=== PATIENT | male | born 1945 | race Caucasian/White ===

== ENCOUNTER 2023-12-11 05:08 | Inpatient (IN) | payer MEDICARE, SELFPAY ==
[2023-12-11] VITALS (37 sets, daily range): BP systolic 90–148; BP diastolic 56–85; PULSE 58–124; TEMP 36.8–36.9; O2SAT 93–97; BMI 28.5; BMI 24.8
--- NOTE | 2023-12-11 05:35 | ED.GENADUL1 ---
Documented by User: Jaguar Hurt MD 12/17/23 02:15 HPI HPI - General Adult General Chief complaint: Shortness of Breath/Dyspnea Stated complaint: SOB Time Seen by Provider: 12/11/23 05:25 Source: patient Mode of arrival: Wheelchair Limitations: no limitations History of Present Illness HPI narrative: patient brought to ER by his son. Patient lives alone. Patient states he feels short of breath. States ongoing for about 4 weeks. States not able to take his medications because he has been vomiting. Denies chest pain or abdominal pain. No fever Related Data Home Medications ?Medication ?Instructions ?Recorded ?Confirmed aspirin 81 mg tablet,delayed 81 mg PO DAILY 12/11/23 12/11/23 release (Adult Aspirin Regimen) atorvastatin 80 mg tablet 80 mg PO DAILY 12/11/23 12/11/23 clopidogrel 75 mg tablet (Plavix) 75 mg PO DAILY 12/11/23 12/11/23 lisinopril 5 mg tablet 5 mg PO DAILY 12/11/23 12/11/23 metoprolol succinate 100 mg 100 mg PO DAILY 12/11/23 12/11/23 tablet,extended release 24 hr Previous Rx's ?Medication ?Instructions ?Recorded cefuroxime axetil 500 mg tablet 500 mg PO BID 10 days #20 tabs 12/13/23 Allergies Allergy/AdvReac Type Severity Reaction Status Date / Time No Known Drug Allergies Allergy Verified 12/11/23 05:18 Opioid HPI Opioid Management Most Recent Opioid Data: Last Pain Assessment 12/13/23 16:17 Last ORT Total Score 0 12/11/23 09:04 Last ORT Risk Category Low Risk 12/11/23 09:04 Review of Systems ROS Status of ROS 10 or more systems reviewed and unremarkable except as noted in history and below [facility] Medical History HLD (hyperlipidemia) ?E78.5 - Hyperlipidemia, unspecified (ICD-10) HTN (hypertension) ?I10 - Essential (primary) hypertension (ICD-10) Former smoker ?Z87.891 - Personal history of nicotine dependence (ICD-10) CAD (coronary artery disease) ?I25.10 - Atherosclerotic heart disease of [place] coronary artery without angina pectoris (ICD-10) Social History Within the past year, how often did you have a drink containing alcohol: never Within the past year, how many standard drinks containing alcohol did you have on a typical day: 1 or 2 Within the past year, how often did you have six or more drinks on one occasion: never Total score: 0 Score interpretation: A score less than 4 is consistent with normal alcohol consumption. Smoking status: Former smoker Non-prescribed substance use: denies use Highest level of school completed/degree received: GED or equivalent Gender Identity: male Exam Constitutional Vital Signs, click to edit/add: Last Vital Signs Temp 97.9 F 12/13/23 13:16 Pulse 62 12/13/23 16:01 Resp 18 12/13/23 13:16 BP 116/74 12/13/23 13:16 Pulse Ox 92 L 12/13/23 16:01 O2 Del Method Room Air 12/13/23 16:01 Common normals: no apparent distress, average body habitus, oriented x3, no limitations, healthy appearing, alert and well nourished [facility] Common normals: normocephalic and head/scalp atraumatic Eye Common normals: EOMs intact bilaterally and conjunctivae normal Respiratory Common normals: normal respiratory effort, no retractions, no use of accessory muscles and clear to auscultation bilaterally Cardio Common normals: S1 normal heart sound and S2 normal heart sound Rate: tachycardic GI Common normals: Normal to inspection, nondistended, normoactive bowel sounds present, soft to palpation and non-tender Extremity Common normals: normal to inspection and full ROM Neuro Common normals: oriented x3, CN's II-XII intact bilaterally, moves all extremities and no focal motor deficits Psych Appearance: grossly normal Course Course Hospital Course: 78 y o male reports nausea, vomiting, loss of appetite x 3 weeks. Work up in ED revealed COVID -19 infection, DEN. Patient was started on IVF and IV abx. He showed clinical improvement during the course of admission and was feeling better subjectively. Urology was consulted for left staghorn calculus and hydroureter but it was felt to be chronic and outpatient f/u was recommended for him. Patient is stable for discharge on oral abx. He was informed that he should return to ED in case of pain,fever, hematuria or any other concerning symptoms. Vital Signs Vital signs: Vital Signs Pulse Rate 124 H 12/11/23 05:17 Respiratory Rate 24 H 12/11/23 05:17 Temperature 97.9 F 12/13/23 13:16 Pulse Rate 62 12/13/23 16:01 Respiratory Rate 18 12/13/23 13:16 Blood Pressure 116/74 12/13/23 13:16 Pulse Oximetry 92 L 12/13/23 16:01 Oxygen Delivery Method Room Air 12/13/23 16:01 Medical Decision Making [facility] Narrative Medical decision making narrative: patient presents complaining of shortness of breath for past 4 weeks. Pulse ox RA 96% and no obvious respiratory distress. States he is not able to take his medications because he keeps vomiting. Oral cavity is dry. He appears week but is AxOx3 labs ordered along with IV hydration patient re evaluated and is now vomiting. Potassium is low and lactic elevated. IVPB potassium and zofran IVP ordered. Lab Data Labs: Lab Results 12/11/23 12/11/23 12/11/23 Range/Units 05:28 05:58 07:17 WBC 8.1 (4.0-11.0) 10^3/uL RBC 4.99 (4.70-6.10) 10^6/uL Hgb 16.5 (14.0-18.0) g/dL Hct 49.0 (42.0-54.0) % MCV 98.2 H (80.0-94.0) fL MCH 33.1 (25.9-34.0) pg MCHC 33.7 (29.9-35.2) g/dL RDW 13.6 (11.0-15.0) % Plt Count 230 (150-450) 10^3/uL MPV 10.5 (9.5-13.5) fL Neut % (Auto) 71.8 (43.0-75.0) % Lymph % (Auto) 17.6 L (20.5-60.0) % [place] % (Auto) 8.1 (1.7-12.0) % Eos % (Auto) 1.4 (0.9-7.0) % Baso % (Auto) 0.9 (0.2-2.0) % Neut # (Auto) 5.9 (1.4-6.5) 10^3/uL Lymph # (Auto) 1.4 (1.2-3.8) 10^3/uL [place] # (Auto) 0.7 (0.3-0.8) 10^3/uL Eos # (Auto) 0.1 (0.0-0.7) 10^3/uL Baso # (Auto) 0.1 (0.0-0.1) 10^3/uL Abs Immat Gran (auto) 0.02 (0.00-0.03) 10^3/uL Imm/Tot Granulo (auto) 0.2 (0.0-0.5) % D-Dimer 0.29 (<=0.59) mg/L FEU Sodium 136 (136-145) mmol/L Potassium 2.7 L* (3.5-5.1) mmol/L Chloride 98 (98-107) mmol/L Carbon Dioxide 26.7 (21.0-32.0) mmol/L Anion Gap 14.0 BUN 21.0 H (7.0-18.0) mg/dL Creatinine 1.68 H (0.70-1.30) mg/dL Est GFR ( Amer) 48 L (>=60) Est GFR (Non-Af Amer) 40 L (>=60) BUN/Creatinine Ratio 12.5 Glucose 148 H (74-106) mg/dL Lactate 4.4 H* (0.4-2.0) mmol/L Calcium 9.4 (8.5-10.1) mg/dL Total Bilirubin 1.3 H (0.2-1.0) mg/dL AST 29 (15-37) U/L ALT 37 (16-63) U/L Alkaline Phosphatase 135 H (46-116) U/L Troponin I High Sens 17.6 (4.0-76.1) pg/mL NT-Pro-B Natriuret Pep 898.0 (<=1800.0) pg/mL Total Protein 7.6 (6.4-8.2) g/dL Albumin 3.1 L (3.4-5.0) g/dL Globulin 4.5 g/dL Albumin/Globulin Ratio 0.7 Urine Color Yellow (YELLOW) Urine Clarity Clear (CLEAR) Urine pH 6.0 (5.0-9.0) Ur Specific [place] 1.015 (1.005-1.025) Urine Protein 100 A (NEG/TRACE) mg/dL Urine Glucose (UA) Negative (NEGATIVE) mg/dL Urine Ketones Negative (NEGATIVE) mg/dL Urine Occult Blood Large A (NEGATIVE) Urine Nitrite Negative (NEGATIVE) Urine Bilirubin Negative (NEGATIVE) Urine Urobilinogen 4.0 A (0.2-1.0) EU/dL Ur Leukocyte Esterase Moderate A (NEGATIVE) Urine RBC 5-10 A (0-2) #/HPF Urine WBC >100 A (NONE SEEN) #/HPF Ur Squamous Epith Cells Few A (NONE/RARE) #/LPF Urine Crystals None seen (None Seen) #/HPF Urine Bacteria Large A (NONE SEEN) #/HPF Urine Casts None seen (NONE SEEN) #/LPF Urine Mucus None seen (NONE SEEN) Ur Culture Indicated? Yes SARS-CoV-2 Ag (CV2AG) Positive A (NEGATIVE) 12/11/23 Range/Units 08:28 WBC (4.0-11.0) 10^3/uL RBC (4.70-6.10) 10^6/uL Hgb (14.0-18.0) g/dL Hct (42.0-54.0) % MCV (80.0-94.0) fL MCH (25.9-34.0) pg MCHC (29.9-35.2) g/dL RDW (11.0-15.0) % Plt Count (150-450) 10^3/uL MPV (9.5-13.5) fL Neut % (Auto) (43.0-75.0) % Lymph % (Auto) (20.5-60.0) % [place] % (Auto) (1.7-12.0) % Eos % (Auto) (0.9-7.0) % Baso % (Auto) (0.2-2.0) % Neut # (Auto) (1.4-6.5) 10^3/uL Lymph # (Auto) (1.2-3.8) 10^3/uL [place] # (Auto) (0.3-0.8) 10^3/uL Eos # (Auto) (0.0-0.7) 10^3/uL Baso # (Auto) (0.0-0.1) 10^3/uL Abs Immat Gran (auto) (0.00-0.03) 10^3/uL Imm/Tot Granulo (auto) (0.0-0.5) % D-Dimer (<=0.59) mg/L FEU Sodium (136-145) mmol/L Potassium (3.5-5.1) mmol/L Chloride (98-107) mmol/L Carbon Dioxide (21.0-32.0) mmol/L Anion Gap BUN (7.0-18.0) mg/dL Creatinine (0.70-1.30) mg/dL Est GFR ( Amer) (>=60) Est GFR (Non-Af Amer) (>=60) BUN/Creatinine Ratio Glucose (74-106) mg/dL Lactate 1.8 (0.4-2.0) mmol/L Calcium (8.5-10.1) mg/dL Total Bilirubin (0.2-1.0) mg/dL AST (15-37) U/L ALT (16-63) U/L Alkaline Phosphatase (46-116) U/L Troponin I High Sens (4.0-76.1) pg/mL NT-Pro-B Natriuret Pep (<=1800.0) pg/mL Total Protein (6.4-8.2) g/dL Albumin (3.4-5.0) g/dL Globulin g/dL Albumin/Globulin Ratio Urine Color (YELLOW) Urine Clarity (CLEAR) Urine pH (5.0-9.0) Ur Specific [place] (1.005-1.025) Urine Protein (NEG/TRACE) mg/dL Urine Glucose (UA) (NEGATIVE) mg/dL Urine Ketones (NEGATIVE) mg/dL Urine Occult Blood (NEGATIVE) Urine Nitrite (NEGATIVE) Urine Bilirubin (NEGATIVE) Urine Urobilinogen (0.2-1.0) EU/dL Ur Leukocyte Esterase (NEGATIVE) Urine RBC (0-2) #/HPF Urine WBC (NONE SEEN) #/HPF Ur Squamous Epith Cells (NONE/RARE) #/LPF Urine Crystals (None Seen) #/HPF Urine Bacteria (NONE SEEN) #/HPF Urine Casts (NONE SEEN) #/LPF Urine Mucus (NONE SEEN) Ur Culture Indicated? SARS-CoV-2 Ag (CV2AG) (NEGATIVE) Discharge Plan Discharge Chief Complaint: Shortness of Breath/Dyspnea Clinical Impression: Dehydration, COVID-19, Vomiting Patient Disposition: Admitted as Observation Time of Disposition Decision: 08:54 Discharge Date/Time: 12/11/23 09:06 Documented by User: Wilberto Doss MD 12/11/23 08:00 HPI HPI - General Adult General Chief complaint: Shortness of Breath/Dyspnea Stated complaint: SOB Time Seen by Provider: 12/11/23 05:25 Related Data Home Medications ?Medication ?Instructions ?Recorded ?Confirmed aspirin 81 mg tablet,delayed 81 mg PO DAILY 12/11/23 12/11/23 release (Adult Aspirin Regimen) atorvastatin 80 mg tablet 80 mg PO DAILY 12/11/23 12/11/23 clopidogrel 75 mg tablet (Plavix) 75 mg PO DAILY 12/11/23 12/11/23 lisinopril 5 mg tablet 5 mg PO DAILY 12/11/23 12/11/23 metoprolol succinate 100 mg 100 mg PO DAILY 12/11/23 12/11/23 tablet,extended release 24 hr Previous Rx's ?Medication ?Instructions ?Recorded cefuroxime axetil 500 mg tablet 500 mg PO BID 10 days #20 tabs 12/13/23 Allergies Allergy/AdvReac Type Severity Reaction Status Date / Time No Known Drug Allergies Allergy Verified 12/11/23 05:18 Opioid HPI Opioid Management Most Recent Opioid Data: Last Pain Assessment 12/13/23 16:17 Last ORT Total Score 0 12/11/23 09:04 Last ORT Risk Category Low Risk 12/11/23 09:04 [facility] Medical History HLD (hyperlipidemia) ?E78.5 - Hyperlipidemia, unspecified (ICD-10) HTN (hypertension) ?I10 - Essential (primary) hypertension (ICD-10) Former smoker ?Z87.891 - Personal history of nicotine dependence (ICD-10) CAD (coronary artery disease) ?I25.10 - Atherosclerotic heart disease of [place] coronary artery without angina pectoris (ICD-10) Social History Within the past year, how often did you have a drink containing alcohol: never Within the past year, how many standard drinks containing alcohol did you have on a typical day: 1 or 2 Within the past year, how often did you have six or more drinks on one occasion: never Total score: 0 Score interpretation: A score less than 4 is consistent with normal alcohol consumption. Smoking status: Former smoker Non-prescribed substance use: denies use Highest level of school completed/degree received: GED or equivalent Gender Identity: male Exam Constitutional Vital Signs, click to edit/add: Last Vital Signs Temp 97.9 F 12/13/23 13:16 Pulse 62 12/13/23 16:01 Resp 18 12/13/23 13:16 BP 116/74 12/13/23 13:16 Pulse Ox 92 L 12/13/23 16:01 O2 Del Method Room Air 12/13/23 16:01 Course Course Hospital Course: 78 y o male reports nausea, vomiting, loss of appetite x 3 weeks. Work up in ED revealed COVID -19 infection, DEN. Patient was started on IVF and IV abx. He showed clinical improvement during the course of admission and was feeling better subjectively. Urology was consulted for left staghorn calculus and hydroureter but it was felt to be chronic and outpatient f/u was recommended for him. Patient is stable for discharge on oral abx. He was informed that he should return to ED in case of pain,fever, hematuria or any other concerning symptoms. Vital Signs Vital signs: Vital Signs Pulse Rate 124 H 12/11/23 05:17 Respiratory Rate 24 H 12/11/23 05:17 Temperature 97.9 F 12/13/23 13:16 Pulse Rate 62 12/13/23 16:01 Respiratory Rate 18 12/13/23 13:16 Blood Pressure 116/74 12/13/23 13:16 Pulse Oximetry 92 L 12/13/23 16:01 Oxygen Delivery Method Room Air 12/13/23 16:01 Medical Decision Making MDM Narrative Medical decision making narrative: patient presents complaining of shortness of breath for past 4 weeks. Pulse ox RA 96% and no obvious respiratory distress. States he is not able to take his medications because he keeps vomiting. Oral cavity is dry. He appears week but is AxOx3 labs ordered along with IV hydration patient re evaluated and is now vomiting. Potassium is low and lactic elevated. IVPB potassium and zofran IVP ordered. This patient's care was transferred to myself at 07 100. Patient's problem list includes low potassium/COVID-positive/azotemia/UTI. Patient CT scan was discussed with the on-call attending physician. Patient was started on Levaquin in the emergency room. Patient is getting a second liter of fluids. Initial elevation lactate suggest sepsis. Lab Data Labs: Lab Results 12/11/23 12/11/23 12/11/23 Range/Units 05:28 05:58 07:17 WBC 8.1 (4.0-11.0) 10^3/uL RBC 4.99 (4.70-6.10) 10^6/uL Hgb 16.5 (14.0-18.0) g/dL Hct 49.0 (42.0-54.0) % MCV 98.2 H (80.0-94.0) fL MCH 33.1 (25.9-34.0) pg MCHC 33.7 (29.9-35.2) g/dL RDW 13.6 (11.0-15.0) % Plt Count 230 (150-450) 10^3/uL MPV 10.5 (9.5-13.5) fL Neut % (Auto) 71.8 (43.0-75.0) % Lymph % (Auto) 17.6 L (20.5-60.0) % [place] % (Auto) 8.1 (1.7-12.0) % Eos % (Auto) 1.4 (0.9-7.0) % Baso % (Auto) 0.9 (0.2-2.0) % Neut # (Auto) 5.9 (1.4-6.5) 10^3/uL Lymph # (Auto) 1.4 (1.2-3.8) 10^3/uL [place] # (Auto) 0.7 (0.3-0.8) 10^3/uL Eos # (Auto) 0.1 (0.0-0.7) 10^3/uL Baso # (Auto) 0.1 (0.0-0.1) 10^3/uL Abs Immat Gran (auto) 0.02 (0.00-0.03) 10^3/uL Imm/Tot Granulo (auto) 0.2 (0.0-0.5) % D-Dimer 0.29 (<=0.59) mg/L FEU Sodium 136 (136-145) mmol/L Potassium 2.7 L* (3.5-5.1) mmol/L Chloride 98 (98-107) mmol/L Carbon Dioxide 26.7 (21.0-32.0) mmol/L Anion Gap 14.0 BUN 21.0 H (7.0-18.0) mg/dL Creatinine 1.68 H (0.70-1.30) mg/dL Est GFR ( Amer) 48 L (>=60) Est GFR (Non-Af Amer) 40 L (>=60) BUN/Creatinine Ratio 12.5 Glucose 148 H (74-106) mg/dL Lactate 4.4 H* (0.4-2.0) mmol/L Calcium 9.4 (8.5-10.1) mg/dL Total Bilirubin 1.3 H (0.2-1.0) mg/dL AST 29 (15-37) U/L ALT 37 (16-63) U/L Alkaline Phosphatase 135 H (46-116) U/L Troponin I High Sens 17.6 (4.0-76.1) pg/mL NT-Pro-B Natriuret Pep 898.0 (<=1800.0) pg/mL Total Protein 7.6 (6.4-8.2) g/dL Albumin 3.1 L (3.4-5.0) g/dL Globulin 4.5 g/dL Albumin/Globulin Ratio 0.7 Urine Color Yellow (YELLOW) Urine Clarity Clear (CLEAR) Urine pH 6.0 (5.0-9.0) Ur Specific [place] 1.015 (1.005-1.025) Urine Protein 100 A (NEG/TRACE) mg/dL Urine Glucose (UA) Negative (NEGATIVE) mg/dL Urine Ketones Negative (NEGATIVE) mg/dL Urine Occult Blood Large A (NEGATIVE) Urine Nitrite Negative (NEGATIVE) Urine Bilirubin Negative (NEGATIVE) Urine Urobilinogen 4.0 A (0.2-1.0) EU/dL Ur Leukocyte Esterase Moderate A (NEGATIVE) Urine RBC 5-10 A (0-2) #/HPF Urine WBC >100 A (NONE SEEN) #/HPF Ur Squamous Epith Cells Few A (NONE/RARE) #/LPF Urine Crystals None seen (None Seen) #/HPF Urine Bacteria Large A (NONE SEEN) #/HPF Urine Casts None seen (NONE SEEN) #/LPF Urine Mucus None seen (NONE SEEN) Ur Culture Indicated? Yes SARS-CoV-2 Ag (CV2AG) Positive A (NEGATIVE) 12/11/23 Range/Units 08:28 WBC (4.0-11.0) 10^3/uL RBC (4.70-6.10) 10^6/uL Hgb (14.0-18.0) g/dL Hct (42.0-54.0) % MCV (80.0-94.0) fL MCH (25.9-34.0) pg MCHC (29.9-35.2) g/dL RDW (11.0-15.0) % Plt Count (150-450) 10^3/uL MPV (9.5-13.5) fL Neut % (Auto) (43.0-75.0) % Lymph % (Auto) (20.5-60.0) % [place] % (Auto) (1.7-12.0) % Eos % (Auto) (0.9-7.0) % Baso % (Auto) (0.2-2.0) % Neut # (Auto) (1.4-6.5) 10^3/uL Lymph # (Auto) (1.2-3.8) 10^3/uL [place] # (Auto) (0.3-0.8) 10^3/uL Eos # (Auto) (0.0-0.7) 10^3/uL Baso # (Auto) (0.0-0.1) 10^3/uL Abs Immat Gran (auto) (0.00-0.03) 10^3/uL Imm/Tot Granulo (auto) (0.0-0.5) % D-Dimer (<=0.59) mg/L FEU Sodium (136-145) mmol/L Potassium (3.5-5.1) mmol/L Chloride (98-107) mmol/L Carbon Dioxide (21.0-32.0) mmol/L Anion Gap BUN (7.0-18.0) mg/dL Creatinine (0.70-1.30) mg/dL Est GFR ( Amer) (>=60) Est GFR (Non-Af Amer) (>=60) BUN/Creatinine Ratio Glucose (74-106) mg/dL Lactate 1.8 (0.4-2.0) mmol/L Calcium (8.5-10.1) mg/dL Total Bilirubin (0.2-1.0) mg/dL AST (15-37) U/L ALT (16-63) U/L Alkaline Phosphatase (46-116) U/L Troponin I High Sens (4.0-76.1) pg/mL NT-Pro-B Natriuret Pep (<=1800.0) pg/mL Total Protein (6.4-8.2) g/dL Albumin (3.4-5.0) g/dL Globulin g/dL Albumin/Globulin Ratio Urine Color (YELLOW) Urine Clarity (CLEAR) Urine pH (5.0-9.0) Ur Specific [place] (1.005-1.025) Urine Protein (NEG/TRACE) mg/dL Urine Glucose (UA) (NEGATIVE) mg/dL Urine Ketones (NEGATIVE) mg/dL Urine Occult Blood (NEGATIVE) Urine Nitrite (NEGATIVE) Urine Bilirubin (NEGATIVE) Urine Urobilinogen (0.2-1.0) EU/dL Ur Leukocyte Esterase (NEGATIVE) Urine RBC (0-2) #/HPF Urine WBC (NONE SEEN) #/HPF Ur Squamous Epith Cells (NONE/RARE) #/LPF Urine Crystals (None Seen) #/HPF Urine Bacteria (NONE SEEN) #/HPF Urine Casts (NONE SEEN) #/LPF Urine Mucus (NONE SEEN) Ur Culture Indicated? SARS-CoV-2 Ag (CV2AG) (NEGATIVE) Discharge Plan Discharge Chief Complaint: Shortness of Breath/Dyspnea Clinical Impression: Dehydration, COVID-19, Vomiting Patient Disposition: Admitted as Observation Time of Disposition Decision: 08:54 Discharge Date/Time: 12/11/23 09:06
--- NOTE | 2023-12-11 05:38 | XR_ITS ---
The [address] [address] Patient Name: JUSTUS LOYOLA MRN: [id number] date: 1945 Sex: M Assigned Patient Location: ER Current Patient Location: ER Accession/Order Number: [id number] Exam Date: 12/11/2023 06:20 Report Date: 12/11/2023 07:00 At the request of: MARK STATON Procedure: XR chest 1V EXAMINATION: XR chest 1V HISTORY: short of breath COMPARISON: No relevant comparison available. FINDINGS: LUNGS: No significant pulmonary parenchymal abnormalities. VASCULATURE: No increased pulmonary vasculature. PLEURA: No pneumothorax, effusion, or pleural thickening. CARDIAC: No cardiomegaly or cardiac silhouette abnormality. MEDIASTINUM: No visible mass or adenopathy. BONES: No fracture or visible bone lesion. OTHER: Negative. XR/XR chest 1V IMPRESSION: 1. No acute cardiopulmonary process. Electronically authenticated by: LUI JANSEN Date: 12/11/2023 07:00
--- NOTE | 2023-12-11 05:38 | CT_ITS ---
The [address] [address] Patient Name: JUSTUS LOYOLA MRN: [id number] date: 1945 Sex: M Assigned Patient Location: ER Current Patient Location: ER Accession/Order Number: [id number] Exam Date: 12/11/2023 06:20 Report Date: 12/11/2023 06:59 At the request of: MARK STATON Procedure: CT abdomen pelvis w con EXAMINATION: CT abdomen pelvis w con HISTORY: vomiting COMPARISON: No relevant comparison available. TECHNIQUE: Axial, Coronal, and Sagittal images were obtained without and/or with IV contrast as indicated by examination type. Dose reduction techniques were achieved by using automated exposure control and/or adjustment of mA and/or kV according to patient size and/or use of iterative reconstruction technique. FINDINGS: LUNG BASES: No visible pulmonary or pleural disease. LIVER: No enlargement, atrophy, suspicious density, or significant focal lesion. BILIARY: No dilatation or calcification. PANCREAS: No lesion, fluid collection, or abnormal duct dilatation. SPLEEN: No enlargement or focal lesion. ADRENALS: No mass or enlargement. KIDNEYS: Chronic left hydronephrosis with large 3.5 cm staghorn calcification within the renal pelvis. No overtly dilated ureter with periureteral stranding/inflamed appearance of distal ureter which returns to normal caliber. No appreciable stone or mass within the ureter. Benign-appearing right renal cyst. BOWEL/MESENTERY: No visible mass, obstruction, or bowel wall thickening. AORTA/VASCULAR: No aneurysm or dissection. RETROPERITONEUM: No mass or adenopathy. LYMPH NODES: No adenopathy. URINARY BLADDER: Mild wall thickening and surrounding stranding. Small diverticulum projecting from right side. PELVIC ORGANS: No visible mass. Pelvic organs appropriate for patient age. ABDOMINAL WALL: Small fat filled left inguinal hernia. No strangulation. BONES: No bony lesion or fracture. OTHER: Negative. CT/CT abdomen pelvis w con IMPRESSION: 1. Suspect cystitis ascending into left ureter. 2. Large staghorn calcification within left kidney resulting in chronic hydronephrosis. Electronically authenticated by: LUI JANSEN Date: 12/11/2023 06:59
[2023-12-11 05:47] LABS: Basophils Absolute Auto 0.1 10^3/uL (0.0-0.1); Basophils Percent Auto 0.9 % (0.2-2.0); Eosinophils Absolute Auto 0.1 10^3/uL (0.0-0.7); Eosinophils Percent Auto 1.4 % (0.9-7.0); Hemoglobin 16.5 g/dL (14.0-18.0); Immature Granulocytes Abs Auto 0.02 10^3/uL (0.00-0.03); Immature Granulocytes Pct Auto 0.2 % (0.0-0.5); Lymphocytes Absolute Auto 1.4 10^3/uL (1.2-3.8); Lymphocytes Percent Auto 17.6 % (20.5-60.0); Mean Corpuscular HGB Conc 33.7 g/dL (29.9-35.2); Mean Corpuscular Hemoglobin 33.1 pg (25.9-34.0); Mean Corpuscular Volume 98.2 fL (80.0-94.0); Mean Platelet Volume 10.5 fL (9.5-13.5); Monocytes Absolute Auto 0.7 10^3/uL (0.3-0.8); Monocytes Percent Auto 8.1 % (1.7-12.0); Neutrophils Absolute Auto 5.9 10^3/uL (1.4-6.5); Neutrophils Percent Auto 71.8 % (43.0-75.0); Platelet Count 230 10^3/uL (150-450); Red Blood Count 4.99 10^6/uL (4.70-6.10); Red Cell Distribution Width 13.6 % (11.0-15.0); White Blood Count 8.1 10^3/uL (4.0-11.0)
[2023-12-11 05:55] LABS: D Dimer 0.29 mg/L FEU (<=0.59)
[2023-12-11] MEDS: 0.9 % SODIUM CHLORIDE 1,000 ML 999 ML IV (05:58)
[2023-12-11 06:05] LABS: Alanine Aminotransferase 37 U/L (16-63); Albumin Globulin Ratio 0.7; Albumin Level 3.1 g/dL (3.4-5.0); Alkaline Phosphatase 135 U/L (46-116); Aspartate Amino Transferase 29 U/L (15-37); BUN Creatinine Ratio 12.5; Bilirubin Total 1.3 mg/dL (0.2-1.0); Calcium 9.4 mg/dL (8.5-10.1); Carbon Dioxide 26.7 mmol/L (21.0-32.0); Chloride 98 mmol/L (98-107); Estimated GFR (African America 48 (>=60); Estimated GFR (Non-African Ame 40 (>=60); Globulin 4.5 g/dL; Glucose 148 mg/dL (74-106); Sodium 136 mmol/L (136-145); Total Protein 7.6 g/dL (6.4-8.2); Troponin I High Sensitivity 17.6 pg/mL (4.0-76.1)
[2023-12-11 06:07] LABS: Lactate/Lactic Acid 4.4 mmol/L (0.4-2.0); Potassium 2.7 mmol/L (3.5-5.1)
[2023-12-11] MEDS: ONDANSETRON PF 4 MG/2 ML VIAL IV (06:13)
[2023-12-11 06:14] LABS: Internal Control Within Normal Limits; SARS-CoV-2 Ag POSITIVE (NEGATIVE)
[2023-12-11] MEDS: POTASSIUM CHLORIDE IN WATER 10 MEQ/100 ML PIGGYBACK 100 MEQ IV ×4 (06:47→09:34)
--- NOTE | 2023-12-11 07:25 | PC.NURSE ---
rita cathed for UA specimen. Pt tolerated well. Attend was damp pericare provided and attend changed. Family at bedside after procedure.
[2023-12-11 07:31] LABS: Bilirubin Urine NEGATIVE (NEGATIVE); Blood Urine LARGE (NEGATIVE); Clarity Urine CLEAR (CLEAR); Color Urine YELLOW (YELLOW); Glucose Urine UA NEGATIVE (NEGATIVE); Ketones Urine NEGATIVE (NEGATIVE); Leukocyte Esterase Urine MODERATE (NEGATIVE); Nitrite Urine NEGATIVE (NEGATIVE); Protein Urine 100 mg/dL (NEG/TRACE); Specific Gravity Urine 1.015 (1.005-1.025)
[2023-12-11 07:32] LABS: Urine Microscopic Indicated YES
[2023-12-11 07:45] LABS: Bacteria Urine LARGE #/HPF (NONE SEEN); Cast Seen? NONE SEEN #/LPF (NONE SEEN); Crystals Seen? None Seen #/HPF (None Seen); Mucus Urine NONE SEEN (NONE SEEN); Squamous Epithelial Cell Urine FEW #/LPF (NONE/RARE); WBC Urine >100 #/HPF (NONE SEEN)
[2023-12-11 07:46] LABS: Urine Culture Indicated YES
[2023-12-11] MEDS: LEVOFLOXACIN IN DEXTROSE 5 % 500 MG/100 ML PIGGYBACK 100 MG IV (08:12)
--- NOTE | 2023-12-11 08:44 | ECG_ITS ---
The [facility] Test Date: 2023-12-11 Pat Name: JUSTUS LOYOLA Department: Room: - Gender: Male [employer]: : 1945 Requested By: Order Number: [id number] Reading MD: MALIK ANTOINE Measurements Intervals Duncan Rate: 122 P: -[id number] AR: -[id number] QRS: -37 QRSD: 144 T: 50 QT: 408 QTc: 481 Interpretive Statements 1922 Undetermined rhythm (tachycardia) with occasional ventricular premature complexes 2450 Right bundle branch block 3534 Lateral myocardial infarction, age undetermined 3631 Inferior myocardial infarction, possibly acute [address] depression, possible subendocardial injury 9150 abnormal ECG No previous ECG available for comparison Electronically Signed On 12-11-2023 23:34:09 EDT by MALIK ANTOINE
[2023-12-11 08:54] LABS: Lactate/Lactic Acid 1.8 mmol/L (0.4-2.0)
[2023-12-11] MEDS: CEFTRIAXONE 1,000 MG in 0.9 % SODIUM CHLORIDE 50 ML 100 MG IV (09:37)
[2023-12-11] MEDS: METOPROLOL SUCCINATE 100 MG TAB.ER.24H PO (09:37)
[2023-12-11] MEDS: DEXAMETHASONE 4 MG TABLET 6 MG PO (09:37)
[2023-12-11] MEDS: LACTATED RINGER'S SOLUTION 1,000 ML 125 ML IV ×2 (09:39→20:24)
[2023-12-11] MEDS: POTASSIUM CHLORIDE 10 MEQ ER TABLET 40 MEQ PO (09:43)
--- NOTE | 2023-12-11 10:31 | CM.NOTE ---
Rounds made with Dr. Roberts. Son in room as well and helps to answer questions. Dr. Roberts reviewed plan of care. Consult to Urology d/t findings on CT scan.
--- NOTE | 2023-12-11 11:01 | PM.HP ---
HPI H&P: HPI History of Present Illness Chief complaint: SOB, COVID+, DEHYDRATION, VOMITING Narrative: 78 y o male reports nausea, vomiting, loss of appetite x 3 weeks. He also reports difficulty with urination including hesitancy, sense of incomplete bladder emptying and dysuria for around the same time. Denies gross hematuria. Patient also has had epigastric abdominal pain on arrival buts its resolved now. Patient denies cough but reports sob chronically for months but feels that it got worse recently. Denies fever/chills. Denies any other resp symptoms. Patient's work up in ED revealed DEN, cystitis and COVID URTI. He also had lactate acid levels and was admitted to med surg for sepsis sec to UTI/COVID. Patient feels a little better but still quite week/tired. He is feeling nauseous and has poor appetite. Opioid HPI Opioid Management Most Recent Pain and Opioid Data: Last ORT Total Score 0 12/11/23 09:04 Last ORT Risk Category Low Risk 12/11/23 09:04 Review of Systems ROS Status of ROS 10 or more systems reviewed and unremarkable except as noted in history and below [facility] Medical History (Updated 12/11/23 @ 11:11 by Shaikh Alejandra MD) HLD (hyperlipidemia) ?E78.5 - Hyperlipidemia, unspecified (ICD-10) HTN (hypertension) ?I10 - Essential (primary) hypertension (ICD-10) Former smoker ?Z87.891 - Personal history of nicotine dependence (ICD-10) CAD (coronary artery disease) ?I25.10 - Atherosclerotic heart disease of [place] coronary artery without angina pectoris (ICD-10) Social History (Updated 12/11/23 @ 11:09 by Shaikh Alejandra MD) Within the past year, how often did you have a drink containing alcohol: never Within the past year, how many standard drinks containing alcohol did you have on a typical day: 1 or 2 Within the past year, how often did you have six or more drinks on one occasion: never Total score: 0 Score interpretation: A score less than 4 is consistent with normal alcohol consumption. Smoking status: Former smoker Non-prescribed substance use: denies use Highest level of school completed/degree received: GED or equivalent Gender Identity: male Meds Home Medications and Allergies Home Medications ?Medication ?Instructions ?Recorded ?Confirmed ?Type aspirin 81 mg tablet,delayed 81 mg PO DAILY 12/11/23 12/11/23 History release (Adult Aspirin Regimen) atorvastatin 80 mg tablet 80 mg PO DAILY 12/11/23 12/11/23 History clopidogrel 75 mg tablet (Plavix) 75 mg PO DAILY 12/11/23 12/11/23 History lisinopril 5 mg tablet 5 mg PO DAILY 12/11/23 12/11/23 History metoprolol succinate 100 mg 100 mg PO DAILY 12/11/23 12/11/23 History tablet,extended release 24 hr Allergies Allergy/AdvReac Type Severity Reaction Status Date / Time No Known Drug Allergies Allergy Verified 12/11/23 05:18 Exam Constitutional Vital Signs, click to edit/add: Last Vital Signs Temp 98.5 F 12/11/23 09:04 Pulse 119 H 12/11/23 09:04 Resp 16 12/11/23 09:04 BP 148/80 H 12/11/23 09:04 Pulse Ox 93 L 12/11/23 09:04 O2 Del Method Room Air 12/11/23 09:04 Documenting provider has reviewed patient's vital signs: yes Common normals: no apparent distress and oriented x3 General appearance: cooperative, ill appearing and frail appearing Respiratory Common normals: normal respiratory effort and clear to auscultation bilaterally Effort & inspection: able to speak in complete sentences Auscultation: clear to auscultation bilaterally Cardio Common normals: regular rate, S1 normal heart sound and S2 normal heart sound Rate: regular rate Heart sounds: S1 normal and S2 normal GI Common normals: Normal to inspection, nondistended, normoactive bowel sounds present, soft to palpation, non-tender and no hepatosplenomegaly Palpation: soft and no hepatosplenomegaly Extremity Common normals: no clubbing, cyanosis or edema Neuro Common normals: oriented x3, moves all extremities and no focal motor deficits Psych Common normals: mental status grossly normal, denies hallucinations, denies homicidal ideation and denies suicidal ideation Results Labs Labs: Short CBC 12/11/23 Range/Units 05:28 WBC 8.1 (4.0-11.0) 10^3/uL Hgb 16.5 (14.0-18.0) g/dL Hct 49.0 (42.0-54.0) % Plt Count 230 (150-450) 10^3/uL BMP 12/11/23 05:28 Sodium 136 Potassium 2.7 L* Chloride 98 Carbon Dioxide 26.7 BUN 21.0 H Creatinine 1.68 H Glucose 148 H Calcium 9.4 Liver Function 12/11/23 Range/Units 05:28 Total Bilirubin 1.3 H (0.2-1.0) mg/dL AST 29 (15-37) U/L ALT 37 (16-63) U/L Alkaline Phosphatase 135 H (46-116) U/L Albumin 3.1 L (3.4-5.0) g/dL Urine 12/11/23 Range/Units 07:17 Urine Color Yellow (YELLOW) Urine Clarity Clear (CLEAR) Urine pH 6.0 (5.0-9.0) Ur Specific [place] 1.015 (1.005-1.025) Urine Protein 100 A (NEG/TRACE) mg/dL Urine Glucose (UA) Negative (NEGATIVE) mg/dL Assessment and Plan Assessment and Plan (1) Sepsis: Assessment and Plan: SIRS (HR > 120, RR> 28), source of infection - UTI, with organ dysfunction (DEN) On IVF, IV rocephin, f/u urine and blood cx. Qualifiers: Sepsis type: sepsis due to unspecified organism Sepsis acute organ dysfunction status: with acute organ dysfunction Severe sepsis acute organ dysfunction type: acute renal failure Acute renal failure type: unspecified Severe sepsis shock status: without septic shock Qualified Code(s): A41.9 - Sepsis, unspecified organism; R65.20 - Severe sepsis without septic shock; N17.9 - Acute kidney failure, unspecified (2) COVID-19: Assessment and Plan: Reports SOB, but no hypoxia, infiltrates noted on CXR Will order Decadron, c/w albuterol as needed and q4. Monitor. (3) UTI (urinary tract infection): Assessment and Plan: associated with and due to staghorn calculus. On IV rocephin. f/u urine/blood cx. Urology consulted. Qualifiers: Urinary tract infection type: acute cystitis Hematuria presence: without hematuria Qualified Code(s): N30.00 - Acute cystitis without hematuria (4) DEN (acute kidney injury): Assessment and Plan: No known renal/kidney problems at baseline. As far as I can tell, he has normal renal function at baseline. DEN likely sec to volume depletion/dehydration. on IVF. Monitor renal function. (5) Nausea and vomiting: Assessment and Plan: suspected to be due to covid and or UTI. Zofran as needed. advance diet as tolerated. Qualifiers: Vomiting type: unspecified Qualified Code(s): R11.2 - Nausea with vomiting, unspecified (6) Dehydration: Assessment and Plan: due to poor PO intake/ Nausea/vomiting. On IVF. Monitor volume status, renal function (7) HTN (hypertension): Assessment and Plan: Hold lisinopril due to DEN. C/w lopressor. Qualifiers: Hypertension type: primary hypertension Qualified Code(s): I10 - Essential (primary) hypertension (8) CAD (coronary artery disease): Assessment and Plan: s/p PCI in 2007. On ASA, plavix and statin Qualifiers: Coronary Disease-Associated Artery/Lesion type: [place] artery [place] vs. transplanted heart: [place] heart Associated angina: without angina Qualified Code(s): I25.10 - Atherosclerotic heart disease of [place] coronary artery without angina pectoris (9) Staghorn calculus: Assessment and Plan: Staghorn calculus with chronic hydronephrosis. Associated UTI. COnsult urology. (10) HLD (hyperlipidemia): Assessment and Plan: c/w statin Qualifiers: Hyperlipidemia type: unspecified Qualified Code(s): E78.5 - Hyperlipidemia, unspecified Plan C/w IVF and rocephin. Monitor UO, serum creatinine closely. Awaiting urology's recommendations. Changed to inpatient as patient will likely require inpatient treatment and close monitoring for his acute illness including sepsis, UTI and DEN. Urinary Catheter Management Urinary Catheter Management Urethral: Cath placed during this visit: yes Urethral indwelling: No Insertion date: 12/11/23 Insertion time: 07:17
--- NOTE | 2023-12-11 11:23 | SWNOTE1 ---
SW met with pt to discuss dc needs. Pt's son and daughter in law in room as well. Pt lives at home by himself. Son is about 10-15 mins away. Pt also have friends that can assist as needed. Pt does not use any DME at home, but has access to walker if needed. He voiced he is getting short of breath when going outside in the heat. SW did talk to him about HH or SNF, but will assess once therapy works with him. Important Message from Medicare reviewed and discussed with patient. Pt. verbalized understanding and signed the form. Original given to patient and copy placed in patient?s chart.
[2023-12-11] MEDS: ALBUTEROL SULFATE 200 PUFF/6.7 GM INHALER IH ×4 (11:35→23:39)
[2023-12-11] MEDS: ASPIRIN 81 MG TABLET.DR PO (11:47)
[2023-12-11] MEDS: ATORVASTATIN CALCIUM 40 MG TABLET 80 MG PO (11:47)
[2023-12-11] MEDS: CLOPIDOGREL BISULFATE 75 MG TABLET PO (11:48)
--- NOTE | 2023-12-11 13:06 | SWNOTE1 ---
SW reviewed therapy notes and recommended pt return home alone. SW to check back in with pt.
--- NOTE | 2023-12-11 13:32 | SWNOTE1 ---
SW stopped back in and spoke with pt and pt's son and daughter in law. Pt did feel he did well with therapy and family does agree. Pt voiced he does not feel he needs HH or anything at discharge at this time. SW to follow as needed.
[2023-12-12] VITALS (23 sets, daily range): BP systolic 92–138; BP diastolic 56–84; PULSE 58–93; TEMP 36.3–36.5; O2SAT 92–97
[2023-12-12] MEDS: ALBUTEROL SULFATE 200 PUFF/6.7 GM INHALER IH ×6 (03:55→23:26)
[2023-12-12] MEDS: LACTATED RINGER'S SOLUTION 1,000 ML 125 ML IV ×3 (05:50→20:15)
[2023-12-12 07:17] LABS: Basophils Percent Auto 0.3 % (0.2-2.0); Eosinophils Percent Auto 0.3 % (0.9-7.0); Hematocrit 41.8 % (42.0-54.0); Hemoglobin 14.1 g/dL (14.0-18.0); Immature Granulocytes Abs Auto 0.03 10^3/uL (0.00-0.03); Immature Granulocytes Pct Auto 0.4 % (0.0-0.5); Lymphocytes Absolute Auto 1.5 10^3/uL (1.2-3.8); Lymphocytes Percent Auto 20.9 % (20.5-60.0); Mean Corpuscular HGB Conc 33.7 g/dL (29.9-35.2); Mean Corpuscular Hemoglobin 33.3 pg (25.9-34.0); Mean Corpuscular Volume 98.6 fL (80.0-94.0); Mean Platelet Volume 10.3 fL (9.5-13.5); Monocytes Absolute Auto 0.7 10^3/uL (0.3-0.8); Monocytes Percent Auto 9.2 % (1.7-12.0); Neutrophils Absolute Auto 4.8 10^3/uL (1.4-6.5); Neutrophils Percent Auto 68.9 % (43.0-75.0); Platelet Count 144 10^3/uL (150-450); Red Blood Count 4.24 10^6/uL (4.70-6.10); Red Cell Distribution Width 13.9 % (11.0-15.0)
[2023-12-12 07:49] LABS: Alanine Aminotransferase 28 U/L (16-63); Albumin Level 2.6 g/dL (3.4-5.0); Alkaline Phosphatase 106 U/L (46-116); Anion Gap 11.4; Aspartate Amino Transferase 27 U/L (15-37); BUN Creatinine Ratio 17.7; Calcium 8.9 mg/dL (8.5-10.1); Carbon Dioxide 27.8 mmol/L (21.0-32.0); Chloride 101 mmol/L (98-107); Estimated GFR (African America >60 (>=60); Estimated GFR (Non-African Ame >60 (>=60); Glucose 100 mg/dL (74-106); Potassium 3.2 mmol/L (3.5-5.1); Sodium 137 mmol/L (136-145); Total Protein 6.6 g/dL (6.4-8.2)
[2023-12-12 07:51] LABS: Albumin Globulin Ratio 0.7
[2023-12-12] MEDS: DEXAMETHASONE 4 MG TABLET 6 MG PO (09:44)
[2023-12-12] MEDS: METOPROLOL SUCCINATE 100 MG TAB.ER.24H PO (09:44)
[2023-12-12] MEDS: ASPIRIN 81 MG TABLET.DR PO (09:45)
[2023-12-12] MEDS: CLOPIDOGREL BISULFATE 75 MG TABLET PO (09:46)
[2023-12-12] MEDS: ATORVASTATIN CALCIUM 40 MG TABLET 80 MG PO (09:46)
[2023-12-12] MEDS: CEFTRIAXONE 1,000 MG in 0.9 % SODIUM CHLORIDE 50 ML 100 MG IV (09:47)
--- NOTE | 2023-12-12 10:56 | CM.NOTE ---
Rounds made with Dr. Roberts. Continue with current treatment plan. No discharge today.
--- NOTE | 2023-12-12 10:59 | REH.PTDLY ---
Physical Therapy Daily Note PT Daily Note/Assess Start: 12/12/23 10:50 Freq: Status: Active Protocol: Document 12/12/23 09:30 [facility] (Rec: 12/12/23 10:59 [id number] Physical Therapy Daily Note/Assessment Time In 09:30 Time Out 09:40 Subjective Pt up in chair, had a rough morning with a diarrhea. Feeling a little 'woozy' yet, but willing to try some exs. Have not slept in a day or two per pt report. Therapeutic Exercise Minutes (minutes) 8 Therapeutic Exercise Units 1 Therapeutic Exercise Treatment With pt's legs elevated in recliner instructed pt in performing AP, QS, heel slides , hip abd slides, and SLR 10x ea. Pt performs at slower pace . Total Therapy Minutes 8 Total Physical Therapy Units 1 Daily Note Summary Pt declines further exs or transfers at this time as he reports he just isn't feeling the greatest. Leg exs only in chair this date due to this.
--- NOTE | 2023-12-12 11:58 | PM.IMPN1 ---
Progress Note: A&P Assessment and Plan (1) Sepsis: Assessment and Plan: Stable hemodynamics. Reduce Ivf to 100/hr. C/w rocephin for UTI, c/w decadron for COVID. Qualifiers: Sepsis type: sepsis due to unspecified organism Sepsis acute organ dysfunction status: with acute organ dysfunction Severe sepsis acute organ dysfunction type: acute renal failure Acute renal failure type: unspecified Severe sepsis shock status: without septic shock Qualified Code(s): A41.9 - Sepsis, unspecified organism; R65.20 - Severe sepsis without septic shock; N17.9 - Acute kidney failure, unspecified (2) COVID-19: Assessment and Plan: Doing better today. Denies resp complaints. C/w po decadron (3) UTI (urinary tract infection): Assessment and Plan: likely due to and associated renal stone. Urology on board. Catheter inserted today as per Urology. Awaiting their recs. Qualifiers: Urinary tract infection type: acute cystitis Hematuria presence: without hematuria Qualified Code(s): N30.00 - Acute cystitis without hematuria (4) DEN (acute kidney injury): Assessment and Plan: likely prerenal azotemia, resolved. C/w IVF (5) Nausea and vomiting: Assessment and Plan: Not vomiting now. Still nauseous. Zofran as needed. Qualifiers: Vomiting type: unspecified Qualified Code(s): R11.2 - Nausea with vomiting, unspecified (6) Dehydration: Assessment and Plan: Improved with IV hydration. C/w IVF at 100 (7) HTN (hypertension): Assessment and Plan: Lisinopril on hold. Monitor BP without it. Cw toprol Qualifiers: Hypertension type: primary hypertension Qualified Code(s): I10 - Essential (primary) hypertension (8) CAD (coronary artery disease): Assessment and Plan: c/w toprol, statin Qualifiers: Coronary Disease-Associated Artery/Lesion type: [place] artery [place] vs. transplanted heart: [place] heart Associated angina: without angina Qualified Code(s): I25.10 - Atherosclerotic heart disease of [place] coronary artery without angina pectoris (9) Staghorn calculus: Assessment and Plan: Awaiting urology recs. (10) HLD (hyperlipidemia): Assessment and Plan: c/w statn Qualifiers: Hyperlipidemia type: unspecified Qualified Code(s): E78.5 - Hyperlipidemia, unspecified Internal Medicine - PN: Subj Subjective Interval history: Seen and examined. No overnight events. Doing better. Still reports poor PO intake and nausea. But not vomiting now. Jorgensen catheter placed as per urology with qasim pus noted by RN upon insertion. Exam Constitutional Vital Signs, click to edit/add: Last Vital Signs Temp 97.7 F 12/12/23 08:00 Pulse 72 12/12/23 09:50 Resp 16 12/12/23 08:00 BP 92/56 12/12/23 08:00 Pulse Ox 96 12/12/23 11:17 O2 Del Method Room Air 12/12/23 11:17 Documenting provider has reviewed patient's vital signs: yes Common normals: no apparent distress and oriented x3 General appearance: cooperative and frail appearing Respiratory Common normals: normal respiratory effort and clear to auscultation bilaterally Effort & inspection: able to speak in complete sentences Auscultation: clear to auscultation bilaterally Cardio Common normals: regular rate, S1 normal heart sound and S2 normal heart sound Rate: regular rate Heart sounds: S1 normal and S2 normal GI Common normals: Normal to inspection, nondistended, normoactive bowel sounds present, soft to palpation, non-tender and no hepatosplenomegaly Palpation: soft and no hepatosplenomegaly Extremity Common normals: no clubbing, cyanosis or edema Neuro Common normals: oriented x3, moves all extremities and no focal motor deficits Psych Common normals: mental status grossly normal, denies hallucinations, denies homicidal ideation and denies suicidal ideation Internal Medicine - PN: Obj Da Labs Labs: Laboratory Results - last 24 hr 12/12/23 07:05 WBC 7.0 RBC 4.24 L Hgb 14.1 Hct 41.8 L MCV 98.6 H MCH 33.3 MCHC 33.7 RDW 13.9 Plt Count 144 L MPV 10.3 Neut % (Auto) 68.9 Lymph % (Auto) 20.9 [place] % (Auto) 9.2 Eos % (Auto) 0.3 L Baso % (Auto) 0.3 Neut # (Auto) 4.8 Lymph # (Auto) 1.5 [place] # (Auto) 0.7 Eos # (Auto) 0.0 Baso # (Auto) 0.0 Abs Immat Gran (auto) 0.03 Imm/Tot Granulo (auto) 0.4 Sodium 137 Potassium 3.2 L Chloride 101 Carbon Dioxide 27.8 Anion Gap 11.4 BUN 20.0 H Creatinine 1.13 Est GFR ( Amer) >60 Est GFR (Non-Af Amer) >60 BUN/Creatinine Ratio 17.7 Glucose 100 Calcium 8.9 Total Bilirubin 1.0 AST 27 ALT 28 Alkaline Phosphatase 106 Total Protein 6.6 Albumin 2.6 L Globulin 4.0 Albumin/Globulin Ratio 0.7 Urinary Catheter Management Urinary Catheter Management Urethral: Cath placed during this visit: yes Urethral indwelling: No Insertion date: 12/11/23 Insertion time: 17:03
[2023-12-12] MEDS: POTASSIUM CHLORIDE 10 MEQ ER TABLET 40 MEQ PO (13:42)
--- NOTE | 2023-12-12 16:24 | P.CN_ITS ---
Consult Note: HPI Data of Consult Consult date: 12/12/23 Requesting Physician: Shaikh Alejandra MD Primary Care Provider: Non-Staff Physician, Consult Narrative Reason for consult: Left kidney stone, DEN, UTI Narrative: 78 year old male on Plavix for Afib, hx SC was brought to the ER by son for shortness of breath x 4 weeks and PO intolerance. Also notes difficulty voiding, dysuria and feeling of incomplete emptying. Workup in ER revealed tachycardia, UA concerning for UTI, lactate 4.4, hypokalemia and DEN Cr 1.68. COVID positive. CT AP w contrast notes chronic left hydronephrosis and 3.5 cm staghorn stone within renal pelvis. No overtly dilated ureter with distal periureteral stranding concerning for ascending infection. Bladder appears thickened with right diverticulum. He was started on levquin, received fluid and admitted to hospitalist. Urology consulted for further evaluation. Labs including lactate have now normalized. Pt remains on RA, O2 sats 94-91%. Pt actually denies shortness of breath, stating the heat makes it a little difficult to breath. Denies SOB with walking/activity or wheezing. About a month he has noted intermittent n/v and urinary difficulties without flank pain. Has not seen a urologist recently. No known hx of stones. Not on BPH meds. cc:: CC: Shaikh Alejandra MD Review of Systems ROS Status of ROS 10 or more systems reviewed and unremark able except as noted in history and below Constitutional Denies: fever or chills Ears, nose, mouth, and throat Denies: throat pain or difficulty swallowing Cardiovascular Denies: chest pain, shortness of breath with exertion or shortness of breath when lying down Respiratory Denies: shortness of breath or wheezing Gastrointestinal Reports: nausea and vomiting; Denies: abdominal pain Genitourinary Reports: painful urination and urinary urgency; Denies: blood in urine Musculoskeletal Denies: back pain or extremity pain Integumentary/Breast Denies: rash or itching Neurological Denies: headache or numbness in extremities Endocrine Denies: excessive urination or fatigue Hematologic/Lymphatic Reports: easy bruising and easy bleeding PFSH PFSH Medical History HLD (hyperlipidemia) ?E78.5 - Hyperlipidemia, unspecified (ICD-10) HTN (hypertension) ?I10 - Essential (primary) hypertension (ICD-10) Former smoker ?Z87.891 - Personal history of nicotine dependence (ICD-10) CAD (coronary artery disease) ?I25.10 - Atherosclerotic heart disease of [place] coronary artery without angina pectoris (ICD-10) Social History Within the past year, how often did you have a drink containing alcohol: never Within the past year, how many standard drinks containing alcohol did you have on a typical day: 1 or 2 Within the past year, how often did you have six or more drinks on one occasion: never Total score: 0 Score interpretation: A score less than 4 is consistent with normal alcohol consumption. Smoking status: Former smoker Non-prescribed substance use: denies use Highest level of school completed/degree received: GED or equivalent Gender Identity: male Meds Home Medications and Allergies Home Medications ?Medication ?Instructions ?Recorded ?Confirmed ?Type aspirin 81 mg tablet,delayed 81 mg PO DAILY 12/11/23 12/11/23 History release (Adult Aspirin Regimen) atorvastatin 80 mg tablet 80 mg PO DAILY 12/11/23 12/11/23 History clopidogrel 75 mg tablet (Plavix) 75 mg PO DAILY 12/11/23 12/11/23 History lisinopril 5 mg tablet 5 mg PO DAILY 12/11/23 12/11/23 History metoprolol succinate 100 mg 100 mg PO DAILY 12/11/23 12/11/23 History tablet,extended release 24 hr Allergies Allergy/AdvReac Type Severity Reaction Status Date / Time No Known Drug Allergies Allergy Verified 12/11/23 05:18 Exam Narrative Exam Narrative: No acute distress, appears nontoxic Nonlabored respirations, symmetric chest rise, on room air Able to speak in full sentences Normal rate and rhythm, no peripheral edema No abd tenderness to palpation, non distended No BL CVA tenderness to palpation, no suprapubic tenderness palpation 16Fr valencia catheter to gravity, concentrated orange urine in bag, cloudy sediment within catheter tubing. Moves all extremities, no deformities Alert and oriented x 4, no acute focal deficits Skin dry, intact Appropriate, cooperative, poor recall Constitutional Vital Signs, click to edit/add: Last Vital Signs Temp 97.7 F 12/12/23 12:00 Pulse 64 12/12/23 16:00 Resp 16 12/12/23 12:00 BP 138/84 12/12/23 12:00 Pulse Ox 96 12/12/23 15:49 O2 Del Method Room Air 12/12/23 15:49 Results Labs Labs: Short CBC 12/12/23 Range/Units 07:05 WBC 7.0 (4.0-11.0) 10^3/uL Hgb 14.1 (14.0-18.0) g/dL Hct 41.8 L (42.0-54.0) % Plt Count 144 L (150-450) 10^3/uL BMP 12/12/23 07:05 Sodium 137 Potassium 3.2 L Chloride 101 Carbon Dioxide 27.8 BUN 20.0 H Creatinine 1.13 Glucose 100 Calcium 8.9 Liver Function 12/12/23 Range/Units 07:05 Total Bilirubin 1.0 (0.2-1.0) mg/dL AST 27 (15-37) U/L ALT 28 (16-63) U/L Alkaline Phosphatase 106 (46-116) U/L Albumin 2.6 L (3.4-5.0) g/dL Additional Findings Additional findings: Patient Name: JUSTUS LOYOLA MRN: [id number] date: 1945 Sex: M Assigned Patient Location: ER Current Patient Location: Accession/Order Number: [id number] Exam Date: 12/11/2023 06:20 Report Date: 12/11/2023 06:59 At the request of: MARK STATON Procedure: CT abdomen pelvis w con EXAMINATION: CT abdomen pelvis w con HISTORY: vomiting COMPARISON: No relevant comparison available. TECHNIQUE: Axial, Coronal, and Sagittal images were obtained without and/or with IV contrast as indicated by examination type. Dose reduction techniques were achieved by using automated exposure control and/or adjustment of mA and/or kV according to patient size and/or use of iterative reconstruction technique. FINDINGS: LUNG BASES: No visible pulmonary or pleural disease. LIVER: No enlargement, atrophy, suspicious density, or significant focal lesion. BILIARY: No dilatation or calcification. PANCREAS: No lesion, fluid collection, or abnormal duct dilatation. SPLEEN: No enlargement or focal lesion. ADRENALS: No mass or enlargement. KIDNEYS: Chronic left hydronephrosis with large 3.5 cm staghorn calcification within the renal pelvis. No overtly dilated ureter with periureteral stranding/inflamed appearance of distal ureter which returns to normal caliber. No appreciable stone or mass within the ureter. Benign-appearing right renal cyst. BOWEL/MESENTERY: No visible mass, obstruction, or bowel wall thickening. AORTA/VASCULAR: No aneurysm or dissection. RETROPERITONEUM: No mass or adenopathy. LYMPH NODES: No adenopathy. URINARY BLADDER: Mild wall thickening and surrounding stranding. Small diverticulum projecting from right side. PELVIC ORGANS: No visible mass. Pelvic organs appropriate for patient age. ABDOMINAL WALL: Small fat filled left inguinal hernia. No strangulation. BONES: No bony lesion or fracture. OTHER: Negative. CT/CT abdomen pelvis w con IMPRESSION: 1. Suspect cystitis ascending into left ureter. 2. Large staghorn calcification within left kidney resulting in chronic hydronephrosis. Assessment and Plan Assessment and Plan (1) Sepsis: Qualifiers: Acute renal failure type: unspecified Sepsis acute organ dysfunction status: with acute organ dysfunction Sepsis type: sepsis due to unspecified organism Severe sepsis acute organ dysfunction type: acute renal failure Severe sepsis shock status: without septic shock Qualified Code(s): A41.9 - Sepsis, unspecified organism; R65.20 - Severe sepsis without septic shock; N17.9 - Acute kidney failure, unspecified (2) Staghorn calculus: (3) UTI (urinary tract infection): Qualifiers: Hematuria presence: without hematuria Urinary tract infection type: acute cystitis Qualified Code(s): N30.00 - Acute cystitis without hematuria (4) COVID-19: (5) DEN (acute kidney injury): (6) Incomplete bladder emptying: Plan 78 year old male with hx Afib/SC on Plavix is admitted with PO intolerance x 1 month and difficulty voiding who was found to meet sepsis criteria. COVID positive, pyocystitis and mild L hydroureteronephrosis noted with 3.5 cm renal pelvis stone. Upon review of imaging, large staghorn is not blocking UPJ. There appears to be hydroureteronephrosis, likely secondary to bladder wall thickening and cystitis/ureteritis. Valencia catheter placement was therefore ordered and qasim pus was drained, improving. Patient denies flank pain. Surgical intervention was initially delayed to allow patient to medically stabilize given COVID, hypokalemia and chronic staghorn that may not be contributing to hyd roureteronephrosis. Discussed risks/benefits of treatment options with patient, ultimate need for tertiary center referral for PCNL and risk of anesthesia with COVID. Patient is asymptomatic currently from stone and covid, however there is a risk of intermittent blockage with large stone. Pt elects to proceed with: -Renal US in AM. If hydronephrosis persists, will proceed with cystoscopy, L RP G, L stent placement if anesthesia deems patient acceptable risk. -If hydronephrosis resolved, no intervention this admission unless fevers or flank pain -Patient will be referred to [facility] for L PCNL evaluation given large stone and comorbidities -Start tamsulosin. Cont valencia x 1 week prior to voiding trial.
[2023-12-12] MEDS: TAMSULOSIN HCL 0.4 MG CAPSULE PO (20:11)
[2023-12-13] VITALS (15 sets, daily range): BP systolic 112–116; BP diastolic 62–74; PULSE 51–75; TEMP 36.6–36.7; O2SAT 91–96
[2023-12-13] MEDS: ALBUTEROL SULFATE 200 PUFF/6.7 GM INHALER IH ×4 (04:01→16:00)
[2023-12-13] MEDS: LACTATED RINGER'S SOLUTION 1,000 ML 125 ML IV ×2 (04:15→13:15)
[2023-12-13 06:28] LABS: Basophils Percent Auto 0.2 % (0.2-2.0); Eosinophils Percent Auto 0.3 % (0.9-7.0); Hematocrit 38.9 % (42.0-54.0); Hemoglobin 13.3 g/dL (14.0-18.0); Immature Granulocytes Abs Auto 0.03 10^3/uL (0.00-0.03); Immature Granulocytes Pct Auto 0.5 % (0.0-0.5); Lymphocytes Absolute Auto 1.1 10^3/uL (1.2-3.8); Lymphocytes Percent Auto 16.9 % (20.5-60.0); Mean Corpuscular HGB Conc 34.2 g/dL (29.9-35.2); Mean Corpuscular Hemoglobin 33.8 pg (25.9-34.0); Mean Platelet Volume 10.8 fL (9.5-13.5); Monocytes Absolute Auto 0.5 10^3/uL (0.3-0.8); Monocytes Percent Auto 7.6 % (1.7-12.0); Neutrophils Absolute Auto 4.9 10^3/uL (1.4-6.5); Neutrophils Percent Auto 74.5 % (43.0-75.0); Platelet Count 130 10^3/uL (150-450); Red Blood Count 3.93 10^6/uL (4.70-6.10); Red Cell Distribution Width 13.8 % (11.0-15.0); White Blood Count 6.6 10^3/uL (4.0-11.0)
[2023-12-13 06:30] LABS: Alanine Aminotransferase 31 U/L (16-63); Albumin Globulin Ratio 0.7; Albumin Level 2.4 g/dL (3.4-5.0); Alkaline Phosphatase 91 U/L (46-116); Aspartate Amino Transferase 30 U/L (15-37); BUN Creatinine Ratio 14.1; Bilirubin Total 0.6 mg/dL (0.2-1.0); Calcium 8.5 mg/dL (8.5-10.1); Chloride 105 mmol/L (98-107); Estimated GFR (African America >60 (>=60); Estimated GFR (Non-African Ame >60 (>=60); Globulin 3.5 g/dL; Glucose 105 mg/dL (74-106); Potassium 3.2 mmol/L (3.5-5.1); Sodium 140 mmol/L (136-145); Total Protein 5.9 g/dL (6.4-8.2)
[2023-12-13 06:36] LABS: Anion Gap 12.6; Carbon Dioxide 25.6 mmol/L (21.0-32.0)
--- NOTE | 2023-12-13 08:00 | US_ITS ---
[address] [address] Patient Name: JUSTUS LOYOLA MRN: [id number] date: 1945 Sex: M Assigned Patient Location: MS Current Patient Location: MS Accession/Order Number: [id number] Exam Date: 12/13/2023 08:10 Report Date: 12/13/2023 10:01 At the request of: NASIMA YIP Procedure: US renal BI EXAMINATION: US renal BI HISTORY: eval L hydronephrosis COMPARISON: No relevant comparison available. TECHNIQUE: Ultrasound examination was performed of the bladder. FINDINGS: Right Kidney: Normal in size, contour and echotexture. The cortex measures 0.8 cm. 2.9 cm area of anechoic echogenicity in the lower pole, simple cyst Height: 5.76 cm Length: 10.07 cm Width: 5.33 cm Left Kidney: Normal in size, contour and echotexture. The cortex measures 1.0 cm. 2.3 cm echogenic focus midpole. No solid cortical mass. Moderate hydronephrosis Height: 7.03 cm Length: 11.23 cm Width: 5.48 cm Urinary bladder is minimally distended with a volume of 7.8 mL. US/US renal BI IMPRESSION: Moderate left hydronephrosis with 2.3 cm nephrolith Bilateral renal cortical atrophy Electronically authenticated by: LAURA ARITA Date: 12/13/2023 10:01
--- NOTE | 2023-12-13 09:40 | REH.PTDLY ---
Physical Therapy Daily Note PT Daily Note/Assess Start: 12/12/23 10:50 Freq: Status: Active Protocol: [facility]13[facility]23 09:29 [facility] (Rec: 12/13/23 09:40 [id number]) Physical Therapy Daily Note/Assessment Time In 09:12 Time Out 09:24 Subjective Pt NPO as he had US of kidneys this morning. Pt willing to do PT Therapeutic Exercise Minutes (minutes) 5 Therapeutic Exercise Units 0 Therapeutic Exercise Treatment Instructed in seated exs unsupported bedside 15x ea with B LE HR, LAQ, marching, and hip abd for strength. Therapeutic Activity Minutes (minutes) 6 Therapeutic Activity Units 1 Therapeutic Activity Comments Sit to stand transfers Min A. Gait training with IV pole, catheter, and [employer] 40 feet in room. Pt cautious as he ambulates. Pt returns to sit in recliner with good safety awareness. Pt hesitant to do too much as he reports yesterday 'when I got up I ended up having an accident that ended up being a mess.' Total Therapy Minutes 11 Total Physical Therapy Units 1 Daily Note Summary Progressed gait distance today and exs compared to yesterday . No complaints of pain or discomfort. Mild fatigue.
--- NOTE | 2023-12-13 09:55 | PC.NURSE ---
Automation Control Technician called radiology and asked for renal ultrasound to be read AURA so Dr Wang can make decision on if patient needs surgery today
--- NOTE | 2023-12-13 10:45 | CM.NOTE ---
Rounds made with Dr. Roberts. Dr. Roberts discussed plan of care with Neptali and currently awaiting renal US results to determine what urology will do. Depending on renal US and potential OR , Edluis armando may be discharged later today. Neptali verbalized understanding.
[2023-12-13] MEDS: CEFTRIAXONE 1,000 MG in 0.9 % SODIUM CHLORIDE 50 ML 100 MG IV (10:49)
--- NOTE | 2023-12-13 12:27 | P.PN_ITS ---
Progress Note: Subjective Subjective Interval history: Seen and examined. No overnight events. Doing better. Still reports poor PO intake and nausea. But not vomiting now. Valencia catheter placed as per urology with qasim pus noted by RN upon insertion. Exam Constitutional Vital Signs, click to edit/add: Last Vital Signs Temp 98.0 F 12/13/23 08:12 Pulse 59 L 12/13/23 12:00 Resp 16 12/13/23 10:36 BP 112/73 12/13/23 08:12 Pulse Ox 95 12/13/23 10:36 O2 Del Method Room Air 12/13/23 10:36 Progress Note: Objective Labs Labs: Short CBC 12/13/23 Range/Units 05:48 WBC 6.6 (4.0-11.0) 10^3/uL Hgb 13.3 L (14.0-18.0) g/dL Hct 38.9 L (42.0-54.0) % Plt Count 130 L (150-450) 10^3/uL BMP 12/13/23 05:48 Sodium 140 Potassium 3.2 L Chloride 105 Carbon Dioxide 25.6 BUN 13.0 Creatinine 0.92 Glucose 105 Calcium 8.5 Liver Function 12/13/23 Range/Units 05:48 Total Bilirubin 0.6 (0.2-1.0) mg/dL AST 30 (15-37) U/L ALT 31 (16-63) U/L Alkaline Phosphatase 91 (46-116) U/L Albumin 2.4 L (3.4-5.0) g/dL Progress Note: A&P Assessment and Plan (1) Sepsis: Qualifiers: Sepsis type: sepsis due to unspecified organism Sepsis acute organ dysfunction status: with acute organ dysfunction Severe sepsis acute organ dysfunction type: acute renal failure Acute renal failure type: unspecified Severe sepsis shock status: without septic shock Qualified Code(s): A41.9 - Sepsis, unspecified organism; R65.20 - Severe sepsis without septic shock; N17.9 - Acute kidney failure, unspecified (2) Staghorn calculus: (3) UTI (urinary tract infection): Qualifiers: Urinary tract infection type: acute cystitis Hematuria presence: without hematuria Qualified Code(s): N30.00 - Acute cystitis without hematuria (4) COVID-19: (5) DEN (acute kidney injury): (6) Incomplete bladder emptying: Plan Patient remains asymptomatic from L staghorn calculus. Renal US still with moder ate hydronephrosis, Cr has returned to normal. Afebrile VSS. Due to abnormal EKG and cardiac history in setting of clinically stable pt, anesthesia recommends cardiac evaluation prior to surgery. Ultimately, patient will require referral to tertiary center for L PCNL. Given pt clinically stable, he may follow up with Angela (pt preference) for evaluation of L PCNL and need higher level care given comorbidities and large stone size. -If pt develops fever, chills, uncontrolled pain then he may be stented on an urgent basis. -Continue valencia given severity of bladder infection. Cont tamsulosin at home. Voiding trial in 2 weeks after starting tamsulosin Urinary Catheter Management Urinary Catheter Management Urethral: Cath placed during this visit: yes Urethral indwelling: No Insertion date: 12/11/23 Insertion time: 17:03
--- NOTE | 2023-12-13 12:45 | PC.NURSE ---
Tuck Pointer got a call from PACU stating surgery has been cancelled and patient needs cardiac work up. Tuck Pointer informed Dr Roberts. He asked what this cardiac work up entailed and Dr Pizarro states he wants trops, echo and cardiology consult for clearance. Dr Roberts then asked if urology could do this procedure outpatient and if not, he will order cardio consult. Tuck Pointer then called Dr Wang and she asked to just speak directly with Dr Roberts.
--- NOTE | 2023-12-13 12:50 | ECG_ITS ---
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
[2023-12-13] MEDS: DEXAMETHASONE 4 MG TABLET 6 MG PO (13:04)
[2023-12-13] MEDS: ATORVASTATIN CALCIUM 40 MG TABLET 80 MG PO (13:04)
[2023-12-13] MEDS: METOPROLOL SUCCINATE 100 MG TAB.ER.24H PO (13:04)
[2023-12-13] MEDS: CLOPIDOGREL BISULFATE 75 MG TABLET PO (13:05)
[2023-12-13] MEDS: ASPIRIN 81 MG TABLET.DR PO (13:05)
[2023-12-13] MEDS: TAMSULOSIN HCL 0.4 MG CAPSULE PO (13:05)
[2023-12-13] MEDS: POTASSIUM CHLORIDE 10 MEQ ER TABLET 40 MEQ PO (13:09)
[2023-12-13] MEDS: ONDANSETRON PF 4 MG/2 ML VIAL IV (13:42)
--- NOTE | 2023-12-13 14:32 | P.DS_ITS ---
DS: Providers Provider Date of admission: 12/11/23 11:00 Primary care physician: Non-Staff PhysicianMD Admitting clinician: Shaikh Alejandra Attending physician on admission: Shaikh Alejandra Consults: 12/11/23 07:52 Occupational Therapy Eval and Treat Routine Reason for consultation: Ambulatory dysfunction/weakness Physical Therapy Eval and Treat Routine Reason for consultation: Ambulatory dysfunction/weakness 12/11/23 11:03 Consult to Urology Routine Consulting Provider: Td Gambino Reason for consultation: Staghorn calculus, cystitis Attending physician on discharge: Shaikh Alejandra Discharging clinician: Shaikh Alejandra Anticipated date of discharge: 12/13/23 DS: Diagnosis Discharge Diagnosis (1) Sepsis: Assessment and plan: Resolved. Hemodynamically stable. Medically stable for discharge on oral Abx. Qualifiers: Sepsis type: sepsis due to unspecified organism Sepsis acute organ dysfunction status: with acute organ dysfunction Severe sepsis acute organ dysfunction type: acute renal failure Acute renal failure type: unspecified Severe sepsis shock status: without septic shock Qualified Code(s): A41.9 - S epsis, unspecified organism; R65.20 - Severe sepsis without septic shock; N17.9 - Acute kidney failure, unspecified (2) Staghorn calculus: Assessment and plan: Will need f/u as outpatient with Urology. (3) UTI (urinary tract infection): Assessment and plan: due to urinary catheter/staghorn calculus. Stable for discharge on oral Abx. Qualifiers: Urinary tract infection type: acute cystitis Hematuria presence: without hematuria Qualified Code(s): N30.00 - Acute cystitis without hematuria (4) COVID-19: Assessment and plan: Asymptomatic now and has no resp symptoms. Will d/c. No need for oral steroids. (5) DEN (acute kidney injury): Assessment and plan: Resolved. (6) HTN (hypertension): Assessment and plan: Stable BP. C/w home medications Qualifiers: Hypertension type: primary hypertension Qualified Code(s): I10 - Essential (primary) hypertension (7) HLD (hyperlipidemia): Assessment and plan: C/w ASA, plavix. Qualifiers: Hyperlipidemia type: unspecified Qualified Code(s): E78.5 - Hyperlipidemia, unspecified (8) CAD (coronary artery disease): Assessment and plan: Abnormal EKG on admission, non specific ischemic changes on admission, resolved on subseuent EKG. No evidence of active cardiac ischemia. Will recommend outpatient eval by Cardiology and ischemic work up if needed. Medical management for now and c/w ASA, plavix, statin Qualifiers: Coronary Disease-Associated Artery/Lesion type: [place] artery [place] vs. transplanted heart: [place] heart Associated angina: without angina Qualified Code(s): I25.10 - Atherosclerotic heart disease of [place] coronary artery without angina pectoris DS: Summary Hospital Course Hospital Course: 78 y o male reports nausea, vomiting, loss of appetite x 3 weeks. Work up in ED revealed COVID -19 infection, DEN. Patient was started on IVF and IV abx. He showed clinical improvement during the course of admission and was feeling better subjectively. Urology was consulted for left staghorn calculus and hydroureter but it was felt to be chronic and outpatient f/u was recommended for him. Patient is stable for discharge on oral abx. He was informed that he should return to ED in case of pain,fever, hematuria or any other concerning symptoms. Status at Discharge Functional status at discharge: independent ambulation Overall status at discharge: patient is back to baseline Time Spent with Patient Time attestation: Total time spent providing and/or coordinating discharge services: Exam Constitutional Vital Signs, click to edit/add: Last Vital Signs Temp 97.9 F 12/13/23 13:16 Pulse 75 12/13/23 13:52 Resp 18 12/13/23 13:16 BP 116/74 12/13/23 13:16 Pulse Ox 96 12/13/23 13:16 O2 Del Method Room Air 12/13/23 13:16 Documenting provider has reviewed patient's vital signs: yes Common normals: no apparent distress and oriented x3 General appearance: cooperative and frail appearing Respiratory Common normals: normal respiratory effort and clear to auscultation bilaterally Effort & inspection: able to speak in complete sentences Auscultation: clear to auscultation bilaterally Cardio Common normals: regular rate, S1 normal heart sound and S2 normal heart sound Rate: regular rate Heart sounds: S1 normal and S2 normal GI Common normals: Normal to inspection, nondistended, normoactive bowel sounds present, soft to palpation, non-tender and no hepatosplenomegaly Palpation: soft and no hepatosplenomegaly Extremity Common normals: no clubbing, cyanosis or edema Neuro Common normals: oriented x3, moves all extremities and no focal motor deficits Psych Common normals: mental status grossly normal, denies hallucinations, denies homicidal ideation and denies suicidal ideation DS: Data Data Completed and Pending Labs on day of discharge: Labs from last 24 hours 12/13/23 05:48 WBC 6.6 RBC 3.93 L Hgb 13.3 L Hct 38.9 L MCV 99.0 H MCH 33.8 MCHC 34.2 RDW 13.8 Plt Count 130 L MPV 10.8 Neut % (Auto) 74.5 Lymph % (Auto) 16.[address] [place] % (Auto) 7.6 Eos % (Auto) 0.3 L Baso % (Auto) 0.2 Neut # (Auto) 4.9 Lymph # (Auto) 1.[address] # (Auto) 0.5 Eos # (Auto) 0.0 Baso # (Auto) 0.0 Abs Immat Gran (auto) 0.03 Imm/Tot Granulo (auto) 0.5 Sodium 140 Potassium 3.2 L Chloride 105 Carbon Dioxide 25.6 Anion Gap 12.6 BUN 13.0 Creatinine 0.92 Est GFR ( Amer) >60 Est GFR (Non-Af Amer) >60 BUN/Creatinine Ratio 14.1 Glucose 105 Calcium 8.5 Total Bilirubin 0.6 AST 30 ALT 31 Alkaline Phosphatase 91 Total Protein 5.9 L Albumin 2.4 L Globulin 3.5 Albumin/Globulin Ratio 0.7 Preliminary micro results at discharge 12/11/23 07:17 Urine Culture - Preliminary Urine,Clean Catch Discharge Plan Discharge Disposition: Home, Self-Care Discharge Medications: New cefuroxime axetil 500 mg tablet 500 mg PO BID 10 Days Qty: 20 0RF Continued lisinopril 5 mg tablet 5 mg PO DAILY metoprolol succinate 100 mg tablet extended release 24 hr 100 mg PO DAILY clopidogrel [Plavix] 75 mg tablet 75 mg PO DAILY atorvastatin 80 mg tablet 80 mg PO DAILY aspirin [Adult Aspirin Regimen] 81 mg tablet,delayed release (DR/EC) 81 mg PO DAILY Activity: increase activity as tolerated Diet: advance to your usual diet Print Language: Malawian Forms: Portal Instructions Follow Up Appointments: Follow up with PCP in one week F/u with Cardiology in 2-3 weeks F/u with Urology in 2-3 weeks
--- NOTE | 2023-12-14 08:40 | PC.NURSE ---
Lab results faxed to Med Surg. Patient admitted to Med surg and was discharged on 12/11/23.
--- NOTE | 2023-12-14 13:38 | CM.DCFOLLOWU ---
Person spoke with: patient How are you feeling? well How is your pain? none Did you understand your discharge instructions? yes, advised pt that he needs to continue to look for a PCP Do you have any questions about your discharge instructions? no Were you given any prescriptions at discharge? yes Were you able to get your prescriptions filled? yes Do you understand how to take your medications as ordered? yes Do you have any questions about your follow up appointment and do you plan to keep your follow up appointment? No questions, reviewed follow ups. Advised pt that he needs to contact his son to make sure he has a ride to appointment Is there anything else that you would like to discuss? no Questions/Comments/Concerns/Other: none
== END 2023-12-13 17:24 | disposition home or self-care (01) | DRG 871 ==
LOC: ER 08:32 → MS 08:56
PROVIDERS: Internal Medicine; Admitting Provider Internal Medicine; Emergency Provider Emergency Medicine Emergency Medical Services; Visit Provider Internal Medicine
DX: A41.81 Sepsis due to Enterococcus (principal); U07.1 COVID-19; N17.9 Acute kidney failure, unspecified; N13.6 Pyonephrosis; A41.89 Other specified sepsis; R65.20 Severe sepsis without septic shock; E86.0 Dehydration; R11.2 Nausea with vomiting, unspecified; E78.5 Hyperlipidemia, unspecified; I10 Essential (primary) hypertension; I25.10 Atherosclerotic heart disease of native coronary artery without angina pectoris; E87.6 Hypokalemia; N32.3 Diverticulum of bladder; I48.91 Unspecified atrial fibrillation; R33.9 Retention of urine, unspecified; I25.2 Old myocardial infarction; Z79.82 Long term (current) use of aspirin; Z79.02 Long term (current) use of antithrombotics/antiplatelets; Z79.899 Other long term (current) drug therapy; Z87.891 Personal history of nicotine dependence
CPT/HCPCS: 36415; 51702; 71045; 74177; 76775; 80053; 81001; 83605; 83880; 84484; 85025; 85378; 87040; 87070; 87086; 87150; 87186; 87811; 93005; 94640; 94667; 94668; 94761; 96361; 96365; 96366; 96367; 96368; 96375; 96376; 97110; 97161; 97165; 97530; 97535; 99285; J0696; J2405; J3480; J8540; Q9966

== ENCOUNTER 2024-04-03 15:26 | Outpatient (OUT) | payer MEDICARE, SELFPAY ==
--- OUTSIDE RECORDS SUMMARY | 2024-04-03 15:31 | XMS_ITS | CCD ---
Author Organization [facility] Care Team Providers Care Independent Producer Name Role Phone JAD MITCHELL Primary Care Physician [phone] Nova Wang Attending Unavailable ZAYDA LEUNG Attending Unavailable Nova Wang Referring Unavailable Nova Wang Attending Unavailable Nova Wang Attending Unavailable Nova Wang Referring Unavailable Nova Wang Attending Unavailable EKWENNA, KIERAN O Referring Unavailable MIGUEL GARCIA Primary Care Unavailable MELISSA DAVIS Referring Unavailable PRADEEP, ABE Referring Unavailable PRADEEP, ABE Admitting Unavailable SAILAJA YOUNGBLOOD Attending Unavailable LEONID RAMIREZ Attending Unavailable PRADEEP, ABE Referring Unavailable EKWENNA, OBI Referring Unavailable PRADEEP, ABE Referring Unavailable PRADEEP, ABE Referring Unavailable PRADEEP, ABE Referring Unavailable CORYTYREE Mercer Referring Unavailable PRADEEP, ABE Referring Unavailable PRADEEP, ABE Referring Unavailable PRADEEP, ABE Referring Unavailable PRADEEP, ABE Referring Unavailable RANDOLPH PROCTOR Attending Unavailable RANDOLPH PROCTOR Attending Unavailable EKWENNA, OBI Attending Unavailable PRADEEP, ABE Referring Unavailable EKWENNA, OBI Referring Unavailable EKWENNA, OBI Referring Unavailable RADIOLOGY, RADIOLOGIST Attending Unavailab le EKWENNA, OBI Referring Unavailable Problems Problem Classification Problem Date Documented Date Episodic/Chronic Calculus of urinary tract (2 sources) Calculus of kidney; Translations: [Calculus of kidney] Onset: 02-14-2024 Episodic Cardiac arrest and ventricular fibrillation (4 sources) Cardiac arrest, cause unspecified; Translations: [Ventricular fibrillation] Onset: 02-26-2024 Chronic Cardiac dysrhythmias (6 sources) Paroxysmal atrial fibrillation; Translations: [Cardiac arrhythmia, unspecified] Onset: 01-10-2024 Chronic Chronic obstructive pulmonary disease and bronchiectasis (2 sources) Mixed simple and mucopurulent chronic bronchitis; Translations: [Mixed simple and mucopurulent chronic bronchitis] Onset: 02-26-2024 Chronic Conduction disorders (2 sources) Presence of automatic (implantable) cardiac defibrillator; Translations: [Presence of automatic (implantable) cardiac defibrillator] Onset: 03-13-2024 Chronic Congestive heart failure; nonhypertensive (4 sources) Chronic systolic (congestive) heart failure; Translations: [Acute systolic (congestive) heart failure] Onset: 02-26-2024 Chronic Coronary atherosclerosis and other heart disease (7 sources) Atherosclerotic heart disease of [place] coronary artery without angina pectoris; 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] Onset: 06-08-2022 Chronic Disorders of lipid metabolism (2 sources) Pure hypercholesterolemia, unspecified; Translations: [Pure hypercholesterolemia, unspecified] Onset: 03-13-2024 Chronic Essential hypertension (2 sources) Essential (primary) hypertension; Translations: [Essential (primary) hypertension] Onset: 06-08-2022 Chronic Genitourinary symptoms and ill-defined conditions (1 source) Retention of urine; Translations: [Retention of urine, unspecified] Onset: 12-26-2023 Episodic Hypertension with complications and secondary hypertension (4 sources) Hypertensive heart disease with heart failure; Translations: [Hypertensive heart disease without heart failure] Onset: 05-25-2023 Chronic Unclassified (2 sources) Nephrolithiasis; Translations: [Nephrolithiasis] Onset: 02-09-2024 Results Test Name Value Interpretation Reference Range Facility 30on 03-06-2024 30 Normal [facility] 30 Normal [facility] 30 Normal [facility] BASIC METABOLIC PANELon 02-13 Anion gap [Moles/Vol] 7 mmol/L Normal - [facility] Comment on above: Performed By: #### L [id number] ####[facility] (BEAKER)[address] [place] [address] Calcium [Mass/Vol] 8.4 mg/dL Low 8.6-10.3 [facility] Comment on above: Performed By: #### L [id number] ####[facility] (BEAKER)[address] [place] [address] Chloride [Moles/Vol] 105 mmol/L Normal 98-107 [facility] Comment on above: Performed By: #### L [id number] ####[facility] (BEAKER)[address] [place] [address] CO2 [Moles/Vol] 32 mmol/L High 21-[address] [facility] Comment on above: Performed By: #### L [id number] ####[facility] (BEAKER)[address] [place] [address] Creatinine [Mass/Vol] 0.95 mg/dL Normal 0.70-1.30 [facility] Comment on above: Performed By: #### L [id number] ####[facility] ([facility])[address] [place] [address] GLOMERULAR FILTRATION RATE ML/MIN/1.73 SQ M.PREDICTED 81.9 mL/min/1.73m*2 Normal >60.0 [facility] Comment on above: Result Comment: The [facility]???s estimated glomerular filtration rate (eGFR) will no longer include consideration of race in its calculation. The National Kidney Foundation???s eGFR Task Force developed new recommendations for the estimation of the glomerular filtration rate in the [place] They recommend immediate implementation of the new equation refit without the race variable in all laboratories because the calculation does not include race. In addition to not including race in the calculation and reporting, it included diversity in its development, and has acceptable performance characteristics and potential consequences that do not disproportionately affect any one group of individuals. Performed By: #### L [id number] ####[facility] ([facility])[address] [place] [address] Glucose [Mass/Vol] 90 mg/dL Normal 70-100 [facility] Comment on above: Performed By: #### L [id number] ####[facility] (BEAKER)[address] [place] [address] Potassium [Moles/Vol] 3.8 mmol/L Normal 3.5-5.1 [facility] Comment on above: Performed By: #### L [id number] ####[facility] ([facility])[address] [place] [address] Sodium [Moles/Vol] 140 mmol/L Normal 136-145 [facility] Comment on above: Performed By: #### L [id number] ####[facility] ([facility])[address] [place] [address] Urea nitrogen [Mass/Vol] 21 mg/dL Normal 7-25 [facility] Comment on above: Performed By: #### L [id number] ####[facility] ([facility])[address] [place] [address] UREA NITROGEN/CREATININE (MASS RATIO) IN SER/PLAS 22.1 Normal [facility] Comment on above: Performed By: #### L [id number] ####[facility] ([facility])[address] [place] [address] CBCon 03-06-2024 Erythrocyte distribution width (RBC) [Ratio] 13.3 % Normal 11.5-15.0 [facility] Comment on above: Performed By: #### L [id number] ####[facility] ([facility])[address] [place] [address] ERYTHROCYTE MEAN CORPUSCULAR HEMOGLOBIN CONCENTRATION (G/DL) BY AUTOMATED 31.9 g/dL Low 32.0-35.0 [facility] Comment on above: Performed By: #### L [id number] ####[facility] ([facility])[address] [place] [address] Hematocrit (Bld) [Volume fraction] 38.3 % Low 39.0-55.0 [facility] Comment on above: Performed By: #### L [id number] ####[facility] ([facility])[address] [place] [address] Hemoglobin (Bld) [Mass/Vol] 12.2 g/dL Low 13.0-17.0 [facility] Comment on above: Performed By: #### L [id number] ####[facility] ([facility])[address] [facility] [address] MCH (RBC) [Entitic mass] 31.9 pg Normal 27.0-33.0 [facility] Comment on above: Performed By: #### L [id number] ####[facility] ([facility])[address] [place] [address] MCV (RBC) [Entitic vol] 100.3 fL High 82.0-98.0 [facility] Comment on above: Performed By: #### L [id number] ####[facility] ([facility])[address] [place] [address] PLATELETS (10*3/UL) IN BLOOD AUTOMATED COUNT 196 10*3/uL Normal 150-400 [facility] Comment on above: Performed By: #### L [id number] ####[facility] ([facility])[address] [facility] [place] [address] RBC (Bld) [#/Vol] 3.82 10*6/uL Low 4.20-5.70 [facility] Comment on above: Performed By: #### L [id number] ####[facility] ([facility])[address] [facility] [place] [address] WBC (Bld) [#/Vol] 7.67 10*3/uL Normal 4.00-10.60 [facility] Comment on above: Performed By: #### L [id number] ####[facility] ([facility])[address] [place] [address] CONSULTon 03-06-2024 CONSULT Normal [facility] DSon 03-06-2024 DS Normal [facility] NURSNOTEon 03-06-2024 NURSNOTE This RN called and gave report to Receiving nurse at [place]. Nurse denied further questions. Report given to Transport bedside. Transport has discharge packet. Normal [facility] PRO-BNPon 03-06-2024 Natriuretic peptide B (Bld) [Mass/Vol] 800 pg/mL High 0-300 [facility] Comment on above: Result Comment: An a ge-independent cutoff point of 300 pg/ml has a 98% negative predictive value excluding acute heart failure.Test Performed by [employer] [address] [place] [address] - Released 03/06/2024 15:37 Performed By: #### L [id number] ####[facility] [id number] [place] [address] 30on 03-05-2024 30 Normal [facility] 30 Normal [facility] 30 Normal [facility] BASIC METABOLIC PANELon 02-13 Anion gap [Moles/Vol] 9 mmol/L Normal 7-20 [facility] Comment on above: Performed By: #### L [id number] ####[facility] (BEAKER)[address] [place] [address] Calcium [Mass/Vol] 8.4 mg/dL Low 8.6-10.3 [facility] Comment on above: Performed By: #### L [id number] ####[facility] ([facility])[address] [place] [address] Chloride [Moles/Vol] 104 mmol/L Normal 98-107 [facility] Comment on above: Performed By: #### L [id number] ####[facility] ([facility])[address] [place] [address] CO2 [Moles/Vol] 33 mmol/L High 21-[address] [facility] Comment on above: Performed By: #### L [id number] ####[facility] ([facility])[address] [place] [address] Creatinine [Mass/Vol] 1.02 mg/dL Normal 0.70-1.30 [facility] Comment on above: Performed By: #### L [id number] ####[facility] ([facility])[address] [place] [address] GLOMERULAR FILTRATION RATE ML/MIN/1.73 SQ M.PREDICTED 75.2 mL/min/1.73m*2 Normal >60.0 [facility] Comment on above: Result Comment: The [facility]???s estimated glomerular filtration rate (eGFR) will no longer include consideration of race in its calculation. The National Kidney Foundation???s eGFR Task Force developed new recommendations for the estimation of the glomerular filtration rate in the [place] They recommend immediate implementation of the new equation refit without the race variable in all laboratories because the calculation does not include race. In addition to not including race in the calculation and reporting, it included diversity in its development, and has acceptable performance characteristics and potential consequences that do not disproportionately affect any one group of individuals. Performed By: #### L [id number] ####[facility] ([facility])[address] [place] [address] Glucose [Mass/Vol] 88 mg/dL Normal 70-100 [facility] Comment on above: Performed By: #### L [id number] ####[facility] ([facility])[address] [place] [address] Potassium [Moles/Vol] 3.8 mmol/L Normal 3.5-5.1 [facility] Comment on above: Performed By: #### L [id number] ####[facility] ([facility])[address] [place] [address] Sodium [Moles/Vol] 142 mmol/L Normal 136-145 [facility] Comment on above: Performed By: #### L [id number] ####[facility] (BEAKER)[address] [place] [address] Urea nitrogen [Mass/Vol] 25 mg/dL Normal 7-25 [facility] Comment on above: Performed By: #### L [id number] ####[facility] (BEAKER)[address] [place] [address] UREA NITROGEN/CREATININE (MASS RATIO) IN SER/PLAS 24.5 Normal [facility] Comment on above: Performed By: #### L [id number] ####[facility] (BEAKER)[address] [place] [address] CBC WITH AUTO DIFFERENTIALon 03-05-2024 Basophils (Bld) [#/Vol] 0.01 10*3/uL Normal 0.00-0.20 [facility] Comment on above: Performed By: #### L [id number] ####[facility] ([facility]ER)[address] [place] [address] Basophils/100 WBC (Bld) 0.1 % Normal 0.0-1.0 [facility] Comment on above: Performed By: #### L [id number] ####[facility] (BEAKER)[address] [place] [address] Eosinophils (Bld) [#/Vol] 0.08 10*3/uL Normal 0.00-0.50 [facility] Comment on above: Performed By: #### L [id number] ####[facility] (BEAKER)[address] [place] [address] Eosinophils/100 WBC (Bld) 1.0 % Normal 0.0-6.0 [facility] Comment on above: Performed By: #### L [id number] ####[facility] (BEAKER)[address] [place] [address] Erythrocyte distribution width (RBC) [Ratio] 13.2 % Normal 11.5-15.0 [facility] Comment on above: Performed By: #### L [id number] ####[facility] (BEAKER)[address] [place] [address] ERYTHROCYTE MEAN CORPUSCULAR HEMOGLOBIN CONCENTRATION (G/DL) BY AUTOMATED 32.3 g/dL Normal 32.0-35.0 [facility] Comment on above: Performed By: #### L [id number] ####[facility] (BEAKER)[address] [place] [address] Hematocrit (Bld) [Volume fraction] 37.5 % Low 39.0-55.0 [facility] Comment on above: Performed By: #### L [id number] ####[facility] (BEAKER)[address] [place] [address] Hemoglobin (Bld) [Mass/Vol] 12.1 g/dL Low 13.0-17.0 [facility] Comment on above: Performed By: #### L [id number] ####[facility] (BEAKER)[address] [place] [address] Immature granulocytes (Bld) [#/Vol] 0.09 10*3/uL Normal 0.00-0.20 [facility] Comment on above: Performed By: #### L [id number] ####[facility] ([facility])[address] [place] [address] Immature granulocytes/100 WBC (Bld) 1.1 % High 0.0-1.0 [facility] Comment on above: Performed By: #### L [id number] ####[facility] ([facility])[address] [place] [address] Lymphocytes (Bld) [#/Vol] 1.27 10*3/uL Normal 1.20-4.00 [facility] Comment on above: Performed By: #### L [id number] ####[facility] ([facility])[address] [place] [address] Lymphocytes/100 WBC (Bld) 15.4 % Low 20.0-45.0 [facility] Comment on above: Performed By: #### L [id number] ####[facility] ([facility])[address] [place] [address] MCH (RBC) [Entitic mass] 31.6 pg Normal 27.0-33.0 [facility] Comment on above: Performed By: #### L [id number] ####[facility] ([facility])[address] [place] [address] MCV (RBC) [Entitic vol] 97.9 fL Normal 82.0-98.0 [facility] Comment on above: Performed By: #### L [id number] ####[facility] (BEAKER)[address] [place] [address] Monocytes (Bld) [#/Vol] 0.65 10*3/uL Normal 0.10-1.00 [facility] Comment on above: Performed By: #### L [id number] ####[facility] (BEAKER)[address] [place] [address] Monocytes/100 WBC (Bld) 7.9 % Normal 5.0-12.0 [facility] Comment on above: Performed By: #### L [id number] ####[facility] (BEAKER)[address] [place] [address] Neutrophils (Bld) [#/Vol] 6.14 10*3/uL Normal 1.60-7.60 [facility] Comment on above: Performed By: #### L [id number] ####[facility] (BEAKER)[address] [place] [address] Neutrophils/100 WBC (Bld) 74.5 % High 40.0-72.0 [facility] Comment on above: Performed By: #### L [id number] ####[facility] ([facility])[address] [place] [address] NRBC (PER 100 WBCS) BY AUTOMATED COUNT 0.0 % Normal 0 [facility] Comment on above: Performed By: #### L [id number] ####[facility] (BEAKER)[address] [place] [address] PLATELETS (10*3/UL) IN BLOOD AUTOMATED COUNT 190 10*3/uL Normal 150-400 [facility] Comment on above: Performed By: #### L [id number] ####[facility] (BEAKER)[address] [place] [address] RBC (Bld) [#/Vol] 3.83 10*6/uL Low 4.20-5.70 [facility] Comment on above: Performed By: #### L [id number] ####[facility] (BEAKER)[address] [place] [address] WBC (Bld) [#/Vol] 8.24 10*3/uL Normal 4.00-10.60 [facility] Comment on above: Performed By: #### L [id number] ####[facility] (BEAKER)[address] [place] [address] MAGNESIUMon 03-05-2024 Magnesium [Mass/Vol] 1.8 mg/dL Low 1.9-2.7 [facility] Comment on above: Performed By: #### L [id number] ####[facility] ([facility])[address] [place] [address] PHOSPHORUSon 03-05-2024 Magnesium [Mass/Vol] 3.8 mg/dL Normal 2.5-5.0 [facility] Comment on above: Performed By: #### L [id number] ####[facility] ([facility])[address] [place] [address] 30on 03-04-2024 30 Normal [facility] 30 The patient is Moderately Stable - Low risk of patient condition declining or worsening The patient's goals for the shift include Rest The clinical goals for the shift include VSS, safety, rest Normal [facility] ANESon 03-04-2024 ANES Normal [facility] APTTon 03-04-2024 ACTIVATED PARTIAL THROMBOPLASTIN TIME IN PPP BY COAGULATION ASSAY 110.7 Seconds High 25.0-35.0 [facility] Comment on above: Result Comment: Clin ical significance of the APTT is questionable in the presence of heparin. Performed By: #### L [id number] ####[facility] ([facility])[address] [place] [address] ACTIVATED PARTIAL THROMBOPLASTIN TIME IN PPP BY COAGULATION ASSAY 135.9 Seconds Critically high 25.0-35.0 [facility] Comment on above: Result Comment: Clin ical significance of the APTT is questionable in the presence of heparin. Performed By: #### L [id number] ####[facility] ([facility])[address] [place] [address] B-TYPE NATRIURETIC PEPTIDEon 03-04-2024 Natriuretic peptide B (Bld) [Mass/Vol] 178 pg/mL High 0-100 [facility] Comment on above: Performed By: #### L [id number] ####[facility] ([facility])[address] [place] [address] BASIC METABOLIC PANELon 10-2 Anion gap [Moles/Vol] 11 mmol/L Normal 7-20 [facility] Comment on above: Performed By: #### L [id number] ####[facility] (BEAKER)[address] [place] [address] Calcium [Mass/Vol] 8.5 mg/dL Low 8.6-10.3 [facility] Comment on above: Performed By: #### L [id number] ####[facility] ([facility])[address] [place] [address] Chloride [Moles/Vol] 104 mmol/L Normal 98-107 [facility] Comment on above: Performed By: #### L [id number] ####[facility] ([facility])[address] [place] [address] CO2 [Moles/Vol] 29 mmol/L Normal 21-[address] [facility] Comment on above: Performed By: #### L [id number] ####[facility] ([facility])[address] [place] [address] Creatinine [Mass/Vol] 0.94 mg/dL Normal 0.70-1.30 [facility] Comment on above: Performed By: #### L [id number] ####[facility] ([facility])[address] [place] [address] GLOMERULAR FILTRATION RATE ML/MIN/1.73 SQ M.PREDICTED 83.0 mL/min/1.73m*2 Normal >60.0 [facility] Comment on above: Result Comment: The [facility]???s estimated glomerular filtration rate (eGFR) will no longer include consideration of race in its calculation. The National Kidney Foundation???s eGFR Task Force developed new recommendations for the estimation of the glomerular filtration rate in the [place] They recommend immediate implementation of the new equation refit without the race variable in all laboratories because the calculation does not include race. In addition to not including race in the calculation and reporting, it included diversity in its development, and has acceptable performance characteristics and potential consequences that do not disproportionately affect any one group of individuals. Performed By: #### L [id number] ####[facility] ([facility])[address] [place] [address] Glucose [Mass/Vol] 108 mg/dL High 70-100 [facility] Comment on above: Performed By: #### L [id number] ####[facility] ([facility])[address] [place] [address] Potassium [Moles/Vol] 3.8 mmol/L Normal 3.5-5.1 [facility] Comment on above: Performed By: #### L [id number] ####[facility] ([facility])[address] [place] [address] Sodium [Moles/Vol] 140 mmol/L Normal 136-145 [facility] Comment on above: Performed By: #### L [id number] ####[facility] ([facility])[address] [place] [address] Urea nitrogen [Mass/Vol] 29 mg/dL High 7-25 [facility] Comment on above: Performed By: #### L [id number] ####[facility] ([facility])[address] [place] [address] UREA NITROGEN/CREATININE (MASS RATIO) IN SER/PLAS 30.9 Normal [facility] Comment on above: Performed By: #### L [id number] ####[facility] ([facility])[address] [place] [address] CBC WITH AUTO DIFFERENTIALon 03-04-2024 Basophils (Bld) [#/Vol] 0.02 10*3/uL Normal 0.00-0.20 [facility] Comment on above: Performed By: #### L [id number] ####[facility] ([facility])[address] [place] [address] Basophils/100 WBC (Bld) 0.2 % Normal 0.0-1.0 [facility] Comment on above: Performed By: #### L [id number] ####[facility] [facility] ([facility])[address] [place] [address] Eosinophils (Bld) [#/Vol] 0.00 10*3/uL Normal 0.00-0.50 [facility] Comment on above: Performed By: #### L [id number] ####[facility] (BEAK[facility])[address] [place] [address] Eosinophils/100 WBC (Bld) 0.0 % Normal 0.0-6.0 [facility] Comment on above: Performed By: #### L [id number] ####[facility] ([facility])[address] [place] [address] Erythrocyte distribution width (RBC) [Ratio] 13.2 % Normal 11.5-15.0 [facility] Comment on above: Performed By: #### L [id number] ####[facility] ([facility])[address] [place] [address] ERYTHROCYTE MEAN CORPUSCULAR HEMOGLOBIN CONCENTRATION (G/DL) BY AUTOMATED 31.5 g/dL Low 32.0-35.0 [facility] Comment on above: Performed By: #### L [id number] ####[facility] ([facility])[address] [place] [address] Hematocrit (Bld) [Volume fraction] 38.7 % Low 39.0-55.0 [facility] Comment on above: Performed By: #### L [id number] ####[facility] ([facility])[address] [place] [address] Hemoglobin (Bld) [Mass/Vol] 12.2 g/dL Low 13.0-17.0 [facility] Comment on above: Performed By: #### L [id number] ####[facility] ([facility])[address] [place] [address] Immature granulocytes (Bld) [#/Vol] 0.12 10*3/uL Normal 0.00-0.20 [facility] Comment on above: Performed By: #### L [id number] ####[facility] ([facility])[address] [place] [address] Immature granulocytes/100 WBC (Bld) 1.2 % High 0.0-1.0 [facility] Comment on above: Performed By: #### L [id number] ####[facility] ([facility])[address] [place] [address] Lymphocytes (Bld) [#/Vol] 1.13 10*3/uL Low 1.20-4.00 [facility] Comment on above: Performed By: #### L [id number] ####[facility] ([facility])[address] [place] [address] Lymphocytes/100 WBC (Bld) 11.3 % Low 20.0-45.0 [facility] Comment on above: Performed By: #### L [id number] ####[facility] ([facility])[address] [place] [address] MCH (RBC) [Entitic mass] 31.7 pg Normal 27.0-33.0 [facility] Comment on above: Performed By: #### L [id number] ####[facility] ([facility])[address] [place] [address] MCV (RBC) [Entitic vol] 100.5 fL High 82.0-98.0 [facility] Comment on above: Performed By: #### L [id number] ####[facility] ([facility])[address] [place] [address] Monocytes (Bld) [#/Vol] 0.87 10*3/uL Normal 0.10-1.00 [facility] Comment on above: Performed By: #### L [id number] ####[facility] ([facility])[address] [place] [address] Monocytes/100 WBC (Bld) 8.7 % Normal 5.0-12.0 [facility] Comment on above: Performed By: #### L [id number] ####[facility] ([facility])[address] [place] [address] Neutrophils (Bld) [#/Vol] 7.88 10*3/uL High 1.60-7.60 [facility] Comment on above: Performed By: #### L [id number] ####[facility] (BE[facility]ER)[address] [place] [address] Neutrophils/100 WBC (Bld) 78.6 % High 40.0-72.0 [facility] Comment on above: Performed By: #### L [id number] ####[facility] ([facility])[address] [place] [address] NRBC (PER 100 WBCS) BY AUTOMATED COUNT 0.0 % Normal 0 [facility] Comment on above: Performed By: #### L [id number] ####[facility] ([facility])[address] [place] [address] PLATELETS (10*3/UL) IN BLOOD AUTOMATED COUNT 182 10*3/uL Normal 150-400 [facility] Comment on above: Performed By: #### L [id number] ####[facility] ([facility])[address] [place] [address] RBC (Bld) [#/Vol] 3.85 10*6/uL Low 4.20-5.70 [facility] Comment on above: Performed By: #### L [id number] ####[facility] ([facility])[address] [place] [address] WBC (Bld) [#/Vol] 10.02 10*3/uL Normal 4.00-10.60 [facility] Comment on above: Performed By: #### L [id number] ####[facility] ([facility])[address] [place] [address] CONSULTon 03-04-2024 CONSULT Normal [facility] HPon 03-04-2024 HP Normal [facility] MAGNESIUMon 03-04-2024 Magnesium [Mass/Vol] 1.8 mg/dL Low 1.9-2.7 [facility] Comment on above: Performed By: #### L [id number] ####[facility] ([facility])[address] [place] [address] PHOSPHORUSon 03-04-2024 Magnesium [Mass/Vol] 3.1 mg/dL Normal 2.5-5.0 [facility] Comment on above: Performed By: #### L [id number] ####[facility] ([facility])[address] [place] [address] 30on 03-03-2024 30 Normal [facility] 30 Normal [facility] 30 Normal [facility] 30 Normal [facility] APTTon 03-03-2024 ACTIVATED PARTIAL THROMBOPLASTIN TIME IN PPP BY COAGULATION ASSAY 147.8 Seconds Critically high 25.0-35.0 [facility] Comment on above: Result Comment: Clin ical significance of the APTT is questionable in the presence of heparin. Performed By: #### L [id number] ####[facility] ([facility])[address] [place] [address] ACTIVATED PARTIAL THROMBOPLASTIN TIME IN PPP BY COAGULATION ASSAY 124.5 Seconds High 25.0-35.0 [facility] Comment on above: Result Comment: Clin ical significance of the APTT is questionable in the presence of heparin. Performed By: #### L [id number] ####[facility] ([facility])[address] [place] [address] ACTIVATED PARTIAL THROMBOPLASTIN TIME IN PPP BY COAGULATION ASSAY 169.5 Seconds Critically high 25.0-35.0 [facility] Comment on above: Order Comment: Check aPTT every 6 hours while on heparin infusion, or per protocol. Result Comment: Clin ical significance of the APTT is questionable in the presence of heparin. Performed By: #### L [id number] ####[facility] ([facility])[address] [place] [address] BASIC METABOLIC PANELon 02-13 Anion gap [Moles/Vol] 9 mmol/L Normal 7-20 [facility] Comment on above: Performed By: #### L [id number] ####[facility] ([facility])[address] [place] [address] Calcium [Mass/Vol] 8.2 mg/dL Low 8.6-10.3 [facility] Comment on above: Performed By: #### L [id number] ####[facility] ([facility])[address] [place] [address] Chloride [Moles/Vol] 103 mmol/L Normal 98-107 [facility] Comment on above: Performed By: #### L [id number] ####[facility] ([facility])[address] [place] [address] CO2 [Moles/Vol] 32 mmol/L High 21-[address] [facility] Comment on above: Performed By: #### L [id number] ####[facility] ([facility])[address] [place] [address] Creatinine [Mass/Vol] 0.93 mg/dL Normal 0.70-1.30 [facility] Comment on above: Performed By: #### L [id number] ####[facility] ([facility])[address] [place] [address] GLOMERULAR FILTRATION RATE ML/MIN/1.73 SQ M.PREDICTED 84.0 mL/min/1.73m*2 Normal >60.0 [facility] Comment on above: Result Comment: The [facility]???s estimated glomerular filtration rate (eGFR) will no longer include consideration of race in its calculation. The National Kidney Foundation???s eGFR Task Force developed new recommendations for the estimation of the glomerular filtration rate in the [place] They recommend immediate implementation of the new equation refit without the race variable in all laboratories because the calculation does not include race. In addition to not including race in the calculation and reporting, it included diversity in its development, and has acceptable performance characteristics and potential consequences that do not disproportionately affect any one group of individuals. Performed By: #### L [id number] ####[facility] (BEAKER)[address] [place] [address] Glucose [Mass/Vol] 110 mg/dL High 70-100 [facility] Comment on above: Performed By: #### L [id number] ####[facility] ([facility]ER)[address] [place] [address] Potassium [Moles/Vol] 3.3 mmol/L Low 3.5-5.1 [facility] Comment on above: Performed By: #### L [id number] ####[facility] ([facility])[address] [place] [address] Sodium [Moles/Vol] 141 mmol/L Normal 136-145 [facility] Comment on above: Performed By: #### L [id number] ####[facility] ([facility])[address] [place] [address] Urea nitrogen [Mass/Vol] 27 mg/dL High 7-25 [facility] Comment on above: Performed By: #### L [id number] ####[facility] ([facility])[address] [place] [address] UREA NITROGEN/CREATININE (MASS RATIO) IN SER/PLAS 29.0 Normal [facility] Comment on above: Performed By: #### L [id number] ####[facility] ([facility])[address] [place] [address] CBC WITH AUTO DIFFERENTIALon 03-03-2024 Basophils (Bld) [#/Vol] 0.01 10*3/uL Normal 0.00-0.20 [facility] Comment on above: Performed By: #### L [id number] ####[facility] ([facility])[address] [place] [address] Basophils/100 WBC (Bld) 0.1 % Normal 0.0-1.0 [facility] Comment on above: Performed By: #### L [id number] ####[facility] ([facility])[address] [place] [address] Eosinophils (Bld) [#/Vol] 0.00 10*3/uL Normal 0.00-0.50 [facility] Comment on above: Performed By: #### L [id number] ####[facility] ([facility])[address] [place] [address] Eosinophils/100 WBC (Bld) 0.0 % Normal 0.0-6.0 [facility] Comment on above: Performed By: #### L [id number] ####[facility] ([facility]ER)[address] [place] [address] Erythrocyte distribution width (RBC) [Ratio] 13.2 % Normal 11.5-15.0 [facility] Comment on above: Performed By: #### L [id number] ####[facility] ([facility])[address] [place] [address] ERYTHROCYTE MEAN CORPUSCULAR HEMOGLOBIN CONCENTRATION (G/DL) BY AUTOMATED 32.1 g/dL Normal 32.0-35.0 [facility] Comment on above: Performed By: #### L [id number] ####[facility] ([facility])[address] [place] [address] Hematocrit (Bld) [Volume fraction] 38.0 % Low 39.0-55.0 [facility] Comment on above: Performed By: #### L [id number] ####[facility] ([facility])[address] [place] [address] Hemoglobin (Bld) [Mass/Vol] 12.2 g/dL Low 13.0-17.0 [facility] Comment on above: Performed By: #### L [id number] ####[facility] ([facility])[address] [place] [address] Immature granulocytes (Bld) [#/Vol] 0.07 10*3/uL Normal 0.00-0.20 [facility] Comment on above: Performed By: #### L [id number] ####[facility] ([facility])[address] [place] [address] Immature granulocytes/100 WBC (Bld) 0.7 % Normal 0.0-1.0 [facility] Comment on above: Performed By: #### L [id number] ####[facility] (BE[facility]ER)[address] [place] [address] Lymphocytes (Bld) [#/Vol] 1.03 10*3/uL Low 1.20-4.00 [facility] Comment on above: Performed By: #### L [id number] ####[facility] ([facility])[address] [place] [address] Lymphocytes/100 WBC (Bld) 10.2 % Low 20.0-45.0 [facility] Comment on above: Performed By: #### L [id number] ####[facility] ([facility])[address] [place] [address] MCH (RBC) [Entitic mass] 31.4 pg Normal 27.0-33.0 [facility] Comment on above: Performed By: #### L [id number] ####[facility] ([facility])[address] [place] [address] MCV (RBC) [Entitic vol] 97.7 fL Normal 82.0-98.0 [facility] Comment on above: Performed By: #### L [id number] ####[facility] ([facility])[address] [place] [address] Monocytes (Bld) [#/Vol] 1.01 10*3/uL High 0.10-1.00 [facility] Comment on above: Performed By: #### L [id number] ####[facility] ([facility])[address] [place] [address] Monocytes/100 WBC (Bld) 10.0 % Normal 5.0-12.0 [facility] Comment on above: Performed By: #### L [id number] ####[facility] ([facility])[address] [place] [address] Neutrophils (Bld) [#/Vol] 8.01 10*3/uL High 1.60-7.60 [facility] Comment on above: Performed By: #### L [id number] ####[facility] (BEAKER)[address] [place] [address] Neutrophils/100 WBC (Bld) 79.0 % High 40.0-72.0 [facility] Comment on above: Performed By: #### L [id number] ####[facility] ([facility])[address] [place] [address] NRBC (PER 100 WBCS) BY AUTOMATED COUNT 0.0 % Normal 0 [facility] Comment on above: Performed By: #### L [id number] ####[facility] ([facility])[address] [place] [address] PLATELETS (10*3/UL) IN BLOOD AUTOMATED COUNT 164 10*3/uL Normal 150-400 [facility] Comment on above: Performed By: #### L [id number] ####[facility] ([facility])[address] [place] [address] RBC (Bld) [#/Vol] 3.89 10*6/uL Low 4.20-5.70 [facility] Comment on above: Performed By: #### L [id number] ####[facility] ([facility])[address] [place] [address] WBC (Bld) [#/Vol] 10.13 10*3/uL Normal 4.00-10.60 [facility] Comment on above: Performed By: #### L [id number] ####[facility] ([facility])[address] [place] [address] CLOSTRIDIOIDES DIFFICILE DNA AMPLIFICATIONon 03-03-2024 CLOSTRIDIOIDES DIFFICILE (TOXIN A/B) Negative Normal Negative [facility] Comment on above: Order Comment: Testi ng methodology is an in vitro diagnostic test for the direct, qualitative detection of the Clostridioides difficile Toxin A gene (tcdA) in unformed stool specimens of patients suspected of having Clostridioides difficile-infection (CDI). The [place] C. difficile Assay is intended for use as an aid in diagnosis of CDI. The assay utilizes helicase-dependent amplification (HDA) for the amplification of a highly conserved fragment of the Toxin A gene sequence.Testing methodology is an in vitro diagnostic test for the direct, qualitative detection of the Clostridioides difficile Toxin A gene (tcdA) in unformed stool specimens of patients suspected of having Clostridioides difficile-infection (CDI). The [place] C. difficile Assay is intended for use as an aid in diagnosis of CDI. The assay utilizes helicase-dependent amplification (HDA) for the amplification of a highly conserved fragment of the Toxin A gene sequence. Performed By: #### L [id number] ####[facility] ([facility])[address] [place] [address] MAGNESIUMon 03-03-2024 Magnesium [Mass/Vol] 1.9 mg/dL Normal 1.9-2.7 [facility] Comment on above: Performed By: #### L [id number] ####[facility] ([facility])[address] [place] [address] NURSNOTEon 03-03-2024 NURSNOTE Normal [facility] NURSNOTE Normal [facility] PHOSPHORUSon 03-03-2024 Magnesium [Mass/Vol] 2.7 mg/dL Normal 2.5-5.0 [facility] Comment on above: Performed By: #### L [id number] ####[facility] ([facility])[address] [place] [address] 30on 03-02-2024 30 The patient is Moderately Stable - Low risk of patient condition declining or worsening The patient's goals for the shift include Comfort The clinical goals for the shift include VSS, safety Normal [facility] APTTon 03-02-2024 ACTIVATED PARTIAL THROMBOPLASTIN TIME IN PPP BY COAGULATION ASSAY 127.4 Seconds High 25.0-35.0 [facility] Comment on above: Order Comment: Check aPTT every 6 hours while on heparin infusion, or per protocol. Result Comment: Clin ical significance of the APTT is questionable in the presence of heparin. Performed By: #### L [id number] ####[facility] ([facility])[address] [place] [address] ACTIVATED PARTIAL THROMBOPLASTIN TIME IN PPP BY COAGULATION ASSAY 106.1 Seconds High 25.0-35.0 [facility] Comment on above: Order Comment: Check aPTT every 6 hours while on heparin infusion, or per protocol. Result Comment: Clin ical significance of the APTT is questionable in the presence of heparin. Performed By: #### L [id number] ####[facility] ([facility])[address] [place] [address] BASIC METABOLIC PANELon 02-12 Anion gap [Moles/Vol] 10 mmol/L Normal 7-20 [facility] Comment on above: Performed By: #### L [id number] ####[facility] ([facility])[address] [place] [address] Calcium [Mass/Vol] 8.1 mg/dL Low 8.6-10.3 [facility] Comment on above: Performed By: #### L [id number] ####[facility] ([facility])[address] [place] [address] Chloride [Moles/Vol] 104 mmol/L Normal 98-107 [facility] Comment on above: Performed By: #### L [id number] ####[facility] ([facility])[address] [place] [address] CO2 [Moles/Vol] 30 mmol/L Normal 21-[address] [facility] Comment on above: Performed By: #### L [id number] ####[facility] ([facility])[address] [place] [address] Creatinine [Mass/Vol] 0.97 mg/dL Normal 0.70-1.30 [facility] Comment on above: Performed By: #### L [id number] ####[facility] ([facility])[address] [place] [address] GLOMERULAR FILTRATION RATE ML/MIN/1.73 SQ M.PREDICTED 79.9 mL/min/1.73m*2 Normal >60.0 [facility] Comment on above: Result Comment: The [facility]???s estimated glomerular filtration rate (eGFR) will no longer include consideration of race in its calculation. The National Kidney Foundation???s eGFR Task Force developed new recommendations for the estimation of the glomerular filtration rate in the [place] They recommend immediate implementation of the new equation refit without the race variable in all laboratories because the calculation does not include race. In addition to not including race in the calculation and reporting, it included diversity in its development, and has acceptable performance characteristics and potential consequences that do not disproportionately affect any one group of individuals. Performed By: #### L [id number] ####[facility] ([facility])[address] [place] [address] Glucose [Mass/Vol] 136 mg/dL High 70-100 [facility] Comment on above: Performed By: #### L [id number] ####[facility] ([facility])[address] [place] [address] Potassium [Moles/Vol] 3.0 mmol/L Low 3.5-5.1 [facility] Comment on above: Performed By: #### L [id number] ####[facility] ([facility])[address] [place] [address] Sodium [Moles/Vol] 141 mmol/L Normal 136-145 [facility] Comment on above: Performed By: #### L [id number] ####[facility] ([facility])[address] [place] [address] Urea nitrogen [Mass/Vol] 37 mg/dL High 7-25 [facility] Comment on above: Performed By: #### L [id number] ####[facility] ([facility])[address] [place] [address] UREA NITROGEN/CREATININE (MASS RATIO) IN SER/PLAS 38.1 Normal [facility] Comment on above: Performed By: #### L [id number] ####[facility] ([facility])[address] [place] [address] CBC WITH AUTO DIFFERENTIALon 03-02-2024 Basophils (Bld) [#/Vol] 0.01 10*3/uL Normal 0.00-0.20 [facility] Comment on above: Performed By: #### L [id number] ####[facility] ([facility])[address] [place] [address] Basophils/100 WBC (Bld) 0.1 % Normal 0.0-1.0 [facility] Comment on above: Performed By: #### L [id number] ####[facility] ([facility])[address] [place] [address] Eosinophils (Bld) [#/Vol] 0.00 10*3/uL Normal 0.00-0.50 [facility] Comment on above: Performed By: #### L [id number] ####[facility] (BE[facility]ER)[address] [place] [address] Eosinophils/100 WBC (Bld) 0.0 % Normal 0.0-6.0 [facility] Comment on above: Performed By: #### L [id number] ####[facility] ([facility])[address] [place] [address] Erythrocyte distribution width (RBC) [Ratio] 12.9 % Normal 11.5-15.0 [facility] Comment on above: Performed By: #### L [id number] ####[facility] ([facility])[address] [place] [address] ERYTHROCYTE MEAN CORPUSCULAR HEMOGLOBIN CONCENTRATION (G/DL) BY AUTOMATED 32.3 g/dL Normal 32.0-35.0 [facility] Comment on above: Performed By: #### L [id number] ####[facility] ([facility])[address] [place] [address] Hematocrit (Bld) [Volume fraction] 36.8 % Low 39.0-55.0 [facility] Comment on above: Performed By: #### L [id number] ####[facility] ([facility]ER)[address] [place] [address] Hemoglobin (Bld) [Mass/Vol] 11.9 g/dL Low 13.0-17.0 [facility] Comment on above: Performed By: #### L [id number] ####[facility] ([facility])[address] [place] [address] Immature granulocytes (Bld) [#/Vol] 0.05 10*3/uL Normal 0.00-0.20 [facility] Comment on above: Performed By: #### L [id number] ####[facility] ([facility])[address] [place] [address] Immature granulocytes/100 WBC (Bld) 0.7 % Normal 0.0-1.0 [facility] Comment on above: Performed By: #### L [id number] ####[facility] (BEAKER)[address] [place] [address] Lymphocytes (Bld) [#/Vol] 0.58 10*3/uL Low 1.20-4.00 [facility] Comment on above: Performed By: #### L [id number] ####[facility] (BEAKER)[address] [place] [address] Lymphocytes/100 WBC (Bld) 7.8 % Low 20.0-45.0 [facility] Comment on above: Performed By: #### L [id number] ####[facility] (BEAKER)[address] [place] [address] MCH (RBC) [Entitic mass] 32.1 pg Normal 27.0-33.0 [facility] Comment on above: Performed By: #### L [id number] ####[facility] (BEAKER)[address] [place] [address] MCV (RBC) [Entitic vol] 99.2 fL High 82.0-98.0 [facility] Comment on above: Performed By: #### L [id number] ####[facility] (BEAKER)[address] [place] [address] Monocytes (Bld) [#/Vol] 0.56 10*3/uL Normal 0.10-1.00 [facility] Comment on above: Performed By: #### L [id number] ####[facility] (BEAKER)[address] [place] [address] Monocytes/100 WBC (Bld) 7.5 % Normal 5.0-12.0 [facility] Comment on above: Performed By: #### L [id number] ####[facility] (BEAKER)[address] [place] [address] Neutrophils (Bld) [#/Vol] 6.28 10*3/uL Normal 1.60-7.60 [facility] Comment on above: Performed By: #### L [id number] ####[facility] (BEAKER)[address] [place] [address] Neutrophils/100 WBC (Bld) 83.9 % High 40.0-72.0 [facility] Comment on above: Performed By: #### L [id number] ####[facility] ([facility])[address] [place] [address] NRBC (PER 100 WBCS) BY AUTOMATED COUNT 0.0 % Normal 0 [facility] Comment on above: Performed By: #### L [id number] ####[facility] ([facility])[address] [place] [address] PLATELETS (10*3/UL) IN BLOOD AUTOMATED COUNT 159 10*3/uL Normal 150-400 [facility] Comment on above: Performed By: #### L [id number] ####[facility] ([facility])[address] [place] [address] RBC (Bld) [#/Vol] 3.71 10*6/uL Low 4.20-5.70 [facility] Comment on above: Performed By: #### L [id number] ####[facility] ([facility])[address] [address] WBC (Bld) [#/Vol] 7.48 10*3/uL Normal 4.00-10.60 [facility] Comment on above: Performed By: #### L [id number] ####[facility] ([facility])[address] [place] [address] MAGNESIUMon 03-02-2024 Magnesium [Mass/Vol] 1.9 mg/dL Normal 1.9-2.7 [facility] Comment on above: Performed By: #### L [id number] ####[facility] ([facility])[address] [place] [address] NURSNOTEon 03-02-2024 NURSNOTE Normal [facility] PHOSPHORUSon 03-02-2024 Magnesium [Mass/Vol] 3.4 mg/dL Normal 2.5-5.0 [facility] Comment on above: Performed By: #### L [id number] ####[facility] (BEAKER)[address] [place] [address] VENOUS BLOOD GAS WITH IONIZE D CALCIUMon 03-02-2024 Base excess Calc (BldV) [Moles/Vol] 4.3 mmol/L Normal [facility] Comment on above: Performed By: #### L [id number] ####[facility] [id number] [place] [address] [facility] CALCIUM IONIZED (MMOL/L) IN BLOOD 1.19 mmol/L Normal 1.15-1.33 [facility] Comment on above: Performed By: #### L [id number] ####[facility] [id number] [place] [address] [facility] CO2 (BldV) [Partial pressure] 47 mm[Hg] Normal 40-50 [facility] Comment on above: Performed By: #### L [id number] ####[facility] [id number] [place] [address] [facility] HCO3 (Bld) [Moles/Vol] 29.8 mmol/L Normal [facility] Comment on above: Performed By: #### L [id number] ####[facility] [id number] [place] [address] [facility] Oxygen (BldV) [Partial pressure] 46 mm[Hg] High 35-45 [facility] Comment on above: Performed By: #### L [id number] ####[facility] [id number] [place] [address] [facility] OXYGEN SATURATION (%) IN VENOUS BLOOD 76.1 % High 65.0-75.0 [facility] Comment on above: Performed By: #### L [id number] ####[facility]PIR[facility] [id number] [place] [address] [facility] PH OF VENOUS BLOOD 7.41 Normal 7.31-7.41 [facility] Comment on above: Performed By: #### L [id number] ####[facility]PIRAT[facility] [id number] [place] [address] [place] 30on 03-01-2024 30 Normal [facility] BASIC METABOLIC PANELon 10- Anion gap [Moles/Vol] 10 mmol/L Normal 7-20 [facility] Comment on above: Performed By: #### L [id number] ####[facility] (BEAKER)[address] [place] [address] Calcium [Mass/Vol] 8.3 mg/dL Low 8.6-10.3 [facility] Comment on above: Performed By: #### L [id number] ####[facility] (BEAKER)[address] [place] [address] Chloride [Moles/Vol] 104 mmol/L Normal 98-107 [facility] Comment on above: Performed By: #### L [id number] ####[facility] (BEAKER)[address] [place] [address] CO2 [Moles/Vol] 29 mmol/L Normal 21-[address] [facility] Comment on above: Performed By: #### L [id number] ####[facility] (BEAKER)[address] [place] [address] Creatinine [Mass/Vol] 0.99 mg/dL Normal 0.70-1.30 [facility] Comment on above: Performed By: #### L [id number] ####[facility] ([facility])[address] [place] [address] GLOMERULAR FILTRATION RATE ML/MIN/1.73 SQ M.PREDICTED 78.0 mL/min/1.73m*2 Normal >60.0 [facility] Comment on above: Result Comment: The [facility]???s estimated glomerular filtration rate (eGFR) will no longer include consideration of race in its calculation. The National Kidney Foundation???s eGFR Task Force developed new recommendations for the estimation of the glomerular filtration rate in the [place] They recommend immediate implementation of the new equation refit without the race variable in all laboratories because the calculation does not include race. In addition to not including race in the calculation and reporting, it included diversity in its development, and has acceptable performance characteristics and potential consequences that do not disproportionately affect any one group of individuals. Performed By: #### L [id number] ####[facility] ([facility])[address] [place] [address] Glucose [Mass/Vol] 156 mg/dL High 70-100 [facility] Comment on above: Performed By: #### L [id number] ####[facility] ([facility])[address] [place] [address] Potassium [Moles/Vol] 3.4 mmol/L Low 3.5-5.1 [facility] Comment on above: Performed By: #### L [id number] ####[facility] ([facility])[address] [place] [address] Sodium [Moles/Vol] 140 mmol/L Normal 136-145 [facility] Comment on above: Performed By: #### L [id number] ####[facility] ([facility])[address] [place] [address] Urea nitrogen [Mass/Vol] 35 mg/dL High 7-25 [facility] Comment on above: Performed By: #### L [id number] ####[facility] ([facility])[address] [place] [address] UREA NITROGEN/CREATININE (MASS RATIO) IN SER/PLAS 35.4 Normal [facility] Comment on above: Performed By: #### L [id number] ####[facility] ([facility])[address] [place] [address] BLOOD CULTUREon 03-01-2024 Bacteria identified Cx Nom (Bld) No growth at 5 days Normal [facility] Comment on above: Performed By: #### L [id number] ####[facility] ([facility])[address] [place] [address] CBC WITH AUTO DIFFERENTIALon 03-01-2024 Basophils (Bld) [#/Vol] 0.01 10*3/uL Normal 0.00-0.20 [facility] Comment on above: Performed By: #### L [id number] ####[facility] ([facility])[address] [place] [address] Basophils/100 WBC (Bld) 0.1 % Normal 0.0-1.0 [facility] Comment on above: Performed By: #### L [id number] ####[facility] ([facility])[address] [place] [address] Eosinophils (Bld) [#/Vol] 0.00 10*3/uL Normal 0.00-0.50 [facility] Comment on above: Performed By: #### L [id number] ####[facility] ([facility])[address] [place] [address] Eosinophils/100 WBC (Bld) 0.0 % Normal 0.0-6.0 [facility] Comment on above: Performed By: #### L [id number] ####[facility] ([facility])[address] [place] [address] Erythrocyte distribution width (RBC) [Ratio] 12.9 % Normal 11.5-15.0 [facility] Comment on above: Performed By: #### L [id number] ####[facility] ([facility])[address] [place] [address] ERYTHROCYTE MEAN CORPUSCULAR HEMOGLOBIN CONCENTRATION (G/DL) BY AUTOMATED 32.1 g/dL Normal 32.0-35.0 [facility] Comment on above: Performed By: #### L [id number] ####[facility] ([facility])[address] [place] [address] Hematocrit (Bld) [Volume fraction] 38.9 % Low 39.0-55.0 [facility] Comment on above: Performed By: #### L [id number] ####[facility] (BEAKER)[address] [place] [address] Hemoglobin (Bld) [Mass/Vol] 12.5 g/dL Low 13.0-17.0 [facility] Comment on above: Performed By: #### L [id number] ####[facility] (BEAKER)[address] [place] [address] Immature granulocytes (Bld) [#/Vol] 0.05 10*3/uL Normal 0.00-0.20 [facility] Comment on above: Performed By: #### L [id number] ####[facility] ([facility])[address] [place] [address] Immature granulocytes/100 WBC (Bld) 0.5 % Normal 0.0-1.0 [facility] Comment on above: Performed By: #### L [id number] ####[facility] ([facility])[address] [place] [address] Lymphocytes (Bld) [#/Vol] 0.42 10*3/uL Low 1.20-4.00 [facility] Comment on above: Performed By: #### L [id number] ####[facility] ([facility])[address] [place] [address] Lymphocytes/100 WBC (Bld) 4.2 % Low 20.0-45.0 [facility] Comment on above: Performed By: #### L [id number] ####[facility] ([facility])[address] [place] [address] MCH (RBC) [Entitic mass] 31.9 pg Normal 27.0-33.0 [facility] Comment on above: Performed By: #### L [id number] ####[facility] ([facility])[address] [place] [address] MCV (RBC) [Entitic vol] 99.2 fL High 82.0-98.0 [facility] Comment on above: Performed By: #### L [id number] ####[facility] ([facility])[address] [place] [address] Monocytes (Bld) [#/Vol] 0.45 10*3/uL Normal 0.10-1.00 [facility] Comment on above: Performed By: #### L [id number] ####[facility] (BEAKER)[address] [place] [address] Monocytes/100 WBC (Bld) 4.5 % Low 5.0-12.0 [facility] Comment on above: Performed By: #### L [id number] ####[facility] (BEAKER)[address] [place] [address] Neutrophils (Bld) [#/Vol] 9.11 10*3/uL High 1.60-7.60 [facility] Comment on above: Performed By: #### L [id number] ####[facility] (BEAKER)[address] [address] Neutrophils/100 WBC (Bld) 90.7 % High 40.0-72.0 [facility] Comment on above: Performed By: #### L [id number] ####[facility] (BEAKER)[address] [address] NRBC (PER 100 WBCS) BY AUTOMATED COUNT 0.0 % Normal 0 [facility] Comment on above: Performed By: #### L [id number] ####[facility] (BEAKER)[address] [address] PLATELETS (10*3/UL) IN BLOOD AUTOMATED COUNT 165 10*3/uL Normal 150-400 [facility] Comment on above: Performed By: #### L [id number] ####[facility] (BEAKER)[address] [place] [address] RBC (Bld) [#/Vol] 3.92 10*6/uL Low 4.20-5.70 [facility] Comment on above: Performed By: #### L [id number] ####[facility] (BEAKER)[address] [address] WBC (Bld) [#/Vol] 10.04 10*3/uL Normal 4.00-10.60 [facility] Comment on above: Performed By: #### L [id number] ####[facility] (BEAKER)[address] [address] Basophils (Bld) [#/Vol] 0.01 10*3/uL Normal 0.00-0.20 [facility] Comment on above: Performed By: #### L [id number] ####[facility] (BEAKER)[address] [place] [address] Basophils/100 WBC (Bld) 0.1 % Normal 0.0-1.0 [facility] Comment on above: Performed By: #### L [id number] ####[facility] (BEAKER)[address] [place] [address] Eosinophils (Bld) [#/Vol] 0.00 10*3/uL Normal 0.00-0.50 [facility] Comment on above: Performed By: #### L [id number] ####[facility] (BEAKER)[address] [place] [address] Eosinophils/100 WBC (Bld) 0.0 % Normal 0.0-6.0 [facility] Comment on above: Performed By: #### L [id number] ####[facility] (BEAKER)[address] [place] [address] Erythrocyte distribution width (RBC) [Ratio] 12.8 % Normal 11.5-15.0 [facility] Comment on above: Performed By: #### L [id number] ####[facility] (BEAKER)[address] [place] [address] ERYTHROCYTE MEAN CORPUSCULAR HEMOGLOBIN CONCENTRATION (G/DL) BY AUTOMATED 31.9 g/dL Low 32.0-35.0 [facility] Comment on above: Performed By: #### L [id number] ####[facility] (BEAKER)[address] [place] [address] Hematocrit (Bld) [Volume fraction] 37.9 % Low 39.0-55.0 [facility] Comment on above: Performed By: #### L [id number] ####[facility] (BEAKER)[address] [place] [address] Hemoglobin (Bld) [Mass/Vol] 12.1 g/dL Low 13.0-17.0 [facility] Comment on above: Performed By: #### L [id number] ####[facility] (BEAKER)[address] [place] [address] Immature granulocytes (Bld) [#/Vol] 0.05 10*3/uL Normal 0.00-0.20 [facility] Comment on above: Performed By: #### L [id number] ####[facility] (BEAKER)[address] [place] [address] Immature granulocytes/100 WBC (Bld) 0.7 % Normal 0.0-1.0 [facility] Comment on above: Performed By: #### L [id number] ####[facility] (BEAKER)[address] [place] [address] Lymphocytes (Bld) [#/Vol] 0.43 10*3/uL Low 1.20-4.00 [facility] Comment on above: Performed By: #### L [id number] ####[facility] (BEAKER)[address] [place] [address] Lymphocytes/100 WBC (Bld) 6.0 % Low 20.0-45.0 [facility] Comment on above: Performed By: #### L [id number] ####[facility] (BEAKER)[address] [place] [address] MCH (RBC) [Entitic mass] 32.1 pg Normal 27.0-33.0 [facility] Comment on above: Performed By: #### L [id number] ####[facility] (BEAKER)[address] [place] [address] MCV (RBC) [Entitic vol] 100.5 fL High 82.0-98.0 [facility] Comment on above: Performed By: #### L [id number] ####[facility] (BEAKER)[address] [place] [address] Monocytes (Bld) [#/Vol] 0.26 10*3/uL Normal 0.10-1.00 [facility] Comment on above: Performed By: #### L [id number] ####[facility] (BEAKER)[address] [facility] [place] [address] Monocytes/100 WBC (Bld) 3.6 % Low 5.0-12.0 [facility] Comment on above: Performed By: #### L [id number] ####[facility] ([facility])[address] [address] Neutrophils (Bld) [#/Vol] 6.39 10*3/uL Normal 1.60-7.60 [facility] Comment on above: Performed By: #### L [id number] ####[facility] ([facility])[address] [address] Neutrophils/100 WBC (Bld) 89.6 % High 40.0-72.0 [facility] Comment on above: Performed By: #### L [id number] ####[facility] ([facility])[address] [address] NRBC (PER 100 WBCS) BY AUTOMATED COUNT 0.0 % Normal 0 [facility] Comment on above: Performed By: #### L [id number] ####[facility] ([facility])[address] [place] [address] PLATELETS (10*3/UL) IN BLOOD AUTOMATED COUNT 161 10*3/uL Normal 150-400 [facility] Comment on above: Performed By: #### L [id number] ####[facility] ([facility])[address] [address] RBC (Bld) [#/Vol] 3.77 10*6/uL Low 4.20-5.70 [facility] Comment on above: Performed By: #### L [id number] ####[facility] ([facility])[address] [address] WBC (Bld) [#/Vol] 7.14 10*3/uL Normal 4.00-10.60 [facility] Comment on above: Performed By: #### L [id number] ####[facility] ([facility])[address] [place] [address] CONSULTon 03-01-2024 CONSULT Normal [facility] MAGNESIUMon 03-01-2024 Magnesium [Mass/Vol] 2.1 mg/dL Normal 1.9-2.7 [facility] Comment on above: Performed By: #### L [id number] ####[facility] ([facility])[address] [place] [address] PHOSPHORUSon 03-01-2024 Magnesium [Mass/Vol] 2.3 mg/dL Low 2.5-5.0 [facility] Comment on above: Performed By: #### L [id number] ####[facility] ([facility])[address] [place] [address] PLATELET COUNTon 03-01-2024 PLATELETS (10*3/UL) IN BLOOD AUTOMATED COUNT 157 10*3/uL Normal 150-400 [facility] Comment on above: Performed By: #### L [id number] ####[facility] ([facility])[address] [place] [address] URINALYSIS WITH MICROSCOPICo n 03-01-2024 BILIRUBIN, TOTAL PRESENCE IN URINE Negative Normal Negative [facility] Comment on above: Performed By: #### L [id number] ####[facility] ([facility])[address] [place] [address] Clarity (U) Turbid Abnormal Clear [facility] Comment on above: Performed By: #### L [id number] ####[facility] ([facility])[address] [place] [address] Color (U) Yellow Normal Colorless, Yellow, Light-Yellow [facility] Comment on above: Performed By: #### L [id number] ####[facility] ([facility])[address] [place] [address] GLUCOSE (MG/DL) IN URINE Normal Normal Normal [facility] Comment on above: Performed By: #### L [id number] ####[facility] ([facility])[address] [place] [address] HEMOGLOBIN PRESENCE IN URINE Moderate Abnormal Negative [facility] Comment on above: Performed By: #### L [id number] ####[facility] ([facility])[address] [place] [address] Ketones Ql (U) Negative Normal Negative [facility] Comment on above: Performed By: #### L [id number] ####[facility] ([facility])[address] [place] [address] LEUKOCYTE ESTERASE PRESENCE IN URINE BY TEST STRIP Large Abnormal Negative [facility] Comment on above: Performed By: #### L [id number] ####[facility] ([facility])[address] [place] [address] MUCUS (#/LPF) IN URINE SEDIMENT Few Normal None Seen, Occasional, Few [facility] Comment on above: Performed By: #### L [id number] ####[facility] ([facility])[address] [place] [address] NITRITE PRESENCE IN URINE Negative Normal Negative [facility] Comment on above: Performed By: #### L [id number] ####[facility] ([facility])[address] [place] [address] pH (U) 5.5 [pH] Normal 5.0-8.0 [facility] Comment on above: Performed By: #### L [id number] ####[facility] ([facility])[address] [place] [address] Protein (U) [Mass/Vol] Negative Normal Negative [facility] Comment on above: Performed By: #### L [id number] ####[facility] ([facility])[address] [place] [address] RBC (#/HPF) IN URINE SEDIMENT >20 Abnormal None Seen, 0-2 [facility] Comment on above: Performed By: #### L [id number] ####[facility] ([facility])[address] [place] [address] Specific gravity (U) [Rel density] 1.012 Normal 1.010-1.030 [facility] Comment on above: Performed By: #### L [id number] ####[facility] ([facility])[address] [place] [address] SQUAMOUS EPITHELIAL CELLS (#/LPF) IN URINE SEDIMENT Many Abnormal None Seen, Occasional, Few [facility] Comment on above: Performed By: #### L [id number] ####[facility] ([facility])[address] [place] [address] UROBILINOGEN (MG/DL) IN URINE Normal Normal Normal [facility] Comment on above: Performed By: #### L [id number] ####[facility] ([facility])[address] [address] WBC (LEUKOCYTE) (#/HPF) IN URINE SEDIMENT >50 Abnormal None Seen, 0-2 [facility] Comment on above: Performed By: #### L [id number] ####[facility] ([facility])[address] [address] WBC (LEUKOCYTE) CLUMPS (#/HPF) IN URINE SEDIMENT Present Abnormal None Seen [facility] Comment on above: Performed By: #### L [id number] ####[facility] ([facility])[address] [place] [address] URINE CULTURE, ROUTINEon Ampicillin [Susc] 2 ug/ml Susceptible [facility] Comment on above: Performed By: #### L [id number] ####[facility] ([facility])[address] [place] [address] Nitrofurantoin [Susc] <=16 Susceptible [facility] Comment on above: Performed By: #### L [id number] ####[facility] [facility] [facility] [address] Vancomycin [Susc] 1 ug/ml Susceptible [facility] Comment on above: Performed By: #### L [id number] ####[facility] ([facility])[address] [place] [address] B-TYPE NATRIURETIC PEPTIDEon 02-29-2024 Natriuretic peptide B (Bld) [Mass/Vol] 524 pg/mL High 0-100 [facility] Comment on above: Performed By: #### L [id number] ####[facility] ([facility])[address] [place] [address] BASIC METABOLIC PANELon 10- Anion gap [Moles/Vol] 10 mmol/L Normal 7-20 [facility] Comment on above: Performed By: #### L [id number] ####[facility] (BEAKER)[address] [place] [address] Calcium [Mass/Vol] 8.6 mg/dL Normal 8.6-10.3 [facility] Comment on above: Performed By: #### L [id number] ####[facility] (BEAKER)[address] [place] [address] Chloride [Moles/Vol] 104 mmol/L Normal 98-107 [facility] Comment on above: Performed By: #### L [id number] ####[facility] (BEAKER)[address] [place] [address] CO2 [Moles/Vol] 30 mmol/L Normal 21-[address] [facility] Comment on above: Performed By: #### L [id number] ####[facility] (BEAKER)[address] [place] [address] Creatinine [Mass/Vol] 0.99 mg/dL Normal 0.70-1.30 [facility] Comment on above: Performed By: #### L [id number] ####[facility] (BEAKER)[address] [place] [address] GLOMERULAR FILTRATION RATE ML/MIN/1.73 SQ M.PREDICTED 78.0 mL/min/1.73m*2 Normal >60.0 [facility] Comment on above: Result Comment: The [facility]???s estimated glomerular filtration rate (eGFR) will no longer include consideration of race in its calculation. The National Kidney Foundation???s eGFR Task Force developed new recommendations for the estimation of the glomerular filtration rate in the [place] They recommend immediate implementation of the new equation refit without the race variable in all laboratories because the calculation does not include race. In addition to not including race in the calculation and reporting, it included diversity in its development, and has acceptable performance characteristics and potential consequences that do not disproportionately affect any one group of individuals. Performed By: #### L [id number] ####[facility] (BEAKER)[address] [place] [address] Glucose [Mass/Vol] 134 mg/dL High 70-100 [facility] Comment on above: Performed By: #### L [id number] ####[facility] (BEAKER)[address] [place] [address] Potassium [Moles/Vol] 3.4 mmol/L Low 3.5-5.1 [facility] Comment on above: Performed By: #### L [id number] ####[facility] (BEAKER)[address] [place] [address] Sodium [Moles/Vol] 141 mmol/L Normal 136-145 [facility] Comment on above: Performed By: #### L [id number] ####[facility] (BEAKER)[address] [place] [address] Urea nitrogen [Mass/Vol] 24 mg/dL Normal 7-25 [facility] Comment on above: Performed By: #### L [id number] ####[facility] (BEAKER)[address] [place] [address] UREA NITROGEN/CREATININE (MASS RATIO) IN SER/PLAS 24.2 Normal [facility] Comment on above: Performed By: #### L [id number] ####[facility] (BEAKER)[address] [place] [address] Anion gap [Moles/Vol] 10 mmol/L Normal 7-20 [facility] Comment on above: Performed By: #### L [id number] ####[facility] (BEAKER)[address] [place] [address] Calcium [Mass/Vol] 8.4 mg/dL Low 8.6-10.3 [facility] Comment on above: Performed By: #### L [id number] ####[facility] (BEAKER)[address] [place] [address] Chloride [Moles/Vol] 105 mmol/L Normal 98-107 [facility] Comment on above: Performed By: #### L [id number] ####[facility] (BEAKER)[address] [place] [address] CO2 [Moles/Vol] 28 mmol/L Normal 21-[address] [facility] Comment on above: Performed By: #### L [id number] ####[facility] (BEAKER)[address] [place] [address] Creatinine [Mass/Vol] 1.06 mg/dL Normal 0.70-1.30 [facility] Comment on above: Performed By: #### L [id number] ####[facility] (BEAKER)[address] [place] [address] GLOMERULAR FILTRATION RATE ML/MIN/1.73 SQ M.PREDICTED 71.8 mL/min/1.73m*2 Normal >60.0 [facility] Comment on above: Result Comment: The [facility]???s estimated glomerular filtration rate (eGFR) will no longer include consideration of race in its calculation. The National Kidney Foundation???s eGFR Task Force developed new recommendations for the estimation of the glomerular filtration rate in the [place] They recommend immediate implementation of the new equation refit without the race variable in all laboratories because the calculation does not include race. In addition to not including race in the calculation and reporting, it included diversity in its development, and has acceptable performance characteristics and potential consequences that do not disproportionately affect any one group of individuals. Performed By: #### L [id number] ####[facility] (BEAKER)[address] [place] [address] Glucose [Mass/Vol] 141 mg/dL High 70-100 [facility] Comment on above: Performed By: #### L [id number] ####[facility] (BEAKER)[address] [place] [address] Potassium [Moles/Vol] 3.5 mmol/L Normal 3.5-5.1 [facility] Comment on above: Performed By: #### L [id number] ####[facility] (BEAKER)[address] [place] [address] Sodium [Moles/Vol] 139 mmol/L Normal 136-145 [facility] Comment on above: Performed By: #### L [id number] ####[facility] ([facility])[address] [place] [address] Urea nitrogen [Mass/Vol] 23 mg/dL Normal 7-25 [facility] Comment on above: Performed By: #### L [id number] ####[facility] ([facility])[address] [place] [address] UREA NITROGEN/CREATININE (MASS RATIO) IN SER/PLAS 21.7 Normal [facility] Comment on above: Performed By: #### L [id number] ####[facility] ([facility])[address] [place] [address] CBC WITH AUTO DIFFERENTIALon 02-29-2024 Basophils (Bld) [#/Vol] 0.01 10*3/uL Normal 0.00-0.20 [facility] Comment on above: Performed By: #### L [id number] ####[facility] ([facility])[address] [place] [address] Basophils/100 WBC (Bld) 0.2 % Normal 0.0-1.0 [facility] Comment on above: Performed By: #### L [id number] ####[facility] ([facility])[address] [place] [address] Eosinophils (Bld) [#/Vol] 0.00 10*3/uL Normal 0.00-0.50 [facility] Comment on above: Performed By: #### L [id number] ####[facility] ([facility])[address] [place] [address] Eosinophils/100 WBC (Bld) 0.0 % Normal 0.0-6.0 [facility] Comment on above: Performed By: #### L [id number] ####[facility] ([facility])[address] [place] [address] Erythrocyte distribution width (RBC) [Ratio] 12.8 % Normal 11.5-15.0 [facility] Comment on above: Performed By: #### L [id number] ####[facility] (BEAKER)[address] [place] [address] ERYTHROCYTE MEAN CORPUSCULAR HEMOGLOBIN CONCENTRATION (G/DL) BY AUTOMATED 32.0 g/dL Normal 32.0-35.0 [facility] Comment on above: Performed By: #### L [id number] ####[facility] ([facility])[address] [place] [address] Hematocrit (Bld) [Volume fraction] 38.7 % Low 39.0-55.0 [facility] Comment on above: Performed By: #### L [id number] ####[facility] ([facility])[address] [place] [address] Hemoglobin (Bld) [Mass/Vol] 12.4 g/dL Low 13.0-17.0 [facility] Comment on above: Performed By: #### L [id number] ####[facility] ([facility])[address] [place] [address] Immature granulocytes (Bld) [#/Vol] 0.04 10*3/uL Normal 0.00-0.20 [facility] Comment on above: Performed By: #### L [id number] ####[facility] ([facility])[address] [place] [address] Immature granulocytes/100 WBC (Bld) 0.7 % Normal 0.0-1.0 [facility] Comment on above: Performed By: #### L [id number] ####[facility] ([facility])[address] [place] [address] IMMATURE PLATELET FRACTION % 4.9 % Normal 0.8-6.3 [facility] Comment on above: Performed By: #### L [id number] ####[facility] ([facility])[address] [place] [address] Lymphocytes (Bld) [#/Vol] 0.38 10*3/uL Low 1.20-4.00 [facility] Comment on above: Performed By: #### L [id number] ####[facility] (BEAKER)[address] [place] [address] Lymphocytes/100 WBC (Bld) 6.2 % Low 20.0-45.0 [facility] Comment on above: Performed By: #### L [id number] ####[facility] (BEAKER)[address] [place] [address] MCH (RBC) [Entitic mass] 32.0 pg Normal 27.0-33.0 [facility] Comment on above: Performed By: #### L [id number] ####[facility] (BEAKER)[address] [place] [address] MCV (RBC) [Entitic vol] 100.0 fL High 82.0-98.0 [facility] Comment on above: Performed By: #### L [id number] ####[facility] ([facility])[address] [place] [address] Monocytes (Bld) [#/Vol] 0.35 10*3/uL Normal 0.10-1.00 [facility] Comment on above: Performed By: #### L [id number] ####[facility] (BEAKER)[address] [place] [address] Monocytes/100 WBC (Bld) 5.7 % Normal 5.0-12.0 [facility] Comment on above: Performed By: #### L [id number] ####[facility] (BE[facility]ER)[address] [place] [address] Neutrophils (Bld) [#/Vol] 5.36 10*3/uL Normal 1.60-7.60 [facility] Comment on above: Performed By: #### L [id number] ####[facility] (BEAKER)[address] [place] [address] Neutrophils/100 WBC (Bld) 87.2 % High 40.0-72.0 [facility] Comment on above: Performed By: #### L [id number] ####[facility] (BEAKER)[address] [place] [address] NRBC (PER 100 WBCS) BY AUTOMATED COUNT 0.0 % Normal 0 [facility] Comment on above: Performed By: #### L [id number] ####[facility] ([facility])[address] [place] [address] PLATELETS (10*3/UL) IN BLOOD AUTOMATED COUNT 122 10*3/uL Low 150-400 [facility] Comment on above: Performed By: #### L [id number] ####[facility] ([facility])[address] [place] [address] RBC (Bld) [#/Vol] 3.87 10*6/uL Low 4.20-5.70 [facility] Comment on above: Performed By: #### L [id number] ####[facility] ([facility])[address] [place] [address] WBC (Bld) [#/Vol] 6.14 10*3/uL Normal 4.00-10.60 [facility] Comment on above: Performed By: #### L [id number] ####[facility] ([facility])[address] [place] [address] CONSULTon 02-29-2024 CONSULT Normal [facility] LEGIONELLA ANTIGEN, URINEon 02-29-2024 LEGIONELLA AG, UR Negative Normal NEG [facility] Comment on above: Result Comment: L. p neumophila serogroup 1 antigen not detected.A negative result does not exclude infection with Leginella pnemophila serogroup 1 nor does it rule out other microbial-caused respiratory infections of disease caused by other serogroups of Legionella pneumophila.Test Performed by [employer] [facility] [place] [address] - Hpgqwuoi 03/01/2024 15:07 Performed By: #### L [id number] ####[employer] [facility] [id number] [place] [address] MAGNESIUMon 02-29-2024 Magnesium [Mass/Vol] 2.0 mg/dL Normal 1.9-2.7 [facility] Comment on above: Performed By: #### L [id number] ####[facility] ([facility])[address] [place] [address] Magnesium [Mass/Vol] 1.9 mg/dL Normal 1.9-2.7 [facility] Comment on above: Performed By: #### L [id number] ####[facility] ([facility])[address] [place] [address] PHOSPHORUSon 02-29-2024 Magnesium [Mass/Vol] 2.4 mg/dL Low 2.5-5.0 [facility] Comment on above: Performed By: #### L [id number] ####[facility] ([facility])[address] [place] [address] RESPIRATORY VIRUS PCR PANELo n 02-29-2024 ADENOVIRUS DETECTION BY PCR Not detected Normal Not Detected [facility] Comment on above: Order Comment: Testi ng methodology is a multiplexed nucleic acid test intended for the simultaneous qualitative detection and differentiation of nucleic acids from multiple viral and bacterial respiratory organisms in nasopharyngeal swabs (FIRE EQUIPMENT OPERATOR). Performed By: #### L [id number] ####[facility] ([facility])[address] [place] [address] B. PARAPERTUSSIS DNA Not detected Normal Not Detected [facility] Comment on above: Order Comment: Testi ng methodology is a multiplexed nucleic acid test intended for the simultaneous qualitative detection and differentiation of nucleic acids from multiple viral and bacterial respiratory organisms in nasopharyngeal swabs (FIRE EQUIPMENT OPERATOR). Performed By: #### L [id number] ####[facility] ([facility])[address] [place] [address] BORDETELLA PERTUSSIS DNA PRESENCE IN UNSPECIFIED SPECIMEN BY [place]* Not detected Normal Not Detected [facility] Comment on above: Order Comment: Testi ng methodology is a multiplexed nucleic acid test intended for the simultaneous qualitative detection and differentiation of nucleic acids from multiple viral and bacterial respiratory organisms in nasopharyngeal swabs (FIRE EQUIPMENT OPERATOR). Performed By: #### L [id number] ####[facility] ([facility])[address] [place] [address] CHLAMYDOPHILA PNEUMONIAE Not detected Normal Not Detected [facility] Comment on above: Order Comment: Testi ng methodology is a multiplexed nucleic acid test intended for the simultaneous qualitative detection and differentiation of nucleic acids from multiple viral and bacterial respiratory organisms in nasopharyngeal swabs (FIRE EQUIPMENT OPERATOR). Performed By: #### L [id number] ####[facility] ([facility])[address] [place] [address] CORONAVIRUS 229E Not detected Normal Not Detected [facility] Comment on above: Order Comment: Testi ng methodology is a multiplexed nucleic acid test intended for the simultaneous qualitative detection and differentiation of nucleic acids from multiple viral and bacterial respiratory organisms in nasopharyngeal swabs (FIRE EQUIPMENT OPERATOR). Performed By: #### L [id number] ####[facility] ([facility])[address] [place] [address] CORONAVIRUS [id number] Not detected Normal Not Detected [facility] Comment on above: Order Comment: Testi ng methodology is a multiplexed nucleic acid test intended for the simultaneous qualitative detection and differentiation of nucleic acids from multiple viral and bacterial respiratory organisms in nasopharyngeal swabs (FIRE EQUIPMENT OPERATOR). Performed By: #### L [id number] ####[facility] ([facility])[address] [place] [address] CORONAVIRUS [id number] Not detected Normal Not Detected [facility] Comment on above: Order Comment: Testi ng methodology is a multiplexed nucleic acid test intended for the simultaneous qualitative detection and differentiation of nucleic acids from multiple viral and bacterial respiratory organisms in nasopharyngeal swabs (FIRE EQUIPMENT OPERATOR). Performed By: #### L [id number] ####[facility] ([facility])[address] [place] [address] CORONAVIRUS [id number] Not detected Normal Not Detected [facility] Comment on above: Order Comment: Testi ng methodology is a multiplexed nucleic acid test intended for the simultaneous qualitative detection and differentiation of nucleic acids from multiple viral and bacterial respiratory organisms in nasopharyngeal swabs (FIRE EQUIPMENT OPERATOR). Performed By: #### L [id number] ####[facility] ([facility])[address] [place] [address] HUMAN METAPNEUMOVIRUS Not detected Normal Not Detected [facility] Comment on above: Order Comment: Testi ng methodology is a multiplexed nucleic acid test intended for the simultaneous qualitative detection and differentiation of nucleic acids from multiple viral and bacterial respiratory organisms in nasopharyngeal swabs (FIRE EQUIPMENT OPERATOR). Performed By: #### L [id number] ####[facility] ([facility])[address] [place] [address] HUMAN RHINOVIRUS+ENTEROVI NAUN Not detected Normal Not Detected [facility] Comment on above: Order Comment: Testi ng methodology is a multiplexed nucleic acid test intended for the simultaneous qualitative detection and differentiation of nucleic acids from multiple viral and bacterial respiratory organisms in nasopharyngeal swabs (FIRE EQUIPMENT OPERATOR). Performed By: #### L [id number] ####[facility] ([facility])[address] [place] [address] INFLUENZA A Not detected Normal Not Detected [facility] Comment on above: Order Comment: Testi ng methodology is a multiplexed nucleic acid test intended for the simultaneous qualitative detection and differentiation of nucleic acids from multiple viral and bacterial respiratory organisms in nasopharyngeal swabs (FIRE EQUIPMENT OPERATOR). Performed By: #### L [id number] ####[facility] ([facility])[address] [place] [address] INFLUENZA B Not detected Normal Not Detected [facility] Comment on above: Order Comment: Testi ng methodology is a multiplexed nucleic acid test intended for the simultaneous qualitative detection and differentiation of nucleic acids from multiple viral and bacterial respiratory organisms in nasopharyngeal swabs (FIRE EQUIPMENT OPERATOR). Performed By: #### L [id number] ####[facility] ([facility])[address] [place] [address] MYCOPLASMA PNEUMONIAE Not detected Normal Not Detected [facility] Comment on above: Order Comment: Testi ng methodology is a multiplexed nucleic acid test intended for the simultaneous qualitative detection and differentiation of nucleic acids from multiple viral and bacterial respiratory organisms in nasopharyngeal swabs (FIRE EQUIPMENT OPERATOR). Performed By: #### L [id number] ####[facility] ([facility])[address] [place] [address] PARAINFLUENZA 1 Not detected Normal Not Detected [facility] Comment on above: Order Comment: Testi ng methodology is a multiplexed nucleic acid test intended for the simultaneous qualitative detection and differentiation of nucleic acids from multiple viral and bacterial respiratory organisms in nasopharyngeal swabs (FIRE EQUIPMENT OPERATOR). Performed By: #### L [id number] ####[facility] ([facility])[address] [place] [address] PARAINFLUENZA 2 Not detected Normal Not Detected [facility] Comment on above: Order Comment: Testi ng methodology is a multiplexed nucleic acid test intended for the simultaneous qualitative detection and differentiation of nucleic acids from multiple viral and bacterial respiratory organisms in nasopharyngeal swabs (FIRE EQUIPMENT OPERATOR). Performed By: #### L [id number] ####[facility] ([facility])[address] [place] [address] PARAINFLUENZA 3 Not detected Normal Not Detected [facility] Comment on above: Order Comment: Testi ng methodology is a multiplexed nucleic acid test intended for the simultaneous qualitative detection and differentiation of nucleic acids from multiple viral and bacterial respiratory organisms in nasopharyngeal swabs (FIRE EQUIPMENT OPERATOR). Performed By: #### L [id number] ####[facility] ([facility])[address] [place] [address] PARAINFLUENZA 4 Not detected Normal Not Detected [facility] Comment on above: Order Comment: Testi ng methodology is a multiplexed nucleic acid test intended for the simultaneous qualitative detection and differentiation of nucleic acids from multiple viral and bacterial respiratory organisms in nasopharyngeal swabs (FIRE EQUIPMENT OPERATOR). Performed By: #### L [id number] ####[facility] ([facility])[address] [place] [address] RESP SYNCYTIAL VIRUS Not detected Normal Not Detected [facility] Comment on above: Order Comment: Testi ng methodology is a multiplexed nucleic acid test intended for the simultaneous qualitative detection and differentiation of nucleic acids from multiple viral and bacterial respiratory organisms in nasopharyngeal swabs (FIRE EQUIPMENT OPERATOR). Performed By: #### L [id number] ####[facility] ([facility])[address] [place] [address] SARS-CoV-2 (COVID-19) RNA TAI+probe Ql (Unsp spec) Not detected Normal Not Detected [facility] Comment on above: Order Comment: Testi ng methodology is a multiplexed nucleic acid test intended for the simultaneous qualitative detection and differentiation of nucleic acids from multiple viral and bacterial respiratory organisms in nasopharyngeal swabs (FIRE EQUIPMENT OPERATOR). Performed By: #### L [id number] ####[facility] ([facility])[address] [place] [address] ANTI-XA (HEPARIN LEVEL)on 10 -16-2024 HEPARIN UNFRACTIONATED (U/ML) IN PPP BY CHROMOGENIC METHOD <0.10 Invalid Interpretation Code 0.3-0.7 [facility] Comment on above: Order Comment: Check anti-Xa level every 6 hours while on heparin infusion, or per protocol. Result Comment: Ricarda roxaban and Apixaban will interfere with the anti Xa assay used to monitor UFH and LMWH. Performed By: #### L [id number] ####[facility] ([facility])[address] [place] [address] BASIC METABOLIC PANELon 02-12 Anion gap [Moles/Vol] 10 mmol/L Normal 7-20 [facility] Comment on above: Performed By: #### L [id number] ####[facility] ([facility])[address] [place] [address] Calcium [Mass/Vol] 8.0 mg/dL Low 8.6-10.3 [facility] Comment on above: Performed By: #### L [id number] ####[facility] ([facility])[address] [place] [address] Chloride [Moles/Vol] 102 mmol/L Normal 98-107 [facility] Comment on above: Performed By: #### L [id number] ####[facility] ([facility])[address] [place] [address] CO2 [Moles/Vol] 30 mmol/L Normal 21-[address] [facility] Comment on above: Performed By: #### L [id number] ####[facility] ([facility])[address] [place] [address] Creatinine [Mass/Vol] 1.22 mg/dL Normal 0.70-1.30 [facility] Comment on above: Performed By: #### L [id number] ####[facility] ([facility])[address] [place] [address] GLOMERULAR FILTRATION RATE ML/MIN/1.73 SQ M.PREDICTED 60.7 mL/min/1.73m*2 Normal >60.0 [facility] Comment on above: Result Comment: The [facility]???s estimated glomerular filtration rate (eGFR) will no longer include consideration of race in its calculation. The National Kidney Foundation???s eGFR Task Force developed new recommendations for the estimation of the glomerular filtration rate in the [place] They recommend immediate implementation of the new equation refit without the race variable in all laboratories because the calculation does not include race. In addition to not including race in the calculation and reporting, it included diversity in its development, and has acceptable performance characteristics and potential consequences that do not disproportionately affect any one group of individuals. Performed By: #### L [id number] ####[facility] ([facility])[address] [place] [address] Glucose [Mass/Vol] 94 mg/dL Normal 70-100 [facility] Comment on above: Performed By: #### L [id number] ####[facility] ([facility])[address] [place] [address] Potassium [Moles/Vol] 3.0 mmol/L Low 3.5-5.1 [facility] Comment on above: Performed By: #### L [id number] ####[facility] ([facility])[address] [place] [address] Sodium [Moles/Vol] 139 mmol/L Normal 136-145 [facility] Comment on above: Performed By: #### L [id number] ####[facility] ([facility])[address] [place] [address] Urea nitrogen [Mass/Vol] 16 mg/dL Normal 7-25 [facility] Comment on above: Performed By: #### L [id number] ####[facility] ([facility])[address] [place] [address] UREA NITROGEN/CREATININE (MASS RATIO) IN SER/PLAS 13.1 Normal [facility] Comment on above: Performed By: #### L [id number] ####[facility] ([facility])[address] [place] [address] CBC WITH AUTO DIFFERENTIALon 02-28-2024 Basophils (Bld) [#/Vol] 0.03 10*3/uL Normal 0.00-0.20 [facility] Comment on above: Performed By: #### L [id number] ####[facility] (BEAKER)[address] [place] [address] Basophils/100 WBC (Bld) 0.3 % Normal 0.0-1.0 [facility] Comment on above: Performed By: #### L [id number] ####[facility] ([facility]ER)[address] [place] [address] Eosinophils (Bld) [#/Vol] 0.00 10*3/uL Normal 0.00-0.50 [facility] Comment on above: Performed By: #### L [id number] ####[facility] ([facility])[address] [place] [address] Eosinophils/100 WBC (Bld) 0.0 % Normal 0.0-6.0 [facility] Comment on above: Performed By: #### L [id number] ####[facility] ([facility])[address] [place] [address] Erythrocyte distribution width (RBC) [Ratio] 13.0 % Normal 11.5-15.0 [facility] Comment on above: Performed By: #### L [id number] ####[facility] ([facility])[address] [place] [address] ERYTHROCYTE MEAN CORPUSCULAR HEMOGLOBIN CONCENTRATION (G/DL) BY AUTOMATED 32.3 g/dL Normal 32.0-35.0 [facility] Comment on above: Performed By: #### L [id number] ####[facility] ([facility])[address] [place] [address] Hematocrit (Bld) [Volume fraction] 37.5 % Low 39.0-55.0 [facility] Comment on above: Performed By: #### L [id number] ####[facility] ([facility])[address] [place] [address] Hemoglobin (Bld) [Mass/Vol] 12.1 g/dL Low 13.0-17.0 [facility] Comment on above: Performed By: #### L [id number] ####[facility] ([facility])[address] [place] [address] Immature granulocytes (Bld) [#/Vol] 0.06 10*3/uL Normal 0.00-0.20 [facility] Comment on above: Performed By: #### L [id number] ####[facility] ([facility])[address] [place] [address] Immature granulocytes/100 WBC (Bld) 0.6 % Normal 0.0-1.0 [facility] Comment on above: Performed By: #### L [id number] ####[facility] ([facility])[address] [place] [address] Lymphocytes (Bld) [#/Vol] 0.56 10*3/uL Low 1.20-4.00 [facility] Comment on above: Performed By: #### L [id number] ####[facility] ([facility])[address] [place] [address] Lymphocytes/100 WBC (Bld) 6.1 % Low 20.0-45.0 [facility] Comment on above: Performed By: #### L [id number] ####[facility] ([facility])[address] [place] [address] MCH (RBC) [Entitic mass] 32.3 pg Normal 27.0-33.0 [facility] Comment on above: Performed By: #### L [id number] ####[facility] ([facility])[address] [place] [address] MCV (RBC) [Entitic vol] 100.0 fL High 82.0-98.0 [facility] Comment on above: Performed By: #### L [id number] ####[facility] ([facility])[address] [place] [address] Monocytes (Bld) [#/Vol] 1.19 10*3/uL High 0.10-1.00 [facility] Comment on above: Performed By: #### L [id number] ####[facility] ([facility]ER)[address] [place] [address] Monocytes/100 WBC (Bld) 12.9 % High 5.0-12.0 [facility] Comment on above: Performed By: #### L [id number] ####[facility] ([facility])[address] [place] [address] Neutrophils (Bld) [#/Vol] 7.41 10*3/uL Normal 1.60-7.60 [facility] Comment on above: Performed By: #### L [id number] ####[facility] ([facility])[address] [place] [address] Neutrophils/100 WBC (Bld) 80.1 % High 40.0-72.0 [facility] Comment on above: Performed By: #### L [id number] ####[facility] ([facility])[address] [place] [address] NRBC (PER 100 WBCS) BY AUTOMATED COUNT 0.0 % Normal 0 [facility] Comment on above: Performed By: #### L [id number] ####[facility] ([facility]ER)[address] [place] [address] PLATELETS (10*3/UL) IN BLOOD AUTOMATED COUNT 146 10*3/uL Low 150-400 [facility] Comment on above: Performed By: #### L [id number] ####[facility] ([facility]ER)[address] [place] [address] RBC (Bld) [#/Vol] 3.75 10*6/uL Low 4.20-5.70 [facility] Comment on above: Performed By: #### L [id number] ####[facility] ([facility]ER)[address] [place] [address] WBC (Bld) [#/Vol] 9.25 10*3/uL Normal 4.00-10.60 [facility] Comment on above: Performed By: #### L [id number] ####[facility] ([facility]ER)[address] [place] [address] MAGNESIUMon 02-28-2024 Magnesium [Mass/Vol] 1.5 mg/dL Low 1.9-2.7 [facility] Comment on above: Performed By: #### L [id number] ####[facility] ([facility])[address] [place] [address] PHOSPHORUSon 02-28-2024 Magnesium [Mass/Vol] 2.7 mg/dL Normal 2.5-5.0 [facility] Comment on above: Performed By: #### L [id number] ####[facility] ([facility])[address] [place] [address] PROCALCITONIN TESTon 024 PROCALCITONIN IN BLOOD 3.55 ng/mL Critically high 0.00-0.10 [facility] Comment on above: Result Comment: Susp ected Lower Respiratory Tract Infection:0.1-0.25 ng/mL - Low likelihood for bacterial infection;Antibiotics discouraged.*>0.25 ng/mL - Increased likelihood bacterial infection;Antibiotics encouraged. Suspected Sepsis: Strongly consider initiating antibiotics in all unstable patients.0.1-0.5 ng/mL - Low likelihood for sepsis; Antibiotics discouraged.*>0.5 ng/mL - Increased likelihood sepsis; Antibiotics encouraged.>2.0 ng/mL - High risk of sepsis/septic shock; Antibiotics strongly encouraged. *Recommend retesting PCT within 6-12 hours if clinically indicated and initial PCT<0.5ng/mL Performed By: #### L [id number] ####[facility] ([facility]ER)[address] [place] [address] URINALYSIS WITH MICROSCOPICo n 02-28-2024 BILIRUBIN, TOTAL PRESENCE IN URINE Negative Normal Negative [facility] Comment on above: Performed By: #### L [id number] ####[facility] ([facility])[address] [place] [address] Clarity (U) Cloudy Abnormal Clear [facility] Comment on above: Performed By: #### L [id number] ####[facility] ([facility])[address] [place] [address] Color (U) Yellow Normal Colorless, Yellow, Light-Yellow [facility] Comment on above: Performed By: #### L [id number] ####[facility] ([facility])[address] [place] [address] GLUCOSE (MG/DL) IN URINE Normal Normal Normal [facility] Comment on above: Performed By: #### L [id number] ####[facility] ([facility])[address] [place] [address] HEMOGLOBIN PRESENCE IN URINE Moderate Abnormal Negative [facility] Comment on above: Performed By: #### L [id number] ####[facility] ([facility])[address] [place] [address] Ketones Ql (U) Negative Normal Negative [facility] Comment on above: Performed By: #### L [id number] ####[facility] ([facility])[address] [place] [address] LEUKOCYTE ESTERASE PRESENCE IN URINE BY TEST STRIP Large Abnormal Negative [facility] Comment on above: Performed By: #### L [id number] ####[facility] ([facility])[address] [place] [address] MUCUS (#/LPF) IN URINE SEDIMENT Occasional Normal None Seen, Occasional, Few [facility] Comment on above: Performed By: #### L [id number] ####[facility] ([facility])[address] [place] [address] NITRITE PRESENCE IN URINE Negative Normal Negative [facility] Comment on above: Performed By: #### L [id number] ####[facility] ([facility]ER)[address] [place] [address] pH (U) 6.0 [pH] Normal 5.0-8.0 [facility] Comment on above: Performed By: #### L [id number] ####[facility] ([facility]ER)[address] [place] [address] Protein (U) [Mass/Vol] 30 mg/dL Abnormal Negative [facility] Comment on above: Performed By: #### L [id number] ####[facility] ([facility]ER)[address] [place] [address] RBC (#/HPF) IN URINE SEDIMENT 11-20 Abnormal None Seen, 0-2 [facility] Comment on above: Performed By: #### L [id number] ####[facility] ([facility]ER)[address] [place] [address] Specific gravity (U) [Rel density] 1.018 Normal 1.010-1.030 [facility] Comment on above: Performed By: #### L [id number] ####[facility] ([facility]ER)[address] [place] [address] SQUAMOUS EPITHELIAL CELLS (#/LPF) IN URINE SEDIMENT Few Normal None Seen, Occasional, Few [facility] Comment on above: Performed By: #### L [id number] ####[facility] ([facility])[address] [place] [address] UROBILINOGEN (MG/DL) IN URINE Normal Normal Normal [facility] Comment on above: Performed By: #### L [id number] ####[facility] ([facility]ER)[address] [place] [address] WBC (LEUKOCYTE) (#/HPF) IN URINE SEDIMENT >50 Abnormal None Seen, 0-2 [facility] Comment on above: Performed By: #### L [id number] ####[facility] ([facility]ER)[address] [place] [address] WBC (LEUKOCYTE) CLUMPS (#/HPF) IN URINE SEDIMENT Present Abnormal None Seen [facility] Comment on above: Performed By: #### L [id number] ####[facility] ([facility])[address] [place] [address] YEAST, BUDDING (#/HPF) IN URINE Occasional Abnormal None Seen [facility] Comment on above: Performed By: #### L [id number] ####[facility] (BE[facility]ER)[address] [place] [address] VENOUS BLOOD GAS WITH IONIZE D CALCIUMon 02-28-2024 Base excess Calc (BldV) [Moles/Vol] 3.8 mmol/L Normal [facility] Comment on above: Order Comment: Bipap 16/8 RR 14 FiO2 75% Performed By: #### L [id number] ####[facility] [id number] [place] [address] [facility] CALCIUM IONIZED (MMOL/L) IN BLOOD 1.06 mmol/L Low 1.15-1.33 [facility] Comment on above: Order Comment: Bipap 16/8 RR 14 FiO2 75% Performed By: #### L [id number] ####[facility]PIRATORY [id number] [place] [address] [place] CO2 (BldV) [Partial pressure] 46 mm[Hg] Normal 40-50 [facility] Comment on above: Order Comment: Bipap 16/8 RR 14 FiO2 75% Performed By: #### L [id number] ####[facility]PIRATORY [id number] [place] [address] [place] HCO3 (Bld) [Moles/Vol] 29.2 mmol/L Normal [facility] Comment on above: Order Comment: Bipap 16/8 RR 14 FiO2 75% Performed By: #### L [id number] ####[facility] RESPIRATORY [id number] [place] [address] [place] Oxygen (BldV) [Partial pressure] 47 mm[Hg] High 35-45 [facility] Comment on above: Order Comment: Bipap 16/8 RR 14 FiO2 75% Performed By: #### L [id number] ####[facility] RESPIRATORY [id number] [place] [address] [place] OXYGEN SATURATION (%) IN VENOUS BLOOD 78.8 % High 65.0-75.0 [facility] Comment on above: Order Comment: Bipap 16/8 RR 14 FiO2 75% Performed By: #### L [id number] ####[facility] RESPIRATORY [id number] [place] [address] [facility] PH OF VENOUS BLOOD 7.41 Normal 7.31-7.41 [facility] Comment on above: Order Comment: Bipap 16/8 RR 14 FiO2 75% Performed By: #### L [id number] ####[facility] RESPIRATORY [id number] [place] [address] [place] 30on 02-27-2024 30 Normal [facility] 30 Normal [facility] ANESon 02-27-2024 ANES Normal [facility] ANTI-XA (HEPARIN LEVEL)on HEPARIN UNFRACTIONATED (U/ML) IN PPP BY CHROMOGENIC METHOD 0.51 IU/mL Normal 0.3-0.7 [facility] Comment on above: Result Comment: Arcanum roxaban and Apixaban will interfere with the anti Xa assay used to monitor UFH and LMWH. Performed By: #### L [id number] ####[facility] ([facility])[address] [place] [address] HEPARIN UNFRACTIONATED (U/ML) IN PPP BY CHROMOGENIC METHOD 0.28 IU/mL Low 0.3-0.7 [facility] Comment on above: Order Comment: Check anti-Xa level every 6 hours while on heparin infusion, or per protocol. Result Comment: Arcanum roxaban and Apixaban will interfere with the anti Xa assay used to monitor UFH and LMWH. Performed By: #### L [id number] ####[facility] (BEAKER)[address] [place] [address] HEPARIN UNFRACTIONATED (U/ML) IN PPP BY CHROMOGENIC METHOD 0.21 IU/mL Low 0.3-0.7 [facility] Comment on above: Result Comment: Ricarda roxaban and Apixaban will interfere with the anti Xa assay used to monitor UFH and LMWH. Performed By: #### L [id number] ####[facility] ([facility])[address] [place] [address] BASIC METABOLIC PANELon 10- Anion gap [Moles/Vol] 9 mmol/L Normal 7-20 [facility] Comment on above: Performed By: #### L [id number] ####[facility] ([facility])[address] [place] [address] Calcium [Mass/Vol] 8.4 mg/dL Low 8.6-10.3 [facility] Comment on above: Performed By: #### L [id number] ####[facility] ([facility])[address] [place] [address] Chloride [Moles/Vol] 105 mmol/L Normal 98-107 [facility] Comment on above: Performed By: #### L [id number] ####[facility] ([facility])[address] [place] [address] CO2 [Moles/Vol] 27 mmol/L Normal 21-[address] [facility] Comment on above: Performed By: #### L [id number] ####[facility] ([facility])[address] [place] [address] Creatinine [Mass/Vol] 0.88 mg/dL Normal 0.70-1.30 [facility] Comment on above: Performed By: #### L [id number] ####[facility] ([facility])[address] [place] [address] GLOMERULAR FILTRATION RATE ML/MIN/1.73 SQ M.PREDICTED 88.0 mL/min/1.73m*2 Normal >60.0 [facility] Comment on above: Result Comment: [facility]???s estimated glomerular filtration rate (eGFR) will no longer include consideration of race in its calculation. The National Kidney Foundation???s eGFR Task Force developed new recommendations for the estimation of the glomerular filtration rate in the [place] They recommend immediate implementation of the new equation refit without the race variable in all laboratories because the calculation does not include race. In addition to not including race in the calculation and reporting, it included diversity in its development, and has acceptable performance characteristics and potential consequences that do not disproportionately affect any one group of individuals. Performed By: #### L [id number] ####[facility] ([facility])[address] [place] [address] Glucose [Mass/Vol] 116 mg/dL High 70-100 [facility] Comment on above: Performed By: #### L [id number] ####[facility] ([facility])[address] [place] [address] Potassium [Moles/Vol] 3.8 mmol/L Normal 3.5-5.1 [facility] Comment on above: Performed By: #### L [id number] ####[facility] ([facility])[address] [facility] [place] [address] Sodium [Moles/Vol] 137 mmol/L Normal 136-145 [facility] Comment on above: Performed By: #### L [id number] ####[facility] ([facility])[address] [facility] [place] [address] Urea nitrogen [Mass/Vol] 11 mg/dL Normal 7-25 [facility] Comment on above: Performed By: #### L [id number] ####[facility] ([facility])[address] [place] [address] UREA NITROGEN/CREATININE (MASS RATIO) IN SER/PLAS 12.5 Normal [facility] Comment on above: Performed By: #### L [id number] ####[facility] ([facility])[address] [facility] [place] [address] BLOOD CULTUREon 02-27-2024 Bacteria identified Cx Nom (Bld) No growth at 5 days Normal [facility] Comment on above: Performed By: #### L [id number] ####[facility] ([facility])[address] [facility] [place] [address] CALCIUM, IONIZEDon CALCIUM IONIZED (MMOL/L) IN BLOOD 1.20 mmol/L Normal 1.15-1.33 [facility] Comment on above: Performed By: #### C ALCIUM, IONIZED ####[facility] RESPIRATORY [id number] [place] [address] [place] CBC WITH AUTO DIFFERENTIALon 02-27-2024 Basophils (Bld) [#/Vol] 0.02 10*3/uL Normal 0.00-0.20 [facility] Comment on above: Performed By: #### L [id number] ####[facility] (BEAKER)[address] [place] [address] Basophils/100 WBC (Bld) 0.4 % Normal 0.0-1.0 [facility] Comment on above: Performed By: #### L [id number] ####[facility] ([facility])[address] [place] [address] Eosinophils (Bld) [#/Vol] 0.03 10*3/uL Normal 0.00-0.50 [facility] Comment on above: Performed By: #### L [id number] ####[facility] ([facility])[address] [place] [address] Eosinophils/100 WBC (Bld) 0.7 % Normal 0.0-6.0 [facility] Comment on above: Performed By: #### L [id number] ####[facility] ([facility])[address] [place] [address] Erythrocyte distribution width (RBC) [Ratio] 13.1 % Normal 11.5-15.0 [facility] Comment on above: Performed By: #### L [id number] ####[facility] (BEAKER)[address] [place] [address] ERYTHROCYTE MEAN CORPUSCULAR HEMOGLOBIN CONCENTRATION (G/DL) BY AUTOMATED 31.8 g/dL Low 32.0-35.0 [facility] Comment on above: Performed By: #### L [id number] ####[facility] (BEAKER)[address] [place] [address] Hematocrit (Bld) [Volume fraction] 37.7 % Low 39.0-55.0 [facility] Comment on above: Performed By: #### L [id number] ####[facility] (BEAKER)[address] [place] [address] Hemoglobin (Bld) [Mass/Vol] 12.0 g/dL Low 13.0-17.0 [facility] Comment on above: Performed By: #### L [id number] ####[facility] (BEAKER)[address] [place] [address] Immature granulocytes (Bld) [#/Vol] 0.02 10*3/uL Normal 0.00-0.20 [facility] Comment on above: Performed By: #### L [id number] ####[facility] (BEAKER)[address] [place] [address] Immature granulocytes/100 WBC (Bld) 0.4 % Normal 0.0-1.0 [facility] Comment on above: Performed By: #### L [id number] ####[facility] LAB (BEAKER)[address] [place] [address] IMMATURE PLATELET FRACTION % 3.0 % Normal 0.8-6.3 [facility] Comment on above: Performed By: #### L [id number] ####[facility] LAB (BEAKER)[address] [place] [address] Lymphocytes (Bld) [#/Vol] 0.73 10*3/uL Low 1.20-4.00 [facility] Comment on above: Performed By: #### L [id number] ####[facility] LAB (BEAKER)[address] [place] [address] Lymphocytes/100 WBC (Bld) 16.0 % Low 20.0-45.0 [facility] Comment on above: Performed By: #### L [id number] ####[facility] (BEAKER)[address] [place] [address] MCH (RBC) [Entitic mass] 32.1 pg Normal 27.0-33.0 [facility] Comment on above: Performed By: #### L [id number] ####[facility] (BEAKER)[address] [place] [address] MCV (RBC) [Entitic vol] 100.8 fL High 82.0-98.0 [facility] Comment on above: Performed By: #### L [id number] ####[facility] (BEAKER)[address] [place] [address] Monocytes (Bld) [#/Vol] 0.85 10*3/uL Normal 0.10-1.00 [facility] Comment on above: Performed By: #### L [id number] ####[facility] ([facility])[address] [place] [address] Monocytes/100 WBC (Bld) 18.7 % High 5.0-12.0 [facility] Comment on above: Performed By: #### L [id number] ####[facility] ([facility])[address] [place] [address] Neutrophils (Bld) [#/Vol] 2.90 10*3/uL Normal 1.60-7.60 [facility] Comment on above: Performed By: #### L [id number] ####[facility] ([facility])[address] [place] [address] Neutrophils/100 WBC (Bld) 63.8 % Normal 40.0-72.0 [facility] Comment on above: Performed By: #### L [id number] ####[facility] (BEAKER)[address] [place] [address] NRBC (PER 100 WBCS) BY AUTOMATED COUNT 0.0 % Normal 0 [facility] Comment on above: Performed By: #### L [id number] ####[facility] ([facility])[address] [place] [address] PLATELETS (10*3/UL) IN BLOOD AUTOMATED COUNT 134 10*3/uL Low 150-400 [facility] Comment on above: Performed By: #### L [id number] ####[facility] (BEAKER)[address] [place] [address] RBC (Bld) [#/Vol] 3.74 10*6/uL Low 4.20-5.70 [facility] Comment on above: Performed By: #### L [id number] ####[facility] ([facility])[address] [place] [address] WBC (Bld) [#/Vol] 4.55 10*3/uL Normal 4.00-10.60 [facility] Comment on above: Performed By: #### L [id number] ####[facility] ([facility])[address] [place] [address] HPon 02-27-2024 HP Normal [facility] POTASSIUM, WHOLE BLOODon Potassium [Moles/Vol] 3.4 mmol/L Low 3.5-5.1 [facility] Comment on above: Performed By: #### P OTASSIUM, WHOLE BLOOD ####[facility] [id number] [place] [address] [place] SODIUM, WHOLE BLOODon 2023 SODIUM, WHOLE BLOOD 135 Low 136-145 [facility] Comment on above: Performed By: #### S ODIUM, WHOLE BLOOD ####[facility] [id number] [place] [address] [place] TROPONIN Ion 02-27-2024 Troponin I.cardiac [Mass/Vol] 0.04 ng/mL Normal 0.00-0.04 [facility] Comment on above: Performed By: #### L [id number] ####[facility] ([facility])[address] [place] [address] Troponin I.cardiac [Mass/Vol] 0.02 ng/mL Normal 0.00-0.04 [facility] Comment on above: Performed By: #### L [id number] ####[facility] ([facility])[address] [place] [address] Troponin I.cardiac [Mass/Vol] 0.01 ng/mL Normal 0.00-0.04 [facility] Comment on above: Performed By: #### L [id number] ####[facility] ([facility])[address] [place] [address] Troponin I.cardiac [Mass/Vol] 0.01 ng/mL Normal 0.00-0.04 [facility] Comment on above: Performed By: #### L [id number] ####[facility] ([facility])[address] [place] [address] Troponin I.cardiac [Mass/Vol] 0.02 ng/mL Normal 0.00-0.04 [facility] Comment on above: Performed By: #### L [id number] ####[facility] ([facility])[address] [facility] [place] [address] Troponin I.cardiac [Mass/Vol] 0.01 ng/mL Normal 0.00-0.04 [facility] Comment on above: Performed By: #### L [id number] ####[facility] ([facility])[address] [facility] [place] [address] 30on 02-26-2024 30 The patient is Moderately Stable - Low risk of patient condition declining or worsening The patient's goals for the shift include The clinical goals for the shift include Over the shift, the patient did not make progress toward the following goals. Normal [facility] ANTI-XA (HEPARIN LEVEL)on HEPARIN UNFRACTIONATED (U/ML) IN PPP BY CHROMOGENIC METHOD 0.14 IU/mL Invalid Interpretation Code 0.3-0.7 [facility] Comment on above: Result Comment: Arcanum roxaban and Apixaban will interfere with the anti Xa assay used to monitor UFH and LMWH. Performed By: #### L [id number] ####[facility] ([facility])[address] [place] [address] HEPARIN UNFRACTIONATED (U/ML) IN PPP BY CHROMOGENIC METHOD <0.10 Invalid Interpretation Code 0.3-0.7 [facility] Comment on above: Result Comment: Arcanum roxaban and Apixaban will interfere with the anti Xa assay used to monitor UFH and LMWH. Performed By: #### L [id number] ####[facility] ([facility])[address] [facility] [place] [address] APOLIPOPROTEIN B-100on 02-25 Magnesium [Mass/Vol] 50 mg/dL Low 66-133 [facility] Comment on above: Result Comment: REFE RENCE INTERVAL: Apolipoprotein BA desirable fasting serum Apo B concentration for the preventionof atherosclerotic cardiovascular disease in adults is less than90 mg/dL. A fasting serum Apo B concentration of 130 mg/dL orgreater corresponds to a LDL cholesterol concentration greaterthan 160 mg/dL and constitutes a risk enhancing factor foratherosclerotic cardiovascular disease in adults.Performed By: [employer] [place], [place] [id number] Director: Josh Olvera MD, PhDCLIA Number: [id number] Performed By: #### L [id number] ####[facility] ([facility])[address] [place] [address] APTTon 02-26-2024 ACTIVATED PARTIAL THROMBOPLASTIN TIME IN PPP BY COAGULATION ASSAY 32.6 Seconds Normal 25.0-35.0 [facility] Comment on above: Result Comment: Clin ical significance of the APTT is questionable in the presence of heparin. Performed By: #### L [id number] ####[facility] ([facility])[address] [place] [address] B-TYPE NATRIURETIC PEPTIDEon 02-26-2024 Natriuretic peptide B (Bld) [Mass/Vol] 321 pg/mL High 0-100 [facility] Comment on above: Performed By: #### L [id number] ####[facility] ([employer])[address] [place] [address] CBC WITH AUTO DIFFERENTIALon 02-26-2024 Basophils (Bld) [#/Vol] 0.03 10*3/uL Normal 0.00-0.20 [facility] Comment on above: Performed By: #### L [id number] ####[facility] ([facility])[address] [place] [address] Basophils/100 WBC (Bld) 0.5 % Normal 0.0-1.0 [facility] Comment on above: Performed By: #### L [id number] ####[facility] ([facility])[address] [place] [address] Eosinophils (Bld) [#/Vol] 0.04 10*3/uL Normal 0.00-0.50 [facility] Comment on above: Performed By: #### L [id number] ####[facility] (BEAKER)[address] [place] [address] Eosinophils/100 WBC (Bld) 0.6 % Normal 0.0-6.0 [facility] Comment on above: Performed By: #### L [id number] ####[facility] (BEAKER)[address] [place] [address] Erythrocyte distribution width (RBC) [Ratio] 12.9 % Normal 11.5-15.0 [facility] Comment on above: Performed By: #### L [id number] ####[facility] (BEAKER)[address] [place] [address] ERYTHROCYTE MEAN CORPUSCULAR HEMOGLOBIN CONCENTRATION (G/DL) BY AUTOMATED 31.2 g/dL Low 32.0-35.0 [facility] Comment on above: Performed By: #### L [id number] ####[facility] (BEAKER)[address] [place] [address] Hematocrit (Bld) [Volume fraction] 43.6 % Normal 39.0-55.0 [facility] Comment on above: Performed By: #### L [id number] ####[facility] (BEAKER)[address] [place] [address] Hemoglobin (Bld) [Mass/Vol] 13.6 g/dL Normal 13.0-17.0 [facility] Comment on above: Performed By: #### L [id number] ####[facility] (BEAKER)[address] [place] [address] Immature granulocytes (Bld) [#/Vol] 0.03 10*3/uL Normal 0.00-0.20 [facility] Comment on above: Performed By: #### L [id number] ####[facility] (BEAKER)[address] [place] [address] Immature granulocytes/100 WBC (Bld) 0.5 % Normal 0.0-1.0 [facility] Comment on above: Performed By: #### L [id number] ####[facility] ([facility])[address] [place] [address] Lymphocytes (Bld) [#/Vol] 0.52 10*3/uL Low 1.20-4.00 [facility] Comment on above: Performed By: #### L [id number] ####[facility] ([facility])[address] [place] [address] Lymphocytes/100 WBC (Bld) 8.4 % Low 20.0-45.0 [facility] Comment on above: Performed By: #### L [id number] ####[facility] ([facility])[address] [place] [address] MCH (RBC) [Entitic mass] 32.3 pg Normal 27.0-33.0 [facility] Comment on above: Performed By: #### L [id number] ####[facility] ([facility])[address] [place] [address] MCV (RBC) [Entitic vol] 103.6 fL High 82.0-98.0 [facility] Comment on above: Performed By: #### L [id number] ####[facility] ([facility])[address] [place] [address] Monocytes (Bld) [#/Vol] 0.71 10*3/uL Normal 0.10-1.00 [facility] Comment on above: Performed By: #### L [id number] ####[facility] ([facility])[address] [place] [address] Monocytes/100 WBC (Bld) 11.5 % Normal 5.0-12.0 [facility] Comment on above: Performed By: #### L [id number] ####[facility] (BEAKER)[address] [place] [address] Neutrophils (Bld) [#/Vol] 4.86 10*3/uL Normal 1.60-7.60 [facility] Comment on above: Performed By: #### L [id number] ####[facility] ([facility])[address] [place] [address] Neutrophils/100 WBC (Bld) 78.5 % High 40.0-72.0 [facility] Comment on above: Performed By: #### L [id number] ####[facility] ([facility])[address] [place] [address] NRBC (PER 100 WBCS) BY AUTOMATED COUNT 0.0 % Normal 0 [facility] Comment on above: Performed By: #### L [id number] ####[facility] ([facility])[address] [place] [address] PLATELETS (10*3/UL) IN BLOOD AUTOMATED COUNT 153 10*3/uL Normal 150-400 [facility] Comment on above: Performed By: #### L [id number] ####[facility] ([facility])[address] [place] [address] RBC (Bld) [#/Vol] 4.21 10*6/uL Normal 4.20-5.70 [facility] Comment on above: Performed By: #### L [id number] ####[facility] ([facility])[address] [place] [address] WBC (Bld) [#/Vol] 6.19 10*3/uL Normal 4.00-10.60 [facility] Comment on above: Performed By: #### L [id number] ####[facility] ([facility])[address] [address] CKon 02-26-2024 CREATINE KINASE (U/L) IN SER/PLAS 94.0 U/L Normal 30.0-223.0 [facility] Comment on above: Performed By: #### L [id number] ####[facility] ([facility])[address] [place] [address] COMPREHENSIVE METABOLIC PANE Larry 02-26-2024 Albumin [Mass/Vol] 3.4 g/dL Low 3.5-5.7 [facility] Comment on above: Performed By: #### L [id number] ####[facility] ([facility]AKER)[address] [place] [address] ALP [Catalytic activity/Vol] 89 U/L Normal 34-104 [facility] Comment on above: Performed By: #### L [id number] ####[facility] (BEAKER)[address] [place] [address] ALT [Catalytic activity/Vol] 16 U/L Normal 7-52 [facility] Comment on above: Performed By: #### L [id number] ####[facility] (BEAKER)[address] [place] [address] Anion gap [Moles/Vol] 9 mmol/L Normal 7-20 [facility] Comment on above: Performed By: #### L [id number] ####[facility] (BEAKER)[address] [place] [address] AST [Catalytic activity/Vol] 20 U/L Normal 13-39 [facility] Comment on above: Performed By: #### L [id number] ####[facility] (BEAKER)[address] [place] [address] Bilirubin [Mass/Vol] 1.0 mg/dL Normal 0.3-1.0 [facility] Comment on above: Performed By: #### L [id number] ####[facility] (BEAKER)[address] [place] [address] Calcium [Mass/Vol] 8.6 mg/dL Normal 8.6-10.3 [facility] Comment on above: Performed By: #### L [id number] ####[facility] (BEAKER)[address] [place] [address] Chloride [Moles/Vol] 105 mmol/L Normal 98-107 [facility] Comment on above: Performed By: #### L [id number] ####[facility] (BEAKER)[address] [place] [address] CO2 [Moles/Vol] 30 mmol/L Normal 21-[address] [facility] Comment on above: Performed By: #### L [id number] ####[facility] ([facility])[address] [place] [address] Creatinine [Mass/Vol] 0.90 mg/dL Normal 0.70-1.30 [facility] Comment on above: Performed By: #### L [id number] ####[facility] ([facility])[address] [place] [address] GLOMERULAR FILTRATION RATE ML/MIN/1.73 SQ M.PREDICTED 87.4 mL/min/1.73m*2 Normal >60.0 [facility] Comment on above: Result Comment: The [facility]???s estimated glomerular filtration rate (eGFR) will no longer include consideration of race in its calculation. The National Kidney Foundation???s eGFR Task Force developed new recommendations for the estimation of the glomerular filtration rate in the [place] They recommend immediate implementation of the new equation refit without the race variable in all laboratories because the calculation does not include race. In addition to not including race in the calculation and reporting, it included diversity in its development, and has acceptable performance characteristics and potential consequences that do not disproportionately affect any one group of individuals. Performed By: #### L [id number] ####[facility] ([facility])[address] [place] [address] Glucose [Mass/Vol] 127 mg/dL High 70-100 [facility] Comment on above: Performed By: #### L [id number] ####[facility] ([facility])[address] [place] [address] Potassium [Moles/Vol] 3.4 mmol/L Low 3.5-5.1 [facility] Comment on above: Performed By: #### L [id number] ####[facility] ([facility])[address] [place] [address] Protein [Mass/Vol] 6.9 g/dL Normal 6.0-8.3 [facility] Comment on above: Performed By: #### L [id number] ####[facility] ([facility])[address] [place] [address] Sodium [Moles/Vol] 141 mmol/L Normal 136-145 [facility] Comment on above: Performed By: #### L [id number] ####[facility] ([facility])[address] [place] [address] Urea nitrogen [Mass/Vol] 14 mg/dL Normal 7-25 [facility] Comment on above: Performed By: #### L [id number] ####[facility] ([facility])[address] [place] [address] UREA NITROGEN/CREATININE (MASS RATIO) IN SER/PLAS 15.6 Normal [facility] Comment on above: Performed By: #### L [id number] ####[facility] ([facility])[address] [place] [address] CTA CHEST W IV CONTRASTon CTA CHEST W IV CONTRAST Normal [facility] ETHANOLon 02-26-2024 ETHANOL (MG/DL) IN SER/PLAS <10 Normal [facility] Comment on above: Performed By: #### L [id number] ####[facility] ([facility])[address] [place] [address] ETHANOL CALCULATED (%) Normal [facility] Comment on above: Performed By: #### L [id number] ####[facility] ([facility])[address] [place] [address] HEMOGLOBIN A1Con 02-26-2024 Glucose [Mass/Vol] 88 mg/dL Normal [facility] Comment on above: Performed By: #### L [id number] ####[facility] ([facility])[address] [place] [address] HbA1c (Bld) [Mass fraction] 4.7 % Normal 4.0-6.0 [facility] Comment on above: Performed By: #### L [id number] ####[facility] (BEAKER)[address] [place] [address] HPon 02-26-2024 HP Normal [facility] LIPID PANELon 02-26-2024 CHOL/HDL 2.5 mg/dL Normal [facility] Comment on above: Performed By: #### L [id number] ####[facility] (BEAKER)[address] [facility] [place] [address] Cholesterol [Mass/Vol] 93 mg/dL Low 120-200 [facility] Comment on above: Performed By: #### L [id number] ####[facility] ([facility])[address] [facility] [place] [address] Magnesium [Mass/Vol] 59 mg/dL Normal 40-149 [facility] Comment on above: Result Comment: TRIG LYCERIDE REFERENCE RANGE:20 YEARS AND OLDER CARDIOVASCULAR RISKLESS THAN 150 mg/dL LOW [id number] TO 199 mg/dL BORDERLINE [id number] mg/dL AND GREATER HIGH RISK Performed By: #### L [id number] ####[facility] ([facility])[address] [place] [address] Magnesium [Mass/Vol] 44 mg/dL Normal 0-160 [facility] Comment on above: Performed By: #### L [id number] ####[facility] ([facility])[address] [facility] [place] [address] Magnesium [Mass/Vol] 37 mg/dL Normal 23-92 [facility] Comment on above: Performed By: #### L [id number] ####[facility] ([facility])[address] [facility] [place] [address] NON HDL CHOL. (LDL+VLDL) 56 Normal [facility] Comment on above: Performed By: #### L [id number] ####[facility] ([facility])[address] [facility] [place] [address] TOTAL VLDL-C 12 mg/dL Normal 0-40 [facility] Comment on above: Performed By: #### L [id number] ####[facility] ([facility])[address] [facility] [place] [address] LIPOPROTEIN A (LPA)on 2023 Magnesium [Mass/Vol] 10 mg/dL Normal <=29 [facility] Comment on above: Result Comment: Perf ormed By: [employer] [place] [id number] Director: Josh Olvera MD, PhDCLIA Number: [id number] Performed By: #### L [id number] ####[facility] ([facility])[address] [place] [address] MAGNESIUMon 02-26-2024 Magnesium [Mass/Vol] 1.7 mg/dL Low 1.9-2.7 [facility] Comment on above: Performed By: #### L [id number] ####[facility] ([facility])[address] [place] [address] PHOSPHORUSon 02-26-2024 Magnesium [Mass/Vol] 3.7 mg/dL Normal 2.5-5.0 [facility] Comment on above: Performed By: #### L [id number] ####[facility] ([facility])[address] [place] [address] TOXICOLOGY PANEL URINEon AMPHETAMINE+METHAMP HETAMINE SCREEN (PRESENCE) IN URINE Negative Normal Negative [facility] Comment on above: Performed By: #### L [id number] ####[facility] ([facility])[address] [place] [address] BARBITURATES PRESENCE IN URINE BY SCREEN METHOD Negative Normal Negative [facility] Comment on above: Performed By: #### L [id number] ####[facility] ([facility])[address] [place] [address] Benzodiazepines Ql (U) Negative Normal Negative [facility] Comment on above: Performed By: #### L [id number] ####[facility] ([facility])[address] [place] [address] CANNABINOID (PRESENCE) IN URINE BY SCREEN METHOD Negative Normal Negative [facility] Comment on above: Performed By: #### L [id number] ####[facility] ([facility])[address] [place] [address] Cocaine Ql (U) Negative Normal Negative [facility] Comment on above: Performed By: #### L [id number] ####[facility] ([facility])[address] [address] METHADONE (PRESENCE) IN URINE BY SCREEN METHOD Negative Normal Negative [facility] Comment on above: Performed By: #### L [id number] ####[facility] ([facility])[address] [facility] [place] [address] OPIATES (PRESENCE) IN URINE BY SCREEN METHOD Negative Normal Negative [facility] Comment on above: Performed By: #### L [id number] ####[facility] ([facility])[address] [facility] [place] [address] PHENCYCLIDINE PRESENCE IN URINE BY SCREEN METHOD Negative Normal Negative [facility] Comment on above: Performed By: #### L [id number] ####[facility] ([facility])[address] [facility] [place] [address] Propoxyphene Screen Ql (U) Negative Normal Negative [facility] Comment on above: Performed By: #### L [id number] ####[facility] ([facility])[address] [facility] [place] [address] TRICYCLIC ANTIDEPRESSANTS (PRESENCE) IN URINE Negative Normal Negative [facility] Comment on above: Performed By: #### L [id number] ####[facility] ([facility])[address] [facility] [place] [address] TROPONIN Ion 02-26-2024 Troponin I.cardiac [Mass/Vol] 0.02 ng/mL Normal 0.00-0.04 [facility] Comment on above: Performed By: #### L [id number] ####[facility] ([facility])[address] [facility] [place] [address] Troponin I.cardiac [Mass/Vol] 0.02 ng/mL Normal 0.00-0.04 [facility] Comment on above: Performed By: #### L [id number] ####[facility] ([facility])[address] [facility] [place] [address] Troponin I.cardiac [Mass/Vol] 0.01 ng/mL Normal 0.00-0.04 [facility] Comment on above: Performed By: #### L [id number] ####[facility] ([facility])[address] [place] [address] TSHon 02-26-2024 THYROTROPIN (MIU/L) IN SER/PLAS BY DETECTION LIMIT <= 0.05 MIU/L 1.59 mIU/L Normal 0.34-5.60 [facility] Comment on above: Performed By: #### L AB129 ####[facility] ([facility])[address] [place] [address] CBC AND AUTO DIFFon 02-22-20 ABSOLUTE BASOPHIL 0.0 X10E9/L Normal 0.0-0.2 [facility] Comment on above: Performed By: #### P INR, 60255-0 #### [facility] ([id number]) [address] [place] [address] 50021 #### CBCA, CMP #### [facility] ([id number]) [address], [address] [place] [address] ABSOLUTE NEUTROPHIL 2.3 X10E9/L Normal 1.5-6.6 [facility] Comment on above: Performed By: #### P INR, 58499-1 #### [facility] ([id number]) [address] [place] [address] 39471 #### CBCA, CMP #### [facility] ([id number]) [address], [address] [place] [address] Basophils/100 WBC (Bld) 0.7 % Normal [facility] Comment on above: Performed By: #### P INR, 94781-5 #### [facility] ([id number]) [address] [place] [address] 16178 #### CBCA, CMP #### [facility] ([id number]) [address], [address] [place] [address] Eosinophils (Bld) [#/Vol] 0.2 10*3/uL Normal 0.0-0.4 [facility] Comment on above: Performed By: #### P INR, 20020-0 #### [facility] ([id number]) [address] [place] [address] 91088 #### CBCA, CMP #### [facility] ([id number]) [address], [address] [place] [address] Eosinophils/100 WBC (Bld) 3.8 % Normal [facility] Comment on above: Performed By: #### P INR, 20634-2 #### [facility] ([id number]) [address] [place] [address] 39178 #### CBCA, CMP #### [facility] ([id number]) [address], [address] [place] [address] Erythrocyte distribution width (RBC) [Ratio] 14.3 % Normal 11.5-15.0 [facility] Comment on above: Performed By: #### P INR, 40735-9 #### [facility] ([id number]) [address] [place] [address] 96473 #### CBCA, CMP #### [facility] ([id number]) [address], [address] [place] [address] Hematocrit (Bld) [Volume fraction] 42.1 % Normal 39-49 [facility] Comment on above: Performed By: #### P INR, 44578-3 #### [facility] ([id number]) [address] [place] [address] 73084 #### CBCA, CMP #### [facility] ([id number]) [address], [address] [place] [address] Hemoglobin (Bld) [Mass/Vol] 13.9 g/dL Normal 13.0-17.0 [facility] Comment on above: Performed By: #### P INR, 49578-4 #### [facility] ([id number]) [address] [place] [address] 51863 #### CBCA, CMP #### [facility] ([id number]) [address], [address] [place] [address] Lymphocytes (Bld) [#/Vol] 1.4 10*3/uL Normal 1.0-3.5 [facility] Comment on above: Performed By: #### P INR, 26370-2 #### [facility] ([id number]) [address] [place] [address] 59005 #### CBCA, CMP #### [facility] ([id number]) [address] [facility] [place] [address] Lymphocytes/100 WBC (Bld) 31.5 % Normal [facility] Comment on above: Performed By: #### P INR, 93542-0 #### [facility] ([id number]) [address] [place] [address] 98997 #### CBCA, CMP #### [facility] ([id number]) [address] [facility] [facility] [place] [address] MCH (RBC) [Entitic mass] 32.8 pg Normal 27-34 [facility] Comment on above: Performed By: #### P INR, 02835-8 #### [facility] ([id number]) [address] [place] [address] 91710 #### CBCA, CMP #### [facility] ([id number]) [address], [address] [place] [address] MCHC (RBC) [Mass/Vol] 32.9 g/dL Normal 32-36 [facility] Comment on above: Performed By: #### P INR, 43367-5 #### [facility] ([id number]) [address] [place] [address] 87455 #### CBCA, CMP #### [facility] ([id number]) [address], [address] [place] [address] MCV (RBC) [Entitic vol] 100 fL Normal 80-100 [facility] Comment on above: Performed By: #### P INR, 38593-4 #### [facility] ([id number]) [address] [place] [address] 85602 #### CBCA, CMP #### [facility] ([id number]) [address], [address] [place] [address] Monocytes (Bld) [#/Vol] 0.5 10*3/uL Normal 0-0.9 [facility] Comment on above: Performed By: #### P INR, 06009-5 #### [facility] ([id number]) [address] [place] [address] 25989 #### CBCA, CMP #### [facility] ([id number]) [address], [address] [place] [address] Monocytes/100 WBC (Bld) 10.8 % Normal [facility] Comment on above: Performed By: #### P INR, 22069-8 #### [facility] ([id number]) [address] [place] [address] 70071 #### CBCA, CMP #### [facility] ([id number]) [address], [address] [place] [address] Neutrophils/100 WBC (Bld) 53.2 % Normal [facility] Comment on above: Performed By: #### P INR, 78906-6 #### [facility] ([id number]) [address] [place] [address] 24440 #### CBCA, CMP #### [facility] ([id number]) [address], [address] [place] [address] Platelet mean volume (Bld) [Entitic vol] 9.8 fL Normal 7-12 [facility] Comment on above: Performed By: #### P INR, 98398-7 #### [facility] ([id number]) [address] [place] [address] 41662 #### CBCA, CMP #### [facility] ([id number]) [address], [address] [place] [address] Platelets (Bld) [#/Vol] 164 10*3/uL Normal 150-450 [facility] Comment on above: Performed By: #### P INR, 24088-9 #### [facility] ([id number]) [address] [place] [address] 52011 #### CBCA, CMP #### [facility] ([id number]) [address], [address] [place] [address] RBC COUNT 4.22 X10E12/L Normal 4.10-5.70 [facility] Comment on above: Performed By: #### P INR, 90326-1 #### [facility] ([id number]) [address] [place] [address] 44946 #### CBCA, CMP #### [facility] ([id number]) [address], [address] [place] [address] WBC (Bld) [#/Vol] 4.3 10*3/uL Normal 4.0-11.0 [facility] Comment on above: Performed By: #### P INR, 94442-5 #### [facility] ([id number]) [address] [place] [address] 60412 #### CBCA, CMP #### [facility] ([id number]) [address], [address] [place] [address] COMPREHENSIVE METABOLIC PANE Larry 02-22-2024 Albumin [Mass/Vol] 3.4 g/dL Normal 3.2-5.3 [facility] Comment on above: Performed By: #### P INR, 01914-5 #### [facility] ([id number]) [address] [place] [address] 02527 #### CBCA, CMP #### [facility] ([id number]) [address] [place] [address] ALP [Catalytic activity/Vol] 88 U/L Normal 39-130 [facility] Comment on above: Performed By: #### P INR, 96737-7 #### [facility] ([id number]) [address] [place] [address] 88492 #### CBCA, CMP #### [facility] ([id number]) [address], [address] [place] [address] ALT [Catalytic activity/Vol] 15 U/L Normal 0-40 [facility] Comment on above: Performed By: #### P INR, 04123-0 #### [facility] ([id number]) [address] [place] [address] 11656 #### CBCA, CMP #### [facility] ([id number]) [address], [address] [place] [address] Anion gap [Moles/Vol] 8 mmol/L Normal 5-15 [facility] Comment on above: Performed By: #### P INR, 49954-1 #### [facility] ([id number]) [address] [place] [address] 18289 #### CBCA, CMP #### [facility] ([id number]) [address], [address] [place] [address] AST [Catalytic activity/Vol] 21 U/L Normal 0-41 [facility] Comment on above: Performed By: #### P INR, 17746-3 #### [facility] ([id number]) [address] [place] [address] 35049 #### CBCA, CMP #### [facility] ([id number]) [address], [address] [place] [address] Bilirubin [Mass/Vol] 0.5 mg/dL Normal 0.3-1.2 [facility] Comment on above: Performed By: #### P INR, 94711-5 #### [facility] ([id number]) [address] [place] [address] 54579 #### CBCA, CMP #### [facility] ([id number]) [address], [address] [place] [address] Calcium [Mass/Vol] 8.9 mg/dL Normal 8.5-10.5 [facility] Comment on above: Performed By: #### P INR, 66556-4 #### [facility] ([id number]) [address] [place] [address] 08320 #### CBCA, CMP #### [facility] ([id number]) [address], [address] [place] [address] Chloride [Moles/Vol] 109 mmol/L Normal 98-109 [facility] Comment on above: Performed By: #### P INR, 72621-3 #### [facility] ([id number]) [address] [place] [address] 75066 #### CBCA, CMP #### [facility] ([id number]) [address], [address] [place] [address] CO2 [Moles/Vol] 26 mmol/L Normal 22-32 [facility] Comment on above: Performed By: #### P INR, 91798-5 #### [facility] ([id number]) [address] [place] [address] 01746 #### CBCA, CMP #### [facility] ([id number]) [address] [facility] [place] [address] Creatinine [Mass/Vol] 0.80 mg/dL Normal 0.60-1.30 [facility] Comment on above: Result Comment: METH OD TRACEABLE TO IDMS STANDARD Performed By: #### P INR, 62691-9 #### [facility] ([id number]) [address] [place] [address] 48615 #### CBCA, CMP #### [facility] ([id number]) [address] [facility], [address] [address] eGFR (CKD-EPI) NON-RACE DEPENDENT >90 Normal >59 [facility] Comment on above: Result Comment: Reported eGFR is based on the CKD-EPI 2020 equation that does not use a race coefficient. Performed By: #### P INR, 11635-3 #### [facility] ([id number]) [address] [place] [address] 66061 #### CBCA, CMP #### [facility] ([id number]) [address] [facility] [facility], [address] [address] Glucose [Mass/Vol] 106 mg/dL High 65-99 [facility] Comment on above: Performed By: #### P INR, 56656-9 #### [facility] ([id number]) [address] [place] [address] 89157 #### CBCA, CMP #### [facility] ([id number]) [address] [facility] [place] [address] Potassium [Moles/Vol] 3.4 mmol/L Low 3.5-5.0 [facility] Comment on above: Performed By: #### P INR, 36668-8 #### [facility] ([id number]) [address] [place] [address] 44598 #### CBCA, CMP #### [facility] ([id number]) [address] [facility], [address] [place] [address] Protein [Mass/Vol] 6.8 g/dL Normal 6.0-8.0 [facility] Comment on above: Performed By: #### P INR, 62508-6 #### [facility] ([id number]) [address] [place] [address] 04820 #### CBCA, CMP #### [facility] ([id number]) [address] [facility], [address] [place] [address] Sodium [Moles/Vol] 143 mmol/L Normal 134-146 [facility] Comment on above: Performed By: #### P INR, 47237-6 #### [facility] ([id number]) [address] [place] [address] 10156 #### CBCA, CMP #### [facility] ([id number]) [address] [facility], [address] [place] [address] Urea nitrogen [Mass/Vol] 15 mg/dL Normal 5-27 [facility] Comment on above: Performed By: #### P INR, 32886-0 #### [facility] ([id number]) [address] [place] [address] 59965 #### CBCA, CMP #### [facility] ([id number]) [address] [facility] [place] [address] PROTIME AND INRon 02-22-2024 INR Coag (PPP) [Relative time] 1.2 {INR} High 0.8-1.1 [facility] Comment on above: Performed By: #### P INR, 13864-4 #### [facility] ([id number]) [address] [place] [address] 36896 #### CBCA, CMP #### [facility] ([id number]) [address], [address] [place] [address] PT Coag (PPP) [Time] 14.1 s High 9.8-13.2 [facility] Comment on above: Result Comment: NEW REFERENCE RANGE Performed By: #### P INR, 97230-6 #### [facility] ([id number]) [address] [place] [address] #### CBCA, CMP #### [facility] ([id number]) [address] [facility] [place] [address] aPTT Coag (PPP) [Time]on aPTT Coag (Bld) [Time] 39 s High 26-37 [facility] Comment on above: Result Comment: NEW REFERENCE RANGE Performed By: #### P INR, 00863-6 #### [facility] ([id number]) [address] [place] [address] 24682 #### CBCA, CMP #### [facility] ([id number]) [address] [facility], [address] [place] [address] NURSNOTEon 02-19-2024 NURSNOTE [facility] HPon 02-09-2024 HP [facility] 36on 02-08-2024 36 [facility] 37on 05-25-2023 37 [facility] Encounters Encounter Date Encounter Type Care Provider Facility Start: 03-13-2024 End: 03-14-2024 ambulatory [facility] Start: 03-05-2024 [facility] Start: 03-01-[facility]24 Evaluation and management of inpatient [facility] Start: 02-28-2024 Evaluation and management of inpatient [facility] Start: 02-28-2024 Evaluation and management of inpatient [facility] Start: 02-27-2024 Evaluation and management of inpatient [facility] Start: 02-27-2024 Evaluation and management of inpatient [facility] Start: 02-26-2024 Evaluation and management of inpatient [facility] Start: 02-26-2024 Evaluation and management of inpatient [facility] Start: 02-26-2024 Evaluation and management of inpatient [facility] Start: 02-26-2024 Evaluation and management of inpatient [facility] Start: 02-26-2024 End: 02-26-2024 ambulatory [facility] Start: 02-26-2024 End: 03-06-2024 Evaluation and management of inpatient [facility] Start: 02-22-2024 End: 02-22-2024 ambulatory [facility] Start: 02-09-2024 End: 02-09-2024 ambulatory [facility] Start: 02-09-2024 End: 02-09-2024 ambulatory [facility] Start: 02-09-2024 End: 02-09-2024 ambulatory [facility] Start: 01-10-2024 End: 01-10-2024 ambulatory [facility] Start: 12-29-2023 ambulatory Nova Wang Facility:E Dawna Devries Start: 12-26-2023 End: 12-26-2023 ambulatory ZAYDA LEUNG Facility:ZARIA Soriano Start: 12-26-2023 End: 12-26-2023 Patient encounter procedure ZAYDA LEUNG [facility] Start: 12-19-2023 ambulatory Nova Wang Facility:Velia Soriano Start: 12-12-2023 End: 12-13-2023 ambulatory Nova Wang Facility:CD:[id number] Start: 12-12-2023 End: 12-12-2023 ambulatory Nova Wang Facility:CD:[id number] Start: 05-25-2023 End: 05-25-2023 ambulatory [facility] Procedures Date Procedure Procedure Detail Performing Clinician Start: 03-13-2024 Follow-up visit MELISSA DAVIS Start: 02-09-2024 Follow-up visit MELISSA DAVIS Start: 01-10-2024 Follow-up visit MELISSA DAVIS Start: 05-25-2023 Follow-up visit MELISSA DAVIS Payers Date Payer Category Payer Unknown [id number] 1945 Unknown [id number] 2.16.8 [id number] 1945 Unknown [id number] 2.16.8 [id number] 1945 Unknown [id number] 2.16.8 [id number] 1945 Unknown [id number] 2.16.8 [id number] 1945 Unknown [id number] 2.16.8 [id number] 1945 Unknown [id number] 2.16.8 [id number] Social History Date Type Detail Facility Tobacco smoking status No Smoking Status Entered [facility] Sex Assigned At Male [facility] Clinical Notes 05-25-2023 to 03-13-2024 Note Date & Type Note Facility 03-13-2024 Note [facility] 03-06-2024 Note [facility] 03-06-2024 Note [facility] 03-06-2024 Note [facility] 03-06-2024 Note [facility] 03-05-2024 Note [facility] 03-05-2024 Note [facility] 03-05-2024 Note [facility] 03-05-2024 Note [facility] 03-05-2024 Note [facility] 03-04-2024 Note [facility] 03-04-2024 Note [facility] 03-04-2024 Note Physical Therapy PM Cancellation note Monday03/04/2024 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 Attempted time : 14:08-14:10 [facility] 03-04-2024 Note [facility] 03-04-2024 Note [facility] 03-04-2024 Note [facility] 03-03-2024 Note [facility] 03-03-2024 Note Sent updates to L[facility] at the [place]. [facility] 03-02-2024 Note [facility] 03-02-2024 Note [facility] 03-02-2024 Note [facility] 03-02-2024 Note [facility] 03-01-2024 Note [facility] 03-01-2024 Note [facility] 03-01-2024 Note [facility] 02-29-2024 Note [facility] 02-29-2024 Note [facility] 02-29-2024 Note [facility] 02-29-2024 Note [facility] 02-29-2024 Note [facility] 02-29-2024 Note [facility] 02-29-2024 Note [facility] 02-28-2024 Note [facility] 02-28-2024 Note Physical Therapy Patient medically unstable, not appropriate for PT evaluation. Will follow up and evaluate as appropriate. Kuldeep Garces PT, DPT [facility] 02-28-2024 Note Occupational Therapy Name: Neptali Reeves Date of : 1945 Today's Date: 02/28/24 Pt is unable to be seen for therapy at this time secondary to Medically unstable per nsg . Check No Charge Time attempted: 908 [facility] 02-28-2024 Note Discharge Planning U pdate: 0906 Attempted to see patient but was unsuccessful as patient is currently having severe difficulty breathing & talking so they may possible be intubated soon if needed. OTM to follow. [facility] 02-28-2024 Note [facility] 02-28-2024 Note [facility] 02-27-2024 Note [facility] 02-27-2024 Note [facility] 02-27-2024 Note [facility] 02-26-2024 Note [facility] 02-26-2024 Note [facility] 02-09-2024 Note [facility] 01-10-2024 Note [facility] 01-10-2024 Note [facility] 05-25-2023 Note [facility] 05-25-2023 Note [facility] Evaluation + Plan note No data available for this section [facility] Discharge instructions No data available for this section [facility] Progress note No data available for this section [facility] Summary Purpose Family History No Family History Records Found Advance Directives No Advanced Directives Records FoundNo Advanced Directives Records FoundNo Advanced Directives Records Found Additional Source Comments Patient Care team informatio n (unrecognized section and content) Personnel Name: PAULA POE, JAD Gunn Address: Address: [address] [place] [id number] (unrecognized sect ion and content) No Status Records FoundNo Status Records FoundNo Status Records Found INFORMATION SOURCE (unrecogn ized section and content) DATE CREATED AUTHOR 01/03/2024 [facility] DATE CREATED AUTHOR AUTHOR'S ORGANIZ ATION 02/25/2024 [facility] DATE CREATED AUTHOR AUTHOR'S ORGANIZ ATION 03/15/2024 [facility] FOR RECORDS PERTAINING TO PATIENTS WHO ARE OR HAVE BEEN ENROLLED IN A CHEMICAL DEPENDENCY/SUBSTANCEABUSE PROGRAM, SOME INFORMATION MAY BE OMITTED. This clinical summary was aggregated from multiple sources. Caution should be exercised in using it in the provision of clinical care. This summary normalizes information from multiple sources, and as a consequence, information in this document may materially change the coding, format and clinical context of patient data. In addition, data may be omitted in some cases. CLINICAL DECISIONS SHOULD BE BASED ON THE PRIMARY CLINICAL RECORDS. [facility]. provides no warranty or guarantee of the accuracy or completeness of information in this document.
[2024-04-03 15:44] LABS: Basophils Absolute Auto 0.1 10^3/uL (0.0-0.1); Basophils Percent Auto 1.1 % (0.2-2.0); Eosinophils Absolute Auto 0.2 10^3/uL (0.0-0.7); Eosinophils Percent Auto 3.4 % (0.9-7.0); Hematocrit 44.1 % (42.0-54.0); Immature Granulocytes Abs Auto 0.01 10^3/uL (0.00-0.03); Immature Granulocytes Pct Auto 0.2 % (0.0-0.5); Lymphocytes Absolute Auto 1.8 10^3/uL (1.2-3.8); Lymphocytes Percent Auto 31.7 % (20.5-60.0); Mean Corpuscular HGB Conc 31.7 g/dL (29.9-35.2); Mean Corpuscular Hemoglobin 31.9 pg (25.9-34.0); Mean Corpuscular Volume 100.5 fL (80.0-94.0); Mean Platelet Volume 10.3 fL (9.5-13.5); Monocytes Absolute Auto 0.6 10^3/uL (0.3-0.8); Monocytes Percent Auto 10.1 % (1.7-12.0); Neutrophils Percent Auto 53.5 % (43.0-75.0); Platelet Count 152 10^3/uL (150-450); Red Blood Count 4.39 10^6/uL (4.70-6.10); Red Cell Distribution Width 13.7 % (11.0-15.0); White Blood Count 5.6 10^3/uL (4.0-11.0)
[2024-04-03 15:58] LABS: INR 1.14; Partial Thromboplastin Time 29.2 sec (22.3-36.2); Prothrombin Time 11.9 sec (9.0-11.6)
[2024-04-03 16:14] LABS: Alanine Aminotransferase 22 U/L (16-63); Albumin Globulin Ratio 0.7; Albumin Level 2.9 g/dL (3.4-5.0); Alkaline Phosphatase 166 U/L (46-116); Anion Gap 11.1; Aspartate Amino Transferase 19 U/L (15-37); BUN Creatinine Ratio 6.2; Bilirubin Total 0.5 mg/dL (0.2-1.0); Calcium 9.5 mg/dL (8.5-10.1); Carbon Dioxide 31.4 mmol/L (21.0-32.0); Chloride 106 mmol/L (98-107); Estimated GFR (African America >60 (>=60 mL/min/1.73m^2); Estimated GFR (Non-African Ame 54 (>=60 mL/min/1.73m^2); Globulin 4.2 g/dL; Glucose 90 mg/dL (74-106); Potassium 3.5 mmol/L (3.5-5.1); Sodium 145 mmol/L (136-145); Total Protein 7.1 g/dL (6.4-8.2)
== END 2024-04-03 15:27 | disposition home or self-care (01) ==
PROVIDERS: PCP Family Medicine; Visit Provider Urology
DX: I25.10 Atherosclerotic heart disease of native coronary artery without angina pectoris (principal); N20.0 Calculus of kidney; I25.2 Old myocardial infarction; I47.10 Supraventricular tachycardia, unspecified; N32.89 Other specified disorders of bladder
CPT/HCPCS: 36415; 80053; 85025; 85610; 85730

== ENCOUNTER 2024-05-13 13:30 | Outpatient (RCR) | payer MEDICARE, SELFPAY ==
--- NOTE | 2024-05-13 15:03 | CR1_ITS ---
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
== END 2024-05-14 12:06 | disposition home or self-care (01) ==
LOC: CR 13:30
PROVIDERS: PCP Family Medicine; Visit Provider Nurse Practitioner Family
DX: I50.22 Chronic systolic (congestive) heart failure (principal)

== ENCOUNTER 2024-05-13 14:57 | Outpatient (OUT) | payer MEDICARE, SELFPAY ==
[2024-05-13 16:07] LABS: Basophils Absolute Auto 0.1 10^3/uL (0.0-0.1); Basophils Percent Auto 0.9 % (0.2-2.0); Eosinophils Absolute Auto 0.2 10^3/uL (0.0-0.7); Hematocrit 46.5 % (42.0-54.0); Hemoglobin 14.9 g/dL (14.0-18.0); Immature Granulocytes Abs Auto 0.02 10^3/uL (0.00-0.03); Immature Granulocytes Pct Auto 0.3 % (0.0-0.5); Lymphocytes Absolute Auto 1.6 10^3/uL (1.2-3.8); Mean Corpuscular Hemoglobin 31.5 pg (25.9-34.0); Mean Corpuscular Volume 98.3 fL (80.0-94.0); Mean Platelet Volume 11.3 fL (9.5-13.5); Monocytes Absolute Auto 0.6 10^3/uL (0.3-0.8); Monocytes Percent Auto 9.1 % (1.7-12.0); Neutrophils Absolute Auto 4.1 10^3/uL (1.4-6.5); Neutrophils Percent Auto 62.7 % (43.0-75.0); Platelet Count 156 10^3/uL (150-450); Red Blood Count 4.73 10^6/uL (4.70-6.10); Red Cell Distribution Width 14.9 % (11.0-15.0); White Blood Count 6.6 10^3/uL (4.0-11.0)
[2024-05-13 16:16] LABS: INR 1.19; Partial Thromboplastin Time 30.5 sec (22.3-36.2); Prothrombin Time 12.4 sec (9.0-11.6)
[2024-05-13 16:18] LABS: Alanine Aminotransferase 19 U/L (16-63); Albumin Globulin Ratio 0.8; Alkaline Phosphatase 122 U/L (46-116); Anion Gap 11.6; Aspartate Amino Transferase 23 U/L (15-37); BUN Creatinine Ratio 6.9; Bilirubin Total 0.6 mg/dL (0.2-1.0); Calcium 8.7 mg/dL (8.5-10.1); Chloride 110 mmol/L (98-107); Estimated GFR (African America >60 (>=60 mL/min/1.73m^2); Estimated GFR (Non-African Ame >60 (>=60 mL/min/1.73m^2); Globulin 3.8 g/dL; Glucose 89 mg/dL (74-106); Potassium 3.6 mmol/L (3.5-5.1); Sodium 146 mmol/L (136-145); Total Protein 6.8 g/dL (6.4-8.2)
== END 2024-05-13 14:58 | disposition home or self-care (01) ==
LOC: LAB 14:58
PROVIDERS: PCP Family Medicine; Visit Provider Urology
DX: N20.0 Calculus of kidney (principal); N28.89 Other specified disorders of kidney and ureter
CPT/HCPCS: 36415; 80053; 85025; 85610; 85730

== ENCOUNTER 2024-05-14 12:51 | Outpatient (REF) | payer MEDICARE, SELFPAY ==
--- OUTSIDE RECORDS SUMMARY | 2024-05-14 13:04 | XMS_ITS | CCD ---
Author Organization [facility] Care Team Providers Care [employer] Service Employee Name Role Phone JAD MITCHELL Primary Care Physician Nova Wang Attending Unavailable ZAYDA LEUNG Attending Unavailable Nova Wang Referring Unavailable Nova Wang Attending Unavailable Nova Wang Attending Unavailable Nova Wang Referring Unavailable Nova Wang Attending Unavailable EKWENNA, KIERAN O Referring Unavailable MIGUEL GARCIA Primary Care Unavailable PRADEEP, ABE Referring Unavailable PRADEEP, ABE Referring Unavailable EKWENNA, OBI Referring Unavailable CORY, TYREE Referring Unavailable DAVISMELISSA BERMEO Referring Unavailable CORY, TYERE Referring Unavailable PRADEEP, ABE Admitting Unavailable SAILAJA YOUNGBLOOD Attending Unavailable LEONID RAMIREZ Attending Unavailable EKWENNA, OBI Referring Unavailable PRADEEP, ABE Referring Unavailable PRADEEP, ABE Referring Unavailable PRADEEP, ABE Referring Unavailable PRADEEP, ABE Referring Unavailable CORY, TYREE Referring Unavailable PRADEEP, ABE Referring Unavailable PRADEEP, ABE Referring Unavailable CORY, TYREE Referring Unavailable RANDOLPH PROCTOR Attending Unavailable PRADEEP, ABE Referring Unavailable RADIOLOGY, RADIOLOGIST Attending Unavailab le EKWENNA, OBI Referring Unavailable EKWENNA, OBI Referring Unavailable ESTHELARANDOLPH Attending Unavailable ESTHELARANDOLPH Attending Unavailable EKWENNA, OBI Attending Unavailable EKWENNA, OBI Attending Unavailable RANDOLPH PROCTOR Attending Unavailable PRADEEP, ABE Referring Unavailable Problems Problem Classification Problem Date Documented Date Episodic/Chronic Calculus of urinary tract (2 sources) Calculus of kidney; Translations: [Calculus of kidney] Onset: 04-19-2024 Episodic Cardiac arrest and ventricular fibrillation (4 sources) Cardiac arrest, cause unspecified; Translations: [Ventricular fibrillation] Onset: 02-26-2024 Chronic Cardiac dysrhythmias (6 sources) Paroxysmal atrial fibrillation; Translations: [Cardiac arrhythmia, unspecified] Onset: 01-10-2024 Chronic Chronic obstructive pulmonary disease and bronchiectasis (2 sources) Mixed simple and mucopurulent chronic bronchitis; Translations: [Mixed simple and mucopurulent chronic bronchitis] Onset: 02-26-2024 Chronic Complications of surgical procedures or medical care (2 sources) Hypotension due to drugs; Translations: [Hypotension due to drugs] Onset: 04-02-2024 Episodic Conduction disorders (4 sources) Encounter for checking and testing of cardiac pacemaker pulse generator [battery]; Translations: [Presence of automatic (implantable) cardiac defibrillator] Onset: 03-13-2024 Chronic Congestive heart failure; nonhypertensive (4 sources) Chronic systolic (congestive) heart failure; Translations: [Acute systolic (congestive) heart failure] Onset: 02-26-2024 Chronic Coronary atherosclerosis and other heart disease (7 sources) Atherosclerotic heart disease of tetlin coronary artery without angina pectoris; Translations: [Old [...] disease without heart failure] Onset: 05-25-2023 Chronic Other diseases of kidney and ureters (2 sources) Other specified disorders of kidney and ureter; Translations: [Other specified disorders of kidney and ureter] Onset: 04-19-2024 Chronic Other diseases of veins and lymphatics (2 sources) Venous insufficiency (chronic) (peripheral); Translations: [Venous insufficiency (chronic) (peripheral)] Onset: 04-24-2024 Episodic Unclassified (2 sources) Nephrolithiasis; Translations: [Nephrolithiasis] Onset: 02-09-2024 Results Test Name Value Interpretation Reference Range Facility Orders Onlyon 05-10-2024 Orders Only [facility] 37on 04-24-2024 37 [facility] Orders Onlyon 04-24-2024 Orders Only [facility] Follow-Upon 04-19-2024 Follow-Up [facility] 36on 04-18-2024 36 Patrice, patient's son called back and said his BP now was 131/79. I advised him to continue to keep track of his father's BP trends, taking it 1-2 hours after medications. Asked him to make our office aware of any concerns. He verbalized understanding. [facility] 36 [facility] 36on 04-04-2024 36 Please let him know, labs look good. Okay to resume Farxiga and spironolactone half tablet daily. Thanks! [facility] 36on 04-03-2024 36 Okay to resume Metoprolol. Will await his lab results to see if okay to resume the rest. Please follow-up tomorrow to make sure labs were done today. Thank you! [facility] Telephoneon 04-03-2024 Telephone [facility] 37on 04-02-2024 37 *Replacing carvedilo l with metoprolol succinate, 25mg, 1 tablet daily. *Prescription sent for an antibiotic, doxycycline 100mg. Take twice daily for 10 days. [facility] 30on 03-06-2024 30 [facility] 30 [facility] 30 [facility] BASIC METABOLIC PANELon 02-13 Anion gap [Moles/Vol] 7 mmol/L Normal - [facility] Comment on above: Performed By: #### L [id number] ####[facility] ([facility])[address] [place] [address] Calcium [Mass/Vol] 8.4 mg/dL Low 8.6-10.3 [facility] Comment on above: Performed By: #### L [id number] ####[facility] [place] [address] Chloride [Moles/Vol] 105 mmol/L Normal 98-107 [facility] Comment on above: Performed By: #### L [id number] ####[facility] ([facility])[address] [place] [address] CO2 [Moles/Vol] 32 mmol/L High 21-31 [facility] Comment on above: Performed By: #### L [id number] ####[facility] ([facility])[address] [place] [address] Creatinine [Mass/Vol] 0.95 mg/dL Normal 0.70-1.30 [facility] Comment on above: Performed By: #### L [id number] ####[facility] ([facility])[address] [place] [address] GLOMERULAR FILTRATION RATE ML/MIN/1.73 SQ M.PREDICTED 81.9 mL/min/1.73m*2 Normal >60.0 [facility] Comment on above: Result Comment: [facility]???s estimated glomerular filtration rate (eGFR) will no [...] of individuals. Performed By: #### L [id number] ####[facility] [place] [address] Glucose [Mass/Vol] 90 mg/dL Normal 70-100 [facility] Comment on above: Performed By: #### L [id number] ####[facility] ([facility] [place] [address] Potassium [Moles/Vol] 3.8 mmol/L Normal 3.5-5.1 [facility] Comment on above: Performed By: #### L [id number] ####[facility] ([facility] [place] [address] Sodium [Moles/Vol] 140 mmol/L Normal 136-145 [facility] Comment on above: Performed By: #### L [id number] ####[facility] ([facility] [place] [address] Urea nitrogen [Mass/Vol] 21 mg/dL Normal 7-25 [facility] Comment on above: Performed By: #### L [id number] ####[facility] ([facility])[address] [place] [address] UREA NITROGEN/CREATININE (MASS RATIO) IN SER/PLAS 22.1 Normal [facility] Comment on above: Performed By: #### L [id number] ####[facility] ([facility])[address] [place] [address] CBCon 03-06-2024 Erythrocyte distribution width (RBC) [Ratio] 13.3 % Normal 11.5-15.0 [facility] Comment on above: Performed By: #### L [id number] ####[facility] ([facility] [place] [address] ERYTHROCYTE MEAN CORPUSCULAR HEMOGLOBIN CONCENTRATION (G/DL) BY AUTOMATED 31.9 g/dL Low 32.0-35.0 [facility] Comment on above: Performed By: #### L [id number] ####[facility] ([facility] [place] [address] Hematocrit (Bld) [Volume fraction] 38.3 % Low 39.0-55.0 [facility] Comment on above: Performed By: #### L [id number] ####[facility] (BEAKER)[address] [place] [address] Hemoglobin (Bld) [Mass/Vol] 12.2 g/dL Low 13.0-17.0 [facility] Comment on above: Performed By: #### L [id number] ####[facility] ([facility])[address] [place] [address] MCH (RBC) [Entitic mass] 31.9 pg Normal 27.0-33.0 [facility] Comment on above: Performed By: #### L [id number] ####[facility] ([facility])[address] [place] [address] MCV (RBC) [Entitic vol] 100.3 fL High 82.0-98.0 [facility] Comment on above: Performed By: #### L [id number] ####[facility] ([facility])[address] [place] [address] PLATELETS (10*3/UL) IN BLOOD AUTOMATED COUNT 196 10*3/uL Normal 150-400 [facility] Comment on above: Performed By: #### L [id number] ####[facility] ([facility])[address] [place] [address] RBC (Bld) [#/Vol] 3.82 10*6/uL Low 4.20-5.70 [facility] Comment on above: Performed By: #### L [id number] ####[facility] ([facility])[address] [place] [address] WBC (Bld) [#/Vol] 7.67 10*3/uL Normal 4.00-10.60 [facility] Comment on above: Performed By: #### L [id number] ####[facility] ([facility])[address] [place] [address] CONSULTon 03-06-2024 CONSULT Normal [facility] DSon 03-06-2024 DS Normal [facility] NURSNOTEon 03-06-2024 NURSNOTE This RN called and gave report to Receiving nurse at [place]. Nurse denied further questions. Report given to Transport bedside. Transport has discharge packet. Normal [facility] PRO-BNPon 03-06-2024 Natriuretic peptide B (Bld) [Mass/Vol] 800 pg/mL High 0-300 [facility] Comment on above: Result Comment: An a ge-independent cutoff point of 300 pg/ml has a 98% negative predictive value excluding acute heart failure.Test Performed by [facility] [id number] [place] [address] - Released 03/06/2024 15:37 Performed By: #### L [id number] ####[employer] [id number] [place] [address] 30on 03-05-2024 30 Normal [facility] 30 Normal [facility] 30 Normal [facility] BASIC METABOLIC PANELon 02-13 Anion gap [Moles/Vol] 9 mmol/L Normal 7-20 [facility] Comment on above: Performed By: #### L [id number] ####[facility] ([facility])[address] [place] [address] Calcium [Mass/Vol] 8.4 mg/dL Low 8.6-10.3 [facility] Comment on above: Performed By: #### L [id number] ####[facility] ([facility])[address] [place] [address] Chloride [Moles/Vol] 104 mmol/L Normal 98-107 [facility] Comment on above: Performed By: #### L [id number] ####[facility] ([facility])[address] [place] [address] CO2 [Moles/Vol] 33 mmol/L High 21-31 [facility] Comment on above: Performed By: #### L [id number] ####[facility] ([facility])[address] [place] [address] Creatinine [Mass/Vol] 1.02 mg/dL Normal 0.70-1.30 [facility] Comment on above: Performed By: #### L [id number] ####[facility] ([facility])[address] [place] [address] GLOMERULAR FILTRATION RATE ML/MIN/1.73 SQ M.PREDICTED 75.2 mL/min/1.73m*2 Normal >60.0 [facility] Comment on above: Result Comment: The [facility]???s estimated glomerular filtration rate (eGFR) will no [...] of individuals. Performed By: #### L [id number] ####[facility] ([facility])[address] [place] [address] Glucose [Mass/Vol] 88 mg/dL Normal 70-100 [facility] Comment on above: Performed By: #### L [id number] ####[facility] ([facility])[address] [place] [address] Potassium [Moles/Vol] 3.8 mmol/L Normal 3.5-5.1 [facility] Comment on above: Performed By: #### L [id number] ####[facility] ([facility])[address] [place] [address] Sodium [Moles/Vol] 142 mmol/L Normal 136-145 [facility] Comment on above: Performed By: #### L [id number] ####[facility] ([facility])[address] [place] [address] Urea nitrogen [Mass/Vol] 25 mg/dL Normal 7-25 [facility] Comment on above: Performed By: #### L [id number] ####[facility] ([facility])[address] [place] [address] UREA NITROGEN/CREATININE (MASS RATIO) IN SER/PLAS 24.5 Normal [facility] Comment on above: Performed By: #### L [id number] ####[facility] [place] [address] CBC WITH AUTO DIFFERENTIALon 03-05-2024 Basophils (Bld) [#/Vol] 0.01 10*3/uL Normal 0.00-0.20 [facility] Comment on above: Performed By: #### L [id number] ####[facility] ([facility])[address] [place] [address] Basophils/100 WBC (Bld) 0.1 % Normal 0.0-1.0 [facility] Comment on above: Performed By: #### L [id number] ####[facility] ([facility])[address] [place] [address] Eosinophils (Bld) [#/Vol] 0.08 10*3/uL Normal 0.00-0.50 [facility] Comment on above: Performed By: #### L [id number] ####[facility] ([facility])[address] [place] [address] Eosinophils/100 WBC (Bld) 1.0 % Normal 0.0-6.0 [facility] Comment on above: Performed By: #### L [id number] ####[facility] ([facility])[address] [place] [address] Erythrocyte distribution width (RBC) [Ratio] 13.2 % Normal 11.5-15.0 [facility] Comment on above: Performed By: #### L [id number] ####[facility] ([facility])[address] [place] [address] ERYTHROCYTE MEAN CORPUSCULAR HEMOGLOBIN CONCENTRATION (G/DL) BY AUTOMATED 32.3 g/dL Normal 32.0-35.0 [facility] Comment on above: Performed By: #### L [id number] ####[facility] ([facility])[address] [place] [address] Hematocrit (Bld) [Volume fraction] 37.5 % Low 39.0-55.0 [facility] Comment on above: Performed By: #### L [id number] ####[facility] ([facility])[address] [place] [address] Hemoglobin (Bld) [Mass/Vol] 12.1 g/dL Low 13.0-17.0 [facility] Comment on above: Performed By: #### L [id number] ####[facility] ([facility] [place] [address] Immature granulocytes (Bld) [#/Vol] 0.09 10*3/uL Normal 0.00-0.20 [facility] Comment on above: Performed By: #### L [id number] ####[facility] ([facility])[address] [place] [address] Immature granulocytes/100 WBC (Bld) 1.1 % High 0.0-1.0 [facility] Comment on above: Performed By: #### L [id number] ####[facility] ([facility])[address] [place] [address] Lymphocytes (Bld) [#/Vol] 1.27 10*3/uL Normal 1.20-4.00 [facility] Comment on above: Performed By: #### L [id number] ####[facility] ([facility])[address] [place] [address] Lymphocytes/100 WBC (Bld) 15.4 % Low 20.0-45.0 [facility] Comment on above: Performed By: #### L [id number] ####[facility] ([facility] [place] [address] MCH (RBC) [Entitic mass] 31.6 pg Normal 27.0-33.0 [facility] Comment on above: Performed By: #### L [id number] ####[facility] ([facility] [place] [address] MCV (RBC) [Entitic vol] 97.9 fL Normal 82.0-98.0 [facility] Comment on above: Performed By: #### L [id number] ####[facility] ([facility]ER)[address] [place] [address] Monocytes (Bld) [#/Vol] 0.65 10*3/uL Normal 0.10-1.00 [facility] Comment on above: Performed By: #### L [id number] ####[facility] ([facility] [place] [address] Monocytes/100 WBC (Bld) 7.9 % Normal 5.0-12.0 [facility] Comment on above: Performed By: #### L [id number] ####[facility] ([facility])[address] [place] [address] Neutrophils (Bld) [#/Vol] 6.14 10*3/uL Normal 1.60-7.60 [facility] Comment on above: Performed By: #### L [id number] ####[facility] ([facility])[address] [place] [address] Neutrophils/100 WBC (Bld) 74.5 % High 40.0-72.0 [facility] Comment on above: Performed By: #### L [id number] ####[facility] ([facility])[address] [place] [address] NRBC (PER 100 WBCS) BY AUTOMATED COUNT 0.0 % Normal 0 [facility] Comment on above: Performed By: #### L [id number] ####[facility] ([facility])[address] [place] [address] PLATELETS (10*3/UL) IN BLOOD AUTOMATED COUNT 190 10*3/uL Normal 150-400 [facility] Comment on above: Performed By: #### L [id number] ####[facility] ([facility] [place] [address] RBC (Bld) [#/Vol] 3.83 10*6/uL Low 4.20-5.70 [facility] Comment on above: Performed By: #### L [id number] ####[facility] ([facility] [place], [place] [address] WBC (Bld) [#/Vol] 8.24 10*3/uL Normal 4.00-10.60 [facility] Comment on above: Performed By: #### L [id number] ####[facility] ([facility])[address] [place] [address] MAGNESIUMon 03-05-2024 Magnesium [Mass/Vol] 1.8 mg/dL Low 1.9-2.7 [facility] Comment on above: Performed By: #### L [id number] ####[facility] ([facility] [facility] [address] PHOSPHORUSon 03-05-2024 Magnesium [Mass/Vol] 3.8 mg/dL Normal 2.5-5.0 [facility] Comment on above: Performed By: #### L [id number] ####[facility] ([facility])[address] [facility] [address] 30on 03-04-2024 30 Normal [facility] 30 The patient is Moderately Stable - Low risk of patient condition declining or worsening The patient's goals for the shift include Rest The clinical goals for the shift include VSS, safety, rest Normal [facility] ANESon 03-04-2024 ANES Normal [facility] APTTon 03-04-2024 ACTIVATED PARTIAL THROMBOPLASTIN TIME IN PPP BY COAGULATION ASSAY 110.7 Seconds High 25.0-35.0 [facility] Comment on above: Result Comment: Clin ical significance of the APTT is questionable in the presence of heparin. Performed By: #### L [id number] ####[facility] ([facility])[address] [place] [address] ACTIVATED PARTIAL THROMBOPLASTIN TIME IN PPP BY COAGULATION ASSAY 135.9 Seconds Critically high 25.0-35.0 [facility] Comment on above: Result Comment: Clin ical significance of the APTT is questionable in the presence of heparin. Performed By: #### L [id number] ####[facility] ([facility])[address] [place] [address] B-TYPE NATRIURETIC PEPTIDEon 03-04-2024 Natriuretic peptide B (Bld) [Mass/Vol] 178 pg/mL High 0-100 [facility] Comment on above: Performed By: #### L [id number] ####[facility] (BEAKER)[address] [facility] [place] [address] BASIC METABOLIC PANELon 10-2 Anion gap [Moles/Vol] 11 mmol/L Normal 7-20 [facility] Comment on above: Performed By: #### L [id number] ####[facility] ([facility])[address] [place] [address] Calcium [Mass/Vol] 8.5 mg/dL Low 8.6-10.3 [facility] Comment on above: Performed By: #### L [id number] ####[facility] ([facility])[address] [place] [address] Chloride [Moles/Vol] 104 mmol/L Normal 98-107 [facility] Comment on above: Performed By: #### L [id number] ####[facility] ([facility])[address] [place] [address] CO2 [Moles/Vol] 29 mmol/L Normal 21-31 [facility] Comment on above: Performed By: #### L [id number] ####[facility] ([facility])[address] [place] [address] Creatinine [Mass/Vol] 0.94 mg/dL Normal 0.70-1.30 [facility] Comment on above: Performed By: #### L [id number] ####[facility] ([facility])[address] [place] [address] GLOMERULAR FILTRATION RATE ML/MIN/1.73 SQ M.PREDICTED 83.0 mL/min/1.73m*2 Normal >60.0 [facility] Comment on above: Result Comment: The [facility]???s estimated glomerular filtration rate (eGFR) will no [...] of individuals. Performed By: #### L [id number] ####[facility] [place] [address] Glucose [Mass/Vol] 108 mg/dL High 70-100 [facility] Comment on above: Performed By: #### L [id number] ####[facility] ([facility])[address] [place] [address] Potassium [Moles/Vol] 3.8 mmol/L Normal 3.5-5.1 [facility] Comment on above: Performed By: #### L [id number] ####[facility] ([facility])[address] [place] [address] Sodium [Moles/Vol] 140 mmol/L Normal 136-145 [facility] Comment on above: Performed By: #### L [id number] ####[facility] ([facility])[address] [place] [address] Urea nitrogen [Mass/Vol] 29 mg/dL High 7-25 [facility] Comment on above: Performed By: #### L [id number] ####[facility] ([facility])[address] [place] [address] UREA NITROGEN/CREATININE (MASS RATIO) IN SER/PLAS 30.9 Normal [facility] Comment on above: Performed By: #### L [id number] ####[facility] ([facility])[address] [place] [address] CBC WITH AUTO DIFFERENTIALon 03-04-2024 Basophils (Bld) [#/Vol] 0.02 10*3/uL Normal 0.00-0.20 [facility] Comment on above: Performed By: #### L [id number] ####[facility] ([facility])[address] [place] [address] Basophils/100 WBC (Bld) 0.2 % Normal 0.0-1.0 [facility] Comment on above: Performed By: #### L [id number] ####[facility] ([facility])[address] [place] [address] Eosinophils (Bld) [#/Vol] 0.00 10*3/uL Normal 0.00-0.50 [facility] Comment on above: Performed By: #### L [id number] ####[facility] ([facility]ER)[address] [place] [address] Eosinophils/100 WBC (Bld) 0.0 % Normal 0.0-6.0 [facility] Comment on above: Performed By: #### L [id number] ####[facility] ([facility]ER)[address] [place] [address] Erythrocyte distribution width (RBC) [Ratio] 13.2 % Normal 11.5-15.0 [facility] Comment on above: Performed By: #### L [id number] ####[facility] ([facility]ER)[address] [place] [address] ERYTHROCYTE MEAN CORPUSCULAR HEMOGLOBIN CONCENTRATION (G/DL) BY AUTOMATED 31.5 g/dL Low 32.0-35.0 [facility] Comment on above: Performed By: #### L [id number] ####[facility] ([facility]ER)[address] [place] [address] Hematocrit (Bld) [Volume fraction] 38.7 % Low 39.0-55.0 [facility] Comment on above: Performed By: #### L [id number] ####[facility] ([facility])[address] [place] [address] Hemoglobin (Bld) [Mass/Vol] 12.2 g/dL Low 13.0-17.0 [facility] Comment on above: Performed By: #### L [id number] ####[facility] ([facility])[address] [place] [address] Immature granulocytes (Bld) [#/Vol] 0.12 10*3/uL Normal 0.00-0.20 [facility] Comment on above: Performed By: #### L [id number] ####[facility] ([facility]AKER)[address] [place] [address] Immature granulocytes/100 WBC (Bld) 1.2 % High 0.0-1.0 [facility] Comment on above: Performed By: #### L [id number] ####[facility] ([facility])[address] [place] [address] Lymphocytes (Bld) [#/Vol] 1.13 10*3/uL Low 1.20-4.00 [facility] Comment on above: Performed By: #### L [id number] ####[facility] ([facility] [place])[address] [place] [address] Lymphocytes/100 WBC (Bld) 11.3 % Low 20.0-45.0 [facility] Comment on above: Performed By: #### L [id number] ####[facility] ([facility] [place])[address] [place] [address] MCH (RBC) [Entitic mass] 31.7 pg Normal 27.0-33.0 [facility] Comment on above: Performed By: #### L [id number] ####[facility] ([facility])[address] [place] [address] MCV (RBC) [Entitic vol] 100.5 fL High 82.0-98.0 [facility] Comment on above: Performed By: #### L [id number] ####[facility] ([facility])[address] [place] [address] Monocytes (Bld) [#/Vol] 0.87 10*3/uL Normal 0.10-1.00 [facility] Comment on above: Performed By: #### L [id number] ####[facility] ([facility])[address] [place] [address] Monocytes/100 WBC (Bld) 8.7 % Normal 5.0-12.0 [facility] Comment on above: Performed By: #### L [id number] ####[facility] ([facility])[address] [place] [address] Neutrophils (Bld) [#/Vol] 7.88 10*3/uL High 1.60-7.60 [facility] Comment on above: Performed By: #### L [id number] ####[facility] ([facility])[address] [place] [address] Neutrophils/100 WBC (Bld) 78.6 % High 40.0-72.0 [facility] Comment on above: Performed By: #### L [id number] ####[facility] [place] [address] NRBC (PER 100 WBCS) BY AUTOMATED COUNT 0.0 % Normal 0 [facility] Comment on above: Performed By: #### L [id number] ####[facility] [place] [address] PLATELETS (10*3/UL) IN BLOOD AUTOMATED COUNT 182 10*3/uL Normal 150-400 [facility] Comment on above: Performed By: #### L [id number] ####[facility] ([facility])[address] [place] [address] RBC (Bld) [#/Vol] 3.85 10*6/uL Low 4.20-5.70 [facility] Comment on above: Performed By: #### L [id number] ####[facility] [place] [address] WBC (Bld) [#/Vol] 10.02 10*3/uL Normal 4.00-10.60 [facility] Comment on above: Performed By: #### L [id number] ####[facility] [place] [address] CONSULTon 03-04-2024 CONSULT Normal [facility] HPon 03-04-2024 HP Normal [facility] MAGNESIUMon 03-04-2024 Magnesium [Mass/Vol] 1.8 mg/dL Low 1.9-2.7 [facility] Comment on above: Performed By: #### L [id number] ####[facility] ([facility]ER)[address] [place] [address] PHOSPHORUSon 03-04-2024 Magnesium [Mass/Vol] 3.1 mg/dL Normal 2.5-5.0 [facility] Comment on above: Performed By: #### L [id number] ####[facility] ([facility])[address] [place] [address] 30on 03-03-2024 30 Normal [facility] 30 Normal [facility] 30 Normal [facility] 30 Normal [facility] APTTon 03-03-2024 ACTIVATED PARTIAL THROMBOPLASTIN TIME IN PPP BY COAGULATION ASSAY 147.8 Seconds Critically high 25.0-35.0 [facility] Comment on above: Result Comment: Clin ical significance of the APTT is questionable in the presence of heparin. Performed By: #### L [id number] ####[facility] ([facility])[address] [place] [address] ACTIVATED PARTIAL THROMBOPLASTIN TIME IN PPP BY COAGULATION ASSAY 124.5 Seconds High 25.0-35.0 [facility] Comment on above: Result Comment: Clin ical significance of the APTT is questionable in the presence of heparin. Performed By: #### L [id number] ####[facility] ([facility])[address] [place] [address] ACTIVATED PARTIAL THROMBOPLASTIN TIME IN PPP BY COAGULATION ASSAY 169.5 Seconds Critically high 25.0-35.0 [facility] Comment on above: Order Comment: Check aPTT every 6 hours while on heparin infusion, or per protocol. Result Comment: Clin ical significance of the APTT is questionable in the presence of heparin. Performed By: #### L [id number] ####[facility] ([facility])[address] [place] [address] BASIC METABOLIC PANELon 02-13 Anion gap [Moles/Vol] 9 mmol/L Normal -20 [facility] Comment on above: Performed By: #### L [id number] ####[facility] ([facility])[address] [facility] [address] Calcium [Mass/Vol] 8.2 mg/dL Low 8.6-10.3 [facility] Comment on above: Performed By: #### L [id number] ####[facility] ([facility])[address] [place] [address] Chloride [Moles/Vol] 103 mmol/L Normal 98-107 [facility] Comment on above: Performed By: #### L [id number] ####[facility] ([facility]ER)[address] [place] [address] CO2 [Moles/Vol] 32 mmol/L High 21-31 [facility] Comment on above: Performed By: #### L [id number] ####[facility] [place] [address] Creatinine [Mass/Vol] 0.93 mg/dL Normal 0.70-1.30 [facility] Comment on above: Performed By: #### L [id number] ####[facility] ([facility] [place] [address] GLOMERULAR FILTRATION RATE ML/MIN/1.73 SQ M.PREDICTED 84.0 mL/min/1.73m*2 Normal >60.0 [facility] Comment on above: Result Comment: The [facility]???s estimated glomerular filtration rate (eGFR) will no [...] of individuals. Performed By: #### L [id number] ####[facility] ([facility]ER)[address] [place] [address] Glucose [Mass/Vol] 110 mg/dL High 70-100 [facility] Comment on above: Performed By: #### L [id number] ####[facility] ([facility]ER)[address] [place] [address] Potassium [Moles/Vol] 3.3 mmol/L Low 3.5-5.1 [facility] Comment on above: Performed By: #### L [id number] ####[facility] ([facility])[address] [place] [address] Sodium [Moles/Vol] 141 mmol/L Normal 136-145 [facility] Comment on above: Performed By: #### L [id number] ####[facility] ([facility])[address] [place] [address] Urea nitrogen [Mass/Vol] 27 mg/dL High 7-25 [facility] Comment on above: Performed By: #### L [id number] ####[facility] ([facility])[address] [place] [address] UREA NITROGEN/CREATININE (MASS RATIO) IN SER/PLAS 29.0 Normal [facility] Comment on above: Performed By: #### L [id number] ####[facility] ([facility])[address] [place] [address] CBC WITH AUTO DIFFERENTIALon 03-03-2024 Basophils (Bld) [#/Vol] 0.01 10*3/uL Normal 0.00-0.20 [facility] Comment on above: Performed By: #### L [id number] ####[facility] ([facility] [place] [address] Basophils/100 WBC (Bld) 0.1 % Normal 0.0-1.0 [facility] Comment on above: Performed By: #### L [id number] ####[facility] ([facility] [place] [address] Eosinophils (Bld) [#/Vol] 0.00 10*3/uL Normal 0.00-0.50 [facility] Comment on above: Performed By: #### L [id number] ####[facility] ([facility] [place] [address] Eosinophils/100 WBC (Bld) 0.0 % Normal 0.0-6.0 [facility] Comment on above: Performed By: #### L [id number] ####[facility] ([facility] [place] [address] Erythrocyte distribution width (RBC) [Ratio] 13.2 % Normal 11.5-15.0 [facility] Comment on above: Performed By: #### L [id number] ####[facility] ([facility])[address] [place] [address] ERYTHROCYTE MEAN CORPUSCULAR HEMOGLOBIN CONCENTRATION (G/DL) BY AUTOMATED 32.1 g/dL Normal 32.0-35.0 [facility] Comment on above: Performed By: #### L [id number] ####[facility] ([facility])[address] [place] [address] Hematocrit (Bld) [Volume fraction] 38.0 % Low 39.0-55.0 [facility] Comment on above: Performed By: #### L [id number] ####[facility] ([facility])[address] [place] [address] Hemoglobin (Bld) [Mass/Vol] 12.2 g/dL Low 13.0-17.0 [facility] Comment on above: Performed By: #### L [id number] ####[facility] ([facility])[address] [place] [address] Immature granulocytes (Bld) [#/Vol] 0.07 10*3/uL Normal 0.00-0.20 [facility] Comment on above: Performed By: #### L [id number] ####[facility] ([facility])[address] [place] [address] Immature granulocytes/100 WBC (Bld) 0.7 % Normal 0.0-1.0 [facility] Comment on above: Performed By: #### L [id number] ####[facility] ([facility] [place] [address] Lymphocytes (Bld) [#/Vol] 1.03 10*3/uL Low 1.20-4.00 [facility] Comment on above: Performed By: #### L [id number] ####[facility] ([facility]ER)[address] [place] [address] Lymphocytes/100 WBC (Bld) 10.2 % Low 20.0-45.0 [facility] Comment on above: Performed By: #### L [id number] ####[facility] ([facility]ER)[address] [place] [address] MCH (RBC) [Entitic mass] 31.4 pg Normal 27.0-33.0 [facility] Comment on above: Performed By: #### L [id number] ####[facility] ([facility])[address] [place] [address] MCV (RBC) [Entitic vol] 97.7 fL Normal 82.0-98.0 [facility] Comment on above: Performed By: #### L [id number] ####[facility] ([facility]ER)[address] [place] [address] Monocytes (Bld) [#/Vol] 1.01 10*3/uL High 0.10-1.00 [facility] Comment on above: Performed By: #### L [id number] ####[facility] ([facility]ER)[address] [place] [address] Monocytes/100 WBC (Bld) 10.0 % Normal 5.0-12.0 [facility] Comment on above: Performed By: #### L [id number] ####[facility] ([facility])[address] [place] [address] Neutrophils (Bld) [#/Vol] 8.01 10*3/uL High 1.60-7.60 [facility] Comment on above: Performed By: #### L [id number] ####[facility] ([facility])[address] [place] [address] Neutrophils/100 WBC (Bld) 79.0 % High 40.0-72.0 [facility] Comment on above: Performed By: #### L [id number] ####[facility] ([facility])[address] [place] [address] NRBC (PER 100 WBCS) BY AUTOMATED COUNT 0.0 % Normal 0 [facility] Comment on above: Performed By: #### L [id number] ####[facility] ([facility])[address] [facility] [address] PLATELETS (10*3/UL) IN BLOOD AUTOMATED COUNT 164 10*3/uL Normal 150-400 [facility] Comment on above: Performed By: #### L [id number] ####[facility] ([facility])[address] [place] [address] RBC (Bld) [#/Vol] 3.89 10*6/uL Low 4.20-5.70 [facility] Comment on above: Performed By: #### L [id number] ####[facility] ([facility])[address] [facility] [address] WBC (Bld) [#/Vol] 10.13 10*3/uL Normal 4.00-10.60 [facility] Comment on above: Performed By: #### L [id number] ####[facility] ([facility])[address] [facility] [place] [address] CLOSTRIDIOIDES DIFFICILE DNA AMPLIFICATIONon 03-03-2024 CLOSTRIDIOIDES DIFFICILE (TOXIN A/B) Negative Normal Negative [facility] Comment on above: Order Comment: [...] A gene sequence. Performed By: #### L [id number] ####[facility] ([facility])[address] [place] [address] MAGNESIUMon 03-03-2024 Magnesium [Mass/Vol] 1.9 mg/dL Normal 1.9-2.7 [facility] Comment on above: Performed By: #### L [id number] ####[facility] ([facility])[address] [place] [address] NURSNOTEon 03-03-2024 NURSNOTE Normal [facility] NURSNOTE Normal [facility] PHOSPHORUSon 03-03-2024 Magnesium [Mass/Vol] 2.7 mg/dL Normal 2.5-5.0 [facility] Comment on above: Performed By: #### L [id number] ####[facility] ([facility])[address] [place] [address] 30on 03-02-2024 30 The patient is Moderately Stable - Low risk of patient condition declining or worsening The patient's goals for the shift include Comfort The clinical goals for the shift include VSS, safety Normal [facility] APTTon 03-02-2024 ACTIVATED PARTIAL THROMBOPLASTIN TIME IN PPP BY COAGULATION ASSAY 127.4 Seconds High 25.0-35.0 [facility] Comment on above: Order Comment: Check aPTT every 6 hours while on heparin infusion, or per protocol. Result Comment: Clin ical significance of the APTT is questionable in the presence of heparin. Performed By: #### L [id number] ####[facility] ([facility])[address] [place] [address] ACTIVATED PARTIAL THROMBOPLASTIN TIME IN PPP BY COAGULATION ASSAY 106.1 Seconds High 25.0-35.0 [facility] Comment on above: Order Comment: Check aPTT every 6 hours while on heparin infusion, or per protocol. Result Comment: Clin ical significance of the APTT is questionable in the presence of heparin. Performed By: #### L [id number] ####[facility] ([facility])[address] [place] [address] BASIC METABOLIC PANELon 02-12 Anion gap [Moles/Vol] 10 mmol/L Normal 7-20 [facility] Comment on above: Performed By: #### L [id number] ####[facility] ([facility])[address] [place] [address] Calcium [Mass/Vol] 8.1 mg/dL Low 8.6-10.3 [facility] Comment on above: Performed By: #### L [id number] ####[facility] ([facility])[address] [place] [address] Chloride [Moles/Vol] 104 mmol/L Normal 98-107 [facility] Comment on above: Performed By: #### L [id number] ####[facility] ([facility])[address] [place] [address] CO2 [Moles/Vol] 30 mmol/L Normal 21-31 [facility] Comment on above: Performed By: #### L [id number] ####[facility] ([facility])[address] [place] [address] Creatinine [Mass/Vol] 0.97 mg/dL Normal 0.70-1.30 [facility] Comment on above: Performed By: #### L [id number] ####[facility] ([facility])[address] [place] [address] GLOMERULAR FILTRATION RATE ML/MIN/1.73 SQ M.PREDICTED 79.9 mL/min/1.73m*2 Normal >60.0 [facility] Comment on above: Result Comment: The [facility]???s estimated glomerular filtration rate (eGFR) will no [...] of individuals. Performed By: #### L [id number] ####[facility] ([facility])[address] [place] [address] Glucose [Mass/Vol] 136 mg/dL High 70-100 [facility] Comment on above: Performed By: #### L [id number] ####[facility] ([facility])[address] [place] [address] Potassium [Moles/Vol] 3.0 mmol/L Low 3.5-5.1 [facility] Comment on above: Performed By: #### L [id number] ####[facility] ([facility])[address] [place] [address] Sodium [Moles/Vol] 141 mmol/L Normal 136-145 [facility] Comment on above: Performed By: #### L [id number] ####[facility] ([facility])[address] [place] [address] Urea nitrogen [Mass/Vol] 37 mg/dL High 7-25 [facility] Comment on above: Performed By: #### L [id number] ####[facility] ([facility])[address] [place] [address] UREA NITROGEN/CREATININE (MASS RATIO) IN SER/PLAS 38.1 Normal [facility] Comment on above: Performed By: #### L [id number] ####[facility] ([facility])[address] [place] [address] CBC WITH AUTO DIFFERENTIALon 03-02-2024 Basophils (Bld) [#/Vol] 0.01 10*3/uL Normal 0.00-0.20 [facility] Comment on above: Performed By: #### L [id number] ####[facility] ([facility])[address] [place] [address] Basophils/100 WBC (Bld) 0.1 % Normal 0.0-1.0 [facility] Comment on above: Performed By: #### L [id number] ####[facility] ([facility])[address] [place] [address] Eosinophils (Bld) [#/Vol] 0.00 10*3/uL Normal 0.00-0.50 [facility] Comment on above: Performed By: #### L [id number] ####[facility] ([facility]ER)[address] [place] [address] Eosinophils/100 WBC (Bld) 0.0 % Normal 0.0-6.0 [facility] Comment on above: Performed By: #### L [id number] ####[facility] [place] [address] Erythrocyte distribution width (RBC) [Ratio] 12.9 % Normal 11.5-15.0 [facility] Comment on above: Performed By: #### L [id number] ####[facility] ([facility])[address] [place] [address] ERYTHROCYTE MEAN CORPUSCULAR HEMOGLOBIN CONCENTRATION (G/DL) BY AUTOMATED 32.3 g/dL Normal 32.0-35.0 [facility] Comment on above: Performed By: #### L [id number] ####[facility] [place] [address] Hematocrit (Bld) [Volume fraction] 36.8 % Low 39.0-55.0 [facility] Comment on above: Performed By: #### L [id number] ####[facility] ([facility]ER)[address] [place] [address] Hemoglobin (Bld) [Mass/Vol] 11.9 g/dL Low 13.0-17.0 [facility] Comment on above: Performed By: #### L [id number] ####[facility] ([facility])[address] [place] [address] Immature granulocytes (Bld) [#/Vol] 0.05 10*3/uL Normal 0.00-0.20 [facility] Comment on above: Performed By: #### L [id number] ####[facility] ([facility]ER)[address] [place] [address] Immature granulocytes/100 WBC (Bld) 0.7 % Normal 0.0-1.0 [facility] Comment on above: Performed By: #### L [id number] ####[facility] [place] [address] Lymphocytes (Bld) [#/Vol] 0.58 10*3/uL Low 1.20-4.00 [facility] Comment on above: Performed By: #### L [id number] ####[facility] ([facility])[address] [place] [address] Lymphocytes/100 WBC (Bld) 7.8 % Low 20.0-45.0 [facility] Comment on above: Performed By: #### L [id number] ####[facility] ([facility])[address] [place] [address] MCH (RBC) [Entitic mass] 32.1 pg Normal 27.0-33.0 [facility] Comment on above: Performed By: #### L [id number] ####[facility] ([facility])[address] [place] [address] MCV (RBC) [Entitic vol] 99.2 fL High 82.0-98.0 [facility] Comment on above: Performed By: #### L [id number] ####[facility] ([facility])[address] [place] [address] Monocytes (Bld) [#/Vol] 0.56 10*3/uL Normal 0.10-1.00 [facility] Comment on above: Performed By: #### L [id number] ####[facility] [place] [address] Monocytes/100 WBC (Bld) 7.5 % Normal 5.0-12.0 [facility] Comment on above: Performed By: #### L [id number] ####[facility] (BEAKER)[address] [place] [address] Neutrophils (Bld) [#/Vol] 6.28 10*3/uL Normal 1.60-7.60 [facility] Comment on above: Performed By: #### L [id number] ####[facility] [place] [address] Neutrophils/100 WBC (Bld) 83.9 % High 40.0-72.0 [facility] Comment on above: Performed By: #### L [id number] ####[facility] ([facility])[address] [place] [address] NRBC (PER 100 WBCS) BY AUTOMATED COUNT 0.0 % Normal 0 [facility] Comment on above: Performed By: #### L [id number] ####[facility] ([facility])[address] [place] [address] PLATELETS (10*3/UL) IN BLOOD AUTOMATED COUNT 159 10*3/uL Normal 150-400 [facility] Comment on above: Performed By: #### L [id number] ####[facility] ([facility])[address] [place] [address] RBC (Bld) [#/Vol] 3.71 10*6/uL Low 4.20-5.70 [facility] Comment on above: Performed By: #### L [id number] ####[facility] ([facility])[address] [place] [address] WBC (Bld) [#/Vol] 7.48 10*3/uL Normal 4.00-10.60 [facility] Comment on above: Performed By: #### L [id number] ####[facility] ([facility])[address] [place] [address] MAGNESIUMon 03-02-2024 Magnesium [Mass/Vol] 1.9 mg/dL Normal 1.9-2.7 [facility] Comment on above: Performed By: #### L [id number] ####[facility] ([facility])[address] [place] [address] NURSNOTEon 03-02-2024 NURSNOTE Normal [facility] PHOSPHORUSon 03-02-2024 Magnesium [Mass/Vol] 3.4 mg/dL Normal 2.5-5.0 [facility] Comment on above: Performed By: #### L [id number] ####[facility] ([facility]ER)[address] [place] [address] VENOUS BLOOD GAS WITH IONIZE D CALCIUMon 03-02-2024 Base excess Calc (BldV) [Moles/Vol] 4.3 mmol/L Normal [facility] Comment on above: Performed By: #### L [id number] ####[facility] RESPIRATORY [id number] [place] [address] [facility] CALCIUM IONIZED (MMOL/L) IN BLOOD 1.19 mmol/L Normal 1.15-1.33 [facility] Comment on above: Performed By: #### L [id number] ####[facility] RESPIRATORY [id number] [place] [address] [facility] CO2 (BldV) [Partial pressure] 47 mm[Hg] Normal 40-50 [facility] Comment on above: Performed By: #### L [id number] ####[facility] RESPIRATORY [id number] [place] [address] [facility] HCO3 (Bld) [Moles/Vol] 29.8 mmol/L Normal [facility] Comment on above: Performed By: #### L [id number] ####[facility] RESPIRATORY [id number] [place] [address] [facility] Oxygen (BldV) [Partial pressure] 46 mm[Hg] High 35-45 [facility] Comment on above: Performed By: #### L [id number] ####[facility] RESPIRATORY [id number] [place] [address] [facility] OXYGEN SATURATION (%) IN VENOUS BLOOD 76.1 % High 65.0-75.0 [facility] Comment on above: Performed By: #### L [id number] ####[facility] RESPIRATORY [id number] [place] [address] [place] PH OF VENOUS BLOOD 7.41 Normal 7.31-7.41 [facility] Comment on above: Performed By: #### L [id number] ####[facility] RESPIRATORY [id number] [place] [address] [place] 30on 03-01-2024 30 Normal [facility] BASIC METABOLIC PANELon 10- Anion gap [Moles/Vol] 10 mmol/L Normal 7-20 [facility] Comment on above: Performed By: #### L [id number] ####[facility] (BEAKER)[address] [place] [address] Calcium [Mass/Vol] 8.3 mg/dL Low 8.6-10.3 [facility] Comment on above: Performed By: #### L [id number] ####[facility] (BEAKER)[address] [place] [address] Chloride [Moles/Vol] 104 mmol/L Normal 98-107 [facility] Comment on above: Performed By: #### L [id number] ####[facility] (BEAKER)[address] [place] [address] CO2 [Moles/Vol] 29 mmol/L Normal 21-31 [facility] Comment on above: Performed By: #### L [id number] ####[facility] (BEAKER)[address] [place] [address] Creatinine [Mass/Vol] 0.99 mg/dL Normal 0.70-1.30 [facility] Comment on above: Performed By: #### L [id number] ####[facility] (BEAKER)[address] [place] [address] GLOMERULAR FILTRATION RATE ML/MIN/1.73 SQ M.PREDICTED 78.0 mL/min/1.73m*2 Normal >60.0 [facility] Comment on above: Result Comment: [facility]???s estimated glomerular filtration rate (eGFR) will no [...] of individuals. Performed By: #### L [id number] ####[facility] ([facility])[address] [place] [address] Glucose [Mass/Vol] 156 mg/dL High 70-100 [facility] Comment on above: Performed By: #### L [id number] ####[facility] ([facility])[address] [place] [address] Potassium [Moles/Vol] 3.4 mmol/L Low 3.5-5.1 [facility] Comment on above: Performed By: #### L [id number] ####[facility] ([facility])[address] [place] [address] Sodium [Moles/Vol] 140 mmol/L Normal 136-145 [facility] Comment on above: Performed By: #### L [id number] ####[facility] ([facility])[address] [place] [address] Urea nitrogen [Mass/Vol] 35 mg/dL High 7-25 [facility] Comment on above: Performed By: #### L [id number] ####[facility] ([facility])[address] [place] [address] UREA NITROGEN/CREATININE (MASS RATIO) IN SER/PLAS 35.4 [facility] Comment on above: Performed By: #### L [id number] ####[facility] ([facility])[address] [place] [address] BLOOD CULTUREon 03-01-2024 Bacteria identified Cx Nom (Bld) No growth at 5 days Normal [facility] Comment on above: Performed By: #### L [id number] ####[facility] ([facility])[address] [place] [address] CBC WITH AUTO DIFFERENTIALon 03-01-2024 Basophils (Bld) [#/Vol] 0.01 10*3/uL Normal 0.00-0.20 [facility] Comment on above: Performed By: #### L [id number] ####[facility] ([facility])[address] [place] [address] Basophils/100 WBC (Bld) 0.1 % Normal 0.0-1.0 [facility] Comment on above: Performed By: #### L [id number] ####[facility] (BEAKER)[address] [place] [address] Eosinophils (Bld) [#/Vol] 0.00 10*3/uL Normal 0.00-0.50 [facility] Comment on above: Performed By: #### L [id number] ####[facility] (BEAKER)[address] [place] [address] Eosinophils/100 WBC (Bld) 0.0 % Normal 0.0-6.0 [facility] Comment on above: Performed By: #### L [id number] ####[facility] (BEAKER)[address] [place] [address] Erythrocyte distribution width (RBC) [Ratio] 12.9 % Normal 11.5-15.0 [facility] Comment on above: Performed By: #### L [id number] ####[facility] (BEAKER)[address] [place] [address] ERYTHROCYTE MEAN CORPUSCULAR HEMOGLOBIN CONCENTRATION (G/DL) BY AUTOMATED 32.1 g/dL Normal 32.0-35.0 [facility] Comment on above: Performed By: #### L [id number] ####[facility] (BEAKER)[address] [place] [address] Hematocrit (Bld) [Volume fraction] 38.9 % Low 39.0-55.0 [facility] Comment on above: Performed By: #### L [id number] ####[facility] (BEAKER)[address] [place] [address] Hemoglobin (Bld) [Mass/Vol] 12.5 g/dL Low 13.0-17.0 [facility] Comment on above: Performed By: #### L [id number] ####[facility] (BEAKER)[address] [place] [address] Immature granulocytes (Bld) [#/Vol] 0.05 10*3/uL Normal 0.00-0.20 [facility] Comment on above: Performed By: #### L [id number] ####[facility] (BEAKER)[address] [place] [address] Immature granulocytes/100 WBC (Bld) 0.5 % Normal 0.0-1.0 [facility] Comment on above: Performed By: #### L [id number] ####[facility] (BEAKER)[address] [place] [address] Lymphocytes (Bld) [#/Vol] 0.42 10*3/uL Low 1.20-4.00 [facility] Comment on above: Performed By: #### L [id number] ####[facility] (BEAKER)[address] [place] [address] Lymphocytes/100 WBC (Bld) 4.2 % Low 20.0-45.0 [facility] Comment on above: Performed By: #### L [id number] ####[facility] (BEAKER)[address] [place] [address] MCH (RBC) [Entitic mass] 31.9 pg Normal 27.0-33.0 [facility] Comment on above: Performed By: #### L [id number] ####[facility] (BEAKER)[address] [place] [address] MCV (RBC) [Entitic vol] 99.2 fL High 82.0-98.0 [facility] Comment on above: Performed By: #### L [id number] ####[facility] (BEAKER)[address] [place] [address] Monocytes (Bld) [#/Vol] 0.45 10*3/uL Normal 0.10-1.00 [facility] Comment on above: Performed By: #### L [id number] ####[facility] (BEAKER)[address] [place] [address] Monocytes/100 WBC (Bld) 4.5 % Low 5.0-12.0 [facility] Comment on above: Performed By: #### L [id number] ####[facility] [place] [address] Neutrophils (Bld) [#/Vol] 9.11 10*3/uL High 1.60-7.60 [facility] Comment on above: Performed By: #### L [id number] ####[facility] ([facility])[address] [address] Neutrophils/100 WBC (Bld) 90.7 % High 40.0-72.0 [facility] Comment on above: Performed By: #### L [id number] ####[facility] ([facility])[address] [address] NRBC (PER 100 WBCS) BY AUTOMATED COUNT 0.0 % Normal 0 [facility] Comment on above: Performed By: #### L [id number] ####[facility] ([facility])[address] [address] PLATELETS (10*3/UL) IN BLOOD AUTOMATED COUNT 165 10*3/uL Normal 150-400 [facility] Comment on above: Performed By: #### L [id number] ####[facility] ([facility])[address] [address] RBC (Bld) [#/Vol] 3.92 10*6/uL Low 4.20-5.70 [facility] Comment on above: Performed By: #### L [id number] ####[facility] ([facility])[address] [address] WBC (Bld) [#/Vol] 10.04 10*3/uL Normal 4.00-10.60 [facility] Comment on above: Performed By: #### L [id number] ####[facility] [address] Basophils (Bld) [#/Vol] 0.01 10*3/uL Normal 0.00-0.20 [facility] Comment on above: Performed By: #### L [id number] ####[facility] (BEAKER)[address] [place] [address] Basophils/100 WBC (Bld) 0.1 % Normal 0.0-1.0 [facility] Comment on above: Performed By: #### L [id number] ####[facility] (BEAKER)[address] [place] [address] Eosinophils (Bld) [#/Vol] 0.00 10*3/uL Normal 0.00-0.50 [facility] Comment on above: Performed By: #### L [id number] ####[facility] (BEAKER)[address] [place], [place] [address] Eosinophils/100 WBC (Bld) 0.0 % Normal 0.0-6.0 [facility] Comment on above: Performed By: #### L [id number] ####[facility] (BEAKER)[address] [place] [address] Erythrocyte distribution width (RBC) [Ratio] 12.8 % Normal 11.5-15.0 [facility] Comment on above: Performed By: #### L [id number] ####[facility] (BEAKER)[address] [place], [place] [address] ERYTHROCYTE MEAN CORPUSCULAR HEMOGLOBIN CONCENTRATION (G/DL) BY AUTOMATED 31.9 g/dL Low 32.0-35.0 [facility] Comment on above: Performed By: #### L [id number] ####[facility] (BEAKER)[address] [place], [place] [address] Hematocrit (Bld) [Volume fraction] 37.9 % Low 39.0-55.0 [facility] Comment on above: Performed By: #### L [id number] ####[facility] (BEAKER)[address] [place], [place] [address] Hemoglobin (Bld) [Mass/Vol] 12.1 g/dL Low 13.0-17.0 [facility] Comment on above: Performed By: #### L [id number] ####[facility] (BEAKER)[address] [place] [address] Immature granulocytes (Bld) [#/Vol] 0.05 10*3/uL Normal 0.00-0.20 [facility] Comment on above: Performed By: #### L [id number] ####[facility] (BEAKER)[address] [place] [address] Immature granulocytes/100 WBC (Bld) 0.7 % Normal 0.0-1.0 [facility] Comment on above: Performed By: #### L [id number] ####[facility] (BEAKER)[address] [place] [address] Lymphocytes (Bld) [#/Vol] 0.43 10*3/uL Low 1.20-4.00 [facility] Comment on above: Performed By: #### L [id number] ####[facility] (BEAKER)[address] [place] [address] Lymphocytes/100 WBC (Bld) 6.0 % Low 20.0-45.0 [facility] Comment on above: Performed By: #### L [id number] ####[facility] (BEAKER)[address] [place] [address] MCH (RBC) [Entitic mass] 32.1 pg Normal 27.0-33.0 [facility] Comment on above: Performed By: #### L [id number] ####[facility] (BEAKER)[address] [place] [address] MCV (RBC) [Entitic vol] 100.5 fL High 82.0-98.0 [facility] Comment on above: Performed By: #### L [id number] ####[facility] (BEAKER)[address] [place] [address] Monocytes (Bld) [#/Vol] 0.26 10*3/uL Normal 0.10-1.00 [facility] Comment on above: Performed By: #### L [id number] ####[facility] (BEAKER)[address] [place] [address] Monocytes/100 WBC (Bld) 3.6 % Low 5.0-12.0 [facility] Comment on above: Performed By: #### L [id number] ####[facility] ([facility])[address] [place] [address] Neutrophils (Bld) [#/Vol] 6.39 10*3/uL Normal 1.60-7.60 [facility] Comment on above: Performed By: #### L [id number] ####[facility] ([facility])[address] [place], [place] [address] Neutrophils/100 WBC (Bld) 89.6 % High 40.0-72.0 [facility] Comment on above: Performed By: #### L [id number] ####[facility] ([facility])[address] [address] NRBC (PER 100 WBCS) BY AUTOMATED COUNT 0.0 % Normal 0 [facility] Comment on above: Performed By: #### L [id number] ####[facility] ([facility])[address] [place] [address] PLATELETS (10*3/UL) IN BLOOD AUTOMATED COUNT 161 10*3/uL Normal 150-400 [facility] Comment on above: Performed By: #### L [id number] ####[facility] ([facility])[address] [place] [address] RBC (Bld) [#/Vol] 3.77 10*6/uL Low 4.20-5.70 [facility] Comment on above: Performed By: #### L [id number] ####[facility] ([facility])[address] [place] [address] WBC (Bld) [#/Vol] 7.14 10*3/uL Normal 4.00-10.60 [facility] Comment on above: Performed By: #### L [id number] ####[facility] [place] [address] CONSULTon 03-01-2024 CONSULT Normal [facility] MAGNESIUMon 03-01-2024 Magnesium [Mass/Vol] 2.1 mg/dL Normal 1.9-2.7 [facility] Comment on above: Performed By: #### L [id number] ####[facility] ([facility])[address] [place] [address] PHOSPHORUSon 03-01-2024 Magnesium [Mass/Vol] 2.3 mg/dL Low 2.5-5.0 [facility] Comment on above: Performed By: #### L [id number] ####[facility] ([facility])[address] [place] [address] PLATELET COUNTon 03-01-2024 PLATELETS (10*3/UL) IN BLOOD AUTOMATED COUNT 157 10*3/uL Normal 150-400 [facility] Comment on above: Performed By: #### L [id number] ####[facility] ([facility])[address] [place] [address] URINALYSIS WITH MICROSCOPICo n 03-01-2024 BILIRUBIN, TOTAL PRESENCE IN URINE Negative Normal Negative [facility] Comment on above: Performed By: #### L [id number] ####[facility] ([facility])[address] [place] [address] Clarity (U) Turbid Abnormal Clear [facility] Comment on above: Performed By: #### L [id number] ####[facility] ([facility])[address] [place] [address] Color (U) Yellow Normal Colorless, Yellow, Light-Yellow [facility] Comment on above: Performed By: #### L [id number] ####[facility] ([facility])[address] [place] [address] GLUCOSE (MG/DL) IN URINE Normal Normal Normal [facility] Comment on above: Performed By: #### L [id number] ####[facility] (BEAKER)[address] [place] [address] HEMOGLOBIN PRESENCE IN URINE Moderate Abnormal Negative [facility] Comment on above: Performed By: #### L [id number] ####[facility] ([facility])[address] [place] [address] Ketones Ql (U) Negative Normal Negative [facility] Comment on above: Performed By: #### L [id number] ####[facility] ([facility])[address] [place] [address] LEUKOCYTE ESTERASE PRESENCE IN URINE BY TEST STRIP Large Abnormal Negative [facility] Comment on above: Performed By: #### L [id number] ####[facility] ([facility])[address] [place] [address] MUCUS (#/LPF) IN URINE SEDIMENT Few Normal None Seen, Occasional, Few [facility] Comment on above: Performed By: #### L [id number] ####[facility] ([facility])[address] [place] [address] NITRITE PRESENCE IN URINE Negative Normal Negative [facility] Comment on above: Performed By: #### L [id number] ####[facility] ([facility])[address] [place] [address] pH (U) 5.5 [pH] Normal 5.0-8.0 [facility] Comment on above: Performed By: #### L [id number] ####[facility] ([facility])[address] [place] [address] Protein (U) [Mass/Vol] Negative Normal Negative [facility] Comment on above: Performed By: #### L [id number] ####[facility] ([facility])[address] [place] [address] RBC (#/HPF) IN URINE SEDIMENT >20 Abnormal None Seen, 0-2 [facility] Comment on above: Performed By: #### L [id number] ####[facility] ([facility])[address] [place] [address] Specific gravity (U) [Rel density] 1.012 Normal 1.010-1.030 [facility] Comment on above: Performed By: #### L [id number] ####[facility] ([facility])[address] [place] [address] SQUAMOUS EPITHELIAL CELLS (#/LPF) IN URINE SEDIMENT Many Abnormal None Seen, Occasional, Few [facility] Comment on above: Performed By: #### L [id number] ####[facility] ([facility])[address] [place] [address] UROBILINOGEN (MG/DL) IN URINE Normal Normal Normal [facility] Comment on above: Performed By: #### L [id number] ####[facility] ([facility])[address] [place] [address] WBC (LEUKOCYTE) (#/HPF) IN URINE SEDIMENT >50 Abnormal None Seen, 0-2 [facility] Comment on above: Performed By: #### L [id number] ####[facility] ([facility])[address] [place] [address] WBC (LEUKOCYTE) CLUMPS (#/HPF) IN URINE SEDIMENT Present Abnormal None Seen [facility] Comment on above: Performed By: #### L [id number] ####[facility] ([facility])[address] [place] [address] URINE CULTURE, ROUTINEon Ampicillin [Susc] 2 ug/ml Susceptible [facility] Comment on above: Performed By: #### L [id number] ####[facility] ([facility])[address] [place] [address] Nitrofurantoin [Susc] <=16 Susceptible [facility] Comment on above: Performed By: #### L [id number] ####[facility] ([facility])[address] [place] [address] Vancomycin [Susc] 1 ug/ml Susceptible [facility] Comment on above: Performed By: #### L [id number] ####[facility] ([facility])[address] [place] [address] B-TYPE NATRIURETIC PEPTIDEon 02-29-2024 Natriuretic peptide B (Bld) [Mass/Vol] 524 pg/mL High 0-100 [facility] Comment on above: Performed By: #### L [id number] ####[facility] (BEAKER)[address] [place] [address] BASIC METABOLIC PANELon 10- Anion gap [Moles/Vol] 10 mmol/L Normal 7-20 [facility] Comment on above: Performed By: #### L [id number] ####[facility] ([facility]AKER)[address] [place] [address] Calcium [Mass/Vol] 8.6 mg/dL Normal 8.6-10.3 [facility] Comment on above: Performed By: #### L [id number] ####[facility] (BEAKER)[address] [place] [address] Chloride [Moles/Vol] 104 mmol/L Normal 98-107 [facility] Comment on above: Performed By: #### L [id number] ####[facility] (BEAKER)[address] [place] [address] CO2 [Moles/Vol] 30 mmol/L Normal 21-31 [facility] Comment on above: Performed By: #### L [id number] ####[facility] (BEAKER)[address] [place] [address] Creatinine [Mass/Vol] 0.99 mg/dL Normal 0.70-1.30 [facility] Comment on above: Performed By: #### L [id number] ####[facility] [place] [address] GLOMERULAR FILTRATION RATE ML/MIN/1.73 SQ M.PREDICTED 78.0 mL/min/1.73m*2 Normal >60.0 [facility] Comment on above: Result Comment: [facility]???s estimated glomerular filtration rate (eGFR) will no [...] of individuals. Performed By: #### L [id number] ####[facility] (BEAKER)[address] [place] [address] Glucose [Mass/Vol] 134 mg/dL High 70-100 [facility] Comment on above: Performed By: #### L [id number] ####[facility] (BEAKER)[address] [place] [address] Potassium [Moles/Vol] 3.4 mmol/L Low 3.5-5.1 [facility] Comment on above: Performed By: #### L [id number] ####[facility] (BEAKER)[address] [place] [address] Sodium [Moles/Vol] 141 mmol/L Normal 136-145 [facility] Comment on above: Performed By: #### L [id number] ####[facility] (BEAKER)[address] [place] [address] Urea nitrogen [Mass/Vol] 24 mg/dL Normal 7-25 [facility] Comment on above: Performed By: #### L [id number] ####[facility] (BEAKER)[address] [place] [address] UREA NITROGEN/CREATININE (MASS RATIO) IN SER/PLAS 24.2 Normal [facility] Comment on above: Performed By: #### L [id number] ####[facility] (BEAKER)[address] [place] [address] Anion gap [Moles/Vol] 10 mmol/L Normal 7-20 [facility] Comment on above: Performed By: #### L [id number] ####[facility] (BEAKER)[address] [place] [address] Calcium [Mass/Vol] 8.4 mg/dL Low 8.6-10.3 [facility] Comment on above: Performed By: #### L [id number] ####[facility] (BEAKER)[address] [place] [address] Chloride [Moles/Vol] 105 mmol/L Normal 98-107 [facility] Comment on above: Performed By: #### L [id number] ####[facility] ([facility]ER)[address] [place] [address] CO2 [Moles/Vol] 28 mmol/L Normal 21-31 [facility] Comment on above: Performed By: #### L [id number] ####[facility] (BEAKER)[address] [place] [address] Creatinine [Mass/Vol] 1.06 mg/dL Normal 0.70-1.30 [facility] Comment on above: Performed By: #### L [id number] ####[facility] (BEAKER)[address] [place] [address] GLOMERULAR FILTRATION RATE ML/MIN/1.73 SQ M.PREDICTED 71.8 mL/min/1.73m*2 Normal >60.0 [facility] Comment on above: Result Comment: [facility]???s estimated glomerular filtration rate (eGFR) will no [...] of individuals. Performed By: #### L [id number] ####[facility] (BEAKER)[address] [place] [address] Glucose [Mass/Vol] 141 mg/dL High 70-100 [facility] Comment on above: Performed By: #### L [id number] ####[facility] (BEAKER)[address] [place] [address] Potassium [Moles/Vol] 3.5 mmol/L Normal 3.5-5.1 [facility] Comment on above: Performed By: #### L [id number] ####[facility] (BEAKER)[address] [place] [address] Sodium [Moles/Vol] 139 mmol/L Normal 136-145 [facility] Comment on above: Performed By: #### L [id number] ####[facility] ([facility])[address] [place] [address] Urea nitrogen [Mass/Vol] 23 mg/dL Normal 7-25 [facility] Comment on above: Performed By: #### L [id number] ####[facility] ([facility])[address] [place] [address] UREA NITROGEN/CREATININE (MASS RATIO) IN SER/PLAS 21.7 Normal [facility] Comment on above: Performed By: #### L [id number] ####[facility] ([facility] [place])[address] [place] [address] CBC WITH AUTO DIFFERENTIALon 02-29-2024 Basophils (Bld) [#/Vol] 0.01 10*3/uL Normal 0.00-0.20 [facility] Comment on above: Performed By: #### L [id number] ####[facility] ([facility] [place])[address] [place] [address] Basophils/100 WBC (Bld) 0.2 % Normal 0.0-1.0 [facility] Comment on above: Performed By: #### L [id number] ####[facility] ([facility] [place])[address] [place] [address] Eosinophils (Bld) [#/Vol] 0.00 10*3/uL Normal 0.00-0.50 [facility] Comment on above: Performed By: #### L [id number] ####[facility] ([facility] [place])[address] [place] [address] Eosinophils/100 WBC (Bld) 0.0 % Normal 0.0-6.0 [facility] Comment on above: Performed By: #### L [id number] ####[facility] [place] [address] Erythrocyte distribution width (RBC) [Ratio] 12.8 % Normal 11.5-15.0 [facility] Comment on above: Performed By: #### L [id number] ####[facility] [place] [address] ERYTHROCYTE MEAN CORPUSCULAR HEMOGLOBIN CONCENTRATION (G/DL) BY AUTOMATED 32.0 g/dL Normal 32.0-35.0 [facility] Comment on above: Performed By: #### L [id number] ####[facility] ([facility] [place])[address] [place] [address] Hematocrit (Bld) [Volume fraction] 38.7 % Low 39.0-55.0 [facility] Comment on above: Performed By: #### L [id number] ####[facility] ([facility] [place])[address] [place] [address] Hemoglobin (Bld) [Mass/Vol] 12.4 g/dL Low 13.0-17.0 [facility] Comment on above: Performed By: #### L [id number] ####[facility] ([facility])[address] [place] [address] Immature granulocytes (Bld) [#/Vol] 0.04 10*3/uL Normal 0.00-0.20 [facility] Comment on above: Performed By: #### L [id number] ####[facility] ([facility] [place])[address] [place] [address] Immature granulocytes/100 WBC (Bld) 0.7 % Normal 0.0-1.0 [facility] Comment on above: Performed By: #### L [id number] ####[facility] [place] [address] IMMATURE PLATELET FRACTION % 4.9 % Normal 0.8-6.3 [facility] Comment on above: Performed By: #### L [id number] ####[facility] (BEAKER)[address] [place] [address] Lymphocytes (Bld) [#/Vol] 0.38 10*3/uL Low 1.20-4.00 [facility] Comment on above: Performed By: #### L [id number] ####[facility] ([facility])[address] [place] [address] Lymphocytes/100 WBC (Bld) 6.2 % Low 20.0-45.0 [facility] Comment on above: Performed By: #### L [id number] ####[facility] ([facility])[address] [place] [address] MCH (RBC) [Entitic mass] 32.0 pg Normal 27.0-33.0 [facility] Comment on above: Performed By: #### L [id number] ####[facility] ([facility]ER)[address] [place] [address] MCV (RBC) [Entitic vol] 100.0 fL High 82.0-98.0 [facility] Comment on above: Performed By: #### L [id number] ####[facility] ([facility])[address] [place] [address] Monocytes (Bld) [#/Vol] 0.35 10*3/uL Normal 0.10-1.00 [facility] Comment on above: Performed By: #### L [id number] ####[facility] ([facility]ER)[address] [place] [address] Monocytes/100 WBC (Bld) 5.7 % Normal 5.0-12.0 [facility] Comment on above: Performed By: #### L [id number] ####[facility] ([facility]ER)[address] [place] [address] Neutrophils (Bld) [#/Vol] 5.36 10*3/uL Normal 1.60-7.60 [facility] Comment on above: Performed By: #### L [id number] ####[facility] ([facility]ER)[address] [place] [address] Neutrophils/100 WBC (Bld) 87.2 % High 40.0-72.0 [facility] Comment on above: Performed By: #### L [id number] ####[facility] ([facility]ER)[address] [place] [address] NRBC (PER 100 WBCS) BY AUTOMATED COUNT 0.0 % Normal 0 [facility] Comment on above: Performed By: #### L [id number] ####[facility] ([facility])[address] [place] [address] PLATELETS (10*3/UL) IN BLOOD AUTOMATED COUNT 122 10*3/uL Low 150-400 [facility] Comment on above: Performed By: #### L [id number] ####[facility] ([facility])[address] [place] [address] RBC (Bld) [#/Vol] 3.87 10*6/uL Low 4.20-5.70 [facility] Comment on above: Performed By: #### L [id number] ####[facility] ([facility])[address] [place] [address] WBC (Bld) [#/Vol] 6.14 10*3/uL Normal 4.00-10.60 [facility] Comment on above: Performed By: #### L [id number] ####[facility] ([facility])[address] [place] [address] CONSULTon 02-29-2024 CONSULT Normal [facility] LEGIONELLA ANTIGEN, URINEon 02-29-2024 LEGIONELLA AG, UR Negative Normal NEG [facility] Comment on above: Result Comment: L. p neumophila serogroup 1 antigen not detected.A negative result does not exclude infection with Leginella pnemophila serogroup 1 nor does it rule out other microbial-caused respiratory infections of disease caused by other serogroups of Legionella pneumophila.Test Performed by [facility] [address] [place] [id number] - Released 03/01/2024 15:07 Performed By: #### L [id number] ####[facility] [id number] [place] [address] MAGNESIUMon 02-29-2024 Magnesium [Mass/Vol] 2.0 mg/dL Normal 1.9-2.7 [facility] Comment on above: Performed By: #### L [id number] ####[facility] ([facility])[address] [place] [address] Magnesium [Mass/Vol] 1.9 mg/dL Normal 1.9-2.7 [facility] Comment on above: Performed By: #### L [id number] ####[facility] ([facility])[address] [place] [address] PHOSPHORUSon 02-29-2024 Magnesium [Mass/Vol] 2.4 mg/dL Low 2.5-5.0 [facility] Comment on above: Performed By: #### L [id number] ####[facility] ([facility])[address] [place] [address] RESPIRATORY VIRUS PCR PANELo n 02-29-2024 ADENOVIRUS DETECTION BY PCR Not detected Normal Not Detected [facility] Comment on above: Order Comment: Testi ng methodology is a multiplexed nucleic acid test intended for the simultaneous qualitative detection and differentiation of nucleic acids from multiple viral and bacterial respiratory organisms in nasopharyngeal swabs (NETWORK SECURITY CONSULTANT). Performed By: #### L [id number] ####[facility] ([facility])[address] [place] [address] B. PARAPERTUSSIS DNA Not detected Normal Not Detected [facility] Comment on above: Order Comment: Testi ng methodology is a multiplexed nucleic acid test intended for the simultaneous qualitative detection and differentiation of nucleic acids from multiple viral and bacterial respiratory organisms in nasopharyngeal swabs (NETWORK SECURITY CONSULTANT). Performed By: #### L [id number] ####[facility] ([facility])[address] [place] [address] BORDETELLA PERTUSSIS DNA PRESENCE IN UNSPECIFIED SPECIMEN BY OK* Not detected Normal Not Detected [facility] Comment on above: Order Comment: Testi ng methodology is a multiplexed nucleic acid test intended for the simultaneous qualitative detection and differentiation of nucleic acids from multiple viral and bacterial respiratory organisms in nasopharyngeal swabs (NETWORK SECURITY CONSULTANT). Performed By: #### L [id number] ####[facility] ([facility])[address] [place] [address] CHLAMYDOPHILA PNEUMONIAE Not detected Normal Not Detected [facility] Comment on above: Order Comment: Testi ng methodology is a multiplexed nucleic acid test intended for the simultaneous qualitative detection and differentiation of nucleic acids from multiple viral and bacterial respiratory organisms in nasopharyngeal swabs (NETWORK SECURITY CONSULTANT). Performed By: #### L [id number] ####[facility] ([facility])[address] [place] [address] CORONAVIRUS 229E Not detected Normal Not Detected [facility] Comment on above: Order Comment: Testi ng methodology is a multiplexed nucleic acid test intended for the simultaneous qualitative detection and differentiation of nucleic acids from multiple viral and bacterial respiratory organisms in nasopharyngeal swabs (NETWORK SECURITY CONSULTANT). Performed By: #### L [id number] ####[facility] ([facility])[address] [place] [address] CORONAVIRUS HKU1 Not detected Normal Not Detected [facility] Comment on above: Order Comment: Testi ng methodology is a multiplexed nucleic acid test intended for the simultaneous qualitative detection and differentiation of nucleic acids from multiple viral and bacterial respiratory organisms in nasopharyngeal swabs (NETWORK SECURITY CONSULTANT). Performed By: #### L [id number] ####[facility] ([facility])[address] [place] [address] CORONAVIRUS [id number] Not detected Normal Not Detected [facility] Comment on above: Order Comment: Testi ng methodology is a multiplexed nucleic acid test intended for the simultaneous qualitative detection and differentiation of nucleic acids from multiple viral and bacterial respiratory organisms in nasopharyngeal swabs (NETWORK SECURITY CONSULTANT). Performed By: #### L [id number] ####[facility] ([facility])[address] [place] [address] CORONAVIRUS [id number] Not detected Normal Not Detected [facility] Comment on above: Order Comment: Testi ng methodology is a multiplexed nucleic acid test intended for the simultaneous qualitative detection and differentiation of nucleic acids from multiple viral and bacterial respiratory organisms in nasopharyngeal swabs (NETWORK SECURITY CONSULTANT). Performed By: #### L [id number] ####[facility] ([facility])[address] [place] [address] HUMAN METAPNEUMOVIRUS Not detected Normal Not Detected [facility] Comment on above: Order Comment: Testi ng methodology is a multiplexed nucleic acid test intended for the simultaneous qualitative detection and differentiation of nucleic acids from multiple viral and bacterial respiratory organisms in nasopharyngeal swabs (NETWORK SECURITY CONSULTANT). Performed By: #### L [id number] ####[facility] [place] [address] HUMAN RHINOVIRUS+ENTEROVI NAUN Not detected Normal Not Detected [facility] Comment on above: Order Comment: Testi ng methodology is a multiplexed nucleic acid test intended for the simultaneous qualitative detection and differentiation of nucleic acids from multiple viral and bacterial respiratory organisms in nasopharyngeal swabs (NETWORK SECURITY CONSULTANT). Performed By: #### L [id number] ####[facility] ([facility])[address] [place] [address] INFLUENZA A Not detected Normal Not Detected [facility] Comment on above: Order Comment: Testi ng methodology is a multiplexed nucleic acid test intended for the simultaneous qualitative detection and differentiation of nucleic acids from multiple viral and bacterial respiratory organisms in nasopharyngeal swabs (NETWORK SECURITY CONSULTANT). Performed By: #### L [id number] ####[facility] ([facility])[address] [facility] [place] [address] INFLUENZA B Not detected Normal Not Detected [facility] Comment on above: Order Comment: Testi ng methodology is a multiplexed nucleic acid test intended for the simultaneous qualitative detection and differentiation of nucleic acids from multiple viral and bacterial respiratory organisms in nasopharyngeal swabs (NETWORK SECURITY CONSULTANT). Performed By: #### L [id number] ####[facility] ([facility])[address] [facility] [place] [address] MYCOPLASMA PNEUMONIAE Not detected Normal Not Detected [facility] Comment on above: Order Comment: Testi ng methodology is a multiplexed nucleic acid test intended for the simultaneous qualitative detection and differentiation of nucleic acids from multiple viral and bacterial respiratory organisms in nasopharyngeal swabs (NETWORK SECURITY CONSULTANT). Performed By: #### L [id number] ####[facility] ([facility] [place] [address] PARAINFLUENZA 1 Not detected Normal Not Detected [facility] Comment on above: Order Comment: Testi ng methodology is a multiplexed nucleic acid test intended for the simultaneous qualitative detection and differentiation of nucleic acids from multiple viral and bacterial respiratory organisms in nasopharyngeal swabs (NETWORK SECURITY CONSULTANT). Performed By: #### L [id number] ####[facility] ([facility] [place] [address] PARAINFLUENZA 2 Not detected Normal Not Detected [facility] Comment on above: Order Comment: Testi ng methodology is a multiplexed nucleic acid test intended for the simultaneous qualitative detection and differentiation of nucleic acids from multiple viral and bacterial respiratory organisms in nasopharyngeal swabs (NETWORK SECURITY CONSULTANT). Performed By: #### L [id number] ####[facility] ([facility])[address] [place] [address] PARAINFLUENZA 3 Not detected Normal Not Detected [facility] Comment on above: Order Comment: Testi ng methodology is a multiplexed nucleic acid test intended for the simultaneous qualitative detection and differentiation of nucleic acids from multiple viral and bacterial respiratory organisms in nasopharyngeal swabs (NETWORK SECURITY CONSULTANT). Performed By: #### L [id number] ####[facility] ([facility])[address] [place] [address] PARAINFLUENZA 4 Not detected Normal Not Detected [facility] Comment on above: Order Comment: Testi ng methodology is a multiplexed nucleic acid test intended for the simultaneous qualitative detection and differentiation of nucleic acids from multiple viral and bacterial respiratory organisms in nasopharyngeal swabs (NETWORK SECURITY CONSULTANT). Performed By: #### L [id number] ####[facility] ([facility])[address] [place] [address] RESP SYNCYTIAL VIRUS Not detected Normal Not Detected [facility] Comment on above: Order Comment: Testi ng methodology is a multiplexed nucleic acid test intended for the simultaneous qualitative detection and differentiation of nucleic acids from multiple viral and bacterial respiratory organisms in nasopharyngeal swabs (NETWORK SECURITY CONSULTANT). Performed By: #### L [id number] ####[facility] ([facility])[address] [place] [address] SARS-CoV-2 (COVID-19) RNA TAI+probe Ql (Unsp spec) Not detected Normal Not Detected [facility] Comment on above: Order Comment: Testi ng methodology is a multiplexed nucleic acid test intended for the simultaneous qualitative detection and differentiation of nucleic acids from multiple viral and bacterial respiratory organisms in nasopharyngeal swabs (NETWORK SECURITY CONSULTANT). Performed By: #### L [id number] ####[facility] ([facility])[address] [place] [address] ANTI-XA (HEPARIN LEVEL)on HEPARIN UNFRACTIONATED (U/ML) IN PPP BY CHROMOGENIC METHOD <0.10 Invalid Interpretation Code 0.3-0.7 [facility] Comment on above: Order Comment: Check anti-Xa level every 6 hours while on heparin infusion, or per protocol. Result Comment: Ricarda roxaban and Apixaban will interfere with the anti Xa assay used to monitor UFH and LMWH. Performed By: #### L [id number] ####[facility] [place] [address] BASIC METABOLIC PANELon 02-12 Anion gap [Moles/Vol] 10 mmol/L Normal 7-20 [facility] Comment on above: Performed By: #### L [id number] ####[facility] [place] [address] Calcium [Mass/Vol] 8.0 mg/dL Low 8.6-10.3 [facility] Comment on above: Performed By: #### L [id number] ####[facility] (BEAKER)[address] [place] [address] Chloride [Moles/Vol] 102 mmol/L Normal 98-107 [facility] Comment on above: Performed By: #### L [id number] ####[facility] (BEAKER)[address] [place] [address] CO2 [Moles/Vol] 30 mmol/L Normal 21-31 [facility] Comment on above: Performed By: #### L [id number] ####[facility] [place] [address] Creatinine [Mass/Vol] 1.22 mg/dL Normal 0.70-1.30 [facility] Comment on above: Performed By: #### L [id number] ####[facility] (BEAKER)[address] [place] [address] GLOMERULAR FILTRATION RATE ML/MIN/1.73 SQ M.PREDICTED 60.7 mL/min/1.73m*2 Normal >60.0 [facility] Comment on above: Result Comment: The [facility]???s estimated glomerular filtration rate (eGFR) will no [...] of individuals. Performed By: #### L [id number] ####[facility] ([facility])[address] [place] [address] Glucose [Mass/Vol] 94 mg/dL Normal 70-100 [facility] Comment on above: Performed By: #### L [id number] ####[facility] ([facility])[address] [place] [address] Potassium [Moles/Vol] 3.0 mmol/L Low 3.5-5.1 [facility] Comment on above: Performed By: #### L [id number] ####[facility] ([facility])[address] [place] [address] Sodium [Moles/Vol] 139 mmol/L Normal 136-145 [facility] Comment on above: Performed By: #### L [id number] ####[facility] (BEAKER)[address] [place] [address] Urea nitrogen [Mass/Vol] 16 mg/dL Normal 7-25 [facility] Comment on above: Performed By: #### L [id number] ####[facility] [place] [address] UREA NITROGEN/CREATININE (MASS RATIO) IN SER/PLAS 13.1 Normal [facility] Comment on above: Performed By: #### L [id number] ####[facility] ([facility]ER)[address] [place] [address] CBC WITH AUTO DIFFERENTIALon 02-28-2024 Basophils (Bld) [#/Vol] 0.03 10*3/uL Normal 0.00-0.20 [facility] Comment on above: Performed By: #### L [id number] ####[facility] ([facility]AKER)[address] [place] [address] Basophils/100 WBC (Bld) 0.3 % Normal 0.0-1.0 [facility] Comment on above: Performed By: #### L [id number] ####[facility] ([facility]ER)[address] [place] [address] Eosinophils (Bld) [#/Vol] 0.00 10*3/uL Normal 0.00-0.50 [facility] Comment on above: Performed By: #### L [id number] ####[facility] ([facility]ER)[address] [place] [address] Eosinophils/100 WBC (Bld) 0.0 % Normal 0.0-6.0 [facility] Comment on above: Performed By: #### L [id number] ####[facility] ([facility]ER)[address] [place] [address] Erythrocyte distribution width (RBC) [Ratio] 13.0 % Normal 11.5-15.0 [facility] Comment on above: Performed By: #### L [id number] ####[facility] ([facility]ER)[address] [place] [address] ERYTHROCYTE MEAN CORPUSCULAR HEMOGLOBIN CONCENTRATION (G/DL) BY AUTOMATED 32.3 g/dL Normal 32.0-35.0 [facility] Comment on above: Performed By: #### L [id number] ####[facility] (BEAKER)[address] [place] [address] Hematocrit (Bld) [Volume fraction] 37.5 % Low 39.0-55.0 [facility] Comment on above: Performed By: #### L [id number] ####[facility] (BE[facility]ER)[address] [place] [address] Hemoglobin (Bld) [Mass/Vol] 12.1 g/dL Low 13.0-17.0 [facility] Comment on above: Performed By: #### L [id number] ####[facility] ([facility])[address] [place] [address] Immature granulocytes (Bld) [#/Vol] 0.06 10*3/uL Normal 0.00-0.20 [facility] Comment on above: Performed By: #### L [id number] ####[facility] ([facility])[address] [place] [address] Immature granulocytes/100 WBC (Bld) 0.6 % Normal 0.0-1.0 [facility] Comment on above: Performed By: #### L [id number] ####[facility] ([facility])[address] [place] [address] Lymphocytes (Bld) [#/Vol] 0.56 10*3/uL Low 1.20-4.00 [facility] Comment on above: Performed By: #### L [id number] ####[facility] ([facility])[address] [place] [address] Lymphocytes/100 WBC (Bld) 6.1 % Low 20.0-45.0 [facility] Comment on above: Performed By: #### L [id number] ####[facility] ([facility])[address] [place] [address] MCH (RBC) [Entitic mass] 32.3 pg Normal 27.0-33.0 [facility] Comment on above: Performed By: #### L [id number] ####[facility] ([facility])[address] [place] [address] MCV (RBC) [Entitic vol] 100.0 fL High 82.0-98.0 [facility] Comment on above: Performed By: #### L [id number] ####[facility] [place] [address] Monocytes (Bld) [#/Vol] 1.19 10*3/uL High 0.10-1.00 [facility] Comment on above: Performed By: #### L [id number] ####[facility] (BEAKER)[address] [place], [place] [address] Monocytes/100 WBC (Bld) 12.9 % High 5.0-12.0 [facility] Comment on above: Performed By: #### L [id number] ####[facility] (BEAKER)[address] [place] [address] Neutrophils (Bld) [#/Vol] 7.41 10*3/uL Normal 1.60-7.60 [facility] Comment on above: Performed By: #### L [id number] ####[facility] (BEAKER)[address], [place] [address] Neutrophils/100 WBC (Bld) 80.1 % High 40.0-72.0 [facility] Comment on above: Performed By: #### L [id number] ####[facility] ([facility])[address], [place] [address] NRBC (PER 100 WBCS) BY AUTOMATED COUNT 0.0 % Normal 0 [facility] Comment on above: Performed By: #### L [id number] ####[facility], [place] [address] PLATELETS (10*3/UL) IN BLOOD AUTOMATED COUNT 146 10*3/uL Low 150-400 [facility] Comment on above: Performed By: #### L [id number] ####[facility] (BEAKER)[address], [place] [address] RBC (Bld) [#/Vol] 3.75 10*6/uL Low 4.20-5.70 [facility] Comment on above: Performed By: #### L [id number] ####[facility] (BEAKER)[address] [place] [address] WBC (Bld) [#/Vol] 9.25 10*3/uL Normal 4.00-10.60 [facility] Comment on above: Performed By: #### L [id number] ####[facility] (BEAKER)[address] [place] [address] MAGNESIUMon 02-28-2024 Magnesium [Mass/Vol] 1.5 mg/dL Low 1.9-2.7 [facility] Comment on above: Performed By: #### L [id number] ####[facility] (BE[facility]ER)[address] [place] [address] PHOSPHORUSon 02-28-2024 Magnesium [Mass/Vol] 2.7 mg/dL Normal 2.5-5.0 [facility] Comment on above: Performed By: #### L [id number] ####[facility] (BEAKER)[address] [place] [address] PROCALCITONIN TESTon 024 PROCALCITONIN IN BLOOD 3.55 ng/mL Critically high 0.00-0.10 [facility] Comment on above: Result Comment: Susp ected [...] and initial PCT<0.5ng/mL Performed By: #### L [id number] ####[facility] ([facility])[address] [place] [address] URINALYSIS WITH MICROSCOPICo n 02-28-2024 BILIRUBIN, TOTAL PRESENCE IN URINE Negative Normal Negative [facility] Comment on above: Performed By: #### L [id number] ####[facility] ([facility])[address] [place] [address] Clarity (U) Cloudy Abnormal Clear [facility] Comment on above: Performed By: #### L [id number] ####[facility] ([facility])[address] [place] [address] Color (U) Yellow Normal Colorless, Yellow, Light-Yellow [facility] Comment on above: Performed By: #### L [id number] ####[facility] ([facility])[address] [place] [address] GLUCOSE (MG/DL) IN URINE Normal Normal Normal [facility] Comment on above: Performed By: #### L [id number] ####[facility] ([facility])[address] [place] [address] HEMOGLOBIN PRESENCE IN URINE Moderate Abnormal Negative [facility] Comment on above: Performed By: #### L [id number] ####[facility] ([facility])[address] [place] [address] Ketones Ql (U) Negative Normal Negative [facility] Comment on above: Performed By: #### L [id number] ####[facility] ([facility] [place])[address] [place] [address] LEUKOCYTE ESTERASE PRESENCE IN URINE BY TEST STRIP Large Abnormal Negative [facility] Comment on above: Performed By: #### L [id number] ####[facility] ([facility] [place])[address] [place] [address] MUCUS (#/LPF) IN URINE SEDIMENT Occasional Normal None Seen, Occasional, Few [facility] Comment on above: Performed By: #### L [id number] ####[facility] ([facility] [place])[address] [place] [address] NITRITE PRESENCE IN URINE Negative Normal Negative [facility] Comment on above: Performed By: #### L [id number] ####[facility] ([facility])[address] [place] [address] pH (U) 6.0 [pH] Normal 5.0-8.0 [facility] Comment on above: Performed By: #### L [id number] ####[facility] ([facility])[address] [place] [address] Protein (U) [Mass/Vol] 30 mg/dL Abnormal Negative [facility] Comment on above: Performed By: #### L [id number] ####[facility] ([facility])[address] [place] [address] RBC (#/HPF) IN URINE SEDIMENT 11-20 Abnormal None Seen, 0-2 [facility] Comment on above: Performed By: #### L [id number] ####[facility] ([facility])[address] [place] [address] Specific gravity (U) [Rel density] 1.018 Normal 1.010-1.030 [facility] Comment on above: Performed By: #### L [id number] ####[facility] ([facility])[address] [place] [address] SQUAMOUS EPITHELIAL CELLS (#/LPF) IN URINE SEDIMENT Few Normal None Seen, Occasional, Few [facility] Comment on above: Performed By: #### L [id number] ####[facility] ([facility])[address] [place] [address] UROBILINOGEN (MG/DL) IN URINE Normal Normal Normal [facility] Comment on above: Performed By: #### L [id number] ####[facility] ([facility])[address] [place] [address] WBC (LEUKOCYTE) (#/HPF) IN URINE SEDIMENT >50 Abnormal None Seen, 0-2 [facility] Comment on above: Performed By: #### L [id number] ####[facility] ([facility])[address] [place] [address] WBC (LEUKOCYTE) CLUMPS (#/HPF) IN URINE SEDIMENT Present Abnormal None Seen [facility] Comment on above: Performed By: #### L [id number] ####[facility] ([facility]ER)[address] [place] [address] YEAST, BUDDING (#/HPF) IN URINE Occasional Abnormal None Seen [facility] Comment on above: Performed By: #### L [id number] ####[facility] ([facility])[address] [place] [address] VENOUS BLOOD GAS WITH IONIZE D CALCIUMon 02-28-2024 Base excess Calc (BldV) [Moles/Vol] 3.8 mmol/L Normal [facility] Comment on above: Order Comment: Bipap 16/8 RR 14 FiO2 75% Performed By: #### L [id number] ####[facility] RESPIRAT[facility] [id number] [place] [address] [place] CALCIUM IONIZED (MMOL/L) IN BLOOD 1.06 mmol/L Low 1.15-1.33 [facility] Comment on above: Order Comment: Bipap 16/8 RR 14 FiO2 75% Performed By: #### L [id number] ####[facility] RESPIRATORY [id number] [place] [address] [place] CO2 (BldV) [Partial pressure] 46 mm[Hg] Normal 40-50 [facility] Comment on above: Order Comment: Bipap 16/8 RR 14 FiO2 75% Performed By: #### L [id number] ####[facility] RESPIRATORY [id number] [place] [address] [place] HCO3 (Bld) [Moles/Vol] 29.2 mmol/L Normal [facility] Comment on above: Order Comment: Bipap 16/8 RR 14 FiO2 75% Performed By: #### L [id number] ####[facility] RESPIRATORY [id number] [place] [address] [place] Oxygen (BldV) [Partial pressure] 47 mm[Hg] High 35-45 [facility] Comment on above: Order Comment: Bipap 16/8 RR 14 FiO2 75% Performed By: #### L [id number] ####[facility] RESPIRATORY [id number] [facility] [place] [address] [facility] OXYGEN SATURATION (%) IN VENOUS BLOOD 78.8 % High 65.0-75.0 [facility] Comment on above: Order Comment: Bipap 16/8 RR 14 FiO2 75% Performed By: #### L [id number] ####[facility] RESPIRATORY [id number] [place] [facility] [address] [facility] PH OF VENOUS BLOOD 7.41 Normal 7.31-7.41 [facility] Comment on above: Order Comment: Bipap 16/8 RR 14 FiO2 75% Performed By: #### L [id number] ####[facility] RESPIRATORY [id number] [facility] [place] [address] [place] 30on 02-27-2024 30 Normal [facility] 30 Normal [facility] ANESon 02-27-2024 ANES Normal [facility] ANTI-XA (HEPARIN LEVEL)on HEPARIN UNFRACTIONATED (U/ML) IN PPP BY CHROMOGENIC METHOD 0.51 IU/mL Normal 0.3-0.7 [facility] Comment on above: Result Comment: [place] roxaban and Apixaban will interfere with the anti Xa assay used to monitor UFH and LMWH. Performed By: #### L [id number] ####[facility] ([facility]ER)[address] [place] [address] HEPARIN UNFRACTIONATED (U/ML) IN PPP BY CHROMOGENIC METHOD 0.28 IU/mL Low 0.3-0.7 [facility] Comment on above: Order Comment: Check anti-Xa level every 6 hours while on heparin infusion, or per protocol. Result Comment: [place] roxaban and Apixaban will interfere with the anti Xa assay used to monitor UFH and LMWH. Performed By: #### L [id number] ####[facility] ([facility]ER)[address] [place] [address] HEPARIN UNFRACTIONATED (U/ML) IN PPP BY CHROMOGENIC METHOD 0.21 IU/mL Low 0.3-0.7 [facility] Comment on above: Result Comment: [place] roxaban and Apixaban will interfere with the anti Xa assay used to monitor UFH and LMWH. Performed By: #### L [id number] ####[facility] ([facility] [place])[address] [place] [address] BASIC METABOLIC PANELon 10- Anion gap [Moles/Vol] 9 mmol/L Normal 7-20 [facility] Comment on above: Performed By: #### L [id number] ####[facility] ([facility] [place])[address] [place] [address] Calcium [Mass/Vol] 8.4 mg/dL Low 8.6-10.3 [facility] Comment on above: Performed By: #### L [id number] ####[facility] ([facility] [place])[address] [place] [address] Chloride [Moles/Vol] 105 mmol/L Normal 98-107 [facility] Comment on above: Performed By: #### L [id number] ####[facility] ([facility] [place])[address] [place] [address] CO2 [Moles/Vol] 27 mmol/L Normal 21-31 [facility] Comment on above: Performed By: #### L [id number] ####[facility] ([facility] [place])[address] [place] [address] Creatinine [Mass/Vol] 0.88 mg/dL Normal 0.70-1.30 [facility] Comment on above: Performed By: #### L [id number] ####[facility] ([facility] [place])[address] [place] [address] GLOMERULAR FILTRATION RATE ML/MIN/1.73 SQ M.PREDICTED 88.0 mL/min/1.73m*2 Normal >60.0 [facility] Comment on above: Result Comment: The [facility]???s estimated glomerular filtration rate (eGFR) will no [...] of individuals. Performed By: #### L [id number] ####[facility] ([facility] [place])[address] [place] [address] Glucose [Mass/Vol] 116 mg/dL High 70-100 [facility] Comment on above: Performed By: #### L [id number] ####[facility] ([facility] [place])[address] [place] [address] Potassium [Moles/Vol] 3.8 mmol/L Normal 3.5-5.1 [facility] Comment on above: Performed By: #### L [id number] ####[facility] ([facility] [place])[address] [place] [address] Sodium [Moles/Vol] 137 mmol/L Normal 136-145 [facility] Comment on above: Performed By: #### L [id number] ####[facility] ([facility] [place])[address] [place] [address] Urea nitrogen [Mass/Vol] 11 mg/dL Normal 7-25 [facility] Comment on above: Performed By: #### L [id number] ####[facility] [place] [address] UREA NITROGEN/CREATININE (MASS RATIO) IN SER/PLAS 12.5 Normal [facility] Comment on above: Performed By: #### L [id number] ####[facility] ([facility] [place])[address] [place] [address] BLOOD CULTUREon 02-27-2024 Bacteria identified Cx Nom (Bld) No growth at 5 days Normal [facility] Comment on above: Performed By: #### L [id number] ####[facility] [place] [address] CALCIUM, IONIZEDon 4 CALCIUM IONIZED (MMOL/L) IN BLOOD 1.20 mmol/L Normal 1.15-1.33 [facility] Comment on above: Performed By: #### C ALCIUM, IONIZED ####[facility] RESPIRATORY [id number] [place] [address] [place] CBC WITH AUTO DIFFERENTIALon 02-27-2024 Basophils (Bld) [#/Vol] 0.02 10*3/uL Normal 0.00-0.20 [facility] Comment on above: Performed By: #### L [id number] ####[facility] ([facility]ER)[address] [place] [address] Basophils/100 WBC (Bld) 0.4 % Normal 0.0-1.0 [facility] Comment on above: Performed By: #### L [id number] ####[facility] ([facility]ER)[address] [place] [address] Eosinophils (Bld) [#/Vol] 0.03 10*3/uL Normal 0.00-0.50 [facility] Comment on above: Performed By: #### L [id number] ####[facility] ([facility]ER)[address] [place] [address] Eosinophils/100 WBC (Bld) 0.7 % Normal 0.0-6.0 [facility] Comment on above: Performed By: #### L [id number] ####[facility] ([facility])[address] [place] [address] Erythrocyte distribution width (RBC) [Ratio] 13.1 % Normal 11.5-15.0 [facility] Comment on above: Performed By: #### L [id number] ####[facility] ([facility]ER)[address] [place] [address] ERYTHROCYTE MEAN CORPUSCULAR HEMOGLOBIN CONCENTRATION (G/DL) BY AUTOMATED 31.8 g/dL Low 32.0-35.0 [facility] Comment on above: Performed By: #### L [id number] ####[facility] ([facility]ER)[address] [place] [address] Hematocrit (Bld) [Volume fraction] 37.7 % Low 39.0-55.0 [facility] Comment on above: Performed By: #### L [id number] ####[facility] ([facility])[address] [place] [address] Hemoglobin (Bld) [Mass/Vol] 12.0 g/dL Low 13.0-17.0 [facility] Comment on above: Performed By: #### L [id number] ####[facility] ([facility])[address] [place] [address] Immature granulocytes (Bld) [#/Vol] 0.02 10*3/uL Normal 0.00-0.20 [facility] Comment on above: Performed By: #### L [id number] ####[facility] ([facility] [place])[address] [place] [address] Immature granulocytes/100 WBC (Bld) 0.4 % Normal 0.0-1.0 [facility] Comment on above: Performed By: #### L [id number] ####[facility] ([facility] [place])[address] [place] [address] IMMATURE PLATELET FRACTION % 3.0 % Normal 0.8-6.3 [facility] Comment on above: Performed By: #### L [id number] ####[facility] ([facility] [place])[address] [place] [address] Lymphocytes (Bld) [#/Vol] 0.73 10*3/uL Low 1.20-4.00 [facility] Comment on above: Performed By: #### L [id number] ####[facility] ([facility] [place])[address] [place] [address] Lymphocytes/100 WBC (Bld) 16.0 % Low 20.0-45.0 [facility] Comment on above: Performed By: #### L [id number] ####[facility] ([facility] [place])[address] [place] [address] MCH (RBC) [Entitic mass] 32.1 pg Normal 27.0-33.0 [facility] Comment on above: Performed By: #### L [id number] ####[facility] ([facility] [place])[address] [place] [address] MCV (RBC) [Entitic vol] 100.8 fL High 82.0-98.0 [facility] Comment on above: Performed By: #### L [id number] ####[facility] (BE[facility]ER)[address] [place] [address] Monocytes (Bld) [#/Vol] 0.85 10*3/uL Normal 0.10-1.00 [facility] Comment on above: Performed By: #### L [id number] ####[facility] ([facility]ER)[address] [place] [address] Monocytes/100 WBC (Bld) 18.7 % High 5.0-12.0 [facility] Comment on above: Performed By: #### L [id number] ####[facility] [place] [address] Neutrophils (Bld) [#/Vol] 2.90 10*3/uL Normal 1.60-7.60 [facility] Comment on above: Performed By: #### L [id number] ####[facility] (BE[facility]ER)[address] [place] [address] Neutrophils/100 WBC (Bld) 63.8 % Normal 40.0-72.0 [facility] Comment on above: Performed By: #### L [id number] ####[facility] (BE[facility]ER)[address] [place] [address] NRBC (PER 100 WBCS) BY AUTOMATED COUNT 0.0 % Normal 0 [facility] Comment on above: Performed By: #### L [id number] ####[facility] (BE[facility]ER)[address] [place] [address] PLATELETS (10*3/UL) IN BLOOD AUTOMATED COUNT 134 10*3/uL Low 150-400 [facility] Comment on above: Performed By: #### L [id number] ####[facility] (BE[facility]ER)[address] [place] [address] RBC (Bld) [#/Vol] 3.74 10*6/uL Low 4.20-5.70 [facility] Comment on above: Performed By: #### L [id number] ####[facility] ([facility] [place])[address] [place] [address] WBC (Bld) [#/Vol] 4.55 10*3/uL Normal 4.00-10.60 [facility] Comment on above: Performed By: #### L [id number] ####[facility] ([facility] [place])[address] [place] [address] HPon 02-27-2024 HP Normal [facility] POTASSIUM, WHOLE BLOODon Potassium [Moles/Vol] 3.4 mmol/L Low 3.5-5.1 [facility] Comment on above: Performed By: #### P OTASSIUM, WHOLE BLOOD ####[facility] RESPIRATORY [id number] [place] [address] [place] SODIUM, WHOLE BLOODon 2023 SODIUM, WHOLE BLOOD 135 Low 136-145 [facility] Comment on above: Performed By: #### S ODIUM, WHOLE BLOOD ####[facility] RESPIRATORY [id number] [place] [address] [place] TROPONIN Ion 02-27-2024 Troponin I.cardiac [Mass/Vol] 0.04 ng/mL Normal 0.00-0.04 [facility] Comment on above: Performed By: #### L [id number] ####[facility] ([facility] [place])[address] [place] [address] Troponin I.cardiac [Mass/Vol] 0.02 ng/mL Normal 0.00-0.04 [facility] Comment on above: Performed By: #### L [id number] ####[facility] ([facility] [place])[address] [place] [address] Troponin I.cardiac [Mass/Vol] 0.01 ng/mL Normal 0.00-0.04 [facility] Comment on above: Performed By: #### L [id number] ####[facility] ([facility] [place])[address] [facility] [place] [address] Troponin I.cardiac [Mass/Vol] 0.01 ng/mL Normal 0.00-0.04 [facility] Comment on above: Performed By: #### L [id number] ####[facility] ([facility] [place])[address] [facility] [place] [address] Troponin I.cardiac [Mass/Vol] 0.02 ng/mL Normal 0.00-0.04 [facility] Comment on above: Performed By: #### L [id number] ####[facility] ([facility] [place])[address] [facility] [place] [address] Troponin I.cardiac [Mass/Vol] 0.01 ng/mL Normal 0.00-0.04 [facility] Comment on above: Performed By: #### L [id number] ####[facility] ([facility] [place])[address] [facility] [place] [address] 30on 02-26-2024 30 The patient is Moderately Stable - Low risk of patient condition declining or worsening The patient's goals for the shift include The clinical goals for the shift include Over the shift, the patient did not make progress toward the following goals. Normal [facility] ANTI-XA (HEPARIN LEVEL)on HEPARIN UNFRACTIONATED (U/ML) IN PPP BY CHROMOGENIC METHOD 0.14 IU/mL Invalid Interpretation Code 0.3-0.7 [facility] Comment on above: Result Comment: [place] roxaban and Apixaban will interfere with the anti Xa assay used to monitor UFH and LMWH. Performed By: #### L [id number] ####[facility] ([facility] [place])[address] [facility] [place] [address] HEPARIN UNFRACTIONATED (U/ML) IN PPP BY CHROMOGENIC METHOD <0.10 Invalid Interpretation Code 0.3-0.7 [facility] Comment on above: Result Comment: [place] roxaban and Apixaban will interfere with the anti Xa assay used to monitor UFH and LMWH. Performed By: #### L [id number] ####[facility] ([facility] [place])[address] [facility] [place] [address] APOLIPOPROTEIN B-100on 02-25 Magnesium [Mass/Vol] 50 mg/dL Low 66-133 [facility] Comment on above: Result Comment: REFE RENCE INTERVAL: Apolipoprotein BA desirable fasting serum Apo B concentration for the preventionof atherosclerotic cardiovascular disease in adults is less than90 mg/dL. A fasting serum Apo B concentration of 130 mg/dL orgreater corresponds to a LDL cholesterol concentration greaterthan 160 mg/dL and constitutes a risk enhancing factor foratherosclerotic cardiovascular disease in adults.Performed By: [facility] [place], [place] [address] Director: Josh Olvera MD, PhDCLIA Number: [id number] Performed By: #### L [id number] ####[facility] ([facility] [place] [place] [address] APTTon 02-26-2024 ACTIVATED PARTIAL THROMBOPLASTIN TIME IN PPP BY COAGULATION ASSAY 32.6 Seconds Normal 25.0-35.0 [facility] Comment on above: Result Comment: Clin ical significance of the APTT is questionable in the presence of heparin. Performed By: #### L [id number] ####[facility] ([facility] [place])[address] [place] [address] B-TYPE NATRIURETIC PEPTIDEon 02-26-2024 Natriuretic peptide B (Bld) [Mass/Vol] 321 pg/mL High 0-100 [facility] Comment on above: Performed By: #### L [id number] ####[facility] ([facility] [place])[address] [place] [address] CBC WITH AUTO DIFFERENTIALon 02-26-2024 Basophils (Bld) [#/Vol] 0.03 10*3/uL Normal 0.00-0.20 [facility] Comment on above: Performed By: #### L [id number] ####[facility] ([facility] [place])[address] [place] [address] Basophils/100 WBC (Bld) 0.5 % Normal 0.0-1.0 [facility] Comment on above: Performed By: #### L [id number] ####[facility] (BEAKER)[address] [place] [address] Eosinophils (Bld) [#/Vol] 0.04 10*3/uL Normal 0.00-0.50 [facility] Comment on above: Performed By: #### L [id number] ####[facility] (BE[facility]ER)[address] [place] [address] Eosinophils/100 WBC (Bld) 0.6 % Normal 0.0-6.0 [facility] Comment on above: Performed By: #### L [id number] ####[facility] (BE[facility]ER)[address] [place] [address] Erythrocyte distribution width (RBC) [Ratio] 12.9 % Normal 11.5-15.0 [facility] Comment on above: Performed By: #### L [id number] ####[facility] [place] [address] ERYTHROCYTE MEAN CORPUSCULAR HEMOGLOBIN CONCENTRATION (G/DL) BY AUTOMATED 31.2 g/dL Low 32.0-35.0 [facility] Comment on above: Performed By: #### L [id number] ####[facility] ([facility])[address] [place] [address] Hematocrit (Bld) [Volume fraction] 43.6 % Normal 39.0-55.0 [facility] Comment on above: Performed By: #### L [id number] ####[facility] (BE[facility]ER)[address] [place] [address] Hemoglobin (Bld) [Mass/Vol] 13.6 g/dL Normal 13.0-17.0 [facility] Comment on above: Performed By: #### L [id number] ####[facility] ([facility]ER)[address] [place] [address] Immature granulocytes (Bld) [#/Vol] 0.03 10*3/uL Normal 0.00-0.20 [facility] Comment on above: Performed By: #### L [id number] ####[facility] ([facility]ER)[address] [place] [address] Immature granulocytes/100 WBC (Bld) 0.5 % Normal 0.0-1.0 [facility] Comment on above: Performed By: #### L [id number] ####[facility] [place] [address] Lymphocytes (Bld) [#/Vol] 0.52 10*3/uL Low 1.20-4.00 [facility] Comment on above: Performed By: #### L [id number] ####[facility] [place] [address] Lymphocytes/100 WBC (Bld) 8.4 % Low 20.0-45.0 [facility] Comment on above: Performed By: #### L [id number] ####[facility] [place] [address] MCH (RBC) [Entitic mass] 32.3 pg Normal 27.0-33.0 [facility] Comment on above: Performed By: #### L [id number] ####[facility] [place] [address] MCV (RBC) [Entitic vol] 103.6 fL High 82.0-98.0 [facility] Comment on above: Performed By: #### L [id number] ####[facility] ([facility])[address] [place] [address] Monocytes (Bld) [#/Vol] 0.71 10*3/uL Normal 0.10-1.00 [facility] Comment on above: Performed By: #### L [id number] ####[facility] ([facility]ER)[address] [place] [address] Monocytes/100 WBC (Bld) 11.5 % Normal 5.0-12.0 [facility] Comment on above: Performed By: #### L [id number] ####[facility] ([facility]ER)[address] [place] [address] Neutrophils (Bld) [#/Vol] 4.86 10*3/uL Normal 1.60-7.60 [facility] Comment on above: Performed By: #### L [id number] ####[facility] ([facility])[address] [place] [address] Neutrophils/100 WBC (Bld) 78.5 % High 40.0-72.0 [facility] Comment on above: Performed By: #### L [id number] ####[facility] ([facility] [place])[address] [address] NRBC (PER 100 WBCS) BY AUTOMATED COUNT 0.0 % Normal 0 [facility] Comment on above: Performed By: #### L [id number] ####[facility] ([facility] [place])[address] [address] PLATELETS (10*3/UL) IN BLOOD AUTOMATED COUNT 153 10*3/uL Normal 150-400 [facility] Comment on above: Performed By: #### L [id number] ####[facility] ([facility] [place])[address] [address] RBC (Bld) [#/Vol] 4.21 10*6/uL Normal 4.20-5.70 [facility] Comment on above: Performed By: #### L [id number] ####[facility] ([facility] [place])[address] [address] WBC (Bld) [#/Vol] 6.19 10*3/uL Normal 4.00-10.60 [facility] Comment on above: Performed By: #### L [id number] ####[facility] ([facility] [place])[address] [address] CKon 02-26-2024 CREATINE KINASE (U/L) IN SER/PLAS 94.0 U/L Normal 30.0-223.0 [facility] Comment on above: Performed By: #### L [id number] ####[facility] [place] [address] COMPREHENSIVE METABOLIC PANE Larry 02-26-2024 Albumin [Mass/Vol] 3.4 g/dL Low 3.5-5.7 [facility] Comment on above: Performed By: #### L [id number] ####[facility] ([facility] [place])[address] [place] [address] ALP [Catalytic activity/Vol] 89 U/L Normal 34-104 [facility] Comment on above: Performed By: #### L [id number] ####[facility] ([facility])[address] [place] [address] ALT [Catalytic activity/Vol] 16 U/L Normal 7-52 [facility] Comment on above: Performed By: #### L [id number] ####[facility] ([facility] [place])[address] [place] [address] Anion gap [Moles/Vol] 9 mmol/L Normal 7-20 [facility] Comment on above: Performed By: #### L [id number] ####[facility] ([facility])[address] [place] [address] AST [Catalytic activity/Vol] 20 U/L Normal 13-39 [facility] Comment on above: Performed By: #### L [id number] ####[facility] ([facility])[address] [place] [address] Bilirubin [Mass/Vol] 1.0 mg/dL Normal 0.3-1.0 [facility] Comment on above: Performed By: #### L [id number] ####[facility] ([facility])[address] [place] [address] Calcium [Mass/Vol] 8.6 mg/dL Normal 8.6-10.3 [facility] Comment on above: Performed By: #### L [id number] ####[facility] ([facility])[address] [place] [address] Chloride [Moles/Vol] 105 mmol/L Normal 98-107 [facility] Comment on above: Performed By: #### L [id number] ####[facility] ([facility])[address] [place] [address] CO2 [Moles/Vol] 30 mmol/L Normal 21-31 [facility] Comment on above: Performed By: #### L [id number] ####[facility] ([facility])[address] [place] [address] Creatinine [Mass/Vol] 0.90 mg/dL Normal 0.70-1.30 [facility] Comment on above: Performed By: #### L [id number] ####[facility] ([facility])[address] [place] [address] GLOMERULAR FILTRATION RATE ML/MIN/1.73 SQ M.PREDICTED 87.4 mL/min/1.73m*2 Normal >60.0 [facility] Comment on above: Result Comment: The [facility]???s estimated glomerular filtration rate (eGFR) will no [...] of individuals. Performed By: #### L [id number] ####[facility] ([facility])[address] [place] [address] Glucose [Mass/Vol] 127 mg/dL High 70-100 [facility] Comment on above: Performed By: #### L [id number] ####[facility] ([facility])[address] [facility] [place] [address] Potassium [Moles/Vol] 3.4 mmol/L Low 3.5-5.1 [facility] Comment on above: Performed By: #### L [id number] ####[facility] ([facility])[address] [place] [address] Protein [Mass/Vol] 6.9 g/dL Normal 6.0-8.3 [facility] Comment on above: Performed By: #### L [id number] ####[facility] ([facility])[address] [place] [address] Sodium [Moles/Vol] 141 mmol/L Normal 136-145 [facility] Comment on above: Performed By: #### L [id number] ####[facility] ([facility])[address] [place] [address] Urea nitrogen [Mass/Vol] 14 mg/dL Normal 7-25 [facility] Comment on above: Performed By: #### L [id number] ####[facility] ([facility])[address] [place] [address] UREA NITROGEN/CREATININE (MASS RATIO) IN SER/PLAS 15.6 Normal [facility] Comment on above: Performed By: #### L [id number] ####[facility] ([facility])[address] [place] [address] CONSULTon 02-26-2024 CONSULT Normal [facility] CTA CHEST W IV CONTRASTon CTA CHEST W IV CONTRAST Normal [facility] ETHANOLon 02-26-2024 ETHANOL (MG/DL) IN SER/PLAS <10 Normal [facility] Comment on above: Performed By: #### L [id number] ####[facility] ([facility])[address] [place] [address] ETHANOL CALCULATED (%) Normal [facility] Comment on above: Performed By: #### L AB46 ####[facility] ([facility])[address] [place] [address] HEMOGLOBIN A1Con 02-26-2024 Glucose [Mass/Vol] 88 mg/dL Normal [facility] Comment on above: Performed By: #### L [id number] ####[facility] ([facility])[address] [place] [address] HbA1c (Bld) [Mass fraction] 4.7 % Normal 4.0-6.0 [facility] Comment on above: Performed By: #### L [id number] ####[facility] ([facility])[address] [place] [address] HPon 02-26-2024 HP Normal [facility] LIPID PANELon 02-26-2024 CHOL/HDL 2.5 mg/dL Normal [facility] Comment on above: Performed By: #### L [id number] ####[facility] ([facility])[address] [place] [address] Cholesterol [Mass/Vol] 93 mg/dL Low 120-200 [facility] Comment on above: Performed By: #### L [id number] ####[facility] ([facility])[address] [place] [address] Magnesium [Mass/Vol] 59 mg/dL Normal 40-149 [facility] Comment on above: Result Comment: TRIG LYCERIDE REFERENCE RANGE:20 YEARS AND OLDER CARDIOVASCULAR RISKLESS THAN 150 mg/dL LOW [id number] TO 199 mg/dL BORDERLINE [id number] mg/dL AND GREATER HIGH RISK Performed By: #### L [id number] ####[facility] ([facility])[address] [facility] [place] [address] Magnesium [Mass/Vol] 44 mg/dL Normal 0-160 [facility] Comment on above: Performed By: #### L [id number] ####[facility] ([facility])[address] [place] [address] Magnesium [Mass/Vol] 37 mg/dL Normal 23-92 [facility] Comment on above: Performed By: #### L [id number] ####[facility] ([facility])[address] [place] [address] NON HDL CHOL. (LDL+VLDL) 56 Normal [facility] Comment on above: Performed By: #### L [id number] ####[facility] ([facility])[address] [employer], [place] [address] TOTAL VLDL-C 12 mg/dL Normal 0-40 [facility] Comment on above: Performed By: #### L [id number] ####[facility] ([facility])[address] [place] [address] LIPOPROTEIN A (LPA)on 2023 Magnesium [Mass/Vol] 10 mg/dL Normal <=29 [facility] Comment on above: Result Comment: Perf ormed By: [facility] [id number] [place], [place] [id number] Director: Josh Olvera MD, PhDCLIA Number: [id number] Performed By: #### L [id number] ####[facility] ([facility])[address] [place] [address] MAGNESIUMon 02-26-2024 Magnesium [Mass/Vol] 1.7 mg/dL Low 1.9-2.7 [facility] Comment on above: Performed By: #### L [id number] ####[facility] ([facility])[address] [facility] [place] [address] PHOSPHORUSon 02-26-2024 Magnesium [Mass/Vol] 3.7 mg/dL Normal 2.5-5.0 [facility] Comment on above: Performed By: #### L [id number] ####[facility] ([facility])[address] [place] [address] TOXICOLOGY PANEL URINEon AMPHETAMINE+METHAMP HETAMINE SCREEN (PRESENCE) IN URINE Negative Normal Negative [facility] Comment on above: Performed By: #### L [id number] ####[facility] ([facility])[address] [place] [address] BARBITURATES PRESENCE IN URINE BY SCREEN METHOD Negative Normal Negative [facility] Comment on above: Performed By: #### L [id number] ####[facility] ([facility])[address] [place] [address] Benzodiazepines Ql (U) Negative Normal Negative [facility] Comment on above: Performed By: #### L [id number] ####[facility] ([facility])[address] [place] [address] CANNABINOID (PRESENCE) IN URINE BY SCREEN METHOD Negative Normal Negative [facility] Comment on above: Performed By: #### L [id number] ####[facility] [place] [address] Cocaine Ql (U) Negative Normal Negative [facility] Comment on above: Performed By: #### L [id number] ####[facility] ([facility])[address] [place] [address] METHADONE (PRESENCE) IN URINE BY SCREEN METHOD Negative Normal Negative [facility] Comment on above: Performed By: #### L [id number] ####[facility] ([facility])[address] [place] [address] OPIATES (PRESENCE) IN URINE BY SCREEN METHOD Negative Normal Negative [facility] Comment on above: Performed By: #### L [id number] ####[facility] ([facility])[address] [place] [address] PHENCYCLIDINE PRESENCE IN URINE BY SCREEN METHOD Negative Normal Negative [facility] Comment on above: Performed By: #### L [id number] ####[facility] ([facility])[address] [place] [address] Propoxyphene Screen Ql (U) Negative Normal Negative [facility] Comment on above: Performed By: #### L [id number] ####[facility] ([facility])[address] [place] [address] TRICYCLIC ANTIDEPRESSANTS (PRESENCE) IN URINE Negative Normal Negative [facility] Comment on above: Performed By: #### L [id number] ####[facility] ([facility])[address] [place] [address] TROPONIN Ion 02-26-2024 Troponin I.cardiac [Mass/Vol] 0.02 ng/mL Normal 0.00-0.04 [facility] Comment on above: Performed By: #### L [id number] ####[facility] ([facility])[address] [place] [address] Troponin I.cardiac [Mass/Vol] 0.02 ng/mL Normal 0.00-0.04 [facility] Comment on above: Performed By: #### L [id number] ####[facility] ([facility])[address] [place] [address] Troponin I.cardiac [Mass/Vol] 0.01 ng/mL Normal 0.00-0.04 [facility] Comment on above: Performed By: #### L [id number] ####[facility] ([facility])[address] [place] [address] TSHon 02-26-2024 THYROTROPIN (MIU/L) IN SER/PLAS BY DETECTION LIMIT <= 0.05 MIU/L 1.59 mIU/L Normal 0.34-5.60 [facility] Comment on above: Performed By: #### L [id number] ####[facility] ([facility])[address] [place] [address] CBC AND AUTO DIFFon 02-22-20 ABSOLUTE BASOPHIL 0.0 X10E9/L Normal 0.0-0.2 [facility] Comment on above: Performed By: #### P INR, 86901-0 #### [facility] ([id number]) [address] [place] [address]369 #### CBCA, CMP #### [facility] ([id number]) [address], [address] [place] [address] ABSOLUTE NEUTROPHIL 2.3 X10E9/L Normal 1.5-6.6 [facility] Comment on above: Performed By: #### P INR, 03856-0 #### [facility] ([id number]) [address] [place] [address] 35646 #### CBCA, CMP #### [facility] ([id number]) [address], [address] [place] [address] Basophils/100 WBC (Bld) 0.7 % Normal [facility] Comment on above: Performed By: #### P INR, 84819-6 #### [facility] ([id number]) [address] [place] [address] 65392 #### CBCA, CMP #### [facility] ([id number]) [address], [address] [place] [address] Eosinophils (Bld) [#/Vol] 0.2 10*3/uL Normal 0.0-0.4 [facility] Comment on above: Performed By: #### P INR, 66380-6 #### [facility] ([id number]) [address] [place] [address] 91608 #### CBCA, CMP #### [facility] ([id number]) [address], [address] [place] [address] Eosinophils/100 WBC (Bld) 3.8 % Normal [facility] Comment on above: Performed By: #### P INR, 30165-7 #### [facility] ([id number]) [address] [place] [address] 42225 #### CBCA, CMP #### [facility] ([id number]) [address], [address] [place] [address] Erythrocyte distribution width (RBC) [Ratio] 14.3 % Normal 11.5-15.0 [facility] Comment on above: Performed By: #### P INR, 47815-9 #### [facility] ([id number]) [address] [place] [address] 30144 #### CBCA, CMP #### [facility] ([id number]) [address], [address] [place] [address] Hematocrit (Bld) [Volume fraction] 42.1 % Normal 39-49 [facility] Comment on above: Performed By: #### P INR, 89675-0 #### [facility] ([id number]) [address] [place] [address] 94138 #### CBCA, CMP #### [facility] ([id number]) [address], [address] [place] [address] Hemoglobin (Bld) [Mass/Vol] 13.9 g/dL Normal 13.0-17.0 [facility] Comment on above: Performed By: #### P INR, 49877-8 #### [facility] ([id number]) [address] [place] [address] 72060 #### CBCA, CMP #### [facility] ([id number]) [address], [address] [place] [address] Lymphocytes (Bld) [#/Vol] 1.4 10*3/uL Normal 1.0-3.5 [facility] Comment on above: Performed By: #### P INR, 78172-0 #### [facility] ([id number]) [address] [place] [address] 11156 #### CBCA, CMP #### [facility] ([id number]) [address] [place] [address] Lymphocytes/100 WBC (Bld) 31.5 % Normal [facility] Comment on above: Performed By: #### P INR, 01906-0 #### [facility] ([id number]) [address] [place] [address] 19150 #### CBCA, CMP #### [facility] ([id number]) [address], [address] [place] [address] MCH (RBC) [Entitic mass] 32.8 pg Normal 27-34 [facility] Comment on above: Performed By: #### P INR, 59281-0 #### [facility] ([id number]) [address] [place] [address] 27696 #### CBCA, CMP #### [facility] ([id number]) [address], [address] [place] [address] MCHC (RBC) [Mass/Vol] 32.9 g/dL Normal 32-36 [facility] Comment on above: Performed By: #### P INR, 22201-8 #### [facility] ([id number]) [address] [place] [address] 96672 #### CBCA, CMP #### [facility] ([id number]) [address], [address] [place] [address] MCV (RBC) [Entitic vol] 100 fL Normal 80-100 [facility] Comment on above: Performed By: #### P INR, 00720-8 #### [facility] ([id number]) [address] [place] [address] 44643 #### CBCA, CMP #### [facility] ([id number]) [address] [facility], [address] [place] [address] Monocytes (Bld) [#/Vol] 0.5 10*3/uL Normal 0-0.9 [facility] Comment on above: Performed By: #### P INR, 98358-6 #### [facility] ([id number]) [address] [place] [address] 22893 #### CBCA, CMP #### [facility] ([id number]) [address] [facility], [address] [place] [address] Monocytes/100 WBC (Bld) 10.8 % Normal [facility] Comment on above: Performed By: #### P INR, 94145-9 #### [facility] ([id number]) [address] [place] [address] 82257 #### CBCA, CMP #### [facility] ([id number]) [address] [place] [address] Neutrophils/100 WBC (Bld) 53.2 % Normal [facility] Comment on above: Performed By: #### P INR, 26912-2 #### [facility] ([id number]) [address] [place] [address] 39928 #### CBCA, CMP #### [facility] ([id number]) [address] [place] [address] Platelet mean volume (Bld) [Entitic vol] 9.8 fL Normal 7-12 [facility] Comment on above: Performed By: #### P INR, 65027-1 #### [facility] ([id number]) [address] [place] [address] 19405 #### CBCA, CMP #### [facility] ([id number]) [address] [facility], [address] [place] [address] Platelets (Bld) [#/Vol] 164 10*3/uL Normal 150-450 [facility] Comment on above: Performed By: #### P INR, 92970-7 #### [facility] ([id number]) [address] [place] [address] 95765 #### CBCA, CMP #### [facility] ([id number]) [address] [facility], [address] [place] [address] RBC COUNT 4.22 X10E12/L Normal 4.10-5.70 [facility] Comment on above: Performed By: #### P INR, 21679-4 #### [facility] ([id number]) [address] [place] [address] 58986 #### CBCA, CMP #### [facility] ([id number]) [address] [facility], [address] [place] [address] WBC (Bld) [#/Vol] 4.3 10*3/uL Normal 4.0-11.0 [facility] Comment on above: Performed By: #### P INR, 50579-6 #### [facility] ([id number]) [address] [place] [address] 47997 #### CBCA, CMP #### [facility] ([id number]) [address] [place] [address] COMPREHENSIVE METABOLIC PANE [facility] 02-22-2024 Albumin [Mass/Vol] 3.4 g/dL Normal 3.2-5.3 [facility] Comment on above: Performed By: #### P INR, 16376-4 #### [facility] ([id number]) [address] [place] [address] 66760 #### CBCA, CMP #### [facility] ([id number]) [address], [address] [place] [address] ALP [Catalytic activity/Vol] 88 U/L Normal 39-130 [facility] Comment on above: Performed By: #### P INR, 70681-8 #### [facility] ([id number]) [address] [place] [address] 61875 #### CBCA, CMP #### [facility] ([id number]) [address], [address] [place] [address] ALT [Catalytic activity/Vol] 15 U/L Normal 0-40 [facility] Comment on above: Performed By: #### P INR, 06281-3 #### [facility] ([id number]) [address] [place] [address] 99706 #### CBCA, CMP #### [facility] ([id number]) [address] [place] [address] Anion gap [Moles/Vol] 8 mmol/L Normal 5-15 [facility] Comment on above: Performed By: #### P INR, 24530-2 #### [facility] ([id number]) [address] [place] [address] 50640 #### CBCA, CMP #### [facility] ([id number]) [address] [place] [address] AST [Catalytic activity/Vol] 21 U/L Normal 0-41 [facility] Comment on above: Performed By: #### P INR, 84410-2 #### [facility] ([id number]) [address] [place] [address] 39188 #### CBCA, CMP #### [facility] ([id number]) [address] [place] [address] Bilirubin [Mass/Vol] 0.5 mg/dL Normal 0.3-1.2 [facility] Comment on above: Performed By: #### P INR, 17006-7 #### [facility] ([id number]) [address] [place] [address] 91377 #### CBCA, CMP #### [facility] ([id number]) [address] [place] [address] Calcium [Mass/Vol] 8.9 mg/dL Normal 8.5-10.5 [facility] Comment on above: Performed By: #### P INR, 53613-3 #### [facility] ([id number]) [address] [place] [address] 06266 #### CBCA, CMP #### [facility] ([id number]) [address] [place] [address] Chloride [Moles/Vol] 109 mmol/L Normal 98-109 [facility] Comment on above: Performed By: #### P INR, 43743-4 #### [facility] ([id number]) [address] [place] [address] 08650 #### CBCA, CMP #### [facility] ([id number]) [address] [place] [address] CO2 [Moles/Vol] 26 mmol/L Normal 22-32 [facility] Comment on above: Performed By: #### P INR, 32399-6 #### [facility] ([id number]) [address] [place] [address] 99636 #### CBCA, CMP #### [facility] ([id number]) [address] [place] [address] Creatinine [Mass/Vol] 0.80 mg/dL Normal 0.60-1.30 [facility] Comment on above: Result Comment: METH OD TRACEABLE TO IDMS STANDARD Performed By: #### P INR, 49358-0 #### [facility] ([id number]) [address] [place] [address] 26995 #### CBCA, CMP #### [facility] ([id number]) [address] [place] [address] eGFR (CKD-EPI) NON-RACE DEPENDENT >90 Normal >59 [facility] Comment on above: Result Comment: Reported eGFR is based on the CKD-EPI 2020 equation that does not use a race coefficient. Performed By: #### P INR, 26055-1 #### [facility] ([id number]) [address] [place] [address] 02475 #### CBCA, CMP #### [facility] ([id number]) [address] [place] [address] Glucose [Mass/Vol] 106 mg/dL High 65-99 [facility] Comment on above: Performed By: #### P INR, 95095-7 #### [facility] ([id number]) [address] [place] [address] 63948 #### CBCA, CMP #### [facility] ([id number]) [address] [place] [address] Potassium [Moles/Vol] 3.4 mmol/L Low 3.5-5.0 [facility] Comment on above: Performed By: #### P INR, 41261-6 #### [facility] ([id number]) [address] [place] [address] 24159 #### CBCA, CMP #### [facility] ([id number]) [address] [facility] [place] [address] Protein [Mass/Vol] 6.8 g/dL Normal 6.0-8.0 [facility] Comment on above: Performed By: #### P INR, 49953-7 #### [facility] ([id number]) [address] [place] [address] 24058 #### CBCA, CMP #### [facility] ([id number]) [address], [address] [place] [address] Sodium [Moles/Vol] 143 mmol/L Normal 134-146 [facility] Comment on above: Performed By: #### P INR, 97881-8 #### [facility] ([id number]) [address] [place] [address] #### CBCA, CMP #### [facility] ([id number]) [address], [address] [place] [address] Urea nitrogen [Mass/Vol] 15 mg/dL Normal 5-27 [facility] Comment on above: Performed By: #### P INR, 57312-4 #### [facility] ([id number]) [address] [place] [address] #### CBCA, CMP #### [facility] ([id number]) [address], [address] [place] [address] PROTIME AND INRon 02-22-2024 INR Coag (PPP) [Relative time] 1.2 {INR} High 0.8-1.1 [facility] Comment on above: Performed By: #### P INR, 97086-2 #### [facility] ([id number]) [address], [place] [address] #### CBCA, CMP #### [facility] ([id number]) [address], [address] [place] [address] PT Coag (PPP) [Time] 14.1 s High 9.8-13.2 [facility] Comment on above: Result Comment: NEW REFERENCE RANGE Performed By: #### P INR, 82694-5 #### [facility] ([id number]) [address] [place] [address], [place] [address] #### CBCA, CMP #### [facility] ([id number]) [address], [address] [place] [address] aPTT Coag (PPP) [Time]on aPTT Coag (Bld) [Time] 39 s High 26-37 [facility] Comment on above: Result Comment: NEW REFERENCE RANGE Performed By: #### P INR, 19129-4 #### [facility] ([id number]) [address] [place] [address] #### CBCA, CMP #### [facility] ([id number]) [address], [address] [place] [address] NURSNOTEon 02-19-2024 NURSNOTE [facility] HPon 02-09-2024 HP [facility] 36on 02-08-2024 36 [facility] 37on 05-25-2023 37 [facility] Encounters Encounter Date Encounter Type Care Provider Facility Start: 05-06-[address] [facility] Start: 05-06-2024 Encounter for preprocedural cardiovascular examination [facility] Start: 05-06-[address] [facility] Start: 04-30-2024 End: 04-30-[address] [facility] Start: 04-24-2024 End: 04-24-2024 ambulatory [facility] Start: 04-19-2024 End: [facility]: 04-02-2024 End: 04-03-2024 ambulatory [facility] Start: 03-13-2024 End: 03-14-2024 ambulatory [facility] Start: 03-05-2024 Evaluation and manag ement of inpatient [facility] Start: 03-01-2024 Evaluation and manag ement of inpatient [facility] Start: 02-28-2024 Evaluation and manag ement of inpatient [facility] Start: 02-28-2024 Evaluation and manag ement of inpatient [facility] Start: 02-27-2024 Evaluation and manag ement of inpatient [facility] Start: 02-27-2024 Evaluation and manag ement of inpatient [facility] Start: 02-26-2024 Evaluation and manag ement of inpatient [facility] Start: 02-26-2024 Evaluation and manag ement of inpatient [facility] Start: 02-26-2024 Evaluation and manag ement of inpatient [facility] Start: 02-26-2024 Evaluation and manag ement of inpatient [facility] Start: 02-26-2024 End: 02-26-2024 ambulatory [facility] Start: 02-26-2024 End: 03-06-2024 Evaluation and management of inpatient [facility] Start: 02-22-2024 End: 02-22-2024 ambulatory [facility] Start: 02-09-2024 End: 02-09-2024 ambulatory [facility] Start: 02-09-2024 End: 02-09-2024 ambulatory [facility] Start: 02-09-2024 End: 02-09-2024 [facility] Start: 01-10-2024 End: 01-10-2024 ambulatory [facility] Start: 12-29-2023 ambulatory [facility] L[facility] Facility[facility] Start: 12-26-2023 End: 12-26-2023 ambulatory ZAYDA LEUNG Facility:[facility] Start: 12-26-2023 End: 12-26-2023 Patient encounter procedure ZAYDA LEUNG [facility] Start: 12-19-2023 ambulatory Nova [facility] Lue Facility:[facility] Start: 12-12-2023 End: 12-13-2023 ambulatory [facility] Lue Facility:[id number] Start: 12-12-2023 End: 12-12-2023 ambulatory Nova M[facility] Lue Facility:[id number] Start: 05-25-2023 End: 05-25-2023 ambulatory [facility] Procedures Date Procedure Procedure Detail Performing Clinician Start: 04-24-2024 Follow-up visit ABE FERNÁNDEZ Start: 04-02-2024 Follow-up visit ABE FERNÁNDEZ Start: 03-13-2024 Follow-up visit ABE FERNÁNDEZ Start: 02-09-2024 Follow-up visit ABE FERNÁNDEZ Start: 01-10-2024 Follow-up visit ABE FERNÁNDEZ Start: 05-25-2023 Follow-up visit ABE FERNÁNDEZ Payers Date Payer Category Payer Unknown [id number] 1945 Unknown [id number] [id number] [id number] 1945 Unknown [id number] 2.16.8 [id number] 1945 Unknown [id number] 2.16.8 [id number] 1945 Unknown [id number] 2.16.8 [id number] 1945 Unknown [id number] 2.16.8 [id number] 1945 Unknown [id number] 2.16.8 [id number] Social History Date Type Detail Facility Tobacco smoking status No Smoking Status Entered [facility] Sex Assigned At Male [facility] Clinical Notes 05-25-2023 to 04-24-2024 Note Date & Type Note Facility 04-24-[address] [facility] 04-24-[address] [facility] 04-19-[address] [facility] 04-02-[address] [facility] 04-02-[address] [facility] 03-13-[address] [facility] 03-06-[address] [facility] 03-06-[address] [facility] 03-06-[address] [facility] 03-06-[address] [facility] 03-05-[address] [facility] 03-05-[address] [facility] 03-05-[address] [facility] 03-05-[address] [facility] 03-05-[address] [facility] 03-04-[address] [facility] 03-04-[address] 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 Attempted time : 14:08-14:10 [facility] 03-04-[address] [facility] 03-04-[address] [facility] 03-04-[address] [facility] 03-03-[address] [facility] 03-03-2024 Note Sent updates to Lino conn at the [place]. [facility] 03-02-[address] [facility] 03-02-[address] [facility] 03-02-[address] [facility] 03-02-[address] [facility] 03-01-[address] [facility] 03-01-[address] [facility] 03-01-[address] [facility] 03-01-[address] [facility] 02-29-[address] [facility] 02-29-[address] [facility] 02-29-[address] [facility] 02-29-[address] [facility] 02-29-[address] [facility] 02-29-[address] [facility] 02-29-[address] [facility] 02-28-[address] [facility] 02-28-[address] [facility] 02-28-2024 Note Physical Therapy Patient medically unstable, not appropriate for PT evaluation. Will follow up and evaluate as appropriate. Kuldeep Garces PT, DPT [facility] 02-28-2024 Note Occupational Therapy Name: Neptali Reeves Date of : 1945 Today's Date: 02/28/24 Pt is unable to be seen for therapy at this time secondary to Medically unstable per nsg . Check No Charge Time attempted: 908 [facility] 02-28-2024 Note Discharge Planning U pdate: 0906 Attempted to see patient but was unsuccessful as patient is currently having severe difficulty breathing & talking so they may possible be intubated soon if needed. OTM to follow. [facility] 02-28-[address] [facility] 02-28-[address] [facility] 02-27-[address] [facility] 02-27-[address] [facility] 02-27-[address] [facility] 02-27-[address] [facility] 02-26-[address] [facility] 02-26-[address] [facility] 02-09-[address] [facility] 01-10-[address] [facility] 01-10-[address] [facility] 05-25-[address] [facility] 05-25-[address] [facility] Evaluation + Plan note No data available for this section [facility] Hospital Discharge instructions No data available for this section [facility] Progress note No data available for this section [facility] Summary Purpose Family History No Family History Records Found Advance Directives No Advanced Directives Records FoundNo Advanced Directives Records FoundNo Advanced Directives Records Found Additional Source Comments Patient Care team informatio n (unrecognized section and content) Personnel Name: JAD MITCHELL MD Address: Address: [address] [place] [id number] (unrecognized sect ion and content) No Status Records FoundNo Status Records FoundNo Status Records Found INFORMATION SOURCE (unrecogn ized section and content) DATE CREATED AUTHOR 01/03/2024 [facility] DATE CREATED AUTHOR AUTHOR'S ORGANIZ ATION 02/25/2024 [facility] DATE CREATED AUTHOR AUTHOR'S ORGANIZ ATION 05/13/[address] [facility] FOR RECORDS PERTAINING TO PATIENTS WHO ARE [...] BE BASED ON THE PRIMARY CLINICAL RECORDS. [facility] [facility]. provides no warranty or guarantee of the accuracy or completeness of information in this document.
[2024-05-14 18:09] LABS: BOX Test Reference Lab FIRELANDS
== END 2024-05-14 12:52 | disposition home or self-care (01) ==
LOC: LAB 12:51
PROVIDERS: PCP Family Medicine; Visit Provider Urology
DX: N20.0 Calculus of kidney (principal)
CPT/HCPCS: 36415; 87086

== ENCOUNTER 2024-05-16 11:30 | Outpatient (RCR) | payer MEDICARE, SELFPAY ==
--- NOTE | 2024-07-02 12:41 | CR1_ITS ---
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
== END 2024-07-02 08:01 | disposition home or self-care (01) ==
LOC: CR 11:30
PROVIDERS: PCP Family Medicine; Visit Provider Nurse Practitioner Family
DX: I50.9 Heart failure, unspecified (principal)

== ENCOUNTER 2024-06-17 16:51 | Outpatient (OUT) | payer MEDICARE, SELFPAY ==
--- OUTSIDE RECORDS SUMMARY | 2024-06-17 17:15 | XMS_ITS | CCD ---
Author Organization [facility] Care Team Providers Care Manager Store Name Role Phone JAD MITCHELL Primary Care Physician [phone] Nova Wang Attending Unavailable ZAYDA LEUNG Attending Unavailable Nova Wang Referring Unavailable Nova Wnag Attending Unavailable Nova Wang Attending Unavailable Nova Wang Referring Unavailable Nova Wang Attending Unavailable EKWENNA, KELVIN O Referring Unavailable MIGUEL GARCIA Primary Care Unavailable Ekwenna, Kelvin O Attending Unavailable Ekwenna, Kelvin O Admitting Unavailable Ekwenna Kelvin POE Attending Provider [phone] EKWENNA, OBI Admitting Unavailable EKWENNA, OBI Attending Unavailable TYREE RAY Referring Unavailable PRADEEP, ABE Referring Unavailable RADIOLOGY, RADIOLOGIST Attending Unavailab le EKWENNA, OBI Referring Unavailable EKWENNA, OBI Referring Unavailable EKWENNA, OBI Referring Unavailable LEONID RAMIREZ Attending Unavailable EKWENNA, OBI Attending Unavailable PRADEEP, ABE Referring Unavailable PRADEEP, ABE Referring Unavailable PRADEEP, ABE Referring Unavailable PRADEEP, ABE Referring Unavailable PRADEEP, ABE Referring Unavailable TYREE RAY Referring Unavailable EKWENNA, OBI Referring Unavailable EKWENNA, OBI Referring Unavailable MELISSA DAVIS Referring Unavailable CORY TYREE Referring Unavailable EKWENNA, OBI Attending Unavailable CORY TYREE Referring Unavailable PRADEEP, ABE Referring Unavailable RANDOLPH PROCTOR Attending Unavailable RANDOLPH PROCTOR Attending Unavailable CORY TYREE Referring Unavailable PRADEEP, ABE Referring Unavailable ABE FERNÁNDEZ Referring Unavailable RANDOLPH PROCTOR Attending Unavailable ABE FERNÁNDEZ Admitting Unavailable SAILAJA YOUNGBLOOD Attending Unavailable Problems Problem Classification Problem Date Documented [...] disease (7 sources) Atherosclerotic heart disease of viejas coronary artery without angina pectoris; Translations: [Coronary atherosclerosis due to lipid rich plaque] Onset: 06-08-2022 Chronic Disorders of lipid metabolism (2 sources) Pure hypercholesterolemia, unspecified; Translations: [Pure hypercholesterolemia, unspecified] Onset: 03-13-2024 Chronic Essential hypertension (2 sources) Essential (primary) hypertension; Translations: [Essential (primary) hypertension] Onset: 06-08-2022 Chronic Genitourinary symptoms and ill-defined conditions (1 source) Retention of urine; Translations: [Retention of urine, unspecified] Onset: 12-26-2023 Episodic Hypertension with complications and secondary hypertension (2 sources) Hypertensive heart disease with heart failure; Translations: [Hypertensive heart disease with heart failure] Onset: 03-13-2024 Chronic Other diseases of kidney and ureters (2 sources) Other specified disorders of kidney and ureter; Translations: [Other specified disorders of kidney and ureter] Onset: 04-19-2024 Chronic Other diseases of veins and lymphatics (2 sources) Venous insufficiency (chronic) (peripheral); Translations: [Venous insufficiency (chronic) (peripheral)] Onset: 04-24-2024 Episodic Residual codes; unclassified (2 sources) Pain, unspecified; Translations: [Pain, unspecified] Onset: 05-21-2024 Episodic Unclassified (2 sources) Nephrolithiasis; Translations: [Nephrolithiasis] Onset: 02-09-2024 Results Test Name Value Interpretation Reference Range Facility ANESon 05-21-2024 ANES [facility] ANES [facility] HPon 05-21-2024 HP [facility] NURSNOTEon 05-21-2024 DC Spoke with Mehdi tovar om [employer], he stated it is not necessary to interrogate patients pacemaker. Pt is 100% paced and capture AV paced with no issues noted. Dr Ashley notified. 1245 cont with no problems. Stable for DC home. [facility] OPNOTEon 05-21-2024 OPNOTE [facility] Orders Onlyon 05-21-2024 Orders Only [facility] POCT GLUCOSE METER UNSOLICIT ED RESULTSon 05-21-2024 Glucose [Mass/Vol] 90 mg/dL Normal 70-105 [facility] Comment on above: Order Comment: Waive d Testing in the ED is performed under the ED CLIA certificate #[id number]. Result Comment: ngro phong Performed By: #### L [id number] ####[facility] (BEAKER)[address] [place] [address] POCT PERFUSION PANEL UNSOLIC ITED RESULTSon 05-21-2024 CO2 [Moles/Vol] 27.0 mmol/L Normal 21.0-29.0 [facility] Comment on above: Performed By: #### L [id number] ####[facility] ([facility]AKER)[address] [place] [address] Glucose [Mass/Vol] 96 mg/dL Normal 70-105 [facility] Comment on above: Performed By: #### L [id number] ####[facility] ([facility])[address] [place] [address] HCO3 (Bld) [Moles/Vol] 25.5 mmol/L Normal 23.0-28.0 [facility] Comment on above: Performed By: #### L [id number] ####[facility] ([facility] [place] [address] Hematocrit (Bld) [Volume fraction] 42 % Normal 38-51 [facility] Comment on above: Performed By: #### L [id number] ####[facility] ([facility])[address] [place] [address] Hemoglobin (Bld) [Mass/Vol] 14.3 g/dL Normal 12.0-17.0 [facility] Comment on above: Performed By: #### L [id number] ####[facility] ([facility])[address] [place] [address] POCT BASE EXCESS -1.0 mmol/L Normal -2.0-3.0 [facility] Comment on above: Performed By: #### L [id number] ####[facility] ([facility])[address] [place] [address] POCT IONIZED CALCIUM 1.51 mmol/L High 1.12-1.32 [facility] Comment on above: Performed By: #### L [id number] ####[facility] ([facility])[address] [place] [address] POCT PCO2 47.1 mmHg Normal 41.0-51.0 [facility] Comment on above: Performed By: #### L [id number] ####[facility] ([facility])[address] [place] [address] POCT PH 7.34 Normal 7.31-7.41 [facility] Comment on above: Performed By: #### L [id number] ####[facility] (BEAKER)[address] [place] [address] POCT PO2 141 mmHg High 80-105 [facility] Comment on above: Performed By: #### L [id number] ####[facility] ([facility])[address] [place] [address] POCT SO2 99 % High 95-98 [facility] Comment on above: Performed By: #### L [id number] ####[facility] ([facility])[address] [place] [address] Potassium [Moles/Vol] 3.0 mmol/L Low 3.5-4.9 [facility] Comment on above: Performed By: #### L [id number] ####[facility] ([facility])[address] [place] [address] Sodium [Moles/Vol] 142 mmol/L Normal 138.0-146.0 [facility] Comment on above: Performed By: #### L [id number] ####[facility] ([facility])[address] [place] [address] URINE CULTURE, STERILE COLLE CTIONon 05-21-2024 Bacteria identified Cx Nom (U) No growth at 48 hours Normal [facility] Comment on above: Order Comment: Pre-o p diagnosis:Staghorn calculus [N20.0] Performed By: #### L [id number] ####[facility] ([facility])[address] [place] [address] GRAM STAIN RESULT Normal [facility] Comment on above: Order Comment: Pre-o p diagnosis:Staghorn calculus [N20.0] Result Comment: No p olymorphonuclear leukocytes seenNo organisms seen Performed By: #### L [id number] ####[facility] ([facility])[address] [place] [address] Orders Onlyon 05-20-2024 Orders Only Normal [facility] Urine Cultureon 05-15-2024 Bacteria identified Cx Nom (U) No Growth 2 Days PERFORMED BY: [facility] [address] [place] [address] PATHOLOGIST JUV[employer]ILE [employer]ENTION OFFICER MARTINE BAIN M.D. Normal [facility] Comment on above: Performed By: #### C UU #### [facility] [address] [place] [address] [facility] Orders Onlyon 05-10-2024 Orders Only [facility] 37on 04-24-2024 37 Normal [facility] Orders Onlyon 04-24-2024 Orders Only [facility] Follow-Upon 04-19-2024 Follow-Up [facility] 36on 04-18-2024 36 Patrice, patient's son called back and said his BP now was 131/79. I advised him to continue to keep track of his father's BP trends, taking it 1-2 hours after medications. Asked him to make our office aware of any concerns. He verbalized understanding. [facility] 36 [facility] 36on 04-04-2024 36 Please let him know, labs look good. Okay to resume Farxiga and spironolactone half tablet daily. Thanks! [facility] 36on 04-03-2024 36 Okay to resume Metoprolol. Will await his lab results to see if okay to resume the rest. Please follow-up tomorrow to make sure labs were done today. Thank you! [facility] Telephoneon 04-03-2024 Telephone [facility] 37on 04-02-2024 37 *Replacing carvedilo l with metoprolol succinate, 25mg, 1 tablet daily. *Prescription sent for an antibiotic, doxycycline 100mg. Take twice daily for 10 days. [facility] 30on 03-06-2024 30 [facility] 30 [facility] 30 [facility] BASIC METABOLIC PANELon 02-13 Anion gap [Moles/Vol] 7 mmol/L Normal - [facility] Comment on above: Performed By: #### L [id number] ####[facility] ([facility])[address] [place] [address] Calcium [Mass/Vol] 8.4 mg/dL Low 8.6-10.3 [facility] Comment on above: Performed By: #### L [id number] ####[facility] ([facility])[address] [place] [address] Chloride [Moles/Vol] 105 mmol/L Normal 98-107 [facility] Comment on above: Performed By: #### L [id number] ####[facility] ([facility])[address] [place] [address] CO2 [Moles/Vol] 32 mmol/L High 21-31 [facility] Comment on above: Performed By: #### L [id number] ####[facility] ([facility])[address] [place] [address] Creatinine [Mass/Vol] 0.95 mg/dL Normal 0.70-1.30 [facility] Comment on above: Performed By: #### L [id number] ####[facility] ([facility])[address] [place] [address] GLOMERULAR FILTRATION RATE ML/MIN/1.73 SQ M.PREDICTED 81.9 mL/min/1.73m*2 Normal >60.0 [facility] Comment on above: Result Comment: The [facility]???s estimated glomerular filtration rate (eGFR) will no [...] of individuals. Performed By: #### L [id number] ####[facility] ([facility])[address] [place] [address] Glucose [Mass/Vol] 90 mg/dL Normal 70-100 [facility] Comment on above: Performed By: #### L [id number] ####[facility] (BEAKER)[address] [place] [address] Potassium [Moles/Vol] 3.8 mmol/L Normal 3.5-5.1 [facility] Comment on above: Performed By: #### L [id number] ####[facility] (BEAKER)[address] [place] [address] Sodium [Moles/Vol] 140 mmol/L Normal 136-145 [facility] Comment on above: Performed By: #### L [id number] ####[facility] (BEAKER)[address] [place] [address] Urea nitrogen [Mass/Vol] 21 mg/dL Normal 7-25 [facility] Comment on above: Performed By: #### L [id number] ####[facility] (BEAKER)[address] [place] [address] UREA NITROGEN/CREATININE (MASS RATIO) IN SER/PLAS 22.1 Normal [facility] Comment on above: Performed By: #### L [id number] ####[facility] (BEAKER)[address] [place] [address] CBCon 03-06-2024 Erythrocyte distribution width (RBC) [Ratio] 13.3 % Normal 11.5-15.0 [facility] Comment on above: Performed By: #### L [id number] ####[facility] (BEAKER)[address] [place] [address] ERYTHROCYTE MEAN CORPUSCULAR HEMOGLOBIN CONCENTRATION (G/DL) BY AUTOMATED 31.9 g/dL Low 32.0-35.0 [facility] Comment on above: Performed By: #### L [id number] ####[facility] (BEAKER)[address] [place] [address] Hematocrit (Bld) [Volume fraction] 38.3 % Low 39.0-55.0 [facility] Comment on above: Performed By: #### L [id number] ####[facility] (BEAKER)[address] [place] [address] Hemoglobin (Bld) [Mass/Vol] 12.2 g/dL Low 13.0-17.0 [facility] Comment on above: Performed By: #### L [id number] ####[facility] ([facility])[address] [place] [address] MCH (RBC) [Entitic mass] 31.9 pg Normal 27.0-33.0 [facility] Comment on above: Performed By: #### L [id number] ####[facility] ([facility])[address] [place] [address] MCV (RBC) [Entitic vol] 100.3 fL High 82.0-98.0 [facility] Comment on above: Performed By: #### L [id number] ####[facility] ([facility])[address] [place] [address] PLATELETS (10*3/UL) IN BLOOD AUTOMATED COUNT 196 10*3/uL Normal 150-400 [facility] Comment on above: Performed By: #### L [id number] ####[facility] ([facility])[address] [place] [address] RBC (Bld) [#/Vol] 3.82 10*6/uL Low 4.20-5.70 [facility] Comment on above: Performed By: #### L [id number] ####[facility] ([facility])[address] [place] [address] WBC (Bld) [#/Vol] 7.67 10*3/uL Normal 4.00-10.60 [facility] Comment on above: Performed By: #### L [id number] ####[facility] ([facility])[address] [place] [address] CONSULTon 03-06-2024 CONSULT Normal [facility] DSon 03-06-2024 DS Normal [facility] NURSNOTEon 03-06-2024 NURSNOTE This RN called and gave report to Receiving nurse at [place]. Nurse denied further questions. Report given to Transport bedside. Transport has discharge packet. Normal [facility] PRO-BNPon 03-06-2024 Natriuretic peptide B (Bld) [Mass/Vol] 800 pg/mL High 0-300 [facility] Comment on above: Result Comment: An a ge-independent cutoff point of 300 pg/ml has a 98% negative predictive value excluding acute heart failure.Test Performed by [employer] [address] [place] [address] - Released 03/06/2024 15:37 Performed By: #### L [id number] ####[employer] [id number] [place] [address] 30on 03-05-2024 30 Normal [facility] 30 Normal [facility] 30 Normal [facility] BASIC METABOLIC PANELon 02-13 Anion gap [Moles/Vol] 9 mmol/L Normal 7-20 [facility] Comment on above: Performed By: #### L [id number] ####[facility] ([facility]ER)[address] [place] [address] Calcium [Mass/Vol] 8.4 mg/dL Low 8.6-10.3 [facility] Comment on above: Performed By: #### L [id number] ####[facility] ([facility]ER)[address] [place] [address] Chloride [Moles/Vol] 104 mmol/L Normal 98-107 [facility] Comment on above: Performed By: #### L [id number] ####[facility] ([facility]ER)[address] [place] [address] CO2 [Moles/Vol] 33 mmol/L High 21-31 [facility] Comment on above: Performed By: #### L [id number] ####[facility] ([facility])[address] [place] [facility] [place] [address] Creatinine [Mass/Vol] 1.02 mg/dL Normal 0.70-1.30 [facility] Comment on above: Performed By: #### L [id number] ####[facility] ([facility]ER)[address] [place] [address] GLOMERULAR FILTRATION RATE ML/MIN/1.73 SQ M.PREDICTED 75.2 mL/min/1.73m*2 Normal >60.0 [facility] Comment on above: Result Comment: The [facility]???s estimated glomerular filtration rate (eGFR) will no [...] of individuals. Performed By: #### L [id number] ####[facility] ([facility])[address] [facility] [place] [address] Glucose [Mass/Vol] 88 mg/dL Normal 70-100 [facility] Comment on above: Performed By: #### L [id number] ####[facility] ([facility])[address] [facility] [place] [address] Potassium [Moles/Vol] 3.8 mmol/L Normal 3.5-5.1 [facility] Comment on above: Performed By: #### L [id number] ####[facility] ([facility])[address] [facility] [place] [address] Sodium [Moles/Vol] 142 mmol/L Normal 136-145 [facility] Comment on above: Performed By: #### L [id number] ####[facility] ([facility])[address] [facility] [place] [address] Urea nitrogen [Mass/Vol] 25 mg/dL Normal 7-25 [facility] Comment on above: Performed By: #### L [id number] ####[facility] ([facility])[address] [facility] [place] [address] UREA NITROGEN/CREATININE (MASS RATIO) IN SER/PLAS 24.5 Normal [facility] Comment on above: Performed By: #### L [id number] ####[facility] ([facility])[address] [place] [address] CBC WITH AUTO DIFFERENTIALon 03-05-2024 Basophils (Bld) [#/Vol] 0.01 10*3/uL Normal 0.00-0.20 [facility] Comment on above: Performed By: #### L [id number] ####[facility] (BEAKER)[address] [place] [address] Basophils/100 WBC (Bld) 0.1 % Normal 0.0-1.0 [facility] Comment on above: Performed By: #### L [id number] ####[facility] (BEAKER)[address] [place] [address] Eosinophils (Bld) [#/Vol] 0.08 10*3/uL Normal 0.00-0.50 [facility] Comment on above: Performed By: #### L [id number] ####[facility] (BEAKER)[address] [place] [address] Eosinophils/100 WBC (Bld) 1.0 % Normal 0.0-6.0 [facility] Comment on above: Performed By: #### L [id number] ####[facility] (BEAKER)[address] [place] [address] Erythrocyte distribution width (RBC) [Ratio] 13.2 % Normal 11.5-15.0 [facility] Comment on above: Performed By: #### L [id number] ####[facility] (BEAKER)[address] [place] [address] ERYTHROCYTE MEAN CORPUSCULAR HEMOGLOBIN CONCENTRATION (G/DL) BY AUTOMATED 32.3 g/dL Normal 32.0-35.0 [facility] Comment on above: Performed By: #### L [id number] ####[facility] (BEAKER)[address] [place] [address] Hematocrit (Bld) [Volume fraction] 37.5 % Low 39.0-55.0 [facility] Comment on above: Performed By: #### L [id number] ####[facility] (BEAKER)[address] [place] [address] Hemoglobin (Bld) [Mass/Vol] 12.1 g/dL Low 13.0-17.0 [facility] Comment on above: Performed By: #### L [id number] ####[facility] (BEAKER)[address] [place] [address] Immature granulocytes (Bld) [#/Vol] 0.09 10*3/uL Normal 0.00-0.20 [facility] Comment on above: Performed By: #### L [id number] ####[facility] (BEAKER)[address] [place] [address] Immature granulocytes/100 WBC (Bld) 1.1 % High 0.0-1.0 [facility] Comment on above: Performed By: #### L [id number] ####[facility] (BEAKER)[address] [place] [address] Lymphocytes (Bld) [#/Vol] 1.27 10*3/uL Normal 1.20-4.00 [facility] Comment on above: Performed By: #### L [id number] ####[facility] (BEAKER)[address] [place] [address] Lymphocytes/100 WBC (Bld) 15.4 % Low 20.0-45.0 [facility] Comment on above: Performed By: #### L [id number] ####[facility] (BEAKER)[address] [place] [address] MCH (RBC) [Entitic mass] 31.6 pg Normal 27.0-33.0 [facility] Comment on above: Performed By: #### L [id number] ####[facility] (BEAKER)[address] [place] [address] MCV (RBC) [Entitic vol] 97.9 fL Normal 82.0-98.0 [facility] Comment on above: Performed By: #### L [id number] ####[facility] ([facility]AKER)[address] [place] [address] Monocytes (Bld) [#/Vol] 0.65 10*3/uL Normal 0.10-1.00 [facility] Comment on above: Performed By: #### L [id number] ####[facility] ([facility])[address] [place] [address] Monocytes/100 WBC (Bld) 7.9 % Normal 5.0-12.0 [facility] Comment on above: Performed By: #### L [id number] ####[facility] ([facility])[address] [place] [address] Neutrophils (Bld) [#/Vol] 6.14 10*3/uL Normal 1.60-7.60 [facility] Comment on above: Performed By: #### L [id number] ####[facility] ([facility])[address] [place] [address] Neutrophils/100 WBC (Bld) 74.5 % High 40.0-72.0 [facility] Comment on above: Performed By: #### L [id number] ####[facility] ([facility])[address] [place] [address] NRBC (PER 100 WBCS) BY AUTOMATED COUNT 0.0 % Normal 0 [facility] Comment on above: Performed By: #### L [id number] ####[facility] ([facility])[address] [place] [address] PLATELETS (10*3/UL) IN BLOOD AUTOMATED COUNT 190 10*3/uL Normal 150-400 [facility] Comment on above: Performed By: #### L [id number] ####[facility] ([facility] [place] [address] RBC (Bld) [#/Vol] 3.83 10*6/uL Low 4.20-5.70 [facility] Comment on above: Performed By: #### L [id number] ####[facility] ([facility])[address] [place] [address] WBC (Bld) [#/Vol] 8.24 10*3/uL Normal 4.00-10.60 [facility] Comment on above: Performed By: #### L [id number] ####[facility] ([facility])[address] [place] [address] MAGNESIUMon 03-05-2024 Magnesium [Mass/Vol] 1.8 mg/dL Low 1.9-2.7 [facility] Comment on above: Performed By: #### L [id number] ####[facility] ([facility])[address] [place] [address] PHOSPHORUSon 03-05-2024 Magnesium [Mass/Vol] 3.8 mg/dL Normal 2.5-5.0 [facility] Comment on above: Performed By: #### L [id number] ####[facility] ([facility])[address] [place] [address] 30on 03-04-2024 30 Normal [facility] 30 The patient is Moderately Stable - Low risk of patient condition declining or worsening The patient's goals for the shift include Rest The clinical goals for the shift include VSS, safety, rest Normal [facility] ANESon 03-04-2024 ANES Normal [facility] APTTon 03-04-2024 ACTIVATED PARTIAL THROMBOPLASTIN TIME IN PPP BY COAGULATION ASSAY 110.7 Seconds High 25.0-35.0 [facility] Comment on above: Result Comment: Clin ical significance of the APTT is questionable in the presence of heparin. Performed By: #### L [id number] ####[facility] ([facility])[address] [place] [address] ACTIVATED PARTIAL THROMBOPLASTIN TIME IN PPP BY COAGULATION ASSAY 135.9 Seconds Critically high 25.0-35.0 [facility] Comment on above: Result Comment: Clin ical significance of the APTT is questionable in the presence of heparin. Performed By: #### L [id number] ####[facility] ([facility])[address] [facility] [address] B-TYPE NATRIURETIC PEPTIDEon 03-04-2024 Natriuretic peptide B (Bld) [Mass/Vol] 178 pg/mL High 0-100 [facility] Comment on above: Performed By: #### L [id number] ####[facility] ([facility])[address] [place] [address] BASIC METABOLIC PANELon 10-2 Anion gap [Moles/Vol] 11 mmol/L Normal 7-20 [facility] Comment on above: Performed By: #### L [id number] ####[facility] ([facility])[address] [place] [address] Calcium [Mass/Vol] 8.5 mg/dL Low 8.6-10.3 [facility] Comment on above: Performed By: #### L [id number] ####[facility] ([facility])[address] [place] [address] Chloride [Moles/Vol] 104 mmol/L Normal 98-107 [facility] Comment on above: Performed By: #### L [id number] ####[facility] ([facility])[address] [place] [address] CO2 [Moles/Vol] 29 mmol/L Normal 21-31 [facility] Comment on above: Performed By: #### L [id number] ####[facility] ([facility])[address] [place] [address] Creatinine [Mass/Vol] 0.94 mg/dL Normal 0.70-1.30 [facility] Comment on above: Performed By: #### L [id number] ####[facility] ([facility])[address] [place] [address] GLOMERULAR FILTRATION RATE ML/MIN/1.73 SQ M.PREDICTED 83.0 mL/min/1.73m*2 Normal >60.0 [facility] Comment on above: Result Comment: The [facility]???s estimated glomerular filtration rate (eGFR) will no [...] of individuals. Performed By: #### L [id number] ####[facility] ([facility])[address] [place] [address] Glucose [Mass/Vol] 108 mg/dL High 70-100 [facility] Comment on above: Performed By: #### L [id number] ####[facility] ([facility])[address] [place] [address] Potassium [Moles/Vol] 3.8 mmol/L Normal 3.5-5.1 [facility] Comment on above: Performed By: #### L [id number] ####[facility] ([facility])[address] [place] [address] Sodium [Moles/Vol] 140 mmol/L Normal 136-145 [facility] Comment on above: Performed By: #### L [id number] ####[facility] ([facility])[address] [facility] [address] Urea nitrogen [Mass/Vol] 29 mg/dL High 7-25 [facility] Comment on above: Performed By: #### L [id number] ####[facility] ([facility])[address] [place] [address] UREA NITROGEN/CREATININE (MASS RATIO) IN SER/PLAS 30.9 Normal [facility] Comment on above: Performed By: #### L [id number] ####[facility] ([facility])[address] [place] [address] CBC WITH AUTO DIFFERENTIALon 03-04-2024 Basophils (Bld) [#/Vol] 0.02 10*3/uL Normal 0.00-0.20 [facility] Comment on above: Performed By: #### L [id number] ####[facility] ([facility])[address] [place] [address] Basophils/100 WBC (Bld) 0.2 % Normal 0.0-1.0 [facility] Comment on above: Performed By: #### L [id number] ####[facility] ([facility])[address] [place] [address] Eosinophils (Bld) [#/Vol] 0.00 10*3/uL Normal 0.00-0.50 [facility] Comment on above: Performed By: #### L [id number] ####[facility] ([facility])[address] [place] [address] Eosinophils/100 WBC (Bld) 0.0 % Normal 0.0-6.0 [facility] Comment on above: Performed By: #### L [id number] ####[facility] ([facility])[address] [place] [address] Erythrocyte distribution width (RBC) [Ratio] 13.2 % Normal 11.5-15.0 [facility] Comment on above: Performed By: #### L [id number] ####[facility] ([facility])[address] [place] [address] ERYTHROCYTE MEAN CORPUSCULAR HEMOGLOBIN CONCENTRATION (G/DL) BY AUTOMATED 31.5 g/dL Low 32.0-35.0 [facility] Comment on above: Performed By: #### L [id number] ####[facility] ([facility])[address] [place] [address] Hematocrit (Bld) [Volume fraction] 38.7 % Low 39.0-55.0 [facility] Comment on above: Performed By: #### L [id number] ####[facility] ([facility])[address] [place] [address] Hemoglobin (Bld) [Mass/Vol] 12.2 g/dL Low 13.0-17.0 [facility] Comment on above: Performed By: #### L [id number] ####[facility] ([facility])[address] [place] [address] Immature granulocytes (Bld) [#/Vol] 0.12 10*3/uL Normal 0.00-0.20 [facility] Comment on above: Performed By: #### L [id number] ####[facility] ([facility])[address] [place] [address] Immature granulocytes/100 WBC (Bld) 1.2 % High 0.0-1.0 [facility] Comment on above: Performed By: #### L [id number] ####[facility] ([facility])[address] [place] [address] Lymphocytes (Bld) [#/Vol] 1.13 10*3/uL Low 1.20-4.00 [facility] Comment on above: Performed By: #### L [id number] ####[facility] ([facility])[address] [place] [address] Lymphocytes/100 WBC (Bld) 11.3 % Low 20.0-45.0 [facility] Comment on above: Performed By: #### L [id number] ####[facility] ([facility])[address] [place] [address] MCH (RBC) [Entitic mass] 31.7 pg Normal 27.0-33.0 [facility] Comment on above: Performed By: #### L [id number] ####[facility] ([facility])[address] [place] [address] MCV (RBC) [Entitic vol] 100.5 fL High 82.0-98.0 [facility] Comment on above: Performed By: #### L [id number] ####[facility] ([facility])[address] [place] [address] Monocytes (Bld) [#/Vol] 0.87 10*3/uL Normal 0.10-1.00 [facility] Comment on above: Performed By: #### L [id number] ####[facility] ([facility])[address] [place] [address] Monocytes/100 WBC (Bld) 8.7 % Normal 5.0-12.0 [facility] Comment on above: Performed By: #### L [id number] ####[facility] ([facility])[address] [place] [address] Neutrophils (Bld) [#/Vol] 7.88 10*3/uL High 1.60-7.60 [facility] Comment on above: Performed By: #### L [id number] ####[facility] ([facility])[address] [place] [address] Neutrophils/100 WBC (Bld) 78.6 % High 40.0-72.0 [facility] Comment on above: Performed By: #### L [id number] ####[facility] ([facility])[address] [place] [address] NRBC (PER 100 WBCS) BY AUTOMATED COUNT 0.0 % Normal 0 [facility] Comment on above: Performed By: #### L [id number] ####[facility] ([facility])[address] [place] [address] PLATELETS (10*3/UL) IN BLOOD AUTOMATED COUNT 182 10*3/uL Normal 150-400 [facility] Comment on above: Performed By: #### L [id number] ####[facility] ([facility])[address] [place] [address] RBC (Bld) [#/Vol] 3.85 10*6/uL Low 4.20-5.70 [facility] Comment on above: Performed By: #### L [id number] ####[facility] ([facility])[address] [place] [address] WBC (Bld) [#/Vol] 10.02 10*3/uL Normal 4.00-10.60 [facility] Comment on above: Performed By: #### L [id number] ####[facility] ([facility])[address] [place] [address] CONSULTon 03-04-2024 CONSULT Normal [facility] HPon 03-04-2024 HP Normal [facility] MAGNESIUMon 03-04-2024 Magnesium [Mass/Vol] 1.8 mg/dL Low 1.9-2.7 [facility] Comment on above: Performed By: #### L [id number] ####[facility] ([facility])[address] [place] [address] PHOSPHORUSon 03-04-2024 Magnesium [Mass/Vol] 3.1 mg/dL Normal 2.5-5.0 [facility] Comment on above: Performed By: #### L [id number] ####[facility] ([facility])[address] [place] [address] 30on 03-03-2024 30 Normal [facility] 30 Normal [facility] 30 Normal [facility] 30 Normal [facility] APTTon 03-03-2024 ACTIVATED PARTIAL THROMBOPLASTIN TIME IN PPP BY COAGULATION ASSAY 147.8 Seconds Critically high 25.0-35.0 [facility] Comment on above: Result Comment: Clin ical significance of the APTT is questionable in the presence of heparin. Performed By: #### L [id number] ####[facility] ([facility])[address] [place] [address] ACTIVATED PARTIAL THROMBOPLASTIN TIME IN PPP BY COAGULATION ASSAY 124.5 Seconds High 25.0-35.0 [facility] Comment on above: Result Comment: Clin ical significance of the APTT is questionable in the presence of heparin. Performed By: #### L [id number] ####[facility] ([facility])[address] [place] [address] ACTIVATED PARTIAL THROMBOPLASTIN TIME IN PPP BY COAGULATION ASSAY 169.5 Seconds Critically high 25.0-35.0 [facility] Comment on above: Order Comment: Check aPTT every 6 hours while on heparin infusion, or per protocol. Result Comment: Clin ical significance of the APTT is questionable in the presence of heparin. Performed By: #### L [id number] ####[facility] ([facility])[address] [place] [address] BASIC METABOLIC PANELon 02-13 Anion gap [Moles/Vol] 9 mmol/L Normal -20 [facility] Comment on above: Performed By: #### L [id number] ####[facility] ([facility])[address] [place] [address] Calcium [Mass/Vol] 8.2 mg/dL Low 8.6-10.3 [facility] Comment on above: Performed By: #### L [id number] ####[facility] ([facility])[address] [place] [address] Chloride [Moles/Vol] 103 mmol/L Normal 98-107 [facility] Comment on above: Performed By: #### L [id number] ####[facility] ([facility])[address] [place] [address] CO2 [Moles/Vol] 32 mmol/L High 21-31 [facility] Comment on above: Performed By: #### L [id number] ####[facility] ([facility])[address] [place] [address] Creatinine [Mass/Vol] 0.93 mg/dL Normal 0.70-1.30 [facility] Comment on above: Performed By: #### L [id number] ####[facility] ([facility])[address] [address] GLOMERULAR FILTRATION RATE ML/MIN/1.73 SQ M.PREDICTED 84.0 mL/min/1.73m*2 Normal >60.0 [facility] Comment on above: Result Comment: The [facility]???s estimated glomerular filtration rate (eGFR) will no [...] of individuals. Performed By: #### L [id number] ####[facility] ([facility])[address] [place] [address] Glucose [Mass/Vol] 110 mg/dL High 70-100 [facility] Comment on above: Performed By: #### L [id number] ####[facility] ([facility])[address] [place] [address] Potassium [Moles/Vol] 3.3 mmol/L Low 3.5-5.1 [facility] Comment on above: Performed By: #### L [id number] ####[facility] ([facility])[address] [place] [address] Sodium [Moles/Vol] 141 mmol/L Normal 136-145 [facility] Comment on above: Performed By: #### L [id number] ####[facility] ([facility])[address] [place] [address] Urea nitrogen [Mass/Vol] 27 mg/dL High 7-25 [facility] Comment on above: Performed By: #### L [id number] ####[facility] ([facility])[address] [place] [address] UREA NITROGEN/CREATININE (MASS RATIO) IN SER/PLAS 29.0 Normal [facility] Comment on above: Performed By: #### L [id number] ####[facility] ([facility])[address] [place] [address] CBC WITH AUTO DIFFERENTIALon 03-03-2024 Basophils (Bld) [#/Vol] 0.01 10*3/uL Normal 0.00-0.20 [facility] Comment on above: Performed By: #### L [id number] ####[facility] ([facility])[address] [place] [address] Basophils/100 WBC (Bld) 0.1 % Normal 0.0-1.0 [facility] Comment on above: Performed By: #### L [id number] ####[facility] ([facility])[address] [place] [address] Eosinophils (Bld) [#/Vol] 0.00 10*3/uL Normal 0.00-0.50 [facility] Comment on above: Performed By: #### L [id number] ####[facility] ([facility])[address] [place] [address] Eosinophils/100 WBC (Bld) 0.0 % Normal 0.0-6.0 [facility] Comment on above: Performed By: #### L [id number] ####[facility] ([facility])[address] [place] [address] Erythrocyte distribution width (RBC) [Ratio] 13.2 % Normal 11.5-15.0 [facility] Comment on above: Performed By: #### L [id number] ####[facility] ([facility])[address] [place] [address] ERYTHROCYTE MEAN CORPUSCULAR HEMOGLOBIN CONCENTRATION (G/DL) BY AUTOMATED 32.1 g/dL Normal 32.0-35.0 [facility] Comment on above: Performed By: #### L [id number] ####[facility] ([facility])[address] [place] [address] Hematocrit (Bld) [Volume fraction] 38.0 % Low 39.0-55.0 [facility] Comment on above: Performed By: #### L [id number] ####[facility] ([facility])[address] [place] [address] Hemoglobin (Bld) [Mass/Vol] 12.2 g/dL Low 13.0-17.0 [facility] Comment on above: Performed By: #### L [id number] ####[facility] ([facility])[address] [place] [address] Immature granulocytes (Bld) [#/Vol] 0.07 10*3/uL Normal 0.00-0.20 [facility] Comment on above: Performed By: #### L [id number] ####[facility] ([facility])[address] [place] [address] Immature granulocytes/100 WBC (Bld) 0.7 % Normal 0.0-1.0 [facility] Comment on above: Performed By: #### L [id number] ####[facility] ([facility])[address] [place] [address] Lymphocytes (Bld) [#/Vol] 1.03 10*3/uL Low 1.20-4.00 [facility] Comment on above: Performed By: #### L [id number] ####[facility] ([facility])[address] [place] [address] Lymphocytes/100 WBC (Bld) 10.2 % Low 20.0-45.0 [facility] Comment on above: Performed By: #### L [id number] ####[facility] ([facility])[address] [place] [address] MCH (RBC) [Entitic mass] 31.4 pg Normal 27.0-33.0 [facility] Comment on above: Performed By: #### L [id number] ####[facility] ([facility])[address] [place] [address] MCV (RBC) [Entitic vol] 97.7 fL Normal 82.0-98.0 [facility] Comment on above: Performed By: #### L [id number] ####[facility] ([facility])[address] [place] [address] Monocytes (Bld) [#/Vol] 1.01 10*3/uL High 0.10-1.00 [facility] Comment on above: Performed By: #### L [id number] ####[facility] ([facility])[address] [place] [address] Monocytes/100 WBC (Bld) 10.0 % Normal 5.0-12.0 [facility] Comment on above: Performed By: #### L [id number] ####[facility] ([facility])[address] [place] [address] Neutrophils (Bld) [#/Vol] 8.01 10*3/uL High 1.60-7.60 [facility] Comment on above: Performed By: #### L [id number] ####[facility] ([facility])[address] [place] [address] Neutrophils/100 WBC (Bld) 79.0 % High 40.0-72.0 [facility] Comment on above: Performed By: #### L [id number] ####[facility] ([facility])[address] [place] [address] NRBC (PER 100 WBCS) BY AUTOMATED COUNT 0.0 % Normal 0 [facility] Comment on above: Performed By: #### L [id number] ####[facility] ([facility])[address] [place] [address] PLATELETS (10*3/UL) IN BLOOD AUTOMATED COUNT 164 10*3/uL Normal 150-400 [facility] Comment on above: Performed By: #### L [id number] ####[facility] ([facility])[address] [place] [address] RBC (Bld) [#/Vol] 3.89 10*6/uL Low 4.20-5.70 [facility] Comment on above: Performed By: #### L [id number] ####[facility] ([facility])[address] [place] [address] WBC (Bld) [#/Vol] 10.13 10*3/uL Normal 4.00-10.60 [facility] Comment on above: Performed By: #### L [id number] ####[facility] ([facility])[address] [place] [address] CLOSTRIDIOIDES DIFFICILE DNA AMPLIFICATIONon 03-03-2024 CLOSTRIDIOIDES DIFFICILE (TOXIN A/B) Negative Normal Negative [facility] Comment on above: Order Comment: Testi ng methodology is an in vitro diagnostic test for the direct, qualitative detection of the Clostridioides difficile Toxin A gene (tcdA) in unformed stool specimens of patients suspected of having Clostridioides difficile-infection (CDI). The [employer] C. difficile Assay is intended for use [...] suspected of having Clostridioides difficile-infection (CDI). The Dante C. difficile Assay is intended for use as an aid in diagnosis of CDI. The assay utilizes helicase-dependent amplification (HDA) for the amplification of a highly conserved fragment of the Toxin A gene sequence. Performed By: #### L [id number] ####[facility] ([facility])[address] [place] [address] MAGNESIUMon 03-03-2024 Magnesium [Mass/Vol] 1.9 mg/dL Normal 1.9-2.7 [facility] Comment on above: Performed By: #### L [id number] ####[facility] ([facility])[address] [place] [address] NURSNOTEon 03-03-2024 NURSNOTE Normal [facility] NURSNOTE Normal [facility] PHOSPHORUSon 03-03-2024 Magnesium [Mass/Vol] 2.7 mg/dL Normal 2.5-5.0 [facility] Comment on above: Performed By: #### L [id number] ####[facility] ([facility])[address] [place] [address] 30on 03-02-2024 30 The patient is Moderately Stable - Low risk of patient condition declining or worsening The patient's goals for the shift include Comfort The clinical goals for the shift include VSS, safety Normal [facility] APTTon 03-02-2024 ACTIVATED PARTIAL THROMBOPLASTIN TIME IN PPP BY COAGULATION ASSAY 127.4 Seconds High 25.0-35.0 [facility] Comment on above: Order Comment: Check aPTT every 6 hours while on heparin infusion, or per protocol. Result Comment: Clin ical significance of the APTT is questionable in the presence of heparin. Performed By: #### L [id number] ####[facility] ([facility])[address] [place] [address] ACTIVATED PARTIAL THROMBOPLASTIN TIME IN PPP BY COAGULATION ASSAY 106.1 Seconds High 25.0-35.0 [facility] Comment on above: Order Comment: Check aPTT every 6 hours while on heparin infusion, or per protocol. Result Comment: Clin ical significance of the APTT is questionable in the presence of heparin. Performed By: #### L [id number] ####[facility] ([facility])[address] [place] [address] BASIC METABOLIC PANELon - Anion gap [Moles/Vol] 10 mmol/L Normal 7-20 [facility] Comment on above: Performed By: #### L [id number] ####[facility] ([facility])[address] [place] [address] Calcium [Mass/Vol] 8.1 mg/dL Low 8.6-10.3 [facility] Comment on above: Performed By: #### L [id number] ####[facility] ([facility])[address] [place] [address] Chloride [Moles/Vol] 104 mmol/L Normal 98-107 [facility] Comment on above: Performed By: #### L [id number] ####[facility] ([facility])[address] [place] [address] CO2 [Moles/Vol] 30 mmol/L Normal 21-31 [facility] Comment on above: Performed By: #### L [id number] ####[facility] ([facility])[address] [place] [address] Creatinine [Mass/Vol] 0.97 mg/dL Normal 0.70-1.30 [facility] Comment on above: Performed By: #### L [id number] ####[facility] ([facility])[address] [place] [address] GLOMERULAR FILTRATION RATE ML/MIN/1.73 SQ M.PREDICTED 79.9 mL/min/1.73m*2 Normal >60.0 [facility] Comment on above: Result Comment: The [facility]???s estimated glomerular filtration rate (eGFR) will no [...] of individuals. Performed By: #### L [id number] ####[facility] ([facility])[address] [place] [address] Glucose [Mass/Vol] 136 mg/dL High 70-100 [facility] Comment on above: Performed By: #### L [id number] ####[facility] ([facility])[address] [place] [address] Potassium [Moles/Vol] 3.0 mmol/L Low 3.5-5.1 [facility] Comment on above: Performed By: #### L [id number] ####[facility] ([facility])[address] [place] [address] Sodium [Moles/Vol] 141 mmol/L Normal 136-145 [facility] Comment on above: Performed By: #### L [id number] ####[facility] ([facility])[address] [place] [address] Urea nitrogen [Mass/Vol] 37 mg/dL High 7-25 [facility] Comment on above: Performed By: #### L [id number] ####[facility] ([facility])[address] [place] [address] UREA NITROGEN/CREATININE (MASS RATIO) IN SER/PLAS 38.1 Normal [facility] Comment on above: Performed By: #### L [id number] ####[facility] ([facility])[address] [place] [address] CBC WITH AUTO DIFFERENTIALon 03-02-2024 Basophils (Bld) [#/Vol] 0.01 10*3/uL Normal 0.00-0.20 [facility] Comment on above: Performed By: #### L [id number] ####[facility] ([facility])[address] [place] [address] Basophils/100 WBC (Bld) 0.1 % Normal 0.0-1.0 [facility] Comment on above: Performed By: #### L [id number] ####[facility] ([facility])[address] [place] [address] Eosinophils (Bld) [#/Vol] 0.00 10*3/uL Normal 0.00-0.50 [facility] Comment on above: Performed By: #### L [id number] ####[facility] ([facility])[address] [place] [address] Eosinophils/100 WBC (Bld) 0.0 % Normal 0.0-6.0 [facility] Comment on above: Performed By: #### L [id number] ####[facility] ([facility])[address] [place] [address] Erythrocyte distribution width (RBC) [Ratio] 12.9 % Normal 11.5-15.0 [facility] Comment on above: Performed By: #### L [id number] ####[facility] (BEAKER)[address] [place] [address] ERYTHROCYTE MEAN CORPUSCULAR HEMOGLOBIN CONCENTRATION (G/DL) BY AUTOMATED 32.3 g/dL Normal 32.0-35.0 [facility] Comment on above: Performed By: #### L [id number] ####[facility] (BEAKER)[address] [place] [address] Hematocrit (Bld) [Volume fraction] 36.8 % Low 39.0-55.0 [facility] Comment on above: Performed By: #### L [id number] ####[facility] (BEAKER)[address] [place] [address] Hemoglobin (Bld) [Mass/Vol] 11.9 g/dL Low 13.0-17.0 [facility] Comment on above: Performed By: #### L [id number] ####[facility] (BEAKER)[address] [place] [address] Immature granulocytes (Bld) [#/Vol] 0.05 10*3/uL Normal 0.00-0.20 [facility] Comment on above: Performed By: #### L [id number] ####[facility] (BEAKER)[address] [place] [address] Immature granulocytes/100 WBC (Bld) 0.7 % Normal 0.0-1.0 [facility] Comment on above: Performed By: #### L [id number] ####[facility] ([facility])[address] [place] [address] Lymphocytes (Bld) [#/Vol] 0.58 10*3/uL Low 1.20-4.00 [facility] Comment on above: Performed By: #### L [id number] ####[facility] ([facility])[address] [place] [address] Lymphocytes/100 WBC (Bld) 7.8 % Low 20.0-45.0 [facility] Comment on above: Performed By: #### L [id number] ####[facility] ([facility])[address] [place] [address] MCH (RBC) [Entitic mass] 32.1 pg Normal 27.0-33.0 [facility] Comment on above: Performed By: #### L [id number] ####[facility] ([facility])[address] [place] [address] MCV (RBC) [Entitic vol] 99.2 fL High 82.0-98.0 [facility] Comment on above: Performed By: #### L [id number] ####[facility] (BEAKER)[address] [place] [address] Monocytes (Bld) [#/Vol] 0.56 10*3/uL Normal 0.10-1.00 [facility] Comment on above: Performed By: #### L [id number] ####[facility] (BEAKER)[address] [place] [address] Monocytes/100 WBC (Bld) 7.5 % Normal 5.0-12.0 [facility] Comment on above: Performed By: #### L [id number] ####[facility] (BEAKER)[address] [place] [address] Neutrophils (Bld) [#/Vol] 6.28 10*3/uL Normal 1.60-7.60 [facility] Comment on above: Performed By: #### L [id number] ####[facility] ([facility])[address] [place] [address] Neutrophils/100 WBC (Bld) 83.9 % High 40.0-72.0 [facility] Comment on above: Performed By: #### L [id number] ####[facility] ([facility])[address] [place] [address] NRBC (PER 100 WBCS) BY AUTOMATED COUNT 0.0 % Normal 0 [facility] Comment on above: Performed By: #### L [id number] ####[facility] ([facility])[address] [place] [address] PLATELETS (10*3/UL) IN BLOOD AUTOMATED COUNT 159 10*3/uL Normal 150-400 [facility] Comment on above: Performed By: #### L [id number] ####[facility] ([facility])[address] [place] [address] RBC (Bld) [#/Vol] 3.71 10*6/uL Low 4.20-5.70 [facility] Comment on above: Performed By: #### L [id number] ####[facility] ([facility])[address] [place] [address] WBC (Bld) [#/Vol] 7.48 10*3/uL Normal 4.00-10.60 [facility] Comment on above: Performed By: #### L [id number] ####[facility] ([facility])[address] [place] [address] MAGNESIUMon 03-02-2024 Magnesium [Mass/Vol] 1.9 mg/dL Normal 1.9-2.7 [facility] Comment on above: Performed By: #### L [id number] ####[facility] ([facility])[address] [place] [address] NURSNOTEon 03-02-2024 NURSNOTE Normal [facility] PHOSPHORUSon 03-02-2024 Magnesium [Mass/Vol] 3.4 mg/dL Normal 2.5-5.0 [facility] Comment on above: Performed By: #### L [id number] ####[facility] (BEAKER)[address] [place] [address] VENOUS BLOOD GAS WITH IONIZE D CALCIUMon 03-02-2024 Base excess Calc (BldV) [Moles/Vol] 4.3 mmol/L Normal [facility] Comment on above: Performed By: #### L [id number] ####[facility]PIRAT[facility] [id number] [place] [address] [facility] CALCIUM IONIZED (MMOL/L) IN BLOOD 1.19 mmol/L Normal 1.15-1.33 [facility] Comment on above: Performed By: #### L [id number] ####[facility] RESPIRATORY [id number] [place] [address] [place] CO2 (BldV) [Partial pressure] 47 mm[Hg] Normal 40-50 [facility] Comment on above: Performed By: #### L [id number] ####[facility] RESPIRATORY [id number] [place] [address] [place] HCO3 (Bld) [Moles/Vol] 29.8 mmol/L Normal [facility] Comment on above: Performed By: #### L [id number] ####[facility] RESPIRATORY [id number] [place] [address] [place] Oxygen (BldV) [Partial pressure] 46 mm[Hg] High 35-45 [facility] Comment on above: Performed By: #### L [id number] ####[facility] RESPIRATORY [id number] [place] [address] [place] OXYGEN SATURATION (%) IN VENOUS BLOOD 76.1 % High 65.0-75.0 [facility] Comment on above: Performed By: #### L [id number] ####[facility] RESPIRATORY [id number] [place] [address] [place] PH OF VENOUS BLOOD 7.41 Normal 7.31-7.41 [facility] Comment on above: Performed By: #### L [id number] ####[facility] RESPIRATORY [id number] [place] [address] [place] 30on 03-01-2024 30 Normal [facility] BASIC METABOLIC PANELon 02-12 Anion gap [Moles/Vol] 10 mmol/L Normal 7-20 [facility] Comment on above: Performed By: #### L [id number] ####[facility] (BEAKER)[address] [place] [address] Calcium [Mass/Vol] 8.3 mg/dL Low 8.6-10.3 [facility] Comment on above: Performed By: #### L [id number] ####[facility] (BEAKER)[address] [place] [address] Chloride [Moles/Vol] 104 mmol/L Normal 98-107 [facility] Comment on above: Performed By: #### L [id number] ####[facility] (BEAKER)[address] [place] [address] CO2 [Moles/Vol] 29 mmol/L Normal 21-31 [facility] Comment on above: Performed By: #### L [id number] ####[facility] (BEAKER)[address] [place] [address] Creatinine [Mass/Vol] 0.99 mg/dL Normal 0.70-1.30 [facility] Comment on above: Performed By: #### L [id number] ####[facility] (BEAKER)[address] [place] [address] GLOMERULAR FILTRATION RATE ML/MIN/1.73 SQ M.PREDICTED 78.0 mL/min/1.73m*2 Normal >60.0 [facility] Comment on above: Result Comment: The [facility]???s estimated glomerular filtration rate (eGFR) will no [...] of individuals. Performed By: #### L [id number] ####[facility] ([facility])[address] [place] [address] Glucose [Mass/Vol] 156 mg/dL High 70-100 [facility] Comment on above: Performed By: #### L [id number] ####[facility] ([facility])[address] [place] [address] Potassium [Moles/Vol] 3.4 mmol/L Low 3.5-5.1 [facility] Comment on above: Performed By: #### L [id number] ####[facility] ([facility])[address] [place] [address] Sodium [Moles/Vol] 140 mmol/L Normal 136-145 [facility] Comment on above: Performed By: #### L [id number] ####[facility] ([facility])[address] [place] [address] Urea nitrogen [Mass/Vol] 35 mg/dL High 7-25 [facility] Comment on above: Performed By: #### L [id number] ####[facility] ([facility])[address] [place] [address] UREA NITROGEN/CREATININE (MASS RATIO) IN SER/PLAS 35.4 Normal [facility] Comment on above: Performed By: #### L [id number] ####[facility] ([facility])[address] [place] [address] BLOOD CULTUREon 03-01-2024 Bacteria identified Cx Nom (Bld) No growth at 5 days Normal [facility] Comment on above: Performed By: #### L [id number] ####[facility] ([facility])[address] [place] [address] CBC WITH AUTO DIFFERENTIALon 03-01-2024 Basophils (Bld) [#/Vol] 0.01 10*3/uL Normal 0.00-0.20 [facility] Comment on above: Performed By: #### L [id number] ####[facility] (BEAKER)[address] [place] [address] Basophils/100 WBC (Bld) 0.1 % Normal 0.0-1.0 [facility] Comment on above: Performed By: #### L [id number] ####[facility] (BEAKER)[address] [place], [place] [address] Eosinophils (Bld) [#/Vol] 0.00 10*3/uL Normal 0.00-0.50 [facility] Comment on above: Performed By: #### L [id number] ####[facility] (BEAKER)[address] [place], [place] [address] Eosinophils/100 WBC (Bld) 0.0 % Normal 0.0-6.0 [facility] Comment on above: Performed By: #### L [id number] ####[facility] (BEAKER)[address] [place] [address] Erythrocyte distribution width (RBC) [Ratio] 12.9 % Normal 11.5-15.0 [facility] Comment on above: Performed By: #### L [id number] ####[facility] (BEAKER)[address] [place] [address] ERYTHROCYTE MEAN CORPUSCULAR HEMOGLOBIN CONCENTRATION (G/DL) BY AUTOMATED 32.1 g/dL Normal 32.0-35.0 [facility] Comment on above: Performed By: #### L [id number] ####[facility] (BEAKER)[address] [place], [place] [address] Hematocrit (Bld) [Volume fraction] 38.9 % Low 39.0-55.0 [facility] Comment on above: Performed By: #### L [id number] ####[facility] (BEAKER)[address] [place] [address] Hemoglobin (Bld) [Mass/Vol] 12.5 g/dL Low 13.0-17.0 [facility] Comment on above: Performed By: #### L [id number] ####[facility] (BEAKER)[address] [place] [address] Immature granulocytes (Bld) [#/Vol] 0.05 10*3/uL Normal 0.00-0.20 [facility] Comment on above: Performed By: #### L [id number] ####[facility] (BEAKER)[address] [place] [address] Immature granulocytes/100 WBC (Bld) 0.5 % Normal 0.0-1.0 [facility] Comment on above: Performed By: #### L [id number] ####[facility] (BEAKER)[address] [place] [address] Lymphocytes (Bld) [#/Vol] 0.42 10*3/uL Low 1.20-4.00 [facility] Comment on above: Performed By: #### L [id number] ####[facility] (BEAKER)[address] [place] [address] Lymphocytes/100 WBC (Bld) 4.2 % Low 20.0-45.0 [facility] Comment on above: Performed By: #### L [id number] ####[facility] (BEAKER)[address] [place] [address] MCH (RBC) [Entitic mass] 31.9 pg Normal 27.0-33.0 [facility] Comment on above: Performed By: #### L [id number] ####[facility] (BEAKER)[address] [place] [address] MCV (RBC) [Entitic vol] 99.2 fL High 82.0-98.0 [facility] Comment on above: Performed By: #### L [id number] ####[facility] (BEAKER)[address] [place] [address] Monocytes (Bld) [#/Vol] 0.45 10*3/uL Normal 0.10-1.00 [facility] Comment on above: Performed By: #### L [id number] ####[facility] (BEAKER)[address] [place] [address] Monocytes/100 WBC (Bld) 4.5 % Low 5.0-12.0 [facility] Comment on above: Performed By: #### L [id number] ####[facility] ([facility])[address] [place] [address] Neutrophils (Bld) [#/Vol] 9.11 10*3/uL High 1.60-7.60 [facility] Comment on above: Performed By: #### L [id number] ####[facility] ([facility])[address] [place] [address] Neutrophils/100 WBC (Bld) 90.7 % High 40.0-72.0 [facility] Comment on above: Performed By: #### L [id number] ####[facility] ([facility])[address] [place] [address] NRBC (PER 100 WBCS) BY AUTOMATED COUNT 0.0 % Normal 0 [facility] Comment on above: Performed By: #### L [id number] ####[facility] ([facility])[address] [place] [address] PLATELETS (10*3/UL) IN BLOOD AUTOMATED COUNT 165 10*3/uL Normal 150-400 [facility] Comment on above: Performed By: #### L [id number] ####[facility] (BEAKER)[address] [place] [address] RBC (Bld) [#/Vol] 3.92 10*6/uL Low 4.20-5.70 [facility] Comment on above: Performed By: #### L [id number] ####[facility] (BEAKER)[address] [place] [address] WBC (Bld) [#/Vol] 10.04 10*3/uL Normal 4.00-10.60 [facility] Comment on above: Performed By: #### L [id number] ####[facility] (BEAKER)[address] [place] [address] Basophils (Bld) [#/Vol] 0.01 10*3/uL Normal 0.00-0.20 [facility] Comment on above: Performed By: #### L [id number] ####[facility] (BEAKER)[address] [place] [address] Basophils/100 WBC (Bld) 0.1 % Normal 0.0-1.0 [facility] Comment on above: Performed By: #### L [id number] ####[facility] (BEAKER)[address] [place] [address] Eosinophils (Bld) [#/Vol] 0.00 10*3/uL Normal 0.00-0.50 [facility] Comment on above: Performed By: #### L [id number] ####[facility] (BEAKER)[address] [place] [address] Eosinophils/100 WBC (Bld) 0.0 % Normal 0.0-6.0 [facility] Comment on above: Performed By: #### L [id number] ####[facility] ([facility])[address] [place] [address] Erythrocyte distribution width (RBC) [Ratio] 12.8 % Normal 11.5-15.0 [facility] Comment on above: Performed By: #### L [id number] ####[facility] (BEAKER)[address] [place] [address] ERYTHROCYTE MEAN CORPUSCULAR HEMOGLOBIN CONCENTRATION (G/DL) BY AUTOMATED 31.9 g/dL Low 32.0-35.0 [facility] Comment on above: Performed By: #### L [id number] ####[facility] (BEAKER)[address] [place] [address] Hematocrit (Bld) [Volume fraction] 37.9 % Low 39.0-55.0 [facility] Comment on above: Performed By: #### L [id number] ####[facility] (BEAKER)[address] [place] [address] Hemoglobin (Bld) [Mass/Vol] 12.1 g/dL Low 13.0-17.0 [facility] Comment on above: Performed By: #### L [id number] ####[facility] (BEAKER)[address] [place] [address] Immature granulocytes (Bld) [#/Vol] 0.05 10*3/uL Normal 0.00-0.20 [facility] Comment on above: Performed By: #### L [id number] ####[facility] (BEAKER)[address] [place] [address] Immature granulocytes/100 WBC (Bld) 0.7 % Normal 0.0-1.0 [facility] Comment on above: Performed By: #### L [id number] ####[facility] (AKER)[address] [place] [address] Lymphocytes (Bld) [#/Vol] 0.43 10*3/uL Low 1.20-4.00 [facility] Comment on above: Performed By: #### L [id number] ####[facility] (BEAKER)[address] [place] [address] Lymphocytes/100 WBC (Bld) 6.0 % Low 20.0-45.0 [facility] Comment on above: Performed By: #### L [id number] ####[facility] (BEAKER)[address] [place] [address] MCH (RBC) [Entitic mass] 32.1 pg Normal 27.0-33.0 [facility] Comment on above: Performed By: #### L [id number] ####[facility] (BEAKER)[address] [place] [address] MCV (RBC) [Entitic vol] 100.5 fL High 82.0-98.0 [facility] Comment on above: Performed By: #### L [id number] ####[facility] (BEAKER)[address] [place] [address] Monocytes (Bld) [#/Vol] 0.26 10*3/uL Normal 0.10-1.00 [facility] Comment on above: Performed By: #### L [id number] ####[facility] (BEAKER)[address] [place] [address] Monocytes/100 WBC (Bld) 3.6 % Low 5.0-12.0 [facility] Comment on above: Performed By: #### L [id number] ####[facility] (BEAKER)[address] [place] [address] Neutrophils (Bld) [#/Vol] 6.39 10*3/uL Normal 1.60-7.60 [facility] Comment on above: Performed By: #### L [id number] ####[facility] (BEAKER)[address] [place] [address] Neutrophils/100 WBC (Bld) 89.6 % High 40.0-72.0 [facility] Comment on above: Performed By: #### L [id number] ####[facility] ([facility])[address] [place] [address] NRBC (PER 100 WBCS) BY AUTOMATED COUNT 0.0 % Normal 0 [facility] Comment on above: Performed By: #### L [id number] ####[facility] ([facility])[address] [place] [address] PLATELETS (10*3/UL) IN BLOOD AUTOMATED COUNT 161 10*3/uL Normal 150-400 [facility] Comment on above: Performed By: #### L [id number] ####[facility] (BEAKER)[address] [place] [address] RBC (Bld) [#/Vol] 3.77 10*6/uL Low 4.20-5.70 [facility] Comment on above: Performed By: #### L [id number] ####[facility] (BEAKER)[address] [place] [address] WBC (Bld) [#/Vol] 7.14 10*3/uL Normal 4.00-10.60 [facility] Comment on above: Performed By: #### L [id number] ####[facility] (BEAKER)[address] [place] [address] CONSULTon 03-01-2024 CONSULT Normal [facility] MAGNESIUMon 03-01-2024 Magnesium [Mass/Vol] 2.1 mg/dL Normal 1.9-2.7 [facility] Comment on above: Performed By: #### L [id number] ####[facility] ([facility])[address] [place] [address] PHOSPHORUSon 03-01-2024 Magnesium [Mass/Vol] 2.3 mg/dL Low 2.5-5.0 [facility] Comment on above: Performed By: #### L [id number] ####[facility] ([facility])[address] [place] [address] PLATELET COUNTon 03-01-2024 PLATELETS (10*3/UL) IN BLOOD AUTOMATED COUNT 157 10*3/uL Normal 150-400 [facility] Comment on above: Performed By: #### L [id number] ####[facility] ([facility])[address] [place] [address] URINALYSIS WITH MICROSCOPICo n 03-01-2024 BILIRUBIN, TOTAL PRESENCE IN URINE Negative Normal Negative [facility] Comment on above: Performed By: #### L [id number] ####[facility] ([facility])[address] [place] [address] Clarity (U) Turbid Abnormal Clear [facility] Comment on above: Performed By: #### L [id number] ####[facility] ([facility])[address] [place] [address] Color (U) Yellow Normal Colorless, Yellow, Light-Yellow [facility] Comment on above: Performed By: #### L [id number] ####[facility] ([facility])[address] [place] [address] GLUCOSE (MG/DL) IN URINE Normal Normal Normal [facility] Comment on above: Performed By: #### L [id number] ####[facility] ([facility])[address] [place] [address] HEMOGLOBIN PRESENCE IN URINE Moderate Abnormal Negative [facility] Comment on above: Performed By: #### L [id number] ####[facility] ([facility])[address] [place] [address] Ketones Ql (U) Negative Normal Negative [facility] Comment on above: Performed By: #### L [id number] ####[facility] ([facility])[address] [place] [address] LEUKOCYTE ESTERASE PRESENCE IN URINE BY TEST STRIP Large Abnormal Negative [facility] Comment on above: Performed By: #### L [id number] ####[facility] ([facility])[address] [place] [address] MUCUS (#/LPF) IN URINE SEDIMENT Few Normal None Seen, Occasional, Few [facility] Comment on above: Performed By: #### L [id number] ####[facility] ([facility])[address] [place] [address] NITRITE PRESENCE IN URINE Negative Normal Negative [facility] Comment on above: Performed By: #### L [id number] ####[facility] ([facility])[address] [place] [address] pH (U) 5.5 [pH] Normal 5.0-8.0 [facility] Comment on above: Performed By: #### L [id number] ####[facility] ([facility])[address] [place] [address] Protein (U) [Mass/Vol] Negative Normal Negative [facility] Comment on above: Performed By: #### L [id number] ####[facility] ([facility])[address] [place] [address] RBC (#/HPF) IN URINE SEDIMENT >20 Abnormal None Seen, 0-2 [facility] Comment on above: Performed By: #### L [id number] ####[facility] ([facility])[address] [place] [address] Specific gravity (U) [Rel density] 1.012 Normal 1.010-1.030 [facility] Comment on above: Performed By: #### L [id number] ####[facility] ([facility])[address] [place] [address] SQUAMOUS EPITHELIAL CELLS (#/LPF) IN URINE SEDIMENT Many Abnormal None Seen, Occasional, Few [facility] Comment on above: Performed By: #### L [id number] ####[facility] ([facility])[address] [place] [address] UROBILINOGEN (MG/DL) IN URINE Normal Normal Normal [facility] Comment on above: Performed By: #### L [id number] ####[facility] ([facility])[address] [place] [address] WBC (LEUKOCYTE) (#/HPF) IN URINE SEDIMENT >50 Abnormal None Seen, 0-2 [facility] Comment on above: Performed By: #### L [id number] ####[facility] ([facility])[address] [place] [address] WBC (LEUKOCYTE) CLUMPS (#/HPF) IN URINE SEDIMENT Present Abnormal None Seen [facility] Comment on above: Performed By: #### L [id number] ####[facility] ([facility])[address] [place] [address] URINE CULTURE, ROUTINEon Ampicillin [Susc] 2 ug/ml Susceptible [facility] Comment on above: Performed By: #### L [id number] ####[facility] ([facility])[address] [place] [address] Nitrofurantoin [Susc] <=16 Susceptible [facility] Comment on above: Performed By: #### L [id number] ####[facility] ([facility])[address] [place] [address] Vancomycin [Susc] 1 ug/ml Susceptible [facility] Comment on above: Performed By: #### L [id number] ####[facility] ([facility])[address] [place] [address] B-TYPE NATRIURETIC PEPTIDEon 02-29-2024 Natriuretic peptide B (Bld) [Mass/Vol] 524 pg/mL High 0-100 [facility] Comment on above: Performed By: #### L [id number] ####[facility] (BEAKER)[address] [place] [address] BASIC METABOLIC PANELon 02-12 Anion gap [Moles/Vol] 10 mmol/L Normal 7-20 [facility] Comment on above: Performed By: #### L [id number] ####[facility] (BEAKER)[address] [place] [address] Calcium [Mass/Vol] 8.6 mg/dL Normal 8.6-10.3 [facility] Comment on above: Performed By: #### L [id number] ####[facility] ([facility])[address] [place] [address] Chloride [Moles/Vol] 104 mmol/L Normal 98-107 [facility] Comment on above: Performed By: #### L [id number] ####[facility] (BEAKER)[address] [place] [address] CO2 [Moles/Vol] 30 mmol/L Normal 21-31 [facility] Comment on above: Performed By: #### L [id number] ####[facility] ([facility])[address] [place] [address] Creatinine [Mass/Vol] 0.99 mg/dL Normal 0.70-1.30 [facility] Comment on above: Performed By: #### L [id number] ####[facility] ([facility])[address] [place] [address] GLOMERULAR FILTRATION RATE ML/MIN/1.73 SQ M.PREDICTED 78.0 mL/min/1.73m*2 Normal >60.0 [facility] Comment on above: Result Comment: The [facility]???s estimated glomerular filtration rate (eGFR) will no [...] of individuals. Performed By: #### L [id number] ####[facility] ([facility])[address] [place] [address] Glucose [Mass/Vol] 134 mg/dL High 70-100 [facility] Comment on above: Performed By: #### L [id number] ####[facility] ([facility])[address] [place] [address] Potassium [Moles/Vol] 3.4 mmol/L Low 3.5-5.1 [facility] Comment on above: Performed By: #### L [id number] ####[facility] ([facility])[address] [place] [address] Sodium [Moles/Vol] 141 mmol/L Normal 136-145 [facility] Comment on above: Performed By: #### L [id number] ####[facility] ([facility])[address] [place] [address] Urea nitrogen [Mass/Vol] 24 mg/dL Normal 7-25 [facility] Comment on above: Performed By: #### L [id number] ####[facility] ([facility])[address] [place] [address] UREA NITROGEN/CREATININE (MASS RATIO) IN SER/PLAS 24.2 Normal [facility] Comment on above: Performed By: #### L [id number] ####[facility] ([facility])[address] [place] [address] Anion gap [Moles/Vol] 10 mmol/L Normal 7-20 [facility] Comment on above: Performed By: #### L [id number] ####[facility] ([facility])[address] [place] [address] Calcium [Mass/Vol] 8.4 mg/dL Low 8.6-10.3 [facility] Comment on above: Performed By: #### L [id number] ####[facility] ([facility])[address] [place] [address] Chloride [Moles/Vol] 105 mmol/L Normal 98-107 [facility] Comment on above: Performed By: #### L [id number] ####[facility] ([facility])[address] [place] [place] [address] CO2 [Moles/Vol] 28 mmol/L Normal 21-31 [facility] Comment on above: Performed By: #### L [id number] ####[facility] ([facility])[address] [place] [address] Creatinine [Mass/Vol] 1.06 mg/dL Normal 0.70-1.30 [facility] Comment on above: Performed By: #### L [id number] ####[facility] ([facility])[address] [place] [address] GLOMERULAR FILTRATION RATE ML/MIN/1.73 SQ M.PREDICTED 71.8 mL/min/1.73m*2 Normal >60.0 [facility] Comment on above: Result Comment: The [facility]???s estimated glomerular filtration rate (eGFR) will no [...] of individuals. Performed By: #### L [id number] ####[facility] ([facility])[address] [place] [address] Glucose [Mass/Vol] 141 mg/dL High 70-100 [facility] Comment on above: Performed By: #### L [id number] ####[facility] ([facility])[address] [place] [address] Potassium [Moles/Vol] 3.5 mmol/L Normal 3.5-5.1 [facility] Comment on above: Performed By: #### L [id number] ####[facility] ([facility])[address] [place] [address] Sodium [Moles/Vol] 139 mmol/L Normal 136-145 [facility] Comment on above: Performed By: #### L [id number] ####[facility] ([facility])[address] [place] [address] Urea nitrogen [Mass/Vol] 23 mg/dL Normal 7-25 [facility] Comment on above: Performed By: #### L [id number] ####[facility] ([facility])[address] [place] [address] UREA NITROGEN/CREATININE (MASS RATIO) IN SER/PLAS 21.7 Normal [facility] Comment on above: Performed By: #### L [id number] ####[facility] ([facility])[address] [place] [address] CBC WITH AUTO DIFFERENTIALon 02-29-2024 Basophils (Bld) [#/Vol] 0.01 10*3/uL Normal 0.00-0.20 [facility] Comment on above: Performed By: #### L [id number] ####[facility] ([facility])[address] [place] [address] Basophils/100 WBC (Bld) 0.2 % Normal 0.0-1.0 [facility] Comment on above: Performed By: #### L [id number] ####[facility] ([facility])[address] [place] [address] Eosinophils (Bld) [#/Vol] 0.00 10*3/uL Normal 0.00-0.50 [facility] Comment on above: Performed By: #### L [id number] ####[facility] ([facility])[address] [place] [address] Eosinophils/100 WBC (Bld) 0.0 % Normal 0.0-6.0 [facility] Comment on above: Performed By: #### L [id number] ####[facility] ([facility])[address] [place] [address] Erythrocyte distribution width (RBC) [Ratio] 12.8 % Normal 11.5-15.0 [facility] Comment on above: Performed By: #### L [id number] ####[facility] (BEAKER)[address] [place] [address] ERYTHROCYTE MEAN CORPUSCULAR HEMOGLOBIN CONCENTRATION (G/DL) BY AUTOMATED 32.0 g/dL Normal 32.0-35.0 [facility] Comment on above: Performed By: #### L [id number] ####[facility] (BEAKER)[address] [place] [address] Hematocrit (Bld) [Volume fraction] 38.7 % Low 39.0-55.0 [facility] Comment on above: Performed By: #### L [id number] ####[facility] (BEAKER)[address] [place] [address] Hemoglobin (Bld) [Mass/Vol] 12.4 g/dL Low 13.0-17.0 [facility] Comment on above: Performed By: #### L [id number] ####[facility] (BEAKER)[address] [place] [address] Immature granulocytes (Bld) [#/Vol] 0.04 10*3/uL Normal 0.00-0.20 [facility] Comment on above: Performed By: #### L [id number] ####[facility] (BEAKER)[address] [place] [address] Immature granulocytes/100 WBC (Bld) 0.7 % Normal 0.0-1.0 [facility] Comment on above: Performed By: #### L [id number] ####[facility] (BEAKER)[address] [place] [address] IMMATURE PLATELET FRACTION % 4.9 % Normal 0.8-6.3 [facility] Comment on above: Performed By: #### L [id number] ####[facility] (BEAKER)[address] [place] [address] Lymphocytes (Bld) [#/Vol] 0.38 10*3/uL Low 1.20-4.00 [facility] Comment on above: Performed By: #### L [id number] ####[facility] ([facility])[address] [place] [address] Lymphocytes/100 WBC (Bld) 6.2 % Low 20.0-45.0 [facility] Comment on above: Performed By: #### L [id number] ####[facility] ([facility])[address] [place] [address] MCH (RBC) [Entitic mass] 32.0 pg Normal 27.0-33.0 [facility] Comment on above: Performed By: #### L [id number] ####[facility] ([facility])[address] [place] [address] MCV (RBC) [Entitic vol] 100.0 fL High 82.0-98.0 [facility] Comment on above: Performed By: #### L [id number] ####[facility] ([facility])[address] [place] [address] Monocytes (Bld) [#/Vol] 0.35 10*3/uL Normal 0.10-1.00 [facility] Comment on above: Performed By: #### L [id number] ####[facility] ([facility])[address] [place] [address] Monocytes/100 WBC (Bld) 5.7 % Normal 5.0-12.0 [facility] Comment on above: Performed By: #### L [id number] ####[facility] ([facility])[address] [place] [address] Neutrophils (Bld) [#/Vol] 5.36 10*3/uL Normal 1.60-7.60 [facility] Comment on above: Performed By: #### L [id number] ####[facility] (BEAKER)[address] [place] [address] Neutrophils/100 WBC (Bld) 87.2 % High 40.0-72.0 [facility] Comment on above: Performed By: #### L [id number] ####[facility] ([facility])[address] [place] [address] NRBC (PER 100 WBCS) BY AUTOMATED COUNT 0.0 % Normal 0 [facility] Comment on above: Performed By: #### L [id number] ####[facility] ([facility])[address] [address] PLATELETS (10*3/UL) IN BLOOD AUTOMATED COUNT 122 10*3/uL Low 150-400 [facility] Comment on above: Performed By: #### L [id number] ####[facility] ([facility])[address] [place] [address] RBC (Bld) [#/Vol] 3.87 10*6/uL Low 4.20-5.70 [facility] Comment on above: Performed By: #### L [id number] ####[facility] ([facility])[address] [place] [address] WBC (Bld) [#/Vol] 6.14 10*3/uL Normal 4.00-10.60 [facility] Comment on above: Performed By: #### L [id number] ####[facility] ([facility])[address] [place] [address] CONSULTon 02-29-2024 CONSULT Normal [facility] LEGIONELLA ANTIGEN, URINEon 02-29-2024 LEGIONELLA AG, UR Negative Normal [facility] Comment on above: Result Comment: L. p neumophila serogroup 1 antigen not detected.A negative result does not exclude infection with Leginella pnemophila serogroup 1 nor does it rule out other microbial-caused respiratory infections of disease caused by other serogroups of Legionella pneumophila.Test Performed by [employer] [address] [place] [id number] - Released 03/01/2024 15:07 Performed By: #### L [id number] ####[facility] [id number] [place] [address] MAGNESIUMon 02-29-2024 Magnesium [Mass/Vol] 2.0 mg/dL Normal 1.9-2.7 [facility] Comment on above: Performed By: #### L [id number] ####[facility] ([facility])[address] [place] [place] [address] Magnesium [Mass/Vol] 1.9 mg/dL Normal 1.9-2.7 [facility] Comment on above: Performed By: #### L [id number] ####[facility] ([facility])[address] [place] [place] [address] PHOSPHORUSon 02-29-2024 Magnesium [Mass/Vol] 2.4 mg/dL Low 2.5-5.0 [facility] Comment on above: Performed By: #### L [id number] ####[facility] ([facility])[address] [place] [address] RESPIRATORY VIRUS PCR PANELo n 02-29-2024 ADENOVIRUS DETECTION BY PCR Not detected Normal Not Detected [facility] Comment on above: Order Comment: Testi ng methodology is a multiplexed nucleic acid test intended for the simultaneous qualitative detection and differentiation of nucleic acids from multiple viral and bacterial respiratory organisms in nasopharyngeal swabs (HACKSAW INSPECTOR). Performed By: #### L [id number] ####[facility] ([facility])[address] [facility] [place] [address] B. PARAPERTUSSIS DNA Not detected Normal Not Detected [facility] Comment on above: Order Comment: Testi ng methodology is a multiplexed nucleic acid test intended for the simultaneous qualitative detection and differentiation of nucleic acids from multiple viral and bacterial respiratory organisms in nasopharyngeal swabs (HACKSAW INSPECTOR). Performed By: #### L [id number] ####[facility] ([facility])[address] [place] [facility] [address] BORDETELLA PERTUSSIS DNA PRESENCE IN UNSPECIFIED SPECIMEN BY CT* Not detected Normal Not Detected [facility] Comment on above: Order Comment: Testi ng methodology is a multiplexed nucleic acid test intended for the simultaneous qualitative detection and differentiation of nucleic acids from multiple viral and bacterial respiratory organisms in nasopharyngeal swabs (HACKSAW INSPECTOR). Performed By: #### L [id number] ####[facility] ([facility])[address] [facility] [place] [address] CHLAMYDOPHILA PNEUMONIAE Not detected Normal Not Detected [facility] Comment on above: Order Comment: Testi ng methodology is a multiplexed nucleic acid test intended for the simultaneous qualitative detection and differentiation of nucleic acids from multiple viral and bacterial respiratory organisms in nasopharyngeal swabs (HACKSAW INSPECTOR). Performed By: #### L [id number] ####[facility] ([facility])[address] [place] [address] CORONAVIRUS 229E Not detected Normal Not Detected [facility] Comment on above: Order Comment: Testi ng methodology is a multiplexed nucleic acid test intended for the simultaneous qualitative detection and differentiation of nucleic acids from multiple viral and bacterial respiratory organisms in nasopharyngeal swabs (HACKSAW INSPECTOR). Performed By: #### L [id number] ####[facility] ([facility])[address] [place] [address] CORONAVIRUS HKU1 Not detected Normal Not Detected [facility] Comment on above: Order Comment: Testi ng methodology is a multiplexed nucleic acid test intended for the simultaneous qualitative detection and differentiation of nucleic acids from multiple viral and bacterial respiratory organisms in nasopharyngeal swabs (HACKSAW INSPECTOR). Performed By: #### L [id number] ####[facility] ([facility])[address] [place] [address] CORONAVIRUS [id number] Not detected Normal Not Detected [facility] Comment on above: Order Comment: Testi ng methodology is a multiplexed nucleic acid test intended for the simultaneous qualitative detection and differentiation of nucleic acids from multiple viral and bacterial respiratory organisms in nasopharyngeal swabs (HACKSAW INSPECTOR). Performed By: #### L [id number] ####[facility] ([facility])[address] [place] [address] CORONAVIRUS OC43 Not detected Normal Not Detected [facility] Comment on above: Order Comment: Testi ng methodology is a multiplexed nucleic acid test intended for the simultaneous qualitative detection and differentiation of nucleic acids from multiple viral and bacterial respiratory organisms in nasopharyngeal swabs (HACKSAW INSPECTOR). Performed By: #### L [id number] ####[facility] ([facility])[address] [place] [address] HUMAN METAPNEUMOVIRUS Not detected Normal Not Detected [facility] Comment on above: Order Comment: Testi ng methodology is a multiplexed nucleic acid test intended for the simultaneous qualitative detection and differentiation of nucleic acids from multiple viral and bacterial respiratory organisms in nasopharyngeal swabs (HACKSAW INSPECTOR). Performed By: #### L [id number] ####[facility] ([facility])[address] [place] [address] HUMAN RHINOVIRUS+ENTEROVI NAUN Not detected Normal Not Detected [facility] Comment on above: Order Comment: Testi ng methodology is a multiplexed nucleic acid test intended for the simultaneous qualitative detection and differentiation of nucleic acids from multiple viral and bacterial respiratory organisms in nasopharyngeal swabs (HACKSAW INSPECTOR). Performed By: #### L [id number] ####[facility] ([facility])[address] [place] [address] INFLUENZA A Not detected Normal Not Detected [facility] Comment on above: Order Comment: Testi ng methodology is a multiplexed nucleic acid test intended for the simultaneous qualitative detection and differentiation of nucleic acids from multiple viral and bacterial respiratory organisms in nasopharyngeal swabs (HACKSAW INSPECTOR). Performed By: #### L [id number] ####[facility] ([facility])[address] [facility] [place] [address] INFLUENZA B Not detected Normal Not Detected [facility] Comment on above: Order Comment: Testi ng methodology is a multiplexed nucleic acid test intended for the simultaneous qualitative detection and differentiation of nucleic acids from multiple viral and bacterial respiratory organisms in nasopharyngeal swabs (HACKSAW INSPECTOR). Performed By: #### L [id number] ####[facility] ([facility])[address] [place] [address] MYCOPLASMA PNEUMONIAE Not detected Normal Not Detected [facility] Comment on above: Order Comment: Testi ng methodology is a multiplexed nucleic acid test intended for the simultaneous qualitative detection and differentiation of nucleic acids from multiple viral and bacterial respiratory organisms in nasopharyngeal swabs (HACKSAW INSPECTOR). Performed By: #### L [id number] ####[facility] ([facility])[address] [place] [address] PARAINFLUENZA 1 Not detected Normal Not Detected [facility] Comment on above: Order Comment: Testi ng methodology is a multiplexed nucleic acid test intended for the simultaneous qualitative detection and differentiation of nucleic acids from multiple viral and bacterial respiratory organisms in nasopharyngeal swabs (HACKSAW INSPECTOR). Performed By: #### L [id number] ####[facility] ([facility])[address] [place] [address] PARAINFLUENZA 2 Not detected Normal Not Detected [facility] Comment on above: Order Comment: Testi ng methodology is a multiplexed nucleic acid test intended for the simultaneous qualitative detection and differentiation of nucleic acids from multiple viral and bacterial respiratory organisms in nasopharyngeal swabs (HACKSAW INSPECTOR). Performed By: #### L [id number] ####[facility] ([facility])[address] [place] [address] PARAINFLUENZA 3 Not detected Normal Not Detected [facility] Comment on above: Order Comment: Testi ng methodology is a multiplexed nucleic acid test intended for the simultaneous qualitative detection and differentiation of nucleic acids from multiple viral and bacterial respiratory organisms in nasopharyngeal swabs (HACKSAW INSPECTOR). Performed By: #### L [id number] ####[facility] ([facility])[address] [place] [address] PARAINFLUENZA 4 Not detected Normal Not Detected [facility] Comment on above: Order Comment: Testi ng methodology is a multiplexed nucleic acid test intended for the simultaneous qualitative detection and differentiation of nucleic acids from multiple viral and bacterial respiratory organisms in nasopharyngeal swabs (HACKSAW INSPECTOR). Performed By: #### L [id number] ####[facility] ([facility])[address] [place] [address] RESP SYNCYTIAL VIRUS Not detected Normal Not Detected [facility] Comment on above: Order Comment: Testi ng methodology is a multiplexed nucleic acid test intended for the simultaneous qualitative detection and differentiation of nucleic acids from multiple viral and bacterial respiratory organisms in nasopharyngeal swabs (HACKSAW INSPECTOR). Performed By: #### L [id number] ####[facility] ([facility])[address] [place] [address] SARS-CoV-2 (COVID-19) RNA TAI+probe Ql (Unsp spec) Not detected Normal Not Detected [facility] Comment on above: Order Comment: Testi ng methodology is a multiplexed nucleic acid test intended for the simultaneous qualitative detection and differentiation of nucleic acids from multiple viral and bacterial respiratory organisms in nasopharyngeal swabs (HACKSAW INSPECTOR). Performed By: #### L [id number] ####[facility] (BEAKER)[address] [place] [address] ANTI-XA (HEPARIN LEVEL)on HEPARIN UNFRACTIONATED (U/ML) IN PPP BY CHROMOGENIC METHOD <0.10 Invalid Interpretation Code 0.3-0.7 [facility] Comment on above: Order Comment: Check anti-Xa level every 6 hours while on heparin infusion, or per protocol. Result Comment: Ricarda roxaban and Apixaban will interfere with the anti Xa assay used to monitor UFH and LMWH. Performed By: #### L [id number] ####[facility] (BEAKER)[address] [place] [address] BASIC METABOLIC PANELon 02-12 Anion gap [Moles/Vol] 10 mmol/L Normal 7-20 [facility] Comment on above: Performed By: #### L [id number] ####[facility] ([facility] [place] [address] Calcium [Mass/Vol] 8.0 mg/dL Low 8.6-10.3 [facility] Comment on above: Performed By: #### L [id number] ####[facility] (BEAKER)[address] [place] [address] Chloride [Moles/Vol] 102 mmol/L Normal 98-107 [facility] Comment on above: Performed By: #### L [id number] ####[facility] (BEAKER)[address] [place] [address] CO2 [Moles/Vol] 30 mmol/L Normal 21-31 [facility] Comment on above: Performed By: #### L [id number] ####[facility] (BEAKER)[address] [place] [address] Creatinine [Mass/Vol] 1.22 mg/dL Normal 0.70-1.30 [facility] Comment on above: Performed By: #### L [id number] ####[facility] (BEAKER)[address] [place] [address] GLOMERULAR FILTRATION RATE ML/MIN/1.73 SQ M.PREDICTED 60.7 mL/min/1.73m*2 Normal >60.0 [facility] Comment on above: Result Comment: The [facility]???s estimated glomerular filtration rate (eGFR) will no [...] of individuals. Performed By: #### L [id number] ####[facility] ([facility])[address] [facility] [place] [address] Glucose [Mass/Vol] 94 mg/dL Normal 70-100 [facility] Comment on above: Performed By: #### L [id number] ####[facility] ([facility])[address] [facility] [place] [address] Potassium [Moles/Vol] 3.0 mmol/L Low 3.5-5.1 [facility] Comment on above: Performed By: #### L [id number] ####[facility] ([facility])[address] [facility] [place] [address] Sodium [Moles/Vol] 139 mmol/L Normal 136-145 [facility] Comment on above: Performed By: #### L [id number] ####[facility] ([facility])[address] [facility] [place] [address] Urea nitrogen [Mass/Vol] 16 mg/dL Normal 7-25 [facility] Comment on above: Performed By: #### L [id number] ####[facility] ([facility])[address] [facility] [place] [address] UREA NITROGEN/CREATININE (MASS RATIO) IN SER/PLAS 13.1 Normal [facility] Comment on above: Performed By: #### L [id number] ####[facility] ([facility])[address] [facility] [place] [address] CBC WITH AUTO DIFFERENTIALon 02-28-2024 Basophils (Bld) [#/Vol] 0.03 10*3/uL Normal 0.00-0.20 [facility] Comment on above: Performed By: #### L [id number] ####[facility] ([facility])[address] [place] [address] Basophils/100 WBC (Bld) 0.3 % Normal 0.0-1.0 [facility] Comment on above: Performed By: #### L [id number] ####[facility] ([facility])[address] [place] [address] Eosinophils (Bld) [#/Vol] 0.00 10*3/uL Normal 0.00-0.50 [facility] Comment on above: Performed By: #### L [id number] ####[facility] ([facility])[address] [place] [address] Eosinophils/100 WBC (Bld) 0.0 % Normal 0.0-6.0 [facility] Comment on above: Performed By: #### L [id number] ####[facility] ([facility])[address] [place] [address] Erythrocyte distribution width (RBC) [Ratio] 13.0 % Normal 11.5-15.0 [facility] Comment on above: Performed By: #### L [id number] ####[facility] ([facility])[address] [place] [address] ERYTHROCYTE MEAN CORPUSCULAR HEMOGLOBIN CONCENTRATION (G/DL) BY AUTOMATED 32.3 g/dL Normal 32.0-35.0 [facility] Comment on above: Performed By: #### L [id number] ####[facility] ([facility])[address] [place] [address] Hematocrit (Bld) [Volume fraction] 37.5 % Low 39.0-55.0 [facility] Comment on above: Performed By: #### L [id number] ####[facility] ([facility])[address] [place] [address] Hemoglobin (Bld) [Mass/Vol] 12.1 g/dL Low 13.0-17.0 [facility] Comment on above: Performed By: #### L [id number] ####[facility] ([facility])[address] [place] [address] Immature granulocytes (Bld) [#/Vol] 0.06 10*3/uL Normal 0.00-0.20 [facility] Comment on above: Performed By: #### L [id number] ####[facility] ([facility])[address] [place] [address] Immature granulocytes/100 WBC (Bld) 0.6 % Normal 0.0-1.0 [facility] Comment on above: Performed By: #### L [id number] ####[facility] (AKER)[address] [place] [address] Lymphocytes (Bld) [#/Vol] 0.56 10*3/uL Low 1.20-4.00 [facility] Comment on above: Performed By: #### L [id number] ####[facility] ([facility])[address] [place] [address] Lymphocytes/100 WBC (Bld) 6.1 % Low 20.0-45.0 [facility] Comment on above: Performed By: #### L [id number] ####[facility] ([facility])[address] [place] [address] MCH (RBC) [Entitic mass] 32.3 pg Normal 27.0-33.0 [facility] Comment on above: Performed By: #### L [id number] ####[facility] ([facility])[address] [place] [address] MCV (RBC) [Entitic vol] 100.0 fL High 82.0-98.0 [facility] Comment on above: Performed By: #### L [id number] ####[facility] ([facility])[address] [place] [address] Monocytes (Bld) [#/Vol] 1.19 10*3/uL High 0.10-1.00 [facility] Comment on above: Performed By: #### L [id number] ####[facility] ([facility])[address] [place] [address] Monocytes/100 WBC (Bld) 12.9 % High 5.0-12.0 [facility] Comment on above: Performed By: #### L [id number] ####[facility] ([facility])[address] [place], [place] [address] Neutrophils (Bld) [#/Vol] 7.41 10*3/uL Normal 1.60-7.60 [facility] Comment on above: Performed By: #### L [id number] ####[facility] ([facility])[address] [place], [place] [address] Neutrophils/100 WBC (Bld) 80.1 % High 40.0-72.0 [facility] Comment on above: Performed By: #### L [id number] ####[facility] ([facility])[address] [place] [address] NRBC (PER 100 WBCS) BY AUTOMATED COUNT 0.0 % Normal 0 [facility] Comment on above: Performed By: #### L [id number] ####[facility] ([facility])[address] [place] [address] PLATELETS (10*3/UL) IN BLOOD AUTOMATED COUNT 146 10*3/uL Low 150-400 [facility] Comment on above: Performed By: #### L [id number] ####[facility] ([facility])[address] [place] [address] RBC (Bld) [#/Vol] 3.75 10*6/uL Low 4.20-5.70 [facility] Comment on above: Performed By: #### L [id number] ####[facility] ([facility])[address] [place] [address] WBC (Bld) [#/Vol] 9.25 10*3/uL Normal 4.00-10.60 [facility] Comment on above: Performed By: #### L [id number] ####[facility] ([facility])[address] [place] [address] MAGNESIUMon 02-28-2024 Magnesium [Mass/Vol] 1.5 mg/dL Low 1.9-2.7 [facility] Comment on above: Performed By: #### L [id number] ####[facility] ([facility])[address] [place] [address] PHOSPHORUSon 02-28-2024 Magnesium [Mass/Vol] 2.7 mg/dL Normal 2.5-5.0 [facility] Comment on above: Performed By: #### L [id number] ####[facility] ([facility])[address] [place] [address] PROCALCITONIN TESTon 024 PROCALCITONIN IN BLOOD 3.55 ng/mL Critically high 0.00-0.10 [facility] Comment on above: Result Comment: Susp ected [...] and initial PCT<0.5ng/mL Performed By: #### L [id number] ####[facility] ([facility])[address] [place] [address] URINALYSIS WITH MICROSCOPICo n 02-28-2024 BILIRUBIN, TOTAL PRESENCE IN URINE Negative Normal Negative [facility] Comment on above: Performed By: #### L [id number] ####[facility] ([facility])[address] [place] [address] Clarity (U) Cloudy Abnormal Clear [facility] Comment on above: Performed By: #### L [id number] ####[facility] ([facility])[address] [place] [address] Color (U) Yellow Normal Colorless, Yellow, Light-Yellow [facility] Comment on above: Performed By: #### L [id number] ####[facility] ([facility])[address] [place] [address] GLUCOSE (MG/DL) IN URINE Normal Normal Normal [facility] Comment on above: Performed By: #### L [id number] ####[facility] ([facility])[address] [place] [address] HEMOGLOBIN PRESENCE IN URINE Moderate Abnormal Negative [facility] Comment on above: Performed By: #### L [id number] ####[facility] ([facility])[address] [place] [address] Ketones Ql (U) Negative Normal Negative [facility] Comment on above: Performed By: #### L [id number] ####[facility] ([facility])[address] [place] [address] LEUKOCYTE ESTERASE PRESENCE IN URINE BY TEST STRIP Large Abnormal Negative [facility] Comment on above: Performed By: #### L [id number] ####[facility] ([facility])[address] [place] [address] MUCUS (#/LPF) IN URINE SEDIMENT Occasional Normal None Seen, Occasional, Few [facility] Comment on above: Performed By: #### L [id number] ####[facility] ([facility])[address] [place] [address] NITRITE PRESENCE IN URINE Negative Normal Negative [facility] Comment on above: Performed By: #### L [id number] ####[facility] ([facility])[address] [place] [address] pH (U) 6.0 [pH] Normal 5.0-8.0 [facility] Comment on above: Performed By: #### L [id number] ####[facility] ([facility])[address] [place] [address] Protein (U) [Mass/Vol] 30 mg/dL Abnormal Negative [facility] Comment on above: Performed By: #### L [id number] ####[facility] ([facility])[address] [place] [address] RBC (#/HPF) IN URINE SEDIMENT 11-20 Abnormal None Seen, 0-2 [facility] Comment on above: Performed By: #### L [id number] ####[facility] ([facility])[address] [place] [address] Specific gravity (U) [Rel density] 1.018 Normal 1.010-1.030 [facility] Comment on above: Performed By: #### L [id number] ####[facility] ([facility])[address] [place] [address] SQUAMOUS EPITHELIAL CELLS (#/LPF) IN URINE SEDIMENT Few Normal None Seen, Occasional, Few [facility] Comment on above: Performed By: #### L [id number] ####[facility] ([facility])[address] [place] [address] UROBILINOGEN (MG/DL) IN URINE Normal Normal Normal [facility] Comment on above: Performed By: #### L [id number] ####[facility] ([facility])[address] [place] [address] WBC (LEUKOCYTE) (#/HPF) IN URINE SEDIMENT >50 Abnormal None Seen, 0-2 [facility] Comment on above: Performed By: #### L [id number] ####[facility] ([facility])[address] [place] [address] WBC (LEUKOCYTE) CLUMPS (#/HPF) IN URINE SEDIMENT Present Abnormal None Seen [facility] Comment on above: Performed By: #### L [id number] ####[facility] ([facility])[address] [place] [address] YEAST, BUDDING (#/HPF) IN URINE Occasional Abnormal None Seen [facility] Comment on above: Performed By: #### L [id number] ####[facility] ([facility])[address] [place] [address] VENOUS BLOOD GAS WITH IONIZE D CALCIUMon 02-28-2024 Base excess Calc (BldV) [Moles/Vol] 3.8 mmol/L Normal [facility] Comment on above: Order Comment: Bipap 16/8 RR 14 FiO2 75% Performed By: #### L [id number] ####[facility] [id number] [place] [address] [place] CALCIUM IONIZED (MMOL/L) IN BLOOD 1.06 mmol/L Low 1.15-1.33 [facility] Comment on above: Order Comment: Bipap 16/8 RR 14 FiO2 75% Performed By: #### L [id number] ####[facility]PIR[facility] [id number] [place] [address] [place] CO2 (BldV) [Partial pressure] 46 mm[Hg] Normal 40-50 [facility] Comment on above: Order Comment: Bipap 16/8 RR 14 FiO2 75% Performed By: #### L [id number] ####[facility]PIRATORY [id number] [place] [address] [place] HCO3 (Bld) [Moles/Vol] 29.2 mmol/L Normal [facility] Comment on above: Order Comment: Bipap 16/8 RR 14 FiO2 75% Performed By: #### L [id number] ####[facility] RESPIRATORY [id number] [place] [address] [place] Oxygen (BldV) [Partial pressure] 47 mm[Hg] High 35-45 [facility] Comment on above: Order Comment: Bipap 16/8 RR 14 FiO2 75% Performed By: #### L [id number] ####[facility]AT[facility] [id number] [place] [address] [place] OXYGEN SATURATION (%) IN VENOUS BLOOD 78.8 % High 65.0-75.0 [facility] Comment on above: Order Comment: Bipap 16/8 RR 14 FiO2 75% Performed By: #### L [id number] ####[facility]PIRATORY [id number] [place] [address] [place] PH OF VENOUS BLOOD 7.41 Normal 7.31-7.41 [facility] Comment on above: Order Comment: Bipap 16/8 RR 14 FiO2 75% Performed By: #### L [id number] ####[facility] RESPIRATORY [id number] [place] [address] [place] 30on 02-27-2024 30 Normal [facility] 30 Normal [facility] ANESon 02-27-2024 ANES Normal [facility] ANTI-XA (HEPARIN LEVEL)on HEPARIN UNFRACTIONATED (U/ML) IN PPP BY CHROMOGENIC METHOD 0.51 IU/mL Normal 0.3-0.7 [facility] Comment on above: Result Comment: Paton roxaban and Apixaban will interfere with the anti Xa assay used to monitor UFH and LMWH. Performed By: #### L [id number] ####[facility] (BEAKER)[address] [place] [address] HEPARIN UNFRACTIONATED (U/ML) IN PPP BY CHROMOGENIC METHOD 0.28 IU/mL Low 0.3-0.7 [facility] Comment on above: Order Comment: Check anti-Xa level every 6 hours while on heparin infusion, or per protocol. Result Comment: Ricarda roxaban and Apixaban will interfere with the anti Xa assay used to monitor UFH and LMWH. Performed By: #### L [id number] ####[facility] ([facility]ER)[address] [place] [address] HEPARIN UNFRACTIONATED (U/ML) IN PPP BY CHROMOGENIC METHOD 0.21 IU/mL Low 0.3-0.7 [facility] Comment on above: Result Comment: Paton roxaban and Apixaban will interfere with the anti Xa assay used to monitor UFH and LMWH. Performed By: #### L [id number] ####[facility] ([facility])[address] [place] [address] BASIC METABOLIC PANELon 10- Anion gap [Moles/Vol] 9 mmol/L Normal 7-20 [facility] Comment on above: Performed By: #### L [id number] ####[facility] ([facility])[address] [place] [address] Calcium [Mass/Vol] 8.4 mg/dL Low 8.6-10.3 [facility] Comment on above: Performed By: #### L [id number] ####[facility] ([facility])[address] [place] [address] Chloride [Moles/Vol] 105 mmol/L Normal 98-107 [facility] Comment on above: Performed By: #### L [id number] ####[facility] ([facility])[address] [place] [address] CO2 [Moles/Vol] 27 mmol/L Normal 21-31 [facility] Comment on above: Performed By: #### L [id number] ####[facility] ([facility])[address] [place] [address] Creatinine [Mass/Vol] 0.88 mg/dL Normal 0.70-1.30 [facility] Comment on above: Performed By: #### L [id number] ####[facility] ([facility])[address] [place] [address] GLOMERULAR FILTRATION RATE ML/MIN/1.73 SQ M.PREDICTED 88.0 mL/min/1.73m*2 Normal >60.0 [facility] Comment on above: Result Comment: The [facility]???s estimated glomerular filtration rate (eGFR) will no [...] of individuals. Performed By: #### L [id number] ####[facility] ([facility])[address] [place] [address] Glucose [Mass/Vol] 116 mg/dL High 70-100 [facility] Comment on above: Performed By: #### L [id number] ####[facility] ([facility])[address] [place] [address] Potassium [Moles/Vol] 3.8 mmol/L Normal 3.5-5.1 [facility] Comment on above: Performed By: #### L [id number] ####[facility] ([facility])[address] [place] [address] Sodium [Moles/Vol] 137 mmol/L Normal 136-145 [facility] Comment on above: Performed By: #### L [id number] ####[facility] (BEAKER)[address] [place] [address] Urea nitrogen [Mass/Vol] 11 mg/dL Normal 7-25 [facility] Comment on above: Performed By: #### L [id number] ####[facility] (BEAKER)[address] [place] [address] UREA NITROGEN/CREATININE (MASS RATIO) IN SER/PLAS 12.5 Normal [facility] Comment on above: Performed By: #### L [id number] ####[facility] (BEAKER)[address] [place] [address] BLOOD CULTUREon 02-27-2024 Bacteria identified Cx Nom (Bld) No growth at 5 days Normal [facility] Comment on above: Performed By: #### L [id number] ####[facility] (BEAKER)[address] [place] [address] CALCIUM, IONIZEDon CALCIUM IONIZED (MMOL/L) IN BLOOD 1.20 mmol/L Normal 1.15-1.33 [facility] Comment on above: Performed By: #### C ALCIUM, IONIZED ####[facility] RESPIRATORY [id number] [place] [address] [place] CBC WITH AUTO DIFFERENTIALon 02-27-2024 Basophils (Bld) [#/Vol] 0.02 10*3/uL Normal 0.00-0.20 [facility] Comment on above: Performed By: #### L [id number] ####[facility] (BEAKER)[address] [place] [address] Basophils/100 WBC (Bld) 0.4 % Normal 0.0-1.0 [facility] Comment on above: Performed By: #### L [id number] ####[facility] (BEAKER)[address] [place] [address] Eosinophils (Bld) [#/Vol] 0.03 10*3/uL Normal 0.00-0.50 [facility] Comment on above: Performed By: #### L [id number] ####[facility] (BEAKER)[address] [place] [address] Eosinophils/100 WBC (Bld) 0.7 % Normal 0.0-6.0 [facility] Comment on above: Performed By: #### L [id number] ####[facility] (BEAKER)[address] [place] [address] Erythrocyte distribution width (RBC) [Ratio] 13.1 % Normal 11.5-15.0 [facility] Comment on above: Performed By: #### L [id number] ####[facility] (BEAKER)[address] [place] [address] ERYTHROCYTE MEAN CORPUSCULAR HEMOGLOBIN CONCENTRATION (G/DL) BY AUTOMATED 31.8 g/dL Low 32.0-35.0 [facility] Comment on above: Performed By: #### L [id number] ####[facility] (BEAKER)[address] [place] [address] Hematocrit (Bld) [Volume fraction] 37.7 % Low 39.0-55.0 [facility] Comment on above: Performed By: #### L [id number] ####[facility] ([facility])[address] [place] [address] Hemoglobin (Bld) [Mass/Vol] 12.0 g/dL Low 13.0-17.0 [facility] Comment on above: Performed By: #### L [id number] ####[facility] ([facility])[address] [place] [address] Immature granulocytes (Bld) [#/Vol] 0.02 10*3/uL Normal 0.00-0.20 [facility] Comment on above: Performed By: #### L [id number] ####[facility] ([facility])[address] [place] [address] Immature granulocytes/100 WBC (Bld) 0.4 % Normal 0.0-1.0 [facility] Comment on above: Performed By: #### L [id number] ####[facility] ([facility])[address] [place] [address] IMMATURE PLATELET FRACTION % 3.0 % Normal 0.8-6.3 [facility] Comment on above: Performed By: #### L [id number] ####[facility] ([facility])[address] [place] [address] Lymphocytes (Bld) [#/Vol] 0.73 10*3/uL Low 1.20-4.00 [facility] Comment on above: Performed By: #### L [id number] ####[facility] ([facility])[address] [place] [address] Lymphocytes/100 WBC (Bld) 16.0 % Low 20.0-45.0 [facility] Comment on above: Performed By: #### L [id number] ####[facility] (BEAKER)[address] [place] [address] MCH (RBC) [Entitic mass] 32.1 pg Normal 27.0-33.0 [facility] Comment on above: Performed By: #### L [id number] ####[facility] (BEAKER)[address] [place] [address] MCV (RBC) [Entitic vol] 100.8 fL High 82.0-98.0 [facility] Comment on above: Performed By: #### L [id number] ####[facility] (BEAKER)[address] [place] [address] Monocytes (Bld) [#/Vol] 0.85 10*3/uL Normal 0.10-1.00 [facility] Comment on above: Performed By: #### L [id number] ####[facility] ([facility])[address] [place] [address] Monocytes/100 WBC (Bld) 18.7 % High 5.0-12.0 [facility] Comment on above: Performed By: #### L [id number] ####[facility] ([facility])[address] [place] [address] Neutrophils (Bld) [#/Vol] 2.90 10*3/uL Normal 1.60-7.60 [facility] Comment on above: Performed By: #### L [id number] ####[facility] ([facility])[address] [place] [address] Neutrophils/100 WBC (Bld) 63.8 % Normal 40.0-72.0 [facility] Comment on above: Performed By: #### L [id number] ####[facility] ([facility] [place] [address] NRBC (PER 100 WBCS) BY AUTOMATED COUNT 0.0 % Normal 0 [facility] Comment on above: Performed By: #### L [id number] ####[facility] (BEAKER)[address] [place] [address] PLATELETS (10*3/UL) IN BLOOD AUTOMATED COUNT 134 10*3/uL Low 150-400 [facility] Comment on above: Performed By: #### L [id number] ####[facility] (BEAKER)[address] [place] [address] RBC (Bld) [#/Vol] 3.74 10*6/uL Low 4.20-5.70 [facility] Comment on above: Performed By: #### L [id number] ####[facility] (BEAKER)[address] [place] [address] WBC (Bld) [#/Vol] 4.55 10*3/uL Normal 4.00-10.60 [facility] Comment on above: Performed By: #### L [id number] ####[facility] ([facility] [place] [address] HPon 02-27-2024 HP Normal [facility] POTASSIUM, WHOLE BLOODon Potassium [Moles/Vol] 3.4 mmol/L Low 3.5-5.1 [facility] Comment on above: Performed By: #### P OTASSIUM, WHOLE BLOOD ####[facility] [id number] [facility] [place] [address] [place] SODIUM, WHOLE BLOODon 2023 SODIUM, WHOLE BLOOD 135 Low 136-145 [facility] Comment on above: Performed By: #### S ODIUM, WHOLE BLOOD ####[facility]PIR[facility] [id number] [address] [facility] [place] [address] [place] TROPONIN Ion 02-27-2024 Troponin I.cardiac [Mass/Vol] 0.04 ng/mL Normal 0.00-0.04 [facility] Comment on above: Performed By: #### L [id number] ####[facility] (BEAKER)[address] [place] [address] Troponin I.cardiac [Mass/Vol] 0.02 ng/mL Normal 0.00-0.04 [facility] Comment on above: Performed By: #### L [id number] ####[facility] (BEAKER)[address] [place] [address] Troponin I.cardiac [Mass/Vol] 0.01 ng/mL Normal 0.00-0.04 [facility] Comment on above: Performed By: #### L [id number] ####[facility] ([facility])[address] [facility] [place] [address] Troponin I.cardiac [Mass/Vol] 0.01 ng/mL Normal 0.00-0.04 [facility] Comment on above: Performed By: #### L [id number] ####[facility] ([facility])[address] [facility] [place] [address] Troponin I.cardiac [Mass/Vol] 0.02 ng/mL Normal 0.00-0.04 [facility] Comment on above: Performed By: #### L [id number] ####[facility] ([facility])[address] [facility] [place] [address] Troponin I.cardiac [Mass/Vol] 0.01 ng/mL Normal 0.00-0.04 [facility] Comment on above: Performed By: #### L [id number] ####[facility] ([facility])[address] [facility] [place] [address] 30on 02-26-2024 30 The patient is Moderately Stable - Low risk of patient condition declining or worsening The patient's goals for the shift include The clinical goals for the shift include Over the shift, the patient did not make progress toward the following goals. Normal [facility] ANTI-XA (HEPARIN LEVEL)on HEPARIN UNFRACTIONATED (U/ML) IN PPP BY CHROMOGENIC METHOD 0.14 IU/mL Invalid Interpretation Code 0.3-0.7 [facility] Comment on above: Result Comment: Paton roxaban and Apixaban will interfere with the anti Xa assay used to monitor UFH and LMWH. Performed By: #### L [id number] ####[facility] ([facility])[address] [facility] [place] [address] HEPARIN UNFRACTIONATED (U/ML) IN PPP BY CHROMOGENIC METHOD <0.10 Invalid Interpretation Code 0.3-0.7 [facility] Comment on above: Result Comment: Paton roxaban and Apixaban will interfere with the anti Xa assay used to monitor UFH and LMWH. Performed By: #### L [id number] ####[facility] ([facility])[address] [place] [address] APOLIPOPROTEIN B-100on 02-25 Magnesium [Mass/Vol] 50 mg/dL Low 66-133 [facility] Comment on above: Result Comment: REFE RENCE INTERVAL: Apolipoprotein BA desirable fasting serum Apo B concentration for the preventionof atherosclerotic cardiovascular disease in adults is less than90 mg/dL. A fasting serum Apo B concentration of 130 mg/dL orgreater corresponds to a LDL cholesterol concentration greaterthan 160 mg/dL and constitutes a risk enhancing factor foratherosclerotic cardiovascular disease in adults.Performed By: [employer] [place], [place] [address] Director: Josh Olvera MD, PhDCLIA Number: [id number] Performed By: #### L [id number] ####[facility] ([facility])[address] [place] [address] APTTon 02-26-2024 ACTIVATED PARTIAL THROMBOPLASTIN TIME IN PPP BY COAGULATION ASSAY 32.6 Seconds Normal 25.0-35.0 [facility] Comment on above: Result Comment: Clin ical significance of the APTT is questionable in the presence of heparin. Performed By: #### L [id number] ####[facility] ([facility])[address] [place] [address] B-TYPE NATRIURETIC PEPTIDEon 02-26-2024 Natriuretic peptide B (Bld) [Mass/Vol] 321 pg/mL High 0-100 [facility] Comment on above: Performed By: #### L [id number] ####[facility] ([facility])[address] [place] [address] CBC WITH AUTO DIFFERENTIALon 02-26-2024 Basophils (Bld) [#/Vol] 0.03 10*3/uL Normal 0.00-0.20 [facility] Comment on above: Performed By: #### L [id number] ####[facility] ([facility])[address] [place] [address] Basophils/100 WBC (Bld) 0.5 % Normal 0.0-1.0 [facility] Comment on above: Performed By: #### L [id number] ####[facility] ([facility])[address] [place] [address] Eosinophils (Bld) [#/Vol] 0.04 10*3/uL Normal 0.00-0.50 [facility] Comment on above: Performed By: #### L [id number] ####[facility] ([facility])[address] [place] [address] Eosinophils/100 WBC (Bld) 0.6 % Normal 0.0-6.0 [facility] Comment on above: Performed By: #### L [id number] ####[facility] ([facility])[address] [place] [address] Erythrocyte distribution width (RBC) [Ratio] 12.9 % Normal 11.5-15.0 [facility] Comment on above: Performed By: #### L [id number] ####[facility] ([facility])[address] [place] [address] ERYTHROCYTE MEAN CORPUSCULAR HEMOGLOBIN CONCENTRATION (G/DL) BY AUTOMATED 31.2 g/dL Low 32.0-35.0 [facility] Comment on above: Performed By: #### L [id number] ####[facility] ([facility])[address] [place] [address] Hematocrit (Bld) [Volume fraction] 43.6 % Normal 39.0-55.0 [facility] Comment on above: Performed By: #### L [id number] ####[facility] ([facility])[address] [place] [address] Hemoglobin (Bld) [Mass/Vol] 13.6 g/dL Normal 13.0-17.0 [facility] Comment on above: Performed By: #### L [id number] ####[facility] ([facility])[address] [place] [address] Immature granulocytes (Bld) [#/Vol] 0.03 10*3/uL Normal 0.00-0.20 [facility] Comment on above: Performed By: #### L [id number] ####[facility] ([facility])[address] [place] [address] Immature granulocytes/100 WBC (Bld) 0.5 % Normal 0.0-1.0 [facility] Comment on above: Performed By: #### L [id number] ####[facility] ([facility])[address] [place] [address] Lymphocytes (Bld) [#/Vol] 0.52 10*3/uL Low 1.20-4.00 [facility] Comment on above: Performed By: #### L [id number] ####[facility] ([facility])[address] [place] [address] Lymphocytes/100 WBC (Bld) 8.4 % Low 20.0-45.0 [facility] Comment on above: Performed By: #### L [id number] ####[facility] ([facility])[address] [place] [address] MCH (RBC) [Entitic mass] 32.3 pg Normal 27.0-33.0 [facility] Comment on above: Performed By: #### L [id number] ####[facility] ([facility])[address] [place] [address] MCV (RBC) [Entitic vol] 103.6 fL High 82.0-98.0 [facility] Comment on above: Performed By: #### L [id number] ####[facility] ([facility])[address] [place] [address] Monocytes (Bld) [#/Vol] 0.71 10*3/uL Normal 0.10-1.00 [facility] Comment on above: Performed By: #### L [id number] ####[facility] ([facility])[address] [place] [address] Monocytes/100 WBC (Bld) 11.5 % Normal 5.0-12.0 [facility] Comment on above: Performed By: #### L [id number] ####[facility] ([facility])[address] [place] [address] Neutrophils (Bld) [#/Vol] 4.86 10*3/uL Normal 1.60-7.60 [facility] Comment on above: Performed By: #### L [id number] ####[facility] ([facility])[address] [place] [address] Neutrophils/100 WBC (Bld) 78.5 % High 40.0-72.0 [facility] Comment on above: Performed By: #### L [id number] ####[facility] ([facility])[address] [place] [address] NRBC (PER 100 WBCS) BY AUTOMATED COUNT 0.0 % Normal 0 [facility] Comment on above: Performed By: #### L [id number] ####[facility] ([facility])[address] [place] [address] PLATELETS (10*3/UL) IN BLOOD AUTOMATED COUNT 153 10*3/uL Normal 150-400 [facility] Comment on above: Performed By: #### L [id number] ####[facility] ([facility])[address] [place] [address] RBC (Bld) [#/Vol] 4.21 10*6/uL Normal 4.20-5.70 [facility] Comment on above: Performed By: #### L [id number] ####[facility] ([facility])[address] [place] [address] WBC (Bld) [#/Vol] 6.19 10*3/uL Normal 4.00-10.60 [facility] Comment on above: Performed By: #### L [id number] ####[facility] ([facility])[address] [place] [address] CKon 02-26-2024 CREATINE KINASE (U/L) IN SER/PLAS 94.0 U/L Normal 30.0-223.0 [facility] Comment on above: Performed By: #### L [id number] ####[facility] ([facility])[address] [place] [address] COMPREHENSIVE METABOLIC PANE Larry 02-26-2024 Albumin [Mass/Vol] 3.4 g/dL Low 3.5-5.7 [facility] Comment on above: Performed By: #### L [id number] ####[facility] ([facility])[address] [place] [address] ALP [Catalytic activity/Vol] 89 U/L Normal 34-104 [facility] Comment on above: Performed By: #### L [id number] ####[facility] ([facility])[address] [place] [address] ALT [Catalytic activity/Vol] 16 U/L Normal 7-52 [facility] Comment on above: Performed By: #### L [id number] ####[facility] ([facility])[address] [place] [address] Anion gap [Moles/Vol] 9 mmol/L Normal 7-20 [facility] Comment on above: Performed By: #### L [id number] ####[facility] ([facility])[address] [place] [address] AST [Catalytic activity/Vol] 20 U/L Normal 13-39 [facility] Comment on above: Performed By: #### L [id number] ####[facility] ([facility])[address] [place] [address] Bilirubin [Mass/Vol] 1.0 mg/dL Normal 0.3-1.0 [facility] Comment on above: Performed By: #### L [id number] ####[facility] ([facility])[address] [place] [address] Calcium [Mass/Vol] 8.6 mg/dL Normal 8.6-10.3 [facility] Comment on above: Performed By: #### L [id number] ####[facility] ([facility])[address] [place] [address] Chloride [Moles/Vol] 105 mmol/L Normal 98-107 [facility] Comment on above: Performed By: #### L [id number] ####[facility] ([facility])[address] [place] [address] CO2 [Moles/Vol] 30 mmol/L Normal 21-31 [facility] Comment on above: Performed By: #### L [id number] ####[facility] ([facility])[address] [place] [address] Creatinine [Mass/Vol] 0.90 mg/dL Normal 0.70-1.30 [facility] Comment on above: Performed By: #### L [id number] ####[facility] ([facility])[address] [place] [address] GLOMERULAR FILTRATION RATE ML/MIN/1.73 SQ M.PREDICTED 87.4 mL/min/1.73m*2 Normal >60.0 [facility] Comment on above: Result Comment: The [facility]???s estimated glomerular filtration rate (eGFR) will no [...] of individuals. Performed By: #### L [id number] ####[facility] ([facility])[address] [place] [address] Glucose [Mass/Vol] 127 mg/dL High 70-100 [facility] Comment on above: Performed By: #### L [id number] ####[facility] ([facility])[address] [place] [address] Potassium [Moles/Vol] 3.4 mmol/L Low 3.5-5.1 [facility] Comment on above: Performed By: #### L [id number] ####[facility] ([facility])[address] [place] [address] Protein [Mass/Vol] 6.9 g/dL Normal 6.0-8.3 [facility] Comment on above: Performed By: #### L [id number] ####[facility] ([facility])[address] [place] [address] Sodium [Moles/Vol] 141 mmol/L Normal 136-145 [facility] Comment on above: Performed By: #### L [id number] ####[facility] ([facility])[address] [place] [address] Urea nitrogen [Mass/Vol] 14 mg/dL Normal 7-25 [facility] Comment on above: Performed By: #### L [id number] ####[facility] ([facility])[address] [place] [address] UREA NITROGEN/CREATININE (MASS RATIO) IN SER/PLAS 15.6 Normal [facility] Comment on above: Performed By: #### L [id number] ####[facility] ([facility])[address] [place] [address] CONSULTon 02-26-2024 CONSULT Normal [facility] CTA CHEST W IV CONTRASTon CTA CHEST W IV CONTRAST Normal [facility] ETHANOLon 02-26-2024 ETHANOL (MG/DL) IN SER/PLAS <10 Normal [facility] Comment on above: Performed By: #### L [id number] ####[facility] ([facility])[address] [place] [address] ETHANOL CALCULATED (%) Normal [facility] Comment on above: Performed By: #### L [id number] ####[facility] ([facility])[address] [place] [address] HEMOGLOBIN A1Con 02-26-2024 Glucose [Mass/Vol] 88 mg/dL Normal [facility] Comment on above: Performed By: #### L [id number] ####[facility] ([facility])[address] [place] [address] HbA1c (Bld) [Mass fraction] 4.7 % Normal 4.0-6.0 [facility] Comment on above: Performed By: #### L [id number] ####[facility] ([facility])[address] [place] [address] HPon 02-26-2024 HP Normal [facility] LIPID PANELon 02-26-2024 CHOL/HDL 2.5 mg/dL Normal [facility] Comment on above: Performed By: #### L [id number] ####[facility] ([facility])[address] [place] [address] Cholesterol [Mass/Vol] 93 mg/dL Low 120-200 [facility] Comment on above: Performed By: #### L [id number] ####[facility] ([facility])[address] [place] [address] Magnesium [Mass/Vol] 59 mg/dL Normal 40-149 [facility] Comment on above: Result Comment: TRIG LYCERIDE REFERENCE RANGE:20 YEARS AND OLDER CARDIOVASCULAR RISKLESS THAN 150 mg/dL LOW [id number] TO 199 mg/dL BORDERLINE [id number] mg/dL AND GREATER HIGH RISK Performed By: #### L [id number] ####[facility] ([facility])[address] [place] [address] Magnesium [Mass/Vol] 44 mg/dL Normal 0-160 [facility] Comment on above: Performed By: #### L [id number] ####[facility] ([facility])[address] [place] [address] Magnesium [Mass/Vol] 37 mg/dL Normal 23-92 [facility] Comment on above: Performed By: #### L [id number] ####[facility] ([facility])[address] [place] [address] NON HDL CHOL. (LDL+VLDL) 56 Normal [facility] Comment on above: Performed By: #### L [id number] ####[facility] ([facility])[address] [place] [address] TOTAL VLDL-C 12 mg/dL Normal 0-40 [facility] Comment on above: Performed By: #### L [id number] ####[facility] ([facility])[address] [place] [address] LIPOPROTEIN A (LPA)on 2023 Magnesium [Mass/Vol] 10 mg/dL Normal <=29 [facility] Comment on above: Result Comment: Perf ormed By: [employer] [place], [place] [address]Graiucaodn Director: Josh Olvera MD, PhDCLIA Number: [id number] Performed By: #### L [id number] ####[facility] ([facility])[address] [place] [address] MAGNESIUMon 02-26-2024 Magnesium [Mass/Vol] 1.7 mg/dL Low 1.9-2.7 [facility] Comment on above: Performed By: #### L [id number] ####[facility] ([facility])[address] [place] [address] PHOSPHORUSon 02-26-2024 Magnesium [Mass/Vol] 3.7 mg/dL Normal 2.5-5.0 [facility] Comment on above: Performed By: #### L [id number] ####[facility] ([facility])[address] [place] [address] TOXICOLOGY PANEL URINEon AMPHETAMINE+METHAMP HETAMINE SCREEN (PRESENCE) IN URINE Negative Normal Negative [facility] Comment on above: Performed By: #### L [id number] ####[facility] ([facility])[address] [place] [address] BARBITURATES PRESENCE IN URINE BY SCREEN METHOD Negative Normal Negative [facility] Comment on above: Performed By: #### L [id number] ####[facility] ([facility])[address] [place] [address] Benzodiazepines Ql (U) Negative Normal Negative [facility] Comment on above: Performed By: #### L [id number] ####[facility] ([facility])[address] [place] [address] CANNABINOID (PRESENCE) IN URINE BY SCREEN METHOD Negative Normal Negative [facility] Comment on above: Performed By: #### L [id number] ####[facility] ([facility])[address] [place] [address] Cocaine Ql (U) Negative Normal Negative [facility] Comment on above: Performed By: #### L [id number] ####[facility] ([facility])[address] [place] [address] METHADONE (PRESENCE) IN URINE BY SCREEN METHOD Negative Normal Negative [facility] Comment on above: Performed By: #### L [id number] ####[facility] ([facility])[address] [place] [address] OPIATES (PRESENCE) IN URINE BY SCREEN METHOD Negative Normal Negative [facility] Comment on above: Performed By: #### L [id number] ####[facility] ([facility])[address] [place] [address] PHENCYCLIDINE PRESENCE IN URINE BY SCREEN METHOD Negative Normal Negative [facility] Comment on above: Performed By: #### L [id number] ####[facility] ([facility])[address] [place] [address] Propoxyphene Screen Ql (U) Negative Normal Negative [facility] Comment on above: Performed By: #### L [id number] ####[facility] ([facility])[address] [place] [place] [address] TRICYCLIC ANTIDEPRESSANTS (PRESENCE) IN URINE Negative Normal Negative [facility] Comment on above: Performed By: #### L [id number] ####[facility] ([facility])[address] [place] [address] TROPONIN Ion 02-26-2024 Troponin I.cardiac [Mass/Vol] 0.02 ng/mL Normal 0.00-0.04 [facility] Comment on above: Performed By: #### L [id number] ####[facility] ([facility])[address] [place] [address] Troponin I.cardiac [Mass/Vol] 0.02 ng/mL Normal 0.00-0.04 [facility] Comment on above: Performed By: #### L [id number] ####[facility] ([facility])[address] [place] [address] Troponin I.cardiac [Mass/Vol] 0.01 ng/mL Normal 0.00-0.04 [facility] Comment on above: Performed By: #### L [id number] ####[facility] ([facility]ER)[address] [place] [address] TSHon 02-26-2024 THYROTROPIN (MIU/L) IN SER/PLAS BY DETECTION LIMIT <= 0.05 MIU/L 1.59 mIU/L Normal 0.34-5.60 [facility] Comment on above: Performed By: #### L [id number] ####[facility] ([facility])[address] [place] [address] CBC AND AUTO DIFFon 02-22-20 ABSOLUTE BASOPHIL 0.0 X10E9/L Normal 0.0-0.2 [facility] Comment on above: Performed By: #### P INR, 51885-4 #### [facility] ([id number]) [address] [place] [address] #### CBCA, CMP #### [facility] ([id number]) [address] [place] [address] ABSOLUTE NEUTROPHIL 2.3 X10E9/L Normal 1.5-6.6 [facility] Comment on above: Performed By: #### P INR, 49142-2 #### [facility] ([id number]) [address] [place] [address] #### CBCA, CMP #### [facility] ([id number]) [address], [address] [place] [address] Basophils/100 WBC (Bld) 0.7 % Normal [facility] Comment on above: Performed By: #### P INR, 68117-5 #### [facility] ([id number]) [address] [place] [address] #### CBCA, CMP #### [facility] ([id number]) [address] [place] [address] Eosinophils (Bld) [#/Vol] 0.2 10*3/uL Normal 0.0-0.4 [facility] Comment on above: Performed By: #### P INR, 75825-1 #### [facility] ([id number]) [address] [place] [address] #### CBCA, CMP #### [facility] ([id number]) [address], [facility] [address] [place] [address] Eosinophils/100 WBC (Bld) 3.8 % Normal [facility] Comment on above: Performed By: #### P INR, 09810-9 #### [facility] ([id number]) [address] [place] [address] #### CBCA, CMP #### [facility] ([id number]) [address] [place] [address] Erythrocyte distribution width (RBC) [Ratio] 14.3 % Normal 11.5-15.0 [facility] Comment on above: Performed By: #### P INR, 76049-8 #### [facility] ([id number]) [address] [place] [address] #### CBCA, CMP #### [facility] ([id number]) [address] [place] [address] Hematocrit (Bld) [Volume fraction] 42.1 % Normal 39-49 [facility] Comment on above: Performed By: #### P INR, 85334-4 #### [facility] ([id number]) [address] [place] [address] #### CBCA, CMP #### [facility] ([id number]) [address] [place] [address] Hemoglobin (Bld) [Mass/Vol] 13.9 g/dL Normal 13.0-17.0 [facility] Comment on above: Performed By: #### P INR, 03339-8 #### [facility] ([id number]) [address] [place] [address] #### CBCA, CMP #### [facility] ([id number]) [address], [address] [place] [address] Lymphocytes (Bld) [#/Vol] 1.4 10*3/uL Normal 1.0-3.5 [facility] Comment on above: Performed By: #### P INR, 71717-5 #### [facility] ([id number]) [address] [place] [address] #### CBCA, CMP #### [facility] ([id number]) [address], [address] [place] [address] Lymphocytes/100 WBC (Bld) 31.5 % Normal [facility] Comment on above: Performed By: #### P INR, 18708-4 #### [facility] ([id number]) [address] [place] [address] #### CBCA, CMP #### [facility] ([id number]) [address], [address] [place] [address] MCH (RBC) [Entitic mass] 32.8 pg Normal 27-34 [facility] Comment on above: Performed By: #### P INR, 56566-7 #### [facility] ([id number]) [address] [place] [address] #### CBCA, CMP #### [facility] ([id number]) [address], [address] [place] [address] MCHC (RBC) [Mass/Vol] 32.9 g/dL Normal 32-36 [facility] Comment on above: Performed By: #### P INR, 87567-2 #### [facility] ([id number]) [address] [place] [address] #### CBCA, CMP #### [facility] ([id number]) [address], [address] [place] [address] MCV (RBC) [Entitic vol] 100 fL Normal 80-100 [facility] Comment on above: Performed By: #### P INR, 49219-3 #### [facility] ([id number]) [address] [place] [address] #### CBCA, CMP #### [facility] ([id number]) [address] [place] [address] Monocytes (Bld) [#/Vol] 0.5 10*3/uL Normal 0-0.9 [facility] Comment on above: Performed By: #### P INR, 95555-2 #### [facility] ([id number]) [address] [place] [address] #### CBCA, CMP #### [facility] ([id number]) [address], [address] [place] [address] Monocytes/100 WBC (Bld) 10.8 % Normal [facility] Comment on above: Performed By: #### P INR, 40729-4 #### [facility] ([id number]) [address] [place] [address] #### CBCA, CMP #### [facility] ([id number]) [address], [address] [place] [address] Neutrophils/100 WBC (Bld) 53.2 % Normal [facility] Comment on above: Performed By: #### P INR, 01180-8 #### [facility] ([id number]) [address] [place] [address] [place] [address] #### CBCA, CMP #### [facility] ([id number]) [address] [facility], [address] [place] [address] Platelet mean volume (Bld) [Entitic vol] 9.8 fL Normal 7-12 [facility] Comment on above: Performed By: #### P INR, 32630-6 #### [facility] ([id number]) [address] [place] [address] #### CBCA, CMP #### [facility] ([id number]) [address] [place] [address], [address] [address] Platelets (Bld) [#/Vol] 164 10*3/uL Normal 150-450 [facility] Comment on above: Performed By: #### P INR, 63165-5 #### [facility] ([id number]) [address] [place] [address]84[address] #### CBCA, CMP #### [facility] ([id number]) [address] [place] [address], [facility] [address] [place] [address] RBC COUNT 4.22 X10E12/L Normal 4.10-5.70 [facility] Comment on above: Performed By: #### P INR, 60629-2 #### [facility] ([id number]) [address] [place] [address] #### CBCA, CMP #### [facility] ([id number]) [address] [place] [address], [address] [place] [address] WBC (Bld) [#/Vol] 4.3 10*3/uL Normal 4.0-11.0 [facility] Comment on above: Performed By: #### P INR, 00570-2 #### [facility] ([id number]) [address] [place] [address] #### CBCA, CMP #### [facility] ([id number]) [address], [address] [place] [address] COMPREHENSIVE METABOLIC PANE Larry 02-22-2024 Albumin [Mass/Vol] 3.4 g/dL Normal 3.2-5.3 [facility] Comment on above: Performed By: #### P INR, 87442-1 #### [facility] ([id number]) [address] [place] [address] #### CBCA, CMP #### [facility] ([id number]) [address], [address] [place] [address] ALP [Catalytic activity/Vol] 88 U/L Normal 39-130 [facility] Comment on above: Performed By: #### P INR, 50209-0 #### [facility] ([id number]) [address] [place] [address] #### CBCA, CMP #### [facility] ([id number]) [address], [address] [place] [address] ALT [Catalytic activity/Vol] 15 U/L Normal 0-40 [facility] Comment on above: Performed By: #### P INR, 69358-7 #### [facility] ([id number]) [address] [place] [address] #### CBCA, CMP #### [facility] ([id number]) [address], [address] [place] [address] Anion gap [Moles/Vol] 8 mmol/L Normal 5-15 [facility] Comment on above: Performed By: #### P INR, 42643-7 #### [facility] ([id number]) [address] [place] [address] 23599 #### CBCA, CMP #### [facility] ([id number]) [address] [place] [address] AST [Catalytic activity/Vol] 21 U/L Normal 0-41 [facility] Comment on above: Performed By: #### P INR, 63122-1 #### [facility] ([id number]) [address] [place] [address] #### CBCA, CMP #### [facility] ([id number]) [address], [address] [place] [address] Bilirubin [Mass/Vol] 0.5 mg/dL Normal 0.3-1.2 [facility] Comment on above: Performed By: #### P INR, 25769-0 #### [facility] ([id number]) [address] [place] [address] #### CBCA, CMP #### [facility] ([id number]) [address], [address] [place] [address] Calcium [Mass/Vol] 8.9 mg/dL Normal 8.5-10.5 [facility] Comment on above: Performed By: #### P INR, 01965-0 #### [facility] ([id number]) [address] [place] [address] #### CBCA, CMP #### [facility] ([id number]) [address], [address] [place] [address] Chloride [Moles/Vol] 109 mmol/L Normal 98-109 [facility] Comment on above: Performed By: #### P INR, 41113-9 #### [facility] ([id number]) [address] [place] [address] 269[address] #### CBCA, CMP #### [facility] ([id number]) [address], [address] [place] [address] CO2 [Moles/Vol] 26 mmol/L Normal 22-32 [facility] Comment on above: Performed By: #### P INR, 29531-4 #### [facility] ([id number]) [address] [place] [address] #### CBCA, CMP #### [facility] ([id number]) [address], [address] [place] [address] Creatinine [Mass/Vol] 0.80 mg/dL Normal 0.60-1.30 [facility] Comment on above: Result Comment: METH OD TRACEABLE TO IDMS STANDARD Performed By: #### P INR, 94229-3 #### [facility] ([id number]) [address] [place] [address]99[address] #### CBCA, CMP #### [facility] ([id number]) [address], [address] [place] [address] eGFR (CKD-EPI) NON-RACE DEPENDENT >90 Normal >59 [facility] Comment on above: Result Comment: Reported eGFR is based on the CKD-EPI 2020 equation that does not use a race coefficient. Performed By: #### P INR, 56052-9 #### [facility] ([id number]) [address] [place] [address] #### CBCA, CMP #### [facility] ([id number]) [address] [place] [address] Glucose [Mass/Vol] 106 mg/dL High 65-99 [facility] Comment on above: Performed By: #### P INR, 87838-5 #### [facility] ([id number]) [address] [place] [address] 22376 #### CBCA, CMP #### [facility] ([id number]) [address], [address] [place] [address] Potassium [Moles/Vol] 3.4 mmol/L Low 3.5-5.0 [facility] Comment on above: Performed By: #### P INR, 91243-1 #### [facility] ([id number]) [address] [place] [address] #### CBCA, CMP #### [facility] ([id number]) [address], [address] [place] [address] Protein [Mass/Vol] 6.8 g/dL Normal 6.0-8.0 [facility] Comment on above: Performed By: #### P INR, 70778-2 #### [facility] ([id number]) [address] [place] [address] 19[address] #### CBCA, CMP #### [facility] ([id number]) [address], [address] [place] [address] Sodium [Moles/Vol] 143 mmol/L Normal 134-146 [facility] Comment on above: Performed By: #### P INR, 24127-0 #### [facility] ([id number]) [address] [place] [address] 22575 #### CBCA, CMP #### [facility] ([id number]) [address], [address] [place] [address] Urea nitrogen [Mass/Vol] 15 mg/dL Normal 5-27 [facility] Comment on above: Performed By: #### P INR, 30835-6 #### [facility] ([id number]) [address] [place] [address] 33754 #### CBCA, CMP #### [facility] ([id number]) [address], [address] [place] [address] PROTIME AND INRon 02-22-2024 INR Coag (PPP) [Relative time] 1.2 {INR} High 0.8-1.1 [facility] Comment on above: Performed By: #### P INR, 66051-2 #### [facility] ([id number]) [address] [place] [address] 46876 #### CBCA, CMP #### [facility] ([id number]) [address] [place] [address] PT Coag (PPP) [Time] 14.1 s High 9.8-13.2 [facility] Comment on above: Result Comment: NEW REFERENCE RANGE Performed By: #### P INR, 61585-6 #### [facility] ([id number]) [address] [place] [address]44 #### CBCA, CMP #### [facility] ([id number]) [address] [place] [address] aPTT Coag (PPP) [Time]on aPTT Coag (Bld) [Time] 39 s High 26-37 [facility] Comment on above: Result Comment: NEW REFERENCE RANGE Performed By: #### P INR, 36269-3 #### [facility] ([id number]) [address] [place] [address] 24198 #### CBCA, CMP #### [facility] ([id number]) [address] [place] [address] NURSNOTEon 02-19-2024 NURSNOTE Normal [facility] HPon 02-09-2024 HP Normal [facility] 36on 02-08-2024 36 Normal [facility] Encounters Encounter Date Encounter Type Care Provider Facility [facility]: [facility]: 05-21-2024 End: 05-21-2024 ambulatory [facility] Start: 05-21-2024 End: 05-21-2024 ambulatory [facility] Start: 05-15-2024 End: 05-15-2024 ambulatory Kelvin Langston Facility:[facility] Start: 05-15-2024 End[facility] Work Phone: [facility] Start: 05-06-2024 ambulatory [facility] Start: 05-06-2024 Encounter for preprocedural cardiovascular examination [facility] Start: 05-06-2024 ambulatory [facility] Start: 04-30-2024 End: 04-30-2024 ambulatory [facility] Start: 04-24-2024 End: 04-24-2024 ambulatory [facility] Start: 04-19-2024 End: 04-19-2024 [facility] Start: 04-02-2024 End: 04-03-2024 ambulatory [facility] Start: 03-13-2024 End: 03-14-2024 ambulatory [facility] Start: 03-05-2024 Evaluation and manag ement of inpatient [facility] Start: 03-01-2024 Evaluation and manag ement of inpatient [facility] Start: 02-28-2024 Evaluation and manag ement of inpatient [facility] Start: 02-28-2024 Evaluation and manag ement of inpatient [facility] Start: 02-27-2024 Evaluation and manag ement of inpatient [facility] Start: 02-27-2024 Evaluation and manag ement of inpatient [facility] Start: 02-26-2024 Evaluation and manag ement of inpatient [facility] Start: 02-26-2024 Evaluation and manag ement of inpatient [facility] Start: 02-26-2024 Evaluation and manag ement of inpatient [facility] Start: 02-26-2024 End: 02-26-2024 ambulatory [facility] Start: 02-26-2024 End: 03-06-2024 Evaluation and management of inpatient [facility] Start: 02-22-2024 End: 02-22-2024 [facility] Start: 02-09-2024 End: 02-09-2024 ambulatory [facility] Start: 02-09-2024 End: 02-09-2024 ambulatory [facility] Start: 02-09-2024 End: 02-09-2024 ambulatory [facility] Start: 01-10-2024 End: 01-10-2024 ambulatory [facility] Start: 12-29-2023 ambulatory Nova Zacarias. Lue Facility:[facility] Start: 12-26-2023 End: 12-26-2023 ambulatory ZAYDA LEUNG Facility:[facility] Start: 12-26-2023 End: 12-26-2023 Patient encounter procedure ZAYDA LEUNG [facility] Start: 12-19-2023 ambulatory Nova M. Lue Facility:[facility] [place] Start: 12-12-2023 End: 12-13-2023 ambulatory Nova M. Lue Facility:CD:[id number] Start: 12-12-2023 End: 12-12-2023 ambulatory Nova M. Lue Facility:[id number] Procedures Date Procedure Procedure Detail Performing Clinician Start: 04-24-2024 Follow-up visit OBI EKW AMADOU Start: 04-02-2024 Follow-up visit OBI EKW AMADOU Start: 03-13-2024 Follow-up visit OBI EKW AMADOU Start: 02-09-2024 Follow-up visit OBI EKW AMADOU Start: 01-10-2024 Follow-up visit OBI EKW AMADOU Plan of Treatment Date Care Activity Detail Author Start: 05-15-2024 Bacteria identified in Urine by Culture Urine Culture [facility] Start: 05-15-2024 Urine culture [facility] Payers Date Payer Category Payer Self-pay 2021 Unknown [id number] 1945 Unknown [id number] 2.16.8 [id number] 1945 Unknown [id number] 2.16.8 [id number] 1945 Unknown [id number] 2.16.8 [id number] 1945 Unknown [id number] 2.16.8 [id number] 1945 Unknown [id number] 2.16.8 [id number] 1945 Unknown [id number] 2.16.8 [id number] Unknown [id number] 2.16.8 [id number] Social History Date Type Detail Facility Tobacco smoking status No Smokin g Status Entered [facility] Sex Assigned At Male [facility] Tobacco smoking stat us NHIS Unknown if ever smoked [facility] Work Phone: Start: 05-16-2024 Sex Male (finding) [facility] Start: 1945 Sex Assigned At Male F [facility] Clinical Notes 01-10-2024 to 05-21-2024 Note Date & Type Note Facility 05-21-2024 [facility] 05[facility]21-2024 [facility] 04-24-2024 [facility] 04-24-2024 [facility] 04-19-2024 [facility] 04-02-2024 [facility] 04-02-2024 [facility] 03-13-2024 [facility] 03-06-2024 [facility] 03-06-2024 [facility] 03[facility]06-2024 [facility] 03-06-2024 [facility] 03-05-2024 [facility] 03-05-2024 [facility] 03-05-2024 [facility] 03-05-2024 [facility] 03-05-2024 [facility] 03-04-2024 [facility] 03-04-2024 [facility] 03-04-2024 Note Physical Therapy PM Cancellation note Monday03/04/2024 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 Attempted time : 14:08-14:10 [facility] 03-04-2024 [facility] 03-04-2024 [facility] 03-04-2024 [facility] 03-03-2024 [facility] 03-03-2024 Note Sent updates to Lino conn at the [place]. [facility] 03-02-2024 [facility] 03-02-2024 [facility] 03-02-2024 [facility] 03-02-2024 [facility] 03-01-2024 [facility] 03-01-2024 [facility] 03-01-2024 [facility] 03-01-2024 [facility] 02-29-2024 [facility] 02-29-2024 [facility] 02-29-2024 [facility] 02-29-2024 [facility] 02-29-2024 [facility] 02-29-2024 [facility] 02-29-2024 [facility] 02[facility]28-2024 [facility] 02-28-2024 [facility] 02-28-2024 Note Physical Therapy Patient medically unstable, not appropriate for PT evaluation. Will follow up and evaluate as appropriate. Kuldeep Garces PT, DPT [facility] 02-28-2024 Note Occupational Therapy Name: Neptali Reeves Date of : 1945 Today's Date: 02/28/24 Pt is unable to be seen for therapy at this time secondary to Medically unstable per nsg . Check No Charge Time attempted: 908 [facility] 02-28-2024 Note Discharge Planning U pdate: 0906 Attempted to see patient but was unsuccessful as patient is currently having severe difficulty breathing & talking so they may possible be intubated soon if needed. OTM to follow. [facility] 02-28-2024 [facility] 02-28-2024 [facility] 02-27-2024 [facility] 02-27-2024 [facility] 02-27-2024 [facility] 02-27-2024 [facility] 02-26-2024 [facility] 02-26-2024 [facility] 02-09-2024 [facility] 01-10-2024 [facility] 01-10-2024 [facility] Evaluation + Plan note No data available for this section [facility] Evaluation note No assessment inform ation [facility] Work Phone: Hospital Discharge instructions No data available for this section [facility] Progress note No data available for this section [facility] Summary Purpose Family History No Family History Records Found Advance Directives No Advanced Directives Records Found Advance Directive Response Recorded Date/ Time Advance Directives No May 15, 2024 1:27pm Additional Source Comments Patient Care team informatio n (unrecognized section and content) Team Status: Inactive Member Role Status Dates Kelvin Langston MD Attending Provider Active Start: May 15, 2024 End: May 15, 2024 (unrecognized sect ion and content) No Status Records FoundNo Status Records FoundNo Status Records FoundNo Status Records Found INFORMATION SOURCE (unrecogn ized section and content) DATE CREATED AUTHOR 01/03/2024 [facility] DATE CREATED AUTHOR AUTHOR'S ORGANIZ ATION 02/25/2024 [facility] DATE CREATED AUTHOR AUTHOR'S ORGANIZ ATION 05/24/2024 [facility] DATE CREATED AUTHOR AUTHOR'S ORGANIZ ATION 06/02/2024 [facility] Goals (unrecognized section and content) Goals may be documented in a n alternate section FOR RECORDS PERTAINING TO PATIENTS WHO ARE [...] BE BASED ON THE PRIMARY CLINICAL RECORDS. [employer] provides no warranty or guarantee of the accuracy or completeness of information in this document.
[2024-06-17 17:29] LABS: Basophils Percent Auto 0.8 % (0.2-2.0); Eosinophils Absolute Auto 0.2 10^3/uL (0.0-0.7); Eosinophils Percent Auto 3.3 % (0.9-7.0); Hematocrit 41.7 % (42.0-54.0); Hemoglobin 13.6 g/dL (14.0-18.0); Immature Granulocytes Abs Auto 0.03 10^3/uL (0.00-0.03); Immature Granulocytes Pct Auto 0.6 % (0.0-0.5); Lymphocytes Absolute Auto 1.3 10^3/uL (1.2-3.8); Lymphocytes Percent Auto 25.9 % (20.5-60.0); Mean Corpuscular HGB Conc 32.6 g/dL (29.9-35.2); Mean Corpuscular Hemoglobin 31.6 pg (25.9-34.0); Mean Corpuscular Volume 96.8 fL (80.0-94.0); Mean Platelet Volume 11.4 fL (9.5-13.5); Monocytes Absolute Auto 0.5 10^3/uL (0.3-0.8); Monocytes Percent Auto 10.1 % (1.7-12.0); Neutrophils Absolute Auto 3.1 10^3/uL (1.4-6.5); Neutrophils Percent Auto 59.3 % (43.0-75.0); Platelet Count 122 10^3/uL (150-450); Red Blood Count 4.31 10^6/uL (4.70-6.10); Red Cell Distribution Width 13.9 % (11.0-15.0); White Blood Count 5.1 10^3/uL (4.0-11.0)
[2024-06-17 17:44] LABS: INR 1.16; Partial Thromboplastin Time 29.1 sec (22.3-36.2); Prothrombin Time 12.1 sec (9.0-11.6)
[2024-06-17 17:50] LABS: Alanine Aminotransferase 19 U/L (16-63); Albumin Globulin Ratio 0.8; Alkaline Phosphatase 110 U/L (46-116); Anion Gap 11.9; Aspartate Amino Transferase 21 U/L (15-37); BUN Creatinine Ratio 14.8; Bilirubin Total 0.6 mg/dL (0.2-1.0); Calcium 8.9 mg/dL (8.5-10.1); Carbon Dioxide 28.5 mmol/L (21.0-32.0); Chloride 104 mmol/L (98-107); Estimated GFR (African America >60 (>=60 mL/min/1.73m^2); Estimated GFR (Non-African Ame >60 (>=60 mL/min/1.73m^2); Globulin 3.8 g/dL; Glucose 93 mg/dL (74-106); Potassium 3.4 mmol/L (3.5-5.1); Sodium 141 mmol/L (136-145); Total Protein 6.8 g/dL (6.4-8.2)
== END 2024-06-17 16:52 | disposition home or self-care (01) ==
PROVIDERS: PCP Family Medicine; Visit Provider Urology
DX: N20.0 Calculus of kidney (principal); I25.10 Atherosclerotic heart disease of native coronary artery without angina pectoris; I25.2 Old myocardial infarction; I47.10 Supraventricular tachycardia, unspecified; N32.89 Other specified disorders of bladder; N28.89 Other specified disorders of kidney and ureter
CPT/HCPCS: 36415; 80053; 85025; 85610; 85730; 87086

== ENCOUNTER 2024-08-28 16:17 | Outpatient (OUT) | payer MEDICARE, SELFPAY ==
[2024-08-28 16:55] LABS: Basophils Absolute Auto 0.1 10^3/uL (0.0-0.1); Basophils Percent Auto 0.8 % (0.2-2.0); Eosinophils Absolute Auto 0.3 10^3/uL (0.0-0.7); Hematocrit 40.2 % (42.0-54.0); Hemoglobin 12.7 g/dL (14.0-18.0); Immature Granulocytes Abs Auto 0.02 10^3/uL (0.00-0.03); Immature Granulocytes Pct Auto 0.3 % (0.0-0.5); Lymphocytes Absolute Auto 1.5 10^3/uL (1.2-3.8); Lymphocytes Percent Auto 22.4 % (20.5-60.0); Mean Corpuscular HGB Conc 31.6 g/dL (29.9-35.2); Mean Corpuscular Hemoglobin 30.9 pg (25.9-34.0); Mean Corpuscular Volume 97.8 fL (80.0-94.0); Mean Platelet Volume 10.2 fL (9.5-13.5); Monocytes Absolute Auto 0.6 10^3/uL (0.3-0.8); Monocytes Percent Auto 8.6 % (1.7-12.0); Neutrophils Absolute Auto 4.2 10^3/uL (1.4-6.5); Neutrophils Percent Auto 63.9 % (43.0-75.0); Platelet Count 174 10^3/uL (150-450); Red Blood Count 4.11 10^6/uL (4.70-6.10); Red Cell Distribution Width 16.5 % (11.0-15.0); White Blood Count 6.5 10^3/uL (4.0-11.0)
[2024-08-28 17:29] LABS: INR 1.13; Partial Thromboplastin Time 24.4 sec (22.3-36.2); Prothrombin Time 11.8 sec (9.0-11.6)
[2024-08-28 17:40] LABS: Alanine Aminotransferase 29 U/L (16-63); Albumin Globulin Ratio 0.7; Albumin Level 2.8 g/dL (3.4-5.0); Alkaline Phosphatase 118 U/L (46-116); Anion Gap 8.7; Aspartate Amino Transferase 32 U/L (15-37); BUN Creatinine Ratio 12.7; Bilirubin Total 0.5 mg/dL (0.2-1.0); Chloride 110 mmol/L (98-107); Estimated GFR (African America >60 (>=60 mL/min/1.73m^2); Estimated GFR (Non-African Ame 60 (>=60 mL/min/1.73m^2); Globulin 3.9 g/dL; Glucose 93 mg/dL (74-106); Potassium 3.7 mmol/L (3.5-5.1); Sodium 145 mmol/L (136-145); Total Protein 6.7 g/dL (6.4-8.2)
== END 2024-08-28 16:18 | disposition home or self-care (01) ==
PROVIDERS: PCP Family Medicine; Visit Provider Urology
DX: I48.0 Paroxysmal atrial fibrillation (principal); N20.0 Calculus of kidney; N28.89 Other specified disorders of kidney and ureter
CPT/HCPCS: 36415; 80053; 84439; 84443; 85025; 85610; 85730

== ENCOUNTER 2024-08-28 16:21 | Outpatient (OUT) | payer MEDICARE, SELFPAY ==
[2024-08-28 17:37] LABS: Free T4 1.46 ng/dL (0.76-1.46)
[2024-08-28 17:54] LABS: Thyroid Stimulating Hormone 2.655 uIU/mL (0.358-3.740)
== END 2024-08-28 16:22 | disposition home or self-care (01) ==
LOC: LAB 16:22
PROVIDERS: PCP Family Medicine
DX: I48.0 Paroxysmal atrial fibrillation (principal)
CPT/HCPCS: 36415; 84439; 84443

== ENCOUNTER 2024-08-29 16:27 | Outpatient (REF) | payer MEDICARE, SELFPAY | END 2024-08-29 16:28 | disposition home or self-care (01) | LOC: LAB 16:27 | PROVIDERS: PCP Family Medicine; Visit Provider Urology | DX: N20.0 Calculus of kidney (principal) | CPT/HCPCS: 87086 ==

== ENCOUNTER 2024-11-11 16:35 | Outpatient (OUT) | payer MEDICARE, SELFPAY ==
[2024-11-11 17:48] LABS: Anion Gap 9.6; BUN Creatinine Ratio 12.7; Calcium 9.3 mg/dL (8.5-10.1); Chloride 104 mmol/L (98-107); Estimated GFR (African America 42 (>=60 mL/min/1.73m^2); Estimated GFR (Non-African Ame 35 (>=60 mL/min/1.73m^2); Glucose 94 mg/dL (74-106); Sodium 144 mmol/L (136-145)
[2024-11-11 18:04] LABS: Potassium 2.6 mmol/L (3.5-5.1)
== END 2024-11-11 16:36 | disposition home or self-care (01) ==
LOC: LAB 16:36
PROVIDERS: PCP Family Medicine; Visit Provider Nurse Practitioner Family
DX: I50.23 Acute on chronic systolic (congestive) heart failure (principal)
CPT/HCPCS: 36415; 80048; 83880

== ENCOUNTER 2024-11-18 09:38 | Outpatient (OUT) | payer MEDICARE, SELFPAY ==
--- OUTSIDE RECORDS SUMMARY | 2024-11-12 15:40 | XMS_ITS | Encounter Summary ---
Author Organization [facility] Address [address] [place] [address] Care Team Providers Care Starch Cooker Name Role Phone Mere Gerber CNP Primary Care Provider [phone] Reason for Visit * Reason Comments Congestive Heart Failure Encounter Details Date Type Department Care Team (Late st Contact Info) Description 11/12/2024 3:40 PM EDT Office Visit [facility] [address] [place] [address] Eliana Hubbard CNP [address] [place] [address] Acute on chronic systolic heart failure (CMS/HCC) (Primary Dx); Cardiac arrest (CMS/HCC); Hypokalemia; ICD (implantable cardioverter-defibrill ator) in place; Paroxysmal atrial fibrillation (CMS/HCC); Benign hypertensive heart disease with heart failure (CMS/HCC); Mixed hyperlipidemia; Hematuria, unspecified type; Atherosclerosis of wales coronary artery of wales heart without angina pectoris; Impairment of balance; Hypotension due to drugs; Venous insufficiency Social History Tobacco Use Types Packs/Day Years Used Date Smoking Tobacco: Former Cigarettes Smokeless Tobacco: Never Alcohol Use Standard Drinks/Week Comments Not Currently 0 (1 standard drink = 0.6 oz pur e alcohol) [facility] Utilities Answer Date Recorded In the past 12 months has e [employer], gas, oil, or water [employer] threatened to shut off services in your home? No 02/26/2024 Humiliation, Afraid, Rape, and Kick questionnair e Answer Date Recorded Within the last year, have y ou been afraid of your partner or ex-partner? No 02/26/2024 Emotionally Abused Not on file 02/26/2024 Physically Abused Not on file 02/26/2024 Sexually Abused Not on file 02/26/2024 Overall Financial Resource Strain (CARDIA) Answe r Date Recorded How hard is it for you to pa y for the very basics like food, housing, medical care, and heating? Not very hard 02/26/2024 PHQ-2 Answer Date Recorded Patient Health Questionnaire-2 Score 0 02/09/2024 Transportation Answer Date Recorded In the past 12 months, has l ack of transportation kept you from medical appointments or from getting medications? No 02/26/2024 Lack of Transportation (Non-Medical) Not on file 02/26/2024 Housing Stability Vital Sign Answer Morales e Recorded Unable to Pay for Housing in the Last Year Not o n file 02/26/2024 Number of Places Lived in the Last Year Not on f ile 02/26/2024 In the last 12 months, was t here a time when you did not have a steady place to sleep or slept in a longterm (including now)? No 02/26/2024 Hunger Vital Sign Answer Date Recorded Within the past 12 months, y ou worried that your food would run out before you got the money to buy more. Never true 02/26/20 24 Ran Out of Food in the Last Year Not on file 02/26/2024 Sex and Gender Information Value Date Recorded Sex Assigned at Male 02/26/2024 8:29 AM EDT Legal Sex Male 10:29 PM EDT Gender Identity Male 02/26/2024 8:29 AM EDT Sexual Orientation Heterosexual or Straight 02/12 8:29 AM EDT documented as of this encounter Last Filed Vital Signs Vital Sign Reading Time Taken Comments Blood Pressure 88/57 11/12/2024 4:08 PM EDT Pulse 60 11/12/2024 4:08 PM EDT Temperature - - Respiratory Rate - - Oxygen Saturation 94% 11/12/2024 4:08 PM EDT Inhaled Oxygen Concentration - - Weight 101 kg (222 lb) 11/12/2024 4:08 PM EDT Height 182.9 cm (6') 11/12/2024 4:08 PM EDT Body Mass Index 30.11 11/12/2024 4:08 PM EDT documented in this encounter Patient Instructions * Patient Instructions* Eliana Hubbard CNP - 11/12/2024 3:40 PM EDT *We will start some potassium supplement due to his low potassium levels. 2 packets in the AM 1 packet in the evening with dinner -Okay to mix with pudding *Cut Entresto tablets in half to 12/13mg twice daily *Increase lasix to 40mg twice daily for 1 week until we see you in clinic on 11/18/24. *Have labs done prior to 11/18/24 appt. documented in this encounter Progress Notes * Mayra Cerda MA - 11/12/2024 3:40 PM EDT Patient is here for a 2 week follow up. Patient had recent labs. Patient has started Entresto. Patient states he hasn't noticed any change with the Entresto. Patient states he still has a lot of swelling in his legs, patient does get tired and short of breath with walking very far. Patient does fine walking to the bathroom and short distances. Review of Systems Constitutional: Positive for malaise/fatigue. Cardiovascular: Positive for leg swelling. Respiratory: Positive for shortness of breath. * Eliana Hubbard CNP - 11/12/2024 3:40 PM EDT Images from the original note were not included. [facility] SUBJECTIVE Chief Complaint Patient presents with Congestive Heart Failure Neptali Reeves is a 79 y.o. male here for follow-up. HPI PMHx: cardiac arrest/v.fib s/p ICD, HFrEF, ICM, CAD s/p PCI 2007, HTN, HLD, pulm HTN, CKD, PAF 11/12/2024 Patient is here for a 2 week follow up. Patient has started Entresto. Patient states he hasn't noticed any change with the Entresto. Patient states he still has a lot of swelling in his legs, patient does get tired and short of breath with walking very far. Patient does fine walking to the bathroom and short distances. BP at home has been okay per pt's son, not too low. Pt has denied any c/o dizziness/LH. He did have a fall last week. He was reaching down for a can of pop and lost his balance. Denied hitting his head. His leg swelling is unchanged. Denies c/p CP, orthopnea, PND, palpitations, syncope. 10/30/2024 He has worsened leg swelling. He has been taking lasix daily for the last few weeks with no improvement. He is up about 10 lbs since last seen in August,. He has HAGER. He has had issues with hematuria. He has been off of Eliquis since June,. He has been following with urology. They have been doing multiple procedures to try to get ride of a kidney stone. BP has been okay at home. Denies c/o CP, orthopnea, PND, palpitations, dizziness, syncope. 04/24/2024 Patient here for 3 week follow up cardiac arrest s/p ICD, CAD, CHF, and PAF. [id number] doesn't believe he's taking lasix right now. Also hasn't been taking metoprolol because it isn't able to be crushed. He denies chest pain and SOB. He has been feeling well. Leg swelling has been stable. He has PT working with him at home. He notes some HAGER. Denies c/o CP, orthopnea, PND, dizziness/LH, palpitations, syncope. He denies any changes since last seen. He is currently living with his son/daughter in law. He ran out of his medications today - he hasn't taken any medications today. His BP is low, he denies any sx's. Not currently checking BP at home. After his last visit, he was instructed to start spironolactone 12.5mg daily - he has been taking afull tablet of 25mg daily. Drinking 2 bottles powerade a day, 1-2 pops a day. Denies c/o CP, dyspnea, orthopnea, PND, LE edema, dizziness/LH, palpitations, syncope. Still has hematuria and a kidney stone, but has apt with Dr. Langston 04/19. Patient Active Problem List Diagnosis Cardiac arrest ([facility]/HCC) Coronary atherosclerosis Disorder of lipid metabolism Essential hypertension Hypercholesteremia Kidney stone Old myocardial infarction Paroxysmal supraventricular tachycardia 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) Ventricular fibrillation ([facility]/HCC) Chronic systolic heart failure ([facility]/HCC) ICD (implantable cardioverter-defibrillator) in place Paroxysmal atrial fibrillation ([facility]/HCC) Benign hypertensive heart disease with heart failure ([facility]/HCC) Staghorn calculus Kidney stones Fall in home Loose stools Past Medical History: Diagnosis Date Abnormal ECG Acute combined systolic and diastolic heart failure (CMS/HCC) Afib ([facility]/HCC) Arrhythmia Arrhythmia Atrial fibrillation ([facility]/HCC) Bladder infection Cardiac arrest ([facility]/HCC) CHF (congestive heart failure) ([facility]/HCC) Chronic kidney disease Coronary artery disease Cystitis without hematuria DJD (degenerative joint disease) GERD (gastroesophageal reflux disease) H/O heart artery stent History of transfusion Hyperlipidemia Hypertension Intellectual disability Kidney stone Myocardial infarction ([facility]/HCC) Paroxysmal SVT (supraventricular tachycardia) Family History Problem Relation Name Age of Onset Coronary artery disease Mother Cancer Father Cancer Sister Cancer Brother Social History Tobacco Use Smoking status: Former Types: Cigarettes Smokeless tobacco: Never Vaping Use Vaping status: Never Used Substance Use Topics Alcohol use: Not Currently Drug use: Never No Known Allergies OBJECTIVE Visit Vitals BP 88/57 (BP Location: Right arm, Patient Position: Sitting) Pulse 60 Ht 1.829 m (6') Wt 101 kg (222 lb) SpO2 94% BMI 30.11 kg/m² Smoking Status Former BSA 2.27 m² Medications: Current Outpatient Medications: acetaminophen (Tylenol) 500 mg tablet, Take 1,000 mg by mouth every 6 (six) hours if needed., Disp:, Rfl: albuterol 2.5 mg /3 mL (0.083 %) nebulizer solution, Take 2.5 mg by nebulization every 4 (four) hours if needed., Disp: , Rfl: amiodarone (Pacerone) 200 mg tablet, Take 1 tablet (200 mg) by mouth two times daily., Disp: 180 tablet, Rfl: 3 atorvastatin (Lipitor) 80 mg tablet, Take 1 tablet (80 mg) by mouth at bedtime., Disp: 90 tablet, Rfl: 3 carvedilol (Coreg) 3.125 mg tablet, Take 1 tablet (3.125 mg) by mouth two times daily., Disp: 180 tablet, Rfl: 3 cholecalciferol (Vitamin D3) 10 MCG (400 UNIT) tablet, Take 400 Units by mouth in the morning., Disp: , Rfl: clopidogrel (Plavix) 75 mg tablet, TAKE 1 TABLET BY MOUTH EVERY DAY, Disp: 90 tablet, Rfl: 3 dapagliflozin propanediol (Farxiga) 10 mg, Take 1 tablet (10 mg) by mouth once daily as directed for 360 doses., Disp: 90 tablet, Rfl: 3 lidocaine (Lidoderm) 5 % patch, Place 1 patch on the skin in the morning., Disp: , Rfl: memantine (Namenda XR) 7 mg capsule,sprinkle,ER 24hr, Take by mouth in the morning., Disp: , Rfl: sacubitril-valsartan (Entresto) 24-26 mg tablet, Take 1 tablet by mouth two times daily., Disp: 60 tablet, Rfl: 12 spironolactone (Aldactone) 25 mg tablet, Take 0.5 tablets (12.5 mg) by mouth once daily as directed., Disp: 45 tablet, Rfl: 3 apixaban (Eliquis) 5 mg tablet, Take 1 tablet (5 mg) by mouth two times daily. (Patient not taking:Reported on 11/12/2024), Disp: 60 tablet, Rfl: 11 furosemide (Lasix) 40 mg tablet, Take 1 tablet (40 mg) by mouth two times daily., Disp: 90 tablet, Rfl: 3 potassium chloride (Klor-Con) 20 mEq packet, Take 40 mEq by mouth in the morning AND 20 mEq daily with evening meal., Disp: 270 packet, Rfl: 3 Physical Exam Constitutional: Appearance: Normal appearance. He is obese. HENT: Head: Normocephalic and atraumatic. Right Ear: External ear normal. Left Ear: External ear normal. Eyes: Extraocular Movements: Extraocular movements intact. Pupils: Pupils are equal, round, and reactive to light. Neck: Vascular: No carotid bruit. Cardiovascular: Rate and Rhythm: Normal rate and regular rhythm. Pulses: Normal pulses. Heart sounds: Normal heart sounds. Pulmonary: Effort: Pulmonary effort is normal. Breath sounds: Normal breath sounds. Abdominal: General: Bowel sounds are normal. Palpations: Abdomen is soft. Musculoskeletal: General: Normal range of motion. Cervical back: Neck supple. Right lower leg: Edema present. Left lower leg: Edema present. Comments: +3 BLE edema Skin: General: Skin is warm and dry. Neurological: General: No focal deficit present. Mental Status: He is alert and oriented to person, place, and time. Psychiatric: Mood and Affect: Mood normal. Behavior: Behavior normal. Thought Content: Thought content normal. Judgment: Judgment normal. Labs: Documentation on 09/25/2024 Component Date Value Ref Range Status External Fasting Glucose 08/28/2024 93 mg/L Final External Creatinine, Serum 08/28/2024 1.18 mg/mL Final External BUN 08/28/2024 15.0 mg/dL Final External Potassium 08/28/2024 3.7 mmol/L Final External Sodium, serum 08/28/2024 145 mmol/L Final External CO2, total 08/28/2024 30.0 mEq/L Final External Chloride 08/28/2024 110 mmol/L Final External Calcium 08/28/2024 9.0 mg/dL Final External Albumin 08/28/2024 2.8 Final External Protein, total 08/28/2024 6.7 g/dL Final External Alkaline Phosphatase 08/28/2024 118 U/L Final External ALT 08/28/2024 29 U/L Final External AST 08/28/2024 32 U/L Final External Bilirubin,total 08/28/2024 0.5 mg/dL Final External WBC 08/28/2024 6.5 Final External RBC 08/28/2024 4.11 Final External Hematocrit 08/28/2024 40 % Final External Hemoglobin 08/28/2024 12.7 g/dL Final External Platelets 08/28/2024 174 K/uL Final EXT MCV 08/28/2024 97.8 fL Final EXT MCH 08/28/2024 30.9 pg Final EXT MCHC 08/28/2024 31.6 g/dL Final EXT RDW 08/28/2024 16.5 % Final Lab Results Component Value Date BNP 441 (H) 06/26/2024 11/11/24 Cr 1.89, BUN 24, K 2.6, Na 144, eGFR 35 NTproBNP - 360 08/28/2024 Cr 1.18, BUN 151, K 3.7, Na 145, eGFR 60, AST 32, ALT 29 WBC 6.5, hgb 12.7, plt 174 Testing/Procedures: Encounter Date: 02/26/24 ECG 12 lead Result Value Ventricular Rate 98 QRS DURATION 164 QT Interval 418 QTC CALCULATION(BAZETT) 533 R-Shanks -56 T Wave Shanks 35 Impression Atrial fibrillation Right bundle branch block Left anterior fascicular block Bifascicular block Inferior infarct (cited on or before 26-FEB-2024) Abnormal ECG When compared with ECG of 26-FEB-2024 22:01, (unconfirmed) Atrial fibrillation has replaced Sinus rhythm Inverted T waves have replaced nonspecific T wave abnormality in Anterior leads Confirmed by Jaxon Marquez ([id number]) on 02/28/2024 8:00:21 PM Echo 08/09/2024: Conclusion: Left ventricular: Left ventricular appears normal in size. Systolic function is severely decreased with an ejection fraction of 25 to 30%. Grade 1 diastolic dysfunction (impaired relaxation) is present. Lateral E prime is 4.06 cm/s. Medial E prime is 3.96 cm/s. This the study was difficult due to patient's poor history windows. EK02/27/2024 atrial fibrillation, right bundle branch block and left anterior fascicular block, Echo: 02/28/2024 Left Ventricle: The left ventricle is normal size. Global left ventricular systolic function is severely reduced. The EF is 20 % visually. Left ventricular wall thickness is normal. Regional wall motion abnormalities (see diagram). Right Ventricle: The right ventricle is normal in size. Normal right ventricular systolic function.Doppler studies suggest moderately elevated right sided pressures (elevated pulmonary pressure). RVSP 46 mmHg Left Atrium: The left atrium is normal in size. Pericardium: No pericardial effusion. Overall Conclusions: Due to suboptimal imaging Lumason contrast was administered for opacification and better delineation of endocardial borders. RVSP is increased when compared to previous study otherwise no significant change. Echo 02/26/2024 Left Ventricle: The left ventricle is normal size. Global left ventricular systolic function is severely reduced. EF range is estimated at 20 % -25 %. Left ventricular wall thickness is normal. Regional wall motion abnormalities (see diagram). Unable to assess diastolic dysfunction. Right Ventricle: The right ventricle appears normal in size. The right ventricle is poorly seen. Doppler studies suggest mildly elevated right sided pressures. RVSP 35 mmHg Left Atrium: The left atrium is mildly enlarged. Mitral Valve: Mild mitral regurgitation. Tricuspid Valve: Trivial tricuspid regurgitation. Overall Conclusions: No significant valvular abnormalities Due to suboptimal imaging Lumason contrast was administered for opacification and better delineation of endocardial borders. Cardiac cath: 02/27/2024 Final Impression: 1) Elevated pulmonary and right heart pressures with normal left heart pressures 2) Mild coronary artery disease Hemodynamic Data: RA: 8/8/8 mmHg RV: 42/8 mmHg PA: 42/19/26 mmHg PCWP: 11/11/10 mmHg AO: 93/52/69 mmHg CO: 6.46 L/min CI: 3.06 L/min/m2 O2 Sat: PA sat: 73% AO sat: 98% Recommend: 1) Evaluation for pulmonary hypertension EP procedure 03/04/2024 PROCEDURE PERFORMED: 1. Implantation of dual chmaber ICD ([employer]) 2. Ultrasound guided venous access INDICATIONS: 1. Dilated ischemic cardiomyopathy 2. NYHA class II-III ASSESSMENT/PLAN: Diagnoses and all orders for this visit: Acute on chronic systolic heart failure (CMS/HCC) - Magnesium; Future Cardiac arrest (CMS/HCC) - furosemide (Lasix) 40 mg tablet; Take 1 tablet (40 mg) by mouth two times daily. Hypokalemia - potassium chloride (Klor-Con) 20 mEq packet; Take 40 mEq by mouth in the morning AND 20 mEq dailywith evening meal. - Basic metabolic panel; Future ICD (implantable cardioverter-defibrillator) in place Paroxysmal atrial fibrillation (CMS/HCC) Benign hypertensive heart disease with heart failure (CMS/HCC) Mixed hyperlipidemia Hematuria, unspecified type Atherosclerosis of wales coronary artery of wales heart without angina pectoris Impairment of balance Hypotension due to drugs Venous insufficiency Acute on Chronic systolic congestive heart failure, NYHA III-IV Ischemic cardiomyopathy, ejection fraction 25-30% on recent TTE -Currently appears fluid overloaded on exam. He notes he is up 10#. -2 weeks ago we attempted to change lasix to daily 40mg along with adding Entresto. This has not affected his weight, dyspnea or leg swelling. -GDMT: he is hypotensive today at 88/57 (asymptomatic). Will reduce Entresto to 12/13mg BID. Continue coreg 3.125mg BID, farxiga 10mg daily, aldactone 12.5mg daily. -Will increase lasix 40mg to BID. -Follow-up BMP in 1 week. -Consider RHC if renal function continues to decline. Hypokalemia -At 2.6 per labs yesterday -Will start potassium supplement. He does not do well taking pills therefore will use powder packets - 40mEq in the AM, 20mEq in the evening. -Follow-up BMP in 1 week. DEN on Chronic kidney disease -labs 11/11/24: Cr 1.89, BUN 24, K 2.6, Na 144, eGFR 35 -DEN may be due to fluid overload and starting Entresto. Reducing Entresto, increasing lasix and follow-up BMP in 1 week. Cardiac arrest/V-fib 02/26/2024 Status post dual-chamber ICD implant 03/04/2024 -Continue amiodarone 200mg BID and BB -Continue q6 month device checks - device checked today 11/11/24, no events, normal functioning device Coronary artery disease status post PCI of the left circumflex artery in 2007 -Cardiac catheterization 02/27/2024 showed mild mild coronary artery disease with elevated pulmonary and right heart pressures and normal left heart pressures -Denies CP -Continue atorvastatin, Plavix, and carvedilol Moderate pulmonary hypertension -Continue lasix Paroxysmal atrial fibrillation Hematuria Poor balance, high fall risk -RRR On exam -Continue amiodarone, Coreg. Eliquis on hold due to reasons below. -He is having ongoing issues with hematuria along with kidney stones. He also expresses balance issues and concerns for falls. He recently had a fall last week. Discussed the option of an LAAO devicesuch as Watchman as an alternative to long-term anticoagulation. He would like to discuss further with Dr. Kelley. Hypertension Hypotension -Low BP today, asymptomatic, reducing Entresto as noted above -Continue coreg Hyperlipidemia, on atorvastatin Nephrolithiasis - he is following with urology for kidney stone removal Venous insufficiency Follow up in about 1 week (around 11/19/2024). Eliana Hubbard CNP [facility] documented in this encounter Plan of Treatment Upcoming Encounters Date Type Department Care Team (Late st Contact Info) Description 11/18/2024 11:40 AM EDT Office Visit [facility] [address] [place] [address] Eren Johansen CNP [address] [place] [address] 12/09/2024 3:30 PM EDT Office Visit [facility] [address] [place] [place] [address] Phong Kelley MD [address] [facility] [address] [facility] [address] 01/17/2025 11:00 AM EDT Follow-Up [facility] Urology [address] [place] [phone] Tino Langston MD [facility] [facility] [address] [place] [phone] Scheduled Orders Name Type Priority Associated Diagnoses Orde r Schedule Basic metabolic panel Lab Routine Hypokalemia Expected: 11/12/2024 (Approximate), Expires: 11/12/2025 Magnesium Lab Routine Acute on chronic systolic heart failure (CMS/HCC) Expected: 11/12/2024 (Approximate), Expires: 11/12/2025 documented as of this encounter Visit Diagnoses Diagnosis Acute on chronic systolic heart failure (CMS/HCC)- Primary Acute on chronic systolic heart failure Cardiac arrest (CMS/HCC) Cardiac arrest Hypokalemia Hypopotassemia ICD (implantable cardioverter-defibrillator) in place Paroxysmal atrial fibrillation (CMS/HCC) Atrial fibrillation Benign hypertensive heart disease with heart failure (CMS/HCC) Mixed hyperlipidemia Hematuria, unspecified type Atherosclerosis of wales coronary artery of wales heart without angina pectoris Impairment of balance Hypotension due to drugs Other iatrogenic hypotension Venous insufficiency Unspecified venous (peripheral) insufficiency Acute HFrEF (heart failure with reduced ejection fraction) (CMS/HCC)- Primary Hypokalemia Hypopotassemia Paroxysmal atrial fibrillation (CMS/HCC) Atrial fibrillation 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
--- OUTSIDE RECORDS SUMMARY | 2024-11-18 09:43 | XMS_ITS | Encounter Summary ---
Author Organization [facility] Address [address] [place] [address] Care Team Providers Care Cap Maker Name Role Phone Mere Gerber CNP Primary Care Provider [phone] Encounter Details Date Type Department Care Team (Late st Contact Info) Description 08/31/2024 Orders Only [facility] [address] [place] [address] Jg Cason MD [address] [place] [address] Social History Tobacco Use Types Packs/Day Years Used Date Smoking Tobacco: Former Cigarettes Smokeless Tobacco: Never Alcohol Use Standard Drinks/Week Comments Not Currently 0 (1 standard drink = 0.6 oz pur e alcohol) [facility] Utilities Answer Date Recorded In the past 12 months has e [employer], gas, oil, or water [employer] threatened to shut off services in your [...] place to sleep or slept in a senior care (including now)? No 02/26/2024 Hunger Vital Sign [...] AM EDT documented as of this encounter Plan of Treatment Upcoming Encounters Date Type Department Care Team (Late st Contact Info) Description 11/18/2024 11:40 AM EDT Office Visit [place] [address] [place] [address] Eren Johansen, CLAIM PROCESSING SPECIALIST [address] [place] [address] 12/09/2024 3:30 PM EDT Office Visit [facility] [address] [place] [address] Phong Kelley MD [address] [facility] [place] [address] 01/17/2025 11:00 AM EDT Follow-Up [facility] Urology [address] [place] [address] Tino Langston MD [address] [place] [address] Dr [address] [place] [address] documented as of this encounter Procedures Procedure Name Priority Date/Time Associated Diagnosis Comments CARDIAC DEVICE CHECK - REMOTE ALERT - ICD Routine 08/31/2024 12:00 AM EDT documented in this encounter Results * Cardiac device check - Remote alert ICD (08/31/2024 12:00 AM EDT) Anatomical Region Laterality Modality Other 08/31/2024 Jg Cason MD CV IMPLANTABLE CARDIAC DEVICE PROCEDURES Final Result documented in this encounter Visit Diagnoses Not on filedocumented in this encounter Care Teams Cap Maker Relationship Specialty Start Date End Date Mere Gerber CNP [facility], [facility] [place] [address] PCP - General Family Medicine 01/10/24 documented as of this encounter
--- OUTSIDE RECORDS SUMMARY | 2024-11-18 09:43 | XMS_ITS | Encounter Summary ---
Author Organization [facility] Address [address] [place] [address] Care Team Providers Care Strategic Debriefing Specialist Name Role Phone Gloria Quintana WATER MAIN PIPE LAYER Unavailable [phone] Encounter Details Date Type Department Care Team (Late st Contact Info) Description 07/11/2024 Abstract [facility] [address] [place] [id number] Unallocated, [facility] Provider, [address] [place] [address] Social History Tobacco Use Types Packs/Day Years Used Date Smoking Tobacco: Never Assessed Sex and Gender Information Value Date Recorded Sex Assigned at Not on file Legal Sex Male 7:24 PM EDT Gender Identity Not on file Sexual Orientation Not on file documented as of this encounter Plan of Treatment Not on file documented as of this encounter Visit Diagnoses Not on filedocumented in this encounter Care Teams Strategic Debriefing Specialist Relationship Specialty Start Date End Date Gloria Quintana NP [address] [place] [address] PCP - Rigo MITCHELL 10/13/24 documented as of this encounter
--- OUTSIDE RECORDS SUMMARY | 2024-11-18 09:43 | XMS_ITS | Encounter Summary ---
Author Organization [facility] Address [address] [place] [address] Care Team Providers Care Fire Ranger Name Role Phone Mere Gerber CNP Primary Care Provider [phone] Encounter Details Date Type Department Care Team (Late st Contact Info) Description 11/07/2024 Orders Only [facility] Heart at [facility] [address] [place] [address] Kimmy Child MA roof assembler current use of amiodarone (Primary Dx) Social History Tobacco Use Types Packs/Day Years Used Date Smoking Tobacco: Former Cigarettes Smokeless Tobacco: Never Alcohol Use Standard Drinks/Week Comments Not Currently 0 (1 standard drink = 0.6 oz pur e alcohol) [facility] Utilities Answer Date Recorded In the past 12 months has th e electric, gas, oil, or water company threatened to shut off services in your [...] place to sleep or slept in a residential (including now)? No 02/26/2024 Hunger Vital Sign [...] Description 11/18/2024 11:40 AM EDT Office Visit [place] [address] [place] [address] Eren Johansen, VISUAL DESIGN LEAD [address] [place] [address] 12/09/2024 3:30 PM EDT Office Visit [facility] [address] [place] [address] Phong Kelley MD [address] [facility] [address] [facility] [place] [address] 01/17/2025 11:00 AM EDT Follow-Up [facility] Urology [address] [facility] [place] [address] Tino Langston MD [address] [place] [address] Dr [address] [place] [address] Scheduled Orders Name Type Priority Associated Diagnoses Orde r Schedule Pulmonary function testing Spirometry; Body Box (lung volumes, airway resistance, and SVC), DLCO PFT Routine roof assembler current use of amiodarone Expected: 11/07/2024 (Approximate), Expires: 11/07/2025 XR chest 2 views Imaging Routine roof assembler current use of amiodarone Expected: 11/07/2024, Expires: 11/07/2025 documented as of this encounter Visit Diagnoses Diagnosis custodial current use of amiodarone- Primary Acute HFrEF (heart failure with reduced ejection fraction) (CMS/HCC)- Primary Hypokalemia Hypopotassemia Paroxysmal atrial fibrillation (CMS/HCC) Atrial fibrillation 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
--- OUTSIDE RECORDS SUMMARY | 2024-11-18 09:43 | XMS_ITS | Encounter Summary ---
Author Organization [facility] Address [address] [place] [address] Care Team Providers Care Back Hoe Operator Name Role Phone Mere Gerber CNP Primary Care Provider [phone] Encounter Details Date Type Department Care Team (Late st Contact Info) Description 11/12/2024 Orders Only [facility] Heart at [facility] [address] [place] [address] Eliana Hubbard CNP [address] [place] [address] Social History Tobacco Use Types Packs/Day Years Used Date Smoking Tobacco: Former Cigarettes Smokeless Tobacco: Never Alcohol Use Standard Drinks/Week Comments Not Currently 0 (1 standard drink = 0.6 oz pur e alcohol) [facility] Utilities Answer Date Recorded In the past 12 months has health system [employer], gas, oil, or water [employer] threatened to shut off services in your [...] place to sleep or slept in a usp (including now)? No 02/26/2024 Hunger Vital Sign [...] Description 11/18/2024 11:40 AM EDT Office Visit [place] [address] [place] [address] Eren Johansen, BELT WEAVER [address] [place] [address] 12/09/2024 3:30 PM EDT Office Visit [facility] [address] [place] [address] Phong Kelley MD [address] [facility] [place] [address] 01/17/2025 11:00 AM EDT [facility] [address] [facility] [place] [address] Tino Langston MD [address] [place] [address] Dr [address] [place] [address] documented as of this encounter Procedures Procedure Name Priority Date/Time Associated Diagnosis Comments B-TYPE NATRIURETIC PEPTIDE Routine 11/11/2024 2:19 PM EDT BASIC METABOLIC PANEL Routine 11/11/2024 2:19 PM EDT documented in this encounter Results * B-type natriuretic peptide (11/11/2024 2:19 PM EDT) Blood Venous blood specimen / [facility] Final Re sult * Basic metabolic panel (11/11/2024 2:19 PM EDT) Blood Venous blood specimen / Unknown [facility] Hubbard [facility] LAB BLOOD ORDERABLES Final Re sult documented in this encounter Visit Diagnoses Not on filedocumented in this encounter Care Teams Back Hoe Operator Relationship Specialty Start Date End Date Mere Gerber CNP [address] [place] [address], [place] [address] PCP - General Family Medicine 01/10/24 documented as of this encounter
--- OUTSIDE RECORDS SUMMARY | 2024-11-18 09:43 | XMS_ITS | Clinical Summary ---
Author Organization [facility] Address [address] [place] [address] Care Team Providers Care Datastage Architect Name Role Phone Gloria Quintana ROAD TRAFFIC CONTROLLER Unavailable [phone] Social History Tobacco Use Types Packs/Day Years Used Date Smoking Tobacco: Never Assessed Sex and Gender Information Value Date Recorded Sex Assigned at Not on file Legal Sex Male 7:24 PM EDT Gender Identity Not on file Sexual Orientation Not on file Plan of Treatment Health Maintenance Due Date Last Done Comments Pneumococcal Vaccine: 65+ Years (1 of 2 - PCV) 965 Influenza Vaccine (#1) 2025 Insurance [employer] Care Teams Datastage Architect Relationship Specialty Start Date End Date Gloria Quintana NP [address] [place] [address] [address] [place] [address] MYRIAM Sierra MA 10/13/24
--- OUTSIDE RECORDS SUMMARY | 2024-11-18 09:43 | XMS_ITS | Clinical Summary ---
Author Organization [employer] tem Address [id number] [address] [place] [address] Care Team Providers Care Heating Systems Installer Name Role Phone Mere Gerber FICTION AND NONFICTION WRITER PROSE-ACCOUNTANT TAX Primary Care Provider Allergies No known active allergies Medications dapagliflozin propanediol (FARXIGA) 10 mg tablet Take 1 tablet (10 mg total) by mouth in the morning. 4 03/28/20 25 Active clopidogreL (PLAVIX) 75 mg tablet Take 1 tablet (75 mg total) by mouth in the morning. 4 Active carvediloL (COREG) 3.125 mg tablet Take 1 tablet (3.125 mg total) by mouth in the morning and 1 tablet (3.125 mg total) before bedtime. 4 04/30/20 25 Active atorvastatin (LIPITOR) 80 mg tablet Take 1 tablet (80 mg total) by mouth nightly. 4 Active apixaban (ELIQUIS) 5 mg tablet Take 1 tablet (5 mg total) by mouth in the morning and 1 tablet (5 mg total) before bedtime. 4 03/28/20 25 Active amiodarone (PACERONE) 200 mg tablet Take 1 tablet (200 mg total) by mouth in the morning and 1 tablet (200 mg total) before bedtime. 4 03/28/20 25 Active furosemide (LASIX) 40 mg tablet Take 1 tablet (40 mg total) by mouth as needed. 4 04/30/20 25 Active memantine (NAMENDA XR) 21 mg capsule,sprinkle ,ER 24hr Take 1 capsule (21 mg total) by mouth in the morning. 5 Active spironolactone (ALDACTONE) 25 mg tablet Take 0.5 tablets (12.5 mg total) by mouth nightly. 4 03/28/20 25 Active ipratropium-albu teroL (DUONEB) 0.5 mg-3 mg(2.5 mg base)/3 mL nebulizer Inhale 3 mL in the morning and 3 mL at noon and 3 mL in the evening and 3 mL before bedtime. 4 Active acetaminophen (TYLENOL EXTRA STRENGTH) 500 mg tablet Take 2 tablets (1,000 mg total) by mouth every 6 (six) hours as needed for pain. 5 Active lidocaine (LIDODERM) 5 %Indications:Fal l in home, initial encounter Place 1 patch on the skin in the morning. Remove & Discard patch within 12 hours or as directed by MD. 5 Active bisacodyL (DULCOLAX) 5 mg EC tablet Take 1 tablet (5 mg total) by mouth in the morning and 1 tablet (5 mg total) before bedtime. 14 tablet 5 Active sodium phosphates (FLEET) 19-7 gram/118 mL enema Insert 1 enema into the rectum daily as needed (constipation ). 133 mL 5 Active Active Problems Problem Noted Date Diagnosed Date Fall in home, initial encounter 06/29/2024 Immunizations No known immunizations Social History Tobacco Use Types Packs/Day Years Used Date Smoking Tobacco: Former Cigarettes Q uit: 2009 Smokeless Tobacco: Never Tobacco Cessation:Counseling Given: Not Answered Alcohol Use Standard Drinks/Week Comments Not Currently 0 (1 standard drink = 0.6 oz pur e alcohol) [facility] Utilities Answer Date Recorded In the past 12 months has e [employer], gas, oil, or water [employer] threatened to shut off services in your home? No 06/29/2024 PHQ-2 Answer Date Recorded Total Score 2 06/29/2024 PRAPARE - Transportation Answer Date Re corded In the past 12 months, has l ack of transportation kept you from medical appointments or from getting medications? No 06/15 In the past 12 months, has l ack of transportation kept you from meetings, work, or from getting things needed for daily living? No 06/29/2024 Housing Instability Answer Date Recorde d Are you worried or concerned that in the next two months you may not have stable housing that you own, rent or stay in as a part of a household? No 06/29/2024 Childcare Answer Date Recorded Childcare Unknown 10/24/2018 Employment Answer Date Recorded Employment Unknown 10/24/2018 Hunger Screening Answer Date Recorded Within the past 12 months we worried whether our food would run out before we got money to buy more. Never True 07/09/2024 Within the past 12 months th e food we bought just didn't last and we didn't have money to get more. Never True 07/09/2024 Sex and Gender Information Value Date Recorded Sex Assigned at Not on file Legal Sex Male 11:41 AM EDT Gender Identity Not on file Sexual Orientation Not on file Last Filed Vital Signs Vital Sign Reading Time Taken Comments Blood Pressure 96/57 08/09/2024 10:18 AM EDT Pulse 69 08/09/2024 10:18 AM EDT Temperature 36.9 C (98.5 F) 07/09/2024 4:30 PM EST Respiratory Rate 20 07/09/2024 4:30 PM EST Oxygen Saturation 98% 07/09/2024 7:51 PM EST Inhaled Oxygen Concentration - - Weight 98.9 kg (218 lb) 08/09/2024 10:18 AM EDT Height 182.9 cm (6') 08/09/2024 10:18 AM EDT Body Mass Index 29.57 08/09/2024 10:18 AM EDT Plan of Treatment Health Maintenance Due Date Last Done Comments DTaP,Tdap and Td Vaccines (1 - Tdap) 1964 Zoster (Shingles) Vaccine (1 of 2) 08/19/1995 Fall Risk Screening 2010 Influenza Vaccine 01/13/2025 Depression Screening 06/29/2025 06/29/2024 Tobacco Screening 07/09/2025 07/09/2024 Goals Goal Patient Goal Type Associated Problems Recent Progress Patient-Stated? Author <enter goal here> General Yes Julisa Del Toro, RN Note: Evaluation of progress towards goal: home with son and daughter in law Medical Devices Not on file Insurance [facility] MEDICARE Advance Directives * Full Code (Latest Code Status on File) Date Activated Date Inactivated Comments 06/29/2024 2:29 AM 07/04/2024 7:36 PM Care Teams Heating Systems Installer Relationship Specialty Start Date End Date Mere Gerber, FICTION AND NONFICTION WRITER PROSE-ACCOUNTANT TAX [address] [facility], [place] [address] PCP - General Family Medicine 02/22/24
--- OUTSIDE RECORDS SUMMARY | 2024-11-18 09:43 | XMS_ITS | Encounter Summary ---
Author Organization [facility] Address [address] [place] [address] Care Team Providers Care Fisher Trap Name Role Phone Gloria Qunitana PHOTO LAB SPECIALIST Unavailable [phone] Encounter Details Date Type Department Care Team (Late st Contact Info) Description 07/18/2024 Abstract [facility] [address] [place] [address] Unallocated, Noms Provider, [address] [place] [address] Social History Tobacco Use Types Packs/Day Years [...] on filedocumented in this encounter Care Teams Fisher Trap Relationship Specialty Start Date End Date Gloria Quintana NP [address] [place] [address] PCP - Rigo MITCHELL 10/13/24 documented as of this encounter
--- OUTSIDE RECORDS SUMMARY | 2024-11-18 09:43 | XMS_ITS | Clinical Summary ---
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 180 tablet 3 04/02/20 24 025 Active apixaban (Eliquis) 5 mg tabletIndication s:Cardiac arrest (CMS/HCC) Take 1 tablet (5 mg) by mouth two times daily. 60 tablet 11 04/02/20 24 Active Additional Information Patient not taking.Reason: Other, Reported on 11/12/2024 atorvastatin (Lipitor) 80 mg tabletIndication s:Coronary artery disease due to lipid rich plaque Take 1 tablet (80 mg) by mouth at bedtime. 90 tablet 3 04/02/20 24 Active clopidogrel (Plavix) 75 mg tabletIndication s:Coronary artery disease involving oneida coronary artery of oneida heart without angina pectoris TAKE 1 TABLET BY MOUTH EVERY DAY 90 tablet 3 04/02/20 24 Active dapagliflozin propanediol (Farxiga) 10 mgIndications:he art failure Take 1 tablet (10 mg) by mouth once daily as directed for 360 doses. 90 tablet 3 04/02/20 24 025 Active spironolactone (Aldactone) 25 mg tabletIndication s:Chronic systolic heart failure (CMS/HCC) Take 0.5 tablets (12.5 mg) by mouth once daily as directed. 45 tablet 3 04/02/20 24 025 Active memantine (Namenda XR) 7 mg capsule,sprinkle ,ER 24hr Take by mouth in the morning. 04/05/20 24 Active carvedilol (Coreg) 3.125 mg tabletIndication s:Essential hypertension Take 1 tablet (3.125 mg) by mouth two times daily. 180 tablet 3 04/30/20 24 025 Active acetaminophen (Tylenol) 500 mg tablet Take 1,000 mg by mouth every 6 (six) hours if needed. 07/04/19 25 Active albuterol 2.5 mg /3 mL (0.083 %) nebulizer solution Take 2.5 mg by nebulization every 4 (four) hours if needed. 08/03/19 25 Active lidocaine (Lidoderm) 5 % patch Place 1 patch on the skin in the morning. 07/05/19 25 Active cholecalciferol (Vitamin D3) 10 MCG (400 UNIT) tablet Take 400 Units by mouth in the morning. Active sacubitril-valsa rtan (Entresto) 24-26 mg tabletIndication s:Acute on chronic systolic heart failure (CMS/HCC) Take 1 tablet by mouth two times daily. 60 tablet 12 10/31/19 25 025 Active potassium chloride (Klor-Con) 20 mEq packetIndication s:Hypokalemia Take 40 mEq by mouth in the morning AND 20 mEq daily with evening meal. 270 packet 3 11/13/19 25 026 Active furosemide (Lasix) 40 mg tabletIndication s:Cardiac arrest (CMS/HCC) Take 1 tablet (40 mg) by mouth two times daily. 90 tablet 3 11/13/19 25 026 Active ipratropium-albu teroL (Duo-Neb) 0.5-2.5 mg/3 mL nebulizer solutionIndicati ons:Cardiac arrest (CMS/HCC) Take 3 mL by nebulization every 6 (six) hours for 363 doses. 180 mL 11 03/06/20 24 025 Discontin ued(Med List Cleanup) furosemide (Lasix) 40 mg tabletIndication s:Cardiac arrest (CMS/HCC) Take 1 tablet (40 mg) by mouth if needed each day (leg swelling, shortness of breath, or weight gain). 90 tablet 3 04/30/20 24 025 Discontin ued(Reord er) hyoscyamine (Anaspaz,Levsin) 0.125 mg tabletIndication s:Staghorn calculus Take 1 tablet (0.125 mg) by mouth every 4 (four) hours if needed (Bladder spasms) for up to 10 days. 30 tablet 06/19/19 25 025 Discontin ued(Med List Cleanup) metoprolol succinate XL (Toprol-XL) 50 mg 24 hr tablet Take 1 tablet by mouth in the morning. 05/18/19 22 025 Discontin ued(Med List Cleanup) hyoscyamine (Anaspaz,Levsin) 0.125 mg tabletIndication s:Kidney stone Take 1 tablet (0.125 mg) by mouth every 4 (four) hours if needed for cramping for up to 10 days. 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 Regular aerobic exercise. Renal condition will be reassessed in 1 month. No associated orders from this encounter found during lookback period of 72 hours. Old myocardial infarction 11/15/2011 Paroxysmal supraventricular tachycardia 11/15/19 12 Encounters Date Type Department Care Team Description 11/12/2024 3:40 PM EDT Office Visit [facility] [address] [facility] [place] [address] Eliana Hubbard CNP Acute on chronic systolic heart failure (CMS/HCC) (Primary Dx); Cardiac arrest (CMS/HCC); Hypokalemia; ICD (implantable cardioverter-defibrillat or) in place; Paroxysmal atrial fibrillation (CMS/HCC); Benign hypertensive heart disease with heart failure (CMS/HCC); Mixed hyperlipidemia; Hematuria, unspecified type; Atherosclerosis of oneida coronary artery of oneida heart without angina pectoris; Impairment of balance; Hypotension due to drugs; Venous insufficiency 11/12/2024 Orders Only [facility] [address] [facility] [place] [address] Eliana uHbbard CNP 11/07/2024 Orders Only [facility] [address] [place] [address] 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 (Primary Dx) 10/30/2024 3:00 PM EDT Office Visit [facility] [address] [facility] [place] [address] Eliana Hubbard CNP Acute on chronic systolic heart failure (CMS/HCC) (Primary Dx); Paroxysmal atrial fibrillation (CMS/HCC); ICD (implantable cardioverter-defibrillat or) in place; Benign hypertensive heart disease with heart failure (CMS/HCC); Mixed hyperlipidemia; Cardiac arrest (CMS/HCC); Coronary artery disease due to lipid rich plaque; Kidney stone; Hematuria, unspecified type; Impairment of balance 10/19/2024 Orders Only [facility] [address] [place] [phone] Jaxon Marquez MD 10/17/2024 2:45 PM EDT Follow-Up [facility] [[email or web address]] Urology [address] [place] [phone] Tino Langston MD Kidney stone 09/27/2024 10:40 PM EDT Ancillary Procedure [facility] [place] [address] Pre-operative cardiovascular examination, ICD in place 09/27/[address] [facility] [place] [address] Jg Cason MD 09/04/2024 10:00 AM EDT - 09/04/2024 12:00 PM EDT Surgery [facility] [[email or web address]] [place] [address] Tino Langston MD CYSTOSCOPY, WITH STENT INSERT , RETRGRD PYELO, URETEROSCPY, HOLMIUM LASER LITHOTRIPSY, AND CALC BASKET EXTRACTION [08809 (CPT )] 09/04/2024 9:32 AM EDT Anesthesia Event [facility] [[email or web address]] [place] [address] Magdaleno Ashley MD Eisenman-Pate l, Taylor, MD 09/04/2024 8:30 AM EDT - 09/04/2024 12:35 PM EDT Hospital Encounter [facility] [[email or web address]] [place] [address] Tino Langston MD Kidney stone Discharge Disposition: Home or Self Care () 09/04/2024 8:28 AM EDT - 09/04/2024 8:29 AM EDT Hospital Encounter [facility] [[email or web address]] [place] [address] Pain Discharge Disposition: Home or Self Care () 09/04/2024 Travel 08/31/[address] [facility] [place] [address] Jg Cason MD 08/30/2024 10:00 AM EDT Lab [facility] [[email or web address]] Medical Pavilion Draw Station [address] [place] [address] Atherosclerosis of coronary artery, unspecified vessel or lesion type, unspecified whether angina present, unspecified whether oneida or transplanted heart; Kidney stone; Old myocardial infarction; Paroxysmal supraventricular tachycardia; Paroxysmal atrial fibrillation (CMS/HCC); Family history of bleeding or clotting disorder 08/30/2024 9:00 AM EDT Pre-Admission Testing [facility] [[email or web address]] Pre-Anesthesia Clinic [address] [address] 08/30/2024 Travel 08/29/2024 Orders Only [facility] [[email or web address]] Urology [address] [place] [address] Gabriella Crenshaw MA Family history of bleeding or clotting disorder; Kidney stone 08/28/2024 3:30 PM EDT Office Visit [facility] [place] [address] [place] [address] Eren Johansen CNP Preoperative cardiovascular examination (Primary Dx); Chronic HFrEF (heart failure with reduced ejection fraction) (CMS/HCC); ICD (implantable cardioverter-defibrillat or) in place; Paroxysmal atrial fibrillation (CMS/HCC); Benign hypertensive heart disease with heart failure (CMS/HCC); Mixed hyperlipidemia 08/27/2024 6:10 PM EDT Ancillary Procedure [facility] [address] [place] [address] Pre-operative cardiovascular examination, ICD in place from Last 3 Months Family History Medical History Relation Name Comments Cancer Brother Cancer Father Coronary artery disease Mother Cancer Sister Relation Name Status Comments Brother Father Mother Sister Social History Tobacco Use Types Packs/Day Years Used Date Smoking Tobacco: Former Cigarettes Smokeless Tobacco: Never Tobacco Cessation:Counseling Given: Not Answered Alcohol Use Standard Drinks/Week Comments Not Currently 0 (1 standard drink = 0.6 oz pur e alcohol) [facility] Utilities Answer Date Recorded In the past 12 months has [facility] [employer], oil, or water [employer] threatened to shut off services in your [...] place to sleep or slept in a care home (including now)? No 02/26/2024 Hunger Vital Sign [...] Heterosexual or Straight 02/12 8:29 AM EDT Last Filed Vital Signs Vital Sign Reading Time Taken Comments Blood Pressure 88/57 11/12/2024 4:08 PM EDT Pulse 60 11/12/2024 4:08 PM EDT Temperature 36.3 C (97.3 F) 09/04/2024 11:25 AM EDT Respiratory Rate 24 09/04/2024 12:20 PM EDT Oxygen Saturation 94% 11/12/2024 4:08 PM EDT Inhaled Oxygen Concentration - - Weight 101 kg (222 lb) 11/12/2024 4:08 PM EDT Height 182.9 cm (6') 11/12/2024 4:08 PM EDT Body Mass Index 30.11 11/12/2024 4:08 PM EDT Plan of Treatment Upcoming Encounters Date Type Department Care Team (Late st Contact Info) Description 11/18/2024 11:40 AM EDT Office Visit [facility] [address] [facility] [place] [phone] Eren Johansen, INCLUSION SPECIALIST [address] [place], [place] [phone] 12/09/2024 3:30 PM EDT Office Visit [facility] [address] [facility] [place] [address] Phong Kelley MD [address] [facility] [place] [phone] 01/17/2025 11:00 AM EDT Follow-Up [facility] [[email or web address]] Urology [address] [place] [phone] Tino Langston MD [address] [place] [address] Health Maintenance Due Date Last Done Comments Medicare Annual Wellness (AWV) 1945 Pneumococcal Vaccine: 50+ Ye ars (1 of 2 - PCV) 1964 Adult Tetanus 08/19/1967 Zoster Vaccines (1 of 2) 08/19/1995 COVID-19 Vaccine ( - 2023-2 5 season) 2024 Influenza Vaccine (#1) 2025 Depression Screening 02/08/2025 02/09/2024 Fall Risk Screening 06/26/2025 06/26/2024 HIB Vaccines Aged Out No longer eligi ble based on patient's age to complete this topic HPV Vaccines Aged Out No longer eligi ble based on patient's age to complete this topic IPV Vaccines Aged Out No longer eligi ble based on patient's age to complete this topic Meningococcal B Vaccine Aged Out No l onger eligible based on patient's age to complete this topic Meningococcal Vaccine Aged Out No rose marie emma eligible based on patient's age to complete this topic Rotavirus Vaccines Aged Out No longer eligible based on patient's age to complete this topic Medical Devices Implanted Type Area Crewman Armoured Personnel Carrier M113 Device Identifier Shelf Expiration Date Model / Serial / Lot Jared Ruvalcaba El,Df4-Dr - [id number] - [id number] Implanted:Qty: 1 on 03/04/2024 by Jaxon Marquez MD at [facility] ICD [employer] [id number] 12/18/2025 [id number] / [id number] / Stowe 4-Front S Active Fix Single Coil 64cm Implanted:Qty: 1 on 03/04/2024 by Jaxon Marquez MD at [facility] Lead [employer] [id number] 01/27/2026 0673 / [id number] / Ingevity+ Is-1 Bi Positive Fix Ra/Rv 52cm Implanted:Qty: 1 on 03/04/2024 by Jaxon Marquez MD at [facility] Lead [employer] [id number] 01/01/2026 7841 / [id number] / Stent,Ureteral ,Soft,Tria,6x2 6 - [id number] Implanted:Qty: 1 on 09/04/2024 by Qasim Hernandez MD at [facility] Stent Left: Ureter [employer] [id number] 04/16/2027 [id number] 30 / / [id number] Explanted Type Area Crewman Armoured Personnel Carrier M113 Device Identifier Shelf Expiration Date Model / Serial / Lot Stent,Ureteral Kit,[id number] - [id number] Implanted:Qty: 1 on 05/21/2024 by Tino Langston MD at [facility] Explanted:Qty: 1 on 06/19/2024 by Tino Langston MD at [facility] Stent Left: Kidney [employer] [id number] 10/31/2026 [id number] 30 / / [id number] Stent,Ureteral Kit,4.3zes00gy - [id number] Implanted:Qty: 1 on 06/19/2024 by Tino Langston MD at [facility] Explanted:Qty: 1 on 09/04/2024 by Qasim Hernandez MD at [facility] Stent Left: Kidney [employer] [id number] 01/02/2027 [id number] / / [id number] Procedures Procedure Name Priority Date/Time Associated Diagnosis Comments B-TYPE NATRIURETIC PEPTIDE Routine 11/11/2024 2:19 PM EDT BASIC METABOLIC PANEL Routine 11/11/2024 2:19 PM EDT CARDIAC DEVICE CHECK - REMOTE - ICD Routine 10/19/2024 12:00 AM EDT CARDIAC DEVICE CHECK CHECK - REMOTE Routine 10/08/2024 12:23 PM EDT Pre-operative cardiovascular examination, ICD in place CARDIAC DEVICE CHECK - REMOTE - ICD Routine 09/27/2024 12:00 AM EDT FL LESS THAN 1 HOUR INTRAOPERATIVE Routine 09/04/2024 11:23 AM EDT Pain HISTOLOGY - TISSUE EXAM Routine 09/04/2024 11:08 AM EDT Kidney stone GA AN ELECTIVE ENDOTRACHEAL AIRWAY Routine 09/04/2024 9:44 AM EDT GA CYSTO/URETERO W/LITHOTRIPSY &INDWELL STENT INSRT 09/04/2024 9:32 AM EDT Kidney stone POCT GLUCOSE METER UNSOLICITED RESULTS Routine 09/04/2024 9:01 AM EDT CARDIAC DEVICE CHECK - REMOTE ALERT - ICD Routine 08/31/2024 12:00 AM EDT CBC WITH AUTO DIFFERENTIAL Routine 08/30/2024 9:53 AM EDT Atherosclerosis of coronary artery, unspecified vessel or lesion type, unspecified whether angina present, unspecified whether oneida or transplanted heart Kidney stone Old myocardial infarction Paroxysmal supraventricular tachycardia PROTIME-INR Routine 08/30/2024 9:53 AM EDT Family history of bleeding or clotting disorder APTT Routine 08/30/2024 9:53 AM EDT Family history of bleeding or clotting disorder T4, FREE Routine 08/30/2024 9:53 AM EDT Paroxysmal atrial fibrillation (CMS/HCC) TSH Routine 08/30/2024 9:53 AM EDT Paroxysmal atrial fibrillation (CMS/HCC) CBC AND DIFFERENTIAL Routine 08/30/2024 9:53 AM EDT Atherosclerosis of coronary artery, unspecified vessel or lesion type, unspecified whether angina present, unspecified whether oneida or transplanted heart Kidney stone Old myocardial infarction Paroxysmal supraventricular tachycardia EXT CBC Routine 08/28/2024 EXT COMPREHENSIVE METABOLIC PANEL Routine 08/28/2024 CARDIAC DEVICE CHECK - REMOTE - ICD Routine 08/27/2024 11:27 AM EDT Pre-operative cardiovascular examination, ICD in place from Last 3 Months Results * B-type natriuretic peptide (11/11/2024 2:19 PM EDT) Blood Venous blood specimen / Unknown [facility] LAB BLOOD ORDERABLES Final Re sult * Basic metabolic panel (11/11/2024 2:19 PM EDT) Blood Venous blood specimen / Unknown [facility] LAB BLOOD ORDERABLES Final Re sult * Cardiac device check - Remote ICD (10/19/2024 12:00 AM EDT) Only the most recent of2 resultswithin the time period is included. Anatomical Region Laterality Modality Other 10/19/2024 Jaxon Marquez MD CV IMPLANTABLE CARDIAC DEVICE GA OCEDURES Final Result * CARDIAC DEVICE CHECK - REMOTE - ICD (10/08/2024 12:23 PM EDT) Only the most recent of2 resultswithin the time period is included. us Jaxon Marquez MD CV IMPLANTABLE CARDIAC DEVICE GA OCEDURES Final Result CPACS * FL LESS THAN 1 HOUR INTRAOPERATIVE (09/04/2024 11:23 AM EDT) Anatomical Region Laterality Modality X-Ray Angiograph y 09/04/2024 11:2 6 AM EDT Impressions 09/04/2024 11:27 AM EDT Intraoperative fluoroscopy provided for the clinical service during during cystoscopy and ureteroscopy. Reference air kerma 10.9 mGy. A radiologist was not present during this procedure. Questions regarding this exam should be directed to the clinical service that performed the procedure. This dictation was generated for documentation purposes for the fluoroscopic equipment utilization. Electronically signed: Rob Kellogg MD. Narrative 09/04/2024 11:27 AM EDT INTRAOPERATIVE FLUOROSCOPY HISTORY: Pain Procedure Note Rob Kellogg MD - 09/04/2024 INTRAOPERATIVE FLUOROSCOPY HISTORY: Pain IMPRESSION: Intraoperative fluoroscopy provided for the clinical service duringduring cystoscopy and ureteroscopy. Reference air kerma 10.9 mGy. Aradiologist was not present during this procedure. Questions regarding this exam shouldbe directed to the clinical service that performed the procedure. Thisdictation was generated for documentation purposes for the fluoroscopic equipment utilization. Electronically signed: Rob Kellogg MD. us Tino Langston MD IMG FLUOROSCOPY PROCEDURES Final Result * Histology - tissue exam (09/04/2024 11:08 AM EDT) Case Report Surgical Pathology Case: [id number] Authorizing Provider: Tino Langston MD Collected: 09/04/2024 1108 Ordering Location: [facility] [[email or web address]] Main Operating Room Received: 09/04/2024 1305 Pathologist: Jaxon Acosta MD Specimen: Kidney, KIDNEY STONE FOR ANALYSIS 09/18/2024 4:41 PM EDT [facility] [[email or web address]] HOSPITAL LAB ([facility]) Addendum 09-17-24: This case was sent to the Urolithiasis Laboratory in [place], [place] for chemical analysis (please see accompanying report). Please see results below: Urolithiasis Results: No nidus observed in the specimen The stone is composed of: Calcium oxalate monohydrate: 90% Calcium phosphate (Apatite): 10% 09/18/2024 4:[address] [facility] ([facility]) Addendum electronically signed by Jaxon Acosta MD on 09/18/2024 at 1641 EDT Final Diagnosis A. Kidney, stone for analysis: - Gross examination consistent with renal calculus. - Specimen forwarded to reference laboratory for chemical analysis. 09/18/2024 4:[address] [facility] ([facility]) at 1558 EDT Clinical Information Pre-op diagnosis: Kidney stone [N20.0] 09/18/2024 4:[address] [facility] ([facility]) Gross Description A. Kidney. The specimen is received fresh labeled Neptali Freemanets and kidney stone for analysis. It consists of a 0.3 x 0.2 x 0.1 cm yellow-brown, firm, roughened stone. The specimen is for gross examination only and is to be sent to the Urolithiasis lab in [place], [place] for chemical analysis. Rhiannon Mercado, Pathologists' Accounting Coordinator student Tabitha Aggarwal, Pathologists' Accounting Coordinator Student 09/18/2024 4:[address] [facility] ([facility]) Microscopic Description Gross examination only. 09/18/2024 4:[address] [facility] ([facility]) Stone/Calculus/S ludge (Kidney) 09/04/2024 11:08 AM EDT 09/04/2024 1:05 PM EDT Comment:Pre-op diagnosis: Kidney stone [N20.0] us Tino Langston MD LAB PATHOLOGY ORDERABLES Edited Result - Final [facility] ([facility]) [address] [place] [address] * GA AN ELECTIVE ENDOTRACHEAL AIRWAY (09/04/2024 9:44 AM EDT) Magdaleno Gandhi MD - 09/04/2024 9:44 AM EDT Iza Corbett MD 09/04/2024 10:23 AM Airway Date/Time: 09/04/2024 9:44 AM Urgency: elective Airway not difficult General Information and Staff Patient location during procedure: OR Anesthesiologist: Magdaleno Ashley MD Resident/STOCK ROOM MANAGER/CAA: Iza Corbett MD Performed: resident/STOCK ROOM MANAGER/ROSINA Learner assisted: NINI Lin Indications and Patient Condition Indications for airway management: anesthesia Spontaneous Ventilation: absent Sedation level: deep Preoxygenated: yes Patient position: sniffing Mask difficulty assessment: 3 - difficult mask (inadequate, unstable or two providers) +/- NMBA Planned trial extubation Final Airway Details Final airway type: endotracheal airway Successful airway: ETT Cuffed: yes Successful intubation technique: video laryngoscopy Facilitating devices/methods: intubating stylet Endotracheal tube insertion site: oral Blade: Evans Blade size: #3 ETT size (mm): 8.0 Cormack-Lehane Classification: grade I - full view of glottis Placement verified by: chest auscultation and capnometry Cuff volume (mL): 10 Measured from: lips ETT to lips (cm): 22 Number of attempts at approach: 1 us Magdaleno Ashley MD ANESTHESIA ORDERABLES Final Result * POCT glucose meter (09/04/2024 9:01 AM EDT) Glucose POC 80 70 - 105 mg/dL 09/04/2024 9:[address] [facility] ([facility]) Comment:milad Blood Capillary blood specimen / Unknown 09/04/2024 9:01 AM EDT 09/04/2024 9:21 AM EDT Travis [facility] ([facility]) - 09/04/2024 9:21 AM EDT Waived Testing in the ED is performed under the ED CLIA certificate #[id number]. us Tino Langston MD LAB BLOOD ORDERABLES Final Resul t [facility] ([facility]) [address] [place] [address] * Cardiac device check - Remote alert ICD (08/31/2024 12:00 AM EDT) Anatomical Region Laterality Modality Other 08/31/2024 us Samer Orlando Cason MD CV IMPLANTABLE CARDIAC DEVICE PROCEDURES Final Result * (ABNORMAL) CBC auto differential (08/30/2024 9:53 AM EDT) Auto WBC 6.26 4.00 - 10.60 10*3/uL 08/30/2024 10:[address] [facility] ([facility]) RBC 4.36 4.20 - 5.70 10*6/uL 08/30/2024 10:[address] [facility] ([facility]) Hemoglobin 13.3 13.0 - 17.0 g/dL 08/30/2024 10:[address] [facility] ([facility]) Hematocrit 42.6 39.0 - 50.0 % 08/30/2024 10:[address] [facility] ([facility]) MCV 97.7 82.0 - 98.0 fL 08/30/2024 10:[address] [facility] ([facility]) MCH 30.5 27.0 - 33.0 pg 08/30/2024 10:[address] [facility] ([facility]) MCHC 31.2(L) 32.0 - 35.0 g/dL 08/30/2024 10:[address] [facility] ([facility]) RDW 17.0(H) 11.5 - 15.0 % 08/30/2024 10:[address] [facility] ([facility]) Neutrophils % 65.8 40.0 - 72.0 % 08/30/2024 10:[address] [facility] ([facility]) Lymphocytes % 20.6 20.0 - 45.0 % 08/30/2024 10:[address] [facility] ([facility]) Monocytes % 8.5 5.0 - 12.0 % 08/30/2024 10:[address] [facility] ([facility]) Eosinophils % 3.8 0.0 - 6.0 % 08/30/2024 10:[address] [facility] ([facility]) Basophils % 1.0 0.0 - 1.0 % 08/30/2024 10:[address] [facility] ([facility]) Neutrophils Absolute 4.12 1.60 - 7.60 10*3/uL 08/30/2024 10:[address] [facility] ([facility]) Lymphocytes Absolute 1.29 1.20 - 4.00 10*3/uL 08/30/2024 10:[address] [facility] ([facility]) Monocytes Absolute 0.53 0.10 - 1.00 10*3/uL 08/30/2024 10:[address] [facility] ([facility]) Eosinophils Absolute 0.24 0.00 - 0.50 10*3/uL 08/30/2024 10:[address] [facility] ([facility]) Basophils Absolute 0.06 0.00 - 0.20 10*3/uL 08/30/2024 10:[address] [facility] ([facility]) Platelets 189 150 - 400 10*3/uL 08/30/2024 10:[address] [facility] ([facility]) nRBC % 0.0 0 % 08/30/2024 10:[address] [facility] ([facility]) Immature Granulocytes % 0.3 0.0 - 1.0 % 08/30/2024 10:[address] [facility] ([facility]) Immature Granulocytes Absolute 0.02 0.00 - 0.20 10*3/uL 08/30/2024 10:[address] [facility] ([facility]) Blood Venous blood specimen / Unknown Venipuncture / Unknown 08/30/2024 9:53 AM EDT 08/30/2024 10:01 AM EDT us Obi Ivis POE LAB BLOOD ORDERABLES Final Resul t [facility]) [address] [place] [address] * APTT (08/30/2024 9:53 AM EDT) aPTT 30.3 25.0 - 35.0 Seconds 08/30/2024 10:[address] [facility] ([facility]) Comment:Clinical significanc e of the APTT is questionable in the presence of heparin. Blood Venous blood specimen / Unknown Venipuncture / Unknown 08/30/2024 9:53 AM EDT 08/30/2024 9:58 AM EDT us Tino Langston MD LAB BLOOD ORDERABLES Final Resul t [facility] ([facility]) [address] [place] [address] * (ABNORMAL) Protime-INR (08/30/2024 9:53 AM EDT) Protime 14.7 12.3 - 14.8 Seconds 08/30/2024 11:[address] [facility] ([facility]) INR 1.15(H) 0.90 - 1.10 08/30/2024 11:[address] [facility] ([facility]) Comment: [facility] RECOMMENDED INR FOR WARFARIN THERAPY CONDITION INR PROPHYLAXIS OF VENOUS THROMBOSIS 2-3 (HIGH-RISK SURGERY) TREATMENT OF VENOUS THROMBOSIS 2-3 TREATMENT OF PULMONARY EMBOLISM 2-3 PREVENTION OF SYSTEMIC EMBOLISM: 2-3 ACUTE MYOCARDIAL INFARCTION TISSUE HEART VALVES VALVULAR HEART DISEASE ATRIAL FIBRILLATION RECURRENT SYSTEMIC EMBOLISM MECHANICAL HEART VALVE 2.5-3.5 FROM: ORAL ANTICOAGULANTS. MECHANISM OF ACTION, CLINICAL EFFECTIVENESS, AND OPTIMAL THERAPEUTIC RANGE. CHEST 1995;108:231S-246S. Blood Venous blood specimen / Unknown Venipuncture / Unknown 08/30/2024 9:53 AM EDT 08/30/2024 9:58 AM EDT Tino Langston MD LAB BLOOD ORDERABLES Final Resul t Performing Organization Address City/[facility]/ZIP Co de Phone Number [facility]) [address] [place] [id number] * TSH (08/30/2024 9:53 AM EDT) TSH 2.01 0.34 - 5.60 mIU/L 08/30/2024 10:42 AM EDT [facility]) Blood Venous blood specimen / Unknown Venipuncture / Unknown 08/30/2024 9:53 AM EDT 08/30/2024 10:01 AM EDT Eren Johansen CNP LAB BLOOD ORDERABLES Final Resul t Performing Organization Address [facility] de Phone Number [facility]) [address] [place] [address] * T4, free (08/30/2024 9:53 AM EDT) Free T4 1.24 0.71 - 1.85 ng/dL 08/30/2024 10:42 AM EDT [facility]) Blood Venous blood specimen / Unknown Venipuncture / Unknown 08/30/2024 9:53 AM EDT 08/30/2024 10:01 AM EDT Eren Johansen CNP LAB BLOOD ORDERABLES Final Resul t Performing Organization Address City/[facility] Co de Phone Number [facility]) [address] [place] [address] * External CBC (08/28/2024) External WBC 6.5 External RBC 4.11 External Hematocrit 40 % External Hemoglobin 12.7 g/dL External Platelets 174 K/uL EXT MCV 97.8 fL EXT MCH 30.9 pg EXT MCHC 31.6 g/dL EXT RDW 16.5 % Blood Venous blood specimen / Unknown 08/28/2024 Historical Provider MD UGAL[facility] EXTERNAL ORDERS Edite d Result - Final * External Comprehensive metabolic panel (08/28/2024) External Fasting Glucose 93 mg/L External Creatinine, Serum 1.18 mg/mL External BUN 15.0 mg/dL External Potassium 3.7 mmol/L External Sodium, serum 145 mmol/L External CO2, total 30.0 mEq/L External Chloride 110 mmol/L External Calcium 9.0 mg/dL External Albumin 2.8 External Protein, total 6.7 g/dL External Alkaline Phosphatase 118 U/L External ALT 29 U/L External AST 32 U/L External Bilirubin,total 0.5 mg/dL Blood Venous blood specimen / Unknown 08/28/2024 Historical Provider MD UGALDE EXTERNAL ORDERS Final Result from Last 3 Months Insurance [employer] Advance Directives * Full Code (Latest Code Status on File) Date Activated Date Inactivated Comments 02/26/2024 1:07 PM 03/06/2024 7:44 PM Care Teams Nuclear Equipment Research Engineer Relationship Specialty Start Date End Date Mere Gerber CNP [facility], [facility] [place] [id number] PCP - General Family Medicine 01/10/24
--- NOTE | 2024-11-18 10:18 | XR_ITS ---
The [address] [address] Patient Name: JUSTUS LOYOLA MRN: [id number] date: 1945 Sex: M Assigned Patient Location: LAB Current Patient Location: LAB Accession/Order Number: [id number] Exam Date: 11/18/2024 10:51 Report Date: 11/18/2024 10:56 At the request of: RANDOLPH PROCTOR APRN Procedure: XR chest 2V PA AND LATERAL CHEST: CLINICAL HISTORY: Usp 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 Mild scarring or atelectasis is visualized at the bases, greater on the left. There is no additional consolidation, effusion or pneumothorax. The cardiac, hilar and mediastinal silhouettes are within normal limits. There is no vascular congestion. Interposition of colon is present below both hemidiaphragms. The visualized bony structures are osteopenic. There are tiny endplate spurs. XR/XR chest 2V IMPRESSION: BASILAR ATELECTASIS AND/OR SCARRING. NO OTHER ACUTE FINDINGS. Impression dictated by: Katy Galeana M.D. 11/18/2024 10:56 AM Dictation Location: [place] [address] Electronically authenticated by: [id number] Y Date: 11/18/2024 10:56
[2024-11-18 10:27] LABS: Anion Gap 13.6; Blood Urea Nitrogen 16.0 mg/dL (7.0-18.0); Calcium 9.5 mg/dL (8.5-10.1); Carbon Dioxide 30.1 mmol/L (21.0-32.0); Chloride 109 mmol/L (98-107); Estimated GFR (African America 50 (>=60 mL/min/1.73m^2); Estimated GFR (Non-African Ame 41 (>=60 mL/min/1.73m^2); Glucose 109 mg/dL (74-106); Magnesium 2.2 mg/dL (1.8-2.4); Potassium 4.7 mmol/L (3.5-5.1); Sodium 148 mmol/L (136-145)
== END 2024-11-18 09:39 | disposition home or self-care (01) ==
LOC: LAB 09:41
PROVIDERS: PCP Family Medicine; Visit Provider Nurse Practitioner Family
DX: E87.6 Hypokalemia (principal); I50.23 Acute on chronic systolic (congestive) heart failure; Z79.899 Other long term (current) drug therapy
CPT/HCPCS: 36415; 71046; 80048; 83735

== ENCOUNTER 2024-11-25 16:35 | Outpatient (OUT) | payer MEDICARE, SELFPAY ==
--- OUTSIDE RECORDS SUMMARY | 2024-07-01 12:47 | XMS_ITS ---
Author Organization [facility] in [place] Address [address] [place] [address] Care Team Providers Care Senior Account Director Name Role Phone Mere Gerber Primary Care Provider REASON FOR VISIT TCM- VM not setup Encounters Encounter Location Date Provider Diagnosis [facility] [address] [place] [address] 07/01/2024 Mere Gerber Plan Of Treatment No Information Progress Notes * Neptali LOYOLADOB:1945 (78 yo M)Acc No.[id number]:07/01/2024 Patient: Delaney WALKER Edluis armando :1945 A ge:78 Y S ex:Male Address:[address], [facility] [address] * true * Date: Generated for Diego culp/Serina/eTransmitting on: 0 11/25/2024 04:38 PM EDT
--- OUTSIDE RECORDS SUMMARY | 2024-07-08 11:00 | XMS_ITS ---
Author Organization [facility] in [place] Address [address] [place] [address] Care Team Providers Care Hose Seamer Name Role Phone Mere Gerber Primary Care Provider [phone] REASON FOR VISIT TCM D/C from [facility] on 07/02 Encounters Encounter Location Date Provider Diagnosis [facility] [address] [place] [address] 07/08/2024 Mere Gerber Plan Of Treatment No Information Progress Notes * Neptali LOYOLADOB:1945 (79 yo M)Acc No.[id number]:07/08/2024 UNLOCKED PROGRESS NOTE Progress Note Patient: Neptali TORREZ Provider: Angelica Gerber CNP (TTC) :1945 A ge:78 Y S ex:Male Date:07/08/2024 Address:[address] [place], [place] [id number] Subjective: * Chief Complaints: * 1 . TCM D/C from [facility] on 07/02. * Medical History: Objective: * Vitals: Assessment: Plan: * Treatment: * * Electronic signature of Laxmi Ramirez NP, TABLE [email or web address] on 11/25/2024 at 04:38 PM EDT Sign off status: Pending Visit Status: N /S N/C (No Show/No Charge) * Provider: Angelica Gerber (TTC) KENNEL AIDE Date: 0 07/08/2024 Generated for Printi ng/Faxing/eTransmitting on: 0 11/25/2024 04:38 PM EDT
--- OUTSIDE RECORDS SUMMARY | 2024-08-20 12:15 | XMS_ITS ---
Author Organization [facility] in [place] Address [address] [place] [address] Care Team Providers Care Big Data Developer Name Role Phone Mere Gerber Primary Care Provider [phone] Allergies No Known Allergies REASON FOR VISIT Presents to office with son for 6 month f/u, Sees Cardio August 28- [facility] Cardio Medications Medication SIG (Take, Route, Frequency, [...] day Active Vitamin D (Ergocalciferol) 1.25 MG (90030 UT) 1 capsule Orally daily Active Walker [...] you last smoked? 5-10 years Vital Signs Blood pressure systolic 98 mm Hg 08/21/19 25 Blood pressure diastolic 56 mm Hg 025 Height 72 in 08/20/2024 Weight 202.0 lbs 08/20/2024 BMI 27.39 kg/m2 08/20/2024 Encounters Encounter Location Date Provider Diagnosis [facility] [address] [place] [address] 08/20/2024 Mere Gerber HTN (hypertension) I10 Assessments Encounter Date Diagnosis (ICD Code) Assessment Notes Treatment Notes Treatment Clinical Notes Section Notes 08/20/2024 HTN (hypertension) (ICD-10 - I10) controlled, fu cardiology Plan Of Treatment Treatment Notes Assessment Notes HTN (hypertension) controlled, fu cardiology Next Appt Details Follow Up: prn, Reason: Progress Notes * NIR NeptaliDOB:1945 (79 yo M)Acc No.[id number]:08/20/2024 Progress Note Patient: Neptali TORREZ Provider: Angelica Gerber ([facility]), SUPERVISOR SPECIALTY PLANT :1945 A ge:79 Y S ex:Male Date:08/20/2024 Address:[address] [place], [place] [phone] Check In:04:02 PM ESTCheck O ut:04:30 PM EST Subjective: * Chief Complaints: * 1 . Presents to office with son for 6 month f/u. 2. Sees Cardio August 28- [facility] Cardio. * HPI: G eneral: home now sees cardiology next week echo recently, needs clearance before next kidney procedure [facility] request record taking meds ok sleeps ok walker, shower chair, wheelchair- borrowed [facility]. * ROS: G eneral/Constitutional: Fever d enies. [...] , Taking Vitamin D (Ergocalciferol) 1.25 MG (80739 UT) Capsule 1 capsule Orally daily , [...] * Treatment: * Preventive Medicine: Screenings/Counseling: B [place] ACTION PLAN Above Normal BMI Follow-up D ietary management education, guidance, and counseling See treatment section of progress note for complete details of management plan. F ALL RISK SCREENING Fall Risk Assessment: N o falls in the past year * Follow Up: p rn * * Electronically signed by Adeola Gerber , ELROY, SEAFOOD FARMER.SUPERVISOR SPECIALTY PLANT.[id number] on 08/22/2024 at 09:02 AM EDT Sign off status: Completed Visit Status: C HK (Check Out) true * Provider: Angelica Gerber ([facility]), SUPERVISOR [employer]TY PLANT Date: 0 08/20/2024 Generated for Diego culp/Serina/Anayeliitting on: 0 11/25/2024 04:39 PM EDT History and Physical Notes * HPI (History of Present Illness) Category Sub-Category Detail Notes Category Not es General home now sees cardiology next week echo recently, needs clearance before next kidney procedure [facility] request record taking meds ok sleeps ok walker, shower chair, wheelchair- borrowed [facility] Examination Category Sub-Category Detail Notes Category Not [...]
--- OUTSIDE RECORDS SUMMARY | 2024-11-12 15:40 | XMS_ITS | Encounter Summary ---
Author Organization [facility] Address [address] [place] [address] Care Team Providers Care Dermatology Technician Name Role Phone Mere Gerber CNP Primary Care Provider [phone] Reason for Visit * Reason Comments Congestive Heart Failure Encounter Details Date Type Department Care Team (Late st Contact Info) Description 11/12/2024 3:40 PM EDT Office Visit [facility] Heart at [facility] [address] [place] [address] Eliana Hubbard CNP [address] [place] [address] Acute on chronic systolic heart failure (CMS/HCC) (Primary Dx); Cardiac arrest (CMS/HCC); Hypokalemia; ICD (implantable cardioverter-defibrill ator) in place; Paroxysmal atrial fibrillation (CMS/HCC); Benign hypertensive heart disease with heart failure (CMS/HCC); Mixed hyperlipidemia; Hematuria, unspecified type; Atherosclerosis of cedar[place] coronary artery of [place]edar[place] heart without angina pectoris; Impairment of balance; Hypotension due to drugs; Venous insufficiency Social History Tobacco Use Types Packs/Day Years Used Date Smoking Tobacco: Former Cigarettes Smokeless Tobacco: Never Alcohol Use Standard Drinks/Week Comments Not Currently 0 (1 standard drink = 0.6 oz pur e alcohol) [facility] Utilities Answer Date Recorded In the past 12 months has e [employer], gas, oil, or water [employer] threatened to shut off services in your [...] place to sleep or slept in a mcfp (including now)? No 02/26/2024 Hunger Vital Sign [...] arrest s/p ICD, CAD, CHF, and PAF. [id number] doesn't believe he's taking lasix right now. 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) Ventricular fibrillation ([facility]/HCC) Chronic systolic heart failure ([facility]/HCC) ICD (implantable cardioverter-defibrillator) in place Paroxysmal atrial fibrillation ([facility]/HCC) Benign hypertensive heart disease with heart failure ([facility]/HCC) Staghorn calculus Kidney stones Fall in home Loose stools Past Medical History: Diagnosis Date Abnormal ECG Acute combined systolic and diastolic heart failure (CMS/HCC) Afib ([facility]/HCC) Arrhythmia Arrhythmia Atrial fibrillation ([facility]/HCC) Bladder infection Cardiac arrest ([facility]/HCC) CHF (congestive heart failure) (CMS/HCC) Chronic kidney disease Coronary artery disease Cystitis without hematuria DJD (degenerative joint disease) GERD (gastroesophageal reflux disease) H/O heart artery stent History of transfusion Hyperlipidemia Hypertension Intellectual disability Kidney stone Myocardial infarction ([facility]/HCC) Paroxysmal SVT (supraventricular tachycardia) Family History Problem [...] kg (222 lb) SpO2 94% BMI 30.11 kg/m?? Smoking Status Former BSA 2.27 m?? Medications: Current Outpatient Medications: acetaminophen (Tylenol) 500 [...] 164 QT Interval 418 QTC CALCULATION(BAZETT) 533 R-Clifton -56 T Wave Clifton 35 Impression Atrial fibrillation Right bundle branch [...] PERFORMED: 1. Implantation of dual chmaber ICD ([employer]) 2. Ultrasound guided venous access INDICATIONS: [...] Mixed hyperlipidemia Hematuria, unspecified type Atherosclerosis of cedar[place] coronary artery of [place]edar[place] heart without angina pectoris Impairment of balance [...] Care Team (Late st Contact Info) Description 11/29/2024 3:20 PM EDT Office Visit [facility] [address] [place] [address] Eren Johansen CNP [address] [place] [address] 12/09/2024 3:30 PM EDT Office Visit [facility] [address] [place] [address] Phong Kelley MD [address] [facility] [address] [facility] [place] [address] 01/17/2025 11:00 AM EDT Follow-Up [facility] Urology [address] [place] [address] Tino Langston MD [address] [place] [address] Dr [address] [place] [address] Scheduled Orders Name Type Priority Associated Diagnoses Orde r Schedule Magnesium Lab Routine Acute on chronic systolic [...] Mixed hyperlipidemia Hematuria, unspecified type Atherosclerosis of [place]edar[place] coronary artery of [place] heart without angina pectoris Impairment of balance Hypotension due to drugs Other iatrogenic hypotension Venous insufficiency Unspecified venous (peripheral) insufficiency documented in this encounter Care Teams Dermatology Technician Relationship Specialty Start Date End Date Mere Gerber CNP [address] [place] [address], [facility] [place] [address] PCP - General Family Medicine 01/10/24 documented as of this encounter
--- OUTSIDE RECORDS SUMMARY | 2024-11-25 16:38 | XMS_ITS | Encounter Summary ---
Author Organization The [facility] Address [address] [place] [address] Care Team Providers Care Extruder Name Role Phone Mere Gerber CNP Primary Care Provider [phone] Encounter Details Date Type Department Care Team (Late st Contact Info) Description 11/18/2024 Orders Only [facility] Heart at [facility] [address] [place] [address] Kimmy Child MA Coronary artery disease due to lipid rich plaque (Primary Dx); SOB (shortness of breath) Social History Tobacco Use Types Packs/Day Years Used Date Smoking Tobacco: Former Cigarettes Smokeless Tobacco: Never Alcohol Use Standard Drinks/Week Comments Not Currently 0 (1 standard drink = 0.6 oz pur e alcohol) [facility] Utilities Answer Date Recorded In the [...] place to sleep or slept in a nursing home (including now)? No 02/26/2024 Hunger Vital [...] Description 11/29/2024 3:20 PM EDT Office Visit [facility] [address] [place] [address] Eren Johansen, MAINTENANCE AND CUSTODIAN SUPERVISOR [address] [place] [address] 12/09/2024 3:30 PM EDT Office Visit [facility] [address] [place] [facility] [place] [address] Phong Kelley MD [address] [facility] [address] [facility] [place] [address] 01/17/2025 11:00 AM EDT Follow-Up [facility] Urology [address] [place] [address] [place] [address] [place] [address] [address] [place] [address] Scheduled Orders Name Type Priority Associated Diagnoses Orde r Schedule Basic metabolic panel Lab Routine Coronary artery disease due to lipid rich plaque Expected: 11/18/2024 (Approximate), Expires: 11/18/2025 Pro-BNP Lab Routine Coronary artery disease due to lipid rich plaque SOB (shortness of breath) Expected: 11/18/2024 (Approximate), Expires: 11/18/2025 documented as of this encounter Visit Diagnoses Diagnosis Coronary artery disease due to lipid rich plaque- Primary SOB (shortness of breath) Shortness of breath documented in this encounter Care Teams Extruder Relationship Specialty Start Date End Date Mere Gerber CNP [address] [place] [address], [facility] [place] [address] PCP - General Family Medicine 01/10/24 documented as of this encounter
--- OUTSIDE RECORDS SUMMARY | 2024-11-25 16:38 | XMS_ITS | Encounter Summary ---
Author Organization The [facility] Address [address] [place] [address] Care Team Providers Care Printed Circuit Board Layout Designer Name Role Phone Mere Gerber CNP Primary Care Provider [phone] Encounter Details Date Type Department Care Team (Late st Contact Info) Description 11/18/2024 Orders Only [facility] Heart at [facility] [address] [place] [address] Kimmy Child MA Congestive heart failure, unspecified HF chronicity, unspecified heart failure type (CMS/HCC) (Primary Dx) Social History Tobacco Use Types Packs/Day Years Used Date Smoking Tobacco: Former Cigarettes Smokeless Tobacco: Never Alcohol Use Standard Drinks/Week Comments Not Currently 0 (1 standard drink = 0.6 oz pur e alcohol) [facility] Utilities Answer Date Recorded In the past 12 months has e electric, gas, oil, or water [employer] threatened to shut off services in your [...] Description 11/29/2024 3:20 PM EDT Office Visit [place] [address] [place] [address] Eren Johansen, CLAIMS CUSTOMER SERVICE REPRESENTATIVE [address] [place] [address] 12/09/2024 3:30 PM EDT Office Visit [facility] [address] [place] [address] Phong Kelley MD [address] [facility] [place] [address] 01/17/2025 11:00 AM EDT Follow-Up [facility] Urology [address] [place] [address] Tino Langston MD [address] [facility] [address] [place] [address] documented as of this encounter Visit Diagnoses Diagnosis Congestive heart failure, unspecified HF chronicity, unspecified heart failure type (CMS/HCC)- Primary documented in this encounter Care Teams Printed Circuit Board Layout Designer Relationship Specialty Start Date End Date Mere Gerber CNP [address] [place] [address] PCP - General Family Medicine 01/10/24 documented as of this encounter
--- OUTSIDE RECORDS SUMMARY | 2024-11-25 16:38 | XMS_ITS ---
Author Organization The [facility] Address [address] [place] [address] Care Team Providers Care Bonding Machine Operator Name Role Phone Mere Gerber CNP Primary Care Provider [phone] Transplant Episode Kidney Candidate [facility], [place]) - [facility] Referred on 05/23/2024 Marked as Deferred on 07/01/2024 Reason: Other - Specify in Note Kidney CoordinatorPaola Olivares MA Phone: N/A Fax: N/A Email: N/A Scores Score Value Updated Exceptions/Reas ons CPRA Not available EPTS (Calc) 81 11/25/2024 Care Team Name Role Phone Fax Email Paola Olivares MA Kidney Coordinator N/A N/A N/A Tino Langston MD Referring Physician [phone] N/A Events Pre-Transplant Referred: 05/23/2024
--- OUTSIDE RECORDS SUMMARY | 2024-11-25 16:39 | XMS_ITS | Patient Health Record ---
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 04/03/2024 Myocardial infarctio n (ICD-10 - I21.9) 04/03/2024 HTN (hypertension) (ICD-10 - I10) 04/03/2024 Acute on chronic systolic (congestive) heart failure (ICD-10 - I50.23) 04/03/2024 Dementia (ICD-10 - F03.90) Plan Of Treatment Pending Test Test Name Order Date HEMOGLOBIN A1C (GLYCO) 02/23/2024 INSULIN, TOTAL 02/23/2024 LIPID PANEL (CHOL/TRIG/HDL/LDL) 02/23/20 24 PSA, TOTAL 02/23/2024 THYROID PANEL (T4/TSH/FREE T3) 4 Insurance Providers Payer Name Payer Address Payer Phone Subscriber Number Group Number Insured Name Patient Relationship to Insured Coverage Start Date Coverage End Date [employer] [address] [place] [address] [id number] Justus Loyola Self - patient is the insured Medical (General) History Medical History History ICD Code Myocardial infarction I21.9 Hypertension I10 Hypercholesteremia E78.00 Surgical History Surgery Date(Month/Year) Lithotripsy x2 2024 Cardiac Stent Placement Defibrillator placement Hospitalization History Reason Date(Month/Year) See Above
--- OUTSIDE RECORDS SUMMARY | 2024-11-25 16:39 | XMS_ITS | Encounter Summary ---
Author Organization [facility] Address [address] [place] [address] Care Team Providers Care Marine Biologist Name Role Phone Gloria Quintana FIELD CONSULTANT Unavailable [phone] Encounter Details Date Type Department Care Team (Late st Contact Info) Description 07/11/2024 Abstract [facility] [address] [place] [id number] Unallocated, [facility] Provider, [address] [address] Social History Tobacco Use Types Packs/Day Years [...] on filedocumented in this encounter Care Teams Marine Biologist Relationship Specialty Start Date End Date Gloria Quintana NP [address] [place] [address] PCP - Rigo MITCHELL 10/13/24 documented as of this encounter
--- OUTSIDE RECORDS SUMMARY | 2024-11-25 16:39 | XMS_ITS | Clinical Summary ---
Author Organization [facility] Address [address] [place] [address] Care Team Providers Care [employer] Bagger Name Role Phone Mere Gerber CNP Primary Care Provider [phone] Allergies No known active allergies Medications amiodarone (Pacerone) 200 mg tabletIndication s:Cardiac arrest (CMS/HCC) Take 1 tablet (200 mg) by mouth two times daily. 180 tablet 3 04/02/20 24 025 Active apixaban (Eliquis) 5 mg tabletIndication s:Cardiac arrest (CMS/HCC) Take 1 tablet (5 mg) by mouth two times daily. 60 tablet 11 04/02/20 24 Active Additional Information Patient not taking.Reason: Other, Reported on 11/18/2024 atorvastatin (Lipitor) 80 mg tabletIndication s:Coronary artery disease due to lipid rich plaque Take 1 tablet (80 mg) by mouth at bedtime. 90 tablet 3 04/02/20 24 Active clopidogrel (Plavix) 75 mg tabletIndication s:Coronary artery disease involving akhiok coronary artery of akhiok heart without angina pectoris TAKE 1 TABLET BY MOUTH EVERY DAY 90 tablet 3 04/02/20 24 Active dapagliflozin propanediol (Farxiga) 10 mgIndications:he art failure Take 1 tablet (10 mg) by mouth once daily as directed for 360 doses. 90 tablet 3 04/02/20 24 025 Active memantine [...] times daily. 60 tablet 12 10/31/19 25 Active Additional Information Patient taking differently: 0.5 tabletoral 2 times daily, Reported on 11/18/2024 potassium chloride (Klor-Con) 20 mEq packetIndication s:Hypokalemia Take 40 mEq by mouth in the morning AND 20 mEq daily with evening meal. 270 packet 11/13/19 25 026 Active bumetanide (Bumex) 1 mg tabletIndication s:Acute HFrEF (heart failure with reduced ejection fraction) (CMS/[facility]),Bilate ral lower extremity edema Take 1 tablet (1 mg) by mouth two times daily. 60 tablet 11 11/19/19 25 026 Active spironolactone (Aldactone) 25 mg tabletIndication s:Chronic systolic heart failure (CMS/HCC) Take 1 tablet (25 mg) by mouth once daily as directed. 45 tablet 3 11/19/19 25 026 Active potassium chloride CR (K-Tab) 20 mEq ER tabletIndication s:SOB (shortness of breath) Take 1 tablet (20 mEq) by mouth two times daily. Do not crush, chew, or split. This is a decrease 180 tablet 3 11/19/19 25 026 Active potassium chloride (Klor-Con) 20 mEq packetIndication s:Congestive heart failure, unspecified HF chronicity, unspecified heart failure type (CMS/HCC) Take 20 mEq by mouth two times daily. 180 packet 3 11/19/19 026 Active ipratropium-albu teroL (Duo-Neb) 0.5-2.5 mg/3 mL nebulizer solutionIndicati ons:Cardiac arrest (CMS/HCC) Take 3 mL by nebulization every 6 (six) hours for 363 doses. 180 mL 11 03/06/20 025 Discontin ued(Med List Cleanup) spironolactone (Aldactone) 25 mg tabletIndication s:Chronic systolic heart failure (CMS/HCC) Take 0.5 tablets (12.5 mg) by mouth once daily as directed. 45 tablet 3 04/02/20 025 Discontin ued(Reord er) furosemide (Lasix) 40 mg tabletIndication s:Cardiac arrest (CMS/HCC) Take 1 tablet (40 mg) by mouth if needed each day (leg swelling, shortness of breath, or weight gain). 90 tablet 3 04/30/20 025 Discontin ued(Reord er) hyoscyamine (Anaspaz,Levsin) 0.125 mg tabletIndication s:Staghorn calculus Take 1 tablet (0.125 mg) by mouth every 4 (four) hours if needed (Bladder spasms) for up to 10 days. 30 tablet 06/19/19 025 Discontin ued(Med List Cleanup) metoprolol succinate XL (Toprol-XL) 50 mg 24 hr tablet Take 1 tablet by mouth in the morning. 05/18/19 22 025 Discontin ued(Med List Cleanup) hyoscyamine (Anaspaz,Levsin) 0.125 mg tabletIndication s:Kidney stone Take 1 tablet (0.125 mg) by mouth every 4 (four) hours if needed for cramping for up to 10 days. 30 tablet 09/05/19 025 Discontin ued(Med List Cleanup) furosemide (Lasix) 40 mg tabletIndication s:Cardiac arrest (CMS/HCC) Take 1 tablet (40 mg) by mouth two times daily. 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 [place] [address] Kimmy Child MA Coronary artery disease due to lipid rich plaque (Primary Dx); SOB (shortness of breath) 11/12/2024 3:40 PM EDT Office Visit [facility] [address] 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 [place] [address] Eliana Hubbard CNP 11/07/2024 Orders Only [facility] [address] [place] [place] [address] Kimmy Child MA termite exterminator helper current use of amiodarone (Primary Dx) 10/30/2024 3:00 PM EDT Office Visit [facility] [address] 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; Benign hypertensive heart disease with heart failure (CMS/HCC); Mixed hyperlipidemia; Cardiac arrest (CMS/HCC); Coronary artery disease due to lipid rich plaque; Kidney stone; Hematuria, unspecified type; Impairment of balance 10/19/2024 Orders Only [facility] [address] [place] [phone] Jaxon Marquez MD 10/17/2024 2:45 PM EDT Follow-Up [facility] Urology [address] [place] [address] Tino Langston MD Kidney stone 09/27/2024 10:40 PM EDT Ancillary Procedure [facility] [place] [address] Pre-operative cardiovascular examination, ICD in place 09/27/2024 Orders Only [facility] [address] [place] [address] Jg Cason MD 09/04/2024 10:00 AM EDT - 09/04/2024 12:00 PM EDT Surgery [facility] [place] [address] Tino Langston MD CYSTOSCOPY, WITH STENT INSERT , RETRGRD PYELO, URETEROSCPY, HOLMIUM LASER LITHOTRIPSY, AND CALC BASKET EXTRACTION [37063 (CPT )] 09/04/2024 9:32 AM EDT Anesthesia Event [facility] [place] [address] Magdaleno Ashley MD Eisenman-Pate l, Taylor, MD 09/04/2024 8:30 AM EDT - 09/04/2024 12:35 PM EDT Hospital Encounter [facility] [place] [address] Tino Langston MD Kidney stone Discharge Disposition: Home or Self Care () 09/04/2024 8:28 AM EDT - 09/04/2024 8:29 AM EDT Hospital Encounter [facility] [place] [address] Pain Discharge Disposition: Home or Self Care () 09/04/2024 Travel 08/31/2024 Orders Only [facility] [place] [address] Jg Cason MD 08/30/2024 10:00 AM EDT Lab [facility] Medical Pav[facility] Draw Station [address] [id number] Atherosclerosis of coronary artery, unspecified vessel or lesion type, unspecified whether angina present, unspecified whether akhiok or transplanted heart; Kidney stone; Old myocardial infarction; Paroxysmal supraventricular tachycardia; Paroxysmal atrial fibrillation (CMS/HCC); Family history of bleeding or clotting disorder 08/30/2024 9:00 AM EDT Pre-Admission Testing [facility] Pre-Anesthesia Clinic [address] [place] [address] 08/30/2024 Travel 08/29/2024 Orders Only [facility] Urology [address] [place] [address] Gabriella Crenshaw MA Family history of bleeding or clotting disorder; Kidney stone 08/28/2024 3:30 PM EDT Office Visit [address] [phone] Eren Johansen CNP Preoperative cardiovascular examination (Primary Dx); Chronic HFrEF (heart failure with reduced ejection fraction) (CMS/HCC); 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 No 02/26/2024 Hunger Vital Sign [...] Sign Reading Time Taken Comments Blood Pressure 118/72 11/18/2024 10:56 AM EDT Pulse 60 11/18/2024 10:56 AM EDT Temperature 36.3 C (97.3 F) 09/04/2024 11:25 AM EDT Respiratory Rate 24 09/04/2024 12:20 PM EDT Oxygen Saturation 96% 11/18/2024 10:56 AM EDT Inhaled Oxygen Concentration - - Weight 102 kg (224 lb) 11/18/2024 10:56 AM EDT Height 182.9 cm (6') 11/18/2024 10:56 AM EDT Body Mass Index 30.38 11/18/2024 10:56 AM EDT Plan of Treatment Upcoming Encounters Date Type Department Care Team (Late st Contact Info) Description 11/29/2024 3:20 PM EDT Office Visit [facility] [address] [place] [address] Eren Johansen, STRATEGIC DEBRIEFING OFFICER [address], [place] [phone] 12/09/2024 3:30 PM EDT Office Visit [facility] [address] [place] [place] [address] Phong Kelley MD [address] [facility] [address] [facility] [place] [phone] 01/17/2025 11:00 AM EDT Follow-Up [facility] Urology [address] [facility] [place] [phone] Tino Langston MD [address] [place] [phone] Health Maintenance Due Date Last Done Comments [...] this topic Medical Devices Implanted Type Area Local Delivery Truck Driver Device Identifier Shelf Expiration Date Model / Serial / Lot Jared Ruvalcaba El,Df4-Dr - [id number] - [id number] Implanted:Qty: 1 on 03/04/2024 by Jaxon Marquez MD at [facility] ICD [employer] [id number] 12/18/2025 [id number] / [id number] / [place] 4-Front S Active Fix Single Coil 64cm Implanted:Qty: 1 on 03/04/2024 by Jaxon Marquez MD at [facility] Lead StatSheet [id number] 01/27/2026 0673 / [id number] / Ingevity+ Is-1 Bi Positive Fix Ra/Rv 52cm Implanted:Qty: 1 on 03/04/2024 by Jaxon Marquze MD at [facility] Lead StatSheet [id number] 01/01/2026 [id number] / [id number] / Stent,Ureteral ,Soft,Tria,6x2 6 - [id number] Implanted:Qty: 1 on 09/04/2024 by Qasim Hernandez MD at [facility] Stent Left: Ureter [employer] [id number] 04/16/2027 [id number] / / [id number] Explanted Type Area Local Delivery Truck Driver Device Identifier Shelf Expiration Date Model / Serial / Lot Stent,Ureteral Kit,[id number] - [id number] Implanted:Qty: 1 on 05/21/2024 by Tino Langston MD at [facility] Explanted:Qty: 1 on 06/19/2024 by Tino Langston MD at [facility] Stent Left: Kidney [employer] [id number] 10/31/2026 [id number] / / [id number] Stent,Ureteral Kit,[id number] - [id number] Implanted:Qty: 1 on 06/19/2024 by Tino Langston MD at [facility] Explanted:Qty: 1 on 09/04/2024 by Qasim Hernandez MD at [facility] Stent Left: Kidney [employer] [id number] 01/02/2027 [id number] / / [id number] Procedures Procedure Name Priority Date/Time Associated Diagnosis [...] Routine 09/04/2024 11:08 AM EDT Kidney stone [place] AN ELECTIVE ENDOTRACHEAL AIRWAY Routine 09/04/2024 9:44 AM EDT [place] CYSTO/URETERO W/LITHOTRIPSY &INDWELL STENT INSRT 09/04/2024 9:32 AM EDT Kidney stone POCT GLUCOSE METER UNSOLICITED RESULTS Routine 09/04/2024 9:01 AM EDT CARDIAC DEVICE CHECK - REMOTE ALERT - ICD Routine 08/31/2024 12:00 AM EDT CBC WITH AUTO DIFFERENTIAL Routine 08/30/2024 9:53 AM EDT Atherosclerosis of coronary artery, unspecified vessel or lesion type, unspecified whether angina present, unspecified whether akhiok or transplanted heart Kidney stone Old myocardial [...] type, unspecified whether angina present, unspecified whether akhiok or transplanted heart Kidney stone Old myocardial infarction Paroxysmal supraventricular tachycardia EXT CBC Routine 08/28/2024 EXT COMPREHENSIVE METABOLIC PANEL Routine 08/28/2024 CARDIAC DEVICE CHECK - REMOTE - ICD Routine 08/27/2024 11:27 AM EDT Pre-operative cardiovascular examination, ICD in place from Last 3 Months Results * B-type natriuretic peptide (11/11/2024 2:19 PM EDT) Blood Venous blood specimen / Unknown [facility] LAB BLOOD ORDERABLES Final Re sult * Basic metabolic panel (11/11/2024 2:19 PM EDT) Blood Venous blood specimen / Unknown [facility] LAB BLOOD ORDERABLES Final Re sult * Cardiac device check - Remote ICD (10/19/2024 12:00 AM EDT) Only the most recent of2 resultswithin the time period is included. Anatomical Region Laterality Modality Other 10/19/2024 Jaxon Marquez MD CV IMPLANTABLE CARDIAC DEVICE [place] OCEDURES Final Result * CARDIAC DEVICE CHECK - REMOTE - ICD (10/08/2024 12:23 PM EDT) Only the most recent of2 resultswithin the time period is included. Jaxon Marquez MD CV IMPLANTABLE CARDIAC DEVICE [place] OCEDURES Final Result CPACS * [place] LESS [...] equipment utilization. Electronically signed: Rob Kellogg MD. Tino Langston MD IMG FLUOROSCOPY PROCEDURES Final Result * Histology - tissue exam (09/04/2024 11:08 AM EDT) Case Report Surgical Pathology Case: [id number] Authorizing Provider: Tino Langston MD Collected: 09/04/2024 1108 Ordering Location: [facility] Main Operating Room Received: 09/04/2024 1305 Pathologist: Jaxon Acosta MD Specimen: Kidney, KIDNEY STONE FOR ANALYSIS 09/18/2024 4:41 PM EDT [facility] ([facility]) Addendum 09-17-24: This case was sent to the Urolithiasis Laboratory in [place], [place] for chemical analysis (please see accompanying report). Please see results below: Urolithiasis Results: No nidus observed in the specimen The stone is composed of: Calcium oxalate monohydrate: 90% Calcium phosphate (Apatite): 10% 09/18/2024 4:41 PM EDT [facility] ([facility]) Addendum electronically signed by Jaxon Acosta MD on 09/18/2024 at 1641 EDT Final Diagnosis A. Kidney, stone for analysis: - Gross examination consistent with renal calculus. - Specimen forwarded to reference laboratory for chemical analysis. 09/18/2024 4:41 PM T [facility] ([facility]) at 1558 EDT Clinical Information Pre-op diagnosis: Kidney stone [N20.0] 09/18/2024 4:41 PM EDT [facility] ([facility]) Gross Description A. Kidney. The specimen is received fresh labeled Edward Shiets and kidney stone for analysis. It consists of a 0.3 x 0.2 x 0.1 cm yellow-brown, firm, roughened stone. The specimen is for gross examination only and is to be sent to the Urolithiasis lab in [place], [place] for chemical analysis. Rhiannon Mercado, [employer] Truck Driver student Tabitha Aggarwal, [employer] Truck Driver Student 09/18/2024 4:41 PM EDT [facility] ([facility]) Microscopic Description Gross examination only. 09/18/2024 4:41 PM EDT [facility] ([facility]) Stone/Calculus/S ludge (Kidney) 09/04/2024 11:08 AM EDT 09/04/2024 1:05 PM EDT Comment:Pre-op diagnosis: Kidney stone [N20.0] us Obi Ekwenna MD LAB PATHOLOGY ORDERABLES Edited Result - Final [facility] ([facility]) [address] [place] [address] * [place] AN ELECTIVE ENDOTRACHEAL AIRWAY (09/04/2024 9:44 AM EDT) Magdaleno Gandhi MD - 09/04/2024 9:44 AM EDT Iza Corbett MD 09/04/2024 10:23 AM Airway Date/Time: 09/04/2024 9:44 AM Urgency: elective Airway not difficult General Information and Staff Patient location during procedure: OR Anesthesiologist: Magdaleno Ashley MD Resident/MEDICAL CLAIMS ANALYST/CAA: Iza Corbett MD Performed: resident/MEDICAL CLAIMS ANALYST/CAA Learner assisted: NINI Lin Indications and Patient [...] stylet Endotracheal tube insertion site: oral Blade: vEans Blade size: #3 ETT size (mm): 8.0 Cormack-Lehane Classification: grade I - full view of glottis Placement verified by: chest auscultation and capnometry Cuff volume (mL): 10 Measured from: lips ETT to lips (cm): 22 Number of attempts at approach: 1 Magdaleno Ashley MD ANESTHESIA ORDERABLES Final Result * POCT glucose meter (09/04/2024 9:01 AM EDT) Glucose POC 80 70 - 105 mg/dL 09/04/2024 9:21 AM EDT [facility] ([facility]) Comment:milad Blood Capillary blood specimen / Unknown 09/04/2024 9:01 AM EDT 09/04/2024 9:21 AM EDT Travis [facility] ([facility]) - 09/04/2024 9:21 AM EDT Waived Testing in the ED is performed under the ED CLIA certificate #[id number]. us Tino Langston MD LAB BLOOD ORDERABLES Final Resul t [facility] ([facility]) [address] [place] [address] * Cardiac device check - Remote alert ICD (08/31/2024 12:00 AM EDT) Anatomical Region Laterality Modality Other 08/31/2024 us Jg Cason MD CV IMPLANTABLE CARDIAC DEVICE PROCEDURES Final Result * (ABNORMAL) CBC auto differential (08/30/2024 9:53 AM EDT) Auto WBC 6.26 4.00 - 10.60 10*3/uL 08/30/2024 10:15 AM EDT [facility] ([facility]) RBC 4.36 4.20 - 5.70 10*6/uL 08/30/2024 10:15 AM EDT [facility] ([facility]) Hemoglobin 13.3 13.0 - 17.0 g/dL 08/30/2024 10:15 AM T [facility] ([facility]) Hematocrit 42.6 39.0 - 50.0 % 08/30/2024 10:15 AM EDT [facility] ([facility]) MCV 97.7 82.0 - 98.0 fL 08/30/2024 10:15 AM EDT [facility] ([facility]) MCH 30.5 27.0 - 33.0 pg 08/30/2024 10:15 AM EDT [facility] ([facility]) MCHC 31.2(L) 32.0 - 35.0 g/dL 08/30/2024 10:15 AM EDT [facility] ([facility]) RDW 17.0(H) 11.5 - 15.0 % 08/30/2024 10:15 AM EDT [facility] ([facility]) Neutrophils % 65.8 40.0 - 72.0 % 08/30/2024 10:15 AM EDT [facility] ([facility]) Lymphocytes % 20.6 20.0 - 45.0 % 08/30/2024 10:15 AM T [facility] ([facility]) Monocytes % 8.5 5.0 - 12.0 % 08/30/2024 10:15 AM T [facility] ([facility]) Eosinophils % 3.8 0.0 - 6.0 % 08/30/2024 10:15 AM T [facility] ([facility]) Basophils % 1.0 0.0 - 1.0 % 08/30/2024 10:15 AM T [facility] ([facility]) Neutrophils Absolute 4.12 1.60 - 7.60 10*3/uL 08/30/2024 10:15 AM T [facility] ([facility]) Lymphocytes Absolute 1.29 1.20 - 4.00 10*3/uL 08/30/2024 10:15 AM [facility] ([facility]) Monocytes Absolute 0.53 0.10 - 1.00 10*3/uL 08/30/2024 10:15 AM T [facility] ([facility]) Eosinophils Absolute 0.24 0.00 - 0.50 10*3/uL 08/30/2024 10:15 AM T [facility] ([facility]) Basophils Absolute 0.06 0.00 - 0.20 10*3/uL 08/30/2024 10:15 AM [facility] ([facility]) Platelets 189 150 - 400 10*3/uL 08/30/2024 10:15 AM T [facility] ([facility]) nRBC % 0.0 0 % 08/30/2024 10:15 AM [facility] ([facility]) Immature Granulocytes % 0.3 0.0 - 1.0 % 08/30/2024 10:15 AM [facility] ([facility]) Immature Granulocytes Absolute 0.02 0.00 - 0.20 10*3/uL 08/30/2024 10:15 AM [facility] ([facility]) Blood Venous blood specimen / Unknown Venipuncture / Unknown 08/30/2024 9:53 AM EDT 08/30/2024 10:01 AM EDT Obcarlita Langston MD LAB BLOOD ORDERABLES Final Resul t Performing Organization Address City/[facility] Co de Phone Number [facility]) [address] [place] [phone] * APTT (08/30/2024 9:53 AM EDT) aPTT 30.3 25.0 - 35.0 Seconds 08/30/2024 10:24 AM EDT [facility] ([facility]) Comment:Clinical significanc e of the APTT is questionable in the presence of heparin. Blood Venous blood specimen / Unknown Venipuncture / Unknown 08/30/2024 9:53 AM EDT 08/30/2024 9:58 AM EDT Obcarlita Langston MD LAB BLOOD ORDERABLES Final Resul t Performing Organization Address [facility] de Phone Number [facility]) [address] [place] [phone] * (ABNORMAL) Protime-INR (08/30/2024 9:53 AM EDT) Protime 14.7 12.3 - 14.8 Seconds 08/30/2024 11:01 AM EDT [facility] ([facility]) INR 1.15(H) 0.90 - 1.10 08/30/2024 11:01 AM EDT [facility] ([facility]) Comment: [facility] RECOMMENDED INR FOR WARFARIN THERAPY CONDITION INR [...] ORDERABLES Final Resul t Performing Organization Address City/[facility]/ZIP Co de Phone Number [facility]) [address] [place] [phone] * TSH (08/30/2024 9:53 AM EDT) TSH 2.01 0.34 - 5.60 mIU/L 08/30/2024 10:42 AM EDT [facility]) Blood Venous blood specimen / Unknown Venipuncture / Unknown 08/30/2024 9:53 AM EDT 08/30/2024 10:01 AM EDT Eren Johansen CNP LAB BLOOD ORDERABLES Final Resul t Performing Organization Address City/[facility]/ZIP Co de Phone Number [facility]) [address] [place] [phone] * T4, free (08/30/2024 9:53 AM EDT) Free T4 1.24 0.71 - 1.85 ng/dL 08/30/2024 10:42 AM EDT [facility]) Blood Venous blood specimen / Unknown Venipuncture / Unknown 08/30/2024 9:53 AM EDT 08/30/2024 10:01 AM EDT Eren Johansen STRATEGIC DEBRIEFING OFFICER LAB BLOOD ORDERABLES Final Resul t [facility] ([facility]) [address] [place] [address] * External CBC (08/28/2024) External WBC 6.5 [...] 1:07 PM 03/06/2024 7:44 PM Care Teams [employer]cery [employer] Bagger Relationship Specialty Start Date End Date Mere Gerber CNP [address] [place] [address], [address] [place], [place] [phone] PCP - General Family Medicine 01/10/24
--- OUTSIDE RECORDS SUMMARY | 2024-11-25 16:39 | XMS_ITS | Clinical Summary ---
Author Organization [facility] Address [address] [place] [address] Care Team Providers Care Cleaner Operator Name Role Phone Gloria Quintana MERGERS AND ACQUISITIONS ATTORNEY Unavailable [phone] Social History Tobacco Use Types Packs/Day [...] 2025 Insurance [employer] Care Teams Cleaner Operator Relationship Specialty Start Date End Date Gloria Quintana NP [address] [place] [address] [address] [place] [address] MYRIAM Sierra MA 10/13/24
--- OUTSIDE RECORDS SUMMARY | 2024-11-25 16:39 | XMS_ITS | Encounter Summary ---
Author Organization [facility] Address [address] [place] [address] Care Team Providers Care Door Tender Name Role Phone Gloria Quintana BRAIDING OPERATOR Unavailable [phone] Encounter Details Date Type Department Care Team (Late st Contact Info) Description 07/18/2024 Abstract [facility] [address] [place] [id number] Unallocated, Noms Provider, [address] [place] [address] Social History Tobacco Use Types Packs/Day Years [...] on filedocumented in this encounter Care Teams Door Tender Relationship Specialty Start Date End Date Gloria Quintana NP [address] [place] [address] PCP - Rigo MITCHELL 10/13/24 documented as of this encounter
--- OUTSIDE RECORDS SUMMARY | 2024-11-25 16:39 | XMS_ITS | Encounter Summary ---
Author Organization [facility] Address [address] [place] [address] Care Team Providers Care Gang Sawyer Name Role Phone Mere Gerber CNP Primary Care Provider [phone] Encounter Details Date Type Department Care Team (Late st Contact Info) Description 11/12/2024 Orders Only [facility] Heart at [facility] [address] [place] [address] Eliana Hubbard CNP [address] [place] [address] Social History Tobacco Use Types Packs/Day Years Used Date Smoking Tobacco: Former Cigarettes Smokeless Tobacco: Never Alcohol Use Standard Drinks/Week Comments Not Currently 0 (1 standard drink = 0.6 oz pur e alcohol) [facility] Utilities Answer Date Recorded In the past 12 months has [facility] [employer], gas, oil, or water [employer] threatened to shut off services in your [...] place to sleep or slept in a [place] (including now)? No 02/26/2024 Hunger Vital Sign [...] Description 11/29/2024 3:20 PM EDT Office Visit [facility] [address] [place] [address] Eren Johansen, STOCK MIXER [address] [place] [address] 12/09/2024 3:30 PM EDT Office Visit [facility] [address] [place] [address] Phong Kelley MD [address] [facility] [place] [phone] 01/17/2025 11:00 AM EDT Follow-Up [facility] Urology [address] [facility] [place] [phone] Tino Langston MD [address] [place] [address] [address] [place] [address] documented as of this encounter Procedures Procedure Name Priority Date/Time Associated Diagnosis Comments B-TYPE NATRIURETIC PEPTIDE Routine 11/11/2024 2:19 PM EDT BASIC METABOLIC PANEL Routine 11/11/2024 2:19 PM EDT documented in this encounter Results * B-type natriuretic peptide (11/11/2024 2:19 PM EDT) Blood Venous blood specimen / [facility] Final Re sult * Basic metabolic panel (11/11/2024 2:19 PM EDT) Blood Venous blood specimen / Unknown [facility] LAB BLOOD ORDERABLES Final Re sult documented in this encounter Visit Diagnoses Not on filedocumented in this encounter Care Teams Gang Sawyer Relationship Specialty Start Date End Date Mere Gerber CNP [address] [place] [address], [place] [address] PCP - General Family Medicine 01/10/24 documented as of this encounter
--- OUTSIDE RECORDS SUMMARY | 2024-11-25 16:39 | XMS_ITS | Encounter Summary ---
Author Organization [facility] Address [address] [place] [address] Care Team Providers Care Director Of Midwifery/Staff Midwife Name Role Phone Mere Gerber CNP Primary Care Provider [phone] Encounter Details Date Type Department Care Team (Late st Contact Info) Description 08/31/2024 Orders Only [facility] [address] [place] [address] Jg Cason MD [address] [place] [address] Social History Tobacco Use Types Packs/Day Years Used Date Smoking Tobacco: Former Cigarettes Smokeless Tobacco: Never Alcohol Use Standard Drinks/Week Comments Not Currently 0 (1 standard drink = 0.6 oz pur e alcohol) [facility] Utilities Answer Date Recorded In the past 12 months has e [employer], gas, oil, or water [employer] threatened to shut off services in your [...] place to sleep or slept in a [facility]cf (including now)? No 02/26/2024 Hunger Vital Sign [...] Description 11/29/2024 3:20 PM EDT Office Visit [facility] [address] [place] [address] Eren Johansen, PRINTING WORKER SUPERVISOR [address] [place] [address] 12/09/2024 3:30 PM EDT Office Visit [facility] [address] [place] [address] Phong Kelley MD [address] [facility] [place] [address] 01/17/2025 11:00 AM EDT Follow-Up [facility] Urology [address] [place] [address] Tino Langston MD [address] [place] [address] [address] [place] [address] documented as of this encounter [...] on filedocumented in this encounter Care Teams Director Of Midwifery/Staff Midwife Relationship Specialty Start Date End Date Mere Gerber CNP [facility], [facility] [place] [address] PCP - General Family Medicine 01/10/24 documented as of this encounter
[2024-11-25 17:33] LABS: Anion Gap 13.4; Blood Urea Nitrogen 35.0 mg/dL (7.0-18.0); Calcium 9.3 mg/dL (8.5-10.1); Carbon Dioxide 27.4 mmol/L (21.0-32.0); Chloride 104 mmol/L (98-107); Estimated GFR (African America 23 (>=60 mL/min/1.73m^2); Estimated GFR (Non-African Ame 19 (>=60 mL/min/1.73m^2); Glucose 100 mg/dL (74-106); NT Pro B Type Natriuretic Pept 268.0 pg/mL (<=1800.0); Potassium 4.8 mmol/L (3.5-5.1); Sodium 140 mmol/L (136-145)
== END 2024-11-25 16:36 | disposition home or self-care (01) ==
LOC: LAB 16:36
PROVIDERS: PCP Family Medicine
DX: R06.02 Shortness of breath (principal); I25.83 Coronary atherosclerosis due to lipid rich plaque
CPT/HCPCS: 36415; 80048; 83880

== ENCOUNTER 2024-12-07 08:30 | Outpatient (OUT) | payer MEDICARE, SELFPAY ==
--- OUTSIDE RECORDS SUMMARY | 2024-08-20 12:15 | XMS_ITS ---
Author Organization [facility] in [place] Address [address] [place] [address] Care Team Providers Care Coin Wrapping Machine Operator Name Role Phone Mere Gerber Primary Care Provider Allergies No Known Allergies REASON FOR VISIT Presents to office with son for 6 month f/u, Sees Cardio August 28- [facility] Cardio Medications Medication SIG (Take, Route, Frequency, Duration) Notes Start Date End Date Status Albuterol Sulfate (2.5 MG/3ML) 0.083% 3 mL as needed Inhalation every 6 hrs 04/03/2024 Active Atorvastatin Calcium 80 MG 1 tablet Oral ly Once a day Active Amiodarone HCl 200 MG 1 tablet Orally tw ice daily 04/03/2024 Active Carvedilol 3.125 MG TAKE 1 TABLET BY VERNA TH TWICE A DAY Oral for 30 Days Active Clopidogrel Bisulfate 75 MG 1 tablet Ora lly Once a day Active Vitamin D (Ergocalciferol) 1.25 MG (69160 UT) 1 capsule Orally daily Active Walker with Wheels -- Use walker daily t o safely complete ADLs- DX I21.6 and M62.81 for 365 days 01/05/2024 Active Spironolactone 25 MG 1/2 tablet Orally o nce daily 04/03/2024 Active Memantine HCl ER 21 MG TAKE 1 CAPSULE BY MOUTH EVERY DAY FOR 30 DAYS for 90 days Active Lasix 40 MG 1 tablet Orally every morning for 5 days As needed 02/23/2024 Active Farxiga 10 MG 1 tablet Orally Once a day 04/03/2024 Active Social History Tobacco Use: Social History Observation Description Date Details (start date - stop date) Former Smoker NA - NA Tobacco Control (Standard) Question Answer Notes Tobacco use: Former smoker How long has it been since you last smoked? 5-10 years Vital Signs Weight 202.0 lbs 08/20/2024 Height 72 in 08/20/2024 Blood pressure systolic 98 mm Hg 08/21/19 25 Blood pressure diastolic 56 mm Hg 025 BMI 27.39 kg/m2 08/20/2024 Encounters Encounter Location Date Provider Diagnosis [facility] [address] [place] [address] 08/20/2024 Mere Gerber HTN (hypertension) I10 Assessments Encounter Date Diagnosis (ICD Code) Assessment Notes Treatment Notes Treatment Clinical Notes Section Notes 08/20/2024 HTN (hypertension) (ICD-10 - I10) controlled, fu cardiology Plan Of Treatment Treatment Notes Assessment Notes HTN (hypertension) controlled, fu cardiology Next Appt Details Follow Up: prn, Reason: Progress Notes * INR NeptaliDOB:1945 (79 yo M)Acc No.[id number]:08/20/2024 Progress Note Patient: Neptali TORREZ Provider: Angelica Gerber ([facility]), CUFF STITCHER :1945 A ge:79 Y S ex:Male Date:08/20/2024 Address:[address] [place], [place] [id number] Check In:04:02 PM ESTCheck O ut:04:30 PM EST Subjective: * Chief Complaints: * 1 . Presents to office with son for 6 month f/u. 2. Sees Cardio August 28- [facility] Cardio. * HPI: G eneral: home now sees cardiology next week echo recently, needs clearance before next kidney procedure [facility] request record taking meds ok sleeps ok walker, shower chair, wheelchair- borrowed [facility]. * ROS: G eneral/Constitutional: Fever d enies. H eadache d enies. W eight loss?denies. O phthalmologic: Discharge d enies. E ye Pain d enies. I tching and redness d enies. E NT: Nasal discharge d enies. N maxx congestion d enies.?Sore throat d enies. C ardiovascular: Chest tightness/ heavy pressure d enies. R apid heart rate d enies. S welling of extremities d enies. C hest pain d enies. ? R espiratory: Productive cough d enies. C hest pain d enies. C ough d enies. S hortness of breath d enies. W heezing d enies. ? G astrointestinal: Abdominal pain d enies. C onstipation d enies. D ecreased appetite d enies. D iarrhea d enies. N ausea d enies. V omiting?denies. G enitourinary: Urinary incontinence d enies. P ainful urination d enies. M usculoskeletal: Patient complaining of u sing walker , gen weakness. B ack pain d enies. N sukhdev pain d enies. M uscle aches d enies. S kin: Rash d enies. S kin lesion(s) d enies. ? 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 * Surgical History: C ardiac Stent Placement , Defibrillator placement , Lithotripsy x2 2024. * Hospitalization/Major Diagno stic Procedure: S ee Above . * Family History: F ather: , diagnosed with Other malignant neoplasm of unspecified site. M other: , Alzheimers. B rother(s): alive. S ister(s): alive. S on(s): , Asthma, Hypercholesterolemia, Migraines. 6 brother(s) , 3 sister(s) . 1 son(s) - healthy. . * Social History: T obacco Use: T obacco Control (Standard) T obacco use: F ormer smoker H ow long has it been since you last smoked??5-10 years * Medications: T aking Albuterol Sulfate (2.5 MG/3ML) 0.083% Nebulization Solution 3 mL as needed Inhalation every 6 hrs , Taking Amiodarone HCl 200 MG Tablet 1 tablet Orally twice daily , Taking Atorvastatin Calcium 80 MG Tablet 1 tablet Orally Once a day , Taking Carvedilol 3.125 MG Tablet TAKE 1 TABLET BY MOUTH TWICE A DAY Oral , Taking Clopidogrel Bisulfate 75 MG Tablet 1 tablet Orally Once a day , Taking Farxiga(Dapagliflozin Propanediol) 10 MG Tablet 1 tablet Orally Once a day , Taking Lasix(Furosemide) 40 MG Tablet 1 tablet Orally every morning As needed, Taking Memantine HCl ER 21 MG Capsule Extended Release 24 Hour TAKE 1 CAPSULE BY MOUTH EVERY DAY FOR 30 DAYS , Taking Spironolactone 25 MG Tablet 1/2 tablet Orally once daily , Taking Vitamin D (Ergocalciferol) 1.25 MG (00779 UT) Capsule 1 capsule Orally daily , Taking Walker with Wheels -- -- Use walker daily to safely complete ADLs- DX I21.6 and M62.81 , Discontinued Apixaban 5 MG Tablet 1 tablet Orally twice daily , Discontinued Doxycycline , Notes to Pharmacist: 100mg- BID- 10 days, Discontinued Ipratropium-Albuterol 0.5-2.5 (3) MG/3ML Solution 3 mL Inhalation every 6 hrs- PRN , Discontinued Metoprolol Succinate 25 MG Capsule ER 24 Hour Sprinkle 1 capsule Orally Once a day , Discontinued Namenda XR 7 MG Capsule Extended Release 24 Hour 1 capsule Orally Once a day , Medication List reviewed and reconciled with the patient * Allergies: N .K.D.A. Objective: * Vitals: W t:202.0lbs, Ht: 72 in, BP:98/56mm Hg, BMI:27.39Index, Ht-cm: 182.88 cm, Wt-k.63 kg. * Examination: G eneral Examinations: GENERAL APPEARANCE: a lert and oriented, i n no acute distress. EYES: c onjunctiva normal, sclera non-icteric. NOSE: n ormal external appearance. LUNGS: c lear to auscultation bilaterally. CARDIO: r egular rate and rhythm, S1, S2 normal. ABDOMEN: s oft, nontender. MUSCULOSKELETAL: g en weakness, using walker. SKIN: w arm and dry. Assessment: * Assessment: 1. H TN (hypertension) - I10 (Primary) Plan: * Treatment: * Preventive Medicine: Screenings/Counseling: B [place] ACTION PLAN Above Normal BMI Follow-up D ietary management education, guidance, and counseling See treatment section of progress note for complete details of management plan. F ALL RISK SCREENING Fall Risk Assessment: N o falls in the past year * Follow Up: p rn * * Electronically signed by Adeola Gerber , ELROY, RADIOLOGY CT TECHNOLOGIST.CUFF STITCHER.[id number] on 08/22/2024 at 09:02 AM EDT Sign off status: Completed Visit Status: C HK (Check Out) true * Provider: Angelica Gerber ([facility]), CUFF STITCHER Date: 0 08/20/2024 Generated for Diego culp/Serina/Anayeliitting on: 0 12/07/2024 08:34 AM EDT History and Physical Notes * HPI (History of Present Illness) Category Sub-Category Detail Notes Category Not es General home now sees cardiology next week echo recently, needs clearance before next kidney procedure [facility] request record taking meds ok sleeps ok walker, shower chair, wheelchair- borrowed [facility] Examination Category Sub-Category Detail Notes Category Not es General Examinations GENERAL APPEARANCE: alert a nd oriented, in no acute distress EYES: conjunctiva normal, sclera non-icteric EARS: NOSE: normal external appe arance THROAT: CARDIO: regular rate and rhy thm, S1, S2 normal LUNGS: clear to auscultatio n bilaterally ABDOMEN: soft, nontender SKIN: warm and dry BACK: MUSCULOSKELETAL: gen weakness, using walker LYMPH NODES:
--- OUTSIDE RECORDS SUMMARY | 2024-11-25 14:09 | XMS_ITS ---
Author Organization [facility] [place] Address [address] [place] [address] Care Team Providers Care Hand Buffing Wheel Former Name Role Phone Mere Gerber Primary Care Provider REASON FOR VISIT lab results Medications Medication SIG (Take, Route, Fr equency, Duration) Notes Start Date End Date Status Bumetanide 1 MG 1 tablet Orally twic e daily for 30 days 11/27/2024 Active Spironolactone 25 MG 1 tablet Orally once daily Active Encounters Encounter Location Date Provider Diagnosis [facility] [address] [place] [address] 11/25/2024 Mere Gerber Edema R60.9 Assessments Encounter [...] Notes * Neptali LOYOLADOB:1945 (79 yo M)Acc No.[id number]:11/25/2024 Patient: Neptali TORREZ :1945 A ge:79 Y S ex:Male Address:[address] [place] [address], [address] * Refills Refill Spironolactone Tablet, 25 MG, Orally, 1 tablet, once daily Stop Lasix Tablet, 40 MG, Orally, 1 tablet, every morning Start Bumetanide Tablet, 1 MG, Orally, 1 tablet, twice daily, 30 days * true * Date: Generated for Diego clup/Serina/Rachael on: 0 12/07/2024 08:34 AM EDT
--- OUTSIDE RECORDS SUMMARY | 2024-11-29 15:20 | XMS_ITS | Encounter Summary ---
Author Organization [facility] Address [address] [place] [address] Care Team Providers Care Melting Supervisor Name Role Phone Mere Gerber CNP Primary Care Provider [phone] Encounter Details Date Type Department Care Team (Late st Contact Info) Description 11/29/2024 3:20 PM EDT Office Visit [facility] Heart at [facility] [address] [place] [address] Eren Johansen CNP [address] [place] [address] Acute HFrEF (heart failure with reduced ejection fraction) (CMS/HCC) (Primary Dx); Acute kidney injury superimposed on CKD; Bilateral lower extremity edema; Chronic venous insufficiency; Paroxysmal atrial fibrillation (CMS/HCC); ICD (implantable cardioverter-defibril lator) in place; Benign hypertensive heart disease with heart failure (CMS/HCC); Mixed hyperlipidemia; Chronic systolic heart failure (CMS/HCC) Social History Tobacco Use Types Packs/Day Years Used Date Smoking Tobacco: Former Cigarettes Smokeless Tobacco: Never Alcohol Use Standard Drinks/Week Comments Not Currently 0 (1 standard drink = 0.6 oz pur e alcohol) [facility] Utilities Answer Date Recorded In the past 12 months has [employer], gas, oil, or water [employer] threatened to shut off services in your [...] place to sleep or slept in a custodial (including now)? No 02/26/2024 Hunger Vital Sign [...] Sign Reading Time Taken Comments Blood Pressure 78/50 11/29/2024 3:04 PM EDT Pulse 62 11/29/2024 3:04 PM EDT Temperature - - Respiratory Rate - - Oxygen Saturation 94% 11/29/2024 3:04 PM EDT Inhaled Oxygen Concentration - - Weight 96.6 kg (213 lb) 11/29/2024 3:04 PM EDT Height 182.9 cm (6') 11/29/2024 3:04 PM EDT Body Mass Index 28.89 11/29/2024 3:04 PM EDT documented in this encounter Progress Notes * Eren Johansen, STRUCTURAL BIOLOGIST - 11/29/2024 3:20 PM EDT Images from the original note were not included. SUBJECTIVE Reason for Visit: Neptali Reeves is a 79 y.o. year old male patient being seen for heart failure follow-up visit. HPI: Neptali Reeves is a 79 y.o. year old male with significant medical history of cardiac arrest/v.fibs/p ICD, HFrEF, ICM, CAD s/p PCI 2007, HTN, HLD, pulm HTN, CKD, and PAF. 11/29/2024 office visit: Patient seen and evaluated in the office today, he is accompanied by his son Patrice. He reports feeling well, has no complaints. HAGER is stable. He reports his lower extremity swelling is much improved. His weight is down 11 pounds since last visit 11/18/2024. He reports his urine output is very high. I had switched him from Lasix to Bumex; renal function has acutely worsened. He denies chest pain, palpitations, lightheadedness or dizziness, or presyncope or syncopal episodes. 11/18/2024 office visit: Patient seen evaluated in the office today, he is accompanied by his son. He reports his dyspnea onexertion is stable. He denies chest pain, palpitations, lightheadedness or dizziness. Endorses his lower extremity swelling is about the same from prior visit. He is up 2 pounds from about a week ago. 11/12/2024 office visit (Eliana Hubbard): Patient is here for a 2 week follow up. Patient has started Entresto. Patient states he hasn't noticed any change with the Entresto. Patient states he still has a lot of swelling in his legs, patientdoes get tired and short of breath with walking very far. Patient does fine walking to the bathroomand short distances. BP at home has been okay per pt's son, not too low. Pt has denied any c/o dizziness/LH. He did have a fall last week. He was reaching down for a can of pop and lost his balance. Denied hitting his head. His leg swelling is unchanged. Denies c/p CP, orthopnea, PND, palpitations, syncope. 10/30/2024 office visit (Eliana Hubbard): He has worsened leg swelling. He has [...] c/o CP, orthopnea, PND, palpitations, dizziness, syncope. 04/24/2024: Patient here for 3 week follow up cardiac arrest s/p ICD, CAD, CHF, and PAF. [id number] doesn't believe he's taking lasix right now. Also hasn't been taking metoprolol because it isn't able to be crushed. He denies chest pain and SOB. He has been feeling well. Leg swelling has been stable. He has PT working with him at home. He notes some HAGER. Denies c/o CP, orthopnea, PND, dizziness/LH, palpitations, syncope. 08/28/2024 office visit: Patient is seen and evaluated in the office today, accompanied by his son and pdzkviai-uj-jje. Theyreport that Eliquis was discontinued approximately one month ago due to ongoing hematuria and anemia. He has a history of multiple cystoscopies related to kidney stones. The patient currently has no complaints and denies chest pain, shortness of breath, palpitations, lightheadedness, or dizziness. 04/24/2024 office visit (Eliana Hubbard, LIONEL): Patient here for 3 week follow up cardiac arrest s/p ICD, CAD, CHF, and PAF. Pvnjlgno-fr-nbo doesn't believe he's taking lasix right now. Also hasn't been taking metoprolol because it isn't able to be crushed. He denies chest pain and SOB. He has been feeling well. Leg swelling has been stable. He has PT working with him at home. He notes some HAGER. Denies c/o CP, orthopnea, PND, dizziness/LH, palpitations, syncope. Medical History[1] Surgical History[2] Problem List[3] family history includes Cancer in his brother, father, and sister; Coronary artery disease in his mother. Social History[4] OBJECTIVE Visit Vitals Smoking Status Former Physical Exam Constitutional: General Appearance: well-developed, appears stated age. Level of Distress: no acute distress. Neck: Jugular Veins: normal jugular venous pressure. Lungs: Auscultation: no rales or rhonchi and normal breath sounds. Cardiovascular: Rate And Rhythm: regular Heart Sounds: normal S1 and s2; Systolic Murmur: not heard. Diastolic Murmur: not heard. Extremities: +2 LE edema left leg, +3 LE edema right leg Peripheral Pulses: Pulses: full and equal in all extremities except if noted. Abdomen: Inspection and Palpation: non distended or tender and soft. Musculoskeletal: Inspection: no joint tenderness or swelling. Neurologic: Gait: normal gait. Psychiatric: Mental Status: alert and normal affect. Skin: Inspection and Palpation: warm and dry. Allergies: Allergies[5] Outpatient Medications: Current Outpatient Medications Medication Instructions acetaminophen (TYLENOL) 1,000 mg, Every 6 hours PRN albuterol 2.5 mg, Every 4 hours PRN amiodarone (PACERONE) 200 mg, oral, 2 times daily apixaban (ELIQUIS) 5 mg, oral, 2 times daily atorvastatin (LIPITOR) 80 mg, oral, Nightly bumetanide (BUMEX) 1 mg, oral, 2 times daily carvedilol (COREG) 3.125 mg, oral, 2 times daily cholecalciferol (VITAMIN D3) 400 Units, Daily clopidogrel (Plavix) 75 mg tablet TAKE 1 TABLET BY MOUTH EVERY DAY dapagliflozin propanediol (FARXIGA) 10 mg, oral, Once Daily lidocaine (Lidoderm) 5 % patch 1 patch, Daily RT memantine (Namenda XR) 7 mg capsule,sprinkle,ER 24hr Daily potassium chloride (Klor-Con) 20 mEq packet Take 40 mEq by mouth in the morning AND 20 mEq daily with evening meal. potassium chloride (Klor-Con) 20 mEq packet 20 mEq, oral, 2 times daily potassium chloride CR (K-Tab) 20 mEq ER tablet 20 mEq, oral, 2 times daily, Do not crush, chew, or split. This is a decrease sacubitril-valsartan (Entresto) 24-26 mg tablet 1 tablet, oral, 2 times daily spironolactone (ALDACTONE) 25 mg, oral, Once Daily Recent Labs: Ancillary Procedure on 10/29/2024 Component Date Value BSA 11/25/2024 2.27 I have personally reviewed and anaylzed the following laboratory results above. These findings havebeen analyzed in the context of the patient's clinical presentation. Cardiovascular Diagnostic Studies: Echo 08/09/2024: Conclusion: Left ventricular: Left ventricular appears normal in size. Systolic function is severely decreased with an ejection fraction of 25 to 30%. Grade 1 diastolic dysfunction (impaired relaxation) is present. Lateral E prime is 4.06 cm/s. Medial E prime is 3.96 cm/s. This the study was difficult due to patient's poor history windows. Echo (limited): 02/28/2024 Left Ventricle: The left ventricle is [...] better delineation of endocardial borders. Cardiac cath: 02/27/2024: Final Impression: 1) Elevated pulmonary and right [...] PERFORMED: 1. Implantation of dual chmaber ICD ([employer]) 2. Ultrasound guided venous access INDICATIONS: 1. Dilated ischemic cardiomyopathy 2. NYHA class II-III 12 Lead ECG 06/28/2024: Cardiac device check 08/27/2024: Routine EP device follow up as per schedule. Lead thresholds are stable. THORACIC IMPEDANCE VALUES Heart[employer] revieweda dn is normal. HF Index is 12. TI is 59.7 ohms OVERHEAD CRANE INSPECTOR RVP58.0% 12 Lead ECG: Result Text IMPRESSION: Sinus rhythm with 1st degree A-V block Right bundle branch block Left anterior fascicular block Bifascicular block Possible Lateral infarct , age undetermined Abnormal ECG Confirmed by Dariana Perkins ([id number]) on 06/26/2024 5:59:18 PM Cardiac device check 11/26/2024: I have personally reviewed and analyzed all available cardiac diagnostic tests and imaging reports.Findings have been analyzed in the context of the patient's clinical status. Assessment and Plan #HFrEF #Ischemic cardiomyopathy #Bilateral lower extremity edema #ICD NYHA Class II-III Complicated by DEN on CKD limiting GDMT therapies LE edema likely multifactorial, secondary to both HFrEF and chronic venous insufficiency Responded to switch to Bumex - reports very high urine output and down 11 pounds since 11/18; weight today is 213 pounds (previously 224 lbs 11/18/2024, 221 lbs on 11/12) ---> although renal function has acutely worsened RHC in February 2024 showed elevated pulmonary and right heart pressures with normal left left heartpressures Last TTE (08/09/2024) showed EF 25-30%, EF 40% in 2007. Labs 11/25/2024: Sodium 140, potassium 4.8, BUN 35, creatinine 3.14, EGFR 19, proBNP 268 Labs 11/18/2024: Sodium 148, potassium 4.7, BUN 16 , creatinine 1.63, EGFR 41 Labs 11/11/2024: Sodium 144, potassium 2.6, BUN 24 creatinine 1.89, EGFR 35, proBNP 360 ICD transmission 11/12/2024: Heart[employer] index mildly elevated at 10 (threshold 6); thoracic impedance values have remained relatively stable w/out abrupt or significant declines, suggesting mild, early congestion CXR 11/18/24 no evidence of vascular congestion GDMT limited by DEN on CKD: - Continue carvedilol 3.125 mg BID - Continue Farxiga 10 mg daily - Continue Entresto 24/26 mg BID - On Bumex- trialed (I switched from Lasix prior visit 11/18/2024) ---> discontinue (hold) - On spironolactone to 25 mg (increased prior visit 11/18/2024) ---> discontinue (hold) - Repeat TTE ---> scheduled Given worsening renal function limiting diuretic use and complexity of volume management, will order RHC to objectively assess volume status, guide precise fluid management, and evaluate pulmonary pressures and CO #DEN on CKD Worsening Reports high urine output with switch to Bumex since prior visit Labs 11/25/2024: Sodium 140, potassium 4.8, BUN 35, creatinine 3.14, EGFR 19, calcium 9.3, proBNP 268 Labs 11/18/2024: Sodium 148, potassium 4.7, glucose 109, creatinine 1.63, EGFR 41, calcium 9.5, magnesium 2.,2 Labs 11/11/2024: Sodium 144, potassium 2.6, glucose 94, BUN 24, creatinine 1.89, EGFR 35, calcium 9.3, proBNP 360 - Discontinue spironolactone, Bumex, potassium supplement ---> repeat BMP in 1 week - Follow-up with nephrology; not due to see head resident until January #Paroxysmal atrial fibrillation JOHNATHON?DS?-VASc = 5 (heart failure, hypertension, age, prior NE) Patient denies palpitations. Pulse regular on manual exam, consistent with sinus rhythm. Patient discontinued Eliquis 2 months ago due to hematuria and anemia. Also reports fall about a month ago and ongoing balance concerns. Discussed alternative stroke prevention strategy with LAAO device (e.g., Watchman). Patient interested and will follow up with Dr. Kelley. - Continue carvedilol 3.125 mg BID - Continue amiodarone 200 mg daily #Cardiac arrest/V-fib hx 02/26/2024 #Status post dual-chamber ICD implant 03/04/2024 - Continue amiodarone 200 mg BID - Continue q6-monthly device checks #CAD Coronary artery disease status post PCI of the left circumflex artery in 2007 Denies chest pain Cardiac catheterization 02/27/2024 showed mild mild coronary artery disease with elevated pulmonaryand right heart pressures and normal left heart pressures - Continue carvedilol 3.125 mg twice daily - Continue clopidogrel 75 mg daily - Continue atorvastatin 80 mg daily #Chronic venous insufficiency +2 left LE edema, +3 bilateral lower extremity edema Much improved since last visit 11/18/2024 Edema likely multifactorial--due to both venous stasis and heart failure - Continue daily use of compression stockings - Encourage leg elevation and ambulation when feasible #Hypertension Blood pressure today is 78/50, HR 62 He is asymptomatic denies lightheadedness or dizziness, or presyncope or syncopal episodes Instructed to record blood pressures in the morning before medication, again 1-2 hours after takingit, and in the evening. They were advised to bring a detailed BP log to the next visit to help guide adjustments to antihypertensive therapy - Continue carvedilol 3.125 mg twice daily #Hyperlipidemia Last lipid panel reviewed 02/26/2024: LDL 44, HDL 37, triglycerides 59 Stable, well-controlled - Continue atorvastatin 80 mg daily Plan Overview: Will discontinue (hold) Bumex, spironolactone, potassium in the setting of acutely worsening renal function Tentative RHC to guide further management Repeat TTE ---> scheduled Repeat labs in approximately [address] Kelley on 12/09/2024 to discuss Watchman placement, HF management No follow-ups on file. Eren Johansen, [facility] Cardiovascular Medicine [1] Past Medical History: Diagnosis Date Abnormal ECG Acute combined systolic and diastolic heart failure (CMS/HCC) Afib (CMS/HCC) Arrhythmia Arrhythmia Atrial fibrillation (CMS/HCC) Bladder infection Cardiac arrest (CMS/HCC) CHF (congestive heart failure) (CMS/HCC) Chronic kidney disease Coronary artery disease Cystitis without hematuria DJD (degenerative joint disease) GERD (gastroesophageal reflux disease) H/O heart artery stent History of transfusion Hyperlipidemia Hypertension Intellectual disability Kidney stone Myocardial infarction (CMS/HCC) Paroxysmal SVT (supraventricular tachycardia) [2] Past Surgical History: Procedure Laterality Date CARDIAC CATHETERIZATION CARDIAC DEFIBRILLATOR PLACEMENT CATARACT EXTRACTION CYSTOURETHROSCOPY INSERT / REPLACE / REMOVE PACEMAKER [3] Patient Active Problem List Diagnosis Cardiac arrest (CMS/HCC) Coronary atherosclerosis Disorder of lipid metabolism Essential hypertension Hypercholesteremia Kidney stone Old myocardial infarction Paroxysmal supraventricular tachycardia 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) Ventricular fibrillation (CMS/HCC) Chronic systolic heart failure (CMS/HCC) ICD (implantable cardioverter-defibrillator) in place Paroxysmal atrial fibrillation (CMS/HCC) Benign hypertensive heart disease with heart failure (CMS/HCC) Staghorn calculus Kidney stones Fall in home Loose stools [4] Social History Tobacco Use Smoking status: Former Types: Cigarettes Smokeless tobacco: Never Vaping Use Vaping status: Never Used Substance Use Topics Alcohol use: Not Currently Drug use: Never [5] No Known Allergies documented in this encounter Plan of Treatment Upcoming Encounters Date Type Department Care Team (Late st Contact Info) Description 12/09/2024 3:30 PM EDT Office Visit [facility] [address] [place] [phone] Phong Kelley MD [address] [place] [address] 12/19/2024 11:00 AM EDT Hospital Encounter [facility] [address] [place] [address] Phong Kelley MD [address] [place] [address] Acute HFrEF (heart failure with reduced ejection fraction) (CMS/HCC) 12/19/2024 11:00 AM EDT - 12/19/2024 12:00 PM EDT Surgery [facility] [address] [place] [address] Phong Kelley MD [address] [facility] [place] [address] Right heart cath [[id number] (CPT )] 01/17/2025 11:00 AM EDT Follow-Up [facility] Urology [address] [place] [address] Tino Langston MD [facility] [address] [place] [address] Scheduled Orders Name Type Priority Associated Diagnoses Orde r Schedule Basic metabolic panel Lab Routine Chronic systolic heart failure (CMS/HCC) Expected: 12/06/2024 (Approximate), Expires: 11/29/2025 Pro-BNP Lab Routine Chronic systolic heart failure (CMS/HCC) Expected: 12/06/2024 (Approximate), Expires: 11/29/2025 CBC and differential Lab Routine Chronic systolic heart failure (CMS/HCC) Expected: 11/29/2024 (Approximate), Expires: 11/29/2025 documented as of this encounter Visit Diagnoses Diagnosis Acute HFrEF (heart failure with reduced ejection fraction) (CMS/HCC)- Primary Acute kidney injury superimposed on CKD Bilateral lower extremity edema Chronic venous insufficiency Unspecified venous (peripheral) insufficiency Paroxysmal atrial fibrillation (CMS/HCC) Atrial fibrillation ICD (implantable cardioverter-defibrillator) in place Benign hypertensive heart disease with heart failure (CMS/HCC) Mixed hyperlipidemia Chronic systolic heart failure (CMS/HCC) Chronic systolic heart failure Acute HFrEF (heart failure with reduced ejection fraction) (CMS/HCC)- Primary Acute HFrEF (heart failure with reduced ejection fraction) (CMS/HCC) documented in this encounter Care Teams Melting Supervisor Relationship Specialty Start Date End Date Mere Gerber CNP [facility], [place] [address] PCP - General Family Medicine 01/10/24 documented as of this encounter
--- OUTSIDE RECORDS SUMMARY | 2024-12-07 08:34 | XMS_ITS | Encounter Summary ---
Author Organization The [facility] Address [address] [place] [address] Care Team Providers Care Textiles Sales Representative Name Role Phone Mere Gerber CNP Primary Care Provider [phone] Encounter Details Date Type Department Care Team (Late st Contact Info) Description 10/28/2024 Orders Only [facility] Cardiology Clinic [address] [place] [address] Jg Cason MD [address] [place] [address] Social History Tobacco Use Types Packs/Day Years Used Date Smoking Tobacco: Former Cigarettes Smokeless Tobacco: Never Alcohol Use Standard Drinks/Week Comments Not Currently 0 (1 standard drink = 0.6 oz pur e alcohol) [facility] Utilities Answer Date Recorded In the past 12 months has e [employer], gas, oil, or water [employer] threatened to shut off services in your [...] place to sleep or slept in a snf (including now)? No 02/26/2024 Hunger Vital Sign [...] Description 12/09/2024 3:30 PM EDT Office Visit [facility] Heart at [facility] [address] [place] [address] Phong Kelley MD [address] [place] [address] 12/19/2024 11:00 AM EDT Hospital Encounter [facility] Heart and Vascular Center Vascular Lab [address] [place] [address] Phong Kelley MD [address] [place] [address] Acute HFrEF (heart failure with reduced ejection fraction) ([facility]/HCC) 12/19/2024 11:00 AM EDT - 12/19/2024 12:00 PM EDT Surgery [facility] Heart and Vascular Center Vascular Lab [address] [place] [address] Phong Kelley MD [address] [facility] [place] [address] Right heart cath [[id number] (CPT )] 01/17/2025 11:00 AM EDT Follow-Up [facility] Urology [address] [place] [address] Tino Langston MD [address] [place] [address] documented as of this encounter Procedures Procedure Name Priority Date/Time Associated Diagnosis Comments CARDIAC DEVICE CHECK - REMOTE - ICD Routine 10/28/2024 12:00 AM EDT documented in this encounter Results * Cardiac device check - Remote ICD (10/28/2024 12:00 AM EDT) Anatomical Region Laterality Modality Other 10/28/2024 Jg Cason MD CV IMPLANTABLE CARDIAC DEVICE PROCEDURES Final Result documented in this encounter Visit Diagnoses Not on filedocumented in this encounter Care Teams Textiles Sales Representative Relationship Specialty Start Date End Date Mere Gerber CNP [address] [place] [address], [place] [address] PCP - General Family Medicine 01/10/24 documented as of this encounter
--- OUTSIDE RECORDS SUMMARY | 2024-12-07 08:34 | XMS_ITS ---
Author Organization [facility] Address [address] [place] [address] Care Team Providers Care Salesperson Recreational Vehicles Name Role Phone Mere Gerber CNP Primary Care Provider [phone] Transplant Episode Kidney Candidate [facility] ([place], [place]) - [facility] Referred on 05/23/2024 Marked as Deferred on 07/01/2024 Reason: Other - Specify in Note Kidney CoordinatorPaola Olivares MA Phone: N/A Fax: N/A Email: N/A Scores Score Value Updated Exceptions/Reas ons CPRA Not available EPTS (Calc) 81 12/07/2024 Care Team Name Role Phone Fax Email Paola Olivares MA Kidney Coordinator N/A N/A N/A Tino Langston MD Referring Physician [phone] N/A Events Pre-Transplant Referred: 05/23/2024
--- OUTSIDE RECORDS SUMMARY | 2024-12-07 08:34 | XMS_ITS | Encounter Summary ---
Author Organization [facility] Address [address] [facility] [place] [address] Care Team Providers Care Dry Food Products Mixer Name Role Phone Gloria Quintana MOTOR COACH DRIVER Unavailable [phone] Encounter Details Date Type Department Care Team (Late st Contact Info) Description 07/11/2024 Abstract [facility] [address] [place] [phone] Unallocated, Noms Provider, [address] [place] [address] Social History Tobacco Use Types Packs/Day Years [...] on filedocumented in this encounter Care Teams Dry Food Products Mixer Relationship Specialty Start Date End Date Gloria Quintana NP [address] [place], [place] [id number] PCP - Rigo MITCHELL 10/13/24 documented as of this encounter
--- OUTSIDE RECORDS SUMMARY | 2024-12-07 08:34 | XMS_ITS | Encounter Summary ---
Author Organization The [facility] Address [address] [place] [address] Care Team Providers Care Air Cargo Ground Operations Supervisor Name Role Phone Mere Gerber CNP Primary Care Provider [phone] Encounter Details Date Type Department Care Team (Late st Contact Info) Description 11/25/2024 Orders Only [facility] Heart and Vascular Center Cardiology Clinic [address] [place] [address] Jg Cason MD [address] [place] [address] Social History Tobacco Use Types Packs/Day Years Used Date Smoking Tobacco: Former Cigarettes Smokeless Tobacco: Never Alcohol Use Standard Drinks/Week Comments Not Currently 0 (1 standard drink = 0.6 oz pur e alcohol) [facility] Utilities Answer Date Recorded In the past 12 months has e [email or web address], gas, oil, or water [employer] threatened to shut off services in your [...] Description 12/09/2024 3:30 PM EDT Office Visit [facility] Heart at [facility] [address] [place] [address] Phong Kelley MD [address] [place] [address] 12/19/2024 11:00 AM EDT Hospital Encounter [facility] Heart and Vascular Center Vascular Lab [address] [place] [address] Phong Kelley MD [address] [place] [address] Acute HFrEF (heart failure with reduced ejection fraction) ([facility]/HCC) 12/19/2024 11:00 AM EDT - 12/19/2024 12:00 PM EDT Surgery [facility] Heart and Vascular Center Vascular Lab [address] [place] [address] Phong Kelley MD [address] [facility] [place] [address] Right heart cath [[id number] (CPT )] 01/17/2025 11:00 AM EDT Follow-Up [facility] Urology [address] [place] [address] Tino Langston MD [address] [facility] [address] [place] [address] documented as of this encounter Procedures Procedure Name Priority Date/Time Associated Diagnosis Comments CARDIAC DEVICE CHECK - REMOTE - ICD Routine 11/25/2024 12:00 AM EDT documented in this encounter Results * Cardiac device check - Remote ICD (11/25/2024 12:00 AM EDT) Anatomical Region Laterality Modality Other 11/25/2024 Jg Cason MD CV IMPLANTABLE CARDIAC DEVICE PROCEDURES Final Result documented in this encounter Visit Diagnoses Not on filedocumented in this encounter Care Teams Air Cargo Ground Operations Supervisor Relationship Specialty Start Date End Date Mere Gerber CNP [address] [place] [address], [place] [address] PCP - General Family Medicine 01/10/24 documented as of this encounter
--- OUTSIDE RECORDS SUMMARY | 2024-12-07 08:34 | XMS_ITS | Encounter Summary ---
Author Organization [facility] Address [address] [place] [address] Care Team Providers Care Art Coordinator Name Role Phone Mere Gerber CNP Primary Care Provider [phone] Encounter Details Date Type Department Care Team (Late st Contact Info) Description 11/26/2024 Orders Only [facility] Heart at [facility] [address] [place] [address] ProviderTeo MD [address] [place], [place] [id number] Social History Tobacco Use Types Packs/Day Years Used Date Smoking Tobacco: Former Cigarettes Smokeless Tobacco: Never Alcohol Use Standard Drinks/Week Comments Not Currently 0 (1 standard drink = 0.6 oz pur e alcohol) [facility] Utilities Answer Date Recorded In the past [...] place to sleep or slept in a halfway (including now)? No 02/26/2024 Hunger Vital Sign [...] Description 12/09/2024 3:30 PM EDT Office Visit [facility] Heart at [facility] [address] [place] [address] Phong Kelley MD [address] [place] [address] 12/19/2024 11:00 AM EDT Hospital Encounter [facility] Heart and Vascular Center Vascular Lab [address] [place] [address] Phong Kelley MD [address] [place] [address] Acute HFrEF (heart failure with reduced ejection fraction) ([facility]) 12/19/2024 11:00 AM EDT - 12/19/2024 12:00 PM EDT Surgery [facility] Heart and Vascular Center Vascular Lab [address] [place] [address] Phong Kelley MD [address] [place] [address] Right heart cath [[id number] (CPT )] 01/17/2025 11:00 AM EDT Follow-Up [facility] Urology [address] [place] [address] Tino Langston MD [address] [place] [address] documented as of this encounter Procedures Procedure Name Priority Date/Time Associated Diagnosis Comments PRO-BNP Routine 11/25/2024 8:38 AM EDT BASIC METABOLIC PANEL Routine 11/25/2024 8:38 AM EDT documented in this encounter Results * Pro-BNP (11/25/2024 8:38 AM EDT) Blood Venous blood specimen / Unknown Historical Provider LAB BLOOD ORDERABLES Lorri l Result * Basic metabolic panel (11/25/2024 8:38 AM EDT) Blood Venous blood specimen / Unknown us Historical Provider LAB BLOOD ORDERABLES Lorri l Result documented in this encounter Visit Diagnoses Not on filedocumented in this encounter Care Teams Art Coordinator Relationship Specialty Start Date End Date Mere Gerber CNP [address] [place] [address], [facility] [place] [address] PCP - General Family Medicine 01/10/24 documented as of this encounter
--- OUTSIDE RECORDS SUMMARY | 2024-12-07 08:34 | XMS_ITS | Clinical Summary ---
Author Organization [facility] Address [address] [place] [address] Care Team Providers Care In Home Sales Consultant Name Role Phone Gloria Quintana REVENUE INSPECTOR Unavailable [phone] Social History Tobacco Use Types Packs/Day [...] 2025 Insurance [employer] Care Teams In Home Sales Consultant Relationship Specialty Start Date End Date Gloria Quintana NP [address] [place] [address] [address] [place] [address] MYRIAM Sierra MA 10/13/24
--- OUTSIDE RECORDS SUMMARY | 2024-12-07 08:34 | XMS_ITS | Clinical Summary ---
Author Organization [facility] Address [address] [place] [address] Care Team Providers Care Scientific Laboratory Supervisor Name Role Phone Mere Gerber CNP Primary Care Provider [phone] Allergies No known active allergies Medications amiodarone (Pacerone) 200 mg tabletIndication s:Cardiac arrest (CMS/HCC) Take 1 tablet (200 mg) by mouth two times daily. 180 tablet 3 04/02/20 24 025 Active apixaban (Eliquis) 5 mg tabletIndication s:Cardiac arrest (CMS/HCC) Take 1 tablet (5 mg) by mouth two times daily. 60 tablet 11 04/02/20 24 Active Additional Information Patient not taking.Reason: Other, Reported on 11/29/2024 atorvastatin (Lipitor) 80 mg tabletIndication s:Coronary artery disease due to lipid rich plaque Take 1 tablet (80 mg) by mouth at bedtime. 90 tablet 3 04/02/20 24 Active clopidogrel (Plavix) 75 mg tabletIndication s:Coronary artery disease involving confederated goshute coronary artery of confederated goshute heart without angina pectoris TAKE 1 TABLET [...] 0.5 tabletoral 2 times daily, Reported on 11/29/2024 potassium chloride (Klor-Con) 20 mEq packetIndication s:Hypokalemia Take 40 mEq by mouth in the morning AND 20 mEq daily with evening meal. 270 packet 3 11/13/19 25 Active Additional Information Patient not taking.Reported on 11/29/2024 bumetanide (Bumex) 1 mg tabletIndication s:Acute HFrEF (heart failure with reduced ejection fraction) (CMS/HCC),Bilate ral lower extremity edema Take 1 tablet [...] a decrease 180 tablet 3 11/19/19 25 Active Additional Information Patient not taking.Reported on 11/29/2024 potassium chloride (Klor-Con) 20 mEq packetIndication s:Congestive heart failure, unspecified HF chronicity, unspecified heart failure type (CMS/HCC) Take 20 mEq by mouth two times daily. 180 packet 3 11/19/19 25 026 Active spironolactone (Aldactone) 25 mg tabletIndication s:Chronic systolic heart failure (CMS/HCC) Take 0.5 tablets (12.5 mg) by mouth once daily as directed. 45 tablet 3 04/02/20 24 025 Discontin ued(Reord er) furosemide (Lasix) 40 mg tabletIndication s:Cardiac arrest (CMS/HCC) Take 1 tablet (40 mg) by mouth if needed each day (leg swelling, shortness of breath, or weight gain). 90 tablet 3 04/30/20 24 025 Discontin ued(Reord er) furosemide (Lasix) 40 mg tabletIndication s:Cardiac arrest (CMS/HCC) Take 1 tablet (40 mg) by mouth two times daily. 90 tablet 3 11/13/19 25 025 Discontin ued(Ineff ective) Active Problems Problem Noted Date Diagnosed Date Acute HFrEF (heart failure with reduced ejection fraction) 11/29/2024 Loose stools 09/24/2024 Fall in home 06/29/2024 [...] Encounters Date Type Department Care Team Description 11/29/2024 3:20 PM EDT Office Visit [address] [address] Eren Johansen CNP Acute HFrEF (heart failure with reduced ejection fraction) (CMS/HCC) (Primary Dx); Acute kidney injury superimposed on CKD; Bilateral lower extremity edema; Chronic venous insufficiency; Paroxysmal atrial fibrillation (CMS/HCC); ICD (implantable cardioverter-defibrill ator) in place; Benign hypertensive heart disease with heart failure (CMS/HCC); Mixed hyperlipidemia; Chronic systolic heart failure (CMS/HCC) 11/26/2024 Orders Only [address] [address] Teo Estrada MD 11/25/2024 Orders Only [facility] [address] [place] [address] Jg Cason MD 11/18/2024 11:40 AM EDT Office Visit [address] [address] Eren Johansen CNP Acute HFrEF (heart failure with reduced ejection fraction) (CMS/HCC) (Primary Dx); Hypokalemia; Paroxysmal atrial fibrillation (CMS/HCC); Acute kidney injury superimposed on CKD; ICD (implantable cardioverter-defibrill ator) in place; Benign hypertensive heart disease with heart failure (CMS/HCC); Mixed hyperglyceridemia; Chronic venous insufficiency; Chronic systolic heart failure (CMS/HCC); Bilateral lower extremity edema 11/18/2024 Orders Only [address] [address] Kimmy Child MA Congestive heart failure, unspecified HF chronicity, unspecified heart failure type (CMS/HCC) (Primary Dx) 11/18/2024 Orders Only [address] [address] Kimmy Child MA Coronary artery disease due to lipid rich plaque (Primary Dx); SOB (shortness of breath) 11/12/2024 3:40 PM EDT Office Visit [facility] [address] [place] [facility] [place] [address] Eliana Hubbard CNP Acute on chronic systolic heart failure (CMS/HCC) (Primary Dx); Cardiac arrest (CMS/HCC); Hypokalemia; ICD (implantable cardioverter-defibrill ator) in place; Paroxysmal atrial fibrillation (CMS/HCC); Benign hypertensive heart disease with heart failure (CMS/HCC); Mixed hyperlipidemia; Hematuria, unspecified type; Atherosclerosis of confederated goshute coronary artery of confederated goshute heart without angina pectoris; Impairment of balance; Hypotension due to drugs; Venous insufficiency 11/12/2024 Orders Only [facility] [address] [place] [facility] [place] [address] Eliana Hubbard CNP 11/07/2024 Orders Only [facility] [address] [place] [facility] [place] [address] Kimmy Child MA half-way current use of amiodarone (Primary Dx) 10/30/2024 3:00 PM EDT Office Visit [facility] [address] [place] [facility] [place] [address] Eliana Hubbard CNP Acute on chronic systolic heart failure (CMS/HCC) (Primary Dx); Paroxysmal atrial fibrillation (CMS/HCC); ICD (implantable cardioverter-defibrill ator) in place; Benign hypertensive heart disease with heart failure (CMS/HCC); Mixed hyperlipidemia; Cardiac arrest (CMS/HCC); Coronary artery disease due to lipid rich plaque; Kidney stone; Hematuria, unspecified type; Impairment of balance 10/29/2024 8:35 AM EDT Ancillary Procedure [facility] Heart and [facility] Cardiology Clinic [address] [place] [phone] Pre-operative cardiovascular examination, ICD in place 10/28/2024 Orders Only [facility] Cardiology Clinic [address] [place] [address] Jg Cason MD 10/19/2024 Orders Only [facility] Cardiology Clinic [address] [place] [address] Jaxon Marquez MD 10/17/2024 2:45 PM EDT Follow-Up [facility] Urology [address] [place] [address] Tino Langston MD Kidney stone 09/27/2024 10:40 PM EDT Ancillary Procedure [facility] Cardiology Clinic [address] [place] [address] Pre-operative cardiovascular examination, ICD in place 09/27/2024 Orders Only [facility] Cardiology Clinic [address] [facility] [place] [address] Jg Cason MD from Last 3 Months Family History Medical [...] drink = 0.6 oz pur e alcohol) [facility] Utilities Answer Date Recorded In the past 12 months has [facility] [employer], oil, or water [employer] threatened to shut off services in your [...] Pulse 62 11/29/2024 3:04 PM EDT Temperature 36.3 C (97.3 F) 09/04/2024 11:25 AM EDT Respiratory Rate 24 09/04/2024 12:20 PM EDT Oxygen Saturation 94% 11/29/2024 3:04 PM EDT Inhaled Oxygen Concentration - - Weight 96.6 kg (213 lb) 11/29/2024 3:04 PM EDT Height 182.9 cm (6') 11/29/2024 3:04 PM EDT Body Mass Index 28.89 11/29/2024 3:04 PM EDT Plan of Treatment Upcoming Encounters Date Type Department Care Team (Late st Contact Info) Description 12/09/2024 3:30 PM EDT Office Visit [facility] [address] [place] [address] Phong Kelley MD [address] [place] [address] 12/19/2024 11:00 AM EDT Hospital Encounter [facility] [address] [facility] [place] [address] Phong Kelley MD [address] [place] [address] Acute HFrEF (heart failure with reduced ejection fraction) ([facility]) 12/19/2024 11:00 AM EDT - 12/19/2024 12:00 PM EDT Surgery [facility] [address] [facility] [place] [address] Phong Kelley MD [address] [place] [address] Right heart cath [70340 (CPT )] 01/17/2025 11:00 AM EDT Follow-Up [facility] Urology [address] [address] Tino Langston MD [address] [facility] [address] [place] [address] Health Maintenance Due Date Last Done Comments Medicare Annual Wellness (AWV) 1945 Pneumococcal Vaccine: 50+ Ye ars (1 of 2 - PCV) 1964 Adult Tetanus 08/19/1967 Zoster Vaccines (1 of 2) 08/19/1995 COVID-19 Vaccine (2023-2 5 season) 2024 Influenza Vaccine (#1) 2025 [...] this topic Medical Devices Implanted Type Area Content Creation Manager Device Identifier Shelf Expiration Date Model / Serial / Lot Jared Ruvalcaba El,Df4-Dr - [id number] - [id number] Implanted:Qty: 1 on 03/04/2024 by Jaxon Marquez MD at [facility] ICD Cue [id number] 12/18/2025 [id number] / [id number] / Demorest 4-Front S Active Fix Single Coil 64cm Implanted:Qty: 1 on 03/04/2024 by Jaxon Marquez MD at [facility] Lead Cue [id number] 01/27/2026 [id number] / [id number] / Ingevity+ Is-1 Bi Positive Fix Ra/Rv 52cm Implanted:Qty: 1 on 03/04/2024 by Jaxon Marquez MD at [facility] Lead Cue [id number] 01/01/2026 7841 / [id number] / Stent,Ureteral ,Soft,Tria,6x2 6 - [id number] Implanted:Qty: 1 on 09/04/2024 by Qasim Hernandez MD at [facility] Stent Left: Ureter [employer] [id number] 04/16/2027 [id number] / / [id number] Explanted Type Area Content Creation Manager Device Identifier Shelf Expiration Date Model / Serial / Lot Stent,Ureteral Kit,[id number] - [id number] Implanted:Qty: 1 on 05/21/2024 by Tino Langston MD at [facility] Explanted:Qty: 1 on 06/19/2024 by Tino Langston MD at [facility] Stent Left: Kidney [employer] [id number] 10/31/2026 [id number] / [id number] Stent,Ureteral Kit,[id number] - [id number] Implanted:Qty: 1 on 06/19/2024 by Tino Langston MD at [facility] Explanted:Qty: 1 on 09/04/2024 by Qasim Hernandez MD at [facility] Stent Left: Kidney [employer] [id number] 01/02/2027 [id number] Procedures Procedure Name Priority Date/Time Associated Diagnosis Comments CARDIAC DEVICE CHECK CHECK - REMOTE Routine 11/25/2024 4:45 PM EDT Pre-operative cardiovascular examination, ICD in place PRO-BNP Routine 11/25/2024 8:38 AM EDT BASIC METABOLIC PANEL Routine 11/25/2024 8:38 AM EDT CARDIAC DEVICE CHECK - REMOTE - ICD Routine 11/25/2024 12:00 AM EDT B-TYPE NATRIURETIC PEPTIDE Routine 11/11/2024 2:19 PM EDT BASIC METABOLIC PANEL Routine 11/11/2024 2:19 PM EDT CARDIAC DEVICE CHECK - REMOTE - ICD Routine 10/28/2024 12:00 AM EDT CARDIAC DEVICE CHECK - REMOTE - ICD Routine 10/19/2024 12:00 AM EDT CARDIAC DEVICE CHECK CHECK - REMOTE Routine 10/08/2024 12:23 PM EDT Pre-operative cardiovascular examination, ICD in place CARDIAC DEVICE CHECK - REMOTE - ICD Routine 09/27/2024 12:00 AM EDT from Last 3 Months Results * CARDIAC DEVICE CHECK - REMOTE - ICD (11/25/2024 4:45 PM EDT) Only the most recent of2 resultswithin the time period is included. BSA 2.27 m2 CPACS us Jaxon Marquez MD CV IMPLANTABLE CARDIAC DEVICE ND OCEDURES Final Result CPACS * Pro-BNP (11/25/2024 8:38 AM EDT) Blood Venous blood specimen / Unknown Historical Provider LAB BLOOD ORDERABLES Lorri l Result * Basic metabolic panel (11/25/2024 8:38 AM EDT) Only the most recent of2 resultswithin the time period is included. Blood Venous blood specimen / Unknown Historical Provider MD LAB BLOOD ORDERABLES Lorri l Result * Cardiac device check - Remote ICD (11/25/2024 12:00 AM EDT) Only the most recent of4 resultswithin the time period is included. Anatomical Region Laterality Modality Other 11/25/2024 Result [facility] Jg Cason MD CV IMPLANTABLE CARDIAC DEVICE PROCEDURES Final Result * B-type natriuretic peptide (11/11/2024 2:19 PM EDT) Blood Venous blood specimen / Unknown Result [facility] Eliana Hubbard CNP LAB BLOOD ORDERABLES Final Re sult from Last 3 Months Insurance [employer] Advance Directives * Full Code (Latest Code Status on File) Date Activated Date Inactivated Comments 02/26/2024 1:07 PM 03/06/2024 7:44 PM Care Teams Scientific Laboratory Supervisor Relationship Specialty Start Date End Date Mere Gerber CNP [address] [place] [address], [place] [address] PCP - General Family Medicine 01/10/24
--- OUTSIDE RECORDS SUMMARY | 2024-12-07 08:35 | XMS_ITS | Encounter Summary ---
Author Organization [facility] Address [address] [place] [address] Care Team Providers Care Patient Registration Specialist Name Role Phone Gloria Quintana AIRCRAFT MAINTENANCE INSTRUCTOR Unavailable [phone] Encounter Details Date Type Department Care Team (Late st Contact Info) Description 07/18/2024 Abstract [facility] [address] [place] [phone] Unallocated, Noms Provider, [address] [place] [address] Social History Tobacco Use Types Packs/Day Years [...] on filedocumented in this encounter Care Teams Patient Registration Specialist Relationship Specialty Start Date End Date Gloria Quintana NP [address] [place], [place] [id number] PCP - Rigo MITCHELL 10/13/24 documented as of this encounter
--- OUTSIDE RECORDS SUMMARY | 2024-12-07 08:35 | XMS_ITS | Patient Health Record ---
Author Organization [facility] [place] Address [address] [place] [address] Care Team Providers Care Summer Law Associate Name Role Phone Mere Gerber Primary Care Provider [phone] Kourtney Layton Unavailable [phone] Allergies No Known Allergies Results Component Value Reference Range Notes CBC AUTO DIFF Reviewed date:04/03/2024 08:35:47 PM Interpretation: Performing Lab: Notes/Report: [facility] , White Blood Count 5.6 4.0-11.0 10 [...] 3/uL Performing Lab: see note ML - [facility] PROF 14(COMP METB) Reviewed date:04/03/2024 08:35:47 PM Interpretation: Performing Lab: Notes/Report: [facility] , Sodium 145 136-145 mmol/L Potassium 3.5 [...] 0.7 Performing Lab: see note ML - [facility] PTT Reviewed date:05/13/2024 08:38:16 PM Interpretation: Performing Lab: Notes/Report: [facility] , Partial Thromboplastin Time 30.5 22.3-36.2 sec Performing Lab: see note ML - [facility] Prothrombin Time INR Reviewed date:05/13/2024 08:38:16 PM Interpretation: Performing Lab: Notes/Report: [facility] , Prothrombin Time 12.4 9.0-11.6 sec INR 1.19 DESIRED INR: 2.0-3.0 CONDITIONS NOT LISTED BELOW 2.5-3.5 FOR PROSTHETIC HEART VALVE REPLACEMENT 2.5-3.5 RECURRENT THROMBOSIS Performing Lab: see note ML - [facility] LB ITP Reviewed date:05/15/2024 03:40:58 PM Interpretation: Performing Lab: Notes/Report: Source Facility: [place] [address] [place] [address] Cardiac Rehab Report Signed Patient: JUSTUS LOYOLA MR#: [id number] : 1945 Acct:[id number] Age/Sex: 78 / M ADM Date: 05/13/24 Loc: CR Attending Dr: MERE GERBER Ordering Physician: Rey Antoine D.O. Date of Service: 05/13/24 Procedure(s): ITP Accession Number(s): [id number] cc: [facility] Test Date: 2024-05-13 Pat Name: JUSTUS LOYOLA Department: Room: - Gender: Male Healthcare Administrative Assistant: : 1945 Requested By: REY ANTOINE Order Number: [id number] Tera MD: REY ANTOINE Interpretive Statements Session Date: Electronically Signed On 05-15-2024 8:06:17 EST by REY ANTOINE Dictated By: Rey Antoine D.O. Signed By: 05/15/24 0805/15/24 08 DD/ 1527 TD/TT: Stone Lathe Operator: [place] [address] Cardiac Rehab Report Signed Patient: AI LOYOLA RD MR#: [id number] : 1945 Acct:[id number] Age/Sex: 78 / M ADM Date: 05/13/24 Loc: CR Attending Dr: MERE GERBER Ordering Physician: Rey Antoine D.O. Date of Service: 05/13/24 Procedure(s): ITP Accession Number(s): [id number] cc: [facility] Test Date: 2024-05-13 Pat Name: JUSTUS CORRAL Department: 22 Room: - Gender: Male Healthcare Administrative Assistant: : 1945 Requested By: REY ANTOINE Order Number: [id number] Reading MD: REY ANTOINE Interpretive Statements Session Date: Electronically Ioana d On 05-15-2024 8:06:17 EST by REY ANTOINE Dictated By: Rey Antoine D.O. Signed By: 05/15/2480505/15/24805 DD/ 1527 TD/TT: Stone Lathe Operator: Box Test Reviewed date:05/19/2024 08:32:40 PM Interpretation: Performing Lab: Notes/Report: URINE CULTURE [facility] , BOX Test Sent Out URINE CULTURE BOX Test Reference Lab [facility] BOX Test Date Sent 05/14/24 BOX Test Result SEE SCANNED REPORT Performing Lab: see note ML - [facility] PROF 14(COMP METB) Reviewed date:06/17/2024 09:02:32 PM Interpretation: Performing Lab: Notes/Report: [facility] , Sodium 141 136-145 mmol/L Potassium 3.4 [...] 0.8 Performing Lab: see note ML - [facility] LB PTT Reviewed date:06/17/2024 09:02:32 PM Interpretation: Performing Lab: Notes/Report: [facility] , Partial Thromboplastin Time 29.1 22.3-36.2 sec Performing Lab: see note ML - [facility] LB Prothrombin Time INR Reviewed date:06/17/2024 09:02:32 PM Interpretation: Performing Lab: Notes/Report: [facility] , Prothrombin Time 12.1 9.0-11.6 sec INR 1.16 DESIRED INR: 2.0-3.0 CONDITIONS NOT LISTED BELOW 2.5-3.5 FOR PROSTHETIC HEART VALVE REPLACEMENT 2.5-3.5 RECURRENT THROMBOSIS Performing Lab: see note ML - [facility] LB CBC AUTO DIFF Reviewed date:08/28/2024 08:07:13 PM Interpretation: Performing Lab: Notes/Report: [facility] , White Blood Count 6.5 4.0-11.0 10 [...] 3/uL Performing Lab: see note ML - [facility] LB FREE T4 Reviewed date:08/28/2024 08:07:13 PM Interpretation: Performing Lab: Notes/Report: [facility] , Free T4 1.46 0.76-1.46 ng/dL Performing Lab: see note ML - [facility] LB PROF 14(COMP METB) Reviewed date:08/28/2024 08:07:13 PM Interpretation: Performing Lab: Notes/Report: [facility] , Sodium 145 136-145 mmol/L Potassium 3.7 [...] 0.7 Performing Lab: see note ML - [facility] LB PTT Reviewed date:08/28/2024 08:07:13 PM Interpretation: Performing Lab: Notes/Report: [facility] , Partial Thromboplastin Time 24.4 22.3-36.2 sec Performing Lab: see note ML - [facility] LB TSH Reviewed date:08/28/2024 08:07:13 PM Interpretation: Performing Lab: Notes/Report: [facility] , Thyroid Stimulating Hormone 2.655 0.358-3.740 uIU/mL Performing Lab: see note ML - [facility] LB Prothrombin Time INR Reviewed date:08/28/2024 08:07:13 PM Interpretation: Performing Lab: Notes/Report: [facility] , Prothrombin Time 11.8 9.0-11.6 sec INR 1.13 DESIRED INR: 2.0-3.0 CONDITIONS NOT LISTED BELOW 2.5-3.5 FOR PROSTHETIC HEART VALVE REPLACEMENT 2.5-3.5 RECURRENT THROMBOSIS Performing Lab: see note ML - [facility] LB Urine Culture - [facility] Reviewed date:09/02/2024 08:08:46 PM Interpretation: Performing Lab: Notes/Report: [facility] , Urine Culture - [facility] See Below For Report Urine Culture - [facility] <9,000 colonies/ml mixed Urine Culture - [facility] bacterial skin contaminants Urine Culture - [facility] <9,000 colonies/ml mixed Urine Culture - [facility] 2 Days Urine Culture - [facility] <9,000 colonies/ml mixed Urine Culture - [facility] Urine Culture - [facility] <9,000 colonies/ml mixed Urine Culture - [facility] Testing performed a [facility] Urine Culture - [facility] <9,000 colonies/ml mixed Urine Culture - [facility] [address] [place] [address] Urine Culture - [facility] <9,000 colonies/ml mixed Performing Lab: see note ML - [facility] LB XR chest 2V Reviewed date:11/18/2024 12:51:13 PM Interpretation: Performing Lab: Notes/Report: Source Facility: [place] [address] XRay Report Signed Patient: JUSTUS LOYOLA MR#: [id number] : 1945 Acct:[id number] Age/Sex: 79 / M ADM Date: 11/18/24 Loc: LAB Attending Dr: RANDOLPH PROCTOR APRN Ordering Physician: RANDOLPH PROCTOR APRN Date of Service: 11/18/24 Procedure(s): XR chest 2V Accession Number(s): [id number] cc: Kashmir Oconnell M.D.; RANDOLPH PROCTOR APRN [place] [id number] Patient Name: JUSTUS LOYOLA MRN: [id number] date: 1945 Sex: M Assigned Patient Location: LAB Current Patient Location: LAB Accession/Order Number: [id number] Exam Date: 11/18/2024 10:51 Report Date: 11/18/2024 10:56 At the request of: RANDOLPH PROCTOR APRN Procedure: XR chest 2V PA AND LATERAL CHEST: 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 11/18/2024 10:56 AM Dictation Location: [place] [address] Electronically authenticated by: [id number] Y Date: 11/18/2024 10:56 Dictated By: Katy Galeana M.D. Signed By: 11/18/24 1058 DD/ 1056 TD/TT: Stone Lathe Operator: [place] [address] XRay Report Signed Patient: AI LOYOLA RD MR#: [id number] : 1945 Acct:[id number] Age/Sex: 79 / M ADM Date: 11/18/24 Loc: LAB Attending Dr: NAYA PROCTOR APRN Ordering Physician: RANDOLPH PROCTOR APRN Date of Service: 11/18/24 Procedure(s): XR zbigniew st 2V Accession Number(s): [id number] cc: Kashmir Oconnell M.D. ; RANDOLPH PROCTOR APRN [place] [id number] Patient Name: JUSTUS LOYOLA MRN: [id number] date: 1945 Sex: M Assigned Patient Location: LAB Current Patient Location: LAB Accession/Order Numb er: [id number] Exam Date: 11/18/2024 10:51 Report Date: 11/18/2024 [...] Galeana M.D. 11/18/2024 10:56 AM Dictation Location: [place] [address] Electronically authenticated by: [id number] Y Date: 11/18/2024 10:56 Dictated By: Katy Galeana M.D. Signed By: 11/18/24 1058 DD/ 1056 TD/TT: Stone Lathe Operator: BNP Reviewed date:11/25/2024 06:09:50 PM Interpretation: Performing Lab: Notes/Report: [facility] , NT Pro B Type Natriuretic Pept 268.0 <=1800.0 pg/mL Performing Lab: see note ML - [facility] LB PROF CHEM 8 (BAS METB) Reviewed date:11/25/2024 06:09:50 PM Interpretation: Performing Lab: Notes/Report: [facility] , Sodium 140 136-145 mmol/L Potassium 4.8 3.5-5.1 mmol/L Chloride 104 98-107 mmol/L Carbon Dioxide 27.4 21.0-32.0 mmol/L Anion Gap 13.4 Glucose 100 74-106 mg/dL Blood Urea Nitrogen 35.0 7.0-18.0 mg/dL Creatinine 3.14 0.70-1.30 mg/dL Estimated GFR ( [place] 23 >=60 mL/min/1.73m 2 Estimated GFR (Non- [place] 19 >=60 mL/min/1.73m 2 BUN Creatinine Ratio 11.1 Calcium 9.3 8.5-10.1 mg/dL Performing Lab: see note ML - [facility] LB PROF CHEM 8 (BAS METB) Reviewed date:11/11/2024 09:21:35 PM Interpretation: Performing Lab: Notes/Report: [facility] , Sodium 144 136-145 mmol/L Potassium 2.6 3.5-5.1 mmol/L RESULTS SANDOVAL D TO DR. GREGORY FROM [place] Chloride 104 98-107 mmol/L Carbon Dioxide 33.0 21.0-32.0 mmol/L Anion Gap 9.6 Glucose 94 74-106 mg/dL Blood Urea Nitrogen 24.0 7.0-18.0 mg/dL Creatinine 1.89 0.70-1.30 mg/dL Estimated GFR ( Katie 42 >=60 mL/min/1.73m 2 Estimated GFR (Non- [place] 35 >=60 mL/min/1.73m 2 BUN Creatinine Ratio 12.7 Calcium 9.3 8.5-10.1 mg/dL Performing Lab: see note ML - [facility] LB BNP Reviewed date:11/11/2024 09:21:35 PM Interpretation: Performing Lab: Notes/Report: [facility] , NT Pro B Type Natriuretic Pept 360.0 <=1800.0 pg/mL Performing Lab: see note ML - [facility] LB CBC AUTO DIFF Reviewed date:06/17/2024 09:02:32 PM Interpretation: Performing Lab: Notes/Report: [facility] , White Blood Count 5.1 4.0-11.0 10 [...] 3/uL Performing Lab: see note ML - [facility] LB PROF 14(COMP METB) Reviewed date:05/13/2024 08:38:16 PM Interpretation: Performing Lab: Notes/Report: [facility] , Sodium 146 136-145 mmol/L Potassium 3.6 [...] 0.8 Performing Lab: see note ML - [facility] LB CBC AUTO DIFF Reviewed date:05/13/2024 08:38:16 PM Interpretation: Performing Lab: Notes/Report: [facility] , White Blood Count 6.6 4.0-11.0 10 [...] 10 3/uL Performing Lab: see note - [facility] LB Prothrombin Time INR Reviewed date:04/03/2024 08:35:47 PM Interpretation: Performing Lab: Notes/Report: [facility] , Prothrombin Time 11.9 9.0-11.6 sec INR 1.14 DESIRED INR: 2.0-3.0 CONDITIONS NOT LISTED BELOW 2.5-3.5 FOR PROSTHETIC HEART VALVE REPLACEMENT 2.5-3.5 RECURRENT THROMBOSIS Performing Lab: see note [facility] LB PTT Reviewed date:04/03/2024 08:35:47 PM Interpretation: Performing Lab: Notes/Report: [facility] , Partial Thromboplastin Time 29.2 22.3-36.2 sec Performing Lab: see note ML - [facility] LB COVID-19, Flu A+B IH Reviewed date:04/03/2024 08:35:47 PM Interpretation: Performing Lab: Notes/Report: COVID - FLU A - FLU B - Control + PROF CHEM 8 (BAS METB) Reviewed date:11/18/2024 12:51:13 PM Interpretation: Performing Lab: Notes/Report: [facility] , Sodium 148 136-145 mmol/L Potassium 4.7 [...] mg/dL Performing Lab: see note ML - [facility] LB MAGNESIUM Reviewed date:11/18/2024 12:51:13 PM Interpretation: Performing Lab: Notes/Report: [facility] , Magnesium 2.2 1.8-2.4 mg/dL Performing Lab: see note ML - [facility] LB ITP Reviewed date:07/03/2024 07:44:10 PM Interpretation: Performing Lab: Notes/Report: Source Facility: [facility] [place] [address] [place] [address] Cardiac Rehab Report Signed Patient: JUSTUS LOYOLA MR#: [id number] : 1945 Acct:[id number] Age/Sex: 78 / M ADM Date: 05/16/24 Loc: CR Attending Dr: MERE GERBER Ordering Physician: Rey Antoine D.O. Date of Service: 07/02/24 Procedure(s): ITP Accession Number(s): [id number] cc: [facility] Test Date: 2024-07-02 Pat Name: JUSTUS LOYOLA Department: Room: - Gender: Male Healthcare Administrative Assistant: : 1945 Requested By: REY ANTOINE Order Number: [id number] Tera MD: REY ANTOINE Interpretive Statements Session Date: Electronically Signed On 07-03-2024 7:14:14 EST by REY ANTOINE Dictated By: Rey Antoine D.O. Signed By: 07/03/2471307/03/24713 DD/ 5 TD/TT: Stone Lathe Operator: [place] [address] Cardiac Rehab Report Signed Patient: AI LOYOLA RD MR#: [id number] : 1945 Acct:[id number] Age/Sex: 78 / M ADM Date: 05/16/24 Loc: CR Attending Dr: MERE GERBER Ordering Physician: Rey Antoine D.O. Date of Service: 07/02/24 Procedure(s): ITP Accession Number(s): [id number] cc: [facility] Test Date: 2024-07-02 Pat Name: JUSTUS [place] Department: 22 Room: - Gender: Male Healthcare Administrative Assistant: : 1945 Requested By: REY ANTOINE Order Number: [id number] Tera MD: REY ANTOINE Interpretive Statements Session Date: Electronically Ioana d On 07-03-2024 7:14:14 EST by REY ANTOINE Dictated By: Rey Antoine D.O. Signed By: 07/03/2471307/03/24713 DD/ 5 TD/TT: Stone Lathe Operator: Reason For Referral No Information Medications Medication SIG (Take, Route, Frequency, Duration) Notes Start Date End Date Status Albuterol Sulfate (2.5 MG/3ML) 0.083% 3 mL as needed Inhalation every 6 hrs 04/03/2024 Active Bumetanide 1 MG 1 tablet Orally twic e daily for 30 days 11/27/2024 Active Vitamin D (Ergocalciferol) 1.25 MG (65454 UT) 1 capsule Orally daily Active Walker with Wheels -- Use walker daily t o safely complete ADLs- DX I21.6 and M62.81 for 365 days 01/05/2024 Active Atorvastatin Calcium 80 MG 1 tablet Oral ly Once a day Active Amiodarone HCl 200 MG 1 tablet Orally tw ice daily 04/03/2024 Active Spironolactone 25 MG 1 tablet Orally onc e daily 04/03/2024 Active Carvedilol 3.125 MG TAKE 1 TABLET BY VERNA TH TWICE A DAY Oral for 30 Days Active Memantine HCl ER 21 MG TAKE 1 CAPSULE BY MOUTH EVERY DAY FOR 30 DAYS for 90 days Active Farxiga 10 MG 1 tablet Orally [...] Problem Status W/U Status Risk Notes Problem 226059441 Paroxysmal atria l fibrillation (I48.0) Active confirmed Problem 010095512 Acute on chronic systolic (congestive) heart failure (I50.23) Active confirmed Problem 18149226 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 Problem Hypertension (I10) Active confirmed Problem Hypertension (94458803) HTN (hypertension) (I10) Active confirmed Problem Dementia (05631957) Dementia (F03.90) Active co nfirmed Problem 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) Active confirmed Problem hypercholesterolemia (disorder) (40477359) Hypercholesteremia (E78.00) Active confirmed Problem Myocardial infarctio n (77185892) Myocardial infarction (I21.9) Active confirmed Vital Signs Temperature 97.7 degrees Fahrenheit 02/23/2024 Blood pressure diastolic 56 mm Hg 08/20/2024 Height 72 in 08/20/2024 Blood pressure systolic 98 mm Hg 08/20/2024 Weight 202.0 lbs 08/20/2024 BMI 27.39 kg/m2 08/20/2024 Encounters Encounter Location Date Provider Diagnosis [facility] [address] [facility] [place] [address] 01/01/2024 Mere Gerber [facility] [address] [facility] [place] [address] 01/04/2024 Mere Gerber [facility] [address] [facility] [place] [address] 01/05/2024 Mere Gerber [facility] [address] [facility] [place] [address] 02/23/2024 Mere Gerber HTN (hypertension) I 10 [facility] [address] [facility] [place] [address] 04/03/2024 Layton Cuadray [facility] [address] [place] [facility] [place] [address] 04/30/2024 Layton Oconnell Acute on chronic sys tolic (congestive) heart failure I50.23 [facility] [address] [facility] [place] [address] 05/16/2024 Mere Gerber [facility] [address] [facility] [place] [address] 07/01/2024 Mere Gerber [facility] [address] [facility] [place] [address] 11/25/2024 Mere Gerber Edema R60.9 [facility] [address] [facility] [place] [address] 02/23/2024 Mere Gerber Cough R05.9 and Francis a R60.9 [facility] [address] [facility] [place] [address] 01/01/2024 Mere Gerber Generalized weakness R53.1 [facility] [address] [facility] [address] 04/03/2024 Layton Oconnell Hypertension I10 ; Hypercholesteremia E78.00 ; Myocardial infarction I21.9 ; HTN (hypertension) I10 ; Acute on chronic systolic (congestive) heart failure I50.23 and Dementia F03.90 [facility] [address] [place] [address] 08/20/2024 Mere Gerber HTN (hypertension) I 10 Assessments Encounter Date Diagnosis (ICD Code) Assessment Notes Treatment Notes Treatment Clinical Notes Section Notes 01/01/2024 Generalized weakness (ICD-10 - R53.1) Wheeled walker and wheelchair [employer] patient needs wheeled walker, cane not helpful [...] systolic (congestive) heart failure (ICD-10 - I50.23) 11/25/2024 Edema (ICD-10 - R60.9) 04/03/2024 Myocardial infarctio n (ICD-10 - I21.9) [...] Insured Coverage Start Date Coverage End Date [employer]V PRIMARY MEDICARE [address] [place] [address] [id number] Justus Loyola Self - patient is the insured Medical (General) History Medical History History ICD Code Myocardial infarction I21.9 Hypertension I10 Hypercholesteremia E78.00 Surgical History Surgery Date(Month/Year) Defibrillator placement Cardiac Stent Placement Lithotripsy x2 2024 Hospitalization History Reason Date(Month/Year) See Above
--- OUTSIDE RECORDS SUMMARY | 2024-12-07 08:35 | XMS_ITS | Encounter Summary ---
Author Organization [facility] Address [address] [place] [address] Care Team Providers Care Equine Dentist Name Role Phone Mere Gerber CNP Primary Care Provider [phone] Encounter Details Date Type Department Care Team (Late st Contact Info) Description 08/31/2024 Orders Only [facility] Cardiology Clinic [address] [place] [address] Jg Cason MD [address] [place] [address] Social History Tobacco Use Types Packs/Day Years Used Date Smoking Tobacco: Former Cigarettes Smokeless Tobacco: Never Alcohol Use Standard Drinks/Week Comments Not Currently 0 (1 standard drink = 0.6 oz pur e alcohol) [facility] Utilities Answer Date Recorded In the past 12 months has e [employer], gas, oil, or water [employer] threatened to shut off services in your [...] Description 12/09/2024 3:30 PM EDT Office Visit [facility] [address] [place] [address] Phong Kelley MD [address] [facility] [address] 12/19/2024 11:00 AM EDT Hospital Encounter [facility] Heart and Vascular Center Vascular Lab [address] [place] [address] Phong Kelley MD [address] [facility] [address] Acute HFrEF (heart failure with reduced ejection fraction) ([facility]/H[facility]) 12/19/2024 11:00 AM EDT - 12/19/2024 12:00 PM EDT Surgery [facility] Vascular Lab [address] [place] [address] Phong Kelley MD [address] [facility] [place] [address] Right heart cath [01629 (CPT )] 01/17/2025 11:00 AM EDT Follow-Up [facility] Urology [address] [place] [address] Tino Langston MD [address] [address] [place] [address] documented as of this encounter [...] on filedocumented in this encounter Care Teams Equine Dentist Relationship Specialty Start Date End Date Mere Gerber CNP [address] [place] [address], [facility] [place] [address] PCP - General Family Medicine 01/10/24 documented as of this encounter
--- OUTSIDE RECORDS SUMMARY | 2024-12-07 08:35 | XMS_ITS | Clinical Summary ---
Author Organization [employer] Address [id number] [address] [place] [address] Care Team Providers Care Lift Operator Name Role Phone Mere Gerber HEADER MACHINE OPERATOR-PRODUCT TESTER [employer] Primary Care Provider Allergies No known active [...] drink = 0.6 oz pur e alcohol) [facility] Utilities Answer Date Recorded In the past 12 months has e [employer], gas, oil, or water [employer] threatened to shut off services in your [...] law Medical Devices Not on file Insurance [facility] MEDICARE Advance Directives * Full Code (Latest Code Status on File) Date Activated Date Inactivated Comments 06/29/2024 2:29 AM 07/04/2024 7:36 PM Care Teams Lift Operator Relationship Specialty Start Date End Date Mere Gerber, HEADER MACHINE OPERATOR-PRODUCT TESTER [employer] [address] [facility] [place] [address] PCP - General Family Medicine 02/22/24
--- OUTSIDE RECORDS SUMMARY | 2024-12-07 08:40 | XMS_ITS | CCD ---
Author Organization [facility] Care Team Providers Care Shrimp Trawler Captain Name Role Phone JAD MITCHELL Primary Care Physician [phone] Nova Wang Attending Unavailable TABITHA LEUNG Attending Unavailable Nova Wang Referring Unavailable Nova Wang Attending Unavailable Nova Wang Attending Unavailable Nova Wang Referring Unavailable Nova Wang Attending Unavailable Kelvin Langston MD Attending Provider Radha BENDING MACHINE OPERATOR-LIONEL, Miguel S Primary Care Provider RADHA, MIGUEL S Primary Care Unavailable ALFRED VALENZUELA Consulting Unavailable RU SCHWARZ Admitting Unavailable RU SCHWARZ Attending Unavailable WILBERTO LOOMIS Consulting Unavailable RADHA, MIGUEL S Referring Unavailable RADHA, MIGUEL S Primary Care Unavailable RADHA, MIGUEL S Referring Unavailable RADHA, MIGUEL S Primary Care Unavailable RADHA, MIGUEL S Referring Unavailable RADHA, MIGUEL S Primary Care Unavailable EKWENNA, KELVIN O Referring Unavailable RADHA, MIGUEL S Primary Care Unavailable RADHA, MIGUEL S Primary Care Unavailable EDER STRONG Attending Unavailable RADHA, MIGUEL S Primary Care Unavailable DARLIN CUELLO Attending Unavailoumar e RADHA, MIGUEL S Primary Care Unavailable EDER STRONG Attending Unavailable RANDOLPH PROCTOR Referring Unavailable RADHA, MIGUEL S Primary Care Unavailable Ekwenna, Kelvin O Admitting Unavailable Ekwejosea, Kelvin O Attending Unavailable Ivis Kelvin O Attending Unavailable Ekjo ann, Kelvin O Admitting Unavailable Kelvin Langston MD Attending Provider EKWENNA, OBI Attending Unavailable EKWENNA, OBI Admitting Unavailable EKWENNA, OBI Attending Unavailable EKWENNA, OBI Admitting Unavailable RYLIESAILAJA SALINAS Attending Unavailable PRADEEP, ABE Admitting Unavailable EKWENNA, OBI Attending Unavailable EKWENNA, OBI Admitting Unavailable CORY, JAXON Referring Unavailable CORY, JAXON Referring Unavailable CORY, JAXON Referring Unavailable EKWENNA, OBI Attending Unavailable HERCHER, XANDER Referring Unavailable EKWENNA, OBI Attending Unavailable EKWENNA, OBI Referring Unavailable RADIOLOGY, RADIOLOGIST Attending Unavailab le EKWENNA, OBI Referring Unavailable EKWENNA, OBI Referring Unavailable EKWENNA, OBI Referring Unavailable EKWENNA, OBI Referring Unavailable EKWENNA, OBI Referring Unavailable PRADEEP, ABE Referring Unavailable PRADEEP, ABE Referring Unavailable CORY, JAXON Referring Unavailable HERCHER, XANDER Referring Unavailable CORY, JAXON Referring Unavailable CORY, JAXON Referring Unavailable CORY, JAXON Referring Unavailable PRADEEP, ABE Referring Unavailable PRADEEP, ABE Referring Unavailable PRADEEP, ABE Referring Unavailable EVELYN, ALTAGRACIA Attending Unavailable PRADEEP, ABE Referring Unavailable CORY, JAXON Referring Unavailable HERCHER, XANDER Referring Unavailable PRADEEP, ABE Referring Unavailable DAVIS, MELISSA Referring Unavailable RANDOLPH PROCTOR Attending Unavailable EVELYN, ALTAGRACIA Attending Unavailable RANDOLPH PROCTOR Attending Unavailable ESTHELARANDOLPH KNUTSON Attending Unavailable CORYJAXON Referring Unavailable ESTHELARANDOLPH LEAL Attending Unavailable RANDOLPH PROCTOR Attending Unavailable LEONID RAMIREZ Attending Unavailable EKWENNA, OBI Referring Unavailable EVELYNALTAGRACIA Attending Unavailable EKWENNA, OBI Attending Unavailable PRADEEP, ABE Referring Unavailable CORY JAXON Referring Unavailable EKWENNA, OBI Attending Unavailable PRADEEP, ABE Referring Unavailable HERCHER, XANDER Attending Unavailable Medications Current Medications Medication Drug Class(es) Dates Sig (Normalized) Sig (Original) acetaminophen 500 mg oral tablet (5 sources) Start: 07-04-2024 take 2 tablets by mouth every six hours as needed for pain acetaminophen (TYLENOL EXTRA STRENGTH) 500 mg tablet Take 2 tablets (1,000 mg total) by mouth every 6 (six) hours as needed for pain. 07/04/2024 Active Start: 07-02-2024 End: 07-04-2024 take 1 tablet by mouth every six hours as needed for pain and headache and fever and pain 1,000 mg, oral, Every 6 hours PRN, mild pain - pain scale 1-3, headaches, temperature greater than 38 C, moderate pain - pain scale 4-6, Starting on Mon07/02/24 at 1008 Start: 06-29-2024 End: 06-29-2024 take 1000 mg intravenously every six hours 1,000 mg, intravenous, at 400 mL/hr, Administer over 15 Minutes, Every 6 hours, First dose on Mon06/29/24 at 0330, For 24 hours, ED to IP Admission albuterol 0.833 mg/ml / ipratropium bromide 0.167 mg/ml inhalation solution (4 sources) Anticholinergic, beta2-Adrenergic Agonist Start: 03-06-2024 End: 07-04-2024 ipratropium-albuteroL (DUONEB) 0.5 mg-3 mg(2.5 mg base)/3 mL nebulizer Inhale 3 mL in the morning and 3 mL at noon and 3 mL in the evening and 3 mL before bedtime. 03/06/2024 Active amiodarone hydrochloride 200 mg oral tablet (4 sources) Antiarrhythmic Start: 04-02-2024 End: 03-28-2025 take 1 tablet by mouth in the morning, then take 1 tablet by mouth at bedtime amiodarone (PACERONE) 200 mg tablet Take 1 tablet (200 mg total) by mouth in the morning and 1 tablet (200 mg total) before bedtime. 04/02/2024 03/28/2025 Active apixaban 5 mg oral tablet (4 sources) Factor Xa Inhibitor Start: 04-02-2024 End: 03-28-2025 take 1 tablet by mouth in the morning, then take 1 tablet by mouth at bedtime apixaban (ELIQUIS) 5 mg tablet Take 1 tablet (5 mg total) by mouth in the morning and 1 tablet (5 mg total) before bedtime. 04/02/2024 03/28/2025 Active atorvastatin 80 mg oral tablet (4 sources) HMG-CoA Reductase Inhibitor Start: 04-02-2024 End: 07-04-2024 take 1 tablet by mouth once daily atorvastatin (LIPITOR) 80 mg tablet Take 1 tablet (80 mg total) by mouth nightly. 04/02/2024 Active carvedilol 3.125 mg oral tablet (4 sources) alpha-Adrenergic Donavon, beta-Adrenergic Donavon Start: 04-30-2024 End: 04-30-2025 take 1 tablet by mouth in the morning, then take 1 tablet by mouth at bedtime carvediloL (COREG) 3.125 mg tablet Take 1 tablet (3.125 mg total) by mouth in the morning and 1 tablet (3.125 mg total) before bedtime. 04/30/2024 04/30/2025 Active clopidogrel 75 mg oral tablet (4 sources) P2Y12 Platelet Inhibitor Start: 04-02-2024 End: 07-04-2024 take 1 tablet by mouth in the morning clopidogreL (PLAVIX) 75 mg tablet Take 1 tablet (75 mg total) by mouth in the morning. 04/02/2024 Active dapagliflozin 10 mg oral tablet (3 sources) Sodium-Glucose Cotransporter 2 Inhibitor Start: 04-02-2024 End: 03-28-2025 take 1 tablet by mouth in the morning dapagliflozin propanediol (FARXIGA) 10 mg tablet Take 1 tablet (10 mg total) by mouth in the morning. 04/02/2024 03/28/2025 Active famotidine 20 mg oral tablet (2 sources) Histamine-2 Receptor Antagonist Start: 07-05-2024 End: 07-04-2024 take 20 mg by mouth once daily 20 mg, oral, Daily, First dose on Mon07/05/24 at 0900 Start: 06-29-2024 End: 07-04-2024 20 mg, intravenous, Every 24 hours scheduled, First dose on 06/29/24 at 0900, ED to IP Admission, Pharmacy to adjust dose based on renal function. Dilute to total volume of 5 mL with 0.9% sod chl and administer IVP over 2 minutes., Indication: Stress Ulcer Prophylaxis furosemide 40 mg oral tablet (3 sources) Loop Diuretic Start: 04-30-2024 End: 04-30-2025 furosemide (LASIX) 40 mg tablet Take 1 tablet (40 mg total) by mouth as needed. 04/30/2024 04/30/2025 Active lidocaine 0.05 mg/mg medicated patch (5 sources) Antiarrhythmic, Amide Local Anesthetic Start: 07-05-2024 apply 1 dose transdermal route every twelve hours in the morning lidocaine (LIDODERM) 5 % Indications: Fall in home, initial encounter Place 1 patch on the skin in the morning. Remove & Discard patch within 12 hours or as directed by . 07/05/2024 Active Start: 07-05-2024 apply 1 dose transde rmal route every twelve hours in the morning lidocaine (LIDODERM) 5 % Indications: Fall in home, initial encounter Place 1 patch on the skin in the morning. Remove & Discard patch within 12 hours or as directed by . 07/05/2024 Start: 06-29-2024 End: 07-04-2024 1 patch, transdermal, Admini ster over 12 Hours, Daily, First dose (after last modification) on Amna 07/04/24 at 0900, ED to IP Admission, applied to affected area on 12 hrs/off 12 hours., Time to remove patch (If no time is entered, patch will be removed before the next patch is applied.): 9:00 PM Completed/Discontinued Medications Medication Drug Class(es) Dates Sig (Normalized) Sig (Original) calcium chloride 0.0014 meq/ml / potassium chloride 0.004 meq/ml / sodium chloride 0.103 meq/ml / sodium lactate 0.028 meq/ml injectable solution (4 sources) Start: 06-29-2024 End: 06-29-2024 1,000 mL, intravenous, at 984 mL/hr, Administer over 61 Minutes, Once, On 06/29/24 at 0945, For 1 dose Start: 06-29-2024 End: 06-30-2024 take 100 mL intravenously every hour 100 mL/hr, intravenous, Continuous, Starting on 06/30/24 at 0530, For 1 day, ED to IP Admission Calcium Gluconate (1 source) Start: 06-29-2024 End: 07-04-2024 calcium gluconate IVPB 1000 mg/50 mL (20 mg/mL premix) cefadroxil 500 mg oral capsule (1 source) Cephalosporin Antibacterial Start: 05-21-2024 End: 07-04-2024 take 1 capsule by mouth in the morning, then take 1 capsule by mouth at bedtime cefaDROXil (DURICEF) 500 mg capsule Take 1 capsule (500 mg total) by mouth in the morning and 1 capsule (500 mg total) before bedtime. 05/21/2024 07/04/2024 Discontinued (Stop Taking at Discharge) docusate sodium 50 mg / sennosides, retirement 8.6 mg oral tablet (1 source) Start: 06-29-2024 End: 07-04-2024 take 2 tablets by mouth twice daily 2 tablet, oral, 2 times daily, First dose on 06/29/24 at 0900, ED to IP Admission 1 ml fentaNYL 0.05 mg/ml injection (1 source) Opioid Agonist Start: 06-29-2024 End: 07-02-2024 take 25 ug intravenously every hour as needed for pain 25 mcg, intravenous, Every 1 hour prn, severe pain - pain scale 7-10, Starting on 06/29/24 at 0316, ED to IP Admission, For severe pain unresponsive to oral pain medications, breakthrough pain, or patients unable to tolerate oral medications. Look-alike/sound -alike medication - verify indication for use. glucagon (rdna) 1 mg injection (1 source) Antihypoglycemic Agent Start: 06-29-2024 End: 07-04-2024 150 ml glucose 50 mg/ml injection (5 sources) Start: 06-30-2024 End: 07-01-2024 take 75 mL intravenously every hour 75 mL/hr, intravenous, Continuous, Starting on 07/01/24 at 0715, For 1 day Start: 06-30-2024 End: 07-01-2024 take 70 mg intravenously every hour 100 mL/hr, intravenous, Continuous PRN, blood glucose less than 70 mg/dL, Starting on 06/30/24 at 0543, For 1 day, ED to IP Admission, Use immediately following dextrose 50% or glucagon treatment for patients who are unconscious or NPO. Contact prescriber for additional orders. If blood glucose is not greater than 70 mg/dL after initial treatment, repeat treatment. Start: 06-29-2024 End: 07-04-2024 Start: 06-29-2024 End: 07-04-2024 25 mL, intravenous, As neede d, low blood sugar, blood glucose less than 70 mg/dL and unconscious or NPO with IV access, Starting on 06/29/24 at 0316, ED to IP Admission, Push over 1-3 minutes STAT. If conscious and not NPO, immediately follow with meal tray or high protein (7 grams) snack if tray not available. If NPO, initiate 5% dextrose in water at 100 mL/hr and contact prescriber for additional orders. If blood glucose is not greater than 70 mg/dL after initial treatment, repeat treatment. VESICANT (RED) Warning: HYPERTONIC solution. 3 ml insulin lispro 100 unt/ml pen injector (1 source) Insulin Analog Start: 06-29-2024 End: 07-04-2024 inject 2-10 [IU] by subcutaneous injection every six hours 2-10 Units, subcutaneous, Every 6 hours, First dose on 06/29/24 at 0600, ED to IP Admission, Daytime hyperglycemia dosing. For blood glucose 151-200 mg/dL, give 2 units. For blood glucose 201-250 mg/dL, give 4 units. For blood glucose 251-300 mg/dL, give 6 units. For blood glucose 301-350 mg/dL, give 8 units. For blood glucose 351-400 mg/dL, give 10 units. Give even if NPO or meals skipped. Do NOT give more often then every 4 hours when NPO. Notify prescriber if blood glucose greater than 400 mg/dL. Look-alike/sound-alike medication - verify indication for use. Prime with 2 units of insulin prior to administration. Prandial/supplemental Insulin. Pre-filled pens stable 28 days at room temperature. Insulin lispro should be administered within 15 minutes before or immediately after a meal. magnesium hydroxide 80 mg/ml oral suspension (1 source) Start: 07-03-2024 End: 07-04-2024 take 60 mL by mouth once daily as needed for constipation 60 mL, oral, Daily PRN, constipation, Starting on 07/03/24 at 1115, Shake well. magnesium sulfate IVPB 2000 mg/50 mL in iso-osmotic water (40 mg/mL premix) (1 source) Start: 06-29-2024 End: 07-04-2024 magnesium sulfate IVPB 2000 mg/50 mL in iso-osmotic water (40 mg/mL premix) memantine hydrochloride 10 mg oral tablet (4 sources) F-[id number]-[id number]-asp artate Receptor Antagonist Start: 06-29-2024 End: 07-04-2024 take 10 mg by mouth twice daily 10 mg, oral, 2 times daily, First dose on 06/29/24 at 2100 Start: 06-18-2024 take 1 capsule by [facility] every twenty-four hours in the morning memantine (NAMENDA XR) 21 mg capsule,sprinkle,ER 24hr Take 1 capsule (21 mg total) by mouth in the morning. 06/18/2024 Active nitrofurantoin, macrocrystals 25 mg / nitrofurantoin, monohydrate 75 mg oral capsule (1 source) Nitrofuran Antibacterial Start: 06-26-2024 End: 07-04-2024 take 1 capsule by mouth in the morning, then take 1 capsule by mouth at bedtime nitrofurantoin, macrocrystal-monohydrate, (MACROBID) 100 mg capsule Take 1 capsule (100 mg total) by mouth in the morning and 1 capsule (100 mg total) before bedtime. 06/26/2024 07/04/2024 Discontinued (Stop Taking at Discharge) 2 ml ondansetron 2 mg/ml injection (1 source) Serotonin-3 Receptor Antagonist Start: 06-29-2024 End: 07-04-2024 take 4 mg intravenously every six hours as needed for nausea 4 mg, intravenous, Every 6 hours PRN, nausea, Starting on 06/29/24 at 0316, ED to IP Admission, Administer over 2-5 minutes. polyethylene glycol 3350 [id number] mg powder for oral solution (2 sources) Osmotic Laxative Start: 07-03-2024 End: 07-04-2024 17 g, oral, 2 times daily, First dose (after last modification) on Mon07/03/24 at 2100, ED to IP Admission, Look-alike/sound-alike medication - verify indication for use. Dissolve 1 packet (17 gm) in 8 ounces of water, juice, soda, coffee or tea. Start: 06-29-2024 End: 07-03-2024 17 g, oral, Daily, First dos e on 06/29/24 at 0900, ED to IP Admission, Look-alike/sound-alike medication - verify indication for use. Dissolve 1 packet (17 gm) in 8 ounces of water, juice, soda, coffee or tea. Potassium Chloride (1 source) Start: 06-29-2024 End: 07-04-2024 potassium chloride (K-TAB,KL OR-CON) CR tablet 20-50 mEq potassium chloride IVPB 10 mEq/50 mL in water (0.2 mEq/mL premix) (1 source) Start: 06-29-2024 End: 07-04-2024 potassium chloride IVPB 10 m Eq/50 mL in water (0.2 mEq/mL premix) 1000 ml sodium chloride 9 mg/ml injection (4 sources) Start: 06-29-2024 End: 07-01-2024 3 mL/hr, intra-arterial, Continuous, Starting on 06/29/24 at 2330 Start: 06-29-2024 End: 07-04-2024 3 mL, intravenous, Every 12 hours scheduled, First dose on 06/29/24 at 0900, ED to IP Admission Start: 06-29-2024 End: 07-04-2024 take 20 mL intravenously every hour as needed 20 mL/hr, intravenous, Continuous PRN, per policy for blood product transfusion, Starting on 06/29/24 at 0543, Initiate prior to blood product transfusion. Continue before and after each blood product transfusion. Discontinue upon completion of blood product transfusion(s). Start: 06-29-2024 End: 07-04-2024 sodium phosphate 20 mmol in sodium chloride 0.9 % 250 mL IVPB (1 source) Start: 06-29-2024 End: 07-04-2024 sodium phosphate 20 mmol in sodium chloride 0.9 % 250 mL IVPB spironolactone 25 mg oral tablet (4 sources) Aldosterone Antagonist Start: 07-02-2024 End: 07-04-2024 take 12.5 mg by mouth once daily 12.5 mg, oral, Nightly, First dose on Mon07/02/24 at 2200 Start: 04-02-2024 End: 03-28-2025 take 0.5 tablet by mouth once daily spironolactone (ALDACTONE) 25 mg tablet Take 0.5 tablets (12.5 mg total) by mouth nightly. 04/02/2024 03/28/2025 Active Problems Active Problems Problem Classification Problem Date Documented Da te Episodic/Chronic Acute and unspecified renal failure (3 sources) Acute kidney failure with acute cortical necrosis; Translations: [Acute kidney failure, unspecified] Onset: 5 Episodic Acute posthemorrhagic anemia (2 sources) Acute posthemorrhagic anemia; Translations: [Acute posthemorrhagic anemia] Onset: 5 06-29-2024 Episodic Cardiac arrest and ventricular fibrillation (5 sources) Cardiac arrest, cause unspecified; Translations: [Ventricular fibrillation] Onset: 4 Chronic Cardiac dysrhythmias (6 sources) Paroxysmal atrial fibrillation; Translations: [Cardiac arrhythmia, unspecified] Onset: 4 Chronic Chronic kidney disease (2 sources) Chronic kidney disease, unspecified; Translations: [Chronic kidney disease, unspecified] Onset: 5 Chronic Chronic obstructive pulmonary disease and bronchiectasis (2 sources) Mixed simple and mucopurulent chronic bronchitis; Translations: [Mixed simple and mucopurulent chronic bronchitis] Onset: 4 Chronic Complications of surgical procedures or medical care (2 sources) Hypotension due to drugs; Translations: [Hypotension due to drugs] Onset: 5 Episodic Conditions associated with dizziness or vertigo (1 source) Dizziness Onset: 5 Episodic Conduction disorders (4 sources) Presence of automatic (implantable) cardiac defibrillator; Translations: [Encounter for checking and testing of cardiac pacemaker pulse generator [battery]] Onset: 4 Chronic Congestive heart failure; nonhypertensive (7 sources) Acute combined systolic (congestive) and diastolic (congestive) heart failure; Translations: [Chronic systolic (congestive) heart failure] Onset: 4 Chronic Coronary atherosclerosis and other heart disease (7 sources) Atherosclerotic heart disease of [place] coronary artery without angina pectoris; 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] Onset: 3 Chronic Crushing injury or internal injury (1 source) Minor contusion of left kidney, subsequent encounter; Translations: [Minor contusion of left kidney, subsequent encounter] Onset: 5 Episodic Disorders of lipid metabolism (6 sources) Hyperchylomicronemia; 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 E Codes: Fall (5 sources) Fall in home; Translations: [Unspecified fall, initial encounter] Onset: 5 06-29-2024 Episodic E Codes: Place of occurrence (1 source) Unspecified place in unspecified non-institutional (private) residence as the place of occurrence of the external cause; Translations: [Unspecified place in unspecified non-institutional (private) residence as the place of occurrence of the external cause] Onset: 5 Episodic Essential hypertension (2 sources) Essential (primary) hypertension; Translations: [Essential (primary) hypertension] Onset: 3 Chronic Fluid and electrolyte disorders (2 sources) Hypokalemia; Translations: [Hypokalemia] Onset: 5 Episodic Genitourinary symptoms and ill-defined conditions (4 sources) Retention of urine; Translations: [Retention of urine, unspecified] Onset: 4 Episodic Hypertension with complications and secondary hypertension (2 sources) Hypertensive heart disease with heart failure; Translations: [Hypertensive heart disease with heart failure] Onset: 4 Chronic Other diseases of kidney and ureters (3 sources) Other specified disorders of kidney and ureter; Translations: [Other specified disorders of kidney and ureter] Onset: 5 Chronic Other diseases of veins and lymphatics (2 sources) Venous insufficiency (chronic) (peripheral); Translations: [Venous insufficiency (chronic) (peripheral)] Onset: 5 Episodic Other gastrointestinal disorders (1 source) Constipation, unspecified; Translations: [Constipation, unspecified] Onset: 5 Episodic Other gastrointestinal disorders (1 source) Constipation Onset: 5 Episodic Other nervous system disorders (2 sources) Other abnormalities of gait and mobility; Translations: [Other abnormalities of gait and mobility] Onset: 5 Episodic Residual codes; unclassified (2 sources) Localized edema; Translations: [Localized edema] Onset: 5 Episodic Septicemia (except in labor) (1 source) Sepsis, unspecified organism; Translations: [Sepsis, unspecified organism] Onset: 5 Episodic Shock (1 source) Severe sepsis with septic shock; Translations: [Severe sepsis with septic shock] Onset: 5 Episodic Unclassified (1 source) Trauma Onset: 5 Unclassified (1 source) ems///[id number] y/o male Onset: 5 Unclassified (1 source) EMS Onset: 5 Unclassified (1 source) Supraventricular tachycardia, unspecified; Translations: [Supraventricular tachycardia, unspecified] Onset: 3 Unclassified (2 sources) Nephrolithiasis; Translations: [Nephrolithiasis] Onset: 4 Past or Other Problems Problem Classification Problem Date Documented Date Episodic/Chronic Calculus of urinary tract (3 sources) Calculus of kidney; Translations: [Calculus of kidney] Onset: 07-09-2024 Episodic E Codes: Fall (4 sources) Fall in home 07-04-2024 Malaise and fatigue (3 sources) Weakness; Translations: [Weakness] Onset: 06-26-2024 Episodic Mood disorders (2 sources) Mood disorders Onset: 06-29-2024 06-29-2024 Residual codes; unclassified (2 sources) Family history of diseases of the blood and blood-forming organs and certain disorders involving the immune mechanism; Translations: [Family history of diseases of the blood and blood-forming organs and certain disorders involving the immune mechanism] Onset: 08-30-2024 Episodic Residual codes; unclassified (2 sources) Pain, unspecified; Translations: [Pain, unspecified] Onset: 05-21-2024 Episodic Unclassified (1 source) Supraventricular tachycardia, unspecified; Translations: [Supraventricular tachycardia, unspecified] Onset: 08-30-2024 Urinary tract infections (3 sources) Acute cystitis without hematuria; Translations: [Urinary tract infection, site not specified] Onset: 06-26-2024 Episodic Results Test Name Value Interpretation Reference Range Facility Orders Onlyon 11-26-2024 Orders Only Normal [facility] Orders Onlyon 11-25-2024 Orders Only Normal [facility] 37on 11-12-2024 37 Normal [facility] Orders Onlyon 11-12-2024 Orders Only Normal [facility] 3710-30-2024 37 Normal [facility] Orders Onlyon 10-19-2024 Orders Only Normal [facility] Follow-Upon 10-17-2024 Follow-Up Normal [facility] Orders Onlyon 09-27-2024 Orders Only Normal [facility] ANESon 09-04-2024 ANES Normal [facility] ANES [facility] HISTOLOGY - TISSUE EXAMon LAB AP ADDENDUM 1 09-17-24: Normal [facility] Comment on above: Order Comment: Pre-o p diagnosis:Kidney stone [N20.0] Result Comment: This case was sent to the Urolithiasis Laboratory in [place], [place] for chemical analysis (please see accompanying report). Please see results below:Urolithiasis Results:No nidus observed in the specimenThe stone is composed of: Calcium oxalate monohydrate: 90% Calcium phosphate (Apatite): 10%Addendum electronically signed by Jaxon Acosta MD on 09/18/2024 at 4:41 PM Performed By: #### L [id number] ####[facility] (BEAKER)[email or web address] [address] LAB AP CASE REPORT Normal [facility] Comment on above: Order Comment: Pre-o p diagnosis:Kidney stone [N20.0] Result Comment: Surg ical Pathology Case: [id number] Provider: Tino Langston MD Collected: 09/04/2024 1108Ordering Location: [facility] Main Operating Room Received: 09/04/2024 1305Pathologist: JERONIMO Morenopecimen: Kidney, KIDNEY STONE FOR ANALYSIS Performed By: #### L [id number] ####[facility] (BEAKER)[address] [place] [address] LAB AP CLINICAL INFORMATION [facility] Comment on above: Order Comment: Pre-o p diagnosis:Kidney stone [N20.0] Result Comment: Pre- op diagnosis:Kidney stone [N20.0] Performed By: #### L [id number] ####[facility] (BEAKER)[address] [place] [address] LAB AP GROSS DESCRIPTION A. Kidney. Normal [facility] Comment on above: Order Comment: Pre-o p diagnosis:Kidney stone [N20.0] Result Comment: The specimen is received fresh labeled Neptali Loyola and kidney stone for analysis. It consists of a 0.3 x 0.2 x 0.1 cm yellow-brown, firm, roughened stone. The specimen is for gross examination only and is to be sent to the Urolithiasis lab in [place], [place] for chemical analysis.Rhiannon Mercado, Pathologists' Certified Nurse studentTabitha Aggarwal, Pathologists' Certified Nurse Student Performed By: #### L [id number] ####[facility] ([facility])[address] [place] [address] LAB AP MICROSCOPIC DESCRIPTION Gross examination only. [facility] Comment on above: Order Comment: Pre-o p diagnosis:Kidney stone [N20.0] Performed By: #### L [id number] ####[facility] ([facility])[address] [place] [address] LAB AP REPORT FINAL DIAGNOSIS NARRATIVE [facility] Comment on above: Order Comment: Pre-o p diagnosis:Kidney stone [N20.0] Result Comment: cherri Forman for analysis: - Gross examination consistent with renal calculus. - Specimen forwarded to reference laboratory for chemical analysis. Performed By: #### L [id number] ####[facility] (BEAKER)[address] [place] [address] HPon 09-04-2024 HP [facility] OPNOTEon 09-04-2024 OPNOTE [facility] POCT GLUCOSE METER UNSOLICIT ED RESULTSon 09-04-2024 Glucose [Mass/Vol] 80 mg/dL Normal 70-105 [facility] Comment on above: Order Comment: Waive d Testing in the ED is performed under the ED CLIA certificate #[id number]. Result Comment: jhag eman Performed By: #### L [id number] ####[facility] ([facility] [place] [address] APTTon 08-30-2024 ACTIVATED PARTIAL THROMBOPLASTIN TIME IN PPP BY COAGULATION ASSAY 30.3 Seconds Normal 25.0-35.0 [facility] Comment on above: Result Comment: Clin ical significance of the APTT is questionable in the presence of heparin. Performed By: #### L [id number] ####[facility] ([facility])[address] [place] [address] CBC WITH AUTO DIFFERENTIALon 08-30-2024 Basophils (Bld) [#/Vol] 0.06 10*3/uL Normal 0.00-0.20 [facility] Comment on above: Performed By: #### L [id number] ####[facility] ([facility])[address] [place] [address] Basophils/100 WBC (Bld) 1.0 % Normal 0.0-1.0 [facility] Comment on above: Performed By: #### L [id number] ####[facility] ([facility])[address] [place] [address] Eosinophils (Bld) [#/Vol] 0.24 10*3/uL Normal 0.00-0.5 0 [facility] Comment on above: Performed By: #### L [id number] ####[facility] ([facility])[address] [place] [address] Eosinophils/100 WBC (Bld) 3.8 % Normal 0.0-6.0 [facility] Comment on above: Performed By: #### L [id number] ####[facility] ([facility])[address] [place] [address] Erythrocyte distribution width (RBC) [Ratio] 17.0 % High 11.5-15.0 [facility] Comment on above: Performed By: #### L [id number] ####[facility] ([facility] [place] [address] ERYTHROCYTE MEAN CORPUSCULAR HEMOGLOBIN CONCENTRATION (G/DL) BY AUTOMATED 31.2 g/dL Low 32.0-35.0 [facility] Comment on above: Performed By: #### L [id number] ####[facility] (BEAKER)[address] [place] [address] Hematocrit (Bld) [Volume fraction] 42.6 % Normal 39.0-50.0 [facility] Comment on above: Performed By: #### L [id number] ####[facility] (BEAKER)[address] [place] [address] Hemoglobin (Bld) [Mass/Vol] 13.3 g/dL Normal 13.0-17.0 [facility] Comment on above: Performed By: #### L [id number] ####[facility] (BEAKER)[address] [place] [address] Immature granulocytes (Bld) [#/Vol] 0.02 10*3/uL Normal 0.00-0.20 [facility] Comment on above: Performed By: #### L [id number] ####[facility] (BEAKER)[address] [place] [address] Immature granulocytes/100 WBC (Bld) 0.3 % Normal 0.0-1.0 [facility] Comment on above: Performed By: #### L [id number] ####[facility] (BEAKER)[address] [place] [address] Lymphocytes (Bld) [#/Vol] 1.29 10*3/uL Normal 1.20-4.0 0 [facility] Comment on above: Performed By: #### L [id number] ####[facility] (BEAKER)[address] [place] [address] Lymphocytes/100 WBC (Bld) 20.6 % Normal 20.0-45.0 [facility] Comment on above: Performed By: #### L [id number] ####[facility] (BEAKER)[address] [place] [address] MCH (RBC) [Entitic mass] 30.5 pg Normal 27.0-33.0 [facility] Comment on above: Performed By: #### L [id number] ####[facility] (BEAKER)[address] [place] [address] MCV (RBC) [Entitic vol] 97.7 fL Normal 82.0-98.0 [facility] Comment on above: Performed By: #### L [id number] ####[facility] (BEAKER)[address] [place] [address] Monocytes (Bld) [#/Vol] 0.53 10*3/uL Normal 0.10-1.00 [facility] Comment on above: Performed By: #### L [id number] ####[facility] (BEAKER)[address] [place] [address] Monocytes/100 WBC (Bld) 8.5 % Normal 5.0-12.0 U [facility] Comment on above: Performed By: #### L [id number] ####[facility] (BEAKER)[address] [place] [address] Neutrophils (Bld) [#/Vol] 4.12 10*3/uL Normal 1.60-7.6 0 [facility] Comment on above: Performed By: #### L [id number] ####[facility] (BEAKER)[address], [place] [address] Neutrophils/100 WBC (Bld) 65.8 % Normal 40.0-72.0 [facility] Comment on above: Performed By: #### L [id number] ####[facility] (BEAKER)[address] [place] [address] NRBC (PER 100 WBCS) BY AUTOMATED COUNT 0.0 % Normal 0 [facility] Comment on above: Performed By: #### L [id number] ####[facility] (BEAKER)[address] [place] [address] PLATELETS (10*3/UL) IN BLOOD AUTOMATED COUNT 189 10*3/uL Normal 150-400 [facility] Comment on above: Performed By: #### L [id number] ####[facility] (BEAKER)[address] [place] [address] RBC (Bld) [#/Vol] 4.36 10*6/uL Normal 4.20-5.70 [facility] Comment on above: Performed By: #### L [id number] ####[facility] ([employer])[address] [place] [address] WBC (Bld) [#/Vol] 6.26 10*3/uL Normal 4.00-10.60 [facility] Comment on above: Performed By: #### L [id number] ####[facility] (BEJAKE)[address] [place] [address] HPon 08-30-2024 HP Normal [facility] Labon 08-30-2024 Lab Normal [facility] PROTIME-INRon 08-30-2024 INR IN PPP BY COAGULATION ASSAY 1.15 High 0.90-1.10 [facility] Comment on above: Result Comment: ACCC P RECOMMENDED INR FOR WARFARIN THERAPY CONDITION INRPROPHYLAXIS OF VENOUS THROMBOSIS 2-3(HIGH-RISK SURGERY)TREATMENT OF VENOUS THROMBOSIS 2-3TREATMENT OF PULMONARY EMBOLISM 2-3PREVENTION OF SYSTEMIC EMBOLISM: 2-3 ACUTE MYOCARDIAL INFARCTION TISSUE HEART VALVES VALVULAR HEART DISEASE ATRIAL FIBRILLATION RECURRENT SYSTEMIC EMBOLISMMECHANICAL HEART VALVE 2.5-3.5 FRO M: ORAL ANTICOAGULANTS. MECHANISM OF ACTION, CLINICAL EFFECTIVENESS, AND OPTIMAL THERAPEUTIC RANGE. CHEST 1995;108:231S-246S. Performed By: #### L [id number] ####[facility] ([employer])[address] [place] [address] PROTHROMBIN TIME (PT) IN PPP BY COAGULATION ASSAY 14.7 Seconds Normal 12.3-14.8 [facility] Comment on above: Performed By: #### L [id number] ####[facility] ([facility])[address] [place] [address] Pre-Admission Testingon 08-13 Pre-Admission Testing [facility] 08-30-2024 THYROXINE (T4) FREE (NG/DL) IN SER/PLAS 1.24 ng/dL Normal 0.71-1.85 [facility] Comment on above: Performed By: #### L [id number] ####[facility] ([facility])[address] [place] [address] TSHon 08-30-2024 THYROTROPIN (MIU/L) IN SER/PLAS BY DETECTION LIMIT <= 0.05 MIU/L 2.01 mIU/L Normal 0.34-5.60 [facility] Comment on above: Performed By: #### L [id number] ####[facility] ([facility])[address] [place] [address] Urine Cultureon 08-29-2024 Bacteria identified Cx Nom (U) <9,000 colonies/ml mixed bacterial skin contaminants 2 Days PERFORMED BY: [place] [address] PATHOLOGIST WOUND CARE COORDINATOR MARTINE BAIN M.D. Normal [facility] Comment on above: Performed By: #### C UU #### [address] 36on 08-02-2024 36 Called YOHANA ( son ) Patrice to reschedule sx from 08/13 - no answer , lvm for him to call back in office. Normal [facility] 36on 08-01-2024 36 Pt is scheduled surgery for 08/13/24 and needs to change the date. Please advise and call patient's son with new date. Normal [facility] Follow-Upon 07-19-2024 Follow-Up Normal [facility] CBC AND AUTO DIFFon 02-25-20 25 ABSOLUTE BASOPHIL 0.1 X10E9/L Normal 0.0-0.2 [facility] Comment on above: Performed By: #### P INR, 18112-1 #### [facility] ([id number]) [address] [place] [address] #### CBCA, CMP #### [facility] ([id number]) [address], [address] [place] [address] ABSOLUTE NEUTROPHIL 5.3 X10E9/L Normal 1.5-6.6 [facility] Comment on above: Performed By: #### P INR, 91569-8 #### [facility] ([id number]) [address] [place] [address] 40329 #### CBCA, CMP #### [facility] ([id number]) [address], [address] [place] [address] Basophils/100 WBC (Bld) 0.7 % Normal [facility] Comment on above: Performed By: #### P INR, 80194-1 #### [facility] ([id number]) [address] [place] [address] 86475 #### CBCA, CMP #### [facility] ([id number]) [address], [address] [place] [address] Eosinophils (Bld) [#/Vol] 0.1 10*3/uL Normal 0.0-0.4 [facility] Comment on above: Performed By: #### P INR, 63797-5 #### [facility] ([id number]) [address] [place] [address] 03110 #### CBCA, CMP #### [facility] ([id number]) [address], [address] [place] [address] Eosinophils/100 WBC (Bld) 1.8 % Normal [facility] Comment on above: Performed By: #### P INR, 29953-1 #### [facility] ([id number]) [address] [place] [address] 89319 #### CBCA, CMP #### [facility] ([id number]) [address], [address] [place] [address] Erythrocyte distribution width (RBC) [Ratio] 15.3 % High 11.5-15.0 [facility] Comment on above: Performed By: #### P INR, 70922-1 #### [facility] ([id number]) [address] [place] [address] 72908 #### CBCA, CMP #### [facility] ([id number]) [address], [address] [place] [address] Hematocrit (Bld) [Volume fraction] 23.8 % Low 39-49 [facility] Comment on above: Performed By: #### P INR, 87578-8 #### [facility] ([id number]) [address] [place] [address] 64998 #### CBCA, CMP #### [facility] ([id number]) [address], [address] [place] [address] Hemoglobin (Bld) [Mass/Vol] 8.1 g/dL Low 13.0-17.0 [facility] Comment on above: Performed By: #### P INR, 02209-3 #### [facility] ([id number]) [address] [place] [address] 74859 #### CBCA, CMP #### [facility] ([id number]) [address], [address] [place] [address] Lymphocytes (Bld) [#/Vol] 1.2 10*3/uL Normal 1.0-3.5 [facility] Comment on above: Performed By: #### P INR, 37047-6 #### [facility] ([id number]) [address] [place] [address] 74819 #### CBCA, CMP #### [facility] ([id number]) [address] [facility], [address] [place] [address] Lymphocytes/100 WBC (Bld) 16.3 % Normal [facility] Comment on above: Performed By: #### P INR, 55840-8 #### [facility] ([id number]) [address] [place] [address] 25763 #### CBCA, CMP #### [facility] ([id number]) [address] [facility], [address] [place] [address] MCH (RBC) [Entitic mass] 31.8 pg Normal 27-34 [facility] Comment on above: Performed By: #### P INR, 44030-8 #### [facility] ([id number]) [address] [place] [address] 38896 #### CBCA, CMP #### [facility] ([id number]) [address] [facility], [address] [place] [address] MCHC (RBC) [Mass/Vol] 34.1 g/dL Normal 32-36 [facility] Comment on above: Performed By: #### P INR, 68504-0 #### [facility] ([id number]) [address] [place] [address] 73344 #### CBCA, CMP #### [facility] ([id number]) [address] [facility], [address] [place] [address] MCV (RBC) [Entitic vol] 93 fL Normal 80-100 P [facility] Comment on above: Performed By: #### P INR, 15993-6 #### [facility] ([id number]) [address] [place] [address] 02181 #### CBCA, CMP #### [facility] ([id number]) [address], [address] [place] [address] Monocytes (Bld) [#/Vol] 0.5 10*3/uL Normal 0-0.9 [facility] Comment on above: Performed By: #### P INR, 15208-9 #### [facility] ([id number]) [address] [place] [address] 81934 #### CBCA, CMP #### [facility] ([id number]) [address], [address] [place] [address] Monocytes/100 WBC (Bld) 7.0 % Normal [facility] Comment on above: Performed By: #### P INR, 67272-7 #### [facility] ([id number]) [address] [place] [address] 47579 #### CBCA, CMP #### [facility] ([id number]) [address], [address] [place] [address] Neutrophils/100 WBC (Bld) 74.2 % Normal [facility] Comment on above: Performed By: #### P INR, 49879-8 #### [facility] ([id number]) [address] [place] [address] 69754 #### CBCA, CMP #### [facility] ([id number]) [address], [address] [place] [address] Platelet mean volume (Bld) [Entitic vol] 8.7 fL Normal 7-12 [facility] Comment on above: Performed By: #### P INR, 13491-8 #### [facility] ([id number]) [address] [place] [address] 49207 #### CBCA, CMP #### [facility] ([id number]) [address] [place] [address], [address] [place] [address] Platelets (Bld) [#/Vol] 284 10*3/uL Normal 150-450 [facility] Comment on above: Performed By: #### P INR, 40071-2 #### [facility] ([id number]) [address] [place] [address] 86726 #### CBCA, CMP #### [facility] ([id number]) [address] [place] [address], [address] [place] [address] RBC COUNT 2.55 X10E12/L Low 4.10-5.70 [facility] Comment on above: Performed By: #### P INR, 07998-8 #### [facility] ([id number]) [address] [place] [address] 87326 #### CBCA, CMP #### [facility] ([id number]) [address] [place] [address], [address] [place] [address] WBC (Bld) [#/Vol] 7.2 10*3/uL Normal 4.0-11.0 [facility] Comment on above: Performed By: #### P INR, 82201-9 #### [facility] ([id number]) [address] [place] [address] 92848 #### CBCA, CMP #### [facility] ([id number]) [address] [place] [address], [address] [place] [address] COMPREHENSIVE METABOLIC PANE Larry 07-09-2024 Albumin [Mass/Vol] 2.6 g/dL Low 3.2-5.3 [facility] Comment on above: Performed By: #### P INR, 02526-9 #### [facility] ([id number]) [address] [place] [address] 71669 #### CBCA, CMP #### [facility] ([id number]) [address] [place] [address], [address] [place] [address] ALP [Catalytic activity/Vol] 73 U/L Normal 39-130 [facility] Comment on above: Performed By: #### P INR, 24834-6 #### [facility] ([id number]) [address] [place] [address] 84789 #### CBCA, CMP #### [facility] ([id number]) [address], [address] [place] [address] ALT [Catalytic activity/Vol] 37 U/L Normal 0-40 [facility] Comment on above: Performed By: #### P INR, 69499-6 #### [facility] ([id number]) [address] [place] [address] 67941 #### CBCA, CMP #### [facility] ([id number]) [address], [address] [place] [address] Anion gap [Moles/Vol] 6 mmol/L Normal 5-15 [facility] Comment on above: Performed By: #### P INR, 02674-2 #### [facility] ([id number]) [address] [place] [address] 94696 #### CBCA, CMP #### [facility] ([id number]) [address], [address] [place] [address] AST [Catalytic activity/Vol] 58 U/L High 0-41 [facility] Comment on above: Performed By: #### P INR, 28966-5 #### [facility] ([id number]) [address] [place] [address] 82562 #### CBCA, CMP #### [facility] ([id number]) [address], [address] [place] [address] Bilirubin [Mass/Vol] 1.0 mg/dL Normal 0.3-1.2 [facility] Comment on above: Performed By: #### P INR, 69020-8 #### [facility] ([id number]) [address] [place] [address] 55007 #### CBCA, CMP #### [facility] ([id number]) [address] [place] [address] Calcium [Mass/Vol] 8.5 mg/dL Normal 8.5-10.5 [facility] Comment on above: Performed By: #### P INR, 43358-2 #### [facility] ([id number]) [address] [place] [address] 82907 #### CBCA, CMP #### [facility] ([id number]) [address], [address] [place] [address] Chloride [Moles/Vol] 106 mmol/L Normal 98-109 [facility] Comment on above: Performed By: #### P INR, 60560-2 #### [facility] ([id number]) [address] [place] [address] 44961 #### CBCA, CMP #### [facility] ([id number]) [address] [place] [address] CO2 [Moles/Vol] 26 mmol/L Normal 22-32 [facility] Comment on above: Performed By: #### P INR, 75866-4 #### [facility] ([id number]) [address] [place] [address] 16859 #### CBCA, CMP #### [facility] ([id number]) [address] [place] [address] Creatinine [Mass/Vol] 1.72 mg/dL High 0.70-1.20 [facility] Comment on above: Result Comment: METH OD TRACEABLE TO IDMS STANDARD Performed By: #### P INR, 16227-3 #### [facility] ([id number]) [address] [place] [address] 50334 #### CBCA, CMP #### [facility] ([id number]) [address], [address] [place] [address] GFR/1.73 sq M.predicted among non-blacks MDRD (S/P/Bld) [Vol rate/Area] 40 mL/min/{1.73_m2} Low >59 Pr [facility] Comment on above: Result Comment: Reported eGFR is based on the CKD-EPI 2020 equation that does not use a race coefficient. Performed By: #### P INR, 95382-4 #### [facility] ([id number]) [address] [place] [address] 78175 #### CBCA, CMP #### [facility] ([id number]) [address] [place] [address] Glucose [Mass/Vol] 97 mg/dL Normal 65-99 [facility] Comment on above: Performed By: #### P INR, 58758-8 #### [facility] ([id number]) [address] [place] [address] 50894 #### CBCA, CMP #### [facility] ([id number]) [address], [address] [place] [address] Potassium [Moles/Vol] 4.0 mmol/L Normal 3.5-5.0 [facility] Comment on above: Performed By: #### P INR, 42181-4 #### [facility] ([id number]) [address] [place] [address] 07466 #### CBCA, CMP #### [facility] ([id number]) [address], [address] [place] [address] Protein [Mass/Vol] 6.4 g/dL Normal 6.0-8.0 [facility] Comment on above: Performed By: #### P INR, 92173-1 #### [facility] ([id number]) [address] [place] [address] #### CBCA, CMP #### [facility] ([id number]) [address] [place] [address] Sodium [Moles/Vol] 138 mmol/L Normal 134-146 [facility] Comment on above: Performed By: #### P INR, 53579-0 #### [facility] ([id number]) [address] [place] [address] #### CBCA, CMP #### [facility] ([id number]) [address], [address] [place] [address] Urea nitrogen [Mass/Vol] 30 mg/dL High 5-27 [facility] Comment on above: Performed By: #### P INR, 92082-5 #### [facility] ([id number]) [address] [place] [address] #### CBCA, CMP #### [facility] ([id number]) [address], [address] [place] [address] CT ABDOMEN AND PELVIS W CONT on 07-09-2024 CT ABDOMEN AND PELVIS W CONT CT ABDOMEN AND PELVIS W CONT History: Bowel obstruction suspected Exam/Technique: CT images of abdomen and pelvis were obtained following intravenous contrast injection. CT does automated exposure control was utilized. All CT scans at this facility use dose modulation, iterative reconstruction, and/or weight based dosing when appropriate to reduce radiation dose to as low as reasonably achievable. Comparison: CT abdomen pelvis 07/05/2024 Findings: Left lower lobe airspace disease and small effusion are stable superimposed pneumonia cannot be excluded. Clinical correlation is advised. The left perinephric hematoma is essentially stable with layering hyperdensities likely hematocrit. There is no gross hydronephrosis. However, there are coarse calcified stones throughout the left renal collecting system stable compared to prior exam. Left side ureteral stent is present with the proximal loop partially deformed at the renal pelvis and the distal loop in the urinary bladder. There is moderate to large left hydroureter with multiple coarse calcified distal left ureteral stone largest measures 8 mm. There is periureteral stranding grossly stable compared to prior exam. Right kidney is grossly unremarkable except for exophytic simple cyst. Urinary bladder is mildly distended with few calcified stones at the dependent aspect. There is redundant and gas distended sigmoid colon. There is moderate fecal burden throughout large bowel loops with no gross bowel obstruction. Small bowel loops are grossly unremarkable. There is no free peritoneal air or fluid. Visceral organs are grossly stable. Gallbladder is mildly distended. IMPRESSION: Left lower lobe airspace disease possibly atelectasis and small pleural effusion are stable however superimposed pneumonia cannot be excluded. Left perinephric and subcapsular hematoma is essentially stable if not slightly smaller in size with no gross active contrast extravasation. There is no gross left-sided hydronephrosis. However there is moderate to large left hydroureter with periureteral stranding and multiple calcified 8 mm stones at the distal left ureter. Residual calcified stones throughout left collecting system are stable. There is gas distended redundant sigmoid colon with moderate fecal burden throughout large bowel loops but no gross high-grade bowel obstruction. 3 Finalized by Albina Cobb MD on 07/09/2024 6:35 PM Normal [facility] LIPASEon 07-09-2024 Lipase [Catalytic activity/Vol] 32 U/L Normal 17-40 [facility] Comment on above: Performed By: #### P INR, 26905-1 #### [facility] ([id number]) [address] [place] [address], [place] [address] #### CBCA, CMP #### [facility] ([id number]) [address] [facility], [address] [place] [address] Lactate (P rosanne) [Moles/Vol]o n 07-09-2024 LACTATE W/REFLEX 1.2 mmol/L Normal 0.4-2.0 [facility] Comment on above: Result Comment: Result did not trigger repeat Lactate, re-order if needed. Performed By: #### P INR, 45760-4 #### [facility] ([id number]) [address] [place] [address] 60128 #### CBCA, CMP #### [facility] ([id number]) [address] [facility], [address] [place] [address] MAGNESIUMon 07-09-2024 Magnesium [Mass/Vol] 2.2 mg/dL Normal 1.8-2.6 [facility] Comment on above: Performed By: #### P INR, 19744-3 #### [facility] ([id number]) [address] [place] [address] 31030 #### CBCA, CMP #### [facility] ([id number]) [address] [facility], [address] [place] [address] URINE CULTUREon 07-09-2024 Bacteria identified Cx Nom (U) CULTURE RESULTS NO GROWTH AT <1000 CFU/mL Normal [facility] Comment on above: Performed By: #### P INR, 59448-6 #### [facility] ([id number]) [address] [place] [address] 43260 #### CBCA, CMP #### [facility] ([id number]) [address], [address] [place] [address] URN MACROSCOPIC NURon 2024 BILIRUBIN DIANE Small Abnormal NEG [facility] Comment on above: Performed By: #### P INR, 65480-9 #### [facility] ([id number]) [address] [place] [address] 43210 #### CBCA, CMP #### [facility] ([id number]) [address] [facility], [address] [place] [address] BLOOD/HGB DIANE Large Abnormal NEG [facility] Comment on above: Performed By: #### P INR, 75370-2 #### [facility] ([id number]) [address] [place] [address] 35822 #### CBCA, CMP #### [facility] ([id number]) [address], [address] [place] [address] GLUCOSE DIANE >=1000 Abnormal NEG [facility] Comment on above: Performed By: #### P INR, 73103-2 #### [facility] ([id number]) [address] [place] [address] 27547 #### CBCA, CMP #### [facility] ([id number]) [address], [address] [place] [address] KETONES DIANE Negative Normal NEG [facility] Comment on above: Performed By: #### P INR, 47488-8 #### [facility] ([id number]) [address] [place] [address] 64277 #### CBCA, CMP #### [facility] ([id number]) [address], [address] [place] [address] LEUKOCYTE ESTERASE DIANE Large Abnormal NEG Pr [facility] Comment on above: Performed By: #### P INR, 32580-4 #### [facility] ([id number]) [address] [place] [address] 75147 #### CBCA, CMP #### [facility] ([id number]) [address], [address] [place] [address] NITRITE DIANE Negative Normal NEG [facility] Comment on above: Performed By: #### P INR, 03583-3 #### [facility] ([id number]) [address] [place] [address] 55045 #### CBCA, CMP #### [facility] ([id number]) [address], [address] [place] [address] PH DIANE 7.0 Normal 5.0-8.5 [facility] Comment on above: Performed By: #### P INR, 60602-6 #### [facility] ([id number]) [address] [place] [address] 91727 #### CBCA, CMP #### [facility] ([id number]) [address], [address] [place] [address] PROTEIN DIANE >=300 Abnormal NEG [facility] Comment on above: Performed By: #### P INR, 26490-6 #### [facility] ([id number]) [address] [place] [address] 08869 #### CBCA, CMP #### [facility] ([id number]) [address] [facility], [address] [place] [address] SPECIFIC GRAVITY DIANE 1.015 Normal 1.003-1 .03 5 [facility] Comment on above: Performed By: #### P INR, 65617-0 #### [facility] ([id number]) [address] [place] [address] 87354 #### CBCA, CMP #### [facility] ([id number]) [address] [facility], [address] [place] [address] UROBILINOGEN DIANE >=8.0 Normal <1.1 [facility] Comment on above: Performed By: #### P INR, 69727-9 #### [facility] ([id number]) [address] [place] [address] 68275 #### CBCA, CMP #### [facility] ([id number]) [address], [address] [place] [address] CBC AND AUTO DIFFon 07-05-19 25 ABSOLUTE BASOPHIL 0.1 X10E9/L Normal 0.0-0.2 [facility] Comment on above: Performed By: #### P INR, 71959-4 #### [facility] ([id number]) [address] [place] [address] 67757 #### CBCA, CMP #### [facility] ([id number]) [address] [facility], [address] [place] [address] ABSOLUTE NEUTROPHIL 8.8 X10E9/L High 1.5-6.6 [facility] Comment on above: Performed By: #### P INR, 25360-0 #### [facility] ([id number]) [address] [place] [address] 61887 #### CBCA, CMP #### [facility] ([id number]) [address] [place] [address], [address] [place] [address] Basophils/100 WBC (Bld) 0.5 % Normal [facility] Comment on above: Performed By: #### P INR, 81125-9 #### [facility] ([id number]) [address] [place] [address] 41460 #### CBCA, CMP #### [facility] ([id number]) [facility] [facility], [address] [place] [address] Eosinophils (Bld) [#/Vol] 0.1 10*3/uL Normal 0.0-0.4 [facility] Comment on above: Performed By: #### P INR, 39561-3 #### [facility] ([id number]) [address] [place] [address] 43700 #### CBCA, CMP #### [facility] ([id number]) [address] [facility], [address] [place] [address] Eosinophils/100 WBC (Bld) 1.1 % Normal [facility] Comment on above: Performed By: #### P INR, 26153-9 #### [facility] ([id number]) [address] [place] [address] 14799 #### CBCA, CMP #### [facility] ([id number]) [address], [address] [place] [address] Erythrocyte distribution width (RBC) [Ratio] 15.2 % High 11.5-15.0 [facility] Comment on above: Performed By: #### P INR, 83677-7 #### [facility] ([id number]) [address] [place] [address] 62463 #### CBCA, CMP #### [facility] ([id number]) [address] [facility], [address] [place] [address] Hematocrit (Bld) [Volume fraction] 32.7 % Low 39-49 [facility] Comment on above: Performed By: #### P INR, 81058-5 #### [facility] ([id number]) [address] [place] [address] 90496 #### CBCA, CMP #### [facility] ([id number]) [address] [facility], [address] [place] [address] Hemoglobin (Bld) [Mass/Vol] 10.9 g/dL Low 13.0-17.0 [facility] Comment on above: Performed By: #### P INR, 35361-7 #### [facility] ([id number]) [address] [place] [address] 51778 #### CBCA, CMP #### [facility] ([id number]) [address], [address] [place] [address] Lymphocytes (Bld) [#/Vol] 1.0 10*3/uL Normal 1.0-3.5 [facility] Comment on above: Performed By: #### P INR, 98553-7 #### [facility] ([id number]) [address] [place] [address] 16829 #### CBCA, CMP #### [facility] ([id number]) [address], [address] [place] [address] Lymphocytes/100 WBC (Bld) 9.0 % Normal [facility] Comment on above: Performed By: #### P INR, 41672-6 #### [facility] ([id number]) [address] [place] [address] 36277 #### CBCA, CMP #### [facility] ([id number]) [address], [address] [place] [address] MCH (RBC) [Entitic mass] 31.0 pg Normal 27-34 [facility] Comment on above: Performed By: #### P INR, 51320-6 #### [facility] ([id number]) [address] [place] [address] 87506 #### CBCA, CMP #### [facility] ([id number]) [address], [address] [place] [address] MCHC (RBC) [Mass/Vol] 33.2 g/dL Normal 32-36 [facility] Comment on above: Performed By: #### P INR, 97166-9 #### [facility] ([id number]) [address] [place] [address] 36037 #### CBCA, CMP #### [facility] ([id number]) [address], [address] [place] [address] MCV (RBC) [Entitic vol] 93 fL Normal 80-100 [facility] Comment on above: Performed By: #### P INR, 17051-8 #### [facility] ([id number]) [address] [place] [address] 98861 #### CBCA, CMP #### [facility] ([id number]) [address], [address] [place] [address] Monocytes (Bld) [#/Vol] 1.0 10*3/uL High 0-0.9 [facility] Comment on above: Performed By: #### P INR, 91599-2 #### [facility] ([id number]) [address] [place] [address] 08639 #### CBCA, CMP #### [facility] ([id number]) [address] [place] [address] Monocytes/100 WBC (Bld) 8.9 % Normal P [facility] Comment on above: Performed By: #### P INR, 10121-4 #### [facility] ([id number]) [address] [place] [address] 62884 #### CBCA, CMP #### [facility] ([id number]) [address], [address] [place] [address] Neutrophils/100 WBC (Bld) 80.5 % Normal [facility] Comment on above: Performed By: #### P INR, 44026-3 #### [facility] ([id number]) [address] [place] [address] 13745 #### CBCA, CMP #### [facility] ([id number]) [address], [address] [place] [address] Platelet mean volume (Bld) [Entitic vol] 8.6 fL Normal 7-12 [facility] Comment on above: Performed By: #### P INR, 10027-0 #### [facility] ([id number]) [address] [place] [address] 39672 #### CBCA, CMP #### [facility] ([id number]) [address], [address] [place] [address] Platelets (Bld) [#/Vol] 275 10*3/uL Normal 150-450 [facility] Comment on above: Performed By: #### P INR, 68161-1 #### [facility] ([id number]) [address] [place] [address] 41864 #### CBCA, CMP #### [facility] ([id number]) [address] [facility], [address] [place] [address] RBC COUNT 3.50 X10E12/L Low 4.10-5.70 [facility] Comment on above: Performed By: #### P INR, 08470-1 #### [facility] ([id number]) [address] [place] [address] 40927 #### CBCA, CMP #### [facility] ([id number]) [address] [facility], [address] [place] [address] WBC (Bld) [#/Vol] 10.9 10*3/uL Normal 4.0-11.0 [facility] Comment on above: Performed By: #### P INR, 20953-0 #### [facility] ([id number]) [address] [place] [address] 14280 #### CBCA, CMP #### [facility] ([id number]) [address], [address] [place] [address] COMPREHENSIVE METABOLIC PANE Larry 07-05-2024 Albumin [Mass/Vol] 2.6 g/dL Low 3.2-5.3 [facility] Comment on above: Performed By: #### P INR, 38920-6 #### [facility] ([id number]) [address] [place] [address] 55122 #### CBCA, CMP #### [facility] ([id number]) [address] [facility], [address] [place] [address] ALP [Catalytic activity/Vol] 71 U/L Normal 39-130 [facility] Comment on above: Performed By: #### P INR, 77770-2 #### [facility] ([id number]) [address] [place] [address] 35031 #### CBCA, CMP #### [facility] ([id number]) [address], [address] [place] [address] ALT [Catalytic activity/Vol] 14 U/L Normal 0-40 [facility] Comment on above: Performed By: #### P INR, 02437-5 #### [facility] ([id number]) [address] [place] [address] 74136 #### CBCA, CMP #### [facility] ([id number]) [address] [facility], [address] [place] [address] Anion gap [Moles/Vol] 5 mmol/L Normal 5-15 [facility] Comment on above: Performed By: #### P INR, 77587-8 #### [facility] ([id number]) [address] [place] [address] 20374 #### CBCA, CMP #### [facility] ([id number]) [address] [facility], [address] [place] [address] AST [Catalytic activity/Vol] 29 U/L Normal 0-41 [facility] Comment on above: Performed By: #### P INR, 46196-2 #### [facility] ([id number]) [address] [place] [address] 92136 #### CBCA, CMP #### [facility] ([id number]) [address], [address] [place] [address] Bilirubin [Mass/Vol] 1.3 mg/dL High 0.3-1.2 [facility] Comment on above: Performed By: #### P INR, 92294-6 #### [facility] ([id number]) [address] [place] [address] 58675 #### CBCA, CMP #### [facility] ([id number]) [address], [address] [place] [address] Calcium [Mass/Vol] 8.6 mg/dL Normal 8.5-10.5 [facility] Comment on above: Performed By: #### P INR, 76859-4 #### [facility] ([id number]) [address] [place] [address] 86783 #### CBCA, CMP #### [facility] ([id number]) [address], [address] [place] [address] Chloride [Moles/Vol] 105 mmol/L Normal 98-109 [facility] Comment on above: Performed By: #### P INR, 88871-9 #### [facility] ([id number]) [address] [place] [address] 75343 #### CBCA, CMP #### [facility] ([id number]) [address], [address] [place] [address] CO2 [Moles/Vol] 28 mmol/L Normal 22-32 [facility] Comment on above: Performed By: #### P INR, 27024-1 #### [facility] ([id number]) [address] [place] [address] 54295 #### CBCA, CMP #### [facility] ([id number]) [address], [address] [place] [address] Creatinine [Mass/Vol] 1.24 mg/dL High 0.70-1.20 [facility] Comment on above: Result Comment: METH OD TRACEABLE TO IDMS STANDARD Performed By: #### P INR, 48535-8 #### [facility] ([id number]) [address] [place] [address] 91207 #### CBCA, CMP #### [facility] ([id number]) [address] [place] [address] GFR/1.73 sq M.predicted among non-blacks MDRD (S/P/Bld) [Vol rate/Area] 60 mL/min/{1.73_m2} Normal >59 Pr [facility] Comment on above: Result Comment: Reported eGFR is based on the CKD-EPI 2020 equation that does not use a race coefficient. Performed By: #### P INR, 42458-5 #### [facility] ([id number]) [address] [place] [address] 86895 #### CBCA, CMP #### [facility] ([id number]) [address] [facility] [place] [address] Glucose [Mass/Vol] 115 mg/dL High 65-99 [facility] Comment on above: Performed By: #### P INR, 07686-0 #### [facility] ([id number]) [address] [place] [address] 39563 #### CBCA, CMP #### [facility] ([id number]) [address] [facility], [address] [place] [address] Potassium [Moles/Vol] 4.0 mmol/L Normal 3.5-5.0 [facility] Comment on above: Performed By: #### P INR, 15306-0 #### [facility] ([id number]) [address] [place] [address] 98824 #### CBCA, CMP #### [facility] ([id number]) [address] [facility], [address] [place] [address] Protein [Mass/Vol] 6.5 g/dL Normal 6.0-8.0 [facility] Comment on above: Performed By: #### P INR, 12730-1 #### [facility] ([id number]) [address] [place] [address] 33024 #### CBCA, CMP #### [facility] ([id number]) [address], [address] [place] [address] Sodium [Moles/Vol] 138 mmol/L Normal 134-146 [facility] Comment on above: Performed By: #### P INR, 33557-5 #### [facility] ([id number]) [address] [facility] [facility], [place] [address] #### CBCA, CMP #### [facility] ([id number]) [address], [address] [place] [address] Urea nitrogen [Mass/Vol] 19 mg/dL Normal 5-27 [facility] Comment on above: Performed By: #### P INR, 33311-3 #### [facility] ([id number]) [address] [facility] [facility], [place] [address] #### CBCA, CMP #### [facility] ([id number]) [address], [address] [place] [address] CT ABDOMEN AND PELVIS W CONT on 07-05-2024 CT ABDOMEN AND PELVIS W CONT CT ABDOMEN AND PELVIS W CONT STUDY: CT ABDOMEN AND PELVIS W CONT INDICATION: Abdominal pain, acute, nonlocalized. TECHNIQUE: * CT abdomen and pelvis was performed after the administration of intravenous contrast. Coronal and sagittal reformatted images were generated and reviewed. Automated exposure control was utilized. * All CT scans at this facility use dose modulation, iterative reconstruction, and/or weight based dosing when appropriate to reduce radiation dose to as low as reasonably achievable. FINDINGS: Comparison is made to 06/28/2024. Small left pleural effusion with adjacent atelectasis, new from prior. Coronary artery atherosclerosis. No significant intraperitoneal free air by technique. Moderate plaque in the SMA origin, bilateral renal artery origins. 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 Nonaneurysmal changes within the abdominal aorta. The distal left renal vein is difficult to assess due to motion artifact and adjacent stranding. Portal and splenic vein are patent. Liver, gallbladder, pancreas and adrenal glands are unremarkable. Subcentimeter hypodensity in the left superior splenic dome, nonspecific, unchanged. 3.5 cm indeterminate right renal lesion, hyperdense fluid attenuation (2, #46) no obstructive uropathy on the right. Left double-J ureteral stent. Significant possibly subcapsular hemorrhage in the left kidney measuring up to 14.0 x 9.4 x 13.9 cm previously measuring up to 13.5 x 7.1 x 12.2 cm. Curvilinear hyperdensity is noted within this region not excluding hyperacute blood products (series 602, image [id number]). Significant mass effect and compression is again on the renal parenchyma. Interval enlargement of a retroperitoneal hematoma on the medial aspect of the left kidney, measuring up to 10.6 x 2.6 x 9.7 cm (previously measuring 7.2 x 2.1 x 7.3 cm). This causes some degree of mass effect on the iliopsoas muscle. Multiple calcific densities within the left renal pelvis, unchanged. There is severe dilation of the left ureter, similar to prior. Additional calcified debris or layering contrast within the dependent portion of the dilated ureter. Small right diverticulum. No significant bladder stones. Nonenlarged, partially calcified prostate. Fat-containing left inguinal hernia. Mild colonic stool burden. Terminal ileum and appendix appear unremarkable. There is gaseous distention of multiple loops of small and large bowel. 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 No acute osseous abnormality. Degenerative thoracic and lumbar spondylosis. IMPRESSION: * Slight interval enlargement of a large left renal subcapsular hematoma which may contribute to page kidney phenomenon. Concern for persistent superimposed mild active extravasation. * Enlarging left retroperitoneal hematoma along the medial aspect of the left kidney causing mass effect on the left iliopsoas muscle. * Left-sided double-J ureteral stent within the persistently significantly distended left ureter. There is slight increase in degree of calcification within this distal aorta. * Small left pleural effusion with adjacent atelectasis. * Gaseous distention of multiple loops of small and large bowel without obvious obstruction. Correlate with ileus or incomplete obstruction. * Indeterminate right renal lesion. Nonemergent MRI is recommended to exclude underlying neoplastic process. THIS REPORT CONTAINS A SIGNIFICANT RESULT AND/OR RECOMMENDATION, WHICH REQUIRES THE ATTENTION OF THE LICENSED CAREGIVER RESPONSIBLE FOR THIS PATIENT. THEREFORE, I SPECIFICALLY DESIGNATED THIS REPORT TO BE TELEPHONED BY THE RADIOLOGY DEPARTMENT. FINDINGS WERE INSTRUCTED TO BE CALLED TO THE CLINICAL SERVICE ON 07/05/2024 6:59 PM 9 Finalized by Ashley Joyce on 07/05/2024 7:01 PM Normal [facility] Lactate (P rosanne) [Moles/Vol]o n 07-05-2024 LACTATE W/REFLEX 1.5 mmol/L Normal 0.4-2.0 [facility] Comment on above: Result Comment: Result did not trigger repeat Lactate, re-order if needed. Performed By: #### P INR, 54619-9 #### [facility] ([id number]) [address] [place] [address] 94270 #### CBCA, CMP #### [facility] ([id number]) [address] [place] [address] PROTIME AND INRon 07-05-2024 INR Coag (PPP) [Relative time] 1.9 {INR} High 0.8-1.1 [facility] Comment on above: Performed By: #### P INR, 47833-6 #### [facility] ([id number]) [address] [place] [address] #### CBCA, CMP #### [facility] ([id number]) [address], [address] [place] [address] PT Coag (PPP) [Time] 21.4 s High 9.8-13.2 [facility] Comment on above: Result Comment: NEW REFERENCE RANGE Performed By: #### P INR, 50647-9 #### [facility] ([id number]) [address] [place] [address] #### CBCA, CMP #### [facility] ([id number]) [address], [address] [place] [address] UA (MICROSCOPIC)on 5 R.B.CELLS >100 High 0-5 [facility] Comment on above: Performed By: #### P INR, 77841-9 #### [facility] ([id number]) [address] [place] [address] #### CBCA, CMP #### [facility] ([id number]) [address], [address] [place] [address] SQUAMOUS EPITHELIUM 2 /hpf Normal 0-5 [facility] Comment on above: Performed By: #### P INR, 70344-5 #### [facility] ([id number]) [address] [place] [address] #### CBCA, CMP #### [facility] ([id number]) [address], [address] [place] [address] Urinalysis dipstick W Reflex Microscopic panel (U) Results maybe affected due to High RBC count, interpretwith caution. Normal [facility] Comment on above: Performed By: #### P INR, 28350-3 #### [facility] ([id number]) [address] [place] [address] 44[address] #### CBCA, CMP #### [facility] ([id number]) [address], [address] [place] [address] W.B.CELLS 3 /hpf Normal 0-5 [facility] Comment on above: Performed By: #### P INR, 00284-2 #### [facility] ([id number]) [address] [place] [address] #### CBCA, CMP #### [facility] ([id number]) [address], [address] [place] [address] BASIC METABOLIC PANLon 07-04 Anion gap [Moles/Vol] 6 mmol/L Normal 5-15 [facility] Comment on above: Performed By: #### C BCA, 5643-2, 1798-8, CMP, 3040-3, 96147-8, PINR, 55097-7 #### [facility] ([id number]) [address], [address] [place] [address] Calcium [Mass/Vol] 8.4 mg/dL Low 8.5-10.5 [facility] Comment on above: Performed By: #### C BCA, 5643-2, 1797-8, CMP, 3040-3, 07510-1, PINR, 26060-0 #### [facility] ([id number]) [address], [address] [place] [address] Chloride [Moles/Vol] 107 mmol/L Normal 98-109 [facility] Comment on above: Performed By: #### C BCA, 5643-2, 1797-8, CMP, 3040-3, 49674-0, PINR, 45725-8 #### [facility] ([id number]) [address], [address] [place] [address] CO2 [Moles/Vol] 29 mmol/L Normal 22-32 [facility] Comment on above: Performed By: #### C BCA, 5643-2, 8, CMP, 3040-3, 08781-5, PINR, 24027-0 #### [facility] ([id number]) [address], [address] [place] [address] Creatinine [Mass/Vol] 1.06 mg/dL Normal 0.60-1.30 [facility] Comment on above: Result Comment: METH OD TRACEABLE TO IDMS STANDARD Performed By: #### C BCA, 5643-2, 1797-8, CMP, 3040-3, 90587-7, PINR, 65025-9 #### [facility] ([id number]) [address], [address] [place] [address] GFR/1.73 sq M.predicted among non-blacks MDRD (S/P/Bld) [Vol rate/Area] 72 mL/min/{1.73_m2} Normal >59 [facility] Comment on above: Result Comment: Reported eGFR is based on the CKD-EPI 2020 equation that does not use a race coefficient. Performed By: #### C BCA, 5643-2, 1797-8, CMP, 3040-3, 52186-6, PINR, 08480-8 #### [facility] ([id number]) [address], [address] [place] [address] Glucose [Mass/Vol] 93 mg/dL Normal 65-99 [facility] Comment on above: Performed By: #### C BCA, 5643-2, 1797-8, CMP, 3040-3, 74050-3, PINR, 54055-9 #### [facility] ([id number]) [address], [address] [place] [address] Potassium [Moles/Vol] 4.0 mmol/L Normal 3.5-5.0 [facility] Comment on above: Performed By: #### C BCA, 5643-2, 1797-8, CMP, 3040-3, 39857-9, PINR, 61170-5 #### [facility] ([id number]) [address], [address] [place] [address] Sodium [Moles/Vol] 142 mmol/L Normal 134-146 [facility] Comment on above: Performed By: #### C BCA, 5643-2, 1797-8, CMP, 3040-3, 46420-1, PINR, 11090-3 #### [facility] ([id number]) [address], [address] [place] [address] Urea nitrogen [Mass/Vol] 17 mg/dL Normal 5-27 [facility] Comment on above: Performed By: #### C BCA, 5643-2, 1797-8, CMP, 3040-3, 35416-8, PINR, 80505-8 #### [facility] ([id number]) [address] [facility], [address] [place] [address] Basic Metabolic Panelon 06-16 Anion gap [Moles/Vol] 6 mmol/L 5 - 15 mmol/L [facility] Calcium [Mass/Vol] 8.4 mg/dL Low 8.5 - 10. 5 mg/dL [facility] Chloride [Moles/Vol] 107 mmol/L 98 - 10 9 mmol/L [facility] CO2 [Moles/Vol] 29 mmol/L 22 - 32 mmol/L [facility] Creatinine [Mass/Vol] 1.06 mg/dL 0.60 - 1.30 mg/dL [facility] Comment on above: METHOD TRACEABLE TO [facility] STANDARD eGFR (CKD-EPI)non-race dependent 72 - PINF [facility] Comment on above: Reported eGFR is based on the CKD-EPI 2020 equation that does not use a race coefficient. Glucose [Mass/Vol] 93 mg/dL 65 - 99 mg/dL [facility] Interpretation and review of laboratory results Abnormal [facility] Potassium [Moles/Vol] 4 mmol/L 3.5 - 5.0 mmol/L [facility] Sodium [Moles/Vol] 142 mmol/L 134 - 146 mmol/L [facility] Urea nitrogen [Mass/Vol] 17 mg/dL 5 - 27 mg/dL [facility] CBC AND AUTO DIFFon 07-04-19 ABSOLUTE BASOPHIL 0.1 X10E9/L Normal 0.0-0.2 [facility] Comment on above: Performed By: #### C BCA, 5643-2, 1797-8, CMP, 3040-3, 56705-9, PINR, 83488-7 #### [facility] ([id number]) [address] [facility], [address] [place] [address] ABSOLUTE NEUTROPHIL 4.7 X10E9/L Normal 1.5-6.6 [facility] Comment on above: Performed By: #### C BCA, 5643-2, 1798-8, CMP, 3040-3, 22281-2, PINR, 05600-3 #### [place] [facility] ([id number]) [address], [address] [place] [address] Basophils/100 WBC (Bld) 0.8 % Normal [facility] Comment on above: Performed By: #### C BCA, 5643-2, 1797-8, CMP, 3040-3, 03523-5, PINR, 02307-7 #### [facility] ([id number]) [address], [address] [address] Eosinophils (Bld) [#/Vol] 0.1 10*3/uL Normal 0.0-0.4 [facility] Comment on above: Performed By: #### C BCA, 5643-2, 8, CMP, 3040-3, 89027-9, PINR, 09109-0 #### [facility] ([id number]) [address] [address] Eosinophils/100 WBC (Bld) 2.0 % Normal [facility] Comment on above: Performed By: #### C BCA, 5643-2, 1797-12, CMP, 3040-3, 07392-5, PINR, 45572-3 #### [facility] ([id number]) [address] [address] [place] [address] Erythrocyte distribution width (RBC) [Ratio] 15.0 % Normal 11.5-15.0 [facility] Comment on above: Performed By: #### C BCA, 5643-2, 8, CMP, 3040-3, 31517-9, PINR, 87890-3 #### [facility] ([id number]) [address] [place] [address] Hematocrit (Bld) [Volume fraction] 30.5 % Low 39-49 [facility] Comment on above: Performed By: #### C BCA, 5643-2, 1797-8, CMP, 3040-3, 32087-3, PINR, 02126-1 #### [facility] ([id number]) [address], [address] [place] [address] Hemoglobin (Bld) [Mass/Vol] 10.1 g/dL Low 13.0-17.0 [facility] Comment on above: Performed By: #### C BCA, 5643-2, 1797-8, CMP, 3040-3, 30719-1, PINR, 63176-5 #### [facility] ([id number]) [address], [facility] [address] [place] [address] Lymphocytes (Bld) [#/Vol] 0.9 10*3/uL Low 1.0-3.5 [facility] Comment on above: Performed By: #### C BCA, 5643-2, 1797-8, CMP, 3040-3, 84633-0, PINR, 97638-8 #### [facility] ([id number]) [address] [place] [address] Lymphocytes/100 WBC (Bld) 14.6 % Normal [facility] Comment on above: Performed By: #### C BCA, 5643-2, 1797-8, CMP, 3040-3, 23341-6, PINR, 75781-8 #### [facility] ([id number]) [address], [address] [place] [address] MCH (RBC) [Entitic mass] 30.8 pg Normal 27-34 [facility] Comment on above: Performed By: #### C BCA, 5643-2, 1797-8, CMP, 3040-3, 19982-5, PINR, 88184-1 #### [facility] ([id number]) [address] [address] [place] [address] MCHC (RBC) [Mass/Vol] 33.0 g/dL Normal 32-36 [facility] Comment on above: Performed By: #### C BCA, 5643-2, 1797-8, CMP, 3040-3, 20638-0, PINR, 39696-0 #### [facility] ([id number]) [address], [address] [place] [address] MCV (RBC) [Entitic vol] 94 fL Normal 80-100 [facility] Comment on above: Performed By: #### C BCA, 5643-2, 1797-8, CMP, 3040-3, 71001-6, PINR, 32770-8 #### [facility] ([id number]) [address], [address] [place] [address] Monocytes (Bld) [#/Vol] 0.6 10*3/uL Normal 0-0.9 [facility] Comment on above: Performed By: #### C BCA, 5643-2, 1797-8, CMP, 3040-3, 48695-9, PINR, 63770-6 #### [facility] ([id number]) [address], [address] [place] [address] Monocytes/100 WBC (Bld) 9.1 % Normal [facility] Comment on above: Performed By: #### C BCA, 5643-2, 1797-8, CMP, 3040-3, 96952-8, PINR, 06840-3 #### [facility] ([id number]) [address], [address] [place] [address] Neutrophils/100 WBC (Bld) 73.5 % Normal [facility] Comment on above: Performed By: #### C BCA, 5643-2, 1797-8, CMP, 3040-3, 99484-9, PINR, 25355-4 #### [facility] ([id number]) [address], [address] [place] [address] Platelet mean volume (Bld) [Entitic vol] 8.3 fL Normal 7-12 [facility] Comment on above: Performed By: #### C BCA, 5643-2, 8-8, CMP, 3040-3, 65447-4, PINR, 70413-0 #### [facility] ([id number]) [address], [address] [place] [address] Platelets (Bld) [#/Vol] 228 10*3/uL Normal 150-450 [facility] Comment on above: Performed By: #### C BCA, 5643-2, 8-8, CMP, 3040-3, 49174-6, PINR, 68884-0 #### [facility] ([id number]) [address], [address] [place] [address] RBC COUNT 3.26 X10E12/L Low 4.10-5.70 [facility] Comment on above: Performed By: #### C BCA, 5643-2, 1797-8, CMP, 3040-3, 08128-1, PINR, 50606-6 #### [facility] ([id number]) [address], [address] [place] [address] WBC (Bld) [#/Vol] 6.4 10*3/uL Normal 4.0-11.0 [facility] Comment on above: Performed By: #### C BCA, 5643-2, 8-8, CMP, 3040-3, 65945-7, PINR, 62546-8 #### [facility] ([id number]) [address], [address] [place] [address] CBC auto differentialon 06-16 0-2024 Basophils (Bld) [#/Vol] 0.1 10*3/uL [facility] Basophils/100 WBC (Bld) 0.8 % [facility] Eosinophils (Bld) [#/Vol] 0.1 10*3/uL [facility] Eosinophils/100 WBC (Bld) 2 % [facility] Erythrocyte distribution width (RBC) [Ratio] 15 % 11.5 - 15.0 % [facility] Hematocrit (Bld) [Volume fraction] 30.5 % Low 39 - 49 % [facility] Hemoglobin (Bld) [Mass/Vol] 10.1 g/dL Low 13.0 - 17.0 g/dL [facility] Interpretation and review of laboratory results Abnormal [facility] Lymphocytes (Bld) [#/Vol] 0.9 10*3/uL Low [facility] Lymphocytes/100 WBC (Bld) 14.6 % [facility] MCH (RBC) [Entitic mass] 30.8 pg 27 - 34 pg [facility] MCHC (RBC) [Mass/Vol] 33 g/dL 32 - 3 6 g/dL [facility] MCV (RBC) [Entitic vol] 94 fL 80 - 100 fL [facility] Monocytes (Bld) [#/Vol] 0.6 10*3/uL [facility] Monocytes/100 WBC (Bld) 9.1 % P [facility] Neutrophils (Bld) [#/Vol] 4.7 10*3/uL [facility] Neutrophils/100 WBC (Bld) 73.5 % [facility] Platelet mean volume (Bld) [Entitic vol] 8.3 fL 7 - 12 fL [facility] Platelets (Bld) [#/Vol] 228 10*3/uL [facility] RBC (Bld) [#/Vol] 3.26 10*6/uL Low [facility] WBC corrected for nucl RBC Auto (Bld) [#/Vol] 6.4 [facility] Glucose Glucometer (BldC) [M ass/Vol]on 07-04-2024 Glucose [Mass/Vol] 100 mg/dL High 65 - 99 mg/dL [facility] Interpretation and review of laboratory results Abnormal [facility] Glucose [Mass/Vol] 100 mg/dL High 65-99 [facility] Glucose [Mass/Vol] 109 mg/dL High 65 - 99 mg/dL [facility] Interpretation and review of laboratory results Abnormal [facility] Glucose [Mass/Vol] 109 mg/dL High 65-99 [facility] BASIC METABOLIC PANLon 07-03 Anion gap [Moles/Vol] 4 mmol/L Low 5-15 [facility] Comment on above: Performed By: #### C BCA, 5643-2, 1797-8, CMP, 3040-3, 75103-0, PINR, 41917-2 #### [facility] ([id number]) [address], [address] [place] [address] Calcium [Mass/Vol] 8.3 mg/dL Low 8.5-10.5 [facility] Comment on above: Performed By: #### C BCA, 5643-2, 1797-8, CMP, 3040-3, 76366-5, PINR, 17156-7 #### [facility] ([id number]) [address], [address] [place] [address] Chloride [Moles/Vol] 109 mmol/L Normal 98-109 [facility] Comment on above: Performed By: #### C BCA, 5643-2, 1797-8, CMP, 3040-3, 60605-0, PINR, 76126-9 #### [facility] ([id number]) [address] [place] [address] CO2 [Moles/Vol] 30 mmol/L Normal 22-32 [facility] Comment on above: Performed By: #### C BCA, 5643-2, 1797-8, CMP, 3040-3, 29884-1, PINR, 47316-6 #### [facility] ([id number]) [address], [address] [place] [address] Creatinine [Mass/Vol] 1.05 mg/dL Normal 0.60-1.30 [facility] Comment on above: Result Comment: METH OD TRACEABLE TO IDMS STANDARD Performed By: #### C BCA, 5643-2, 1797-8, CMP, 3040-3, 66651-5, PINR, 46239-3 #### [facility] ([id number]) [address], [address] [place] [address] GFR/1.73 sq M.predicted among non-blacks MDRD (S/P/Bld) [Vol rate/Area] 73 mL/min/{1.73_m2} Normal >59 [facility] Comment on above: Result Comment: Reported eGFR is based on the CKD-EPI 2020 equation that does not use a race coefficient. Performed By: #### C BCA, 5643-2, 8-8, CMP, 3040-3, 18948-9, PINR, 19255-1 #### [facility] ([id number]) [address], [address] [place] [address] Glucose [Mass/Vol] 116 mg/dL High 65-99 [facility] Comment on above: Performed By: #### C BCA, 5643-2, 1797-8, CMP, 3040-3, 66015-4, PINR, 17615-8 #### [facility] ([id number]) [address], [address] [place] [address] Potassium [Moles/Vol] 4.2 mmol/L Normal 3.5-5.0 [facility] Comment on above: Performed By: #### C BCA, 5643-2, 1797-8, CMP, 3040-3, 87199-6, PINR, 12320-4 #### [facility] ([id number]) [address], [address] [place] [address] Sodium [Moles/Vol] 143 mmol/L Normal 134-146 [facility] Comment on above: Performed By: #### C BCA, 5643-2, 1797-8, CMP, 3040-3, 97907-2, PINR, 29552-6 #### [facility] ([id number]) [address], [address] [place] [address] Urea nitrogen [Mass/Vol] 14 mg/dL Normal 5-27 [facility] Comment on above: Performed By: #### C BCA, 5643-2, 1797-8, CMP, 3040-3, 37760-2, PINR, 48568-2 #### [facility] ([id number]) [address], [address] [place] [address] Basic Metabolic Panelon 06-15 Anion gap [Moles/Vol] 4 mmol/L Low 5 - 15 mmol/L [facility] Calcium [Mass/Vol] 8.3 mg/dL Low 8.5 - 10. 5 mg/dL [facility] Chloride [Moles/Vol] 109 mmol/L 98 - 10 9 mmol/L [facility] CO2 [Moles/Vol] 30 mmol/L 22 - 32 mmol/L [facility] Creatinine [Mass/Vol] 1.05 mg/dL 0.60 - 1.30 mg/dL [facility] Comment on above: METHOD TRACEABLE TO [facility] STANDARD eGFR (CKD-EPI)non-race dependent 73 - PINF [facility] Comment on above: Reported eGFR is based on the CKD-EPI 2020 equation that does not use a race coefficient. Glucose [Mass/Vol] 116 mg/dL High 65 - 99 mg/dL [facility] Interpretation and review of laboratory results Abnormal [facility] Potassium [Moles/Vol] 4.2 mmol/L 3.5 - 5.0 mmol/L [facility] Sodium [Moles/Vol] 143 mmol/L 134 - 146 mmol/L [facility] Urea nitrogen [Mass/Vol] 14 mg/dL 5 - 27 mg/dL [facility] CBC AND AUTO DIFFon 07-03-19 25 ABSOLUTE BASOPHIL 0.0 X10E9/L Normal 0.0-0.2 [facility] Comment on above: Performed By: #### C BCA, 5643-2, 1797-8, CMP, 3040-3, 84685-8, PINR, 43039-1 #### [facility] ([id number]) [address], [address] [place] [address] ABSOLUTE NEUTROPHIL 5.7 X10E9/L Normal 1.5-6.6 [facility] Comment on above: Performed By: #### C BCA, 5643-2, 1797-8, CMP, 3040-3, 03190-1, PINR, 51315-1 #### [facility] ([id number]) [address], [address] [place] [address] Basophils/100 WBC (Bld) 0.4 % Normal [facility] Comment on above: Performed By: #### C BCA, 5643-2, 1797-8, CMP, 3040-3, 32773-7, PINR, 08507-9 #### [facility] ([id number]) [address] [address] Eosinophils (Bld) [#/Vol] 0.1 10*3/uL Normal 0.0-0.4 [facility] Comment on above: Performed By: #### C BCA, 5643-2, 8, CMP, 3040-3, 92468-2, PINR, 78600-5 #### [facility] ([id number]) [address] [address] Eosinophils/100 WBC (Bld) 1.8 % Normal [facility] Comment on above: Performed By: #### C BCA, 5643-2, 1797-8, CMP, 3040-3, 62498-2, PINR, 40591-0 #### [facility] ([id number]) [address] [address] [place] [address] Erythrocyte distribution width (RBC) [Ratio] 15.0 % Normal 11.5-15.0 [facility] Comment on above: Performed By: #### C BCA, 5643-2, 1797-8, CMP, 3040-3, 59851-4, PINR, 35430-0 #### [facility] ([id number]) [address], [address] [place] [address] Hematocrit (Bld) [Volume fraction] 31.9 % Low 39-49 [facility] Comment on above: Performed By: #### C BCA, 5643-2, 1797-8, CMP, 3040-3, 55215-5, PINR, 35811-5 #### [facility] ([id number]) [address], [facility] [address] [place] [address] Hemoglobin (Bld) [Mass/Vol] 10.6 g/dL Low 13.0-17.0 [facility] Comment on above: Performed By: #### C BCA, 5643-2, 1797-12, CMP, 3040-3, 89740-0, PINR, 13618-9 #### [facility] ([id number]) [address] [address] [place] [address] Lymphocytes (Bld) [#/Vol] 0.6 10*3/uL Low 1.0-3.5 [facility] Comment on above: Performed By: #### C BCA, 5643-2, 8, CMP, 3040-3, 72141-7, PINR, 82081-4 #### [facility] ([id number]) [address] [address] Lymphocytes/100 WBC (Bld) 8.5 % Normal [facility] Comment on above: Performed By: #### C BCA, 5643-2, 1797-12, CMP, 3040-3, 21056-3, PINR, 95589-2 #### [facility] ([id number]) [address] [address] [place] [address] MCH (RBC) [Entitic mass] 31.1 pg Normal 27-34 [facility] Comment on above: Performed By: #### C BCA, 5643-2, 1797-8, CMP, 3040-3, 46257-4, PINR, 14733-4 #### [facility] ([id number]) [address] [place] [address] MCHC (RBC) [Mass/Vol] 33.2 g/dL Normal 32-36 [facility] Comment on above: Performed By: #### C BCA, 5643-2, 1797-8, CMP, 3040-3, 46638-5, PINR, 26082-2 #### [facility] ([id number]) [address] [place] [address] MCV (RBC) [Entitic vol] 94 fL Normal 80-100 [facility] Comment on above: Performed By: #### C BCA, 5643-2, 1797-8, CMP, 3040-3, 22731-0, PINR, 06324-2 #### [facility] ([id number]) [address] [place] [address] Monocytes (Bld) [#/Vol] 0.6 10*3/uL Normal 0-0.9 [facility] Comment on above: Performed By: #### C BCA, 5643-2, 8, CMP, 3040-3, 37666-0, PINR, 45724-8 #### [facility] ([id number]) [address], [address] [place] [address] Monocytes/100 WBC (Bld) 8.1 % Normal P [facility] Comment on above: Performed By: #### C BCA, 5643-2, 1797-8, CMP, 3040-3, 76349-3, PINR, 45063-8 #### [facility] ([id number]) [address], [address] [place] [address] Neutrophils/100 WBC (Bld) 81.2 % Normal [facility] Comment on above: Performed By: #### C BCA, 5643-2, 1797-8, CMP, 3040-3, 08624-4, PINR, 43405-5 #### [facility] ([id number]) [address] [place] [address] Platelet mean volume (Bld) [Entitic vol] 8.4 fL Normal 7-12 [facility] Comment on above: Performed By: #### C BCA, 5643-2, 1797-8, CMP, 3040-3, 56900-0, PINR, 13821-9 #### [facility] ([id number]) [address] [address] Platelets (Bld) [#/Vol] 216 10*3/uL Normal 150-450 [facility] Comment on above: Performed By: #### C BCA, 5643-2, 1797-8, CMP, 3040-3, 49421-9, PINR, 48541-9 #### [facility] ([id number]) [address] [address] RBC COUNT 3.40 X10E12/L Low 4.10-5.70 [facility] Comment on above: Performed By: #### C BCA, 5643-2, 8, CMP, 3040-3, 30582-6, PINR, 72384-1 #### [facility] ([id number]) [address] [place] [address] WBC (Bld) [#/Vol] 7.0 10*3/uL Normal 4.0-11.0 [facility] Comment on above: Performed By: #### C BCA, 5643-2, 1797-8, CMP, 3040-3, 28777-4, PINR, 77989-4 #### [facility] ([id number]) [address] [address] CBC auto differentialon 06-15 Basophils (Bld) [#/Vol] 0 10*3/uL [facility] Basophils/100 WBC (Bld) 0.4 % P [facility] Eosinophils (Bld) [#/Vol] 0.1 10*3/uL [facility] Eosinophils/100 WBC (Bld) 1.8 % [facility] Erythrocyte distribution width (RBC) [Ratio] 15 % 11.5 - 15.0 % [facility] Hematocrit (Bld) [Volume fraction] 31.9 % Low 39 - 49 % [facility] Hemoglobin (Bld) [Mass/Vol] 10.6 g/dL Low 13.0 - 17.0 g/dL [facility] Interpretation and review of laboratory results Abnormal [facility] Lymphocytes (Bld) [#/Vol] 0.6 10*3/uL Low [facility] Lymphocytes/100 WBC (Bld) 8.5 % [facility] MCH (RBC) [Entitic mass] 31.1 pg 27 - 34 pg [facility] MCHC (RBC) [Mass/Vol] 33.2 g/dL 32 - 3 6 g/dL [facility] MCV (RBC) [Entitic vol] 94 fL 80 - 100 fL [facility] Monocytes (Bld) [#/Vol] 0.6 10*3/uL [facility] Monocytes/100 WBC (Bld) 8.1 % [facility] [facility] Neutrophils (Bld) [#/Vol] 5.7 10*3/uL [facility] Neutrophils/100 WBC (Bld) 81.2 % [facility] Platelet mean volume (Bld) [Entitic vol] 8.4 fL 7 - 12 fL [facility] Platelets (Bld) [#/Vol] 216 10*3/uL [facility] RBC (Bld) [#/Vol] 3.4 10*6/uL Low [facility] WBC corrected for nucl RBC Auto (Bld) [#/Vol] 7 [facility] Glucose Glucometer (BldC) [M ass/Vol]on 07-03-2024 Glucose [Mass/Vol] 90 mg/dL 65 - 99 mg/dL [facility] Glucose [Mass/Vol] 90 mg/dL Normal 65-99 [facility] Glucose [Mass/Vol] 101 mg/dL High 65 - 99 mg/dL [facility] Interpretation and review of laboratory results Abnormal [facility] Glucose [Mass/Vol] 101 mg/dL High 65-99 [facility] Glucose [Mass/Vol] 129 mg/dL High 65 - 99 mg/dL [facility] Interpretation and review of laboratory results Abnormal [facility] Glucose [Mass/Vol] 129 mg/dL High 65-99 [facility] Glucose [Mass/Vol] 129 mg/dL High 65 - 99 mg/dL [facility] Interpretation and review of laboratory results Abnormal [facility] Glucose [Mass/Vol] 129 mg/dL High 65-99 [facility] Glucose [Mass/Vol] 116 mg/dL High 65 - 99 mg/dL [facility] Interpretation and review of laboratory results Abnormal [facility] Glucose [Mass/Vol] 116 mg/dL High 65-99 [facility] Glucose [Mass/Vol] 125 mg/dL High 65 - 99 mg/dL [facility] Interpretation and review of laboratory results Abnormal [facility] Glucose [Mass/Vol] 125 mg/dL High 65-99 [facility] 07-03-2024 Hematocrit (Bld) [Volume fraction] 33.4 % Low 39-49 [facility] Comment on above: Performed By: #### C HERNANDEZ, 5643-2, 8-8, CMP, 3040-3, 57287-6, PINR, [id number] #### [facility] ([id number]) [address], [address] [place] [address] Hemoglobin (Bld) [Mass/Vol] 11.0 g/dL Low 13.0-17.0 [facility] Comment on above: Performed By: #### C HERNANDEZ, 5643-2, 1798-8, CMP, 3040-3, 20359-0, PINR, [id number] #### [facility] ([id number]) [address] [place] [address] Hemoglobin and hematocrit, b loodon 07-03-2024 Hemoglobin (Bld) [Mass/Vol] 11 g/dL Low 13.0 - 17.0 g/dL [facility] Interpretation and review of laboratory results Abnormal [facility].doppler Lower extremity v ein - bilateralon 07-03-2024 Right: Lower extremity deep veins are compressible with spontaneous phasic spectral Doppler waveforms; superficial veins are compressible without intraluminal content. Left: Lower extremity deep veins are compressible with spontaneous phasic spectral Doppler waveforms; superficial veins are compressible without intraluminal content. Conclusions: BILATERAL: NO EVIDENCE of deep or superficial vein thrombosis of the lower extremities. Recommendations: Any questions prior to finalization, please call the reading physician during normal business hours at the phone number beside their name. CARDIOVASCULAR Brian Valverde MD - 07/03/2024 Right: Lower extremity deep veins are compressible with spontaneous phasic spectral Doppler waveforms; superficial veins are compressible without intraluminal content. Left: Lower extremity deep veins are compressible with spontaneous phasic spectral Doppler waveforms; superficial veins are compressible without intraluminal content. Conclusions: BILATERAL: NO EVIDENCE of deep or superficial vein thrombosis of the lower extremities. Recommendations: Any questions prior to finalization, please call the reading physician during normal business hours at the phone number beside their name. [facility].doppler Lower extremity v ein - bilateralOrdered By: Brian Valverde on 07-03-2024 [facility] Work Phone: BASIC METABOLIC PANLon 07-02 Anion gap [Moles/Vol] 8 mmol/L Normal 5-15 [facility] Comment on above: Performed By: #### C BCA, 5643-2, 1797-8, CMP, 3040-3, 68960-9, PINR, 80729-6 #### [facility] ([id number]) [address], [address] [place] [address] Calcium [Mass/Vol] 8.2 mg/dL Low 8.5-10.5 [facility] Comment on above: Performed By: #### C BCA, 5643-2, 8-8, CMP, 3040-3, 56798-6, PINR, 94650-2 #### [facility] ([id number]) [address], [address] [place] [address] Chloride [Moles/Vol] 108 mmol/L Normal 98-109 [facility] Comment on above: Performed By: #### C BCA, 5643-2, 8-8, CMP, 3040-3, 54539-0, PINR, 83079-7 #### [facility] ([id number]) [address], [facility] [address] [place] [address] CO2 [Moles/Vol] 26 mmol/L Normal 22-32 [facility] Comment on above: Performed By: #### C BCA, 5643-2, 1797-8, CMP, 3040-3, 61960-8, PINR, 54514-3 #### [facility] ([id number]) [address], [facility] [address] [place] [address] Creatinine [Mass/Vol] 1.15 mg/dL Normal 0.60-1.30 [facility] Comment on above: Result Comment: METH OD TRACEABLE TO IDMS STANDARD Performed By: #### C BCA, 5643-2, 1797-8, CMP, 3040-3, 29730-6, PINR, 24272-1 #### [facility] ([id number]) [address], [address] [address] GFR/1.73 sq M.predicted among non-blacks MDRD (S/P/Bld) [Vol rate/Area] 65 mL/min/{1.73_m2} Normal >59 Pr [facility] Comment on above: Result Comment: Reported eGFR is based on the CKD-EPI 2020 equation that does not use a race coefficient. Performed By: #### C BCA, 5643-2, 8-8, CMP, 3040-3, 58725-9, PINR, 87004-1 #### [facility] ([id number]) [address], [address] [place] [address] Glucose [Mass/Vol] 93 mg/dL Normal 65-99 [facility] Comment on above: Performed By: #### C BCA, 5643-2, 1797-8, CMP, 3040-3, 11089-2, PINR, 20413-8 #### [facility] ([id number]) [address], [address] [place] [address] Potassium [Moles/Vol] 4.1 mmol/L Normal 3.5-5.0 [facility] Comment on above: Performed By: #### C BCA, 5643-2, 1797-8, CMP, 3040-3, 61180-0, PINR, 53089-2 #### [facility] ([id number]) [address], [address] [place] [address] Sodium [Moles/Vol] 142 mmol/L Normal 134-146 [facility] Comment on above: Performed By: #### C BCA, 5643-2, 1797-8, CMP, 3040-3, 30511-1, PINR, 28459-6 #### [facility] ([id number]) [address], [address] [place] [address] Urea nitrogen [Mass/Vol] 13 mg/dL Normal 5-27 [facility] Comment on above: Performed By: #### C BCA, 5643-2, 1797-8, CMP, 3040-3, 86285-2, PINR, 52544-8 #### [facility] ([id number]) [address], [address] [place] [address] Basic Metabolic Panelon 06-15 Anion gap [Moles/Vol] 8 mmol/L 5 - 15 mmol/L [facility] Calcium [Mass/Vol] 8.2 mg/dL Low 8.5 - 10. 5 mg/dL [facility] Chloride [Moles/Vol] 108 mmol/L 98 - 10 9 mmol/L [facility] CO2 [Moles/Vol] 26 mmol/L 22 - 32 mmol/L [facility] Creatinine [Mass/Vol] 1.15 mg/dL 0.60 - 1.30 mg/dL [facility] Comment on above: METHOD TRACEABLE TO IDMN STANDARD eGFR (CKD-EPI)non-race dependent 65 - PINF [facility] Comment on above: Reported eGFR is based on the CKD-EPI 2020 equation that does not use a race coefficient. Glucose [Mass/Vol] 93 mg/dL 65 - 99 mg/dL [facility] Interpretation and review of laboratory results Abnormal [facility] Potassium [Moles/Vol] 4.1 mmol/L 3.5 - 5.0 mmol/L [facility] Sodium [Moles/Vol] 142 mmol/L 134 - 146 mmol/L [facility] Urea nitrogen [Mass/Vol] 13 mg/dL 5 - 27 mg/dL [facility] CBC AND AUTO DIFFon 07-02-19 25 ABSOLUTE BASOPHIL 0.0 X10E9/L Normal 0.0-0.2 [facility] Comment on above: Performed By: #### C BCA, 5643-2, 1798-8, CMP, 3040-3, 84266-0, PINR, 60357-2 #### [facility] ([id number]) [address], [address] [place] [address] ABSOLUTE NEUTROPHIL 6.1 X10E9/L Normal 1.5-6.6 [facility] Comment on above: Performed By: #### C BCA, 5643-2, 8-8, CMP, 3040-3, 10802-5, PINR, 19776-7 #### [facility] ([id number]) [address], [address] [place] [address] Basophils/100 WBC (Bld) 0.3 % Normal [facility] Comment on above: Performed By: #### C BCA, 5643-2, 1798-8, CMP, 3040-3, 27601-0, PINR, 43376-8 #### [facility] ([id number]) [address], [address] [place] [address] Eosinophils (Bld) [#/Vol] 0.1 10*3/uL Normal 0.0-0.4 [facility] Comment on above: Performed By: #### C BCA, 5643-2, 1797-12, CMP, 3040-3, 71871-5, PINR, 15296-4 #### [facility] ([id number]) [address], [facility] [address] [place] [address] Eosinophils/100 WBC (Bld) 1.5 % Normal [facility] Comment on above: Performed By: #### C BCA, 5643-2, 1797-12, CMP, 3040-3, 35342-4, PINR, 17890-0 #### [facility] ([id number]) [address] [address] Erythrocyte distribution width (RBC) [Ratio] 15.5 % High 11.5-15.0 [facility] Comment on above: Performed By: #### C BCA, 5643-2, 1797-12, CMP, 3040-3, 40147-8, PINR, 39157-9 #### [facility] ([id number]) [address] [address] [place] [address] Hematocrit (Bld) [Volume fraction] 31.2 % Low 39-49 [facility] Comment on above: Performed By: #### C BCA, 5643-2, 1797-12, CMP, 3040-3, 99903-1, PINR, 56158-8 #### [facility] ([id number]) [address], [facility] [address] [place] [address] Hemoglobin (Bld) [Mass/Vol] 10.7 g/dL Low 13.0-17.0 [facility] Comment on above: Performed By: #### C BCA, 5643-2, 1798-8, CMP, 3040-3, 62575-2, PINR, 24574-0 #### [facility] ([id number]) [address], [address] [place] [address] Lymphocytes (Bld) [#/Vol] 0.6 10*3/uL Low 1.0-3.5 [facility] Comment on above: Performed By: #### C BCA, 5643-2, 1797-8, CMP, 3040-3, 43049-9, PINR, 87351-2 #### [facility] ([id number]) [address], [address] [place] [address] Lymphocytes/100 WBC (Bld) 8.9 % Normal [facility] Comment on above: Performed By: #### C BCA, 5643-2, 1797-8, CMP, 3040-3, 28897-5, PINR, 35623-5 #### [facility] ([id number]) [address], [address] [place] [address] MCH (RBC) [Entitic mass] 31.8 pg Normal 27-34 [facility] Comment on above: Performed By: #### C BCA, 5643-2, 8, CMP, 3040-3, 96093-1, PINR, 17548-3 #### [facility] ([id number]) [address], [address] [place] [address] MCHC (RBC) [Mass/Vol] 34.3 g/dL Normal 32-36 [facility] Comment on above: Performed By: #### C BCA, 5643-2, 1797-8, CMP, 3040-3, 63905-4, PINR, 45838-2 #### [facility] ([id number]) [address], [address] [place] [address] MCV (RBC) [Entitic vol] 93 fL Normal 80-100 [facility] Comment on above: Performed By: #### C BCA, 5643-2, 8-8, CMP, 3040-3, 48024-1, PINR, 27856-0 #### [facility] ([id number]) [address], [address] [place] [address] Monocytes (Bld) [#/Vol] 0.4 10*3/uL Normal 0-0.9 [facility] Comment on above: Performed By: #### C BCA, 5643-2, 8-8, CMP, 3040-3, 64672-1, PINR, 17168-3 #### [facility] ([id number]) [address], [facility] [address] [place] [address] Monocytes/100 WBC (Bld) 5.9 % Normal [facility] Comment on above: Performed By: #### C BCA, 5643-2, 1797-8, CMP, 3040-3, 28615-6, PINR, 94561-8 #### [facility] ([id number]) [address], [facility] [address] [place] [address] Neutrophils/100 WBC (Bld) 83.4 % Normal [facility] Comment on above: Performed By: #### C BCA, 5643-2, 1797-8, CMP, 3040-3, 12556-4, PINR, 56519-5 #### [facility] ([id number]) [address], [address] [place] [address] Platelet mean volume (Bld) [Entitic vol] 8.5 fL Normal 7-12 [facility] Comment on above: Performed By: #### C BCA, 5643-2, 1797-8, CMP, 3040-3, 20635-5, PINR, 52254-7 #### [facility] ([id number]) [address], [address] [place] [address] Platelets (Bld) [#/Vol] 228 10*3/uL Normal 150-450 [facility] Comment on above: Performed By: #### C BCA, 5643-2, 8-8, CMP, 3040-3, 48663-8, PINR, 63799-2 #### [facility] ([id number]) [address], [address] [place] [address] RBC COUNT 3.36 X10E12/L Low 4.10-5.70 [facility] Comment on above: Performed By: #### C BCA, 5643-2, 8-8, CMP, 3040-3, 20169-7, PINR, 37701-2 #### [facility] ([id number]) [address], [address] [place] [address] WBC (Bld) [#/Vol] 7.3 10*3/uL Normal 4.0-11.0 [facility] Comment on above: Performed By: #### C BCA, 5643-2, 1797-8, CMP, 3040-3, 40258-0, PINR, 57634-2 #### [facility] ([id number]) [address], [address] [place] [address] CBC auto differentialon 06-15 Basophils (Bld) [#/Vol] 0 10*3/uL [facility] Basophils/100 WBC (Bld) 0.3 % P [facility] Eosinophils (Bld) [#/Vol] 0.1 10*3/uL [facility] Eosinophils/100 WBC (Bld) 1.5 % [facility] Erythrocyte distribution width (RBC) [Ratio] 15.5 % High 11.5 - 15.0 % [facility] Hematocrit (Bld) [Volume fraction] 31.2 % Low 39 - 49 % [facility] Hemoglobin (Bld) [Mass/Vol] 10.7 g/dL Low 13.0 - 17.0 g/dL [facility] Interpretation and review of laboratory results Abnormal [facility] Lymphocytes (Bld) [#/Vol] 0.6 10*3/uL Low [facility] Lymphocytes/100 WBC (Bld) 8.9 % [facility] MCH (RBC) [Entitic mass] 31.8 pg 27 - 34 pg [facility] MCHC (RBC) [Mass/Vol] 34.3 g/dL 32 - 3 6 g/dL [facility] MCV (RBC) [Entitic vol] 93 fL 80 - 100 fL [facility] Monocytes (Bld) [#/Vol] 0.4 10*3/uL [facility] Monocytes/100 WBC (Bld) 5.9 % P [facility] Neutrophils (Bld) [#/Vol] 6.1 10*3/uL [facility] Neutrophils/100 WBC (Bld) 83.4 % [facility] Platelet mean volume (Bld) [Entitic vol] 8.5 fL 7 - 12 fL [facility] Platelets (Bld) [#/Vol] 228 10*3/uL [facility] RBC (Bld) [#/Vol] 3.36 10*6/uL Low [facility] WBC corrected for nucl RBC Auto (Bld) [#/Vol] 7.3 [facility] Glucose Glucometer (dC) [M ass/Vol]on 07-02-2024 Glucose [Mass/Vol] 103 mg/dL High 65 - 99 mg/dL [facility] Interpretation and review of laboratory results Abnormal [facility] Glucose [Mass/Vol] 103 mg/dL High 65-99 [facility] Glucose [Mass/Vol] 144 mg/dL High 65 - 99 mg/dL [facility] Interpretation and review of laboratory results Abnormal [facility] Glucose [Mass/Vol] 144 mg/dL High 65-99 [facility] Glucose [Mass/Vol] 158 mg/dL High 65 - 99 mg/dL [facility] Interpretation and review of laboratory results Abnormal [facility] Glucose [Mass/Vol] 158 mg/dL High 65-99 [facility] Glucose [Mass/Vol] 87 mg/dL 65 - 99 mg/dL [facility] Glucose [Mass/Vol] 87 mg/dL Normal 65-99 [facility] Glucose [Mass/Vol] 90 mg/dL 65 - 99 mg/dL [facility] Glucose [Mass/Vol] 90 mg/dL Normal 65-99 [facility] HGBon 07-02-2024 Hematocrit (Bld) [Volume fraction] 34.3 % Low 39-49 [facility] Comment on above: Performed By: #### C BCA, 5643-2, 1797-8, CMP, 3040-3, 89537-6, PINR, 07193-1 #### [facility] ([id number]) [address], [address] [place] [address] Hemoglobin (Bld) [Mass/Vol] 11.4 g/dL Low 13.0-17.0 [facility] Comment on above: Performed By: #### C BCA, 5643-2, 1797-8, CMP, 3040-3, 75699-0, PINR, 65907-5 #### [facility] ([id number]) [address] [place] [address] Hemoglobin and hematocrit, b loodon 07-02-2024 Hematocrit (Bld) [Volume fraction] 34.3 % Low 39 - 49 % [facility] Hemoglobin (Bld) [Mass/Vol] 11.4 g/dL Low 13.0 - 17.0 g/dL [facility] Interpretation and review of laboratory results Abnormal [facility] US.doppler Lower extremity v ein - bilateralon 07-02-2024 Radiology Study observation (narrative) [facility] BASIC METABOLIC PANLon 07-01 Anion gap [Moles/Vol] 5 mmol/L Normal 5-15 [facility] Comment on above: Performed By: #### C BCA, 5643-2, 8-8, CMP, 3040-3, 61075-9, PINR, 34878-4 #### [facility] ([id number]) [address], [address] [place] [address] Calcium [Mass/Vol] 7.9 mg/dL Low 8.5-10.5 [facility] Comment on above: Performed By: #### C BCA, 5643-2, 8-8, CMP, 3040-3, 96042-0, PINR, 31015-6 #### [facility] ([id number]) [address], [address] [address] Chloride [Moles/Vol] 111 mmol/L High 98-109 [facility] Comment on above: Performed By: #### C BCA, 5643-2, 1797-8, CMP, 3040-3, 16404-7, PINR, 87332-0 #### [facility] ([id number]) [address], [address] [address] CO2 [Moles/Vol] 25 mmol/L Normal 22-32 [facility] Comment on above: Performed By: #### C BCA, 5643-2, 1797-8, CMP, 3040-3, 59796-1, PINR, 29821-2 #### [facility] ([id number]) [address], [address] [address] Creatinine [Mass/Vol] 1.24 mg/dL Normal 0.60-1.30 [facility] Comment on above: Result Comment: METH OD TRACEABLE TO IDMS STANDARD Performed By: #### C BCA, 5643-2, 1797-8, CMP, 3040-3, 76384-9, PINR, 31152-4 #### [facility] ([id number]) [address] [address] GFR/1.73 sq M.predicted among non-blacks MDRD (S/P/Bld) [Vol rate/Area] 60 mL/min/{1.73_m2} Normal >59 Pr [facility] Comment on above: Result Comment: Reported eGFR is based on the CKD-EPI 2020 equation that does not use a race coefficient. Performed By: #### C BCA, 5643-2, 8-8, CMP, 3040-3, 09838-9, PINR, 19262-9 #### [facility] ([id number]) [address], [address] [place] [address] Glucose [Mass/Vol] 103 mg/dL High 65-99 [facility] Comment on above: Performed By: #### C BCA, 5643-2, 1797-8, CMP, 3040-3, 12053-8, PINR, 81861-6 #### [facility] ([id number]) [address], [address] [place] [address] Potassium [Moles/Vol] 3.7 mmol/L Normal 3.5-5.0 [facility] Comment on above: Performed By: #### C BCA, 5643-2, 1797-8, CMP, 3040-3, 68979-6, PINR, 15551-8 #### [facility] ([id number]) [address], [address] [place] [address] Sodium [Moles/Vol] 141 mmol/L Normal 134-146 [facility] Comment on above: Performed By: #### C BCA, 5643-2, 1797-8, CMP, 3040-3, 71588-4, PINR, 28769-2 #### [facility] ([id number]) [address], [address] [place] [address] Urea nitrogen [Mass/Vol] 16 mg/dL Normal 5-27 [facility] Comment on above: Performed By: #### C BCA, 5643-2, 1797-8, CMP, 3040-3, 16108-1, PINR, 06335-5 #### [facility] ([id number]) [address], [address] [place] [address] Basic Metabolic Panelon 02- Anion gap [Moles/Vol] 5 mmol/L 5 - 15 mmol/L [facility] Calcium [Mass/Vol] 7.9 mg/dL Low 8.5 - 10. 5 mg/dL [facility] Chloride [Moles/Vol] 111 mmol/L High 98 - 10 9 mmol/L [facility] CO2 [Moles/Vol] 25 mmol/L 22 - 32 mmol/L [facility] Creatinine [Mass/Vol] 1.24 mg/dL 0.60 - 1.30 mg/dL [facility] Comment on above: METHOD TRACEABLE TO [facility] STANDARD eGFR (CKD-EPI)non-race dependent 60 - PINF [facility] Comment on above: Reported eGFR is based on the CKD-EPI 2020 equation that does not use a race coefficient. Glucose [Mass/Vol] 103 mg/dL High 65 - 99 mg/dL [facility] Interpretation and review of laboratory results Abnormal [facility] Potassium [Moles/Vol] 3.7 mmol/L 3.5 - 5.0 mmol/L [facility] Sodium [Moles/Vol] 141 mmol/L 134 - 146 mmol/L [facility] Urea nitrogen [Mass/Vol] 16 mg/dL 5 - 27 mg/dL [facility] CBC AND AUTO DIFFon 07-01-19 25 ABSOLUTE BASOPHIL 0.0 X10E9/L Normal 0.0-0.2 [facility] Comment on above: Performed By: #### C BCA, 5643-2, 1797-8, CMP, 3040-3, 21082-2, PINR, 45263-4 #### [facility] ([id number]) [address], [address] [place] [address] ABSOLUTE NEUTROPHIL 8.1 X10E9/L High 1.5-6.6 [facility] Comment on above: Performed By: #### C BCA, 5643-2, 1797-8, CMP, 3040-3, 17169-7, PINR, 81716-9 #### [facility] ([id number]) [address], [address] [place] [address] Basophils/100 WBC (Bld) 0.4 % Normal [facility] Comment on above: Performed By: #### C BCA, 5643-2, 1797-8, CMP, 3040-3, 32247-8, PINR, 39195-9 #### [facility] ([id number]) [address], [address] [place] [address] Eosinophils (Bld) [#/Vol] 0.1 10*3/uL Normal 0.0-0.4 [facility] Comment on above: Performed By: #### C BCA, 5643-2, 1797-8, CMP, 3040-3, 77802-6, PINR, 87913-6 #### [facility] ([id number]) [address], [address] [place] [address] Eosinophils/100 WBC (Bld) 1.5 % Normal [facility] Comment on above: Performed By: #### C BCA, 5643-2, 8, CMP, 3040-3, 12430-3, PINR, 85380-1 #### [facility] ([id number]) [address], [address] [place] [address] Erythrocyte distribution width (RBC) [Ratio] 15.7 % High 11.5-15.0 [facility] Comment on above: Performed By: #### C BCA, 5643-2, 1797-8, CMP, 3040-3, 35577-7, PINR, 83497-8 #### [facility] ([id number]) [address], [address] [place] [address] Hematocrit (Bld) [Volume fraction] 29.9 % Low 39-49 [facility] Comment on above: Performed By: #### C BCA, 5643-2, 1797-8, CMP, 3040-3, 20834-6, PINR, 42097-2 #### [facility] ([id number]) [address], [address] [place] [address] Hemoglobin (Bld) [Mass/Vol] 10.2 g/dL Low 13.0-17.0 [facility] Comment on above: Performed By: #### C BCA, 5643-2, 1797-8, CMP, 3040-3, 76224-3, PINR, 37621-5 #### [facility] ([id number]) [address], [address] [place] [address] Lymphocytes (Bld) [#/Vol] 0.7 10*3/uL Low 1.0-3.5 [facility] Comment on above: Performed By: #### C BCA, 5643-2, 1797-8, CMP, 3040-3, 34805-8, PINR, 18341-9 #### [facility] ([id number]) [address], [address] [place] [address] Lymphocytes/100 WBC (Bld) 6.8 % Normal [facility] Comment on above: Performed By: #### C BCA, 5643-2, 8, CMP, 3040-3, 24238-9, PINR, 23774-0 #### [facility] ([id number]) [address], [address] [place] [address] MCH (RBC) [Entitic mass] 31.3 pg Normal 27-34 [facility] Comment on above: Performed By: #### C BCA, 5643-2, 8, CMP, 3040-3, 81114-6, PINR, 80582-2 #### [facility] ([id number]) [address], [address] [place] [address] MCHC (RBC) [Mass/Vol] 34.2 g/dL Normal 32-36 [facility] Comment on above: Performed By: #### C BCA, 5643-2, 1797-8, CMP, 3040-3, 28429-0, PINR, 95931-8 #### [facility] ([id number]) [address], [address] [place] [address] MCV (RBC) [Entitic vol] 92 fL Normal 80-100 [facility] Comment on above: Performed By: #### C BCA, 5643-2, 1797-8, CMP, 3040-3, 82009-5, PINR, [id number] #### [facility] ([id number]) [address], [address] [place] [address] Monocytes (Bld) [#/Vol] 0.6 10*3/uL Normal 0-0.9 [facility] Comment on above: Performed By: #### C BCA, 5643-2, 1797-8, CMP, 3040-3, 84248-9, PINR, 18020-0 #### [facility] ([id number]) [address], [address] [place] [address] Monocytes/100 WBC (Bld) 6.3 % Normal [facility] Comment on above: Performed By: #### C BCA, 5643-2, 8, CMP, 3040-3, 58953-8, PINR, 15998-3 #### [facility] ([id number]) [address], [facility] [address] [place] [address] Neutrophils/100 WBC (Bld) 85.0 % Normal [facility] Comment on above: Performed By: #### C BCA, 5643-2, 1797-8, CMP, 3040-3, 69414-4, PINR, 37483-1 #### [facility] ([id number]) [address], [address] [place] [address] Platelet mean volume (Bld) [Entitic vol] 8.6 fL Normal 7-12 [facility] Comment on above: Performed By: #### C BCA, 5643-2, 1797-8, CMP, 3040-3, 79911-6, PINR, 29397-3 #### [facility] ([id number]) [address], [address] [place] [address] Platelets (Bld) [#/Vol] 235 10*3/uL Normal 150-450 [facility] Comment on above: Performed By: #### C BCA, 5643-2, 1797-8, CMP, 3040-3, 33820-7, PINR, 17810-2 #### [facility] ([id number]) [address], [address] [address] RBC COUNT 3.27 X10E12/L Low 4.10-5.70 [facility] Comment on above: Performed By: #### C BCA, 5643-2, 1797-8, CMP, 3040-3, 84104-5, PINR, 28969-5 #### [facility] ([id number]) [address], [address] [address] WBC (Bld) [#/Vol] 9.5 10*3/uL Normal 4.0-11.0 [facility] Comment on above: Performed By: #### C BCA, 5643-2, 1797-8, CMP, 3040-3, 01503-5, PINR, 46892-2 #### [facility] ([id number]) [address], [address] [address] CBC auto differentialon 06-15 Basophils (Bld) [#/Vol] 0 10*3/uL [facility] Basophils/100 WBC (Bld) 0.4 % P [facility] Eosinophils (Bld) [#/Vol] 0.1 10*3/uL [facility] Eosinophils/100 WBC (Bld) 1.5 % [facility] Erythrocyte distribution width (RBC) [Ratio] 15.7 % High 11.5 - 15.0 % [facility] Hematocrit (Bld) [Volume fraction] 29.9 % Low 39 - 49 % [facility] Hemoglobin (Bld) [Mass/Vol] 10.2 g/dL Low 13.0 - 17.0 g/dL [facility] Interpretation and review of laboratory results Abnormal [facility] Lymphocytes (Bld) [#/Vol] 0.7 10*3/uL Low [facility] Lymphocytes/100 WBC (Bld) 6.8 % [facility] MCH (RBC) [Entitic mass] 31.3 pg 27 - 34 pg [facility] MCHC (RBC) [Mass/Vol] 34.2 g/dL 32 - 3 6 g/dL [facility] MCV (RBC) [Entitic vol] 92 fL 80 - 100 fL [facility] Monocytes (Bld) [#/Vol] 0.6 10*3/uL [facility] Monocytes/100 WBC (Bld) 6.3 % P [facility] Neutrophils (Bld) [#/Vol] 8.1 10*3/uL High [facility] Neutrophils/100 WBC (Bld) 85 % [facility] Platelet mean volume (Bld) [Entitic vol] 8.6 fL 7 - 12 fL [facility] Platelets (Bld) [#/Vol] 235 10*3/uL [facility] RBC (Bld) [#/Vol] 3.27 10*6/uL Low [facility] WBC corrected for nucl RBC Auto (Bld) [#/Vol] 9.5 [facility] Calcium.ionized (Bld) [Mass/ Vol]on 07-01-2024 IONIZED CALCIUM 4.8 mg/dL Normal 4.5-5.3 [facility] Comment on above: Performed By: #### C BCA, 5643-2, 1798-8, CMP, 3040-3, 46183-6, PINR, 17340-3 #### [facility] ([id number]) [address], [address] [place] [address] Glucose Glucometer (BldC) [M ass/Vol]on 07-01-2024 Glucose [Mass/Vol] 106 mg/dL High 65 - 99 mg/dL [facility] Interpretation and review of laboratory results Abnormal [facility] Glucose [Mass/Vol] 106 mg/dL High 65-99 [facility] Glucose [Mass/Vol] 133 mg/dL High 65 - 99 mg/dL [facility] Interpretation and review of laboratory results Abnormal [facility] Glucose [Mass/Vol] 133 mg/dL High 65-99 [facility] Glucose [Mass/Vol] 96 mg/dL 65 - 99 mg/dL [facility] Glucose [Mass/Vol] 96 mg/dL Normal 65-99 [facility] Glucose [Mass/Vol] 118 mg/dL High 65 - 99 mg/dL [facility] Interpretation and review of laboratory results Abnormal [facility] Glucose [Mass/Vol] 118 mg/dL High 65-99 [facility] Glucose [Mass/Vol] 92 mg/dL 65 - 99 mg/dL [facility] Glucose [Mass/Vol] 92 mg/dL Normal 65-99 [facility] Glucose [Mass/Vol] 90 mg/dL 65 - 99 mg/dL [facility] Glucose [Mass/Vol] 90 mg/dL Normal 65-99 [facility] HGBon 07-01-2024 Hematocrit (Bld) [Volume fraction] 31.8 % Low 39-49 [facility] Comment on above: Performed By: #### C HERNANDEZ, 5643-2, 1798-8, CMP, 3040-3, 40947-5, PINR, 54486-2 #### [facility] ([id number]) [address], [address] [place] [address] Hemoglobin (Bld) [Mass/Vol] 10.6 g/dL Low 13.0-17.0 [facility] Comment on above: Performed By: #### C HERNANDEZ, 5643-2, 1798-8, CMP, 3040-3, 47483-9, PINR, 98272-8 #### [facility] ([id number]) [address] [place] [address] Hemoglobin and hematocrit, b loodon 07-01-2024 Hematocrit (Bld) [Volume fraction] 31.8 % Low 39 - 49 % [facility] Hemoglobin (Bld) [Mass/Vol] 10.6 g/dL Low 13.0 - 17.0 g/dL [facility] Interpretation and review of laboratory results Abnormal [facility] Ionized calciumon 07-01-2024 Calcium.ionized (Bld) [Mass/Vol] 4.8 mg/dL 4.5 - 5.3 mg/dL [facility] Ionized magnesiumon 07-01-19 25 Magnesium Ionized ISE (Bld) [Moles/Vol] 0.55 mmol/L 0.45 - 0.74 mmol/L [facility] Comment on above: NEW REFERENCE RANGE Magnesium Ionized ISE (Bld) [Moles/Vol]on 07-01-2024 Magnesium [Moles/Vol] 0.55 mmol/L Normal 0.45-0.74 [facility] Comment on above: Result Comment: NEW REFERENCE RANGE Performed By: #### C BCA, 5643-2, 1797-8, CMP, 3040-3, 77682-9, PINR, 46346-5 #### [facility] ([id number]) [address] [place] [address], [address] [place] [address] No Panel Informationon 07-01 [facility] PHOSPHORUSon 07-01-2024 Phosphate [Mass/Vol] 2.4 mg/dL Normal 2.4-4.9 [facility] Comment on above: Performed By: #### C BCA, 5643-2, 8, CMP, 3040-3, 74167-3, PINR, 60391-6 #### [facility] ([id number]) [address], [address] [place] [address] POTASSIUMon 07-01-2024 Potassium [Moles/Vol] 4.2 mmol/L Normal 3.5-5.0 [facility] Comment on above: Performed By: #### C BCA, 5643-2, 1798-8, CMP, 3040-3, 55083-6, PINR, 91898-0 #### [facility] ([id number]) [address], [address] [place] [address] Potassium [Moles/Vol] 3.8 mmol/L Normal 3.5-5.0 [facility] Comment on above: Performed By: #### C BCA, 5643-2, 8, CMP, 3040-3, 48237-6, PINR, 74220-8 #### [facility] ([id number]) [address], [address] [place] [address] Phosphoruson 07-01-2024 Phosphate [Mass/Vol] 2.4 mg/dL 2.4 - 4 .9 mg/dL [facility] Potassiumon 07-01-2024 Potassium [Moles/Vol] 4.2 mmol/L 3.5 - 5.0 mmol/L [facility] Potassium [Moles/Vol] 3.8 mmol/L 3.5 - 5.0 mmol/L [facility] Potassium [Moles/Vol]on 06-15 [facility] BASIC METABOLIC PANLon 06-30 Anion gap [Moles/Vol] 8 mmol/L Normal 5-15 [facility] Comment on above: Performed By: #### C BCA, 5643-2, 8, CMP, 3040-3, 57712-7, PINR, 13125-2 #### [facility] ([id number]) [address], [address] [place] [address] Calcium [Mass/Vol] 7.4 mg/dL Low 8.5-10.5 [facility] Comment on above: Performed By: #### C BCA, 5643-2, 1797-8, CMP, 3040-3, 08525-6, PINR, 75586-0 #### [facility] ([id number]) [address], [address] [place] [address] Chloride [Moles/Vol] 112 mmol/L High 98-109 [facility] Comment on above: Performed By: #### C BCA, 5643-2, 1797-8, CMP, 3040-3, 21112-7, PINR, 06237-4 #### [facility] ([id number]) [address], [address] [place] [address] CO2 [Moles/Vol] 22 mmol/L Normal 22-32 [facility] Comment on above: Performed By: #### C BCA, 5643-2, 1797-8, CMP, 3040-3, 51247-5, PINR, 66276-8 #### [facility] ([id number]) [address], [address] [place] [address] Creatinine [Mass/Vol] 1.39 mg/dL High 0.60-1.30 [facility] Comment on above: Result Comment: METH OD TRACEABLE TO IDMS STANDARD Performed By: #### C BCA, 5643-2, 8, CMP, 3040-3, 72742-2, PINR, 96953-9 #### [facility] ([id number]) [address], [address] [place] [address] GFR/1.73 sq M.predicted among non-blacks MDRD (S/P/Bld) [Vol rate/Area] 52 mL/min/{1.73_m2} Low >59 Pr [facility] Comment on above: Result Comment: Reported eGFR is based on the CKD-EPI 2020 equation that does not use a race coefficient. Performed By: #### C BCA, 5643-2, 1797-8, CMP, 3040-3, 66000-5, PINR, 09410-0 #### [facility] ([id number]) [address], [address] [place] [address] Glucose [Mass/Vol] 69 mg/dL Normal 65-99 [facility] Comment on above: Performed By: #### C BCA, 5643-2, 1798-8, CMP, 3040-3, 82598-8, PINR, 93108-2 #### [facility] ([id number]) [address], [address] [place] [address] Potassium [Moles/Vol] 4.2 mmol/L Normal 3.5-5.0 [facility] Comment on above: Performed By: #### C BCA, 5643-2, 1798-8, CMP, 3040-3, 93925-4, PINR, 33690-8 #### [facility] ([id number]) [address], [address] [place] [address] Sodium [Moles/Vol] 142 mmol/L Normal 134-146 [facility] Comment on above: Performed By: #### C BCA, 5643-2, 8-8, CMP, 3040-3, 91724-5, PINR, 95692-7 #### [facility] ([id number]) [address], [address] [place] [address] Urea nitrogen [Mass/Vol] 20 mg/dL Normal 5-27 [facility] Comment on above: Performed By: #### C BCA, 5643-2, 8-8, CMP, 3040-3, 25210-5, PINR, 37836-3 #### [facility] ([id number]) [address], [address] [place] [address] Bacteria identified Cx Nom ( U)on 06-30-2024 Service comment (Unsp spec) [Interp] URINE RECEIVED WITHOUT PRESERVATIVE [facility] Service comment (Unsp spec) [Interp] NO GROWTH AT <1000 CFU/mL [facility] Basic Metabolic Panelon 06-15 Anion gap [Moles/Vol] 8 mmol/L 5 - 15 mmol/L [facility] Calcium [Mass/Vol] 7.4 mg/dL Low 8.5 - 10. 5 mg/dL [facility] Chloride [Moles/Vol] 112 mmol/L High 98 - 10 9 mmol/L [facility] CO2 [Moles/Vol] 22 mmol/L 22 - 32 mmol/L [facility] Creatinine [Mass/Vol] 1.39 mg/dL High 0.60 - 1.30 mg/dL [facility] Comment on above: METHOD TRACEABLE TO IDMN STANDARD eGFR (CKD-EPI)non-race dependent 52 Low - PINF [facility] Comment on above: Reported eGFR is based on the CKD-EPI 2020 equation that does not use a race coefficient. Glucose [Mass/Vol] 69 mg/dL 65 - 99 mg/dL [facility] Interpretation and review of laboratory results Abnormal [facility] Potassium [Moles/Vol] 4.2 mmol/L 3.5 - 5.0 mmol/L [facility] Sodium [Moles/Vol] 142 mmol/L 134 - 146 mmol/L [facility] Urea nitrogen [Mass/Vol] 20 mg/dL 5 - 27 mg/dL [facility] CBC AND AUTO DIFFon 06-30-19 25 ABSOLUTE BASOPHIL 0.1 X10E9/L Normal 0.0-0.2 [facility] Comment on above: Performed By: #### C BCA, 5643-2, 1798-8, CMP, 3040-3, 72541-5, PINR, 49099-7 #### [facility] ([id number]) [address], [address] [place] [address] ABSOLUTE NEUTROPHIL 8.7 X10E9/L High 1.5-6.6 [facility] Comment on above: Performed By: #### C BCA, 5643-2, 1798-8, CMP, 3040-3, 76254-0, PINR, 59694-8 #### [facility] ([id number]) [address] [place] [address] Basophils/100 WBC (Bld) 1.4 % Normal [facility] Comment on above: Performed By: #### C BCA, 5643-2, 1798-8, CMP, 3040-3, 54437-4, PINR, 61982-0 #### [facility] ([id number]) [address], [address] [place] [address] Eosinophils (Bld) [#/Vol] 0.1 10*3/uL Normal 0.0-0.4 [facility] Comment on above: Performed By: #### C BCA, 5643-2, 1797-12, CMP, 3040-3, 44798-9, PINR, 68958-7 #### [facility] ([id number]) [address], [facility] [address] [place] [address] Eosinophils/100 WBC (Bld) 0.6 % Normal [facility] Comment on above: Performed By: #### C BCA, 5643-2, 1797-12, CMP, 3040-3, 91703-5, PINR, 10060-2 #### [facility] ([id number]) [address], [address] [address] Erythrocyte distribution width (RBC) [Ratio] 15.6 % High 11.5-15.0 [facility] Comment on above: Performed By: #### C BCA, 5643-2, 1797-12, CMP, 3040-3, 33060-9, PINR, 35469-3 #### [facility] ([id number]) [address] [place] [address] Hematocrit (Bld) [Volume fraction] 30.3 % Low 39-49 [facility] Comment on above: Performed By: #### C BCA, 5643-2, 1797-12, CMP, 3040-3, 39349-8, PINR, 03425-5 #### [facility] ([id number]) [address], [facility] [address] [place] [address] Hemoglobin (Bld) [Mass/Vol] 10.4 g/dL Low 13.0-17.0 [facility] Comment on above: Performed By: #### C BCA, 5643-2, 1798-8, CMP, 3040-3, 76475-1, PINR, 41297-6 #### [facility] ([id number]) [address], [address] [place] [address] Lymphocytes (Bld) [#/Vol] 0.6 10*3/uL Low 1.0-3.5 [facility] Comment on above: Performed By: #### C BCA, 5643-2, 1797-8, CMP, 3040-3, 61544-7, PINR, 98520-5 #### [facility] ([id number]) [address], [facility] [address] [place] [address] Lymphocytes/100 WBC (Bld) 5.6 % Normal [facility] Comment on above: Performed By: #### C BCA, 5643-2, 1797-8, CMP, 3040-3, 23362-4, PINR, 31099-5 #### [facility] ([id number]) [address], [address] [place] [address] MCH (RBC) [Entitic mass] 31.5 pg Normal 27-34 [facility] Comment on above: Performed By: #### C BCA, 5643-2, 8, CMP, 3040-3, 07183-9, PINR, 14931-2 #### [facility] ([id number]) [address], [address] [place] [address] MCHC (RBC) [Mass/Vol] 34.3 g/dL Normal 32-36 [facility] Comment on above: Performed By: #### C BCA, 5643-2, 1797-8, CMP, 3040-3, 52924-4, PINR, 92768-8 #### [facility] ([id number]) [address], [address] [place] [address] MCV (RBC) [Entitic vol] 92 fL Normal 80-100 [facility] Comment on above: Performed By: #### C BCA, 5643-2, 8-8, CMP, 3040-3, 84121-7, PINR, 65433-8 #### [facility] ([id number]) [address], [address] [place] [address] Monocytes (Bld) [#/Vol] 0.6 10*3/uL Normal 0-0.9 [facility] Comment on above: Performed By: #### C BCA, 5643-2, 8-8, CMP, 3040-3, 49136-3, PINR, 30147-3 #### [facility] ([id number]) [address], [facility] [address] [place] [address] Monocytes/100 WBC (Bld) 6.4 % Normal [facility] Comment on above: Performed By: #### C BCA, 5643-2, 1797-8, CMP, 3040-3, 36640-0, PINR, 70175-8 #### [facility] ([id number]) [address], [facility] [address] [place] [address] Neutrophils/100 WBC (Bld) 86.0 % Normal [facility] Comment on above: Performed By: #### C BCA, 5643-2, 1797-8, CMP, 3040-3, 82553-8, PINR, 05550-2 #### [facility] ([id number]) [address], [address] [place] [address] Platelet mean volume (Bld) [Entitic vol] 8.8 fL Normal 7-12 [facility] Comment on above: Performed By: #### C BCA, 5643-2, 1797-8, CMP, 3040-3, 24895-1, PINR, 15853-4 #### [facility] ([id number]) [address], [facility] [address] [place] [address] Platelets (Bld) [#/Vol] 197 10*3/uL Normal 150-450 [facility] Comment on above: Performed By: #### C BCA, 5643-2, 1798-8, CMP, 3040-3, 51827-8, PINR, 50749-0 #### [facility] ([id number]) [address], [address] [place] [address] RBC COUNT 3.30 X10E12/L Low 4.10-5.70 [facility] Comment on above: Performed By: #### C BCA, 5643-2, 8-8, CMP, 3040-3, 66318-3, PINR, 01003-4 #### [facility] ([id number]) [address], [address] [place] [address] WBC (Bld) [#/Vol] 10.1 10*3/uL Normal 4.0-11.0 [facility] Comment on above: Performed By: #### C BCA, 5643-2, 8-8, CMP, 3040-3, 61007-9, PINR, 77988-4 #### [facility] ([id number]) [address], [address] [place] [address] CBC auto differentialon 06-15 Basophils (Bld) [#/Vol] 0.1 10*3/uL [facility] Basophils/100 WBC (Bld) 1.4 % [facility] Eosinophils (Bld) [#/Vol] 0.1 10*3/uL [facility] Eosinophils/100 WBC (Bld) 0.6 % [facility] Erythrocyte distribution width (RBC) [Ratio] 15.6 % High 11.5 - 15.0 % [facility] Hematocrit (Bld) [Volume fraction] 30.3 % Low 39 - 49 % [facility] Hemoglobin (Bld) [Mass/Vol] 10.4 g/dL Low 13.0 - 17.0 g/dL [facility] Interpretation and review of laboratory results Abnormal [facility] Lymphocytes (Bld) [#/Vol] 0.6 10*3/uL Low [facility] Lymphocytes/100 WBC (Bld) 5.6 % [facility] MCH (RBC) [Entitic mass] 31.5 pg 27 - 34 pg [facility] MCHC (RBC) [Mass/Vol] 34.3 g/dL 32 - 3 6 g/dL [facility] MCV (RBC) [Entitic vol] 92 fL 80 - 100 fL [facility] Monocytes (Bld) [#/Vol] 0.6 10*3/uL [facility] Monocytes/100 WBC (Bld) 6.4 % P [facility] Neutrophils (Bld) [#/Vol] 8.7 10*3/uL High [facility] Neutrophils/100 WBC (Bld) 86 % [facility] Platelet mean volume (Bld) [Entitic vol] 8.8 fL 7 - 12 fL [facility] Platelets (Bld) [#/Vol] 197 10*3/uL [facility] RBC (Bld) [#/Vol] 3.3 10*6/uL Low [facility] WBC corrected for nucl RBC Auto (Bld) [#/Vol] 10.1 [facility] Calcium.ionized (Bld) [Mass/ Vol]on 06-30-2024 [facility] IONIZED CALCIUM 4.7 mg/dL Normal 4.5-5.3 [facility] Comment on above: Performed By: #### C BCA, 5643-2, 1798-8, CMP, 3040-3, 13962-0, PINR, 09717-1 #### [facility] ([id number]) [address], [address] [place] [address] Crossmatch RBC:Number of Uni ts: 1on 06-30-2024 BB Type Barcode 6200 [facility] Blood component type [id number] [facility] Crossmatch Compatible [facility] Expiration Date [id number] [facility] Status of unit TRANSFUSED [facility] Unit ABO A [facility] Unit number [id number] [facility] RH Positive [facility] Glucose Glucometer (BldC) [M ass/Vol]on 06-30-2024 Glucose [Mass/Vol] 88 mg/dL 65 - 99 mg/dL [facility] Glucose [Mass/Vol] 88 mg/dL Normal 65-99 [facility] Glucose [Mass/Vol] 78 mg/dL 65 - 99 mg/dL [facility] Glucose [Mass/Vol] 78 mg/dL Normal 65-99 [facility] Glucose [Mass/Vol] 67 mg/dL 65 - 99 mg/dL [facility] Glucose [Mass/Vol] 67 mg/dL Normal 65-99 [facility] Glucose [Mass/Vol] 90 mg/dL Normal 65-99 [facility] Glucose [Mass/Vol] 71 mg/dL 65 - 99 mg/dL [facility] Glucose [Mass/Vol] 71 mg/dL Normal 65-99 [facility] HGBon 06-30-2024 Hematocrit (Bld) [Volume fraction] 29.7 % Low 39-49 [facility] Comment on above: Performed By: #### C HERNANDEZ, 5643-2, 8, CMP, 3040-3, 39381-8, PINR, 72787-3 #### [facility] ([id number]) [address], [address] [place] [address] Hemoglobin (Bld) [Mass/Vol] 10.1 g/dL Low 13.0-17.0 [facility] Comment on above: Performed By: #### C HERNANDEZ, 5643-2, 8, CMP, 3040-3, 82694-1, PINR, 74930-8 #### [facility] ([id number]) [address], [address] [place] [address] Hematocrit (Bld) [Volume fraction] 29.1 % Low 39-49 [facility] Comment on above: Performed By: #### C HERNANDEZ, 5643-2, 1798-8, CMP, 3040-3, 58360-9, PINR, 87409-9 #### [facility] ([id number]) [address], [address] [place] [address] Hemoglobin (Bld) [Mass/Vol] 10.0 g/dL Low 13.0-17.0 [facility] Comment on above: Performed By: #### C BCA, 5643-2, 1797-8, CMP, 3040-3, 76419-6, PINR, 79663-4 #### [facility] ([id number]) [address], [address] [place] [address] Hematocrit (Bld) [Volume fraction] 29.9 % Low 39-49 [facility] Comment on above: Performed By: #### C BCA, 5643-2, 1797-8, CMP, 3040-3, 15992-2, PINR, 66059-2 #### [facility] ([id number]) [address], [address] [place] [address] Hemoglobin (Bld) [Mass/Vol] 10.1 g/dL Low 13.0-17.0 [facility] Comment on above: Performed By: #### C BCA, 5643-2, 1797-8, CMP, 3040-3, 63429-9, PINR, 02181-9 #### [facility] ([id number]) [address], [address] [place] [address] Hemoglobin and hematocrit, b loodon 06-30-2024 Hematocrit (Bld) [Volume fraction] 29.7 % Low 39 - 49 % [facility] Hemoglobin (Bld) [Mass/Vol] 10.1 g/dL Low 13.0 - 17.0 g/dL [facility] Interpretation and review of laboratory results Abnormal [facility] Hematocrit (Bld) [Volume fraction] 29.1 % Low 39 - 49 % [facility] Hemoglobin (Bld) [Mass/Vol] 10 g/dL Low 13.0 - 17.0 g/dL [facility] Interpretation and review of laboratory results Abnormal [facility] Hematocrit (Bld) [Volume fraction] 29.9 % Low 39 - 49 % [facility] Hemoglobin (Bld) [Mass/Vol] 10.1 g/dL Low 13.0 - 17.0 g/dL [facility] Interpretation and review of laboratory results Abnormal [facility] Ionized calciumon 06-30-2024 Calcium.ionized (Bld) [Mass/Vol] 4.7 mg/dL 4.5 - 5.3 mg/dL [facility] Ionized magnesiumon 06-30-19 25 Magnesium Ionized ISE (Bld) [Moles/Vol] 0.53 mmol/L 0.45 - 0.74 mmol/L [facility] Comment on above: NEW REFERENCE RANGE Magnesium Ionized ISE (Bld) [Moles/Vol]on 06-30-2024 [facility] Magnesium [Moles/Vol] 0.53 mmol/L Normal 0.45-0.74 [facility] Comment on above: Result Comment: NEW REFERENCE RANGE Performed By: #### C BCA, 5643-2, 1798-8, CMP, 3040-3, 77178-2, PINR, [id number] #### [facility] ([id number]) [address] [place] [address] No Panel Informationon 06-30 [facility] PHOSPHORUSon 06-30-2024 Phosphate [Mass/Vol] 3.5 mg/dL Normal 2.4-4.9 [facility] Comment on above: Performed By: #### C BCA, 5643-2, 1798-8, CMP, 3040-3, 63029-7, PINR, [id number] #### [facility] ([id number]) [address], [address] [place] [address] Phosphoruson 06-30-2024 Phosphate [Mass/Vol] 3.5 mg/dL 2.4 - 4 .9 mg/dL [facility] XR CHEST 1 VWon 06-30-2024 XR CHEST 1 VW XR CHEST 1 VW CLINICAL INFORMATION: Clinical concern for pulmonary edema COMPARISON: Chest radiograph dated 06/29/2024. VIEWS: 1. FINDINGS: Cardiac and mediastinal shadows are normal. 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 Left basilar infiltrate. No effusions. No pneumothorax. No free air below the diaphragm. IMPRESSION: Left basilar infiltrate. No radiographic evidence for pulmonary edema. 9 Finalized by Frieda Shell MD on 06/30/2024 8:17 PM Normal [facility] XR Chest Single viewon 06-30 CLINICAL INFORMATION: Clinical concern for pulmonary edema COMPARISON: Chest radiograph dated 06/29/2024. VIEWS: 1. FINDINGS: Cardiac and mediastinal shadows are normal. 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 Left basilar infiltrate. No effusions. No pneumothorax. No free air below the diaphragm. IMPRESSION: Left basilar infiltrate. No radiographic evidence for pulmonary edema. 9 Finalized by Frieda Shell MD on 06/30/2024 8:17 PM [facility] Frieda Shell MD - 06/30/2024 CLINICAL INFORMATION: Clinical concern for pulmonary edema COMPARISON: Chest radiograph dated 06/29/2024. VIEWS: 1. FINDINGS: Cardiac and mediastinal shadows are normal. 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 Left basilar infiltrate. No effusions. No pneumothorax. No free air below the diaphragm. IMPRESSION: Left basilar infiltrate. No radiographic evidence for pulmonary edema. 9 Finalized by Frieda Shell MD on 06/30/2024 8:17 PM [facility] Radiology Study observation (narrative) [facility] XR Chest Single viewOrdered By: Frieda Shell on 06-30-2024 [facility] Work Phone: ABO Rh Repeaton 06-29-2024 ABO [facility] Rh Nom (Bld) Positive [facility] ABO A [facility] Rh Nom (Bld) Positive [facility] AMYLASEon 06-29-2024 Amylase [Catalytic activity/Vol] 14 U/L Low 28-100 [facility] Comment on above: Performed By: #### C BCA, 5643-2, 1798-8, CMP, 3040-3, 94971-5, PINR, [id number] #### [facility] ([id number]) [address], [address] [place] [address] APTTon 06-29-2024 aPTT Coag (PPP) [Time] 33 s Pr [facility] Amylaseon 06-29-2024 Amylase [Catalytic activity/Vol] 14 U/L Low 28 - 100 U/L [facility] BASIC METABOLIC PANLon 06-29 Anion gap [Moles/Vol] 8 mmol/L Normal 5-15 [facility] Comment on above: Performed By: #### I 8XCA #### [facility] ([id number]) [address] [place] [address] Calcium [Mass/Vol] 7.6 mg/dL Low 8.5-10.5 [facility] Comment on above: Performed By: #### I 8XCA #### [facility] ([id number]) [address] [place] [address] Chloride [Moles/Vol] 108 mmol/L Normal 98-109 [facility] Comment on above: Performed By: #### I 8XCA #### [facility] ([id number]) [address] [place] [address] CO2 [Moles/Vol] 23 mmol/L Normal 22-32 [facility] Comment on above: Performed By: #### I 8XCA #### [facility] ([id number]) [address] [place] [address] Creatinine [Mass/Vol] 1.57 mg/dL High 0.60-1.30 [facility] Comment on above: Result Comment: METH OD TRACEABLE TO IDMS STANDARD Performed By: #### I 8XCA #### [facility] ([id number]) [address] [place] [address] GFR/1.73 sq M.predicted among non-blacks MDRD (S/P/Bld) [Vol rate/Area] 45 mL/min/{1.73_m2} Low >59 [facility] Comment on above: Result Comment: Reported eGFR is based on the CKD-EPI 2020 equation that does not use a race coefficient. Performed By: #### I 8XCA #### [facility] ([id number]) [address] [place] [address] Glucose [Mass/Vol] 111 mg/dL High 65-99 [facility] Comment on above: Performed By: #### I 8XCA #### [facility] ([id number]) [address] [place] [address] Potassium [Moles/Vol] 3.7 mmol/L Normal 3.5-5.0 [facility] Comment on above: Performed By: #### I 8XCA #### [facility] ([id number]) [address] [place] [address] Sodium [Moles/Vol] 139 mmol/L Normal 134-146 [facility] Comment on above: Performed By: #### I 8XCA #### [facility] ([id number]) [address] [place] [address] Urea nitrogen [Mass/Vol] 17 mg/dL Normal 5-27 [facility] Comment on above: Performed By: #### I 8XCA #### [facility] ([id number]) [address] [place] [address] Basic Metabolic Panelon 06-15 Anion gap [Moles/Vol] 8 mmol/L 5 - 15 mmol/L [facility] Calcium [Mass/Vol] 7.6 mg/dL Low 8.5 - 10. 5 mg/dL [facility] Chloride [Moles/Vol] 108 mmol/L 98 - 10 9 mmol/L [facility] CO2 [Moles/Vol] 23 mmol/L 22 - 32 mmol/L [facility] Creatinine [Mass/Vol] 1.57 mg/dL High 0.60 - 1.30 mg/dL [facility] Comment on above: METHOD TRACEABLE TO [facility] STANDARD eGFR (CKD-EPI)non-race dependent 45 Low - PINF [facility] Comment on above: Reported eGFR is based on the CKD-EPI 2020 equation that does not use a race coefficient. Glucose [Mass/Vol] 111 mg/dL High 65 - 99 mg/dL [facility] Interpretation and review of laboratory results Abnormal [facility] Potassium [Moles/Vol] 3.7 mmol/L 3.5 - 5.0 mmol/L [facility] Sodium [Moles/Vol] 139 mmol/L 134 - 146 mmol/L [facility] Urea nitrogen [Mass/Vol] 17 mg/dL 5 - 27 mg/dL [facility] CBC AND AUTO DIFFon 06-29-19 25 ABSOLUTE BASOPHIL 0.1 X10E9/L Normal 0.0-0.2 [facility] Comment on above: Performed By: #### I 8XCA #### [facility] ([id number]) [address] [place] [address] ABSOLUTE NEUTROPHIL 10.1 X10E9/L High 1.5-6.6 [facility] Comment on above: Performed By: #### I 8XCA #### [facility] ([id number]) [address] [place] [address] Basophils/100 WBC (Bld) 0.4 % Normal [facility] Comment on above: Performed By: #### I 8XCA #### [facility] ([id number]) [address] [place] [address] Eosinophils (Bld) [#/Vol] 0.0 10*3/uL Normal 0.0-0.4 [facility] Comment on above: Performed By: #### I 8XCA #### [facility] ([id number]) [address] [place] [address] Eosinophils/100 WBC (Bld) 0.1 % Normal [facility] Comment on above: Performed By: #### I 8XCA #### [facility] ([id number]) [address] [place] [address] Erythrocyte distribution width (RBC) [Ratio] 14.7 % Normal 11.5-15.0 [facility] Comment on above: Performed By: #### I 8XCA #### [facility] ([id number]) [address] [place] [address] Hematocrit (Bld) [Volume fraction] 23.6 % Low 39-49 [facility] Comment on above: Performed By: #### I 8XCA #### [facility] ([id number]) [address] [place] [address] Hemoglobin (Bld) [Mass/Vol] 8.1 g/dL Low 13.0-17.0 [facility] Comment on above: Performed By: #### I 8XCA #### [facility] ([id number]) [address] [place] [address] Lymphocytes (Bld) [#/Vol] 0.6 10*3/uL Low 1.0-3.5 [facility] Comment on above: Performed By: #### I 8XCA #### [facility] ([id number]) [address] [place] [address] Lymphocytes/100 WBC (Bld) 4.8 % Normal [facility] Comment on above: Performed By: #### I 8XCA #### [facility] ([id number]) [address] [place] [address] MCH (RBC) [Entitic mass] 31.7 pg Normal 27-34 [facility] Comment on above: Performed By: #### I 8XCA #### [facility] ([id number]) [address] [place] [address] MCHC (RBC) [Mass/Vol] 34.1 g/dL Normal 32-36 [facility] Comment on above: Performed By: #### I 8XCA #### [facility] ([id number]) [address] [place] [address] MCV (RBC) [Entitic vol] 93 fL Normal 80-100 [facility] Comment on above: Performed By: #### I 8XCA #### [facility] ([id number]) [address] [place] [address] Monocytes (Bld) [#/Vol] 1.0 10*3/uL High 0-0.9 [facility] Comment on above: Performed By: #### I 8XCA #### [facility] ([id number]) [address] [place] [address] Monocytes/100 WBC (Bld) 8.2 % Normal [facility] Comment on above: Performed By: #### I 8XCA #### [facility] ([id number]) [address] [place] [address] Neutrophils/100 WBC (Bld) 86.5 % Normal [facility] Comment on above: Performed By: #### I 8XCA #### [facility] ([id number]) [address] [place] [address] Platelet mean volume (Bld) [Entitic vol] 9.0 fL Normal 7-12 [facility] Comment on above: Performed By: #### I 8XCA #### [facility] ([id number]) [address] [place] [address] Platelets (Bld) [#/Vol] 193 10*3/uL Normal 150-450 [facility] Comment on above: Performed By: #### I 8XCA #### [facility] ([id number]) [address] [place] [address] RBC COUNT 2.54 X10E12/L Low 4.10-5.70 [facility] Comment on above: Performed By: #### I 8XCA #### [facility] ([id number]) [address] [place] [address] WBC (Bld) [#/Vol] 11.7 10*3/uL High 4.0-11.0 [facility] Comment on above: Performed By: #### I 8XCA #### [facility] ([id number]) [address] [place] [address] ABSOLUTE BASOPHIL 0.0 X10E9/L Normal 0.0-0.2 [facility] Comment on above: Performed By: #### C BCA, 5643-2, 1797-8, CMP, 3040-3, 68522-8, PINR, 14114-8 #### [facility] ([id number]) [address], [address] [place] [address] ABSOLUTE NEUTROPHIL 9.1 X10E9/L High 1.5-6.6 [facility] Comment on above: Performed By: #### C BCA, 5643-2, 1797-8, CMP, 3040-3, 25762-1, PINR, 75318-9 #### [facility] ([id number]) [address], [address] [place] [address] Basophils/100 WBC (Bld) 0.1 % Normal [facility] Comment on above: Performed By: #### C BCA, 5643-2, 1797-8, CMP, 3040-3, 29578-8, PINR, 06054-8 #### [facility] ([id number]) [address], [address] [place] [address] Eosinophils (Bld) [#/Vol] 0.0 10*3/uL Normal 0.0-0.4 [facility] Comment on above: Performed By: #### C BCA, 5643-2, 1797-8, CMP, 3040-3, 48545-3, PINR, 80847-5 #### [facility] ([id number]) [address], [address] [place] [address] Eosinophils/100 WBC (Bld) 0.0 % Normal [facility] Comment on above: Performed By: #### C BCA, 5643-2, 1797-8, CMP, 3040-3, 14064-1, PINR, 50234-5 #### [facility] ([id number]) [address] [place] [address] Erythrocyte distribution width (RBC) [Ratio] 14.5 % Normal 11.5-15.0 [facility] Comment on above: Performed By: #### C BCA, 5643-2, 1797-8, CMP, 3040-3, 11075-0, PINR, 69071-2 #### [facility] ([id number]) [address] [place] [address] Hematocrit (Bld) [Volume fraction] 20.6 % Low 39-49 [facility] Comment on above: Performed By: #### C BCA, 5643-2, 1797-8, CMP, 3040-3, 30006-3, PINR, 53357-1 #### [facility] ([id number]) [address], [facility] [address] [place] [address] Hemoglobin (Bld) [Mass/Vol] 6.9 g/dL Critically low 13.0-17.0 [facility] Comment on above: Performed By: #### C BCA, 5643-2, 1797-8, CMP, 3040-3, 07340-9, PINR, 24028-9 #### [facility] ([id number]) [address], [facility] [address] [place] [address] Lymphocytes (Bld) [#/Vol] 0.6 10*3/uL Low 1.0-3.5 [facility] Comment on above: Performed By: #### C BCA, 5643-2, 8, CMP, 3040-3, 97716-1, PINR, 79331-6 #### [facility] ([id number]) [address], [address] [place] [address] Lymphocytes/100 WBC (Bld) 5.3 % Normal [facility] Comment on above: Performed By: #### C BCA, 5643-2, 1797-8, CMP, 3040-3, 97744-5, PINR, 25514-7 #### [facility] ([id number]) [address], [facility] [address] [place] [address] MCH (RBC) [Entitic mass] 31.4 pg Normal 27-34 [facility] Comment on above: Performed By: #### C BCA, 5643-2, 8, CMP, 3040-3, 33393-9, PINR, 21228-3 #### [facility] ([id number]) [address], [facility] [address] [place] [address] MCHC (RBC) [Mass/Vol] 33.4 g/dL Normal 32-36 [facility] Comment on above: Performed By: #### C BCA, 5643-2, 1797-12, CMP, 3040-3, 12788-1, PINR, 33988-3 #### [facility] ([id number]) [address], [address] [place] [address] MCV (RBC) [Entitic vol] 94 fL Normal 80-100 [facility] Comment on above: Performed By: #### C BCA, 5643-2, 8, CMP, 3040-3, 05691-8, PINR, 22837-4 #### [facility] ([id number]) [address], [address] [place] [address] Monocytes (Bld) [#/Vol] 0.9 10*3/uL Normal 0-0.9 [facility] Comment on above: Performed By: #### C BCA, 5643-2, 1797-8, CMP, 3040-3, 47336-8, PINR, 50952-1 #### [facility] ([id number]) [address] [address] Monocytes/100 WBC (Bld) 8.6 % Normal [facility] Comment on above: Performed By: #### C BCA, 5643-2, 1797-8, CMP, 3040-3, 83517-9, PINR, 99936-2 #### [facility] ([id number]) [address] [address] Neutrophils/100 WBC (Bld) 86.0 % Normal [facility] Comment on above: Performed By: #### C BCA, 5643-2, 8, CMP, 3040-3, 19735-3, PINR, 83481-2 #### [facility] ([id number]) [address] [address] Platelet mean volume (Bld) [Entitic vol] 9.3 fL Normal 7-12 [facility] Comment on above: Performed By: #### C BCA, 5643-2, 1797-8, CMP, 3040-3, 76702-3, PINR, 98673-7 #### [facility] ([id number]) [address] [address] Platelets (Bld) [#/Vol] 186 10*3/uL Normal 150-450 [facility] Comment on above: Performed By: #### C BCA, 5643-2, 1797-8, CMP, 3040-3, 82495-8, PINR, 81405-6 #### [facility] ([id number]) [address], [address] [place] [address] RBC COUNT 2.19 X10E12/L Low 4.10-5.70 [facility] Comment on above: Performed By: #### C BCA, 5643-2, 1798-8, CMP, 3040-3, 24129-2, PINR, 93611-5 #### [facility] ([id number]) [address], [address] [place] [address] WBC (Bld) [#/Vol] 10.6 10*3/uL Normal 4.0-11.0 [facility] Comment on above: Performed By: #### C BCA, 5643-2, 1797-8, CMP, 3040-3, 81381-8, PINR, 00397-9 #### [facility] ([id number]) [address], [address] [place] [address] CBC auto differentialon 06-15 Basophils (Bld) [#/Vol] 0.1 10*3/uL [facility] Basophils/100 WBC (Bld) 0.4 % [facility] Eosinophils (Bld) [#/Vol] 0 10*3/uL [facility] Eosinophils/100 WBC (Bld) 0.1 % [facility] Erythrocyte distribution width (RBC) [Ratio] 14.7 % 11.5 - 15.0 % [facility] Hematocrit (Bld) [Volume fraction] 23.6 % Low 39 - 49 % [facility] Hemoglobin (Bld) [Mass/Vol] 8.1 g/dL Low 13.0 - 17.0 g/dL [facility] Interpretation and review of laboratory results Abnormal [facility] Lymphocytes (Bld) [#/Vol] 0.6 10*3/uL Low [facility] Lymphocytes/100 WBC (Bld) 4.8 % [facility] MCH (RBC) [Entitic mass] 31.7 pg 27 - 34 pg [facility] MCHC (RBC) [Mass/Vol] 34.1 g/dL 32 - 3 6 g/dL [facility] MCV (RBC) [Entitic vol] 93 fL 80 - 100 fL [facility] Monocytes (Bld) [#/Vol] 1 10*3/uL High [facility] Monocytes/100 WBC (Bld) 8.2 % [facility] Neutrophils (Bld) [#/Vol] 10.1 10*3/uL High [facility] Neutrophils/100 WBC (Bld) 86.5 % [facility] Platelet mean volume (Bld) [Entitic vol] 9 fL 7 - 12 fL [facility] Platelets (Bld) [#/Vol] 193 10*3/uL [facility] RBC (Bld) [#/Vol] 2.54 10*6/uL Low [facility] WBC corrected for nucl RBC Auto (Bld) [#/Vol] 11.7 High [facility] Basophils (Bld) [#/Vol] 0 10*3/uL [facility] Basophils/100 WBC (Bld) 0.1 % [facility] Eosinophils (Bld) [#/Vol] 0 10*3/uL [facility] Eosinophils/100 WBC (Bld) 0 % [facility] Erythrocyte distribution width (RBC) [Ratio] 14.5 % 11.5 - 15.0 % [facility] Hematocrit (Bld) [Volume fraction] 20.6 % Low 39 - 49 % [facility] Hemoglobin (Bld) [Mass/Vol] 6.9 g/dL Critically low 13.0 - 17.0 g/dL [facility] Interpretation and review of laboratory results Abnormal [facility] Lymphocytes (Bld) [#/Vol] 0.6 10*3/uL Low [facility] Lymphocytes/100 WBC (Bld) 5.3 % [facility] MCH (RBC) [Entitic mass] 31.4 pg 27 - 34 pg [facility] MCHC (RBC) [Mass/Vol] 33.4 g/dL 32 - 3 6 g/dL [facility] MCV (RBC) [Entitic vol] 94 fL 80 - 100 fL [facility] Monocytes (Bld) [#/Vol] 0.9 10*3/uL [facility] Monocytes/100 WBC (Bld) 8.6 % [facility] Neutrophils (Bld) [#/Vol] 9.1 10*3/uL High [facility] Neutrophils/100 WBC (Bld) 86 % [facility] Platelet mean volume (Bld) [Entitic vol] 9.3 fL 7 - 12 fL [facility] Platelets (Bld) [#/Vol] 186 10*3/uL [facility] RBC (Bld) [#/Vol] 2.19 10*6/uL Low [facility] WBC corrected for nucl RBC Auto (Bld) [#/Vol] 10.6 [facility] COMPREHENSIVE METABOLIC PANE Larry 06-29-2024 Albumin [Mass/Vol] 2.4 g/dL Low 3.2-5.3 [facility] Comment on above: Performed By: #### C BCA, 5643-2, 1798-8, CMP, 3040-3, 66816-8, PINR, 60064-7 #### [facility] ([id number]) [address], [address] [place] [address] ALP [Catalytic activity/Vol] 63 U/L Normal 39-130 [facility] Comment on above: Performed By: #### C BCA, 5643-2, 1798-8, CMP, 3040-3, 47170-6, PINR, 88493-7 #### [facility] ([id number]) [address], [address] [place] [address] ALT [Catalytic activity/Vol] 9 U/L Normal 0-40 [facility] Comment on above: Performed By: #### C BCA, 5643-2, 1798-8, CMP, 3040-3, 03546-1, PINR, 02892-2 #### [facility] ([id number]) [address], [address] [place] [address] Anion gap [Moles/Vol] 8 mmol/L Normal 5-15 [facility] Comment on above: Performed By: #### C BCA, 5643-2, 1797-8, CMP, 3040-3, 92189-6, PINR, 66872-1 #### [facility] ([id number]) [address], [address] [place] [address] AST [Catalytic activity/Vol] 15 U/L Normal 0-41 [facility] Comment on above: Performed By: #### C BCA, 5643-2, 1797-8, CMP, 3040-3, 78811-5, PINR, 80078-7 #### [facility] ([id number]) [address], [address] [place] [address] Bilirubin [Mass/Vol] 0.8 mg/dL Normal 0.3-1.2 [facility] Comment on above: Performed By: #### C BCA, 5643-2, 1797-8, CMP, 3040-3, 36096-6, PINR, 67664-8 #### [facility] ([id number]) [address], [address] [place] [address] Calcium [Mass/Vol] 6.9 mg/dL Critically low 8.5-10.5 [facility] Comment on above: Performed By: #### C BCA, 5643-2, 1797-8, CMP, 3040-3, 30809-3, PINR, 72455-7 #### [facility] ([id number]) [address], [address] [place] [address] Chloride [Moles/Vol] 111 mmol/L High 98-109 [facility] Comment on above: Performed By: #### C BCA, 5643-2, 1797-8, CMP, 3040-3, 01205-6, PINR, 82152-0 #### [facility] ([id number]) [address], [address] [place] [address] CO2 [Moles/Vol] 21 mmol/L Low 22-32 [facility] Comment on above: Performed By: #### C BCA, 5643-2, 1797-8, CMP, 3040-3, 20591-5, PINR, 85664-0 #### [facility] ([id number]) [address], [address] [place] [address] Creatinine [Mass/Vol] 1.46 mg/dL High 0.60-1.30 [facility] Comment on above: Result Comment: METH OD TRACEABLE TO IDMS STANDARD Performed By: #### C BCA, 5643-2, 1797-8, CMP, 3040-3, 23890-6, PINR, 32913-2 #### [facility] ([id number]) [address] [place] [address] GFR/1.73 sq M.predicted among non-blacks MDRD (S/P/Bld) [Vol rate/Area] 49 mL/min/{1.73_m2} Low >59 Pr [facility] Comment on above: Result Comment: Reported eGFR is based on the CKD-EPI 2020 equation that does not use a race coefficient. Performed By: #### C BCA, 5643-2, 1797-8, CMP, 3040-3, 58124-1, PINR, [id number] #### [facility] ([id number]) [address], [address] [place] [address] Glucose [Mass/Vol] 105 mg/dL High 65-99 [facility] Comment on above: Performed By: #### C BCA, 5643-2, 1797-8, CMP, 3040-3, 20960-8, PINR, 44879-2 #### [facility] ([id number]) [address], [address] [place] [address] Potassium [Moles/Vol] 3.6 mmol/L Normal 3.5-5.0 [facility] Comment on above: Performed By: #### C BCA, 5643-2, 1798-8, CMP, 3040-3, 50125-3, PINR, 12033-0 #### [facility] ([id number]) [address], [address] [place] [address] Protein [Mass/Vol] 4.5 g/dL Low 6.0-8.0 [facility] Comment on above: Performed By: #### C BCA, 5643-2, 8-8, CMP, 3040-3, 31065-6, PINR, 23725-9 #### [facility] ([id number]) [address], [address] [place] [address] Sodium [Moles/Vol] 140 mmol/L Normal 134-146 [facility] Comment on above: Performed By: #### C BCA, 5643-2, 1797-8, CMP, 3040-3, 77759-6, PINR, 48130-6 #### [facility] ([id number]) [address], [address] [place] [address] Urea nitrogen [Mass/Vol] 16 mg/dL Normal 5-27 [facility] Comment on above: Performed By: #### C BCA, 5643-2, 1797-8, CMP, 3040-3, 60910-9, PINR, 55164-3 #### [facility] ([id number]) [address], [address] [place] [address] Calcium.ionized (Bld) [Mass/ Vol]on 06-29-2024 IONIZED CALCIUM 4.5 mg/dL Normal 4.5-5.3 [facility] Comment on above: Performed By: #### I 8XCA #### [facility] ([id number]) [address] [place] [address] Comprehensive metabolic pane larry 06-29-2024 Albumin [Mass/Vol] 2.4 g/dL Low 3.2 - 5.3 g/dL [facility] ALP [Catalytic activity/Vol] 63 U/L 39 - 130 U/L [facility] ALT No additional P-5'-P [Catalytic activity/Vol] 9 U/L 0 - 40 U/L [facility] Anion gap [Moles/Vol] 8 mmol/L 5 - 15 mmol/L [facility] AST [Catalytic activity/Vol] 15 U/L 0 - 41 U/L [facility] Bilirubin [Mass/Vol] 0.8 mg/dL 0.3 - 1 .2 mg/dL [facility] Calcium [Mass/Vol] 6.9 mg/dL Critically low 8.5 - 1 0.5 mg/dL [facility] Chloride [Moles/Vol] 111 mmol/L High 98 - 10 9 mmol/L [facility] CO2 [Moles/Vol] 21 mmol/L Low 22 - 32 mmol/L [facility] Creatinine [Mass/Vol] 1.46 mg/dL High 0.60 - 1.30 mg/dL [facility] Comment on above: METHOD TRACEABLE TO [facility] STANDARD eGFR (CKD-EPI)non-race dependent 49 Low - PINF [facility] Comment on above: Reported eGFR is based on the CKD-EPI 2020 equation that does not use a race coefficient. Glucose [Mass/Vol] 105 mg/dL High 65 - 99 mg/dL [facility] Interpretation and review of laboratory results Abnormal [facility] Potassium [Moles/Vol] 3.6 mmol/L 3.5 - 5.0 mmol/L [facility] Protein [Mass/Vol] 4.5 g/dL Low 6.0 - 8.0 g/dL [facility] Sodium [Moles/Vol] 140 mmol/L 134 - 146 mmol/L [facility] Urea nitrogen [Mass/Vol] 16 mg/dL 5 - 27 mg/dL [facility] Crossmatch RBC:on 06-29-2024 BB Type Barcode 6200 [facility] Blood component type [id number] [facility] Expiration Date [id number] [facility] Status of unit TRANSFUSED [facility] Unit ABO A [facility] Unit number [id number] [facility] Unit RH Positive [facility] BB Type Barcode 6200 [facility] Blood component type [id number] [facility] Expiration Date [facility] Status of unit ISSUED [facility] Unit ABO A [facility] Unit number [id number] [facility] Unit RH Positive [facility] BB Type Barcode 6200 [facility] Blood component type [id number] [facility] Crossmatch Compatible [facility] Expiration Date [facility] Status of unit SELECTED [facility] Unit ABO A [facility] Unit number [id number] [facility] Unit RH Positive [facility] Expiration Date [id number] [facility] Unit number [id number] [facility] Unit number [id number] [facility] Unit number [id number] [facility] BB Type Barcode 5100 [facility] Blood component type [id number] [facility] Expiration Date [id number] [facility] Status of unit ISSUED [facility] Unit ABO O [facility] Unit number [id number] [facility] Unit RH Positive [facility] Unit number [id number] [facility] Unit number [id number] [facility] BB Type Barcode 5100 [facility] Blood component type [id number] [facility] Crossmatch Compatible [facility] Expiration Date [id number] [facility] Status of unit SELECTED [facility] Unit ABO O [facility] Unit number [id number] [facility] Unit RH Positive [facility] BB Type Barcode 5100 [facility] Blood component type [id number] [facility] Crossmatch Compatible [facility] Expiration Date [id number] [facility] Status of unit SELECTED [facility] Unit ABO O [facility] Unit number [id number] [facility] Unit RH Positive [facility] BB Type Barcode 5100 [facility] Blood component type [id number] [facility]atible [facility] Expiration Date [id number] [facility] Status of unit SELECTED [facility] Unit ABO O [facility] Unit number [id number] [facility] Unit RH Positive [facility] Crossmatch RBC:Number of Uni ts: 1on 06-29-2024 BB Type Barcode 6200 [facility] Blood component type [id number] [facility] Crossmatch Compatible [facility] Expiration Date [id number] [facility] Status of unit TRANSFUSED [facility] Unit [facility]BO A [facility] Unit number [id number] [facility] Unit RH Positive [facility] BB Type Barcode 5100 [facility] Blood component type [id number] [facility] Crossmatch Compatible [facility] Expiration Date [id number] [facility] Status of unit TRANSFUSED [facility] Unit ABO O [facility] Unit number [id number] [facility] Unit RH Positive [facility] DRUG SCREEN, URINEon 025 AMPHETAMINE/METHAMP Negative Normal NEG [facility] Comment on above: Result Comment: AMPH /METH screening cut off = 1000 ng/mL Performed By: #### I 8XCA #### [facility] ([id number]) [address] [place] [address] BARBITURATES Negative Normal NEG [facility] Comment on above: Result Comment: Lilia iturates screening cut off value = 200 ng/mL Performed By: #### I 8XCA #### [facility] ([id number]) [address] [place] [address] BENZODIAZEPINES Negative Normal NEG [facility] Comment on above: Result Comment: Danish odiazepines screening cut off value = 200 ng/mL Performed By: #### I 8XCA #### [facility] ([address] [place] [address]) [address] [place] [address] CANNABINOIDS Negative Normal [facility] Comment on above: Result Comment: Dora abinoids/THC screening cut off value = 50 ng/mL Performed By: #### I 8XCA #### [facility] ([address] [place] [address]) [address] [place] [address] COCAINE METABOLITE Negative Normal [facility] Comment on above: Result Comment: Coca ine screening cut off value = 300 ng/mL Performed By: #### I 8XCA #### [facility] ([address] [place] [address]) [address] [place] [address] ECSTASY Negative Normal [facility] Comment on above: Result Comment: Ecst asy screening cut off value = 500 ng/mL This report is intended for use in clinical monitoring or management of patients. Performed By: #### I 8XCA #### [facility] ([address] [place] [address]) [address] [place] [address] METHADONE Negative [facility] Comment on above: Result Comment: Meth adone screening cut off value = 300 ng/mL. Performed By: #### I 8XCA #### [facility] ([address] [place] [address]) [address] [place] [address] OPIATES Negative Normal [facility] Comment on above: Result Comment: Opia vasiliy screening cut off value = 300 ng/mL NOTE: This test is used for the detection of codeine, hydrocodone (>1000 ng/mL), morphine and hydromorphone (>900 ng/mL) in urine. Performed By: #### I 8XCA #### [facility] ([id number]) [address] [place] [address] OXYCODONE Negative Normal [facility] Comment on above: Result Comment: Oxyc odone screening cut off value = 300 ng/mL NOTE: This test is used for the detection of oxycodone and oxymorphone in urine. Performed By: #### I 8XCA #### [facility] ([id number]) [address] [place] [address] PHENCYCLIDINE Negative Normal NEG [facility] Comment on above: Result Comment: Phen cyclidine screening cut off value = 25 ng/mL Performed By: #### I 8XCA #### [facility] ([id number]) [address] [place] [address] Drug Screen, Urineon 025 Amphetamines Screen method >1000 ng/mL Ql (U) Negative Negative^N [facility] Comment on above: AMPH/METH screening cut off = 1000 ng/mL Barbiturates Screen Ql (U) Negative N egative^N [facility] Comment on above: Barbiturates screeni ng cut off value = 200 ng/mL Benzodiazepines Ql (U) Negative Negat gabriela^N [facility] Comment on above: Benzodiazepines scre ening cut off value = 200 ng/mL Cocaine Ql (U) Negative Negative^N [facility] Comment on above: Cocaine screening cu t off value = 300 ng/mL Methadone Screen Ql (U) Negative Nega tive^N [facility] Comment on above: Methadone screening cut off value = 300 ng/mL. Methylenedioxymethamphetam ine Screen Ql (U) Negative Negative^N [facility] Comment on above: Ecstasy screening cu t off value = 500 ng/mL This report is intended for use in clinical monitoring or management of patients. Opiates Screen Ql (U) Negative Negati ve^N [facility] Comment on above: Opiates screening cu t off value = 300 ng/mL NOTE: This test is used for the detection of codeine, hydrocodone (>1000 ng/mL), morphine and hydromorphone (>900 ng/mL) in urine. oxyCODONE Ql (U) Negative Negative^N [facility] Comment on above: Oxycodone screening cut off value = 300 ng/mL NOTE: This test is used for the detection of oxycodone and oxymorphone in urine. Phencyclidine Screen method >25 ng/mL Ql (U) Negative Negative^N [facility] Comment on above: Phencyclidine screen ing cut off value = 25 ng/mL Tetrahydrocannabinol Screen method >50 ng/mL Ql (U) Negative Negative^N [facility] Comment on above: Cannabinoids/THC scr eening cut off value = 50 ng/mL [facility] ETHANOLon 06-29-2024 Ethanol [Mass/Vol] mg/dL Normal 0.00-0.08 [facility] Comment on above: Result Comment: This report is intended for use in clinical monitoring or management of patients. Performed By: #### C HERNANDEZ, 5643-2, 1798-8, CMP, 3040-3, 62390-4, PINR, 73891-1 #### [facility] ([id number]) [address], [address] [place] [address] Ethanolon 06-29-2024 Ethanol [Mass/Vol] g/dL 0.00 - 0.08 g/dL [facility] Comment on above: This report is intended for use in clinical monitoring or management of patients. Fibrinogenon 06-29-2024 Fibrinogen Coagulation.derived (PPP) [Mass/Vol] 501 mg/dL High 190 - 480 mg/dL [facility] Fibrinogen Coagulation.deriv ed (PPP) [Mass/Vol]on 06-29-2024 FIBRINOGEN 501 mg/dL High 190-480 [facility] Comment on above: Performed By: #### C BCA, 5643-2, 1798-8, CMP, 3040-3, 15892-1, PINR, 66978-5 #### [facility] ([id number]) [address], [address] [place] [address] Glucose Glucometer (BldC) [M ass/Vol]on 06-29-2024 Glucose [Mass/Vol] 75 mg/dL 65 - 99 mg/dL [facility] Glucose [Mass/Vol] 75 mg/dL Normal 65-99 [facility] Glucose [Mass/Vol] 78 mg/dL 65 - 99 mg/dL [facility] Glucose [Mass/Vol] 78 mg/dL Normal 65-99 [facility] Glucose [Mass/Vol] 108 mg/dL High 65 - 99 mg/dL [facility] Interpretation and review of laboratory results Abnormal [facility] Glucose [Mass/Vol] 108 mg/dL High 65-99 [facility] HGBon 06-29-2024 Hematocrit (Bld) [Volume fraction] 26.1 % Low 39-49 [facility] Comment on above: Performed By: #### Kacey NG, 5643-2, 8, CMP, 3040-3, 83021-3, PINR, 38378-3 #### [facility] ([id number]) [address], [address] [place] [address] Hemoglobin (Bld) [Mass/Vol] 8.8 g/dL Low 13.0-17.0 [facility] Comment on above: Performed By: #### Kacey NG, 5643-2, 1797-12, CMP, 3040-3, 36361-3, PINR, 15561-6 #### [facility] ([id number]) [address], [address] [place] [address] Hematocrit (Bld) [Volume fraction] 26.8 % Low 39-49 [facility] Comment on above: Performed By: #### Kacey NG, 5643-2, 8, CMP, 3040-3, 62565-9, PINR, 26065-8 #### [facility] ([id number]) [address], [address] [place] [address] Hemoglobin (Bld) [Mass/Vol] 9.4 g/dL Low 13.0-17.0 [facility] Comment on above: Performed By: #### C BCA, 5643-2, 1798-8, CMP, 3040-3, 01805-1, PINR, 42747-7 #### [facility] ([id number]) [address], [address] [place] [address] Hematocrit (Bld) [Volume fraction] 24.1 % Low 39-49 [facility] Comment on above: Performed By: #### C BCA, 5643-2, 1798-8, CMP, 3040-3, 53998-9, PINR, 75083-5 #### [facility] ([id number]) [address], [address] [place] [address] Hemoglobin (Bld) [Mass/Vol] 7.9 g/dL Low 13.0-17.0 [facility] Comment on above: Performed By: #### C BCA, 5643-2, 8-8, CMP, 3040-3, 23764-7, PINR, 68969-8 #### [facility] ([id number]) [address], [address] [place] [address] HGB A1C (GLYCO-HGB)on 2024 Glucose [Mass/Vol] 114 mg/dL Normal [facility] Comment on above: Performed By: #### C BCA, 5643-2, 8-8, CMP, 3040-3, 87884-1, PINR, 43722-3 #### [facility] ([id number]) [address], [address] [place] [address] HbA1c (Bld) [Mass fraction] 5.6 % Normal 4.4-5.6 [facility] Comment on above: Result Comment: NOTE ADA Guidelines Result HgbA1c Normal : less than 5.7 % Prediabetes : 5.7 % to 6.4 % Diabetes : > 6.4 % Use with caution in patients with abnormal hemoglobin variants as the half-life of red blood cells and in vivo glycation rates are affected. Performed By: #### C BCA, 5643-2, 1798-8, CMP, 3040-3, 52756-6, PINR, 61020-4 #### [facility] ([id number]) [address] [place] [address] Hemoglobin A1con 06-29-2024 Average glucose Estimated from glycated hemoglobin (Bld) [Mass/Vol] 114 mg/dL [facility] HbA1c (Bld) [Mass fraction] 5.6 % 4.4 - 5.6 % [facility] Comment on above: NOTE ADA Guidelines Result HgbA1c Normal : less than 5.7 % Prediabetes : 5.7 % to 6.4 % Diabetes : > 6.4 % Use with caution in patients with abnormal hemoglobin variants as the half-life of red blood cells and in vivo glycation rates are affected. [facility] Hemoglobin and hematocrit, b loodon 06-29-2024 Hematocrit (Bld) [Volume fraction] 26.1 % Low 39 - 49 % [facility] Hemoglobin (Bld) [Mass/Vol] 8.8 g/dL Low 13.0 - 17.0 g/dL [facility] Interpretation and review of laboratory results Abnormal [facility] Hematocrit (Bld) [Volume fraction] 26.8 % Low 39 - 49 % [facility] Hemoglobin (Bld) [Mass/Vol] 9.4 g/dL Low 13.0 - 17.0 g/dL [facility] Interpretation and review of laboratory results Abnormal [facility] Hematocrit (Bld) [Volume fraction] 24.1 % Low 39 - 49 % [facility] Hemoglobin (Bld) [Mass/Vol] 7.9 g/dL Low 13.0 - 17.0 g/dL [facility] Interpretation and review of laboratory results Abnormal [facility] Ionized calciumon 06-29-2024 Calcium.ionized (Bld) [Mass/Vol] 4.5 mg/dL 4.5 - 5.3 mg/dL [facility] Ionized magnesiumon 06-29-19 25 Magnesium Ionized ISE (Bld) [Moles/Vol] 0.52 mmol/L 0.45 - 0.74 mmol/L [facility] Comment on above: NEW REFERENCE RANGE LIPASEon 06-29-2024 Lipase [Catalytic activity/Vol] 8 U/L Low 11-82 [facility] Comment on above: Performed By: #### C BCA, 5643-2, 1798-8, CMP, 3040-3, 46086-9, PINR, 92198-8 #### [facility] ([id number]) [address] [place] [address] Lactate (P rosanne) [Moles/Vol]o n 06-29-2024 [facility] LACTATE W/REFLEX 0.7 mmol/L Normal 0.4-2.0 [facility] Comment on above: Result Comment: Result did not trigger repeat Lactate, re-order if needed. Performed By: #### I 8XCA #### [facility] ([id number]) [address] [place] [address] Lactate w/ Reflexon 06-29-19 25 Lactate (P rosanne) [Moles/Vol] 0.7 mmol/L 0.4 - 2.0 mmol/L [facility] Comment on above: Result did not trigger repeat Lactate, re-order if needed. Lipaseon 06-29-2024 Lipase [Catalytic activity/Vol] 8 U/L Low 11 - 82 U/L [facility] Magnesium Ionized ISE (Bld) [Moles/Vol]on 06-29-2024 Magnesium [Moles/Vol] 0.52 mmol/L Normal 0.45-0.74 [facility] Comment on above: Result Comment: NEW REFERENCE RANGE Performed By: #### I 8XCA #### [facility] ([id number]) [address] [place] [address] Natriuretic peptide B [Mass/ Vol]on 06-29-2024 Interpretation and review of laboratory results Abnormal [facility] Natriuretic peptide B (Bld) [Mass/Vol] 224 pg/mL High NINF - 100.0 pg/mL [facility] Natriuretic peptide B (Bld) [Mass/Vol] 224 pg/mL High <100.0 [facility] Comment on above: Performed By: #### I 8XCA #### [facility] ([id number]) [address] [place] [address] No Panel Informationon 06-[address] [facility] BB Type Barcode 5100 [facility] Blood component type [id number] [facility] Expiration Date [facility] Status of unit /RELEASED [facility] Unit ABO O [facility] Unit RH Positive [facility] BB Type Barcode 5100 [facility] Blood component type [id number] [facility] Expiration Date [facility] Status of unit ISSUED [facility] Unit ABO O [facility] Unit RH Positive [facility] Interpretation and review of laboratory results Abnormal [facility] Interpretation and review of laboratory results Abnormal [facility] PHOSPHORUSon 06-29-2024 Phosphate [Mass/Vol] 3.3 mg/dL Normal 2.4-4.9 [facility] Comment on above: Performed By: #### I 8XCA #### [facility] ([id number]) [address] [place] [address] PLATELET FUNCTIONon 06-29-19 25 COLLAGEN/ADP 162 sec High 0-114 [facility] Comment on above: Performed By: #### C BCA, 5643-2, 1798-8, CMP, 3040-3, 95543-0, PINR, 80644-7 #### [facility] ([id number]) [address] [place] [address] COLLAGEN/EPINEPHRINE 116 sec Normal 0-179 [facility] Comment on above: Performed By: #### C BCA, 5643-2, 1798-8, CMP, 3040-3, 90636-7, PINR, 31349-1 #### [facility] ([id number]) [address], [address] [place] [address] PFA INTERP This pattern is most commonly seen in patients Normal [facility] Comment on above: Result Comment: with von Willebrand disease or congenital platelet defects. However, thrombocytopenia (platelet count <100,000), anemia(HCT<30%), cardiovascular or renal disease may give abnormal results not related to an inherent platelet function abnormality. Futher platelet function studies may be indicated. Performed By: #### C BCA, 5643-2, 1798-8, CMP, 3040-3, 93867-6, PINR, 14713-0 #### [facility] ([id number]) [address] [place] [address] POC CHEM7 W/ HCTon 5 Chloride [Moles/Vol] 107 mmol/L Normal 98-109 [facility] Comment on above: Performed By: #### I 8XCA #### [facility] ([id number]) [address] [place] [address] CO2 [Moles/Vol] 21 mmol/L Low 22-32 [facility] Comment on above: Performed By: #### I 8XCA #### [facility] ([id number]) [address] [place] [address] Creatinine [Mass/Vol] 1.7 mg/dL High 0.7-1.2 [facility] Comment on above: Result Comment: METH OD TRACEABLE TO IDMS STANDARD Performed By: #### I 8XCA #### [facility] ([id number]) [address] [place] [address] GFR/1.73 sq M.predicted among non-blacks MDRD (S/P/Bld) [Vol rate/Area] 41 mL/min/{1.73_m2} Low >59 [facility] Comment on above: Result Comment: Reported eGFR is based on the CKD-EPI 2020 equation that does not use a race coefficient. Performed By: #### I 8XCA #### [facility] ([id number]) [address] [place] [address] Glucose [Mass/Vol] 103 mg/dL High 65-99 [facility] Comment on above: Performed By: #### I 8XCA #### [facility] ([id number]) [address] [place] [address] Hematocrit (Bld) [Volume fraction] 20 % Low 39-49 [facility] Comment on above: Performed By: #### I 8XCA #### [facility] ([id number]) [address] [place] [address] Potassium [Moles/Vol] 3.5 mmol/L Normal 3.5-5.0 [facility] Comment on above: Performed By: #### I 8XCA #### [facility] ([id number]) [address] [place] [address] Sodium [Moles/Vol] 143 mmol/L Normal 134-146 [facility] Comment on above: Performed By: #### I 8XCA #### [facility] ([id number]) [address] [place] [address] Urea nitrogen [Mass/Vol] 14 mg/dL Normal 6-27 [facility] Comment on above: Performed By: #### I 8XCA #### [facility] ([id number]) [address] [place] [address] POCT Electrolytes w/ BUN, Cr eat, Gluc, Hematocriton 06-29-2024 Chloride [Moles/Vol] 107 mmol/L 98 - 10 9 mmol/L [facility] CO2 [Moles/Vol] 21 mmol/L Low 22 - 32 mmol/L [facility] Creatinine [Mass/Vol] 1.7 mg/dL High 0.7 - 1.2 mg/dL [facility] Comment on above: METHOD TRACEABLE TO IDMN STANDARD eGFR (CKD-EPI)non-race dependent 41 Low - PINF [facility] Comment on above: Reported eGFR is based on the CKD-EPI 2020 equation that does not use a race coefficient. Glucose [Mass/Vol] 103 mg/dL High 65 - 99 mg/dL [facility] Hematocrit (Bld) [Volume fraction] 20 % Low 39 - 49 % [facility] Interpretation and review of laboratory results Abnormal [facility] Potassium [Moles/Vol] 3.5 mmol/L 3.5 - 5.0 mmol/L [facility] Sodium [Moles/Vol] 143 mmol/L 134 - 146 mmol/L [facility] Urea nitrogen [Mass/Vol] 14 mg/dL 6 - 27 mg/dL [facility] PROTIME AND INRon 06-29-2024 INR Coag (PPP) [Relative time] 1.6 {INR} High 0.8-1.1 [facility] Comment on above: Performed By: #### C BCA, 5643-2, 1798-8, CMP, 3040-3, 89889-3, PINR, 07965-0 #### [facility] ([id number]) [address], [address] [place] [address] PT Coag (PPP) [Time] 18.1 s High 9.8-13.2 [facility] Comment on above: Performed By: #### C BCA, 5643-2, 1798-8, CMP, 3040-3, 34704-6, PINR, 92540-3 #### [facility] ([id number]) [address] [place] [address] Phosphoruson 06-29-2024 Phosphate [Mass/Vol] 3.3 mg/dL 2.4 - 4 .9 mg/dL [facility] Platelet function teston Interpretation and review of laboratory results Abnormal [facility] Platelet function (closure time) collagen+ADP induced (Bld) [Time] 162 [facility] [facility] Platelet function (closure time) collagen+EPINEPHrine induced (Bld) [Time] 116 [facility] Platelet function (closure time) Renaldo (Bld) [Interp] This pattern is most commonly seen in patients [facility] Comment on above: with von Willebrand disease or congenital platelet defects. However, thrombocytopenia (platelet count <100,000), anemia(HCT<30%), cardiovascular or renal disease may give abnormal results not related to an inherent platelet function abnormality. Futher platelet function studies may be indicated. [facility] Protime & INRon 06-29-2024 INR Coag (PPP) [Relative time] 1.6 {INR} [facility] PT Coag (PPP) [Time] 18.1 s [facility] Type and screen(includes ind irect zoie)on 06-29-2024 ABO A [facility] Rh Nom (Bld) Positive [facility] URINALYSISon 06-29-2024 Bilirubin Ql (U) Negative Normal NEG [facility] Comment on above: Performed By: #### I 8XCA #### [facility] ([id number]) [address] [place] [address] BLOOD/HGB Large Abnormal NEG [facility] Comment on above: Performed By: #### I 8XCA #### [facility] ([id number]) [address] [place] [address] Color (U) ALISSA Abnormal YELLOW [facility] Comment on above: Performed By: #### I 8XCA #### [facility] ([id number]) [address] [place] [address] Glucose Ql (U) >1000 Abnormal NEG [facility] Comment on above: Performed By: #### I 8XCA #### [facility] ([id number]) [address] [place] [address] Ketones Ql (U) Negative Normal NEG [facility] Comment on above: Performed By: #### I 8XCA #### [facility] ([id number]) [address] [place] [address] Leukocyte esterase Test strip Ql (U) Negative Normal NEG [facility] Comment on above: Result Comment: HIGH CONCENTRATIONS OF GLUCOSE MAY DECREASE THE REACTIVITY OF THE DIPSTICK LEUKOCYTE TEST PAD. Performed By: #### I 8XCA #### [facility] ([id number]) [address] [place] [address] MUCOUS PRESENT Abnormal NONE [facility] Comment on above: Performed By: #### I 8XCA #### [facility] ([id number]) [address] [place] [address] Nitrite Ql (U) Negative Normal NEG [facility] Comment on above: Performed By: #### I 8XCA #### [facility] ([id number]) [address] [place] [address] pH (U) 5.5 [pH] Normal 5.0-8.5 [facility] Comment on above: Performed By: #### I 8XCA #### [facility] ([id number]) [address] [place] [address] Protein Ql (U) 50 mg/dL Abnormal NEG [facility] Comment on above: Performed By: #### I 8XCA #### [facility] ([id number]) [address] [place] [address] R.B.CELLS >720 High 0-5 [facility] Comment on above: Performed By: #### I 8XCA #### [facility] ([id number]) [address] [place] [address] Specific gravity (U) [Rel density] 1.015 Normal 1.003-1.03 5 [facility] Comment on above: Performed By: #### I 8XCA #### [facility] ([id number]) [address] [place] [address] SQUAMOUS EPITHELIUM 1 /hpf Normal 0-5 [facility] Comment on above: Performed By: #### I 8XCA #### [facility] ([id number]) [address] [place] [address] TURBIDITY CLEAR Normal CLEAR [facility] Comment on above: Performed By: #### I 8XCA #### [facility] ([id number]) [address] [place] [address] Urinalysis dipstick W Reflex Microscopic panel (U) URINE RECEIVED WITHOUT PRESERVATIVE-DELAYS IN TRANSPORT MAY AFFECT RESULTS.INTERPRET WITH CAUTION AND CLINICAL CORRELATION IS RECOMMENDED. Normal [facility] Comment on above: Performed By: #### I 8XCA #### [facility] ([id number]) [address] [place] [address] Urobilinogen (U) [Mass/Vol] mg/dL Normal <1.1 [facility] Comment on above: Performed By: #### I 8XCA #### [facility] ([id number]) [address] [place] [address] W.B.CELLS 2 /hpf Normal 0-5 [facility] Comment on above: Performed By: #### I 8XCA #### [facility] ([id number]) [address] [place] [address] URINE CULTUREon 06-29-2024 Bacteria identified Cx Nom (U) SPECIMEN NOTES URINE RECEIVED WITHOUT PRESERVATIVE CULTURE RESULTS NO GROWTH AT <1000 CFU/mL Normal [facility] Comment on above: Performed By: #### C BCA, 5643-2, 1798-8, CMP, 3040-3, 96412-6, PINR, 21420-2 #### [facility] ([id number]) [address] [place] [address] Urinalysison 06-29-2024 Bilirubin Ql (U) Negative Negative^N egative [facility] Color (U) ALISSA Abnormal YELLOW^YEL LOW [facility] Epithelial cells Auto (Urine sed) [#/Area] 1 [facility] Glucose (U) [Mass/Vol] mg/dL Abnormal Negat gabriela^N egative mg/dL [facility] Hemoglobin Auto test strip Ql (U) Large Abnormal Negative^N egative [facility] Interpretation and review of laboratory results Abnormal [facility] Ketones (U) [Mass/Vol] Negative Negat gabriela^N egative mg/dL [facility] Leukocyte esterase Auto test strip Ql (U) Negative Negative^N ative [facility] Comment on above: HIGH CONCENTRATIONS OF GLUCOSE MAY DECREASE THE REACTIVITY OF THE DIPSTICK LEUKOCYTE TEST PAD. Mucus Ql (Urine sed) PRESENT Abnormal NONE^NONE [facility] Nitrite Auto test strip Ql (U) Negative Negative^N egative [facility] pH (U) 5.5 [pH] 5.0 - 8.5 [facility] Protein (U) [Mass/Vol] 50 mg/dL Abnormal Negat gabriela^N egative [facility] RBC Auto (Urine sed) [#/Area] High [facility] Specific gravity Refractometry automated (U) [Rel density] 1.015 1.003 - 1.035 [facility] Turbidity Ql (U) CLEAR CLEAR^OMI R [facility] Urinalysis microscopic panel Auto (Urine sed) [#/Area] URINE RECEIVED WITHOUT PRESERVATIVE-DELAYS IN TRANSPORT MAY AFFECT RESULTS.INTERPRET WITH CAUTION AND CLINICAL CORRELATION IS RECOMMENDED. [facility] Urobilinogen Qn (U) NINF [facility] WBC Auto (Urine sed) [#/Area] 2 [facility] XR CHEST 1 VWon 06-29-2024 XR CHEST 1 VW XR CHEST 1 VW HISTORY: Pain, trauma COMPARISON: None FINDINGS: AP supine view of the chest was performed. Left-sided pacemaker with intact leads. Left basilar atelectasis. No overt vascular congestion. No significant pleural effusion or pneumothorax. Osseous structures are grossly intact. IMPRESSION: * No acute abnormality. 7 Finalized by Ricardo Cueto MD on 06/29/2024 1:47 AM Normal [facility] XR Chest Single viewon 06-29 HISTORY: Pain, trauma COMPARISON: None FINDINGS: AP supine view of the chest was performed. Left-sided pacemaker with intact leads. Left basilar atelectasis. No overt vascular congestion. No significant pleural effusion or pneumothorax. Osseous structures are grossly intact. IMPRESSION: * No acute abnormality. 7 Finalized by Ricardo Cueto MD on 06/29/2024 1:47 AM [facility] Ricardo Cueto MD - 06/29/2024 HISTORY: Pain, trauma COMPARISON: None FINDINGS: AP supine view of the chest was performed. Left-sided pacemaker with intact leads. Left basilar atelectasis. No overt vascular congestion. No significant pleural effusion or pneumothorax. Osseous structures are grossly intact. IMPRESSION: * No acute abnormality. 7 Finalized by Ricardo Cueto MD on 06/29/2024 1:47 AM [facility] Radiology Study observation (narrative) [facility] XR Chest Single viewOrdered By: Ricardo Cueto on 06-29-2024 [facility] Work Phone: aPTT Coag (PPP) [Time]on aPTT Coag (Bld) [Time] 33 s Normal 26-37 Pr [facility] Comment on above: Performed By: #### C BCA, 5643-2, 1798-8, CMP, 3040-3, 42364-0, PINR, 15842-9 #### [facility] ([id number]) [address], [address] [place] [address] BLOOD CULTUREon 06-28-2024 Bacteria identified Aer cx Nom (Bld) CULTURE RESULTS NO GROWTH 5 DAYS Normal [facility] Bacteria identified Aer cx Nom (Bld) CULTURE RESULTS NO GROWTH 5 DAYS Normal [facility] CBC AND AUTO DIFFon 06-28-19 25 ABSOLUTE BASOPHIL 0.0 X10E9/L Normal 0.0-0.2 [facility] Comment on above: Performed By: #### C BCA, PINR, 53014-3, CMP, 98126-6, 71412-8 #### [facility] ([id number]) [address] [place] [address] #### 62652-0 #### [facility] ([id number]) [address], [address] [place] [address] ABSOLUTE NEUTROPHIL 12.3 X10E9/L High 1.5-6.6 [facility] Comment on above: Performed By: #### C BCA, PINR, 44939-4, CMP, 38913-3, 25420-5 #### [facility] ([id number]) [address] [place] [address] 54603 #### 21283-8 #### [facility] ([id number]) [address] [facility], [address] [place] [address] Basophils/100 WBC (Bld) 0.3 % Normal P [facility] Comment on above: Performed By: #### C BCA, PINR, 94655-2, CMP, 95604-9, 81300-5 #### [facility] ([id number]) [address] [place] [address] 53795 #### 70185-2 #### [facility] ([id number]) [address] [facility], [address] [place] [address] Eosinophils (Bld) [#/Vol] 0.0 10*3/uL Normal 0.0-0.4 [facility] Comment on above: Performed By: #### C BCA, PINR, 34779-4, CMP, 75644-4, 77687-2 #### [facility] ([id number]) [address] [place] [address] 66509 #### 31768-4 #### [facility] ([id number]) [address] [facility], [address] [place] [address] Eosinophils/100 WBC (Bld) 0.1 % Normal [facility] Comment on above: Performed By: #### C BCA, PINR, 92087-4, CMP, 12871-7, 50039-5 #### [facility] ([id number]) [address] [place] [address] 34946 #### 75872-5 #### [facility] ([id number]) [address] [facility], [address] [place] [address] Erythrocyte distribution width (RBC) [Ratio] 15.0 % Normal 11.5-15.0 [facility] Comment on above: Performed By: #### C BCA, PINR, 05041-3, CMP, 87227-7, 58149-3 #### [facility] ([id number]) [address] [place] [address] 73709 #### 17025-9 #### [facility] ([id number]) [address] [facility], [address] [place] [address] Hematocrit (Bld) [Volume fraction] 25.7 % Low 39-49 [facility] Comment on above: Performed By: #### C BCA, PINR, 89774-0, CMP, 79594-8, 66864-6 #### [facility] ([id number]) [address] [place] [address] 57330 #### 38716-4 #### [facility] ([id number]) [address] [facility], [address] [place] [address] Hemoglobin (Bld) [Mass/Vol] 8.6 g/dL Low 13.0-17.0 [facility] Comment on above: Performed By: #### C BCA, PINR, 26730-0, CMP, 35434-7, 57707-7 #### [facility] ([id number]) [address] [place] [address] 08744 #### 19280-7 #### [facility] ([id number]) [address], [address] [place] [address] Lymphocytes (Bld) [#/Vol] 0.5 10*3/uL Low 1.0-3.5 [facility] Comment on above: Performed By: #### C BCA, PINR, 54838-9, CMP, 14580-1, 92797-0 #### [facility] ([id number]) [address] [place] [address] 98862 #### 65561-9 #### [facility] ([id number]) [address] [facility], [address] [place] [address] Lymphocytes/100 WBC (Bld) 3.3 % Normal [facility] Comment on above: Performed By: #### C BCA, PINR, 85158-1, CMP, , 51573-5 #### [facility] ([id number]) [address] [place] [address] 08256 #### 93463-3 #### [facility] ([id number]) [address], [address] [place] [address] MCH (RBC) [Entitic mass] 31.4 pg Normal 27-34 [facility] Comment on above: Performed By: #### C BCA, PINR, 74401-3, CMP, 28277-1, 02304-9 #### [facility] ([id number]) [address] [place] [address] 23906 #### 89789-0 #### [facility] ([id number]) [address], [address] [place] [address] MCHC (RBC) [Mass/Vol] 33.6 g/dL Normal 32-36 [facility] Comment on above: Performed By: #### C BCA, PINR, 33761-4, CMP, 90509-8,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 ####[facility] ([facility])[address] [place] [address] Erythrocyte distribution width (RBC) [Ratio] 14.2 % Normal 11.5-15.0 [facility] Comment on above: Performed By: #### L [id number] ####[facility] ([facility] [place] [address] ERYTHROCYTE MEAN CORPUSCULAR HEMOGLOBIN CONCENTRATION (G/DL) BY AUTOMATED 31.8 g/dL Low 32.0-35.0 [facility] Comment on above: Performed By: #### L [id number] ####[facility] ([facility] [place] [address] Hematocrit (Bld) [Volume fraction] 34.3 % Low 39.0-55.0 [facility] Comment on above: Performed By: #### L [id number] ####[facility] ([facility] [place] [address] Hemoglobin (Bld) [Mass/Vol] 10.9 g/dL Low 13.0-17.0 [facility] Comment on above: Performed By: #### L [id number] ####[facility] ([facility])[address] [place] [address] Immature granulocytes (Bld) [#/Vol] 0.08 10*3/uL Normal 0.00-0.20 [facility] Comment on above: Performed By: #### L [id number] ####[facility] ([facility] [place] [address] Immature granulocytes/100 WBC (Bld) 0.8 % Normal 0.0-1.0 [facility] Comment on above: Performed By: #### L [id number] ####[facility] ([facility])[address] [place] [address] Lymphocytes (Bld) [#/Vol] 0.58 10*3/uL Low 1.20-4.0 0 [facility] Comment on above: Performed By: #### L [id number] ####[facility] ([facility])[address] [place] [address] Lymphocytes/100 WBC (Bld) 5.7 % Low 20.0-45.0 [facility] Comment on above: Performed By: #### L [id number] ####[facility] ([facility])[address] [place] [address] MCH (RBC) [Entitic mass] 30.9 pg Normal 27.0-33.0 [facility] Comment on above: Performed By: #### L [id number] ####[facility] ([facility])[address] [place] [address] MCV (RBC) [Entitic vol] 97.2 fL Normal 82.0-98.0 U [facility] Comment on above: Performed By: #### L [id number] ####[facility] ([facility])[address] [place] [address] Monocytes (Bld) [#/Vol] 0.79 10*3/uL Normal 0.10-1.00 [facility] Comment on above: Performed By: #### L [id number] ####[facility] ([facility])[address] [place], [place] [address] Monocytes/100 WBC (Bld) 7.8 % Normal 5.0-12.0 U [facility] Comment on above: Performed By: #### L [id number] ####[facility] ([facility])[address] [place] [address] Neutrophils (Bld) [#/Vol] 8.64 10*3/uL High 1.60-7.6 0 [facility] Comment on above: Performed By: #### L [id number] ####[facility] ([facility])[address] [place] [address] Neutrophils/100 WBC (Bld) 84.8 % High 40.0-72.0 [facility] Comment on above: Performed By: #### L [id number] ####[facility] ([facility] [place] [address] NRBC (PER 100 WBCS) BY AUTOMATED COUNT 0.0 % Normal 0 [facility] Comment on above: Performed By: #### L [id number] ####[facility] ([facility])[address] [place] [address] PLATELETS (10*3/UL) IN BLOOD AUTOMATED COUNT 191 10*3/uL Normal 150-400 [facility] Comment on above: Performed By: #### L [id number] ####[facility] ([facility])[address] [place] [address] RBC (Bld) [#/Vol] 3.53 10*6/uL Low 4.20-5.70 [facility] Comment on above: Performed By: #### L [id number] ####[facility] ([facility])[address] [place] [address] WBC (Bld) [#/Vol] 10.18 10*3/uL Normal 4.00-10.60 [facility] Comment on above: Performed By: #### L [id number] ####[facility] ([facility] [place] [address] COMPREHENSIVE METABOLIC PANE Larry 06-26-2024 Albumin [Mass/Vol] 3.1 g/dL Low 3.5-5.7 [facility] Comment on above: Performed By: #### L [id number] ####[facility] ([facility] [place] [address] ALP [Catalytic activity/Vol] 71 U/L Normal 34-104 [facility] Comment on above: Performed By: #### L [id number] ####[facility] [place] [address] ALT [Catalytic activity/Vol] 16 U/L Normal 7-52 [facility] Comment on above: Performed By: #### L [id number] ####[facility] ([facility])[address] [place] [address] Anion gap [Moles/Vol] 10 mmol/L Normal 7-20 [facility] Comment on above: Performed By: #### L [id number] ####[facility] ([facility])[address] [place] [address] AST [Catalytic activity/Vol] 23 U/L Normal 13-39 [facility] Comment on above: Performed By: #### L [id number] ####[facility] ([facility] [place] [address] Bilirubin [Mass/Vol] 0.9 mg/dL Normal 0.3-1.0 [facility] Comment on above: Performed By: #### L [id number] ####[facility] ([facility])[address] [place] [address] Calcium [Mass/Vol] 8.1 mg/dL Low 8.6-10.3 [facility] Comment on above: Performed By: #### L [id number] ####[facility] ([facility])[address] [place] [address] Chloride [Moles/Vol] 108 mmol/L High 98-107 [facility] Comment on above: Performed By: #### L [id number] ####[facility] ([facility])[address] [place] [address] CO2 [Moles/Vol] 24 mmol/L Normal 21-31 [facility] Comment on above: Performed By: #### L [id number] ####[facility] ([facility])[address] [place] [address] Creatinine [Mass/Vol] 1.28 mg/dL Normal 0.70-1.30 [facility] Comment on above: Performed By: #### L [id number] ####[facility] ([facility])[address] [place] [address] GLOMERULAR FILTRATION RATE ML/MIN/1.73 SQ M.PREDICTED 57.3 mL/min/1.73m*2 Low >60.0 U [facility] Comment on above: Result Comment: The [facility]???s estimated glomerular filtration rate (eGFR) will no [...] of individuals. Performed By: #### L [id number] ####[facility] ([facility] [place] [address] Glucose [Mass/Vol] 117 mg/dL High 70-100 [facility] Comment on above: Performed By: #### L [id number] ####[facility] ([facility])[address] [place] [address] Potassium [Moles/Vol] 3.6 mmol/L Normal 3.5-5.1 [facility] Comment on above: Performed By: #### L [id number] ####[facility] ([facility])[address] [place] [address] Protein [Mass/Vol] 5.6 g/dL Low 6.0-8.3 [facility] Comment on above: Performed By: #### L [id number] ####[facility] ([facility])[address] [place] [address] Sodium [Moles/Vol] 138 mmol/L Normal 136-145 [facility] Comment on above: Performed By: #### L [id number] ####[facility] ([facility])[address] [place] [address] Urea nitrogen [Mass/Vol] 13 mg/dL Normal 7-25 [facility] Comment on above: Performed By: #### L [id number] ####[facility] ([facility])[address] [place] [address] UREA NITROGEN/CREATININE (MASS RATIO) IN SER/PLAS 10.2 Normal [facility] Comment on above: Performed By: #### L [id number] ####[facility] ([facility])[address] [place] [address] CONSULTon 06-26-2024 CONSULT Normal [facility] CT ABDOMEN PELVIS WO IV CONT RASTon 06-26-2024 CT ABDOMEN PELVIS WO IV CONTRAST Normal [facility] EDNURSon 06-26-2024 EDNURS Gown ,call light, warm blanket, urinal, labeled speci cup provided. Son with pt. Pt transfer self to stretcher from personal w/c with some difficulty Normal [facility] EDNURS Normal [facility] EDPROVon 06-26-2024 EDPROV Normal [facility] MAGNESIUMon 06-26-2024 Magnesium [Mass/Vol] 1.7 mg/dL Low 1.9-2.7 [facility] Comment on above: Performed By: #### L [id number] ####[facility] ([employer])[address] [place] [address] PROTIME-INRon 06-26-2024 INR IN PPP BY COAGULATION ASSAY 2.07 High 0.90-1.10 [facility] Comment on above: Result Comment: ACCC P RECOMMENDED INR FOR WARFARIN THERAPY CONDITION INRPROPHYLAXIS OF VENOUS THROMBOSIS 2-3(HIGH-RISK SURGERY)TREATMENT OF VENOUS THROMBOSIS 2-3TREATMENT OF PULMONARY EMBOLISM 2-3PREVENTION OF SYSTEMIC EMBOLISM: 2-3 ACUTE MYOCARDIAL INFARCTION TISSUE HEART VALVES VALVULAR HEART DISEASE ATRIAL FIBRILLATION RECURRENT SYSTEMIC EMBOLISMMECHANICAL HEART VALVE 2.5-3.5 FRO M: ORAL ANTICOAGULANTS. MECHANISM OF ACTION, CLINICAL EFFECTIVENESS, AND OPTIMAL THERAPEUTIC RANGE. CHEST 1995;108:231S-246S. Performed By: #### L [id number] ####[facility] ([employer])[address] [place] [address] PROTHROMBIN TIME (PT) IN PPP BY COAGULATION ASSAY 22.9 Seconds High 12.3-14.8 [facility] Comment on above: Performed By: #### L [id number] ####[facility] ([employer])[address] [place] [address] TROPONIN Ion 06-26-2024 Troponin I.cardiac [Mass/Vol] 0.01 ng/mL Normal 0.00-0.04 [facility] Comment on above: Performed By: #### L [id number] ####[facility] (BEAKER)[address] [place] [address] TYPE AND SCREENon 06-26-2024 AB SCREEN Negative Normal [facility] Comment on above: Performed By: #### L [id number] ####[facility], ABO group Nom (Bld) A Normal [facility] Comment on above: Performed By: #### L [id number] ####[facility], RH TYPE IN BLOOD Positive Normal [facility] Comment on above: Performed By: #### L [id number] ####[facility], URINALYSIS MICROSCOPIC WITH REFLEX CULTUREon 06-26-2024 MUCUS (#/LPF) IN URINE SEDIMENT Occasional Normal None Seen, Occasional , Few [facility] Comment on above: Performed By: #### L [id number] ####[facility] (BEAKER)[address] [place] [address] RBC (#/HPF) IN URINE SEDIMENT >20 Abnormal None Seen, 0-2 [facility] Comment on above: Performed By: #### L [id number] ####[facility] (BEAKER)[address] [place] [address] SQUAMOUS EPITHELIAL CELLS (#/LPF) IN URINE SEDIMENT None Seen Normal None Seen, Occasional , Few [facility] Comment on above: Performed By: #### L [id number] ####[facility] (BEAKER)[address] [place] [address] WBC (LEUKOCYTE) (#/HPF) IN URINE SEDIMENT >50 Abnormal None Seen, 0-2 [facility] Comment on above: Performed By: #### L [id number] ####[facility] (BEAKER)[address] [place] [address] URINALYSIS WITH REFLEX CULTU REon 06-26-2024 BILIRUBIN, TOTAL PRESENCE IN URINE Negative Normal Negative [facility] Comment on above: Performed By: #### L [id number] ####[facility] (BEAKER)[address] [place] [address] Clarity (U) Cloudy Abnormal Clear [facility] Comment on above: Performed By: #### L [id number] ####[facility] (BEAKER)[address] [place] [address] Color (U) Dark-Yellow Abnormal Colorless, Yellow, Light-Harnett ow [facility] Comment on above: Performed By: #### L [id number] ####[facility] (BEAKER)[address] [place] [address] Glucose (U) [Mass/Vol] mg/dL Abnormal Normal [facility] Comment on above: Performed By: #### L [id number] ####[facility] ([facility])[address] [place] [address] HEMOGLOBIN PRESENCE IN URINE Large Abnormal Negative [facility] Comment on above: Performed By: #### L [id number] ####[facility] (BEAKER)[address] [place] [address] Ketones Ql (U) Negative Normal Negative [facility] Comment on above: Performed By: #### L [id number] ####[facility] (BEAKER)[address] [place] [address] LEUKOCYTE ESTERASE PRESENCE IN URINE BY TEST STRIP Large Abnormal Negative [facility] Comment on above: Performed By: #### L [id number] ####[facility] (BEAKER)[address] [place] [address] NITRITE PRESENCE IN URINE Negative Normal Negative [facility] Comment on above: Performed By: #### L [id number] ####[facility] (BEAKER)[address] [place] [address] pH (U) 6.5 [pH] Normal 5.0-8.0 [facility] Comment on above: Performed By: #### L [id number] ####[facility] (BEAKER)[address] [place] [address] Protein (U) [Mass/Vol] 30 mg/dL Abnormal Negative [facility] Comment on above: Performed By: #### L [id number] ####[facility] ([facility])[address] [place] [address] Specific gravity (U) [Rel density] 1.023 Normal 1.010-1.03 0 [facility] Comment on above: Performed By: #### L [id number] ####[facility] ([facility])[address] [place] [address] UROBILINOGEN (MG/DL) IN URINE 4.0 mg/dL Abnormal Normal [facility] Comment on above: Performed By: #### L [id number] ####[facility] ([facility])[address] [place] [address] URINE CULTURE, ROUTINEon Bacteria identified Cx Nom (U) No growth at 48 hours Normal [facility] Comment on above: Performed By: #### L [id number] ####[facility] ([facility])[address] [place] [address] ANESon 06-19-2024 ANES Normal [facility] ANES Normal [facility] DEVICE CULTUREon 06-19-2024 Bacteria identified Cx Nom (Unsp spec) No growth at 3 days Normal [facility] Comment on above: Order Comment: Pre-o p diagnosis:Kidney stones [N20.0] Performed By: #### D EVICE CULTURE ####[facility] ([facility])[address] [place] [address] HISTOLOGY - TISSUE EXAMon LAB AP ADDENDUM 1 Normal [facility] Comment on above: Order Comment: Pre-o p diagnosis:Kidney stones [N20.0] Result Comment: 06-16: This case was sent to the Urolithiasis Laboratory in [place], [place] for chemical analysis (please see accompanying report). ? Please see results below:Urolithiasis Results:No nidus observed in the specimenThe stone is composed of:?? Calcium oxalate monohydrate:? 100%Addendum electronically signed by Katy Pierre MD on 07/04/2024 at 11:38 AM Performed By: #### L [id number] ####[facility] (BEAKER)[address] [place] [address] LAB AP CASE REPORT [facility] Comment on above: Order Comment: Pre-o p diagnosis:Kidney stones [N20.0] Result Comment: Surg ical Pathology Case: [id number] Provider: Tino Langston MD Collected: 06/19/2024 1004Ordering Location: [facility] Main Operating Room Received: 06/19/2024 1259Pathologist: JERONIMO Boydpecimen: Kidney, KIDNEY STONE FOR ANALYSIS Performed By: #### L [id number] ####[facility] (BEAKER)[address] [place] [address] LAB AP CLINICAL INFORMATION [facility] Comment on above: Order Comment: Pre-o p diagnosis:Kidney stones [N20.0] Result Comment: Pre- op diagnosis:Kidney stones [N20.0] Performed By: #### L [id number] ####[facility] ([facility])[address] [place] [address] LAB AP GROSS DESCRIPTION A. Kidney. [facility] Comment on above: Order Comment: Pre-o p diagnosis:Kidney stones [N20.0] Result Comment: Part A is received fresh labeled Edward Shiets and kidney stone for analysis . It consists of 2 irregular, wiggins-brown, firm calculi measuring 0.2 x 0.2 x 0.1 cm and 0.2 x 0.1 x 0.1 cm. The specimen is submitted to the Urolithiasis Lab in [place], [place] for chemical analysis.Carolina Adams, Pathologists' Certified Nurse studentAyden Lawson, Pathologists' Certified Nurse student Performed By: #### L [id number] ####[facility] (BEAKER)[address] [place] [address] LAB AP REPORT FINAL DIAGNOSIS NARRATIVE [facility] Comment on above: Order Comment: Pre-o p diagnosis:Kidney stones [N20.0] Result Comment: Shakeel montemayor, stone , removal: - Stone fragments for chemical analysis. Performed By: #### L [id number] ####[facility] (BEAKER)[address] [place] [address] HPon 06-19-2024 HP [facility] OPNOTEon 06-19-2024 OPNOTE [facility] POCT GLUCOSE METER UNSOLICIT ED RESULTSon 06-19-2024 Glucose [Mass/Vol] 84 mg/dL Normal 70-105 [facility] Comment on above: Order Comment: Waive d Testing in the ED is performed under the ED CLIA certificate #[id number]. Result Comment: jenc [email or web address] Performed By: #### L [id number] ####[facility] ([facility])[address] [place] [address] Orders Onlyon 06-18-2024 Orders Only [facility] Orders Onlyon 06-17-2024 Orders Only [facility] Orders Onlyon 05-29-2024 Orders Only [facility] ANESon 05-21-2024 ANES [facility] ANES [facility] HPon 05-21-2024 HP [facility] NURSNOTEon 05-21-2024 DC Spoke with Mehdi from [employer], he stated it is not necessary to interrogate patients pacemaker. Pt is 100% paced and capture AV paced with no issues noted. Dr Ashley notified. 1245 cont with no problems. Stable for DC home. [facility] OPNOTEon 05-21-2024 OPNOTE [facility] Orders Onlyon 05-21-2024 Orders Only [facility] POCT GLUCOSE METER UNSOLICIT ED RESULTSon 05-21-2024 Glucose [Mass/Vol] 90 mg/dL Normal 70-105 [facility] Comment on above: Order Comment: Waive d Testing in the ED is performed under the ED CLIA certificate #[id number]. Result Comment: ngro phong Performed By: #### L [id number] ####[facility] (BEAKER)[address] [place] [address] POCT PERFUSION PANEL UNSOLIC ITED RESULTSon 05-21-2024 CO2 [Moles/Vol] 27.0 mmol/L Normal 21.0-29.0 [facility] Comment on above: Performed By: #### L [id number] ####[facility] (BEAKER)[address] [place] [address] Glucose [Mass/Vol] 96 mg/dL Normal 70-105 [facility] Comment on above: Performed By: #### L [id number] ####[facility] (BEAKER)[address] [place] [address] HCO3 (Bld) [Moles/Vol] 25.5 mmol/L Normal 23.0-28.0 [facility] Comment on above: Performed By: #### L [id number] ####[facility] (BEAKER)[address] [place] [address] Hematocrit (Bld) [Volume fraction] 42 % Normal 38-51 [facility] Comment on above: Performed By: #### L [id number] ####[facility] (BEAKER)[address] [place] [address] Hemoglobin (Bld) [Mass/Vol] 14.3 g/dL Normal 12.0-17.0 [facility] Comment on above: Performed By: #### L [id number] ####[facility] (BEAKER)[address] [place] [address] POCT BASE EXCESS -1.0 mmol/L Normal -2.0-3.0 [facility] Comment on above: Performed By: #### L [id number] ####[facility] (BEAKER)[address] [place] [address] POCT IONIZED CALCIUM 1.51 mmol/L High 1.12-1.32 [facility] Comment on above: Performed By: #### L [id number] ####[facility] ([facility] [place] [address] POCT PCO2 47.1 mmHg Normal 41.0-51.0 [facility] Comment on above: Performed By: #### L [id number] ####[facility] ([facility] [place] [address] POCT PH 7.34 Normal 7.31-7.41 [facility] Comment on above: Performed By: #### L [id number] ####[facility] ([facility])[address] [place] [address] POCT PO2 141 mmHg High 80-105 [facility] Comment on above: Performed By: #### L [id number] ####[facility] ([facility])[address] [place] [address] POCT SO2 99 % High 95-98 [facility] Comment on above: Performed By: #### L [id number] ####[facility] ([facility] [place] [address] Potassium [Moles/Vol] 3.0 mmol/L Low 3.5-4.9 [facility] Comment on above: Performed By: #### L [id number] ####[facility] ([facility])[address] [place] [address] Sodium [Moles/Vol] 142 mmol/L Normal 138.0-146 . 0 [facility] Comment on above: Performed By: #### L [id number] ####[facility] ([facility] [place] [address] URINE CULTURE, STERILE COLLE CTIONon 05-21-2024 Bacteria identified Cx Nom (U) No growth at 48 hours Normal [facility] Comment on above: Order Comment: Pre-o p diagnosis:Staghorn calculus [N20.0] Performed By: #### L [id number] ####[facility] (BEAKER)[address] [place] [address] GRAM STAIN RESULT Normal [facility] Comment on above: Order Comment: Pre-o p diagnosis:Staghorn calculus [N20.0] Result Comment: No p olymorphonuclear leukocytes seenNo organisms seen Performed By: #### L [id number] ####[facility] (FATOU)[address] [place] [address] Orders Onlyon 05-20-2024 Orders Only [facility] Urine Cultureon 05-15-2024 Bacteria identified Cx Nom (U) No Growth 2 Days PERFORMED BY: [facility] [address] [id number] PATHOLOGIST WOUND CARE COORDINATOR MARTINE BAIN M.D. Normal [facility] Comment on above: Performed By: #### C UU #### [address] [address] [place] Orders Onlyon 05-10-2024 Orders Only [facility] 37on 04-24-2024 37 [facility] Orders Onlyon 04-24-2024 Orders Only [facility] Follow-Upon 04-19-2024 Follow-Up [facility] 36on 04-18-2024 36 Patrice, patient's son called back and said his BP now was 131/79. I advised him to continue to keep track of his father's BP trends, taking it 1-2 hours after medications. Asked him to make our office aware of any concerns. He verbalized understanding. [facility] 36 [facility] 36on 04-04-2024 36 Please let him know, labs look good. Okay to resume Farxiga and spironolactone half tablet daily. Thanks! [facility] 36on 04-03-2024 36 Okay to resume Metoprolol. Will await his lab results to see if okay to resume the rest. Please follow-up tomorrow to make sure labs were done today. Thank you! [facility] Telephoneon 04-03-2024 Telephone [facility] 37on 04-02-2024 37 *Replacing carvedilol with metoprolol succinate, 25mg, 1 tablet daily. *Prescription sent for an antibiotic, doxycycline 100mg. Take twice daily for 10 days. [facility] 30on 03-06-2024 30 [facility] 30 [facility] 30 [facility] BASIC METABOLIC PANELon 02-13 Anion gap [Moles/Vol] 7 mmol/L Normal 7-20 [facility] Comment on above: Performed By: #### L [id number] ####[facility] ([employer])[address] [place] [address] Calcium [Mass/Vol] 8.4 mg/dL Low 8.6-10.3 [facility] Comment on above: Performed By: #### L [id number] ####[facility] ([employer])[address] [place] [address] Chloride [Moles/Vol] 105 mmol/L Normal 98-107 [facility] Comment on above: Performed By: #### L [id number] ####[facility] ([employer])[address] [employer] [facility] [place] [address] CO2 [Moles/Vol] 32 mmol/L High 21-31 [facility] Comment on above: Performed By: #### L [id number] ####[facility] ([employer])[address] [place] [address] Creatinine [Mass/Vol] 0.95 mg/dL Normal 0.70-1.30 [facility] Comment on above: Performed By: #### L [id number] ####[facility] ([employer])[address] [address] GLOMERULAR FILTRATION RATE ML/MIN/1.73 SQ M.PREDICTED 81.9 mL/min/1.73m*2 Normal >60.0 U [facility] Comment on above: Result Comment: The [facility]???s estimated glomerular filtration rate (eGFR) will no [...] of individuals. Performed By: #### L [id number] ####[facility] ([facility])[address] [place] [address] Glucose [Mass/Vol] 90 mg/dL Normal 70-100 [facility] Comment on above: Performed By: #### L [id number] ####[facility] ([facility])[address] [place] [address] Potassium [Moles/Vol] 3.8 mmol/L Normal 3.5-5.1 [facility] Comment on above: Performed By: #### L [id number] ####[facility] ([facility])[address] [place] [address] Sodium [Moles/Vol] 140 mmol/L Normal 136-145 [facility] Comment on above: Performed By: #### L [id number] ####[facility] ([facility])[address] [place] [address] Urea nitrogen [Mass/Vol] 21 mg/dL Normal 7-25 [facility] Comment on above: Performed By: #### L [id number] ####[facility] ([facility])[address] [place] [address] UREA NITROGEN/CREATININE (MASS RATIO) IN SER/PLAS 22.1 Normal [facility] Comment on above: Performed By: #### L [id number] ####[facility] ([facility])[address] [place] [address] CBCon 03-06-2024 Erythrocyte distribution width (RBC) [Ratio] 13.3 % Normal 11.5-15.0 [facility] Comment on above: Performed By: #### L [id number] ####[facility] (BEAKER)[address] [address] ERYTHROCYTE MEAN CORPUSCULAR HEMOGLOBIN CONCENTRATION (G/DL) BY AUTOMATED 31.9 g/dL Low 32.0-35.0 [facility] Comment on above: Performed By: #### L [id number] ####[facility] (BEAKER)[address] [address] Hematocrit (Bld) [Volume fraction] 38.3 % Low 39.0-55.0 [facility] Comment on above: Performed By: #### L [id number] ####[facility] (BEAKER)[address] [address] Hemoglobin (Bld) [Mass/Vol] 12.2 g/dL Low 13.0-17.0 [facility] Comment on above: Performed By: #### L [id number] ####[facility] [place] [address] MCH (RBC) [Entitic mass] 31.9 pg Normal 27.0-33.0 [facility] Comment on above: Performed By: #### L [id number] ####[facility] (BEAKER)[address] [address] MCV (RBC) [Entitic vol] 100.3 fL High 82.0-98.0 U [facility] Comment on above: Performed By: #### L [id number] ####[facility] [place] [address] PLATELETS (10*3/UL) IN BLOOD AUTOMATED COUNT 196 10*3/uL Normal 150-400 [facility] Comment on above: Performed By: #### L [id number] ####[facility] (BEAKER)[address] [place] [address] RBC (Bld) [#/Vol] 3.82 10*6/uL Low 4.20-5.70 [facility] Comment on above: Performed By: #### L [id number] ####[facility] (BEAKER)[address] [place] [address] WBC (Bld) [#/Vol] 7.67 10*3/uL Normal 4.00-10.60 [facility] Comment on above: Performed By: #### L [id number] ####[facility] ([facility])[address] [place] [address] CONSULTon 03-06-2024 CONSULT Normal [facility] DSon 03-06-2024 DS Normal [facility] NURSNOTEon 03-06-2024 NURSNOTE This RN called and gave report to Receiving nurse at [place]. Nurse denied further questions. Report given to Transport bedside. Transport has discharge packet. Normal [facility] PRO-BNPon 03-06-2024 Natriuretic peptide B (Bld) [Mass/Vol] 800 pg/mL High 0-300 [facility] Comment on above: Result Comment: An a ge-independent cutoff point of 300 pg/ml has a 98% negative predictive value excluding acute heart failure.Test Performed by [facility] [place] [address] - [employer] 03/06/2024 15:37 Performed By: #### L [id number] ####[facility] [id number] [place] [address] 30on 03-05-2024 30 Normal [facility] 30 Normal [facility] 30 Normal [facility] BASIC METABOLIC PANELon 02-13 Anion gap [Moles/Vol] 9 mmol/L Normal 7-20 [facility] Comment on above: Performed By: #### L [id number] ####[facility] ([facility] [place] [address] Calcium [Mass/Vol] 8.4 mg/dL Low 8.6-10.3 [facility] Comment on above: Performed By: #### L [id number] ####[facility] (BEAKER)[address] [place] [address] Chloride [Moles/Vol] 104 mmol/L Normal 98-107 [facility] Comment on above: Performed By: #### L [id number] ####[facility] ([facility])[address] [place] [address] CO2 [Moles/Vol] 33 mmol/L High 21-31 [facility] Comment on above: Performed By: #### L [id number] ####[facility] ([facility])[address] [facility] [address] Creatinine [Mass/Vol] 1.02 mg/dL Normal 0.70-1.30 [facility] Comment on above: Performed By: #### L [id number] ####[facility] ([facility])[address] [place] [address] GLOMERULAR FILTRATION RATE ML/MIN/1.73 SQ M.PREDICTED 75.2 mL/min/1.73m*2 Normal >60.0 [facility] Comment on above: Result Comment: The [facility]???s estimated glomerular filtration rate (eGFR) will no [...] of individuals. Performed By: #### L [id number] ####[facility] ([facility])[address] [place] [address] Glucose [Mass/Vol] 88 mg/dL Normal 70-100 [facility] Comment on above: Performed By: #### L [id number] ####[facility] ([facility])[address] [place] [address] Potassium [Moles/Vol] 3.8 mmol/L Normal 3.5-5.1 [facility] Comment on above: Performed By: #### L [id number] ####[facility] ([facility] [place] [address] Sodium [Moles/Vol] 142 mmol/L Normal 136-145 [facility] Comment on above: Performed By: #### L [id number] ####[facility] ([facility])[address] [place] [address] Urea nitrogen [Mass/Vol] 25 mg/dL Normal 7-25 [facility] Comment on above: Performed By: #### L [id number] ####[facility] ([facility])[address] [place] [address] UREA NITROGEN/CREATININE (MASS RATIO) IN SER/PLAS 24.5 Normal [facility] Comment on above: Performed By: #### L [id number] ####[facility] ([facility])[address] [place] [address] CBC WITH AUTO DIFFERENTIALon 03-05-2024 Basophils (Bld) [#/Vol] 0.01 10*3/uL Normal 0.00-0.20 [facility] Comment on above: Performed By: #### L [id number] ####[facility] ([facility])[address] [place] [address] Basophils/100 WBC (Bld) 0.1 % Normal 0.0-1.0 [facility] Comment on above: Performed By: #### L [id number] ####[facility] ([facility])[address] [place] [address] Eosinophils (Bld) [#/Vol] 0.08 10*3/uL Normal 0.00-0.5 0 [facility] Comment on above: Performed By: #### L [id number] ####[facility] ([facility])[address] [place] [address] Eosinophils/100 WBC (Bld) 1.0 % Normal 0.0-6.0 [facility] Comment on above: Performed By: #### L [id number] ####[facility] ([facility])[address] [place] [address] Erythrocyte distribution width (RBC) [Ratio] 13.2 % Normal 11.5-15.0 [facility] Comment on above: Performed By: #### L [id number] ####[facility] ([facility])[address] [place] [address] ERYTHROCYTE MEAN CORPUSCULAR HEMOGLOBIN CONCENTRATION (G/DL) BY AUTOMATED 32.3 g/dL Normal 32.0-35.0 [facility] Comment on above: Performed By: #### L [id number] ####[facility] ([facility])[address] [place] [address] Hematocrit (Bld) [Volume fraction] 37.5 % Low 39.0-55.0 [facility] Comment on above: Performed By: #### L [id number] ####[facility] ([facility])[address] [place] [address] Hemoglobin (Bld) [Mass/Vol] 12.1 g/dL Low 13.0-17.0 [facility] Comment on above: Performed By: #### L [id number] ####[facility] ([facility])[address] [place] [address] Immature granulocytes (Bld) [#/Vol] 0.09 10*3/uL Normal 0.00-0.20 [facility] Comment on above: Performed By: #### L [id number] ####[facility] ([facility])[address] [place] [address] Immature granulocytes/100 WBC (Bld) 1.1 % High 0.0-1.0 [facility] Comment on above: Performed By: #### L [id number] ####[facility] ([facility])[address] [place] [address] Lymphocytes (Bld) [#/Vol] 1.27 10*3/uL Normal 1.20-4.0 0 [facility] Comment on above: Performed By: #### L [id number] ####[facility] ([facility])[address] [place] [address] Lymphocytes/100 WBC (Bld) 15.4 % Low 20.0-45.0 [facility] Comment on above: Performed By: #### L [id number] ####[facility] ([facility])[address] [place] [address] MCH (RBC) [Entitic mass] 31.6 pg Normal 27.0-33.0 [facility] Comment on above: Performed By: #### L [id number] ####[facility] ([facility])[address] [place] [address] MCV (RBC) [Entitic vol] 97.9 fL Normal 82.0-98.0 [facility] Comment on above: Performed By: #### L [id number] ####[facility] ([facility])[address] [place] [address] Monocytes (Bld) [#/Vol] 0.65 10*3/uL Normal 0.10-1.00 [facility] Comment on above: Performed By: #### L [id number] ####[facility] ([facility])[address] [place] [address] Monocytes/100 WBC (Bld) 7.9 % Normal 5.0-12.0 [facility] Comment on above: Performed By: #### L [id number] ####[facility] ([facility] [place] [address] Neutrophils (Bld) [#/Vol] 6.14 10*3/uL Normal 1.60-7.6 0 [facility] Comment on above: Performed By: #### L [id number] ####[facility] [place] [address] Neutrophils/100 WBC (Bld) 74.5 % High 40.0-72.0 [facility] Comment on above: Performed By: #### L [id number] ####[facility] ([facility])[address] [place] [address] NRBC (PER 100 WBCS) BY AUTOMATED COUNT 0.0 % Normal 0 [facility] Comment on above: Performed By: #### L [id number] ####[facility] ([facility])[address] [place] [address] PLATELETS (10*3/UL) IN BLOOD AUTOMATED COUNT 190 10*3/uL Normal 150-400 [facility] Comment on above: Performed By: #### L [id number] ####[facility] ([facility])[address] [place] [address] RBC (Bld) [#/Vol] 3.83 10*6/uL Low 4.20-5.70 [facility] Comment on above: Performed By: #### L [id number] ####[facility] ([facility])[address] [place] [address] WBC (Bld) [#/Vol] 8.24 10*3/uL Normal 4.00-10.60 [facility] Comment on above: Performed By: #### L [id number] ####[facility] ([facility])[address] [place] [address] MAGNESIUMon 03-05-2024 Magnesium [Mass/Vol] 1.8 mg/dL Low 1.9-2.7 [facility] Comment on above: Performed By: #### L [id number] ####[facility] ([facility])[address] [place] [address] PHOSPHORUSon 03-05-2024 Magnesium [Mass/Vol] 3.8 mg/dL Normal 2.5-5.0 [facility] Comment on above: Performed By: #### L [id number] ####[facility] ([facility])[address] [place] [address] 30on 03-04-2024 30 Normal [facility] 30 The patient is Moderately Stable - Low risk of patient condition declining or worsening The patient's goals for the shift include Rest The clinical goals for the shift include VSS, safety, rest Normal [facility] ANESon 03-04-2024 ANES Normal [facility] APTTon 03-04-2024 ACTIVATED PARTIAL THROMBOPLASTIN TIME IN PPP BY COAGULATION ASSAY 110.7 Seconds High 25.0-35.0 [facility] Comment on above: Result Comment: Clin ical significance of the APTT is questionable in the presence of heparin. Performed By: #### L [id number] ####[facility] ([facility])[address] [place] [address] ACTIVATED PARTIAL THROMBOPLASTIN TIME IN PPP BY COAGULATION ASSAY 135.9 Seconds Critically high 25.0-35.0 [facility] Comment on above: Result Comment: Clin ical significance of the APTT is questionable in the presence of heparin. Performed By: #### L [id number] ####[facility] ([facility])[address] [facility] [address] B-TYPE NATRIURETIC PEPTIDEon 03-04-2024 Natriuretic peptide B (Bld) [Mass/Vol] 178 pg/mL High 0-100 [facility] Comment on above: Performed By: #### L [id number] ####[facility] ([facility])[address] [facility] [address] BASIC METABOLIC PANELon - Anion gap [Moles/Vol] 11 mmol/L Normal 7-20 [facility] Comment on above: Performed By: #### L [id number] ####[facility] ([facility])[address] [facility] [address] Calcium [Mass/Vol] 8.5 mg/dL Low 8.6-10.3 [facility] Comment on above: Performed By: #### L [id number] ####[facility] ([facility])[address] [facility] [address] Chloride [Moles/Vol] 104 mmol/L Normal 98-107 [facility] Comment on above: Performed By: #### L [id number] ####[facility] ([facility])[address] [facility] [address] CO2 [Moles/Vol] 29 mmol/L Normal 21-31 [facility] Comment on above: Performed By: #### L [id number] ####[facility] ([facility])[address] [place] [address] Creatinine [Mass/Vol] 0.94 mg/dL Normal 0.70-1.30 [facility] Comment on above: Performed By: #### L [id number] ####[facility] ([facility])[address] [place] [address] GLOMERULAR FILTRATION RATE ML/MIN/1.73 SQ M.PREDICTED 83.0 mL/min/1.73m*2 Normal >60.0 [facility] Comment on above: Result Comment: The [facility]???s estimated glomerular filtration rate (eGFR) will no [...] of individuals. Performed By: #### L [id number] ####[facility] ([facility])[address] [place] [address] Glucose [Mass/Vol] 108 mg/dL High 70-100 [facility] Comment on above: Performed By: #### L [id number] ####[facility] ([facility])[address] [place] [address] Potassium [Moles/Vol] 3.8 mmol/L Normal 3.5-5.1 [facility] Comment on above: Performed By: #### L [id number] ####[facility] ([facility])[address] [place] [address] Sodium [Moles/Vol] 140 mmol/L Normal 136-145 [facility] Comment on above: Performed By: #### L [id number] ####[facility] ([facility])[address] [place] [address] Urea nitrogen [Mass/Vol] 29 mg/dL High 7-25 [facility] Comment on above: Performed By: #### L [id number] ####[facility] ([facility])[address] [place] [address] UREA NITROGEN/CREATININE (MASS RATIO) IN SER/PLAS 30.9 Normal [facility] Comment on above: Performed By: #### L [id number] ####[facility] [place] [address] CBC WITH AUTO DIFFERENTIALon 03-04-2024 Basophils (Bld) [#/Vol] 0.02 10*3/uL Normal 0.00-0.20 [facility] Comment on above: Performed By: #### L [id number] ####[facility] ([facility])[address] [place] [address] Basophils/100 WBC (Bld) 0.2 % Normal 0.0-1.0 [facility] Comment on above: Performed By: #### L [id number] ####[facility] ([facility])[address] [place] [address] Eosinophils (Bld) [#/Vol] 0.00 10*3/uL Normal 0.00-0.5 0 [facility] Comment on above: Performed By: #### L [id number] ####[facility] [place] [address] Eosinophils/100 WBC (Bld) 0.0 % Normal 0.0-6.0 [facility] Comment on above: Performed By: #### L [id number] ####[facility] [place] [address] Erythrocyte distribution width (RBC) [Ratio] 13.2 % Normal 11.5-15.0 [facility] Comment on above: Performed By: #### L [id number] ####[facility] [place] [address] ERYTHROCYTE MEAN CORPUSCULAR HEMOGLOBIN CONCENTRATION (G/DL) BY AUTOMATED 31.5 g/dL Low 32.0-35.0 [facility] Comment on above: Performed By: #### L [id number] ####[facility] ([facility])[address] [place] [address] Hematocrit (Bld) [Volume fraction] 38.7 % Low 39.0-55.0 [facility] Comment on above: Performed By: #### L [id number] ####[facility] ([facility])[address] [place] [address] Hemoglobin (Bld) [Mass/Vol] 12.2 g/dL Low 13.0-17.0 [facility] Comment on above: Performed By: #### L [id number] ####[facility] ([facility])[address] [place] [address] Immature granulocytes (Bld) [#/Vol] 0.12 10*3/uL Normal 0.00-0.20 [facility] Comment on above: Performed By: #### L [id number] ####[facility] ([facility])[address] [place] [address] Immature granulocytes/100 WBC (Bld) 1.2 % High 0.0-1.0 [facility] Comment on above: Performed By: #### L [id number] ####[facility] ([facility])[address] [place] [address] Lymphocytes (Bld) [#/Vol] 1.13 10*3/uL Low 1.20-4.0 0 [facility] Comment on above: Performed By: #### L [id number] ####[facility] ([facility])[address] [place] [address] Lymphocytes/100 WBC (Bld) 11.3 % Low 20.0-45.0 [facility] Comment on above: Performed By: #### L [id number] ####[facility] ([facility])[address] [place] [address] MCH (RBC) [Entitic mass] 31.7 pg Normal 27.0-33.0 [facility] Comment on above: Performed By: #### L [id number] ####[facility] ([facility])[address] [place] [address] MCV (RBC) [Entitic vol] 100.5 fL High 82.0-98.0 [facility] Comment on above: Performed By: #### L [id number] ####[facility] ([facility])[address] [place] [address] Monocytes (Bld) [#/Vol] 0.87 10*3/uL Normal 0.10-1.00 [facility] Comment on above: Performed By: #### L [id number] ####[facility] ([facility])[address] [place] [address] Monocytes/100 WBC (Bld) 8.7 % Normal 5.0-12.0 [facility] Comment on above: Performed By: #### L [id number] ####[facility] ([facility])[address] [place] [address] Neutrophils (Bld) [#/Vol] 7.88 10*3/uL High 1.60-7.6 0 [facility] Comment on above: Performed By: #### L [id number] ####[facility] ([facility])[address] [place] [address] Neutrophils/100 WBC (Bld) 78.6 % High 40.0-72.0 [facility] Comment on above: Performed By: #### L [id number] ####[facility] ([facility])[address] [place] [address] NRBC (PER 100 WBCS) BY AUTOMATED COUNT 0.0 % Normal 0 [facility] Comment on above: Performed By: #### L [id number] ####[facility] ([facility])[address] [place] [address] PLATELETS (10*3/UL) IN BLOOD AUTOMATED COUNT 182 10*3/uL Normal 150-400 [facility] Comment on above: Performed By: #### L [id number] ####[facility] ([facility])[address] [place] [address] RBC (Bld) [#/Vol] 3.85 10*6/uL Low 4.20-5.70 [facility] Comment on above: Performed By: #### L [id number] ####[facility] ([facility])[address] [place] [address] WBC (Bld) [#/Vol] 10.02 10*3/uL Normal 4.00-10.60 [facility] Comment on above: Performed By: #### L [id number] ####[facility] ([facility])[address] [place] [address] CONSULTon 03-04-2024 CONSULT [facility] HPon 03-04-2024 HP Normal [facility] MAGNESIUMon 03-04-2024 Magnesium [Mass/Vol] 1.8 mg/dL Low 1.9-2.7 [facility] Comment on above: Performed By: #### L [id number] ####[facility] ([facility])[address] [place] [address] PHOSPHORUSon 03-04-2024 Magnesium [Mass/Vol] 3.1 mg/dL Normal 2.5-5.0 [facility] Comment on above: Performed By: #### L [id number] ####[facility] ([facility])[address] [place] [address] 30on 03-03-2024 30 Normal [facility] 30 Normal [facility] 30 Normal [facility] 30 Normal [facility] APTTon 03-03-2024 ACTIVATED PARTIAL THROMBOPLASTIN TIME IN PPP BY COAGULATION ASSAY 147.8 Seconds Critically high 25.0-35.0 [facility] Comment on above: Result Comment: Clin ical significance of the APTT is questionable in the presence of heparin. Performed By: #### L [id number] ####[facility] ([facility])[address] [place] [address] ACTIVATED PARTIAL THROMBOPLASTIN TIME IN PPP BY COAGULATION ASSAY 124.5 Seconds High 25.0-35.0 [facility] Comment on above: Result Comment: Clin ical significance of the APTT is questionable in the presence of heparin. Performed By: #### L [id number] ####[facility] ([facility])[address] [place] [address] ACTIVATED PARTIAL THROMBOPLASTIN TIME IN PPP BY COAGULATION ASSAY 169.5 Seconds Critically high 25.0-35.0 [facility] Comment on above: Order Comment: Check aPTT every 6 hours while on heparin infusion, or per protocol. Result Comment: Clin ical significance of the APTT is questionable in the presence of heparin. Performed By: #### L [id number] ####[facility] ([facility])[address] [place] [address] BASIC METABOLIC PANELon 10-2 0-2023 Anion gap [Moles/Vol] 9 mmol/L Normal 7-20 [facility] Comment on above: Performed By: #### L [id number] ####[facility] ([facility])[address] [place] [address] Calcium [Mass/Vol] 8.2 mg/dL Low 8.6-10.3 [facility] Comment on above: Performed By: #### L [id number] ####[facility] ([facility])[address] [place] [address] Chloride [Moles/Vol] 103 mmol/L Normal 98-107 [facility] Comment on above: Performed By: #### L [id number] ####[facility] [place] [address] CO2 [Moles/Vol] 32 mmol/L High 21-31 [facility] Comment on above: Performed By: #### L [id number] ####[facility] [place] [address] Creatinine [Mass/Vol] 0.93 mg/dL Normal 0.70-1.30 [facility] Comment on above: Performed By: #### L [id number] ####[facility] ([facility])[address] [place] [address] GLOMERULAR FILTRATION RATE ML/MIN/1.73 SQ M.PREDICTED 84.0 mL/min/1.73m*2 Normal >60.0 [facility] Comment on above: Result Comment: The [facility]???s estimated glomerular filtration rate (eGFR) will no [...] of individuals. Performed By: #### L [id number] ####[facility] ([facility])[address] [place] [address] Glucose [Mass/Vol] 110 mg/dL High 70-100 [facility] Comment on above: Performed By: #### L [id number] ####[facility] ([facility])[address] [place] [address] Potassium [Moles/Vol] 3.3 mmol/L Low 3.5-5.1 [facility] Comment on above: Performed By: #### L [id number] ####[facility] ([facility])[address] [place] [address] Sodium [Moles/Vol] 141 mmol/L Normal 136-145 [facility] Comment on above: Performed By: #### L [id number] ####[facility] ([facility])[address] [place] [address] Urea nitrogen [Mass/Vol] 27 mg/dL High 7-25 [facility] Comment on above: Performed By: #### L [id number] ####[facility] ([facility])[address] [place] [address] UREA NITROGEN/CREATININE (MASS RATIO) IN SER/PLAS 29.0 Normal [facility] Comment on above: Performed By: #### L [id number] ####[facility] ([facility])[address] [place] [address] CBC WITH AUTO DIFFERENTIALon 03-03-2024 Basophils (Bld) [#/Vol] 0.01 10*3/uL Normal 0.00-0.20 [facility] Comment on above: Performed By: #### L [id number] ####[facility] ([facility])[address] [place] [address] Basophils/100 WBC (Bld) 0.1 % Normal 0.0-1.0 [facility] Comment on above: Performed By: #### L [id number] ####[facility] ([facility])[address] [place] [address] Eosinophils (Bld) [#/Vol] 0.00 10*3/uL Normal 0.00-0.5 0 [facility] Comment on above: Performed By: #### L [id number] ####[facility] ([facility])[address] [place] [address] Eosinophils/100 WBC (Bld) 0.0 % Normal 0.0-6.0 [facility] Comment on above: Performed By: #### L [id number] ####[facility] ([facility])[address] [place] [address] Erythrocyte distribution width (RBC) [Ratio] 13.2 % Normal 11.5-15.0 [facility] Comment on above: Performed By: #### L [id number] ####[facility] ([facility])[address] [place] [address] ERYTHROCYTE MEAN CORPUSCULAR HEMOGLOBIN CONCENTRATION (G/DL) BY AUTOMATED 32.1 g/dL Normal 32.0-35.0 [facility] Comment on above: Performed By: #### L [id number] ####[facility] ([facility])[address] [place] [address] Hematocrit (Bld) [Volume fraction] 38.0 % Low 39.0-55.0 [facility] Comment on above: Performed By: #### L [id number] ####[facility] ([facility])[address] [place] [address] Hemoglobin (Bld) [Mass/Vol] 12.2 g/dL Low 13.0-17.0 [facility] Comment on above: Performed By: #### L [id number] ####[facility] ([facility])[address] [place] [address] Immature granulocytes (Bld) [#/Vol] 0.07 10*3/uL Normal 0.00-0.20 [facility] Comment on above: Performed By: #### L [id number] ####[facility] ([facility])[address] [place] [address] Immature granulocytes/100 WBC (Bld) 0.7 % Normal 0.0-1.0 [facility] Comment on above: Performed By: #### L [id number] ####[facility] ([facility])[address] [place] [address] Lymphocytes (Bld) [#/Vol] 1.03 10*3/uL Low 1.20-4.0 0 [facility] Comment on above: Performed By: #### L [id number] ####[facility] ([facility])[address] [place] [address] Lymphocytes/100 WBC (Bld) 10.2 % Low 20.0-45.0 [facility] Comment on above: Performed By: #### L [id number] ####[facility] (BEAKER)[address] [place] [address] MCH (RBC) [Entitic mass] 31.4 pg Normal 27.0-33.0 [facility] Comment on above: Performed By: #### L [id number] ####[facility] ([facility])[address] [place] [address] MCV (RBC) [Entitic vol] 97.7 fL Normal 82.0-98.0 [facility] Comment on above: Performed By: #### L [id number] ####[facility] ([facility])[address] [place] [address] Monocytes (Bld) [#/Vol] 1.01 10*3/uL High 0.10-1.00 [facility] Comment on above: Performed By: #### L [id number] ####[facility] ([facility])[address] [place] [address] Monocytes/100 WBC (Bld) 10.0 % Normal 5.0-12.0 [facility] Comment on above: Performed By: #### L [id number] ####[facility] ([facility])[address] [place] [address] Neutrophils (Bld) [#/Vol] 8.01 10*3/uL High 1.60-7.6 0 [facility] Comment on above: Performed By: #### L [id number] ####[facility] ([facility])[address] [place] [address] Neutrophils/100 WBC (Bld) 79.0 % High 40.0-72.0 [facility] Comment on above: Performed By: #### L [id number] ####[facility] ([facility]ER)[address] [place] [address] NRBC (PER 100 WBCS) BY AUTOMATED COUNT 0.0 % Normal 0 [facility] Comment on above: Performed By: #### L [id number] ####[facility] ([facility]ER)[address] [place] [address] PLATELETS (10*3/UL) IN BLOOD AUTOMATED COUNT 164 10*3/uL Normal 150-400 [facility] Comment on above: Performed By: #### L [id number] ####[facility] (BE[facility]ER)[address] [place], [place] [address] RBC (Bld) [#/Vol] 3.89 10*6/uL Low 4.20-5.70 [facility] Comment on above: Performed By: #### L [id number] ####[facility] (BEAKER)[address] [place], [place] [address] WBC (Bld) [#/Vol] 10.13 10*3/uL Normal 4.00-10.60 [facility] Comment on above: Performed By: #### L [id number] ####[facility] ([facility])[address] [place] [address] CLOSTRIDIOIDES DIFFICILE DNA AMPLIFICATIONon 03-03-2024 CLOSTRIDIOIDES DIFFICILE (TOXIN A/B) Negative Normal Negative [facility] Comment on above: Order Comment: Testi ng methodology is an in vitro diagnostic test for the direct, qualitative detection of the Clostridioides difficile Toxin A gene (tcdA) in unformed stool specimens of patients suspected of having Clostridioides difficile-infection (CDI). The Narcissa C. difficile Assay is intended for use [...] suspected of having Clostridioides difficile-infection (CDI). The Narcissa C. difficile Assay is intended for use as an aid in diagnosis of CDI. The assay utilizes helicase-dependent amplification (HDA) for the amplification of a highly conserved fragment of the Toxin A gene sequence. Performed By: #### L [id number] ####[facility] ([facility])[address] [place] [address] MAGNESIUMon 03-03-2024 Magnesium [Mass/Vol] 1.9 mg/dL Normal 1.9-2.7 [facility] Comment on above: Performed By: #### L [id number] ####[facility] [place] [address] NURSNOTEon 03-03-2024 NURSNOTE Normal [facility] NURSNOTE Normal [facility] PHOSPHORUSon 03-03-2024 Magnesium [Mass/Vol] 2.7 mg/dL Normal 2.5-5.0 [facility] Comment on above: Performed By: #### L [id number] ####[facility] ([facility])[address] [place] [address] 30on 03-02-2024 30 The patient is Moderately Stable - Low risk of patient condition declining or worsening The patient's goals for the shift include Comfort The clinical goals for the shift include VSS, safety Normal [facility] APTTon 03-02-2024 ACTIVATED PARTIAL THROMBOPLASTIN TIME IN PPP BY COAGULATION ASSAY 127.4 Seconds High 25.0-35.0 [facility] Comment on above: Order Comment: Check aPTT every 6 hours while on heparin infusion, or per protocol. Result Comment: Clin ical significance of the APTT is questionable in the presence of heparin. Performed By: #### L [id number] ####[facility] ([facility])[address] [place] [address] ACTIVATED PARTIAL THROMBOPLASTIN TIME IN PPP BY COAGULATION ASSAY 106.1 Seconds High 25.0-35.0 [facility] Comment on above: Order Comment: Check aPTT every 6 hours while on heparin infusion, or per protocol. Result Comment: Clin ical significance of the APTT is questionable in the presence of heparin. Performed By: #### L [id number] ####[facility] ([facility])[address] [place] [address] BASIC METABOLIC PANELon 02-12 Anion gap [Moles/Vol] 10 mmol/L Normal 7-20 [facility] Comment on above: Performed By: #### L [id number] ####[facility] ([facility])[address] [place] [address] Calcium [Mass/Vol] 8.1 mg/dL Low 8.6-10.3 [facility] Comment on above: Performed By: #### L [id number] ####[facility] [place] [address] Chloride [Moles/Vol] 104 mmol/L Normal 98-107 [facility] Comment on above: Performed By: #### L [id number] ####[facility] (BEAKER)[address] [place] [address] CO2 [Moles/Vol] 30 mmol/L Normal 21-31 [facility] Comment on above: Performed By: #### L [id number] ####[facility] ([facility])[address] [place] [address] Creatinine [Mass/Vol] 0.97 mg/dL Normal 0.70-1.30 [facility] Comment on above: Performed By: #### L [id number] ####[facility] ([facility])[address] [place] [address] GLOMERULAR FILTRATION RATE ML/MIN/1.73 SQ M.PREDICTED 79.9 mL/min/1.73m*2 Normal >60.0 [facility] Comment on above: Result Comment: The [facility]???s estimated glomerular filtration rate (eGFR) will no [...] of individuals. Performed By: #### L [id number] ####[facility] ([facility])[address] [place] [address] Glucose [Mass/Vol] 136 mg/dL High 70-100 [facility] Comment on above: Performed By: #### L [id number] ####[facility] ([facility])[address] [place] [address] Potassium [Moles/Vol] 3.0 mmol/L Low 3.5-5.1 [facility] Comment on above: Performed By: #### L [id number] ####[facility] ([facility])[address] [place] [address] Sodium [Moles/Vol] 141 mmol/L Normal 136-145 [facility] Comment on above: Performed By: #### L [id number] ####[facility] ([facility])[address] [place] [address] Urea nitrogen [Mass/Vol] 37 mg/dL High 7-25 [facility] Comment on above: Performed By: #### L [id number] ####[facility] [place] [address] UREA NITROGEN/CREATININE (MASS RATIO) IN SER/PLAS 38.1 Normal [facility] Comment on above: Performed By: #### L [id number] ####[facility] [place] [address] CBC WITH AUTO DIFFERENTIALon 03-02-2024 Basophils (Bld) [#/Vol] 0.01 10*3/uL Normal 0.00-0.20 [facility] Comment on above: Performed By: #### L [id number] ####[facility] [place] [address] Basophils/100 WBC (Bld) 0.1 % Normal 0.0-1.0 [facility] Comment on above: Performed By: #### L [id number] ####[facility] (BEAKER)[address] [place] [address] Eosinophils (Bld) [#/Vol] 0.00 10*3/uL Normal 0.00-0.5 0 [facility] Comment on above: Performed By: #### L [id number] ####[facility] [place] [address] Eosinophils/100 WBC (Bld) 0.0 % Normal 0.0-6.0 [facility] Comment on above: Performed By: #### L [id number] ####[facility] (BEAKER)[address] [place] [address] Erythrocyte distribution width (RBC) [Ratio] 12.9 % Normal 11.5-15.0 [facility] Comment on above: Performed By: #### L [id number] ####[facility] (BEAKER)[address] [place] [address] ERYTHROCYTE MEAN CORPUSCULAR HEMOGLOBIN CONCENTRATION (G/DL) BY AUTOMATED 32.3 g/dL Normal 32.0-35.0 [facility] Comment on above: Performed By: #### L [id number] ####[facility] [place] [address] Hematocrit (Bld) [Volume fraction] 36.8 % Low 39.0-55.0 [facility] Comment on above: Performed By: #### L [id number] ####[facility] ([facility])[address] [place] [address] Hemoglobin (Bld) [Mass/Vol] 11.9 g/dL Low 13.0-17.0 [facility] Comment on above: Performed By: #### L [id number] ####[facility] ([facility])[address] [place] [address] Immature granulocytes (Bld) [#/Vol] 0.05 10*3/uL Normal 0.00-0.20 [facility] Comment on above: Performed By: #### L [id number] ####[facility] [place] [address] Immature granulocytes/100 WBC (Bld) 0.7 % Normal 0.0-1.0 [facility] Comment on above: Performed By: #### L [id number] ####[facility] [place] [address] Lymphocytes (Bld) [#/Vol] 0.58 10*3/uL Low 1.20-4.0 0 [facility] Comment on above: Performed By: #### L [id number] ####[facility] (BEAKER)[address] [place] [address] Lymphocytes/100 WBC (Bld) 7.8 % Low 20.0-45.0 [facility] Comment on above: Performed By: #### L [id number] ####[facility] (BEAKER)[address] [place] [address] MCH (RBC) [Entitic mass] 32.1 pg Normal 27.0-33.0 [facility] Comment on above: Performed By: #### L [id number] ####[facility] [place] [address] MCV (RBC) [Entitic vol] 99.2 fL High 82.0-98.0 [facility] Comment on above: Performed By: #### L [id number] ####[facility] ([facility])[address] [place] [address] Monocytes (Bld) [#/Vol] 0.56 10*3/uL Normal 0.10-1.00 [facility] Comment on above: Performed By: #### L [id number] ####[facility] ([facility])[address] [place] [address] Monocytes/100 WBC (Bld) 7.5 % Normal 5.0-12.0 [facility] Comment on above: Performed By: #### L [id number] ####[facility] ([facility])[address] [place] [address] Neutrophils (Bld) [#/Vol] 6.28 10*3/uL Normal 1.60-7.6 0 [facility] Comment on above: Performed By: #### L [id number] ####[facility] (BEAKER)[address] [place] [address] Neutrophils/100 WBC (Bld) 83.9 % High 40.0-72.0 [facility] Comment on above: Performed By: #### L [id number] ####[facility] (BEAKER)[address] [place] [address] NRBC (PER 100 WBCS) BY AUTOMATED COUNT 0.0 % Normal 0 [facility] Comment on above: Performed By: #### L [id number] ####[facility] (BEAKER)[address] [place] [address] PLATELETS (10*3/UL) IN BLOOD AUTOMATED COUNT 159 10*3/uL Normal 150-400 [facility] Comment on above: Performed By: #### L [id number] ####[facility] ([facility])[address] [place] [address] RBC (Bld) [#/Vol] 3.71 10*6/uL Low 4.20-5.70 [facility] Comment on above: Performed By: #### L [id number] ####[facility] ([facility])[address] [place] [address] WBC (Bld) [#/Vol] 7.48 10*3/uL Normal 4.00-10.60 [facility] Comment on above: Performed By: #### L [id number] ####[facility] ([facility])[address] [place] [address] MAGNESIUMon 03-02-2024 Magnesium [Mass/Vol] 1.9 mg/dL Normal 1.9-2.7 [facility] Comment on above: Performed By: #### L [id number] ####[facility] ([facility])[address] [place] [address] NURSNOTEon 03-02-2024 NURSNOTE Normal [facility] PHOSPHORUSon 03-02-2024 Magnesium [Mass/Vol] 3.4 mg/dL Normal 2.5-5.0 [facility] Comment on above: Performed By: #### L [id number] ####[facility] ([facility])[address] [place] [address] VENOUS BLOOD GAS WITH IONIZE D CALCIUMon 03-02-2024 Base excess Calc (BldV) [Moles/Vol] 4.3 mmol/L Normal [facility] Comment on above: Performed By: #### L [id number] ####[facility] [id number] [place] [address] [place] CALCIUM IONIZED (MMOL/L) IN BLOOD 1.19 mmol/L Normal 1.15-1.33 [facility] Comment on above: Performed By: #### L [id number] ####[facility] [id number] [place] [address] [place] CO2 (BldV) [Partial pressure] 47 mm[Hg] Normal 40-50 [facility] Comment on above: Performed By: #### L [id number] ####[facility] [id number] [place] [address] [facility] HCO3 (Bld) [Moles/Vol] 29.8 mmol/L Normal [facility] Comment on above: Performed By: #### L [id number] ####[facility] [id number] [place] [address] [facility] Oxygen (BldV) [Partial pressure] 46 mm[Hg] High 35-45 [facility] Comment on above: Performed By: #### L [id number] ####[facility] [id number] [place] [address] [facility] OXYGEN SATURATION (%) IN VENOUS BLOOD 76.1 % High 65.0-75.0 [facility] Comment on above: Performed By: #### L [id number] ####[facility] [id number] [place] [address] [facility] PH OF VENOUS BLOOD 7.41 Normal 7.31-7.41 [facility] Comment on above: Performed By: #### L [id number] ####[facility] [id number] [place] [address] [facility] 30on 03-01-2024 30 Normal [facility] BASIC METABOLIC PANELon 02-12 Anion gap [Moles/Vol] 10 mmol/L Normal 7-20 [facility] Comment on above: Performed By: #### L [id number] ####[facility] (BEAKER)[address] [place] [address] Calcium [Mass/Vol] 8.3 mg/dL Low 8.6-10.3 [facility] Comment on above: Performed By: #### L [id number] ####[facility] (BEAKER)[address] [place] [address] Chloride [Moles/Vol] 104 mmol/L Normal 98-107 [facility] Comment on above: Performed By: #### L [id number] ####[facility] [place] [address] CO2 [Moles/Vol] 29 mmol/L Normal 21-31 [facility] Comment on above: Performed By: #### L [id number] ####[facility] ([facility])[address] [place] [address] Creatinine [Mass/Vol] 0.99 mg/dL Normal 0.70-1.30 [facility] Comment on above: Performed By: #### L [id number] ####[facility] ([facility])[address] [place] [address] GLOMERULAR FILTRATION RATE ML/MIN/1.73 SQ M.PREDICTED 78.0 mL/min/1.73m*2 Normal >60.0 [facility] Comment on above: Result Comment: The [facility]???s estimated glomerular filtration rate (eGFR) will no [...] of individuals. Performed By: #### L [id number] ####[facility] ([facility])[address] [place] [address] Glucose [Mass/Vol] 156 mg/dL High 70-100 [facility] Comment on above: Performed By: #### L [id number] ####[facility] [place] [address] Potassium [Moles/Vol] 3.4 mmol/L Low 3.5-5.1 [facility] Comment on above: Performed By: #### L [id number] ####[facility] [place] [address] Sodium [Moles/Vol] 140 mmol/L Normal 136-145 [facility] Comment on above: Performed By: #### L [id number] ####[facility] ([facility])[address] [place] [address] Urea nitrogen [Mass/Vol] 35 mg/dL High 12-06 [facility] Comment on above: Performed By: #### L [id number] ####[facility] ([facility])[address] [place] [address] UREA NITROGEN/CREATININE (MASS RATIO) IN SER/PLAS 35.4 Normal [facility] Comment on above: Performed By: #### L [id number] ####[facility] ([facility])[address] [place] [address] BLOOD CULTUREon 03-01-2024 Bacteria identified Cx Nom (Bld) No growth at 5 days Normal [facility] Comment on above: Performed By: #### L [id number] ####[facility] ([facility])[address] [place] [address] CBC WITH AUTO DIFFERENTIALon 03-01-2024 Basophils (Bld) [#/Vol] 0.01 10*3/uL Normal 0.00-0.20 [facility] Comment on above: Performed By: #### L [id number] ####[facility] ([facility])[address] [place] [address] Basophils/100 WBC (Bld) 0.1 % Normal 0.0-1.0 [facility] Comment on above: Performed By: #### L [id number] ####[facility] ([facility])[address] [place] [address] Eosinophils (Bld) [#/Vol] 0.00 10*3/uL Normal 0.00-0.5 0 [facility] Comment on above: Performed By: #### L [id number] ####[facility] [place] [address] Eosinophils/100 WBC (Bld) 0.0 % Normal 0.0-6.0 [facility] Comment on above: Performed By: #### L [id number] ####[facility] [place] [address] Erythrocyte distribution width (RBC) [Ratio] 12.9 % Normal 11.5-15.0 [facility] Comment on above: Performed By: #### L [id number] ####[facility] ([facility])[address] [place] [address] ERYTHROCYTE MEAN CORPUSCULAR HEMOGLOBIN CONCENTRATION (G/DL) BY AUTOMATED 32.1 g/dL Normal 32.0-35.0 [facility] Comment on above: Performed By: #### L [id number] ####[facility] ([facility])[address] [place] [address] Hematocrit (Bld) [Volume fraction] 38.9 % Low 39.0-55.0 [facility] Comment on above: Performed By: #### L [id number] ####[facility] ([facility])[address] [place] [address] Hemoglobin (Bld) [Mass/Vol] 12.5 g/dL Low 13.0-17.0 [facility] Comment on above: Performed By: #### L [id number] ####[facility] ([facility])[address] [place] [address] Immature granulocytes (Bld) [#/Vol] 0.05 10*3/uL Normal 0.00-0.20 [facility] Comment on above: Performed By: #### L [id number] ####[facility] [place] [address] Immature granulocytes/100 WBC (Bld) 0.5 % Normal 0.0-1.0 [facility] Comment on above: Performed By: #### L [id number] ####[facility] (BEAKER)[address] [place] [address] Lymphocytes (Bld) [#/Vol] 0.42 10*3/uL Low 1.20-4.0 0 [facility] Comment on above: Performed By: #### L [id number] ####[facility] (BEAKER)[address] [place] [address] Lymphocytes/100 WBC (Bld) 4.2 % Low 20.0-45.0 [facility] Comment on above: Performed By: #### L [id number] ####[facility] (BEAKER)[address] [place] [address] MCH (RBC) [Entitic mass] 31.9 pg Normal 27.0-33.0 [facility] Comment on above: Performed By: #### L [id number] ####[facility] (BEAKER)[address] [place] [address] MCV (RBC) [Entitic vol] 99.2 fL High 82.0-98.0 [facility] Comment on above: Performed By: #### L [id number] ####[facility] (BEAKER)[address] [place] [address] Monocytes (Bld) [#/Vol] 0.45 10*3/uL Normal 0.10-1.00 [facility] Comment on above: Performed By: #### L [id number] ####[facility] (BEAKER)[address] [place] [address] Monocytes/100 WBC (Bld) 4.5 % Low 5.0-12.0 [facility] Comment on above: Performed By: #### L [id number] ####[facility] (BEAKER)[address] [place] [address] Neutrophils (Bld) [#/Vol] 9.11 10*3/uL High 1.60-7.6 0 [facility] Comment on above: Performed By: #### L [id number] ####[facility] (BEAKER)[address] [place] [address] Neutrophils/100 WBC (Bld) 90.7 % High 40.0-72.0 [facility] Comment on above: Performed By: #### L [id number] ####[facility] (BEAKER)[address] [place] [address] NRBC (PER 100 WBCS) BY AUTOMATED COUNT 0.0 % Normal 0 [facility] Comment on above: Performed By: #### L [id number] ####[facility] (BEAKER)[address] [place] [address] PLATELETS (10*3/UL) IN BLOOD AUTOMATED COUNT 165 10*3/uL Normal 150-400 [facility] Comment on above: Performed By: #### L [id number] ####[facility] (BEAKER)[address] [place] [address] RBC (Bld) [#/Vol] 3.92 10*6/uL Low 4.20-5.70 [facility] Comment on above: Performed By: #### L [id number] ####[facility] (BEAKER)[address] [place] [address] WBC (Bld) [#/Vol] 10.04 10*3/uL Normal 4.00-10.60 [facility] Comment on above: Performed By: #### L [id number] ####[facility] (BEAKER)[address] [place] [address] Basophils (Bld) [#/Vol] 0.01 10*3/uL Normal 0.00-0.20 [facility] Comment on above: Performed By: #### L [id number] ####[facility] (BEAKER)[address] [place] [address] Basophils/100 WBC (Bld) 0.1 % Normal 0.0-1.0 [facility] Comment on above: Performed By: #### L [id number] ####[facility] ([facility])[address] [place] [address] Eosinophils (Bld) [#/Vol] 0.00 10*3/uL Normal 0.00-0.5 0 [facility] Comment on above: Performed By: #### L [id number] ####[facility] ([facility])[address] [place] [address] Eosinophils/100 WBC (Bld) 0.0 % Normal 0.0-6.0 [facility] Comment on above: Performed By: #### L [id number] ####[facility] ([facility])[address] [place] [address] Erythrocyte distribution width (RBC) [Ratio] 12.8 % Normal 11.5-15.0 [facility] Comment on above: Performed By: #### L [id number] ####[facility] ([facility])[address] [place] [address] ERYTHROCYTE MEAN CORPUSCULAR HEMOGLOBIN CONCENTRATION (G/DL) BY AUTOMATED 31.9 g/dL Low 32.0-35.0 [facility] Comment on above: Performed By: #### L [id number] ####[facility] ([facility])[address] [place] [address] Hematocrit (Bld) [Volume fraction] 37.9 % Low 39.0-55.0 [facility] Comment on above: Performed By: #### L [id number] ####[facility] ([facility])[address] [place] [address] Hemoglobin (Bld) [Mass/Vol] 12.1 g/dL Low 13.0-17.0 [facility] Comment on above: Performed By: #### L [id number] ####[facility] ([facility])[address] [place] [address] Immature granulocytes (Bld) [#/Vol] 0.05 10*3/uL Normal 0.00-0.20 [facility] Comment on above: Performed By: #### L [id number] ####[facility] (BEAKER)[address] [place] [address] Immature granulocytes/100 WBC (Bld) 0.7 % Normal 0.0-1.0 [facility] Comment on above: Performed By: #### L [id number] ####[facility] (BEAKER)[address] [place] [address] Lymphocytes (Bld) [#/Vol] 0.43 10*3/uL Low 1.20-4.0 0 [facility] Comment on above: Performed By: #### L [id number] ####[facility] (BEAKER)[address] [place] [address] Lymphocytes/100 WBC (Bld) 6.0 % Low 20.0-45.0 [facility] Comment on above: Performed By: #### L [id number] ####[facility] [place] [address] MCH (RBC) [Entitic mass] 32.1 pg Normal 27.0-33.0 [facility] Comment on above: Performed By: #### L [id number] ####[facility] (BEAKER)[address] [place] [address] MCV (RBC) [Entitic vol] 100.5 fL High 82.0-98.0 [facility] Comment on above: Performed By: #### L [id number] ####[facility] (BEAKER)[address] [place] [address] Monocytes (Bld) [#/Vol] 0.26 10*3/uL Normal 0.10-1.00 [facility] Comment on above: Performed By: #### L [id number] ####[facility] (BEAKER)[address] [place] [address] Monocytes/100 WBC (Bld) 3.6 % Low 5.0-12.0 [facility] Comment on above: Performed By: #### L [id number] ####[facility] (BEAKER)[address] [place] [address] Neutrophils (Bld) [#/Vol] 6.39 10*3/uL Normal 1.60-7.6 0 [facility] Comment on above: Performed By: #### L [id number] ####[facility] (BEAKER)[address] [place] [address] Neutrophils/100 WBC (Bld) 89.6 % High 40.0-72.0 [facility] Comment on above: Performed By: #### L [id number] ####[facility] ([facility])[address] [place] [address] NRBC (PER 100 WBCS) BY AUTOMATED COUNT 0.0 % Normal 0 [facility] Comment on above: Performed By: #### L [id number] ####[facility] ([facility])[address] [place] [address] PLATELETS (10*3/UL) IN BLOOD AUTOMATED COUNT 161 10*3/uL Normal 150-400 [facility] Comment on above: Performed By: #### L [id number] ####[facility] ([facility])[address] [place] [address] RBC (Bld) [#/Vol] 3.77 10*6/uL Low 4.20-5.70 [facility] Comment on above: Performed By: #### L [id number] ####[facility] ([facility])[address] [address] WBC (Bld) [#/Vol] 7.14 10*3/uL Normal 4.00-10.60 [facility] Comment on above: Performed By: #### L [id number] ####[facility] ([facility])[address] [address] CONSULTon 03-01-2024 CONSULT Normal [facility] MAGNESIUMon 03-01-2024 Magnesium [Mass/Vol] 2.1 mg/dL Normal 1.9-2.7 [facility] Comment on above: Performed By: #### L [id number] ####[facility] ([facility])[address] [place] [address] PHOSPHORUSon 03-01-2024 Magnesium [Mass/Vol] 2.3 mg/dL Low 2.5-5.0 [facility] Comment on above: Performed By: #### L [id number] ####[facility] ([facility])[address] [place] [address] PLATELET COUNTon 03-01-2024 PLATELETS (10*3/UL) IN BLOOD AUTOMATED COUNT 157 10*3/uL Normal 150-400 [facility] Comment on above: Performed By: #### L [id number] ####[facility] ([facility])[address] [place] [address] URINALYSIS WITH MICROSCOPICo n 03-01-2024 BILIRUBIN, TOTAL PRESENCE IN URINE Negative Normal Negative [facility] Comment on above: Performed By: #### L [id number] ####[facility] ([facility])[address] [place] [address] Clarity (U) Turbid Abnormal Clear [facility] Comment on above: Performed By: #### L [id number] ####[facility] ([facility])[address] [place] [address] Color (U) Yellow Normal Colorless, Yellow, Light[place] ow [facility] Comment on above: Performed By: #### L [id number] ####[facility] ([facility])[address] [place] [address] GLUCOSE (MG/DL) IN URINE Normal Normal Normal [facility] Comment on above: Performed By: #### L [id number] ####[facility] ([facility])[address] [place] [address] HEMOGLOBIN PRESENCE IN URINE Moderate Abnormal Negative [facility] Comment on above: Performed By: #### L [id number] ####[facility] ([facility])[address] [place] [address] Ketones Ql (U) Negative Normal Negative [facility] Comment on above: Performed By: #### L [id number] ####[facility] ([facility])[address] [place] [address] LEUKOCYTE ESTERASE PRESENCE IN URINE BY TEST STRIP Large Abnormal Negative [facility] Comment on above: Performed By: #### L [id number] ####[facility] ([facility])[address] [place] [address] MUCUS (#/LPF) IN URINE SEDIMENT Few Normal None Seen, Occasional , Few [facility] Comment on above: Performed By: #### L [id number] ####[facility] (BEAKER)[address] [place] [address] NITRITE PRESENCE IN URINE Negative Normal Negative [facility] Comment on above: Performed By: #### L [id number] ####[facility] (BEAKER)[address] [place] [address] pH (U) 5.5 [pH] Normal 5.0-8.0 [facility] Comment on above: Performed By: #### L [id number] ####[facility] (BEAKER)[address] [place] [address] Protein (U) [Mass/Vol] Negative Normal Negative [facility] Comment on above: Performed By: #### L [id number] ####[facility] (BEAKER)[address] [place] [address] RBC (#/HPF) IN URINE SEDIMENT >20 Abnormal None Seen, 0-2 [facility] Comment on above: Performed By: #### L [id number] ####[facility] (BEAKER)[address] [place] [address] Specific gravity (U) [Rel density] 1.012 Normal 1.010-1.03 0 [facility] Comment on above: Performed By: #### L [id number] ####[facility] (BEAKER)[address] [place] [address] SQUAMOUS EPITHELIAL CELLS (#/LPF) IN URINE SEDIMENT Many Abnormal None Seen, Occasional , Few [facility] Comment on above: Performed By: #### L [id number] ####[facility] (BEAKER)[address] [place] [address] UROBILINOGEN (MG/DL) IN URINE Normal Normal Normal [facility] Comment on above: Performed By: #### L [id number] ####[facility] (BEAKER)[address] [place] [address] WBC (LEUKOCYTE) (#/HPF) IN URINE SEDIMENT >50 Abnormal None Seen, 0-2 [facility] Comment on above: Performed By: #### L [id number] ####[facility] ([facility])[address] [place] [address] WBC (LEUKOCYTE) CLUMPS (#/HPF) IN URINE SEDIMENT Present Abnormal None Seen [facility] Comment on above: Performed By: #### L [id number] ####[facility] ([facility])[address] [place] [address] URINE CULTURE, ROUTINEon Ampicillin [Susc] 2 ug/ml Susceptible [facility] Comment on above: Performed By: #### L [id number] ####[facility] ([facility])[address] [place] [address] Nitrofurantoin [Susc] <=16 Susceptible Un [facility] Comment on above: Performed By: #### L [id number] ####[facility] ([facility])[address] [place] [address] Vancomycin [Susc] 1 ug/ml Susceptible [facility] Comment on above: Performed By: #### L [id number] ####[facility] ([facility])[address] [place] [address] B-TYPE NATRIURETIC PEPTIDEon 02-29-2024 Natriuretic peptide B (Bld) [Mass/Vol] 524 pg/mL High 0-100 [facility] Comment on above: Performed By: #### L [id number] ####[facility] ([facility])[address] [place] [address] BASIC METABOLIC PANELon 02-12 Anion gap [Moles/Vol] 10 mmol/L Normal 7-20 [facility] Comment on above: Performed By: #### L [id number] ####[facility] ([facility])[address] [facility] [address] Calcium [Mass/Vol] 8.6 mg/dL Normal 8.6-10.3 [facility] Comment on above: Performed By: #### L [id number] ####[facility] ([facility])[address] [place] [address] Chloride [Moles/Vol] 104 mmol/L Normal 98-107 [facility] Comment on above: Performed By: #### L [id number] ####[facility] ([facility])[address] [place] [address] CO2 [Moles/Vol] 30 mmol/L Normal 21-31 [facility] Comment on above: Performed By: #### L [id number] ####[facility] ([facility])[address] [place] [address] Creatinine [Mass/Vol] 0.99 mg/dL Normal 0.70-1.30 [facility] Comment on above: Performed By: #### L [id number] ####[facility] ([facility])[address] [place] [address] GLOMERULAR FILTRATION RATE ML/MIN/1.73 SQ M.PREDICTED 78.0 mL/min/1.73m*2 Normal >60.0 [facility] Comment on above: Result Comment: The [facility]???s estimated glomerular filtration rate (eGFR) will no [...] of individuals. Performed By: #### L [id number] ####[facility] ([facility])[address] [place] [address] Glucose [Mass/Vol] 134 mg/dL High 70-100 [facility] Comment on above: Performed By: #### L [id number] ####[facility] ([facility])[address] [place] [address] Potassium [Moles/Vol] 3.4 mmol/L Low 3.5-5.1 [facility] Comment on above: Performed By: #### L [id number] ####[facility] ([facility]AKER)[address] [place] [address] Sodium [Moles/Vol] 141 mmol/L Normal 136-145 [facility] Comment on above: Performed By: #### L [id number] ####[facility] (BEAKER)[address] [place] [address] Urea nitrogen [Mass/Vol] 24 mg/dL Normal 7-25 [facility] Comment on above: Performed By: #### L [id number] ####[facility] (BEAKER)[address] [place] [address] UREA NITROGEN/CREATININE (MASS RATIO) IN SER/PLAS 24.2 Normal [facility] Comment on above: Performed By: #### L [id number] ####[facility] (BEAKER)[address] [place] [address] Anion gap [Moles/Vol] 10 mmol/L Normal 7-20 [facility] Comment on above: Performed By: #### L [id number] ####[facility] (BEAKER)[address] [place] [address] Calcium [Mass/Vol] 8.4 mg/dL Low 8.6-10.3 [facility] Comment on above: Performed By: #### L [id number] ####[facility] (BEAKER)[address] [place] [address] Chloride [Moles/Vol] 105 mmol/L Normal 98-107 [facility] Comment on above: Performed By: #### L [id number] ####[facility] (BEAKER)[address] [place] [address] CO2 [Moles/Vol] 28 mmol/L Normal 21-31 [facility] Comment on above: Performed By: #### L [id number] ####[facility] (BEAKER)[address] [place] [address] Creatinine [Mass/Vol] 1.06 mg/dL Normal 0.70-1.30 [facility] Comment on above: Performed By: #### L [id number] ####[facility] ([facility])[address] [place] [address] GLOMERULAR FILTRATION RATE ML/MIN/1.73 SQ M.PREDICTED 71.8 mL/min/1.73m*2 Normal >60.0 [facility] Comment on above: Result Comment: The [facility]???s estimated glomerular filtration rate (eGFR) will no [...] of individuals. Performed By: #### L [id number] ####[facility] ([facility])[address] [place] [address] Glucose [Mass/Vol] 141 mg/dL High 70-100 [facility] Comment on above: Performed By: #### L [id number] ####[facility] ([facility])[address] [place] [address] Potassium [Moles/Vol] 3.5 mmol/L Normal 3.5-5.1 [facility] Comment on above: Performed By: #### L [id number] ####[facility] ([facility])[address] [place] [address] Sodium [Moles/Vol] 139 mmol/L Normal 136-145 [facility] Comment on above: Performed By: #### L [id number] ####[facility] ([facility])[address] [facility] [address] Urea nitrogen [Mass/Vol] 23 mg/dL Normal 7-25 [facility] Comment on above: Performed By: #### L [id number] ####[facility] [place] [address] UREA NITROGEN/CREATININE (MASS RATIO) IN SER/PLAS 21.7 Normal [facility] Comment on above: Performed By: #### L [id number] ####[facility] [place] [address] CBC WITH AUTO DIFFERENTIALon 02-29-2024 Basophils (Bld) [#/Vol] 0.01 10*3/uL Normal 0.00-0.20 [facility] Comment on above: Performed By: #### L [id number] ####[facility] ([facility])[address] [place] [address] Basophils/100 WBC (Bld) 0.2 % Normal 0.0-1.0 [facility] Comment on above: Performed By: #### L [id number] ####[facility] ([facility])[address] [place] [address] Eosinophils (Bld) [#/Vol] 0.00 10*3/uL Normal 0.00-0.5 0 [facility] Comment on above: Performed By: #### L [id number] ####[facility] ([facility])[address] [place] [address] Eosinophils/100 WBC (Bld) 0.0 % Normal 0.0-6.0 [facility] Comment on above: Performed By: #### L [id number] ####[facility] [place] [address] Erythrocyte distribution width (RBC) [Ratio] 12.8 % Normal 11.5-15.0 [facility] Comment on above: Performed By: #### L [id number] ####[facility] [place] [address] ERYTHROCYTE MEAN CORPUSCULAR HEMOGLOBIN CONCENTRATION (G/DL) BY AUTOMATED 32.0 g/dL Normal 32.0-35.0 [facility] Comment on above: Performed By: #### L [id number] ####[facility] (BEAKER)[address] [place] [address] Hematocrit (Bld) [Volume fraction] 38.7 % Low 39.0-55.0 [facility] Comment on above: Performed By: #### L [id number] ####[facility] (BEAKER)[address] [place] [address] Hemoglobin (Bld) [Mass/Vol] 12.4 g/dL Low 13.0-17.0 [facility] Comment on above: Performed By: #### L [id number] ####[facility] (AKER)[address] [place] [address] Immature granulocytes (Bld) [#/Vol] 0.04 10*3/uL Normal 0.00-0.20 [facility] Comment on above: Performed By: #### L [id number] ####[facility] (BEAKER)[address] [place] [address] Immature granulocytes/100 WBC (Bld) 0.7 % Normal 0.0-1.0 [facility] Comment on above: Performed By: #### L [id number] ####[facility] (BEAKER)[address] [place] [address] IMMATURE PLATELET FRACTION % 4.9 % Normal 0.8-6.3 [facility] Comment on above: Performed By: #### L [id number] ####[facility] (BEAKER)[address] [place] [address] Lymphocytes (Bld) [#/Vol] 0.38 10*3/uL Low 1.20-4.0 0 [facility] Comment on above: Performed By: #### L [id number] ####[facility] (BEAKER)[address] [place] [address] Lymphocytes/100 WBC (Bld) 6.2 % Low 20.0-45.0 [facility] Comment on above: Performed By: #### L [id number] ####[facility] (BEAKER)[address] [place] [address] MCH (RBC) [Entitic mass] 32.0 pg Normal 27.0-33.0 [facility] Comment on above: Performed By: #### L [id number] ####[facility] [place] [address] MCV (RBC) [Entitic vol] 100.0 fL High 82.0-98.0 [facility] Comment on above: Performed By: #### L [id number] ####[facility] ([facility])[address] [place] [address] Monocytes (Bld) [#/Vol] 0.35 10*3/uL Normal 0.10-1.00 [facility] Comment on above: Performed By: #### L [id number] ####[facility] ([facility])[address] [place] [address] Monocytes/100 WBC (Bld) 5.7 % Normal 5.0-12.0 [facility] Comment on above: Performed By: #### L [id number] ####[facility] [place] [address] Neutrophils (Bld) [#/Vol] 5.36 10*3/uL Normal 1.60-7.6 0 [facility] Comment on above: Performed By: #### L [id number] ####[facility] (BEAKER)[address] [place] [address] Neutrophils/100 WBC (Bld) 87.2 % High 40.0-72.0 [facility] Comment on above: Performed By: #### L [id number] ####[facility] (BEAKER)[address] [place] [address] NRBC (PER 100 WBCS) BY AUTOMATED COUNT 0.0 % Normal 0 [facility] Comment on above: Performed By: #### L [id number] ####[facility] (BEAKER)[address] [place] [address] PLATELETS (10*3/UL) IN BLOOD AUTOMATED COUNT 122 10*3/uL Low 150-400 [facility] Comment on above: Performed By: #### L [id number] ####[facility] ([facility])[address] [place] [address] RBC (Bld) [#/Vol] 3.87 10*6/uL Low 4.20-5.70 [facility] Comment on above: Performed By: #### L [id number] ####[facility] ([facility])[address] [place] [address] WBC (Bld) [#/Vol] 6.14 10*3/uL Normal 4.00-10.60 [facility] Comment on above: Performed By: #### L [id number] ####[facility] ([facility])[address] [place] [address] CONSULTon 02-29-2024 CONSULT Normal [facility] LEGIONELLA ANTIGEN, URINEon 02-29-2024 LEGIONELLA AG, UR Negative Normal NEG [facility] Comment on above: Result Comment: L. p neumophila serogroup 1 antigen not detected.A negative result does not exclude infection with Leginella pnemophila serogroup 1 nor does it rule out other microbial-caused respiratory infections of disease caused by other serogroups of Legionella pneumophila.Test [facility] [address] [address] - Released 03/01/2024 15:07 Performed By: #### L [id number] ####[facility] [id number] [place] [address] MAGNESIUMon 02-29-2024 Magnesium [Mass/Vol] 2.0 mg/dL Normal 1.9-2.7 [facility] Comment on above: Performed By: #### L [id number] ####[facility] ([facility])[address] [place] [address] Magnesium [Mass/Vol] 1.9 mg/dL Normal 1.9-2.7 [facility] Comment on above: Performed By: #### L [id number] ####[facility] ([facility])[address] [place] [address] PHOSPHORUSon 02-29-2024 Magnesium [Mass/Vol] 2.4 mg/dL Low 2.5-5.0 [facility] Comment on above: Performed By: #### L [id number] ####[facility] ([facility])[address] [place] [address] RESPIRATORY VIRUS PCR PANELo n 02-29-2024 ADENOVIRUS DETECTION BY PCR Not detected Normal Not Detected [facility] Comment on above: Order Comment: Testi ng methodology is a multiplexed nucleic acid test intended for the simultaneous qualitative detection and differentiation of nucleic acids from multiple viral and bacterial respiratory organisms in nasopharyngeal swabs (PHYSICIAN IN PRIVATE PRACTICE). Performed By: #### L [id number] ####[facility] ([facility])[address] [place] [address] B. PARAPERTUSSIS DNA Not detected Normal Not Detected [facility] Comment on above: Order Comment: Testi ng methodology is a multiplexed nucleic acid test intended for the simultaneous qualitative detection and differentiation of nucleic acids from multiple viral and bacterial respiratory organisms in nasopharyngeal swabs (PHYSICIAN IN PRIVATE PRACTICE). Performed By: #### L [id number] ####[facility] ([facility])[address] [place] [address] BORDETELLA PERTUSSIS DNA PRESENCE IN UNSPECIFIED SPECIMEN BY MT* Not detected Normal Not Detected [facility] Comment on above: Order Comment: Testi ng methodology is a multiplexed nucleic acid test intended for the simultaneous qualitative detection and differentiation of nucleic acids from multiple viral and bacterial respiratory organisms in nasopharyngeal swabs (PHYSICIAN IN PRIVATE PRACTICE). Performed By: #### L [id number] ####[facility] ([facility])[address] [place] [address] CHLAMYDOPHILA PNEUMONIAE Not detected Normal Not Detected [facility] Comment on above: Order Comment: Testi ng methodology is a multiplexed nucleic acid test intended for the simultaneous qualitative detection and differentiation of nucleic acids from multiple viral and bacterial respiratory organisms in nasopharyngeal swabs (PHYSICIAN IN PRIVATE PRACTICE). Performed By: #### L [id number] ####[facility] ([facility])[address] [place] [address] CORONAVIRUS [id number] Not detected Normal Not Detected [facility] Comment on above: Order Comment: Testi ng methodology is a multiplexed nucleic acid test intended for the simultaneous qualitative detection and differentiation of nucleic acids from multiple viral and bacterial respiratory organisms in nasopharyngeal swabs (PHYSICIAN IN PRIVATE PRACTICE). Performed By: #### L [id number] ####[facility] ([facility])[address] [place] [address] CORONAVIRUS [id number] Not detected Normal Not Detected [facility] Comment on above: Order Comment: Testi ng methodology is a multiplexed nucleic acid test intended for the simultaneous qualitative detection and differentiation of nucleic acids from multiple viral and bacterial respiratory organisms in nasopharyngeal swabs (PHYSICIAN IN PRIVATE PRACTICE). Performed By: #### L [id number] ####[facility] ([facility])[address] [place] [address] CORONAVIRUS [id number] Not detected Normal Not Detected [facility] Comment on above: Order Comment: Testi ng methodology is a multiplexed nucleic acid test intended for the simultaneous qualitative detection and differentiation of nucleic acids from multiple viral and bacterial respiratory organisms in nasopharyngeal swabs (PHYSICIAN IN PRIVATE PRACTICE). Performed By: #### L [id number] ####[facility] ([facility])[address] [place] [address] CORONAVIRUS [id number] Not detected Normal Not Detected [facility] Comment on above: Order Comment: Testi ng methodology is a multiplexed nucleic acid test intended for the simultaneous qualitative detection and differentiation of nucleic acids from multiple viral and bacterial respiratory organisms in nasopharyngeal swabs (PHYSICIAN IN PRIVATE PRACTICE). Performed By: #### L [id number] ####[facility] ([facility])[address] [place] [address] HUMAN METAPNEUMOVIRUS Not detected Normal Not Detected [facility] Comment on above: Order Comment: Testi ng methodology is a multiplexed nucleic acid test intended for the simultaneous qualitative detection and differentiation of nucleic acids from multiple viral and bacterial respiratory organisms in nasopharyngeal swabs (PHYSICIAN IN PRIVATE PRACTICE). Performed By: #### L [id number] ####[facility] ([facility])[address] [place] [address] HUMAN RHINOVIRUS+ENTEROVIRUS Not detected Normal Not Detected [facility] Comment on above: Order Comment: Testi ng methodology is a multiplexed nucleic acid test intended for the simultaneous qualitative detection and differentiation of nucleic acids from multiple viral and bacterial respiratory organisms in nasopharyngeal swabs (PHYSICIAN IN PRIVATE PRACTICE). Performed By: #### L [id number] ####[facility] ([facility])[address] [place] [address] INFLUENZA A Not detected Normal Not Detected [facility] Comment on above: Order Comment: Testi ng methodology is a multiplexed nucleic acid test intended for the simultaneous qualitative detection and differentiation of nucleic acids from multiple viral and bacterial respiratory organisms in nasopharyngeal swabs (PHYSICIAN IN PRIVATE PRACTICE). Performed By: #### L [id number] ####[facility] ([facility])[address] [place] [address] INFLUENZA B Not detected Normal Not Detected [facility] Comment on above: Order Comment: Testi ng methodology is a multiplexed nucleic acid test intended for the simultaneous qualitative detection and differentiation of nucleic acids from multiple viral and bacterial respiratory organisms in nasopharyngeal swabs (PHYSICIAN IN PRIVATE PRACTICE). Performed By: #### L [id number] ####[facility] ([facility])[address] [place] [address] MYCOPLASMA PNEUMONIAE Not detected Normal Not Detected [facility] Comment on above: Order Comment: Testi ng methodology is a multiplexed nucleic acid test intended for the simultaneous qualitative detection and differentiation of nucleic acids from multiple viral and bacterial respiratory organisms in nasopharyngeal swabs (PHYSICIAN IN PRIVATE PRACTICE). Performed By: #### L [id number] ####[facility] ([facility])[address] [place] [address] PARAINFLUENZA 1 Not detected Normal Not Detected [facility] Comment on above: Order Comment: Testi ng methodology is a multiplexed nucleic acid test intended for the simultaneous qualitative detection and differentiation of nucleic acids from multiple viral and bacterial respiratory organisms in nasopharyngeal swabs (PHYSICIAN IN PRIVATE PRACTICE). Performed By: #### L [id number] ####[facility] ([facility])[address] [place] [address] PARAINFLUENZA 2 Not detected Normal Not Detected [facility] Comment on above: Order Comment: Testi ng methodology is a multiplexed nucleic acid test intended for the simultaneous qualitative detection and differentiation of nucleic acids from multiple viral and bacterial respiratory organisms in nasopharyngeal swabs (PHYSICIAN IN PRIVATE PRACTICE). Performed By: #### L [id number] ####[facility] ([facility])[address] [place] [address] PARAINFLUENZA 3 Not detected Normal Not Detected [facility] Comment on above: Order Comment: Testi ng methodology is a multiplexed nucleic acid test intended for the simultaneous qualitative detection and differentiation of nucleic acids from multiple viral and bacterial respiratory organisms in nasopharyngeal swabs (PHYSICIAN IN PRIVATE PRACTICE). Performed By: #### L [id number] ####[facility] ([facility])[address] [place] [address] PARAINFLUENZA 4 Not detected Normal Not Detected [facility] Comment on above: Order Comment: Testi ng methodology is a multiplexed nucleic acid test intended for the simultaneous qualitative detection and differentiation of nucleic acids from multiple viral and bacterial respiratory organisms in nasopharyngeal swabs (PHYSICIAN IN PRIVATE PRACTICE). Performed By: #### L [id number] ####[facility] ([facility])[address] [place] [address] RESP SYNCYTIAL VIRUS Not detected Normal Not Detected [facility] Comment on above: Order Comment: Testi ng methodology is a multiplexed nucleic acid test intended for the simultaneous qualitative detection and differentiation of nucleic acids from multiple viral and bacterial respiratory organisms in nasopharyngeal swabs (PHYSICIAN IN PRIVATE PRACTICE). Performed By: #### L [id number] ####[facility] ([facility])[address] [place] [address] SARS-CoV-2 (COVID-19) RNA TAI+probe Ql (Unsp spec) Not detected Normal Not Detected [facility] Comment on above: Order Comment: Testi ng methodology is a multiplexed nucleic acid test intended for the simultaneous qualitative detection and differentiation of nucleic acids from multiple viral and bacterial respiratory organisms in nasopharyngeal swabs (PHYSICIAN IN PRIVATE PRACTICE). Performed By: #### L [id number] ####[facility] ([facility])[address] [place] [address] ANTI-XA (HEPARIN LEVEL)on HEPARIN UNFRACTIONATED (U/ML) IN PPP BY CHROMOGENIC METHOD <0.10 Invalid Interpretation Code 0.3-0.7 [facility] Comment on above: Order Comment: Check anti-Xa level every 6 hours while on heparin infusion, or per protocol. Result Comment: [place] roxaban and Apixaban will interfere with the anti Xa assay used to monitor UFH and LMWH. Performed By: #### L [id number] ####[facility] (BEAKER)[address] [place] [address] BASIC METABOLIC PANELon 10- Anion gap [Moles/Vol] 10 mmol/L Normal 7-20 [facility] Comment on above: Performed By: #### L [id number] ####[facility] [place] [address] Calcium [Mass/Vol] 8.0 mg/dL Low 8.6-10.3 [facility] Comment on above: Performed By: #### L [id number] ####[facility] ([facility] [place] [address] Chloride [Moles/Vol] 102 mmol/L Normal 98-107 [facility] Comment on above: Performed By: #### L [id number] ####[facility] ([facility])[address] [place] [address] CO2 [Moles/Vol] 30 mmol/L Normal 21-31 [facility] Comment on above: Performed By: #### L [id number] ####[facility] ([facility])[address] [place] [address] Creatinine [Mass/Vol] 1.22 mg/dL Normal 0.70-1.30 [facility] Comment on above: Performed By: #### L [id number] ####[facility] ([facility])[address] [place] [address] GLOMERULAR FILTRATION RATE ML/MIN/1.73 SQ M.PREDICTED 60.7 mL/min/1.73m*2 Normal >60.0 U [facility] Comment on above: Result Comment: The [facility]???s estimated glomerular filtration rate (eGFR) will no [...] of individuals. Performed By: #### L [id number] ####[facility] ([facility])[address] [place] [address] Glucose [Mass/Vol] 94 mg/dL Normal 70-100 [facility] Comment on above: Performed By: #### L [id number] ####[facility] ([facility])[address] [place] [address] Potassium [Moles/Vol] 3.0 mmol/L Low 3.5-5.1 [facility] Comment on above: Performed By: #### L [id number] ####[facility] ([facility])[address] [place] [address] Sodium [Moles/Vol] 139 mmol/L Normal 136-145 [facility] Comment on above: Performed By: #### L [id number] ####[facility] ([facility])[address] [place] [address] Urea nitrogen [Mass/Vol] 16 mg/dL Normal 7-25 [facility] Comment on above: Performed By: #### L [id number] ####[facility] ([facility])[address] [place] [address] UREA NITROGEN/CREATININE (MASS RATIO) IN SER/PLAS 13.1 Normal [facility] Comment on above: Performed By: #### L [id number] ####[facility] ([facility])[address] [place] [address] CBC WITH AUTO DIFFERENTIALon 02-28-2024 Basophils (Bld) [#/Vol] 0.03 10*3/uL Normal 0.00-0.20 [facility] Comment on above: Performed By: #### L [id number] ####[facility] ([facility])[address] [place] [address] Basophils/100 WBC (Bld) 0.3 % Normal 0.0-1.0 [facility] Comment on above: Performed By: #### L [id number] ####[facility] (BEAKER)[address] [place] [address] Eosinophils (Bld) [#/Vol] 0.00 10*3/uL Normal 0.00-0.5 0 [facility] Comment on above: Performed By: #### L [id number] ####[facility] (BEAKER)[address] [place] [address] Eosinophils/100 WBC (Bld) 0.0 % Normal 0.0-6.0 [facility] Comment on above: Performed By: #### L [id number] ####[facility] ([facility] [place] [address] Erythrocyte distribution width (RBC) [Ratio] 13.0 % Normal 11.5-15.0 [facility] Comment on above: Performed By: #### L [id number] ####[facility] ([facility])[address] [place] [address] ERYTHROCYTE MEAN CORPUSCULAR HEMOGLOBIN CONCENTRATION (G/DL) BY AUTOMATED 32.3 g/dL Normal 32.0-35.0 [facility] Comment on above: Performed By: #### L [id number] ####[facility] ([facility])[address] [place] [address] Hematocrit (Bld) [Volume fraction] 37.5 % Low 39.0-55.0 [facility] Comment on above: Performed By: #### L [id number] ####[facility] [place] [address] Hemoglobin (Bld) [Mass/Vol] 12.1 g/dL Low 13.0-17.0 [facility] Comment on above: Performed By: #### L [id number] ####[facility] ([facility]ER)[address] [place] [address] Immature granulocytes (Bld) [#/Vol] 0.06 10*3/uL Normal 0.00-0.20 [facility] Comment on above: Performed By: #### L [id number] ####[facility] ([facility]ER)[address] [place] [address] Immature granulocytes/100 WBC (Bld) 0.6 % Normal 0.0-1.0 [facility] Comment on above: Performed By: #### L [id number] ####[facility] ([facility]ER)[address] [place] [address] Lymphocytes (Bld) [#/Vol] 0.56 10*3/uL Low 1.20-4.0 0 [facility] Comment on above: Performed By: #### L [id number] ####[facility] ([facility]ER)[address] [place] [address] Lymphocytes/100 WBC (Bld) 6.1 % Low 20.0-45.0 [facility] Comment on above: Performed By: #### L [id number] ####[facility] ([facility]ER)[address] [place] [address] MCH (RBC) [Entitic mass] 32.3 pg Normal 27.0-33.0 [facility] Comment on above: Performed By: #### L [id number] ####[facility] ([facility]ER)[address] [place] [address] MCV (RBC) [Entitic vol] 100.0 fL High 82.0-98.0 U [facility] Comment on above: Performed By: #### L [id number] ####[facility] ([facility]ER)[address] [place] [address] Monocytes (Bld) [#/Vol] 1.19 10*3/uL High 0.10-1.00 [facility] Comment on above: Performed By: #### L [id number] ####[facility] ([facility]ER)[address] [place] [address] Monocytes/100 WBC (Bld) 12.9 % High 5.0-12.0 U [facility] Comment on above: Performed By: #### L [id number] ####[facility] (BE[facility]ER)[address] [place] [address] Neutrophils (Bld) [#/Vol] 7.41 10*3/uL Normal 1.60-7.6 0 [facility] Comment on above: Performed By: #### L [id number] ####[facility] (BEAKER)[address] [place] [address] Neutrophils/100 WBC (Bld) 80.1 % High 40.0-72.0 [facility] Comment on above: Performed By: #### L [id number] ####[facility] [place] [place] [address] NRBC (PER 100 WBCS) BY AUTOMATED COUNT 0.0 % Normal 0 [facility] Comment on above: Performed By: #### L [id number] ####[facility] ([facility] [place] [place] [address] PLATELETS (10*3/UL) IN BLOOD AUTOMATED COUNT 146 10*3/uL Low 150-400 [facility] Comment on above: Performed By: #### L [id number] ####[facility] ([facility] [place] [address] RBC (Bld) [#/Vol] 3.75 10*6/uL Low 4.20-5.70 [facility] Comment on above: Performed By: #### L [id number] ####[facility] (BEAKER)[address] [place] [address] WBC (Bld) [#/Vol] 9.25 10*3/uL Normal 4.00-10.60 [facility] Comment on above: Performed By: #### L [id number] ####[facility] (BEAKER)[address] [place] [address] MAGNESIUMon 02-28-2024 Magnesium [Mass/Vol] 1.5 mg/dL Low 1.9-2.7 [facility] Comment on above: Performed By: #### L [id number] ####[facility] (BEAKER)[address] [place] [address] PHOSPHORUSon 02-28-2024 Magnesium [Mass/Vol] 2.7 mg/dL Normal 2.5-5.0 [facility] Comment on above: Performed By: #### L [id number] ####[facility] (BE[facility])[address] [place] [address] PROCALCITONIN TESTon 024 PROCALCITONIN IN BLOOD 3.55 ng/mL Critically high 0.00-0.1 0 [facility] Comment on above: Result Comment: Susp ected [...] and initial PCT<0.5ng/mL Performed By: #### L [id number] ####[facility] ([facility]AKER)[address] [place] [address] URINALYSIS WITH MICROSCOPICo n 02-28-2024 BILIRUBIN, TOTAL PRESENCE IN URINE Negative Normal Negative [facility] Comment on above: Performed By: #### L [id number] ####[facility] ([facility]ER)[address] [place] [address] Clarity (U) Cloudy Abnormal Clear [facility] Comment on above: Performed By: #### L [id number] ####[facility] ([facility]ER)[address] [place] [address] Color (U) Yellow Normal Colorless, Yellow, [place] ow [facility] Comment on above: Performed By: #### L [id number] ####[facility] ([facility]ER)[address] [place] [address] GLUCOSE (MG/DL) IN URINE Normal Normal Normal [facility] Comment on above: Performed By: #### L [id number] ####[facility] ([facility])[address] [place] [address] HEMOGLOBIN PRESENCE IN URINE Moderate Abnormal Negative [facility] Comment on above: Performed By: #### L [id number] ####[facility] ([facility])[address] [place] [address] Ketones Ql (U) Negative Normal Negative [facility] Comment on above: Performed By: #### L [id number] ####[facility] ([facility]ER)[address] [place] [address] LEUKOCYTE ESTERASE PRESENCE IN URINE BY TEST STRIP Large Abnormal Negative [facility] Comment on above: Performed By: #### L [id number] ####[facility] ([facility]ER)[address] [place] [address] MUCUS (#/LPF) IN URINE SEDIMENT Occasional Normal None Seen, Occasional , Few [facility] Comment on above: Performed By: #### L [id number] ####[facility] ([facility]ER)[address] [place] [address] NITRITE PRESENCE IN URINE Negative Normal Negative [facility] Comment on above: Performed By: #### L [id number] ####[facility] ([facility])[address] [place] [address] pH (U) 6.0 [pH] Normal 5.0-8.0 [facility] Comment on above: Performed By: #### L [id number] ####[facility] ([facility])[address] [place] [address] Protein (U) [Mass/Vol] 30 mg/dL Abnormal Negative [facility] on above: Performed By: #### L [id number] ####[facility] ([facility])[address] [place] [address] RBC (#/HPF) IN URINE SEDIMENT 11-20 Abnormal None Seen, 0-2 [facility] Comment on above: Performed By: #### L [id number] ####[facility] ([facility]ER)[address] [place] [address] Specific gravity (U) [Rel density] 1.018 Normal 1.010-1.03 0 [facility] Comment on above: Performed By: #### L [id number] ####[facility] ([facility]ER)[address] [place] [address] SQUAMOUS EPITHELIAL CELLS (#/LPF) IN URINE SEDIMENT Few Normal None Seen, Occasional , Few [facility] Comment on above: Performed By: #### L [id number] ####[facility] ([facility])[address] [place] [address] UROBILINOGEN (MG/DL) IN URINE Normal Normal Normal [facility] Comment on above: Performed By: #### L [id number] ####[facility] ([facility]ER)[address] [place] [address] WBC (LEUKOCYTE) (#/HPF) IN URINE SEDIMENT >50 Abnormal None Seen, 0-2 [facility] Comment on above: Performed By: #### L [id number] ####[facility] ([facility])[address] [place] [address] WBC (LEUKOCYTE) CLUMPS (#/HPF) IN URINE SEDIMENT Present Abnormal None Seen [facility] Comment on above: Performed By: #### L [id number] ####[facility] ([facility]ER)[address] [place] [address] YEAST, BUDDING (#/HPF) IN URINE Occasional Abnormal None Seen [facility] Comment on above: Performed By: #### L [id number] ####[facility] ([facility]ER)[address] [place] [address] VENOUS BLOOD GAS WITH IONIZE D CALCIUMon 02-28-2024 Base excess Calc (BldV) [Moles/Vol] 3.8 mmol/L Normal [facility] Comment on above: Order Comment: Bipap 16/8 RR 14 FiO2 75% Performed By: #### L [id number] ####[facility] [id number] [place] [address] [facility] CALCIUM IONIZED (MMOL/L) IN BLOOD 1.06 mmol/L Low 1.15-1.33 [facility] Comment on above: Order Comment: Bipap 16/8 RR 14 FiO2 75% Performed By: #### L [id number] ####[facility] [id number] [place] [address] [place] CO2 (BldV) [Partial pressure] 46 mm[Hg] Normal 40-50 [facility] Comment on above: Order Comment: Bipap 16/8 RR 14 FiO2 75% Performed By: #### L [id number] ####[facility] [id number] [place] [address] [place] HCO3 (Bld) [Moles/Vol] 29.2 mmol/L Normal [facility] Comment on above: Order Comment: Bipap 16/8 RR 14 FiO2 75% Performed By: #### L [id number] ####[facility] [id number] [place] [address] [place] Oxygen (BldV) [Partial pressure] 47 mm[Hg] High 35-45 [facility] Comment on above: Order Comment: Bipap 16/8 RR 14 FiO2 75% Performed By: #### L [id number] ####[facility] [id number] [place] [address] [place] OXYGEN SATURATION (%) IN VENOUS BLOOD 78.8 % High 65.0-75.0 [facility] Comment on above: Order Comment: Bipap 16/8 RR 14 FiO2 75% Performed By: #### L [id number] ####[facility] [id number] [place] [address] [facility] PH OF VENOUS BLOOD 7.41 Normal 7.31-7.41 [facility] Comment on above: Order Comment: Bipap 28/12 RR 14 FiO2 75% Performed By: #### L [id number] ####[facility] [id number] [place] [address] [place] 30on 02-27-2024 30 Normal [facility] 30 Normal [facility] ANESon 02-27-2024 ANES Normal [facility] ANTI-XA (HEPARIN LEVEL)on HEPARIN UNFRACTIONATED (U/ML) IN PPP BY CHROMOGENIC METHOD 0.51 IU/mL Normal 0.3-0.7 [facility] Comment on above: Result Comment: [place] roxaban and Apixaban will interfere with the anti Xa assay used to monitor UFH and LMWH. Performed By: #### L [id number] ####[facility] (BEAKER)[address] [place] [address] HEPARIN UNFRACTIONATED (U/ML) IN PPP BY CHROMOGENIC METHOD 0.28 IU/mL Low 0.3-0.7 [facility] Comment on above: Order Comment: Check anti-Xa level every 6 hours while on heparin infusion, or per protocol. Result Comment: [place] roxaban and Apixaban will interfere with the anti Xa assay used to monitor UFH and LMWH. Performed By: #### L [id number] ####[facility] (BEAKER)[address] [place] [address] HEPARIN UNFRACTIONATED (U/ML) IN PPP BY CHROMOGENIC METHOD 0.21 IU/mL Low 0.3-0.7 [facility] Comment on above: Result Comment: [place] roxaban and Apixaban will interfere with the anti Xa assay used to monitor UFH and LMWH. Performed By: #### L [id number] ####[facility] (BEAKER)[address] [place] [address] BASIC METABOLIC PANELon 02-12 Anion gap [Moles/Vol] 9 mmol/L Normal 7-20 [facility] Comment on above: Performed By: #### L [id number] ####[facility] ([facility])[address] [place] [address] Calcium [Mass/Vol] 8.4 mg/dL Low 8.6-10.3 [facility] Comment on above: Performed By: #### L [id number] ####[facility] ([facility])[address] [place] [address] Chloride [Moles/Vol] 105 mmol/L Normal 98-107 [facility] Comment on above: Performed By: #### L [id number] ####[facility] ([facility])[address] [place] [address] CO2 [Moles/Vol] 27 mmol/L Normal 21-31 [facility] Comment on above: Performed By: #### L [id number] ####[facility] ([facility])[address] [place] [address] Creatinine [Mass/Vol] 0.88 mg/dL Normal 0.70-1.30 [facility] Comment on above: Performed By: #### L [id number] ####[facility] ([facility])[address] [place] [address] GLOMERULAR FILTRATION RATE ML/MIN/1.73 SQ M.PREDICTED 88.0 mL/min/1.73m*2 Normal >60.0 U [facility] Comment on above: Result Comment: The [facility]???s estimated glomerular filtration rate (eGFR) will no [...] of individuals. Performed By: #### L [id number] ####[facility] ([facility])[address] [place] [address] Glucose [Mass/Vol] 116 mg/dL High 70-100 [facility] Comment on above: Performed By: #### L [id number] ####[facility] ([facility])[address] [place] [address] Potassium [Moles/Vol] 3.8 mmol/L Normal 3.5-5.1 [facility] Comment on above: Performed By: #### L [id number] ####[facility] ([facility])[address] [place] [address] Sodium [Moles/Vol] 137 mmol/L Normal 136-145 [facility] Comment on above: Performed By: #### L [id number] ####[facility] ([facility])[address] [place] [address] Urea nitrogen [Mass/Vol] 11 mg/dL Normal 7-25 [facility] Comment on above: Performed By: #### L [id number] ####[facility] ([facility])[address] [place] [address] UREA NITROGEN/CREATININE (MASS RATIO) IN SER/PLAS 12.5 Normal [facility] Comment on above: Performed By: #### L [id number] ####[facility] ([facility])[address] [place] [address] BLOOD CULTUREon 02-27-2024 Bacteria identified Cx Nom (Bld) No growth at 5 days Normal [facility] Comment on above: Performed By: #### L [id number] ####[facility] ([facility])[address] [place] [address] CALCIUM, IONIZEDon CALCIUM IONIZED (MMOL/L) IN BLOOD 1.20 mmol/L Normal 1.15-1.33 [facility] Comment on above: Performed By: #### C ALCIUM, IONIZED ####[facility] RESP[facility] [id number] [place] [address] [place] CBC WITH AUTO DIFFERENTIALon 02-27-2024 Basophils (Bld) [#/Vol] 0.02 10*3/uL Normal 0.00-0.20 [facility] Comment on above: Performed By: #### L [id number] ####[facility] LAB (BEAKER)[address] [place] [address] Basophils/100 WBC (Bld) 0.4 % Normal 0.0-1.0 [facility] Comment on above: Performed By: #### L [id number] ####[facility] (BEAKER)[address] [place] [address] Eosinophils (Bld) [#/Vol] 0.03 10*3/uL Normal 0.00-0.5 0 [facility] Comment on above: Performed By: #### L [id number] ####[facility] (BEAKER)[address] [place] [address] Eosinophils/100 WBC (Bld) 0.7 % Normal 0.0-6.0 [facility] Comment on above: Performed By: #### L [id number] ####[facility] (BEAKER)[address] [place] [address] Erythrocyte distribution width (RBC) [Ratio] 13.1 % Normal 11.5-15.0 [facility] Comment on above: Performed By: #### L [id number] ####[facility] (BEAKER)[address] [place] [address] ERYTHROCYTE MEAN CORPUSCULAR HEMOGLOBIN CONCENTRATION (G/DL) BY AUTOMATED 31.8 g/dL Low 32.0-35.0 [facility] Comment on above: Performed By: #### L [id number] ####[facility] (BEAKER)[address] [place] [address] Hematocrit (Bld) [Volume fraction] 37.7 % Low 39.0-55.0 [facility] Comment on above: Performed By: #### L [id number] ####[facility] (BEAKER)[address] [place] [address] Hemoglobin (Bld) [Mass/Vol] 12.0 g/dL Low 13.0-17.0 [facility] Comment on above: Performed By: #### L [id number] ####[facility] ([facility])[address] [place] [address] Immature granulocytes (Bld) [#/Vol] 0.02 10*3/uL Normal 0.00-0.20 [facility] Comment on above: Performed By: #### L [id number] ####[facility] ([facility])[address] [place] [address] Immature granulocytes/100 WBC (Bld) 0.4 % Normal 0.0-1.0 [facility] Comment on above: Performed By: #### L [id number] ####[facility] ([facility])[address] [place] [address] IMMATURE PLATELET FRACTION % 3.0 % Normal 0.8-6.3 [facility] Comment on above: Performed By: #### L [id number] ####[facility] ([facility])[address] [place] [address] Lymphocytes (Bld) [#/Vol] 0.73 10*3/uL Low 1.20-4.0 0 [facility] Comment on above: Performed By: #### L [id number] ####[facility] ([facility])[address] [place] [address] Lymphocytes/100 WBC (Bld) 16.0 % Low 20.0-45.0 [facility] Comment on above: Performed By: #### L [id number] ####[facility] ([facility])[address] [place] [address] MCH (RBC) [Entitic mass] 32.1 pg Normal 27.0-33.0 [facility] Comment on above: Performed By: #### L [id number] ####[facility] ([facility] [place] [address] MCV (RBC) [Entitic vol] 100.8 fL High 82.0-98.0 [facility] Comment on above: Performed By: #### L [id number] ####[facility]PITAL LAB (BEAKER)[address] [place] [address] Monocytes (Bld) [#/Vol] 0.85 10*3/uL Normal 0.10-1.00 [facility] Comment on above: Performed By: #### L [id number] ####[facility] (BEAKER)[address] [place] [address] Monocytes/100 WBC (Bld) 18.7 % High 5.0-12.0 [facility] Comment on above: Performed By: #### L [id number] ####[facility] (BEAKER)[address] [place] [address] Neutrophils (Bld) [#/Vol] 2.90 10*3/uL Normal 1.60-7.6 0 [facility] Comment on above: Performed By: #### L [id number] ####[facility] (BEAKER)[address] [place] [address] Neutrophils/100 WBC (Bld) 63.8 % Normal 40.0-72.0 [facility] Comment on above: Performed By: #### L [id number] ####[facility] (BEAKER)[address] [place] [address] NRBC (PER 100 WBCS) BY AUTOMATED COUNT 0.0 % Normal 0 [facility] Comment on above: Performed By: #### L [id number] ####[facility] (BEAKER)[address] [place] [address] PLATELETS (10*3/UL) IN BLOOD AUTOMATED COUNT 134 10*3/uL Low 150-400 [facility] Comment on above: Performed By: #### L [id number] ####[facility] (BEAKER)[address] [place] [address] RBC (Bld) [#/Vol] 3.74 10*6/uL Low 4.20-5.70 [facility] Comment on above: Performed By: #### L [id number] ####[facility] (BEAKER)[address] [place] [address] WBC (Bld) [#/Vol] 4.55 10*3/uL Normal 4.00-10.60 [facility] Comment on above: Performed By: #### L [id number] ####[facility] ([facility])[address] [place] [address] HPon 02-27-2024 HP Normal [facility] POTASSIUM, WHOLE BLOODon Potassium [Moles/Vol] 3.4 mmol/L Low 3.5-5.1 [facility] Comment on above: Performed By: #### P OTASSIUM, WHOLE BLOOD ####[facility] [id number] [place] [address] [place] SODIUM, WHOLE BLOODon 2023 SODIUM, WHOLE BLOOD 135 Low 136-145 [facility] Comment on above: Performed By: #### S ODIUM, WHOLE BLOOD ####[facility] [id number] [place] [address] [place] TROPONIN Ion 02-27-2024 Troponin I.cardiac [Mass/Vol] 0.04 ng/mL Normal 0.00-0.04 [facility] Comment on above: Performed By: #### L [id number] ####[facility] ([facility])[address] [place] [address] Troponin I.cardiac [Mass/Vol] 0.02 ng/mL Normal 0.00-0.04 [facility] Comment on above: Performed By: #### L [id number] ####[facility] ([facility] [place] [address] Troponin I.cardiac [Mass/Vol] 0.01 ng/mL Normal 0.00-0.04 [facility] Comment on above: Performed By: #### L [id number] ####[facility] ([facility] [place] [address] Troponin I.cardiac [Mass/Vol] 0.01 ng/mL Normal 0.00-0.04 [facility] Comment on above: Performed By: #### L [id number] ####[facility] ([facility])[address] [place] [address] Troponin I.cardiac [Mass/Vol] 0.02 ng/mL Normal 0.00-0.04 [facility] Comment on above: Performed By: #### L [id number] ####[facility] ([facility])[address] [place] [address] Troponin I.cardiac [Mass/Vol] 0.01 ng/mL Normal 0.00-0.04 [facility] Comment on above: Performed By: #### L [id number] ####[facility] ([facility])[address] [place] [address] 30on 02-26-2024 30 The patient is Moderately Stable - Low risk of patient condition declining or worsening The patient's goals for the shift include The clinical goals for the shift include Over the shift, the patient did not make progress toward the following goals. Normal [facility] ANTI-XA (HEPARIN LEVEL)on HEPARIN UNFRACTIONATED (U/ML) IN PPP BY CHROMOGENIC METHOD 0.14 IU/mL Invalid Interpretation Code 0.3-0.7 [facility] Comment on above: Result Comment: Ricarda roxaban and Apixaban will interfere with the anti Xa assay used to monitor UFH and LMWH. Performed By: #### L [id number] ####[facility] ([facility])[address] [place] [address] HEPARIN UNFRACTIONATED (U/ML) IN PPP BY CHROMOGENIC METHOD <0.10 Invalid Interpretation Code 0.3-0.7 [facility] Comment on above: Result Comment: Ricarda roxaban and Apixaban will interfere with the anti Xa assay used to monitor UFH and LMWH. Performed By: #### L [id number] ####[facility] ([facility])[address] [place] [address] APOLIPOPROTEIN B-100on 02-25 Magnesium [Mass/Vol] 50 mg/dL Low 66-133 [facility] Comment on above: Result Comment: REFE RENCE INTERVAL: Apolipoprotein BA desirable fasting serum Apo B concentration for the preventionof atherosclerotic cardiovascular disease in adults is less than90 mg/dL. A fasting serum Apo B concentration of 130 mg/dL orgreater corresponds to a LDL cholesterol concentration greaterthan 160 mg/dL and constitutes a risk enhancing factor foratherosclerotic cardiovascular disease in adults.Performed By: [id number] [place], [place] [id number] Director: Josh Olvera MD, PhDCLIA Number: [id number] Performed By: #### L [id number] ####[facility] (BEAKER)[address] [place] [address] APTTon 02-26-2024 ACTIVATED PARTIAL THROMBOPLASTIN TIME IN PPP BY COAGULATION ASSAY 32.6 Seconds Normal 25.0-35.0 [facility] Comment on above: Result Comment: Clin ical significance of the APTT is questionable in the presence of heparin. Performed By: #### L [id number] ####[facility] ([facility])[address] [place] [address] B-TYPE NATRIURETIC PEPTIDEon 02-26-2024 Natriuretic peptide B (Bld) [Mass/Vol] 321 pg/mL High 0-100 [facility] Comment on above: Performed By: #### L [id number] ####[facility] ([facility])[address] [place] [address] CBC WITH AUTO DIFFERENTIALon 02-26-2024 Basophils (Bld) [#/Vol] 0.03 10*3/uL Normal 0.00-0.20 [facility] Comment on above: Performed By: #### L [id number] ####[facility] ([facility])[address] [place] [address] Basophils/100 WBC (Bld) 0.5 % Normal 0.0-1.0 [facility] Comment on above: Performed By: #### L [id number] ####[facility] ([facility] [place] [address] Eosinophils (Bld) [#/Vol] 0.04 10*3/uL Normal 0.00-0.5 0 [facility] Comment on above: Performed By: #### L [id number] ####[facility] (BEAKER)[address] [place] [address] Eosinophils/100 WBC (Bld) 0.6 % Normal 0.0-6.0 [facility] Comment on above: Performed By: #### L [id number] ####[facility] (BEAKER)[address] [place] [address] Erythrocyte distribution width (RBC) [Ratio] 12.9 % Normal 11.5-15.0 [facility] Comment on above: Performed By: #### L [id number] ####[facility] (BEAKER)[address] [place] [address] ERYTHROCYTE MEAN CORPUSCULAR HEMOGLOBIN CONCENTRATION (G/DL) BY AUTOMATED 31.2 g/dL Low 32.0-35.0 [facility] Comment on above: Performed By: #### L [id number] ####[facility] [place] [address] Hematocrit (Bld) [Volume fraction] 43.6 % Normal 39.0-55.0 [facility] Comment on above: Performed By: #### L [id number] ####[facility] (BEAKER)[address] [place] [address] Hemoglobin (Bld) [Mass/Vol] 13.6 g/dL Normal 13.0-17.0 [facility] Comment on above: Performed By: #### L [id number] ####[facility] (BEAKER)[address] [place] [address] Immature granulocytes (Bld) [#/Vol] 0.03 10*3/uL Normal 0.00-0.20 [facility] Comment on above: Performed By: #### L [id number] ####[facility] (BEAKER)[address] [place] [address] Immature granulocytes/100 WBC (Bld) 0.5 % Normal 0.0-1.0 [facility] Comment on above: Performed By: #### L [id number] ####[facility] [place] [address] Lymphocytes (Bld) [#/Vol] 0.52 10*3/uL Low 1.20-4.0 0 [facility] Comment on above: Performed By: #### L [id number] ####[facility] [place] [address] Lymphocytes/100 WBC (Bld) 8.4 % Low 20.0-45.0 [facility] Comment on above: Performed By: #### L [id number] ####[facility] [place] [address] MCH (RBC) [Entitic mass] 32.3 pg Normal 27.0-33.0 [facility] Comment on above: Performed By: #### L [id number] ####[facility] ([facility])[address] [place] [address] MCV (RBC) [Entitic vol] 103.6 fL High 82.0-98.0 [facility] Comment on above: Performed By: #### L [id number] ####[facility] [place] [address] Monocytes (Bld) [#/Vol] 0.71 10*3/uL Normal 0.10-1.00 [facility] Comment on above: Performed By: #### L [id number] ####[facility] ([facility])[address] [place] [address] Monocytes/100 WBC (Bld) 11.5 % Normal 5.0-12.0 [facility] Comment on above: Performed By: #### L [id number] ####[facility] [place] [address] Neutrophils (Bld) [#/Vol] 4.86 10*3/uL Normal 1.60-7.6 0 [facility] Comment on above: Performed By: #### L [id number] ####[facility] ([facility])[address] [place] [address] Neutrophils/100 WBC (Bld) 78.5 % High 40.0-72.0 [facility] Comment on above: Performed By: #### L [id number] ####[facility] ([facility])[address] [place] [address] NRBC (PER 100 WBCS) BY AUTOMATED COUNT 0.0 % Normal 0 [facility] Comment on above: Performed By: #### L [id number] ####[facility] ([facility])[address] [place] [address] PLATELETS (10*3/UL) IN BLOOD AUTOMATED COUNT 153 10*3/uL Normal 150-400 [facility] Comment on above: Performed By: #### L [id number] ####[facility] ([facility])[address] [place] [address] RBC (Bld) [#/Vol] 4.21 10*6/uL Normal 4.20-5.70 [facility] Comment on above: Performed By: #### L [id number] ####[facility] ([facility])[address] [place] [address] WBC (Bld) [#/Vol] 6.19 10*3/uL Normal 4.00-10.60 [facility] Comment on above: Performed By: #### L [id number] ####[facility] ([facility])[address] [place] [address] CKon 02-26-2024 CREATINE KINASE (U/L) IN SER/PLAS 94.0 U/L Normal 30.0-223.0 [facility] Comment on above: Performed By: #### L [id number] ####[facility] ([facility])[address] [place] [address] COMPREHENSIVE METABOLIC PANE Larry 02-26-2024 Albumin [Mass/Vol] 3.4 g/dL Low 3.5-5.7 [facility] Comment on above: Performed By: #### L [id number] ####[facility] [place] [address] ALP [Catalytic activity/Vol] 89 U/L Normal 34-104 [facility] Comment on above: Performed By: #### L [id number] ####[facility] ([facility])[address] [place] [address] ALT [Catalytic activity/Vol] 16 U/L Normal 7-52 [facility] Comment on above: Performed By: #### L [id number] ####[facility] ([facility])[address] [place] [address] Anion gap [Moles/Vol] 9 mmol/L Normal 7-20 [facility] Comment on above: Performed By: #### L [id number] ####[facility] ([facility])[address] [place] [address] AST [Catalytic activity/Vol] 20 U/L Normal 13-39 [facility] Comment on above: Performed By: #### L [id number] ####[facility] ([facility])[address] [place] [address] Bilirubin [Mass/Vol] 1.0 mg/dL Normal 0.3-1.0 [facility] Comment on above: Performed By: #### L [id number] ####[facility] ([facility])[address] [place] [address] Calcium [Mass/Vol] 8.6 mg/dL Normal 8.6-10.3 [facility] Comment on above: Performed By: #### L [id number] ####[facility] ([facility])[address] [place] [address] Chloride [Moles/Vol] 105 mmol/L Normal 98-107 [facility] Comment on above: Performed By: #### L [id number] ####[facility] [place] [address] CO2 [Moles/Vol] 30 mmol/L Normal 21-31 [facility] Comment on above: Performed By: #### L [id number] ####[facility] ([facility])[address] [place] [address] Creatinine [Mass/Vol] 0.90 mg/dL Normal 0.70-1.30 [facility] Comment on above: Performed By: #### L [id number] ####[facility] ([facility])[address] [place] [address] GLOMERULAR FILTRATION RATE ML/MIN/1.73 SQ M.PREDICTED 87.4 mL/min/1.73m*2 Normal >60.0 [facility] Comment on above: Result Comment: The [facility]???s estimated glomerular filtration rate (eGFR) will no [...] of individuals. Performed By: #### L [id number] ####[facility] ([facility])[address] [place] [address] Glucose [Mass/Vol] 127 mg/dL High 70-100 [facility] Comment on above: Performed By: #### L [id number] ####[facility] ([facility])[address] [place] [address] Potassium [Moles/Vol] 3.4 mmol/L Low 3.5-5.1 [facility] Comment on above: Performed By: #### L [id number] ####[facility] ([facility])[address] [place] [address] Protein [Mass/Vol] 6.9 g/dL Normal 6.0-8.3 [facility] Comment on above: Performed By: #### L [id number] ####[facility] ([facility])[address] [place] [address] Sodium [Moles/Vol] 141 mmol/L Normal 136-145 [facility] Comment on above: Performed By: #### L [id number] ####[facility] [place] [address] Urea nitrogen [Mass/Vol] 14 mg/dL Normal 7-25 [facility] Comment on above: Performed By: #### L [id number] ####[facility] ([facility])[address] [place] [address] UREA NITROGEN/CREATININE (MASS RATIO) IN SER/PLAS 15.6 Normal [facility] Comment on above: Performed By: #### L [id number] ####[facility] ([facility])[address] [place] [address] CONSULTon 02-26-2024 CONSULT Normal [facility] CTA CHEST W IV CONTRASTon CTA CHEST W IV CONTRAST Normal [facility] ETHANOLon 02-26-2024 ETHANOL (MG/DL) IN SER/PLAS <10 Normal [facility] Comment on above: Performed By: #### L [id number] ####[facility] ([facility])[address] [place] [address] ETHANOL CALCULATED (%) Normal Un [facility] Comment on above: Performed By: #### L [id number] ####[facility] (BE[employer])[address] [place] [address] HEMOGLOBIN A1Con 02-26-2024 Glucose [Mass/Vol] 88 mg/dL Normal [facility] Comment on above: Performed By: #### L [id number] ####[facility] [place] [address] HbA1c (Bld) [Mass fraction] 4.7 % Normal 4.0-6.0 [facility] Comment on above: Performed By: #### L [id number] ####[facility] (BEAKER)[address] [place] [address] HPon 02-26-2024 HP Normal [facility] LIPID PANELon 02-26-2024 CHOL/HDL 2.5 mg/dL Normal [facility] Comment on above: Performed By: #### L [id number] ####[facility] (BEAKER)[address] [address] Cholesterol [Mass/Vol] 93 mg/dL Low 120-200 Un [facility] Comment on above: Performed By: #### L [id number] ####[facility] (BEAKER)[address] [place] [address] Magnesium [Mass/Vol] 59 mg/dL Normal 40-149 [facility] Comment on above: Result Comment: TRIG LYCERIDE REFERENCE RANGE:20 YEARS AND OLDER CARDIOVASCULAR RISKLESS THAN 150 mg/dL LOW [id number] TO 199 mg/dL BORDERLINE IORS077 mg/dL AND GREATER HIGH RISK Performed By: #### L [id number] ####[facility] (BEAKER)[address] [place] [address] Magnesium [Mass/Vol] 44 mg/dL Normal 0-160 [facility] Comment on above: Performed By: #### L [id number] ####[facility] (BEAKER)[address] [address] Magnesium [Mass/Vol] 37 mg/dL Normal 23-92 [facility] Comment on above: Performed By: #### L [id number] ####[facility] (BEAKER)[address] [place] [address] NON HDL CHOL. (LDL+VLDL) 56 Normal [facility] Comment on above: Performed By: #### L [id number] ####[facility] (BEAKER)[address] [place] [address] TOTAL VLDL-C 12 mg/dL Normal 0-40 [facility] Comment on above: Performed By: #### L [id number] ####[facility] (BEAKER)[address] [place] [address] LIPOPROTEIN A (LPA)on 2023 Magnesium [Mass/Vol] 10 mg/dL Normal <=29 [facility] Comment on above: Result Comment: Perf ormed By: [facility] [id number] [place], [place] [id number] Director: Josh Olvera MD, PhDCLIA Number: [id number] Performed By: #### L [id number] ####[facility] ([facility])[address] [place] [address] MAGNESIUMon 02-26-2024 Magnesium [Mass/Vol] 1.7 mg/dL Low 1.9-2.7 [facility] Comment on above: Performed By: #### L [id number] ####[facility] ([facility])[address] [place] [address] PHOSPHORUSon 02-26-2024 Magnesium [Mass/Vol] 3.7 mg/dL Normal 2.5-5.0 [facility] Comment on above: Performed By: #### L [id number] ####[facility] ([facility])[address] [place] [address] TOXICOLOGY PANEL URINEon AMPHETAMINE+METHAMPHETAMIN E SCREEN (PRESENCE) IN URINE Negative Normal Negative [facility] Comment on above: Performed By: #### L [id number] ####[facility] ([facility])[address] [place] [address] BARBITURATES PRESENCE IN URINE BY SCREEN METHOD Negative Normal Negative [facility] Comment on above: Performed By: #### L [id number] ####[facility] ([facility])[address] [place] [address] Benzodiazepines Ql (U) Negative Normal Negative [facility] Comment on above: Performed By: #### L [id number] ####[facility] ([facility])[address] [place] [place] [address] CANNABINOID (PRESENCE) IN URINE BY SCREEN METHOD Negative Normal Negative [facility] Comment on above: Performed By: #### L [id number] ####[facility] ([facility])[address] [place] [address] Cocaine Ql (U) Negative Normal Negative [facility] Comment on above: Performed By: #### L [id number] ####[facility] (BEAKER)[address] [place] [address] METHADONE (PRESENCE) IN URINE BY SCREEN METHOD Negative Normal Negative [facility] Comment on above: Performed By: #### L [id number] ####[facility] (BEAKER)[address] [place] [address] OPIATES (PRESENCE) IN URINE BY SCREEN METHOD Negative Normal Negative [facility] Comment on above: Performed By: #### L [id number] ####[facility] ([facility])[address] [place] [address] PHENCYCLIDINE PRESENCE IN URINE BY SCREEN METHOD Negative Normal Negative [facility] Comment on above: Performed By: #### L [id number] ####[facility] ([facility])[address] [place] [address] Propoxyphene Screen Ql (U) Negative Normal Negative [facility] Comment on above: Performed By: #### L [id number] ####[facility] ([facility])[address] [place] [address] TRICYCLIC ANTIDEPRESSANTS (PRESENCE) IN URINE Negative Normal Negative [facility] Comment on above: Performed By: #### L [id number] ####[facility] ([facility] [place] [address] TROPONIN Ion 02-26-2024 Troponin I.cardiac [Mass/Vol] 0.02 ng/mL Normal 0.00-0.04 [facility] Comment on above: Performed By: #### L [id number] ####[facility] (BEAKER)[address] [place] [address] Troponin I.cardiac [Mass/Vol] 0.02 ng/mL Normal 0.00-0.04 [facility] Comment on above: Performed By: #### L [id number] ####[facility] (BEAKER)[address] [place] [address] Troponin I.cardiac [Mass/Vol] 0.01 ng/mL Normal 0.00-0.04 [facility] Comment on above: Performed By: #### L [id number] ####[facility] (BEAKER)[address] [place] [address] TSHon 02-26-2024 THYROTROPIN (MIU/L) IN SER/PLAS BY DETECTION LIMIT <= 0.05 MIU/L 1.59 mIU/L Normal 0.34-5.60 [facility] Comment on above: Performed By: #### L [id number] ####[facility] (BEAKER)[address] [place] [address] CBC AND AUTO DIFFon 02-22-20 ABSOLUTE BASOPHIL 0.0 X10E9/L Normal 0.0-0.2 [facility] Comment on above: Performed By: #### P INR, 25314-0 #### [facility] ([id number]) [address] [place] [address] 53329 #### CBCA, CMP #### [facility] ([id number]) [address], [address] [place] [address] ABSOLUTE NEUTROPHIL 2.3 X10E9/L Normal 1.5-6.6 [facility] Comment on above: Performed By: #### P INR, 87912-0 #### [facility] ([id number]) [address] [place] [address] 72363 #### CBCA, CMP #### [facility] ([id number]) [address], [address] [place] [address] Basophils/100 WBC (Bld) 0.7 % Normal P [facility] Comment on above: Performed By: #### P INR, 98475-9 #### [facility] ([id number]) [address] [place] [address] 16020 #### CBCA, CMP #### [facility] ([id number]) [address] [place] [address] Eosinophils (Bld) [#/Vol] 0.2 10*3/uL Normal 0.0-0.4 [facility] Comment on above: Performed By: #### P INR, 31228-0 #### [facility] ([id number]) [address] [place] [address] 02179 #### CBCA, CMP #### [facility] ([id number]) [address], [address] [place] [address] Eosinophils/100 WBC (Bld) 3.8 % Normal [facility] Comment on above: Performed By: #### P INR, 95247-9 #### [facility] ([id number]) [address] [place] [address] 23211 #### CBCA, CMP #### [facility] ([id number]) [address], [address] [place] [address] Erythrocyte distribution width (RBC) [Ratio] 14.3 % Normal 11.5-15.0 [facility] Comment on above: Performed By: #### P INR, 48325-0 #### [facility] ([id number]) [address] [place] [address] 11733 #### CBCA, CMP #### [facility] ([id number]) [address], [address] [place] [address] Hematocrit (Bld) [Volume fraction] 42.1 % Normal 39-49 [facility] Comment on above: Performed By: #### P INR, 50490-9 #### [facility] ([id number]) [address] [place] [address] 28154 #### CBCA, CMP #### [facility] ([id number]) [address], [address] [place] [address] Hemoglobin (Bld) [Mass/Vol] 13.9 g/dL Normal 13.0-17.0 [facility] Comment on above: Performed By: #### P INR, 19186-6 #### [facility] ([id number]) [address] [place] [address] 75616 #### CBCA, CMP #### [facility] ([id number]) [address], [address] [place] [address] Lymphocytes (Bld) [#/Vol] 1.4 10*3/uL Normal 1.0-3.5 [facility] Comment on above: Performed By: #### P INR, 08967-5 #### [facility] ([id number]) [address] [place] [address] 80491 #### CBCA, CMP #### [facility] ([id number]) [address], [address] [place] [address] Lymphocytes/100 WBC (Bld) 31.5 % Normal [facility] Comment on above: Performed By: #### P INR, 56338-8 #### [facility] ([id number]) [address] [place] [address] 69900 #### CBCA, CMP #### [facility] ([id number]) [address], [address] [place] [address] MCH (RBC) [Entitic mass] 32.8 pg Normal 27-34 [facility] Comment on above: Performed By: #### P INR, 90519-5 #### [facility] ([id number]) [address] [place] [address] 39498 #### CBCA, CMP #### [facility] ([id number]) [address], [address] [place] [address] MCHC (RBC) [Mass/Vol] 32.9 g/dL Normal 32-36 [facility] Comment on above: Performed By: #### P INR, 67051-1 #### [facility] ([id number]) [address] [place] [address] 61522 #### CBCA, CMP #### [facility] ([id number]) [address], [address] [place] [address] MCV (RBC) [Entitic vol] 100 fL Normal 80-100 P [facility] Comment on above: Performed By: #### P INR, 93540-7 #### [facility] ([id number]) [address] [place] [address] 57950 #### CBCA, CMP #### [facility] ([id number]) [address] [address] Monocytes (Bld) [#/Vol] 0.5 10*3/uL Normal 0-0.9 [facility] Comment on above: Performed By: #### P INR, 94464-1 #### [facility] ([id number]) [address] [place] [address] 62574 #### CBCA, CMP #### [facility] ([id number]) [address] [place] [address], [address] [address] Monocytes/100 WBC (Bld) 10.8 % Normal P [facility] Comment on above: Performed By: #### P INR, 76594-0 #### [facility] ([id number]) [address] [place] [address] 81744 #### CBCA, CMP #### [facility] ([id number]) [address] [place] [address] Neutrophils/100 WBC (Bld) 53.2 % Normal [facility] Comment on above: Performed By: #### P INR, 39443-2 #### [facility] ([id number]) [address] [place] [address] 03182 #### CBCA, CMP #### [facility] ([id number]) [address], [address] [place] [address] Platelet mean volume (Bld) [Entitic vol] 9.8 fL Normal 7-12 [facility] Comment on above: Performed By: #### P INR, 32223-5 #### [facility] ([id number]) [address] [place] [address] 10920 #### CBCA, CMP #### [facility] ([id number]) [address], [address] [place] [address] Platelets (Bld) [#/Vol] 164 10*3/uL Normal 150-450 [facility] Comment on above: Performed By: #### P INR, 33841-3 #### [facility] ([id number]) [address] [place] [address] 28223 #### CBCA, CMP #### [facility] ([id number]) [address], [address] [place] [address] RBC COUNT 4.22 X10E12/L Normal 4.10-5.70 [facility] Comment on above: Performed By: #### P INR, 61198-4 #### [facility] ([id number]) [address] [place] [address] 09193 #### CBCA, CMP #### [facility] ([id number]) [address], [address] [place] [address] WBC (Bld) [#/Vol] 4.3 10*3/uL Normal 4.0-11.0 [facility] Comment on above: Performed By: #### P INR, 35854-1 #### [facility] ([id number]) [address] [place] [address] 71805 #### CBCA, CMP #### [facility] ([id number]) [address], [address] [place] [address] COMPREHENSIVE METABOLIC PANE Larry 02-22-2024 Albumin [Mass/Vol] 3.4 g/dL Normal 3.2-5.3 [facility] Comment on above: Performed By: #### P INR, 50109-0 #### [facility] ([id number]) [address] [place] [address] 70736 #### CBCA, CMP #### [facility] ([id number]) [address] [facility], [address] [place] [address] ALP [Catalytic activity/Vol] 88 U/L Normal 39-130 [facility] Comment on above: Performed By: #### P INR, 12067-9 #### [facility] ([id number]) [address] [place] [address] 04101 #### CBCA, CMP #### [facility] ([id number]) [address] [facility] [facility], [address] [place] [address] ALT [Catalytic activity/Vol] 15 U/L Normal 0-40 [facility] Comment on above: Performed By: #### P INR, 47454-7 #### [facility] ([id number]) [address] [place] [address] 83232 #### CBCA, CMP #### [facility] ([id number]) [address] [facility] [facility] [place] [address] Anion gap [Moles/Vol] 8 mmol/L Normal 5-15 [facility] Comment on above: Performed By: #### P INR, 12338-8 #### [facility] ([id number]) [address] [place] [address] 64209 #### CBCA, CMP #### [facility] ([id number]) [address] [address] [facility] [facility], [address] [place] [address] AST [Catalytic activity/Vol] 21 U/L Normal 0-41 [facility] Comment on above: Performed By: #### P INR, 20227-7 #### [facility] ([id number]) [address] [place] [address] 37776 #### CBCA, CMP #### [facility] ([id number]) [address], [address] [place] [address] Bilirubin [Mass/Vol] 0.5 mg/dL Normal 0.3-1.2 [facility] Comment on above: Performed By: #### P INR, 38305-0 #### [facility] ([id number]) [address] [place] [address] 04340 #### CBCA, CMP #### [facility] ([id number]) [address], [address] [place] [address] Calcium [Mass/Vol] 8.9 mg/dL Normal 8.5-10.5 [facility] Comment on above: Performed By: #### P INR, 32042-3 #### [facility] ([id number]) [address] [place] [address] 03453 #### CBCA, CMP #### [facility] ([id number]) [address], [address] [place] [address] Chloride [Moles/Vol] 109 mmol/L Normal 98-109 [facility] Comment on above: Performed By: #### P INR, 78517-1 #### [facility] ([id number]) [address] [place] [address] 42585 #### CBCA, CMP #### [facility] ([id number]) [address], [address] [place] [address] CO2 [Moles/Vol] 26 mmol/L Normal 22-32 [facility] Comment on above: Performed By: #### P INR, 30059-1 #### [facility] ([id number]) [address] [place] [address] 00883 #### CBCA, CMP #### [facility] ([id number]) [address], [address] [place] [address] Creatinine [Mass/Vol] 0.80 mg/dL Normal 0.60-1.30 [facility] Comment on above: Result Comment: METH OD TRACEABLE TO IDMS STANDARD Performed By: #### P INR, 92365-3 #### [facility] ([id number]) [address] [place] [address] 92969 #### CBCA, CMP #### [facility] ([id number]) [address], [address] [place] [address] eGFR (CKD-EPI) NON-RACE DEPENDENT >90 Normal >59 [facility] Comment on above: Result Comment: Reported eGFR is based on the CKD-EPI 2020 equation that does not use a race coefficient. Performed By: #### P INR, 35501-7 #### [facility] ([id number]) [address] [place] [address] 42969 #### CBCA, CMP #### [facility] ([id number]) [address], [address] [place] [address] Glucose [Mass/Vol] 106 mg/dL High 65-99 [facility] Comment on above: Performed By: #### P INR, 60513-9 #### [facility] ([id number]) [address] [place] [address] 50867 #### CBCA, CMP #### [facility] ([id number]) [address], [address] [place] [address] Potassium [Moles/Vol] 3.4 mmol/L Low 3.5-5.0 [facility] Comment on above: Performed By: #### P INR, 69952-1 #### [facility] ([id number]) [address] [place] [address] 74317 #### CBCA, CMP #### [facility] ([id number]) [address], [address] [place] [address] Protein [Mass/Vol] 6.8 g/dL Normal 6.0-8.0 [facility] Comment on above: Performed By: #### P INR, 84680-8 #### [facility] ([id number]) [address] [place] [address] 89175 #### CBCA, CMP #### [facility] ([id number]) [address] [place] [address] Sodium [Moles/Vol] 143 mmol/L Normal 134-146 [facility] Comment on above: Performed By: #### P INR, 87814-6 #### [facility] ([id number]) [address] [place] [address] 87229 #### CBCA, CMP #### [facility] ([id number]) [address], [address] [place] [address] Urea nitrogen [Mass/Vol] 15 mg/dL Normal 5-27 [facility] Comment on above: Performed By: #### P INR, 97348-1 #### [facility] ([id number]) [address] [place] [address] 66754 #### CBCA, CMP #### [facility] ([id number]) [address], [address] [place] [address] PROTIME AND INRon 02-22-2024 INR Coag (PPP) [Relative time] 1.2 {INR} High 0.8-1.1 [facility] Comment on above: Performed By: #### P INR, 99289-9 #### [facility] ([id number]) [address] [place] [address] 87952 #### CBCA, CMP #### [facility] ([id number]) [address] [place] [address] PT Coag (PPP) [Time] 14.1 s High 9.8-13.2 [facility] Comment on above: Result Comment: NEW REFERENCE RANGE Performed By: #### P INR, 76352-9 #### [facility] ([id number]) [address] [place] [address] 34192 #### CBCA, CMP #### [facility] ([id number]) [address] [place] [address] aPTT Coag (PPP) [Time]on aPTT Coag (Bld) [Time] 39 s High 26-37 [facility] Comment on above: Result Comment: NEW REFERENCE RANGE Performed By: #### P INR, 78780-6 #### [facility] ([id number]) [address] [place] [address] 67314 #### CBCA, CMP #### [facility] ([id number]) [address] [place] [address] NURSNOTEon 02-19-2024 NURSNOTE Normal [facility] HPon 02-09-2024 Normal [facility] 36on 02-08-2024 36 Normal [facility] Vital Signs Date Time Vital Sign Value Performing Clinician Facility 07-04-2024 15:51-0500 Body temperature 97.81 [degF] Ru Schwarz MD Work Phone: [facility] 07-04-2024 15:51-0500 Diastolic blood pressure 59 mm[Hg] Ru Schwarz MD Work Phone: [facility] 07-04-2024 15:51-0500 Heart rate 62 /min Ru Schwarz MD Work Phone: [facility] 07-04-2024 15:51-0500 Respiratory rate 19 /min Ru Schwarz MD Work Phone: [facility] 07-04-2024 15:51-0500 SaO2% (BldA) [Mass fraction] 94 % Ru Schwarz MD Work Phone: [facility] 07-04-2024 15:51-0500 Systolic blood pressure 122 mm[Hg] Ru Schwarz MD Work Phone: [facility] 07-04-2024 04:36-0500 Body mass index (BMI) [Ratio] 30.08 kg/m2 Ru Schwarz MD Work Phone: [facility] 07-04-2024 04:36-0500 Body weight 100.6 kg Ru Schwarz MD Work Phone: [facility] 06-29-2024 12:17-0500 Body height 182.9 cm Ru Schwarz MD Work Phone: [facility] Encounters Encounter Date Encounter Type Care Provider Facility Start: 11-29-2024 End: 11-29-2024 ambulatory [facility] Start: 11-25-[address] [facility] Start: 11-18-2024 End: 11-18-2024 ambulatory [facility] Start: 11-12-2024 End: 11-13-2024 ambulatory [facility] Start: 10-30-2024 End: 11-01-2024 ambulatory [facility] Start: 10-17-2024 ambulatory [facility] Start: 10-08-[address] [facility] Start: 09-04-2024 End: 09-04-2024 ambulatory [facility] Start: 08-30-2024 End: 08-30-2024 ambulatory OBI RAA [facility] Start: 08-29-2024 End: 08-29-2024 ambulatory Kelvin Langston Facility:[facility] Start: 08-29-2024 End: 08-29-2024 Departed Referred Kelvin Langston MD Work Phone: [facility] Start: 08-28-2024 ambulatory ALTAGRACIA RIVAS [facility] Start: 08-27-[address] [facility] Start: 08-27-2024 Encounter for preprocedural cardiovascular examination [facility] Start: 08-09-2024 End: 08-09-2024 ambulatory [facility] Start: 08-01-[address] [facility] Start: 08-01-[address] [facility] Start: 07-19-2024 End: 07-19-2024 ambulatory [facility] Start: 07-16-2024 End: 07-16-2024 ambulatory [facility] Start: 07-09-2024 End: 07-10-2024 Emergency department patient visit [facility] Start: 07-08-2024 End: 07-08-2024 ambulatory [facility] Start: 07-05-2024 End: 07-06-2024 Emergency department patient visit [facility] Start: 07-05-2024 End: 07-05-2024 Telephone encounter Angela silva Comment on above: Blood in Urine Start: 07-02-2024 End: 07-02-2024 ambulatory [facility] Start: 06-29-2024 End: 07-04-2024 Evaluation and management of inpatient Antoine Burleson Do, MD Work Phone: [facility] Acute Comment on above: Fall in home, initia l encounter (Primary Dx); Acute blood loss anemia Start: 06-28-2024 End: 06-29-2024 Emergency department patient visit MIGUEL GARCIA [facility] Start: 06-26-2024 Emergency department patient visit [facility] Start: 06-26-2024 End: 06-26-2024 Emergency department patient visit [facility] Start: 06-19-2024 End: 06-19-2024 ambulatory [facility] Start: 05-30-[address] [facility] Start: 05-21-2024 End: 05-21-2024 ambulatory [facility] Start: 05-21-2024 End: 05-21-2024 ambulatory [facility] Start: 05-15-2024 End: 05-15-2024 ambulatory Kelvin Langston [facility] Work Phone: Start: 05-15-2024 [facility] Work Phone: [facility] Start: 05-06-[address] [facility] Start: 05-06-[address] [facility] Start: 04-30-2024 End: 04-30-[address] [facility] Start: 04-24-2024 End: 04-24-2024 ambulatory [facility] Start: 04-19-2024 End: 04-19-2024 ambulatory [facility] Start: 04-02-2024 End: 04-03-2024 ambulatory [facility] Start: 03-13-2024 End: 03-14-2024 ambulatory SAMAR [facility] Start: 03-05-2024 Evaluation and manag ement of inpatient [facility] Start: 03-01-2024 Evaluation and manag ement of inpatient [facility] Start: 02-28-2024 Evaluation and manag ement of inpatient [facility] Start: 02-28-2024 Evaluation and manag ement of inpatient [facility] Start: 02-27-2024 Evaluation and manag ement of inpatient [facility] Start: 02-27-2024 Evaluation and manag ement of inpatient [facility] Start: 02-26-2024 Evaluation and manag ement of inpatient [facility] Start: 02-26-2024 Evaluation and manag ement of inpatient [facility] Start: 02-26-2024 Evaluation and manag ement of inpatient [facility] Start: 02-26-2024 End: 02-26-2024 ambulatory [facility] Start: 02-26-2024 End: 03-06-2024 Evaluation and management of inpatient SAILAJA [facility] Start: 02-22-2024 End: 02-22-2024 ambulatory [facility] Start: 02-09-2024 End: 02-09-2024 ambulatory [facility] Start: 02-09-2024 End: 02-09-2024 ambulatory [facility] Start: 02-09-2024 End: 02-09-2024 ambulatory [facility] Start: 01-10-2024 End: 01-10-2024 ambulatory RANDOLPH [facility] Start: 12-29-2023 ambulatory Nova Wang Facility:[facility] Start: 12-26-2023 End: 12-26-2023 ambulatory TABITHA LEUNG Facility:[facility]ARIA Soriano Start: 12-26-2023 End: 12-26-2023 Patient encounter procedure TABITHA LEUNG [facility] Start: 12-19-2023 ambulatory Nova M. Lue Facility:E Dawna Soriano Start: 12-12-2023 End: 12-13-2023 ambulatory Nova M. Lue Facility:[id number] Start: 12-12-2023 End: 12-12-2023 ambulatory Nova M. Lue Facility:CD:[id number] Procedures Date Procedure Procedure Detail Performing Clinician Start: 11-29-2024 Follow-up visit OBI EKW AMADOU Start: 11-18-2024 Follow-up visit OBI EKW AMADOU Start: 11-12-2024 Follow-up visit OBI EKW AMADOU Start: 10-30-2024 Follow-up visit OBI EKW AMADOU Start: 08-28-2024 Follow-up visit OBI EKW AMADOU Start: 07-04-2024 Gluc bld gluc mntr d ev cleared fda spec home use Ru Schwarz MD Work Phone: Start: 07-04-2024 Basic metabolic pane l calcium total Ingrid J Arcelia SAHA Work Phone: Start: 07-04-2024 Gluc bld gluc mntr d ev cleared fda spec home use Ru Schwarz MD Work Phone: Start: 07-03-2024 Gluc bld gluc mntr d ev cleared fda spec home use Ru Schwarz MD Work Phone: Start: 07-03-2024 Gluc bld gluc mntr d ev cleared fda spec home use Ru Schwarz MD Work Phone: Start: 07-03-2024 Gluc bld gluc mntr d ev cleared fda spec home use Ru Schwarz MD Work Phone: Start: 07-03-2024 Gluc bld gluc mntr d ev cleared fda spec home use Ru Schwarz MD Work Phone: Start: 07-03-2024 Basic metabolic pane l calcium total Ingrid J Arcelia SAHA Work Phone: Start: 07-03-2024 End: 07-03-2024 Gluc bld gluc mntr dev cleared fda spec home use Ru Schwarz MD Work Phone: Start: 07-02-2024 Gluc bld gluc mntr d ev cleared fda spec home use Ru Schwarz MD Work Phone: Start: 07-02-2024 End: 07-02-2024 Gluc bld gluc mntr dev cleared fda spec home use Ru Schwarz MD Work Phone: Start: 07-02-2024 Gluc bld gluc mntr d ev cleared fda spec home use Ru Schwarz MD Work Phone: Start: 07-02-2024 Dup-scan xtr veins c omplete bilateral study Elias SAHA Work Phone: Start: 07-02-2024 End: 07-02-2024 Basic metabolic panel calcium total Ingrid J Arcelia SAHA Work Phone: Start: 07-01-2024 Gluc bld gluc mntr d ev cleared fda spec home use Ru Schwarz MD Work Phone: Start: 07-01-2024 Gluc bld gluc mntr d ev cleared fda spec home use Ru Schwarz MD Work Phone: Start: 07-01-2024 End: 07-01-2024 Potassium serum plasma/whole blood Ru Schwarz MD Work Phone: Start: 07-01-2024 Gluc bld gluc mntr d ev cleared fda spec home use Ru Schwarz MD Work Phone: Start: 07-01-2024 Potassium serum plasma/whole blood Fransico Villagomez MD Work Phone: Start: 07-01-2024 Gluc bld gluc mntr d ev cleared fda spec home use Ru Schwarz MD Work Phone: Start: 07-01-2024 Basic metabolic pane l calcium total Ingrid Perry Valdo-Freddiekins PA Work Phone: Start: 07-01-2024 Gluc bld gluc mntr d ev cleared fda spec home use Ru Schwarz MD Work Phone: Start: 06-30-2024 Radiologic exam ches t single view Fransico Villagomez MD Work Phone: Start: 06-30-2024 Gluc bld gluc mntr d ev cleared fda spec home use Ru Schwarz MD Work Phone: Start: 06-30-2024 End: 06-30-2024 Gluc bld gluc mntr dev cleared fda spec home use Ru Schwarz MD Work Phone: Start: 06-30-2024 Blood count hematocrit Ingrid Perry Valdo-Freddiekins PA Work Phone: Start: 06-30-2024 Gluc bld gluc mntr d ev cleared fda spec home use Ru Schwarz MD Work Phone: Start: 06-30-2024 RESP ARTERIAL LINE SETUP Wilberto Loomis MD Work Phone: Start: 06-30-2024 End: 06-30-2024 Basic metabolic panel calcium total Ingrid Perry Valdo-Freddiekins PA Work Phone: Start: 06-30-2024 End: 06-30-2024 Gluc bld gluc mntr dev cleared fda spec home use Ru Schwarz MD Work Phone: Start: 06-30-2024 RESP ARTERIAL LINE SETUP Wilberto Loomis MD Work Phone: Start: 06-29-2024 RESP ARTERIAL LINE SETUP Wilberto Loomis MD Work Phone: Start: 06-29-2024 End: 06-29-2024 Gluc bld gluc mntr dev cleared fda spec home use Ru Schwarz MD Work Phone: Start: 06-29-2024 Blood count hematocrit Ingrid Andersonchi-Junkins PA Work Phone: Start: 06-29-2024 Gluc bld gluc mntr d ev cleared fda spec home use Ru Schwarz MD Work Phone: Start: 06-29-2024 End: 06-29-2024 TRANSFUSE RED BLOOD CELLS Shar garcia MD Work Phone: Start: 06-29-2024 RESP ARTERIAL LINE SETUP Wilberto Loomis MD Work Phone: Start: 06-29-2024 Blood count hematocrit Ingrid Lyle-Junkins PA Work Phone: Start: 06-29-2024 End: 06-29-2024 TRANSFUSE RED BLOOD CELLS Fransico Villagomez MD Work Phone: Start: 06-29-2024 Gluc bld gluc mntr d ev cleared fda spec home use Ru Schwarz MD Work Phone: Start: 06-29-2024 REPEATED ABORH Ingrid Andersonchi-Junkins PA Work Phone: Start: 06-29-2024 End: 06-29-2024 Basic metabolic panel calcium total Ingrid Andersonchi-Junkins PA Work Phone: Start: 06-29-2024 Antibody screen Ru Schwarz MD Work Phone: Start: 06-29-2024 Culture bacterial quanttative colony count urine Ingrid Lyle-Junkins PA Work Phone: Start: 06-29-2024 Urnls dip stick/tabl et rgnt auto w/o microscopy Ingrid Andersonchi-Junkins PA Work Phone: Start: 06-29-2024 Adult depression scr eening assessment Angela Owusu Start: 06-29-2024 Radiologic exam ches t single view Ingrid Lyle-Jennifer PA Work Phone: Start: 06-29-2024 End: 06-29-2024 Comprehensive metabolic panel Ingrid Perry Arcelia PA Work Phone: Start: 06-29-2024 Ethanol [Mass/volume ] in Serum or Plasma Ingrid Perry AungUnirisxmadhuri PA Work Phone: Start: 06-29-2024 End: 06-29-2024 Blood typing serologic abo Ingrid Perry ValdoTactoTek PA Work Phone: Start: 06-29-2024 CROSSMATCH RBC Ingrid Perry ValdoTactoTek PA Work Phone: Start: 06-29-2024 REPEATED ABORH Ingrid Perry Sabesim PA Work Phone: Start: 04-24-2024 Follow-up visit OBI EKW AMADOU Start: 04-02-2024 Follow-up visit OBI EKW AMADOU Start: 03-13-2024 Follow-up visit OBI EKW AMADOU Start: 02-09-2024 Follow-up visit OBI EKW AMADOU Start: 01-10-2024 Follow-up visit OBI EKW AMADOU Plan of Treatment Date Care Activity Detail Author Start: 06-29-2025 Depression Screening Depression Screening [facility] Start: 06-29-2025 Tobacco Screening Tobacco Screening [facility] Start: 08-29-2024 Bacteria identified in Urine by Culture Urine Culture [facility] Start: 08-29-2024 Urine culture [facility] Start: 05-15-2024 Bacteria identified in Urine by Culture Urine Culture [facility] Start: 05-15-2024 Urine culture [facility] Start: 01-14-2024 Influenza vaccination Influenza Vaccine [facility] [employer] [facility] Start: 2010 Fall Risk Screening Fall Risk Screening [facility] [employer] [facility] Start: 08-19-1995 Administration of varicella zoster vaccine Zoster (Shingles) Vaccine (1 of 2) [facility] Start: 1964 DTaP,Tdap and Td Vaccines (1 - Tdap) DTaP,Tdap and Td Vaccines (1 - Tdap) [facility] Immunizations Immunization Date Immunization Notes Care Provider Fa cility 06-29-2024 pneumococcal conj. 20-valent (PREVNAR-20) vaccine 0.5 mL Ru Schwarz MD Work Phone: [employer] 06-29-2024 flu vacc [id number] 6 mos up(PF) (FLULAVAL/FLUZONE/FLUAR IX TRIV) injection syringe 0.5 mL Ru Schwarz MD Work Phone: [employer] Payers Date Payer Category Payer Self-pay 2023 Medicare HMO ANTH MEDICARE [id number] 2021 Unknown [id number] 1945 Unknown [id number] 1945 Unknown [id number] 1945 Unknown [id number] 1945 Unknown [id number] 1945 Unknown [id number] 1945 Unknown [id number] 6 1945 Unknown [id number] 6 1945 Unknown [id number] [id number] 6 1945 Unknown [id number] [id number] 6 1945 Unknown [id number] [id number] 6 1945 Unknown [id number] [id number] 6 1945 Unknown [id number] [id number] 6 1945 Unknown [id number] [id number] 6 1945 Unknown [id number] [id number] 6 Unknown [id number] Unknown [id number] Social History Date Type Detail Facility Tobacco smoking status [facility]u [facility] Start: 06-29-2024 End: 07-05-2024 Sex Assigned At Male [facility] Tobacco smoking stat [facility] Unknown if ever smoked [facility] Work Phone: Start: 05-16-2024 End: 08-31-2024 Sex Male (finding) [facility] Start: 1945 Sex Assigned At Male [facility] Start: 06-28-2024 Tobacco smoking stat [facility] Ex-smoker [facility] End: 05-15-2008 History of tobacco use Current smoker [facility] End: 05-15-2008 History of tobacco use Cigarette Smoker [facility] Start: 06-28-2024 Tobacco use and exposure Smokeless tobacco non-user [facility] [employer] [facility] Start: 06-29-2024 Alcoholic beverage intake [facility] Start: 06-29-2024 End: 07-05-2024 History of Social function [facility] Has the electric, [employer] s, oil, or water company threatened to shut off services in your home in past 12Mo No [facility] Adolescent depressio n screening assessment 2 [facility] Start: 1945 [facility] Goals Date Patient Goal Desired Activity /State Personal health goal Comment on above: Formatting of this n ote might be different from the original. Evaluation of progress towards goal: home with son and daughter in law Functional Status Date Assessment Result [facility] Status Date Assessment Result Facility [facility] Clinical Notes 01-10-2024 to 11-29-2024 [facility]30 PM ESTTelephone Encounter [facility] 7:30 PM ESTTelephone Encounter [facility] 7:30 PM ESTAppointments Note Date & Type Note Facility 11-29-2024 Note [facility] 11-18-2024 Note [facility] 11-12-2024 Note [facility] 11-12-2024 Note [facility] 10-30-2024 Note [facility] 10-30-2024 Note [facility] 10-17-2024 Note [facility] 10-17-2024 Note Renal us [facility] 09-04-2024 Note Renal condition is i mproving with treatment. Regular aerobic exercise. Renal condition will be reassessed in 1 month. No associated orders from this encounter found during lookback period of 72 hours. [facility] 09-04-2024 Note [facility] 09-04-2024 Note H&P reviewed. The maria a garcia was examined and there are no changes to the H&P. [facility] 08-29-2024 Note [facility] ca lled asking for revised order as diagnosis code did not pass medical necessity. [facility] 08-28-2024 Note [facility] 07-19-2024 Note [facility] 07-05-2024 Miscellaneous Notes Contract: [id number] re [employer] for Patient Call was connected to Dr Santa griffin documented in this encounter [facility] 07-05-2024 Telephone encounter Note Contract: [id number] re [employer] for Patient [facility] 07-05-2024 Telephone encounter Note Call was connected to Dr Santa griffin [facility] 07-04-2024 Nurse Note 1545 Report called to RAS Martinez at [facility]. Confirmed pick out hand time from PTN, ontime. Pt updated. IV removed. 1715: Report given to transport team. Pt discharged in stable condition. [facility] 07-04-2024 Nurse Note 1545 Report called to RAS Martinez at [facility]. Confirmed pick out hand time from PTN, ontime. Pt updated. IV removed. 1715: Report given to transport team. Pt discharged in stable condition. Pt pulse ox at 84%, pt placed on 2 liters of oxygen, notified patients nurse Ligia Soliz Rn of 02 placement. Pt resting quietly. documented in this encounter [facility] 07-04-2024 Plan of care note Problem: Pain Goal: Patient goal is pain score less than 4, able to rest, and participant in treatment plan as appropriate Description: INTERVENTIONS: 1. Encourage patient or legal outbound telemarketing representative to report early pain and ask for pain medicine when needed 2. Assess pain using appropriate pain scale and include the scale used when documenting 3. Administer analgesics based on type and severity of pain and evaluate response within appropriate time frame 4. Implement non-pharmacological measures as appropriate and evaluate response 5. Consider cultural and social influences on pain and pain management 6. Notify LIP if interventions ineffective or patient reports new pain 7. Monitor vital signs including pulse ox, end-tidal CO2 based on pain intervention 8. Reassess pain per policy 9. Teach patient or legal outbound telemarketing representative interventions for comforting Outcome: Adequate for Discharge Note: Evaluation of progress towards goal: Pt will have adequate pain control Problem: Safety Goal: Patient will be injury free during hospitalization Description: INTERVENTIONS: 1. Assess patient's risk for falls and implement fall prevention plan of care per policy 2. Provide and maintain a safe environment 3. Proper use of double Identifiers 4. Medication administration using the 5 rights 5. Hand hygiene 6. Specimens are labeled at the bedside 7. Instruct patient/ patient outbound telemarketing representative about use of safety devices 8. Include patient/ patient outbound telemarketing representative in decisions related to safety Outcome: Adequate for Discharge Note: Evaluation of progress towards goal: Pt will remain free from injury Problem: Moderate - High Risk Fall Score Description: [place] Fall Score of =/> 25 or indicated by [facility] Assessment Goal: Patient should be free from fall Description: Interventions: 1. [place] to environment 2. Hourly rounds addressing the 4 P's (Pain, Positioning, Possessions, Potty) 3. Clear area of hazards (spills, clutter, electrical cords, unnecessary equipment) 4. Place equipment (bed & TV controls, call light, phone, urinal) within reach 5. Encourage patient to wear glasses and hearing aides as appropriate 6. Maintain bed in lowest position 7. Lock wheels on bed/wheelchair 8. Provide adequate lighting, including night light 9. Assess need for additional bedding, food/fluids, pain med's prior to sleep/routinely 10. Provide gripper slippers or personal non-skid footwear 11. Teach patient and patient outbound telemarketing representative to maintain environment for safety and engage in all aspects of fall prevention program 12. Remind patient to call for help before getting out of bed 13. Initiate bed/chair/exit alarms supportive devices as appropriate, (chair wedge, no-skid floor mat, raised edge mattress, hip protectors) 14. Locate patient bed assignment for optimal visualization 15. Evaluate and identify Safe Patient Handling Equipment needs 16. Provide supervision when out of bed or chair 17. Utilize gait belt as needed to assist with ambulation 18. Place adaptive equipment (cane, walker) within reach 19. Request patient outbound telemarketing representative bring adaptive equipment/mobility aids from home or obtain and provide as needed 20. Consult pharmacy regarding effects of med's affecting mobility, cognition, and alternatives 21. Obtain physician order for PT if risk factors associated with mobility are present 22. Obtain physician order for OT as appropriate 23. Utilize diversional activities 24. Educate patient and patient outbound telemarketing representative how to maintain a safe environment during visitation times (notify nurse prior to leaving bedside) 25. Consider appropriateness of medical or non-certified medical coding specialist 26. Set up voiding schedule as appropriate (every 2 hours) Outcome: Adequate for Discharge Note: Evaluation of progress towards goal: Remain free from falls [facility] 07-04-2024 Miscellaneous Notes Problem: Pain Goal: Patient goal is pain score less than 4, able to rest, and participant in treatment plan as appropriate Description: INTERVENTIONS: 1. Encourage patient or legal outbound telemarketing representative to report early pain and ask for pain medicine when needed 2. Assess pain using appropriate pain scale and include the scale used when documenting 3. Administer analgesics based on type and severity of pain and evaluate response within appropriate time frame 4. Implement non-pharmacological measures as appropriate and evaluate response 5. Consider cultural and social influences on pain and pain management 6. Notify LIP if interventions ineffective or patient reports new pain 7. Monitor vital signs including pulse ox, end-tidal CO2 based on pain intervention 8. Reassess pain per policy 9. Teach patient or legal outbound telemarketing representative interventions for comforting Outcome: Adequate for Discharge Note: Evaluation of progress towards goal: Pt will have adequate pain control Problem: Safety Goal: Patient will be injury free during hospitalization Description: INTERVENTIONS: 1. Assess patient's risk for falls and implement fall prevention plan of care per policy 2. Provide and maintain a safe environment 3. Proper use of double Identifiers 4. Medication administration using the 5 rights 5. Hand hygiene 6. Specimens are labeled at the bedside 7. Instruct patient/ patient outbound telemarketing representative about use of safety devices 8. Include patient/ patient outbound telemarketing representative in decisions related to safety Outcome: Adequate for Discharge Note: Evaluation of progress towards goal: Pt will remain free from injury Problem: Moderate - High Risk Fall Score Description: [place] Fall Score of =/> 25 or indicated by [facility] Assessment Goal: Patient should be free from fall Description: Interventions: 1. [place] to environment 2. Hourly rounds addressing the 4 P's (Pain, Positioning, Possessions, Potty) 3. Clear area of hazards (spills, clutter, electrical cords, unnecessary equipment) 4. Place equipment (bed & TV controls, call light, phone, urinal) within reach 5. Encourage patient to wear glasses and hearing aides as appropriate 6. Maintain bed in lowest position 7. Lock wheels on bed/wheelchair 8. Provide adequate lighting, including night light 9. Assess need for additional bedding, food/fluids, pain med's prior to sleep/routinely 10. Provide gripper slippers or personal non-skid footwear 11. Teach patient and patient outbound telemarketing representative to maintain environment for safety and engage in all aspects of fall prevention program 12. Remind patient to call for help before getting out of bed 13. Initiate bed/chair/exit alarms supportive devices as appropriate, (chair wedge, no-skid floor mat, raised edge mattress, hip protectors) 14. Locate patient bed assignment for optimal visualization 15. Evaluate and identify Safe Patient Handling Equipment needs 16. Provide supervision when out of bed or chair 17. Utilize gait belt as needed to assist with ambulation 18. Place adaptive equipment (cane, walker) within reach 19. Request patient outbound telemarketing representative bring adaptive equipment/mobility aids from home or obtain and provide as needed 20. Consult pharmacy regarding effects of med's affecting mobility, cognition, and alternatives 21. Obtain physician order for PT if risk factors associated with mobility are present 22. Obtain physician order for OT as appropriate 23. Utilize diversional activities 24. Educate patient and patient outbound telemarketing representative how to maintain a safe environment during visitation times (notify nurse prior to leaving bedside) 25. Consider appropriateness of medical or non-certified medical coding specialist 26. Set up voiding schedule as appropriate (every 2 hours) Outcome: Adequate for Discharge Note: Evaluation of progress towards goal: Remain free from falls DISCHARGE PLANNING NOTE Case discussed in daily transition rounds and chart reviewed by CN. Barriers to discharge include no medical barriers Discharge Plan remains: [facility] aware of dc order today-transport ambulette pick out hand time is 4pm. HENS complete. CRF in dc packet and sent to [facility]. Patient aware of dc at 4p as well. CN will continue to follow and is available should any further needs arise. - Julisa Del Toro RN 07/04/24 11:25 AM Problem: Pain Goal: Patient goal is pain score less than 4, able to rest, and participant in treatment plan as appropriate Description: INTERVENTIONS: 1. Encourage patient or legal outbound telemarketing representative to report early pain and ask for pain medicine when needed 2. Assess pain using appropriate pain scale and include the scale used when documenting 3. Administer analgesics based on type and severity of pain and evaluate response within appropriate time frame 4. Implement non-pharmacological measures as appropriate and evaluate response 5. Consider cultural and social influences on pain and pain management 6. Notify LIP if interventions ineffective or patient reports new pain 7. Monitor vital signs including pulse ox, end-tidal CO2 based on pain intervention 8. Reassess pain per policy 9. Teach patient or legal outbound telemarketing representative interventions for comforting Outcome: Progressing Note: Evaluation of progress towards goal: pt not complaining of pain during shift. PRN tylenol available Problem: Safety Goal: Patient will be injury free during hospitalization Description: INTERVENTIONS: 1. Assess patient's risk for falls and implement fall prevention plan of care per policy 2. Provide and maintain a safe environment 3. Proper use of double Identifiers 4. Medication administration using the 5 rights 5. Hand hygiene 6. Specimens are labeled at the bedside 7. Instruct patient/ patient outbound telemarketing representative about use of safety devices 8. Include patient/ patient outbound telemarketing representative in decisions related to safety Outcome: Progressing Note: Evaluation of progress towards goal: Pt will remain free from injury during shift. Call light within reach, hourly rounding being completed, RN next to pt's room Problem: Infection Goal: Absence of infection during hospitalization Description: INTERVENTIONS 1. Assess and monitor for signs and symptoms of infection. 2. Monitor lab/diagnostic results. 3. Monitor all insertion sites i.e., indwelling lines, tubes and drains. 4. Monitor endotracheal (as able) and nasal secretions for changes in amount and color. 5. Administer medications as ordered. 6. Instruct and encourage patient and family to use good hand hygiene technique. 7. Identify and instruct patient/patient outbound telemarketing representative in use of appropriate isolation precautions for identified infection/symptoms. 8. Provide and discuss with patient/patient outbound telemarketing representative on educational MDRO sheet. 9. Encourage and monitor nutritional status daily and consult bariatric nurse if indicated. 10. Implement neutropenic guidelines as needed. Outcome: Progressing Note: Evaluation of progress towards goal: Pt is afebrile and will remain free from signs of infection during shift. Labs and PIV insertion site being monitored Problem: Knowledge Deficit Goal: Patient/patient outbound telemarketing representative demonstrates understanding of disease process, treatment plan, medications, and discharge instructions Description: INTERVENTIONS 1. Complete learning assessment and assess knowledge base 2. Provide teaching at level of understanding 3. Provide teaching via preferred learning method(s) Outcome: Progressing Note: Evaluation of progress towards goal: Pt updated on plan of care for shift and educated on medications. Pt verbalized understanding Problem: Discharge Planning Goal: Discharge to post-acute care, other facility, or home with appropriate resources Description: Patient's goal is: INTERVENTIONS 1. Conduct assessment to determine patient/family and health care team treatment goals, and need for post-acute services based on payer coverage, community resources, and patient preferences, and barriers to discharge 2. Coordinate with Social work, Care Navigation, and Utilization Review to arrange appropriate level of services according to patient's needs based on patient preference and payer coverage in collaboration with the physician and health care team 3. Address psychosocial, clinical, and financial barriers to discharge as identified in assessment in conjunction with the patient/family and health care team 4. Consult appropriate ancillary services (i.e.. PT/OT/ST, etc) as needed 5. Communicate with and update the patient/family, physician, and health care team regarding progress on the discharge plan 6. Identify discharge learning needs (meds, wound care, etc). 7. Arrange for needed discharge transportation as appropriate Outcome: Progressing Note: Evaluation of progress towards goal: Discharge planning in process. Plan is [facility] Problem: Potential for Compromised Skin Integrity Goal: Skin integrity is maintained or improved Description: Patient's goal is: INTERVENTIONS 1. Perform initial skin assessment on admission and as needed 2. Turn patient every 2 hours and PRN 3. Relieve pressure to bony prominences 4. Avoid shearing 5. Keep skin clean and dry 6. Alternate a full bath with partial baths for elderly 7. Apply lotion/moisturizer on skin 8. Monitor patient's hygiene practices 9. Float heels 10. Collaborate with interdisciplinary team and initiate plans and interventions as needed Outcome: Progressing Note: Evaluation of progress towards goal: pt's skin assessed during shift. No new signs of breakdown Goal: Patient's nutritional intake is adequate Description: Patient's goal is: INTERVENTIONS 1. Assess and monitor food intake and supplements, patient food preferences, nausea, vomiting, labs, oral cavity (gums, teeth, tongue, mucosa), proper denture fit, and cultural beliefs 2. Monitor for signs of hypoglycemia and hyperglycemia 3. Collaborate with interdisciplinary team and initiate plan and interventions as ordered 4. Monitor patient's weight 5. Assist patient with meals/food selection 6. Assist patient with eating 7. Allow adequate time for meals 8. Provide pleasant environment during mealtime 9. Increase social contact during mealtimes 10. Plan activities to conserve energy 11. Encourage/perform oral hygiene as appropriate 12. Encourage patient to take dietary supplement as ordered 13. Collaborate with clinical bariatric nurse 14. Include patient/ patient's outbound telemarketing representative in decisions related to nutrition Outcome: Progressing Note: Evaluation of progress towards goal: pt is consuming an adequate amt of meals Problem: Moderate - High Risk Fall Score Description: Issa Fall Score of =/> 25 or indicated by [facility] Assessment Goal: Patient should be free from fall Description: Interventions: 1. [place] to environment 2. Hourly rounds addressing the 4 P's (Pain, Positioning, Possessions, Potty) 3. Clear area of hazards (spills, clutter, electrical cords, unnecessary equipment) 4. Place equipment (bed & TV controls, call light, phone, urinal) within reach 5. Encourage patient to wear glasses and hearing aides as appropriate 6. Maintain bed in lowest position 7. Lock wheels on bed/wheelchair 8. Provide adequate lighting, including night light 9. Assess need for additional bedding, food/fluids, pain med's prior to sleep/routinely 10. Provide gripper slippers or personal non-skid footwear 11. Teach patient and patient outbound telemarketing representative to maintain environment for safety and engage in all aspects of fall prevention program 12. Remind patient to call for help before getting out of bed 13. Initiate bed/chair/exit alarms supportive devices as appropriate, (chair wedge, no-skid floor mat, raised edge mattress, hip protectors) 14. Locate patient bed assignment for optimal visualization 15. Evaluate and identify Safe Patient Handling Equipment needs 16. Provide supervision when out of bed or chair 17. Utilize gait belt as needed to assist with ambulation 18. Place adaptive equipment (cane, walker) within reach 19. Request patient outbound telemarketing representative bring adaptive equipment/mobility aids from home or obtain and provide as needed 20. Consult pharmacy regarding effects of med's affecting mobility, cognition, and alternatives 21. Obtain physician order for PT if risk factors associated with mobility are present 22. Obtain physician order for OT as appropriate 23. Utilize diversional activities 24. Educate patient and patient outbound telemarketing representative how to maintain a safe environment during visitation times (notify nurse prior to leaving bedside) 25. Consider appropriateness of medical or non-certified medical coding specialist 26. Set up voiding schedule as appropriate (every 2 hours) Outcome: Progressing Note: Evaluation of progress towards goal: Pt will remain free from falls during shift. Call light in reach, bed in lowest position, bed and chair wheels locked, 2/4 side rails up, nonslip socks on, overbed table and personal belongings within reach, hourly rounding being completed, RN next to pt's room DISCHARGE PLANNING NOTE 4:30pm Rescheduled to 4pm 2.25 per SW request. [facility] transport via [facility] confirmed in [facility] to [place] 07.04.24 at 12:00pm DISCHARGE PLANNING NOTE Prior Auth approved for admission to : [facility]/ [facility], [place], [place] (P# ; F# ) Approval # [id number] Valid for Dates: 07/03/2024-07/09/2024 Problem: Pain Goal: Patient goal is pain score less than 4, able to rest, and participant in treatment plan as appropriate Description: INTERVENTIONS: 1. Encourage patient or legal outbound telemarketing representative to report early pain and ask for pain medicine when needed 2. Assess pain using appropriate pain scale and include the scale used when documenting 3. Administer analgesics based on type and severity of pain and evaluate response within appropriate time frame 4. Implement non-pharmacological measures as appropriate and evaluate response 5. Consider cultural and social influences on pain and pain management 6. Notify LIP if interventions ineffective or patient reports new pain 7. Monitor vital signs including pulse ox, end-tidal CO2 based on pain intervention 8. Reassess pain per policy 9. Teach patient or legal outbound telemarketing representative interventions for comforting Outcome: Adequate for Discharge Note: Evaluation of progress towards goal: patient rates pain 0/10, during shift, patient vital signs and pain are assessed and charted frequently, will continue to monitor during shift Problem: Safety Goal: Patient will be injury free during hospitalization Description: INTERVENTIONS: 1. Assess patient's risk for falls and implement fall prevention plan of care per policy 2. Provide and maintain a safe environment 3. Proper use of double Identifiers 4. Medication administration using the 5 rights 5. Hand hygiene 6. Specimens are labeled at the bedside 7. Instruct patient/ patient outbound telemarketing representative about use of safety devices 8. Include patient/ patient outbound telemarketing representative in decisions related to safety Outcome: Adequate for Discharge Note: Evaluation of progress towards goal: Patient safety maintained during shift with use of 5 rights, patient and staff using hygiene, patient environment free of harm and debrie. Will continue to monitor during shift. Problem: Knowledge Deficit Goal: Patient/patient outbound telemarketing representative demonstrates understanding of disease process, treatment plan, medications, and discharge instructions Description: INTERVENTIONS 1. Complete learning assessment and assess knowledge base 2. Provide teaching at level of understanding 3. Provide teaching via preferred learning method(s) Outcome: Progressing Note: Evaluation of progress towards goal: Patient updated on POC he verbalizes understanding and voices no concerns at this time. Will continue to update and assess patient throughout shift for needs. Problem: Potential for Compromised Skin Integrity Goal: Skin integrity is maintained or improved Description: Patient's goal is: INTERVENTIONS 1. Perform initial skin assessment on admission and as needed 2. Turn patient every 2 hours and PRN 3. Relieve pressure to bony prominences 4. Avoid shearing 5. Keep skin clean and dry 6. Alternate a full bath with partial baths for elderly 7. Apply lotion/moisturizer on skin 8. Monitor patient's hygiene practices 9. Float heels 10. Collaborate with interdisciplinary team and initiate plans and interventions as needed Outcome: Not Progressing Note: Evaluation of progress towards goal: patient skin assessed and charted, patient repositioned frequently during shift, patient skin kept warm and dry and barrier cream applied to buttock during shift, will continue to monitor Problem: Urinary Incontinence Goal: Perineal skin integrity is maintained or improved Description: INTERVENTIONS 1. Assess genitourinary system, perineal skin, labs (urinalysis), and history of incontinence to include past management, aggravating, and alleviating factors 2. Keep skin clean and dry 3. Apply skin protectant 4. Develop skin care regimen 5. Provide privacy when changing patients incontinence device to maintain their dignity 6. Consider placing an indwelling catheter 7. Collaborate with interdisciplinary team and initiate plans and interventions as needed Outcome: Progressing Note: Evaluation of progress towards goal: Patient repositioned during shift, patient skin assessed and charted patient skin kept warm and dry, barrier cream used as needed during shift, patient continues use of jorgensen, will continue to monitor patient's skin during shift. Problem: Moderate - High Risk Fall Score Description: Issa Fall Score of =/> 25 or indicated by [facility] Assessment Goal: Patient should be free from fall Description: Interventions: 1. [place] to environment 2. Hourly rounds addressing the 4 P's (Pain, Positioning, Possessions, Potty) 3. Clear area of hazards (spills, clutter, electrical cords, unnecessary equipment) 4. Place equipment (bed & TV controls, call light, phone, urinal) within reach 5. Encourage patient to wear glasses and hearing aides as appropriate 6. Maintain bed in lowest position 7. Lock wheels on bed/wheelchair 8. Provide adequate lighting, including night light 9. Assess need for additional bedding, food/fluids, pain med's prior to sleep/routinely 10. Provide gripper slippers or personal non-skid footwear 11. Teach patient and patient outbound telemarketing representative to maintain environment for safety and engage in all aspects of fall prevention program 12. Remind patient to call for help before getting out of bed 13. Initiate bed/chair/exit alarms supportive devices as appropriate, (chair wedge, no-skid floor mat, raised edge mattress, hip protectors) 14. Locate patient bed assignment for optimal visualization 15. Evaluate and identify Safe Patient Handling Equipment needs 16. Provide supervision when out of bed or chair 17. Utilize gait belt as needed to assist with ambulation 18. Place adaptive equipment (cane, walker) within reach 19. Request patient outbound telemarketing representative bring adaptive equipment/mobility aids from home or obtain and provide as needed 20. Consult pharmacy regarding effects of med's affecting mobility, cognition, and alternatives 21. Obtain physician order for PT if risk factors associated with mobility are present 22. Obtain physician order for OT as appropriate 23. Utilize diversional activities 24. Educate patient and patient outbound telemarketing representative how to maintain a safe environment during visitation times (notify nurse prior to leaving bedside) 25. Consider appropriateness of medical or non-certified medical coding specialist 26. Set up voiding schedule as appropriate (every 2 hours) Outcome: Progressing Note: Evaluation of progress towards goal: Patient remains free from falls during shift, patient transfers with walker and gait belt minimal assist once upright, steady gait, 5 feet, patient continues to collaborate with PT/OT for therapy needs. patients room is free of clutter and debrie, patients bed remains locked and in lowest position, hourly rounding continues, patient uses call light to notify staff of needs, appropriate safe patient handling used during shift. Will continue to monitor during shift. DISCHARGE PLANNING NOTE Referral sent to multiple facilities or agencies due to patient is without preference. DISCHARGE PLANNING NOTE SW called patient Ashok barroso and left a voicemail asking for a return call. SW informed son in voicemail that [facility] is unable to accept due to no open bed. SW asked for a return call with additional SNF choices. - [facility] 07/03/24 8:40 AM Patient discussed today in daily transition rounds. Current Discharge Plan; SNF. Current Barriers: SNF choice, acceptance and [facility]. SW received return call from son. Patient ashok barroso is okay with blanket referral being sent and following up with him as to who can accept. - [facility] 07/03/24 10:47 AM SW left voicemail for ashok barroso asking for a return call to review accepting SNF. ADILENE called Ashok barroso again and left voicemail asking for return call. - [facility] 07/03/24 2:49 PM SW received return call from ashok barroso. Ashok would like auth to be started with [facility]. ADILENE tasked [facility] to start auth. - [facility] 07/03/24 3:03 PM SW informed patient of DC tomorrow. SW also called patient son of discharge tomorrow at 4pm. ADILENE tasked [facility] to set up transport. - [facility] 07/03/24 3:53 PM Problem: Pain Goal: Patient goal is pain score less than 4, able to rest, and participant in treatment plan as appropriate Description: INTERVENTIONS: 1. Encourage patient or legal outbound telemarketing representative to report early pain and ask for pain medicine when needed 2. Assess pain using appropriate pain scale and include the scale used when documenting 3. Administer analgesics based on type and severity of pain and evaluate response within appropriate time frame 4. Implement non-pharmacological measures as appropriate and evaluate response 5. Consider cultural and social influences on pain and pain management 6. Notify LIP if interventions ineffective or patient reports new pain 7. Monitor vital signs including pulse ox, end-tidal CO2 based on pain intervention 8. Reassess pain per policy 9. Teach patient or legal outbound telemarketing representative interventions for comforting Outcome: Progressing Note: Evaluation of progress towards goal: patient does not complain of pain at this mark, will continue to monitor during this shift Problem: Safety Goal: Patient will be injury free during hospitalization Description: INTERVENTIONS: 1. Assess patient's risk for falls and implement fall prevention plan of care per policy 2. Provide and maintain a safe environment 3. Proper use of double Identifiers 4. Medication administration using the 5 rights 5. Hand hygiene 6. Specimens are labeled at the bedside 7. Instruct patient/ patient outbound telemarketing representative about use of safety devices 8. Include patient/ patient outbound telemarketing representative in decisions related to safety Outcome: Progressing Note: Evaluation of progress towards goal: patient remains free from falls during this shift, staff using a walker with patient for ambulation, bed alarm is on Problem: Infection Goal: Absence of infection during hospitalization Description: INTERVENTIONS 1. Assess and monitor for signs and symptoms of infection. 2. Monitor lab/diagnostic results. 3. Monitor all insertion sites i.e., indwelling lines, tubes and drains. 4. Monitor endotracheal (as able) and nasal secretions for changes in amount and color. 5. Administer medications as ordered. 6. Instruct and encourage patient and family to use good hand hygiene technique. 7. Identify and instruct patient/patient outbound telemarketing representative in use of appropriate isolation precautions for identified infection/symptoms. 8. Provide and discuss with patient/patient outbound telemarketing representative on educational MDRO sheet. 9. Encourage and monitor nutritional status daily and consult bariatric nurse if indicated. 10. Implement neutropenic guidelines as needed. Outcome: Progressing Note: Evaluation of progress towards goal: patient remains afebrile, will continue to monitor labs Problem: Knowledge Deficit Goal: Patient/patient outbound telemarketing representative demonstrates understanding of disease process, treatment plan, medications, and discharge instructions Description: INTERVENTIONS 1. Complete learning assessment and assess knowledge base 2. Provide teaching at level of understanding 3. Provide teaching via preferred learning method(s) Outcome: Progressing Note: Evaluation of progress towards goal: patient verbalizes understanding the use of call light and jorgensen, will continue to educate if needed Problem: Discharge Planning Goal: Discharge to post-acute care, other facility, or home with appropriate resources Description: Patient's goal is: INTERVENTIONS 1. Conduct assessment to determine patient/family and health care team treatment goals, and need for post-acute services based on payer coverage, community resources, and patient preferences, and barriers to discharge 2. Coordinate with Social work, Care Navigation, and Utilization Review to arrange appropriate level of services according to patient's needs based on patient preference and payer coverage in collaboration with the physician and health care team 3. Address psychosocial, clinical, and financial barriers to discharge as identified in assessment in conjunction with the patient/family and health care team 4. Consult appropriate ancillary services (i.e.. PT/OT/ST, etc) as needed 5. Communicate with and update the patient/family, physician, and health care team regarding progress on the discharge plan 6. Identify discharge learning needs (meds, wound care, etc). 7. Arrange for needed discharge transportation as appropriate Outcome: Progressing Note: Evaluation of progress towards goal: planning continues Problem: Potential for Compromised Skin Integrity Goal: Skin integrity is maintained or improved Description: Patient's goal is: INTERVENTIONS 1. Perform initial skin assessment on admission and as needed 2. Turn patient every 2 hours and PRN 3. Relieve pressure to bony prominences 4. Avoid shearing 5. Keep skin clean and dry 6. Alternate a full bath with partial baths for elderly 7. Apply lotion/moisturizer on skin 8. Monitor patient's hygiene practices 9. Float heels 10. Collaborate with interdisciplinary team and initiate plans and interventions as needed Outcome: Progressing Note: Evaluation of progress towards goal: skin remains intact, no mew breakdowns or skin tears during this shift Goal: Patient's nutritional intake is adequate Description: Patient's goal is: INTERVENTIONS 1. Assess and monitor food intake and supplements, patient food preferences, nausea, vomiting, labs, oral cavity (gums, teeth, tongue, mucosa), proper denture fit, and cultural beliefs 2. Monitor for signs of hypoglycemia and hyperglycemia 3. Collaborate with interdisciplinary team and initiate plan and interventions as ordered 4. Monitor patient's weight 5. Assist patient with meals/food selection 6. Assist patient with eating 7. Allow adequate time for meals 8. Provide pleasant environment during mealtime 9. Increase social contact during mealtimes 10. Plan activities to conserve energy 11. Encourage/perform oral hygiene as appropriate 12. Encourage patient to take dietary supplement as ordered 13. Collaborate with clinical bariatric nurse 14. Include patient/ patient's outbound telemarketing representative in decisions related to nutrition Outcome: Progressing Note: Evaluation of progress towards goal: patient is eating 75% or more of meals Problem: Urinary Incontinence Goal: Perineal skin integrity is maintained or improved Description: INTERVENTIONS 1. Assess genitourinary system, perineal skin, labs (urinalysis), and history of incontinence to include past management, aggravating, and alleviating factors 2. Keep skin clean and dry 3. Apply skin protectant 4. Develop skin care regimen 5. Provide privacy when changing patients incontinence device to maintain their dignity 6. Consider placing an indwelling catheter 7. Collaborate with interdisciplinary team and initiate plans and interventions as needed Outcome: Progressing Note: Evaluation of progress towards goal: jorgensen remains in place, skin remains intact Problem: Moderate - High Risk Fall Score Description: Issa Fall Score of =/> 25 or indicated by [facility] Assessment Goal: Patient should be free from fall Description: Interventions: 1. [place] to environment 2. Hourly rounds addressing the 4 P's (Pain, Positioning, Possessions, Potty) 3. Clear area of hazards (spills, clutter, electrical cords, unnecessary equipment) 4. Place equipment (bed & TV controls, call light, phone, urinal) within reach 5. Encourage patient to wear glasses and hearing aides as appropriate 6. Maintain bed in lowest position 7. Lock wheels on bed/wheelchair 8. Provide adequate lighting, including night light 9. Assess need for additional bedding, food/fluids, pain med's prior to sleep/routinely 10. Provide gripper slippers or personal non-skid footwear 11. Teach patient and patient outbound telemarketing representative to maintain environment for safety and engage in all aspects of fall prevention program 12. Remind patient to call for help before getting out of bed 13. Initiate bed/chair/exit alarms supportive devices as appropriate, (chair wedge, no-skid floor mat, raised edge mattress, hip protectors) 14. Locate patient bed assignment for optimal visualization 15. Evaluate and identify Safe Patient Handling Equipment needs 16. Provide supervision when out of bed or chair 17. Utilize gait belt as needed to assist with ambulation 18. Place adaptive equipment (cane, walker) within reach 19. Request patient outbound telemarketing representative bring adaptive equipment/mobility aids from home or obtain and provide as needed 20. Consult pharmacy regarding effects of med's affecting mobility, cognition, and alternatives 21. Obtain physician order for PT if risk factors associated with mobility are present 22. Obtain physician order for OT as appropriate 23. Utilize diversional activities 24. Educate patient and patient outbound telemarketing representative how to maintain a safe environment during visitation times (notify nurse prior to leaving bedside) 25. Consider appropriateness of medical or non-certified medical coding specialist 26. Set up voiding schedule as appropriate (every 2 hours) Outcome: Progressing Note: Evaluation of progress towards goal: patient remains free from falls Physical Therapy Evaluation Discharge Recommendations PT Recommendations: Long-Term Facility SNF/ECF Comments: Recommend SNF as pt requires physical assistance for safe func mobility, only amb 30' with RW and min assistance, unable to care for self and requires more physical assistance than what family can safely provide. 6 Clicks: Basic Mobility Turning from your back to your side while in a flat bed without using bed rails?: A lot Moving from lying on your back to sitting on side of flat bed without using bed rails?: A lot Moving to and from bed to a chair (including w/c)?: A little Standing up from a chair using your arms (e.g. w/c or bedside chair)?: A lot To walk in hospital room?: A little Climbing 3-5 steps with a railing?: Total Scoring 6 Clicks: Basic Mobility Raw Score: 13 [facility] G Code Modifier: CK Therapy Plan Need for skilled Physical Therapy to address deficits in functional mobility due to a status decline resulting from Dx of L renal hematoma, acute hypotension, blood loss anemia. Pt adm on 06/29/24 s/p fall from standing; pt was hypotensive upon arrival. ON 06/29, pt rec'd 3 units of blood. Urology consulted for renal hematoma: pt with + hematuria. No acute interventions, keep jorgensen catheter. Pt had a recent lithotripsy and stent placed on 06/19/24 at [facility]. Past Medical History: Diagnosis Date Cardiac arrest ([facility]) 02/2024 Coronary artery disease Dementia ([facility]) Fall in home, initial encounter 06/29/2024 Hemorrhoids Hyperlipidemia Hypertension Kidney stone Memory loss Myocardial infarction ([facility]) Urinary tract infection History reviewed. No pertinent surgical history. PT Treatment/Interventions: Functional transfer training, LE strengthening/ROM, UE strengthening/ROM, Endurance training, Patient/family training, Equipment eval/education, Balance, Stair training, Bed mobility, Gait training, Functional activities, Neuromuscular reeducation (ex prog) PT Frequency: 4-5days/week (2 person assist) PT Duration: until goals met Patient Response to Treatment: (Fair tolerance, limited by fatigue.) Assessment Patient Assessment Therapy Problem List: Decreased balance, Decreased endurance, Decreased mobility (dec ex danie) Patient Response to Treatment: (Fair tolerance, limited by fatigue.) Mood/Affect: Appropriate for circumstances Rehab Prognosis: Good, With continued PT status post acute discharge Visit RN Communication: Yes Medical Record Reviewed: Yes PT Type of Visit: Evaluation Reason For Medical Deferral: Off unit Off Unit: Testing Precautions Activity: early mobility: yes/pass; BLE venous duplex testing pending/ ok for PT/OT--OOB. Equipment: gait belt, RW Telemetry/Spent Grain Dryer: Yes Oxygen Order : SpO2 90% or higher with 0-5L Oxygen Used: 3L Other: high fall risk (per Kaylah RN, no chair alarm needed), dementia, jorgensen catheter Pain Assessment Pain Assessment: No/denies pain Home Living Type of Home: House Home Layout: Two level, Able to live on main level with bedroom/bathroom Stairs to Enter: 2 Hand Rails: Left Bathroom Shower/Tub: Walk-in shower Bathroom Toilet: Standard (support near toilet) Bathroom Equipment: Grab bars in shower, Hand-held shower Home Equipment: Standard walker, Cane, Home oxygen Other : Pt has a manual recliner. Pt sleeps on a couch and has home O2 but usually doesn't wear it. Prior Function Lives With: Son (and DIL) Receives Help From: Family (Son and DIL both work) Level of Mobility: Needs assistance with ADLs or functional transfers or gait Transfers: (son assists pt in/out of shower) Mobility: Independent Toileting: Independent Bath: Min assist Dressing: Min assist Grooming: Independent Feeding: Independent Homemaking Assistance: Needs assistance Driving: Total assist Other: Family completes all IADLs Vocational: Retired ADL / IADL Hand Dominance: Right Hearing / Speech / Vision Hearing: Hard of hearing/hearing concerns (mild) Speech: Within Functional Limits Current Vision: Does not wear glasses Other: Pt kept eyes closed through majority of tx Cognition Overall Cognitive Status: Within Functional Limits Sensation Overall Sensation Status: (denies n+t) Bed Mobility Supine to Sit: Mod assist, Left (x2 with HOB elevated) Other: mod assist to scoot to EOB Transfers Sit to Stand: Mod assist, Verbal cues (x2 from elevated bed height; req'd 2 attempts d/t weakness) Stand to Sit: Mod assist, Verbal cues Other: Cues for safe hand placement/tech Gait Pattern: Decreased karime Gait Assistance: Min assist Assistive Device: Rolling walker Gait Distance: 30' Limiting Factors to Gait: Fatigue Other: Cues for safe use of RW Balance Balance Evaluation: Exceptions to Functional Limits Sitting Balance: Static: Good (minus) Sitting Balance: Dynamic: Fair Standing Balance: Static: Fair (minus) Standing Balance: Dynamic: Poor Other: amb with RW RUE Assessment: (see OT eval) LUE Assessment: (see OT eval) RLE Assessment: Exceptions to WFL (generalized deconditioning) LLE Assessment: Exceptions to WFL (generalized deconditioning) Activity Tolerance Other: Fair tolerance, limited by fatigue. Plan Physical Therapy Care Plan Physical Therapy Care Plan (Active) Template: PT - Physical Therapy Problem: Activity Tolerance Dates: Start: 07/02/24 Disciplines: PT Goal: Tolerate 30 minutes of activity WITH rest breaks Dates: Start: 07/02/24 Expected End: 07/25/24 Description: Goal Description: Pt will tolerate bilat UE/LE ex's x 10-20 reps. Disciplines: PT Problem: Bed Mobility Dates: Start: 07/02/24 Disciplines: PT Goal: Other bed mobility (Customize) Dates: Start: 07/02/24 Expected End: 07/25/24 Description: Goal Description: Pt will transfer supine<-->sidelying<-->sit with HOB elevated as needed and mod ind. Disciplines: PT Problem: Gait Dates: Start: 07/02/24 Disciplines: PT Goal: Other gait goal (Customize) Dates: Start: 07/02/24 Expected End: 07/25/24 Description: Goal Description: Pt will amb 100' with RW and SBA. Disciplines: PT Problem: Stairs/Curb Dates: Start: 07/02/24 Disciplines: PT Goal: Other stairs/curb goal (Customize) Dates: Start: 07/02/24 Expected End: 07/25/24 Description: Goal Description: Pt will amb up/down 2 steps with L handrail and CG. Disciplines: PT Problem: Standing Balance Dates: Start: 07/02/24 Disciplines: PT Goal: Other sitting and standing balance goal (customize) Dates: Start: 07/02/24 Expected End: 07/25/24 Description: Goal Description: Pt will demo good balance amb with RW. Disciplines: PT Problem: Transfers Dates: Start: 07/02/24 Disciplines: PT Goal: Patient will perform transfers with Modified [place] Dates: Start: 07/02/24 Expected End: 07/25/24 Description: Goal Description: Disciplines: PT Physical Therapy Care Plan (Resolved) There are no resolved problems. Principal Problem: Fall in home, initial encounter Occupational Therapy Evaluation Discharge Recommendations OT Recommendations : Long-Term Facility SNF/ECF Comments: recommend SNF at discharge for continued skilled therapy services to increase strength, endurance and balance for safe functional return home w/ ADLs, transfers and functional mobility 6 Clicks: Daily Activity Putting on and taking off regular lower body clothing?: A lot Bathing (including washing, rinsing, drying)?: A lot Toileting, which includes using toilet, bedpan or urinal?: Total Putting on and taking off regular upper body clothing?: A lot Taking care of personal grooming such as brushing teeth?: A little Eating meals?: A little Scoring Daily Activity Raw Score: 13 CMS G Code Modifier: CL Pt admit 06/29/24 after fall from standing. Pt hypotensive on arrival s/p 3 units of PRBC. Dx: L renal hematoma, hypotension, acute blood loss anemia Urology consulted. Pt with hematuria, maintain jorgensen catheter. Pt with h/o lithotripsy with stent placement at [facility] on 06/19/24 Past Medical History: Diagnosis Date Cardiac arrest ([facility]) 02/2024 Coronary artery disease Dementia ([facility]) Fall in home, initial encounter 06/29/2024 Hemorrhoids Hyperlipidemia Hypertension Kidney stone Memory loss Myocardial infarction ([facility]) Urinary tract infection History reviewed. No pertinent surgical history. Therapy Plan Need for skilled Occupational Therapy to address deficits in ADL independence and functional mobility due to a status decline resulting from decreased endurance, strength and balance d/t fall. OT Treatment/Interventions: ADL retraining, Functional transfer training, UE strengthening/ROM, Endurance training, Patient/family training, Equipment eval/education, Balance, Bed mobility, Gait training, Compensatory technique education, Functional activities OT Frequency: 4-5days/week (2 person assist) OT Duration: length of stay Assessment Patient Assessment Therapy Problem List: Decreased ADL status, Decreased balance, Decreased endurance, Decreased mobility, Decreased safe judgement during ADL, Decreased self-care trans, Decreased UE strength Patient Response to Treatment: Tolerated evaluation without adverse reaction Mood/Affect: Appropriate for circumstances Rehab Prognosis: Good, With continued OT status post acute discharge Visit RN Communication: Yes Medical Record Reviewed: Yes OT Type of Visit: Evaluation Reason For Medical Deferral: Off unit Off Unit: Testing Activity Limitations: Strict bedrest Precautions Activity: early mobility guideline:yes, pass Equipment: gait belt, RW Telemetry/Spent Grain Dryer: Yes Oxygen Order : spo2 90% or higher with 0-5L Oxygen Used: 3L Other: high fall risk (per RN no chair alarm needed), jorgensen catheter Pain Assessment Pain Assessment: No/denies pain Home Living Type of Home: House Home Layout: Two level, Able to live on main level with bedroom/bathroom Stairs to Enter: 2 Hand Rails: Left Bathroom Shower/Tub: Walk-in shower Bathroom Toilet: Standard Bathroom Equipment: Grab bars in shower, Hand-held shower (pt believes grab bar in shower, support near the toilet) Home Equipment: Standard walker, Cane, Home oxygen (manual recliner chair) Other : pt reports no use of AD prior to admission. pt states he sleeps on the couch and has home oxygen but does not typically wear it Prior Function Lives With: Son, Other (Comment) (pt lives w/ his son and DIL) Receives Help From: Family (son and DIL both work) Level of Mobility: Needs assistance with ADLs or functional transfers or gait Transfers: Independent (pt has assist from son in/out of the shower) Mobility: Independent Toileting: Independent Bath: Min assist Dressing: Min assist Grooming: Independent Feeding: Independent Homemaking Assistance: Needs assistance Driving: Total assist Other: pt reports his family does the house hold IADLs Vocational: Retired ADL / IADL Hand Dominance: Right Where Assessed: Supine, bed, Edge of bed, Chair Eating Assistance: Standby assist, Setup (beverage management) Grooming Assistance: Mod assist, Setup (seated) Bathing/Showering Assistance: Max assist Toilet/Commode Assistance: Total assist (jorgensen catheter, anuja care) UE Dressing Assistance: Mod assist LE Dressing Assistance: Max assist Footwear Assistance: Max assist Footwear Deficit: R sock, L sock Hearing / Speech / Vision Hearing: Hard of hearing/hearing concerns (mild) Speech: Within Functional Limits Current Vision: Does not wear glasses Other: pt kept his eyes closed through majority of evaluation Cognition Overall Cognitive Status: Within Functional Limits Orientation Level: Oriented X4 Sensation Overall Sensation Status: (pt denies numbness/tingling) Bed Mobility Supine to Sit: Left, Mod assist (x2 with HOB slightly elevated) Sit to Supine: (up in chair w/ call light) Other: mod assist to scoot edge of bed in preparation for standing Transfers Sit to Stand: Mod assist, Verbal cues (x2 from elevated surface height. 2 attempts needed) Stand to Sit: Mod assist, Verbal cues Bed to Chair: Min assist (w/ use of RW) Other: verbal cues needed for safe transfer technique w/ use of RW Gait Pattern: Decreased karime Gait Assistance: Min assist Assistive Device: Rolling walker Gait Distance: 30' Limiting Factors to Gait: Fatigue Balance Balance Evaluation: Exceptions to Functional Limits Sitting Balance: Dynamic: Fair Standing Balance: Static: Fair (fair-) Standing Balance: Dynamic: Poor Other: RW upper extrem support when standing, ambulating RUE Assessment: Exceptions to WFL (generalized weakness) LUE Assessment: Exceptions to WFL (generalized weakness) Activity Tolerance Endurance: Tolerates <30 minutes activity WITHOUT vital sign changes Other: pt reports feeling worn out after sitting up EOB and amb 30' in the hospital room Plan Occupational Therapy Care Plan Occupational Therapy Care Plan (Active) Template: OT - Occupational Therapy Problem: Activity Tolerance Dates: Start: 07/02/24 Disciplines: OT Goal: Tolerate > 30 minutes of activity WITHOUT rest breaks Dates: Start: 07/02/24 Expected End: 07/23/24 Description: Goal Description: Disciplines: OT Problem: Bathing LB Dates: Start: 07/02/24 Disciplines: OT Goal: Patient will perform bathing LB with Minimum Assist Dates: Start: 07/02/24 Expected End: 07/23/24 Description: Goal Description: Disciplines: OT Problem: Bathing UB Dates: Start: 07/02/24 Disciplines: OT Goal: Patient will perform bathing UB with Minimum Assist Dates: Start: 07/02/24 Expected End: 07/23/24 Description: Goal Description: Disciplines: OT Problem: Bed Mobility Dates: Start: 07/02/24 Disciplines: OT Goal: Patient will perform bed mobility with Stand By Assist Dates: Start: 07/02/24 Expected End: 07/23/24 Description: Goal Description: Disciplines: OT Problem: Dressing LB Dates: Start: 07/02/24 Disciplines: OT Goal: Patient will perform dressing LB with Minimum Assist Dates: Start: 07/02/24 Expected End: 07/23/24 Description: Goal Description: Disciplines: OT Problem: Dressing UB Dates: Start: 07/02/24 Disciplines: OT Goal: Patient will perform dressing UB with Minimum Assist Dates: Start: 07/02/24 Expected End: 07/23/24 Description: Goal Description: Disciplines: OT Problem: Functional Mobility Dates: Start: 07/02/24 Disciplines: OT Goal: Patient will perform functional mobility with Stand By Assist Dates: Start: 07/02/24 Expected End: 07/23/24 Description: Goal Description: Disciplines: OT Problem: Grooming Dates: Start: 07/02/24 Disciplines: OT Goal: Patient will perform grooming with Set-Up Dates: Start: 07/02/24 Expected End: 07/23/24 Description: Goal Description: Disciplines: OT Problem: Sitting Balance Dates: Start: 07/02/24 Disciplines: OT Goal: Improve balance to good Dates: Start: 07/02/24 Expected End: 07/23/24 Description: Pt will demo good sitting balance 100% of the time. Disciplines: OT Problem: Standing Balance Dates: Start: 07/02/24 Disciplines: OT Goal: Improve balance to good Dates: Start: 07/02/24 Expected End: 07/23/24 Description: Pt will demo good standing balance w/ use of AD for 5-8 minutes Disciplines: OT Problem: Strength Dates: Start: 07/02/24 Disciplines: OT Goal: Improve strength Dates: Start: 07/02/24 Expected End: 07/23/24 Description: Of extremity/ location:pt will demo good understanding, tolerance for B UE HEP To facilitate: Disciplines: OT Problem: Toilet Transfers Dates: Start: 07/02/24 Disciplines: OT Goal: Patient will perform toilet transfers with Stand By Assist Dates: Start: 07/02/24 Expected End: 07/23/24 Description: Goal Description: Disciplines: OT Problem: Toileting Dates: Start: 07/02/24 Disciplines: OT Goal: Patient will perform toileting with Stand By Assist Dates: Start: 07/02/24 Expected End: 07/23/24 Description: Goal Description: Disciplines: OT Problem: Transfers Dates: Start: 07/02/24 Disciplines: OT Goal: Patient will perform transfers with Stand By Assist Dates: Start: 07/02/24 Expected End: 07/23/24 Description: Goal Description: Disciplines: OT Occupational Therapy Care Plan (Resolved) There are no resolved problems. Principal Problem: Fall in home, initial encounter Problem: Pain Goal: Patient goal is pain score less than 4, able to rest, and participant in treatment plan as appropriate Description: INTERVENTIONS: 1. Encourage patient or legal outbound telemarketing representative to report early pain and ask for pain medicine when needed 2. Assess pain using appropriate pain scale and include the scale used when documenting 3. Administer analgesics based on type and severity of pain and evaluate response within appropriate time frame 4. Implement non-pharmacological measures as appropriate and evaluate response 5. Consider cultural and social influences on pain and pain management 6. Notify LIP if interventions ineffective or patient reports new pain 7. Monitor vital signs including pulse ox, end-tidal CO2 based on pain intervention 8. Reassess pain per policy 9. Teach patient or legal outbound telemarketing representative interventions for comforting Outcome: Progressing Note: Evaluation of progress towards goal: pt denies pain at this time. Will continue to assess Problem: Safety Goal: Patient will be injury free during hospitalization Description: INTERVENTIONS: 1. Assess patient's risk for falls and implement fall prevention plan of care per policy 2. Provide and maintain a safe environment 3. Proper use of double Identifiers 4. Medication administration using the 5 rights 5. Hand hygiene 6. Specimens are labeled at the bedside 7. Instruct patient/ patient outbound telemarketing representative about use of safety devices 8. Include patient/ patient outbound telemarketing representative in decisions related to safety Outcome: Progressing Note: Evaluation of progress towards goal: bed is locked and in lowest position. Call light within reach and hourly rounding maintained. PT to see Problem: Infection Goal: Absence of infection during hospitalization Description: INTERVENTIONS 1. Assess and monitor for signs and symptoms of infection. 2. Monitor lab/diagnostic results. 3. Monitor all insertion sites i.e., indwelling lines, tubes and drains. 4. Monitor endotracheal (as able) and nasal secretions for changes in amount and color. 5. Administer medications as ordered. 6. Instruct and encourage patient and family to use good hand hygiene technique. 7. Identify and instruct patient/patient outbound telemarketing representative in use of appropriate isolation precautions for identified infection/symptoms. 8. Provide and discuss with patient/patient outbound telemarketing representative on educational MDRO sheet. 9. Encourage and monitor nutritional status daily and consult bariatric nurse if indicated. 10. Implement neutropenic guidelines as needed. Outcome: Progressing Note: Evaluation of progress towards goal: pt is afebrile and free from s/s of infection. Will continue to monitor Problem: Knowledge Deficit Goal: Patient/patient outbound telemarketing representative demonstrates understanding of disease process, treatment plan, medications, and discharge instructions Description: INTERVENTIONS 1. Complete learning assessment and assess knowledge base 2. Provide teaching at level of understanding 3. Provide teaching via preferred learning method(s) Outcome: Progressing Note: Evaluation of progress towards goal: plan of care explained to patient Problem: Discharge Planning Goal: Discharge to post-acute care, other facility, or home with appropriate resources Description: Patient's goal is: INTERVENTIONS 1. Conduct assessment to determine patient/family and health care team treatment goals, and need for post-acute services based on payer coverage, community resources, and patient preferences, and barriers to discharge 2. Coordinate with Social work, Care Navigation, and Utilization Review to arrange appropriate level of services according to patient's needs based on patient preference and payer coverage in collaboration with the physician and health care team 3. Address psychosocial, clinical, and financial barriers to discharge as identified in assessment in conjunction with the patient/family and health care team 4. Consult appropriate ancillary services (i.e.. PT/OT/ST, etc) as needed 5. Communicate with and update the patient/family, physician, and health care team regarding progress on the discharge plan 6. Identify discharge learning needs (meds, wound care, etc). 7. Arrange for needed discharge transportation as appropriate Outcome: Progressing Note: Evaluation of progress towards goal: In progress Problem: Potential for Compromised Skin Integrity Goal: Skin integrity is maintained or improved Description: Patient's goal is: INTERVENTIONS 1. Perform initial skin assessment on admission and as needed 2. Turn patient every 2 hours and PRN 3. Relieve pressure to bony prominences 4. Avoid shearing 5. Keep skin clean and dry 6. Alternate a full bath with partial baths for elderly 7. Apply lotion/moisturizer on skin 8. Monitor patient's hygiene practices 9. Float heels 10. Collaborate with interdisciplinary team and initiate plans and interventions as needed Outcome: Progressing Note: Evaluation of progress towards goal: pt skin is clean, dry, and intact. Goal: Patient's nutritional intake is adequate Description: Patient's goal is: INTERVENTIONS 1. Assess and monitor food intake and supplements, patient food preferences, nausea, vomiting, labs, oral cavity (gums, teeth, tongue, mucosa), proper denture fit, and cultural beliefs 2. Monitor for signs of hypoglycemia and hyperglycemia 3. Collaborate with interdisciplinary team and initiate plan and interventions as ordered 4. Monitor patient's weight 5. Assist patient with meals/food selection 6. Assist patient with eating 7. Allow adequate time for meals 8. Provide pleasant environment during mealtime 9. Increase social contact during mealtimes 10. Plan activities to conserve energy 11. Encourage/perform oral hygiene as appropriate 12. Encourage patient to take dietary supplement as ordered 13. Collaborate with clinical bariatric nurse 14. Include patient/ patient's outbound telemarketing representative in decisions related to nutrition Outcome: Progressing Note: Evaluation of progress towards goal: Pt nutritional intake will be monitored during this shift Problem: Urinary Incontinence Goal: Perineal skin integrity is maintained or improved Description: INTERVENTIONS 1. Assess genitourinary system, perineal skin, labs (urinalysis), and history of incontinence to include past management, aggravating, and alleviating factors 2. Keep skin clean and dry 3. Apply skin protectant 4. Develop skin care regimen 5. Provide privacy when changing patients incontinence device to maintain their dignity 6. Consider placing an indwelling catheter 7. Collaborate with interdisciplinary team and initiate plans and interventions as needed Outcome: Progressing Note: Evaluation of progress towards goal: jorgensen remains in place. Skin is clean, dry, and intact Problem: Moderate - High Risk Fall Score Description: Issa Fall Score of =/> 25 or indicated by [facility] Assessment Goal: Patient should be free from fall Description: Interventions: 1. [place] to environment 2. Hourly rounds addressing the 4 P's (Pain, Positioning, Possessions, Potty) 3. Clear area of hazards (spills, clutter, electrical cords, unnecessary equipment) 4. Place equipment (bed & TV controls, call light, phone, urinal) within reach 5. Encourage patient to wear glasses and hearing aides as appropriate 6. Maintain bed in lowest position 7. Lock wheels on bed/wheelchair 8. Provide adequate lighting, including night light 9. Assess need for additional bedding, food/fluids, pain med's prior to sleep/routinely 10. Provide gripper slippers or personal non-skid footwear 11. Teach patient and patient outbound telemarketing representative to maintain environment for safety and engage in all aspects of fall prevention program 12. Remind patient to call for help before getting out of bed 13. Initiate bed/chair/exit alarms supportive devices as appropriate, (chair wedge, no-skid floor mat, raised edge mattress, hip protectors) 14. Locate patient bed assignment for optimal visualization 15. Evaluate and identify Safe Patient Handling Equipment needs 16. Provide supervision when out of bed or chair 17. Utilize gait belt as needed to assist with ambulation 18. Place adaptive equipment (cane, walker) within reach 19. Request patient outbound telemarketing representative bring adaptive equipment/mobility aids from home or obtain and provide as needed 20. Consult pharmacy regarding effects of med's affecting mobility, cognition, and alternatives 21. Obtain physician order for PT if risk factors associated with mobility are present 22. Obtain physician order for OT as appropriate 23. Utilize diversional activities 24. Educate patient and patient outbound telemarketing representative how to maintain a safe environment during visitation times (notify nurse prior to leaving bedside) 25. Consider appropriateness of medical or non-certified medical coding specialist 26. Set up voiding schedule as appropriate (every 2 hours) Outcome: Progressing Note: Evaluation of progress towards goal: bed is locked and in lowest position. Call light within reach and hourly rounding maintained DISCHARGE PLANNING NOTE Case discussed in daily transition rounds and chart reviewed by CN. Barriers to discharge include PT/OT recommendations. Duplex BLE, Jorgensen-hematuria, restarted eliquis watching Hgb. H&H q12 Discharge Plan remains: Home with son pending PT/OT recommendations. CN will continue to follow and is available should any further needs arise. - Julisa Del Toro RN 07/02/24 11:04 AM PT/OT recommend SNF. List given to patient. Patient Stated his son makes all the decisions. Called son Ashok. Ashok would like [facility]-he has been there before. Referral sent. - Julisa Del Toro RN 07/02/24 3:38 PM Physical Therapy PT Type of Visit: Medical deferral Reason For Medical Deferral: Off unit Off Unit: Testing Occupational Therapy OT Type of Visit: Medical deferral Reason For Medical Deferral: Off unit Off Unit: Testing Activity Limitations: Strict bedrest Occupational Therapy OT Type of Visit: Medical deferral Reason For Medical Deferral: Activity limitations Activity Limitations: Strict bedrest cont as time allows once pt has increased activity orders Problem: Pain Goal: Patient goal is pain score less than 4, able to rest, and participant in treatment plan as appropriate Description: INTERVENTIONS: 1. Encourage patient or legal outbound telemarketing representative to report early pain and ask for pain medicine when needed 2. Assess pain using appropriate pain scale and include the scale used when documenting 3. Administer analgesics based on type and severity of pain and evaluate response within appropriate time frame 4. Implement non-pharmacological measures as appropriate and evaluate response 5. Consider cultural and social influences on pain and pain management 6. Notify LIP if interventions ineffective or patient reports new pain 7. Monitor vital signs including pulse ox, end-tidal CO2 based on pain intervention 8. Reassess pain per policy 9. Teach patient or legal outbound telemarketing representative interventions for comforting Outcome: Progressing Note: Evaluation of progress towards goal: patient does not complain of pain at this time, will continue to monitor Problem: Safety Goal: Patient will be injury free during hospitalization Description: INTERVENTIONS: 1. Assess patient's risk for falls and implement fall prevention plan of care per policy 2. Provide and maintain a safe environment 3. Proper use of double Identifiers 4. Medication administration using the 5 rights 5. Hand hygiene 6. Specimens are labeled at the bedside 7. Instruct patient/ patient outbound telemarketing representative about use of safety devices 8. Include patient/ patient outbound telemarketing representative in decisions related to safety Outcome: Progressing Note: Evaluation of progress towards goal: patient remains free from falls, bed alarm is on, patient encouraged to use call light Problem: Infection Goal: Absence of infection during hospitalization Description: INTERVENTIONS 1. Assess and monitor for signs and symptoms of infection. 2. Monitor lab/diagnostic results. 3. Monitor all insertion sites i.e., indwelling lines, tubes and drains. 4. Monitor endotracheal (as able) and nasal secretions for changes in amount and color. 5. Administer medications as ordered. 6. Instruct and encourage patient and family to use good hand hygiene technique. 7. Identify and instruct patient/patient outbound telemarketing representative in use of appropriate isolation precautions for identified infection/symptoms. 8. Provide and discuss with patient/patient outbound telemarketing representative on educational MDRO sheet. 9. Encourage and monitor nutritional status daily and consult bariatric nurse if indicated. 10. Implement neutropenic guidelines as needed. Outcome: Progressing Note: Evaluation of progress towards goal: patient remains afebrile, will continue to monitor labs Problem: Knowledge Deficit Goal: Patient/patient outbound telemarketing representative demonstrates understanding of disease process, treatment plan, medications, and discharge instructions Description: INTERVENTIONS 1. Complete learning assessment and assess knowledge base 2. Provide teaching at level of understanding 3. Provide teaching via preferred learning method(s) Outcome: Progressing Note: Evaluation of progress towards goal: patient needs reinforced education on incentive spirometer Problem: Discharge Planning Goal: Discharge to post-acute care, other facility, or home with appropriate resources Description: Patient's goal is: INTERVENTIONS 1. Conduct assessment to determine patient/family and health care team treatment goals, and need for post-acute services based on payer coverage, community resources, and patient preferences, and barriers to discharge 2. Coordinate with Social work, Care Navigation, and Utilization Review to arrange appropriate level of services according to patient's needs based on patient preference and payer coverage in collaboration with the physician and health care team 3. Address psychosocial, clinical, and financial barriers to discharge as identified in assessment in conjunction with the patient/family and health care team 4. Consult appropriate ancillary services (i.e.. PT/OT/ST, etc) as needed 5. Communicate with and update the patient/family, physician, and health care team regarding progress on the discharge plan 6. Identify discharge learning needs (meds, wound care, etc). 7. Arrange for needed discharge transportation as appropriate Outcome: Progressing Note: Evaluation of progress towards goal: planning continues Problem: Potential for Compromised Skin Integrity Goal: Skin integrity is maintained or improved Description: Patient's goal is: INTERVENTIONS 1. Perform initial skin assessment on admission and as needed 2. Turn patient every 2 hours and PRN 3. Relieve pressure to bony prominences 4. Avoid shearing 5. Keep skin clean and dry 6. Alternate a full bath with partial baths for elderly 7. Apply lotion/moisturizer on skin 8. Monitor patient's hygiene practices 9. Float heels 10. Collaborate with interdisciplinary team and initiate plans and interventions as needed Outcome: Progressing Note: Evaluation of progress towards goal: skin remains intact, no new breakdowns or tears Problem: Urinary Incontinence Goal: Perineal skin integrity is maintained or improved Description: INTERVENTIONS 1. Assess genitourinary system, perineal skin, labs (urinalysis), and history of incontinence to include past management, aggravating, and alleviating factors 2. Keep skin clean and dry 3. Apply skin protectant 4. Develop skin care regimen 5. Provide privacy when changing patients incontinence device to maintain their dignity 6. Consider placing an indwelling catheter 7. Collaborate with interdisciplinary team and initiate plans and interventions as needed Outcome: Progressing Note: Evaluation of progress towards goal: jorgensen remains in place, skin remains intact Problem: Moderate - High Risk Fall Score Description: Issa Fall Score of =/> 25 or indicated by [facility] Assessment Goal: Patient should be free from fall Description: Interventions: 1. [place] to environment 2. Hourly rounds addressing the 4 P's (Pain, Positioning, Possessions, Potty) 3. Clear area of hazards (spills, clutter, electrical cords, unnecessary equipment) 4. Place equipment (bed & TV controls, call light, phone, urinal) within reach 5. Encourage patient to wear glasses and hearing aides as appropriate 6. Maintain bed in lowest position 7. Lock wheels on bed/wheelchair 8. Provide adequate lighting, including night light 9. Assess need for additional bedding, food/fluids, pain med's prior to sleep/routinely 10. Provide gripper slippers or personal non-skid footwear 11. Teach patient and patient outbound telemarketing representative to maintain environment for safety and engage in all aspects of fall prevention program 12. Remind patient to call for help before getting out of bed 13. Initiate bed/chair/exit alarms supportive devices as appropriate, (chair wedge, no-skid floor mat, raised edge mattress, hip protectors) 14. Locate patient bed assignment for optimal visualization 15. Evaluate and identify Safe Patient Handling Equipment needs 16. Provide supervision when out of bed or chair 17. Utilize gait belt as needed to assist with ambulation 18. Place adaptive equipment (cane, walker) within reach 19. Request patient outbound telemarketing representative bring adaptive equipment/mobility aids from home or obtain and provide as needed 20. Consult pharmacy regarding effects of med's affecting mobility, cognition, and alternatives 21. Obtain physician order for PT if risk factors associated with mobility are present 22. Obtain physician order for OT as appropriate 23. Utilize diversional activities 24. Educate patient and patient outbound telemarketing representative how to maintain a safe environment during visitation times (notify nurse prior to leaving bedside) 25. Consider appropriateness of medical or non-certified medical coding specialist 26. Set up voiding schedule as appropriate (every 2 hours) Outcome: Progressing Note: Evaluation of progress towards goal: patient remains free from falls Images from the original note were not included. DISCHARGE PLANNING NOTE Internal Recruiter met with patient, introduced self, and explained role. Patient educated on safe discharge plan. Pt admitted 06/29/2024 with Acute blood loss anemia [D62] Fall in home, initial encounter [W19.XXXA, Y92.009] per chart review. Consults: Trauma and Urology Discharge Barriers per Daily Transition Rounds and chart review: PT/OT eval, bilat duplex, oxygen, H&H q12 Past Medical History: Diagnosis Date Cardiac arrest ([facility]) 02/2024 Coronary artery disease Dementia ([facility]) Fall in home, initial encounter 06/29/2024 Hemorrhoids Hyperlipidemia Hypertension Kidney stone Memory loss Myocardial infarction ([facility]) Urinary tract infection Prior to admission patient was living with family and partial assistance. Medical equipment patient used prior to admission includes: Cane, Nebulizer, and Shower Chair. Patient denies need for transportation/ food/ prescription medication assistance resources. Patient currently lives with son and daughter in law. His house is 2 story and has 2 steps into house. Has a shower chair and cane and nebulizer. Has someone come visit at his sons home but unsure of who. At his home its a one level and has 2 steps into home. PCP: REINALDO CHAKRABORTY Pharmacy: [facility] PCP and pharmacy confirmed with patient. CN offered to assist with follow up appointment arrangements; patient declines - states will self-schedule follow up appointments son and daughter in law do for him REINALDO CHAKRABORTY added to Follow Up Providers for Summary of Care communication. Per patient self-report: Drug use: denies Smoking: denies ETOH Use: denies Current discharge plan is: dc to son and daughter in laws house Sons address is [address] [place] [address] Services Requested: Services Requested Patient expects to be discharged to:: home Discharge Disposition: Home with self care (lives with son) Goals: Goals <enter goal here> (pt-stated) Evaluation of progress towards goal: home with son and daughter in law Will continue to follow as plan of care develops. CN discussed benefits and importance of medication compliance and follow ups. Please feel free to reach out for any discharge planning questions. - Julisa Del Toro RN 07/01/24 2:01 PM Problem: Pain Goal: Patient goal is pain score less than 4, able to rest, and participant in treatment plan as appropriate Description: INTERVENTIONS: 1. Encourage patient or legal outbound telemarketing representative to report early pain and ask for pain medicine when needed 2. Assess pain using appropriate pain scale and include the scale used when documenting 3. Administer analgesics based on type and severity of pain and evaluate response within appropriate time frame 4. Implement non-pharmacological measures as appropriate and evaluate response 5. Consider cultural and social influences on pain and pain management 6. Notify LIP if interventions ineffective or patient reports new pain 7. Monitor vital signs including pulse ox, end-tidal CO2 based on pain intervention 8. Reassess pain per policy 9. Teach patient or legal outbound telemarketing representative interventions for comforting Outcome: Progressing Note: Evaluation of progress towards goal: Patient verbalizes pain on 0-10 scale. PRN analgesic medication available and given as needed. with pain reassessed per policy. Comfort measures in place and hourly rounding maintained Problem: Safety Goal: Patient will be injury free during hospitalization Description: INTERVENTIONS: 1. Assess patient's risk for falls and implement fall prevention plan of care per policy 2. Provide and maintain a safe environment 3. Proper use of double Identifiers 4. Medication administration using the 5 rights 5. Hand hygiene 6. Specimens are labeled at the bedside 7. Instruct patient/ patient outbound telemarketing representative about use of safety devices 8. Include patient/ patient outbound telemarketing representative in decisions related to safety Outcome: Progressing Note: Evaluation of progress towards goal: Patient remains free from falls and injury, fall risk ID band on, fall prevention education and precautions provided and in place. Hourly rounds maintained, call light in reach, and safety measures in place. Problem: Infection Goal: Absence of infection during hospitalization Description: INTERVENTIONS 1. Assess and monitor for signs and symptoms of infection. 2. Monitor lab/diagnostic results. 3. Monitor all insertion sites i.e., indwelling lines, tubes and drains. 4. Monitor endotracheal (as able) and nasal secretions for changes in amount and color. 5. Administer medications as ordered. 6. Instruct and encourage patient and family to use good hand hygiene technique. 7. Identify and instruct patient/patient outbound telemarketing representative in use of appropriate isolation precautions for identified infection/symptoms. 8. Provide and discuss with patient/patient outbound telemarketing representative on educational MDRO sheet. 9. Encourage and monitor nutritional status daily and consult bariatric nurse if indicated. 10. Implement neutropenic guidelines as needed. Outcome: Progressing Note: Evaluation of progress towards goal: Problem: Knowledge Deficit Goal: Patient/patient outbound telemarketing representative demonstrates understanding of disease process, treatment plan, medications, and discharge instructions Description: INTERVENTIONS 1. Complete learning assessment and assess knowledge base 2. Provide teaching at level of understanding 3. Provide teaching via preferred learning method(s) Outcome: Progressing Note: Evaluation of progress towards goal: Explanation of plan of care provided to Patient. Patient verbalizes understanding of plan of care. Re-enforcement provided as needed. Will continue to monitor for understanding. Problem: Discharge Planning Goal: Discharge to post-acute care, other facility, or home with appropriate resources Description: Patient's goal is: INTERVENTIONS 1. Conduct assessment to determine patient/family and health care team treatment goals, and need for post-acute services based on payer coverage, community resources, and patient preferences, and barriers to discharge 2. Coordinate with Social work, Care Navigation, and Utilization Review to arrange appropriate level of services according to patient's needs based on patient preference and payer coverage in collaboration with the physician and health care team 3. Address psychosocial, clinical, and financial barriers to discharge as identified in assessment in conjunction with the patient/family and health care team 4. Consult appropriate ancillary services (i.e.. PT/OT/ST, etc) as needed 5. Communicate with and update the patient/family, physician, and health care team regarding progress on the discharge plan 6. Identify discharge learning needs (meds, wound care, etc). 7. Arrange for needed discharge transportation as appropriate Outcome: Progressing Note: Evaluation of progress towards goal: Discharge plan on-going and reviewed daily during daily transition rounds with ancillary services. Problem: Potential for Compromised Skin Integrity Goal: Skin integrity is maintained or improved Description: Patient's goal is: INTERVENTIONS 1. Perform initial skin assessment on admission and as needed 2. Turn patient every 2 hours and PRN 3. Relieve pressure to bony prominences 4. Avoid shearing 5. Keep skin clean and dry 6. Alternate a full bath with partial baths for elderly 7. Apply lotion/moisturizer on skin 8. Monitor patient's hygiene practices 9. Float heels 10. Collaborate with interdisciplinary team and initiate plans and interventions as needed Outcome: Progressing Note: Evaluation of progress towards goal: Discharge plan on-going and reviewed daily during daily transition rounds with ancillary services. Goal: Patient's nutritional intake is adequate Description: Patient's goal is: INTERVENTIONS 1. Assess and monitor food intake and supplements, patient food preferences, nausea, vomiting, labs, oral cavity (gums, teeth, tongue, mucosa), proper denture fit, and cultural beliefs 2. Monitor for signs of hypoglycemia and hyperglycemia 3. Collaborate with interdisciplinary team and initiate plan and interventions as ordered 4. Monitor patient's weight 5. Assist patient with meals/food selection 6. Assist patient with eating 7. Allow adequate time for meals 8. Provide pleasant environment during mealtime 9. Increase social contact during mealtimes 10. Plan activities to conserve energy 11. Encourage/perform oral hygiene as appropriate 12. Encourage patient to take dietary supplement as ordered 13. Collaborate with clinical bariatric nurse 14. Include patient/ patient's outbound telemarketing representative in decisions related to nutrition Outcome: Progressing Note: Evaluation of progress towards goal: Problem: Urinary Incontinence Goal: Perineal skin integrity is maintained or improved Description: INTERVENTIONS 1. Assess genitourinary system, perineal skin, labs (urinalysis), and history of incontinence to include past management, aggravating, and alleviating factors 2. Keep skin clean and dry 3. Apply skin protectant 4. Develop skin care regimen 5. Provide privacy when changing patients incontinence device to maintain their dignity 6. Consider placing an indwelling catheter 7. Collaborate with interdisciplinary team and initiate plans and interventions as needed Outcome: Progressing Note: Evaluation of progress towards goal: Problem: Moderate - High Risk Fall Score Description: Issa Fall Score of =/> 25 or indicated by [facility] Assessment Goal: Patient should be free from fall Description: Interventions: 1. [place] to environment 2. Hourly rounds addressing the 4 P's (Pain, Positioning, Possessions, Potty) 3. Clear area of hazards (spills, clutter, electrical cords, unnecessary equipment) 4. Place equipment (bed & TV controls, call light, phone, urinal) within reach 5. Encourage patient to wear glasses and hearing aides as appropriate 6. Maintain bed in lowest position 7. Lock wheels on bed/wheelchair 8. Provide adequate lighting, including night light 9. Assess need for additional bedding, food/fluids, pain med's prior to sleep/routinely 10. Provide gripper slippers or personal non-skid footwear 11. Teach patient and patient outbound telemarketing representative to maintain environment for safety and engage in all aspects of fall prevention program 12. Remind patient to call for help before getting out of bed 13. Initiate bed/chair/exit alarms supportive devices as appropriate, (chair wedge, no-skid floor mat, raised edge mattress, hip protectors) 14. Locate patient bed assignment for optimal visualization 15. Evaluate and identify Safe Patient Handling Equipment needs 16. Provide supervision when out of bed or chair 17. Utilize gait belt as needed to assist with ambulation 18. Place adaptive equipment (cane, walker) within reach 19. Request patient outbound telemarketing representative bring adaptive equipment/mobility aids from home or obtain and provide as needed 20. Consult pharmacy regarding effects of med's affecting mobility, cognition, and alternatives 21. Obtain physician order for PT if risk factors associated with mobility are present 22. Obtain physician order for OT as appropriate 23. Utilize diversional activities 24. Educate patient and patient outbound telemarketing representative how to maintain a safe environment during visitation times (notify nurse prior to leaving bedside) 25. Consider appropriateness of medical or non-certified medical coding specialist 26. Set up voiding schedule as appropriate (every 2 hours) Outcome: Progressing Note: Evaluation of progress towards goal: Patient remains free from falls and injury, fall risk ID band on, fall prevention education and precautions provided and in place. Hourly rounds maintained, call light in reach, and safety measures in place. Additional Comments: Physical Therapy PT Type of Visit: Medical deferral Reason For Medical Deferral: RN deems inappropriate, Activity limitations RN Deems Inappropriate: Failed MOVES safety screen Activity Limitations: Strict bedrest Occupational Therapy OT Type of Visit: Medical deferral Reason For Medical Deferral: Activity limitations Activity Limitations: Strict bedrest Problem: Pain Goal: Patient goal is pain score less than 4, able to rest, and participant in treatment plan as appropriate Description: INTERVENTIONS: 1. Encourage patient or legal outbound telemarketing representative to report early pain and ask for pain medicine when needed 2. Assess pain using appropriate pain scale and include the scale used when documenting 3. Administer analgesics based on type and severity of pain and evaluate response within appropriate time frame 4. Implement non-pharmacological measures as appropriate and evaluate response 5. Consider cultural and social influences on pain and pain management 6. Notify LIP if interventions ineffective or patient reports new pain 7. Monitor vital signs including pulse ox, end-tidal CO2 based on pain intervention 8. Reassess pain per policy 9. Teach patient or legal outbound telemarketing representative interventions for comforting Outcome: Progressing Note: Evaluation of progress towards goal: Patient goal is __0___ score for pain. Patient assessed for pain with hourly rounding. Pain managed with PRN pain medications as per orders, and additionally with non-medication interventions such as repositioning and relaxation. Patient reports satisfaction with current pain management regimen Problem: Safety Goal: Patient will be injury free during hospitalization Description: INTERVENTIONS: 1. Assess patient's risk for falls and implement fall prevention plan of care per policy 2. Provide and maintain a safe environment 3. Proper use of double Identifiers 4. Medication administration using the 5 rights 5. Hand hygiene 6. Specimens are labeled at the bedside 7. Instruct patient/ patient outbound telemarketing representative about use of safety devices 8. Include patient/ patient outbound telemarketing representative in decisions related to safety Outcome: Progressing Note: Evaluation of progress towards goal: Patient assessed for appropriate safe patient handling equipment, and equipment used as per policy. Patient's environment is safely maintained. Medications passed as per policy. Five rights used for all interventions. No falls or injury during this stay. Problem: Urinary Incontinence Goal: Perineal skin integrity is maintained or improved Description: INTERVENTIONS 1. Assess genitourinary system, perineal skin, labs (urinalysis), and history of incontinence to include past management, aggravating, and alleviating factors 2. Keep skin clean and dry 3. Apply skin protectant 4. Develop skin care regimen 5. Provide privacy when changing patients incontinence device to maintain their dignity 6. Consider placing an indwelling catheter 7. Collaborate with interdisciplinary team and initiate plans and interventions as needed Outcome: Progressing Note: Evaluation of progress towards goal: Pt per jorgensen catheter. Jorgensen care every shift provided with CHG impregnated wipes Occupational Therapy OT Type of Visit: Medical deferral Reason For Medical Deferral: Activity limitations RN [place] Inappropriate: Failed MOVES safety screen Activity Limitations: Strict bedrest Physical Therapy PT Type of Visit: Medical deferral Reason For Medical Deferral: Activity limitations RN [place] Inappropriate: Failed MOVES safety screen Activity Limitations: Strict bedrest (attempted to see pt for PT initial eval, hold PT a this time d/t failed safety screen with strict bedrest orders; attempt PT as appropriate) Problem: Pain Goal: Patient goal is pain score less than 4, able to rest, and participant in treatment plan as appropriate Description: INTERVENTIONS: 1. Encourage patient or legal outbound telemarketing representative to report early pain and ask for pain medicine when needed 2. Assess pain using appropriate pain scale and include the scale used when documenting 3. Administer analgesics based on type and severity of pain and evaluate response within appropriate time frame 4. Implement non-pharmacological measures as appropriate and evaluate response 5. Consider cultural and social influences on pain and pain management 6. Notify LIP if interventions ineffective or patient reports new pain 7. Monitor vital signs including pulse ox, end-tidal CO2 based on pain intervention 8. Reassess pain per policy 9. Teach patient or legal outbound telemarketing representative interventions for comforting Outcome: Progressing Note: Evaluation of progress towards goal: Patient goal is __0___ score for pain. Patient assessed for pain with hourly rounding. Pain managed with PRN pain medications as per orders, and additionally with non-medication interventions such as repositioning and relaxation. Patient reports satisfaction with current pain management regimen Problem: Safety Goal: Patient will be injury free during hospitalization Description: INTERVENTIONS: 1. Assess patient's risk for falls and implement fall prevention plan of care per policy 2. Provide and maintain a safe environment 3. Proper use of double Identifiers 4. Medication administration using the 5 rights 5. Hand hygiene 6. Specimens are labeled at the bedside 7. Instruct patient/ patient outbound telemarketing representative about use of safety devices 8. Include patient/ patient outbound telemarketing representative in decisions related to safety Outcome: Progressing Note: Evaluation of progress towards goal: Patient assessed for appropriate safe patient handling equipment, and equipment used as per policy. Patient's environment is safely maintained. Medications passed as per policy. Five rights used for all interventions. No falls or injury during this stay. Problem: Urinary Incontinence Goal: Perineal skin integrity is maintained or improved Description: INTERVENTIONS 1. Assess genitourinary system, perineal skin, labs (urinalysis), and history of incontinence to include past management, aggravating, and alleviating factors 2. Keep skin clean and dry 3. Apply skin protectant 4. Develop skin care regimen 5. Provide privacy when changing patients incontinence device to maintain their dignity 6. Consider placing an indwelling catheter 7. Collaborate with interdisciplinary team and initiate plans and interventions as needed Outcome: Progressing Note: Evaluation of progress towards goal: Pt per jorgensen catheter. Jorgensen care every shift provided with CHG impregnated wipes Query Response Note AUTOMATED QUERY TEXT: Stage of Chronic Kidney Disease: This query seeks further clarification of documentation to reflect all conditions that you are monitoring, evaluating, treating or that extend hospitalization or utilize additional resources. Please utilize your independent clinical judgment when addressing the question(s) below. Please provide further specificity, if known. Clinical indicators include: bun, creatinine, ckd, acute on chronic kidney disease, bnp Options provided: -- Chronic kidney disease stage 1 -- Chronic kidney disease stage 2 -- Chronic kidney disease stage 3 -- Chronic kidney disease stage 3a -- Chronic kidney disease stage 3b -- Chronic kidney disease stage 4 -- Chronic kidney disease stage 5 -- Chronic kidney disease stage 5, requiring dialysis -- End stage renal disease -- Other - I will add my own diagnosis -- Dismiss - Not applicable / Not valid AUTOMATED QUERY RESPONSE TEXT: The patient has chronic kidney disease stage 3a. Electronically signed by: Shar Schaffer MD 06/29/2024 12:43 PM Occupational Therapy OT Type of Visit: Medical deferral Reason For Medical Deferral: Activity limitations RN Deems Inappropriate: Failed MOVES safety screen Activity Limitations: Strict bedrest Physical Therapy PT Type of Visit: Medical deferral Reason For Medical Deferral: RN deems inappropriate, Activity limitations RN Deems Inappropriate: Failed MOVES safety screen Activity Limitations: Strict bedrest documented in this encounter [facility] 07-04-2024 History of Present illness Narrative [facility] Department of Pharmacy Pharmacy-Physician Communication Pt name: Neptali Loyola Room: A221/[address] Ru Schwarz MD, Neptali Loyola is a 78 y.o. male who qualifies for therapy route conversion. Inclusion criteria have been evaluated including: improved clinical status, ability to tolerate oral medications, tolerating food or enteral feeding, and functioning GI tract. Given current status, patient has been determined to be eligible for conversion. Will change existing order for famotidine 20 mg IV every 24 hours to famotidine oral at the same dose and frequency per P&T/[facility] approved policy. Thank you. If we can offer more assistance, please feel free to call us at [phone]. Ismael Flores RPH Images from the original note were not included. Sonido Trinidad Jr., M.D., Caden Friedman M.D., Mookie Frey M.D., Debra Kerr M.D., Susana Almeida M.D, Alfred Valenzuela M.D., Tom Pratt M.D., Fredis Villarreal M.D., Javier Montes M.D. Urology Progress Note Patient: Neptali Loyola Date of : 1945 INTERVAL HISTORY: Transferred out of ICU Vitals stable Doing well Urine clear, light pink Hb stable. Results from last 7 days Lab Units 07/02/24 1812 07/02/24 0601 07/01/24 1649 07/01/24 0828 07/01/24 0215 WBC X10E9/L -- 7.3 -- -- 9.5 HEMOGLOBIN g/dL 11.4* 10.7* 10.6* -- 10.2* SODIUM mmol/L -- 142 -- -- 141 POTASSIUM mmol/L -- 4.1 4.2 < > 3.7 CREATININE mg/dL -- 1.15 -- -- 1.24 BUN mg/dL -- 13 -- -- 16 < > = values in this interval not displayed. Microbiology Results Procedure Component Value Units Date/Time Urine culture [[id number]] Collected: 06/29/24 0206 Specimen: Urine from Jorgensen Catheter Specimen Updated: 06/30/24 0722 Specimen Notes URINE RECEIVED WITHOUT PRESERVATIVE Culture NO GROWTH AT <1000 CFU/mL Urine culture [[id number]] Collected: 06/28/24 210 Specimen: Urine from Jorgensen Catheter Specimen Updated: 06/30/24 0908 Culture NO GROWTH AT <1000 CFU/mL Blood culture, peripheral #1 [[id number]] Collected: 06/28/24 191 Specimen: Blood Updated: 07/02/242229 Specimen Notes PENDING Culture NO GROWTH 4 DAYS Blood culture, peripheral #2 [[id number]] Collected: 06/28/24 190 Specimen: Blood Updated: 07/02/242230 Specimen Notes PENDING Culture NO GROWTH 4 DAYS SARS/FLU A+B/RSV by NAAT/Molecular (M4RT Collection Tube) [[id number]] Collected: 06/28/241809 Specimen: Nasopharynx Updated: 06/28/241946 FLU A PCR Negative FLU B PCR Negative RSV by PCR Negative SARS CoV 2 BY PCR Not Detected Physical Exam: This a 78 y.o. patient Patient Vitals for the past 24 hrs: BP Temp Temp src Pulse Resp SpO2 Weight 07/03/24 0436 -- -- -- -- -- -- 98.5 kg (217 lb 2.5 oz) 07/03/24421 122/71 36.7 C (98.1 F) Oral 63 23 99 % -- 07/02/242321 108/62 36.5 C (97.7 F) Oral 60 (!) 26 99 % -- 07/02/241919 135/61 36.8 C (98.3 F) Oral 63 (!) 32 100 % -- 07/02/24 1705 125/67 36.8 C (98.2 F) Oral 60 20 100 % -- 07/02/24 1200 101/58 36.8 C (98.3 F) Oral 67 23 99 % -- 07/02/24 0830 -- -- -- 60 -- 98 % -- 07/02/24 0815 138/77 -- -- 63 23 -- -- Constitutional: Patient in no acute distress Neuro: alert and oriented to person place and time. Skin: Normal, skin dry and warm, no visible rashes or lesions Respiratory: Nonlabored breathing on room air Cardiovascular: Regular rate and rhythm Abdomen: Soft, non-tender, non-distended, no signs of peritonitis Lines/drains: 16 [place] J[address] catheter in place with light brown urine LABS: Results from last 7 days Lab Units 07/02/24 1812 07/02/24 0601 07/01/24 1649 07/01/24 0215 06/30/24 0905 06/30/24 0210 WBC X10E9/L -- 7.3 -- 9.5 -- 10.1 HEMOGLOBIN g/dL 11.4* 10.7* 10.6* 10.2* < > 10.4* HEMATOCRIT % 34.3* 31.2* 31.8* 29.9* < > 30.3* PLATELETS X10E9/L -- 228 -- 235 -- 197 < > = values in this interval not displayed. Results from last 7 days Lab Units 07/03/24 0611 07/02/24 1233 07/02/24 0601 07/01/24 1743 07/01/24 1649 07/01/24 1137 07/01/24 0828 07/01/24 0607 07/01/24 0215 06/30/24 0400 06/30/24 0210 POTASSIUM mmol/L -- -- 4.1 -- 4.2 -- 3.8 -- 3.7 -- 4.2 CHLORIDE mmol/L -- -- 108 -- -- -- -- -- 111* -- 112* CO2 mmol/L -- -- 26 -- -- -- -- -- 25 -- 22 BUN mg/dL -- -- 13 -- -- -- -- -- 16 -- 20 CREATININE mg/dL -- -- 1.15 -- -- -- -- -- 1.24 -- 1.39* BEDSIDE GLUCOSE mg/dL 116* < > -- < > -- < > -- < > -- < > -- GLUCOSE mg/dL -- -- 93 -- -- -- -- -- 103* -- 69 CALCIUM mg/dL -- -- 8.2* -- -- -- -- -- 7.9* -- 7.4* < > = values in this interval not displayed. No results found for: PSA Urinalysis: Lab Results Component Value Date COLOR ALISSA (A) 06/29/2024 TURBIDITY CLEAR 06/29/2024 SPECIFICGRA 1.015 06/29/2024 NITRITE Negative 06/29/2024 PHURINE 5.5 06/29/2024 LEUKOCYTE Negative 06/29/2024 PROTEIN 50 (A) 06/29/2024 KETONES Negative 06/29/2024 UROBILINOGEN <1.1 06/29/2024 BLOODHGB Large (A) 06/29/2024 Assessment and Plan Assessment: Left renal hematoma: Has received 3 units of blood. Hemoglobin stable at this time Hematuria: Still present, but improving. Urine is violeta red and see through. No clots present. Catheter draining well Hydronephrosis with stent in place: Creatinine downtrending at this time Renal calculi Plan: No acute urological interventions planned at this time as patient is hemodynamically stable. Hemoglobin is stable If patient becomes unstable, would recommend obtaining a CTA of the abdomen/pelvis to determine if any active extravasation. If positive, will need Interventional Radiology consultation for embolization Creatinine has downtrended at this time. No need for exchange of ureteral stent or nephrostomy tube. Maintain current Jorgensen catheter in place. Will need a void trial prior to discharge Can take off of bedrest as hemoglobin has been stable Can trend Hgb daily Can resume Eliquis today as hemoglobin has been stable. Would continue holding Plavix until hemoglobin continues to be stable with Eliquis If Hb stable can resume plavix while monitoring hb No acute urologic intervention indicated at this time Timing of catheter void trial per primary team Dale Fierro MD PGY1 Urology Cosigned by Alfred Valenzuela MD at 07/03/2024 10:40 PM EST Associated attestation - Alfred Valenzuela MD - 07/03/2024 10:40 PM EST Attending Attestation: I saw the patient. I performed the critical/archer portions of the service. I was directly involved in the management and treatment plan of the patient. I reviewed the resident's note. Additional Notes/Findings: Will resume plavix in addition to Eliquis. Monitor hgb. Monitor hematuria. TRAUMA SURGERY - PROGRESS NOTE Patient: Neptali Loyola Date of : 1945 AGE 78 y.o. SEX male Assessment / Plan Neptali Loyola 78 y.o. male Mechanism: Fall Injuries/Traumatic issues: Left Renal Hematoma - recent lithotripsy and stent placement at [facility] -Consult to Urology - serial hgb, trend Cr -Continue bedrest; 07/02 ok to get OOB - 07/02 ok per urology to resume Eliquis - ok to resume plavix if hgb stable on eliquis, plavix resumed today with repeat H/H at 1700 - continue jorgensen per urology with void trial prior to DC -If pt becomes unstable, Urology recommends IR for embolization Hypotension Acute blood loss anemia -SICU admission -06/29 3 units PRBC -serial hgb with close hemodynamic monitoring - transfuse for hgb < 7 or hemodynamic instability - 07/02 hgb has been stable, ok to resume Eliquis, continue to monitor closely - plavix resumed 07/03 Comorbidities/Medical issues: Neuro- Pulm- Cardio- CAD, SC, HTN, Afib on Eliquis GI- -CKD, nephrolithiasis Heme- ID- MSK- Endo- Lytes- Lines and Tubes: PIV, jorgensen Pain control: tylenol Nutrition: regular Prophylaxis: SCDs, Eliquis Disposition: - PT/OT recommendation: SNF - PM&R recommendation: n/a - Discharge plan: SNF - Barriers to discharge: hgb - Level of care to be continued: intermediate Medical Decision Making: High Subjective Patient resting comfortably in bed. Pain is well controlled. Tolerating diet well. Sleeping well. No BM, + flatus, will increase bowel regimen. No acute overnight events. No other questions or concerns. Objective Vital signs: Vitals: 07/02/24 1920 07/02/24 2322 07/03/24 0422 07/03/24 0436 BP: 135/61 108/62 122/71 Pulse: 63 60 63 Resp: (!) 32 (!) 26 23 Temp: 36.8 C (98.3 F) 36.5 C (97.7 F) 36.7 C (98.1 F) TempSrc: Oral Oral Oral SpO2: 100% 99% 99% Weight: 98.5 kg (217 lb 2.5 oz) Height: Temperature Range Last 24 Hours : Temp: 36.7 C (98.1 F) Temp Av.7 C (98.1 F) Min: 36.5 C (97.7 F) Max: 36.8 C (98.3 F) Admit Weight: 93 kg (205 lb) Body mass index is 29.45 kg/m . Last Weights: Wt Readings from Last 3 Encounters: 07/03/24 98.5 kg (217 lb 2.5 oz) 06/28/24 93 kg (205 lb) I/O's: Intake/Output Summary (Last 24 hours) at 07/03/2024 0709 Last data filed at 07/03/2024 0435 Gross per 24 hour Intake -- Output 2100 ml Net -2100 ml Physical Exam Physical Exam Constitutional He is oriented to person, place, and time. Nursing note and vitals reviewed. Cardiovascular: Normal rate and regular rhythm. Pulses: intact distal pulses Heart Sounds: normal heart sounds. Pulmonary/Chest: Effort normal and breath sounds normal. Abdominal: He exhibits no distension. Soft. There is no abdominal tenderness. There is no guarding. Musculoskeletal: General: Normal range of motion. Neurological: He is alert and oriented to person, place, and time. He has normal strength. Motor: normal strength Nursing note and vitals reviewed. Genitourinary Genitourinary Comments: Jorgensen with hematuria Labs Results from last 7 days Lab Units 07/02/24 1812 07/02/24 0601 07/01/24 1649 07/01/24 0215 06/30/24 1242 06/30/24 0905 06/30/24 0210 06/29/24 0845 06/29/24 0440 06/29/24 0137 WBC X10E9/L -- 7.3 -- 9.5 -- -- 10.1 -- 11.7* 10.6 HEMOGLOBIN g/dL 11.4* 10.7* 10.6* 10.2* 10.1* < > 10.4* < > 8.1* 6.9* HEMATOCRIT % 34.3* 31.2* 31.8* 29.9* 29.7* < > 30.3* < > 23.6* 20.6* PLATELETS X10E9/L -- 228 -- 235 -- -- 197 -- 193 186 < > = values in this interval not displayed. Results from last 7 days Lab Units 07/03/24 0611 07/03/24 0514 07/02/24 2321 07/02/24 1757 07/02/24 1233 07/02/24 0601 07/01/24 1743 07/01/24 1649 07/01/24 1137 07/01/24 0828 07/01/24 0607 07/01/24 0215 06/30/24 0400 06/30/24 0210 06/29/24 0601 06/29/24 0440 06/29/24 0137 SODIUM mmol/L -- -- -- -- -- 142 -- -- -- -- -- 141 -- 142 -- 139 140 POTASSIUM mmol/L -- -- -- -- -- 4.1 -- 4.2 -- 3.8 -- 3.7 -- 4.2 -- 3.7 3.6 CO2 mmol/L -- -- -- -- -- 26 -- -- -- -- -- 25 -- -- 23 21* BUN mg/dL -- -- -- -- -- 13 -- -- -- -- -- 16 -- 20 -- 17 16 CREATININE mg/dL -- -- -- -- -- 1.15 -- -- -- -- -- 1.24 -- 1.39* -- 1.57* 1.46* BEDSIDE GLUCOSE mg/dL 116* 125* 103* 144* 158* -- < > -- < > -- < > -- < > -- < > -- -- GLUCOSE mg/dL -- -- -- -- -- 93 -- -- -- -- -- 103* -- 69 -- 111* 105* < > = values in this interval not displayed. Results from last 7 days Lab Units 06/29/24 0137 06/28/24 2313 06/28/24 1901 INR 1.6* 1.7* 3.1* PROTIME sec 18.1* 18.9* 34.3* APTT sec 33 -- 40* Labs obtained during the last 24 hrs. independently reviewed. Recent Studies Vas venous duplex lwr bilateral Result Date: 07/02/2024 Right: Lower extremity deep veins are compressible with spontaneous phasic spectral Doppler waveforms; superficial veins are compressible without intraluminal content. Left: Lower extremity deep veins are compressible with spontaneous phasic spectral Doppler waveforms; superficial veins are compressible without intraluminal content. Recommendations: Any questions prior to finalization, please call the reading physician during normal business hours at the phone number beside their name. Radiographic studies obtained during the last 24 hrs independently reviewed for acute traumatic injuries. Allergies No Known Allergies Current Medications SCHEDULED amiodarone, 200 mg, oral, BID apixaban, 5 mg, oral, BID atorvastatin, 80 mg, oral, Nightly carvediloL, 3.125 mg, oral, BID famotidine, 20 mg, intravenous, Q24H TYRON insulin lispro, 2-10 Units, subcutaneous, Q6H lidocaine, 1 patch, transdermal, Daily memantine, 10 mg, oral, BID polyethylene glycol, 17 g, oral, Daily sennosides-docusate sodium, 2 tablet, oral, BID sodium chloride, 3 mL, intravenous, Q12H TYRON spironolactone, 12.5 mg, oral, Nightly PRN acetaminophen calcium gluconate OR calcium gluconate OR calcium gluconate dextrose dextrose 50 % in water (D50W) flu vacc [id number] 6mos up(PF) glucagon (human recombinant) ipratropium-albuteroL magnesium sulfate OR magnesium sulfate ondansetron pneumococcal conj. 20-valent potassium chloride OR potassium chloride potassium chloride in water OR potassium chloride in water sodium phosphate IV OR sodium phosphate IV - central line OR sod phos di, mono-K phos mono sodium chloride sodium chloride 0.9 % Current Infusions sodium chloride 0.9 %, 20 mL/hr Soraida Mcgovern PA-C Trauma Services Pager: [phone] 11:16 AM 07/03/24 Soraida Mcgovern PA-C 07/03/24 1116 Images from the original note were not included. FOLLOW-UP: Post-Intensive Care Rounding Note Patient: Neptali Loyola : 1945 Age: 78 y.o. Length of Stay: 3 days Admission Diagnosis: Acute blood loss anemia [D62] Fall in home, initial encounter [W19.XXXA, Y92.009] Reviewing patient due to his recent transfer out from Intensive Care. Recorded vital signs are stable and the patient is not noted to be in any apparent distress. Telemetry and monitoring noted. Staff may call with any issues or concerns regarding his clinical presentation or stability. Thank you, Bernarda Dennis RN Rapid Response: [facility] TRAUMA SURGERY - PROGRESS NOTE Patient: Neptali Loyola Date of : 1945 AGE 78 y.o. SEX male Assessment / Plan Neptali Loyola 78 y.o. male Mechanism: Fall Injuries/Traumatic issues: Left Renal Hematoma - recent lithotripsy and stent placement at [facility] -Consult to Urology - serial hgb, trend Cr -Continue bedrest; 07/02 ok to get OOB - 07/02 ok per urology to resume Eliquis; continue to hold Plavix - continue jorgensen with void trial prior to DC -If pt becomes unstable, Urology recommends IR for embolization Hypotension Acute blood loss anemia -SICU admission -06/29 3 units PRBC -serial hgb with close hemodynamic monitoring - transfuse for hgb < 7 or hemodynamic instability - 07/02 hgb has been stable, ok to resume Eliquis, continue to monitor closely Comorbidities/Medical issues: Neuro- Pulm- Cardio- CAD, SC, HTN, Afib on Eliquis GI- -CKD, nephrolithiasis Heme- ID- MSK- Endo- Lytes- Lines and Tubes: PIV, jorgensen Pain control: tylenol Nutrition: regular Prophylaxis: SCDs, start Eliquis Disposition: - PT/OT recommendation: pending - PM&R recommendation: n/a - Discharge plan: pending - Barriers to discharge: PT/OT eval, Eliquis, hgb - Level of care to be continued: intermediate Medical Decision Making: High Subjective No acute events overnight. Denies N/V/abdominal pain. Objective Vital signs: Vitals: 07/01/24 1739 07/01/24 1907 07/01/24 2319 07/02/24 0417 BP: 132/76 125/67 131/76 143/71 Pulse: 63 70 67 60 Resp: 18 (!) 30 (!) 26 (!) 29 Temp: 36.8 C (98.2 F) 37.1 C (98.7 F) 36.9 C (98.4 F) 37.1 C (98.8 F) TempSrc: Oral Oral Oral Oral SpO2: 93% 95% 91% 95% Weight: 98.7 kg (217 lb 9.5 oz) Height: Temperature Range Last 24 Hours : Temp: 37.1 C (98.8 F) Temp Av.9 C (98.5 F) Min: 36.8 C (98.2 F) Max: 37.1 C (98.8 F) Admit Weight: 93 kg (205 lb) Body mass index is 29.51 kg/m . Last Weights: Wt Readings from Last 3 Encounters: 07/02/24 98.7 kg (217 lb 9.5 oz) 06/28/24 93 kg (205 lb) I/O's: Intake/Output Summary (Last 24 hours) at 07/02/2024 1002 Last data filed at 07/02/2024 0800 Gross per 24 hour Intake 1879.08 ml Output 2970 ml Net -1090.92 ml Physical Exam Physical Exam Constitutional He is oriented to person, place, and time. Nursing note and vitals reviewed. Cardiovascular: Normal rate and regular rhythm. Pulses: intact distal pulses Heart Sounds: normal heart sounds. Pulmonary/Chest: Effort normal and breath sounds normal. Abdominal: He exhibits no distension. Soft. There is no abdominal tenderness. There is no guarding. Musculoskeletal: General: Normal range of motion. Neurological: He is alert and oriented to person, place, and time. He has normal strength. Motor: normal strength Nursing note and vitals reviewed. Genitourinary Genitourinary Comments: Jorgensen with hematuria Labs Results from last 7 days Lab Units 07/02/24 0601 07/01/24 1649 07/01/24 0215 06/30/24 1242 06/30/24 0905 06/30/24 0210 06/29/24 0845 06/29/24 0440 06/29/24 0137 WBC X10E9/L 7.3 -- 9.5 -- -- 10.1 -- 11.7* 10.6 HEMOGLOBIN g/dL 10.7* 10.6* 10.2* 10.1* 10.0* 10.4* < > 8.1* 6.9* HEMATOCRIT % 31.2* 31.8* 29.9* 29.7* 29.1* 30.3* < > 23.6* 20.6* PLATELETS X10E9/L 228 -- 235 -- -- 197 -- 193 186 < > = values in this interval not displayed. Results from last 7 days Lab Units 07/02/24 0601 07/02/24 0537 07/02/24 0521 07/01/24 2315 07/01/24 2101 07/01/24 1743 07/01/24 1649 07/01/24 1137 07/01/24 0828 07/01/24 0607 07/01/24 0215 06/30/24 0400 06/30/24 0210 06/29/24 0601 06/29/24 0440 06/29/24 0137 SODIUM mmol/L 142 -- -- -- -- -- -- -- -- -- 141 -- 142 -- 139 140 POTASSIUM mmol/L 4.1 -- -- -- -- -- 4.2 -- 3.8 -- 3.7 -- 4.2 -- 3.7 3.6 CO2 mmol/L 26 -- -- -- -- -- -- -- -- -- 25 -- 22 -- 23 21* BUN mg/dL 13 -- -- -- -- -- -- -- -- -- 16 -- 20 -- 17 16 CREATININE mg/dL 1.15 -- -- -- -- -- -- -- -- -- 1.24 -- 1.39* -- 1.57* 1.46* BEDSIDE GLUCOSE mg/dL -- 87 90 106* 133* < > -- < > -- < > -- < > -- < > -- -- GLUCOSE mg/dL 93 -- -- -- -- -- -- -- -- -- 103* -- 69 -- 111* 105* < > = values in this interval not displayed. Results from last 7 days Lab Units 06/29/24 0137 06/28/24 2313 06/28/24 1901 INR 1.6* 1.7* 3.1* PROTIME sec 18.1* 18.9* 34.3* APTT sec 33 -- 40* Labs obtained during the last 24 hrs. independently reviewed. Recent Studies No results found. Radiographic studies obtained during the last 24 hrs independently reviewed for acute traumatic injuries. Allergies No Known Allergies Current Medications SCHEDULED amiodarone, 200 mg, oral, BID atorvastatin, 80 mg, oral, Nightly famotidine, 20 mg, intravenous, Q24H [facility] insulin lispro, 2-10 Units, subcutaneous, Q6H lidocaine, 1 patch, transdermal, Daily memantine, 10 mg, oral, BID polyethylene glycol, 17 g, oral, Daily sennosides-docusate sodium, 2 tablet, oral, BID sodium chloride, 3 mL, intravenous, Q12H TYRON PRN calcium gluconate OR calcium gluconate OR calcium gluconate dextrose dextrose 50 % in water (D50W) fentaNYL flu vacc [id number] 6mos up(PF) glucagon (human recombinant) ipratropium-albuteroL magnesium sulfate OR magnesium sulfate ondansetron pneumococcal conj. 20-valent potassium chloride OR potassium chloride potassium chloride in water OR potassium chloride in water sodium phosphate IV OR sodium phosphate IV - central line OR sod phos di, mono-K phos mono sodium chloride sodium chloride 0.9 % Current Infusions sodium chloride 0.9 %, 20 mL/hr MARIA A Klein Trauma can be reached via Patient Touch Pager: [phone] MARIA A Klein 07/02/24 1013 Images from the original note were not included. FOLLOW-UP: Post-Intensive Care Rounding Note Patient: Neptali Loyola : 1945 Age: 78 y.o. Length of Stay: 3 days Admission Diagnosis: Acute blood loss anemia [D62] Fall in home, initial encounter [W19.XXXA, Y92.009] Reviewing patient due to his recent transfer out from Intensive Care. Recorded vital signs are stable and the patient is not noted to be in any apparent distress. Telemetry and monitoring noted. Staff may call with any issues or concerns regarding his clinical presentation or stability. Thank you, AYSE RAYO RN Rapid Response: [facility] Images from the original note were not included. Sonido Trinidad Jr., M.D., Caden Friedman M.D., Mookie Frey M.D., Debra Kerr M.D., Susana Almeida M.D, Alfred Valenzuela M.D., Tom Pratt M.D., Fredis Villarreal M.D., Javier Montes M.D. Urology Progress Note Patient: Neptali Loyola Date of : 1945 INTERVAL HISTORY: Transferred out of ICU Vitals stable Hgb 10.7 (10.6) Results from last 7 days Lab Units 02/18/25 0601 07/01/24 1649 07/01/24 0828 07/01/24 0215 06/30/24 0905 06/30/24 0210 WBC X10E9/L 7.3 -- -- 9.5 -- 10.1 HEMOGLOBIN g/dL 10.7* 10.6* -- 10.2* < > 10.4* SODIUM mmol/L -- -- -- 141 -- 142 POTASSIUM mmol/L -- 4.2 3.8 3.7 -- 4.2 CREATININE mg/dL -- -- -- 1.24 -- 1.39* BUN mg/dL -- -- -- 16 -- 20 < > = values in this interval not displayed. Microbiology Results Procedure Component Value Units Date/Time Urine culture [[id number]] Collected: 06/29/24 0206 Specimen: Urine from Jorgensen Catheter Specimen Updated: 06/30/24 0722 Specimen Notes URINE RECEIVED WITHOUT PRESERVATIVE Culture NO GROWTH AT <1000 CFU/mL Urine culture [[id number]] Collected: 06/28/24 210 Specimen: Urine from Jorgensen Catheter Specimen Updated: 06/30/24 0908 Culture NO GROWTH AT <1000 CFU/mL Blood culture, peripheral #1 [[id number]] Collected: 06/28/24 191 Specimen: Blood Updated: 07/01/242229 Specimen Notes PENDING Culture NO GROWTH 3 DAYS Blood culture, peripheral #2 [[id number]] Collected: 06/28/24 190 Specimen: Blood Updated: 07/01/242230 Specimen Notes PENDING Culture NO GROWTH 3 DAYS SARS/FLU A+B/RSV by NAAT/Molecular (M4RT Collection Tube) [[id number]] Collected: 06/28/24 181 Specimen: Nasopharynx Updated: 06/28/241946 FLU A PCR Negative FLU B PCR Negative RSV by PCR Negative SARS CoV 2 BY PCR Not Detected Physical Exam: This a 78 y.o. patient Patient Vitals for the past 24 hrs: BP Temp Temp src Pulse Resp SpO2 Weight 07/02/24 0417 143/71 37.1 C (98.8 F) Oral 60 (!) 29 95 % 98.7 kg (217 lb 9.5 oz) 07/01/24 2319 131/76 36.9 C (98.4 F) Oral 67 (!) 26 91 % -- 07/01/24 1907 125/67 37.1 C (98.7 F) Oral 70 (!) 30 95 % -- 07/01/24 1739 132/76 36.8 C (98.2 F) Oral 63 18 93 % -- 07/01/24 1500 -- -- -- 64 24 96 % -- 07/01/24 1400 127/70 -- -- 63 (!) 33 96 % -- 07/01/24 1300 -- -- -- 63 (!) 28 95 % -- 07/01/24 1225 -- -- -- 64 19 95 % -- 07/01/24 1200 -- -- -- 65 (!) 33 95 % -- 07/01/24 1100 -- 37 C (98.6 F) -- 64 (!) 31 96 % -- 07/01/24 1016 -- -- -- 67 19 97 % -- 07/01/24 1000 -- -- -- 63 20 96 % -- 07/01/24 0910 -- -- -- 60 25 97 % -- 07/01/24 0903 -- -- -- 61 24 96 % -- 07/01/24 0900 -- -- -- 64 (!) 28 97 % -- 07/01/24 0809 -- -- -- 60 25 96 % -- 07/01/24 0800 -- -- -- 66 (!) 31 96 % -- 07/01/24 0700 -- 36.9 C (98.5 F) Oral 60 23 97 % -- Constitutional: Patient in no acute distress Neuro: alert and oriented to person place and time. Skin: Normal, skin dry and warm, no visible rashes or lesions Respiratory: Nonlabored breathing on room air Cardiovascular: Regular rate and rhythm Abdomen: Soft, non-tender, non-distended, no signs of peritonitis Lines/drains: 16 Bangladeshi Jorgensen catheter in place with light brown urine LABS: Results from last 7 days Lab Units 07/02/24 0601 07/01/24 1649 07/01/24 0215 06/30/24 0905 06/30/24 0210 WBC X10E9/L 7.3 -- 9.5 -- 10.1 HEMOGLOBIN g/dL 10.7* 10.6* 10.2* < > 10.4* HEMATOCRIT % 31.2* 31.8* 29.9* < > 30.3* PLATELETS X10E9/L 228 -- 235 -- 197 < > = values in this interval not displayed. Results from last 7 days Lab Units 07/02/24 0537 07/01/24 1743 07/01/24 1649 07/01/24 1137 07/01/24 0828 07/01/24 0607 07/01/24 0215 06/30/24 0400 06/30/24 0210 06/29/24 0601 06/29/24 0440 POTASSIUM mmol/L -- -- 4.2 -- 3.8 -- 3.7 -- 4.2 -- 3.7 CHLORIDE mmol/L -- -- -- -- -- -- 111* -- 112* -- 108 CO2 mmol/L -- -- -- -- -- -- 25 -- 22 -- 23 BUN mg/dL -- -- -- -- -- -- 16 -- 20 -- 17 CREATININE mg/dL -- -- -- -- -- -- 1.24 -- 1.39* -- 1.57* BEDSIDE GLUCOSE mg/dL 87 < > -- < > -- < > -- < > -- < > -- GLUCOSE mg/dL -- -- -- -- -- -- 103* -- 69 -- 111* CALCIUM mg/dL -- -- -- -- -- -- 7.9* -- 7.4* -- 7.6* < > = values in this interval not displayed. No results found for: PSA Urinalysis: Lab Results Component Value Date COLOR ALISSA (A) 06/29/2024 TURBIDITY CLEAR 06/29/2024 SPECIFICGRA 1.015 06/29/2024 NITRITE Negative 06/29/2024 PHURINE 5.5 06/29/2024 LEUKOCYTE Negative 06/29/2024 PROTEIN 50 (A) 06/29/2024 KETONES Negative 06/29/2024 UROBILINOGEN <1.1 06/29/2024 BLOODHGB Large (A) 06/29/2024 Assessment and Plan Assessment: Left renal hematoma: Has received 3 units of blood. Hemoglobin stable at this time Hematuria: Still present, but improving. Urine is violeta red and see through. No clots present. Catheter draining well Hydronephrosis with stent in place: Creatinine downtrending at this time Renal calculi Plan: No acute urological interventions planned at this time as patient is hemodynamically stable. Hemoglobin is stable If patient becomes unstable, would recommend obtaining a CTA of the abdomen/pelvis to determine if any active extravasation. If positive, will need Interventional Radiology consultation for embolization Creatinine has downtrended at this time. No need for exchange of ureteral stent or nephrostomy tube. Maintain current Jorgensen catheter in place. Will need a void trial prior to discharge Can take off of bedrest as hemoglobin has been stable Can trend Hgb daily Can resume Eliquis today as hemoglobin has been stable. Would continue holding Plavix until hemoglobin continues to be stable with Eliquis Urology will continue to follow closely Qasim Hernandez MD Urology Resident, PGY-3 Cosigned by Alfred Valenzuela MD at 07/02/2024 10:27 PM EST Associated attestation - Alfred Valenzuela MD - 07/02/2024 10:27 PM EST Attending Attestation: I saw the patient. I performed the critical/archer portions of the service. I was directly involved in the management and treatment plan of the patient. I reviewed the resident's note. Additional Notes/Findings: Plan to resume anticoagulation given stability of hgb. Monitor hematuria and hgb after resuming AC. Images from the original note were not included. FOLLOW-UP: Post-Intensive Care Rounding Note Patient: Neptali Loyola : 1945 Age: 78 y.o. Length of Stay: 2 days Admission Diagnosis: Acute blood loss anemia [D62] Fall in home, initial encounter [W19.XXXA, Y92.009] Reviewing patient due to his recent transfer out from Intensive Care. Recorded vital signs are stable and the patient is not noted to be in any apparent distress. Telemetry and monitoring noted. Staff may call with any issues or concerns regarding his clinical presentation or stability. Thank you, Bernarda Dennis RN Rapid Response: [facility] Images from the original note were not included. Sonido Trinidad Jr., M.D., Caden Friedman M.D., Mookie Frey M.D., Debra Kerr M.D., Susana Almeida M.D, Alfred Valenzuela M.D., Tom Pratt M.D., Fredis Villarreal M.D., Javier Montes M.D. Urology Progress Note Patient: Neptali Loyola Date of : 1945 INTERVAL HISTORY: Received a total of 3 units of blood on admission No acute events overnight Vital signs remained stable, blood pressure within normal limits Jorgensen in place with pink tinged urine. Improved compared to yesterday. No issues with drainage Results from last 7 days Lab Units 07/01/24 0215 06/30/24 1242 06/30/24 0905 06/30/24 0210 WBC X10E9/L 9.5 -- -- 10.1 HEMOGLOBIN g/dL 10.2* 10.1* < > 10.4* SODIUM mmol/L 141 -- -- 142 POTASSIUM mmol/L 3.7 -- -- 4.2 CREATININE mg/dL 1.24 -- -- 1.39* BUN mg/dL 16 -- -- 20 < > = values in this interval not displayed. Microbiology Results Procedure Component Value Units Date/Time Urine culture [[id number]] Collected: 06/29/24 0206 Specimen: Urine from Jorgensen Catheter Specimen Updated: 06/30/24 0722 Specimen Notes URINE RECEIVED WITHOUT PRESERVATIVE Culture NO GROWTH AT <1000 CFU/mL Urine culture [[id number]] Collected: 06/28/24 210 Specimen: Urine from Jorgensen Catheter Specimen Updated: 06/30/24 0908 Culture NO GROWTH AT <1000 CFU/mL Blood culture, peripheral #1 [[id number]] Collected: 06/28/24 191 Specimen: Blood Updated: 06/30/242229 Specimen Notes PENDING Culture NO GROWTH 2 DAYS Blood culture, peripheral #2 [[id number]] Collected: 06/28/241900 Specimen: Blood Updated: 06/30/242230 Specimen Notes PENDING Culture NO GROWTH 2 DAYS SARS/FLU A+B/RSV by NAAT/Molecular (M4RT Collection Tube) [[id number]] Collected: 06/28/241809 Specimen: Nasopharynx Updated: 06/28/241946 FLU A PCR Negative FLU B PCR Negative RSV by PCR Negative SARS CoV 2 BY PCR Not Detected Physical Exam: This a 78 y.o. patient Patient Vitals for the past 24 hrs: Temp Temp src Pulse Resp SpO2 Weight 07/01/24 0700 36.9 C (98.5 F) Oral 60 23 97 % -- 07/01/24 0600 -- -- 62 24 96 % -- 07/01/24 0500 -- -- 60 22 96 % 99.4 kg (219 lb 2.2 oz) 07/01/24 0400 -- -- 60 (!) 31 96 % -- 07/01/24 0300 36.8 C (98.3 F) Oral 62 15 95 % -- 07/01/24 0200 -- -- 63 (!) 36 96 % -- 07/01/24 0100 -- -- 64 (!) 30 95 % -- 07/01/24 0000 -- -- 61 (!) 28 95 % -- 06/30/24 2300 37.2 C (98.9 F) Oral 63 (!) 27 95 % -- 06/30/24 2200 -- -- 72 19 96 % -- 06/30/24 2100 -- -- 65 (!) 27 97 % -- 06/30/241999 -- -- 65 (!) 30 95 % -- 06/30/24 1900 37.4 C (99.4 F) Oral 67 (!) 30 94 % -- 06/30/24 1800 -- -- 66 (!) 31 95 % -- 06/30/24 1700 -- -- 64 25 95 % -- 06/30/24 1654 -- -- 65 (!) 28 95 % -- 06/30/24 1600 -- -- 65 23 95 % -- 06/30/24 1400 -- -- 64 24 95 % -- 06/30/24 1302 -- -- 66 (!) 29 94 % -- 06/30/24 1300 -- -- 65 (!) 29 95 % -- 06/30/24 1255 -- -- 66 (!) 26 95 % -- 06/30/24 1200 -- -- 64 (!) 28 95 % -- 06/30/24 1100 36.6 C (97.9 F) Oral 63 (!) 27 95 % -- 06/30/24 1000 -- -- 62 (!) 27 95 % -- 06/30/24 0907 -- -- 62 21 95 % -- 06/30/24 0900 -- -- 62 19 94 % -- 06/30/24 0800 -- -- 64 25 96 % -- Constitutional: Patient in no acute distress Neuro: alert and oriented to person place and time. Skin: Normal, skin dry and warm, no visible rashes or lesions Respiratory: Nonlabored breathing on room air Cardiovascular: Regular rate and rhythm Abdomen: Soft, non-tender, non-distended, no signs of peritonitis Lines/drains: 16 Bangladeshi Jorgensen catheter in place with a violeta red urine, draining well. No clots present LABS: Results from last 7 days Lab Units 07/01/24 0215 06/30/24 1242 06/30/24 0905 06/30/24 0210 06/29/24 0845 06/29/24 0440 WBC X10E9/L 9.5 -- -- 10.1 -- 11.7* HEMOGLOBIN g/dL 10.2* 10.1* 10.0* 10.4* < > 8.1* HEMATOCRIT % 29.9* 29.7* 29.1* 30.3* < > 23.6* PLATELETS X10E9/L 235 -- -- 197 -- 193 < > = values in this interval not displayed. Results from last 7 days Lab Units 07/01/24 0607 07/01/24 0215 06/30/24 0400 06/30/24 0210 06/29/24 0601 06/29/24 0440 POTASSIUM mmol/L -- 3.7 -- 4.2 -- 3.7 CHLORIDE mmol/L -- 111* -- 112* -- 108 CO2 mmol/L -- 25 -- 22 -- 23 BUN mg/dL -- 16 -- 20 -- 17 CREATININE mg/dL -- 1.24 -- 1.39* -- 1.57* BEDSIDE GLUCOSE mg/dL 92 -- < > -- < > -- GLUCOSE mg/dL -- 103* -- 69 -- 111* CALCIUM mg/dL -- 7.9* -- 7.4* -- 7.6* < > = values in this interval not displayed. No results found for: PSA Urinalysis: Lab Results Component Value Date COLOR ALISSA (A) 06/29/2024 TURBIDITY CLEAR 06/29/2024 SPECIFICGRA 1.015 06/29/2024 NITRITE Negative 06/29/2024 PHURINE 5.5 06/29/2024 LEUKOCYTE Negative 06/29/2024 PROTEIN 50 (A) 06/29/2024 KETONES Negative 06/29/2024 UROBILINOGEN <1.1 06/29/2024 BLOODHGB Large (A) 06/29/2024 Assessment and Plan Assessment: Left renal hematoma: Has received 3 units of blood. Hemoglobin stable at this time Hematuria: Still present, but improving. Urine is violtea red and see through. No clots present. Catheter draining well Hydronephrosis with stent in place: Creatinine downtrending at this time Renal calculi Plan: No acute urological interventions planned at this time as patient is hemodynamically stable. Hemoglobin is rising appropriately after administration of 3 units of blood If patient becomes unstable, would recommend obtaining a CTA of the abdomen/pelvis to determine if any active extravasation. If positive, will need Interventional Radiology consultation for embolization Creatinine has downtrended at this time. No need for exchange of ureteral stent or nephrostomy tube. Maintain current Jorgensen catheter in place. Irrigate as needed if catheter stops draining Notify Urology Service if hematuria worsens or catheter stops draining Draining well at this time, clear pink tinged urine Please keep on bedrest Can trend Hgb BID Hold all anticoagulation Will discuss resuming home eliquis tomorrow Urology will continue to follow closely Dale Fierro MD PGY1 Urology Cosigned by Alfred Valenzuela MD at 07/01/2024 4:05 PM EST Associated attestation - Alfred Valenzuela MD - 07/01/2024 4:05 PM EST Attending Attestation: I saw the patient. I performed the critical/archer portions of the service. I was directly involved in the management and treatment plan of the patient. I reviewed the resident's note. Additional Notes/Findings: Hemoglobin stable, decreased frequency of hemoglobin checks to every 12 hours. Creatinine continues to improve. No further urologic intervention at this time. TRAUMA SURGERY - PROGRESS NOTE Patient: Neptali Loyola Date of : 1945 AGE 78 y.o. SEX male Assessment / Plan Fall Left Renal Hematoma -Consult to Urology -Continue bedrest -If pt becomes unstable, Urology recommends IR for embolization Acute Hypotension and ABLA -SICU admission -3 units PRBC since admisison -ART line -07/01 HH stable Lines and Tubes: PIV, ART line Pain control: Okay for oral meds, pain under control this morning Nutrition: Trauma okay with diet today, HH stable, not received blood in 24 hours Prophylaxis: Chemical anticoagulation on hold due to Solid Organ Injury -Okay for EPC cuffs Disposition: SICU Medical Decision Making: high Subjective Pt resting in bed. HH stable. Okay for diet per trauma. Objective Vital signs: Vitals: 07/01/24 0400 07/01/24 0500 07/01/24 0600 07/01/24 0700 BP: Pulse: 60 60 62 60 Resp: (!) 31 22 24 23 Temp: 36.9 C (98.5 F) TempSrc: Oral SpO2: 96% 96% 96% 97% Weight: 99.4 kg (219 lb 2.2 oz) Height: Temperature Range Last 24 Hours : Temp: 36.9 C (98.5 F) Temp Av C (98.6 F) Min: 36.6 C (97.9 F) Max: 37.4 C (99.4 F) Admit Weight: 93 kg (205 lb) Body mass index is 29.72 kg/m . Last Weights: Wt Readings from Last 3 Encounters: 07/01/24 99.4 kg (219 lb 2.2 oz) 06/28/24 93 kg (205 lb) I/O's: Intake/Output Summary (Last 24 hours) at 07/01/2024 0730 Last data filed at 07/01/2024 0700 Gross per 24 hour Intake 829.95 ml Output 1835 ml Net -1005.05 ml Physical Exam HEENT: Atraumatic EOMI PERRL 3mm Neck: Trachea Midline Non Tender to palpation No pain with Flex / Ext / Lat Flex / Rotation, Axial Load & distraction Lungs:Good air movement B, CTA B, No Ronchi, No Wheeze No Chest wall tenderness, No Crepitus Unlabored, O2 per Nasal cannula Heart: Heart tones present, No Murmur noted, No CP, No palpitations Abd: Soft, No guarding, No rigidity No seatbelt sign / Brusing Non Tender RUQ / LUQ / RLQ / LLQ -Fole yin place Extremities: RUE: 5/5 strength LUE: 5/5 strength, ART line in place RLE: 5/5 strength LLE: 5/5 strength Pulses 2+ x 4 Intact to light touch No calf/thigh tenderness Neuro: Alert, pleasant, appropriate, Oriented to person, place, time Labs Results from last 7 days Lab Units 07/01/24 0215 06/30/24 1242 06/30/24 0905 06/30/24 0210 06/30/24 0045 06/29/24 0845 06/29/24 0440 06/29/24 0137 06/28/24 2115 06/28/24 1901 WBC X10E9/L 9.5 -- -- 10.1 -- -- 11.7* 10.6 -- 13.8* HEMOGLOBIN g/dL 10.2* 10.1* 10.0* 10.4* 10.1* < > 8.1* 6.9* < > 8.6* HEMATOCRIT % 29.9* 29.7* 29.1* 30.3* 29.9* < > 23.6* 20.6* < > 25.7* PLATELETS X10E9/L 235 -- -- 197 -- -- 193 186 -- 252 < > = values in this interval not displayed. Results from last 7 days Lab Units 07/01/24 0607 07/01/24 0215 07/01/24 0057 06/30/24 1728 06/30/24 1236 06/30/24 0400 06/30/24 0210 06/29/24 0601 06/29/24 0440 06/29/24 0137 06/28/24 1901 SODIUM mmol/L -- 141 -- -- -- -- 142 -- 139 140 137 POTASSIUM mmol/L -- 3.7 -- -- -- -- 4.2 -- 3.7 3.6 3.8 CO2 mmol/L -- 25 -- -- -- -- 22 -- 23 21* 23 BUN mg/dL -- 16 -- -- -- -- 20 -- 17 16 20 CREATININE mg/dL -- 1.24 -- -- -- -- 1.39* -- 1.57* 1.46* 1.90* BEDSIDE GLUCOSE mg/dL 92 -- 90 88 78 < > -- < > -- -- -- GLUCOSE mg/dL -- 103* -- -- -- -- 69 -- 111* 105* 137* < > = values in this interval not displayed. Results from last 7 days Lab Units 06/29/24 0137 06/28/24 2313 06/28/24 1901 INR 1.6* 1.7* 3.1* PROTIME sec 18.1* 18.9* 34.3* APTT sec 33 -- 40* Recent Studies X-ray chest 1 view Result Date: 06/30/2024 CLINICAL INFORMATION: Clinical concern for pulmonary edema COMPARISON: Chest radiograph dated 06/29/2024. VIEWS: 1. FINDINGS: Cardiac and mediastinal shadows are normal. 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 Left basilar infiltrate. No effusions. No pneumothorax. No free air below the diaphragm. IMPRESSION: Left basilar infiltrate. No radiographic evidence for pulmonary edema. Finalized by Frieda Shell MD on 06/30/2024 8:17 PM Allergies No Known Allergies Current Medications SCHEDULED amiodarone, 200 mg, oral, BID atorvastatin, 80 mg, oral, Nightly famotidine, 20 mg, intravenous, Q24H TYRON insulin lispro, 2-10 Units, subcutaneous, Q6H lidocaine, 1 patch, transdermal, Daily memantine, 10 mg, oral, BID polyethylene glycol, 17 g, oral, Daily sennosides-docusate sodium, 2 tablet, oral, BID sodium chloride, 3 mL, intravenous, Q12H TYRON PRN calcium gluconate OR calcium gluconate OR calcium gluconate dextrose dextrose 50 % in water (D50W) fentaNYL flu vacc [id number] 6mos up(PF) glucagon (human recombinant) ipratropium-albuteroL magnesium sulfate OR magnesium sulfate ondansetron pneumococcal conj. 20-valent potassium chloride OR potassium chloride potassium chloride in water OR potassium chloride in water sodium phosphate IV OR sodium phosphate IV - central line OR sod phos di, mono-K phos mono sodium chloride sodium chloride 0.9 % Current Infusions dextrose 5 % in water, 75 mL/hr, Last Rate: 75 mL/hr (07/01/24717) sodium chloride 0.9 %, 20 mL/hr sodium chloride 0.9 %, 3 mL/hr, Last Rate: 3 mL/hr (06/30/242038) REINALDO Santillan 07/01/2432 SICU Academic Critical Care PROGRESS NOTE Admission Date: 06/29/2024 1:19 AM Attending Physician: Ru Schwarz MD Date of 1945 Hospital Day: 2 day(s) Neptali Loyola is a 78 y.o. male who presented to [facility] ED via EMS as a Level 2 trauma after sustaining a fall from standing height. Patient was hypotensive upon arrival with SBP in the 80s and was started on IV fluids. Trauma level was upgraded to Level 1 given hypotension. Patient reports he was at his son's home and fell forward in the bathroom after getting dizzy and stumbling. He denies hitting anything, however is unsure about loss of consciousness. Unable to give full details. Denies any acute pain including no abdominal pain, no chest pain, no pain in the head or extremities. Denies any shortness of breath, nausea, vomiting or fevers. Patient is on Eliquis and Plavix for history of AFib and CAD. Patient has reportedly been taking his medications per his son. At the outside ED, CT abdomen pelvis showed possible hematoma or active bleed concerning for renal laceration. Patient was given Kcentra and 1 unit PRBC for hypotension with improvement of blood pressure. He was transferred to surgical ICU for close monitoring. Upon arrival he was noted to be hemodynamically stable, alert and oriented x3, only complaining of moderate pain left back Patient required transfusion of additional unit of blood due to hypotension and symptomatic anemia overnight from the to . Hemoglobin responded appropriately. Maintenance fluids were switched for hypoglycemia. Overnight Events: No acute events overnight. Patient denies any pain. Physical Exam: Vital Signs: BP 93/46 Pulse 62 Temp 36.8 C (98.3 F) (Oral) Resp 24 Ht 182.9 cm (6') Wt 99.4 kg (219 lb 2.2 oz) SpO2 96% BMI 29.72 kg/m General: Awake, alert and oriented x3, in no acute distress HENT: Head atraumatic, normocephalic, external ears and nose are normal Eyes: Conjunctivae clear, non-icteric, EOMI Pulmonary: Regular, non-labored respirations, without use of accessory muscles, on nasal cannula Cardiovascular: Regular rate and rhythm, radial pulses 2+, non-edematous x4 extremities Abdomen: Soft, tender flank, non-distended Musculoskeletal: Range of motion grossly normal x4 extremities, no deformity x4 extremities Neurological: CN 2-12 grossly intact, sensation grossly intact Skin: Warm, dry, without jaundice Intake/Output Summary (Last 24 hours) at 07/01/2024 0637 Last data filed at 07/01/2024 0600 Gross per 24 hour Intake 915.78 ml Output 1710 ml Net -794.22 ml O2 Device: Nasal cannula Ventilator Invasive Hemodynamic [place] Results from last 3 days Lab Units 07/01/24 02106/30/24 02106/29/24 0440 06/29/24 0137 06/28/24 1901 BUN mg/dL 16 20 17 16 20 CREATININE mg/dL 1.24 1.39* 1.57* 1.46* 1.90* POTASSIUM mmol/L 3.7 4.2 3.7 3.6 3.8 CO2 mmol/L 22 23 21* 23 CHLORIDE mmol/L 111* 112* 108 111* 108 MAGNESIUM mg/dL -- -- -- -- 1.9 AST U/L -- -- -- 15 25 ALT U/L -- -- -- 9 16 ALK PHOS U/L -- -- -- 63 70 LIPASE U/L -- -- -- 8* -- Results from last 3 days Lab Units 06/29/24 01306/28/24 2313 06/28/24 1901 INR 1.6* 1.7* 3.1* PROTIME sec 18.1* 18.9* 34.3* Results from last 3 days Lab Units 07/01/2421406/30/24 1242 06/30/24 0905 06/30/24 0210 06/30/24 0045 06/29/24 1805 06/29/24 1410 06/29/24 0845 06/29/24 04406/29/24 01306/28/24 2115 06/28/24 1901 WBC X10E9/L 9.5 -- -- 10.1 -- -- -- -- 11.7* 10.6 -- 13.8* HEMOGLOBIN g/dL 10.2* 10.1* 10.0* 10.4* 10.1* 8.8* 9.4* 7.9* 8.1* 6.9* 7.9* 8.6* HEMATOCRIT % 29.9* 29.7* 29.1* 30.3* 29.9* 26.1* 26.8* 24.1* 23.6* 20.6* 23.3* 25.7* PLATELETS X10E9/L 235 -- -- 197 -- -- -- -- 193 186 -- 252 MCV fL 92 -- -- 92 -- -- -- -- 93 94 -- 94 MCH pg 31.3 -- -- 31.5 -- -- -- -- 31.7 31.4 -- 31.4 MCHC g/dL 34.2 -- -- 34.3 -- -- -- -- 34.1 33.4 -- 33.6 RDW % 15.7* -- -- 15.6* -- -- -- -- 14.7 14.5 -- 15.0 EOS ABS AUTO X10E9/L 0.1 -- -- 0.1 -- -- -- -- 0.0 0.0 -- 0.0 Microbiology Results Procedure Component Value Units Date/Time Urine culture [[id number]] Collected: 06/29/24 0206 Specimen: Urine from Jorgensen Catheter Specimen Updated: 06/30/24 0722 Specimen Notes URINE RECEIVED WITHOUT PRESERVATIVE Culture NO GROWTH AT <1000 CFU/mL Urine culture [[id number]] Collected: 06/28/24 210 Specimen: Urine from Jorgensen Catheter Specimen Updated: 06/30/24 0908 Culture NO GROWTH AT <1000 CFU/mL Blood culture, peripheral #1 [[id number]] Collected: 06/28/24 191 Specimen: Blood Updated: 06/30/242229 Specimen Notes PENDING Culture NO GROWTH 2 DAYS Blood culture, peripheral #2 [[id number]] Collected: 06/28/24 1901 Specimen: Blood Updated: 06/30/24 223 Specimen Notes PENDING Culture NO GROWTH 2 DAYS SARS/FLU A+B/RSV by NAAT/Molecular (M4RT Collection Tube) [[id number]] Collected: 06/28/24 1810 Specimen: Nasopharynx Updated: 06/28/24 194 FLU A PCR Negative FLU B PCR Negative RSV by PCR Negative SARS CoV 2 BY PCR Not Detected Glucose Results from last 7 days Lab Units 07/01/24 0215 07/01/24 0057 06/30/24 1728 06/30/24 1236 06/30/24 0538 06/30/24 0400 06/30/24 0210 06/30/24 0020 06/29/24 1804 06/29/24 1306 06/29/24 0601 06/29/24 0440 BEDSIDE GLUCOSE mg/dL -- 90 88 78 67 90 -- 71 75 78 108* -- GLUCOSE mg/dL 103* -- -- -- -- -- 69 -- -- -- -- 111* Lines/Drains Peripheral IV 06/28/24 Posterior;Right Hand (Active) Line Status Saline locked;Alcohol sponge cap maintained 07/01/24299 Site Assessment Clean;Dry;Intact 07/01/24299 Dressing Type Occlusive;Transparent 07/01/24299 Dressing Status Clean;Dry;Intact 07/01/24299 Specimen Obtained Yes 06/28/241804 Specimen Status Sent for analysis 06/28/241804 Amount Drawn (mL) 10 mL 06/28/241804 Peripheral IV 06/28/24 Left Antecubital (Active) Line Status Infusing;Connections checked/tightened 07/01/24 030 Site Assessment Clean;Dry;Intact 07/01/24 030 Dressing Type Occlusive;Transparent 07/01/24 030 Dressing Status Clean;Dry;Intact 07/01/24 030 Dressing Intervention Initial dressing 06/28/241999 Dressing Change Due (Non-Gauze) 07/05/24 06/28/241999 Urinary Catheter 06/28/24 Single lumen (Active) Catheter Status Patent 07/01/24 030 Site Assessment Clean;Skin intact;Bleeding 07/01/24 030 Collection Container Standard drainage bag/container 07/01/24 030 Securement Method Securing device (Describe) 07/01/24 030 Tamper Evident Seal Intact No 07/01/24 030 Reason for Continuing Strict I&O in critically ill patient 07/01/24 030 Urine Color Bloody 07/01/24 030 Urine Appearance Cloudy 07/01/24 0300 Output (mL) 145 mL 07/01/24 06 Arterial Line 06/29/24 Left Radial (Active) Line Status Infusing;Pulsatile blood flow 07/01/24 030 Line Interventions Leveled;Connections checked and tightened;Pressure bag maintained;Armboard;Flushed per protocol 07/01/24433 Waveform Appropriate;Square wave test performed 02/17/25 0434 Site Assessment Clean;Dry;Intact 07/01/24 0300 Dressing Type Occlusive;Transparent 07/01/24 0300 Dressing Status Clean;Dry;Intact 07/01/24 0300 Dressing Intervention Dressing changed 06/29/24 0548 Color/Movement/Sensation Capillary refill less than 3 sec 07/01/24 0300 Patient Tolerance of Line Care Tolerated well 07/01/24 0300 Line Necessity Invasive hemodynamic monitoring 07/01/24 0300 Line Necessity Reviewed With cc 07/01/24 0300 Dressing Change Due (Non-Gauze) 07/06/24 06/29/24 0548 ACTIVE PROBLEM LIST: Fall from standing Left renal hematoma Hypotension Acute blood loss anemia Eliquis coagulopathy status post reversal with Kcentra CKD ASSESSMENT/PLAN: Neptali Loyola is a 78 y.o. male /p fall with left renal hematoma 1. Neuro Hospital Meds: Sedation: None Analgesia: Fentanyl prn, Lidoderm, Ofirmev prn Other: Memantine Home Meds: Memantine PMH: dementia 2. Pulmonary Breathing Support: Nasal cannula Settings: 2L/min SpO2: >95% Continuous pulse oximetry Wean O2 as able Hospital Meds: Duoneb prn 3. Cardiovascular Hemodynamics: Paced rate Normotensive Pressors: None Goal MAP >65 Continuous cardiac monitoring Hospital Meds: Amiodarone 200 mg BID, Lipitor PMH: CAD, hypertension, hyperlipidemia, previous SC, Afib, pacemaker ECHO in 2023 demonstrating EF 20% Home meds: Eliquis, Plavix, amiodarone, coreg 4. GI Diet: NPO except medications, Ice chips okay > Diet okay per trauma Bowel Function: Monitor Hospital Meds: Pepcid, Zofran, bowel reg - MiraLAX, Senokot 5. Renal/Genitourinary Lab Results Component Value Date SODIUM 141 07/01/2024 SODIUM 142 06/30/2024 SODIUM 139 06/29/2024 CL 111 (H) 07/01/2024 CL 112 (H) 06/30/2024 CL 108 06/29/2024 K 3.7 07/01/2024 K 4.2 06/30/2024 K 3.7 06/29/2024 CO2 25 07/01/2024 CO2 22 06/30/2024 CO2 23 06/29/2024 Lab Results Component Value Date BUN 16 07/01/2024 BUN 20 06/30/2024 BUN 17 06/29/2024 CREATININE 1.24 07/01/2024 CREATININE 1.39 (H) 06/30/2024 CREATININE 1.57 (H) 06/29/2024 CALCIUM 7.9 (L) 07/01/2024 CALCIUM 7.4 (L) 06/30/2024 CALCIUM 7.6 (L) 06/29/2024 MG 1.9 06/28/2024 PHOSPHORUS 2.4 07/01/2024 PHOSPHORUS 3.5 06/30/2024 PHOSPHORUS 3.3 06/29/2024 Replace electrolytes PRN per ICU protocol Left renal hematoma - monitor hemoglobin and UOP Urology on board: No acute urological interventions at this time, maintain jorgensen, bedrest, H/H q6h > BID if stable, hold anticoagulation, if unstable IR for embolization Monitor creatinine, hemoglobin and UOP. Continue bedrest Fluid Balance: IV Fluids: D5 @ 75 mL/hr UOP/24 H: 1.7L Net Fluid/24H: -880mL Net Fluid Since Admission: +1.1L Strict monitoring of Ins and Outs Home Meds: Lasix 40 mg prn, spironolactone nightly, Farxiga PMH: CKD, nephrolithiasis PSH: Left Lithotripsy with stent placement 06/19/24 6. Heme Labs: Lab Results Component Value Date HGB 10.2 (L) 07/01/2024 HGB 10.1 (L) 06/30/2024 HGB 10.0 (L) 06/30/2024 PLT 235 07/01/2024 PLT 197 06/30/2024 PLT 193 06/29/2024 Lab Results Component Value Date INR 1.6 (H) 06/29/2024 INR 1.7 (H) 06/28/2024 INR 3.1 (H) 06/28/2024 Type and Screen: A+ Blood Products Administered: 2u PRBC Received K centra on admission Will continue to monitor H&H q12h and transfuse PRN 7. ID Tmax/24H: 37.4C (06/30 @ 1900) Labs: Lab Results Component Value Date WBC 9.5 07/01/2024 WBC 10.1 06/30/2024 WBC 11.7 (H) 06/29/2024 Micro: UC 06/29: NGTD BC 06/28: NGTD Hospital Meds: Antibiotics: None 8. Endocrine Lab Results Component Value Date GLU 103 (H) 07/01/2024 GLU 90 07/01/2024 GLU 88 06/30/2024 Goal Blood Glucose <180 mg/dL Hospital Meds: On maintenance D5 due to persistent hypoglycemia > improved Home Meds: Farxiga 9. Musculoskeletal/Integumentary Bedrest 10. Prophylaxis Respiratory: Not indicated GI: Not indicated DVT: SCD Cuffs while in bed, hold chemical prophylaxis 11. Lines Jorgensen catheter PIVs Arterial line Disposition: Guarded, SICU Julia Conroy DO OBGYN Resident, PGY-1 SICU Cosigned by Wilberto Loomis MD at 07/01/2024 9:59 AM EST Associated attestation - Wilberto Loomis MD - 07/01/2024 9:59 AM EST Attending Attestation: I saw the patient. I participated and was physically present during the critical/archer portions of the service. I was directly involved in the management and treatment plan of the patient. I reviewed the resident's note. Additional Notes/Findings: <<<<<<<<<<<<<<<<<< Surgical Critical Care Attending >>>>>>>>>>>>>>>>>>>>>>>> I have seen and evaluated the patient, and have also reviewed the history above. I have repeated and performed the archer portions of the physical exam and concur with the resident's/advanced practice provider findings. I have reviewed all pertinent laboratory findings and imaging reports/films. We have discussed the patient's status and the appropriate treatment options/plan on the day of the encounter. I agree with the plan as noted above. Critical care time spent with the patient today = 31 minutes. Diagnoses: Hypotension Hypoglycemia Acute blood loss anemia Hyperchloridemia Hypocalcemia Acute respiratory failure with hypoxia Wilberto Loomis MD, FACS [facility] General Surgeons Minimally Invasive Robotic Surgery Surgical Critical Care Trauma Office: [phone] Please feel free to call with questions at anytime. TRAUMA SURGERY - PROGRESS NOTE Patient: Neptali Loyola Date of : 1945 AGE 78 y.o. SEX male Assessment / Plan Fall Left Renal Hematoma -Consult to Urology -COntinue bedrest -If pt becomes unstable, Urology recommends IR for embolization Acute Hypotension and ABLA -SICU admission -3 units PRBC since admisison -ART line Lines and Tubes: piv Pain control: Ofirmev, fentanyl Nutrition: Discuss with critical care, HgB have been stable, but did receive blood last evening Prophylaxis: No Ac per Urology at this time -EPC cuffs Disposition: SICU Medical Decision Making: high Subjective Pt resting in bed. Tired Objective Vital signs: Vitals: 06/30/24 0300 06/30/24 0400 06/30/24 0500 06/30/24 0600 BP: 93/46 Pulse: 60 60 61 62 Resp: 21 20 (!) 29 24 Temp: 36.6 C (97.8 F) TempSrc: Oral SpO2: 95% 96% 97% 96% Weight: 102.4 kg (225 lb 12 oz) Height: Temperature Range Last 24 Hours : Temp: 36.6 C (97.8 F) Temp Av.8 C (98.2 F) Min: 36.6 C (97.8 F) Max: 37 C (98.6 F) Admit Weight: 93 kg (205 lb) Body mass index is 30.62 kg/m . Last Weights: Wt Readings from Last 3 Encounters: 06/30/24 102.4 kg (225 lb 12 oz) 06/28/24 93 kg (205 lb) I/O's: Intake/Output Summary (Last 24 hours) at 06/30/2024 0802 Last data filed at 06/30/2024 0646 Gross per 24 hour Intake 4084.89 ml Output 1485 ml Net 2599.89 ml Physical Exam HEENT: Atraumatic EOMI PERRL 3mm Neck: Trachea Midline Non Tender to palpation No pain with Flex / Ext / Lat Flex / Rotation, Axial Load & distraction Lungs:Good air movement B, CTA B, No Ronchi, No Wheeze No Chest wall tenderness, No Crepitus Unlabored, O2 per Nasal cannula Heart: Heart tones present, No Murmur noted, No CP, No palpitations Abd: Soft, No guarding, No rigidity No seatbelt sign / Brusing Non Tender RUQ / LUQ / RLQ / LLQ -Fole yin place Extremities: RUE: 5/5 strength LUE: 5/5 strength, ART line in place RLE: 5/5 strength LLE: 5/5 strength Pulses 2+ x 4 Intact to light touch No calf/thigh tenderness Neuro: Alert, pleasant, appropriate, Oriented to person, place, time Labs Results from last 7 days Lab Units 06/30/24 0210 06/30/24 0045 06/29/24 1805 06/29/24 1410 06/29/24 0845 06/29/24 0440 06/29/24 0137 06/28/24 2115 06/28/24 1901 WBC X10E9/L 10.1 -- -- -- -- 11.7* 10.6 -- 13.8* HEMOGLOBIN g/dL 10.4* 10.1* 8.8* 9.4* 7.9* 8.1* 6.9* < > 8.6* HEMATOCRIT % 30.3* 29.9* 26.1* 26.8* 24.1* 23.6* 20.6* < > 25.7* PLATELETS X10E9/L 197 -- -- -- -- 193 186 -- 252 < > = values in this interval not displayed. Results from last 7 days Lab Units 06/30/24 0538 06/30/24 0400 06/30/24 0210 06/30/24 0020 06/29/24 1804 06/29/24 0601 06/29/24 0440 06/29/24 0137 02/14/25 1901 SODIUM mmol/L -- -- 142 -- -- -- 139 140 137 POTASSIUM mmol/L -- -- 4.2 -- -- -- 3.7 3.6 3.8 CO2 mmol/L -- -- 22 -- -- -- 23 21* 23 BUN mg/dL -- -- 20 -- -- -- 17 16 20 CREATININE mg/dL -- -- 1.39* -- -- -- 1.57* 1.46* 1.90* BEDSIDE GLUCOSE mg/dL 67 90 -- 71 75 < > -- -- -- GLUCOSE mg/dL -- -- 69 -- -- -- 111* 105* 137* < > = values in this interval not displayed. Results from last 7 days Lab Units 06/29/24 0137 06/28/24 2313 06/28/241900 INR 1.6* 1.7* 3.1* PROTIME sec 18.1* 18.9* 34.3* APTT sec 33 -- 40* Recent Studies No results found. Allergies No Known Allergies Current Medications SCHEDULED amiodarone, 200 mg, oral, BID atorvastatin, 80 mg, oral, Nightly famotidine, 20 mg, intravenous, Q24H TYRON insulin lispro, 2-10 Units, subcutaneous, Q6H lidocaine, 1 patch, transdermal, Daily memantine, 10 mg, oral, BID polyethylene glycol, 17 g, oral, Daily sennosides-docusate sodium, 2 tablet, oral, BID sodium chloride, 3 mL, intravenous, Q12H TYRON PRN acetaminophen calcium gluconate OR calcium gluconate OR calcium gluconate dextrose dextrose 5 % in water dextrose 50 % in water (D50W) fentaNYL flu vacc [id number] 6mos up(PF) glucagon (human recombinant) ipratropium-albuteroL magnesium sulfate OR magnesium sulfate ondansetron pneumococcal conj. 20-valent potassium chloride OR potassium chloride potassium chloride in water OR potassium chloride in water sodium phosphate IV OR sodium phosphate IV - central line OR sod phos di, mono-K phos mono sodium chloride sodium chloride 0.9 % sodium chloride 0.9 % Current Infusions dextrose 5 % in water, 100 mL/hr, Last Rate: 100 mL/hr (06/30/24 06) dextrose 5 % in water, 50 mL/hr sodium chloride 0.9 %, 20 mL/hr sodium chloride 0.9 %, 20 mL/hr sodium chloride 0.9 %, 3 mL/hr, Last Rate: 3 mL/hr (06/30/24 0646) REINALDO Santillan 06/30/24813 Images from the original note were not included. Sonido Trinidad Jr., M.D., Caden Friedman M.D., Mookie Frey M.D., Debra Kerr M.D., Susana Almeida M.D, Alfred Valenzuela M.D., Tom Pratt M.D., Fredis Villarreal M.D., Javier Montes M.D. Urology Progress Note Patient: Neptali Loyola Date of : 1945 INTERVAL HISTORY: Received a total of 3 units of blood yesterday No acute events overnight Vital signs remained stable, blood pressure within normal limits Jorgensen in place with violeta red urine. Improved compared to yesterday. No issues with drainage WBC 10.1 Hemoglobin 10.4 (10.1) Creatinine 1.39 (1.57) Urine culture pending Physical Exam: This a 78 y.o. patient Patient Vitals for the past 24 hrs: BP Temp Temp src Pulse Resp SpO2 Height Weight 06/30/24 0600 -- -- -- 62 24 96 % -- -- 06/30/24 0500 -- -- -- 61 (!) 29 97 % -- 102.4 kg (225 lb 12 oz) 06/30/24 0400 -- -- -- 60 20 96 % -- -- 06/30/24 0300 93/46 36.6 C (97.8 F) Oral 60 21 95 % -- -- 06/30/24 0200 -- -- -- 66 21 96 % -- -- 06/30/24 0100 100/53 -- -- 60 (!) 26 96 % -- -- 06/30/24 0000 -- -- -- 65 23 94 % -- -- 06/29/24 2300 -- 36.6 C (97.9 F) Oral 72 20 95 % -- -- 06/29/242199 -- -- -- 60 (!) 26 98 % -- -- 06/29/242134 102/42 36.6 C (97.8 F) Oral 66 (!) 30 -- -- -- 06/29/242119 -- 37 C (98.6 F) Oral 68 (!) 26 98 % -- -- 06/29/242099 -- -- -- 73 (!) 30 97 % -- -- 06/29/242001 -- -- -- 69 (!) 28 98 % -- -- 06/29/241999 -- -- -- 70 25 98 % -- -- 06/29/24 191 -- -- -- 75 (!) 26 97 % -- -- 06/29/24 1900 -- 36.6 C (97.8 F) Oral 72 20 90 % -- -- 06/29/24 1800 -- -- -- 72 22 96 % -- -- 06/29/24 1700 -- -- -- 72 25 95 % -- -- 06/29/24 1600 -- -- -- 65 (!) 29 97 % -- -- 06/29/24 1500 -- 36.9 C (98.4 F) Oral 67 24 93 % -- -- 06/29/24 1400 -- -- -- 66 23 95 % -- -- 06/29/24 1300 -- -- -- 67 (!) 31 95 % -- -- 06/29/24 1245 -- -- -- 63 12 (!) 79 % -- -- 06/29/24 1230 -- -- -- 60 (!) 30 96 % -- -- 06/29/24 1217 -- -- -- -- -- -- 182.9 cm (6') -- 06/29/24 1215 -- -- -- 61 (!) 28 96 % -- -- 06/29/24 1200 -- 36.9 C (98.4 F) -- 63 22 95 % -- -- 06/29/24 1145 -- 36.9 C (98.4 F) -- 63 (!) 30 95 % -- -- 06/29/24 1130 -- 36.9 C (98.4 F) Oral 63 24 96 % -- -- 06/29/24 1115 -- -- -- 63 (!) 26 96 % -- -- 06/29/24 1100 -- -- -- 62 20 94 % -- -- 06/29/24 1000 -- -- -- 65 21 96 % -- -- 06/29/24 0900 -- -- -- 60 22 95 % -- -- 06/29/24 0830 -- -- -- 63 (!) 26 97 % -- -- 06/29/24 0815 -- -- -- 63 (!) 26 97 % -- -- 06/29/24 0800 -- -- -- 62 20 92 % -- -- Constitutional: Patient in no acute distress Neuro: alert and oriented to person place and time. Skin: Normal, skin dry and warm, no visible rashes or lesions Respiratory: Nonlabored breathing on room air Cardiovascular: Regular rate and rhythm Abdomen: Soft, non-tender, non-distended, no signs of peritonitis Lines/drains: 16 [place] J[address] catheter in place with a violeta red urine, draining well. No clots present LABS: Results from last 7 days Lab Units 06/30/24 0210 06/30/24 0045 06/29/24 1805 06/29/24 0845 06/29/24 0440 06/29/24 0137 WBC X10E9/L 10.1 -- -- -- 11.7* 10.6 HEMOGLOBIN g/dL 10.4* 10.1* 8.8* < > 8.1* 6.9* HEMATOCRIT % 30.3* 29.9* 26.1* < > 23.6* 20.6* PLATELETS X10E9/L 197 -- -- -- 193 186 < > = values in this interval not displayed. Results from last 7 days Lab Units 06/30/24 0538 06/30/24 0400 06/30/24 0210 06/29/24 0601 06/29/24 0440 06/29/24 0137 POTASSIUM mmol/L -- -- 4.2 -- 3.7 3.6 CHLORIDE mmol/L -- -- 112* -- 108 111* CO2 mmol/L -- -- 22 -- 23 21* BUN mg/dL -- -- 20 -- 17 16 CREATININE mg/dL -- -- 1.39* -- 1.57* 1.46* BEDSIDE GLUCOSE mg/dL 67 < > -- < > -- -- GLUCOSE mg/dL -- -- 69 -- 111* 105* CALCIUM mg/dL -- -- 7.4* -- 7.6* 6.9* < > = values in this interval not displayed. No results found for: PSA Urinalysis: Lab Results Component Value Date COLOR ALISSA (A) 06/29/2024 TURBIDITY CLEAR 06/29/2024 SPECIFICGRA 1.015 06/29/2024 NITRITE Negative 06/29/2024 PHURINE 5.5 06/29/2024 LEUKOCYTE Negative 06/29/2024 PROTEIN 50 (A) 06/29/2024 KETONES Negative 06/29/2024 UROBILINOGEN <1.1 06/29/2024 BLOODHGB Large (A) 06/29/2024 Assessment and Plan Assessment: Left renal hematoma: Has received 3 units of blood. Hemoglobin stable at this time Hematuria: Still present, but improving. Urine is violeta red and see through. No clots present. Catheter draining well Hydronephrosis with stent in place: Creatinine downtrending at this time Renal calculi Plan: No acute urological interventions planned at this time as patient is hemodynamically stable. Hemoglobin is rising appropriately after administration of 3 units of blood If patient becomes unstable, would recommend obtaining a CTA of the abdomen/pelvis to determine if any active extravasation. If positive, will need Interventional Radiology consultation for embolization Creatinine has downtrended at this time. No need for exchange of ureteral stent or nephrostomy tube. Maintain current Jorgensen catheter in place. Irrigate as needed if catheter stops draining Notify Urology Service if hematuria worsens or catheter stops draining Please keep on bedrest We will check hemoglobin every 6 hours Can change to BID starting tomorrow if hemoglobin stable Hold all anticoagulation Urology will continue to follow closely Qasim Hernandez MD Urology Resident, PGY-3 Cosigned by Alfred Valenzuela MD at 06/30/2024 5:17 PM EST Associated attestation - Alfred Valenzuela MD - 06/30/2024 5:17 PM EST Attending Attestation: I saw the patient. I performed the critical/archer portions of the service. I was directly involved in the management and treatment plan of the patient. I reviewed the resident's note. Additional Notes/Findings: Hgb stable after transfusions yesterday. Continue to trend. Continue bedrest. Cr improving, no intention to change stent at this time. Will continue to monitor. SICU Academic Critical Care PROGRESS NOTE Admission Date: 06/29/2024 1:19 AM Attending Physician: Ru Schwarz MD Date of 1945 Hospital Day: 1 day(s) Neptali Loyola is a 78 y.o. male who presented to [facility] ED via EMS as a Level 2 trauma after sustaining a fall from standing height. Patient was hypotensive upon arrival with SBP in the 80s and was started on IV fluids. Trauma level was upgraded to Level 1 given hypotension. Patient reports he was at his son's home and fell forward in the bathroom after getting dizzy and stumbling. He denies hitting anything, however is unsure about loss of consciousness. Unable to give full details. Denies any acute pain including no abdominal pain, no chest pain, no pain in the head or extremities. Denies any shortness of breath, nausea, vomiting or fevers. Patient is on Eliquis and Plavix for history of AFib and CAD. Patient has reportedly been taking his medications per his son. At the outside ED, CT abdomen pelvis showed possible hematoma or active bleed concerning for renal laceration. Patient was given Kcentra and 1 unit PRBC for hypotension with improvement of blood pressure. He was transferred to surgical ICU for close monitoring. Upon arrival is noted to be hemodynamically stable, alert and oriented x3, only complaining of moderate pain left back. Overnight Events: Required 1 unit pRBC overnight for hypotension and symptomatic anemia at 8.8. Hemoglobin responded to 10. Fluids switched for hypoglycemia. Physical Exam: Vital Signs: BP 93/46 Pulse 62 Temp 36.6 C (97.8 F) (Oral) Resp 24 Ht 182.9 cm (6') Wt 102.4 kg (225 lb 12 oz) SpO2 96% BMI 30.62 kg/m General: no acute distress HENT: Head atraumatic, normocephalic Eyes: Conjunctivae clear, non-icteric, EOMI Pulmonary: Regular, non-labored respirations, on nasal cannula Cardiovascular: Regular rate and rhythm, normotensive Abdomen: Soft, tender left flank, non-distended Musculoskeletal: no deformity x4 extremities Neurological: sensation grossly intact Skin: Warm, dry, without jaundice : sanguinous output from jorgensen catheter Intake/Output Summary (Last 24 hours) at 06/30/2024 0640 Last data filed at 06/30/2024 0600 Gross per 24 hour Intake 3999.06 ml Output 1565 ml Net 2434.06 ml O2 Device: Nasal cannula Results from last 3 days Lab Units 06/30/24 0210 06/29/24 0440 06/29/24 0137 06/28/24 1901 BUN mg/dL 20 17 16 20 CREATININE mg/dL 1.39* 1.57* 1.46* 1.90* POTASSIUM mmol/L 4.2 3.7 3.6 3.8 CO2 mmol/L 22 23 21* 23 CHLORIDE mmol/L 112* 108 111* 108 MAGNESIUM mg/dL -- -- -- 1.9 AST U/L -- -- 15 25 ALT U/L -- -- 9 16 ALK PHOS U/L -- -- 63 70 LIPASE U/L -- -- 8* -- Results from last 3 days Lab Units 06/29/24 0137 06/28/24 2313 06/28/24 1901 INR 1.6* 1.7* 3.1* PROTIME sec 18.1* 18.9* 34.3* Results from last 3 days Lab Units 06/30/24 0210 06/30/24 0045 06/29/24 1805 06/29/24 1410 06/29/24 0845 06/29/24 0440 06/29/24 0137 06/28/24 2115 06/28/24 1901 WBC X10E9/L 10.1 -- -- -- -- 11.7* 10.6 -- 13.8* HEMOGLOBIN g/dL 10.4* 10.1* 8.8* 9.4* 7.9* 8.1* 6.9* 7.9* 8.6* HEMATOCRIT % 30.3* 29.9* 26.1* 26.8* 24.1* 23.6* 20.6* 23.3* 25.7* PLATELETS X10E9/L 197 -- -- -- -- 193 186 -- 252 MCV fL 92 -- -- -- -- 93 94 -- 94 MCH pg 31.5 -- -- -- -- 31.7 31.4 -- 31.4 MCHC g/dL 34.3 -- -- -- -- 34.1 33.4 -- 33.6 RDW % 15.6* -- -- -- -- 14.7 14.5 -- 15.0 EOS ABS AUTO X10E9/L 0.1 -- -- -- -- 0.0 0.0 -- 0.0 Microbiology Results Procedure Component Value Units Date/Time Urine culture [[id number]] Resulted: 06/29/24 0320 Specimen: Urine Updated: 06/29/24 0331 Urine culture [[id number]] Collected: 06/28/24 2100 Specimen: Urine Updated: 06/29/24 1454 Blood culture, peripheral #1 [[id number]] Collected: 06/28/241909 Specimen: Blood Updated: 06/29/242229 Specimen Notes PENDING Culture NO GROWTH 1 DAY Blood culture, peripheral #2 [[id number]] Collected: 06/28/24 190 Specimen: Blood Updated: 06/29/242230 Specimen Notes PENDING Culture NO GROWTH 1 DAY SARS/FLU A+B/RSV by NAAT/Molecular (M4RT Collection Tube) [[id number]] Collected: 06/28/241809 Specimen: Nasopharynx Updated: 06/28/241946 FLU A PCR Negative FLU B PCR Negative RSV by PCR Negative SARS CoV 2 BY PCR Not Detected Glucose Results from last 7 days Lab Units 06/30/24 0538 06/30/24 0400 06/30/24 0210 06/30/24 0020 06/29/24 1804 06/29/24 1306 06/29/24 0601 06/29/24 0440 06/29/24 0137 06/28/24 1901 BEDSIDE GLUCOSE mg/dL 67 90 -- 71 75 78 108* -- -- -- GLUCOSE mg/dL -- -- 69 -- -- -- -- 111* 105* 137* Lines/Drains Peripheral IV 06/28/24 Posterior;Right Hand (Active) Line Status No blood return;Saline locked;Flushed;Alcohol sponge cap changed;Connections checked/tightened 06/29/24319 Site Assessment Clean;Dry;Intact 06/29/24319 Dressing Type Occlusive;Transparent 06/29/24319 Dressing Status Clean;Dry;Intact 06/29/24319 Specimen Obtained Yes 06/28/241804 Specimen Status Sent for analysis 06/28/241804 Amount Drawn (mL) 10 mL 06/28/241804 Peripheral IV 06/28/24 Left Antecubital (Active) Line Status Blood return noted;Flushed;Infusing;Connections checked/tightened 06/29/24319 Site Assessment Clean;Dry;Intact 06/29/24319 Dressing Type Occlusive;Transparent 06/29/24319 Dressing Status Clean;Dry;Intact 06/29/24 032 Dressing Intervention Initial dressing 06/28/241999 Dressing Change Due (Non-Gauze) 07/05/24 06/28/241999 Urinary Catheter 06/28/24 Single lumen (Active) Catheter Status Patent 06/29/24319 Site Assessment Clean;Skin intact;Bleeding 06/29/24319 Collection Container Standard drainage bag/container 06/29/24319 Securement Method Securing device (Describe) 06/29/24319 Tamper Evident Seal Intact No 06/29/24 040 Reason for Continuing Strict I&O in critically ill patient 06/29/24 0320 Urine Color Other (Comment) 06/29/24 0320 Urine Appearance Cloudy 06/29/24 0320 Output (mL) 100 mL 06/29/24 0400 Arterial Line 06/29/24 Left Radial (Active) Line Status Infusing;Pulsatile blood flow;Blood return noted 06/29/24 0548 Line Interventions Leveled 06/29/24 0548 Waveform Appropriate 06/29/24 0548 Site Assessment Clean;Dry;Intact 06/29/24 0548 Dressing Type Occlusive;Transparent 06/29/24 0548 Dressing Status Clean;Dry;Intact 06/29/24 0548 Dressing Intervention Dressing changed 06/29/24 0548 Color/Movement/Sensation Capillary refill less than 3 sec 06/29/2448 Dressing Change Due (Non-Gauze) 07/06/24 06/29/24 0548 ACTIVE PROBLEM LIST: Fall from standing Left renal hematoma Hypotension Acute blood loss anemia Eliquis coagulopathy status post reversal with Kcentra CKD ASSESSMENT/PLAN: Neptali Loyola is a 78 y.o. male s/p fall, has left renal hematoma. 1. Neuro Hospital Meds: Sedation: None Analgesia: Fentanyl prn, Lidoderm, Ofirmev prn Others: memantine PMH: dementia Home meds: memantine 2. Pulmonary Breathing Support: on 2 L nasal cannula Continuous pulse oximetry Wean oxygen as able Encourage incentive spirometry and deep breathing Hospital Meds: Duoneb prn 3. Cardiovascular Cardiac Code Status: Full Code Paced rate, intermittent soft BP No pressor requirement Continuous cardiac monitoring Scheduled Meds: Amiodarone 200 mg BID, Lipitor PMH: CAD, hypertension, hyperlipidemia, previous SC, Afib, pacemaker ECHO in 2023 demonstrating EF 20% Home meds: Eliquis, Plavix, amiodarone, coreg 4. GI Diet: Adult diet NPO except medications Meds: Pepcid, Zofran, bowel reg - MiraLAX, Senokot PSH: none 5. Renal/Genitourinary Lab Results Component Value Date SODIUM 142 06/30/2024 SODIUM 139 06/29/2024 SODIUM 140 06/29/2024 CL 112 (H) 06/30/2024 CL 108 06/29/2024 CL 111 (H) 06/29/2024 K 4.2 06/30/2024 K 3.7 06/29/2024 K 3.6 06/29/2024 CO2 22 06/30/2024 CO2 23 06/29/2024 CO2 21 (L) 06/29/2024 Lab Results Component Value Date BUN 20 06/30/2024 BUN 17 06/29/2024 BUN 16 06/29/2024 CREATININE 1.39 (H) 06/30/2024 CREATININE 1.57 (H) 06/29/2024 CREATININE 1.46 (H) 06/29/2024 CALCIUM 7.4 (L) 06/30/2024 CALCIUM 7.6 (L) 06/29/2024 CALCIUM 6.9 (LL) 06/29/2024 MG 1.9 06/28/2024 PHOSPHORUS 3.5 06/30/2024 PHOSPHORUS 3.3 06/29/2024 Replace electrolytes PRN per ICU protocol Left renal hematoma - monitor hemoglobin and UOP Urology on board, appreciate recommendations Monitor creatinine, hemoglobin and UOP. Continue bedrest. Fluid Balance: IV Fluids: none UOP/24 H: 0.6 ml/kg/hr Net Fluid/24H: + 2.5 L Net Fluid Since Admission: + 2 L Strict monitoring of Ins and Outs PMH: CKD, nephrolithiasis Home meds: Lasix 40 mg prn, spironolactone nightly, Farxiga PSH: Left Lithotripsy with stent placement 06/19/24 6. Heme Labs: Lab Results Component Value Date HGB 10.4 (L) 06/30/2024 HGB 10.1 (L) 06/30/2024 HGB 8.8 (L) 06/29/2024 PLT 197 06/30/2024 PLT 193 06/29/2024 PLT 186 06/29/2024 Lab Results Component Value Date INR 1.6 (H) 06/29/2024 INR 1.7 (H) 06/28/2024 INR 3.1 (H) 06/28/2024 Type and Screen: A+ Blood Products Administered: 2 u PRBCs Received K centra on admission Received additional unit overnight for hypotension and symptomatic anemia Will continue to monitor Q6 H&H and transfuse PRN. Platelet function tests pending. Home meds: Plavix, Eliquis 7. ID Tmax/24H: 37.2 Labs: Lab Results Component Value Date WBC 10.1 06/30/2024 WBC 11.7 (H) 06/29/2024 WBC 10.6 06/29/2024 Micro: UC 06/29: NGTD BC 06/28: NGTD Hospital Meds: Antibiotics: None 8. Endocrine Lab Results Component Value Date GLU 67 06/30/2024 GLU 90 06/30/2024 GLU 69 06/30/2024 Goal Blood Glucose <180 mg/dL Hospital Meds: Add D5 if continued hypoglycemia Home Meds: Farxiga PMH: None 9. MS: Bedrest for now 10: Prophylaxis: DVT prophylaxis: SCD's while in bed, hold chemical prophylaxis Resp prophylaxis: Not indicated Stress ulcer prophylaxis: Not indicated 11. Lines: Jorgensen catheter Peripheral IV x2 Arterial line Disposition: Critical, remain in SICU Plan and management were discussed with the attending Dr. Ebonie Flores MD General Surgery Resident Cosigned by Wilberto Loomis MD at 06/30/2024 8:16 AM EST Associated attestation - Wilberto Loomis MD - 06/30/2024 8:16 AM EST Attending Attestation: I saw the patient. I participated and was physically present during the critical/archer portions of the service. I was directly involved in the management and treatment plan of the patient. I reviewed the resident's note. Additional Notes/Findings: <<<<<<<<<<<<<<<<<< Surgical Critical Care Attending >>>>>>>>>>>>>>>>>>>>>>>> I have seen and evaluated the patient, and have also reviewed the history above. I have repeated and performed the archer portions of the physical exam and concur with the resident's/advanced practice provider findings. I have reviewed all pertinent laboratory findings and imaging reports/films. We have discussed the patient's status and the appropriate treatment options/plan on the day of the encounter. I agree with the plan as noted above. Critical care time spent with the patient today = 34 minutes. 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 And expected for one kidney Did get RBC again this morning. No trali suspected yet. CT reviewed. Left kidey is shattered. Might need nephrectomy. I and O +2.6L/24 hours and +2.1L/ HS Wilberto Loomis MD, FACS [facility] General Surgeons Minimally Invasive Robotic Surgery Surgical Critical Care Trauma Office: [phone] Please feel free to call with questions at anytime. SICU Academic Critical Care PROGRESS NOTE Admission Date: 06/29/2024 1:19 AM Attending Physician: Ru Schwarz MD Date of 1945 Hospital Day: 0 day(s) Neptali Loyola is a 78 y.o. male who presented to [facility] ED via EMS as a Level 2 trauma after sustaining a fall from standing height. Patient was hypotensive upon arrival with SBP in the 80s and was started on IV fluids. Trauma level was upgraded to Level 1 given hypotension. Patient reports he was at his son's home and fell forward in the bathroom after getting dizzy and stumbling. He denies hitting anything, however is unsure about loss of consciousness. Unable to give full details. Denies any acute pain including no abdominal pain, no chest pain, no pain in the head or extremities. Denies any shortness of breath, nausea, vomiting or fevers. Patient is on Eliquis and Plavix for history of AFib and CAD. Patient has reportedly been taking his medications per his son. At the outside ED, CT abdomen pelvis showed possible hematoma or active bleed concerning for renal laceration. Patient was given Kcentra and 1 unit PRBC for hypotension with improvement of blood pressure. He was transferred to surgical ICU for close monitoring. Upon arrival is noted to be hemodynamically stable, alert and oriented x3, only complaining of moderate pain left back. Overnight Events: No acute events overnight. Resting comfortably on my examination. Physical Exam: Vital Signs: BP (!) 85/43 Pulse 63 Temp 36.9 C (98.4 F) (Oral) Resp 21 Ht 182.9 cm (6') Wt 97.5 kg (214 lb 15.2 oz) SpO2 97% BMI 29.15 kg/m General: Awake, alert and oriented x3, in no acute distress HENT: Head atraumatic, normocephalic, external ears and nose are normal Eyes: Conjunctivae clear, non-icteric, EOMI Pulmonary: Regular, non-labored respirations, without use of accessory muscles, no stridor Cardiovascular: Regular rate and rhythm, radial pulses 2+, non-edematous x4 extremities Abdomen: Soft, tender about left flank, non-distended Musculoskeletal: Range of motion grossly normal x4 extremities, no deformity x4 extremities Neurological: sensation grossly intact Skin: Warm, dry, without jaundice : sanguinous output from jorgensen catheter Intake/Output Summary (Last 24 hours) at 06/29/2024 0614 Last data filed at 06/29/2024 0400 Gross per 24 hour Intake -- Output 400 ml Net -400 ml O2 Device: None (Room air) Results from last 3 days Lab Units 06/29/2443906/29/2413606/28/24 1901 BUN mg/dL 17 16 20 CREATININE mg/dL 1.57* 1.46* 1.90* POTASSIUM mmol/L 3.7 3.6 3.8 CO2 mmol/L 23 21* 23 CHLORIDE mmol/L 108 111* 108 MAGNESIUM mg/dL -- -- 1.9 AST U/L -- 15 25 ALT U/L -- 9 16 ALK PHOS U/L -- 63 70 LIPASE U/L -- 8* -- Results from last 3 days Lab Units 06/29/2413606/28/24 1901 INR 1.6* 3.1* PROTIME sec 18.1* 34.3* Results from last 3 days Lab Units 06/29/2443906/29/2413606/28/24 21106/28/24 1901 WBC X10E9/L 11.7* 10.6 -- 13.8* HEMOGLOBIN g/dL 8.1* 6.9* 7.9* 8.6* HEMATOCRIT % 23.6* 20.6* 23.3* 25.7* PLATELETS X10E9/L 193 186 -- 252 MCV fL 93 94 -- 94 MCH pg 31.7 31.4 -- 31.4 MCHC g/dL 34.1 33.4 -- 33.6 RDW % 14.7 14.5 -- 15.0 EOS ABS AUTO X10E9/L 0.0 0.0 -- 0.0 Microbiology Results Procedure Component Value Units Date/Time Urine culture [[id number]] Resulted: 06/29/24319 Specimen: Urine Updated: 06/29/24330 Blood culture, peripheral #2 [[id number]] Collected: 06/28/241906 Specimen: Blood, Peripheral Draw Updated: 06/28/241913 Blood culture, peripheral #1 [[id number]] Collected: 06/28/241858 Specimen: Blood, Peripheral Draw Updated: 06/28/241913 SARS/FLU A+B/RSV by NAAT/Molecular (M4RT Collection Tube) [[id number]] Collected: 06/28/241809 Specimen: Nasopharynx Updated: 06/28/241946 FLU A PCR Negative FLU B PCR Negative RSV by PCR Negative SARS CoV 2 BY PCR Not Detected Glucose Results from last 7 days Lab Units 06/29/24 0601 06/29/24 0440 06/29/24 0137 06/28/24 1901 BEDSIDE GLUCOSE mg/dL 108* -- -- -- GLUCOSE mg/dL -- 111* 105* 137* Lines/Drains Peripheral IV 06/28/24 Posterior;Right Hand (Active) Line Status No blood return;Saline locked;Flushed;Alcohol sponge cap changed;Connections checked/tightened 06/29/24319 Site Assessment Clean;Dry;Intact 06/29/24319 Dressing Type Occlusive;Transparent 06/29/24319 Dressing Status Clean;Dry;Intact 06/29/24319 Specimen Obtained Yes 06/28/241804 Specimen Status Sent for analysis 06/28/241804 Amount Drawn (mL) 10 mL 06/28/241804 Peripheral IV 06/28/24 Left Antecubital (Active) Line Status Blood return noted;Flushed;Infusing;Connections checked/tightened 06/29/24 0320 Site Assessment Clean;Dry;Intact 06/29/24 0320 Dressing Type Occlusive;Transparent 06/29/24 0320 Dressing Status Clean;Dry;Intact 06/29/24 0320 Dressing Intervention Initial dressing 06/28/241999 Dressing Change Due (Non-Gauze) 07/05/24 06/28/241999 Urinary Catheter 06/28/24 Single lumen (Active) Catheter Status Patent 06/29/24 0320 Site Assessment Clean;Skin intact;Bleeding 06/29/24 032 Collection Container Standard drainage bag/container 06/29/24 0320 Securement Method Securing device (Describe) 06/29/24 032 Tamper Evident Seal Intact No 06/29/24 0400 Reason for Continuing Strict I&O in critically ill patient 06/29/24 032 Urine Color Other (Comment) 06/29/24319 Urine Appearance Cloudy 06/29/240 Output (mL) 100 mL 06/29/24 0400 Arterial Line 06/29/24 Left Radial (Active) Line Status Infusing;Pulsatile blood flow;Blood return noted 06/29/24 0548 Line Interventions Leveled 06/29/24 0548 Waveform Appropriate 06/29/24 0548 Site Assessment Clean;Dry;Intact 06/29/24 0548 Dressing Type Occlusive;Transparent 06/29/24 0548 Dressing Status Clean;Dry;Intact 06/29/24 0548 Dressing Intervention Dressing changed 06/29/24 0548 Color/Movement/Sensation Capillary refill less than 3 sec 06/29/24 0548 Dressing Change Due (Non-Gauze) 07/06/24 06/29/24 0548 ACTIVE PROBLEM LIST: Fall from standing Left renal hematoma Hypotension Acute blood loss anemia Eliquis coagulopathy status post reversal with Kcentra CKD ASSESSMENT/PLAN: Neptali Loyola is a 78 y.o. male s/p fall, has left renal hematoma. 1. Neuro Hospital Meds: Sedation: None RASS Goal -1 to 0 Analgesia: fentanyl 25mcg q1 PRN, Lidoderm, Ofirmev 2. Pulmonary Breathing Support: on RA Continuous pulse oximetry Hospital Meds: None Home Meds: None PMH: None PSH: None 3. Cardiovascular Cardiac Code Status: Full Code Continuous cardiac monitoring Scheduled Meds: None PRN Meds: None PMH: CAD, hypertension, hyperlipidemia, previous SC, AFib Home meds: Eliquis, Plavix 4. GI Diet: Adult diet NPO Meds: Pepcid, Zofran, bowel reg - MiraLAX, Senokot 5. Renal/Genitourinary Lab Results Component Value Date SODIUM 139 06/29/2024 SODIUM 140 06/29/2024 SODIUM 137 06/28/2024 CL 108 06/29/2024 CL 111 (H) 06/29/2024 CL 108 06/28/2024 K 3.7 06/29/2024 K 3.6 06/29/2024 K 3.8 06/28/2024 CO2 23 06/29/2024 CO2 21 (L) 06/29/2024 CO2 23 06/28/2024 Lab Results Component Value Date BUN 17 06/29/2024 BUN 16 06/29/2024 BUN 20 06/28/2024 CREATININE 1.57 (H) 06/29/2024 CREATININE 1.46 (H) 06/29/2024 CREATININE 1.90 (H) 06/28/2024 CALCIUM 7.6 (L) 06/29/2024 CALCIUM 6.9 (LL) 06/29/2024 CALCIUM 8.1 (L) 06/28/2024 MG 1.9 06/28/2024 PHOSPHORUS 3.3 06/29/2024 Replace electrolytes PRN per ICU protocol Renal hematoma Fluid Balance: IV Fluids: LR @ 100mL /hr UOP/24 H: 500mL Net Fluid/24H: -500mL Net Fluid Since Admission: -500mL Strict monitoring of Ins and Outs PMH: CKD, nephrolithiasis PSH: Left Lithotripsy with stent placement 06/19/24. 6. Heme Labs: Lab Results Component Value Date HGB 8.1 (L) 06/29/2024 HGB 6.9 (LL) 06/29/2024 HGB 7.9 (L) 06/28/2024 PLT 193 06/29/2024 PLT 186 06/29/2024 PLT 252 06/28/2024 Lab Results Component Value Date INR 1.6 (H) 06/29/2024 INR 3.1 (H) 06/28/2024 INR 1.2 (H) 02/22/2024 Type and Screen: A+ Blood Products Administered: 1u PRBCs (06/29) Will continue to monitor Q6 H&H and transfuse PRN. Platelet function tests pending. Home meds: Plavix, Eliquis 7. ID Tmax/24H: 37.2 Labs: Lab Results Component Value Date WBC 11.7 (H) 06/29/2024 WBC 10.6 06/29/2024 WBC 13.8 (H) 06/28/2024 Micro: UC 06/29: NGTD BC 06/28: NGTD Hospital Meds: Antibiotics: None 8. Endocrine Lab Results Component Value Date GLU 108 (H) 06/29/2024 GLU 111 (H) 06/29/2024 GLU 105 (H) 06/29/2024 Goal Blood Glucose <180 mg/dL Hospital Meds: Sliding scale Home Meds: None PMH: None Goal blood glucose <180 Insulin sliding scale as needed 9. MS: Bedrest for now. PT OT when cleared by trauma team. PMH: 10: Prophylaxis: DVT prophylaxis: SCD's while in bed, hold chemical prophylaxis. Resp prophylaxis: Not indicated Stress ulcer prophylaxis: Pepcid 11. Lines: Jorgensen catheter Peripheral IV Arterial line Disposition: Critical, SICU Plan and management were discussed with the attending Dr. Ebonie Schaffer MD SICU Resident, PGY-1 Cosigned by Wilberto Loomis MD at 06/29/2024 8:53 AM EST Associated attestation - Wilberto Loomis MD - 06/29/2024 8:53 AM EST Attending Attestation: I saw the patient. I participated and was physically present during the critical/archer portions of the service. I was directly involved in the management and treatment plan of the patient. I reviewed the resident's note. Additional Notes/Findings: <<<<<<<<<<<<<<<<<< Surgical Critical Care Attending >>>>>>>>>>>>>>>>>>>>>>>> I have seen and evaluated the patient, and have also reviewed the history above. I have repeated and performed the archer portions of the physical exam and concur with the resident's/advanced practice provider findings. I have reviewed all pertinent laboratory findings and imaging reports/films. We have discussed the patient's status and the appropriate treatment options/plan on the day of the encounter. I agree with the plan as noted above. Critical care time spent with the patient today = 34 minutes. Diagnoses: Atrial fibrillation senior care anticoagulation use Renal laceration Acute blood loss anemia Acute on chronic kidney disease Plan: Got Kcentra, needs Creatinine up but might have also chronic kidney disease. BNP elevated. Last unit RBC was this morning. Will watch for continued bleeding. CT reviewed. Left kidey is shattered. Might need nephrectomy. Wilberto Loomis MD, FACS [facility] General Surgeons Minimally Invasive Robotic Surgery Surgical Critical Care Trauma Office: [phone] Please feel free to call with questions at anytime. documented in this encounter [facility] 07-04-2024 Hospital course Narrative [facility] TRAUMA SURGERY-DISCHARGE SUMMARY DISCHARGE NOTE / SUMMARY Patient ID: Neptali Loyola : 1945 Acct: [id number] Patient's PCP: MIGUEL GARCIA, BENDING MACHINE OPERATOR-OSTOMY NURSE Admit Date: 06/29/2024 Discharge Date: 07/04/2024 Admitting Physician: Ru Schwarz MD Consults: Urology and SICU Discharge Diagnoses/Chief Complaint: fall Primary Problem Fall in home, initial encounter Patient Active Problem List Diagnosis Date Noted Fall in home, initial encounter 06/29/2024 Past Medical History: Diagnosis Date Cardiac arrest ([facility]) 02/2024 Coronary artery disease Dementia ([facility]) Fall in home, initial encounter 06/29/2024 Hemorrhoids Hyperlipidemia Hypertension Kidney stone Memory loss Myocardial infarction ([facility]) Urinary tract infection HOSPITAL COURSE SUMMARY: Neptali Loyola is an 78 y.o. White or male presented to [facility] ED via EMS as a level 2 trauma after sustaining a fall from standing height. Patient was hypotensive upon arrival with SBP in the 80s and was started on IV fluids. Trauma level was upgraded to level 1 given hypotension. Patient reports he was at his son's home and fell forward in the bathroom after getting dizzy and stumbling. He denies hitting anything, however is unsure about loss of consciousness. Unable to give full details. Denies any acute pain including no abdominal pain, no chest pain, no pain in the head or extremities. Denies any shortness of breath, nausea, vomiting or fevers. Patient is on Eliquis and Plavix for history of AFib and CAD. Patient has reportedly been taking his medications per his son. At the outside ED, CT abdomen pelvis showed possible hematoma or active bleed concerning for renal laceration. The patient was seen and examined on day of discharge and this discharge summary is in conjunction with any daily progress note from day of discharge. Left Renal Hematoma - recent lithotripsy and stent placement at [facility] -Consult to Urology - serial hgb, trend Cr -Continue bedrest; 07/02 ok to get OOB - 07/02 ok per urology to resume Eliquis - plavix resumed with hgb stable - jorgensen removed, voiding spontaneously -If pt becomes unstable, Urology recommends IR for embolization Hypotension Acute blood loss anemia -SICU admission -06/29 3 units PRBC -serial hgb with close hemodynamic monitoring - transfuse for hgb < 7 or hemodynamic instability - 07/02 hgb has been stable, ok to resume Eliquis, continue to monitor closely - plavix resumed 07/03, hgb stable Pulse: 60 Resp: 24 BP: 119/69 Temp: 36.6 C (97.8 F) Physical Exam Constitutional He is oriented to person, place, and time. Nursing note and vitals reviewed. Cardiovascular: Normal rate and regular rhythm. Pulses: intact distal pulses Heart Sounds: normal heart sounds. Pulmonary/Chest: Effort normal and breath sounds normal. Abdominal: He exhibits no distension. Soft. There is no abdominal tenderness. There is no guarding. Musculoskeletal: General: Normal range of motion. Neurological: He is alert and oriented to person, place, and time. He has normal strength. Motor: normal strength Nursing note and vitals reviewed. Genitourinary Genitourinary Comments: Jorgensen with hematuria All home medications restarted at time of discharge with exception of cefadroxil and nitrofurantoin. Treatments: * No surgery found * Discharged Condition: Stable DISCHARGE INSTRUCTIONS: Discharge Medications: Your medication list START taking these medications Instructions Last Dose Given Next Dose Due acetaminophen 500 mg tablet Commonly known as: TYLENOL EXTRA STRENGTH Take 2 tablets (1,000 mg total) by mouth every 6 (six) hours as needed for pain. lidocaine 5 % Commonly known as: LIDODERM Start taking on: July 05, [address] Place 1 patch on the skin in the morning. Remove & Discard patch within 12 hours or as directed by MD. CONTINUE taking these medications Instructions Last Dose Given Next Dose Due amiodarone 200 mg tablet Commonly known as: PACERONE apixaban 5 mg tablet Commonly known as: ELIQUIS atorvastatin 80 mg tablet Commonly known as: LIPITOR carvediloL 3.125 mg tablet Commonly known as: COREG clopidogreL 75 mg tablet Commonly known as: PLAVIX dapagliflozin propanediol 10 mg tablet Commonly known as: FARXIGA furosemide 40 mg tablet Commonly known as: LASIX ipratropium-albuteroL 0.5 mg-3 mg(2.5 mg base)/3 mL nebulizer Commonly known as: DUONEB memantine 21 mg capsule,sprinkle,ER 24hr Commonly known as: NAMENDA XR spironolactone 25 mg tablet Commonly known as: ALDACTONE STOP taking these medications cefaDROXil 500 mg capsule Commonly known as: DURICEF nitrofurantoin (macrocrystal-monohydrate) 100 mg capsule Commonly known as: MACROBID Where to Get Your Medications Information about where to get these medications is not yet available Ask your nurse or doctor about these medications acetaminophen 500 mg tablet lidocaine 5 % Additional Discharge Instructions: Follow up with PCP, follow up with urology Scheduled Outpatient Follow Up: No future appointments. Follow-up Information MIGUEL GARCIA APRN-LIONEL. Go on 07/08/2024. Specialty: Family Medicine Why: 3:00 pm Contact information: [address] [place] [address] Kelvin Langston MD Follow up. Specialty: Urology Why: Follow up for management of kidney stones Contact information: [address] Dept of Urology [facility] [address] Scheduled Appointments YOUR SCHEDULED APPOINTMENTS Please make note of this in your schedule as to not miss or call to reschedule. Thank you! MIGUEL GARCIA APRN-LIONEL PCP - General Family Medicine phone [phone] fax [phone] [place] [address] Next Steps: Go on 07/08/2024 Instructions: 3:00 pm Pt. should bring the following to appointment; Discharge paperwork Picture ID, Insurance card, co-pay, and all current medications in their bottles. Please provide a 24 hour notice for cancellation. Failure to do so will result in the practice declining to see pt. in the future. If you have insurance copay you must bring with you to the appointment. Please arrive about 15 minutes prior to appointment for check-in/registration. For NEW PATIENT APPOINTMENTS, please arrive 30 minutes early to complete new patient paperwork. For NEW patients, MD will not prescribe senior living pain medication. Time spent: 45 minutes SORAIDA MCGOVERN PA-C 07/04/24 12:17 PM Soraida Mcgovern PA-C 07/04/24 1217 [facility] Progress note Formatting of t his note might be different from the original. DISCHARGE PLANNING NOTE Case discussed in daily transition rounds and chart reviewed by CN. Barriers to discharge include no medical barriers Discharge Plan remains: [facility] aware of dc order today-transport ambulette pick out hand time is 4pm. HENS complete. CRF in dc packet and sent to [facility]. Patient aware of dc at 4p as well. CN will continue to follow and is available should any further needs arise. - Julisa Del Toro RN 07/04/24 11:25 AM [facility] Plan of care note Problem: Pain Goal: Patient goal is pain score less than 4, able to rest, and participant in treatment plan as appropriate Description: INTERVENTIONS: 1. Encourage patient or legal outbound telemarketing representative to report early pain and ask for pain medicine when needed 2. Assess pain using appropriate pain scale and include the scale used when documenting 3. Administer analgesics based on type and severity of pain and evaluate response within appropriate time frame 4. Implement non-pharmacological measures as appropriate and evaluate response 5. Consider cultural and social influences on pain and pain management 6. Notify LIP if interventions ineffective or patient reports new pain 7. Monitor vital signs including pulse ox, end-tidal CO2 based on pain intervention 8. Reassess pain per policy 9. Teach patient or legal outbound telemarketing representative interventions for comforting Outcome: Progressing Note: Evaluation of progress towards goal: pt not complaining of pain during shift. PRN tylenol available Problem: Safety Goal: Patient will be injury free during hospitalization Description: INTERVENTIONS: 1. Assess patient's risk for falls and implement fall prevention plan of care per policy 2. Provide and maintain a safe environment 3. Proper use of double Identifiers 4. Medication administration using the 5 rights 5. Hand hygiene 6. Specimens are labeled at the bedside 7. Instruct patient/ patient outbound telemarketing representative about use of safety devices 8. Include patient/ patient outbound telemarketing representative in decisions related to safety Outcome: Progressing Note: Evaluation of progress towards goal: Pt will remain free from injury during shift. Call light within reach, hourly rounding being completed, RN next to pt's room Problem: Infection Goal: Absence of infection during hospitalization Description: INTERVENTIONS 1. Assess and monitor for signs and symptoms of infection. 2. Monitor lab/diagnostic results. 3. Monitor all insertion sites i.e., indwelling lines, tubes and drains. 4. Monitor endotracheal (as able) and nasal secretions for changes in amount and color. 5. Administer medications as ordered. 6. Instruct and encourage patient and family to use good hand hygiene technique. 7. Identify and instruct patient/patient outbound telemarketing representative in use of appropriate isolation precautions for identified infection/symptoms. 8. Provide and discuss with patient/patient outbound telemarketing representative on educational MDRO sheet. 9. Encourage and monitor nutritional status daily and consult bariatric nurse if indicated. 10. Implement neutropenic guidelines as needed. Outcome: Progressing Note: Evaluation of progress towards goal: Pt is afebrile and will remain free from signs of infection during shift. Labs and PIV insertion site being monitored Problem: Knowledge Deficit Goal: Patient/patient outbound telemarketing representative demonstrates understanding of disease process, treatment plan, medications, and discharge instructions Description: INTERVENTIONS 1. Complete learning assessment and assess knowledge base 2. Provide teaching at level of understanding 3. Provide teaching via preferred learning method(s) Outcome: Progressing Note: Evaluation of progress towards goal: Pt updated on plan of care for shift and educated on medications. Pt verbalized understanding Problem: Discharge Planning Goal: Discharge to post-acute care, other facility, or home with appropriate resources Description: Patient's goal is: INTERVENTIONS 1. Conduct assessment to determine patient/family and health care team treatment goals, and need for post-acute services based on payer coverage, community resources, and patient preferences, and barriers to discharge 2. Coordinate with Social work, Care Navigation, and Utilization Review to arrange appropriate level of services according to patient's needs based on patient preference and payer coverage in collaboration with the physician and health care team 3. Address psychosocial, clinical, and financial barriers to discharge as identified in assessment in conjunction with the patient/family and health care team 4. Consult appropriate ancillary services (i.e.. PT/OT/ST, etc) as needed 5. Communicate with and update the patient/family, physician, and health care team regarding progress on the discharge plan 6. Identify discharge learning needs (meds, wound care, etc). 7. Arrange for needed discharge transportation as appropriate Outcome: Progressing Note: Evaluation of progress towards goal: Discharge planning in process. Plan is [place] Problem: Potential for Compromised Skin Integrity Goal: Skin integrity is maintained or improved Description: Patient's goal is: INTERVENTIONS 1. Perform initial skin assessment on admission and as needed 2. Turn patient every 2 hours and PRN 3. Relieve pressure to bony prominences 4. Avoid shearing 5. Keep skin clean and dry 6. Alternate a full bath with partial baths for elderly 7. Apply lotion/moisturizer on skin 8. Monitor patient's hygiene practices 9. Float heels 10. Collaborate with interdisciplinary team and initiate plans and interventions as needed Outcome: Progressing Note: Evaluation of progress towards goal: pt's skin assessed during shift. No new signs of breakdown Goal: Patient's nutritional intake is adequate Description: Patient's goal is: INTERVENTIONS 1. Assess and monitor food intake and supplements, patient food preferences, nausea, vomiting, labs, oral cavity (gums, teeth, tongue, mucosa), proper denture fit, and cultural beliefs 2. Monitor for signs of hypoglycemia and hyperglycemia 3. Collaborate with interdisciplinary team and initiate plan and interventions as ordered 4. Monitor patient's weight 5. Assist patient with meals/food selection 6. Assist patient with eating 7. Allow adequate time for meals 8. Provide pleasant environment during mealtime 9. Increase social contact during mealtimes 10. Plan activities to conserve energy 11. Encourage/perform oral hygiene as appropriate 12. Encourage patient to take dietary supplement as ordered 13. Collaborate with clinical bariatric nurse 14. Include patient/ patient's outbound telemarketing representative in decisions related to nutrition Outcome: Progressing Note: Evaluation of progress towards goal: pt is consuming an adequate amt of meals Problem: Moderate - High Risk Fall Score Description: Issa Fall Score of =/> 25 or indicated by [facility] Assessment Goal: Patient should be free from fall Description: Interventions: 1. [place] to environment 2. Hourly rounds addressing the 4 P's (Pain, Positioning, Possessions, Potty) 3. Clear area of hazards (spills, clutter, electrical cords, unnecessary equipment) 4. Place equipment (bed & TV controls, call light, phone, urinal) within reach 5. Encourage patient to wear glasses and hearing aides as appropriate 6. Maintain bed in lowest position 7. Lock wheels on bed/wheelchair 8. Provide adequate lighting, including night light 9. Assess need for additional bedding, food/fluids, pain med's prior to sleep/routinely 10. Provide gripper slippers or personal non-skid footwear 11. Teach patient and patient outbound telemarketing representative to maintain environment for safety and engage in all aspects of fall prevention program 12. Remind patient to call for help before getting out of bed 13. Initiate bed/chair/exit alarms supportive devices as appropriate, (chair wedge, no-skid floor mat, raised edge mattress, hip protectors) 14. Locate patient bed assignment for optimal visualization 15. Evaluate and identify Safe Patient Handling Equipment needs 16. Provide supervision when out of bed or chair 17. Utilize gait belt as needed to assist with ambulation 18. Place adaptive equipment (cane, walker) within reach 19. Request patient outbound telemarketing representative bring adaptive equipment/mobility aids from home or obtain and provide as needed 20. Consult pharmacy regarding effects of med's affecting mobility, cognition, and alternatives 21. Obtain physician order for PT if risk factors associated with mobility are present 22. Obtain physician order for OT as appropriate 23. Utilize diversional activities 24. Educate patient and patient outbound telemarketing representative how to maintain a safe environment during visitation times (notify nurse prior to leaving bedside) 25. Consider appropriateness of medical or non-certified medical coding specialist 26. Set up voiding schedule as appropriate (every 2 hours) Outcome: Progressing Note: Evaluation of progress towards goal: Pt will remain free from falls during shift. Call light in reach, bed in lowest position, bed and chair wheels locked, 2/4 side rails up, nonslip socks on, overbed table and personal belongings within reach, hourly rounding being completed, RN next to [facility]'s [facility] Progress note Formatting of t his note might be different from the original. DISCHARGE PLANNING NOTE 4:30pm Rescheduled to 4pm 2.20.25 per SW request. [facility] transport via PT[facility] confirmed in [facility] to [place] 07.04.24 at 12:00pm [facility] 07-03-2024 Progress note Formatting of t his note might be different from the original. DISCHARGE PLANNING NOTE Prior Auth approved for admission to : [facility]/ [facility], [place], [place] (P# ; F# ) Approval # [id number] Valid for Dates: 07/03/2024-07/09/2024 [facility] [employer] [facility] 07-03-2024 Plan of care note Problem: Pain Goal: Patient goal is pain score less than 4, able to rest, and participant in treatment plan as appropriate Description: INTERVENTIONS: 1. Encourage patient or legal outbound telemarketing representative to report early pain and ask for pain medicine when needed 2. Assess pain using appropriate pain scale and include the scale used when documenting 3. Administer analgesics based on type and severity of pain and evaluate response within appropriate time frame 4. Implement non-pharmacological measures as appropriate and evaluate response 5. Consider cultural and social influences on pain and pain management 6. Notify LIP if interventions ineffective or patient reports new pain 7. Monitor vital signs including pulse ox, end-tidal CO2 based on pain intervention 8. Reassess pain per policy 9. Teach patient or legal outbound telemarketing representative interventions for comforting Outcome: Adequate for Discharge Note: Evaluation of progress towards goal: patient rates pain 0/10, during shift, patient vital signs and pain are assessed and charted frequently, will continue to monitor during shift Problem: Safety Goal: Patient will be injury free during hospitalization Description: INTERVENTIONS: 1. Assess patient's risk for falls and implement fall prevention plan of care per policy 2. Provide and maintain a safe environment 3. Proper use of double Identifiers 4. Medication administration using the 5 rights 5. Hand hygiene 6. Specimens are labeled at the bedside 7. Instruct patient/ patient outbound telemarketing representative about use of safety devices 8. Include patient/ patient outbound telemarketing representative in decisions related to safety Outcome: Adequate for Discharge Note: Evaluation of progress towards goal: Patient safety maintained during shift with use of 5 rights, patient and staff using hygiene, patient environment free of harm and debrie. Will continue to monitor during shift. Problem: Knowledge Deficit Goal: Patient/patient outbound telemarketing representative demonstrates understanding of disease process, treatment plan, medications, and discharge instructions Description: INTERVENTIONS 1. Complete learning assessment and assess knowledge base 2. Provide teaching at level of understanding 3. Provide teaching via preferred learning method(s) Outcome: Progressing Note: Evaluation of progress towards goal: Patient updated on POC he verbalizes understanding and voices no concerns at this time. Will continue to update and assess patient throughout shift for needs. Problem: Potential for Compromised Skin Integrity Goal: Skin integrity is maintained or improved Description: Patient's goal is: INTERVENTIONS 1. Perform initial skin assessment on admission and as needed 2. Turn patient every 2 hours and PRN 3. Relieve pressure to bony prominences 4. Avoid shearing 5. Keep skin clean and dry 6. Alternate a full bath with partial baths for elderly 7. Apply lotion/moisturizer on skin 8. Monitor patient's hygiene practices 9. Float heels 10. Collaborate with interdisciplinary team and initiate plans and interventions as needed Outcome: Not Progressing Note: Evaluation of progress towards goal: patient skin assessed and charted, patient repositioned frequently during shift, patient skin kept warm and dry and barrier cream applied to buttock during shift, will continue to monitor Problem: Urinary Incontinence Goal: Perineal skin integrity is maintained or improved Description: INTERVENTIONS 1. Assess genitourinary system, perineal skin, labs (urinalysis), and history of incontinence to include past management, aggravating, and alleviating factors 2. Keep skin clean and dry 3. Apply skin protectant 4. Develop skin care regimen 5. Provide privacy when changing patients incontinence device to maintain their dignity 6. Consider placing an indwelling catheter 7. Collaborate with interdisciplinary team and initiate plans and interventions as needed Outcome: Progressing Note: Evaluation of progress towards goal: Patient repositioned during shift, patient skin assessed and charted patient skin kept warm and dry, barrier cream used as needed during shift, patient continues use of jorgensen, will continue to monitor patient's skin during shift. Problem: Moderate - High Risk Fall Score Description: Issa Fall Score of =/> 25 or [facility] Goal: Patient should be free from fall Description: Interventions: 1. [place] to environment 2. Hourly rounds addressing the 4 P's (Pain, Positioning, Possessions, Potty) 3. Clear area of hazards (spills, clutter, electrical cords, unnecessary equipment) 4. Place equipment (bed & TV controls, call light, phone, urinal) within reach 5. Encourage patient to wear glasses and hearing aides as appropriate 6. Maintain bed in lowest position 7. Lock wheels on bed/wheelchair 8. Provide adequate lighting, including night light 9. Assess need for additional bedding, food/fluids, pain med's prior to sleep/routinely 10. Provide gripper slippers or personal non-skid footwear 11. Teach patient and patient outbound telemarketing representative to maintain environment for safety and engage in all aspects of fall prevention program 12. Remind patient to call for help before getting out of bed 13. Initiate bed/chair/exit alarms supportive devices as appropriate, (chair wedge, no-skid floor mat, raised edge mattress, hip protectors) 14. Locate patient bed assignment for optimal visualization 15. Evaluate and identify Safe Patient Handling Equipment needs 16. Provide supervision when out of bed or chair 17. Utilize gait belt as needed to assist with ambulation 18. Place adaptive equipment (cane, walker) within reach 19. Request patient outbound telemarketing representative bring adaptive equipment/mobility aids from home or obtain and provide as needed 20. Consult pharmacy regarding effects of med's affecting mobility, cognition, and alternatives 21. Obtain physician order for PT if risk factors associated with mobility are present 22. Obtain physician order for OT as appropriate 23. Utilize diversional activities 24. Educate patient and patient outbound telemarketing representative how to maintain a safe environment during visitation times (notify nurse prior to leaving bedside) 25. Consider appropriateness of medical or non-certified medical coding specialist 26. Set up voiding schedule as appropriate (every 2 hours) Outcome: Progressing Note: Evaluation of progress towards goal: Patient remains free from falls during shift, patient transfers with walker and gait belt minimal assist once upright, steady gait, 5 feet, patient continues to collaborate with PT/OT for therapy needs. patients room is free of clutter and debrie, patients bed remains locked and in lowest position, hourly rounding continues, patient uses call light to notify staff of needs, appropriate safe patient handling used during shift. Will continue to monitor during shift. [facility] 07-03-2024 Progress note Formatting of t his note might be different from the original. DISCHARGE PLANNING NOTE Referral sent to multiple facilities or agencies due to patient is without preference. [facility] 07-03-2024 Progress note Formatting of t his note might be different from the original. DISCHARGE PLANNING NOTE ADILENE called patient Ashok barroso and left a voicemail asking for a return call. ADILENE [facility]ic[facility]. ADILENE asked for a return call with additional SNF choices. - [facility] 07/03/24 8:40 AM Patient discussed today in daily transition rounds. Current Discharge Plan; SNF. Current Barriers: SNF choice, acceptance and erik fernandez. ADILENE received return call from son. Patient ashok barroso is okay with blanket referral being sent and following up with him as to who can accept. - [facility] 07/03/24 10:47 AM ADILENE left voicemail for ashok barroso asking for a return call to review accepting SNF. ADILENE called Ashok barroso again and left voicemail asking for return call. - [facility] 07/03/24 2:49 PM SW received return call from sonashok. Ashok would like auth to be started with [facility]. SW tasked [facility] to start auth. - [facility] 07/03/24 3:03 PM SW informed patient of DC tomorrow. SW also called patient son of discharge tomorrow at 4pm. SW tasked [facility] to set up transport. - [facility] 07/03/24 3:53 PM [facility] 07-02-2024 Plan of care note Problem: Pain Goal: Patient goal is pain score less than 4, able to rest, and participant in treatment plan as appropriate Description: INTERVENTIONS: 1. Encourage patient or legal outbound telemarketing representative to report early pain and ask for pain medicine when needed 2. Assess pain using appropriate pain scale and include the scale used when documenting 3. Administer analgesics based on type and severity of pain and evaluate response within appropriate time frame 4. Implement non-pharmacological measures as appropriate and evaluate response 5. Consider cultural and social influences on pain and pain management 6. Notify LIP if interventions ineffective or patient reports new pain 7. Monitor vital signs including pulse ox, end-tidal CO2 based on pain intervention 8. Reassess pain per policy 9. Teach patient or legal outbound telemarketing representative interventions for comforting Outcome: Progressing Note: Evaluation of progress towards goal: patient does not complain of pain at this mark, will continue to monitor during this shift Problem: Safety Goal: Patient will be injury free during hospitalization Description: INTERVENTIONS: 1. Assess patient's risk for falls and implement fall prevention plan of care per policy 2. Provide and maintain a safe environment 3. Proper use of double Identifiers 4. Medication administration using the 5 rights 5. Hand hygiene 6. Specimens are labeled at the bedside 7. Instruct patient/ patient outbound telemarketing representative about use of safety devices 8. Include patient/ patient outbound telemarketing representative in decisions related to safety Outcome: Progressing Note: Evaluation of progress towards goal: patient remains free from falls during this shift, staff using a walker with patient for ambulation, bed alarm is on Problem: Infection Goal: Absence of infection during hospitalization Description: INTERVENTIONS 1. Assess and monitor for signs and symptoms of infection. 2. Monitor lab/diagnostic results. 3. Monitor all insertion sites i.e., indwelling lines, tubes and drains. 4. Monitor endotracheal (as able) and nasal secretions for changes in amount and color. 5. Administer medications as ordered. 6. Instruct and encourage patient and family to use good hand hygiene technique. 7. Identify and instruct patient/patient outbound telemarketing representative in use of appropriate isolation precautions for identified infection/symptoms. 8. Provide and discuss with patient/patient outbound telemarketing representative on educational MDRO sheet. 9. Encourage and monitor nutritional status daily and consult bariatric nurse if indicated. 10. Implement neutropenic guidelines as needed. Outcome: Progressing Note: Evaluation of progress towards goal: patient remains afebrile, will continue to monitor labs Problem: Knowledge Deficit Goal: Patient/patient outbound telemarketing representative demonstrates understanding of disease process, treatment plan, medications, and discharge instructions Description: INTERVENTIONS 1. Complete learning assessment and assess knowledge base 2. Provide teaching at level of understanding 3. Provide teaching via preferred learning method(s) Outcome: Progressing Note: Evaluation of progress towards goal: patient verbalizes understanding the use of call light and jorgensen, will continue to educate if needed Problem: Discharge Planning Goal: Discharge to post-acute care, other facility, or home with appropriate resources Description: Patient's goal is: INTERVENTIONS 1. Conduct assessment to determine patient/family and health care team treatment goals, and need for post-acute services based on payer coverage, community resources, and patient preferences, and barriers to discharge 2. Coordinate with Social work, Care Navigation, and Utilization Review to arrange appropriate level of services according to patient's needs based on patient preference and payer coverage in collaboration with the physician and health care team 3. Address psychosocial, clinical, and financial barriers to discharge as identified in assessment in conjunction with the patient/family and health care team 4. Consult appropriate ancillary services (i.e.. PT/OT/ST, etc) as needed 5. Communicate with and update the patient/family, physician, and health care team regarding progress on the discharge plan 6. Identify discharge learning needs (meds, wound care, etc). 7. Arrange for needed discharge transportation as appropriate Outcome: Progressing Note: Evaluation of progress towards goal: planning continues Problem: Potential for Compromised Skin Integrity Goal: Skin integrity is maintained or improved Description: Patient's goal is: INTERVENTIONS 1. Perform initial skin assessment on admission and as needed 2. Turn patient every 2 hours and PRN 3. Relieve pressure to bony prominences 4. Avoid shearing 5. Keep skin clean and dry 6. Alternate a full bath with partial baths for elderly 7. Apply lotion/moisturizer on skin 8. Monitor patient's hygiene practices 9. Float heels 10. Collaborate with interdisciplinary team and initiate plans and interventions as needed Outcome: Progressing Note: Evaluation of progress towards goal: skin remains intact, no mew breakdowns or skin tears during this shift Goal: Patient's nutritional intake is adequate Description: Patient's goal is: INTERVENTIONS 1. Assess and monitor food intake and supplements, patient food preferences, nausea, vomiting, labs, oral cavity (gums, teeth, tongue, mucosa), proper denture fit, and cultural beliefs 2. Monitor for signs of hypoglycemia and hyperglycemia 3. Collaborate with interdisciplinary team and initiate plan and interventions as ordered 4. Monitor patient's weight 5. Assist patient with meals/food selection 6. Assist patient with eating 7. Allow adequate time for meals 8. Provide pleasant environment during mealtime 9. Increase social contact during mealtimes 10. Plan activities to conserve energy 11. Encourage/perform oral hygiene as appropriate 12. Encourage patient to take dietary supplement as ordered 13. Collaborate with clinical bariatric nurse 14. Include patient/ patient's outbound telemarketing representative in decisions related to nutrition Outcome: Progressing Note: Evaluation of progress towards goal: patient is eating 75% or more of meals Problem: Urinary Incontinence Goal: Perineal skin integrity is maintained or improved Description: INTERVENTIONS 1. Assess genitourinary system, perineal skin, labs (urinalysis), and history of incontinence to include past management, aggravating, and alleviating factors 2. Keep skin clean and dry 3. Apply skin protectant 4. Develop skin care regimen 5. Provide privacy when changing patients incontinence device to maintain their dignity 6. Consider placing an indwelling catheter 7. Collaborate with interdisciplinary team and initiate plans and interventions as needed Outcome: Progressing Note: Evaluation of progress towards goal: jorgensen remains in place, skin remains intact Problem: Moderate - High Risk Fall Score Description: Issa Fall Score of =/> 25 or indicated by [facility] Assessment Goal: Patient should be free from fall Description: Interventions: 1. [place] to environment 2. Hourly rounds addressing the 4 P's (Pain, Positioning, Possessions, Potty) 3. Clear area of hazards (spills, clutter, electrical cords, unnecessary equipment) 4. Place equipment (bed & TV controls, call light, phone, urinal) within reach 5. Encourage patient to wear glasses and hearing aides as appropriate 6. Maintain bed in lowest position 7. Lock wheels on bed/wheelchair 8. Provide adequate lighting, including night light 9. Assess need for additional bedding, food/fluids, pain med's prior to sleep/routinely 10. Provide gripper slippers or personal non-skid footwear 11. Teach patient and patient outbound telemarketing representative to maintain environment for safety and engage in all aspects of fall prevention program 12. Remind patient to call for help before getting out of bed 13. Initiate bed/chair/exit alarms supportive devices as appropriate, (chair wedge, no-skid floor mat, raised edge mattress, hip protectors) 14. Locate patient bed assignment for optimal visualization 15. Evaluate and identify Safe Patient Handling Equipment needs 16. Provide supervision when out of bed or chair 17. Utilize gait belt as needed to assist with ambulation 18. Place adaptive equipment (cane, walker) within reach 19. Request patient outbound telemarketing representative bring adaptive equipment/mobility aids from home or obtain and provide as needed 20. Consult pharmacy regarding effects of med's affecting mobility, cognition, and alternatives 21. Obtain physician order for PT if risk factors associated with mobility are present 22. Obtain physician order for OT as appropriate 23. Utilize diversional activities 24. Educate patient and patient outbound telemarketing representative how to maintain a safe environment during visitation times (notify nurse prior to leaving bedside) 25. Consider appropriateness of medical or non-certified medical coding specialist 26. Set up voiding schedule as appropriate (every 2 hours) Outcome: Progressing Note: Evaluation of progress towards goal: patient remains free from falls [facility] [employer] 07-02-2024 Progress note Formatting of t his note is different from the original. Physical Therapy Evaluation Discharge Recommendations PT Recommendations: Long-Term Facility SNF/ECF Comments: Recommend SNF as pt requires physical assistance for safe func mobility, only amb 30' with RW and min assistance, unable to care for self and requires more physical assistance than what family can safely provide. 6 Clicks: Basic Mobility Turning from your back to your side while in a flat bed without using bed rails?: A lot Moving from lying on your back to sitting on side of flat bed without using bed rails?: A lot Moving to and from bed to a chair (including w/c)?: A little Standing up from a chair using your arms (e.g. w/c or bedside chair)?: A lot To walk in hospital room?: A little Climbing 3-5 steps with a railing?: Total Scoring 6 Clicks: Basic Mobility Raw Score: 13 [facility] G Code Modifier: CK Therapy Plan Need for skilled Physical Therapy to address deficits in functional mobility due to a status decline resulting from Dx of L renal hematoma, acute hypotension, blood loss anemia. Pt adm on 06/29/24 s/p fall from standing; pt was hypotensive upon arrival. ON 06/29, pt rec'd 3 units of blood. Urology consulted for renal hematoma: pt with + hematuria. No acute interventions, keep jorgensen catheter. Pt had a recent lithotripsy and stent placed on 06/19/24 at [facility]. Past Medical History: Diagnosis Date Cardiac arrest ([facility]) 02/2024 Coronary artery disease Dementia ([facility]) Fall in home, initial encounter 06/29/2024 Hemorrhoids Hyperlipidemia Hypertension Kidney stone Memory loss Myocardial infarction ([facility]) Urinary tract infection History reviewed. No pertinent surgical history. PT Treatment/Interventions: Functional transfer training, LE strengthening/ROM, UE strengthening/ROM, Endurance training, Patient/family training, Equipment eval/education, Balance, Stair training, Bed mobility, Gait training, Functional activities, Neuromuscular reeducation (ex prog) PT Frequency: 4-5days/week (2 person assist) PT Duration: until goals met Patient Response to Treatment: (Fair tolerance, limited by fatigue.) Assessment Patient Assessment Therapy Problem List: Decreased balance, Decreased endurance, Decreased mobility (dec ex danie) Patient Response to Treatment: (Fair tolerance, limited by fatigue.) Mood/Affect: Appropriate for circumstances Rehab Prognosis: Good, With continued PT status post acute discharge Visit RN Communication: Yes Medical Record Reviewed: Yes PT Type of Visit: Evaluation Reason For Medical Deferral: Off unit Off Unit: Testing Precautions Activity: early mobility: yes/pass; BLE venous duplex testing pending/ ok for PT/OT--OOB. Equipment: gait belt, RW Telemetry/Spent Grain Dryer: Yes Oxygen Order : SpO2 90% or higher with 0-5L Oxygen Used: 3L Other: high fall risk (per Kaylah RN, no chair alarm needed), dementia, jorgensen catheter Pain Assessment Pain Assessment: No/denies pain Home Living Type of Home: House Home Layout: Two level, Able to live on main level with bedroom/bathroom Stairs to Enter: 2 Hand Rails: Left Bathroom Shower/Tub: Walk-in shower Bathroom Toilet: Standard (support near toilet) Bathroom Equipment: Grab bars in shower, Hand-held shower Home Equipment: Standard walker, Cane, Home oxygen Other : Pt has a manual recliner. Pt sleeps on a couch and has home O2 but usually doesn't wear it. Prior Function Lives With: Son (and DIL) Receives Help From: Family (Son and DIL both work) Level of Mobility: Needs assistance with ADLs or functional transfers or gait Transfers: (son assists pt in/out of shower) Mobility: Independent Toileting: Independent Bath: Min assist Dressing: Min assist Grooming: Independent Feeding: Independent Homemaking Assistance: Needs assistance Driving: Total assist Other: Family completes all IADLs Vocational: Retired ADL / IADL Hand Dominance: Right Hearing / Speech / Vision Hearing: Hard of hearing/hearing concerns (mild) Speech: Within Functional Limits Current Vision: Does not wear glasses Other: Pt kept eyes closed through majority of tx Cognition Overall Cognitive Status: Within Functional Limits Sensation Overall Sensation Status: (denies n+t) Bed Mobility Supine to Sit: Mod assist, Left (x2 with HOB elevated) Other: mod assist to scoot to EOB Transfers Sit to Stand: Mod assist, Verbal cues (x2 from elevated bed height; req'd 2 attempts d/t weakness) Stand to Sit: Mod assist, Verbal cues Other: Cues for safe hand placement/tech Gait Pattern: Decreased karime Gait Assistance: Min assist Assistive Device: Rolling walker Gait Distance: 30' Limiting Factors to Gait: Fatigue Other: Cues for safe use of RW Balance Balance Evaluation: Exceptions to Functional Limits Sitting Balance: Static: Good (minus) Sitting Balance: Dynamic: Fair Standing Balance: Static: Fair (minus) Standing Balance: Dynamic: Poor Other: amb with RW RUE Assessment: (see OT eval) LUE Assessment: (see OT eval) RLE Assessment: Exceptions to WFL (generalized deconditioning) LLE Assessment: Exceptions to WFL (generalized deconditioning) Activity Tolerance Other: Fair tolerance, limited by fatigue. Plan Physical Therapy Care Plan Physical Therapy Care Plan (Active) Template: PT - Physical Therapy Problem: Activity Tolerance Dates: Start: 07/02/24 Disciplines: PT Goal: Tolerate 30 minutes of activity WITH rest breaks Dates: Start: 07/02/24 Expected End: 07/25/24 Description: Goal Description: Pt will tolerate bilat UE/LE ex's x 10-20 reps. Disciplines: PT Problem: Bed Mobility Dates: Start: 07/02/24 Disciplines: PT Goal: Other bed mobility (Customize) Dates: Start: 07/02/24 Expected End: 07/25/24 Description: Goal Description: Pt will transfer supine<-->sidelying<-->sit with HOB elevated as needed and mod ind. Disciplines: PT Problem: Gait Dates: Start: 07/02/24 Disciplines: PT Goal: Other gait goal (Customize) Dates: Start: 07/02/24 Expected End: 07/25/24 Description: Goal Description: Pt will amb 100' with RW and SBA. Disciplines: PT Problem: Stairs/Curb Dates: Start: 07/02/24 Disciplines: PT Goal: Other stairs/curb goal (Customize) Dates: Start: 07/02/24 Expected End: 07/25/24 Description: Goal Description: Pt will amb up/down 2 steps with L handrail and CG. Disciplines: PT Problem: Standing Balance Dates: Start: 07/02/24 Disciplines: PT Goal: Other sitting and standing balance goal (customize) Dates: Start: 07/02/24 Expected End: 07/25/24 Description: Goal Description: Pt will demo good balance amb with RW. Disciplines: PT Problem: Transfers Dates: Start: 07/02/24 Disciplines: PT Goal: Patient will perform transfers with Modified [place] Dates: Start: 07/02/24 Expected End: 07/25/24 Description: Goal Description: Disciplines: PT Physical Therapy Care Plan (Resolved) There are no resolved problems. Principal Problem: Fall in home, initial encounter [facility] [employer] 07-02-2024 Progress note Formatting of t his note is different from the original. Occupational Therapy Evaluation Discharge Recommendations OT Recommendations : Long-Term Facility SNF/ECF Comments: recommend SNF at discharge for continued skilled therapy services to increase strength, endurance and balance for safe functional return home w/ ADLs, transfers and functional mobility 6 Clicks: Daily Activity Putting on and taking off regular lower body clothing?: A lot Bathing (including washing, rinsing, drying)?: A lot Toileting, which includes using toilet, bedpan or urinal?: Total Putting on and taking off regular upper body clothing?: A lot Taking care of personal grooming such as brushing teeth?: A little Eating meals?: A little Scoring Daily Activity Raw Score: 13 [facility] G Code Modifier: CL Pt admit 06/29/24 after fall from standing. Pt hypotensive on arrival s/p 3 units of PRBC. Dx: L renal hematoma, hypotension, acute blood loss anemia Urology consulted. Pt with hematuria, maintain jorgensen catheter. Pt with h/o lithotripsy with stent placement at [facility] on 06/19/24 Past Medical History: Diagnosis Date Cardiac arrest ([facility]) 02/2024 Coronary artery disease Dementia ([facility]) Fall in home, initial encounter 06/29/2024 Hemorrhoids Hyperlipidemia Hypertension Kidney stone Memory loss Myocardial infarction ([facility]) Urinary tract infection History reviewed. No pertinent surgical history. Therapy Plan Need for skilled Occupational Therapy to address deficits in ADL independence and functional mobility due to a status decline resulting from decreased endurance, strength and balance d/t fall. OT Treatment/Interventions: ADL retraining, Functional transfer training, UE strengthening/ROM, Endurance training, Patient/family training, Equipment eval/education, Balance, Bed mobility, Gait training, Compensatory technique education, Functional activities OT Frequency: 4-5days/week (2 person assist) OT Duration: length of stay Assessment Patient Assessment Therapy Problem List: Decreased ADL status, Decreased balance, Decreased endurance, Decreased mobility, Decreased safe judgement during ADL, Decreased self-care trans, Decreased UE strength Patient Response to Treatment: Tolerated evaluation without adverse reaction Mood/Affect: Appropriate for circumstances Rehab Prognosis: Good, With continued OT status post acute discharge Visit RN Communication: Yes Medical Record Reviewed: Yes OT Type of Visit: Evaluation Reason For Medical Deferral: Off unit Off Unit: Testing Activity Limitations: Strict bedrest Precautions Activity: early mobility guideline:yes, pass Equipment: gait belt, RW Telemetry/Spent Grain Dryer: Yes Oxygen Order : spo2 90% or higher with 0-5L Oxygen Used: 3L Other: high fall risk (per RN no chair alarm needed), jorgensen catheter Pain Assessment Pain Assessment: No/denies pain Home Living Type of Home: House Home Layout: Two level, Able to live on main level with bedroom/bathroom Stairs to Enter: 2 Hand Rails: Left Bathroom Shower/Tub: Walk-in shower Bathroom Toilet: Standard Bathroom Equipment: Grab bars in shower, Hand-held shower (pt believes grab bar in shower, support near the toilet) Home Equipment: Standard walker, Cane, Home oxygen (manual recliner chair) Other : pt reports no use of AD prior to admission. pt states he sleeps on the couch and has home oxygen but does not typically wear it Prior Function Lives With: Son, Other (Comment) (pt lives w/ his son and DIL) Receives Help From: Family (son and DIL both work) Level of Mobility: Needs assistance with ADLs or functional transfers or gait Transfers: Independent (pt has assist from son in/out of the shower) Mobility: Independent Toileting: Independent Bath: Min assist Dressing: Min assist Grooming: Independent Feeding: Independent Homemaking Assistance: Needs assistance Driving: Total assist Other: pt reports his family does the house hold IADLs Vocational: Retired ADL / IADL Hand Dominance: Right Where Assessed: Supine, bed, Edge of bed, Chair Eating Assistance: Standby assist, Setup (beverage management) Grooming Assistance: Mod assist, Setup (seated) Bathing/Showering Assistance: Max assist Toilet/Commode Assistance: Total assist (jorgensen catheter, anuja care) UE Dressing Assistance: Mod assist LE Dressing Assistance: Max assist Footwear Assistance: Max assist Footwear Deficit: R sock, L sock Hearing / Speech / Vision Hearing: Hard of hearing/hearing concerns (mild) Speech: Within Functional Limits Current Vision: Does not wear glasses Other: pt kept his eyes closed through majority of evaluation Cognition Overall Cognitive Status: Within Functional Limits Orientation Level: Oriented X4 Sensation Overall Sensation Status: (pt denies numbness/tingling) Bed Mobility Supine to Sit: Left, Mod assist (x2 with HOB slightly elevated) Sit to Supine: (up in chair w/ call light) Other: mod assist to scoot edge of bed in preparation for standing Transfers Sit to Stand: Mod assist, Verbal cues (x2 from elevated surface height. 2 attempts needed) Stand to Sit: Mod assist, Verbal cues Bed to Chair: Min assist (w/ use of RW) Other: verbal cues needed for safe transfer technique w/ use of RW Gait Pattern: Decreased karime Gait Assistance: Min assist Assistive Device: Rolling walker Gait Distance: 30' Limiting Factors to Gait: Fatigue Balance Balance Evaluation: Exceptions to Functional Limits Sitting Balance: Dynamic: Fair Standing Balance: Static: Fair (fair-) Standing Balance: Dynamic: Poor Other: RW upper extrem support when standing, ambulating RUE Assessment: Exceptions to WFL (generalized weakness) LUE Assessment: Exceptions to WFL (generalized weakness) Activity Tolerance Endurance: Tolerates <30 minutes activity WITHOUT vital sign changes Other: pt reports feeling worn out after sitting up EOB and amb 30' in the hospital room Plan Occupational Therapy Care Plan Occupational Therapy Care Plan (Active) Template: OT - Occupational Therapy Problem: Activity Tolerance Dates: Start: 07/02/24 Disciplines: OT Goal: Tolerate > 30 minutes of activity WITHOUT rest breaks Dates: Start: 07/02/24 Expected End: 07/23/24 Description: Goal Description: Disciplines: OT Problem: Bathing LB Dates: Start: 07/02/24 Disciplines: OT Goal: Patient will perform bathing LB with Minimum Assist Dates: Start: 07/02/24 Expected End: 07/23/24 Description: Goal Description: Disciplines: OT Problem: Bathing UB Dates: Start: 07/02/24 Disciplines: OT Goal: Patient will perform bathing UB with Minimum Assist Dates: Start: 07/02/24 Expected End: 07/23/24 Description: Goal Description: Disciplines: OT Problem: Bed Mobility Dates: Start: 07/02/24 Disciplines: OT Goal: Patient will perform bed mobility with Stand By Assist Dates: Start: 07/02/24 Expected End: 07/23/24 Description: Goal Description: Disciplines: OT Problem: Dressing LB Dates: Start: 07/02/24 Disciplines: OT Goal: Patient will perform dressing LB with Minimum Assist Dates: Start: 07/02/24 Expected End: 07/23/24 Description: Goal Description: Disciplines: OT Problem: Dressing UB Dates: Start: 07/02/24 Disciplines: OT Goal: Patient will perform dressing UB with Minimum Assist Dates: Start: 07/02/24 Expected End: 07/23/24 Description: Goal Description: Disciplines: OT Problem: Functional Mobility Dates: Start: 07/02/24 Disciplines: OT Goal: Patient will perform functional mobility with Stand By Assist Dates: Start: 07/02/24 Expected End: 07/23/24 Description: Goal Description: Disciplines: OT Problem: Grooming Dates: Start: 07/02/24 Disciplines: OT Goal: Patient will perform grooming with Set-Up Dates: Start: 07/02/24 Expected End: 07/23/24 Description: Goal Description: Disciplines: OT Problem: Sitting Balance Dates: Start: 07/02/24 Disciplines: OT Goal: Improve balance to good Dates: Start: 07/02/24 Expected End: 07/23/24 Description: Pt will demo good sitting balance 100% of the time. Disciplines: OT Problem: Standing Balance Dates: Start: 07/02/24 Disciplines: OT Goal: Improve balance to good Dates: Start: 07/02/24 Expected End: 07/23/24 Description: Pt will demo good standing balance w/ use of AD for 5-8 minutes Disciplines: OT Problem: Strength Dates: Start: 07/02/24 Disciplines: OT Goal: Improve strength Dates: Start: 07/02/24 Expected End: 07/23/24 Description: Of extremity/ location:pt will demo good understanding, tolerance for B UE HEP To facilitate: Disciplines: OT Problem: Toilet Transfers Dates: Start: 07/02/24 Disciplines: OT Goal: Patient will perform toilet transfers with Stand By Assist Dates: Start: 07/02/24 Expected End: 07/23/24 Description: Goal Description: Disciplines: OT Problem: Toileting Dates: Start: 07/02/24 Disciplines: OT Goal: Patient will perform toileting with Stand By Assist Dates: Start: 07/02/24 Expected End: 07/23/24 Description: Goal Description: Disciplines: OT Problem: Transfers Dates: Start: 07/02/24 Disciplines: OT Goal: Patient will perform transfers with Stand By Assist Dates: Start: 07/02/24 Expected End: 07/23/24 Description: Goal Description: Disciplines: OT Occupational Therapy Care Plan (Resolved) There are no resolved problems. Principal Problem: Fall in home, initial encounter [facility] [employer] [facility]24 Plan of care note Problem: Pain Goal: Patient goal is pain score less than 4, able to rest, and participant in treatment plan as appropriate Description: INTERVENTIONS: 1. Encourage patient or legal outbound telemarketing representative to report early pain and ask for pain medicine when needed 2. Assess pain using appropriate pain scale and include the scale used when documenting 3. Administer analgesics based on type and severity of pain and evaluate response within appropriate time frame 4. Implement non-pharmacological measures as appropriate and evaluate response 5. Consider cultural and social influences on pain and pain management 6. Notify LIP if interventions ineffective or patient reports new pain 7. Monitor vital signs including pulse ox, end-tidal CO2 based on pain intervention 8. Reassess pain per policy 9. Teach patient or legal outbound telemarketing representative interventions for comforting Outcome: Progressing Note: Evaluation of progress towards goal: pt denies pain at this time. Will continue to assess Problem: Safety Goal: Patient will be injury free during hospitalization Description: INTERVENTIONS: 1. Assess patient's risk for falls and implement fall prevention plan of care per policy 2. Provide and maintain a safe environment 3. Proper use of double Identifiers 4. Medication administration using the 5 rights 5. Hand hygiene 6. Specimens are labeled at the bedside 7. Instruct patient/ patient outbound telemarketing representative about use of safety devices 8. Include patient/ patient outbound telemarketing representative in decisions related to safety Outcome: Progressing Note: Evaluation of progress towards goal: bed is locked and in lowest position. Call light within reach and hourly rounding maintained. PT to see Problem: Infection Goal: Absence of infection during hospitalization Description: INTERVENTIONS 1. Assess and monitor for signs and symptoms of infection. 2. Monitor lab/diagnostic results. 3. Monitor all insertion sites i.e., indwelling lines, tubes and drains. 4. Monitor endotracheal (as able) and nasal secretions for changes in amount and color. 5. Administer medications as ordered. 6. Instruct and encourage patient and family to use good hand hygiene technique. 7. Identify and instruct patient/patient outbound telemarketing representative in use of appropriate isolation precautions for identified infection/symptoms. 8. Provide and discuss with patient/patient outbound telemarketing representative on educational MDRO sheet. 9. Encourage and monitor nutritional status daily and consult bariatric nurse if indicated. 10. Implement neutropenic guidelines as needed. Outcome: Progressing Note: Evaluation of progress towards goal: pt is afebrile and free from s/s of infection. Will continue to monitor Problem: Knowledge Deficit Goal: Patient/patient outbound telemarketing representative demonstrates understanding of disease process, treatment plan, medications, and discharge instructions Description: INTERVENTIONS 1. Complete learning assessment and assess knowledge base 2. Provide teaching at level of understanding 3. Provide teaching via preferred learning method(s) Outcome: Progressing Note: Evaluation of progress towards goal: plan of care explained to patient Problem: Discharge Planning Goal: Discharge to post-acute care, other facility, or home with appropriate resources Description: Patient's goal is: INTERVENTIONS 1. Conduct assessment to determine patient/family and health care team treatment goals, and need for post-acute services based on payer coverage, community resources, and patient preferences, and barriers to discharge 2. Coordinate with Social work, Care Navigation, and Utilization Review to arrange appropriate level of services according to patient's needs based on patient preference and payer coverage in collaboration with the physician and health care team 3. Address psychosocial, clinical, and financial barriers to discharge as identified in assessment in conjunction with the patient/family and health care team 4. Consult appropriate ancillary services (i.e.. PT/OT/ST, etc) as needed 5. Communicate with and update the patient/family, physician, and health care team regarding progress on the discharge plan 6. Identify discharge learning needs (meds, wound care, etc). 7. Arrange for needed discharge transportation as appropriate Outcome: Progressing Note: Evaluation of progress towards goal: In progress Problem: Potential for Compromised Skin Integrity Goal: Skin integrity is maintained or improved Description: Patient's goal is: INTERVENTIONS 1. Perform initial skin assessment on admission and as needed 2. Turn patient every 2 hours and PRN 3. Relieve pressure to bony prominences 4. Avoid shearing 5. Keep skin clean and dry 6. Alternate a full bath with partial baths for elderly 7. Apply lotion/moisturizer on skin 8. Monitor patient's hygiene practices 9. Float heels 10. Collaborate with interdisciplinary team and initiate plans and interventions as needed Outcome: Progressing Note: Evaluation of progress towards goal: pt skin is clean, dry, and intact. Goal: Patient's nutritional intake is adequate Description: Patient's goal is: INTERVENTIONS 1. Assess and monitor food intake and supplements, patient food preferences, nausea, vomiting, labs, oral cavity (gums, teeth, tongue, mucosa), proper denture fit, and cultural beliefs 2. Monitor for signs of hypoglycemia and hyperglycemia 3. Collaborate with interdisciplinary team and initiate plan and interventions as ordered 4. Monitor patient's weight 5. Assist patient with meals/food selection 6. Assist patient with eating 7. Allow adequate time for meals 8. Provide pleasant environment during mealtime 9. Increase social contact during mealtimes 10. Plan activities to conserve energy 11. Encourage/perform oral hygiene as appropriate 12. Encourage patient to take dietary supplement as ordered 13. Collaborate with clinical bariatric nurse 14. Include patient/ patient's outbound telemarketing representative in decisions related to nutrition Outcome: Progressing Note: Evaluation of progress towards goal: Pt nutritional intake will be monitored during this shift Problem: Urinary Incontinence Goal: Perineal skin integrity is maintained or improved Description: INTERVENTIONS 1. Assess genitourinary system, perineal skin, labs (urinalysis), and history of incontinence to include past management, aggravating, and alleviating factors 2. Keep skin clean and dry 3. Apply skin protectant 4. Develop skin care regimen 5. Provide privacy when changing patients incontinence device to maintain their dignity 6. Consider placing an indwelling catheter 7. Collaborate with interdisciplinary team and initiate plans and interventions as needed Outcome: Progressing Note: Evaluation of progress towards goal: jorgensen remains in place. Skin is clean, dry, and intact Problem: Moderate - High Risk Fall Score Description: Issa Fall Score of =/> 25 or indicated by [facility] Assessment Goal: Patient should be free from fall Description: Interventions: 1. [place] to environment 2. Hourly rounds addressing the 4 P's (Pain, Positioning, Possessions, Potty) 3. Clear area of hazards (spills, clutter, electrical cords, unnecessary equipment) 4. Place equipment (bed & TV controls, call light, phone, urinal) within reach 5. Encourage patient to wear glasses and hearing aides as appropriate 6. Maintain bed in lowest position 7. Lock wheels on bed/wheelchair 8. Provide adequate lighting, including night light 9. Assess need for additional bedding, food/fluids, pain med's prior to sleep/routinely 10. Provide gripper slippers or personal non-skid footwear 11. Teach patient and patient outbound telemarketing representative to maintain environment for safety and engage in all aspects of fall prevention program 12. Remind patient to call for help before getting out of bed 13. Initiate bed/chair/exit alarms supportive devices as appropriate, (chair wedge, no-skid floor mat, raised edge mattress, hip protectors) 14. Locate patient bed assignment for optimal visualization 15. Evaluate and identify Safe Patient Handling Equipment needs 16. Provide supervision when out of bed or chair 17. Utilize gait belt as needed to assist with ambulation 18. Place adaptive equipment (cane, walker) within reach 19. Request patient outbound telemarketing representative bring adaptive equipment/mobility aids from home or obtain and provide as needed 20. Consult pharmacy regarding effects of med's affecting mobility, cognition, and alternatives 21. Obtain physician order for PT if risk factors associated with mobility are present 22. Obtain physician order for OT as appropriate 23. Utilize diversional activities 24. Educate patient and patient outbound telemarketing representative how to maintain a safe environment during visitation times (notify nurse prior to leaving bedside) 25. Consider appropriateness of medical or non-certified medical coding specialist 26. Set up voiding schedule as appropriate (every 2 hours) Outcome: Progressing Note: Evaluation of progress towards goal: bed is locked and in lowest position. Call light within reach and hourly rounding maintained [facility] 07-02-2024 Nurse Note Pt pulse ox at 84%, pt placed on 2 liters of oxygen, notified patients nurse Ligia Soliz Rn of 02 placement. Pt resting quietly. [facility] 07-02-2024 Progress note Formatting of t his note might be different from the original. DISCHARGE PLANNING NOTE Case discussed in daily transition rounds and chart reviewed by CN. Barriers to discharge include PT/OT recommendations. Duplex BLE, Jorgensen-hematuria, restarted eliquis watching Hgb. H&H q12 Discharge Plan remains: Home with son pending PT/OT recommendations. CN will continue to follow and is available should any further needs arise. - Julisa Del Toro RN 07/02/24 11:04 AM PT/OT recommend SNF. List given to patient. Patient Stated his son makes all the decisions. Called son Ashok. Ashok would like [facility]-he has been there before. Referral sent. - Julisa Del Toro RN 07/02/24 3:[facility] PM [facility]-02-[facility]24 Progress note Formatting of t his note is different from the original. Physical Therapy PT Type of Visit: Medical deferral Reason For Medical Deferral: Off unit Off Unit: [facility] 07-02-2024 Progress note Formatting of t his note is different from the original. Occupational Therapy OT Type of Visit: Medical deferral Reason For Medical Deferral: Off unit Off Unit: Testing Activity Limitations: Strict bedrest [facility] 07-02-2024 Consult note Formatting of th is note is different from the original. NUTRITION ADULT INITIAL EVALUATION NUTRITION ASSESSMENT: Reason to be seen: screen: PO/wt loss Patient History: Admit Diagnosis: Patient Active Problem List Diagnosis Fall in home, initial encounter Past Medical History: Past Medical History: Diagnosis Date Cardiac arrest ([facility]) 02/2024 Coronary artery disease Dementia ([facility]) Fall in home, initial encounter 06/29/2024 Hemorrhoids Hyperlipidemia Hypertension Kidney stone Memory loss Myocardial infarction ([facility]) Urinary tract infection Past Surgical History:History reviewed. No pertinent surgical history. Social/ Cognitive/ Economic: A/Ox4; dementia but per RN, pt answers questions appropriately. Per son, PMH includes alcoholism, but pt no longer drinks EtOH. Brief Clinical Summary: 78 y.o. White or male. Presented to [facility] ED via EMS as a level 2 trauma after sustaining a fall from standing height; upgraded to level 1 given hypotension. PMH: Afib, CAD, dementia, SC. At outside ED, CTAP showed possible hematoma or active bleed concerning for renal laceration. Biochemical Data, Medical Tests, and Procedures: reviewed Labs: Results from last 3 days Lab Units 07/02/24 0601 07/01/24 1649 07/01/24 0828 07/01/24 02106/30/24 0210 SODIUM mmol/L 142 -- -- 141 142 POTASSIUM mmol/L 4.1 4.2 3.8 3.7 4.2 CHLORIDE mmol/L 108 -- -- 111* 112* CO2 mmol/L 26 -- -- 25 22 BUN mg/dL 13 -- -- 16 20 CREATININE mg/dL 1.15 -- -- 1.24 1.39* CALCIUM mg/dL 8.2* -- -- 7.9* 7.4* Results from last 7 days Lab Units 07/02/24 0601 07/02/24 0537 07/02/24 0521 07/01/24 2315 07/01/24 2101 07/01/24 1743 07/01/24 1137 BEDSIDE GLUCOSE mg/dL -- 87 90 106* 133* 96 118* GLUCOSE mg/dL 93 -- -- -- -- -- -- Results from last 3 days Lab Units 07/02/24 0601 07/01/24 1649 07/01/24 0215 06/30/24 0905 06/30/24 0210 WBC X10E9/L 7.3 -- 9.5 -- 10.1 HEMOGLOBIN g/dL 10.7* 10.6* 10.2* < > 10.4* HEMATOCRIT % 31.2* 31.8* 29.9* < > 30.3* PLATELETS X10E9/L 228 -- 235 -- 197 MCV fL 93 -- 92 -- 92 < > = values in this interval not displayed. Results from last 3 days Lab Units 07/01/2406/30/25 0210 IONIZED MAGNESIUM mmol/L 0.55 0.53 Results from last 3 days Lab Units 07/01/24 0215 06/30/24 021 PHOSPHORUS mg/dL 2.4 3.5 CALCIUM, IONIZED mg/dL 4.8 4.7 No data from last 3 days. Lab Results Component Value Date HGBA1C 5.6 06/29/2024 No results found for: IRON , TIBC , FERRITIN No results found for: IRONSAT No results found for: CHOL No results found for: CHDL No results found for: HDL No results found for: LDLCALC No results found for: TRIG No results found for: VERYLOWLIP No results found for: [id number] No results found for: FOLATE No results found for: VITD25 Comments (labs): reviewed Medications/ Parenteral: glycolax, senokot-S, namenda, Kcl Medications Prior to Admission Medication Sig Dispense Refill Last Dose/Taking amiodarone (PACERONE) 200 mg tablet Take 1 tablet (200 mg total) by mouth in the morning and 1 tablet (200 mg total) before bedtime. Taking apixaban (ELIQUIS) 5 mg tablet Take 1 tablet (5 mg total) by mouth in the morning and 1 tablet (5 mg total) before bedtime. Taking atorvastatin (LIPITOR) 80 mg tablet Take 1 tablet (80 mg total) by mouth nightly. Taking carvediloL (COREG) 3.125 mg tablet Take 1 tablet (3.125 mg total) by mouth in the morning and 1 tablet (3.125 mg total) before bedtime. Taking cefaDROXil (DURICEF) 500 mg capsule Take 1 capsule (500 mg total) by mouth in the morning and 1 capsule (500 mg total) before bedtime. Taking clopidogreL (PLAVIX) 75 mg tablet Take 1 tablet (75 mg total) by mouth in the morning. Taking dapagliflozin propanediol (FARXIGA) 10 mg tablet Take 1 tablet (10 mg total) by mouth in the morning. Taking furosemide (LASIX) 40 mg tablet Take 1 tablet (40 mg total) by mouth as needed. Taking As Needed ipratropium-albuteroL (DUONEB) 0.5 mg-3 mg(2.5 mg base)/3 mL nebulizer Inhale 3 mL in the morning and 3 mL at noon and 3 mL in the evening and 3 mL before bedtime. Taking memantine (NAMENDA XR) 21 mg capsule,sprinkle,ER 24hr Take 1 capsule (21 mg total) by mouth in the morning. Taking [] nitrofurantoin, macrocrystal-monohydrate, (MACROBID) 100 mg capsule Take 1 capsule (100 mg total) by mouth in the morning and 1 capsule (100 mg total) before bedtime. Taking spironolactone (ALDACTONE) 25 mg tablet Take 0.5 tablets (12.5 mg total) by mouth nightly. Taking Current Facility-Administered Medications Medication Dose Route Frequency Provider Last Rate Last Admin amiodarone (PACERONE) tablet 200 mg 200 mg oral BID MARIA A Dunlap 200 mg at 07/02/24 0829 atorvastatin (LIPITOR) tablet 80 mg 80 mg oral Nightly MARIA A Dunlap 80 mg at 07/01/244 calcium gluconate IVPB 1000 mg/50 mL (20 mg/mL premix) 1,000 mg intravenous PRN MARIA A García Or calcium gluconate IVPB 2000 mg/100 mL (20 mg/mL premix) 2,000 mg intravenous PRN MARIA A García Or calcium gluconate 3,000 mg in sodium chloride 0.9 % 100 mL IVPB 3,000 mg intravenous PRN MARIA A García dextrose (GLUTOSE) 40 % gel 15 g 15 g oral PRN MARIA A García dextrose 50 % in water (D50W) 50% solution 25 mL 25 mL intravenous PRN MARIA A García 25 mL at 06/30/24 0542 famotidine (PF) (PEPCID) injection 20 mg 20 mg intravenous Q24H MARIA A Monique 20 mg at 07/02/24 0829 fentaNYL (SUBLIMAZE) injection 25 mcg 25 mcg intravenous Q1H PRN MARIA A García 25 mcg at 06/29/24 0324 flu vacc [id number] 6mos up(PF) (FLULAVAL/FLUZONE/FLUARIX TRIV) injection syringe 0.5 mL 0.5 mL intramuscular During hospitalization Ru Schwarz MD glucagon HCL injection 1 mg 1 mg intramuscular PRN MARIA A García insulin lispro (HumaLOG) injection 2-10 Units 2-10 Units subcutaneous Q6H MARIA A García ipratropium-albuteroL (DUONEB) 0.5 mg-3 mg(2.5 mg base)/3 mL nebulizer solution 3 mL 3 mL nebulization Q6H PRN MARIA A Dunlap lidocaine (LIDODERM) 5 % 1 patch 1 patch transdermal Daily MARIA A García magnesium sulfate IVPB 2000 mg/50 mL in iso-osmotic water (40 mg/mL premix) 2,000 mg intravenous PRN MARIA A García Or magnesium sulfate IVPB 4000 mg/100 mL in iso-osmotic water (40 mg/mL premix) 4,000 mg intravenous PRN MARIA A García memantine (NAMENDA) tablet 10 mg 10 mg oral BID MARIA A Dunlap 10 mg at 07/02/24 0829 ondansetron (PF) (ZOFRAN) injection 4 mg 4 mg intravenous Q6H PRN MARIA A García 4 mg at 06/29/24 0324 pneumococcal conj. 20-valent (PREVNAR-20) vaccine 0.5 mL 0.5 mL intramuscular During hospitalization Ru Schwarz MD polyethylene glycol (GLYCOLAX) packet 17 g 17 g oral Daily MARIA A García 17 g at 07/02/24 0829 potassium chloride (K-TAB,KLOR-CON) CR tablet 20-50 mEq 20-50 mEq oral PRN MARIA A García Or potassium chloride (KAYCIEL) 20 mEq/15 mL solution 20-50 mEq 20-50 mEq oral PRN MARIA A García potassium chloride IVPB 10 mEq/50 mL in water (0.2 mEq/mL premix) 10 mEq intravenous PRN MARIA A García Or potassium chloride IVPB 10 mEq/100 mL in water (0.1 mEq/mL premix) 10 mEq intravenous PRN MARIA A García Stopped at 07/01/24 1240 sennosides-docusate sodium (SENOKOT-S) 8.6-50 mg 2 tablet 2 tablet oral BID MARIA A García 2 tablet at 07/02/24 0829 sodium phosphate 20 mmol in sodium chloride 0.9 % 250 mL IVPB 20 mmol intravenous PRN MARIA A García Or sodium phosphate 20 mmol in sodium chloride 0.9 % 100 mL IVPB 20 mmol intravenous PRN MARIA A García Or sod phos di, mono-K phos mono (K-PHOS NEUTRAL) 250 mg tablet 2 tablet 2 tablet oral PRN MARIA A García sodium chloride 0.9 % flush 3 mL 3 mL intravenous PRN MARIA A García sodium chloride 0.9 % flush 3 mL 3 mL intravenous Q12H TYRON MARIA A García 3 mL at 07/02/24 0830 sodium chloride 0.9 % infusion 20 mL/hr intravenous Continuous PRN Fransico Villagomez MD Nutrition Focused Physical Findings Last BM: 06/28, +1 edema, dementia/altered mentation Extremities, Muscles, and Bones -NICOLAS; credit underwriter remote. Skin (per nursing flow sheets): Skin Color: [place]wood (07/02/24521) Skin Temp: Warm; Dry (07/02/24521) Wound (per nursing flow sheets): Gastrointestinal (per nursing flow sheets): Abdomen Assessment: Soft; Rounded (07/02/24521) Last BM Date: 06/28/24 (07/02/24521) Passing Flatus: Yes (07/02/24521) RUQ Bowel Sounds: Active (07/02/24521) LUQ Bowel Sounds: Active (07/02/24521) RLQ Bowel Sounds: Active (07/02/24521) LLQ Bowel Sounds: Active (07/02/24521) GI Symptoms: None (07/02/24521) Edema (per nursing flow sheets): RLE Edema: +1 (07/02/24521) LLE Edema: +1 (02/18/25 0522) Intake/ Output Last 24 hrs: Intake/Output Summary (Last 24 hours) at 07/02/2024 0920 Last data filed at 07/02/2024 0800 Gross per 24 hour Intake 1879.08 ml Output 3145 ml Net -1265.92 ml Food/Nutrition Related History: Diet History: Discussed POC with sonAshok, via telephone, and with pt. Per nutrition screening, recent unplanned wt loss of 10 lbs or more and son describes that as fluid loss after starting diuretics which resulted in edema/swelling at ankles improving. Per screening, PO intake of less than 50% of normal intake over last 2 wks; son notes it is likely r/t the procedure and not feeling well. 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 Son noted the pt's preferred foods seem to be softer foods, possibly r/t ill-fitting dentures and chewing difficulties. Also notes pt is sensitive to spice (hot flavors). Enjoys rice krispies, mashed potatoes/gravy, cheetoes, cookies, donuts, snack cakes, pie, meatloaf, jak steak, pancake, eggs, and usually eats smaller breakfast, lunch and dinner so he can snack throughout the day. Allergies: No Known Allergies Per son, NKFA. Diet/ Nutrition Order Review: Dietary Orders (From admission, onward) Start Ordered 07/01/24 0934 Adult diet Regular Texture Diet effective now Question: Diet Type: Answer: Regular Texture 07/01/24 0935 Diet Intakes: Percent Meals Eaten (%): 100 (07/01/24 1100) Reg texture. No appetite information in RN flowsheets. RN notes appetite is good. Pt noted he ate about 100% of breakfast 07/02 Oral Supplemental Intake/ Acceptance: none ordered; agreeable to [facility] janie Anthropometrics: Ht Readings from Last 1 Encounters: 06/29/24 182.9 cm (6') Wt Readings from Last 20 Encounters: 07/02/24 98.7 kg (217 lb 9.5 oz) 06/28/24 93 kg (205 lb) Last 3 Weight Readings 06/30/24 0500 07/01/24 0500 07/02/24 0417 Weight: 102.4 kg (225 lb 12 oz) 99.4 kg (219 lb 2.2 oz) 98.7 kg (217 lb 9.5 oz) Current wt: 98.7 kg (Bed Scale, 07/02) Admit Weight: 97.5 kg (Bed Scale, 06/29) Usual Body Weight: (06/25/24) 90.1 kg per EMR/[facility]. Pt is unsure of UBW; noted his son knows all that stuff . [place] Body Weight: 80.9 kg Percent [place] Body Weight: >100% Weight Changes: up this admit Body Mass Index: Body mass index is 29.51 kg/m . BMI Category: Pre-obese (25.00- 29.99) Comparative Standards: Estimated Energy Needs: 2110-9716 kcals daily. Method and weight used: 25-30 kcal/kg Estimated Protein Needs: 97-161 grams daily. Method and weight used: 1.2-2g protein/kg Estimated Fluid Needs: 7134-7117 ml daily. Method weight used: 1 ml/kcal Comments: BMI, IBW, general Malnutrition Status: Malnutrition Present: no; More information needed. NUTRITION DIAGNOSIS: Intake Diagnosis: Inadequate protein-energy intake (NI 5.3) related to mentation status (dementia Dx) as evidenced by PO intake of less than 50% of normal over last 2 weeks. NUTRITION INTERVENTIONS: Coordination of nutrition care: discussed POC/intakes with RNKaylah; and contacted son via telephone Meals & snacks: Encourage PO intake, as medically able. Recommend soft foods r/t possible chewing difficulties/ill-fitting dentures Supplements: will order ensure plus high protein BID (vanilla) to provide 350 kcal and 20 grams of protein per serving. RECOMMENDATIONS: Please record % meals eaten in RN Flowsheets for ongoing assessment. Please record pt wt and weighing method in RN flowsheets. Thank you! GOAL(S): Meet estimated calorie and protein needs. NUTRITION MONITORING AND EVALUATION: PO intakes, weight trend, labs, POC and overall status. Morales Sosa MS, RD, LD Clinical Dietitian [facility] 07-02-2024 Consult note Formatting of th is note is different from the original. NUTRITION ADULT INITIAL EVALUATION NUTRITION ASSESSMENT: Reason to be seen: screen: PO/wt loss Patient History: Admit Diagnosis: Patient Active Problem List Diagnosis Fall in home, initial encounter Past Medical History: Past Medical History: Diagnosis Date Cardiac arrest ([facility]) 02/2024 Coronary artery disease Dementia ([facility]) Fall in home, initial encounter 06/29/2024 Hemorrhoids Hyperlipidemia Hypertension Kidney stone Memory loss Myocardial infarction ([facility]) Urinary tract infection Past Surgical History:History reviewed. No pertinent surgical history. Social/ Cognitive/ Economic: A/Ox4; dementia but per RN, pt answers questions appropriately. Per son, PMH includes alcoholism, but pt no longer drinks EtOH. Brief Clinical Summary: 78 y.o. White or male. Presented to [facility] ED via EMS as a level 2 trauma after sustaining a fall from standing height; upgraded to level 1 given hypotension. PMH: Afib, CAD, dementia, SC. At outside ED, CTAP showed possible hematoma or active bleed concerning for renal laceration. Biochemical Data, Medical Tests, and Procedures: reviewed Labs: Results from last 3 days Lab Units 07/02/24 0601 07/01/24 1649 07/01/24 0828 07/01/24 0215 06/30/24 0210 SODIUM mmol/L 142 -- -- 141 142 POTASSIUM mmol/L 4.1 4.2 3.8 3.7 4.2 CHLORIDE mmol/L 108 -- -- 111* 112* CO2 mmol/L 26 -- -- 25 22 BUN mg/dL 13 -- -- 16 20 CREATININE mg/dL 1.15 -- -- 1.24 1.39* CALCIUM mg/dL 8.2* -- -- 7.9* 7.4* Results from last 7 days Lab Units 07/02/24 0601 07/02/24 0537 07/02/24 0521 07/01/24 2315 07/01/24 2101 07/01/24 1743 07/01/24 1137 BEDSIDE GLUCOSE mg/dL -- 87 90 106* 133* 96 118* GLUCOSE mg/dL 93 -- -- -- -- -- -- Results from last 3 days Lab Units 07/02/24 0601 07/01/24 1649 07/01/24 0215 06/30/24 0905 06/30/24 0210 WBC X10E9/L 7.3 -- 9.5 -- 10.1 HEMOGLOBIN g/dL 10.7* 10.6* 10.2* < > 10.4* HEMATOCRIT % 31.2* 31.8* 29.9* < > 30.3* PLATELETS X10E9/L 228 -- 235 -- 197 MCV fL 93 -- 92 -- 92 < > = values in this interval not displayed. Results from last 3 days Lab Units 07/01/24 0215 06/30/24 021 IONIZED MAGNESIUM mmol/L 0.55 0.53 Results from last 3 days Lab Units 07/01/2421406/30/24 021 PHOSPHORUS mg/dL 2.4 3.5 CALCIUM, IONIZED mg/dL 4.8 4.7 No data from last 3 days. Lab Results Component Value Date HGBA1C 5.6 06/29/2024 No results found for: IRON , TIBC , FERRITIN No results found for: IRONSAT No results found for: CHOL No results found for: CHDL No results found for: HDL No results found for: LDLCALC No results found for: TRIG No results found for: VERYLOWLIP No results found for: [id number] No results found for: FOLATE No results found for: VITD25 Comments (labs): reviewed Medications/ Parenteral: glycolax, senokot-S, namenda, Kcl Medications Prior to Admission Medication Sig Dispense Refill Last Dose/Taking amiodarone (PACERONE) 200 mg tablet Take 1 tablet (200 mg total) by mouth in the morning and 1 tablet (200 mg total) before bedtime. Taking apixaban (ELIQUIS) 5 mg tablet Take 1 tablet (5 mg total) by mouth in the morning and 1 tablet (5 mg total) before bedtime. Taking atorvastatin (LIPITOR) 80 mg tablet Take 1 tablet (80 mg total) by mouth nightly. Taking carvediloL (COREG) 3.125 mg tablet Take 1 tablet (3.125 mg total) by mouth in the morning and 1 tablet (3.125 mg total) before bedtime. Taking cefaDROXil (DURICEF) 500 mg capsule Take 1 capsule (500 mg total) by mouth in the morning and 1 capsule (500 mg total) before bedtime. Taking clopidogreL (PLAVIX) 75 mg tablet Take 1 tablet (75 mg total) by mouth in the morning. Taking dapagliflozin propanediol (FARXIGA) 10 mg tablet Take 1 tablet (10 mg total) by mouth in the morning. Taking furosemide (LASIX) 40 mg tablet Take 1 tablet (40 mg total) by mouth as needed. Taking As Needed ipratropium-albuteroL (DUONEB) 0.5 mg-3 mg(2.5 mg base)/3 mL nebulizer Inhale 3 mL in the morning and 3 mL at noon and 3 mL in the evening and 3 mL before bedtime. Taking memantine (NAMENDA XR) 21 mg capsule,sprinkle,ER 24hr Take 1 capsule (21 mg total) by mouth in the morning. Taking [] nitrofurantoin, macrocrystal-monohydrate, (MACROBID) 100 mg capsule Take 1 capsule (100 mg total) by mouth in the morning and 1 capsule (100 mg total) before bedtime. Taking spironolactone (ALDACTONE) 25 mg tablet Take 0.5 tablets (12.5 mg total) by mouth nightly. Taking Current Facility-Administered Medications Medication Dose Route Frequency Provider Last Rate Last Admin amiodarone (PACERONE) tablet 200 mg 200 mg oral BID MARIA A Dunlap 200 mg at 07/02/24 0829 atorvastatin (LIPITOR) tablet 80 mg 80 mg oral Nightly MARIA A Dunlap 80 mg at 07/01/244 calcium gluconate IVPB 1000 mg/50 mL (20 mg/mL premix) 1,000 mg intravenous PRN MARIA A García Or calcium gluconate IVPB 2000 mg/100 mL (20 mg/mL premix) 2,000 mg intravenous PRN MARIA A García Or calcium gluconate 3,000 mg in sodium chloride 0.9 % 100 mL IVPB 3,000 mg intravenous PRN MARIA A García dextrose (GLUTOSE) 40 % gel 15 g 15 g oral PRN MARIA A García dextrose 50 % in water (D50W) 50% solution 25 mL 25 mL intravenous PRN MARIA A García 25 mL at 06/30/24 0542 famotidine (PF) (PEPCID) injection 20 mg 20 mg intravenous Q24H TYRON MARIA A García 20 mg at 07/02/24 0829 fentaNYL (SUBLIMAZE) injection 25 mcg 25 mcg intravenous Q1H PRN MARIA A García 25 mcg at 06/29/24 0324 flu vacc [id number] 6mos up(PF) (FLULAVAL/FLUZONE/FLUARIX TRIV) injection syringe 0.5 mL 0.5 mL intramuscular During hospitalization Ru Schwarz MD glucagon HCL injection 1 mg 1 mg intramuscular PRN MARIA A García insulin lispro (HumaLOG) injection 2-10 Units 2-10 Units subcutaneous Q6H MARIA A García ipratropium-albuteroL (DUONEB) 0.5 mg-3 mg(2.5 mg base)/3 mL nebulizer solution 3 mL 3 mL nebulization Q6H PRN MARIA A Dunlap lidocaine (LIDODERM) 5 % 1 patch 1 patch transdermal Daily MARIA A García magnesium sulfate IVPB 2000 mg/50 mL in iso-osmotic water (40 mg/mL premix) 2,000 mg intravenous PRN MARIA A García Or magnesium sulfate IVPB 4000 mg/100 mL in iso-osmotic water (40 mg/mL premix) 4,000 mg intravenous PRN MARIA A García memantine (NAMENDA) tablet 10 mg 10 mg oral BID MARIA A Dunlap 10 mg at 07/02/24 0829 ondansetron (PF) (ZOFRAN) injection 4 mg 4 mg intravenous Q6H PRN MARIA A García 4 mg at 06/29/24 0324 pneumococcal conj. 20-valent (PREVNAR-20) vaccine 0.5 mL 0.5 mL intramuscular During hospitalization Ru Schwarz MD polyethylene glycol (GLYCOLAX) packet 17 g 17 g oral Daily MARIA A García 17 g at 07/02/24 0829 potassium chloride (K-TAB,KLOR-CON) CR tablet 20-50 mEq 20-50 mEq oral PRN MARIA A García Or potassium chloride (KAYCIEL) 20 mEq/15 mL solution 20-50 mEq 20-50 mEq oral PRN MARIA A García potassium chloride IVPB 10 mEq/50 mL in water (0.2 mEq/mL premix) 10 mEq intravenous PRN MARIA A García Or potassium chloride IVPB 10 mEq/100 mL in water (0.1 mEq/mL premix) 10 mEq intravenous PRN MARIA A García Stopped at 07/01/24 1240 sennosides-docusate sodium (SENOKOT-S) 8.6-50 mg 2 tablet 2 tablet oral BID MARIA A García 2 tablet at 07/02/24 0829 sodium phosphate 20 mmol in sodium chloride 0.9 % 250 mL IVPB 20 mmol intravenous PRN MARIA A García Or sodium phosphate 20 mmol in sodium chloride 0.9 % 100 mL IVPB 20 mmol intravenous PRN MARIA A García Or sod phos di, mono-K phos mono (K-PHOS NEUTRAL) 250 mg tablet 2 tablet 2 tablet oral PRN MARIA A García sodium chloride 0.9 % flush 3 mL 3 mL intravenous PRN MARIA A García sodium chloride 0.9 % flush 3 mL 3 mL intravenous Q12H TYRON MARIA A García 3 mL at 07/02/24 0830 sodium chloride 0.9 % infusion 20 mL/hr intravenous Continuous PRN Fransico Villagomez MD Nutrition Focused Physical Findings Last BM: 06/28, +1 edema, dementia/altered mentation Extremities, Muscles, and Bones -NICOLAS; credit underwriter remote. Skin (per nursing flow sheets): Skin Color: [place] (07/02/24521) Skin Temp: Warm; Dry (07/02/24521) Wound (per nursing flow sheets): Gastrointestinal (per nursing flow sheets): Abdomen Assessment: Soft; Rounded (07/02/24521) Last BM Date: 06/28/24 (07/02/24521) Passing Flatus: Yes (07/02/24521) RUQ Bowel Sounds: Active (07/02/24521) LUQ Bowel Sounds: Active (07/02/24521) RLQ Bowel Sounds: Active (07/02/24521) LLQ Bowel Sounds: Active (07/02/24521) GI Symptoms: None (07/02/24521) Edema (per nursing flow sheets): RLE Edema: +1 (07/02/24521) LLE Edema: +1 (07/02/24521) Intake/ Output Last 24 hrs: Intake/Output Summary (Last 24 hours) at 07/02/2024919 Last data filed at 07/02/2024 0800 Gross per 24 hour Intake 1879.08 ml Output 3145 ml Net -1265.92 ml Food/Nutrition Related History: Diet History: Discussed POC with sonAshok, via telephone, and with pt. Per nutrition screening, recent unplanned wt loss of 10 lbs or more and son describes that as fluid loss after starting diuretics which resulted in edema/swelling at ankles improving. Per screening, PO intake of less than 50% of normal intake over last 2 wks; son notes it is likely r/t the procedure and not feeling well. 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 Son noted the pt's preferred foods seem to be softer foods, possibly r/t ill-fitting dentures and chewing difficulties. Also notes pt is sensitive to spice (hot flavors). Enjoys rice krispies, mashed potatoes/gravy, cheetoes, cookies, donuts, snack cakes, pie, meatloaf, jak steak, pancake, eggs, and usually eats smaller breakfast, lunch and dinner so he can snack throughout the day. Allergies: No Known Allergies Per son, NKFA. Diet/ Nutrition Order Review: Dietary Orders (From admission, onward) Start Ordered 07/01/24 0934 Adult diet Regular Texture Diet effective now Question: Diet Type: Answer: Regular Texture 07/01/24 0935 Diet Intakes: Percent Meals Eaten (%): 100 (07/01/24 1100) Reg texture. No appetite information in RN flowsheets. RN notes appetite is good. Pt noted he ate about 100% of breakfast 07/02 Oral Supplemental Intake/ Acceptance: none ordered; agreeable to EHP vanilla Anthropometrics: Ht Readings from Last 1 Encounters: 06/29/24 182.9 cm (6') Wt Readings from Last 20 Encounters: 07/02/24 98.7 kg (217 lb 9.5 oz) 06/28/24 93 kg (205 lb) Last 3 Weight Readings 06/30/24 0500 07/01/24 0500 07/02/24 0417 Weight: 102.4 kg (225 lb 12 oz) 99.4 kg (219 lb 2.2 oz) 98.7 kg (217 lb 9.5 oz) Current wt: 98.7 kg (Bed Scale, 07/02) Admit Weight: 97.5 kg (Bed Scale, 06/29) Usual Body Weight: (06/25/24) 90.1 kg per EMR/[facility]. Pt is unsure of UBW; noted his son knows all that stuff . [place] Body Weight: 80.9 kg Percent [place] Body Weight: >100% Weight Changes: up this admit Body Mass Index: Body mass index is 29.51 kg/m . BMI Category: Pre-obese (25.00- 29.99) Comparative Standards: Estimated Energy Needs: 7535-3554 kcals daily. Method and weight used: 25-30 kcal/kg Estimated Protein Needs: 97-161 grams daily. Method and weight used: 1.2-2g protein/kg Estimated Fluid Needs: 5735-1569 ml daily. Method weight used: 1 ml/kcal Comments: BMI, IBW, general Malnutrition Status: Malnutrition Present: no; More information needed. NUTRITION DIAGNOSIS: Intake Diagnosis: Inadequate protein-energy intake (NI 5.3) related to mentation status (dementia Dx) as evidenced by PO intake of less than 50% of normal over last 2 weeks. NUTRITION INTERVENTIONS: Coordination of nutrition care: discussed POC/intakes with RNKaylah; and contacted son via telephone Meals & snacks: Encourage PO intake, as medically able. Recommend soft foods r/t possible chewing difficulties/ill-fitting dentures Supplements: will order ensure plus high protein BID (vanilla) to provide 350 kcal and 20 grams of protein per serving. RECOMMENDATIONS: Please record % meals eaten in RN Flowsheets for ongoing assessment. Please record pt wt and weighing method in RN flowsheets. Thank you! GOAL(S): Meet estimated calorie and protein needs. NUTRITION MONITORING AND EVALUATION: PO intakes, weight trend, labs, POC and overall status. Morales Sosa, MS, RD, LD Clinical Dietitian Direct Line Associated Order(s): IP CONSULT TO UROLOGY Images from the original note were not included. Urology Consult Note Patient: Neptali Loyola Date of : 1945 ATTENDING: Dr. Valenzuela CHIEF COMPLAINT: Renal hematoma HISTORY OF PRESENT ILLNESS: The patient is a 78 y.o. male who presents to the hospital due to status post fall. Urology was consulted due to above findings. Patient underwent a ureteroscopy with holmium laser lithotripsy on 06/19. He was ultimately discharged home. Patient was stent left in place and was ultimately planning for follow up outpatient. Patient presented back to hospital on 06/26 due to worsening weakness. On CT scan was found to have some postsurgical changes. Dilation of the ureter. Creatinine was normal. No hematoma found. He was ultimately discharged after hydration and patient was feeling better. Patient reportedly overnight experienced a fall at home per son. He presented to [facility]. We will CT scan showed large perinephric hematoma. Hemoglobin was low at 6.9. Similar post surgical changes were seen. Stent remains in place. Multiple stone fragments observe. Ureter continues to be dilated all the way down to the bladder. There also seems to be either contrast or stone fragments in the distal ureter. Patient's hemoglobin was 6.9. Repeat hemoglobin was 8.1. He is receiving 1 unit of blood at this time. Creatinine mildly elevated to 1.5 from 1.9 on arrival. His INR was significantly elevated at 3.1. He did receive a dose of Kcentra and this was brought down to 1.6. Patient's old records, notes and chart reviewed and summarized above. Past Medical History: Past Medical History: Diagnosis Date Coronary artery disease Dementia ([facility]) Hemorrhoids Memory loss Myocardial infarction ([facility]) Urinary tract infection Past Surgical History: History reviewed. No pertinent surgical history. Medications: Scheduled Meds: acetaminophen, 1,000 mg, intravenous, Q6H famotidine, 20 mg, intravenous, Q24H TYRON insulin lispro, 2-10 Units, subcutaneous, Q6H lidocaine, 1 patch, transdermal, Daily polyethylene glycol, 17 g, oral, Daily sennosides-docusate sodium, 2 tablet, oral, BID sodium chloride, 3 mL, intravenous, Q12H TYRON Continuous Infusions: dextrose 5 % in water, 100 mL/hr dextrose 5 % in water, 100 mL/hr lactated ringer's, 100 mL/hr, Last Rate: 100 mL/hr (06/29/24 0336) sodium chloride 0.9 %, 10 mL/hr sodium chloride 0.9 %, 10 mL/hr sodium chloride 0.9 %, 10 mL/hr PRN Meds:. calcium gluconate OR calcium gluconate OR calcium gluconate dextrose dextrose 5 % in water dextrose 5 % in water dextrose 50 % in water (D50W) fentaNYL glucagon (human recombinant) magnesium sulfate OR magnesium sulfate ondansetron potassium chloride OR potassium chloride potassium chloride in water OR potassium chloride in water sodium phosphate IV OR sodium phosphate IV - central line OR sod phos di, mono-K phos mono sodium chloride sodium chloride 0.9 % sodium chloride 0.9 % sodium chloride 0.9 % Allergies: Patient has no known allergies. Social History: Social History Socioeconomic History Marital status: Spouse name: Not on file Number of children: Not on file Years of education: Not on file Highest education level: Not on file Occupational History Not on file Tobacco Use Smoking status: Former Current packs/day: 0.00 Types: Cigarettes Quit date: 2008 Years since quittin.1 Smokeless tobacco: Never Substance and Sexual Activity Alcohol use: Not Currently Drug use: Never Sexual activity: Not on file Other Topics Concern Not on file Social History Narrative Not on file Social Drivers of Health Financial Resource Strain: Patient Declined (04/24/2024) Received from [facility] Overall Financial Resource Strain (CARDIA) Difficulty of Paying Living Expenses: Patient declined Food Insecurity: No Food Insecurity (06/29/2024) Hunger Screening Food Insecurity - Worry: Never True Food Insecurity - Inability: Never True Transportation Needs: Patient Declined (04/24/2024) Received from [facility] - Transportation Lack of Transportation (Medical): Patient declined Lack of Transportation (Non-Medical): Patient declined Physical Activity: Patient Declined (04/24/2024) Received from [facility] Exercise Vital Sign Days of Exercise per Week: Patient declined Minutes of Exercise per Session: Patient declined Stress: Patient Declined (04/24/2024) Received from [facility] [employer] - Occupational Stress Questionnaire Feeling of Stress : Patient declined Social Connections: Patient Declined (04/24/2024) Received from [facility] Social Connection and Isolation Panel [NHANES] Frequency of Communication with Friends and Family: Patient declined Frequency of Social Gatherings with Friends and Family: Patient declined Attends Congregational Services: Patient declined Active Member of Clubs or Organizations: Patient declined Attends Club or Organization Meetings: Patient declined Marital Status: Patient declined Interpersonal Safety: Unknown (04/24/2024) Received from [facility] Humiliation, Afraid, Rape, and Kick questionnaire Fear of Current or Ex-Partner: Patient declined Emotionally Abused: Patient declined Physically Abused: Not on file Sexually Abused: Patient declined Housing Instability: Patient Declined (04/24/2024) Received from [facility] Housing Stability Vital Sign Unable to Pay for Housing in the Last Year: Patient declined Number of Times Moved in the Last Year: 0 Homeless in the Last Year: Patient declined Family History: History reviewed. No pertinent family history. REVIEW OF SYSTEMS: Review of Systems Constitutional: Positive for chills, activity change and fatigue. Respiratory: Negative for apnea, choking, shortness of breath and stridor. Cardiovascular: Negative for leg swelling and chest discomfort. Gastrointestinal: Negative for constipation, blood in stool, abdominal distention and black tarry stool. Genitourinary: Positive for hematuria. Negative for urgency, difficulty urinating and testicular pain. Physical Exam: This a 78 y.o. patient Patient Vitals for the past 24 hrs: BP Temp Temp src Pulse Resp SpO2 Height Weight 06/29/24 0415 (!) 87/69 -- -- 67 (!) 27 94 % -- -- 06/29/24 0400 98/49 -- -- 69 18 96 % -- -- 06/29/24 0320 121/55 36.9 C (98.4 F) Oral 79 23 95 % -- 97.5 kg (214 lb 15.2 oz) 06/29/24 0245 114/58 -- -- 71 24 96 % -- -- 06/29/24 0234 114/58 37.1 C (98.7 F) Oral 70 22 96 % -- -- 06/29/24 0230 136/57 -- -- 73 25 97 % -- -- 06/29/24 0215 108/54 -- -- 67 23 96 % -- -- 06/29/24 0204 106/51 36.9 C (98.4 F) Oral 69 (!) 33 96 % -- -- 06/29/24 0157 131/56 -- -- 74 (!) 33 97 % -- -- 06/29/24153 -- -- -- -- -- -- 182.9 cm (6') 93 kg (205 lb) 06/29/24 0148 99/55 -- -- 71 (!) 30 98 % -- -- 06/29/24 0144 102/51 36.8 C (98.2 F) Axillary 72 18 98 % -- -- 06/29/24 0143 110/46 -- -- 73 (!) 27 97 % -- -- 06/29/24 0139 -- -- -- 74 (!) 26 97 % -- -- 06/29/248 103/54 -- -- 73 (!) 28 99 % -- -- 06/29/245 115/69 -- -- 75 -- 97 % -- -- 06/29/244 -- -- -- 96 -- 94 % -- -- Physical Exam Constitutional: Appearance: He is ill-appearing. HENT: Head: Normocephalic. Mouth/Throat: Mouth: Mucous membranes are moist. Eyes: Extraocular Movements: Extraocular movements intact. Cardiovascular: Rate and Rhythm: Normal rate. Pulses: Normal pulses. Pulmonary: Effort: Pulmonary effort is normal. Abdominal: General: Abdomen is flat. Palpations: Abdomen is soft. Musculoskeletal: Cervical back: Normal range of motion. Neurological: Mental Status: He is alert. LABS: Results from last 7 days Lab Units 06/29/24 01306/28/24211406/28/24 1901 WBC X10E9/L 10.6 -- 13.8* HEMOGLOBIN g/dL 6.9* 7.9* 8.6* HEMATOCRIT % 20.6* 23.3* 25.7* PLATELETS X10E9/L 186 -- 252 Results from last 7 days Lab Units 06/29/24 01306/28/24 1901 POTASSIUM mmol/L 3.6 3.8 CHLORIDE mmol/L 111* 108 CO2 mmol/L 21* 23 BUN mg/dL 16 20 CREATININE mg/dL 1.46* 1.90* GLUCOSE mg/dL 105* 137* CALCIUM mg/dL 6.9* 8.1* No results found for: PSA Additional Lab/culture results: none Urinalysis: Lab Results Component Value Date COLOR ALISSA (A) 06/29/2024 TURBIDITY CLEAR 06/29/2024 SPECIFICGRA 1.015 06/29/2024 NITRITE Negative 06/29/2024 PHURINE 5.5 06/29/2024 LEUKOCYTE Negative 06/29/2024 PROTEIN 50 (A) 06/29/2024 KETONES Negative 06/29/2024 UROBILINOGEN <1.1 06/29/2024 BLOODHGB Large (A) 06/29/2024 Imaging Results: CT abdomen and pelvis with contrast Order: [id number] Status: Final result Visible to patient: No (scheduled for 07/02/2024 8:00 PM) Next appt: None 0 Result Notes Details Reading Physician Reading Date Result Priority Fito Alexander MD [phone] 06/28/2024 STAT Narrative & Impression CT ABDOMEN AND PELVIS W CONT CLINICAL INFORMATION: Sepsis. COMPARISON: 06/26/24. PROCEDURE: Routine CT abdomen and pelvis obtained after the uncomplicated intravenous administration of contrast material. Multiplanar reformats obtained from the axial data. All CT scans at this facility use dose modulation, iterative reconstruction, and/or weight based dosing when appropriate to reduce radiation dose to as low as reasonably achievable. FINDINGS: Hepatobiliary: * No liver abnormalities. * No biliary dilatation. * Gallbladder visualized. Spleen: * Low-attenuation lesion in the spleen, difficult to characterize given its small size. Pancreas: * Normal. Genitourinary: * Adrenal glands are normal. * Right kidney demonstrates a nonspecific exophytic lesion measuring about 3.5 cm, 48 Hounsfield units. Follow-up imaging recommended to exclude renal cell carcinoma. * Extensive left-sided perinephric stranding. There are are several calcifications in the collecting system which may relate to recent stone fragmentation procedure with a large hematoma suspected measuring 13.5 x 7.0 cm in greatest dimension, some of which appears to be subcapsular, with intraluminal hyperattenuating foci possibly related to active extravasation of contrast. Moderate to severe left-sided collecting rotation, with a double-J stent, ureteral dilation, and several calculi in the distal left ureter, with a larger stone noted measuring about 1.2 cm or a grouping of very small stone debris present. * Bladder wall thickening possibly due to cystitis. There is a Jorgensen catheter with gas in the bladder. Gastrointestinal: * Fat-containing left inguinal hernia. No bowel obstruction. Appendix is normal. No dilated loops of small bowel are present. Aorta: * Atherosclerotic calcifications in the aorta and mesenteric vessels. Lymph nodes: * No lymphadenopathy. Soft tissues and osseous structures: * Degenerative changes. Old rib fractures. 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 IMPRESSION: * Postoperative changes in the left kidney, with hematoma possibly involving the subcapsular region of the kidney measuring 13.5 x 7.0 cm with small foci of hyperdense material, active extravasation of contrast in this region not excluded. Given fall a renal laceration would be difficult to exclude. * Hyperdense debris, stone fragments, and hydronephrosis left kidney noted with extensive perinephric stranding. The left ureter is markedly dilated where there is debris in the distal left ureter. * Bladder wall thickening, correlate for cystitis. * Indeterminate right renal mass, outpatient imaging recommended to exclude neoplasm. * Please see above for further details. Assessment and Plan Impression: Neptali Loyola is a 78 y.o. male who presents status post fall. Urology was consulted due to concern for renal laceration. Patient was large hematoma in the left kidney. This is new from CT scan observed on 06/26. He still has significant amounts of hydro with stent in place. He received when he was a packed red blood cells. Patient will be admitted to the ICU for further observation. Active Problem List Left renal hematoma Hematuria Hydronephrosis with stent in the placed Renal calculi Plan: No acute urological interventions planned at this time as patient is hemodynamically stable. Hemoglobin did come up to 8.1 after initial hemoglobin of 6.9. He is receiving 1 unit of blood at this time. If patient's creatinine does not trend in the right direction, we may consider exchange of ureteral stent for upsized versus nephrostomy tube insertion. Nephrostomy tube insertion may be difficult with hematoma and bleeding. Maintain current Jorgensen catheter in place. We may upsize to a three-way catheter and hand irrigate due to significant gross hematuria Please keep on bedrest We will check hemoglobin every 6 hours Hold all anticoagulation Monitor INR Monitor creatinine Monitor hemoglobin. Transfuse for less than 7 If patient becomes unstable, would recommend obtaining a CTA of the abdomen/pelvis to determine if any active extravasation. If positive, will need Interventional Radiology consultation for embolization Urology will continue to follow closely Qasim Hernandez MD Urology Resident, PGY-3 Cosigned by Alfred Valenzuela MD at 06/29/2024 4:17 PM EST Associated attestation - Alfred Valenzuela MD - 06/29/2024 4:17 PM EST Attending Attestation: I saw the patient. I performed the critical/archer portions of the service. I was directly involved in the management and treatment plan of the patient. I reviewed the resident's note. Additional Notes/Findings: Trend hgb, bedrest. Trend Cr. At this time, will monitor Cr, no intention to exchange ureteral stent unless Cr worsens significantly. Transfuse as necessary. Associated Order(s): IP CONSULT TO BLOW DOWN HELPER SICU Academic Critical Care CONSULTATION Name: Neptali Loyola Date: 06/29/2024 Length of Stay: 0 day(s) Chief Concern: Chief Complaint Patient presents with Trauma History of Present Illness Neptali Loyola is an 78 y.o. White or male presented to [facility] ED via EMS as a level 2 trauma after sustaining a fall from standing height. Patient was hypotensive upon arrival with SBP in the 80s and was started on IV fluids. Trauma level was upgraded to level 1 given hypotension. Patient reports he was at his son's home and fell forward in the bathroom after getting dizzy and stumbling. He denies hitting anything, however is unsure about loss of consciousness. Unable to give full details. Denies any acute pain including no abdominal pain, no chest pain, no pain in the head or extremities. Denies any shortness of breath, nausea, vomiting or fevers. Patient is on Eliquis and Plavix for history of AFib and CAD. Patient has reportedly been taking his medications per his son. At the outside ED, CT abdomen pelvis showed possible hematoma or active bleed concerning for renal laceration. Patient was given Kcentra and 1 unit PRBC for hypotension with improvement of blood pressure. He was transferred to surgical ICU for close monitoring. Upon arrival is noted hemodynamically stable, alert and oriented x3, only complaining of moderate pain left back. Past Medical History: Diagnosis Date Coronary artery disease Dementia ([facility]) Hemorrhoids Memory loss Myocardial infarction ([facility]) Urinary tract infection History reviewed. No pertinent surgical history. Review of Systems Constitutional: Negative for chills and fever. HENT: Negative for hearing loss and nosebleeds. Respiratory: Negative for chest tightness and shortness of breath. Cardiovascular: Negative for chest pain and palpitations. Gastrointestinal: Negative for abdominal pain, nausea and vomiting. Endocrine: Negative. Genitourinary: Negative. Skin: Negative for color change and wound. Neurological: Positive for dizziness. Negative for headaches. Psychiatric/Behavioral: Negative. No medications prior to admission. acetaminophen, 1,000 mg, intravenous, Q6H famotidine, 20 mg, intravenous, Q24H TYRON insulin lispro, 2-10 Units, subcutaneous, Q6H lidocaine, 1 patch, transdermal, Daily polyethylene glycol, 17 g, oral, Daily sennosides-docusate sodium, 2 tablet, oral, BID sodium chloride, 3 mL, intravenous, Q12H TYRON dextrose 5 % in water, 100 mL/hr dextrose 5 % in water, 100 mL/hr lactated ringer's, 100 mL/hr, Last Rate: 100 mL/hr (06/29/24 0336) sodium chloride 0.9 %, 10 mL/hr sodium chloride 0.9 %, 10 mL/hr sodium chloride 0.9 %, 10 mL/hr No Known Allergies History reviewed. No pertinent family history. Social History Socioeconomic History Marital status: Tobacco Use Smoking status: Former Current packs/day: 0.00 Types: Cigarettes Quit date: 2008 Years since quittin.1 Smokeless tobacco: Never Substance and Sexual Activity Alcohol use: Not Currently Drug use: Never Social Drivers of Health Financial Resource Strain: Patient Declined (04/24/2024) Received from [facility] Overall Financial Resource Strain (CARDIA) Difficulty of Paying Living Expenses: Patient declined Food Insecurity: No Food Insecurity (06/29/2024) Hunger Screening Food Insecurity - Worry: Never True Food Insecurity - Inability: Never True Transportation Needs: Patient Declined (04/24/2024) Received from [facility] TA - Transportation Lack of Transportation (Medical): Patient declined Lack of Transportation (Non-Medical): Patient declined Physical Activity: Patient Declined (04/24/2024) Received from [facility] Exercise Vital Sign Days of Exercise per Week: Patient declined Minutes of Exercise per Session: Patient declined Stress: Patient Declined (04/24/2024) Received from [facility] [employer] - Occupational Stress Questionnaire Feeling of Stress : Patient declined Social Connections: Patient Declined (04/24/2024) Received from [facility] Social Connection and Isolation Panel [NHANES] Frequency of Communication with Friends and Family: Patient declined Frequency of Social Gatherings with Friends and Family: Patient declined Attends Congregational Services: Patient declined Active Member of Clubs or Organizations: Patient declined Attends Club or Organization Meetings: Patient declined Marital Status: Patient declined Interpersonal Safety: Unknown (04/24/2024) Received from [facility] Humiliation, Afraid, Rape, and Kick questionnaire Fear of Current or Ex-Partner: Patient declined Emotionally Abused: Patient declined Sexually Abused: Patient declined Housing Instability: Patient Declined (04/24/2024) Received from [facility] Housing Stability Vital Sign Unable to Pay for Housing in the Last Year: Patient declined Number of Times Moved in the Last Year: 0 Homeless in the Last Year: Patient declined Vitals Temp: [36.8 C (98.2 F)-37.3 C (99.2 F)] 36.9 C (98.4 F) Pulse: [67-96] 79 Resp: [18-33] 23 BP: (77-136)/(44-69) 121/55 SpO2: [94 %-100 %] 95 % O2 Device: None (Room air) O2 Device: None (Room air) Intake/Output No intake/output data recorded. Physical Exam Physical Exam Constitutional: General: He is not in acute distress. Appearance: Normal appearance. He is normal weight. He is not ill-appearing or toxic-appearing. HENT: Head: Normocephalic and atraumatic. Right Ear: External ear normal. Left Ear: External ear normal. Mouth/Throat: Mouth: Mucous membranes are moist. Eyes: General: No scleral icterus. Conjunctiva/sclera: Conjunctivae normal. Pupils: Pupils are equal, round, and reactive to light. Cardiovascular: Rate and Rhythm: Normal rate and regular rhythm. Pulses: Normal pulses. Heart sounds: Normal heart sounds. Pulmonary: Effort: Pulmonary effort is normal. Breath sounds: Normal breath sounds. Abdominal: General: Abdomen is flat. Bowel sounds are normal. There is no distension. Palpations: Abdomen is soft. There is no mass. Tenderness: There is no abdominal tenderness. Musculoskeletal: General: No swelling, tenderness or deformity. Normal range of motion. Cervical back: Normal range of motion and neck supple. Skin: General: Skin is warm. Capillary Refill: Capillary refill takes less than 2 seconds. Coloration: Skin is not jaundiced or pale. Findings: No bruising. Neurological: General: No focal deficit present. Mental Status: He is alert and oriented to person, place, and time. Mental status is at baseline. Psychiatric: Mood and Affect: Mood normal. Thought Content: Thought content normal. Ventilator Invasive Hemodynamic [place] Labs Results from last 3 days Lab Units 06/29/2413606/28/24 1901 BUN mg/dL 16 20 CREATININE mg/dL 1.46* 1.90* POTASSIUM mmol/L 3.6 3.8 CO2 mmol/L 21* 23 CHLORIDE mmol/L 111* 108 MAGNESIUM mg/dL -- 1.9 AST U/L 15 25 ALT U/L 9 16 ALK PHOS U/L 63 70 LIPASE U/L 8* -- Results from last 3 days Lab Units 06/29/247 06/28/24 1901 INR 1.6* 3.1* PROTIME sec 18.1* 34.3* Results from last 3 days Lab Units 06/29/2413606/28/24211406/28/241900 WBC X10E9/L 10.6 -- 13.8* HEMOGLOBIN g/dL 6.9* 7.9* 8.6* HEMATOCRIT % 20.6* 23.3* 25.7* PLATELETS X10E9/L 186 -- 252 MCV fL 94 -- 94 MCH pg 31.4 -- 31.4 MCHC g/dL 33.4 -- 33.6 RDW % 14.5 -- 15.0 EOS ABS AUTO X10E9/L 0.0 -- 0.0 Microbiology Results Procedure Component Value Units Date/Time Urine culture [[id number]] Resulted: 06/29/24 0320 Specimen: Urine Updated: 06/29/24 0331 Blood culture, peripheral #2 [[id number]] Collected: 06/28/241906 Specimen: Blood, Peripheral Draw Updated: 06/28/241913 Blood culture, peripheral #1 [[id number]] Collected: 06/28/24 185 Specimen: Blood, Peripheral Draw Updated: 06/28/241913 SARS/FLU A+B/RSV by NAAT/Molecular (M4RT Collection Tube) [[id number]] Collected: 06/28/241809 Specimen: Nasopharynx Updated: 06/28/241946 FLU A PCR Negative FLU B PCR Negative RSV by PCR Negative SARS CoV 2 BY PCR Not Detected Results from last 7 days Lab Units 06/29/2413606/28/241900 GLUCOSE mg/dL 105* 137* Medications acetaminophen, 1,000 mg, intravenous, Q6H famotidine, 20 mg, intravenous, Q24H TYRON insulin lispro, 2-10 Units, subcutaneous, Q6H lidocaine, 1 patch, transdermal, Daily polyethylene glycol, 17 g, oral, Daily sennosides-docusate sodium, 2 tablet, oral, BID sodium chloride, 3 mL, intravenous, Q12H TYRON dextrose 5 % in water, 100 mL/hr dextrose 5 % in water, 100 mL/hr lactated ringer's, 100 mL/hr, Last Rate: 100 mL/hr (06/29/24335) sodium chloride 0.9 %, 10 mL/hr sodium chloride 0.9 %, 10 mL/hr sodium chloride 0.9 %, 10 mL/hr Microbiology Results Procedure Component Value Units Date/Time Urine culture [[id number]] Resulted: 06/29/24319 Specimen: Urine Updated: 06/29/24330 Blood culture, peripheral #2 [[id number]] Collected: 06/28/241906 Specimen: Blood, Peripheral Draw Updated: 06/28/241913 Blood culture, peripheral #1 [[id number]] Collected: 06/28/241858 Specimen: Blood, Peripheral Draw Updated: 06/28/241913 SARS/FLU A+B/RSV by NAAT/Molecular (M4RT Collection Tube) [[id number]] Collected: 06/28/241809 Specimen: Nasopharynx Updated: 06/28/241946 FLU A PCR Negative FLU B PCR Negative RSV by PCR Negative SARS CoV 2 BY PCR Not Detected Lines/Drains Peripheral IV 06/28/24 Posterior;Right Hand (Active) Line Status No blood return;Saline locked;Flushed;Alcohol sponge cap changed;Connections checked/tightened 06/29/24319 Site Assessment Clean;Dry;Intact 06/29/24319 Dressing Type Occlusive;Transparent 06/29/24319 Dressing Status Clean;Dry;Intact 06/29/24319 Specimen Obtained Yes 06/28/241804 Specimen Status Sent for analysis 06/28/241804 Amount Drawn (mL) 10 mL 06/28/241804 Peripheral IV 06/28/24 Left Antecubital (Active) Line Status Blood return noted;Flushed;Infusing;Connections checked/tightened 06/29/24319 Site Assessment Clean;Dry;Intact 06/29/24319 Dressing Type Occlusive;Transparent 06/29/24319 Dressing Status Clean;Dry;Intact 06/29/24319 Dressing Intervention Initial dressing 06/28/241999 Dressing Change Due (Non-Gauze) 07/05/24 06/28/241999 Urinary Catheter 06/28/24 Single lumen (Active) Catheter Status Patent 06/29/24319 Site Assessment Clean;Skin intact;Bleeding 06/29/24319 Collection Container Standard drainage bag/container 06/29/24319 Securement Method Securing device (Describe) 06/29/24319 Tamper Evident Seal Intact Yes 06/29/24319 Reason for Continuing Strict I&O in critically ill patient 06/29/24319 Urine Color Other (Comment) 06/29/24319 Urine Appearance Cloudy 06/29/24319 ACTIVE PROBLEM LIST: Fall from standing Left renal hematoma Hypotension Acute blood loss anemia Eliquis coagulopathy status post reversal with Kcentra CKD ASSESSMENT/PLAN: Neptali Loyola is a 78 y.o. year-old male s/p fall, has left renal hematoma. 1. Neuro: Sedation: None Analgesia: IV Tylenol, fentanyl, lidocaine patch 2. Cardiovascular: Cardiac Code Status: Full Code Continuous cardiac monitoring Scheduled Meds: None PRN Meds: None PMH: CAD, hypertension, hyperlipidemia, previous SC, AFib Home meds: Eliquis, Plavix 3. Resp: Breathing on: Room air Continuous pulse oximetry PMH: 4. GI: Diet: Adult diet NPO 5. Renal: Left renal hematoma Urology consult Electrolytes - daily electrolyte replacement as needed Daily BMP Lab Results Component Value Date GLU 105 (H) 06/29/2024 CALCIUM 6.9 (LL) 06/29/2024 SODIUM 140 06/29/2024 K 3.6 06/29/2024 CO2 21 (L) 06/29/2024 BUN 16 06/29/2024 CREATININE 1.46 (H) 06/29/2024 Phos/Mag/Tom Lab Results Component Value Date MG 1.9 06/28/2024 CALCIUM 6.9 (LL) 06/29/2024 Fluids Maintenance fluids: LR 100 mL/hr UOP: 24 hr UOP: Not available Intake/Output Summary (Last 24 hours) at 06/29/2024 0345 Last data filed at 06/29/2024 0140 Gross per 24 hour Intake -- Output 300 ml Net -300 ml PMH: CKD, nephrolithiasis PSH: Left Lithotripsy with stent placement 06/19/24. 6. Heme: Left renal hematoma Bedrest trend hemoglobin q.6 and transfuse as needed No anticoagulation at this time Reversal: Kcentra Daily CBC Lab Results Component Value Date HGB 6.9 (LL) 06/29/2024 HCT 20.6 (L) 06/29/2024 MCV 94 06/29/2024 PLT 186 06/29/2024 Coags Lab Results Component Value Date INR 1.6 (H) 06/29/2024 PROTIME 18.1 (H) 06/29/2024 Continue to monitor for signs of active bleeding with transfusion PRN for Hb < 7. Received 1 unit PRBC in trauma bay. 7. ID: Temp (24hrs), Av C (98.6 F), Min:36.8 C (98.2 F), Max:37.3 C (99.2 F) Daily CBC Lab Results Component Value Date WBC 10.6 06/29/2024 Antibiotics: Not indicated Continue to monitor for signs of active or worsening infection PMH: 8. Endo: Glucose Date Value Ref Range Status 06/29/2024 105 (H) 65 - 99 mg/dL Final Goal blood glucose <180 Insulin sliding scale as needed 9. MS: Bedrest for now. PT OT when cleared by trauma team. PMH: 10: Prophylaxis: DVT prophylaxis: SCD's while in bed, hold chemical prophylaxis. Resp prophylaxis: Not indicated Stress ulcer prophylaxis: Pepcid 11. Lines: Jorgensen catheter Peripheral IV Dispo: Critical, remain in SICU Fransico Villagomez MD General Surgery Resident, PGY-3 06/29/24 Cosigned by Ru Schwarz MD at 06/29/2024 10:06 AM EST Associated attestation - Ru Schwarz MD - 06/29/2024 10:06 AM EST Surgical Critical Care Attending: I spent 25 minutes providing critical care services and making complex medical decisions for this critically ill patient. This patient remains critically ill and requires constant monitoring and titration of care by critical care hand stamper. Failure to do so may result in further organ system failure with imminent deterioration or . This time includes examining the patient, reviewing patient data, discussions with other providers, and speaking to family members. This does not include time spent performing any procedures. ACTIVE PROBLEM LIST: Fall from standing Left renal hematoma Hypotension Acute blood loss anemia Eliquis coagulopathy status post reversal with Kcentra CKD Patient admitted for close cardiopulmonary monitoring. Urology to be consulted. Will follow with serial H&H RU SCHWARZ MD Trauma/Surgical Critical Care 06/29/2024 10:06 AM documented in this encounter [facility] 07-02-2024 Progress note Formatting of t his note is different from the original. Occupational Therapy OT Type of Visit: Medical deferral Reason For Medical Deferral: Activity limitations Activity Limitations: Strict bedrest cont as time allows once pt has increased activity orders [facility] 07-01-2024 Plan of care note Problem: Pain Goal: Patient goal is pain score less than 4, able to rest, and participant in treatment plan as appropriate Description: INTERVENTIONS: 1. Encourage patient or legal outbound telemarketing representative to report early pain and ask for pain medicine when needed 2. Assess pain using appropriate pain scale and include the scale used when documenting 3. Administer analgesics based on type and severity of pain and evaluate response within appropriate time frame 4. Implement non-pharmacological measures as appropriate and evaluate response 5. Consider cultural and social influences on pain and pain management 6. Notify LIP if interventions ineffective or patient reports new pain 7. Monitor vital signs including pulse ox, end-tidal CO2 based on pain intervention 8. Reassess pain per policy 9. Teach patient or legal outbound telemarketing representative interventions for comforting Outcome: Progressing Note: Evaluation of progress towards goal: patient does not complain of pain at this time, will continue to monitor Problem: Safety Goal: Patient will be injury free during hospitalization Description: INTERVENTIONS: 1. Assess patient's risk for falls and implement fall prevention plan of care per policy 2. Provide and maintain a safe environment 3. Proper use of double Identifiers 4. Medication administration using the 5 rights 5. Hand hygiene 6. Specimens are labeled at the bedside 7. Instruct patient/ patient outbound telemarketing representative about use of safety devices 8. Include patient/ patient outbound telemarketing representative in decisions related to safety Outcome: Progressing Note: Evaluation of progress towards goal: patient remains free from falls, bed alarm is on, patient encouraged to use call light Problem: Infection Goal: Absence of infection during hospitalization Description: INTERVENTIONS 1. Assess and monitor for signs and symptoms of infection. 2. Monitor lab/diagnostic results. 3. Monitor all insertion sites i.e., indwelling lines, tubes and drains. 4. Monitor endotracheal (as able) and nasal secretions for changes in amount and color. 5. Administer medications as ordered. 6. Instruct and encourage patient and family to use good hand hygiene technique. 7. Identify and instruct patient/patient outbound telemarketing representative in use of appropriate isolation precautions for identified infection/symptoms. 8. Provide and discuss with patient/patient outbound telemarketing representative on educational MDRO sheet. 9. Encourage and monitor nutritional status daily and consult bariatric nurse if indicated. 10. Implement neutropenic guidelines as needed. Outcome: Progressing Note: Evaluation of progress towards goal: patient remains afebrile, will continue to monitor labs Problem: Knowledge Deficit Goal: Patient/patient outbound telemarketing representative demonstrates understanding of disease process, treatment plan, medications, and discharge instructions Description: INTERVENTIONS 1. Complete learning assessment and assess knowledge base 2. Provide teaching at level of understanding 3. Provide teaching via preferred learning method(s) Outcome: Progressing Note: Evaluation of progress towards goal: patient needs reinforced education on incentive spirometer Problem: Discharge Planning Goal: Discharge to post-acute care, other facility, or home with appropriate resources Description: Patient's goal is: INTERVENTIONS 1. Conduct assessment to determine patient/family and health care team treatment goals, and need for post-acute services based on payer coverage, community resources, and patient preferences, and barriers to discharge 2. Coordinate with Social work, Care Navigation, and Utilization Review to arrange appropriate level of services according to patient's needs based on patient preference and payer coverage in collaboration with the physician and health care team 3. Address psychosocial, clinical, and financial barriers to discharge as identified in assessment in conjunction with the patient/family and health care team 4. Consult appropriate ancillary services (i.e.. PT/OT/ST, etc) as needed 5. Communicate with and update the patient/family, physician, and health care team regarding progress on the discharge plan 6. Identify discharge learning needs (meds, wound care, etc). 7. Arrange for needed discharge transportation as appropriate Outcome: Progressing Note: Evaluation of progress towards goal: planning continues Problem: Potential for Compromised Skin Integrity Goal: Skin integrity is maintained or improved Description: Patient's goal is: INTERVENTIONS 1. Perform initial skin assessment on admission and as needed 2. Turn patient every 2 hours and PRN 3. Relieve pressure to bony prominences 4. Avoid shearing 5. Keep skin clean and dry 6. Alternate a full bath with partial baths for elderly 7. Apply lotion/moisturizer on skin 8. Monitor patient's hygiene practices 9. Float heels 10. Collaborate with interdisciplinary team and initiate plans and interventions as needed Outcome: Progressing Note: Evaluation of progress towards goal: skin remains intact, no new breakdowns or tears Problem: Urinary Incontinence Goal: Perineal skin integrity is maintained or improved Description: INTERVENTIONS 1. Assess genitourinary system, perineal skin, labs (urinalysis), and history of incontinence to include past management, aggravating, and alleviating factors 2. Keep skin clean and dry 3. Apply skin protectant 4. Develop skin care regimen 5. Provide privacy when changing patients incontinence device to maintain their dignity 6. Consider placing an indwelling catheter 7. Collaborate with interdisciplinary team and initiate plans and interventions as needed Outcome: Progressing Note: Evaluation of progress towards goal: jorgensen remains in place, skin remains intact Problem: Moderate - High Risk Fall Score Description: Issa Fall Score of =/> 25 or indicated by [facility] Assessment Goal: Patient should be free from fall Description: Interventions: 1. [place] to environment 2. Hourly rounds addressing the 4 P's (Pain, Positioning, Possessions, Potty) 3. Clear area of hazards (spills, clutter, electrical cords, unnecessary equipment) 4. Place equipment (bed & TV controls, call light, phone, urinal) within reach 5. Encourage patient to wear glasses and hearing aides as appropriate 6. Maintain bed in lowest position 7. Lock wheels on bed/wheelchair 8. Provide adequate lighting, including night light 9. Assess need for additional bedding, food/fluids, pain med's prior to sleep/routinely 10. Provide gripper slippers or personal non-skid footwear 11. Teach patient and patient outbound telemarketing representative to maintain environment for safety and engage in all aspects of fall prevention program 12. Remind patient to call for help before getting out of bed 13. Initiate bed/chair/exit alarms supportive devices as appropriate, (chair wedge, no-skid floor mat, raised edge mattress, hip protectors) 14. Locate patient bed assignment for optimal visualization 15. Evaluate and identify Safe Patient Handling Equipment needs 16. Provide supervision when out of bed or chair 17. Utilize gait belt as needed to assist with ambulation 18. Place adaptive equipment (cane, walker) within reach 19. Request patient outbound telemarketing representative bring adaptive equipment/mobility aids from home or obtain and provide as needed 20. Consult pharmacy regarding effects of med's affecting mobility, cognition, and alternatives 21. Obtain physician order for PT if risk factors associated with mobility are present 22. Obtain physician order for OT as appropriate 23. Utilize diversional activities 24. Educate patient and patient outbound telemarketing representative how to maintain a safe environment during visitation times (notify nurse prior to leaving bedside) 25. Consider appropriateness of medical or non-certified medical coding specialist 26. Set up voiding schedule as appropriate (every 2 hours) Outcome: Progressing Note: Evaluation of progress towards goal: patient remains free from falls [facility] 07-01-2024 Hospital Discharge instructions Denisha Thurston - 07/01/2024 4:48 PM EST YOUR SCHEDULED APPOINTMENTS Please make note of this in your schedule as to not miss or call to reschedule. Thank you! MIGUEL GARCIA APRN-LIONEL PCP - General Family Medicine phone [phone] fax [phone] [address] [facility] [id number] Next Steps: Go on 07/08/2024 Instructions: 3:00 pm Pt. should bring the following to appointment; Discharge paperwork Picture ID, Insurance card, co-pay, and all current medications in their bottles. Please provide a 24 hour notice for cancellation. Failure to do so will result in the practice declining to see pt. in the future. If you have insurance copay you must bring with you to the appointment. Please arrive about 15 minutes prior to appointment for check-in/registration. For NEW PATIENT APPOINTMENTS, please arrive 30 minutes early to complete new patient paperwork. For NEW patients, MD will not prescribe senior living pain medication. documented in this encounter [employer] 07-01-2024 Progress note Formatting of t his note is different from the original. Images from the original note were not included. DISCHARGE PLANNING NOTE Internal Recruiter met with patient, introduced self, and explained role. Patient educated on safe discharge plan. Pt admitted 06/29/2024 with Acute blood loss anemia [D62] Fall in home, initial encounter [W19.XXXA, Y92.009] per chart review. Consults: Trauma and Urology Discharge Barriers per Daily Transition Rounds and chart review: PT/OT eval, bilat duplex, oxygen, H&H q12 Past Medical History: Diagnosis Date Cardiac arrest ([facility]) 02/2024 Coronary artery disease Dementia ([facility]) Fall in home, initial encounter 06/29/2024 Hemorrhoids Hyperlipidemia Hypertension Kidney stone Memory loss Myocardial infarction ([facility]) Urinary tract infection Prior to admission patient was living with family and partial assistance. Medical equipment patient used prior to admission includes: Cane, Nebulizer, and Shower Chair. Patient denies need for transportation/ food/ prescription medication assistance resources. Patient currently lives with son and daughter in law. His house is 2 story and has 2 steps into house. Has a shower chair and cane and nebulizer. Has someone come visit at his sons home but unsure of who. At his home its a one level and has 2 steps into home. PCP: REINALDO CHAKRABORTY Pharmacy: [facility] PCP and pharmacy confirmed with patient. CN offered to assist with follow up appointment arrangements; patient declines - states will self-schedule follow up appointments son and daughter in law do for him REINALDO CHAKRABORTY added to Follow Up Providers for Summary of Care communication. Per patient self-report: Drug use: denies Smoking: denies ETOH Use: denies Current discharge plan is: dc to son and daughter in laws house Sons address is [address] [place] [address] Services Requested: Services Requested Patient expects to be discharged to:: home Discharge Disposition: Home with self care (lives with son) Goals: Goals (pt-stated) Evaluation of progress towards goal: home with son and daughter in law Will continue to follow as plan of care develops. CN discussed benefits and importance of medication compliance and follow ups. Please feel free to reach out for any discharge planning questions. - Julisa Del Toro RN 07/01/24 2:01 PM [facility] 07-01-2024 Plan of care note Problem: Pain Goal: Patient goal is pain score less than 4, able to rest, and participant in treatment plan as appropriate Description: INTERVENTIONS: 1. Encourage patient or legal outbound telemarketing representative to report early pain and ask for pain medicine when needed 2. Assess pain using appropriate pain scale and include the scale used when documenting 3. Administer analgesics based on type and severity of pain and evaluate response within appropriate time frame 4. Implement non-pharmacological measures as appropriate and evaluate response 5. Consider cultural and social influences on pain and pain management 6. Notify LIP if interventions ineffective or patient reports new pain 7. Monitor vital signs including pulse ox, end-tidal CO2 based on pain intervention 8. Reassess pain per policy 9. Teach patient or legal outbound telemarketing representative interventions for comforting Outcome: Progressing Note: Evaluation of progress towards goal: Patient verbalizes pain on 0-10 scale. PRN analgesic medication available and given as needed. with pain reassessed per policy. Comfort measures in place and hourly rounding maintained Problem: Safety Goal: Patient will be injury free during hospitalization Description: INTERVENTIONS: 1. Assess patient's risk for falls and implement fall prevention plan of care per policy 2. Provide and maintain a safe environment 3. Proper use of double Identifiers 4. Medication administration using the 5 rights 5. Hand hygiene 6. Specimens are labeled at the bedside 7. Instruct patient/ patient outbound telemarketing representative about use of safety devices 8. Include patient/ patient outbound telemarketing representative in decisions related to safety Outcome: Progressing Note: Evaluation of progress towards goal: Patient remains free from falls and injury, fall risk ID band on, fall prevention education and precautions provided and in place. Hourly rounds maintained, call light in reach, and safety measures in place. Problem: Infection Goal: Absence of infection during hospitalization Description: INTERVENTIONS 1. Assess and monitor for signs and symptoms of infection. 2. Monitor lab/diagnostic results. 3. Monitor all insertion sites i.e., indwelling lines, tubes and drains. 4. Monitor endotracheal (as able) and nasal secretions for changes in amount and color. 5. Administer medications as ordered. 6. Instruct and encourage patient and family to use good hand hygiene technique. 7. Identify and instruct patient/patient outbound telemarketing representative in use of appropriate isolation precautions for identified infection/symptoms. 8. Provide and discuss with patient/patient outbound telemarketing representative on educational MDRO sheet. 9. Encourage and monitor nutritional status daily and consult bariatric nurse if indicated. 10. Implement neutropenic guidelines as needed. Outcome: Progressing Note: Evaluation of progress towards goal: Problem: Knowledge Deficit Goal: Patient/patient outbound telemarketing representative demonstrates understanding of disease process, treatment plan, medications, and discharge instructions Description: INTERVENTIONS 1. Complete learning assessment and assess knowledge base 2. Provide teaching at level of understanding 3. Provide teaching via preferred learning method(s) Outcome: Progressing Note: Evaluation of progress towards goal: Explanation of plan of care provided to Patient. Patient verbalizes understanding of plan of care. Re-enforcement provided as needed. Will continue to monitor for understanding. Problem: Discharge Planning Goal: Discharge to post-acute care, other facility, or home with appropriate resources Description: Patient's goal is: INTERVENTIONS 1. Conduct assessment to determine patient/family and health care team treatment goals, and need for post-acute services based on payer coverage, community resources, and patient preferences, and barriers to discharge 2. Coordinate with Social work, Care Navigation, and Utilization Review to arrange appropriate level of services according to patient's needs based on patient preference and payer coverage in collaboration with the physician and health care team 3. Address psychosocial, clinical, and financial barriers to discharge as identified in assessment in conjunction with the patient/family and health care team 4. Consult appropriate ancillary services (i.e.. PT/OT/ST, etc) as needed 5. Communicate with and update the patient/family, physician, and health care team regarding progress on the discharge plan 6. Identify discharge learning needs (meds, wound care, etc). 7. Arrange for needed discharge transportation as appropriate Outcome: Progressing Note: Evaluation of progress towards goal: Discharge plan on-going and reviewed daily during daily transition rounds with ancillary services. Problem: Potential for Compromised Skin Integrity Goal: Skin integrity is maintained or improved Description: Patient's goal is: INTERVENTIONS 1. Perform initial skin assessment on admission and as needed 2. Turn patient every 2 hours and PRN 3. Relieve pressure to bony prominences 4. Avoid shearing 5. Keep skin clean and dry 6. Alternate a full bath with partial baths for elderly 7. Apply lotion/moisturizer on skin 8. Monitor patient's hygiene practices 9. Float heels 10. Collaborate with interdisciplinary team and initiate plans and interventions as needed Outcome: Progressing Note: Evaluation of progress towards goal: Discharge plan on-going and reviewed daily during daily transition rounds with ancillary services. Goal: Patient's nutritional intake is adequate Description: Patient's goal is: INTERVENTIONS 1. Assess and monitor food intake and supplements, patient food preferences, nausea, vomiting, labs, oral cavity (gums, teeth, tongue, mucosa), proper denture fit, and cultural beliefs 2. Monitor for signs of hypoglycemia and hyperglycemia 3. Collaborate with interdisciplinary team and initiate plan and interventions as ordered 4. Monitor patient's weight 5. Assist patient with meals/food selection 6. Assist patient with eating 7. Allow adequate time for meals 8. Provide pleasant environment during mealtime 9. Increase social contact during mealtimes 10. Plan activities to conserve energy 11. Encourage/perform oral hygiene as appropriate 12. Encourage patient to take dietary supplement as ordered 13. Collaborate with clinical bariatric nurse 14. Include patient/ patient's outbound telemarketing representative in decisions related to nutrition Outcome: Progressing Note: Evaluation of progress towards goal: Problem: Urinary Incontinence Goal: Perineal skin integrity is maintained or improved Description: INTERVENTIONS 1. Assess genitourinary system, perineal skin, labs (urinalysis), and history of incontinence to include past management, aggravating, and alleviating factors 2. Keep skin clean and dry 3. Apply skin protectant 4. Develop skin care regimen 5. Provide privacy when changing patients incontinence device to maintain their dignity 6. Consider placing an indwelling catheter 7. Collaborate with interdisciplinary team and initiate plans and interventions as needed Outcome: Progressing Note: Evaluation of progress towards goal: Problem: Moderate - High Risk Fall Score Description: Issa Fall Score of =/> 25 or indicated by [facility] Assessment Goal: Patient should be free from fall Description: Interventions: 1. [place] to environment 2. Hourly rounds addressing the 4 P's (Pain, Positioning, Possessions, Potty) 3. Clear area of hazards (spills, clutter, electrical cords, unnecessary equipment) 4. Place equipment (bed & TV controls, call light, phone, urinal) within reach 5. Encourage patient to wear glasses and hearing aides as appropriate 6. Maintain bed in lowest position 7. Lock wheels on bed/wheelchair 8. Provide adequate lighting, including night light 9. Assess need for additional bedding, food/fluids, pain med's prior to sleep/routinely 10. Provide gripper slippers or personal non-skid footwear 11. Teach patient and patient outbound telemarketing representative to maintain environment for safety and engage in all aspects of fall prevention program 12. Remind patient to call for help before getting out of bed 13. Initiate bed/chair/exit alarms supportive devices as appropriate, (chair wedge, no-skid floor mat, raised edge mattress, hip protectors) 14. Locate patient bed assignment for optimal visualization 15. Evaluate and identify Safe Patient Handling Equipment needs 16. Provide supervision when out of bed or chair 17. Utilize gait belt as needed to assist with ambulation 18. Place adaptive equipment (cane, walker) within reach 19. Request patient outbound telemarketing representative bring adaptive equipment/mobility aids from home or obtain and provide as needed 20. Consult pharmacy regarding effects of med's affecting mobility, cognition, and alternatives 21. Obtain physician order for PT if risk factors associated with mobility are present 22. Obtain physician order for OT as appropriate 23. Utilize diversional activities 24. Educate patient and patient outbound telemarketing representative how to maintain a safe environment during visitation times (notify nurse prior to leaving bedside) 25. Consider appropriateness of medical or non-certified medical coding specialist 26. Set up voiding schedule as appropriate (every 2 hours) Outcome: Progressing Note: Evaluation of progress towards goal: Patient remains free from falls and injury, fall risk ID band on, fall prevention education and precautions provided and in place. Hourly rounds maintained, call light in reach, and safety measures in place. Additional Comments: [facility] [employer] 07-01-2024 Progress note Formatting of t his note is different from the original. Physical Therapy PT Type of Visit: Medical deferral Reason For Medical Deferral: RN deems inappropriate, Activity limitations RN Deems Inappropriate: Failed MOVES safety screen Activity Limitations: Strict bedrest [facility] [employer] [facility] 07-01-2024 Progress note Formatting of t his note is different from the original. Occupational Therapy OT Type of Visit: Medical deferral Reason For Medical Deferral: Activity limitations Activity Limitations: Strict bedrest [facility] [employer] [facility] 06-30-2024 Plan of care note Problem: Pain Goal: Patient goal is pain score less than 4, able to rest, and participant in treatment plan as appropriate Description: INTERVENTIONS: 1. Encourage patient or legal outbound telemarketing representative to report early pain and ask for pain medicine when needed 2. Assess pain using appropriate pain scale and include the scale used when documenting 3. Administer analgesics based on type and severity of pain and evaluate response within appropriate time frame 4. Implement non-pharmacological measures as appropriate and evaluate response 5. Consider cultural and social influences on pain and pain management 6. Notify LIP if interventions ineffective or patient reports new pain 7. Monitor vital signs including pulse ox, end-tidal CO2 based on pain intervention 8. Reassess pain per policy 9. Teach patient or legal outbound telemarketing representative interventions for comforting Outcome: Progressing Note: Evaluation of progress towards goal: Patient goal is __0___ score for pain. Patient assessed for pain with hourly rounding. Pain managed with PRN pain medications as per orders, and additionally with non-medication interventions such as repositioning and relaxation. Patient reports satisfaction with current pain management regimen Problem: Safety Goal: Patient will be injury free during hospitalization Description: INTERVENTIONS: 1. Assess patient's risk for falls and implement fall prevention plan of care per policy 2. Provide and maintain a safe environment 3. Proper use of double Identifiers 4. Medication administration using the 5 rights 5. Hand hygiene 6. Specimens are labeled at the bedside 7. Instruct patient/ patient outbound telemarketing representative about use of safety devices 8. Include patient/ patient outbound telemarketing representative in decisions related to safety Outcome: Progressing Note: Evaluation of progress towards goal: Patient assessed for appropriate safe patient handling equipment, and equipment used as per policy. Patient's environment is safely maintained. Medications passed as per policy. Five rights used for all interventions. No falls or injury during this stay. Problem: Urinary Incontinence Goal: Perineal skin integrity is maintained or improved Description: INTERVENTIONS 1. Assess genitourinary system, perineal skin, labs (urinalysis), and history of incontinence to include past management, aggravating, and alleviating factors 2. Keep skin clean and dry 3. Apply skin protectant 4. Develop skin care regimen 5. Provide privacy when changing patients incontinence device to maintain their dignity 6. Consider placing an indwelling catheter 7. Collaborate with interdisciplinary team and initiate plans and interventions as needed Outcome: Progressing Note: Evaluation of progress towards goal: Pt per jorgensen catheter. Jorgensen care every shift provided with CHG impregnated wipes [facility] 06-30-2024 Progress note Formatting of t his note is different from the original. Occupational Therapy OT Type of Visit: Medical deferral Reason For Medical Deferral: Activity limitations RN Deems Inappropriate: Failed MOVES safety screen Activity Limitations: Strict bedrest [facility] 06-30-2024 Progress note Formatting of t his note is different from the original. Physical Therapy PT Type of Visit: Medical deferral Reason For Medical Deferral: Activity limitations RN [place]ems Inappropriate: Failed MOVES safety screen Activity Limitations: Strict bedrest (attempted to see pt for PT initial eval, hold PT a this time d/t failed safety screen with strict bedrest orders; attempt PT as appropriate) [facility] 06-30-2024 Plan of care note Problem: Pain Goal: Patient goal is pain score less than 4, able to rest, and participant in treatment plan as appropriate Description: INTERVENTIONS: 1. Encourage patient or legal outbound telemarketing representative to report early pain and ask for pain medicine when needed 2. Assess pain using appropriate pain scale and include the scale used when documenting 3. Administer analgesics based on type and severity of pain and evaluate response within appropriate time frame 4. Implement non-pharmacological measures as appropriate and evaluate response 5. Consider cultural and social influences on pain and pain management 6. Notify LIP if interventions ineffective or patient reports new pain 7. Monitor vital signs including pulse ox, end-tidal CO2 based on pain intervention 8. Reassess pain per policy 9. Teach patient or legal outbound telemarketing representative interventions for comforting Outcome: Progressing Note: Evaluation of progress towards goal: Patient goal is __0___ score for pain. Patient assessed for pain with hourly rounding. Pain managed with PRN pain medications as per orders, and additionally with non-medication interventions such as repositioning and relaxation. Patient reports satisfaction with current pain management regimen Problem: Safety Goal: Patient will be injury free during hospitalization Description: INTERVENTIONS: 1. Assess patient's risk for falls and implement fall prevention plan of care per policy 2. Provide and maintain a safe environment 3. Proper use of double Identifiers 4. Medication administration using the 5 rights 5. Hand hygiene 6. Specimens are labeled at the bedside 7. Instruct patient/ patient outbound telemarketing representative about use of safety devices 8. Include patient/ patient outbound telemarketing representative in decisions related to safety Outcome: Progressing Note: Evaluation of progress towards goal: Patient assessed for appropriate safe patient handling equipment, and equipment used as per policy. Patient's environment is safely maintained. Medications passed as per policy. Five rights used for all interventions. No falls or injury during this stay. Problem: Urinary Incontinence Goal: Perineal skin integrity is maintained or improved Description: INTERVENTIONS 1. Assess genitourinary system, perineal skin, labs (urinalysis), and history of incontinence to include past management, aggravating, and alleviating factors 2. Keep skin clean and dry 3. Apply skin protectant 4. Develop skin care regimen 5. Provide privacy when changing patients incontinence device to maintain their dignity 6. Consider placing an indwelling catheter 7. Collaborate with interdisciplinary team and initiate plans and interventions as needed Outcome: Progressing Note: Evaluation of progress towards goal: Pt per jorgensen catheter. Jorgensen care every shift provided with CHG impregnated wipes [facility] [employer] 06-29-2024 Progress note Formatting of t his note is different from the original. Query Response Note AUTOMATED QUERY TEXT: Stage of Chronic Kidney Disease: This query seeks further clarification of documentation to reflect all conditions that you are monitoring, evaluating, treating or that extend hospitalization or utilize additional resources. Please utilize your independent clinical judgment when addressing the question(s) below. Please provide further specificity, if known. Clinical indicators include: bun, creatinine, ckd, acute on chronic kidney disease, bnp Options provided: -- Chronic kidney disease stage 1 -- Chronic kidney disease stage 2 -- Chronic kidney disease stage 3 -- Chronic kidney disease stage 3a -- Chronic kidney disease stage 3b -- Chronic kidney disease stage 4 -- Chronic kidney disease stage 5 -- Chronic kidney disease stage 5, requiring dialysis -- End stage renal disease -- Other - I will add my own diagnosis -- Dismiss - Not applicable / Not valid AUTOMATED QUERY RESPONSE TEXT: The patient has chronic kidney disease stage 3a. Electronically signed by: Shar Schaffer MD 06/29/2024 12:43 PM [facility] Progress note Formatting of t his note is different from the original. Occupational Therapy OT Type of Visit: Medical deferral Reason For Medical Deferral: Activity limitations RN Deems Inappropriate: Failed MOVES safety screen Activity Limitations: Strict bedrest [facility] [employer] [facility] 06-29-2024 Progress note Formatting of t his note is different from the original. Physical Therapy PT Type of Visit: Medical deferral Reason For Medical Deferral: RN deems inappropriate, Activity limitations RN Deems Inappropriate: Failed MOVES safety screen Activity Limitations: Strict bedrest [facility] 06-29-2024 Procedure note Procedure(s): INSERT ARTERIAL LINE Procedure Note - Arterial Line Pre-Procedure Diagnosis: Hypotension Post-Procedure Diagnosis: Same Procedure: Left radial arterial line Surgeon: Dr. Ru Schwarz Resident: Miah Sharp, PGY-2 Indication: Neptali Loyola is a 78 y.o. male with the need for invasive hemodynamic monitoring. Anesthesia: Local (1% Lidocaine) EBL: Minimal Complications: None immediate. Ultrasound guidance used: yes Consent: Detailed explanation of the procedure, treatment options, risks including but not limited to infection and bleeding, and benefits were explained to the patient's family. A verbal informed consent was obtained. Technique: The left wrist was prepped with 2% chlorhexidine and draped in the usual fashion. 1% lidocaine was administered subcutaneously for local anesthesia. The left radial artery was carefully palpated and identified under ultrasound guidance.The needle was inserted with appropriate pulsatile, bright red arterial back-bleeding. The guidewire was inserted into the access needle and advanced without difficulty. The access needle was then removed and the catheter was threaded over the guidewire without complication. The guidewire was removed and the arterial catheter was connected to the arterial pressure monitoring system and good waveform was seen on the monitor. The catheter was stabilized and sutured to the skin with 2-0 silk. A sterile dressing was placed over the catheter and the drapes were removed. The patient tolerated the procedure well and there were no complications. Dr. Schwarz was immediately available for the entirety of the procedure. Miah Sharp MD General Surgery Resident, PGY-2 Cosigned by Ru Schwarz MD at 06/29/2024 7:42 AM EST Associated attestation - Ru Schwarz MD - 06/29/2024 7:42 AM EST I was present for the archer components of the procedure. [employer] Work Phone: 06-29-2024 Procedure note Procedure(s): INSERT ARTERIAL LINE Procedure Note - Arterial Line Pre-Procedure Diagnosis: Hypotension Post-Procedure Diagnosis: Same Procedure: Left radial arterial line Surgeon: Dr. Ru Schwarz Resident: Miah Sharp, PGY-2 Indication: Neptali Loyola is a 78 y.o. male with the need for invasive hemodynamic monitoring. Anesthesia: Local (1% Lidocaine) EBL: Minimal Complications: None immediate. Ultrasound guidance used: yes Consent: Detailed explanation of the procedure, treatment options, risks including but not limited to infection and bleeding, and benefits were explained to the patient's family. A verbal informed consent was obtained. Technique: The left wrist was prepped with 2% chlorhexidine and draped in the usual fashion. 1% lidocaine was administered subcutaneously for local anesthesia. The left radial artery was carefully palpated and identified under ultrasound guidance.The needle was inserted with appropriate pulsatile, bright red arterial back-bleeding. The guidewire was inserted into the access needle and advanced without difficulty. The access needle was then removed and the catheter was threaded over the guidewire without complication. The guidewire was removed and the arterial catheter was connected to the arterial pressure monitoring system and good waveform was seen on the monitor. The catheter was stabilized and sutured to the skin with 2-0 silk. A sterile dressing was placed over the catheter and the drapes were removed. The patient tolerated the procedure well and there were no complications. Dr. Schwarz was immediately available for the entirety of the procedure. Miah Sharp MD General Surgery Resident, PGY-2 Cosigned by Ru Schwarz MD at 06/29/2024 7:42 AM EST Associated attestation - Ru Schwarz MD - 06/29/2024 7:42 AM EST I was present for the archer components of the procedure. documented in this encounter [facility] 06-29-2024 Consult note Associated Order (s): IP CONSULT TO UROLOGY Images from the original note were not included. Urology Consult Note Patient: Neptali Loyola Date of : 1945 ATTENDING: Dr. Valenzuela CHIEF COMPLAINT: Renal hematoma HISTORY OF PRESENT ILLNESS: The patient is a 78 y.o. male who presents to the hospital due to status post fall. Urology was consulted due to above findings. Patient underwent a ureteroscopy with holmium laser lithotripsy on 06/19. He was ultimately discharged home. Patient was stent left in place and was ultimately planning for follow up outpatient. Patient presented back to hospital on 06/26 due to worsening weakness. On CT scan was found to have some postsurgical changes. Dilation of the ureter. Creatinine was normal. No hematoma found. He was ultimately discharged after hydration and patient was feeling better. Patient reportedly overnight experienced a fall at home per son. He presented to [facility]. We will CT scan showed large perinephric hematoma. Hemoglobin was low at 6.9. Similar post surgical changes were seen. Stent remains in place. Multiple stone fragments observe. Ureter continues to be dilated all the way down to the bladder. There also seems to be either contrast or stone fragments in the distal ureter. Patient's hemoglobin was 6.9. Repeat hemoglobin was 8.1. He is receiving 1 unit of blood at this time. Creatinine mildly elevated to 1.5 from 1.9 on arrival. His INR was significantly elevated at 3.1. He did receive a dose of Kcentra and this was brought down to 1.6. Patient's old records, notes and chart reviewed and summarized above. Past Medical History: Past Medical History: Diagnosis Date Coronary artery disease Dementia ([facility]) Hemorrhoids Memory loss Myocardial infarction ([facility]) Urinary tract infection Past Surgical History: History reviewed. No pertinent surgical history. Medications: Scheduled Meds: acetaminophen, 1,000 mg, intravenous, Q6H famotidine, 20 mg, intravenous, Q24H TYRON insulin lispro, 2-10 Units, subcutaneous, Q6H lidocaine, 1 patch, transdermal, Daily polyethylene glycol, 17 g, oral, Daily sennosides-docusate sodium, 2 tablet, oral, BID sodium chloride, 3 mL, intravenous, Q12H [facility] Continuous Infusions: dextrose 5 % in water, 100 mL/hr dextrose 5 % in water, 100 mL/hr lactated ringer's, 100 mL/hr, Last Rate: 100 mL/hr (06/29/24 0336) sodium chloride 0.9 %, 10 mL/hr sodium chloride 0.9 %, 10 mL/hr sodium chloride 0.9 %, 10 mL/hr PRN Meds:. calcium gluconate OR calcium gluconate OR calcium gluconate dextrose dextrose 5 % in water dextrose 5 % in water dextrose 50 % in water (D50W) fentaNYL glucagon (human recombinant) magnesium sulfate OR magnesium sulfate ondansetron potassium chloride OR potassium chloride potassium chloride in water OR potassium chloride in water sodium phosphate IV OR sodium phosphate IV - central line OR sod phos di, mono-K phos mono sodium chloride sodium chloride 0.9 % sodium chloride 0.9 % sodium chloride 0.9 % Allergies: Patient has no known allergies. Social History: Social History Socioeconomic History Marital status: Spouse name: Not on file Number of children: Not on file Years of education: Not on file Highest education level: Not on file Occupational History Not on file Tobacco Use Smoking status: Former Current packs/day: 0.00 Types: Cigarettes Quit date: 2008 Years since quittin.1 Smokeless tobacco: Never Substance and Sexual Activity Alcohol use: Not Currently Drug use: Never Sexual activity: Not on file Other Topics Concern Not on file Social History Narrative Not on file Social Drivers of Health Financial Resource Strain: Patient Declined (04/24/2024) Received from [facility] Overall Financial Resource Strain (CARDIA) Difficulty of Paying Living Expenses: Patient declined Food Insecurity: No Food Insecurity (06/29/2024) Hunger Screening Food Insecurity - Worry: Never True Food Insecurity - Inability: Never True Transportation Needs: Patient Declined (04/24/2024) Received from [facility] TA - Transportation Lack of Transportation (Medical): Patient declined Lack of Transportation (Non-Medical): Patient declined Physical Activity: Patient Declined (04/24/2024) Received from [facility] Exercise Vital Sign Days of Exercise per Week: Patient declined Minutes of Exercise per Session: Patient declined Stress: Patient Declined (04/24/2024) Received from [facility] [employer] - Occupational Stress Questionnaire Feeling of Stress : Patient declined Social Connections: Patient Declined (04/24/2024) Received from [facility] Social Connection and Isolation Panel [NHANES] Frequency of Communication with Friends and Family: Patient declined Frequency of Social Gatherings with Friends and Family: Patient declined Attends Congregational Services: Patient declined Active Member of Clubs or Organizations: Patient declined Attends Club or Organization Meetings: Patient declined Marital Status: Patient declined Interpersonal Safety: Unknown (04/24/2024) Received from [facility] Humiliation, Afraid, Rape, and Kick questionnaire Fear of Current or Ex-Partner: Patient declined Emotionally Abused: Patient declined Physically Abused: Not on file Sexually Abused: Patient declined Housing Instability: Patient Declined (04/24/2024) Received from [facility] Housing Stability Vital Sign Unable to Pay for Housing in the Last Year: Patient declined Number of Times Moved in the Last Year: 0 Homeless in the Last Year: Patient declined Family History: History reviewed. No pertinent family history. REVIEW OF SYSTEMS: Review of Systems Constitutional: Positive for chills, activity change and fatigue. Respiratory: Negative for apnea, choking, shortness of breath and stridor. Cardiovascular: Negative for leg swelling and chest discomfort. Gastrointestinal: Negative for constipation, blood in stool, abdominal distention and black tarry stool. Genitourinary: Positive for hematuria. Negative for urgency, difficulty urinating and testicular pain. Physical Exam: This a 78 y.o. patient Patient Vitals for the past 24 hrs: BP Temp Temp src Pulse Resp SpO2 Height Weight 06/29/24 0415 (!) 87/69 -- -- 67 (!) 27 94 % -- -- 06/29/24 0400 98/49 -- -- 69 18 96 % -- -- 06/29/24 0320 121/55 36.9 C (98.4 F) Oral 79 23 95 % -- 97.5 kg (214 lb 15.2 oz) 06/29/24 0245 114/58 -- -- 71 24 96 % -- -- 06/29/24 0234 114/58 37.1 C (98.7 F) Oral 70 22 96 % -- -- 06/29/24 0230 136/57 -- -- 73 25 97 % -- -- 06/29/24 0215 108/54 -- -- 67 23 96 % -- -- 06/29/24 0204 106/51 36.9 C (98.4 F) Oral 69 (!) 33 96 % -- -- 06/29/24 0157 131/56 -- -- 74 (!) 33 97 % -- -- 06/29/24 0154 -- -- -- -- -- -- 182.9 cm (6') 93 kg (205 lb) 06/29/24 0148 99/55 -- -- 71 (!) 30 98 % -- -- 06/29/24 0144 102/51 36.8 C (98.2 F) Axillary 72 18 98 % -- -- 06/29/24 0143 110/46 -- -- 73 (!) 27 97 % -- -- 06/29/24138 -- -- -- 74 (!) 26 97 % -- -- 06/29/24137 103/54 -- -- 73 (!) 28 99 % -- -- 06/29/24134 115/69 -- -- 75 -- 97 % -- -- 06/29/24133 -- -- -- 96 -- 94 % -- -- Physical Exam Constitutional: Appearance: He is ill-appearing. HENT: Head: Normocephalic. Mouth/Throat: Mouth: Mucous membranes are moist. Eyes: Extraocular Movements: Extraocular movements intact. Cardiovascular: Rate and Rhythm: Normal rate. Pulses: Normal pulses. Pulmonary: Effort: Pulmonary effort is normal. Abdominal: General: Abdomen is flat. Palpations: Abdomen is soft. Musculoskeletal: Cervical back: Normal range of motion. Neurological: Mental Status: He is alert. LABS: Results from last 7 days Lab Units 06/29/24 01306/28/24 2115 06/28/24 1901 WBC X10E9/L 10.6 -- 13.8* HEMOGLOBIN g/dL 6.9* 7.9* 8.6* HEMATOCRIT % 20.6* 23.3* 25.7* PLATELETS X10E9/L 186 -- 252 Results from last 7 days Lab Units 06/29/2413606/28/24 1901 POTASSIUM mmol/L 3.6 3.8 CHLORIDE mmol/L 111* 108 CO2 mmol/L 21* 23 BUN mg/dL 16 20 CREATININE mg/dL 1.46* 1.90* GLUCOSE mg/dL 105* 137* CALCIUM mg/dL 6.9* 8.1* No results found for: PSA Additional Lab/culture results: none Urinalysis: Lab Results Component Value Date COLOR ALISSA (A) 06/29/2024 TURBIDITY CLEAR 06/29/2024 SPECIFICGRA 1.015 06/29/2024 NITRITE Negative 06/29/2024 PHURINE 5.5 06/29/2024 LEUKOCYTE Negative 06/29/2024 PROTEIN 50 (A) 06/29/2024 KETONES Negative 06/29/2024 UROBILINOGEN <1.1 06/29/2024 BLOODHGB Large (A) 06/29/2024 Imaging Results: CT abdomen and pelvis with contrast Order: [id number] Status: Final result Visible to patient: No (scheduled for 07/02/2024 8:00 PM) Next appt: None 0 Result Notes Details Reading Physician Reading Date Result Priority Fito Alexander MD [phone] 06/28/2024 STAT Narrative & Impression CT ABDOMEN AND PELVIS W CONT CLINICAL INFORMATION: Sepsis. COMPARISON: 06/26/24. PROCEDURE: Routine CT abdomen and pelvis obtained after the uncomplicated intravenous administration of contrast material. Multiplanar reformats obtained from the axial data. All CT scans at this facility use dose modulation, iterative reconstruction, and/or weight based dosing when appropriate to reduce radiation dose to as low as reasonably achievable. FINDINGS: Hepatobiliary: * No liver abnormalities. * No biliary dilatation. * Gallbladder visualized. Spleen: * Low-attenuation lesion in the spleen, difficult to characterize given its small size. Pancreas: * Normal. Genitourinary: * Adrenal glands are normal. * Right kidney demonstrates a nonspecific exophytic lesion measuring about 3.5 cm, 48 Hounsfield units. Follow-up imaging recommended to exclude renal cell carcinoma. * Extensive left-sided perinephric stranding. There are are several calcifications in the collecting system which may relate to recent stone fragmentation procedure with a large hematoma suspected measuring 13.5 x 7.0 cm in greatest dimension, some of which appears to be subcapsular, with intraluminal hyperattenuating foci possibly related to active extravasation of contrast. Moderate to severe left-sided collecting rotation, with a double-J stent, ureteral dilation, and several calculi in the distal left ureter, with a larger stone noted measuring about 1.2 cm or a grouping of very small stone debris present. * Bladder wall thickening possibly due to cystitis. There is a Jorgensen catheter with gas in the bladder. Gastrointestinal: * Fat-containing left inguinal hernia. No bowel obstruction. Appendix is normal. No dilated loops of small bowel are present. Aorta: * Atherosclerotic calcifications in the aorta and mesenteric vessels. Lymph nodes: * No lymphadenopathy. Soft tissues and osseous structures: * Degenerative changes. Old rib fractures. 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 IMPRESSION: * Postoperative changes in the left kidney, with hematoma possibly involving the subcapsular region of the kidney measuring 13.5 x 7.0 cm with small foci of hyperdense material, active extravasation of contrast in this region not excluded. Given fall a renal laceration would be difficult to exclude. * Hyperdense debris, stone fragments, and hydronephrosis left kidney noted with extensive perinephric stranding. The left ureter is markedly dilated where there is debris in the distal left ureter. * Bladder wall thickening, correlate for cystitis. * Indeterminate right renal mass, outpatient imaging recommended to exclude neoplasm. * Please see above for further details. Assessment and Plan Impression: Neptali Loyola is a 78 y.o. male who presents status post fall. Urology was consulted due to concern for renal laceration. Patient was large hematoma in the left kidney. This is new from CT scan observed on 06/26. He still has significant amounts of hydro with stent in place. He received when he was a packed red blood cells. Patient will be admitted to the ICU for further observation. Active Problem List Left renal hematoma Hematuria Hydronephrosis with stent in the placed Renal calculi Plan: No acute urological interventions planned at this time as patient is hemodynamically stable. Hemoglobin did come up to 8.1 after initial hemoglobin of 6.9. He is receiving 1 unit of blood at this time. If patient's creatinine does not trend in the right direction, we may consider exchange of ureteral stent for upsized versus nephrostomy tube insertion. Nephrostomy tube insertion may be difficult with hematoma and bleeding. Maintain current Jorgensen catheter in place. We may upsize to a three-way catheter and hand irrigate due to significant gross hematuria Please keep on bedrest We will check hemoglobin every 6 hours Hold all anticoagulation Monitor INR Monitor creatinine Monitor hemoglobin. Transfuse for less than 7 If patient becomes unstable, would recommend obtaining a CTA of the abdomen/pelvis to determine if any active extravasation. If positive, will need Interventional Radiology consultation for embolization Urology will continue to follow closely Qasim Hernandez MD Urology Resident, PGY-3 Cosigned by Alfred Valenzuela MD at 06/29/2024 4:17 PM EST Associated attestation - Alfred Valenzuela MD - 06/29/2024 4:17 PM EST Attending Attestation: I saw the patient. I performed the critical/archer portions of the service. I was directly involved in the management and treatment plan of the patient. I reviewed the resident's note. Additional Notes/Findings: Trend hgb, bedrest. Trend Cr. At this time, will monitor Cr, no intention to exchange ureteral stent unless Cr worsens significantly. Transfuse as necessary. [employer] 06-29-2024 History and physical note Images from the original note were not included. Trauma Surgery History & Physical Examination /Consultation Note Patient: Neptali Loyola Date of : 1945 Estimated time of injury: 06/28/24 afternoon LOC: Unknown Transport: EMS from [place] Trauma level: Level 1 Work related: No History of Present Illness Neptali Loyola is an 78 y.o. White or male presented to [facility] ED via EMS as a level 2 trauma after sustaining a fall from standing height. Patient was hypotensive upon arrival with SBP in the 80s and was started on IV fluids. Trauma level was upgraded to level 1 given hypotension. Patient reports he was at his son's home and fell forward in the bathroom after getting dizzy and stumbling. He denies hitting anything, however is unsure about loss of consciousness. Unable to give full details. Denies any acute pain including no abdominal pain, no chest pain, no pain in the head or extremities. Denies any shortness of breath, nausea, vomiting or fevers. Patient is on Eliquis and Plavix for history of AFib and CAD. Patient has reportedly been taking his medications per his son. At the outside ED, CT abdomen pelvis showed possible hematoma or active bleed concerning for renal laceration. Independently reviewed external notes from outside hospital when available. Past Medical History Past Medical History: Diagnosis Date Coronary artery disease Dementia ([facility]) Hemorrhoids Memory loss Myocardial infarction ([facility]) Urinary tract infection Fall: Fall occurred: standing (Fell to the ground after stumbling in the bathroom) Height of fall: standing height Impact surface: hard floor Point of impact: back Relevant PMH: Anticoagulation Therapy: other (Eliquis) Antiplatelet Therapy: clopidogrel (plavix) Tetanus status: unknown Past Surgical History History reviewed. No pertinent surgical history. Travel Screening Question Response Have you been in contact with someone who was sick? No / Unsure Do you have any of the following new or worsening symptoms? None of these Have you traveled internationally or domestically in the last month? No Travel History Travel since 05/29/24 No documented travel since 05/29/24 Family History History reviewed. No pertinent family history. Review of Systems Review of Systems Constitutional: Negative for chills and fever. HENT: Negative for hearing loss and nosebleeds. Respiratory: Negative for chest tightness and shortness of breath. Cardiovascular: Negative for chest pain and palpitations. Gastrointestinal: Negative for abdominal pain, nausea and vomiting. Endocrine: Negative. Genitourinary: Negative. Skin: Negative for color change and wound. Neurological: Positive for dizziness. Negative for headaches. Psychiatric/Behavioral: Negative. Allergies No Known Allergies Home Meds Prior to Admission medications Not on File Immunizatons There is no immunization history on file for this patient. Last Tetanus: Unsure Social History Social History Socioeconomic History Marital status: Spouse name: Not on file Number of children: Not on file Years of education: Not on file Highest education level: Not on file Occupational History Not on file Tobacco Use Smoking status: Former Current packs/day: 0.00 Types: Cigarettes Quit date: 2008 Years since quittin.1 Smokeless tobacco: Never Substance and Sexual Activity Alcohol use: Not Currently Drug use: Never Sexual activity: Not on file Other Topics Concern Not on file Social History Narrative Not on file Social Drivers of Health Financial Resource Strain: Patient Declined (04/24/2024) [facility] Financial Resource Strain (CARDIA) Difficulty of Paying Living Expenses: Patient declined Food Insecurity: No Food Insecurity (06/29/2024) Hunger Screening Food Insecurity - Worry: Never True Food Insecurity - Inability: Never True Transportation Needs: Patient Declined (04/24/2024) Received from [facility] - Transportation Lack of Transportation (Medical): Patient declined Lack of Transportation (Non-Medical): Patient declined Physical Activity: Patient Declined (04/24/2024) Received from [facility] Exercise Vital Sign Days of Exercise per Week: Patient declined Minutes of Exercise per Session: Patient declined Stress: Patient Declined (04/24/2024) Received from [facility] [employer] - Occupational Stress Questionnaire Feeling of Stress : Patient declined Social Connections: Patient Declined (04/24/2024) Received from [facility] Social Connection and Isolation Panel [NHANES] Frequency of Communication with Friends and Family: Patient declined Frequency of Social Gatherings with Friends and Family: Patient declined Attends Congregational Services: Patient declined Active Member of Clubs or Organizations: Patient declined Attends Club or Organization Meetings: Patient declined Marital Status: Patient declined Interpersonal Safety: Unknown (04/24/2024) Received from [facility] Humiliation, Afraid, Rape, and Kick questionnaire Fear of Current or Ex-Partner: Patient declined Emotionally Abused: Patient declined Physically Abused: Not on file Sexually Abused: Patient declined Housing Instability: Patient Declined (04/24/2024) Received from [facility] Housing Stability Vital Sign Unable to Pay for Housing in the Last Year: Patient declined Number of Times Moved in the Last Year: 0 Homeless in the Last Year: Patient declined Substance Use: ETOH No Tobacco No Drugs No Support: family, children Occupation: unknown NPO since: unknown LMP: N/A Smoking cessation discussed: no Vitals Vital signs: Vitals: 06/29/24 0230 06/29/24 0234 06/29/24 0245 06/29/24 0320 BP: 136/57 114/58 114/58 121/55 Pulse: 73 70 71 79 Resp: 22 24 23 Temp: 37.1 C (98.7 F) 36.9 C (98.4 F) TempSrc: Oral Oral SpO2: 97% 96% 96% 95% Weight: 97.5 kg (214 lb 15.2 oz) Height: Temperature Range Last 24 Hours : Temp: 36.9 C (98.4 F) Temp Av C (98.6 F) Min: 36.8 C (98.2 F) Max: 37.3 C (99.2 F) Admit Weight: 93 kg (205 lb) Body mass index is 29.15 kg/m . Last Weights: Wt Readings from Last 3 Encounters: 06/29/24 97.5 kg (214 lb 15.2 oz) 06/28/24 93 kg (205 lb) I/O's: Intake/Output Summary (Last 24 hours) at 06/29/2024 0410 Last data filed at 06/29/2024 0140 Gross per 24 hour Intake -- Output 300 ml Net -300 ml O2 Device: None (Room air) Last 24 hr Labs Recent Results (from the past 24 hours) SARS/FLU A+B/RSV by NAAT/Molecular (M4RT Collection Tube) Collection Time: 06/28/24 6:10 PM Result Value Ref Range FLU A PCR Negative Negative^Negative FLU B PCR Negative Negative^Negative RSV by PCR Negative Negative^Negative SARS CoV 2 BY PCR Not Detected Not Detected^Not Detected Comprehensive metabolic panel Collection Time: 06/28/24 7:01 PM Result Value Ref Range Sodium 137 134 - 146 mmol/L Potassium, Bld 3.8 3.5 - 5.0 mmol/L Chloride 108 98 - 109 mmol/L CO2 23 22 - 32 mmol/L Anion gap 6 5 - 15 mmol/L BUN 20 5 - 27 mg/dL Creatinine 1.90 (H) 0.70 - 1.20 mg/dL Glucose 137 (H) 65 - 99 mg/dL Calcium 8.1 (L) 8.5 - 10.5 mg/dL Total Protein 6.1 6.0 - 8.0 g/dL Albumin 2.6 (L) 3.2 - 5.3 g/dL Alkaline Phosphatase 70 39 - 130 U/L AST 25 0 - 41 U/L ALT 16 0 - 40 U/L Total bilirubin 1.7 (H) 0.3 - 1.2 mg/dL eGFR (CKD-EPI)non-race dependent 36 (L) >59 ml/min/1.73sq.m Lactate w/ Reflex Collection Time: 06/28/24 7:01 PM Result Value Ref Range Lactate w/ Reflex 1.6 0.4 - 2.0 mmol/L Procalcitonin Collection Time: 06/28/24 7:01 PM Result Value Ref Range Procalcitonin 0.33 (H) <0.05 ng/mL CBC auto differential Collection Time: 06/28/24 7:01 PM Result Value Ref Range White Blood Cells 13.8 (H) 4.0 - 11.0 X10E9/L RBC count 2.74 (L) 4.10 - 5.70 X10E12/L Hemoglobin 8.6 (L) 13.0 - 17.0 g/dL Hematocrit 25.7 (L) 39 - 49 % MCV 94 80 - 100 fL MCH 31.4 27 - 34 pg MCHC 33.6 32 - 36 g/dL RDW 15.0 11.5 - 15.0 % Platelets 252 150 - 450 X10E9/L MPV 9.3 7 - 12 fL % neutrophils 88.9 % % lymphocytes 3.3 % % monocytes 7.4 % % eosinophils 0.1 % % Basophils 0.3 % Neutrophils Absolute (A) 12.3 (H) 1.5 - 6.6 X10E9/L Lymphocytes Absolute 0.5 (L) 1.0 - 3.5 X10E9/L Monocytes Absolute 1.0 (H) 0 - 0.9 X10E9/L Eosinophils Absolute 0.0 0.0 - 0.4 X10E9/L Basophils Absolute 0.0 0.0 - 0.2 X10E9/L Protime & INR Collection Time: 06/28/24 7:01 PM Result Value Ref Range Protime 34.3 (H) 9.8 - 13.2 sec Inr 3.1 (H) 0.8 - 1.1 APTT Collection Time: 06/28/24 7:01 PM Result Value Ref Range aPTT 40 (H) 26 - 37 sec Magnesium Collection Time: 06/28/24 7:01 PM Result Value Ref Range Magnesium 1.9 1.8 - 2.6 mg/dL Fibrinogen Collection Time: 06/28/24 7:01 PM Result Value Ref Range Fibrinogen 644 (H) 190 - 480 mg/dL Urinalysis Collection Time: 06/28/24 9:00 PM Result Value Ref Range Color ALISSA (A) YELLOW^YELLOW Turbidity HAZY (A) CLEAR^CLEAR Specific gravity 1.015 1.003 - 1.035 Nitrite Negative Negative^Negative Ph urine 6.0 5.0 - 8.5 Leukocyte esterase Negative Negative^Negative Protein 100 (A) Negative^Negative mg/dL Glucose, Ur >1,000 (A) Negative^Negative mg/dL Ketones urine Negative Negative^Negative mg/dL Urobilinogen 0.2 <1.1 eu/dL Bilirubin, urine Negative Negative^Negative Hemoglobin Large (A) Negative^Negative WBC 0 0 - 5 /hpf RBC 10 (H) 0 - 5 /hpf Hemoglobin Collection Time: 06/28/24 9:15 PM Result Value Ref Range Hemoglobin 7.9 (L) 13.0 - 17.0 g/dL Hematocrit Collection Time: 06/28/24 9:15 PM Result Value Ref Range Hematocrit 23.3 (L) 39 - 49 % Type and screen(includes indirect zoie) Collection Time: 06/28/24 11:33 PM Result Value Ref Range ABO A RH Positive Antibody Screen Negative Type and screen(includes indirect zoie) Collection Time: 06/29/24 1:30 AM Result Value Ref Range ABO A RH Positive Antibody Screen Negative Crossmatch RBC:Number of Units: 1 Collection Time: 06/29/24 1:30 AM Result Value Ref Range Blood component type [id number] Unit number [id number] Unit ABO O Unit RH POS Crossmatch Compatible Status of unit ISSUED Expiration Date [id number] BB Type Barcode 5100 ABO Rh Repeat Collection Time: 06/29/24 1:30 AM Result Value Ref Range ABO A RH Positive Crossmatch RBC: Collection Time: 06/29/24 1:30 AM Result Value Ref Range Blood component type [id number] Unit number [id number] Unit ABO O Unit RH POS Crossmatch Compatible Status of unit SELECTED Expiration Date [id number] BB Type Barcode 5100 Crossmatch RBC: Collection Time: 06/29/24 1:30 AM Result Value Ref Range Blood component type [id number] Unit number [id number] Unit ABO O Unit RH POS Crossmatch Compatible Status of unit SELECTED Expiration Date [id number] BB Type Barcode 5100 Crossmatch RBC: Collection Time: 06/29/24 1:30 AM Result Value Ref Range Blood component type [id number] Unit number [id number] Unit ABO O Unit RH POS Crossmatch Compatible Status of unit SELECTED Expiration Date [id number] BB Type Barcode 5100 Crossmatch RBC: Collection Time: 06/29/24 1:30 AM Result Value Ref Range Blood component type [id number] Unit number [id number] Unit ABO O Unit RH POS Status of unit ISSUED Expiration Date [id number] BB Type Barcode 5100 Crossmatch RBC: Collection Time: 06/29/24 1:30 AM Result Value Ref Range Blood component type [id number] Unit number [id number] Unit ABO O Unit RH POS Status of unit ISSUED Expiration Date [id number] BB Type Barcode 5100 Crossmatch RBC: Collection Time: 06/29/24 1:30 AM Result Value Ref Range Blood component type [id number] Unit number [id number] Unit ABO O Unit RH POS Status of unit ISSUED Expiration Date [id number] BB Type Barcode 5100 Crossmatch RBC: Collection Time: 06/29/24 1:30 AM Result Value Ref Range Blood component type [id number] Unit number [id number] Unit ABO O Unit RH POS Status of unit /RELEASED Expiration Date [id number] BB Type Barcode 5100 Crossmatch RBC: Collection Time: 06/29/24 1:30 AM Result Value Ref Range Blood component type [id number] Unit number [id number] Unit ABO O Unit RH POS Status of unit /RELEASED Expiration Date [id number] BB Type Barcode 5100 Crossmatch RBC: Collection Time: 06/29/24 1:30 AM Result Value Ref Range Blood component type [id number] Unit number [id number] Unit ABO O Unit RH POS Status of unit /RELEASED Expiration Date [id number] BB Type Barcode 5100 Protime & INR Collection Time: 06/29/24 1:37 AM Result Value Ref Range Protime 18.1 (H) 9.8 - 13.2 sec Inr 1.6 (H) 0.8 - 1.1 APTT Collection Time: 06/29/24 1:37 AM Result Value Ref Range aPTT 33 26 - 37 sec CBC auto differential Collection Time: 06/29/24 1:37 AM Result Value Ref Range White Blood Cells 10.6 4.0 - 11.0 X10E9/L RBC count 2.19 (L) 4.10 - 5.70 X10E12/L Hemoglobin 6.9 (LL) 13.0 - 17.0 g/dL Hematocrit 20.6 (L) 39 - 49 % MCV 94 80 - 100 fL MCH 31.4 27 - 34 pg MCHC 33.4 32 - 36 g/dL RDW 14.5 11.5 - 15.0 % Platelets 186 150 - 450 X10E9/L MPV 9.3 7 - 12 fL % neutrophils 86.0 % % lymphocytes 5.3 % % monocytes 8.6 % % eosinophils 0.0 % % Basophils 0.1 % Neutrophils Absolute (A) 9.1 (H) 1.5 - 6.6 X10E9/L Lymphocytes Absolute 0.6 (L) 1.0 - 3.5 X10E9/L Monocytes Absolute 0.9 0 - 0.9 X10E9/L Eosinophils Absolute 0.0 0.0 - 0.4 X10E9/L Basophils Absolute 0.0 0.0 - 0.2 X10E9/L Ethanol Collection Time: 06/29/24 1:37 AM Result Value Ref Range Ethanol Lvl <0.01 0.00 - 0.08 g/dL Amylase Collection Time: 06/29/24 1:37 AM Result Value Ref Range Amylase 14 (L) 28 - 100 U/L Comprehensive metabolic panel Collection Time: 06/29/24 1:37 AM Result Value Ref Range Sodium 140 134 - 146 mmol/L Potassium, Bld 3.6 3.5 - 5.0 mmol/L Chloride 111 (H) 98 - 109 mmol/L CO2 21 (L) 22 - 32 mmol/L Anion gap 8 5 - 15 mmol/L BUN 16 5 - 27 mg/dL Creatinine 1.46 (H) 0.60 - 1.30 mg/dL Glucose 105 (H) 65 - 99 mg/dL Calcium 6.9 (LL) 8.5 - 10.5 mg/dL Total Protein 4.5 (L) 6.0 - 8.0 g/dL Albumin 2.4 (L) 3.2 - 5.3 g/dL Alkaline Phosphatase 63 39 - 130 U/L AST 15 0 - 41 U/L ALT 9 0 - 40 U/L Total bilirubin 0.8 0.3 - 1.2 mg/dL eGFR (CKD-EPI)non-race dependent 49 (L) >59 ml/min/1.73sq.m Fibrinogen Collection Time: 06/29/24 1:37 AM Result Value Ref Range Fibrinogen 501 (H) 190 - 480 mg/dL Lipase Collection Time: 06/29/24 1:37 AM Result Value Ref Range Lipase 8 (L) 11 - 82 U/L POCT Electrolytes w/ BUN, Creat, Gluc, Hematocrit Collection Time: 06/29/24 1:38 AM Result Value Ref Range Portable sodium 143 134 - 146 mmol/L Portable potassium 3.5 3.5 - 5.0 mmol/L Portable chloride 107 98 - 109 mmol/L CO2 21 (L) 22 - 32 mmol/L Portable glucose 103 (H) 65 - 99 mg/dL Portable bun 14 6 - 27 mg/dL Portable creatinine 1.7 (H) 0.7 - 1.2 mg/dL eGFR (CKD-EPI)non-race dependent 41 (L) >59 ml/min/1.73sq.m Portable hematocrit 20 (L) 39 - 49 % Drug Screen, Urine Collection Time: 06/29/24 2:06 AM Result Value Ref Range Amphetamine/methamphetamine Negative Negative^Negative Barbiturate Screen, Ur Negative Negative^Negative Benzodiazepine Screen, Urine Negative Negative^Negative THC, urine Negative Negative^Negative Cocaine (metabolite) Negative Negative^Negative Opiate Quant, Ur Negative Negative^Negative Phencyclidine Negative Negative^Negative Oxycodone Negative Negative^Negative Methadone Negative Negative^Negative Ecstasy Negative Negative^Negative Urinalysis Collection Time: 06/29/24 2:06 AM Result Value Ref Range Color ALISSA (A) YELLOW^YELLOW Turbidity CLEAR CLEAR^CLEAR Specific gravity 1.015 1.003 - 1.035 Nitrite Negative Negative^Negative Ph urine 5.5 5.0 - 8.5 Leukocyte esterase Negative Negative^Negative Protein 50 (A) Negative^Negative mg/dL Glucose, Ur >1,000 (A) Negative^Negative mg/dL Ketones urine Negative Negative^Negative mg/dL Urobilinogen <1.1 <1.1 eu/dL Bilirubin, urine Negative Negative^Negative Hemoglobin Large (A) Negative^Negative Microspopic Urine URINE RECEIVED WITHOUT PRESERVATIVE-DELAYS IN TRANSPORT MAY AFFECT RESULTS.INTERPRET WITH CAUTION AND CLINICAL CORRELATION IS RECOMMENDED. Mucus, UA PRESENT (A) NONE^NONE RBC >720 (H) 0 - 5 /hpf Squamous epithelium 1 0 - 5 /hpf WBC 2 0 - 5 /hpf Lactate w/ Reflex Collection Time: 06/29/24 2:11 AM Result Value Ref Range Lactate w/ Reflex 0.7 0.4 - 2.0 mmol/L Cultures: Microbiology Results (last 21 days) Procedure Component Value - Date/Time Urine culture [[id number]] Resulted: 06/29/24 0320 Lab Status: In process Specimen: Urine Updated: 06/29/24 0331 Urine culture [[id number]] Collected: 06/28/24 2100 Lab Status: No result Specimen: Urine Blood culture, peripheral #2 [[id number]] Collected: 06/28/24 1907 Lab Status: In process Specimen: Blood, Peripheral Draw Updated: 06/28/241913 Blood culture, peripheral #1 [[id number]] Collected: 06/28/24 1859 Lab Status: In process Specimen: Blood, Peripheral Draw Updated: 06/28/241913 SARS/FLU A+B/RSV by NAAT/Molecular (M4RT Collection Tube) [[id number]] Collected: 06/28/24 181 Lab Status: Final result Specimen: Nasopharynx Updated: 06/28/241946 FLU A PCR Negative FLU B PCR Negative RSV by PCR Negative SARS CoV 2 BY PCR Not Detected Comment: NOTE The Xpert Xpress SARS-CoV-2/Flu/RSV Plus test is a rapid, multiplexed real-time RT-PCR test intended for the simultaneous qualitative detection and differentiation of SARS-CoV-2, influenza A, influenza B and respiratory syncytial virus (RSV) viral RNA from individuals suspected of respiratory viral infection consistent with COVID-19 by their healthcare provider. This test has not been validated in asymptomatic patients. The Xpert Xpress SARS-CoV-2 test is intended for use by qualified and trained operators who are performing tests using either [employer] or [employer] systems and is limited to laboratories that meet the CLIA requirements to perform high and moderate complexity tests. The Xpert Xpress SARS-CoV-2/Flu/RSV Plus is only for use under the Food and Drug Administration's Emergency Use Authorization. Results are for the simultaneous detection and differentiation of SARS-CoV-2, influenza A, influenza B and RSV nucleic acids in clinical specimens. SARS-CoV-2, influenza A, influenza B and RSV RNA identified by this test are generally detectable in upper respiratory samples during the acute phase of infection. Positive results are indicative of the presence of the identified virus, but do not rule out bacterial infection or co-infection with other pathogens not detected by this test. Clinical correlation with patient history and other diagnostic information is necessary to determine patient infection status. The agent detected may not be the definite cause of disease. Negative results do not preclude SARS-CoV-2, influenza A, influenza B and RSV infection and should not be used as the sole basis for treatment or other patient management decisions. Negative results must be combined with clinical observations, patient history and epidemiological information. An Invalid result may occur with specimen-associated inhibition unable to be resolved with specimen repeat. Fact Sheet for Healthcare Providers: https://www.fda.gov/media/511817/do wnload Fact Sheet for Patients: https://www.fda.gov/media/809737/do wnload Independently reviewed trauma specific results. Radiology Results Bedside FAST exam results: Not performed X-ray chest 1 view Result Date: 06/29/2024 Narrative: HISTORY: Pain, trauma COMPARISON: None FINDINGS: AP supine view of the chest was performed. Left-sided pacemaker with intact leads. Left basilar atelectasis. No overt vascular congestion. No significant pleural effusion or pneumothorax. Osseous structures are grossly intact. IMPRESSION: * No acute abnormality. Finalized by Ricardo Cueto MD on 06/29/2024 1:[address] abdomen and pelvis with contrast Result Date: 06/28/2024 Narrative: CT ABDOMEN AND PELVIS W CONT CLINICAL INFORMATION: Sepsis. COMPARISON: 06/26/24. PROCEDURE: Routine CT abdomen and pelvis obtained after the uncomplicated intravenous administration of contrast material. Multiplanar reformats obtained from the axial data. All CT scans at this facility use dose modulation, iterative reconstruction, and/or weight based dosing when appropriate to reduce radiation dose to as low as reasonably achievable. FINDINGS: Hepatobiliary: * No liver abnormalities. * No biliary dilatation. * Gallbladder visualized. Spleen: * Low-attenuation lesion in the spleen, difficult to characterize given its small size. Pancreas: * Normal. Genitourinary: * Adrenal glands are normal. * Right kidney demonstrates a nonspecific exophytic lesion measuring about 3.5 cm, 48 Hounsfield units. Follow-up imaging recommended to exclude renal cell carcinoma. * Extensive left-sided perinephric stranding. There are are several calcifications in the collecting system which may relate to recent stone fragmentation procedure with a large hematoma suspected measuring 13.5 x 7.0 cm in greatest dimension, some of which appears to be subcapsular, with intraluminal hyperattenuating foci possibly related to active extravasation of contrast. Moderate to severe left-sided collecting rotation, with a double-J stent, ureteral dilation, and several calculi in the distal left ureter, with a larger stone noted measuring about 1.2 cm or a grouping of very small stone debris present. * Bladder wall thickening possibly due to cystitis. There is a Jorgensen catheter with gas in the bladder. Gastrointestinal: * Fat-containing left inguinal hernia. No bowel obstruction. Appendix is normal. No dilated loops of small bowel are present. Aorta: * Atherosclerotic calcifications in the aorta and mesenteric vessels. Lymph nodes: * No lymphadenopathy. Soft tissues and osseous structures: * Degenerative changes. Old rib fractures. 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 IMPRESSION: * Postoperative changes in the left kidney, with hematoma possibly involving the subcapsular region of the kidney measuring 13.5 x 7.0 cm with small foci of hyperdense material, active extravasation of contrast in this region not excluded. Given fall a renal laceration would be difficult to exclude. * Hyperdense debris, stone fragments, and hydronephrosis left kidney noted with extensive perinephric stranding. The left ureter is markedly dilated where there is debris in the distal left ureter. * Bladder wall thickening, correlate for cystitis. * Indeterminate right renal mass, outpatient imaging recommended to exclude neoplasm. * Please see above for further details. Finalized by Fito Alexander MD on 06/28/2024 8:[address] facial bones without contrast Result Date: 06/28/2024 Narrative: CLINICAL INFORMATION: Facial trauma, blunt . COMPARISON: None. PROCEDURE: Routine CT maxillofacial obtained without contrast. Sagittal and coronal reformats were obtained from the axial data. All CT scans at this facility use dose modulation, iterative reconstruction, and/or weight based dosing when appropriate to reduce radiation dose to as low as reasonably achievable. FINDINGS: Old nasal bone injury, no acute fracture. No displaced maxillofacial fracture. Mild nasal septal deviation to the right. Sinuses are clear. Lens replacements. Orbital floors intact. Globes intact. IMPRESSION: * No acute maxillofacial fracture. Finalized by Fito Alexander MD on 06/28/2024 8:[address] cervical spine without contrast Result Date: 06/28/2024 Narrative: CT CERVICAL SPINE WO CONT CLINICAL INFORMATION: Neck trauma (Age >= 65y). COMPARISON: None. PROCEDURE: Routine cervical spine protocol CT was obtained without intravenous contrast. Sagittal and coronal reformatted images were obtained from the axial data. All CT scans at this facility use dose modulation, iterative reconstruction, and/or weight based dosing when appropriate to reduce radiation dose to as low as reasonably achievable. FINDINGS: No acute fracture. Incomplete fusion of the posterior elements of C1 which is a normal variant. Normal alignment. Endplate and facet degenerative changes most notably at C5-6. Vascular calcifications. Minimal scarring at the lung apices. Please note, if ligamentous or spinal cord injury is of clinical concern, suggest MR imaging or flexion-extension radiographs. IMPRESSION: * No acute fracture or significant malalignment. * Multilevel degenerative changes. Finalized by Fito Alexander MD on 06/28/2024 8:[address] brain without contrast Result Date: 06/28/2024 Narrative: CLINICAL INFORMATION: Head trauma, moderate-severe COMPARISON: None. PROCEDURE: Routine CT Head obtained without contrast. All CT scans at this facility use dose modulation, iterative reconstruction, and/or weight based dosing when appropriate to reduce radiation dose to as low as reasonably achievable. FINDINGS: Motion artifact degrades assessment. No acute intracranial hemorrhage. No mass effect or midline shift. No extra-axial fluid collections. The ventricles and sulci are prominent consistent with global atrophy. Low-attenuation areas identified in the periventricular white matter consistent with microvascular ischemia. No depressed calvarial fracture. IMPRESSION: * No acute intracranial findings by CT. Finalized by Fito Alexander MD on 06/28/2024 8:[address] abdomen and pelvis without contrast Result Date: 06/26/2024 Narrative: CT ABDOMEN PELVIS WO IV CONTRAST CLINICAL INFORMATION: 78 years old Male with hematuria. TECHNIQUE/PROCEDURE: CT Abdomen and Pelvis without contrast. All CT scans at this facility use dose modulation, iterative reconstruction, and/or weight based dosing when appropriate to reduce radiation dose to as low as reasonably achievable COMPARISON: No relevant prior studies available. FINDINGS: Lower chest: Cardiomegaly, coronary artery calcifications stenting Liver: Unremarkable. Gallbladder and bile ducts: Unremarkable. Spleen: Unremarkable. Pancreas: Unremarkable. Adrenal glands: Unremarkable. Kidneys and ureters: Abnormal postprocedural left kidney. There is broken up calculi throughout the kidney and dilated left ureter. There is high density in the dilated left collecting system and left ureter compatible with hemorrhage. There is a punctate focus of gas in the renal parenchyma which may be postprocedural versus infection. Significant inflammatory stranding about the left kidney. There is a small amount of high attenuation material just anterior to the superior aspect of the left kidney. The left ureteral stent is in place. The urinary bladder is decompressed. A 3.6 cm indeterminate right renal lesion. Bladder: Decompressed Reproductive organs: Unremarkable. Vasculature: Severe diffuse atherosclerotic disease. Peritoneum: No free air or free fluid Stomach and Bowel: Small and large bowel are normal in caliber. Appendix is unremarkable. Soft tissues: Fat-containing left inguinal hernia. Bones: Vertebral body heights are intact. Thoracolumbar degenerative findings. Diffuse idiopathic skeletal hyperostosis. Impression: * Severe left hydroureteronephrosis with extensive hemorrhagic contents in the collecting system. Patient is post procedure of presumed lithotripsy and ureteral stent placement. Fragments of calculus throughout the intrarenal collecting system/ureter. Significant perinephric inflammatory stranding as well as small amount of hemorrhage adjacent to the anterior aspect of the upper left kidney. There is a punctate focus of gas in the left renal parenchyma which could be postprocedural in nature or related to infection. * Indeterminant exophytic mass right kidney measuring 3.6 cm, recommend contrast enhanced MRI for further characterization on a nonemergent outpatient basis. Approved by:Janak Sanchez06/26/2024 6:00 AM. I, Rob Kellogg MD,have reviewed the image(s) and agree with the findings in this report. Electronically signed: Rob Kellogg MD. X-ray chest 1 view Result Date: 06/26/2024 Narrative: CHEST ONE VIEW COMPARISON: 03/05/2024 HISTORY: Weakness. Portable AP chest radiograph obtained. Impression: 1. The cardiomediastinal silhouette and pulmonary vasculature are stable. Left ICD. 2. No evidence for a pneumothorax, focal consolidation, or pleural effusion. Linear atelectasis in the left mid to lower lung zones. Electronically signed: Wilberto BrownDeangelo [place] in [place] Result Date: 06/19/2024 Narrative: CLINICAL INFORMATION: Cystoscopy, stent exchange FINDINGS: Fluoro Time: 40 sec Reference air kerma = 11.1 mGy. Number of images: 26 Impression: * Intraoperative fluoroscopy provided for stent exchange. Please note, no radiologist was present during the procedure. A radiologist reviewed the procedural images. Electronically signed: ASHLEY JOYCE MD. Cardiac device check - Remote Result Date: 05/30/2024 Narrative: By using the attestations below, the signing clinician agrees that I have read and verify that the documentation has been personally reviewed by me and ensure that the documentation accurately reflects the encounter. Routine EP device follow up as per schedule. Lead thresholds are stable. THORACIC IMPEDANCE VALUES [employer] reviewed and remains above threshold since last report 04/25/2024. HF Index is 19 and plateaued. TI is 56.5 and plateaued after trending upward. LOG OPERATIONS COORDINATOR RVP 85.0% Independently reviewed radiographic studies to evaluate for acute traumatic injuries. Physical Exam Physical Exam Constitutional He is oriented to person, place, and time. He appears well-developed. No distress. HENT Head Normocephalic and atraumatic. Eyes: Conjunctivae and EOM are normal. Neck Normal range of motion. No stridor and no tracheal deviation present. Cardiovascular: Normal rate and regular rhythm. Pulses: intact distal pulses Pulmonary/Chest: Effort normal. No stridor. No respiratory distress. Abdominal: He exhibits no distension. Soft. There is no abdominal tenderness. There is no guarding. Musculoskeletal: General: No tenderness. Cervical back: Normal range of motion. Neurological: He is oriented to person, place, and time. Skin: Skin is warm and dry. Psychiatric: He has a normal mood and affect. His behavior is normal. Airway: Intact Breathing: Intact Circulation: Intact GCS: 15 Eye: Verbal Motor 1 Does not open 1 No sounds 1 No movement 2 Opens to pain 2 Incomprehensible sounds 2 Extension w/pain 3 Opens to voice 3 Incoherent words 3 Flex w/ pain 4 Spontaneous 4 Confused / disoriented 4 Withdraw from pain 5 Oriented 5 Localizes to painful stimuli 6 Obeys commands [employer] Rodri [employer] 1994 Have you felt the need to cut down on your drinking or drug use? no Do you feel annoyed by people complaining about your drinking or drug use? no Do you ever feel guilty about your drinking or drug use? no Have you ever had a drink or used drugs first thing in the morning to steady your nerves or to get rid of a hangover? no Scorin or more positive terms indicate the need for a brief intervention or social work consult. ASSESSMENT / PLAN Edluis armando Loyola 78 y.o. male Mechanism: Fall from standing height Tertiary Examination: To be completed within 24hrs of admission if possible. Injuries/Traumatic issues: Fall from standing height -TraumaGram -CT Head- no acute intracranial findings -CT Cervical spine- no acute fracture, multilevel degenerative changes -CT Chest -CT Abdomen and pelvis- Postoperative changes in the left kidney, with hematoma possibly involving the subcapsular region of the kidney measuring 13.5 x 7.0 cm with small foci of hyperdense material, active extravasation of contrast in this region not excluded. -TraumaLabs -CMP -CBC -Coags, PT/INR -Amylase -Lipase -Ethanol -Urine Drug screen -Urinalysis -Trauma Meds -Ancef -Pepcid -Tetanus 2. Acute post traumatic pain - currently on IV tylenol, Fentanyl PRN, Lidoderm 3. Left Renal Hematoma - Consult Urology - Serial H/H - Bedrest - NPO 4. Acute hypotension and blood loss anemia - Transfuse 1u pRBC in the ED - Serial H/H - Monitor Hgb and transfuse PRN Comorbidities/Medical issues: Neuro- Pulm- Cardio- CAD, SC, HTN GI- - CKD, nephrolithiasis Heme- ID- MSK- Endo- Lytes- Lines and Tubes: Jorgensen, PIVs Nutrition: NPO Prophylaxis: SCDs, hold chemical ppx Disposition: SICU Medical Decision Making: High ER Procedures: 1. none CONSULTATIONS Consultations:Urology Did consultants call back in 10min: yes Trauma Team Present: [facility] DENNEY Trauma Team Arrival time: 114 Attending: Dr. Ru Schwarz MD saw patient at arrival SWEETIE FOSTER MD 06/29/24 4:10 AM Trauma can be reached via Patient Touch Pager: [phone] Cosigned by Ru Schwarz MD at 06/29/2024 10:06 AM EST Associated attestation - Ru Schwarz MD - 06/29/2024 10:06 AM EST Attending Attestation: I saw the patient. I participated and was physically present during the critical/archer portions of the service. I was directly involved in the management and treatment plan of the patient. I reviewed the resident's note. Additional Notes/Findings: 78-year-old male initially seen at outside hospital after a ground level fall. Patient is on Eliquis and has had recent lithotripsy done on the left kidney. Patient had episode of hypotension and CT scan showed evidence of a left perinephric hematoma. Patient was transferred to [facility] as a level 2 trauma activation. Due to hypotension he was upgraded to a level 1 activation. Patient evaluated by ATLS protocol. Initial GCS of 15. To crystalloid infusion and then 1 PRBC. No additional testing was done. Patient to be admitted to the surgical intensive care unit with consultation to urology [facility] Work Phone: 06-29-2024 History and physical note Images from the original note were not included. Trauma Surgery History & Physical Examination /Consultation Note Patient: Neptali Loyola Date of : 1945 Estimated time of injury: 06/28/24 afternoon LOC: Unknown Transport: EMS from [place] Trauma level: Level 1 Work related: No History of Present Illness Neptali Loyola is an 78 y.o. White or male presented to [facility] ED via EMS as a level 2 trauma after sustaining a fall from standing height. Patient was hypotensive upon arrival with SBP in the 80s and was started on IV fluids. Trauma level was upgraded to level 1 given hypotension. Patient reports he was at his son's home and fell forward in the bathroom after getting dizzy and stumbling. He denies hitting anything, however is unsure about loss of consciousness. Unable to give full details. Denies any acute pain including no abdominal pain, no chest pain, no pain in the head or extremities. Denies any shortness of breath, nausea, vomiting or fevers. Patient is on Eliquis and Plavix for history of AFib and CAD. Patient has reportedly been taking his medications per his son. At the outside ED, CT abdomen pelvis showed possible hematoma or active bleed concerning for renal laceration. Independently reviewed external notes from outside hospital when available. Past Medical History Past Medical History: Diagnosis Date Coronary artery disease Dementia ([facility]) Hemorrhoids Memory loss Myocardial infarction ([facility]) Urinary tract infection Fall: Fall occurred: standing (Fell to the ground after stumbling in the bathroom) Height of fall: standing height Impact surface: hard floor Point of impact: back Relevant PMH: Anticoagulation Therapy: other (Eliquis) Antiplatelet Therapy: clopidogrel (plavix) Tetanus status: unknown Past Surgical History History reviewed. No pertinent surgical history. Travel Screening Question Response Have you been in contact with someone who was sick? No / Unsure Do you have any of the following new or worsening symptoms? None of these Have you traveled internationally or domestically in the last month? No Travel History Travel since 05/29/24 No documented travel since 05/29/24 Family History History reviewed. No pertinent family history. Review of Systems Review of Systems Constitutional: Negative for chills and fever. HENT: Negative for hearing loss and nosebleeds. Respiratory: Negative for chest tightness and shortness of breath. Cardiovascular: Negative for chest pain and palpitations. Gastrointestinal: Negative for abdominal pain, nausea and vomiting. Endocrine: Negative. Genitourinary: Negative. Skin: Negative for color change and wound. Neurological: Positive for dizziness. Negative for headaches. Psychiatric/Behavioral: Negative. Allergies No Known Allergies Home Meds Prior to Admission medications Not on File Immunizatons There is no immunization history on file for this patient. Last Tetanus: Unsure Social History Social History Socioeconomic History Marital status: Spouse name: Not on file Number of children: Not on file Years of education: Not on file Highest education level: Not on file Occupational History Not on file Tobacco Use Smoking status: Former Current packs/day: 0.00 Types: Cigarettes Quit date: 2008 Years since quittin.1 Smokeless tobacco: Never Substance and Sexual Activity Alcohol use: Not Currently Drug use: Never Sexual activity: Not on file Other Topics Concern Not on file Social History Narrative Not on file Social Drivers of Health Financial Resource Strain: Patient Declined (04/24/2024) Received from [facility] Overall Financial Resource Strain (CARDIA) Difficulty of Paying Living Expenses: Patient declined Food Insecurity: No Food Insecurity (06/29/2024) Hunger Screening Food Insecurity - Worry: Never True Food Insecurity - Inability: Never True Transportation Needs: Patient Declined (04/24/2024) Received from [facility] PRALEXUSE - Transportation Lack of Transportation (Medical): Patient declined Lack of Transportation (Non-Medical): Patient declined Physical Activity: Patient Declined (04/24/2024) Received from [facility] Exercise Vital Sign Days of Exercise per Week: Patient declined Minutes of Exercise per Session: Patient declined Stress: Patient Declined (04/24/2024) Received from [facility] [employer] - Occupational Stress Questionnaire Feeling of Stress : Patient declined Social Connections: Patient Declined (04/24/2024) Received from [facility] Social Connection and Isolation Panel [NHANES] Frequency of Communication with Friends and Family: Patient declined Frequency of Social Gatherings with Friends and Family: Patient declined Attends Congregational Services: Patient declined Active Member of Clubs or Organizations: Patient declined Attends Club or Organization Meetings: Patient declined Marital Status: Patient declined Interpersonal Safety: Unknown (04/24/2024) Received from [facility] Humiliation, Afraid, Rape, and Kick questionnaire Fear of Current or Ex-Partner: Patient declined Emotionally Abused: Patient declined Physically Abused: Not on file Sexually Abused: Patient declined Housing Instability: Patient Declined (04/24/2024) Received from [facility] Housing Stability Vital Sign Unable to Pay for Housing in the Last Year: Patient declined Number of Times Moved in the Last Year: 0 Homeless in the Last Year: Patient declined Substance Use: ETOH No Tobacco No Drugs No Support: family, children Occupation: unknown NPO since: unknown LMP: N/A Smoking cessation discussed: no Vitals Vital signs: Vitals: 06/29/24 0230 06/29/24 0234 06/29/24 0245 06/29/24 0320 BP: 136/57 114/58 114/58 121/55 Pulse: 73 70 71 79 Resp: 24 23 Temp: 37.1 C (98.7 F) 36.9 C (98.4 F) TempSrc: Oral Oral SpO2: 97% 96% 96% 95% Weight: 97.5 kg (214 lb 15.2 oz) Height: Temperature Range Last 24 Hours : Temp: 36.9 C (98.4 F) Temp Av C (98.6 F) Min: 36.8 C (98.2 F) Max: 37.3 C (99.2 F) Admit Weight: 93 kg (205 lb) Body mass index is 29.15 kg/m . Last Weights: Wt Readings from Last 3 Encounters: 06/29/24 97.5 kg (214 lb 15.2 oz) 06/28/24 93 kg (205 lb) I/O's: Intake/Output Summary (Last 24 hours) at 06/29/2024 0410 Last data filed at 06/29/2024 0140 Gross per 24 hour Intake -- Output 300 ml Net -300 ml O2 Device: None (Room air) Last 24 hr Labs Recent Results (from the past 24 hours) SARS/FLU A+B/RSV by NAAT/Molecular (M4RT Collection Tube) Collection Time: 06/28/24 6:10 PM Result Value Ref Range FLU A PCR Negative Negative^Negative FLU B PCR Negative Negative^Negative RSV by PCR Negative Negative^Negative SARS CoV 2 BY PCR Not Detected Not Detected^Not Detected Comprehensive metabolic panel Collection Time: 06/28/24 7:01 PM Result Value Ref Range Sodium 137 134 - 146 mmol/L Potassium, Bld 3.8 3.5 - 5.0 mmol/L Chloride 108 98 - 109 mmol/L CO2 23 22 - 32 mmol/L Anion gap 6 5 - 15 mmol/L BUN 20 5 - 27 mg/dL Creatinine 1.90 (H) 0.70 - 1.20 mg/dL Glucose 137 (H) 65 - 99 mg/dL Calcium 8.1 (L) 8.5 - 10.5 mg/dL Total Protein 6.1 6.0 - 8.0 g/dL Albumin 2.6 (L) 3.2 - 5.3 g/dL Alkaline Phosphatase 70 39 - 130 U/L AST 25 0 - 41 U/L ALT 16 0 - 40 U/L Total bilirubin 1.7 (H) 0.3 - 1.2 mg/dL eGFR (CKD-EPI)non-race dependent 36 (L) >59 ml/min/1.73sq.m Lactate w/ Reflex Collection Time: 06/28/24 7:01 PM Result Value Ref Range Lactate w/ Reflex 1.6 0.4 - 2.0 mmol/L Procalcitonin Collection Time: 06/28/24 7:01 PM Result Value Ref Range Procalcitonin 0.33 (H) <0.05 ng/mL CBC auto differential Collection Time: 06/28/24 7:01 PM Result Value Ref Range White Blood Cells 13.8 (H) 4.0 - 11.0 X10E9/L RBC count 2.74 (L) 4.10 - 5.70 X10E12/L Hemoglobin 8.6 (L) 13.0 - 17.0 g/dL Hematocrit 25.7 (L) 39 - 49 % MCV 94 80 - 100 fL MCH 31.4 27 - 34 pg MCHC 33.6 32 - 36 g/dL RDW 15.0 11.5 - 15.0 % Platelets 252 150 - 450 X10E9/L MPV 9.3 7 - 12 fL % neutrophils 88.9 % % lymphocytes 3.3 % % monocytes 7.4 % % eosinophils 0.1 % % Basophils 0.3 % Neutrophils Absolute (A) 12.3 (H) 1.5 - 6.6 X10E9/L Lymphocytes Absolute 0.5 (L) 1.0 - 3.5 X10E9/L Monocytes Absolute 1.0 (H) 0 - 0.9 X10E9/L Eosinophils Absolute 0.0 0.0 - 0.4 X10E9/L Basophils Absolute 0.0 0.0 - 0.2 X10E9/L Protime & INR Collection Time: 06/28/24 7:01 PM Result Value Ref Range Protime 34.3 (H) 9.8 - 13.2 sec Inr 3.1 (H) 0.8 - 1.1 APTT Collection Time: 06/28/24 7:01 PM Result Value Ref Range aPTT 40 (H) 26 - 37 sec Magnesium Collection Time: 06/28/24 7:01 PM Result Value Ref Range Magnesium 1.9 1.8 - 2.6 mg/dL Fibrinogen Collection Time: 06/28/24 7:01 PM Result Value Ref Range Fibrinogen 644 (H) 190 - 480 mg/dL Urinalysis Collection Time: 06/28/24 9:00 PM Result Value Ref Range Color ALISSA (A) YELLOW^YELLOW Turbidity HAZY (A) CLEAR^CLEAR Specific gravity 1.015 1.003 - 1.035 Nitrite Negative Negative^Negative Ph urine 6.0 5.0 - 8.5 Leukocyte esterase Negative Negative^Negative Protein 100 (A) Negative^Negative mg/dL Glucose, Ur >1,000 (A) Negative^Negative mg/dL Ketones urine Negative Negative^Negative mg/dL Urobilinogen 0.2 <1.1 eu/dL Bilirubin, urine Negative Negative^Negative Hemoglobin Large (A) Negative^Negative WBC 0 0 - 5 /hpf RBC 10 (H) 0 - 5 /hpf Hemoglobin Collection Time: 06/28/24 9:15 PM Result Value Ref Range Hemoglobin 7.9 (L) 13.0 - 17.0 g/dL Hematocrit Collection Time: 06/28/24 9:15 PM Result Value Ref Range Hematocrit 23.3 (L) 39 - 49 % Type and screen(includes indirect zoie) Collection Time: 06/28/24 11:33 PM Result Value Ref Range ABO A RH Positive Antibody Screen Negative Type and screen(includes indirect zoie) Collection Time: 06/29/24 1:30 AM Result Value Ref Range ABO A RH Positive Antibody Screen Negative Crossmatch RBC:Number of Units: 1 Collection Time: 06/29/24 1:30 AM Result Value Ref Range Blood component type [id number] Unit number [id number] Unit ABO O Unit RH POS Crossmatch Compatible Status of unit ISSUED Expiration Date BB Type Barcode 5100 ABO Rh Repeat Collection Time: 06/29/24 1:30 AM Result Value Ref Range ABO A RH Positive Crossmatch RBC: Collection Time: 06/29/24 1:30 AM Result Value Ref Range Blood component type [id number] Unit number [id number] Unit ABO O Unit RH POS Crossmatch Compatible Status of unit SELECTED Expiration Date BB Type Barcode 5100 Crossmatch RBC: Collection Time: 06/29/24 1:30 AM Result Value Ref Range Blood component type [id number] Unit number [id number] Unit ABO O Unit RH POS Crossmatch Compatible Status of unit SELECTED Expiration Date BB Type Barcode 5100 Crossmatch RBC: Collection Time: 06/29/24 1:30 AM Result Value Ref Range Blood component type [id number] Unit number [id number] Unit ABO O Unit RH POS Crossmatch Compatible Status of unit SELECTED Expiration Date [id number] BB Type Barcode 5100 Crossmatch RBC: Collection Time: 06/29/24 1:30 AM Result Value Ref Range Blood component type [id number] Unit number [id number] Unit ABO O Unit RH POS Status of unit ISSUED Expiration Date [id number] BB Type Barcode 5100 Crossmatch RBC: Collection Time: 06/29/24 1:30 AM Result Value Ref Range Blood component type [id number] Unit number [id number] Unit ABO O Unit RH POS Status of unit ISSUED Expiration Date [id number] BB Type Barcode 5100 Crossmatch RBC: Collection Time: 06/29/24 1:30 AM Result Value Ref Range Blood component type [id number] Unit number [id number] Unit ABO O Unit RH POS Status of unit ISSUED Expiration Date [id number] BB Type Barcode 5100 Crossmatch RBC: Collection Time: 06/29/24 1:30 AM Result Value Ref Range Blood component type [id number] Unit number [id number] Unit ABO O Unit RH POS Status of unit /RELEASED Expiration Date [id number] BB Type Barcode 5100 Crossmatch RBC: Collection Time: 06/29/24 1:30 AM Result Value Ref Range Blood component type [id number] Unit number [id number] Unit ABO O Unit RH POS Status of unit /RELEASED Expiration Date [id number] BB Type Barcode 5100 Crossmatch RBC: Collection Time: 06/29/24 1:30 AM Result Value Ref Range Blood component type [id number] Unit number [id number] Unit ABO O Unit RH POS Status of unit /RELEASED Expiration Date [id number] BB Type Barcode 5100 Protime & INR Collection Time: 06/29/24 1:37 AM Result Value Ref Range Protime 18.1 (H) 9.8 - 13.2 sec Inr 1.6 (H) 0.8 - 1.1 APTT Collection Time: 06/29/24 1:37 AM Result Value Ref Range aPTT 33 26 - 37 sec CBC auto differential Collection Time: 06/29/24 1:37 AM Result Value Ref Range White Blood Cells 10.6 4.0 - 11.0 X10E9/L RBC count 2.19 (L) 4.10 - 5.70 X10E12/L Hemoglobin 6.9 (LL) 13.0 - 17.0 g/dL Hematocrit 20.6 (L) 39 - 49 % MCV 94 80 - 100 fL MCH 31.4 27 - 34 pg MCHC 33.4 32 - 36 g/dL RDW 14.5 11.5 - 15.0 % Platelets 186 150 - 450 X10E9/L MPV 9.3 7 - 12 fL % neutrophils 86.0 % % lymphocytes 5.3 % % monocytes 8.6 % % eosinophils 0.0 % % Basophils 0.1 % Neutrophils Absolute (A) 9.1 (H) 1.5 - 6.6 X10E9/L Lymphocytes Absolute 0.6 (L) 1.0 - 3.5 X10E9/L Monocytes Absolute 0.9 0 - 0.9 X10E9/L Eosinophils Absolute 0.0 0.0 - 0.4 X10E9/L Basophils Absolute 0.0 0.0 - 0.2 X10E9/L Ethanol Collection Time: 06/29/24 1:37 AM Result Value Ref Range Ethanol Lvl <0.01 0.00 - 0.08 g/dL Amylase Collection Time: 06/29/24 1:37 AM Result Value Ref Range Amylase 14 (L) 28 - 100 U/L Comprehensive metabolic panel Collection Time: 06/29/24 1:37 AM Result Value Ref Range Sodium 140 134 - 146 mmol/L Potassium, Bld 3.6 3.5 - 5.0 mmol/L Chloride 111 (H) 98 - 109 mmol/L CO2 21 (L) 22 - 32 mmol/L Anion gap 8 5 - 15 mmol/L BUN 16 5 - 27 mg/dL Creatinine 1.46 (H) 0.60 - 1.30 mg/dL Glucose 105 (H) 65 - 99 mg/dL Calcium 6.9 (LL) 8.5 - 10.5 mg/dL Total Protein 4.5 (L) 6.0 - 8.0 g/dL Albumin 2.4 (L) 3.2 - 5.3 g/dL Alkaline Phosphatase 63 39 - 130 U/L AST 15 0 - 41 U/L ALT 9 0 - 40 U/L Total bilirubin 0.8 0.3 - 1.2 mg/dL eGFR (CKD-EPI)non-race dependent 49 (L) >59 ml/min/1.73sq.m Fibrinogen Collection Time: 06/29/24 1:37 AM Result Value Ref Range Fibrinogen 501 (H) 190 - 480 mg/dL Lipase Collection Time: 06/29/24 1:37 AM Result Value Ref Range Lipase 8 (L) 11 - 82 U/L POCT Electrolytes w/ BUN, Creat, Gluc, Hematocrit Collection Time: 06/29/24 1:38 AM Result Value Ref Range Portable sodium 143 134 - 146 mmol/L Portable potassium 3.5 3.5 - 5.0 mmol/L Portable chloride 107 98 - 109 mmol/L CO2 21 (L) 22 - 32 mmol/L Portable glucose 103 (H) 65 - 99 mg/dL Portable bun 14 6 - 27 mg/dL Portable creatinine 1.7 (H) 0.7 - 1.2 mg/dL eGFR (CKD-EPI)non-race dependent 41 (L) >59 ml/min/1.73sq.m Portable hematocrit 20 (L) 39 - 49 % Drug Screen, Urine Collection Time: 06/29/24 2:06 AM Result Value Ref Range Amphetamine/methamphetamine Negative Negative^Negative Barbiturate Screen, Ur Negative Negative^Negative Benzodiazepine Screen, Urine Negative Negative^Negative THC, urine Negative Negative^Negative Cocaine (metabolite) Negative Negative^Negative Opiate Quant, Ur Negative Negative^Negative Phencyclidine Negative Negative^Negative Oxycodone Negative Negative^Negative Methadone Negative Negative^Negative Ecstasy Negative Negative^Negative Urinalysis Collection Time: 06/29/24 2:06 AM Result Value Ref Range Color ALISSA (A) YELLOW^YELLOW Turbidity CLEAR CLEAR^CLEAR Specific gravity 1.015 1.003 - 1.035 Nitrite Negative Negative^Negative Ph urine 5.5 5.0 - 8.5 Leukocyte esterase Negative Negative^Negative Protein 50 (A) Negative^Negative mg/dL Glucose, Ur >1,000 (A) Negative^Negative mg/dL Ketones urine Negative Negative^Negative mg/dL Urobilinogen <1.1 <1.1 eu/dL Bilirubin, urine Negative Negative^Negative Hemoglobin Large (A) Negative^Negative Microspopic Urine URINE RECEIVED WITHOUT PRESERVATIVE-DELAYS IN TRANSPORT MAY AFFECT RESULTS.INTERPRET WITH CAUTION AND CLINICAL CORRELATION IS RECOMMENDED. Mucus, UA PRESENT (A) NONE^NONE RBC >720 (H) 0 - 5 /hpf Squamous epithelium 1 0 - 5 /hpf WBC 2 0 - 5 /hpf Lactate w/ Reflex Collection Time: 06/29/24 2:11 AM Result Value Ref Range Lactate w/ Reflex 0.7 0.4 - 2.0 mmol/L Cultures: Microbiology Results (last 21 days) Procedure Component Value - Date/Time Urine culture [[id number]] Resulted: 06/29/24 0320 Lab Status: In process Specimen: Urine Updated: 06/29/24 0331 Urine culture [[id number]] Collected: 06/28/24 2100 Lab Status: No result Specimen: Urine Blood culture, peripheral #2 [[id number]] Collected: 06/28/24 1907 Lab Status: In process Specimen: Blood, Peripheral Draw Updated: 06/28/241913 Blood culture, peripheral #1 [[id number]] Collected: 06/28/24 1859 Lab Status: In process Specimen: Blood, Peripheral Draw Updated: 06/28/241913 SARS/FLU A+B/RSV by NAAT/Molecular (M4RT Collection Tube) [[id number]] Collected: 06/28/24 1810 Lab Status: Final result Specimen: Nasopharynx Updated: 06/28/241946 FLU A PCR Negative FLU B PCR Negative RSV by PCR Negative SARS CoV 2 BY PCR Not Detected Comment: NOTE The Xpert Xpress SARS-CoV-2/Flu/RSV Plus test is a rapid, multiplexed real-time RT-PCR test intended for the simultaneous qualitative detection and differentiation of SARS-CoV-2, influenza A, influenza B and respiratory syncytial virus (RSV) viral RNA from individuals suspected of respiratory viral infection consistent with COVID-19 by their healthcare provider. This test has not been validated in asymptomatic patients. The Xpert Xpress SARS-CoV-2 test is intended for use by qualified and trained operators who are performing tests using either [employer] or [employer] systems and is limited to laboratories that meet the CLIA requirements to perform high and moderate complexity tests. The Xpert Xpress SARS-CoV-2/Flu/RSV Plus is only for use under the Food and Drug Administration's Emergency Use Authorization. Results are for the simultaneous detection and differentiation of SARS-CoV-2, influenza A, influenza B and RSV nucleic acids in clinical specimens. SARS-CoV-2, influenza A, influenza B and RSV RNA identified by this test are generally detectable in upper respiratory samples during the acute phase of infection. Positive results are indicative of the presence of the identified virus, but do not rule out bacterial infection or co-infection with other pathogens not detected by this test. Clinical correlation with patient history and other diagnostic information is necessary to determine patient infection status. The agent detected may not be the definite cause of disease. Negative results do not preclude SARS-CoV-2, influenza A, influenza B and RSV infection and should not be used as the sole basis for treatment or other patient management decisions. Negative results must be combined with clinical observations, patient history and epidemiological information. An Invalid result may occur with specimen-associated inhibition unable to be resolved with specimen repeat. Fact Sheet for Healthcare Providers: https://www.fda.gov/media/783083/do wnload Fact Sheet for Patients: https://www.fda.gov/media/315851/do wnload Independently reviewed trauma specific results. Radiology Results Bedside FAST exam results: Not performed X-ray chest 1 view Result Date: 06/29/2024 Narrative: HISTORY: Pain, trauma COMPARISON: None FINDINGS: AP supine view of the chest was performed. Left-sided pacemaker with intact leads. Left basilar atelectasis. No overt vascular congestion. No significant pleural effusion or pneumothorax. Osseous structures are grossly intact. IMPRESSION: * No acute abnormality. Finalized by Ricardo Cueto MD on 06/29/2024 1:[address] abdomen and pelvis with contrast Result Date: 06/28/2024 Narrative: CT ABDOMEN AND PELVIS W CONT CLINICAL INFORMATION: Sepsis. COMPARISON: 06/26/24. PROCEDURE: Routine CT abdomen and pelvis obtained after the uncomplicated intravenous administration of contrast material. Multiplanar reformats obtained from the axial data. All CT scans at this facility use dose modulation, iterative reconstruction, and/or weight based dosing when appropriate to reduce radiation dose to as low as reasonably achievable. FINDINGS: Hepatobiliary: * No liver abnormalities. * No biliary dilatation. * Gallbladder visualized. Spleen: * Low-attenuation lesion in the spleen, difficult to characterize given its small size. Pancreas: * Normal. Genitourinary: * Adrenal glands are normal. * Right kidney demonstrates a nonspecific exophytic lesion measuring about 3.5 cm, 48 Hounsfield units. Follow-up imaging recommended to exclude renal cell carcinoma. * Extensive left-sided perinephric stranding. There are are several calcifications in the collecting system which may relate to recent stone fragmentation procedure with a large hematoma suspected measuring 13.5 x 7.0 cm in greatest dimension, some of which appears to be subcapsular, with intraluminal hyperattenuating foci possibly related to active extravasation of contrast. Moderate to severe left-sided collecting rotation, with a double-J stent, ureteral dilation, and several calculi in the distal left ureter, with a larger stone noted measuring about 1.2 cm or a grouping of very small stone debris present. * Bladder wall thickening possibly due to cystitis. There is a Jorgensen catheter with gas in the bladder. Gastrointestinal: * Fat-containing left inguinal hernia. No bowel obstruction. Appendix is normal. No dilated loops of small bowel are present. Aorta: * Atherosclerotic calcifications in the aorta and mesenteric vessels. Lymph nodes: * No lymphadenopathy. Soft tissues and osseous structures: * Degenerative changes. Old rib fractures. 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 IMPRESSION: * Postoperative changes in the left kidney, with hematoma possibly involving the subcapsular region of the kidney measuring 13.5 x 7.0 cm with small foci of hyperdense material, active extravasation of contrast in this region not excluded. Given fall a renal laceration would be difficult to exclude. * Hyperdense debris, stone fragments, and hydronephrosis left kidney noted with extensive perinephric stranding. The left ureter is markedly dilated where there is debris in the distal left ureter. * Bladder wall thickening, correlate for cystitis. * Indeterminate right renal mass, outpatient imaging recommended to exclude neoplasm. * Please see above for further details. Finalized by Fito Alexander MD on 06/28/2024 8:[address] facial bones without contrast Result Date: 06/28/2024 Narrative: CLINICAL INFORMATION: Facial trauma, blunt . COMPARISON: None. PROCEDURE: Routine CT maxillofacial obtained without contrast. Sagittal and coronal reformats were obtained from the axial data. All CT scans at this facility use dose modulation, iterative reconstruction, and/or weight based dosing when appropriate to reduce radiation dose to as low as reasonably achievable. FINDINGS: Old nasal bone injury, no acute fracture. No displaced maxillofacial fracture. Mild nasal septal deviation to the right. Sinuses are clear. Lens replacements. Orbital floors intact. Globes intact. IMPRESSION: * No acute maxillofacial fracture. Finalized by Fito Alexander MD on 06/28/2024 8:[address] cervical spine without contrast Result Date: 06/28/2024 Narrative: CT CERVICAL SPINE WO CONT CLINICAL INFORMATION: Neck trauma (Age >= 65y). COMPARISON: None. PROCEDURE: Routine cervical spine protocol CT was obtained without intravenous contrast. Sagittal and coronal reformatted images were obtained from the axial data. All CT scans at this facility use dose modulation, iterative reconstruction, and/or weight based dosing when appropriate to reduce radiation dose to as low as reasonably achievable. FINDINGS: No acute fracture. Incomplete fusion of the posterior elements of C1 which is a normal variant. Normal alignment. Endplate and facet degenerative changes most notably at C5-6. Vascular calcifications. Minimal scarring at the lung apices. Please note, if ligamentous or spinal cord injury is of clinical concern, suggest MR imaging or flexion-extension radiographs. IMPRESSION: * No acute fracture or significant malalignment. * Multilevel degenerative changes. Finalized by Fito Alexander MD on 06/28/2024 8:[address] brain without contrast Result Date: 06/28/2024 Narrative: CLINICAL INFORMATION: Head trauma, moderate-severe COMPARISON: None. PROCEDURE: Routine CT Head obtained without contrast. All CT scans at this facility use dose modulation, iterative reconstruction, and/or weight based dosing when appropriate to reduce radiation dose to as low as reasonably achievable. FINDINGS: Motion artifact degrades assessment. No acute intracranial hemorrhage. No mass effect or midline shift. No extra-axial fluid collections. The ventricles and sulci are prominent consistent with global atrophy. Low-attenuation areas identified in the periventricular white matter consistent with microvascular ischemia. No depressed calvarial fracture. IMPRESSION: * No acute intracranial findings by CT. Finalized by Fito Alexander MD on 06/28/2024 8:[address] abdomen and pelvis without contrast Result Date: 06/26/2024 Narrative: CT ABDOMEN PELVIS WO IV CONTRAST CLINICAL INFORMATION: 78 years old Male with hematuria. TECHNIQUE/PROCEDURE: CT Abdomen and Pelvis without contrast. All CT scans at this facility use dose modulation, iterative reconstruction, and/or weight based dosing when appropriate to reduce radiation dose to as low as reasonably achievable COMPARISON: No relevant prior studies available. FINDINGS: Lower chest: Cardiomegaly, coronary artery calcifications stenting Liver: Unremarkable. Gallbladder and bile ducts: Unremarkable. Spleen: Unremarkable. Pancreas: Unremarkable. Adrenal glands: Unremarkable. Kidneys and ureters: Abnormal postprocedural left kidney. There is broken up calculi throughout the kidney and dilated left ureter. There is high density in the dilated left collecting system and left ureter compatible with hemorrhage. There is a punctate focus of gas in the renal parenchyma which may be postprocedural versus infection. Significant inflammatory stranding about the left kidney. There is a small amount of high attenuation material just anterior to the superior aspect of the left kidney. The left ureteral stent is in place. The urinary bladder is decompressed. A 3.6 cm indeterminate right renal lesion. Bladder: Decompressed Reproductive organs: Unremarkable. Vasculature: Severe diffuse atherosclerotic disease. Peritoneum: No free air or free fluid Stomach and Bowel: Small and large bowel are normal in caliber. Appendix is unremarkable. Soft tissues: Fat-containing left inguinal hernia. Bones: Vertebral body heights are intact. Thoracolumbar degenerative findings. Diffuse idiopathic skeletal hyperostosis. Impression: * Severe left hydroureteronephrosis with extensive hemorrhagic contents in the collecting system. Patient is post procedure of presumed lithotripsy and ureteral stent placement. Fragments of calculus throughout the intrarenal collecting system/ureter. Significant perinephric inflammatory stranding as well as small amount of hemorrhage adjacent to the anterior aspect of the upper left kidney. There is a punctate focus of gas in the left renal parenchyma which could be postprocedural in nature or related to infection. * Indeterminant exophytic mass right kidney measuring 3.6 cm, recommend contrast enhanced MRI for further characterization on a nonemergent outpatient basis. Approved by:Janak Sanchez06/26/2024 6:00 AM. I, Rob Kellogg MD,have reviewed the image(s) and agree with the findings in this report. Electronically signed: Rob Kellogg MD. X-ray chest 1 view Result Date: 06/26/2024 Narrative: CHEST ONE VIEW COMPARISON: 03/05/2024 HISTORY: Weakness. Portable AP chest radiograph obtained. Impression: 1. The cardiomediastinal silhouette and pulmonary vasculature are stable. Left ICD. 2. No evidence for a pneumothorax, focal consolidation, or pleural effusion. Linear atelectasis in the left mid to lower lung zones. Electronically signed: Wilberto Brown. [place] in [place] Result Date: 06/19/2024 Narrative: CLINICAL INFORMATION: Cystoscopy, stent exchange FINDINGS: Fluoro Time: 40 sec Reference air kerma = 11.1 mGy. Number of images: 26 Impression: * Intraoperative fluoroscopy provided for stent exchange. Please note, no radiologist was present during the procedure. A radiologist reviewed the procedural images. Electronically signed: ASHLEY JOYCE MD. Cardiac device check - Remote Result Date: 05/30/2024 Narrative: By using the attestations below, the signing clinician agrees that I have read and verify that the documentation has been personally reviewed by me and ensure that the documentation accurately reflects the encounter. Routine EP device follow up as per schedule. Lead thresholds are stable. THORACIC IMPEDANCE VALUES [employer] reviewed and remains above threshold since last report 04/25/2024. HF Index is 19 and plateaued. TI is 56.5 and plateaued after trending upward. LOG OPERATIONS COORDINATOR RVP 85.0% Independently reviewed radiographic studies to evaluate for acute traumatic injuries. Physical Exam Physical Exam Constitutional He is oriented to person, place, and time. He appears well-developed. No distress. HENT Head Normocephalic and atraumatic. Eyes: Conjunctivae and EOM are normal. Neck Normal range of motion. No stridor and no tracheal deviation present. Cardiovascular: Normal rate and regular rhythm. Pulses: intact distal pulses Pulmonary/Chest: Effort normal. No stridor. No respiratory distress. Abdominal: He exhibits no distension. Soft. There is no abdominal tenderness. There is no guarding. Musculoskeletal: General: No tenderness. Cervical back: Normal range of motion. Neurological: He is oriented to person, place, and time. Skin: Skin is warm and dry. Psychiatric: He has a normal mood and affect. His behavior is normal. Airway: Intact Breathing: Intact Circulation: Intact GCS: 15 Eye: Verbal Motor 1 Does not open 1 No sounds 1 No movement 2 Opens to pain 2 Incomprehensible sounds 2 Extension w/pain 3 Opens to voice 3 Incoherent words 3 Flex w/ pain 4 Spontaneous 4 Confused / disoriented 4 Withdraw from pain 5 Oriented 5 Localizes to painful stimuli 6 Obeys commands C[employer] Rodri Hartley Med Journal 1994 Have you felt the need to cut down on your drinking or drug use? no Do you feel annoyed by people complaining about your drinking or drug use? no Do you ever feel guilty about your drinking or drug use? no Have you ever had a drink or used drugs first thing in the morning to steady your nerves or to get rid of a hangover? no Scorin or more positive terms indicate the need for a brief intervention or social work consult. ASSESSMENT / PLAN Neptali Loyola 78 y.o. male Mechanism: Fall from standing height Tertiary Examination: To be completed within 24hrs of admission if possible. Injuries/Traumatic issues: Fall from standing height -TraumaGram -CT Head- no acute intracranial findings -CT Cervical spine- no acute fracture, multilevel degenerative changes -CT Chest -CT Abdomen and pelvis- Postoperative changes in the left kidney, with hematoma possibly involving the subcapsular region of the kidney measuring 13.5 x 7.0 cm with small foci of hyperdense material, active extravasation of contrast in this region not excluded. -TraumaLabs -CMP -CBC -Coags, PT/INR -Amylase -Lipase -Ethanol -Urine Drug screen -Urinalysis -Trauma Meds -Ancef -Pepcid -Tetanus 2. Acute post traumatic pain - currently on IV tylenol, Fentanyl PRN, Lidoderm 3. Left Renal Hematoma - Consult Urology - Serial H/H - Bedrest - NPO 4. Acute hypotension and blood loss anemia - Transfuse 1u pRBC in the ED - Serial H/H - Monitor Hgb and transfuse PRN Comorbidities/Medical issues: Neuro- Pulm- Cardio- CAD, SC, HTN GI- - CKD, nephrolithiasis Heme- ID- MSK- Endo- Lytes- Lines and Tubes: Jorgensen, PIVs Nutrition: NPO Prophylaxis: SCDs, hold chemical ppx Disposition: SICU Medical Decision Making: High ER Procedures: 1. none CONSULTATIONS Consultations:Urology Did consultants call back in 10min: yes Trauma Team Present: [facility] Trauma Team Arrival time: 114 Attending: Dr. Ru Schwarz MD saw patient at arrival SWEETIE FOSTER MD 06/29/24 4:10 AM Trauma can be reached via Patient Touch Pager: [phone] Cosigned by Ru Schwarz MD at 06/29/2024 10:06 AM EST Associated attestation - Ru Schwarz MD - 06/29/2024 10:06 AM EST Attending Attestation: I saw the patient. I participated and was physically present during the critical/archer portions of the service. I was directly involved in the management and treatment plan of the patient. I reviewed the resident's note. Additional Notes/Findings: 78-year-old male initially seen at outside hospital after a ground level fall. Patient is on Eliquis and has had recent lithotripsy done on the left kidney. Patient had episode of hypotension and CT scan showed evidence of a left perinephric hematoma. Patient was transferred to [facility] as a level 2 trauma activation. Due to hypotension he was upgraded to a level 1 activation. Patient evaluated by ATLS protocol. Initial GCS of 15. To crystalloid infusion and then 1 PRBC. No additional testing was done. Patient to be admitted to the surgical intensive care unit with consultation to urology documented in this encounter [facility] 06-29-2024 Consult note Associated Order (s): IP CONSULT TO BLOW DOWN HELPER SICU Academic Critical Care CONSULTATION Name: Neptali Loyola Date: 06/29/2024 Length of Stay: 0 day(s) Chief Concern: Chief Complaint Patient presents with Trauma History of Present Illness Neptali Loyola is an 78 y.o. White or male presented to [facility] ED via EMS as a level 2 trauma after sustaining a fall from standing height. Patient was hypotensive upon arrival with SBP in the 80s and was started on IV fluids. Trauma level was upgraded to level 1 given hypotension. Patient reports he was at his son's home and fell forward in the bathroom after getting dizzy and stumbling. He denies hitting anything, however is unsure about loss of consciousness. Unable to give full details. Denies any acute pain including no abdominal pain, no chest pain, no pain in the head or extremities. Denies any shortness of breath, nausea, vomiting or fevers. Patient is on Eliquis and Plavix for history of AFib and CAD. Patient has reportedly been taking his medications per his son. At the outside ED, CT abdomen pelvis showed possible hematoma or active bleed concerning for renal laceration. Patient was given Kcentra and 1 unit PRBC for hypotension with improvement of blood pressure. He was transferred to surgical ICU for close monitoring. Upon arrival is noted hemodynamically stable, alert and oriented x3, only complaining of moderate pain left back. Past Medical History: Diagnosis Date Coronary artery disease Dementia ([facility]) Hemorrhoids Memory loss Myocardial infarction ([facility]) Urinary tract infection History reviewed. No pertinent surgical history. Review of Systems Constitutional: Negative for chills and fever. HENT: Negative for hearing loss and nosebleeds. Respiratory: Negative for chest tightness and shortness of breath. Cardiovascular: Negative for chest pain and palpitations. Gastrointestinal: Negative for abdominal pain, nausea and vomiting. Endocrine: Negative. Genitourinary: Negative. Skin: Negative for color change and wound. Neurological: Positive for dizziness. Negative for headaches. Psychiatric/Behavioral: Negative. No medications prior to admission. acetaminophen, 1,000 mg, intravenous, Q6H famotidine, 20 mg, intravenous, Q24H [facility] insulin lispro, 2-10 Units, subcutaneous, Q6H lidocaine, 1 patch, transdermal, Daily polyethylene glycol, 17 g, oral, Daily sennosides-docusate sodium, 2 tablet, oral, BID sodium chloride, 3 mL, intravenous, Q12H [facility] dextrose 5 % in water, 100 mL/hr dextrose 5 % in water, 100 mL/hr lactated ringer's, 100 mL/hr, Last Rate: 100 mL/hr (06/29/24 0336) sodium chloride 0.9 %, 10 mL/hr sodium chloride 0.9 %, 10 mL/hr sodium chloride 0.9 %, 10 mL/hr No Known Allergies History reviewed. No pertinent family history. Social History Socioeconomic History Marital status: Tobacco Use Smoking status: Former Current packs/day: 0.00 Types: Cigarettes Quit date: 2008 Years since quittin.1 Smokeless tobacco: Never Substance and Sexual Activity Alcohol use: Not Currently Drug use: Never Social Drivers of Health Financial Resource Strain: Patient Declined (04/24/2024) Received from [facility] Overall Financial Resource Strain (CARDIA) Difficulty of Paying Living Expenses: Patient declined Food Insecurity: No Food Insecurity (06/29/2024) Hunger Screening Food Insecurity - Worry: Never True Food Insecurity - Inability: Never True Transportation Needs: Patient Declined (04/24/2024) Received from [facility] PRAPARE - Transportation Lack of Transportation (Medical): Patient declined Lack of Transportation (Non-Medical): Patient declined Physical Activity: Patient Declined (04/24/2024) Received from [facility] Exercise Vital Sign Days of Exercise per Week: Patient declined Minutes of Exercise per Session: Patient declined Stress: Patient Declined (04/24/2024) Received from [facility] [employer] - Occupational Stress Questionnaire Feeling of Stress : Patient declined Social Connections: Patient Declined (04/24/2024) Received from [facility] Social Connection and Isolation Panel [NHANES] Frequency of Communication with Friends and Family: Patient declined Frequency of Social Gatherings with Friends and Family: Patient declined Attends Congregational Services: Patient declined Active Member of Clubs or Organizations: Patient declined Attends Club or Organization Meetings: Patient declined Marital Status: Patient declined Interpersonal Safety: Unknown (04/24/2024) Received from [facility] Humiliation, Afraid, Rape, and Kick questionnaire Fear of Current or Ex-Partner: Patient declined Emotionally Abused: Patient declined Sexually Abused: Patient declined Housing Instability: Patient Declined (04/24/2024) Received from [facility] Housing Stability Vital Sign Unable to Pay for Housing in the Last Year: Patient declined Number of Times Moved in the Last Year: 0 Homeless in the Last Year: Patient declined Vitals Temp: [36.8 C (98.2 F)-37.3 C (99.2 F)] 36.9 C (98.4 F) Pulse: [67-96] 79 Resp: [18-33] 23 BP: (77-136)/(44-69) 121/55 SpO2: [94 %-100 %] 95 % O2 Device: None (Room air) O2 Device: None (Room air) Intake/Output No intake/output data recorded. Physical Exam Physical Exam Constitutional: General: He is not in acute distress. Appearance: Normal appearance. He is normal weight. He is not ill-appearing or toxic-appearing. HENT: Head: Normocephalic and atraumatic. Right Ear: External ear normal. Left Ear: External ear normal. Mouth/Throat: Mouth: Mucous membranes are moist. Eyes: General: No scleral icterus. Conjunctiva/sclera: Conjunctivae normal. Pupils: Pupils are equal, round, and reactive to light. Cardiovascular: Rate and Rhythm: Normal rate and regular rhythm. Pulses: Normal pulses. Heart sounds: Normal heart sounds. Pulmonary: Effort: Pulmonary effort is normal. Breath sounds: Normal breath sounds. Abdominal: General: Abdomen is flat. Bowel sounds are normal. There is no distension. Palpations: Abdomen is soft. There is no mass. Tenderness: There is no abdominal tenderness. Musculoskeletal: General: No swelling, tenderness or deformity. Normal range of motion. Cervical back: Normal range of motion and neck supple. Skin: General: Skin is warm. Capillary Refill: Capillary refill takes less than 2 seconds. Coloration: Skin is not jaundiced or pale. Findings: No bruising. Neurological: General: No focal deficit present. Mental Status: He is alert and oriented to person, place, and time. Mental status is at baseline. Psychiatric: Mood and Affect: Mood normal. Thought Content: Thought content normal. Ventilator Invasive Hemodynamic [place] Labs Results from last 3 days Lab Units 06/29/2413606/28/24 1901 BUN mg/dL 16 20 CREATININE mg/dL 1.46* 1.90* POTASSIUM mmol/L 3.6 3.8 CO2 mmol/L 21* 23 CHLORIDE mmol/L 111* 108 MAGNESIUM mg/dL -- 1.9 AST U/L 15 25 ALT U/L 9 16 ALK PHOS U/L 63 70 LIPASE U/L 8* -- Results from last 3 days Lab Units 06/29/2413606/28/24 1901 INR 1.6* 3.1* PROTIME sec 18.1* 34.3* Results from last 3 days Lab Units 02/15/25 0137 02/211406/28/241900 WBC X10E9/L 10.6 -- 13.8* HEMOGLOBIN g/dL 6.9* 7.9* 8.6* HEMATOCRIT % 20.6* 23.3* 25.7* PLATELETS X10E9/L 186 -- 252 MCV fL 94 -- 94 MCH pg 31.4 -- 31.4 MCHC g/dL 33.4 -- 33.6 RDW % 14.5 -- 15.0 EOS ABS AUTO X10E9/L 0.0 -- 0.0 Microbiology Results Procedure Component Value Units Date/Time Urine culture [[id number]] Resulted: 06/29/24319 Specimen: Urine Updated: 06/29/24330 Blood culture, peripheral #2 [[id number]] Collected: 06/28/241906 Specimen: Blood, Peripheral Draw Updated: 06/28/241913 Blood culture, peripheral #1 [[id number]] Collected: 06/28/241858 Specimen: Blood, Peripheral Draw Updated: 06/28/241913 SARS/FLU A+B/RSV by NAAT/Molecular (M4RT Collection Tube) [[id number]] Collected: 06/28/241809 Specimen: Nasopharynx Updated: 06/28/241946 FLU A PCR Negative FLU B PCR Negative RSV by PCR Negative SARS CoV 2 BY PCR Not Detected Results from last 7 days Lab Units 06/29/24 0137 06/28/241900 GLUCOSE mg/dL 105* 137* Medications acetaminophen, 1,000 mg, intravenous, Q6H famotidine, 20 mg, intravenous, Q24H [facility] insulin lispro, 2-10 Units, subcutaneous, Q6H lidocaine, 1 patch, transdermal, Daily polyethylene glycol, 17 g, oral, Daily sennosides-docusate sodium, 2 tablet, oral, BID sodium chloride, 3 mL, intravenous, Q12H [facility] dextrose 5 % in water, 100 mL/hr dextrose 5 % in water, 100 mL/hr lactated ringer's, 100 mL/hr, Last Rate: 100 mL/hr (06/29/24335) sodium chloride 0.9 %, 10 mL/hr sodium chloride 0.9 %, 10 mL/hr sodium chloride 0.9 %, 10 mL/hr Microbiology Results Procedure Component Value Units Date/Time Urine culture [[id number]] Resulted: 06/29/24319 Specimen: Urine Updated: 06/29/24330 Blood culture, peripheral #2 [[id number]] Collected: 06/28/241906 Specimen: Blood, Peripheral Draw Updated: 06/28/241913 Blood culture, peripheral #1 [[id number]] Collected: 06/28/24 185 Specimen: Blood, Peripheral Draw Updated: 06/28/241913 SARS/FLU A+B/RSV by NAAT/Molecular (M4RT Collection Tube) [[id number]] Collected: 06/28/241809 Specimen: Nasopharynx Updated: 06/28/241946 FLU A PCR Negative FLU B PCR Negative RSV by PCR Negative SARS CoV 2 BY PCR Not Detected Lines/Drains Peripheral IV 06/28/24 Posterior;Right Hand (Active) Line Status No blood return;Saline locked;Flushed;Alcohol sponge cap changed;Connections checked/tightened 06/29/24319 Site Assessment Clean;Dry;Intact 06/29/24319 Dressing Type Occlusive;Transparent 06/29/24319 Dressing Status Clean;Dry;Intact 06/29/24319 Specimen Obtained Yes 06/28/241804 Specimen Status Sent for analysis 06/28/241804 Amount Drawn (mL) 10 mL 06/28/241804 Peripheral IV 06/28/24 Left Antecubital (Active) Line Status Blood return noted;Flushed;Infusing;Connections checked/tightened 06/29/24319 Site Assessment Clean;Dry;Intact 06/29/24319 Dressing Type Occlusive;Transparent 06/29/24319 Dressing Status Clean;Dry;Intact 06/29/24319 Dressing Intervention Initial dressing 06/28/241999 Dressing Change Due (Non-Gauze) 07/05/24 06/28/241999 Urinary Catheter 06/28/24 Single lumen (Active) Catheter Status Patent 06/29/24319 Site Assessment Clean;Skin intact;Bleeding 06/29/24319 Collection Container Standard drainage bag/container 06/29/24319 Securement Method Securing device (Describe) 06/29/24319 Tamper Evident Seal Intact Yes 06/29/24319 Reason for Continuing Strict I&O in critically ill patient 06/29/24319 Urine Color Other (Comment) 06/29/24 0320 Urine Appearance Cloudy 06/29/24 0320 ACTIVE PROBLEM LIST: Fall from standing Left renal hematoma Hypotension Acute blood loss anemia Eliquis coagulopathy status post reversal with Kcentra CKD ASSESSMENT/PLAN: Neptali Loyola is a 78 y.o. year-old male s/p fall, has left renal hematoma. 1. Neuro: Sedation: None Analgesia: IV Tylenol, fentanyl, lidocaine patch 2. Cardiovascular: Cardiac Code Status: Full Code Continuous cardiac monitoring Scheduled Meds: None PRN Meds: None PMH: CAD, hypertension, hyperlipidemia, previous SC, AFib Home meds: Eliquis, Plavix 3. Resp: Breathing on: Room air Continuous pulse oximetry PMH: 4. GI: Diet: Adult diet NPO 5. Renal: Left renal hematoma Urology consult Electrolytes - daily electrolyte replacement as needed Daily BMP Lab Results Component Value Date GLU 105 (H) 06/29/2024 CALCIUM 6.9 (LL) 06/29/2024 SODIUM 140 06/29/2024 K 3.6 06/29/2024 CO2 21 (L) 06/29/2024 BUN 16 06/29/2024 CREATININE 1.46 (H) 06/29/2024 Phos/Mag/Tom Lab Results Component Value Date MG 1.9 06/28/2024 CALCIUM 6.9 (LL) 06/29/2024 Fluids Maintenance fluids: LR 100 mL/hr UOP: 24 hr UOP: Not available Intake/Output Summary (Last 24 hours) at 06/29/2024 0345 Last data filed at 06/29/2024 0140 Gross per 24 hour Intake -- Output 300 ml Net -300 ml PMH: CKD, nephrolithiasis PSH: Left Lithotripsy with stent placement 06/19/24. 6. Heme: Left renal hematoma Bedrest trend hemoglobin q.6 and transfuse as needed No anticoagulation at this time Reversal: Kcentra Daily CBC Lab Results Component Value Date HGB 6.9 (LL) 06/29/2024 HCT 20.6 (L) 06/29/2024 MCV 94 06/29/2024 PLT 186 06/29/2024 Coags Lab Results Component Value Date INR 1.6 (H) 06/29/2024 PROTIME 18.1 (H) 06/29/2024 Continue to monitor for signs of active bleeding with transfusion PRN for Hb < 7. Received 1 unit PRBC in trauma bay. 7. ID: Temp (24hrs), Av C (98.6 F), Min:36.8 C (98.2 F), Max:37.3 C (99.2 F) Daily CBC Lab Results Component Value Date WBC 10.6 06/29/2024 Antibiotics: Not indicated Continue to monitor for signs of active or worsening infection PMH: 8. Endo: Glucose Date Value Ref Range Status 06/29/2024 105 (H) 65 - 99 mg/dL Final Goal blood glucose <180 Insulin sliding scale as needed 9. MS: Bedrest for now. PT OT when cleared by trauma team. PMH: 10: Prophylaxis: DVT prophylaxis: SCD's while in bed, hold chemical prophylaxis. Resp prophylaxis: Not indicated Stress ulcer prophylaxis: Pepcid 11. Lines: Jorgensen catheter Peripheral IV Dispo: Critical, remain in SICU Fransico Villagomez MD General Surgery Resident, PGY-3 06/29/24 Cosigned by Ru Schwarz MD at 06/29/2024 10:06 AM EST Associated attestation - Ru Schwarz MD - 06/29/2024 10:06 AM EST Surgical Critical Care Attending: I spent 25 minutes providing critical care services and making complex medical decisions for this critically ill patient. This patient remains critically ill and requires constant monitoring and titration of care by critical care hand stamper. Failure to do so may result in further organ system failure with imminent deterioration or . This time includes examining the patient, reviewing patient data, discussions with other providers, and speaking to family members. This does not include time spent performing any procedures. ACTIVE PROBLEM LIST: Fall from standing Left renal hematoma Hypotension Acute blood loss anemia Eliquis coagulopathy status post reversal with Kcentra CKD Patient admitted for close cardiopulmonary monitoring. Urology to be consulted. Will follow with serial H&H RU SCHWARZ MD Trauma/Surgical Critical Care 06/29/2024 10:06 AM [facility] Work Phone: 06-29-2024 Emergency department Note Pt Blood infusion rate changed to 200 ml/hr by Roxane MCGINNIS, no adverse reactions noted from pt [facility] 06-29-2024 Emergency department Note Pt Blood infusion rate changed to 200 ml/hr by Roxane MCGINNIS, no adverse reactions noted from pt Bed: 18 Expected date: Expected time: Means of arrival: Comments: T1 Pt arrives to the ED as [place] Adult level two Trauma transfer. Pt is alert, and oriented and able to answer questions appropriately. Pt arrive with bilateral IVS, and a jorgensen catheter in place. Pt was upgraded to adult level 1 trauma by Trauma Team on arrival. Pt hypotensive on arrival. Chest xray obtained at this time EMS stretcher to bed Pt arrived to ED T1 Images from the original note were not included. [facility] - EMERGENCY DEPARTMENT Pt Name: Neptali Loyola Birthdate: 1945 Chief Complaint: No chief complaint on file. History of Present Illness: Initial evaluation by Dr. Jaimes (attending) and Dr. Chiang (resident) at 1:30 AM 78 y.o. male patient presents to the ED via EMS as a level 2 trauma alert for evaluation of fall. Patient presented to an outlying ER after his legs gave out and he fell. This was a ground level fall with head trauma, mainly his face. Patient was hypotensive when he first arrived to their ER there and he received fluids. CT abdomen and pelvis showed a possible hematoma with active bleed and concern for renal laceration. CT brain negative. Patient is on Eliquis and Plavix for Afib. He was given Kcentra prior to transfer. Patient also given 1 g rocephin. His hemoglobin dropped to 7.9 while he was there. On arrival here, patient is awake. He reports he has not been taking his Eliquis at home due to his lithotripsy. Patient currently does not complain of pain. He is unable to provide much information himself. Son gave history to senior branch manager. 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 and medical records Past Medical History: Past Medical History: Diagnosis Date Coronary artery disease Dementia ([facility]) Hemorrhoids Memory loss Myocardial infarction ([facility]) Urinary tract infection Past Surgical History: No past surgical history on file. Family History: No family history on file. Social History: Social History Socioeconomic History Marital status: Tobacco Use Smoking status: Former Current packs/day: 0.00 Types: Cigarettes Quit date: 2008 Years since quittin.1 Smokeless tobacco: Never Substance and Sexual Activity Alcohol use: Not Currently Drug use: Never Social Drivers of Health Financial Resource Strain: Patient Declined (04/24/2024) Received from [facility] Overall Financial Resource Strain (CARDIA) Difficulty of Paying Living Expenses: Patient declined Food Insecurity: No Food Insecurity (06/28/2024) Hunger Screening Food Insecurity - Worry: Never True Food Insecurity - Inability: Never True Transportation Needs: Patient Declined (04/24/2024) Received from [facility] TA - Transportation Lack of Transportation (Medical): Patient declined Lack of Transportation (Non-Medical): Patient declined Physical Activity: Patient Declined (04/24/2024) Received from [facility] Exercise Vital Sign Days of Exercise per Week: Patient declined Minutes of Exercise per Session: Patient declined Stress: Patient Declined (04/24/2024) Received from [facility] [employer] - Occupational Stress Questionnaire Feeling of Stress : Patient declined Social Connections: Patient Declined (04/24/2024) Received from [facility] Social Connection and Isolation Panel [NHANES] Frequency of Communication with Friends and Family: Patient declined Frequency of Social Gatherings with Friends and Family: Patient declined Attends Congregational Services: Patient declined Active Member of Clubs or Organizations: Patient declined Attends Club or Organization Meetings: Patient declined Marital Status: Patient declined Interpersonal Safety: Unknown (04/24/2024) Received from [facility] Humiliation, Afraid, Rape, and Kick questionnaire Fear of Current or Ex-Partner: Patient declined Emotionally Abused: Patient declined Sexually Abused: Patient declined Housing Instability: Patient Declined (04/24/2024) Received from [facility] Housing Stability Vital Sign Unable to Pay for Housing in the Last Year: Patient declined Number of Times Moved in the Last Year: 0 Homeless in the Last Year: Patient declined Review of Systems: Review of Systems Unable to perform ROS: Other Physical Exam: ED Triage Vitals Temp Pulse Resp BP SpO2 -- -- -- -- -- Temp src Heart Rate Source Patient Position BP Location FiO2 (%) -- -- -- -- -- Vitals: 06/29/24 0134 Pulse: 96 SpO2: 94% Physical Exam Vitals reviewed. Constitutional: General: He is not in acute distress. Appearance: He is not diaphoretic. HENT: Head: Normocephalic and atraumatic. Eyes: Conjunctiva/sclera: Conjunctivae normal. Pupils: Pupils are equal, round, and reactive to light. Comments: Pupils 1 mm bilaterally Cardiovascular: Rate and Rhythm: Normal rate. Pulses: Normal pulses. Carotid pulses are 2+ on the right side and 2+ on the left side. Radial pulses are 2+ on the right side and 2+ on the left side. Femoral pulses are 2+ on the right side and 2+ on the left side. Popliteal pulses are 2+ on the right side and 2+ on the left side. Dorsalis pedis pulses are 2+ on the right side and 2+ on the left side. Posterior tibial pulses are 2+ on the right side and 2+ on the left side. Heart sounds: Normal heart sounds. Comments: Pacemaker left upper chest wall Pulmonary: Effort: Pulmonary effort is normal. Breath sounds: Normal breath sounds. Abdominal: General: There is no distension. Palpations: Abdomen is soft. Musculoskeletal: Cervical back: Normal range of motion and neck supple. Comments: No tenderness to palpation of the midline cervical, thoracic, or lumbosacral spine. No tenderness to palpation of the paraspinal cervical, thoracic, or lumbosacral spine, as well. No tenderness, deformities, crepitus, or laxity noted with palpation. Skin: General: Skin is warm and dry. Capillary Refill: Capillary refill takes less than 2 seconds. Neurological: General: No focal deficit present. Mental Status: He is alert and oriented to person, place, and time. GCS: GCS eye subscore is 4. GCS verbal subscore is 5. GCS motor subscore is 6. Procedure: Procedures Re-evaluation: Re-Evaluation Medical Decision Making Amount and/or Complexity of Data Reviewed Labs: ordered. Radiology: Decision-making details documented in ED Course. ED Course: ED Course as of 06/29/24 0257 Sat Jun 29, 2024 0138 Patient is a 78-year-old male with a past medical history significant for atrial fibrillation, on Eliquis and Plavix, who was originally seen at an outside facility and transferred to our ED for trauma evaluation. Patient states earlier today he was sitting on his toilet at his son's house when he became lightheaded and dizzy, falling forward. Patient did recently have a lithotripsy with stent placed earlier this month at [facility]. CT at original facility demonstrated postop changes to left kidney with active extravasation. Patient reports he did fall onto his left side in addition to striking his face. Patient did get his Eliquis reversed with Kcentra. Urinalysis at the initial facility demonstrated a large amount of hemoglobin in patient's urine. On CT, there was concern for possible renal laceration as well as hydronephrosis of the left kidney. Patient already received 1 g Rocephin as well as 4650 units of Kcentra. Patient is alert and oriented x3. GCS 15. Trauma team was at bedside in the [facility]uma [place] at time of patient's arrival. Additional labs and imaging placed by Trauma surgery team. [TP] 0249 X-ray chest 1 view IMPRESSION: * No acute abnormality. [TP] 0253 Patient anemic 2/2 acute blood loss anemia. pRBCs ordered. Hgb 6.9 here. [TP] 0255 Patient accepted for admission to trauma team in the SICU with Dr. Schwarz. [TP] 0256 Hgb 6.9. Rest of labs pending at time of patient's admission to SICU. [TP] ED Course User Index [TP] Mookie Chiang DO Clinical Impressions as of 06/29/24 0257 Fall in home, initial encounter Acute blood loss anemia Shared Visit: 01:34 Ernesto BAKER (scribe) scribed for and in the presence of Dr. Jaimes who performed the above service. The doctor personally saw and evaluated the patient. The doctor discussed the management with the JUAN/Resident. The doctor reviewed the JUAN/Resident note, approved the management plan for this patient and takes responsibility for the medical care of the patient. Additional Notes/Findings: Neptali Loyola is a 78 y.o. male patient presenting to the ED for chief complaint of fall. Patient presenting as a level 2 trauma transfer. Exam findings as follows: Constitutional: Awake and alert HENT: Head normocephalic and atraumatic Eyes: conjunctiva unremarkable Cardiovascular: Heart rate regular Pulmonary: Easy work of breathing, speaking full sentences Abdominal: Flat and non-distended Skin: Warm and dry Musculoskeletal: Moving all extremities spontaneously Neurological: alert and oriented 3x . ED Disposition None ED Prescriptions None Scribe Attestation Dr. Fiona Herrera personally performed the services described in the documentation, as scribed by Ernesto Noel in my presence, and it is both accurate and complete. Resident Attestation: Dr. Fiona Herrera personally performed a [id number] diagnostic evaluation on this patient. I have repeated the critical/archer portions of the physical exam and concur with the resident s findings. I have reviewed all laboratory findings and imaging reports. I have reviewed the note authored by the resident and agree with the assessment and plan as written. Please note that portions of this note were completed with a voice recognition program. Efforts were made to edit the dictations but occasionally words are mis-transcribed. Ernesto Noel 06/29/24 0135 Mookie Chiang DO Resident 06/29/24 0150 Ernesto Noel 06/29/24 0340 Mookie Chiang DO Resident 06/29/24 0340 Cosigned by Antoine Burleson Do, MD at 06/30/2024 6:33 AM EST Neptali Leandro (: 45) - Level [address] Schwarz, Fall / Renal Lac 78M, Hx: Afib on Eliquis. Patient had recent lithotripsy with stent earlier this month (at [facility]). CT showing post-op changes left kidney, active extravasation. Dr. Schwarz reviewed CT. It was a ground level fall onto his left side, also striking his face. [place] to reverse his Eliquis before sending patient. Vitals: 108/44, HR 78, RR 22, 98% on RA. 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, 1700mL LR IV in R hand and RAC Jorgensen in place, very little output Hbg initial 8.6, now 7.9, HCT 23.3 Urine showed large hemoglobin CT abd pelvis showed possible hematoma, with active bleed Possible renal laceration Hydronephrosis L kidney CT facial bones neg, CT cervical neg, CT brain neg On eliquis and plavix 1G Rocephin given, Kcentra 4650 units given 105/50 on departure Alert, oriented but occasionally forgetful Left @ 0035 Bed: T1 Expected date: Expected time: Means of arrival: [facility] Comments: 78 y/o male A&Ox4 [place] Level 2 trauma transfer HR 65 97% RA RR 16 95/49 500mL bolus initiated by EMS ETA 10 min documented in this encounter [facility] 06-29-2024 Emergency department Note Bed: 18 Expected date: Expected time: Means of arrival: Comments: T1 [facility] 06-29-2024 Emergency department Triage note Pt arrives to the ED as [place] Adult level two Trauma transfer. Pt is alert, and oriented and able to answer questions appropriately. Pt arrive with bilateral IVS, and a jorgensen catheter in place. Pt was upgraded to adult level 1 trauma by Trauma Team on arrival. Pt hypotensive on arrival. [facility] 06-29-2024 Emergency department Note Chest xray obtained at this time [facility] 06-29-2024 Emergency department Note EMS stretcher to bed [facility] 06-29-2024 Emergency department Note Pt arrived to ED T1 [facility] 06-29-2024 Physician Emergency department Note Images from the original note were not included. [facility] - EMERGENCY DEPARTMENT Pt Name: Neptali Loyola Birthdate: 1945 Chief Complaint: No chief complaint on file. History of Present Illness: Initial evaluation by Dr. Jaimes (attending) and Dr. Chiang (resident) at 1:30 AM 78 y.o. male patient presents to the ED via EMS as a level 2 trauma alert for evaluation of fall. Patient presented to an [facility] ER after his legs gave out and he fell. This was a ground level fall with head trauma, mainly his face. Patient was hypotensive when he first arrived to their ER there and he received fluids. CT abdomen and pelvis showed a possible hematoma with active bleed and concern for renal laceration. CT brain negative. Patient is on Eliquis and Plavix for Afib. He was given Kcentra prior to transfer. Patient also given 1 g rocephin. His hemoglobin dropped to 7.9 while he was there. On arrival here, patient is awake. He reports he has not been taking his Eliquis at home due to his lithotripsy. Patient currently does not complain of pain. He is unable to provide much information himself. Son gave history to senior branch manager. 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 and medical records Past Medical History: Past Medical History: Diagnosis Date Coronary artery disease Dementia ([facility]) Hemorrhoids Memory loss Myocardial infarction ([facility]) Urinary tract infection Past Surgical History: No past surgical history on file. Family History: No family history on file. Social History: Social History Socioeconomic History Marital status: Tobacco Use Smoking status: Former Current packs/day: 0.00 Types: Cigarettes Quit date: 2008 Years since quittin.1 Smokeless tobacco: Never Substance and Sexual Activity Alcohol use: Not Currently Drug use: Never Social Drivers of Health Financial Resource Strain: Patient Declined (04/24/2024) Received from [facility] Overall Financial Resource Strain (CARDIA) Difficulty of Paying Living Expenses: Patient declined Food Insecurity: No Food Insecurity (06/28/2024) Hunger Screening Food Insecurity - Worry: Never True Food Insecurity - Inability: Never True Transportation Needs: Patient Declined (04/24/2024) Received from [facility] TA - Transportation Lack of Transportation (Medical): Patient declined Lack of Transportation (Non-Medical): Patient declined Physical Activity: Patient Declined (04/24/2024) Received from [facility] Exercise Vital Sign Days of Exercise per Week: Patient declined Minutes of Exercise per Session: Patient declined Stress: Patient Declined (04/24/2024) Received from [facility] [employer] - Occupational Stress Questionnaire Feeling of Stress : Patient declined Social Connections: Patient Declined (04/24/2024) Received from [facility] Social Connection and Isolation Panel [NHANES] Frequency of Communication with Friends and Family: Patient declined Frequency of Social Gatherings with Friends and Family: Patient declined Attends Congregational Services: Patient declined Active Member of Clubs or Organizations: Patient declined Attends Club or Organization Meetings: Patient declined Marital Status: Patient declined Interpersonal Safety: Unknown (04/24/2024) Received from [facility] Humiliation, Afraid, Rape, and Kick questionnaire Fear of Current or Ex-Partner: Patient declined Emotionally Abused: Patient declined Sexually Abused: Patient declined Housing Instability: Patient Declined (04/24/2024) Received from [facility] Housing Stability Vital Sign Unable to Pay for Housing in the Last Year: Patient declined Number of Times Moved in the Last Year: 0 Homeless in the Last Year: Patient declined Review of Systems: Review of Systems Unable to perform ROS: Other Physical Exam: ED Triage Vitals Temp Pulse Resp BP SpO2 -- -- -- -- -- Temp src Heart Rate Source Patient Position BP Location FiO2 (%) -- -- -- -- -- Vitals: 06/29/24 0134 Pulse: 96 SpO2: 94% Physical Exam Vitals reviewed. Constitutional: General: He is not in acute distress. Appearance: He is not diaphoretic. HENT: Head: Normocephalic and atraumatic. Eyes: Conjunctiva/sclera: Conjunctivae normal. Pupils: Pupils are equal, round, and reactive to light. Comments: Pupils 1 mm bilaterally Cardiovascular: Rate and Rhythm: Normal rate. Pulses: Normal pulses. Carotid pulses are 2+ on the right side and 2+ on the left side. Radial pulses are 2+ on the right side and 2+ on the left side. Femoral pulses are 2+ on the right side and 2+ on the left side. Popliteal pulses are 2+ on the right side and 2+ on the left side. Dorsalis pedis pulses are 2+ on the right side and 2+ on the left side. Posterior tibial pulses are 2+ on the right side and 2+ on the left side. Heart sounds: Normal heart sounds. Comments: Pacemaker left upper chest wall Pulmonary: Effort: Pulmonary effort is normal. Breath sounds: Normal breath sounds. Abdominal: General: There is no distension. Palpations: Abdomen is soft. Musculoskeletal: Cervical back: Normal range of motion and neck supple. Comments: No tenderness to palpation of the midline cervical, thoracic, or lumbosacral spine. No tenderness to palpation of the paraspinal cervical, thoracic, or lumbosacral spine, as well. No tenderness, deformities, crepitus, or laxity noted with palpation. Skin: General: Skin is warm and dry. Capillary Refill: Capillary refill takes less than 2 seconds. Neurological: General: No focal deficit present. Mental Status: He is alert and oriented to person, place, and time. GCS: GCS eye subscore is 4. GCS verbal subscore is 5. GCS motor subscore is 6. Procedure: Procedures Re-evaluation: Re-Evaluation Medical Decision Making Amount and/or Complexity of Data Reviewed Labs: ordered. Radiology: Decision-making details documented in ED Course. ED Course: ED Course as of 06/29/247 Sat Jun 29, 2024 0138 Patient is a 78-year-old male with a past medical history significant for atrial fibrillation, on Eliquis and Plavix, who was originally seen at an outside facility and transferred to our ED for trauma evaluation. Patient states earlier today he was sitting on his toilet at his son's house when he became lightheaded and dizzy, falling forward. Patient did recently have a lithotripsy with stent placed earlier this month at [facility]. CT at original facility demonstrated postop changes to left kidney with active extravasation. Patient reports he did fall onto his left side in addition to striking his face. Patient did get his Eliquis reversed with Kcentra. Urinalysis at the initial facility demonstrated a large amount of hemoglobin in patient's urine. On CT, there was concern for possible renal laceration as well as hydronephrosis of the left kidney. Patient already received 1 g Rocephin as well as 4650 units of Kcentra. Patient is alert and oriented x3. GCS 15. Trauma team was at bedside in the [facility] at time of patient's arrival. Additional labs and imaging placed by Trauma surgery team. [TP] 0249 X-ray chest 1 view IMPRESSION: * No acute abnormality. [TP] 0253 Patient anemic 2/2 acute blood loss anemia. pRBCs ordered. Hgb 6.9 here. [TP] 0255 Patient accepted for admission to trauma team in the SICU with Dr. Schwarz. [TP] 0256 Hgb 6.9. Rest of labs pending at time of patient's admission to SICU. [TP] ED Course User Index [TP] Mookie Chiang DO Clinical Impressions as of 06/29/24 0257 Fall in home, initial encounter Acute blood loss anemia Shared Visit: 01:34 Ernesto BAKER (scribe) scribed for and in the presence of Dr. Jaimes who performed the above service. The doctor personally saw and evaluated the patient. The doctor discussed the management with the JUAN/Resident. The doctor reviewed the JUAN/Resident note, approved the management plan for this patient and takes responsibility for the medical care of the patient. Additional Notes/Findings: Neptali Loyola is a 78 y.o. male patient presenting to the ED for chief complaint of fall. Patient presenting as a level 2 trauma transfer. Exam findings as follows: Constitutional: Awake and alert HENT: Head normocephalic and atraumatic Eyes: conjunctiva unremarkable Cardiovascular: Heart rate regular Pulmonary: Easy work of breathing, speaking full sentences Abdominal: Flat and non-distended Skin: Warm and dry Musculoskeletal: Moving all extremities spontaneously Neurological: alert and oriented 3x . ED Disposition None ED Prescriptions None Scribe Attestation Dr. Fiona Herrera personally performed the services described in the documentation, as scribed by Ernesto Noel in my presence, and it is both accurate and complete. Resident Attestation: Dr. Fiona Herrera personally performed a [id number] diagnostic evaluation on this patient. I have repeated the critical/archer portions of the physical exam and concur with the resident s findings. I have reviewed all laboratory findings and imaging reports. I have reviewed the note authored by the resident and agree with the assessment and plan as written. Please note that portions of this note were completed with a voice recognition program. Efforts were made to edit the dictations but occasionally words are mis-transcribed. Ernesto Noel 06/29/24 0135 Mookie Chiang DO Resident 06/29/24 0150 Ernesto Noel 06/29/24 034 Mookie Chiang DO Resident 06/29/24 034 Cosigned by Antoine Burleson Do, MD at 06/30/2024 6:33 AM EST [employer] 06-29-2024 Emergency department Note Neptali Loyola (: 45) - Level [address] Schwarz, Fall / Renal Lac 78M, Hx: Afib on Eliquis. Patient had recent lithotripsy with stent earlier this month (at [facility]). CT showing post-op changes left kidney, active extravasation. Dr. Schwarz reviewed CT. It was a ground level fall onto his left side, also striking his face. [place] to reverse his Eliquis before sending patient. Vitals: 108/44, HR 78, RR 22, 98% on RA. 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, 1700mL LR IV in R hand and RAC Jorgensen in place, very little output Hbg initial 8.6, now 7.9, HCT 23.3 Urine showed large hemoglobin CT abd pelvis showed possible hematoma, with active bleed Possible renal laceration Hydronephrosis L kidney CT facial bones neg, CT cervical neg, CT brain neg On eliquis and plavix 1G Rocephin given, Kcentra 4650 units given 105/50 on departure Alert, oriented but occasionally forgetful Left @ 0035 [facility] Note Bed: T1 Expected date: Expected time: [facility]: 78 y/o male A&Ox4 [place] Level 2 trauma transfer HR 65 97% RA RR 16 95/49 500mL bolus initiated by EMS [facility]TA [facility] Note [facility] 06-19-2024 Note [facility] 05-21-2024 Note [facility] 05-21-2024 Note [facility] 04-24-2024 Note [facility] 04-24-2024 Note [facility] 04-19-2024 Note [facility] 04-02-2024 Note [facility] 04-02-2024 Note [facility] 03-13-2024 Note [facility] 03-06-2024 Note [facility] 03-06-2024 Note [facility] 03-06-2024 Note [facility] 03-06-2024 Note [facility] 03-05-2024 Note [facility] 03-05-2024 Note [facility] 03-05-2024 Note [facility] 03-05-2024 Note [facility] 03-05-2024 Note [facility] 03-04-2024 Note [facility] 03-04-2024 Note [facility] 03-04-2024 Note Physical Therapy PM Cancellation note Monday03/04/2024 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 Attempted time : 14:08-14:10 [facility] 03-04-2024 Note [facility] 03-04-2024 Note [facility] 03-04-2024 Note [facility] 03-03-2024 Note [facility] 03-03-2024 Note Sent updates to Lino conn at the [place]. [facility] 03-02-2024 Note [facility] 03-02-2024 Note [facility] 03-02-2024 Note [facility] 03-02-2024 Note [facility] 03-01-2024 Note [facility] 03-01-2024 Note [facility] 03-01-2024 Note [facility] 03-01-2024 Note [facility] 02-29-2024 Note [facility] 02-29-2024 Note [facility] 02-29-2024 Note [facility] 02-29-2024 Note [facility] 02-29-2024 Note [facility] 02-29-2024 Note [facility] 02-29-2024 Note [facility] 02-28-2024 Note [facility] 02-28-2024 Note [facility] 02-28-2024 Note Physical Therapy Patient medically unstable, not appropriate for PT evaluation. Will follow up and evaluate as appropriate. Kuldeep Garces PT, DPT [facility] 02-28-2024 Note Occupational Therapy Name: Neptali Loyola Date of : 1945 Today's Date: 02/28/24 Pt is unable to be seen for therapy at this time secondary to Medically unstable per nsg . Check No Charge Time attempted: 908 [facility] 02-28-2024 Note Discharge Planning U pdate: 0906 Attempted to see patient but was unsuccessful as patient is currently having severe difficulty breathing & talking so they may possible be intubated soon if needed. OTM to follow. [facility] 02-28-2024 Note [facility] 02-28-2024 Note [facility] 02-27-2024 Note [facility] 02-27-2024 Note [facility] 02-27-2024 Note [facility] 02-27-2024 Note [facility] 02-26-2024 Note [facility] 02-26-2024 Note [facility] 02-09-2024 Note [facility] 01-10-2024 Note [facility] 01-10-2024 Note [facility] Evaluation + Plan note No data available for this section [facility] Evaluation note No assessment information [facility] Work Phone: Evaluation note Diagnosis Fall in home, initial encounter- Primary Fall in home, initial encounter Acute blood loss anemia Acute posthemorrhagic anemia [facility] No data available for this section [facility] InstructionsNot on filedocumented in this encounter [facility] No data available for this section [facility] Summary Purpose Family History No Family History Records Found Advance Directives No Advanced Directives Records Found Advance Directive Response Recorded Date/ Time Advance Directives No May 15, 2024 1:27pm Date Activated Date Inactivated Comments 06/29/2024 2:29 AM 07/04/2024 7:36 PM Date Activated Date Inactivated Comments 06/29/2024 2:29 AM 07/04/2024 7:36 PM Advance Directive Response Recorded Date/ Time Advance Directives No May 15, 2024 2:27pm Additional Source Comments Patient Care team informatio n (unrecognized section and content) Team Status: Inactive Member Role Status Dates Kelvin Langston MD Attending Provider Active Start: May 15, 2024 End: May 15, 2024 Shrimp Trawler Captain Relationship Specialty Start Date End Date Miguel Garcia APRN-LIONEL [address] [place] [address] PCP - General Family Medicine 02/22/24 Shrimp Trawler Captain Relationship Specialty Start Date End Date Miguel Garcia APRN-LIONEL [address] [place] [address] PCP - General Family Medicine 02/22/24 Team Status: Inactive Member Role Status Dates Kelvin Langston MD Attending Provider Active Start: August 29, 2024 End: August 29, 2024 (unrecognized sect ion and content) No Status Records FoundNo Status Records FoundNo Status Records FoundNo Status Records FoundNo Status Records Found INFORMATION SOURCE (unrecogn ized section and content) DATE CREATED AUTHOR 01/03/2024 Jose Daniel Horner [facility] DATE CREATED AUTHOR AUTHOR'S ORGANIZ ATION 07/17/2024 [facility] DATE CREATED AUTHOR AUTHOR'S ORGANIZ ATION 08/10/2024 [facility] DATE CREATED AUTHOR AUTHOR'S ORGANIZ ATION 09/01/2024 [facility] DATE CREATED AUTHOR AUTHOR'S ORGANIZ ATION 12/05/2024 [facility] Goals (unrecognized section and content) Goals may be documented in a n alternate section Reason for Visit (unrecogniz ed section and content) Reason Comments Trauma Specialty Diagnoses / Procedures Referred By Shasha t Referred To Contact Diagnoses Fall in home, initial encounter Ru Schwarz MD [address] [place] [address], [address] [place] [address] Phone: tel: fax: Referral ID Status Reason Start Date Expiration Date Visits Re quested Visits Authorized [id number] 1 Reason Onset Date Comments Blood in Urine 07/05/2024 Scheduled Active and Recently Administ ered Medications (unrecognized section and content) Medication Order 07/02/2024 07/03/2024 07/04/2024 amiodarone (PACERONE) tablet 200 mg 200 mg, oral, 2 times daily, First dose on 06/29/24 at 2100, Look-alike/sound-alike medication - verify indication for use. 0829 (Given - Provider: Kaylah Maxwell RN)2122 (Given - Provider: Jazmín Hansen RN) 902 (Given - Provider: Randolph Laguerre RN)2058 (Given - Provider: Zelda Vasquez RN) 1003 (Given - Provider: Arjun Buchanan RN) apixaban (ELIQUIS) tablet 5 mg 5 mg, oral, 2 times daily, First dose on 07/02/24 at 1015, Indication: Nonvalvular Atrial Fibrillation (NVAF) 1157 (Given - Provider: Kaylah Maxwell RN)2122 (Given - Provider: Jazmín Hansen RN) 902 (Given - Provider: Randolph Laguerre RN)2057 (Given - Provider: Zelda Vasquez RN) 1003 (Given - Provider: Arjun Buchanan, RN) atorvastatin (LIPITOR) tablet 80 mg 80 mg, oral, Nightly, First dose on Mon06/29/24 at 2200, Look-alike/sound-alike medication - verify indication for use. 2122 (Given - Provider: Jazmín Hansen RN) 2100 (Given - Provider: Zelda Vasquez, RN) carvediloL (COREG) tablet 3.125 mg 3.125 mg, oral, 2 times daily, First dose on Mon07/02/24 at 1015, Give with meal or snack. Look-alike/sound-alike medication - verify indication for use. 115 (Given - Provider: Kaylah Maxwell RN)2122 (Given - Provider: Jazmín Hansen RN) 902 (Given - Provider: Randolph Laguerre RN)2057 (Given - Provider: Zelda Vasquez RN) 1003 (Given - Provider: Arjun Buchanan RN) clopidogreL (PLAVIX) tablet 75 mg 75 mg, oral, Daily, First dose on Mon07/03/24 at 1115, Look-alike/sound-alike medication - verify indication for use. 1214 (Given - Provider: Randolph Laguerre RN) 100 (Given - Provider: Arjun Buchanan, RAS) famotidine (PEPCID) tablet 20 mg 20 mg, oral, Daily, First dose on Mon07/05/24 at 0900 famotidine (PF) (PEPCID) injection 20 mg (CANCELED) 20 mg, intravenous, Every 24 hours scheduled, First dose on 06/29/24 at 0900, ED to IP Admission, Pharmacy to adjust dose based on renal function. Dilute to total volume of 5 mL with 0.9% sod chl and administer IVP over 2 minutes., Indication: Stress Ulcer Prophylaxis 828 (Given - Provider: Kaylah Maxwell RN) 903 (Given - Provider: Randolph Laguerre, RAS) 1003 (Given - Provider: Arjun Buchanan, RN) insulin lispro (HumaLOG) injection 2-10 Units 2-10 Units, subcutaneous, Every 6 hours, First dose on 06/29/24 at 0600, ED to IP Admission, Daytime hyperglycemia dosing. For blood glucose 151-200 mg/dL, give 2 units. For blood glucose 201-250 mg/dL, give 4 units. For blood glucose 251-300 mg/dL, give 6 units. For blood glucose 301-350 mg/dL, give 8 units. For blood glucose 351-400 mg/dL, give 10 units. Give even if NPO or meals skipped. Do NOT give more often then every 4 hours when NPO. Notify prescriber if blood glucose greater than 400 mg/dL. Look-alike/sound-alike medication - verify indication for use. Prime with 2 units of insulin prior to administration. Prandial/supplemental Insulin. Pre-filled pens stable 28 days at room temperature. Insulin lispro should be administered within 15 minutes before or immediately after a meal. 0522 (Not Given - Provider: Jazmín Hansen RN - Reason: Order parameters not met)1243 (Given - Provider: Kaylah Maxwell RN - Comment: [phone] (Not Given - Provider: Kaylah Maxwell RN - Reason: Order parameters not met - Comment: [phone] (Not Given - Provider: Jazmín Hansen RN - Reason: Order parameters not met - Comment: B) 0515 (Not Given - Provider: Jazmín Hansen RN - Reason: Order parameters not met - Comment: B)1200 (Not Given - Provider: Randolph Laguerre RN - Reason: Order parameters not met)1800 (Not Given - Provider: Randolph Laguerre RN - Reason: Order parameters not met) 0003 (Not Given - Provider: Zelda Vasquez RN - Reason: Order parameters not met - Comment: BG 90)0600 (Not Given - Provider: Zelda Vasquez RN - Reason: Order parameters not met - Comment: BG 109)1200 (Not Given - Provider: Arjun Buchanan RN - Reason: Order parameters not met - Comment: 100) lidocaine (LIDODERM) 5 % 1 patch (CANCELED) 1 patch, transdermal, Administer over 12 Hours, Daily, First dose on 06/29/24 at 0400, ED to IP Admission, applied to affected area on 12 hrs/off 12 hours., Time to remove patch (If no time is entered, patch will be removed before the next patch is applied.): 4:00 PM 0522 (Hold - Provider: Jazmín Hansen RN - Reason: Patient/family refused) 0903 (Medication Applied - Provider: Randolph Laguerre RN)1600 (Canceled Entry - Provider: Randolph Laguerre RN) lidocaine (LIDODERM) 5 % 1 patch 1 patch, transdermal, Administer over 12 Hours, Daily, First dose (after last modification) on Amna 07/04/24 at 0900, ED to IP Admission, applied to affected area on 12 hrs/off 12 hours., Time to remove patch (If no time is entered, patch will be removed before the next patch is applied.): 9:00 PM 0900 (Not Given - Provider: Arjun Buchanan, RAS - Reason: Patient/family refused) memantine (NAMENDA) tablet 10 mg 10 mg, oral, 2 times daily, First dose on 06/29/24 at 2100 0829 (Given - Provider: Kaylah Maxwell, RAS)2122 (Given - Provider: Jazmín Hansen RN) 903 (Given - Provider: Randolph Laguerre RN)2057 (Given - Provider: Zelda Vasquez, RAS) 100 (Given - Provider: Arjun Buchanan, RAS) polyethylene glycol (GLYCOLAX) packet 17 g (CANCELED) 17 g, oral, Daily, First dose on 06/29/24 at 0900, ED to IP Admission, Look-alike/sound-alike medication - verify indication for use. Dissolve 1 packet (17 gm) in 8 ounces of water, juice, soda, coffee or tea. 828 (Given - Provider: Kaylah Maxwell RN) 899 (Given - Provider: Randolph Laguerre RN - Comment: multiple stools) polyethylene glycol (GLYCOLAX) packet 17 g 17 g, oral, 2 times daily, First dose (after last modification) on Mon07/03/24 at 2100, ED to IP Admission, Look-alike/sound-alike medication - verify indication for use. Dissolve 1 packet (17 gm) in 8 ounces of water, juice, soda, coffee or tea. 2057 (Given - Provider: Zelda Vasquez, RAS) 100 (Given - Provider: Arjun Buchanan, RN) sennosides-docusate sodium (SENOKOT-S) 8.6-50 mg 2 tablet 2 tablet, oral, 2 times daily, First dose on Mon06/29/24 at 0900, ED to IP Admission 0829 (Given - Provider: Kaylah Maxwell, RN)2122 (Given - Provider: Jazmín Hansen, RN) 09 (Given - Provider: Randolph Laguerre, RN)2057 (Given - Provider: Zelda Vasquez, RAS) 1003 (Given - Provider: Arjun Buchanan, RAS) sodium chloride 0.9 % flush 3 mL 3 mL, intravenous, Every 12 hours scheduled, First dose on 06/29/24 at 0900, ED to IP Admission 0830 (Given - Provider: Kaylah Maxwell, RAS)2122 (Given - Provider: Jazmín Hansen RN) 09 (Given - Provider: Randolph Laguerre, RAS)2057 (Given - Provider: Zelda Vasquez, RAS) 0900 (Given - Provider: Arjun Buchanan, RAS) spironolactone (ALDACTONE) tablet 12.5 mg 12.5 mg, oral, Nightly, First dose on Mon07/02/24 at 2200 2122 (Given - Provider: Jazmín Hansen RN) 2100 (Given - Provider: Zelda Vasquez, RAS) PRN Medication Order 07/02/2024 07/03/2024 07/04/2024 acetaminophen (TYLENOL EXTRA STRENGTH) tablet 1,000 mg 1,000 mg, oral, Every 6 hours PRN, mild pain - pain scale 1-3, headaches, temperature greater than 38 C, moderate pain - pain scale 4-6, Starting on Mon07/02/24 at 1008 calcium gluconate 3,000 mg in sodium chloride 0.9 % 100 mL IVPB(Linked Group 1) 3,000 mg, intravenous, at 130 mL/hr, Administer over 60 Minutes, As needed, for ionized calcium level less than 3 mg/dL, Starting on Mon06/29/24 at 0316, ED to IP Admission, CALL PHYSICIAN if this dose is administered. Recheck ionized calcium 6 hours after infusion. Hold calcium replacement for phosphorus greater than 5.5 mg/dL. VESICANT (RED) calcium gluconate IVPB 1000 mg/50 mL (20 mg/mL premix)(Linked Group 1) 1,000 mg, intravenous, at 50 mL/hr, Administer over 60 Minutes, As needed, for ionized calcium level 3.5 to 4.4 mg/dL, Starting on 06/29/24 at 0316, ED to IP Admission, Recheck ionized calcium 6 hours after infusion. Hold calcium replacement for phosphorus greater than 5.5 mg/dL. VESICANT (RED) calcium gluconate IVPB 2000 mg/100 mL (20 mg/mL premix)(Linked Group 1) 2,000 mg, intravenous, at 100 mL/hr, Administer over 60 Minutes, As needed, for ionized calcium level 3 to 3.4 mg/dL, Starting on 06/29/24 at 0316, ED to IP Admission, Recheck ionized calcium 6 hours after infusion. Hold calcium replacement for phosphorus greater than 5.5 mg/dL. VESICANT (RED) dextrose (GLUTOSE) 40 % gel 15 g 15 g, oral, As needed, low blood sugar, blood glucose less than 70 mg/dL, Starting on 06/29/24 at 0316, ED to IP Admission, If patient conscious and taking PO. If blood glucose is not greater than 70 mg/dL after initial treatment, repeat treatment. dextrose 50 % in water (D50W) 50% solution 25 mL 25 mL, intravenous, As needed, low blood sugar, blood glucose less than 70 mg/dL and unconscious or NPO with IV access, Starting on 06/29/24 at 0316, ED to IP Admission, Push over 1-3 minutes STAT. If conscious and not NPO, immediately follow with meal tray or high protein (7 grams) snack if tray not available. If NPO, initiate 5% dextrose in water at 100 mL/hr and contact prescriber for additional orders. If blood glucose is not greater than 70 mg/dL after initial treatment, repeat treatment. VESICANT (RED) Warning: HYPERTONIC solution. flu vacc [id number] 6mos up(PF) (FLULAVAL/FLUZONE/FLUARIX TRIV) injection syringe 0.5 mL 0.5 mL, intramuscular, During hospitalization, immunization, Starting on 06/29/24 at 1218, For 1 dose, If administered intramuscularly, use the following sites based on patient age: Adults, teens and children greater than or equal to 3 years: administer in the deltoid (preferred) or anterolateral thigh. Newborns/Infants and toddlers less than or equal to 2 years: administer in the anterolateral thigh muscle (or the deltoid muscle in a 1-2 years old with sufficient muscle mass). Do NOT administer in the gluteal muscle. Look-alike/sound-alike medication - verify indication for use. Hold if fever greater than 100.4 degrees Fahrenheit (38 C) or if the patient has severe acute cardiac or pulmonary episode that requires ICU. Shake well before use. glucagon HCL injection 1 mg 1 mg, intramuscular, As needed, low blood sugar, blood glucose less than 70 mg/dL and unconscious or NPO without IV access., Starting on 06/29/24 at 0316, ED to IP Admission, If conscious and not NPO, immediately follow with meal tray or high protein (7Grams) snack if tray not available. If NPO, initiate IV 5% Dextrose/Water at 100 mL/hr and contact prescriber for additional orders. If blood glucose is not greater than 70 mg/dL after initial treatment, repeat treatment. ipratropium-albuteroL (DUONEB) 0.5 mg-3 mg(2.5 mg base)/3 mL nebulizer solution 3 mL 3 mL, nebulization, Every 6 hours PRN, wheezing, Starting on 06/29/24 at 1913, Implement INPATIENT/ED Bronchodilator Clinical Practice Guidelines? Yes magnesium hydroxide (MILK OF MAGNESIA) suspension 60 mL 60 mL, oral, Daily PRN, constipation, Starting on Mon07/03/24 at 1115, Shake well. magnesium sulfate IVPB 2000 mg/50 mL in iso-osmotic water (40 mg/mL premix)(Linked Group 2) 2,000 mg, intravenous, at 25 mL/hr, Administer over 120 Minutes, As needed, for magnesium level 1.7 to 1.9 mg/dL or ionized magnesium level 0.45 to 0.5 mmol/L, Starting on 06/29/24 at 0316, ED to IP Admission, Use premix solution. Default to ionized magnesium level in cases where patient has both magnesium and ionized magnesium results. If administered, check ionized magnesium (or total magnesium if ionized magnesium unavailable) level 4 hours after infusion. magnesium sulfate IVPB 4000 mg/100 mL in iso-osmotic water (40 mg/mL premix)(Linked Group 2) 4,000 mg, intravenous, at 25 mL/hr, Administer over 240 Minutes, As needed, for magnesium level 1.6 mg/mL or less, or ionized magnesium level 0.44 mmol/L or less, Starting on 06/29/24 at 0316, ED to IP Admission, Use premix solution. Default to ionized magnesium level in cases where patient has both magnesium and ionized magnesium results. If administered, check ionized magnesium (or total magnesium if ionized magnesium unavailable) level 4 hours after infusion. ondansetron (PF) (ZOFRAN) injection 4 mg 4 mg, intravenous, Every 6 hours PRN, nausea, Starting on 06/29/24 at 0316, ED to IP Admission, Administer over 2-5 minutes. pneumococcal conj. 20-valent (PREVNAR-20) vaccine 0.5 mL 0.5 mL, intramuscular, During hospitalization, immunization, Starting on 06/29/24 at 1220, For 1 dose, If administered intramuscularly, use the following sites based on patient age: Adults, teens and children greater than or equal to 3 years: administer in the deltoid (preferred) or anterolateral thigh. Newborns/Infants and toddlers less than or equal to 2 years: administer in the anterolateral thigh muscle (or the deltoid muscle in a 1-2 years old with sufficient muscle mass). Do NOT administer in the gluteal muscle. Look-alike/sound-alike medication - verify indication for use. Hold if fever greater than 100.4 degrees Fahrenheit (38 C) or if the patient has severe acute cardiac or pulmonary episode that requires ICU. potassium chloride (K-TAB,KLOR-CON) CR tablet 20-50 mEq(Linked Group 3) 20-50 mEq, oral, As needed, for potassium replacement, Starting on 06/29/24 at 0316, ED to IP Admission, Progress to oral potassium replacement when patient tolerating oral intake. If dose administered, recheck potassium level 4 hours after last dose. For potassium level 3.4 to 3.8 mmol/L and Serum Creatinine 1.2 or less=30 mEq. For potassium level 3.1 to 3.3 mmol/L and Serum Creatinine 1.2 or less=40 mEq. For potassium level 3 mmol/L or less and Serum Creatinine 1.2 or less=50 mEq. For potassium level 3.4 to 3.8 mmol/L and Serum Creatinine greater than 1.2=20 mEq. For potassium level 3.1 to 3.3 mmol/L and Serum Creatinine greater than 1.2=30 mEq. For potassium level 3 mmol/L or less and Serum Creatinine greater than 1.2=40 mEq. Do not crush or chew. potassium chloride (KAYCIEL) 20 mEq/15 mL solution 20-50 mEq(Linked Group 3) 20-50 mEq, oral, As needed, potassium replacement, Starting on 06/29/24 at 0316, ED to IP Admission, Progress to oral potassium replacement when patient tolerating oral intake. If dose administered, recheck potassium level 4 hours after last dose. For potassium level 3.4 to 3.8 mmol/L and Serum Creatinine 1.2 or less=30 mEq (22.5mL). For potassium level 3.1 to 3.3 mmol/L and Serum Creatinine 1.2 or less=40 mEq (30mL). For potassium level 3 mmol/L or less and Serum Creatinine 1.2 or less=50 mEq (37.5mL). For potassium level 3.4 to 3.8 mmol/L and Serum Creatinine greater than 1.2=20 mEq (15mL). For potassium level 3.1 to 3.3 mmol/L and Serum Creatinine greater than 1.2=30 mEq (22.5mL). For potassium level 3 mmol/L or less and Serum Creatinine greater than 1.2=40 mEq (30mL). Must dilute before use - Mix in 3-8 ounces of water or juice before administration When administering in feeding tube, flush before and after per policy and monitor potassium levels potassium chloride IVPB 10 mEq/100 mL in water (0.1 mEq/mL premix)(Linked Group 4) 10 mEq, intravenous, at 100 mL/hr, Administer over 60 Minutes, As needed, for potassium replacement, Starting on 06/29/24 at 0316, ED to IP Admission, Administer Potassium Chloride IVPB in 10 mEq increments. Maximum infusion rates: Central Line = 20 mEq/hour; Peripheral Line = 10 mEq/hour (10 mEq/100 mL). If dose administered, recheck potassium level 1 hour after infusion complete. For potassium level 3.4 to 3.8 mmol/L and Serum Creatinine 1.2 or less = 30 mEq For potassium level 3.1 to 3.3 mmol/L and Serum Creatinine 1.2 or less = 40 mEq For potassium level 3 mmol/L or less and Serum Creatinine 1.2 or less = 50 mEq For potassium level 3.4 to 3.8 mmol/L and Serum Creatinine greater than 1.2 = 20 mEq For potassium level 3.1 to 3.3 mmol/L and Serum Creatinine greater than 1.2 = 30 mEq For potassium level 3 mmol/L or less and Serum Creatinine greater than 1.2 = 40 mEq VESICANT (YELLOW) Infuse each 10 mEq over a minimum of 1 hour. potassium chloride IVPB 10 mEq/50 mL in water (0.2 mEq/mL premix)(Linked Group 4) 10 mEq, intravenous, at 50 mL/hr, Administer over 1 Hours, As needed, for potassium replacement, Starting on 06/29/24 at 0316, ED to IP Admission, Administer Potassium Chloride IVPB in 10 mEq increments. Maximum infusion rates: Central Line = 20 mEq/hour. Administer via Central Line Only. If dose administered, recheck potassium level 1 hour after infusion complete. For potassium level 3.4 to 3.8 mmol/L and Serum Creatinine 1.2 or less = 30 mEq For potassium level 3.1 to 3.3 mmol/L and Serum Creatinine 1.2 or less = 40 mEq For potassium level 3 mmol/L or less and Serum Creatinine 1.2 or less = 50 mEq For potassium level 3.4 to 3.8 mmol/L and Serum Creatinine greater than 1.2 = 20 mEq For potassium level 3.1 to 3.3 mmol/L and Serum Creatinine greater than 1.2 = 30 mEq For potassium level 3 mmol/L or less and Serum Creatinine greater than 1.2 = 40 mEq VESICANT (YELLOW) sod phos di, mono-K phos mono (K-PHOS NEUTRAL) 250 mg tablet 2 tablet(Linked Group 5) 2 tablet, oral, As needed, for phosphorous level 2.3 mg/dL or less, Starting on 06/29/24 at 0316, ED to IP Admission, If dose administered, recheck phosphorus level 4 hours after last dose. Look-alike/sound-alike medication - verify indication for use. Give with a full glass of water. sodium chloride 0.9 % flush 3 mL 3 mL, intravenous, As needed, line care, before and after each intermittent use, Starting on 06/29/24 at 0316, ED to IP Admission sodium chloride 0.9 % infusion 20 mL/hr, intravenous, Continuous PRN, per policy for blood product transfusion, Starting on 06/29/24 at 0543, Initiate prior to blood product transfusion. Continue before and after each blood product transfusion. Discontinue upon completion of blood product transfusion(s). sodium phosphate 20 mmol in sodium chloride 0.9 % 100 mL IVPB(Linked Group 5) 20 mmol, intravenous, at 26.7 mL/hr, Administer over 4 Hours, As needed, for phosphorous level 2.3 mg/dL or less, Starting on 06/29/24 at 0316, ED to IP Admission, Administer over 4 hours via dedicated line(central line). If administered, recheck phosphorus level 4 hours after infusion complete. Infuse using central line access. sodium phosphate 20 mmol in sodium chloride 0.9 % 250 mL IVPB(Linked Group 5) 20 mmol, intravenous, at 42.8 mL/hr, Administer over 6 Hours, As needed, for phosphorous level 2.3 mg/dL or less, Starting on 06/29/24 at 0316, ED to IP Admission, Administer over 6 hours via dedicated line (peripheral line). If administered, recheck phosphorus level 4 hours after infusion complete. Linked Groups Order Group 1: calcium gluconate IVPB 1000 mg/50 mL (20 mg/mL premix)Jump to med 1,000 mg, intravenous, at 50 mL/hr, Administer over 60 Minutes, As needed, for ionized calcium level 3.5 to 4.4 mg/dL, Starting on 06/29/24 at 0316, ED to IP Admission, Recheck ionized calcium 6 hours after infusion. Hold calcium replacement for phosphorus greater than 5.5 mg/dL. VESICANT (RED) Or calcium gluconate IVPB 2000 mg/100 mL (20 mg/mL premix)Jump to med 2,000 mg, intravenous, at 100 mL/hr, Administer over 60 Minutes, As needed, for ionized calcium level 3 to 3.4 mg/dL, Starting on 06/29/24 at 0316, ED to IP Admission, Recheck ionized calcium 6 hours after infusion. Hold calcium replacement for phosphorus greater than 5.5 mg/dL. VESICANT (RED) Or calcium gluconate 3,000 mg in sodium chloride 0.9 % 100 mL IVPBJump to med 3,000 mg, intravenous, at 130 mL/hr, Administer over 60 Minutes, As needed, for ionized calcium level less than 3 mg/dL, Starting on 06/29/24 at 0316, ED to IP Admission, CALL PHYSICIAN if this dose is administered. Recheck ionized calcium 6 hours after infusion. Hold calcium replacement for phosphorus greater than 5.5 mg/dL. VESICANT (RED) Group 2: magnesium sulfate IVPB 2000 mg/50 mL in iso-osmotic water (40 mg/mL premix)Jump to med 2,000 mg, intravenous, at 25 mL/hr, Administer over 120 Minutes, As needed, for magnesium level 1.7 to 1.9 mg/dL or ionized magnesium level 0.45 to 0.5 mmol/L, Starting on 06/29/24 at 0316, ED to IP Admission, Use premix solution. Default to ionized magnesium level in cases where patient has both magnesium and ionized magnesium results. If administered, check ionized magnesium (or total magnesium if ionized magnesium unavailable) level 4 hours after infusion. Or magnesium sulfate IVPB 4000 mg/100 mL in iso-osmotic water (40 mg/mL premix)Jump to med 4,000 mg, intravenous, at 25 mL/hr, Administer over 240 Minutes, As needed, for magnesium level 1.6 mg/mL or less, or ionized magnesium level 0.44 mmol/L or less, Starting on 06/29/24 at 0316, ED to IP Admission, Use premix solution. Default to ionized magnesium level in cases where patient has both magnesium and ionized magnesium results. If administered, check ionized magnesium (or total magnesium if ionized magnesium unavailable) level 4 hours after infusion. Group 3: potassium chloride (K-TAB,KLOR-CON) CR tablet 20-50 mEqJump to med 20-50 mEq, oral, As needed, for potassium replacement, Starting on 06/29/24 at 0316, ED to IP Admission, Progress to oral potassium replacement when patient tolerating oral intake. If dose administered, recheck potassium level 4 hours after last dose. For potassium level 3.4 to 3.8 mmol/L and Serum Creatinine 1.2 or less=30 mEq. For potassium level 3.1 to 3.3 mmol/L and Serum Creatinine 1.2 or less=40 mEq. For potassium level 3 mmol/L or less and Serum Creatinine 1.2 or less=50 mEq. For potassium level 3.4 to 3.8 mmol/L and Serum Creatinine greater than 1.2=20 mEq. For potassium level 3.1 to 3.3 mmol/L and Serum Creatinine greater than 1.2=30 mEq. For potassium level 3 mmol/L or less and Serum Creatinine greater than 1.2=40 mEq. Do not crush or chew. Or potassium chloride (KAYCIEL) 20 mEq/15 mL solution 20-50 mEqJump to med 20-50 mEq, oral, As needed, potassium replacement, Starting on 06/29/24 at 0316, ED to IP Admission, Progress to oral potassium replacement when patient tolerating oral intake. If dose administered, recheck potassium level 4 hours after last dose. For potassium level 3.4 to 3.8 mmol/L and Serum Creatinine 1.2 or less=30 mEq (22.5mL). For potassium level 3.1 to 3.3 mmol/L and Serum Creatinine 1.2 or less=40 mEq (30mL). For potassium level 3 mmol/L or less and Serum Creatinine 1.2 or less=50 mEq (37.5mL). For potassium level 3.4 to 3.8 mmol/L and Serum Creatinine greater than 1.2=20 mEq (15mL). For potassium level 3.1 to 3.3 mmol/L and Serum Creatinine greater than 1.2=30 mEq (22.5mL). For potassium level 3 mmol/L or less and Serum Creatinine greater than 1.2=40 mEq (30mL). Must dilute before use - Mix in 3-8 ounces of water or juice before administration When administering in feeding tube, flush before and after per policy and monitor potassium levels Group 4: potassium chloride IVPB 10 mEq/50 mL in water (0.2 mEq/mL premix)Jump to med 10 mEq, intravenous, at 50 mL/hr, Administer over 1 Hours, As needed, for potassium replacement, Starting on 06/29/24 at 0316, ED to IP Admission, Administer Potassium Chloride IVPB in 10 mEq increments. Maximum infusion rates: Central Line = 20 mEq/hour. Administer via Central Line Only. If dose administered, recheck potassium level 1 hour after infusion complete. For potassium level 3.4 to 3.8 mmol/L and Serum Creatinine 1.2 or less = 30 mEq For potassium level 3.1 to 3.3 mmol/L and Serum Creatinine 1.2 or less = 40 mEq For potassium level 3 mmol/L or less and Serum Creatinine 1.2 or less = 50 mEq For potassium level 3.4 to 3.8 mmol/L and Serum Creatinine greater than 1.2 = 20 mEq For potassium level 3.1 to 3.3 mmol/L and Serum Creatinine greater than 1.2 = 30 mEq For potassium level 3 mmol/L or less and Serum Creatinine greater than 1.2 = 40 mEq VESICANT (YELLOW) Or potassium chloride IVPB 10 mEq/100 mL in water (0.1 mEq/mL premix)Jump to med 10 mEq, intravenous, at 100 mL/hr, Administer over 60 Minutes, As needed, for potassium replacement, Starting on 06/29/24 at 0316, ED to IP Admission, Administer Potassium Chloride IVPB in 10 mEq increments. Maximum infusion rates: Central Line = 20 mEq/hour; Peripheral Line = 10 mEq/hour (10 mEq/100 mL). If dose administered, recheck potassium level 1 hour after infusion complete. For potassium level 3.4 to 3.8 mmol/L and Serum Creatinine 1.2 or less = 30 mEq For potassium level 3.1 to 3.3 mmol/L and Serum Creatinine 1.2 or less = 40 mEq For potassium level 3 mmol/L or less and Serum Creatinine 1.2 or less = 50 mEq For potassium level 3.4 to 3.8 mmol/L and Serum Creatinine greater than 1.2 = 20 mEq For potassium level 3.1 to 3.3 mmol/L and Serum Creatinine greater than 1.2 = 30 mEq For potassium level 3 mmol/L or less and Serum Creatinine greater than 1.2 = 40 mEq VESICANT (YELLOW) Infuse each 10 mEq over a minimum of 1 hour. Group 5: sodium phosphate 20 mmol in sodium chloride 0.9 % 250 mL IVPBJump to med 20 mmol, intravenous, at 42.8 mL/hr, Administer over 6 Hours, As needed, for phosphorous level 2.3 mg/dL or less, Starting on 06/29/24 at 0316, ED to IP Admission, Administer over 6 hours via dedicated line (peripheral line). If administered, recheck phosphorus level 4 hours after infusion complete. Or sodium phosphate 20 mmol in sodium chloride 0.9 % 100 mL IVPBJump to med 20 mmol, intravenous, at 26.7 mL/hr, Administer over 4 Hours, As needed, for phosphorous level 2.3 mg/dL or less, Starting on 06/29/24 at 0316, ED to IP Admission, Administer over 4 hours via dedicated line(central line). If administered, recheck phosphorus level 4 hours after infusion complete. Infuse using central line access. Or sod phos di, mono-K phos mono (K-PHOS NEUTRAL) 250 mg tablet 2 tabletJump to med 2 tablet, oral, As needed, for phosphorous level 2.3 mg/dL or less, Starting on 06/29/24 at 0316, ED to IP Admission, If dose administered, recheck phosphorus level 4 hours after last dose. Look-alike/sound-alike medication - verify indication for use. Give with a full glass of water. FOR RECORDS PERTAINING TO PATIENTS WHO ARE [...] BE BASED ON THE PRIMARY CLINICAL RECORDS. [employer] provides no warranty or guarantee of the accuracy or completeness of information in this document.
[2024-12-07 09:05] LABS: Hematocrit 39.0 % (42.0-54.0); Hemoglobin 12.7 g/dL (14.0-18.0); Immature Granulocytes Abs Auto 0.02 10^3/uL (0.00-0.03); Immature Granulocytes Pct Auto 0.4 % (0.0-0.5); Lymphocytes Absolute Auto 0.9 10^3/uL (1.2-3.8); Mean Corpuscular HGB Conc 32.6 g/dL (29.9-35.2); Mean Corpuscular Hemoglobin 31.4 pg (25.9-34.0); Mean Corpuscular Volume 96.5 fL (80.0-94.0); Platelet Count 125 10^3/uL (150-450); Red Blood Count 4.04 10^6/uL (4.70-6.10); White Blood Count 5.5 10^3/uL (4.0-11.0)
[2024-12-07 09:23] LABS: Anion Gap 13.9; Blood Urea Nitrogen 49.0 mg/dL (7.0-18.0); Calcium 9.7 mg/dL (8.5-10.1); Carbon Dioxide 26.4 mmol/L (21.0-32.0); Chloride 104 mmol/L (98-107); Estimated GFR (African America 24 (>=60 mL/min/1.73m^2); Estimated GFR (Non-African Ame 20 (>=60 mL/min/1.73m^2); Glucose 104 mg/dL (74-106); NT Pro B Type Natriuretic Pept 606.0 pg/mL (<=1800.0); Potassium 4.3 mmol/L (3.5-5.1); Sodium 140 mmol/L (136-145)
== END 2024-12-07 08:31 | disposition home or self-care (01) ==
PROVIDERS: PCP Family Medicine
DX: I50.21 Acute systolic (congestive) heart failure (principal)
CPT/HCPCS: 36415; 80048; 83880; 85025

== ENCOUNTER 2024-12-17 16:08 | Outpatient (OUT) | payer MEDICARE, SELFPAY ==
--- OUTSIDE RECORDS SUMMARY | 2024-08-20 12:15 | XMS_ITS ---
Author Organization [facility] in [place] Address [address] [place] [address] Care Team Providers Care Straightening Machine Operator Name Role Phone Mere Gerber Primary Care Provider Allergies No Known Allergies REASON FOR VISIT Presents to office with son for 6 month f/u, Sees Cardio August 28- [facility] Cardio Medications Medication SIG (Take, [...] day Active Vitamin D (Ergocalciferol) 1.25 MG (91985 UT) 1 capsule Orally daily Active Walker [...] 08/20/2024 Encounters Encounter Location Date Provider Diagnosis [facility] [address] [place] [address] 08/20/2024 Mere Gerber HTN (hypertension) I10 Assessments Encounter Date Diagnosis (ICD Code) Assessment Notes Treatment Notes Treatment Clinical Notes Section Notes 08/20/2024 HTN (hypertension) (ICD-10 - I10) controlled, fu cardiology Plan Of Treatment Treatment Notes Assessment Notes HTN (hypertension) controlled, fu cardiology Next Appt Details Follow Up: prn, Reason: Progress Notes * NIR NeptaliDOB:1945 (79 yo M)Acc No.[id number]:08/20/2024 Progress Note Patient: Neptali TORREZ Provider: Angelica Gerber ([facility]), BORING MACHINE OPERATOR PRODUCTION :1945 A ge:79 Y S ex:Male Date:08/20/2024 Address:[address] [place], [place] [phone] Check In:04:02 PM ESTCheck O ut:04:30 PM EST Subjective: * Chief Complaints: * 1 . Presents to office with son for 6 month f/u. 2. Sees Cardio August 28- [facility] Cardio. * HPI: G eneral: home now sees cardiology next week echo recently, needs clearance before next kidney procedure [facility] request record taking meds ok sleeps ok walker, shower chair, wheelchair- borrowed [facility]. * ROS: G eneral/Constitutional: Fever d enies. [...] , Taking Vitamin D (Ergocalciferol) 1.25 MG (88567 UT) Capsule 1 capsule Orally daily , [...] * Treatment: * Preventive Medicine: Screenings/Counseling: B [place] ACTION PLAN Above Normal BMI Follow-up D ietary management education, guidance, and counseling See treatment section of progress note for complete details of management plan. F ALL RISK SCREENING Fall Risk Assessment: N o falls in the past year * Follow Up: p rn * * Electronically signed by Adeola Gerber , ELROY, SENIOR CLINICAL STUDY MANAGER.BORING MACHINE OPERATOR PRODUCTION.[id number] on 08/22/2024 at 09:02 AM EDT Sign off status: Completed Visit Status: C HK (Check Out) true * Provider: Angelica Gerber ([facility]), BORING MACHINE OPERATOR PRODUCTION Date: 0 08/20/2024 Generated for Diego culp/Serina/Anayeliitting on: 0 12/17/2024 04:13 PM EDT History and Physical Notes * HPI (History of Present Illness) Category Sub-Category Detail Notes Category Not es General home now sees cardiology next week echo recently, needs clearance before next kidney procedure [facility] request record taking meds ok sleeps ok walker, shower chair, wheelchair- borrowed [facility] Examination Category Sub-Category Detail Notes Category Not [...]
--- OUTSIDE RECORDS SUMMARY | 2024-11-25 14:09 | XMS_ITS ---
Author Organization The [facility] in [place] Address [address] [place] [address] Care Team Providers Care Surveillance Investigator Name Role Phone Mere Gerber Primary Care Provider REASON FOR VISIT lab results Medications Medication SIG (Take, Route, Fr equency, Duration) Notes Start Date End Date Status Bumetanide 1 MG 1 tablet Orally twic e daily for 30 days 11/27/2024 Active Spironolactone 25 MG 1 tablet Orally once daily Active Encounters Encounter Location Date Provider Diagnosis [facility] [address] [place] [address] 11/25/2024 Mere Gerber Edema R60.9 Assessments Encounter Date Diagnosis (ICD Code) Assessment Notes Treatment Notes Treatment Clinical Notes Section Notes 11/25/2024 Edema (ICD-10 - R60.9) Plan Of Treatment Medication Medication Name Sig Start Date Stop Date Notes Bumetanide 1 MG 1 tablet Orally twic e daily for 30 days 11/27/2024 Lasix 40 MG 1 tablet Orally every morning 02/23/2024 Spironolactone 25 MG 1 tablet Orally once daily 04/03/2024 Progress Notes * Neptali LOYOLADOB:1945 (79 yo M)Acc No.[id number]:11/25/2024 Patient: Neptali TORREZ :1945 A ge:79 Y S ex:Male Address:[address] [place] [address], [address] * Refills Refill Spironolactone Tablet, 25 MG, Orally, 1 tablet, once daily Stop Lasix Tablet, 40 MG, Orally, 1 tablet, every morning Start Bumetanide Tablet, 1 MG, Orally, 1 tablet, twice daily, 30 days * true * Date: Generated for Diego culp/Serina/Rachael on: 0 12/17/2024 04:13 PM EDT
--- OUTSIDE RECORDS SUMMARY | 2024-12-09 15:30 | XMS_ITS | Encounter Summary ---
Author Organization [facility] Address [address] [place] [address] Care Team Providers Care Ball Thread Machine Tender Name Role Phone Mere Gerber CNP Primary Care Provider [phone] Encounter Details Date Type Department Care Team (Late st Contact Info) Description 12/09/2024 3:30 PM EDT Office Visit [facility] Heart at [facility] [address] [place] [address] Phong Kelley MD [address] [facility] [place] [address] Coronary artery disease involving pauma coronary artery of pauma heart without angina pectoris (Primary Dx); Status post insertion of drug eluting coronary artery stent; Chronic systolic congestive heart failure (CMS/HCC); Paroxysmal atrial fibrillation (CMS/HCC); ICD (implantable cardioverter-defibril lator), dual, in situ; Chronic kidney disease, stage IV (severe) (CMS/HCC) Social History Tobacco Use Types Packs/Day Years Used Date Smoking Tobacco: Former Cigarettes Smokeless Tobacco: Never Alcohol Use Standard Drinks/Week Comments Not Currently 0 (1 standard drink = 0.6 oz pur e alcohol) [facility] Utilities Answer Date Recorded In the past 12 months has e [employer] [place] [employer] [place], gas, oil, or water [email or web address] threatened to shut off services in your [...] Sign Reading Time Taken Comments Blood Pressure 86/57 12/09/2024 4:07 PM EDT Pulse 71 12/09/2024 4:07 PM EDT Temperature - - Respiratory Rate - - Oxygen Saturation 95% 12/09/2024 4:07 PM EDT Inhaled Oxygen Concentration - - Weight 93 kg (205 lb) 12/09/2024 4:07 PM EDT Height 182.9 cm (6') 12/09/2024 4:07 PM EDT Body Mass Index 27.8 12/09/2024 4:07 PM EDT documented in this encounter Progress Notes * Phong Kelley MD - 12/09/2024 3:30 PM EDT Images from the original note were not included. [facility] Subjective Neptali Reeves is a 79 y.o. year old male patient being seen to discuss LAAO. He was scheduled forecho 12/04 at [facility] but it wasn't completed. Had labs 12/07. He is scheduled for [facility] on 12/19. Patient's down 8# from 11/29/2024. Son says he gave his father a shower yesterday and he seemed very SOB. Afterlast visit, Eren Johansen put 3 medications on hold : bumex, spironolactone, and potassium. Patient Active Problem List Diagnosis Cardiac arrest [...] Kidney stones Fall in home Loose stools Acute HFrEF (heart failure with reduced ejection fraction) (CMS/HCC) Family History Problem Relation Name Age of Onset Coronary artery disease Mother Cancer Father Cancer Sister Cancer Brother Social History Tobacco Use Smoking status: Former Types: Cigarettes Smokeless tobacco: Never Vaping Use Vaping status: Never Used Substance Use Topics Alcohol use: Not Currently Drug use: Never HPI Neptali is seen in follow-up. He is a 79-year-old man with prior medical history of coronary artery disease status post PCI to the circumflex in 2007 with cardiac catheterization March 2024 showing patent stent and mild coronary artery disease. He has a history of cardiac arrest due to ventricular fibrillation status post ICD placement, chronic systolic heart failure and ischemic cardiomyopathy. He has hypertension, hyperlipidemia and stage IV chronic kidney disease. He has paroxysmal atrial fibrillation. Recently due to his significant weight loss diuretic therapy was held. There was worsening of renalfunction. In addition he had discontinued Eliquis around 06/2024 due to hematuria and anemia. This happened atthe time of urologic procedure. He also has balance impairment and sustained a fall previously. today he reports that he has been doing well. He has mild shortness of breath and lower extremity edema but his weight continues to drop and today is 205 pounds. No chest pain. No palpitations. He uses walker to assist with ambulation. Review of Systems Constitutional: Positive for malaise/fatigue and weight loss (8# since 11/29/2024). Cardiovascular: Positive for dyspnea on exertion and leg swelling. All other systems reviewed and are negative. Objective Visit Vitals BP 86/57 (BP Location: Left arm, Patient Position: Sitting) Pulse 71 Ht 1.829 m (6') Wt 93 kg (205 lb) SpO2 95% BMI 27.80 kg/m?? Smoking Status Former BSA 2.17 m?? Physical Exam Constitutional: Appearance: He is well-developed. He is not ill-appearing. HENT: Head: Normocephalic and atraumatic. Nose: Nose normal. Eyes: General: No scleral icterus. Pupils: Pupils are equal, round, and reactive to light. Neck: Thyroid: No thyromegaly. Vascular: No JVD. Cardiovascular: Rate and Rhythm: Normal rate and regular rhythm. Pulses: Radial pulses are 2+ on the right side and 2+ on the left side. Heart sounds: Normal heart sounds. No murmur heard. No friction rub. No gallop. Pulmonary: Effort: Pulmonary effort is normal. No respiratory distress. Breath sounds: Normal breath sounds. No wheezing or rales. Chest: Chest wall: No tenderness. Abdominal: General: Bowel sounds are normal. There is no distension. Palpations: Abdomen is soft. Tenderness: There is no abdominal tenderness. Musculoskeletal: General: No swelling. Cervical back: Neck supple. Comments: Uses a walker to assist with ambulation Skin: General: Skin is warm and dry. Neurological: General: No focal deficit present. Mental Status: He is alert and oriented to person, place, and time. Psychiatric: Mood and Affect: Mood normal. Behavior: Behavior is cooperative. Judgment: Judgment normal. Allergies No Known Allergies Medications Current Outpatient Medications: acetaminophen (Tylenol) 500 mg [...] mouth in the morning., Disp: , Rfl: dapagliflozin propanediol (Farxiga) 10 mg, Take 1 [...] times daily., Disp: 60 tablet, Rfl: 12 apixaban (Eliquis) 2.5 mg tablet, Take 1 tablet (2.5 mg) by mouth two times daily., Disp: , Rfl: bumetanide (Bumex) 1 mg tablet, Take 1 tablet (1 mg) by mouth two times daily. (Patient not taking:Reported on 12/09/2024), Disp: 60 tablet, Rfl: 11 potassium chloride (Klor-Con) 20 mEq packet, Take 40 mEq by mouth in the morning AND 20 mEq daily with evening meal. (Patient not taking: No sig reported), Disp: 270 packet, Rfl: 3 potassium chloride (Klor-Con) 20 mEq packet, Take 20 mEq by mouth two times daily. (Patient not taking: Reported on 12/09/2024), Disp: 180 packet, Rfl: 3 potassium chloride CR (K-Tab) 20 mEq ER tablet, Take 1 tablet (20 mEq) by mouth two times daily. Donot crush, chew, or split. This is a decrease (Patient not taking: Reported on 12/09/2024), Disp: 180 tablet, Rfl: 3 spironolactone (Aldactone) 25 mg tablet, Take 1 tablet (25 mg) by mouth once daily as directed. (Patient not taking: Reported on 12/09/2024), Disp: 45 tablet, Rfl: 3 Recent Labs Ancillary Procedure on 10/29/2024 Component Date Value BSA 11/25/2024 2.27 Documentation on 09/25/2024 Component Date Value External Fasting Glucose 08/28/2024 93 External Creatinine, Ser* 08/28/2024 1.18 External BUN 08/28/2024 15.0 External Potassium 08/28/2024 3.7 External Sodium, serum 08/28/2024 145 External CO2, total 08/28/2024 30.0 External Chloride 08/28/2024 110 External Calcium 08/28/2024 9.0 External Albumin 08/28/2024 2.8 External Protein, total 08/28/2024 6.7 External Alkaline Phosph* 08/28/2024 118 External ALT 08/28/2024 29 External AST 08/28/2024 32 External Bilirubin,total 08/28/2024 0.5 External WBC 08/28/2024 6.5 External RBC 08/28/2024 4.11 External Hematocrit 08/28/2024 40 External Hemoglobin 08/28/2024 12.7 External Platelets 08/28/2024 174 EXT MCV 08/28/2024 97.8 EXT MCH 08/28/2024 30.9 EXT MCHC 08/28/2024 31.6 EXT RDW 08/28/2024 16.5 Admission on 09/04/2024, Discharged on 09/04/2024 Component Date Value Glucose POC 09/04/2024 80 Case Report 09/04/2024 Value:Surgical Pathology Case: [id number] Authorizing Provider: Tino Langston MD Collected: 09/04/2024 1108 Ordering Location: [facility] Main Operating Room Received: 09/04/2024 1305 Pathologist: Jaxon Acosta MD Specimen: Kidney, KIDNEY STONE FOR ANALYSIS Addendum 09/04/2024 Value:09-17-24: This case was sent to the Urolithiasis Laboratory in [place], [place] for chemical analysis (please see accompanying report). Please see results below: Urolithiasis Results: No nidus observed in the specimen The stone is composed of: Calcium oxalate monohydrate: 90% Calcium phosphate (Apatite): 10% Final Diagnosis 09/04/2024 Value:A. Kidney, stone for analysis: - Gross examination consistent with renal calculus. - Specimen forwarded to reference laboratory for chemical analysis. Clinical Information 09/04/2024 Value:Pre-op diagnosis: Kidney stone [N20.0] Gross Description 09/04/2024 Value:A. Kidney. The specimen is received fresh labeled Edward Shiets and kidney stone for analysis. It consists of a 0.3 x 0.2 x 0.1 cm yellow-brown, firm, roughened stone. The specimen is for gross examination only and is to be sent to the Urolithiasis lab in [place], [place] for chemical analysis. Rhiannon Mercado, Pathologists' Material Stress Tester student Tabitha Aggarwal, Pathologists' Material Stress Tester Student Microscopic Description 09/04/2024 Value:Gross examination only. Lab on 08/30/2024 Component Date Value TSH 08/30/2024 2.01 Free T4 08/30/2024 1.24 aPTT 08/30/2024 30.3 Protime 08/30/2024 14.7 INR 08/30/2024 1.15 (H) Auto WBC 08/30/2024 6.26 RBC 08/30/2024 4.36 Hemoglobin 08/30/2024 13.3 Hematocrit 08/30/2024 42.6 MCV 08/30/2024 97.7 MCH 08/30/2024 30.5 MCHC 08/30/2024 31.2 (L) RDW 08/30/2024 17.0 (H) Neutrophils % 08/30/2024 65.8 Lymphocytes % 08/30/2024 20.6 Monocytes % 08/30/2024 8.5 Eosinophils % 08/30/2024 3.8 Basophils % 08/30/2024 1.0 Neutrophils Absolute 08/30/2024 4.12 Lymphocytes Absolute 08/30/2024 1.29 Monocytes Absolute 08/30/2024 0.53 Eosinophils Absolute 08/30/2024 0.24 Basophils Absolute 08/30/2024 0.06 Platelets 08/30/2024 189 nRBC % 08/30/2024 0.0 Immature Granulocytes % 08/30/2024 0.3 Immature Granulocytes Ab* 08/30/2024 0.02 Admission on 06/26/2024, Discharged on 06/26/2024 Component Date Value Sodium 06/26/2024 138 Potassium 06/26/2024 3.6 Chloride 06/26/2024 108 (H) CO2 06/26/2024 24 Anion Gap 06/26/2024 10 BUN 06/26/2024 13 Creatinine 06/26/2024 1.28 BUN/Creatinine Ratio 06/26/2024 10.2 Glucose 06/26/2024 117 (H) Calcium 06/26/2024 8.1 (L) AST 06/26/2024 23 ALT (SGPT) 06/26/2024 16 Alkaline Phosphatase 06/26/2024 71 Total Protein 06/26/2024 5.6 (L) Albumin 06/26/2024 3.1 (L) Total Bilirubin 06/26/2024 0.9 eGFR 06/26/2024 57.3 (L) Protime 06/26/2024 22.9 (H) INR 06/26/2024 2.07 (H) aPTT 06/26/2024 35.6 (H) Color, Urine 06/26/2024 Dark-Yellow (A) Clarity, Urine 06/26/2024 Cloudy (A) pH, Urine 06/26/2024 6.5 Leukocytes, Urine 06/26/2024 Large (A) Nitrite, Urine 06/26/2024 Negative Protein, Urine 06/26/2024 30 (A) Glucose, Urine 06/26/2024 >=1000 (A) Bilirubin, Urine 06/26/2024 Negative Specific [place], Urine 06/26/2024 1.023 Ketones, Urine 06/26/2024 Negative Blood, Urine 06/26/2024 Large (A) Urobilinogen, Urine 06/26/2024 4.0 (A) ABO Grouping 06/26/2024 A Rh Type 06/26/2024 POS Ab Scrn 06/26/2024 NEG Ventricular Rate 06/26/2024 65 Atrial Rate 06/26/2024 65 OK Interval 06/26/2024 224 QRS DURATION 06/26/2024 168 QT Interval 06/26/2024 504 QTC CALCULATION(BAZETT) 06/26/2024 524 P Mesick 06/26/2024 70 R-Mesick 06/26/2024 -60 T Wave Mesick 06/26/2024 60 Troponin I 06/26/2024 0.01 Auto WBC 06/26/2024 10.18 RBC 06/26/2024 3.53 (L) Hemoglobin 06/26/2024 10.9 (L) Hematocrit 06/26/2024 34.3 (L) MCV 06/26/2024 97.2 MCH 06/26/2024 30.9 MCHC 06/26/2024 31.8 (L) RDW 06/26/2024 14.2 Neutrophils % 06/26/2024 84.8 (H) Lymphocytes % 06/26/2024 5.7 (L) Monocytes % 06/26/2024 7.8 Eosinophils % 06/26/2024 0.6 Basophils % 06/26/2024 0.3 Neutrophils Absolute 06/26/2024 8.64 (H) Lymphocytes Absolute 06/26/2024 0.58 (L) Monocytes Absolute 06/26/2024 0.79 Eosinophils Absolute 06/26/2024 0.06 Basophils Absolute 06/26/2024 0.03 Platelets 06/26/2024 191 nRBC % 06/26/2024 0.0 Immature Granulocytes % 06/26/2024 0.8 Immature Granulocytes Ab* 06/26/2024 0.08 BNP 06/26/2024 441 (H) Magnesium 06/26/2024 1.7 (L) RBC, Urine 06/26/2024 >20 (A) WBC, Urine 06/26/2024 >50 (A) Squamous Epithelial, Uri* 06/26/2024 None Seen Mucus, Urine 06/26/2024 Occasional Urine Culture 06/26/2024 No growth at 48 hours Admission on 06/19/2024, Discharged on 06/19/2024 Component Date Value Glucose POC 06/19/2024 84 Culture 06/19/2024 No growth at 3 days Case Report 06/19/2024 Value:Surgical Pathology Case: [id number] Authorizing Provider: Tino Langston MD Collected: 06/19/2024 1004 Ordering Location: [facility] Main Operating Room Received: 06/19/2024 1259 Pathologist: Katy Pierre MD Specimen: Kidney, KIDNEY STONE FOR ANALYSIS Addendum 06/19/2024 Value:07-04-2024: This case was sent to the Urolithiasis Laboratory in [place], [place] for chemical analysis (please see accompanying report). ? Please see results below: Urolithiasis Results: No nidus observed in the specimen The stone is composed of:?? Calcium oxalate monohydrate:? 100% Final Diagnosis 06/19/2024 Value:A. Kidney, stone , removal: - Stone fragments for chemical analysis. Clinical Information 06/19/2024 Value:Pre-op diagnosis: Kidney stones [N20.0] Gross Description 06/19/2024 Value:A. Kidney. Part A is received fresh labeled Edward Shiets and kidney stone for analysis . It consists of 2 irregular, wiggins-brown, firm calculi measuring 0.2 x 0.2 x 0.1 cm and 0.2 x 0.1 x 0.1 cm. The specimen is submitted to the Urolithiasis Lab in [place], [place] for chemical analysis. Carolina Adams, Pathologists' Material Stress Tester student Ayden Lawson, Pathologists' Material Stress Tester student Lab on 06/18/2024 Component Date Value External Fasting Glucose 06/17/2024 93 External Creatinine, Ser* 06/17/2024 1.15 External BUN 06/17/2024 17.0 External Potassium 06/17/2024 3.4 External Sodium, serum 06/17/2024 141 External CO2, total 06/17/2024 28.5 External Chloride 06/17/2024 104 External Calcium 06/17/2024 8.9 External Albumin 06/17/2024 3.0 External Protein, total 06/17/2024 6.8 External Alkaline Phosph* 06/17/2024 110 External ALT 06/17/2024 19 External AST 06/17/2024 21 External Bilirubin,total 06/17/2024 0.6 External WBC 06/17/2024 5.1 External RBC 06/17/2024 4.31 External Hematocrit 06/17/2024 42 External Hemoglobin 06/17/2024 13.6 External Platelets 06/17/2024 122 EXT MCV 06/17/2024 96.8 EXT MCH 06/17/2024 31.6 EXT MCHC 06/17/2024 32.6 EXT RDW 06/17/2024 13.9 Blood testing 11/25/2024: Potassium 4.8, BUN 35, creatinine 3.14, EGFR 19. NT proBNP 268. Blood testing 12/07/2024: Potassium 4.3, BUN 49, creatinine 3.06, EGFR 20, NT proBNP 606, [id number]. Platelets 125. Imaging and other tests ICD interrogation 11/12/2024: Heart logic heart failure index above threshold. Echocardiogram 08/09/2024: Left Ventricle: Left ventricle appears normal in size. Systolic function is severely decreased with an ejection fraction of 25-30%. Grade I diastolic dysfunction (impaired relaxation) is present. Lateral E' is 4.06 cm/s. Medial E' is 3.96 cm/s. The study had technical difficulties. The study was difficult due to patient's poor acoustic windows. Echo (limited): 02/28/2024 Left Ventricle: The [...] PERFORMED: 1. Implantation of dual chmaber ICD (Cardiostrong) 2. Ultrasound guided venous access INDICATIONS: 1. Dilated ischemic cardiomyopathy 2. NYHA class II-III Assessment/Plan Diagnoses and all orders for this visit: Coronary artery disease involving pauma coronary artery of pauma heart without angina pectoris Status post insertion of drug eluting coronary artery stent Chronic systolic congestive heart failure (CMS/HCC) - Basic metabolic panel; Future - CBC and differential; Future Paroxysmal atrial fibrillation (CMS/HCC) - apixaban (Eliquis) 2.5 mg tablet; Take 1 tablet (2.5 mg) by mouth two times daily. ICD (implantable cardioverter-defibrillator), dual, in situ Chronic kidney disease, stage IV (severe) (CMS/HCC) - Basic metabolic panel; Future - CBC and differential; Future 1. Chronic systolic heart failure: Currently appears to be in NYHA class I-II symptoms but he has lower extremity edema. However he continues to lose weight and his weight today was 205 pounds. At this time spironolactone, potassium and Bumex are on hold. I asked them to continue to hold it and monitor her weight. If the weight starts to go back up by 2 to 3 pounds I told him to resume Bumex only. I explained to them that management of his systolic heart failure and volume status is difficult given his advanced kidney disease. He is scheduled to undergo right heart catheterization on 12/19/2024 with me. This will provide better assessment of his volume status and guide therapy. 2. Paroxysmal atrial fibrillation: Currently appears to be in sinus rhythm. He has not been on anticoagulation therapy since several months after he developed hematuria in the setting of urologic surgery. He has not had any bleeding since then. He previously used to be on 5 mg twice daily of Eliquis. Given his age almost 80 and his advanced kidney disease I am going to restart Eliquis at 2.5 mg twice daily. They have 5 mg tablets at home and they can break it in half. I explained to them that if he develops bleeding on the low-dose Eliquis then we can consider watchman left atrial appendage occlusion procedure. I discussed the procedure with him and his family members in detail along with risks and benefits. 3. CAD status post stenting of the circumflex in the past: No angina, cardiac catheterization February 2024 showed mild nonobstructive coronary artery disease. Continue atorvastatin. He is on Plavix. I am going to stop the Plavix given that he is going to be back on Eliquis for anticoagulation therapy. 4. Chronic kidney disease stage IV: He follows with nephrology. I will see him in follow-up after the right heart catheterization procedure. Follow up in about 4 weeks (around 01/06/2025). Phong Kelley MD documented in this encounter Plan of Treatment Upcoming Encounters Date Type Department Care Team (Late st Contact Info) Description 12/19/2024 9:30 AM EDT Appointment [facility] Heart counts include 234 beds at [facility] [place] [facility] [address] [place] [address] 12/19/2024 10:30 AM EDT Hospital Encounter [facility] Heart [facility] V[facility] Lab [address] [place] [address] Phong Kelley MD [address] [place] [place] [id number] Acute HFrEF (heart failure with reduced ejection fraction) ([facility]) 12/19/2024 10:30 AM EDT - 12/19/2024 11:30 AM EDT Surgery [facility] Heart counts include 234 beds at the [facility] [place] [facility] [address] [place] [address] Phong Kelley MD [address] [facility] [place] [address] Right heart cath [51698 (CPT )] 01/17/2025 11:00 AM EDT Follow-Up [facility] Urology [address] [place] [address] Tino Langston MD [address] [place] [address] [address] [place] [address] Scheduled Orders Name Type Priority Associated Diagnoses Orde r Schedule Basic metabolic panel Lab Routine Chronic systolic congestive heart failure (CMS/HCC) Chronic kidney disease, stage IV (severe) (CMS/HCC) Expected: 12/17/2024 (Approximate), Expires: 12/09/2025 CBC and differential Lab Routine Chronic systolic congestive heart failure (CMS/HCC) Chronic kidney disease, stage IV (severe) (CMS/HCC) Expected: 12/17/2024 (Approximate), Expires: 12/09/2025 documented as of this encounter Visit Diagnoses Diagnosis Acute HFrEF (heart failure with reduced ejection fraction) (CMS/HCC)- Primary Coronary artery disease involving pauma coronary artery of pauma heart without angina pectoris- Primary Status post insertion of drug eluting coronary artery stent Chronic systolic congestive heart failure (CMS/HCC) Paroxysmal atrial fibrillation (CMS/HCC) Atrial fibrillation ICD (implantable cardioverter-defibrillator), dual, in situ Chronic kidney disease, stage IV (severe) (CMS/HCC) Chronic kidney disease, Stage IV (severe) Acute HFrEF (heart failure with reduced ejection fraction) (CMS/HCC) documented in this encounter Care Teams Ball Thread Machine Tender Relationship Specialty Start Date End Date Mere Gerber CNP [facility] [facility], [place] [address] PCP - General Family Medicine 01/10/24 documented as of this encounter
--- OUTSIDE RECORDS SUMMARY | 2024-12-17 16:13 | XMS_ITS | Encounter Summary ---
Author Organization [facility] Address [address] [place] [address] Care Team Providers Care Sales Systems Engineer Name Role Phone Mere Gerber CNP Primary Care Provider [phone] Encounter Details Date Type Department Care Team (Late st Contact Info) Description 10/28/2024 Orders Only [facility] [address] [place] [address] Jg Cason MD [address] [place] [address] Social History Tobacco Use Types Packs/Day Years Used Date Smoking Tobacco: Former Cigarettes Smokeless Tobacco: Never Alcohol Use Standard Drinks/Week Comments Not Currently 0 (1 standard drink = 0.6 oz pur e alcohol) [facility] Utilities Answer Date Recorded In the past 12 months has e [employer], gas, oil, or water [employer] threatened to shut off services in your [...] place to sleep or slept in a penitentiary (including now)? No 02/26/2024 Hunger Vital Sign [...] Info) Description 12/19/2024 9:30 AM EDT Appointment [facility] Heart [facility] [place] [facility] [address] [place] [address] 12/19/2024 10:30 AM EDT Hospital Encounter [facility] [place] [facility] [address] [place] [address] Phong Kelley MD [address] [facility] [address] [facility] [place] [address] Acute HFrEF (heart failure with reduced ejection fraction) ([facility]) 12/19/2024 10:30 AM EDT - 12/19/2024 11:30 AM EDT Surgery [facility] [place] [facility] [address] [place] [address] Phong Kelley MD [address] [facility] [address] [facility] [place] [id number] Right heart cath [98574 (CPT )] 01/17/2025 11:00 AM EDT Follow-Up [facility] Urology [address] [place] [address] Tino Langston MD [address] [place] [address] documented as of this encounter Procedures Procedure Name Priority Date/Time Associated Diagnosis Comments CARDIAC DEVICE CHECK - REMOTE - ICD Routine 10/28/2024 12:00 AM EDT documented in this encounter Results * Cardiac device check - Remote ICD (10/28/2024 12:00 AM EDT) Anatomical Region Laterality Modality Other 10/28/2024 us Jg Cason MD CV IMPLANTABLE CARDIAC DEVICE PROCEDURES Final Result documented in this encounter Visit Diagnoses Not on filedocumented in this encounter Care Teams Sales Systems Engineer Relationship Specialty Start Date End Date Mere Gerber CNP [address] [place] [address], [place] [address] PCP - General Family Medicine 01/10/24 documented as of this encounter
--- OUTSIDE RECORDS SUMMARY | 2024-12-17 16:13 | XMS_ITS | Clinical Summary ---
Author Organization [facility] Address [address] [place] [address] Care Team Providers Care Examination Proctor Name Role Phone Mere Gerber CNP Primary Care Provider Allergies No known active allergies Medications amiodarone (Pacerone) 200 mg tabletIndication s:Cardiac arrest (CMS/HCC) Take 1 tablet (200 mg) by mouth two times daily. 180 tablet 3 04/02/20 24 025 Active atorvastatin (Lipitor) 80 mg tabletIndication s:Coronary artery disease due to lipid rich plaque Take 1 tablet (80 mg) by mouth at bedtime. 90 tablet 3 04/02/20 24 Active dapagliflozin [...] daily. 60 tablet 12 10/31/19 25 Active potassium chloride (Klor-Con) 20 mEq packetIndication s:Hypokalemia Take 40 mEq by mouth in the morning AND 20 mEq daily with evening meal. 270 packet 3 11/13/19 25 026 Active Additional Information Patient not taking.Reported on 12/09/2024 bumetanide (Bumex) 1 mg tabletIndication s:Acute HFrEF (heart failure with reduced ejection fraction) (CMS/HCC),Bilate ral lower extremity edema Take 1 tablet (1 mg) by mouth two times daily. 60 tablet 11 11/19/19 25 Active Additional Information Patient not taking.Reported on 12/09/2024 spironolactone (Aldactone) 25 mg tabletIndication s:Chronic systolic heart failure (CMS/HCC) Take 1 tablet (25 mg) by mouth once daily as directed. 45 tablet 3 11/19/19 25 Active Additional Information Patient not taking.Reported on 12/09/2024 potassium chloride CR (K-Tab) 20 mEq ER tabletIndication s:SOB (shortness of breath) Take 1 tablet (20 mEq) by mouth two times daily. Do not crush, chew, or split. This is a decrease 180 tablet 3 11/19/19 25 026 Active Additional Information Patient not taking.Reported on 12/09/2024 potassium chloride (Klor-Con) 20 mEq packetIndication s:Congestive heart failure, unspecified HF chronicity, unspecified heart failure type (CMS/HCC) Take 20 mEq by mouth two times daily. 180 packet 3 11/19/19 25 026 Active Additional Information Patient not taking.Reported on 12/09/2024 apixaban (Eliquis) 2.5 mg tabletIndication s:Paroxysmal atrial fibrillation (CMS/HCC) Take 1 tablet (2.5 mg) by mouth two times daily. 12/10/19 25 026 Active apixaban (Eliquis) 5 mg tabletIndication s:Cardiac arrest (CMS/HCC) Take 1 tablet (5 mg) by mouth two times daily. 60 tablet 11 04/02/20 24 025 Discontin ued(Dose adjustmen t) clopidogrel (Plavix) 75 mg tabletIndication s:Coronary artery disease involving osage coronary artery of osage heart without angina pectoris TAKE 1 TABLET BY MOUTH EVERY DAY 90 tablet 3 04/02/20 24 025 Discontin ued(Thera py completed ) spironolactone (Aldactone) 25 mg tabletIndication s:Chronic systolic [...] Encounters Date Type Department Care Team Description 12/09/2024 3:30 PM EDT Office Visit [address] [address] Phong Kelley MD Coronary artery disease involving osage coronary artery of osage heart without angina pectoris (Primary Dx); Status post insertion of drug eluting coronary artery stent; Chronic systolic congestive heart failure (CMS/HCC); Paroxysmal atrial fibrillation (CMS/HCC); ICD (implantable cardioverter-defibrill ator), dual, in situ; Chronic kidney disease, stage IV (severe) (CMS/HCC) 11/29/2024 3:20 PM EDT Office Visit [address] [address] Eren Johansen CNP Acute HFrEF (heart failure with reduced ejection fraction) (CMS/HCC) (Primary Dx); Acute kidney injury superimposed on CKD; Bilateral lower extremity edema; Chronic venous insufficiency; Paroxysmal atrial fibrillation (CMS/HCC); ICD (implantable cardioverter-defibrill ator) in place; Benign hypertensive heart disease with heart failure (CMS/HCC); Mixed hyperlipidemia; Chronic systolic heart failure (CMS/HCC) 11/26/2024 Orders Only [address] [address] Teo Estrada MD 11/25/2024 Orders Only [facility] [address] [place] [address] Jg Cason MD 11/18/2024 11:40 AM EDT Office Visit [address] [address] Eren Johansen CNP Acute HFrEF (heart failure with reduced ejection fraction) (CMS/HCC) (Primary Dx); Hypokalemia; Paroxysmal atrial fibrillation (CMS/HCC); Acute kidney injury superimposed on CKD; ICD (implantable cardioverter-defibrill ator) in place; Benign hypertensive heart disease with heart failure (CMS/HCC); Mixed hyperglyceridemia; Chronic venous insufficiency; Chronic systolic heart failure (CMS/HCC); Bilateral lower extremity edema 11/18/2024 Orders Only [facility] [address] [place] [address] Kimmy Child MA Congestive heart failure, unspecified HF chronicity, unspecified heart failure type (CMS/HCC) (Primary Dx) 11/18/2024 Orders Only [address] [address] Kimmy Child MA Coronary artery disease due to lipid rich plaque (Primary Dx); SOB (shortness of breath) 11/12/2024 3:40 PM EDT Office Visit [address] [address] Eliana Hubbard CNP Acute on chronic systolic heart failure (CMS/HCC) (Primary Dx); Cardiac arrest (CMS/HCC); Hypokalemia; ICD (implantable cardioverter-defibrill ator) in place; Paroxysmal atrial fibrillation (CMS/HCC); Benign hypertensive heart disease with heart failure (CMS/HCC); Mixed hyperlipidemia; Hematuria, unspecified type; Atherosclerosis of osage coronary artery of osage heart without angina pectoris; Impairment of balance; Hypotension due to drugs; Venous insufficiency 11/12/2024 Orders Only [address] [place] [address] Eliana Hubbard CNP 11/07/2024 Orders Only [address] [address] Kimmy Child MA custodial current use of amiodarone (Primary Dx) 10/30/2024 3:00 PM EDT Office Visit [address] [place] [address] Eliana Hubbard CNP Acute on chronic systolic heart failure (CMS/HCC) (Primary Dx); Paroxysmal atrial fibrillation (CMS/HCC); ICD (implantable cardioverter-defibrill ator) in place; Benign hypertensive heart disease with heart failure (CMS/HCC); Mixed hyperlipidemia; Cardiac arrest (CMS/HCC); Coronary artery disease due to lipid rich plaque; Kidney stone; Hematuria, unspecified type; Impairment of balance 10/29/2024 8:35 AM EDT Ancillary Procedure [facility] [address] [place] [address] Pre-operative cardiovascular examination, ICD in place 10/28/2024 Orders Only [facility] [address] [place] [address] Jg Cason MD 10/19/2024 Orders Only [facility] [address] [place] [phone] Jaxon Marquez MD 10/17/2024 2:45 PM EDT Follow-Up [facility] Urology [address] [place] [address] Tino Langston MD Kidney stone 09/27/2024 10:40 PM EDT Ancillary Procedure [facility] [address] [place] [address] Pre-operative cardiovascular examination, ICD in place 09/27/2024 Orders Only [facility] [address] [place] [phone] Jg Cason MD from Last 3 Months [...] drink = 0.6 oz pur e alcohol) [facility] Utilities Answer Date Recorded In the past 12 months has e electric, gas, oil, or water company [...] place to sleep or slept in a fpc (including now)? No 02/26/2024 Hunger Vital Sign [...] Pulse 71 12/09/2024 4:07 PM EDT Temperature 36.3 C (97.3 F) 09/04/2024 11:25 AM EDT Respiratory Rate 24 09/04/2024 12:20 PM EDT Oxygen Saturation 95% 12/09/2024 4:07 PM EDT Inhaled Oxygen Concentration - - Weight 93 kg (205 lb) 12/09/2024 4:07 PM EDT Height 182.9 cm (6') 12/09/2024 4:07 PM EDT Body Mass Index 27.8 12/09/2024 4:07 PM EDT Plan of Treatment Upcoming Encounters Date Type Department Care Team (Late st Contact Info) Description 12/19/2024 9:30 AM EDT Appointment [facility] Heart [facility] [address] [place] [address] 12/19/2024 10:30 AM EDT Hospital Encounter [facility] [address] [place] [address] Phong Kelley MD [address] [place] [address] Acute HFrEF (heart failure with reduced ejection fraction) ([facility]) 12/19/2024 10:30 AM EDT - 12/19/2024 11:30 AM EDT Surgery [facility] [address] [place] [address] Phong Kelley MD [address] [place] [address] Right heart cath [20674 (CPT )] 01/17/2025 11:00 AM EDT Follow-Up [facility] Urology [address] [place] [address] Tino Langston MD [address] [place] [address] Health Maintenance Due Date Last [...] this topic Medical Devices Implanted Type Area It Compliance Analyst Device Identifier Shelf Expiration Date Model / Serial / Lot Jared Ruvalcaba El,Df4-Dr - [id number] - [id number] Implanted:Qty: 1 on 03/04/2024 by Jaxon Marquez MD at [facility] ICD Tapshot, [employer] [id number] 12/18/2025 [id number] / [id number] / Wayne 4-Front S Active Fix Single Coil 64cm Implanted:Qty: 1 on 03/04/2024 by Jaxon Marquez MD at [facility] Lead Tapshot, [employer] [id number] 01/27/2026 [id number] / [id number] / Ingevity+ Is-1 Bi Positive Fix Ra/Rv 52cm Implanted:Qty: 1 on 03/04/2024 by Jaxon Marquez MD at [facility] Lead Tapshot, [employer] [id number] 01/01/2026 [id number] / [id number] / Stent,Ureteral ,Soft,Tria,6x2 6 - [id number] Implanted:Qty: 1 on 09/04/2024 by Qasim Hernandez MD at [facility] Stent Left: Ureter [employer] [id number] 04/16/2027 [id number] / / [id number] Explanted Type Area It Compliance Analyst Device Identifier Shelf Expiration Date Model / Serial / Lot Stent,Ureteral Kit,[id number] - [id number] Implanted:Qty: 1 on 05/21/2024 by Tino Langston MD at [facility] Explanted:Qty: 1 on 06/19/2024 by Tino Langston MD at [facility] Stent Left: Kidney [employer] [id number] 10/31/2026 [id number] / [id number] Stent,Ureteral Kit,[id number] - [id number] Implanted:Qty: 1 on 06/19/2024 by Tino Langston MD at [facility] Explanted:Qty: 1 on 09/04/2024 by Qasim Hernandez MD at [facility] Stent Left: Kidney [employer] [id number] 01/02/2027 [id number] / [id number] Procedures Procedure Name Priority Date/Time Associated Diagnosis [...] period is included. BSA 2.27 m2 CPACS Result [facility] Jaxon Marquez MD CV IMPLANTABLE CARDIAC DEVICE AL OCEDURES Final Result CPACS * Pro-BNP (11/25/2024 8:38 AM EDT) Blood Venous blood specimen / Unknown Result [facility] Historical Provider MD LAB BLOOD ORDERABLES Lorri l Result * Basic metabolic panel (11/25/2024 8:38 AM EDT) Only the most recent of2 resultswithin the time period is included. Blood Venous blood specimen / Unknown Result [facility] Provider LAB BLOOD ORDERABLES [place] l Result * Cardiac device check - Remote ICD (11/25/2024 12:00 AM EDT) Only the most recent of4 resultswithin the time period is included. Anatomical Region Laterality Modality Other 11/25/2024 Result [facility] Jg Cason MD CV IMPLANTABLE CARDIAC DEVICE PROCEDURES Final Result * B-type natriuretic peptide (11/11/2024 2:19 PM EDT) Blood Venous blood specimen / Unknown Eliana Hubbard CNP LAB BLOOD ORDERABLES Final Re sult from Last 3 Months Insurance [employer] Advance Directives * Full Code (Latest Code Status on File) Date Activated Date Inactivated Comments 02/26/2024 1:07 PM 03/06/2024 7:44 PM Care Teams Examination Proctor Relationship Specialty Start Date End Date Mere Gerber CNP [address] [place] [address], [place] [phone] PCP - General Family Medicine 01/10/24
--- OUTSIDE RECORDS SUMMARY | 2024-12-17 16:13 | XMS_ITS | Patient Health Record ---
Author Organization [facility] [place] Address [address] [place] [address] Care Team Providers Care Veterinary Dentist Name Role Phone Mere Gerber Primary Care Provider Layton Oconnell Unavailable [phone] Allergies No Known Allergies Results Component Value Reference Range Notes COVID-19, Flu A+B IH Reviewed date:04/03/2024 08:35:47 PM Interpretation: Performing Lab: Notes/Report: COVID - FLU A - FLU B - Control + PROF 14(COMP METB) Reviewed date:04/03/2024 08:35:47 PM Interpretation: Performing Lab: Notes/Report: [facility] , Sodium 145 136-145 mmol/L Potassium [...] Globulin Ratio 0.7 Performing Lab: see note - [facility] LB PTT Reviewed date:04/03/2024 08:35:47 PM Interpretation: Performing Lab: Notes/Report: [facility] , Partial Thromboplastin Time 29.2 22.3-36.2 sec Performing Lab: see note - [facility] LB Prothrombin Time INR Reviewed date:04/03/2024 08:35:47 PM Interpretation: Performing Lab: Notes/Report: [facility] , Prothrombin Time 11.9 9.0-11.6 sec INR 1.14 2.5-3.5 RECURRENT THROMBOSIS 2.5-3.5 FOR PROSTHETIC HEART VALVE REPLACEMENT 2.0-3.0 CONDITIONS NOT LISTED BELOW DESIRED INR: Performing Lab: see note - [facility] LB CBC AUTO DIFF Reviewed date:05/13/2024 08:38:16 PM Interpretation: Performing Lab: Notes/Report: [facility] , White Blood Count 6.6 4.0-11.0 [...] 3/uL Performing Lab: see note ML - [facility] LB PROF 14(COMP METB) Reviewed date:05/13/2024 08:38:16 PM Interpretation: Performing Lab: Notes/Report: [facility] , Sodium 146 136-145 mmol/L Potassium [...] 0.8 Performing Lab: see note ML - [facility] LB PTT Reviewed date:05/13/2024 08:38:16 PM Interpretation: Performing Lab: Notes/Report: [facility] , Partial Thromboplastin Time 30.5 22.3-36.2 sec Performing Lab: see note ML - [facility] LB Prothrombin Time INR Reviewed date:05/13/2024 08:38:16 PM Interpretation: Performing Lab: Notes/Report: [facility] , Prothrombin Time 12.4 9.0-11.6 sec INR 1.19 2.5-3.5 FOR PROSTHETIC HEART VALVE REPLACEMENT 2.5-3.5 RECURRENT THROMBOSIS DESIRED INR: 2.0-3.0 CONDITIONS NOT LISTED BELOW Performing Lab: see note ML - [facility] LB ITP Reviewed date:05/15/2024 03:40:58 PM Interpretation: Performing Lab: Notes/Report: Source Facility: [place] [address] Cardiac Rehab Report Signed Patient: JUSTUS LOYOLA MR#: [id number] : 1945 Acct:[id number] Age/Sex: 78 / M ADM Date: 05/13/24 Loc: CR Attending Dr: MERE GERBER Ordering Physician: Rey Antoine D.O. Date of Service: 05/13/24 Procedure(s): ITP Accession Number(s): [id number] cc: [facility] Test Date: 2024-05-13 Pat Name: JUSTUS LOYOLA Department: Room: - Gender: Male Bisque Placer: : 1945 Requested By: REY ANTOINE Order Number: [id number] Tera MD: REY ANTOINE Interpretive Statements Session Date: Electronically Signed On 05-15-2024 8:06:17 EST by REY ANTOINE Dictated By: Rey Antoine D.O. Signed By: 05/15/24 0805/15/24 08 DD/ 1527 TD/TT: Artificial Breeding Distributor: [place] [address] Cardiac Rehab Report Signed Patient: AI LOYOLA RD MR#: [id number] : 1945 Acct:[id number] Age/Sex: 78 / M ADM Date: 05/13/24 Loc: CR Attending Dr: MERE GERBER Ordering Physician: Rey Antoine D.O. Date of Service: 05/13/24 Procedure(s): ITP Accession Number(s): [id number] cc: [facility] Test Date: 2024-05-13 Pat Name: JUSTUS CORRAL Department: 22 Room: - Gender: Male Bisque Placer: : 1945 Requested By: REY ANTOINE Order Number: [id number] Tera MD: REY ANTOINE Interpretive Statements Session Date: Electronically Ioana d On 05-15-2024 8:06:17 EST by REY ANTOINE Dictated By: Rey Antoine D.O. Signed By: 05/15/2480505/15/24805 DD/ 1527 TD/TT: Artificial Breeding Distributor: Box Test Reviewed date:05/19/2024 08:32:40 PM Interpretation: Performing Lab: Notes/Report: URINE CULTURE [facility] , BOX Test Sent Out URINE CULTURE BOX Test Reference Lab [facility] BOX Test Date Sent 05/14/24 BOX Test Result SEE SCANNED REPORT Performing Lab: see note ML - [facility] LB CBC AUTO DIFF Reviewed date:06/17/2024 09:02:32 PM Interpretation: Performing Lab: Notes/Report: [facility] , White Blood Count 5.1 4.0-11.0 [...] 3/uL Performing Lab: see note ML - [facility] LB Urine Culture - [facility] Reviewed date:09/02/2024 08:08:46 PM Interpretation: Performing Lab: Notes/Report: [facility] , Urine Culture - [facility] See Below For Report Urine Culture - [facility] <9,000 colonies/ml mixed Urine Culture - [facility] bacterial skin contaminants Urine Culture - [facility] <9,000 colonies/ml mixed Urine Culture - [facility] 2 Days Urine Culture - [facility] <9,000 colonies/ml mixed Urine Culture - [facility] Urine Culture - [facility] <9,000 colonies/ml mixed Urine Culture - [facility] Testing performed a [facility] Urine Culture - [facility] <9,000 colonies/ml mixed Urine Culture - [facility] [address] [place] [address] Urine Culture - [facility] <9,000 colonies/ml mixed Performing Lab: see note ML - [facility] LB BNP Reviewed date:11/11/2024 09:21:35 PM Interpretation: Performing Lab: Notes/Report: [facility] , NT Pro B Type Natriuretic Pept 360.0 <=1800.0 pg/mL Performing Lab: see note ML - [facility] LB PROF CHEM 8 (BAS METB) Reviewed date:11/11/2024 09:21:35 PM Interpretation: Performing Lab: Notes/Report: [facility] , Sodium 144 136-145 mmol/L Potassium 2.6 3.5-5.1 mmol/L RESULTS SANDOVAL D TO DR. GREGORY FROM [place] Chloride 104 98-107 mmol/L Carbon Dioxide 33.0 21.0-32.0 mmol/L Anion Gap 9.6 Glucose 94 74-106 mg/dL Blood Urea Nitrogen 24.0 7.0-18.0 mg/dL Creatinine 1.89 0.70-1.30 mg/dL Estimated GFR ( Katie 42 >=60 mL/min/1.73m 2 Estimated GFR (Non- Rhea 35 >=60 mL/min/1.73m 2 BUN Creatinine Ratio 12.7 Calcium 9.3 8.5-10.1 mg/dL Performing Lab: see note ML - [facility] LB MAGNESIUM Reviewed date:11/18/2024 12:51:13 PM Interpretation: Performing Lab: Notes/Report: [facility] , Magnesium 2.2 1.8-2.4 mg/dL Performing Lab: see note - [facility] LB PROF CHEM 8 (BAS METB) Reviewed date:11/18/2024 12:51:13 PM Interpretation: Performing Lab: Notes/Report: [facility] , Sodium 148 136-145 mmol/L Potassium [...] 9.5 8.5-10.1 mg/dL Performing Lab: see note - [facility] LB XR chest 2V Reviewed date:11/18/2024 12:51:13 PM Interpretation: Performing Lab: Notes/Report: Source Facility: [place] [address] [place] [address] XRay Report Signed Patient: JUSTUS LOYOLA MR#: [id number] : 1945 Acct:[id number] Age/Sex: 79 / M ADM Date: 11/18/24 Loc: LAB Attending Dr: RANDOLPH PROCTOR APRN Ordering Physician: RANDOLPH PROCTOR APRN Date of Service: 11/18/24 Procedure(s): XR chest 2V Accession Number(s): [id number] cc: Kashmir Oconnell M.D.; RANDOLPH PROCTOR APRN [place] [address] Patient Name: JUSTUS LOYOLA MRN: [id number] date: 1945 Sex: M Assigned Patient Location: LAB Current Patient Location: LAB Accession/Order Number: [id number] Exam Date: 11/18/2024 10:51 Report Date: 11/18/2024 10:56 At the request of: RANDOLPH PROCTOR APRN Procedure: XR chest 2V PA AND LATERAL CHEST: CLINICAL HISTORY: Social Research Assistant Currents Use Of Amiodarone COMPARISON: 12/11/2023 There [...] Galeana M.D. 11/18/2024 10:56 AM Dictation Location: [place] [address] Electronically authenticated by: [id number] Y Date: 11/18/2024 10:56 Dictated By: Katy Galeana M.D. Signed By: 11/18/24 1058 DD/ 1056 TD/TT: Artificial Breeding Distributor: [place] [address] XRay Report Signed Patient: AI LOYOLA RD MR#: [id number] : 1945 Acct:[id number] Age/Sex: 79 / M ADM Date: 11/18/24 Loc: LAB Attending Dr: NAYA PROCTOR APRN Ordering Physician: RANDOLPH PROCTOR APRN Date of Service: 11/18/24 Procedure(s): XR zbigniew st 2V Accession Number(s): [id number] cc: Kashmir Oconnell M.D. ; RANDOLPH PROCTOR APRN [place] [address] Patient Name: JUSTUS LOYOLA MRN: [id number] date: 1945 Sex: M Assigned Patient Location: LAB Current Patient Location: LAB Accession/Order Numb er: [id number] Exam Date: 11/18/2024 10:51 Report Date: 11/18/2024 [...] Galeana M.D. 11/18/2024 10:56 AM Dictation Location: [place] [address] Electronically authenticated by: [id number] Y Date: 11/18/2024 10:56 Dictated By: Katy Galeana M.D. Signed By: 11/18/24 1058 DD/ 1056 TD/TT: Artificial Breeding Distributor: BNP Reviewed date:11/25/2024 06:09:50 PM Interpretation: Performing Lab: Notes/Report: [facility] , NT Pro B Type Natriuretic Pept 268.0 <=1800.0 pg/mL Performing Lab: see note ML - [facility] LB PROF CHEM 8 (BAS METB) Reviewed date:11/25/2024 06:09:50 PM Interpretation: Performing Lab: Notes/Report: [facility] , Sodium 140 136-145 mmol/L Potassium 4.8 [...] Performing Lab: see note ML - [facility] LB CBC AUTO DIFF Reviewed date:12/08/2024 09:29:11 PM Interpretation: Performing Lab: Notes/Report: [facility] , White Blood Count 5.5 4.0-11.0 10 3/uL Red Blood Count 4.04 4.70-6.10 10 6/uL Hemoglobin 12.7 14.0-18.0 g/dL Hematocrit 39.0 42.0-54.0 % Mean Corpuscular Volume 96.5 80.0-94.0 fL Mean Corpuscular Hemoglobin 31.4 25.9-34.0 pg Mean Corpuscular HGB Conc 32.6 29.9-35.2 g/dL Red Cell Distribution Width 14.6 11.0-15.0 % Platelet Count 125 150-450 10 3/uL Mean Platelet Volume 11.2 9.5-13.5 fL Neutrophils Percent Auto 67.2 43.0-75.0 % Lymphocytes Percent Auto 15.4 20.5-60.0 % Monocytes Percent Auto 12.3 1.7-12.0 % Eosinophils Percent Auto 4.0 0.9-7.0 % Basophils Percent Auto 0.7 0.2-2.0 % Immature Granulocytes Pct Auto 0.4 0.0-0.5 % Neutrophils Absolute Auto 3.7 1.4-6.5 10 3/uL Lymphocytes Absolute Auto 0.9 1.2-3.8 10 3/uL Monocytes Absolute Auto 0.7 0.3-0.8 10 3/uL Eosinophils Absolute Auto 0.2 0.0-0.7 10 3/uL Basophils Absolute Auto 0.0 0.0-0.1 10 3/uL Immature Granulocytes Abs Auto 0.02 0.00-0.03 10 3/uL Performing Lab: see note ML - [facility] LB TSH Reviewed date:08/28/2024 08:07:13 PM Interpretation: Performing Lab: Notes/Report: [facility] , Thyroid Stimulating Hormone 2.655 0.358-3.740 uIU/mL Performing Lab: see note ML - [facility] LB PROF 14(COMP METB) Reviewed date:08/28/2024 08:07:13 PM Interpretation: Performing Lab: Notes/Report: [facility] , Sodium 145 136-145 mmol/L Potassium [...] 0.7 Performing Lab: see note ML - [facility] LB FREE T4 Reviewed date:08/28/2024 08:07:13 PM Interpretation: Performing Lab: Notes/Report: [facility] , Free T4 1.46 0.76-1.46 ng/dL Performing Lab: see note ML - [facility] LB CBC AUTO DIFF Reviewed date:08/28/2024 08:07:13 PM Interpretation: Performing Lab: Notes/Report: [facility] , White Blood Count 6.5 4.0-11.0 [...] Performing Lab: see note ML - [facility] LB ITP Reviewed date:07/03/2024 07:44:10 PM Interpretation: Performing Lab: Notes/Report: Source Facility: [place] [address] Cardiac Rehab Report Signed Patient: JUSTUS LOYOLA MR#: [id number] : 1945 Acct:[id number] Age/Sex: 78 / M ADM Date: 05/16/24 Loc: CR Attending Dr: MERE GERBER Ordering Physician: Rey Antoine D.O. Date of Service: 07/02/24 Procedure(s): ITP Accession Number(s): [id number] cc: [facility] Test Date: 2024-07-02 Pat Name: JUSTUS LOYOLA Department: Room: - Gender: Male Bisque Placer: : 1945 Requested By: REY ANTOINE Order Number: [id number] Reading MD: REY ANTOINE Interpretive Statements Session Date: Electronically Signed On 07-03-2024 7:14:14 EST by REY ANTOINE Dictated By: Rey Antoine D.O. Signed By: 07/03/2414 07/03/2414 DD/ 5 TD/TT: Artificial Breeding Distributor: [place] [address] Cardiac Rehab Report Signed Patient: AI LOYOLA RD MR#: [id number] : 1945 Acct:[id number] Age/Sex: 78 / M ADM Date: 05/16/24 Loc: CR Attending Dr: MERE GERBER Ordering Physician: Rey Antoine D.O. Date of Service: 07/02/24 Procedure(s): ITP Accession Number(s): [id number] cc: [facility] Test Date: 2024-07-02 Pat Name: JUSTUS CORRAL Department: 22 Room: - Gender: Male Bisque Placer: : 1945 Requested By: REY ANTOINE Order Number: [id number] Reading MD: REY ANTOINE Interpretive Statements Session Date: Electronically Ioana d On 07-03-2024 7:14:14 EST by REY ANTOINE Dictated By: Rey Antoine D.O. Signed By: 07/03/2414 07/03/2414 DD/ 5 TD/TT: Artificial Breeding Distributor: Prothrombin Time INR Reviewed date:06/17/2024 09:02:32 PM Interpretation: Performing Lab: Notes/Report: [facility] , Prothrombin Time 12.1 9.0-11.6 sec INR 1.16 2.5-3.5 FOR PROSTHETIC HEART VALVE REPLACEMENT DESIRED INR: 2.5-3.5 RECURRENT THROMBOSIS 2.0-3.0 CONDITIONS NOT LISTED BELOW Performing Lab: see note ML - [facility] LB PTT Reviewed date:06/17/2024 09:02:32 PM Interpretation: Performing Lab: Notes/Report: [facility] , Partial Thromboplastin Time 29.1 22.3-36.2 sec Performing Lab: see note ML - [facility] LB PROF 14(COMP METB) Reviewed date:06/17/2024 09:02:32 PM Interpretation: Performing Lab: Notes/Report: [facility] , Sodium 141 136-145 mmol/L Potassium [...] 0.8 Performing Lab: see note ML - [facility] LB CBC AUTO DIFF Reviewed date:04/03/2024 08:35:47 PM Interpretation: Performing Lab: Notes/Report: [facility] , White Blood Count 5.6 4.0-11.0 [...] 10 3/uL Performing Lab: see note - [facility] PROF CHEM 8 (BAS METB) Reviewed date:12/08/2024 09:29:11 PM Interpretation: Performing Lab: Notes/Report: [facility] , Sodium 140 136-145 mmol/L Potassium 4.3 3.5-5.1 mmol/L Chloride 104 98-107 mmol/L Carbon Dioxide 26.4 21.0-32.0 mmol/L Anion Gap 13.9 Glucose 104 74-106 mg/dL Blood Urea Nitrogen 49.0 7.0-18.0 mg/dL Creatinine 3.06 0.70-1.30 mg/dL Estimated GFR ( Katie 24 >=60 mL/min/1.73m 2 Estimated GFR (Non- Rhea 20 >=60 mL/min/1.73m 2 BUN Creatinine Ratio 16.0 Calcium 9.7 8.5-10.1 mg/dL Performing Lab: see note - [facility] BNP Reviewed date:12/08/2024 09:29:11 PM Interpretation: Performing Lab: Notes/Report: [facility] , NT Pro B Type Natriuretic Pept 606.0 <=1800.0 pg/mL Performing Lab: see note - [facility] Prothrombin Time INR Reviewed date:08/28/2024 08:07:13 PM Interpretation: Performing Lab: Notes/Report: [facility] , Prothrombin Time 11.8 9.0-11.6 sec INR 1.13 2.5-3.5 FOR PROSTHETIC HEART VALVE REPLACEMENT DESIRED INR: 2.0-3.0 CONDITIONS NOT LISTED BELOW 2.5-3.5 RECURRENT THROMBOSIS Performing Lab: see note [facility] PTT Reviewed date:08/28/2024 08:07:13 PM Interpretation: Performing Lab: Notes/Report: [facility] , Partial Thromboplastin Time 24.4 22.3-36.2 sec Performing Lab: see note ML - [facility] LB Reason For Referral No Information Medications Medication SIG (Take, Route, Frequency, Duration) Notes Start Date End Date Status Albuterol Sulfate (2.5 MG/3ML) 0.083% 3 mL as needed Inhalation every 6 hrs 04/03/2024 Active Bumetanide 1 MG 1 tablet Orally twic e daily for 30 days 11/27/2024 Active Vitamin D (Ergocalciferol) 1.25 MG (13876 UT) 1 capsule Orally daily Active Walker [...] Problem Status W/U Status Risk Notes Problem 129547714 Paroxysmal atria l fibrillation (I48.0) Active confirmed Problem 042144855 Acute on chronic systolic (congestive) heart failure (I50.23) Active confirmed Problem 76589236 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 Problem Hypertension (11144748) Hypertension (I10) Active confirmed Problem Hypertension (20602773) HTN (hypertension) (I10) Active confirmed Problem Dementia (28803853) Dementia (F03.90) Active co nfirmed Problem 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) Active confirmed Problem hypercholesterolemia (disorder) (23590695) Hypercholesteremia (E78.00) Active confirmed Problem Myocardial infarctio n (04601974) Myocardial infarction (I21.9) Active confirmed Vital Signs Temperature 97.7 degrees Fahrenheit 02/23/2024 Blood pressure diastolic 56 mm Hg 08/20/2024 Height 72 in 08/20/2024 Blood pressure systolic 98 mm Hg 08/20/2024 Weight 202.0 lbs 08/20/2024 BMI 27.39 kg/m2 08/20/2024 Encounters Encounter Location Date Provider Diagnosis [address] [address] 02/23/2024 Mere Gerber Cough R05.9 and Francis a R60.[address] [address] 01/01/2024 Mere Gerber Generalized weakness R53.[address] [address] 08/20/2024 Mere Gerber HTN (hypertension) I [address] [address] 04/03/2024 Layton Hoy Hypertension I10 ; Hypercholesteremia E78.00 ; Myocardial infarction I21.9 ; HTN (hypertension) I10 ; Acute on chronic systolic (congestive) heart failure I50.23 and Dementia F03.[address] [address] 01/01/2024 Mere Gerber [address] [address] 01/04/2024 Mere Gerber [address] [address] 01/05/2024 Mere Gerber [address] [address] 02/23/2024 Mere Gerber HTN (hypertension) I 10 [facility] [address] [place] [facility] [place] [place] [address] 04/03/2024 Layton Khalifhoward [facility] [address] [place] [address] 04/30/2024 Layton Kuortney Acute on chronic sys tolic (congestive) heart failure I50.23 [facility] [address] [place] [place] [place] [address] 05/16/2024 Mere Gerber [facility] [address] [place] [facility] [place] [place] [address] 07/01/2024 Mere Gerber [facility] [address] [place] [facility] [place] [address] 11/25/2024 Mere Gerber Edema R60.9 [facility] [address] [place] [place] [place] [address] 12/08/2024 Layton Oconnell Assessments Encounter Date Diagnosis (ICD Code) Assessment Notes Treatment Notes Treatment Clinical Notes Section Notes 01/01/2024 Generalized weakness (ICD-10 - R53.1) Wheeled walker and wheelchair [facility] patient needs wheeled walker, cane not helpful patient has mobility limitation that impairs ability to participate in MRADL in the home; and this prevents the patient from completing the MRADL ( groomin, toileting) within a reasonable time frame and patient is able to safely use the walker and the funcional mobility can be resolved with a walker 02/23/2024 Edema (ICD-10 - R60.9) check labs fu cardiology, here if needed beforehand 02/23/2024 Cough (ICD-10 - R05.9) continue monitor sx, OTC Meds for comfort flu and covid negative today repeat Covid test Monday at home fu if needed 08/20/2024 HTN (hypertension) (ICD-10 - I10) controlled, [...] Coverage Start Date Coverage End Date [employer]ICARE [address] [place] [address] [id number] Justus Loyola Self - patient is the insured Medical (General) History Medical History History ICD Code Myocardial infarction I21.9 Hypertension I10 Hypercholesteremia E78.00 Surgical History Surgery Date(Month/Year) Defibrillator placement Cardiac Stent Placement Lithotripsy x2 2024 Hospitalization History Reason Date(Month/Year) See Above
--- OUTSIDE RECORDS SUMMARY | 2024-12-17 16:13 | XMS_ITS | Encounter Summary ---
Author Organization [facility] Address [address] [place] [address] Care Team Providers Care Industrial Green Systems Designer Name Role Phone Mere Gerber CNP Primary Care Provider [phone] Encounter Details Date Type Department Care Team (Late st Contact Info) Description 11/25/2024 Orders Only [facility] [address] [place] [address] Jg Cason MD [address] [place] [address] Social History Tobacco Use Types Packs/Day Years Used Date Smoking Tobacco: Former Cigarettes Smokeless Tobacco: Never Alcohol Use Standard Drinks/Week Comments Not Currently 0 (1 standard drink = 0.6 oz pur e alcohol) [facility] Utilities Answer Date Recorded In the past 12 months has e [place] [employer], gas, oil, or water [employer] threatened to shut off services in your [...] Info) Description 12/19/2024 9:30 AM EDT Appointment [facility] [address] [facility] [place] [address] 12/19/2024 10:30 AM EDT Hospital Encounter [facility] [place] [facility] [address] [place] [address] Phong Kelley MD [address] [facility] [address] [facility] [place] [address] Acute HFrEF (heart failure with reduced ejection fraction) ([facility]) 12/19/2024 10:30 AM EDT - 12/19/2024 11:30 AM EDT Surgery [facility] [place] [facility] [address] [place] [address] Phong Kelley MD [address] [facility] [address] [facility] [place] [address] Right heart cath [80151 (CPT )] 01/17/2025 11:00 AM EDT Follow-Up [facility] Urology [address] [place] [address] Tino Langston MD [address] [facility] [address] [place] [address] documented as of this encounter Procedures Procedure Name Priority Date/Time Associated Diagnosis Comments CARDIAC DEVICE CHECK - REMOTE - ICD Routine 11/25/2024 12:00 AM EDT documented in this encounter Results * Cardiac device check - Remote ICD (11/25/2024 12:00 AM EDT) Anatomical Region Laterality Modality Other 11/25/2024 us Jg Cason MD CV IMPLANTABLE CARDIAC DEVICE PROCEDURES Final Result documented in this encounter Visit Diagnoses Not on filedocumented in this encounter Care Teams Industrial Green Systems Designer Relationship Specialty Start Date End Date Mere Gerber CNP [address] [place] [address], [place] [address] PCP - General Family Medicine 01/10/24 documented as of this encounter
--- OUTSIDE RECORDS SUMMARY | 2024-12-17 16:13 | XMS_ITS | Clinical Summary ---
Author Organization [facility] Address [address] [place] [id number] Care Team Providers Care Legal Administrative Secretary Name Role Phone Gloria Quintana OVERHEAD WORKER Unavailable [phone] Social History Tobacco Use Types Packs/Day [...] - PCV) 965 Influenza Vaccine (#1) 2025 07/10/2024 Insurance [employer] MED[employer]ARE [employer] Care Teams Legal Administrative Secretary Relationship Specialty Start Date End Date Gloria Quintana NP [address] [address] MYRIAM Sierra [place] 10/13/24
--- OUTSIDE RECORDS SUMMARY | 2024-12-17 16:13 | XMS_ITS ---
Author Organization [facility] Address [address] [place] [address] Care Team Providers Care Preschool Substitute Teacher Name Role Phone Mere Gerber CNP Primary Care Provider [phone] Transplant Episode Kidney Candidate [facility] ([place], [place]) - [facility] Referred on 05/23/2024 Marked as Deferred on 07/01/2024 Reason: Other - Specify in Note Kidney CoordinatorPaola Olivares MA Phone: N/A Fax: N/A Email: N/A Scores Score Value Updated Exceptions/Reas ons CPRA Not available EPTS (Calc) 81 12/17/2024 Care Team Name Role Phone Fax Email Paola Olivares MA Kidney Coordinator N/A N/A N/A Tino Langston MD Referring Physician [phone] N/A Events Pre-Transplant Referred: 05/23/2024
--- OUTSIDE RECORDS SUMMARY | 2024-12-17 16:13 | XMS_ITS | Encounter Summary ---
Author Organization [facility] Address [address] [place] [facility] [place] [address] Care Team Providers Care Fleet Technician Name Role Phone Gloria Quintana FLIGHT LINE MECHANIC Unavailable [phone] Encounter Details Date Type Department Care Team (Late st Contact Info) Description 07/11/2024 Abstract [facility] [address] [place] [phone] Unallocated, Noms Provider, [address] [place] [address] Social History Tobacco Use Types Packs/Day Years [...] on filedocumented in this encounter Care Teams Fleet Technician Relationship Specialty Start Date End Date Gloria Quintana NP [address] [place], [place] [id number] PCP - Rigo MITCHELL 10/13/24 documented as of this encounter
--- OUTSIDE RECORDS SUMMARY | 2024-12-17 16:13 | XMS_ITS | Encounter Summary ---
Author Organization [facility] Address [address] [facility] [place] [address] Care Team Providers Care Material Planner Name Role Phone Gloria Quintana CHILDREN LIBRARIAN Unavailable [phone] Encounter Details Date Type Department Care Team (Late st Contact Info) Description 07/18/2024 Abstract [facility] [address] [place] [phone] Unallocated, Noms Provider, [address] [place] [address] Social History Tobacco Use Types Packs/Day Years [...] on filedocumented in this encounter Care Teams Material Planner Relationship Specialty Start Date End Date Gloria Quintana NP [address] [place], [place] [id number] PCP - Rigo MITCHELL 10/13/24 documented as of this encounter
--- OUTSIDE RECORDS SUMMARY | 2024-12-17 16:14 | XMS_ITS | Clinical Summary ---
Author Organization [employer] tem Address [id number] [address] [place] [address] Care Team Providers Care Senior Patrol Agent Name Role Phone Mere Gerber CONE BAKER MACHINE-DIRECTOR PROPERTY Primary Care Provider Allergies No known active [...] drink = 0.6 oz pur e alcohol) [facility] Utilities Answer Date Recorded In the past 12 months has e [employer], gas, oil, or water [employer] threatened to shut off services in your [...] law Medical Devices Not on file Insurance [facility] MEDICARE Advance Directives * Full Code (Latest Code Status on File) Date Activated Date Inactivated Comments 06/29/2024 2:29 AM 07/04/2024 7:36 PM Care Teams Senior Patrol Agent Relationship Specialty Start Date End Date Mere Gerber, CONE BAKER MACHINE-DIRECTOR PROPERTY [address] [facility] [place] [address] PCP - General Family Medicine 02/22/24
--- OUTSIDE RECORDS SUMMARY | 2024-12-17 16:14 | XMS_ITS | Encounter Summary ---
Author Organization [facility] Address [address] [place] [address] Care Team Providers Care Boat Canvas Maker Installer Name Role Phone Mere Gerber CNP Primary Care Provider [phone] Encounter Details Date Type Department Care Team (Late st Contact Info) Description 08/31/2024 Orders Only [facility] [address] [place] [address] Jg Cason MD [address] [place] [address] Social History Tobacco Use Types Packs/Day Years Used Date Smoking Tobacco: Former Cigarettes Smokeless Tobacco: Never Alcohol Use Standard Drinks/Week Comments Not Currently 0 (1 standard drink = 0.6 oz pur e alcohol) [facility] Utilities Answer Date Recorded In the past 12 months has e [employer], gas, oil, or water [employer] threatened to shut off services in your [...] Info) Description 12/19/2024 9:30 AM EDT Appointment [facility] Heart [facility] [address] [facility] [place] [address] 12/19/2024 10:30 AM EDT Hospital Encounter [facility] Heart [facility] [address] [place] [address] Phong Kelley MD [address] [facility] [address] [facility] [place] [address] Acute HFrEF (heart failure with reduced ejection fraction) ([facility]) 12/19/2024 10:30 AM EDT - 12/19/2024 11:30 AM EDT Surgery [facility] Heart [facility] [address] [place] [address] Phong Kelley MD [address] [facility] [address] [facility] [place] [address] Right heart cath [54830 (CPT )] 01/17/2025 11:00 AM EDT Follow-Up [facility] Urology [address] [place] [address] Tino Langston MD [address] [facility] [address] [place] [address] documented as of this encounter Procedures Procedure [...] on filedocumented in this encounter Care Teams Boat Canvas Maker Installer Relationship Specialty Start Date End Date Mere Gerber CNP [address] [place] [address], [place] [address] PCP - General Family Medicine 01/10/24 documented as of this encounter
[2024-12-17 16:49] LABS: Hematocrit 37.4 % (42.0-54.0); Hemoglobin 12.2 g/dL (14.0-18.0); Immature Granulocytes Abs Auto 0.01 10^3/uL (0.00-0.03); Immature Granulocytes Pct Auto 0.2 % (0.0-0.5); Lymphocytes Absolute Auto 1.1 10^3/uL (1.2-3.8); Mean Corpuscular HGB Conc 32.6 g/dL (29.9-35.2); Mean Corpuscular Hemoglobin 31.6 pg (25.9-34.0); Mean Corpuscular Volume 96.9 fL (80.0-94.0); Platelet Count 132 10^3/uL (150-450); Red Blood Count 3.86 10^6/uL (4.70-6.10); White Blood Count 4.9 10^3/uL (4.0-11.0)
[2024-12-17 16:50] LABS: Anion Gap 12.3; Blood Urea Nitrogen 19.0 mg/dL (7.0-18.0); Calcium 9.0 mg/dL (8.5-10.1); Carbon Dioxide 27.1 mmol/L (21.0-32.0); Chloride 109 mmol/L (98-107); Estimated GFR (African America 43 (>=60 mL/min/1.73m^2); Estimated GFR (Non-African Ame 35 (>=60 mL/min/1.73m^2); Glucose 100 mg/dL (74-106); Potassium 3.4 mmol/L (3.5-5.1); Sodium 145 mmol/L (136-145)
== END 2024-12-17 16:09 | disposition home or self-care (01) ==
PROVIDERS: PCP Family Medicine; Visit Provider Internal Medicine Interventional Cardiology
DX: I50.22 Chronic systolic (congestive) heart failure (principal); N18.4 Chronic kidney disease, stage 4 (severe)
CPT/HCPCS: 36415; 80048; 85025

== ENCOUNTER 2025-01-02 16:11 | Outpatient (OUT) | payer MEDICARE, SELFPAY ==
--- OUTSIDE RECORDS SUMMARY | 2024-11-25 14:09 | XMS_ITS ---
Author Organization The [facility] in [place] Address [address] [place] [address] Care Team Providers Care Station Installer Name Role Phone Mere Gerber Primary Care Provider REASON FOR VISIT lab results Medications Medication SIG (Take, Route, Fr equency, Duration) Notes Start Date End Date Status Bumetanide 1 MG 1 tablet Orally twic e daily for 30 days 11/27/2024 Active Spironolactone 25 MG 1 tablet Orally once daily Active Encounters Encounter Location Date Provider Diagnosis [facility] [address] [place] [address] 11/25/2024 Mere Gerber Edema R60.9 Assessments Encounter [...] Notes * Neptali LOYOLADOB:1945 (79 yo M)Acc No.[id number]:11/25/2024 Patient: Neptali TORREZ :1945 A ge:79 Y S ex:Male Address:[address] [place] [address], [address] * Refills Refill Spironolactone Tablet, 25 MG, Orally, 1 tablet, once daily Stop Lasix Tablet, 40 MG, Orally, 1 tablet, every morning Start Bumetanide Tablet, 1 MG, Orally, 1 tablet, twice daily, 30 days * true * Date: Generated for Diego culp/Serina/Rachael on: 0 01/02/2025 04:14 PM EDT
--- OUTSIDE RECORDS SUMMARY | 2024-12-18 08:45 | XMS_ITS ---
Author Organization [facility] [place] Address [address] [place] [address] Care Team Providers Care Skip Hoist Operator Name Role Phone Mere Gerber Primary Care Provider [phone] Layton Lenz Unavailable [phone] REASON FOR VISIT lab results- Medications Medication [...] confirmed Encounters Encounter Location Date Provider Diagnosis [facility] [address] [place] [address] 12/18/2024 Layton Oconnell Intermittent claudic ation of [...] Notes * Neptali LOYOLADOB:1945 (79 yo M)Acc No.[id number]:12/18/2024 Patient: Delaney LAFLEURNeptali CORRAL :1945 A ge:79 Y S ex:Male Address:[address] [place], [address] * Refills Start Ferrous Sulfate Tablet, 325 [...] Generated for Diego culp/Serina/Rachael on: 0 01/02/2025 04:15 PM EDT
--- OUTSIDE RECORDS SUMMARY | 2025-01-02 16:15 | XMS_ITS | Clinical Summary ---
Author Organization [employer] tem Address [id number] [address] [place] [address] Care Team Providers Care 3D Animator Name Role Phone Mere Gerber DELIVERY ROOM CLERK-SUPERVISOR ENGINE ASSEMBLY Primary Care Provider Allergies No known active [...] drink = 0.6 oz pur e alcohol) [facility] Utilities Answer Date Recorded In the past 12 months has e [employer], gas, oil, or water [employer] threatened to shut off services in your [...] law Medical Devices Not on file Insurance [facility] MEDICARE Advance Directives * Full Code (Latest Code Status on File) Date Activated Date Inactivated Comments 06/29/2024 2:29 AM 07/04/2024 7:36 PM Care Teams 3D Animator Relationship Specialty Start Date End Date Mere Gerber, DELIVERY ROOM CLERK-SUPERVISOR ENGINE ASSEMBLY [address] [facility] [place] [address] PCP - General Family Medicine 02/22/24
--- OUTSIDE RECORDS SUMMARY | 2025-01-02 16:15 | XMS_ITS | Patient Health Record ---
Author Organization [facility] in [place] Address [address] [place] [address] Care Team Providers Care Requisition Approver Name Role Phone Mere Gerber Primary Care Provider Kourtney Layton Unavailable [phone] Allergies No Known Allergies Results Component Value Reference Range Notes CBC AUTO DIFF Reviewed date:04/03/2024 08:35:47 PM Interpretation: Performing Lab: Notes/Report: [facility] , White Blood Count 5.6 4.0-11.0 10 [...] 3/uL Performing Lab: see note ML - [facility] LB PROF 14(COMP METB) Reviewed date:04/03/2024 08:35:47 PM Interpretation: Performing Lab: Notes/Report: [facility] , Sodium 145 136-145 mmol/L Potassium 3.5 [...] 0.7 Performing Lab: see note ML - [facility] PTT Reviewed date:04/03/2024 08:35:47 PM Interpretation: Performing Lab: Notes/Report: [facility] , Partial Thromboplastin Time 29.2 22.3-36.2 sec Performing Lab: see note ML - [facility] Prothrombin Time INR Reviewed date:04/03/2024 08:35:47 PM Interpretation: Performing Lab: Notes/Report: [facility] , Prothrombin Time 11.9 9.0-11.6 sec INR 1.14 DESIRED INR: 2.0-3.0 CONDITIONS NOT LISTED BELOW 2.5-3.5 FOR PROSTHETIC HEART VALVE REPLACEMENT 2.5-3.5 RECURRENT THROMBOSIS Performing Lab: see note ML - [facility] LB CBC AUTO DIFF Reviewed date:05/13/2024 08:38:16 PM Interpretation: Performing Lab: Notes/Report: [facility] , White Blood Count 6.6 4.0-11.0 10 [...] 3/uL Performing Lab: see note ML - [facility] LB PROF 14(COMP METB) Reviewed date:05/13/2024 08:38:16 PM Interpretation: Performing Lab: Notes/Report: [facility] , Sodium 146 136-145 mmol/L Potassium 3.6 [...] Globulin Ratio 0.8 Performing Lab: see note - [facility] PTT Reviewed date:05/13/2024 08:38:16 PM Interpretation: Performing Lab: Notes/Report: [facility] , Partial Thromboplastin Time 30.5 22.3-36.2 sec Performing Lab: see note - [facility] Prothrombin Time INR Reviewed date:05/13/2024 08:38:16 PM Interpretation: Performing Lab: Notes/Report: [facility] , Prothrombin Time 12.4 9.0-11.6 sec INR 1.19 DESIRED INR: 2.0-3.0 CONDITIONS NOT LISTED BELOW 2.5-3.5 FOR PROSTHETIC HEART VALVE REPLACEMENT 2.5-3.5 RECURRENT THROMBOSIS Performing Lab: see note - [facility] LB ITP Reviewed date:05/15/2024 03:40:58 PM Interpretation: Performing Lab: Notes/Report: Source Facility: [facility] [place] [address] [place] [address] Cardiac Rehab Report Signed Patient: JUSTUS LOYOLA MR#: [id number] : 1945 Acct:[id number] Age/Sex: 78 / M ADM Date: 05/13/24 Loc: CR Attending Dr: MERE GERBER Ordering Physician: Rey Antoine D.O. 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 Signed By: 05/15/24 0806 05/15/24805 DD/ 152 TD/TT: Retoucher: [place] [address] Cardiac Rehab Report Signed Patient: AI LOYOLA RD MR#: [id number] : 1945 Acct:[id number] Age/Sex: 78 / M ADM Date: 05/13/24 Loc: CR Attending Dr: MERE GERBER Ordering Physician: Rey Antoine D.O. 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 Signed By: 05/15/24 0806 05/15/24805 DD/ 1527 TD/TT: Retoucher: Box Test Reviewed date:05/19/2024 08:32:40 PM Interpretation: Performing Lab: Notes/Report: URINE CULTURE [facility] , BOX Test Sent Out URINE CULTURE BOX Test Reference Lab [facility] BOX Test Date Sent 05/14/24 BOX Test Result SEE SCANNED REPORT Performing Lab: see note ML - [facility] LB CBC AUTO DIFF Reviewed date:06/17/2024 09:02:32 PM Interpretation: Performing Lab: Notes/Report: [facility] , White Blood Count 5.1 4.0-11.0 10 [...] Performing Lab: see note ML - [facility] LB ITP Reviewed date:07/03/2024 07:44:10 PM Interpretation: Performing Lab: Notes/Report: Source Facility: [facility] [place] [address] [place] [address] Cardiac Rehab Report Signed Patient: JUSTUS LOYOLA MR#: [id number] : 1945 Acct:[id number] Age/Sex: 78 / M ADM Date: 05/16/24 Loc: CR Attending Dr: MERE GERBER Ordering Physician: Rey Antoine D.O. 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 Signed By: 07/03/24 0714 07/03/24 0714 DD/ 0806 TD/TT: Retoucher: [place] [address] Cardiac Rehab Report Signed Patient: AI LOYOLA RD MR#: [id number] : 1945 Acct:[id number] Age/Sex: 78 / M ADM Date: 05/16/24 Loc: CR Attending Dr: MERE GERBER Ordering Physician: Rey Antoine D.O. 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 Signed By: 07/03/24 0714 07/03/24 0714 DD/ 0806 TD/TT: Retoucher: CBC AUTO DIFF Reviewed date:08/28/2024 08:07:13 PM Interpretation: Performing Lab: Notes/Report: [facility] , White Blood Count 6.5 4.0-11.0 10 [...] Performing Lab: see note ML - [facility] LB Urine Culture - [facility] Reviewed date:09/02/2024 08:08:46 PM Interpretation: Performing Lab: Notes/Report: [facility] , Urine Culture - [facility] See Below For Report Urine Culture - [facility] <9,000 colonies/ml mixed Urine Culture - [facility] bacterial skin contaminants Urine Culture - [facility] <9,000 colonies/ml mixed Urine Culture - [facility] 2 Days Urine Culture - [facility] <9,000 colonies/ml mixed Urine Culture - [facility] Urine Culture - [facility] <9,000 colonies/ml mixed Urine Culture - [facility] Testing performed a [facility] Urine Culture - [facility] <9,000 colonies/ml mixed Urine Culture - [facility] [address] [place] [address] Urine Culture - [facility] <9,000 colonies/ml mixed Performing Lab: see note ML - [facility] LB BNP Reviewed date:11/11/2024 09:21:35 PM Interpretation: Performing Lab: Notes/Report: [facility] , NT Pro B Type Natriuretic Pept 360.0 <=1800.0 pg/mL Performing Lab: see note ML - [facility] PROF CHEM 8 ([facility] METB) Reviewed date:11/11/2024 09:21:35 PM Interpretation: Performing Lab: Notes/Report: [facility] , Sodium 144 136-145 mmol/L Potassium 2.6 3.5-5.1 mmol/L RESULTS SANDOVAL D TO DR. GREGORY FROM DC Chloride 104 98-107 mmol/L Carbon Dioxide 33.0 21.0-32.0 mmol/L Anion Gap 9.6 Glucose 94 74-106 mg/dL Blood Urea Nitrogen 24.0 7.0-18.0 mg/dL Creatinine 1.89 0.70-1.30 mg/dL Estimated GFR ( Katie 42 >=60 mL/min/1.73m 2 Estimated GFR (Non- Rhea 35 >=60 mL/min/1.73m 2 BUN Creatinine Ratio 12.7 Calcium 9.3 8.5-10.1 mg/dL Performing Lab: see note ML - [facility] LB MAGNESIUM Reviewed date:11/18/2024 12:51:13 PM Interpretation: Performing Lab: Notes/Report: [facility] , Magnesium 2.2 1.8-2.4 mg/dL Performing Lab: see note ML - [facility] PROF CHEM 8 (BAS METB) Reviewed date:11/18/2024 12:51:13 PM Interpretation: Performing Lab: Notes/Report: [facility] , Sodium 148 136-145 mmol/L Potassium 4.7 [...] Performing Lab: see note ML - [facility] LB XR chest 2V Reviewed date:11/18/2024 12:51:13 PM Interpretation: Performing Lab: Notes/Report: Source Facility: [facility] [place] [address] XRay Report Signed Patient: JUSTUS LOYOLA MR#: [id number] : 1945 Acct:[id number] Age/Sex: 79 / M ADM Date: 11/18/24 Loc: LAB Attending Dr: RANDOLPH PROCTOR APRN Ordering Physician: RANDOLPH PROCTOR APRN Date of Service: 11/18/24 Procedure(s): XR chest 2V Accession Number(s): [id number] cc: Kashmir Oconnell M.D.; RANDOLPH PROCTOR APRN [place] [address] Patient Name: JUSTUS LOYOLA MRN: [id number] date: 1945 Sex: M Assigned Patient Location: LAB Current Patient Location: LAB Accession/Order Number: [id number] Exam Date: 11/18/2024 10:51 Report Date: 11/18/2024 10:56 At the request of: RANDOLPH PROCTOR APRN Procedure: XR chest 2V PA AND LATERAL CHEST: CLINICAL HISTORY: Long-Term Currents Use Of Amiodarone COMPARISON: 12/11/2023 There [...] Galeana M.D. 11/18/2024 10:56 AM Dictation Location: RADIO-PC-02 Electronically authenticated by: [id number] Y Date: 11/18/2024 10:56 Dictated By: Katy Galeana M.D. Signed By: 11/18/24 1058 DD/ 1056 TD/TT: Retoucher: [place] [address] XRay Report Signed Patient: AI LOYOLA RD MR#: [id number] : 1945 Acct:[id number] Age/Sex: 79 / M ADM Date: 11/18/24 Loc: LAB Attending Dr: NAYA PROCTOR APRN Ordering Physician: RANDOLPH PROCTOR APRN Date of Service: 11/18/24 Procedure(s): XR zbigniew st 2V Accession Number(s): [id number] cc: Kashmir Oconnell M.D. ; RANDOLPH PROCTOR APRN [place] [address] Patient Name: JUSTUS LOYOLA MRN: [id number] date: 1945 Sex: M Assigned Patient Location: LAB Current Patient Location: LAB Accession/Order Numb er: [id number] Exam Date: 11/18/2024 10:51 Report Date: 11/18/2024 [...] Galeana M.D. 11/18/2024 10:56 AM Dictation Location: [place] [address] Electronically authenticated by: [id number] Y Date: 11/18/2024 10:56 Dictated By: Katy Galeana M.D. Signed By: 11/18/24 1058 DD/ 1056 TD/TT: Retoucher: BNP Reviewed date:11/25/2024 06:09:50 PM Interpretation: Performing Lab: Notes/Report: [facility] , NT Pro B Type Natriuretic Pept 268.0 <=1800.0 pg/mL Performing Lab: see note ML - [facility] LB PROF CHEM 8 (BAS METB) Reviewed date:11/25/2024 06:09:50 PM Interpretation: Performing Lab: Notes/Report: [facility] , Sodium 140 136-145 mmol/L Potassium 4.8 [...] Performing Lab: see note ML - [facility] LB CBC AUTO DIFF Reviewed date:12/08/2024 09:29:11 PM Interpretation: Performing Lab: Notes/Report: [facility] , White Blood Count 5.5 4.0-11.0 10 [...] 3/uL Performing Lab: see note ML - [facility] LB PROF CHEM 8 (BAS METB) Reviewed date:12/08/2024 09:29:11 PM Interpretation: Performing Lab: Notes/Report: [facility] , Sodium 140 136-145 mmol/L Potassium 4.3 3.5-5.1 mmol/L Chloride 104 98-107 mmol/L Carbon Dioxide 26.4 21.0-32.0 mmol/L Anion Gap 13.9 Glucose 104 74-106 mg/dL Blood Urea Nitrogen 49.0 7.0-18.0 mg/dL Creatinine 3.06 0.70-1.30 mg/dL Estimated GFR ( Katie 24 >=60 mL/min/1.73m 2 Estimated GFR (Non- Rhea 20 >=60 mL/min/1.73m 2 BUN Creatinine Ratio 16.0 Calcium 9.7 8.5-10.1 mg/dL Performing Lab: see note ML - [facility] LB BNP Reviewed date:12/08/2024 09:29:11 PM Interpretation: Performing Lab: Notes/Report: [facility] , NT Pro B Type Natriuretic Pept 606.0 <=1800.0 pg/mL Performing Lab: see note - [facility] LB Prothrombin Time INR Reviewed date:08/28/2024 08:07:13 PM Interpretation: Performing Lab: Notes/Report: [facility] , Prothrombin Time 11.8 9.0-11.6 sec INR 1.13 DESIRED INR: 2.0-3.0 CONDITIONS NOT LISTED BELOW 2.5-3.5 FOR PROSTHETIC HEART VALVE REPLACEMENT 2.5-3.5 RECURRENT THROMBOSIS Performing Lab: see note ML - [facility] LB TSH Reviewed date:08/28/2024 08:07:13 PM Interpretation: Performing Lab: Notes/Report: [facility] , Thyroid Stimulating Hormone 2.655 0.358-3.740 uIU/mL Performing Lab: see note ML - [facility] LB PTT Reviewed date:08/28/2024 08:07:13 PM Interpretation: Performing Lab: Notes/Report: [facility] , Partial Thromboplastin Time 24.4 22.3-36.2 sec Performing Lab: see note ML - [facility] LB PROF 14(COMP METB) Reviewed date:08/28/2024 08:07:13 PM Interpretation: Performing Lab: Notes/Report: [facility] , Sodium 145 136-145 mmol/L Potassium 3.7 [...] Performing Lab: see note ML - [facility] LB FREE T4 Reviewed date:08/28/2024 08:07:13 PM Interpretation: Performing Lab: Notes/Report: [facility] , Free T4 1.46 0.76-1.46 ng/dL Performing Lab: see note - [facility] LB Prothrombin Time INR Reviewed date:06/17/2024 09:02:32 PM Interpretation: Performing Lab: Notes/Report: [facility] , Prothrombin Time 12.1 9.0-11.6 sec INR 1.16 DESIRED INR: 2.0-3.0 CONDITIONS NOT LISTED BELOW 2.5-3.5 FOR PROSTHETIC HEART VALVE REPLACEMENT 2.5-3.5 RECURRENT THROMBOSIS Performing Lab: see note - [facility] LB PTT Reviewed date:06/17/2024 09:02:32 PM Interpretation: Performing Lab: Notes/Report: [facility] , Partial Thromboplastin Time 29.1 22.3-36.2 sec Performing Lab: see note [facility] PROF 14(COMP METB) Reviewed date:06/17/2024 09:02:32 PM Interpretation: Performing Lab: Notes/Report: [facility] , Sodium 141 136-145 mmol/L Potassium 3.4 [...] Globulin Ratio 0.8 Performing Lab: see note - [facility] LB COVID-19, Flu A+B IH Reviewed date:04/03/2024 08:35:47 PM Interpretation: Performing Lab: Notes/Report: COVID - FLU A - FLU B - Control + PROF CHEM 8 (BAS METB) Reviewed date:12/18/2024 12:46:37 PM Interpretation: Performing Lab: Notes/Report: [facility] , Sodium 145 136-145 mmol/L Potassium 3.4 3.5-5.1 mmol/L Chloride 109 98-107 mmol/L Carbon Dioxide 27.1 21.0-32.0 mmol/L Anion Gap 12.3 Glucose 100 74-106 mg/dL Blood Urea Nitrogen 19.0 7.0-18.0 mg/dL Creatinine 1.85 0.70-1.30 mg/dL Estimated GFR ( Katie 43 >=60 mL/min/1.73m 2 Estimated GFR (Non- Rhea 35 >=60 mL/min/1.73m 2 BUN Creatinine Ratio 10.3 Calcium 9.0 8.5-10.1 mg/dL Performing Lab: see note ML - [facility] LB CBC AUTO DIFF Reviewed date:12/18/2024 12:46:37 PM Interpretation: Performing Lab: Notes/Report: [facility] , White Blood Count 4.9 4.0-11.0 10 3/uL Red Blood Count 3.86 4.70-6.10 10 6/uL Hemoglobin 12.2 14.0-18.0 g/dL Hematocrit 37.4 42.0-54.0 % Mean Corpuscular Volume 96.9 80.0-94.0 fL Mean Corpuscular Hemoglobin 31.6 25.9-34.0 pg Mean Corpuscular HGB Conc 32.6 29.9-35.2 g/dL Red Cell Distribution Width 15.5 11.0-15.0 % Platelet Count 132 150-450 10 3/uL Mean Platelet Volume 10.9 9.5-13.5 fL Neutrophils Percent Auto 62.3 43.0-75.0 % Lymphocytes Percent Auto 22.1 20.5-60.0 % Monocytes Percent Auto 10.7 1.7-12.0 % Eosinophils Percent Auto 3.9 0.9-7.0 % Basophils Percent Auto 0.8 0.2-2.0 % Immature Granulocytes Pct Auto 0.2 0.0-0.5 % Neutrophils Absolute Auto 3.0 1.4-6.5 10 3/uL Lymphocytes Absolute Auto 1.1 1.2-3.8 10 3/uL Monocytes Absolute Auto 0.5 0.3-0.8 10 3/uL Eosinophils Absolute Auto 0.2 0.0-0.7 10 3/uL Basophils Absolute Auto 0.0 0.0-0.1 10 3/uL Immature Granulocytes Abs Auto 0.01 0.00-0.03 10 3/uL Performing Lab: see note ML - [facility] LB Reason For Referral No Information Medications Medication SIG (Take, Route, Frequency, Duration) Notes Start Date End Date Status Albuterol Sulfate (2.5 MG/3ML) 0.083% 3 mL as needed Inhalation every 6 hrs 04/03/2024 Active Bumetanide 1 MG 1 tablet Orally twic e daily for 30 days 11/27/2024 Active Vitamin D (Ergocalciferol) 1.25 MG (04954 UT) 1 capsule Orally daily Active Walker with Wheels -- Use walker daily t o safely complete ADLs- DX I21.6 and M62.81 for 365 days 01/05/2024 Active Atorvastatin Calcium 80 MG 1 tablet Oral ly Once a day Active Amiodarone HCl 200 MG 1 tablet Orally tw ice daily 04/03/2024 Active Spironolactone 25 MG 1 tablet Orally onc e daily 04/03/2024 Active Ferrous Sulfate 325 (65 Fe) MG 1 tablet Orally daily for 30 days 12/19/2024 Active Carvedilol 3.125 MG TAKE 1 TABLET BY VERNA TWICE A DAY Oral for 30 Days [...] Problem Status W/U Status Risk Notes Problem 883729743 Paroxysmal atria l fibrillation (I48.0) Active confirmed Problem 748510268 Acute on chronic systolic (congestive) heart failure (I50.23) Active confirmed Problem 54488757 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 Problem Hypertension (72075437) Hypertension (I10) Active confirmed Problem Hypertension (37267754) HTN (hypertension) (I10) Active confirmed Problem Dementia (39017977) Dementia (F03.90) Active co nfirmed Problem 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 (907124910) 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) Active confirmed Problem hypercholesterolemia (disorder) (65885546) Hypercholesteremia (E78.00) Active confirmed Problem 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) Active confirmed Problem Myocardial infarctio n (33102079) Myocardial infarction (I21.9) Active confirmed Vital Signs Temperature 97.7 degrees Fahrenheit 02/23/2024 Blood pressure diastolic 56 mm Hg 08/20/2024 Height 72 in 08/20/2024 Blood pressure systolic 98 mm Hg 08/20/2024 Weight 202.0 lbs 08/20/2024 BMI 27.39 kg/m2 08/20/2024 Encounters Encounter Location Date Provider Diagnosis [facility] [address] [place] [address] 01/04/2024 Mere Gerber [facility] [address] [place] [address] 01/05/2024 Mere Gerber [facility] [address] [place] [address] 02/23/2024 Mere Gerber HTN (hypertension) I 10 [facility] [address] [place] [address] 04/03/[address] [facility] [address] [place] [address] 04/30/2024 Layton Oconnell Acute on chronic sys tolic (congestive) heart failure I50.23 [facility] [address] [place] [address] 05/16/2024 Mere Gerber [address] [address] 07/01/2024 Mere Gerber [facility] [address] [place] [address] 11/25/2024 Mere Gerber Edema R60.[address] [address] 12/08/2024 [address]ton Hoy [address] [address] 12/18/2024 Layton Oconnell Intermittent claudic ation of lower extremity due to atherosclerosis I70.[address] [address] 02/23/2024 Mere Gerber Cough R05.9 and Francis a R60.[address] [address] 04/03/2024 Layton Hoy Hypertension I10 ; Hypercholesteremia E78.00 ; Myocardial infarction I21.9 ; HTN (hypertension) I10 ; Acute on chronic systolic (congestive) heart failure I50.23 and Dementia F03.[address] [address] 08/20/2024 Mere Gerber HTN (hypertension) I 10 Assessments Encounter Date Diagnosis (ICD Code) Assessment Notes Treatment Notes Treatment Clinical Notes Section Notes 02/23/2024 Cough (ICD-10 - R05.9) continue monitor [...] - I50.23) 11/25/2024 Edema (ICD-10 - R60.9) 12/18/2024 Intermittent claudication of lower extremity due to atherosclerosis (ICD-10 - I70.219) 04/03/2024 Myocardial infarctio n (ICD-10 - I21.9) 04/03/2024 HTN (hypertension) (ICD-10 - I10) 04/03/2024 Acute on chronic systolic (congestive) heart failure (ICD-10 - I50.23) 04/03/2024 Dementia (ICD-10 - F03.90) Plan Of Treatment Pending Test Test Name Order Date HEMOGLOBIN A1C (GLYCO) 02/23/2024 INSULIN, TOTAL 02/23/2024 LIPID PANEL (CHOL/TRIG/HDL/LDL) 02/23/20 PSA, TOTAL 02/23/2024 US NATACHA DOP LEG SYLVIE 12/18/2024 THYROID PANEL (T4/TSH/FREE T3) 4 Insurance Providers Payer Name Payer Address Payer Phone Subscriber Number Group Number Insured Name Patient Relationship to Insured Coverage Start Date Coverage End Date [employer] D[employer]V PRIMARY MEDICARE [address] [place] [address] [phone] [id number] Justus Loyola Self - patient is the insured Medical (General) History Medical History History ICD Code Myocardial infarction I21.9 Hypertension I10 Hypercholesteremia E78.00 Surgical History Surgery Date(Month/Year) Lithotripsy x2 2024 Cardiac Stent Placement Defibrillator placement Hospitalization History Reason Date(Month/Year) See Above
--- OUTSIDE RECORDS SUMMARY | 2025-01-02 17:20 | XMS_ITS | CCD ---
Author Organization [facility] Care Team Providers Care Computing Machine Operator Name Role Phone JAD MITCHELL Primary Care Physician [phone] Noav Wang Attending Unavailable TABITHA LEUNG Attending Unavailable Nova Wang Referring Unavailable Nova Wang Attending Unavailable Nova Wang Attending Unavailable Nova Wang Referring Unavailable Nova Wang Attending Unavailable Kelvin Langston MD Attending Provider Radha DIRECTOR OF COMMUNICATIONS-PARTNERSHIP MARKETING MANAGER, Mere S Primary Care Provider RADHA, MERE S Primary Care Unavailable ALFRED VALENZUELA Consulting Unavailable RU SCHWARZ Admitting Unavailable RU SCHWARZ Attending Unavailable WILBERTO LOOMIS Consulting Unavailable RADHA, MERE S Referring Unavailable RADHA, MERE S Primary Care Unavailable RADHA, MERE S Referring Unavailable RADHA, MERE S Primary Care Unavailable RADHA, MERE S Referring Unavailable RADHA, MERE S Primary Care Unavailable EKWENNA, KELVIN O Referring Unavailable RADHA, MERE S Primary Care Unavailable RADHA, MERE S Primary Care Unavailable EDER STRONG Attending Unavailable RADHA, MERE S Primary Care Unavailable DARLIN CUELLO Attending Unavailoumar e RADHA, MERE S Primary Care Unavailable EDER STRONG Attending Unavailable RANDOLPH PROCTOR Referring Unavailable RADHA, MERE S Primary Care Unavailable Ekwenna, Kelvin O Admitting Unavailable Ekwenna, Kelvin O Attending Unavailable Ivis Kelvin O Attending Unavailable Ivis, Kelvin O Admitting Unavailable Kelvin Langston MD Attending Provider EKWENNA, OBI Attending Unavailable EKWENNA, OBI Admitting Unavailable EKWENNA, OBI Attending Unavailable EKWENNA, OBI Admitting Unavailable EKWENNA, OBI Attending Unavailable EKWENNA, OBI Admitting Unavailable PRADEEP, ABE Referring Unavailable HERCHER, XANDER Attending Unavailable CORYJAXON Referring Unavailable PRADEEP, ABE Referring Unavailable EKWENNA, OBI Attending Unavailable CORYJAXON Referring Unavailable EVELYNALTAGRACIA Referring Unavailable EKWENNA, OBI Referring Unavailable EKWENNA, OBI Referring Unavailable EKWENNA, OBI Referring Unavailable EKWENNA, OBI Referring Unavailable EKWENNA, OBI Referring Unavailable RYLIESAILAJA Attending Unavailable PRADEEP, ABE Admitting Unavailable EKWENNA, OBI Attending Unavailable CORYJAXON Referring Unavailable CORY, JAXON Referring Unavailable CORY, JAXON Referring Unavailable PRADEEP, ABE Referring Unavailable EKWENNA, OBI Attending Unavailable EVELYNALTAGRACIA Attending Unavailable CORYJAXON Referring Unavailable ESTHELARANDOLPH KNUTSON Attending Unavailable EKWENNA, OBI Referring Unavailable EKWENNA, OBI Referring Unavailable RADIOLOGY, RADIOLOGIST Attending Unavailab RANDOLPH Porter Attending Unavailable RANDOLPH PROCTOR Attending Unavailable RANDOLPH PROCTOR Attending Unavailable RANDOLPH PROCTOR Attending Unavailable LEONID RAMIREZ Attending Unavailable MOUKARBELMICHAEL Attending Unavailable EVELYN, ALTAGRACIA Attending Unavailable DAVIS, MELISSA Referring Unavailable PRADEEP, ABE Referring Unavailable HERCHER, XANDER Referring Unavailable PRADEEP, ABE Referring Unavailable HERCHER, XANDER Referring Unavailable PRADEEP, ABE Referring Unavailable PRADEEP, ABE Referring Unavailable CORY, JAXON Referring Unavailable MOUKARBELMICHAEL Attending Unavailable MOUKANICKELMICHAEL Admitting Unavailable EKWENNA, OBI Attending Unavailable CORYJAXON Referring Unavailable PRADEEP, ABE Referring Unavailable CORY, JAXON Referring Unavailable CORY, JAXON Referring Unavailable EVELYNALTAGRACIA Attending Unavailable PRADEEP, ABE Referring Unavailable HERCHER, XANDER Referring Unavailable Medications Current Medications Medication Drug Class(es) [...] Minutes, Every 6 hours, First dose on 06/29/24 at 0330, For 24 hours, ED to [...] 12 hours or as directed by MD. 07/05/2024 Active Start: 07-05-2024 apply 1 dose [...] Discharge) docusate sodium 50 mg / sennosides, mcfp 8.6 mg oral tablet (1 source) Start: [...] hydrochloride 10 mg oral tablet (4 sources) Z-bufgrz-W-asp artate Receptor Antagonist Start: 06-29-2024 End: 07-04-2024 take 10 mg by mouth twice daily 10 mg, oral, 2 times daily, First dose on Mon06/29/24 at 2100 Start: 06-18-20[address] [facility] every twenty-four hours in the morning memantine [...] Every 6 hours PRN, nausea, Starting on Mon06/29/24 at 0316, ED to IP Admission, Administer over 2-5 minutes. polyethylene glycol 3350 34426 mg powder for oral solution (2 sources) [...] policy for blood product transfusion, Starting on [facility] 06/29/24 at 0543, Initiate prior to blood [...] unspecified] Onset: 4 Chronic Chronic kidney disease (4 sources) Chronic kidney disease, stage 4 (severe); Translations: [Chronic kidney disease, unspecified] Onset: 5 [...] (congestive) and diastolic (congestive) heart failure; Translations: [Acute systolic (congestive) heart failure] Onset: 4 Chronic Coronary atherosclerosis and other heart disease (7 sources) Atherosclerotic heart disease of [place] coronary artery without angina pectoris; 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] Onset: 3 Chronic Coronary atherosclerosis and other heart disease (2 sources) Presence of coronary angioplasty implant and graft; Translations: [Presence of coronary angioplasty implant and graft] Onset: 5 Episodic Crushing injury or internal injury (1 source) [...] sources) Hypokalemia; Translations: [Hypokalemia] Onset: 5 Episodic Hypertension with complications and secondary hypertension (2 sources) Hypertensive heart disease with heart failure; Translations: [Hypertensive heart disease with heart failure] Onset: 4 Chronic Other diseases of kidney and ureters (3 sources) Other specified disorders of kidney and ureter; Translations: [Other specified disorders of kidney and ureter] Onset: 4 Chronic Other gastrointestinal disorders (1 source) Constipation, unspecified; [...] Fall (4 sources) Fall in home 07-04-2024 Genitourinary symptoms and ill-defined conditions (4 sources) Retention of urine; Translations: [Retention of urine, unspecified] Onset: 12-26-2023 Episodic Malaise and fatigue (3 sources) Weakness; Translations: [Weakness] Onset: 06-26-2024 Episodic Mood disorders (2 sources) Mood disorders Onset: 06-29-2024 06-29-2024 Other diseases of veins and lymphatics (2 sources) Venous insufficiency (chronic) (peripheral); Translations: [Venous insufficiency (chronic) (peripheral)] Onset: 04-24-2024 Episodic Residual codes; unclassified (2 sources) Family history of diseases of the blood and blood-forming organs and certain disorders involving the immune mechanism; Translations: [Family history of diseases of the blood and blood-forming organs and certain disorders involving the immune mechanism] Onset: 08-30-2024 Episodic Residual codes; unclassified (2 sources) Pain, unspecified; Translations: [Pain, unspecified] Onset: 06-19-2024 Episodic Unclassified (1 source) Supraventricular tachycardia, unspecified; Translations: [Supraventricular tachycardia, unspecified] Onset: 08-30-2024 Urinary tract infections (3 sources) Acute cystitis without hematuria; Translations: [Urinary tract infection, site not specified] Onset: 06-26-2024 Episodic Results Test Name Value Interpretation Reference Range Facility [facility] 12-19-2024 [facility] HPon 12-19-2024 [facility] NURSNOTEon 12-19-2024 NURSNOTE Normal [facility] HPon 12-09-2024 HP Normal [facility] Orders Onlyon 11-26-2024 Orders Only Normal [facility] Orders Onlyon 11-25-2024 Orders Only Normal [facility] 37on 11-12-2024 37 Normal [facility] Orders Onlyon 11-12-2024 Orders Only Normal [facility] 37on 10-30-2024 37 Normal [facility] Orders Onlyon 10-19-2024 Orders Only [facility] Follow-Upon 10-17-2024 Follow-Up Normal [facility] Orders Onlyon 09-27-2024 Orders Only [facility] ANESon 09-04-2024 ANES Normal [facility] ANES [facility] HISTOLOGY - TISSUE EXAMon LAB AP ADDENDUM 1 09-17-24: Normal [facility] Comment on above: Order Comment: Pre-o p diagnosis:Kidney stone [N20.0] Result Comment: This case was sent to the Urolithiasis Laboratory in [place], [place] for chemical analysis (please see accompanying report). Please see results below:Urolithiasis Results:No nidus observed in the specimenThe stone is composed of: Calcium oxalate monohydrate: 90% Calcium phosphate (Apatite): 10%Addendum electronically signed by Jaxon Acosta MD on 09/18/2024 at 4:41 PM Performed By: #### L [id number] ####[facility] (BEAKER)[address] [place] [address] LAB AP CASE REPORT Normal [facility] Comment on above: Order Comment: Pre-o p diagnosis:Kidney stone [N20.0] Result Comment: Surg ical Pathology Case: [id number] Provider: Tino Langston MD Collected: 09/04/2024 1108Ordering Location: [facility] Main Operating Room Received: 09/04/2024 1305Pathologist: JERONIMO Morenopecimen: Kidney, KIDNEY STONE FOR ANALYSIS Performed By: #### L [id number] ####[facility] ([facility])[address] [place] [address] LAB AP CLINICAL INFORMATION [facility] Comment on above: Order Comment: Pre-o p diagnosis:Kidney stone [N20.0] Result Comment: Pre- op diagnosis:Kidney stone [N20.0] Performed By: #### L [id number] ####[facility] ([facility])[address] [place] [address] LAB AP GROSS DESCRIPTION A. Kidney. [facility] Comment on above: Order Comment: Pre-o p diagnosis:Kidney stone [N20.0] Result Comment: The specimen is received fresh labeled Edward Shiets and kidney stone for analysis. It consists of a 0.3 x 0.2 x 0.1 cm yellow-brown, firm, roughened stone. The specimen is for gross examination only and is to be sent to the Urolithiasis lab in [place], [place] for chemical analysis.Rhiannon Mercado, Pathologists' Cath Lab Technologist studentTabitha Aggarwal, Pathologists' Cath Lab Technologist Student Performed By: #### L [id number] ####[facility] ([facility])[address] [place] [address] LAB AP MICROSCOPIC DESCRIPTION Gross examination only. [facility] Comment on above: Order Comment: Pre-o p diagnosis:Kidney stone [N20.0] Performed By: #### L [id number] ####[facility] ([facility])[address] [place] [address] LAB AP REPORT FINAL DIAGNOSIS NARRATIVE [facility] Comment on above: Order Comment: Pre-o p diagnosis:Kidney stone [N20.0] Result Comment: cherri Forman for analysis: - Gross examination consistent with renal calculus. - Specimen forwarded to reference laboratory for chemical analysis. Performed By: #### L [id number] ####[facility] ([facility])[address] [place] [address] HPon 09-04-2024 HP Normal [facility] OPNOTEon 09-04-2024 OPNOTE Normal [facility] POCT GLUCOSE METER UNSOLICIT ED RESULTSon 09-04-2024 Glucose [Mass/Vol] 80 mg/dL Normal 70-105 [facility] Comment on above: Order Comment: Waive d Testing in the ED is performed under the ED CLIA certificate #[id number]. Result Comment: jhag eman Performed By: #### L [id number] ####[facility] ([facility])[address] [place] [address] APTTon 08-30-2024 ACTIVATED PARTIAL THROMBOPLASTIN TIME IN PPP BY COAGULATION ASSAY 30.3 Seconds Normal 25.0-35.0 [facility] Comment on above: Result Comment: Clin ical significance of the APTT is questionable in the presence of heparin. Performed By: #### L [id number] ####[facility] ([facility])[address] [place] [address] CBC WITH AUTO DIFFERENTIALon 08-30-2024 Basophils (Bld) [#/Vol] 0.06 10*3/uL Normal 0.00-0.20 [facility] Comment on above: Performed By: #### L [id number] ####[facility] [place] [address] Basophils/100 WBC (Bld) 1.0 % Normal 0.0-1.0 [facility] Comment on above: Performed By: #### L [id number] ####[facility] [place] [address] Eosinophils (Bld) [#/Vol] 0.24 10*3/uL Normal 0.00-0.5 0 [facility] Comment on above: Performed By: #### L [id number] ####[facility] [place] [address] Eosinophils/100 WBC (Bld) 3.8 % Normal 0.0-6.0 [facility] Comment on above: Performed By: #### L [id number] ####[facility] [place] [address] Erythrocyte distribution width (RBC) [Ratio] 17.0 % High 11.5-15.0 [facility] Comment on above: Performed By: #### L [id number] ####[facility] [place] [address] ERYTHROCYTE MEAN CORPUSCULAR HEMOGLOBIN CONCENTRATION (G/DL) BY AUTOMATED 31.2 g/dL Low 32.0-35.0 [facility] Comment on above: Performed By: #### L [id number] ####[facility] ([facility])[address] [place] [address] Hematocrit (Bld) [Volume fraction] 42.6 % Normal 39.0-50.0 [facility] Comment on above: Performed By: #### L [id number] ####[facility] ([facility])[address] [place] [address] Hemoglobin (Bld) [Mass/Vol] 13.3 g/dL Normal 13.0-17.0 [facility] Comment on above: Performed By: #### L [id number] ####[facility] [place] [address] Immature granulocytes (Bld) [#/Vol] 0.02 10*3/uL Normal 0.00-0.20 [facility] Comment on above: Performed By: #### L [id number] ####[facility] [place] [address] Immature granulocytes/100 WBC (Bld) 0.3 % Normal 0.0-1.0 [facility] Comment on above: Performed By: #### L [id number] ####[facility] (BEAKER)[address] [place] [address] Lymphocytes (Bld) [#/Vol] 1.29 10*3/uL Normal 1.20-4.0 0 [facility] Comment on above: Performed By: #### L [id number] ####[facility] (BEAKER)[address] [place] [address] Lymphocytes/100 WBC (Bld) 20.6 % Normal 20.0-45.0 [facility] Comment on above: Performed By: #### L [id number] ####[facility] (BEAKER)[address] [place] [address] MCH (RBC) [Entitic mass] 30.5 pg Normal 27.0-33.0 [facility] Comment on above: Performed By: #### L [id number] ####[facility] (BEAKER)[address] [place] [address] MCV (RBC) [Entitic vol] 97.7 fL Normal 82.0-98.0 U [facility] Comment on above: Performed By: #### L [id number] ####[facility] (BEAKER)[address] [place] [address] Monocytes (Bld) [#/Vol] 0.53 10*3/uL Normal 0.10-1.00 [facility] Comment on above: Performed By: #### L [id number] ####[facility] (BEAKER)[address] [place] [address] Monocytes/100 WBC (Bld) 8.5 % Normal 5.0-12.0 [facility] Comment on above: Performed By: #### L [id number] ####[facility] (BEAKER)[address] [place] [address] Neutrophils (Bld) [#/Vol] 4.12 10*3/uL Normal 1.60-7.6 0 [facility] Comment on above: Performed By: #### L [id number] ####[facility] (BEAKER)[address] [place] [address] Neutrophils/100 WBC (Bld) 65.8 % Normal 40.0-72.0 [facility] Comment on above: Performed By: #### L [id number] ####[facility] (BEAKER)[address] [place] [address] NRBC (PER 100 WBCS) BY AUTOMATED COUNT 0.0 % Normal 0 [facility] Comment on above: Performed By: #### L [id number] ####[facility] ([facility])[address] [place] [address] PLATELETS (10*3/UL) IN BLOOD AUTOMATED COUNT 189 10*3/uL Normal 150-400 [facility] Comment on above: Performed By: #### L [id number] ####[facility] ([facility])[address] [place] [address] RBC (Bld) [#/Vol] 4.36 10*6/uL Normal 4.20-5.70 [facility] Comment on above: Performed By: #### L [id number] ####[facility] ([facility])[address] [place] [address] WBC (Bld) [#/Vol] 6.26 10*3/uL Normal 4.00-10.60 [facility] Comment on above: Performed By: #### L [id number] ####[facility] ([facility])[address] [place] [address] HPon 08-30-2024 HP Normal [facility] Labon 08-30-2024 Lab Normal [facility] PROTIME-INRon 08-30-2024 INR IN PPP BY COAGULATION ASSAY 1.15 High 0.90-1.10 [facility] Comment on above: Result Comment: ACCC P [...] CHEST 1995;108:231S-246S. Performed By: #### L [id number] ####[facility] ([facility])[address] [place] [address] PROTHROMBIN TIME (PT) IN PPP BY COAGULATION ASSAY 14.7 Seconds Normal 12.3-14.8 [facility] Comment on above: Performed By: #### L [id number] ####[facility] ([facility])[address] [place] [address] Pre-Admission Testingon 08-13 Pre-Admission Testing Normal [facility] T4, FREEon 08-30-2024 THYROXINE (T4) FREE (NG/DL) IN SER/PLAS 1.24 ng/dL Normal 0.71-1.85 [facility] Comment on above: Performed By: #### L [id number] ####[facility] ([facility])[address] [place] [address] TSHon 08-30-2024 THYROTROPIN (MIU/L) IN SER/PLAS BY DETECTION LIMIT <= 0.05 MIU/L 2.01 mIU/L Normal 0.34-5.60 [facility] Comment on above: Performed By: #### L [id number] ####[facility] ([facility])[address] [place] [address] Urine Cultureon 08-29-2024 Bacteria identified Cx Nom (U) <9,000 colonies/ml mixed bacterial skin contaminants 2 Days PERFORMED BY: [facility] [address] [place] [address] PATHOLOGIST MANAGER CONTACT MARTINE BAIN M.D. Normal [facility] Comment on above: Performed By: #### C UU #### [facility] [address] [place] [address] [facility] 36on 08-02-2024 36 Called POA ( son ) Patrice to reschedule sx from 08/13 - no answer , lvm for him to call back in office. [facility] 36on 08-01-2024 36 Pt is scheduled surgery for 08/13/24 and needs to change the date. Please advise and call patient's son with new date. [facility] Follow-Upon 07-19-2024 Follow-Up [facility] CBC AND AUTO DIFFon 07-09-19 ABSOLUTE BASOPHIL 0.1 X10E9/L Normal 0.0-0.2 [facility] Comment on above: Performed By: #### P INR, 56489-4 #### [facility] ([id number]) [address] [place] [address] #### CBCA, CMP #### [facility] ([id number]) [address], [address] [place] [address] ABSOLUTE NEUTROPHIL 5.3 X10E9/L Normal 1.5-6.6 [facility] Comment on above: Performed By: #### P INR, 66609-4 #### [facility] ([id number]) [address] [place] [address] #### CBCA, CMP #### [facility] ([id number]) [address] [place] [address] Basophils/100 WBC (Bld) 0.7 % Normal [facility] Comment on above: Performed By: #### P INR, 86553-6 #### [facility] ([id number]) [address] [place] [address] #### CBCA, CMP #### [facility] ([id number]) [address] [place] [address] Eosinophils (Bld) [#/Vol] 0.1 10*3/uL Normal 0.0-0.4 [facility] Comment on above: Performed By: #### P INR, 33637-8 #### [facility] ([id number]) [address] [place] [address] #### CBCA, CMP #### [facility] ([id number]) [address], [address] [place] [address] Eosinophils/100 WBC (Bld) 1.8 % Normal [facility] Comment on above: Performed By: #### P INR, 96165-5 #### [facility] ([id number]) [address] [place] [address] #### CBCA, CMP #### [facility] ([id number]) [address], [address] [place] [address] Erythrocyte distribution width (RBC) [Ratio] 15.3 % High 11.5-15.0 [facility] Comment on above: Performed By: #### P INR, 95858-1 #### [facility] ([id number]) [address] [place] [address] #### CBCA, CMP #### [facility] ([id number]) [address], [address] [place] [address] Hematocrit (Bld) [Volume fraction] 23.8 % Low 39-49 [facility] Comment on above: Performed By: #### P INR, 64525-6 #### [facility] ([id number]) [address] [place] [address] #### CBCA, CMP #### [facility] ([id number]) [address], [address] [place] [address] Hemoglobin (Bld) [Mass/Vol] 8.1 g/dL Low 13.0-17.0 [facility] Comment on above: Performed By: #### P INR, 49506-2 #### [facility] ([id number]) [address] [place] [address] #### CBCA, CMP #### [facility] ([id number]) [address], [address] [place] [address] Lymphocytes (Bld) [#/Vol] 1.2 10*3/uL Normal 1.0-3.5 [facility] Comment on above: Performed By: #### P INR, 20597-1 #### [facility] ([id number]) [address] [place] [address] #### CBCA, CMP #### [facility] ([id number]) [address] [place] [address] Lymphocytes/100 WBC (Bld) 16.3 % Normal [facility] Comment on above: Performed By: #### P INR, 33772-3 #### [facility] ([id number]) [address] [place] [address] #### CBCA, CMP #### [facility] ([id number]) [address] [place] [address] MCH (RBC) [Entitic mass] 31.8 pg Normal 27-34 [facility] Comment on above: Performed By: #### P INR, 15943-2 #### [facility] ([id number]) [address] [place] [address] #### CBCA, CMP #### [facility] ([id number]) [address] [place] [address] MCHC (RBC) [Mass/Vol] 34.1 g/dL Normal 32-[address] [facility] Comment on above: Performed By: #### P INR, 71125-8 #### [facility] ([id number]) [address] [place] [address] #### CBCA, CMP #### [facility] [facility] ([id number]) [address] [place] [address] MCV (RBC) [Entitic vol] 93 fL Normal 80-100 [facility] Comment on above: Performed By: #### P INR, 94318-6 #### [facility] ([id number]) [address] [place] [address] 21388 #### CBCA, CMP #### [facility] ([id number]) [address] [address] Monocytes (Bld) [#/Vol] 0.5 10*3/uL Normal 0-0.9 [facility] Comment on above: Performed By: #### P INR, 63365-3 #### [facility] ([id number]) [address] [place] [address] 29833 #### CBCA, CMP #### [facility] ([id number]) [address] [place] [address] Monocytes/100 WBC (Bld) 7.0 % Normal [facility] Comment on above: Performed By: #### P INR, 62247-1 #### [facility] ([id number]) [address] [place] [address] 91362 #### CBCA, CMP #### [facility] ([id number]) [address] [facility], [address] [place] [address] Neutrophils/100 WBC (Bld) 74.2 % Normal [facility] Comment on above: Performed By: #### P INR, 89141-8 #### [facility] ([id number]) [address] [place] [address] 55070 #### CBCA, CMP #### [facility] ([id number]) [address] [place] [address] Platelet mean volume (Bld) [Entitic vol] 8.7 fL Normal 7-12 [facility] Comment on above: Performed By: #### P INR, 28699-9 #### [facility] ([id number]) [address] [place] [address] 48037 #### CBCA, CMP #### [facility] ([id number]) [address], [address] [place] [address] Platelets (Bld) [#/Vol] 284 10*3/uL Normal 150-450 [facility] Comment on above: Performed By: #### P INR, 51706-0 #### [facility] ([id number]) [address] [place] [address] 28538 #### CBCA, CMP #### [facility] ([id number]) [address] [place] [address] RBC COUNT 2.55 X10E12/L Low 4.10-5.70 [facility] Comment on above: Performed By: #### P INR, 27057-6 #### [facility] ([id number]) [address] [place] [address] 30111 #### CBCA, CMP #### [facility] ([id number]) [address] [place] [address] WBC (Bld) [#/Vol] 7.2 10*3/uL Normal 4.0-11.0 [facility] Comment on above: Performed By: #### P INR, 95374-0 #### [facility] ([id number]) [address] [place] [address] 35511 #### CBCA, CMP #### [facility] ([id number]) [address], [address] [place] [address] COMPREHENSIVE METABOLIC PANE Larry 07-09-2024 Albumin [Mass/Vol] 2.6 g/dL Low 3.2-5.3 [facility] Comment on above: Performed By: #### P INR, 24467-5 #### [facility] ([id number]) [address] [place] [address] 38673 #### CBCA, CMP #### [facility] ([id number]) [address] [address] [place] [address] ALP [Catalytic activity/Vol] 73 U/L Normal 39-130 [facility] Comment on above: Performed By: #### P INR, 83743-2 #### [facility] ([id number]) [address] [place] [address] 99952 #### CBCA, CMP #### [facility] ([id number]) [address] [facility] [address] [place] [address] ALT [Catalytic activity/Vol] 37 U/L Normal 0-40 [facility] Comment on above: Performed By: #### P INR, 90750-9 #### [facility] ([id number]) [address] [place] [address] 38815 #### CBCA, CMP #### [facility] ([id number]) [address], [address] [place] [address] Anion gap [Moles/Vol] 6 mmol/L Normal 5-[address] [facility] Comment on above: Performed By: #### P INR, 84194-7 #### [facility] ([id number]) [address] [place] [address] 42083 #### CBCA, CMP #### [facility] ([id number]) [address] [facility] [place] [address] AST [Catalytic activity/Vol] 58 U/L High 0-41 [facility] Comment on above: Performed By: #### P INR, 89906-1 #### [facility] ([id number]) [address] [place] [address] 30055 #### CBCA, CMP #### [facility] ([id number]) [address] [place] [address] Bilirubin [Mass/Vol] 1.0 mg/dL Normal 0.3-1.2 [facility] Comment on above: Performed By: #### P INR, 12228-3 #### [facility] ([id number]) [address] [place] [address] 27107 #### CBCA, CMP #### [facility] ([id number]) [address] [place] [address] Calcium [Mass/Vol] 8.5 mg/dL Normal 8.5-10.5 [facility] Comment on above: Performed By: #### P INR, 53092-4 #### [facility] ([id number]) [address] [place] [address] 12019 #### CBCA, CMP #### [facility] ([id number]) [address] [place] [address] Chloride [Moles/Vol] 106 mmol/L Normal 98-109 [facility] Comment on above: Performed By: #### P INR, 42983-9 #### [facility] ([id number]) [address] [place] [address] 27484 #### CBCA, CMP #### [facility] ([id number]) [address] [place] [address] CO2 [Moles/Vol] 26 mmol/L Normal 22-32 [facility] Comment on above: Performed By: #### P INR, 85678-5 #### [facility] ([id number]) [address] [place] [address] 56588 #### CBCA, CMP #### [facility] ([id number]) [address] [place] [address] Creatinine [Mass/Vol] 1.72 mg/dL High 0.70-1.20 [facility] Comment on above: Result Comment: METH OD TRACEABLE TO IDMS STANDARD Performed By: #### P INR, 71687-4 #### [facility] ([id number]) [address] [place] [address] 06507 #### CBCA, CMP #### [facility] ([id number]) [address], [address] [place] [address] GFR/1.73 sq M.predicted among non-blacks MDRD (S/P/Bld) [Vol rate/Area] 40 mL/min/{1.73_m2} Low >59 Pr [facility] Comment on above: Result Comment: Reported eGFR is based on the CKD-EPI 2020 equation that does not use a race coefficient. Performed By: #### P INR, 58994-3 #### [facility] ([id number]) [address] [place] [address] 15318 #### CBCA, CMP #### [facility] ([id number]) [address], [address] [place] [address] Glucose [Mass/Vol] 97 mg/dL Normal 65-99 [facility] Comment on above: Performed By: #### P INR, 84238-1 #### [facility] ([id number]) [address] [place] [address] 92148 #### CBCA, CMP #### [facility] ([id number]) [address], [address] [place] [address] Potassium [Moles/Vol] 4.0 mmol/L Normal 3.5-5.[address] [facility] Comment on above: Performed By: #### P INR, 88371-8 #### [facility] ([id number]) [address] [place] [address] 46069 #### CBCA, CMP #### [facility] ([id number]) [address] [place] [address] Protein [Mass/Vol] 6.4 g/dL Normal 6.0-8.0 [facility] Comment on above: Performed By: #### P INR, 60870-7 #### [facility] ([id number]) [address] [place] [address] 55766 #### CBCA, CMP #### [facility] ([id number]) [address], [address] [place] [address] Sodium [Moles/Vol] 138 mmol/L Normal 134-146 [facility] Comment on above: Performed By: #### P INR, 12286-2 #### [facility] ([id number]) [address] [place] [address] 79626 #### CBCA, CMP #### [facility] ([id number]) [address], [address] [place] [address] Urea nitrogen [Mass/Vol] 30 mg/dL High 5-27 [facility] Comment on above: Performed By: #### P INR, 65552-5 #### [facility] ([id number]) [address] [place] [address] 21306 #### CBCA, CMP #### [facility] ([id number]) [address], [address] [place] [address] CT ABDOMEN AND PELVIS W CONT on [...] Cobb MD on 07/09/2024 6:35 PM Normal [facility] LIPASEon 07-09-2024 Lipase [Catalytic activity/Vol] 32 U/L Normal 17-40 [facility] Comment on above: Performed By: #### P INR, 76166-3 #### [facility] ([id number]) [address] [place] [address] 29267 #### CBCA, CMP #### [facility] ([id number]) [address], [address] [place] [address] Lactate (P rosanne) [Moles/Vol]o n 07-09-2024 LACTATE W/REFLEX 1.2 mmol/L Normal 0.4-2.0 [facility] Comment on above: Result Comment: Result did not trigger repeat Lactate, re-order if needed. Performed By: #### P INR, 63703-4 #### [facility] ([id number]) [address] [place] [address] 11560 #### CBCA, CMP #### [facility] ([id number]) [address] [place] [address] MAGNESIUMon 07-09-2024 Magnesium [Mass/Vol] 2.2 mg/dL Normal 1.8-2.6 [facility] Comment on above: Performed By: #### P INR, 51122-9 #### [facility] ([id number]) [address] [place] [address] 35094 #### CBCA, CMP #### [facility] ([id number]) [address], [address] [place] [address] URINE CULTUREon 07-09-2024 Bacteria identified Cx Nom (U) CULTURE RESULTS NO GROWTH AT <1000 CFU/mL Normal [facility] Comment on above: Performed By: #### P INR, 50083-3 #### [facility] ([id number]) [address] [place] [address] 22417 #### CBCA, CMP #### [facility] ([id number]) [address], [address] [place] [address] URN MACROSCOPIC NURon 2024 BILIRUBIN DIANE Small Abnormal NEG [facility] Comment on above: Performed By: #### P INR, 37920-4 #### [facility] ([id number]) [address] [place] [address] 76513 #### CBCA, CMP #### [facility] ([id number]) [address] [place] [address] BLOOD/HGB DIANE Large Abnormal NEG [facility] Comment on above: Performed By: #### P INR, 82660-5 #### [facility] ([id number]) [address] [place] [address] 78636 #### CBCA, CMP #### [facility] ([id number]) [address] [place] [address] GLUCOSE DIANE >=1000 Abnormal NEG [facility] Comment on above: Performed By: #### P INR, 02477-9 #### [facility] ([id number]) [address] [place] [address] 06464 #### CBCA, CMP #### [facility] ([id number]) [address] [place] [address] KETONES DIANE Negative Normal NEG [facility] Comment on above: Performed By: #### P INR, 44431-5 #### [facility] ([id number]) [address] [place] [address] 36313 #### CBCA, CMP #### [facility] ([id number]) [address] [place] [address] LEUKOCYTE ESTERASE DIANE Large Abnormal NEG Pr [facility] Comment on above: Performed By: #### P INR, 44897-0 #### [facility] ([id number]) [address] [place] [address] 34933 #### CBCA, CMP #### [facility] ([id number]) [address], [address] [place] [address] NITRITE DIANE Negative Normal NEG [facility] Comment on above: Performed By: #### P INR, 47314-0 #### [facility] ([id number]) [address] [place] [address] 89638 #### CBCA, CMP #### [facility] ([id number]) [address], [address] [place] [address] PH DIANE 7.0 Normal 5.0-8.5 [facility] Comment on above: Performed By: #### P INR, 27367-6 #### [facility] ([id number]) [address] [place] [address] 72533 #### CBCA, CMP #### [facility] ([id number]) [address], [address] [place] [address] PROTEIN DIANE >=300 Abnormal NEG [facility] Comment on above: Performed By: #### P INR, 73297-3 #### [facility] ([id number]) [address] [place] [address] 63020 #### CBCA, CMP #### [facility] ([id number]) [address], [address] [place] [address] SPECIFIC GRAVITY DIANE 1.015 Normal 1.003-1 .03 5 [facility] Comment on above: Performed By: #### P INR, 29882-3 #### [facility] ([id number]) [address] [place] [address] 42961 #### CBCA, CMP #### [facility] ([id number]) [address], [address] [place] [address] UROBILINOGEN DIANE >=8.0 Normal <1.1 [facility] Comment on above: Performed By: #### P INR, 79813-8 #### [facility] ([id number]) [address] [place] [address] 21710 #### CBCA, CMP #### [facility] ([id number]) [address] [address] [place] [address] CBC AND AUTO DIFFon 07-05-19 25 ABSOLUTE BASOPHIL 0.1 X10E9/L Normal 0.0-0.2 [facility] Comment on above: Performed By: #### P INR, 45736-3 #### [facility] ([id number]) [address] [place] [address] 28222 #### CBCA, CMP #### [facility] ([id number]) [address] [facility] [facility] [address] [place] [address] ABSOLUTE NEUTROPHIL 8.8 X10E9/L High 1.5-6.6 [facility] Comment on above: Performed By: #### P INR, 74806-0 #### [facility] ([id number]) [address] [place] [address] 16574 #### CBCA, CMP #### [facility] ([id number]) [address] [place] [address] Basophils/100 WBC (Bld) 0.5 % Normal [facility] Comment on above: Performed By: #### P INR, 98923-3 #### [facility] ([id number]) [address] [place] [address] 90743 #### CBCA, CMP #### [facility] ([id number]) [address] [facility] [address] [place] [address] Eosinophils (Bld) [#/Vol] 0.1 10*3/uL Normal 0.0-0.4 [facility] Comment on above: Performed By: #### P INR, 67280-0 #### [facility] ([id number]) [address] [place] [address] 68909 #### CBCA, CMP #### [facility] ([id number]) [address] [place] [address] Eosinophils/100 WBC (Bld) 1.1 % Normal [facility] Comment on above: Performed By: #### P INR, 15240-8 #### [facility] ([id number]) [address] [place] [address] 66220 #### CBCA, CMP #### [facility] ([id number]) [address] [place] [address] Erythrocyte distribution width (RBC) [Ratio] 15.2 % High 11.5-15.0 [facility] Comment on above: Performed By: #### P INR, 68826-5 #### [facility] ([id number]) [address] [place] [address] 99664 #### CBCA, CMP #### [facility] ([id number]) [address] [place] [address] Hematocrit (Bld) [Volume fraction] 32.7 % Low 39-49 [facility] Comment on above: Performed By: #### P INR, 37092-6 #### [facility] ([id number]) [address] [place] [address] 37711 #### CBCA, CMP #### [facility] ([id number]) [address] [place] [address] Hemoglobin (Bld) [Mass/Vol] 10.9 g/dL Low 13.0-17.0 [facility] Comment on above: Performed By: #### P INR, 34365-8 #### [facility] ([id number]) [address] [place] [address] 73090 #### CBCA, CMP #### [facility] ([id number]) [address] [place] [address] Lymphocytes (Bld) [#/Vol] 1.0 10*3/uL Normal 1.0-3.5 [facility] Comment on above: Performed By: #### P INR, 77750-4 #### [facility] ([id number]) [address] [place] [address] 97207 #### CBCA, CMP #### [facility] ([id number]) [address] [place] [address] Lymphocytes/100 WBC (Bld) 9.0 % Normal [facility] Comment on above: Performed By: #### P INR, 12610-2 #### [facility] ([id number]) [address] [place] [address] 59301 #### CBCA, CMP #### [facility] ([id number]) [address] [place] [address] MCH (RBC) [Entitic mass] 31.0 pg Normal 27-34 [facility] Comment on above: Performed By: #### P INR, 88282-0 #### [facility] ([id number]) [address] [place] [address] 75344 #### CBCA, CMP #### [facility] ([id number]) [address] [place] [address] MCHC (RBC) [Mass/Vol] 33.2 g/dL Normal 32-[address] [facility] Comment on above: Performed By: #### P INR, 82968-6 #### [facility] ([id number]) [address] [place] [address] 42671 #### CBCA, CMP #### [facility] ([id number]) [address], [address] [place] [address] MCV (RBC) [Entitic vol] 93 fL Normal 80-100 [facility] Comment on above: Performed By: #### P INR, 06619-9 #### [facility] ([id number]) [address] [place] [address] 01038 #### CBCA, CMP #### [facility] ([id number]) [address] [place] [address] Monocytes (Bld) [#/Vol] 1.0 10*3/uL High 0-0.9 [facility] Comment on above: Performed By: #### P INR, 02152-9 #### [facility] ([id number]) [address] [place] [address] 53123 #### CBCA, CMP #### [facility] ([id number]) [address], [address] [place] [address] Monocytes/100 WBC (Bld) 8.9 % Normal [facility] Comment on above: Performed By: #### P INR, 47844-1 #### [facility] ([id number]) [address] [place] [address] 58145 #### CBCA, CMP #### [facility] ([id number]) [address] [place] [address] Neutrophils/100 WBC (Bld) 80.5 % Normal [facility] Comment on above: Performed By: #### P INR, 05610-8 #### [facility] ([id number]) [address] [place] [address] 87307 #### CBCA, CMP #### [facility] ([id number]) [address] [place] [address] Platelet mean volume (Bld) [Entitic vol] 8.6 fL Normal 7-12 [facility] Comment on above: Performed By: #### P INR, 68832-5 #### [facility] ([id number]) [address] [place] [address] 26901 #### CBCA, CMP #### [facility] ([id number]) [address] [place] [address] Platelets (Bld) [#/Vol] 275 10*3/uL Normal 150-450 [facility] Comment on above: Performed By: #### P INR, 97749-7 #### [facility] ([id number]) [address] [place] [address] 91603 #### CBCA, CMP #### [facility] ([id number]) [address] [place] [address] RBC COUNT 3.50 X10E12/L Low 4.10-5.70 [facility] Comment on above: Performed By: #### P INR, 72055-0 #### [facility] ([id number]) [address] [place] [address] 97781 #### CBCA, CMP #### [facility] ([id number]) [address] [place] [address] WBC (Bld) [#/Vol] 10.9 10*3/uL Normal 4.0-11.0 [facility] Comment on above: Performed By: #### P INR, 80692-1 #### [facility] ([id number]) [address] [place] [address] 33348 #### CBCA, CMP #### [facility] ([id number]) [address] [place] [address] COMPREHENSIVE METABOLIC PANE Larry 07-05-2024 Albumin [Mass/Vol] 2.6 g/dL Low 3.2-5.3 [facility] Comment on above: Performed By: #### P INR, 60046-2 #### [facility] ([id number]) [address] [place] [address] 41192 #### CBCA, CMP #### [facility] ([id number]) [address] [place] [address] ALP [Catalytic activity/Vol] 71 U/L Normal 39-130 [facility] Comment on above: Performed By: #### P INR, 69104-6 #### [facility] ([id number]) [address] [place] [address] #### CBCA, CMP #### [facility] ([id number]) [address], [address] [place] [address] ALT [Catalytic activity/Vol] 14 U/L Normal 0-40 [facility] Comment on above: Performed By: #### P INR, 98893-7 #### [facility] ([id number]) [address] [place] [address] #### CBCA, CMP #### [facility] ([id number]) [address], [address] [place] [address] Anion gap [Moles/Vol] 5 mmol/L Normal 5-[address] [facility] Comment on above: Performed By: #### P INR, 74080-5 #### [facility] ([id number]) [address] [place] [address] #### CBCA, CMP #### [facility] ([id number]) [address] [place] [address] AST [Catalytic activity/Vol] 29 U/L Normal 0-41 [facility] Comment on above: Performed By: #### P INR, 86366-1 #### [facility] ([id number]) [address] [place] [address] #### CBCA, CMP #### [facility] ([id number]) [address], [address] [place] [address] Bilirubin [Mass/Vol] 1.3 mg/dL High 0.3-1.2 [facility] Comment on above: Performed By: #### P INR, 30353-2 #### [facility] ([id number]) [address] [place] [address] #### CBCA, CMP #### [facility] ([id number]) [address] [facility] [address] [place] [address] Calcium [Mass/Vol] 8.6 mg/dL Normal 8.5-10.5 [facility] Comment on above: Performed By: #### P INR, 54327-6 #### [facility] ([id number]) [address] [place] [address] 120[address] #### CBCA, CMP #### [facility] ([id number]) [address] [place] [address] Chloride [Moles/Vol] 105 mmol/L Normal 98-109 [facility] Comment on above: Performed By: #### P INR, 06429-8 #### [facility] ([id number]) [address] [place] [address] #### CBCA, CMP #### [facility] ([id number]) [address] [address] [place] [address] CO2 [Moles/Vol] 28 mmol/L Normal 22-32 [facility] Comment on above: Performed By: #### P INR, 20081-3 #### [facility] ([id number]) [address] [place] [address] #### CBCA, CMP #### [facility] ([id number]) [address] [place] [address] Creatinine [Mass/Vol] 1.24 mg/dL High 0.70-1.[address] [facility] Comment on above: Result Comment: METH OD TRACEABLE TO IDMS STANDARD Performed By: #### P INR, 94976-1 #### [facility] ([id number]) [address] [place] [address] #### CBCA, CMP #### [facility] ([id number]) [address] [place] [address] GFR/1.73 sq M.predicted among non-blacks MDRD (S/P/Bld) [Vol rate/Area] 60 mL/min/{1.73_m2} Normal >59 Pr [facility] Comment on above: Result Comment: Reported eGFR is based on the CKD-EPI 2020 equation that does not use a race coefficient. Performed By: #### P INR, 18399-8 #### [facility] ([id number]) [address] [place] [address] #### CBCA, CMP #### [facility] ([id number]) [address] [place] [address] Glucose [Mass/Vol] 115 mg/dL High 65-99 [facility] Comment on above: Performed By: #### P INR, 52566-3 #### [facility] ([id number]) [address] [place] [address] #### CBCA, CMP #### [facility] ([id number]) [address] [place] [address] Potassium [Moles/Vol] 4.0 mmol/L Normal 3.5-5.[address] [facility] Comment on above: Performed By: #### P INR, 31603-4 #### [facility] ([id number]) [address] [place] [address] #### CBCA, CMP #### [facility] ([id number]) [address] [place] [address] Protein [Mass/Vol] 6.5 g/dL Normal 6.0-8.0 [facility] Comment on above: Performed By: #### P INR, 31902-4 #### [facility] ([id number]) [address] [place] [address] #### CBCA, CMP #### [facility] ([id number]) [address] [place] [address] Sodium [Moles/Vol] 138 mmol/L Normal 134-146 [facility] Comment on above: Performed By: #### P INR, 95303-7 #### [facility] ([id number]) [address] [place] [address]295 #### CBCA, CMP #### [facility] ([id number]) [address] [place] [address] Urea nitrogen [Mass/Vol] 19 mg/dL Normal 5-27 [facility] Comment on above: Performed By: #### P INR, 10977-8 #### [facility] ([id number]) [address] [place] [address] 298[address] #### CBCA, CMP #### [facility] ([id number]) [address] [place] [address] CT ABDOMEN AND PELVIS W CONT on [...] THE CLINICAL SERVICE ON 07/05/2024 6:59 PM [employer] 9 Finalized by Ashley Joyce on 07/05/2024 7:01 PM Normal [facility] Lactate (P rosanne) [Moles/Vol]o n 07-05-2024 LACTATE W/REFLEX 1.5 mmol/L Normal 0.4-2.0 [facility] Comment on above: Result Comment: Result did not trigger repeat Lactate, re-order if needed. Performed By: #### P INR, 05370-3 #### [facility] ([id number]) [address] [place] [address] #### CBCA, CMP #### [facility] ([id number]) [address] [place] [address] PROTIME AND INRon 07-05-2024 INR Coag (PPP) [Relative time] 1.9 {INR} High 0.8-1.1 [facility] Comment on above: Performed By: #### P INR, 78558-6 #### [facility] ([id number]) [address] [place] [address]38 #### CBCA, CMP #### [facility] ([id number]) [address] [place] [address] PT Coag (PPP) [Time] 21.4 s High 9.8-13.2 [facility] Comment on above: Result Comment: NEW REFERENCE RANGE Performed By: #### P INR, 88587-5 #### [facility] ([id number]) [address] [place] [address] #### CBCA, CMP #### [facility] ([id number]) [address] [place] [address] UA (MICROSCOPIC)on 5 R.B.CELLS >100 High 0-5 [facility] Comment on above: Performed By: #### P INR, 43054-1 #### [facility] ([id number]) [address] [place] [address] 24[address] #### CBCA, CMP #### [facility] ([id number]) [address] [place] [address] SQUAMOUS EPITHELIUM 2 /hpf Normal 0-5 [facility] Comment on above: Performed By: #### P INR, 57119-2 #### [facility] ([id number]) [address] [place] [address] #### CBCA, CMP #### [facility] ([id number]) [address] [place] [address] Urinalysis dipstick W Reflex Microscopic panel (U) Results maybe affected due to High RBC count, interpretwith caution. Normal [facility] Comment on above: Performed By: #### P INR, 47519-2 #### [facility] ([id number]) [address] [place] [address] 20899 #### CBCA, CMP #### [facility] ([id number]) [address] [place] [address] W.B.CELLS 3 /hpf Normal 0-5 [facility] Comment on above: Performed By: #### P INR, 19868-4 #### [facility] ([id number]) [address] [place] [address], [place] [address] #### CBCA, CMP #### [facility] ([id number]) [address] [place] [address] BASIC METABOLIC PANLon 07-04 Anion gap [Moles/Vol] 6 mmol/L Normal 5-15 [facility] Comment on above: Performed By: #### C BCA, 5643-2, 1797-8, CMP, 3040-3, 25191-7, PINR, 94072-7 #### [facility] ([id number]) [address] [place] [address] Calcium [Mass/Vol] 8.4 mg/dL Low 8.5-10.[address] [facility] Comment on above: Performed By: #### C BCA, 5643-2, 1797-8, CMP, 3040-3, 38872-6, PINR, 61723-8 #### [facility] ([id number]) [address] [place] [address] Chloride [Moles/Vol] 107 mmol/L Normal 98-109 [facility] Comment on above: Performed By: #### C BCA, 5643-2, 1797-8, CMP, 3040-3, 89516-5, PINR, 39325-3 #### [facility] ([id number]) [address] [place] [address] CO2 [Moles/Vol] 29 mmol/L Normal 22-32 [facility] Comment on above: Performed By: #### C BCA, 5643-2, 1797-8, CMP, 3040-3, 88906-2, PINR, 93792-7 #### [facility] ([id number]) [address] [place] [address] Creatinine [Mass/Vol] 1.06 mg/dL Normal 0.60-1.30 [facility] Comment on above: Result Comment: METH OD TRACEABLE TO IDMS STANDARD Performed By: #### C BCA, 5643-2, 1797-8, CMP, 3040-3, 33479-6, PINR, 49129-0 #### [facility] ([id number]) [address], [facility] [address] [place] [address] GFR/1.73 sq M.predicted among non-blacks MDRD (S/P/Bld) [Vol rate/Area] 72 mL/min/{1.73_m2} Normal >59 Pr [facility] Comment on above: Result Comment: Reported eGFR is based on the CKD-EPI 2020 equation that does not use a race coefficient. Performed By: #### C BCA, 5643-2, 1797-8, CMP, 3040-3, 52144-0, PINR, 61486-2 #### [facility] ([id number]) [address] [place] [address] Glucose [Mass/Vol] 93 mg/dL Normal 65-[address] [facility] Comment on above: Performed By: #### C BCA, 5643-2, 8, CMP, 3040-3, 25288-1, PINR, 93258-4 #### [facility] ([id number]) [address] [place] [address] Potassium [Moles/Vol] 4.0 mmol/L Normal 3.5-5.0 [facility] Comment on above: Performed By: #### C BCA, 5643-2, 1797-8, CMP, 3040-3, 42741-0, PINR, 08478-7 #### [facility] ([id number]) [address] [place] [address] Sodium [Moles/Vol] 142 mmol/L Normal 134-[address] [facility] Comment on above: Performed By: #### C BCA, 5643-2, 1798-8, CMP, 3040-3, 87191-0, PINR, 52268-3 #### [facility] ([id number]) [address] [place] [address] Urea nitrogen [Mass/Vol] 17 mg/dL Normal 5-27 [facility] Comment on above: Performed By: #### C BCA, 5643-2, 1798-8, CMP, 3040-3, 31699-9, PINR, 06273-6 #### [facility] ([id number]) [address] [place] [address] Basic Metabolic Panelon 06-16 Anion gap [Moles/Vol] 6 mmol/L 5 - 15 mmol/L [facility] Calcium [Mass/Vol] 8.4 mg/dL Low 8.5 - 10. 5 mg/dL [facility] Chloride [Moles/Vol] 107 mmol/L 98 - 10 9 mmol/L [facility] CO2 [Moles/Vol] 29 mmol/L 22 - 32 mmol/L [facility] Creatinine [Mass/Vol] 1.06 mg/dL 0.60 - 1.30 mg/dL [facility] Comment on above: METHOD TRACEABLE TO [facility] STANDARD eGFR (CKD-EPI)non-race dependent 72 - PINF [facility] Comment on above: Reported eGFR is based on the CKD-EPI 2020 equation that does not use a race coefficient. Glucose [Mass/Vol] 93 mg/dL 65 - 99 mg/dL [facility] Interpretation and review of laboratory results Abnormal [facility] Potassium [Moles/Vol] 4 mmol/L 3.5 - 5.0 mmol/L [facility] Sodium [Moles/Vol] 142 mmol/L 134 - 146 mmol/L [facility] Urea nitrogen [Mass/Vol] 17 mg/dL 5 - 27 mg/dL [facility] CBC AND AUTO DIFFon 07-04-19 25 ABSOLUTE BASOPHIL 0.1 X10E9/L Normal 0.0-0.[address] [facility] Comment on above: Performed By: #### C BCA, 5643-2, 8-8, CMP, 3040-3, 13815-1, PINR, 17346-5 #### [facility] ([id number]) [address] [place] [address] ABSOLUTE NEUTROPHIL 4.7 X10E9/L Normal 1.5-6.6 [facility] Comment on above: Performed By: #### C BCA, 5643-2, 1797-8, CMP, 3040-3, 47421-5, PINR, 05507-8 #### [facility] ([id number]) [address] [place] [address] Basophils/100 WBC (Bld) 0.8 % Normal [facility] Comment on above: Performed By: #### C BCA, 5643-2, 1797-8, CMP, 3040-3, 27237-6, PINR, 86192-8 #### [facility] ([id number]) [address] [place] [address] Eosinophils (Bld) [#/Vol] 0.1 10*3/uL Normal 0.0-0.4 [facility] Comment on above: Performed By: #### C BCA, 5643-2, 1797-8, CMP, 3040-3, 19684-3, PINR, 52360-7 #### [facility] ([id number]) [address] [place] [address] Eosinophils/100 WBC (Bld) 2.0 % Normal [facility] Comment on above: Performed By: #### C BCA, 5643-2, 1797-8, CMP, 3040-3, 07485-3, PINR, 15731-9 #### [facility] ([id number]) [address] [place] [address] Erythrocyte distribution width (RBC) [Ratio] 15.0 % Normal 11.5-15.0 [facility] Comment on above: Performed By: #### C BCA, 5643-2, 1797-8, CMP, 3040-3, 30997-5, PINR, 18270-7 #### [facility] ([id number]) [address] [place] [address] Hematocrit (Bld) [Volume fraction] 30.5 % Low 39-49 [facility] Comment on above: Performed By: #### C BCA, 5643-2, 1797-8, CMP, 3040-3, 63375-5, PINR, 66462-8 #### [facility] ([id number]) [address] [place] [address] Hemoglobin (Bld) [Mass/Vol] 10.1 g/dL Low 13.0-17.0 [facility] Comment on above: Performed By: #### C BCA, 5643-2, 8, CMP, 3040-3, 65452-9, PINR, 57584-4 #### [facility] ([id number]) [address] [place] [address] Lymphocytes (Bld) [#/Vol] 0.9 10*3/uL Low 1.0-3.5 [facility] Comment on above: Performed By: #### C BCA, 5643-2, 8, CMP, 3040-3, 25670-6, PINR, 37365-8 #### [facility] ([id number]) [address] [place] [address] Lymphocytes/100 WBC (Bld) 14.6 % Normal [facility] Comment on above: Performed By: #### C BCA, 5643-2, 8, CMP, 3040-3, 44101-6, PINR, 30641-1 #### [facility] ([id number]) [address] [place] [address] MCH (RBC) [Entitic mass] 30.8 pg Normal 27-34 [facility] Comment on above: Performed By: #### C BCA, 5643-2, 1797-8, CMP, 3040-3, 74465-2, PINR, 77465-8 #### [facility] ([id number]) [address] [place] [address] MCHC (RBC) [Mass/Vol] 33.0 g/dL Normal 32-36 [facility] Comment on above: Performed By: #### C BCA, 5643-2, 1797-8, CMP, 3040-3, 46759-6, PINR, 68616-0 #### [facility] ([id number]) [address] [place] [address] MCV (RBC) [Entitic vol] 94 fL Normal 80-100 [facility] Comment on above: Performed By: #### C BCA, 5643-2, 8, CMP, 3040-3, 27805-2, PINR, 62565-4 #### [facility] ([id number]) [address] [place] [address] Monocytes (Bld) [#/Vol] 0.6 10*3/uL Normal 0-0.9 [facility] Comment on above: Performed By: #### C BCA, 5643-2, 8, CMP, 3040-3, 21251-2, PINR, 00250-6 #### [facility] ([id number]) [address] [place] [address] Monocytes/100 WBC (Bld) 9.1 % Normal [facility] Comment on above: Performed By: #### C BCA, 5643-2, 1797-8, CMP, 3040-3, 36139-4, PINR, 50511-2 #### [facility] ([id number]) [address] [place] [address] Neutrophils/100 WBC (Bld) 73.5 % Normal [facility] Comment on above: Performed By: #### C BCA, 5643-2, 1797-8, CMP, 3040-3, 89931-7, PINR, 83051-4 #### [facility] ([id number]) [address], [facility] [address] [place] [address] Platelet mean volume (Bld) [Entitic vol] 8.3 fL Normal 7-12 [facility] Comment on above: Performed By: #### C BCA, 5643-2, 8, CMP, 3040-3, 79342-6, PINR, 43311-5 #### [facility] ([id number]) [address], [facility] [address] [place] [address] Platelets (Bld) [#/Vol] 228 10*3/uL Normal 150-450 [facility] Comment on above: Performed By: #### C BCA, 5643-2, 8, CMP, 3040-3, 27313-4, PINR, 95454-5 #### [facility] ([id number]) [address], [facility] [address] [place] [address] RBC COUNT 3.26 X10E12/L Low 4.10-5.70 [facility] Comment on above: Performed By: #### C BCA, 5643-2, 8, CMP, 3040-3, 67816-4, PINR, 09177-0 #### [facility] ([id number]) [address] [facility] [address] [place] [address] WBC (Bld) [#/Vol] 6.4 10*3/uL Normal 4.0-11.[address] [facility] Comment on above: Performed By: #### C BCA, 5643-2, 1797-8, CMP, 3040-3, 49905-6, PINR, 18089-9 #### [facility] ([id number]) [address] [place] [address] CBC auto differentialon 06-16 Basophils (Bld) [#/Vol] 0.1 10*3/uL [facility] Basophils/100 WBC (Bld) 0.8 % [facility] Eosinophils (Bld) [#/Vol] 0.1 10*3/uL [facility] Eosinophils/100 WBC (Bld) 2 % [facility] Erythrocyte distribution width (RBC) [Ratio] 15 % 11.5 - 15.0 % [facility] Hematocrit (Bld) [Volume fraction] 30.5 % Low 39 - 49 % [facility] Hemoglobin (Bld) [Mass/Vol] 10.1 g/dL Low 13.0 - 17.0 g/dL [facility] Interpretation and review of laboratory results Abnormal [facility] Lymphocytes (Bld) [#/Vol] 0.9 10*3/uL Low [facility] Lymphocytes/100 WBC (Bld) 14.6 % [facility] MCH (RBC) [Entitic mass] 30.8 pg 27 - 34 pg [facility] MCHC (RBC) [Mass/Vol] 33 g/dL 32 - 3 6 g/dL [facility] MCV (RBC) [Entitic vol] 94 fL 80 - 100 fL [facility] Monocytes (Bld) [#/Vol] 0.6 10*3/uL [facility] Monocytes/100 WBC (Bld) 9.1 % [facility] Neutrophils (Bld) [#/Vol] 4.7 10*3/uL [facility] Neutrophils/100 WBC (Bld) 73.5 % [facility] Platelet mean volume (Bld) [Entitic vol] 8.3 fL 7 - 12 fL [facility] Platelets (Bld) [#/Vol] 228 10*3/uL [facility] RBC (Bld) [#/Vol] 3.26 10*6/uL Low [facility] WBC corrected for nucl RBC Auto (Bld) [#/Vol] 6.4 [facility] Glucose Glucometer (BldC) [M ass/Vol]on 07-04-2024 Glucose [Mass/Vol] 100 mg/dL High 65 - 99 mg/dL [facility] Interpretation and review of laboratory results Abnormal [facility] Glucose [Mass/Vol] 100 mg/dL High 65-[address] [facility] Glucose [Mass/Vol] 109 mg/dL High 65 - 99 mg/dL [facility] Interpretation and review of laboratory results Abnormal [facility] Glucose [Mass/Vol] 109 mg/dL High 65-[address] [facility] BASIC METABOLIC PANLon 07-03 Anion gap [Moles/Vol] 4 mmol/L Low 5-15 [facility] Comment on above: Performed By: #### C BCA, 5643-2, 1797-8, CMP, 3040-3, 42964-0, PINR, 44797-9 #### [facility] ([id number]) [address] [place] [address] Calcium [Mass/Vol] 8.3 mg/dL Low 8.5-10.[address] [facility] Comment on above: Performed By: #### C BCA, 5643-2, 1797-8, CMP, 3040-3, 54832-3, PINR, 90363-4 #### [facility] ([id number]) [address] [place] [address] Chloride [Moles/Vol] 109 mmol/L Normal 98-109 [facility] Comment on above: Performed By: #### C BCA, 5643-2, 1797-8, CMP, 3040-3, 51152-1, PINR, 47307-2 #### [facility] ([id number]) [address] [place] [address] CO2 [Moles/Vol] 30 mmol/L Normal 22-32 [facility] Comment on above: Performed By: #### C BCA, 5643-2, 1797-8, CMP, 3040-3, 84160-6, PINR, 44989-0 #### [facility] ([id number]) [address] [place] [address] Creatinine [Mass/Vol] 1.05 mg/dL Normal 0.60-1.30 [facility] Comment on above: Result Comment: METH OD TRACEABLE TO IDMS STANDARD Performed By: #### C BCA, 5643-2, 1797-8, CMP, 3040-3, 18445-8, PINR, 26409-8 #### [facility] ([id number]) [address], [address] [address] GFR/1.73 sq M.predicted among non-blacks MDRD (S/P/Bld) [Vol rate/Area] 73 mL/min/{1.73_m2} Normal >59 [facility] Comment on above: Result Comment: Reported eGFR is based on the CKD-EPI 2020 equation that does not use a race coefficient. Performed By: #### C BCA, 5643-2, 1797-8, CMP, 3040-3, 50093-1, PINR, 40325-5 #### [facility] ([id number]) [address] [place] [address] Glucose [Mass/Vol] 116 mg/dL High 65-[address] [facility] Comment on above: Performed By: #### C BCA, 5643-2, 1797-8, CMP, 3040-3, 79758-6, PINR, 51352-0 #### [facility] ([id number]) [address] [place] [address] Potassium [Moles/Vol] 4.2 mmol/L Normal 3.5-5.0 [facility] Comment on above: Performed By: #### C BCA, 5643-2, 1797-8, CMP, 3040-3, 36069-1, PINR, 60363-8 #### [facility] ([id number]) [address] [place] [address] Sodium [Moles/Vol] 143 mmol/L Normal 134-[address] [facility] Comment on above: Performed By: #### C BCA, 5643-2, 1798-8, CMP, 3040-3, 99176-0, PINR, 23009-1 #### [facility] ([id number]) [address] [place] [address] Urea nitrogen [Mass/Vol] 14 mg/dL Normal 5-27 [facility] Comment on above: Performed By: #### C BCA, 5643-2, 1798-8, CMP, 3040-3, 76295-3, PINR, 93244-8 #### [facility] ([id number]) [address] [place] [address] Basic Metabolic Panelon 06-15 Anion gap [Moles/Vol] 4 mmol/L Low 5 - 15 mmol/L [facility] Calcium [Mass/Vol] 8.3 mg/dL Low 8.5 - 10. 5 mg/dL [facility] Chloride [Moles/Vol] 109 mmol/L 98 - 10 9 mmol/L [facility] CO2 [Moles/Vol] 30 mmol/L 22 - 32 mmol/L [facility] Creatinine [Mass/Vol] 1.05 mg/dL 0.60 - 1.30 mg/dL [facility] Comment on above: METHOD TRACEABLE TO IDMS STANDARD eGFR (CKD-EPI)non-race dependent 73 - PINF [facility] Comment on above: Reported eGFR is based on the CKD-EPI 2020 equation that does not use a race coefficient. Glucose [Mass/Vol] 116 mg/dL High 65 - 99 mg/dL [facility] Interpretation and review of laboratory results Abnormal [facility] Potassium [Moles/Vol] 4.2 mmol/L 3.5 - 5.0 mmol/L [facility] Sodium [Moles/Vol] 143 mmol/L 134 - 146 mmol/L [facility] Urea nitrogen [Mass/Vol] 14 mg/dL 5 - 27 mg/dL [facility] CBC AND AUTO DIFFon 07-03-19 25 ABSOLUTE BASOPHIL 0.0 X10E9/L Normal 0.0-0.[address] [facility] Comment on above: Performed By: #### C BCA, 5643-2, 1797-8, CMP, 3040-3, 00131-6, PINR, [id number] #### [facility] ([id number]) [address], [address] [place] [address] ABSOLUTE NEUTROPHIL 5.7 X10E9/L Normal 1.5-6.6 [facility] Comment on above: Performed By: #### C BCA, 5643-2, 1797-8, CMP, 3040-3, 74046-4, PINR, 58787-0 #### [facility] ([id number]) [address], [address] [place] [address] Basophils/100 WBC (Bld) 0.4 % Normal [facility] Comment on above: Performed By: #### C BCA, 5643-2, 8, CMP, 3040-3, 81986-3, PINR, 23268-9 #### [facility] ([id number]) [address], [address] [place] [address] Eosinophils (Bld) [#/Vol] 0.1 10*3/uL Normal 0.0-0.4 [facility] Comment on above: Performed By: #### C BCA, 5643-2, 1797-8, CMP, 3040-3, 28527-8, PINR, 16379-3 #### [facility] ([id number]) [address], [address] [place] [address] Eosinophils/100 WBC (Bld) 1.8 % Normal [facility] Comment on above: Performed By: #### C BCA, 5643-2, 1797-8, CMP, 3040-3, 03640-7, PINR, 00812-7 #### [facility] ([id number]) [address], [address] [place] [address] Erythrocyte distribution width (RBC) [Ratio] 15.0 % Normal 11.5-15.0 [facility] Comment on above: Performed By: #### C BCA, 5643-2, 8, CMP, 3040-3, 45451-0, PINR, 60464-7 #### [facility] ([id number]) [address], [address] [place] [address] Hematocrit (Bld) [Volume fraction] 31.9 % Low 39-49 [facility] Comment on above: Performed By: #### C BCA, 5643-2, 1797-12, CMP, 3040-3, 54713-7, PINR, [id number] #### [facility] ([id number]) [address], [address] [place] [address] Hemoglobin (Bld) [Mass/Vol] 10.6 g/dL Low 13.0-17.0 [facility] Comment on above: Performed By: #### C BCA, 5643-2, 1797-12, CMP, 3040-3, 79126-2, PINR, 28005-1 #### [facility] ([id number]) [address] [facility] [address] [place] [address] Lymphocytes (Bld) [#/Vol] 0.6 10*3/uL Low 1.0-3.5 [facility] Comment on above: Performed By: #### C BCA, 5643-2, 8, CMP, 3040-3, 79643-0, PINR, 71814-7 #### [facility] ([id number]) [address], [address] [place] [address] Lymphocytes/100 WBC (Bld) 8.5 % Normal [facility] Comment on above: Performed By: #### C BCA, 5643-2, 1797-8, CMP, 3040-3, 02720-2, PINR, 17847-7 #### [facility] ([id number]) [address], [address] [place] [address] MCH (RBC) [Entitic mass] 31.1 pg Normal 27-34 [facility] Comment on above: Performed By: #### C BCA, 5643-2, 1797-8, CMP, 3040-3, 50526-8, PINR, 71313-6 #### [facility] ([id number]) [address], [address] [place] [address] MCHC (RBC) [Mass/Vol] 33.2 g/dL Normal 32-36 [facility] Comment on above: Performed By: #### C BCA, 5643-2, 1797-8, CMP, 3040-3, 99168-5, PINR, 03547-0 #### [facility] ([id number]) [address], [address] [place] [address] MCV (RBC) [Entitic vol] 94 fL Normal 80-100 [facility] Comment on above: Performed By: #### C BCA, 5643-2, 1797-8, CMP, 3040-3, 80171-0, PINR, 15795-3 #### [facility] ([id number]) [address], [address] [place] [address] Monocytes (Bld) [#/Vol] 0.6 10*3/uL Normal 0-0.9 [facility] Comment on above: Performed By: #### C BCA, 5643-2, 1797-8, CMP, 3040-3, 96229-7, PINR, 10474-2 #### [facility] ([id number]) [address], [address] [place] [address] Monocytes/100 WBC (Bld) 8.1 % Normal [facility] Comment on above: Performed By: #### C BCA, 5643-2, 1797-8, CMP, 3040-3, 07286-6, PINR, 82818-9 #### [facility] ([id number]) [address], [facility] [address] [place] [address] Neutrophils/100 WBC (Bld) 81.2 % Normal [facility] Comment on above: Performed By: #### C BCA, 5643-2, 1797-8, CMP, 3040-3, 71125-4, PINR, 95189-1 #### [facility] ([id number]) [address] [address] [place] [address] Platelet mean volume (Bld) [Entitic vol] 8.4 fL Normal 7-12 [facility] Comment on above: Performed By: #### C BCA, 5643-2, 1797-8, CMP, 3040-3, 59108-7, PINR, 65825-4 #### [facility] ([id number]) [address], [facility] [address] [place] [address] Platelets (Bld) [#/Vol] 216 10*3/uL Normal 150-450 [facility] Comment on above: Performed By: #### C BCA, 5643-2, 1797-8, CMP, 3040-3, 52547-9, PINR, 24274-6 #### [facility] ([id number]) [address], [facility] [address] [place] [address] RBC COUNT 3.40 X10E12/L Low 4.10-5.70 [facility] Comment on above: Performed By: #### C BCA, 5643-2, 1797-8, CMP, 3040-3, 67170-3, PINR, 54378-3 #### [facility] ([id number]) [address] [address] [place] [address] WBC (Bld) [#/Vol] 7.0 10*3/uL Normal 4.0-11.[address] [facility] Comment on above: Performed By: #### C BCA, 5643-2, 1798-8, CMP, 3040-3, 27692-7, PINR, 17122-4 #### [facility] ([id number]) [address] [place] [address] CBC auto differentialon 06-15 Basophils (Bld) [#/Vol] 0 10*3/uL [facility] Basophils/100 WBC (Bld) 0.4 % [facility] Eosinophils (Bld) [#/Vol] 0.1 10*3/uL [facility] Eosinophils/100 WBC (Bld) 1.8 % [facility] Erythrocyte distribution width (RBC) [Ratio] 15 % 11.5 - 15.0 % [facility] Hematocrit (Bld) [Volume fraction] 31.9 % Low 39 - 49 % [facility] Hemoglobin (Bld) [Mass/Vol] 10.6 g/dL Low 13.0 - 17.0 g/dL [facility] Interpretation and review of laboratory results Abnormal [facility] Lymphocytes (Bld) [#/Vol] 0.6 10*3/uL [facility] Lymphocytes/100 WBC (Bld) 8.5 % [facility] MCH (RBC) [Entitic mass] 31.1 pg 27 - 34 pg [facility] MCHC (RBC) [Mass/Vol] 33.2 g/dL 32 - 3 6 g/dL [facility] MCV (RBC) [Entitic vol] 94 fL 80 - 100 fL [facility] Monocytes (Bld) [#/Vol] 0.6 10*3/uL [facility] Monocytes/100 WBC (Bld) 8.1 % [facility] Neutrophils (Bld) [#/Vol] 5.7 10*3/uL [facility] Neutrophils/100 WBC (Bld) 81.2 % [facility] Platelet mean volume (Bld) [Entitic vol] 8.4 fL 7 - 12 fL [facility] Platelets (Bld) [#/Vol] 216 10*3/uL [facility] RBC (Bld) [#/Vol] 3.4 10*6/uL Low [facility] WBC corrected for nucl RBC Auto (Bld) [#/Vol] 7 [facility] Glucose Glucometer (BldC) [M ass/Vol]on 07-03-2024 Glucose [Mass/Vol] 90 mg/dL 65 - 99 mg/dL [facility] Glucose [Mass/Vol] 90 mg/dL Normal 65-[address] [facility] Glucose [Mass/Vol] 101 mg/dL High 65 - 99 mg/dL [facility] Interpretation and review of laboratory results Abnormal [facility] Glucose [Mass/Vol] 101 mg/dL High 65-[address] [facility] Glucose [Mass/Vol] 129 mg/dL High 65 - 99 mg/dL [facility] Interpretation and review of laboratory results Abnormal [facility] Glucose [Mass/Vol] 129 mg/dL High 65-[address] [facility] Glucose [Mass/Vol] 129 mg/dL High 65 - 99 mg/dL [facility] Interpretation and review of laboratory results Abnormal [facility] Glucose [Mass/Vol] 129 mg/dL High 65-[address] [facility] Glucose [Mass/Vol] 116 mg/dL High 65 - 99 mg/dL [facility] Interpretation and review of laboratory results Abnormal [facility] Glucose [Mass/Vol] 116 mg/dL High 65-[address] [facility] Glucose [Mass/Vol] 125 mg/dL High 65 - 99 mg/dL [facility] Interpretation and review of laboratory results Abnormal [facility] Glucose [Mass/Vol] 125 mg/dL High 65-[address] [facility] HGBon 07-03-2024 Hematocrit (Bld) [Volume fraction] 33.4 % Low 39-49 [facility] Comment on above: Performed By: #### C BCA, 5643-2, 1798-8, CMP, 3040-3, 64868-4, PINR, 96555-7 #### [facility] ([id number]) [address], [address] [place] [address] Hemoglobin (Bld) [Mass/Vol] 11.0 g/dL Low 13.0-17.0 [facility] Comment on above: Performed By: #### C BCA, 5643-2, 1798-8, CMP, 3040-3, 79301-8, PINR, 08134-4 #### [facility] ([id number]) [address], [address] [place] [address] Hemoglobin and hematocrit, b loodon 07-03-2024 Hemoglobin (Bld) [Mass/Vol] 11 g/dL Low 13.0 - 17.0 g/dL [facility] Interpretation and review of laboratory results Abnormal [facility].doppler Lower extremity v ein - bilateralon 07-03-2024 [...] at the phone number beside their name. [facility].doppler Lower extremity v ein - bilateralOrdered By: Brian Valverde on 07-03-2024 [facility] Work Phone: BASIC METABOLIC PANLon 02-18 -2025 Anion gap [Moles/Vol] 8 mmol/L Normal 5-15 [facility] Comment on above: Performed By: #### C BCA, 5643-2, 1797-8, CMP, 3040-3, 34868-5, PINR, 83566-4 #### [facility] ([id number]) [address], [address] [place] [address] Calcium [Mass/Vol] 8.2 mg/dL Low 8.5-10.[address] [facility] Comment on above: Performed By: #### C BCA, 5643-2, 1797-8, CMP, 3040-3, 83419-4, PINR, 05855-3 #### [facility] ([id number]) [address], [address] [place] [address] Chloride [Moles/Vol] 108 mmol/L Normal 98-109 [facility] Comment on above: Performed By: #### C BCA, 5643-2, 8, CMP, 3040-3, 69027-6, PINR, 25839-8 #### [facility] ([id number]) [address], [address] [place] [address] CO2 [Moles/Vol] 26 mmol/L Normal 22-32 [facility] Comment on above: Performed By: #### C BCA, 5643-2, 1797-8, CMP, 3040-3, 00767-3, PINR, 49950-2 #### [facility] ([id number]) [address], [address] [place] [address] Creatinine [Mass/Vol] 1.15 mg/dL Normal 0.60-1.30 [facility] Comment on above: Result Comment: METH OD TRACEABLE TO IDMS STANDARD Performed By: #### C BCA, 5643-2, 1797-8, CMP, 3040-3, 87490-8, PINR, 82038-3 #### [facility] ([id number]) [address], [address] [place] [address] GFR/1.73 sq M.predicted among non-blacks MDRD (S/P/Bld) [Vol rate/Area] 65 mL/min/{1.73_m2} Normal >59 Pr [facility] Comment on above: Result Comment: Reported eGFR is based on the CKD-EPI 2020 equation that does not use a race coefficient. Performed By: #### C BCA, 5643-2, 1797-8, CMP, 3040-3, 16935-8, PINR, 92716-0 #### [facility] ([id number]) [address] [address] Glucose [Mass/Vol] 93 mg/dL Normal 65-[address] [facility] Comment on above: Performed By: #### C BCA, 5643-2, 1797-8, CMP, 3040-3, 36211-7, PINR, 50691-0 #### [facility] ([id number]) [address] [address] Potassium [Moles/Vol] 4.1 mmol/L Normal 3.5-5.0 [facility] Comment on above: Performed By: #### C BCA, 5643-2, 8, CMP, 3040-3, 08330-4, PINR, 69335-3 #### [facility] ([id number]) [address] [address] Sodium [Moles/Vol] 142 mmol/L Normal 134-[address] [facility] Comment on above: Performed By: #### C BCA, 5643-2, 1797-8, CMP, 3040-3, 48963-5, PINR, 94045-6 #### [facility] ([id number]) [address], [facility] [address] [place] [address] Urea nitrogen [Mass/Vol] 13 mg/dL Normal 5-27 [facility] Comment on above: Performed By: #### C BCA, 5643-2, 8-8, CMP, 3040-3, 35157-6, PINR, 03551-8 #### [facility] ([id number]) [address], [address] [place] [address] Basic Metabolic Panelon - Anion gap [Moles/Vol] 8 mmol/L 5 - 15 mmol/L [facility] Calcium [Mass/Vol] 8.2 mg/dL Low 8.5 - 10. 5 mg/dL [facility] Chloride [Moles/Vol] 108 mmol/L 98 - 10 9 mmol/L [facility] CO2 [Moles/Vol] 26 mmol/L 22 - 32 mmol/L [facility] Creatinine [Mass/Vol] 1.15 mg/dL 0.60 - 1.30 mg/dL [facility] Comment on above: METHOD TRACEABLE TO [facility] STANDARD eGFR (CKD-EPI)non-race dependent 65 - PINF [facility] Comment on above: Reported eGFR is based on the CKD-EPI 2020 equation that does not use a race coefficient. Glucose [Mass/Vol] 93 mg/dL 65 - 99 mg/dL [facility] Interpretation and review of laboratory results Abnormal [facility] Potassium [Moles/Vol] 4.1 mmol/L 3.5 - 5.0 mmol/L [facility] Sodium [Moles/Vol] 142 mmol/L 134 - 146 mmol/L [facility] Urea nitrogen [Mass/Vol] 13 mg/dL 5 - 27 mg/dL [facility] CBC AND AUTO DIFFon 07-02-19 25 ABSOLUTE BASOPHIL 0.0 X10E9/L Normal 0.0-0.[address] [facility] Comment on above: Performed By: #### C BCA, 5643-2, 1798-8, CMP, 3040-3, 66679-6, PINR, 31284-3 #### [facility] ([id number]) [address] [place] [address] ABSOLUTE NEUTROPHIL 6.1 X10E9/L Normal 1.5-6.6 [facility] Comment on above: Performed By: #### C BCA, 5643-2, 1797-8, CMP, 3040-3, 93556-7, PINR, 05493-3 #### [facility] ([id number]) [address], [address] [place] [address] Basophils/100 WBC (Bld) 0.3 % Normal [facility] Comment on above: Performed By: #### C BCA, 5643-2, 1797-8, CMP, 3040-3, 86855-8, PINR, 37028-5 #### [facility] ([id number]) [address] [address] [place] [address] Eosinophils (Bld) [#/Vol] 0.1 10*3/uL Normal 0.0-0.4 [facility] Comment on above: Performed By: #### C BCA, 5643-2, 1797-8, CMP, 3040-3, 49666-8, PINR, 02298-2 #### [facility] ([id number]) [address], [address] [place] [address] Eosinophils/100 WBC (Bld) 1.5 % Normal [facility] Comment on above: Performed By: #### C BCA, 5643-2, 1797-8, CMP, 3040-3, 97068-8, PINR, 18259-9 #### [facility] ([id number]) [address] [facility] [address] [place] [address] Erythrocyte distribution width (RBC) [Ratio] 15.5 % High 11.5-15.0 [facility] Comment on above: Performed By: #### C BCA, 5643-2, 1797-8, CMP, 3040-3, 85433-7, PINR, 23122-9 #### [facility] ([id number]) [address], [address] [place] [address] Hematocrit (Bld) [Volume fraction] 31.2 % Low 39-49 [facility] Comment on above: Performed By: #### C BCA, 5643-2, 1797-8, CMP, 3040-3, 18028-4, PINR, 24365-3 #### [facility] ([id number]) [address], [address] [place] [address] Hemoglobin (Bld) [Mass/Vol] 10.7 g/dL Low 13.0-17.0 [facility] Comment on above: Performed By: #### C BCA, 5643-2, 1797-8, CMP, 3040-3, 62616-6, PINR, 44632-1 #### [facility] ([id number]) [address] [address] Lymphocytes (Bld) [#/Vol] 0.6 10*3/uL Low 1.0-3.5 [facility] Comment on above: Performed By: #### C BCA, 5643-2, 1797-8, CMP, 3040-3, 26015-4, PINR, 91097-9 #### [facility] ([id number]) [address] [address] Lymphocytes/100 WBC (Bld) 8.9 % Normal [facility] Comment on above: Performed By: #### C BCA, 5643-2, 1797-8, CMP, 3040-3, 65281-8, PINR, 07122-5 #### [facility] ([id number]) [address], [facility] [address] [place] [address] MCH (RBC) [Entitic mass] 31.8 pg Normal 27-34 [facility] Comment on above: Performed By: #### C BCA, 5643-2, 1797-8, CMP, 3040-3, 02909-9, PINR, 75445-6 #### [facility] ([id number]) [address], [address] [place] [address] MCHC (RBC) [Mass/Vol] 34.3 g/dL Normal 32-36 [facility] Comment on above: Performed By: #### C BCA, 5643-2, 1797-8, CMP, 3040-3, 67459-0, PINR, 04527-6 #### [facility] ([id number]) [address], [facility] [address] [place] [address] MCV (RBC) [Entitic vol] 93 fL Normal 80-100 [facility] Comment on above: Performed By: #### C BCA, 5643-2, 1797-8, CMP, 3040-3, 04743-0, PINR, 57360-4 #### [facility] ([id number]) [address] [address] [place] [address] Monocytes (Bld) [#/Vol] 0.4 10*3/uL Normal 0-0.9 [facility] Comment on above: Performed By: #### C BCA, 5643-2, 1797-8, CMP, 3040-3, 41149-2, PINR, 22042-5 #### [facility] ([id number]) [address] [address] Monocytes/100 WBC (Bld) 5.9 % Normal [facility] Comment on above: Performed By: #### C BCA, 5643-2, 8, CMP, 3040-3, 38996-4, PINR, 02681-2 #### [facility] ([id number]) [address] [address] [place] [address] Neutrophils/100 WBC (Bld) 83.4 % Normal [facility] Comment on above: Performed By: #### C BCA, 5643-2, 1797-8, CMP, 3040-3, 21981-8, PINR, 04640-8 #### [facility] ([id number]) [address] [address] [place] [address] Platelet mean volume (Bld) [Entitic vol] 8.5 fL Normal 7-12 [facility] Comment on above: Performed By: #### C BCA, 5643-2, 1797-8, CMP, 3040-3, 82557-2, PINR, 02696-9 #### [facility] ([id number]) [address], [address] [address] Platelets (Bld) [#/Vol] 228 10*3/uL Normal 150-450 [facility] Comment on above: Performed By: #### C BCA, 5643-2, 1797-8, CMP, 3040-3, 98595-4, PINR, 86091-1 #### [facility] ([id number]) [address] [address] RBC COUNT 3.36 X10E12/L Low 4.10-5.70 [facility] Comment on above: Performed By: #### C BCA, 5643-2, 8, CMP, 3040-3, 23497-0, PINR, 48745-4 #### [facility] ([id number]) [address] [address] WBC (Bld) [#/Vol] 7.3 10*3/uL Normal 4.0-11.[address] [facility] Comment on above: Performed By: #### C BCA, 5643-2, 1797-8, CMP, 3040-3, 32078-7, PINR, 59938-2 #### [facility] ([id number]) [address] [address] CBC auto differentialon 06-15 Basophils (Bld) [#/Vol] 0 10*3/uL [facility] Basophils/100 WBC (Bld) 0.3 % [facility] Eosinophils (Bld) [#/Vol] 0.1 10*3/uL [facility] Eosinophils/100 WBC (Bld) 1.5 % [facility] Erythrocyte distribution width (RBC) [Ratio] 15.5 % High 11.5 - 15.0 % [facility] Hematocrit (Bld) [Volume fraction] 31.2 % Low 39 - 49 % [facility] Hemoglobin (Bld) [Mass/Vol] 10.7 g/dL Low 13.0 - 17.0 g/dL [facility] Interpretation and review of laboratory results Abnormal [facility] Lymphocytes (Bld) [#/Vol] 0.6 10*3/uL Low [facility] Lymphocytes/100 WBC (Bld) 8.9 % [facility] MCH (RBC) [Entitic mass] 31.8 pg 27 - [address] [facility] MCHC (RBC) [Mass/Vol] 34.3 g/dL 32 - 3 6 g/dL [facility] MCV (RBC) [Entitic vol] 93 fL 80 - [address] [facility] Monocytes (Bld) [#/Vol] 0.4 10*3/uL [facility] Monocytes/100 WBC (Bld) 5.9 % [facility] Neutrophils (Bld) [#/Vol] 6.1 10*3/uL [facility] Neutrophils/100 WBC (Bld) 83.4 % [facility] Platelet mean volume (Bld) [Entitic vol] 8.5 fL 7 - [address] [facility] Platelets (Bld) [#/Vol] 228 10*3/uL [facility] RBC (Bld) [#/Vol] 3.36 10*6/uL Low [facility] WBC corrected for nucl RBC Auto (Bld) [#/Vol] 7.[address] [facility] Glucose Glucometer (dC) [M ass/Vol]on 07-02-2024 Glucose [Mass/Vol] 103 mg/dL High 65 - 99 mg/dL [facility] Interpretation and review of laboratory results Abnormal [facility] Glucose [Mass/Vol] 103 mg/dL High 65-[address] [facility] Glucose [Mass/Vol] 144 mg/dL High 65 - 99 mg/dL [facility] Interpretation and review of laboratory results Abnormal [facility] Glucose [Mass/Vol] 144 mg/dL High 65-[address] [facility] Glucose [Mass/Vol] 158 mg/dL High 65 - 99 mg/dL [facility] Interpretation and review of laboratory results Abnormal [facility] Glucose [Mass/Vol] 158 mg/dL High 65-[address] [facility] Glucose [Mass/Vol] 87 mg/dL 65 - 99 mg/dL [facility] Glucose [Mass/Vol] 87 mg/dL Normal 65-[address] [facility] Glucose [Mass/Vol] 90 mg/dL 65 - 99 mg/dL [facility] Glucose [Mass/Vol] 90 mg/dL Normal 65-99 [facility] 07-02-2024 Hematocrit (Bld) [Volume fraction] 34.3 % Low 39-49 [facility] Comment on above: Performed By: #### C HERNANDEZ, 5643-2, 1798-8, CMP, 3040-3, 83669-8, PINR, 69849-0 #### [facility] ([id number]) [address], [address] [place] [address] Hemoglobin (Bld) [Mass/Vol] 11.4 g/dL Low 13.0-17.0 [facility] Comment on above: Performed By: #### C BCA, 5643-2, 1798-8, CMP, 3040-3, 08754-1, PINR, 50690-1 #### [facility] ([id number]) [address] [place] [address] Hemoglobin and hematocrit, b [facility] 07-02-2024 Hematocrit (Bld) [Volume fraction] 34.3 % Low 39 - 49 % [facility] Hemoglobin (Bld) [Mass/Vol] 11.4 g/dL Low 13.0 - 17.0 g/dL [facility] Interpretation and review of laboratory results Abnormal [facility] US.doppler Lower extremity v ein - bilateralon 07-02-2024 Radiology Study observation (narrative) [facility] BASIC METABOLIC PANLon 07-01 Anion gap [Moles/Vol] 5 mmol/L Normal 5-15 [facility] Comment on above: Performed By: #### C BCA, 5643-2, 1798-8, CMP, 3040-3, 31050-3, PINR, 73665-2 #### [facility] ([id number]) [address], [address] [place] [address] Calcium [Mass/Vol] 7.9 mg/dL Low 8.5-10.[address] [facility] Comment on above: Performed By: #### C BCA, 5643-2, 8-8, CMP, 3040-3, 41373-1, PINR, 20116-7 #### [facility] ([id number]) [address], [address] [place] [address] Chloride [Moles/Vol] 111 mmol/L High 98-109 [facility] Comment on above: Performed By: #### C BCA, 5643-2, 1797-8, CMP, 3040-3, 56724-6, PINR, [id number] #### [facility] ([id number]) [address], [address] [place] [address] CO2 [Moles/Vol] 25 mmol/L Normal 22-32 [facility] Comment on above: Performed By: #### C BCA, 5643-2, 1798-8, CMP, 3040-3, 78903-0, PINR, [id number] #### [facility] ([id number]) [address], [address] [place] [address] Creatinine [Mass/Vol] 1.24 mg/dL Normal 0.60-1.30 [facility] Comment on above: Result Comment: METH OD TRACEABLE TO IDMS STANDARD Performed By: #### C BCA, 5643-2, 1797-8, CMP, 3040-3, 89951-8, PINR, [id number] #### [facility] ([id number]) [address], [address] [address] GFR/1.73 sq M.predicted among non-blacks MDRD (S/P/Bld) [Vol rate/Area] 60 mL/min/{1.73_m2} Normal >59 [facility] Comment on above: Result Comment: Reported eGFR is based on the CKD-EPI 2020 equation that does not use a race coefficient. Performed By: #### C BCA, 5643-2, 1797-8, CMP, 3040-3, 04053-8, PINR, [id number] #### [facility] ([id number]) [address], [facility] [address] [place] [address] Glucose [Mass/Vol] 103 mg/dL High 65-[address] [facility] Comment on above: Performed By: #### C BCA, 5643-2, 1797-8, CMP, 3040-3, 82413-8, PINR, 76440-9 #### [facility] [facility] ([id number]) [address], [address] [address] Potassium [Moles/Vol] 3.7 mmol/L Normal 3.5-5.0 [facility] Comment on above: Performed By: #### C BCA, 5643-2, 1797-8, CMP, 3040-3, 70021-8, PINR, 57874-2 #### [facility] ([id number]) [address], [address] [place] [address] Sodium [Moles/Vol] 141 mmol/L Normal 134-[address] [facility] Comment on above: Performed By: #### C BCA, 5643-2, 1797-8, CMP, 3040-3, 66598-8, PINR, 24117-6 #### [facility] ([id number]) [address], [address] [place] [address] Urea nitrogen [Mass/Vol] 16 mg/dL Normal 5-27 [facility] Comment on above: Performed By: #### C BCA, 5643-2, 1798-8, CMP, 3040-3, 71636-7, PINR, 41041-8 #### [facility] ([id number]) [address], [address] [place] [address] Basic Metabolic Panelon 06-15 Anion gap [Moles/Vol] 5 mmol/L 5 - 15 mmol/L [facility] Calcium [Mass/Vol] 7.9 mg/dL Low 8.5 - 10. 5 mg/dL [facility] Chloride [Moles/Vol] 111 mmol/L High 98 - 10 9 mmol/L [facility] CO2 [Moles/Vol] 25 mmol/L 22 - 32 mmol/L [facility] Creatinine [Mass/Vol] 1.24 mg/dL 0.60 - 1.30 mg/dL [facility] Comment on above: METHOD TRACEABLE TO IDAR STANDARD eGFR (CKD-EPI)non-race dependent 60 - PINF [facility] Comment on above: Reported eGFR is based on the CKD-EPI 2020 equation that does not use a race coefficient. Glucose [Mass/Vol] 103 mg/dL High 65 - 99 mg/dL [facility] Interpretation and review of laboratory results Abnormal [facility] Potassium [Moles/Vol] 3.7 mmol/L 3.5 - 5.0 mmol/L [facility] Sodium [Moles/Vol] 141 mmol/L 134 - 146 mmol/L [facility] Urea nitrogen [Mass/Vol] 16 mg/dL 5 - 27 mg/dL [facility] CBC AND AUTO DIFFon 07-01-19 25 ABSOLUTE BASOPHIL 0.0 X10E9/L Normal 0.0-0.[address] [facility] Comment on above: Performed By: #### C BCA, 5643-2, 1798-8, CMP, 3040-3, 43303-6, PINR, 69761-1 #### [facility] ([id number]) [address], [address] [place] [address] ABSOLUTE NEUTROPHIL 8.1 X10E9/L High 1.5-6.6 [facility] Comment on above: Performed By: #### C BCA, 5643-2, 8, CMP, 3040-3, 01075-4, PINR, 59647-5 #### [facility] ([id number]) [address], [address] [place] [address] Basophils/100 WBC (Bld) 0.4 % Normal [facility] Comment on above: Performed By: #### C BCA, 5643-2, 1797-12, CMP, 3040-3, 34107-7, PINR, 76492-9 #### [facility] ([id number]) [address], [address] [place] [address] Eosinophils (Bld) [#/Vol] 0.1 10*3/uL Normal 0.0-0.4 [facility] Comment on above: Performed By: #### C BCA, 5643-2, 1797-12, CMP, 3040-3, 78728-7, PINR, 46349-7 #### [facility] ([id number]) [address], [address] [place] [address] Eosinophils/100 WBC (Bld) 1.5 % Normal [facility] Comment on above: Performed By: #### C BCA, 5643-2, 1797-12, CMP, 3040-3, 83174-7, PINR, 45770-2 #### [facility] ([id number]) [address], [address] [place] [address] Erythrocyte distribution width (RBC) [Ratio] 15.7 % High 11.5-15.0 [facility] Comment on above: Performed By: #### C BCA, 5643-2, 8, CMP, 3040-3, 74746-6, PINR, 57350-9 #### [facility] ([id number]) [address], [address] [place] [address] Hematocrit (Bld) [Volume fraction] 29.9 % Low 39-49 [facility] Comment on above: Performed By: #### C BCA, 5643-2, 1797-8, CMP, 3040-3, 27463-0, PINR, 95072-1 #### [facility] ([id number]) [address], [address] [place] [address] Hemoglobin (Bld) [Mass/Vol] 10.2 g/dL Low 13.0-17.0 [facility] Comment on above: Performed By: #### C BCA, 5643-2, 1797-8, CMP, 3040-3, 61958-1, PINR, 05229-9 #### [facility] ([id number]) [address], [address] [place] [address] Lymphocytes (Bld) [#/Vol] 0.7 10*3/uL Low 1.0-3.5 [facility] Comment on above: Performed By: #### C BCA, 5643-2, 8, CMP, 3040-3, 42971-6, PINR, 63481-2 #### [facility] ([id number]) [address], [address] [place] [address] Lymphocytes/100 WBC (Bld) 6.8 % Normal [facility] Comment on above: Performed By: #### C BCA, 5643-2, 1797-8, CMP, 3040-3, 56886-2, PINR, 17241-5 #### [facility] ([id number]) [address], [address] [place] [address] MCH (RBC) [Entitic mass] 31.3 pg Normal 27-34 [facility] Comment on above: Performed By: #### C BCA, 5643-2, 1798-8, CMP, 3040-3, 30249-6, PINR, 03990-0 #### [facility] ([id number]) [address], [address] [place] [address] MCHC (RBC) [Mass/Vol] 34.2 g/dL Normal 32-36 [facility] Comment on above: Performed By: #### C BCA, 5643-2, 1797-8, CMP, 3040-3, 84807-5, PINR, 59229-6 #### [facility] ([id number]) [address], [address] [place] [address] MCV (RBC) [Entitic vol] 92 fL Normal 80-100 [facility] Comment on above: Performed By: #### C BCA, 5643-2, 1797-8, CMP, 3040-3, 86460-1, PINR, 89297-4 #### [facility] ([id number]) [address], [address] [place] [address] Monocytes (Bld) [#/Vol] 0.6 10*3/uL Normal 0-0.9 [facility] Comment on above: Performed By: #### C BCA, 5643-2, 8, CMP, 3040-3, 63016-1, PINR, 43166-5 #### [facility] ([id number]) [address], [address] [place] [address] Monocytes/100 WBC (Bld) 6.3 % Normal [facility] Comment on above: Performed By: #### C BCA, 5643-2, 1797-8, CMP, 3040-3, 49868-6, PINR, 50336-3 #### [facility] ([id number]) [address], [address] [place] [address] Neutrophils/100 WBC (Bld) 85.0 % Normal [facility] Comment on above: Performed By: #### C BCA, 5643-2, 8-8, CMP, 3040-3, 70602-6, PINR, 81558-2 #### [facility] ([id number]) [address], [address] [place] [address] Platelet mean volume (Bld) [Entitic vol] 8.6 fL Normal 7-12 [facility] Comment on above: Performed By: #### C BCA, 5643-2, 8-8, CMP, 3040-3, 24130-6, PINR, 33849-0 #### [facility] ([id number]) [address] [address] Platelets (Bld) [#/Vol] 235 10*3/uL Normal 150-450 [facility] Comment on above: Performed By: #### C BCA, 5643-2, 1797-8, CMP, 3040-3, 94952-0, PINR, 21196-4 #### [facility] ([id number]) [address] [place] [address] RBC COUNT 3.27 X10E12/L Low 4.10-5.70 [facility] Comment on above: Performed By: #### C BCA, 5643-2, 1797-8, CMP, 3040-3, 12006-7, PINR, 23978-1 #### [facility] ([id number]) [address] [address] WBC (Bld) [#/Vol] 9.5 10*3/uL Normal 4.0-11.[address] [facility] Comment on above: Performed By: #### C BCA, 5643-2, 1797-8, CMP, 3040-3, 08676-5, PINR, 88292-4 #### [facility] ([id number]) [address] [place] [address] CBC auto differentialon 02-1 7-2025 Basophils (Bld) [#/Vol] 0 10*3/uL [facility] Basophils/100 WBC (Bld) 0.4 % [facility] Eosinophils (Bld) [#/Vol] 0.1 10*3/uL [facility] Eosinophils/100 WBC (Bld) 1.5 % [facility] Erythrocyte distribution width (RBC) [Ratio] 15.7 % High 11.5 - 15.0 % [facility] Hematocrit (Bld) [Volume fraction] 29.9 % Low 39 - 49 % [facility] Hemoglobin (Bld) [Mass/Vol] 10.2 g/dL Low 13.0 - 17.0 g/dL [facility] Interpretation and review of laboratory results Abnormal [facility] Lymphocytes (Bld) [#/Vol] 0.7 10*3/uL Low [facility] Lymphocytes/100 WBC (Bld) 6.8 % [facility] MCH (RBC) [Entitic mass] 31.3 pg 27 - 34 pg [facility] MCHC (RBC) [Mass/Vol] 34.2 g/dL 32 - 3 6 g/dL [facility] MCV (RBC) [Entitic vol] 92 fL 80 - [address] [facility] Monocytes (Bld) [#/Vol] 0.6 10*3/uL [facility] Monocytes/100 WBC (Bld) 6.3 % [facility] Neutrophils (Bld) [#/Vol] 8.1 10*3/uL High [facility] Neutrophils/100 WBC (Bld) 85 % [facility] Platelet mean volume (Bld) [Entitic vol] 8.6 fL 7 - [address] [facility] Platelets (Bld) [#/Vol] 235 10*3/uL [facility] RBC (Bld) [#/Vol] 3.27 10*6/uL Low [facility] WBC corrected for nucl RBC Auto (Bld) [#/Vol] 9.[address] [facility] Calcium.ionized (Bld) [Mass/ Vol]on 07-01-2024 IONIZED CALCIUM 4.8 mg/dL Normal 4.5-5.3 [facility] Comment on above: Performed By: #### C HERNANDEZ, 5643-2, 1798-8, CMP, 3040-3, 32293-4, PINR, 03077-4 #### [facility] ([id number]) [address], [address] [place] [address] Glucose Glucometer (BldC) [M ass/Vol]on 07-01-2024 Glucose [Mass/Vol] 106 mg/dL High 65 - 99 mg/dL [facility] Interpretation and review of laboratory results Abnormal [facility] Glucose [Mass/Vol] 106 mg/dL High 65-[address] [facility] Glucose [Mass/Vol] 133 mg/dL High 65 - 99 mg/dL [facility] Interpretation and review of laboratory results Abnormal [facility] Glucose [Mass/Vol] 133 mg/dL High 65-[address] [facility] Glucose [Mass/Vol] 96 mg/dL 65 - 99 mg/dL [facility] Glucose [Mass/Vol] 96 mg/dL Normal 65-[address] [facility] Glucose [Mass/Vol] 118 mg/dL High 65 - 99 mg/dL [facility] Interpretation and review of laboratory results Abnormal [facility] Glucose [Mass/Vol] 118 mg/dL High 65-[address] [facility] Glucose [Mass/Vol] 92 mg/dL 65 - 99 mg/dL [facility] Glucose [Mass/Vol] 92 mg/dL Normal 65-[address] [facility] Glucose [Mass/Vol] 90 mg/dL 65 - 99 mg/dL [facility] Glucose [Mass/Vol] 90 mg/dL Normal 65-[address] [facility] HGBon 07-01-2024 Hematocrit (Bld) [Volume fraction] 31.8 % Low 39-49 [facility] Comment on above: Performed By: #### C HERNANDEZ, 5643-2, 1798-8, CMP, 3040-3, 18306-7, PINR, 36674-9 #### [facility] ([id number]) [address] [place] [address] Hemoglobin (Bld) [Mass/Vol] 10.6 g/dL Low 13.0-17.0 [facility] Comment on above: Performed By: #### C BCA, 5643-2, 1798-8, CMP, 3040-3, 55751-4, PINR, 99512-4 #### [facility] ([id number]) [address] [place] [address] Hemoglobin and hematocrit, b loodon 07-01-2024 Hematocrit (Bld) [Volume fraction] 31.8 % Low 39 - 49 % [facility] Hemoglobin (Bld) [Mass/Vol] 10.6 g/dL Low 13.0 - 17.0 g/dL [facility] Interpretation and review of laboratory results Abnormal [facility] Ionized calciumon 07-01-2024 Calcium.ionized (Bld) [Mass/Vol] 4.8 mg/dL 4.5 - 5.3 mg/dL [facility] Ionized magnesiumon 07-01-19 25 Magnesium Ionized ISE (Bld) [Moles/Vol] 0.55 mmol/L 0.45 - 0.74 mmol/L [facility] Comment on above: NEW REFERENCE RANGE Magnesium Ionized ISE (Bld) [Moles/Vol]on 07-01-2024 Magnesium [Moles/Vol] 0.55 mmol/L Normal 0.45-0.74 [facility] Comment on above: Result Comment: NEW REFERENCE RANGE Performed By: #### C BCA, 5643-2, 1798-8, CMP, 3040-3, 12673-8, PINR, 99266-2 #### [facility] ([id number]) [address] [place] [address] No Panel Informationon 07-[address] [facility] PHOSPHORUSon 07-01-2024 Phosphate [Mass/Vol] 2.4 mg/dL Normal 2.4-4.9 [facility] Comment on above: Performed By: #### C BCA, 5643-2, 1797-8, CMP, 3040-3, 75002-6, PINR, 48125-5 #### [facility] ([id number]) [address], [address] [place] [address] POTASSIUMon 07-01-2024 Potassium [Moles/Vol] 4.2 mmol/L Normal 3.5-5.0 [facility] Comment on above: Performed By: #### C BCA, 5643-2, 1797-8, CMP, 3040-3, 35618-6, PINR, 89772-0 #### [facility] ([id number]) [address], [address] [place] [address] Potassium [Moles/Vol] 3.8 mmol/L Normal 3.5-5.0 [facility] Comment on above: Performed By: #### C BCA, 5643-2, 8, CMP, 3040-3, 88104-9, PINR, 21760-8 #### [facility] ([id number]) [address], [address] [place] [address] Phosphoruson 07-01-2024 Phosphate [Mass/Vol] 2.4 mg/dL 2.4 - 4 .9 mg/dL [facility] Potassiumon 07-01-2024 Potassium [Moles/Vol] 4.2 mmol/L 3.5 - 5.0 mmol/L [facility] Potassium [Moles/Vol] 3.8 mmol/L 3.5 - 5.0 mmol/L [facility] Potassium [Moles/Vol]on 06-15 [facility] BASIC METABOLIC PANLon 06-30 Anion gap [Moles/Vol] 8 mmol/L Normal 5-15 [facility] Comment on above: Performed By: #### C BCA, 5643-2, 1797-8, CMP, 3040-3, 46316-5, PINR, 65522-1 #### [facility] ([id number]) [address], [address] [place] [address] Calcium [Mass/Vol] 7.4 mg/dL Low 8.5-10.[address] [facility] Comment on above: Performed By: #### C BCA, 5643-2, 8-8, CMP, 3040-3, 46222-1, PINR, 91767-6 #### [facility] ([id number]) [address], [address] [place] [address] Chloride [Moles/Vol] 112 mmol/L High 98-109 [facility] Comment on above: Performed By: #### C BCA, 5643-2, 1797-8, CMP, 3040-3, 79907-6, PINR, 38463-3 #### [facility] ([id number]) [address], [address] [place] [address] CO2 [Moles/Vol] 22 mmol/L Normal 22-32 [facility] Comment on above: Performed By: #### C BCA, 5643-2, 1797-8, CMP, 3040-3, 73446-4, PINR, 37831-1 #### [facility] ([id number]) [address], [address] [place] [address] Creatinine [Mass/Vol] 1.39 mg/dL High 0.60-1.30 [facility] Comment on above: Result Comment: METH OD TRACEABLE TO IDMS STANDARD Performed By: #### C BCA, 5643-2, 8-8, CMP, 3040-3, 76790-7, PINR, 08302-0 #### [facility] ([id number]) [address], [address] [place] [address] GFR/1.73 sq M.predicted among non-blacks MDRD (S/P/Bld) [Vol rate/Area] 52 mL/min/{1.73_m2} Low >59 Pr [facility] Comment on above: Result Comment: Reported eGFR is based on the CKD-EPI 2020 equation that does not use a race coefficient. Performed By: #### C BCA, 5643-2, 8-8, CMP, 3040-3, 87306-8, PINR, 78551-6 #### [facility] ([id number]) [address], [address] [place] [address] Glucose [Mass/Vol] 69 mg/dL Normal 65-[address] [facility] Comment on above: Performed By: #### C BCA, 5643-2, 1797-8, CMP, 3040-3, 19819-8, PINR, 54012-0 #### [facility] ([id number]) [address], [address] [place] [address] Potassium [Moles/Vol] 4.2 mmol/L Normal 3.5-5.0 [facility] Comment on above: Performed By: #### C BCA, 5643-2, 1797-8, CMP, 3040-3, 02379-6, PINR, 24335-2 #### [facility] ([id number]) [address], [address] [place] [address] Sodium [Moles/Vol] 142 mmol/L Normal 134-[address] [facility] Comment on above: Performed By: #### C BCA, 5643-2, 1797-8, CMP, 3040-3, 99460-9, PINR, 14119-5 #### [facility] ([id number]) [address], [address] [place] [address] Urea nitrogen [Mass/Vol] 20 mg/dL Normal 5-27 [facility] Comment on above: Performed By: #### C BCA, 5643-2, 1797-8, CMP, 3040-3, 09234-8, PINR, 66316-3 #### [facility] ([id number]) [address] [place] [address] Bacteria identified Cx Nom ( U)on 06-30-2024 Service comment (Unsp spec) [Interp] URINE RECEIVED WITHOUT PRESERVATIVE [facility] Service comment (Unsp spec) [Interp] NO GROWTH AT <1000 CFU/mL [facility] Basic Metabolic Panelon 06-15 Anion gap [Moles/Vol] 8 mmol/L 5 - 15 mmol/L [facility] Calcium [Mass/Vol] 7.4 mg/dL Low 8.5 - 10. 5 mg/dL [facility] Chloride [Moles/Vol] 112 mmol/L High 98 - 10 9 mmol/L [facility] CO2 [Moles/Vol] 22 mmol/L 22 - 32 mmol/L [facility] Creatinine [Mass/Vol] 1.39 mg/dL High 0.60 - 1.30 mg/dL [facility] Comment on above: METHOD TRACEABLE TO [facility] STANDARD eGFR (CKD-EPI)non-race dependent 52 Low - PINF [facility] Comment on above: Reported eGFR is based on the CKD-EPI 2020 equation that does not use a race coefficient. Glucose [Mass/Vol] 69 mg/dL 65 - 99 mg/dL [facility] Interpretation and review of laboratory results Abnormal [facility] Potassium [Moles/Vol] 4.2 mmol/L 3.5 - 5.0 mmol/L [facility] Sodium [Moles/Vol] 142 mmol/L 134 - 146 mmol/L [facility] Urea nitrogen [Mass/Vol] 20 mg/dL 5 - 27 mg/dL [facility] CBC AND AUTO DIFFon 06-30-19 25 ABSOLUTE BASOPHIL 0.1 X10E9/L Normal 0.0-0.[address] [facility] Comment on above: Performed By: #### C BCA, 5643-2, 1798-8, CMP, 3040-3, 29803-9, PINR, 36376-7 #### [facility] ([id number]) [address], [address] [place] [address] ABSOLUTE NEUTROPHIL 8.7 X10E9/L High 1.5-6.6 [facility] Comment on above: Performed By: #### C BCA, 5643-2, 1797-8, CMP, 3040-3, 74045-2, PINR, 90700-9 #### [facility] ([id number]) [address], [address] [place] [address] Basophils/100 WBC (Bld) 1.4 % Normal [facility] Comment on above: Performed By: #### C BCA, 5643-2, 1797-8, CMP, 3040-3, 79032-1, PINR, 89934-2 #### [facility] ([id number]) [address] [facility] [address] [place] [address] Eosinophils (Bld) [#/Vol] 0.1 10*3/uL Normal 0.0-0.4 [facility] Comment on above: Performed By: #### C BCA, 5643-2, 8, CMP, 3040-3, 92860-8, PINR, 98503-7 #### [facility] ([id number]) [address], [address] [place] [address] Eosinophils/100 WBC (Bld) 0.6 % Normal [facility] Comment on above: Performed By: #### C BCA, 5643-2, 1797-8, CMP, 3040-3, 32329-5, PINR, 62061-7 #### [facility] ([id number]) [address], [address] [place] [address] Erythrocyte distribution width (RBC) [Ratio] 15.6 % High 11.5-15.0 [facility] Comment on above: Performed By: #### C BCA, 5643-2, 1797-8, CMP, 3040-3, 15034-3, PINR, 60068-0 #### [facility] ([id number]) [address], [address] [place] [address] Hematocrit (Bld) [Volume fraction] 30.3 % Low 39-49 [facility] Comment on above: Performed By: #### C BCA, 5643-2, 1797-8, CMP, 3040-3, 98306-5, PINR, 17403-3 #### [facility] ([id number]) [address], [address] [place] [address] Hemoglobin (Bld) [Mass/Vol] 10.4 g/dL Low 13.0-17.0 [facility] Comment on above: Performed By: #### C BCA, 5643-2, 1797-8, CMP, 3040-3, 85587-6, PINR, 18734-9 #### [facility] ([id number]) [address] [address] Lymphocytes (Bld) [#/Vol] 0.6 10*3/uL Low 1.0-3.5 [facility] Comment on above: Performed By: #### C BCA, 5643-2, 1797-8, CMP, 3040-3, 10584-8, PINR, 04013-0 #### [facility] ([id number]) [address] [place] [address] Lymphocytes/100 WBC (Bld) 5.6 % Normal [facility] Comment on above: Performed By: #### C BCA, 5643-2, 8, CMP, 3040-3, 58420-1, PINR, 31431-2 #### [facility] ([id number]) [address] [place] [address] MCH (RBC) [Entitic mass] 31.5 pg Normal 27-34 [facility] Comment on above: Performed By: #### C BCA, 5643-2, 1797-8, CMP, 3040-3, 68524-9, PINR, 36438-7 #### [facility] ([id number]) [address], [address] [place] [address] MCHC (RBC) [Mass/Vol] 34.3 g/dL Normal 32-36 [facility] Comment on above: Performed By: #### C BCA, 5643-2, 1797-8, CMP, 3040-3, 13680-8, PINR, 34552-8 #### [facility] ([id number]) [address], [facility] [address] [place] [address] MCV (RBC) [Entitic vol] 92 fL Normal 80-100 [facility] Comment on above: Performed By: #### C BCA, 5643-2, 1797-8, CMP, 3040-3, 97506-8, PINR, 15900-4 #### [facility] ([id number]) [address] [address] Monocytes (Bld) [#/Vol] 0.6 10*3/uL Normal 0-0.9 [facility] Comment on above: Performed By: #### C BCA, 5643-2, 1797-8, CMP, 3040-3, 30388-1, PINR, 22401-6 #### [facility] ([id number]) [address] [address] Monocytes/100 WBC (Bld) 6.4 % Normal [facility] Comment on above: Performed By: #### C BCA, 5643-2, 1797-8, CMP, 3040-3, 60371-4, PINR, 45489-3 #### [facility] ([id number]) [address] [address] Neutrophils/100 WBC (Bld) 86.0 % Normal [facility] Comment on above: Performed By: #### C BCA, 5643-2, 1797-8, CMP, 3040-3, 42334-9, PINR, 47212-8 #### [facility] ([id number]) [address] [address] Platelet mean volume (Bld) [Entitic vol] 8.8 fL Normal 7-12 [facility] Comment on above: Performed By: #### C BCA, 5643-2, 1797-8, CMP, 3040-3, 39767-3, PINR, 78055-6 #### [facility] ([id number]) [address], [address] [address] Platelets (Bld) [#/Vol] 197 10*3/uL Normal 150-450 [facility] Comment on above: Performed By: #### C BCA, 5643-2, 1797-8, CMP, 3040-3, 70731-3, PINR, 79640-7 #### [facility] ([id number]) [address] [address] RBC COUNT 3.30 X10E12/L Low 4.10-5.70 [facility] Comment on above: Performed By: #### C BCA, 5643-2, 1797-8, CMP, 3040-3, 92973-9, PINR, 49711-6 #### [facility] ([id number]) [address] [address] WBC (Bld) [#/Vol] 10.1 10*3/uL Normal 4.0-11.0 [facility] Comment on above: Performed By: #### C BCA, 5643-2, 1797-8, CMP, 3040-3, 86036-1, PINR, 68539-1 #### [facility] ([id number]) [address] [address] CBC auto differentialon 06-15 Basophils (Bld) [#/Vol] 0.1 10*3/uL [facility] Basophils/100 WBC (Bld) 1.4 % P [facility] Eosinophils (Bld) [#/Vol] 0.1 10*3/uL [facility] Eosinophils/100 WBC (Bld) 0.6 % [facility] Erythrocyte distribution width (RBC) [Ratio] 15.6 % High 11.5 - 15.0 % [facility] Hematocrit (Bld) [Volume fraction] 30.3 % Low 39 - 49 % [facility] Hemoglobin (Bld) [Mass/Vol] 10.4 g/dL Low 13.0 - 17.0 g/dL [facility] Interpretation and review of laboratory results Abnormal [facility] Lymphocytes (Bld) [#/Vol] 0.6 10*3/uL Low [facility] Lymphocytes/100 WBC (Bld) 5.6 % [facility] MCH (RBC) [Entitic mass] 31.5 pg 27 - 34 pg [facility] MCHC (RBC) [Mass/Vol] 34.3 g/dL 32 - 3 6 g/dL [facility] MCV (RBC) [Entitic vol] 92 fL 80 - 100 fL [facility] Monocytes (Bld) [#/Vol] 0.6 10*3/uL [facility] Monocytes/100 WBC (Bld) 6.4 % P [facility] Neutrophils (Bld) [#/Vol] 8.7 10*3/uL High [facility] Neutrophils/100 WBC (Bld) 86 % [facility] Platelet mean volume (Bld) [Entitic vol] 8.8 fL 7 - 12 fL [facility] Platelets (Bld) [#/Vol] 197 10*3/uL [facility] RBC (Bld) [#/Vol] 3.3 10*6/uL Low [facility] WBC corrected for nucl RBC Auto (Bld) [#/Vol] 10.1 [facility] Calcium.ionized (Bld) [Mass/ Vol]on 06-30-2024 [facility] IONIZED CALCIUM 4.7 mg/dL Normal 4.5-5.3 [facility] Comment on above: Performed By: #### C BCA, 5643-2, 1798-8, CMP, 3040-3, 69442-2, PINR, 12467-0 #### [facility] ([id number]) [address], [address] [place] [address] Crossmatch RBC:Number of Uni ts: 1on 06-30-2024 BB Type Barcode 6200 [facility] Blood component type [id number] [facility] Crossmatch Compatible [facility] Expiration Date [facility] Status of unit TRANSFUSED [facility] Unit ABO A [facility] Unit number [id number] [facility] Unit RH Positive [facility] Glucose Glucometer (BldC) [M ass/Vol]on 06-30-2024 Glucose [Mass/Vol] 88 mg/dL 65 - 99 mg/dL [facility] Glucose [Mass/Vol] 88 mg/dL Normal 65-[address] [facility] Glucose [Mass/Vol] 78 mg/dL 65 - 99 mg/dL [facility] Glucose [Mass/Vol] 78 mg/dL Normal 65-[address] [facility] Glucose [Mass/Vol] 67 mg/dL 65 - 99 mg/dL [facility] Glucose [Mass/Vol] 67 mg/dL Normal 65-[address] [facility] Glucose [Mass/Vol] 90 mg/dL Normal 65-99 [facility] Glucose [Mass/Vol] 71 mg/dL 65 - 99 mg/dL [facility] Glucose [Mass/Vol] 71 mg/dL Normal 65-[address] [facility] HGBon 06-30-2024 Hematocrit (Bld) [Volume fraction] 29.7 % Low 39-49 [facility] Comment on above: Performed By: #### C BCA, 5643-2, 1798-8, CMP, 3040-3, 72460-5, PINR, 76985-9 #### [facility] ([id number]) [address] [place] [address] Hemoglobin (Bld) [Mass/Vol] 10.1 g/dL Low 13.0-17.0 [facility] Comment on above: Performed By: #### C BCA, 5643-2, 8-8, CMP, 3040-3, 91996-9, PINR, 83351-0 #### [facility] ([id number]) [address], [address] [place] [address] Hematocrit (Bld) [Volume fraction] 29.1 % Low 39-49 [facility] Comment on above: Performed By: #### C BCA, 5643-2, 1797-8, CMP, 3040-3, 88459-4, PINR, 15014-1 #### [facility] ([id number]) [address], [address] [place] [address] Hemoglobin (Bld) [Mass/Vol] 10.0 g/dL Low 13.0-17.0 [facility] Comment on above: Performed By: #### C BCA, 5643-2, 1797-8, CMP, 3040-3, 51653-3, PINR, 32163-9 #### [facility] ([id number]) [address], [address] [place] [address] Hematocrit (Bld) [Volume fraction] 29.9 % Low 39-49 [facility] Comment on above: Performed By: #### C BCA, 5643-2, 1797-8, CMP, 3040-3, 55215-1, PINR, 54870-8 #### [facility] ([id number]) [address], [address] [place] [address] Hemoglobin (Bld) [Mass/Vol] 10.1 g/dL Low 13.0-17.0 [facility] Comment on above: Performed By: #### C BCA, 5643-2, 1797-8, CMP, 3040-3, 91127-6, PINR, 26236-6 #### [facility] ([id number]) [address] [place] [address] Hemoglobin and hematocrit, b loodon 06-30-2024 Hematocrit (Bld) [Volume fraction] 29.7 % Low 39 - 49 % [facility] Hemoglobin (Bld) [Mass/Vol] 10.1 g/dL Low 13.0 - 17.0 g/dL [facility] Interpretation and review of laboratory results Abnormal [facility] Hematocrit (Bld) [Volume fraction] 29.1 % Low 39 - 49 % [facility] Hemoglobin (Bld) [Mass/Vol] 10 g/dL Low 13.0 - 17.0 g/dL [facility] Interpretation and review of laboratory results Abnormal [facility] Hematocrit (Bld) [Volume fraction] 29.9 % Low 39 - 49 % [facility] Hemoglobin (Bld) [Mass/Vol] 10.1 g/dL Low 13.0 - 17.0 g/dL [facility] Interpretation and review of laboratory results Abnormal [facility] Ionized calciumon 06-30-2024 Calcium.ionized (Bld) [Mass/Vol] 4.7 mg/dL 4.5 - 5.3 mg/dL [facility] Ionized magnesiumon 06-30-19 25 Magnesium Ionized ISE (Bld) [Moles/Vol] 0.53 mmol/L 0.45 - 0.74 mmol/L [facility] Comment on above: NEW REFERENCE RANGE Magnesium Ionized ISE (Bld) [Moles/Vol]on 06-30-[address] [facility] Magnesium [Moles/Vol] 0.53 mmol/L Normal 0.45-0.74 Pr [facility] Comment on above: Result Comment: NEW REFERENCE RANGE Performed By: #### C BCA, 5643-2, 1798-8, CMP, 3040-3, 66051-5, PINR, 24276-6 #### [facility] ([id number]) [address] [place] [address] No Panel Informationon 06-[address] [facility] PHOSPHORUSon 06-30-2024 Phosphate [Mass/Vol] 3.5 mg/dL Normal 2.4-4.9 [facility] Comment on above: Performed By: #### C BCA, 5643-2, 1798-8, CMP, 3040-3, 20012-6, PINR, 43021-1 #### [facility] ([id number]) [address], [address] [place] [address] Phosphoruson 06-30-2024 Phosphate [Mass/Vol] 3.5 mg/dL 2.4 - 4 .9 mg/dL [facility] XR CHEST 1 VWon [...] Shell MD on 06/30/2024 8:17 PM Normal [facility] XR Chest Single viewon 06-30 CLINICAL INFORMATION: [...] Frieda Shell MD on 06/30/2024 8:17 PM SECTRAPACS Frieda Shell MD - 06/30/2024 CLINICAL INFORMATION: [...] Frieda Shell MD on 06/30/2024 8:17 PM [facility] Radiology Study observation (narrative) [facility] XR Chest Single viewOrdered By: Frieda Shell on 06-30-2024 [facility] Work Phone: ABO Rh Repeaton 06-29-2024 ABO A [facility] Rh Nom (Bld) Positive [facility] ABO A [facility] Rh Nom (Bld) Positive [facility] AMYLASEon 06-29-2024 Amylase [Catalytic activity/Vol] 14 U/L Low 28-100 [facility] Comment on above: Performed By: #### C BCA, 5643-2, 1798-8, CMP, 3040-3, 08302-7, PINR, 66679-2 #### [facility] ([id number]) [address], [address] [place] [address] APTTon 06-29-2024 aPTT Coag (PPP) [Time] 33 s [facility] Amylaseon 06-29-2024 Amylase [Catalytic activity/Vol] 14 U/L Low 28 - 100 U/L [facility] BASIC METABOLIC PANLon 06-29 Anion gap [Moles/Vol] 8 mmol/L Normal 5-15 [facility] Comment on above: Performed By: #### I 8XCA #### [facility] ([id number]) [address] [place] [address] Calcium [Mass/Vol] 7.6 mg/dL Low 8.5-10.[address] [facility] Comment on above: Performed By: #### I 8XCA #### [facility] ([id number]) [address] [place] [address] Chloride [Moles/Vol] 108 mmol/L Normal 98-109 [facility] Comment on above: Performed By: #### I 8XCA #### [facility] ([id number]) [address] [place] [address] CO2 [Moles/Vol] 23 mmol/L Normal 22-32 [facility] Comment on above: Performed By: #### I 8XCA #### [facility] ([id number]) [address] [place] [address] Creatinine [Mass/Vol] 1.57 mg/dL High 0.60-1.30 [facility] Comment on above: Result Comment: METH OD TRACEABLE TO IDMS STANDARD Performed By: #### I 8XCA #### [facility] ([id number]) [address] [place] [address] GFR/1.73 sq M.predicted among non-blacks MDRD (S/P/Bld) [Vol rate/Area] 45 mL/min/{1.73_m2} Low >59 Pr [facility] Comment on above: Result Comment: Reported eGFR is based on the CKD-EPI 2020 equation that does not use a race coefficient. Performed By: #### I 8XCA #### [facility] ([id number]) [address] [place] [address] Glucose [Mass/Vol] 111 mg/dL High 65-[address] [facility] Comment on above: Performed By: #### I 8XCA #### [facility] ([id number]) [address] [place] [address] Potassium [Moles/Vol] 3.7 mmol/L Normal 3.5-5.0 [facility] Comment on above: Performed By: #### I 8XCA #### [facility] ([id number]) [address] [place] [address] Sodium [Moles/Vol] 139 mmol/L Normal 134-[address] [facility] Comment on above: Performed By: #### I 8XCA #### [facility] ([id number]) [address] [place] [address] Urea nitrogen [Mass/Vol] 17 mg/dL Normal 5-27 [facility] Comment on above: Performed By: #### I 8XCA #### [facility] ([id number]) [address] [place] [address] Basic Metabolic Panelon 06-15 Anion gap [Moles/Vol] 8 mmol/L 5 - 15 mmol/L [facility] Calcium [Mass/Vol] 7.6 mg/dL Low 8.5 - 10. 5 mg/dL [facility] Chloride [Moles/Vol] 108 mmol/L 98 - 10 9 mmol/L [facility] CO2 [Moles/Vol] 23 mmol/L 22 - 32 mmol/L [facility] Creatinine [Mass/Vol] 1.57 mg/dL High 0.60 - 1.30 mg/dL [facility] Comment on above: METHOD TRACEABLE TO [facility] STANDARD eGFR (CKD-EPI)non-race dependent 45 Low - PINF [facility] Comment on above: Reported eGFR is based on the CKD-EPI 2020 equation that does not use a race coefficient. Glucose [Mass/Vol] 111 mg/dL High 65 - 99 mg/dL [facility] Interpretation and review of laboratory results Abnormal [facility] Potassium [Moles/Vol] 3.7 mmol/L 3.5 - 5.0 mmol/L [facility] Sodium [Moles/Vol] 139 mmol/L 134 - 146 mmol/L [facility] Urea nitrogen [Mass/Vol] 17 mg/dL 5 - 27 mg/dL [facility] CBC AND AUTO DIFFon 06-29-19 ABSOLUTE BASOPHIL 0.1 X10E9/L Normal 0.0-0.[address] [facility] Comment on above: Performed By: #### I 8XCA #### [facility] ([id number]) [address] [place] [address] ABSOLUTE NEUTROPHIL 10.1 X10E9/L High 1.5-6.6 [facility] Comment on above: Performed By: #### I 8XCA #### [facility] ([id number]) [address] [place] [address] Basophils/100 WBC (Bld) 0.4 % Normal [facility] Comment on above: Performed By: #### I 8XCA #### [facility] ([id number]) [address] [place] [address] Eosinophils (Bld) [#/Vol] 0.0 10*3/uL Normal 0.0-0.4 [facility] Comment on above: Performed By: #### I 8XCA #### [facility] ([id number]) [address] [place] [address] Eosinophils/100 WBC (Bld) 0.1 % Normal [facility] Comment on above: Performed By: #### I 8XCA #### [facility] ([id number]) [address] [place] [address] Erythrocyte distribution width (RBC) [Ratio] 14.7 % Normal 11.5-15.0 [facility] Comment on above: Performed By: #### I 8XCA #### [facility] ([id number]) [address] [place] [address] Hematocrit (Bld) [Volume fraction] 23.6 % Low 39-49 [facility] Comment on above: Performed By: #### I 8XCA #### [facility] ([id number]) [address] [place] [address] Hemoglobin (Bld) [Mass/Vol] 8.1 g/dL Low 13.0-17.0 [facility] Comment on above: Performed By: #### I 8XCA #### [facility] ([id number]) [address] [place] [address] Lymphocytes (Bld) [#/Vol] 0.6 10*3/uL Low 1.0-3.5 [facility] Comment on above: Performed By: #### I 8XCA #### [facility] ([id number]) [address] [place] [address] Lymphocytes/100 WBC (Bld) 4.8 % Normal [facility] Comment on above: Performed By: #### I 8XCA #### [facility] ([id number]) [address] [place] [address] MCH (RBC) [Entitic mass] 31.7 pg Normal 27-34 [facility] Comment on above: Performed By: #### I 8XCA #### [facility] ([id number]) [address] [place] [address] MCHC (RBC) [Mass/Vol] 34.1 g/dL Normal 32-36 [facility] Comment on above: Performed By: #### I 8XCA #### [facility] ([id number]) [address] [place] [address] MCV (RBC) [Entitic vol] 93 fL Normal 80-100 [facility] Comment on above: Performed By: #### I 8XCA #### [facility] ([id number]) [address] [place] [address] Monocytes (Bld) [#/Vol] 1.0 10*3/uL High 0-0.9 [facility] Comment on above: Performed By: #### I 8XCA #### [facility] ([id number]) [address] [place] [address] Monocytes/100 WBC (Bld) 8.2 % Normal [facility] Comment on above: Performed By: #### I 8XCA #### [facility] ([id number]) [address] [place] [address] Neutrophils/100 WBC (Bld) 86.5 % Normal [facility] Comment on above: Performed By: #### I 8XCA #### [facility] ([id number]) [address] [place] [address] Platelet mean volume (Bld) [Entitic vol] 9.0 fL Normal 7-12 [facility] Comment on above: Performed By: #### I 8XCA #### [facility] ([id number]) [address] [place] [address] Platelets (Bld) [#/Vol] 193 10*3/uL Normal 150-450 [facility] Comment on above: Performed By: #### I 8XCA #### [facility] ([id number]) [address] [place] [address] RBC COUNT 2.54 X10E12/L Low 4.10-5.70 [facility] Comment on above: Performed By: #### I 8XCA #### [facility] ([id number]) [address] [place] [address] WBC (Bld) [#/Vol] 11.7 10*3/uL High 4.0-11.0 [facility] Comment on above: Performed By: #### I 8XCA #### [facility] ([id number]) [address] [place] [address] ABSOLUTE BASOPHIL 0.0 X10E9/L Normal 0.0-0.[address] [facility] Comment on above: Performed By: #### C HERNANDEZ, 5643-2, 1797-12, CMP, 3040-3, 49207-5, PINR, 39337-9 #### [facility] ([id number]) [address] [place] [address] ABSOLUTE NEUTROPHIL 9.1 X10E9/L High 1.5-6.6 [facility] Comment on above: Performed By: #### C BCA, 5643-2, 1797-12, CMP, 3040-3, 33405-9, PINR, 35900-0 #### [facility] ([id number]) [address], [address] [place] [address] Basophils/100 WBC (Bld) 0.1 % Normal [facility] Comment on above: Performed By: #### C BCA, 5643-2, 1797-8, CMP, 3040-3, 80493-8, PINR, 48070-9 #### [facility] ([id number]) [address], [address] [place] [address] Eosinophils (Bld) [#/Vol] 0.0 10*3/uL Normal 0.0-0.4 [facility] Comment on above: Performed By: #### C BCA, 5643-2, 8, CMP, 3040-3, 96219-0, PINR, 81481-1 #### [facility] ([id number]) [address], [address] [place] [address] Eosinophils/100 WBC (Bld) 0.0 % Normal [facility] Comment on above: Performed By: #### C BCA, 5643-2, 8, CMP, 3040-3, 67666-7, PINR, 09065-1 #### [facility] ([id number]) [address] [facility] [facility] [address] [place] [address] Erythrocyte distribution width (RBC) [Ratio] 14.5 % Normal 11.5-15.0 [facility] Comment on above: Performed By: #### C BCA, 5643-2, 8, CMP, 3040-3, 96711-1, PINR, 60178-2 #### [facility] ([id number]) [address] [place] [address] Hematocrit (Bld) [Volume fraction] 20.6 % Low 39-49 [facility] Comment on above: Performed By: #### C BCA, 5643-2, 1797-8, CMP, 3040-3, 37011-0, PINR, 99053-5 #### [facility] ([id number]) [address], [address] [place] [address] Hemoglobin (Bld) [Mass/Vol] 6.9 g/dL Critically low 13.0-17.0 [facility] Comment on above: Performed By: #### C BCA, 5643-2, 1797-8, CMP, 3040-3, 97676-6, PINR, 70545-3 #### [facility] ([id number]) [address], [address] [place] [address] Lymphocytes (Bld) [#/Vol] 0.6 10*3/uL Low 1.0-3.5 [facility] Comment on above: Performed By: #### C BCA, 5643-2, 8, CMP, 3040-3, 70583-2, PINR, 72652-4 #### [facility] ([id number]) [address], [address] [place] [address] Lymphocytes/100 WBC (Bld) 5.3 % Normal [facility] Comment on above: Performed By: #### C BCA, 5643-2, 8, CMP, 3040-3, 39326-9, PINR, 32270-7 #### [facility] ([id number]) [address], [address] [place] [address] MCH (RBC) [Entitic mass] 31.4 pg Normal 27-34 [facility] Comment on above: Performed By: #### C BCA, 5643-2, 8, CMP, 3040-3, 52463-7, PINR, 73370-6 #### [facility] ([id number]) [address], [address] [place] [address] MCHC (RBC) [Mass/Vol] 33.4 g/dL Normal 32-36 [facility] Comment on above: Performed By: #### C BCA, 5643-2, 1797-8, CMP, 3040-3, 39461-6, PINR, 43653-5 #### [facility] ([id number]) [address] [place] [address] MCV (RBC) [Entitic vol] 94 fL Normal 80-100 [facility] Comment on above: Performed By: #### C BCA, 5643-2, 1797-8, CMP, 3040-3, 69346-6, PINR, 15687-7 #### [facility] ([id number]) [address] [address] Monocytes (Bld) [#/Vol] 0.9 10*3/uL Normal 0-0.9 [facility] Comment on above: Performed By: #### C BCA, 5643-2, 8, CMP, 3040-3, 66025-0, PINR, 92682-9 #### [facility] ([id number]) [address] [address] Monocytes/100 WBC (Bld) 8.6 % Normal [facility] Comment on above: Performed By: #### C BCA, 5643-2, 1797-12, CMP, 3040-3, 34246-6, PINR, 42611-4 #### [facility] ([id number]) [address] [address] Neutrophils/100 WBC (Bld) 86.0 % Normal [facility] Comment on above: Performed By: #### C BCA, 5643-2, 8, CMP, 3040-3, 59574-8, PINR, 53019-9 #### [facility] ([id number]) [address] [address] Platelet mean volume (Bld) [Entitic vol] 9.3 fL Normal 7-12 [facility] Comment on above: Performed By: #### C BCA, 5643-2, 1798-8, CMP, 3040-3, 20683-4, PINR, 07575-7 #### [facility] ([id number]) [address] [address] Platelets (Bld) [#/Vol] 186 10*3/uL Normal 150-450 [facility] Comment on above: Performed By: #### C BCA, 5643-2, 1797-8, CMP, 3040-3, 46969-6, PINR, 23962-3 #### [facility] ([id number]) [address] [address] RBC COUNT 2.19 X10E12/L Low 4.10-5.70 [facility] Comment on above: Performed By: #### C BCA, 5643-2, 1797-8, CMP, 3040-3, 39057-5, PINR, 58420-6 #### [facility] ([id number]) [address] [address] WBC (Bld) [#/Vol] 10.6 10*3/uL Normal 4.0-11.0 [facility] Comment on above: Performed By: #### C BCA, 5643-2, 1797-8, CMP, 3040-3, 96988-2, PINR, 48821-4 #### [facility] ([id number]) [address] [address] CBC auto differentialon 06-15 Basophils (Bld) [#/Vol] 0.1 10*3/uL [facility] Basophils/100 WBC (Bld) 0.4 % [facility] Eosinophils (Bld) [#/Vol] 0 10*3/uL [facility] Eosinophils/100 WBC (Bld) 0.1 % [facility] Erythrocyte distribution width (RBC) [Ratio] 14.7 % 11.5 - 15.0 % [facility] Hematocrit (Bld) [Volume fraction] 23.6 % Low 39 - 49 % [facility] Hemoglobin (Bld) [Mass/Vol] 8.1 g/dL Low 13.0 - 17.0 g/dL [facility] Interpretation and review of laboratory results Abnormal [facility] Lymphocytes (Bld) [#/Vol] 0.6 10*3/uL Low [facility] Lymphocytes/100 WBC (Bld) 4.8 % [facility] MCH (RBC) [Entitic mass] 31.7 pg 27 - [address] [facility] MCHC (RBC) [Mass/Vol] 34.1 g/dL 32 - 3 6 g/dL [facility] MCV (RBC) [Entitic vol] 93 fL 80 - [address] [facility] Monocytes (Bld) [#/Vol] 1 10*3/uL High [facility] Monocytes/100 WBC (Bld) 8.2 % [facility] Neutrophils (Bld) [#/Vol] 10.1 10*3/uL High [facility] Neutrophils/100 WBC (Bld) 86.5 % [facility] Platelet mean volume (Bld) [Entitic vol] 9 fL 7 - [address] [facility] Platelets (Bld) [#/Vol] 193 10*3/uL [facility] RBC (Bld) [#/Vol] 2.54 10*6/uL Low [facility] WBC corrected for nucl RBC Auto (Bld) [#/Vol] 11.[address] [facility] Basophils (Bld) [#/Vol] 0 10*3/uL [facility] Basophils/100 WBC (Bld) 0.1 % [facility] Eosinophils (Bld) [#/Vol] 0 10*3/uL [facility] Eosinophils/100 WBC (Bld) 0 % [facility] Erythrocyte distribution width (RBC) [Ratio] 14.5 % 11.5 - 15.0 % [facility] Hematocrit (Bld) [Volume fraction] 20.6 % Low 39 - 49 % [facility] Hemoglobin (Bld) [Mass/Vol] 6.9 g/dL Critically low 13.0 - 17.0 g/dL [facility] Interpretation and review of laboratory results Abnormal [facility] Lymphocytes (Bld) [#/Vol] 0.6 10*3/uL Low [facility] Lymphocytes/100 WBC (Bld) 5.3 % [facility] MCH (RBC) [Entitic mass] 31.4 pg 27 - [address] [facility] MCHC (RBC) [Mass/Vol] 33.4 g/dL 32 - 3 6 g/dL [facility] MCV (RBC) [Entitic vol] 94 fL 80 - [address] [facility] Monocytes (Bld) [#/Vol] 0.9 10*3/uL [facility] Monocytes/100 WBC (Bld) 8.6 % P [facility] Neutrophils (Bld) [#/Vol] 9.1 10*3/uL High [facility] Neutrophils/100 WBC (Bld) 86 % [facility] Platelet mean volume (Bld) [Entitic vol] 9.3 fL 7 - [address] [facility] Platelets (Bld) [#/Vol] 186 10*3/uL [facility] RBC (Bld) [#/Vol] 2.19 10*6/uL Low [facility] WBC corrected for nucl RBC Auto (Bld) [#/Vol] 10.[address] [facility] COMPREHENSIVE METABOLIC PANE Larry 06-29-2024 Albumin [Mass/Vol] 2.4 g/dL Low 3.2-5.[address] [facility] Comment on above: Performed By: #### C BCA, 5643-2, 8-8, CMP, 3040-3, 21564-7, PINR, 57166-7 #### [facility] ([id number]) [address] [place] [address] ALP [Catalytic activity/Vol] 63 U/L Normal 39-130 [facility] Comment on above: Performed By: #### C BCA, 5643-2, 1798-8, CMP, 3040-3, 55063-6, PINR, 55572-9 #### [facility] ([id number]) [address], [address] [place] [address] ALT [Catalytic activity/Vol] 9 U/L Normal 0-40 [facility] Comment on above: Performed By: #### C BCA, 5643-2, 1797-8, CMP, 3040-3, 45698-6, PINR, 91415-9 #### [facility] ([id number]) [address], [address] [place] [address] Anion gap [Moles/Vol] 8 mmol/L Normal 5-15 [facility] Comment on above: Performed By: #### C BCA, 5643-2, 1797-8, CMP, 3040-3, 16724-8, PINR, 68165-3 #### [facility] ([id number]) [address], [address] [place] [address] AST [Catalytic activity/Vol] 15 U/L Normal 0-41 [facility] Comment on above: Performed By: #### C BCA, 5643-2, 1797-8, CMP, 3040-3, 97716-2, PINR, 20224-9 #### [facility] ([id number]) [address], [address] [place] [address] Bilirubin [Mass/Vol] 0.8 mg/dL Normal 0.3-1.2 [facility] Comment on above: Performed By: #### C BCA, 5643-2, 1797-8, CMP, 3040-3, 53609-3, PINR, 40335-8 #### [facility] ([id number]) [address], [address] [place] [address] Calcium [Mass/Vol] 6.9 mg/dL Critically low 8.5-10.5 [facility] Comment on above: Performed By: #### C BCA, 5643-2, 1797-8, CMP, 3040-3, 20429-2, PINR, 24125-0 #### [facility] ([id number]) [address], [address] [place] [address] Chloride [Moles/Vol] 111 mmol/L High 98-109 [facility] Comment on above: Performed By: #### C BCA, 5643-2, 1797-8, CMP, 3040-3, 18343-5, PINR, 79010-1 #### [facility] ([id number]) [address], [address] [place] [address] CO2 [Moles/Vol] 21 mmol/L Low 22-32 [facility] Comment on above: Performed By: #### C BCA, 5643-2, 1797-8, CMP, 3040-3, 08005-9, PINR, 70441-1 #### [facility] ([id number]) [address], [address] [place] [address] Creatinine [Mass/Vol] 1.46 mg/dL High 0.60-1.30 [facility] Comment on above: Result Comment: METH OD TRACEABLE TO IDMS STANDARD Performed By: #### C BCA, 5643-2, 8, CMP, 3040-3, 12866-0, PINR, 25760-5 #### [facility] ([id number]) [address], [address] [place] [address] GFR/1.73 sq M.predicted among non-blacks MDRD (S/P/Bld) [Vol rate/Area] 49 mL/min/{1.73_m2} Low >59 Pr [facility] Comment on above: Result Comment: Reported eGFR is based on the CKD-EPI 2020 equation that does not use a race coefficient. Performed By: #### C BCA, 5643-2, 1797-8, CMP, 3040-3, 46137-1, PINR, 35204-0 #### [facility] ([id number]) [address], [address] [place] [address] Glucose [Mass/Vol] 105 mg/dL High 65-[address] [facility] Comment on above: Performed By: #### C BCA, 5643-2, 1797-8, CMP, 3040-3, 00734-1, PINR, 13089-7 #### [facility] ([id number]) [address], [address] [place] [address] Potassium [Moles/Vol] 3.6 mmol/L Normal 3.5-5.0 [facility] Comment on above: Performed By: #### C BCA, 5643-2, 1797-8, CMP, 3040-3, 34381-8, PINR, 39104-7 #### [facility] ([id number]) [address], [address] [place] [address] Protein [Mass/Vol] 4.5 g/dL Low 6.0-8.[address] [facility] Comment on above: Performed By: #### C BCA, 5643-2, 1797-8, CMP, 3040-3, 32703-7, PINR, 69594-2 #### [facility] ([id number]) [address], [address] [place] [address] Sodium [Moles/Vol] 140 mmol/L Normal 134-[address] [facility] Comment on above: Performed By: #### C BCA, 5643-2, 1797-8, CMP, 3040-3, 25962-4, PINR, 61482-2 #### [facility] ([id number]) [address], [address] [place] [address] Urea nitrogen [Mass/Vol] 16 mg/dL Normal 5-27 [facility] Comment on above: Performed By: #### C BCA, 5643-2, 1797-8, CMP, 3040-3, 16366-2, PINR, 61033-3 #### [facility] ([id number]) [address], [address] [place] [address] Calcium.ionized (Bld) [Mass/ Vol]on 06-29-2024 IONIZED CALCIUM 4.5 mg/dL Normal 4.5-5.3 [facility] Comment on above: Performed By: #### I 8XCA #### [facility] ([id number]) [address] [place] [address] Comprehensive metabolic pane larry 06-29-2024 Albumin [Mass/Vol] 2.4 g/dL Low 3.2 - 5.3 g/dL [facility] ALP [Catalytic activity/Vol] 63 U/L 39 - 130 U/L [facility] ALT No additional P-5'-P [Catalytic activity/Vol] 9 U/L 0 - 40 U/L [facility] Anion gap [Moles/Vol] 8 mmol/L 5 - 15 mmol/L [facility] AST [Catalytic activity/Vol] 15 U/L 0 - 41 U/L [facility] Bilirubin [Mass/Vol] 0.8 mg/dL 0.3 - 1 .2 mg/dL [facility] Calcium [Mass/Vol] 6.9 mg/dL Critically low 8.5 - 1 0.5 mg/dL [facility] Chloride [Moles/Vol] 111 mmol/L High 98 - 10 9 mmol/L [facility] CO2 [Moles/Vol] 21 mmol/L Low 22 - 32 mmol/L [facility] Creatinine [Mass/Vol] 1.46 mg/dL High 0.60 - 1.30 mg/dL [facility] Comment on above: METHOD TRACEABLE TO [facility] STANDARD eGFR (CKD-EPI)non-race dependent 49 Low - PINF [facility] Comment on above: Reported eGFR is based on the CKD-EPI 2020 equation that does not use a race coefficient. Glucose [Mass/Vol] 105 mg/dL High 65 - 99 mg/dL [facility] Interpretation and review of laboratory results Abnormal [facility] Potassium [Moles/Vol] 3.6 mmol/L 3.5 - 5.0 mmol/L [facility] Protein [Mass/Vol] 4.5 g/dL Low 6.0 - 8.0 g/dL [facility] Sodium [Moles/Vol] 140 mmol/L 134 - 146 mmol/L [facility] Urea nitrogen [Mass/Vol] 16 mg/dL 5 - 27 mg/dL [facility] Crossmatch RBC:on 06-29-2024 BB Type Barcode 6200 [facility] Blood component type [id number] [facility] Expiration Date [facility] Status of unit TRANSFUSED [facility] Unit ABO A [facility] Unit number [id number] [facility] Unit RH Positive [facility] BB Type Barcode 6200 [facility] Blood component type [id number] [facility] Expiration Date [facility] Status of unit [facility]ED [facility] Unit ABO A [facility] Unit [facility] [id number] [facility] Unit RH Positive [facility] BB Type Barcode 6200 [facility] Blood component type [id number] [facility] Crossmatch Compatible [facility] Expiration Date [facility] Status of unit SELECTED [facility] Unit ABO A [facility] Unit number [id number] [facility] Unit RH Positive [facility] Expiration Date [id number] [facility] Unit number [id number] [facility] Unit number [id number] [facility] Unit number [id number] [facility] BB Type Barcode [address] [facility] Blood component type [id number] [facility] Expiration Date [facility] Status of unit ISSUED [facility] Unit ABO O [facility] Unit number [id number] [facility] Unit RH Positive [facility] Unit number [id number] [facility] Unit number [id number] [facility] BB Type Barcode 5100 [facility] Blood component type [id number] [facility] Crossmatch Compatible [facility] Expiration Date [id number] [facility] Status of unit SELECTED [facility] Unit ABO O [facility] Unit number [id number] [facility] Unit RH Positive [facility] BB Type Barcode 5100 [facility] Blood component type [id number] [facility] Crossmatch Compatible [facility] Expiration Date 603492459822 [facility] Status of unit SELECTED [facility] Unit ABO O [facility] Unit number [id number] [facility] Unit RH Positive [facility] BB Type Barcode 5100 [facility] Blood component type [id number] [facility] Crossmatch Compatible [facility] Expiration Date [id number] [facility] Status of unit SELECTED [facility] Unit ABO O [facility] Unit number [id number] [facility] Unit RH Positive [facility] Crossmatch RBC:Number of Uni ts: 1on 06-29-2024 BB Type Barcode [address] [facility] Blood component type [id number] [facility] Crossmatch Compatible [facility] Expiration Date [id number] [facility] Status of unit TRANSFUSED [facility] Unit ABO A [facility] Unit number [id number] [facility] Unit RH Positive [facility] BB Type Barcode [address] [facility] Blood component type [id number] [facility] Crossmatch Compatible [facility] Expiration Date [id number] [facility] Status of unit TRANSFUSED [facility] Unit ABO O [facility] Unit number [id number] [facility] Unit RH Positive [facility] DRUG SCREEN, URINEon 06-29- 025 AMPHETAMINE/METHAMP Negative Normal NEG [facility] Comment on above: Result Comment: AMPH /METH screening cut off = 1000 ng/mL Performed By: #### I 8XCA #### [facility] ([address] [place] [address]) [address] [place] [address] BARBITURATES Negative Normal NEG [facility] Comment on above: Result Comment: Lilia iturates screening cut off value = 200 ng/mL Performed By: #### I 8XCA #### [facility] ([address] [place] [address]) [address] [place] [address] BENZODIAZEPINES Negative Normal NEG [facility] Comment on above: Result Comment: Danish odiazepines screening cut off value = 200 ng/mL Performed By: #### I 8XCA #### [facility] ([address] [place] [address]) [address] [place] [address] CANNABINOIDS Negative Normal NEG [facility] Comment on above: Result Comment: Dora abinoids/THC screening cut off value = 50 ng/mL Performed By: #### I 8XCA #### [facility] ([address] [place] [address]) [address] [place] [address] COCAINE METABOLITE Negative Normal NEG [facility] Comment on above: Result Comment: Coca ine screening cut off value = 300 ng/mL Performed By: #### I 8XCA #### [facility] ([address] [place] [address]) [address] [place] [address] ECSTASY Negative Normal NEG [facility] Comment on above: Result Comment: Ecst asy screening cut off value = 500 ng/mL This report is intended for use in clinical monitoring or management of patients. Performed By: #### I 8XCA #### [facility] ([address] [place] [address]) [address] [place] [address] METHADONE Negative Normal NEG [facility] Comment on above: Result Comment: Meth adone screening cut off value = 300 ng/mL. Performed By: #### I 8XCA #### [facility] ([address] [place] [address]) [address] [place] [address] OPIATES Negative Normal NEG [facility] Comment on above: Result Comment: Opia vasiliy screening cut off value = 300 ng/mL NOTE: This test is used for the detection of codeine, hydrocodone (>1000 ng/mL), morphine and hydromorphone (>900 ng/mL) in urine. Performed By: #### I 8XCA #### [facility] ([id number]) [address] [place] [address] OXYCODONE Negative Normal NEG [facility] Comment on above: Result Comment: Oxyc odone screening cut off value = 300 ng/mL NOTE: This test is used for the detection of oxycodone and oxymorphone in urine. Performed By: #### I 8XCA #### [facility] ([id number]) [address] [place] [address] PHENCYCLIDINE Negative Normal [facility] Comment on above: Result Comment: Phen cyclidine screening cut off value = 25 ng/mL Performed By: #### I 8XCA #### [facility] ([id number]) [address] [place] [address] Drug Screen, Urineon 025 Amphetamines Screen method >1000 ng/mL Ql (U) Negative Negative^N [facility] Comment on above: AMPH/METH screening cut off = 1000 ng/mL Barbiturates Screen Ql (U) Negative N egative^N [facility] Comment on above: Barbiturates screeni ng cut off value = 200 ng/mL Benzodiazepines Ql (U) Negative Negat gabriela^N [facility] Comment on above: Benzodiazepines scre ening cut off value = 200 ng/mL Cocaine Ql (U) Negative Negative^N [facility] Comment on above: Cocaine screening cu t off value = 300 ng/mL Methadone Screen Ql (U) Negative Nega tive^N [facility] Comment on above: Methadone screening cut off value = 300 ng/mL. Methylenedioxymethamphetam ine Screen Ql (U) Negative Negative^N [facility] Comment on above: Ecstasy screening cu t off value = 500 ng/mL This report is intended for use in clinical monitoring or management of patients. Opiates Screen Ql (U) Negative Negati ve^N [facility] Comment on above: Opiates screening cu t off value = 300 ng/mL NOTE: This test is used for the detection of codeine, hydrocodone (>1000 ng/mL), morphine and hydromorphone (>900 ng/mL) in urine. oxyCODONE Ql (U) Negative Negative^N [facility] Comment on above: Oxycodone screening cut off value = 300 ng/mL NOTE: This test is used for the detection of oxycodone and oxymorphone in urine. Phencyclidine Screen method >25 ng/mL Ql (U) Negative Negative^N [facility] Comment on above: Phencyclidine screen ing cut off value = 25 ng/mL Tetrahydrocannabinol Screen method >50 ng/mL Ql (U) Negative Negative^N [facility] Comment on above: Cannabinoids/THC scr eening cut off value = 50 ng/mL [facility] ETHANOLon 06-29-2024 Ethanol [Mass/Vol] mg/dL Normal 0.00-0.[address] [facility] Comment on above: Result Comment: This report is intended for use in clinical monitoring or management of patients. Performed By: #### C BCA, 5643-2, 1798-8, CMP, 3040-3, 45889-1, PINR, 79540-1 #### [facility] ([id number]) [address] [place] [address], [address] [place] [address] Ethanolon 06-29-2024 Ethanol [Mass/Vol] g/dL 0.00 - 0.08 g/dL [facility] Comment on above: This report is intended for use in clinical monitoring or management of patients. Fibrinogenon 06-29-2024 Fibrinogen Coagulation.derived (PPP) [Mass/Vol] 501 mg/dL High 190 - 480 mg/dL [facility] Fibrinogen Coagulation.deriv ed (PPP) [Mass/Vol]on 06-29-2024 FIBRINOGEN 501 mg/dL High 190-480 [facility] Comment on above: Performed By: #### C HERNANDEZ, 5643-2, 8-8, CMP, 3040-3, 10332-9, PINR, 43295-5 #### [facility] ([id number]) [address] [place] [address] Glucose Glucometer (BldC) [M ass/Vol]on 06-29-2024 Glucose [Mass/Vol] 75 mg/dL 65 - 99 mg/dL [facility] Glucose [Mass/Vol] 75 mg/dL Normal 65-[address] [facility] Glucose [Mass/Vol] 78 mg/dL 65 - 99 mg/dL [facility] Glucose [Mass/Vol] 78 mg/dL Normal 65-[address] [facility] Glucose [Mass/Vol] 108 mg/dL High 65 - 99 mg/dL [facility] Interpretation and review of laboratory results Abnormal [facility] Glucose [Mass/Vol] 108 mg/dL High 65-[address] [facility] HGBon 06-29-2024 Hematocrit (Bld) [Volume fraction] 26.1 % Low 39-49 [facility] Comment on above: Performed By: #### C HERNANDEZ, 5643-2, 1797-8, CMP, 3040-3, 78135-6, PINR, 27473-5 #### [facility] ([id number]) [address], [address] [place] [address] Hemoglobin (Bld) [Mass/Vol] 8.8 g/dL Low 13.0-17.0 [facility] Comment on above: Performed By: #### C HERNANDEZ, 5643-2, 8-8, CMP, 3040-3, 88145-5, PINR, 63525-5 #### [facility] ([id number]) [address], [address] [place] [address] Hematocrit (Bld) [Volume fraction] 26.8 % Low 39-49 [facility] Comment on above: Performed By: #### C BCA, 5643-2, 1797-8, CMP, 3040-3, 54846-4, PINR, 89343-2 #### [facility] ([id number]) [address], [address] [place] [address] Hemoglobin (Bld) [Mass/Vol] 9.4 g/dL Low 13.0-17.0 [facility] Comment on above: Performed By: #### C BCA, 5643-2, 1797-8, CMP, 3040-3, 90955-9, PINR, 38914-9 #### [facility] ([id number]) [address], [address] [place] [address] Hematocrit (Bld) [Volume fraction] 24.1 % Low 39-49 [facility] Comment on above: Performed By: #### C BCA, 5643-2, 8, CMP, 3040-3, 80306-9, PINR, 02214-9 #### [facility] ([id number]) [address], [address] [place] [address] Hemoglobin (Bld) [Mass/Vol] 7.9 g/dL Low 13.0-17.0 [facility] Comment on above: Performed By: #### C BCA, 5643-2, 8, CMP, 3040-3, 62647-9, PINR, 61974-4 #### [facility] ([id number]) [address], [address] [place] [address] HGB A1C (GLYCO-HGB)on 2024 Glucose [Mass/Vol] 114 mg/dL Normal [facility] Comment on above: Performed By: #### C BCA, 5643-2, 1797-8, CMP, 3040-3, 02033-0, PINR, 57615-1 #### [facility] ([id number]) [address], [address] [place] [address] HbA1c (Bld) [Mass fraction] 5.6 % Normal 4.4-5.6 [facility] Comment on above: Result Comment: NOTE ADA Guidelines Result HgbA1c Normal : less than 5.7 % Prediabetes : 5.7 % to 6.4 % Diabetes : > 6.4 % Use with caution in patients with abnormal hemoglobin variants as the half-life of red blood cells and in vivo glycation rates are affected. Performed By: #### C BCA, 5643-2, 1798-8, CMP, 3040-3, 47109-1, PINR, 32790-6 #### [facility] ([id number]) [address] [place] [address] Hemoglobin A1con 06-29-2024 Average glucose Estimated from glycated hemoglobin (Bld) [Mass/Vol] 114 mg/dL [facility] HbA1c (Bld) [Mass fraction] 5.6 % 4.4 - 5.6 % [facility] Comment on above: NOTE ADA Guidelines Result HgbA1c Normal : less than 5.7 % Prediabetes : 5.7 % to 6.4 % Diabetes : > 6.4 % Use with caution in patients with abnormal hemoglobin variants as the half-life of red blood cells and in vivo glycation rates are affected. [facility] Hemoglobin and hematocrit, b loodon 06-29-2024 Hematocrit (Bld) [Volume fraction] 26.1 % Low 39 - 49 % [facility] Hemoglobin (Bld) [Mass/Vol] 8.8 g/dL Low 13.0 - 17.0 g/dL [facility] Interpretation and review of laboratory results Abnormal [facility] Hematocrit (Bld) [Volume fraction] 26.8 % Low 39 - 49 % [facility] Hemoglobin (Bld) [Mass/Vol] 9.4 g/dL Low 13.0 - 17.0 g/dL [facility] Interpretation and review of laboratory results Abnormal [facility] Hematocrit (Bld) [Volume fraction] 24.1 % Low 39 - 49 % [facility] Hemoglobin (Bld) [Mass/Vol] 7.9 g/dL Low 13.0 - 17.0 g/dL [facility] Interpretation and review of laboratory results Abnormal [facility] Ionized calciumon 06-29-2024 Calcium.ionized (Bld) [Mass/Vol] 4.5 mg/dL 4.5 - 5.3 mg/dL [facility] Ionized magnesiumon 06-29-19 25 Magnesium Ionized ISE (Bld) [Moles/Vol] 0.52 mmol/L 0.45 - 0.74 mmol/L [facility] Comment on above: NEW REFERENCE RANGE LIPASEon 06-29-2024 Lipase [Catalytic activity/Vol] 8 U/L Low 11-82 [facility] Comment on above: Performed By: #### C BCA, 5643-2, 1798-8, CMP, 3040-3, 98480-2, PINR, 85445-8 #### [facility] ([id number]) [address] [place] [address] Lactate (P rosanne) [Moles/Vol]o n 06-29-2024 [facility] LACTATE W/REFLEX 0.7 mmol/L Normal 0.4-2.0 [facility] Comment on above: Result Comment: Result did not trigger repeat Lactate, re-order if needed. Performed By: #### I 8XCA #### [facility] ([id number]) [address] [place] [address] Lactate w/ Reflexon 06-29-19 25 Lactate (P rosanne) [Moles/Vol] 0.7 mmol/L 0.4 - 2.0 mmol/L [facility] Comment on above: Result did not trigger repeat Lactate, re-order if needed. Lipaseon 06-29-2024 Lipase [Catalytic activity/Vol] 8 U/L Low 11 - 82 U/L [facility] Magnesium Ionized ISE (Bld) [Moles/Vol]on 06-29-2024 Magnesium [Moles/Vol] 0.52 mmol/L Normal 0.45-0.74 [facility] Comment on above: Result Comment: NEW REFERENCE RANGE Performed By: #### I 8XCA #### [facility] ([id number]) [address] [place] [address] Natriuretic peptide B [Mass/ Vol]on 06-29-2024 Interpretation and review of laboratory results Abnormal [facility] Natriuretic peptide B (Bld) [Mass/Vol] 224 pg/mL High NINF - 100.0 pg/mL [facility] Natriuretic peptide B (Bld) [Mass/Vol] 224 pg/mL High <100.0 [facility] Comment on above: Performed By: #### I 8XCA #### [facility] ([id number]) [address] [place] [address] No Panel Informationon 06-[address] [facility] BB Type Barcode 5100 [facility] Blood component type [id number] [facility] Expiration Date [facility] Status of unit /RELEASED [facility] Unit ABO O [facility] Unit RH Positive [facility] BB Type Barcode 5100 [facility] Blood component type [id number] [facility] Expiration Date [facility] Status of unit ISSUED [facility] Unit ABO O [facility] Unit RH Positive [facility] Interpretation and review of laboratory results Abnormal [facility] Interpretation and review of laboratory results Abnormal [facility] PHOSPHORUSon 06-29-2024 Phosphate [Mass/Vol] 3.3 mg/dL Normal 2.4-4.9 [facility] Comment on above: Performed By: #### I 8XCA #### [facility] ([id number]) [address] [place] [address] PLATELET FUNCTIONon 06-29-19 25 COLLAGEN/ADP 162 sec High 0-114 [facility] Comment on above: Performed By: #### C BCA, 5643-2, 1798-8, CMP, 3040-3, 77445-0, PINR, 44878-3 #### [facility] ([id number]) [address], [address] [place] [address] COLLAGEN/EPINEPHRINE 116 sec Normal 0-179 [facility] Comment on above: Performed By: #### C BCA, 5643-2, 1798-8, CMP, 3040-3, 57540-4, PINR, 75465-0 #### [facility] ([id number]) [address], [address] [place] [address] PFA INTERP This pattern is most commonly seen in patients Normal [facility] Comment on above: Result Comment: with von Willebrand disease or congenital platelet defects. However, thrombocytopenia (platelet count <100,000), anemia(HCT<30%), cardiovascular or renal disease may give abnormal results not related to an inherent platelet function abnormality. Futher platelet function studies may be indicated. Performed By: #### C BCA, 5643-2, 1798-8, CMP, 3040-3, 22355-0, PINR, 89854-1 #### [facility] ([id number]) [address] [place] [address] POC CHEM7 W/ HCTon 5 Chloride [Moles/Vol] 107 mmol/L Normal 98-109 [facility] Comment on above: Performed By: #### I 8XCA #### [facility] ([id number]) [address] [place] [address] CO2 [Moles/Vol] 21 mmol/L Low 22-32 [facility] Comment on above: Performed By: #### I 8XCA #### [facility] ([id number]) [address] [place] [address] Creatinine [Mass/Vol] 1.7 mg/dL High 0.7-1.2 [facility] Comment on above: Result Comment: METH OD TRACEABLE TO IDMS STANDARD Performed By: #### I 8XCA #### [facility] ([id number]) [address] [place] [address] GFR/1.73 sq M.predicted among non-blacks MDRD (S/P/Bld) [Vol rate/Area] 41 mL/min/{1.73_m2} Low >59 Pr [facility] Comment on above: Result Comment: Reported eGFR is based on the CKD-EPI 2020 equation that does not use a race coefficient. Performed By: #### I 8XCA #### [facility] ([id number]) [address] [place] [address] Glucose [Mass/Vol] 103 mg/dL High 65-[address] [facility] Comment on above: Performed By: #### I 8XCA #### [facility] ([id number]) [address] [place] [address] Hematocrit (Bld) [Volume fraction] 20 % Low 39-49 [facility] Comment on above: Performed By: #### I 8XCA #### [facility] ([id number]) [address] [place] [address] Potassium [Moles/Vol] 3.5 mmol/L Normal 3.5-5.0 [facility] Comment on above: Performed By: #### I 8XCA #### [facility] ([id number]) [address] [place] [address] Sodium [Moles/Vol] 143 mmol/L Normal 134-[address] [facility] Comment on above: Performed By: #### I 8XCA #### [facility] ([id number]) [address] [place] [address] Urea nitrogen [Mass/Vol] 14 mg/dL Normal 6-27 [facility] Comment on above: Performed By: #### I 8XCA #### [facility] ([id number]) [address] [place] [address] POCT Electrolytes w/ BUN, Cr eat, Gluc, Hematocriton 06-29-2024 Chloride [Moles/Vol] 107 mmol/L 98 - 10 9 mmol/L [facility] CO2 [Moles/Vol] 21 mmol/L Low 22 - 32 mmol/L [facility] Creatinine [Mass/Vol] 1.7 mg/dL High 0.7 - 1.2 mg/dL [facility] Comment on above: METHOD TRACEABLE TO [facility] STANDARD eGFR (CKD-EPI)non-race dependent 41 Low - PINF [facility] Comment on above: Reported eGFR is based on the CKD-EPI 2020 equation that does not use a race coefficient. Glucose [Mass/Vol] 103 mg/dL High 65 - 99 mg/dL [facility] Hematocrit (Bld) [Volume fraction] 20 % Low 39 - 49 % [facility] Interpretation and review of laboratory results Abnormal [facility] Potassium [Moles/Vol] 3.5 mmol/L 3.5 - 5.0 mmol/L [facility] Sodium [Moles/Vol] 143 mmol/L 134 - 146 mmol/L [facility] Urea nitrogen [Mass/Vol] 14 mg/dL 6 - 27 mg/dL [facility] PROTIME AND INRon 06-29-2024 INR Coag (PPP) [Relative time] 1.6 {INR} High 0.8-1.1 [facility] Comment on above: Performed By: #### C BCA, 5643-2, 1798-8, CMP, 3040-3, 01771-6, PINR, 49333-8 #### [facility] ([id number]) [address], [address] [place] [address] PT Coag (PPP) [Time] 18.1 s High 9.8-13.2 [facility] Comment on above: Performed By: #### C BCA, 5643-2, 1798-8, CMP, 3040-3, 15127-6, PINR, 72660-4 #### [facility] ([id number]) [address] [place] [address] Phosphoruson 06-29-2024 Phosphate [Mass/Vol] 3.3 mg/dL 2.4 - 4 .9 mg/dL [facility] Platelet function teston Interpretation and review of laboratory results Abnormal [facility] Platelet function (closure time) collagen+ADP induced (Bld) [Time] 162 High [facility] Platelet function (closure time) collagen+EPINEPHrine induced (Bld) [Time] 116 [facility] Platelet function (closure time) Renaldo (Bld) [Interp] This pattern is most commonly seen in patients [facility] Comment on above: with von Willebrand disease or congenital platelet defects. However, thrombocytopenia (platelet count <100,000), anemia(HCT<30%), cardiovascular or renal disease may give abnormal results not related to an inherent platelet function abnormality. Futher platelet function studies may be indicated. [facility] Protime & INRon 06-29-2024 INR Coag (PPP) [Relative time] 1.6 {INR} High [facility] PT Coag (PPP) [Time] 18.1 s High [facility] Type and screen(includes ind irect zoie)on 06-29-2024 ABO A [facility] Rh Nom (Bld) Positive [facility] URINALYSISon 06-29-2024 Bilirubin Ql (U) Negative Normal NEG [facility] Comment on above: Performed By: #### I 8XCA #### [facility] ([id number]) [address] [place] [address] BLOOD/HGB Large Abnormal NEG [facility] Comment on above: Performed By: #### I 8XCA #### [facility] ([id number]) [address] [place] [address] Color (U) ALISSA Abnormal YELLOW [facility] Comment on above: Performed By: #### I 8XCA #### [facility] ([id number]) [address] [place] [address] Glucose Ql (U) >1000 Abnormal NEG [facility] Comment on above: Performed By: #### I 8XCA #### [facility] ([id number]) [address] [place] [address] Ketones Ql (U) Negative Normal NEG [facility] Comment on above: Performed By: #### I 8XCA #### [facility] ([id number]) [address] [place] [address] Leukocyte esterase Test strip Ql (U) Negative Normal NEG [facility] Comment on above: Result Comment: HIGH CONCENTRATIONS OF GLUCOSE MAY DECREASE THE REACTIVITY OF THE DIPSTICK LEUKOCYTE TEST PAD. Performed By: #### I 8XCA #### [facility] ([id number]) [address] [place] [address] MUCOUS PRESENT Abnormal NONE [facility] Comment on above: Performed By: #### I 8XCA #### [facility] ([id number]) [address] [place] [address] Nitrite Ql (U) Negative Normal NEG [facility] Comment on above: Performed By: #### I 8XCA #### [facility] ([id number]) [address] [place] [address] pH (U) 5.5 [pH] Normal 5.0-8.5 [facility] Comment on above: Performed By: #### I 8XCA #### [facility] ([id number]) [address] [place] [address] Protein Ql (U) 50 mg/dL Abnormal NEG [facility] Comment on above: Performed By: #### I 8XCA #### [facility] ([id number]) [address] [place] [address] R.B.CELLS >720 High 0-5 [facility] Comment on above: Performed By: #### I 8XCA #### [facility] ([id number]) [address] [place] [address] Specific gravity (U) [Rel density] 1.015 Normal 1.003-1.03 5 [facility] Comment on above: Performed By: #### I 8XCA #### [facility] ([id number]) [address] [place] [address] SQUAMOUS EPITHELIUM 1 /hpf Normal 0-5 [facility] Comment on above: Performed By: #### I 8XCA #### [facility] ([id number]) [address] [place] [address] TURBIDITY CLEAR Normal CLEAR [facility] Comment on above: Performed By: #### I 8XCA #### [facility] ([id number]) [address] [place] [address] Urinalysis dipstick W Reflex Microscopic panel (U) URINE RECEIVED WITHOUT PRESERVATIVE-DELAYS IN TRANSPORT MAY AFFECT RESULTS.INTERPRET WITH CAUTION AND CLINICAL CORRELATION IS RECOMMENDED. Normal [facility] Comment on above: Performed By: #### I 8XCA #### [facility] ([id number]) [address] [place] [address] Urobilinogen (U) [Mass/Vol] mg/dL Normal <1.1 [facility] Comment on above: Performed By: #### I 8XCA #### [facility] ([id number]) [address] [place] [address] W.B.CELLS 2 /hpf Normal 0-5 [facility] Comment on above: Performed By: #### I 8XCA #### [facility] ([id number]) [address] [place] [address] URINE CULTUREon 06-29-2024 Bacteria identified Cx Nom (U) SPECIMEN NOTES URINE RECEIVED WITHOUT PRESERVATIVE CULTURE RESULTS NO GROWTH AT <1000 CFU/mL Normal [facility] Comment on above: Performed By: #### C BCA, 5643-2, 1798-8, CMP, 3040-3, 85908-6, PINR, 92877-3 #### [facility] ([id number]) [address] [place] [address] Urinalysison 06-29-2024 Bilirubin Ql (U) Negative Negative^N egative [facility] Color (U) ALISSA Abnormal YELLOW^YEL LOW [facility] Epithelial cells Auto (Urine sed) [#/Area] [address] [facility] Glucose (U) [Mass/Vol] mg/dL Abnormal Negat gabriela^N egative mg/dL [facility] Hemoglobin Auto test strip Ql (U) Large Abnormal Negative^N egative [facility] Interpretation and review of laboratory results Abnormal [facility] Ketones (U) [Mass/Vol] Negative Negat gabriela^N egative mg/dL [facility] Leukocyte esterase Auto test strip Ql (U) Negative Negative^N egative [facility] Comment on above: HIGH CONCENTRATIONS OF GLUCOSE MAY DECREASE THE REACTIVITY OF THE DIPSTICK LEUKOCYTE TEST PAD. Mucus Ql (Urine sed) PRESENT Abnormal NONE^NONE [facility] Nitrite Auto test strip Ql (U) Negative Negative^N egative [facility] pH (U) 5.5 [pH] 5.0 - 8.[address] [facility] Protein (U) [Mass/Vol] 50 mg/dL Abnormal Negat gabriela^N egative [facility] RBC Auto (Urine sed) [#/Area] High [facility] Specific gravity Refractometry automated (U) [Rel density] 1.015 1.003 - 1.[address] [facility] Turbidity Ql (U) CLEAR CLEAR^OMI R [facility] Urinalysis microscopic panel Auto (Urine sed) [#/Area] URINE RECEIVED WITHOUT PRESERVATIVE-DELAYS IN TRANSPORT MAY AFFECT RESULTS.INTERPRET WITH CAUTION AND CLINICAL CORRELATION IS RECOMMENDED. [facility] Urobilinogen Qn (U) NINF [facility] WBC Auto (Urine sed) [#/Area] 2 [facility] XR CHEST 1 VWon 06-29-2024 XR CHEST [...] Cueto MD on 06/29/2024 1:47 AM Normal [facility] XR Chest Single viewon 06-29 HISTORY: Pain, trauma COMPARISON: None FINDINGS: AP supine view of the chest was performed. Left-sided pacemaker with intact leads. Left basilar atelectasis. No overt vascular congestion. No significant pleural effusion or pneumothorax. Osseous structures are grossly intact. IMPRESSION: * No acute abnormality. 7 Finalized by Ricardo Cueto MD on 06/29/2024 1:47 AM [facility] Ricardo Cueto MD - 06/29/2024 HISTORY: Pain, trauma COMPARISON: None FINDINGS: AP supine view of the chest was performed. Left-sided pacemaker with intact leads. Left basilar atelectasis. No overt vascular congestion. No significant pleural effusion or pneumothorax. Osseous structures are grossly intact. IMPRESSION: * No acute abnormality. 7 Finalized by Ricardo Cueto MD on 06/29/2024 1:47 AM [facility] Radiology Study observation (narrative) [facility] XR Chest Single viewOrdered By: Ricardo Cueto on 06-29-2024 [facility] Work Phone: aPTT Coag (PPP) [Time]on aPTT Coag (Bld) [Time] 33 s Normal 26-37 Pr [facility] Comment on above: Performed By: #### C BCA, 5643-2, 1798-8, CMP, 3040-3, 18698-4, PINR, 67769-3 #### [facility] ([id number]) [address], [address] [place] [address] BLOOD CULTUREon 06-28-2024 Bacteria identified Aer cx Nom (Bld) CULTURE RESULTS NO GROWTH 5 DAYS Normal [facility] Bacteria identified Aer cx Nom (Bld) CULTURE RESULTS NO GROWTH 5 DAYS Normal [facility] CBC AND AUTO DIFFon 06-28-19 ABSOLUTE BASOPHIL 0.0 X10E9/L Normal 0.0-0.2 [facility] Comment on above: Performed By: #### C BCA, PINR, 34719-3, CMP, 17499-5, 50910-4 #### [facility] ([id number]) [address] [place] [address] #### 81752-9 #### [facility] ([id number]) [address], [address] [place] [address] ABSOLUTE NEUTROPHIL 12.3 X10E9/L High 1.5-6.[address] [facility] Comment on above: Performed By: #### C BCA, PINR, 57880-3, CMP, 84263-9, 61536-3 #### [facility] ([id number]) [address] [place] [address] #### 22679-6 #### [facility] ([id number]) [address], [address] [place] [address] Basophils/100 WBC (Bld) 0.3 % Normal [facility] Comment on above: Performed By: #### C BCA, PINR, 41366-7, CMP, 73501-8, 12681-9 #### [facility] ([id number]) [address] [place] [address] #### 21335-3 #### [facility] ([id number]) [address], [address] [place] [address] Eosinophils (Bld) [#/Vol] 0.0 10*3/uL Normal 0.0-0.4 [facility] Comment on above: Performed By: #### C BCA, PINR, 50098-0, CMP, 95518-6, 84934-7 #### [facility] ([id number]) [address] [place] [address] #### 39157-6 #### [facility] ([id number]) [address], [address] [place] [address] Eosinophils/100 WBC (Bld) 0.1 % Normal [facility] Comment on above: Performed By: #### C BCA, PINR, 07243-3, CMP, 95404-0, 65330-4 #### [facility] ([id number]) [address] [place] [address] #### 38449-9 #### [facility] ([id number]) [address] [place] [address] Erythrocyte distribution width (RBC) [Ratio] 15.0 % Normal 11.5-15.0 [facility] Comment on above: Performed By: #### C BCA, PINR, 55333-8, CMP, 04591-0, 60182-7 #### [facility] ([id number]) [address] [place] [address] #### 22880-7 #### [facility] ([id number]) [address], [address] [place] [address] Hematocrit (Bld) [Volume fraction] 25.7 % Low 39-49 [facility] Comment on above: Performed By: #### C BCA, PINR, 35682-7, CMP, 59337-0, 26336-1 #### [facility] ([id number]) [address] [place] [address] #### 91622-6 #### [facility] ([id number]) [address] [place] [address] Hemoglobin (Bld) [Mass/Vol] 8.6 g/dL Low 13.0-17.0 [facility] Comment on above: Performed By: #### C BCA, PINR, 00961-6, CMP, 87981-7, 02058-3 #### [facility] ([id number]) [address] [place] [address] #### 02862-0 #### [facility] ([id number]) [address] [place] [address] Lymphocytes (Bld) [#/Vol] 0.5 10*3/uL Low 1.0-3.5 [facility] Comment on above: Performed By: #### C BCA, PINR, 13262-9, CMP, , 28474-6 #### [facility] ([id number]) [address] [place] [address] #### 26940-4 #### [facility] ([id number]) [address] [place] [address] Lymphocytes/100 WBC (Bld) 3.3 % Normal [facility] Comment on above: Performed By: #### Kacey BCA, PINR, 93603-9, CMP, 40756-2, 80369-2 #### [facility] ([id number]) [address] [place] [address] #### 09588-2 #### [facility] ([id number]) [address] [place] [address] MCH (RBC) [Entitic mass] 31.4 pg Normal 27-34 [facility] Comment on above: Performed By: #### C BCA, PINR, 48940-6, CMP, 74010-1, 45949-3 #### [facility] ([id number]) [address] [place] [address] #### 90164-9 #### [facility] ([id number]) [address] [place] [address] MCHC (RBC) [Mass/Vol] 33.6 g/dL Normal 32-36 Pro [facility] Comment on above: Performed By: #### C BCA, PINR, 80518-7, CMP, 18771-4, 95745-1 #### [facility] ([id number]) [address] [place] [address] #### 03579-7 #### [facility] ([id number]) [address] [place] [address] MCV (RBC) [Entitic vol] 94 fL Normal 80-100 [facility] Comment on above: Performed By: #### C BCA, PINR, 67108-4, CMP, 95596-9, 06686-6 #### [facility] ([id number]) [address] [place] [address] #### 87591-2 #### [facility] ([id number]) [address] [place] [address] Monocytes (Bld) [#/Vol] 1.0 10*3/uL High 0-0.9 [facility] Comment on above: Performed By: #### C BCA, PINR, 82699-4, CMP, 70666-9, 13967-4 #### [facility] ([id number]) [address] [place] [address] #### 79983-0 #### [facility] ([id number]) [address] [place] [address] Monocytes/100 WBC (Bld) 7.4 % Normal [facility] Comment on above: Performed By: #### C BCA, PINR, 13738-7, CMP, 37657-1, 35414-4 #### [facility] ([id number]) [address] [place] [address] #### 36719-5 #### [facility] ([id number]) [address] [place] [address] Neutrophils/100 WBC (Bld) 88.9 % Normal [facility] Comment on above: Performed By: #### C BCA, PINR, 12349-1, CMP, 58501-2, 83801-4 #### [facility] ([id number]) [address] [place] [address] #### 45226-1 #### [facility] ([id number]) [address] [place] [address] Platelet mean volume (Bld) [Entitic vol] 9.3 fL Normal 7-12 [facility] Comment on above: Performed By: #### C BCA, PINR, 24326-9, CMP, 86700-9, 17691-4 #### [facility] ([id number]) [address] [place] [address] #### 63614-4 #### [facility] ([id number]) [address] [place] [address] Platelets (Bld) [#/Vol] 252 10*3/uL Normal 150-450 [facility] Comment on above: Performed By: #### C BCA, PINR, 10314-9, CMP, 31391-4, 24367-2 #### [facility] ([id number]) [address] [place] [address] #### 58024-5 #### [facility] ([id number]) [address] [place] [address] RBC COUNT 2.74 X10E12/L Low 4.10-5.70 [facility] Comment on above: Performed By: #### C BCA, PINR, 82908-7, CMP, 56017-7, 07007-0 #### [facility] ([id number]) [address] [place] [address] #### 98288-6 #### [facility] ([id number]) [address] [place] [address] WBC (Bld) [#/Vol] 13.8 10*3/uL High 4.0-11.0 [facility] Comment on above: Performed By: #### C BCA, PINR, 49109-3, CMP, 49285-1, 06175-9 #### [facility] ([id number]) [address] [place] [address]46 #### 79918-3 #### [facility] ([id number]) [address] [place] [address] COMPREHENSIVE METABOLIC PANE Larry 06-28-2024 Albumin [Mass/Vol] 2.6 g/dL Low 3.2-5.3 [facility] Comment on above: Performed By: #### C BCA, PINR, 07425-4, CMP, 67022-3, 55280-5 #### [facility] ([id number]) [address] [place] [address]52 #### 61955-4 #### [facility] ([id number]) [address] [place] [address] ALP [Catalytic activity/Vol] 70 U/L Normal 39-130 [facility] Comment on above: Performed By: #### C BCA, PINR, 63840-5, CMP, 58736-2, 68311-8 #### [facility] ([id number]) [address] [place] [address] #### 43408-4 #### [facility] ([id number]) [address], [address] [place] [address] ALT [Catalytic activity/Vol] 16 U/L Normal 0-40 [facility] Comment on above: Performed By: #### C BCA, PINR, 27798-4, CMP, 74093-3, 60572-4 #### [facility] ([id number]) [address] [place] [address] 36912 #### 35227-2 #### [facility] ([id number]) [address], [address] [place] [address] Anion gap [Moles/Vol] 6 mmol/L Normal 5-[address] [facility] Comment on above: Performed By: #### C BCA, PINR, 22738-0, CMP, 65998-6, 21747-2 #### [facility] ([id number]) [address] [place] [address] 91167 #### 13926-1 #### [facility] ([id number]) [address], [address] [place] [address] AST [Catalytic activity/Vol] 25 U/L Normal 0-41 [facility] Comment on above: Performed By: #### C BCA, PINR, 92084-4, CMP, 58401-6, 33633-6 #### [facility] ([id number]) [address] [place] [address] 76492 #### 51906-8 #### [facility] ([id number]) [address], [address] [place] [address] Bilirubin [Mass/Vol] 1.7 mg/dL High 0.3-1.2 [facility] Comment on above: Performed By: #### C BCA, PINR, 61798-4, CMP, 79578-5, 10566-2 #### [facility] ([id number]) [address] [place] [address] 70771 #### 78656-8 #### [facility] ([id number]) [address], [address] [place] [address] Calcium [Mass/Vol] 8.1 mg/dL Low 8.5-10.5 [facility] Comment on above: Performed By: #### C BCA, PINR, 95131-4, CMP, 04756-4, 48630-7 #### [facility] ([id number]) [address] [place] [address] 25921 #### 54121-4 #### [facility] ([id number]) [address] [facility] [address] [facility] [address] [place] [address] Chloride [Moles/Vol] 108 mmol/L Normal 98-109 [facility] Comment on above: Performed By: #### C BCA, PINR, 85115-9, CMP, 73036-4, 53980-5 #### [facility] ([id number]) [address] [place] [address] 94267 #### 14671-3 #### [facility] ([id number]) [address], [address] [place] [address] CO2 [Moles/Vol] 23 mmol/L Normal 22-32 [facility] Comment on above: Performed By: #### C BCA, PINR, 13067-1, CMP, 10748-0, 27684-5 #### [facility] ([id number]) [address] [place] [address] 46714 #### 38781-6 #### [facility] ([id number]) [address], [address] [place] [address] Creatinine [Mass/Vol] 1.90 mg/dL High 0.70-1.[address] [facility] Comment on above: Result Comment: METH OD TRACEABLE TO IDMS STANDARD Performed By: #### C BCA, PINR, 17331-2, CMP, 08247-3, 78414-9 #### [facility] ([id number]) [address] [place] [address] 22238 #### 62893-1 #### [facility] ([id number]) [address] [facility] [address] [place] [address] GFR/1.73 sq M.predicted among non-blacks MDRD (S/P/Bld) [Vol rate/Area] 36 mL/min/{1.73_m2} Low >59 Pr [facility] Comment on above: Result Comment: Reported eGFR is based on the CKD-EPI 2020 equation that does not use a race coefficient. Performed By: #### C BCA, PINR, 30485-2, CMP, 41974-7, 27756-0 #### [facility] ([id number]) [address] [place] [address] 92951 #### 81054-0 #### [facility] ([id number]) [address] [facility] [address] [place] [address] Glucose [Mass/Vol] 137 mg/dL High 65-99 [facility] Comment on above: Performed By: #### C BCA, PINR, 48621-1, CMP, 68298-7, 90083-3 #### [facility] ([id number]) [address] [place] [address] 78882 #### 12435-3 #### [facility] ([id number]) [address], [address] [place] [address] Potassium [Moles/Vol] 3.8 mmol/L Normal 3.5-5.[address] [facility] Comment on above: Performed By: #### C BCA, PINR, 14788-4, CMP, 96789-3, 99730-7 #### [facility] ([id number]) [address] [place] [address] 30488 #### 38063-0 #### [facility] ([id number]) [address], [address] [place] [address] Protein [Mass/Vol] 6.1 g/dL Normal 6.0-8.0 [facility] Comment on above: Performed By: #### C BCA, PINR, 56884-4, CMP, 48264-1, 61318-3 #### [facility] ([id number]) [address] [place] [address] 48230 #### 46049-9 #### [facility] ([id number]) [address], [address] [place] [address] Sodium [Moles/Vol] 137 mmol/L Normal 134-146 [facility] Comment on above: Performed By: #### C BCA, PINR, 18665-8, CMP, 50764-3, 76763-7 #### [facility] ([id number]) [address] [place] [address] 95004 #### 45877-4 #### [facility] ([id number]) [address], [address] [place] [address] Urea nitrogen [Mass/Vol] 20 mg/dL Normal 5-27 [facility] Comment on above: Performed By: #### C BCA, PINR, 15040-1, CMP, 35074-7, 56004-8 #### [facility] ([id number]) [address] [place] [address] 12017 #### 41812-0 #### [facility] ([id number]) [address], [address] [place] [address] CT ABDOMEN AND PELVIS W CONT on [...] Alexander MD on 06/28/2024 8:54 PM Normal [facility] CT BRAIN WO CONTon CT BRAIN [...] Alexander MD on 06/28/2024 8:37 PM Normal [facility] CT CERVICAL SPINE WO CONTon 06-28-2024 [...] Alexander MD on 06/28/2024 8:39 PM Normal [facility] CT FACIAL BONES WO CONTon CT [...] Alexander MD on 06/28/2024 8:41 PM Normal [facility] Fibrinogen Coagulation.deriv ed (PPP) [Mass/Vol]on 06-28-2024 FIBRINOGEN 644 mg/dL High 190-480 [facility] Comment on above: Performed By: #### P INR, 94629-4 #### [facility] ([id number]) [address] [place] [address] 49886 #### CBCA, CMP #### [facility] ([id number]) [address] [place] [address], [address] [place] [address] HEMOGLOBINon 06-28-2024 Hemoglobin (Bld) [Mass/Vol] 7.9 g/dL Low 13.0-17.0 [facility] Comment on above: Performed By: #### P INR, 74051-4 #### [facility] ([id number]) [address] [place] [address] 88257 #### CBCA, CMP #### [facility] ([id number]) [address] [place] [address], [address] [place] [address] Hematocrit Auto (Bld) [Volum e fraction]on 06-28-2024 Hematocrit (Bld) [Volume fraction] 23.3 % Low 39-49 [facility] Comment on above: Performed By: #### P INR, 99638-5 #### [facility] ([id number]) [address] [place] [address] 49165 #### CBCA, CMP #### [facility] ([id number]) [address], [address] [place] [address] Lactate (P rosanne) [Moles/Vol]o n 06-28-2024 LACTATE W/REFLEX 1.6 mmol/L Normal 0.4-2.0 [facility] Comment on above: Result Comment: Result did not trigger repeat Lactate, re-order if needed. Performed By: #### P INR, 91791-3 #### [facility] ([id number]) [address] [place] [address] 90727 #### CBCA, CMP #### [facility] ([id number]) [address] [facility] [address] [facility] [address] [place] [address] MAGNESIUMon 06-28-2024 Magnesium [Mass/Vol] 1.9 mg/dL Normal 1.8-2.6 [facility] Comment on above: Performed By: #### C BCA, PINR, 68835-6, CMP, 70536-5, 31417-4 #### [facility] ([id number]) [address] [place] [address] 18648 #### 27901-7 #### [facility] ([id number]) [address] [place] [address] PROTIME AND INRon 06-28-2024 INR Coag (PPP) [Relative time] 1.7 {INR} High 0.8-1.1 [facility] Comment on above: Performed By: #### P INR, 38713-5 #### [facility] ([id number]) [address] [place] [address] 51449 #### CBCA, CMP #### [facility] ([id number]) [address], [address] [place] [address] PT Coag (PPP) [Time] 18.9 s High 9.8-13.2 [facility] Comment on above: Result Comment: NEW REFERENCE RANGE Performed By: #### P INR, 95331-3 #### [facility] ([id number]) [address] [place] [address] 70196 #### CBCA, CMP #### [facility] ([id number]) [address] [facility] [address], [address] [place] [address] INR Coag (PPP) [Relative time] 3.1 {INR} High 0.8-1.1 [facility] Comment on above: Performed By: #### C BCA, PINR, 46335-0, CMP, 10247-3, 12934-1 #### [facility] ([id number]) [address] [place] [address] 28973 #### 01948-2 #### [facility] ([id number]) [address] [address] [place] [address] PT Coag (PPP) [Time] 34.3 s High 9.8-13.2 [facility] Comment on above: Result Comment: NEW REFERENCE RANGE Performed By: #### C BCA, PINR, 91535-0, CMP, 69037-5, 61472-5 #### [facility] ([id number]) [address] [place] [address] 39676 #### 10576-6 #### [facility] ([id number]) [address] [place] [address] Procalcitonin IA [Mass/Vol]o n 06-28-2024 PROCALCITONIN 0.33 ng/mL High <0.05 [facility] Comment on above: Result Comment: NOTE <0.50 ng/mL - Low risk of severe sepsis and/or septic shock. <2.00 ng/mL - Recommend retesting within 6-24 hours. >2.00 ng/mL - High risk of sepsis and/or septic shock. Performed By: #### C BCA, PINR, 88862-9, CMP, 06955-3, 29834-4 #### [facility] ([id number]) [address] [facility] [facility] [place] [address] #### 36386-6 #### [facility] ([id number]) [address] [place] [address], [address] [place] [address] SARS/FLU A+B/RSV by NAAT/Mol ecularon 06-28-2024 SARS/FLU [...] operators who are performing tests using either GeneXGamyTech DX or Gene115 network disks [employer]inity systems and is limited to laboratories that [...] repeat. Fact Sheet for Healthcare Providers: https://www.fda.gov /media/476949/downl oad Fact Sheet for Patients: https://www.fda.gov /media/185556/downl oad Normal [facility] Comment on above: Performed By: #### P INR, 82724-0 #### [facility] ([id number]) [address] [place] [address] 65261 #### CBCA, CMP #### [facility] ([id number]) [address], [address] [place] [address] URINALYSISon 06-28-2024 Bilirubin Ql (U) Negative Normal NEG [facility] Comment on above: Performed By: #### P INR, 18313-9 #### [facility] ([id number]) [address] [place] [address] 74618 #### CBCA, CMP #### [facility] ([id number]) [address], [address] [place] [address] BLOOD/HGB Large Abnormal NEG [facility] Comment on above: Performed By: #### P INR, 69922-8 #### [facility] ([id number]) [address] [place] [address] 43657 #### CBCA, CMP #### [facility] ([id number]) [address], [address] [place] [address] Color (U) ALISSA Abnormal YELLOW [facility] Comment on above: Performed By: #### P INR, 18547-9 #### [facility] ([id number]) [address] [place] [address] 40915 #### CBCA, CMP #### [facility] ([id number]) [address] [place] [address] Glucose Ql (U) >1000 Abnormal NEG [facility] Comment on above: Performed By: #### P INR, 71236-0 #### [facility] ([id number]) [address] [place] [address] 64129 #### CBCA, CMP #### [facility] ([id number]) [address] [place] [address] Ketones Ql (U) Negative Normal NEG [facility] Comment on above: Performed By: #### P INR, 25252-2 #### [facility] ([id number]) [address] [place] [address] 26141 #### CBCA, CMP #### [facility] ([id number]) [address] [place] [address] Leukocyte esterase Test strip Ql (U) Negative Normal NEG [facility] Comment on above: Result Comment: HIGH CONCENTRATIONS OF GLUCOSE MAY DECREASE THE REACTIVITY OF THE DIPSTICK LEUKOCYTE TEST PAD. Performed By: #### P INR, 61371-3 #### [facility] ([id number]) [address] [place] [address] 40475 #### CBCA, CMP #### [facility] ([id number]) [address] [place] [address] Nitrite Ql (U) Negative Normal NEG [facility] Comment on above: Performed By: #### P INR, 69078-5 #### [facility] ([id number]) [address] [place] [address] 42140 #### CBCA, CMP #### [facility] ([id number]) [address] [place] [address] pH (U) 6.0 [pH] Normal 5.0-8.5 [facility] Comment on above: Performed By: #### P INR, 03467-8 #### [facility] ([id number]) [address] [place] [address] 81581 #### CBCA, CMP #### [facility] ([id number]) [address], [address] [place] [address] Protein Ql (U) 100 mg/dL Abnormal NEG [facility] Comment on above: Performed By: #### P INR, 19787-1 #### [facility] ([id number]) [address] [place] [address] 82997 #### CBCA, CMP #### [facility] ([id number]) [address], [address] [place] [address] R.B.CELLS 10 /hpf High 0-5 [facility] Comment on above: Performed By: #### P INR, 68467-0 #### [facility] ([id number]) [address] [place] [address] 65983 #### CBCA, CMP #### [facility] ([id number]) [address], [address] [place] [address] Specific gravity (U) [Rel density] 1.015 Normal 1.003-1.03 5 [facility] Comment on above: Performed By: #### P INR, 04144-6 #### [facility] ([id number]) [address] [place] [address] 21482 #### CBCA, CMP #### [facility] ([id number]) [address] [place] [address] TURBIDITY HAZY Abnormal CLEAR [facility] Comment on above: Performed By: #### P INR, 55777-0 #### [facility] ([id number]) [address] [place] [address] 37445 #### CBCA, CMP #### [facility] ([id number]) [address] [facility] [facility] [address] [place] [address] Urobilinogen Qn (U) 0.2 {Liana'U}/dL Normal <1.1 [facility] Comment on above: Performed By: #### P INR, 33643-4 #### [facility] ([id number]) [address] [place] [address] 64414 #### CBCA, CMP #### [facility] ([id number]) [address] [facility] [address] [place] [address] W.B.CELLS 0 /hpf Normal 0-5 [facility] Comment on above: Performed By: #### P INR, 83710-5 #### [facility] ([id number]) [address] [place] [address] 89710 #### CBCA, CMP #### [facility] ([id number]) [address] [facility] [address] [place] [address] URINE CULTUREon 06-28-2024 Bacteria identified Cx Nom (U) CULTURE RESULTS NO GROWTH AT <1000 CFU/mL Normal [facility] Comment on above: Performed By: #### P INR, 77521-3 #### [facility] ([id number]) [address] [place] [address] 99877 #### CBCA, CMP #### [facility] ([id number]) [address] [facility] [place] [address] aPTT Coag (PPP) [Time]on aPTT Coag (Bld) [Time] 40 s High 26-37 Pr [facility] Comment on above: Result Comment: NEW REFERENCE RANGE Performed By: #### C BCA, PINR, 15980-2, CMP, 74271-5, 43755-8 #### [facility] ([id number]) [address] [facility] [place] [address] #### 37074-2 #### [facility] ([id number]) [address] [facility] [place] [address] APTTon 06-26-2024 ACTIVATED PARTIAL THROMBOPLASTIN TIME IN PPP BY COAGULATION ASSAY 35.6 Seconds High 25.0-35.0 [facility] Comment on above: Result Comment: Clin ical significance of the APTT is questionable in the presence of heparin. Performed By: #### L [id number] ####[facility] ([facility])[address] [place] [address] B-TYPE NATRIURETIC PEPTIDEon 06-26-2024 Natriuretic peptide B (Bld) [Mass/Vol] 441 pg/mL High 0-100 [facility] Comment on above: Performed By: #### L [id number] ####[facility] ([facility])[address] [place] [address] CBC WITH AUTO DIFFERENTIALon 06-26-2024 Basophils (Bld) [#/Vol] 0.03 10*3/uL Normal 0.00-0.20 [facility] Comment on above: Performed By: #### L [id number] ####[facility] ([facility])[address] [place] [address] Basophils/100 WBC (Bld) 0.3 % Normal 0.0-1.0 [facility] Comment on above: Performed By: #### L [id number] ####[facility] ([facility])[address] [place] [address] Eosinophils (Bld) [#/Vol] 0.06 10*3/uL Normal 0.00-0.5 0 [facility] Comment on above: Performed By: #### L [id number] ####[facility] ([facility])[address] [place] [address] Eosinophils/100 WBC (Bld) 0.6 % Normal 0.0-6.0 [facility] Comment on above: Performed By: #### L [id number] ####[facility] ([facility])[address] [place] [address] Erythrocyte distribution width (RBC) [Ratio] 14.2 % Normal 11.5-15.0 [facility] Comment on above: Performed By: #### L [id number] ####[facility] ([facility] [place] [address] ERYTHROCYTE MEAN CORPUSCULAR HEMOGLOBIN CONCENTRATION (G/DL) BY AUTOMATED 31.8 g/dL Low 32.0-35.0 [facility] Comment on above: Performed By: #### L [id number] ####[facility] ([facility] [place] [address] Hematocrit (Bld) [Volume fraction] 34.3 % Low 39.0-55.0 [facility] Comment on above: Performed By: #### L [id number] ####[facility] ([facility])[address] [place] [address] Hemoglobin (Bld) [Mass/Vol] 10.9 g/dL Low 13.0-17.0 [facility] Comment on above: Performed By: #### L [id number] ####[facility] ([facility])[address] [place] [address] Immature granulocytes (Bld) [#/Vol] 0.08 10*3/uL Normal 0.00-0.20 [facility] Comment on above: Performed By: #### L [id number] ####[facility] ([facility])[address] [place] [address] Immature granulocytes/100 WBC (Bld) 0.8 % Normal 0.0-1.0 [facility] Comment on above: Performed By: #### L [id number] ####[facility] ([facility])[address] [place] [address] Lymphocytes (Bld) [#/Vol] 0.58 10*3/uL Low 1.20-4.0 0 [facility] Comment on above: Performed By: #### L [id number] ####[facility] ([facility])[address] [place] [address] Lymphocytes/100 WBC (Bld) 5.7 % Low 20.0-45.0 [facility] Comment on above: Performed By: #### L [id number] ####[facility] ([facility])[address] [place] [address] MCH (RBC) [Entitic mass] 30.9 pg Normal 27.0-33.0 [facility] Comment on above: Performed By: #### L [id number] ####[facility] ([facility])[address] [place], [place] [address] MCV (RBC) [Entitic vol] 97.2 fL Normal 82.0-98.0 U [facility] Comment on above: Performed By: #### L [id number] ####[facility] [place] [address] Monocytes (Bld) [#/Vol] 0.79 10*3/uL Normal 0.10-1.00 [facility] Comment on above: Performed By: #### L [id number] ####[facility] [place] [address] Monocytes/100 WBC (Bld) 7.8 % Normal 5.0-12.0 U [facility] Comment on above: Performed By: #### L [id number] ####[facility] (BEAK[facility])[address] [place] [address] Neutrophils (Bld) [#/Vol] 8.64 10*3/uL High 1.60-7.6 0 [facility] Comment on above: Performed By: #### L [id number] ####[facility] ([facility])[address] [place] [address] Neutrophils/100 WBC (Bld) 84.8 % High 40.0-72.0 [facility] Comment on above: Performed By: #### L [id number] ####[facility] ([facility])[address] [place] [address] NRBC (PER 100 WBCS) BY AUTOMATED COUNT 0.0 % Normal 0 [facility] Comment on above: Performed By: #### L [id number] ####[facility] ([facility])[address] [place] [address] PLATELETS (10*3/UL) IN BLOOD AUTOMATED COUNT 191 10*3/uL Normal 150-400 [facility] Comment on above: Performed By: #### L [id number] ####[facility] ([facility])[address] [place] [address] RBC (Bld) [#/Vol] 3.53 10*6/uL Low 4.20-5.70 [facility] Comment on above: Performed By: #### L [id number] ####[facility] ([facility])[address] [place] [address] WBC (Bld) [#/Vol] 10.18 10*3/uL Normal 4.00-10.60 [facility] Comment on above: Performed By: #### L [id number] ####[facility] ([facility])[address] [place] [address] COMPREHENSIVE METABOLIC PANE Larry 06-26-2024 Albumin [Mass/Vol] 3.1 g/dL Low 3.5-5.7 [facility] Comment on above: Performed By: #### L [id number] ####[facility] ([facility])[address] [place] [address] ALP [Catalytic activity/Vol] 71 U/L Normal 34-104 [facility] Comment on above: Performed By: #### L [id number] ####[facility] ([facility])[address] [place] [address] ALT [Catalytic activity/Vol] 16 U/L Normal 7-52 [facility] Comment on above: Performed By: #### L [id number] ####[facility] ([facility])[address] [place] [address] Anion gap [Moles/Vol] 10 mmol/L Normal 7-20 [facility] Comment on above: Performed By: #### L [id number] ####[facility] ([facility] [place] [address] AST [Catalytic activity/Vol] 23 U/L Normal 13-39 [facility] Comment on above: Performed By: #### L [id number] ####[facility] ([facility])[address] [place] [address] Bilirubin [Mass/Vol] 0.9 mg/dL Normal 0.3-1.0 [facility] Comment on above: Performed By: #### L [id number] ####[facility] ([facility])[address] [place] [address] Calcium [Mass/Vol] 8.1 mg/dL Low 8.6-10.3 [facility] Comment on above: Performed By: #### L [id number] ####[facility] ([facility] [place] [address] Chloride [Moles/Vol] 108 mmol/L High 98-107 [facility] Comment on above: Performed By: #### L [id number] ####[facility] ([facility] [place] [address] CO2 [Moles/Vol] 24 mmol/L Normal 21-31 [facility] Comment on above: Performed By: #### L [id number] ####[facility] ([facility] [place] [address] Creatinine [Mass/Vol] 1.28 mg/dL Normal 0.70-1.30 [facility] Comment on above: Performed By: #### L [id number] ####[facility] ([facility] [place] [address] GLOMERULAR FILTRATION RATE ML/MIN/1.73 SQ M.PREDICTED 57.3 mL/min/1.73m*2 Low >60.0 U [facility] Comment on above: Result Comment: [facility]???s estimated glomerular filtration rate [...] of individuals. Performed By: #### L [id number] ####[facility] ([facility])[address] [place] [address] Glucose [Mass/Vol] 117 mg/dL High 70-100 [facility] Comment on above: Performed By: #### L [id number] ####[facility] ([facility])[address] [place] [address] Potassium [Moles/Vol] 3.6 mmol/L Normal 3.5-5.1 [facility] Comment on above: Performed By: #### L [id number] ####[facility] ([facility])[address] [place] [address] Protein [Mass/Vol] 5.6 g/dL Low 6.0-8.3 [facility] Comment on above: Performed By: #### L [id number] ####[facility] ([facility])[address] [place] [address] Sodium [Moles/Vol] 138 mmol/L Normal 136-145 [facility] Comment on above: Performed By: #### L [id number] ####[facility] ([facility])[address] [place] [address] Urea nitrogen [Mass/Vol] 13 mg/dL Normal 7-25 [facility] Comment on above: Performed By: #### L [id number] ####[facility] ([facility])[address] [place] [address] UREA NITROGEN/CREATININE (MASS RATIO) IN SER/PLAS 10.2 Normal [facility] Comment on above: Performed By: #### L [id number] ####[facility] ([facility])[address] [place] [address] CONSULTon 06-26-2024 CONSULT Normal [facility] CT ABDOMEN PELVIS WO IV CONT RASTon 06-26-2024 CT ABDOMEN PELVIS WO IV CONTRAST Normal [facility] EDNURSon 06-26-2024 EDNURS Gown ,call light, warm blanket, urinal, labeled speci cup provided. Son with pt. Pt transfer self to stretcher from personal w/c with some difficulty Normal [facility] EDNURS Normal [facility] EDPROVon 06-26-2024 EDPROV Normal [facility] MAGNESIUMon 06-26-2024 Magnesium [Mass/Vol] 1.7 mg/dL Low 1.9-2.7 [facility] Comment on above: Performed By: #### L [id number] ####[facility] ([facility])[address] [place] [address] PROTIME-INRon 06-26-2024 INR IN PPP BY COAGULATION ASSAY 2.07 High 0.90-1.10 [facility] Comment on above: Result Comment: ACCC P [...] CHEST 1995;[id number]. Performed By: #### L [id number] ####[facility] ([facility])[address] [place] [address] PROTHROMBIN TIME (PT) IN PPP BY COAGULATION ASSAY 22.9 Seconds High 12.3-14.8 [facility] Comment on above: Performed By: #### L [id number] ####[facility] ([facility])[address] [place] [address] TROPONIN Ion 06-26-2024 Troponin I.cardiac [Mass/Vol] 0.01 ng/mL Normal 0.00-0.04 [facility] Comment on above: Performed By: #### L [id number] ####[facility] ([facility])[address] [facility] [address] TYPE AND SCREENon 06-26-2024 AB SCREEN Negative Normal [facility] Comment on above: Performed By: #### L [id number] ####[facility] BLOOD BANK, ABO group Nom (Bld) A Normal [facility] Comment on above: Performed By: #### L [id number] ####[facility] BLOOD BANK, RH TYPE IN BLOOD Positive Normal [facility] Comment on above: Performed By: #### L [id number] ####[facility] BLOOD B[facility], URINALYSIS MICROSCOPIC WITH REFLEX CULTUREon 06-26-2024 MUCUS (#/LPF) IN URINE SEDIMENT Occasional Normal None Seen, Occasional , Few [facility] Comment on above: Performed By: #### L [id number] ####[facility] ([facility])[address] [place] [address] RBC (#/HPF) IN URINE SEDIMENT >20 Abnormal None Seen, 0-2 [facility] Comment on above: Performed By: #### L [id number] ####[facility] ([facility])[address] [place] [address] SQUAMOUS EPITHELIAL CELLS (#/LPF) IN URINE SEDIMENT None Seen Normal None Seen, Occasional , Few [facility] Comment on above: Performed By: #### L [id number] ####[facility] ([facility])[address] [place] [address] WBC (LEUKOCYTE) (#/HPF) IN URINE SEDIMENT >50 Abnormal None Seen, 0-2 [facility] Comment on above: Performed By: #### L [id number] ####[facility] ([facility])[address] [place] [address] URINALYSIS WITH REFLEX CULTU REon 06-26-2024 BILIRUBIN, TOTAL PRESENCE IN URINE Negative Normal Negative [facility] Comment on above: Performed By: #### L [id number] ####[facility] ([facility])[address] [place] [address] Clarity (U) Cloudy Abnormal Clear [facility] Comment on above: Performed By: #### L [id number] ####[facility] ([facility])[address] [place] [address] Color (U) Dark-Yellow Abnormal Colorless, Yellow, Light-[place] ow [facility] Comment on above: Performed By: #### L [id number] ####[facility] ([facility])[address] [place] [address] Glucose (U) [Mass/Vol] mg/dL Abnormal [facility] Comment on above: Performed By: #### L [id number] ####[facility] ([facility])[address] [place] [address] HEMOGLOBIN PRESENCE IN URINE Large Abnormal Negative [facility] Comment on above: Performed By: #### L [id number] ####[facility] ([facility])[address] [place] [address] Ketones Ql (U) Negative Normal Negative [facility] Comment on above: Performed By: #### L [id number] ####[facility] ([facility])[address] [place] [address] LEUKOCYTE ESTERASE PRESENCE IN URINE BY TEST STRIP Large Abnormal Negative [facility] Comment on above: Performed By: #### L [id number] ####[facility] ([facility])[address] [place] [address] NITRITE PRESENCE IN URINE Negative Normal Negative [facility] Comment on above: Performed By: #### L [id number] ####[facility] ([facility])[address] [place] [address] pH (U) 6.5 [pH] Normal 5.0-8.0 [facility] Comment on above: Performed By: #### L [id number] ####[facility] ([facility])[address] [place] [address] Protein (U) [Mass/Vol] 30 mg/dL Abnormal Negative [facility] Comment on above: Performed By: #### L [id number] ####[facility] ([facility])[address] [place] [address] Specific gravity (U) [Rel density] 1.023 Normal 1.010-1.03 0 [facility] Comment on above: Performed By: #### L [id number] ####[facility] ([facility])[address] [place] [address] UROBILINOGEN (MG/DL) IN URINE 4.0 mg/dL Abnormal Normal [facility] Comment on above: Performed By: #### L [id number] ####[facility] ([facility])[address] [place] [address] URINE CULTURE, ROUTINEon Bacteria identified Cx Nom (U) No growth at 48 hours Normal [facility] Comment on above: Performed By: #### L [id number] ####[facility] ([facility])[address] [place] [address] ANESon 06-19-2024 ANES Normal [facility] ANES Normal [facility] DEVICE CULTUREon 06-19-2024 Bacteria identified Cx Nom (Unsp spec) No growth at 3 days Normal [place] [facility] Comment on above: Order Comment: Pre-o p diagnosis:Kidney stones [N20.0] Performed By: #### D EVICE CULTURE ####[facility] ([facility]ER)[address] [facility] [address] HISTOLOGY - TISSUE EXAMon LAB AP ADDENDUM 1 Normal [facility] Comment on above: Order Comment: Pre-o p diagnosis:Kidney stones [N20.0] Result Comment: 06-16: This case was sent to the Urolithiasis Laboratory in [place], [place] for chemical analysis (please see accompanying report). ? Please see results below:Urolithiasis Results:No nidus observed in the specimenThe stone is composed of:?? Calcium oxalate monohydrate:? 100%Addendum electronically signed by Katy Pierre MD on 07/04/2024 at 11:38 AM Performed By: #### L [id number] ####[facility] ([facility])[address] [place] [address] LAB AP CASE REPORT Normal [facility] Comment on above: Order Comment: Pre-o p diagnosis:Kidney stones [N20.0] Result Comment: Surg ical Pathology Case: [id number] Provider: Tino Langston MD Collected: 06/19/2024 1004Ordering Location: [facility] Main Operating Room Received: 06/19/2024 1259Pathologist: JERONIMO Boydpecimen: Kidney, KIDNEY STONE FOR ANALYSIS Performed By: #### L [id number] ####[facility] ([facility])[address] [place] [address] LAB AP CLINICAL INFORMATION Normal [facility] Comment on above: Order Comment: Pre-o p diagnosis:Kidney stones [N20.0] Result Comment: Pre- op diagnosis:Kidney stones [N20.0] Performed By: #### L [id number] ####[facility] ([facility]ER)[address] [facility] [address] LAB AP GROSS DESCRIPTION A. Kidney. Normal [facility] Comment on above: Order Comment: Pre-o p diagnosis:Kidney stones [N20.0] Result Comment: Part A is received fresh labeled Edward Shiets and kidney stone for analysis . It consists of 2 irregular, wiggins-brown, firm calculi measuring 0.2 x 0.2 x 0.1 cm and 0.2 x 0.1 x 0.1 cm. The specimen is submitted to the Urolithiasis Lab in [place], [place] for chemical analysis.Carolina Adams, Pathologists' Cath Lab Technologist studentAyden Lawson, Pathologists' Cath Lab Technologist student Performed By: #### L [id number] ####[facility] ([facility])[address] [place] [address] LAB AP REPORT FINAL DIAGNOSIS NARRATIVE [facility] Comment on above: Order Comment: Pre-o p diagnosis:Kidney stones [N20.0] Result Comment: Shakeel montemayor, stone , removal: - Stone fragments for chemical analysis. Performed By: #### L [id number] ####[facility] ([facility])[address] [place] [address] HPon 06-19-2024 HP [facility] OPNOTEon 06-19-2024 OPNOTE [facility] POCT GLUCOSE METER UNSOLICIT ED RESULTSon 06-19-2024 Glucose [Mass/Vol] 84 mg/dL Normal 70-105 [facility] Comment on above: Order Comment: Waive d Testing in the ED is performed under the ED CLIA certificate #[id number]. Result Comment: [email or web address] Performed By: #### L [id number] ####[facility] ([facility])[address] [place] [address] Orders Onlyon 06-18-2024 Orders Only [facility] Orders Onlyon 06-17-2024 Orders Only [facility] Orders Onlyon 05-29-2024 Orders Only [facility] ANESon 05-21-2024 ANES [facility] ANES [facility] HPon 05-21-2024 HP [facility] NURSNOTEon 05-21-2024 DC Spoke with Mehdi from [employer], he stated it is not necessary to interrogate patients pacemaker. Pt is 100% paced and capture AV paced with no issues noted. Dr Ashley notified. 1245 cont with no problems. Stable for DC home. Normal [facility] OPNOTEon 05-21-2024 OPNOTE Normal [facility] Orders Onlyon 05-21-2024 Orders Only Normal [facility] POCT GLUCOSE METER UNSOLICIT ED RESULTSon 05-21-2024 Glucose [Mass/Vol] 90 mg/dL Normal 70-105 [facility] Comment on above: Order Comment: Waive d Testing in the ED is performed under the ED CLIA certificate #[id number]. Result Comment: [email or web address] phong Performed By: #### L [id number] ####[facility] ([facility] [place] [address] POCT PERFUSION PANEL UNSOLIC ITED RESULTSon 05-21-2024 CO2 [Moles/Vol] 27.0 mmol/L Normal 21.0-29.0 [facility] Comment on above: Performed By: #### L [id number] ####[facility] ([email or web address])[address] [place] [address] Glucose [Mass/Vol] 96 mg/dL Normal 70-105 [facility] Comment on above: Performed By: #### L [id number] ####[facility] (BE[facility]ER)[address] [place] [address] HCO3 (Bld) [Moles/Vol] 25.5 mmol/L Normal 23.0-28.0 [facility] Comment on above: Performed By: #### L [id number] ####[facility] ([facility])[address] [place] [address] Hematocrit (Bld) [Volume fraction] 42 % Normal 38-51 [facility] Comment on above: Performed By: #### L [id number] ####[facility] ([facility]ER)[address] [place] [address] Hemoglobin (Bld) [Mass/Vol] 14.3 g/dL Normal 12.0-17.0 [facility] Comment on above: Performed By: #### L [id number] ####[facility] ([facility])[address] [place] [address] POCT BASE EXCESS -1.0 mmol/L Normal -2.0-3.0 [facility] Comment on above: Performed By: #### L [id number] ####[facility] ([facility])[address] [place] [address] POCT IONIZED CALCIUM 1.51 mmol/L High 1.12-1.32 [facility] Comment on above: Performed By: #### L [id number] ####[facility] ([facility])[address] [place] [address] POCT PCO2 47.1 mmHg Normal 41.0-51.0 [facility] Comment on above: Performed By: #### L [id number] ####[facility] ([facility])[address] [place] [address] POCT PH 7.34 Normal 7.31-7.41 [facility] Comment on above: Performed By: #### L [id number] ####[facility] ([facility])[address] [place] [address] POCT PO2 141 mmHg High 80-105 [facility] Comment on above: Performed By: #### L [id number] ####[facility] ([facility])[address] [place] [address] POCT SO2 99 % High 95-98 [facility] Comment on above: Performed By: #### L [id number] ####[facility] ([facility])[address] [place] [address] Potassium [Moles/Vol] 3.0 mmol/L Low 3.5-4.9 [facility] Comment on above: Performed By: #### L [id number] ####[facility] (BEAKER)[address] [place] [address] Sodium [Moles/Vol] 142 mmol/L Normal 138.0-146 . 0 [facility] Comment on above: Performed By: #### L [id number] ####[facility] ([facility])[address] [place] [address] URINE CULTURE, STERILE COLLE CTIONon 05-21-2024 Bacteria identified Cx Nom (U) No growth at 48 hours Normal [facility] Comment on above: Order Comment: Pre-o p diagnosis:Staghorn calculus [N20.0] Performed By: #### L [id number] ####[facility] ([facility])[address] [place] [address] GRAM STAIN RESULT Normal [facility] Comment on above: Order Comment: Pre-o p diagnosis:Staghorn calculus [N20.0] Result Comment: No p olymorphonuclear leukocytes seenNo organisms seen Performed By: #### L [id number] ####[facility] ([facility])[address] [place] [address] Orders Onlyon 05-20-2024 Orders Only Normal [facility] Urine Cultureon 05-15-2024 Bacteria identified Cx Nom (U) No Growth 2 Days PERFORMED BY: [place] [address] PATHOLOGIST MANAGER CONTACT MARTINE BAIN M.D. Normal The [facility] Comment on above: Performed By: #### C UU #### [place] [address] [place] Orders Onlyon 05-10-2024 Orders Only Normal [facility] 37on 04-24-2024 37 Normal [facility] Orders Onlyon 04-24-2024 Orders Only Normal [facility] Follow-Upon 04-19-2024 Follow-Up Normal [facility] 36on 04-18-2024 36 Patrice, patient's son called back and said his BP now was 131/79. I advised him to continue to keep track of his father's BP trends, taking it 1-2 hours after medications. Asked him to make our office aware of any concerns. He verbalized understanding. [facility] 36 [facility] 36on 04-04-2024 36 Please let him know, labs look good. Okay to resume Farxiga and spironolactone half tablet daily. Thanks! [facility] 36on 04-03-2024 36 Okay to resume Metoprolol. Will await his lab results to see if okay to resume the rest. Please follow-up tomorrow to make sure labs were done today. Thank you! [facility] Telephoneon 04-03-2024 Telephone [facility] 37on 04-02-2024 37 *Replacing carvedilol with metoprolol succinate, 25mg, 1 tablet daily. *Prescription sent for an antibiotic, doxycycline 100mg. Take twice daily for 10 days. [facility] 30on 03-06-2024 30 [facility] 30 [facility] 30 [facility] BASIC METABOLIC PANELon 02-13 Anion gap [Moles/Vol] 7 mmol/L Normal 7-20 [facility] Comment on above: Performed By: #### L [id number] ####[facility] (BEAKER)[address] [place] [address] Calcium [Mass/Vol] 8.4 mg/dL Low 8.6-10.3 [facility] Comment on above: Performed By: #### L [id number] ####[facility] (BEAKER)[address] [place] [address] Chloride [Moles/Vol] 105 mmol/L Normal 98-107 [facility] Comment on above: Performed By: #### L [id number] ####[facility] (BEAKER)[address] [place] [address] CO2 [Moles/Vol] 32 mmol/L High 21-31 [facility] Comment on above: Performed By: #### L [id number] ####[facility] (BEAKER)[address] [place] [address] Creatinine [Mass/Vol] 0.95 mg/dL Normal 0.70-1.30 [facility] Comment on above: Performed By: #### L [id number] ####[facility] ([facility])[address] [place] [address] GLOMERULAR FILTRATION RATE ML/MIN/1.73 SQ M.PREDICTED 81.9 mL/min/1.73m*2 Normal >60.0 U [facility] Comment on above: Result Comment: [facility]???s estimated glomerular filtration rate [...] of individuals. Performed By: #### L [id number] ####[facility] ([facility])[address] [place] [address] Glucose [Mass/Vol] 90 mg/dL Normal 70-100 [facility] Comment on above: Performed By: #### L [id number] ####[facility] ([facility])[address] [place] [address] Potassium [Moles/Vol] 3.8 mmol/L Normal 3.5-5.1 [facility] Comment on above: Performed By: #### L [id number] ####[facility] ([facility])[address] [place] [address] Sodium [Moles/Vol] 140 mmol/L Normal 136-145 [facility] Comment on above: Performed By: #### L [id number] ####[facility] ([facility])[address] [place] [address] Urea nitrogen [Mass/Vol] 21 mg/dL Normal 7-25 [facility] Comment on above: Performed By: #### L [id number] ####[facility] [place] [address] UREA NITROGEN/CREATININE (MASS RATIO) IN SER/PLAS 22.1 Normal [facility] Comment on above: Performed By: #### L [id number] ####[facility] [place] [address] CBCon 03-06-2024 Erythrocyte distribution width (RBC) [Ratio] 13.3 % Normal 11.5-15.0 [facility] Comment on above: Performed By: #### L [id number] ####[facility] ([facility])[address] [address] ERYTHROCYTE MEAN CORPUSCULAR HEMOGLOBIN CONCENTRATION (G/DL) BY AUTOMATED 31.9 g/dL Low 32.0-35.0 [facility] Comment on above: Performed By: #### L [id number] ####[facility] ([facility])[address] [place] [address] Hematocrit (Bld) [Volume fraction] 38.3 % Low 39.0-55.0 [facility] Comment on above: Performed By: #### L [id number] ####[facility] ([facility])[address] [address] Hemoglobin (Bld) [Mass/Vol] 12.2 g/dL Low 13.0-17.0 [facility] Comment on above: Performed By: #### L [id number] ####[facility] ([facility])[address] [place] [address] MCH (RBC) [Entitic mass] 31.9 pg Normal 27.0-33.0 [facility] Comment on above: Performed By: #### L [id number] ####[facility] [place] [address] MCV (RBC) [Entitic vol] 100.3 fL High 82.0-98.0 [facility] Comment on above: Performed By: #### L [id number] ####[facility] ([facility] [place] [address] PLATELETS (10*3/UL) IN BLOOD AUTOMATED COUNT 196 10*3/uL Normal 150-400 [facility] Comment on above: Performed By: #### L [id number] ####[facility] ([facility])[address] [place] [address] RBC (Bld) [#/Vol] 3.82 10*6/uL Low 4.20-5.70 [facility] Comment on above: Performed By: #### L [id number] ####[facility] ([facility])[address] [place] [address] WBC (Bld) [#/Vol] 7.67 10*3/uL Normal 4.00-10.60 [facility] Comment on above: Performed By: #### L [id number] ####[facility] ([facility])[address] [place] [address] CONSULTon 03-06-2024 CONSULT [facility] DSon 03-06-2024 DS [facility] NURSNOTEon 03-06-2024 NURSNOTE This RN called and gave report to Receiving nurse at [place]. Nurse denied further questions. Report given to Transport bedside. Transport has discharge packet. Normal [facility] PRO-BNPon 03-06-2024 Natriuretic peptide B (Bld) [Mass/Vol] 800 pg/mL High 0-300 [facility] Comment on above: Result Comment: An a ge-independent cutoff point of 300 pg/ml has a 98% negative predictive value excluding acute heart failure.Test Performed by [employer] [place] [address] - Released 03/06/2024 15:37 Performed By: #### L [id number] ####[facility] [id number] [place] [address] 30on 03-05-2024 30 Normal [facility] 30 Normal [facility] 30 Normal [facility] BASIC METABOLIC PANELon 02-13 Anion gap [Moles/Vol] 9 mmol/L Normal 7-20 [facility] Comment on above: Performed By: #### L [id number] ####[facility] ([facility])[address] [place] [address] Calcium [Mass/Vol] 8.4 mg/dL Low 8.6-10.3 [facility] Comment on above: Performed By: #### L [id number] ####[facility] ([facility])[address] [facility] [place] [address] Chloride [Moles/Vol] 104 mmol/L Normal 98-107 [facility] Comment on above: Performed By: #### L [id number] ####[facility] ([facility])[address] [place] [address] CO2 [Moles/Vol] 33 mmol/L High 21-31 [facility] Comment on above: Performed By: #### L [id number] ####[facility] ([facility])[address] [facility] [place] [address] Creatinine [Mass/Vol] 1.02 mg/dL Normal 0.70-1.30 [facility] Comment on above: Performed By: #### L [id number] ####[facility] ([facility])[address] [place] [address] GLOMERULAR FILTRATION RATE ML/MIN/1.73 SQ M.PREDICTED 75.2 mL/min/1.73m*2 Normal >60.0 [facility] Comment on above: Result Comment: [facility]???s estimated glomerular filtration rate [...] of individuals. Performed By: #### L [id number] ####[facility] [place] [address] Glucose [Mass/Vol] 88 mg/dL Normal 70-100 [facility] Comment on above: Performed By: #### L [id number] ####[facility] ([facility])[address] [place] [address] Potassium [Moles/Vol] 3.8 mmol/L Normal 3.5-5.1 [facility] Comment on above: Performed By: #### L [id number] ####[facility] ([facility])[address] [place] [address] Sodium [Moles/Vol] 142 mmol/L Normal 136-145 [facility] Comment on above: Performed By: #### L [id number] ####[facility] ([facility])[address] [place] [address] Urea nitrogen [Mass/Vol] 25 mg/dL Normal 7-25 [facility] Comment on above: Performed By: #### L [id number] ####[facility] ([facility])[address] [place] [address] UREA NITROGEN/CREATININE (MASS RATIO) IN SER/PLAS 24.5 Normal [facility] Comment on above: Performed By: #### L [id number] ####[facility] ([facility])[address] [place] [address] CBC WITH AUTO DIFFERENTIALon 03-05-2024 Basophils (Bld) [#/Vol] 0.01 10*3/uL Normal 0.00-0.20 [facility] Comment on above: Performed By: #### L [id number] ####[facility] ([facility])[address] [place] [address] Basophils/100 WBC (Bld) 0.1 % Normal 0.0-1.0 [facility] Comment on above: Performed By: #### L [id number] ####[facility] [place] [address] Eosinophils (Bld) [#/Vol] 0.08 10*3/uL Normal 0.00-0.5 0 [facility] Comment on above: Performed By: #### L [id number] ####[facility] ([facility])[address] [place] [address] Eosinophils/100 WBC (Bld) 1.0 % Normal 0.0-6.0 [facility] Comment on above: Performed By: #### L [id number] ####[facility] [place] [address] Erythrocyte distribution width (RBC) [Ratio] 13.2 % Normal 11.5-15.0 [facility] Comment on above: Performed By: #### L [id number] ####[facility] ([facility] [place] [address] ERYTHROCYTE MEAN CORPUSCULAR HEMOGLOBIN CONCENTRATION (G/DL) BY AUTOMATED 32.3 g/dL Normal 32.0-35.0 [facility] Comment on above: Performed By: #### L [id number] ####[facility] ([facility])[address] [place] [address] Hematocrit (Bld) [Volume fraction] 37.5 % Low 39.0-55.0 [facility] Comment on above: Performed By: #### L [id number] ####[facility] ([facility])[address] [place] [address] Hemoglobin (Bld) [Mass/Vol] 12.1 g/dL Low 13.0-17.0 [facility] Comment on above: Performed By: #### L [id number] ####[facility] ([facility])[address] [place] [address] Immature granulocytes (Bld) [#/Vol] 0.09 10*3/uL Normal 0.00-0.20 [facility] Comment on above: Performed By: #### L [id number] ####[facility] ([facility])[address] [place] [address] Immature granulocytes/100 WBC (Bld) 1.1 % High 0.0-1.0 [facility] Comment on above: Performed By: #### L [id number] ####[facility] ([facility])[address] [place] [address] Lymphocytes (Bld) [#/Vol] 1.27 10*3/uL Normal 1.20-4.0 0 [facility] Comment on above: Performed By: #### L [id number] ####[facility] ([facility])[address] [place] [address] Lymphocytes/100 WBC (Bld) 15.4 % Low 20.0-45.0 [facility] Comment on above: Performed By: #### L [id number] ####[facility] ([facility])[address] [place] [address] MCH (RBC) [Entitic mass] 31.6 pg Normal 27.0-33.0 [facility] Comment on above: Performed By: #### L [id number] ####[facility] ([facility])[address] [place] [address] MCV (RBC) [Entitic vol] 97.9 fL Normal 82.0-98.0 [facility] Comment on above: Performed By: #### L [id number] ####[facility] ([facility])[address] [place] [address] Monocytes (Bld) [#/Vol] 0.65 10*3/uL Normal 0.10-1.00 [facility] Comment on above: Performed By: #### L [id number] ####[facility] ([facility])[address] [place] [address] Monocytes/100 WBC (Bld) 7.9 % Normal 5.0-12.0 [facility] Comment on above: Performed By: #### L [id number] ####[facility] [place] [address] Neutrophils (Bld) [#/Vol] 6.14 10*3/uL Normal 1.60-7.6 0 [facility] Comment on above: Performed By: #### L [id number] ####[facility] ([facility] [address] Neutrophils/100 WBC (Bld) 74.5 % High 40.0-72.0 [facility] Comment on above: Performed By: #### L [id number] ####[facility] ([facility])[address] [address] NRBC (PER 100 WBCS) BY AUTOMATED COUNT 0.0 % Normal 0 [facility] Comment on above: Performed By: #### L [id number] ####[facility] ([facility])[address] [address] PLATELETS (10*3/UL) IN BLOOD AUTOMATED COUNT 190 10*3/uL Normal 150-400 [facility] Comment on above: Performed By: #### L [id number] ####[facility] ([facility])[address] [address] RBC (Bld) [#/Vol] 3.83 10*6/uL Low 4.20-5.70 [facility] Comment on above: Performed By: #### L [id number] ####[facility] ([facility])[address] [address] WBC (Bld) [#/Vol] 8.24 10*3/uL Normal 4.00-10.60 [facility] Comment on above: Performed By: #### L [id number] ####[facility] ([facility])[address] [address] MAGNESIUMon 03-05-2024 Magnesium [Mass/Vol] 1.8 mg/dL Low 1.9-2.7 [facility] Comment on above: Performed By: #### L [id number] ####[facility] ([facility])[address] [place] [address] PHOSPHORUSon 03-05-2024 Magnesium [Mass/Vol] 3.8 mg/dL Normal 2.5-5.0 [facility] Comment on above: Performed By: #### L [id number] ####[facility] ([facility])[address] [place] [address] 30on 03-04-2024 30 Normal [facility] 30 The patient is Moderately Stable - Low risk of patient condition declining or worsening The patient's goals for the shift include Rest The clinical goals for the shift include VSS, safety, rest Normal [facility] ANESon 03-04-2024 ANES Normal [facility] APTTon 03-04-2024 ACTIVATED PARTIAL THROMBOPLASTIN TIME IN PPP BY COAGULATION ASSAY 110.7 Seconds High 25.0-35.0 [facility] Comment on above: Result Comment: Clin ical significance of the APTT is questionable in the presence of heparin. Performed By: #### L [id number] ####[facility] ([facility])[address] [place] [address] ACTIVATED PARTIAL THROMBOPLASTIN TIME IN PPP BY COAGULATION ASSAY 135.9 Seconds Critically high 25.0-35.0 [facility] Comment on above: Result Comment: Clin ical significance of the APTT is questionable in the presence of heparin. Performed By: #### L [id number] ####[facility] ([facility])[address] [place] [address] B-TYPE NATRIURETIC PEPTIDEon 03-04-2024 Natriuretic peptide B (Bld) [Mass/Vol] 178 pg/mL High 0-100 [facility] Comment on above: Performed By: #### L [id number] ####[facility] ([facility])[address] [place] [address] BASIC METABOLIC PANELon 10-2 Anion gap [Moles/Vol] 11 mmol/L Normal 7-20 [facility] Comment on above: Performed By: #### L [id number] ####[facility] ([facility])[address] [place] [address] Calcium [Mass/Vol] 8.5 mg/dL Low 8.6-10.3 [facility] Comment on above: Performed By: #### L [id number] ####[facility] [place] [address] Chloride [Moles/Vol] 104 mmol/L Normal 98-107 [facility] Comment on above: Performed By: #### L [id number] ####[facility] ([facility])[address] [place] [address] CO2 [Moles/Vol] 29 mmol/L Normal 21-31 [facility] Comment on above: Performed By: #### L [id number] ####[facility] ([facility])[address] [place] [address] Creatinine [Mass/Vol] 0.94 mg/dL Normal 0.70-1.30 [facility] Comment on above: Performed By: #### L [id number] ####[facility] ([facility])[address] [place] [address] GLOMERULAR FILTRATION RATE ML/MIN/1.73 SQ M.PREDICTED 83.0 mL/min/1.73m*2 Normal >60.0 [facility] Comment on above: Result Comment: [facility]???s estimated glomerular filtration rate [...] of individuals. Performed By: #### L [id number] ####[facility] ([facility])[address] [place] [address] Glucose [Mass/Vol] 108 mg/dL High 70-100 [facility] Comment on above: Performed By: #### L [id number] ####[facility] [place] [address] Potassium [Moles/Vol] 3.8 mmol/L Normal 3.5-5.1 [facility] Comment on above: Performed By: #### L [id number] ####[facility] [place] [address] Sodium [Moles/Vol] 140 mmol/L Normal 136-145 [facility] Comment on above: Performed By: #### L [id number] ####[facility] ([facility])[address] [place] [address] Urea nitrogen [Mass/Vol] 29 mg/dL High 7-25 [facility] Comment on above: Performed By: #### L [id number] ####[facility] ([facility])[address] [place] [address] UREA NITROGEN/CREATININE (MASS RATIO) IN SER/PLAS 30.9 Normal [facility] Comment on above: Performed By: #### L [id number] ####[facility] ([facility])[address] [place] [address] CBC WITH AUTO DIFFERENTIALon 03-04-2024 Basophils (Bld) [#/Vol] 0.02 10*3/uL Normal 0.00-0.20 [facility] Comment on above: Performed By: #### L [id number] ####[facility] [place] [address] Basophils/100 WBC (Bld) 0.2 % Normal 0.0-1.0 [facility] Comment on above: Performed By: #### L [id number] ####[facility] ([facility] [place] [address] Eosinophils (Bld) [#/Vol] 0.00 10*3/uL Normal 0.00-0.5 0 [facility] Comment on above: Performed By: #### L [id number] ####[facility] ([facility])[address] [place] [address] Eosinophils/100 WBC (Bld) 0.0 % Normal 0.0-6.0 [facility] Comment on above: Performed By: #### L [id number] ####[facility] ([facility])[address] [place] [address] Erythrocyte distribution width (RBC) [Ratio] 13.2 % Normal 11.5-15.0 [facility] Comment on above: Performed By: #### L [id number] ####[facility] ([facility])[address] [place] [address] ERYTHROCYTE MEAN CORPUSCULAR HEMOGLOBIN CONCENTRATION (G/DL) BY AUTOMATED 31.5 g/dL Low 32.0-35.0 [facility] Comment on above: Performed By: #### L [id number] ####[facility] ([facility])[address] [place] [address] Hematocrit (Bld) [Volume fraction] 38.7 % Low 39.0-55.0 [facility] Comment on above: Performed By: #### L [id number] ####[facility] ([facility])[address] [place] [address] Hemoglobin (Bld) [Mass/Vol] 12.2 g/dL Low 13.0-17.0 [facility] Comment on above: Performed By: #### L [id number] ####[facility] ([facility])[address] [place] [address] Immature granulocytes (Bld) [#/Vol] 0.12 10*3/uL Normal 0.00-0.20 [facility] Comment on above: Performed By: #### L [id number] ####[facility] ([facility])[address] [place] [address] Immature granulocytes/100 WBC (Bld) 1.2 % High 0.0-1.0 [facility] Comment on above: Performed By: #### L [id number] ####[facility] ([facility])[address] [place] [address] Lymphocytes (Bld) [#/Vol] 1.13 10*3/uL Low 1.20-4.0 0 [facility] Comment on above: Performed By: #### L [id number] ####[facility] ([facility])[address] [place] [address] Lymphocytes/100 WBC (Bld) 11.3 % Low 20.0-45.0 [facility] Comment on above: Performed By: #### L [id number] ####[facility] ([facility])[address] [place] [address] MCH (RBC) [Entitic mass] 31.7 pg Normal 27.0-33.0 [facility] Comment on above: Performed By: #### L [id number] ####[facility] ([facility])[address] [place] [address] MCV (RBC) [Entitic vol] 100.5 fL High 82.0-98.0 [facility] Comment on above: Performed By: #### L [id number] ####[facility] ([facility])[address] [place] [address] Monocytes (Bld) [#/Vol] 0.87 10*3/uL Normal 0.10-1.00 [facility] Comment on above: Performed By: #### L [id number] ####[facility] ([facility])[address] [place] [address] Monocytes/100 WBC (Bld) 8.7 % Normal 5.0-12.0 [facility] Comment on above: Performed By: #### L [id number] ####[facility] ([facility])[address] [place] [address] Neutrophils (Bld) [#/Vol] 7.88 10*3/uL High 1.60-7.6 0 [facility] Comment on above: Performed By: #### L [id number] ####[facility] ([facility])[address] [place] [address] Neutrophils/100 WBC (Bld) 78.6 % High 40.0-72.0 [facility] Comment on above: Performed By: #### L [id number] ####[facility] ([facility])[address] [place] [address] NRBC (PER 100 WBCS) BY AUTOMATED COUNT 0.0 % Normal 0 [facility] Comment on above: Performed By: #### L [id number] ####[facility] ([facility])[address] [address] PLATELETS (10*3/UL) IN BLOOD AUTOMATED COUNT 182 10*3/uL Normal 150-400 [facility] Comment on above: Performed By: #### L [id number] ####[facility] ([facility])[address] [place] [address] RBC (Bld) [#/Vol] 3.85 10*6/uL Low 4.20-5.70 [facility] Comment on above: Performed By: #### L [id number] ####[facility] ([facility])[address] [address] WBC (Bld) [#/Vol] 10.02 10*3/uL Normal 4.00-10.60 [facility] Comment on above: Performed By: #### L [id number] ####[facility] ([facility])[address] [place] [address] CONSULTon 03-04-2024 CONSULT [facility] HPon 03-04-2024 HP [facility] MAGNESIUMon 03-04-2024 Magnesium [Mass/Vol] 1.8 mg/dL Low 1.9-2.7 [facility] Comment on above: Performed By: #### L [id number] ####[facility] ([facility])[address] [place] [address] PHOSPHORUSon 03-04-2024 Magnesium [Mass/Vol] 3.1 mg/dL Normal 2.5-5.0 [facility] Comment on above: Performed By: #### L [id number] ####[facility] [address] 30on 03-03-2024 30 Normal [facility] 30 Normal [facility] 30 Normal [facility] 30 Normal [facility] APTTon 03-03-2024 ACTIVATED PARTIAL THROMBOPLASTIN TIME IN PPP BY COAGULATION ASSAY 147.8 Seconds Critically high 25.0-35.0 [facility] Comment on above: Result Comment: Clin ical significance of the APTT is questionable in the presence of heparin. Performed By: #### L [id number] ####[facility] ([facility])[address] [place] [address] ACTIVATED PARTIAL THROMBOPLASTIN TIME IN PPP BY COAGULATION ASSAY 124.5 Seconds High 25.0-35.0 [facility] Comment on above: Result Comment: Clin ical significance of the APTT is questionable in the presence of heparin. Performed By: #### L [id number] ####[facility] ([facility])[address] [place] [address] ACTIVATED PARTIAL THROMBOPLASTIN TIME IN PPP BY COAGULATION ASSAY 169.5 Seconds Critically high 25.0-35.0 [facility] Comment on above: Order Comment: Check aPTT every 6 hours while on heparin infusion, or per protocol. Result Comment: Clin ical significance of the APTT is questionable in the presence of heparin. Performed By: #### L [id number] ####[facility] ([facility])[address] [place] [address] BASIC METABOLIC PANELon 02-13 Anion gap [Moles/Vol] 9 mmol/L Normal 7-20 [facility] Comment on above: Performed By: #### L [id number] ####[facility] ([facility])[address] [place] [address] Calcium [Mass/Vol] 8.2 mg/dL Low 8.6-10.3 [facility] Comment on above: Performed By: #### L [id number] ####[facility] ([facility])[address] [place] [address] Chloride [Moles/Vol] 103 mmol/L Normal 98-107 [facility] Comment on above: Performed By: #### L [id number] ####[facility] ([facility])[address] [place] [address] CO2 [Moles/Vol] 32 mmol/L High 21-31 [facility] Comment on above: Performed By: #### L [id number] ####[facility] ([facility])[address] [facility] [address] Creatinine [Mass/Vol] 0.93 mg/dL Normal 0.70-1.30 [facility] Comment on above: Performed By: #### L [id number] ####[facility] ([facility])[address] [place] [address] GLOMERULAR FILTRATION RATE ML/MIN/1.73 SQ M.PREDICTED 84.0 mL/min/1.73m*2 Normal >60.0 [facility] Comment on above: Result Comment: [facility]???s estimated glomerular filtration rate [...] of individuals. Performed By: #### L [id number] ####[facility] ([facility])[address] [place] [address] Glucose [Mass/Vol] 110 mg/dL High 70-100 [facility] Comment on above: Performed By: #### L [id number] ####[facility] ([facility])[address] [place] [address] Potassium [Moles/Vol] 3.3 mmol/L Low 3.5-5.1 [facility] Comment on above: Performed By: #### L [id number] ####[facility] ([facility])[address] [place] [address] Sodium [Moles/Vol] 141 mmol/L Normal 136-145 [facility] Comment on above: Performed By: #### L [id number] ####[facility] ([facility])[address] [place] [address] Urea nitrogen [Mass/Vol] 27 mg/dL High 7- [facility] Comment on above: Performed By: #### L [id number] ####[facility] ([facility])[address] [place] [place] [address] UREA NITROGEN/CREATININE (MASS RATIO) IN SER/PLAS 29.0 Normal [facility] Comment on above: Performed By: #### L [id number] ####[facility] [place] [address] CBC WITH AUTO DIFFERENTIALon 03-03-2024 Basophils (Bld) [#/Vol] 0.01 10*3/uL Normal 0.00-0.20 [facility] Comment on above: Performed By: #### L [id number] ####[facility] ([facility])[address] [place] [address] Basophils/100 WBC (Bld) 0.1 % Normal 0.0-1.0 [facility] Comment on above: Performed By: #### L [id number] ####[facility] [place] [address] Eosinophils (Bld) [#/Vol] 0.00 10*3/uL Normal 0.00-0.5 0 [facility] Comment on above: Performed By: #### L [id number] ####[facility] [place] [address] Eosinophils/100 WBC (Bld) 0.0 % Normal 0.0-6.0 [facility] Comment on above: Performed By: #### L [id number] ####[facility] [place] [address] Erythrocyte distribution width (RBC) [Ratio] 13.2 % Normal 11.5-15.0 [facility] Comment on above: Performed By: #### L [id number] ####[facility] ([facility])[address] [place] [address] ERYTHROCYTE MEAN CORPUSCULAR HEMOGLOBIN CONCENTRATION (G/DL) BY AUTOMATED 32.1 g/dL Normal 32.0-35.0 [facility] Comment on above: Performed By: #### L [id number] ####[facility] ([facility])[address] [place] [address] Hematocrit (Bld) [Volume fraction] 38.0 % Low 39.0-55.0 [facility] Comment on above: Performed By: #### L [id number] ####[facility] ([facility])[address] [place] [address] Hemoglobin (Bld) [Mass/Vol] 12.2 g/dL Low 13.0-17.0 [facility] Comment on above: Performed By: #### L [id number] ####[facility] [place] [address] Immature granulocytes (Bld) [#/Vol] 0.07 10*3/uL Normal 0.00-0.20 [facility] Comment on above: Performed By: #### L [id number] ####[facility] ([facility])[address] [place] [address] Immature granulocytes/100 WBC (Bld) 0.7 % Normal 0.0-1.0 [facility] Comment on above: Performed By: #### L [id number] ####[facility] ([facility])[address] [place] [address] Lymphocytes (Bld) [#/Vol] 1.03 10*3/uL Low 1.20-4.0 0 [facility] Comment on above: Performed By: #### L [id number] ####[facility] ([facility])[address] [place] [address] Lymphocytes/100 WBC (Bld) 10.2 % Low 20.0-45.0 [facility] Comment on above: Performed By: #### L [id number] ####[facility] ([facility])[address] [place] [address] MCH (RBC) [Entitic mass] 31.4 pg Normal 27.0-33.0 [facility] Comment on above: Performed By: #### L [id number] ####[facility] ([facility])[address] [place] [address] MCV (RBC) [Entitic vol] 97.7 fL Normal 82.0-98.0 [facility] Comment on above: Performed By: #### L [id number] ####[facility] [place] [address] Monocytes (Bld) [#/Vol] 1.01 10*3/uL High 0.10-1.00 [facility] Comment on above: Performed By: #### L [id number] ####[facility] ([facility])[address] [place] [address] Monocytes/100 WBC (Bld) 10.0 % Normal 5.0-12.0 [facility] Comment on above: Performed By: #### L [id number] ####[facility] ([facility])[address] [place] [address] Neutrophils (Bld) [#/Vol] 8.01 10*3/uL High 1.60-7.6 0 [facility] Comment on above: Performed By: #### L [id number] ####[facility] ([facility])[address] [place] [address] Neutrophils/100 WBC (Bld) 79.0 % High 40.0-72.0 [facility] Comment on above: Performed By: #### L [id number] ####[facility] ([facility])[address] [place] [address] NRBC (PER 100 WBCS) BY AUTOMATED COUNT 0.0 % Normal 0 [facility] Comment on above: Performed By: #### L [id number] ####[facility] ([facility])[address] [place] [address] PLATELETS (10*3/UL) IN BLOOD AUTOMATED COUNT 164 10*3/uL Normal 150-400 [facility] Comment on above: Performed By: #### L [id number] ####[facility] ([facility])[address] [place] [address] RBC (Bld) [#/Vol] 3.89 10*6/uL Low 4.20-5.70 [facility] Comment on above: Performed By: #### L [id number] ####[facility] ([facility])[address] [place] [address] WBC (Bld) [#/Vol] 10.13 10*3/uL Normal 4.00-10.60 [facility] Comment on above: Performed By: #### L [id number] ####[facility] ([facility])[address] [place] [address] CLOSTRIDIOIDES DIFFICILE DNA AMPLIFICATIONon 03-03-2024 CLOSTRIDIOIDES DIFFICILE (TOXIN A/B) Negative Normal Negative [facility] Comment on above: Order [...] suspected of having Clostridioides difficile-infection (CDI). The [place] C. difficile Assay is intended for use as an aid in diagnosis of CDI. The assay utilizes helicase-dependent amplification (HDA) for the amplification of a highly conserved fragment of the Toxin A gene sequence. Performed By: #### L [id number] ####[facility] ([facility])[address] [place] [address] MAGNESIUMon 03-03-2024 Magnesium [Mass/Vol] 1.9 mg/dL Normal 1.9-2.7 [facility] Comment on above: Performed By: #### L [id number] ####[facility] ([facility])[address] [place] [address] NURSNOTEon 03-03-2024 NURSNOTE Normal [facility] NURSNOTE Normal [facility] PHOSPHORUSon 03-03-2024 Magnesium [Mass/Vol] 2.7 mg/dL Normal 2.5-5.0 [facility] Comment on above: Performed By: #### L [id number] ####[facility] ([facility])[address] [place] [address] 30on 03-02-2024 30 The patient is Moderately Stable - Low risk of patient condition declining or worsening The patient's goals for the shift include Comfort The clinical goals for the shift include VSS, safety Normal [facility] APTTon 03-02-2024 ACTIVATED PARTIAL THROMBOPLASTIN TIME IN PPP BY COAGULATION ASSAY 127.4 Seconds High 25.0-35.0 [facility] Comment on above: Order Comment: Check aPTT every 6 hours while on heparin infusion, or per protocol. Result Comment: Clin ical significance of the APTT is questionable in the presence of heparin. Performed By: #### L [id number] ####[facility] ([facility])[address] [place] [address] ACTIVATED PARTIAL THROMBOPLASTIN TIME IN PPP BY COAGULATION ASSAY 106.1 Seconds High 25.0-35.0 [facility] Comment on above: Order Comment: Check aPTT every 6 hours while on heparin infusion, or per protocol. Result Comment: Clin ical significance of the APTT is questionable in the presence of heparin. Performed By: #### L [id number] ####[facility] ([facility])[address] [place] [address] BASIC METABOLIC PANELon 02-12 Anion gap [Moles/Vol] 10 mmol/L Normal 7-20 [facility] Comment on above: Performed By: #### L [id number] ####[facility] ([facility])[address] [place] [address] Calcium [Mass/Vol] 8.1 mg/dL Low 8.6-10.3 [facility] Comment on above: Performed By: #### L [id number] ####[facility] ([facility])[address] [place] [address] Chloride [Moles/Vol] 104 mmol/L Normal 98-107 [facility] Comment on above: Performed By: #### L [id number] ####[facility] ([facility])[address] [place] [address] CO2 [Moles/Vol] 30 mmol/L Normal 21-31 [facility] Comment on above: Performed By: #### L [id number] ####[facility] ([facility])[address] [place] [address] Creatinine [Mass/Vol] 0.97 mg/dL Normal 0.70-1.30 [facility] Comment on above: Performed By: #### L [id number] ####[facility] ([facility])[address] [place] [address] GLOMERULAR FILTRATION RATE ML/MIN/1.73 SQ M.PREDICTED 79.9 mL/min/1.73m*2 Normal >60.0 U [facility] Comment on above: Result Comment: [facility]???s estimated glomerular filtration rate [...] of individuals. Performed By: #### L [id number] ####[facility] ([facility])[address] [place] [address] Glucose [Mass/Vol] 136 mg/dL High 70-100 [facility] Comment on above: Performed By: #### L [id number] ####[facility] [place] [address] Potassium [Moles/Vol] 3.0 mmol/L Low 3.5-5.1 [facility] Comment on above: Performed By: #### L [id number] ####[facility] ([facility] [place] [address] Sodium [Moles/Vol] 141 mmol/L Normal 136-145 [facility] Comment on above: Performed By: #### L [id number] ####[facility] [place] [address] Urea nitrogen [Mass/Vol] 37 mg/dL High 7-25 [facility] Comment on above: Performed By: #### L [id number] ####[facility] ([facility])[address] [place] [address] UREA NITROGEN/CREATININE (MASS RATIO) IN SER/PLAS 38.1 Normal [facility] Comment on above: Performed By: #### L [id number] ####[facility] ([facility])[address] [place] [address] CBC WITH AUTO DIFFERENTIALon 03-02-2024 Basophils (Bld) [#/Vol] 0.01 10*3/uL Normal 0.00-0.20 [facility] Comment on above: Performed By: #### L [id number] ####[facility] ([facility])[address] [place] [address] Basophils/100 WBC (Bld) 0.1 % Normal 0.0-1.0 [facility] Comment on above: Performed By: #### L [id number] ####[facility] [place] [address] Eosinophils (Bld) [#/Vol] 0.00 10*3/uL Normal 0.00-0.5 0 [facility] Comment on above: Performed By: #### L [id number] ####[facility] ([facility])[address] [place] [address] Eosinophils/100 WBC (Bld) 0.0 % Normal 0.0-6.0 [facility] Comment on above: Performed By: #### L [id number] ####[facility] ([facility])[address] [place] [address] Erythrocyte distribution width (RBC) [Ratio] 12.9 % Normal 11.5-15.0 [facility] Comment on above: Performed By: #### L [id number] ####[facility] ([facility])[address] [place] [address] ERYTHROCYTE MEAN CORPUSCULAR HEMOGLOBIN CONCENTRATION (G/DL) BY AUTOMATED 32.3 g/dL Normal 32.0-35.0 [facility] Comment on above: Performed By: #### L [id number] ####[facility] ([facility])[address] [place] [address] Hematocrit (Bld) [Volume fraction] 36.8 % Low 39.0-55.0 [facility] Comment on above: Performed By: #### L [id number] ####[facility] ([facility])[address] [place] [address] Hemoglobin (Bld) [Mass/Vol] 11.9 g/dL Low 13.0-17.0 [facility] Comment on above: Performed By: #### L [id number] ####[facility] ([facility])[address] [place] [address] Immature granulocytes (Bld) [#/Vol] 0.05 10*3/uL Normal 0.00-0.20 [facility] Comment on above: Performed By: #### L [id number] ####[facility] ([facility])[address] [place] [address] Immature granulocytes/100 WBC (Bld) 0.7 % Normal 0.0-1.0 [facility] Comment on above: Performed By: #### L [id number] ####[facility] ([facility])[address] [place] [address] Lymphocytes (Bld) [#/Vol] 0.58 10*3/uL Low 1.20-4.0 0 [facility] Comment on above: Performed By: #### L [id number] ####[facility] ([facility])[address] [place] [address] Lymphocytes/100 WBC (Bld) 7.8 % Low 20.0-45.0 [facility] Comment on above: Performed By: #### L [id number] ####[facility] ([facility] [place] [address] MCH (RBC) [Entitic mass] 32.1 pg Normal 27.0-33.0 [facility] Comment on above: Performed By: #### L [id number] ####[facility] ([facility])[address] [place] [address] MCV (RBC) [Entitic vol] 99.2 fL High 82.0-98.0 [facility] Comment on above: Performed By: #### L [id number] ####[facility] ([facility])[address] [place] [address] Monocytes (Bld) [#/Vol] 0.56 10*3/uL Normal 0.10-1.00 [facility] Comment on above: Performed By: #### L [id number] ####[facility] ([facility])[address] [place] [address] Monocytes/100 WBC (Bld) 7.5 % Normal 5.0-12.0 [facility] Comment on above: Performed By: #### L [id number] ####[facility] ([facility])[address] [place] [address] Neutrophils (Bld) [#/Vol] 6.28 10*3/uL Normal 1.60-7.6 0 [facility] Comment on above: Performed By: #### L [id number] ####[facility] ([facility])[address] [place] [address] Neutrophils/100 WBC (Bld) 83.9 % High 40.0-72.0 [facility] Comment on above: Performed By: #### L [id number] ####[facility] ([facility])[address] [place] [address] NRBC (PER 100 WBCS) BY AUTOMATED COUNT 0.0 % Normal 0 [facility] Comment on above: Performed By: #### L [id number] ####[facility] ([facility])[address] [place] [address] PLATELETS (10*3/UL) IN BLOOD AUTOMATED COUNT 159 10*3/uL Normal 150-400 [facility] Comment on above: Performed By: #### L [id number] ####[facility] ([facility])[address] [place] [address] RBC (Bld) [#/Vol] 3.71 10*6/uL Low 4.20-5.70 [facility] Comment on above: Performed By: #### L [id number] ####[facility] ([facility])[address] [place] [address] WBC (Bld) [#/Vol] 7.48 10*3/uL Normal 4.00-10.60 [facility] Comment on above: Performed By: #### L [id number] ####[facility] ([facility])[address] [place] [address] MAGNESIUMon 03-02-2024 Magnesium [Mass/Vol] 1.9 mg/dL Normal 1.9-2.7 [facility] Comment on above: Performed By: #### L [id number] ####[facility] ([facility])[address] [place] [address] NURSNOTEon 03-02-2024 NURSNOTE Normal [facility] PHOSPHORUSon 03-02-2024 Magnesium [Mass/Vol] 3.4 mg/dL Normal 2.5-5.0 [facility] Comment on above: Performed By: #### L [id number] ####[facility] ([facility])[address] [place] [address] VENOUS BLOOD GAS WITH IONIZE D CALCIUMon 03-02-2024 Base excess Calc (BldV) [Moles/Vol] 4.3 mmol/L Normal [facility] Comment on above: Performed By: #### L [id number] ####[facility]PIR[facility] [id number] [place], [place] [address] CALCIUM IONIZED (MMOL/L) IN BLOOD 1.19 mmol/L Normal 1.15-1.33 [facility] Comment on above: Performed By: #### L [id number] ####[facility] RESPIRAT[facility] [id number] [place] [address] [facility] CO2 (BldV) [Partial pressure] 47 mm[Hg] Normal 40-50 [facility] Comment on above: Performed By: #### L [id number] ####[facility] RESPIRAT[facility] [id number] [place] [address] [facility] HCO3 (Bld) [Moles/Vol] 29.8 mmol/L Normal [facility] Comment on above: Performed By: #### L [id number] ####[facility] RESPIRAT[facility] [id number] [place] [address] [facility] Oxygen (BldV) [Partial pressure] 46 mm[Hg] High 35-45 [facility] Comment on above: Performed By: #### L [id number] ####[facility] RESPIRAT[facility] [id number] [place] [address] [facility] OXYGEN SATURATION (%) IN VENOUS BLOOD 76.1 % High 65.0-75.0 [facility] Comment on above: Performed By: #### L [id number] ####[facility] RESPIRAT[facility] [id number] [place] [address] [facility] PH OF VENOUS BLOOD 7.41 Normal 7.31-7.41 [facility] Comment on above: Performed By: #### L [id number] ####[facility] RESPIR[facility] [id number] [place] [address] [facility] 30on 03-01-2024 30 Normal [facility] BASIC METABOLIC PANELon 02-12 Anion gap [Moles/Vol] 10 mmol/L Normal 7-20 [facility] Comment on above: Performed By: #### L [id number] ####[facility] [place] [address] Calcium [Mass/Vol] 8.3 mg/dL Low 8.6-10.3 [facility] Comment on above: Performed By: #### L [id number] ####[facility] ([facility] [place] [address] Chloride [Moles/Vol] 104 mmol/L Normal 98-107 [facility] Comment on above: Performed By: #### L [id number] ####[facility] ([facility])[address] [place] [address] CO2 [Moles/Vol] 29 mmol/L Normal 21-31 [facility] Comment on above: Performed By: #### L [id number] ####[facility] ([facility])[address] [place] [address] Creatinine [Mass/Vol] 0.99 mg/dL Normal 0.70-1.30 [facility] Comment on above: Performed By: #### L [id number] ####[facility] ([facility])[address] [place] [address] GLOMERULAR FILTRATION RATE ML/MIN/1.73 SQ M.PREDICTED 78.0 mL/min/1.73m*2 Normal >60.0 [facility] Comment on above: Result Comment: [facility]???s estimated glomerular filtration rate [...] of individuals. Performed By: #### L [id number] ####[facility] ([facility])[address] [place] [address] Glucose [Mass/Vol] 156 mg/dL High 70-100 [facility] Comment on above: Performed By: #### L [id number] ####[facility] ([facility])[address] [place] [address] Potassium [Moles/Vol] 3.4 mmol/L Low 3.5-5.1 [facility] Comment on above: Performed By: #### L [id number] ####[facility] [facility] ([facility])[address] [place] [address] Sodium [Moles/Vol] 140 mmol/L Normal 136-145 [facility] Comment on above: Performed By: #### L [id number] ####[facility] ([facility])[address] [place] [address] Urea nitrogen [Mass/Vol] 35 mg/dL High 7-25 [facility] Comment on above: Performed By: #### L [id number] ####[facility] ([facility])[address] [place] [address] UREA NITROGEN/CREATININE (MASS RATIO) IN SER/PLAS 35.4 Normal [facility] Comment on above: Performed By: #### L [id number] ####[facility] ([facility])[address] [place] [address] BLOOD CULTUREon 03-01-2024 Bacteria identified Cx Nom (Bld) No growth at 5 days Normal [facility] Comment on above: Performed By: #### L [id number] ####[facility] ([facility])[address] [place] [address] CBC WITH AUTO DIFFERENTIALon 03-01-2024 Basophils (Bld) [#/Vol] 0.01 10*3/uL Normal 0.00-0.20 [facility] Comment on above: Performed By: #### L [id number] ####[facility] ([facility])[address] [place] [address] Basophils/100 WBC (Bld) 0.1 % Normal 0.0-1.0 U [facility] Comment on above: Performed By: #### L [id number] ####[facility] ([facility])[address] [place] [address] Eosinophils (Bld) [#/Vol] 0.00 10*3/uL Normal 0.00-0.5 0 [facility] Comment on above: Performed By: #### L [id number] ####[facility] ([facility])[address] [place] [address] Eosinophils/100 WBC (Bld) 0.0 % Normal 0.0-6.0 [facility] Comment on above: Performed By: #### L [id number] ####[facility] [place] [address] Erythrocyte distribution width (RBC) [Ratio] 12.9 % Normal 11.5-15.0 [facility] Comment on above: Performed By: #### L [id number] ####[facility] [place] [address] ERYTHROCYTE MEAN CORPUSCULAR HEMOGLOBIN CONCENTRATION (G/DL) BY AUTOMATED 32.1 g/dL Normal 32.0-35.0 [facility] Comment on above: Performed By: #### L [id number] ####[facility] ([facility])[address] [place] [address] Hematocrit (Bld) [Volume fraction] 38.9 % Low 39.0-55.0 [facility] Comment on above: Performed By: #### L [id number] ####[facility] ([facility])[address] [place] [address] Hemoglobin (Bld) [Mass/Vol] 12.5 g/dL Low 13.0-17.0 [facility] Comment on above: Performed By: #### L [id number] ####[facility] ([facility])[address] [place] [address] Immature granulocytes (Bld) [#/Vol] 0.05 10*3/uL Normal 0.00-0.20 [facility] Comment on above: Performed By: #### L [id number] ####[facility] ([facility])[address] [place] [address] Immature granulocytes/100 WBC (Bld) 0.5 % Normal 0.0-1.0 [facility] Comment on above: Performed By: #### L [id number] ####[facility] ([facility])[address] [place] [address] Lymphocytes (Bld) [#/Vol] 0.42 10*3/uL Low 1.20-4.0 0 [facility] Comment on above: Performed By: #### L [id number] ####[facility] ([facility])[address] [place] [address] Lymphocytes/100 WBC (Bld) 4.2 % Low 20.0-45.0 [facility] Comment on above: Performed By: #### L [id number] ####[facility] ([facility])[address] [place] [address] MCH (RBC) [Entitic mass] 31.9 pg Normal 27.0-33.0 [facility] Comment on above: Performed By: #### L [id number] ####[facility] ([facility])[address] [place] [address] MCV (RBC) [Entitic vol] 99.2 fL High 82.0-98.0 U [facility] Comment on above: Performed By: #### L [id number] ####[facility] ([facility])[address] [place] [address] Monocytes (Bld) [#/Vol] 0.45 10*3/uL Normal 0.10-1.00 [facility] Comment on above: Performed By: #### L [id number] ####[facility] ([facility])[address] [place] [address] Monocytes/100 WBC (Bld) 4.5 % Low 5.0-12.0 U [facility] Comment on above: Performed By: #### L [id number] ####[facility] ([facility])[address] [place] [address] Neutrophils (Bld) [#/Vol] 9.11 10*3/uL High 1.60-7.6 0 [facility] Comment on above: Performed By: #### L [id number] ####[facility] ([facility])[address] [place] [address] Neutrophils/100 WBC (Bld) 90.7 % High 40.0-72.0 [facility] Comment on above: Performed By: #### L [id number] ####[facility] ([facility])[address] [place] [address] NRBC (PER 100 WBCS) BY AUTOMATED COUNT 0.0 % Normal 0 [facility] Comment on above: Performed By: #### L [id number] ####[facility] ([facility])[address] [place] [address] PLATELETS (10*3/UL) IN BLOOD AUTOMATED COUNT 165 10*3/uL Normal 150-400 [facility] Comment on above: Performed By: #### L [id number] ####[facility] ([facility])[address] [place], [place] [address] RBC (Bld) [#/Vol] 3.92 10*6/uL Low 4.20-5.70 [facility] Comment on above: Performed By: #### L [id number] ####[facility] ([facility])[address] [place], [place] [address] WBC (Bld) [#/Vol] 10.04 10*3/uL Normal 4.00-10.60 [facility] Comment on above: Performed By: #### L [id number] ####[facility] ([facility])[address] [place] [address] Basophils (Bld) [#/Vol] 0.01 10*3/uL Normal 0.00-0.20 [facility] Comment on above: Performed By: #### L [id number] ####[facility] ([facility])[address] [place] [address] Basophils/100 WBC (Bld) 0.1 % Normal 0.0-1.0 [facility] Comment on above: Performed By: #### L [id number] ####[facility] ([facility])[address] [place] [address] Eosinophils (Bld) [#/Vol] 0.00 10*3/uL Normal 0.00-0.5 0 [facility] Comment on above: Performed By: #### L [id number] ####[facility] ([facility])[address] [place] [address] Eosinophils/100 WBC (Bld) 0.0 % Normal 0.0-6.0 [facility] Comment on above: Performed By: #### L [id number] ####[facility] ([facility])[address] [place] [address] Erythrocyte distribution width (RBC) [Ratio] 12.8 % Normal 11.5-15.0 [facility] Comment on above: Performed By: #### L [id number] ####[facility] ([facility])[address] [place] [address] ERYTHROCYTE MEAN CORPUSCULAR HEMOGLOBIN CONCENTRATION (G/DL) BY AUTOMATED 31.9 g/dL Low 32.0-35.0 [facility] Comment on above: Performed By: #### L [id number] ####[facility] ([facility])[address] [place] [address] Hematocrit (Bld) [Volume fraction] 37.9 % Low 39.0-55.0 [facility] Comment on above: Performed By: #### L [id number] ####[facility] ([facility])[address] [place] [address] Hemoglobin (Bld) [Mass/Vol] 12.1 g/dL Low 13.0-17.0 [facility] Comment on above: Performed By: #### L [id number] ####[facility] ([facility])[address] [place] [address] Immature granulocytes (Bld) [#/Vol] 0.05 10*3/uL Normal 0.00-0.20 [facility] Comment on above: Performed By: #### L [id number] ####[facility] ([facility])[address] [place] [address] Immature granulocytes/100 WBC (Bld) 0.7 % Normal 0.0-1.0 [facility] Comment on above: Performed By: #### L [id number] ####[facility] ([facility])[address] [place] [address] Lymphocytes (Bld) [#/Vol] 0.43 10*3/uL Low 1.20-4.0 0 [facility] Comment on above: Performed By: #### L [id number] ####[facility] ([facility])[address] [place] [address] Lymphocytes/100 WBC (Bld) 6.0 % Low 20.0-45.0 [facility] Comment on above: Performed By: #### L [id number] ####[facility] ([facility])[address] [place] [address] MCH (RBC) [Entitic mass] 32.1 pg Normal 27.0-33.0 [facility] Comment on above: Performed By: #### L [id number] ####[facility] ([facility])[address] [place] [address] MCV (RBC) [Entitic vol] 100.5 fL High 82.0-98.0 [facility] Comment on above: Performed By: #### L [id number] ####[facility] ([facility])[address] [place] [address] Monocytes (Bld) [#/Vol] 0.26 10*3/uL Normal 0.10-1.00 [facility] Comment on above: Performed By: #### L [id number] ####[facility] ([facility])[address] [place] [address] Monocytes/100 WBC (Bld) 3.6 % Low 5.0-12.0 [facility] on above: Performed By: #### L [id number] ####[facility] ([facility])[address] [place] [address] Neutrophils (Bld) [#/Vol] 6.39 10*3/uL Normal 1.60-7.6 0 [facility] Comment on above: Performed By: #### L [id number] ####[facility] ([facility])[address] [address] Neutrophils/100 WBC (Bld) 89.6 % High 40.0-72.0 [facility] Comment on above: Performed By: #### L [id number] ####[facility] ([facility])[address] [place] [address] NRBC (PER 100 WBCS) BY AUTOMATED COUNT 0.0 % Normal 0 [facility] Comment on above: Performed By: #### L [id number] ####[facility] ([facility])[address] [address] PLATELETS (10*3/UL) IN BLOOD AUTOMATED COUNT 161 10*3/uL Normal 150-400 [facility] Comment on above: Performed By: #### L [id number] ####[facility] ([facility])[address] [place] [address] RBC (Bld) [#/Vol] 3.77 10*6/uL Low 4.20-5.70 [facility] Comment on above: Performed By: #### L [id number] ####[facility] ([facility])[address] [place], [place] [address] WBC (Bld) [#/Vol] 7.14 10*3/uL Normal 4.00-10.60 [facility] Comment on above: Performed By: #### L [id number] ####[facility] ([facility])[address] [place] [address] CONSULTon 03-01-2024 CONSULT Normal [facility] MAGNESIUMon 03-01-2024 Magnesium [Mass/Vol] 2.1 mg/dL Normal 1.9-2.7 [facility] Comment on above: Performed By: #### L [id number] ####[facility] ([facility])[address] [place] [address] PHOSPHORUSon 03-01-2024 Magnesium [Mass/Vol] 2.3 mg/dL Low 2.5-5.0 [facility] Comment on above: Performed By: #### L [id number] ####[facility] ([facility])[address] [place] [address] PLATELET COUNTon 03-01-2024 PLATELETS (10*3/UL) IN BLOOD AUTOMATED COUNT 157 10*3/uL Normal 150-400 [facility] Comment on above: Performed By: #### L [id number] ####[facility] ([facility])[address] [place] [address] URINALYSIS WITH MICROSCOPICo n 03-01-2024 BILIRUBIN, TOTAL PRESENCE IN URINE Negative Normal Negative [facility] Comment on above: Performed By: #### L [id number] ####[facility] ([facility])[address] [place] [address] Clarity (U) Turbid Abnormal Clear [facility] Comment on above: Performed By: #### L [id number] ####[facility] ([facility])[address] [place] [address] Color (U) Yellow Normal Colorless, Yellow, Light-[place] ow [facility] Comment on above: Performed By: #### L [id number] ####[facility] [place] [address] GLUCOSE (MG/DL) IN URINE Normal Normal Normal [facility] Comment on above: Performed By: #### L [id number] ####[facility] ([facility])[address] [place] [address] HEMOGLOBIN PRESENCE IN URINE Moderate Abnormal Negative [facility] Comment on above: Performed By: #### L [id number] ####[facility] ([facility])[address] [place] [address] Ketones Ql (U) Negative Normal Negative [facility] Comment on above: Performed By: #### L [id number] ####[facility] ([facility])[address] [place] [address] LEUKOCYTE ESTERASE PRESENCE IN URINE BY TEST STRIP Large Abnormal Negative [facility] Comment on above: Performed By: #### L [id number] ####[facility] ([facility])[address] [place] [address] MUCUS (#/LPF) IN URINE SEDIMENT Few Normal None Seen, Occasional , Few [facility] Comment on above: Performed By: #### L [id number] ####[facility] ([facility])[address] [place] [address] NITRITE PRESENCE IN URINE Negative Normal Negative [facility] Comment on above: Performed By: #### L [id number] ####[facility] ([facility])[address] [place] [address] pH (U) 5.5 [pH] Normal 5.0-8.0 [facility] Comment on above: Performed By: #### L [id number] ####[facility] ([facility])[address] [place] [address] Protein (U) [Mass/Vol] Negative Normal Negative [facility] Comment on above: Performed By: #### L [id number] ####[facility] ([facility])[address] [place] [address] RBC (#/HPF) IN URINE SEDIMENT >20 Abnormal None Seen, 0-2 [facility] Comment on above: Performed By: #### L [id number] ####[facility] ([facility])[address] [place] [address] Specific gravity (U) [Rel density] 1.012 Normal 1.010-1.03 0 [facility] Comment on above: Performed By: #### L [id number] ####[facility] ([facility])[address] [place] [address] SQUAMOUS EPITHELIAL CELLS (#/LPF) IN URINE SEDIMENT Many Abnormal None Seen, Occasional , Few [facility] Comment on above: Performed By: #### L [id number] ####[facility] ([facility])[address] [place] [address] UROBILINOGEN (MG/DL) IN URINE Normal Normal Normal [facility] Comment on above: Performed By: #### L [id number] ####[facility] ([facility])[address] [place] [address] WBC (LEUKOCYTE) (#/HPF) IN URINE SEDIMENT >50 Abnormal None Seen, 0-2 [facility] Comment on above: Performed By: #### L [id number] ####[facility] ([facility])[address] [place] [address] WBC (LEUKOCYTE) CLUMPS (#/HPF) IN URINE SEDIMENT Present Abnormal None Seen [facility] Comment on above: Performed By: #### L [id number] ####[facility] ([facility])[address] [place] [address] URINE CULTURE, ROUTINEon Ampicillin [Susc] 2 ug/ml Susceptible [facility] Comment on above: Performed By: #### L [id number] ####[facility] ([facility])[address] [place] [address] Nitrofurantoin [Susc] <=16 Susceptible [facility] Comment on above: Performed By: #### L [id number] ####[facility] ([facility])[address] [place] [address] Vancomycin [Susc] 1 ug/ml Susceptible [facility] Comment on above: Performed By: #### L [id number] ####[facility] ([facility])[address] [place] [address] B-TYPE NATRIURETIC PEPTIDEon 02-29-2024 Natriuretic peptide B (Bld) [Mass/Vol] 524 pg/mL High 0-100 [facility] Comment on above: Performed By: #### L [id number] ####[facility] ([facility])[address] [place] [address] BASIC METABOLIC PANELon 10- Anion gap [Moles/Vol] 10 mmol/L Normal 7-20 [facility] Comment on above: Performed By: #### L [id number] ####[facility] [place] [address] Calcium [Mass/Vol] 8.6 mg/dL Normal 8.6-10.3 [facility] Comment on above: Performed By: #### L [id number] ####[facility] [place] [address] Chloride [Moles/Vol] 104 mmol/L Normal 98-107 [facility] Comment on above: Performed By: #### L [id number] ####[facility] ([facility])[address] [place] [address] CO2 [Moles/Vol] 30 mmol/L Normal 21-31 [facility] Comment on above: Performed By: #### L [id number] ####[facility] ([facility])[address] [place] [address] Creatinine [Mass/Vol] 0.99 mg/dL Normal 0.70-1.30 [facility] Comment on above: Performed By: #### L [id number] ####[facility] ([facility])[address] [place] [address] GLOMERULAR FILTRATION RATE ML/MIN/1.73 SQ M.PREDICTED 78.0 mL/min/1.73m*2 Normal >60.0 U [facility] Comment on above: Result Comment: [facility]???s estimated glomerular filtration rate [...] of individuals. Performed By: #### L [id number] ####[facility] ([facility])[address] [place] [address] Glucose [Mass/Vol] 134 mg/dL High 70-100 [facility] Comment on above: Performed By: #### L [id number] ####[facility] ([facility])[address] [place] [address] Potassium [Moles/Vol] 3.4 mmol/L Low 3.5-5.1 [facility] Comment on above: Performed By: #### L [id number] ####[facility] ([facility])[address] [place] [address] Sodium [Moles/Vol] 141 mmol/L Normal 136-145 [facility] Comment on above: Performed By: #### L [id number] ####[facility] ([facility])[address] [place] [address] Urea nitrogen [Mass/Vol] 24 mg/dL Normal 7-25 [facility] Comment on above: Performed By: #### L [id number] ####[facility] ([facility])[address] [place] [address] UREA NITROGEN/CREATININE (MASS RATIO) IN SER/PLAS 24.2 Normal [facility] Comment on above: Performed By: #### L [id number] ####[facility] ([facility])[address] [place] [address] Anion gap [Moles/Vol] 10 mmol/L Normal 7-20 [facility] Comment on above: Performed By: #### L [id number] ####[facility] ([facility])[address] [place] [address] Calcium [Mass/Vol] 8.4 mg/dL Low 8.6-10.3 [facility] Comment on above: Performed By: #### L [id number] ####[facility] ([facility])[address] [place] [address] Chloride [Moles/Vol] 105 mmol/L Normal 98-107 [facility] Comment on above: Performed By: #### L [id number] ####[facility] ([facility])[address] [place] [address] CO2 [Moles/Vol] 28 mmol/L Normal 21-31 [facility] Comment on above: Performed By: #### L [id number] ####[facility] ([facility])[address] [place] [address] Creatinine [Mass/Vol] 1.06 mg/dL Normal 0.70-1.30 [facility] Comment on above: Performed By: #### L [id number] ####[facility] ([facility])[address] [place] [address] GLOMERULAR FILTRATION RATE ML/MIN/1.73 SQ M.PREDICTED 71.8 mL/min/1.73m*2 Normal >60.0 U [facility] Comment on above: Result Comment: [facility]???s estimated glomerular filtration rate [...] of individuals. Performed By: #### L [id number] ####[facility] ([facility])[address] [place] [address] Glucose [Mass/Vol] 141 mg/dL High 70-100 [facility] Comment on above: Performed By: #### L [id number] ####[facility] ([facility])[address] [place] [address] Potassium [Moles/Vol] 3.5 mmol/L Normal 3.5-5.1 [facility] Comment on above: Performed By: #### L [id number] ####[facility] ([facility])[address] [place] [address] Sodium [Moles/Vol] 139 mmol/L Normal 136-145 [facility] Comment on above: Performed By: #### L [id number] ####[facility] ([facility])[address] [address] Urea nitrogen [Mass/Vol] 23 mg/dL Normal 7-25 [facility] Comment on above: Performed By: #### L [id number] ####[facility] [place] [address] UREA NITROGEN/CREATININE (MASS RATIO) IN SER/PLAS 21.7 Normal [facility] Comment on above: Performed By: #### L [id number] ####[facility] [place] [address] CBC WITH AUTO DIFFERENTIALon 02-29-2024 Basophils (Bld) [#/Vol] 0.01 10*3/uL Normal 0.00-0.20 [facility] Comment on above: Performed By: #### L [id number] ####[facility] [place] [address] Basophils/100 WBC (Bld) 0.2 % Normal 0.0-1.0 [facility] Comment on above: Performed By: #### L [id number] ####[facility] (BEAKER)[address] [place] [address] Eosinophils (Bld) [#/Vol] 0.00 10*3/uL Normal 0.00-0.5 0 [facility] Comment on above: Performed By: #### L [id number] ####[facility] (BEAKER)[address] [place] [address] Eosinophils/100 WBC (Bld) 0.0 % Normal 0.0-6.0 [facility] Comment on above: Performed By: #### L [id number] ####[facility] (BEAKER)[address] [place] [address] Erythrocyte distribution width (RBC) [Ratio] 12.8 % Normal 11.5-15.0 [facility] Comment on above: Performed By: #### L [id number] ####[facility] (BEAKER)[address] [place] [address] ERYTHROCYTE MEAN CORPUSCULAR HEMOGLOBIN CONCENTRATION (G/DL) BY AUTOMATED 32.0 g/dL Normal 32.0-35.0 [facility] Comment on above: Performed By: #### L [id number] ####[facility] (BEAKER)[address] [place], [place] [address] Hematocrit (Bld) [Volume fraction] 38.7 % Low 39.0-55.0 [facility] Comment on above: Performed By: #### L [id number] ####[facility] (BEAKER)[address] [place] [address] Hemoglobin (Bld) [Mass/Vol] 12.4 g/dL Low 13.0-17.0 [facility] Comment on above: Performed By: #### L [id number] ####[facility] (BEAKER)[address] [place], [place] [address] Immature granulocytes (Bld) [#/Vol] 0.04 10*3/uL Normal 0.00-0.20 [facility] Comment on above: Performed By: #### L [id number] ####[facility] (BEAKER)[address] [place] [address] Immature granulocytes/100 WBC (Bld) 0.7 % Normal 0.0-1.0 [facility] Comment on above: Performed By: #### L [id number] ####[facility] (BEAKER)[address] [place], [place] [address] IMMATURE PLATELET FRACTION % 4.9 % Normal 0.8-6.3 [facility] Comment on above: Performed By: #### L [id number] ####[facility] (BEAKER)[address] [place] [address] Lymphocytes (Bld) [#/Vol] 0.38 10*3/uL Low 1.20-4.0 0 [facility] Comment on above: Performed By: #### L [id number] ####[facility] [place] [address] Lymphocytes/100 WBC (Bld) 6.2 % Low 20.0-45.0 [facility] Comment on above: Performed By: #### L [id number] ####[facility] ([facility])[address] [place] [address] MCH (RBC) [Entitic mass] 32.0 pg Normal 27.0-33.0 [facility] Comment on above: Performed By: #### L [id number] ####[facility] [place] [address] MCV (RBC) [Entitic vol] 100.0 fL High 82.0-98.0 [facility] Comment on above: Performed By: #### L [id number] ####[facility] ([facility] [place] [address] Monocytes (Bld) [#/Vol] 0.35 10*3/uL Normal 0.10-1.00 [facility] Comment on above: Performed By: #### L [id number] ####[facility] ([facility] [place] [address] Monocytes/100 WBC (Bld) 5.7 % Normal 5.0-12.0 [facility] Comment on above: Performed By: #### L [id number] ####[facility] (BEAKER)[address] [place] [address] Neutrophils (Bld) [#/Vol] 5.36 10*3/uL Normal 1.60-7.6 0 [facility] Comment on above: Performed By: #### L [id number] ####[facility] (BEAKER)[address] [place] [address] Neutrophils/100 WBC (Bld) 87.2 % High 40.0-72.0 [facility] Comment on above: Performed By: #### L [id number] ####[facility] ([facility])[address] [place] [address] NRBC (PER 100 WBCS) BY AUTOMATED COUNT 0.0 % Normal 0 [facility] Comment on above: Performed By: #### L [id number] ####[facility] ([facility])[address] [place] [address] PLATELETS (10*3/UL) IN BLOOD AUTOMATED COUNT 122 10*3/uL Low 150-400 [facility] Comment on above: Performed By: #### L [id number] ####[facility] ([facility])[address] [place] [address] RBC (Bld) [#/Vol] 3.87 10*6/uL Low 4.20-5.70 [facility] Comment on above: Performed By: #### L [id number] ####[facility] ([facility])[address] [place] [address] WBC (Bld) [#/Vol] 6.14 10*3/uL Normal 4.00-10.60 [facility] Comment on above: Performed By: #### L [id number] ####[facility] ([facility])[address] [place] [address] CONSULTon 02-29-2024 CONSULT Normal [facility] LEGIONELLA ANTIGEN, URINEon 02-29-2024 LEGIONELLA AG, UR Negative Normal NEG [facility] Comment on above: Result Comment: L. p neumophila serogroup 1 antigen not detected.A negative result does not exclude infection with Leginella pnemophila serogroup 1 nor does it rule out other microbial-caused respiratory infections of disease caused by other serogroups of Legionella pneumophila.Test Performed by [employer] [address] [place] [id number] - Released 03/01/2024 15:07 Performed By: #### L [id number] ####[employer] [id number] [place] [address] MAGNESIUMon 02-29-2024 Magnesium [Mass/Vol] 2.0 mg/dL Normal 1.9-2.7 [facility] Comment on above: Performed By: #### L [id number] ####[facility] ([facility])[address] [place] [address] Magnesium [Mass/Vol] 1.9 mg/dL Normal 1.9-2.7 [facility] Comment on above: Performed By: #### L [id number] ####[facility] ([facility])[address] [place] [address] PHOSPHORUSon 02-29-2024 Magnesium [Mass/Vol] 2.4 mg/dL Low 2.5-5.0 [facility] Comment on above: Performed By: #### L [id number] ####[facility] ([facility])[address] [place] [address] RESPIRATORY VIRUS PCR PANELo n 02-29-2024 ADENOVIRUS DETECTION BY PCR Not detected Normal Not Detected [facility] Comment on above: Order Comment: Testi ng methodology is a multiplexed nucleic acid test intended for the simultaneous qualitative detection and differentiation of nucleic acids from multiple viral and bacterial respiratory organisms in nasopharyngeal swabs (NUCLEAR TECHNOLOGIST). Performed By: #### L [id number] ####[facility] ([facility])[address] [place] [address] B. PARAPERTUSSIS DNA Not detected Normal Not Detected [facility] Comment on above: Order Comment: Testi ng methodology is a multiplexed nucleic acid test intended for the simultaneous qualitative detection and differentiation of nucleic acids from multiple viral and bacterial respiratory organisms in nasopharyngeal swabs (NUCLEAR TECHNOLOGIST). Performed By: #### L [id number] ####[facility] ([facility])[address] [place] [address] BORDETELLA PERTUSSIS DNA PRESENCE IN UNSPECIFIED SPECIMEN BY OR* Not detected Normal Not Detected [facility] Comment on above: Order Comment: Testi ng methodology is a multiplexed nucleic acid test intended for the simultaneous qualitative detection and differentiation of nucleic acids from multiple viral and bacterial respiratory organisms in nasopharyngeal swabs (NUCLEAR TECHNOLOGIST). Performed By: #### L [id number] ####[facility] ([facility])[address] [place] [address] CHLAMYDOPHILA PNEUMONIAE Not detected Normal Not Detected [facility] Comment on above: Order Comment: Testi ng methodology is a multiplexed nucleic acid test intended for the simultaneous qualitative detection and differentiation of nucleic acids from multiple viral and bacterial respiratory organisms in nasopharyngeal swabs (NUCLEAR TECHNOLOGIST). Performed By: #### L [id number] ####[facility] ([facility])[address] [place] [address] CORONAVIRUS 229E Not detected Normal Not Detected [facility] Comment on above: Order Comment: Testi ng methodology is a multiplexed nucleic acid test intended for the simultaneous qualitative detection and differentiation of nucleic acids from multiple viral and bacterial respiratory organisms in nasopharyngeal swabs (NUCLEAR TECHNOLOGIST). Performed By: #### L [id number] ####[facility] ([facility])[address] [place] [address] CORONAVIRUS HKU1 Not detected Normal Not Detected [facility] Comment on above: Order Comment: Testi ng methodology is a multiplexed nucleic acid test intended for the simultaneous qualitative detection and differentiation of nucleic acids from multiple viral and bacterial respiratory organisms in nasopharyngeal swabs (NUCLEAR TECHNOLOGIST). Performed By: #### L [id number] ####[facility] ([facility])[address] [place] [address] CORONAVIRUS [id number] Not detected Normal Not Detected [facility] Comment on above: Order Comment: Testi ng methodology is a multiplexed nucleic acid test intended for the simultaneous qualitative detection and differentiation of nucleic acids from multiple viral and bacterial respiratory organisms in nasopharyngeal swabs (NUCLEAR TECHNOLOGIST). Performed By: #### L [id number] ####[facility] ([facility])[address] [place] [address] CORONAVIRUS OC43 Not detected Normal Not Detected [facility] Comment on above: Order Comment: Testi ng methodology is a multiplexed nucleic acid test intended for the simultaneous qualitative detection and differentiation of nucleic acids from multiple viral and bacterial respiratory organisms in nasopharyngeal swabs (NUCLEAR TECHNOLOGIST). Performed By: #### L [id number] ####[facility] ([facility])[address] [place] [address] HUMAN METAPNEUMOVIRUS Not detected Normal Not Detected [facility] Comment on above: Order Comment: Testi ng methodology is a multiplexed nucleic acid test intended for the simultaneous qualitative detection and differentiation of nucleic acids from multiple viral and bacterial respiratory organisms in nasopharyngeal swabs (NUCLEAR TECHNOLOGIST). Performed By: #### L [id number] ####[facility] ([facility])[address] [place] [address] HUMAN RHINOVIRUS+ENTEROVIRUS Not detected Normal Not Detected [facility] Comment on above: Order Comment: Testi ng methodology is a multiplexed nucleic acid test intended for the simultaneous qualitative detection and differentiation of nucleic acids from multiple viral and bacterial respiratory organisms in nasopharyngeal swabs (NUCLEAR TECHNOLOGIST). Performed By: #### L [id number] ####[facility] ([facility])[address] [place] [address] INFLUENZA A Not detected Normal Not Detected [facility] Comment on above: Order Comment: Testi ng methodology is a multiplexed nucleic acid test intended for the simultaneous qualitative detection and differentiation of nucleic acids from multiple viral and bacterial respiratory organisms in nasopharyngeal swabs (NUCLEAR TECHNOLOGIST). Performed By: #### L [id number] ####[facility] ([facility])[address] [place] [address] INFLUENZA B Not detected Normal Not Detected [facility] Comment on above: Order Comment: Testi ng methodology is a multiplexed nucleic acid test intended for the simultaneous qualitative detection and differentiation of nucleic acids from multiple viral and bacterial respiratory organisms in nasopharyngeal swabs (NUCLEAR TECHNOLOGIST). Performed By: #### L [id number] ####[facility] ([facility])[address] [place] [address] MYCOPLASMA PNEUMONIAE Not detected Normal Not Detected [facility] Comment on above: Order Comment: Testi ng methodology is a multiplexed nucleic acid test intended for the simultaneous qualitative detection and differentiation of nucleic acids from multiple viral and bacterial respiratory organisms in nasopharyngeal swabs (NUCLEAR TECHNOLOGIST). Performed By: #### L [id number] ####[facility] ([facility])[address] [place] [address] PARAINFLUENZA 1 Not detected Normal Not Detected [facility] Comment on above: Order Comment: Testi ng methodology is a multiplexed nucleic acid test intended for the simultaneous qualitative detection and differentiation of nucleic acids from multiple viral and bacterial respiratory organisms in nasopharyngeal swabs (NUCLEAR TECHNOLOGIST). Performed By: #### L [id number] ####[facility] ([facility])[address] [place] [address] PARAINFLUENZA 2 Not detected Normal Not Detected [facility] Comment on above: Order Comment: Testi ng methodology is a multiplexed nucleic acid test intended for the simultaneous qualitative detection and differentiation of nucleic acids from multiple viral and bacterial respiratory organisms in nasopharyngeal swabs (NUCLEAR TECHNOLOGIST). Performed By: #### L [id number] ####[facility] ([facility])[address] [place] [address] PARAINFLUENZA 3 Not detected Normal Not Detected [facility] Comment on above: Order Comment: Testi ng methodology is a multiplexed nucleic acid test intended for the simultaneous qualitative detection and differentiation of nucleic acids from multiple viral and bacterial respiratory organisms in nasopharyngeal swabs (NUCLEAR TECHNOLOGIST). Performed By: #### L [id number] ####[facility] ([facility])[address] [place] [address] PARAINFLUENZA 4 Not detected Normal Not Detected [facility] Comment on above: Order Comment: Testi ng methodology is a multiplexed nucleic acid test intended for the simultaneous qualitative detection and differentiation of nucleic acids from multiple viral and bacterial respiratory organisms in nasopharyngeal swabs (NUCLEAR TECHNOLOGIST). Performed By: #### L [id number] ####[facility] ([facility])[address] [place] [address] RESP SYNCYTIAL VIRUS Not detected Normal Not Detected [facility] Comment on above: Order Comment: Testi ng methodology is a multiplexed nucleic acid test intended for the simultaneous qualitative detection and differentiation of nucleic acids from multiple viral and bacterial respiratory organisms in nasopharyngeal swabs (NUCLEAR TECHNOLOGIST). Performed By: #### L [id number] ####[facility] ([facility])[address] [place] [address] SARS-CoV-2 (COVID-19) RNA TAI+probe Ql (Unsp spec) Not detected Normal Not Detected [facility] Comment on above: Order Comment: Testi ng methodology is a multiplexed nucleic acid test intended for the simultaneous qualitative detection and differentiation of nucleic acids from multiple viral and bacterial respiratory organisms in nasopharyngeal swabs (NUCLEAR TECHNOLOGIST). Performed By: #### L [id number] ####[facility] ([facility] [place] [address] ANTI-XA (HEPARIN LEVEL)on HEPARIN UNFRACTIONATED (U/ML) IN PPP BY CHROMOGENIC METHOD <0.10 Invalid Interpretation Code 0.3-0.7 [facility] Comment on above: Order Comment: Check anti-Xa level every 6 hours while on heparin infusion, or per protocol. Result Comment: Ricarda roxaban and Apixaban will interfere with the anti Xa assay used to monitor UFH and LMWH. Performed By: #### L [id number] ####[facility] ([facility])[address] [place] [address] BASIC METABOLIC PANELon 02-12 Anion gap [Moles/Vol] 10 mmol/L Normal 7-20 [facility] Comment on above: Performed By: #### L [id number] ####[facility] ([facility])[address] [place] [address] Calcium [Mass/Vol] 8.0 mg/dL Low 8.6-10.3 [facility] Comment on above: Performed By: #### L [id number] ####[facility] ([facility])[address] [place] [address] Chloride [Moles/Vol] 102 mmol/L Normal 98-107 [facility] Comment on above: Performed By: #### L [id number] ####[facility] ([facility] [place] [address] CO2 [Moles/Vol] 30 mmol/L Normal 21-31 [facility] Comment on above: Performed By: #### L [id number] ####[facility] [place] [address] Creatinine [Mass/Vol] 1.22 mg/dL Normal 0.70-1.30 [facility] Comment on above: Performed By: #### L [id number] ####[facility] [place] [address] GLOMERULAR FILTRATION RATE ML/MIN/1.73 SQ M.PREDICTED 60.7 mL/min/1.73m*2 Normal >60.0 [facility] Comment on above: Result Comment: [facility]???s estimated glomerular filtration rate [...] of individuals. Performed By: #### L [id number] ####[facility] ([facility])[address] [place] [address] Glucose [Mass/Vol] 94 mg/dL Normal 70-100 [facility] Comment on above: Performed By: #### L [id number] ####[facility] ([facility])[address] [place] [address] Potassium [Moles/Vol] 3.0 mmol/L Low 3.5-5.1 [facility] Comment on above: Performed By: #### L [id number] ####[facility] ([facility])[address] [place] [address] Sodium [Moles/Vol] 139 mmol/L Normal 136-145 [facility] Comment on above: Performed By: #### L [id number] ####[facility] ([facility])[address] [place] [address] Urea nitrogen [Mass/Vol] 16 mg/dL Normal 7-25 [facility] Comment on above: Performed By: #### L [id number] ####[facility] ([facility])[address] [place] [address] UREA NITROGEN/CREATININE (MASS RATIO) IN SER/PLAS 13.1 Normal [facility] Comment on above: Performed By: #### L [id number] ####[facility] (BEAKER)[address] [place] [address] CBC WITH AUTO DIFFERENTIALon 02-28-2024 Basophils (Bld) [#/Vol] 0.03 10*3/uL Normal 0.00-0.20 [facility] Comment on above: Performed By: #### L [id number] ####[facility] (BEAKER)[address] [place] [address] Basophils/100 WBC (Bld) 0.3 % Normal 0.0-1.0 [facility] Comment on above: Performed By: #### L [id number] ####[facility] (BEAKER)[address] [place] [address] Eosinophils (Bld) [#/Vol] 0.00 10*3/uL Normal 0.00-0.5 0 [facility] Comment on above: Performed By: #### L [id number] ####[facility] (BEAKER)[address] [place] [address] Eosinophils/100 WBC (Bld) 0.0 % Normal 0.0-6.0 [facility] Comment on above: Performed By: #### L [id number] ####[facility] [place] [address] Erythrocyte distribution width (RBC) [Ratio] 13.0 % Normal 11.5-15.0 [facility] Comment on above: Performed By: #### L [id number] ####[facility] (BEAKER)[address] [place] [address] ERYTHROCYTE MEAN CORPUSCULAR HEMOGLOBIN CONCENTRATION (G/DL) BY AUTOMATED 32.3 g/dL Normal 32.0-35.0 [facility] Comment on above: Performed By: #### L [id number] ####[facility] (BEAKER)[address] [place] [address] Hematocrit (Bld) [Volume fraction] 37.5 % Low 39.0-55.0 [facility] Comment on above: Performed By: #### L [id number] ####[facility] (BEAKER)[address] [place] [address] Hemoglobin (Bld) [Mass/Vol] 12.1 g/dL Low 13.0-17.0 [facility] Comment on above: Performed By: #### L [id number] ####[facility] (BEAKER)[address] [place] [address] Immature granulocytes (Bld) [#/Vol] 0.06 10*3/uL Normal 0.00-0.20 [facility] Comment on above: Performed By: #### L [id number] ####[facility] (BEAKER)[address] [place] [address] Immature granulocytes/100 WBC (Bld) 0.6 % Normal 0.0-1.0 [facility] Comment on above: Performed By: #### L [id number] ####[facility] (BEAKER)[address] [place] [address] Lymphocytes (Bld) [#/Vol] 0.56 10*3/uL Low 1.20-4.0 0 [facility] Comment on above: Performed By: #### L [id number] ####[facility] (BEAKER)[address] [place] [address] Lymphocytes/100 WBC (Bld) 6.1 % Low 20.0-45.0 [facility] Comment on above: Performed By: #### L [id number] ####[facility] (BEAKER)[address] [place] [address] MCH (RBC) [Entitic mass] 32.3 pg Normal 27.0-33.0 [facility] Comment on above: Performed By: #### L [id number] ####[facility] (BEAKER)[address] [place] [address] MCV (RBC) [Entitic vol] 100.0 fL High 82.0-98.0 [facility] Comment on above: Performed By: #### L [id number] ####[facility] (BEAKER)[address] [place] [address] Monocytes (Bld) [#/Vol] 1.19 10*3/uL High 0.10-1.00 [facility] Comment on above: Performed By: #### L [id number] ####[facility] (BEAKER)[address] [place] [address] Monocytes/100 WBC (Bld) 12.9 % High 5.0-12.0 U [facility] Comment on above: Performed By: #### L [id number] ####[facility] (BEAKER)[address] [address] Neutrophils (Bld) [#/Vol] 7.41 10*3/uL Normal 1.60-7.6 0 [facility] Comment on above: Performed By: #### L [id number] ####[facility] (BEAKER)[address] [address] Neutrophils/100 WBC (Bld) 80.1 % High 40.0-72.0 [facility] Comment on above: Performed By: #### L [id number] ####[facility] (BEAKER)[address] [address] NRBC (PER 100 WBCS) BY AUTOMATED COUNT 0.0 % Normal 0 [facility] Comment on above: Performed By: #### L [id number] ####[facility] (BEAKER)[address] [place] [address] PLATELETS (10*3/UL) IN BLOOD AUTOMATED COUNT 146 10*3/uL Low 150-400 [facility] Comment on above: Performed By: #### L [id number] ####[facility] (BEAKER)[address] [place], [place] [address] RBC (Bld) [#/Vol] 3.75 10*6/uL Low 4.20-5.70 [facility] Comment on above: Performed By: #### L [id number] ####[facility] (BEAKER)[address] [place], [place] [address] WBC (Bld) [#/Vol] 9.25 10*3/uL Normal 4.00-10.60 [facility] Comment on above: Performed By: #### L [id number] ####[facility] ([facility])[address] [place] [address] MAGNESIUMon 02-28-2024 Magnesium [Mass/Vol] 1.5 mg/dL Low 1.9-2.7 [facility] Comment on above: Performed By: #### L [id number] ####[facility] (BEAKER)[address] [place] [address] PHOSPHORUSon 02-28-2024 Magnesium [Mass/Vol] 2.7 mg/dL Normal 2.5-5.0 [facility] Comment on above: Performed By: #### L [id number] ####[facility] ([facility])[address] [place] [address] PROCALCITONIN TESTon 024 PROCALCITONIN IN BLOOD 3.55 ng/mL Critically high 0.00-0.1 0 [facility] Comment on above: Result [...] and initial PCT<0.5ng/mL Performed By: #### L [id number] ####[facility] ([facility] [place] [address] URINALYSIS WITH MICROSCOPICo n 02-28-2024 BILIRUBIN, TOTAL PRESENCE IN URINE Negative Normal Negative [facility] Comment on above: Performed By: #### L [id number] ####[facility] ([facility])[address] [place] [address] Clarity (U) Cloudy Abnormal Clear [facility] Comment on above: Performed By: #### L [id number] ####[facility] ([facility])[address] [place] [address] Color (U) Yellow Normal Colorless, Yellow, Light-[place] ow [facility] Comment on above: Performed By: #### L [id number] ####[facility] ([facility])[address] [place] [address] GLUCOSE (MG/DL) IN URINE Normal Normal Normal [facility] Comment on above: Performed By: #### L [id number] ####[facility] ([facility])[address] [place] [address] HEMOGLOBIN PRESENCE IN URINE Moderate Abnormal Negative [facility] Comment on above: Performed By: #### L [id number] ####[facility] ([facility])[address] [place] [address] Ketones Ql (U) Negative Normal Negative [facility] Comment on above: Performed By: #### L [id number] ####[facility] ([facility])[address] [place] [address] LEUKOCYTE ESTERASE PRESENCE IN URINE BY TEST STRIP Large Abnormal Negative [facility] Comment on above: Performed By: #### L [id number] ####[facility] ([facility])[address] [place] [address] MUCUS (#/LPF) IN URINE SEDIMENT Occasional Normal None Seen, Occasional , Few [facility] Comment on above: Performed By: #### L [id number] ####[facility] (BEAKER)[address] [place] [address] NITRITE PRESENCE IN URINE Negative Normal Negative [facility] Comment on above: Performed By: #### L [id number] ####[facility] (BEAKER)[address] [place] [address] pH (U) 6.0 [pH] Normal 5.0-8.0 [facility] Comment on above: Performed By: #### L [id number] ####[facility] (BEAKER)[address] [place] [address] Protein (U) [Mass/Vol] 30 mg/dL Abnormal Negative [facility] on above: Performed By: #### L [id number] ####[facility] (BEAKER)[address] [place] [address] RBC (#/HPF) IN URINE SEDIMENT 11-20 Abnormal None Seen, 0-2 [facility] Comment on above: Performed By: #### L [id number] ####[facility] (BEAKER)[address] [place] [address] Specific gravity (U) [Rel density] 1.018 Normal 1.010-1.03 0 [facility] Comment on above: Performed By: #### L [id number] ####[facility] (BEAKER)[address] [place] [address] SQUAMOUS EPITHELIAL CELLS (#/LPF) IN URINE SEDIMENT Few Normal None Seen, Occasional , Few [facility] Comment on above: Performed By: #### L [id number] ####[facility] (BEAKER)[address] [place] [address] UROBILINOGEN (MG/DL) IN URINE Normal Normal Normal [facility] Comment on above: Performed By: #### L [id number] ####[facility] (BEAKER)[address] [place] [address] WBC (LEUKOCYTE) (#/HPF) IN URINE SEDIMENT >50 Abnormal None Seen, 0-2 [facility] Comment on above: Performed By: #### L [id number] ####[facility] (BEAKER)[address] [place] [address] WBC (LEUKOCYTE) CLUMPS (#/HPF) IN URINE SEDIMENT Present Abnormal None Seen [facility] Comment on above: Performed By: #### L [id number] ####[facility] (BEAKER)[address] [place] [address] YEAST, BUDDING (#/HPF) IN URINE Occasional Abnormal None Seen [facility] Comment on above: Performed By: #### L [id number] ####[facility] (BEAKER)[address] [place] [address] VENOUS BLOOD GAS WITH IONIZE D CALCIUMon 02-28-2024 Base excess Calc (BldV) [Moles/Vol] 3.8 mmol/L Normal [facility] Comment on above: Order Comment: Bipap 16/8 RR 14 FiO2 75% Performed By: #### L [id number] ####[facility]PIRAT[facility] [id number] [place] [address] [place] CALCIUM IONIZED (MMOL/L) IN BLOOD 1.06 mmol/L Low 1.15-1.33 [facility] Comment on above: Order Comment: Bipap 16/8 RR 14 FiO2 75% Performed By: #### L [id number] ####[facility]PIR[facility] [id number] [place] [address] [place] CO2 (BldV) [Partial pressure] 46 mm[Hg] Normal 40-50 [facility] Comment on above: Order Comment: Bipap 16/8 RR 14 FiO2 75% Performed By: #### L [id number] ####[facility] [id number] [place] [address] [place] HCO3 (Bld) [Moles/Vol] 29.2 mmol/L Normal U [facility] Comment on above: Order Comment: Bipap 16/8 RR 14 FiO2 75% Performed By: #### L [id number] ####[facility]PIR[facility] [id number] [place] [address] [place] Oxygen (BldV) [Partial pressure] 47 mm[Hg] High 35-45 [facility] Comment on above: Order Comment: Bipap 16/8 RR 14 FiO2 75% Performed By: #### L [id number] ####[facility]PIR[facility] [id number] [place] [address] [place] OXYGEN SATURATION (%) IN VENOUS BLOOD 78.8 % High 65.0-75.0 [facility] Comment on above: Order Comment: Bipap 16/8 RR 14 FiO2 75% Performed By: #### L [id number] ####[facility] [id number] [place] [address] [facility] PH OF VENOUS BLOOD 7.41 Normal 7.31-7.41 [facility] Comment on above: Order Comment: Bipap 16/8 RR 14 FiO2 75% Performed By: #### L [id number] ####[facility]PIR[facility] [id number] [place] [address] [place] 30on 02-27-2024 30 Normal [facility] 30 Normal [facility] ANESon 02-27-2024 ANES Normal [facility] ANTI-XA (HEPARIN LEVEL)on HEPARIN UNFRACTIONATED (U/ML) IN PPP BY CHROMOGENIC METHOD 0.51 IU/mL Normal 0.3-0.7 [facility] Comment on above: Result Comment: [place] roxaban and Apixaban will interfere with the anti Xa assay used to monitor UFH and LMWH. Performed By: #### L [id number] ####[facility] (BEAKER)[address] [place] [address] HEPARIN UNFRACTIONATED (U/ML) IN PPP BY CHROMOGENIC METHOD 0.28 IU/mL Low 0.3-0.7 [facility] Comment on above: Order Comment: Check anti-Xa level every 6 hours while on heparin infusion, or per protocol. Result Comment: [place] roxaban and Apixaban will interfere with the anti Xa assay used to monitor UFH and LMWH. Performed By: #### L [id number] ####[facility] (BEAKER)[address] [place] [address] HEPARIN UNFRACTIONATED (U/ML) IN PPP BY CHROMOGENIC METHOD 0.21 IU/mL Low 0.3-0.7 [facility] Comment on above: Result Comment: [place] roxaban and Apixaban will interfere with the anti Xa assay used to monitor UFH and LMWH. Performed By: #### L [id number] ####[facility] ([facility])[address] [place] [address] BASIC METABOLIC PANELon 02-12 Anion gap [Moles/Vol] 9 mmol/L Normal 7-20 [facility] Comment on above: Performed By: #### L [id number] ####[facility] ([facility])[address] [place] [address] Calcium [Mass/Vol] 8.4 mg/dL Low 8.6-10.3 [facility] Comment on above: Performed By: #### L [id number] ####[facility] ([facility])[address] [place] [address] Chloride [Moles/Vol] 105 mmol/L Normal 98-107 [facility] Comment on above: Performed By: #### L [id number] ####[facility] ([facility])[address] [place] [address] CO2 [Moles/Vol] 27 mmol/L Normal 21-31 [facility] Comment on above: Performed By: #### L [id number] ####[facility] ([facility])[address] [place] [address] Creatinine [Mass/Vol] 0.88 mg/dL Normal 0.70-1.30 [facility] Comment on above: Performed By: #### L [id number] ####[facility] ([facility])[address] [place] [address] GLOMERULAR FILTRATION RATE ML/MIN/1.73 SQ M.PREDICTED 88.0 mL/min/1.73m*2 Normal >60.0 U [facility] Comment on above: Result Comment: [facility]???s estimated glomerular filtration rate [...] of individuals. Performed By: #### L [id number] ####[facility] (BEAKER)[address] [place] [address] Glucose [Mass/Vol] 116 mg/dL High 70-100 [facility] Comment on above: Performed By: #### L [id number] ####[facility] (BEAKER)[address] [place] [address] Potassium [Moles/Vol] 3.8 mmol/L Normal 3.5-5.1 [facility] Comment on above: Performed By: #### L [id number] ####[facility] (BEAKER)[address] [place] [address] Sodium [Moles/Vol] 137 mmol/L Normal 136-145 [facility] Comment on above: Performed By: #### L [id number] ####[facility] (BEAKER)[address] [place] [address] Urea nitrogen [Mass/Vol] 11 mg/dL Normal 7-25 [facility] Comment on above: Performed By: #### L [id number] ####[facility] (BEAKER)[address] [place] [address] UREA NITROGEN/CREATININE (MASS RATIO) IN SER/PLAS 12.5 Normal [facility] Comment on above: Performed By: #### L [id number] ####[facility] (BEAKER)[address] [place] [address] BLOOD CULTUREon 02-27-2024 Bacteria identified Cx Nom (Bld) No growth at 5 days Normal [facility] Comment on above: Performed By: #### L [id number] ####[facility] (BEAKER)[address] [place] [address] CALCIUM, IONIZEDon CALCIUM IONIZED (MMOL/L) IN BLOOD 1.20 mmol/L Normal 1.15-1.33 [facility] Comment on above: Performed By: #### C ALCIUM, IONIZED ####[facility] RESPIRAT[facility] [id number] [place] [address] [place] CBC WITH AUTO DIFFERENTIALon 02-27-2024 Basophils (Bld) [#/Vol] 0.02 10*3/uL Normal 0.00-0.20 [facility] Comment on above: Performed By: #### L [id number] ####[facility] (BEAKER)[address] [place] [address] Basophils/100 WBC (Bld) 0.4 % Normal 0.0-1.0 [facility] Comment on above: Performed By: #### L [id number] ####[facility] (BEAKER)[address] [place] [address] Eosinophils (Bld) [#/Vol] 0.03 10*3/uL Normal 0.00-0.5 0 [facility] Comment on above: Performed By: #### L [id number] ####[facility] (BEAKER)[address] [place] [address] Eosinophils/100 WBC (Bld) 0.7 % Normal 0.0-6.0 [facility] Comment on above: Performed By: #### L [id number] ####[facility] (BEAKER)[address] [place] [address] Erythrocyte distribution width (RBC) [Ratio] 13.1 % Normal 11.5-15.0 [facility] Comment on above: Performed By: #### L [id number] ####[facility] (BEAKER)[address] [place] [address] ERYTHROCYTE MEAN CORPUSCULAR HEMOGLOBIN CONCENTRATION (G/DL) BY AUTOMATED 31.8 g/dL Low 32.0-35.0 [facility] Comment on above: Performed By: #### L [id number] ####[facility] ([facility])[address] [place] [address] Hematocrit (Bld) [Volume fraction] 37.7 % Low 39.0-55.0 [facility] Comment on above: Performed By: #### L [id number] ####[facility] ([facility])[address] [place] [address] Hemoglobin (Bld) [Mass/Vol] 12.0 g/dL Low 13.0-17.0 [facility] Comment on above: Performed By: #### L [id number] ####[facility] ([facility])[address] [place] [address] Immature granulocytes (Bld) [#/Vol] 0.02 10*3/uL Normal 0.00-0.20 [facility] Comment on above: Performed By: #### L [id number] ####[facility] ([facility])[address] [place] [address] Immature granulocytes/100 WBC (Bld) 0.4 % Normal 0.0-1.0 [facility] Comment on above: Performed By: #### L [id number] ####[facility] ([facility])[address] [place] [address] IMMATURE PLATELET FRACTION % 3.0 % Normal 0.8-6.3 [facility] Comment on above: Performed By: #### L [id number] ####[facility] [place] [address] Lymphocytes (Bld) [#/Vol] 0.73 10*3/uL Low 1.20-4.0 0 [facility] Comment on above: Performed By: #### L [id number] ####[facility] (BEAKER)[address] [place] [address] Lymphocytes/100 WBC (Bld) 16.0 % Low 20.0-45.0 [facility] Comment on above: Performed By: #### L [id number] ####[facility] (BEAKER)[address] [place] [address] MCH (RBC) [Entitic mass] 32.1 pg Normal 27.0-33.0 [facility] Comment on above: Performed By: #### L [id number] ####[facility] (BEAKER)[address] [place] [address] MCV (RBC) [Entitic vol] 100.8 fL High 82.0-98.0 U [facility] Comment on above: Performed By: #### L [id number] ####[facility] (BEAKER)[address] [place] [address] Monocytes (Bld) [#/Vol] 0.85 10*3/uL Normal 0.10-1.00 [facility] Comment on above: Performed By: #### L [id number] ####[facility] (BEAKER)[address] [place] [address] Monocytes/100 WBC (Bld) 18.7 % High 5.0-12.0 U [facility] Comment on above: Performed By: #### L [id number] ####[facility] (BEAKER)[address] [place] [address] Neutrophils (Bld) [#/Vol] 2.90 10*3/uL Normal 1.60-7.6 0 [facility] Comment on above: Performed By: #### L [id number] ####[facility] (BEAKER)[address] [place] [address] Neutrophils/100 WBC (Bld) 63.8 % Normal 40.0-72.0 [facility] Comment on above: Performed By: #### L [id number] ####[facility] (BEAKER)[address] [place] [address] NRBC (PER 100 WBCS) BY AUTOMATED COUNT 0.0 % Normal 0 [facility] Comment on above: Performed By: #### L [id number] ####[facility] (BEAKER)[address] [place] [address] PLATELETS (10*3/UL) IN BLOOD AUTOMATED COUNT 134 10*3/uL Low 150-400 [facility] Comment on above: Performed By: #### L [id number] ####[facility] [place] [address] RBC (Bld) [#/Vol] 3.74 10*6/uL Low 4.20-5.70 [facility] Comment on above: Performed By: #### L [id number] ####[facility] ([facility])[address] [place] [address] WBC (Bld) [#/Vol] 4.55 10*3/uL Normal 4.00-10.60 [facility] Comment on above: Performed By: #### L [id number] ####[facility] ([facility] [place] [address] HPon 02-27-2024 HP Normal [facility] POTASSIUM, WHOLE BLOODon Potassium [Moles/Vol] 3.4 mmol/L Low 3.5-5.1 [facility] Comment on above: Performed By: #### P OTASSIUM, WHOLE BLOOD ####[facility] RESPIR[facility] [id number] [place] [address] [place] SODIUM, WHOLE BLOODon 2023 SODIUM, WHOLE BLOOD 135 Low 136-145 [facility] Comment on above: Performed By: #### S ODIUM, WHOLE BLOOD ####[facility] RESPIRAT[facility] [id number] [place] [address] [place] TROPONIN Ion 02-27-2024 Troponin I.cardiac [Mass/Vol] 0.04 ng/mL Normal 0.00-0.04 [facility] Comment on above: Performed By: #### L [id number] ####[facility] (BEAKER)[address] [place] [address] Troponin I.cardiac [Mass/Vol] 0.02 ng/mL Normal 0.00-0.04 [facility] Comment on above: Performed By: #### L [id number] ####[facility] ([facility])[address] [place] [address] Troponin I.cardiac [Mass/Vol] 0.01 ng/mL Normal 0.00-0.04 [facility] Comment on above: Performed By: #### L [id number] ####[facility] ([facility])[address] [place] [address] Troponin I.cardiac [Mass/Vol] 0.01 ng/mL Normal 0.00-0.04 [facility] Comment on above: Performed By: #### L [id number] ####[facility] ([facility])[address] [place] [address] Troponin I.cardiac [Mass/Vol] 0.02 ng/mL Normal 0.00-0.04 [facility] Comment on above: Performed By: #### L [id number] ####[facility] ([facility])[address] [place] [address] Troponin I.cardiac [Mass/Vol] 0.01 ng/mL Normal 0.00-0.04 [facility] Comment on above: Performed By: #### L [id number] ####[facility] ([facility])[address] [place] [address] 30on 02-26-2024 30 The patient is Moderately Stable - Low risk of patient condition declining or worsening The patient's goals for the shift include The clinical goals for the shift include Over the shift, the patient did not make progress toward the following goals. Normal [facility] ANTI-XA (HEPARIN LEVEL)on HEPARIN UNFRACTIONATED (U/ML) IN PPP BY CHROMOGENIC METHOD 0.14 IU/mL Invalid Interpretation Code 0.3-0.7 [facility] Comment on above: Result Comment: [place] roxaban and Apixaban will interfere with the anti Xa assay used to monitor UFH and LMWH. Performed By: #### L [id number] ####[facility] ([facility])[address] [address] HEPARIN UNFRACTIONATED (U/ML) IN PPP BY CHROMOGENIC METHOD <0.10 Invalid Interpretation Code 0.3-0.7 [facility] Comment on above: Result Comment: [place] roxaban and Apixaban will interfere with the anti Xa assay used to monitor UFH and LMWH. Performed By: #### L [id number] ####[facility] (BEAKER)[address] [place] [address] APOLIPOPROTEIN B-100on 02-25 Magnesium [Mass/Vol] 50 mg/dL Low 66-133 [facility] Comment on above: Result Comment: REFE RENCE INTERVAL: Apolipoprotein BA desirable fasting serum Apo B concentration for the preventionof atherosclerotic cardiovascular disease in adults is less than90 mg/dL. A fasting serum Apo B concentration of 130 mg/dL orgreater corresponds to a LDL cholesterol concentration greaterthan 160 mg/dL and constitutes a risk enhancing factor foratherosclerotic cardiovascular disease in adults.Performed By: [address] [place], [place] [id number] Director: Josh Olvera MD, PhDCLIA Number: [id number] Performed By: #### L [id number] ####[facility] ([facility])[address] [place] [address] APTTon 02-26-2024 ACTIVATED PARTIAL THROMBOPLASTIN TIME IN PPP BY COAGULATION ASSAY 32.6 Seconds Normal 25.0-35.0 [facility] Comment on above: Result Comment: Clin ical significance of the APTT is questionable in the presence of heparin. Performed By: #### L [id number] ####[facility] ([facility] [place] [address] B-TYPE NATRIURETIC PEPTIDEon 02-26-2024 Natriuretic peptide B (Bld) [Mass/Vol] 321 pg/mL High 0-100 [facility] Comment on above: Performed By: #### L [id number] ####[facility] [facility] [place] [address] CBC WITH AUTO DIFFERENTIALon 02-26-2024 Basophils (Bld) [#/Vol] 0.03 10*3/uL Normal 0.00-0.20 [facility] Comment on above: Performed By: #### L [id number] ####[facility] (BEAKER)[address] [place] [address] Basophils/100 WBC (Bld) 0.5 % Normal 0.0-1.0 [facility] Comment on above: Performed By: #### L [id number] ####[facility] (BEAKER)[address] [place] [address] Eosinophils (Bld) [#/Vol] 0.04 10*3/uL Normal 0.00-0.5 0 [facility] Comment on above: Performed By: #### L [id number] ####[facility] (BEAKER)[address] [place] [address] Eosinophils/100 WBC (Bld) 0.6 % Normal 0.0-6.0 [facility] Comment on above: Performed By: #### L [id number] ####[facility] (BEAKER)[address] [place] [address] Erythrocyte distribution width (RBC) [Ratio] 12.9 % Normal 11.5-15.0 [facility] Comment on above: Performed By: #### L [id number] ####[facility] (BEAKER)[address] [place] [address] ERYTHROCYTE MEAN CORPUSCULAR HEMOGLOBIN CONCENTRATION (G/DL) BY AUTOMATED 31.2 g/dL Low 32.0-35.0 [facility] Comment on above: Performed By: #### L [id number] ####[facility] (BEAKER)[address] [place] [address] Hematocrit (Bld) [Volume fraction] 43.6 % Normal 39.0-55.0 [facility] Comment on above: Performed By: #### L [id number] ####[facility] (BEAKER)[address] [place] [address] Hemoglobin (Bld) [Mass/Vol] 13.6 g/dL Normal 13.0-17.0 [facility] Comment on above: Performed By: #### L [id number] ####[facility] [place] [address] Immature granulocytes (Bld) [#/Vol] 0.03 10*3/uL Normal 0.00-0.20 [facility] Comment on above: Performed By: #### L [id number] ####[facility])[address] [place] [address] Immature granulocytes/100 WBC (Bld) 0.5 % Normal 0.0-1.0 [facility] Comment on above: Performed By: #### L [id number] ####[facility] ([facility])[address] [place] [address] Lymphocytes (Bld) [#/Vol] 0.52 10*3/uL Low 1.20-4.0 0 [facility] Comment on above: Performed By: #### L [id number] ####[facility] ([facility])[address] [place] [address] Lymphocytes/100 WBC (Bld) 8.4 % Low 20.0-45.0 [facility] Comment on above: Performed By: #### L [id number] ####[facility] ([facility])[address] [place] [address] MCH (RBC) [Entitic mass] 32.3 pg Normal 27.0-33.0 [facility] Comment on above: Performed By: #### L [id number] ####[facility] ([facility])[address] [place] [address] MCV (RBC) [Entitic vol] 103.6 fL High 82.0-98.0 [facility] Comment on above: Performed By: #### L [id number] ####[facility] ([facility])[address] [place] [address] Monocytes (Bld) [#/Vol] 0.71 10*3/uL Normal 0.10-1.00 [facility] Comment on above: Performed By: #### L [id number] ####[facility] (BEAKER)[address] [place] [address] Monocytes/100 WBC (Bld) 11.5 % Normal 5.0-12.0 [facility] Comment on above: Performed By: #### L [id number] ####[facility] (BEAKER)[address] [place] [address] Neutrophils (Bld) [#/Vol] 4.86 10*3/uL Normal 1.60-7.6 0 [facility] Comment on above: Performed By: #### L [id number] ####[facility] (BEAKER)[address] [place] [address] Neutrophils/100 WBC (Bld) 78.5 % High 40.0-72.0 [facility] Comment on above: Performed By: #### L [id number] ####[facility] (BEAKER)[address] [place] [address] NRBC (PER 100 WBCS) BY AUTOMATED COUNT 0.0 % Normal 0 [facility] Comment on above: Performed By: #### L [id number] ####[facility] (BEAKER)[address] [place] [address] PLATELETS (10*3/UL) IN BLOOD AUTOMATED COUNT 153 10*3/uL Normal 150-400 [facility] Comment on above: Performed By: #### L [id number] ####[facility] (BEAKER)[address] [place], [place] [address] RBC (Bld) [#/Vol] 4.21 10*6/uL Normal 4.20-5.70 [facility] Comment on above: Performed By: #### L [id number] ####[facility] (BEAKER)[address] [place] [address] WBC (Bld) [#/Vol] 6.19 10*3/uL Normal 4.00-10.60 [facility] Comment on above: Performed By: #### L [id number] ####[facility] (BEAKER)[address] [place] [address] CKon 02-26-2024 CREATINE KINASE (U/L) IN SER/PLAS 94.0 U/L Normal 30.0-223.0 [facility] Comment on above: Performed By: #### L [id number] ####[facility] (BEAKER)[address] [place] [address] COMPREHENSIVE METABOLIC PANE Larry 02-26-2024 Albumin [Mass/Vol] 3.4 g/dL Low 3.5-5.7 [facility] Comment on above: Performed By: #### L [id number] ####[facility] (BEAKER)[address] [place] [address] ALP [Catalytic activity/Vol] 89 U/L Normal 34-104 [facility] Comment on above: Performed By: #### L [id number] ####[facility] (BEAKER)[address] [place] [address] ALT [Catalytic activity/Vol] 16 U/L Normal 7-52 [facility] Comment on above: Performed By: #### L [id number] ####[facility] (BEAKER)[address] [place] [address] Anion gap [Moles/Vol] 9 mmol/L Normal 7-20 [facility] Comment on above: Performed By: #### L [id number] ####[facility] (BEAKER)[address] [place] [address] AST [Catalytic activity/Vol] 20 U/L Normal 13-39 [facility] Comment on above: Performed By: #### L [id number] ####[facility] (BEAKER)[address] [place] [address] Bilirubin [Mass/Vol] 1.0 mg/dL Normal 0.3-1.0 [facility] Comment on above: Performed By: #### L [id number] ####[facility] (BEAKER)[address] [place] [address] Calcium [Mass/Vol] 8.6 mg/dL Normal 8.6-10.3 [facility] Comment on above: Performed By: #### L [id number] ####[facility] (BEAKER)[address] [place] [address] Chloride [Moles/Vol] 105 mmol/L Normal 98-107 [facility] Comment on above: Performed By: #### L [id number] ####[facility])[address] [place] [address] CO2 [Moles/Vol] 30 mmol/L Normal 21-31 [facility] Comment on above: Performed By: #### L [id number] ####[facility] ([facility])[address] [place] [address] Creatinine [Mass/Vol] 0.90 mg/dL Normal 0.70-1.30 [facility] Comment on above: Performed By: #### L [id number] ####[facility] ([facility])[address] [place] [address] GLOMERULAR FILTRATION RATE ML/MIN/1.73 SQ M.PREDICTED 87.4 mL/min/1.73m*2 Normal >60.0 U [facility] Comment on above: Result Comment: [facility]???s estimated glomerular filtration rate [...] of individuals. Performed By: #### L [id number] ####[facility])[address] [place] [address] Glucose [Mass/Vol] 127 mg/dL High 70-100 [facility] Comment on above: Performed By: #### L [id number] ####[facility])[address] [place] [address] Potassium [Moles/Vol] 3.4 mmol/L Low 3.5-5.1 [facility] Comment on above: Performed By: #### L [id number] ####[facility] ([facility])[address] [place] [address] Protein [Mass/Vol] 6.9 g/dL Normal 6.0-8.3 [facility] Comment on above: Performed By: #### L [id number] ####[facility] ([facility])[address] [place] [address] Sodium [Moles/Vol] 141 mmol/L Normal 136-145 [facility] Comment on above: Performed By: #### L [id number] ####[facility] ([facility])[address] [place] [address] Urea nitrogen [Mass/Vol] 14 mg/dL Normal 7-25 [facility] Comment on above: Performed By: #### L [id number] ####[facility] ([facility])[address] [place] [address] UREA NITROGEN/CREATININE (MASS RATIO) IN SER/PLAS 15.6 Normal [facility] Comment on above: Performed By: #### L [id number] ####[facility] ([facility])[address] [place] [address] CONSULTon 02-26-2024 CONSULT Normal [facility] CTA CHEST W IV CONTRASTon CTA CHEST W IV CONTRAST [facility] 02-26-2024 ETHANOL (MG/DL) IN SER/PLAS <10 Normal [facility] Comment on above: Performed By: #### L [id number] ####[facility] ([facility])[address] [place] [address] ETHANOL CALCULATED (%) Normal Un [facility] Comment on above: Performed By: #### L [id number] ####[facility])[address] [place] [address] HEMOGLOBIN A1Con 02-26-2024 Glucose [Mass/Vol] 88 mg/dL Normal [facility] Comment on above: Performed By: #### L [id number] ####[facility] ([facility])[address] [place] [address] HbA1c (Bld) [Mass fraction] 4.7 % Normal 4.0-6.0 [facility] Comment on above: Performed By: #### L [id number] ####[facility] ([facility])[address] [place] [address] HPon 02-26-2024 HP Normal [facility] LIPID PANELon 02-26-2024 CHOL/HDL 2.5 mg/dL Normal [facility] Comment on above: Performed By: #### L [id number] ####[facility] ([facility])[address] [place] [address] Cholesterol [Mass/Vol] 93 mg/dL Low 120-200 [facility] Comment on above: Performed By: #### L [id number] ####[facility] ([facility])[address] [place] [address] Magnesium [Mass/Vol] 59 mg/dL Normal 40-149 [facility] Comment on above: Result Comment: TRIG LYCERIDE REFERENCE RANGE:20 YEARS AND OLDER CARDIOVASCULAR RISKLESS THAN 150 mg/dL LOW [id number] TO 199 mg/dL BORDERLINE [id number] mg/dL AND GREATER HIGH RISK Performed By: #### L [id number] ####[facility] ([facility])[address] [place] [address] Magnesium [Mass/Vol] 44 mg/dL Normal 0-160 [facility] Comment on above: Performed By: #### L [id number] ####[facility])[address] [place] [address] Magnesium [Mass/Vol] 37 mg/dL Normal 23-92 [facility] Comment on above: Performed By: #### L [id number] ####[facility] (BEAKER)[address] [place] [address] NON HDL CHOL. (LDL+VLDL) 56 Normal [facility] Comment on above: Performed By: #### L [id number] ####[facility] ([facility])[address] [place] [address] TOTAL VLDL-C 12 mg/dL Normal 0-40 [facility] Comment on above: Performed By: #### L [id number] ####[facility] ([facility])[address] [place] [address] LIPOPROTEIN A (LPA)on 2023 Magnesium [Mass/Vol] 10 mg/dL Normal <=29 [facility] Comment on above: Result Comment: Perf ormed By: [email or web address] [place], [place] [email or web address] Director: Josh Olvera MD, PhDCLIA Number: [id number] Performed By: #### L [id number] ####[facility] ([facility])[address] [place] [address] MAGNESIUMon 02-26-2024 Magnesium [Mass/Vol] 1.7 mg/dL Low 1.9-2.7 [facility] Comment on above: Performed By: #### L [id number] ####[facility] ([facility])[address] [place] [address] PHOSPHORUSon 02-26-2024 Magnesium [Mass/Vol] 3.7 mg/dL Normal 2.5-5.0 [facility] Comment on above: Performed By: #### L [id number] ####[facility] ([facility])[address] [place] [address] TOXICOLOGY PANEL URINEon AMPHETAMINE+METHAMPHETAMIN E SCREEN (PRESENCE) IN URINE Negative Normal Negative [facility] Comment on above: Performed By: #### L [id number] ####[facility] ([facility])[address] [place] [address] BARBITURATES PRESENCE IN URINE BY SCREEN METHOD Negative Normal Negative [facility] Comment on above: Performed By: #### L [id number] ####[facility] ([facility])[address] [place] [address] Benzodiazepines Ql (U) Negative Normal Negative [facility] Comment on above: Performed By: #### L [id number] ####[facility] ([facility])[address] [place] [address] CANNABINOID (PRESENCE) IN URINE BY SCREEN METHOD Negative Normal Negative [facility] Comment on above: Performed By: #### L [id number] ####[facility] (BEAKER)[address] [place] [address] Cocaine Ql (U) Negative Normal Negative [facility] Comment on above: Performed By: #### L [id number] ####[facility])[address] [place] [address] METHADONE (PRESENCE) IN URINE BY SCREEN METHOD Negative Normal Negative [facility] Comment on above: Performed By: #### L [id number] ####[facility])[address] [place] [address] OPIATES (PRESENCE) IN URINE BY SCREEN METHOD Negative Normal Negative [facility] Comment on above: Performed By: #### L [id number] ####[facility] ([facility])[address] [place] [facility] [place] [address] PHENCYCLIDINE PRESENCE IN URINE BY SCREEN METHOD Negative Normal Negative [facility] Comment on above: Performed By: #### L [id number] ####[facility] (BEAKER)[address] [facility] [place] [address] Propoxyphene Screen Ql (U) Negative Normal Negative [facility] Comment on above: Performed By: #### L [id number] ####[facility] (BEAKER)[address] [facility] [place] [address] TRICYCLIC ANTIDEPRESSANTS (PRESENCE) IN URINE Negative Normal Negative [facility] Comment on above: Performed By: #### L [id number] ####[facility] (BEAKER)[address] [place] [address] TROPONIN Ion 02-26-2024 Troponin I.cardiac [Mass/Vol] 0.02 ng/mL Normal 0.00-0.04 [facility] Comment on above: Performed By: #### L [id number] ####[facility] ([facility])[address] [place] [address] Troponin I.cardiac [Mass/Vol] 0.02 ng/mL Normal 0.00-0.04 [facility] Comment on above: Performed By: #### L [id number] ####[facility] ([facility])[address] [place] [address] Troponin I.cardiac [Mass/Vol] 0.01 ng/mL Normal 0.00-0.04 [facility] Comment on above: Performed By: #### L [id number] ####[facility] ([facility])[address] [place] [address] TSHon 02-26-2024 THYROTROPIN (MIU/L) IN SER/PLAS BY DETECTION LIMIT <= 0.05 MIU/L 1.59 mIU/L Normal 0.34-5.60 [facility] Comment on above: Performed By: #### L [id number] ####[facility] ([facility])[address] [place] [address] CBC AND AUTO DIFFon 02-22-20 ABSOLUTE BASOPHIL 0.0 X10E9/L Normal 0.0-0.2 [facility] Comment on above: Performed By: #### P INR, 56940-1 #### [facility] ([id number]) [address] [place] [address] #### CBCA, CMP #### [facility] ([id number]) [address] [place] [address], [address] [place] [address] ABSOLUTE NEUTROPHIL 2.3 X10E9/L Normal 1.5-6.6 [facility] Comment on above: Performed By: #### P INR, 60024-2 #### [facility] ([id number]) [address] [place] [address] #### CBCA, CMP #### [facility] ([id number]) [address], [address] [place] [address] Basophils/100 WBC (Bld) 0.7 % Normal [facility] Comment on above: Performed By: #### P INR, 83219-4 #### [facility] ([id number]) [address] [place] [address] #### CBCA, CMP #### [facility] ([id number]) [address], [address] [place] [address] Eosinophils (Bld) [#/Vol] 0.2 10*3/uL Normal 0.0-0.4 [facility] Comment on above: Performed By: #### P INR, 39688-4 #### [facility] ([id number]) [address] [place] [address] #### CBCA, CMP #### [facility] ([id number]) [address], [address] [place] [address] Eosinophils/100 WBC (Bld) 3.8 % Normal [facility] Comment on above: Performed By: #### P INR, 14497-9 #### [facility] ([id number]) [address] [place] [address] #### CBCA, CMP #### [facility] ([id number]) [address], [address] [place] [address] Erythrocyte distribution width (RBC) [Ratio] 14.3 % Normal 11.5-15.0 [facility] Comment on above: Performed By: #### P INR, 90495-1 #### [facility] ([id number]) [address] [place] [address] #### CBCA, CMP #### [facility] ([id number]) [address], [address] [place] [address] Hematocrit (Bld) [Volume fraction] 42.1 % Normal 39-49 [facility] Comment on above: Performed By: #### P INR, 98660-4 #### [facility] ([id number]) [address] [place] [address] #### CBCA, CMP #### [facility] ([id number]) [address], [address] [place] [address] Hemoglobin (Bld) [Mass/Vol] 13.9 g/dL Normal 13.0-17.0 [facility] Comment on above: Performed By: #### P INR, 83414-8 #### [facility] ([id number]) [address] [place] [address] #### CBCA, CMP #### [facility] ([id number]) [address], [address] [place] [address] Lymphocytes (Bld) [#/Vol] 1.4 10*3/uL Normal 1.0-3.5 [facility] Comment on above: Performed By: #### P INR, 43041-8 #### [facility] ([id number]) [address] [place] [address] #### CBCA, CMP #### [facility] ([id number]) [address], [address] [place] [address] Lymphocytes/100 WBC (Bld) 31.5 % Normal [facility] Comment on above: Performed By: #### P INR, 42686-8 #### [facility] ([id number]) [address] [place] [address] #### CBCA, CMP #### [facility] ([id number]) [address], [address] [place] [address] MCH (RBC) [Entitic mass] 32.8 pg Normal 27-34 [facility] Comment on above: Performed By: #### P INR, 02595-9 #### [facility] ([id number]) [address] [place] [address] #### CBCA, CMP #### [facility] ([id number]) [address], [address] [place] [address] MCHC (RBC) [Mass/Vol] 32.9 g/dL Normal 32-[address] [facility] Comment on above: Performed By: #### P INR, 75843-8 #### [facility] ([id number]) [address] [place] [address] #### CBCA, CMP #### [facility] ([id number]) [address], [address] [place] [address] MCV (RBC) [Entitic vol] 100 fL Normal 80-100 [facility] Comment on above: Performed By: #### P INR, 73319-3 #### [facility] ([id number]) [address] [place] [address] #### CBCA, CMP #### [facility] ([id number]) [address], [address] [place] [address] Monocytes (Bld) [#/Vol] 0.5 10*3/uL Normal 0-0.9 [facility] Comment on above: Performed By: #### P INR, 49509-3 #### [facility] ([id number]) [address] [place] [address] #### CBCA, CMP #### [facility] ([id number]) [address], [address] [place] [address] Monocytes/100 WBC (Bld) 10.8 % Normal [facility] Comment on above: Performed By: #### P INR, 89400-7 #### [facility] ([id number]) [address] [place] [id number] #### CBCA, CMP #### [facility] ([id number]) [address] [place] [address] Neutrophils/100 WBC (Bld) 53.2 % Normal [facility] Comment on above: Performed By: #### P INR, 56025-7 #### [facility] ([id number]) [address] [place] [address] #### CBCA, CMP #### [facility] ([id number]) [address] [place] [address] Platelet mean volume (Bld) [Entitic vol] 9.8 fL Normal 7-12 [facility] Comment on above: Performed By: #### P INR, 59870-4 #### [facility] ([id number]) [address] [place] [id number] #### CBCA, CMP #### [facility] ([id number]) [address] [place] [id number] Platelets (Bld) [#/Vol] 164 10*3/uL Normal 150-450 [facility] Comment on above: Performed By: #### P INR, 15317-8 #### [facility] ([id number]) [address] [place] [address] 9[address] #### CBCA, CMP #### [facility] ([id number]) [address] [place] [address] RBC COUNT 4.22 X10E12/L Normal 4.10-5.70 [facility] Comment on above: Performed By: #### P INR, 24797-3 #### [facility] ([id number]) [address] [place] [address] 87287 #### CBCA, CMP #### [facility] ([id number]) [address], [address] [place] [address] WBC (Bld) [#/Vol] 4.3 10*3/uL Normal 4.0-11.0 [facility] Comment on above: Performed By: #### P INR, 30675-4 #### [facility] ([id number]) [address] [place] [address] 70796 #### CBCA, CMP #### [facility] ([id number]) [facility], [address] [place] [address] COMPREHENSIVE METABOLIC PANE [facility] 02-22-2024 Albumin [Mass/Vol] 3.4 g/dL Normal 3.2-5.3 [facility] Comment on above: Performed By: #### P INR, 49142-2 #### [facility] ([id number]) [address] [place] [address] 76244 #### CBCA, CMP #### [facility] ([id number]) [address] [place] [address], [address] [place] [address] ALP [Catalytic activity/Vol] 88 U/L Normal 39-130 [facility] Comment on above: Performed By: #### P INR, 13212-1 #### [facility] ([id number]) [address] [place] [address] 38367 #### CBCA, CMP #### [facility] ([id number]) [address] [place] [address], [address] [place] [address] ALT [Catalytic activity/Vol] 15 U/L Normal 0-40 [facility] Comment on above: Performed By: #### P INR, 33254-4 #### [facility] ([id number]) [address] [place] [address] 22488 #### CBCA, CMP #### [facility] ([id number]) [address] [place] [address] Anion gap [Moles/Vol] 8 mmol/L Normal 5-[address] [facility] Comment on above: Performed By: #### P INR, 48892-6 #### [facility] ([id number]) [address] [place] [address] 87891 #### CBCA, CMP #### [facility] ([id number]) [address] [place] [address] AST [Catalytic activity/Vol] 21 U/L Normal 0-41 [facility] Comment on above: Performed By: #### P INR, 87544-2 #### [facility] ([id number]) [address] [place] [address] 16876 #### CBCA, CMP #### [facility] ([id number]) [address], [address] [place] [address] Bilirubin [Mass/Vol] 0.5 mg/dL Normal 0.3-1.2 [facility] Comment on above: Performed By: #### P INR, 86546-1 #### [facility] ([id number]) [address] [place] [address] 95435 #### CBCA, CMP #### [facility] ([id number]) [address] [place] [address] Calcium [Mass/Vol] 8.9 mg/dL Normal 8.5-10.5 [facility] Comment on above: Performed By: #### P INR, 80134-1 #### [facility] ([id number]) [address] [place] [address] #### CBCA, CMP #### [facility] ([id number]) [address] [place] [address] Chloride [Moles/Vol] 109 mmol/L Normal 98-109 [facility] Comment on above: Performed By: #### P INR, 09721-2 #### [facility] ([id number]) [address] [place] [address] 98769 #### CBCA, CMP #### [facility] ([id number]) [address] [place] [address] CO2 [Moles/Vol] 26 mmol/L Normal 22-32 [facility] Comment on above: Performed By: #### P INR, 32479-7 #### [facility] ([id number]) [address] [place] [address] 13111 #### CBCA, CMP #### [facility] ([id number]) [address] [place] [address] Creatinine [Mass/Vol] 0.80 mg/dL Normal 0.60-1.[address] [facility] Comment on above: Result Comment: METH OD TRACEABLE TO IDMS STANDARD Performed By: #### P INR, 37506-6 #### [facility] ([id number]) [address] [place] [address] 05271 #### CBCA, CMP #### [facility] ([id number]) [address] [place] [address] eGFR (CKD-EPI) NON-RACE DEPENDENT >90 Normal >59 [facility] Comment on above: Result Comment: Reported eGFR is based on the CKD-EPI 2020 equation that does not use a race coefficient. Performed By: #### P INR, 58556-9 #### [facility] ([id number]) [address] [place] [address] 22343 #### CBCA, CMP #### [facility] ([id number]) [address] [place] [address] Glucose [Mass/Vol] 106 mg/dL High 65-99 [facility] Comment on above: Performed By: #### P INR, 26113-6 #### [facility] ([id number]) [address] [place] [address] 07435 #### CBCA, CMP #### [facility] ([id number]) [address] [place] [address] Potassium [Moles/Vol] 3.4 mmol/L Low 3.5-5.[address] [facility] Comment on above: Performed By: #### P INR, 99491-3 #### [facility] ([id number]) [address] [place] [address] 05964 #### CBCA, CMP #### [facility] ([id number]) [address] [place] [address] Protein [Mass/Vol] 6.8 g/dL Normal 6.0-8.0 [facility] Comment on above: Performed By: #### P INR, 52901-1 #### [facility] ([id number]) [address] [place] [address] 23021 #### CBCA, CMP #### [facility] ([id number]) [address] [place] [address] Sodium [Moles/Vol] 143 mmol/L Normal 134-146 [facility] Comment on above: Performed By: #### P INR, 61701-1 #### [facility] ([id number]) [address] [place] [address] 58856 #### CBCA, CMP #### [facility] ([id number]) [address] [place] [address] Urea nitrogen [Mass/Vol] 15 mg/dL Normal 5-27 [facility] Comment on above: Performed By: #### P INR, 78276-8 #### [facility] ([id number]) [address] [place] [address] 20547 #### CBCA, CMP #### [facility] ([id number]) [address] [place] [address] PROTIME AND INRon 02-22-2024 INR Coag (PPP) [Relative time] 1.2 {INR} High 0.8-1.1 [facility] Comment on above: Performed By: #### P INR, 00114-5 #### [facility] ([id number]) [address] [place] [address] 73980 #### CBCA, CMP #### [facility] ([id number]) [address] [place] [address] PT Coag (PPP) [Time] 14.1 s High 9.8-13.2 [facility] Comment on above: Result Comment: NEW REFERENCE RANGE Performed By: #### P INR, 05729-4 #### [facility] ([id number]) [address] [place] [address] 03487 #### CBCA, CMP #### [facility] ([id number]) [address] [place] [address] aPTT Coag (PPP) [Time]on aPTT Coag (Bld) [Time] 39 s High 26-37 [facility] Comment on above: Result Comment: NEW REFERENCE RANGE Performed By: #### P INR, 60587-7 #### [facility] ([id number]) [address] [place] [address] 84559 #### CBCA, CMP #### [facility] ([id number]) [address] [place] [address] NURSNOTEon 02-19-2024 NURSNOTE [facility] HPon 02-09-2024 HP Normal [facility] 36on 02-08-2024 36 [facility] Vital Signs Date Time Vital Sign Value Performing Clinician Facility 07-04-2024 15:51-0500 Body temperature 97.81 [degF] Ru Schwarz MD Work Phone: [facility] 07-04-2024 15:51-0500 Diastolic blood pressure 59 mm[Hg] Ru Schwarz MD Work Phone: [facility] 07-04-2024 15:51-0500 Heart rate 62 /min Ru Schwarz MD Work Phone: [facility] 07-04-2024 15:51-0500 Respiratory rate 19 /min Ru Schwarz MD Work Phone: [facility] 07-04-2024 15:51-0500 SaO2% (BldA) [Mass fraction] 94 % Ru Schwarz MD Work Phone: [facility] 07-04-2024 15:51-0500 Systolic blood pressure 122 mm[Hg] Ru Schwarz MD Work Phone: [facility] 07-04-2024 04:36-0500 Body mass index (BMI) [Ratio] 30.08 kg/m2 Ru Schwarz MD Work Phone: [facility] 07-04-2024 04:36-0500 Body weight 100.6 kg Ru Schwarz MD Work Phone: [facility] 06-29-2024 12:17-0500 Body height 182.9 cm Ru Scwharz MD Work Phone: [facility] Encounters Encounter Date Encounter Type Care Provider Facility Start: 12-19-2024 End: 12-19-2024 ambulatory ALTAGRACIA RIVAS [facility] Start: 12-09-2024 End: 12-09-2024 ambulatory MICHAEL GALO [facility] Start: 11-29-2024 End: 11-29-2024 ambulatory ALTAGRACIA [facility] Start: 11-25-2024 ambulatory [facility] Start: 11-18-2024 End: 11-18-2024 ambulatory ALTAGRACIA [facility] Start: 11-12-2024 End: 11-13-2024 ambulatory [facility] Start: 10-30-2024 End: 11-01-2024 ambulatory [facility] Start: 10-17-2024 ambulatory [facility] Start: 10-08-2024 ambulatory [facility] Start: 09-04-2024 End: 09-04-2024 ambulatory [facility] Start: 08-30-2024 End: 08-30-2024 ambulatory [facility] Start: 08-29-2024 End: 08-29-2024 ambulatory Kelvin Langston Facility:[facility] Start: 08-29-2024 End: 08-29-2024 Departed Referred Kelvin Langston MD Work Phone: [facility] Start: 08-28-2024 ambulatory ALTAGRACIA [facility] Start: 08-27-2024 ambulatory [facility] Start: 08-27-2024 Encounter for preprocedural cardiovascular examination [facility] Start: 08-09-2024 End: 08-09-2024 ambulatory RANDOLPH [facility] Start: 08-01-2024 ambulatory [facility] Start: 08-01-2024 ambulatory [facility] Start: 07-19-2024 End: 07-19-2024 ambulatory [facility] Start: 07-16-2024 End: 07-16-2024 [facility] Start: 07-09-2024 End: 07-10-2024 Emergency department patient visit [facility] Start: 07-08-2024 End: 07-08-2024 ambulatory [facility] Start: 07-05-2024 End: 07-06-2024 Emergency department patient visit [facility] Start: 07-05-2024 End: 07-05-2024 Telephone encounter Angela Owusu [facility] Call Cecily silva Comment on above: Blood in Urine Start: 07-02-2024 End: 07-02-2024 ambulatory [facility] Start: 06-29-2024 End: 07-04-2024 Evaluation and management of inpatient Antoine Burleson Do, MD Work Phone: [facility] Acute Comment on above: Fall in home, initia l encounter (Primary Dx); Acute blood loss anemia Start: 06-28-2024 End: 06-29-2024 Emergency department patient visit [facility] Start: 06-26-2024 Emergency department patient visit [facility] Start: 06-26-2024 End: 06-26-2024 Emergency department patient visit [facility] Start: 06-19-2024 End: 06-19-2024 ambulatory [facility] Start: 05-30-2024 ambulatory JAXON RAY [facility] Start: 05-21-2024 End: 05-21-2024 ambulatory [facility] Start: 05-21-2024 End: 05-21-2024 ambulatory I [facility] Start: 05-15-2024 End: 05-15-2024 ambulatory Kelvin Langston [facility] Work Phone: Start: 05-15-2024 [facility] Work Phone: [facility] Start: 05-06-2024 ambulatory [facility] Start: 05-06-2024 ambulatory [facility] Start: 04-30-2024 End: 04-30-2024 ambulatory [facility] Start: 04-24-2024 End: 04-24-2024 ambulatory [facility] Start: 04-19-2024 End: 04-19-2024 ambulatory [facility] Start: 04-02-2024 End: 04-03-2024 ambulatory [facility] Start: 03-13-2024 End: 03-14-2024 ambulatory [facility] Start: 03-05-2024 Evaluation and manag ement of inpatient [facility] Start: 03-01-2024 Evaluation and manag ement of inpatient [facility] Start: 02-28-2024 Evaluation and manag ement of inpatient [facility] Start: 02-28-2024 Evaluation and manag ement of inpatient [facility] Start: 02-27-2024 Evaluation and manag ement of inpatient [facility] Start: 02-27-2024 Evaluation and manag ement of inpatient [facility] Start: 02-26-2024 Evaluation and manag ement of inpatient [facility] Start: 02-26-2024 Evaluation and manag ement of inpatient [facility] Start: 02-26-2024 Evaluation and manag ement of inpatient [facility] Start: 02-26-2024 End: 02-26-2024 ambulatory [facility] Start: 02-26-2024 End: 03-06-2024 Evaluation and management of inpatient SAILAJA YOUNGBLOOD [facility] Start: 02-22-2024 End: 02-22-2024 ambulatory [facility] Start: 02-09-2024 End: 02-09-2024 ambulatory [facility] Start: 02-09-2024 End: 02-09-2024 ambulatory [facility] Start: 02-09-2024 End: 02-09-2024 ambulatory [facility] Start: 01-10-2024 End: 01-10-2024 ambulatory RANDOLPH [facility] Start: 12-29-2023 ambulatory Nova Wang Facility:[facility] Start: 12-26-2023 End: 12-26-2023 ambulatory TABITHA LEUNG Facility:[facility] Start: 12-26-2023 End: 12-26-2023 Patient encounter procedure TABITHA LEUNG [facility] Start: 12-19-2023 ambulatory Nova Wang Facility:[facility] Start: 12-12-2023 End: 12-13-2023 ambulatory Nova Wang Facility:CD:[id number] Start: 12-12-2023 End: 12-12-2023 ambulatory Nova Wang Facility:CD:[id number] Procedures Date Procedure Procedure Detail Performing Clinician Start: 12-09-2024 Follow-up visit OBI EKW AMADOU Start: 11-29-2024 Follow-up visit OBI EKW AMADOU Start: 11-18-2024 Follow-up visit OBI EKW AMADOU Start: 11-12-2024 Follow-up visit OBI EKW AMADOU Start: 10-30-2024 Follow-up visit OBI EKW MAADOU Start: 08-28-2024 Follow-up visit OBI EKW AMADOU Start: 07-04-2024 Gluc bld gluc mntr d ev cleared fda spec home use Ru Schwarz MD Work Phone: Start: 07-04-2024 Basic metabolic pane l calcium total Ingrid J Arcelia PA Work Phone: Start: 07-04-2024 Gluc bld gluc [...] pane l calcium total Ingrid J Arcelia PA Work Phone: Start: 07-03-2024 End: 07-03-2024 Gluc [...] Basic metabolic panel calcium total Ingrid J Valdo-Jennifer PA Work Phone: Start: 07-01-2024 Gluc bld gluc mntr d ev cleared fda spec home use Ru Schwraz MD Work Phone: Start: 07-01-2024 Gluc bld [...] metabolic pane l calcium total Ingrid Perry Valdo-Jennifer PA Work Phone: Start: 07-01-2024 Gluc bld [...] Start: 06-30-2024 Blood count hematocrit Ingrid Perry Valdo-Jennifer PA Work Phone: Start: 06-30-2024 Gluc bld gluc mntr d ev cleared fda spec home use Ru Schwarz MD Work Phone: Start: 06-30-2024 RESP ARTERIAL LINE SETUP Wilberto Loomis MD Work Phone: Start: 06-30-2024 End: 06-30-2024 Basic metabolic panel calcium total Ingrid Lyle-Jennifer PA Work Phone: Start: 06-30-2024 End: 06-30-2024 [...] Phone: Start: 06-29-2024 Blood count hematocrit Ingrid Paniagua PA Work Phone: Start: 06-29-2024 Gluc bld gluc mntr d ev cleared fda spec home use Ru Schwarz MD Work Phone: Start: 06-29-2024 End: 06-29-2024 TRANSFUSE RED BLOOD CELLS Shar garcia MD Work Phone: Start: 06-29-2024 RESP ARTERIAL LINE SETUP Wilberto Loomis MD Work Phone: Start: 06-29-2024 Blood count hematocrit Ingrid Paniagua PA Work Phone: Start: 06-29-2024 End: 06-29-2024 TRANSFUSE RED BLOOD CELLS Fransico Villagomez MD Work Phone: Start: 06-29-2024 Gluc bld gluc mntr d ev cleared fda spec home use Ru Schwarz MD Work Phone: Start: 06-29-2024 REPEATED ABORH Ingrid Paniagua PA Work Phone: Start: 06-29-2024 End: 06-29-2024 Basic metabolic panel calcium total Ingrid Perry Monicachi-Junkins PA Work Phone: Start: 06-29-2024 Antibody screen Ru Schwarz MD Work Phone: Start: 06-29-2024 Culture bacterial quanttative colony count urine Ingrid Perry Monicachi-Junkins PA Work Phone: Start: 06-29-2024 Urnls dip stick/tabl et rgnt auto w/o microscopy Ingrid Perry Ticchi-Junkins PA Work Phone: Start: 06-29-2024 Adult depression scr eening assessment Angela Owusu Start: 06-29-2024 Radiologic exam ches t single view Ingrid Orlando Andersonchi-Junkins PA Work Phone: Start: 06-29-2024 End: 06-29-2024 Comprehensive metabolic panel Ingrid J Ticchi-Junkins PA Work Phone: Start: 06-29-2024 Ethanol [Mass/volume ] in Serum or Plasma Ingrid Orlando Ticchi-Junkins PA Work Phone: Start: 06-29-2024 End: 06-29-2024 Blood typing serologic abo Ingrid Orlando Andersonchi-Junkins PA Work Phone: Start: 06-29-2024 CROSSMATCH RBC Ingrid Orlando Ticchi-Junkins PA Work Phone: Start: 06-29-2024 REPEATED ABORH Ingrid J Ticchi-Junkins PA Work Phone: Start: 04-24-2024 Follow-up visit OBI EKW AMADOU Start: 04-02-2024 Follow-up visit OBI EKW AMADOU Start: 03-13-2024 Follow-up visit OBI EKW AMADOU Start: 02-09-2024 Follow-up visit OBI EKW AMADOU Start: 01-10-2024 Follow-up visit OBI EKW AMADOU Plan of Treatment Date Care Activity Detail Author Start: 06-29-2025 Depression Screening Depression Screening [facility] Start: 06-29-2025 Tobacco Screening Tobacco Screening [facility] Start: 08-29-2024 Bacteria identified in Urine by Culture Urine Culture [facility] Start: 08-29-2024 Urine culture [facility] Start: 05-15-2024 Bacteria identified in Urine by Culture Urine Culture [facility] Start: 05-15-2024 Urine culture [facility] Start: 01-14-2024 Influenza vaccination Influenza Vaccine [facility] Start: 2010 Fall Risk Screening Fall Risk Screening [facility] Start: 08-19-1995 Administration of varicella zoster vaccine Zoster (Shingles) Vaccine (1 of 2) [facility] Start: 1964 DTaP,Tdap and Td Vaccines (1 - Tdap) DTaP,Tdap and Td Vaccines (1 - Tdap) [facility] Immunizations Immunization Date Immunization Notes Care Provider Fa cility 06-29-2024 pneumococcal conj. 20-valent (PREVNAR-20) vaccine 0.5 mL Ru Schwarz MD Work Phone: [facility] 06-29-2024 flu vacc [id number] 6 mos up(PF) (FLULAVAL/FLUZONE/FLUAR IX TRIV) injection syringe 0.5 mL Ru Schwarz MD Work Phone: [facility] Payers Date Payer Category Payer Self-pay 2023 Medicare HMO [employer] [id number] 2021 Unknown [id number] 1945 Unknown [id number] [id number]7 1945 Unknown [id number] 2.16.840.1.078171.3.579.2.727 1945 Unknown [id number] 2.16.840.1.002667.3.579.2.727 1945 Unknown [id number] 2.16.840.1.017598.3.579.2.72 1945 Unknown [id number] 2.16.840.1.064185.3.579.2. 1945 Unknown [id number] 2.16.840.1.391852.3.579.2.128 6 1945 Unknown [id number] 2.16.840.1.015977.3.579.2.128 6 1945 Unknown [id number] 2.16.840.1.517114.3.579.2.128 6 1945 Unknown [id number] 2.16.840.1.644894.3.579.2.128 6 1945 Unknown [id number] 2.16.840.1.473574.3.579.2.128 6 1945 Unknown [id number] 2.16.840.1.515380.3.579.2.128 6 1945 Unknown [id number] 2.16.840.1.017390.3.579.2.128 6 1945 Unknown [id number] 2.16.840.1.910947.3.579.2.128 6 1945 Unknown [id number] 2.16.840.1.201350.3.579.2.128 6 Unknown [id number] 2.16.840.1.774351.3.579.2.531 Unknown [id number] 2.16.840.1.232045.3.579.2.531 Social History Date Type Detail Facility Tobacco smoking status [facility] Start: 06-29-2024 End: 07-05-2024 Sex Assigned At Male [facility] Tobacco smoking stat [facility] Unknown if ever smoked [facility] Work Phone: Start: 05-16-2024 End: 08-31-2024 Sex Male (finding) [facility] Start: 1945 Sex Assigned At Male Karly [facility] Start: 06-28-2024 Tobacco smoking stat [facility] Ex-smoker [facility] End: 05-15-2008 History of tobacco use Current smoker [facility] End: 05-15-2008 History of tobacco use Cigarette Smoker [facility] Start: 06-28-2024 Tobacco use and exposure Smokeless tobacco non-user [facility] Start: 06-29-2024 Alcoholic beverage intake Ex-drinker (finding) [facility] Start: 06-29-2024 End: 07-05-2024 History of Social function [facility] Has the [employer], [employer], or water company threatened to shut off services in your home in past 12Mo No [email or web address] Adolescent depressio n screening assessment 2 [facility] Start: 1945 Sex assigned at Not on file [facility] [employer] [facility] Goals Date Patient Goal Desired Activity /State Personal health goal Comment on above: Formatting of this n ote might be different from the original. Evaluation of progress towards goal: home with son and daughter in law Functional Status Date Assessment Result [facility] Mental Status Date Assessment Result [facility] Clinical Notes 01-10-2024 to 12-09-2024 Telephone Encounter - Angeladenis Owusu 07/05/2024 7:30 PM ESTTelephone Encounter - Angela Owusu 07/05/2024 7:30 PM ESTTelephone Encounter - Angela Owusu 07/05/2024 7:30 PM ESTAppointments Note Date & Type Note Facility 12-09-2024 Note [facility] 11-29-2024 Note [facility] 11-18-2024 Note [facility] 11-12-2024 Note [facility] 11-12-2024 Note [facility] 10-30-2024 Note [facility] 10-30-2024 Note [facility] 10-17-2024 Note [facility] 10-17-2024 Note Renal us [facility] 09-04-2024 Note Renal condition is i mproving with treatment. Regular aerobic exercise. Renal condition will be reassessed in 1 month. No associated orders from this encounter found during lookback period of 72 hours. [facility] 09-04-2024 Note [facility] 09-04-2024 Note H&P reviewed. The maria a garcia was examined and there are no changes to the H&P. [facility] 08-29-2024 Note [facility] order as diagnosis code did not pass medical necessity. [facility] 08-28-2024 Note [facility] 07-19-2024 Note [facility] 07-05-2024 Miscellaneous Notes Contract: 195 re [employer] for Patient Call was connected to Dr Santa griffin documented in this encounter [facility] 07-05-2024 Telephone encounter Note Contract: 195 re [employer] [facility] 07-05-2024 Telephone encounter Note Call was connected to Dr Santa griffin [email or web address] 07-04-2024 Nurse Note 1545 Report called to RAS Martinez at [facility]. Confirmed pickle pumper time from PTN, ontime. Pt updated. IV removed. 1715: Report given to transport team. Pt discharged in stable condition. [facility] 07-04-2024 Nurse Note 1545 Report called to RAS Martinez at [facility]. Confirmed pickle pumper time from PTN, ontime. Pt updated. IV removed. 1715: Report given to transport team. Pt discharged in stable condition. Pt pulse ox at 84%, pt placed on 2 liters of oxygen, notified patients nurse Ligia Soliz Rn of 02 placement. Pt resting quietly. documented in this encounter [facility] 07-04-2024 Plan of care note Problem: Pain Goal: Patient goal is pain score less than 4, able to rest, and participant in treatment plan as appropriate Description: INTERVENTIONS: 1. Encourage patient or legal territory service representative to report early pain and ask [...] per policy 9. Teach patient or legal territory service representative interventions for comforting Outcome: Adequate for [...] at the bedside 7. Instruct patient/ patient territory service representative about use of safety devices 8. Include patient/ patient territory service representative in decisions related to safety Outcome: Adequate for Discharge Note: Evaluation of progress towards goal: Pt will remain free from injury Problem: Moderate - High Risk Fall Score Description: Issa Fall Score of =/> 25 or indicated by [facility] Assessment Goal: Patient should be free from fall Description: Interventions: 1. [place] to environment 2. Hourly rounds addressing the [...] non-skid footwear 11. Teach patient and patient territory service representative to maintain environment for safety and [...] (cane, walker) within reach 19. Request patient territory service representative bring adaptive equipment/mobility aids from home or obtain and provide as needed 20. Consult pharmacy regarding effects of med's affecting mobility, cognition, and alternatives 21. Obtain physician order for PT if risk factors associated with mobility are present 22. Obtain physician order for OT as appropriate 23. Utilize diversional activities 24. Educate patient and patient territory service representative how to maintain a safe environment during visitation times (notify nurse prior to leaving bedside) 25. Consider appropriateness of medical or non-medical sociologist 26. Set up voiding schedule as appropriate (every 2 hours) Outcome: Adequate for Discharge Note: Evaluation of progress towards goal: Remain free from falls [facility] [employer] 07-04-2024 Miscellaneous Notes Problem: Pain Goal: Patient goal is pain score less than 4, able to rest, and participant in treatment plan as appropriate Description: INTERVENTIONS: 1. Encourage patient or legal territory service representative to report early pain and ask [...] per policy 9. Teach patient or legal territory service representative interventions for comforting Outcome: Adequate for [...] at the bedside 7. Instruct patient/ patient territory service representative about use of safety devices 8. Include patient/ patient territory service representative in decisions related to safety Outcome: Adequate for Discharge Note: Evaluation of progress towards goal: Pt will remain free from injury Problem: Moderate - High Risk Fall Score Description: Issa Fall Score of =/> 25 or indicated by [facility] Assessment Goal: Patient should be free from fall Description: Interventions: 1. [place] to environment 2. Hourly rounds addressing the [...] non-skid footwear 11. Teach patient and patient territory service representative to maintain environment for safety and [...] (cane, walker) within reach 19. Request patient territory service representative bring adaptive equipment/mobility aids from home or obtain and provide as needed 20. Consult pharmacy regarding effects of med's affecting mobility, cognition, and alternatives 21. Obtain physician order for PT if risk factors associated with mobility are present 22. Obtain physician order for OT as appropriate 23. Utilize diversional activities 24. Educate patient and patient territory service representative how to maintain a safe environment during visitation times (notify nurse prior to leaving bedside) 25. Consider appropriateness of medical or non-medical sociologist 26. Set up voiding schedule as appropriate (every 2 hours) Outcome: Adequate for Discharge Note: Evaluation of progress towards goal: Remain free from falls DISCHARGE PLANNING NOTE Case discussed in daily transition rounds and chart reviewed by CN. Barriers to discharge include no medical barriers Discharge Plan remains: [facility] aware of dc order today-transport ambulette pickle pumper time is 4pm. HENS complete. CRF in dc packet and sent to [facility]. Patient aware of dc at 4p as well. CN will continue to follow and is available should any further needs arise. - Julisa Del Toro RN 07/04/24 11:25 AM Problem: Pain Goal: Patient goal is pain score less than 4, able to rest, and participant in treatment plan as appropriate Description: INTERVENTIONS: 1. Encourage patient or legal territory service representative to report early pain and ask [...] per policy 9. Teach patient or legal territory service representative interventions for comforting Outcome: Progressing Note: [...] at the bedside 7. Instruct patient/ patient territory service representative about use of safety devices 8. Include patient/ patient territory service representative in decisions related to safety Outcome: [...] hygiene technique. 7. Identify and instruct patient/patient territory service representative in use of appropriate isolation precautions for identified infection/symptoms. 8. Provide and discuss with patient/patient territory service representative on educational MDRO sheet. 9. Encourage and monitor nutritional status daily and consult town manager if indicated. 10. Implement neutropenic guidelines as needed. Outcome: Progressing Note: Evaluation of progress towards goal: Pt is afebrile and will remain free from signs of infection during shift. Labs and PIV insertion site being monitored Problem: Knowledge Deficit Goal: Patient/patient territory service representative demonstrates understanding of disease process, treatment [...] goal: Discharge planning in process. Plan is [facility] Problem: Potential for Compromised Skin Integrity Goal: [...] supplement as ordered 13. Collaborate with clinical town manager 14. Include patient/ patient's territory service representative in decisions related to nutrition Outcome: Progressing Note: Evaluation of progress towards goal: pt is consuming an adequate amt of meals Problem: Moderate - High Risk Fall Score Description: Issa Fall Score of =/> 25 or indicated by [facility] Assessment Goal: Patient should be free from fall Description: Interventions: 1. [place] to environment 2. Hourly rounds addressing the [...] non-skid footwear 11. Teach patient and patient territory service representative to maintain environment for safety and [...] (cane, walker) within reach 19. Request patient territory service representative bring adaptive equipment/mobility aids from home or obtain and provide as needed 20. Consult pharmacy regarding effects of med's affecting mobility, cognition, and alternatives 21. Obtain physician order for PT if risk factors associated with mobility are present 22. Obtain physician order for OT as appropriate 23. Utilize diversional activities 24. Educate patient and patient territory service representative how to maintain a safe environment during visitation times (notify nurse prior to leaving bedside) 25. Consider appropriateness of medical or non-medical sociologist 26. Set up voiding schedule as appropriate [...] transport via PTN confirmed in [facility] to [facility] 07.04.24 at 12:00pm DISCHARGE PLANNING NOTE Prior Auth approved for admission to : [facility]/ [facility], [place], [place] (P# ; F# ) Approval # [id number] Valid for Dates: 07/03/2024-07/09/2024 Problem: Pain Goal: Patient goal is pain score less than 4, able to rest, and participant in treatment plan as appropriate Description: INTERVENTIONS: 1. Encourage patient or legal territory service representative to report early pain and ask [...] per policy 9. Teach patient or legal territory service representative interventions for comforting Outcome: Adequate for [...] at the bedside 7. Instruct patient/ patient territory service representative about use of safety devices 8. Include patient/ patient territory service representative in decisions related to safety Outcome: Adequate for Discharge Note: Evaluation of progress towards goal: Patient safety maintained during shift with use of 5 rights, patient and staff using hygiene, patient environment free of harm and debrie. Will continue to monitor during shift. Problem: Knowledge Deficit Goal: Patient/patient territory service representative demonstrates understanding of disease process, treatment [...] Score of =/> 25 [facility] Goal: Patient should be free from fall Description: Interventions: 1. [place] to environment 2. Hourly rounds addressing the [...] non-skid footwear 11. Teach patient and patient territory service representative to maintain environment for safety and [...] (cane, walker) within reach 19. Request patient territory service representative bring adaptive equipment/mobility aids from home or obtain and provide as needed 20. Consult pharmacy regarding effects of med's affecting mobility, cognition, and alternatives 21. Obtain physician order for PT if risk factors associated with mobility are present 22. Obtain physician order for OT as appropriate 23. Utilize diversional activities 24. Educate patient and patient territory service representative how to maintain a safe environment during visitation times (notify nurse prior to leaving bedside) 25. Consider appropriateness of medical or non-medical sociologist 26. Set up voiding schedule as appropriate [...] patient is without preference. DISCHARGE PLANNING NOTE ADILENE called patient Ashok barroso and left a voicemail asking for a return call. ADILENE informed son in voicemail that Zhou is [...] be started with [facility]. ADILENE tasked [facility] to start auth. - FALLON ASHFORD 07/03/24 3:03 PM SW informed patient of DC tomorrow. ADILENE also called patient son of discharge tomorrow at 4pm. ADILENE tasked [facility] to set up transport. - FALLON ASHFORD 07/03/24 3:53 PM Problem: Pain Goal: Patient goal is pain score less than 4, able to rest, and participant in treatment plan as appropriate Description: INTERVENTIONS: 1. Encourage patient or legal territory service representative to report early pain and ask [...] per policy 9. Teach patient or legal territory service representative interventions for comforting Outcome: Progressing Note: [...] at the bedside 7. Instruct patient/ patient territory service representative about use of safety devices 8. Include patient/ patient territory service representative in decisions related to safety Outcome: [...] hygiene technique. 7. Identify and instruct patient/patient territory service representative in use of appropriate isolation precautions for identified infection/symptoms. 8. Provide and discuss with patient/patient territory service representative on educational MDRO sheet. 9. Encourage and monitor nutritional status daily and consult town manager if indicated. 10. Implement neutropenic guidelines as needed. Outcome: Progressing Note: Evaluation of progress towards goal: patient remains afebrile, will continue to monitor labs Problem: Knowledge Deficit Goal: Patient/patient territory service representative demonstrates understanding of disease process, treatment [...] supplement as ordered 13. Collaborate with clinical town manager 14. Include patient/ patient's territory service representative in decisions related to nutrition Outcome: [...] be free from fall Description: Interventions: 1. [place] to environment 2. Hourly rounds addressing the [...] non-skid footwear 11. Teach patient and patient territory service representative to maintain environment for safety and [...] (cane, walker) within reach 19. Request patient territory service representative bring adaptive equipment/mobility aids from home or obtain and provide as needed 20. Consult pharmacy regarding effects of med's affecting mobility, cognition, and alternatives 21. Obtain physician order for PT if risk factors associated with mobility are present 22. Obtain physician order for OT as appropriate 23. Utilize diversional activities 24. Educate patient and patient territory service representative how to maintain a safe environment during visitation times (notify nurse prior to leaving bedside) 25. Consider appropriateness of medical or non-medical sociologist 26. Set up voiding schedule as appropriate (every 2 hours) Outcome: Progressing Note: Evaluation of progress towards goal: patient remains free from falls Physical Therapy Evaluation Discharge Recommendations PT Recommendations: Care Home Facility SNF/ECF Comments: Recommend SNF as pt [...] 6 Clicks: Basic Mobility Raw Score: 13 [facility] G Code Modifier: CK Therapy Plan Need [...] lithotripsy and stent placed on 06/19/24 at [facility]. Past Medical History: Diagnosis Date Cardiac arrest ([facility]) 02/2024 Coronary artery disease Dementia ([facility]) Fall in home, initial encounter 06/29/2024 Hemorrhoids Hyperlipidemia Hypertension Kidney stone Memory loss Myocardial infarction ([facility]) Urinary tract infection History reviewed. No pertinent [...] ok for PT/OT--OOB. Equipment: gait belt, RW Telemetry/Supervisory Examiner: Yes Oxygen Order : SpO2 90% or [...] Goal: Patient will perform transfers with Modified Gilliam Dates: Start: 07/02/24 Expected End: 07/25/24 Description: Goal Description: Disciplines: PT Physical Therapy Care Plan (Resolved) There are no resolved problems. Principal Problem: Fall in home, initial encounter Occupational Therapy Evaluation Discharge Recommendations OT Recommendations : Care Home Facility SNF/ECF Comments: recommend SNF at discharge [...] little Scoring Daily Activity Raw Score: 13 [facility] G Code Modifier: CL Pt admit 06/29/24 after fall from standing. Pt hypotensive on arrival s/p 3 units of PRBC. Dx: L renal hematoma, hypotension, acute blood loss anemia Urology consulted. Pt with hematuria, maintain jorgensen catheter. Pt with h/o lithotripsy with stent placement at [facility] on 06/19/24 Past Medical History: Diagnosis Date Cardiac arrest ([facility]) 02/2024 Coronary artery disease Dementia ([facility]) Fall in home, initial encounter 06/29/2024 Hemorrhoids Hyperlipidemia Hypertension Kidney stone Memory loss Myocardial infarction ([facility]) Urinary tract infection History reviewed. No pertinent [...] mobility guideline:yes, pass Equipment: gait belt, RW Telemetry/Supervisory Examiner: Yes Oxygen Order : spo2 90% or [...] Description: INTERVENTIONS: 1. Encourage patient or legal territory service representative to report early pain and ask [...] per policy 9. Teach patient or legal territory service representative interventions for comforting Outcome: Progressing Note: [...] at the bedside 7. Instruct patient/ patient territory service representative about use of safety devices 8. Include patient/ patient territory service representative in decisions related to safety Outcome: [...] hygiene technique. 7. Identify and instruct patient/patient territory service representative in use of appropriate isolation precautions for identified infection/symptoms. 8. Provide and discuss with patient/patient territory service representative on educational MDRO sheet. 9. Encourage and monitor nutritional status daily and consult town manager if indicated. 10. Implement neutropenic guidelines as needed. Outcome: Progressing Note: Evaluation of progress towards goal: pt is afebrile and free from s/s of infection. Will continue to monitor Problem: Knowledge Deficit Goal: Patient/patient territory service representative demonstrates understanding of disease process, treatment [...] supplement as ordered 13. Collaborate with clinical town manager 14. Include patient/ patient's territory service representative in decisions related to nutrition Outcome: [...] be free from fall Description: Interventions: 1. [place] to environment 2. Hourly rounds addressing the [...] non-skid footwear 11. Teach patient and patient territory service representative to maintain environment for safety and [...] (cane, walker) within reach 19. Request patient territory service representative bring adaptive equipment/mobility aids from home or obtain and provide as needed 20. Consult pharmacy regarding effects of med's affecting mobility, cognition, and alternatives 21. Obtain physician order for PT if risk factors associated with mobility are present 22. Obtain physician order for OT as appropriate 23. Utilize diversional activities 24. Educate patient and patient territory service representative how to maintain a safe environment during visitation times (notify nurse prior to leaving bedside) 25. Consider appropriateness of medical or non-medical sociologist 26. Set up voiding schedule as appropriate [...] decisions. Called son Ashok. Ashok would like [facility]-he has been there before. Referral sent. - [...] Description: INTERVENTIONS: 1. Encourage patient or legal territory service representative to report early pain and ask [...] per policy 9. Teach patient or legal territory service representative interventions for comforting Outcome: Progressing Note: [...] at the bedside 7. Instruct patient/ patient territory service representative about use of safety devices 8. Include patient/ patient territory service representative in decisions related to safety Outcome: [...] hygiene technique. 7. Identify and instruct patient/patient territory service representative in use of appropriate isolation precautions for identified infection/symptoms. 8. Provide and discuss with patient/patient territory service representative on educational MDRO sheet. 9. Encourage and monitor nutritional status daily and consult town manager if indicated. 10. Implement neutropenic guidelines as needed. Outcome: Progressing Note: Evaluation of progress towards goal: patient remains afebrile, will continue to monitor labs Problem: Knowledge Deficit Goal: Patient/patient territory service representative demonstrates understanding of disease process, treatment [...] Score of =/> 25 or indicated by [facility] Assessment Goal: Patient should be free from fall Description: Interventions: 1. [place] to environment 2. Hourly rounds addressing the [...] non-skid footwear 11. Teach patient and patient territory service representative to maintain environment for safety and [...] (cane, walker) within reach 19. Request patient territory service representative bring adaptive equipment/mobility aids from home or obtain and provide as needed 20. Consult pharmacy regarding effects of med's affecting mobility, cognition, and alternatives 21. Obtain physician order for PT if risk factors associated with mobility are present 22. Obtain physician order for OT as appropriate 23. Utilize diversional activities 24. Educate patient and patient territory service representative how to maintain a safe environment during visitation times (notify nurse prior to leaving bedside) 25. Consider appropriateness of medical or non-medical sociologist 26. Set up voiding schedule as appropriate (every 2 hours) Outcome: Progressing Note: Evaluation of progress towards goal: patient remains free from falls Images from the original note were not included. DISCHARGE PLANNING NOTE Slasher met with patient, introduced self, and explained role. Patient educated on safe discharge plan. Pt admitted 06/29/2024 with Acute blood loss anemia [D62] Fall in home, initial encounter [W19.XXXA, Y92.009] per chart review. Consults: Trauma and Urology Discharge Barriers per Daily Transition Rounds and chart review: PT/OT eval, bilat duplex, oxygen, H&H q12 Past Medical History: Diagnosis Date Cardiac arrest ([facility]) 02/2024 Coronary artery disease Dementia ([facility]) Fall in home, initial encounter 06/29/2024 Hemorrhoids Hyperlipidemia Hypertension Kidney stone Memory loss Myocardial infarction ([facility]) Urinary tract infection Prior to admission patient [...] and has 2 steps into home. PCP: MERE GARCIA, DIRECTOR OF COMMUNICATIONS-PARTNERSHIP MARKETING MANAGER Pharmacy: [facility] PCP and pharmacy confirmed with patient. CN offered to assist with follow up appointment arrangements; patient declines - states will self-schedule follow up appointments son and daughter in law do for him MERE NORIEGA REINALDO GARCIA added to Follow Up Providers for Summary of Care communication. Per patient self-report: Drug use: denies Smoking: denies ETOH Use: denies Current discharge plan is: dc to son and daughter in laws house [place] [facility] [place] Services Requested: Services Requested Patient expects to [...] Description: INTERVENTIONS: 1. Encourage patient or legal territory service representative to report early pain and ask [...] per policy 9. Teach patient or legal territory service representative interventions for comforting Outcome: Progressing Note: [...] at the bedside 7. Instruct patient/ patient territory service representative about use of safety devices 8. Include patient/ patient territory service representative in decisions related to safety Outcome: [...] hygiene technique. 7. Identify and instruct patient/patient territory service representative in use of appropriate isolation precautions for identified infection/symptoms. 8. Provide and discuss with patient/patient territory service representative on educational MDRO sheet. 9. Encourage and monitor nutritional status daily and consult town manager if indicated. 10. Implement neutropenic guidelines as needed. Outcome: Progressing Note: Evaluation of progress towards goal: Problem: Knowledge Deficit Goal: Patient/patient territory service representative demonstrates understanding of disease process, treatment [...] supplement as ordered 13. Collaborate with clinical town manager 14. Include patient/ patient's territory service representative in decisions related to nutrition Outcome: [...] Score of =/> 25 or indicated by [facility] Assessment Goal: Patient should be free from fall Description: Interventions: 1. [place] to environment 2. Hourly rounds addressing the [...] non-skid footwear 11. Teach patient and patient territory service representative to maintain environment for safety and [...] (cane, walker) within reach 19. Request patient territory service representative bring adaptive equipment/mobility aids from home or obtain and provide as needed 20. Consult pharmacy regarding effects of med's affecting mobility, cognition, and alternatives 21. Obtain physician order for PT if risk factors associated with mobility are present 22. Obtain physician order for OT as appropriate 23. Utilize diversional activities 24. Educate patient and patient territory service representative how to maintain a safe environment during visitation times (notify nurse prior to leaving bedside) 25. Consider appropriateness of medical or non-medical sociologist 26. Set up voiding schedule as appropriate [...] Description: INTERVENTIONS: 1. Encourage patient or legal territory service representative to report early pain and ask [...] per policy 9. Teach patient or legal territory service representative interventions for comforting Outcome: Progressing Note: [...] at the bedside 7. Instruct patient/ patient territory service representative about use of safety devices 8. Include patient/ patient territory service representative in decisions related to safety Outcome: [...] Description: INTERVENTIONS: 1. Encourage patient or legal territory service representative to report early pain and ask [...] per policy 9. Teach patient or legal territory service representative interventions for comforting Outcome: Progressing Note: [...] at the bedside 7. Instruct patient/ patient territory service representative about use of safety devices 8. Include patient/ patient territory service representative in decisions related to safety Outcome: [...] Limitations: Strict bedrest documented in this encounter [facility] 07-04-2024 History of Present illness Narrative [facility] Department of Pharmacy Pharmacy-Physician Communication Pt name: Justus Loyola Room: A221/[address] Ru Schwarz MD, Justus Loyola is a 78 y.o. male who [...] at the same dose and frequency per [facility] approved policy. Thank you. If we can offer more assistance, please feel free to call us at [phone]. Ismael Flores RPH Images from the original note were not included. Sonido Trinidad Jr., M.D., Caden Friedman M.D., Mookie Frey M.D., Debra Kerr M.D., Susana Almeida M.D, Alfred Valenzuela M.D., Tom Pratt M.D., Fredis Villarreal M.D., Javier Montes M.D. Urology Progress Note Patient: Justus Loyola Date of : 1945 INTERVAL HISTORY: [...] Procedure Component Value Units Date/Time Urine culture [[id number]] Collected: 06/29/24 0206 Specimen: Urine from Jorgensen Catheter Specimen Updated: 06/30/24 0722 Specimen Notes URINE RECEIVED WITHOUT PRESERVATIVE Culture NO GROWTH AT <1000 CFU/mL Urine culture [[id number]] Collected: 06/28/24 2101 Specimen: Urine from Jorgensen Catheter Specimen Updated: 06/30/24 0908 Culture NO GROWTH AT <1000 CFU/mL Blood culture, peripheral #1 [[id number]] Collected: 06/28/24 191 Specimen: Blood Updated: 07/02/24 2230 Specimen Notes PENDING Culture NO GROWTH 4 DAYS Blood culture, peripheral #2 [[id number]] Collected: 02/1900 Specimen: Blood Updated: 07/02/242230 Specimen Notes PENDING Culture NO GROWTH 4 DAYS SARS/FLU A+B/RSV by NAAT/Molecular (M4RT Collection Tube) [[id number]] Collected: 06/28/241809 Specimen: Nasopharynx Updated: 06/28/241946 FLU A PCR Negative FLU B PCR Negative RSV by PCR Negative SARS CoV 2 BY PCR Not Detected Physical Exam: This a 78 y.o. patient Patient Vitals for the past 24 hrs: BP Temp Temp src Pulse Resp SpO2 Weight 07/03/24 0436 -- -- -- -- -- -- 98.5 kg (217 lb 2.5 oz) 07/03/24 0422 122/71 36.7 C (98.1 F) Oral 63 23 99 % -- 07/02/24 2322 108/62 36.5 C (97.7 F) Oral 60 (!) 26 99 % -- 07/02/24 1920 135/61 36.8 C (98.3 F) Oral 63 [...] non-distended, no signs of peritonitis Lines/drains: 16 [place]ar[place]uan Jorgensen catheter in place with light brown [...] 07/01/24 0607 07/01/24 0215 06/30/24 0400 06/30/24 021 POTASSIUM mmol/L -- -- 4.1 -- 4.2 [...] hematuria. TRAUMA SURGERY - PROGRESS NOTE Patient: Justus Loyola Date of : 1945 AGE 78 y.o. SEX male Assessment / Plan Justus Loyola 78 y.o. male Mechanism: Fall Injuries/Traumatic issues: Left Renal Hematoma - recent lithotripsy and stent placement at [facility] -Consult to Urology - serial hgb, trend [...] 07/03 Comorbidities/Medical issues: Neuro- Pulm- Cardio- CAD, AK, HTN, Afib on Eliquis GI- -CKD, nephrolithiasis [...] 50 % in water (D50W) flu vacc [id number] 6mos up(PF) glucagon (human recombinant) ipratropium-albuteroL magnesium [...] mL/hr Soraida Mcgovern PA-C Trauma Services Pager: [phone] 11:16 AM 07/03/24 Soraida Mcgovern PA-C 07/03/24 1116 Images from the original note were not included. FOLLOW-UP: Post-Intensive Care Rounding Note Patient: Justus Loyola : 1945 Age: 78 y.o. Length [...] Thank you, Bernarda Dennis RN Rapid Response: [facility] TRAUMA SURGERY - PROGRESS NOTE Patient: Justus Loyola Date of : 1945 AGE 78 y.o. SEX male Assessment / Plan Justus Loyola 78 y.o. male Mechanism: Fall Injuries/Traumatic issues: Left Renal Hematoma - recent lithotripsy and stent placement at [facility] -Consult to Urology - serial hgb, trend [...] closely Comorbidities/Medical issues: Neuro- Pulm- Cardio- CAD, AK, HTN, Afib on Eliquis GI- -CKD, nephrolithiasis [...] 0400 06/30/24 0210 06/29/24 0601 06/29/24 0440 06/29/24136 SODIUM mmol/L 142 -- -- -- -- [...] 7 days Lab Units 06/29/24 0137 06/28/24 23106/28/24 1901 INR 1.6* 1.7* 3.1* PROTIME sec [...] % in water (D50W) fentaNYL flu vacc [id number] 6mos up(PF) glucagon (human recombinant) ipratropium-albuteroL magnesium [...] can be reached via Patient Touch Pager: [phone] MARIA A Klein 07/02/24 1013 Images from the original note were not included. FOLLOW-UP: Post-Intensive Care Rounding Note Patient: Justus Loyola : 1945 Age: 78 y.o. Length [...] Thank you, AYSE RAYO RN Rapid Response: [facility] Images from the original note were not included. Sonido Trinidad Jr., M.D., Caden Friedman M.D., Mookie Frey M.D., Debra Kerr M.D., Susana Almeida M.D, Alfred Valenzuela M.D., Tom Pratt M.D., Fredis Villarreal M.D., Javier Montes M.D. Urology Progress Note Patient: Justus Loyola Date of : 1945 INTERVAL HISTORY: [...] Procedure Component Value Units Date/Time Urine culture [[id number]] Collected: 06/29/24 0206 Specimen: Urine from Jorgensen Catheter Specimen Updated: 06/30/24 0722 Specimen Notes URINE RECEIVED WITHOUT PRESERVATIVE Culture NO GROWTH AT <1000 CFU/mL Urine culture [[id number]] Collected: 06/28/24 210 Specimen: Urine from Jorgensen Catheter Specimen Updated: 06/30/24 0908 Culture NO GROWTH AT <1000 CFU/mL Blood culture, peripheral #1 [[id number]] Collected: 06/28/241909 Specimen: Blood Updated: 07/01/242229 Specimen Notes PENDING Culture NO GROWTH 3 DAYS Blood culture, peripheral #2 [[id number]] Collected: 06/28/241900 Specimen: Blood Updated: 07/01/242230 Specimen Notes PENDING Culture NO GROWTH 3 DAYS SARS/FLU A+B/RSV by NAAT/Molecular (M4RT Collection Tube) [[id number]] Collected: 06/28/241809 Specimen: Nasopharynx Updated: 06/28/241946 FLU [...] -- 61 24 96 % -- 07/01/24 09 -- -- -- 64 (!) 28 97 % -- 07/01/24 0809 -- -- -- 60 25 96 % -- 07/01/24 08 -- -- -- 66 (!) 31 96 [...] non-distended, no signs of peritonitis Lines/drains: 16 [place]araguan Jorgensen catheter in place with light brown [...] included. FOLLOW-UP: Post-Intensive Care Rounding Note Patient: Justus Loyola : 1945 Age: 78 y.o. Length [...] Thank you, Bernarda Dennis RN Rapid Response: [facility] Images from the original note were not included. Sonido Trinidad Jr., M.D., Caden Friedman M.D., Mookie Frey M.D., Debra Kerr M.D., Susana Almieda M.D, Alfred Valenzuela M.D., Tom Pratt M.D., Fredis Villarreal M.D., Javier Montes M.D. Urology Progress Note Patient: Justus Loyola Date of : 1945 INTERVAL HISTORY: [...] Procedure Component Value Units Date/Time Urine culture [[id number]] Collected: 06/29/24 0206 Specimen: Urine from Jorgensen Catheter Specimen Updated: 06/30/24 0722 Specimen Notes URINE RECEIVED WITHOUT PRESERVATIVE Culture NO GROWTH AT <1000 CFU/mL Urine culture [[id number]] Collected: 06/28/24 210 Specimen: Urine from Jorgensen Catheter Specimen Updated: 06/30/24 0908 Culture NO GROWTH AT <1000 CFU/mL Blood culture, peripheral #1 [[id number]] Collected: 06/28/24 191 Specimen: Blood Updated: 06/30/242229 Specimen Notes PENDING Culture NO GROWTH 2 DAYS Blood culture, peripheral #2 [[id number]] Collected: 06/28/24 190 Specimen: Blood Updated: 06/30/242230 Specimen Notes PENDING Culture NO GROWTH 2 DAYS SARS/FLU A+B/RSV by NAAT/Molecular (M4RT Collection Tube) [[id number]] Collected: 06/28/24 181 Specimen: Nasopharynx Updated: 06/28/241946 [...] -- 65 (!) 27 97 % -- 06/30/24 2000 -- -- 65 (!) 30 95 % [...] non-distended, no signs of peritonitis Lines/drains: 16 Nicaraguan Jorgensen catheter in place with a violeta [...] Hold all anticoagulation Will discuss resuming home varsha tomorrow Urology will continue to follow closely [...] time. TRAUMA SURGERY - PROGRESS NOTE Patient: Justus Loyola Date of : 1945 AGE 78 [...] % in water (D50W) fentaNYL flu vacc [id number] 6mos up(PF) glucagon (human recombinant) ipratropium-albuteroL magnesium [...] Date of 1945 Hospital Day: 2 day(s) Justus Loyola is a 78 y.o. male who presented to [facility] ED via EMS as a Level 2 [...] hypotension and symptomatic anemia overnight from the 15th to 16th. Hemoglobin responded appropriately. Maintenance fluids were switched [...] 3 days Lab Units 07/01/24 0215 06/30/24 0210 06/29/24 0440 06/29/24 0137 06/28/24 1901 BUN mg/dL 16 20 17 16 20 CREATININE mg/dL 1.24 1.39* 1.57* 1.46* 1.90* POTASSIUM mmol/L 3.7 4.2 3.7 3.6 3.8 CO2 mmol/L 25 22 23 21* 23 CHLORIDE mmol/L 111* [...] 3 days Lab Units 07/01/24 0215 06/30/24 1242 [...] Procedure Component Value Units Date/Time Urine culture [[id number]] Collected: 06/29/24205 Specimen: Urine from Jorgensen Catheter Specimen Updated: 06/30/24721 Specimen Notes URINE RECEIVED WITHOUT PRESERVATIVE Culture NO GROWTH AT <1000 CFU/mL Urine culture [[id number]] Collected: 06/28/242100 Specimen: Urine from Jorgensen Catheter Specimen Updated: 06/30/24 0908 Culture NO GROWTH AT <1000 CFU/mL Blood culture, peripheral #1 [[id number]] Collected: 06/28/241909 Specimen: Blood Updated: 06/30/242229 Specimen Notes PENDING Culture NO GROWTH 2 DAYS Blood culture, peripheral #2 [[id number]] Collected: 06/28/241900 Specimen: Blood Updated: 06/30/242230 Specimen Notes PENDING Culture NO GROWTH 2 DAYS SARS/FLU A+B/RSV by NAAT/Molecular (M4RT Collection Tube) [[id number]] Collected: 06/28/241809 Specimen: Nasopharynx Updated: 06/28/241946 FLU [...] Left Antecubital (Active) Line Status Infusing;Connections checked/tightened 07/01/24299 Site Assessment Clean;Dry;Intact 07/01/24299 Dressing Type Occlusive;Transparent 07/01/24299 Dressing Status Clean;Dry;Intact 07/01/24299 Dressing Intervention Initial dressing 06/28/241999 Dressing Change [...] Bloody 07/01/24 030 Urine Appearance Cloudy 07/01/24 030 Output (mL) 145 mL 07/01/24 0600 Arterial Line 06/29/24 Left Radial (Active) Line Status Infusing;Pulsatile blood flow 07/01/24 030 Line Interventions Leveled;Connections checked and tightened;Pressure bag maintained;Armboard;Flushed per protocol 07/01/24 0434 Waveform Appropriate;Square wave test performed 07/01/24 0434 Site Assessment Clean;Dry;Intact 07/01/24 030 Dressing Type Occlusive;Transparent 07/01/24 030 Dressing Status Clean;Dry;Intact 07/01/24 030 Dressing Intervention Dressing changed 06/29/24 0548 Color/Movement/Sensation Capillary refill less than 3 sec 07/01/24 030 Patient Tolerance of Line Care Tolerated well 07/01/24 030 Line Necessity Invasive hemodynamic monitoring 07/01/24 030 Line Necessity Reviewed With cc 07/01/24 030 Dressing Change Due (Non-Gauze) 07/06/24 06/29/24 0548 ACTIVE PROBLEM LIST: Fall from standing Left renal hematoma Hypotension Acute blood loss anemia Eliquis coagulopathy status post reversal with Kcentra CKD ASSESSMENT/PLAN: Justus Loyola is a 78 y.o. male /p [...] BID, Lipitor PMH: CAD, hypertension, hyperlipidemia, previous AK, Afib, pacemaker ECHO in 2023 demonstrating EF [...] failure with hypoxia Wilberto Loomis MD, FACS [facility] General Surgeons Minimally Invasive Robotic Surgery Surgical Critical Care Trauma Office: [phone] Please feel free to call with questions at anytime. TRAUMA SURGERY - PROGRESS NOTE Patient: Justus Loyola Date of : 1945 AGE 78 [...] 06/30/24 0210 06/30/24 0020 06/29/24 1804 06/29/24 0606/29/2443906/29/2413606/28/24 190 SODIUM mmol/L -- -- 142 -- -- [...] from last 7 days Lab Units 06/29/2413606/28/24 2313 06/28/24 1901 INR 1.6* 1.7* 3.1* [...] % in water (D50W) fentaNYL flu vacc [id number] 6mos up(PF) glucagon (human recombinant) ipratropium-albuteroL magnesium [...] water, 100 mL/hr, Last Rate: 100 mL/hr (06/30/2446) dextrose 5 % in water, 50 mL/hr sodium chloride 0.9 %, 20 mL/hr sodium chloride 0.9 %, 20 mL/hr sodium chloride 0.9 %, 3 mL/hr, Last Rate: 3 mL/hr (06/30/2446) REINALDO Santillan 06/30/24813 Images from the original note were not included. Sonido Trinidad Jr., M.D., Caden Friedman M.D., Mookie Frey M.D., Debra Kerr M.D., Susana Almeida M.D, Alfred Valenzuela M.D., Tom Pratt M.D., Fredis Villarreal M.D., Javier Montes M.D. Urology Progress Note Patient: Justus Loyola Date of : 1945 INTERVAL HISTORY: [...] -- 70 25 98 % -- -- 06/29/241909 -- -- -- 75 (!) 26 97 % -- -- 06/29/24 190 -- 36.6 C (97.8 F) Oral 72 [...] non-distended, no signs of peritonitis Lines/drains: 16 [place]araguan Jorgensen catheter in place with a [place] red urine, draining well. No clots present [...] Date of 1945 Hospital Day: 1 day(s) Justus Loyola is a 78 y.o. male who presented to [facility] ED via EMS as a Level 2 [...] from last 3 days Lab Units 06/30/24 02106/29/24 0440 06/29/24 0137 06/28/24 1901 BUN [...] 06/29/24 1410 06/29/24 0845 06/29/24 0440 06/29/24 01306/28/24 2115 06/28/24 1901 WBC X10E9/L 10.1 -- [...] Procedure Component Value Units Date/Time Urine culture [[id number]] Resulted: 06/29/24319 Specimen: Urine Updated: 06/29/24 0331 Urine culture [[id number]] Collected: 06/28/24 2100 Specimen: Urine Updated: 06/29/24 1454 Blood culture, peripheral #1 [[id number]] Collected: 06/28/24 191 Specimen: Blood Updated: 06/29/242229 Specimen Notes PENDING Culture NO GROWTH 1 DAY Blood culture, peripheral #2 [[id number]] Collected: 06/28/241900 Specimen: Blood Updated: 06/29/242230 Specimen Notes PENDING Culture NO GROWTH 1 DAY SARS/FLU A+B/RSV by NAAT/Molecular (M4RT Collection Tube) [[id number]] Collected: 06/28/241809 Specimen: Nasopharynx Updated: 06/28/241946 FLU [...] analysis 06/28/241804 Amount Drawn (mL) 10 mL 06/28/24 180 Peripheral IV 06/28/24 Left Antecubital (Active) Line Status Blood return noted;Flushed;Infusing;Connections checked/tightened 06/29/24 0320 Site Assessment Clean;Dry;Intact 06/29/24 0320 Dressing Type Occlusive;Transparent 06/29/24 0320 Dressing Status Clean;Dry;Intact 06/29/24 0320 Dressing Intervention Initial dressing 06/28/241999 Dressing Change Due (Non-Gauze) 07/05/24 06/28/241999 Urinary Catheter 06/28/24 Single lumen (Active) Catheter Status Patent 06/29/24 032 Site Assessment Clean;Skin intact;Bleeding 06/29/24 0320 Collection Container Standard drainage bag/container 06/29/24 0320 Securement Method Securing device (Describe) 06/29/24 0320 Tamper Evident Seal Intact No 06/29/24 0400 [...] status post reversal with Kcentra CKD ASSESSMENT/PLAN: Justus Loyola is a 78 y.o. male s/p [...] BID, Lipitor PMH: CAD, hypertension, hyperlipidemia, previous AK, Afib, pacemaker ECHO in 2023 demonstrating EF [...] today = 34 minutes. 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 And expected for one kidney Did get RBC again this morning. No trali suspected yet. CT reviewed. Left kidey is shattered. Might need nephrectomy. I and O +2.6L/24 hours and +2.1L/ HS Wilberto Loomis MD, [facility] General Surgeons Minimally Invasive Robotic Surgery Surgical Critical Care Trauma Office: [phone] Please feel free to call with questions at anytime. SICU Academic Critical Care PROGRESS NOTE Admission Date: 06/29/2024 1:19 AM Attending Physician: Ru Schwarz MD Date of 1945 Hospital Day: 0 day(s) Justus Loyola is a 78 y.o. male who presented to [facility] ED via EMS as a Level 2 [...] Results from last 3 days Lab Units 06/29/2443906/29/2413606/28/24211406/28/24 190 WBC X10E9/L 11.7* 10.6 -- 13.8* HEMOGLOBIN [...] Procedure Component Value Units Date/Time Urine culture [[id number]] Resulted: 06/29/24 0320 Specimen: Urine Updated: 06/29/24 033 Blood culture, peripheral #2 [[id number]] Collected: 06/28/241906 Specimen: Blood, Peripheral Draw Updated: 06/28/241913 Blood culture, peripheral #1 [[id number]] Collected: 06/28/241858 Specimen: Blood, Peripheral Draw Updated: 06/28/241913 SARS/FLU A+B/RSV by NAAT/Molecular (M4RT Collection Tube) [[id number]] Collected: 06/28/24 181 Specimen: Nasopharynx Updated: 06/28/241946 [...] blood return;Saline locked;Flushed;Alcohol sponge cap changed;Connections checked/tightened 06/29/24 032 Site Assessment Clean;Dry;Intact 06/29/24 032 Dressing Type Occlusive;Transparent 06/29/24319 Dressing Status Clean;Dry;Intact 06/29/24319 Specimen Obtained Yes 06/28/241804 Specimen Status Sent for analysis 06/28/241804 Amount Drawn (mL) 10 mL 06/28/24 180 Peripheral IV 06/28/24 Left Antecubital (Active) Line Status Blood return noted;Flushed;Infusing;Connections checked/tightened 06/29/24 032 Site Assessment Clean;Dry;Intact 06/29/24 032 Dressing Type Occlusive;Transparent 06/29/24 032 Dressing Status Clean;Dry;Intact 06/29/24 032 Dressing Intervention Initial dressing 06/28/241999 Dressing Change Due (Non-Gauze) 07/05/24 06/28/241999 Urinary Catheter 06/28/24 Single lumen (Active) Catheter Status Patent 06/29/24 032 Site Assessment Clean;Skin intact;Bleeding 06/29/24 032 Collection Container Standard drainage bag/container 06/29/24 0320 Securement Method Securing device (Describe) 06/29/24 0320 Tamper Evident Seal Intact No 06/29/24 0400 [...] Clean;Dry;Intact 06/29/24 0548 Dressing Intervention Dressing changed 06/29/2448 Color/Movement/Sensation Capillary refill less than 3 sec 06/29/24547 Dressing Change Due (Non-Gauze) 07/06/24 06/29/24 0548 ACTIVE PROBLEM LIST: Fall from standing Left renal hematoma Hypotension Acute blood loss anemia Eliquis coagulopathy status post reversal with Kcentra CKD ASSESSMENT/PLAN: Justus Loyola is a 78 y.o. male s/p [...] Meds: None PMH: CAD, hypertension, hyperlipidemia, previous AK, AFib Home meds: Eliquis, Plavix 4. GI [...] today = 34 minutes. Diagnoses: Atrial fibrillation group home anticoagulation use Renal laceration Acute blood loss anemia Acute on chronic kidney disease Plan: Got Kcentra, needs Creatinine up but might have also chronic kidney disease. BNP elevated. Last unit RBC was this morning. Will watch for continued bleeding. CT reviewed. Left kidey is shattered. Might need nephrectomy. Wilberto Loomis MD, FACS [facility] General Surgeons Minimally Invasive Robotic Surgery Surgical Critical Care Trauma Office: [phone] Please feel free to call with questions at anytime. documented in this encounter [facility] 07-04-2024 Hospital course Narrative [facility] TRAUMA SURGERY-DISCHARGE SUMMARY DISCHARGE NOTE / SUMMARY Patient ID: Justus Loyola : 1945 Acct: [id number] Patient's PCP: MERE GARCIA APRN-LIONEL Admit Date: 06/29/2024 Discharge Date: 07/04/2024 Admitting Physician: Ru Schwarz MD Consults: Urology and SICU Discharge Diagnoses/Chief Complaint: fall Primary Problem Fall in home, initial encounter Patient Active Problem List Diagnosis Date Noted Fall in home, initial encounter 06/29/2024 Past Medical History: Diagnosis Date Cardiac arrest ([facility]) 02/2024 Coronary artery disease Dementia ([facility]) Fall in home, initial encounter 06/29/2024 Hemorrhoids Hyperlipidemia Hypertension Kidney stone Memory loss Myocardial infarction ([facility]) Urinary tract infection HOSPITAL COURSE SUMMARY: Justus Loyola is an 78 y.o. White or male presented to [facility] ED via EMS as a level 2 [...] - recent lithotripsy and stent placement at [facility] -Consult to Urology - serial hgb, trend [...] Follow Up: No future appointments. Follow-up Information REINALDO CHAKRABORTY. Go on 07/08/2024. Specialty: Family Medicine Why: 3:00 pm Contact information: [facility] [id number] Kelvin Langston MD Follow up. Specialty: Urology Why: Follow up for management of kidney stones Contact information: [address] [place], [place] [address] Dept of Urology [facility] [phone] Scheduled Appointments YOUR SCHEDULED APPOINTMENTS Please make note of this in your schedule as to not miss or call to reschedule. Thank you! REINALDO CHAKRABORTY PCP - General Family Medicine phone [phone] fax [phone] [place] [phone] Next Steps: Go on 07/08/2024 Instructions: 3:00 [...] For NEW patients, MD will not prescribe [facility] pain medication. Time spent: 45 minutes SORAIDA MCGOVERN PA-C 07/04/24 12:17 PM Soraida Mcgovern PA-C 07/04/24 1218 documented in this encounter [facility] 07-04-2024 Progress note Formatting of t his note might be different from the original. DISCHARGE PLANNING NOTE Case discussed in daily transition rounds and chart reviewed by CN. Barriers to discharge include no medical barriers Discharge Plan remains: [facility] aware of dc order today-transport ambulette pickle pumper time is 4pm. HENS complete. CRF in dc packet and sent to [facility]. Patient aware of dc at 4p as well. CN will continue to follow and is available should any further needs arise. - Julisa Del Toro RN 07/04/24 11:25 AM [facility] 07-04-2024 Plan of care note Problem: Pain Goal: Patient goal is pain score less than 4, able to rest, and participant in treatment plan as appropriate Description: INTERVENTIONS: 1. Encourage patient or legal territory service representative to report early pain and ask [...] per policy 9. Teach patient or legal territory service representative interventions for comforting Outcome: Progressing Note: [...] at the bedside 7. Instruct patient/ patient territory service representative about use of safety devices 8. Include patient/ patient territory service representative in decisions related to safety Outcome: [...] hygiene technique. 7. Identify and instruct patient/patient territory service representative in use of appropriate isolation precautions for identified infection/symptoms. 8. Provide and discuss with patient/patient territory service representative on educational MDRO sheet. 9. Encourage and monitor nutritional status daily and consult town manager if indicated. 10. Implement neutropenic guidelines as needed. Outcome: Progressing Note: Evaluation of progress towards goal: Pt is afebrile and will remain free from signs of infection during shift. Labs and PIV insertion site being monitored Problem: Knowledge Deficit Goal: Patient/patient territory service representative demonstrates understanding of disease process, treatment [...] goal: Discharge planning in process. Plan is [facility] Problem: Potential for Compromised Skin Integrity Goal: [...] supplement as ordered 13. Collaborate with clinical town manager 14. Include patient/ patient's territory service representative in decisions related to nutrition Outcome: Progressing Note: Evaluation of progress towards goal: pt is consuming an adequate amt of meals Problem: Moderate - High Risk Fall Score Description: Issa Fall Score of =/> 25 or indicated by [facility] Assessment Goal: Patient should be free from fall Description: Interventions: 1. [place] to environment 2. Hourly rounds addressing the [...] non-skid footwear 11. Teach patient and patient territory service representative to maintain environment for safety and [...] (cane, walker) within reach 19. Request patient territory service representative bring adaptive equipment/mobility aids from home or obtain and provide as needed 20. Consult pharmacy regarding effects of med's affecting mobility, cognition, and alternatives 21. Obtain physician order for PT if risk factors associated with mobility are present 22. Obtain physician order for OT as appropriate 23. Utilize diversional activities 24. Educate patient and patient territory service representative how to maintain a safe environment during visitation times (notify nurse prior to leaving bedside) 25. Consider appropriateness of medical or non-medical sociologist 26. Set up voiding schedule as appropriate (every 2 hours) Outcome: Progressing Note: Evaluation of progress towards goal: Pt will remain free from falls during shift. Call light in reach, bed in lowest position, bed and chair wheels locked, 2/4 side rails up, nonslip socks on, overbed table and personal belongings within reach, hourly rounding being completed, RN next to pt's room [facility] [employer] [facility] 07-03-2024 Progress note Formatting of t his note might be different from the original. DISCHARGE PLANNING NOTE 4:30pm Rescheduled to 4pm 07.04.24 per SW request. [facility] transport via PTN confirmed in [facility] to [place] 07.04[facility] 07-03-2024 Progress note Formatting of t his note might be different from the original. DISCHARGE PLANNING NOTE Prior Auth approved for admission to : [facility]/ [facility], [place], [place] (P# ; F# ) Approval # [id number] Valid for Dates: 07/03/2024-07/09/2024 [facility] [employer] [facility] 07-03-2024 Plan of care note Problem: Pain Goal: Patient goal is pain score less than 4, able to rest, and participant in treatment plan as appropriate Description: INTERVENTIONS: 1. Encourage patient or legal territory service representative to report early pain and ask [...] per policy 9. Teach patient or legal territory service representative interventions for comforting Outcome: Adequate for [...] at the bedside 7. Instruct patient/ patient territory service representative about use of safety devices 8. Include patient/ patient territory service representative in decisions related to safety Outcome: Adequate for Discharge Note: Evaluation of progress towards goal: Patient safety maintained during shift with use of 5 rights, patient and staff using hygiene, patient environment free of harm and debrie. Will continue to monitor during shift. Problem: Knowledge Deficit Goal: Patient/patient territory service representative demonstrates understanding of disease process, treatment [...] be free from fall Description: Interventions: 1. [place] to environment 2. Hourly rounds addressing the [...] non-skid footwear 11. Teach patient and patient territory service representative to maintain environment for safety and [...] (cane, walker) within reach 19. Request patient territory service representative bring adaptive equipment/mobility aids from home or obtain and provide as needed 20. Consult pharmacy regarding effects of med's affecting mobility, cognition, and alternatives 21. Obtain physician order for PT if risk factors associated with mobility are present 22. Obtain physician order for OT as appropriate 23. Utilize diversional activities 24. Educate patient and patient territory service representative how to maintain a safe environment during visitation times (notify nurse prior to leaving bedside) 25. Consider appropriateness of medical or non-medical sociologist 26. Set up voiding schedule as appropriate [...] shift. Will continue to monitor during shift. [employer] 07-03-2024 Progress note Formatting of t his note might be different from the original. DISCHARGE PLANNING NOTE Referral sent to multiple facilities or agencies due to patient is without preference. [employer] 07-03-2024 Progress note Formatting of t his note might be different from the original. DISCHARGE PLANNING NOTE SW called patient Ashok barroso and left a voicemail asking for a return call. ADILENE informed son in voicemail that [facility] unable to accept due to no [...] be started with [facility]. ADILENE tasked [facility] to start auth. - [place] 07/03/24 3:03 PM SW informed patient of DC tomorrow. ADILENE also called patient son of discharge tomorrow at 4pm. ADILENE tasked [facility] to set up transport. - [place] 07/03/24 3:53 PM [facility] 07-02-2024 Plan of care note Problem: Pain Goal: Patient goal is pain score less than 4, able to rest, and participant in treatment plan as appropriate Description: INTERVENTIONS: 1. Encourage patient or legal territory service representative to report early pain and ask [...] per policy 9. Teach patient or legal territory service representative interventions for comforting Outcome: Progressing Note: [...] at the bedside 7. Instruct patient/ patient territory service representative about use of safety devices 8. Include patient/ patient territory service representative in decisions related to safety Outcome: [...] hygiene technique. 7. Identify and instruct patient/patient territory service representative in use of appropriate isolation precautions for identified infection/symptoms. 8. Provide and discuss with patient/patient territory service representative on educational MDRO sheet. 9. Encourage and monitor nutritional status daily and consult town manager if indicated. 10. Implement neutropenic guidelines as needed. Outcome: Progressing Note: Evaluation of progress towards goal: patient remains afebrile, will continue to monitor labs Problem: Knowledge Deficit Goal: Patient/patient territory service representative demonstrates understanding of disease process, treatment [...] supplement as ordered 13. Collaborate with clinical town manager 14. Include patient/ patient's territory service representative in decisions related to nutrition Outcome: [...] be free from fall Description: Interventions: 1. [place] to environment 2. Hourly rounds addressing the [...] non-skid footwear 11. Teach patient and patient territory service representative to maintain environment for safety and [...] (cane, walker) within reach 19. Request patient territory service representative bring adaptive equipment/mobility aids from home or obtain and provide as needed 20. Consult pharmacy regarding effects of med's affecting mobility, cognition, and alternatives 21. Obtain physician order for PT if risk factors associated with mobility are present 22. Obtain physician order for OT as appropriate 23. Utilize diversional activities 24. Educate patient and patient territory service representative how to maintain a safe environment during visitation times (notify nurse prior to leaving bedside) 25. Consider appropriateness of medical or non-medical sociologist 26. Set up voiding schedule as appropriate (every 2 hours) Outcome: Progressing Note: Evaluation of progress towards goal: patient remains free from falls [facility] [employer] 07-02-2024 Progress note Formatting of t his note is different from the original. Physical Therapy Evaluation Discharge Recommendations PT Recommendations: Care Home Facility SNF/ECF Comments: Recommend SNF as pt [...] 6 Clicks: Basic Mobility Raw Score: 13 CMS G Code Modifier: CK Therapy Plan Need [...] lithotripsy and stent placed on 06/19/24 at [facility]. Past Medical History: Diagnosis Date Cardiac arrest ([facility]) 02/2024 Coronary artery disease Dementia ([facility]) Fall in home, initial encounter 06/29/2024 Hemorrhoids Hyperlipidemia Hypertension Kidney stone Memory loss Myocardial infarction ([facility]) Urinary tract infection History reviewed. No pertinent [...] ok for PT/OT--OOB. Equipment: gait belt, RW Telemetry/Supervisory Examiner: Yes Oxygen Order : SpO2 90% or [...] Goal: Patient will perform transfers with Modified Gilli[place] Dates: Start: 07/02/24 Expected End: 07/25/24 Description: Goal Description: Disciplines: PT Physical Therapy Care Plan (Resolved) There are no resolved problems. Principal Problem: Fall in home, initial encounter [facility] [employer] [facility] 07-02-2024 Progress note Formatting of t his note is different from the original. Occupational Therapy Evaluation Discharge Recommendations OT Recommendations : Care Home Facility SNF/ECF Comments: recommend SNF at discharge [...] with h/o lithotripsy with stent placement at [facility] on 06/19/24 Past Medical History: Diagnosis Date Cardiac arrest ([facility]) 02/2024 Coronary artery disease Dementia ([facility]) Fall in home, initial encounter 06/29/2024 Hemorrhoids Hyperlipidemia Hypertension Kidney stone Memory loss Myocardial infarction ([facility]) Urinary tract infection History reviewed. No pertinent [...] mobility guideline:yes, pass Equipment: gait belt, RW Telemetry/Supervisory Examiner: Yes Oxygen Order : spo2 90% or [...] Principal Problem: Fall in home, initial encounter [facility] 07-02-2024 Plan of care note Problem: Pain Goal: Patient goal is pain score less than 4, able to rest, and participant in treatment plan as appropriate Description: INTERVENTIONS: 1. Encourage patient or legal territory service representative to report early pain and ask [...] per policy 9. Teach patient or legal territory service representative interventions for comforting Outcome: Progressing Note: [...] at the bedside 7. Instruct patient/ patient territory service representative about use of safety devices 8. Include patient/ patient territory service representative in decisions related to safety Outcome: [...] hygiene technique. 7. Identify and instruct patient/patient territory service representative in use of appropriate isolation precautions for identified infection/symptoms. 8. Provide and discuss with patient/patient territory service representative on educational MDRO sheet. 9. Encourage and monitor nutritional status daily and consult town manager if indicated. 10. Implement neutropenic guidelines as needed. Outcome: Progressing Note: Evaluation of progress towards goal: pt is afebrile and free from s/s of infection. Will continue to monitor Problem: Knowledge Deficit Goal: Patient/patient territory service representative demonstrates understanding of disease process, treatment [...] supplement as ordered 13. Collaborate with clinical town manager 14. Include patient/ patient's territory service representative in decisions related to nutrition Outcome: [...] Score of =/> 25 or indicated by [facility] Assessment Goal: Patient should be free from fall Description: Interventions: 1. [place] to environment 2. Hourly rounds addressing the [...] non-skid footwear 11. Teach patient and patient territory service representative to maintain environment for safety and [...] (cane, walker) within reach 19. Request patient territory service representative bring adaptive equipment/mobility aids from home or obtain and provide as needed 20. Consult pharmacy regarding effects of med's affecting mobility, cognition, and alternatives 21. Obtain physician order for PT if risk factors associated with mobility are present 22. Obtain physician order for OT as appropriate 23. Utilize diversional activities 24. Educate patient and patient territory service representative how to maintain a safe environment during visitation times (notify nurse prior to leaving bedside) 25. Consider appropriateness of medical or non-medical sociologist 26. Set up voiding schedule as appropriate (every 2 hours) Outcome: Progressing Note: Evaluation of progress towards goal: bed is locked and in lowest position. Call light within reach and hourly rounding maintained [employer] 07-02-2024 Nurse Note Pt pulse ox at 84%, pt placed on 2 liters of oxygen, notified patients nurse Ligia Soliz Rn of 02 placement. Pt resting quietly. [facility] Progress note Formatting of t his [...] decisions. Called son Ashok. Ashok would like [facility]-he has been there before. Referral sent. - Julisa Del Toro RN 07/02/24 3:38 PM [facility] 07-02-2024 Progress note Formatting of t his note is different from the original. Physical Therapy PT Type of Visit: Medical deferral Reason For Medical Deferral: Off unit Off Unit: Testing [facility] [employer] [facility] 07-02-2024 Progress note Formatting of t his note is different from the original. Occupational Therapy OT Type of Visit: Medical deferral Reason For Medical Deferral: Off unit Off Unit: Testing Activity Limitations: Strict bedrest [facility] [employer] [facility] 07-02-2024 Consult note Formatting of th is note is different from the original. NUTRITION ADULT INITIAL EVALUATION NUTRITION ASSESSMENT: Reason to be seen: screen: PO/wt loss Patient History: Admit Diagnosis: Patient Active Problem List Diagnosis Fall in home, initial encounter Past Medical History: Past Medical History: Diagnosis Date Cardiac arrest ([facility]) 02/2024 Coronary artery disease Dementia ([facility]) Fall in home, initial encounter 06/29/2024 Hemorrhoids Hyperlipidemia Hypertension Kidney stone Memory loss Myocardial infarction ([facility]) Urinary tract infection Past Surgical History:History reviewed. No pertinent surgical history. Social/ Cognitive/ Economic: A/Ox4; dementia but per RN, pt answers questions appropriately. Per son, PMH includes alcoholism, but pt no longer drinks EtOH. Brief Clinical Summary: 78 y.o. White or male. Presented to [facility] ED via EMS as a level 2 trauma after sustaining a fall from standing height; upgraded to level 1 given hypotension. PMH: Afib, CAD, dementia, [place]. At outside ED, CTAP showed possible hematoma [...] 3 days Lab Units 07/01/24 0215 06/30/24 0210 IONIZED MAGNESIUM mmol/L 0.55 0.53 Results from last 3 days Lab Units 07/01/24 0215 06/30/24 0210 PHOSPHORUS mg/dL 2.4 3.5 CALCIUM, IONIZED mg/dL [...] found for: VERYLOWLIP No results found for: [id number] No results found for: FOLATE No results [...] MARIA A Dunlap 200 mg at 07/02/24 08 atorvastatin (LIPITOR) tablet 80 mg 80 mg oral Nightly MARIA A Dunlap 80 mg at 07/01/242123 calcium gluconate IVPB 1000 mg/50 mL (20 [...] 25 mcg at 06/29/24 0324 flu vacc [id number] 6mos up(PF) (FLULAVAL/FLUZONE/FLUARIX TRIV) injection syringe 0.5 [...] tablet 20-50 mEq 20-50 mEq oral PRN MARI AA García Or potassium chloride (KAYCIEL) 20 mEq/15 [...] MD Nutrition Focused Physical Findings Last BM: 2/14, +1 edema, dementia/altered mentation Extremities, Muscles, and Bones -NICOLAS; 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 Skin (per nursing flow sheets): Skin Color: [place] (07/02/24521) Skin Temp: Warm; Dry (07/02/24521) Wound [...] Related History: Diet History: Discussed POC with son, Ashok, via telephone, and with pt. Per nutrition screening, recent unplanned wt loss of 10 lbs or more and son describes that as fluid loss after starting diuretics which resulted in edema/swelling at ankles improving. Per screening, PO intake of less than 50% of normal intake over last 2 wks; son notes it is likely r/t the procedure and not feeling well. 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 [place] Body Weight: 80.9 kg Percent [place] Body Weight: >100% Weight Changes: up this admit Body Mass Index: Body mass index is 29.51 kg/m . BMI Category: Pre-obese (25.00- 29.99) Comparative Standards: Estimated Energy Needs: 5977-6985 kcals daily. Method and weight used: 25-30 kcal/kg Estimated Protein Needs: 97-161 grams daily. Method and weight used: 1.2-2g protein/kg Estimated Fluid Needs: 4495-2418 ml daily. Method weight used: 1 ml/kcal Comments: BMI, IBW, general Malnutrition Status: Malnutrition Present: no; More information needed. NUTRITION DIAGNOSIS: Intake Diagnosis: Inadequate protein-energy intake (NI 5.3) related to mentation status (dementia Dx) as evidenced by PO intake of less than 50% of normal over last 2 weeks. NUTRITION INTERVENTIONS: Coordination of nutrition care: discussed POC/intakes with Kaylah MCGINNIS; and contacted son via telephone Meals & [...] MS, RD, LD Clinical Dietitian [employer] 07-02-2024 Consult note Formatting of th is note is different from the original. NUTRITION ADULT INITIAL EVALUATION NUTRITION ASSESSMENT: Reason to be seen: screen: PO/wt loss Patient History: Admit Diagnosis: Patient Active Problem List Diagnosis Fall in home, initial encounter Past Medical History: Past Medical History: Diagnosis Date Cardiac arrest ([facility]) 02/2024 Coronary artery disease Dementia ([facility]) Fall in home, initial encounter 06/29/2024 Hemorrhoids Hyperlipidemia Hypertension Kidney stone Memory loss Myocardial infarction ([facility]) Urinary tract infection Past Surgical History:History reviewed. No pertinent surgical history. Social/ Cognitive/ Economic: A/Ox4; dementia but per RN, pt answers questions appropriately. Per son, PMH includes alcoholism, but pt no longer drinks EtOH. Brief Clinical Summary: 78 y.o. White or male. Presented to [facility] ED via EMS as a level 2 trauma after sustaining a fall from standing height; upgraded to level 1 given hypotension. PMH: Afib, CAD, dementia, [place]. At outside ED, CTAP showed possible hematoma or active bleed concerning for renal laceration. Biochemical Data, Medical Tests, and Procedures: reviewed Labs: Results from last 3 days Lab Units 07/02/24 0607/01/24 1649 07/01/24 0828 07/01/245 06/30/24 021 SODIUM mmol/L 142 -- -- 141 142 POTASSIUM mmol/L 4.1 4.2 3.8 3.7 4.2 CHLORIDE mmol/L 108 -- -- 111* 112* CO2 mmol/L 26 -- -- 25 22 BUN mg/dL 13 -- -- 16 20 CREATININE mg/dL 1.15 -- -- 1.24 1.39* CALCIUM mg/dL 8.2* -- -- 7.9* 7.4* Results from last 7 days Lab Units 07/02/24 0607/02/24 0537 07/02/24 0521 07/01/24 2315 07/01/24 21007/01/24 17407/01/24 1137 BEDSIDE GLUCOSE mg/dL -- 87 90 106* 133* 96 118* GLUCOSE mg/dL 93 -- -- -- -- -- -- Results from last 3 days Lab Units 07/02/24 0607/01/24 1649 07/01/245 06/30/24 0905 06/30/24 021 WBC X10E9/L 7.3 -- 9.5 -- 10.1 HEMOGLOBIN g/dL 10.7* 10.6* 10.2* < > 10.4* HEMATOCRIT % 31.2* 31.8* 29.9* < > 30.3* PLATELETS X10E9/L 228 -- 235 -- 197 MCV fL 93 -- 92 -- 92 < > = values in this interval not displayed. Results from last 3 days Lab Units 07/01/2421406/30/24 021 IONIZED MAGNESIUM mmol/L 0.55 0.53 Results [...] found for: VERYLOWLIP No results found for: [id number] No results found for: FOLATE No results [...] Nightly MARIA A Dunlap 80 mg at 07/01/24 2124 calcium gluconate IVPB 1000 mg/50 mL (20 [...] 25 mcg at 06/29/24 0324 flu vacc [id number] 6mos up(PF) (FLULAVAL/FLUZONE/FLUARIX TRIV) injection syringe 0.5 [...] flush 3 mL 3 mL intravenous Q12H [facility] MARIA A García 3 mL at 07/02/24 0830 sodium chloride 0.9 % infusion 20 mL/hr intravenous Continuous PRN Fransico Villagomez MD Nutrition Focused Physical Findings Last BM: 06/28, +1 edema, dementia/altered mentation Extremities, Muscles, and Bones -NICOLAS; 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 Skin (per nursing flow sheets): Skin Color: [place] (07/02/24521) Skin Temp: Warm; Dry (07/02/24521) Wound [...] Related History: Diet History: Discussed POC with son, Ashok, via telephone, and with pt. Per nutrition screening, recent unplanned wt loss of 10 lbs or more and son describes that as fluid loss after starting diuretics which resulted in edema/swelling at ankles improving. Per screening, PO intake of less than 50% of normal intake over last 2 wks; son notes it is likely r/t the procedure and not feeling well. 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 [place] Body Weight: 80.9 kg Percent [place] Body Weight: >100% Weight Changes: up this admit Body Mass Index: Body mass index is 29.51 kg/m . BMI Category: Pre-obese (25.00- 29.99) Comparative Standards: Estimated Energy Needs: 2753-0492 kcals daily. Method and weight used: 25-30 kcal/kg Estimated Protein Needs: 97-161 grams daily. Method and weight used: 1.2-2g protein/kg Estimated Fluid Needs: 1019-2716 ml daily. Method weight used: 1 ml/kcal [...] were not included. Urology Consult Note Patient: Justus Loyola Date of : 1945 ATTENDING: Dr. [...] at home per son. He presented to [facility]. We will CT scan showed large perinephric [...] History: Diagnosis Date Coronary artery disease Dementia ([facility]) Hemorrhoids Memory loss Myocardial infarction ([facility]) Urinary tract infection Past Surgical History: History reviewed. No pertinent surgical history. Medications: Scheduled Meds: acetaminophen, 1,000 mg, intravenous, Q6H famotidine, 20 mg, intravenous, Q24H TYRON insulin lispro, 2-10 Units, subcutaneous, Q6H lidocaine, 1 patch, transdermal, Daily polyethylene glycol, 17 g, oral, Daily sennosides-docusate sodium, 2 tablet, oral, BID sodium chloride, 3 mL, intravenous, Q12H [facility] Continuous Infusions: dextrose 5 % in water, [...] Resource Strain: Patient Declined (04/24/2024) Received from [facility] Overall Financial Resource Strain (CARDIA) Difficulty of Paying Living Expenses: Patient declined Food Insecurity: No Food Insecurity (06/29/2024) Hunger Screening Food Insecurity - Worry: Never True Food Insecurity - Inability: Never True Transportation Needs: Patient Declined (04/24/2024) Received from [facility] TA - Transportation Lack of Transportation (Medical): Patient declined Lack of Transportation (Non-Medical): Patient declined Physical Activity: Patient Declined (04/24/2024) Received from [facility] Exercise Vital Sign Days of Exercise per Week: Patient declined Minutes of Exercise per Session: Patient declined Stress: Patient Declined (04/24/2024) Received from [facility] [employer] - Occupational Stress Questionnaire Feeling of Stress : Patient declined Social Connections: Patient Declined (04/24/2024) Received from [facility] Social Connection and Isolation Panel [NHANES] Frequency of Communication with Friends and Family: Patient declined Frequency of Social Gatherings with Friends and Family: Patient declined Attends Moravian Services: Patient declined Active Member of Clubs or Organizations: Patient declined Attends Club or Organization Meetings: Patient declined Marital Status: Patient declined Interpersonal Safety: Unknown (04/24/2024) Received from [facility] Humiliation, Afraid, Rape, and Kick questionnaire Fear of Current or Ex-Partner: Patient declined Emotionally Abused: Patient declined Physically Abused: Not on file Sexually Abused: Patient declined Housing Instability: Patient Declined (04/24/2024) Received from [facility] Vital Sign Unable to Pay for Housing [...] (!) 30 98 % -- -- 06/29/24 014 102/51 36.8 C (98.2 F) Axillary 72 18 98 % -- -- 06/29/243 110/46 -- -- 73 (!) 27 97 [...] Results from last 7 days Lab Units 06/29/2413606/28/24211406/28/24 1901 WBC X10E9/L 10.6 -- 13.8* HEMOGLOBIN [...] CT abdomen and pelvis with contrast Order: [id number] Status: Final result Visible to patient: No (scheduled for 07/02/2024 8:00 PM) Next appt: None 0 Result Notes Details Reading Physician Reading Date Result Priority Fito Alexander MD [phone] 06/28/2024 STAT Narrative & Impression CT ABDOMEN [...] for further details. Assessment and Plan Impression: Justus Loyola is a 78 y.o. male who [...] as necessary. Associated Order(s): IP CONSULT TO SICU Academic Critical Care CONSULTATION Name: Justus Loyola Date: 06/29/2024 Length of Stay: 0 day(s) Chief Concern: Chief Complaint Patient presents with Trauma History of Present Illness Justus Loyola is an 78 y.o. White or male presented to [facility] ED via EMS as a level 2 [...] History: Diagnosis Date Coronary artery disease Dementia ([facility]) Hemorrhoids Memory loss Myocardial infarction ([facility]) Urinary tract infection History reviewed. No pertinent [...] Resource Strain: Patient Declined (04/24/2024) Received from [facility] Overall Financial Resource Strain (CARDIA) Difficulty of Paying Living Expenses: Patient declined Food Insecurity: No Food Insecurity (06/29/2024) Hunger Screening Food Insecurity - Worry: Never True Food Insecurity - Inability: Never True Transportation Needs: Patient Declined (04/24/2024) Received from [facility] TA - Transportation Lack of Transportation (Medical): Patient declined Lack of Transportation (Non-Medical): Patient declined Physical Activity: Patient Declined (04/24/2024) Received from [facility] Exercise Vital Sign Days of Exercise per Week: Patient declined Minutes of Exercise per Session: Patient declined Stress: Patient Declined (04/24/2024) Received from [facility] [employer] [facility] [employer] - Occupational Stress Questionnaire Feeling of Stress : Patient declined Social Connections: Patient Declined (04/24/2024) Received from [facility] Social Connection and Isolation Panel [NHANES] Frequency of Communication with Friends and Family: Patient declined Frequency of Social Gatherings with Friends and Family: Patient declined Attends Moravian Services: Patient declined Active Member of Clubs or Organizations: Patient declined Attends Club or Organization Meetings: Patient declined Marital Status: Patient declined Interpersonal Safety: Unknown (04/24/2024) Received from [facility] Humiliation, Afraid, Rape, and Kick questionnaire Fear of Current or Ex-Partner: Patient declined Emotionally Abused: Patient declined Sexually Abused: Patient declined Housing Instability: Patient Declined (04/24/2024) Received from [facility] Housing Stability Vital Sign Unable to Pay [...] from last 3 days Lab Units 06/29/2413606/28/24 2115 06/28/24 1901 WBC X10E9/L 10.6 -- 13.8* HEMOGLOBIN g/dL 6.9* 7.9* 8.6* HEMATOCRIT % 20.6* 23.3* 25.7* PLATELETS X10E9/L 186 -- 252 MCV fL 94 -- 94 MCH pg 31.4 -- 31.4 MCHC g/dL 33.4 -- 33.6 RDW % 14.5 -- 15.0 EOS ABS AUTO X10E9/L 0.0 -- 0.0 Microbiology Results Procedure Component Value Units Date/Time Urine culture [[id number]] Resulted: 06/29/24319 Specimen: Urine Updated: 06/29/24330 Blood culture, peripheral #2 [[id number]] Collected: 06/28/241906 Specimen: Blood, Peripheral Draw Updated: 06/28/241913 Blood culture, peripheral #1 [[id number]] Collected: 06/28/241858 Specimen: Blood, Peripheral Draw Updated: 06/28/241913 SARS/FLU A+B/RSV by NAAT/Molecular (M4RT Collection Tube) [[id number]] Collected: 06/28/241809 Specimen: Nasopharynx Updated: 06/28/241946 FLU A PCR Negative FLU B PCR Negative RSV by PCR Negative SARS CoV 2 BY PCR Not Detected Results from last 7 days Lab Units 06/29/247 06/28/241900 GLUCOSE mg/dL 105* 137* Medications acetaminophen, [...] Procedure Component Value Units Date/Time Urine culture [[id number]] Resulted: 06/29/24319 Specimen: Urine Updated: 06/29/24330 Blood culture, peripheral #2 [[id number]] Collected: 06/28/241906 Specimen: Blood, Peripheral Draw Updated: 06/28/241913 Blood culture, peripheral #1 [[id number]] Collected: 06/28/241858 Specimen: Blood, Peripheral Draw Updated: 06/28/241913 SARS/FLU A+B/RSV by NAAT/Molecular (M4RT Collection Tube) [[id number]] Collected: 06/28/241809 Specimen: Nasopharynx Updated: 06/28/241946 FLU [...] status post reversal with [employer] CKD ASSESSMENT/PLAN: Justus Loyola is a 78 y.o. year-old male s/p fall, has left renal hematoma. 1. Neuro: Sedation: None Analgesia: IV Tylenol, fentanyl, lidocaine patch 2. Cardiovascular: Cardiac Code Status: Full Code Continuous cardiac monitoring Scheduled Meds: None PRN Meds: None PMH: CAD, hypertension, hyperlipidemia, previous AK, AFib Home meds: Eliquis, Plavix 3. Resp: [...] and titration of care by critical care bell staff. Failure to do so may result in [...] 06/29/2024 10:06 AM documented in this encounter [employer] 07-02-2024 Progress note Formatting of t his note is different from the original. Occupational Therapy OT Type of Visit: Medical deferral Reason For Medical Deferral: Activity limitations Activity Limitations: Strict bedrest cont as time allows once pt has increased activity orders [facility] 07-01-2024 Plan of care note Problem: Pain Goal: Patient goal is pain score less than 4, able to rest, and participant in treatment plan as appropriate Description: INTERVENTIONS: 1. Encourage patient or legal territory service representative to report early pain and ask [...] per policy 9. Teach patient or legal territory service representative interventions for comforting Outcome: Progressing Note: [...] at the bedside 7. Instruct patient/ patient territory service representative about use of safety devices 8. Include patient/ patient territory service representative in decisions related to safety Outcome: [...] hygiene technique. 7. Identify and instruct patient/patient territory service representative in use of appropriate isolation precautions for identified infection/symptoms. 8. Provide and discuss with patient/patient territory service representative on educational MDRO sheet. 9. Encourage and monitor nutritional status daily and consult town manager if indicated. 10. Implement neutropenic guidelines as needed. Outcome: Progressing Note: Evaluation of progress towards goal: patient remains afebrile, will continue to monitor labs Problem: Knowledge Deficit Goal: Patient/patient territory service representative demonstrates understanding of disease process, treatment [...] be free from fall Description: Interventions: 1. [place] to environment 2. Hourly rounds addressing the [...] non-skid footwear 11. Teach patient and patient territory service representative to maintain environment for safety and [...] (cane, walker) within reach 19. Request patient territory service representative bring adaptive equipment/mobility aids from home or obtain and provide as needed 20. Consult pharmacy regarding effects of med's affecting mobility, cognition, and alternatives 21. Obtain physician order for PT if risk factors associated with mobility are present 22. Obtain physician order for OT as appropriate 23. Utilize diversional activities 24. Educate patient and patient territory service representative how to maintain a safe environment during visitation times (notify nurse prior to leaving bedside) 25. Consider appropriateness of medical or non-medical sociologist 26. Set up voiding schedule as appropriate (every 2 hours) Outcome: Progressing Note: Evaluation of progress towards goal: patient remains free from falls [facility] Hospital Discharge instructions Denisha Bertrand - 07/01/2024 4:48 PM EST YOUR SCHEDULED APPOINTMENTS Please make note of this in your schedule as to not miss or call to reschedule. Thank you! MERE GARCIA APRN-LIONEL PCP - General Family Medicine phone [phone] fax [phone] [id number] [facility] [id number] Next Steps: Go on 07/08/2024 Instructions: 3:00 [...] For NEW patients, MD will not prescribe mcfp pain medication. documented in this encounter [facility] 07-01[facility]24 Progress note Formatting of t his note is different from the original. Images from the original note were not included. DISCHARGE PLANNING NOTE Slasher met with patient, introduced self, and explained role. Patient educated on safe discharge plan. Pt admitted 06/29/2024 with Acute blood loss anemia [D62] Fall in home, initial encounter [W19.XXXA, Y92.009] per chart review. Consults: Trauma and Urology Discharge Barriers per Daily Transition Rounds and chart review: PT/OT eval, bilat duplex, oxygen, H&H q12 Past Medical History: Diagnosis Date Cardiac arrest ([facility]) 02/2024 Coronary artery disease Dementia ([facility]) Fall in home, initial encounter 06/29/2024 Hemorrhoids Hyperlipidemia Hypertension Kidney stone Memory loss Myocardial infarction ([facility]) Urinary tract infection Prior to admission patient [...] steps into home. PCP: REINALDO CHAKRABORTY Pharmacy: [facility] PCP and pharmacy confirmed with patient. [...] daughter in laws house Sons address is [address] [place] [address] Services Requested: Services Requested Patient expects to [...] Del Toro RN 07/01/24 2:01 PM [facility] 07-01-2024 Plan of care note Problem: Pain Goal: Patient goal is pain score less than 4, able to rest, and participant in treatment plan as appropriate Description: INTERVENTIONS: 1. Encourage patient or legal territory service representative to report early pain and ask [...] per policy 9. Teach patient or legal territory service representative interventions for comforting Outcome: Progressing Note: [...] at the bedside 7. Instruct patient/ patient territory service representative about use of safety devices 8. Include patient/ patient territory service representative in decisions related to safety Outcome: [...] hygiene technique. 7. Identify and instruct patient/patient territory service representative in use of appropriate isolation precautions for identified infection/symptoms. 8. Provide and discuss with patient/patient territory service representative on educational MDRO sheet. 9. Encourage and monitor nutritional status daily and consult town manager if indicated. 10. Implement neutropenic guidelines as needed. Outcome: Progressing Note: Evaluation of progress towards goal: Problem: Knowledge Deficit Goal: Patient/patient territory service representative demonstrates understanding of disease process, treatment [...] supplement as ordered 13. Collaborate with clinical town manager 14. Include patient/ patient's territory service representative in decisions related to nutrition Outcome: [...] Moderate - High Risk Fall Score Description: Custer Fall Score of =/> 25 or indicated by [facility] Assessment Goal: Patient should be free from fall Description: Interventions: 1. [place] to environment 2. Hourly rounds addressing the [...] non-skid footwear 11. Teach patient and patient territory service representative to maintain environment for safety and [...] (cane, walker) within reach 19. Request patient territory service representative bring adaptive equipment/mobility aids from home or obtain and provide as needed 20. Consult pharmacy regarding effects of med's affecting mobility, cognition, and alternatives 21. Obtain physician order for PT if risk factors associated with mobility are present 22. Obtain physician order for OT as appropriate 23. Utilize diversional activities 24. Educate patient and patient territory service representative how to maintain a safe environment during visitation times (notify nurse prior to leaving bedside) 25. Consider appropriateness of medical or non-medical sociologist 26. Set up voiding schedule as appropriate (every 2 hours) Outcome: Progressing Note: Evaluation of progress towards goal: Patient remains free from falls and injury, fall risk ID band on, fall prevention education and precautions provided and in place. Hourly rounds maintained, call light in reach, and safety measures in place. Additional Comments: [email or web address]-2024 Progress note Formatting of t his note is different from the original. Physical Therapy PT Type of Visit: Medical deferral Reason For Medical Deferral: RN deems inappropriate, Activity limitations RN Deems Inappropriate: Failed MOVES safety screen Activity Limitations: Strict bedrest [facility] 07-01-2024 Progress note Formatting of t his note is different from the original. Occupational Therapy OT Type of Visit: Medical deferral Reason For Medical Deferral: Activity limitations Activity Limitations: Strict bedrest [facility] 06-30-2024 Plan of care note Problem: Pain Goal: Patient goal is pain score less than 4, able to rest, and participant in treatment plan as appropriate Description: INTERVENTIONS: 1. Encourage patient or legal territory service representative to report early pain and ask [...] per policy 9. Teach patient or legal territory service representative interventions for comforting Outcome: Progressing Note: [...] at the bedside 7. Instruct patient/ patient territory service representative about use of safety devices 8. Include patient/ patient territory service representative in decisions related to safety Outcome: [...] every shift provided with CHG impregnated wipes [employer] 06-30-2024 Progress note Formatting of t his note is different from the original. Occupational Therapy OT Type of Visit: Medical deferral Reason For Medical Deferral: Activity limitations RN Deems Inappropriate: Failed MOVES safety screen Activity Limitations: Strict bedrest [employer] [facility] 06-30-2024 Progress note Formatting of t his [...] bedrest orders; attempt PT as appropriate) [facility] 06-30-2024 Plan of care note Problem: Pain Goal: Patient goal is pain score less than 4, able to rest, and participant in treatment plan as appropriate Description: INTERVENTIONS: 1. Encourage patient or legal territory service representative to report early pain and ask [...] per policy 9. Teach patient or legal territory service representative interventions for comforting Outcome: Progressing Note: [...] at the bedside 7. Instruct patient/ patient territory service representative about use of safety devices 8. Include patient/ patient territory service representative in decisions related to safety Outcome: [...] every shift provided with CHG impregnated wipes [facility] [employer] 06-29-2024 Progress note Formatting of t his [...] by: Shar Schaffer MD 06/29/2024 12:[address] [facility] [employer] 06-29-2024 Progress note Formatting of t his note is different from the original. Occupational Therapy OT Type of Visit: Medical deferral Reason For Medical Deferral: Activity limitations RN Deems Inappropriate: Failed MOVES safety screen Activity Limitations: Strict bedrest [facility] [employer] 06-29-2024 Progress note Formatting of t his note is different from the original. Physical Therapy PT Type of Visit: Medical deferral Reason For Medical Deferral: RN deems inappropriate, Activity limitations RN Deems Inappropriate: Failed MOVES safety screen Activity Limitations: Strict bedrest [facility] [facility] Procedure note Procedure(s): INSERT ARTERIAL LINE Procedure Note - Arterial Line Pre-Procedure Diagnosis: Hypotension Post-Procedure Diagnosis: Same Procedure: Left radial arterial line Surgeon: Dr. Ru Schwarz Resident: Miah Sharp, PGY-2 Indication: Justus Loyola is a 78 y.o. male with [...] for the archer components of the procedure. [employer] Work Phone: 06-29-2024 Procedure note Procedure(s): INSERT ARTERIAL LINE Procedure Note - Arterial Line Pre-Procedure Diagnosis: Hypotension Post-Procedure Diagnosis: Same Procedure: Left radial arterial line Surgeon: Dr. Ru Schwarz Resident: Miah Sharp, PGY-2 Indication: Justus Loyola is a 78 y.o. male with [...] of the procedure. documented in this encounter [facility] Consult note Associated Order (s): IP CONSULT TO UROLOGY Images from the original note were not included. Urology Consult Note Patient: Justus Loyola Date of : 1945 ATTENDING: Dr. [...] at home per son. He presented to [facility]. We will CT scan showed large perinephric [...] History: Diagnosis Date Coronary artery disease Dementia ([facility]) Hemorrhoids Memory loss Myocardial infarction ([facility]) Urinary tract infection Past Surgical History: History reviewed. No pertinent surgical history. Medications: Scheduled Meds: acetaminophen, 1,000 mg, intravenous, Q6H famotidine, 20 mg, intravenous, Q24H TRYON insulin lispro, 2-10 Units, subcutaneous, Q6H lidocaine, [...] Resource Strain: Patient Declined (04/24/2024) Received from [facility] Overall Financial Resource Strain (CARDIA) Difficulty of Paying Living Expenses: Patient declined Food Insecurity: No Food Insecurity (06/29/2024) Hunger Screening Food Insecurity - Worry: Never True Food Insecurity - Inability: Never True Transportation Needs: Patient Declined (04/24/2024) Received from [facility] TA - Transportation Lack of Transportation (Medical): Patient declined Lack of Transportation (Non-Medical): Patient declined Physical Activity: Patient Declined (04/24/2024) Received from [facility] Exercise Vital Sign Days of Exercise per Week: Patient declined Minutes of Exercise per Session: Patient declined Stress: Patient Declined (04/24/2024) Received from [facility] [employer] - Occupational Stress Questionnaire Feeling of Stress : Patient declined Social Connections: Patient Declined (04/24/2024) Received from [facility] Social Connection and Isolation Panel [NHANES] Frequency of Communication with Friends and Family: Patient declined Frequency of Social Gatherings with Friends and Family: Patient declined Attends Moravian Services: Patient declined Active Member of Clubs or Organizations: Patient declined Attends Club or Organization Meetings: Patient declined Marital Status: Patient declined Interpersonal Safety: Unknown (04/24/2024) Received from [facility] Humiliation, Afraid, Rape, and Kick questionnaire Fear of Current or Ex-Partner: Patient declined Emotionally Abused: Patient declined Physically Abused: Not on file Sexually Abused: Patient declined Housing Instability: Patient Declined (04/24/2024) Received from [facility] Housing Stability Vital Sign Unable to Pay [...] 69 (!) 33 96 % -- -- 06/29/247 131/56 -- -- 74 (!) 33 97 % -- -- 06/29/24153 -- -- -- -- -- -- 182.9 cm (6') 93 kg (205 lb) 06/29/24147 99/55 -- -- 71 (!) 30 98 % -- -- 06/29/24143 102/51 36.8 C (98.2 F) Axillary 72 18 98 % -- -- 06/29/24 0143 110/46 -- -- 73 (!) 27 97 % -- -- 06/29/249 -- -- -- 74 (!) 26 97 [...] Results from last 7 days Lab Units 06/29/2413606/28/24211406/28/24 1901 WBC X10E9/L 10.6 -- 13.8* HEMOGLOBIN g/dL 6.9* 7.9* 8.6* HEMATOCRIT % 20.6* 23.3* 25.7* PLATELETS X10E9/L 186 -- 252 Results from last 7 days Lab Units 06/29/24 0137 06/28/24 1901 POTASSIUM mmol/L 3.6 3.8 CHLORIDE mmol/L [...] CT abdomen and pelvis with contrast Order: [id number] Status: Final result Visible to patient: No (scheduled for 07/02/2024 8:00 PM) Next appt: None 0 Result Notes Details Reading Physician Reading Date Result Priority Fito Alexander MD [phone] 06/28/2024 STAT Narrative & Impression CT ABDOMEN [...] 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 Assessment and Plan Impression: Justus Loyola is a 78 y.o. male who [...] unless Cr worsens significantly. Transfuse as necessary. [employer] 06-29-2024 History and physical note Images from the original note were not included. Trauma Surgery History & Physical Examination /Consultation Note Patient: Justus Loyola Date of : 1945 Estimated time of injury: 06/28/24 afternoon LOC: Unknown Transport: EMS from [place] Trauma level: Level 1 Work related: No History of Present Illness Edluis armando Loyola is an 78 y.o. White or male presented to [facility] ED via EMS as a level 2 [...] History: Diagnosis Date Coronary artery disease Dementia ([facility]) Hemorrhoids Memory loss Myocardial infarction ([facility]) Urinary tract infection Fall: Fall occurred: standing [...] Resource Strain: Patient Declined (04/24/2024) Received from [facility] Overall Financial Resource Strain (CARDIA) Difficulty of Paying Living Expenses: Patient declined Food Insecurity: No Food Insecurity (06/29/2024) Hunger Screening Food Insecurity - Worry: Never True Food Insecurity - Inability: Never True Transportation Needs: Patient Declined (04/24/2024) Received from [facility] TA - Transportation Lack of Transportation (Medical): Patient declined Lack of Transportation (Non-Medical): Patient declined Physical Activity: Patient Declined (04/24/2024) Received from [facility] Exercise Vital Sign Days of Exercise per Week: Patient declined Minutes of Exercise per Session: Patient declined Stress: Patient Declined (04/24/2024) Received from [facility] [employer] - Occupational Stress Questionnaire Feeling of Stress : Patient declined Social Connections: Patient Declined (04/24/2024) Received from [facility] Social Connection and Isolation Panel [NHANES] Frequency of Communication with Friends and Family: Patient declined Frequency of Social Gatherings with Friends and Family: Patient declined Attends Moravian Services: Patient declined Active Member of Clubs or Organizations: Patient declined Attends Club or Organization Meetings: Patient declined Marital Status: Patient declined Interpersonal Safety: Unknown (04/24/2024) Received from [facility] Humiliation, Afraid, Rape, and Kick questionnaire Fear of Current or Ex-Partner: Patient declined Emotionally Abused: Patient declined Physically Abused: Not on file Sexually Abused: Patient declined Housing Instability: Patient Declined (04/24/2024) Received from [facility] Housing Stability Vital Sign Unable to Pay [...] 121/55 Pulse: 73 70 71 79 Resp: Temp: 37.1 C (98.7 F) 36.9 C [...] Result Value Ref Range Blood component type [id number] Unit number [id number] Unit ABO O Unit RH POS Crossmatch Compatible Status of unit ISSUED Expiration Date [id number] BB Type Barcode 5100 ABO Rh Repeat Collection Time: 06/29/24 1:30 AM Result Value Ref Range ABO A RH Positive Crossmatch RBC: Collection Time: 06/29/24 1:30 AM Result Value Ref Range Blood component type [id number] Unit number [id number] Unit ABO O Unit RH POS Crossmatch Compatible Status of unit SELECTED Expiration Date [id number] BB Type Barcode 5100 Crossmatch RBC: Collection Time: 06/29/24 1:30 AM Result Value Ref Range Blood component type [id number] Unit number [id number] Unit ABO O Unit RH POS Crossmatch Compatible Status of unit SELECTED Expiration Date [id number] BB Type Barcode 5100 Crossmatch RBC: Collection Time: 06/29/24 1:30 AM Result Value Ref Range Blood component type [id number] Unit number [id number] Unit ABO O Unit RH POS Crossmatch Compatible Status of unit SELECTED Expiration Date [id number] BB Type Barcode 5100 Crossmatch RBC: Collection Time: 06/29/24 1:30 AM Result Value Ref Range Blood component type [id number] Unit number [id number] Unit ABO O Unit RH POS Status of unit ISSUED Expiration Date [id number] BB Type Barcode 5100 Crossmatch RBC: Collection Time: 06/29/24 1:30 AM Result Value Ref Range Blood component type [id number] Unit number [id number] Unit ABO O Unit RH POS Status of unit ISSUED Expiration Date [id number] BB Type Barcode 5100 Crossmatch RBC: Collection Time: 06/29/24 1:30 AM Result Value Ref Range Blood component type S4650R71 Unit number [id number] Unit ABO O Unit RH POS Status of unit ISSUED Expiration Date [id number] BB Type Barcode 5100 Crossmatch RBC: Collection Time: 06/29/24 1:30 AM Result Value Ref Range Blood component type M1595J95 Unit number [id number] Unit ABO O Unit RH POS Status of unit /RELEASED Expiration Date [id number] BB Type Barcode 5100 Crossmatch RBC: Collection Time: 06/29/24 1:30 AM Result Value Ref Range Blood component type B8973J31 Unit number [id number] Unit ABO O Unit RH POS Status of unit /RELEASED Expiration Date BB Type Barcode 5100 Crossmatch RBC: Collection Time: 06/29/24 1:30 AM Result Value Ref Range Blood component type [id number] Unit number [id number] Unit ABO O Unit RH POS Status of unit /RELEASED Expiration Date BB Type Barcode 5100 Protime & INR [...] 0.00 - 0.08 g/dL Amylase Collection Time: 02/15/25 1:37 AM Result Value Ref Range Amylase [...] Procedure Component Value - Date/Time Urine culture [[id number]] Resulted: 06/29/24 0320 Lab Status: In process Specimen: Urine Updated: 06/29/24 0331 Urine culture [[id number]] Collected: 06/28/24 2100 Lab Status: No result Specimen: Urine Blood culture, peripheral #2 [[id number]] Collected: 06/28/24 1907 Lab Status: In process Specimen: Blood, Peripheral Draw Updated: 06/28/241913 Blood culture, peripheral #1 [[id number]] Collected: 06/28/24 1859 Lab Status: In process Specimen: Blood, Peripheral Draw Updated: 06/28/241913 SARS/FLU A+B/RSV by NAAT/Molecular (M4RT Collection Tube) [[id number]] Collected: 06/28/24 1810 Lab Status: Final result [...] operators who are performing tests using either [employer] or [employer] systems and is limited to laboratories that [...] specimen repeat. Fact Sheet for Healthcare Providers: https://www.fda.gov/media/355906/do wnload Fact Sheet for Patients: https://www.fda.gov/media/163790/do wnload Independently reviewed trauma specific results. Radiology [...] reviewed the procedural images. Electronically signed: ASHLEY JOCYE MD. Cardiac device check - Remote Result [...] is 56.5 and plateaued after trending upward. SLOT ATTENDANT RVP 85.0% Independently reviewed radiographic studies to [...] or social work consult. ASSESSMENT / PLAN Justus Loyola 78 y.o. male Mechanism: Fall from [...] PRN Comorbidities/Medical issues: Neuro- Pulm- Cardio- CAD, AK, HTN GI- - CKD, nephrolithiasis Heme- ID- [...] can be reached via Patient Touch Pager: [phone] Cosigned by Ru Schwarz MD at 06/29/2024 [...] left perinephric hematoma. Patient was transferred to [facility] as a level 2 trauma activation. Due to hypotension he was upgraded to a level 1 activation. Patient evaluated by ATLS protocol. Initial GCS of 15. To crystalloid infusion and then 1 PRBC. No additional testing was done. Patient to be admitted to the surgical intensive care unit with consultation to urology [facility] Work Phone: 06-29-2024 History and physical note Images from the original note were not included. Trauma Surgery History & Physical Examination /Consultation Note Patient: Justus Loyola Date of : 1945 Estimated time of injury: 06/28/24 afternoon LOC: Unknown Transport: EMS from [facility] Trauma level: Level 1 Work related: No History of Present Illness Justus Loyola is an 78 y.o. White or male presented to [facility] ED via EMS as a level 2 [...] History: Diagnosis Date Coronary artery disease Dementia ([facility]) Hemorrhoids Memory loss Myocardial infarction ([facility]) Urinary tract infection Fall: Fall occurred: standing [...] Resource Strain: Patient Declined (04/24/2024) Received from [facility] Overall Financial Resource Strain (CARDIA) Difficulty of Paying Living Expenses: Patient declined Food Insecurity: No Food Insecurity (06/29/2024) Hunger Screening Food Insecurity - Worry: Never True Food Insecurity - Inability: Never True Transportation Needs: Patient Declined (04/24/2024) Received from [facility] TA - Transportation Lack of Transportation (Medical): Patient declined Lack of Transportation (Non-Medical): Patient declined Physical Activity: Patient Declined (04/24/2024) Received from [facility] Exercise Vital Sign Days of Exercise per Week: Patient declined Minutes of Exercise per Session: Patient declined Stress: Patient Declined (04/24/2024) Received from [facility] [employer] - Occupational Stress Questionnaire Feeling of Stress : Patient declined Social Connections: Patient Declined (04/24/2024) Received from [facility] Social Connection and Isolation Panel [NHANES] Frequency of Communication with Friends and Family: Patient declined Frequency of Social Gatherings with Friends and Family: Patient declined Attends Moravian Services: Patient declined Active Member of Clubs or Organizations: Patient declined Attends Club or Organization Meetings: Patient declined Marital Status: Patient declined Interpersonal Safety: Unknown (04/24/2024) Received from [facility] Humiliation, Afraid, Rape, and Kick questionnaire Fear of Current or Ex-Partner: Patient declined Emotionally Abused: Patient declined Physically Abused: Not on file Sexually Abused: Patient declined Housing Instability: Patient Declined (04/24/2024) Received from [facility] Housing Stability Vital Sign Unable to Pay [...] 121/55 Pulse: 73 70 71 79 Resp: 23 Temp: 37.1 C (98.7 F) 36.9 [...] Result Value Ref Range Blood component type [id number] Unit number [id number] Unit ABO O Unit RH POS Crossmatch Compatible Status of unit ISSUED Expiration Date [id number] BB Type Barcode 5100 ABO Rh Repeat Collection Time: 06/29/24 1:30 AM Result Value Ref Range ABO A RH Positive Crossmatch RBC: Collection Time: 06/29/24 1:30 AM Result Value Ref Range Blood component type G8898C82 Unit number [id number] Unit ABO O Unit RH POS Crossmatch Compatible Status of unit SELECTED Expiration Date [id number] BB Type Barcode 5100 Crossmatch RBC: Collection Time: 06/29/24 1:30 AM Result Value Ref Range Blood component type [id number] Unit number [id number] Unit ABO O Unit RH POS Crossmatch Compatible Status of unit SELECTED Expiration Date [id number] BB Type Barcode 5100 Crossmatch RBC: Collection Time: 06/29/24 1:30 AM Result Value Ref Range Blood component type G0695N35 Unit number [id number] Unit ABO O Unit RH POS Crossmatch Compatible Status of unit SELECTED Expiration Date [id number] BB Type Barcode 5100 Crossmatch RBC: Collection Time: 06/29/24 1:30 AM Result Value Ref Range Blood component type Z9928Z84 Unit number [id number] Unit ABO O Unit RH POS Status of unit ISSUED Expiration Date [id number] BB Type Barcode 5100 Crossmatch RBC: Collection Time: 06/29/24 1:30 AM Result Value Ref Range Blood component type C9774T08 Unit number [id number] Unit ABO O Unit RH POS Status of unit ISSUED Expiration Date [id number] BB Type Barcode 5100 Crossmatch RBC: Collection Time: 06/29/24 1:30 AM Result Value Ref Range Blood component type W2785G31 Unit number [id number] Unit ABO O Unit RH POS Status of unit ISSUED Expiration Date [id number] BB Type Barcode 5100 Crossmatch RBC: Collection Time: 06/29/24 1:30 AM Result Value Ref Range Blood component type X3016X28 Unit number [id number] Unit ABO O Unit RH POS Status of unit /RELEASED Expiration Date BB Type Barcode 5100 Crossmatch RBC: Collection Time: 06/29/24 1:30 AM Result Value Ref Range Blood component type C9841R81 Unit number [id number] Unit ABO O Unit RH POS Status of unit /RELEASED Expiration Date BB Type Barcode 5100 Crossmatch RBC: Collection Time: 06/29/24 1:30 AM Result Value Ref Range Blood component type X8597L54 Unit number [id number] Unit ABO O Unit RH POS Status of unit /RELEASED Expiration Date BB Type Barcode 5100 Protime & INR [...] Procedure Component Value - Date/Time Urine culture [[id number]] Resulted: 06/29/24 0320 Lab Status: In process Specimen: Urine Updated: 06/29/24 0331 Urine culture [[id number]] Collected: 06/28/24 2100 Lab Status: No result Specimen: Urine Blood culture, peripheral #2 [[id number]] Collected: 06/28/24 1907 Lab Status: In process Specimen: Blood, Peripheral Draw Updated: 06/28/24 1914 Blood culture, peripheral #1 [[id number]] Collected: 06/28/24 1859 Lab Status: In process Specimen: Blood, Peripheral Draw Updated: 06/28/241913 SARS/FLU A+B/RSV by NAAT/Molecular (M4RT Collection Tube) [[id number]] Collected: 06/28/241809 Lab Status: Final result Specimen: Nasopharynx Updated: [...] operators who are performing tests using either [employer] or [employer] systems and is limited to laboratories that [...] specimen repeat. Fact Sheet for Healthcare Providers: https://www.fda.gov/media/607723/do wnload Fact Sheet for Patients: https://www.fda.gov/media/152867/do wnload Independently reviewed trauma specific results. Radiology [...] is 56.5 and plateaued after trending upward. SLOT ATTENDANT RVP 85.0% Independently reviewed radiographic studies to [...] or social work consult. ASSESSMENT / PLAN Justus Loyola 78 y.o. male Mechanism: Fall from [...] PRN Comorbidities/Medical issues: Neuro- Pulm- Cardio- CAD, AK, HTN GI- - CKD, nephrolithiasis Heme- ID- [...] can be reached via Patient Touch Pager: [phone] Cosigned by Ru Schwarz MD at 06/29/2024 [...] left perinephric hematoma. Patient was transferred to [facility] as a level 2 trauma activation. Due to hypotension he was upgraded to a level 1 activation. Patient evaluated by ATLS protocol. Initial GCS of 15. To crystalloid infusion and then 1 PRBC. No additional testing was done. Patient to be admitted to the surgical intensive care unit with consultation to urology documented in this encounter [facility] 06-29-2024 Consult note Associated Order (s): IP CONSULT TO SICU Academic Critical Care CONSULTATION Name: Justus Loyola Date: 06/29/2024 Length of Stay: 0 day(s) Chief Concern: Chief Complaint Patient presents with Trauma History of Present Illness Justus Loyola is an 78 y.o. White or male presented to [facility] ED via EMS as a level 2 [...] History: Diagnosis Date Coronary artery disease Dementia ([facility]) Hemorrhoids Memory loss Myocardial infarction ([facility]) Urinary tract infection History reviewed. No pertinent [...] Resource Strain: Patient Declined (04/24/2024) Received from [facility] Overall Financial Resource Strain (CARDIA) Difficulty of Paying Living Expenses: Patient declined Food Insecurity: No Food Insecurity (06/29/2024) Hunger Screening Food Insecurity - Worry: Never True Food Insecurity - Inability: Never True Transportation Needs: Patient Declined (04/24/2024) Received from [facility] TA - Transportation Lack of Transportation (Medical): Patient declined Lack of Transportation (Non-Medical): Patient declined Physical Activity: Patient Declined (04/24/2024) Received from [facility] Exercise Vital Sign Days of Exercise per Week: Patient declined Minutes of Exercise per Session: Patient declined Stress: Patient Declined (04/24/2024) Received from [facility] [employer] - Occupational Stress Questionnaire Feeling of Stress : Patient declined Social Connections: Patient Declined (04/24/2024) Received from [facility] Social Connection and Isolation Panel [NHANES] Frequency of Communication with Friends and Family: Patient declined Frequency of Social Gatherings with Friends and Family: Patient declined Attends Moravian Services: Patient declined Active Member of Clubs or Organizations: Patient declined Attends Club or Organization Meetings: Patient declined Marital Status: Patient declined Interpersonal Safety: Unknown (04/24/2024) Received from [facility] Humiliation, Afraid, Rape, and Kick questionnaire Fear of Current or Ex-Partner: Patient declined Emotionally Abused: Patient declined Sexually Abused: Patient declined Housing Instability: Patient Declined (04/24/2024) Received from [facility] Housing Stability Vital Sign Unable to Pay [...] from last 3 days Lab Units 06/29/2413606/28/24 190 BUN mg/dL 16 20 CREATININE mg/dL 1.46* 1.90* POTASSIUM mmol/L 3.6 3.8 CO2 mmol/L 21* 23 CHLORIDE mmol/L 111* 108 MAGNESIUM mg/dL -- 1.9 AST U/L 15 25 ALT U/L 9 16 ALK PHOS U/L 63 70 LIPASE U/L 8* -- Results from last 3 days Lab Units 06/29/2413606/28/241900 INR 1.6* 3.1* PROTIME sec 18.1* 34.3* Results from last 3 days Lab Units 06/29/2413606/28/245 06/28/241900 WBC X10E9/L 10.6 -- 13.8* HEMOGLOBIN g/dL 6.9* 7.9* 8.6* HEMATOCRIT % 20.6* 23.3* 25.7* PLATELETS X10E9/L 186 -- 252 MCV fL 94 -- 94 MCH pg 31.4 -- 31.4 MCHC g/dL 33.4 -- 33.6 RDW % 14.5 -- 15.0 EOS ABS AUTO X10E9/L 0.0 -- 0.0 Microbiology Results Procedure Component Value Units Date/Time Urine culture [[id number]] Resulted: 06/29/240 Specimen: Urine Updated: 06/29/24 033 Blood culture, peripheral #2 [[id number]] Collected: 06/28/241906 Specimen: Blood, Peripheral Draw Updated: 06/28/241913 Blood culture, peripheral #1 [[id number]] Collected: 06/28/241858 Specimen: Blood, Peripheral Draw Updated: 06/28/241913 SARS/FLU A+B/RSV by NAAT/Molecular (M4RT Collection Tube) [[id number]] Collected: 06/28/241809 Specimen: Nasopharynx Updated: 06/28/241946 FLU [...] Procedure Component Value Units Date/Time Urine culture [[id number]] Resulted: 06/29/24319 Specimen: Urine Updated: 06/29/24330 Blood culture, peripheral #2 [[id number]] Collected: 06/28/241906 Specimen: Blood, Peripheral Draw Updated: 06/28/241913 Blood culture, peripheral #1 [[id number]] Collected: 06/28/241858 Specimen: Blood, Peripheral Draw Updated: 06/28/241913 SARS/FLU A+B/RSV by NAAT/Molecular (M4RT Collection Tube) [[id number]] Collected: 06/28/241809 Specimen: Nasopharynx Updated: 06/28/241946 FLU [...] status post reversal with [employer] CKD ASSESSMENT/PLAN: Justus Loyola is a 78 y.o. year-old male s/p fall, has left renal hematoma. 1. Neuro: Sedation: None Analgesia: IV Tylenol, fentanyl, lidocaine patch 2. Cardiovascular: Cardiac Code Status: Full Code Continuous cardiac monitoring Scheduled Meds: None PRN Meds: None PMH: CAD, hypertension, hyperlipidemia, previous AK, AFib Home meds: Eliquis, Plavix 3. Resp: [...] and titration of care by critical care bell staff. Failure to do so may result in [...] MD Trauma/Surgical Critical Care 06/29/2024 10:06 AM [employer] Work Phone: 06-29-2024 Emergency department Note Pt Blood infusion rate changed to 200 ml/hr by Roxane MCGINNIS, no adverse reactions noted from pt [employer] 06-29-2024 Emergency department Note Pt Blood infusion rate changed to 200 ml/hr by Roxane MCGINNIS, no adverse reactions noted from pt Bed: 18 Expected date: Expected time: Means of arrival: Comments: T1 Pt arrives to the ED as [facility] Adult level two Trauma transfer. Pt is [...] from the original note were not included. [facility] - EMERGENCY DEPARTMENT Pt Name: Justus Loyola Birthdate: 1945 Chief Complaint: No chief complaint on file. History of Present Illness: Initial evaluation by Dr. Jaimes (attending) and Dr. Chiang (resident) at 1:30 AM 78 y.o. male patient presents to the ED via EMS as a level 2 trauma alert for evaluation of fall. Patient presented to an [facility] ER after his legs gave out and [...] much information himself. Son gave history to blood bank technician. 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 and medical records Past Medical History: Past Medical History: Diagnosis Date Coronary artery disease Dementia ([facility]) Hemorrhoids Memory loss Myocardial infarction ([facility]) Urinary tract infection Past Surgical History: No [...] Resource Strain: Patient Declined (04/24/2024) Received from [facility] Overall Financial Resource Strain (CARDIA) Difficulty of Paying Living Expenses: Patient declined Food Insecurity: No Food Insecurity (06/28/2024) Hunger Screening Food Insecurity - Worry: Never True Food Insecurity - Inability: Never True Transportation Needs: Patient Declined (04/24/2024) Received from [facility] PRAPARE - Transportation Lack of Transportation (Medical): Patient declined Lack of Transportation (Non-Medical): Patient declined Physical Activity: Patient Declined (04/24/2024) Received from [facility] Exercise Vital Sign Days of Exercise per Week: Patient declined Minutes of Exercise per Session: Patient declined Stress: Patient Declined (04/24/2024) Received from [facility] [employer] - Occupational Stress Questionnaire Feeling of Stress : Patient declined Social Connections: Patient Declined (04/24/2024) Received from [facility] Social Connection and Isolation Panel [NHANES] Frequency of Communication with Friends and Family: Patient declined Frequency of Social Gatherings with Friends and Family: Patient declined Attends Moravian Services: Patient declined Active Member of Clubs or Organizations: Patient declined Attends Club or Organization Meetings: Patient declined Marital Status: Patient declined Interpersonal Safety: Unknown (04/24/2024) Received from [facility] Humiliation, Afraid, Rape, and Kick questionnaire Fear of Current or Ex-Partner: Patient declined Emotionally Abused: Patient declined Sexually Abused: Patient declined Housing Instability: Patient Declined (04/24/2024) Received from [facility] Housing Stability Vital Sign Unable to Pay [...] with stent placed earlier this month at [facility]. CT at original facility demonstrated postop changes [...] team was at bedside in the [facility] [place] at time of patient's arrival. Additional labs [...] medical care of the patient. Additional Notes/Findings: Justus Loyola is a 78 y.o. male patient [...] Attestation: Dr. Fiona Herrera personally performed a [id number] diagnostic evaluation on this patient. I have [...] Do, MD at 06/30/2024 6:33 AM EST Justus Loyola (: 45) - Level [address] Schwarz, Fall / Renal Lac 78M, Hx: Afib on Eliquis. Patient had recent lithotripsy with stent earlier this month (at [facility]). CT showing post-op changes left kidney, active extravasation. Dr. Schwarz reviewed CT. It was a ground level fall onto his left side, also striking his face. [facility] to reverse his Eliquis before sending patient. Vitals: 108/44, HR 78, RR 22, 98% on RA. 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 Pt is alert, and oriented and able to answer questions appropriately. Pt arrive with bilateral IVS, and a jorgensen catheter in place. Pt was upgraded to adult level 1 trauma by Trauma Team on arrival. Pt hypotensive on arrival. [facility] 06-29-2024 Emergency department Note Chest xray obtained at this time [facility] 06-29-2024 Emergency department Note EMS stretcher to bed [facility] 06-29-2024 Emergency department Note Pt arrived to ED T1 [facility] 06-29-2024 Physician Emergency department Note Images from the original note were not included. [facility] - EMERGENCY DEPARTMENT Pt Name: Justus Loyola Birthdate: 1945 Chief Complaint: No chief complaint on file. History of Present Illness: Initial evaluation by Dr. Jaimes (attending) and Dr. Chiang (resident) at 1:30 AM 78 y.o. male patient presents to the ED via EMS as a level 2 trauma alert for evaluation of fall. Patient presented to an [facility] ER after his legs gave out and [...] much information himself. Son gave history to blood bank technician. 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 and medical records Past Medical History: Past Medical History: Diagnosis Date Coronary artery disease Dementia (CMS-HCC) Hemorrhoids Memory loss Myocardial infarction (CMS-HCC) Urinary tract infection Past Surgical History: No [...] Resource Strain: Patient Declined (04/24/2024) Received from [facility] Overall Financial Resource Strain (CARDIA) Difficulty of Paying Living Expenses: Patient declined Food Insecurity: No Food Insecurity (06/28/2024) Hunger Screening Food Insecurity - Worry: Never True Food Insecurity - Inability: Never True Transportation Needs: Patient Declined (04/24/2024) Received from [facility] TA - Transportation Lack of Transportation (Medical): Patient declined Lack of Transportation (Non-Medical): Patient declined Physical Activity: Patient Declined (04/24/2024) Received from [facility] Exercise Vital Sign Days of Exercise per Week: Patient declined Minutes of Exercise per Session: Patient declined Stress: Patient Declined (04/24/2024) Received from [facility] [employer] - Occupational Stress Questionnaire Feeling of Stress : Patient declined Social Connections: Patient Declined (04/24/2024) Received from [facility] Social Connection and Isolation Panel [NHANES] Frequency of Communication with Friends and Family: Patient declined Frequency of Social Gatherings with Friends and Family: Patient declined Attends Moravian Services: Patient declined Active Member of Clubs or Organizations: Patient declined Attends Club or Organization Meetings: Patient declined Marital Status: Patient declined Interpersonal Safety: Unknown (04/24/2024) Received from [facility] Humiliation, Afraid, Rape, and Kick questionnaire Fear of Current or Ex-Partner: Patient declined Emotionally Abused: Patient declined Sexually Abused: Patient declined Housing Instability: Patient Declined (04/24/2024) Received from [facility] Housing Stability Vital Sign Unable to Pay [...] with stent placed earlier this month at [facility]. CT at original facility demonstrated postop changes [...] team was at bedside in the [facility] [place] at time of patient's arrival. Additional labs [...] loss anemia Shared Visit: 01:34 Ernesto BAKER (arun) scribed for and in the presence of Dr. Jaimes who performed the above service. The doctor personally saw and evaluated the patient. The doctor discussed the management with the JUAN/Resident. The doctor reviewed the JUAN/Resident note, approved the management plan for this patient and takes responsibility for the medical care of the patient. Additional Notes/Findings: Justus Loyola is a 78 y.o. male patient [...] ED Disposition None ED Prescriptions None Scribe Abigail Herrera Dr. Do personally performed the services described in the documentation, as scribed by Ernesto Noel in my presence, and it is both accurate and complete. Resident Attestation: I, Dr. Jaimes personally performed a [id number] diagnostic evaluation on this patient. I have [...] Do, MD at 06/30/2024 6:33 AM EST [facility] 06-29-2024 Emergency department Note Justus Loyola (: 45) - Level [address] Schwarz, Fall / Renal Lac 78M, Hx: Afib on Eliquis. Patient had recent lithotripsy with stent earlier this month (at [facility]). CT showing post-op changes left kidney, active extravasation. Dr. Schwarz reviewed CT. It was a ground level fall onto his left side, also striking his face. [place] to reverse his Eliquis before sending patient. Vitals: 108/44, HR 78, RR 22, 98% on RA. 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 [...] oriented but occasionally forgetful [facility]24 Emergency department Note Bed: T1 Expected date: Expected time: [facility] arrival: [facility] Comments: 78 y/o male A&Ox4 [place] Level 2 trauma transfer HR 65 97% RA RR 16 95/49 500mL bolus initiated by EMS ETA 10 [facility] 06-19-2024 Note [facility] 06-19-2024 Note [facility] 05-21-2024 Note [facility] 05-21-2024 Note [facility] 04-24-2024 Note [facility] 04-24-2024 Note [facility] 04-19-2024 Note [facility] 04-02-2024 Note [facility] 04-02-2024 Note [facility] 03-13-2024 Note [facility] 03-06-2024 Note [facility] 03-06-2024 Note [facility] 03-06-2024 Note [facility] 03-06-2024 Note [facility] 03-05-2024 Note [facility] 03-05-2024 Note [facility] 03-05-2024 Note [facility] 03-05-2024 Note [facility] 03-05-2024 Note [facility] 03-04-2024 Note [facility] 03-04-2024 Note [facility] 03-04-2024 Note Physical Therapy PM Cancellation note Monday03/04/2024 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 Attempted time : 14:08-14:10 [facility] 03-04-2024 Note [facility] 03-04-2024 Note [facility] 03-04-2024 Note [facility] 03-03-2024 Note [facility] 03-03-2024 Note Sent updates to Lino conn at the [place]. [facility] 03-02-2024 Note [facility] 03-02-2024 Note [facility] 03-02-2024 Note [facility] 03-02-2024 Note [facility] 03-01-2024 Note [facility] 03-01-2024 Note [facility] 03-01-2024 Note [facility] 03-01-2024 Note [facility] 02-29-2024 Note [facility] 02-29-2024 Note [facility] 02-29-2024 Note [facility] 02-29-2024 Note [facility] 02-29-2024 Note [facility] 02-29-2024 Note [facility] 02-29-2024 Note [facility] 02-28-2024 Note [facility] 02-28-2024 Note [facility] 02-28-2024 Note Physical Therapy Patient medically unstable, not appropriate for PT evaluation. Will follow up and evaluate as appropriate. Kuldeep Garces PT, DPT [facility] 02-28-2024 Note Occupational Therapy Name: Justus Loyola Date of : 1945 Today's Date: 02/28/24 Pt is unable to be seen for therapy at this time secondary to Medically unstable per nsg . Check No Charge Time attempted: 908 [facility] 02-28-2024 Note Discharge Planning U pdate: 0906 Attempted to see patient but was unsuccessful as patient is currently having severe difficulty breathing & talking so they may possible be intubated soon if needed. OTM to follow. [facility] 02-28-2024 Note [facility] 02-28-2024 Note [facility] 02-27-2024 Note [facility] 02-27-2024 Note [facility] 02-27-2024 Note [facility] 02-27-2024 Note [facility] 02-26-2024 Note [facility] 02-26-2024 Note [facility] 02-09-2024 Note [facility] 01-10-2024 Note [facility] 01-10-2024 Note [facility] Evaluation + Plan note No data available for this section [facility] Evaluation note No assessment information [facility] Work Phone: Evaluation note Diagnosis Fall in home, initial encounter- Primary Fall in home, initial encounter Acute blood loss anemia Acute posthemorrhagic anemia documented in this [facility] No data available for this section [facility] InstructionsNot on filedocumented in this encounter [facility] No data available for this section [facility] Summary Purpose Family History No Family [...] May 15, 2024 End: May 15, 2024 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 Start Date End Date Mere Garcia APRN-CNP [address] [place] [address] PCP - General Family Medicine 02/22/24 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 Start Date End Date Mere Garcia APRN-CNP [address] [place] [address] PCP - General Family Medicine 02/22/24 Team Status: Inactive Member Role Status Dates Kelvin Langston MD Attending Provider Active Start: August 29, 2024 End: August 29, 2024 (unrecognized sect ion and content) No Status Records FoundNo Status Records FoundNo Status Records FoundNo Status Records FoundNo Status Records Found INFORMATION SOURCE (unrecogn ized section and content) DATE CREATED AUTHOR 01/03/2024 [facility] DATE CREATED AUTHOR AUTHOR'S ORGANIZ ATION 07/17/2024 [facility] DATE CREATED AUTHOR AUTHOR'S ORGANIZ ATION 08/10/2024 [facility] DATE CREATED AUTHOR AUTHOR'S ORGANIZ ATION 09/01/2024 [facility] DATE CREATED AUTHOR AUTHOR'S ORGANIZ ATION 12/23/2024 [facility] Goals (unrecognized section and content) Goals may be documented in a n alternate section Reason for Visit (unrecogniz ed section and content) Reason Comments Trauma Specialty Diagnoses / Procedures Referred By [facility] t Referred To Contact Diagnoses Fall in home, initial encounter Ru Schwarz MD [address] [place] [address] Phone: tel: fax: Referral ID Status Reason Start Date Expiration Date Visits Re quested Visits Authorized [id number] 1 Reason Onset Date Comments Blood in Urine 07/05/2024 Scheduled Active and Recently Administ ered Medications (unrecognized section and content) Medication Order 07/02/2024 07/03/2024 07/04/2024 amiodarone (PACERONE) tablet 200 mg 200 mg, oral, 2 times daily, First dose on Mon06/29/24 at 2100, Look-alike/sound-alike medication - verify indication for use. 0829 (Given - Provider: Kaylah Maxwell RN)2122 (Given - Provider: Jazmín Hansen RN) 902 (Given - Provider: Randolph Laguerre, RAS)2058 (Given - Provider: Zelda Vasquez, RAS) 100 (Given - Provider: Arjun Buchanan, RAS) apixaban (ELIQUIS) tablet 5 mg 5 mg, oral, 2 times daily, First dose on Mon07/02/24 at 1015, Indication: Nonvalvular Atrial Fibrillation (NVAF) 1157 (Given - Provider: Kaylah Maxwell RN)2122 (Given - Provider: Jazmín Hansen RN) 902 (Given - Provider: Randolph Laguerre, RAS)2057 (Given - Provider: Zelda Vasquez, RAS) 100 (Given - Provider: Arjun Buchanan, RAS) atorvastatin (LIPITOR) tablet 80 mg 80 mg, oral, Nightly, First dose on Mon06/29/24 at 2200, Look-alike/sound-alike medication - verify indication for use. 2122 (Given - Provider: Jazmín Hansen RN) 2100 (Given - Provider: Zelda Vasquez, RAS) carvediloL (COREG) tablet 3.125 mg 3.125 mg, oral, 2 times daily, First dose on Mon07/02/24 at 1015, Give with meal or snack. Look-alike/sound-alike medication - verify indication for use. 1157 (Given - Provider: Kaylah Maxwell, RAS)2122 (Given - Provider: Jazmín Hansen RN) 902 (Given - Provider: Randolph Laguerre RN)2057 (Given - Provider: Zelda Vasquez, RAS) 100 (Given - Provider: Arjun Buchanan RN) clopidogreL (PLAVIX) tablet 75 mg 75 mg, oral, Daily, First dose on Mon07/03/24 at 1115, Look-alike/sound-alike medication - verify indication for use. 1214 (Given - Provider: Randolph Laguerre RN) 1003 (Given - Provider: Arjun Buchanan, RN) famotidine (PEPCID) tablet 20 mg 20 mg, [...] over 2 minutes., Indication: Stress Ulcer Prophylaxis 08 (Given - Provider: Kaylah Maxwell RN) 09 (Given - Provider: Randolph Laguerre RN) 1003 (Given - Provider: Arjun Buchanan, RAS) insulin lispro (HumaLOG) injection 2-10 Units 2-10 [...] PM 0900 (Not Given - Provider: Arjun Buchanan RN - Reason: Patient/family refused) memantine (NAMENDA) tablet 10 mg 10 mg, oral, 2 times daily, First dose on 06/29/24 at 2100 0829 (Given - Provider: Kaylah Maxwell RN)2123 (Given - Provider: Jazmín Hansen RN) 0904 (Given - Provider: Randolph Laguerre RN)2057 (Given - Provider: Zelda Vasquez RN) 1003 (Given - Provider: Arjun Buchanan RN) polyethylene glycol (GLYCOLAX) packet 17 g (CANCELED) 17 g, oral, Daily, First dose on 06/29/24 at 0900, ED to IP Admission, Look-alike/sound-alike medication - verify indication for use. Dissolve 1 packet (17 gm) in 8 ounces of water, juice, soda, coffee or tea. 08 (Given - Provider: Kaylah Maxwell RN) 09 (Given - Provider: Randolph Laguerre, RAS - Comment: multiple stools) polyethylene glycol (GLYCOLAX) packet 17 g 17 g, oral, 2 times daily, First dose (after last modification) on Mon07/03/24 at 2100, ED to IP Admission, Look-alike/sound-alike medication - verify indication for use. Dissolve 1 packet (17 gm) in 8 ounces of water, juice, soda, coffee or tea. 2057 (Given - Provider: Zelda Vasquez, RAS) 100 (Given - Provider: Arjun Bucahnan, RAS) sennosides-docusate sodium (SENOKOT-S) 8.6-50 mg 2 tablet 2 tablet, oral, 2 times daily, First dose on 06/29/24 at 0900, ED to IP Admission 0829 (Given - Provider: Kaylah Maxwell RN)2122 (Given - Provider: Jazmín Hansen RN) 09 (Given - Provider: Randolph Laguerre, RAS)2057 (Given - Provider: Zelda Vasquez, RAS) 100 (Given - Provider: Arjun Buchanan, RN) sodium chloride 0.9 % flush 3 mL 3 mL, intravenous, Every 12 hours scheduled, First dose on 06/29/24 at 0900, ED to IP Admission 0830 (Given - Provider: Kaylah Maxwell, RAS)2122 (Given - Provider: Jazmín Hansen RN) 09 (Given - Provider: Randolph Laguerre, RAS)2057 (Given - Provider: Zelda Vasquez, RAS) 09 (Given - Provider: Arjun Buchanan, RN) spironolactone (ALDACTONE) tablet 12.5 mg 12.5 mg, oral, Nightly, First dose on Mon07/02/24 at 2199 2122 (Given - Provider: Jazmín Hansen, RN) 2100 (Given - Provider: Zelda Vasquez, RAS) PRN Medication Order 07/02/2024 07/03/2024 07/04/2024 acetaminophen (TYLENOL EXTRA STRENGTH) tablet 1,000 mg 1,000 mg, oral, Every 6 hours PRN, mild pain - pain scale 1-3, headaches, temperature greater than 38 C, moderate pain - pain scale 4-6, Starting on Tu07/02/24 at 1008 calcium gluconate 3,000 mg in [...] VESICANT (RED) Warning: HYPERTONIC solution. flu vacc [id number] 6mos up(PF) (FLULAVAL/FLUZONE/FLUARIX TRIV) injection syringe 0.5 [...] BE BASED ON THE PRIMARY CLINICAL RECORDS. [facility]. provides no warranty or guarantee of the accuracy or completeness of information in this document.
[2025-01-02 17:45] LABS: Anion Gap 11.7; Blood Urea Nitrogen 14.0 mg/dL (7.0-18.0); Calcium 9.0 mg/dL (8.5-10.1); Carbon Dioxide 30.3 mmol/L (21.0-32.0); Chloride 108 mmol/L (98-107); Estimated GFR (African America 38 (>=60 mL/min/1.73m^2); Estimated GFR (Non-African Ame 31 (>=60 mL/min/1.73m^2); Glucose 116 mg/dL (74-106); Potassium 3.0 mmol/L (3.5-5.1); Sodium 147 mmol/L (136-145)
== END 2025-01-02 16:12 | disposition home or self-care (01) ==
LOC: LAB 16:13
PROVIDERS: PCP Family Medicine; Visit Provider Internal Medicine Interventional Cardiology
DX: I50.21 Acute systolic (congestive) heart failure (principal)
CPT/HCPCS: 36415; 80048

== ENCOUNTER 2025-01-08 08:45 | Outpatient (OUT) | payer MEDICARE, SELFPAY ==
--- OUTSIDE RECORDS SUMMARY | 2024-12-08 17:28 | XMS_ITS ---
Author Organization [facility] [place] Address [address] [place] [address] Care Team Providers Care Marquetry Worker Name Role Phone Mere Gerber Primary Care Provider [phone] Layton Oconnell Unavailable [phone] REASON FOR VISIT er update Encounters Encounter Location Date Provider Diagnosis [facility] [address] [facility] [address] 12/08/2024 Layton Oconnell Plan Of Treatment No Information Progress Notes * Neptali LOYOLADOB:1945 (79 yo M)Acc No.[id number]:12/08/2024 Patient: Neptali TORREZ :1945 A ge:79 Y S ex:Male Address:[address] [place], [address] * true * Date: Generated for Diego culp/Serina/eTransmitting on: 0 01/08/2025 08:47 AM EDT
--- OUTSIDE RECORDS SUMMARY | 2024-12-18 08:45 | XMS_ITS ---
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) Active confirmed Encounters Encounter Location Date Provider Diagnosis [facility] [address] [place] [address] 12/18/2024 Layton Oconnell Intermittent claudic ation of lower extremity due to atherosclerosis I70.219 Assessments Encounter Date Diagnosis (ICD Code) Assessment Notes Treatment Notes Treatment Clinical Notes Section Notes 12/18/2024 Intermittent claudication of lower extremity due to atherosclerosis (ICD-10 - I70.219) Plan Of Treatment Medication Medication Name Sig Start Date Stop Date Notes Ferrous Sulfate 325 (65 Fe) MG 1 tablet Orally daily for 30 days 12/19/2024 Pending Test Test Name Order Date US NATACHA DOP LEG SYLVIE 12/18/2024 Progress Notes * Neptali LOYOLADOB:1945 (79 yo M)Acc No.[id number]:12/18/2024 Patient: Delaney LAFLEURNeptali CORRAL :1945 A ge:79 Y S ex:Male Address:[address] [place], [address] * Refills Start Ferrous Sulfate Tablet, 325 (65 Fe) MG, Orally, 30 Tablet, 1 tablet, daily, 30 days, Refills=11 Subjective: * Chief Complaints: * L ab results- * Medical History: * Surgical History: * Hospitalization/Major Diagno stic Procedure: * Medications: Objective: * Vitals: * Physical Examination: Assessment: * Assessment: 1. I ntermittent claudication of lower extremity due to atherosclerosis - I70.219 (Primary)? Plan: * Treatment: 2. O thers Start Ferrous Sulfate Tablet, 325 (65 Fe) MG, 1 tablet, Orally, daily, 30 days, 30 Tablet, Refills 11. * Procedure Codes: * true * Date: Generated for Diego culp/Serina/Rachael on: 0 01/08/2025 08:48 AM EDT
--- OUTSIDE RECORDS SUMMARY | 2025-01-03 08:52 | XMS_ITS ---
Author Organization [facility] in [place] Address [address] [place] [address] Care Team Providers Care Customs Port Director Name Role Phone Mere Gerber Primary Care Provider [phone] Prasanth Layton Oconnell Unavailable [phone] REASON FOR VISIT labs Medications Medication SIG (Take, Route, Frequency, Duration) Notes Start Date End Date Status Potassium Chloride 10 MEQ 1 packet with food Orally Twice a day for 30 days 01/03/2025 Active Encounters Encounter Location Date Provider Diagnosis [facility] [address] [place] [address] 01/03/2025 Layton Oconnell Plan Of Treatment Medication Medication Name Sig Start Date Stop Date Notes Potassium Chloride 10 MEQ 1 packet with food Orally Twice a day for 30 days 01/03/2025 Progress Notes * Neptali LOYOLADOB:1945 (79 yo M)Acc No.[id number]:01/03/2025 Patient: Delaney WALKER Edluis armando :1945 A ge:79 Y S ex:Male Address:[address] [place], [address] * Refills Start Potassium Chloride Packet, 10 MEQ, Orally, 60, 1 packet with food, Twice a day, 30 days, Refills=11 * true * Date: Generated for Diego culp/Serina/eTransmitting on: 0 01/08/2025 08:48 AM EDT
--- OUTSIDE RECORDS SUMMARY | 2025-01-08 08:48 | XMS_ITS | Patient Health Record ---
Author Organization [facility] in [place] Address [address] [place] [address] Care Team Providers Care Liquor Department Manager Name Role Phone Mere Gerber Primary Care Provider [phone] Khalifhoward Layton Unavailable [phone] Allergies No Known Allergies Results Component Value Reference Range Notes CBC AUTO DIFF Reviewed date:06/17/2024 09:02:32 PM Interpretation: Performing Lab: Notes/Report: [facility] , White Blood Count 5.1 4.0-11.0 [...] - The [facility] LB MAGNESIUM Reviewed date:11/18/2024 12:51:13 PM Interpretation: Performing Lab: Notes/Report: [facility] , Magnesium 2.2 1.8-2.4 mg/dL Performing Lab: see note ML - [facility] LB PROF CHEM 8 (BAS METB) Reviewed date:11/18/2024 12:51:13 PM Interpretation: Performing Lab: Notes/Report: [facility] , Sodium 148 136-145 mmol/L Potassium [...] mg/dL Performing Lab: see note ML - [facility] LB CBC AUTO DIFF Reviewed date:12/08/2024 09:29:11 PM Interpretation: Performing Lab: Notes/Report: [facility] , White Blood Count 5.5 4.0-11.0 [...] 10 3/uL Performing Lab: see note - [facility] PROF CHEM 8 (Heverest.ru METB) Reviewed date:12/08/2024 09:29:11 PM Interpretation: Performing Lab: Notes/Report: [facility] , Sodium 140 136-145 mmol/L Potassium [...] 8.5-10.1 mg/dL Performing Lab: see note - [facility] LB PROF CHEM 8 (Heverest[employer]ru METB) Reviewed date:01/03/2025 12:52:58 PM Interpretation: Performing Lab: Notes/Report: [facility] , Sodium 147 136-145 mmol/L Potassium 3.0 3.5-5.1 mmol/L Chloride 108 98-107 mmol/L Carbon Dioxide 30.3 21.0-32.0 mmol/L Anion Gap 11.7 Glucose 116 74-106 mg/dL Blood Urea Nitrogen 14.0 7.0-18.0 mg/dL Creatinine 2.08 0.70-1.30 mg/dL Estimated GFR ( Katie 38 >=60 mL/min/1.73m 2 Estimated GFR (Non- Rhea 31 >=60 mL/min/1.73m 2 BUN Creatinine Ratio 6.7 Calcium 9.0 8.5-10.1 mg/dL Performing Lab: see note ML - [facility] LB BNP Reviewed date:12/08/2024 09:29:11 PM Interpretation: Performing Lab: Notes/Report: [facility] , NT Pro B Type Natriuretic Pept 606.0 <=1800.0 pg/mL Performing Lab: see note - [facility] PROF CHEM 8 (BAS METB) Reviewed date:11/25/2024 06:09:50 PM Interpretation: Performing Lab: Notes/Report: [facility] , Sodium 140 136-145 mmol/L Potassium [...] mg/dL Performing Lab: see note ML - [facility] LB BNP Reviewed date:11/25/2024 06:09:50 PM Interpretation: Performing Lab: Notes/Report: [facility] , NT Pro B Type Natriuretic Pept 268.0 <=1800.0 pg/mL Performing Lab: see note ML - [facility] LB XR chest 2V Reviewed date:11/18/2024 12:51:13 PM Interpretation: Performing Lab: Notes/Report: Source Facility: [facility] [place] [address] [address] XRay Report Signed Patient: JUSTUS LOYOLA MR#: [id number] : 1945 Acct:[id number] Age/Sex: 79 / M ADM Date: 11/18/24 Loc: LAB Attending Dr: RANDOLPH PROCTOR APRN Ordering Physician: RANDOLPH PROCTOR APRN Date of Service: 11/18/24 Procedure(s): XR chest 2V Accession Number(s): [id number] cc: Kashmir Oconnell M.D.; RANDOLPH PROCTOR APRN [address] [address] Patient Name: JUSTUS LOYOLA MRN: [id number] date: 1945 Sex: M Assigned Patient Location: LAB Current Patient Location: LAB Accession/Order Number: [id number] Exam Date: 11/18/2024 10:51 Report Date: 11/18/2024 10:56 At the request of: RANDOLPH PROCTOR APRN Procedure: XR chest 2V PA AND LATERAL CHEST: CLINICAL HISTORY: Skilled Nursing Currents Use Of Amiodarone COMPARISON: 12/11/2023 There [...] Galeana M.D. 11/18/2024 10:56 AM Dictation Location: [place] [address] Electronically authenticated by: [id number] Y Date: 11/18/2024 10:56 Dictated By: Katy Galeana M.D. Signed By: 11/18/24 1058 DD/ 1056 TD/TT: Photographic Processor: [address] [address] XRay Report Signed Patient: AI LOYOLA RD MR#: [id number] : 1945 Acct:[id number] Age/Sex: 79 / M ADM Date: 11/18/24 Loc: LAB Attending Dr: NAYA PROCTOR APRN Ordering Physician: RANDOLPH PROCTOR APRN Date of Service: 11/18/24 Procedure(s): XR zbigniew st 2V Accession Number(s): [id number] cc: Kashmir Oconnell M.D. ; RANDOLPH PROCTOR APRN [address] [address] Patient Name: JUSTUS LOYOLA MRN: [id number] date: 1945 Sex: M Assigned Patient Location: LAB Current Patient Location: LAB Accession/Order Numb er: [id number] Exam Date: 11/18/2024 10:51 Report Date: 11/18/2024 [...] Galeana M.D. 11/18/2024 10:56 AM Dictation Location: [place] [address] Electronically authenticated by: [id number] Y Date: 11/18/2024 10:56 Dictated By: Katy Galeana M.D. Signed By: 11/18/24 1058 DD/ 1056 TD/TT: Photographic Processor: PROF ELY 8 ([facility]) Reviewed date:11/11/2024 09:21:35 PM Interpretation: Performing Lab: Notes/Report: [facility] , Sodium 144 136-145 mmol/L Potassium 2.6 3.5-5.1 mmol/L RESULTS SANDOVAL D TO DR. GREGORY FROM [place] Chloride 104 98-107 mmol/L Carbon Dioxide 33.0 21.0-32.0 mmol/L Anion Gap 9.6 Glucose 94 74-106 mg/dL Blood Urea Nitrogen 24.0 7.0-18.0 mg/dL Creatinine 1.89 0.70-1.30 mg/dL Estimated GFR ( Katie 42 >=60 mL/min/1.73m 2 Estimated GFR (Non- Rhea 35 >=60 mL/min/1.73m 2 BUN Creatinine Ratio 12.7 Calcium 9.3 8.5-10.1 mg/dL Performing Lab: see note ML - [facility] LB BNP Reviewed date:11/11/2024 09:21:35 PM Interpretation: Performing Lab: Notes/Report: [facility] , NT Pro B Type Natriuretic Pept 360.0 <=1800.0 pg/mL Performing Lab: see note ML - [facility] LB Urine Culture - [facility] Reviewed date:09/02/2024 08:08:46 PM Interpretation: Performing Lab: Notes/Report: [facility] , Urine Culture - [facility] See Below For Report Urine Culture - [facility] <9,000 colonies/ml mixed Urine Culture - [facility] bacterial skin contaminants Urine Culture - [facility] <9,000 colonies/ml mixed Urine Culture - [facility] 2 Days Urine Culture - [facility] <9,000 colonies/ml mixed Urine Culture - [facility] Urine Culture - [facility] <9,000 colonies/ml mixed Urine Culture - [facility] Testing performed a [facility] Urine Culture - [facility] <9,000 colonies/ml mixed Urine Culture - [facility] [address] [place] [address] Urine Culture - [facility] <9,000 colonies/ml mixed Performing Lab: see note ML - [facility] LB Prothrombin Time INR Reviewed date:08/28/2024 08:07:13 PM Interpretation: Performing Lab: Notes/Report: [facility] , Prothrombin Time 11.8 9.0-11.6 sec INR 1.13 DESIRED INR: 2.0-3.0 CONDITIONS NOT LISTED BELOW 2.5-3.5 FOR PROSTHETIC HEART VALVE REPLACEMENT 2.5-3.5 RECURRENT THROMBOSIS Performing Lab: see note ML - [facility] LB TSH Reviewed date:08/28/2024 08:07:13 PM Interpretation: Performing Lab: Notes/Report: [facility] , Thyroid Stimulating Hormone 2.655 0.358-3.740 uIU/mL Performing Lab: see note ML - [facility] LB PTT Reviewed date:08/28/2024 08:07:13 PM Interpretation: Performing Lab: Notes/Report: [facility] , Partial Thromboplastin Time 24.4 22.3-36.2 sec Performing Lab: see note ML - [facility] PROF 14(COMP METB) Reviewed date:08/28/2024 08:07:13 PM Interpretation: Performing Lab: Notes/Report: [facility] , Sodium 145 136-145 mmol/L Potassium [...] 0.7 Performing Lab: see note ML - [facility] LB FREE T4 Reviewed date:08/28/2024 08:07:13 PM Interpretation: Performing Lab: Notes/Report: [facility] , Free T4 1.46 0.76-1.46 ng/dL Performing Lab: see note ML - [facility] LB CBC AUTO DIFF Reviewed date:08/28/2024 08:07:13 PM Interpretation: Performing Lab: Notes/Report: [facility] , White Blood Count 6.5 4.0-11.0 [...] - [facility] LB ITP Reviewed date:07/03/2024 07:44:10 PM Interpretation: Performing Lab: Notes/Report: Source Facility: [facility] [place] [address] [place] [address] Cardiac Rehab Report Signed Patient: JUSTUS LOYOLA MR#: [id number] : 1945 Acct:[id number] Age/Sex: 78 / M ADM Date: 05/16/24 Loc: CR Attending Dr: MERE GERBER Ordering Physician: Rey Antoine D.O. Date of Service: 07/02/24 Procedure(s): ITP Accession Number(s): [id number] cc: [facility] Test Date: 2024-07-02 Pat Name: JUSTUS LOYOLA Department: Room: - Gender: Male Returns Supervisor: : 1945 Requested By: REY ANTOINE Order Number: [id number] Reading MD: REY ANTOINE Interpretive Statements Session Date: Electronically Signed On 07-03-2024 7:14:14 EST by REY ANTOINE Dictated By: Rey Antoine D.O. Signed By: 07/03/2471307/03/24713 DD/ 0806 TD/TT: Photographic Processor: [place] [address] Cardiac Rehab Report Signed Patient: AI LOYOLA RD MR#: [id number] : 1945 Acct:[id number] Age/Sex: 78 / M ADM Date: 05/16/24 Loc: CR Attending Dr: MERE GERBER Ordering Physician: Rey Antoine D.O. Date of Service: 07/02/24 Procedure(s): ITP Accession Number(s): [id number] cc: [facility] Test Date: 2024-07-02 Pat Name: JUSTUS CORRAL Department: 22 Room: - Gender: Male Returns Supervisor: : 1945 Requested By: REY ANTOINE Order Number: [id number] Reading MD: REY ANTOINE Interpretive Statements Session Date: Electronically Ioana d On 07-03-2024 7:14:14 EST by REY ANTOINE Dictated By: Rey Antoine D.O. Signed By: 07/03/2471307/03/24713 DD/ 0806 TD/TT: Photographic Processor: Prothrombin Time INR Reviewed date:06/17/2024 09:02:32 PM Interpretation: Performing Lab: Notes/Report: [facility] , Prothrombin Time 12.1 9.0-11.6 sec INR 1.16 DESIRED INR: 2.0-3.0 CONDITIONS NOT LISTED BELOW 2.5-3.5 FOR PROSTHETIC HEART VALVE REPLACEMENT 2.5-3.5 RECURRENT THROMBOSIS Performing Lab: see note - [facility] LB PTT Reviewed date:06/17/2024 09:02:32 PM Interpretation: Performing Lab: Notes/Report: [facility] , Partial Thromboplastin Time 29.1 22.3-36.2 sec Performing Lab: see note - [facility] PROF 14(COMP METB) Reviewed date:06/17/2024 09:02:32 PM Interpretation: Performing Lab: Notes/Report: [facility] , Sodium 141 136-145 mmol/L Potassium [...] 0.8 Performing Lab: see note ML - [facility] LB Box Test Reviewed date:05/19/2024 08:32:40 PM Interpretation: Performing Lab: Notes/Report: URINE CULTURE [facility] , BOX Test Sent Out URINE CULTURE BOX Test Reference Lab [facility] BOX Test Date Sent 05/14/24 BOX Test Result SEE SCANNED REPORT Performing Lab: see note - [facility] LB ITP Reviewed date:05/15/2024 03:40:58 PM Interpretation: Performing Lab: Notes/Report: Source Facility: [place] [address] [place] [address] Cardiac Rehab Report Signed Patient: JUSTUS LOYOLA MR#: [id number] : 1945 Acct:[id number] Age/Sex: 78 / M ADM Date: 05/13/24 Loc: CR Attending Dr: MERE GERBER Ordering Physician: eRy Antoine D.O. Date of Service: 05/13/24 Procedure(s): ITP Accession Number(s): [id number] cc: [facility] Test Date: 2024-05-13 Pat Name: JUSTUS LOYOLA Department: Room: - Gender: Male Returns Supervisor: : 1945 Requested By: REY ANTOINE Order Number: [id number] Tera MD: REY ANTOINE Interpretive Statements Session Date: Electronically Signed On 05-15-2024 8:06:17 EST by REY ANTOINE Dictated By: Rey Antoine D.O. Signed By: 05/15/24 0806 05/15/24 0806 DD/ 1527 TD/TT: Photographic Processor: [place] [address] Cardiac Rehab Report Signed Patient: AI LOYOLA RD MR#: [id number] : 1945 Acct:[id number] Age/Sex: 78 / M ADM Date: 05/13/24 Loc: CR Attending Dr: MERE GERBER Ordering Physician: Rey Antoine D.O. Date of Service: 05/13/24 Procedure(s): ITP Accession Number(s): [id number] cc: [facility] Test Date: 2024-05-13 Pat Name: JUSTUS CRORAL Department: 22 Room: - Gender: Male Returns Supervisor: : 1945 Requested By: REY ANTOINE Order Number: [id number] Reading MD: REY ANTOINE Interpretive Statements Session Date: Electronically Ioana d On 05-15-2024 8:06:17 EST by REY ANTOINE Dictated By: Rey Antoine D.O. Signed By: 05/15/2480505/15/24805 DD/ 1527 TD/TT: Photographic Processor: Prothrombin Time INR Reviewed date:05/13/2024 08:38:16 PM Interpretation: Performing Lab: Notes/Report: [facility] , Prothrombin Time 12.4 9.0-11.6 sec INR 1.19 DESIRED INR: 2.0-3.0 CONDITIONS NOT LISTED BELOW 2.5-3.5 FOR PROSTHETIC HEART VALVE REPLACEMENT 2.5-3.5 RECURRENT THROMBOSIS Performing Lab: see note ML - [facility] LB PTT Reviewed date:05/13/2024 08:38:16 PM Interpretation: Performing Lab: Notes/Report: [facility] , Partial Thromboplastin Time 30.5 22.3-36.2 sec Performing Lab: see note [facility] LB PROF 14(COMP METB) Reviewed date:05/13/2024 08:38:16 PM Interpretation: Performing Lab: Notes/Report: [facility] , Sodium 146 136-145 mmol/L Potassium [...] 0.8 Performing Lab: see note ML - [facility] LB CBC AUTO DIFF Reviewed date:05/13/2024 08:38:16 PM Interpretation: Performing Lab: Notes/Report: [facility] , White Blood Count 6.6 4.0-11.0 [...] 3/uL Performing Lab: see note ML - [facility] LB COVID-19, Flu A+B IH Reviewed date:04/03/2024 08:35:47 PM Interpretation: Performing Lab: Notes/Report: COVID - FLU A - FLU B - Control + PROF CHEM 8 (BAS METB) Reviewed date:12/18/2024 12:46:37 PM Interpretation: Performing Lab: Notes/Report: [facility] , Sodium 145 136-145 mmol/L Potassium 3.4 [...] mg/dL Performing Lab: see note ML - [facility] LB CBC AUTO DIFF Reviewed date:12/18/2024 12:46:37 PM Interpretation: Performing Lab: Notes/Report: [facility] , White Blood Count 4.9 4.0-11.0 10 [...] 3/uL Performing Lab: see note ML - [facility] LB Prothrombin Time INR Reviewed date:04/03/2024 08:35:47 PM Interpretation: Performing Lab: Notes/Report: [facility] , Prothrombin Time 11.9 9.0-11.6 sec INR 1.14 DESIRED INR: 2.0-3.0 CONDITIONS NOT LISTED BELOW 2.5-3.5 FOR PROSTHETIC HEART VALVE REPLACEMENT 2.5-3.5 RECURRENT THROMBOSIS Performing Lab: see note - [facility] LB PTT Reviewed date:04/03/2024 08:35:47 PM Interpretation: Performing Lab: Notes/Report: [facility] , Partial Thromboplastin Time 29.2 22.3-36.2 sec Performing Lab: see note [facility] LB PROF 14(COMP METB) Reviewed date:04/03/2024 08:35:47 PM Interpretation: Performing Lab: Notes/Report: [facility] , Sodium 145 136-145 mmol/L Potassium [...] Ratio 0.7 Performing Lab: see note - [facility] LB CBC AUTO DIFF Reviewed date:04/03/2024 08:35:47 PM Interpretation: Performing Lab: Notes/Report: [facility] , White Blood Count 5.6 4.0-11.0 [...] - [facility] LB Reason For Referral No Information Medications Medication SIG (Take, Route, Frequency, Duration) Notes Start Date End Date Status Bumetanide 1 MG 1 tablet Orally twic e daily for 30 days 11/27/2024 Active Potassium Chloride 10 MEQ 1 packet with food Orally Twice a day for 30 days 01/03/2025 Active Albuterol Sulfate (2.5 MG/3ML) 0.083% 3 mL as needed Inhalation every 6 hrs 04/03/2024 Active Vitamin D (Ergocalciferol) 1.25 MG (54801 UT) 1 capsule Orally daily Active Walker [...] Problem Status W/U Status Risk Notes Problem 573878041 Paroxysmal atria l fibrillation (I48.0) Active confirmed Problem 524252928 Acute on chronic systolic (congestive) heart failure (I50.23) Active confirmed Problem 41644192 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 Problem Hypertension (46742394) Hypertension (I10) Active confirmed Problem Hypertension (75287550) HTN (hypertension) (I10) Active confirmed Problem Dementia (73123205) Dementia (F03.90) Active co nfirmed Problem 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 (731532277) 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) Active confirmed Problem hypercholesterolemia (disorder) (28697999) Hypercholesteremia (E78.00) Active confirmed Problem 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) Active confirmed Problem Myocardial infarctio n (11986407) Myocardial infarction (I21.9) Active confirmed Vital Signs Temperature 97.7 degrees Fahrenheit 02/23/2024 Blood pressure diastolic 56 mm Hg 08/20/2024 Height 72 in 08/20/2024 Blood pressure systolic 98 mm Hg 08/20/2024 Weight 202.0 lbs 08/20/2024 BMI 27.39 kg/m2 08/20/2024 Encounters Encounter Location Date Provider Diagnosis [facility] [address] [place] [address] 02/23/2024 Mere Gerber HTN (hypertension) I 10 [facility] [address] [place] [address] 04/03/2024 Layton Khalifhoward [facility] [address] [place] [address] 04/30/2024 Layton Kourtney Acute on chronic sys tolic (congestive) heart failure I50.23 [facility] [address] [place] [address] 05/16/2024 Mere Gerber [facility] [address] [facility] [place] [address] 07/01/2024 Mere Gerber [facility] [address] [place] [address] 11/25/2024 Mere Gerber Edema R60.9 [facility] [address] [facility] [place] [address] 12/08/2024 Layton Oconnell [facility] [address] [facility] [place] [place] [address] 12/18/2024 Layton Kourtney Intermittent claudic ation of lower extremity due to atherosclerosis I70.219 [facility] [address] [place] [address] 01/03/2025 Layton Oconnell [facility] [address] [facility] [place] [address] 02/23/2024 Mere Gerber Cough R05.9 and Francis a R60.9 [facility] [address] [place] [address] 08/20/2024 Mere Gerber HTN (hypertension) I 10 [facility] [address] [facility] [place] [address] 04/03/2024 Layton Oconnell Hypertension I10 ; Hypercholesteremia [...] PANEL (CHOL/TRIG/HDL/LDL) 02/23/20 24 PSA, TOTAL 02/23/2024 US NATACHA DOP LEG SYLVIE 12/18/2024 THYROID PANEL (T4/TSH/FREE T3) 4 Insurance Providers Payer Name Payer Address Payer Phone Subscriber Number Group Number Insured Name Patient Relationship to Insured Coverage Start Date Coverage End Date [employer] MEDICARE [address] [place] [phone] [id number] Justus Loyola Self - patient is the insured Medical (General) History Medical History History ICD Code Myocardial infarction I21.9 Hypertension I10 Hypercholesteremia E78.00 Surgical History Surgery Date(Month/Year) Defibrillator placement Cardiac Stent Placement Lithotripsy x2 2024 hearth cath 2024 Hospitalization History Reason Date(Month/Year) See Above
--- OUTSIDE RECORDS SUMMARY | 2025-01-08 08:48 | XMS_ITS | Clinical Summary ---
Author Organization [facility] tem Address [id number] [address] [place] [address] Care Team Providers Care Molecular Geneticist Name Role Phone Mere Gerber OPERATING ROOM REGISTERED NURSE-DOOR TRIMMER Primary Care Provider Allergies No known active [...] drink = 0.6 oz pur e alcohol) [facility] Utilities Answer Date Recorded In the past 12 months has e [email or web address], gas, oil, or water [employer] threatened to shut off services in your [...] law Medical Devices Not on file Insurance PENDING SALE TO [employer] MEDICARE Advance Directives * Full Code (Latest Code Status on File) Date Activated Date Inactivated Comments 06/29/2024 2:29 AM 07/04/2024 7:36 PM Care Teams Molecular Geneticist Relationship Specialty Start Date End Date Mere Gerber, OPERATING ROOM REGISTERED NURSE-DOOR TRIMMER [address] [facility] [place] [address] PCP - General Family Medicine 02/22/24
--- OUTSIDE RECORDS SUMMARY | 2025-01-08 09:04 | XMS_ITS | CCD ---
Author Organization [facility] Care Team Providers Care [place] Supervisor Name Role Phone JAD MITCHELL Primary Care Physician Nova Wang Attending Unavailable TABITHA LEUNG Attending Unavailable Nova Wang Referring Unavailable Nova Wang Attending Unavailable Nova Wang Attending Unavailable Nova Wang Referring Unavailable Nova Wang Attending Unavailable Kelvin Langston MD Attending Provider Radha RACE ENGINE BUILDER-AIRBRUSH ARTIST, Miguel S Primary Care Provider RADHA, MIGUEL [...] Admitting Unavailable Kelvin Langston MD Attending Provider [phone] PRADEEP, ABE Referring Unavailable EKWENNA, OBI Attending Unavailable JAXON RAY Referring Unavailable EVELYNALTAGRACIA Attending Unavailable HERCHERBEREKETA Attending Unavailable EKWENNA, OBI Attending Unavailable EKWENNA, OBI Admitting Unavailable CARYN, FRANCISCO Referring Unavailable EKWENNA, OBI Attending Unavailable CORY, JAXON Referring Unavailable EKWENNA, OBI Referring Unavailable EKWENNA, OBI Referring Unavailable EKWENNA, OBI Referring Unavailable EKWENNA, OBI Referring Unavailable EKWENNA, OBI Referring Unavailable EKWENNA, OBI Referring Unavailable EKWENNA, OBI Attending Unavailable CORYJAXON Mercer Referring Unavailable CORY, JAXON Referring Unavailable PRADEEP, ABE Referring Unavailable PRADEEP, ABE Referring Unavailable PRADEEP, ABE Referring Unavailable PRADEEP, ABE Referring Unavailable EVELYN, ALTAGRACIA Attending Unavailable MOUKAMICHAEL CRAIG Attending Unavailable EKWENNA, OBI Referring Unavailable RADIOLOGY, RADIOLOGIST Attending Unavailab ALTAGRACIA Agee Referring Unavailable EVELYN, ALTAGRACIA Attending Unavailable LEONID RAMIREZ Attending Unavailable RANDOLPH PROCTOR Attending Unavailable RANDOLPH PROCTOR Attending Unavailable CORYJAXON Referring Unavailable ESTHELARANDOLPH LEAL Attending Unavailable RANDOLPH PROCTOR Attending Unavailable EVELYN, ALTAGRACIA Attending Unavailable RANDOLPH PROCTOR Attending Unavailable DAVISMELISSA Referring Unavailable PRADEEP, ABE Referring Unavailable HERCHER, XANDER Referring Unavailable CORY, JAXON Referring Unavailable HERCHER, XANDER Referring Unavailable PRADEEP, ABE Referring Unavailable PRADEEP, ABE Referring Unavailable CORY, JAXON Referring Unavailable CORY, JAXON Referring Unavailable EKWENNA, OBI Attending Unavailable CORYJAXON Referring Unavailable PRADEEP, ABE Referring Unavailable SAILAJA YOUNGBLOOD Attending Unavailable PRADEEP, ABE Admitting Unavailable CORY, JAXON Referring Unavailable HERCHER, XANDER Referring Unavailable EKWENNA, OBI Attending Unavailable EKWENNA, OBI Admitting Unavailable MOUKAMICHAEL CRAIG Attending Unavailable MOUKARBELMICHAEL Admitting Unavailable EKWENNA, OBI Attending Unavailable EKWENNA, OBI Admitting Unavailable Medications Current Medications Medication Drug Class(es) [...] oral tablet (4 sources) alpha-Adrenergic Donavon, beta-Adrenergic Donvaon Start: 04-30-2024 End: 04-30-2025 take 1 tablet [...] Discharge) docusate sodium 50 mg / sennosides, chcf 8.6 mg oral tablet (1 source) Start: [...] hydrochloride 10 mg oral tablet (4 sources) G-lclqkt-J-asp artate Receptor Antagonist Start: 06-29-2024 End: 07-04-2024 take 10 mg by mouth twice daily 10 mg, oral, 2 times daily, First dose on Mon06/29/24 at 2100 Start: 06-18-2024 take 1 capsule by [facility] every twenty-four hours in the morning [...] Administer over 2-5 minutes. polyethylene glycol 3350 88670 mg powder for oral solution (2 sources) [...] [Acute posthemorrhagic anemia] Onset: 5 06-29-2024 Episodic Calculus of urinary tract (3 sources) Calculus of kidney; Translations: [Calculus of kidney] Onset: 5 Episodic Cardiac arrest and ventricular fibrillation (5 [...] and mucopurulent chronic bronchitis] Onset: 4 Chronic Conditions associated with dizziness or vertigo (1 [...] disease (7 sources) Atherosclerotic heart disease of [place] coronary artery without angina pectoris; Translations: [Old [...] Episodic Disorders of lipid metabolism (6 sources) Mixed hyperlipidemia; 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 E Codes: Fall (5 [...] kidney and ureter] Onset: 4 Chronic Other diseases of veins and lymphatics [...] Problem Classification Problem Date Documented Date Episodic/Chronic Complications of surgical procedures or medical care (2 sources) Hypotension due to drugs; Translations: [Hypotension due to drugs] Onset: 04-02-2024 Episodic E Codes: Fall (4 sources) Fall [...] Test Name Value Interpretation Reference Range Facility Follow-Upon 01-06-2025 Follow-Up [facility] Orders Onlyon 12-29-2024 Orders Only Normal [facility] ANESon 12-19-2024 ANES Normal [facility] HPon 12-19-2024 HP Normal [facility] NURSNOTEon 12-19-2024 NURSNOTE Normal [facility] HPon 12-09-2024 HP Normal [facility] Orders Onlyon 11-26-2024 Orders Only Normal [facility] Orders Onlyon 11-25-2024 Orders Only Normal [facility] 37on 11-12-2024 37 [facility] Orders Onlyon 11-12-2024 Orders Only [facility] 37on 10-30-2024 37 Normal [facility] Orders Onlyon 10-19-2024 Orders Only [facility] Follow-Upon 10-17-2024 Follow-Up [facility] Orders Onlyon 09-27-2024 Orders Only [facility] ANESon 09-04-2024 ANES Normal [facility] ANES Normal [facility] HISTOLOGY - TISSUE EXAMon LAB AP ADDENDUM 1 09-17-24: Normal [facility] Comment on above: Order Comment: Pre-o p diagnosis:Kidney stone [N20.0] Result Comment: This case was sent to the Urolithiasis Laboratory in [place], [place] for chemical analysis (please see accompanying report). Please see results below:Urolithiasis Results:No nidus observed in the specimenThe stone is composed of: Calcium oxalate monohydrate: 90% Calcium phosphate (Apatite): 10%Addendum electronically signed by Jaxon Acosta MD on 09/18/2024 at 4:41 PM Performed By: #### L [id number] ####[facility] (BEAKER)[address] [place] [address] LAB AP CASE REPORT Normal [facility] Comment on above: Order Comment: Pre-o p diagnosis:Kidney stone [N20.0] Result Comment: Surg ical Pathology Case: [id number] Provider: Tino Langston MD Collected: 09/04/2024 1108Ordering Location: [facility] Main Operating Room Received: 09/04/2024 1305Pathologist: JERONIMO Morenopecimen: Kidney, KIDNEY STONE FOR ANALYSIS Performed By: #### L [id number] ####[facility] (BEAKER)[address] [place] [address] LAB AP CLINICAL INFORMATION [facility] Comment on above: Order Comment: Pre-o p diagnosis:Kidney stone [N20.0] Result Comment: Pre- op diagnosis:Kidney stone [N20.0] Performed By: #### L [id number] ####[facility] (BEAKER)[address] [place] [address] LAB AP GROSS DESCRIPTION A. Kidney. [facility] Comment on above: Order Comment: Pre-o p diagnosis:Kidney stone [N20.0] Result Comment: The specimen is received fresh labeled Edward Shiets and kidney stone for analysis. It consists of a 0.3 x 0.2 x 0.1 cm yellow-brown, firm, roughened stone. The specimen is for gross examination only and is to be sent to the Urolithiasis lab in [place], [place] for chemical analysis.Rhiannon Mercado, Pathologists' Tug Hand studentTabitha Aggarwal Pathologists' Tug Hand Student Performed By: #### L [id number] ####[facility] (BEAKER)[address] [place] [address] LAB AP MICROSCOPIC DESCRIPTION Gross examination only. [facility] Comment on above: Order Comment: Pre-o p diagnosis:Kidney stone [N20.0] Performed By: #### L [id number] ####[facility] (BEAKER)[address] [place] [address] LAB AP REPORT FINAL DIAGNOSIS NARRATIVE [facility] Comment on above: Order Comment: Pre-o p diagnosis:Kidney stone [N20.0] Result Comment: cherri Forman for analysis: - Gross examination consistent with renal calculus. - Specimen forwarded to reference laboratory for chemical analysis. Performed By: #### L [id number] ####[facility] ([facility])[address] [place] [address] HPon 09-04-2024 HP Normal [facility] OPNOTEon 09-04-2024 OPNOTE Normal [facility] POCT GLUCOSE METER UNSOLICIT ED RESULTSon 09-04-2024 Glucose [Mass/Vol] 80 mg/dL Normal 70-105 [facility] Comment on above: Order Comment: Waive d Testing in the ED is performed under the ED CLIA certificate #[id number]. Result Comment: jhag eman Performed By: #### L [id number] ####[facility] ([facility])[address] [place] [address] APTTon 08-30-2024 ACTIVATED PARTIAL THROMBOPLASTIN TIME IN PPP BY COAGULATION ASSAY 30.3 Seconds Normal 25.0-35.0 [facility] Comment on above: Result Comment: Clin ical significance of the APTT is questionable in the presence of heparin. Performed By: #### L [id number] ####[facility] ([facility])[address] [place] [address] CBC WITH AUTO DIFFERENTIALon 08-30-2024 Basophils (Bld) [#/Vol] 0.06 10*3/uL Normal 0.00-0.20 [facility] Comment on above: Performed By: #### L [id number] ####[facility] ([facility])[address] [place] [address] Basophils/100 WBC (Bld) 1.0 % Normal 0.0-1.0 [facility] Comment on above: Performed By: #### L [id number] ####[facility] ([facility])[address] [place] [address] Eosinophils (Bld) [#/Vol] 0.24 10*3/uL Normal 0.00-0.5 0 [facility] Comment on above: Performed By: #### L [id number] ####[facility] (BEAKER)[address] [place] [address] Eosinophils/100 WBC (Bld) 3.8 % Normal 0.0-6.0 [facility] Comment on above: Performed By: #### L [id number] ####[facility] (BEAKER)[address] [place] [address] Erythrocyte distribution width (RBC) [Ratio] 17.0 % High 11.5-15.0 [facility] Comment on above: Performed By: #### L [id number] ####[facility] [place] [address] ERYTHROCYTE MEAN CORPUSCULAR HEMOGLOBIN CONCENTRATION (G/DL) BY AUTOMATED 31.2 g/dL Low 32.0-35.0 [facility] Comment on above: Performed By: #### L [id number] ####[facility] [place] [address] Hematocrit (Bld) [Volume fraction] 42.6 % Normal 39.0-50.0 [facility] Comment on above: Performed By: #### L [id number] ####[facility] (BEAKER)[address] [place] [address] Hemoglobin (Bld) [Mass/Vol] 13.3 g/dL Normal 13.0-17.0 [facility] Comment on above: Performed By: #### L [id number] ####[facility] (BEAKER)[address] [place] [address] Immature granulocytes (Bld) [#/Vol] 0.02 10*3/uL Normal 0.00-0.20 [facility] Comment on above: Performed By: #### L [id number] ####[facility] (BEAKER)[address] [place] [address] Immature granulocytes/100 WBC (Bld) 0.3 % Normal 0.0-1.0 [facility] Comment on above: Performed By: #### L [id number] ####[facility] (BEAKER)[address] [place] [address] Lymphocytes (Bld) [#/Vol] 1.29 10*3/uL Normal 1.20-4.0 0 [facility] Comment on above: Performed By: #### L [id number] ####[facility] (BEAKER)[address] [place] [address] Lymphocytes/100 WBC (Bld) 20.6 % Normal 20.0-45.0 [facility] Comment on above: Performed By: #### L [id number] ####[facility] (BEAKER)[address] [place] [address] MCH (RBC) [Entitic mass] 30.5 pg Normal 27.0-33.0 [facility] Comment on above: Performed By: #### L [id number] ####[facility] (BEAKER)[address] [place] [address] MCV (RBC) [Entitic vol] 97.7 fL Normal 82.0-98.0 [facility] Comment on above: Performed By: #### L [id number] ####[facility] (BEAKER)[address] [place] [address] Monocytes (Bld) [#/Vol] 0.53 10*3/uL Normal 0.10-1.00 [facility] Comment on above: Performed By: #### L [id number] ####[facility] (BEAKER)[address] [place] [address] Monocytes/100 WBC (Bld) 8.5 % Normal 5.0-12.0 [facility] Comment on above: Performed By: #### L [id number] ####[facility] (BEAKER)[address] [place] [address] Neutrophils (Bld) [#/Vol] 4.12 10*3/uL Normal 1.60-7.6 0 [facility] Comment on above: Performed By: #### L [id number] ####[facility] (BEAKER)[address] [place] [address] Neutrophils/100 WBC (Bld) 65.8 % Normal 40.0-72.0 [facility] Comment on above: Performed By: #### L [id number] ####[facility] ([facility])[address] [place] [address] NRBC (PER 100 WBCS) BY AUTOMATED COUNT 0.0 % Normal 0 [facility] Comment on above: Performed By: #### L [id number] ####[facility] ([facility])[address] [place] [address] PLATELETS (10*3/UL) IN BLOOD AUTOMATED COUNT 189 10*3/uL Normal 150-400 [facility] Comment on above: Performed By: #### L [id number] ####[facility] ([facility])[address] [place] [address] RBC (Bld) [#/Vol] 4.36 10*6/uL Normal 4.20-5.70 [facility] Comment on above: Performed By: #### L [id number] ####[facility] ([facility])[address] [place] [address] WBC (Bld) [#/Vol] 6.26 10*3/uL Normal 4.00-10.60 [facility] Comment on above: Performed By: #### L [id number] ####[facility] ([facility])[address] [place] [address] HPon 08-30-2024 HP Normal [facility] Labon 08-30-2024 Lab Normal [facility] PROTIME-INRon 08-30-2024 INR IN PPP BY COAGULATION ASSAY 1.15 High 0.90-1.10 [facility] Comment on above: Result Comment: ACCC P [...] CHEST 1995;108:231S-246S. Performed By: #### L [id number] ####[facility] ([facility])[address] [place] [address] PROTHROMBIN TIME (PT) IN PPP BY COAGULATION ASSAY 14.7 Seconds Normal 12.3-14.8 [facility] Comment on above: Performed By: #### L [id number] ####[facility] ([facility])[address] [place] [address] Pre-Admission Testingon 08-13 Pre-Admission Testing Normal [facility] T4, FREEon 08-30-2024 THYROXINE (T4) FREE (NG/DL) IN SER/PLAS 1.24 ng/dL Normal 0.71-1.85 [facility] Comment on above: Performed By: #### L [id number] ####[facility] ([facility])[address] [place] [address] TSHon 08-30-2024 THYROTROPIN (MIU/L) IN SER/PLAS BY DETECTION LIMIT <= 0.05 MIU/L 2.01 mIU/L Normal 0.34-5.60 [facility] Comment on above: Performed By: #### L [id number] ####[facility] ([facility])[address] [place] [address] Urine Cultureon 08-29-2024 Bacteria identified Cx Nom (U) <9,000 colonies/ml mixed bacterial skin contaminants 2 Days PERFORMED BY: [facility] [place] [address] PATHOLOGIST BALE OPENER MARTINE BAIN M.D. Normal [facility] Comment on above: Performed By: #### C UU #### [facility] [address] [id number] [facility] 36on 08-02-2024 36 Called POA ( son ) Patrice to reschedule sx from 08/13 - no answer , lvm for him to call back in office. Normal [facility] 36on 08-01-2024 36 Pt is scheduled surgery for 08/13/24 and needs to change the date. Please advise and call patient's son with new date. Normal [facility] Follow-Upon 07-19-2024 Follow-Up [facility] CBC AND AUTO DIFFon 07-09-19 ABSOLUTE BASOPHIL 0.1 X10E9/L Normal 0.0-0.2 [facility] Comment on above: Performed By: #### P INR, 00887-3 #### [facility] ([id number]) [address] [place] [address] #### CBCA, CMP #### [facility] ([id number]) [facility], [address] [place] [address] ABSOLUTE NEUTROPHIL 5.3 X10E9/L Normal 1.5-6.6 [facility] Comment on above: Performed By: #### P INR, 63727-3 #### [facility] ([id number]) [address] [place] [address] #### CBCA, CMP #### [facility] ([id number]) [address] [facility], [address] [place] [address] Basophils/100 WBC (Bld) 0.7 % Normal P [facility] Comment on above: Performed By: #### P INR, 58963-8 #### [facility] ([id number]) [address] [place] [address] #### CBCA, CMP #### [facility] ([id number]) [address] [facility], [address] [place] [address] Eosinophils (Bld) [#/Vol] 0.1 10*3/uL Normal 0.0-0.4 [facility] Comment on above: Performed By: #### P INR, 46624-7 #### [facility] ([id number]) [address] [place] [address] #### CBCA, CMP #### [facility] ([id number]) [address] [place] [address], [address] [place] [address] Eosinophils/100 WBC (Bld) 1.8 % Normal [facility] Comment on above: Performed By: #### P INR, 71428-9 #### [facility] ([id number]) [address] [place] [address] #### CBCA, CMP #### [facility] ([id number]) [address] [facility], [address] [place] [address] Erythrocyte distribution width (RBC) [Ratio] 15.3 % High 11.5-15.0 [facility] Comment on above: Performed By: #### P INR, 15535-6 #### [facility] ([id number]) [address] [place] [address] #### CBCA, CMP #### [facility] ([id number]) [address] [facility], [address] [place] [address] Hematocrit (Bld) [Volume fraction] 23.8 % Low 39-49 [facility] Comment on above: Performed By: #### P INR, 95509-6 #### [facility] ([id number]) [address] [place] [address] 92189 #### CBCA, CMP #### [facility] ([id number]) [address] [place] [address] Hemoglobin (Bld) [Mass/Vol] 8.1 g/dL Low 13.0-17.0 [facility] Comment on above: Performed By: #### P INR, 16602-7 #### [facility] ([id number]) [address] [place] [address] #### CBCA, CMP #### [facility] ([id number]) [address], [address] [place] [address] Lymphocytes (Bld) [#/Vol] 1.2 10*3/uL Normal 1.0-3.5 [facility] Comment on above: Performed By: #### P INR, 53937-7 #### [facility] ([id number]) [address] [place] [address] #### CBCA, CMP #### [facility] ([id number]) [address] [facility], [address] [place] [address] Lymphocytes/100 WBC (Bld) 16.3 % Normal [facility] Comment on above: Performed By: #### P INR, 22885-5 #### [facility] ([id number]) [address] [place] [address] #### CBCA, CMP #### [facility] ([id number]) [address], [address] [place] [address] MCH (RBC) [Entitic mass] 31.8 pg Normal 27-34 [facility] Comment on above: Performed By: #### P INR, 48197-3 #### [facility] ([id number]) [address] [place] [address]66[address] #### CBCA, CMP #### [facility] ([id number]) [address] [facility], [address] [place] [address] MCHC (RBC) [Mass/Vol] 34.1 g/dL Normal 32-36 [facility] Comment on above: Performed By: #### P INR, 60399-3 #### [facility] ([id number]) [address] [place] [address] 10044 #### CBCA, CMP #### [facility] ([id number]) [address], [address] [place] [address] MCV (RBC) [Entitic vol] 93 fL Normal 80-100 P [facility] Comment on above: Performed By: #### P INR, 65810-7 #### [facility] ([id number]) [address] [place] [address]9926 #### CBCA, CMP #### [facility] ([id number]) [address], [address] [place] [address] Monocytes (Bld) [#/Vol] 0.5 10*3/uL Normal 0-0.9 [facility] Comment on above: Performed By: #### P INR, 33825-4 #### [facility] ([id number]) [address] [place] [address] 43592 #### CBCA, CMP #### [facility] ([id number]) [address], [address] [place] [address] Monocytes/100 WBC (Bld) 7.0 % Normal P [facility] Comment on above: Performed By: #### P INR, 48390-3 #### [facility] ([id number]) [address] [place] [address] 22238 #### CBCA, CMP #### [facility] ([id number]) [address], [address] [place] [address] Neutrophils/100 WBC (Bld) 74.2 % Normal [facility] Comment on above: Performed By: #### P INR, 84846-0 #### [facility] ([id number]) [address] [place] [address] 52889 #### CBCA, CMP #### [facility] ([id number]) [address] [place] [address] Platelet mean volume (Bld) [Entitic vol] 8.7 fL Normal 7-12 [facility] Comment on above: Performed By: #### P INR, 60321-1 #### [facility] ([id number]) [address] [place] [address] 62366 #### CBCA, CMP #### [facility] ([id number]) [address], [address] [place] [address] Platelets (Bld) [#/Vol] 284 10*3/uL Normal 150-450 [facility] Comment on above: Performed By: #### P INR, 42898-1 #### [facility] ([id number]) [address] [place] [address] 13657 #### CBCA, CMP #### [facility] ([id number]) [address] [place] [address] RBC COUNT 2.55 X10E12/L Low 4.10-5.70 [facility] Comment on above: Performed By: #### P INR, 17867-2 #### [facility] ([id number]) [address] [place] [address] 26639 #### CBCA, CMP #### [facility] ([id number]) [address] [place] [address] WBC (Bld) [#/Vol] 7.2 10*3/uL Normal 4.0-11.0 [facility] Comment on above: Performed By: #### P INR, 48763-0 #### [facility] ([id number]) [address] [place] [address] 27611 #### CBCA, CMP #### [facility] ([id number]) [address], [address] [place] [address] COMPREHENSIVE METABOLIC PANE Larry 07-09-2024 Albumin [Mass/Vol] 2.6 g/dL Low 3.2-5.3 [facility] Comment on above: Performed By: #### P INR, 87902-0 #### [facility] ([id number]) [address] [place] [address] 26986 #### CBCA, CMP #### [facility] ([id number]) [address] [place] [address] ALP [Catalytic activity/Vol] 73 U/L Normal 39-130 [facility] Comment on above: Performed By: #### P INR, 53744-5 #### [facility] ([id number]) [address] [place] [address] 89354 #### CBCA, CMP #### [facility] ([id number]) [address], [address] [place] [address] ALT [Catalytic activity/Vol] 37 U/L Normal 0-40 [facility] Comment on above: Performed By: #### P INR, 53198-5 #### [facility] ([id number]) [address] [place] [address]249 #### CBCA, CMP #### [facility] ([id number]) [address] [place] [address] Anion gap [Moles/Vol] 6 mmol/L Normal 5-15 [facility] Comment on above: Performed By: #### P INR, 03267-0 #### [facility] ([id number]) [address] [place] [address] #### CBCA, CMP #### [facility] ([id number]) [address] [facility], [address] [place] [address] AST [Catalytic activity/Vol] 58 U/L High 0-41 [facility] Comment on above: Performed By: #### P INR, 03110-0 #### [facility] ([id number]) [address] [place] [address] 38961 #### CBCA, CMP #### [facility] ([id number]) [address] [facility], [address] [place] [address] Bilirubin [Mass/Vol] 1.0 mg/dL Normal 0.3-1.2 [facility] Comment on above: Performed By: #### P INR, 85960-9 #### [facility] ([id number]) [address] [place] [address] 68591 #### CBCA, CMP #### [facility] ([id number]) [address] [facility], [address] [place] [address] Calcium [Mass/Vol] 8.5 mg/dL Normal 8.5-10.5 [facility] Comment on above: Performed By: #### P INR, 41866-2 #### [facility] ([id number]) [address] [place] [address] 87043 #### CBCA, CMP #### [facility] ([id number]) [address] [facility], [address] [place] [address] Chloride [Moles/Vol] 106 mmol/L Normal 98-109 [facility] Comment on above: Performed By: #### P INR, 81070-5 #### [facility] ([id number]) [address] [place] [address] 99768 #### CBCA, CMP #### [facility] ([id number]) [address] [place] [address] CO2 [Moles/Vol] 26 mmol/L Normal 22-32 [facility] Comment on above: Performed By: #### P INR, 59546-1 #### [facility] ([id number]) [address] [place] [address] 99430 #### CBCA, CMP #### [facility] ([id number]) [address] [place] [address] Creatinine [Mass/Vol] 1.72 mg/dL High 0.70-1.20 [facility] Comment on above: Result Comment: METH OD TRACEABLE TO IDMS STANDARD Performed By: #### P INR, 50053-3 #### [facility] ([id number]) [address] [place] [address] 26281 #### CBCA, CMP #### [facility] ([id number]) [address] [facility], [address] [place] [address] GFR/1.73 sq M.predicted among non-blacks MDRD (S/P/Bld) [Vol rate/Area] 40 mL/min/{1.73_m2} Low >59 Pr [facility] Comment on above: Result Comment: Reported eGFR is based on the CKD-EPI 2020 equation that does not use a race coefficient. Performed By: #### P INR, 79247-4 #### [facility] ([id number]) [address] [place] [address] 81214 #### CBCA, CMP #### [facility] ([id number]) [address] [place] [address] Glucose [Mass/Vol] 97 mg/dL Normal 65-99 [facility] Comment on above: Performed By: #### P INR, 81763-9 #### [facility] ([id number]) [address] [place] [address] [place] [address] #### CBCA, CMP #### [facility] ([id number]) [address] [facility], [address] [place] [address] Potassium [Moles/Vol] 4.0 mmol/L Normal 3.5-5.0 [facility] Comment on above: Performed By: #### P INR, 81095-5 #### [facility] ([id number]) [address] [place] [address] 00546 #### CBCA, CMP #### [facility] ([id number]) [facility] [facility], [address] [place] [address] Protein [Mass/Vol] 6.4 g/dL Normal 6.0-8.0 [facility] Comment on above: Performed By: #### P INR, 41922-2 #### [facility] ([id number]) [address] [place] [address] 67[address] #### CBCA, CMP #### [facility] ([id number]) [address] [facility], [address] [place] [address] Sodium [Moles/Vol] 138 mmol/L Normal 134-146 [facility] Comment on above: Performed By: #### P INR, 16615-8 #### [facility] ([id number]) [address] [place] [address] 27896 #### CBCA, CMP #### [facility] ([id number]) [address] [facility], [address] [place] [address] Urea nitrogen [Mass/Vol] 30 mg/dL High 5-27 [facility] Comment on above: Performed By: #### P INR, 38678-1 #### [facility] ([id number]) [address] [place] [address] 57978 #### CBCA, CMP #### [facility] ([id number]) [address] [facility], [address] [place] [address] CT ABDOMEN AND PELVIS W CONT on [...] Cobb MD on 07/09/2024 6:35 PM Normal [facility] LIPASEon 07-09-2024 Lipase [Catalytic activity/Vol] 32 U/L Normal 17-40 [facility] Comment on above: Performed By: #### P INR, 10575-2 #### [facility] ([id number]) [address] [place] [address] 93504 #### CBCA, CMP #### [facility] ([id number]) [address] [place] [address] Lactate (P rosanne) [Moles/Vol]o n 07-09-2024 LACTATE W/REFLEX 1.2 mmol/L Normal 0.4-2.0 [facility] Comment on above: Result Comment: Result did not trigger repeat Lactate, re-order if needed. Performed By: #### P INR, 53170-8 #### [facility] ([id number]) [address] [place] [address] 56601 #### CBCA, CMP #### [facility] ([id number]) [address] [facility], [address] [place] [address] MAGNESIUMon 07-09-2024 Magnesium [Mass/Vol] 2.2 mg/dL Normal 1.8-2.6 [facility] Comment on above: Performed By: #### P INR, 29157-3 #### [facility] ([id number]) [address] [place] [address] 88688 #### CBCA, CMP #### [facility] ([id number]) [address] [facility], [address] [place] [address] URINE CULTUREon 07-09-2024 Bacteria identified Cx Nom (U) CULTURE RESULTS NO GROWTH AT <1000 CFU/mL Normal [facility] Comment on above: Performed By: #### P INR, 20795-2 #### [facility] ([id number]) [address] [place] [address] 60935 #### CBCA, CMP #### [facility] ([id number]) [address] [place] [address] URN MACROSCOPIC NURon 2024 BILIRUBIN DIANE Small Abnormal NEG [facility] Comment on above: Performed By: #### P INR, 39595-4 #### [facility] ([id number]) [address] [place] [address] 06330 #### CBCA, CMP #### [facility] ([id number]) [address] [place] [address] BLOOD/HGB DIANE Large Abnormal NEG [facility] Comment on above: Performed By: #### P INR, 74399-8 #### [facility] ([id number]) [address] [place] [address] 20835 #### CBCA, CMP #### [facility] ([id number]) [address] [place] [address] GLUCOSE DIANE >=1000 Abnormal NEG [facility] Comment on above: Performed By: #### P INR, 22636-6 #### [facility] ([id number]) [address] [place] [address] 84563 #### CBCA, CMP #### [facility] ([id number]) [address] [place] [address] KETONES DIANE Negative Normal NEG [facility] Comment on above: Performed By: #### P INR, 88402-5 #### [facility] ([id number]) [address] [place] [address] 23793 #### CBCA, CMP #### [facility] ([id number]) [address] [place] [address] LEUKOCYTE ESTERASE DIANE Large Abnormal NEG [facility] Comment on above: Performed By: #### P INR, 03319-9 #### [facility] ([id number]) [address] [place] [address] 00338 #### CBCA, CMP #### [facility] ([id number]) [address] [place] [address] NITRITE DIANE Negative Normal NEG [facility] Comment on above: Performed By: #### P INR, 75658-5 #### [facility] ([id number]) [address] [place] [address] 03966 #### CBCA, CMP #### [facility] ([id number]) [address] [facility], [address] [place] [address] PH DIANE 7.0 Normal 5.0-8.5 [facility] Comment on above: Performed By: #### P INR, 33169-9 #### [facility] ([id number]) [address] [place] [address] 99426 #### CBCA, CMP #### [facility] ([id number]) [address] [facility], [address] [place] [address] PROTEIN DIANE >=300 Abnormal NEG [facility] Comment on above: Performed By: #### P INR, 75062-5 #### [facility] ([id number]) [address] [place] [address] 10188 #### CBCA, CMP #### [facility] ([id number]) [address] [place] [address] SPECIFIC GRAVITY DIANE 1.015 Normal 1.003-1 .03 5 [facility] Comment on above: Performed By: #### P INR, 91348-0 #### [facility] ([id number]) [address] [place] [address] 62689 #### CBCA, CMP #### [facility] ([id number]) [address] [place] [address] UROBILINOGEN DIANE >=8.0 Normal <1.1 [facility] Comment on above: Performed By: #### P INR, 86450-8 #### [facility] ([id number]) [address] [place] [address] 34628 #### CBCA, CMP #### [facility] ([id number]) [address] [facility], [address] [place] [address] CBC AND AUTO DIFFon 07-05-19 25 ABSOLUTE BASOPHIL 0.1 X10E9/L Normal 0.0-0.2 [facility] Comment on above: Performed By: #### P INR, 84193-9 #### [facility] ([id number]) [address] [place] [address] 17022 #### CBCA, CMP #### [facility] ([id number]) [address] [facility], [address] [place] [address] ABSOLUTE NEUTROPHIL 8.8 X10E9/L High 1.5-6.6 [facility] Comment on above: Performed By: #### P INR, 72929-9 #### [facility] ([id number]) [address] [place] [address] 91673 #### CBCA, CMP #### [facility] ([id number]) [address] [facility], [address] [place] [address] Basophils/100 WBC (Bld) 0.5 % Normal P [facility] Comment on above: Performed By: #### P INR, 28369-1 #### [facility] ([id number]) [address] [place] [address] 30729 #### CBCA, CMP #### [facility] ([id number]) [address] [facility], [address] [place] [address] Eosinophils (Bld) [#/Vol] 0.1 10*3/uL Normal 0.0-0.4 [facility] Comment on above: Performed By: #### P INR, 30305-0 #### [facility] ([id number]) [address] [place] [address] 19730 #### CBCA, CMP #### [facility] ([id number]) [address] [place] [address] Eosinophils/100 WBC (Bld) 1.1 % Normal [facility] Comment on above: Performed By: #### P INR, 53152-9 #### [facility] ([id number]) [address] [place] [address] 32826 #### CBCA, CMP #### [facility] ([id number]) [address] [place] [address] Erythrocyte distribution width (RBC) [Ratio] 15.2 % High 11.5-15.0 [facility] Comment on above: Performed By: #### P INR, 86657-6 #### [facility] ([id number]) [address] [place] [address] 56276 #### CBCA, CMP #### [facility] ([id number]) [address] [place] [address] Hematocrit (Bld) [Volume fraction] 32.7 % Low 39-49 [facility] Comment on above: Performed By: #### P INR, 04101-1 #### [facility] ([id number]) [address] [place] [address] 16216 #### CBCA, CMP #### [facility] ([id number]) [address] [place] [address] Hemoglobin (Bld) [Mass/Vol] 10.9 g/dL Low 13.0-17.0 [facility] Comment on above: Performed By: #### P INR, 83242-0 #### [facility] ([id number]) [address] [place] [address] 68257 #### CBCA, CMP #### [facility] ([id number]) [address] [place] [address] Lymphocytes (Bld) [#/Vol] 1.0 10*3/uL Normal 1.0-3.5 [facility] Comment on above: Performed By: #### P INR, 65953-9 #### [facility] ([id number]) [address] [place] [address] 10392 #### CBCA, CMP #### [facility] ([id number]) [address] [place] [address] Lymphocytes/100 WBC (Bld) 9.0 % Normal [facility] Comment on above: Performed By: #### P INR, 73057-1 #### [facility] ([id number]) [address] [place] [address] 82802 #### CBCA, CMP #### [facility] ([id number]) [address] [place] [address] MCH (RBC) [Entitic mass] 31.0 pg Normal 27-34 [facility] Comment on above: Performed By: #### P INR, 34689-5 #### [facility] ([id number]) [address] [place] [address] 99240 #### CBCA, CMP #### [facility] ([id number]) [address] [place] [address] MCHC (RBC) [Mass/Vol] 33.2 g/dL Normal 32-36 [facility] Comment on above: Performed By: #### P INR, 06202-1 #### [facility] ([id number]) [address] [place] [address] 30751 #### CBCA, CMP #### [facility] ([id number]) [address] [place] [address] MCV (RBC) [Entitic vol] 93 fL Normal 80-100 P [facility] Comment on above: Performed By: #### P INR, 27876-6 #### [facility] ([id number]) [address] [place] [address] 45811 #### CBCA, CMP #### [facility] ([id number]) [address] [facility] [place] [address] Monocytes (Bld) [#/Vol] 1.0 10*3/uL High 0-0.9 [facility] Comment on above: Performed By: #### P INR, 91281-1 #### [facility] ([id number]) [address] [place] [address] 09226 #### CBCA, CMP #### [facility] ([id number]) [address] [facility], [address] [place] [address] Monocytes/100 WBC (Bld) 8.9 % Normal P [facility] Comment on above: Performed By: #### P INR, 61560-5 #### [facility] ([id number]) [address] [place] [address] 11852 #### CBCA, CMP #### [facility] ([id number]) [address] [facility], [address] [place] [address] Neutrophils/100 WBC (Bld) 80.5 % Normal [facility] Comment on above: Performed By: #### P INR, 37282-5 #### [facility] ([id number]) [address] [place] [address] 02152 #### CBCA, CMP #### [facility] ([id number]) [address] [place] [address] Platelet mean volume (Bld) [Entitic vol] 8.6 fL Normal 7-12 [facility] Comment on above: Performed By: #### P INR, 25725-3 #### [facility] ([id number]) [address] [place] [address] 68844 #### CBCA, CMP #### [facility] ([id number]) [address] [place] [address] Platelets (Bld) [#/Vol] 275 10*3/uL Normal 150-450 [facility] Comment on above: Performed By: #### P INR, 57550-1 #### [facility] ([id number]) [address] [place] [address] 50253 #### CBCA, CMP #### [facility] ([id number]) [address] [place] [address] RBC COUNT 3.50 X10E12/L Low 4.10-5.70 [facility] Comment on above: Performed By: #### P INR, 83989-6 #### [facility] ([id number]) [address] [place] [address] 34653 #### CBCA, CMP #### [facility] ([id number]) [address] [place] [address] WBC (Bld) [#/Vol] 10.9 10*3/uL Normal 4.0-11.0 [facility] Comment on above: Performed By: #### P INR, 09696-8 #### [facility] ([id number]) [address] [place] [address] 95676 #### CBCA, CMP #### [facility] ([id number]) [address] [facility] [place] [address] COMPREHENSIVE METABOLIC PANE Larry 07-05-2024 Albumin [Mass/Vol] 2.6 g/dL Low 3.2-5.3 [facility] Comment on above: Performed By: #### P INR, 35946-6 #### [facility] ([id number]) [address] [place] [address] 98226 #### CBCA, CMP #### [facility] ([id number]) [address] [facility], [address] [place] [address] ALP [Catalytic activity/Vol] 71 U/L Normal 39-130 [facility] Comment on above: Performed By: #### P INR, 43687-5 #### [facility] ([id number]) [address] [place] [address] 35306 #### CBCA, CMP #### [facility] ([id number]) [address] [facility] [place] [address] ALT [Catalytic activity/Vol] 14 U/L Normal 0-40 [facility] Comment on above: Performed By: #### P INR, 12539-4 #### [facility] ([id number]) [address] [place] [address] 52589 #### CBCA, CMP #### [facility] ([id number]) [address] [facility] [place] [address] Anion gap [Moles/Vol] 5 mmol/L Normal 5-15 [facility] Comment on above: Performed By: #### P INR, 94360-0 #### [facility] ([id number]) [address] [place] [address] 02310 #### CBCA, CMP #### [facility] ([id number]) [address] [facility] [place] [address] AST [Catalytic activity/Vol] 29 U/L Normal 0-41 [facility] Comment on above: Performed By: #### P INR, 16133-8 #### [facility] ([id number]) [address] [place] [address] 44911 #### CBCA, CMP #### [facility] ([id number]) [address] [place] [address] Bilirubin [Mass/Vol] 1.3 mg/dL High 0.3-1.2 [facility] Comment on above: Performed By: #### P INR, 26516-8 #### [facility] ([id number]) [address] [place] [address] 33398 #### CBCA, CMP #### [facility] ([id number]) [address] [place] [address] Calcium [Mass/Vol] 8.6 mg/dL Normal 8.5-10.5 [facility] Comment on above: Performed By: #### P INR, 92949-1 #### [facility] ([id number]) [address] [place] [address] 37636 #### CBCA, CMP #### [facility] ([id number]) [address] [place] [address] Chloride [Moles/Vol] 105 mmol/L Normal 98-109 [facility] Comment on above: Performed By: #### P INR, 99146-8 #### [facility] ([id number]) [address] [place] [address] 37751 #### CBCA, CMP #### [facility] ([id number]) [address] [place] [address] CO2 [Moles/Vol] 28 mmol/L Normal 22-32 [facility] Comment on above: Performed By: #### P INR, 66965-3 #### [facility] ([id number]) [address] [place] [address] 74537 #### CBCA, CMP #### [facility] ([id number]) [address] [place] [address] Creatinine [Mass/Vol] 1.24 mg/dL High 0.70-1.20 [facility] Comment on above: Result Comment: METH OD TRACEABLE TO IDMS STANDARD Performed By: #### P INR, 12008-6 #### [facility] ([id number]) [address] [place] [address] 67640 #### CBCA, CMP #### [facility] ([id number]) [address] [place] [address] GFR/1.73 sq M.predicted among non-blacks MDRD (S/P/Bld) [Vol rate/Area] 60 mL/min/{1.73_m2} Normal >59 Pr [facility] Comment on above: Result Comment: Reported eGFR is based on the CKD-EPI 2020 equation that does not use a race coefficient. Performed By: #### P INR, 68846-2 #### [facility] ([id number]) [address] [place] [address] 12516 #### CBCA, CMP #### [facility] ([id number]) [address] [place] [address] Glucose [Mass/Vol] 115 mg/dL High 65-99 [facility] Comment on above: Performed By: #### P INR, 01402-5 #### [facility] ([id number]) [address] [place] [address] 71564 #### CBCA, CMP #### [facility] ([id number]) [address] [place] [address] Potassium [Moles/Vol] 4.0 mmol/L Normal 3.5-5.0 [facility] Comment on above: Performed By: #### P INR, 67830-0 #### [facility] ([id number]) [address] [place] [address] 85660 #### CBCA, CMP #### [facility] ([id number]) [address] [place] [address] Protein [Mass/Vol] 6.5 g/dL Normal 6.0-8.0 [facility] Comment on above: Performed By: #### P INR, 82354-6 #### [facility] ([id number]) [address] [place] [address] 65276 #### CBCA, CMP #### [facility] ([id number]) [address] [place] [address] Sodium [Moles/Vol] 138 mmol/L Normal 134-146 [facility] Comment on above: Performed By: #### P INR, 85298-2 #### [facility] ([id number]) [address] [place] [address] #### CBCA, CMP #### [facility] ([id number]) [address] [place] [address] Urea nitrogen [Mass/Vol] 19 mg/dL Normal 5-27 [facility] Comment on above: Performed By: #### P INR, 20103-2 #### [facility] ([id number]) [address] [place] [address] #### CBCA, CMP #### [facility] ([id number]) [address] [place] [address] CT ABDOMEN AND PELVIS W CONT on [...] THE CLINICAL SERVICE ON 07/05/2024 6:59 PM Workstation:[email or web address] Finalized by Ashley Joyce on 07/05/2024 7:01 PM Normal [facility] Lactate (P rosanne) [Moles/Vol]o n 07-05-2024 LACTATE W/REFLEX 1.5 mmol/L Normal 0.4-2.0 [facility] Comment on above: Result Comment: Result did not trigger repeat Lactate, re-order if needed. Performed By: #### P INR, 37134-4 #### [facility] ([id number]) [address] [place] [address] #### CBCA, CMP #### [facility] ([id number]) [address] [address] [facility], [address] [place] [address] PROTIME AND INRon 07-05-2024 INR Coag (PPP) [Relative time] 1.9 {INR} High 0.8-1.1 [facility] Comment on above: Performed By: #### P INR, 71104-4 #### [facility] ([id number]) [address] [place] [address], [place] [address] #### CBCA, CMP #### [facility] ([id number]) [address] [place] [address] PT Coag (PPP) [Time] 21.4 s High 9.8-13.2 [facility] Comment on above: Result Comment: NEW REFERENCE RANGE Performed By: #### P INR, 96518-0 #### [facility] ([id number]) [address] [place] [id number] #### CBCA, CMP #### [facility] ([id number]) [address], [address] [place] [address] UA (MICROSCOPIC)on 5 R.B.CELLS >100 High 0-5 [facility] Comment on above: Performed By: #### P INR, 37729-1 #### [facility] ([id number]) [address] [place] [address] #### CBCA, CMP #### [facility] ([id number]) [address] [place] [address] SQUAMOUS EPITHELIUM 2 /hpf Normal 0-5 [facility] Comment on above: Performed By: #### P INR, 66472-8 #### [facility] ([id number]) [address] [place] [address] #### CBCA, CMP #### [facility] [facility] ([id number]) [address] [place] [address] Urinalysis dipstick W Reflex Microscopic panel (U) Results maybe affected due to High RBC count, interpretwith caution. Normal [facility] Comment on above: Performed By: #### P INR, 86755-6 #### [facility] ([id number]) [address] [place] [address] #### CBCA, CMP #### [facility] ([id number]) [address] [place] [address] W.B.CELLS 3 /hpf Normal 0-5 [facility] Comment on above: Performed By: #### P INR, 36751-9 #### [facility] ([id number]) [address] [facility], [place] [address] #### CBCA, CMP #### [facility] ([id number]) [address] [place] [address] BASIC METABOLIC PANLon 07-04 Anion gap [Moles/Vol] 6 mmol/L Normal 5-15 [facility] Comment on above: Performed By: #### C BCA, 5643-2, 1797-8, CMP, 3040-3, 96058-3, PINR, 21574-2 #### [facility] ([id number]) [address] [place] [address] Calcium [Mass/Vol] 8.4 mg/dL Low 8.5-10.5 [facility] Comment on above: Performed By: #### C BCA, 5643-2, 1797-8, CMP, 3040-3, 19557-3, PINR, 53666-3 #### [facility] ([id number]) [address], [address] [place] [address] Chloride [Moles/Vol] 107 mmol/L Normal 98-109 [facility] Comment on above: Performed By: #### C BCA, 5643-2, 1797-8, CMP, 3040-3, 57375-4, PINR, 43063-9 #### [facility] ([id number]) [address] [place] [address] CO2 [Moles/Vol] 29 mmol/L Normal 22-32 [facility] Comment on above: Performed By: #### C BCA, 5643-2, 8-8, CMP, 3040-3, 40046-1, PINR, 38872-5 #### [facility] ([id number]) [address], [address] [place] [address] Creatinine [Mass/Vol] 1.06 mg/dL Normal 0.60-1.30 [facility] Comment on above: Result Comment: METH OD TRACEABLE TO IDMS STANDARD Performed By: #### C BCA, 5643-2, 1797-8, CMP, 3040-3, 17170-9, PINR, 48659-9 #### [facility] ([id number]) [address], [address] [place] [address] GFR/1.73 sq M.predicted among non-blacks MDRD (S/P/Bld) [Vol rate/Area] 72 mL/min/{1.73_m2} Normal >59 [facility] Comment on above: Result Comment: Reported eGFR is based on the CKD-EPI 2020 equation that does not use a race coefficient. Performed By: #### C BCA, 5643-2, 1797-8, CMP, 3040-3, 81528-6, PINR, 52357-5 #### [facility] ([id number]) [address] [place] [address] Glucose [Mass/Vol] 93 mg/dL Normal 65-99 [facility] Comment on above: Performed By: #### C BCA, 5643-2, 1797-8, CMP, 3040-3, 62097-7, PINR, 45031-7 #### [facility] ([id number]) [address], [address] [place] [address] Potassium [Moles/Vol] 4.0 mmol/L Normal 3.5-5.0 [facility] Comment on above: Performed By: #### C BCA, 5643-2, 1797-8, CMP, 3040-3, 00668-5, PINR, 89737-3 #### [facility] ([id number]) [address], [address] [place] [address] Sodium [Moles/Vol] 142 mmol/L Normal 134-146 [facility] Comment on above: Performed By: #### C BCA, 5643-2, 1798-8, CMP, 3040-3, 49448-5, PINR, 39532-6 #### [facility] ([id number]) [address], [address] [place] [address] Urea nitrogen [Mass/Vol] 17 mg/dL Normal 5-27 [facility] Comment on above: Performed By: #### C BCA, 5643-2, 1798-8, CMP, 3040-3, 10916-6, PINR, 10362-5 #### [facility] ([id number]) [address], [address] [place] [address] Basic Metabolic Panelon - Anion gap [Moles/Vol] 6 mmol/L 5 - 15 mmol/L [facility] Calcium [Mass/Vol] 8.4 mg/dL Low 8.5 - 10. 5 mg/dL [facility] Chloride [Moles/Vol] 107 mmol/L 98 - 10 9 mmol/L [facility] CO2 [Moles/Vol] 29 mmol/L 22 - 32 mmol/L [facility] Creatinine [Mass/Vol] 1.06 mg/dL 0.60 - 1.30 mg/dL [facility] Comment on above: METHOD TRACEABLE TO IDMS STANDARD eGFR (CKD-EPI)non-race dependent 72 - PINF [facility] Comment on above: Reported eGFR is based on the CKD-EPI 2020 equation that does not use a race coefficient. Glucose [Mass/Vol] 93 mg/dL 65 - 99 mg/dL [facility] Interpretation and review of laboratory results Abnormal [facility] Potassium [Moles/Vol] 4 mmol/L 3.5 - 5.0 mmol/L [facility] Sodium [Moles/Vol] 142 mmol/L 134 - 146 mmol/L [facility] Urea nitrogen [Mass/Vol] 17 mg/dL 5 - 27 mg/dL [facility] CBC AND AUTO DIFFon 07-04- 25 ABSOLUTE BASOPHIL 0.1 X10E9/L Normal 0.0-0.2 [facility] Comment on above: Performed By: #### C BCA, 5643-2, 1797-8, CMP, 3040-3, 96376-9, PINR, 58807-7 #### [facility] ([id number]) [address], [address] [place] [address] ABSOLUTE NEUTROPHIL 4.7 X10E9/L Normal 1.5-6.6 [facility] Comment on above: Performed By: #### C BCA, 5643-2, 1797-8, CMP, 3040-3, 76279-2, PINR, 93118-0 #### [facility] ([id number]) [address], [address] [place] [address] Basophils/100 WBC (Bld) 0.8 % Normal [facility] Comment on above: Performed By: #### C BCA, 5643-2, 1797-8, CMP, 3040-3, 79687-5, PINR, 25139-6 #### [facility] ([id number]) [address], [address] [place] [address] Eosinophils (Bld) [#/Vol] 0.1 10*3/uL Normal 0.0-0.4 [facility] Comment on above: Performed By: #### C BCA, 5643-2, 1797-8, CMP, 3040-3, 43695-5, PINR, 82744-5 #### [facility] ([id number]) [address], [address] [place] [address] Eosinophils/100 WBC (Bld) 2.0 % Normal [facility] Comment on above: Performed By: #### C BCA, 5643-2, 1797-8, CMP, 3040-3, 01789-8, PINR, 23058-6 #### [facility] ([id number]) [address], [address] [place] [address] Erythrocyte distribution width (RBC) [Ratio] 15.0 % Normal 11.5-15.0 [facility] Comment on above: Performed By: #### C BCA, 5643-2, 1797-8, CMP, 3040-3, 56447-6, PINR, 01738-0 #### [facility] ([id number]) [address], [address] [place] [address] Hematocrit (Bld) [Volume fraction] 30.5 % Low 39-49 [facility] Comment on above: Performed By: #### C BCA, 5643-2, 1797-12, CMP, 3040-3, 13881-2, PINR, 38575-8 #### [facility] ([id number]) [address] [address] [place] [address] Hemoglobin (Bld) [Mass/Vol] 10.1 g/dL Low 13.0-17.0 [facility] Comment on above: Performed By: #### C BCA, 5643-2, 1797-12, CMP, 3040-3, 52684-9, PINR, 36130-9 #### [facility] ([id number]) [address] [address] [place] [address] Lymphocytes (Bld) [#/Vol] 0.9 10*3/uL Low 1.0-3.5 [facility] Comment on above: Performed By: #### C BCA, 5643-2, 8, CMP, 3040-3, 26064-4, PINR, 41608-9 #### [facility] ([id number]) [address] [address] [place] [address] Lymphocytes/100 WBC (Bld) 14.6 % Normal [facility] Comment on above: Performed By: #### C BCA, 5643-2, 1798-8, CMP, 3040-3, 28912-1, PINR, 03682-8 #### [facility] ([id number]) [address] [place] [address] MCH (RBC) [Entitic mass] 30.8 pg Normal 27-34 [facility] Comment on above: Performed By: #### C BCA, 5643-2, 8, CMP, 3040-3, 21193-4, PINR, 05538-9 #### [facility] ([id number]) [address] [place] [address] MCHC (RBC) [Mass/Vol] 33.0 g/dL Normal 32-36 [facility] Comment on above: Performed By: #### C BCA, 5643-2, 1797-12, CMP, 3040-3, 74467-6, PINR, 68916-7 #### [facility] ([id number]) [address] [place] [address] MCV (RBC) [Entitic vol] 94 fL Normal 80-100 P [facility] Comment on above: Performed By: #### C BCA, 5643-2, 1797-12, CMP, 3040-3, 31702-0, PINR, 16207-7 #### [facility] ([id number]) [address], [address] [place] [address] Monocytes (Bld) [#/Vol] 0.6 10*3/uL Normal 0-0.9 [facility] Comment on above: Performed By: #### C BCA, 5643-2, 8, CMP, 3040-3, 68402-2, PINR, 48179-7 #### [facility] ([id number]) [address] [address] [place] [address] Monocytes/100 WBC (Bld) 9.1 % Normal P [facility] Comment on above: Performed By: #### Kacey BCA, 5643-2, 8-8, CMP, 3040-3, 47802-6, PINR, 04258-4 #### [facility] ([id number]) [address] [place] [address] Neutrophils/100 WBC (Bld) 73.5 % Normal [facility] Comment on above: Performed By: #### C BCA, 5643-2, 8-8, CMP, 3040-3, 31928-2, PINR, 04069-3 #### [facility] ([id number]) [address] [place] [address] Platelet mean volume (Bld) [Entitic vol] 8.3 fL Normal 7-12 [facility] Comment on above: Performed By: #### C BCA, 5643-2, 1797-8, CMP, 3040-3, 30841-8, PINR, 65061-8 #### [facility] ([id number]) [address] [address] [place] [address] Platelets (Bld) [#/Vol] 228 10*3/uL Normal 150-450 [facility] Comment on above: Performed By: #### C BCA, 5643-2, 1797-8, CMP, 3040-3, 82372-1, PINR, 61375-6 #### [facility] ([id number]) [address] [place] [address] RBC COUNT 3.26 X10E12/L Low 4.10-5.70 [facility] Comment on above: Performed By: #### C BCA, 5643-2, 1797-8, CMP, 3040-3, 74889-8, PINR, 90897-5 #### [facility] ([id number]) [address] [place] [address] WBC (Bld) [#/Vol] 6.4 10*3/uL Normal 4.0-11.0 [facility] Comment on above: Performed By: #### C BCA, 5643-2, 1798-8, CMP, 3040-3, 08170-3, PINR, 73188-6 #### [facility] ([id number]) [address] [facility], [address] [place] [address] CBC auto differentialon 06-16 Basophils (Bld) [#/Vol] 0.1 10*3/uL [facility] Basophils/100 WBC (Bld) 0.8 % P [facility] Eosinophils (Bld) [#/Vol] 0.1 10*3/uL [facility] Eosinophils/100 WBC (Bld) 2 % [facility] Erythrocyte distribution width (RBC) [Ratio] 15 % 11.5 - 15.0 % [facility] Hematocrit (Bld) [Volume fraction] 30.5 % Low 39 - 49 % [facility] Hemoglobin (Bld) [Mass/Vol] 10.1 g/dL Low 13.0 - 17.0 g/dL [facility] Interpretation and review of laboratory results Abnormal [facility] Lymphocytes (Bld) [#/Vol] 0.9 10*3/uL Low [facility] Lymphocytes/100 WBC (Bld) 14.6 % [facility] MCH (RBC) [Entitic mass] 30.8 pg 27 - 34 pg [facility] MCHC (RBC) [Mass/Vol] 33 g/dL 32 - 3 6 g/dL [facility] MCV (RBC) [Entitic vol] 94 fL 80 - 100 fL [facility] Monocytes (Bld) [#/Vol] 0.6 10*3/uL [facility] Monocytes/100 WBC (Bld) 9.1 % [facility] Neutrophils (Bld) [#/Vol] 4.7 10*3/uL [facility] Neutrophils/100 WBC (Bld) 73.5 % [facility] Platelet mean volume (Bld) [Entitic vol] 8.3 fL 7 - 12 fL [facility] Platelets (Bld) [#/Vol] 228 10*3/uL [facility] RBC (Bld) [#/Vol] 3.26 10*6/uL Low [facility] WBC corrected for nucl RBC Auto (Bld) [#/Vol] 6.4 [facility] Glucose Glucometer (BldC) [M ass/Vol]on 07-04-2024 Glucose [Mass/Vol] 100 mg/dL High 65 - 99 mg/dL [facility] Interpretation and review of laboratory results Abnormal [facility] Glucose [Mass/Vol] 100 mg/dL High 65-99 [facility] Glucose [Mass/Vol] 109 mg/dL High 65 - 99 mg/dL [facility] Interpretation and review of laboratory results Abnormal [facility] Glucose [Mass/Vol] 109 mg/dL High 65-99 [facility] BASIC METABOLIC PANLon 07-03 Anion gap [Moles/Vol] 4 mmol/L Low 5-15 [facility] Comment on above: Performed By: #### C BCA, 5643-2, 1797-8, CMP, 3040-3, 49148-5, PINR, 52656-2 #### [facility] ([id number]) [address] [place] [address] Calcium [Mass/Vol] 8.3 mg/dL Low 8.5-10.5 [facility] Comment on above: Performed By: #### C BCA, 5643-2, 1797-8, CMP, 3040-3, 49333-8, PINR, 32222-6 #### [facility] ([id number]) [address] [place] [address] Chloride [Moles/Vol] 109 mmol/L Normal 98-109 [facility] Comment on above: Performed By: #### C BCA, 5643-2, 8-8, CMP, 3040-3, 41557-2, PINR, 75844-8 #### [facility] ([id number]) [address] [place] [address] CO2 [Moles/Vol] 30 mmol/L Normal 22-32 [facility] Comment on above: Performed By: #### C BCA, 5643-2, 1797-8, CMP, 3040-3, 85387-0, PINR, 07947-9 #### [facility] ([id number]) [address] [place] [address] Creatinine [Mass/Vol] 1.05 mg/dL Normal 0.60-1.30 [facility] Comment on above: Result Comment: METH OD TRACEABLE TO IDMS STANDARD Performed By: #### C BCA, 5643-2, 1797-8, CMP, 3040-3, 08763-1, PINR, 03776-0 #### [facility] ([id number]) [address], [address] [address] GFR/1.73 sq M.predicted among non-blacks MDRD (S/P/Bld) [Vol rate/Area] 73 mL/min/{1.73_m2} Normal >59 Pr [facility] Comment on above: Result Comment: Reported eGFR is based on the CKD-EPI 2020 equation that does not use a race coefficient. Performed By: #### C BCA, 5643-2, 1797-8, CMP, 3040-3, 48730-2, PINR, 41225-8 #### [facility] ([id number]) [address] [place] [address] Glucose [Mass/Vol] 116 mg/dL High 65-99 [facility] Comment on above: Performed By: #### C BCA, 5643-2, 1797-8, CMP, 3040-3, 53784-6, PINR, 57074-0 #### [facility] ([id number]) [address] [place] [address] Potassium [Moles/Vol] 4.2 mmol/L Normal 3.5-5.0 [facility] Comment on above: Performed By: #### C BCA, 5643-2, 1798-8, CMP, 3040-3, 10668-6, PINR, 19738-2 #### [facility] ([id number]) [address] [place] [address] Sodium [Moles/Vol] 143 mmol/L Normal 134-146 [facility] Comment on above: Performed By: #### C BCA, 5643-2, 1798-8, CMP, 3040-3, 57884-0, PINR, 03028-2 #### [facility] ([id number]) [address] [place] [address] Urea nitrogen [Mass/Vol] 14 mg/dL Normal 5-27 [facility] Comment on above: Performed By: #### C BCA, 5643-2, 1798-8, CMP, 3040-3, 60524-3, PINR, 00685-7 #### [facility] ([id number]) [address] [place] [address] Basic Metabolic Panelon - Anion gap [Moles/Vol] 4 mmol/L Low 5 - 15 mmol/L [facility] Calcium [Mass/Vol] 8.3 mg/dL Low 8.5 - 10. 5 mg/dL [facility] Chloride [Moles/Vol] 109 mmol/L 98 - 10 9 mmol/L [facility] CO2 [Moles/Vol] 30 mmol/L 22 - 32 mmol/L [facility] Creatinine [Mass/Vol] 1.05 mg/dL 0.60 - 1.30 mg/dL [facility] Comment on above: METHOD TRACEABLE TO IDMS STANDARD eGFR (CKD-EPI)non-race dependent 73 - PINF [facility] Comment on above: Reported eGFR is based on the CKD-EPI 2020 equation that does not use a race coefficient. Glucose [Mass/Vol] 116 mg/dL High 65 - 99 mg/dL [facility] Interpretation and review of laboratory results Abnormal [facility] Potassium [Moles/Vol] 4.2 mmol/L 3.5 - 5.0 mmol/L [facility] Sodium [Moles/Vol] 143 mmol/L 134 - 146 mmol/L [facility] Urea nitrogen [Mass/Vol] 14 mg/dL 5 - 27 mg/dL [facility] CBC AND AUTO DIFFon 07-03-19 25 ABSOLUTE BASOPHIL 0.0 X10E9/L Normal 0.0-0.2 [facility] Comment on above: Performed By: #### C BCA, 5643-2, 1797-8, CMP, 3040-3, 55882-7, PINR, 93240-2 #### [facility] ([id number]) [address] [place] [address] ABSOLUTE NEUTROPHIL 5.7 X10E9/L Normal 1.5-6.6 [facility] Comment on above: Performed By: #### C BCA, 5643-2, 8, CMP, 3040-3, 97437-3, PINR, 62471-2 #### [facility] ([id number]) [address] [place] [address] Basophils/100 WBC (Bld) 0.4 % Normal [facility] Comment on above: Performed By: #### C BCA, 5643-2, 8, CMP, 3040-3, 34574-2, PINR, 77821-3 #### [facility] ([id number]) [address] [place] [address] Eosinophils (Bld) [#/Vol] 0.1 10*3/uL Normal 0.0-0.4 [facility] Comment on above: Performed By: #### C BCA, 5643-2, 1797-8, CMP, 3040-3, 29143-5, PINR, 05547-9 #### [facility] ([id number]) [address] [place] [address] Eosinophils/100 WBC (Bld) 1.8 % Normal [facility] Comment on above: Performed By: #### C BCA, 5643-2, 1797-8, CMP, 3040-3, 35597-1, PINR, 86142-0 #### [facility] ([id number]) [address] [place] [address] Erythrocyte distribution width (RBC) [Ratio] 15.0 % Normal 11.5-15.0 [facility] Comment on above: Performed By: #### C BCA, 5643-2, 1797-8, CMP, 3040-3, 54166-6, PINR, 86225-0 #### [facility] ([id number]) [address] [place] [address] Hematocrit (Bld) [Volume fraction] 31.9 % Low 39-49 [facility] Comment on above: Performed By: #### C BCA, 5643-2, 8, CMP, 3040-3, 08703-5, PINR, 72087-4 #### [facility] ([id number]) [address] [place] [address] Hemoglobin (Bld) [Mass/Vol] 10.6 g/dL Low 13.0-17.0 [facility] Comment on above: Performed By: #### C BCA, 5643-2, 8, CMP, 3040-3, 03626-9, PINR, 53395-4 #### [facility] ([id number]) [address] [address] [place] [address] Lymphocytes (Bld) [#/Vol] 0.6 10*3/uL Low 1.0-3.5 [facility] Comment on above: Performed By: #### C BCA, 5643-2, 1797-8, CMP, 3040-3, 14271-9, PINR, 61318-5 #### [facility] ([id number]) [address] [address] [place] [address] Lymphocytes/100 WBC (Bld) 8.5 % Normal [facility] Comment on above: Performed By: #### C BCA, 5643-2, 1797-8, CMP, 3040-3, 73679-3, PINR, 54038-5 #### [facility] ([id number]) [address] [address] [place] [address] MCH (RBC) [Entitic mass] 31.1 pg Normal 27-34 [facility] Comment on above: Performed By: #### C BCA, 5643-2, 1797-, CMP, 3040-3, 96578-4, PINR, 17129-7 #### [facility] ([id number]) [address] [address] [place] [address] MCHC (RBC) [Mass/Vol] 33.2 g/dL Normal 32-36 [facility] Comment on above: Performed By: #### C BCA, 5643-2, 8, CMP, 3040-3, 71063-5, PINR, 70850-2 #### [facility] ([id number]) [address] [place] [address] MCV (RBC) [Entitic vol] 94 fL Normal 80-100 [facility] Comment on above: Performed By: #### C BCA, 5643-2, 8, CMP, 3040-3, 39677-4, PINR, 87358-1 #### [facility] ([id number]) [address] [address] [place] [address] Monocytes (Bld) [#/Vol] 0.6 10*3/uL Normal 0-0.9 [facility] Comment on above: Performed By: #### C BCA, 5643-2, 1797-8, CMP, 3040-3, 65594-4, PINR, 69923-7 #### [facility] ([id number]) [address] [place] [address] Monocytes/100 WBC (Bld) 8.1 % Normal P [facility] Comment on above: Performed By: #### C BCA, 5643-2, 8-8, CMP, 3040-3, 15541-7, PINR, 09929-8 #### [facility] ([id number]) [address] [place] [address] Neutrophils/100 WBC (Bld) 81.2 % Normal [facility] Comment on above: Performed By: #### C BCA, 5643-2, 1797-8, CMP, 3040-3, 71676-9, PINR, 34118-6 #### [facility] ([id number]) [address] [place] [address] Platelet mean volume (Bld) [Entitic vol] 8.4 fL Normal 7-12 [facility] Comment on above: Performed By: #### C BCA, 5643-2, 1797-8, CMP, 3040-3, 93196-3, PINR, 09431-2 #### [facility] ([id number]) [address] [place] [address] Platelets (Bld) [#/Vol] 216 10*3/uL Normal 150-450 [facility] Comment on above: Performed By: #### C BCA, 5643-2, 1797-8, CMP, 3040-3, 47036-1, PINR, 10766-9 #### [facility] ([id number]) [address] [place] [address] RBC COUNT 3.40 X10E12/L Low 4.10-5.70 [facility] Comment on above: Performed By: #### C BCA, 5643-2, 1797-8, CMP, 3040-3, 63069-2, PINR, 13469-5 #### [facility] ([id number]) [address] [place] [address] WBC (Bld) [#/Vol] 7.0 10*3/uL Normal 4.0-11.0 [facility] Comment on above: Performed By: #### C BCA, 5643-2, 1798-8, CMP, 3040-3, 38655-6, PINR, 83759-0 #### [facility] ([id number]) [address] [place] [address] CBC auto differentialon 06-15 Basophils (Bld) [#/Vol] 0 10*3/uL [facility] Basophils/100 WBC (Bld) 0.4 % [facility] Eosinophils (Bld) [#/Vol] 0.1 10*3/uL [facility] Eosinophils/100 WBC (Bld) 1.8 % [facility] Erythrocyte distribution width (RBC) [Ratio] 15 % 11.5 - 15.0 % [facility] Hematocrit (Bld) [Volume fraction] 31.9 % Low 39 - 49 % [facility] Hemoglobin (Bld) [Mass/Vol] 10.6 g/dL Low 13.0 - 17.0 g/dL [facility] Interpretation and review of laboratory results Abnormal [facility] Lymphocytes (Bld) [#/Vol] 0.6 10*3/uL Low [facility] Lymphocytes/100 WBC (Bld) 8.5 % [facility] MCH (RBC) [Entitic mass] 31.1 pg 27 - 34 pg [facility] MCHC (RBC) [Mass/Vol] 33.2 g/dL 32 - 3 6 g/dL [facility] MCV (RBC) [Entitic vol] 94 fL 80 - 100 fL [facility] Monocytes (Bld) [#/Vol] 0.6 10*3/uL [facility] Monocytes/100 WBC (Bld) 8.1 % P [facility] Neutrophils (Bld) [#/Vol] 5.7 10*3/uL [facility] Neutrophils/100 WBC (Bld) 81.2 % [facility] Platelet mean volume (Bld) [Entitic vol] 8.4 fL 7 - 12 fL [facility] Platelets (Bld) [#/Vol] 216 10*3/uL [facility] RBC (Bld) [#/Vol] 3.4 10*6/uL Low [facility] WBC corrected for nucl RBC Auto (Bld) [#/Vol] 7 [facility] Glucose Glucometer (BldC) [M ass/Vol]on 07-03-2024 Glucose [Mass/Vol] 90 mg/dL 65 - 99 mg/dL [facility] Glucose [Mass/Vol] 90 mg/dL Normal 65-99 [facility] [facility] Glucose [Mass/Vol] 101 mg/dL High 65 - 99 mg/dL [facility] Interpretation and review of laboratory results Abnormal [facility] Glucose [Mass/Vol] 101 mg/dL High 65-99 [facility] Glucose [Mass/Vol] 129 mg/dL High 65 - 99 mg/dL [facility] Interpretation and review of laboratory results Abnormal [facility] Glucose [Mass/Vol] 129 mg/dL High 65-99 [facility] Glucose [Mass/Vol] 129 mg/dL High 65 - 99 mg/dL [facility] Interpretation and review of laboratory results Abnormal [facility] Glucose [Mass/Vol] 129 mg/dL High 65-99 [facility] Glucose [Mass/Vol] 116 mg/dL High 65 - 99 mg/dL [facility] Interpretation and review of laboratory results Abnormal [facility] Glucose [Mass/Vol] 116 mg/dL High 65-99 [facility] Glucose [Mass/Vol] 125 mg/dL High 65 - 99 mg/dL [facility] Interpretation and review of laboratory results Abnormal [facility] Glucose [Mass/Vol] 125 mg/dL High 65-99 [facility] HGBon 07-03-2024 Hematocrit (Bld) [Volume fraction] 33.4 % Low 39-49 [facility] Comment on above: Performed By: #### C BCA, 5643-2, 1798-8, CMP, 3040-3, 60785-1, PINR, 62907-9 #### [facility] ([id number]) [address] [place] [address] Hemoglobin (Bld) [Mass/Vol] 11.0 g/dL Low 13.0-17.0 [facility] Comment on above: Performed By: #### C BCA, 5643-2, 1798-8, CMP, 3040-3, 21075-7, PINR, 78051-8 #### [facility] ([id number]) [address], [address] [place] [address] Hemoglobin and hematocrit, b loodon 07-03-2024 Hemoglobin (Bld) [Mass/Vol] 11 g/dL Low 13.0 - 17.0 g/dL [facility] Interpretation and review of laboratory results Abnormal [facility].doppler Lower extremity v ein - bilateralon [...] at the phone number beside their name. [facility] US.doppler Lower extremity v ein - bilateralOrdered By: Brian Valverde on 07-03-2024 [facility] Work Phone: BASIC METABOLIC PANLon 07-02 Anion gap [Moles/Vol] 8 mmol/L Normal 5-15 [facility] Comment on above: Performed By: #### C BCA, 5643-2, 1797-8, CMP, 3040-3, 38878-1, PINR, 92414-0 #### [facility] ([id number]) [address] [place] [address] Calcium [Mass/Vol] 8.2 mg/dL Low 8.5-10.5 [facility] Comment on above: Performed By: #### C BCA, 5643-2, 1797-8, CMP, 3040-3, 81731-6, PINR, 75324-9 #### [facility] ([id number]) [address], [address] [place] [address] Chloride [Moles/Vol] 108 mmol/L Normal 98-109 [facility] Comment on above: Performed By: #### C BCA, 5643-2, 1797-8, CMP, 3040-3, 22168-1, PINR, 36725-7 #### [facility] ([id number]) [address], [address] [place] [address] CO2 [Moles/Vol] 26 mmol/L Normal 22-32 [facility] Comment on above: Performed By: #### C BCA, 5643-2, 1797-8, CMP, 3040-3, 51715-4, PINR, 21796-5 #### [facility] ([id number]) [address], [address] [place] [address] Creatinine [Mass/Vol] 1.15 mg/dL Normal 0.60-1.30 [facility] Comment on above: Result Comment: METH OD TRACEABLE TO IDMS STANDARD Performed By: #### C BCA, 5643-2, 1797-8, CMP, 3040-3, 75680-0, PINR, 42753-1 #### [facility] ([id number]) [address] [address] GFR/1.73 sq M.predicted among non-blacks MDRD (S/P/Bld) [Vol rate/Area] 65 mL/min/{1.73_m2} Normal >59 Pr [facility] Comment on above: Result Comment: Reported eGFR is based on the CKD-EPI 2020 equation that does not use a race coefficient. Performed By: #### C BCA, 5643-2, 1797-8, CMP, 3040-3, 24041-2, PINR, 17936-7 #### [facility] ([id number]) [address] [place] [address] Glucose [Mass/Vol] 93 mg/dL Normal 65-99 [facility] Comment on above: Performed By: #### C BCA, 5643-2, 1797-8, CMP, 3040-3, 26266-7, PINR, 72916-0 #### [facility] ([id number]) [address], [address] [address] Potassium [Moles/Vol] 4.1 mmol/L Normal 3.5-5.0 [facility] Comment on above: Performed By: #### C BCA, 5643-2, 1797-8, CMP, 3040-3, 23218-0, PINR, 43430-9 #### [facility] ([id number]) [address], [address] [place] [address] Sodium [Moles/Vol] 142 mmol/L Normal 134-146 [facility] Comment on above: Performed By: #### C BCA, 5643-2, 1797-8, CMP, 3040-3, 73838-5, PINR, 70344-2 #### [facility] ([id number]) [address], [address] [place] [address] Urea nitrogen [Mass/Vol] 13 mg/dL Normal 5-27 [facility] Comment on above: Performed By: #### C BCA, 5643-2, 8-8, CMP, 3040-3, 32114-0, PINR, 63197-4 #### [facility] ([id number]) [address] [facility] [facility], [address] [place] [address] Basic Metabolic Panelon 06-15 Anion gap [Moles/Vol] 8 mmol/L 5 - 15 mmol/L [facility] Calcium [Mass/Vol] 8.2 mg/dL Low 8.5 - 10. 5 mg/dL [facility] Chloride [Moles/Vol] 108 mmol/L 98 - 10 9 mmol/L [facility] CO2 [Moles/Vol] 26 mmol/L 22 - 32 mmol/L [facility] Creatinine [Mass/Vol] 1.15 mg/dL 0.60 - 1.30 mg/dL [facility] Comment on above: METHOD TRACEABLE TO IDNY STANDARD eGFR (CKD-EPI)non-race dependent 65 - PINF [facility] Comment on above: Reported eGFR is based on the CKD-EPI 2020 equation that does not use a race coefficient. Glucose [Mass/Vol] 93 mg/dL 65 - 99 mg/dL [facility] Interpretation and review of laboratory results Abnormal [facility] Potassium [Moles/Vol] 4.1 mmol/L 3.5 - 5.0 mmol/L [facility] Sodium [Moles/Vol] 142 mmol/L 134 - 146 mmol/L [facility] Urea nitrogen [Mass/Vol] 13 mg/dL 5 - 27 mg/dL [facility] CBC AND AUTO DIFFon 07-02-19 25 ABSOLUTE BASOPHIL 0.0 X10E9/L Normal 0.0-0.2 [facility] Comment on above: Performed By: #### C BCA, 5643-2, 1798-8, CMP, 3040-3, 10036-7, PINR, 48575-4 #### [facility] ([id number]) [address], [address] [place] [address] ABSOLUTE NEUTROPHIL 6.1 X10E9/L Normal 1.5-6.6 [facility] Comment on above: Performed By: #### C BCA, 5643-2, 8, CMP, 3040-3, 57724-4, PINR, 73454-7 #### [facility] ([id number]) [address], [address] [place] [address] Basophils/100 WBC (Bld) 0.3 % Normal [facility] Comment on above: Performed By: #### C BCA, 5643-2, 1797-12, CMP, 3040-3, 66983-5, PINR, 52147-4 #### [facility] ([id number]) [address], [address] [address] Eosinophils (Bld) [#/Vol] 0.1 10*3/uL Normal 0.0-0.4 [facility] Comment on above: Performed By: #### C BCA, 5643-2, 1797-12, CMP, 3040-3, 00582-8, PINR, 52927-1 #### [facility] ([id number]) [address] [address] Eosinophils/100 WBC (Bld) 1.5 % Normal [facility] Comment on above: Performed By: #### C BCA, 5643-2, 8, CMP, 3040-3, 90466-5, PINR, 95927-3 #### [facility] ([id number]) [address] [place] [address] Erythrocyte distribution width (RBC) [Ratio] 15.5 % High 11.5-15.0 [facility] Comment on above: Performed By: #### C BCA, 5643-2, 8, CMP, 3040-3, 85977-1, PINR, 73565-8 #### [facility] ([id number]) [address], [address] [place] [address] Hematocrit (Bld) [Volume fraction] 31.2 % Low 39-49 [facility] Comment on above: Performed By: #### C BCA, 5643-2, 1797-8, CMP, 3040-3, 64097-1, PINR, 19478-6 #### [facility] ([id number]) [address], [address] [place] [address] Hemoglobin (Bld) [Mass/Vol] 10.7 g/dL Low 13.0-17.0 [facility] Comment on above: Performed By: #### C BCA, 5643-2, 1797-12, CMP, 3040-3, 70438-5, PINR, 05394-2 #### [facility] ([id number]) [address], [address] [place] [address] Lymphocytes (Bld) [#/Vol] 0.6 10*3/uL Low 1.0-3.5 [facility] Comment on above: Performed By: #### C BCA, 5643-2, 1797-12, CMP, 3040-3, 66193-4, PINR, 44695-2 #### [facility] ([id number]) [address], [address] [place] [address] Lymphocytes/100 WBC (Bld) 8.9 % Normal [facility] Comment on above: Performed By: #### C BCA, 5643-2, 8, CMP, 3040-3, 76384-2, PINR, 04776-6 #### [facility] ([id number]) [address], [address] [place] [address] MCH (RBC) [Entitic mass] 31.8 pg Normal 27-34 [facility] Comment on above: Performed By: #### C BCA, 5643-2, 1797-8, CMP, 3040-3, 38990-2, PINR, 04745-9 #### [facility] ([id number]) [address], [address] [place] [address] MCHC (RBC) [Mass/Vol] 34.3 g/dL Normal 32-36 [facility] Comment on above: Performed By: #### C BCA, 5643-2, 1797-8, CMP, 3040-3, 69851-7, PINR, 79830-6 #### [facility] ([id number]) [address], [address] [place] [address] MCV (RBC) [Entitic vol] 93 fL Normal 80-100 [facility] Comment on above: Performed By: #### C BCA, 5643-2, 1797-8, CMP, 3040-3, 27705-0, PINR, 82174-5 #### [facility] ([id number]) [address], [address] [place] [address] Monocytes (Bld) [#/Vol] 0.4 10*3/uL Normal 0-0.9 [facility] Comment on above: Performed By: #### C BCA, 5643-2, 1797-8, CMP, 3040-3, 09557-9, PINR, 59479-6 #### [facility] ([id number]) [address], [address] [place] [address] Monocytes/100 WBC (Bld) 5.9 % Normal P [facility] Comment on above: Performed By: #### C BCA, 5643-2, 1797-8, CMP, 3040-3, 48772-7, PINR, 76313-8 #### [facility] ([id number]) [address], [address] [place] [address] Neutrophils/100 WBC (Bld) 83.4 % Normal [facility] Comment on above: Performed By: #### C BCA, 5643-2, 1797-8, CMP, 3040-3, 08523-4, PINR, 99966-0 #### [facility] ([id number]) [address] [address] Platelet mean volume (Bld) [Entitic vol] 8.5 fL Normal 7-12 [facility] Comment on above: Performed By: #### C BCA, 5643-2, 1797-8, CMP, 3040-3, 99786-3, PINR, 67268-7 #### [facility] ([id number]) [address] [address] Platelets (Bld) [#/Vol] 228 10*3/uL Normal 150-450 [facility] Comment on above: Performed By: #### C BCA, 5643-2, 1797-8, CMP, 3040-3, 65754-3, PINR, 90455-8 #### [facility] ([id number]) [address] [address] RBC COUNT 3.36 X10E12/L Low 4.10-5.70 [facility] Comment on above: Performed By: #### C BCA, 5643-2, 1797-8, CMP, 3040-3, 06475-9, PINR, 13901-1 #### [facility] ([id number]) [address] [address] WBC (Bld) [#/Vol] 7.3 10*3/uL Normal 4.0-11.0 [facility] Comment on above: Performed By: #### C BCA, 5643-2, 1797-8, CMP, 3040-3, 98490-8, PINR, 53861-3 #### [facility] ([id number]) [address] [address] CBC auto differentialon 06-15 Basophils (Bld) [#/Vol] 0 10*3/uL P [facility] Basophils/100 WBC (Bld) 0.3 % P [facility] Eosinophils (Bld) [#/Vol] 0.1 10*3/uL [facility] Eosinophils/100 WBC (Bld) 1.5 % [facility] Erythrocyte distribution width (RBC) [Ratio] 15.5 % High 11.5 - 15.0 % [facility] Hematocrit (Bld) [Volume fraction] 31.2 % Low 39 - 49 % [facility] Hemoglobin (Bld) [Mass/Vol] 10.7 g/dL Low 13.0 - 17.0 g/dL [facility] Interpretation and review of laboratory results Abnormal [facility] Lymphocytes (Bld) [#/Vol] 0.6 10*3/uL Low [facility] Lymphocytes/100 WBC (Bld) 8.9 % [facility] MCH (RBC) [Entitic mass] 31.8 pg 27 - 34 pg [facility] MCHC (RBC) [Mass/Vol] 34.3 g/dL 32 - 3 6 g/dL [facility] MCV (RBC) [Entitic vol] 93 fL 80 - 100 fL [facility] Monocytes (Bld) [#/Vol] 0.4 10*3/uL [facility] Monocytes/100 WBC (Bld) 5.9 % [facility] Neutrophils (Bld) [#/Vol] 6.1 10*3/uL [facility] Neutrophils/100 WBC (Bld) 83.4 % [facility] Platelet mean volume (Bld) [Entitic vol] 8.5 fL 7 - 12 fL [facility] Platelets (Bld) [#/Vol] 228 10*3/uL [facility] RBC (Bld) [#/Vol] 3.36 10*6/uL Low [facility] WBC corrected for nucl RBC Auto (Bld) [#/Vol] 7.3 [facility] Glucose Glucometer (BldC) [M ass/Vol]on 07-02-2024 Glucose [Mass/Vol] 103 mg/dL High 65 - 99 mg/dL [facility] Interpretation and review of laboratory results Abnormal [facility] Glucose [Mass/Vol] 103 mg/dL High 65-99 [facility] Glucose [Mass/Vol] 144 mg/dL High 65 - 99 mg/dL [facility] Interpretation and review of laboratory results Abnormal [facility] Glucose [Mass/Vol] 144 mg/dL High 65-99 [facility] Glucose [Mass/Vol] 158 mg/dL High 65 - 99 mg/dL [facility] Interpretation and review of laboratory results Abnormal [facility] Glucose [Mass/Vol] 158 mg/dL High 65-99 [facility] Glucose [Mass/Vol] 87 mg/dL 65 - 99 mg/dL [facility] Glucose [Mass/Vol] 87 mg/dL Normal 65-99 [facility] Glucose [Mass/Vol] 90 mg/dL 65 - 99 mg/dL [facility] Glucose [Mass/Vol] 90 mg/dL Normal 65-99 [facility] Hematocrit (Bld) [Volume fraction] 34.3 % Low 39-49 [facility] Comment on above: Performed By: #### C HERNANDEZ, 5643-2, 1798-8, CMP, 3040-3, 14779-5, PINR, 31113-9 #### [facility] ([id number]) [address] [place] [address] Hemoglobin (Bld) [Mass/Vol] 11.4 g/dL Low 13.0-17.0 [facility] Comment on above: Performed By: #### C HERNANDEZ, 5643-2, 1798-8, CMP, 3040-3, 04454-0, PINR, 24132-0 #### [facility] ([id number]) [address] [place] [address] Hemoglobin and hematocrit, b loodon 07-02-2024 Hematocrit (Bld) [Volume fraction] 34.3 % Low 39 - 49 % [facility] Hemoglobin (Bld) [Mass/Vol] 11.4 g/dL Low 13.0 - 17.0 g/dL [facility] Interpretation and review of laboratory results Abnormal [facility] US.doppler Lower extremity v ein - bilateralon 07-02-2024 Radiology Study observation (narrative) [facility] BASIC METABOLIC PANLon 07-01 Anion gap [Moles/Vol] 5 mmol/L Normal 5-15 [facility] Comment on above: Performed By: #### C BCA, 5643-2, 1798-8, CMP, 3040-3, 83867-0, PINR, 73135-0 #### [facility] ([id number]) [address] [place] [address] Calcium [Mass/Vol] 7.9 mg/dL Low 8.5-10.5 [facility] Comment on above: Performed By: #### C BCA, 5643-2, 8-8, CMP, 3040-3, 99599-2, PINR, 63637-3 #### [facility] ([id number]) [address], [address] [place] [address] Chloride [Moles/Vol] 111 mmol/L High 98-109 [facility] Comment on above: Performed By: #### C BCA, 5643-2, 8-8, CMP, 3040-3, 48811-4, PINR, 72689-0 #### [facility] ([id number]) [address] [place] [address] CO2 [Moles/Vol] 25 mmol/L Normal 22-32 [facility] Comment on above: Performed By: #### C BCA, 5643-2, 1798-8, CMP, 3040-3, 78652-3, PINR, 47829-7 #### [facility] ([id number]) [address] [place] [address] Creatinine [Mass/Vol] 1.24 mg/dL Normal 0.60-1.30 [facility] Comment on above: Result Comment: METH OD TRACEABLE TO IDMS STANDARD Performed By: #### C BCA, 5643-2, 1797-8, CMP, 3040-3, 10080-4, PINR, 99549-8 #### [facility] ([id number]) [address] [place] [address] GFR/1.73 sq M.predicted among non-blacks MDRD (S/P/Bld) [Vol rate/Area] 60 mL/min/{1.73_m2} Normal >59 Pr [facility] Comment on above: Result Comment: Reported eGFR is based on the CKD-EPI 2020 equation that does not use a race coefficient. Performed By: #### C BCA, 5643-2, 1797-8, CMP, 3040-3, 95776-8, PINR, 54329-7 #### [facility] ([id number]) [address], [address] [place] [address] Glucose [Mass/Vol] 103 mg/dL High 65-99 [facility] Comment on above: Performed By: #### C BCA, 5643-2, 1797-8, CMP, 3040-3, 35776-9, PINR, 00324-6 #### [facility] ([id number]) [address], [address] [place] [address] Potassium [Moles/Vol] 3.7 mmol/L Normal 3.5-5.0 [facility] Comment on above: Performed By: #### C BCA, 5643-2, 1797-8, CMP, 3040-3, 44866-3, PINR, 41132-6 #### [facility] ([id number]) [address] [place] [address] Sodium [Moles/Vol] 141 mmol/L Normal 134-146 [facility] Comment on above: Performed By: #### C BCA, 5643-2, 1798-8, CMP, 3040-3, 29065-7, PINR, 73327-4 #### [facility] ([id number]) [address] [place] [address] Urea nitrogen [Mass/Vol] 16 mg/dL Normal 5-27 [facility] Comment on above: Performed By: #### C BCA, 5643-2, 1798-8, CMP, 3040-3, 60744-2, PINR, 08401-5 #### [facility] ([id number]) [address] [facility] [address], [address] [place] [address] Basic Metabolic Panelon 06-15 Anion gap [Moles/Vol] 5 mmol/L 5 - 15 mmol/L [facility] Calcium [Mass/Vol] 7.9 mg/dL Low 8.5 - 10. 5 mg/dL [facility] Chloride [Moles/Vol] 111 mmol/L High 98 - 10 9 mmol/L [facility] CO2 [Moles/Vol] 25 mmol/L 22 - 32 mmol/L [facility] Creatinine [Mass/Vol] 1.24 mg/dL 0.60 - 1.30 mg/dL [facility] Comment on above: METHOD TRACEABLE TO IDNY STANDARD eGFR (CKD-EPI)non-race dependent 60 - PINF [facility] Comment on above: Reported eGFR is based on the CKD-EPI 2020 equation that does not use a race coefficient. Glucose [Mass/Vol] 103 mg/dL High 65 - 99 mg/dL [facility] Interpretation and review of laboratory results Abnormal [facility] Potassium [Moles/Vol] 3.7 mmol/L 3.5 - 5.0 mmol/L [facility] Sodium [Moles/Vol] 141 mmol/L 134 - 146 mmol/L [facility] Urea nitrogen [Mass/Vol] 16 mg/dL 5 - 27 mg/dL [facility] CBC AND AUTO DIFFon 07-01-19 25 ABSOLUTE BASOPHIL 0.0 X10E9/L Normal 0.0-0.2 [facility] Comment on above: Performed By: #### C BCA, 5643-2, 1797-8, CMP, 3040-3, 52864-2, PINR, 50587-1 #### [facility] ([id number]) [address] [place] [address] ABSOLUTE NEUTROPHIL 8.1 X10E9/L High 1.5-6.6 [facility] Comment on above: Performed By: #### C BCA, 5643-2, 1797-8, CMP, 3040-3, 40930-4, PINR, 32396-8 #### [facility] ([id number]) [address] [place] [address] Basophils/100 WBC (Bld) 0.4 % Normal [facility] Comment on above: Performed By: #### C BCA, 5643-2, 1797-8, CMP, 3040-3, 70272-5, PINR, 90252-4 #### [facility] ([id number]) [address] [place] [address] Eosinophils (Bld) [#/Vol] 0.1 10*3/uL Normal 0.0-0.4 [facility] Comment on above: Performed By: #### C BCA, 5643-2, 1797-8, CMP, 3040-3, 14895-2, PINR, 15367-2 #### [facility] ([id number]) [address] [place] [address] Eosinophils/100 WBC (Bld) 1.5 % Normal [facility] Comment on above: Performed By: #### C BCA, 5643-2, 1797-8, CMP, 3040-3, 67851-3, PINR, 55178-2 #### [facility] ([id number]) [address] [place] [address] Erythrocyte distribution width (RBC) [Ratio] 15.7 % High 11.5-15.0 [facility] Comment on above: Performed By: #### C BCA, 5643-2, 1797-8, CMP, 3040-3, 09077-9, PINR, 29963-5 #### [facility] ([id number]) [address] [place] [address] Hematocrit (Bld) [Volume fraction] 29.9 % Low 39-49 [facility] Comment on above: Performed By: #### C BCA, 5643-2, 1797-8, CMP, 3040-3, 35310-1, PINR, 03595-5 #### [facility] ([id number]) [address] [place] [address] Hemoglobin (Bld) [Mass/Vol] 10.2 g/dL Low 13.0-17.0 [facility] Comment on above: Performed By: #### C BCA, 5643-2, 8, CMP, 3040-3, 62493-3, PINR, 26814-8 #### [facility] ([id number]) [address] [place] [address] Lymphocytes (Bld) [#/Vol] 0.7 10*3/uL Low 1.0-3.5 [facility] Comment on above: Performed By: #### C BCA, 5643-2, 8, CMP, 3040-3, 62060-7, PINR, 40535-3 #### [facility] ([id number]) [address] [place] [address] Lymphocytes/100 WBC (Bld) 6.8 % Normal [facility] Comment on above: Performed By: #### C BCA, 5643-2, 1797-8, CMP, 3040-3, 13353-5, PINR, 88741-3 #### [facility] ([id number]) [address] [place] [address] MCH (RBC) [Entitic mass] 31.3 pg Normal 27-34 [facility] Comment on above: Performed By: #### C BCA, 5643-2, 1797-8, CMP, 3040-3, 15272-5, PINR, 27929-9 #### [facility] ([id number]) [address] [place] [address] MCHC (RBC) [Mass/Vol] 34.2 g/dL Normal 32-36 [facility] Comment on above: Performed By: #### C BCA, 5643-2, 8, CMP, 3040-3, 23403-1, PINR, 50115-7 #### [facility] ([id number]) [address] [place] [address] MCV (RBC) [Entitic vol] 92 fL Normal 80-100 P [facility] Comment on above: Performed By: #### C BCA, 5643-2, 1797-8, CMP, 3040-3, 09590-5, PINR, 41176-5 #### [facility] ([id number]) [address] [address] Monocytes (Bld) [#/Vol] 0.6 10*3/uL Normal 0-0.9 [facility] Comment on above: Performed By: #### C BCA, 5643-2, 8, CMP, 3040-3, 38225-2, PINR, 95570-3 #### [facility] ([id number]) [address] [address] [place] [address] Monocytes/100 WBC (Bld) 6.3 % Normal P [facility] Comment on above: Performed By: #### C BCA, 5643-2, 1797-8, CMP, 3040-3, 79431-0, PINR, 66641-7 #### [facility] ([id number]) [address] [address] [place] [address] Neutrophils/100 WBC (Bld) 85.0 % Normal [facility] Comment on above: Performed By: #### C BCA, 5643-2, 1797-8, CMP, 3040-3, 10997-9, PINR, 61507-5 #### [facility] ([id number]) [address] [place] [address] Platelet mean volume (Bld) [Entitic vol] 8.6 fL Normal 7-12 [place] [facility] Comment on above: Performed By: #### C BCA, 5643-2, 1797-8, CMP, 3040-3, 03046-5, PINR, [id number] #### [facility] ([id number]) [address] [address] Platelets (Bld) [#/Vol] 235 10*3/uL Normal 150-450 [facility] Comment on above: Performed By: #### C BCA, 5643-2, 1797-8, CMP, 3040-3, 97458-7, PINR, 23847-0 #### [facility] ([id number]) [address] [address] RBC COUNT 3.27 X10E12/L Low 4.10-5.70 [facility] Comment on above: Performed By: #### C BCA, 5643-2, 1797-8, CMP, 3040-3, 92760-4, PINR, 83138-6 #### [facility] ([id number]) [address] [place] [address] WBC (Bld) [#/Vol] 9.5 10*3/uL Normal 4.0-11.0 [facility] Comment on above: Performed By: #### C BCA, 5643-2, 1797-8, CMP, 3040-3, 71516-3, PINR, 57771-2 #### [facility] ([id number]) [address] [address], [address] [place] [address] CBC auto differentialon 06-15 Basophils (Bld) [#/Vol] 0 10*3/uL [facility] Basophils/100 WBC (Bld) 0.4 % [facility] Eosinophils (Bld) [#/Vol] 0.1 10*3/uL [facility] Eosinophils/100 WBC (Bld) 1.5 % [facility] Erythrocyte distribution width (RBC) [Ratio] 15.7 % High 11.5 - 15.0 % [facility] Hematocrit (Bld) [Volume fraction] 29.9 % Low 39 - 49 % [facility] Hemoglobin (Bld) [Mass/Vol] 10.2 g/dL Low 13.0 - 17.0 g/dL [facility] Interpretation and review of laboratory results Abnormal [facility] Lymphocytes (Bld) [#/Vol] 0.7 10*3/uL Low [facility] Lymphocytes/100 WBC (Bld) 6.8 % [facility] MCH (RBC) [Entitic mass] 31.3 pg 27 - 34 pg [facility] MCHC (RBC) [Mass/Vol] 34.2 g/dL 32 - 3 6 g/dL [facility] MCV (RBC) [Entitic vol] 92 fL 80 - 100 fL [facility] Monocytes (Bld) [#/Vol] 0.6 10*3/uL [facility] Monocytes/100 WBC (Bld) 6.3 % [facility] Neutrophils (Bld) [#/Vol] 8.1 10*3/uL High [facility] Neutrophils/100 WBC (Bld) 85 % [facility] Platelet mean volume (Bld) [Entitic vol] 8.6 fL 7 - 12 fL [facility] Platelets (Bld) [#/Vol] 235 10*3/uL [facility] RBC (Bld) [#/Vol] 3.27 10*6/uL Low [facility] WBC corrected for nucl RBC Auto (Bld) [#/Vol] 9.5 [facility] Calcium.ionized (Bld) [Mass/ Vol]on 07-01-2024 IONIZED CALCIUM 4.8 mg/dL Normal 4.5-5.3 [facility] Comment on above: Performed By: #### C BCA, 5643-2, 1798-8, CMP, 3040-3, 00540-5, PINR, 55722-9 #### [facility] ([id number]) [address] [place] [address], [address] [place] [address] Glucose Glucometer (BldC) [M ass/Vol]on 07-01-2024 Glucose [Mass/Vol] 106 mg/dL High 65 - 99 mg/dL [facility] Interpretation and review of laboratory results Abnormal [facility] Glucose [Mass/Vol] 106 mg/dL High 65-99 [facility] Glucose [Mass/Vol] 133 mg/dL High 65 - 99 mg/dL [facility] Interpretation and review of laboratory results Abnormal [facility] Glucose [Mass/Vol] 133 mg/dL High 65-99 [facility] Glucose [Mass/Vol] 96 mg/dL 65 - 99 mg/dL [facility] Glucose [Mass/Vol] 96 mg/dL Normal 65-99 [facility] Glucose [Mass/Vol] 118 mg/dL High 65 - 99 mg/dL [facility] Interpretation and review of laboratory results Abnormal [facility] Glucose [Mass/Vol] 118 mg/dL High 65-99 [facility] Glucose [Mass/Vol] 92 mg/dL 65 - 99 mg/dL [facility] Glucose [Mass/Vol] 92 mg/dL Normal 65-99 [facility] Glucose [Mass/Vol] 90 mg/dL 65 - 99 mg/dL [facility] Glucose [Mass/Vol] 90 mg/dL Normal 65-99 [facility] HGBon 07-01-2024 Hematocrit (Bld) [Volume fraction] 31.8 % Low 39-49 [facility] Comment on above: Performed By: #### C BCA, 5643-2, 1798-8, CMP, 3040-3, 39573-0, PINR, 91438-1 #### [facility] ([id number]) [address], [address] [place] [address] Hemoglobin (Bld) [Mass/Vol] 10.6 g/dL Low 13.0-17.0 [facility] Comment on above: Performed By: #### C BCA, 5643-2, 1797-8, CMP, 3040-3, 33398-6, PINR, 27068-9 #### [facility] ([id number]) [address], [address] [place] [address] Hemoglobin and hematocrit, b loodon 07-01-2024 Hematocrit (Bld) [Volume fraction] 31.8 % Low 39 - 49 % [facility] Hemoglobin (Bld) [Mass/Vol] 10.6 g/dL Low 13.0 - 17.0 g/dL [facility] Interpretation and review of laboratory results Abnormal [facility] Ionized calciumon 07-01-2024 Calcium.ionized (Bld) [Mass/Vol] 4.8 mg/dL 4.5 - 5.3 mg/dL [facility] Ionized magnesiumon 07-01-19 Magnesium Ionized ISE (Bld) [Moles/Vol] 0.55 mmol/L 0.45 - 0.74 mmol/L [facility] Comment on above: NEW REFERENCE RANGE Magnesium Ionized ISE (Bld) [Moles/Vol]on 07-01-2024 Magnesium [Moles/Vol] 0.55 mmol/L Normal 0.45-0.74 [facility] Comment on above: Result Comment: NEW REFERENCE RANGE Performed By: #### C BCA, 5643-2, 8-8, CMP, 3040-3, 47449-3, PINR, 12742-9 #### [facility] ([id number]) [address], [address] [place] [address] No Panel Informationon 07-01 [facility] PHOSPHORUSon 07-01-2024 Phosphate [Mass/Vol] 2.4 mg/dL Normal 2.4-4.9 [facility] Comment on above: Performed By: #### C BCA, 5643-2, 1798-8, CMP, 3040-3, 22037-5, PINR, 72701-7 #### [facility] ([id number]) [address], [address] [place] [address] POTASSIUMon 07-01-2024 Potassium [Moles/Vol] 4.2 mmol/L Normal 3.5-5.0 [facility] Comment on above: Performed By: #### C BCA, 5643-2, 8-8, CMP, 3040-3, 75390-2, PINR, 14455-5 #### [facility] ([id number]) [address], [address] [place] [address] Potassium [Moles/Vol] 3.8 mmol/L Normal 3.5-5.0 [facility] Comment on above: Performed By: #### C BCA, 5643-2, 8-8, CMP, 3040-3, 01055-8, PINR, 68333-3 #### [facility] ([id number]) [address], [address] [place] [address] Phosphoruson 07-01-2024 Phosphate [Mass/Vol] 2.4 mg/dL 2.4 - 4 .9 mg/dL [facility] Potassiumon 07-01-2024 Potassium [Moles/Vol] 4.2 mmol/L 3.5 - 5.0 mmol/L [facility] Potassium [Moles/Vol] 3.8 mmol/L 3.5 - 5.0 mmol/L [facility] Potassium [Moles/Vol]on 06-15 [facility] BASIC METABOLIC PANLon 06-30 Anion gap [Moles/Vol] 8 mmol/L Normal 5-15 [facility] Comment on above: Performed By: #### C BCA, 5643-2, 1797-8, CMP, 3040-3, 40847-4, PINR, 03499-1 #### [facility] ([id number]) [address], [address] [place] [address] Calcium [Mass/Vol] 7.4 mg/dL Low 8.5-10.5 [facility] Comment on above: Performed By: #### C BCA, 5643-2, 1797-8, CMP, 3040-3, 73081-8, PINR, 57384-5 #### [facility] ([id number]) [address], [address] [place] [address] Chloride [Moles/Vol] 112 mmol/L High 98-109 [facility] Comment on above: Performed By: #### C BCA, 5643-2, 1797-8, CMP, 3040-3, 44409-8, PINR, 61406-3 #### [facility] ([id number]) [address], [address] [place] [address] CO2 [Moles/Vol] 22 mmol/L Normal 22-32 [facility] Comment on above: Performed By: #### C BCA, 5643-2, 1797-8, CMP, 3040-3, 68748-6, PINR, 71128-7 #### [facility] ([id number]) [address], [address] [place] [address] Creatinine [Mass/Vol] 1.39 mg/dL High 0.60-1.30 [facility] Comment on above: Result Comment: METH OD TRACEABLE TO IDMS STANDARD Performed By: #### C BCA, 5643-2, 1797-8, CMP, 3040-3, 26431-7, PINR, 86855-7 #### [facility] ([id number]) [address] [address] GFR/1.73 sq M.predicted among non-blacks MDRD (S/P/Bld) [Vol rate/Area] 52 mL/min/{1.73_m2} Low >59 Pr [facility] Comment on above: Result Comment: Reported eGFR is based on the CKD-EPI 2020 equation that does not use a race coefficient. Performed By: #### C BCA, 5643-2, 8, CMP, 3040-3, 35808-4, PINR, 73967-8 #### [facility] ([id number]) [address] [address] Glucose [Mass/Vol] 69 mg/dL Normal 65-99 [facility] Comment on above: Performed By: #### C BCA, 5643-2, 1797-12, CMP, 3040-3, 63619-2, PINR, 94483-8 #### [facility] ([id number]) [address] [address] Potassium [Moles/Vol] 4.2 mmol/L Normal 3.5-5.0 [facility] Comment on above: Performed By: #### C BCA, 5643-2, 1797-12, CMP, 3040-3, 69675-2, PINR, 43711-6 #### [facility] ([id number]) [address] [address] Sodium [Moles/Vol] 142 mmol/L Normal 134-146 [facility] Comment on above: Performed By: #### C BCA, 5643-2, 8, CMP, 3040-3, 98681-1, PINR, 09091-2 #### [facility] ([id number]) [address] [address] Urea nitrogen [Mass/Vol] 20 mg/dL Normal 5-27 [facility] Comment on above: Performed By: #### C BCA, 5643-2, 1798-8, CMP, 3040-3, 98733-1, PINR, 59563-2 #### [facility] ([id number]) [address] [facility], [address] [place] [address] Bacteria identified Cx Nom ( U)on 06-30-2024 Service comment (Unsp spec) [Interp] URINE RECEIVED WITHOUT PRESERVATIVE [facility] Service comment (Unsp spec) [Interp] NO GROWTH AT <1000 CFU/mL [facility] Basic Metabolic Panelon 06-15 Anion gap [Moles/Vol] 8 mmol/L 5 - 15 mmol/L [facility] Calcium [Mass/Vol] 7.4 mg/dL Low 8.5 - 10. 5 mg/dL [facility] Chloride [Moles/Vol] 112 mmol/L High 98 - 10 9 mmol/L [facility] CO2 [Moles/Vol] 22 mmol/L 22 - 32 mmol/L [facility] Creatinine [Mass/Vol] 1.39 mg/dL High 0.60 - 1.30 mg/dL [facility] Comment on above: METHOD TRACEABLE TO IDNY STANDARD eGFR (CKD-EPI)non-race dependent 52 Low - PINF [facility] Comment on above: Reported eGFR is based on the CKD-EPI 2020 equation that does not use a race coefficient. Glucose [Mass/Vol] 69 mg/dL 65 - 99 mg/dL [facility] Interpretation and review of laboratory results Abnormal [facility] Potassium [Moles/Vol] 4.2 mmol/L 3.5 - 5.0 mmol/L [facility] Sodium [Moles/Vol] 142 mmol/L 134 - 146 mmol/L [facility] Urea nitrogen [Mass/Vol] 20 mg/dL 5 - 27 mg/dL [facility] CBC AND AUTO DIFFon 06-30-19 25 ABSOLUTE BASOPHIL 0.1 X10E9/L Normal 0.0-0.2 [facility] Comment on above: Performed By: #### C BCA, 5643-2, 8-8, CMP, 3040-3, 49605-7, PINR, 95686-7 #### [facility] ([id number]) [address], [address] [place] [address] ABSOLUTE NEUTROPHIL 8.7 X10E9/L High 1.5-6.6 [facility] Comment on above: Performed By: #### C BCA, 5643-2, 8, CMP, 3040-3, 10231-9, PINR, 86833-1 #### [facility] ([id number]) [address], [address] [place] [address] Basophils/100 WBC (Bld) 1.4 % Normal [facility] Comment on above: Performed By: #### C BCA, 5643-2, 1797-12, CMP, 3040-3, 79161-7, PINR, 08294-1 #### [facility] ([id number]) [address], [address] [place] [address] Eosinophils (Bld) [#/Vol] 0.1 10*3/uL Normal 0.0-0.4 [facility] Comment on above: Performed By: #### C BCA, 5643-2, 1797-12, CMP, 3040-3, 84269-4, PINR, 07961-5 #### [facility] ([id number]) [address], [address] [place] [address] Eosinophils/100 WBC (Bld) 0.6 % Normal [facility] Comment on above: Performed By: #### C BCA, 5643-2, 8, CMP, 3040-3, 45138-9, PINR, 81737-4 #### [facility] ([id number]) [address], [address] [place] [address] Erythrocyte distribution width (RBC) [Ratio] 15.6 % High 11.5-15.0 [facility] Comment on above: Performed By: #### C BCA, 5643-2, 1797-8, CMP, 3040-3, 80844-4, PINR, 58981-2 #### [facility] ([id number]) [address], [address] [place] [address] Hematocrit (Bld) [Volume fraction] 30.3 % Low 39-49 [facility] Comment on above: Performed By: #### C BCA, 5643-2, 1797-8, CMP, 3040-3, 05948-2, PINR, 67734-3 #### [facility] ([id number]) [address], [address] [place] [address] Hemoglobin (Bld) [Mass/Vol] 10.4 g/dL Low 13.0-17.0 [facility] Comment on above: Performed By: #### C BCA, 5643-2, 1797-12, CMP, 3040-3, 10523-3, PINR, 76010-3 #### [facility] ([id number]) [address], [address] [place] [address] Lymphocytes (Bld) [#/Vol] 0.6 10*3/uL Low 1.0-3.5 [facility] Comment on above: Performed By: #### C BCA, 5643-2, 1797-12, CMP, 3040-3, 59784-1, PINR, 72439-8 #### [facility] ([id number]) [address], [address] [place] [address] Lymphocytes/100 WBC (Bld) 5.6 % Normal [facility] Comment on above: Performed By: #### C BCA, 5643-2, 8, CMP, 3040-3, 76945-7, PINR, 80208-0 #### [facility] ([id number]) [address], [address] [place] [address] MCH (RBC) [Entitic mass] 31.5 pg Normal 27-34 [facility] Comment on above: Performed By: #### C BCA, 5643-2, 1797-8, CMP, 3040-3, 33837-7, PINR, 91105-6 #### [facility] ([id number]) [address], [address] [place] [address] MCHC (RBC) [Mass/Vol] 34.3 g/dL Normal 32-36 [facility] Comment on above: Performed By: #### C BCA, 5643-2, 1797-8, CMP, 3040-3, 58167-1, PINR, 96361-9 #### [facility] ([id number]) [address], [address] [place] [address] MCV (RBC) [Entitic vol] 92 fL Normal 80-100 P [facility] Comment on above: Performed By: #### C BCA, 5643-2, 1797-8, CMP, 3040-3, 18370-0, PINR, 27465-3 #### [facility] ([id number]) [address], [address] [place] [address] Monocytes (Bld) [#/Vol] 0.6 10*3/uL Normal 0-0.9 [facility] Comment on above: Performed By: #### C BCA, 5643-2, 1797-8, CMP, 3040-3, 81329-8, PINR, 00142-5 #### [facility] ([id number]) [address], [address] [place] [address] Monocytes/100 WBC (Bld) 6.4 % Normal P [facility] Comment on above: Performed By: #### C BCA, 5643-2, 1797-8, CMP, 3040-3, 25299-1, PINR, 54781-0 #### [facility] ([id number]) [address], [address] [place] [address] Neutrophils/100 WBC (Bld) 86.0 % Normal [facility] Comment on above: Performed By: #### C BCA, 5643-2, 8-8, CMP, 3040-3, 70834-6, PINR, 34694-0 #### [facility] ([id number]) [address] [address] Platelet mean volume (Bld) [Entitic vol] 8.8 fL Normal 7-12 [facility] Comment on above: Performed By: #### C BCA, 5643-2, 1797-8, CMP, 3040-3, 14588-6, PINR, 04089-3 #### [facility] ([id number]) [address] [address] Platelets (Bld) [#/Vol] 197 10*3/uL Normal 150-450 [facility] Comment on above: Performed By: #### Kacey BCA, 5643-2, 1797-8, CMP, 3040-3, 64187-1, PINR, 03096-1 #### [facility] ([id number]) [address] [address] RBC COUNT 3.30 X10E12/L Low 4.10-5.70 [facility] Comment on above: Performed By: #### C BCA, 5643-2, 1797-8, CMP, 3040-3, 26845-8, PINR, 84245-9 #### [facility] ([id number]) [address] [address] WBC (Bld) [#/Vol] 10.1 10*3/uL Normal 4.0-11.0 [facility] Comment on above: Performed By: #### C BCA, 5643-2, 1797-8, CMP, 3040-3, 83516-0, PINR, 42222-6 #### [facility] ([id number]) [address] [address] CBC auto differentialon 06-15 Basophils (Bld) [#/Vol] 0.1 10*3/uL [facility] Basophils/100 WBC (Bld) 1.4 % P [facility] Eosinophils (Bld) [#/Vol] 0.1 10*3/uL [facility] Eosinophils/100 WBC (Bld) 0.6 % [facility] Erythrocyte distribution width (RBC) [Ratio] 15.6 % High 11.5 - 15.0 % [facility] Hematocrit (Bld) [Volume fraction] 30.3 % Low 39 - 49 % [facility] Hemoglobin (Bld) [Mass/Vol] 10.4 g/dL Low 13.0 - 17.0 g/dL [facility] Interpretation and review of laboratory results Abnormal [facility] Lymphocytes (Bld) [#/Vol] 0.6 10*3/uL Low [facility] Lymphocytes/100 WBC (Bld) 5.6 % [facility] MCH (RBC) [Entitic mass] 31.5 pg 27 - 34 pg [facility] MCHC (RBC) [Mass/Vol] 34.3 g/dL 32 - 3 6 g/dL [facility] MCV (RBC) [Entitic vol] 92 fL 80 - 100 fL [facility] Monocytes (Bld) [#/Vol] 0.6 10*3/uL [facility] Monocytes/100 WBC (Bld) 6.4 % P [facility] Neutrophils (Bld) [#/Vol] 8.7 10*3/uL High [facility] Neutrophils/100 WBC (Bld) 86 % [facility] Platelet mean volume (Bld) [Entitic vol] 8.8 fL 7 - 12 fL [facility] Platelets (Bld) [#/Vol] 197 10*3/uL [facility] RBC (Bld) [#/Vol] 3.3 10*6/uL Low [facility] WBC corrected for nucl RBC Auto (Bld) [#/Vol] 10.1 [facility] Calcium.ionized (Bld) [Mass/ Vol]on 06-30-2024 [facility] IONIZED CALCIUM 4.7 mg/dL Normal 4.5-5.3 [facility] Comment on above: Performed By: #### C HERNANDEZ, 5643-2, 1798-8, CMP, 3040-3, 42381-3, PINR, 10143-1 #### [facility] ([id number]) [address], [address] [place] [address] Crossmatch RBC:Number of Uni ts: 1on 06-30-2024 BB Type Barcode 6200 [facility] Blood component type [id number] [facility] Crossmatch Compatible [facility] Expiration Date [id number] [facility] Status of unit TRANSFUSED [facility] Unit ABO A [facility] Unit number [id number] [facility] RH Positive [facility] Glucose Glucometer (BldC) [M ass/Vol]on 06-30-2024 Glucose [Mass/Vol] 88 mg/dL 65 - 99 mg/dL [facility] Glucose [Mass/Vol] 88 mg/dL Normal 65-99 [facility] Glucose [Mass/Vol] 78 mg/dL 65 - 99 mg/dL [facility] Glucose [Mass/Vol] 78 mg/dL Normal 65-99 [facility] Glucose [Mass/Vol] 67 mg/dL 65 - 99 mg/dL [facility] Glucose [Mass/Vol] 67 mg/dL Normal 65-99 [facility] Glucose [Mass/Vol] 90 mg/dL Normal 65-99 [facility] Glucose [Mass/Vol] 71 mg/dL 65 - 99 mg/dL [facility] Glucose [Mass/Vol] 71 mg/dL Normal 65-99 [facility] HGBon 06-30-2024 Hematocrit (Bld) [Volume fraction] 29.7 % Low 39-49 [facility] Comment on above: Performed By: #### C HERNANDEZ, 5643-2, 1798-8, CMP, 3040-3, 49790-2, PINR, 97261-6 #### [facility] ([id number]) [address] [place] [address] Hemoglobin (Bld) [Mass/Vol] 10.1 g/dL Low 13.0-17.0 [facility] Comment on above: Performed By: #### C BCA, 5643-2, 8, CMP, 3040-3, 59531-7, PINR, 21448-7 #### [facility] ([id number]) [address], [address] [place] [address] Hematocrit (Bld) [Volume fraction] 29.1 % Low 39-49 [facility] Comment on above: Performed By: #### C BCA, 5643-2, 8, CMP, 3040-3, 63770-4, PINR, 08703-9 #### [facility] ([id number]) [address], [address] [place] [address] Hemoglobin (Bld) [Mass/Vol] 10.0 g/dL Low 13.0-17.0 [facility] Comment on above: Performed By: #### C BCA, 5643-2, 1797-12, CMP, 3040-3, 08240-8, PINR, 68090-5 #### [facility] ([id number]) [address] [place] [address] Hematocrit (Bld) [Volume fraction] 29.9 % Low 39-49 [facility] Comment on above: Performed By: #### C BCA, 5643-2, 8, CMP, 3040-3, 34839-8, PINR, 03715-1 #### [facility] ([id number]) [address] [place] [address] Hemoglobin (Bld) [Mass/Vol] 10.1 g/dL Low 13.0-17.0 [facility] Comment on above: Performed By: #### C BCA, 5643-2, 1798-8, CMP, 3040-3, 75751-5, PINR, 96276-1 #### [facility] ([id number]) [address] [place] [address] Hemoglobin and hematocrit, b loodon 06-30-2024 Hematocrit (Bld) [Volume fraction] 29.7 % Low 39 - 49 % [facility] Hemoglobin (Bld) [Mass/Vol] 10.1 g/dL Low 13.0 - 17.0 g/dL [facility] Interpretation and review of laboratory results Abnormal [facility] Hematocrit (Bld) [Volume fraction] 29.1 % Low 39 - 49 % [facility] Hemoglobin (Bld) [Mass/Vol] 10 g/dL Low 13.0 - 17.0 g/dL [facility] Interpretation and review of laboratory results Abnormal [facility] Hematocrit (Bld) [Volume fraction] 29.9 % Low 39 - 49 % [facility] Hemoglobin (Bld) [Mass/Vol] 10.1 g/dL Low 13.0 - 17.0 g/dL [facility] Interpretation and review of laboratory results Abnormal [facility] Ionized calciumon 06-30-2024 Calcium.ionized (Bld) [Mass/Vol] 4.7 mg/dL 4.5 - 5.3 mg/dL [facility] Ionized magnesiumon 06-30-19 Magnesium Ionized ISE (Bld) [Moles/Vol] 0.53 mmol/L 0.45 - 0.74 mmol/L [facility] Comment on above: NEW REFERENCE RANGE Magnesium Ionized ISE (Bld) [Moles/Vol]on 06-30-2024 [facility] Magnesium [Moles/Vol] 0.53 mmol/L Normal 0.45-0.74 [facility] Comment on above: Result Comment: NEW REFERENCE RANGE Performed By: #### C BCA, 5643-2, 1798-8, CMP, 3040-3, 55516-6, PINR, 08209-4 #### [facility] ([id number]) [address], [address] [place] [address] No Panel Informationon 06-30 [facility] PHOSPHORUSon 06-30-2024 Phosphate [Mass/Vol] 3.5 mg/dL Normal 2.4-4.9 [facility] Comment on above: Performed By: #### C BCA, 5643-2, 1798-8, CMP, 3040-3, 42071-6, PINR, 66426-6 #### [facility] ([id number]) [address], [address] [place] [address] Phosphoruson 06-30-2024 Phosphate [Mass/Vol] 3.5 mg/dL 2.4 - 4 .9 mg/dL [facility] XR CHEST 1 VWon 06-30-2024 XR CHEST [...] Shell MD on 06/30/2024 8:17 PM Normal [facility] XR Chest Single viewon 06-30 CLINICAL [...] Frieda Shell MD on 06/30/2024 8:17 PM Frieda Cruz MD - 06/30/2024 CLINICAL INFORMATION: Clinical concern [...] Frieda Shell MD on 06/30/2024 8:17 PM [facility] Radiology Study observation (narrative) [facility] XR Chest Single viewOrdered By: Frieda Shell on 06-30-2024 [facility] Work Phone: ABO Rh Repeaton 06-29-2024 ABO A [facility] Rh Nom (Bld) Positive [facility] ABO A [facility] Rh Nom (Bld) Positive [facility]icians [facility] AMYLASEon 06-29-2024 Amylase [Catalytic activity/Vol] 14 U/L Low 28-100 [facility] Comment on above: Performed By: #### C BCA, 5643-2, 1798-8, CMP, 3040-3, 55909-7, PINR, [id number] #### [facility] ([id number]) [address], [address] [place] [address] APTTon 06-29-2024 aPTT Coag (PPP) [Time] 33 s Pr [facility] Amylaseon 06-29-2024 Amylase [Catalytic activity/Vol] 14 U/L Low 28 - 100 U/L [facility] BASIC METABOLIC PANLon 06-29 Anion gap [Moles/Vol] 8 mmol/L Normal 5-15 [facility] Comment on above: Performed By: #### I 8XCA #### [facility] ([id number]) [address] [place] [address] Calcium [Mass/Vol] 7.6 mg/dL Low 8.5-10.5 [facility] Comment on above: Performed By: #### I 8XCA #### [facility] ([id number]) [address] [place] [address] Chloride [Moles/Vol] 108 mmol/L Normal 98-109 [facility] Comment on above: Performed By: #### I 8XCA #### [facility] ([id number]) [address] [place] [address] CO2 [Moles/Vol] 23 mmol/L Normal 22-32 [facility] Comment on above: Performed By: #### I 8XCA #### [facility] ([id number]) [address] [place] [address] Creatinine [Mass/Vol] 1.57 mg/dL High 0.60-1.30 [facility] Comment on above: Result Comment: METH OD TRACEABLE TO IDMS STANDARD Performed By: #### I 8XCA #### [facility] ([id number]) [address] [place] [address] GFR/1.73 sq M.predicted among non-blacks MDRD (S/P/Bld) [Vol rate/Area] 45 mL/min/{1.73_m2} Low >59 Pr [facility] Comment on above: Result Comment: Reported eGFR is based on the CKD-EPI 2020 equation that does not use a race coefficient. Performed By: #### I 8XCA #### [facility] ([id number]) [address] [place] [address] Glucose [Mass/Vol] 111 mg/dL High 65-99 [facility] Comment on above: Performed By: #### I 8XCA #### [facility] ([id number]) [address] [place] [address] Potassium [Moles/Vol] 3.7 mmol/L Normal 3.5-5.0 [facility] Comment on above: Performed By: #### I 8XCA #### [facility] ([id number]) [address] [place] [address] Sodium [Moles/Vol] 139 mmol/L Normal 134-146 [facility] Comment on above: Performed By: #### I 8XCA #### [facility] ([id number]) [address] [place] [address] Urea nitrogen [Mass/Vol] 17 mg/dL Normal 5-27 [facility] Comment on above: Performed By: #### I 8XCA #### [facility] ([id number]) [address] [place] [address] Basic Metabolic Panelon 06-15 Anion gap [Moles/Vol] 8 mmol/L 5 - 15 mmol/L [facility] Calcium [Mass/Vol] 7.6 mg/dL Low 8.5 - 10. 5 mg/dL [facility] Chloride [Moles/Vol] 108 mmol/L 98 - 10 9 mmol/L [facility] CO2 [Moles/Vol] 23 mmol/L 22 - 32 mmol/L [facility] Creatinine [Mass/Vol] 1.57 mg/dL High 0.60 - 1.30 mg/dL [facility] Comment on above: METHOD TRACEABLE TO IDNY STANDARD eGFR (CKD-EPI)non-race dependent 45 Low - PINF [facility] Comment on above: Reported eGFR is based on the CKD-EPI 2020 equation that does not use a race coefficient. Glucose [Mass/Vol] 111 mg/dL High 65 - 99 mg/dL [facility] Interpretation and review of laboratory results Abnormal [facility] Potassium [Moles/Vol] 3.7 mmol/L 3.5 - 5.0 mmol/L [facility] Sodium [Moles/Vol] 139 mmol/L 134 - 146 mmol/L [facility] Urea nitrogen [Mass/Vol] 17 mg/dL 5 - 27 mg/dL [facility] CBC AND AUTO DIFFon 06-29-19 ABSOLUTE BASOPHIL 0.1 X10E9/L Normal 0.0-0.2 [facility] Comment on above: Performed By: #### I 8XCA #### [facility] ([id number]) [address] [place] [address] ABSOLUTE NEUTROPHIL 10.1 X10E9/L High 1.5-6.6 [facility] Comment on above: Performed By: #### I 8XCA #### [facility] ([id number]) [address] [place] [address] Basophils/100 WBC (Bld) 0.4 % Normal P [facility] Comment on above: Performed By: #### I 8XCA #### [facility] ([id number]) [address] [place] [address] Eosinophils (Bld) [#/Vol] 0.0 10*3/uL Normal 0.0-0.4 [facility] Comment on above: Performed By: #### I 8XCA #### [facility] ([id number]) [address] [place] [address] Eosinophils/100 WBC (Bld) 0.1 % Normal [facility] Comment on above: Performed By: #### I 8XCA #### [facility] ([id number]) [address] [place] [address] Erythrocyte distribution width (RBC) [Ratio] 14.7 % Normal 11.5-15.0 [facility] Comment on above: Performed By: #### I 8XCA #### [facility] ([id number]) [address] [place] [address] Hematocrit (Bld) [Volume fraction] 23.6 % Low 39-49 [facility] Comment on above: Performed By: #### I 8XCA #### [facility] ([id number]) [address] [place] [address] Hemoglobin (Bld) [Mass/Vol] 8.1 g/dL Low 13.0-17.0 [facility] Comment on above: Performed By: #### I 8XCA #### [facility] ([id number]) [address] [place] [address] Lymphocytes (Bld) [#/Vol] 0.6 10*3/uL Low 1.0-3.5 [facility] Comment on above: Performed By: #### I 8XCA #### [facility] ([id number]) [address] [place] [address] Lymphocytes/100 WBC (Bld) 4.8 % Normal [facility] Comment on above: Performed By: #### I 8XCA #### [facility] ([id number]) [address] [place] [address] MCH (RBC) [Entitic mass] 31.7 pg Normal 27-34 [facility] Comment on above: Performed By: #### I 8XCA #### [facility] ([id number]) [address] [place] [address] MCHC (RBC) [Mass/Vol] 34.1 g/dL Normal 32-36 [facility] Comment on above: Performed By: #### I 8XCA #### [facility] ([id number]) [address] [place] [address] MCV (RBC) [Entitic vol] 93 fL Normal 80-100 P [facility] Comment on above: Performed By: #### I 8XCA #### [facility] ([id number]) [address] [place] [address] Monocytes (Bld) [#/Vol] 1.0 10*3/uL High 0-0.9 [facility] Comment on above: Performed By: #### I 8XCA #### [facility] ([id number]) [address] [place] [address] Monocytes/100 WBC (Bld) 8.2 % Normal [facility] Comment on above: Performed By: #### I 8XCA #### [facility] ([id number]) [address] [place] [address] Neutrophils/100 WBC (Bld) 86.5 % Normal [facility] Comment on above: Performed By: #### I 8XCA #### [facility] ([id number]) [address] [place] [address] Platelet mean volume (Bld) [Entitic vol] 9.0 fL Normal 7-12 [facility] Comment on above: Performed By: #### I 8XCA #### [facility] ([id number]) [address] [place] [address] Platelets (Bld) [#/Vol] 193 10*3/uL Normal 150-450 [facility] Comment on above: Performed By: #### I 8XCA #### [facility] ([id number]) [address] [place] [address] RBC COUNT 2.54 X10E12/L Low 4.10-5.70 [facility] Comment on above: Performed By: #### I 8XCA #### [facility] ([id number]) [address] [place] [address] WBC (Bld) [#/Vol] 11.7 10*3/uL High 4.0-11.0 [facility] Comment on above: Performed By: #### I 8XCA #### [facility] ([id number]) [address] [place] [address] ABSOLUTE BASOPHIL 0.0 X10E9/L Normal 0.0-0.2 [facility] Comment on above: Performed By: #### C BCA, 5643-2, 1798-8, CMP, 3040-3, 96559-8, PINR, 48190-9 #### [facility] ([id number]) [address], [address] [place] [address] ABSOLUTE NEUTROPHIL 9.1 X10E9/L High 1.5-6.6 [facility] Comment on above: Performed By: #### C BCA, 5643-2, 1797-8, CMP, 3040-3, 35170-6, PINR, 10785-7 #### [facility] ([id number]) [address], [address] [place] [address] Basophils/100 WBC (Bld) 0.1 % Normal P [facility] Comment on above: Performed By: #### C BCA, 5643-2, 1797-8, CMP, 3040-3, 11199-6, PINR, 55042-5 #### [facility] ([id number]) [address], [address] [place] [address] Eosinophils (Bld) [#/Vol] 0.0 10*3/uL Normal 0.0-0.4 [facility] Comment on above: Performed By: #### C BCA, 5643-2, 1797-8, CMP, 3040-3, 66184-3, PINR, 18449-3 #### [facility] ([id number]) [address], [address] [place] [address] Eosinophils/100 WBC (Bld) 0.0 % Normal [facility] Comment on above: Performed By: #### C BCA, 5643-2, 1797-8, CMP, 3040-3, 56723-3, PINR, 95094-8 #### [facility] ([id number]) [address], [address] [place] [address] Erythrocyte distribution width (RBC) [Ratio] 14.5 % Normal 11.5-15.0 [facility] Comment on above: Performed By: #### C BCA, 5643-2, 1797-8, CMP, 3040-3, 62955-3, PINR, 20523-3 #### [facility] ([id number]) [address], [address] [place] [address] Hematocrit (Bld) [Volume fraction] 20.6 % Low 39-49 [facility] Comment on above: Performed By: #### C BCA, 5643-2, 1797-8, CMP, 3040-3, 21326-3, PINR, 93988-7 #### [facility] ([id number]) [address], [address] [place] [address] Hemoglobin (Bld) [Mass/Vol] 6.9 g/dL Critically low 13.0-17.0 [facility] Comment on above: Performed By: #### C BCA, 5643-2, 1797-8, CMP, 3040-3, 95957-0, PINR, 08022-7 #### [facility] ([id number]) [address] [place] [address] Lymphocytes (Bld) [#/Vol] 0.6 10*3/uL Low 1.0-3.5 [facility] Comment on above: Performed By: #### C BCA, 5643-2, 1797-8, CMP, 3040-3, 18457-2, PINR, 12741-9 #### [facility] ([id number]) [address], [address] [place] [address] Lymphocytes/100 WBC (Bld) 5.3 % Normal [facility] Comment on above: Performed By: #### C BCA, 5643-2, 1797-8, CMP, 3040-3, 03113-3, PINR, 37857-2 #### [facility] ([id number]) [address], [address] [place] [address] MCH (RBC) [Entitic mass] 31.4 pg Normal 27-34 [facility] Comment on above: Performed By: #### C BCA, 5643-2, 1797-8, CMP, 3040-3, 68668-7, PINR, 55015-9 #### [facility] ([id number]) [address], [address] [place] [address] MCHC (RBC) [Mass/Vol] 33.4 g/dL Normal 32-36 [facility] Comment on above: Performed By: #### C BCA, 5643-2, 8-8, CMP, 3040-3, 81107-6, PINR, 09192-8 #### [facility] ([id number]) [address], [address] [place] [address] MCV (RBC) [Entitic vol] 94 fL Normal 80-100 P [facility] Comment on above: Performed By: #### C BCA, 5643-2, 1797-8, CMP, 3040-3, 49486-6, PINR, 89152-3 #### [facility] ([id number]) [address] [place] [address] Monocytes (Bld) [#/Vol] 0.9 10*3/uL Normal 0-0.9 [facility] Comment on above: Performed By: #### C BCA, 5643-2, 1797-8, CMP, 3040-3, 84203-8, PINR, 29648-3 #### [facility] ([id number]) [address] [place] [address] Monocytes/100 WBC (Bld) 8.6 % Normal [facility] Comment on above: Performed By: #### C BCA, 5643-2, 1797-8, CMP, 3040-3, 68720-2, PINR, 16444-9 #### [facility] ([id number]) [address], [address] [place] [address] Neutrophils/100 WBC (Bld) 86.0 % Normal [facility] Comment on above: Performed By: #### C BCA, 5643-2, 1797-8, CMP, 3040-3, 88253-0, PINR, 83714-9 #### [facility] ([id number]) [address], [address] [address] Platelet mean volume (Bld) [Entitic vol] 9.3 fL Normal 7-12 [facility] Comment on above: Performed By: #### C BCA, 5643-2, 1797-8, CMP, 3040-3, 51551-9, PINR, 57504-9 #### [facility] ([id number]) [address] [address] Platelets (Bld) [#/Vol] 186 10*3/uL Normal 150-450 [facility] Comment on above: Performed By: #### C BCA, 5643-2, 1797-8, CMP, 3040-3, 85021-2, PINR, 52766-9 #### [facility] ([id number]) [address] [address] RBC COUNT 2.19 X10E12/L Low 4.10-5.70 [facility] Comment on above: Performed By: #### C BCA, 5643-2, 8, CMP, 3040-3, 52005-8, PINR, 02927-4 #### [facility] ([id number]) [address] [address] WBC (Bld) [#/Vol] 10.6 10*3/uL Normal 4.0-11.0 [facility] Comment on above: Performed By: #### Kacey BCA, 5643-2, 8, CMP, 3040-3, 70448-3, PINR, 38150-0 #### [facility] ([id number]) [address] [address] CBC auto differentialon 06-15 Basophils (Bld) [#/Vol] 0.1 10*3/uL [facility] Basophils/100 WBC (Bld) 0.4 % P [facility] Eosinophils (Bld) [#/Vol] 0 10*3/uL [facility] Eosinophils/100 WBC (Bld) 0.1 % [facility] Erythrocyte distribution width (RBC) [Ratio] 14.7 % 11.5 - 15.0 % [facility] Hematocrit (Bld) [Volume fraction] 23.6 % Low 39 - 49 % [facility] Hemoglobin (Bld) [Mass/Vol] 8.1 g/dL Low 13.0 - 17.0 g/dL [facility] Interpretation and review of laboratory results Abnormal [facility] Lymphocytes (Bld) [#/Vol] 0.6 10*3/uL Low [facility] Lymphocytes/100 WBC (Bld) 4.8 % [facility] MCH (RBC) [Entitic mass] 31.7 pg 27 - 34 pg [facility] MCHC (RBC) [Mass/Vol] 34.1 g/dL 32 - 3 6 g/dL [facility] MCV (RBC) [Entitic vol] 93 fL 80 - 100 fL [facility] Monocytes (Bld) [#/Vol] 1 10*3/uL High [facility] Monocytes/100 WBC (Bld) 8.2 % [facility] Neutrophils (Bld) [#/Vol] 10.1 10*3/uL High [facility] Neutrophils/100 WBC (Bld) 86.5 % [facility] Platelet mean volume (Bld) [Entitic vol] 9 fL 7 - 12 fL [facility] Platelets (Bld) [#/Vol] 193 10*3/uL [facility] RBC (Bld) [#/Vol] 2.54 10*6/uL [facility] WBC corrected for nucl RBC Auto (Bld) [#/Vol] 11.7 High [facility] Basophils (Bld) [#/Vol] 0 10*3/uL [facility] Basophils/100 WBC (Bld) 0.1 % [facility] Eosinophils (Bld) [#/Vol] 0 10*3/uL [facility] Eosinophils/100 WBC (Bld) 0 % [facility] Erythrocyte distribution width (RBC) [Ratio] 14.5 % 11.5 - 15.0 % [facility] Hematocrit (Bld) [Volume fraction] 20.6 % Low 39 - 49 % [facility] Hemoglobin (Bld) [Mass/Vol] 6.9 g/dL Critically low 13.0 - 17.0 g/dL [facility] Interpretation and review of laboratory results Abnormal [facility] Lymphocytes (Bld) [#/Vol] 0.6 10*3/uL Low [facility] Lymphocytes/100 WBC (Bld) 5.3 % [facility] MCH (RBC) [Entitic mass] 31.4 pg 27 - 34 pg [facility] MCHC (RBC) [Mass/Vol] 33.4 g/dL 32 - 3 6 g/dL [facility] MCV (RBC) [Entitic vol] 94 fL 80 - 100 fL [facility] Monocytes (Bld) [#/Vol] 0.9 10*3/uL [facility] Monocytes/100 WBC (Bld) 8.6 % [facility] Neutrophils (Bld) [#/Vol] 9.1 10*3/uL High [facility] Neutrophils/100 WBC (Bld) 86 % [facility] Platelet mean volume (Bld) [Entitic vol] 9.3 fL 7 - 12 fL [facility] Platelets (Bld) [#/Vol] 186 10*3/uL [facility] RBC (Bld) [#/Vol] 2.19 10*6/uL Low [facility] WBC corrected for nucl RBC Auto (Bld) [#/Vol] 10.6 [facility] COMPREHENSIVE METABOLIC PANE Larry 06-29-2024 Albumin [Mass/Vol] 2.4 g/dL Low 3.2-5.3 [facility] Comment on above: Performed By: #### C BCA, 5643-2, 1798-8, CMP, 3040-3, 17232-2, PINR, 45795-3 #### [facility] ([id number]) [address], [address] [place] [address] ALP [Catalytic activity/Vol] 63 U/L Normal 39-130 [facility] Comment on above: Performed By: #### C BCA, 5643-2, 1797-8, CMP, 3040-3, 38228-9, PINR, 77343-4 #### [facility] ([id number]) [address], [address] [place] [address] ALT [Catalytic activity/Vol] 9 U/L Normal 0-40 [facility] Comment on above: Performed By: #### C BCA, 5643-2, 1797-8, CMP, 3040-3, 25979-9, PINR, 56754-5 #### [facility] ([id number]) [address], [address] [place] [address] Anion gap [Moles/Vol] 8 mmol/L Normal 5-15 [facility] Comment on above: Performed By: #### C BCA, 5643-2, 1797-8, CMP, 3040-3, 76159-6, PINR, 33871-5 #### [facility] ([id number]) [address], [address] [place] [address] AST [Catalytic activity/Vol] 15 U/L Normal 0-41 [facility] Comment on above: Performed By: #### C BCA, 5643-2, 1797-8, CMP, 3040-3, 88744-9, PINR, 14505-1 #### [facility] ([id number]) [address], [address] [place] [address] Bilirubin [Mass/Vol] 0.8 mg/dL Normal 0.3-1.2 [facility] Comment on above: Performed By: #### C BCA, 5643-2, 1797-8, CMP, 3040-3, 00471-6, PINR, 51759-4 #### [facility] ([id number]) [address], [address] [place] [address] Calcium [Mass/Vol] 6.9 mg/dL Critically low 8.5-10.5 [facility] Comment on above: Performed By: #### C BCA, 5643-2, 1797-8, CMP, 3040-3, 67769-7, PINR, 88634-6 #### [facility] ([id number]) [address], [address] [place] [address] Chloride [Moles/Vol] 111 mmol/L High 98-109 [facility] Comment on above: Performed By: #### C BCA, 5643-2, 1797-8, CMP, 3040-3, 81360-8, PINR, 08171-7 #### [facility] ([id number]) [address], [address] [place] [address] CO2 [Moles/Vol] 21 mmol/L Low 22-32 [facility] Comment on above: Performed By: #### C BCA, 5643-2, 1797-8, CMP, 3040-3, 64830-6, PINR, 76037-3 #### [facility] ([id number]) [address], [address] [place] [address] Creatinine [Mass/Vol] 1.46 mg/dL High 0.60-1.30 [facility] Comment on above: Result Comment: METH OD TRACEABLE TO IDMS STANDARD Performed By: #### C BCA, 5643-2, 8, CMP, 3040-3, 61395-3, PINR, 87468-4 #### [facility] ([id number]) [address], [address] [place] [address] GFR/1.73 sq M.predicted among non-blacks MDRD (S/P/Bld) [Vol rate/Area] 49 mL/min/{1.73_m2} Low >59 Pr [facility] Comment on above: Result Comment: Reported eGFR is based on the CKD-EPI 2020 equation that does not use a race coefficient. Performed By: #### C BCA, 5643-2, 1797-8, CMP, 3040-3, 67683-3, PINR, 14565-2 #### [facility] ([id number]) [address], [address] [place] [address] Glucose [Mass/Vol] 105 mg/dL High 65-99 [facility] Comment on above: Performed By: #### C BCA, 5643-2, 1797-8, CMP, 3040-3, 71772-0, PINR, 14996-0 #### [facility] ([id number]) [address], [address] [place] [address] Potassium [Moles/Vol] 3.6 mmol/L Normal 3.5-5.0 [facility] Comment on above: Performed By: #### C BCA, 5643-2, 8, CMP, 3040-3, 64337-2, PINR, 42799-6 #### [facility] ([id number]) [address], [address] [place] [address] Protein [Mass/Vol] 4.5 g/dL Low 6.0-8.0 [facility] Comment on above: Performed By: #### C BCA, 5643-2, 8, CMP, 3040-3, 08264-3, PINR, 57658-0 #### [facility] ([id number]) [address], [address] [place] [address] Sodium [Moles/Vol] 140 mmol/L Normal 134-146 [facility] Comment on above: Performed By: #### C BCA, 5643-2, 1797-8, CMP, 3040-3, 98923-8, PINR, 56673-9 #### [facility] ([id number]) [address], [address] [place] [address] Urea nitrogen [Mass/Vol] 16 mg/dL Normal 5-27 [facility] Comment on above: Performed By: #### C BCA, 5643-2, 1797-8, CMP, 3040-3, 30020-9, PINR, 60502-2 #### [facility] ([id number]) [address] [place] [address] Calcium.ionized (Bld) [Mass/ Vol]on 06-29-2024 IONIZED CALCIUM 4.5 mg/dL Normal 4.5-5.3 [facility] Comment on above: Performed By: #### I 8XCA #### [facility] ([id number]) [address] [place] [address] Comprehensive metabolic pane larry 06-29-2024 Albumin [Mass/Vol] 2.4 g/dL Low 3.2 - 5.3 g/dL [facility] ALP [Catalytic activity/Vol] 63 U/L 39 - 130 U/L [facility] ALT No additional P-5'-P [Catalytic activity/Vol] 9 U/L 0 - 40 U/L [facility] Anion gap [Moles/Vol] 8 mmol/L 5 - 15 mmol/L [facility] AST [Catalytic activity/Vol] 15 U/L 0 - 41 U/L [facility] Bilirubin [Mass/Vol] 0.8 mg/dL 0.3 - 1 .2 mg/dL [facility] Calcium [Mass/Vol] 6.9 mg/dL Critically low 8.5 - 1 0.5 mg/dL [facility] Chloride [Moles/Vol] 111 mmol/L High 98 - 10 9 mmol/L [facility] CO2 [Moles/Vol] 21 mmol/L Low 22 - 32 mmol/L [facility] Creatinine [Mass/Vol] 1.46 mg/dL High 0.60 - 1.30 mg/dL [facility] Comment on above: METHOD TRACEABLE TO IDNY STANDARD eGFR (CKD-EPI)non-race dependent 49 Low - PINF [facility] Comment on above: Reported eGFR is based on the CKD-EPI 2020 equation that does not use a race coefficient. Glucose [Mass/Vol] 105 mg/dL High 65 - 99 mg/dL [facility] Interpretation and review of laboratory results Abnormal [facility] Potassium [Moles/Vol] 3.6 mmol/L 3.5 - 5.0 mmol/L [facility] Protein [Mass/Vol] 4.5 g/dL Low 6.0 - 8.0 g/dL [facility] Sodium [Moles/Vol] 140 mmol/L 134 - 146 mmol/L [facility] Urea nitrogen [Mass/Vol] 16 mg/dL 5 - 27 mg/dL [facility] Crossmatch RBC:on 06-29-2024 BB Type Barcode 6200 [facility] Blood component type [id number] [facility]piration Date [facility] A [facility] Unit number [id number] [facility] Unit RH Positive [facility] BB Type [facility]arcode 6200 [facility] Blood component type [id number] [facility] Expiration Date [facility] [facility] Unit number [id number] [facility] Unit RH Positive [facility] BB Type Barcode 6200 [facility] Blood component type [id number] [facility] Crossmatch Compatible [facility] Expiration Date [facility] Status of unit SELECTED [facility] Unit ABO A [facility] Unit number [id number] [facility] Unit RH Positive [facility] Expiration Date [id number] [facility] Unit number [id number] [facility] Unit number [id number] [facility] Unit number [id number] [facility] BB Type Barcode 5100 [facility] Blood component type [id number] [facility] Expiration Date [id number] [facility] Status of unit ISSUED [facility] Unit [facility] number [id number] [facility] Unit RH Positive [facility] Unit number [id number] [facility] Unit number [id number] [facility] BB Type Barcode 5100 [facility] Blood component type [id number] [facility] Crossmatch Compatible [facility] Expiration Date [id number] [facility] Status of unit SELECTED [facility] Unit ABO O [facility] Unit number [id number] [facility] Unit RH Positive [facility] BB Type Barcode 5100 [facility] Blood component type [id number] [facility] Crossmatch Compatible [facility] Expiration Date [id number] [facility] Status of unit SELECTED [facility] Unit ABO O [facility] Unit number [id number] [facility] Unit RH Positive [facility] BB Type Barcode 5100 [facility] Blood component type [id number] [facility] Crossmatch Compatible [facility] Expiration Date [id number] [facility] Status of unit SELECTED [facility] Unit ABO O [facility] Unit number [id number] [facility] Unit RH Positive [facility] Crossmatch RBC:Number of Uni ts: 1on 06-29-2024 BB Type Barcode 6200 [facility] Blood component type [id number] [facility] Crossmatch Compatible [facility] Expiration Date [id number] [facility] Status of unit TRANSFUSED [facility] Unit ABO A [facility] Unit number [id number] [facility] Unit RH Positive [facility] BB Type Barcode 5100 [facility] Blood component type [id number] [facility] Crossmatch Compatible [facility] Expiration Date [id number] [facility] Status of unit TRANSFUSED [facility] Unit ABO O [facility] Unit number [id number] [facility] Unit RH Positive [facility] DRUG SCREEN, URINEon 025 AMPHETAMINE/METHAMP Negative Normal NEG [facility] Comment on above: Result Comment: AMPH /METH screening cut off = 1000 ng/mL Performed By: #### I 8XCA #### [facility] ([address] [place] [address]) [address] [place] [address] BARBITURATES Negative Normal NEG [facility] Comment on above: Result Comment: Lilia iturates screening cut off value = 200 ng/mL Performed By: #### I 8XCA #### [facility] ([address] [place] [address]) [address] [place] [address] BENZODIAZEPINES Negative Normal NEG [facility] Comment on above: Result Comment: Danish odiazepines screening cut off value = 200 ng/mL Performed By: #### I 8XCA #### [facility] ([address] [place] [address]) [address] [place] [address] CANNABINOIDS Negative Normal NEG [facility] Comment on above: Result Comment: Dora abinoids/THC screening cut off value = 50 ng/mL Performed By: #### I 8XCA #### [facility] ([address] [place] [address]) [address] [place] [address] COCAINE METABOLITE Negative Normal NEG [facility] Comment on above: Result Comment: Coca ine screening cut off value = 300 ng/mL Performed By: #### I 8XCA #### [facility] ([address] [place] [address]) [address] [place] [address] ECSTASY Negative Normal NEG [facility] Comment on above: Result Comment: Ecst asy screening cut off value = 500 ng/mL This report is intended for use in clinical monitoring or management of patients. Performed By: #### I 8XCA #### [facility] ([id number]) [address] [place] [address] METHADONE Negative Normal NEG [facility] Comment on above: Result Comment: Meth adone screening cut off value = 300 ng/mL. Performed By: #### I 8XCA #### [facility] ([id number]) [address] [place] [address] OPIATES Negative Normal NEG [facility] Comment on above: Result Comment: Opia vasiliy screening cut off value = 300 ng/mL NOTE: This test is used for the detection of codeine, hydrocodone (>1000 ng/mL), morphine and hydromorphone (>900 ng/mL) in urine. Performed By: #### I 8XCA #### [facility] ([id number]) [address] [place] [address] OXYCODONE Negative Normal [facility] Comment on above: Result Comment: Oxyc odone screening cut off value = 300 ng/mL NOTE: This test is used for the detection of oxycodone and oxymorphone in urine. Performed By: #### I 8XCA #### [facility] ([id number]) [address] [place] [address] PHENCYCLIDINE Negative Normal [facility] Comment on above: Result Comment: Phen cyclidine screening cut off value = 25 ng/mL Performed By: #### I 8XCA #### [facility] ([id number]) [address] [place] [address] Drug Screen, Urineon 025 Amphetamines Screen method >1000 ng/mL Ql (U) Negative Negative^N [facility] Comment on above: AMPH/METH screening cut off = 1000 ng/mL Barbiturates Screen Ql (U) Negative N egative^N [facility] Comment on above: Barbiturates screeni ng cut off value = 200 ng/mL Benzodiazepines Ql (U) Negative Negat gabriela^N [facility] Comment on above: Benzodiazepines scre ening cut off value = 200 ng/mL Cocaine Ql (U) Negative Negative^N egative [facility] Comment on above: Cocaine screening cu t off value = 300 ng/mL Methadone Screen Ql (U) Negative Nega tive^N [facility] Comment on above: Methadone screening cut off value = 300 ng/mL. Methylenedioxymethamphetam ine Screen Ql (U) Negative Negative^N [facility] Comment on above: Ecstasy screening cu t off value = 500 ng/mL This report is intended for use in clinical monitoring or management of patients. Opiates Screen Ql (U) Negative Negati ve^N [facility] Comment on above: Opiates screening cu t off value = 300 ng/mL NOTE: This test is used for the detection of codeine, hydrocodone (>1000 ng/mL), morphine and hydromorphone (>900 ng/mL) in urine. oxyCODONE Ql (U) Negative Negative^N [facility] Comment on above: Oxycodone screening cut off value = 300 ng/mL NOTE: This test is used for the detection of oxycodone and oxymorphone in urine. Phencyclidine Screen method >25 ng/mL Ql (U) Negative Negative^N [facility] Comment on above: Phencyclidine screen ing cut off value = 25 ng/mL Tetrahydrocannabinol Screen method >50 ng/mL Ql (U) Negative Negative^N [facility] Comment on above: Cannabinoids/THC scr eening cut off value = 50 ng/mL [facility] ETHANOLon 06-29-2024 Ethanol [Mass/Vol] mg/dL Normal 0.00-0.08 [facility] Comment on above: Result Comment: This report is intended for use in clinical monitoring or management of patients. Performed By: #### C BCA, 5643-2, 1798-8, CMP, 3040-3, 14255-2, PINR, [id number] #### [facility] ([id number]) [address] [place] [address], [address] [place] [address] Ethanolon 06-29-2024 Ethanol [Mass/Vol] g/dL 0.00 - 0.08 g/dL [facility] Comment on above: This report is intended for use in clinical monitoring or management of patients. Fibrinogenon 06-29-2024 Fibrinogen Coagulation.derived (PPP) [Mass/Vol] 501 mg/dL High 190 - 480 mg/dL [facility] Fibrinogen Coagulation.deriv ed (PPP) [Mass/Vol]on 06-29-2024 FIBRINOGEN 501 mg/dL High 190-480 [facility] Comment on above: Performed By: #### C HERNANDEZ, 5643-2, 1797-8, CMP, 3040-3, 64932-0, PINR, 08234-7 #### [facility] ([id number]) [address], [address] [place] [address] Glucose Glucometer (BldC) [M ass/Vol]on 06-29-2024 Glucose [Mass/Vol] 75 mg/dL 65 - 99 mg/dL [facility] Glucose [Mass/Vol] 75 mg/dL Normal 65-99 [facility] Glucose [Mass/Vol] 78 mg/dL 65 - 99 mg/dL [facility] Glucose [Mass/Vol] 78 mg/dL Normal 65-99 [facility] Glucose [Mass/Vol] 108 mg/dL High 65 - 99 mg/dL [facility] Interpretation and review of laboratory results Abnormal [facility] Glucose [Mass/Vol] 108 mg/dL High 65-99 [facility] HGBon 06-29-2024 Hematocrit (Bld) [Volume fraction] 26.1 % Low 39-49 [facility] Comment on above: Performed By: #### C HERNANDEZ, 5643-2, 1797-8, CMP, 3040-3, 70188-3, PINR, 06167-5 #### [facility] ([id number]) [address], [address] [place] [address] Hemoglobin (Bld) [Mass/Vol] 8.8 g/dL Low 13.0-17.0 [facility] Comment on above: Performed By: #### Kacey NG, 5643-2, 1797-8, CMP, 3040-3, 52959-0, PINR, 61518-2 #### [facility] ([id number]) [address], [address] [place] [address] Hematocrit (Bld) [Volume fraction] 26.8 % Low 39-49 [facility] Comment on above: Performed By: #### C BCA, 5643-2, 8-8, CMP, 3040-3, 61455-2, PINR, 77877-1 #### [facility] ([id number]) [address], [address] [place] [address] Hemoglobin (Bld) [Mass/Vol] 9.4 g/dL Low 13.0-17.0 [facility] Comment on above: Performed By: #### C BCA, 5643-2, 1797-8, CMP, 3040-3, 50314-0, PINR, 16345-4 #### [facility] ([id number]) [address], [address] [place] [address] Hematocrit (Bld) [Volume fraction] 24.1 % Low 39-49 [facility] Comment on above: Performed By: #### C BCA, 5643-2, 1797-8, CMP, 3040-3, 83260-9, PINR, [id number] #### [facility] ([id number]) [address], [address] [place] [address] Hemoglobin (Bld) [Mass/Vol] 7.9 g/dL Low 13.0-17.0 [facility] Comment on above: Performed By: #### C BCA, 5643-2, 8-8, CMP, 3040-3, 18057-3, PINR, 82141-8 #### [facility] ([id number]) [address], [address] [place] [address] HGB A1C (GLYCO-HGB)on 2024 Glucose [Mass/Vol] 114 mg/dL Normal [facility] Comment on above: Performed By: #### C BCA, 5643-2, 1798-8, [facility], 3040-3, 18543-0, PINR, [id number] #### [facility] ([id number]) [address] [facility], [address] [place] [address] HbA1c (Bld) [Mass fraction] 5.6 % Normal 4.4-5.6 [facility] Comment on above: Result Comment: NOTE ADA Guidelines Result HgbA1c Normal : less than 5.7 % Prediabetes : 5.7 % to 6.4 % Diabetes : > 6.4 % Use with caution in patients with abnormal hemoglobin variants as the half-life of red blood cells and in vivo glycation rates are affected. Performed By: #### C BCA, 5643-2, 1798-8, [facility], 3040-3, 26215-2, PINR, 11181-5 #### [facility] ([id number]) [address] [facility], [address] [place] [address] Hemoglobin A1con 06-29-2024 Average glucose Estimated from glycated hemoglobin (Bld) [Mass/Vol] 114 mg/dL [facility] HbA1c (Bld) [Mass fraction] 5.6 % 4.4 - 5.6 % [facility] Comment on above: NOTE ADA Guidelines Result HgbA1c Normal : less than 5.7 % Prediabetes : 5.7 % to 6.4 % Diabetes : > 6.4 % Use with caution in patients with abnormal hemoglobin variants as the half-life of red blood cells and in vivo glycation rates are affected. [facility] Hemoglobin and hematocrit, b loodon 06-29-2024 Hematocrit (Bld) [Volume fraction] 26.1 % Low 39 - 49 % [facility] Hemoglobin (Bld) [Mass/Vol] 8.8 g/dL Low 13.0 - 17.0 g/dL [facility] Interpretation and review of laboratory results Abnormal [facility] Hematocrit (Bld) [Volume fraction] 26.8 % Low 39 - 49 % [facility] Hemoglobin (Bld) [Mass/Vol] 9.4 g/dL Low 13.0 - 17.0 g/dL [facility] Interpretation and review of laboratory results Abnormal [facility] Hematocrit (Bld) [Volume fraction] 24.1 % Low 39 - 49 % [facility] Hemoglobin (Bld) [Mass/Vol] 7.9 g/dL Low 13.0 - 17.0 g/dL [facility] Interpretation and review of laboratory results Abnormal [facility] Ionized calciumon 06-29-2024 Calcium.ionized (Bld) [Mass/Vol] 4.5 mg/dL 4.5 - 5.3 mg/dL [facility] Ionized magnesiumon 06-29-19 25 Magnesium Ionized ISE (Bld) [Moles/Vol] 0.52 mmol/L 0.45 - 0.74 mmol/L [facility] Comment on above: NEW REFERENCE RANGE LIPASEon 06-29-2024 Lipase [Catalytic activity/Vol] 8 U/L Low 11-82 [facility] Comment on above: Performed By: #### C BCA, 5643-2, 1798-8, CMP, 3040-3, 20919-2, PINR, 03154-0 #### [facility] ([id number]) [address] [facility], [address] [place] [address] Lactate (P rosanne) [Moles/Vol]o n 06-29-2024 [facility] LACTATE W/REFLEX 0.7 mmol/L Normal 0.4-2.0 [facility] Comment on above: Result Comment: Result did not trigger repeat Lactate, re-order if needed. Performed By: #### I 8XCA #### [facility] ([id number]) [address] [place] [address] Lactate w/ Reflexon 06-29-19 25 Lactate (P rosanne) [Moles/Vol] 0.7 mmol/L 0.4 - 2.0 mmol/L [facility] Comment on above: Result did not trigger repeat Lactate, re-order if needed. Lipaseon 06-29-2024 Lipase [Catalytic activity/Vol] 8 U/L Low 11 - 82 U/L [facility] Magnesium Ionized ISE (Bld) [Moles/Vol]on 06-29-2024 Magnesium [Moles/Vol] 0.52 mmol/L Normal 0.45-0.74 [facility] Comment on above: Result Comment: NEW REFERENCE RANGE Performed By: #### I 8XCA #### [facility] ([id number]) [address] [place] [address] Natriuretic peptide B [Mass/ Vol]on 06-29-2024 Interpretation and review of laboratory results Abnormal [facility] Natriuretic peptide B (Bld) [Mass/Vol] 224 pg/mL High NINF - 100.0 pg/mL [facility] Natriuretic peptide B (Bld) [Mass/Vol] 224 pg/mL High <100.0 [facility] Comment on above: Performed By: #### I 8XCA #### [facility] ([id number]) [address] [place] [address] No Panel Informationon 06-29 [facility] BB Type Barcode 5100 [facility] Blood component type [id number] [facility] Expiration Date [facility] Status of unit /RELEASED [facility] Unit ABO O [facility] Unit RH Positive [facility] BB Type Barcode 5100 [facility] Blood component type [id number] [facility] Expiration Date [facility] Status of unit ISSUED [facility] Unit ABO O [facility] Unit RH Positive [facility] Interpretation and review of laboratory results Abnormal [facility] Interpretation and review of laboratory results Abnormal [facility] PHOSPHORUSon 06-29-2024 Phosphate [Mass/Vol] 3.3 mg/dL Normal 2.4-4.9 [facility] Comment on above: Performed By: #### I 8XCA #### [facility] ([id number]) [address] [place] [address] PLATELET FUNCTIONon 06-29-19 25 COLLAGEN/ADP 162 sec High 0-114 [facility] Comment on above: Performed By: #### C BCA, 5643-2, 1798-8, CMP, 3040-3, 64000-6, PINR, 76675-7 #### [facility] ([id number]) [address], [address] [place] [address] COLLAGEN/EPINEPHRINE 116 sec Normal 0-179 [facility] Comment on above: Performed By: #### C BCA, 5643-2, 1798-8, CMP, 3040-3, 59390-6, PINR, 36335-3 #### [facility] ([id number]) [address], [address] [place] [address] PFA INTERP This pattern is most commonly seen in patients Normal [facility] Comment on above: Result Comment: with von Willebrand disease or congenital platelet defects. However, thrombocytopenia (platelet count <100,000), anemia(HCT<30%), cardiovascular or renal disease may give abnormal results not related to an inherent platelet function abnormality. Futher platelet function studies may be indicated. Performed By: #### C BCA, 5643-2, 1798-8, CMP, 3040-3, 19345-4, PINR, 90999-3 #### [facility] ([id number]) [address], [address] [place] [address] POC CHEM7 W/ HCTon 5 Chloride [Moles/Vol] 107 mmol/L Normal 98-109 [facility] Comment on above: Performed By: #### I 8XCA #### [facility] ([id number]) [address] [place] [address] CO2 [Moles/Vol] 21 mmol/L Low 22-32 [facility] Comment on above: Performed By: #### I 8XCA #### [facility] ([id number]) [address] [place] [address] Creatinine [Mass/Vol] 1.7 mg/dL High 0.7-1.2 [facility] Comment on above: Result Comment: METH OD TRACEABLE TO IDMS STANDARD Performed By: #### I 8XCA #### [facility] ([id number]) [address] [place] [address] GFR/1.73 sq M.predicted among non-blacks MDRD (S/P/Bld) [Vol rate/Area] 41 mL/min/{1.73_m2} Low >59 Pr [facility] Comment on above: Result Comment: Reported eGFR is based on the CKD-EPI 2020 equation that does not use a race coefficient. Performed By: #### I 8XCA #### [facility] ([id number]) [address] [place] [address] Glucose [Mass/Vol] 103 mg/dL High 65-99 [facility] Comment on above: Performed By: #### I 8XCA #### [facility] ([id number]) [address] [place] [address] Hematocrit (Bld) [Volume fraction] 20 % Low 39-49 [facility] Comment on above: Performed By: #### I 8XCA #### [facility] ([id number]) [address] [place] [address] Potassium [Moles/Vol] 3.5 mmol/L Normal 3.5-5.0 [facility] Comment on above: Performed By: #### I 8XCA #### [facility] ([id number]) [address] [place] [address] Sodium [Moles/Vol] 143 mmol/L Normal 134-146 [facility] Comment on above: Performed By: #### I 8XCA #### [facility] ([id number]) [address] [place] [address] Urea nitrogen [Mass/Vol] 14 mg/dL Normal 6-27 [facility] Comment on above: Performed By: #### I 8XCA #### [facility] ([id number]) [address] [place] [address] POCT Electrolytes w/ BUN, Cr eat, Gluc, Hematocriton 06-29-2024 Chloride [Moles/Vol] 107 mmol/L 98 - 10 9 mmol/L [facility] CO2 [Moles/Vol] 21 mmol/L Low 22 - 32 mmol/L [facility] Creatinine [Mass/Vol] 1.7 mg/dL High 0.7 - 1.2 mg/dL [facility] Comment on above: METHOD TRACEABLE TO [facility] STANDARD eGFR (CKD-EPI)non-race dependent 41 Low - PINF [facility] Comment on above: Reported eGFR is based on the CKD-EPI 2020 equation that does not use a race coefficient. Glucose [Mass/Vol] 103 mg/dL High 65 - 99 mg/dL [facility] Hematocrit (Bld) [Volume fraction] 20 % Low 39 - 49 % [facility] Interpretation and review of laboratory results Abnormal [facility] Potassium [Moles/Vol] 3.5 mmol/L 3.5 - 5.0 mmol/L [facility] Sodium [Moles/Vol] 143 mmol/L 134 - 146 mmol/L [facility] Urea nitrogen [Mass/Vol] 14 mg/dL 6 - 27 mg/dL [facility] PROTIME AND INRon 06-29-2024 INR Coag (PPP) [Relative time] 1.6 {INR} High 0.8-1.1 [facility] Comment on above: Performed By: #### C BCA, 5643-2, 1798-8, CMP, 3040-3, 02130-8, PINR, 87477-9 #### [facility] ([id number]) [address] [facility], [address] [place] [address] PT Coag (PPP) [Time] 18.1 s High 9.8-13.2 [facility] Comment on above: Performed By: #### C BCA, 5643-2, 1798-8, CMP, 3040-3, 43758-0, PINR, 00653-8 #### [facility] ([id number]) [address] [facility], [address] [place] [address] Phosphoruson 06-29-2024 Phosphate [Mass/Vol] 3.3 mg/dL 2.4 - 4 .9 mg/dL [facility] Platelet function teston Interpretation and review of laboratory results Abnormal [facility] Platelet function (closure time) collagen+ADP induced (Bld) [Time] 162 High [facility] Platelet function (closure time) collagen+EPINEPHrine induced (Bld) [Time] 116 [facility] Platelet function (closure time) Renaldo (Bld) [Interp] This pattern is most commonly seen in patients [facility] Comment on above: with von Willebrand disease or congenital platelet defects. However, thrombocytopenia (platelet count <100,000), anemia(HCT<30%), cardiovascular or renal disease may give abnormal results not related to an inherent platelet function abnormality. Futher platelet function studies may be indicated. [facility] Protime & INRon 06-29-2024 INR Coag (PPP) [Relative time] 1.6 {INR} High [facility] PT Coag (PPP) [Time] 18.1 s High [facility] Type and screen(includes ind irect zoie)on 06-29-2024 ABO A [facility] Rh Nom (Bld) Positive [facility] URINALYSISon 06-29-2024 Bilirubin Ql (U) Negative Normal NEG [facility] Comment on above: Performed By: #### I 8XCA #### [facility] ([id number]) [address] [place] [address] BLOOD/HGB Large Abnormal NEG [facility] Comment on above: Performed By: #### I 8XCA #### [facility] ([id number]) [address] [place] [address] Color (U) ALISSA Abnormal YELLOW [facility] Comment on above: Performed By: #### I 8XCA #### [facility] ([id number]) [address] [place] [address] Glucose Ql (U) >1000 Abnormal NEG [facility] Comment on above: Performed By: #### I 8XCA #### [facility] ([id number]) [address] [place] [address] Ketones Ql (U) Negative Normal NEG [facility] Comment on above: Performed By: #### I 8XCA #### [facility] ([id number]) [address] [place] [address] Leukocyte esterase Test strip Ql (U) Negative Normal NEG [facility] Comment on above: Result Comment: HIGH CONCENTRATIONS OF GLUCOSE MAY DECREASE THE REACTIVITY OF THE DIPSTICK LEUKOCYTE TEST PAD. Performed By: #### I 8XCA #### [facility] ([id number]) [address] [place] [address] MUCOUS PRESENT Abnormal NONE [facility] Comment on above: Performed By: #### I 8XCA #### [facility] ([id number]) [address] [place] [address] Nitrite Ql (U) Negative Normal NEG [facility] Comment on above: Performed By: #### I 8XCA #### [facility] ([id number]) [address] [place] [address] pH (U) 5.5 [pH] Normal 5.0-8.5 [facility] Comment on above: Performed By: #### I 8XCA #### [facility] ([id number]) [address] [place] [address] Protein Ql (U) 50 mg/dL Abnormal NEG [facility] Comment on above: Performed By: #### I 8XCA #### [facility] ([id number]) [address] [place] [address] R.B.CELLS >720 High 0-5 [facility] Comment on above: Performed By: #### I 8XCA #### [facility] ([id number]) [address] [place] [address] Specific gravity (U) [Rel density] 1.015 Normal 1.003-1.03 5 [facility] Comment on above: Performed By: #### I 8XCA #### [facility] ([id number]) [address] [place] [address] SQUAMOUS EPITHELIUM 1 /hpf Normal 0-5 [facility] Comment on above: Performed By: #### I 8XCA #### [facility] ([id number]) [address] [place] [address] TURBIDITY CLEAR Normal CLEAR [facility] Comment on above: Performed By: #### I 8XCA #### [facility] ([id number]) [address] [place] [address] Urinalysis dipstick W Reflex Microscopic panel (U) URINE RECEIVED WITHOUT PRESERVATIVE-DELAYS IN TRANSPORT MAY AFFECT RESULTS.INTERPRET WITH CAUTION AND CLINICAL CORRELATION IS RECOMMENDED. Normal [facility] Comment on above: Performed By: #### I 8XCA #### [facility] ([id number]) [address] [place] [address] Urobilinogen (U) [Mass/Vol] mg/dL Normal <1.1 [facility] Comment on above: Performed By: #### I 8XCA #### [facility] ([id number]) [address] [place] [address] W.B.CELLS 2 /hpf Normal 0-5 [facility] Comment on above: Performed By: #### I 8XCA #### [facility] ([id number]) [address] [place] [address] URINE CULTUREon 06-29-2024 Bacteria identified Cx Nom (U) SPECIMEN NOTES URINE RECEIVED WITHOUT PRESERVATIVE CULTURE RESULTS NO GROWTH AT <1000 CFU/mL Normal [facility] Comment on above: Performed By: #### C BCA, 5643-2, 1798-8, CMP, 3040-3, 50286-2, PINR, 36266-4 #### [facility] ([id number]) [address] [facility], [address] [place] [address] Urinalysison 06-29-2024 Bilirubin Ql (U) Negative Negative^N egative [facility] Color (U) ALISSA Abnormal YELLOW^YEL LOW [facility] Epithelial cells Auto (Urine sed) [#/Area] 1 [facility] Glucose (U) [Mass/Vol] mg/dL Abnormal Negat gabriela^N egative mg/dL [facility] Hemoglobin Auto test strip Ql (U) Large Abnormal Negative^N egative [facility] Interpretation and review of laboratory results Abnormal [facility] Ketones (U) [Mass/Vol] Negative Negat gabriela^N egative mg/dL [facility] Leukocyte esterase Auto test strip Ql (U) Negative Negative^N egative [facility] Comment on above: HIGH CONCENTRATIONS OF GLUCOSE MAY DECREASE THE REACTIVITY OF THE DIPSTICK LEUKOCYTE TEST PAD. Mucus Ql (Urine sed) PRESENT Abnormal NONE^NONE [facility] Nitrite Auto test strip Ql (U) Negative Negative^N egative [facility] pH (U) 5.5 [pH] 5.0 - 8.5 [facility] Protein (U) [Mass/Vol] 50 mg/dL Abnormal Negat gabriela^N egative [facility] RBC Auto (Urine sed) [#/Area] High [facility] Specific gravity Refractometry automated (U) [Rel density] 1.015 1.003 - 1.035 [facility] Turbidity Ql (U) CLEAR CLEAR^OMI R [facility] Urinalysis microscopic panel Auto (Urine sed) [#/Area] URINE RECEIVED WITHOUT PRESERVATIVE-DELAYS IN TRANSPORT MAY AFFECT RESULTS.INTERPRET WITH CAUTION AND CLINICAL CORRELATION IS RECOMMENDED. [facility] Urobilinogen Qn (U) NINF [facility] WBC Auto (Urine sed) [#/Area] 2 [facility] XR CHEST 1 VWon 06-29-2024 XR CHEST [...] Ricardo Cueto MD on 06/29/2024 1:47 AM [facility] XR Chest Single viewon 06-29 HISTORY: Pain, trauma COMPARISON: None FINDINGS: AP supine view of the chest was performed. Left-sided pacemaker with intact leads. Left basilar atelectasis. No overt vascular congestion. No significant pleural effusion or pneumothorax. Osseous structures are grossly intact. IMPRESSION: * No acute abnormality. 7 Finalized by Ricardo Cueto MD on 06/29/2024 1:47 AM [facility] Ricardo Cueto MD - 06/29/2024 HISTORY: Pain, trauma COMPARISON: None FINDINGS: AP supine view of the chest was performed. Left-sided pacemaker with intact leads. Left basilar atelectasis. No overt vascular congestion. No significant pleural effusion or pneumothorax. Osseous structures are grossly intact. IMPRESSION: * No acute abnormality. 7 Finalized by Ricardo Cueto MD on 06/29/2024 1:47 AM [facility] Radiology Study observation (narrative) [facility] XR Chest Single viewOrdered By: Ricardo Cueto on 06-29-2024 [facility] Work Phone: aPTT Coag (PPP) [Time]on aPTT Coag (Bld) [Time] 33 s Normal 26-37 Pr [facility] Comment on above: Performed By: #### C BCA, 5643-2, 1798-8, CMP, 3040-3, 83380-1, PINR, 57538-0 #### [facility] ([id number]) [address], [address] [place] [address] BLOOD CULTUREon 06-28-2024 Bacteria identified Aer cx Nom (Bld) CULTURE RESULTS NO GROWTH 5 DAYS Normal [facility] Bacteria identified Aer cx Nom (Bld) CULTURE RESULTS NO GROWTH 5 DAYS Normal [facility] CBC AND AUTO DIFFon 06-28-19 25 ABSOLUTE BASOPHIL 0.0 X10E9/L Normal 0.0-0.2 [facility] Comment on above: Performed By: #### C BCA, PINR, 41682-8, CMP, 07944-2, 80220-5 #### [facility] ([id number]) [address] [place] [address] #### 15481-7 #### [facility] ([id number]) [address] [facility], [address] [place] [address] ABSOLUTE NEUTROPHIL 12.3 X10E9/L High 1.5-6.6 [facility] Comment on above: Performed By: #### C BCA, PINR, 06687-4, CMP, 02738-1, 34399-7 #### [facility] ([id number]) [address] [place] [address] #### 79516-4 #### [facility] ([id number]) [address] [facility], [address] [place] [address] Basophils/100 WBC (Bld) 0.3 % Normal P [facility] Comment on above: Performed By: #### C BCA, PINR, 58633-3, CMP, 26579-8, 52374-2 #### [facility] ([id number]) [address] [place] [address] #### 04518-4 #### [facility] ([id number]) [address], [address] [place] [address] Eosinophils (Bld) [#/Vol] 0.0 10*3/uL Normal 0.0-0.4 [facility] Comment on above: Performed By: #### C BCA, PINR, 87474-0, CMP, 81714-6, 82264-5 #### [facility] ([id number]) [address] [place] [address] #### 61181-5 #### [facility] ([id number]) [address] [facility], [address] [place] [address] Eosinophils/100 WBC (Bld) 0.1 % Normal [facility] Comment on above: Performed By: #### C BCA, PINR, 32468-6, CMP, 58746-6, 68333-6 #### [facility] ([id number]) [address] [place] [address] #### 26214-4 #### [facility] ([id number]) [address], [address] [place] [address] Erythrocyte distribution width (RBC) [Ratio] 15.0 % Normal 11.5-15.0 [facility] Comment on above: Performed By: #### C BCA, PINR, 85794-6, CMP, 87464-7, 89906-1 #### [facility] ([id number]) [address] [place] [address]70[address] #### 68440-0 #### [facility] ([id number]) [address], [address] [place] [address] Hematocrit (Bld) [Volume fraction] 25.7 % Low 39-49 [facility] Comment on above: Performed By: #### C BCA, PINR, 93679-7, CMP, 30438-2, 74874-4 #### [facility] ([id number]) [address] [place] [address] 21931 #### 34823-1 #### [facility] ([id number]) [address], [address] [place] [address] Hemoglobin (Bld) [Mass/Vol] 8.6 g/dL Low 13.0-17.0 [facility] Comment on above: Performed By: #### C BCA, PINR, 84162-7, CMP, 86508-6, 65188-7 #### [facility] ([id number]) [address] [place] [address] #### 45721-5 #### [facility] ([id number]) [address], [address] [place] [address] Lymphocytes (Bld) [#/Vol] 0.5 10*3/uL Low 1.0-3.5 [facility] Comment on above: Performed By: #### C BCA, PINR, 63148-7, CMP, 44647-8, 18599-3 #### [facility] ([id number]) [address] [place] [address]4741 #### 09781-5 #### [facility] ([id number]) [address], [address] [place] [address] Lymphocytes/100 WBC (Bld) 3.3 % Normal [facility] Comment on above: Performed By: #### C BCA, PINR, 32021-2, CMP, 99381-2, 25768-7 #### [facility] ([id number]) [address] [place] [address] 35522 #### 40150-3 #### [facility] ([id number]) [address], [address] [place] [address] MCH (RBC) [Entitic mass] 31.4 pg Normal 27-34 [facility] Comment on above: Performed By: #### C BCA, PINR, 63861-3, CMP, 75825-8, 55073-4 #### [facility] ([id number]) [address] [place] [address]4750 #### 92949-1 #### [facility] ([id number]) [address] [facility], [address] [place] [address] MCHC (RBC) [Mass/Vol] 33.6 g/dL Normal 32-36 [facility] Comment on above: Performed By: #### C BCA, PINR, 66598-6, CMP, 29919-5, 77182-2 #### [facility] ([id number]) [address] [place] [address] 38878 #### 09615-8 #### [facility] ([id number]) [address] [facility], [address] [place] [address] MCV (RBC) [Entitic vol] 94 fL Normal 80-100 P [facility] Comment on above: Performed By: #### C BCA, PINR, 83706-3, CMP, 38974-9, 69820-3 #### [facility] ([id number]) [address] [place] [address] 71435 #### 53739-1 #### [facility] ([id number]) [address] [facility], [address] [place] [address] Monocytes (Bld) [#/Vol] 1.0 10*3/uL High 0-0.9 [facility] Comment on above: Performed By: #### C BCA, PINR, 17000-2, CMP, 60928-4, 71445-9 #### [facility] ([id number]) [address] [place] [address] 79501 #### 65403-2 #### [facility] ([id number]) [address] [facility], [address] [place] [address] Monocytes/100 WBC (Bld) 7.4 % Normal [facility] Comment on above: Performed By: #### C BCA, PINR, 92209-9, CMP, 75582-7, 17230-2 #### [facility] ([id number]) [address] [place] [address] 12480 #### 79250-2 #### [facility] ([id number]) [address] [facility], [address] [place] [address] Neutrophils/100 WBC (Bld) 88.9 % Normal [facility] Comment on above: Performed By: #### C BCA, PINR, 81137-7, CMP, 25069-3, 75867-8 #### [facility] ([id number]) [address] [place] [address] 49007 #### 39440-7 #### [facility] ([id number]) [address] [facility], [address] [place] [address] Platelet mean volume (Bld) [Entitic vol] 9.3 fL Normal 7-12 [facility] Comment on above: Performed By: #### C BCA, PINR, 17702-3, CMP, 66311-5, 56480-4 #### [facility] ([id number]) [address] [place] [address] 86267 #### 56276-1 #### [facility] ([id number]) [address] [facility], [address] [place] [address] Platelets (Bld) [#/Vol] 252 10*3/uL Normal 150-450 [facility] Comment on above: Performed By: #### C BCA, PINR, 43553-3, CMP, 72913-7, 70225-5 #### [facility] ([id number]) [address] [place] [address] 62376 #### 29350-8 #### [facility] ([id number]) [address], [address] [place] [address] RBC COUNT 2.74 X10E12/L Low 4.10-5.70 [facility] Comment on above: Performed By: #### C BCA, PINR, 34722-3, CMP, 19062-6, 63976-8 #### [facility] ([id number]) [address] [place] [address] 84201 #### 73770-5 #### [facility] ([id number]) [address], [address] [place] [address] WBC (Bld) [#/Vol] 13.8 10*3/uL High 4.0-11.0 [facility] Comment on above: Performed By: #### C BCA, PINR, 48405-4, CMP, 80665-8, 57331-2 #### [facility] ([id number]) [address] [place] [address] 31799 #### 88488-0 #### [facility] ([id number]) [address], [address] [place] [address] COMPREHENSIVE METABOLIC PANE Larry 06-28-2024 Albumin [Mass/Vol] 2.6 g/dL Low 3.2-5.3 [facility] Comment on above: Performed By: #### C BCA, PINR, 42681-7, CMP, 51854-2, 78865-3 #### [facility] ([id number]) [address] [place] [address] 88545 #### 17088-2 #### [facility] ([id number]) [address], [address] [place] [address] ALP [Catalytic activity/Vol] 70 U/L Normal 39-130 [facility] Comment on above: Performed By: #### C BCA, PINR, 76990-8, CMP, 73344-1, 11693-4 #### [facility] ([id number]) [address] [place] [address] 97595 #### 67596-3 #### [facility] ([id number]) [address] [facility], [address] [place] [address] ALT [Catalytic activity/Vol] 16 U/L Normal 0-40 [facility] Comment on above: Performed By: #### C BCA, PINR, 71560-6, CMP, 85812-4, 58082-0 #### [facility] ([id number]) [address] [place] [address] 55051 #### 59170-9 #### [facility] ([id number]) [address] [facility], [address] [place] [address] Anion gap [Moles/Vol] 6 mmol/L Normal 5-15 [facility] Comment on above: Performed By: #### C BCA, PINR, 51243-6, CMP, 05281-3, 02550-3 #### [facility] ([id number]) [address] [place] [address] 08918 #### 24030-1 #### [facility] ([id number]) [address] [facility], [address] [place] [address] AST [Catalytic activity/Vol] 25 U/L Normal 0-41 [facility] Comment on above: Performed By: #### C BCA, PINR, 90068-4, CMP, 27722-5, 53120-1 #### [facility] ([id number]) [address] [place] [address] 64630 #### 53513-0 #### [facility] ([id number]) [address] [place] [address] Bilirubin [Mass/Vol] 1.7 mg/dL High 0.3-1.2 [facility] Comment on above: Performed By: #### C BCA, PINR, 71610-3, CMP, 75546-1, 84558-8 #### [facility] ([id number]) [address] [place] [address] 03416 #### 55348-8 #### [facility] ([id number]) [address] [facility], [address] [place] [address] Calcium [Mass/Vol] 8.1 mg/dL Low 8.5-10.5 [facility] Comment on above: Performed By: #### C BCA, PINR, 16391-6, CMP, 25782-3, 71774-8 #### [facility] ([id number]) [address] [place] [address] 36899 #### 34747-7 #### [facility] ([id number]) [address], [address] [place] [address] Chloride [Moles/Vol] 108 mmol/L Normal 98-109 [facility] Comment on above: Performed By: #### C BCA, PINR, 24674-5, CMP, 93151-0, 24484-1 #### [facility] ([id number]) [address] [place] [address] 26885 #### 05789-7 #### [facility] ([id number]) [address] [place] [address] CO2 [Moles/Vol] 23 mmol/L Normal 22-32 [facility] Comment on above: Performed By: #### C BCA, PINR, 10671-2, CMP, 59503-2, 66819-6 #### [facility] ([id number]) [address] [place] [address] 54843 #### 91806-6 #### [facility] ([id number]) [address] [place] [address] Creatinine [Mass/Vol] 1.90 mg/dL High 0.70-1.20 [facility] Comment on above: Result Comment: METH OD TRACEABLE TO IDMS STANDARD Performed By: #### C BCA, PINR, 56166-5, CMP, 66556-0, 28470-1 #### [facility] ([id number]) [address] [place] [address] 10643 #### 04993-0 #### [facility] ([id number]) [address] [facility], [address] [place] [address] GFR/1.73 sq M.predicted among non-blacks MDRD (S/P/Bld) [Vol rate/Area] 36 mL/min/{1.73_m2} Low >59 Pr [facility] Comment on above: Result Comment: Reported eGFR is based on the CKD-EPI 2020 equation that does not use a race coefficient. Performed By: #### C BCA, PINR, 95607-8, CMP, 73436-9, 36109-3 #### [facility] ([id number]) [address] [place] [address] 01759 #### 19137-6 #### [facility] ([id number]) [address] [place] [address] Glucose [Mass/Vol] 137 mg/dL High 65-99 [facility] Comment on above: Performed By: #### C BCA, PINR, 65972-7, CMP, 62814-1, 67482-6 #### [facility] ([id number]) [address] [place] [address] 72419 #### 97787-8 #### [facility] ([id number]) [address] [place] [address] Potassium [Moles/Vol] 3.8 mmol/L Normal 3.5-5.0 [facility] Comment on above: Performed By: #### C BCA, PINR, 42005-6, CMP, 13693-9, 37893-0 #### [facility] ([id number]) [address] [place] [address] 31887 #### 83272-6 #### [facility] ([id number]) [address] [facility], [address] [place] [address] Protein [Mass/Vol] 6.1 g/dL Normal 6.0-8.0 [facility] Comment on above: Performed By: #### C BCA, PINR, 50877-4, CMP, 22280-0, 61372-0 #### [facility] ([id number]) [address] [place] [address] 51452 #### 73895-8 #### [facility] ([id number]) [address] [facility], [address] [place] [address] Sodium [Moles/Vol] 137 mmol/L Normal 134-146 [facility] Comment on above: Performed By: #### C BCA, PINR, 51108-4, CMP, 94964-0, 35970-5 #### [facility] ([id number]) [address] [place] [address] 77618 #### 45188-3 #### [facility] ([id number]) [address] [place] [address] Urea nitrogen [Mass/Vol] 20 mg/dL Normal 5-27 [facility] Comment on above: Performed By: #### C BCA, PINR, 07292-9, CMP, 85260-2, 13598-5 #### [facility] ([id number]) [address] [facility] [place] [address] #### 57802-1 #### [facility] ([id number]) [address] [facility], [address] [place] [address] CT ABDOMEN AND PELVIS W CONT on [...] Alexander MD on 06/28/2024 8:54 PM Normal [facility] CT BRAIN WO CONTon CT BRAIN [...] Alexander MD on 06/28/2024 8:37 PM Normal [facility] CT CERVICAL SPINE WO CONTon 06-28-2024 [...] Alexander MD on 06/28/2024 8:39 PM Normal [facility] CT FACIAL BONES WO CONTon CT [...] Alexander MD on 06/28/2024 8:41 PM Normal [facility] Fibrinogen Coagulation.deriv ed (PPP) [Mass/Vol]on 06-28-2024 FIBRINOGEN 644 mg/dL High 190-480 [facility] Comment on above: Performed By: #### P INR, 09258-0 #### [facility] ([id number]) [address] [place] [address] 86962 #### CBCA, CMP #### [facility] ([id number]) [address] [facility], [address] [place] [address] HEMOGLOBINon 06-28-2024 Hemoglobin (Bld) [Mass/Vol] 7.9 g/dL Low 13.0-17.0 [facility] Comment on above: Performed By: #### P INR, 68266-2 #### [facility] ([id number]) [address] [place] [address] 39419 #### CBCA, CMP #### [facility] ([id number]) [address] [facility] [place] [address] Hematocrit Auto (Bld) [Volum e fraction]on 06-28-2024 Hematocrit (Bld) [Volume fraction] 23.3 % Low 39-49 [facility] Comment on above: Performed By: #### P INR, 95391-0 #### [facility] ([id number]) [address] [place] [address] 68832 #### CBCA, CMP #### [facility] ([id number]) [address] [place] [address] Lactate (P rosanne) [Moles/Vol]o n 06-28-2024 LACTATE W/REFLEX 1.6 mmol/L Normal 0.4-2.0 [facility] Comment on above: Result Comment: Result did not trigger repeat Lactate, re-order if needed. Performed By: #### P INR, 49553-9 #### [facility] ([id number]) [address] [place] [address] 18161 #### CBCA, CMP #### [facility] ([id number]) [address] [facility], [address] [place] [address] MAGNESIUMon 06-28-2024 Magnesium [Mass/Vol] 1.9 mg/dL Normal 1.8-2.6 [facility] Comment on above: Performed By: #### C BCA, PINR, 66972-2, CMP, 66291-9, 01618-3 #### [facility] ([id number]) [address] [place] [address] #### 42159-0 #### [facility] ([id number]) [address], [address] [place] [address] PROTIME AND INRon 06-28-2024 INR Coag (PPP) [Relative time] 1.7 {INR} High 0.8-1.1 [facility] Comment on above: Performed By: #### P INR, 61771-9 #### [facility] ([id number]) [address] [place] [address] #### CBCA, CMP #### [facility] ([id number]) [address], [address] [place] [address] PT Coag (PPP) [Time] 18.9 s High 9.8-13.2 [facility] Comment on above: Result Comment: NEW REFERENCE RANGE Performed By: #### P INR, 21165-5 #### [facility] ([id number]) [address] [place] [address] #### CBCA, CMP #### [facility] ([id number]) [address], [address] [place] [address] INR Coag (PPP) [Relative time] 3.1 {INR} High 0.8-1.1 [facility] Comment on above: Performed By: #### C BCA, PINR, 31892-8, CMP, 77733-6, 24583-6 #### [facility] ([id number]) [address] [place] [address] #### 05952-0 #### [facility] ([id number]) [address], [address] [place] [address] PT Coag (PPP) [Time] 34.3 s High 9.8-13.2 [facility] Comment on above: Result Comment: NEW REFERENCE RANGE Performed By: #### C BCA, PINR, 92828-2, CMP, 88738-2, 94732-5 #### [facility] ([id number]) [address] [place] [address] #### 84059-9 #### [facility] ([id number]) [address], [address] [place] [address] Procalcitonin IA [Mass/Vol]o n 06-28-2024 PROCALCITONIN 0.33 ng/mL High <0.05 [facility] Comment on above: Result Comment: NOTE <0.50 ng/mL - Low risk of severe sepsis and/or septic shock. <2.00 ng/mL - Recommend retesting within 6-24 hours. >2.00 ng/mL - High risk of sepsis and/or septic shock. Performed By: #### C BCA, PINR, 97131-0, CMP, 72583-0, 44221-3 #### [facility] ([id number]) [address] [facility], [place] [address] #### 98038-6 #### [facility] ([id number]) [address] [place] [address], [address] [place] [address] SARS/FLU A+B/RSV by NAAT/Mol ecularon 06-28-2024 SARS/FLU [...] operators who are performing tests using either [employer] Focus DX or [employer] systems and is limited to laboratories that [...] repeat. Fact Sheet for Healthcare Providers: https://www.fda.gov /media/619822/downl oad Fact Sheet for Patients: https://www.fda.gov /media/766940/downl oad Normal [facility] Comment on above: Performed By: #### P INR, 99561-8 #### [facility] ([id number]) [address] [place] [address] #### CBCA, CMP #### [facility] ([id number]) [address], [address] [place] [address] URINALYSISon 06-28-2024 Bilirubin Ql (U) Negative Normal NEG [facility] Comment on above: Performed By: #### P INR, 59828-2 #### [facility] ([id number]) [address] [place] [address] #### CBCA, CMP #### [facility] ([id number]) [address], [address] [place] [address] BLOOD/HGB Large Abnormal NEG [facility] Comment on above: Performed By: #### P INR, 45540-4 #### [facility] ([id number]) [address] [place] [address] #### CBCA, CMP #### [facility] ([id number]) [address] [facility], [address] [place] [address] Color (U) ALISSA Abnormal YELLOW [facility] Comment on above: Performed By: #### P INR, 52192-8 #### [facility] ([id number]) [address] [place] [address] #### CBCA, CMP #### [facility] ([id number]) [address], [address] [place] [address] Glucose Ql (U) >1000 Abnormal NEG [facility] Comment on above: Performed By: #### P INR, 51857-4 #### [facility] ([id number]) [address] [place] [address] #### CBCA, CMP #### [facility] ([id number]) [address], [address] [place] [address] Ketones Ql (U) Negative Normal NEG [facility] Comment on above: Performed By: #### P INR, 06804-7 #### [facility] ([id number]) [address] [place] [address] #### CBCA, CMP #### [facility] ([id number]) [address], [address] [place] [address] Leukocyte esterase Test strip Ql (U) Negative Normal NEG [facility] Comment on above: Result Comment: HIGH CONCENTRATIONS OF GLUCOSE MAY DECREASE THE REACTIVITY OF THE DIPSTICK LEUKOCYTE TEST PAD. Performed By: #### P INR, 23246-6 #### [facility] ([id number]) [address] [place] [address] #### CBCA, CMP #### [facility] ([id number]) [address], [address] [place] [address] Nitrite Ql (U) Negative Normal [facility] Comment on above: Performed By: #### P INR, 41404-4 #### [facility] ([id number]) [address] [place] [address] #### CBCA, CMP #### [facility] ([id number]) [address] [facility], [address] [place] [address] pH (U) 6.0 [pH] Normal 5.0-8.5 [facility] Comment on above: Performed By: #### P INR, 98100-2 #### [facility] ([id number]) [address] [place] [address] #### CBCA, CMP #### [facility] ([id number]) [address], [address] [place] [address] Protein Ql (U) 100 mg/dL Abnormal NEG [facility] Comment on above: Performed By: #### P INR, 80371-8 #### [facility] ([id number]) [address] [place] [address] #### CBCA, CMP #### [facility] ([id number]) [address] [facility], [address] [place] [address] R.B.CELLS 10 /hpf High 0-5 [facility] Comment on above: Performed By: #### P INR, 50226-5 #### [facility] ([id number]) [address] [place] [address] #### CBCA, CMP #### [facility] ([id number]) [address] [facility], [address] [place] [address] Specific gravity (U) [Rel density] 1.015 Normal 1.003-1.03 5 [facility] Comment on above: Performed By: #### P INR, 65443-9 #### [facility] ([id number]) [address] [place] [address] #### CBCA, CMP #### [facility] ([id number]) [address], [address] [place] [address] TURBIDITY HAZY Abnormal CLEAR [facility] Comment on above: Performed By: #### P INR, 48221-3 #### [facility] ([id number]) [address] [place] [address] #### CBCA, CMP #### [facility] ([id number]) [address], [address] [place] [address] Urobilinogen Qn (U) 0.2 {Liana'U}/dL Normal <1.1 [facility] Comment on above: Performed By: #### P INR, 66917-8 #### [facility] ([id number]) [address] [place] [address] #### CBCA, CMP #### [facility] ([id number]) [address], [address] [place] [address] W.B.CELLS 0 /hpf Normal 0-5 [facility] Comment on above: Performed By: #### P INR, 85948-9 #### [facility] ([id number]) [address] [place] [address] #### CBCA, CMP #### [facility] ([id number]) [address], [address] [place] [address] URINE CULTUREon 06-28-2024 Bacteria identified Cx Nom (U) CULTURE RESULTS NO GROWTH AT <1000 CFU/mL Normal [facility] Comment on above: Performed By: #### P INR, 10691-2 #### [facility] ([id number]) [address] [place] [address] #### CBCA, CMP #### [facility] ([id number]) [address], [address] [place] [address] aPTT Coag (PPP) [Time]on aPTT Coag (Bld) [Time] 40 s High 26-37 Pr [facility] Comment on above: Result Comment: NEW REFERENCE RANGE Performed By: #### C BCA, PINR, 64099-4, CMP, 91826-9, 69397-6 #### [facility] ([id number]) [address] [facility], [place] [address] #### 69080-4 #### [facility] ([id number]) [address] [place] [address], [address] [place] [address] APTTon 06-26-2024 ACTIVATED PARTIAL THROMBOPLASTIN TIME IN PPP BY COAGULATION ASSAY 35.6 Seconds High 25.0-35.0 [facility] Comment on above: Result Comment: Clin ical significance of the APTT is questionable in the presence of heparin. Performed By: #### L [id number] ####[facility] ([facility])[address] [place] [address] B-TYPE NATRIURETIC PEPTIDEon 06-26-2024 Natriuretic peptide B (Bld) [Mass/Vol] 441 pg/mL High 0-100 [facility] Comment on above: Performed By: #### L [id number] ####[facility] ([facility])[address] [place] [address] CBC WITH AUTO DIFFERENTIALon 06-26-2024 Basophils (Bld) [#/Vol] 0.03 10*3/uL Normal 0.00-0.20 [facility] Comment on above: Performed By: #### L [id number] ####[facility] ([facility])[address] [place] [address] Basophils/100 WBC (Bld) 0.3 % Normal 0.0-1.0 [facility] Comment on above: Performed By: #### L [id number] ####[facility] ([facility] [place] [address] Eosinophils (Bld) [#/Vol] 0.06 10*3/uL Normal 0.00-0.5 0 [facility] Comment on above: Performed By: #### L [id number] ####[facility] (BE[facility])[address] [place] [address] Eosinophils/100 WBC (Bld) 0.6 % Normal 0.0-6.0 [facility] Comment on above: Performed By: #### L [id number] ####[facility] ([facility] [place] [address] Erythrocyte distribution width (RBC) [Ratio] 14.2 % Normal 11.5-15.0 [facility] Comment on above: Performed By: #### L [id number] ####[facility] ([facility] [place] [address] ERYTHROCYTE MEAN CORPUSCULAR HEMOGLOBIN CONCENTRATION (G/DL) BY AUTOMATED 31.8 g/dL Low 32.0-35.0 [facility] Comment on above: Performed By: #### L [id number] ####[facility] ([facility])[address] [place] [address] Hematocrit (Bld) [Volume fraction] 34.3 % Low 39.0-55.0 [facility] Comment on above: Performed By: #### L [id number] ####[facility] ([facility])[address] [place] [address] Hemoglobin (Bld) [Mass/Vol] 10.9 g/dL Low 13.0-17.0 [facility] Comment on above: Performed By: #### L [id number] ####[facility] ([facility])[address] [place] [address] Immature granulocytes (Bld) [#/Vol] 0.08 10*3/uL Normal 0.00-0.20 [facility] Comment on above: Performed By: #### L [id number] ####[facility] ([facility])[address] [place] [address] Immature granulocytes/100 WBC (Bld) 0.8 % Normal 0.0-1.0 [facility] Comment on above: Performed By: #### L [id number] ####[facility] ([facility])[address] [place] [address] Lymphocytes (Bld) [#/Vol] 0.58 10*3/uL Low 1.20-4.0 0 [facility] Comment on above: Performed By: #### L [id number] ####[facility] ([facility])[address] [place] [address] Lymphocytes/100 WBC (Bld) 5.7 % Low 20.0-45.0 [facility] Comment on above: Performed By: #### L [id number] ####[facility] ([facility])[address] [place] [address] MCH (RBC) [Entitic mass] 30.9 pg Normal 27.0-33.0 [facility] Comment on above: Performed By: #### L [id number] ####[facility] ([facility])[address] [place] [address] MCV (RBC) [Entitic vol] 97.2 fL Normal 82.0-98.0 [facility] Comment on above: Performed By: #### L [id number] ####[facility] ([facility])[address] [place] [address] Monocytes (Bld) [#/Vol] 0.79 10*3/uL Normal 0.10-1.00 [facility] Comment on above: Performed By: #### L [id number] ####[facility] ([facility])[address] [place] [address] Monocytes/100 WBC (Bld) 7.8 % Normal 5.0-12.0 [facility] Comment on above: Performed By: #### L [id number] ####[facility] ([facility])[address] [place] [address] Neutrophils (Bld) [#/Vol] 8.64 10*3/uL High 1.60-7.6 0 [facility] Comment on above: Performed By: #### L [id number] ####[facility] ([facility])[address] [place] [address] Neutrophils/100 WBC (Bld) 84.8 % High 40.0-72.0 [facility] Comment on above: Performed By: #### L [id number] ####[facility] ([facility])[address] [place] [address] NRBC (PER 100 WBCS) BY AUTOMATED COUNT 0.0 % Normal 0 [facility] Comment on above: Performed By: #### L [id number] ####[facility] ([facility])[address] [place] [address] PLATELETS (10*3/UL) IN BLOOD AUTOMATED COUNT 191 10*3/uL Normal 150-400 [facility] Comment on above: Performed By: #### L [id number] ####[facility] ([facility])[address] [place] [address] RBC (Bld) [#/Vol] 3.53 10*6/uL Low 4.20-5.70 [facility] Comment on above: Performed By: #### L [id number] ####[facility] ([facility])[address] [place] [address] WBC (Bld) [#/Vol] 10.18 10*3/uL Normal 4.00-10.60 [facility] Comment on above: Performed By: #### L [id number] ####[facility] ([facility])[address] [place] [address] COMPREHENSIVE METABOLIC PANE Larry 06-26-2024 Albumin [Mass/Vol] 3.1 g/dL Low 3.5-5.7 [facility] Comment on above: Performed By: #### L [id number] ####[facility] ([facility])[address] [place] [address] ALP [Catalytic activity/Vol] 71 U/L Normal 34-104 [facility] Comment on above: Performed By: #### L [id number] ####[facility] ([facility])[address] [place] [address] ALT [Catalytic activity/Vol] 16 U/L Normal 7-52 [facility] Comment on above: Performed By: #### L [id number] ####[facility] ([facility])[address] [place] [address] Anion gap [Moles/Vol] 10 mmol/L Normal 7-20 [facility] Comment on above: Performed By: #### L [id number] ####[facility] ([facility])[address] [place] [address] AST [Catalytic activity/Vol] 23 U/L Normal 13-39 [facility] Comment on above: Performed By: #### L [id number] ####[facility] ([facility])[address] [place] [address] Bilirubin [Mass/Vol] 0.9 mg/dL Normal 0.3-1.0 [facility] Comment on above: Performed By: #### L [id number] ####[facility] ([facility])[address] [place] [address] Calcium [Mass/Vol] 8.1 mg/dL Low 8.6-10.3 [facility] Comment on above: Performed By: #### L [id number] ####[facility] ([facility])[address] [place] [address] Chloride [Moles/Vol] 108 mmol/L High 98-107 [facility] Comment on above: Performed By: #### L [id number] ####[facility] ([facility])[address] [place] [address] CO2 [Moles/Vol] 24 mmol/L Normal 21-31 [facility] Comment on above: Performed By: #### L [id number] ####[facility] ([facility] [place] [address] Creatinine [Mass/Vol] 1.28 mg/dL Normal 0.70-1.30 [facility] Comment on above: Performed By: #### L [id number] ####[facility] ([facility])[address] [place] [address] GLOMERULAR FILTRATION RATE ML/MIN/1.73 SQ M.PREDICTED 57.3 mL/min/1.73m*2 Low >60.0 [facility] Comment on above: Result Comment: The [facility]???s estimated glomerular filtration rate (eGFR) will [...] of individuals. Performed By: #### L [id number] ####[facility] ([facility])[address] [place] [address] Glucose [Mass/Vol] 117 mg/dL High 70-100 [facility] Comment on above: Performed By: #### L [id number] ####[facility] ([facility])[address] [place] [address] Potassium [Moles/Vol] 3.6 mmol/L Normal 3.5-5.1 [facility] Comment on above: Performed By: #### L [id number] ####[facility] ([facility])[address] [place] [address] Protein [Mass/Vol] 5.6 g/dL Low 6.0-8.3 [facility] Comment on above: Performed By: #### L [id number] ####[facility] ([facility])[address] [place] [address] Sodium [Moles/Vol] 138 mmol/L Normal 136-145 [facility] Comment on above: Performed By: #### L [id number] ####[facility] ([facility])[address] [place] [address] Urea nitrogen [Mass/Vol] 13 mg/dL Normal 7-25 [facility] Comment on above: Performed By: #### L [id number] ####[facility] ([facility] [place] [address] UREA NITROGEN/CREATININE (MASS RATIO) IN SER/PLAS 10.2 Normal [facility] Comment on above: Performed By: #### L [id number] ####[facility] ([facility])[address] [place] [address] CONSULTon 06-26-2024 CONSULT Normal [facility] CT ABDOMEN PELVIS WO IV CONT RASTon 06-26-2024 CT ABDOMEN PELVIS WO IV CONTRAST Normal [facility] EDNURSon 06-26-2024 EDNURS Gown ,call light, warm blanket, urinal, labeled speci cup provided. Son with pt. Pt transfer self to stretcher from personal w/c with some difficulty Normal [facility] EDNURS Normal [facility] EDPROVon 06-26-2024 EDPROV Normal [facility] MAGNESIUMon 06-26-2024 Magnesium [Mass/Vol] 1.7 mg/dL Low 1.9-2.7 [facility] Comment on above: Performed By: #### L [id number] ####[facility] ([facility])[address] [place] [address] PROTIME-INRon 06-26-2024 INR IN PPP BY COAGULATION ASSAY 2.07 High 0.90-1.10 [facility] Comment on above: Result Comment: ACCC P [...] CHEST 1995;108:[id number]. Performed By: #### L [id number] ####[facility] ([facility])[address] [address] PROTHROMBIN TIME (PT) IN PPP BY COAGULATION ASSAY 22.9 Seconds High 12.3-14.8 [facility] Comment on above: Performed By: #### L [id number] ####[facility] ([facility])[address] [place] [address] TROPONIN Ion 06-26-2024 Troponin I.cardiac [Mass/Vol] 0.01 ng/mL Normal 0.00-0.04 [facility] Comment on above: Performed By: #### L [id number] ####[facility] ([facility])[address] [facility] [place] [address] TYPE AND SCREENon 06-26-2024 AB SCREEN Negative Normal [facility] Comment on above: Performed By: #### L [id number] ####[facility], ABO group Nom (Bld) A Normal [facility] Comment on above: Performed By: #### L [id number] ####[facility], RH TYPE IN BLOOD Positive Normal [facility] Comment on above: Performed By: #### L [id number] ####[facility], URINALYSIS MICROSCOPIC WITH REFLEX CULTUREon 06-26-2024 MUCUS (#/LPF) IN URINE SEDIMENT Occasional Normal None Seen, Occasional , Few [facility] Comment on above: Performed By: #### L [id number] ####[facility] ([facility] [place] [address] RBC (#/HPF) IN URINE SEDIMENT >20 Abnormal None Seen, 0-2 [facility] Comment on above: Performed By: #### L [id number] ####[facility] ([facility])[address] [place] [address] SQUAMOUS EPITHELIAL CELLS (#/LPF) IN URINE SEDIMENT None Seen Normal None Seen, Occasional , Few [facility] Comment on above: Performed By: #### L [id number] ####[facility] ([facility])[address] [place] [address] WBC (LEUKOCYTE) (#/HPF) IN URINE SEDIMENT >50 Abnormal None Seen, 0-2 [facility] Comment on above: Performed By: #### L [id number] ####[facility] ([facility])[address] [place] [address] URINALYSIS WITH REFLEX CULTU REon 06-26-2024 BILIRUBIN, TOTAL PRESENCE IN URINE Negative Normal Negative [facility] Comment on above: Performed By: #### L [id number] ####[facility] ([facility])[address] [place] [address] Clarity (U) Cloudy Abnormal Clear [facility] Comment on above: Performed By: #### L [id number] ####[facility] ([facility])[address] [place] [address] Color (U) Dark-Yellow Abnormal Colorless, Yellow, Light-Otter Tail ow [facility] Comment on above: Performed By: #### L [id number] ####[facility] ([facility])[address] [place] [address] Glucose (U) [Mass/Vol] mg/dL Abnormal Normal [facility] Comment on above: Performed By: #### L [id number] ####[facility] ([facility])[address] [place] [address] HEMOGLOBIN PRESENCE IN URINE Large Abnormal Negative [facility] Comment on above: Performed By: #### L [id number] ####[facility] ([facility]ER)[address] [place] [address] Ketones Ql (U) Negative Normal Negative [facility] Comment on above: Performed By: #### L [id number] ####[facility] ([facility])[address] [place] [address] LEUKOCYTE ESTERASE PRESENCE IN URINE BY TEST STRIP Large Abnormal Negative [facility] Comment on above: Performed By: #### L [id number] ####[facility] ([facility])[address] [place] [address] NITRITE PRESENCE IN URINE Negative Normal Negative [facility] Comment on above: Performed By: #### L [id number] ####[facility] ([facility])[address] [place] [address] pH (U) 6.5 [pH] Normal 5.0-8.0 [facility] Comment on above: Performed By: #### L [id number] ####[facility] ([facility])[address] [place] [address] Protein (U) [Mass/Vol] 30 mg/dL Abnormal Negative [facility] Comment on above: Performed By: #### L [id number] ####[facility] ([facility])[address] [place] [address] Specific gravity (U) [Rel density] 1.023 Normal 1.010-1.03 0 [facility] Comment on above: Performed By: #### L [id number] ####[facility] ([facility])[address] [place] [address] UROBILINOGEN (MG/DL) IN URINE 4.0 mg/dL Abnormal Normal [facility] Comment on above: Performed By: #### L [id number] ####[facility] ([facility])[address] [place] [address] URINE CULTURE, ROUTINEon Bacteria identified Cx Nom (U) No growth at 48 hours Normal [facility] Comment on above: Performed By: #### L [id number] ####[facility] ([facility])[address] [place] [address] ANESon 06-19-2024 ANES Normal [facility] ANES Normal [facility] DEVICE CULTUREon 06-19-2024 Bacteria identified Cx Nom (Unsp spec) No growth at 3 days Normal [facility] Comment on above: Order Comment: Pre-o p diagnosis:Kidney stones [N20.0] Performed By: #### D EVICE CULTURE ####[facility] ([facility])[address] [place] [address] HISTOLOGY - TISSUE EXAMon LAB AP ADDENDUM 1 Normal [facility] Comment on above: Order Comment: Pre-o p diagnosis:Kidney stones [N20.0] Result Comment: 06-16: This case was sent to the Urolithiasis Laboratory in [place], [place] for chemical analysis (please see accompanying report). ? Please see results below:Urolithiasis Results:No nidus observed in the specimenThe stone is composed of:?? Calcium oxalate monohydrate:? 100%Addendum electronically signed by Katy Pierre MD on 07/04/2024 at 11:38 AM Performed By: #### L [id number] ####[facility] ([facility])[address] [email or web address] [address] LAB AP CASE REPORT Normal [facility] Comment on above: Order Comment: Pre-o p diagnosis:Kidney stones [N20.0] Result Comment: Surg ical Pathology Case: [id number] Provider: Tino Langston MD Collected: 06/19/2024 1004Ordering Location: [facility] Main Operating Room Received: 06/19/2024 1259Pathologist: JERONIMO Boydpecimen: Kidney, KIDNEY STONE FOR ANALYSIS Performed By: #### L [id number] ####[facility] ([facility])[address] [place] [address] LAB AP CLINICAL INFORMATION Normal [facility] Comment on above: Order Comment: Pre-o p diagnosis:Kidney stones [N20.0] Result Comment: Pre- op diagnosis:Kidney stones [N20.0] Performed By: #### L [id number] ####[facility] (BEAKER)[address] [place] [address] LAB AP GROSS DESCRIPTION A. Kidney. [facility] Comment on above: Order Comment: Pre-o p diagnosis:Kidney stones [N20.0] Result Comment: Part A is received fresh labeled Neptali Shiets and kidney stone for analysis . It consists of 2 irregular, wiggins-brown, firm calculi measuring 0.2 x 0.2 x 0.1 cm and 0.2 x 0.1 x 0.1 cm. The specimen is submitted to the Urolithiasis Lab in [place], [place] for chemical analysis.Carolina Adams, Pathologists' Tug Hand studentAyden Laswon, Pathologists' Tug Hand student Performed By: #### L [id number] ####[facility] ([facility])[address] [place] [address] LAB AP REPORT FINAL DIAGNOSIS NARRATIVE [facility] Comment on above: Order Comment: Pre-o p diagnosis:Kidney stones [N20.0] Result Comment: Shaekel montemayor, stone , removal: - Stone fragments for chemical analysis. Performed By: #### L [id number] ####[facility] ([facility])[address] [place] [address] HPon 06-19-2024 HP [facility] OPNOTEon 06-19-2024 OPNOTE [facility] POCT GLUCOSE METER UNSOLICIT ED RESULTSon 06-19-2024 Glucose [Mass/Vol] 84 mg/dL Normal 70-105 [facility] Comment on above: Order Comment: Waive d Testing in the ED is performed under the ED CLIA certificate #[id number]. Result Comment: [email or web address] Performed By: #### L [id number] ####[facility] ([facility])[address] [place] [address] Orders Onlyon 06-18-2024 Orders Only [facility] Orders Onlyon 06-17-2024 Orders Only [facility] Orders Onlyon 05-29-2024 Orders Only [facility] ANESon 05-21-2024 ANES [facility] ANES [facility] HPon 05-21-2024 HP [facility] NURSNOTEon 05-21-2024 DC Spoke with Mehdi from [employer], he stated it is not necessary to interrogate patients pacemaker. Pt is 100% paced and capture AV paced with no issues noted. Dr Ashley notified. 1245 cont with no problems. Stable for DC home. Normal [facility] OPNOTEon 05-21-2024 OPNOTE [facility] Orders Onlyon 05-21-2024 Orders Only [facility] POCT GLUCOSE METER UNSOLICIT ED RESULTSon 05-21-2024 Glucose [Mass/Vol] 90 mg/dL Normal 70-105 [facility] Comment on above: Order Comment: Waive d Testing in the ED is performed under the ED CLIA certificate #[id number]. Result Comment: ngro phong Performed By: #### L [id number] ####[facility] (BEAKER)[address] [place] [address] POCT PERFUSION PANEL UNSOLIC ITED RESULTSon 05-21-2024 CO2 [Moles/Vol] 27.0 mmol/L Normal 21.0-29.0 [facility] Comment on above: Performed By: #### L [id number] ####[facility] (BEAKER)[address] [place] [address] Glucose [Mass/Vol] 96 mg/dL Normal 70-105 [facility] Comment on above: Performed By: #### L [id number] ####[facility] (BEAKER)[address] [place] [address] HCO3 (Bld) [Moles/Vol] 25.5 mmol/L Normal 23.0-28.0 [facility] Comment on above: Performed By: #### L [id number] ####[facility] (BEAKER)[address] [place] [address] Hematocrit (Bld) [Volume fraction] 42 % Normal 38-51 [facility] Comment on above: Performed By: #### L [id number] ####[facility] ([facility])[address] [place] [address] Hemoglobin (Bld) [Mass/Vol] 14.3 g/dL Normal 12.0-17.0 [facility] Comment on above: Performed By: #### L [id number] ####[facility] ([facility])[address] [place] [address] POCT BASE EXCESS -1.0 mmol/L Normal -2.0-3.0 [facility] Comment on above: Performed By: #### L [id number] ####[facility] ([facility])[address] [address] POCT IONIZED CALCIUM 1.51 mmol/L High 1.12-1.32 [facility] Comment on above: Performed By: #### L [id number] ####[facility] ([facility])[address] [place] [address] POCT PCO2 47.1 mmHg Normal 41.0-51.0 [facility] Comment on above: Performed By: #### L [id number] ####[facility] ([facility])[address] [address] POCT PH 7.34 Normal 7.31-7.41 [facility] Comment on above: Performed By: #### L [id number] ####[facility] ([facility])[address] [address] POCT PO2 141 mmHg High 80-105 [facility] Comment on above: Performed By: #### L [id number] ####[facility] ([facility])[address] [address] POCT SO2 99 % High 95-98 [facility] Comment on above: Performed By: #### L [id number] ####[facility] ([facility] [address] Potassium [Moles/Vol] 3.0 mmol/L Low 3.5-4.9 [facility] Comment on above: Performed By: #### L [id number] ####[facility] ([facility])[address] [place] [address] Sodium [Moles/Vol] 142 mmol/L Normal 138.0-146 . 0 [facility] Comment on above: Performed By: #### L [id number] ####[facility] ([facility])[address] [place] [address] URINE CULTURE, STERILE COLLE CTIONon 05-21-2024 Bacteria identified Cx Nom (U) No growth at 48 hours Normal [facility] Comment on above: Order Comment: Pre-o p diagnosis:Staghorn calculus [N20.0] Performed By: #### L [id number] ####[facility] ([facility])[address] [place] [address] GRAM STAIN RESULT Normal [facility] Comment on above: Order Comment: Pre-o p diagnosis:Staghorn calculus [N20.0] Result Comment: No p olymorphonuclear leukocytes seenNo organisms seen Performed By: #### L [id number] ####[facility] ([facility])[address] [place] [address] Orders Onlyon 05-20-2024 Orders Only Normal [facility] Urine Cultureon 05-15-2024 Bacteria identified Cx Nom (U) No Growth 2 Days PERFORMED BY: [facility] [address] [place] [address] PATHOLOGIST BALE OPENER MARTINE BAIN M.D. Normal [facility] Comment on above: Performed By: #### C UU #### [facility] [address] [place] [address] [place] Orders Onlyon 05-10-2024 Orders Only Normal [facility] 37on 04-24-2024 37 Normal [facility] Orders Onlyon 04-24-2024 Orders Only Normal [facility] Follow-Upon 04-19-2024 Follow-Up Normal [facility] 36on 04-18-2024 36 Patrice, patient's son called back and said his BP now was 131/79. I advised him to continue to keep track of his father's BP trends, taking it 1-2 hours after medications. Asked him to make our office aware of any concerns. He verbalized understanding. [facility] 36 [facility] 36on 04-04-2024 36 Please let him know, labs look good. Okay to resume Farxiga and spironolactone half tablet daily. Thanks! [facility] 36on 04-03-2024 36 Okay to resume Metoprolol. Will await his lab results to see if okay to resume the rest. Please follow-up tomorrow to make sure labs were done today. Thank you! [facility] Telephoneon 04-03-2024 Telephone [facility] 37on 04-02-2024 37 *Replacing carvedilol with metoprolol succinate, 25mg, 1 tablet daily. *Prescription sent for an antibiotic, doxycycline 100mg. Take twice daily for 10 days. [facility] 30on 03-06-2024 30 [facility] 30 [facility] 30 [facility] BASIC METABOLIC PANELon 02-13 Anion gap [Moles/Vol] 7 mmol/L Normal 7-20 [facility] Comment on above: Performed By: #### L [id number] ####[facility] (BEAKER)[address] [place] [address] Calcium [Mass/Vol] 8.4 mg/dL Low 8.6-10.3 [facility] Comment on above: Performed By: #### L [id number] ####[facility] (BEAKER)[address] [place] [address] Chloride [Moles/Vol] 105 mmol/L Normal 98-107 [facility] Comment on above: Performed By: #### L [id number] ####[facility] (BEAKER)[address] [place] [address] CO2 [Moles/Vol] 32 mmol/L High 21-31 [facility] Comment on above: Performed By: #### L [id number] ####[facility] ([facility])[address] [place] [address] Creatinine [Mass/Vol] 0.95 mg/dL Normal 0.70-1.30 [facility] Comment on above: Performed By: #### L [id number] ####[facility] ([facility])[address] [place] [address] GLOMERULAR FILTRATION RATE ML/MIN/1.73 SQ M.PREDICTED 81.9 mL/min/1.73m*2 Normal >60.0 [facility] Comment on above: Result Comment: The [facility]???s estimated glomerular filtration rate (eGFR) will [...] of individuals. Performed By: #### L [id number] ####[facility] ([facility])[address] [place] [address] Glucose [Mass/Vol] 90 mg/dL Normal 70-100 [facility] Comment on above: Performed By: #### L [id number] ####[facility] ([facility])[address] [place] [address] Potassium [Moles/Vol] 3.8 mmol/L Normal 3.5-5.1 [facility] Comment on above: Performed By: #### L [id number] ####[facility] ([facility])[address] [place] [address] Sodium [Moles/Vol] 140 mmol/L Normal 136-145 [facility] Comment on above: Performed By: #### L [id number] ####[facility] (BEAKER)[address] [place] [address] Urea nitrogen [Mass/Vol] 21 mg/dL Normal 7-25 [facility] Comment on above: Performed By: #### L [id number] ####[facility] ([facility] [address] UREA NITROGEN/CREATININE (MASS RATIO) IN SER/PLAS 22.1 Normal [facility] Comment on above: Performed By: #### L [id number] ####[facility] [address] CBCon 03-06-2024 Erythrocyte distribution width (RBC) [Ratio] 13.3 % Normal 11.5-15.0 [facility] Comment on above: Performed By: #### L [id number] ####[facility] ([facility])[address] [address] ERYTHROCYTE MEAN CORPUSCULAR HEMOGLOBIN CONCENTRATION (G/DL) BY AUTOMATED 31.9 g/dL Low 32.0-35.0 [facility] Comment on above: Performed By: #### L [id number] ####[facility] ([facility])[address] [address] Hematocrit (Bld) [Volume fraction] 38.3 % Low 39.0-55.0 [facility] Comment on above: Performed By: #### L [id number] ####[facility] ([facility] [address] Hemoglobin (Bld) [Mass/Vol] 12.2 g/dL Low 13.0-17.0 [facility] Comment on above: Performed By: #### L [id number] ####[facility] ([facility] [address] MCH (RBC) [Entitic mass] 31.9 pg Normal 27.0-33.0 [facility] Comment on above: Performed By: #### L [id number] ####[facility] ([facility] [address] MCV (RBC) [Entitic vol] 100.3 fL High 82.0-98.0 [facility] Comment on above: Performed By: #### L [id number] ####[facility] ([facility])[address] [place] [address] PLATELETS (10*3/UL) IN BLOOD AUTOMATED COUNT 196 10*3/uL Normal 150-400 [facility] Comment on above: Performed By: #### L [id number] ####[facility] ([facility])[address] [place] [address] RBC (Bld) [#/Vol] 3.82 10*6/uL Low 4.20-5.70 [facility] Comment on above: Performed By: #### L [id number] ####[facility] ([facility])[address] [place] [address] WBC (Bld) [#/Vol] 7.67 10*3/uL Normal 4.00-10.60 [facility] Comment on above: Performed By: #### L [id number] ####[facility] ([facility])[address] [place] [address] CONSULTon 03-06-2024 CONSULT Normal [facility] DSon 03-06-2024 DS Normal [facility] NURSNOTEon 03-06-2024 NURSNOTE This RN called and gave report to Receiving nurse at [place]. Nurse denied further questions. Report given to Transport bedside. Transport has discharge packet. Normal [facility] PRO-BNPon 03-06-2024 Natriuretic peptide B (Bld) [Mass/Vol] 800 pg/mL High 0-300 [facility] Comment on above: Result Comment: An a ge-independent cutoff point of 300 pg/ml has a 98% negative predictive value excluding acute heart failure.Test Performed by [employer] [address] [place] [address] - Released 03/06/2024 15:37 Performed By: #### L [id number] ####[employer] [id number] [place] [address] 30on 03-05-2024 30 Normal [facility] 30 Normal [facility] 30 Normal [facility] BASIC METABOLIC PANELon 02-13 Anion gap [Moles/Vol] 9 mmol/L Normal 7-20 [facility] Comment on above: Performed By: #### L [id number] ####[facility] ([facility])[address] [place] [address] Calcium [Mass/Vol] 8.4 mg/dL Low 8.6-10.3 [facility] Comment on above: Performed By: #### L [id number] ####[facility] ([facility])[address] [place] [address] Chloride [Moles/Vol] 104 mmol/L Normal 98-107 [facility] Comment on above: Performed By: #### L [id number] ####[facility] ([facility])[address] [place] [address] CO2 [Moles/Vol] 33 mmol/L High 21-31 [facility] Comment on above: Performed By: #### L [id number] ####[facility] ([facility])[address] [place] [address] Creatinine [Mass/Vol] 1.02 mg/dL Normal 0.70-1.30 [facility] Comment on above: Performed By: #### L [id number] ####[facility] ([facility])[address] [place] [address] GLOMERULAR FILTRATION RATE ML/MIN/1.73 SQ M.PREDICTED 75.2 mL/min/1.73m*2 Normal >60.0 [facility] Comment on above: Result Comment: The [facility]???s estimated glomerular filtration rate (eGFR) will [...] of individuals. Performed By: #### L [id number] ####[facility] ([facility])[address] [place] [address] Glucose [Mass/Vol] 88 mg/dL Normal 70-100 [facility] Comment on above: Performed By: #### L [id number] ####[facility] ([facility])[address] [place] [address] Potassium [Moles/Vol] 3.8 mmol/L Normal 3.5-5.1 [facility] Comment on above: Performed By: #### L [id number] ####[facility] ([facility])[address] [place] [address] Sodium [Moles/Vol] 142 mmol/L Normal 136-145 [facility] Comment on above: Performed By: #### L [id number] ####[facility] ([facility])[address] [place] [address] Urea nitrogen [Mass/Vol] 25 mg/dL Normal 7-25 [facility] Comment on above: Performed By: #### L [id number] ####[facility] ([facility])[address] [place] [address] UREA NITROGEN/CREATININE (MASS RATIO) IN SER/PLAS 24.5 Normal [facility] Comment on above: Performed By: #### L [id number] ####[facility] ([facility])[address] [place] [address] CBC WITH AUTO DIFFERENTIALon 03-05-2024 Basophils (Bld) [#/Vol] 0.01 10*3/uL Normal 0.00-0.20 [facility] Comment on above: Performed By: #### L [id number] ####[facility] ([facility])[address] [place] [address] Basophils/100 WBC (Bld) 0.1 % Normal 0.0-1.0 [facility] Comment on above: Performed By: #### L [id number] ####[facility] (BEAKER)[address] [place] [address] Eosinophils (Bld) [#/Vol] 0.08 10*3/uL Normal 0.00-0.5 0 [facility] Comment on above: Performed By: #### L [id number] ####[facility] (BEAKER)[address] [place] [address] Eosinophils/100 WBC (Bld) 1.0 % Normal 0.0-6.0 [facility] Comment on above: Performed By: #### L [id number] ####[facility] [place] [address] Erythrocyte distribution width (RBC) [Ratio] 13.2 % Normal 11.5-15.0 [facility] Comment on above: Performed By: #### L [id number] ####[facility] ([facility] [place] [address] ERYTHROCYTE MEAN CORPUSCULAR HEMOGLOBIN CONCENTRATION (G/DL) BY AUTOMATED 32.3 g/dL Normal 32.0-35.0 [facility] Comment on above: Performed By: #### L [id number] ####[facility] (BEAKER)[address] [place] [address] Hematocrit (Bld) [Volume fraction] 37.5 % Low 39.0-55.0 [facility] Comment on above: Performed By: #### L [id number] ####[facility] (BEAKER)[address] [place] [address] Hemoglobin (Bld) [Mass/Vol] 12.1 g/dL Low 13.0-17.0 [facility] Comment on above: Performed By: #### L [id number] ####[facility] (BEAKER)[address] [place] [address] Immature granulocytes (Bld) [#/Vol] 0.09 10*3/uL Normal 0.00-0.20 [facility] Comment on above: Performed By: #### L [id number] ####[facility] ([facility])[address] [place] [address] Immature granulocytes/100 WBC (Bld) 1.1 % High 0.0-1.0 [facility] Comment on above: Performed By: #### L [id number] ####[facility] ([facility])[address] [place] [address] Lymphocytes (Bld) [#/Vol] 1.27 10*3/uL Normal 1.20-4.0 0 [facility] Comment on above: Performed By: #### L [id number] ####[facility] ([facility])[address] [place] [address] Lymphocytes/100 WBC (Bld) 15.4 % Low 20.0-45.0 [facility] Comment on above: Performed By: #### L [id number] ####[facility] ([facility])[address] [place] [address] MCH (RBC) [Entitic mass] 31.6 pg Normal 27.0-33.0 [facility] Comment on above: Performed By: #### L [id number] ####[facility] ([facility])[address] [place] [address] MCV (RBC) [Entitic vol] 97.9 fL Normal 82.0-98.0 [facility] Comment on above: Performed By: #### L [id number] ####[facility] ([facility])[address] [facility] [place] [address] Monocytes (Bld) [#/Vol] 0.65 10*3/uL Normal 0.10-1.00 [facility] Comment on above: Performed By: #### L [id number] ####[facility] [place] [address] Monocytes/100 WBC (Bld) 7.9 % Normal 5.0-12.0 [facility] Comment on above: Performed By: #### L [id number] ####[facility] [address] Neutrophils (Bld) [#/Vol] 6.14 10*3/uL Normal 1.60-7.6 0 [facility] Comment on above: Performed By: #### L [id number] ####[facility] [address] Neutrophils/100 WBC (Bld) 74.5 % High 40.0-72.0 [facility] Comment on above: Performed By: #### L [id number] ####[facility] ([facility])[address] [address] NRBC (PER 100 WBCS) BY AUTOMATED COUNT 0.0 % Normal 0 [facility] Comment on above: Performed By: #### L [id number] ####[facility] ([facility])[address] [place] [address] PLATELETS (10*3/UL) IN BLOOD AUTOMATED COUNT 190 10*3/uL Normal 150-400 [facility] Comment on above: Performed By: #### L [id number] ####[facility] ([facility])[address] [address] RBC (Bld) [#/Vol] 3.83 10*6/uL Low 4.20-5.70 [facility] Comment on above: Performed By: #### L [id number] ####[facility] ([facility])[address] [address] WBC (Bld) [#/Vol] 8.24 10*3/uL Normal 4.00-10.60 [facility] Comment on above: Performed By: #### L [id number] ####[facility] ([facility])[address] [place] [address] MAGNESIUMon 03-05-2024 Magnesium [Mass/Vol] 1.8 mg/dL Low 1.9-2.7 [facility] Comment on above: Performed By: #### L [id number] ####[facility] ([facility])[address] [place] [address] PHOSPHORUSon 03-05-2024 Magnesium [Mass/Vol] 3.8 mg/dL Normal 2.5-5.0 [facility] Comment on above: Performed By: #### L [id number] ####[facility] ([facility])[address] [place] [address] 30on 03-04-2024 30 Normal [facility] 30 The patient is Moderately Stable - Low risk of patient condition declining or worsening The patient's goals for the shift include Rest The clinical goals for the shift include VSS, safety, rest Normal [facility] ANESon 03-04-2024 ANES Normal [facility] APTTon 03-04-2024 ACTIVATED PARTIAL THROMBOPLASTIN TIME IN PPP BY COAGULATION ASSAY 110.7 Seconds High 25.0-35.0 [facility] Comment on above: Result Comment: Clin ical significance of the APTT is questionable in the presence of heparin. Performed By: #### L [id number] ####[facility] ([facility])[address] [facility] [address] ACTIVATED PARTIAL THROMBOPLASTIN TIME IN PPP BY COAGULATION ASSAY 135.9 Seconds Critically high 25.0-35.0 [facility] Comment on above: Result Comment: Clin ical significance of the APTT is questionable in the presence of heparin. Performed By: #### L [id number] ####[facility] ([facility])[address] [place] [address] B-TYPE NATRIURETIC PEPTIDEon 03-04-2024 Natriuretic peptide B (Bld) [Mass/Vol] 178 pg/mL High 0-100 [facility] Comment on above: Performed By: #### L [id number] ####[facility] ([facility])[address] [place] [address] BASIC METABOLIC PANELon 02-13 Anion gap [Moles/Vol] 11 mmol/L Normal 7-20 [facility] Comment on above: Performed By: #### L [id number] ####[facility] ([facility])[address] [place] [address] Calcium [Mass/Vol] 8.5 mg/dL Low 8.6-10.3 [facility] Comment on above: Performed By: #### L [id number] ####[facility] ([facility])[address] [place] [address] Chloride [Moles/Vol] 104 mmol/L Normal 98-107 [facility] Comment on above: Performed By: #### L [id number] ####[facility] ([facility])[address] [place] [address] CO2 [Moles/Vol] 29 mmol/L Normal 21-31 [facility] Comment on above: Performed By: #### L [id number] ####[facility] ([facility])[address] [place] [address] Creatinine [Mass/Vol] 0.94 mg/dL Normal 0.70-1.30 [facility] Comment on above: Performed By: #### L [id number] ####[facility] ([facility])[address] [place] [address] GLOMERULAR FILTRATION RATE ML/MIN/1.73 SQ M.PREDICTED 83.0 mL/min/1.73m*2 Normal >60.0 [facility] Comment on above: Result Comment: The [facility]???s estimated glomerular filtration rate (eGFR) will [...] of individuals. Performed By: #### L [id number] ####[facility] ([facility])[address] [place] [address] Glucose [Mass/Vol] 108 mg/dL High 70-100 [facility] Comment on above: Performed By: #### L [id number] ####[facility] ([facility] [place] [address] Potassium [Moles/Vol] 3.8 mmol/L Normal 3.5-5.1 [facility] Comment on above: Performed By: #### L [id number] ####[facility] ([facility])[address] [place] [address] Sodium [Moles/Vol] 140 mmol/L Normal 136-145 [facility] Comment on above: Performed By: #### L [id number] ####[facility] ([facility])[address] [place] [address] Urea nitrogen [Mass/Vol] 29 mg/dL High 7-25 [facility] Comment on above: Performed By: #### L [id number] ####[facility] ([facility])[address] [place] [address] UREA NITROGEN/CREATININE (MASS RATIO) IN SER/PLAS 30.9 Normal [facility] Comment on above: Performed By: #### L [id number] ####[facility] ([facility])[address] [place] [address] CBC WITH AUTO DIFFERENTIALon 03-04-2024 Basophils (Bld) [#/Vol] 0.02 10*3/uL Normal 0.00-0.20 [facility] Comment on above: Performed By: #### L [id number] ####[facility] ([facility])[address] [place] [address] Basophils/100 WBC (Bld) 0.2 % Normal 0.0-1.0 [facility] Comment on above: Performed By: #### L [id number] ####[facility] ([facility])[address] [place] [address] Eosinophils (Bld) [#/Vol] 0.00 10*3/uL Normal 0.00-0.5 0 [facility] Comment on above: Performed By: #### L [id number] ####[facility] ([facility])[address] [place] [address] Eosinophils/100 WBC (Bld) 0.0 % Normal 0.0-6.0 [facility] Comment on above: Performed By: #### L [id number] ####[facility] ([facility])[address] [place] [address] Erythrocyte distribution width (RBC) [Ratio] 13.2 % Normal 11.5-15.0 [facility] Comment on above: Performed By: #### L [id number] ####[facility] ([facility])[address] [place] [address] ERYTHROCYTE MEAN CORPUSCULAR HEMOGLOBIN CONCENTRATION (G/DL) BY AUTOMATED 31.5 g/dL Low 32.0-35.0 [facility] Comment on above: Performed By: #### L [id number] ####[facility] ([facility])[address] [place] [address] Hematocrit (Bld) [Volume fraction] 38.7 % Low 39.0-55.0 [facility] Comment on above: Performed By: #### L [id number] ####[facility] ([facility])[address] [place] [address] Hemoglobin (Bld) [Mass/Vol] 12.2 g/dL Low 13.0-17.0 [facility] Comment on above: Performed By: #### L [id number] ####[facility] ([facility])[address] [place] [address] Immature granulocytes (Bld) [#/Vol] 0.12 10*3/uL Normal 0.00-0.20 [facility] Comment on above: Performed By: #### L [id number] ####[facility] ([facility])[address] [place] [address] Immature granulocytes/100 WBC (Bld) 1.2 % High 0.0-1.0 [facility] Comment on above: Performed By: #### L [id number] ####[facility] ([facility])[address] [place] [address] Lymphocytes (Bld) [#/Vol] 1.13 10*3/uL Low 1.20-4.0 0 [facility] Comment on above: Performed By: #### L [id number] ####[facility] ([facility])[address] [place] [address] Lymphocytes/100 WBC (Bld) 11.3 % Low 20.0-45.0 [facility] Comment on above: Performed By: #### L [id number] ####[facility] ([facility])[address] [place] [address] MCH (RBC) [Entitic mass] 31.7 pg Normal 27.0-33.0 [facility] Comment on above: Performed By: #### L [id number] ####[facility] ([facility])[address] [place] [address] MCV (RBC) [Entitic vol] 100.5 fL High 82.0-98.0 [facility] Comment on above: Performed By: #### L [id number] ####[facility] ([facility])[address] [place] [address] Monocytes (Bld) [#/Vol] 0.87 10*3/uL Normal 0.10-1.00 [facility] Comment on above: Performed By: #### L [id number] ####[facility] ([facility])[address] [place] [address] Monocytes/100 WBC (Bld) 8.7 % Normal 5.0-12.0 [facility] Comment on above: Performed By: #### L [id number] ####[facility] ([facility])[address] [place] [address] Neutrophils (Bld) [#/Vol] 7.88 10*3/uL High 1.60-7.6 0 [facility] Comment on above: Performed By: #### L [id number] ####[facility] ([facility])[address] [place] [address] Neutrophils/100 WBC (Bld) 78.6 % High 40.0-72.0 [facility] Comment on above: Performed By: #### L [id number] ####[facility] ([facility])[address] [place] [address] NRBC (PER 100 WBCS) BY AUTOMATED COUNT 0.0 % Normal 0 [facility] Comment on above: Performed By: #### L [id number] ####[facility] ([facility])[address] [place] [address] PLATELETS (10*3/UL) IN BLOOD AUTOMATED COUNT 182 10*3/uL Normal 150-400 [facility] Comment on above: Performed By: #### L [id number] ####[facility] ([facility])[address] [place] [address] RBC (Bld) [#/Vol] 3.85 10*6/uL Low 4.20-5.70 [facility] Comment on above: Performed By: #### L [id number] ####[facility] ([facility])[address] [place] [address] WBC (Bld) [#/Vol] 10.02 10*3/uL Normal 4.00-10.60 [facility] Comment on above: Performed By: #### L [id number] ####[facility] ([facility])[address] [place] [address] CONSULTon 03-04-2024 CONSULT Normal [facility] HPon 03-04-2024 HP Normal [facility] MAGNESIUMon 03-04-2024 Magnesium [Mass/Vol] 1.8 mg/dL Low 1.9-2.7 [facility] Comment on above: Performed By: #### L [id number] ####[facility] ([facility])[address] [place] [address] PHOSPHORUSon 03-04-2024 Magnesium [Mass/Vol] 3.1 mg/dL Normal 2.5-5.0 [facility] Comment on above: Performed By: #### L [id number] ####[facility] ([facility])[address] [place] [address] 30on 03-03-2024 30 Normal [facility] 30 Normal [facility] 30 Normal [facility] 30 Normal [facility] APTTon 03-03-2024 ACTIVATED PARTIAL THROMBOPLASTIN TIME IN PPP BY COAGULATION ASSAY 147.8 Seconds Critically high 25.0-35.0 [facility] Comment on above: Result Comment: Clin ical significance of the APTT is questionable in the presence of heparin. Performed By: #### L [id number] ####[facility] ([facility])[address] [place] [address] ACTIVATED PARTIAL THROMBOPLASTIN TIME IN PPP BY COAGULATION ASSAY 124.5 Seconds High 25.0-35.0 [facility] Comment on above: Result Comment: Clin ical significance of the APTT is questionable in the presence of heparin. Performed By: #### L [id number] ####[facility] ([facility])[address] [place] [address] ACTIVATED PARTIAL THROMBOPLASTIN TIME IN PPP BY COAGULATION ASSAY 169.5 Seconds Critically high 25.0-35.0 [facility] Comment on above: Order Comment: Check aPTT every 6 hours while on heparin infusion, or per protocol. Result Comment: Clin ical significance of the APTT is questionable in the presence of heparin. Performed By: #### L [id number] ####[facility] ([facility])[address] [place] [address] BASIC METABOLIC PANELon 02-13 Anion gap [Moles/Vol] 9 mmol/L Normal 7-20 [facility] Comment on above: Performed By: #### L [id number] ####[facility] ([facility])[address] [place] [address] Calcium [Mass/Vol] 8.2 mg/dL Low 8.6-10.3 [facility] Comment on above: Performed By: #### L [id number] ####[facility] ([facility])[address] [place] [address] Chloride [Moles/Vol] 103 mmol/L Normal 98-107 [facility] Comment on above: Performed By: #### L [id number] ####[facility] ([facility])[address] [facility] [place] [address] CO2 [Moles/Vol] 32 mmol/L High 21-31 [facility] Comment on above: Performed By: #### L [id number] ####[facility] ([facility])[address] [place] [address] Creatinine [Mass/Vol] 0.93 mg/dL Normal 0.70-1.30 [facility] Comment on above: Performed By: #### L [id number] ####[facility] ([facility])[address] [place] [address] GLOMERULAR FILTRATION RATE ML/MIN/1.73 SQ M.PREDICTED 84.0 mL/min/1.73m*2 Normal >60.0 [facility] Comment on above: Result Comment: The [facility]???s estimated glomerular filtration rate (eGFR) will [...] of individuals. Performed By: #### L [id number] ####[facility] ([facility])[address] [place] [address] Glucose [Mass/Vol] 110 mg/dL High 70-100 [facility] Comment on above: Performed By: #### L [id number] ####[facility] ([facility])[address] [place] [address] Potassium [Moles/Vol] 3.3 mmol/L Low 3.5-5.1 [facility] Comment on above: Performed By: #### L [id number] ####[facility] ([facility])[address] [place] [address] Sodium [Moles/Vol] 141 mmol/L Normal 136-145 [facility] Comment on above: Performed By: #### L [id number] ####[facility] ([facility])[address] [place] [address] Urea nitrogen [Mass/Vol] 27 mg/dL High 7-25 [facility] Comment on above: Performed By: #### L [id number] ####[facility] ([facility])[address] [place] [address] UREA NITROGEN/CREATININE (MASS RATIO) IN SER/PLAS 29.0 Normal [facility] Comment on above: Performed By: #### L [id number] ####[facility] ([facility])[address] [place] [address] CBC WITH AUTO DIFFERENTIALon 03-03-2024 Basophils (Bld) [#/Vol] 0.01 10*3/uL Normal 0.00-0.20 [facility] Comment on above: Performed By: #### L [id number] ####[facility] ([facility])[address] [place] [address] Basophils/100 WBC (Bld) 0.1 % Normal 0.0-1.0 [facility] Comment on above: Performed By: #### L [id number] ####[facility] ([facility])[address] [place], [place] [address] Eosinophils (Bld) [#/Vol] 0.00 10*3/uL Normal 0.00-0.5 0 [facility] Comment on above: Performed By: #### L [id number] ####[facility] ([facility])[address] [place] [address] Eosinophils/100 WBC (Bld) 0.0 % Normal 0.0-6.0 [facility] Comment on above: Performed By: #### L [id number] ####[facility] ([facility])[address] [place] [address] Erythrocyte distribution width (RBC) [Ratio] 13.2 % Normal 11.5-15.0 [facility] Comment on above: Performed By: #### L [id number] ####[facility] ([facility])[address] [place] [address] ERYTHROCYTE MEAN CORPUSCULAR HEMOGLOBIN CONCENTRATION (G/DL) BY AUTOMATED 32.1 g/dL Normal 32.0-35.0 [facility] Comment on above: Performed By: #### L [id number] ####[facility] ([facility])[address] [place] [address] Hematocrit (Bld) [Volume fraction] 38.0 % Low 39.0-55.0 [facility] Comment on above: Performed By: #### L [id number] ####[facility] ([facility])[address] [place] [address] Hemoglobin (Bld) [Mass/Vol] 12.2 g/dL Low 13.0-17.0 [facility] Comment on above: Performed By: #### L [id number] ####[facility] ([facility])[address] [place] [address] Immature granulocytes (Bld) [#/Vol] 0.07 10*3/uL Normal 0.00-0.20 [facility] Comment on above: Performed By: #### L [id number] ####[facility] ([facility])[address] [place] [address] Immature granulocytes/100 WBC (Bld) 0.7 % Normal 0.0-1.0 [facility] Comment on above: Performed By: #### L [id number] ####[facility] ([facility])[address] [place], [place] [address] Lymphocytes (Bld) [#/Vol] 1.03 10*3/uL Low 1.20-4.0 0 [facility] Comment on above: Performed By: #### L [id number] ####[facility] ([facility])[address] [place] [address] Lymphocytes/100 WBC (Bld) 10.2 % Low 20.0-45.0 [facility] Comment on above: Performed By: #### L [id number] ####[facility] ([facility] [place] [address] MCH (RBC) [Entitic mass] 31.4 pg Normal 27.0-33.0 [facility] Comment on above: Performed By: #### L [id number] ####[facility] ([facility])[address] [place] [address] MCV (RBC) [Entitic vol] 97.7 fL Normal 82.0-98.0 [facility] Comment on above: Performed By: #### L [id number] ####[facility] ([facility])[address] [place], [place] [address] Monocytes (Bld) [#/Vol] 1.01 10*3/uL High 0.10-1.00 [facility] Comment on above: Performed By: #### L [id number] ####[facility] ([facility])[address] [place] [address] Monocytes/100 WBC (Bld) 10.0 % Normal 5.0-12.0 [facility] Comment on above: Performed By: #### L [id number] ####[facility] ([facility])[address] [place] [address] Neutrophils (Bld) [#/Vol] 8.01 10*3/uL High 1.60-7.6 0 [facility] Comment on above: Performed By: #### L [id number] ####[facility] ([facility])[address] [place] [address] Neutrophils/100 WBC (Bld) 79.0 % High 40.0-72.0 [facility] Comment on above: Performed By: #### L [id number] ####[facility] ([facility])[address] [place] [address] NRBC (PER 100 WBCS) BY AUTOMATED COUNT 0.0 % Normal 0 [facility] Comment on above: Performed By: #### L [id number] ####[facility] ([facility])[address] [place] [address] PLATELETS (10*3/UL) IN BLOOD AUTOMATED COUNT 164 10*3/uL Normal 150-400 [facility] Comment on above: Performed By: #### L [id number] ####[facility] ([facility])[address] [place] [address] RBC (Bld) [#/Vol] 3.89 10*6/uL Low 4.20-5.70 [facility] Comment on above: Performed By: #### L [id number] ####[facility] ([facility])[address] [facility] [address] WBC (Bld) [#/Vol] 10.13 10*3/uL Normal 4.00-10.60 [facility] Comment on above: Performed By: #### L [id number] ####[facility] ([facility])[address] [place] [address] CLOSTRIDIOIDES DIFFICILE DNA AMPLIFICATIONon 03-03-2024 CLOSTRIDIOIDES DIFFICILE (TOXIN A/B) Negative Normal Negative [facility] Comment on above: Order Comment: Testi [...] suspected of having Clostridioides difficile-infection (CDI). The Merna C. difficile Assay is intended for use as an aid in diagnosis of CDI. The assay utilizes helicase-dependent amplification (HDA) for the amplification of a highly conserved fragment of the Toxin A gene sequence. Performed By: #### L [id number] ####[facility] ([facility])[address] [place] [address] MAGNESIUMon 03-03-2024 Magnesium [Mass/Vol] 1.9 mg/dL Normal 1.9-2.7 [facility] Comment on above: Performed By: #### L [id number] ####[facility] ([facility])[address] [place] [address] NURSNOTEon 03-03-2024 NURSNOTE Normal [facility] NURSNOTE Normal [facility] PHOSPHORUSon 03-03-2024 Magnesium [Mass/Vol] 2.7 mg/dL Normal 2.5-5.0 [facility] Comment on above: Performed By: #### L [id number] ####[facility] ([facility])[address] [place] [address] 30on 03-02-2024 30 The patient is Moderately Stable - Low risk of patient condition declining or worsening The patient's goals for the shift include Comfort The clinical goals for the shift include VSS, safety Normal [facility] APTTon 03-02-2024 ACTIVATED PARTIAL THROMBOPLASTIN TIME IN PPP BY COAGULATION ASSAY 127.4 Seconds High 25.0-35.0 [facility] Comment on above: Order Comment: Check aPTT every 6 hours while on heparin infusion, or per protocol. Result Comment: Clin ical significance of the APTT is questionable in the presence of heparin. Performed By: #### L [id number] ####[facility] ([facility])[address] [place] [address] ACTIVATED PARTIAL THROMBOPLASTIN TIME IN PPP BY COAGULATION ASSAY 106.1 Seconds High 25.0-35.0 [facility] Comment on above: Order Comment: Check aPTT every 6 hours while on heparin infusion, or per protocol. Result Comment: Clin ical significance of the APTT is questionable in the presence of heparin. Performed By: #### L [id number] ####[facility] ([facility])[address] [place] [address] BASIC METABOLIC PANELon 02-12 Anion gap [Moles/Vol] 10 mmol/L Normal 7-20 [facility] Comment on above: Performed By: #### L [id number] ####[facility] ([facility])[address] [place] [address] Calcium [Mass/Vol] 8.1 mg/dL Low 8.6-10.3 [facility] Comment on above: Performed By: #### L [id number] ####[facility] ([facility])[address] [place] [address] Chloride [Moles/Vol] 104 mmol/L Normal 98-107 [facility] Comment on above: Performed By: #### L [id number] ####[facility] ([facility])[address] [place] [address] CO2 [Moles/Vol] 30 mmol/L Normal 21-31 [facility] Comment on above: Performed By: #### L [id number] ####[facility] ([facility])[address] [facility] [address] Creatinine [Mass/Vol] 0.97 mg/dL Normal 0.70-1.30 [facility] Comment on above: Performed By: #### L [id number] ####[facility] ([facility])[address] [place] [address] GLOMERULAR FILTRATION RATE ML/MIN/1.73 SQ M.PREDICTED 79.9 mL/min/1.73m*2 Normal >60.0 [facility] Comment on above: Result Comment: The [facility]???s estimated glomerular filtration rate (eGFR) will [...] of individuals. Performed By: #### L [id number] ####[facility] ([facility])[address] [place] [address] Glucose [Mass/Vol] 136 mg/dL High 70-100 [facility] Comment on above: Performed By: #### L [id number] ####[facility] ([facility])[address] [place] [address] Potassium [Moles/Vol] 3.0 mmol/L Low 3.5-5.1 [facility] Comment on above: Performed By: #### L [id number] ####[facility] ([facility])[address] [place] [address] Sodium [Moles/Vol] 141 mmol/L Normal 136-145 [facility] Comment on above: Performed By: #### L [id number] ####[facility] ([facility])[address] [place] [address] Urea nitrogen [Mass/Vol] 37 mg/dL High 7-25 [facility] Comment on above: Performed By: #### L [id number] ####[facility] ([facility])[address] [place] [address] UREA NITROGEN/CREATININE (MASS RATIO) IN SER/PLAS 38.1 Normal [facility] Comment on above: Performed By: #### L [id number] ####[facility] ([facility])[address] [place] [address] CBC WITH AUTO DIFFERENTIALon 03-02-2024 Basophils (Bld) [#/Vol] 0.01 10*3/uL Normal 0.00-0.20 [facility] Comment on above: Performed By: #### L [id number] ####[facility] ([facility])[address] [place] [address] Basophils/100 WBC (Bld) 0.1 % Normal 0.0-1.0 [facility] Comment on above: Performed By: #### L [id number] ####[facility] ([facility])[address] [place] [address] Eosinophils (Bld) [#/Vol] 0.00 10*3/uL Normal 0.00-0.5 0 [facility] Comment on above: Performed By: #### L [id number] ####[facility] ([facility])[address] [place] [address] Eosinophils/100 WBC (Bld) 0.0 % Normal 0.0-6.0 [facility] Comment on above: Performed By: #### L [id number] ####[facility] [place] [address] Erythrocyte distribution width (RBC) [Ratio] 12.9 % Normal 11.5-15.0 [facility] Comment on above: Performed By: #### L [id number] ####[facility] ([facility])[address] [place] [address] ERYTHROCYTE MEAN CORPUSCULAR HEMOGLOBIN CONCENTRATION (G/DL) BY AUTOMATED 32.3 g/dL Normal 32.0-35.0 [facility] Comment on above: Performed By: #### L [id number] ####[facility] ([facility] [place] [address] Hematocrit (Bld) [Volume fraction] 36.8 % Low 39.0-55.0 [facility] Comment on above: Performed By: #### L [id number] ####[facility] ([facility])[address] [place] [address] Hemoglobin (Bld) [Mass/Vol] 11.9 g/dL Low 13.0-17.0 [facility] Comment on above: Performed By: #### L [id number] ####[facility] ([facility])[address] [place] [address] Immature granulocytes (Bld) [#/Vol] 0.05 10*3/uL Normal 0.00-0.20 [facility] Comment on above: Performed By: #### L [id number] ####[facility] ([facility])[address] [place] [address] Immature granulocytes/100 WBC (Bld) 0.7 % Normal 0.0-1.0 [facility] Comment on above: Performed By: #### L [id number] ####[facility] ([facility] [place] [address] Lymphocytes (Bld) [#/Vol] 0.58 10*3/uL Low 1.20-4.0 0 [facility] Comment on above: Performed By: #### L [id number] ####[facility] ([facility])[address] [place] [address] Lymphocytes/100 WBC (Bld) 7.8 % Low 20.0-45.0 [facility] Comment on above: Performed By: #### L [id number] ####[facility] ([facility])[address] [place] [address] MCH (RBC) [Entitic mass] 32.1 pg Normal 27.0-33.0 [facility] Comment on above: Performed By: #### L [id number] ####[facility] ([facility])[address] [place] [address] MCV (RBC) [Entitic vol] 99.2 fL High 82.0-98.0 [facility] Comment on above: Performed By: #### L [id number] ####[facility] ([facility])[address] [place] [address] Monocytes (Bld) [#/Vol] 0.56 10*3/uL Normal 0.10-1.00 [facility] Comment on above: Performed By: #### L [id number] ####[facility] ([facility])[address] [place] [address] Monocytes/100 WBC (Bld) 7.5 % Normal 5.0-12.0 [facility] Comment on above: Performed By: #### L [id number] ####[facility] ([facility] [place] [address] Neutrophils (Bld) [#/Vol] 6.28 10*3/uL Normal 1.60-7.6 0 [facility] Comment on above: Performed By: #### L [id number] ####[facility] ([facility])[address] [place] [address] Neutrophils/100 WBC (Bld) 83.9 % High 40.0-72.0 [facility] Comment on above: Performed By: #### L [id number] ####[facility] ([facility])[address] [place] [address] NRBC (PER 100 WBCS) BY AUTOMATED COUNT 0.0 % Normal 0 [facility] Comment on above: Performed By: #### L [id number] ####[facility] ([facility])[address] [place] [address] PLATELETS (10*3/UL) IN BLOOD AUTOMATED COUNT 159 10*3/uL Normal 150-400 [facility] Comment on above: Performed By: #### L [id number] ####[facility] ([facility])[address] [place] [address] RBC (Bld) [#/Vol] 3.71 10*6/uL Low 4.20-5.70 [facility] Comment on above: Performed By: #### L [id number] ####[facility] ([facility])[address] [place] [address] WBC (Bld) [#/Vol] 7.48 10*3/uL Normal 4.00-10.60 [facility] Comment on above: Performed By: #### L [id number] ####[facility] ([facility])[address] [place] [address] MAGNESIUMon 03-02-2024 Magnesium [Mass/Vol] 1.9 mg/dL Normal 1.9-2.7 [facility] Comment on above: Performed By: #### L [id number] ####[facility] ([facility])[address] [place] [address] NURSNOTEon 03-02-2024 NURSNOTE Normal [facility] PHOSPHORUSon 03-02-2024 Magnesium [Mass/Vol] 3.4 mg/dL Normal 2.5-5.0 [facility] Comment on above: Performed By: #### L [id number] ####[facility] ([facility])[address] [place] [address] VENOUS BLOOD GAS WITH IONIZE D CALCIUMon 03-02-2024 Base excess Calc (BldV) [Moles/Vol] 4.3 mmol/L Normal [facility] Comment on above: Performed By: #### L [id number] ####[facility] [id number] [place] [address] [facility] CALCIUM IONIZED (MMOL/L) IN BLOOD 1.19 mmol/L Normal 1.15-1.33 [facility] Comment on above: Performed By: #### L [id number] ####[facility] [id number] [place] [address] [facility] CO2 (BldV) [Partial pressure] 47 mm[Hg] Normal 40-50 [facility] Comment on above: Performed By: #### L [id number] ####[facility] [id number] [place] [address] [facility] HCO3 (Bld) [Moles/Vol] 29.8 mmol/L Normal [facility] Comment on above: Performed By: #### L [id number] ####[facility] [id number] [place] [address] [facility] Oxygen (BldV) [Partial pressure] 46 mm[Hg] High 35-45 [facility] Comment on above: Performed By: #### L [id number] ####[facility] [id number] [place] [address] [facility] OXYGEN SATURATION (%) IN VENOUS BLOOD 76.1 % High 65.0-75.0 [facility] Comment on above: Performed By: #### L [id number] ####[facility] [id number] [place] [address] [facility] PH OF VENOUS BLOOD 7.41 Normal 7.31-7.41 [facility] Comment on above: Performed By: #### L [id number] ####[facility] [id number] [place] [address] [place] 30on 03-01-2024 30 Normal [facility] BASIC METABOLIC PANELon 02-12 Anion gap [Moles/Vol] 10 mmol/L Normal 7-20 [facility] Comment on above: Performed By: #### L [id number] ####[facility] ([facility])[address] [place] [address] Calcium [Mass/Vol] 8.3 mg/dL Low 8.6-10.3 [facility] Comment on above: Performed By: #### L [id number] ####[facility] ([facility])[address] [place] [address] Chloride [Moles/Vol] 104 mmol/L Normal 98-107 [facility] Comment on above: Performed By: #### L [id number] ####[facility] ([facility] [place] [address] CO2 [Moles/Vol] 29 mmol/L Normal 21-31 [facility] Comment on above: Performed By: #### L [id number] ####[facility] ([facility])[address] [place] [address] Creatinine [Mass/Vol] 0.99 mg/dL Normal 0.70-1.30 [facility] Comment on above: Performed By: #### L [id number] ####[facility] ([facility])[address] [place] [address] GLOMERULAR FILTRATION RATE ML/MIN/1.73 SQ M.PREDICTED 78.0 mL/min/1.73m*2 Normal >60.0 [facility] Comment on above: Result Comment: The [facility]???s estimated glomerular filtration rate (eGFR) will [...] of individuals. Performed By: #### L [id number] ####[facility] ([facility])[address] [place] [address] Glucose [Mass/Vol] 156 mg/dL High 70-100 [facility] Comment on above: Performed By: #### L [id number] ####[facility] ([facility])[address] [place] [address] Potassium [Moles/Vol] 3.4 mmol/L Low 3.5-5.1 [facility] Comment on above: Performed By: #### L [id number] ####[facility] ([facility])[address] [place] [address] Sodium [Moles/Vol] 140 mmol/L Normal 136-145 [facility] Comment on above: Performed By: #### L [id number] ####[facility] ([facility])[address] [place] [address] Urea nitrogen [Mass/Vol] 35 mg/dL High 7-25 [facility] Comment on above: Performed By: #### L [id number] ####[facility] ([facility])[address] [place] [address] UREA NITROGEN/CREATININE (MASS RATIO) IN SER/PLAS 35.4 Normal [facility] Comment on above: Performed By: #### L [id number] ####[facility] ([facility])[address] [place] [address] BLOOD CULTUREon 03-01-2024 Bacteria identified Cx Nom (Bld) No growth at 5 days Normal [facility] Comment on above: Performed By: #### L [id number] ####[facility] ([facility])[address] [place] [address] CBC WITH AUTO DIFFERENTIALon 03-01-2024 Basophils (Bld) [#/Vol] 0.01 10*3/uL Normal 0.00-0.20 [facility] Comment on above: Performed By: #### L [id number] ####[facility] ([facility])[address] [place] [address] Basophils/100 WBC (Bld) 0.1 % Normal 0.0-1.0 [facility] Comment on above: Performed By: #### L [id number] ####[facility] ([facility])[address] [place] [address] Eosinophils (Bld) [#/Vol] 0.00 10*3/uL Normal 0.00-0.5 0 [facility] Comment on above: Performed By: #### L [id number] ####[facility] ([facility])[address] [place] [address] Eosinophils/100 WBC (Bld) 0.0 % Normal 0.0-6.0 [facility] Comment on above: Performed By: #### L [id number] ####[facility] ([facility])[address] [place] [address] Erythrocyte distribution width (RBC) [Ratio] 12.9 % Normal 11.5-15.0 [facility] Comment on above: Performed By: #### L [id number] ####[facility] ([facility])[address] [place] [address] ERYTHROCYTE MEAN CORPUSCULAR HEMOGLOBIN CONCENTRATION (G/DL) BY AUTOMATED 32.1 g/dL Normal 32.0-35.0 [facility] Comment on above: Performed By: #### L [id number] ####[facility] ([facility])[address] [place] [address] Hematocrit (Bld) [Volume fraction] 38.9 % Low 39.0-55.0 [facility] Comment on above: Performed By: #### L [id number] ####[facility] ([facility])[address] [place] [address] Hemoglobin (Bld) [Mass/Vol] 12.5 g/dL Low 13.0-17.0 [facility] Comment on above: Performed By: #### L [id number] ####[facility] ([facility])[address] [place] [address] Immature granulocytes (Bld) [#/Vol] 0.05 10*3/uL Normal 0.00-0.20 [facility] Comment on above: Performed By: #### L [id number] ####[facility] ([facility])[address] [place] [address] Immature granulocytes/100 WBC (Bld) 0.5 % Normal 0.0-1.0 [facility] Comment on above: Performed By: #### L [id number] ####[facility] ([facility])[address] [place] [address] Lymphocytes (Bld) [#/Vol] 0.42 10*3/uL Low 1.20-4.0 0 [facility] Comment on above: Performed By: #### L [id number] ####[facility] ([facility])[address] [place] [address] Lymphocytes/100 WBC (Bld) 4.2 % Low 20.0-45.0 [facility] Comment on above: Performed By: #### L [id number] ####[facility] ([facility])[address] [place] [address] MCH (RBC) [Entitic mass] 31.9 pg Normal 27.0-33.0 [facility] Comment on above: Performed By: #### L [id number] ####[facility] ([facility])[address] [place] [address] MCV (RBC) [Entitic vol] 99.2 fL High 82.0-98.0 [facility] Comment on above: Performed By: #### L [id number] ####[facility] ([facility])[address] [place] [address] Monocytes (Bld) [#/Vol] 0.45 10*3/uL Normal 0.10-1.00 [facility] Comment on above: Performed By: #### L [id number] ####[facility] ([facility])[address] [place] [address] Monocytes/100 WBC (Bld) 4.5 % Low 5.0-12.0 [facility] Comment on above: Performed By: #### L [id number] ####[facility] ([facility])[address] [place] [address] Neutrophils (Bld) [#/Vol] 9.11 10*3/uL High 1.60-7.6 0 [facility] Comment on above: Performed By: #### L [id number] ####[facility] ([facility])[address] [place] [address] Neutrophils/100 WBC (Bld) 90.7 % High 40.0-72.0 [facility] Comment on above: Performed By: #### L [id number] ####[facility] ([facility])[address] [place] [address] NRBC (PER 100 WBCS) BY AUTOMATED COUNT 0.0 % Normal 0 [facility] Comment on above: Performed By: #### L [id number] ####[facility] ([facility])[address] [place] [address] PLATELETS (10*3/UL) IN BLOOD AUTOMATED COUNT 165 10*3/uL Normal 150-400 [facility] Comment on above: Performed By: #### L [id number] ####[facility] ([facility])[address] [place] [address] RBC (Bld) [#/Vol] 3.92 10*6/uL Low 4.20-5.70 [facility] Comment on above: Performed By: #### L [id number] ####[facility] ([facility])[address] [place] [address] WBC (Bld) [#/Vol] 10.04 10*3/uL Normal 4.00-10.60 [facility] Comment on above: Performed By: #### L [id number] ####[facility] ([facility])[address] [place] [address] Basophils (Bld) [#/Vol] 0.01 10*3/uL Normal 0.00-0.20 [facility] Comment on above: Performed By: #### L [id number] ####[facility] ([facility])[address] [place] [address] Basophils/100 WBC (Bld) 0.1 % Normal 0.0-1.0 [facility] Comment on above: Performed By: #### L [id number] ####[facility] ([facility])[address] [place] [address] Eosinophils (Bld) [#/Vol] 0.00 10*3/uL Normal 0.00-0.5 0 [facility] Comment on above: Performed By: #### L [id number] ####[facility] ([facility])[address] [place] [address] Eosinophils/100 WBC (Bld) 0.0 % Normal 0.0-6.0 [facility] Comment on above: Performed By: #### L [id number] ####[facility] ([facility])[address] [place] [address] Erythrocyte distribution width (RBC) [Ratio] 12.8 % Normal 11.5-15.0 [facility] Comment on above: Performed By: #### L [id number] ####[facility] ([facility])[address] [place] [address] ERYTHROCYTE MEAN CORPUSCULAR HEMOGLOBIN CONCENTRATION (G/DL) BY AUTOMATED 31.9 g/dL Low 32.0-35.0 [facility] Comment on above: Performed By: #### L [id number] ####[facility] ([facility])[address] [place] [address] Hematocrit (Bld) [Volume fraction] 37.9 % Low 39.0-55.0 [facility] Comment on above: Performed By: #### L [id number] ####[facility] ([facility])[address] [place] [address] Hemoglobin (Bld) [Mass/Vol] 12.1 g/dL Low 13.0-17.0 [facility] Comment on above: Performed By: #### L [id number] ####[facility] [place] [address] Immature granulocytes (Bld) [#/Vol] 0.05 10*3/uL Normal 0.00-0.20 [facility] Comment on above: Performed By: #### L [id number] ####[facility] ([facility] [place] [address] Immature granulocytes/100 WBC (Bld) 0.7 % Normal 0.0-1.0 [facility] Comment on above: Performed By: #### L [id number] ####[facility] ([facility])[address] [place] [address] Lymphocytes (Bld) [#/Vol] 0.43 10*3/uL Low 1.20-4.0 0 [facility] Comment on above: Performed By: #### L [id number] ####[facility] ([facility] [place] [address] Lymphocytes/100 WBC (Bld) 6.0 % Low 20.0-45.0 [facility] Comment on above: Performed By: #### L [id number] ####[facility] ([facility] [place] [address] MCH (RBC) [Entitic mass] 32.1 pg Normal 27.0-33.0 [facility] Comment on above: Performed By: #### L [id number] ####[facility] ([facility])[address] [place] [address] MCV (RBC) [Entitic vol] 100.5 fL High 82.0-98.0 [facility] Comment on above: Performed By: #### L [id number] ####[facility] ([facility])[address] [place] [address] Monocytes (Bld) [#/Vol] 0.26 10*3/uL Normal 0.10-1.00 [facility] Comment on above: Performed By: #### L [id number] ####[facility] ([facility])[address] [place] [address] Monocytes/100 WBC (Bld) 3.6 % Low 5.0-12.0 [facility] Comment on above: Performed By: #### L [id number] ####[facility] ([facility])[address] [place] [address] Neutrophils (Bld) [#/Vol] 6.39 10*3/uL Normal 1.60-7.6 0 [facility] Comment on above: Performed By: #### L [id number] ####[facility] ([facility])[address] [place] [address] Neutrophils/100 WBC (Bld) 89.6 % High 40.0-72.0 [facility] Comment on above: Performed By: #### L [id number] ####[facility] ([facility])[address] [place] [address] NRBC (PER 100 WBCS) BY AUTOMATED COUNT 0.0 % Normal 0 [facility] Comment on above: Performed By: #### L [id number] ####[facility] ([facility])[address] [place] [address] PLATELETS (10*3/UL) IN BLOOD AUTOMATED COUNT 161 10*3/uL Normal 150-400 [facility] Comment on above: Performed By: #### L [id number] ####[facility] ([facility])[address] [place] [address] RBC (Bld) [#/Vol] 3.77 10*6/uL Low 4.20-5.70 [facility] Comment on above: Performed By: #### L [id number] ####[facility] ([facility])[address] [address] WBC (Bld) [#/Vol] 7.14 10*3/uL Normal 4.00-10.60 [facility] Comment on above: Performed By: #### L [id number] ####[facility] ([facility])[address] [place] [address] CONSULTon 03-01-2024 CONSULT Normal [facility] MAGNESIUMon 03-01-2024 Magnesium [Mass/Vol] 2.1 mg/dL Normal 1.9-2.7 [facility] Comment on above: Performed By: #### L [id number] ####[facility] ([facility])[address] [place] [address] PHOSPHORUSon 03-01-2024 Magnesium [Mass/Vol] 2.3 mg/dL Low 2.5-5.0 [facility] Comment on above: Performed By: #### L [id number] ####[facility] ([facility])[address] [place] [address] PLATELET COUNTon 03-01-2024 PLATELETS (10*3/UL) IN BLOOD AUTOMATED COUNT 157 10*3/uL Normal 150-400 [facility] Comment on above: Performed By: #### L [id number] ####[facility] ([facility])[address] [place] [address] URINALYSIS WITH MICROSCOPICo n 03-01-2024 BILIRUBIN, TOTAL PRESENCE IN URINE Negative Normal Negative [facility] Comment on above: Performed By: #### L [id number] ####[facility] ([facility])[address] [place] [address] Clarity (U) Turbid Abnormal Clear [facility] Comment on above: Performed By: #### L [id number] ####[facility] ([facility])[address] [place] [address] Color (U) Yellow Normal Colorless, Yellow, Light-Otter Tail ow [facility] Comment on above: Performed By: #### L [id number] ####[facility] ([facility])[address] [place] [address] GLUCOSE (MG/DL) IN URINE Normal Normal Normal [facility] Comment on above: Performed By: #### L [id number] ####[facility] ([facility])[address] [place] [address] HEMOGLOBIN PRESENCE IN URINE Moderate Abnormal Negative [facility] Comment on above: Performed By: #### L [id number] ####[facility] ([facility])[address] [place] [address] Ketones Ql (U) Negative Normal Negative [facility] Comment on above: Performed By: #### L [id number] ####[facility] ([facility])[address] [place], [place] [address] LEUKOCYTE ESTERASE PRESENCE IN URINE BY TEST STRIP Large Abnormal Negative [facility] Comment on above: Performed By: #### L [id number] ####[facility] ([facility])[address] [place], [place] [address] MUCUS (#/LPF) IN URINE SEDIMENT Few Normal None Seen, Occasional , Few [facility] Comment on above: Performed By: #### L [id number] ####[facility] ([facility])[address] [place] [address] NITRITE PRESENCE IN URINE Negative Normal Negative [facility] Comment on above: Performed By: #### L [id number] ####[facility] ([facility])[address] [place], [place] [address] pH (U) 5.5 [pH] Normal 5.0-8.0 [facility] Comment on above: Performed By: #### L [id number] ####[facility] ([facility])[address] [place], [place] [address] Protein (U) [Mass/Vol] Negative Normal Negative [facility] on above: Performed By: #### L [id number] ####[facility] ([facility])[address] [place], [place] [address] RBC (#/HPF) IN URINE SEDIMENT >20 Abnormal None Seen, 0-2 [facility] Comment on above: Performed By: #### L [id number] ####[facility] ([facility])[address] [place] [address] Specific gravity (U) [Rel density] 1.012 Normal 1.010-1.03 0 [facility] Comment on above: Performed By: #### L [id number] ####[facility] ([facility])[address] [place] [address] SQUAMOUS EPITHELIAL CELLS (#/LPF) IN URINE SEDIMENT Many Abnormal None Seen, Occasional , Few [facility] Comment on above: Performed By: #### L [id number] ####[facility] ([facility])[address] [place] [address] UROBILINOGEN (MG/DL) IN URINE Normal Normal Normal [facility] Comment on above: Performed By: #### L [id number] ####[facility] ([facility])[address] [place] [address] WBC (LEUKOCYTE) (#/HPF) IN URINE SEDIMENT >50 Abnormal None Seen, 0-2 [facility] Comment on above: Performed By: #### L [id number] ####[facility] ([facility])[address] [place] [address] WBC (LEUKOCYTE) CLUMPS (#/HPF) IN URINE SEDIMENT Present Abnormal None Seen [facility] Comment on above: Performed By: #### L [id number] ####[facility] ([facility])[address] [place] [address] URINE CULTURE, ROUTINEon Ampicillin [Susc] 2 ug/ml Susceptible [facility] Comment on above: Performed By: #### L [id number] ####[facility] ([facility])[address] [place] [address] Nitrofurantoin [Susc] <=16 Susceptible [facility] Comment on above: Performed By: #### L [id number] ####[facility] ([facility])[address] [place] [address] Vancomycin [Susc] 1 ug/ml Susceptible [facility] Comment on above: Performed By: #### L [id number] ####[facility] ([facility])[address] [place] [address] B-TYPE NATRIURETIC PEPTIDEon 02-29-2024 Natriuretic peptide B (Bld) [Mass/Vol] 524 pg/mL High 0-100 [facility] Comment on above: Performed By: #### L [id number] ####[facility] ([facility])[address] [place] [address] BASIC METABOLIC PANELon 02-12 Anion gap [Moles/Vol] 10 mmol/L Normal 7-20 [facility] Comment on above: Performed By: #### L [id number] ####[facility] [place] [address] Calcium [Mass/Vol] 8.6 mg/dL Normal 8.6-10.3 [facility] Comment on above: Performed By: #### L [id number] ####[facility] ([facility] [place] [address] Chloride [Moles/Vol] 104 mmol/L Normal 98-107 [facility] Comment on above: Performed By: #### L [id number] ####[facility] ([facility])[address] [place] [address] CO2 [Moles/Vol] 30 mmol/L Normal 21-31 [facility] Comment on above: Performed By: #### L [id number] ####[facility] ([facility] [place] [address] Creatinine [Mass/Vol] 0.99 mg/dL Normal 0.70-1.30 [facility] Comment on above: Performed By: #### L [id number] ####[facility] ([facility] [place] [address] GLOMERULAR FILTRATION RATE ML/MIN/1.73 SQ M.PREDICTED 78.0 mL/min/1.73m*2 Normal >60.0 [facility] Comment on above: Result Comment: The [facility]???s estimated glomerular filtration rate (eGFR) will [...] of individuals. Performed By: #### L [id number] ####[facility] ([facility])[address] [place] [address] Glucose [Mass/Vol] 134 mg/dL High 70-100 [facility] Comment on above: Performed By: #### L [id number] ####[facility] ([facility])[address] [place] [address] Potassium [Moles/Vol] 3.4 mmol/L Low 3.5-5.1 [facility] Comment on above: Performed By: #### L [id number] ####[facility] ([facility])[address] [place] [address] Sodium [Moles/Vol] 141 mmol/L Normal 136-145 [facility] Comment on above: Performed By: #### L [id number] ####[facility] ([facility])[address] [place] [address] Urea nitrogen [Mass/Vol] 24 mg/dL Normal 7-25 [facility] Comment on above: Performed By: #### L [id number] ####[facility] ([facility])[address] [place] [address] UREA NITROGEN/CREATININE (MASS RATIO) IN SER/PLAS 24.2 Normal [facility] Comment on above: Performed By: #### L [id number] ####[facility] ([facility])[address] [place] [address] Anion gap [Moles/Vol] 10 mmol/L Normal 7-20 [facility] Comment on above: Performed By: #### L [id number] ####[facility] ([facility])[address] [place] [address] Calcium [Mass/Vol] 8.4 mg/dL Low 8.6-10.3 [facility] Comment on above: Performed By: #### L [id number] ####[facility] ([facility])[address] [place] [address] Chloride [Moles/Vol] 105 mmol/L Normal 98-107 [facility] Comment on above: Performed By: #### L [id number] ####[facility] ([facility])[address] [place] [address] CO2 [Moles/Vol] 28 mmol/L Normal 21-31 [facility] Comment on above: Performed By: #### L [id number] ####[facility] ([facility])[address] [place] [address] Creatinine [Mass/Vol] 1.06 mg/dL Normal 0.70-1.30 [facility] Comment on above: Performed By: #### L [id number] ####[facility] ([facility])[address] [place] [address] GLOMERULAR FILTRATION RATE ML/MIN/1.73 SQ M.PREDICTED 71.8 mL/min/1.73m*2 Normal >60.0 [facility] Comment on above: Result Comment: The [facility]???s estimated glomerular filtration rate (eGFR) will [...] of individuals. Performed By: #### L [id number] ####[facility] [place] [address] Glucose [Mass/Vol] 141 mg/dL High 70-100 [facility] Comment on above: Performed By: #### L [id number] ####[facility] [place] [address] Potassium [Moles/Vol] 3.5 mmol/L Normal 3.5-5.1 [facility] Comment on above: Performed By: #### L [id number] ####[facility] ([facility] [place] [address] Sodium [Moles/Vol] 139 mmol/L Normal 136-145 [facility] Comment on above: Performed By: #### L [id number] ####[facility] ([facility] [place] [address] Urea nitrogen [Mass/Vol] 23 mg/dL Normal 7-25 [facility] Comment on above: Performed By: #### L [id number] ####[facility] ([facility])[address] [place] [address] UREA NITROGEN/CREATININE (MASS RATIO) IN SER/PLAS 21.7 Normal [facility] Comment on above: Performed By: #### L [id number] ####[facility] ([facility])[address] [place] [address] CBC WITH AUTO DIFFERENTIALon 02-29-2024 Basophils (Bld) [#/Vol] 0.01 10*3/uL Normal 0.00-0.20 [facility] Comment on above: Performed By: #### L [id number] ####[facility] ([facility])[address] [place] [address] Basophils/100 WBC (Bld) 0.2 % Normal 0.0-1.0 [facility] Comment on above: Performed By: #### L [id number] ####[facility] ([facility] [place] [address] Eosinophils (Bld) [#/Vol] 0.00 10*3/uL Normal 0.00-0.5 0 [facility] Comment on above: Performed By: #### L [id number] ####[facility] ([facility])[address] [place] [address] Eosinophils/100 WBC (Bld) 0.0 % Normal 0.0-6.0 [facility] Comment on above: Performed By: #### L [id number] ####[facility] ([facility])[address] [place] [address] Erythrocyte distribution width (RBC) [Ratio] 12.8 % Normal 11.5-15.0 [facility] Comment on above: Performed By: #### L [id number] ####[facility] ([facility])[address] [place] [address] ERYTHROCYTE MEAN CORPUSCULAR HEMOGLOBIN CONCENTRATION (G/DL) BY AUTOMATED 32.0 g/dL Normal 32.0-35.0 [facility] Comment on above: Performed By: #### L [id number] ####[facility] ([facility])[address] [place] [address] Hematocrit (Bld) [Volume fraction] 38.7 % Low 39.0-55.0 [facility] Comment on above: Performed By: #### L [id number] ####[facility] ([facility])[address] [place] [address] Hemoglobin (Bld) [Mass/Vol] 12.4 g/dL Low 13.0-17.0 [facility] Comment on above: Performed By: #### L [id number] ####[facility] ([facility])[address] [place] [address] Immature granulocytes (Bld) [#/Vol] 0.04 10*3/uL Normal 0.00-0.20 [facility] Comment on above: Performed By: #### L [id number] ####[facility] ([facility])[address] [place] [address] Immature granulocytes/100 WBC (Bld) 0.7 % Normal 0.0-1.0 [facility] Comment on above: Performed By: #### L [id number] ####[facility] ([facility])[address] [place] [address] IMMATURE PLATELET FRACTION % 4.9 % Normal 0.8-6.3 [facility] Comment on above: Performed By: #### L [id number] ####[facility] ([facility])[address] [place] [address] Lymphocytes (Bld) [#/Vol] 0.38 10*3/uL Low 1.20-4.0 0 [facility] Comment on above: Performed By: #### L [id number] ####[facility] ([facility])[address] [place] [address] Lymphocytes/100 WBC (Bld) 6.2 % Low 20.0-45.0 [facility] Comment on above: Performed By: #### L [id number] ####[facility] ([facility])[address] [place] [address] MCH (RBC) [Entitic mass] 32.0 pg Normal 27.0-33.0 [facility] Comment on above: Performed By: #### L [id number] ####[facility] ([facility])[address] [place] [address] MCV (RBC) [Entitic vol] 100.0 fL High 82.0-98.0 [facility] Comment on above: Performed By: #### L [id number] ####[facility] ([facility])[address] [place] [address] Monocytes (Bld) [#/Vol] 0.35 10*3/uL Normal 0.10-1.00 [facility] Comment on above: Performed By: #### L [id number] ####[facility] ([facility])[address] [place] [address] Monocytes/100 WBC (Bld) 5.7 % Normal 5.0-12.0 [facility] Comment on above: Performed By: #### L [id number] ####[facility] ([facility])[address] [place] [address] Neutrophils (Bld) [#/Vol] 5.36 10*3/uL Normal 1.60-7.6 0 [facility] Comment on above: Performed By: #### L [id number] ####[facility] ([facility])[address] [facility] [place] [address] Neutrophils/100 WBC (Bld) 87.2 % High 40.0-72.0 [facility] Comment on above: Performed By: #### L [id number] ####[facility] ([facility])[address] [place] [address] NRBC (PER 100 WBCS) BY AUTOMATED COUNT 0.0 % Normal 0 [facility] Comment on above: Performed By: #### L [id number] ####[facility] ([facility])[address] [place] [address] PLATELETS (10*3/UL) IN BLOOD AUTOMATED COUNT 122 10*3/uL Low 150-400 [facility] Comment on above: Performed By: #### L [id number] ####[facility] ([facility])[address] [place] [address] RBC (Bld) [#/Vol] 3.87 10*6/uL Low 4.20-5.70 [facility] Comment on above: Performed By: #### L [id number] ####[facility] ([facility])[address] [facility] [place] [address] WBC (Bld) [#/Vol] 6.14 10*3/uL Normal 4.00-10.60 [facility] Comment on above: Performed By: #### L [id number] ####[facility] ([facility])[address] [place] [address] CONSULTon 02-29-2024 CONSULT Normal [facility] LEGIONELLA ANTIGEN, URINEon 02-29-2024 LEGIONELLA AG, UR Negative Normal NEG [facility] Comment on above: Result Comment: L. p neumophila serogroup 1 antigen not detected.A negative result does not exclude infection with Leginella pnemophila serogroup 1 nor does it rule out other microbial-caused respiratory infections of disease caused by other serogroups of Legionella pneumophila.Test Performed by [employer] [address] [place] [id number] - Released 03/01/2024 15:07 Performed By: #### L [id number] ####[facility] [id number] [place] [address] MAGNESIUMon 02-29-2024 Magnesium [Mass/Vol] 2.0 mg/dL Normal 1.9-2.7 [facility] Comment on above: Performed By: #### L [id number] ####[facility] ([facility])[address] [place] [address] Magnesium [Mass/Vol] 1.9 mg/dL Normal 1.9-2.7 [facility] Comment on above: Performed By: #### L [id number] ####[facility] ([facility])[address] [place] [address] PHOSPHORUSon 02-29-2024 Magnesium [Mass/Vol] 2.4 mg/dL Low 2.5-5.0 [facility] Comment on above: Performed By: #### L [id number] ####[facility] ([facility])[address] [facility] [address] RESPIRATORY VIRUS PCR PANELo n 02-29-2024 ADENOVIRUS DETECTION BY PCR Not detected Normal Not Detected [facility] Comment on above: Order Comment: Testi ng methodology is a multiplexed nucleic acid test intended for the simultaneous qualitative detection and differentiation of nucleic acids from multiple viral and bacterial respiratory organisms in nasopharyngeal swabs (FEED INSPECTION SUPERVISOR). Performed By: #### L [id number] ####[facility] ([facility])[address] [place] [address] B. PARAPERTUSSIS DNA Not detected Normal Not Detected [facility] Comment on above: Order Comment: Testi ng methodology is a multiplexed nucleic acid test intended for the simultaneous qualitative detection and differentiation of nucleic acids from multiple viral and bacterial respiratory organisms in nasopharyngeal swabs (FEED INSPECTION SUPERVISOR). Performed By: #### L [id number] ####[facility] ([facility])[address] [place] [address] BORDETELLA PERTUSSIS DNA PRESENCE IN UNSPECIFIED SPECIMEN BY CT* Not detected Normal Not Detected [facility] Comment on above: Order Comment: Testi ng methodology is a multiplexed nucleic acid test intended for the simultaneous qualitative detection and differentiation of nucleic acids from multiple viral and bacterial respiratory organisms in nasopharyngeal swabs (FEED INSPECTION SUPERVISOR). Performed By: #### L [id number] ####[facility] ([facility])[address] [place] [address] CHLAMYDOPHILA PNEUMONIAE Not detected Normal Not Detected [facility] Comment on above: Order Comment: Testi ng methodology is a multiplexed nucleic acid test intended for the simultaneous qualitative detection and differentiation of nucleic acids from multiple viral and bacterial respiratory organisms in nasopharyngeal swabs (FEED INSPECTION SUPERVISOR). Performed By: #### L [id number] ####[facility] ([facility])[address] [place] [address] CORONAVIRUS [id number] Not detected Normal Not Detected [facility] Comment on above: Order Comment: Testi ng methodology is a multiplexed nucleic acid test intended for the simultaneous qualitative detection and differentiation of nucleic acids from multiple viral and bacterial respiratory organisms in nasopharyngeal swabs (FEED INSPECTION SUPERVISOR). Performed By: #### L [id number] ####[facility] ([facility])[address] [place] [address] CORONAVIRUS HKU1 Not detected Normal Not Detected [facility] Comment on above: Order Comment: Testi ng methodology is a multiplexed nucleic acid test intended for the simultaneous qualitative detection and differentiation of nucleic acids from multiple viral and bacterial respiratory organisms in nasopharyngeal swabs (FEED INSPECTION SUPERVISOR). Performed By: #### L [id number] ####[facility] ([facility])[address] [place] [address] CORONAVIRUS [id number] Not detected Normal Not Detected [facility] Comment on above: Order Comment: Testi ng methodology is a multiplexed nucleic acid test intended for the simultaneous qualitative detection and differentiation of nucleic acids from multiple viral and bacterial respiratory organisms in nasopharyngeal swabs (FEED INSPECTION SUPERVISOR). Performed By: #### L [id number] ####[facility] ([facility])[address] [place] [address] CORONAVIRUS OC43 Not detected Normal Not Detected [facility] Comment on above: Order Comment: Testi ng methodology is a multiplexed nucleic acid test intended for the simultaneous qualitative detection and differentiation of nucleic acids from multiple viral and bacterial respiratory organisms in nasopharyngeal swabs (FEED INSPECTION SUPERVISOR). Performed By: #### L [id number] ####[facility] ([facility])[address] [place] [address] HUMAN METAPNEUMOVIRUS Not detected Normal Not Detected [facility] Comment on above: Order Comment: Testi ng methodology is a multiplexed nucleic acid test intended for the simultaneous qualitative detection and differentiation of nucleic acids from multiple viral and bacterial respiratory organisms in nasopharyngeal swabs (FEED INSPECTION SUPERVISOR). Performed By: #### L [id number] ####[facility] ([facility])[address] [place] [address] HUMAN RHINOVIRUS+ENTEROVIRUS Not detected Normal Not Detected [facility] Comment on above: Order Comment: Testi ng methodology is a multiplexed nucleic acid test intended for the simultaneous qualitative detection and differentiation of nucleic acids from multiple viral and bacterial respiratory organisms in nasopharyngeal swabs (FEED INSPECTION SUPERVISOR). Performed By: #### L [id number] ####[facility] ([facility])[address] [place] [address] INFLUENZA A Not detected Normal Not Detected [facility] Comment on above: Order Comment: Testi ng methodology is a multiplexed nucleic acid test intended for the simultaneous qualitative detection and differentiation of nucleic acids from multiple viral and bacterial respiratory organisms in nasopharyngeal swabs (FEED INSPECTION SUPERVISOR). Performed By: #### L [id number] ####[facility] ([facility])[address] [place] [address] INFLUENZA B Not detected Normal Not Detected [facility] Comment on above: Order Comment: Testi ng methodology is a multiplexed nucleic acid test intended for the simultaneous qualitative detection and differentiation of nucleic acids from multiple viral and bacterial respiratory organisms in nasopharyngeal swabs (FEED INSPECTION SUPERVISOR). Performed By: #### L [id number] ####[facility] ([facility])[address] [place] [address] MYCOPLASMA PNEUMONIAE Not detected Normal Not Detected [facility] Comment on above: Order Comment: Testi ng methodology is a multiplexed nucleic acid test intended for the simultaneous qualitative detection and differentiation of nucleic acids from multiple viral and bacterial respiratory organisms in nasopharyngeal swabs (FEED INSPECTION SUPERVISOR). Performed By: #### L [id number] ####[facility] ([facility])[address] [place] [address] PARAINFLUENZA 1 Not detected Normal Not Detected [facility] Comment on above: Order Comment: Testi ng methodology is a multiplexed nucleic acid test intended for the simultaneous qualitative detection and differentiation of nucleic acids from multiple viral and bacterial respiratory organisms in nasopharyngeal swabs (FEED INSPECTION SUPERVISOR). Performed By: #### L [id number] ####[facility] ([facility])[address] [place] [address] PARAINFLUENZA 2 Not detected Normal Not Detected [facility] Comment on above: Order Comment: Testi ng methodology is a multiplexed nucleic acid test intended for the simultaneous qualitative detection and differentiation of nucleic acids from multiple viral and bacterial respiratory organisms in nasopharyngeal swabs (FEED INSPECTION SUPERVISOR). Performed By: #### L [id number] ####[facility] ([facility])[address] [place] [address] PARAINFLUENZA 3 Not detected Normal Not Detected [facility] Comment on above: Order Comment: Testi ng methodology is a multiplexed nucleic acid test intended for the simultaneous qualitative detection and differentiation of nucleic acids from multiple viral and bacterial respiratory organisms in nasopharyngeal swabs (FEED INSPECTION SUPERVISOR). Performed By: #### L [id number] ####[facility] ([facility])[address] [place] [address] PARAINFLUENZA 4 Not detected Normal Not Detected [facility] Comment on above: Order Comment: Testi ng methodology is a multiplexed nucleic acid test intended for the simultaneous qualitative detection and differentiation of nucleic acids from multiple viral and bacterial respiratory organisms in nasopharyngeal swabs (FEED INSPECTION SUPERVISOR). Performed By: #### L [id number] ####[facility] ([facility])[address] [place] [address] RESP SYNCYTIAL VIRUS Not detected Normal Not Detected [facility] Comment on above: Order Comment: Testi ng methodology is a multiplexed nucleic acid test intended for the simultaneous qualitative detection and differentiation of nucleic acids from multiple viral and bacterial respiratory organisms in nasopharyngeal swabs (FEED INSPECTION SUPERVISOR). Performed By: #### L [id number] ####[facility] ([facility])[address] [place] [address] SARS-CoV-2 (COVID-19) RNA TAI+probe Ql (Unsp spec) Not detected Normal Not Detected [facility] Comment on above: Order Comment: Testi ng methodology is a multiplexed nucleic acid test intended for the simultaneous qualitative detection and differentiation of nucleic acids from multiple viral and bacterial respiratory organisms in nasopharyngeal swabs (FEED INSPECTION SUPERVISOR). Performed By: #### L [id number] ####[facility] ([facility])[address] [place] [address] ANTI-XA (HEPARIN LEVEL)on HEPARIN UNFRACTIONATED (U/ML) IN PPP BY CHROMOGENIC METHOD <0.10 Invalid Interpretation Code 0.3-0.7 [facility] Comment on above: Order Comment: Check anti-Xa level every 6 hours while on heparin infusion, or per protocol. Result Comment: Ricarda roxaban and Apixaban will interfere with the anti Xa assay used to monitor UFH and LMWH. Performed By: #### L [id number] ####[facility] ([facility])[address] [place] [address] BASIC METABOLIC PANELon 02-12 Anion gap [Moles/Vol] 10 mmol/L Normal 7-20 [facility] Comment on above: Performed By: #### L [id number] ####[facility] ([facility])[address] [place] [address] Calcium [Mass/Vol] 8.0 mg/dL Low 8.6-10.3 [facility] Comment on above: Performed By: #### L [id number] ####[facility] ([facility])[address] [place] [address] Chloride [Moles/Vol] 102 mmol/L Normal 98-107 [facility] Comment on above: Performed By: #### L [id number] ####[facility] [place] [address] CO2 [Moles/Vol] 30 mmol/L Normal 21-31 [facility] Comment on above: Performed By: #### L [id number] ####[facility] [place] [address] Creatinine [Mass/Vol] 1.22 mg/dL Normal 0.70-1.30 [facility] Comment on above: Performed By: #### L [id number] ####[facility] ([facility])[address] [place] [address] GLOMERULAR FILTRATION RATE ML/MIN/1.73 SQ M.PREDICTED 60.7 mL/min/1.73m*2 Normal >60.0 [facility] Comment on above: Result Comment: The [facility]???s estimated glomerular filtration rate (eGFR) will [...] of individuals. Performed By: #### L [id number] ####[facility] ([facility])[address] [place] [address] Glucose [Mass/Vol] 94 mg/dL Normal 70-100 [facility] Comment on above: Performed By: #### L [id number] ####[facility] ([facility])[address] [place] [address] Potassium [Moles/Vol] 3.0 mmol/L Low 3.5-5.1 [facility] Comment on above: Performed By: #### L [id number] ####[facility] ([facility])[address] [place] [address] Sodium [Moles/Vol] 139 mmol/L Normal 136-145 [facility] Comment on above: Performed By: #### L [id number] ####[facility] ([facility])[address] [place] [address] Urea nitrogen [Mass/Vol] 16 mg/dL Normal 7-25 [facility] Comment on above: Performed By: #### L [id number] ####[facility] ([facility])[address] [place] [address] UREA NITROGEN/CREATININE (MASS RATIO) IN SER/PLAS 13.1 Normal [facility] Comment on above: Performed By: #### L [id number] ####[facility] [place] [address] CBC WITH AUTO DIFFERENTIALon 02-28-2024 Basophils (Bld) [#/Vol] 0.03 10*3/uL Normal 0.00-0.20 [facility] Comment on above: Performed By: #### L [id number] ####[facility] ([facility])[address] [place] [address] Basophils/100 WBC (Bld) 0.3 % Normal 0.0-1.0 [facility] Comment on above: Performed By: #### L [id number] ####[facility] ([facility])[address] [place] [address] Eosinophils (Bld) [#/Vol] 0.00 10*3/uL Normal 0.00-0.5 0 [facility] Comment on above: Performed By: #### L [id number] ####[facility] ([facility])[address] [place] [address] Eosinophils/100 WBC (Bld) 0.0 % Normal 0.0-6.0 [facility] Comment on above: Performed By: #### L [id number] ####[facility] ([facility] [place] [address] Erythrocyte distribution width (RBC) [Ratio] 13.0 % Normal 11.5-15.0 [facility] Comment on above: Performed By: #### L [id number] ####[facility] ([facility])[address] [place] [address] ERYTHROCYTE MEAN CORPUSCULAR HEMOGLOBIN CONCENTRATION (G/DL) BY AUTOMATED 32.3 g/dL Normal 32.0-35.0 [facility] Comment on above: Performed By: #### L [id number] ####[facility] ([facility])[address] [place] [address] Hematocrit (Bld) [Volume fraction] 37.5 % Low 39.0-55.0 [facility] Comment on above: Performed By: #### L [id number] ####[facility] ([facility])[address] [place] [address] Hemoglobin (Bld) [Mass/Vol] 12.1 g/dL Low 13.0-17.0 [facility] Comment on above: Performed By: #### L [id number] ####[facility] ([facility])[address] [place] [address] Immature granulocytes (Bld) [#/Vol] 0.06 10*3/uL Normal 0.00-0.20 [facility] Comment on above: Performed By: #### L [id number] ####[facility] ([facility])[address] [place] [address] Immature granulocytes/100 WBC (Bld) 0.6 % Normal 0.0-1.0 [facility] Comment on above: Performed By: #### L [id number] ####[facility] ([facility])[address] [place] [address] Lymphocytes (Bld) [#/Vol] 0.56 10*3/uL Low 1.20-4.0 0 [facility] Comment on above: Performed By: #### L [id number] ####[facility] ([facility])[address] [place] [address] Lymphocytes/100 WBC (Bld) 6.1 % Low 20.0-45.0 [facility] Comment on above: Performed By: #### L [id number] ####[facility] ([facility])[address] [place] [address] MCH (RBC) [Entitic mass] 32.3 pg Normal 27.0-33.0 [facility] Comment on above: Performed By: #### L [id number] ####[facility] ([facility])[address] [place] [address] MCV (RBC) [Entitic vol] 100.0 fL High 82.0-98.0 [facility] Comment on above: Performed By: #### L [id number] ####[facility] ([facility])[address] [place] [address] Monocytes (Bld) [#/Vol] 1.19 10*3/uL High 0.10-1.00 [facility] Comment on above: Performed By: #### L [id number] ####[facility] ([facility])[address] [place] [address] Monocytes/100 WBC (Bld) 12.9 % High 5.0-12.0 [facility] Comment on above: Performed By: #### L [id number] ####[facility] ([facility])[address] [place] [address] Neutrophils (Bld) [#/Vol] 7.41 10*3/uL Normal 1.60-7.6 0 [facility] Comment on above: Performed By: #### L [id number] ####[facility] ([facility])[address] [place] [address] Neutrophils/100 WBC (Bld) 80.1 % High 40.0-72.0 [facility] Comment on above: Performed By: #### L [id number] ####[facility] ([facility])[address] [place] [address] NRBC (PER 100 WBCS) BY AUTOMATED COUNT 0.0 % Normal 0 [facility] Comment on above: Performed By: #### L [id number] ####[facility] ([facility])[address] [place] [address] PLATELETS (10*3/UL) IN BLOOD AUTOMATED COUNT 146 10*3/uL Low 150-400 [facility] Comment on above: Performed By: #### L [id number] ####[facility] ([facility])[address] [place] [address] RBC (Bld) [#/Vol] 3.75 10*6/uL Low 4.20-5.70 [facility] Comment on above: Performed By: #### L [id number] ####[facility] ([facility])[address] [place] [address] WBC (Bld) [#/Vol] 9.25 10*3/uL Normal 4.00-10.60 [facility] Comment on above: Performed By: #### L [id number] ####[facility] ([facility])[address] [place] [address] MAGNESIUMon 02-28-2024 Magnesium [Mass/Vol] 1.5 mg/dL Low 1.9-2.7 [facility] Comment on above: Performed By: #### L [id number] ####[facility] ([facility])[address] [place] [address] PHOSPHORUSon 02-28-2024 Magnesium [Mass/Vol] 2.7 mg/dL Normal 2.5-5.0 [facility] Comment on above: Performed By: #### L [id number] ####[facility] ([facility])[address] [place] [address] PROCALCITONIN TESTon 024 PROCALCITONIN IN BLOOD 3.55 ng/mL Critically high 0.00-0.1 0 [facility] Comment on above: Result Comment: Susp [...] and initial PCT<0.5ng/mL Performed By: #### L [id number] ####[facility] ([facility])[address] [place] [address] URINALYSIS WITH MICROSCOPICo n 02-28-2024 BILIRUBIN, TOTAL PRESENCE IN URINE Negative Normal Negative [facility] Comment on above: Performed By: #### L [id number] ####[facility] ([facility])[address] [place] [address] Clarity (U) Cloudy Abnormal Clear [facility] Comment on above: Performed By: #### L [id number] ####[facility] ([facility])[address] [place] [address] Color (U) Yellow Normal Colorless, Yellow, Light-Otter Tail ow [facility] Comment on above: Performed By: #### L [id number] ####[facility] ([facility])[address] [place] [address] GLUCOSE (MG/DL) IN URINE Normal Normal Normal [facility] Comment on above: Performed By: #### L [id number] ####[facility] ([facility])[address] [place] [address] HEMOGLOBIN PRESENCE IN URINE Moderate Abnormal Negative [facility] Comment on above: Performed By: #### L [id number] ####[facility] ([facility])[address] [place] [address] Ketones Ql (U) Negative Normal Negative [facility] Comment on above: Performed By: #### L [id number] ####[facility] ([facility])[address] [place] [address] LEUKOCYTE ESTERASE PRESENCE IN URINE BY TEST STRIP Large Abnormal Negative [facility] Comment on above: Performed By: #### L [id number] ####[facility] ([facility])[address] [place] [address] MUCUS (#/LPF) IN URINE SEDIMENT Occasional Normal None Seen, Occasional , Few [facility] Comment on above: Performed By: #### L [id number] ####[facility] ([facility])[address] [place] [address] NITRITE PRESENCE IN URINE Negative Normal Negative [facility] Comment on above: Performed By: #### L [id number] ####[facility] ([facility])[address] [place] [address] pH (U) 6.0 [pH] Normal 5.0-8.0 [facility] Comment on above: Performed By: #### L [id number] ####[facility] ([facility])[address] [place] [address] Protein (U) [Mass/Vol] 30 mg/dL Abnormal Negative [facility] on above: Performed By: #### L [id number] ####[facility] ([facility])[address] [place] [address] RBC (#/HPF) IN URINE SEDIMENT 11-20 Abnormal None Seen, 0-2 [facility] Comment on above: Performed By: #### L [id number] ####[facility] ([facility])[address] [place] [address] Specific gravity (U) [Rel density] 1.018 Normal 1.010-1.03 0 [facility] Comment on above: Performed By: #### L [id number] ####[facility] ([facility])[address] [place] [address] SQUAMOUS EPITHELIAL CELLS (#/LPF) IN URINE SEDIMENT Few Normal None Seen, Occasional , Few [facility] Comment on above: Performed By: #### L [id number] ####[facility] ([facility])[address] [place] [address] UROBILINOGEN (MG/DL) IN URINE Normal Normal Normal [facility] Comment on above: Performed By: #### L [id number] ####[facility] ([facility])[address] [facility] [place] [address] WBC (LEUKOCYTE) (#/HPF) IN URINE SEDIMENT >50 Abnormal None Seen, 0-2 [facility] Comment on above: Performed By: #### L [id number] ####[facility] ([facility])[address] [facility] [address] WBC (LEUKOCYTE) CLUMPS (#/HPF) IN URINE SEDIMENT Present Abnormal None Seen [facility] Comment on above: Performed By: #### L [id number] ####[facility] ([facility])[address] [facility] [address] YEAST, BUDDING (#/HPF) IN URINE Occasional Abnormal None Seen [facility] Comment on above: Performed By: #### L [id number] ####[facility] ([facility])[address] [place] [address] VENOUS BLOOD GAS WITH IONIZE D CALCIUMon 02-28-2024 Base excess Calc (BldV) [Moles/Vol] 3.8 mmol/L Normal [facility] Comment on above: Order Comment: Bipap 16/8 RR 14 FiO2 75% Performed By: #### L [id number] ####[facility] [id number] [place] [address] [place] CALCIUM IONIZED (MMOL/L) IN BLOOD 1.06 mmol/L Low 1.15-1.33 [facility] Comment on above: Order Comment: Bipap 16/8 RR 14 FiO2 75% Performed By: #### L [id number] ####[facility] [id number] [place] [address] [place] CO2 (BldV) [Partial pressure] 46 mm[Hg] Normal 40-50 [facility] Comment on above: Order Comment: Bipap 16/8 RR 14 FiO2 75% Performed By: #### L [id number] ####[facility] [id number] [place] [address] [place] HCO3 (Bld) [Moles/Vol] 29.2 mmol/L Normal [facility] Comment on above: Order Comment: Bipap 16/8 RR 14 FiO2 75% Performed By: #### L [id number] ####[facility] [id number] [place] [address] [place] Oxygen (BldV) [Partial pressure] 47 mm[Hg] High 35-45 [facility] Comment on above: Order Comment: Bipap 16/8 RR 14 FiO2 75% Performed By: #### L [id number] ####[facility] [id number] [place] [address] [facility] OXYGEN SATURATION (%) IN VENOUS BLOOD 78.8 % High 65.0-75.0 [facility] Comment on above: Order Comment: Bipap 16/8 RR 14 FiO2 75% Performed By: #### L [id number] ####[facility] [id number] [place] [address] [facility] PH OF VENOUS BLOOD 7.41 Normal 7.31-7.41 [facility] Comment on above: Order Comment: Bipap 16/8 RR 14 FiO2 75% Performed By: #### L [id number] ####[facility] [id number] [place] [address] [facility] 30on 02-27-2024 30 Normal [facility] 30 Normal [facility] ANESon 02-27-2024 ANES Normal [facility] ANTI-XA (HEPARIN LEVEL)on HEPARIN UNFRACTIONATED (U/ML) IN PPP BY CHROMOGENIC METHOD 0.51 IU/mL Normal 0.3-0.7 [facility] Comment on above: Result Comment: Ricarda roxaban and Apixaban will interfere with the anti Xa assay used to monitor UFH and LMWH. Performed By: #### L [id number] ####[facility] ([facility])[address] [place] [address] HEPARIN UNFRACTIONATED (U/ML) IN PPP BY CHROMOGENIC METHOD 0.28 IU/mL Low 0.3-0.7 [facility] Comment on above: Order Comment: Check anti-Xa level every 6 hours while on heparin infusion, or per protocol. Result Comment: Ricarda roxaban and Apixaban will interfere with the anti Xa assay used to monitor UFH and LMWH. Performed By: #### L [id number] ####[facility] ([facility])[address] [place] [address] HEPARIN UNFRACTIONATED (U/ML) IN PPP BY CHROMOGENIC METHOD 0.21 IU/mL Low 0.3-0.7 [facility] Comment on above: Result Comment: [place] roxaban and Apixaban will interfere with the anti Xa assay used to monitor UFH and LMWH. Performed By: #### L [id number] ####[facility] ([facility])[address] [place] [address] BASIC METABOLIC PANELon 02-12 Anion gap [Moles/Vol] 9 mmol/L Normal 7-20 [facility] Comment on above: Performed By: #### L [id number] ####[facility] ([facility])[address] [place] [address] Calcium [Mass/Vol] 8.4 mg/dL Low 8.6-10.3 [facility] Comment on above: Performed By: #### L [id number] ####[facility] ([facility])[address] [place] [address] Chloride [Moles/Vol] 105 mmol/L Normal 98-107 [facility] Comment on above: Performed By: #### L [id number] ####[facility] ([facility])[address] [place] [address] CO2 [Moles/Vol] 27 mmol/L Normal 21-31 [facility] Comment on above: Performed By: #### L [id number] ####[facility] ([facility])[address] [place] [address] Creatinine [Mass/Vol] 0.88 mg/dL Normal 0.70-1.30 [facility] Comment on above: Performed By: #### L [id number] ####[facility] ([facility])[address] [place] [address] GLOMERULAR FILTRATION RATE ML/MIN/1.73 SQ M.PREDICTED 88.0 mL/min/1.73m*2 Normal >60.0 [facility] Comment on above: Result Comment: The [facility]???s estimated glomerular filtration rate (eGFR) will [...] of individuals. Performed By: #### L [id number] ####[facility] (AKER)[address] [place] [address] Glucose [Mass/Vol] 116 mg/dL High 70-100 [facility] Comment on above: Performed By: #### L [id number] ####[facility] ([facility])[address] [place] [address] Potassium [Moles/Vol] 3.8 mmol/L Normal 3.5-5.1 [facility] Comment on above: Performed By: #### L [id number] ####[facility] ([facility])[address] [place] [address] Sodium [Moles/Vol] 137 mmol/L Normal 136-145 [facility] Comment on above: Performed By: #### L [id number] ####[facility] ([facility])[address] [place] [address] Urea nitrogen [Mass/Vol] 11 mg/dL Normal 7-25 [facility] Comment on above: Performed By: #### L [id number] ####[facility] ([facility]ER)[address] [place] [address] UREA NITROGEN/CREATININE (MASS RATIO) IN SER/PLAS 12.5 Normal [facility] Comment on above: Performed By: #### L [id number] ####[facility] ([facility])[address] [place] [address] BLOOD CULTUREon 02-27-2024 Bacteria identified Cx Nom (Bld) No growth at 5 days Normal [facility] Comment on above: Performed By: #### L [id number] ####[facility] ([facility])[address] [place] [address] CALCIUM, IONIZEDon CALCIUM IONIZED (MMOL/L) IN BLOOD 1.20 mmol/L Normal 1.15-1.33 [facility] Comment on above: Performed By: #### C ALCIUM, IONIZED ####[facility] [id number] [place] [address] [place] CBC WITH AUTO DIFFERENTIALon 02-27-2024 Basophils (Bld) [#/Vol] 0.02 10*3/uL Normal 0.00-0.20 [facility] Comment on above: Performed By: #### L [id number] ####[facility] ([facility])[address] [place] [address] Basophils/100 WBC (Bld) 0.4 % Normal 0.0-1.0 [facility] Comment on above: Performed By: #### L [id number] ####[facility] ([facility])[address] [place] [address] Eosinophils (Bld) [#/Vol] 0.03 10*3/uL Normal 0.00-0.5 0 [facility] Comment on above: Performed By: #### L [id number] ####[facility] ([facility] [place] [address] Eosinophils/100 WBC (Bld) 0.7 % Normal 0.0-6.0 [facility] Comment on above: Performed By: #### L [id number] ####[facility] ([facility] [place] [address] Erythrocyte distribution width (RBC) [Ratio] 13.1 % Normal 11.5-15.0 [facility] Comment on above: Performed By: #### L [id number] ####[facility] ([facility])[address] [place] [address] ERYTHROCYTE MEAN CORPUSCULAR HEMOGLOBIN CONCENTRATION (G/DL) BY AUTOMATED 31.8 g/dL Low 32.0-35.0 [facility] Comment on above: Performed By: #### L [id number] ####[facility] ([facility])[address] [place] [address] Hematocrit (Bld) [Volume fraction] 37.7 % Low 39.0-55.0 [facility] Comment on above: Performed By: #### L [id number] ####[facility] ([facility])[address] [place] [address] Hemoglobin (Bld) [Mass/Vol] 12.0 g/dL Low 13.0-17.0 [facility] Comment on above: Performed By: #### L [id number] ####[facility] ([facility])[address] [place] [address] Immature granulocytes (Bld) [#/Vol] 0.02 10*3/uL Normal 0.00-0.20 [facility] Comment on above: Performed By: #### L [id number] ####[facility] ([facility])[address] [place] [address] Immature granulocytes/100 WBC (Bld) 0.4 % Normal 0.0-1.0 [facility] Comment on above: Performed By: #### L [id number] ####[facility] ([facility])[address] [place] [address] IMMATURE PLATELET FRACTION % 3.0 % Normal 0.8-6.3 [facility] Comment on above: Performed By: #### L [id number] ####[facility] ([facility])[address] [place] [address] Lymphocytes (Bld) [#/Vol] 0.73 10*3/uL Low 1.20-4.0 0 [facility] Comment on above: Performed By: #### L [id number] ####[facility] ([facility])[address] [place] [address] Lymphocytes/100 WBC (Bld) 16.0 % Low 20.0-45.0 [facility] Comment on above: Performed By: #### L [id number] ####[facility] (BEAKER)[address] [place] [address] MCH (RBC) [Entitic mass] 32.1 pg Normal 27.0-33.0 [facility] Comment on above: Performed By: #### L [id number] ####[facility] (BE[facility]ER)[address] [place], [place] [address] MCV (RBC) [Entitic vol] 100.8 fL High 82.0-98.0 [facility] Comment on above: Performed By: #### L [id number] ####[facility] ([facility] [place], [place] [address] Monocytes (Bld) [#/Vol] 0.85 10*3/uL Normal 0.10-1.00 [facility] Comment on above: Performed By: #### L [id number] ####[facility] (BE[facility]ER)[address] [place], [place] [address] Monocytes/100 WBC (Bld) 18.7 % High 5.0-12.0 [facility] Comment on above: Performed By: #### L [id number] ####[facility] (BE[facility]ER)[address] [place] [address] Neutrophils (Bld) [#/Vol] 2.90 10*3/uL Normal 1.60-7.6 0 [facility] Comment on above: Performed By: #### L [id number] ####[facility] (BE[facility])[address] [place], [place] [address] Neutrophils/100 WBC (Bld) 63.8 % Normal 40.0-72.0 [facility] Comment on above: Performed By: #### L [id number] ####[facility] (BE[facility]ER)[address] [place] [address] NRBC (PER 100 WBCS) BY AUTOMATED COUNT 0.0 % Normal 0 [facility] Comment on above: Performed By: #### L [id number] ####[facility] ([facility])[address] [place] [address] PLATELETS (10*3/UL) IN BLOOD AUTOMATED COUNT 134 10*3/uL Low 150-400 [facility] Comment on above: Performed By: #### L [id number] ####[facility] ([facility])[address] [place] [address] RBC (Bld) [#/Vol] 3.74 10*6/uL Low 4.20-5.70 [facility] Comment on above: Performed By: #### L [id number] ####[facility] ([facility])[address] [place] [address] WBC (Bld) [#/Vol] 4.55 10*3/uL Normal 4.00-10.60 [facility] Comment on above: Performed By: #### L [id number] ####[facility] ([facility])[address] [place] [address] HPon 02-27-2024 HP Normal [facility] POTASSIUM, WHOLE BLOODon Potassium [Moles/Vol] 3.4 mmol/L Low 3.5-5.1 [facility] Comment on above: Performed By: #### P OTASSIUM, WHOLE BLOOD ####[facility] [id number] [place] [address] [place] SODIUM, WHOLE BLOODon 2023 SODIUM, WHOLE BLOOD 135 Low 136-145 [facility] Comment on above: Performed By: #### S ODIUM, WHOLE BLOOD ####[facility] [id number] [place] [address] [place] TROPONIN Ion 02-27-2024 Troponin I.cardiac [Mass/Vol] 0.04 ng/mL Normal 0.00-0.04 [facility] Comment on above: Performed By: #### L [id number] ####[facility] ([facility])[address] [place] [address] Troponin I.cardiac [Mass/Vol] 0.02 ng/mL Normal 0.00-0.04 [facility] Comment on above: Performed By: #### L [id number] ####[facility] ([facility])[address] [place] [address] Troponin I.cardiac [Mass/Vol] 0.01 ng/mL Normal 0.00-0.04 [facility] Comment on above: Performed By: #### L [id number] ####[facility] ([facility])[address] [place] [address] Troponin I.cardiac [Mass/Vol] 0.01 ng/mL Normal 0.00-0.04 [facility] Comment on above: Performed By: #### L [id number] ####[facility] ([facility])[address] [place] [address] Troponin I.cardiac [Mass/Vol] 0.02 ng/mL Normal 0.00-0.04 [facility] Comment on above: Performed By: #### L [id number] ####[facility] ([facility])[address] [place] [address] Troponin I.cardiac [Mass/Vol] 0.01 ng/mL Normal 0.00-0.04 [facility] Comment on above: Performed By: #### L [id number] ####[facility] ([facility])[address] [place] [address] 30on 02-26-2024 30 The patient is Moderately Stable - Low risk of patient condition declining or worsening The patient's goals for the shift include The clinical goals for the shift include Over the shift, the patient did not make progress toward the following goals. Normal [facility] ANTI-XA (HEPARIN LEVEL)on HEPARIN UNFRACTIONATED (U/ML) IN PPP BY CHROMOGENIC METHOD 0.14 IU/mL Invalid Interpretation Code 0.3-0.7 [facility] Comment on above: Result Comment: [place] roxaban and Apixaban will interfere with the anti Xa assay used to monitor UFH and LMWH. Performed By: #### L [id number] ####[facility] ([facility])[address] [place] [address] HEPARIN UNFRACTIONATED (U/ML) IN PPP BY CHROMOGENIC METHOD <0.10 Invalid Interpretation Code 0.3-0.7 [facility] Comment on above: Result Comment: [place] roxaban and Apixaban will interfere with the anti Xa assay used to monitor UFH and LMWH. Performed By: #### L [id number] ####[facility] ([facility])[address] [place] [address] APOLIPOPROTEIN B-100on 02-25 Magnesium [Mass/Vol] 50 mg/dL Low 66-133 [facility] Comment on above: Result Comment: REFE RENCE INTERVAL: Apolipoprotein BA desirable fasting serum Apo B concentration for the preventionof atherosclerotic cardiovascular disease in adults is less than90 mg/dL. A fasting serum Apo B concentration of 130 mg/dL orgreater corresponds to a LDL cholesterol concentration greaterthan 160 mg/dL and constitutes a risk enhancing factor foratherosclerotic cardiovascular disease in adults.Performed By: [employer] [place], [place] [address]Cskzdgjosv Director: Josh Olvera MD, PhDCLIA Number: [id number] Performed By: #### L [id number] ####[facility] ([facility])[address] [place] [address] APTTon 02-26-2024 ACTIVATED PARTIAL THROMBOPLASTIN TIME IN PPP BY COAGULATION ASSAY 32.6 Seconds Normal 25.0-35.0 [facility] Comment on above: Result Comment: Clin ical significance of the APTT is questionable in the presence of heparin. Performed By: #### L [id number] ####[facility] ([facility])[address] [place] [address] B-TYPE NATRIURETIC PEPTIDEon 02-26-2024 Natriuretic peptide B (Bld) [Mass/Vol] 321 pg/mL High 0-100 [facility] Comment on above: Performed By: #### L [id number] ####[facility] ([facility] [place] [address] CBC WITH AUTO DIFFERENTIALon 02-26-2024 Basophils (Bld) [#/Vol] 0.03 10*3/uL Normal 0.00-0.20 [facility] Comment on above: Performed By: #### L [id number] ####[facility] ([facility] [place] [address] Basophils/100 WBC (Bld) 0.5 % Normal 0.0-1.0 [facility] Comment on above: Performed By: #### L [id number] ####[facility] ([facility])[address] [place] [address] Eosinophils (Bld) [#/Vol] 0.04 10*3/uL Normal 0.00-0.5 0 [facility] Comment on above: Performed By: #### L [id number] ####[facility] ([facility])[address] [place] [address] Eosinophils/100 WBC (Bld) 0.6 % Normal 0.0-6.0 [facility] Comment on above: Performed By: #### L [id number] ####[facility] ([facility])[address] [place] [address] Erythrocyte distribution width (RBC) [Ratio] 12.9 % Normal 11.5-15.0 [facility] Comment on above: Performed By: #### L [id number] ####[facility] ([facility])[address] [place] [address] ERYTHROCYTE MEAN CORPUSCULAR HEMOGLOBIN CONCENTRATION (G/DL) BY AUTOMATED 31.2 g/dL Low 32.0-35.0 [facility] Comment on above: Performed By: #### L [id number] ####[facility] ([facility])[address] [place] [address] Hematocrit (Bld) [Volume fraction] 43.6 % Normal 39.0-55.0 [facility] Comment on above: Performed By: #### L [id number] ####[facility] ([facility])[address] [place] [address] Hemoglobin (Bld) [Mass/Vol] 13.6 g/dL Normal 13.0-17.0 [facility] Comment on above: Performed By: #### L [id number] ####[facility] ([facility])[address] [place] [address] Immature granulocytes (Bld) [#/Vol] 0.03 10*3/uL Normal 0.00-0.20 [facility] Comment on above: Performed By: #### L [id number] ####[facility] ([facility])[address] [place] [address] Immature granulocytes/100 WBC (Bld) 0.5 % Normal 0.0-1.0 [facility] Comment on above: Performed By: #### L [id number] ####[facility] ([facility])[address] [place] [address] Lymphocytes (Bld) [#/Vol] 0.52 10*3/uL Low 1.20-4.0 0 [facility] Comment on above: Performed By: #### L [id number] ####[facility] ([facility])[address] [place] [address] Lymphocytes/100 WBC (Bld) 8.4 % Low 20.0-45.0 [facility] Comment on above: Performed By: #### L [id number] ####[facility] ([facility])[address] [place] [address] MCH (RBC) [Entitic mass] 32.3 pg Normal 27.0-33.0 [facility] Comment on above: Performed By: #### L [id number] ####[facility] ([facility])[address] [place] [address] MCV (RBC) [Entitic vol] 103.6 fL High 82.0-98.0 [facility] Comment on above: Performed By: #### L [id number] ####[facility] ([facility])[address] [place] [address] Monocytes (Bld) [#/Vol] 0.71 10*3/uL Normal 0.10-1.00 [facility] Comment on above: Performed By: #### L [id number] ####[facility] ([facility])[address] [place] [address] Monocytes/100 WBC (Bld) 11.5 % Normal 5.0-12.0 [facility] Comment on above: Performed By: #### L [id number] ####[facility] ([facility])[address] [place] [address] Neutrophils (Bld) [#/Vol] 4.86 10*3/uL Normal 1.60-7.6 0 [facility] Comment on above: Performed By: #### L [id number] ####[facility] ([facility])[address] [place] [address] Neutrophils/100 WBC (Bld) 78.5 % High 40.0-72.0 [facility] Comment on above: Performed By: #### L [id number] ####[facility] ([facility])[address] [place] [address] NRBC (PER 100 WBCS) BY AUTOMATED COUNT 0.0 % Normal 0 [facility] Comment on above: Performed By: #### L [id number] ####[facility] ([facility])[address] [place] [address] PLATELETS (10*3/UL) IN BLOOD AUTOMATED COUNT 153 10*3/uL Normal 150-400 [facility] Comment on above: Performed By: #### L [id number] ####[facility] ([facility])[address] [place] [address] RBC (Bld) [#/Vol] 4.21 10*6/uL Normal 4.20-5.70 [facility] Comment on above: Performed By: #### L [id number] ####[facility] ([facility])[address] [place] [address] WBC (Bld) [#/Vol] 6.19 10*3/uL Normal 4.00-10.60 [facility] Comment on above: Performed By: #### L [id number] ####[facility] ([facility])[address] [place] [address] CKon 02-26-2024 CREATINE KINASE (U/L) IN SER/PLAS 94.0 U/L Normal 30.0-223.0 [facility] Comment on above: Performed By: #### L [id number] ####[facility] ([facility])[address] [place] [address] COMPREHENSIVE METABOLIC PANE Larry 02-26-2024 Albumin [Mass/Vol] 3.4 g/dL Low 3.5-5.7 [facility] Comment on above: Performed By: #### L [id number] ####[facility] ([facility])[address] [place] [address] ALP [Catalytic activity/Vol] 89 U/L Normal 34-104 [facility] Comment on above: Performed By: #### L [id number] ####[facility] ([facility])[address] [place] [address] ALT [Catalytic activity/Vol] 16 U/L Normal 7-52 [facility] Comment on above: Performed By: #### L [id number] ####[facility] ([facility])[address] [place] [address] Anion gap [Moles/Vol] 9 mmol/L Normal 7-20 [facility] Comment on above: Performed By: #### L [id number] ####[facility] ([facility])[address] [place] [address] AST [Catalytic activity/Vol] 20 U/L Normal 13-39 [facility] Comment on above: Performed By: #### L [id number] ####[facility] ([facility])[address] [place] [address] Bilirubin [Mass/Vol] 1.0 mg/dL Normal 0.3-1.0 [facility] Comment on above: Performed By: #### L [id number] ####[facility] ([facility])[address] [place] [address] Calcium [Mass/Vol] 8.6 mg/dL Normal 8.6-10.3 [facility] Comment on above: Performed By: #### L [id number] ####[facility] ([facility])[address] [place] [address] Chloride [Moles/Vol] 105 mmol/L Normal 98-107 [facility] Comment on above: Performed By: #### L [id number] ####[facility] ([facility])[address] [place] [address] CO2 [Moles/Vol] 30 mmol/L Normal 21-31 [facility] Comment on above: Performed By: #### L [id number] ####[facility] ([facility])[address] [place] [address] Creatinine [Mass/Vol] 0.90 mg/dL Normal 0.70-1.30 [facility] Comment on above: Performed By: #### L [id number] ####[facility] ([facility])[address] [place] [address] GLOMERULAR FILTRATION RATE ML/MIN/1.73 SQ M.PREDICTED 87.4 mL/min/1.73m*2 Normal >60.0 [facility] Comment on above: Result Comment: The [facility]???s estimated glomerular filtration rate (eGFR) will [...] of individuals. Performed By: #### L [id number] ####[facility] ([facility])[address] [place] [address] Glucose [Mass/Vol] 127 mg/dL High 70-100 [facility] Comment on above: Performed By: #### L [id number] ####[facility] ([facility])[address] [place] [address] Potassium [Moles/Vol] 3.4 mmol/L Low 3.5-5.1 [facility] Comment on above: Performed By: #### L [id number] ####[facility] ([facility])[address] [place] [address] Protein [Mass/Vol] 6.9 g/dL Normal 6.0-8.3 [facility] Comment on above: Performed By: #### L [id number] ####[facility] ([facility])[address] [place] [address] Sodium [Moles/Vol] 141 mmol/L Normal 136-145 [facility] Comment on above: Performed By: #### L [id number] ####[facility] ([facility])[address] [place] [address] Urea nitrogen [Mass/Vol] 14 mg/dL Normal 7-25 [facility] Comment on above: Performed By: #### L [id number] ####[facility] ([facility])[address] [place] [address] UREA NITROGEN/CREATININE (MASS RATIO) IN SER/PLAS 15.6 Normal [facility] Comment on above: Performed By: #### L [id number] ####[facility] ([facility])[address] [place] [address] CONSULTon 02-26-2024 CONSULT Normal [facility] CTA CHEST W IV CONTRASTon CTA CHEST W IV CONTRAST [facility] ETHANOL[facility] 02-26-2024 ETHANOL (MG/DL) IN SER/PLAS <10 Normal [facility] Comment on above: Performed By: #### L [id number] ####[facility] ([facility])[address] [place] [address] ETHANOL CALCULATED (%) Normal [facility] Comment on above: Performed By: #### L [id number] ####[facility] ([facility])[address] [place] [address] HEMOGLOBIN A1Con 02-26-2024 Glucose [Mass/Vol] 88 mg/dL Normal [facility] Comment on above: Performed By: #### L [id number] ####[facility] ([facility])[address] [place] [address] HbA1c (Bld) [Mass fraction] 4.7 % Normal 4.0-6.0 [facility] Comment on above: Performed By: #### L [id number] ####[facility] ([facility])[address] [place] [address] HPon 02-26-2024 HP Normal [facility] LIPID PANELon 02-26-2024 CHOL/HDL 2.5 mg/dL Normal [facility] Comment on above: Performed By: #### L [id number] ####[facility] ([facility])[address] [place] [address] Cholesterol [Mass/Vol] 93 mg/dL Low 120-200 [facility] Comment on above: Performed By: #### L [id number] ####[facility] ([facility])[address] [place] [address] Magnesium [Mass/Vol] 59 mg/dL Normal 40-149 [facility] Comment on above: Result Comment: TRIG LYCERIDE REFERENCE RANGE:20 YEARS AND OLDER CARDIOVASCULAR RISKLESS THAN 150 mg/dL LOW [id number] TO 199 mg/dL BORDERLINE [id number] mg/dL AND GREATER HIGH RISK Performed By: #### L [id number] ####[facility] ([facility])[address] [place] [address] Magnesium [Mass/Vol] 44 mg/dL Normal 0-160 [facility] Comment on above: Performed By: #### L [id number] ####[facility] ([facility])[address] [place] [address] Magnesium [Mass/Vol] 37 mg/dL Normal 23-92 [facility] Comment on above: Performed By: #### L [id number] ####[facility] ([facility])[address] [place] [address] NON HDL CHOL. (LDL+VLDL) 56 Normal [facility] Comment on above: Performed By: #### L [id number] ####[facility] ([facility])[address] [place] [address] TOTAL VLDL-C 12 mg/dL Normal 0-40 [facility] Comment on above: Performed By: #### L [id number] ####[facility] ([facility])[address] [place] [address] LIPOPROTEIN A (LPA)on 2023 Magnesium [Mass/Vol] 10 mg/dL Normal <=29 [facility] Comment on above: Result Comment: Perf ormed By: [employer] [place], [place] [address]Wunnuamzho Director: Josh Olvera MD, PhDCLIA Number: [id number] Performed By: #### L [id number] ####[facility] ([facility])[address] [place] [address] MAGNESIUMon 02-26-2024 Magnesium [Mass/Vol] 1.7 mg/dL Low 1.9-2.7 [facility] Comment on above: Performed By: #### L [id number] ####[facility] ([facility])[address] [place] [address] PHOSPHORUSon 02-26-2024 Magnesium [Mass/Vol] 3.7 mg/dL Normal 2.5-5.0 [facility] Comment on above: Performed By: #### L [id number] ####[facility] ([facility])[address] [place] [address] TOXICOLOGY PANEL URINEon AMPHETAMINE+METHAMPHETAMIN E SCREEN (PRESENCE) IN URINE Negative Normal Negative [facility] Comment on above: Performed By: #### L [id number] ####[facility] ([facility])[address] [place] [address] BARBITURATES PRESENCE IN URINE BY SCREEN METHOD Negative Normal Negative [facility] Comment on above: Performed By: #### L [id number] ####[facility] ([facility])[address] [place] [address] Benzodiazepines Ql (U) Negative Normal Negative [facility] Comment on above: Performed By: #### L [id number] ####[facility] ([facility])[address] [place] [address] CANNABINOID (PRESENCE) IN URINE BY SCREEN METHOD Negative Normal Negative [facility] Comment on above: Performed By: #### L [id number] ####[facility] ([facility])[address] [place] [address] Cocaine Ql (U) Negative Normal Negative [facility] Comment on above: Performed By: #### L [id number] ####[facility] ([facility])[address] [place] [address] METHADONE (PRESENCE) IN URINE BY SCREEN METHOD Negative Normal Negative [facility] Comment on above: Performed By: #### L [id number] ####[facility] ([facility])[address] [place] [address] OPIATES (PRESENCE) IN URINE BY SCREEN METHOD Negative Normal Negative [facility] Comment on above: Performed By: #### L [id number] ####[facility] ([facility])[address] [place] [address] PHENCYCLIDINE PRESENCE IN URINE BY SCREEN METHOD Negative Normal Negative [facility] Comment on above: Performed By: #### L [id number] ####[facility] ([facility])[address] [place] [address] Propoxyphene Screen Ql (U) Negative Normal Negative [facility] Comment on above: Performed By: #### L [id number] ####[facility] ([facility])[address] [place] [address] TRICYCLIC ANTIDEPRESSANTS (PRESENCE) IN URINE Negative Normal Negative [facility] Comment on above: Performed By: #### L [id number] ####[facility] ([facility])[address] [facility] [address] TROPONIN Ion 02-26-2024 Troponin I.cardiac [Mass/Vol] 0.02 ng/mL Normal 0.00-0.04 [facility] Comment on above: Performed By: #### L [id number] ####[facility] ([facility])[address] [place] [address] Troponin I.cardiac [Mass/Vol] 0.02 ng/mL Normal 0.00-0.04 [facility] Comment on above: Performed By: #### L [id number] ####[facility] ([facility])[address] [place] [address] Troponin I.cardiac [Mass/Vol] 0.01 ng/mL Normal 0.00-0.04 [facility] Comment on above: Performed By: #### L [id number] ####[facility] ([facility])[address] [place] [address] TSHon 02-26-2024 THYROTROPIN (MIU/L) IN SER/PLAS BY DETECTION LIMIT <= 0.05 MIU/L 1.59 mIU/L Normal 0.34-5.60 [facility] Comment on above: Performed By: #### L [id number] ####[facility] ([facility])[address] [place] [address] CBC AND AUTO DIFFon 02-22-20 24 ABSOLUTE BASOPHIL 0.0 X10E9/L Normal 0.0-0.2 [facility] Comment on above: Performed By: #### P INR, 73328-2 #### [facility] ([id number]) [address] [place] [address], [place] [address] #### CBCA, CMP #### [facility] ([id number]) [address] [facility], [address] [place] [address] ABSOLUTE NEUTROPHIL 2.3 X10E9/L Normal 1.5-6.6 [facility] Comment on above: Performed By: #### P INR, 11742-8 #### [facility] ([id number]) [address] [place] [address] #### CBCA, CMP #### [facility] ([id number]) [address], [address] [place] [address] Basophils/100 WBC (Bld) 0.7 % Normal P [facility] Comment on above: Performed By: #### P INR, 43920-7 #### [facility] ([id number]) [address] [place] [address] #### CBCA, CMP #### [facility] ([id number]) [address] [facility], [address] [place] [address] Eosinophils (Bld) [#/Vol] 0.2 10*3/uL Normal 0.0-0.4 [facility] Comment on above: Performed By: #### P INR, 55023-9 #### [facility] ([id number]) [address] [place] [address] #### CBCA, CMP #### [facility] ([id number]) [address] [facility], [address] [place] [address] Eosinophils/100 WBC (Bld) 3.8 % Normal [facility] Comment on above: Performed By: #### P INR, 16156-2 #### [facility] ([id number]) [address] [place] [address] #### CBCA, CMP #### [facility] ([id number]) [address], [address] [place] [address] Erythrocyte distribution width (RBC) [Ratio] 14.3 % Normal 11.5-15.0 [facility] Comment on above: Performed By: #### P INR, 49129-5 #### [facility] ([id number]) [address] [place] [address] #### CBCA, CMP #### [facility] ([id number]) [address] [place] [address], [address] [place] [address] Hematocrit (Bld) [Volume fraction] 42.1 % Normal 39-49 [facility] Comment on above: Performed By: #### P INR, 67505-3 #### [facility] ([id number]) [address] [place] [address] #### CBCA, CMP #### [facility] ([id number]) [address] [place] [address], [address] [place] [address] Hemoglobin (Bld) [Mass/Vol] 13.9 g/dL Normal 13.0-17.0 [facility] Comment on above: Performed By: #### P INR, 83136-9 #### [facility] ([id number]) [address] [place] [address] #### CBCA, CMP #### [facility] ([id number]) [address] [place] [address], [address] [address] Lymphocytes (Bld) [#/Vol] 1.4 10*3/uL Normal 1.0-3.5 [facility] Comment on above: Performed By: #### P INR, 64459-8 #### [facility] ([id number]) [address] [place] [address] #### CBCA, CMP #### [facility] ([id number]) [address] [place] [address], [address] [place] [address] Lymphocytes/100 WBC (Bld) 31.5 % Normal [facility] Comment on above: Performed By: #### P INR, 67013-2 #### [facility] ([id number]) [address] [place] [address] #### CBCA, CMP #### [facility] ([id number]) [address], [address] [place] [address] MCH (RBC) [Entitic mass] 32.8 pg Normal 27-34 [facility] Comment on above: Performed By: #### P INR, 24332-9 #### [facility] ([id number]) [address] [place] [address] #### CBCA, CMP #### [facility] ([id number]) [address] [facility], [address] [place] [address] MCHC (RBC) [Mass/Vol] 32.9 g/dL Normal 32-36 [facility] Comment on above: Performed By: #### P INR, 58720-0 #### [facility] ([id number]) [address] [place] [address] #### CBCA, CMP #### [facility] ([id number]) [address] [facility], [address] [place] [address] MCV (RBC) [Entitic vol] 100 fL Normal 80-100 P [facility] Comment on above: Performed By: #### P INR, 36189-4 #### [facility] ([id number]) [address] [place] [address] #### CBCA, CMP #### [facility] ([id number]) [address], [address] [place] [address] Monocytes (Bld) [#/Vol] 0.5 10*3/uL Normal 0-0.9 [facility] Comment on above: Performed By: #### P INR, 05564-0 #### [facility] ([id number]) [address] [place] [address] #### CBCA, CMP #### [facility] ([id number]) [address], [address] [place] [address] Monocytes/100 WBC (Bld) 10.8 % Normal P [facility] Comment on above: Performed By: #### P INR, 99408-5 #### [facility] ([id number]) [address] [place] [address] #### CBCA, CMP #### [facility] ([id number]) [address], [address] [place] [address] Neutrophils/100 WBC (Bld) 53.2 % Normal [facility] Comment on above: Performed By: #### P INR, 92997-7 #### [facility] ([id number]) [address] [place] [address] #### CBCA, CMP #### [facility] ([id number]) [address] [place] [address] Platelet mean volume (Bld) [Entitic vol] 9.8 fL Normal 7-12 [facility] Comment on above: Performed By: #### P INR, 52740-4 #### [facility] ([id number]) [address] [place] [address] #### CBCA, CMP #### [facility] ([id number]) [address] [place] [address] Platelets (Bld) [#/Vol] 164 10*3/uL Normal 150-450 [facility] Comment on above: Performed By: #### P INR, 20283-3 #### [facility] ([id number]) [address] [place] [address] #### CBCA, CMP #### [facility] ([id number]) [address] [place] [address] RBC COUNT 4.22 X10E12/L Normal 4.10-5.70 [facility] Comment on above: Performed By: #### P INR, 82025-4 #### [facility] ([id number]) [address] [place] [address] #### CBCA, CMP #### [facility] ([id number]) [address] [place] [address] WBC (Bld) [#/Vol] 4.3 10*3/uL Normal 4.0-11.0 [facility] Comment on above: Performed By: #### P INR, 57665-5 #### [facility] ([id number]) [address] [place] [address] 16896 #### CBCA, CMP #### [facility] ([id number]) [address], [address] [place] [address] COMPREHENSIVE METABOLIC PANE [facility] 02-22-2024 Albumin [Mass/Vol] 3.4 g/dL Normal 3.2-5.3 [facility] Comment on above: Performed By: #### P INR, 04848-1 #### [facility] ([id number]) [address] [place] [address] 69736 #### CBCA, CMP #### [facility] ([id number]) [address] [place] [address] ALP [Catalytic activity/Vol] 88 U/L Normal 39-130 [facility] Comment on above: Performed By: #### P INR, 79902-4 #### [facility] ([id number]) [address] [place] [address] 31759 #### CBCA, CMP #### [facility] ([id number]) [address] [place] [address] ALT [Catalytic activity/Vol] 15 U/L Normal 0-40 [facility] Comment on above: Performed By: #### P INR, 47293-1 #### [facility] ([id number]) [address] [place] [address] 71811 #### CBCA, CMP #### [facility] ([id number]) [address] [place] [address] Anion gap [Moles/Vol] 8 mmol/L Normal 5-15 [facility] Comment on above: Performed By: #### P INR, 77916-2 #### [facility] ([id number]) [address] [place] [address] 79373 #### CBCA, CMP #### [facility] ([id number]) [address] [place] [address] AST [Catalytic activity/Vol] 21 U/L Normal 0-41 [facility] Comment on above: Performed By: #### P INR, 74024-5 #### [facility] ([id number]) [address] [place] [address] 04824 #### CBCA, CMP #### [facility] ([id number]) [address] [place] [address] Bilirubin [Mass/Vol] 0.5 mg/dL Normal 0.3-1.2 [facility] Comment on above: Performed By: #### P INR, 77996-5 #### [facility] ([id number]) [address] [place] [address] 21896 #### CBCA, CMP #### [facility] ([id number]) [address] [place] [address] Calcium [Mass/Vol] 8.9 mg/dL Normal 8.5-10.5 [facility] Comment on above: Performed By: #### P INR, 37886-3 #### [facility] ([id number]) [address] [place] [address] 21135 #### CBCA, CMP #### [facility] ([id number]) [address] [place] [address] Chloride [Moles/Vol] 109 mmol/L Normal 98-109 [facility] Comment on above: Performed By: #### P INR, 41068-8 #### [facility] ([id number]) [address] [place] [address] 30916 #### CBCA, CMP #### [facility] ([id number]) [address] [facility], [address] [place] [address] CO2 [Moles/Vol] 26 mmol/L Normal 22-32 [facility] Comment on above: Performed By: #### P INR, 16981-6 #### [facility] ([id number]) [address] [place] [address] 75363 #### CBCA, CMP #### [facility] ([id number]) [address] [facility], [address] [place] [address] Creatinine [Mass/Vol] 0.80 mg/dL Normal 0.60-1.30 [facility] Comment on above: Result Comment: METH OD TRACEABLE TO IDMS STANDARD Performed By: #### P INR, 02270-5 #### [facility] ([id number]) [address] [place] [address] 23227 #### CBCA, CMP #### [facility] ([id number]) [address] [place] [address] eGFR (CKD-EPI) NON-RACE DEPENDENT >90 Normal >59 [facility] Comment on above: Result Comment: Reported eGFR is based on the CKD-EPI 1 equation that does not use a race coefficient. Performed By: #### P INR, 35200-5 #### [facility] ([id number]) [address] [place] [address] 86835 #### CBCA, CMP #### [facility] ([id number]) [address] [place] [address] Glucose [Mass/Vol] 106 mg/dL High 65-99 [facility] Comment on above: Performed By: #### P INR, 58565-1 #### [facility] ([id number]) [address] [place] [address] 32164 #### CBCA, CMP #### [facility] ([id number]) [address] [facility], [address] [place] [address] Potassium [Moles/Vol] 3.4 mmol/L Low 3.5-5.0 [facility] Comment on above: Performed By: #### P INR, 47789-1 #### [facility] ([id number]) [address] [place] [address] 27439 #### CBCA, CMP #### [facility] ([id number]) [address] [facility], [address] [place] [address] Protein [Mass/Vol] 6.8 g/dL Normal 6.0-8.0 [facility] Comment on above: Performed By: #### P INR, 80116-9 #### [facility] ([id number]) [address] [place] [address] 47397 #### CBCA, CMP #### [facility] ([id number]) [address] [place] [address] Sodium [Moles/Vol] 143 mmol/L Normal 134-146 [facility] Comment on above: Performed By: #### P INR, 55867-4 #### [facility] ([id number]) [address] [place] [address] 05155 #### CBCA, CMP #### [facility] ([id number]) [address] [facility], [address] [place] [address] Urea nitrogen [Mass/Vol] 15 mg/dL Normal 5-27 [facility] Comment on above: Performed By: #### P INR, 34641-2 #### [facility] ([id number]) [address] [place] [address] 24367 #### CBCA, CMP #### [facility] ([id number]) [address] [facility], [address] [place] [address] PROTIME AND INRon 02-22-2024 INR Coag (PPP) [Relative time] 1.2 {INR} High 0.8-1.1 [facility] Comment on above: Performed By: #### P INR, 45516-4 #### [facility] ([id number]) [address] [place] [address] 25470 #### CBCA, CMP #### [facility] ([id number]) [address] [facility] [facility] [address], [address] [place] [address] PT Coag (PPP) [Time] 14.1 s High 9.8-13.2 [facility] Comment on above: Result Comment: NEW REFERENCE RANGE Performed By: #### P INR, 60128-0 #### [facility] ([id number]) [address] [place] [address] 79997 #### CBCA, CMP #### [facility] ([id number]) [address] [facility], [address] [place] [address] aPTT Coag (PPP) [Time]on aPTT Coag (Bld) [Time] 39 s High 26-37 [facility] Comment on above: Result Comment: NEW REFERENCE RANGE Performed By: #### P INR, 38961-1 #### [facility] ([id number]) [address] [place] [address] 80467 #### CBCA, CMP #### [facility] ([id number]) [address] [facility] [facility] [address] [place] [address] NURSNOTEon 02-19-2024 NURSNOTE Normal [facility] HPon 02-09-2024 HP Normal [facility] 36on 02-08-2024 36 Normal [facility] Vital Signs Date Time Vital Sign Value Performing Clinician Facility 07-04-2024 15:51-0500 Body temperature 97.81 [degF] Ru Schwarz MD Work Phone: [facility] 07-04-2024 15:51-0500 Diastolic blood pressure 59 mm[Hg] Ru Schwarz MD Work Phone: [facility] 07-04-2024 15:51-0500 Heart rate 62 /min Ru Schwarz MD Work Phone: [facility] 07-04-2024 15:51-0500 Respiratory rate 19 /min Ru Schwarz MD Work Phone: [facility] 07-04-2024 15:51-0500 SaO2% (BldA) [Mass fraction] 94 % Ru Schwarz MD Work Phone: [facility] 07-04-2024 15:51-0500 Systolic blood pressure 122 mm[Hg] Ru Schwarz MD Work Phone: [facility] 07-04-2024 04:36-0500 Body mass index (BMI) [Ratio] 30.08 kg/m2 Ru Schwarz MD Work Phone: [facility] 07-04-2024 04:36-0500 Body weight 100.6 kg Ru Schwarz MD Work Phone: [facility] 06-29-2024 12:17-0500 Body height 182.9 cm Ru Schwarz MD Work Phone: [facility] Encounters Encounter Date Encounter Type Care Provider Facility Start: 01-06-2025 End: 01-06-2025 ambulatory [facility] Start: 01-01-2025 ambulatory FRANCISCO RUBIN [facility] Start: 12-19-2024 End: 12-19-2024 ambulatory [facility] Start: 12-09-2024 End: 12-09-2024 [facility]: 11-29-2024 End: 11-29-2024 ambulatory [facility] Start: 11-25-2024 ambulatory [facility] Start: 11-25-2024 Encounter for preprocedural cardiovascular examination [facility] Start: 11-18-2024 End: 11-18-2024 ambulatory [facility] Start: 11-12-2024 End: 11-13-2024 ambulatory [facility] Start: 10-30-2024 End: 11-01-2024 ambulatory [facility] Start: 10-17-2024 ambulatory [facility] Start: 10-08-2024 ambulatory [facility] Start: 09-04-2024 End: 09-04-2024 ambulatory [facility] Start: 08-30-2024 End: 08-30-2024 ambulatory ABE FERNÁNDEZ [facility] Start: 08-29-2024 End: 08-29-2024 ambulatory Kelvin Langston Facility:[facility] Start: 08-29-2024 End: 08-29-2024 Departed Referred Kelvin Langston MD Work Phone: [facility] Start: 08-28-2024 ambulatory [facility] Start: 08-27-2024 ambulatory [facility] Start: 08-09-2024 End: 08-09-2024 [facility]: 08-01-[facility]24 ambulatory [facility] Start: 08-01-2024 ambulatory [facility] Start: 07-19-2024 End: 07-19-2024 ambulatory [facility] Start: 07-16-2024 End: 07-16-2024 ambulatory [facility] Start: 07-09-2024 End: 07-10-2024 Emergency department patient visit [facility] Start: 07-08-2024 End: 07-08-2024 ambulatory [facility] Start: 07-05-2024 End: 07-06-2024 Emergency department patient visit [facility] Start: 07-05-2024 End: 07-05-2024 Telephone encounter Angela Owusu [facility] Amparo silva Comment on above: Blood in Urine Start: 07-02-2024 End: 07-02-2024 ambulatory [facility] Start: 06-29-2024 End: 07-04-2024 Evaluation and management of inpatient Antoine Burleson Do, MD Work Phone: [facility] - GEN 2 Acute Comment on above: Fall in home, initia l encounter (Primary Dx); Acute blood loss anemia Start: 06-28-2024 End: 06-29-2024 Emergency department patient visit [facility] Start: 06-26-2024 Emergency department patient visit [facility] Start: 06-26-2024 End: 06-26-2024 Emergency department patient visit [facility] Start: 06-19-2024 End: 06-19-2024 ambulatory [facility] Start: 05-30-2024 ambulatory [facility] Start: 05-21-2024 End: 05-21-2024 ambulatory [facility] Start: 05-21-2024 End: 05-21-2024 ambulatory OBI [facility] Start: 05-15-2024 End: 05-15-2024 ambulatory Kelvin Langston [facility] Work Phone: Start: 05-15-2024 End: 05-15-2024 Departed Referred Kelvin Langston MD Work Phone: [facility] Start: 05-06-2024 ambulatory [facility] Start: 05-06-2024 ambulatory [facility] Start: 04-30-2024 End: 04-30-2024 ambulatory [facility] Start: 04-24-2024 End: 04-24-2024 ambulatory [facility] Start: 04-19-2024 End: 04-19-2024 ambulatory [facility] Start: 04-02-2024 End: 04-03-2024 ambulatory [facility] Start: 03-13-2024 End: 03-14-2024 ambulatory [facility] Start: 03-05-2024 Evaluation and manag ement of inpatient [facility] Start: 03-01-2024 Evaluation and manag ement of inpatient [facility] Start: 02-28-2024 Evaluation and manag ement of inpatient [facility] Start: 02-28-2024 Evaluation and manag ement of inpatient [facility] Start: 02-27-2024 Evaluation and manag ement of inpatient [facility] Start: 02-27-2024 Evaluation and manag ement of inpatient [facility] Start: 02-26-2024 Evaluation and manag ement of inpatient [facility] Start: 02-26-2024 Evaluation and manag ement of inpatient [facility] Start: 02-26-2024 Evaluation and manag ement of inpatient [facility] Start: 02-26-2024 End: 02-26-2024 ambulatory [facility] Start: 02-26-2024 End: 03-06-2024 Evaluation and management of inpatient SAILAJA YOUNGBLOOD [facility] Start: 02-22-2024 End: 02-22-2024 ambulatory [facility] Start: 02-09-2024 End: 02-09-2024 ambulatory [facility] Start: 02-09-2024 End: 02-09-2024 ambulatory [facility] Start: 02-09-2024 End: 02-09-2024 ambulatory [facility] Start: 01-10-2024 End: 01-10-2024 ambulatory RANDOLPH [facility] Start: 12-29-2023 ambulatory [facility] Facility:[facility] Start: 12-26-2023 End: 12-26-2023 ambulatory TABITHA LEUNG Facility:[facility] Soriano Start: 12-26-2023 End: 12-26-2023 Patient encounter procedure TABITHA LEUNG [facility] Start: 12-19-2023 ambulatory [facility] Facility:[facility] Start: 12-12-2023 End: 12-13-2023 ambulatory [facility] Facility:[id number] Start: 12-12-2023 End: 12-12-2023 ambulatory [facility] Facility:CD:[id number] Procedures Date Procedure Procedure Detail Performing Clinician Start: 12-09-2024 Follow-up visit ABE FERNÁNDEZ Start: 11-29-2024 Follow-up visit ABE FERNÁNDEZ Start: 11-18-2024 Follow-up visit ABE FERNÁNDEZ Start: 11-12-2024 Follow-up visit ABE FERNÁNDEZ Start: 10-30-2024 Follow-up visit ABE FERNÁNDEZ Start: 08-28-2024 Follow-up visit ABE FERNÁNDEZ Start: 07-04-2024 Gluc bld gluc mntr d ev cleared fda spec home use Ru Schwarz MD Work Phone: Start: 07-04-2024 Basic metabolic pane l calcium total Ingrid J Valdo-Jennifer PA Work Phone: Start: 07-04-2024 Gluc bld [...] metabolic pane l calcium total Ingrid J Valdo-Jennifer PA Work Phone: Start: 07-03-2024 End: 07-03-2024 [...] Basic metabolic pane l calcium total Ingrid Orlando Paniagua PA Work Phone: Start: 07-01-2024 Gluc bld [...] Start: 06-30-2024 Blood count hematocrit Ingrid Perry Arcelia PA Work Phone: Start: 06-30-2024 Gluc bld gluc mntr d ev cleared fda spec home use Ru Schwarz MD Work Phone: Start: 06-30-2024 RESP ARTERIAL LINE SETUP Wilberto Loomis MD Work Phone: Start: 06-30-2024 End: 06-30-2024 Basic metabolic panel calcium total Ingrid Perry Arcelia PA Work Phone: Start: 06-30-2024 End: 06-30-2024 [...] Phone: Start: 06-29-2024 Blood count hematocrit Ingrid Perry Arcelia PA Work Phone: Start: 06-29-2024 Gluc bld gluc mntr d ev cleared fda spec home use Ru Schwarz MD Work Phone: Start: 06-29-2024 End: 06-29-2024 TRANSFUSE RED BLOOD CELLS Shar garcia MD Work Phone: Start: 06-29-2024 RESP ARTERIAL LINE SETUP Wilberto Loomis MD Work Phone: Start: 06-29-2024 Blood count hematocrit Ingrid Perry Arcelia PA Work Phone: Start: 06-29-2024 End: 06-29-2024 TRANSFUSE RED BLOOD CELLS Fransico Villagomez MD Work Phone: Start: 06-29-2024 Gluc bld gluc mntr d ev cleared fda spec home use Ru Schwarz MD Work Phone: Start: 06-29-2024 REPEATED ABORH Ingrid Orlando Ticchi-Junkins PA Work Phone: Start: 06-29-2024 End: 06-29-2024 Basic metabolic panel calcium total Ingrid Orlando Ticchi-Junkins PA Work Phone: Start: 06-29-2024 Antibody screen Ru Schwarz MD Work Phone: Start: 06-29-2024 Culture bacterial quanttative colony count urine Ingrid Orlando Ticchi-Junkins PA Work Phone: Start: 06-29-2024 Urnls dip stick/tabl et rgnt auto w/o microscopy Ingrid Orlando Ticchi-Junkins PA Work Phone: Start: 06-29-2024 Adult depression scr eening assessment Angela Owusu Start: 06-29-2024 Radiologic exam ches t single view Ingrid Orlando Ticchi-Junkins PA Work Phone: Start: 06-29-2024 End: 06-29-2024 Comprehensive metabolic panel Ingrid Perry Ticchi-Junkins PA Work Phone: Start: 06-29-2024 Ethanol [Mass/volume ] in Serum or Plasma Ingrid Orlando Ticchi-Junkins PA Work Phone: Start: 06-29-2024 End: 06-29-2024 Blood typing serologic abo Ingrid Orlando Ticchi-Junkins PA Work Phone: Start: 06-29-2024 CROSSMATCH RBC Ingrid Orlando Ticchi-Junkins PA Work Phone: Start: 06-29-2024 REPEATED ABORH Ingrid Orlando Ticchi-Junkins PA Work Phone: Start: 04-24-2024 Follow-up visit ABE FERNÁNDEZ Start: 04-02-2024 Follow-up visit ABE FERNÁNDEZ Start: 03-13-2024 Follow-up visit ABE FERNÁNDEZ Start: 02-09-2024 Follow-up visit ABE FERNÁNDEZ Start: 01-10-2024 Follow-up visit ABE FERNÁNDEZ Plan of Treatment Date Care Activity Detail Author Start: 06-29-2025 Depression Screening Depression Screening [facility] Start: 06-29-2025 Tobacco Screening Tobacco Screening [facility] Start: 08-29-2024 Bacteria identified in Urine by Culture Urine Culture [facility] Start: 08-29-2024 Urine culture [facility] Start: 05-15-2024 Bacteria identified in Urine by Culture Urine Culture [facility] Start: 05-15-2024 Urine culture [facility] Start: 01-14-2024 Influenza vaccination Influenza Vaccine [facility] Start: 2010 Fall Risk Screening Fall Risk Screening [facility] Start: 08-19-1995 Administration of varicella zoster vaccine Zoster (Shingles) Vaccine (1 of 2) [facility] Start: 1964 DTaP,Tdap and Td Vaccines (1 - Tdap) DTaP,Tdap and Td Vaccines (1 - Tdap) [facility] Immunizations Immunization Date Immunization Notes Care Provider Landon kirkpatrick 06-29-2024 pneumococcal conj. 20-valent (PREVNAR-20) vaccine 0.5 mL Ru Schwarz MD Work Phone: [facility] 06-29-2024 flu vacc [id number] 6 mos up(PF) (FLULAVAL/FLUZONE/FLUAR IX TRIV) injection syringe 0.5 mL Ru Schwarz MD Work Phone: [facility] Payers Date Payer Category Payer Self-pay 2023 Medicare HMO [employer] [id number] 2021 Unknown [id number] 1945 Unknown [id number] 1945 Unknown [id number] 2.16.840.1.816343.3.579.2.727 1945 Unknown [id number] 2.16.840.1.783090.3.579.2.727 1945 Unknown [id number] 2.16840.1.981629.3.579.2.727 1945 Unknown [id number] 2.16840.1.953423.3.579.2.727 1945 Unknown [id number] 2.16.840.1.637560.3.579.2.128 6 1945 Unknown [id number] 2.16.840.1.270434.3.579.2.128 6 1945 Unknown [id number] 2.16840.1.976310.3.579.2.128 6 1945 Unknown [id number] 2.16840.1.643413.3.579.2.128 6 1945 Unknown [id number] 2.16.840.1.641906.3.579.2.128 6 1945 Unknown [id number] 2.16.840.1.547498.3.579.2.128 6 1945 Unknown [id number] 2.16.840.1.901480.3.579.2.128 6 1945 Unknown [id number] 2.16.840.1.318174.3.579.2.128 6 1945 Unknown [id number] 2.16.840.1.722918.3.579.2.128 6 Unknown [id number] 2.16.840.1.655301.3.579.2.531 Unknown [id number] 2.16.840.1.720050.3.579.2.531 Social History Date Type Detail Facility Tobacco smoking status [facility] Start: 06-29-2024 End: 07-05-2024 Sex Assigned At Male [facility] Tobacco smoking stat [facility] Unknown if ever smoked [facility] Work Phone: Start: 05-16-2024 End: 08-31-2024 Sex Male (finding) [facility] Start: 1945 Sex Assigned At Male F [facility] Start: 06-28-2024 [facility] End: 05-15-2008 History of tobacco use Current smoker [facility] End: 05-15-2008 History of tobacco use Cigarette Smoker [facility] Start: 06-28-2024 Tobacco use and exposure Smokeless tobacco non-user [facility] Start: 06-29-2024 Alcoholic beverage intake Ex-drinker (finding) [facility] Start: 06-29-2024 End: 07-05-2024 History of Social function [facility] Has the [employer], or [employer] threatened to shut off services in your home in past 12Mo No [facility] Adolescent depressio n screening assessment 2 [facility] Start: 1945 Sex assigned at Not on file P [facility] Goals Date Patient Goal Desired Activity /State Personal health goal Comment on above: Formatting of this n ote might be different from the original. Evaluation of progress towards goal: home with son and daughter in law Functional Status Date Assessment [facility] Status Date Assessment Result [facility] Notes 01-10-2024 to 01-06-2025 Telephone Encounter - Angela Owusu - 07/05/2024 7:30 PM ESTTelephone Encounter - Angela Owusu - 07/05/2024 7:30 PM ESTTelephone Encounter - Angela Owusu - 07/05/2024 7:30 PM ESTAppointments Note Date & Type Note Facility 01-06-2025 Note [facility] 12-09-2024 Note [facility] 11-29-2024 Note [facility] 11-18-2024 Note [facility] 11-12-2024 Note [facility] 11-12-2024 Note [facility] 10-30-2024 Note [facility] 10-30-2024 Note [facility] 10-17-2024 Note [facility] 10-17-2024 Note Renal us [facility] 09-04-2024 Note Renal condition is i mproving with treatment. Regular aerobic exercise. Renal condition will be reassessed in 1 month. No associated orders from this encounter found during lookback period of 72 hours. [facility] 09-04-2024 Note [facility] 09-04-2024 Note H&P reviewed. The maria a garcia was examined and there are no changes to the H&P. [facility] 08-29-2024 Note [facility] asking for revised order as diagnosis code did not pass medical necessity. [facility] 08-28-2024 Note [facility] 07-19-2024 Note [facility] 07-05-2024 Miscellaneous Notes Contract: 195 re [employer] for Patient Call was connected to Dr Santa griffin documented in this encounter [facility] 07-05-2024 Telephone encounter Note Contract: 195 re [employer] for Patient [facility] 07-05-2024 Telephone encounter Note Call was connected to Dr Santa griffin [facility] 07-04-2024 Nurse Note 1545 Report called to RAS Martinez at [facility]. Confirmed clam picker time from PTN, ontime. Pt updated. IV removed. 1715: Report given to transport team. Pt discharged in stable condition. [facility] 07-04-2024 Nurse Note 1545 Report called to RAS Martinez at [facility]. Confirmed clam picker time from PTN, ontime. Pt updated. IV removed. 1715: Report given to transport team. Pt discharged in stable condition. Pt pulse ox at 84%, pt placed on 2 liters of oxygen, notified patients nurse Ligia Soliz Rn of 02 placement. Pt resting quietly. documented in this encounter [facility] 07-04-2024 Plan of care note Problem: Pain Goal: Patient goal is pain score less than 4, able to rest, and participant in treatment plan as appropriate Description: INTERVENTIONS: 1. Encourage patient or legal petroleum products sales representative to report early pain and ask [...] per policy 9. Teach patient or legal petroleum products sales representative interventions for comforting Outcome: Adequate for [...] at the bedside 7. Instruct patient/ patient petroleum products sales representative about use of safety devices 8. Include patient/ patient petroleum products sales representative in decisions related to safety Outcome: Adequate for Discharge Note: Evaluation of progress towards goal: Pt will remain free from injury Problem: Moderate - High Risk Fall Score Description: [place] Fall Score of =/> 25 or indicated by [facility] Assessment Goal: Patient should be free from fall Description: Interventions: 1. [place] to environment 2. Hourly rounds addressing the [...] non-skid footwear 11. Teach patient and patient petroleum products sales representative to maintain environment for safety and [...] (cane, walker) within reach 19. Request patient petroleum products sales representative bring adaptive equipment/mobility aids from home or obtain and provide as needed 20. Consult pharmacy regarding effects of med's affecting mobility, cognition, and alternatives 21. Obtain physician order for PT if risk factors associated with mobility are present 22. Obtain physician order for OT as appropriate 23. Utilize diversional activities 24. Educate patient and patient petroleum products sales representative how to maintain a safe environment during visitation times (notify nurse prior to leaving bedside) 25. Consider appropriateness of medical or non-medical sales 26. Set up voiding schedule as appropriate (every 2 hours) Outcome: Adequate for Discharge Note: Evaluation of progress towards goal: Remain free from falls [facility] [employer] 07-04-2024 Miscellaneous Notes Problem: Pain Goal: Patient goal is pain score less than 4, able to rest, and participant in treatment plan as appropriate Description: INTERVENTIONS: 1. Encourage patient or legal petroleum products sales representative to report early pain and ask [...] per policy 9. Teach patient or legal petroleum products sales representative interventions for comforting Outcome: Adequate for [...] at the bedside 7. Instruct patient/ patient petroleum products sales representative about use of safety devices 8. Include patient/ patient petroleum products sales representative in decisions related to safety Outcome: Adequate for Discharge Note: Evaluation of progress towards goal: Pt will remain free from injury Problem: Moderate - High Risk Fall Score Description: [place] Fall Score of =/> 25 or indicated by [facility] Assessment Goal: Patient should be free from fall Description: Interventions: 1. [place] to environment 2. Hourly rounds addressing the [...] non-skid footwear 11. Teach patient and patient petroleum products sales representative to maintain environment for safety and [...] (cane, walker) within reach 19. Request patient petroleum products sales representative bring adaptive equipment/mobility aids from home or obtain and provide as needed 20. Consult pharmacy regarding effects of med's affecting mobility, cognition, and alternatives 21. Obtain physician order for PT if risk factors associated with mobility are present 22. Obtain physician order for OT as appropriate 23. Utilize diversional activities 24. Educate patient and patient petroleum products sales representative how to maintain a safe environment during visitation times (notify nurse prior to leaving bedside) 25. Consider appropriateness of medical or non-medical sales 26. Set up voiding schedule as appropriate (every 2 hours) Outcome: Adequate for Discharge Note: Evaluation of progress towards goal: Remain free from falls DISCHARGE PLANNING NOTE Case discussed in daily transition rounds and chart reviewed by CN. 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 HENS complete. CRF in dc packet and sent to [facility]. Patient aware of dc at 4p as well. CN will continue to follow and is available should any further needs arise. - Julisa Del Toro RN 07/04/24 11:25 AM Problem: Pain Goal: Patient goal is pain score less than 4, able to rest, and participant in treatment plan as appropriate Description: INTERVENTIONS: 1. Encourage patient or legal petroleum products sales representative to report early pain and ask [...] per policy 9. Teach patient or legal petroleum products sales representative interventions for comforting Outcome: Progressing Note: [...] at the bedside 7. Instruct patient/ patient petroleum products sales representative about use of safety devices 8. Include patient/ patient petroleum products sales representative in decisions related to safety Outcome: [...] hygiene technique. 7. Identify and instruct patient/patient petroleum products sales representative in use of appropriate isolation precautions for identified infection/symptoms. 8. Provide and discuss with patient/patient petroleum products sales representative on educational MDRO sheet. 9. Encourage and monitor nutritional status daily and consult marble polisher hand if indicated. 10. Implement neutropenic guidelines as needed. Outcome: Progressing Note: Evaluation of progress towards goal: Pt is afebrile and will remain free from signs of infection during shift. Labs and PIV insertion site being monitored Problem: Knowledge Deficit Goal: Patient/patient petroleum products sales representative demonstrates understanding of disease process, treatment [...] goal: Discharge planning in process. Plan is [facility] Problem: Potential for Compromised Skin Integrity Goal: [...] supplement as ordered 13. Collaborate with clinical marble polisher hand 14. Include patient/ patient's petroleum products sales representative in decisions related to nutrition Outcome: Progressing Note: Evaluation of progress towards goal: pt is consuming an adequate amt of meals Problem: Moderate - High Risk Fall Score Description: [place] Fall Score of =/> 25 or indicated by [facility] Assessment Goal: Patient should be free from fall Description: Interventions: 1. [place] to environment 2. Hourly rounds addressing the [...] non-skid footwear 11. Teach patient and patient petroleum products sales representative to maintain environment for safety and [...] (cane, walker) within reach 19. Request patient petroleum products sales representative bring adaptive equipment/mobility aids from home or obtain and provide as needed 20. Consult pharmacy regarding effects of med's affecting mobility, cognition, and alternatives 21. Obtain physician order for PT if risk factors associated with mobility are present 22. Obtain physician order for OT as appropriate 23. Utilize diversional activities 24. Educate patient and patient petroleum products sales representative how to maintain a safe environment during visitation times (notify nurse prior to leaving bedside) 25. Consider appropriateness of medical or non-medical sales 26. Set up voiding schedule as appropriate [...] DISCHARGE PLANNING NOTE 4:30pm Rescheduled to 4pm 225 per SW request. Ambulette transport via PTN confirmed in [facility] to [facility] 07.04.24 at 12:00pm DISCHARGE PLANNING NOTE Prior Auth approved for admission to : [facility]/ [facility], [place], [place] (P# ; F# ) Approval # [id number] Valid for Dates: 07/03/2024-07/09/2024 Problem: Pain Goal: Patient goal is pain score less than 4, able to rest, and participant in treatment plan as appropriate Description: INTERVENTIONS: 1. Encourage patient or legal petroleum products sales representative to report early pain and ask [...] per policy 9. Teach patient or legal petroleum products sales representative interventions for comforting Outcome: Adequate for [...] at the bedside 7. Instruct patient/ patient petroleum products sales representative about use of safety devices 8. Include patient/ patient petroleum products sales representative in decisions related to safety Outcome: Adequate for Discharge Note: Evaluation of progress towards goal: Patient safety maintained during shift with use of 5 rights, patient and staff using hygiene, patient environment free of harm and debrie. Will continue to monitor during shift. Problem: Knowledge Deficit Goal: Patient/patient petroleum products sales representative demonstrates understanding of disease process, treatment [...] Score of =/> 25 or indicated by [facility] Assessment Goal: Patient should be free from fall Description: Interventions: 1. [place] to environment 2. Hourly rounds addressing the [...] non-skid footwear 11. Teach patient and patient petroleum products sales representative to maintain environment for safety and [...] (cane, walker) within reach 19. Request patient petroleum products sales representative bring adaptive equipment/mobility aids from home or obtain and provide as needed 20. Consult pharmacy regarding effects of med's affecting mobility, cognition, and alternatives 21. Obtain physician order for PT if risk factors associated with mobility are present 22. Obtain physician order for OT as appropriate 23. Utilize diversional activities 24. Educate patient and patient petroleum products sales representative how to maintain a safe environment during visitation times (notify nurse prior to leaving bedside) 25. Consider appropriateness of medical or non-medical sales 26. Set up voiding schedule as appropriate [...] a return call to review accepting SNF. SW called Ashok barroso again and left voicemail asking for return call. - FALLON ASHFORD 07/03/24 2:49 PM SW received return call from ashok barroso. Ashok would like auth to be started with [facility]. SW tasked [facility] to start auth. - FALLON ASHFORD 07/03/24 3:03 PM SW informed patient of DC tomorrow. SW also called patient son of discharge tomorrow at 4pm. SW tasked [facility] to set up transport. - FALLON ASHFORD 07/03/24 3:53 PM Problem: Pain Goal: Patient goal is pain score less than 4, able to rest, and participant in treatment plan as appropriate Description: INTERVENTIONS: 1. Encourage patient or legal petroleum products sales representative to report early pain and ask [...] per policy 9. Teach patient or legal petroleum products sales representative interventions for comforting Outcome: Progressing Note: [...] at the bedside 7. Instruct patient/ patient petroleum products sales representative about use of safety devices 8. Include patient/ patient petroleum products sales representative in decisions related to safety Outcome: [...] hygiene technique. 7. Identify and instruct patient/patient petroleum products sales representative in use of appropriate isolation precautions for identified infection/symptoms. 8. Provide and discuss with patient/patient petroleum products sales representative on educational MDRO sheet. 9. Encourage and monitor nutritional status daily and consult marble polisher hand if indicated. 10. Implement neutropenic guidelines as needed. Outcome: Progressing Note: Evaluation of progress towards goal: patient remains afebrile, will continue to monitor labs Problem: Knowledge Deficit Goal: Patient/patient petroleum products sales representative demonstrates understanding of disease process, treatment [...] supplement as ordered 13. Collaborate with clinical marble polisher hand 14. Include patient/ patient's petroleum products sales representative in decisions related to nutrition Outcome: [...] be free from fall Description: Interventions: 1. [place] to environment 2. Hourly rounds addressing the [...] non-skid footwear 11. Teach patient and patient petroleum products sales representative to maintain environment for safety and [...] (cane, walker) within reach 19. Request patient petroleum products sales representative bring adaptive equipment/mobility aids from home or obtain and provide as needed 20. Consult pharmacy regarding effects of med's affecting mobility, cognition, and alternatives 21. Obtain physician order for PT if risk factors associated with mobility are present 22. Obtain physician order for OT as appropriate 23. Utilize diversional activities 24. Educate patient and patient petroleum products sales representative how to maintain a safe environment during visitation times (notify nurse prior to leaving bedside) 25. Consider appropriateness of medical or non-medical sales 26. Set up voiding schedule as appropriate (every 2 hours) Outcome: Progressing Note: Evaluation of progress towards goal: patient remains free from falls Physical Therapy Evaluation Discharge Recommendations PT Recommendations: Shelter Facility SNF/ECF Comments: Recommend SNF as pt [...] 6 Clicks: Basic Mobility Raw Score: 13 [facility] G Code Modifier: CK Therapy Plan [...] lithotripsy and stent placed on 06/19/24 at [facility]. Past Medical History: Diagnosis Date Cardiac arrest [place] 02/2024 Coronary artery disease Dementia ([facility]) Fall in home, initial encounter 06/29/2024 Hemorrhoids Hyperlipidemia Hypertension Kidney stone Memory loss Myocardial infarction ([facility]) Urinary tract infection History reviewed. No pertinent [...] ok for PT/OT--OOB. Equipment: gait belt, RW Telemetry/Supervisor Inspection Room: Yes Oxygen Order : SpO2 90% or [...] Goal: Patient will perform transfers with Modified [place] Dates: Start: 07/02/24 Expected End: 07/25/24 Description: Goal Description: Disciplines: PT Physical Therapy Care Plan (Resolved) There are no resolved problems. Principal Problem: Fall in home, initial encounter Occupational Therapy Evaluation Discharge Recommendations OT Recommendations : Shelter Facility SNF/ECF Comments: recommend SNF at discharge [...] little Scoring Daily Activity Raw Score: 13 [facility] G Code Modifier: CL Pt admit 06/29/24 after fall from standing. Pt hypotensive on arrival s/p 3 units of PRBC. Dx: L renal hematoma, hypotension, acute blood loss anemia Urology consulted. Pt with hematuria, maintain jorgensen catheter. Pt with h/o lithotripsy with stent placement at [facility] on 06/19/24 Past Medical History: Diagnosis Date Cardiac arrest ([facility]) 02/2024 Coronary artery disease Dementia ([facility]) Fall in home, initial encounter 06/29/2024 Hemorrhoids Hyperlipidemia Hypertension Kidney stone Memory loss Myocardial infarction ([facility]) Urinary tract infection History reviewed. No pertinent [...] mobility guideline:yes, pass Equipment: gait belt, RW Telemetry/Supervisor Inspection Room: Yes Oxygen Order : spo2 90% or [...] Description: INTERVENTIONS: 1. Encourage patient or legal petroleum products sales representative to report early pain and ask [...] per policy 9. Teach patient or legal petroleum products sales representative interventions for comforting Outcome: Progressing Note: [...] at the bedside 7. Instruct patient/ patient petroleum products sales representative about use of safety devices 8. Include patient/ patient petroleum products sales representative in decisions related to safety Outcome: [...] hygiene technique. 7. Identify and instruct patient/patient petroleum products sales representative in use of appropriate isolation precautions for identified infection/symptoms. 8. Provide and discuss with patient/patient petroleum products sales representative on educational MDRO sheet. 9. Encourage and monitor nutritional status daily and consult marble polisher hand if indicated. 10. Implement neutropenic guidelines as needed. Outcome: Progressing Note: Evaluation of progress towards goal: pt is afebrile and free from s/s of infection. Will continue to monitor Problem: Knowledge Deficit Goal: Patient/patient petroleum products sales representative demonstrates understanding of disease process, treatment [...] supplement as ordered 13. Collaborate with clinical marble polisher hand 14. Include patient/ patient's petroleum products sales representative in decisions related to nutrition Outcome: [...] be free from fall Description: Interventions: 1. [place] to environment 2. Hourly rounds addressing the [...] non-skid footwear 11. Teach patient and patient petroleum products sales representative to maintain environment for safety and [...] (cane, walker) within reach 19. Request patient petroleum products sales representative bring adaptive equipment/mobility aids from home or obtain and provide as needed 20. Consult pharmacy regarding effects of med's affecting mobility, cognition, and alternatives 21. Obtain physician order for PT if risk factors associated with mobility are present 22. Obtain physician order for OT as appropriate 23. Utilize diversional activities 24. Educate patient and patient petroleum products sales representative how to maintain a safe environment during visitation times (notify nurse prior to leaving bedside) 25. Consider appropriateness of medical or non-medical sales 26. Set up voiding schedule as appropriate [...] decisions. Called son Ashok. Ashok would like [facility] [place]-he has been there before. Referral sent. - [...] Description: INTERVENTIONS: 1. Encourage patient or legal petroleum products sales representative to report early pain and ask [...] per policy 9. Teach patient or legal petroleum products sales representative interventions for comforting Outcome: Progressing Note: [...] at the bedside 7. Instruct patient/ patient petroleum products sales representative about use of safety devices 8. Include patient/ patient petroleum products sales representative in decisions related to safety Outcome: [...] hygiene technique. 7. Identify and instruct patient/patient petroleum products sales representative in use of appropriate isolation precautions for identified infection/symptoms. 8. Provide and discuss with patient/patient petroleum products sales representative on educational MDRO sheet. 9. Encourage and monitor nutritional status daily and consult marble polisher hand if indicated. 10. Implement neutropenic guidelines as needed. Outcome: Progressing Note: Evaluation of progress towards goal: patient remains afebrile, will continue to monitor labs Problem: Knowledge Deficit Goal: Patient/patient petroleum products sales representative demonstrates understanding of disease process, treatment [...] Score of =/> 25 or indicated by [facility] Assessment Goal: Patient should be free from fall Description: Interventions: 1. [place] to environment 2. Hourly rounds addressing the [...] non-skid footwear 11. Teach patient and patient petroleum products sales representative to maintain environment for safety and [...] (cane, walker) within reach 19. Request patient petroleum products sales representative bring adaptive equipment/mobility aids from home or obtain and provide as needed 20. Consult pharmacy regarding effects of med's affecting mobility, cognition, and alternatives 21. Obtain physician order for PT if risk factors associated with mobility are present 22. Obtain physician order for OT as appropriate 23. Utilize diversional activities 24. Educate patient and patient petroleum products sales representative how to maintain a safe environment during visitation times (notify nurse prior to leaving bedside) 25. Consider appropriateness of medical or non-medical sales 26. Set up voiding schedule as appropriate (every 2 hours) Outcome: Progressing Note: Evaluation of progress towards goal: patient remains free from falls Images from the original note were not included. DISCHARGE PLANNING NOTE Nurse Monitoring met with patient, introduced self, and explained role. Patient educated on safe discharge plan. Pt admitted 06/29/2024 with Acute blood loss anemia [D62] Fall in home, initial encounter [W19.XXXA, Y92.009] per chart review. Consults: Trauma and Urology Discharge Barriers per Daily Transition Rounds and chart review: PT/OT eval, bilat duplex, oxygen, H&H q12 Past Medical History: Diagnosis Date Cardiac arrest ([facility]) 02/2024 Coronary artery disease Dementia ([facility]) Fall in home, initial encounter 06/29/2024 Hemorrhoids Hyperlipidemia Hypertension Kidney stone Memory loss Myocardial infarction ([facility]) Urinary tract infection Prior to admission patient [...] steps into home. PCP: REINALDO CHAKRABORTY Pharmacy: [facility] PCP and pharmacy confirmed [...] daughter in laws house Sons address is [address] [place] [address] Services Requested: Services Requested Patient expects to [...] Description: INTERVENTIONS: 1. Encourage patient or legal petroleum products sales representative to report early pain and ask [...] per policy 9. Teach patient or legal petroleum products sales representative interventions for comforting Outcome: Progressing Note: [...] at the bedside 7. Instruct patient/ patient petroleum products sales representative about use of safety devices 8. Include patient/ patient petroleum products sales representative in decisions related to safety Outcome: [...] hygiene technique. 7. Identify and instruct patient/patient petroleum products sales representative in use of appropriate isolation precautions for identified infection/symptoms. 8. Provide and discuss with patient/patient petroleum products sales representative on educational MDRO sheet. 9. Encourage and monitor nutritional status daily and consult marble polisher hand if indicated. 10. Implement neutropenic guidelines as needed. Outcome: Progressing Note: Evaluation of progress towards goal: Problem: Knowledge Deficit Goal: Patient/patient petroleum products sales representative demonstrates understanding of disease process, treatment [...] supplement as ordered 13. Collaborate with clinical marble polisher hand 14. Include patient/ patient's petroleum products sales representative in decisions related to nutrition Outcome: [...] Score of =/> 25 or indicated by [facility] Assessment Goal: Patient should be free from fall Description: Interventions: 1. [place] to environment 2. Hourly rounds addressing the [...] non-skid footwear 11. Teach patient and patient petroleum products sales representative to maintain environment for safety and [...] (cane, walker) within reach 19. Request patient petroleum products sales representative bring adaptive equipment/mobility aids from home or obtain and provide as needed 20. Consult pharmacy regarding effects of med's affecting mobility, cognition, and alternatives 21. Obtain physician order for PT if risk factors associated with mobility are present 22. Obtain physician order for OT as appropriate 23. Utilize diversional activities 24. Educate patient and patient petroleum products sales representative how to maintain a safe environment during visitation times (notify nurse prior to leaving bedside) 25. Consider appropriateness of medical or non-medical sales 26. Set up voiding schedule as appropriate [...] Description: INTERVENTIONS: 1. Encourage patient or legal petroleum products sales representative to report early pain and ask [...] per policy 9. Teach patient or legal petroleum products sales representative interventions for comforting Outcome: Progressing Note: [...] at the bedside 7. Instruct patient/ patient petroleum products sales representative about use of safety devices 8. Include patient/ patient petroleum products sales representative in decisions related to safety Outcome: [...] Description: INTERVENTIONS: 1. Encourage patient or legal petroleum products sales representative to report early pain and ask [...] per policy 9. Teach patient or legal petroleum products sales representative interventions for comforting Outcome: Progressing Note: [...] at the bedside 7. Instruct patient/ patient petroleum products sales representative about use of safety devices 8. Include patient/ patient petroleum products sales representative in decisions related to safety Outcome: [...] Limitations: Strict bedrest documented in this encounter [facility] 07-04-2024 History of Present illness Narrative [facility] Department of Pharmacy Pharmacy-Physician Communication Pt name: Neptali Loyola Room: [place] [address] Ru Schwarz MD, Neptali Loyola [...] at the same dose and frequency per [facility] approved policy. Thank you. If we can offer more assistance, please feel free to call us at [phone]. Ismael Flores RPH Images from the original [...] Procedure Component Value Units Date/Time Urine culture [[id number]] Collected: 06/29/24 0206 Specimen: Urine from Jorgensen Catheter Specimen Updated: 06/30/24721 Specimen Notes URINE RECEIVED WITHOUT PRESERVATIVE Culture NO GROWTH AT <1000 CFU/mL Urine culture [[id number]] Collected: 06/28/24 210 Specimen: Urine from Jorgensen Catheter Specimen Updated: 06/30/24 0908 Culture NO GROWTH AT <1000 CFU/mL Blood culture, peripheral #1 [[id number]] Collected: 06/28/241909 Specimen: Blood Updated: 07/02/242229 Specimen Notes PENDING Culture NO GROWTH 4 DAYS Blood culture, peripheral #2 [[id number]] Collected: 06/28/24 190 Specimen: Blood Updated: 07/02/242230 Specimen Notes PENDING Culture NO GROWTH 4 DAYS SARS/FLU A+B/RSV by NAAT/Molecular (M4RT Collection Tube) [[id number]] Collected: 06/28/241809 Specimen: Nasopharynx Updated: 06/28/241946 FLU [...] non-distended, no signs of peritonitis Lines/drains: 16 Croatian J[address] catheter in place with light brown [...] - recent lithotripsy and stent placement at [facility] -Consult to Urology - serial hgb, [...] 07/03 Comorbidities/Medical issues: Neuro- Pulm- Cardio- CAD, WI, HTN, Afib on Eliquis GI- -CKD, nephrolithiasis [...] 06/30/24 0210 06/29/24 0601 06/29/24 0440 06/29/24 013 SODIUM mmol/L -- -- -- -- -- [...] 50 % in water (D50W) flu vacc [id number] 6mos up(PF) glucagon (human recombinant) ipratropium-albuteroL magnesium [...] mL/hr Soraida Mcgovern PA-C Trauma Services Pager: [phone] 11:16 AM 07/03/24 Soraida Mcgovern PA-C 07/03/24 0048 Images from the original note were not [...] Thank you, Bernarda Dennis RN Rapid Response: [facility] TRAUMA SURGERY - PROGRESS NOTE Patient: Neptali Loyola Date of : 1945 AGE 78 y.o. SEX male Assessment / Plan Neptali Loyola 78 y.o. male Mechanism: Fall Injuries/Traumatic issues: Left Renal Hematoma - recent lithotripsy and stent placement at [facility] -Consult to Urology - serial hgb, [...] closely Comorbidities/Medical issues: Neuro- Pulm- Cardio- CAD, WI, HTN, Afib on Eliquis GI- -CKD, nephrolithiasis [...] % in water (D50W) fentaNYL flu vacc [id number] 6mos up(PF) glucagon (human recombinant) ipratropium-albuteroL magnesium [...] can be reached via Patient Touch Pager: [phone] MARIA A Klein 07/02/24 1013 Images from [...] Thank you, AYSE RAYO RN Rapid Response: [facility] Images from the original note were [...] Procedure Component Value Units Date/Time Urine culture [[id number]] Collected: 06/29/24 0206 Specimen: Urine from Jorgensen Catheter Specimen Updated: 06/30/24 0722 Specimen Notes URINE RECEIVED WITHOUT PRESERVATIVE Culture NO GROWTH AT <1000 CFU/mL Urine culture [[id number]] Collected: 06/28/24 2101 Specimen: Urine from Jorgensen Catheter Specimen Updated: 06/30/24 0908 Culture NO GROWTH AT <1000 CFU/mL Blood culture, peripheral #1 [[id number]] Collected: 06/28/24 191 Specimen: Blood Updated: 07/01/242229 Specimen Notes PENDING Culture NO GROWTH 3 DAYS Blood culture, peripheral #2 [[id number]] Collected: 06/28/241900 Specimen: Blood Updated: 07/01/242230 Specimen Notes PENDING Culture NO GROWTH 3 DAYS SARS/FLU A+B/RSV by NAAT/Molecular (M4RT Collection Tube) [[id number]] Collected: 06/28/241809 Specimen: Nasopharynx Updated: 06/28/241946 FLU [...] non-distended, no signs of peritonitis Lines/drains: 16 Croatian Jorgensen catheter in place with light brown [...] Thank you, Bernarda Dennis RN Rapid Response: [facility] Images from the original note were [...] Procedure Component Value Units Date/Time Urine culture [[id number]] Collected: 06/29/24 0206 Specimen: Urine from Jorgensen Catheter Specimen Updated: 06/30/24 0722 Specimen Notes URINE RECEIVED WITHOUT PRESERVATIVE Culture NO GROWTH AT <1000 CFU/mL Urine culture [[id number]] Collected: 06/28/24 210 Specimen: Urine from Jorgensen Catheter Specimen Updated: 06/30/24 0908 Culture NO GROWTH AT <1000 CFU/mL Blood culture, peripheral #1 [[id number]] Collected: 06/28/241909 Specimen: Blood Updated: 06/30/242229 Specimen Notes PENDING Culture NO GROWTH 2 DAYS Blood culture, peripheral #2 [[id number]] Collected: 06/28/24 190 Specimen: Blood Updated: 06/30/242230 Specimen Notes PENDING Culture NO GROWTH 2 DAYS SARS/FLU A+B/RSV by NAAT/Molecular (M4RT Collection Tube) [[id number]] Collected: 06/28/241809 Specimen: Nasopharynx Updated: 06/28/241946 FLU [...] -- 62 21 95 % -- 06/30/24 09 -- -- 62 19 94 % -- 06/30/24 08 -- -- 64 25 96 % -- Constitutional: Patient in no acute distress Neuro: alert and oriented to person place and time. Skin: Normal, skin dry and warm, no visible rashes or lesions Respiratory: Nonlabored breathing on room air Cardiovascular: Regular rate and rhythm Abdomen: Soft, non-tender, non-distended, no signs of peritonitis Lines/drains: 16 Croatian J[address] catheter in place with a violeta red urine, draining well. No clots present LABS: Results from last 7 days Lab Units 07/01/2421406/30/24 1242 06/30/24 0905 06/30/24 0210 06/29/24 0845 [...] 06/30/24 0210 06/29/24 0601 06/29/24 0440 06/29/24 01306/28/24 1901 SODIUM mmol/L -- 141 -- -- [...] last 7 days Lab Units 06/29/24 01306/28/24 2313 06/28/241900 INR 1.6* 1.7* 3.1* PROTIME [...] % in water (D50W) fentaNYL flu vacc [id number] 6mos up(PF) glucagon (human recombinant) ipratropium-albuteroL magnesium [...] Last Rate: 3 mL/hr (06/30/242038) REINALDO Santillan 07/01/24731 SICU Academic Critical Care PROGRESS NOTE Admission Date: 06/29/2024 1:19 AM Attending Physician: Ru Schwarz MD Date of 1945 Hospital Day: 2 day(s) Neptali Loyola is a 78 y.o. male who presented to [facility] ED via EMS as a Level 2 [...] and symptomatic anemia overnight from the to 16th. Hemoglobin responded appropriately. Maintenance fluids [...] -- 1.9 AST U/L -- -- -- ALT U/L -- -- -- 9 16 [...] Procedure Component Value Units Date/Time Urine culture [[id number]] Collected: 06/29/24 0206 Specimen: Urine from Jorgensen Catheter Specimen Updated: 06/30/24 0722 Specimen Notes URINE RECEIVED WITHOUT PRESERVATIVE Culture NO GROWTH AT <1000 CFU/mL Urine culture [[id number]] Collected: 06/28/24 2101 Specimen: Urine from Jorgensen Catheter Specimen Updated: 06/30/24 0908 Culture NO GROWTH AT <1000 CFU/mL Blood culture, peripheral #1 [[id number]] Collected: 06/28/24 191 Specimen: Blood Updated: 06/30/242229 Specimen Notes PENDING Culture NO GROWTH 2 DAYS Blood culture, peripheral #2 [[id number]] Collected: 06/28/24 190 Specimen: Blood Updated: 06/30/242230 Specimen Notes PENDING Culture NO GROWTH 2 DAYS SARS/FLU A+B/RSV by NAAT/Molecular (M4RT Collection Tube) [[id number]] Collected: 06/28/24 181 Specimen: Nasopharynx Updated: 06/28/241946 [...] Line Status Saline locked;Alcohol sponge cap maintained 07/01/24 030 Site Assessment Clean;Dry;Intact 07/01/24 030 Dressing Type Occlusive;Transparent 07/01/24 030 Dressing Status Clean;Dry;Intact 07/01/24 030 Specimen Obtained Yes 02/14/25 1805 Specimen Status Sent for analysis 06/28/24 180 Amount Drawn (mL) 10 mL 06/28/24 1805 Peripheral IV 06/28/24 Left Antecubital (Active) Line [...] 07/01/24 0300 Output (mL) 145 mL 07/01/24 0600 Arterial [...] status post reversal with Kcentra CKD ASSESSMENT/PLAN: Edward Del Shiets is a 78 y.o. male /p fall [...] BID, Lipitor PMH: CAD, hypertension, hyperlipidemia, previous WI, Afib, pacemaker ECHO in 2023 demonstrating EF [...] line Disposition: Guarded, SICU Julia Conroy DO OBDEBI Resident, PGY-1 SICU Cosigned by Wilberto Loomis [...] failure with hypoxia Wilberto Loomis MD, FACS [facility] General Surgeons Minimally Invasive Robotic Surgery Surgical Critical Care Trauma Office: [phone] Please feel free to call with questions [...] 0020 06/29/24 1804 06/29/24 0601 06/29/24 0440 06/29/2413606/28/24 1901 SODIUM mmol/L -- -- 142 -- [...] % in water (D50W) fentaNYL flu vacc [id number] 6mos up(PF) glucagon (human recombinant) ipratropium-albuteroL magnesium [...] water, 100 mL/hr, Last Rate: 100 mL/hr (06/30/24645) dextrose 5 % in water, 50 mL/hr sodium chloride 0.9 %, 20 mL/hr sodium chloride 0.9 %, 20 mL/hr sodium chloride 0.9 %, 3 mL/hr, Last Rate: 3 mL/hr (06/30/2446) REINALDO Santillan 06/30/2414 Images from the original note were not [...] Oral 72 20 95 % -- -- 06/29/24 2200 -- -- -- 60 (!) 26 98 % -- -- 06/29/24 2135 102/42 36.6 C (97.8 F) Oral 66 (!) 30 -- -- -- 06/29/242119 -- 37 C (98.6 F) Oral 68 (!) 26 98 % -- -- 06/29/242099 -- -- -- 73 (!) 30 97 % -- -- 06/29/242001 -- -- -- 69 (!) 28 98 % -- -- 06/29/241999 -- -- -- 70 25 98 % -- -- 06/29/24 1910 -- -- -- 75 (!) 26 97 [...] non-distended, no signs of peritonitis Lines/drains: 16 Croatian Jorgensen catheter in place with a violeta [...] a 78 y.o. male who presented to [facility] ED via EMS as a Level 2 [...] Lab Units 06/30/24 0210 06/29/24 0440 06/29/24 01306/28/24 1901 BUN mg/dL 20 17 16 20 [...] Procedure Component Value Units Date/Time Urine culture [[id number]] Resulted: 06/29/24 0320 Specimen: Urine Updated: 06/29/24 0331 Urine culture [[id number]] Collected: 06/28/24 2100 Specimen: Urine Updated: 06/29/24 1454 Blood culture, peripheral #1 [[id number]] Collected: 06/28/24 1910 Specimen: Blood Updated: 06/29/242229 Specimen Notes PENDING Culture NO GROWTH 1 DAY Blood culture, peripheral #2 [[id number]] Collected: 06/28/24 190 Specimen: Blood Updated: 06/29/242230 Specimen Notes PENDING Culture NO GROWTH 1 DAY SARS/FLU A+B/RSV by NAAT/Molecular (M4RT Collection Tube) [[id number]] Collected: 06/28/24 181 Specimen: Nasopharynx Updated: 06/28/241946 [...] cap changed;Connections checked/tightened 06/29/24319 Site Assessment Clean;Dry;Intact 06/29/24 032 Dressing Type Occlusive;Transparent 06/29/24 032 Dressing Status Clean;Dry;Intact 06/29/24 032 Specimen Obtained Yes 06/28/241804 Specimen Status Sent for analysis 06/28/241804 Amount Drawn (mL) 10 mL 06/28/241804 Peripheral IV 06/28/24 Left Antecubital (Active) Line Status Blood return noted;Flushed;Infusing;Connections checked/tightened 06/29/24319 Site Assessment Clean;Dry;Intact 06/29/24 032 Dressing Type [...] BID, Lipitor PMH: CAD, hypertension, hyperlipidemia, previous WI, Afib, pacemaker ECHO in 2023 demonstrating EF [...] today = 34 minutes. 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 And expected for one kidney Did get RBC again this morning. No trali suspected yet. CT reviewed. Left kidey is shattered. Might need nephrectomy. I and O +2.6L/24 hours and +2.1L/ HS Wilberto Loomis MD, FACS [facility] Minimally Invasive Robotic Surgery Surgical Critical Care Trauma Office: [phone] Please feel free to call with questions at anytime. SICU Academic Critical Care PROGRESS NOTE Admission Date: 06/29/2024 1:19 AM Attending Physician: Ru Schwarz MD Date of 1945 Hospital Day: 0 day(s) Neptali Loyola is a 78 y.o. male who presented to [facility] ED via EMS as a Level 2 [...] from last 3 days Lab Units 06/29/2443906/29/2413606/28/24 190 BUN mg/dL 17 16 20 CREATININE mg/dL 1.57* 1.46* 1.90* POTASSIUM mmol/L 3.7 3.6 3.8 CO2 mmol/L 23 21* 23 CHLORIDE mmol/L 108 111* 108 MAGNESIUM mg/dL -- -- 1.9 AST U/L -- 15 25 ALT U/L -- 9 16 ALK PHOS U/L -- 63 70 LIPASE U/L -- 8* -- Results from last 3 days Lab Units 06/29/2413606/28/24 190 INR 1.6* 3.1* PROTIME sec 18.1* 34.3* Results from last 3 days Lab Units 06/29/2443906/29/2413606/28/24211406/28/241900 WBC X10E9/L 11.7* 10.6 -- 13.8* HEMOGLOBIN [...] Procedure Component Value Units Date/Time Urine culture [[id number]] Resulted: 06/29/24319 Specimen: Urine Updated: 06/29/24330 Blood culture, peripheral #2 [[id number]] Collected: 06/28/241906 Specimen: Blood, Peripheral Draw Updated: 06/28/241913 Blood culture, peripheral #1 [[id number]] Collected: 06/28/241858 Specimen: Blood, Peripheral Draw Updated: 06/28/241913 SARS/FLU A+B/RSV by NAAT/Molecular (M4RT Collection Tube) [[id number]] Collected: 06/28/241809 Specimen: Nasopharynx Updated: 06/28/241946 FLU A PCR Negative FLU B PCR Negative RSV by PCR Negative SARS CoV 2 BY PCR Not Detected Glucose Results from last 7 days Lab Units 06/29/24 0601 06/29/24 0440 06/29/24 0137 06/28/24 190 BEDSIDE GLUCOSE mg/dL 108* -- -- -- GLUCOSE mg/dL -- 111* 105* 137* Lines/Drains Peripheral IV 06/28/24 Posterior;Right Hand (Active) Line Status No blood return;Saline locked;Flushed;Alcohol sponge cap changed;Connections checked/tightened 06/29/24319 Site Assessment Clean;Dry;Intact 06/29/24319 Dressing Type Occlusive;Transparent 06/29/24 032 Dressing Status Clean;Dry;Intact 06/29/24 032 Specimen Obtained Yes 06/28/241804 Specimen Status Sent for analysis 06/28/24 180 Amount Drawn (mL) 10 mL 06/28/241804 Peripheral IV 06/28/24 Left Antecubital (Active) Line Status Blood return noted;Flushed;Infusing;Connections checked/tightened 06/29/24 032 Site Assessment Clean;Dry;Intact 06/29/24 032 Dressing Type Occlusive;Transparent 06/29/24 032 Dressing Status Clean;Dry;Intact 06/29/24 032 Dressing Intervention Initial dressing 06/28/241999 Dressing Change Due (Non-Gauze) 07/05/24 06/28/241999 Urinary Catheter 06/28/24 Single lumen (Active) Catheter Status Patent 06/29/24319 Site Assessment Clean;Skin intact;Bleeding 06/29/24 032 Collection Container Standard drainage bag/container 06/29/24 032 Securement Method Securing device (Describe) 06/29/24 032 [...] Meds: None PMH: CAD, hypertension, hyperlipidemia, previous WI, AFib Home meds: Eliquis, Plavix 4. GI [...] today = 34 minutes. 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 BNP elevated. Last unit RBC was this morning. Will watch for continued bleeding. CT reviewed. Left kidey is shattered. Might need nephrectomy. Wilberto Loomis MD, FACS [facility] Minimally Invasive Robotic Surgery Surgical Critical Care Trauma Office: [phone] Please feel free to call with questions at anytime. 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 Admit Date: 06/29/2024 Discharge Date: 07/04/2024 Admitting Physician: Ru Schwarz MD Consults: Urology and SICU Discharge Diagnoses/Chief Complaint: fall Primary Problem Fall in home, initial encounter Patient Active Problem List Diagnosis Date Noted Fall in home, initial encounter 06/29/2024 Past Medical History: Diagnosis Date Cardiac arrest [place]) 02/2024 Coronary artery disease Dementia ([facility]) Fall in home, initial encounter 06/29/2024 Hemorrhoids Hyperlipidemia Hypertension Kidney stone Memory loss Myocardial infarction ([facility]) Urinary tract infection HOSPITAL COURSE SUMMARY: Neptali Loyola is an 78 y.o. White or male presented to [facility] ED via EMS as a level 2 [...] - recent lithotripsy and stent placement at [facility] -Consult to Urology - serial hgb, [...] Family Medicine Why: 3:00 pm Contact information: [facility] [facility] [address] Kelvin Langston MD Follow up. Specialty: Urology Why: Follow up for management of kidney stones Contact information: [address] Dept of Urology [facility] [address] Scheduled Appointments YOUR SCHEDULED APPOINTMENTS Please make note of this in your schedule as to not miss or call to reschedule. Thank you! 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 Time spent: 45 minutes SORAIDA MCGOVERN PA-C 07/04/24 12:17 PM Soraida Mcgovern PA-C 07/04/24 1217 documented in this encounter [facility] 07-04-2024 Progress note Formatting of t his note might be different from the original. DISCHARGE PLANNING NOTE Case discussed in daily transition rounds and chart reviewed by CN. 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 HENS complete. CRF in dc packet and sent to [facility]. Patient aware of dc at 4p as well. CN will continue to follow and is available should any further needs arise. - Julisa Del Toro RN 07/04/24 11:25 AM [facility] 07-04-2024 Plan of care note Problem: Pain Goal: Patient goal is pain score less than 4, able to rest, and participant in treatment plan as appropriate Description: INTERVENTIONS: 1. Encourage patient or legal petroleum products sales representative to report early pain and ask [...] per policy 9. Teach patient or legal petroleum products sales representative interventions for comforting Outcome: Progressing Note: [...] at the bedside 7. Instruct patient/ patient petroleum products sales representative about use of safety devices 8. Include patient/ patient petroleum products sales representative in decisions related to safety Outcome: [...] hygiene technique. 7. Identify and instruct patient/patient petroleum products sales representative in use of appropriate isolation precautions for identified infection/symptoms. 8. Provide and discuss with patient/patient petroleum products sales representative on educational MDRO sheet. 9. Encourage and monitor nutritional status daily and consult marble polisher hand if indicated. 10. Implement neutropenic guidelines as needed. Outcome: Progressing Note: Evaluation of progress towards goal: Pt is afebrile and will remain free from signs of infection during shift. Labs and PIV insertion site being monitored Problem: Knowledge Deficit Goal: Patient/patient petroleum products sales representative demonstrates understanding of disease process, treatment [...] goal: Discharge planning in process. Plan is [facility] Problem: Potential for Compromised Skin Integrity Goal: [...] supplement as ordered 13. Collaborate with clinical marble polisher hand 14. Include patient/ patient's petroleum products sales representative in decisions related to nutrition Outcome: Progressing Note: Evaluation of progress towards goal: pt is consuming an adequate amt of meals Problem: Moderate - High Risk Fall Score Description: Issa Fall Score of =/> 25 or indicated by [facility] Assessment Goal: Patient should be free from fall Description: Interventions: 1. [place] to environment 2. Hourly rounds addressing the [...] non-skid footwear 11. Teach patient and patient petroleum products sales representative to maintain environment for safety and [...] (cane, walker) within reach 19. Request patient petroleum products sales representative bring adaptive equipment/mobility aids from home or obtain and provide as needed 20. Consult pharmacy regarding effects of med's affecting mobility, cognition, and alternatives 21. Obtain physician order for PT if risk factors associated with mobility are present 22. Obtain physician order for OT as appropriate 23. Utilize diversional activities 24. Educate patient and patient petroleum products sales representative how to maintain a safe environment during visitation times (notify nurse prior to leaving bedside) 25. Consider appropriateness of medical or non-medical sales 26. Set up voiding schedule as appropriate (every 2 hours) Outcome: Progressing Note: Evaluation of progress towards goal: Pt will remain free from falls during shift. Call light in reach, bed in lowest position, bed and chair wheels locked, 2/4 side rails up, nonslip socks on, overbed table and personal belongings within reach, hourly rounding being completed, RN [facility] Progress note Formatting of t his note might be different from the original. DISCHARGE PLANNING NOTE 4:30pm Rescheduled to 4pm 2.20.25 per SW request. Ambulette transport via PTN confirmed in [facility] to [facility] 07.04.24 at 12:00pm [employer] 07-03-2024 Progress note Formatting of t his note might be different from the original. DISCHARGE PLANNING NOTE Prior Auth approved for admission to : [facility]/ [place], [place] (P# ; F# ) Approval # [id number] Valid for Dates: 07/03/2024-07/09/2024 [employer] 07-03-2024 Plan of care note Problem: Pain Goal: Patient goal is pain score less than 4, able to rest, and participant in treatment plan as appropriate Description: INTERVENTIONS: 1. Encourage patient or legal petroleum products sales representative to report early pain and ask [...] per policy 9. Teach patient or legal petroleum products sales representative interventions for comforting Outcome: Adequate for [...] at the bedside 7. Instruct patient/ patient petroleum products sales representative about use of safety devices 8. Include patient/ patient petroleum products sales representative in decisions related to safety Outcome: Adequate for Discharge Note: Evaluation of progress towards goal: Patient safety maintained during shift with use of 5 rights, patient and staff using hygiene, patient environment free of harm and debrie. Will continue to monitor during shift. Problem: Knowledge Deficit Goal: Patient/patient petroleum products sales representative demonstrates understanding of disease process, treatment [...] Score of =/> 25 or indicated by [facility] Assessment Goal: Patient should be free from fall Description: Interventions: 1. [place] to environment 2. Hourly rounds addressing the [...] non-skid footwear 11. Teach patient and patient petroleum products sales representative to maintain environment for safety and [...] (cane, walker) within reach 19. Request patient petroleum products sales representative bring adaptive equipment/mobility aids from home or obtain and provide as needed 20. Consult pharmacy regarding effects of med's affecting mobility, cognition, and alternatives 21. Obtain physician order for PT if risk factors associated with mobility are present 22. Obtain physician order for OT as appropriate 23. Utilize diversional activities 24. Educate patient and patient petroleum products sales representative how to maintain a safe environment during visitation times (notify nurse prior to leaving bedside) 25. Consider appropriateness of medical or non-medical sales 26. Set up voiding schedule as appropriate [...] shift. Will continue to monitor during shift. [facility] 07-03-2024 Progress note Formatting of t his note might be different from the original. DISCHARGE PLANNING NOTE Referral sent to multiple facilities or agencies due to patient is without preference. I [facility] 07-03-2024 Progress note Formatting of t his note might be different from the original. DISCHARGE PLANNING NOTE ADILENE called patient Ashok barroso and left a voicemail asking for a return call. SW informed son in voicemail that [facility] is unable to accept due to no [...] be started with [facility]. ADILENE tasked [facility] HOSPITAL to start auth. - [place] 07/03/24 3:03 PM SW informed patient of DC tomorrow. ADILENE also called patient son of discharge tomorrow at 4pm. ADILENE tasked [facility] to set up transport. - [place] 07/03/24 3:53 PM [facility] [employer] [facility] 07-02-2024 Plan of care note Problem: Pain Goal: Patient goal is pain score less than 4, able to rest, and participant in treatment plan as appropriate Description: INTERVENTIONS: 1. Encourage patient or legal petroleum products sales representative to report early pain and ask [...] per policy 9. Teach patient or legal petroleum products sales representative interventions for comforting Outcome: Progressing Note: [...] at the bedside 7. Instruct patient/ patient petroleum products sales representative about use of safety devices 8. Include patient/ patient petroleum products sales representative in decisions related to safety Outcome: [...] hygiene technique. 7. Identify and instruct patient/patient petroleum products sales representative in use of appropriate isolation precautions for identified infection/symptoms. 8. Provide and discuss with patient/patient petroleum products sales representative on educational MDRO sheet. 9. Encourage and monitor nutritional status daily and consult marble polisher hand if indicated. 10. Implement neutropenic guidelines as needed. Outcome: Progressing Note: Evaluation of progress towards goal: patient remains afebrile, will continue to monitor labs Problem: Knowledge Deficit Goal: Patient/patient petroleum products sales representative demonstrates understanding of disease process, treatment [...] supplement as ordered 13. Collaborate with clinical marble polisher hand 14. Include patient/ patient's petroleum products sales representative in decisions related to nutrition Outcome: [...] be free from fall Description: Interventions: 1. [place] to environment 2. Hourly rounds addressing the [...] non-skid footwear 11. Teach patient and patient petroleum products sales representative to maintain environment for safety and [...] (cane, walker) within reach 19. Request patient petroleum products sales representative bring adaptive equipment/mobility aids from home or obtain and provide as needed 20. Consult pharmacy regarding effects of med's affecting mobility, cognition, and alternatives 21. Obtain physician order for PT if risk factors associated with mobility are present 22. Obtain physician order for OT as appropriate 23. Utilize diversional activities 24. Educate patient and patient petroleum products sales representative how to maintain a safe environment during visitation times (notify nurse prior to leaving bedside) 25. Consider appropriateness of medical or non-medical sales 26. Set up voiding schedule as appropriate (every 2 hours) Outcome: Progressing Note: Evaluation of progress towards goal: patient remains free from falls [facility] 07-02-2024 Progress note Formatting of t his note is different from the original. Physical Therapy Evaluation Discharge Recommendations PT Recommendations: Shelter Facility SNF/ECF Comments: Recommend SNF as pt [...] 6 Clicks: Basic Mobility Raw Score: 13 [facility] G Code Modifier: CK Therapy Plan [...] lithotripsy and stent placed on 06/19/24 at [facility]. Past Medical History: Diagnosis Date Cardiac arrest ([facility]) 02/2024 Coronary artery disease Dementia ([facility]) Fall in home, initial encounter 06/29/2024 Hemorrhoids Hyperlipidemia Hypertension Kidney stone Memory loss Myocardial infarction ([facility]) Urinary tract infection History reviewed. No pertinent [...] ok for PT/OT--OOB. Equipment: gait belt, RW Telemetry/Supervisor Inspection Room: Yes Oxygen Order : SpO2 90% or [...] Goal: Patient will perform transfers with Modified [place] Dates: Start: 07/02/24 Expected End: 07/25/24 Description: Goal Description: Disciplines: PT Physical Therapy Care Plan (Resolved) There are no resolved problems. Principal Problem: Fall in home, initial encounter [facility] [employer] 07-02-2024 Progress note Formatting of t his note is different from the original. Occupational Therapy Evaluation Discharge Recommendations OT Recommendations : Shelter Facility SNF/ECF Comments: recommend SNF at discharge [...] little Scoring Daily Activity Raw Score: 13 [facility] G Code Modifier: CL Pt admit 06/29/24 after fall from standing. Pt hypotensive on arrival s/p 3 units of PRBC. Dx: L renal hematoma, hypotension, acute blood loss anemia Urology consulted. Pt with hematuria, maintain jorgensen catheter. Pt with h/o lithotripsy with stent placement at [facility] on 06/19/24 Past Medical History: Diagnosis Date Cardiac arrest ([facility]) 02/2024 Coronary artery disease Dementia ([facility]) Fall in home, initial encounter 06/29/2024 Hemorrhoids Hyperlipidemia Hypertension Kidney stone Memory loss Myocardial infarction ([facility]) Urinary tract infection History reviewed. No pertinent [...] mobility guideline:yes, pass Equipment: gait belt, RW Telemetry/Supervisor Inspection Room: Yes Oxygen Order : spo2 90% or [...] Principal Problem: Fall in home, initial encounter [facility] 07-02-2024 Plan of care note Problem: Pain Goal: Patient goal is pain score less than 4, able to rest, and participant in treatment plan as appropriate Description: INTERVENTIONS: 1. Encourage patient or legal petroleum products sales representative to report early pain and ask [...] per policy 9. Teach patient or legal petroleum products sales representative interventions for comforting Outcome: Progressing Note: [...] at the bedside 7. Instruct patient/ patient petroleum products sales representative about use of safety devices 8. Include patient/ patient petroleum products sales representative in decisions related to safety Outcome: [...] hygiene technique. 7. Identify and instruct patient/patient petroleum products sales representative in use of appropriate isolation precautions for identified infection/symptoms. 8. Provide and discuss with patient/patient petroleum products sales representative on educational MDRO sheet. 9. Encourage and monitor nutritional status daily and consult marble polisher hand if indicated. 10. Implement neutropenic guidelines as needed. Outcome: Progressing Note: Evaluation of progress towards goal: pt is afebrile and free from s/s of infection. Will continue to monitor Problem: Knowledge Deficit Goal: Patient/patient petroleum products sales representative demonstrates understanding of disease process, treatment [...] supplement as ordered 13. Collaborate with clinical marble polisher hand 14. Include patient/ patient's petroleum products sales representative in decisions related to nutrition Outcome: [...] be free from fall Description: Interventions: 1. [place] to environment 2. Hourly rounds addressing the [...] non-skid footwear 11. Teach patient and patient petroleum products sales representative to maintain environment for safety and [...] (cane, walker) within reach 19. Request patient petroleum products sales representative bring adaptive equipment/mobility aids from home or obtain and provide as needed 20. Consult pharmacy regarding effects of med's affecting mobility, cognition, and alternatives 21. Obtain physician order for PT if risk factors associated with mobility are present 22. Obtain physician order for OT as appropriate 23. Utilize diversional activities 24. Educate patient and patient petroleum products sales representative how to maintain a safe environment during visitation times (notify nurse prior to leaving bedside) 25. Consider appropriateness of medical or non-medical sales 26. Set up voiding schedule as appropriate (every 2 hours) Outcome: Progressing Note: Evaluation of progress towards goal: bed is locked and in lowest position. Call light within reach and hourly rounding maintained [employer] 07-02-2024 Nurse Note Pt pulse ox at 84%, pt placed on 2 liters of oxygen, notified patients nurse Ligia Soliz Rn of 02 placement. Pt resting quietly. [employer] 07-02-2024 Progress note Formatting of t his [...] decisions. Called son Ashok. Ashok would like [facility]-he has been there before. Referral sent. - Julisa Del Toro RN 07/02/24 3:38 PM [facility] 07-02-2024 Progress note Formatting of t his note is different from the original. Physical Therapy PT Type of Visit: Medical deferral Reason For Medical Deferral: Off unit Off Unit: Testing [facility] [employer] [facility] 07-02-2024 Progress note Formatting of t his note is different from the original. Occupational Therapy OT Type of Visit: Medical deferral Reason For Medical Deferral: Off unit Off Unit: Testing Activity Limitations: Strict bedrest [facility] 07-02-2024 Consult note Formatting of th is note is different from the original. NUTRITION ADULT INITIAL EVALUATION NUTRITION ASSESSMENT: Reason to be seen: screen: PO/wt loss Patient History: Admit Diagnosis: Patient Active Problem List Diagnosis Fall in home, initial encounter Past Medical History: Past Medical History: Diagnosis Date Cardiac arrest ([facility]) 02/2024 Coronary artery disease Dementia ([facility]) Fall in home, initial encounter 06/29/2024 Hemorrhoids Hyperlipidemia Hypertension Kidney stone Memory loss Myocardial infarction ([facility]) Urinary tract infection Past Surgical History:History reviewed. No pertinent surgical history. Social/ Cognitive/ Economic: A/Ox4; dementia but per RN, pt answers questions appropriately. Per son, PMH includes alcoholism, but pt no longer drinks EtOH. Brief Clinical Summary: 78 y.o. White or male. Presented to [facility] ED via EMS as a level 2 trauma after sustaining a fall from standing height; upgraded to level 1 given hypotension. PMH: Afib, CAD, dementia, [place]. 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 Skin (per nursing flow sheets): Skin Color: [place] (07/02/24521) Skin Temp: Warm; Dry (07/02/24521) Wound [...] the procedure and not feeling well. 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 No appetite information in RN flowsheets. RN notes appetite is good. Pt noted he ate about 100% of breakfast 07/02 Oral Supplemental Intake/ Acceptance: none ordered; agreeable to [facility] janie Anthropometrics: Ht Readings from Last 1 [...] his son knows all that stuff . [place] Body Weight: 80.9 kg Percent [place] Body Weight: >100% Weight Changes: up this admit Body Mass Index: Body mass index is 29.51 kg/m . BMI Category: Pre-obese (25.00- 29.99) Comparative Standards: Estimated Energy Needs: 9905-5250 kcals daily. Method and weight used: 25-30 kcal/kg Estimated Protein Needs: 97-161 grams daily. Method and weight used: 1.2-2g protein/kg Estimated Fluid Needs: 1033-7469 ml daily. Method weight used: 1 ml/kcal [...] MS, RD, LD Clinical Dietitian [employer] [facility] 07-02-2024 Consult note Formatting of th is note is different from the original. NUTRITION ADULT INITIAL EVALUATION NUTRITION ASSESSMENT: Reason to be seen: screen: PO/wt loss Patient History: Admit Diagnosis: Patient Active Problem List Diagnosis Fall in home, initial encounter Past Medical History: Past Medical History: Diagnosis Date Cardiac arrest ([facility]) 02/2024 Coronary artery disease Dementia ([facility]) Fall in home, initial encounter 06/29/2024 Hemorrhoids Hyperlipidemia Hypertension Kidney stone Memory loss Myocardial infarction ([facility]) Urinary tract infection Past Surgical History:History reviewed. No pertinent surgical history. Social/ Cognitive/ Economic: A/Ox4; dementia but per RN, pt answers questions appropriately. Per son, PMH includes alcoholism, but pt no longer drinks EtOH. Brief Clinical Summary: 78 y.o. White or male. Presented to [facility] ED via EMS as a level 2 trauma after sustaining a fall from standing height; upgraded to level 1 given hypotension. PMH: Afib, CAD, dementia, [place]. At outside ED, CTAP showed possible hematoma or active bleed concerning for renal laceration. Biochemical Data, Medical Tests, and Procedures: reviewed Labs: Results from last 3 days Lab Units 07/02/24 0601 07/01/24 1649 07/01/24 0828 07/01/245 06/30/24 0210 SODIUM mmol/L 142 -- -- [...] last 3 days Lab Units 07/01/24 02106/30/24 021 IONIZED MAGNESIUM mmol/L 0.55 0.53 Results [...] found for: VERYLOWLIP No results found for: [id number] No results found for: FOLATE No results [...] 50% solution 25 mL 25 mL intravenous PRMARIA A [place] 25 mL at 06/30/24 0542 famotidine (PF) (PEPCID) injection 20 mg 20 mg intravenous Q24H TYRON MARIA A García 20 mg at 07/02/24 0829 fentaNYL (SUBLIMAZE) injection 25 mcg 25 mcg intravenous Q1H PRMARIA A [place] 25 mcg at 06/29/24 0324 flu vacc [id number] 6mos up(PF) (FLULAVAL/FLUZONE/FLUARIX TRIV) injection syringe 0.5 [...] mEq 20-50 mEq oral PRN MARIA A Gracía potassium chloride IVPB 10 mEq/50 mL in [...] dementia/altered mentation Extremities, Muscles, and Bones -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 Skin (per nursing flow sheets): Skin Color: [place] (07/02/24521) Skin Temp: Warm; Dry (07/02/24521) Wound [...] the procedure and not feeling well. 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 Allergies: No Known Allergies Per son, TIFFANIE. Diet/ Nutrition Order Review: Dietary Orders (From [...] Supplemental Intake/ Acceptance: none ordered; agreeable to [facility] janie Anthropometrics: Ht Readings from Last 1 [...] his son knows all that stuff . [place] Body Weight: 80.9 kg Percent [place] Body Weight: >100% Weight Changes: up this admit Body Mass Index: Body mass index is 29.51 kg/m . BMI Category: Pre-obese (25.00- 29.99) Comparative Standards: Estimated Energy Needs: 1454-8206 kcals daily. Method and weight used: 25-30 kcal/kg Estimated Protein Needs: 97-161 grams daily. Method and weight used: 1.2-2g protein/kg Estimated Fluid Needs: 9599-3938 ml daily. Method weight used: 1 ml/kcal [...] at home per son. He presented to [facility]. We will CT scan showed large perinephric [...] History: Diagnosis Date Coronary artery disease Dementia ([facility]) Hemorrhoids Memory loss Myocardial infarction ([facility]) Urinary tract infection Past Surgical History: History [...] Resource Strain: Patient Declined (04/24/2024) Received from [facility] Overall Financial Resource Strain (CARDIA) Difficulty of Paying Living Expenses: Patient declined Food Insecurity: No Food Insecurity (06/29/2024) Hunger Screening Food Insecurity - Worry: Never True Food Insecurity - Inability: Never True Transportation Needs: Patient Declined (04/24/2024) Received from [facility] TA - Transportation Lack of Transportation (Medical): Patient declined Lack of Transportation (Non-Medical): Patient declined Physical Activity: Patient Declined (04/24/2024) Received from [facility] Exercise Vital Sign Days of Exercise per Week: Patient declined Minutes of Exercise per Session: Patient declined Stress: Patient Declined (04/24/2024) Received from [facility] [place] [facility] Occupational [facility] - Occupational Stress Questionnaire Feeling of Stress : Patient declined Social Connections: Patient Declined (04/24/2024) Received from [facility] Social Connection and Isolation Panel [NHANES] Frequency of Communication with Friends and Family: Patient declined Frequency of Social Gatherings with Friends and Family: Patient declined Attends Hinduism Services: Patient declined Active Member of Clubs or Organizations: Patient declined Attends Club or Organization Meetings: Patient declined Marital Status: Patient declined Interpersonal Safety: Unknown (04/24/2024) Received from [facility] Humiliation, Afraid, Rape, and Kick questionnaire Fear of Current or Ex-Partner: Patient declined Emotionally Abused: Patient declined Physically Abused: Not on file Sexually Abused: Patient declined Housing Instability: Patient Declined (04/24/2024) Received from [facility] Housing Stability Vital Sign Unable to [...] 69 (!) 33 96 % -- -- 06/29/24156 131/56 -- -- 74 (!) 33 97 % -- -- 06/29/24153 -- -- -- -- -- -- 182.9 cm (6') 93 kg (205 lb) 06/29/24147 99/55 -- -- 71 (!) 30 98 % -- -- 06/29/24143 102/51 36.8 C (98.2 F) Axillary 72 18 98 % -- -- 06/29/24142 110/46 -- -- 73 (!) 27 97 [...] CT abdomen and pelvis with contrast Order: [id number] Status: Final result Visible to patient: No (scheduled for 07/02/2024 8:00 PM) Next appt: None 0 Result Notes Details Reading Physician Reading Date Result Priority Fito Alexander MD [phone] 06/28/2024 STAT Narrative & Impression CT ABDOMEN [...] as necessary. Associated Order(s): IP CONSULT TO SUPPORT DBA SICU Academic Critical Care CONSULTATION Name: Neptali Loyola Date: 06/29/2024 Length of Stay: 0 day(s) Chief Concern: Chief Complaint Patient presents with Trauma History of Present Illness Neptali Loyola is an 78 y.o. White or male presented to [facility] ED via EMS as a level 2 [...] History: Diagnosis Date Coronary artery disease Dementia ([facility]) Hemorrhoids Memory loss Myocardial infarction ([facility]) Urinary tract infection History reviewed. No pertinent [...] intravenous, Q6H famotidine, 20 mg, intravenous, Q24H [facility] insulin lispro, 2-10 Units, subcutaneous, Q6H lidocaine, 1 patch, transdermal, Daily polyethylene glycol, 17 g, oral, Daily sennosides-docusate sodium, 2 tablet, oral, BID sodium chloride, 3 mL, intravenous, Q12H [facility] dextrose 5 % in water, 100 mL/hr dextrose 5 % in water, 100 mL/hr lactated ringer's, 100 mL/hr, Last Rate: 100 mL/hr (06/29/24 7563) sodium chloride 0.9 %, 10 mL/hr sodium [...] Resource Strain: Patient Declined (04/24/2024) Received from [facility] Overall Financial Resource Strain (CARDIA) Difficulty of Paying Living Expenses: Patient declined Food Insecurity: No Food Insecurity (06/29/2024) Hunger Screening Food Insecurity - Worry: Never True Food Insecurity - Inability: Never True Transportation Needs: Patient Declined (04/24/2024) Received from [facility] PRAPARE - Transportation Lack of Transportation (Medical): Patient declined Lack of Transportation (Non-Medical): Patient declined Physical Activity: Patient Declined (04/24/2024) Received from [facility] Exercise Vital Sign Days of Exercise per Week: Patient declined Minutes of Exercise per Session: Patient declined Stress: Patient Declined (04/24/2024) Received from [facility] [place] [facility] Occupational Health - Occupational Stress Questionnaire Feeling of Stress : Patient declined Social Connections: Patient Declined (04/24/2024) Received from [facility] Social Connection and Isolation Panel [NHANES] Frequency of Communication with Friends and Family: Patient declined Frequency of Social Gatherings with Friends and Family: Patient declined Attends Hinduism Services: Patient declined Active Member of Clubs or Organizations: Patient declined Attends Club or Organization Meetings: Patient declined Marital Status: Patient declined Interpersonal Safety: Unknown (04/24/2024) Received from [facility] Humiliation, Afraid, Rape, and Kick questionnaire Fear of Current or Ex-Partner: Patient declined Emotionally Abused: Patient declined Sexually Abused: Patient declined Housing Instability: Patient Declined (04/24/2024) Received from [facility] Housing Stability Vital Sign Unable to [...] Procedure Component Value Units Date/Time Urine culture [[id number]] Resulted: 06/29/24319 Specimen: Urine Updated: 06/29/24330 Blood culture, peripheral #2 [[id number]] Collected: 06/28/241906 Specimen: Blood, Peripheral Draw Updated: 06/28/241913 Blood culture, peripheral #1 [[id number]] Collected: 06/28/241858 Specimen: Blood, Peripheral Draw Updated: 06/28/241913 SARS/FLU A+B/RSV by NAAT/Molecular (M4RT Collection Tube) [[id number]] Collected: 06/28/241809 Specimen: Nasopharynx Updated: 06/28/241946 FLU [...] Procedure Component Value Units Date/Time Urine culture [[id number]] Resulted: 06/29/24319 Specimen: Urine Updated: 06/29/24330 Blood culture, peripheral #2 [[id number]] Collected: 06/28/241906 Specimen: Blood, Peripheral Draw Updated: 06/28/241913 Blood culture, peripheral #1 [[id number]] Collected: 06/28/24 185 Specimen: Blood, Peripheral Draw Updated: 06/28/241913 SARS/FLU A+B/RSV by NAAT/Molecular (M4RT Collection Tube) [[id number]] Collected: 06/28/241809 Specimen: Nasopharynx Updated: 06/28/241946 FLU [...] Continuing Strict I&O in critically ill patient 02/15/25 0320 Urine Color Other (Comment) 06/29/24 0320 [...] Meds: None PMH: CAD, hypertension, hyperlipidemia, previous [place], AFib Home meds: Eliquis, Plavix 3. Resp: [...] and titration of care by critical care city attorney. Failure to do so may result in [...] 06/29/2024 10:06 AM documented in this encounter [facility] Progress note Formatting of t his note is different from the original. Occupational Therapy OT Type of Visit: Medical deferral Reason For Medical Deferral: Activity limitations Activity Limitations: Strict bedrest cont as time allows once pt has increased activity orders [facility] 07[facility] Plan of care note Problem: Pain Goal: Patient goal is pain score less than 4, able to rest, and participant in treatment plan as appropriate Description: INTERVENTIONS: 1. Encourage patient or legal petroleum products sales representative to report early pain and ask [...] per policy 9. Teach patient or legal petroleum products sales representative interventions for comforting Outcome: Progressing Note: [...] at the bedside 7. Instruct patient/ patient petroleum products sales representative about use of safety devices 8. Include patient/ patient petroleum products sales representative in decisions related to safety Outcome: [...] hygiene technique. 7. Identify and instruct patient/patient petroleum products sales representative in use of appropriate isolation precautions for identified infection/symptoms. 8. Provide and discuss with patient/patient petroleum products sales representative on educational MDRO sheet. 9. Encourage and monitor nutritional status daily and consult marble polisher hand if indicated. 10. Implement neutropenic guidelines as needed. Outcome: Progressing Note: Evaluation of progress towards goal: patient remains afebrile, will continue to monitor labs Problem: Knowledge Deficit Goal: Patient/patient petroleum products sales representative demonstrates understanding of disease process, treatment [...] Score of =/> 25 or indicated by [facility] Rehab Assessment Goal: Patient should be free from fall Description: Interventions: 1. [place] to environment 2. Hourly rounds addressing the [...] non-skid footwear 11. Teach patient and patient petroleum products sales representative to maintain environment for safety and [...] (cane, walker) within reach 19. Request patient petroleum products sales representative bring adaptive equipment/mobility aids from home or obtain and provide as needed 20. Consult pharmacy regarding effects of med's affecting mobility, cognition, and alternatives 21. Obtain physician order for PT if risk factors associated with mobility are present 22. Obtain physician order for OT as appropriate 23. Utilize diversional activities 24. Educate patient and patient petroleum products sales representative how to maintain a safe environment during visitation times (notify nurse prior to leaving bedside) 25. Consider appropriateness of medical or non-medical sales 26. Set up voiding schedule as appropriate (every 2 hours) Outcome: Progressing Note: Evaluation of progress towards goal: patient remains free from [facility] Hospital Discharge instructions Denisha Thurston - 07/01/2024 4:48 PM EST YOUR SCHEDULED APPOINTMENTS Please make note of this in your schedule as to not miss or call to reschedule. Thank you! 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 [facility] Progress note Formatting of t his note is different from the original. Images from the original note were not included. DISCHARGE PLANNING NOTE Nurse Monitoring met with patient, introduced self, and explained role. Patient educated on safe discharge plan. Pt admitted 06/29/2024 with Acute blood loss anemia [D62] Fall in home, initial encounter [W19.XXXA, Y92.009] per chart review. Consults: Trauma and Urology Discharge Barriers per Daily Transition Rounds and chart review: PT/OT eval, bilat duplex, oxygen, H&H q12 Past Medical History: Diagnosis Date Cardiac arrest ([facility]) 02/2024 Coronary artery disease Dementia ([facility]) Fall in home, initial encounter 06/29/2024 Hemorrhoids Hyperlipidemia Hypertension Kidney stone Memory loss Myocardial infarction ([facility]) Urinary tract infection Prior to admission patient [...] steps into home. PCP: REINALDO CHAKRABORTY Pharmacy: [facility] PCP and pharmacy confirmed [...] daughter in laws house Sons address is [address] [place] [address] Services Requested: Services Requested Patient expects to [...] Julisa Del Toro RN 07/01/24 2:01 PM [facility] Plan of care note Problem: Pain Goal: Patient goal is pain score less than 4, able to rest, and participant in treatment plan as appropriate Description: INTERVENTIONS: 1. Encourage patient or legal petroleum products sales representative to report early pain and ask [...] per policy 9. Teach patient or legal petroleum products sales representative interventions for comforting Outcome: Progressing Note: [...] at the bedside 7. Instruct patient/ patient petroleum products sales representative about use of safety devices 8. Include patient/ patient petroleum products sales representative in decisions related to safety Outcome: [...] hygiene technique. 7. Identify and instruct patient/patient petroleum products sales representative in use of appropriate isolation precautions for identified infection/symptoms. 8. Provide and discuss with patient/patient petroleum products sales representative on educational MDRO sheet. 9. Encourage and monitor nutritional status daily and consult marble polisher hand if indicated. 10. Implement neutropenic guidelines as needed. Outcome: Progressing Note: Evaluation of progress towards goal: Problem: Knowledge Deficit Goal: Patient/patient petroleum products sales representative demonstrates understanding of disease process, treatment [...] supplement as ordered 13. Collaborate with clinical marble polisher hand 14. Include patient/ patient's petroleum products sales representative in decisions related to nutrition Outcome: [...] Score of =/> 25 or indicated by [facility] Re[facility] Assessment Goal: Patient should be free from fall Description: Interventions: 1. [place] to environment 2. Hourly rounds addressing the [...] non-skid footwear 11. Teach patient and patient petroleum products sales representative to maintain environment for safety and [...] (cane, walker) within reach 19. Request patient petroleum products sales representative bring adaptive equipment/mobility aids from home or obtain and provide as needed 20. Consult pharmacy regarding effects of med's affecting mobility, cognition, and alternatives 21. Obtain physician order for PT if risk factors associated with mobility are present 22. Obtain physician order for OT as appropriate 23. Utilize diversional activities 24. Educate patient and patient petroleum products sales representative how to maintain a safe environment during visitation times (notify nurse prior to leaving bedside) 25. Consider appropriateness of medical or non-medical sales 26. Set up voiding schedule as appropriate (every 2 hours) Outcome: Progressing Note: Evaluation of progress towards goal: Patient remains free from falls and injury, fall risk ID band on, fall prevention education and precautions provided and in place. Hourly rounds maintained, call light in reach, and safety measures in place. Additional Comments: [facility] [employer] [facility] 07-01-2024 Progress note Formatting of t his note is different from the original. Physical Therapy PT Type of Visit: Medical deferral Reason For Medical Deferral: RN deems inappropriate, Activity limitations RN Deems Inappropriate: Failed MOVES safety screen Activity Limitations: Strict bedrest [facility] [employer] [facility] 07-01-2024 Progress note Formatting of t his note is different from the original. Occupational Therapy OT Type of Visit: Medical deferral Reason For Medical Deferral: Activity limitations Activity Limitations: Strict bedrest [facility] 06-30-2024 Plan of care note Problem: Pain Goal: Patient goal is pain score less than 4, able to rest, and participant in treatment plan as appropriate Description: INTERVENTIONS: 1. Encourage patient or legal petroleum products sales representative to report early pain and ask [...] per policy 9. Teach patient or legal petroleum products sales representative interventions for comforting Outcome: Progressing Note: [...] at the bedside 7. Instruct patient/ patient petroleum products sales representative about use of safety devices 8. Include patient/ patient petroleum products sales representative in decisions related to safety Outcome: [...] every shift provided with CHG impregnated wipes [facility] [employer] 06-30-2024 Progress note Formatting of t his note is different from the original. Occupational Therapy OT Type of Visit: Medical deferral Reason For Medical Deferral: Activity limitations RN Deems Inappropriate: Failed MOVES safety screen Activity Limitations: Strict bedrest [facility] 06-30-2024 Progress note Formatting of t his note is different from the original. Physical Therapy PT Type of Visit: Medical deferral Reason For Medical Deferral: Activity limitations RN [place]ems Inappropriate: Failed MOVES safety screen Activity Limitations: Strict bedrest (attempted to see pt for PT initial eval, hold PT a this time d/t failed safety screen with strict bedrest orders; attempt PT as appropriate) [facility] 06-30-2024 Plan of care note Problem: Pain Goal: Patient goal is pain score less than 4, able to rest, and participant in treatment plan as appropriate Description: INTERVENTIONS: 1. Encourage patient or legal petroleum products sales representative to report early pain and ask [...] per policy 9. Teach patient or legal petroleum products sales representative interventions for comforting Outcome: Progressing Note: [...] at the bedside 7. Instruct patient/ patient petroleum products sales representative about use of safety devices 8. Include patient/ patient petroleum products sales representative in decisions related to safety Outcome: [...] every shift provided with CHG impregnated wipes [employer] 06-29-2024 Progress note Formatting of t his [...] by: Shar Schaffer MD 06/29/2024 12:43 PM [facility] 06-29-2024 Progress note Formatting of t his note is different from the original. Occupational Therapy OT Type of Visit: Medical deferral Reason For Medical Deferral: Activity limitations RN Deems Inappropriate: Failed MOVES safety screen Activity Limitations: Strict bedrest [facility] 06-29-2024 Progress note Formatting of t his note is different from the original. Physical Therapy PT Type of Visit: Medical deferral Reason For Medical Deferral: RN deems inappropriate, Activity limitations RN Deems Inappropriate: Failed MOVES safety screen Activity Limitations: Strict bedrest [facility] 06-29-2024 Procedure note Procedure(s): INSERT ARTERIAL LINE [...] for the archer components of the procedure. [employer] Work Phone: 06-29-2024 Procedure note Procedure(s): INSERT [...] of the procedure. documented in this encounter [facility] 06-29-2024 Consult note Associated Order (s): IP [...] at home per son. He presented to [facility]. We will CT scan showed large perinephric [...] History: Diagnosis Date Coronary artery disease Dementia ([facility]) Hemorrhoids Memory loss Myocardial infarction ([facility]) Urinary tract infection Past Surgical [...] Resource Strain: Patient Declined (04/24/2024) Received from [facility] Overall Financial Resource Strain (CARDIA) Difficulty of Paying Living Expenses: Patient declined Food Insecurity: No Food Insecurity (06/29/2024) Hunger Screening Food Insecurity - Worry: Never True Food Insecurity - Inability: Never True Transportation Needs: Patient Declined (04/24/2024) Received from [facility] PRAPARE - Transportation Lack of Transportation (Medical): Patient declined Lack of Transportation (Non-Medical): Patient declined Physical Activity: Patient Declined (04/24/2024) Received from [facility] Exercise Vital Sign Days of Exercise per Week: Patient declined Minutes of Exercise per Session: Patient declined Stress: Patient Declined (04/24/2024) Received from [facility] [place] [employer] - Occupational Stress Questionnaire Feeling of Stress : Patient declined Social Connections: Patient Declined (04/24/2024) Received from [facility] Social Connection and Isolation Panel [NHANES] Frequency of Communication with Friends and Family: Patient declined Frequency of Social Gatherings with Friends and Family: Patient declined Attends Hinduism Services: Patient declined Active Member of Clubs or Organizations: Patient declined Attends Club or Organization Meetings: Patient declined Marital Status: Patient declined Interpersonal Safety: Unknown (04/24/2024) Received from [facility] Humiliation, Afraid, Rape, and Kick questionnaire Fear of Current or Ex-Partner: Patient declined Emotionally Abused: Patient declined Physically Abused: Not on file Sexually Abused: Patient declined Housing Instability: Patient Declined (04/24/2024) Received from [facility] Housing Stability Vital Sign Unable to [...] 74 (!) 26 97 % -- -- 06/29/24 0138 103/54 -- -- 73 (!) 28 99 % -- -- 06/29/24 0135 115/69 -- -- 75 -- 97 % [...] CT abdomen and pelvis with contrast Order: [id number] Status: Final result Visible to patient: No (scheduled for 07/02/2024 8:00 PM) Next appt: None 0 Result Notes Details Reading Physician Reading Date Result Priority Fito Alexander MD [phone] 06/28/2024 STAT Narrative & Impression CT ABDOMEN [...] unless Cr worsens significantly. Transfuse as necessary. [employer] 06-29-2024 History and physical note Images from the original note were not included. Trauma Surgery History & Physical Examination /Consultation Note Patient: Neptali Loyola Date of : 1945 Estimated time of injury: 06/28/24 afternoon LOC: Unknown Transport: EMS from [facility] Trauma level: Level 1 Work related: No History of Present Illness Neptali Loyola is an 78 y.o. White or male presented to [facility] ED via EMS as a level 2 [...] History: Diagnosis Date Coronary artery disease Dementia ([facility]) Hemorrhoids Memory loss Myocardial infarction ([facility]) Urinary tract infection Fall: Fall occurred: standing [...] Resource Strain: Patient Declined (04/24/2024) Received from [facility] Overall Financial Resource Strain (CARDIA) Difficulty of Paying Living Expenses: Patient declined Food Insecurity: No Food Insecurity (06/29/2024) Hunger Screening Food Insecurity - Worry: Never True Food Insecurity - Inability: Never True Transportation Needs: Patient Declined (04/24/2024) Received from [facility] OMRAE - Transportation Lack of Transportation (Medical): Patient declined Lack of Transportation (Non-Medical): Patient declined Physical Activity: Patient Declined (04/24/2024) Received from [facility] Exercise Vital Sign Days of Exercise per Week: Patient declined Minutes of Exercise per Session: Patient declined Stress: Patient Declined (04/24/2024) Received from [facility] [place] [employer] - Occupational Stress Questionnaire Feeling of Stress : Patient declined Social Connections: Patient Declined (04/24/2024) Received from [facility] Social Connection and Isolation Panel [NHANES] Frequency of Communication with Friends and Family: Patient declined Frequency of Social Gatherings with Friends and Family: Patient declined Attends Hinduism Services: Patient declined Active Member of Clubs or Organizations: Patient declined Attends Club or Organization Meetings: Patient declined Marital Status: Patient declined Interpersonal Safety: Unknown (04/24/2024) Received from [facility] Humiliation, Afraid, Rape, and Kick questionnaire Fear of Current or Ex-Partner: Patient declined Emotionally Abused: Patient declined Physically Abused: Not on file Sexually Abused: Patient declined Housing Instability: Patient Declined (04/24/2024) Received from [facility] Housing Stability Vital Sign Unable to [...] Result Value Ref Range Blood component type [id number] Unit number [id number] Unit ABO O Unit RH POS Crossmatch Compatible Status of unit ISSUED Expiration Date [id number] BB Type Barcode 5100 ABO Rh Repeat Collection Time: 06/29/24 1:30 AM Result Value Ref Range ABO A RH Positive Crossmatch RBC: Collection Time: 06/29/24 1:30 AM Result Value Ref Range Blood component type F1589L16 Unit number [id number] Unit ABO O Unit RH POS Crossmatch Compatible Status of unit SELECTED Expiration Date [id number] BB Type Barcode 5100 Crossmatch RBC: Collection Time: 06/29/24 1:30 AM Result Value Ref Range Blood component type [id number] Unit number [id number] Unit ABO O Unit RH POS Crossmatch Compatible Status of unit SELECTED Expiration Date [id number] BB Type Barcode 5100 Crossmatch RBC: Collection Time: 06/29/24 1:30 AM Result Value Ref Range Blood component type [id number] Unit number [id number] Unit ABO O Unit RH POS Crossmatch Compatible Status of unit SELECTED Expiration Date [id number] BB Type Barcode 5100 Crossmatch RBC: Collection Time: 06/29/24 1:30 AM Result Value Ref Range Blood component type [id number] Unit number [id number] Unit ABO O Unit RH POS Status of unit ISSUED Expiration Date [id number] BB Type Barcode 5100 Crossmatch RBC: Collection Time: 06/29/24 1:30 AM Result Value Ref Range Blood component type Y7033Y64 Unit number [id number] Unit ABO O Unit RH POS Status of unit ISSUED Expiration Date [id number] BB Type Barcode 5100 Crossmatch RBC: Collection Time: 06/29/24 1:30 AM Result Value Ref Range Blood component type I4007T63 Unit number [id number] Unit ABO O Unit RH POS Status of unit ISSUED Expiration Date [id number] BB Type Barcode 5100 Crossmatch RBC: Collection Time: 06/29/24 1:30 AM Result Value Ref Range Blood component type I1056P17 Unit number [id number] Unit ABO O Unit RH POS Status of unit /RELEASED Expiration Date BB Type Barcode 5100 Crossmatch RBC: Collection Time: 06/29/24 1:30 AM Result Value Ref Range Blood component type P1324T78 Unit number [id number] Unit ABO O Unit RH POS Status of unit /RELEASED Expiration Date BB Type Barcode 5100 Crossmatch RBC: Collection Time: 06/29/24 1:30 AM Result Value Ref Range Blood component type G3293A21 Unit number [id number] Unit ABO O Unit RH POS Status of unit /RELEASED Expiration Date [id number] BB Type Barcode 5100 Protime & INR [...] Procedure Component Value - Date/Time Urine culture [[id number]] Resulted: 06/29/24 0320 Lab Status: In process Specimen: Urine Updated: 06/29/24 0331 Urine culture [[id number]] Collected: 06/28/24 2100 Lab Status: No result Specimen: Urine Blood culture, peripheral #2 [[id number]] Collected: 06/28/24 1907 Lab Status: In process Specimen: Blood, Peripheral Draw Updated: 06/28/24 191 Blood culture, peripheral #1 [[id number]] Collected: 06/28/24 1859 Lab Status: In process Specimen: Blood, Peripheral Draw Updated: 06/28/241913 SARS/FLU A+B/RSV by NAAT/Molecular (M4RT Collection Tube) [[id number]] Collected: 06/28/24 181 Lab Status: Final result [...] operators who are performing tests using either [employer] or Ste[employer] or [employer] systems and is limited to laboratories that [...] specimen repeat. Fact Sheet for Healthcare Providers: https://www.fda.gov/media/667880/do wnload Fact Sheet for Patients: https://www.fda.gov/media/557871/do wnload Independently reviewed trauma specific results. Radiology [...] is 56.5 and plateaued after trending upward. PHYSICIAN VICE PRESIDENT RVP 85.0% Independently reviewed radiographic studies to [...] PRN Comorbidities/Medical issues: Neuro- Pulm- Cardio- CAD, [place], HTN GI- - CKD, nephrolithiasis Heme- ID- [...] can be reached via Patient Touch Pager: [phone] Cosigned by Ru Schwarz MD at 06/29/2024 [...] left perinephric hematoma. Patient was transferred to [facility] as a level 2 trauma activation. Due to hypotension he was upgraded to a level 1 activation. Patient evaluated by ATLS protocol. Initial GCS of 15. To crystalloid infusion and then 1 PRBC. No additional testing was done. Patient to be admitted to the surgical intensive care unit with consultation to urology [facility] [employer] Work Phone: 06-29-2024 History and physical note Images from the original note were not included. Trauma Surgery History & Physical Examination /Consultation Note Patient: Neptali Loyola Date of : 1945 Estimated time of injury: 06/28/24 afternoon LOC: Unknown Transport: EMS from [facility] Trauma level: Level 1 Work related: No History of Present Illness Neptali Loyola is an 78 y.o. White or male presented to [facility] ED via EMS as a level 2 [...] History: Diagnosis Date Coronary artery disease Dementia ([facility]) Hemorrhoids Memory loss Myocardial infarction ([facility]) Urinary tract infection Fall: Fall [...] Resource Strain: Patient Declined (04/24/2024) Received from [facility] Overall Financial Resource Strain (CARDIA) Difficulty of Paying Living Expenses: Patient declined Food Insecurity: No Food Insecurity (06/29/2024) Hunger Screening Food Insecurity - Worry: Never True Food Insecurity - Inability: Never True Transportation Needs: Patient Declined (04/24/2024) Received from [facility] TA - Transportation Lack of Transportation (Medical): Patient declined Lack of Transportation (Non-Medical): Patient declined Physical Activity: Patient Declined (04/24/2024) Received from [facility] Exercise Vital Sign Days of Exercise per Week: Patient declined Minutes of Exercise per Session: Patient declined Stress: Patient Declined (04/24/2024) Received from [facility] [place] [employer] - Occupational Stress Questionnaire Feeling of Stress : Patient declined Social Connections: Patient Declined (04/24/2024) Received from [facility] Social Connection and Isolation Panel [NHANES] Frequency of Communication with Friends and Family: Patient declined Frequency of Social Gatherings with Friends and Family: Patient declined Attends Hinduism Services: Patient declined Active Member of Clubs or Organizations: Patient declined Attends Club or Organization Meetings: Patient declined Marital Status: Patient declined Interpersonal Safety: Unknown (04/24/2024) Received from [facility] Humiliation, Afraid, Rape, and Kick questionnaire Fear of Current or Ex-Partner: Patient declined Emotionally Abused: Patient declined Physically Abused: Not on file Sexually Abused: Patient declined Housing Instability: Patient Declined (04/24/2024) Received from [facility] Housing Stability Vital Sign Unable to [...] Result Value Ref Range Blood component type [id number] Unit number [id number] Unit ABO O Unit RH POS Crossmatch Compatible Status of unit ISSUED Expiration Date [id number] BB Type Barcode 5100 ABO Rh Repeat Collection Time: 06/29/24 1:30 AM Result Value Ref Range ABO A RH Positive Crossmatch RBC: Collection Time: 06/29/24 1:30 AM Result Value Ref Range Blood component type E9902H46 Unit number [id number] Unit ABO O Unit RH POS Crossmatch Compatible Status of unit SELECTED Expiration Date [id number] BB Type Barcode 5100 Crossmatch RBC: Collection Time: 06/29/24 1:30 AM Result Value Ref Range Blood component type C8945H75 Unit number [id number] Unit ABO O Unit RH POS Crossmatch Compatible Status of unit SELECTED Expiration Date [id number] BB Type Barcode 5100 Crossmatch RBC: Collection Time: 06/29/24 1:30 AM Result Value Ref Range Blood component type I2225T43 Unit number [id number] Unit ABO O Unit RH POS Crossmatch Compatible Status of unit SELECTED Expiration Date [id number] BB Type Barcode 5100 Crossmatch RBC: Collection Time: 06/29/24 1:30 AM Result Value Ref Range Blood component type I5066J70 Unit number [id number] Unit ABO O Unit RH POS Status of unit ISSUED Expiration Date [id number] BB Type Barcode 5100 Crossmatch RBC: Collection Time: 06/29/24 1:30 AM Result Value Ref Range Blood component type S5462T01 Unit number [id number] Unit ABO O Unit RH POS Status of unit ISSUED Expiration Date [id number] BB Type Barcode 5100 Crossmatch RBC: Collection Time: 06/29/24 1:30 AM Result Value Ref Range Blood component type F7777Y89 Unit number [id number] Unit ABO O Unit RH POS Status of unit ISSUED Expiration Date [id number] BB Type Barcode 5100 Crossmatch RBC: Collection Time: 06/29/24 1:30 AM Result Value Ref Range Blood component type V9225V77 Unit number [id number] Unit ABO O Unit RH POS Status of unit /RELEASED Expiration Date BB Type Barcode 5100 Crossmatch RBC: Collection Time: 06/29/24 1:30 AM Result Value Ref Range Blood component type A5566N14 Unit number [id number] Unit ABO O Unit RH POS Status of unit /RELEASED Expiration Date [id number] BB Type Barcode 5100 Crossmatch RBC: Collection Time: 06/29/24 1:30 AM Result Value Ref Range Blood component type C8819L21 Unit number [id number] Unit ABO O Unit RH POS Status of unit /RELEASED Expiration Date [id number] BB Type Barcode 5100 Protime & INR [...] Procedure Component Value - Date/Time Urine culture [[id number]] Resulted: 06/29/24 0320 Lab Status: In process Specimen: Urine Updated: 06/29/24 0331 Urine culture [[id number]] Collected: 06/28/24 2100 Lab Status: No result Specimen: Urine Blood culture, peripheral #2 [[id number]] Collected: 06/28/24 1907 Lab Status: In process Specimen: Blood, Peripheral Draw Updated: 06/28/241913 Blood culture, peripheral #1 [[id number]] Collected: 06/28/24 1859 Lab Status: In process Specimen: Blood, Peripheral Draw Updated: 06/28/241913 SARS/FLU A+B/RSV by NAAT/Molecular (M4RT Collection Tube) [[id number]] Collected: 06/28/24 181 Lab Status: Final result [...] operators who are performing tests using either GeneXPer Vices DX or GenePhase Focus Infinity systems and is limited to laboratories [...] specimen repeat. Fact Sheet for Healthcare Providers: https://www.fda.gov/media/951052/do wnload Fact Sheet for Patients: https://www.fda.gov/media/465885/do wnload Independently reviewed trauma specific results. Radiology [...] is 56.5 and plateaued after trending upward. PHYSICIAN VICE PRESIDENT RVP 85.0% Independently reviewed radiographic studies to [...] to painful stimuli 6 Obeys commands CAGE-AID Randal Hartley. [place] [facility] 1994 Have you felt [...] PRN Comorbidities/Medical issues: Neuro- Pulm- Cardio- CAD, WI, HTN GI- - CKD, nephrolithiasis Heme- ID- MSK- Endo- Lytes- Lines and Tubes: Jorgensen, PIVs Nutrition: NPO Prophylaxis: SCDs, hold chemical ppx Disposition: SICU Medical Decision Making: High ER Procedures: 1. none CONSULTATIONS Consultations:Urology Did consultants call back in 10min: yes Trauma Team Present: Valdo DENNEY Trauma Team Arrival time: 0115 Attending: Dr. Ru Schwarz MD saw patient at arrival SWEETIE FOSTER MD 06/29/24 4:10 AM Trauma can be reached via Patient Touch Pager: [phone] Cosigned by Ru Schwarz MD at 06/29/2024 [...] left perinephric hematoma. Patient was transferred to [facility] as a level 2 trauma activation. Due to hypotension he was upgraded to a level 1 activation. Patient evaluated by ATLS protocol. Initial GCS of 15. To crystalloid infusion and then 1 PRBC. No additional testing was done. Patient to be admitted to the surgical intensive care unit with consultation to urology documented in this encounter [facility] 06-29-2024 Consult note Associated Order (s): IP CONSULT TO SUPPORT DBA SICU Academic Critical Care CONSULTATION Name: Neptali Loyola Date: 06/29/2024 Length of Stay: 0 day(s) Chief Concern: Chief Complaint Patient presents with Trauma History of Present Illness Neptali Loyola is an 78 y.o. White or male presented to [facility] ED via EMS as a level 2 [...] History: Diagnosis Date Coronary artery disease Dementia ([facility]) Hemorrhoids Memory loss Myocardial infarction ([facility]) Urinary tract infection History reviewed. No pertinent [...] Resource Strain: Patient Declined (04/24/2024) Received from [facility] Overall Financial Resource Strain (CARDIA) Difficulty of Paying Living Expenses: Patient declined Food Insecurity: No Food Insecurity (06/29/2024) Hunger Screening Food Insecurity - Worry: Never True Food Insecurity - Inability: Never True Transportation Needs: Patient Declined (04/24/2024) Received from [facility] TA - Transportation Lack of Transportation (Medical): Patient declined Lack of Transportation (Non-Medical): Patient declined Physical Activity: Patient Declined (04/24/2024) Received from [facility] Exercise Vital Sign Days of Exercise per Week: Patient declined Minutes of Exercise per Session: Patient declined Stress: Patient Declined (04/24/2024) Received from [facility] [place] of Occupational Health - Occupational Stress Questionnaire Feeling of Stress : Patient declined Social Connections: Patient Declined (04/24/2024) Received from [facility] Social Connection and Isolation Panel [NHANES] Frequency of Communication with Friends and Family: Patient declined Frequency of Social Gatherings with Friends and Family: Patient declined Attends Hinduism Services: Patient declined Active Member of Clubs or Organizations: Patient declined Attends Club or Organization Meetings: Patient declined Marital Status: Patient declined Interpersonal Safety: Unknown (04/24/2024) Received from [facility] Humiliation, Afraid, Rape, and Kick questionnaire Fear of Current or Ex-Partner: Patient declined Emotionally Abused: Patient declined Sexually Abused: Patient declined Housing Instability: Patient Declined (04/24/2024) Received from [facility] Housing Stability Vital Sign Unable to [...] Procedure Component Value Units Date/Time Urine culture [[id number]] Resulted: 06/29/24 0320 Specimen: Urine Updated: 06/29/24 033 Blood culture, peripheral #2 [[id number]] Collected: 06/28/241906 Specimen: Blood, Peripheral Draw Updated: 06/28/241913 Blood culture, peripheral #1 [[id number]] Collected: 06/28/241858 Specimen: Blood, Peripheral Draw Updated: 06/28/241913 SARS/FLU A+B/RSV by NAAT/Molecular (M4RT Collection Tube) [[id number]] Collected: 06/28/241809 Specimen: Nasopharynx Updated: 06/28/241946 FLU [...] Procedure Component Value Units Date/Time Urine culture [[id number]] Resulted: 06/29/24319 Specimen: Urine Updated: 06/29/24330 Blood culture, peripheral #2 [[id number]] Collected: 06/28/241906 Specimen: Blood, Peripheral Draw Updated: 06/28/241913 Blood culture, peripheral #1 [[id number]] Collected: 06/28/241858 Specimen: Blood, Peripheral Draw Updated: 06/28/241913 SARS/FLU A+B/RSV by NAAT/Molecular (M4RT Collection Tube) [[id number]] Collected: 06/28/241809 Specimen: Nasopharynx Updated: 06/28/241946 FLU A PCR Negative FLU B PCR Negative RSV by PCR Negative SARS CoV 2 BY PCR Not Detected Lines/Drains Peripheral IV 06/28/24 Posterior;Right Hand (Active) Line Status No blood return;Saline locked;Flushed;Alcohol sponge cap changed;Connections checked/tightened 06/29/24319 Site Assessment Clean;Dry;Intact 06/29/24 032 Dressing Type Occlusive;Transparent 06/29/24 032 Dressing Status Clean;Dry;Intact 06/29/24 032 Specimen Obtained Yes 06/28/241804 Specimen Status Sent [...] (Describe) 06/29/24319 Tamper Evident Seal Intact Yes 06/29/24 032 Reason for Continuing Strict I&O in critically [...] Meds: None PMH: CAD, hypertension, hyperlipidemia, previous WI, AFib Home meds: Eliquis, Plavix 3. Resp: [...] and titration of care by critical care city attorney. Failure to do so may result in [...] MD Trauma/Surgical Critical Care 06/29/2024 10:06 AM [employer] Work Phone: 06-29-2024 Emergency department Note Pt Blood infusion rate changed to 200 ml/hr by Roxane MCGINNIS, no adverse reactions noted from pt [employer] 06-29-2024 Emergency department Note Pt Blood infusion rate changed to 200 ml/hr by Roxane MCGINNIS, no adverse reactions noted from pt Bed: 18 Expected date: Expected time: Means of arrival: Comments: T1 Pt arrives to the ED as [facility] Adult level two Trauma transfer. Pt is [...] from the original note were not included. [facility] - EMERGENCY DEPARTMENT Pt Name: Neptali Loyola Birthdate: 1945 Chief Complaint: No chief complaint on file. History of Present Illness: Initial evaluation by Dr. Jaimes (attending) and Dr. Chiang (resident) at 1:30 AM 78 y.o. male patient presents to the ED via EMS as a level 2 trauma alert for evaluation of fall. Patient presented to an [facility] ER after his legs gave out [...] much information himself. Son gave history to machine shop helper. 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 and medical records Past Medical History: Past Medical History: Diagnosis Date Coronary artery disease Dementia ([facility]) Hemorrhoids Memory loss Myocardial infarction ([facility]) Urinary tract infection Past Surgical History: No [...] Resource Strain: Patient Declined (04/24/2024) Received from [facility] Overall Financial Resource Strain (CARDIA) Difficulty of Paying Living Expenses: Patient declined Food Insecurity: No Food Insecurity (06/28/2024) Hunger Screening Food Insecurity - Worry: Never True Food Insecurity - Inability: Never True Transportation Needs: Patient Declined (04/24/2024) Received from [facility] TA - Transportation Lack of Transportation (Medical): Patient declined Lack of Transportation (Non-Medical): Patient declined Physical Activity: Patient Declined (04/24/2024) Received from [facility] Exercise Vital Sign Days of Exercise per Week: Patient declined Minutes of Exercise per Session: Patient declined Stress: Patient Declined (04/24/2024) Received from [facility] [place] of Occupational Health - Occupational Stress Questionnaire Feeling of Stress : Patient declined Social Connections: Patient Declined (04/24/2024) Received from [facility] Social Connection and Isolation Panel [NHANES] Frequency of Communication with Friends and Family: Patient declined Frequency of Social Gatherings with Friends and Family: Patient declined Attends Hinduism Services: Patient declined Active Member of Clubs or Organizations: Patient declined Attends Club or Organization Meetings: Patient declined Marital Status: Patient declined Interpersonal Safety: Unknown (04/24/2024) Received from [facility] Humiliation, Afraid, Rape, and Kick questionnaire Fear of Current or Ex-Partner: Patient declined Emotionally Abused: Patient declined Sexually Abused: Patient declined Housing Instability: Patient Declined (04/24/2024) Received from [facility] Stability Vital Sign Unable to Pay for [...] Course. ED Course: ED Course as of 06/29/24256 Sat Jun 29, 2024137 Patient is a 78-year-old male with a [...] with stent placed earlier this month at [facility]. CT at original facility demonstrated postop [...] team was at bedside in the [facility] [place] at time of patient's arrival. Additional labs [...] Mookie Chiang DO Clinical Impressions as of 06/29/24256 Fall in home, initial encounter Acute blood [...] Attestation: Dr. Fiona Herrera personally performed a hean-bc-ndbl diagnostic evaluation on this patient. I have [...] MD at 06/30/2024 6:33 AM EST Neptali Loyola (: 45) - Level [address] Schwarz, Fall / Renal Lac 78M, Hx: Afib on Eliquis. Patient had recent lithotripsy with stent earlier this month (at [facility]). CT showing post-op changes left kidney, active extravasation. Dr. Schwarz reviewed CT. It was a ground level fall onto his left side, also striking his face. [place] to reverse his Eliquis before sending patient. Vitals: 108/44, HR 78, RR 22, 98% on RA. RN Report from [facility] @ 0041 Arrived for dizziness Lithotripsy recently Hypotensive on arrival 68/48 Son reported pt fell face first LAND LAW EXAMINER 1L saline, 1700mL LR IV in R [...] [facility] Comments: 78 y/o male A&Ox4 [place] Level 2 trauma transfer HR 65 97% RA RR 16 95/49 500mL bolus initiated by EMS ETA 10 min documented in this encounter [facility] 06-29-2024 Emergency department Note Bed: 18 Expected date: Expected time: Means of arrival: Comments: T1 [facility] 06-29-2024 Emergency department Triage note Pt arrives to the ED as [facility] Adult level two Trauma transfer. Pt is alert, and oriented and able to answer questions appropriately. Pt arrive with bilateral IVS, and a jorgensen catheter in place. Pt was upgraded to adult level 1 trauma by Trauma Team on arrival. Pt hypotensive on arrival. [facility] 06-29-2024 Emergency department Note Chest xray obtained at this time [facility] 06-29-2024 Emergency department Note EMS stretcher to bed [facility] 06-29-2024 Emergency department Note Pt arrived to ED T1 [facility] 06-29-2024 Physician Emergency department Note Images from the original note were not included. [facility] - EMERGENCY DEPARTMENT Pt Name: Neptali Loyola Birthdate: 1945 Chief Complaint: No chief complaint on file. History of Present Illness: Initial evaluation by Dr. Jaimes (attending) and Dr. Chiang (resident) at 1:30 AM 78 y.o. male patient presents to the ED via EMS as a level 2 trauma alert for evaluation of fall. Patient presented to an [facility] ER after his legs gave out [...] much information himself. Son gave history to machine shop helper. 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 and medical records Past Medical History: Past Medical History: Diagnosis Date Coronary artery disease Dementia ([facility]) Hemorrhoids Memory loss Myocardial infarction ([facility]) Urinary tract infection Past Surgical History: No [...] Resource Strain: Patient Declined (04/24/2024) Received from [facility] Overall Financial Resource Strain (CARDIA) Difficulty of Paying Living Expenses: Patient declined Food Insecurity: No Food Insecurity (06/28/2024) Hunger Screening Food Insecurity - Worry: Never True Food Insecurity - Inability: Never True Transportation Needs: Patient Declined (04/24/2024) Received from [facility] PRAPARE - Transportation Lack of Transportation (Medical): Patient declined Lack of Transportation (Non-Medical): Patient declined Physical Activity: Patient Declined (04/24/2024) Received from [facility] Exercise Vital Sign Days of Exercise per Week: Patient declined Minutes of Exercise per Session: Patient declined Stress: Patient Declined (04/24/2024) Received from [facility] [place] of Occupational Health - Occupational Stress Questionnaire Feeling of Stress : Patient declined Social Connections: Patient Declined (04/24/2024) Received from [facility] Social Connection and Isolation Panel [NHANES] Frequency of Communication with Friends and Family: Patient declined Frequency of Social Gatherings with Friends and Family: Patient declined Attends Hinduism Services: Patient declined Active Member of Clubs or Organizations: Patient declined Attends Club or Organization Meetings: Patient declined Marital Status: Patient declined Interpersonal Safety: Unknown (04/24/2024) Received from [facility] Humiliation, Afraid, Rape, and Kick questionnaire Fear of Current or Ex-Partner: Patient declined Emotionally Abused: Patient declined Sexually Abused: Patient declined Housing Instability: Patient Declined (04/24/2024) Received from [facility] Housing Stability Vital Sign Unable to [...] with stent placed earlier this month at [facility]. CT at original facility demonstrated postop [...] team was at bedside in the [facility] [place] at time of patient's arrival. Additional labs [...] Attestation: Dr. Fiona Herrera personally performed a duvo-ub-biye diagnostic evaluation on this patient. I have [...] 06/29/24 0150 Ernesto Noel 06/29/24 0340 Mookie Chaing DO Resident 06/29/24 0340 Cosigned by Antoine Burleson Do, MD at 06/30/2024 6:33 AM EST [facility] 06-29-2024 Emergency department Note Neptali Loyola (: 45) - Level [address] Schwarz, Fall / Renal Lac 78M, Hx: Afib on Eliquis. Patient had recent lithotripsy with stent earlier this month (at [facility]). CT showing post-op changes left kidney, active extravasation. Dr. Schwarz reviewed CT. It was a ground level fall onto his left side, also striking his face. [place] to reverse his Eliquis before sending patient. Vitals: 108/44, HR 78, RR 22, 98% on RA. RN Report from [facility] @ 0041 Arrived for dizziness Lithotripsy recently Hypotensive on arrival 68/48 Son reported pt fell face first LAND LAW EXAMINER 1L saline, 1700mL LR IV in R [...] oriented but occasionally forgetful Left @ 0035 [facility] 06-29-2024 Emergency department Note Bed: T1 Expected date: Expected time: [facility]: 78 y/[facility] male A&Ox4 [facility] Level 2 trauma transfer HR 65 97% RA RR 16 95/49 500mL bolus initiated by EMS ETA 10 min S5 [facility] 06-19-2024 Note [facility] 06-19-2024 Note [facility] 05-21-2024 Note [facility] 05-21-2024 Note [facility] 04-24-2024 Note [facility] 04-24-2024 Note [facility] 04-19-2024 Note [facility] 04-02-2024 Note [facility] 04-02-2024 Note [facility] 03-13-2024 Note [facility] 03-06-2024 Note [facility] 03-06-2024 Note [facility] 03-06-2024 Note [facility] 03-06-2024 Note [facility] 03-05-2024 Note [facility] 03-05-2024 Note [facility] 03-05-2024 Note [facility] 03-05-2024 Note [facility] 03-05-2024 Note [facility] 03-04-2024 Note [facility] 03-04-2024 Note [facility] 03-04-2024 Note Physical Therapy PM Cancellation note Monday03/04/2024 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 Attempted time : 14:08-14:10 [facility] 03-04-2024 Note [facility] 03-04-2024 Note [facility] 03-04-2024 Note [facility] 03-03-2024 Note [facility] 03-03-2024 Note Sent updates to Lino conn at the [place]. [facility] 03-02-2024 Note [facility] 03-02-2024 Note [facility] 03-02-2024 Note [facility] 03-02-2024 Note [facility] 03-01-2024 Note [facility] 03-01-2024 Note [facility] 03-01-2024 Note [facility] 03-01-2024 Note [facility] 02-29-2024 Note [facility] 02-29-2024 Note [facility] 02-29-2024 Note [facility] 02-29-2024 Note [facility] 02-29-2024 Note [facility] 02-29-2024 Note [facility] 02-29-2024 Note [facility] 02-28-2024 Note [facility] 02-28-2024 Note [facility] 02-28-2024 Note Physical Therapy Patient medically unstable, not appropriate for PT evaluation. Will follow up and evaluate as appropriate. Kuldeep Garces PT, DPT [facility] 02-28-2024 Note Occupational Therapy Name: Neptali Loyola Date of : 1945 Today's Date: 02/28/24 Pt is unable to be seen for therapy at this time secondary to Medically unstable per nsg . Check No Charge Time attempted: 908 [facility] 02-28-2024 Note Discharge Planning U pdate: 0906 Attempted to see patient but was unsuccessful as patient is currently having severe difficulty breathing & talking so they may possible be intubated soon if needed. OTM to follow. [facility] 02-28-2024 Note [facility] 02-28-2024 Note [facility] 02-27-2024 Note [facility] 02-27-2024 Note [facility] 02-27-2024 Note [facility] 02-27-2024 Note [facility] 02-26-2024 Note [facility] 02-26-2024 Note [facility] 02-09-2024 Note [facility] 01-10-2024 Note [facility] 01-10-2024 Note [facility] Evaluation + Plan note No data available for this section [facility] Evaluation note No assessment information [facility] Work Phone: Evaluation note Diagnosis Fall in home, initial encounter- Primary Fall in home, initial encounter Acute blood loss anemia Acute posthemorrhagic anemia documented in this encounter [facility] Discharge instructions No data available for this section [facility] InstructionsNot on filedocumented in this encounter [facility] No data available for this section [facility] Summary Purpose Family History No Family [...] May 15, 2024 End: May 15, 2024 Wood Mill 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 Relationship Specialty Start Date End Date Miguel Garcia APRN-AIRBRUSH ARTIST [address] [place] [id number] [phone] PCP - [facility] 02/22/24 [employer] Supervisor Relationship Specialty Start Date End Date Miguel Garcia APRN-AIRBRUSH ARTIST [address] [place] [phone] PCP - [facility] 02/22/24 Team Status: Inactive Member Role Status Dates Kelvin Langston MD Attending Provider Active Start: August 29, 2024 End: August 29, 2024 (unrecognized sect ion and content) No Status Records FoundNo Status Records FoundNo Status Records FoundNo Status Records FoundNo Status Records Found INFORMATION SOURCE (unrecogn ized section and content) DATE CREATED AUTHOR 01/03/2024 [facility] DATE CREATED AUTHOR AUTHOR'S ORGANIZ ATION 07/17/2024 [facility] DATE CREATED AUTHOR AUTHOR'S ORGANIZ ATION 08/10/2024 [facility] DATE CREATED AUTHOR AUTHOR'S ORGANIZ ATION 09/01/2024 [facility] DATE CREATED AUTHOR AUTHOR'S ORGANIZ ATION 01/07/2025 [facility] Goals (unrecognized section and content) Goals may be documented in a n alternate section Reason for Visit (unrecogniz ed section and content) Reason Comments Trauma Specialty Diagnoses / Procedures Referred By Shasha t Referred To Contact Diagnoses Fall in home, initial encounter Ru Schwarz MD [id number] [place] [address] Phone: tel: fax: Referral ID Status Reason Start Date Expiration Date Visits Re quested Visits Authorized [id number] 1 1 Reason Onset Date Comments Blood in Urine 07/05/2024 Scheduled Active and Recently Administ ered Medications (unrecognized section and content) Medication Order 07/02/2024 07/03/2024 07/04/2024 amiodarone (PACERONE) tablet 200 mg 200 mg, oral, 2 times daily, First dose on 06/29/24 at 2100, Look-alike/sound-alike medication - verify indication for use. 08 (Given - Provider: Kaylah Maxwell RN)2122 (Given - Provider: Jazmín Hansen RN) 902 (Given - Provider: Randolph Laguerre, RAS)2058 (Given - Provider: Zelda Vasquez RN) 100 (Given - Provider: Arjun Buchanan RN) apixaban [...] 80 mg, oral, Nightly, First dose on 06/29/24 at 2200, Look-alike/sound-alike medication - verify indication for use. 2122 (Given - Provider: Jazmín Hansen RN) 2100 (Given - Provider: Zelda Vasquez, RAS) carvediloL (COREG) tablet 3.125 mg 3.125 mg, oral, 2 times daily, First dose on 07/02/24 at 1015, Give with meal or snack. Look-alike/sound-alike medication - verify indication for use. 1157 (Given - Provider: Kaylah Maxwell RN)2122 (Given - Provider: Jazmín Hansen RN) 902 (Given - Provider: Randolph Laguerre, RAS)2057 (Given - Provider: Zelda Vasquez RN) 1003 (Given - Provider: Arjun Buchanan, RN) clopidogreL (PLAVIX) tablet 75 mg 75 mg, oral, Daily, First dose on Mon07/03/24 at 1115, Look-alike/sound-alike medication - verify indication for use. 1214 (Given - Provider: Randolph Laguerre, RAS) 1003 [...] Ulcer Prophylaxis 08 (Given - Provider: Kaylah Maxwell, RAS) 903 (Given - Provider: Randolph Laguerre, RAS) [...] refused) 0903 (Medication Applied - Provider: Randolph Laguerre, RAS)1600 (Canceled Entry - Provider: Randolph Laguerre RN) lidocaine (LIDODERM) 5 % 1 patch 1 patch, transdermal, Administer over 12 Hours, Daily, First dose (after last modification) on [place] 07/04/24 at 0900, ED to IP Admission, [...] daily, First dose on 06/29/24 at 2100 08 (Given - Provider: Kaylah Maxwell RN)2122 (Given - Provider: Jazmín Hansen RN) 903 (Given - Provider: Randolph Laguerre, RN)2057 (Given - Provider: Zelda Vasquez, RN) 100 (Given - Provider: Arjun Buchanan, RN) polyethylene glycol (GLYCOLAX) packet 17 g (CANCELED) 17 g, oral, Daily, First dose on 06/29/24 at 0900, ED to IP Admission, Look-alike/sound-alike medication - verify indication for use. Dissolve 1 packet (17 gm) in 8 ounces of water, juice, soda, coffee or tea. 828 (Given - Provider: Kaylah Maxwell RN) 899 (Given - Provider: Randolph Laguerre, RAS - [...] 2057 (Given - Provider: Zelda Vasquez, RAS) 1002 (Given - Provider: Arjun Buchanan, RN) sennosides-docusate sodium (SENOKOT-S) 8.6-50 mg 2 tablet 2 tablet, oral, 2 times daily, First dose on 06/29/24 at 0900, ED to IP Admission 0829 (Given - Provider: Kaylah Maxwell, RAS)2122 (Given - Provider: Jazmín Hansen, RN) 902 (Given - Provider: Randolph Laguerre, RAS)2057 (Given - Provider: Zelda Vasquez, RAS) 100 (Given - Provider: Arjun Buchanan, RN) sodium chloride 0.9 % flush 3 mL 3 mL, intravenous, Every 12 hours scheduled, First dose on 06/29/24 at 0900, ED to IP Admission 0830 (Given - Provider: Kaylah Maxwell RN)2122 (Given - Provider: Jazmín Hansen RN) 0904 (Given - Provider: Randolph Lageurre, RN)2057 (Given - Provider: Zelda Vasquez, RN) 0900 (Given - Provider: Arjun Buchanan RN) spironolactone (ALDACTONE) tablet 12.5 mg 12.5 mg, oral, Nightly, First dose on Mon07/02/24 at 2200 2122 (Given - Provider: Jazmín Hansen RN) 2100 (Given - Provider: Zelda Vasquez, RN) PRN Medication Order 07/02/2024 07/03/2024 07/04/2024 acetaminophen [...] VESICANT (RED) Warning: HYPERTONIC solution. flu vacc [id number] 6mos up(PF) (FLULAVAL/FLUZONE/FLUARIX TRIV) injection syringe 0.5 [...] BE BASED ON THE PRIMARY CLINICAL RECORDS. [employer] provides no warranty or guarantee of the accuracy or completeness of information in this document.
== END 2025-01-08 08:46 | disposition home or self-care (01) ==
LOC: CARD 08:45
PROVIDERS: PCP Family Medicine; Visit Provider Nurse Practitioner Family
DX: Z79.899 Other long term (current) drug therapy (principal); I70.219 Atherosclerosis of native arteries of extremities with intermittent claudication, unspecified extremity; R60.0 Localized edema; N20.0 Calculus of kidney; N28.1 Cyst of kidney, acquired
CPT/HCPCS: 76775; 93970; 94010; 94726

== ENCOUNTER 2025-01-08 09:58 | Outpatient (OUT) | payer MEDICARE, SELFPAY ==
--- OUTSIDE RECORDS SUMMARY | 2025-01-08 10:18 | XMS_ITS | CCD ---
Author Organization [facility] Care Team Providers Care Category Specialist Name Role Phone JAD MITCHELL Primary Care Physician Nova Wang Attending Unavailable TABITHA LEUNG Attending Unavailable Nova Wang Referring Unavailable Nova Wang Attending Unavailable Nova Wang Attending Unavailable Nova Wang Referring Unavailable Nova Wang Attending Unavailable Kelvin Langston MD Attending Provider [phone] Radha LEADITE MAN-CHIEF CREW SCHEDULER, Miguel S Primary Care Provider RADHA, MIGUEL S Primary Care Unavailable ALFRED VALENZEULA Consulting Unavailable RU SCHWARZ Admitting Unavailable RU [...] Attending Unavailable Ivis, Kelvin O Admitting Unavailable Kevlin Langston MD Attending Provider [phone] PRADEEP, ABE Referring Unavailable EKWENNA, OBI Attending Unavailable JAXON RAY Referring Unavailable EVELYNALTAGRACIA Attending Unavailable HERCHERBERKEETA Attending Unavailable EKWENNA, OBI Attending Unavailable EKWENNA, [...] Discharge) docusate sodium 50 mg / sennosides, assisted 8.6 mg oral tablet (1 source) Start: [...] hydrochloride 10 mg oral tablet (4 sources) X-bxkruw-G-asp artate Receptor Antagonist Start: 06-29-2024 End: 07-04-2024 take 10 mg by mouth twice daily 10 mg, oral, 2 times daily, First dose on Mon06/29/24 at 2100 Start: 06-18-2024 take 1 capsule by [facility] every twenty-four hours in the morning [...] Administer over 2-5 minutes. 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; Translations: [Old [...] Interpretation Reference Range Facility Follow-Upon 01-06-2025 Follow-Up [facility] Orders Onlyon 12-29-2024 Orders Only Normal [facility] ANESon 12-19-2024 ANES Normal [facility] HPon 12-19-2024 HP Normal [facility] NURSNOTEon 12-19-2024 NURSNOTE Normal [facility] HPon 12-09-2024 HP Normal [facility] Orders Onlyon 11-26-2024 Orders Only Normal [facility] Orders Onlyon 11-25-2024 Orders Only Normal [facility] 37on 11-12-2024 37 [facility] Orders Onlyon 11-12-2024 Orders Only [facility] 37on 10-30-2024 37 Normal [facility] Orders Onlyon 10-19-2024 Orders Only [facility] Follow-Upon 10-17-2024 Follow-Up [facility] Orders Onlyon 09-27-2024 Orders Only [facility] ANESon 09-04-2024 ANES Normal [facility] ANES Normal [facility] HISTOLOGY - TISSUE EXAMon LAB AP ADDENDUM 1 09-17-24: Normal [facility] Comment on above: Order Comment: Pre-o p diagnosis:Kidney stone [N20.0] Result Comment: This case was sent to the Urolithiasis Laboratory in [place], [place] for chemical analysis (please see accompanying report). Please see results below:Urolithiasis Results:No nidus observed in the specimenThe stone is composed of: Calcium oxalate monohydrate: 90% Calcium phosphate (Apatite): 10%Addendum electronically signed by Jaxon Acosta MD on 09/18/2024 at 4:41 PM Performed By: #### L [id number] ####[facility] (BEAKER)[address] [place] [address] LAB AP CASE REPORT Normal [facility] Comment on above: Order Comment: Pre-o p diagnosis:Kidney stone [N20.0] Result Comment: Surg ical Pathology Case: [id number] Provider: Tino Langston MD Collected: 09/04/2024 1108Ordering Location: [facility] Main Operating Room Received: 09/04/2024 1305Pathologist: JERONIMO Morenopecimen: Kidney, KIDNEY STONE FOR ANALYSIS Performed By: #### L [id number] ####[facility] (BEAKER)[address] [place] [address] LAB AP CLINICAL INFORMATION [facility] Comment on above: Order Comment: Pre-o p diagnosis:Kidney stone [N20.0] Result Comment: Pre- op diagnosis:Kidney stone [N20.0] Performed By: #### L [id number] ####[facility] (BEAKER)[address] [place] [address] LAB AP GROSS DESCRIPTION A. Kidney. [facility] Comment on above: Order Comment: Pre-o p diagnosis:Kidney stone [N20.0] Result Comment: The specimen is received fresh labeled Edward Shiets and kidney stone for analysis. It consists of a 0.3 x 0.2 x 0.1 cm yellow-brown, firm, roughened stone. The specimen is for gross examination only and is to be sent to the Urolithiasis lab in [place], [place] for chemical analysis.Rhiannon Mercado, Pathologists' Revising Clerk studentTabitha Aggarwal Pathologists' Revising Clerk Student Performed By: #### L [id number] ####[facility] (BEAKER)[address] [place] [address] LAB AP MICROSCOPIC DESCRIPTION Gross examination only. [facility] Comment on above: Order Comment: Pre-o p diagnosis:Kidney stone [N20.0] Performed By: #### L [id number] ####[facility] (BEAKER)[address] [place] [address] LAB AP REPORT FINAL DIAGNOSIS NARRATIVE [facility] Comment on above: Order Comment: Pre-o p diagnosis:Kidney stone [N20.0] Result Comment: cherri Forman for analysis: - Gross examination consistent with renal calculus. - Specimen forwarded to reference laboratory for chemical analysis. Performed By: #### L [id number] ####[facility] ([facility])[address] [place] [address] HPon 09-04-2024 HP Normal [facility] OPNOTEon 09-04-2024 OPNOTE Normal [facility] POCT GLUCOSE METER UNSOLICIT ED RESULTSon 09-04-2024 Glucose [Mass/Vol] 80 mg/dL Normal 70-105 [facility] Comment on above: Order Comment: Waive d Testing in the ED is performed under the ED CLIA certificate #[id number]. Result Comment: jhag eman Performed By: #### L [id number] ####[facility] ([facility])[address] [place] [address] APTTon 08-30-2024 ACTIVATED PARTIAL THROMBOPLASTIN TIME IN PPP BY COAGULATION ASSAY 30.3 Seconds Normal 25.0-35.0 [facility] Comment on above: Result Comment: Clin ical significance of the APTT is questionable in the presence of heparin. Performed By: #### L [id number] ####[facility] ([facility])[address] [place] [address] CBC WITH AUTO DIFFERENTIALon 08-30-2024 Basophils (Bld) [#/Vol] 0.06 10*3/uL Normal 0.00-0.20 [facility] Comment on above: Performed By: #### L [id number] ####[facility] ([facility])[address] [place] [address] Basophils/100 WBC (Bld) 1.0 % Normal 0.0-1.0 [facility] Comment on above: Performed By: #### L [id number] ####[facility] ([facility])[address] [place] [address] Eosinophils (Bld) [#/Vol] 0.24 10*3/uL Normal 0.00-0.5 0 [facility] Comment on above: Performed By: #### L [id number] ####[facility] (BEAKER)[address] [place] [address] Eosinophils/100 WBC (Bld) 3.8 % Normal 0.0-6.0 [facility] Comment on above: Performed By: #### L [id number] ####[facility] (BEAKER)[address] [place] [address] Erythrocyte distribution width (RBC) [Ratio] 17.0 % High 11.5-15.0 [facility] Comment on above: Performed By: #### L [id number] ####[facility] ([facility] [place] [address] ERYTHROCYTE MEAN CORPUSCULAR HEMOGLOBIN CONCENTRATION (G/DL) BY AUTOMATED 31.2 g/dL Low 32.0-35.0 [facility] Comment on above: Performed By: #### L [id number] ####[facility] [place] [address] Hematocrit (Bld) [Volume fraction] 42.6 % Normal 39.0-50.0 [facility] Comment on above: Performed By: #### L [id number] ####[facility] (BEAKER)[address] [place] [address] Hemoglobin (Bld) [Mass/Vol] 13.3 g/dL Normal 13.0-17.0 [facility] Comment on above: Performed By: #### L [id number] ####[facility] (BEAKER)[address] [place] [address] Immature granulocytes (Bld) [#/Vol] 0.02 10*3/uL Normal 0.00-0.20 [facility] Comment on above: Performed By: #### L [id number] ####[facility] (BEAKER)[address] [place] [address] Immature granulocytes/100 WBC (Bld) 0.3 % Normal 0.0-1.0 [facility] Comment on above: Performed By: #### L [id number] ####[facility] (BEAKER)[address] [place] [address] Lymphocytes (Bld) [#/Vol] 1.29 10*3/uL Normal 1.20-4.0 0 [facility] Comment on above: Performed By: #### L [id number] ####[facility] (BEAKER)[address] [place] [address] Lymphocytes/100 WBC (Bld) 20.6 % Normal 20.0-45.0 [facility] Comment on above: Performed By: #### L [id number] ####[facility] (BEAKER)[address] [place] [address] MCH (RBC) [Entitic mass] 30.5 pg Normal 27.0-33.0 [facility] Comment on above: Performed By: #### L [id number] ####[facility] (BEAKER)[address] [place] [address] MCV (RBC) [Entitic vol] 97.7 fL Normal 82.0-98.0 [facility] Comment on above: Performed By: #### L [id number] ####[facility] (BEAKER)[address] [place] [address] Monocytes (Bld) [#/Vol] 0.53 10*3/uL Normal 0.10-1.00 [facility] Comment on above: Performed By: #### L [id number] ####[facility] (BEAKER)[address] [place] [address] Monocytes/100 WBC (Bld) 8.5 % Normal 5.0-12.0 [facility] Comment on above: Performed By: #### L [id number] ####[facility] (BEAKER)[address] [place] [address] Neutrophils (Bld) [#/Vol] 4.12 10*3/uL Normal 1.60-7.6 0 [facility] Comment on above: Performed By: #### L [id number] ####[facility] (BEAKER)[address] [place] [address] Neutrophils/100 WBC (Bld) 65.8 % Normal 40.0-72.0 [facility] Comment on above: Performed By: #### L [id number] ####[facility] ([facility])[address] [place] [address] NRBC (PER 100 WBCS) BY AUTOMATED COUNT 0.0 % Normal 0 [facility] Comment on above: Performed By: #### L [id number] ####[facility] ([facility])[address] [place] [address] PLATELETS (10*3/UL) IN BLOOD AUTOMATED COUNT 189 10*3/uL Normal 150-400 [facility] Comment on above: Performed By: #### L [id number] ####[facility] ([facility])[address] [place] [address] RBC (Bld) [#/Vol] 4.36 10*6/uL Normal 4.20-5.70 [facility] Comment on above: Performed By: #### L [id number] ####[facility] ([facility])[address] [place] [address] WBC (Bld) [#/Vol] 6.26 10*3/uL Normal 4.00-10.60 [facility] Comment on above: Performed By: #### L [id number] ####[facility] ([facility])[address] [place] [address] HPon 08-30-2024 HP Normal [facility] Labon 08-30-2024 Lab Normal [facility] PROTIME-INRon 08-30-2024 INR IN PPP BY COAGULATION ASSAY 1.15 High 0.90-1.10 [facility] Comment on above: Result Comment: ACCC [...] CHEST 1995;108:231S-246S. Performed By: #### L [id number] ####[facility] ([facility])[address] [place] [address] PROTHROMBIN TIME (PT) IN PPP BY COAGULATION ASSAY 14.7 Seconds Normal 12.3-14.8 [facility] Comment on above: Performed By: #### L [id number] ####[facility] ([facility])[address] [place] [address] Pre-Admission Testingon 08-13 Pre-Admission Testing Normal [facility] T4, FREEon 08-30-2024 THYROXINE (T4) FREE (NG/DL) IN SER/PLAS 1.24 ng/dL Normal 0.71-1.85 [facility] Comment on above: Performed By: #### L [id number] ####[facility] ([facility])[address] [place] [address] TSHon 08-30-2024 THYROTROPIN (MIU/L) IN SER/PLAS BY DETECTION LIMIT <= 0.05 MIU/L 2.01 mIU/L Normal 0.34-5.60 [facility] Comment on above: Performed By: #### L [id number] ####[facility] ([facility])[address] [place] [address] Urine Cultureon 08-29-2024 Bacteria identified Cx Nom (U) <9,000 colonies/ml mixed bacterial skin contaminants 2 Days PERFORMED BY: [facility] [place] [address] PATHOLOGIST CLINICAL INFORMATICS PHYSICIAN MARTINE BAIN M.D. Normal [facility] Comment on above: Performed By: #### C UU #### [facility] [address] [id number] [facility] 36on 08-02-2024 36 Called POA ( son ) Patrice to reschedule sx from 08/13 - no answer , lvm for him to call back in office. Normal [facility] 36on 08-01-2024 36 Pt is scheduled surgery for 08/13/24 and needs to change the date. Please advise and call patient's son with new date. Normal [facility] Follow-Upon 07-19-2024 Follow-Up [facility] CBC AND AUTO DIFFon 07-09-19 ABSOLUTE BASOPHIL 0.1 X10E9/L Normal 0.0-0.2 [facility] Comment on above: Performed By: #### P INR, 83117-7 #### [facility] ([id number]) [address] [place] [address] #### CBCA, CMP #### [facility] ([id number]) [facility], [address] [place] [address] ABSOLUTE NEUTROPHIL 5.3 X10E9/L Normal 1.5-6.6 [facility] Comment on above: Performed By: #### P INR, 41351-2 #### [facility] ([id number]) [address] [place] [address] 63566 #### CBCA, CMP #### [facility] ([id number]) [address] [facility] [facility] [place] [address] Basophils/100 WBC (Bld) 0.7 % Normal P [facility] Comment on above: Performed By: #### P INR, 60150-9 #### [facility] ([id number]) [address] [place] [address]2018 #### CBCA, CMP #### [facility] ([id number]) [address] [facility] [place] [address] Eosinophils (Bld) [#/Vol] 0.1 10*3/uL Normal 0.0-0.4 [place] Comment on above: Performed By: #### P INR, 99503-9 #### [facility] ([id number]) [address] [place] [address] 33919 #### CBCA, CMP #### [facility] ([id number]) [address] [place] [address], [facility] [address] [place] [address] Eosinophils/100 WBC (Bld) 1.8 % Normal [place] Comment on above: Performed By: #### P INR, 37096-0 #### [facility] ([id number]) [address] [place] [address] 34[address] #### CBCA, CMP #### [facility] ([id number]) [address] [facility], [address] [place] [address] Erythrocyte distribution width (RBC) [Ratio] 15.3 % High 11.5-15.0 [place] Comment on above: Performed By: #### P INR, 73363-4 #### [facility] ([id number]) [address] [place] [address] 615[address] #### CBCA, CMP #### [facility] ([id number]) [address] [facility], [address] [place] [address] Hematocrit (Bld) [Volume fraction] 23.8 % Low 39-49 [place] Comment on above: Performed By: #### P INR, 02542-9 #### [facility] ([id number]) [address] [place] [address] 45028 #### CBCA, CMP #### [facility] ([id number]) [address], [address] [place] [address] Hemoglobin (Bld) [Mass/Vol] 8.1 g/dL Low 13.0-17.0 [place] Comment on above: Performed By: #### P INR, 93076-0 #### [facility] ([id number]) [address] [place] [address] 16779 #### CBCA, CMP #### [facility] ([id number]) [address], [address] [place] [address] Lymphocytes (Bld) [#/Vol] 1.2 10*3/uL Normal 1.0-3.5 [place] Comment on above: Performed By: #### P INR, 62358-4 #### [facility] ([id number]) [address] [place] [address] 80699 #### CBCA, CMP #### [facility] ([id number]) [address] [facility] [place] [address] Lymphocytes/100 WBC (Bld) 16.3 % Normal [place] Comment on above: Performed By: #### P INR, 28760-3 #### [facility] ([id number]) [address] [place] [address] 47253 #### CBCA, CMP #### [facility] ([id number]) [address], [address] [place] [address] MCH (RBC) [Entitic mass] 31.8 pg Normal 27-34 [place] Comment on above: Performed By: #### P INR, 82398-3 #### [facility] ([id number]) [address] [place] [address] 39485 #### CBCA, CMP #### [facility] ([id number]) [address] [facility] [place] [address] MCHC (RBC) [Mass/Vol] 34.1 g/dL Normal 32-36 [facility] Comment on above: Performed By: #### P INR, 52025-4 #### [facility] ([id number]) [address] [place] [address] 6[address]11 #### CBCA, CMP #### [facility] ([id number]) [address], [address] [place] [address] MCV (RBC) [Entitic vol] 93 fL Normal 80-100 P [facility] Comment on above: Performed By: #### P INR, 94723-4 #### [facility] ([id number]) [address] [place] [address] 58914 #### CBCA, CMP #### [facility] ([id number]) [address], [address] [place] [address] Monocytes (Bld) [#/Vol] 0.5 10*3/uL Normal 0-0.9 [place] Comment on above: Performed By: #### P INR, 50627-1 #### [facility] ([id number]) [address] [place] [address] 69390 #### CBCA, CMP #### [facility] ([id number]) [address], [address] [place] [address] Monocytes/100 WBC (Bld) 7.0 % Normal P [facility] Comment on above: Performed By: #### P INR, 91205-3 #### [facility] ([id number]) [address] [place] [address] 34250 #### CBCA, CMP #### [facility] ([id number]) [address], [address] [place] [address] Neutrophils/100 WBC (Bld) 74.2 % Normal [place] Comment on above: Performed By: #### P INR, 80218-6 #### [facility] ([id number]) [address] [place] [address] 46633 #### CBCA, CMP #### [facility] ([id number]) [address] [place] [address] Platelet mean volume (Bld) [Entitic vol] 8.7 fL Normal 7-12 [place] Comment on above: Performed By: #### P INR, 98403-5 #### [facility] ([id number]) [address] [place] [address] 73416 #### CBCA, CMP #### [facility] ([id number]) [address], [address] [place] [address] Platelets (Bld) [#/Vol] 284 10*3/uL Normal 150-450 [place] Comment on above: Performed By: #### P INR, 38074-1 #### [facility] ([id number]) [address] [place] [address] 66634 #### CBCA, CMP #### [facility] ([id number]) [address] [place] [address] RBC COUNT 2.55 X10E12/L Low 4.10-5.70 [place] Comment on above: Performed By: #### P INR, 74621-0 #### [facility] ([id number]) [address] [place] [address] 34949 #### CBCA, CMP #### [facility] ([id number]) [address] [place] [address] WBC (Bld) [#/Vol] 7.2 10*3/uL Normal 4.0-11.0 [facility] Comment on above: Performed By: #### P INR, 85827-0 #### [facility] ([id number]) [address] [place] [address] 30297 #### CBCA, CMP #### [facility] ([id number]) [address], [address] [place] [address] COMPREHENSIVE METABOLIC PANE Larry 07-09-2024 Albumin [Mass/Vol] 2.6 g/dL Low 3.2-5.3 [facility] Comment on above: Performed By: #### P INR, 69309-5 #### [facility] ([id number]) [address] [place] [address] 54944 #### CBCA, CMP #### [facility] ([id number]) [address] [place] [address] ALP [Catalytic activity/Vol] 73 U/L Normal 39-130 [place] Comment on above: Performed By: #### P INR, 43636-3 #### [facility] ([id number]) [address] [place] [address] 14905 #### CBCA, CMP #### [facility] ([id number]) [address], [address] [place] [address] ALT [Catalytic activity/Vol] 37 U/L Normal 0-40 [place] Comment on above: Performed By: #### P INR, 61402-1 #### [facility] ([id number]) [address] [place] [address] 30322 #### CBCA, CMP #### [facility] ([id number]) [address] [place] [address] Anion gap [Moles/Vol] 6 mmol/L Normal 5-15 [facility] Comment on above: Performed By: #### P INR, 97629-7 #### [facility] ([id number]) [address] [place] [address] #### CBCA, CMP #### [facility] ([id number]) [address] [facility] [facility] [place] [address] AST [Catalytic activity/Vol] 58 U/L High 0-41 [place] Comment on above: Performed By: #### P INR, 18572-8 #### [facility] ([id number]) [address] [place] [address] 58665 #### CBCA, CMP #### [facility] ([id number]) [address] [facility], [address] [place] [address] Bilirubin [Mass/Vol] 1.0 mg/dL Normal 0.3-1.2 [facility] Comment on above: Performed By: #### P INR, 40841-8 #### [facility] ([id number]) [address] [place] [address] 61852 #### CBCA, CMP #### [facility] ([id number]) [address] [facility], [address] [place] [address] Calcium [Mass/Vol] 8.5 mg/dL Normal 8.5-10.5 [facility] Comment on above: Performed By: #### P INR, 06612-9 #### [facility] ([id number]) [address] [place] [address] 39426 #### CBCA, CMP #### [facility] ([id number]) [address] [facility] [place] [address] Chloride [Moles/Vol] 106 mmol/L Normal 98-109 [facility] Comment on above: Performed By: #### P INR, 16974-7 #### [facility] ([id number]) [address] [place] [id number] #### CBCA, CMP #### [facility] ([id number]) [address], [address] [place] [address] CO2 [Moles/Vol] 26 mmol/L Normal 22-32 [place] Comment on above: Performed By: #### P INR, 44888-5 #### [facility] ([id number]) [address] [place] [id number] #### CBCA, CMP #### [facility] ([id number]) [address], [address] [place] [address] Creatinine [Mass/Vol] 1.72 mg/dL High 0.70-1.20 [facility] Comment on above: Result Comment: METH OD TRACEABLE TO IDMS STANDARD Performed By: #### P INR, 83077-7 #### [facility] ([id number]) [address] [place] [address] 44146 #### CBCA, CMP #### [facility] ([id number]) [address] [facility] [place] [address] GFR/1.73 sq M.predicted among non-blacks MDRD (S/P/Bld) [Vol rate/Area] 40 mL/min/{1.73_m2} Low >59 Pr [facility] Comment on above: Result Comment: Reported eGFR is based on the CKD-EPI 2020 equation that does not use a race coefficient. Performed By: #### P INR, 34410-7 #### [facility] ([id number]) [address] [place] [address] 38366 #### CBCA, CMP #### [facility] ([id number]) [address], [address] [place] [address] Glucose [Mass/Vol] 97 mg/dL Normal 65-99 [facility] Comment on above: Performed By: #### P INR, 66839-1 #### [facility] ([id number]) [address] [place] [address] [place] [address] #### CBCA, CMP #### [facility] ([id number]) [address] [facility], [address] [place] [address] Potassium [Moles/Vol] 4.0 mmol/L Normal 3.5-5.0 [facility] Comment on above: Performed By: #### P INR, 71140-1 #### [facility] ([id number]) [address] [place] [address] 67878 #### CBCA, CMP #### [facility] ([id number]) [facility] [facility], [address] [place] [address] Protein [Mass/Vol] 6.4 g/dL Normal 6.0-8.0 [facility] Comment on above: Performed By: #### P INR, 48011-9 #### [facility] ([id number]) [address] [place] [address] 63543 #### CBCA, CMP #### [facility] ([id number]) [address] [facility], [address] [place] [address] Sodium [Moles/Vol] 138 mmol/L Normal 134-146 [facility] Comment on above: Performed By: #### P INR, 90840-3 #### [facility] ([id number]) [address] [place] [address] 94495 #### CBCA, CMP #### [facility] ([id number]) [address] [facility] [place] [address] Urea nitrogen [Mass/Vol] 30 mg/dL High 5-27 [place] Comment on above: Performed By: #### P INR, 67162-6 #### [facility] ([id number]) [address] [place] [address] 01217 #### CBCA, CMP #### [facility] ([id number]) [address] [facility] [address] [place] [address] CT ABDOMEN AND PELVIS W CONT on [...] Cobb MD on 07/09/2024 6:35 PM Normal [place] LIPASEon 07-09-2024 Lipase [Catalytic activity/Vol] 32 U/L Normal 17-40 [place] Comment on above: Performed By: #### P INR, 76264-8 #### [facility] ([id number]) [address] [place] [address] 85874 #### CBCA, CMP #### [facility] ([id number]) [address], [address] [place] [address] Lactate (P rosanne) [Moles/Vol]o n 07-09-2024 LACTATE W/REFLEX 1.2 mmol/L Normal 0.4-2.0 [facility] Comment on above: Result Comment: Result did not trigger repeat Lactate, re-order if needed. Performed By: #### P INR, 48447-5 #### [facility] ([id number]) [address] [place] [address] 23265 #### CBCA, CMP #### [facility] ([id number]) [address] [facility] [address] [place] [address] MAGNESIUMon 07-09-2024 Magnesium [Mass/Vol] 2.2 mg/dL Normal 1.8-2.6 [facility] Comment on above: Performed By: #### P INR, 47821-9 #### [facility] ([id number]) [address] [place] [address] 18478 #### CBCA, CMP #### [facility] ([id number]) [address] [facility] [place] [address] URINE CULTUREon 07-09-2024 Bacteria identified Cx Nom (U) CULTURE RESULTS NO GROWTH AT <1000 CFU/mL Normal [place] Comment on above: Performed By: #### P INR, 76138-3 #### [facility] ([id number]) [address] [place] [address] 66882 #### CBCA, CMP #### [facility] ([id number]) [address] [place] [address] URN MACROSCOPIC NURon 2024 BILIRUBIN DIANE Small Abnormal NEG [place] Comment on above: Performed By: #### P INR, 08032-7 #### [facility] ([id number]) [address] [place] [address] 22552 #### CBCA, CMP #### [facility] ([id number]) [address], [address] [place] [address] BLOOD/HGB DIANE Large Abnormal NEG [place] Comment on above: Performed By: #### P INR, 39807-6 #### [facility] ([id number]) [address] [place] [address] 15598 #### CBCA, CMP #### [facility] ([id number]) [address] [place] [address] GLUCOSE DIANE >=1000 Abnormal NEG [place] Comment on above: Performed By: #### P INR, 07342-3 #### [facility] ([id number]) [address] [place] [address] 74210 #### CBCA, CMP #### [facility] ([id number]) [address] [place] [address] KETONES DIANE Negative Normal NEG [place] Comment on above: Performed By: #### P INR, 90941-8 #### [facility] ([id number]) [address] [place] [address] 21477 #### CBCA, CMP #### [facility] ([id number]) [address] [place] [address] LEUKOCYTE ESTERASE DIANE Large Abnormal NEG [facility] Comment on above: Performed By: #### P INR, 14288-5 #### [facility] ([id number]) [address] [place] [address] 80861 #### CBCA, CMP #### [facility] ([id number]) [address], [address] [place] [address] NITRITE DIANE Negative Normal NEG [place] Comment on above: Performed By: #### P INR, 15457-4 #### [facility] ([id number]) [address] [place] [address] 55540 #### CBCA, CMP #### [facility] ([id number]) [address] [facility] [place] [address] PH DIANE 7.0 Normal 5.0-8.5 [place] Comment on above: Performed By: #### P INR, 09101-7 #### [facility] ([id number]) [address] [place] [address] 71770 #### CBCA, CMP #### [facility] ([id number]) [address] [facility] [place] [address] PROTEIN DIANE >=300 Abnormal NEG [place] Comment on above: Performed By: #### P INR, 25406-0 #### [facility] ([id number]) [address] [place] [address] 79109 #### CBCA, CMP #### [facility] ([id number]) [address], [address] [place] [address] SPECIFIC GRAVITY DIANE 1.015 Normal 1.003-1 .03 5 [place] Comment on above: Performed By: #### P INR, 90957-7 #### [facility] ([id number]) [address] [place] [address] 79539 #### CBCA, CMP #### [facility] ([id number]) [address], [address] [place] [address] UROBILINOGEN DIANE >=8.0 Normal <1.1 [facility] Comment on above: Performed By: #### P INR, 80991-9 #### [facility] ([id number]) [address] [place] [address] 57342 #### CBCA, CMP #### [facility] ([id number]) [address] [facility] [place] [address] CBC AND AUTO DIFFon 07-05-19 25 ABSOLUTE BASOPHIL 0.1 X10E9/L Normal 0.0-0.2 [facility] Comment on above: Performed By: #### P INR, 82750-5 #### [facility] ([id number]) [address] [place] [address] 30261 #### CBCA, CMP #### [facility] ([id number]) [address] [facility] [place] [address] ABSOLUTE NEUTROPHIL 8.8 X10E9/L High 1.5-6.6 [facility] Comment on above: Performed By: #### P INR, 34973-5 #### [facility] ([id number]) [address] [place] [address] 14042 #### CBCA, CMP #### [facility] ([id number]) [address] [facility] [place] [address] Basophils/100 WBC (Bld) 0.5 % Normal P [facility] Comment on above: Performed By: #### P INR, 96957-5 #### [facility] ([id number]) [address] [place] [address] 91060 #### CBCA, CMP #### [facility] ([id number]) [address] [facility] [place] [address] Eosinophils (Bld) [#/Vol] 0.1 10*3/uL Normal 0.0-0.4 [place] Comment on above: Performed By: #### P INR, 54642-8 #### [facility] ([id number]) [address] [place] [address] 11373 #### CBCA, CMP #### [facility] ([id number]) [address], [address] [place] [address] Eosinophils/100 WBC (Bld) 1.1 % Normal [place] Comment on above: Performed By: #### P INR, 35774-3 #### [facility] ([id number]) [address] [place] [address] 72353 #### CBCA, CMP #### [facility] ([id number]) [address], [address] [place] [address] Erythrocyte distribution width (RBC) [Ratio] 15.2 % High 11.5-15.0 [place] Comment on above: Performed By: #### P INR, 56292-1 #### [facility] ([id number]) [address] [place] [address] 90142 #### CBCA, CMP #### [facility] ([id number]) [address], [address] [place] [address] Hematocrit (Bld) [Volume fraction] 32.7 % Low 39-49 [place] Comment on above: Performed By: #### P INR, 24651-7 #### [facility] ([id number]) [address] [place] [address] 02214 #### CBCA, CMP #### [facility] ([id number]) [address], [address] [place] [address] Hemoglobin (Bld) [Mass/Vol] 10.9 g/dL Low 13.0-17.0 [place] Comment on above: Performed By: #### P INR, 62978-9 #### [facility] ([id number]) [address] [place] [address] 68456 #### CBCA, CMP #### [facility] ([id number]) [address] [place] [address] Lymphocytes (Bld) [#/Vol] 1.0 10*3/uL Normal 1.0-3.5 [place] Comment on above: Performed By: #### P INR, 40550-1 #### [facility] ([id number]) [address] [place] [address] 67497 #### CBCA, CMP #### [facility] ([id number]) [address], [address] [place] [address] Lymphocytes/100 WBC (Bld) 9.0 % Normal [place] Comment on above: Performed By: #### P INR, 43522-0 #### [facility] ([id number]) [address] [place] [address] 16353 #### CBCA, CMP #### [facility] ([id number]) [address], [address] [place] [address] MCH (RBC) [Entitic mass] 31.0 pg Normal 27-34 [place] Comment on above: Performed By: #### P INR, 49176-8 #### [facility] ([id number]) [address] [place] [address] 75120 #### CBCA, CMP #### [facility] ([id number]) [address], [address] [place] [address] MCHC (RBC) [Mass/Vol] 33.2 g/dL Normal 32-36 [facility] Comment on above: Performed By: #### P INR, 11788-3 #### [facility] ([id number]) [address] [place] [address] 14617 #### CBCA, CMP #### [facility] ([id number]) [address] [place] [address] MCV (RBC) [Entitic vol] 93 fL Normal 80-100 P [facility] Comment on above: Performed By: #### P INR, 96629-8 #### [facility] ([id number]) [address] [place] [address] 05572 #### CBCA, CMP #### [facility] ([id number]) [address] [facility] [place] [address] Monocytes (Bld) [#/Vol] 1.0 10*3/uL High 0-0.9 [place] Comment on above: Performed By: #### P INR, 25900-5 #### [facility] ([id number]) [address] [place] [address] 84284 #### CBCA, CMP #### [facility] ([id number]) [address] [facility] [place] [address] Monocytes/100 WBC (Bld) 8.9 % Normal P [facility] Comment on above: Performed By: #### P INR, 54252-5 #### [facility] ([id number]) [address] [place] [address] 41537 #### CBCA, CMP #### [facility] ([id number]) [address] [facility] [place] [address] Neutrophils/100 WBC (Bld) 80.5 % Normal [place] Comment on above: Performed By: #### P INR, 53023-8 #### [facility] ([id number]) [address] [place] [address] 45496 #### CBCA, CMP #### [facility] ([id number]) [address] [place] [address] Platelet mean volume (Bld) [Entitic vol] 8.6 fL Normal 7-12 [place] Comment on above: Performed By: #### P INR, 56760-1 #### [facility] ([id number]) [address] [place] [address] 58569 #### CBCA, CMP #### [facility] ([id number]) [address] [place] [address] Platelets (Bld) [#/Vol] 275 10*3/uL Normal 150-450 [place] Comment on above: Performed By: #### P INR, 19145-4 #### [facility] ([id number]) [address] [place] [address] 58676 #### CBCA, CMP #### [facility] ([id number]) [address] [place] [address] RBC COUNT 3.50 X10E12/L Low 4.10-5.70 [place] Comment on above: Performed By: #### P INR, 12350-5 #### [facility] ([id number]) [address] [place] [address] 84188 #### CBCA, CMP #### [facility] ([id number]) [address] [place] [address] WBC (Bld) [#/Vol] 10.9 10*3/uL Normal 4.0-11.0 [facility] Comment on above: Performed By: #### P INR, 23437-3 #### [facility] ([id number]) [address] [place] [address] 34746 #### CBCA, CMP #### [facility] ([id number]) [address] [facility] [facility] [place] [address] COMPREHENSIVE METABOLIC PANE Larry 07-05-2024 Albumin [Mass/Vol] 2.6 g/dL Low 3.2-5.3 [facility] Comment on above: Performed By: #### P INR, 00207-7 #### [facility] ([id number]) [address] [place] [address] 55224 #### CBCA, CMP #### [facility] ([id number]) [address] [facility] [facility] [place] [address] ALP [Catalytic activity/Vol] 71 U/L Normal 39-130 [place] Comment on above: Performed By: #### P INR, 93955-8 #### [facility] ([id number]) [address] [place] [address] 90248 #### CBCA, CMP #### [facility] ([id number]) [address] [facility] [place] [address] ALT [Catalytic activity/Vol] 14 U/L Normal 0-40 [place] Comment on above: Performed By: #### P INR, 36131-5 #### [facility] ([id number]) [address] [place] [address] 15090 #### CBCA, CMP #### [facility] ([id number]) [address] [place] [address] Anion gap [Moles/Vol] 5 mmol/L Normal 5-15 [facility] Comment on above: Performed By: #### P INR, 43137-7 #### [facility] ([id number]) [address] [place] [address] 45323 #### CBCA, CMP #### [facility] ([id number]) [address] [facility] [place] [address] AST [Catalytic activity/Vol] 29 U/L Normal 0-41 [place] Comment on above: Performed By: #### P INR, 01729-9 #### [facility] ([id number]) [address] [place] [address] 05441 #### CBCA, CMP #### [facility] ([id number]) [address] [place] [address] Bilirubin [Mass/Vol] 1.3 mg/dL High 0.3-1.2 [facility] Comment on above: Performed By: #### P INR, 04381-5 #### [facility] ([id number]) [address] [place] [address] 70381 #### CBCA, CMP #### [facility] ([id number]) [address] [place] [address] Calcium [Mass/Vol] 8.6 mg/dL Normal 8.5-10.5 [facility] Comment on above: Performed By: #### P INR, 99832-3 #### [facility] ([id number]) [address] [place] [address] 05730 #### CBCA, CMP #### [facility] ([id number]) [address] [place] [address] Chloride [Moles/Vol] 105 mmol/L Normal 98-109 [facility] Comment on above: Performed By: #### P INR, 05168-0 #### [facility] ([id number]) [address] [place] [address] 24376 #### CBCA, CMP #### [facility] ([id number]) [address] [place] [address] CO2 [Moles/Vol] 28 mmol/L Normal 22-32 [place] Comment on above: Performed By: #### P INR, 45591-0 #### [facility] ([id number]) [address] [place] [address] 84076 #### CBCA, CMP #### [facility] ([id number]) [address] [place] [address] Creatinine [Mass/Vol] 1.24 mg/dL High 0.70-1.20 [facility] Comment on above: Result Comment: METH OD TRACEABLE TO IDMS STANDARD Performed By: #### P INR, 63809-4 #### [facility] ([id number]) [address] [place] [address] 99631 #### CBCA, CMP #### [facility] ([id number]) [address] [place] [address] GFR/1.73 sq M.predicted among non-blacks MDRD (S/P/Bld) [Vol rate/Area] 60 mL/min/{1.73_m2} Normal >59 Pr [facility] Comment on above: Result Comment: Reported eGFR is based on the CKD-EPI 2020 equation that does not use a race coefficient. Performed By: #### P INR, 05139-6 #### [facility] ([id number]) [address] [place] [address] 12632 #### CBCA, CMP #### [facility] ([id number]) [address] [place] [address] Glucose [Mass/Vol] 115 mg/dL High 65-99 [facility] Comment on above: Performed By: #### P INR, 07621-0 #### [facility] ([id number]) [address] [place] [address] 33785 #### CBCA, CMP #### [facility] ([id number]) [address] [place] [address] Potassium [Moles/Vol] 4.0 mmol/L Normal 3.5-5.0 [facility] Comment on above: Performed By: #### P INR, 99060-6 #### [facility] ([id number]) [address] [place] [address] 07460 #### CBCA, CMP #### [facility] ([id number]) [address] [place] [address] Protein [Mass/Vol] 6.5 g/dL Normal 6.0-8.0 [facility] Comment on above: Performed By: #### P INR, 54795-3 #### [facility] ([id number]) [address] [place] [address] 86069 #### CBCA, CMP #### [facility] ([id number]) [address] [place] [address] Sodium [Moles/Vol] 138 mmol/L Normal 134-146 [facility] Comment on above: Performed By: #### P INR, 52521-5 #### [facility] ([id number]) [address] [place] [address] 42840 #### CBCA, CMP #### [facility] ([id number]) [address] [place] [address] Urea nitrogen [Mass/Vol] 19 mg/dL Normal 5-27 [place] Comment on above: Performed By: #### P INR, 58301-2 #### [facility] ([id number]) [address] [place] [address] 08245 #### CBCA, CMP #### [facility] ([id number]) [address] [place] [address] CT ABDOMEN AND PELVIS W CONT on [...] THE CLINICAL SERVICE ON 07/05/2024 6:59 PM [email or web address] Finalized by Ashley Joyce on 07/05/2024 7:01 PM Normal [place] Lactate (P rosanne) [Moles/Vol]o n 07-05-2024 LACTATE W/REFLEX 1.5 mmol/L Normal 0.4-2.0 [facility] Comment on above: Result Comment: Result did not trigger repeat Lactate, re-order if needed. Performed By: #### P INR, 90931-4 #### [facility] ([id number]) [address] [place] [address] 89519 #### CBCA, CMP #### [facility] ([id number]) [address] [facility] [place] [address] PROTIME AND INRon 07-05-2024 INR Coag (PPP) [Relative time] 1.9 {INR} High 0.8-1.1 [place] Comment on above: Performed By: #### P INR, 06133-1 #### [facility] ([id number]) [address] [place] [address], [place] [address] #### CBCA, CMP #### [facility] ([id number]) [address], [address] [place] [address] PT Coag (PPP) [Time] 21.4 s High 9.8-13.2 [facility] Comment on above: Result Comment: NEW REFERENCE RANGE Performed By: #### P INR, 54022-0 #### [facility] ([id number]) [address] [place] [address] #### CBCA, CMP #### [facility] ([id number]) [address], [address] [place] [address] UA (MICROSCOPIC)on 5 R.B.CELLS >100 High 0-5 [place] Comment on above: Performed By: #### P INR, 07644-5 #### [facility] ([id number]) [address] [place] [address] #### CBCA, CMP #### [facility] ([id number]) [address], [address] [place] [address] SQUAMOUS EPITHELIUM 2 /hpf Normal 0-5 [facility] Comment on above: Performed By: #### P INR, 54469-4 #### [facility] ([id number]) [address] [place] [address] #### CBCA, CMP #### [facility] ([id number]) [address], [address] [place] [address] Urinalysis dipstick W Reflex Microscopic panel (U) Results maybe affected due to High RBC count, interpretwith caution. Normal [place] Comment on above: Performed By: #### P INR, 14101-8 #### [facility] ([id number]) [address] [place] [address] #### CBCA, CMP #### [facility] ([id number]) [address], [address] [place] [address] W.B.CELLS 3 /hpf Normal 0-5 [place] Comment on above: Performed By: #### P INR, 93625-5 #### [facility] ([id number]) [address] [facility], [place] [address] #### CBCA, CMP #### [facility] ([id number]) [address], [address] [place] [address] BASIC METABOLIC PANLon 07-04 Anion gap [Moles/Vol] 6 mmol/L Normal 5-15 [facility] Comment on above: Performed By: #### C BCA, 5643-2, 1797-8, CMP, 3040-3, 37215-7, PINR, 22479-3 #### [facility] ([id number]) [address], [address] [place] [address] Calcium [Mass/Vol] 8.4 mg/dL Low 8.5-10.5 [facility] Comment on above: Performed By: #### C BCA, 5643-2, 1797-8, CMP, 3040-3, 30649-7, PINR, 39105-9 #### [facility] ([id number]) [address], [address] [place] [address] Chloride [Moles/Vol] 107 mmol/L Normal 98-109 [facility] Comment on above: Performed By: #### C BCA, 5643-2, 1797-8, CMP, 3040-3, 93273-8, PINR, 84044-6 #### [facility] ([id number]) [address], [address] [place] [address] CO2 [Moles/Vol] 29 mmol/L Normal 22-32 [facility] Comment on above: Performed By: #### C BCA, 5643-2, 8-8, CMP, 3040-3, 71380-2, PINR, 83259-6 #### [facility] ([id number]) [address], [address] [place] [address] Creatinine [Mass/Vol] 1.06 mg/dL Normal 0.60-1.30 [facility] Comment on above: Result Comment: METH OD TRACEABLE TO IDMS STANDARD Performed By: #### C BCA, 5643-2, 1797-8, CMP, 3040-3, 29087-0, PINR, 94714-0 #### [facility] ([id number]) [address], [address] [place] [address] GFR/1.73 sq M.predicted among non-blacks MDRD (S/P/Bld) [Vol rate/Area] 72 mL/min/{1.73_m2} Normal >59 [facility] Comment on above: Result Comment: Reported eGFR is based on the CKD-EPI 2020 equation that does not use a race coefficient. Performed By: #### C BCA, 5643-2, 1797-8, CMP, 3040-3, 06819-0, PINR, [id number] #### [facility] ([id number]) [address], [address] [place] [address] Glucose [Mass/Vol] 93 mg/dL Normal 65-99 [facility] Comment on above: Performed By: #### C BCA, 5643-2, 1797-8, CMP, 3040-3, 68718-8, PINR, [id number] #### [facility] ([id number]) [address], [address] [place] [address] Potassium [Moles/Vol] 4.0 mmol/L Normal 3.5-5.0 [facility] Comment on above: Performed By: #### C BCA, 5643-2, 1797-8, CMP, 3040-3, 93037-5, PINR, 62926-6 #### [facility] ([id number]) [address], [address] [place] [address] Sodium [Moles/Vol] 142 mmol/L Normal 134-146 [facility] Comment on above: Performed By: #### C BCA, 5643-2, 1798-8, CMP, 3040-3, 52921-4, PINR, 85980-2 #### [facility] ([id number]) [address], [address] [place] [address] Urea nitrogen [Mass/Vol] 17 mg/dL Normal 5-27 [facility] Comment on above: Performed By: #### C BCA, 5643-2, 1798-8, CMP, 3040-3, 78784-0, PINR, 37158-3 #### [facility] ([id number]) [address], [address] [place] [address] Basic Metabolic Panelon - Anion gap [Moles/Vol] 6 mmol/L 5 - 15 mmol/L [facility] Calcium [Mass/Vol] 8.4 mg/dL Low 8.5 - 10. 5 mg/dL [facility] Chloride [Moles/Vol] 107 mmol/L 98 - 10 9 mmol/L [facility] CO2 [Moles/Vol] 29 mmol/L 22 - 32 mmol/L [facility] Creatinine [Mass/Vol] 1.06 mg/dL 0.60 - 1.30 mg/dL [facility] Comment on above: METHOD TRACEABLE TO IDMS STANDARD eGFR (CKD-EPI)non-race dependent 72 - PINF [facility] Comment on above: Reported eGFR is based on the CKD-EPI 2020 equation that does not use a race coefficient. Glucose [Mass/Vol] 93 mg/dL 65 - 99 mg/dL [facility] Interpretation and review of laboratory results Abnormal [facility] Potassium [Moles/Vol] 4 mmol/L 3.5 - 5.0 mmol/L [facility] Sodium [Moles/Vol] 142 mmol/L 134 - 146 mmol/L [facility] Urea nitrogen [Mass/Vol] 17 mg/dL 5 - 27 mg/dL [facility] CBC AND AUTO DIFFon 07-04- 25 ABSOLUTE BASOPHIL 0.1 X10E9/L Normal 0.0-0.2 [facility] Comment on above: Performed By: #### C BCA, 5643-2, 1797-8, CMP, 3040-3, 78397-2, PINR, 75704-2 #### [facility] ([id number]) [address], [address] [place] [address] ABSOLUTE NEUTROPHIL 4.7 X10E9/L Normal 1.5-6.6 [facility] Comment on above: Performed By: #### C BCA, 5643-2, 1797-8, CMP, 3040-3, 55238-2, PINR, 09109-9 #### [facility] ([id number]) [address], [address] [place] [address] Basophils/100 WBC (Bld) 0.8 % Normal [facility] Comment on above: Performed By: #### C BCA, 5643-2, 1797-8, CMP, 3040-3, 53828-1, PINR, 47715-6 #### [facility] ([id number]) [address], [address] [place] [address] Eosinophils (Bld) [#/Vol] 0.1 10*3/uL Normal 0.0-0.4 [facility] Comment on above: Performed By: #### C BCA, 5643-2, 1797-8, CMP, 3040-3, 28875-5, PINR, 93853-6 #### [facility] ([id number]) [address], [address] [place] [address] Eosinophils/100 WBC (Bld) 2.0 % Normal [facility] Comment on above: Performed By: #### C BCA, 5643-2, 1797-8, CMP, 3040-3, 61419-5, PINR, 41897-1 #### [facility] ([id number]) [address], [address] [place] [address] Erythrocyte distribution width (RBC) [Ratio] 15.0 % Normal 11.5-15.0 [facility] Comment on above: Performed By: #### C BCA, 5643-2, 1797-8, CMP, 3040-3, 92017-5, PINR, 34552-6 #### [facility] ([id number]) [address], [address] [place] [address] Hematocrit (Bld) [Volume fraction] 30.5 % Low 39-49 [facility] Comment on above: Performed By: #### C BCA, 5643-2, 1797-12, CMP, 3040-3, 24359-7, PINR, 20649-1 #### [facility] ([id number]) [address] [address] [place] [address] Hemoglobin (Bld) [Mass/Vol] 10.1 g/dL Low 13.0-17.0 [facility] Comment on above: Performed By: #### C BCA, 5643-2, 1797-12, CMP, 3040-3, 44435-3, PINR, 94672-2 #### [facility] ([id number]) [address] [address] [place] [address] Lymphocytes (Bld) [#/Vol] 0.9 10*3/uL Low 1.0-3.5 [facility] Comment on above: Performed By: #### C BCA, 5643-2, 8, CMP, 3040-3, 22671-7, PINR, 54955-8 #### [facility] ([id number]) [address] [address] [place] [address] Lymphocytes/100 WBC (Bld) 14.6 % Normal [facility] Comment on above: Performed By: #### C BCA, 5643-2, 1798-8, CMP, 3040-3, 63285-9, PINR, 36711-1 #### [facility] ([id number]) [address], [address] [place] [address] MCH (RBC) [Entitic mass] 30.8 pg Normal 27-34 [facility] Comment on above: Performed By: #### C BCA, 5643-2, 8, CMP, 3040-3, 75482-5, PINR, 50229-7 #### [facility] ([id number]) [address], [facility] [address] [place] [address] MCHC (RBC) [Mass/Vol] 33.0 g/dL Normal 32-36 [facility] Comment on above: Performed By: #### C BCA, 5643-2, 1797-12, CMP, 3040-3, 44129-3, PINR, 08411-8 #### [facility] ([id number]) [address], [address] [place] [address] MCV (RBC) [Entitic vol] 94 fL Normal 80-100 P [facility] Comment on above: Performed By: #### C BCA, 5643-2, 1797-12, CMP, 3040-3, 48464-0, PINR, 30298-9 #### [facility] ([id number]) [address], [address] [place] [address] Monocytes (Bld) [#/Vol] 0.6 10*3/uL Normal 0-0.9 [facility] Comment on above: Performed By: #### C BCA, 5643-2, 8, CMP, 3040-3, 16554-8, PINR, 01349-9 #### [facility] ([id number]) [address] [address] [place] [address] Monocytes/100 WBC (Bld) 9.1 % Normal P [facility] Comment on above: Performed By: #### Kacey BCA, 5643-2, 8-8, CMP, 3040-3, 95586-8, PINR, 43340-2 #### [facility] ([id number]) [address], [address] [place] [address] Neutrophils/100 WBC (Bld) 73.5 % Normal [facility] Comment on above: Performed By: #### C BCA, 5643-2, 8-8, CMP, 3040-3, 80279-6, PINR, 04999-7 #### [facility] ([id number]) [address], [facility] [address] [place] [address] Platelet mean volume (Bld) [Entitic vol] 8.3 fL Normal 7-12 [facility] Comment on above: Performed By: #### C BCA, 5643-2, 1797-8, CMP, 3040-3, 95670-4, PINR, 69036-7 #### [facility] ([id number]) [address] [address] [place] [address] Platelets (Bld) [#/Vol] 228 10*3/uL Normal 150-450 [facility] Comment on above: Performed By: #### C BCA, 5643-2, 1797-8, CMP, 3040-3, 02659-3, PINR, 54956-9 #### [facility] ([id number]) [address], [address] [place] [address] RBC COUNT 3.26 X10E12/L Low 4.10-5.70 [facility] Comment on above: Performed By: #### C BCA, 5643-2, 1797-8, CMP, 3040-3, 34242-8, PINR, 62198-1 #### [facility] ([id number]) [address], [address] [place] [address] WBC (Bld) [#/Vol] 6.4 10*3/uL Normal 4.0-11.0 [facility] Comment on above: Performed By: #### C BCA, 5643-2, 1798-8, CMP, 3040-3, 38115-2, PINR, 52896-7 #### [facility] ([id number]) [address] [place] [address] CBC auto differentialon 06-16 Basophils (Bld) [#/Vol] 0.1 10*3/uL [facility] Basophils/100 WBC (Bld) 0.8 % P [facility] Eosinophils (Bld) [#/Vol] 0.1 10*3/uL [facility] Eosinophils/100 WBC (Bld) 2 % [facility] Erythrocyte distribution width (RBC) [Ratio] 15 % 11.5 - 15.0 % [facility] Hematocrit (Bld) [Volume fraction] 30.5 % Low 39 - 49 % [facility] Hemoglobin (Bld) [Mass/Vol] 10.1 g/dL Low 13.0 - 17.0 g/dL [facility] Interpretation and review of laboratory results Abnormal [facility] Lymphocytes (Bld) [#/Vol] 0.9 10*3/uL Low [facility] Lymphocytes/100 WBC (Bld) 14.6 % [facility] MCH (RBC) [Entitic mass] 30.8 pg 27 - 34 pg [facility] MCHC (RBC) [Mass/Vol] 33 g/dL 32 - 3 6 g/dL [facility] MCV (RBC) [Entitic vol] 94 fL 80 - 100 fL [facility] Monocytes (Bld) [#/Vol] 0.6 10*3/uL [facility] Monocytes/100 WBC (Bld) 9.1 % P [facility] Neutrophils (Bld) [#/Vol] 4.7 10*3/uL [facility] Neutrophils/100 WBC (Bld) 73.5 % [facility] Platelet mean volume (Bld) [Entitic vol] 8.3 fL 7 - 12 fL [facility] Platelets (Bld) [#/Vol] 228 10*3/uL [facility] RBC (Bld) [#/Vol] 3.26 10*6/uL Low [facility] WBC corrected for nucl RBC Auto (Bld) [#/Vol] 6.4 [facility] Glucose Glucometer (BldC) [M ass/Vol]on 07-04-2024 Glucose [Mass/Vol] 100 mg/dL High 65 - 99 mg/dL [facility] Interpretation and review of laboratory results Abnormal [facility] Glucose [Mass/Vol] 100 mg/dL High 65-99 [facility] Glucose [Mass/Vol] 109 mg/dL High 65 - 99 mg/dL [facility] Interpretation and review of laboratory results Abnormal [facility] Glucose [Mass/Vol] 109 mg/dL High 65-99 [facility] BASIC METABOLIC PANLon 07-03 Anion gap [Moles/Vol] 4 mmol/L Low 5-15 [facility] Comment on above: Performed By: #### C BCA, 5643-2, 1797-8, CMP, 3040-3, 85789-3, PINR, 28874-4 #### [facility] ([id number]) [address], [address] [place] [address] Calcium [Mass/Vol] 8.3 mg/dL Low 8.5-10.5 [facility] Comment on above: Performed By: #### C BCA, 5643-2, 1797-8, CMP, 3040-3, 25623-9, PINR, 34659-6 #### [facility] ([id number]) [address] [place] [address] Chloride [Moles/Vol] 109 mmol/L Normal 98-109 [facility] Comment on above: Performed By: #### C BCA, 5643-2, 8-8, CMP, 3040-3, 42350-6, PINR, 86352-2 #### [facility] ([id number]) [address] [place] [address] CO2 [Moles/Vol] 30 mmol/L Normal 22-32 [facility] Comment on above: Performed By: #### C BCA, 5643-2, 1797-8, CMP, 3040-3, 25842-5, PINR, 21169-6 #### [facility] ([id number]) [address], [address] [place] [address] Creatinine [Mass/Vol] 1.05 mg/dL Normal 0.60-1.30 [facility] Comment on above: Result Comment: METH OD TRACEABLE TO IDMS STANDARD Performed By: #### C BCA, 5643-2, 1797-8, CMP, 3040-3, 91725-5, PINR, 68537-7 #### [facility] ([id number]) [address], [address] [address] GFR/1.73 sq M.predicted among non-blacks MDRD (S/P/Bld) [Vol rate/Area] 73 mL/min/{1.73_m2} Normal >59 [facility] Comment on above: Result Comment: Reported eGFR is based on the CKD-EPI 2020 equation that does not use a race coefficient. Performed By: #### C BCA, 5643-2, 1797-8, CMP, 3040-3, 01813-8, PINR, 40336-8 #### [facility] ([id number]) [address], [address] [place] [address] Glucose [Mass/Vol] 116 mg/dL High 65-99 [facility] Comment on above: Performed By: #### C BCA, 5643-2, 1797-8, CMP, 3040-3, 41851-2, PINR, 02551-1 #### [facility] ([id number]) [address], [address] [place] [address] Potassium [Moles/Vol] 4.2 mmol/L Normal 3.5-5.0 [facility] Comment on above: Performed By: #### C BCA, 5643-2, 1798-8, CMP, 3040-3, 52218-5, PINR, 65513-8 #### [facility] ([id number]) [address], [address] [place] [address] Sodium [Moles/Vol] 143 mmol/L Normal 134-146 [facility] Comment on above: Performed By: #### C BCA, 5643-2, 1798-8, CMP, 3040-3, 78252-6, PINR, 15558-3 #### [facility] ([id number]) [address], [address] [place] [address] Urea nitrogen [Mass/Vol] 14 mg/dL Normal 5-27 [facility] Comment on above: Performed By: #### C BCA, 5643-2, 1798-8, CMP, 3040-3, 14595-4, PINR, 23679-0 #### [facility] ([id number]) [address], [address] [place] [address] Basic Metabolic Panelon - Anion gap [Moles/Vol] 4 mmol/L Low 5 - 15 mmol/L [facility] Calcium [Mass/Vol] 8.3 mg/dL Low 8.5 - 10. 5 mg/dL [facility] Chloride [Moles/Vol] 109 mmol/L 98 - 10 9 mmol/L [facility] CO2 [Moles/Vol] 30 mmol/L 22 - 32 mmol/L [facility] Creatinine [Mass/Vol] 1.05 mg/dL 0.60 - 1.30 mg/dL [facility] Comment on above: METHOD TRACEABLE TO IDMS STANDARD eGFR (CKD-EPI)non-race dependent 73 - PINF [facility] Comment on above: Reported eGFR is based on the CKD-EPI 2020 equation that does not use a race coefficient. Glucose [Mass/Vol] 116 mg/dL High 65 - 99 mg/dL [facility] Interpretation and review of laboratory results Abnormal [facility] Potassium [Moles/Vol] 4.2 mmol/L 3.5 - 5.0 mmol/L [facility] Sodium [Moles/Vol] 143 mmol/L 134 - 146 mmol/L [facility] Urea nitrogen [Mass/Vol] 14 mg/dL 5 - 27 mg/dL [facility] CBC AND AUTO DIFFon 07-03-19 25 ABSOLUTE BASOPHIL 0.0 X10E9/L Normal 0.0-0.2 [facility] Comment on above: Performed By: #### C BCA, 5643-2, 1797-8, CMP, 3040-3, 05726-3, PINR, 15768-5 #### [facility] ([id number]) [address], [address] [place] [address] ABSOLUTE NEUTROPHIL 5.7 X10E9/L Normal 1.5-6.6 [facility] Comment on above: Performed By: #### C BCA, 5643-2, 8, CMP, 3040-3, 02367-0, PINR, 94535-2 #### [facility] ([id number]) [address], [address] [place] [address] Basophils/100 WBC (Bld) 0.4 % Normal [facility] Comment on above: Performed By: #### C BCA, 5643-2, 8, CMP, 3040-3, 82386-2, PINR, 55088-8 #### [facility] ([id number]) [address] [place] [address] Eosinophils (Bld) [#/Vol] 0.1 10*3/uL Normal 0.0-0.4 [facility] Comment on above: Performed By: #### C BCA, 5643-2, 1797-8, CMP, 3040-3, 73711-0, PINR, 44535-7 #### [facility] ([id number]) [address], [address] [place] [address] Eosinophils/100 WBC (Bld) 1.8 % Normal [facility] Comment on above: Performed By: #### C BCA, 5643-2, 1797-8, CMP, 3040-3, 58955-2, PINR, 28688-9 #### [facility] ([id number]) [address], [address] [place] [address] Erythrocyte distribution width (RBC) [Ratio] 15.0 % Normal 11.5-15.0 [facility] Comment on above: Performed By: #### C BCA, 5643-2, 1797-8, CMP, 3040-3, 49333-2, PINR, 41518-4 #### [facility] ([id number]) [address], [address] [place] [address] Hematocrit (Bld) [Volume fraction] 31.9 % Low 39-49 [facility] Comment on above: Performed By: #### C BCA, 5643-2, 8, CMP, 3040-3, 24494-8, PINR, 54166-1 #### [facility] ([id number]) [address], [address] [place] [address] Hemoglobin (Bld) [Mass/Vol] 10.6 g/dL Low 13.0-17.0 [facility] Comment on above: Performed By: #### C BCA, 5643-2, 8, CMP, 3040-3, 43619-2, PINR, 82740-7 #### [facility] ([id number]) [address] [address] [place] [address] Lymphocytes (Bld) [#/Vol] 0.6 10*3/uL Low 1.0-3.5 [facility] Comment on above: Performed By: #### C BCA, 5643-2, 1797-8, CMP, 3040-3, 48857-8, PINR, 50554-4 #### [facility] ([id number]) [address] [address] [place] [address] Lymphocytes/100 WBC (Bld) 8.5 % Normal [facility] Comment on above: Performed By: #### C BCA, 5643-2, 1797-8, CMP, 3040-3, 12372-3, PINR, 67536-5 #### [facility] ([id number]) [address] [address] [place] [address] MCH (RBC) [Entitic mass] 31.1 pg Normal 27-34 [facility] Comment on above: Performed By: #### C BCA, 5643-2, 1797-, CMP, 3040-3, 92731-8, PINR, 64836-8 #### [facility] ([id number]) [address] [address] [place] [address] MCHC (RBC) [Mass/Vol] 33.2 g/dL Normal 32-36 [facility] Comment on above: Performed By: #### C BCA, 5643-2, 8, CMP, 3040-3, 53068-8, PINR, 51000-2 #### [facility] ([id number]) [address] [address] [place] [address] MCV (RBC) [Entitic vol] 94 fL Normal 80-100 [facility] Comment on above: Performed By: #### C BCA, 5643-2, 8, CMP, 3040-3, 91505-7, PINR, 28548-3 #### [facility] ([id number]) [address] [address] [place] [address] Monocytes (Bld) [#/Vol] 0.6 10*3/uL Normal 0-0.9 [facility] Comment on above: Performed By: #### C BCA, 5643-2, 1797-8, CMP, 3040-3, 57873-3, PINR, 93372-7 #### [facility] ([id number]) [address] [place] [address] Monocytes/100 WBC (Bld) 8.1 % Normal P [facility] Comment on above: Performed By: #### C BCA, 5643-2, 8-8, CMP, 3040-3, 95304-9, PINR, 84481-0 #### [facility] ([id number]) [address] [place] [address] Neutrophils/100 WBC (Bld) 81.2 % Normal [facility] Comment on above: Performed By: #### C BCA, 5643-2, 1797-8, CMP, 3040-3, 86616-5, PINR, 91004-0 #### [facility] ([id number]) [address], [facility] [address] [place] [address] Platelet mean volume (Bld) [Entitic vol] 8.4 fL Normal 7-12 [facility] Comment on above: Performed By: #### C BCA, 5643-2, 1797-8, CMP, 3040-3, 09174-4, PINR, 44170-1 #### [facility] ([id number]) [address], [facility] [address] [place] [address] Platelets (Bld) [#/Vol] 216 10*3/uL Normal 150-450 [facility] Comment on above: Performed By: #### C BCA, 5643-2, 1797-8, CMP, 3040-3, 68335-0, PINR, 68736-5 #### [facility] ([id number]) [address] [place] [address] RBC COUNT 3.40 X10E12/L Low 4.10-5.70 [facility] Comment on above: Performed By: #### C BCA, 5643-2, 1797-8, CMP, 3040-3, 15354-9, PINR, 18566-2 #### [facility] ([id number]) [address] [place] [address] WBC (Bld) [#/Vol] 7.0 10*3/uL Normal 4.0-11.0 [facility] Comment on above: Performed By: #### C BCA, 5643-2, 1798-8, CMP, 3040-3, 89956-3, PINR, 42178-1 #### [facility] ([id number]) [address] [place] [address] CBC auto differentialon 06-15 Basophils (Bld) [#/Vol] 0 10*3/uL P [facility] Basophils/100 WBC (Bld) 0.4 % [facility] Eosinophils (Bld) [#/Vol] 0.1 10*3/uL [facility] Eosinophils/100 WBC (Bld) 1.8 % [facility] Erythrocyte distribution width (RBC) [Ratio] 15 % 11.5 - 15.0 % [facility] Hematocrit (Bld) [Volume fraction] 31.9 % Low 39 - 49 % [facility] Hemoglobin (Bld) [Mass/Vol] 10.6 g/dL Low 13.0 - 17.0 g/dL [facility] Interpretation and review of laboratory results Abnormal [facility] Lymphocytes (Bld) [#/Vol] 0.6 10*3/uL Low [facility] Lymphocytes/100 WBC (Bld) 8.5 % [facility] MCH (RBC) [Entitic mass] 31.1 pg 27 - 34 pg [facility] MCHC (RBC) [Mass/Vol] 33.2 g/dL 32 - 3 6 g/dL [facility] MCV (RBC) [Entitic vol] 94 fL 80 - 100 fL [facility] Monocytes (Bld) [#/Vol] 0.6 10*3/uL [facility] Monocytes/100 WBC (Bld) 8.1 % [facility] Neutrophils (Bld) [#/Vol] 5.7 10*3/uL [facility] Neutrophils/100 WBC (Bld) 81.2 % [facility] Platelet mean volume (Bld) [Entitic vol] 8.4 fL 7 - 12 fL [facility] Platelets (Bld) [#/Vol] 216 10*3/uL [facility] RBC (Bld) [#/Vol] 3.4 10*6/uL Low [facility] WBC corrected for nucl RBC Auto (Bld) [#/Vol] 7 [facility] Glucose Glucometer (BldC) [M ass/Vol]on 07-03-2024 Glucose [Mass/Vol] 90 mg/dL 65 - 99 mg/dL [facility] Glucose [Mass/Vol] 90 mg/dL Normal 65-99 [facility] Glucose [Mass/Vol] 101 mg/dL High 65 - 99 mg/dL [facility] Interpretation and review of laboratory results Abnormal [facility] Glucose [Mass/Vol] 101 mg/dL High 65-99 [facility] Glucose [Mass/Vol] 129 mg/dL High 65 - 99 mg/dL [facility] Interpretation and review of laboratory results Abnormal [facility] Glucose [Mass/Vol] 129 mg/dL High 65-99 [facility] Glucose [Mass/Vol] 129 mg/dL High 65 - 99 mg/dL [facility] Interpretation and review of laboratory results Abnormal [facility] Glucose [Mass/Vol] 129 mg/dL High 65-99 [facility] Glucose [Mass/Vol] 116 mg/dL High 65 - 99 mg/dL [facility] Interpretation and review of laboratory results Abnormal [facility] Glucose [Mass/Vol] 116 mg/dL High 65-99 [facility] Glucose [Mass/Vol] 125 mg/dL High 65 - 99 mg/dL [facility] Interpretation and review of laboratory results Abnormal [facility] Glucose [Mass/Vol] 125 mg/dL High 65-99 [facility] HGBon 07-03-2024 Hematocrit (Bld) [Volume fraction] 33.4 % Low 39-49 [facility] Comment on above: Performed By: #### C BCA, 5643-2, 1798-8, CMP, 3040-3, 93743-0, PINR, 65050-6 #### [facility] [facility] ([id number]) [address], [address] [place] [address] Hemoglobin (Bld) [Mass/Vol] 11.0 g/dL Low 13.0-17.0 [facility] Comment on above: Performed By: #### C BCA, 5643-2, 1798-8, CMP, 3040-3, 71611-1, PINR, 77549-8 #### [facility] ([id number]) [address], [address] [place] [address] Hemoglobin and hematocrit, b loodon 07-03-2024 Hemoglobin (Bld) [Mass/Vol] 11 g/dL Low 13.0 - 17.0 g/dL [facility] Interpretation and review of laboratory results Abnormal [facility].doppler Lower extremity v ein - bilateralon [...] - bilateralOrdered By: Brian Valverde on 07-03-2024 [facility] Work Phone: BASIC METABOLIC PANLon 07-02 Anion gap [Moles/Vol] 8 mmol/L Normal 5-15 [facility] Comment on above: Performed By: #### C BCA, 5643-2, 1797-8, CMP, 3040-3, 98704-9, PINR, 01711-9 #### [facility] ([id number]) [address], [address] [place] [address] Calcium [Mass/Vol] 8.2 mg/dL Low 8.5-10.5 [facility] Comment on above: Performed By: #### C BCA, 5643-2, 1797-8, CMP, 3040-3, 50354-8, PINR, 87953-4 #### [facility] ([id number]) [address], [address] [place] [address] Chloride [Moles/Vol] 108 mmol/L Normal 98-109 [facility] Comment on above: Performed By: #### C BCA, 5643-2, 1797-8, CMP, 3040-3, 62681-7, PINR, 37440-8 #### [facility] ([id number]) [address], [address] [place] [address] CO2 [Moles/Vol] 26 mmol/L Normal 22-32 [facility] Comment on above: Performed By: #### C BCA, 5643-2, 1797-8, CMP, 3040-3, 92807-0, PINR, 83003-1 #### [facility] ([id number]) [address], [address] [place] [address] Creatinine [Mass/Vol] 1.15 mg/dL Normal 0.60-1.30 [facility] Comment on above: Result Comment: METH OD TRACEABLE TO IDMS STANDARD Performed By: #### C BCA, 5643-2, 1797-8, CMP, 3040-3, 91518-9, PINR, 24857-7 #### [facility] ([id number]) [address] [address] GFR/1.73 sq M.predicted among non-blacks MDRD (S/P/Bld) [Vol rate/Area] 65 mL/min/{1.73_m2} Normal >59 Pr [facility] Comment on above: Result Comment: Reported eGFR is based on the CKD-EPI 2020 equation that does not use a race coefficient. Performed By: #### C BCA, 5643-2, 1797-8, CMP, 3040-3, 24973-1, PINR, 38352-6 #### [facility] ([id number]) [address], [facility] [address] [place] [address] Glucose [Mass/Vol] 93 mg/dL Normal 65-99 [facility] Comment on above: Performed By: #### C BCA, 5643-2, 1797-8, CMP, 3040-3, 30123-2, PINR, 94215-3 #### [facility] ([id number]) [address], [address] [address] Potassium [Moles/Vol] 4.1 mmol/L Normal 3.5-5.0 [facility] Comment on above: Performed By: #### C BCA, 5643-2, 1797-8, CMP, 3040-3, 07485-1, PINR, 25784-3 #### [facility] ([id number]) [address], [address] [place] [address] Sodium [Moles/Vol] 142 mmol/L Normal 134-146 [facility] Comment on above: Performed By: #### C BCA, 5643-2, 1797-8, CMP, 3040-3, 65245-0, PINR, 30138-8 #### [facility] ([id number]) [address], [address] [place] [address] Urea nitrogen [Mass/Vol] 13 mg/dL Normal 5-27 [facility] Comment on above: Performed By: #### C BCA, 5643-2, 8-8, CMP, 3040-3, 01707-5, PINR, 38877-5 #### [facility] ([id number]) [address] [place] [address] Basic Metabolic Panelon 06-15 Anion gap [Moles/Vol] 8 mmol/L 5 - 15 mmol/L [facility] Calcium [Mass/Vol] 8.2 mg/dL Low 8.5 - 10. 5 mg/dL [facility] Chloride [Moles/Vol] 108 mmol/L 98 - 10 9 mmol/L [facility] CO2 [Moles/Vol] 26 mmol/L 22 - 32 mmol/L [facility] Creatinine [Mass/Vol] 1.15 mg/dL 0.60 - 1.30 mg/dL [facility] Comment on above: METHOD TRACEABLE TO IDND STANDARD eGFR (CKD-EPI)non-race dependent 65 - PINF [facility] Comment on above: Reported eGFR is based on the CKD-EPI 2020 equation that does not use a race coefficient. Glucose [Mass/Vol] 93 mg/dL 65 - 99 mg/dL [facility] Interpretation and review of laboratory results Abnormal [facility] Potassium [Moles/Vol] 4.1 mmol/L 3.5 - 5.0 mmol/L [facility] Sodium [Moles/Vol] 142 mmol/L 134 - 146 mmol/L [facility] Urea nitrogen [Mass/Vol] 13 mg/dL 5 - 27 mg/dL [facility] CBC AND AUTO DIFFon 07-02-19 25 ABSOLUTE BASOPHIL 0.0 X10E9/L Normal 0.0-0.2 [facility] Comment on above: Performed By: #### C BCA, 5643-2, 1798-8, CMP, 3040-3, 03491-3, PINR, 47963-7 #### [facility] ([id number]) [address], [address] [place] [address] ABSOLUTE NEUTROPHIL 6.1 X10E9/L Normal 1.5-6.6 [facility] Comment on above: Performed By: #### C BCA, 5643-2, 8, CMP, 3040-3, 68139-7, PINR, 93928-1 #### [facility] ([id number]) [address], [address] [place] [address] Basophils/100 WBC (Bld) 0.3 % Normal [facility] Comment on above: Performed By: #### C BCA, 5643-2, 1797-12, CMP, 3040-3, 11034-0, PINR, 61500-3 #### [facility] ([id number]) [address], [address] [address] Eosinophils (Bld) [#/Vol] 0.1 10*3/uL Normal 0.0-0.4 [facility] Comment on above: Performed By: #### C BCA, 5643-2, 1797-12, CMP, 3040-3, 29629-5, PINR, 93010-6 #### [facility] ([id number]) [address] [address] Eosinophils/100 WBC (Bld) 1.5 % Normal [facility] Comment on above: Performed By: #### C BCA, 5643-2, 8, CMP, 3040-3, 72320-0, PINR, 67106-9 #### [facility] ([id number]) [address] [address] [place] [address] Erythrocyte distribution width (RBC) [Ratio] 15.5 % High 11.5-15.0 [facility] Comment on above: Performed By: #### C BCA, 5643-2, 8, CMP, 3040-3, 56253-7, PINR, 05755-5 #### [facility] ([id number]) [address], [address] [place] [address] Hematocrit (Bld) [Volume fraction] 31.2 % Low 39-49 [facility] Comment on above: Performed By: #### C BCA, 5643-2, 1797-8, CMP, 3040-3, 47907-7, PINR, 96482-3 #### [facility] ([id number]) [address], [address] [place] [address] Hemoglobin (Bld) [Mass/Vol] 10.7 g/dL Low 13.0-17.0 [facility] Comment on above: Performed By: #### C BCA, 5643-2, 1797-12, CMP, 3040-3, 49161-7, PINR, 37630-3 #### [facility] ([id number]) [address], [address] [place] [address] Lymphocytes (Bld) [#/Vol] 0.6 10*3/uL Low 1.0-3.5 [facility] Comment on above: Performed By: #### C BCA, 5643-2, 1797-12, CMP, 3040-3, 26877-8, PINR, 21570-5 #### [facility] ([id number]) [address], [address] [place] [address] Lymphocytes/100 WBC (Bld) 8.9 % Normal [facility] Comment on above: Performed By: #### C BCA, 5643-2, 8, CMP, 3040-3, 83088-0, PINR, 31747-3 #### [facility] ([id number]) [address], [address] [place] [address] MCH (RBC) [Entitic mass] 31.8 pg Normal 27-34 [facility] Comment on above: Performed By: #### C BCA, 5643-2, 1797-8, CMP, 3040-3, 53115-0, PINR, 62003-4 #### [facility] ([id number]) [address], [address] [place] [address] MCHC (RBC) [Mass/Vol] 34.3 g/dL Normal 32-36 [facility] Comment on above: Performed By: #### C BCA, 5643-2, 1797-8, CMP, 3040-3, 92393-9, PINR, 16105-6 #### [facility] ([id number]) [address], [address] [place] [address] MCV (RBC) [Entitic vol] 93 fL Normal 80-100 [facility] Comment on above: Performed By: #### C BCA, 5643-2, 1797-8, CMP, 3040-3, 86953-3, PINR, 83453-4 #### [facility] ([id number]) [address], [address] [place] [address] Monocytes (Bld) [#/Vol] 0.4 10*3/uL Normal 0-0.9 [facility] Comment on above: Performed By: #### C BCA, 5643-2, 1797-8, CMP, 3040-3, 30132-1, PINR, 56605-6 #### [facility] ([id number]) [address], [address] [place] [address] Monocytes/100 WBC (Bld) 5.9 % Normal P [facility] Comment on above: Performed By: #### C BCA, 5643-2, 1797-8, CMP, 3040-3, 93870-4, PINR, 11527-7 #### [facility] ([id number]) [address], [address] [place] [address] Neutrophils/100 WBC (Bld) 83.4 % Normal [facility] Comment on above: Performed By: #### C BCA, 5643-2, 1797-8, CMP, 3040-3, 91247-4, PINR, 14257-6 #### [facility] ([id number]) [address] [address] Platelet mean volume (Bld) [Entitic vol] 8.5 fL Normal 7-12 [facility] Comment on above: Performed By: #### C BCA, 5643-2, 1797-8, CMP, 3040-3, 02103-8, PINR, 72031-4 #### [facility] ([id number]) [address] [address] Platelets (Bld) [#/Vol] 228 10*3/uL Normal 150-450 [facility] Comment on above: Performed By: #### C BCA, 5643-2, 1797-8, CMP, 3040-3, 09146-2, PINR, 69516-1 #### [facility] ([id number]) [address] [address] RBC COUNT 3.36 X10E12/L Low 4.10-5.70 [facility] Comment on above: Performed By: #### C BCA, 5643-2, 1797-8, CMP, 3040-3, 69777-0, PINR, 35348-8 #### [facility] ([id number]) [address] [address] WBC (Bld) [#/Vol] 7.3 10*3/uL Normal 4.0-11.0 [facility] Comment on above: Performed By: #### C BCA, 5643-2, 1797-8, CMP, 3040-3, 68060-0, PINR, 63148-1 #### [facility] ([id number]) [address] [address] CBC auto differentialon 06-15 Basophils (Bld) [#/Vol] 0 10*3/uL P [facility] Basophils/100 WBC (Bld) 0.3 % P [facility] Eosinophils (Bld) [#/Vol] 0.1 10*3/uL [facility] Eosinophils/100 WBC (Bld) 1.5 % [facility] Erythrocyte distribution width (RBC) [Ratio] 15.5 % High 11.5 - 15.0 % [facility] Hematocrit (Bld) [Volume fraction] 31.2 % Low 39 - 49 % [facility] Hemoglobin (Bld) [Mass/Vol] 10.7 g/dL Low 13.0 - 17.0 g/dL [facility] Interpretation and review of laboratory results Abnormal [facility] Lymphocytes (Bld) [#/Vol] 0.6 10*3/uL Low [facility] Lymphocytes/100 WBC (Bld) 8.9 % [facility] MCH (RBC) [Entitic mass] 31.8 pg 27 - 34 pg [facility] MCHC (RBC) [Mass/Vol] 34.3 g/dL 32 - 3 6 g/dL [facility] MCV (RBC) [Entitic vol] 93 fL 80 - 100 fL [facility] Monocytes (Bld) [#/Vol] 0.4 10*3/uL [facility] Monocytes/100 WBC (Bld) 5.9 % [facility] Neutrophils (Bld) [#/Vol] 6.1 10*3/uL [facility] Neutrophils/100 WBC (Bld) 83.4 % [facility] Platelet mean volume (Bld) [Entitic vol] 8.5 fL 7 - 12 fL [facility] Platelets (Bld) [#/Vol] 228 10*3/uL [facility] RBC (Bld) [#/Vol] 3.36 10*6/uL Low [facility] WBC corrected for nucl RBC Auto (Bld) [#/Vol] 7.3 [facility] Glucose Glucometer (BldC) [M ass/Vol]on 07-02-2024 Glucose [Mass/Vol] 103 mg/dL High 65 - 99 mg/dL [facility] Interpretation and review of laboratory results Abnormal [facility] Glucose [Mass/Vol] 103 mg/dL High 65-99 [facility] Glucose [Mass/Vol] 144 mg/dL High 65 - 99 mg/dL [facility] Interpretation and review of laboratory results Abnormal [facility] Glucose [Mass/Vol] 144 mg/dL High 65-99 [facility] Glucose [Mass/Vol] 158 mg/dL High 65 - 99 mg/dL [facility] Interpretation and review of laboratory results Abnormal [facility] Glucose [Mass/Vol] 158 mg/dL High 65-99 [facility] Glucose [Mass/Vol] 87 mg/dL 65 - 99 mg/dL [facility] Glucose [Mass/Vol] 87 mg/dL Normal 65-99 [facility] Glucose [Mass/Vol] 90 mg/dL 65 - 99 mg/dL [facility] Glucose [Mass/Vol] 90 mg/dL Normal 65-99 [facility] Hematocrit (Bld) [Volume fraction] 34.3 % Low 39-49 [facility] Comment on above: Performed By: #### C HERNANDEZ, 5643-2, 1798-8, CMP, 3040-3, 57026-1, PINR, 94393-5 #### [facility] ([id number]) [address], [address] [place] [address] Hemoglobin (Bld) [Mass/Vol] 11.4 g/dL Low 13.0-17.0 [facility] Comment on above: Performed By: #### C HERNANDEZ, 5643-2, 1798-8, CMP, 3040-3, 24585-5, PINR, 82284-5 #### [facility] ([id number]) [address], [address] [place] [address] Hemoglobin and hematocrit, b loodon 07-02-2024 Hematocrit (Bld) [Volume fraction] 34.3 % Low 39 - 49 % [facility] Hemoglobin (Bld) [Mass/Vol] 11.4 g/dL Low 13.0 - 17.0 g/dL [facility] Interpretation and review of laboratory results Abnormal [facility].doppler Lower extremity v ein - bilateralon 07-02-2024 Radiology Study observation (narrative) [facility] BASIC METABOLIC PANLon 07-01 Anion gap [Moles/Vol] 5 mmol/L Normal 5-15 [facility] Comment on above: Performed By: #### C BCA, 5643-2, 1798-8, CMP, 3040-3, 95197-7, PINR, 09513-2 #### [facility] ([id number]) [address], [address] [place] [address] Calcium [Mass/Vol] 7.9 mg/dL Low 8.5-10.5 [facility] Comment on above: Performed By: #### C BCA, 5643-2, 8-8, CMP, 3040-3, 43779-1, PINR, 79274-1 #### [facility] ([id number]) [address], [address] [place] [address] Chloride [Moles/Vol] 111 mmol/L High 98-109 [facility] Comment on above: Performed By: #### C BCA, 5643-2, 8-8, CMP, 3040-3, 27379-6, PINR, 51986-2 #### [facility] ([id number]) [address] [place] [address] CO2 [Moles/Vol] 25 mmol/L Normal 22-32 [facility] Comment on above: Performed By: #### C BCA, 5643-2, 1798-8, CMP, 3040-3, 24497-7, PINR, 01097-2 #### [facility] ([id number]) [address] [place] [address] Creatinine [Mass/Vol] 1.24 mg/dL Normal 0.60-1.30 [facility] Comment on above: Result Comment: METH OD TRACEABLE TO IDMS STANDARD Performed By: #### C BCA, 5643-2, 1797-8, CMP, 3040-3, 71063-5, PINR, 26349-4 #### [facility] ([id number]) [address], [address] [place] [address] GFR/1.73 sq M.predicted among non-blacks MDRD (S/P/Bld) [Vol rate/Area] 60 mL/min/{1.73_m2} Normal >59 Pr [facility] Comment on above: Result Comment: Reported eGFR is based on the CKD-EPI 2020 equation that does not use a race coefficient. Performed By: #### C BCA, 5643-2, 1797-8, CMP, 3040-3, 63703-2, PINR, 45761-3 #### [facility] ([id number]) [address], [address] [place] [address] Glucose [Mass/Vol] 103 mg/dL High 65-99 [facility] Comment on above: Performed By: #### C BCA, 5643-2, 1797-8, CMP, 3040-3, 57298-5, PINR, 85495-2 #### [facility] ([id number]) [address], [address] [place] [address] Potassium [Moles/Vol] 3.7 mmol/L Normal 3.5-5.0 [facility] Comment on above: Performed By: #### C BCA, 5643-2, 1797-8, CMP, 3040-3, 64890-8, PINR, 78848-6 #### [facility] ([id number]) [address], [address] [place] [address] Sodium [Moles/Vol] 141 mmol/L Normal 134-146 [facility] Comment on above: Performed By: #### C BCA, 5643-2, 1798-8, CMP, 3040-3, 38228-1, PINR, 18881-3 #### [facility] ([id number]) [address], [address] [place] [address] Urea nitrogen [Mass/Vol] 16 mg/dL Normal 5-27 [facility] Comment on above: Performed By: #### C BCA, 5643-2, 1798-8, CMP, 3040-3, 20542-1, PINR, 86600-1 #### [facility] ([id number]) [address] [place] [address] Basic Metabolic Panelon 06-15 Anion gap [Moles/Vol] 5 mmol/L 5 - 15 mmol/L [facility] Calcium [Mass/Vol] 7.9 mg/dL Low 8.5 - 10. 5 mg/dL [facility] Chloride [Moles/Vol] 111 mmol/L High 98 - 10 9 mmol/L [facility] CO2 [Moles/Vol] 25 mmol/L 22 - 32 mmol/L [facility] Creatinine [Mass/Vol] 1.24 mg/dL 0.60 - 1.30 mg/dL [facility] Comment on above: METHOD TRACEABLE TO IDND STANDARD eGFR (CKD-EPI)non-race dependent 60 - PINF [facility] Comment on above: Reported eGFR is based on the CKD-EPI 2020 equation that does not use a race coefficient. Glucose [Mass/Vol] 103 mg/dL High 65 - 99 mg/dL [facility] Interpretation and review of laboratory results Abnormal [facility] Potassium [Moles/Vol] 3.7 mmol/L 3.5 - 5.0 mmol/L [facility] Sodium [Moles/Vol] 141 mmol/L 134 - 146 mmol/L [facility] Urea nitrogen [Mass/Vol] 16 mg/dL 5 - 27 mg/dL [facility] CBC AND AUTO DIFFon 07-01-19 25 ABSOLUTE BASOPHIL 0.0 X10E9/L Normal 0.0-0.2 [facility] Comment on above: Performed By: #### C BCA, 5643-2, 1797-8, CMP, 3040-3, 00979-2, PINR, 24073-0 #### [facility] ([id number]) [address], [address] [place] [address] ABSOLUTE NEUTROPHIL 8.1 X10E9/L High 1.5-6.6 [facility] Comment on above: Performed By: #### C BCA, 5643-2, 1797-8, CMP, 3040-3, 23527-1, PINR, 34904-2 #### [facility] ([id number]) [address], [address] [place] [address] Basophils/100 WBC (Bld) 0.4 % Normal [facility] Comment on above: Performed By: #### C BCA, 5643-2, 1797-8, CMP, 3040-3, 25806-1, PINR, 46878-3 #### [facility] ([id number]) [address], [address] [place] [address] Eosinophils (Bld) [#/Vol] 0.1 10*3/uL Normal 0.0-0.4 [facility] Comment on above: Performed By: #### C BCA, 5643-2, 1797-8, CMP, 3040-3, 69714-1, PINR, 32781-9 #### [facility] ([id number]) [address], [address] [place] [address] Eosinophils/100 WBC (Bld) 1.5 % Normal [facility] Comment on above: Performed By: #### C BCA, 5643-2, 1797-8, CMP, 3040-3, 54337-7, PINR, 75109-5 #### [facility] ([id number]) [address], [address] [place] [address] Erythrocyte distribution width (RBC) [Ratio] 15.7 % High 11.5-15.0 [facility] Comment on above: Performed By: #### C BCA, 5643-2, 1797-8, CMP, 3040-3, 18859-4, PINR, 44460-4 #### [facility] ([id number]) [address], [address] [place] [address] Hematocrit (Bld) [Volume fraction] 29.9 % Low 39-49 [facility] Comment on above: Performed By: #### C BCA, 5643-2, 1797-8, CMP, 3040-3, 17059-4, PINR, 25931-5 #### [facility] ([id number]) [address], [address] [place] [address] Hemoglobin (Bld) [Mass/Vol] 10.2 g/dL Low 13.0-17.0 [facility] Comment on above: Performed By: #### C BCA, 5643-2, 8, CMP, 3040-3, 62964-8, PINR, 31260-2 #### [facility] ([id number]) [address] [address] [place] [address] Lymphocytes (Bld) [#/Vol] 0.7 10*3/uL Low 1.0-3.5 [facility] Comment on above: Performed By: #### C BCA, 5643-2, 8, CMP, 3040-3, 31358-6, PINR, 75480-2 #### [facility] ([id number]) [address] [address] [place] [address] Lymphocytes/100 WBC (Bld) 6.8 % Normal [facility] Comment on above: Performed By: #### C BCA, 5643-2, 1797-8, CMP, 3040-3, 55588-5, PINR, 50244-0 #### [facility] ([id number]) [address] [place] [address] MCH (RBC) [Entitic mass] 31.3 pg Normal 27-34 [facility] Comment on above: Performed By: #### C BCA, 5643-2, 1797-8, CMP, 3040-3, 71385-4, PINR, 37037-8 #### [facility] ([id number]) [address], [address] [place] [address] MCHC (RBC) [Mass/Vol] 34.2 g/dL Normal 32-36 [facility] Comment on above: Performed By: #### C BCA, 5643-2, 8, CMP, 3040-3, 65887-3, PINR, 36764-3 #### [facility] ([id number]) [address], [facility] [address] [place] [address] MCV (RBC) [Entitic vol] 92 fL Normal 80-100 P [facility] Comment on above: Performed By: #### C BCA, 5643-2, 1797-8, CMP, 3040-3, 75364-2, PINR, 78290-8 #### [facility] ([id number]) [address], [address] [address] Monocytes (Bld) [#/Vol] 0.6 10*3/uL Normal 0-0.9 [facility] Comment on above: Performed By: #### C BCA, 5643-2, 8, CMP, 3040-3, 88734-2, PINR, 12524-2 #### [facility] ([id number]) [address] [address] [place] [address] Monocytes/100 WBC (Bld) 6.3 % Normal P [facility] Comment on above: Performed By: #### C BCA, 5643-2, 1797-8, CMP, 3040-3, 90487-4, PINR, 38748-8 #### [facility] ([id number]) [address] [address] [place] [address] Neutrophils/100 WBC (Bld) 85.0 % Normal [facility] Comment on above: Performed By: #### C BCA, 5643-2, 1797-8, CMP, 3040-3, 34812-5, PINR, 26615-2 #### [facility] ([id number]) [address], [facility] [address] [place] [address] Platelet mean volume (Bld) [Entitic vol] 8.6 fL Normal 7-12 [facility] Comment on above: Performed By: #### C BCA, 5643-2, 1797-8, CMP, 3040-3, 99931-0, PINR, 87852-6 #### [facility] ([id number]) [address] [address] Platelets (Bld) [#/Vol] 235 10*3/uL Normal 150-450 [facility] Comment on above: Performed By: #### C BCA, 5643-2, 1797-8, CMP, 3040-3, 23731-3, PINR, 53294-6 #### [facility] ([id number]) [address] [address] RBC COUNT 3.27 X10E12/L Low 4.10-5.70 [facility] Comment on above: Performed By: #### C BCA, 5643-2, 1797-8, CMP, 3040-3, 65197-4, PINR, 10144-7 #### [facility] [facility] ([id number]) [address] [address] [place] [address] WBC (Bld) [#/Vol] 9.5 10*3/uL Normal 4.0-11.0 [facility] Comment on above: Performed By: #### C BCA, 5643-2, 1797-8, CMP, 3040-3, 14289-1, PINR, 28862-2 #### [facility] ([id number]) [address] [place] [address] CBC auto differentialon 06-15 Basophils (Bld) [#/Vol] [...] 07-01-2024 IONIZED CALCIUM 4.8 mg/dL Normal 4.5-5.3 [facility] Comment on above: Performed By: #### C BCA, 5643-2, 1798-8, CMP, 3040-3, 56936-9, PINR, 47288-0 #### [facility] ([id number]) [address] [place] [address], [address] [place] [address] Glucose Glucometer (BldC) [M ass/Vol]on 07-01-2024 Glucose [Mass/Vol] 106 mg/dL High 65 - 99 mg/dL [facility] Interpretation and review of laboratory results Abnormal [facility] Glucose [Mass/Vol] 106 mg/dL High 65-99 [facility] Glucose [Mass/Vol] 133 mg/dL High 65 - 99 mg/dL [facility] Interpretation and review of laboratory results Abnormal [facility] Glucose [Mass/Vol] 133 mg/dL High 65-99 [facility] Glucose [Mass/Vol] 96 mg/dL 65 - 99 mg/dL [facility] Glucose [Mass/Vol] 96 mg/dL Normal 65-99 [facility] Glucose [Mass/Vol] 118 mg/dL High 65 - 99 mg/dL [facility] Interpretation and review of laboratory results Abnormal [facility] Glucose [Mass/Vol] 118 mg/dL High 65-99 [facility] Glucose [Mass/Vol] 92 mg/dL 65 - 99 mg/dL [facility] Glucose [Mass/Vol] 92 mg/dL Normal 65-99 [facility] Glucose [Mass/Vol] 90 mg/dL 65 - 99 mg/dL [facility] Glucose [Mass/Vol] 90 mg/dL Normal 65-99 [facility] HGBon 07-01-2024 Hematocrit (Bld) [Volume fraction] 31.8 % Low 39-49 [facility] Comment on above: Performed By: #### C BCA, 5643-2, 1798-8, CMP, 3040-3, 82163-7, PINR, 00909-6 #### [facility] ([id number]) [address], [address] [place] [address] Hemoglobin (Bld) [Mass/Vol] 10.6 g/dL Low 13.0-17.0 [facility] Comment on above: Performed By: #### C BCA, 5643-2, 1797-8, CMP, 3040-3, 79363-9, PINR, 91065-7 #### [facility] ([id number]) [address], [address] [place] [address] Hemoglobin and hematocrit, b loodon 07-01-2024 Hematocrit (Bld) [Volume fraction] 31.8 % Low 39 - 49 % [facility] Hemoglobin (Bld) [Mass/Vol] 10.6 g/dL Low 13.0 - 17.0 g/dL [facility] Interpretation and review of laboratory results Abnormal [facility] Ionized calciumon 07-01-2024 Calcium.ionized (Bld) [Mass/Vol] 4.8 mg/dL 4.5 - 5.3 mg/dL [facility] Ionized magnesiumon 07-01-19 Magnesium Ionized ISE (Bld) [Moles/Vol] 0.55 mmol/L 0.45 - 0.74 mmol/L [facility] Comment on above: NEW REFERENCE RANGE Magnesium Ionized ISE (Bld) [Moles/Vol]on 07-01-2024 Magnesium [Moles/Vol] 0.55 mmol/L Normal 0.45-0.74 [facility] Comment on above: Result Comment: NEW REFERENCE RANGE Performed By: #### C BCA, 5643-2, 8-8, CMP, 3040-3, 08602-1, PINR, 77259-1 #### [facility] ([id number]) [address], [address] [place] [address] No Panel Informationon 07-01 [facility] PHOSPHORUSon 07-01-2024 Phosphate [Mass/Vol] 2.4 mg/dL Normal 2.4-4.9 [facility] Comment on above: Performed By: #### C BCA, 5643-2, 1798-8, CMP, 3040-3, 66939-3, PINR, 53664-0 #### [facility] ([id number]) [address], [address] [place] [address] POTASSIUMon 07-01-2024 Potassium [Moles/Vol] 4.2 mmol/L Normal 3.5-5.0 [facility] Comment on above: Performed By: #### C BCA, 5643-2, 8-8, CMP, 3040-3, 31176-8, PINR, 17919-1 #### [facility] ([id number]) [address], [address] [place] [address] Potassium [Moles/Vol] 3.8 mmol/L Normal 3.5-5.0 [facility] Comment on above: Performed By: #### C BCA, 5643-2, 8-8, CMP, 3040-3, 29379-5, PINR, 53587-6 #### [facility] ([id number]) [address], [address] [place] [address] Phosphoruson 07-01-2024 Phosphate [Mass/Vol] 2.4 mg/dL 2.4 - 4 .9 mg/dL [facility] Potassiumon 07-01-2024 Potassium [Moles/Vol] 4.2 mmol/L 3.5 - 5.0 mmol/L [facility] Potassium [Moles/Vol] 3.8 mmol/L 3.5 - 5.0 mmol/L [facility] Potassium [Moles/Vol]on 06-15 [facility] BASIC METABOLIC PANLon 06-30 Anion gap [Moles/Vol] 8 mmol/L Normal 5-15 [facility] Comment on above: Performed By: #### C BCA, 5643-2, 1797-8, CMP, 3040-3, 94893-1, PINR, 12026-1 #### [facility] ([id number]) [address], [address] [place] [address] Calcium [Mass/Vol] 7.4 mg/dL Low 8.5-10.5 [facility] Comment on above: Performed By: #### C BCA, 5643-2, 1797-8, CMP, 3040-3, 21678-0, PINR, 11841-5 #### [facility] ([id number]) [address], [address] [place] [address] Chloride [Moles/Vol] 112 mmol/L High 98-109 [facility] Comment on above: Performed By: #### C BCA, 5643-2, 1797-8, CMP, 3040-3, 20679-1, PINR, 11973-0 #### [facility] ([id number]) [address], [address] [place] [address] CO2 [Moles/Vol] 22 mmol/L Normal 22-32 [facility] Comment on above: Performed By: #### C BCA, 5643-2, 1797-8, CMP, 3040-3, 97063-6, PINR, 99887-2 #### [facility] ([id number]) [address], [address] [place] [address] Creatinine [Mass/Vol] 1.39 mg/dL High 0.60-1.30 [facility] Comment on above: Result Comment: METH OD TRACEABLE TO IDMS STANDARD Performed By: #### C BCA, 5643-2, 1797-8, CMP, 3040-3, 33422-6, PINR, 63806-0 #### [facility] ([id number]) [address], [address] [address] GFR/1.73 sq M.predicted among non-blacks MDRD (S/P/Bld) [Vol rate/Area] 52 mL/min/{1.73_m2} Low >59 [facility] Comment on above: Result Comment: Reported eGFR is based on the CKD-EPI 2020 equation that does not use a race coefficient. Performed By: #### C BCA, 5643-2, 8, CMP, 3040-3, 35997-4, PINR, 37024-5 #### [facility] ([id number]) [address] [address] Glucose [Mass/Vol] 69 mg/dL Normal 65-99 [facility] Comment on above: Performed By: #### C BCA, 5643-2, 1797-12, CMP, 3040-3, 97740-8, PINR, 17317-9 #### [facility] ([id number]) [address] [address] Potassium [Moles/Vol] 4.2 mmol/L Normal 3.5-5.0 [facility] Comment on above: Performed By: #### C BCA, 5643-2, 1797-12, CMP, 3040-3, 05582-6, PINR, 34687-4 #### [facility] ([id number]) [address] [address] Sodium [Moles/Vol] 142 mmol/L Normal 134-146 [facility] Comment on above: Performed By: #### C BCA, 5643-2, 8, CMP, 3040-3, 55055-7, PINR, 43320-9 #### [facility] ([id number]) [address] [address] Urea nitrogen [Mass/Vol] 20 mg/dL Normal 5-27 [facility] Comment on above: Performed By: #### C BCA, 5643-2, 1798-8, CMP, 3040-3, 36770-8, PINR, 32031-9 #### [facility] ([id number]) [address] [place] [address] Bacteria identified Cx Nom ( U)on 06-30-2024 Service comment (Unsp spec) [Interp] URINE RECEIVED WITHOUT PRESERVATIVE [facility] Service comment (Unsp spec) [Interp] NO GROWTH AT <1000 CFU/mL [facility] Basic Metabolic Panelon 06-15 Anion gap [Moles/Vol] 8 mmol/L 5 - 15 mmol/L [facility] Calcium [Mass/Vol] 7.4 mg/dL Low 8.5 - 10. 5 mg/dL [facility] Chloride [Moles/Vol] 112 mmol/L High 98 - 10 9 mmol/L [facility] CO2 [Moles/Vol] 22 mmol/L 22 - 32 mmol/L [facility] Creatinine [Mass/Vol] 1.39 mg/dL High 0.60 - 1.30 mg/dL [facility] Comment on above: METHOD TRACEABLE TO IDND STANDARD eGFR (CKD-EPI)non-race dependent 52 Low - PINF [facility] Comment on above: Reported eGFR is based on the CKD-EPI 2020 equation that does not use a race coefficient. Glucose [Mass/Vol] 69 mg/dL 65 - 99 mg/dL [facility] Interpretation and review of laboratory results Abnormal [facility] Potassium [Moles/Vol] 4.2 mmol/L 3.5 - 5.0 mmol/L [facility] Sodium [Moles/Vol] 142 mmol/L 134 - 146 mmol/L [facility] Urea nitrogen [Mass/Vol] 20 mg/dL 5 - 27 mg/dL [facility] CBC AND AUTO DIFFon 06-30-19 25 ABSOLUTE BASOPHIL 0.1 X10E9/L Normal 0.0-0.2 [facility] Comment on above: Performed By: #### C BCA, 5643-2, 8-8, CMP, 3040-3, 92238-4, PINR, 35872-4 #### [facility] ([id number]) [address], [address] [place] [address] ABSOLUTE NEUTROPHIL 8.7 X10E9/L High 1.5-6.6 [facility] Comment on above: Performed By: #### C BCA, 5643-2, 8, CMP, 3040-3, 43742-1, PINR, 61469-5 #### [facility] ([id number]) [address], [address] [place] [address] Basophils/100 WBC (Bld) 1.4 % Normal [facility] Comment on above: Performed By: #### C BCA, 5643-2, 1797-12, CMP, 3040-3, 76155-5, PINR, 87318-8 #### [facility] ([id number]) [address], [address] [place] [address] Eosinophils (Bld) [#/Vol] 0.1 10*3/uL Normal 0.0-0.4 [facility] Comment on above: Performed By: #### C BCA, 5643-2, 1797-12, CMP, 3040-3, 28111-8, PINR, 71248-8 #### [facility] ([id number]) [address], [address] [place] [address] Eosinophils/100 WBC (Bld) 0.6 % Normal [facility] Comment on above: Performed By: #### C BCA, 5643-2, 8, CMP, 3040-3, 54071-0, PINR, 27982-7 #### [facility] ([id number]) [address], [address] [place] [address] Erythrocyte distribution width (RBC) [Ratio] 15.6 % High 11.5-15.0 [facility] Comment on above: Performed By: #### C BCA, 5643-2, 1797-8, CMP, 3040-3, 18859-2, PINR, 79158-7 #### [facility] ([id number]) [address], [address] [place] [address] Hematocrit (Bld) [Volume fraction] 30.3 % Low 39-49 [facility] Comment on above: Performed By: #### C BCA, 5643-2, 1797-8, CMP, 3040-3, 54491-4, PINR, 28255-3 #### [facility] ([id number]) [address], [address] [place] [address] Hemoglobin (Bld) [Mass/Vol] 10.4 g/dL Low 13.0-17.0 [facility] Comment on above: Performed By: #### C BCA, 5643-2, 1797-12, CMP, 3040-3, 37131-2, PINR, 83918-0 #### [facility] ([id number]) [address], [address] [place] [address] Lymphocytes (Bld) [#/Vol] 0.6 10*3/uL Low 1.0-3.5 [facility] Comment on above: Performed By: #### C BCA, 5643-2, 1797-12, CMP, 3040-3, 49616-9, PINR, 87901-7 #### [facility] ([id number]) [address], [address] [place] [address] Lymphocytes/100 WBC (Bld) 5.6 % Normal [facility] Comment on above: Performed By: #### C BCA, 5643-2, 8, CMP, 3040-3, 58413-2, PINR, 16775-9 #### [facility] ([id number]) [address], [address] [place] [address] MCH (RBC) [Entitic mass] 31.5 pg Normal 27-34 [facility] Comment on above: Performed By: #### C BCA, 5643-2, 1797-8, CMP, 3040-3, 06329-7, PINR, 02321-2 #### [facility] ([id number]) [address], [address] [place] [address] MCHC (RBC) [Mass/Vol] 34.3 g/dL Normal 32-36 [facility] Comment on above: Performed By: #### C BCA, 5643-2, 1797-8, CMP, 3040-3, 63719-1, PINR, 55219-9 #### [facility] ([id number]) [address], [address] [place] [address] MCV (RBC) [Entitic vol] 92 fL Normal 80-100 P [facility] Comment on above: Performed By: #### C BCA, 5643-2, 1797-8, CMP, 3040-3, 60482-3, PINR, 15612-4 #### [facility] ([id number]) [address], [address] [place] [address] Monocytes (Bld) [#/Vol] 0.6 10*3/uL Normal 0-0.9 [facility] Comment on above: Performed By: #### C BCA, 5643-2, 1797-8, CMP, 3040-3, 40068-9, PINR, 75772-2 #### [facility] ([id number]) [address], [address] [place] [address] Monocytes/100 WBC (Bld) 6.4 % Normal P [facility] Comment on above: Performed By: #### C BCA, 5643-2, 1797-8, CMP, 3040-3, 95108-0, PINR, 21821-4 #### [facility] ([id number]) [address], [address] [place] [address] Neutrophils/100 WBC (Bld) 86.0 % Normal [facility] Comment on above: Performed By: #### C BCA, 5643-2, 8-8, CMP, 3040-3, 27893-7, PINR, 06128-4 #### [facility] ([id number]) [address] [address] Platelet mean volume (Bld) [Entitic vol] 8.8 fL Normal 7-12 [facility] Comment on above: Performed By: #### C BCA, 5643-2, 1797-8, CMP, 3040-3, 83328-3, PINR, 84473-1 #### [facility] ([id number]) [address] [address] Platelets (Bld) [#/Vol] 197 10*3/uL Normal 150-450 [facility] Comment on above: Performed By: #### Kacey BCA, 5643-2, 1797-8, CMP, 3040-3, 96186-1, PINR, 68650-1 #### [facility] ([id number]) [address] [address] RBC COUNT 3.30 X10E12/L Low 4.10-5.70 [facility] Comment on above: Performed By: #### C BCA, 5643-2, 1797-8, CMP, 3040-3, 55620-8, PINR, 97052-0 #### [facility] ([id number]) [address] [address] WBC (Bld) [#/Vol] 10.1 10*3/uL Normal 4.0-11.0 [facility] Comment on above: Performed By: #### C BCA, 5643-2, 1797-8, CMP, 3040-3, 45394-0, PINR, 90733-3 #### [facility] ([id number]) [address] [address] CBC auto differentialon 06-15 Basophils (Bld) [#/Vol] 0.1 10*3/uL [facility] Basophils/100 WBC (Bld) 1.4 % P [facility] Eosinophils (Bld) [#/Vol] 0.1 10*3/uL [facility] Eosinophils/100 WBC (Bld) 0.6 % [facility] Erythrocyte distribution width (RBC) [Ratio] 15.6 % High 11.5 - 15.0 % [facility] Hematocrit (Bld) [Volume fraction] 30.3 % Low 39 - 49 % [facility] Hemoglobin (Bld) [Mass/Vol] 10.4 g/dL Low 13.0 - 17.0 g/dL [facility] Interpretation and review of laboratory results Abnormal [facility] Lymphocytes (Bld) [#/Vol] 0.6 10*3/uL Low [facility] Lymphocytes/100 WBC (Bld) 5.6 % [facility] MCH (RBC) [Entitic mass] 31.5 pg 27 - 34 pg [facility] MCHC (RBC) [Mass/Vol] 34.3 g/dL 32 - 3 6 g/dL [facility] MCV (RBC) [Entitic vol] 92 fL 80 - 100 fL [facility] Monocytes (Bld) [#/Vol] 0.6 10*3/uL [facility] Monocytes/100 WBC (Bld) 6.4 % P [facility] Neutrophils (Bld) [#/Vol] 8.7 10*3/uL High [facility] Neutrophils/100 WBC (Bld) 86 % [facility] Platelet mean volume (Bld) [Entitic vol] 8.8 fL 7 - 12 fL [facility] Platelets (Bld) [#/Vol] 197 10*3/uL [facility] RBC (Bld) [#/Vol] 3.3 10*6/uL Low [facility] WBC corrected for nucl RBC Auto (Bld) [#/Vol] 10.1 [facility] Calcium.ionized (Bld) [Mass/ Vol]on 06-30-2024 [facility] IONIZED CALCIUM 4.7 mg/dL Normal 4.5-5.3 [facility] Comment on above: Performed By: #### C HERNANDEZ, 5643-2, 1798-8, CMP, 3040-3, 63093-1, PINR, 22938-7 #### [facility] ([id number]) [address], [address] [place] [address] Crossmatch RBC:Number of Uni ts: 1on 06-30-2024 BB Type Barcode 6200 [facility] Blood component type [id number] [facility] Crossmatch Compatible [facility] Expiration Date [id number] [facility] Status of unit TRANSFUSED [facility] Unit ABO A [facility] Unit number [id number] [facility] RH Positive [facility] Glucose Glucometer (BldC) [M ass/Vol]on 06-30-2024 Glucose [Mass/Vol] 88 mg/dL 65 - 99 mg/dL [facility] Glucose [Mass/Vol] 88 mg/dL Normal 65-99 [facility] Glucose [Mass/Vol] 78 mg/dL 65 - 99 mg/dL [facility] Glucose [Mass/Vol] 78 mg/dL Normal 65-99 [facility] Glucose [Mass/Vol] 67 mg/dL 65 - 99 mg/dL [facility] Glucose [Mass/Vol] 67 mg/dL Normal 65-99 [facility] Glucose [Mass/Vol] 90 mg/dL Normal 65-99 [facility] Glucose [Mass/Vol] 71 mg/dL 65 - 99 mg/dL [facility] Glucose [Mass/Vol] 71 mg/dL Normal 65-99 [facility] HGBon 06-30-2024 Hematocrit (Bld) [Volume fraction] 29.7 % Low 39-49 [facility] Comment on above: Performed By: #### C HERNANDEZ, 5643-2, 1798-8, CMP, 3040-3, 94735-3, PINR, 53188-1 #### [facility] ([id number]) [address] [place] [address] Hemoglobin (Bld) [Mass/Vol] 10.1 g/dL Low 13.0-17.0 [facility] Comment on above: Performed By: #### C BCA, 5643-2, 8, CMP, 3040-3, 07833-5, PINR, 24613-7 #### [facility] ([id number]) [address], [address] [place] [address] Hematocrit (Bld) [Volume fraction] 29.1 % Low 39-49 [facility] Comment on above: Performed By: #### C BCA, 5643-2, 8, CMP, 3040-3, 32517-2, PINR, 19775-5 #### [facility] ([id number]) [address], [address] [place] [address] Hemoglobin (Bld) [Mass/Vol] 10.0 g/dL Low 13.0-17.0 [facility] Comment on above: Performed By: #### C BCA, 5643-2, 1797-12, CMP, 3040-3, 99343-1, PINR, 19027-6 #### [facility] ([id number]) [address] [place] [address] Hematocrit (Bld) [Volume fraction] 29.9 % Low 39-49 [facility] Comment on above: Performed By: #### C BCA, 5643-2, 8, CMP, 3040-3, 43647-7, PINR, 20949-5 #### [facility] ([id number]) [address] [place] [address] Hemoglobin (Bld) [Mass/Vol] 10.1 g/dL Low 13.0-17.0 [facility] Comment on above: Performed By: #### C BCA, 5643-2, 1798-8, CMP, 3040-3, 16761-1, PINR, 04780-4 #### [facility] ([id number]) [address] [place] [address] Hemoglobin and hematocrit, b loodon 06-30-2024 Hematocrit (Bld) [Volume fraction] 29.7 % Low 39 - 49 % [facility] Hemoglobin (Bld) [Mass/Vol] 10.1 g/dL Low 13.0 - 17.0 g/dL [facility] Interpretation and review of laboratory results Abnormal [facility] Hematocrit (Bld) [Volume fraction] 29.1 % Low 39 - 49 % [facility] Hemoglobin (Bld) [Mass/Vol] 10 g/dL Low 13.0 - 17.0 g/dL [facility] Interpretation and review of laboratory results Abnormal [facility] Hematocrit (Bld) [Volume fraction] 29.9 % Low 39 - 49 % [facility] Hemoglobin (Bld) [Mass/Vol] 10.1 g/dL Low 13.0 - 17.0 g/dL [facility] Interpretation and review of laboratory results Abnormal [facility] Ionized calciumon 06-30-2024 Calcium.ionized (Bld) [Mass/Vol] 4.7 mg/dL 4.5 - 5.3 mg/dL [facility] Ionized magnesiumon 06-30-19 Magnesium Ionized ISE (Bld) [Moles/Vol] 0.53 mmol/L 0.45 - 0.74 mmol/L [facility] Comment on above: NEW REFERENCE RANGE Magnesium Ionized ISE (Bld) [Moles/Vol]on 06-30-2024 [facility] Magnesium [Moles/Vol] 0.53 mmol/L Normal 0.45-0.74 [facility] Comment on above: Result Comment: NEW REFERENCE RANGE Performed By: #### C BCA, 5643-2, 1798-8, CMP, 3040-3, 68131-2, PINR, 95887-8 #### [facility] ([id number]) [address], [address] [place] [address] No Panel Informationon 06-30 [facility] PHOSPHORUSon 06-30-2024 Phosphate [Mass/Vol] 3.5 mg/dL Normal 2.4-4.9 [facility] Comment on above: Performed By: #### C BCA, 5643-2, 1798-8, CMP, 3040-3, 34757-1, PINR, 70518-0 #### [facility] ([id number]) [address] [place] [address] Phosphoruson 06-30-2024 Phosphate [Mass/Vol] 3.5 mg/dL 2.4 - 4 .9 mg/dL [facility] XR CHEST 1 VWon 06-30-2024 XR [...] Shell MD on 06/30/2024 8:17 PM Normal [facility] XR Chest Single viewon 06-30 CLINICAL [...] Frieda Shell MD on 06/30/2024 8:17 PM [facility] Radiology Study observation (narrative) [facility] XR Chest Single viewOrdered By: Frieda Shell on 06-30-2024 [facility] Work Phone: ABO Rh Repeaton 06-29-2024 ABO A [facility] Rh Nom (Bld) Positive [facility] ABO A [facility] Rh Nom (Bld) Positive [facility] AMYLASEon 06-29-2024 Amylase [Catalytic activity/Vol] 14 U/L Low 28-100 [facility] Comment on above: Performed By: #### C BCA, 5643-2, 1798-8, CMP, 3040-3, 49741-3, PINR, [id number] #### [facility] ([id number]) [address] [place] [address] APTTon 06-29-2024 aPTT Coag (PPP) [Time] [address] [facility] Amylaseon 06-29-2024 Amylase [Catalytic activity/Vol] 14 U/L Low 28 - 100 U/L [facility] BASIC METABOLIC PANLon 06-29 Anion gap [Moles/Vol] 8 mmol/L Normal 5-15 [facility] Comment on above: Performed By: #### I 8XCA #### [facility] ([id number]) [address] [place] [address] Calcium [Mass/Vol] 7.6 mg/dL Low 8.5-10.5 [facility] Comment on above: Performed By: #### I 8XCA #### [facility] ([id number]) [address] [place] [address] Chloride [Moles/Vol] 108 mmol/L Normal 98-109 [facility] Comment on above: Performed By: #### I 8XCA #### [facility] ([id number]) [address] [place] [address] CO2 [Moles/Vol] 23 mmol/L Normal 22-32 [facility] Comment on above: Performed By: #### I 8XCA #### [facility] ([id number]) [address] [place] [address] Creatinine [Mass/Vol] 1.57 mg/dL High 0.60-1.30 [facility] Comment on above: Result Comment: METH OD TRACEABLE TO IDMS STANDARD Performed By: #### I 8XCA #### [facility] ([id number]) [address] [place] [address] GFR/1.73 sq M.predicted among non-blacks MDRD (S/P/Bld) [Vol rate/Area] 45 mL/min/{1.73_m2} Low >59 Pr [facility] Comment on above: Result Comment: Reported eGFR is based on the CKD-EPI 2020 equation that does not use a race coefficient. Performed By: #### I 8XCA #### [facility] ([id number]) [address] [place] [address] Glucose [Mass/Vol] 111 mg/dL High 65-99 [facility] Comment on above: Performed By: #### I 8XCA #### [facility] ([id number]) [address] [place] [address] Potassium [Moles/Vol] 3.7 mmol/L Normal 3.5-5.0 [facility] Comment on above: Performed By: #### I 8XCA #### [facility] ([id number]) [address] [place] [address] Sodium [Moles/Vol] 139 mmol/L Normal 134-146 [facility] Comment on above: Performed By: #### I 8XCA #### [facility] ([id number]) [address] [place] [address] Urea nitrogen [Mass/Vol] 17 mg/dL Normal 5-27 [facility] Comment on above: Performed By: #### I 8XCA #### [facility] ([id number]) [address] [place] [address] Basic Metabolic Panelon 06-15 Anion gap [Moles/Vol] 8 mmol/L 5 - 15 mmol/L [facility] Calcium [Mass/Vol] 7.6 mg/dL Low 8.5 - 10. 5 mg/dL [facility] Chloride [Moles/Vol] 108 mmol/L 98 - 10 9 mmol/L [facility] CO2 [Moles/Vol] 23 mmol/L 22 - 32 mmol/L [facility] Creatinine [Mass/Vol] 1.57 mg/dL High 0.60 - 1.30 mg/dL [facility] Comment on above: METHOD TRACEABLE TO IDND STANDARD eGFR (CKD-EPI)non-race dependent 45 Low - PINF [facility] Comment on above: Reported eGFR is based on the CKD-EPI 2020 equation that does not use a race coefficient. Glucose [Mass/Vol] 111 mg/dL High 65 - 99 mg/dL [facility] Interpretation and review of laboratory results Abnormal [facility] Potassium [Moles/Vol] 3.7 mmol/L 3.5 - 5.0 mmol/L [facility] Sodium [Moles/Vol] 139 mmol/L 134 - 146 mmol/L [facility] Urea nitrogen [Mass/Vol] 17 mg/dL 5 - 27 mg/dL [facility] CBC AND AUTO DIFFon 06-29-19 ABSOLUTE BASOPHIL 0.1 X10E9/L Normal 0.0-0.2 [facility] Comment on above: Performed By: #### I 8XCA #### [facility] ([id number]) [address] [place] [address] ABSOLUTE NEUTROPHIL 10.1 X10E9/L High 1.5-6.6 [facility] Comment on above: Performed By: #### I 8XCA #### [facility] ([id number]) [address] [place] [address] Basophils/100 WBC (Bld) 0.4 % Normal P [facility] Comment on above: Performed By: #### I 8XCA #### [facility] ([id number]) [address] [place] [address] Eosinophils (Bld) [#/Vol] 0.0 10*3/uL Normal 0.0-0.4 [facility] Comment on above: Performed By: #### I 8XCA #### [facility] ([id number]) [address] [place] [address] Eosinophils/100 WBC (Bld) 0.1 % Normal [facility] Comment on above: Performed By: #### I 8XCA #### [facility] ([id number]) [address] [place] [address] Erythrocyte distribution width (RBC) [Ratio] 14.7 % Normal 11.5-15.0 [facility] Comment on above: Performed By: #### I 8XCA #### [facility] ([id number]) [address] [place] [address] Hematocrit (Bld) [Volume fraction] 23.6 % Low 39-49 [facility] Comment on above: Performed By: #### I 8XCA #### [facility] ([id number]) [address] [place] [address] Hemoglobin (Bld) [Mass/Vol] 8.1 g/dL Low 13.0-17.0 [facility] Comment on above: Performed By: #### I 8XCA #### [facility] ([id number]) [address] [place] [address] Lymphocytes (Bld) [#/Vol] 0.6 10*3/uL Low 1.0-3.5 [facility] Comment on above: Performed By: #### I 8XCA #### [facility] ([id number]) [address] [place] [address] Lymphocytes/100 WBC (Bld) 4.8 % Normal [facility] Comment on above: Performed By: #### I 8XCA #### [facility] ([id number]) [address] [place] [address] MCH (RBC) [Entitic mass] 31.7 pg Normal 27-34 [facility] Comment on above: Performed By: #### I 8XCA #### [facility] ([id number]) [address] [place] [address] MCHC (RBC) [Mass/Vol] 34.1 g/dL Normal 32-36 [facility] Comment on above: Performed By: #### I 8XCA #### [facility] ([id number]) [address] [place] [address] MCV (RBC) [Entitic vol] 93 fL Normal 80-100 P [facility] Comment on above: Performed By: #### I 8XCA #### [facility] ([id number]) [address] [place] [address] Monocytes (Bld) [#/Vol] 1.0 10*3/uL High 0-0.9 [facility] Comment on above: Performed By: #### I 8XCA #### [facility] ([id number]) [address] [place] [address] Monocytes/100 WBC (Bld) 8.2 % Normal [facility] Comment on above: Performed By: #### I 8XCA #### [facility] ([id number]) [address] [place] [address] Neutrophils/100 WBC (Bld) 86.5 % Normal [facility] Comment on above: Performed By: #### I 8XCA #### [facility] ([id number]) [address] [place] [address] Platelet mean volume (Bld) [Entitic vol] 9.0 fL Normal 7-12 [facility] Comment on above: Performed By: #### I 8XCA #### [facility] ([id number]) [address] [place] [address] Platelets (Bld) [#/Vol] 193 10*3/uL Normal 150-450 [facility] Comment on above: Performed By: #### I 8XCA #### [facility] ([id number]) [address] [place] [address] RBC COUNT 2.54 X10E12/L Low 4.10-5.70 [facility] Comment on above: Performed By: #### I 8XCA #### [facility] ([id number]) [address] [place] [address] WBC (Bld) [#/Vol] 11.7 10*3/uL High 4.0-11.0 [facility] Comment on above: Performed By: #### I 8XCA #### [facility] ([id number]) [address] [place] [address] ABSOLUTE BASOPHIL 0.0 X10E9/L Normal 0.0-0.2 [facility] Comment on above: Performed By: #### C BCA, 5643-2, 1798-8, CMP, 3040-3, 40508-4, PINR, 38250-6 #### [facility] ([id number]) [address] [place] [address] ABSOLUTE NEUTROPHIL 9.1 X10E9/L High 1.5-6.6 [facility] Comment on above: Performed By: #### C BCA, 5643-2, 1797-8, CMP, 3040-3, 98682-3, PINR, 97791-2 #### [facility] ([id number]) [address], [address] [place] [address] Basophils/100 WBC (Bld) 0.1 % Normal P [facility] Comment on above: Performed By: #### C BCA, 5643-2, 1797-8, CMP, 3040-3, 50843-9, PINR, 20275-4 #### [facility] ([id number]) [address], [address] [place] [address] Eosinophils (Bld) [#/Vol] 0.0 10*3/uL Normal 0.0-0.4 [facility] Comment on above: Performed By: #### C BCA, 5643-2, 1797-8, CMP, 3040-3, 73055-1, PINR, 77943-5 #### [facility] ([id number]) [address], [address] [place] [address] Eosinophils/100 WBC (Bld) 0.0 % Normal [facility] Comment on above: Performed By: #### C BCA, 5643-2, 1797-8, CMP, 3040-3, 46141-2, PINR, 01340-6 #### [facility] ([id number]) [address], [address] [place] [address] Erythrocyte distribution width (RBC) [Ratio] 14.5 % Normal 11.5-15.0 [facility] Comment on above: Performed By: #### C BCA, 5643-2, 1797-8, CMP, 3040-3, 98613-3, PINR, 85399-0 #### [facility] ([id number]) [address], [address] [place] [address] Hematocrit (Bld) [Volume fraction] 20.6 % Low 39-49 [facility] Comment on above: Performed By: #### C BCA, 5643-2, 1797-8, CMP, 3040-3, 96692-4, PINR, 32217-7 #### [facility] ([id number]) [address], [address] [place] [address] Hemoglobin (Bld) [Mass/Vol] 6.9 g/dL Critically low 13.0-17.0 [facility] Comment on above: Performed By: #### C BCA, 5643-2, 1797-8, CMP, 3040-3, 71405-8, PINR, 07548-2 #### [facility] ([id number]) [address], [facility] [address] [place] [address] Lymphocytes (Bld) [#/Vol] 0.6 10*3/uL Low 1.0-3.5 [facility] Comment on above: Performed By: #### C BCA, 5643-2, 1797-8, CMP, 3040-3, 11919-3, PINR, 77568-6 #### [facility] ([id number]) [address], [address] [place] [address] Lymphocytes/100 WBC (Bld) 5.3 % Normal [facility] Comment on above: Performed By: #### C BCA, 5643-2, 1797-8, CMP, 3040-3, 79618-2, PINR, 34321-8 #### [facility] ([id number]) [address], [address] [place] [address] MCH (RBC) [Entitic mass] 31.4 pg Normal 27-34 [facility] Comment on above: Performed By: #### C BCA, 5643-2, 1797-8, CMP, 3040-3, 25742-8, PINR, 95406-5 #### [facility] ([id number]) [address], [address] [place] [address] MCHC (RBC) [Mass/Vol] 33.4 g/dL Normal 32-36 [facility] Comment on above: Performed By: #### C BCA, 5643-2, 8-8, CMP, 3040-3, 17402-6, PINR, 90187-6 #### [facility] ([id number]) [address], [address] [place] [address] MCV (RBC) [Entitic vol] 94 fL Normal 80-100 P [facility] Comment on above: Performed By: #### C BCA, 5643-2, 1797-8, CMP, 3040-3, 20036-4, PINR, 95230-6 #### [facility] ([id number]) [address], [facility] [address] [place] [address] Monocytes (Bld) [#/Vol] 0.9 10*3/uL Normal 0-0.9 [facility] Comment on above: Performed By: #### C BCA, 5643-2, 1797-8, CMP, 3040-3, 68500-1, PINR, 35973-4 #### [facility] ([id number]) [address], [facility] [address] [place] [address] Monocytes/100 WBC (Bld) 8.6 % Normal [facility] Comment on above: Performed By: #### C BCA, 5643-2, 1797-8, CMP, 3040-3, 16825-5, PINR, 38557-0 #### [facility] ([id number]) [address], [address] [place] [address] Neutrophils/100 WBC (Bld) 86.0 % Normal [facility] Comment on above: Performed By: #### C BCA, 5643-2, 1797-8, CMP, 3040-3, 28165-0, PINR, 67814-3 #### [facility] ([id number]) [address], [address] [address] Platelet mean volume (Bld) [Entitic vol] 9.3 fL Normal 7-12 [facility] Comment on above: Performed By: #### C BCA, 5643-2, 1797-8, CMP, 3040-3, 56441-5, PINR, 20149-1 #### [facility] ([id number]) [address] [address] Platelets (Bld) [#/Vol] 186 10*3/uL Normal 150-450 [facility] Comment on above: Performed By: #### C BCA, 5643-2, 1797-8, CMP, 3040-3, 11580-1, PINR, 96211-8 #### [facility] ([id number]) [address] [address] RBC COUNT 2.19 X10E12/L Low 4.10-5.70 [facility] Comment on above: Performed By: #### C BCA, 5643-2, 8, CMP, 3040-3, 95711-5, PINR, 64615-5 #### [facility] ([id number]) [address] [address] WBC (Bld) [#/Vol] 10.6 10*3/uL Normal 4.0-11.0 [facility] Comment on above: Performed By: #### Kacey BCA, 5643-2, 8, CMP, 3040-3, 59708-8, PINR, 75623-4 #### [facility] ([id number]) [address] [address] CBC auto differentialon 06-15 Basophils (Bld) [#/Vol] 0.1 10*3/uL [facility] Basophils/100 WBC (Bld) 0.4 % P [facility] Eosinophils (Bld) [#/Vol] 0 10*3/uL [facility] Eosinophils/100 WBC (Bld) 0.1 % [facility] Erythrocyte distribution width (RBC) [Ratio] 14.7 % 11.5 - 15.0 % [facility] Hematocrit (Bld) [Volume fraction] 23.6 % Low 39 - 49 % [facility] Hemoglobin (Bld) [Mass/Vol] 8.1 g/dL Low 13.0 - 17.0 g/dL [facility] Interpretation and review of laboratory results Abnormal [facility] Lymphocytes (Bld) [#/Vol] 0.6 10*3/uL Low [facility] Lymphocytes/100 WBC (Bld) 4.8 % [facility] MCH (RBC) [Entitic mass] 31.7 pg 27 - 34 [facility] MCHC (RBC) [Mass/Vol] 34.1 g/dL 32 - 3 6 g/dL [facility] MCV (RBC) [Entitic vol] 93 fL 80 - 100 fL [facility] Monocytes (Bld) [#/Vol] 1 10*3/uL High [facility] Monocytes/100 WBC (Bld) 8.2 % [facility] Neutrophils (Bld) [#/Vol] 10.1 10*3/uL High [facility] Neutrophils/100 WBC (Bld) 86.5 % [facility] Platelet mean volume (Bld) [Entitic vol] 9 fL 7 - 12 fL [facility] Platelets (Bld) [#/Vol] 193 10*3/uL [facility] RBC (Bld) [#/Vol] 2.54 10*6/uL Low [facility] WBC corrected for nucl RBC Auto (Bld) [#/Vol] 11.7 High [facility] Basophils (Bld) [#/Vol] 0 10*3/uL [facility] Basophils/100 WBC (Bld) 0.1 % [facility] Eosinophils (Bld) [#/Vol] 0 10*3/uL [facility] Eosinophils/100 WBC (Bld) 0 % [facility] Erythrocyte distribution width (RBC) [Ratio] 14.5 % 11.5 - 15.0 % [facility] Hematocrit (Bld) [Volume fraction] 20.6 % Low 39 - 49 % [facility] Hemoglobin (Bld) [Mass/Vol] 6.9 g/dL Critically low 13.0 - 17.0 g/dL [facility] Interpretation and review of laboratory results Abnormal [facility] Lymphocytes (Bld) [#/Vol] 0.6 10*3/uL Low [facility] Lymphocytes/100 WBC (Bld) 5.3 % [facility] MCH (RBC) [Entitic mass] 31.4 pg 27 - 34 pg [facility] MCHC (RBC) [Mass/Vol] 33.4 g/dL 32 - 3 6 g/dL [facility] MCV (RBC) [Entitic vol] 94 fL 80 - 100 fL [facility] Monocytes (Bld) [#/Vol] 0.9 10*3/uL [facility] Monocytes/100 WBC (Bld) 8.6 % [facility] Neutrophils (Bld) [#/Vol] 9.1 10*3/uL High [facility] Neutrophils/100 WBC (Bld) 86 % [facility] Platelet mean volume (Bld) [Entitic vol] 9.3 fL 7 - 12 fL [facility] Platelets (Bld) [#/Vol] 186 10*3/uL [facility] RBC (Bld) [#/Vol] 2.19 10*6/uL Low [facility] WBC corrected for nucl RBC Auto (Bld) [#/Vol] 10.6 [facility] COMPREHENSIVE METABOLIC PANE Larry 06-29-2024 Albumin [Mass/Vol] 2.4 g/dL Low 3.2-5.3 [facility] Comment on above: Performed By: #### C BCA, 5643-2, 1798-8, CMP, 3040-3, 11196-3, PINR, 38802-0 #### [facility] ([id number]) [address], [address] [place] [address] ALP [Catalytic activity/Vol] 63 U/L Normal 39-130 [facility] Comment on above: Performed By: #### C BCA, 5643-2, 1797-8, CMP, 3040-3, 16768-9, PINR, 67089-6 #### [facility] ([id number]) [address], [address] [place] [address] ALT [Catalytic activity/Vol] 9 U/L Normal 0-40 [facility] Comment on above: Performed By: #### C BCA, 5643-2, 1797-8, CMP, 3040-3, 00518-9, PINR, 89646-1 #### [facility] ([id number]) [address], [address] [place] [address] Anion gap [Moles/Vol] 8 mmol/L Normal 5-15 [facility] Comment on above: Performed By: #### C BCA, 5643-2, 1797-8, CMP, 3040-3, 74309-5, PINR, 60746-7 #### [facility] ([id number]) [address], [address] [place] [address] AST [Catalytic activity/Vol] 15 U/L Normal 0-41 [facility] Comment on above: Performed By: #### C BCA, 5643-2, 1797-8, CMP, 3040-3, 51090-4, PINR, 53473-8 #### [facility] ([id number]) [address], [address] [place] [address] Bilirubin [Mass/Vol] 0.8 mg/dL Normal 0.3-1.2 [facility] Comment on above: Performed By: #### C BCA, 5643-2, 1797-8, CMP, 3040-3, 51713-4, PINR, 75598-1 #### [facility] ([id number]) [address], [address] [place] [address] Calcium [Mass/Vol] 6.9 mg/dL Critically low 8.5-10.5 [facility] Comment on above: Performed By: #### C BCA, 5643-2, 1797-8, CMP, 3040-3, 30451-0, PINR, 38918-5 #### [facility] ([id number]) [address], [address] [place] [address] Chloride [Moles/Vol] 111 mmol/L High 98-109 [facility] Comment on above: Performed By: #### C BCA, 5643-2, 1797-8, CMP, 3040-3, 03871-5, PINR, 05968-1 #### [facility] ([id number]) [address], [address] [place] [address] CO2 [Moles/Vol] 21 mmol/L Low 22-32 [facility] Comment on above: Performed By: #### C BCA, 5643-2, 1797-8, CMP, 3040-3, 94783-0, PINR, 43687-2 #### [facility] ([id number]) [address], [address] [place] [address] Creatinine [Mass/Vol] 1.46 mg/dL High 0.60-1.30 [facility] Comment on above: Result Comment: METH OD TRACEABLE TO IDMS STANDARD Performed By: #### C BCA, 5643-2, 8, CMP, 3040-3, 09572-4, PINR, 83064-6 #### [facility] ([id number]) [address], [address] [place] [address] GFR/1.73 sq M.predicted among non-blacks MDRD (S/P/Bld) [Vol rate/Area] 49 mL/min/{1.73_m2} Low >59 Pr [facility] Comment on above: Result Comment: Reported eGFR is based on the CKD-EPI 2020 equation that does not use a race coefficient. Performed By: #### C BCA, 5643-2, 1797-8, CMP, 3040-3, 72337-8, PINR, 00528-9 #### [facility] ([id number]) [address], [address] [place] [address] Glucose [Mass/Vol] 105 mg/dL High 65-99 [facility] Comment on above: Performed By: #### C BCA, 5643-2, 1797-8, CMP, 3040-3, 16121-9, PINR, 69263-0 #### [facility] ([id number]) [address], [address] [place] [address] Potassium [Moles/Vol] 3.6 mmol/L Normal 3.5-5.0 [facility] Comment on above: Performed By: #### C BCA, 5643-2, 8, CMP, 3040-3, 87288-5, PINR, 53113-0 #### [facility] ([id number]) [address], [address] [place] [address] Protein [Mass/Vol] 4.5 g/dL Low 6.0-8.0 [facility] Comment on above: Performed By: #### C BCA, 5643-2, 8, CMP, 3040-3, 80274-7, PINR, 44105-2 #### [facility] ([id number]) [address], [address] [place] [address] Sodium [Moles/Vol] 140 mmol/L Normal 134-146 [facility] Comment on above: Performed By: #### C BCA, 5643-2, 1797-8, CMP, 3040-3, 40074-8, PINR, 57937-4 #### [facility] ([id number]) [address], [address] [place] [address] Urea nitrogen [Mass/Vol] 16 mg/dL Normal 5-27 [facility] Comment on above: Performed By: #### C BCA, 5643-2, 1797-8, CMP, 3040-3, 08970-9, PINR, 80089-3 #### [facility] ([id number]) [address] [place] [address] Calcium.ionized (Bld) [Mass/ Vol]on 06-29-2024 IONIZED CALCIUM 4.5 mg/dL Normal 4.5-5.3 [facility] Comment on above: Performed By: #### I 8XCA #### [facility] ([id number]) [address] [place] [address] Comprehensive metabolic pane larry 06-29-2024 Albumin [Mass/Vol] 2.4 g/dL Low 3.2 - 5.3 g/dL [facility] ALP [Catalytic activity/Vol] 63 U/L 39 - 130 U/L [facility] ALT No additional P-5'-P [Catalytic activity/Vol] 9 U/L 0 - 40 U/L [facility] Anion gap [Moles/Vol] 8 mmol/L 5 - 15 mmol/L [facility] AST [Catalytic activity/Vol] 15 U/L 0 - 41 U/L [facility] Bilirubin [Mass/Vol] 0.8 mg/dL 0.3 - 1 .2 mg/dL [facility] Calcium [Mass/Vol] 6.9 mg/dL Critically low 8.5 - 1 0.5 mg/dL [facility] Chloride [Moles/Vol] 111 mmol/L High 98 - 10 9 mmol/L [facility] CO2 [Moles/Vol] 21 mmol/L Low 22 - 32 mmol/L [facility] Creatinine [Mass/Vol] 1.46 mg/dL High 0.60 - 1.30 mg/dL [facility] Comment on above: METHOD TRACEABLE TO IDND STANDARD eGFR (CKD-EPI)non-race dependent 49 Low - PINF [facility] Comment on above: Reported eGFR is based on the CKD-EPI 2020 equation that does not use a race coefficient. Glucose [Mass/Vol] 105 mg/dL High 65 - 99 mg/dL [facility] Interpretation and review of laboratory results Abnormal [facility] Potassium [Moles/Vol] 3.6 mmol/L 3.5 - 5.0 mmol/L [facility] Protein [Mass/Vol] 4.5 g/dL Low 6.0 - 8.0 g/dL [facility] Sodium [Moles/Vol] 140 mmol/L 134 - 146 mmol/L [facility] Urea nitrogen [Mass/Vol] 16 mg/dL 5 - 27 mg/dL [facility] Crossmatch RBC:on 06-29-2024 BB Type Barcode 6200 [facility] Blood component type [id number] [facility] Expiration Date [facility] Status of unit [facility]SFUSED [facility] Unit ABO A [facility] Unit number [id number] [facility] Unit RH Positive [facility] BB Type Barcode 6200 [facility] Blood component type [id number] [facility] Expiration Date [facility] Status of unit [facility]UED [facility] Unit ABO A [facility] Unit number [id number] [facility] Unit RH Positive [facility] BB Type Barcode 6200 [facility] Blood component type [id number] [facility] Crossmatch Compatible [facility] Expiration Date [facility] Status of unit SELECTED [facility] Unit ABO A [facility] Unit number [id number] [facility] Unit RH Positive [facility] Expiration Date [id number] [facility] Unit number [id number] [facility] Unit number [id number] [facility] Unit number [id number] [facility] BB Type Barcode 5100 [facility] Blood component type [id number] [facility] Expiration Date [id number] [facility] Status of unit ISSUED [facility] Unit [facility]BO O [facility] Unit number [id number] [facility] Unit RH Positive [facility] Unit number [id number] [facility] Unit number [id number] [facility] BB Type Barcode 5100 [facility] Blood component type [id number] [facility] Crossmatch Compatible [facility] Expiration Date [id number] [facility] Status of unit SELECTED [facility] Unit ABO O [facility] Unit number [id number] [facility] Unit RH Positive [facility] BB Type Barcode 5100 [facility] Blood component type [id number] [facility] Crossmatch Compatible [facility] Expiration Date [id number] [facility] Status of unit SELECTED [facility] Unit ABO O [facility] Unit [facility] [id number] [facility] Unit RH Positive [facility] BB Type Barcode 5100 [facility] Blood component type [id number] [facility] Crossmatch Compatible [facility] Expiration Date [id number] [facility] Status of unit SELECTED [facility] Unit ABO O [facility] Unit number [id number] [facility] Unit RH Positive [facility] Crossmatch RBC:Number of Uni ts: 1on 06-29-2024 BB Type Barcode 6200 [facility] Blood component type [id number] [facility] Crossmatch Compatible [facility] Expiration Date [id number] [facility] Status of unit TRANSFUSED [facility] Unit ABO A [facility] Unit number [id number] [facility] Unit RH Positive [facility] BB Type Barcode 5100 [facility] Blood component type [id number] [facility] Crossmatch Compatible [facility] Expiration Date [phone] [facility] Status of unit TRANSFUSED [facility] Unit ABO O [facility] Unit number [id number] [facility] Unit RH Positive [facility] DRUG SCREEN, URINEon 025 AMPHETAMINE/METHAMP Negative Normal NEG [facility] Comment on above: Result Comment: AMPH /METH screening cut off = 1000 ng/mL Performed By: #### I 8XCA #### [facility] ([address] [place] [address]) [address] [place] [address] BARBITURATES Negative Normal NEG [facility] Comment on above: Result Comment: Lilia iturates screening cut off value = 200 ng/mL Performed By: #### I 8XCA #### [facility] ([address] [place] [address]) [address] [place] [address] BENZODIAZEPINES Negative Normal NEG [facility] Comment on above: Result Comment: Danish odiazepines screening cut off value = 200 ng/mL Performed By: #### I 8XCA #### [facility] ([address] [place] [address]) [address] [place] [address] CANNABINOIDS Negative Normal NEG [facility] Comment on above: Result Comment: Dora abinoids/THC screening cut off value = 50 ng/mL Performed By: #### I 8XCA #### [facility] ([address] [place] [address]) [address] [place] [address] COCAINE METABOLITE Negative Normal NEG [facility] Comment on above: Result Comment: Coca ine screening cut off value = 300 ng/mL Performed By: #### I 8XCA #### [facility] ([address] [place] [address]) [address] [place] [address] ECSTASY Negative Normal NEG [facility] Comment on above: Result Comment: Ecst asy screening cut off value = 500 ng/mL This report is intended for use in clinical monitoring or management of patients. Performed By: #### I 8XCA #### [facility] ([id number]) [address] [place] [address] METHADONE Negative Normal NEG [facility] Comment on above: Result Comment: Meth adone screening cut off value = 300 ng/mL. Performed By: #### I 8XCA #### [facility] ([id number]) [address] [place] [address] OPIATES Negative Normal NEG [facility] Comment on above: Result Comment: Opia vasiliy screening cut off value = 300 ng/mL NOTE: This test is used for the detection of codeine, hydrocodone (>1000 ng/mL), morphine and hydromorphone (>900 ng/mL) in urine. Performed By: #### I 8XCA #### [facility] ([id number]) [address] [place] [address] [facility] Comment on above: Result Comment: Oxyc odone screening cut off value = 300 ng/mL NOTE: This test is used for the detection of oxycodone and oxymorphone in urine. Performed By: #### I 8XCA #### [facility] ([id number]) [address] [place] [address] [address] [facility] Comment on above: Result Comment: Phen cyclidine screening cut off value = 25 ng/mL Performed By: #### I 8XCA #### [facility] ([id number]) [address] [place] [address] Drug Screen, Urineon 025 Amphetamines Screen method >1000 ng/mL Ql (U) Negative Negative^N [facility] Comment on above: AMPH/METH screening cut off = 1000 ng/mL Barbiturates Screen Ql (U) Negative N egative^N [facility] Comment on above: Barbiturates screeni ng cut off value = 200 ng/mL Benzodiazepines Ql (U) Negative Negat gabriela^N [facility] Comment on above: Benzodiazepines scre ening cut off value = 200 ng/mL Cocaine Ql (U) Negative Negative^N egative [facility] Comment on above: Cocaine screening cu t off value = 300 ng/mL Methadone Screen Ql (U) Negative Nega tive^N [facility] Comment on above: Methadone screening cut off value = 300 ng/mL. Methylenedioxymethamphetam ine Screen Ql (U) Negative Negative^N [facility] Comment on above: Ecstasy screening cu t off value = 500 ng/mL This report is intended for use in clinical monitoring or management of patients. Opiates Screen Ql (U) Negative Negati ve^N [facility] Comment on above: Opiates screening cu t off value = 300 ng/mL NOTE: This test is used for the detection of codeine, hydrocodone (>1000 ng/mL), morphine and hydromorphone (>900 ng/mL) in urine. oxyCODONE Ql (U) Negative Negative^N [facility] Comment on above: Oxycodone screening cut off value = 300 ng/mL NOTE: This test is used for the detection of oxycodone and oxymorphone in urine. Phencyclidine Screen method >25 ng/mL Ql (U) Negative Negative^N [facility] Comment on above: Phencyclidine screen ing cut off value = 25 ng/mL Tetrahydrocannabinol Screen method >50 ng/mL Ql (U) Negative Negative^N [facility] Comment on above: Cannabinoids/THC scr eening cut off value = 50 ng/mL [facility] ETHANOLon 06-29-2024 Ethanol [Mass/Vol] mg/dL Normal 0.00-0.08 [facility] Comment on above: Result Comment: This report is intended for use in clinical monitoring or management of patients. Performed By: #### C BCA, 5643-2, 1798-8, CMP, 3040-3, 84486-4, PINR, [id number] #### [facility] ([id number]) [address] [place] [address], [address] [place] [address] Ethanolon 06-29-2024 Ethanol [Mass/Vol] g/dL 0.00 - 0.08 g/dL [facility] Comment on above: This report is intended for use in clinical monitoring or management of patients. Fibrinogenon 06-29-2024 Fibrinogen Coagulation.derived (PPP) [Mass/Vol] 501 mg/dL High 190 - 480 mg/dL [facility] Fibrinogen Coagulation.deriv ed (PPP) [Mass/Vol]on 06-29-2024 FIBRINOGEN 501 mg/dL High 190-480 [facility] Comment on above: Performed By: #### C HERNANDEZ, 5643-2, 1797-8, CMP, 3040-3, 40240-4, PINR, [id number] #### [facility] ([id number]) [address], [address] [place] [address] Glucose Glucometer (BldC) [M ass/Vol]on 06-29-2024 Glucose [Mass/Vol] 75 mg/dL 65 - 99 mg/dL [facility] Glucose [Mass/Vol] 75 mg/dL Normal 65-99 [facility] Glucose [Mass/Vol] 78 mg/dL 65 - 99 mg/dL [facility] Glucose [Mass/Vol] 78 mg/dL Normal 65-99 [facility] Glucose [Mass/Vol] 108 mg/dL High 65 - 99 mg/dL [facility] Interpretation and review of laboratory results Abnormal [facility] Glucose [Mass/Vol] 108 mg/dL High 65-99 [facility] HGBon 06-29-2024 Hematocrit (Bld) [Volume fraction] 26.1 % Low 39-49 [facility] Comment on above: Performed By: #### C HERNANDEZ, 5643-2, 1797-8, CMP, 3040-3, 86782-0, PINR, 45932-1 #### [facility] ([id number]) [address], [address] [place] [address] Hemoglobin (Bld) [Mass/Vol] 8.8 g/dL Low 13.0-17.0 [facility] Comment on above: Performed By: #### Kacey NG, 5643-2, 1797-8, CMP, 3040-3, 69035-8, PINR, 48738-0 #### [facility] ([id number]) [address], [address] [place] [address] Hematocrit (Bld) [Volume fraction] 26.8 % Low 39-49 [facility] Comment on above: Performed By: #### C BCA, 5643-2, 8-8, CMP, 3040-3, 71771-2, PINR, 52790-2 #### [facility] ([id number]) [address], [address] [place] [address] Hemoglobin (Bld) [Mass/Vol] 9.4 g/dL Low 13.0-17.0 [facility] Comment on above: Performed By: #### C BCA, 5643-2, 1797-8, CMP, 3040-3, 78136-5, PINR, [id number] #### [facility] ([id number]) [address], [address] [place] [address] Hematocrit (Bld) [Volume fraction] 24.1 % Low 39-49 [facility] Comment on above: Performed By: #### C BCA, 5643-2, 1797-8, CMP, 3040-3, 68617-2, PINR, 35406-1 #### [facility] ([id number]) [address], [address] [place] [address] Hemoglobin (Bld) [Mass/Vol] 7.9 g/dL Low 13.0-17.0 [facility] Comment on above: Performed By: #### C BCA, 5643-2, 8-8, CMP, 3040-3, 49111-5, PINR, 29258-5 #### [facility] ([id number]) [address], [address] [place] [address] HGB A1C (GLYCO-HGB)on 2024 Glucose [Mass/Vol] 114 mg/dL Normal [facility] Comment on above: Performed By: #### C BCA, 5643-2, 1798-8, [facility], 3040-3, 95860-3, PINR, 23067-2 #### [facility] ([id number]) [address] [address], [address] [place] [address] HbA1c (Bld) [Mass fraction] 5.6 % Normal 4.4-5.6 [facility] Comment on above: Result Comment: NOTE ADA Guidelines Result HgbA1c Normal : less than 5.7 % Prediabetes : 5.7 % to 6.4 % Diabetes : > 6.4 % Use with caution in patients with abnormal hemoglobin variants as the half-life of red blood cells and in vivo glycation rates are affected. Performed By: #### C BCA, 5643-2, 1798-8, [facility], 3040-3, 86156-9, PINR, 28407-4 #### [facility] ([id number]) [address] [facility] [address], [address] [place] [address] Hemoglobin A1con 06-29-2024 Average glucose Estimated from glycated hemoglobin (Bld) [Mass/Vol] 114 mg/dL [facility] HbA1c (Bld) [Mass fraction] 5.6 % 4.4 - 5.6 % [facility] Comment on above: NOTE ADA Guidelines Result HgbA1c Normal : less than 5.7 % Prediabetes : 5.7 % to 6.4 % Diabetes : > 6.4 % Use with caution in patients with abnormal hemoglobin variants as the half-life of red blood cells and in vivo glycation rates are affected. [facility] Hemoglobin and hematocrit, b loodon 06-29-2024 Hematocrit (Bld) [Volume fraction] 26.1 % Low 39 - 49 % [facility] Hemoglobin (Bld) [Mass/Vol] 8.8 g/dL Low 13.0 - 17.0 g/dL [facility] Interpretation and review of laboratory results Abnormal [facility] Hematocrit (Bld) [Volume fraction] 26.8 % Low 39 - 49 % [facility] Hemoglobin (Bld) [Mass/Vol] 9.4 g/dL Low 13.0 - 17.0 g/dL [facility] Interpretation and review of laboratory results Abnormal [facility] Hematocrit (Bld) [Volume fraction] 24.1 % Low 39 - 49 % [facility] Hemoglobin (Bld) [Mass/Vol] 7.9 g/dL Low 13.0 - 17.0 g/dL [facility] Interpretation and review of laboratory results Abnormal [facility] Ionized calciumon 06-29-2024 Calcium.ionized (Bld) [Mass/Vol] 4.5 mg/dL 4.5 - 5.3 mg/dL [facility] Ionized magnesiumon 06-29-19 25 Magnesium Ionized ISE (Bld) [Moles/Vol] 0.52 mmol/L 0.45 - 0.74 mmol/L [facility] Comment on above: NEW REFERENCE RANGE LIPASEon 06-29-2024 Lipase [Catalytic activity/Vol] 8 U/L Low 11-82 [facility] Comment on above: Performed By: #### C BCA, 5643-2, 1798-8, CMP, 3040-3, 29329-2, PINR, 97864-4 #### [facility] ([id number]) [address] [place] [address] Lactate (P rosanne) [Moles/Vol]o n 06-29-2024 [facility] LACTATE W/REFLEX 0.7 mmol/L Normal 0.4-2.0 [facility] Comment on above: Result Comment: Result did not trigger repeat Lactate, re-order if needed. Performed By: #### I 8XCA #### [facility] ([id number]) [address] [place] [address] Lactate w/ Reflexon 06-29-19 25 Lactate (P rosanne) [Moles/Vol] 0.7 mmol/L 0.4 - 2.0 mmol/L [facility] Comment on above: Result did not trigger repeat Lactate, re-order if needed. Lipaseon 06-29-2024 Lipase [Catalytic activity/Vol] 8 U/L Low 11 - 82 U/L [facility] Magnesium Ionized ISE (Bld) [Moles/Vol]on 06-29-2024 Magnesium [Moles/Vol] 0.52 mmol/L Normal 0.45-0.74 [facility] Comment on above: Result Comment: NEW REFERENCE RANGE Performed By: #### I 8XCA #### [facility] ([id number]) [address] [place] [address] Natriuretic peptide B [Mass/ Vol]on 06-29-2024 Interpretation and review of laboratory results Abnormal [facility] Natriuretic peptide B (Bld) [Mass/Vol] 224 pg/mL High NINF - 100.0 pg/mL [facility] Natriuretic peptide B (Bld) [Mass/Vol] 224 pg/mL High <100.0 [facility] Comment on above: Performed By: #### I 8XCA #### [facility] ([id number]) [address] [place] [address] No Panel Informationon 06-29 [facility] BB Type Barcode 5100 [facility] Blood component type [id number] [facility] Expiration Date [facility] Status of unit /RELEASED [facility] Unit ABO O [facility] Unit RH Positive [facility] BB Type Barcode 5100 [facility] Blood component type [id number] [facility] Expiration Date [facility] Status of unit ISSUED [facility] Unit ABO O [facility] Unit RH Positive [facility] Interpretation and review of laboratory results Abnormal [facility] Interpretation and review of laboratory results Abnormal [facility] PHOSPHORUSon 06-29-2024 Phosphate [Mass/Vol] 3.3 mg/dL Normal 2.4-4.9 [facility] Comment on above: Performed By: #### I 8XCA #### [facility] ([id number]) [address] [place] [address] PLATELET FUNCTIONon 06-29-19 25 COLLAGEN/ADP 162 sec High 0-114 [facility] Comment on above: Performed By: #### C BCA, 5643-2, 1798-8, CMP, 3040-3, 52322-4, PINR, 86559-4 #### [facility] ([id number]) [address], [address] [place] [address] COLLAGEN/EPINEPHRINE 116 sec Normal 0-179 [facility] Comment on above: Performed By: #### C BCA, 5643-2, 1798-8, CMP, 3040-3, 26313-6, PINR, 42949-1 #### [facility] ([id number]) [address], [address] [place] [address] PFA INTERP This pattern is most commonly seen in patients Normal [facility] Comment on above: Result Comment: with von Willebrand disease or congenital platelet defects. However, thrombocytopenia (platelet count <100,000), anemia(HCT<30%), cardiovascular or renal disease may give abnormal results not related to an inherent platelet function abnormality. Futher platelet function studies may be indicated. Performed By: #### C BCA, 5643-2, 1798-8, CMP, 3040-3, 82112-8, PINR, 78509-4 #### [facility] ([id number]) [address], [address] [place] [address] POC CHEM7 W/ HCTon 5 Chloride [Moles/Vol] 107 mmol/L Normal 98-109 [facility] Comment on above: Performed By: #### I 8XCA #### [facility] ([id number]) [address] [place] [address] CO2 [Moles/Vol] 21 mmol/L Low 22-32 [facility] Comment on above: Performed By: #### I 8XCA #### [facility] ([id number]) [address] [place] [address] Creatinine [Mass/Vol] 1.7 mg/dL High 0.7-1.2 [facility] Comment on above: Result Comment: METH OD TRACEABLE TO IDMS STANDARD Performed By: #### I 8XCA #### [facility] ([id number]) [address] [place] [address] GFR/1.73 sq M.predicted among non-blacks MDRD (S/P/Bld) [Vol rate/Area] 41 mL/min/{1.73_m2} Low >59 [facility] Comment on above: Result Comment: Reported eGFR is based on the CKD-EPI 2020 equation that does not use a race coefficient. Performed By: #### I 8XCA #### [facility] ([id number]) [address] [place] [address] Glucose [Mass/Vol] 103 mg/dL High 65-99 [facility] Comment on above: Performed By: #### I 8XCA #### [facility] ([id number]) [address] [place] [address] Hematocrit (Bld) [Volume fraction] 20 % Low 39-49 [facility] Comment on above: Performed By: #### I 8XCA #### [facility] ([id number]) [address] [place] [address] Potassium [Moles/Vol] 3.5 mmol/L Normal 3.5-5.0 [facility] Comment on above: Performed By: #### I 8XCA #### [facility] ([id number]) [address] [place] [address] Sodium [Moles/Vol] 143 mmol/L Normal 134-146 [facility] Comment on above: Performed By: #### I 8XCA #### [facility] ([id number]) [address] [place] [address] Urea nitrogen [Mass/Vol] 14 mg/dL Normal 6-27 [facility] Comment on above: Performed By: #### I 8XCA #### [facility] ([id number]) [address] [place] [address] POCT Electrolytes w/ BUN, Cr eat, Gluc, Hematocriton 06-29-2024 Chloride [Moles/Vol] 107 mmol/L 98 - 10 9 mmol/L [facility] CO2 [Moles/Vol] 21 mmol/L Low 22 - 32 mmol/L [facility] Creatinine [Mass/Vol] 1.7 mg/dL High 0.7 - 1.2 mg/dL [facility] Comment on above: METHOD TRACEABLE TO [facility] STANDARD eGFR (CKD-EPI)non-race dependent 41 Low - PINF [facility] Comment on above: Reported eGFR is based on the CKD-EPI 2020 equation that does not use a race coefficient. Glucose [Mass/Vol] 103 mg/dL High 65 - 99 mg/dL [facility] Hematocrit (Bld) [Volume fraction] 20 % Low 39 - 49 % [facility] Interpretation and review of laboratory results Abnormal [facility] Potassium [Moles/Vol] 3.5 mmol/L 3.5 - 5.0 mmol/L [facility] Sodium [Moles/Vol] 143 mmol/L 134 - 146 mmol/L [facility] Urea nitrogen [Mass/Vol] 14 mg/dL 6 - 27 mg/dL [facility] PROTIME AND INRon 06-29-2024 INR Coag (PPP) [Relative time] 1.6 {INR} High 0.8-1.1 [facility] Comment on above: Performed By: #### C BCA, 5643-2, 1798-8, CMP, 3040-3, 80924-2, PINR, 62729-7 #### [facility] ([id number]) [address] [place] [address] PT Coag (PPP) [Time] 18.1 s High 9.8-13.2 [facility] Comment on above: Performed By: #### C BCA, 5643-2, 1798-8, CMP, 3040-3, 31733-7, PINR, 09294-5 #### [facility] ([id number]) [address] [place] [address] Phosphoruson 06-29-2024 Phosphate [Mass/Vol] 3.3 mg/dL 2.4 - 4 .9 mg/dL [facility] Platelet function teston Interpretation and review of laboratory results Abnormal [facility] Platelet function (closure time) collagen+ADP induced (Bld) [Time] 162 High [facility] Platelet function (closure time) collagen+EPINEPHrine induced (Bld) [Time] 116 [facility] Platelet function (closure time) Renaldo (Bld) [Interp] This pattern is most commonly seen in patients [facility] Comment on above: with von Willebrand disease or congenital platelet defects. However, thrombocytopenia (platelet count <100,000), anemia(HCT<30%), cardiovascular or renal disease may give abnormal results not related to an inherent platelet function abnormality. Futher platelet function studies may be indicated. [facility] Protime & INRon 06-29-2024 INR Coag (PPP) [Relative time] 1.6 {INR} High [facility] PT Coag (PPP) [Time] 18.1 s High [facility] Type and screen(includes ind irect zoie)on 06-29-2024 ABO A [facility] Rh Nom (Bld) Positive [facility] URINALYSISon 06-29-2024 Bilirubin Ql (U) Negative Normal NEG [facility] Comment on above: Performed By: #### I 8XCA #### [facility] ([id number]) [address] [place] [address] BLOOD/HGB Large Abnormal NEG [facility] Comment on above: Performed By: #### I 8XCA #### [facility] ([id number]) [address] [place] [address] Color (U) ALISSA Abnormal YELLOW [facility] Comment on above: Performed By: #### I 8XCA #### [facility] [facility] ([id number]) [address] [place] [address] Glucose Ql (U) >1000 Abnormal NEG [facility] Comment on above: Performed By: #### I 8XCA #### [facility] ([id number]) [address] [place] [address] Ketones Ql (U) Negative Normal NEG [facility] Comment on above: Performed By: #### I 8XCA #### [facility] ([id number]) [address] [place] [address] Leukocyte esterase Test strip Ql (U) Negative Normal NEG [facility] Comment on above: Result Comment: HIGH CONCENTRATIONS OF GLUCOSE MAY DECREASE THE REACTIVITY OF THE DIPSTICK LEUKOCYTE TEST PAD. Performed By: #### I 8XCA #### [facility] ([id number]) [address] [place] [address] MUCOUS PRESENT Abnormal NONE [facility] Comment on above: Performed By: #### I 8XCA #### [facility] ([id number]) [address] [place] [address] Nitrite Ql (U) Negative Normal NEG [facility] Comment on above: Performed By: #### I 8XCA #### [facility] ([id number]) [address] [place] [address] pH (U) 5.5 [pH] Normal 5.0-8.5 [facility] Comment on above: Performed By: #### I 8XCA #### [facility] ([id number]) [address] [place] [address] Protein Ql (U) 50 mg/dL Abnormal NEG [facility] Comment on above: Performed By: #### I 8XCA #### [facility] ([id number]) [address] [place] [address] R.B.CELLS >720 High 0-5 [facility] Comment on above: Performed By: #### I 8XCA #### [facility] ([id number]) [address] [place] [address] Specific gravity (U) [Rel density] 1.015 Normal 1.003-1.03 5 [facility] Comment on above: Performed By: #### I 8XCA #### [facility] ([id number]) [address] [place] [address] SQUAMOUS EPITHELIUM 1 /hpf Normal 0-5 [facility] Comment on above: Performed By: #### I 8XCA #### [facility] ([id number]) [address] [place] [address] TURBIDITY CLEAR Normal CLEAR [facility] Comment on above: Performed By: #### I 8XCA #### [facility] ([id number]) [address] [place] [address] Urinalysis dipstick W Reflex Microscopic panel (U) URINE RECEIVED WITHOUT PRESERVATIVE-DELAYS IN TRANSPORT MAY AFFECT RESULTS.INTERPRET WITH CAUTION AND CLINICAL CORRELATION IS RECOMMENDED. Normal [facility] Comment on above: Performed By: #### I 8XCA #### [facility] ([id number]) [address] [place] [address] Urobilinogen (U) [Mass/Vol] mg/dL Normal <1.1 [facility] Comment on above: Performed By: #### I 8XCA #### [facility] ([id number]) [address] [place] [address] W.B.CELLS 2 /hpf Normal 0-5 [facility] Comment on above: Performed By: #### I 8XCA #### [facility] ([id number]) [address] [place] [address] URINE CULTUREon 06-29-2024 Bacteria identified Cx Nom (U) SPECIMEN NOTES URINE RECEIVED WITHOUT PRESERVATIVE CULTURE RESULTS NO GROWTH AT <1000 CFU/mL Normal [facility] Comment on above: Performed By: #### C BCA, 5643-2, 1798-8, CMP, 3040-3, 20822-6, PINR, 74748-7 #### [facility] ([id number]) [address] [facility], [address] [place] [address] Urinalysison 06-29-2024 Bilirubin Ql (U) Negative Negative^N egative [facility] Color (U) ALISSA Abnormal YELLOW^YEL LOW [facility] Epithelial cells Auto (Urine sed) [#/Area] 1 [facility] Glucose (U) [Mass/Vol] mg/dL Abnormal Negat gabriela^N egative mg/dL [facility] Hemoglobin Auto test strip Ql (U) Large Abnormal Negative^N egative [facility] Interpretation and review of laboratory results Abnormal [facility] Ketones (U) [Mass/Vol] Negative Negat gabriela^N egative mg/dL [facility] Leukocyte esterase Auto test strip Ql (U) Negative Negative^N egative [facility] Comment on above: HIGH CONCENTRATIONS OF GLUCOSE MAY DECREASE THE REACTIVITY OF THE DIPSTICK LEUKOCYTE TEST PAD. Mucus Ql (Urine sed) PRESENT Abnormal NONE^NONE [facility] Nitrite Auto test strip Ql (U) Negative Negative^N egative [facility] pH (U) 5.5 [pH] 5.0 - 8.5 [facility] Protein (U) [Mass/Vol] 50 mg/dL Abnormal Negat gabriela^N egative [facility] RBC Auto (Urine sed) [#/Area] High [facility] Specific gravity Refractometry automated (U) [Rel density] 1.015 1.003 - 1.035 [facility] Turbidity Ql (U) CLEAR CLEAR^OMI R [facility] Urinalysis microscopic panel Auto (Urine sed) [#/Area] URINE RECEIVED WITHOUT PRESERVATIVE-DELAYS IN TRANSPORT MAY AFFECT RESULTS.INTERPRET WITH CAUTION AND CLINICAL CORRELATION IS RECOMMENDED. [facility] Urobilinogen Qn (U) NINF [facility] WBC Auto (Urine sed) [#/Area] 2 [facility] XR CHEST 1 VWon 06-29-2024 XR CHEST [...] Ricardo Cueto MD on 06/29/2024 1:47 AM [facility] XR Chest Single viewon 06-29 HISTORY: Pain, trauma COMPARISON: None FINDINGS: AP supine view of the chest was performed. Left-sided pacemaker with intact leads. Left basilar atelectasis. No overt vascular congestion. No significant pleural effusion or pneumothorax. Osseous structures are grossly intact. IMPRESSION: * No acute abnormality. 7 Finalized by Ricardo Cueto MD on 06/29/2024 1:47 AM [facility] Ricardo Cueto MD - 06/29/2024 HISTORY: Pain, trauma COMPARISON: None FINDINGS: AP supine view of the chest was performed. Left-sided pacemaker with intact leads. Left basilar atelectasis. No overt vascular congestion. No significant pleural effusion or pneumothorax. Osseous structures are grossly intact. IMPRESSION: * No acute abnormality. 7 Finalized by Ricardo Cueto MD on 06/29/2024 1:47 AM [facility] Radiology Study observation (narrative) [facility] XR Chest Single viewOrdered By: Ricardo Cueto on 06-29-2024 [facility] Work Phone: aPTT Coag (PPP) [Time]on aPTT Coag (Bld) [Time] 33 s Normal 26-37 [facility] Comment on above: Performed By: #### C BCA, 5643-2, 1798-8, CMP, 3040-3, 34593-1, PINR, 04916-0 #### [facility] ([id number]) [address], [address] [place] [address] BLOOD CULTUREon 06-28-2024 Bacteria identified Aer cx Nom (Bld) CULTURE RESULTS NO GROWTH 5 DAYS Normal [place] Bacteria identified Aer cx Nom (Bld) CULTURE RESULTS NO GROWTH 5 DAYS Normal [place] CBC AND AUTO DIFFon 06-28-19 25 ABSOLUTE BASOPHIL 0.0 X10E9/L Normal 0.0-0.2 [facility] Comment on above: Performed By: #### C BCA, PINR, 37370-8, CMP, 36110-0, 20972-1 #### [facility] ([id number]) [address] [place] [address] #### 07858-4 #### [facility] ([id number]) [address] [place] [address] ABSOLUTE NEUTROPHIL 12.3 X10E9/L High 1.5-6.6 [facility] Comment on above: Performed By: #### C BCA, PINR, 89141-7, CMP, 96388-4, 34292-7 #### [facility] ([id number]) [address] [place] [address] 13806 #### 91048-9 #### [facility] ([id number]) [address] [place] [address] Basophils/100 WBC (Bld) 0.3 % Normal P [facility] Comment on above: Performed By: #### C BCA, PINR, 07971-2, CMP, 00970-4, 61179-3 #### [facility] ([id number]) [address] [place] [address] 64000 #### 68603-3 #### [facility] ([id number]) [address], [address] [place] [address] Eosinophils (Bld) [#/Vol] 0.0 10*3/uL Normal 0.0-0.4 [place] Comment on above: Performed By: #### C BCA, PINR, 83190-7, CMP, 55179-9, 46240-1 #### [facility] ([id number]) [address] [place] [address] 58776 #### 02612-3 #### [facility] ([id number]) [address] [address] [place] [address] Eosinophils/100 WBC (Bld) 0.1 % Normal [place] Comment on above: Performed By: #### C BCA, PINR, 67974-4, CMP, 13867-9, 83254-7 #### [facility] ([id number]) [address] [place] [address] 14667 #### 88230-4 #### [facility] ([id number]) [address], [address] [place] [address] Erythrocyte distribution width (RBC) [Ratio] 15.0 % Normal 11.5-15.0 [place] Comment on above: Performed By: #### C BCA, PINR, 89338-9, CMP, 11785-0, 72892-2 #### [facility] ([id number]) [address] [place] [address] 98891 #### 06762-4 #### [facility] ([id number]) [address], [address] [place] [address] Hematocrit (Bld) [Volume fraction] 25.7 % Low 39-49 [place] Comment on above: Performed By: #### C BCA, PINR, 40571-9, CMP, 87739-9, 95659-9 #### [facility] ([id number]) [address] [place] [address] 83486 #### 55919-7 #### [facility] ([id number]) [address], [address] [place] [address] Hemoglobin (Bld) [Mass/Vol] 8.6 g/dL Low 13.0-17.0 [place] Comment on above: Performed By: #### C BCA, PINR, 62196-1, CMP, 72232-4, 53477-7 #### [facility] ([id number]) [address] [place] [address] 18688 #### 45126-6 #### [facility] ([id number]) [address], [address] [place] [address] Lymphocytes (Bld) [#/Vol] 0.5 10*3/uL Low 1.0-3.5 [place] Comment on above: Performed By: #### C BCA, PINR, 97114-5, CMP, 34779-4, 18776-5 #### [facility] ([id number]) [address] [place] [address] 81286 #### 38644-2 #### [facility] ([id number]) [address], [address] [place] [address] Lymphocytes/100 WBC (Bld) 3.3 % Normal [place] Comment on above: Performed By: #### C BCA, PINR, 17698-9, CMP, 46822-0, 66533-8 #### [facility] ([id number]) [address] [place] [address] 58372 #### 84388-8 #### [facility] ([id number]) [address], [address] [place] [address] MCH (RBC) [Entitic mass] 31.4 pg Normal 27-34 [place] Comment on above: Performed By: #### C BCA, PINR, 73608-0, CMP, 03554-9, 32980-9 #### [facility] ([id number]) [address] [place] [address] 11698 #### 27555-5 #### [facility] ([id number]) [address] [facility], [address] [place] [address] MCHC (RBC) [Mass/Vol] 33.6 g/dL Normal 32-36 [facility] Comment on above: Performed By: #### C BCA, PINR, 55233-9, CMP, 13807-4, 59516-9 #### [facility] ([id number]) [address] [place] [address] 14382 #### 53693-4 #### [facility] ([id number]) [address] [facility], [address] [place] [address] MCV (RBC) [Entitic vol] 94 fL Normal 80-100 P [facility] Comment on above: Performed By: #### C BCA, PINR, 16635-1, CMP, 17685-8, 45612-1 #### [facility] ([id number]) [address] [place] [address] 09478 #### 76858-0 #### [facility] ([id number]) [address] [facility], [address] [place] [address] Monocytes (Bld) [#/Vol] 1.0 10*3/uL High 0-0.9 [place] Comment on above: Performed By: #### C BCA, PINR, 31157-7, CMP, 24912-5, 28454-9 #### [facility] ([id number]) [address] [place] [address] 74219 #### 14106-2 #### [facility] ([id number]) [address] [facility] [place] [address] Monocytes/100 WBC (Bld) 7.4 % Normal [facility] Comment on above: Performed By: #### C BCA, PINR, 03039-1, CMP, 01356-8, 77325-5 #### [facility] ([id number]) [address] [place] [address] 51421 #### 45254-8 #### [facility] ([id number]) [address] [facility] [place] [address] Neutrophils/100 WBC (Bld) 88.9 % Normal [place] Comment on above: Performed By: #### C BCA, PINR, 58504-2, CMP, 21815-2, 96688-0 #### [facility] ([id number]) [address] [place] [address] 38100 #### 58843-0 #### [facility] ([id number]) [address] [facility] [place] [address] Platelet mean volume (Bld) [Entitic vol] 9.3 fL Normal 7-12 [place] Comment on above: Performed By: #### C BCA, PINR, 20952-6, CMP, 13195-0, 29156-8 #### [facility] ([id number]) [address] [place] [address] 83679 #### 58550-3 #### [facility] ([id number]) [address] [facility] [facility] [place] [address] Platelets (Bld) [#/Vol] 252 10*3/uL Normal 150-450 [place] Comment on above: Performed By: #### C BCA, PINR, 93251-6, CMP, 02006-2, 52794-9 #### [facility] ([id number]) [address] [place] [address] 87175 #### 07944-2 #### [facility] ([id number]) [address], [address] [place] [address] RBC COUNT 2.74 X10E12/L Low 4.10-5.70 [place] Comment on above: Performed By: #### C BCA, PINR, 68137-9, CMP, 13790-6, 75299-2 #### [facility] ([id number]) [address] [place] [address] 53089 #### 44368-1 #### [facility] ([id number]) [address], [address] [place] [address] WBC (Bld) [#/Vol] 13.8 10*3/uL High 4.0-11.0 [facility] Comment on above: Performed By: #### C BCA, PINR, 91096-9, CMP, 07740-1, 35468-8 #### [facility] ([id number]) [address] [place] [address] 21916 #### 07418-9 #### [facility] ([id number]) [address], [address] [place] [address] COMPREHENSIVE METABOLIC PANE Larry 06-28-2024 Albumin [Mass/Vol] 2.6 g/dL Low 3.2-5.3 [facility] Comment on above: Performed By: #### C BCA, PINR, 68678-5, CMP, 83207-7, 83290-9 #### [facility] ([id number]) [address] [place] [address] 65230 #### 92921-0 #### [facility] ([id number]) [address], [address] [place] [address] ALP [Catalytic activity/Vol] 70 U/L Normal 39-130 [place] Comment on above: Performed By: #### C BCA, PINR, 29798-0, CMP, 13361-8, 62652-0 #### [facility] ([id number]) [address] [place] [address] 73013 #### 38520-7 #### [facility] ([id number]) [address] [facility] [place] [address] ALT [Catalytic activity/Vol] 16 U/L Normal 0-40 [place] Comment on above: Performed By: #### C BCA, PINR, 66125-9, CMP, 22770-7, 33708-9 #### [facility] ([id number]) [address] [place] [address] 97250 #### 96380-6 #### [facility] ([id number]) [address] [facility] [place] [address] Anion gap [Moles/Vol] 6 mmol/L Normal 5-15 [facility] Comment on above: Performed By: #### C BCA, PINR, 79986-1, CMP, 28560-7, 70122-3 #### [facility] ([id number]) [address] [place] [address] 38446 #### 66620-3 #### [facility] ([id number]) [address] [facility] [facility] [place] [address] AST [Catalytic activity/Vol] 25 U/L Normal 0-41 [place] Comment on above: Performed By: #### C BCA, PINR, 75466-7, CMP, 60651-5, 09262-9 #### [facility] ([id number]) [address] [place] [address] 57770 #### 03233-8 #### [facility] ([id number]) [address], [address] [place] [address] Bilirubin [Mass/Vol] 1.7 mg/dL High 0.3-1.2 [facility] Comment on above: Performed By: #### C BCA, PINR, 11237-7, CMP, 02805-2, 93813-8 #### [facility] ([id number]) [address] [place] [address] 20672 #### 88587-7 #### [facility] ([id number]) [address] [facility] [place] [address] Calcium [Mass/Vol] 8.1 mg/dL Low 8.5-10.5 [facility] Comment on above: Performed By: #### C BCA, PINR, 71111-6, CMP, 43071-8, 23444-6 #### [facility] ([id number]) [address] [place] [address] 98689 #### 49705-0 #### [facility] ([id number]) [address] [place] [address] Chloride [Moles/Vol] 108 mmol/L Normal 98-109 [facility] Comment on above: Performed By: #### C BCA, PINR, 31751-9, CMP, 32777-5, 16541-6 #### [facility] ([id number]) [address] [place] [address] 47969 #### 14955-6 #### [facility] ([id number]) [address], [address] [place] [address] CO2 [Moles/Vol] 23 mmol/L Normal 22-32 [place] Comment on above: Performed By: #### C BCA, PINR, 14202-2, CMP, 49168-5, 03112-8 #### [facility] ([id number]) [address] [place] [address] 51178 #### 53963-4 #### [facility] ([id number]) [address] [place] [address] Creatinine [Mass/Vol] 1.90 mg/dL High 0.70-1.20 [facility] Comment on above: Result Comment: METH OD TRACEABLE TO IDMS STANDARD Performed By: #### C BCA, PINR, 91574-4, CMP, 45971-5, 26622-6 #### [facility] ([id number]) [address] [place] [address] 49339 #### 36770-8 #### [facility] ([id number]) [address] [facility] [facility] [place] [address] GFR/1.73 sq M.predicted among non-blacks MDRD (S/P/Bld) [Vol rate/Area] 36 mL/min/{1.73_m2} Low >59 Pr [facility] Comment on above: Result Comment: Reported eGFR is based on the CKD-EPI 2020 equation that does not use a race coefficient. Performed By: #### C BCA, PINR, 14662-6, CMP, 54448-6, 05695-8 #### [facility] ([id number]) [address] [place] [address] 26619 #### 18752-9 #### [facility] ([id number]) [address] [place] [address] Glucose [Mass/Vol] 137 mg/dL High 65-99 [facility] Comment on above: Performed By: #### C BCA, PINR, 42911-2, CMP, 19947-3, 06948-6 #### [facility] ([id number]) [address] [place] [address] 94017 #### 26220-8 #### [facility] ([id number]) [address] [place] [address] Potassium [Moles/Vol] 3.8 mmol/L Normal 3.5-5.0 [facility] Comment on above: Performed By: #### C BCA, PINR, 07415-8, CMP, 43236-5, 05445-5 #### [facility] ([id number]) [address] [place] [address] 41994 #### 26265-7 #### [facility] ([id number]) [address] [facility] [place] [address] Protein [Mass/Vol] 6.1 g/dL Normal 6.0-8.0 [facility] Comment on above: Performed By: #### C BCA, PINR, 87150-8, CMP, 57478-4, 06033-6 #### [facility] ([id number]) [address] [place] [address] 80103 #### 15606-4 #### [facility] ([id number]) [address] [facility] [place] [address] Sodium [Moles/Vol] 137 mmol/L Normal 134-146 [facility] Comment on above: Performed By: #### C BCA, PINR, 03329-5, CMP, 99622-1, 38639-8 #### [facility] ([id number]) [address] [place] [address] 13282 #### 29594-3 #### [facility] ([id number]) [address] [place] [address] Urea nitrogen [Mass/Vol] 20 mg/dL Normal 5-27 [place] Comment on above: Performed By: #### C BCA, PINR, 50472-8, CMP, 86114-8, 80526-5 #### [facility] ([id number]) [address] [facility] [place] [address] #### 01280-8 #### [facility] ([id number]) [address] [facility] [place] [address] CT ABDOMEN AND PELVIS W CONT on [...] Alexander MD on 06/28/2024 8:[address] [place] [address] BRAIN WO CONTon CT BRAIN WO [...] Alexander MD on 06/28/2024 8:[address] [place] [address] CERVICAL SPINE WO CONTon 06-28-2024 CT [...] Alexander MD on 06/28/2024 8:[address] [place] [address] FACIAL BONES WO CONTon CT FACIAL [...] Alexander MD on 06/28/2024 8:41 PM Normal [place] Fibrinogen Coagulation.deriv ed (PPP) [Mass/Vol]on 06-28-2024 FIBRINOGEN 644 mg/dL High 190-480 [place] Comment on above: Performed By: #### P INR, 40619-2 #### [facility] ([id number]) [address] [place] [address] 97582 #### CBCA, CMP #### [facility] ([id number]) [address] [place] [address] HEMOGLOBINon 06-28-2024 Hemoglobin (Bld) [Mass/Vol] 7.9 g/dL Low 13.0-17.0 [place] Comment on above: Performed By: #### P INR, 43502-4 #### [facility] ([id number]) [address] [place] [address] #### CBCA, CMP #### [facility] ([id number]) [address] [place] [address] Hematocrit Auto (Bld) [Volum e fraction]on 06-28-2024 Hematocrit (Bld) [Volume fraction] 23.3 % Low 39-49 [place] Comment on above: Performed By: #### P INR, 20472-6 #### [facility] ([id number]) [address] [place] [address] #### CBCA, CMP #### [facility] ([id number]) [address], [address] [place] [address] Lactate (P rosanne) [Moles/Vol]o n 06-28-2024 LACTATE W/REFLEX 1.6 mmol/L Normal 0.4-2.0 [facility] Comment on above: Result Comment: Result did not trigger repeat Lactate, re-order if needed. Performed By: #### P INR, 70650-8 #### [facility] ([id number]) [address] [place] [address] #### CBCA, CMP #### [facility] ([id number]) [address] [place] [address] MAGNESIUMon 06-28-2024 Magnesium [Mass/Vol] 1.9 mg/dL Normal 1.8-2.6 [facility] Comment on above: Performed By: #### C BCA, PINR, 11278-9, CMP, 66229-8, 42333-2 #### [facility] ([id number]) [address] [place] [address] #### 52786-4 #### [facility] ([id number]) [address], [address] [place] [address] PROTIME AND INRon 06-28-2024 INR Coag (PPP) [Relative time] 1.7 {INR} High 0.8-1.1 [place] Comment on above: Performed By: #### P INR, 12669-8 #### [facility] ([id number]) [address] [place] [address] #### CBCA, CMP #### [facility] ([id number]) [address], [address] [place] [address] PT Coag (PPP) [Time] 18.9 s High 9.8-13.2 [facility] Comment on above: Result Comment: NEW REFERENCE RANGE Performed By: #### P INR, 80412-5 #### [facility] ([id number]) [address] [place] [address] #### CBCA, CMP #### [facility] ([id number]) [address] [place] [address] INR Coag (PPP) [Relative time] 3.1 {INR} High 0.8-1.1 [place] Comment on above: Performed By: #### C BCA, PINR, 03388-7, CMP, 68797-1, 47650-2 #### [facility] ([id number]) [address] [place] [address] #### 65662-4 #### [facility] ([id number]) [address], [address] [place] [address] PT Coag (PPP) [Time] 34.3 s High 9.8-13.2 [facility] Comment on above: Result Comment: NEW REFERENCE RANGE Performed By: #### C BCA, PINR, 76516-6, CMP, 76664-8, 99018-2 #### [facility] ([id number]) [address] [place] [address] #### 55806-5 #### [facility] ([id number]) [address], [address] [place] [address] Procalcitonin IA [Mass/Vol]o n 06-28-2024 PROCALCITONIN 0.33 ng/mL High <0.05 [place] Comment on above: Result Comment: NOTE <0.50 ng/mL - Low risk of severe sepsis and/or septic shock. <2.00 ng/mL - Recommend retesting within 6-24 hours. >2.00 ng/mL - High risk of sepsis and/or septic shock. Performed By: #### C BCA, PINR, 03265-1, CMP, 98955-0, 09234-3 #### [facility] ([id number]) [address] [facility], [place] [address] #### 10501-4 #### [facility] ([id number]) [address] [place] [address], [address] [place] [address] SARS/FLU A+B/RSV by NAAT/Mol ecularon 06-28-2024 SARS/FLU [...] operators who are performing tests using either [employer] or [employer] systems and is limited to laboratories that [...] repeat. Fact Sheet for Healthcare Providers: https://www.fda.gov /media/681107/downl oad Fact Sheet for Patients: https://www.fda.gov /media/765120/downl oad Normal [place] Comment on above: Performed By: #### P INR, 35181-1 #### [facility] ([id number]) [address] [place] [address] #### CBCA, CMP #### [facility] ([id number]) [address], [address] [place] [address] URINALYSISon 06-28-2024 Bilirubin Ql (U) Negative Normal NEG [facility] Comment on above: Performed By: #### P INR, 97865-6 #### [facility] ([id number]) [address] [place] [address] #### CBCA, CMP #### [facility] ([id number]) [address], [address] [place] [address] BLOOD/HGB Large Abnormal NEG [place] Comment on above: Performed By: #### P INR, 68151-5 #### [facility] ([id number]) [address] [place] [address] #### CBCA, CMP #### [facility] ([id number]) [address] [place] [address] Color (U) ALISSA Abnormal YELLOW [place] Comment on above: Performed By: #### P INR, 33859-6 #### [facility] ([id number]) [address] [place] [address] #### CBCA, CMP #### [facility] ([id number]) [address], [address] [place] [address] Glucose Ql (U) >1000 Abnormal NEG [place] Comment on above: Performed By: #### P INR, 48047-6 #### [facility] ([id number]) [address] [place] [address] #### CBCA, CMP #### [facility] ([id number]) [address], [address] [place] [address] Ketones Ql (U) Negative Normal NEG [place] Comment on above: Performed By: #### P INR, 90204-2 #### [facility] ([id number]) [address] [place] [address] #### CBCA, CMP #### [facility] ([id number]) [address] [place] [address] Leukocyte esterase Test strip Ql (U) Negative Normal NEG [place] Comment on above: Result Comment: HIGH CONCENTRATIONS OF GLUCOSE MAY DECREASE THE REACTIVITY OF THE DIPSTICK LEUKOCYTE TEST PAD. Performed By: #### P INR, 79826-5 #### [facility] ([id number]) [address] [place] [address] #### CBCA, CMP #### [facility] ([id number]) [address], [address] [place] [address] Nitrite Ql (U) Negative Normal [place] Comment on above: Performed By: #### P INR, 50057-5 #### [facility] ([id number]) [address] [place] [address] #### CBCA, CMP #### [facility] ([id number]) [address] [place] [address] pH (U) 6.0 [pH] Normal 5.0-8.5 [place] Comment on above: Performed By: #### P INR, 89977-8 #### [facility] ([id number]) [address] [place] [address] #### CBCA, CMP #### [facility] ([id number]) [address] [facility], [address] [place] [address] Protein Ql (U) 100 mg/dL Abnormal NEG [place] Comment on above: Performed By: #### P INR, 80169-2 #### [facility] ([id number]) [address] [place] [address] #### CBCA, CMP #### [facility] ([id number]) [address] [facility], [address] [place] [address] R.B.CELLS 10 /hpf High 0-5 [place] Comment on above: Performed By: #### P INR, 35150-2 #### [facility] ([id number]) [address] [place] [address]36 #### CBCA, CMP #### [facility] ([id number]) [address] [place] [address] Specific gravity (U) [Rel density] 1.015 Normal 1.003-1.03 5 [place] Comment on above: Performed By: #### P INR, 85512-9 #### [facility] ([id number]) [address] [place] [address] #### CBCA, CMP #### [facility] ([id number]) [address], [address] [place] [address] TURBIDITY HAZY Abnormal CLEAR [place] Comment on above: Performed By: #### P INR, 56794-8 #### [facility] ([id number]) [address] [place] [address]26 #### CBCA, CMP #### [facility] ([id number]) [address], [address] [place] [address] Urobilinogen Qn (U) 0.2 {Liana'U}/dL Normal <1.1 [place] Comment on above: Performed By: #### P INR, 60137-0 #### [facility] ([id number]) [address] [place] [address] #### CBCA, CMP #### [facility] ([id number]) [address], [address] [place] [address] W.B.CELLS 0 /hpf Normal 0-5 [place] Comment on above: Performed By: #### P INR, 42673-0 #### [facility] ([id number]) [address] [place] [address] #### CBCA, CMP #### [facility] ([id number]) [address], [address] [place] [address] URINE CULTUREon 06-28-2024 Bacteria identified Cx Nom (U) CULTURE RESULTS NO GROWTH AT <1000 CFU/mL Normal [place] Comment on above: Performed By: #### P INR, 85607-9 #### [facility] ([id number]) [address] [place] [address]673 #### CBCA, CMP #### [facility] ([id number]) [address], [address] [place] [address] aPTT Coag (PPP) [Time]on aPTT Coag (Bld) [Time] 40 s High 26-37 Pr [facility] Comment on above: Result Comment: NEW REFERENCE RANGE Performed By: #### C BCA, PINR, 29115-6, CMP, 42334-7, 07512-3 #### [facility] ([id number]) [address] [facility], [place] [address] #### 61950-5 #### [facility] ([id number]) [address] [place] [address], [address] [place] [address] APTTon 06-26-2024 ACTIVATED PARTIAL THROMBOPLASTIN TIME IN PPP BY COAGULATION ASSAY 35.6 Seconds High 25.0-35.0 [facility] Comment on above: Result Comment: Clin ical significance of the APTT is questionable in the presence of heparin. Performed By: #### L [id number] ####[facility] ([facility])[address] [place] [address] B-TYPE NATRIURETIC PEPTIDEon 06-26-2024 Natriuretic peptide B (Bld) [Mass/Vol] 441 pg/mL High 0-100 [facility] Comment on above: Performed By: #### L [id number] ####[facility] ([facility])[address] [place] [address] CBC WITH AUTO DIFFERENTIALon 06-26-2024 Basophils (Bld) [#/Vol] 0.03 10*3/uL Normal 0.00-0.20 [facility] Comment on above: Performed By: #### L [id number] ####[facility] ([facility])[address] [place] [address] Basophils/100 WBC (Bld) 0.3 % Normal 0.0-1.0 [facility] Comment on above: Performed By: #### L [id number] ####[facility] ([facility])[address] [place] [address] Eosinophils (Bld) [#/Vol] 0.06 10*3/uL Normal 0.00-0.5 0 [facility] Comment on above: Performed By: #### L [id number] ####[facility] (BE[facility])[address] [place] [address] Eosinophils/100 WBC (Bld) 0.6 % Normal 0.0-6.0 [facility] Comment on above: Performed By: #### L [id number] ####[facility] ([facility])[address] [place] [address] Erythrocyte distribution width (RBC) [Ratio] 14.2 % Normal 11.5-15.0 [facility] Comment on above: Performed By: #### L [id number] ####[facility] ([facility])[address] [place] [address] ERYTHROCYTE MEAN CORPUSCULAR HEMOGLOBIN CONCENTRATION (G/DL) BY AUTOMATED 31.8 g/dL Low 32.0-35.0 [facility] Comment on above: Performed By: #### L [id number] ####[facility] ([facility])[address] [place] [address] Hematocrit (Bld) [Volume fraction] 34.3 % Low 39.0-55.0 [facility] Comment on above: Performed By: #### L [id number] ####[facility] ([facility])[address] [place] [address] Hemoglobin (Bld) [Mass/Vol] 10.9 g/dL Low 13.0-17.0 [facility] Comment on above: Performed By: #### L [id number] ####[facility] ([facility])[address] [place] [address] Immature granulocytes (Bld) [#/Vol] 0.08 10*3/uL Normal 0.00-0.20 [facility] Comment on above: Performed By: #### L [id number] ####[facility] ([facility])[address] [place] [address] Immature granulocytes/100 WBC (Bld) 0.8 % Normal 0.0-1.0 [facility] Comment on above: Performed By: #### L [id number] ####[facility] ([facility])[address] [place] [address] Lymphocytes (Bld) [#/Vol] 0.58 10*3/uL Low 1.20-4.0 0 [facility] Comment on above: Performed By: #### L [id number] ####[facility] ([facility])[address] [place] [address] Lymphocytes/100 WBC (Bld) 5.7 % Low 20.0-45.0 [facility] Comment on above: Performed By: #### L [id number] ####[facility] ([facility])[address] [place] [address] MCH (RBC) [Entitic mass] 30.9 pg Normal 27.0-33.0 [facility] Comment on above: Performed By: #### L [id number] ####[facility] ([facility])[address] [place] [address] MCV (RBC) [Entitic vol] 97.2 fL Normal 82.0-98.0 [facility] Comment on above: Performed By: #### L [id number] ####[facility] ([facility])[address] [place] [address] Monocytes (Bld) [#/Vol] 0.79 10*3/uL Normal 0.10-1.00 [facility] Comment on above: Performed By: #### L [id number] ####[facility] ([facility])[address] [place] [address] Monocytes/100 WBC (Bld) 7.8 % Normal 5.0-12.0 [facility] Comment on above: Performed By: #### L [id number] ####[facility] ([facility])[address] [place] [address] Neutrophils (Bld) [#/Vol] 8.64 10*3/uL High 1.60-7.6 0 [facility] Comment on above: Performed By: #### L [id number] ####[facility] ([facility])[address] [place] [address] Neutrophils/100 WBC (Bld) 84.8 % High 40.0-72.0 [facility] Comment on above: Performed By: #### L [id number] ####[facility] ([facility])[address] [place] [address] NRBC (PER 100 WBCS) BY AUTOMATED COUNT 0.0 % Normal 0 [facility] Comment on above: Performed By: #### L [id number] ####[facility] ([facility])[address] [place] [address] PLATELETS (10*3/UL) IN BLOOD AUTOMATED COUNT 191 10*3/uL Normal 150-400 [facility] Comment on above: Performed By: #### L [id number] ####[facility] ([facility])[address] [place] [address] RBC (Bld) [#/Vol] 3.53 10*6/uL Low 4.20-5.70 [facility] Comment on above: Performed By: #### L [id number] ####[facility] ([facility])[address] [place] [address] WBC (Bld) [#/Vol] 10.18 10*3/uL Normal 4.00-10.60 [facility] Comment on above: Performed By: #### L [id number] ####[facility] ([facility])[address] [place] [address] COMPREHENSIVE METABOLIC PANE Larry 06-26-2024 Albumin [Mass/Vol] 3.1 g/dL Low 3.5-5.7 [facility] Comment on above: Performed By: #### L [id number] ####[facility] ([facility])[address] [place] [address] ALP [Catalytic activity/Vol] 71 U/L Normal 34-104 [facility] Comment on above: Performed By: #### L [id number] ####[facility] ([facility])[address] [place] [address] ALT [Catalytic activity/Vol] 16 U/L Normal 7-52 [facility] Comment on above: Performed By: #### L [id number] ####[facility] ([facility])[address] [place] [address] Anion gap [Moles/Vol] 10 mmol/L Normal 7-20 [facility] Comment on above: Performed By: #### L [id number] ####[facility] ([facility])[address] [place] [address] AST [Catalytic activity/Vol] 23 U/L Normal 13-39 [facility] Comment on above: Performed By: #### L [id number] ####[facility] ([facility])[address] [place] [address] Bilirubin [Mass/Vol] 0.9 mg/dL Normal 0.3-1.0 [facility] Comment on above: Performed By: #### L [id number] ####[facility] ([facility])[address] [place] [address] Calcium [Mass/Vol] 8.1 mg/dL Low 8.6-10.3 [facility] Comment on above: Performed By: #### L [id number] ####[facility] ([facility])[address] [place] [address] Chloride [Moles/Vol] 108 mmol/L High 98-107 [facility] Comment on above: Performed By: #### L [id number] ####[facility] ([facility])[address] [place] [address] CO2 [Moles/Vol] 24 mmol/L Normal 21-[address] [facility] Comment on above: Performed By: #### L [id number] ####[facility] ([facility])[address] [place] [address] Creatinine [Mass/Vol] 1.28 mg/dL Normal 0.70-1.30 [facility] Comment on above: Performed By: #### L [id number] ####[facility] ([facility])[address] [place] [address] GLOMERULAR FILTRATION RATE ML/MIN/1.73 SQ M.PREDICTED 57.3 mL/min/1.73m*2 Low >60.0 [facility] Comment on above: Result Comment: The [facility]???s estimated glomerular filtration rate (eGFR) will [...] of individuals. Performed By: #### L [id number] ####[facility] ([facility])[address] [place] [address] Glucose [Mass/Vol] 117 mg/dL High 70-100 [facility] Comment on above: Performed By: #### L [id number] ####[facility] ([facility])[address] [place] [address] Potassium [Moles/Vol] 3.6 mmol/L Normal 3.5-5.1 [facility] Comment on above: Performed By: #### L [id number] ####[facility] ([facility])[address] [place] [address] Protein [Mass/Vol] 5.6 g/dL Low 6.0-8.3 [facility] Comment on above: Performed By: #### L [id number] ####[facility] ([facility])[address] [place] [address] Sodium [Moles/Vol] 138 mmol/L Normal 136-145 [facility] Comment on above: Performed By: #### L [id number] ####[facility] ([facility])[address] [place] [address] Urea nitrogen [Mass/Vol] 13 mg/dL Normal 7-25 [facility] Comment on above: Performed By: #### L [id number] ####[facility] ([facility])[address] [place] [address] UREA NITROGEN/CREATININE (MASS RATIO) IN SER/PLAS 10.2 Normal [facility] Comment on above: Performed By: #### L [id number] ####[facility] ([facility])[address] [place] [address] CONSULTon 06-26-2024 CONSULT Normal [facility] CT ABDOMEN PELVIS WO IV CONT RASTon 06-26-2024 CT ABDOMEN PELVIS WO IV CONTRAST Normal [facility] EDNURSon 06-26-2024 EDNURS Gown ,call light, warm blanket, urinal, labeled speci cup provided. Son with pt. Pt transfer self to stretcher from personal w/c with some difficulty Normal [facility] EDNURS Normal [facility] EDPROVon 06-26-2024 EDPROV Normal [facility] MAGNESIUMon 06-26-2024 Magnesium [Mass/Vol] 1.7 mg/dL Low 1.9-2.7 [facility] Comment on above: Performed By: #### L [id number] ####[facility] ([facility])[address] [place] [address] PROTIME-INRon 06-26-2024 INR IN PPP BY COAGULATION ASSAY 2.07 High 0.90-1.10 [facility] Comment on above: Result Comment: ACCC [...] CHEST 1995;[id number]. Performed By: #### L [id number] ####[facility] ([facility])[address] [place] [address] PROTHROMBIN TIME (PT) IN PPP BY COAGULATION ASSAY 22.9 Seconds High 12.3-14.8 [facility] Comment on above: Performed By: #### L [id number] ####[facility] ([facility])[address] [place] [address] TROPONIN Ion 06-26-2024 Troponin I.cardiac [Mass/Vol] 0.01 ng/mL Normal 0.00-0.04 [facility] Comment on above: Performed By: #### L [id number] ####[facility] ([facility])[address] [place] [address] TYPE AND SCREENon 06-26-2024 AB SCREEN Negative Normal [facility] Comment on above: Performed By: #### L [id number] ####[facility], ABO group Nom (Bld) A Normal [facility] Comment on above: Performed By: #### L [id number] ####[facility], RH TYPE IN BLOOD Positive Normal [facility] Comment on above: Performed By: #### L [id number] ####[facility], URINALYSIS MICROSCOPIC WITH REFLEX CULTUREon 06-26-2024 MUCUS (#/LPF) IN URINE SEDIMENT Occasional Normal None Seen, Occasional , Few [facility] Comment on above: Performed By: #### L [id number] ####[facility] ([facility])[address] [place] [address] RBC (#/HPF) IN URINE SEDIMENT >20 Abnormal None Seen, 0-2 [facility] Comment on above: Performed By: #### L [id number] ####[facility] ([facility])[address] [place] [address] SQUAMOUS EPITHELIAL CELLS (#/LPF) IN URINE SEDIMENT None Seen Normal None Seen, Occasional , Few [facility] Comment on above: Performed By: #### L [id number] ####[facility] ([facility])[address] [place] [address] WBC (LEUKOCYTE) (#/HPF) IN URINE SEDIMENT >50 Abnormal None Seen, 0-2 [facility] Comment on above: Performed By: #### L [id number] ####[facility] ([facility])[address] [place] [address] URINALYSIS WITH REFLEX CULTU REon 06-26-2024 BILIRUBIN, TOTAL PRESENCE IN URINE Negative Normal Negative [facility] Comment on above: Performed By: #### L [id number] ####[facility] ([facility])[address] [place] [address] Clarity (U) Cloudy Abnormal Clear [facility] Comment on above: Performed By: #### L [id number] ####[facility] ([facility])[address] [place] [address] Color (U) Dark-Yellow Abnormal Colorless, Yellow, Light-Cayey ow [facility] Comment on above: Performed By: #### L [id number] ####[facility] ([facility])[address] [place] [address] Glucose (U) [Mass/Vol] mg/dL Abnormal Normal [facility] on above: Performed By: #### L [id number] ####[facility] ([facility])[address] [place] [address] HEMOGLOBIN PRESENCE IN URINE Large Abnormal Negative [facility] Comment on above: Performed By: #### L [id number] ####[facility] ([facility])[address] [place] [address] Ketones Ql (U) Negative Normal Negative [facility] Comment on above: Performed By: #### L [id number] ####[facility] ([facility])[address] [place] [address] LEUKOCYTE ESTERASE PRESENCE IN URINE BY TEST STRIP Large Abnormal Negative [facility] Comment on above: Performed By: #### L [id number] ####[facility] ([facility])[address] [place] [address] NITRITE PRESENCE IN URINE Negative Normal Negative [facility] Comment on above: Performed By: #### L [id number] ####[facility] ([facility])[address] [place] [address] pH (U) 6.5 [pH] Normal 5.0-8.0 [facility] Comment on above: Performed By: #### L [id number] ####[facility] ([facility])[address] [place] [address] Protein (U) [Mass/Vol] 30 mg/dL Abnormal Negative [facility] Comment on above: Performed By: #### L [id number] ####[facility] ([facility])[address] [place] [address] Specific gravity (U) [Rel density] 1.023 Normal 1.010-1.03 0 [facility] Comment on above: Performed By: #### L [id number] ####[facility] ([facility])[address] [place] [address] UROBILINOGEN (MG/DL) IN URINE 4.0 mg/dL Abnormal Normal [facility] Comment on above: Performed By: #### L [id number] ####[facility] ([facility])[address] [place] [address] URINE CULTURE, ROUTINEon Bacteria identified Cx Nom (U) No growth at 48 hours Normal [facility] Comment on above: Performed By: #### L [id number] ####[facility] ([facility])[address] [place] [address] ANESon 06-19-2024 ANES Normal [facility] ANES Normal [facility] DEVICE CULTUREon 06-19-2024 Bacteria identified Cx Nom (Unsp spec) No growth at 3 days Normal [facility] Comment on above: Order Comment: Pre-o p diagnosis:Kidney stones [N20.0] Performed By: #### D EVICE CULTURE ####[facility] ([facility])[address] [place] [address] HISTOLOGY - TISSUE EXAMon LAB AP ADDENDUM 1 Normal [facility] Comment on above: Order Comment: Pre-o p diagnosis:Kidney stones [N20.0] Result Comment: 06-16: This case was sent to the Urolithiasis Laboratory in [place], [place] for chemical analysis (please see accompanying report). ? Please see results below:Urolithiasis Results:No nidus observed in the specimenThe stone is composed of:?? Calcium oxalate monohydrate:? 100%Addendum electronically signed by Katy Pierre MD on 07/04/2024 at 11:38 AM Performed By: #### L [id number] ####[facility] (BEAKER)[address] [place] [address] LAB AP CASE REPORT Normal [facility] Comment on above: Order Comment: Pre-o p diagnosis:Kidney stones [N20.0] Result Comment: Surg ical Pathology Case: [id number] Provider: Tino Langston MD Collected: 06/19/2024 1004Ordering Location: [facility] Main Operating Room Received: 06/19/2024 1259Pathologist: JERONIMO Boydpecimen: Kidney, KIDNEY STONE FOR ANALYSIS Performed By: #### L [id number] ####[facility] (BEAKER)[address] [place] [address] LAB AP CLINICAL INFORMATION Normal [facility] Comment on above: Order Comment: Pre-o p diagnosis:Kidney stones [N20.0] Result Comment: Pre- op diagnosis:Kidney stones [N20.0] Performed By: #### L [id number] ####[facility] (BEAKER)[address] [place] [address] LAB AP GROSS DESCRIPTION A. Kidney. [facility] Comment on above: Order Comment: Pre-o p diagnosis:Kidney stones [N20.0] Result Comment: Part A is received fresh labeled Neptali Shiets and kidney stone for analysis . It consists of 2 irregular, wiggins-brown, firm calculi measuring 0.2 x 0.2 x 0.1 cm and 0.2 x 0.1 x 0.1 cm. The specimen is submitted to the Urolithiasis Lab in [place], [place] for chemical analysis.Carolina Adams, Pathologists' Revising Clerk studentAyden Lawson, Pathologists' Revising Clerk student Performed By: #### L [id number] ####[facility] ([facility])[address] [place] [address] LAB AP REPORT FINAL DIAGNOSIS NARRATIVE [facility] Comment on above: Order Comment: Pre-o p diagnosis:Kidney stones [N20.0] Result Comment: Shakeel montemayor, stone , removal: - Stone fragments for chemical analysis. Performed By: #### L [id number] ####[facility] ([facility])[address] [place] [address] HPon 06-19-2024 HP [facility] OPNOTEon 06-19-2024 OPNOTE [facility] POCT GLUCOSE METER UNSOLICIT ED RESULTSon 06-19-2024 Glucose [Mass/Vol] 84 mg/dL Normal 70-105 [facility] Comment on above: Order Comment: Waive d Testing in the ED is performed under the ED CLIA certificate #[id number]. Result Comment: jenc [email or web address] Performed By: #### L [id number] ####[facility] ([facility])[address] [place] [address] Orders Onlyon 06-18-2024 Orders Only [facility] Orders Onlyon 06-17-2024 Orders Only [facility] Orders Onlyon 05-29-2024 Orders Only [facility] ANESon 05-21-2024 ANES [facility] ANES [facility] HPon 05-21-2024 HP [facility] NURSNOTEon 05-21-2024 DC Spoke with Mehdi from [employer] he stated it is not necessary to interrogate patients pacemaker. Pt is 100% paced and capture AV paced with no issues noted. Dr Ashley notified. 1245 cont with no problems. Stable for DC home. Normal [facility] OPNOTEon 05-21-2024 OPNOTE [facility] Orders Onlyon 05-21-2024 Orders Only [facility] POCT GLUCOSE METER UNSOLICIT ED RESULTSon 05-21-2024 Glucose [Mass/Vol] 90 mg/dL Normal 70-105 [facility] Comment on above: Order Comment: Waive d Testing in the ED is performed under the ED CLIA certificate #[id number]. Result Comment: ngro phong Performed By: #### L [id number] ####[facility] (BEAKER)[address] [place] [address] POCT PERFUSION PANEL UNSOLIC ITED RESULTSon 05-21-2024 CO2 [Moles/Vol] 27.0 mmol/L Normal 21.0-29.0 [facility] Comment on above: Performed By: #### L [id number] ####[facility] (BEAKER)[address] [place] [address] Glucose [Mass/Vol] 96 mg/dL Normal 70-105 [facility] Comment on above: Performed By: #### L [id number] ####[facility] ([facility]ER)[address] [place] [address] HCO3 (Bld) [Moles/Vol] 25.5 mmol/L Normal 23.0-28.0 [facility] Comment on above: Performed By: #### L [id number] ####[facility] (BEAKER)[address] [place] [address] Hematocrit (Bld) [Volume fraction] 42 % Normal 38-51 [facility] Comment on above: Performed By: #### L [id number] ####[facility] ([facility])[address] [address] Hemoglobin (Bld) [Mass/Vol] 14.3 g/dL Normal 12.0-17.0 [facility] Comment on above: Performed By: #### L [id number] ####[facility] ([facility])[address] [place] [address] POCT BASE EXCESS -1.0 mmol/L Normal -2.0-3.0 [facility] Comment on above: Performed By: #### L [id number] ####[facility] ([facility])[address] [address] POCT IONIZED CALCIUM 1.51 mmol/L High 1.12-1.32 [facility] Comment on above: Performed By: #### L [id number] ####[facility] ([facility])[address] [address] POCT PCO2 47.1 mmHg Normal 41.0-51.0 [facility] Comment on above: Performed By: #### L [id number] ####[facility] ([facility])[address] [address] POCT PH 7.34 Normal 7.31-7.41 [facility] Comment on above: Performed By: #### L [id number] ####[facility] ([facility])[address] [address] POCT PO2 141 mmHg High 80-105 [facility] Comment on above: Performed By: #### L [id number] ####[facility] ([facility])[address] [address] POCT SO2 99 % High 95-98 [facility] Comment on above: Performed By: #### L [id number] ####[facility] ([facility] [address] Potassium [Moles/Vol] 3.0 mmol/L Low 3.5-4.9 [facility] Comment on above: Performed By: #### L [id number] ####[facility] ([facility])[address] [place] [address] Sodium [Moles/Vol] 142 mmol/L Normal 138.0-146 . 0 [facility] Comment on above: Performed By: #### L [id number] ####[facility] ([facility])[address] [place] [address] URINE CULTURE, STERILE COLLE CTIONon 05-21-2024 Bacteria identified Cx Nom (U) No growth at 48 hours Normal [facility] Comment on above: Order Comment: Pre-o p diagnosis:Staghorn calculus [N20.0] Performed By: #### L [id number] ####[facility] ([facility])[address] [place] [address] GRAM STAIN RESULT Normal [facility] Comment on above: Order Comment: Pre-o p diagnosis:Staghorn calculus [N20.0] Result Comment: No p olymorphonuclear leukocytes seenNo organisms seen Performed By: #### L [id number] ####[facility] ([facility])[address] [place] [address] Orders Onlyon 05-20-2024 Orders Only Normal [facility] Urine Cultureon 05-15-2024 Bacteria identified Cx Nom (U) No Growth 2 Days PERFORMED BY: [facility] [address] [place] [address] PATHOLOGIST CLINICAL INFORMATICS PHYSICIAN MARTINE BAIN M.D. Normal [facility] Comment on above: Performed By: #### C UU #### [facility] [address] [place] [address] [place] Orders Onlyon 05-10-2024 Orders Only Normal [facility] 37on 04-24-2024 37 Normal [facility] Orders Onlyon 04-24-2024 Orders Only Normal [facility] Follow-Upon 04-19-2024 Follow-Up Normal [facility] 36on 04-18-2024 36 Patrice, patient's son called back and said his BP now was 131/79. I advised him to continue to keep track of his father's BP trends, taking it 1-2 hours after medications. Asked him to make our office aware of any concerns. He verbalized understanding. [facility] 36 [facility] 36on 04-04-2024 36 Please let him know, labs look good. Okay to resume Farxiga and spironolactone half tablet daily. Thanks! [facility] 36on 04-03-2024 36 Okay to resume Metoprolol. Will await his lab results to see if okay to resume the rest. Please follow-up tomorrow to make sure labs were done today. Thank you! [facility] Telephoneon 04-03-2024 Telephone [facility] 37on 04-02-2024 37 *Replacing carvedilol with metoprolol succinate, 25mg, 1 tablet daily. *Prescription sent for an antibiotic, doxycycline 100mg. Take twice daily for 10 days. [facility] 30on 03-06-2024 30 [facility] 30 [facility] 30 [facility] BASIC METABOLIC PANELon 02-13 Anion gap [Moles/Vol] 7 mmol/L Normal 7-20 [facility] Comment on above: Performed By: #### L [id number] ####[facility] (BEAKER)[address] [place] [address] Calcium [Mass/Vol] 8.4 mg/dL Low 8.6-10.3 [facility] Comment on above: Performed By: #### L [id number] ####[facility] (BEAKER)[address] [place] [address] Chloride [Moles/Vol] 105 mmol/L Normal 98-107 [facility] Comment on above: Performed By: #### L [id number] ####[facility] (BEAKER)[address] [place] [address] CO2 [Moles/Vol] 32 mmol/L High 21-[address] [facility] Comment on above: Performed By: #### L [id number] ####[facility] ([facility])[address] [place] [address] Creatinine [Mass/Vol] 0.95 mg/dL Normal 0.70-1.30 [facility] Comment on above: Performed By: #### L [id number] ####[facility] ([facility])[address] [place] [address] GLOMERULAR FILTRATION RATE ML/MIN/1.73 SQ M.PREDICTED 81.9 mL/min/1.73m*2 Normal >60.0 [facility] Comment on above: Result Comment: The [facility]???s estimated glomerular filtration rate (eGFR) will [...] of individuals. Performed By: #### L [id number] ####[facility] ([facility])[address] [place] [address] Glucose [Mass/Vol] 90 mg/dL Normal 70-100 [facility] Comment on above: Performed By: #### L [id number] ####[facility] ([facility])[address] [place] [address] Potassium [Moles/Vol] 3.8 mmol/L Normal 3.5-5.1 [facility] Comment on above: Performed By: #### L [id number] ####[facility] ([facility])[address] [place] [address] Sodium [Moles/Vol] 140 mmol/L Normal 136-145 [facility] Comment on above: Performed By: #### L [id number] ####[facility] (BEAKER)[address] [address] Urea nitrogen [Mass/Vol] 21 mg/dL Normal 7-25 [facility] Comment on above: Performed By: #### L [id number] ####[facility] ([facility])[address] [address] UREA NITROGEN/CREATININE (MASS RATIO) IN SER/PLAS 22.1 Normal [facility] Comment on above: Performed By: #### L [id number] ####[facility] ([facility])[address] [address] CBCon 03-06-2024 Erythrocyte distribution width (RBC) [Ratio] 13.3 % Normal 11.5-15.0 [facility] Comment on above: Performed By: #### L [id number] ####[facility] ([facility])[address] [address] ERYTHROCYTE MEAN CORPUSCULAR HEMOGLOBIN CONCENTRATION (G/DL) BY AUTOMATED 31.9 g/dL Low 32.0-35.0 [facility] Comment on above: Performed By: #### L [id number] ####[facility] ([facility])[address] [address] Hematocrit (Bld) [Volume fraction] 38.3 % Low 39.0-55.0 [facility] Comment on above: Performed By: #### L [id number] ####[facility] ([facility])[address] [address] Hemoglobin (Bld) [Mass/Vol] 12.2 g/dL Low 13.0-17.0 [facility] Comment on above: Performed By: #### L [id number] ####[facility] ([facility])[address] [address] MCH (RBC) [Entitic mass] 31.9 pg Normal 27.0-33.0 [facility] Comment on above: Performed By: #### L [id number] ####[facility] ([facility])[address] [address] MCV (RBC) [Entitic vol] 100.3 fL High 82.0-98.0 [facility] Comment on above: Performed By: #### L [id number] ####[facility] ([facility])[address] [place] [address] PLATELETS (10*3/UL) IN BLOOD AUTOMATED COUNT 196 10*3/uL Normal 150-400 [facility] Comment on above: Performed By: #### L [id number] ####[facility] ([facility])[address] [place] [address] RBC (Bld) [#/Vol] 3.82 10*6/uL Low 4.20-5.70 [facility] Comment on above: Performed By: #### L [id number] ####[facility] ([facility])[address] [place] [address] WBC (Bld) [#/Vol] 7.67 10*3/uL Normal 4.00-10.60 [facility] Comment on above: Performed By: #### L [id number] ####[facility] ([facility])[address] [place] [address] CONSULTon 03-06-2024 CONSULT Normal [facility] DSon 03-06-2024 DS Normal [facility] NURSNOTEon 03-06-2024 NURSNOTE This RN called and gave report to Receiving nurse at [place]. Nurse denied further questions. Report given to Transport bedside. Transport has discharge packet. Normal [facility] PRO-BNPon 03-06-2024 Natriuretic peptide B (Bld) [Mass/Vol] 800 pg/mL High 0-300 [facility] Comment on above: Result Comment: An a ge-independent cutoff point of 300 pg/ml has a 98% negative predictive value excluding acute heart failure.Test Performed by [facility] [address] [place] [address] - Released 03/06/2024 15:37 Performed By: #### L [id number] ####[facility] [id number] [place] [address] 30on 03-05-2024 30 Normal [facility] 30 Normal [facility] 30 Normal [facility] BASIC METABOLIC PANELon 02-13 Anion gap [Moles/Vol] 9 mmol/L Normal 7-20 [facility] Comment on above: Performed By: #### L [id number] ####[facility] ([facility])[address] [place] [address] Calcium [Mass/Vol] 8.4 mg/dL Low 8.6-10.3 [facility] Comment on above: Performed By: #### L [id number] ####[facility] ([facility])[address] [place] [address] Chloride [Moles/Vol] 104 mmol/L Normal 98-107 [facility] Comment on above: Performed By: #### L [id number] ####[facility] ([facility])[address] [place] [address] CO2 [Moles/Vol] 33 mmol/L High 21-[address] [facility] Comment on above: Performed By: #### L [id number] ####[facility] ([facility])[address] [place] [address] Creatinine [Mass/Vol] 1.02 mg/dL Normal 0.70-1.30 [facility] Comment on above: Performed By: #### L [id number] ####[facility] ([facility])[address] [place] [address] GLOMERULAR FILTRATION RATE ML/MIN/1.73 SQ M.PREDICTED 75.2 mL/min/1.73m*2 Normal >60.0 [facility] Comment on above: Result Comment: The [facility]???s estimated glomerular filtration rate (eGFR) will [...] of individuals. Performed By: #### L [id number] ####[facility] ([facility])[address] [place] [address] Glucose [Mass/Vol] 88 mg/dL Normal 70-100 [facility] Comment on above: Performed By: #### L [id number] ####[facility] ([facility])[address] [place] [address] Potassium [Moles/Vol] 3.8 mmol/L Normal 3.5-5.1 [facility] Comment on above: Performed By: #### L [id number] ####[facility] ([facility])[address] [place] [address] Sodium [Moles/Vol] 142 mmol/L Normal 136-145 [facility] Comment on above: Performed By: #### L [id number] ####[facility] ([facility])[address] [place] [address] Urea nitrogen [Mass/Vol] 25 mg/dL Normal 7-25 [facility] Comment on above: Performed By: #### L [id number] ####[facility] ([facility])[address] [place] [address] UREA NITROGEN/CREATININE (MASS RATIO) IN SER/PLAS 24.5 Normal [facility] Comment on above: Performed By: #### L [id number] ####[facility] ([facility])[address] [place] [address] CBC WITH AUTO DIFFERENTIALon 03-05-2024 Basophils (Bld) [#/Vol] 0.01 10*3/uL Normal 0.00-0.20 [facility] Comment on above: Performed By: #### L [id number] ####[facility] ([facility])[address] [place] [address] Basophils/100 WBC (Bld) 0.1 % Normal 0.0-1.0 [facility] Comment on above: Performed By: #### L [id number] ####[facility] (BEAKER)[address] [place] [address] Eosinophils (Bld) [#/Vol] 0.08 10*3/uL Normal 0.00-0.5 0 [facility] Comment on above: Performed By: #### L [id number] ####[facility] (BEAKER)[address] [place] [address] Eosinophils/100 WBC (Bld) 1.0 % Normal 0.0-6.0 [facility] Comment on above: Performed By: #### L [id number] ####[facility] ([facility])[address] [place] [address] Erythrocyte distribution width (RBC) [Ratio] 13.2 % Normal 11.5-15.0 [facility] Comment on above: Performed By: #### L [id number] ####[facility] ([facility])[address] [place] [address] ERYTHROCYTE MEAN CORPUSCULAR HEMOGLOBIN CONCENTRATION (G/DL) BY AUTOMATED 32.3 g/dL Normal 32.0-35.0 [facility] Comment on above: Performed By: #### L [id number] ####[facility] (BEAKER)[address] [place] [address] Hematocrit (Bld) [Volume fraction] 37.5 % Low 39.0-55.0 [facility] Comment on above: Performed By: #### L [id number] ####[facility] (BEAKER)[address] [place] [address] Hemoglobin (Bld) [Mass/Vol] 12.1 g/dL Low 13.0-17.0 [facility] Comment on above: Performed By: #### L [id number] ####[facility] (BEAKER)[address] [place] [address] Immature granulocytes (Bld) [#/Vol] 0.09 10*3/uL Normal 0.00-0.20 [facility] Comment on above: Performed By: #### L [id number] ####[facility] ([facility])[address] [place] [address] Immature granulocytes/100 WBC (Bld) 1.1 % High 0.0-1.0 [facility] Comment on above: Performed By: #### L [id number] ####[facility] ([facility])[address] [place] [address] Lymphocytes (Bld) [#/Vol] 1.27 10*3/uL Normal 1.20-4.0 0 [facility] Comment on above: Performed By: #### L [id number] ####[facility] ([facility])[address] [place] [address] Lymphocytes/100 WBC (Bld) 15.4 % Low 20.0-45.0 [facility] Comment on above: Performed By: #### L [id number] ####[facility] ([facility])[address] [place] [address] MCH (RBC) [Entitic mass] 31.6 pg Normal 27.0-33.0 [facility] Comment on above: Performed By: #### L [id number] ####[facility] ([facility])[address] [place] [address] MCV (RBC) [Entitic vol] 97.9 fL Normal 82.0-98.0 [facility] Comment on above: Performed By: #### L [id number] ####[facility] ([facility])[address] [facility] [address] Monocytes (Bld) [#/Vol] 0.65 10*3/uL Normal 0.10-1.00 [facility] Comment on above: Performed By: #### L [id number] ####[facility] ([facility])[address] [place] [address] Monocytes/100 WBC (Bld) 7.9 % Normal 5.0-12.0 [facility] Comment on above: Performed By: #### L [id number] ####[facility] ([facility])[address] [place] [address] Neutrophils (Bld) [#/Vol] 6.14 10*3/uL Normal 1.60-7.6 0 [facility] Comment on above: Performed By: #### L [id number] ####[facility] ([facility])[address] [place] [address] Neutrophils/100 WBC (Bld) 74.5 % High 40.0-72.0 [facility] Comment on above: Performed By: #### L [id number] ####[facility] ([facility])[address] [address] NRBC (PER 100 WBCS) BY AUTOMATED COUNT 0.0 % Normal 0 [facility] Comment on above: Performed By: #### L [id number] ####[facility] ([facility])[address] [place] [address] PLATELETS (10*3/UL) IN BLOOD AUTOMATED COUNT 190 10*3/uL Normal 150-400 [facility] Comment on above: Performed By: #### L [id number] ####[facility] ([facility])[address] [place] [address] RBC (Bld) [#/Vol] 3.83 10*6/uL Low 4.20-5.70 [facility] Comment on above: Performed By: #### L [id number] ####[facility] ([facility])[address] [address] WBC (Bld) [#/Vol] 8.24 10*3/uL Normal 4.00-10.60 [facility] Comment on above: Performed By: #### L [id number] ####[facility] ([facility])[address] [place] [address] MAGNESIUMon 03-05-2024 Magnesium [Mass/Vol] 1.8 mg/dL Low 1.9-2.7 [facility] Comment on above: Performed By: #### L [id number] ####[facility] ([facility])[address] [place] [address] PHOSPHORUSon 03-05-2024 Magnesium [Mass/Vol] 3.8 mg/dL Normal 2.5-5.0 [facility] Comment on above: Performed By: #### L [id number] ####[facility] ([facility])[address] [place] [id number] 30on 03-04-2024 30 Normal [facility] 30 The patient is Moderately Stable - Low risk of patient condition declining or worsening The patient's goals for the shift include Rest The clinical goals for the shift include VSS, safety, rest Normal [facility] ANESon 03-04-2024 ANES Normal [facility] APTTon 03-04-2024 ACTIVATED PARTIAL THROMBOPLASTIN TIME IN PPP BY COAGULATION ASSAY 110.7 Seconds High 25.0-35.0 [facility] Comment on above: Result Comment: Clin ical significance of the APTT is questionable in the presence of heparin. Performed By: #### L [id number] ####[facility] ([facility])[address] [place] [address] ACTIVATED PARTIAL THROMBOPLASTIN TIME IN PPP BY COAGULATION ASSAY 135.9 Seconds Critically high 25.0-35.0 [facility] Comment on above: Result Comment: Clin ical significance of the APTT is questionable in the presence of heparin. Performed By: #### L [id number] ####[facility] ([facility])[address] [place] [address] B-TYPE NATRIURETIC PEPTIDEon 03-04-2024 Natriuretic peptide B (Bld) [Mass/Vol] 178 pg/mL High 0-100 [facility] Comment on above: Performed By: #### L [id number] ####[facility] ([facility])[address] [place] [address] BASIC METABOLIC PANELon 02-13 Anion gap [Moles/Vol] 11 mmol/L Normal 7-20 [facility] Comment on above: Performed By: #### L [id number] ####[facility] ([facility])[address] [place] [address] Calcium [Mass/Vol] 8.5 mg/dL Low 8.6-10.3 [facility] Comment on above: Performed By: #### L [id number] ####[facility] ([facility])[address] [place] [address] Chloride [Moles/Vol] 104 mmol/L Normal 98-107 [facility] Comment on above: Performed By: #### L [id number] ####[facility] ([facility])[address] [place] [address] CO2 [Moles/Vol] 29 mmol/L Normal 21-[address] [facility] Comment on above: Performed By: #### L [id number] ####[facility] ([facility])[address] [place] [address] Creatinine [Mass/Vol] 0.94 mg/dL Normal 0.70-1.30 [facility] Comment on above: Performed By: #### L [id number] ####[facility] ([facility])[address] [place] [address] GLOMERULAR FILTRATION RATE ML/MIN/1.73 SQ M.PREDICTED 83.0 mL/min/1.73m*2 Normal >60.0 [facility] Comment on above: Result Comment: The [facility]???s estimated glomerular filtration rate (eGFR) will [...] of individuals. Performed By: #### L [id number] ####[facility] ([facility])[address] [place] [address] Glucose [Mass/Vol] 108 mg/dL High 70-100 [facility] Comment on above: Performed By: #### L [id number] ####[facility] ([facility])[address] [place] [address] Potassium [Moles/Vol] 3.8 mmol/L Normal 3.5-5.1 [facility] Comment on above: Performed By: #### L [id number] ####[facility] ([facility])[address] [place] [address] Sodium [Moles/Vol] 140 mmol/L Normal 136-145 [facility] Comment on above: Performed By: #### L [id number] ####[facility] ([facility])[address] [place] [address] Urea nitrogen [Mass/Vol] 29 mg/dL High 7-25 [facility] Comment on above: Performed By: #### L [id number] ####[facility] ([facility])[address] [place] [address] UREA NITROGEN/CREATININE (MASS RATIO) IN SER/PLAS 30.9 Normal [facility] Comment on above: Performed By: #### L [id number] ####[facility] ([facility])[address] [place] [address] CBC WITH AUTO DIFFERENTIALon 03-04-2024 Basophils (Bld) [#/Vol] 0.02 10*3/uL Normal 0.00-0.20 [facility] Comment on above: Performed By: #### L [id number] ####[facility] ([facility])[address] [place] [address] Basophils/100 WBC (Bld) 0.2 % Normal 0.0-1.0 [facility] Comment on above: Performed By: #### L [id number] ####[facility] ([facility])[address] [place] [address] Eosinophils (Bld) [#/Vol] 0.00 10*3/uL Normal 0.00-0.5 0 [facility] Comment on above: Performed By: #### L [id number] ####[facility] ([facility])[address] [place] [address] Eosinophils/100 WBC (Bld) 0.0 % Normal 0.0-6.0 [facility] Comment on above: Performed By: #### L [id number] ####[facility] ([facility])[address] [place] [address] Erythrocyte distribution width (RBC) [Ratio] 13.2 % Normal 11.5-15.0 [facility] Comment on above: Performed By: #### L [id number] ####[facility] ([facility])[address] [place] [address] ERYTHROCYTE MEAN CORPUSCULAR HEMOGLOBIN CONCENTRATION (G/DL) BY AUTOMATED 31.5 g/dL Low 32.0-35.0 [facility] Comment on above: Performed By: #### L [id number] ####[facility] ([facility])[address] [place] [address] Hematocrit (Bld) [Volume fraction] 38.7 % Low 39.0-55.0 [facility] Comment on above: Performed By: #### L [id number] ####[facility] ([facility])[address] [place] [address] Hemoglobin (Bld) [Mass/Vol] 12.2 g/dL Low 13.0-17.0 [facility] Comment on above: Performed By: #### L [id number] ####[facility] ([facility])[address] [place] [address] Immature granulocytes (Bld) [#/Vol] 0.12 10*3/uL Normal 0.00-0.20 [facility] Comment on above: Performed By: #### L [id number] ####[facility] ([facility])[address] [place] [address] Immature granulocytes/100 WBC (Bld) 1.2 % High 0.0-1.0 [facility] Comment on above: Performed By: #### L [id number] ####[facility] ([facility])[address] [place] [address] Lymphocytes (Bld) [#/Vol] 1.13 10*3/uL Low 1.20-4.0 0 [facility] Comment on above: Performed By: #### L [id number] ####[facility] ([facility])[address] [place] [address] Lymphocytes/100 WBC (Bld) 11.3 % Low 20.0-45.0 [facility] Comment on above: Performed By: #### L [id number] ####[facility] ([facility])[address] [place] [address] MCH (RBC) [Entitic mass] 31.7 pg Normal 27.0-33.0 [facility] Comment on above: Performed By: #### L [id number] ####[facility] ([facility])[address] [place] [address] MCV (RBC) [Entitic vol] 100.5 fL High 82.0-98.0 [facility] Comment on above: Performed By: #### L [id number] ####[facility] ([facility])[address] [place] [address] Monocytes (Bld) [#/Vol] 0.87 10*3/uL Normal 0.10-1.00 [facility] Comment on above: Performed By: #### L [id number] ####[facility] ([facility])[address] [place] [address] Monocytes/100 WBC (Bld) 8.7 % Normal 5.0-12.0 [facility] Comment on above: Performed By: #### L [id number] ####[facility] ([facility])[address] [place] [address] Neutrophils (Bld) [#/Vol] 7.88 10*3/uL High 1.60-7.6 0 [facility] Comment on above: Performed By: #### L [id number] ####[facility] ([facility])[address] [place] [address] Neutrophils/100 WBC (Bld) 78.6 % High 40.0-72.0 [facility] Comment on above: Performed By: #### L [id number] ####[facility] ([facility])[address] [place] [address] NRBC (PER 100 WBCS) BY AUTOMATED COUNT 0.0 % Normal 0 [facility] Comment on above: Performed By: #### L [id number] ####[facility] ([facility])[address] [place] [address] PLATELETS (10*3/UL) IN BLOOD AUTOMATED COUNT 182 10*3/uL Normal 150-400 [facility] Comment on above: Performed By: #### L [id number] ####[facility] ([facility])[address] [place] [place] [address] RBC (Bld) [#/Vol] 3.85 10*6/uL Low 4.20-5.70 [facility] Comment on above: Performed By: #### L [id number] ####[facility] ([facility])[address] [place] [address] WBC (Bld) [#/Vol] 10.02 10*3/uL Normal 4.00-10.60 [facility] Comment on above: Performed By: #### L [id number] ####[facility] ([facility])[address] [place] [address] CONSULTon 03-04-2024 CONSULT Normal [facility] HPon 03-04-2024 HP Normal [facility] MAGNESIUMon 03-04-2024 Magnesium [Mass/Vol] 1.8 mg/dL Low 1.9-2.7 [facility] Comment on above: Performed By: #### L [id number] ####[facility] ([facility])[address] [place] [address] PHOSPHORUSon 03-04-2024 Magnesium [Mass/Vol] 3.1 mg/dL Normal 2.5-5.0 [facility] Comment on above: Performed By: #### L [id number] ####[facility] ([facility])[address] [place] [address] 30on 03-03-2024 30 Normal [facility] 30 Normal [facility] 30 Normal [facility] 30 Normal [facility] APTTon 03-03-2024 ACTIVATED PARTIAL THROMBOPLASTIN TIME IN PPP BY COAGULATION ASSAY 147.8 Seconds Critically high 25.0-35.0 [facility] Comment on above: Result Comment: Clin ical significance of the APTT is questionable in the presence of heparin. Performed By: #### L [id number] ####[facility] ([facility])[address] [place] [address] ACTIVATED PARTIAL THROMBOPLASTIN TIME IN PPP BY COAGULATION ASSAY 124.5 Seconds High 25.0-35.0 [facility] Comment on above: Result Comment: Clin ical significance of the APTT is questionable in the presence of heparin. Performed By: #### L [id number] ####[facility] ([facility])[address] [place] [address] ACTIVATED PARTIAL THROMBOPLASTIN TIME IN PPP BY COAGULATION ASSAY 169.5 Seconds Critically high 25.0-35.0 [facility] Comment on above: Order Comment: Check aPTT every 6 hours while on heparin infusion, or per protocol. Result Comment: Clin ical significance of the APTT is questionable in the presence of heparin. Performed By: #### L [id number] ####[facility] ([facility])[address] [place] [address] BASIC METABOLIC PANELon 02-13 Anion gap [Moles/Vol] 9 mmol/L Normal 7-20 [facility] Comment on above: Performed By: #### L [id number] ####[facility] ([facility])[address] [place] [address] Calcium [Mass/Vol] 8.2 mg/dL Low 8.6-10.3 [facility] Comment on above: Performed By: #### L [id number] ####[facility] ([facility])[address] [place] [address] Chloride [Moles/Vol] 103 mmol/L Normal 98-107 [facility] Comment on above: Performed By: #### L [id number] ####[facility] ([facility])[address] [facility] [address] CO2 [Moles/Vol] 32 mmol/L High 21-[address] [facility] Comment on above: Performed By: #### L [id number] ####[facility] ([facility])[address] [place] [address] Creatinine [Mass/Vol] 0.93 mg/dL Normal 0.70-1.30 [facility] Comment on above: Performed By: #### L [id number] ####[facility] ([facility])[address] [place] [address] GLOMERULAR FILTRATION RATE ML/MIN/1.73 SQ M.PREDICTED 84.0 mL/min/1.73m*2 Normal >60.0 [facility] Comment on above: Result Comment: The [facility]???s estimated glomerular filtration rate (eGFR) will [...] of individuals. Performed By: #### L [id number] ####[facility] ([facility])[address] [place] [address] Glucose [Mass/Vol] 110 mg/dL High 70-100 [facility] Comment on above: Performed By: #### L [id number] ####[facility] ([facility])[address] [place] [address] Potassium [Moles/Vol] 3.3 mmol/L Low 3.5-5.1 [facility] Comment on above: Performed By: #### L [id number] ####[facility] ([facility])[address] [place] [address] Sodium [Moles/Vol] 141 mmol/L Normal 136-145 [facility] Comment on above: Performed By: #### L [id number] ####[facility] ([facility])[address] [place] [address] Urea nitrogen [Mass/Vol] 27 mg/dL High 7-25 [facility] Comment on above: Performed By: #### L [id number] ####[facility] ([facility])[address] [place] [address] UREA NITROGEN/CREATININE (MASS RATIO) IN SER/PLAS 29.0 Normal [facility] Comment on above: Performed By: #### L [id number] ####[facility] ([facility])[address] [place] [address] CBC WITH AUTO DIFFERENTIALon 03-03-2024 Basophils (Bld) [#/Vol] 0.01 10*3/uL Normal 0.00-0.20 [facility] Comment on above: Performed By: #### L [id number] ####[facility] ([facility])[address] [place] [address] Basophils/100 WBC (Bld) 0.1 % Normal 0.0-1.0 [facility] Comment on above: Performed By: #### L [id number] ####[facility] ([facility])[address] [place], [place] [address] Eosinophils (Bld) [#/Vol] 0.00 10*3/uL Normal 0.00-0.5 0 [facility] Comment on above: Performed By: #### L [id number] ####[facility] ([facility])[address] [place], [place] [address] Eosinophils/100 WBC (Bld) 0.0 % Normal 0.0-6.0 [facility] Comment on above: Performed By: #### L [id number] ####[facility] ([facility])[address] [place] [address] Erythrocyte distribution width (RBC) [Ratio] 13.2 % Normal 11.5-15.0 [facility] Comment on above: Performed By: #### L [id number] ####[facility] ([facility])[address] [place] [address] ERYTHROCYTE MEAN CORPUSCULAR HEMOGLOBIN CONCENTRATION (G/DL) BY AUTOMATED 32.1 g/dL Normal 32.0-35.0 [facility] Comment on above: Performed By: #### L [id number] ####[facility] ([facility])[address] [place] [address] Hematocrit (Bld) [Volume fraction] 38.0 % Low 39.0-55.0 [facility] Comment on above: Performed By: #### L [id number] ####[facility] ([facility])[address] [place] [address] Hemoglobin (Bld) [Mass/Vol] 12.2 g/dL Low 13.0-17.0 [facility] Comment on above: Performed By: #### L [id number] ####[facility] ([facility])[address] [place] [address] Immature granulocytes (Bld) [#/Vol] 0.07 10*3/uL Normal 0.00-0.20 [facility] Comment on above: Performed By: #### L [id number] ####[facility] ([facility])[address] [place] [address] Immature granulocytes/100 WBC (Bld) 0.7 % Normal 0.0-1.0 [facility] Comment on above: Performed By: #### L [id number] ####[facility] ([facility])[address] [place], [place] [address] Lymphocytes (Bld) [#/Vol] 1.03 10*3/uL Low 1.20-4.0 0 [facility] Comment on above: Performed By: #### L [id number] ####[facility] ([facility])[address] [place] [address] Lymphocytes/100 WBC (Bld) 10.2 % Low 20.0-45.0 [facility] Comment on above: Performed By: #### L [id number] ####[facility] ([facility])[address] [place] [address] MCH (RBC) [Entitic mass] 31.4 pg Normal 27.0-33.0 [facility] Comment on above: Performed By: #### L [id number] ####[facility] ([facility])[address] [place] [address] MCV (RBC) [Entitic vol] 97.7 fL Normal 82.0-98.0 [facility] Comment on above: Performed By: #### L [id number] ####[facility] ([facility])[address] [place], [place] [address] Monocytes (Bld) [#/Vol] 1.01 10*3/uL High 0.10-1.00 [facility] Comment on above: Performed By: #### L [id number] ####[facility] ([facility])[address] [place] [address] Monocytes/100 WBC (Bld) 10.0 % Normal 5.0-12.0 [facility] Comment on above: Performed By: #### L [id number] ####[facility] ([facility])[address] [place] [address] Neutrophils (Bld) [#/Vol] 8.01 10*3/uL High 1.60-7.6 0 [facility] Comment on above: Performed By: #### L [id number] ####[facility] ([facility])[address] [place] [address] Neutrophils/100 WBC (Bld) 79.0 % High 40.0-72.0 [facility] Comment on above: Performed By: #### L [id number] ####[facility] ([facility])[address] [place] [address] NRBC (PER 100 WBCS) BY AUTOMATED COUNT 0.0 % Normal 0 [facility] Comment on above: Performed By: #### L [id number] ####[facility] ([facility])[address] [place] [address] PLATELETS (10*3/UL) IN BLOOD AUTOMATED COUNT 164 10*3/uL Normal 150-400 [facility] Comment on above: Performed By: #### L [id number] ####[facility] ([facility])[address] [place] [address] RBC (Bld) [#/Vol] 3.89 10*6/uL Low 4.20-5.70 [facility] Comment on above: Performed By: #### L [id number] ####[facility] ([facility])[address] [facility] [address] WBC (Bld) [#/Vol] 10.13 10*3/uL Normal 4.00-10.60 [facility] Comment on above: Performed By: #### L [id number] ####[facility] ([facility])[address] [place] [address] CLOSTRIDIOIDES DIFFICILE DNA AMPLIFICATIONon 03-03-2024 CLOSTRIDIOIDES DIFFICILE (TOXIN A/B) Negative Normal Negative [facility] Comment on above: Order Comment: [...] suspected of having Clostridioides difficile-infection (CDI). The Hagaman C. difficile Assay is intended for use as an aid in diagnosis of CDI. The assay utilizes helicase-dependent amplification (HDA) for the amplification of a highly conserved fragment of the Toxin A gene sequence. Performed By: #### L [id number] ####[facility] ([facility])[address] [place] [address] MAGNESIUMon 03-03-2024 Magnesium [Mass/Vol] 1.9 mg/dL Normal 1.9-2.7 [facility] Comment on above: Performed By: #### L [id number] ####[facility] ([facility])[address] [place] [address] NURSNOTEon 03-03-2024 NURSNOTE Normal [facility] NURSNOTE Normal [facility] PHOSPHORUSon 03-03-2024 Magnesium [Mass/Vol] 2.7 mg/dL Normal 2.5-5.0 [facility] Comment on above: Performed By: #### L [id number] ####[facility] ([facility])[address] [place] [address] 30on 03-02-2024 30 The patient is Moderately Stable - Low risk of patient condition declining or worsening The patient's goals for the shift include Comfort The clinical goals for the shift include VSS, safety Normal [facility] APTTon 03-02-2024 ACTIVATED PARTIAL THROMBOPLASTIN TIME IN PPP BY COAGULATION ASSAY 127.4 Seconds High 25.0-35.0 [facility] Comment on above: Order Comment: Check aPTT every 6 hours while on heparin infusion, or per protocol. Result Comment: Clin ical significance of the APTT is questionable in the presence of heparin. Performed By: #### L [id number] ####[facility] ([facility])[address] [place] [address] ACTIVATED PARTIAL THROMBOPLASTIN TIME IN PPP BY COAGULATION ASSAY 106.1 Seconds High 25.0-35.0 [facility] Comment on above: Order Comment: Check aPTT every 6 hours while on heparin infusion, or per protocol. Result Comment: Clin ical significance of the APTT is questionable in the presence of heparin. Performed By: #### L [id number] ####[facility] ([facility])[address] [place] [address] BASIC METABOLIC PANELon 02-12 Anion gap [Moles/Vol] 10 mmol/L Normal 7-20 [facility] Comment on above: Performed By: #### L [id number] ####[facility] ([facility])[address] [place] [address] Calcium [Mass/Vol] 8.1 mg/dL Low 8.6-10.3 [facility] Comment on above: Performed By: #### L [id number] ####[facility] ([facility])[address] [place] [address] Chloride [Moles/Vol] 104 mmol/L Normal 98-107 [facility] Comment on above: Performed By: #### L [id number] ####[facility] ([facility])[address] [place] [address] CO2 [Moles/Vol] 30 mmol/L Normal 21-[address] [facility] Comment on above: Performed By: #### L [id number] ####[facility] ([facility])[address] [place] [address] Creatinine [Mass/Vol] 0.97 mg/dL Normal 0.70-1.30 [facility] Comment on above: Performed By: #### L [id number] ####[facility] ([facility])[address] [place] [address] GLOMERULAR FILTRATION RATE ML/MIN/1.73 SQ M.PREDICTED 79.9 mL/min/1.73m*2 Normal >60.0 [facility] Comment on above: Result Comment: The [facility]???s estimated glomerular filtration rate (eGFR) will [...] of individuals. Performed By: #### L [id number] ####[facility] ([facility])[address] [place] [address] Glucose [Mass/Vol] 136 mg/dL High 70-100 [facility] Comment on above: Performed By: #### L [id number] ####[facility] ([facility])[address] [place] [address] Potassium [Moles/Vol] 3.0 mmol/L Low 3.5-5.1 [facility] Comment on above: Performed By: #### L [id number] ####[facility] ([facility])[address] [place] [address] Sodium [Moles/Vol] 141 mmol/L Normal 136-145 [facility] Comment on above: Performed By: #### L [id number] ####[facility] ([facility])[address] [place] [address] Urea nitrogen [Mass/Vol] 37 mg/dL High 7-25 [facility] Comment on above: Performed By: #### L [id number] ####[facility] ([facility])[address] [place] [address] UREA NITROGEN/CREATININE (MASS RATIO) IN SER/PLAS 38.1 Normal [facility] Comment on above: Performed By: #### L [id number] ####[facility] ([facility])[address] [place] [address] CBC WITH AUTO DIFFERENTIALon 03-02-2024 Basophils (Bld) [#/Vol] 0.01 10*3/uL Normal 0.00-0.20 [facility] Comment on above: Performed By: #### L [id number] ####[facility] ([facility])[address] [place] [address] Basophils/100 WBC (Bld) 0.1 % Normal 0.0-1.0 [facility] Comment on above: Performed By: #### L [id number] ####[facility] ([facility])[address] [place] [address] Eosinophils (Bld) [#/Vol] 0.00 10*3/uL Normal 0.00-0.5 0 [facility] Comment on above: Performed By: #### L [id number] ####[facility] ([facility])[address] [place] [address] Eosinophils/100 WBC (Bld) 0.0 % Normal 0.0-6.0 [facility] Comment on above: Performed By: #### L [id number] ####[facility] ([facility])[address] [place] [address] Erythrocyte distribution width (RBC) [Ratio] 12.9 % Normal 11.5-15.0 [facility] Comment on above: Performed By: #### L [id number] ####[facility] ([facility])[address] [place] [address] ERYTHROCYTE MEAN CORPUSCULAR HEMOGLOBIN CONCENTRATION (G/DL) BY AUTOMATED 32.3 g/dL Normal 32.0-35.0 [facility] Comment on above: Performed By: #### L [id number] ####[facility] ([facility])[address] [place] [address] Hematocrit (Bld) [Volume fraction] 36.8 % Low 39.0-55.0 [facility] Comment on above: Performed By: #### L [id number] ####[facility] ([facility])[address] [place] [address] Hemoglobin (Bld) [Mass/Vol] 11.9 g/dL Low 13.0-17.0 [facility] Comment on above: Performed By: #### L [id number] ####[facility] ([facility])[address] [place] [address] Immature granulocytes (Bld) [#/Vol] 0.05 10*3/uL Normal 0.00-0.20 [facility] Comment on above: Performed By: #### L [id number] ####[facility] ([facility])[address] [place] [address] Immature granulocytes/100 WBC (Bld) 0.7 % Normal 0.0-1.0 [facility] Comment on above: Performed By: #### L [id number] ####[facility] ([facility])[address] [place] [address] Lymphocytes (Bld) [#/Vol] 0.58 10*3/uL Low 1.20-4.0 0 [facility] Comment on above: Performed By: #### L [id number] ####[facility] ([facility])[address] [place] [address] Lymphocytes/100 WBC (Bld) 7.8 % Low 20.0-45.0 [facility] Comment on above: Performed By: #### L [id number] ####[facility] ([facility])[address] [place] [address] MCH (RBC) [Entitic mass] 32.1 pg Normal 27.0-33.0 [facility] Comment on above: Performed By: #### L [id number] ####[facility] ([facility])[address] [place] [address] MCV (RBC) [Entitic vol] 99.2 fL High 82.0-98.0 [facility] Comment on above: Performed By: #### L [id number] ####[facility] ([facility])[address] [place] [address] Monocytes (Bld) [#/Vol] 0.56 10*3/uL Normal 0.10-1.00 [facility] Comment on above: Performed By: #### L [id number] ####[facility] ([facility])[address] [place] [address] Monocytes/100 WBC (Bld) 7.5 % Normal 5.0-12.0 [facility] Comment on above: Performed By: #### L [id number] ####[facility] ([facility])[address] [place] [address] Neutrophils (Bld) [#/Vol] 6.28 10*3/uL Normal 1.60-7.6 0 [facility] Comment on above: Performed By: #### L [id number] ####[facility] ([facility])[address] [place] [address] Neutrophils/100 WBC (Bld) 83.9 % High 40.0-72.0 [facility] Comment on above: Performed By: #### L [id number] ####[facility] ([facility])[address] [place] [address] NRBC (PER 100 WBCS) BY AUTOMATED COUNT 0.0 % Normal 0 [facility] Comment on above: Performed By: #### L [id number] ####[facility] ([facility])[address] [place] [address] PLATELETS (10*3/UL) IN BLOOD AUTOMATED COUNT 159 10*3/uL Normal 150-400 [facility] Comment on above: Performed By: #### L [id number] ####[facility] ([facility])[address] [place] [address] RBC (Bld) [#/Vol] 3.71 10*6/uL Low 4.20-5.70 [facility] Comment on above: Performed By: #### L [id number] ####[facility] ([facility])[address] [place] [address] WBC (Bld) [#/Vol] 7.48 10*3/uL Normal 4.00-10.60 [facility] Comment on above: Performed By: #### L [id number] ####[facility] ([facility])[address] [place] [address] MAGNESIUMon 03-02-2024 Magnesium [Mass/Vol] 1.9 mg/dL Normal 1.9-2.7 [facility] Comment on above: Performed By: #### L [id number] ####[facility] ([facility])[address] [place] [address] NURSNOTEon 03-02-2024 NURSNOTE Normal [facility] PHOSPHORUSon 03-02-2024 Magnesium [Mass/Vol] 3.4 mg/dL Normal 2.5-5.0 [facility] Comment on above: Performed By: #### L [id number] ####[facility] ([facility])[address] [place] [address] VENOUS BLOOD GAS WITH IONIZE D CALCIUMon 03-02-2024 Base excess Calc (BldV) [Moles/Vol] 4.3 mmol/L Normal [facility] Comment on above: Performed By: #### L [id number] ####[facility]PIR[facility] [id number] [place] [address] [facility] CALCIUM IONIZED (MMOL/L) IN BLOOD 1.19 mmol/L Normal 1.15-1.33 [facility] Comment on above: Performed By: #### L [id number] ####[facility] RESPIR[facility] [id number] [place] [address] [facility] CO2 (BldV) [Partial pressure] 47 mm[Hg] Normal 40-50 [facility] Comment on above: Performed By: #### L [id number] ####[facility] RESPIRATORY [id number] [place] [address] [facility] HCO3 (Bld) [Moles/Vol] 29.8 mmol/L Normal [facility] Comment on above: Performed By: #### L [id number] ####[facility] RESPIRATORY [id number] [place] [address] [facility] Oxygen (BldV) [Partial pressure] 46 mm[Hg] High 35-45 [facility] Comment on above: Performed By: #### L [id number] ####[facility] RESPIRATORY [id number] [place] [address] [facility] OXYGEN SATURATION (%) IN VENOUS BLOOD 76.1 % High 65.0-75.0 [facility] Comment on above: Performed By: #### L [id number] ####[facility] RESPIRATORY [id number] [place] [address] [facility] PH OF VENOUS BLOOD 7.41 Normal 7.31-7.41 [facility] Comment on above: Performed By: #### L [id number] ####[facility] RESPIRATORY [id number] [place] [address] [place] 30on 03-01-2024 30 Normal [facility] BASIC METABOLIC PANELon 02-12 Anion gap [Moles/Vol] 10 mmol/L Normal 7-20 [facility] Comment on above: Performed By: #### L [id number] ####[facility] ([facility])[address] [place] [address] Calcium [Mass/Vol] 8.3 mg/dL Low 8.6-10.3 [facility] Comment on above: Performed By: #### L [id number] ####[facility] ([facility])[address] [place] [address] Chloride [Moles/Vol] 104 mmol/L Normal 98-107 [facility] Comment on above: Performed By: #### L [id number] ####[facility] ([facility])[address] [place] [address] CO2 [Moles/Vol] 29 mmol/L Normal 21-[address] [facility] Comment on above: Performed By: #### L [id number] ####[facility] ([facility])[address] [place] [address] Creatinine [Mass/Vol] 0.99 mg/dL Normal 0.70-1.30 [facility] Comment on above: Performed By: #### L [id number] ####[facility] ([facility])[address] [place] [address] GLOMERULAR FILTRATION RATE ML/MIN/1.73 SQ M.PREDICTED 78.0 mL/min/1.73m*2 Normal >60.0 [facility] Comment on above: Result Comment: The [facility]???s estimated glomerular filtration rate (eGFR) will [...] of individuals. Performed By: #### L [id number] ####[facility] ([facility])[address] [place] [address] Glucose [Mass/Vol] 156 mg/dL High 70-100 [facility] Comment on above: Performed By: #### L [id number] ####[facility] ([facility])[address] [place] [address] Potassium [Moles/Vol] 3.4 mmol/L Low 3.5-5.1 [facility] Comment on above: Performed By: #### L [id number] ####[facility] ([facility])[address] [place] [address] Sodium [Moles/Vol] 140 mmol/L Normal 136-145 [facility] Comment on above: Performed By: #### L [id number] ####[facility] ([facility])[address] [place] [address] Urea nitrogen [Mass/Vol] 35 mg/dL High 7-25 [facility] Comment on above: Performed By: #### L [id number] ####[facility] ([facility])[address] [place] [address] UREA NITROGEN/CREATININE (MASS RATIO) IN SER/PLAS 35.4 Normal [facility] Comment on above: Performed By: #### L [id number] ####[facility] ([facility])[address] [place] [address] BLOOD CULTUREon 03-01-2024 Bacteria identified Cx Nom (Bld) No growth at 5 days Normal [facility] Comment on above: Performed By: #### L [id number] ####[facility] ([facility])[address] [place] [address] CBC WITH AUTO DIFFERENTIALon 03-01-2024 Basophils (Bld) [#/Vol] 0.01 10*3/uL Normal 0.00-0.20 [facility] Comment on above: Performed By: #### L [id number] ####[facility] ([facility])[address] [place] [address] Basophils/100 WBC (Bld) 0.1 % Normal 0.0-1.0 [facility] Comment on above: Performed By: #### L [id number] ####[facility] ([facility])[address] [place] [address] Eosinophils (Bld) [#/Vol] 0.00 10*3/uL Normal 0.00-0.5 0 [facility] Comment on above: Performed By: #### L [id number] ####[facility] ([facility])[address] [place] [address] Eosinophils/100 WBC (Bld) 0.0 % Normal 0.0-6.0 [facility] Comment on above: Performed By: #### L [id number] ####[facility] ([facility])[address] [place] [address] Erythrocyte distribution width (RBC) [Ratio] 12.9 % Normal 11.5-15.0 [facility] Comment on above: Performed By: #### L [id number] ####[facility] ([facility])[address] [place] [address] ERYTHROCYTE MEAN CORPUSCULAR HEMOGLOBIN CONCENTRATION (G/DL) BY AUTOMATED 32.1 g/dL Normal 32.0-35.0 [facility] Comment on above: Performed By: #### L [id number] ####[facility] ([facility])[address] [place] [address] Hematocrit (Bld) [Volume fraction] 38.9 % Low 39.0-55.0 [facility] Comment on above: Performed By: #### L [id number] ####[facility] ([facility])[address] [place] [address] Hemoglobin (Bld) [Mass/Vol] 12.5 g/dL Low 13.0-17.0 [facility] Comment on above: Performed By: #### L [id number] ####[facility] ([facility])[address] [place] [address] Immature granulocytes (Bld) [#/Vol] 0.05 10*3/uL Normal 0.00-0.20 [facility] Comment on above: Performed By: #### L [id number] ####[facility] ([facility])[address] [place] [address] Immature granulocytes/100 WBC (Bld) 0.5 % Normal 0.0-1.0 [facility] Comment on above: Performed By: #### L [id number] ####[facility] ([facility])[address] [place] [address] Lymphocytes (Bld) [#/Vol] 0.42 10*3/uL Low 1.20-4.0 0 [facility] Comment on above: Performed By: #### L [id number] ####[facility] ([facility])[address] [place] [address] Lymphocytes/100 WBC (Bld) 4.2 % Low 20.0-45.0 [facility] Comment on above: Performed By: #### L [id number] ####[facility] ([facility])[address] [place] [address] MCH (RBC) [Entitic mass] 31.9 pg Normal 27.0-33.0 [facility] Comment on above: Performed By: #### L [id number] ####[facility] ([facility])[address] [place] [address] MCV (RBC) [Entitic vol] 99.2 fL High 82.0-98.0 [facility] Comment on above: Performed By: #### L [id number] ####[facility] ([facility])[address] [place] [address] Monocytes (Bld) [#/Vol] 0.45 10*3/uL Normal 0.10-1.00 [facility] Comment on above: Performed By: #### L [id number] ####[facility] ([facility])[address] [place] [address] Monocytes/100 WBC (Bld) 4.5 % Low 5.0-12.0 [facility] Comment on above: Performed By: #### L [id number] ####[facility] ([facility])[address] [place] [address] Neutrophils (Bld) [#/Vol] 9.11 10*3/uL High 1.60-7.6 0 [facility] Comment on above: Performed By: #### L [id number] ####[facility] ([facility])[address] [place] [address] Neutrophils/100 WBC (Bld) 90.7 % High 40.0-72.0 [facility] Comment on above: Performed By: #### L [id number] ####[facility] ([facility])[address] [place] [address] NRBC (PER 100 WBCS) BY AUTOMATED COUNT 0.0 % Normal 0 [facility] Comment on above: Performed By: #### L [id number] ####[facility] ([facility])[address] [place] [address] PLATELETS (10*3/UL) IN BLOOD AUTOMATED COUNT 165 10*3/uL Normal 150-400 [facility] Comment on above: Performed By: #### L [id number] ####[facility] ([facility])[address] [place] [address] RBC (Bld) [#/Vol] 3.92 10*6/uL Low 4.20-5.70 [facility] Comment on above: Performed By: #### L [id number] ####[facility] ([facility])[address] [place] [address] WBC (Bld) [#/Vol] 10.04 10*3/uL Normal 4.00-10.60 [facility] Comment on above: Performed By: #### L [id number] ####[facility] ([facility])[address] [place] [address] Basophils (Bld) [#/Vol] 0.01 10*3/uL Normal 0.00-0.20 [facility] Comment on above: Performed By: #### L [id number] ####[facility] ([facility])[address] [place] [address] Basophils/100 WBC (Bld) 0.1 % Normal 0.0-1.0 [facility] Comment on above: Performed By: #### L [id number] ####[facility] ([facility])[address] [place] [address] Eosinophils (Bld) [#/Vol] 0.00 10*3/uL Normal 0.00-0.5 0 [facility] Comment on above: Performed By: #### L [id number] ####[facility] ([facility])[address] [place] [address] Eosinophils/100 WBC (Bld) 0.0 % Normal 0.0-6.0 [facility] Comment on above: Performed By: #### L [id number] ####[facility] ([facility])[address] [place] [address] Erythrocyte distribution width (RBC) [Ratio] 12.8 % Normal 11.5-15.0 [facility] Comment on above: Performed By: #### L [id number] ####[facility] ([facility])[address] [place] [address] ERYTHROCYTE MEAN CORPUSCULAR HEMOGLOBIN CONCENTRATION (G/DL) BY AUTOMATED 31.9 g/dL Low 32.0-35.0 [facility] Comment on above: Performed By: #### L [id number] ####[facility] ([facility])[address] [place] [address] Hematocrit (Bld) [Volume fraction] 37.9 % Low 39.0-55.0 [facility] Comment on above: Performed By: #### L [id number] ####[facility] ([facility])[address] [place] [address] Hemoglobin (Bld) [Mass/Vol] 12.1 g/dL Low 13.0-17.0 [facility] Comment on above: Performed By: #### L [id number] ####[facility] ([facility])[address] [place] [address] Immature granulocytes (Bld) [#/Vol] 0.05 10*3/uL Normal 0.00-0.20 [facility] Comment on above: Performed By: #### L [id number] ####[facility] ([facility])[address] [place] [address] Immature granulocytes/100 WBC (Bld) 0.7 % Normal 0.0-1.0 [facility] Comment on above: Performed By: #### L [id number] ####[facility] ([facility])[address] [place] [address] Lymphocytes (Bld) [#/Vol] 0.43 10*3/uL Low 1.20-4.0 0 [facility] Comment on above: Performed By: #### L [id number] ####[facility] ([facility])[address] [place] [address] Lymphocytes/100 WBC (Bld) 6.0 % Low 20.0-45.0 [facility] Comment on above: Performed By: #### L [id number] ####[facility] ([facility])[address] [place] [address] MCH (RBC) [Entitic mass] 32.1 pg Normal 27.0-33.0 [facility] Comment on above: Performed By: #### L [id number] ####[facility] (BE[facility]ER)[address] [place] [address] MCV (RBC) [Entitic vol] 100.5 fL High 82.0-98.0 [facility] Comment on above: Performed By: #### L [id number] ####[facility] ([facility]ER)[address] [place] [address] Monocytes (Bld) [#/Vol] 0.26 10*3/uL Normal 0.10-1.00 [facility] Comment on above: Performed By: #### L [id number] ####[facility] ([facility])[address] [place] [address] Monocytes/100 WBC (Bld) 3.6 % Low 5.0-12.0 [facility] Comment on above: Performed By: #### L [id number] ####[facility] ([facility])[address] [place] [address] Neutrophils (Bld) [#/Vol] 6.39 10*3/uL Normal 1.60-7.6 0 [facility] Comment on above: Performed By: #### L [id number] ####[facility] ([facility])[address] [place] [address] Neutrophils/100 WBC (Bld) 89.6 % High 40.0-72.0 [facility] Comment on above: Performed By: #### L [id number] ####[facility] ([facility])[address] [place] [address] NRBC (PER 100 WBCS) BY AUTOMATED COUNT 0.0 % Normal 0 [facility] Comment on above: Performed By: #### L [id number] ####[facility] ([facility])[address] [place] [address] PLATELETS (10*3/UL) IN BLOOD AUTOMATED COUNT 161 10*3/uL Normal 150-400 [facility] Comment on above: Performed By: #### L [id number] ####[facility] ([facility])[address] [place] [address] RBC (Bld) [#/Vol] 3.77 10*6/uL Low 4.20-5.70 [facility] Comment on above: Performed By: #### L [id number] ####[facility] ([facility])[address] [place] [address] WBC (Bld) [#/Vol] 7.14 10*3/uL Normal 4.00-10.60 [facility] Comment on above: Performed By: #### L [id number] ####[facility] ([facility])[address] [place] [address] CONSULTon 03-01-2024 CONSULT Normal [facility] MAGNESIUMon 03-01-2024 Magnesium [Mass/Vol] 2.1 mg/dL Normal 1.9-2.7 [facility] Comment on above: Performed By: #### L [id number] ####[facility] ([facility])[address] [place] [address] PHOSPHORUSon 03-01-2024 Magnesium [Mass/Vol] 2.3 mg/dL Low 2.5-5.0 [facility] Comment on above: Performed By: #### L [id number] ####[facility] ([facility])[address] [place] [address] PLATELET COUNTon 03-01-2024 PLATELETS (10*3/UL) IN BLOOD AUTOMATED COUNT 157 10*3/uL Normal 150-400 [facility] Comment on above: Performed By: #### L [id number] ####[facility] ([facility])[address] [place] [address] URINALYSIS WITH MICROSCOPICo n 03-01-2024 BILIRUBIN, TOTAL PRESENCE IN URINE Negative Normal Negative [facility] Comment on above: Performed By: #### L [id number] ####[facility] ([facility])[address] [place] [address] Clarity (U) Turbid Abnormal Clear [facility] Comment on above: Performed By: #### L [id number] ####[facility] ([facility])[address] [place] [address] Color (U) Yellow Normal Colorless, Yellow, Light-Cayey ow [facility] Comment on above: Performed By: #### L [id number] ####[facility] ([facility])[address] [place] [address] GLUCOSE (MG/DL) IN URINE Normal Normal Normal [facility] Comment on above: Performed By: #### L [id number] ####[facility] ([facility])[address] [place] [address] HEMOGLOBIN PRESENCE IN URINE Moderate Abnormal Negative [facility] Comment on above: Performed By: #### L [id number] ####[facility] ([facility])[address] [place] [address] Ketones Ql (U) Negative Normal Negative [facility] Comment on above: Performed By: #### L [id number] ####[facility] ([facility])[address] [place], [place] [address] LEUKOCYTE ESTERASE PRESENCE IN URINE BY TEST STRIP Large Abnormal Negative [facility] Comment on above: Performed By: #### L [id number] ####[facility] ([facility])[address], [place] [address] MUCUS (#/LPF) IN URINE SEDIMENT Few Normal None Seen, Occasional , Few [facility] Comment on above: Performed By: #### L [id number] ####[facility] ([facility])[address] [place] [address] NITRITE PRESENCE IN URINE Negative Normal Negative [facility] Comment on above: Performed By: #### L [id number] ####[facility] ([facility])[address] [place], [place] [address] pH (U) 5.5 [pH] Normal 5.0-8.0 [facility] Comment on above: Performed By: #### L [id number] ####[facility] [facility])[address] [place], [place] [address] Protein (U) [Mass/Vol] Negative Normal [facility] Comment on above: Performed By: #### L [id number] ####[facility] ([facility])[address] [place], [place] [address] RBC (#/HPF) IN URINE SEDIMENT >20 Abnormal None Seen, 0-2 [facility] Comment on above: Performed By: #### L [id number] ####[facility] ([facility])[address] [place] [address] Specific gravity (U) [Rel density] 1.012 Normal 1.010-1.03 0 [facility] Comment on above: Performed By: #### L [id number] ####[facility] ([facility])[address] [place] [address] SQUAMOUS EPITHELIAL CELLS (#/LPF) IN URINE SEDIMENT Many Abnormal None Seen, Occasional , Few [facility] Comment on above: Performed By: #### L [id number] ####[facility] ([facility])[address] [place] [address] UROBILINOGEN (MG/DL) IN URINE Normal Normal Normal [facility] Comment on above: Performed By: #### L [id number] ####[facility] ([facility])[address] [place] [address] WBC (LEUKOCYTE) (#/HPF) IN URINE SEDIMENT >50 Abnormal None Seen, 0-2 [facility] Comment on above: Performed By: #### L [id number] ####[facility] ([facility])[address] [place] [address] WBC (LEUKOCYTE) CLUMPS (#/HPF) IN URINE SEDIMENT Present Abnormal None Seen [facility] Comment on above: Performed By: #### L [id number] ####[facility] ([facility])[address] [place] [address] URINE CULTURE, ROUTINEon Ampicillin [Susc] 2 ug/ml Susceptible [facility] Comment on above: Performed By: #### L [id number] ####[facility] ([facility])[address] [place] [address] Nitrofurantoin [Susc] <=16 Susceptible [facility] Comment on above: Performed By: #### L [id number] ####[facility] ([facility])[address] [place] [address] Vancomycin [Susc] 1 ug/ml Susceptible [facility] Comment on above: Performed By: #### L [id number] ####[facility] ([facility])[address] [place] [address] B-TYPE NATRIURETIC PEPTIDEon 02-29-2024 Natriuretic peptide B (Bld) [Mass/Vol] 524 pg/mL High 0-100 [facility] Comment on above: Performed By: #### L [id number] ####[facility] ([facility])[address] [place] [address] BASIC METABOLIC PANELon 02-12 Anion gap [Moles/Vol] 10 mmol/L Normal 7-20 [facility] Comment on above: Performed By: #### L [id number] ####[facility] ([facility])[address] [place] [address] Calcium [Mass/Vol] 8.6 mg/dL Normal 8.6-10.3 [facility] Comment on above: Performed By: #### L [id number] ####[facility] ([facility])[address] [place] [address] Chloride [Moles/Vol] 104 mmol/L Normal 98-107 [facility] Comment on above: Performed By: #### L [id number] ####[facility] ([facility])[address] [place] [address] CO2 [Moles/Vol] 30 mmol/L Normal 21-[address] [facility] Comment on above: Performed By: #### L [id number] ####[facility] ([facility])[address] [place] [address] Creatinine [Mass/Vol] 0.99 mg/dL Normal 0.70-1.30 [facility] Comment on above: Performed By: #### L [id number] ####[facility] ([facility])[address] [place] [address] GLOMERULAR FILTRATION RATE ML/MIN/1.73 SQ M.PREDICTED 78.0 mL/min/1.73m*2 Normal >60.0 [facility] Comment on above: Result Comment: The [facility]???s estimated glomerular filtration rate (eGFR) will [...] of individuals. Performed By: #### L [id number] ####[facility] ([facility])[address] [place] [address] Glucose [Mass/Vol] 134 mg/dL High 70-100 [facility] Comment on above: Performed By: #### L [id number] ####[facility] ([facility])[address] [place] [address] Potassium [Moles/Vol] 3.4 mmol/L Low 3.5-5.1 [facility] Comment on above: Performed By: #### L [id number] ####[facility] ([facility])[address] [place] [address] Sodium [Moles/Vol] 141 mmol/L Normal 136-145 [facility] Comment on above: Performed By: #### L [id number] ####[facility] ([facility])[address] [place] [address] Urea nitrogen [Mass/Vol] 24 mg/dL Normal 7-25 [facility] Comment on above: Performed By: #### L [id number] ####[facility] ([facility])[address] [place] [address] UREA NITROGEN/CREATININE (MASS RATIO) IN SER/PLAS 24.2 Normal [facility] Comment on above: Performed By: #### L [id number] ####[facility] ([facility])[address] [place] [address] Anion gap [Moles/Vol] 10 mmol/L Normal 7-20 [facility] Comment on above: Performed By: #### L [id number] ####[facility] ([facility])[address] [place] [address] Calcium [Mass/Vol] 8.4 mg/dL Low 8.6-10.3 [facility] Comment on above: Performed By: #### L [id number] ####[facility] ([facility])[address] [place] [address] Chloride [Moles/Vol] 105 mmol/L Normal 98-107 [facility] Comment on above: Performed By: #### L [id number] ####[facility] ([facility])[address] [place] [address] CO2 [Moles/Vol] 28 mmol/L Normal 21-[address] [facility] Comment on above: Performed By: #### L [id number] ####[facility] ([facility])[address] [place] [address] Creatinine [Mass/Vol] 1.06 mg/dL Normal 0.70-1.30 [facility] Comment on above: Performed By: #### L [id number] ####[facility] ([facility])[address] [place] [address] GLOMERULAR FILTRATION RATE ML/MIN/1.73 SQ M.PREDICTED 71.8 mL/min/1.73m*2 Normal >60.0 [facility] Comment on above: Result Comment: The [facility]???s estimated glomerular filtration rate (eGFR) will [...] of individuals. Performed By: #### L [id number] ####[facility] ([facility])[address] [place] [address] Glucose [Mass/Vol] 141 mg/dL High 70-100 [facility] Comment on above: Performed By: #### L [id number] ####[facility] ([facility])[address] [place] [address] Potassium [Moles/Vol] 3.5 mmol/L Normal 3.5-5.1 [facility] Comment on above: Performed By: #### L [id number] ####[facility] ([facility])[address] [place] [address] Sodium [Moles/Vol] 139 mmol/L Normal 136-145 [facility] Comment on above: Performed By: #### L [id number] ####[facility] ([facility])[address] [place] [address] Urea nitrogen [Mass/Vol] 23 mg/dL Normal 7-25 [facility] Comment on above: Performed By: #### L [id number] ####[facility] ([facility])[address] [place] [address] UREA NITROGEN/CREATININE (MASS RATIO) IN SER/PLAS 21.7 Normal [facility] Comment on above: Performed By: #### L [id number] ####[facility] ([facility])[address] [place] [address] CBC WITH AUTO DIFFERENTIALon 02-29-2024 Basophils (Bld) [#/Vol] 0.01 10*3/uL Normal 0.00-0.20 [facility] Comment on above: Performed By: #### L [id number] ####[facility] ([facility])[address] [place] [address] Basophils/100 WBC (Bld) 0.2 % Normal 0.0-1.0 [facility] Comment on above: Performed By: #### L [id number] ####[facility] ([facility])[address] [place] [address] Eosinophils (Bld) [#/Vol] 0.00 10*3/uL Normal 0.00-0.5 0 [facility] Comment on above: Performed By: #### L [id number] ####[facility] ([facility])[address] [place] [address] Eosinophils/100 WBC (Bld) 0.0 % Normal 0.0-6.0 [facility] Comment on above: Performed By: #### L [id number] ####[facility] ([facility])[address] [place] [address] Erythrocyte distribution width (RBC) [Ratio] 12.8 % Normal 11.5-15.0 [facility] Comment on above: Performed By: #### L [id number] ####[facility] ([facility])[address] [place] [address] ERYTHROCYTE MEAN CORPUSCULAR HEMOGLOBIN CONCENTRATION (G/DL) BY AUTOMATED 32.0 g/dL Normal 32.0-35.0 [facility] Comment on above: Performed By: #### L [id number] ####[facility] ([facility])[address] [place] [address] Hematocrit (Bld) [Volume fraction] 38.7 % Low 39.0-55.0 [facility] Comment on above: Performed By: #### L [id number] ####[facility] ([facility])[address] [place] [address] Hemoglobin (Bld) [Mass/Vol] 12.4 g/dL Low 13.0-17.0 [facility] Comment on above: Performed By: #### L [id number] ####[facility] ([facility])[address] [place] [address] Immature granulocytes (Bld) [#/Vol] 0.04 10*3/uL Normal 0.00-0.20 [facility] Comment on above: Performed By: #### L [id number] ####[facility] ([facility])[address] [place] [address] Immature granulocytes/100 WBC (Bld) 0.7 % Normal 0.0-1.0 [facility] Comment on above: Performed By: #### L [id number] ####[facility] ([facility])[address] [place] [address] IMMATURE PLATELET FRACTION % 4.9 % Normal 0.8-6.3 [facility] Comment on above: Performed By: #### L [id number] ####[facility] ([facility])[address] [place] [address] Lymphocytes (Bld) [#/Vol] 0.38 10*3/uL Low 1.20-4.0 0 [facility] Comment on above: Performed By: #### L [id number] ####[facility] ([facility])[address] [place] [address] Lymphocytes/100 WBC (Bld) 6.2 % Low 20.0-45.0 [facility] Comment on above: Performed By: #### L [id number] ####[facility] ([facility])[address] [place] [address] MCH (RBC) [Entitic mass] 32.0 pg Normal 27.0-33.0 [facility] Comment on above: Performed By: #### L [id number] ####[facility] ([facility])[address] [place] [address] MCV (RBC) [Entitic vol] 100.0 fL High 82.0-98.0 [facility] Comment on above: Performed By: #### L [id number] ####[facility] ([facility])[address] [place] [address] Monocytes (Bld) [#/Vol] 0.35 10*3/uL Normal 0.10-1.00 [facility] Comment on above: Performed By: #### L [id number] ####[facility] ([facility])[address] [place] [address] Monocytes/100 WBC (Bld) 5.7 % Normal 5.0-12.0 [facility] Comment on above: Performed By: #### L [id number] ####[facility] ([facility])[address] [place] [address] Neutrophils (Bld) [#/Vol] 5.36 10*3/uL Normal 1.60-7.6 0 [facility] Comment on above: Performed By: #### L [id number] ####[facility] ([facility])[address] [facility] [address] Neutrophils/100 WBC (Bld) 87.2 % High 40.0-72.0 [facility] Comment on above: Performed By: #### L [id number] ####[facility] ([facility])[address] [place] [address] NRBC (PER 100 WBCS) BY AUTOMATED COUNT 0.0 % Normal 0 [facility] Comment on above: Performed By: #### L [id number] ####[facility] ([facility])[address] [place] [address] PLATELETS (10*3/UL) IN BLOOD AUTOMATED COUNT 122 10*3/uL Low 150-400 [facility] Comment on above: Performed By: #### L [id number] ####[facility] ([facility])[address] [place] [address] RBC (Bld) [#/Vol] 3.87 10*6/uL Low 4.20-5.70 [facility] Comment on above: Performed By: #### L [id number] ####[facility] ([facility])[address] [facility] [address] WBC (Bld) [#/Vol] 6.14 10*3/uL Normal 4.00-10.60 [facility] Comment on above: Performed By: #### L [id number] ####[facility] ([facility])[address] [place] [address] CONSULTon 02-29-2024 CONSULT Normal [facility] LEGIONELLA ANTIGEN, URINEon 02-29-2024 LEGIONELLA AG, UR Negative Normal NEG [facility] Comment on above: Result Comment: L. p neumophila serogroup 1 antigen not detected.A negative result does not exclude infection with Leginella pnemophila serogroup 1 nor does it rule out other microbial-caused respiratory infections of disease caused by other serogroups of Legionella pneumophila.Test Performed by [employer] [address] [place] [id number] - Released 03/01/2024 15:07 Performed By: #### L [id number] ####[facility] [id number] [place] [address] MAGNESIUMon 02-29-2024 Magnesium [Mass/Vol] 2.0 mg/dL Normal 1.9-2.7 [facility] Comment on above: Performed By: #### L [id number] ####[facility] ([facility])[address] [place] [address] Magnesium [Mass/Vol] 1.9 mg/dL Normal 1.9-2.7 [facility] Comment on above: Performed By: #### L [id number] ####[facility] ([facility])[address] [place] [address] PHOSPHORUSon 02-29-2024 Magnesium [Mass/Vol] 2.4 mg/dL Low 2.5-5.0 [facility] Comment on above: Performed By: #### L [id number] ####[facility] ([facility])[address] [facility] [address] RESPIRATORY VIRUS PCR PANELo n 02-29-2024 ADENOVIRUS DETECTION BY PCR Not detected Normal Not Detected [facility] Comment on above: Order Comment: Testi ng methodology is a multiplexed nucleic acid test intended for the simultaneous qualitative detection and differentiation of nucleic acids from multiple viral and bacterial respiratory organisms in nasopharyngeal swabs (TRANSPORT NURSE). Performed By: #### L [id number] ####[facility] ([facility])[address] [place] [address] B. PARAPERTUSSIS DNA Not detected Normal Not Detected [facility] Comment on above: Order Comment: Testi ng methodology is a multiplexed nucleic acid test intended for the simultaneous qualitative detection and differentiation of nucleic acids from multiple viral and bacterial respiratory organisms in nasopharyngeal swabs (TRANSPORT NURSE). Performed By: #### L [id number] ####[facility] ([facility])[address] [place] [address] BORDETELLA PERTUSSIS DNA PRESENCE IN UNSPECIFIED SPECIMEN BY RI* Not detected Normal Not Detected [facility] Comment on above: Order Comment: Testi ng methodology is a multiplexed nucleic acid test intended for the simultaneous qualitative detection and differentiation of nucleic acids from multiple viral and bacterial respiratory organisms in nasopharyngeal swabs (TRANSPORT NURSE). Performed By: #### L [id number] ####[facility] ([facility])[address] [place] [address] CHLAMYDOPHILA PNEUMONIAE Not detected Normal Not Detected [facility] Comment on above: Order Comment: Testi ng methodology is a multiplexed nucleic acid test intended for the simultaneous qualitative detection and differentiation of nucleic acids from multiple viral and bacterial respiratory organisms in nasopharyngeal swabs (TRANSPORT NURSE). Performed By: #### L [id number] ####[facility] ([facility])[address] [place] [address] CORONAVIRUS 229E Not detected Normal Not Detected [facility] Comment on above: Order Comment: Testi ng methodology is a multiplexed nucleic acid test intended for the simultaneous qualitative detection and differentiation of nucleic acids from multiple viral and bacterial respiratory organisms in nasopharyngeal swabs (TRANSPORT NURSE). Performed By: #### L [id number] ####[facility] ([facility])[address] [place] [address] CORONAVIRUS HKU1 Not detected Normal Not Detected [facility] Comment on above: Order Comment: Testi ng methodology is a multiplexed nucleic acid test intended for the simultaneous qualitative detection and differentiation of nucleic acids from multiple viral and bacterial respiratory organisms in nasopharyngeal swabs (TRANSPORT NURSE). Performed By: #### L [id number] ####[facility] ([facility])[address] [place] [address] CORONAVIRUS [id number] Not detected Normal Not Detected [facility] Comment on above: Order Comment: Testi ng methodology is a multiplexed nucleic acid test intended for the simultaneous qualitative detection and differentiation of nucleic acids from multiple viral and bacterial respiratory organisms in nasopharyngeal swabs (TRANSPORT NURSE). Performed By: #### L [id number] ####[facility] ([facility])[address] [place] [address] CORONAVIRUS OC43 Not detected Normal Not Detected [facility] Comment on above: Order Comment: Testi ng methodology is a multiplexed nucleic acid test intended for the simultaneous qualitative detection and differentiation of nucleic acids from multiple viral and bacterial respiratory organisms in nasopharyngeal swabs (TRANSPORT NURSE). Performed By: #### L [id number] ####[facility] ([facility])[address] [place] [address] HUMAN METAPNEUMOVIRUS Not detected Normal Not Detected [facility] Comment on above: Order Comment: Testi ng methodology is a multiplexed nucleic acid test intended for the simultaneous qualitative detection and differentiation of nucleic acids from multiple viral and bacterial respiratory organisms in nasopharyngeal swabs (TRANSPORT NURSE). Performed By: #### L [id number] ####[facility] ([facility])[address] [place] [address] HUMAN RHINOVIRUS+ENTEROVIRUS Not detected Normal Not Detected [facility] Comment on above: Order Comment: Testi ng methodology is a multiplexed nucleic acid test intended for the simultaneous qualitative detection and differentiation of nucleic acids from multiple viral and bacterial respiratory organisms in nasopharyngeal swabs (TRANSPORT NURSE). Performed By: #### L [id number] ####[facility] ([facility])[address] [place] [address] INFLUENZA A Not detected Normal Not Detected [facility] Comment on above: Order Comment: Testi ng methodology is a multiplexed nucleic acid test intended for the simultaneous qualitative detection and differentiation of nucleic acids from multiple viral and bacterial respiratory organisms in nasopharyngeal swabs (TRANSPORT NURSE). Performed By: #### L [id number] ####[facility] ([facility])[address] [place] [address] INFLUENZA B Not detected Normal Not Detected [facility] Comment on above: Order Comment: Testi ng methodology is a multiplexed nucleic acid test intended for the simultaneous qualitative detection and differentiation of nucleic acids from multiple viral and bacterial respiratory organisms in nasopharyngeal swabs (TRANSPORT NURSE). Performed By: #### L [id number] ####[facility] ([facility])[address] [place] [address] MYCOPLASMA PNEUMONIAE Not detected Normal Not Detected [facility] Comment on above: Order Comment: Testi ng methodology is a multiplexed nucleic acid test intended for the simultaneous qualitative detection and differentiation of nucleic acids from multiple viral and bacterial respiratory organisms in nasopharyngeal swabs (TRANSPORT NURSE). Performed By: #### L [id number] ####[facility] ([facility])[address] [place] [address] PARAINFLUENZA 1 Not detected Normal Not Detected [facility] Comment on above: Order Comment: Testi ng methodology is a multiplexed nucleic acid test intended for the simultaneous qualitative detection and differentiation of nucleic acids from multiple viral and bacterial respiratory organisms in nasopharyngeal swabs (TRANSPORT NURSE). Performed By: #### L [id number] ####[facility] ([facility])[address] [place] [address] PARAINFLUENZA 2 Not detected Normal Not Detected [facility] Comment on above: Order Comment: Testi ng methodology is a multiplexed nucleic acid test intended for the simultaneous qualitative detection and differentiation of nucleic acids from multiple viral and bacterial respiratory organisms in nasopharyngeal swabs (TRANSPORT NURSE). Performed By: #### L [id number] ####[facility] ([facility])[address] [place] [address] PARAINFLUENZA 3 Not detected Normal Not Detected [facility] Comment on above: Order Comment: Testi ng methodology is a multiplexed nucleic acid test intended for the simultaneous qualitative detection and differentiation of nucleic acids from multiple viral and bacterial respiratory organisms in nasopharyngeal swabs (TRANSPORT NURSE). Performed By: #### L [id number] ####[facility] ([facility])[address] [place] [address] PARAINFLUENZA 4 Not detected Normal Not Detected [facility] Comment on above: Order Comment: Testi ng methodology is a multiplexed nucleic acid test intended for the simultaneous qualitative detection and differentiation of nucleic acids from multiple viral and bacterial respiratory organisms in nasopharyngeal swabs (TRANSPORT NURSE). Performed By: #### L [id number] ####[facility] ([facility])[address] [place] [address] RESP SYNCYTIAL VIRUS Not detected Normal Not Detected [facility] Comment on above: Order Comment: Testi ng methodology is a multiplexed nucleic acid test intended for the simultaneous qualitative detection and differentiation of nucleic acids from multiple viral and bacterial respiratory organisms in nasopharyngeal swabs (TRANSPORT NURSE). Performed By: #### L [id number] ####[facility] ([facility])[address] [place] [address] SARS-CoV-2 (COVID-19) RNA TAI+probe Ql (Unsp spec) Not detected Normal Not Detected [facility] Comment on above: Order Comment: Testi ng methodology is a multiplexed nucleic acid test intended for the simultaneous qualitative detection and differentiation of nucleic acids from multiple viral and bacterial respiratory organisms in nasopharyngeal swabs (TRANSPORT NURSE). Performed By: #### L [id number] ####[facility] ([facility])[address] [place] [address] ANTI-XA (HEPARIN LEVEL)on HEPARIN UNFRACTIONATED (U/ML) IN PPP BY CHROMOGENIC METHOD <0.10 Invalid Interpretation Code 0.3-0.7 [facility] Comment on above: Order Comment: Check anti-Xa level every 6 hours while on heparin infusion, or per protocol. Result Comment: Ricarda roxaban and Apixaban will interfere with the anti Xa assay used to monitor UFH and LMWH. Performed By: #### L [id number] ####[facility] ([facility])[address] [place] [address] BASIC METABOLIC PANELon 02-12 Anion gap [Moles/Vol] 10 mmol/L Normal 7-20 [facility] Comment on above: Performed By: #### L [id number] ####[facility] ([facility])[address] [place] [address] Calcium [Mass/Vol] 8.0 mg/dL Low 8.6-10.3 [facility] Comment on above: Performed By: #### L [id number] ####[facility] ([facility])[address] [place] [address] Chloride [Moles/Vol] 102 mmol/L Normal 98-107 [facility] Comment on above: Performed By: #### L [id number] ####[facility] ([facility])[address] [place] [address] CO2 [Moles/Vol] 30 mmol/L Normal 21-[address] [facility] Comment on above: Performed By: #### L [id number] ####[facility] ([facility])[address] [place] [address] Creatinine [Mass/Vol] 1.22 mg/dL Normal 0.70-1.30 [facility] Comment on above: Performed By: #### L [id number] ####[facility] ([facility])[address] [place] [address] GLOMERULAR FILTRATION RATE ML/MIN/1.73 SQ M.PREDICTED 60.7 mL/min/1.73m*2 Normal >60.0 [facility] Comment on above: Result Comment: The [facility]???s estimated glomerular filtration rate (eGFR) will [...] of individuals. Performed By: #### L [id number] ####[facility] ([facility])[address] [place] [address] Glucose [Mass/Vol] 94 mg/dL Normal 70-100 [facility] Comment on above: Performed By: #### L [id number] ####[facility] ([facility])[address] [place] [address] Potassium [Moles/Vol] 3.0 mmol/L Low 3.5-5.1 [facility] Comment on above: Performed By: #### L [id number] ####[facility] ([facility])[address] [place] [address] Sodium [Moles/Vol] 139 mmol/L Normal 136-145 [facility] Comment on above: Performed By: #### L [id number] ####[facility] ([facility])[address] [place] [address] Urea nitrogen [Mass/Vol] 16 mg/dL Normal 7-25 [facility] Comment on above: Performed By: #### L [id number] ####[facility] ([facility])[address] [place] [address] UREA NITROGEN/CREATININE (MASS RATIO) IN SER/PLAS 13.1 Normal [facility] Comment on above: Performed By: #### L [id number] ####[facility] ([facility])[address] [place] [address] CBC WITH AUTO DIFFERENTIALon 02-28-2024 Basophils (Bld) [#/Vol] 0.03 10*3/uL Normal 0.00-0.20 [facility] Comment on above: Performed By: #### L [id number] ####[facility] ([facility])[address] [place] [address] Basophils/100 WBC (Bld) 0.3 % Normal 0.0-1.0 [facility] Comment on above: Performed By: #### L [id number] ####[facility] ([facility])[address] [place] [address] Eosinophils (Bld) [#/Vol] 0.00 10*3/uL Normal 0.00-0.5 0 [facility] Comment on above: Performed By: #### L [id number] ####[facility] ([facility])[address] [place] [address] Eosinophils/100 WBC (Bld) 0.0 % Normal 0.0-6.0 [facility] Comment on above: Performed By: #### L [id number] ####[facility] ([facility])[address] [place] [address] Erythrocyte distribution width (RBC) [Ratio] 13.0 % Normal 11.5-15.0 [facility] Comment on above: Performed By: #### L [id number] ####[facility] ([facility])[address] [place] [address] ERYTHROCYTE MEAN CORPUSCULAR HEMOGLOBIN CONCENTRATION (G/DL) BY AUTOMATED 32.3 g/dL Normal 32.0-35.0 [facility] Comment on above: Performed By: #### L [id number] ####[facility] ([facility])[address] [place] [address] Hematocrit (Bld) [Volume fraction] 37.5 % Low 39.0-55.0 [facility] Comment on above: Performed By: #### L [id number] ####[facility] ([facility])[address] [place] [address] Hemoglobin (Bld) [Mass/Vol] 12.1 g/dL Low 13.0-17.0 [facility] Comment on above: Performed By: #### L [id number] ####[facility] ([facility])[address] [place] [address] Immature granulocytes (Bld) [#/Vol] 0.06 10*3/uL Normal 0.00-0.20 [facility] Comment on above: Performed By: #### L [id number] ####[facility] ([facility])[address] [place] [address] Immature granulocytes/100 WBC (Bld) 0.6 % Normal 0.0-1.0 [facility] Comment on above: Performed By: #### L [id number] ####[facility] ([facility])[address] [place] [address] Lymphocytes (Bld) [#/Vol] 0.56 10*3/uL Low 1.20-4.0 0 [facility] Comment on above: Performed By: #### L [id number] ####[facility] ([facility])[address] [place] [address] Lymphocytes/100 WBC (Bld) 6.1 % Low 20.0-45.0 [facility] Comment on above: Performed By: #### L [id number] ####[facility] ([facility])[address] [place] [address] MCH (RBC) [Entitic mass] 32.3 pg Normal 27.0-33.0 [facility] Comment on above: Performed By: #### L [id number] ####[facility] ([facility])[address] [place] [address] MCV (RBC) [Entitic vol] 100.0 fL High 82.0-98.0 [facility] Comment on above: Performed By: #### L [id number] ####[facility] ([facility])[address] [place] [address] Monocytes (Bld) [#/Vol] 1.19 10*3/uL High 0.10-1.00 [facility] Comment on above: Performed By: #### L [id number] ####[facility] ([facility])[address] [place] [address] Monocytes/100 WBC (Bld) 12.9 % High 5.0-12.0 [facility] Comment on above: Performed By: #### L [id number] ####[facility] ([facility])[address] [place] [address] Neutrophils (Bld) [#/Vol] 7.41 10*3/uL Normal 1.60-7.6 0 [facility] Comment on above: Performed By: #### L [id number] ####[facility] ([facility])[address] [place] [address] Neutrophils/100 WBC (Bld) 80.1 % High 40.0-72.0 [facility] Comment on above: Performed By: #### L [id number] ####[facility] ([facility])[address] [place] [address] NRBC (PER 100 WBCS) BY AUTOMATED COUNT 0.0 % Normal 0 [facility] Comment on above: Performed By: #### L [id number] ####[facility] ([facility])[address] [place] [address] PLATELETS (10*3/UL) IN BLOOD AUTOMATED COUNT 146 10*3/uL Low 150-400 [facility] Comment on above: Performed By: #### L [id number] ####[facility] ([facility])[address] [place] [address] RBC (Bld) [#/Vol] 3.75 10*6/uL Low 4.20-5.70 [facility] Comment on above: Performed By: #### L [id number] ####[facility] ([facility])[address] [place] [address] WBC (Bld) [#/Vol] 9.25 10*3/uL Normal 4.00-10.60 [facility] Comment on above: Performed By: #### L [id number] ####[facility] ([facility])[address] [place] [address] MAGNESIUMon 02-28-2024 Magnesium [Mass/Vol] 1.5 mg/dL Low 1.9-2.7 [facility] Comment on above: Performed By: #### L [id number] ####[facility] ([facility])[address] [place] [address] PHOSPHORUSon 02-28-2024 Magnesium [Mass/Vol] 2.7 mg/dL Normal 2.5-5.0 [facility] Comment on above: Performed By: #### L [id number] ####[facility] ([facility])[address] [place] [address] PROCALCITONIN TESTon 024 PROCALCITONIN IN BLOOD 3.55 ng/mL Critically high 0.00-0.1 0 [facility] Comment on above: Result Comment: Susp [...] and initial PCT<0.5ng/mL Performed By: #### L [id number] ####[facility] ([facility])[address] [place] [address] URINALYSIS WITH MICROSCOPICo n 02-28-2024 BILIRUBIN, TOTAL PRESENCE IN URINE Negative Normal Negative [facility] Comment on above: Performed By: #### L [id number] ####[facility] ([facility])[address] [place] [address] Clarity (U) Cloudy Abnormal Clear [facility] Comment on above: Performed By: #### L [id number] ####[facility] ([facility])[address] [place] [address] Color (U) Yellow Normal Colorless, Yellow, Light-Cayey ow [facility] Comment on above: Performed By: #### L [id number] ####[facility] ([facility])[address] [place] [address] GLUCOSE (MG/DL) IN URINE Normal Normal Normal [facility] Comment on above: Performed By: #### L [id number] ####[facility] ([facility])[address] [place] [address] HEMOGLOBIN PRESENCE IN URINE Moderate Abnormal Negative [facility] Comment on above: Performed By: #### L [id number] ####[facility] ([facility])[address] [place] [address] Ketones Ql (U) Negative Normal Negative [facility] Comment on above: Performed By: #### L [id number] ####[facility] ([facility])[address] [place] [address] LEUKOCYTE ESTERASE PRESENCE IN URINE BY TEST STRIP Large Abnormal Negative [facility] Comment on above: Performed By: #### L [id number] ####[facility] ([facility])[address] [place] [address] MUCUS (#/LPF) IN URINE SEDIMENT Occasional Normal None Seen, Occasional , Few [facility] Comment on above: Performed By: #### L [id number] ####[facility] ([facility])[address] [place] [address] NITRITE PRESENCE IN URINE Negative Normal Negative [facility] Comment on above: Performed By: #### L [id number] ####[facility] ([facility])[address] [place] [address] pH (U) 6.0 [pH] Normal 5.0-8.0 [facility] Comment on above: Performed By: #### L [id number] ####[facility] ([facility])[address] [place] [address] Protein (U) [Mass/Vol] 30 mg/dL Abnormal Negative [facility]: Performed By: #### L [id number] ####[facility] ([facility])[address] [place] [address] RBC (#/HPF) IN URINE SEDIMENT 11-20 Abnormal None Seen, 0-2 [facility] Comment on above: Performed By: #### L [id number] ####[facility] ([facility])[address] [place] [address] Specific gravity (U) [Rel density] 1.018 Normal 1.010-1.03 0 [facility] Comment on above: Performed By: #### L [id number] ####[facility] ([facility])[address] [place] [address] SQUAMOUS EPITHELIAL CELLS (#/LPF) IN URINE SEDIMENT Few Normal None Seen, Occasional , Few [facility] Comment on above: Performed By: #### L [id number] ####[facility] ([facility])[address] [place] [address] UROBILINOGEN (MG/DL) IN URINE Normal Normal Normal [facility] Comment on above: Performed By: #### L [id number] ####[facility] ([facility])[address] [facility] [address] WBC (LEUKOCYTE) (#/HPF) IN URINE SEDIMENT >50 Abnormal None Seen, 0-2 [facility] Comment on above: Performed By: #### L [id number] ####[facility] ([facility])[address] [facility] [address] WBC (LEUKOCYTE) CLUMPS (#/HPF) IN URINE SEDIMENT Present Abnormal None Seen [facility] Comment on above: Performed By: #### L [id number] ####[facility] ([facility])[address] [facility] [address] YEAST, BUDDING (#/HPF) IN URINE Occasional Abnormal None Seen [facility] Comment on above: Performed By: #### L [id number] ####[facility] ([facility])[address] [place] [address] VENOUS BLOOD GAS WITH IONIZE D CALCIUMon 02-28-2024 Base excess Calc (BldV) [Moles/Vol] 3.8 mmol/L Normal [facility] Comment on above: Order Comment: Bipap 16/8 RR 14 FiO2 75% Performed By: #### L [id number] ####[facility]PIRAT[facility] [id number] [place] [address] [place] CALCIUM IONIZED (MMOL/L) IN BLOOD 1.06 mmol/L Low 1.15-1.33 [facility] Comment on above: Order Comment: Bipap 16/8 RR 14 FiO2 75% Performed By: #### L [id number] ####[facility] [id number] [place] [address] [place] CO2 (BldV) [Partial pressure] 46 mm[Hg] Normal 40-50 [facility] Comment on above: Order Comment: Bipap 16/8 RR 14 FiO2 75% Performed By: #### L [id number] ####[facility] RESPIRAT[facility] [id number] [place] [address] [place] HCO3 (Bld) [Moles/Vol] 29.2 mmol/L Normal [facility] Comment on above: Order Comment: Bipap 16/8 RR 14 FiO2 75% Performed By: #### L [id number] ####[facility] RESPIRATORY [id number] [place] [address] [place] Oxygen (BldV) [Partial pressure] 47 mm[Hg] High 35-45 [facility] Comment on above: Order Comment: Bipap 16/8 RR 14 FiO2 75% Performed By: #### L [id number] ####[facility] RESPIRATORY [id number] [place] [address] [facility] OXYGEN SATURATION (%) IN VENOUS BLOOD 78.8 % High 65.0-75.0 [facility] Comment on above: Order Comment: Bipap 16/8 RR 14 FiO2 75% Performed By: #### L [id number] ####[facility] RESPIRATORY [id number] [place] [address] [facility] PH OF VENOUS BLOOD 7.41 Normal 7.31-7.41 [facility] Comment on above: Order Comment: Bipap 16/8 RR 14 FiO2 75% Performed By: #### L [id number] ####[facility] RESPIRATORY [id number] [place] [address] [facility] 30on 02-27-2024 30 Normal [facility] 30 Normal [facility] ANESon 02-27-2024 ANES Normal [facility] ANTI-XA (HEPARIN LEVEL)on HEPARIN UNFRACTIONATED (U/ML) IN PPP BY CHROMOGENIC METHOD 0.51 IU/mL Normal 0.3-0.7 [facility] Comment on above: Result Comment: Ricarda roxaban and Apixaban will interfere with the anti Xa assay used to monitor UFH and LMWH. Performed By: #### L [id number] ####[facility] ([facility]ER)[address] [place] [address] HEPARIN UNFRACTIONATED (U/ML) IN PPP BY CHROMOGENIC METHOD 0.28 IU/mL Low 0.3-0.7 [facility] Comment on above: Order Comment: Check anti-Xa level every 6 hours while on heparin infusion, or per protocol. Result Comment: Ricarda roxaban and Apixaban will interfere with the anti Xa assay used to monitor UFH and LMWH. Performed By: #### L [id number] ####[facility] ([facility])[address] [place] [address] HEPARIN UNFRACTIONATED (U/ML) IN PPP BY CHROMOGENIC METHOD 0.21 IU/mL Low 0.3-0.7 [facility] Comment on above: Result Comment: [place] roxaban and Apixaban will interfere with the anti Xa assay used to monitor UFH and LMWH. Performed By: #### L [id number] ####[facility] ([facility])[address] [place] [address] BASIC METABOLIC PANELon 02-12 Anion gap [Moles/Vol] 9 mmol/L Normal 7-20 [facility] Comment on above: Performed By: #### L [id number] ####[facility] ([facility])[address] [place] [address] Calcium [Mass/Vol] 8.4 mg/dL Low 8.6-10.3 [facility] Comment on above: Performed By: #### L [id number] ####[facility] ([facility])[address] [place] [address] Chloride [Moles/Vol] 105 mmol/L Normal 98-107 [facility] Comment on above: Performed By: #### L [id number] ####[facility] ([facility])[address] [place] [address] CO2 [Moles/Vol] 27 mmol/L Normal 21-[address] [facility] Comment on above: Performed By: #### L [id number] ####[facility] ([facility])[address] [place] [address] Creatinine [Mass/Vol] 0.88 mg/dL Normal 0.70-1.30 [facility] Comment on above: Performed By: #### L [id number] ####[facility] ([facility])[address] [place] [address] GLOMERULAR FILTRATION RATE ML/MIN/1.73 SQ M.PREDICTED 88.0 mL/min/1.73m*2 Normal >60.0 [facility] Comment on above: Result Comment: The [facility]???s estimated glomerular filtration rate (eGFR) will [...] of individuals. Performed By: #### L [id number] ####[facility] (AKER)[address] [place] [address] Glucose [Mass/Vol] 116 mg/dL High 70-100 [facility] Comment on above: Performed By: #### L [id number] ####[facility] ([facility])[address] [place] [address] Potassium [Moles/Vol] 3.8 mmol/L Normal 3.5-5.1 [facility] Comment on above: Performed By: #### L [id number] ####[facility] ([facility])[address] [place] [address] Sodium [Moles/Vol] 137 mmol/L Normal 136-145 [facility] Comment on above: Performed By: #### L [id number] ####[facility] ([facility])[address] [place] [address] Urea nitrogen [Mass/Vol] 11 mg/dL Normal 7-25 [facility] Comment on above: Performed By: #### L [id number] ####[facility] ([facility])[address] [place] [address] UREA NITROGEN/CREATININE (MASS RATIO) IN SER/PLAS 12.5 Normal [facility] Comment on above: Performed By: #### L [id number] ####[facility] ([facility])[address] [place] [address] BLOOD CULTUREon 02-27-2024 Bacteria identified Cx Nom (Bld) No growth at 5 days Normal [facility] Comment on above: Performed By: #### L [id number] ####[facility] ([facility])[address] [place] [address] CALCIUM, IONIZEDon CALCIUM IONIZED (MMOL/L) IN BLOOD 1.20 mmol/L Normal 1.15-1.33 [facility] Comment on above: Performed By: #### C ALCIUM, IONIZED ####[facility] RESPIRATORY [id number] [place] [address] [place] CBC WITH AUTO DIFFERENTIALon 02-27-2024 Basophils (Bld) [#/Vol] 0.02 10*3/uL Normal 0.00-0.20 [facility] Comment on above: Performed By: #### L [id number] ####[facility] ([facility])[address] [place] [address] Basophils/100 WBC (Bld) 0.4 % Normal 0.0-1.0 [facility] Comment on above: Performed By: #### L [id number] ####[facility] ([facility])[address] [place] [address] Eosinophils (Bld) [#/Vol] 0.03 10*3/uL Normal 0.00-0.5 0 [facility] Comment on above: Performed By: #### L [id number] ####[facility] ([facility])[address] [place] [address] Eosinophils/100 WBC (Bld) 0.7 % Normal 0.0-6.0 [facility] Comment on above: Performed By: #### L [id number] ####[facility] ([facility])[address] [place] [address] Erythrocyte distribution width (RBC) [Ratio] 13.1 % Normal 11.5-15.0 [facility] Comment on above: Performed By: #### L [id number] ####[facility] ([facility])[address] [place] [address] ERYTHROCYTE MEAN CORPUSCULAR HEMOGLOBIN CONCENTRATION (G/DL) BY AUTOMATED 31.8 g/dL Low 32.0-35.0 [facility] Comment on above: Performed By: #### L [id number] ####[facility] ([facility])[address] [place] [address] Hematocrit (Bld) [Volume fraction] 37.7 % Low 39.0-55.0 [facility] Comment on above: Performed By: #### L [id number] ####[facility] ([facility])[address] [place] [address] Hemoglobin (Bld) [Mass/Vol] 12.0 g/dL Low 13.0-17.0 [facility] Comment on above: Performed By: #### L [id number] ####[facility] ([facility])[address] [place] [address] Immature granulocytes (Bld) [#/Vol] 0.02 10*3/uL Normal 0.00-0.20 [facility] Comment on above: Performed By: #### L [id number] ####[facility] ([facility])[address] [place] [address] Immature granulocytes/100 WBC (Bld) 0.4 % Normal 0.0-1.0 [facility] Comment on above: Performed By: #### L [id number] ####[facility] ([facility])[address] [place] [address] IMMATURE PLATELET FRACTION % 3.0 % Normal 0.8-6.3 [facility] Comment on above: Performed By: #### L [id number] ####[facility] ([facility])[address] [place] [address] Lymphocytes (Bld) [#/Vol] 0.73 10*3/uL Low 1.20-4.0 0 [facility] Comment on above: Performed By: #### L [id number] ####[facility] ([facility])[address] [place] [address] Lymphocytes/100 WBC (Bld) 16.0 % Low 20.0-45.0 [facility] Comment on above: Performed By: #### L [id number] ####[facility] (BEAKER)[address] [place] [address] MCH (RBC) [Entitic mass] 32.1 pg Normal 27.0-33.0 [facility] Comment on above: Performed By: #### L [id number] ####[facility] (BE[facility]ER)[address], [place] [address] MCV (RBC) [Entitic vol] 100.8 fL High 82.0-98.0 [facility] Comment on above: Performed By: #### L [id number] ####[facility] ([facility])[address] [place], [place] [address] Monocytes (Bld) [#/Vol] 0.85 10*3/uL Normal 0.10-1.00 [facility] Comment on above: Performed By: #### L [id number] ####[facility] (BEAKER)[address] [place], [place] [address] Monocytes/100 WBC (Bld) 18.7 % High 5.0-12.0 [facility] Comment on above: Performed By: #### L [id number] ####[facility] ([facility]AKER)[address] [place] [address] Neutrophils (Bld) [#/Vol] 2.90 10*3/uL Normal 1.60-7.6 0 [facility] Comment on above: Performed By: #### L [id number] ####[facility] ([facility]AKER)[address] [place], [place] [address] Neutrophils/100 WBC (Bld) 63.8 % Normal 40.0-72.0 [facility] Comment on above: Performed By: #### L [id number] ####[facility] ([facility]ER)[address] [place] [address] NRBC (PER 100 WBCS) BY AUTOMATED COUNT 0.0 % Normal 0 [facility] Comment on above: Performed By: #### L [id number] ####[facility] ([facility])[address] [place] [address] PLATELETS (10*3/UL) IN BLOOD AUTOMATED COUNT 134 10*3/uL Low 150-400 [facility] Comment on above: Performed By: #### L [id number] ####[facility] ([facility])[address] [place] [address] RBC (Bld) [#/Vol] 3.74 10*6/uL Low 4.20-5.70 [facility] Comment on above: Performed By: #### L [id number] ####[facility] ([facility])[address] [place] [address] WBC (Bld) [#/Vol] 4.55 10*3/uL Normal 4.00-10.60 [facility] Comment on above: Performed By: #### L [id number] ####[facility] ([facility])[address] [place] [address] HPon 02-27-2024 HP Normal [facility] POTASSIUM, WHOLE BLOODon Potassium [Moles/Vol] 3.4 mmol/L Low 3.5-5.1 [facility] Comment on above: Performed By: #### P OTASSIUM, WHOLE BLOOD ####[facility]PIR[facility] [id number] [place] [address] [place] SODIUM, WHOLE BLOODon 2023 SODIUM, WHOLE BLOOD 135 Low 136-145 [facility] Comment on above: Performed By: #### S ODIUM, WHOLE BLOOD ####[facility] RESPIRATORY [id number] [place] [address] [place] TROPONIN Ion 02-27-2024 Troponin I.cardiac [Mass/Vol] 0.04 ng/mL Normal 0.00-0.04 [facility] Comment on above: Performed By: #### L [id number] ####[facility] ([facility])[address] [place] [address] Troponin I.cardiac [Mass/Vol] 0.02 ng/mL Normal 0.00-0.04 [facility] Comment on above: Performed By: #### L [id number] ####[facility] ([facility])[address] [place] [address] Troponin I.cardiac [Mass/Vol] 0.01 ng/mL Normal 0.00-0.04 [facility] Comment on above: Performed By: #### L [id number] ####[facility] ([facility])[address] [place] [address] Troponin I.cardiac [Mass/Vol] 0.01 ng/mL Normal 0.00-0.04 [facility] Comment on above: Performed By: #### L [id number] ####[facility] ([facility])[address] [place] [address] Troponin I.cardiac [Mass/Vol] 0.02 ng/mL Normal 0.00-0.04 [facility] Comment on above: Performed By: #### L [id number] ####[facility] ([facility])[address] [place] [address] Troponin I.cardiac [Mass/Vol] 0.01 ng/mL Normal 0.00-0.04 [facility] Comment on above: Performed By: #### L [id number] ####[facility] ([facility])[address] [place] [address] 30on 02-26-2024 30 The patient is Moderately Stable - Low risk of patient condition declining or worsening The patient's goals for the shift include The clinical goals for the shift include Over the shift, the patient did not make progress toward the following goals. Normal [facility] ANTI-XA (HEPARIN LEVEL)on HEPARIN UNFRACTIONATED (U/ML) IN PPP BY CHROMOGENIC METHOD 0.14 IU/mL Invalid Interpretation Code 0.3-0.7 [facility] Comment on above: Result Comment: [place] roxaban and Apixaban will interfere with the anti Xa assay used to monitor UFH and LMWH. Performed By: #### L [id number] ####[facility] ([facility])[address] [place] [address] HEPARIN UNFRACTIONATED (U/ML) IN PPP BY CHROMOGENIC METHOD <0.10 Invalid Interpretation Code 0.3-0.7 [facility] Comment on above: Result Comment: [place] roxaban and Apixaban will interfere with the anti Xa assay used to monitor UFH and LMWH. Performed By: #### L [id number] ####[facility] ([facility])[address] [place] [address] APOLIPOPROTEIN B-100on 02-25 Magnesium [Mass/Vol] 50 mg/dL Low 66-133 [facility] Comment on above: Result Comment: REFE RENCE INTERVAL: Apolipoprotein BA desirable fasting serum Apo B concentration for the preventionof atherosclerotic cardiovascular disease in adults is less than90 mg/dL. A fasting serum Apo B concentration of 130 mg/dL orgreater corresponds to a LDL cholesterol concentration greaterthan 160 mg/dL and constitutes a risk enhancing factor foratherosclerotic cardiovascular disease in adults.Performed By: [id number] [place], [place] [address]Mdhnitnbvo Director: Josh Olvera MD, PhDCLIA Number: [id number] Performed By: #### L [id number] ####[facility] ([facility])[address] [place] [address] APTTon 02-26-2024 ACTIVATED PARTIAL THROMBOPLASTIN TIME IN PPP BY COAGULATION ASSAY 32.6 Seconds Normal 25.0-35.0 [facility] Comment on above: Result Comment: Clin ical significance of the APTT is questionable in the presence of heparin. Performed By: #### L [id number] ####[facility] ([facility])[address] [place] [address] B-TYPE NATRIURETIC PEPTIDEon 02-26-2024 Natriuretic peptide B (Bld) [Mass/Vol] 321 pg/mL High 0-100 [facility] Comment on above: Performed By: #### L [id number] ####[facility] ([facility])[address] [place] [address] CBC WITH AUTO DIFFERENTIALon 02-26-2024 Basophils (Bld) [#/Vol] 0.03 10*3/uL Normal 0.00-0.20 [facility] Comment on above: Performed By: #### L [id number] ####[facility] ([facility])[address] [place] [address] Basophils/100 WBC (Bld) 0.5 % Normal 0.0-1.0 [facility] Comment on above: Performed By: #### L [id number] ####[facility] ([facility])[address] [place] [address] Eosinophils (Bld) [#/Vol] 0.04 10*3/uL Normal 0.00-0.5 0 [facility] Comment on above: Performed By: #### L [id number] ####[facility] ([facility])[address] [place] [address] Eosinophils/100 WBC (Bld) 0.6 % Normal 0.0-6.0 [facility] Comment on above: Performed By: #### L [id number] ####[facility] ([facility])[address] [place] [address] Erythrocyte distribution width (RBC) [Ratio] 12.9 % Normal 11.5-15.0 [facility] Comment on above: Performed By: #### L [id number] ####[facility] ([facility])[address] [place] [address] ERYTHROCYTE MEAN CORPUSCULAR HEMOGLOBIN CONCENTRATION (G/DL) BY AUTOMATED 31.2 g/dL Low 32.0-35.0 [facility] Comment on above: Performed By: #### L [id number] ####[facility] ([facility])[address] [place] [address] Hematocrit (Bld) [Volume fraction] 43.6 % Normal 39.0-55.0 [facility] Comment on above: Performed By: #### L [id number] ####[facility] ([facility])[address] [place] [address] Hemoglobin (Bld) [Mass/Vol] 13.6 g/dL Normal 13.0-17.0 [facility] Comment on above: Performed By: #### L [id number] ####[facility] ([facility])[address] [place] [address] Immature granulocytes (Bld) [#/Vol] 0.03 10*3/uL Normal 0.00-0.20 [facility] Comment on above: Performed By: #### L [id number] ####[facility] ([facility])[address] [place] [address] Immature granulocytes/100 WBC (Bld) 0.5 % Normal 0.0-1.0 [facility] Comment on above: Performed By: #### L [id number] ####[facility] ([facility])[address] [place] [address] Lymphocytes (Bld) [#/Vol] 0.52 10*3/uL Low 1.20-4.0 0 [facility] Comment on above: Performed By: #### L [id number] ####[facility] ([facility])[address] [place] [address] Lymphocytes/100 WBC (Bld) 8.4 % Low 20.0-45.0 [facility] Comment on above: Performed By: #### L [id number] ####[facility] ([facility])[address] [place] [address] MCH (RBC) [Entitic mass] 32.3 pg Normal 27.0-33.0 [facility] Comment on above: Performed By: #### L [id number] ####[facility] ([facility])[address] [place] [address] MCV (RBC) [Entitic vol] 103.6 fL High 82.0-98.0 [facility] Comment on above: Performed By: #### L [id number] ####[facility] ([facility])[address] [place] [address] Monocytes (Bld) [#/Vol] 0.71 10*3/uL Normal 0.10-1.00 [facility] Comment on above: Performed By: #### L [id number] ####[facility] ([facility]AKER)[address] [place] [address] Monocytes/100 WBC (Bld) 11.5 % Normal 5.0-12.0 [facility] Comment on above: Performed By: #### L [id number] ####[facility] ([facility]AKER)[address] [place] [address] Neutrophils (Bld) [#/Vol] 4.86 10*3/uL Normal 1.60-7.6 0 [facility] Comment on above: Performed By: #### L [id number] ####[facility] ([facility]ER)[address] [place] [address] Neutrophils/100 WBC (Bld) 78.5 % High 40.0-72.0 [facility] Comment on above: Performed By: #### L [id number] ####[facility] ([facility]ER)[address] [place] [address] NRBC (PER 100 WBCS) BY AUTOMATED COUNT 0.0 % Normal 0 [facility] Comment on above: Performed By: #### L [id number] ####[facility] ([facility]ER)[address] [place] [address] PLATELETS (10*3/UL) IN BLOOD AUTOMATED COUNT 153 10*3/uL Normal 150-400 [facility] Comment on above: Performed By: #### L [id number] ####[facility] ([facility]ER)[address] [place] [address] RBC (Bld) [#/Vol] 4.21 10*6/uL Normal 4.20-5.70 [facility] Comment on above: Performed By: #### L [id number] ####[facility] (BEAKER)[address] [place] [address] WBC (Bld) [#/Vol] 6.19 10*3/uL Normal 4.00-10.60 [facility] Comment on above: Performed By: #### L [id number] ####[facility] ([facility])[address] [place] [address] CKon 02-26-2024 CREATINE KINASE (U/L) IN SER/PLAS 94.0 U/L Normal 30.0-223.0 [facility] Comment on above: Performed By: #### L [id number] ####[facility] ([facility])[address] [place] [address] COMPREHENSIVE METABOLIC PANE Larry 02-26-2024 Albumin [Mass/Vol] 3.4 g/dL Low 3.5-5.7 [facility] Comment on above: Performed By: #### L [id number] ####[facility] ([facility])[address] [place] [address] ALP [Catalytic activity/Vol] 89 U/L Normal 34-104 [facility] Comment on above: Performed By: #### L [id number] ####[facility] ([facility])[address] [place] [address] ALT [Catalytic activity/Vol] 16 U/L Normal 7-52 [facility] Comment on above: Performed By: #### L [id number] ####[facility] ([facility])[address] [place] [address] Anion gap [Moles/Vol] 9 mmol/L Normal 7-20 [facility] Comment on above: Performed By: #### L [id number] ####[facility] ([facility])[address] [place] [address] AST [Catalytic activity/Vol] 20 U/L Normal 13-39 [facility] Comment on above: Performed By: #### L [id number] ####[facility] ([facility])[address] [place] [address] Bilirubin [Mass/Vol] 1.0 mg/dL Normal 0.3-1.0 [facility] Comment on above: Performed By: #### L [id number] ####[facility] (BEAKER)[address] [place] [address] Calcium [Mass/Vol] 8.6 mg/dL Normal 8.6-10.3 [facility] Comment on above: Performed By: #### L [id number] ####[facility] (BEAKER)[address] [place] [address] Chloride [Moles/Vol] 105 mmol/L Normal 98-107 [facility] Comment on above: Performed By: #### L [id number] ####[facility] (BEAKER)[address] [place] [address] CO2 [Moles/Vol] 30 mmol/L Normal 21-[address] [facility] Comment on above: Performed By: #### L [id number] ####[facility] (BEAKER)[address] [place] [address] Creatinine [Mass/Vol] 0.90 mg/dL Normal 0.70-1.30 [facility] Comment on above: Performed By: #### L [id number] ####[facility] ([facility])[address] [place] [address] GLOMERULAR FILTRATION RATE ML/MIN/1.73 SQ M.PREDICTED 87.4 mL/min/1.73m*2 Normal >60.0 [facility] Comment on above: Result Comment: The [facility]???s estimated glomerular filtration rate (eGFR) will [...] of individuals. Performed By: #### L [id number] ####[facility] (BEAKER)[address] [place] [address] Glucose [Mass/Vol] 127 mg/dL High 70-100 [facility] Comment on above: Performed By: #### L [id number] ####[facility] ([facility])[address] [place] [address] Potassium [Moles/Vol] 3.4 mmol/L Low 3.5-5.1 [facility] Comment on above: Performed By: #### L [id number] ####[facility] ([facility])[address] [place] [address] Protein [Mass/Vol] 6.9 g/dL Normal 6.0-8.3 [facility] Comment on above: Performed By: #### L [id number] ####[facility] ([facility])[address] [place] [address] Sodium [Moles/Vol] 141 mmol/L Normal 136-145 [facility] Comment on above: Performed By: #### L [id number] ####[facility] ([facility])[address] [place] [address] Urea nitrogen [Mass/Vol] 14 mg/dL Normal 7-25 [facility] Comment on above: Performed By: #### L [id number] ####[facility] ([facility])[address] [place] [address] UREA NITROGEN/CREATININE (MASS RATIO) IN SER/PLAS 15.6 Normal [facility] Comment on above: Performed By: #### L [id number] ####[facility] ([facility])[address] [place] [address] CONSULTon 02-26-2024 CONSULT Normal [facility] CTA CHEST W IV CONTRASTon CTA CHEST W IV CONTRAST [facility] ETHANOL[facility] 02-26-2024 ETHANOL (MG/DL) IN SER/PLAS <10 Normal [facility] Comment on above: Performed By: #### L [id number] ####[facility] ([facility])[address] [place] [address] ETHANOL CALCULATED (%) Normal Un [facility] Comment on above: Performed By: #### L [id number] ####[facility] (BEAKER)[address] [place] [address] HEMOGLOBIN A1Con 02-26-2024 Glucose [Mass/Vol] 88 mg/dL Normal [facility] Comment on above: Performed By: #### L [id number] ####[facility] ([facility])[address] [place] [address] HbA1c (Bld) [Mass fraction] 4.7 % Normal 4.0-6.0 [facility] Comment on above: Performed By: #### L [id number] ####[facility] ([facility])[address] [place] [address] HPon 02-26-2024 HP Normal [facility] LIPID PANELon 02-26-2024 CHOL/HDL 2.5 mg/dL Normal [facility] Comment on above: Performed By: #### L [id number] ####[facility] ([facility])[address] [place] [address] Cholesterol [Mass/Vol] 93 mg/dL Low 120-200 [facility] Comment on above: Performed By: #### L [id number] ####[facility] ([facility])[address] [place] [address] Magnesium [Mass/Vol] 59 mg/dL Normal 40-149 [facility] Comment on above: Result Comment: TRIG LYCERIDE REFERENCE RANGE:20 YEARS AND OLDER CARDIOVASCULAR RISKLESS THAN 150 mg/dL LOW [id number] TO 199 mg/dL BORDERLINE [id number] mg/dL AND GREATER HIGH RISK Performed By: #### L [id number] ####[facility] (BEAKER)[address] [place] [address] Magnesium [Mass/Vol] 44 mg/dL Normal 0-160 [facility] Comment on above: Performed By: #### L [id number] ####[facility] (BEAKER)[address] [place] [address] Magnesium [Mass/Vol] 37 mg/dL Normal 23-92 [facility] Comment on above: Performed By: #### L [id number] ####[facility] (BEAKER)[address] [place] [address] NON HDL CHOL. (LDL+VLDL) 56 Normal [facility] Comment on above: Performed By: #### L [id number] ####[facility] (BEAKER)[address] [place] [address] TOTAL VLDL-C 12 mg/dL Normal 0-40 [facility] Comment on above: Performed By: #### L [id number] ####[facility] ([facility])[address] [place] [address] LIPOPROTEIN A (LPA)on 2023 Magnesium [Mass/Vol] 10 mg/dL Normal <=29 [facility] Comment on above: Result Comment: Perf ormed By: [id number] [place], [place] [address]Ysrpircdgd Director: Josh Olvera MD, PhDCLIA Number: [id number] Performed By: #### L [id number] ####[facility] ([facility])[address] [place] [address] MAGNESIUMon 02-26-2024 Magnesium [Mass/Vol] 1.7 mg/dL Low 1.9-2.7 [facility] Comment on above: Performed By: #### L [id number] ####[facility] ([facility])[address] [place] [address] PHOSPHORUSon 02-26-2024 Magnesium [Mass/Vol] 3.7 mg/dL Normal 2.5-5.0 [facility] Comment on above: Performed By: #### L [id number] ####[facility] (BEAKER)[address] [place] [address] TOXICOLOGY PANEL URINEon AMPHETAMINE+METHAMPHETAMIN E SCREEN (PRESENCE) IN URINE Negative Normal Negative [facility] Comment on above: Performed By: #### L [id number] ####[facility] (BEAKER)[address] [place] [address] BARBITURATES PRESENCE IN URINE BY SCREEN METHOD Negative Normal Negative [facility] Comment on above: Performed By: #### L [id number] ####[facility] (BEAKER)[address] [place] [address] Benzodiazepines Ql (U) Negative Normal Negative Un [facility] Comment on above: Performed By: #### L [id number] ####[facility] (BEAKER)[address] [place] [address] CANNABINOID (PRESENCE) IN URINE BY SCREEN METHOD Negative Normal Negative [facility] Comment on above: Performed By: #### L [id number] ####[facility] (BEAKER)[address] [place] [address] Cocaine Ql (U) Negative Normal Negative [facility] Comment on above: Performed By: #### L [id number] ####[facility] (BEAKER)[address] [place] [address] METHADONE (PRESENCE) IN URINE BY SCREEN METHOD Negative Normal Negative [facility] Comment on above: Performed By: #### L [id number] ####[facility] (BEAKER)[address] [place] [address] OPIATES (PRESENCE) IN URINE BY SCREEN METHOD Negative Normal Negative [facility] Comment on above: Performed By: #### L [id number] ####[facility] (BEAKER)[address] [place] [address] PHENCYCLIDINE PRESENCE IN URINE BY SCREEN METHOD Negative Normal Negative [facility] Comment on above: Performed By: #### L [id number] ####[facility] (BEAKER)[address] [place] [address] Propoxyphene Screen Ql (U) Negative Normal Negative [facility] Comment on above: Performed By: #### L [id number] ####[facility] (BEAKER)[address] [place] [address] TRICYCLIC ANTIDEPRESSANTS (PRESENCE) IN URINE Negative Normal Negative [facility] Comment on above: Performed By: #### L [id number] ####[facility] ([facility])[address] [facility] [address] TROPONIN Ion 02-26-2024 Troponin I.cardiac [Mass/Vol] 0.02 ng/mL Normal 0.00-0.04 [facility] Comment on above: Performed By: #### L [id number] ####[facility] ([facility])[address] [place] [address] Troponin I.cardiac [Mass/Vol] 0.02 ng/mL Normal 0.00-0.04 [facility] Comment on above: Performed By: #### L [id number] ####[facility] ([facility])[address] [place] [address] Troponin I.cardiac [Mass/Vol] 0.01 ng/mL Normal 0.00-0.04 [facility] Comment on above: Performed By: #### L [id number] ####[facility] ([facility])[address] [place] [address] TSHon 02-26-2024 THYROTROPIN (MIU/L) IN SER/PLAS BY DETECTION LIMIT <= 0.05 MIU/L 1.59 mIU/L Normal 0.34-5.60 [facility] Comment on above: Performed By: #### L [id number] ####[facility] ([facility])[address] [place] [address] CBC AND AUTO DIFFon 02-22-20 24 ABSOLUTE BASOPHIL 0.0 X10E9/L Normal 0.0-0.2 [facility] Comment on above: Performed By: #### P INR, 24299-9 #### [facility] ([id number]) [address] [place] [address], [place] [address] #### CBCA, CMP #### [facility] ([id number]) [address], [address] [place] [address] ABSOLUTE NEUTROPHIL 2.3 X10E9/L Normal 1.5-6.6 [facility] Comment on above: Performed By: #### P INR, 64988-5 #### [facility] ([id number]) [address] [place] [address] #### CBCA, CMP #### [facility] ([id number]) [address] [place] [address] Basophils/100 WBC (Bld) 0.7 % Normal P [facility] Comment on above: Performed By: #### P INR, 13882-5 #### [facility] ([id number]) [address] [place] [address] #### CBCA, CMP #### [facility] ([id number]) [address] [place] [address] Eosinophils (Bld) [#/Vol] 0.2 10*3/uL Normal 0.0-0.4 [place] Comment on above: Performed By: #### P INR, 37863-3 #### [facility] ([id number]) [address] [place] [address] 40327 #### CBCA, CMP #### [facility] ([id number]) [address] [place] [address] Eosinophils/100 WBC (Bld) 3.8 % Normal [place] Comment on above: Performed By: #### P INR, 84071-2 #### [facility] ([id number]) [address] [place] [address] 66946 #### CBCA, CMP #### [facility] ([id number]) [address], [address] [place] [address] Erythrocyte distribution width (RBC) [Ratio] 14.3 % Normal 11.5-15.0 [place] Comment on above: Performed By: #### P INR, 63939-1 #### [facility] ([id number]) [address] [place] [address] 37757 #### CBCA, CMP #### [facility] ([id number]) [address] [place] [address], [address] [place] [address] Hematocrit (Bld) [Volume fraction] 42.1 % Normal 39-49 [place] Comment on above: Performed By: #### P INR, 10921-5 #### [facility] ([id number]) [address] [place] [address] 19116 #### CBCA, CMP #### [facility] ([id number]) [address] [place] [address], [address] [place] [address] Hemoglobin (Bld) [Mass/Vol] 13.9 g/dL Normal 13.0-17.0 [place] Comment on above: Performed By: #### P INR, 70216-5 #### [facility] ([id number]) [address] [place] [address] 32199 #### CBCA, CMP #### [facility] ([id number]) [address] [place] [address], [address] [address] Lymphocytes (Bld) [#/Vol] 1.4 10*3/uL Normal 1.0-3.5 [place] Comment on above: Performed By: #### P INR, 44392-5 #### [facility] ([id number]) [address] [place] [address] 97736 #### CBCA, CMP #### [facility] ([id number]) [address] [place] [address], [address] [place] [address] Lymphocytes/100 WBC (Bld) 31.5 % Normal [place] Comment on above: Performed By: #### P INR, 28434-8 #### [facility] ([id number]) [address] [place] [address] 38029 #### CBCA, CMP #### [facility] ([id number]) [address], [address] [place] [address] MCH (RBC) [Entitic mass] 32.8 pg Normal 27-34 [place] Comment on above: Performed By: #### P INR, 05157-9 #### [facility] ([id number]) [address] [place] [address] 75726 #### CBCA, CMP #### [facility] ([id number]) [address] [place] [address] MCHC (RBC) [Mass/Vol] 32.9 g/dL Normal 32-36 [facility] Comment on above: Performed By: #### P INR, 44918-5 #### [facility] ([id number]) [address] [place] [address] 49182 #### CBCA, CMP #### [facility] ([id number]) [address] [place] [address] MCV (RBC) [Entitic vol] 100 fL Normal 80-100 P [facility] Comment on above: Performed By: #### P INR, 13874-6 #### [facility] ([id number]) [address] [place] [address] 69734 #### CBCA, CMP #### [facility] ([id number]) [address], [address] [place] [address] Monocytes (Bld) [#/Vol] 0.5 10*3/uL Normal 0-0.9 [place] Comment on above: Performed By: #### P INR, 67804-0 #### [facility] ([id number]) [address] [place] [address] 36505 #### CBCA, CMP #### [facility] ([id number]) [address], [address] [place] [address] Monocytes/100 WBC (Bld) 10.8 % Normal P [facility] Comment on above: Performed By: #### P INR, 88229-1 #### [facility] ([id number]) [address] [place] [address] 57689 #### CBCA, CMP #### [facility] ([id number]) [address], [address] [place] [address] Neutrophils/100 WBC (Bld) 53.2 % Normal [place] Comment on above: Performed By: #### P INR, 68961-0 #### [facility] ([id number]) [address] [place] [address] 67943 #### CBCA, CMP #### [facility] ([id number]) [address], [address] [place] [address] Platelet mean volume (Bld) [Entitic vol] 9.8 fL Normal 7-12 [place] Comment on above: Performed By: #### P INR, 23091-9 #### [facility] ([id number]) [address] [place] [address] 52575 #### CBCA, CMP #### [facility] ([id number]) [address], [address] [place] [address] Platelets (Bld) [#/Vol] 164 10*3/uL Normal 150-450 [place] Comment on above: Performed By: #### P INR, 36267-6 #### [facility] ([id number]) [address] [place] [address] 05839 #### CBCA, CMP #### [facility] ([id number]) [address], [address] [place] [address] RBC COUNT 4.22 X10E12/L Normal 4.10-5.70 [place] Comment on above: Performed By: #### P INR, 76928-7 #### [facility] ([id number]) [address] [place] [address] 57924 #### CBCA, CMP #### [facility] ([id number]) [address], [address] [place] [address] WBC (Bld) [#/Vol] 4.3 10*3/uL Normal 4.0-11.0 [facility] Comment on above: Performed By: #### P INR, 61148-5 #### [facility] ([id number]) [address] [place] [address] 25850 #### CBCA, CMP #### [facility] ([id number]) [address], [address] [place] [address] COMPREHENSIVE METABOLIC PANE [facility] 02-22-2024 Albumin [Mass/Vol] 3.4 g/dL Normal 3.2-5.3 [facility] Comment on above: Performed By: #### P INR, 53202-8 #### [facility] ([id number]) [address] [place] [address] 00872 #### CBCA, CMP #### [facility] ([id number]) [address], [address] [place] [address] ALP [Catalytic activity/Vol] 88 U/L Normal 39-130 [place] Comment on above: Performed By: #### P INR, 90722-3 #### [facility] ([id number]) [address] [place] [address] 45934 #### CBCA, CMP #### [facility] ([id number]) [address], [address] [place] [address] ALT [Catalytic activity/Vol] 15 U/L Normal 0-40 [place] Comment on above: Performed By: #### P INR, 74999-6 #### [facility] ([id number]) [address] [place] [address] 44784 #### CBCA, CMP #### [facility] ([id number]) [address] [place] [address] Anion gap [Moles/Vol] 8 mmol/L Normal 5-15 [facility] Comment on above: Performed By: #### P INR, 80042-9 #### [facility] ([id number]) [address] [place] [address] 65871 #### CBCA, CMP #### [facility] ([id number]) [address], [address] [place] [address] AST [Catalytic activity/Vol] 21 U/L Normal 0-41 [place] Comment on above: Performed By: #### P INR, 57053-3 #### [facility] ([id number]) [address] [place] [address] 20690 #### CBCA, CMP #### [facility] ([id number]) [address] [place] [address] Bilirubin [Mass/Vol] 0.5 mg/dL Normal 0.3-1.2 [facility] Comment on above: Performed By: #### P INR, 86303-6 #### [facility] ([id number]) [address] [place] [address] 96652 #### CBCA, CMP #### [facility] ([id number]) [address] [place] [address] Calcium [Mass/Vol] 8.9 mg/dL Normal 8.5-10.5 [facility] Comment on above: Performed By: #### P INR, 18161-0 #### [facility] ([id number]) [address] [place] [address] 40100 #### CBCA, CMP #### [facility] ([id number]) [address], [address] [place] [address] Chloride [Moles/Vol] 109 mmol/L Normal 98-109 [facility] Comment on above: Performed By: #### P INR, 65164-8 #### [facility] ([id number]) [address] [place] [address] 62516 #### CBCA, CMP #### [facility] ([id number]) [address] [place] [address] CO2 [Moles/Vol] 26 mmol/L Normal 22-32 [place] Comment on above: Performed By: #### P INR, 93581-4 #### [facility] ([id number]) [address] [place] [address] 04022 #### CBCA, CMP #### [facility] ([id number]) [address] [place] [address] Creatinine [Mass/Vol] 0.80 mg/dL Normal 0.60-1.30 [facility] Comment on above: Result Comment: METH OD TRACEABLE TO IDMS STANDARD Performed By: #### P INR, 81217-3 #### [facility] ([id number]) [address] [place] [address] 46573 #### CBCA, CMP #### [facility] ([id number]) [address] [place] [address] eGFR (CKD-EPI) NON-RACE DEPENDENT >90 Normal >59 [place] Comment on above: Result Comment: Reported eGFR is based on the CKD-EPI 1 equation that does not use a race coefficient. Performed By: #### P INR, 83401-7 #### [facility] ([id number]) [address] [place] [address] 97473 #### CBCA, CMP #### [facility] ([id number]) [address] [place] [address] Glucose [Mass/Vol] 106 mg/dL High 65-99 [facility] Comment on above: Performed By: #### P INR, 19472-7 #### [facility] ([id number]) [address] [place] [address] 22136 #### CBCA, CMP #### [facility] ([id number]) [address] [place] [address] Potassium [Moles/Vol] 3.4 mmol/L Low 3.5-5.0 [facility] Comment on above: Performed By: #### P INR, 51460-6 #### [facility] ([id number]) [address] [place] [address] 73505 #### CBCA, CMP #### [facility] ([id number]) [address] [place] [address] Protein [Mass/Vol] 6.8 g/dL Normal 6.0-8.0 [facility] Comment on above: Performed By: #### P INR, 35082-2 #### [facility] ([id number]) [address] [place] [address] 83027 #### CBCA, CMP #### [facility] ([id number]) [address] [place] [address] Sodium [Moles/Vol] 143 mmol/L Normal 134-146 [facility] Comment on above: Performed By: #### P INR, 29390-3 #### [facility] ([id number]) [address] [place] [address] 49185 #### CBCA, CMP #### [facility] ([id number]) [address] [place] [address] Urea nitrogen [Mass/Vol] 15 mg/dL Normal 5-27 [place] Comment on above: Performed By: #### P INR, 58292-8 #### [facility] ([id number]) [address] [place] [address] 55784 #### CBCA, CMP #### [facility] ([id number]) [address] [place] [address] PROTIME AND INRon 02-22-2024 INR Coag (PPP) [Relative time] 1.2 {INR} High 0.8-1.1 [place] Comment on above: Performed By: #### P INR, 73076-3 #### [facility] ([id number]) [address] [place] [address] 87007 #### CBCA, CMP #### [facility] ([id number]) [address] [address] [place] [address] PT Coag (PPP) [Time] 14.1 s High 9.8-13.2 [facility] Comment on above: Result Comment: NEW REFERENCE RANGE Performed By: #### P INR, 64914-6 #### [facility] ([id number]) [address] [place] [address] 70433 #### CBCA, CMP #### [facility] ([id number]) [address] [place] [address] aPTT Coag (PPP) [Time]on aPTT Coag (Bld) [Time] 39 s High 26-37 [facility] Comment on above: Result Comment: NEW REFERENCE RANGE Performed By: #### P INR, 08281-0 #### [facility] ([id number]) [address] [place] [address] 01032 #### CBCA, CMP #### [facility] ([id number]) [address] [facility] [place] [address] NURSNOTEon 02-19-2024 NURSNOTE Normal [facility] HPon 02-09-2024 HP Normal [facility] 36on 02-08-2024 36 Normal [facility] Vital Signs Date Time Vital Sign Value Performing Clinician Facility 07-04-2024 15:51-0500 Body temperature 97.81 [degF] Ru Schwarz MD Work Phone: [facility] 07-04-2024 15:51-0500 Diastolic blood pressure 59 mm[Hg] Ru Schwarz MD Work Phone: [facility] 07-04-2024 15:51-0500 Heart rate 62 /min Ru Schwarz MD Work Phone: [facility] 07-04-2024 15:51-0500 Respiratory rate 19 /min Ru Schwarz MD Work Phone: [facility] 07-04-2024 15:51-0500 SaO2% (BldA) [Mass fraction] 94 % Ru Schwarz MD Work Phone: [facility] 07-04-2024 15:51-0500 Systolic blood pressure 122 mm[Hg] Ru Schwarz MD Work Phone: [facility] 07-04-2024 04:36-0500 Body mass index (BMI) [Ratio] 30.08 kg/m2 Ru Schwarz MD Work Phone: [facility] 07-04-2024 04:36-0500 Body weight 100.6 kg Ru Schwraz MD Work Phone: [facility] 06-29-2024 12:17-0500 Body height 182.9 cm Ru Schwarz MD Work Phone: [facility] Encounters Encounter Date Encounter Type Care Provider Facility Start: 01-06-2025 End: 01-06-2025 ambulatory [facility] Start: 01-01-2025 ambulatory FRANCISCO RUBIN [facility] Start: 12-19-2024 End: 12-19-2024 ambulatory [facility] Start: 12-09-2024 End: 12-09-2024 [facility] Start: 11-29-2024 End: 11-29-2024 ambulatory [facility] Start: 11-25-2024 ambulatory [facility] Start: 11-25-2024 Encounter for preprocedural cardiovascular examination [facility] Start: 11-18-2024 End: 11-18-2024 ambulatory [facility] Start: 11-12-2024 End: 11-13-2024 ambulatory [facility] Start: 10-30-2024 End: 11-01-2024 ambulatory [facility] Start: 10-17-2024 ambulatory [facility] Start: 10-08-2024 ambulatory [facility] Start: 09-04-2024 End: 09-04-2024 ambulatory [facility] Start: 08-30-2024 End: 08-30-2024 ambulatory ABE FERNÁNDEZ [facility] Start: 08-29-2024 End: 08-29-2024 ambulatory Kelvin Langston Facility:[facility] Start: 08-29-2024 End: 08-29-2024 Departed Referred Kelvin Langston MD Work Phone: [facility] Start: 08-28-2024 ambulatory [facility] Start: 08-27-2024 ambulatory [facility] Start: 08-09-2024 End: 08-09-2024 [facility] Start[facility] 08-01-2024 ambulatory [facility] Start: 08-01-2024 ambulatory [facility] Start: 07-19-2024 End: 07-19-2024 ambulatory [facility] Start: 07-16-2024 End: 07-16-2024 ambulatory [facility] Start: 07-09-2024 End: 07-10-2024 Emergency department patient visit [facility] Start: 07-08-2024 End: 07-08-2024 ambulatory [facility] Start: 07-05-2024 End: 07-06-2024 Emergency department patient visit [facility] Start: 07-05-2024 End: 07-05-2024 Telephone encounter Angela Owusu [facility] Amparo silva Comment on above: Blood in Urine Start: 07-02-2024 End: 07-02-2024 ambulatory [facility] Start: 06-29-2024 End: 07-04-2024 Evaluation and management of inpatient Antoine Burleson Do, MD Work Phone: [facility] Acute Comment on above: Fall in home, initia l encounter (Primary Dx); Acute blood loss anemia Start: 06-28-2024 End: 06-29-2024 Emergency department patient visit [facility] Start: 06-26-2024 Emergency department patient visit [facility] Start: 06-26-2024 End: 06-26-2024 Emergency department patient visit [facility] Start: 06-19-2024 End: 06-19-2024 ambulatory [facility] Start: 05-30-2024 ambulatory [facility] Start: 05-21-2024 End: 05-21-2024 ambulatory [facility] Start: 05-21-2024 End: 05-21-2024 ambulatory [facility] Start: 05-15-2024 End: 05-15-2024 ambulatory Kelvin Langston [facility] Work Phone: Start: 05-15-2024 End: 05-15-2024 Departed Referred Kelvin Langston MD Work Phone: [facility] Start: 05-06-2024 ambulatory [facility] Start: 05-06-2024 ambulatory [facility] Start: 04-30-2024 End: 04-30-2024 ambulatory [facility] Start: 04-24-2024 End: 04-24-2024 ambulatory [facility] Start: 04-19-2024 End: 04-19-2024 ambulatory [facility] Start: 04-02-2024 End: 04-03-2024 ambulatory [facility] Start: 03-13-2024 End: 03-14-2024 ambulatory [facility] Start: 03-05-2024 Evaluation and manag ement of inpatient [facility] Start: 03-01-2024 Evaluation and manag ement of inpatient [facility] Start: 02-28-2024 Evaluation and manag ement of inpatient [facility] Start: 02-28-2024 Evaluation and manag ement of inpatient [facility] Start: 02-27-2024 Evaluation and manag ement of inpatient [facility] Start: 02-27-2024 Evaluation and manag ement of inpatient [facility] Start: 02-26-2024 Evaluation and manag ement of inpatient [facility] Start: 02-26-2024 Evaluation and manag ement of inpatient [facility] Start: 02-26-2024 Evaluation and manag ement of inpatient [facility] Start: 02-26-2024 End: 02-26-2024 ambulatory [facility] Start: 02-26-2024 End: 03-06-2024 Evaluation and management of inpatient SAILAJA YOUNGBLOOD [facility] Start: 02-22-2024 End: 02-22-[address] [facility] Start: 02-09-2024 End: 02-09-2024 ambulatory [facility] Start: 02-09-2024 End: 02-09-2024 ambulatory [facility] Start: 02-09-2024 End: 02-09-2024 ambulatory [facility] Start: 01-10-2024 End: 01-10-2024 ambulatory RANDOLPH [facility] Start: 12-29-2023 ambulatory Nova M. Lue Facility:[facility] Start: 12-26-2023 End: 12-26-2023 ambulatory TABITHA LEUNG Facility:[facility] Start: 12-26-2023 End: 12-26-2023 Patient encounter procedure TABITHA LEUNG [facility] Start: 12-19-2023 ambulatory Nova M. Lue Facility:[facility] Start: 12-12-2023 End: 12-13-2023 ambulatory Nova M. Lue Facility:[id number] Start: 12-12-2023 End: 12-12-2023 ambulatory Nova M. Lue Facility:[id number] Procedures Date Procedure Procedure Detail [...] mntr dev cleared fda spec home use uR Schwarz MD Work Phone: Start: 07-02-2024 Gluc [...] Author Start: 06-29-2025 Depression Screening Depression Screening [facility] Start: 06-29-2025 Tobacco Screening Tobacco Screening [facility] Start: 08-29-2024 Bacteria identified in Urine by Culture Urine Culture [facility] Start: 08-29-2024 Urine culture [facility] Start: 05-15-2024 Bacteria identified in Urine by Culture Urine Culture [facility] Start: 05-15-2024 Urine culture [facility] Start: 01-14-2024 Influenza vaccination Influenza Vaccine [facility] Start: 2010 Fall Risk Screening Fall Risk Screening [facility] Start: 08-19-1995 Administration of varicella zoster vaccine Zoster (Shingles) Vaccine (1 of 2) [facility] Start: 1964 DTaP,Tdap and Td Vaccines (1 - Tdap) DTaP,Tdap and Td Vaccines (1 - Tdap) [facility] Immunizations Immunization Date Immunization Notes Care Provider Landon kirkpatrick 06-29-2024 pneumococcal conj. 20-valent (PREVNAR-20) vaccine 0.5 mL Ru Schwarz MD Work Phone: [facility] 06-29-2024 flu vacc [id number] 6 mos up(PF) (FLULAVAL/FLUZONE/FLUAR IX TRIV) injection syringe 0.5 mL Ru Schwarz MD Work Phone: [facility] Payers Date Payer Category Payer Self-pay 2023 Medicare HMO [employer] [id number] 2021 Unknown [id number] 1945 Unknown [id number] 1945 Unknown [id number] 2.16.840.1.438648.3.579.2.727 1945 Unknown [id number] 2.16.840.1.569495.3.579.2.727 1945 Unknown [id number] 2.16840.1.283191.3.579.2.727 1945 Unknown [id number] 2.16840.1.420524.3.579.2.727 1945 Unknown [id number] 2.16.840.1.812989.3.579.2.128 6 1945 Unknown [id number] 2.16.840.1.200313.3.579.2.128 6 1945 Unknown [id number] 2.16840.1.875198.3.579.2.128 6 1945 Unknown [id number] 2.16840.1.895232.3.579.2.128 6 1945 Unknown [id number] 2.16.840.1.085971.3.579.2.128 6 1945 Unknown [id number] 2.16.840.1.316842.3.579.2.128 6 1945 Unknown [id number] 2.16.840.1.275884.3.579.2.128 6 1945 Unknown [id number] 2.16.840.1.435623.3.579.2.128 6 1945 Unknown [id number] 2.16.840.1.942166.3.579.2.128 6 Unknown [id number] 2.16.840.1.262659.3.579.2.531 Unknown [id number] 2.16.840.1.132445.3.579.2.531 Social History Date Type Detail Facility Tobacco smoking status [facility] Start: 06-29-2024 End: 07-05-2024 Sex Assigned At Male [facility] Tobacco smoking stat [facility] Unknown if ever smoked [facility] Work Phone: Start: 05-16-2024 End: 08-31-2024 Sex Male (finding) [facility] Start: 1945 Sex Assigned At Male F [facility] Start: 06-28-2024 [facility] End: 05-15-2008 History of tobacco use Current smoker [facility] End: 05-15-2008 History of tobacco use Cigarette Smoker [facility] Start: 06-28-2024 Tobacco use and exposure Smokeless tobacco non-user [facility] Start: 06-29-2024 Alcoholic beverage intake Ex-drinker (finding) [facility] Start: 06-29-2024 End: 07-05-2024 History of Social function [facility] Has the [employer], or [employer] threatened to shut off services in your home in past 12Mo No [facility] [employer] Adolescent depressio n screening assessment 2 [facility] Start: 1945 Sex assigned at Not on file P [facility] [employer] Goals Date Patient Goal Desired Activity /State Personal health goal Comment on above: Formatting of this n ote might be different from the original. Evaluation of progress towards goal: home with son and daughter in law Functional Status Date Assessment Result [facility] Status Date Assessment Result [facility] Clinical Notes 01-10-2024 to 01-06-2025 Telephone Encounter - Angela Owusu - 07/05/2024 7:30 PM ESTTelephone Encounter - Angela Owusu - 07/05/2024 7:30 PM ESTTelephone Encounter - Angela Owusu - 07/05/2024 7:30 PM ESTAppointments Note Date & Type Note Facility 01-06-2025 Note [facility] 12-09-2024 Note [facility] 11-29-2024 Note [facility] 11-18-2024 Note [facility] 11-12-2024 Note [facility] 11-12-2024 Note [facility] 10-30-2024 Note [facility] 10-30-2024 Note [facility] 10-17-2024 Note [facility] 10-17-2024 Note Renal us [facility] 09-04-2024 Note Renal condition is i mproving with treatment. Regular aerobic exercise. Renal condition will be reassessed in 1 month. No associated orders from this encounter found during lookback period of 72 hours. [facility] 09-04-2024 Note [facility] 09-04-2024 Note H&P reviewed. The maria a garcia was examined and there are no changes to the H&P. [facility] 08-29-2024 Note [facility] asking for revised order as diagnosis code did not pass medical necessity. [facility] 08-28-2024 Note [facility] 07-19-2024 Note [facility] 07-05-2024 Miscellaneous Notes Contract: 195 re Hematuria for Patient Call was connected to Dr Santa griffin documented in this encounter [facility] [email or web address] 07-05-2024 Telephone encounter Note Contract: 195 re Hematuria for Patient [facility] 07-05-2024 Telephone encounter Note Call was connected to Dr Santa griffin [facility] 07-04-2024 Nurse Note 1545 Report called to RAS Martinez at [facility]. Confirmed bulk picker time from PTN, ontime. Pt updated. IV removed. 1715: Report given to transport team. Pt discharged in stable condition. [facility] 07-04-2024 Nurse Note 1545 Report called to RAS Martinez at [facility]. Confirmed bulk picker time from PTN, ontime. Pt updated. IV removed. 1715: Report given to transport team. Pt discharged in stable condition. Pt pulse ox at 84%, pt placed on 2 liters of oxygen, notified patients nurse Ligia Soliz Rn of 02 placement. Pt resting quietly. documented in this encounter [facility] 07-04-2024 Plan of care note Problem: Pain Goal: Patient goal is pain score less than 4, able to rest, and participant in treatment plan as appropriate Description: INTERVENTIONS: 1. Encourage patient or legal cash applications representative to report early pain and ask [...] per policy 9. Teach patient or legal cash applications representative interventions for comforting Outcome: Adequate for [...] at the bedside 7. Instruct patient/ patient cash applications representative about use of safety devices 8. Include patient/ patient cash applications representative in decisions related to safety Outcome: Adequate for Discharge Note: Evaluation of progress towards goal: Pt will remain free from injury Problem: Moderate - High Risk Fall Score Description: [place] Fall Score of =/> 25 or indicated by [facility] Assessment Goal: Patient should be free from fall Description: Interventions: 1. [place] to environment 2. Hourly rounds addressing the [...] non-skid footwear 11. Teach patient and patient cash applications representative to maintain environment for safety and [...] (cane, walker) within reach 19. Request patient cash applications representative bring adaptive equipment/mobility aids from home or obtain and provide as needed 20. Consult pharmacy regarding effects of med's affecting mobility, cognition, and alternatives 21. Obtain physician order for PT if risk factors associated with mobility are present 22. Obtain physician order for OT as appropriate 23. Utilize diversional activities 24. Educate patient and patient cash applications representative how to maintain a safe environment during visitation times (notify nurse prior to leaving bedside) 25. Consider appropriateness of medical or non-medical diagnostic radiographer 26. Set up voiding schedule as appropriate (every 2 hours) Outcome: Adequate for Discharge Note: Evaluation of progress towards goal: Remain free from falls [facility] [employer] 07-04-2024 Miscellaneous Notes Problem: Pain Goal: Patient goal is pain score less than 4, able to rest, and participant in treatment plan as appropriate Description: INTERVENTIONS: 1. Encourage patient or legal cash applications representative to report early pain and ask [...] per policy 9. Teach patient or legal cash applications representative interventions for comforting Outcome: Adequate for [...] at the bedside 7. Instruct patient/ patient cash applications representative about use of safety devices 8. Include patient/ patient cash applications representative in decisions related to safety Outcome: Adequate for Discharge Note: Evaluation of progress towards goal: Pt will remain free from injury Problem: Moderate - High Risk Fall Score Description: Issa Fall Score of =/> 25 or indicated by [facility] Assessment Goal: Patient should be free from fall Description: Interventions: 1. [place] to environment 2. Hourly rounds addressing the [...] non-skid footwear 11. Teach patient and patient cash applications representative to maintain environment for safety and [...] (cane, walker) within reach 19. Request patient cash applications representative bring adaptive equipment/mobility aids from home or obtain and provide as needed 20. Consult pharmacy regarding effects of med's affecting mobility, cognition, and alternatives 21. Obtain physician order for PT if risk factors associated with mobility are present 22. Obtain physician order for OT as appropriate 23. Utilize diversional activities 24. Educate patient and patient cash applications representative how to maintain a safe environment during visitation times (notify nurse prior to leaving bedside) 25. Consider appropriateness of medical or non-medical diagnostic radiographer 26. Set up voiding schedule as appropriate (every 2 hours) Outcome: Adequate for Discharge Note: Evaluation of progress towards goal: Remain free from falls DISCHARGE PLANNING NOTE Case discussed in daily transition rounds and chart reviewed by CN. Barriers to discharge include no medical barriers Discharge Plan remains: [place] [facility] aware of dc order today-transport ambulette bulk picker time is 4pm. HENS complete. CRF in dc packet and sent to [place]. Patient aware of dc at 4p as well. CN will continue to follow and is available should any further needs arise. - Julisa Del Toro RN 07/04/24 11:25 AM Problem: Pain Goal: Patient goal is pain score less than 4, able to rest, and participant in treatment plan as appropriate Description: INTERVENTIONS: 1. Encourage patient or legal cash applications representative to report early pain and ask [...] per policy 9. Teach patient or legal cash applications representative interventions for comforting Outcome: Progressing Note: [...] at the bedside 7. Instruct patient/ patient cash applications representative about use of safety devices 8. Include patient/ patient cash applications representative in decisions related to safety Outcome: [...] hygiene technique. 7. Identify and instruct patient/patient cash applications representative in use of appropriate isolation precautions for identified infection/symptoms. 8. Provide and discuss with patient/patient cash applications representative on educational MDRO sheet. 9. Encourage and monitor nutritional status daily and consult refrigeration specialist if indicated. 10. Implement neutropenic guidelines as needed. Outcome: Progressing Note: Evaluation of progress towards goal: Pt is afebrile and will remain free from signs of infection during shift. Labs and PIV insertion site being monitored Problem: Knowledge Deficit Goal: Patient/patient cash applications representative demonstrates understanding of disease process, treatment [...] goal: Discharge planning in process. Plan is [place] Problem: Potential for Compromised Skin Integrity Goal: [...] supplement as ordered 13. Collaborate with clinical refrigeration specialist 14. Include patient/ patient's cash applications representative in decisions related to nutrition Outcome: Progressing Note: Evaluation of progress towards goal: pt is consuming an adequate amt of meals Problem: Moderate - High Risk Fall Score Description: Issa Fall Score of =/> 25 or indicated by [facility] Assessment Goal: Patient should be free from fall Description: Interventions: 1. [place] to environment 2. Hourly rounds addressing the [...] non-skid footwear 11. Teach patient and patient cash applications representative to maintain environment for safety and [...] (cane, walker) within reach 19. Request patient cash applications representative bring adaptive equipment/mobility aids from home or obtain and provide as needed 20. Consult pharmacy regarding effects of med's affecting mobility, cognition, and alternatives 21. Obtain physician order for PT if risk factors associated with mobility are present 22. Obtain physician order for OT as appropriate 23. Utilize diversional activities 24. Educate patient and patient cash applications representative how to maintain a safe environment during visitation times (notify nurse prior to leaving bedside) 25. Consider appropriateness of medical or non-medical diagnostic radiographer 26. Set up voiding schedule as appropriate [...] transport via PTN confirmed in [facility] to [place] 07.04.24 at 12:00pm DISCHARGE PLANNING NOTE Prior Auth approved for admission to : [facility], [place], [place] (P# ; F# ) Approval # [id number] Valid for Dates: 07/03/2024-07/09/2024 Problem: Pain Goal: Patient goal is pain score less than 4, able to rest, and participant in treatment plan as appropriate Description: INTERVENTIONS: 1. Encourage patient or legal cash applications representative to report early pain and ask [...] per policy 9. Teach patient or legal cash applications representative interventions for comforting Outcome: Adequate for [...] at the bedside 7. Instruct patient/ patient cash applications representative about use of safety devices 8. Include patient/ patient cash applications representative in decisions related to safety Outcome: Adequate for Discharge Note: Evaluation of progress towards goal: Patient safety maintained during shift with use of 5 rights, patient and staff using hygiene, patient environment free of harm and debrie. Will continue to monitor during shift. Problem: Knowledge Deficit Goal: Patient/patient cash applications representative demonstrates understanding of disease process, treatment [...] =/> 25 or indicated by [facility] Assessment Goal: Patient should be free from fall Description: Interventions: 1. [place] to environment 2. Hourly rounds addressing the [...] non-skid footwear 11. Teach patient and patient cash applications representative to maintain environment for safety and [...] (cane, walker) within reach 19. Request patient cash applications representative bring adaptive equipment/mobility aids from home or obtain and provide as needed 20. Consult pharmacy regarding effects of med's affecting mobility, cognition, and alternatives 21. Obtain physician order for PT if risk factors associated with mobility are present 22. Obtain physician order for OT as appropriate 23. Utilize diversional activities 24. Educate patient and patient cash applications representative how to maintain a safe environment during visitation times (notify nurse prior to leaving bedside) 25. Consider appropriateness of medical or non-medical diagnostic radiographer 26. Set up voiding schedule as appropriate [...] SW received return call from ashok barroso. [employer] would like auth to be started with [facility]. SW tasked [facility] to start auth. - FALLON ASHFORD 07/03/24 3:03 PM SW informed patient of DC tomorrow. SW also called patient son of discharge tomorrow at 4pm. SW tasked [facility] to set up transport. - FALLON ASHFORD 07/03/24 3:53 PM Problem: Pain Goal: Patient goal is pain score less than 4, able to rest, and participant in treatment plan as appropriate Description: INTERVENTIONS: 1. Encourage patient or legal cash applications representative to report early pain and ask [...] per policy 9. Teach patient or legal cash applications representative interventions for comforting Outcome: Progressing Note: [...] at the bedside 7. Instruct patient/ patient cash applications representative about use of safety devices 8. Include patient/ patient cash applications representative in decisions related to safety Outcome: [...] hygiene technique. 7. Identify and instruct patient/patient cash applications representative in use of appropriate isolation precautions for identified infection/symptoms. 8. Provide and discuss with patient/patient cash applications representative on educational MDRO sheet. 9. Encourage and monitor nutritional status daily and consult refrigeration specialist if indicated. 10. Implement neutropenic guidelines as needed. Outcome: Progressing Note: Evaluation of progress towards goal: patient remains afebrile, will continue to monitor labs Problem: Knowledge Deficit Goal: Patient/patient cash applications representative demonstrates understanding of disease process, treatment [...] supplement as ordered 13. Collaborate with clinical refrigeration specialist 14. Include patient/ patient's cash applications representative in decisions related to nutrition Outcome: [...] be free from fall Description: Interventions: 1. [place] to environment 2. Hourly rounds addressing the [...] non-skid footwear 11. Teach patient and patient cash applications representative to maintain environment for safety and [...] (cane, walker) within reach 19. Request patient cash applications representative bring adaptive equipment/mobility aids from home or obtain and provide as needed 20. Consult pharmacy regarding effects of med's affecting mobility, cognition, and alternatives 21. Obtain physician order for PT if risk factors associated with mobility are present 22. Obtain physician order for OT as appropriate 23. Utilize diversional activities 24. Educate patient and patient cash applications representative how to maintain a safe environment during visitation times (notify nurse prior to leaving bedside) 25. Consider appropriateness of medical or non-medical diagnostic radiographer 26. Set up voiding schedule as appropriate (every 2 hours) Outcome: Progressing Note: Evaluation of progress towards goal: patient remains free from falls Physical Therapy Evaluation Discharge Recommendations PT Recommendations: Residential Facility SNF/ECF Comments: Recommend SNF as pt [...] 6 Clicks: Basic Mobility Raw Score: 13 [facility] G Code Modifier: CK Therapy Plan Need [...] lithotripsy and stent placed on 06/19/24 at [facility]. Past Medical History: Diagnosis [place]2024 Coronary artery disease Dementia [place] Fall in home, initial encounter 06/29/2024 Hemorrhoids Hyperlipidemia Hypertension Kidney stone Memory loss Myocardial infarction [place] Urinary tract infection History reviewed. No pertinent [...] ok for PT/OT--OOB. Equipment: gait belt, RW Telemetry/Trolley Car Mechanic: Yes Oxygen Order : SpO2 90% or [...] Goal: Patient will perform transfers with Modified [place] Dates: Start: 07/02/24 Expected End: 07/25/24 Description: Goal Description: Disciplines: PT Physical Therapy Care Plan (Resolved) There are no resolved problems. Principal Problem: Fall in home, initial encounter Occupational Therapy Evaluation Discharge Recommendations OT Recommendations : Residential Facility SNF/ECF Comments: recommend SNF at discharge [...] little Scoring Daily Activity Raw Score: 13 [facility] G Code Modifier: CL Pt admit 06/29/24 after fall from standing. Pt hypotensive on arrival s/p 3 units of PRBC. Dx: L renal hematoma, hypotension, acute blood loss anemia Urology consulted. Pt with hematuria, maintain jorgensen catheter. Pt with h/o lithotripsy with stent placement at [facility] on 06/19/24 Past Medical History: Diagnosis Date [place] 02/2024 Coronary artery disease Dementia [place] Fall in home, initial encounter 06/29/2024 Hemorrhoids Hyperlipidemia Hypertension Kidney stone Memory loss Myocardial infarction [place] Urinary tract infection History reviewed. No pertinent [...] mobility guideline:yes, pass Equipment: gait belt, RW Telemetry/Trolley Car Mechanic: Yes Oxygen Order : spo2 90% or [...] Description: INTERVENTIONS: 1. Encourage patient or legal cash applications representative to report early pain and ask [...] per policy 9. Teach patient or legal cash applications representative interventions for comforting Outcome: Progressing Note: [...] at the bedside 7. Instruct patient/ patient cash applications representative about use of safety devices 8. Include patient/ patient cash applications representative in decisions related to safety Outcome: [...] hygiene technique. 7. Identify and instruct patient/patient cash applications representative in use of appropriate isolation precautions for identified infection/symptoms. 8. Provide and discuss with patient/patient cash applications representative on educational MDRO sheet. 9. Encourage and monitor nutritional status daily and consult refrigeration specialist if indicated. 10. Implement neutropenic guidelines as needed. Outcome: Progressing Note: Evaluation of progress towards goal: pt is afebrile and free from s/s of infection. Will continue to monitor Problem: Knowledge Deficit Goal: Patient/patient cash applications representative demonstrates understanding of disease process, treatment [...] supplement as ordered 13. Collaborate with clinical refrigeration specialist 14. Include patient/ patient's cash applications representative in decisions related to nutrition Outcome: [...] be free from fall Description: Interventions: 1. [place] to environment 2. Hourly rounds addressing the [...] non-skid footwear 11. Teach patient and patient cash applications representative to maintain environment for safety and [...] (cane, walker) within reach 19. Request patient cash applications representative bring adaptive equipment/mobility aids from home or obtain and provide as needed 20. Consult pharmacy regarding effects of med's affecting mobility, cognition, and alternatives 21. Obtain physician order for PT if risk factors associated with mobility are present 22. Obtain physician order for OT as appropriate 23. Utilize diversional activities 24. Educate patient and patient cash applications representative how to maintain a safe environment during visitation times (notify nurse prior to leaving bedside) 25. Consider appropriateness of medical or non-medical diagnostic radiographer 26. Set up voiding schedule as appropriate [...] should any further needs arise. - Julisa DelT oro RN 07/02/24 11:04 AM PT/OT recommend SNF. List given to patient. Patient Stated his son makes all the decisions. Called son Ashok. Ashok would like [facility]-he has been there before. Referral sent. - [...] Description: INTERVENTIONS: 1. Encourage patient or legal cash applications representative to report early pain and ask [...] per policy 9. Teach patient or legal cash applications representative interventions for comforting Outcome: Progressing Note: [...] at the bedside 7. Instruct patient/ patient cash applications representative about use of safety devices 8. Include patient/ patient cash applications representative in decisions related to safety Outcome: [...] hygiene technique. 7. Identify and instruct patient/patient cash applications representative in use of appropriate isolation precautions for identified infection/symptoms. 8. Provide and discuss with patient/patient cash applications representative on educational MDRO sheet. 9. Encourage and monitor nutritional status daily and consult refrigeration specialist if indicated. 10. Implement neutropenic guidelines as needed. Outcome: Progressing Note: Evaluation of progress towards goal: patient remains afebrile, will continue to monitor labs Problem: Knowledge Deficit Goal: Patient/patient cash applications representative demonstrates understanding of disease process, treatment [...] =/> 25 or indicated by [facility] Assessment Goal: Patient should be free from fall Description: Interventions: 1. [place] to environment 2. Hourly rounds addressing the [...] non-skid footwear 11. Teach patient and patient cash applications representative to maintain environment for safety and [...] (cane, walker) within reach 19. Request patient cash applications representative bring adaptive equipment/mobility aids from home or obtain and provide as needed 20. Consult pharmacy regarding effects of med's affecting mobility, cognition, and alternatives 21. Obtain physician order for PT if risk factors associated with mobility are present 22. Obtain physician order for OT as appropriate 23. Utilize diversional activities 24. Educate patient and patient cash applications representative how to maintain a safe environment during visitation times (notify nurse prior to leaving bedside) 25. Consider appropriateness of medical or non-medical diagnostic radiographer 26. Set up voiding schedule as appropriate (every 2 hours) Outcome: Progressing Note: Evaluation of progress towards goal: patient remains free from falls Images from the original note were not included. DISCHARGE PLANNING NOTE Auto Wheel Alignment Specialist met with patient, introduced self, and explained role. Patient educated on safe discharge plan. Pt admitted 06/29/2024 with Acute blood loss anemia [D62] Fall in home, initial encounter [W19.XXXA, Y92.009] per chart review. Consults: Trauma and Urology Discharge Barriers per Daily Transition Rounds and chart review: PT/OT eval, bilat duplex, oxygen, H&H q12 Past Medical History: Diagnosis Date [place] 02/2024 Coronary artery disease Dementia [place] Fall in home, initial encounter 06/29/2024 Hemorrhoids Hyperlipidemia Hypertension Kidney stone Memory loss Myocardial infarction [place] Urinary tract infection Prior to admission patient [...] steps into home. PCP: REINALDO CHAKRABORTY Pharmacy: [facility] PCP and pharmacy confirmed [...] daughter in laws house Sons address is [address] [place] [address] Services Requested: Services Requested Patient expects to [...] Description: INTERVENTIONS: 1. Encourage patient or legal cash applications representative to report early pain and ask [...] per policy 9. Teach patient or legal cash applications representative interventions for comforting Outcome: Progressing Note: [...] at the bedside 7. Instruct patient/ patient cash applications representative about use of safety devices 8. Include patient/ patient cash applications representative in decisions related to safety Outcome: [...] hygiene technique. 7. Identify and instruct patient/patient cash applications representative in use of appropriate isolation precautions for identified infection/symptoms. 8. Provide and discuss with patient/patient cash applications representative on educational MDRO sheet. 9. Encourage and monitor nutritional status daily and consult refrigeration specialist if indicated. 10. Implement neutropenic guidelines as needed. Outcome: Progressing Note: Evaluation of progress towards goal: Problem: Knowledge Deficit Goal: Patient/patient cash applications representative demonstrates understanding of disease process, treatment [...] supplement as ordered 13. Collaborate with clinical refrigeration specialist 14. Include patient/ patient's cash applications representative in decisions related to nutrition Outcome: [...] =/> 25 or indicated by [facility] Assessment Goal: Patient should be free from fall Description: Interventions: 1. Hawthorne to environment 2. Hourly rounds addressing the [...] non-skid footwear 11. Teach patient and patient cash applications representative to maintain environment for safety and [...] (cane, walker) within reach 19. Request patient cash applications representative bring adaptive equipment/mobility aids from home or obtain and provide as needed 20. Consult pharmacy regarding effects of med's affecting mobility, cognition, and alternatives 21. Obtain physician order for PT if risk factors associated with mobility are present 22. Obtain physician order for OT as appropriate 23. Utilize diversional activities 24. Educate patient and patient cash applications representative how to maintain a safe environment during visitation times (notify nurse prior to leaving bedside) 25. Consider appropriateness of medical or non-medical diagnostic radiographer 26. Set up voiding schedule as appropriate [...] Description: INTERVENTIONS: 1. Encourage patient or legal cash applications representative to report early pain and ask [...] per policy 9. Teach patient or legal cash applications representative interventions for comforting Outcome: Progressing Note: [...] at the bedside 7. Instruct patient/ patient cash applications representative about use of safety devices 8. Include patient/ patient cash applications representative in decisions related to safety Outcome: [...] Description: INTERVENTIONS: 1. Encourage patient or legal cash applications representative to report early pain and ask [...] per policy 9. Teach patient or legal cash applications representative interventions for comforting Outcome: Progressing Note: [...] at the bedside 7. Instruct patient/ patient cash applications representative about use of safety devices 8. Include patient/ patient cash applications representative in decisions related to safety Outcome: [...] Limitations: Strict bedrest documented in this encounter [facility] 07-04-2024 History of Present illness Narrative [facility] Department of Pharmacy Pharmacy-Physician Communication Pt name: Neptali Loyola Room: [place] [address] Ru Schwarz MD, Neptali Loyola [...] at the same dose and frequency per [facility] approved policy. Thank you. If we can offer more assistance, please feel free to call us at [phone]. Ismael Flores RPH Images from the original note were not included. oSnido Trinidad Jr., M.D., Caden Friedman M.D., Mookie [...] Procedure Component Value Units Date/Time Urine culture [[id number]] Collected: 06/29/24 0206 Specimen: Urine from Jorgensen Catheter Specimen Updated: 06/30/24721 Specimen Notes URINE RECEIVED WITHOUT PRESERVATIVE Culture NO GROWTH AT <1000 CFU/mL Urine culture [[id number]] Collected: 06/28/24 210 Specimen: Urine from Jorgensen Catheter Specimen Updated: 06/30/24 0908 Culture NO GROWTH AT <1000 CFU/mL Blood culture, peripheral #1 [[id number]] Collected: 06/28/241909 Specimen: Blood Updated: 07/02/242229 Specimen Notes PENDING Culture NO GROWTH 4 DAYS Blood culture, peripheral #2 [[id number]] Collected: 06/28/24 190 Specimen: Blood Updated: 07/02/242230 Specimen Notes PENDING Culture NO GROWTH 4 DAYS SARS/FLU A+B/RSV by NAAT/Molecular (M4RT Collection Tube) [[id number]] Collected: 06/28/241809 Specimen: Nasopharynx Updated: 06/28/241946 FLU [...] non-distended, no signs of peritonitis Lines/drains: 16 Anguillan Jorgensen catheter in place with light brown [...] - recent lithotripsy and stent placement at [facility] -Consult to Urology - serial hgb, trend [...] 07/03 Comorbidities/Medical issues: Neuro- Pulm- Cardio- CAD, IN, HTN, Afib on Eliquis GI- -CKD, nephrolithiasis [...] 50 % in water (D50W) flu vacc [id number] 6mos up(PF) glucagon (human recombinant) ipratropium-albuteroL magnesium [...] mL/hr Soraida Mcgovern PA-C Trauma Services Pager: [phone] 11:16 AM 07/03/24 Soraida Mcgovern PA-C 07/03/24 4811 Images from the original note were not [...] Thank you, Bernarda Dennis RN Rapid Response: [facility] TRAUMA SURGERY - PROGRESS NOTE Patient: Neptali Loyola Date of : 1945 AGE 78 y.o. SEX male Assessment / Plan Neptali Loyola 78 y.o. male Mechanism: Fall Injuries/Traumatic issues: Left Renal Hematoma - recent lithotripsy and stent placement at [facility] -Consult to Urology - serial hgb, trend [...] closely Comorbidities/Medical issues: Neuro- Pulm- Cardio- CAD, IN, HTN, Afib on Eliquis GI- -CKD, nephrolithiasis [...] % in water (D50W) fentaNYL flu vacc [id number] 6mos up(PF) glucagon (human recombinant) ipratropium-albuteroL magnesium [...] can be reached via Patient Touch Pager: [phone] MARIA A Klein 07/02/24 1013 Images from [...] Thank you, AYSE RAYO RN Rapid Response: [facility] Images from the original note [...] Procedure Component Value Units Date/Time Urine culture [[id number]] Collected: 06/29/24 0206 Specimen: Urine from Jorgensen Catheter Specimen Updated: 06/30/24 0722 Specimen Notes URINE RECEIVED WITHOUT PRESERVATIVE Culture NO GROWTH AT <1000 CFU/mL Urine culture [[id number]] Collected: 06/28/24 2101 Specimen: Urine from Jorgensen Catheter Specimen Updated: 06/30/24 0908 Culture NO GROWTH AT <1000 CFU/mL Blood culture, peripheral #1 [[id number]] Collected: 06/28/24 191 Specimen: Blood Updated: 07/01/242229 Specimen Notes PENDING Culture NO GROWTH 3 DAYS Blood culture, peripheral #2 [[id number]] Collected: 06/28/241900 Specimen: Blood Updated: 07/01/242230 Specimen Notes PENDING Culture NO GROWTH 3 DAYS SARS/FLU A+B/RSV by NAAT/Molecular (M4RT Collection Tube) [[id number]] Collected: 06/28/241809 Specimen: Nasopharynx Updated: 06/28/241946 FLU [...] non-distended, no signs of peritonitis Lines/drains: 16 Anguillan Jorgensen catheter in place with light brown [...] Thank you, Bernarda Dennis RN Rapid Response: [facility] Images from the original note [...] Procedure Component Value Units Date/Time Urine culture [[id number]] Collected: 06/29/24 0206 Specimen: Urine from Jorgensen Catheter Specimen Updated: 06/30/24 0722 Specimen Notes URINE RECEIVED WITHOUT PRESERVATIVE Culture NO GROWTH AT <1000 CFU/mL Urine culture [[id number]] Collected: 06/28/24 210 Specimen: Urine from Jorgensen Catheter Specimen Updated: 06/30/24 0908 Culture NO GROWTH AT <1000 CFU/mL Blood culture, peripheral #1 [[id number]] Collected: 06/28/241909 Specimen: Blood Updated: 06/30/242229 Specimen Notes PENDING Culture NO GROWTH 2 DAYS Blood culture, peripheral #2 [[id number]] Collected: 06/28/24 190 Specimen: Blood Updated: 06/30/242230 Specimen Notes PENDING Culture NO GROWTH 2 DAYS SARS/FLU A+B/RSV by NAAT/Molecular (M4RT Collection Tube) [[id number]] Collected: 06/28/241809 Specimen: Nasopharynx Updated: 06/28/241946 FLU [...] non-distended, no signs of peritonitis Lines/drains: 16 Anguillan Jorgensen catheter in place with a violeta [...] % in water (D50W) fentaNYL flu vacc [id number] 6mos up(PF) glucagon (human recombinant) ipratropium-albuteroL magnesium [...] a 78 y.o. male who presented to [facility] ED via EMS as a Level 2 [...] Procedure Component Value Units Date/Time Urine culture [[id number]] Collected: 06/29/24 0206 Specimen: Urine from Jorgensen Catheter Specimen Updated: 06/30/24 0722 Specimen Notes URINE RECEIVED WITHOUT PRESERVATIVE Culture NO GROWTH AT <1000 CFU/mL Urine culture [[id number]] Collected: 06/28/24 2101 Specimen: Urine from Jorgensen Catheter Specimen Updated: 06/30/24 0908 Culture NO GROWTH AT <1000 CFU/mL Blood culture, peripheral #1 [[id number]] Collected: 06/28/24 191 Specimen: Blood Updated: 06/30/242229 Specimen Notes PENDING Culture NO GROWTH 2 DAYS Blood culture, peripheral #2 [[id number]] Collected: 06/28/24 190 Specimen: Blood Updated: 06/30/242230 Specimen Notes PENDING Culture NO GROWTH 2 DAYS SARS/FLU A+B/RSV by NAAT/Molecular (M4RT Collection Tube) [[id number]] Collected: 06/28/24 181 Specimen: Nasopharynx Updated: 06/28/241946 [...] BID, Lipitor PMH: CAD, hypertension, hyperlipidemia, previous IN, Afib, pacemaker ECHO in 2023 demonstrating EF [...] failure with hypoxia Wilberto Loomis MD, FACS [facility] General Surgeons Minimally Invasive Robotic Surgery Surgical Critical Care Trauma Office: [phone] Please feel free to call with questions [...] % in water (D50W) fentaNYL flu vacc [id number] 6mos up(PF) glucagon (human recombinant) ipratropium-albuteroL magnesium [...] non-distended, no signs of peritonitis Lines/drains: 16 Anguillan Jorgensen catheter in place with a violeta [...] a 78 y.o. male who presented to [facility] ED via EMS as a Level 2 [...] Procedure Component Value Units Date/Time Urine culture [[id number]] Resulted: 06/29/24 0320 Specimen: Urine Updated: 06/29/24 0331 Urine culture [[id number]] Collected: 06/28/24 2100 Specimen: Urine Updated: 06/29/24 1454 Blood culture, peripheral #1 [[id number]] Collected: 06/28/24 1910 Specimen: Blood Updated: 06/29/242229 Specimen Notes PENDING Culture NO GROWTH 1 DAY Blood culture, peripheral #2 [[id number]] Collected: 06/28/24 190 Specimen: Blood Updated: 06/29/242230 Specimen Notes PENDING Culture NO GROWTH 1 DAY SARS/FLU A+B/RSV by NAAT/Molecular (M4RT Collection Tube) [[id number]] Collected: 06/28/24 181 Specimen: Nasopharynx Updated: 06/28/241946 [...] BID, Lipitor PMH: CAD, hypertension, hyperlipidemia, previous IN, Afib, pacemaker ECHO in 2023 demonstrating EF [...] today = 34 minutes. Diagnoses: Atrial fibrillation intermission coordinator anticoagulation use Renal laceration Acute blood loss [...] Robotic Surgery Surgical Critical Care Trauma Office: [phone] Please feel free to call with questions at anytime. SICU Academic Critical Care PROGRESS NOTE Admission Date: 06/29/2024 1:19 AM Attending Physician: Ru Schwarz MD Date of 1945 Hospital Day: 0 day(s) Neptali Loyola is a 78 y.o. male who presented to [facility] ED via EMS as a Level 2 [...] Procedure Component Value Units Date/Time Urine culture [[id number]] Resulted: 06/29/24319 Specimen: Urine Updated: 06/29/24330 Blood culture, peripheral #2 [[id number]] Collected: 06/28/241906 Specimen: Blood, Peripheral Draw Updated: 06/28/241913 Blood culture, peripheral #1 [[id number]] Collected: 06/28/241858 Specimen: Blood, Peripheral Draw Updated: 06/28/241913 SARS/FLU A+B/RSV by NAAT/Molecular (M4RT Collection Tube) [[id number]] Collected: 06/28/241809 Specimen: Nasopharynx Updated: 06/28/241946 FLU [...] Meds: None PMH: CAD, hypertension, hyperlipidemia, previous IN, AFib Home meds: Eliquis, Plavix 4. GI [...] Schaffer MD SICU Resident, PGY-1 Cosigned by Wilbetro Loomis MD at 06/29/2024 8:53 AM EST [...] today = 34 minutes. Diagnoses: Atrial fibrillation intermission coordinator anticoagulation use Renal laceration Acute blood loss [...] Robotic Surgery Surgical Critical Care Trauma Office: [phone] Please feel free to call with questions at anytime. documented in this encounter [facility] 07-04-2024 Hospital course Narrative [facility] TRAUMA SURGERY-DISCHARGE SUMMARY DISCHARGE NOTE / SUMMARY Patient ID: Neptali Loyola : 1945 Acct: [id number] Patient's PCP: MIGUEL GARCIA, [employer]EDULER Admit Date: 06/29/2024 Discharge Date: 07/04/2024 Admitting Physician: Ru Schwarz MD Consults: Urology and SICU Discharge Diagnoses/Chief Complaint: fall Primary Problem Fall in home, initial encounter Patient Active Problem List Diagnosis Date Noted Fall in home, initial encounter 06/29/2024 Past Medical History: Diagnosis Date Card[place] 02/2024 Coronary artery disease Dementia [place] Fall in home, initial encounter 06/29/2024 Hemorrhoids Hyperlipidemia Hypertension Kidney stone Memory loss Myocardial infarction [place] Urinary tract infection HOSPITAL COURSE SUMMARY: Neptali Loyola is an 78 y.o. White or male presented to [facility] ED via EMS as a level 2 [...] - recent lithotripsy and stent placement at [facility] -Consult to Urology - serial hgb, trend [...] Family Medicine Why: 3:00 pm Contact information: [address] [facility] [address] Kelvin Langston MD Follow up. Specialty: Urology Why: Follow up for management of kidney stones Contact information: [address] Dept of Urology [facility] [address] Scheduled Appointments YOUR SCHEDULED APPOINTMENTS Please make note of this in your schedule as to not miss or call to reschedule. Thank you! REINALDO CHAKRABORTY PCP - General Family Medicine phone [phone] fax [phone] [place] [address] Next Steps: Go on 07/08/2024 Instructions: 3:00 [...] For NEW patients, MD will not prescribe terminal operations supervisor pain medication. Time spent: 45 minutes SORAIDA MCGOVERN PA-C 07/04/24 12:17 PM Soraida Mcgovern PA-C 07/04/24 1217 documented in this encounter [facility] 07-04-2024 Progress note Formatting of t his note might be different from the original. DISCHARGE PLANNING NOTE Case discussed in daily transition rounds and chart reviewed by CN. Barriers to discharge include no medical barriers Discharge Plan remains: [place] [facility] aware of dc order today-transport ambulette bulk picker time is 4pm. HENS complete. CRF in dc packet and sent to [place]. Patient aware of dc at 4p as well. CN will continue to follow and is available should any further needs arise. - Julisa Del Toro RN 07/04/24 11:25 AM [facility] 07-04-2024 Plan of care note Problem: Pain Goal: Patient goal is pain score less than 4, able to rest, and participant in treatment plan as appropriate Description: INTERVENTIONS: 1. Encourage patient or legal cash applications representative to report early pain and ask [...] per policy 9. Teach patient or legal cash applications representative interventions for comforting Outcome: Progressing Note: [...] at the bedside 7. Instruct patient/ patient cash applications representative about use of safety devices 8. Include patient/ patient cash applications representative in decisions related to safety Outcome: [...] hygiene technique. 7. Identify and instruct patient/patient cash applications representative in use of appropriate isolation precautions for identified infection/symptoms. 8. Provide and discuss with patient/patient cash applications representative on educational MDRO sheet. 9. Encourage and monitor nutritional status daily and consult refrigeration specialist if indicated. 10. Implement neutropenic guidelines as needed. Outcome: Progressing Note: Evaluation of progress towards goal: Pt is afebrile and will remain free from signs of infection during shift. Labs and PIV insertion site being monitored Problem: Knowledge Deficit Goal: Patient/patient cash applications representative demonstrates understanding of disease process, treatment [...] goal: Discharge planning in process. Plan is [place] Problem: Potential for Compromised Skin Integrity Goal: [...] supplement as ordered 13. Collaborate with clinical refrigeration specialist 14. Include patient/ patient's cash applications representative in decisions related to nutrition Outcome: Progressing Note: Evaluation of progress towards goal: pt is consuming an adequate amt of meals Problem: Moderate - High Risk Fall Score Description: Issa Fall Score of =/> 25 or indicated by [facility] Assessment Goal: Patient should be free from fall Description: Interventions: 1. [place]thorne to environment 2. Hourly rounds addressing the [...] non-skid footwear 11. Teach patient and patient cash applications representative to maintain environment for safety and [...] (cane, walker) within reach 19. Request patient cash applications representative bring adaptive equipment/mobility aids from home or obtain and provide as needed 20. Consult pharmacy regarding effects of med's affecting mobility, cognition, and alternatives 21. Obtain physician order for PT if risk factors associated with mobility are present 22. Obtain physician order for OT as appropriate 23. Utilize diversional activities 24. Educate patient and patient cash applications representative how to maintain a safe environment during visitation times (notify nurse prior to leaving bedside) 25. Consider appropriateness of medical or non-medical diagnostic radiographer 26. Set up voiding schedule as appropriate (every 2 hours) Outcome: Progressing Note: Evaluation of progress towards goal: Pt will remain free from falls during shift. Call light in reach, bed in lowest position, bed and chair wheels locked, 2/4 side rails up, nonslip socks on, overbed table and personal belongings within reach, hourly rounding being completed, RN next to pt's [facility] 07-03-2024 Progress note Formatting of t his note might be different from the original. DISCHARGE PLANNING NOTE 4:30pm Rescheduled to 4pm 2.20.25 per SW request. Ambulette transport via PTN confirmed in [facility] to [place] 07.04.24 at 12:00pm [facility] 07-03-2024 Progress note Formatting of t his note might be different from the original. DISCHARGE PLANNING NOTE Prior Auth approved for admission to : [facility]/ [place], [place] (P# ; F# ) Approval # [id number] Valid for Dates: 07/03/2024-07/09/2024 [facility] 07-03-2024 Plan of care note Problem: Pain Goal: Patient goal is pain score less than 4, able to rest, and participant in treatment plan as appropriate Description: INTERVENTIONS: 1. Encourage patient or legal cash applications representative to report early pain and ask [...] per policy 9. Teach patient or legal cash applications representative interventions for comforting Outcome: Adequate for [...] at the bedside 7. Instruct patient/ patient cash applications representative about use of safety devices 8. Include patient/ patient cash applications representative in decisions related to safety Outcome: Adequate for Discharge Note: Evaluation of progress towards goal: Patient safety maintained during shift with use of 5 rights, patient and staff using hygiene, patient environment free of harm and debrie. Will continue to monitor during shift. Problem: Knowledge Deficit Goal: Patient/patient cash applications representative demonstrates understanding of disease process, treatment [...] =/> 25 or indicated by [facility] Assessment Goal: Patient should be free from fall Description: Interventions: 1. [place]thorne to environment 2. Hourly rounds addressing the [...] non-skid footwear 11. Teach patient and patient cash applications representative to maintain environment for safety and [...] (cane, walker) within reach 19. Request patient cash applications representative bring adaptive equipment/mobility aids from home or obtain and provide as needed 20. Consult pharmacy regarding effects of med's affecting mobility, cognition, and alternatives 21. Obtain physician order for PT if risk factors associated with mobility are present 22. Obtain physician order for OT as appropriate 23. Utilize diversional activities 24. Educate patient and patient cash applications representative how to maintain a safe environment during visitation times (notify nurse prior to leaving bedside) 25. Consider appropriateness of medical or non-medical diagnostic radiographer 26. Set up voiding schedule as appropriate [...] shift. Will continue to monitor during shift. [facility] 07-03-2024 Progress note Formatting of t his note might be different from the original. DISCHARGE PLANNING NOTE Referral sent to multiple facilities or agencies due to patient is without preference. I [facility] 07-03-2024 Progress note Formatting of t his note might be different from the original. DISCHARGE PLANNING NOTE ADILENE called patient Ashok barroso and left a voicemail asking for a return call. SW informed son in voicemail that [facility] unable to accept due to no [...] SW received return call from ashok barroso. sAhok would like auth to be started with [facility]. ADILENE tasked [facility] to start auth. - [place] 07/03/24 3:03 PM SW informed patient of DC tomorrow. ADILENE also called patient son of discharge tomorrow at 4pm. ADILENE tasked [facility] to set up transport. - [facility] 07/03/[facility] 3[facility] [facility] 07-02-2024 Plan of care note Problem: Pain Goal: Patient goal is pain score less than 4, able to rest, and participant in treatment plan as appropriate Description: INTERVENTIONS: 1. Encourage patient or legal cash applications representative to report early pain and ask [...] per policy 9. Teach patient or legal cash applications representative interventions for comforting Outcome: Progressing Note: [...] at the bedside 7. Instruct patient/ patient cash applications representative about use of safety devices 8. Include patient/ patient cash applications representative in decisions related to safety Outcome: [...] hygiene technique. 7. Identify and instruct patient/patient cash applications representative in use of appropriate isolation precautions for identified infection/symptoms. 8. Provide and discuss with patient/patient cash applications representative on educational MDRO sheet. 9. Encourage and monitor nutritional status daily and consult refrigeration specialist if indicated. 10. Implement neutropenic guidelines as needed. Outcome: Progressing Note: Evaluation of progress towards goal: patient remains afebrile, will continue to monitor labs Problem: Knowledge Deficit Goal: Patient/patient cash applications representative demonstrates understanding of disease process, treatment [...] supplement as ordered 13. Collaborate with clinical refrigeration specialist 14. Include patient/ patient's cash applications representative in decisions related to nutrition Outcome: [...] be free from fall Description: Interventions: 1. [place] to environment 2. Hourly rounds addressing the [...] non-skid footwear 11. Teach patient and patient cash applications representative to maintain environment for safety and [...] (cane, walker) within reach 19. Request patient cash applications representative bring adaptive equipment/mobility aids from home or obtain and provide as needed 20. Consult pharmacy regarding effects of med's affecting mobility, cognition, and alternatives 21. Obtain physician order for PT if risk factors associated with mobility are present 22. Obtain physician order for OT as appropriate 23. Utilize diversional activities 24. Educate patient and patient cash applications representative how to maintain a safe environment during visitation times (notify nurse prior to leaving bedside) 25. Consider appropriateness of medical or non-medical diagnostic radiographer 26. Set up voiding schedule as appropriate (every 2 hours) Outcome: Progressing Note: Evaluation of progress towards goal: patient remains free from falls [facility] 07-02-2024 Progress note Formatting of t his note is different from the original. Physical Therapy Evaluation Discharge Recommendations PT Recommendations: Residential Facility SNF/ECF Comments: Recommend SNF as pt [...] 6 Clicks: Basic Mobility Raw Score: 13 [facility] G Code Modifier: CK Therapy Plan Need [...] lithotripsy and stent placed on 06/19/24 at [facility]. Past Medical History: Diagnosis Date Cardiac arrest [place] 02/2024 Coronary artery disease Dementia [place] Fall in home, initial encounter 06/29/2024 Hemorrhoids Hyperlipidemia Hypertension Kidney stone Memory loss Myocardial infarction ([facility] Urinary tract infection History reviewed. No pertinent [...] ok for PT/OT--OOB. Equipment: gait belt, RW Telemetry/Trolley Car Mechanic: Yes Oxygen Order : SpO2 90% or [...] Goal: Patient will perform transfers with Modified [place] Dates: Start: 07/02/24 Expected End: 07/25/24 Description: Goal Description: Disciplines: PT Physical Therapy Care Plan (Resolved) There are no resolved problems. Principal Problem: Fall in home, initial encounter [facility] 07-02-2024 Progress note Formatting of t his note is different from the original. Occupational Therapy Evaluation Discharge Recommendations OT Recommendations : Residential Facility SNF/ECF Comments: recommend SNF at discharge [...] little Scoring Daily Activity Raw Score: 13 [facility] G Code Modifier: CL Pt admit 06/29/24 after fall from standing. Pt hypotensive on arrival s/p 3 units of PRBC. Dx: L renal hematoma, hypotension, acute blood loss anemia Urology consulted. Pt with hematuria, maintain jorgensen catheter. Pt with h/o lithotripsy with stent placement at [facility] on 06/19/24 Past Medical History: Diagnosis Date Cardiac arrest [place] 02/2024 Coronary artery disease Dementia [place] Fall in home, initial encounter 06/29/2024 Hemorrhoids Hyperlipidemia Hypertension Kidney stone Memory loss Myocardial infarction ([facility] Urinary tract infection History reviewed. No pertinent [...] mobility guideline:yes, pass Equipment: gait belt, RW Telemetry/Trolley Car Mechanic: Yes Oxygen Order : spo2 90% or [...] Principal Problem: Fall in home, initial encounter [facility] 07-02-2024 Plan of care note Problem: Pain Goal: Patient goal is pain score less than 4, able to rest, and participant in treatment plan as appropriate Description: INTERVENTIONS: 1. Encourage patient or legal cash applications representative to report early pain and ask [...] per policy 9. Teach patient or legal cash applications representative interventions for comforting Outcome: Progressing Note: [...] at the bedside 7. Instruct patient/ patient cash applications representative about use of safety devices 8. Include patient/ patient cash applications representative in decisions related to safety Outcome: [...] hygiene technique. 7. Identify and instruct patient/patient cash applications representative in use of appropriate isolation precautions for identified infection/symptoms. 8. Provide and discuss with patient/patient cash applications representative on educational MDRO sheet. 9. Encourage and monitor nutritional status daily and consult refrigeration specialist if indicated. 10. Implement neutropenic guidelines as needed. Outcome: Progressing Note: Evaluation of progress towards goal: pt is afebrile and free from s/s of infection. Will continue to monitor Problem: Knowledge Deficit Goal: Patient/patient cash applications representative demonstrates understanding of disease process, treatment [...] supplement as ordered 13. Collaborate with clinical refrigeration specialist 14. Include patient/ patient's cash applications representative in decisions related to nutrition Outcome: [...] be free from fall Description: Interventions: 1. [place]th[place] to environment 2. Hourly rounds addressing the [...] non-skid footwear 11. Teach patient and patient cash applications representative to maintain environment for safety and [...] (cane, walker) within reach 19. Request patient cash applications representative bring adaptive equipment/mobility aids from home or obtain and provide as needed 20. Consult pharmacy regarding effects of med's affecting mobility, cognition, and alternatives 21. Obtain physician order for PT if risk factors associated with mobility are present 22. Obtain physician order for OT as appropriate 23. Utilize diversional activities 24. Educate patient and patient cash applications representative how to maintain a safe environment during visitation times (notify nurse prior to leaving bedside) 25. Consider appropriateness of medical or non-medical diagnostic radiographer 26. Set up voiding schedule as appropriate (every 2 hours) Outcome: Progressing Note: Evaluation of progress towards goal: bed is locked and in lowest position. Call light within reach and hourly rounding maintained [facility] 07-02-2024 Nurse Note Pt pulse ox at 84%, pt placed on 2 liters of oxygen, notified patients nurse Ligia Soliz Rn of 02 placement. Pt resting quietly. [facility] 07-02-2024 Progress note Formatting of t his [...] decisions. Called son Ashok. Ashok would like [facility]-he has been there before. Referral sent. - Julisa Del Toro RN 07/02/24 3:38 PM [facility] 07-02-2024 Progress note Formatting of t his note is different from the original. Physical Therapy PT Type of Visit: Medical deferral Reason For Medical Deferral: Off unit [facility] 07-02-2024 Progress note Formatting of t his note is different from the original. Occupational Therapy OT Type of Visit: Medical deferral Reason For Medical Deferral: Off unit Off Unit: Testing Activity Limitations: Strict bedrest [facility] 07-02-2024 Consult note Formatting of th is note is different from the original. NUTRITION ADULT INITIAL EVALUATION NUTRITION ASSESSMENT: Reason to be seen: screen: PO/wt loss Patient History: Admit Diagnosis: Patient Active Problem List Diagnosis Fall in home, initial encounter Past Medical History: Past Medical History: Diagnosis Date Cardiac arrest [place] 02/2024 Coronary artery disease Dementia [place] Fall in home, initial encounter 06/29/2024 Hemorrhoids Hyperlipidemia Hypertension Kidney stone Memory loss Myocardial infarction [place] Urinary tract infection Past Surgical History:History reviewed. No pertinent surgical history. Social/ Cognitive/ Economic: A/Ox4; dementia but per RN, pt answers questions appropriately. Per son, PMH includes alcoholism, but pt no longer drinks EtOH. Brief Clinical Summary: 78 y.o. White or male. Presented to [facility] ED via EMS as a level 2 trauma after sustaining a fall from standing height; upgraded to level 1 given hypotension. PMH: Afib, CAD, dementia, [place]. At outside ED, CTAP showed possible hematoma [...] found for: VERYLOWLIP No results found for: [id number] No results found for: FOLATE No results [...] 25 mcg at 06/29/24 0324 flu vacc [id number] 6mos up(PF) (FLULAVAL/FLUZONE/FLUARIX TRIV) injection syringe 0.5 [...] % infusion 20 mL/hr intravenous Continuous PRN Franscio Villagomez MD Nutrition Focused Physical Findings Last BM: 06/28, +1 edema, dementia/altered mentation Extremities, Muscles, and Bones -NICOLAS; brief writer remote. Skin (per nursing flow sheets): Skin Color: Clutier (07/02/24521) Skin Temp: Warm; Dry (07/02/24521) Wound [...] the procedure and not feeling well. 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 No appetite information in RN flowsheets. RN notes appetite is good. Pt noted he ate about 100% of breakfast 07/02 Oral Supplemental Intake/ Acceptance: none ordered; agreeable to [facility] janie Anthropometrics: Ht Readings from Last [...] his son knows all that stuff . Hollis Body Weight: 80.9 kg Percent Hollis Body Weight: >100% Weight Changes: up this admit Body Mass Index: Body mass index is 29.51 kg/m . BMI Category: Pre-obese (25.00- 29.99) Comparative Standards: Estimated Energy Needs: 1619-5765 kcals daily. Method and weight used: 25-30 kcal/kg Estimated Protein Needs: 97-161 grams daily. Method and weight used: 1.2-2g protein/kg Estimated Fluid Needs: 4350-9225 ml daily. Method weight used: 1 ml/kcal [...] MS, RD, LD Clinical Dietitian Direct Line [facility] 07-02-2024 Consult note Formatting of th is note is different from the original. NUTRITION ADULT INITIAL EVALUATION NUTRITION ASSESSMENT: Reason to be seen: screen: PO/wt loss Patient History: Admit Diagnosis: Patient Active Problem List Diagnosis Fall in home, initial encounter Past Medical History: Past Medical History: Diagnosis Date Cardiac arrest ([facility]) 02/2024 Coronary artery disease Dementia ([facility]) Fall in home, initial encounter 06/29/2024 Hemorrhoids Hyperlipidemia Hypertension Kidney stone Memory loss Myocardial infarction ([facility]) Urinary tract infection Past Surgical History:History reviewed. No pertinent surgical history. Social/ Cognitive/ Economic: A/Ox4; dementia but per RN, pt answers questions appropriately. Per son, PMH includes alcoholism, but pt no longer drinks EtOH. Brief Clinical Summary: 78 y.o. White or male. Presented to [facility] ED via EMS as a level 2 trauma after sustaining a fall from standing height; upgraded to level 1 given hypotension. PMH: Afib, CAD, dementia, [place]. At outside ED, CTAP showed possible hematoma [...] found for: VERYLOWLIP No results found for: [id number] No results found for: FOLATE No results [...] 25 mcg at 06/29/24 0324 flu vacc [id number] 6mos up(PF) (FLULAVAL/FLUZONE/FLUARIX TRIV) injection syringe 0.5 [...] dementia/altered mentation Extremities, Muscles, and Bones -NICOLAS; brief writer remote. Skin (per nursing flow sheets): Skin Color: Clutier (07/02/24521) Skin Temp: Warm; Dry (07/02/24521) Wound [...] the procedure and not feeling well. 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 Hollis Body Weight: 80.9 kg Percent Hollis Body Weight: >100% Weight Changes: up this admit Body Mass Index: Body mass index is 29.51 kg/m . BMI Category: Pre-obese (25.00- 29.99) Comparative Standards: Estimated Energy Needs: 7753-6792 kcals daily. Method and weight used: 25-30 kcal/kg Estimated Protein Needs: 97-161 grams daily. Method and weight used: 1.2-2g protein/kg Estimated Fluid Needs: 1185-7084 ml daily. Method weight used: 1 ml/kcal [...] trend, labs, POC and overall status. Morales Soas MS, RD, LD Clinical Dietitian Direct Line [...] at home per son. He presented to [facility]. We will CT scan showed large perinephric [...] History: Diagnosis Date Coronary artery disease Dementia ([facility]) Hemorrhoids Memory loss Myocardial infarction [place] Urinary tract infection Past Surgical History: History [...] Resource Strain: Patient Declined (04/24/2024) Received from [facility] Overall Financial Resource Strain (CARDIA) Difficulty of Paying Living Expenses: Patient declined Food Insecurity: No Food Insecurity (06/29/2024) Hunger Screening Food Insecurity - Worry: Never True Food Insecurity - Inability: Never True Transportation Needs: Patient Declined (04/24/2024) Received from [facility] TA - Transportation Lack of Transportation (Medical): Patient declined Lack of Transportation (Non-Medical): Patient declined Physical Activity: Patient Declined (04/24/2024) Received from [facility] Exercise Vital Sign Days of Exercise per Week: Patient declined Minutes of Exercise per Session: Patient declined Stress: Patient Declined (04/24/2024) Received from [facility] [place] [facility] - Occupational Stress Questionnaire Feeling of Stress : Patient declined Social Connections: Patient Declined (04/24/2024) Received from [facility] Social Connection and Isolation Panel [NHANES] Frequency of Communication with Friends and Family: Patient declined Frequency of Social Gatherings with Friends and Family: Patient declined Attends Roman Catholic Services: Patient declined Active Member of Clubs or Organizations: Patient declined Attends Club or Organization Meetings: Patient declined Marital Status: Patient declined Interpersonal Safety: Unknown (04/24/2024) Received from [facility] Humiliation, Afraid, Rape, and Kick questionnaire Fear of Current or Ex-Partner: Patient declined Emotionally Abused: Patient declined Physically Abused: Not on file Sexually Abused: Patient declined Housing Instability: Patient Declined (04/24/2024) Received from [facility] Housing Stability Vital Sign Unable to [...] CT abdomen and pelvis with contrast Order: [id number] Status: Final result Visible to patient: No (scheduled for 07/02/2024 8:00 PM) Next appt: None 0 Result Notes Details Reading Physician Reading Date Result Priority Fito Alexander MD [phone] 06/28/2024 STAT Narrative & Impression CT ABDOMEN [...] Hernandez MD Urology Resident, PGY-3 Cosigned by Alferd Valenzuela MD at 06/29/2024 4:17 PM EST [...] as necessary. Associated Order(s): IP CONSULT TO [facility] S[facility] Academic Critical Care CONSULTATION Name: Neptali Loyola Date: 06/29/2024 Length of Stay: 0 day(s) Chief Concern: Chief Complaint Patient presents with Trauma History of Present Illness Neptali Loyola is an 78 y.o. White or male presented to [facility] ED via EMS as a level 2 [...] History: Diagnosis Date Coronary artery disease Dementia [place] Hemorrhoids Memory loss Myocardial infarction [place] Urinary tract infection History reviewed. No pertinent [...] intravenous, Q6H famotidine, 20 mg, intravenous, Q24H [facility] insulin lispro, 2-10 Units, subcutaneous, Q6H lidocaine, 1 patch, transdermal, Daily polyethylene glycol, 17 g, oral, Daily sennosides-docusate sodium, 2 tablet, oral, BID sodium chloride, 3 mL, intravenous, Q12H [facility] dextrose 5 % in water, 100 mL/hr dextrose 5 % in water, 100 mL/hr lactated ringer's, 100 mL/hr, Last Rate: 100 mL/hr (06/29/24 9347) sodium chloride 0.9 %, 10 mL/hr sodium [...] Resource Strain: Patient Declined (04/24/2024) Received from [facility] Overall Financial Resource Strain (CARDIA) Difficulty of Paying Living Expenses: Patient declined Food Insecurity: No Food Insecurity (06/29/2024) Hunger Screening Food Insecurity - Worry: Never True Food Insecurity - Inability: Never True Transportation Needs: Patient Declined (04/24/2024) Received from [facility] PRAPARE - Transportation Lack of Transportation (Medical): Patient declined Lack of Transportation (Non-Medical): Patient declined Physical Activity: Patient Declined (04/24/2024) Received from [facility] Exercise Vital Sign Days of Exercise per Week: Patient declined Minutes of Exercise per Session: Patient declined Stress: Patient Declined (04/24/2024) Received from [facility] [place] [facility] - Occupational Stress Questionnaire Feeling of Stress : Patient declined Social Connections: Patient Declined (04/24/2024) Received from [facility] Social Connection and Isolation Panel [NHANES] Frequency of Communication with Friends and Family: Patient declined Frequency of Social Gatherings with Friends and Family: Patient declined Attends Roman Catholic Services: Patient declined Active Member of Clubs or Organizations: Patient declined Attends Club or Organization Meetings: Patient declined Marital Status: Patient declined Interpersonal Safety: Unknown (04/24/2024) Received from [facility] Humiliation, Afraid, Rape, and Kick questionnaire Fear of Current or Ex-Partner: Patient declined Emotionally Abused: Patient declined Sexually Abused: Patient declined Housing Instability: Patient Declined (04/24/2024) Received from [facility] Housing Stability Vital Sign Unable to [...] Procedure Component Value Units Date/Time Urine culture [[id number]] Resulted: 06/29/24319 Specimen: Urine Updated: 06/29/24330 Blood culture, peripheral #2 [[id number]] Collected: 06/28/241906 Specimen: Blood, Peripheral Draw Updated: 06/28/241913 Blood culture, peripheral #1 [[id number]] Collected: 06/28/241858 Specimen: Blood, Peripheral Draw Updated: 06/28/241913 SARS/FLU A+B/RSV by NAAT/Molecular (M4RT Collection Tube) [[id number]] Collected: 06/28/241809 Specimen: Nasopharynx Updated: 06/28/241946 FLU [...] Procedure Component Value Units Date/Time Urine culture [[id number]] Resulted: 06/29/24319 Specimen: Urine Updated: 06/29/24330 Blood culture, peripheral #2 [[id number]] Collected: 06/28/241906 Specimen: Blood, Peripheral Draw Updated: 06/28/241913 Blood culture, peripheral #1 [[id number]] Collected: 06/28/24 185 Specimen: Blood, Peripheral Draw Updated: 06/28/241913 SARS/FLU A+B/RSV by NAAT/Molecular (M4RT Collection Tube) [[id number]] Collected: 06/28/241809 Specimen: Nasopharynx Updated: 06/28/241946 FLU [...] Meds: None PMH: CAD, hypertension, hyperlipidemia, previous [place], AFib Home meds: Eliquis, Plavix 3. Resp: [...] and titration of care by critical care blank driller. Failure to do so may result in [...] consulted. Will follow with serial H&H RU CSHWARZ MD Trauma/Surgical Critical Care 06/29/2024 10:06 AM documented [facility] this [facility] Progress note Formatting of t his note is different from the original. Occupational Therapy OT Type of Visit: Medical deferral Reason For Medical Deferral: Activity limitations Activity Limitations: Strict bedrest cont as time allows once pt has increased activity orders [facility]01[facility] Plan of care note Problem: Pain Goal: Patient goal is pain score less than 4, able to rest, and participant in treatment plan as appropriate Description: INTERVENTIONS: 1. Encourage patient or legal cash applications representative to report early pain and ask [...] per policy 9. Teach patient or legal cash applications representative interventions for comforting Outcome: Progressing Note: [...] at the bedside 7. Instruct patient/ patient cash applications representative about use of safety devices 8. Include patient/ patient cash applications representative in decisions related to safety Outcome: [...] hygiene technique. 7. Identify and instruct patient/patient cash applications representative in use of appropriate isolation precautions for identified infection/symptoms. 8. Provide and discuss with patient/patient cash applications representative on educational MDRO sheet. 9. Encourage and monitor nutritional status daily and consult refrigeration specialist if indicated. 10. Implement neutropenic guidelines as needed. Outcome: Progressing Note: Evaluation of progress towards goal: patient remains afebrile, will continue to monitor labs Problem: Knowledge Deficit Goal: Patient/patient cash applications representative demonstrates understanding of disease process, treatment [...] =/> 25 or indicated by [facility] Assessment Goal: Patient should be free from fall Description: Interventions: 1. [place] to environment 2. Hourly rounds addressing the [...] non-skid footwear 11. Teach patient and patient cash applications representative to maintain environment for safety and [...] (cane, walker) within reach 19. Request patient cash applications representative bring adaptive equipment/mobility aids from home or obtain and provide as needed 20. Consult pharmacy regarding effects of med's affecting mobility, cognition, and alternatives 21. Obtain physician order for PT if risk factors associated with mobility are present 22. Obtain physician order for OT as appropriate 23. Utilize diversional activities 24. Educate patient and patient cash applications representative how to maintain a safe environment during visitation times (notify nurse prior to leaving bedside) 25. Consider appropriateness of medical or non-medical diagnostic radiographer 26. Set up voiding schedule as appropriate (every 2 hours) Outcome: Progressing Note: Evaluation of progress towards goal: patient remains free from falls [facility] 07-01-2024 Hospital Discharge instructions Denisha Thurston - 07/01/2024 4:48 PM EST YOUR SCHEDULED APPOINTMENTS Please make note of this in your schedule as to not miss or call to reschedule. Thank you! MIGUEL GARCIA APRN-CHIEF CREW SCHEDULER PCP - General Family Medicine phone [phone] fax [phone] [facility] [id number] Next Steps: Go on 07/08/2024 Instructions: 3:00 [...] For NEW patients, MD will not prescribe terminal operations supervisor pain medication. [facility] Progress note Formatting of t his note is different from the original. Images from the original note were not included. DISCHARGE PLANNING NOTE Auto Wheel Alignment Specialist met with patient, introduced self, and explained role. Patient educated on safe discharge plan. Pt admitted 06/29/2024 with Acute blood loss anemia [D62] Fall in home, initial encounter [W19.XXXA, Y92.009] per chart review. Consults: Trauma and Urology Discharge Barriers per Daily Transition Rounds and chart review: PT/OT eval, bilat duplex, oxygen, H&H q12 Past Medical History: Diagnosis Date Cardiac arrest [place] 02/2024 Coronary artery disease Dementia ([facility] Fall in home, initial encounter 06/29/2024 Hemorrhoids Hyperlipidemia Hypertension Kidney stone Memory loss Myocardial infarction ([facility] Urinary tract infection Prior to admission patient [...] steps into home. PCP: REINALDO CHAKRABORTY Pharmacy: [facility] PCP and pharmacy confirmed [...] daughter in laws house Sons address is [address] [place] [address] Services Requested: Services Requested Patient expects to [...] Julisa Del Toro RN 07/01/24 2:01 PM [facility] Plan of care note Problem: Pain Goal: Patient goal is pain score less than 4, able to rest, and participant in treatment plan as appropriate Description: INTERVENTIONS: 1. Encourage patient or legal cash applications representative to report early pain and ask [...] per policy 9. Teach patient or legal cash applications representative interventions for comforting Outcome: Progressing Note: [...] at the bedside 7. Instruct patient/ patient cash applications representative about use of safety devices 8. Include patient/ patient cash applications representative in decisions related to safety Outcome: [...] hygiene technique. 7. Identify and instruct patient/patient cash applications representative in use of appropriate isolation precautions for identified infection/symptoms. 8. Provide and discuss with patient/patient cash applications representative on educational MDRO sheet. 9. Encourage and monitor nutritional status daily and consult refrigeration specialist if indicated. 10. Implement neutropenic guidelines as needed. Outcome: Progressing Note: Evaluation of progress towards goal: Problem: Knowledge Deficit Goal: Patient/patient cash applications representative demonstrates understanding of disease process, treatment [...] supplement as ordered 13. Collaborate with clinical refrigeration specialist 14. Include patient/ patient's cash applications representative in decisions related to nutrition Outcome: [...] =/> 25 or indicated by [facility] Assessment Goal: Patient should be free from fall Description: Interventions: 1. [place] to environment 2. Hourly rounds addressing the [...] non-skid footwear 11. Teach patient and patient cash applications representative to maintain environment for safety and [...] (cane, walker) within reach 19. Request patient cash applications representative bring adaptive equipment/mobility aids from home or obtain and provide as needed 20. Consult pharmacy regarding effects of med's affecting mobility, cognition, and alternatives 21. Obtain physician order for PT if risk factors associated with mobility are present 22. Obtain physician order for OT as appropriate 23. Utilize diversional activities 24. Educate patient and patient cash applications representative how to maintain a safe environment during visitation times (notify nurse prior to leaving bedside) 25. Consider appropriateness of medical or non-medical diagnostic radiographer 26. Set up voiding schedule as appropriate (every 2 hours) Outcome: Progressing Note: Evaluation of progress towards goal: Patient remains free from falls and injury, fall risk ID band on, fall prevention education and precautions provided and in place. Hourly rounds maintained, call light in reach, and safety measures in place. [facility]24 Progress note Formatting of t his note is different from the original. Physical Therapy PT Type of Visit: Medical deferral Reason For Medical Deferral: RN deems inappropriate, Activity limitations RN Deems Inappropriate: Failed MOVES safety screen Activity Limitations: Strict bedrest [facility] 07-01-2024 Progress note Formatting of t his note is different from the original. Occupational Therapy OT Type of Visit: Medical deferral Reason For Medical Deferral: Activity limitations Activity Limitations: Strict bedrest [facility] 06-30-2024 Plan of care note Problem: Pain Goal: Patient goal is pain score less than 4, able to rest, and participant in treatment plan as appropriate Description: INTERVENTIONS: 1. Encourage patient or legal cash applications representative to report early pain and ask [...] per policy 9. Teach patient or legal cash applications representative interventions for comforting Outcome: Progressing Note: [...] at the bedside 7. Instruct patient/ patient cash applications representative about use of safety devices 8. Include patient/ patient cash applications representative in decisions related to safety Outcome: [...] every shift provided with CHG impregnated wipes [facility] 06-30-2024 Progress note Formatting of t his note is different from the original. Occupational Therapy OT Type of Visit: Medical deferral Reason For Medical Deferral: Activity limitations RN Deems Inappropriate: Failed MOVES safety screen Activity Limitations: Strict bedrest [facility] 06-30-2024 Progress note Formatting of t [...] strict bedrest orders; attempt PT as appropriate) [facility] 06-30-2024 Plan of care note Problem: Pain Goal: Patient goal is pain score less than 4, able to rest, and participant in treatment plan as appropriate Description: INTERVENTIONS: 1. Encourage patient or legal cash applications representative to report early pain and ask [...] per policy 9. Teach patient or legal cash applications representative interventions for comforting Outcome: Progressing Note: [...] at the bedside 7. Instruct patient/ patient cash applications representative about use of safety devices 8. Include patient/ patient cash applications representative in decisions related to safety Outcome: [...] every shift provided with CHG impregnated wipes [facility] 06-29-2024 Progress note Formatting of t his [...] by: Shar Schaffer MD 06/29/2024 12:43 PM [facility] 06-29-2024 Progress note Formatting of t his note is different from the original. Occupational Therapy OT Type of Visit: Medical deferral Reason For Medical Deferral: Activity limitations RN Deems Inappropriate: Failed MOVES safety screen Activity Limitations: Strict bedrest [facility] 06-29-2024 Progress note Formatting of t his note is different from the original. Physical Therapy PT Type of Visit: Medical deferral Reason For Medical Deferral: RN deems inappropriate, Activity limitations RN Deems Inappropriate: Failed MOVES safety screen Activity Limitations: Strict bedrest [facility] 06-29-2024 Procedure note Procedure(s): INSERT ARTERIAL [...] for the archer components of the procedure. [employer] Work Phone: 06-29-2024 Procedure note Procedure(s): INSERT [...] of the procedure. documented in this encounter [facility] [employer] 06-29-2024 Consult note Associated Order (s): IP [...] at home per son. He presented to [facility]. We will CT scan showed large perinephric [...] History: Diagnosis Date Coronary artery disease Dementia ([facility]) Hemorrhoids Memory loss Myocardial infarction ([facility]) Urinary tract infection Past Surgical History: History reviewed. No pertinent surgical history. Medications: Scheduled Meds: acetaminophen, 1,000 mg, intravenous, Q6H famotidine, 20 mg, intravenous, Q24H TYRON insulin lispro, 2-10 Units, subcutaneous, Q6H lidocaine, 1 patch, transdermal, Daily polyethylene glycol, 17 g, oral, Daily sennosides-docusate sodium, 2 tablet, oral, BID sodium chloride, 3 mL, intravenous, Q12H TYRNO Continuous Infusions: dextrose 5 % in water, [...] Resource Strain: Patient Declined (04/24/2024) Received from [facility] Overall Financial Resource Strain (CARDIA) Difficulty of Paying Living Expenses: Patient declined Food Insecurity: No Food Insecurity (06/29/2024) Hunger Screening Food Insecurity - Worry: Never True Food Insecurity - Inability: Never True Transportation Needs: Patient Declined (04/24/2024) Received from [facility] PRAPARE - Transportation Lack of Transportation (Medical): Patient declined Lack of Transportation (Non-Medical): Patient declined Physical Activity: Patient Declined (04/24/2024) Received from [facility] Exercise Vital Sign Days of Exercise per Week: Patient declined Minutes of Exercise per Session: Patient declined Stress: Patient Declined (04/24/2024) Received from [facility] [employer] [employer] [facility] [employer] [facility] - Occupational Stress Questionnaire Feeling of Stress : Patient declined Social Connections: Patient Declined (04/24/2024) Received from [facility] Social Connection and Isolation Panel [NHANES] Frequency of Communication with Friends and Family: Patient declined Frequency of Social Gatherings with Friends and Family: Patient declined Attends Roman Catholic Services: Patient declined Active Member of Clubs or Organizations: Patient declined Attends Club or Organization Meetings: Patient declined Marital Status: Patient declined Interpersonal Safety: Unknown (04/24/2024) Received from [facility] Humiliation, Afraid, Rape, and Kick questionnaire Fear of Current or Ex-Partner: Patient declined Emotionally Abused: Patient declined Physically Abused: Not on file Sexually Abused: Patient declined Housing Instability: Patient Declined (04/24/2024) Received from [facility] Housing Stability Vital Sign Unable to [...] CT abdomen and pelvis with contrast Order: [id number] Status: Final result Visible to patient: No (scheduled for 07/02/2024 8:00 PM) Next appt: None 0 Result Notes Details Reading Physician Reading Date Result Priority Fito Alexander MD [phone] 06/28/2024 STAT Narrative & Impression CT ABDOMEN [...] unless Cr worsens significantly. Transfuse as necessary. [facility] 06-29-2024 History and physical note Images from the original note were not included. Trauma Surgery History & Physical Examination /Consultation Note Patient: Neptali Loyola Date of : 1945 Estimated time of injury: 06/28/24 afternoon LOC: Unknown Transport: EMS from [place] Trauma level: Level 1 Work related: No History of Present Illness Neptali Loyola is an 78 y.o. White or male presented to [facility] ED via EMS as a level 2 [...] History: Diagnosis Date Coronary artery disease D[facility] [place] Hemorrhoids Memory loss Myocardial infarction [place] Urinary tract infection Fall: Fall occurred: standing [...] Resource Strain: Patient Declined (04/24/2024) Received from [facility] Overall Financial Resource Strain (CARDIA) Difficulty of Paying Living Expenses: Patient declined Food Insecurity: No Food Insecurity (06/29/2024) Hunger Screening Food Insecurity - Worry: Never True Food Insecurity - Inability: Never True Transportation Needs: Patient Declined (04/24/2024) Received from [facility] OMARE - Transportation Lack of Transportation (Medical): Patient declined Lack of Transportation (Non-Medical): Patient declined Physical Activity: Patient Declined (04/24/2024) Received from [facility] Exercise Vital Sign Days of Exercise per Week: Patient declined Minutes of Exercise per Session: Patient declined Stress: Patient Declined (04/24/2024) Received from [facility] [place] [employer] [facility] [employer] [facility] - Occupational Stress Questionnaire Feeling of Stress : Patient declined Social Connections: Patient Declined (04/24/2024) Received from [facility] Social Connection and Isolation Panel [NHANES] Frequency of Communication with Friends and Family: Patient declined Frequency of Social Gatherings with Friends and Family: Patient declined Attends Roman Catholic Services: Patient declined Active Member of Clubs or Organizations: Patient declined Attends Club or Organization Meetings: Patient declined Marital Status: Patient declined Interpersonal Safety: Unknown (04/24/2024) Received from [facility] Humiliation, Afraid, Rape, and Kick questionnaire Fear of Current or Ex-Partner: Patient declined Emotionally Abused: Patient declined Physically Abused: Not on file Sexually Abused: Patient declined Housing Instability: Patient Declined (04/24/2024) Received from [facility] Housing Stability Vital Sign Unable to [...] Result Value Ref Range Blood component type [id number] Unit number [id number] Unit ABO O Unit RH POS Crossmatch Compatible Status of unit ISSUED Expiration Date [id number] BB Type Barcode 5100 ABO Rh Repeat Collection Time: 06/29/24 1:30 AM Result Value Ref Range ABO A RH Positive Crossmatch RBC: Collection Time: 06/29/24 1:30 AM Result Value Ref Range Blood component type [id number] Unit number [id number] Unit ABO O Unit RH POS Crossmatch Compatible Status of unit SELECTED Expiration Date [id number] BB Type Barcode 5100 Crossmatch RBC: Collection Time: 06/29/24 1:30 AM Result Value Ref Range Blood component type W0480X77 Unit number [id number] Unit ABO O Unit RH POS Crossmatch Compatible Status of unit SELECTED Expiration Date [id number] BB Type Barcode 5100 Crossmatch RBC: Collection Time: 06/29/24 1:30 AM Result Value Ref Range Blood component type Q3303I81 Unit number [id number] Unit ABO O Unit RH POS Crossmatch Compatible Status of unit SELECTED Expiration Date [id number] BB Type Barcode 5100 Crossmatch RBC: Collection Time: 06/29/24 1:30 AM Result Value Ref Range Blood component type F5012M66 Unit number [id number] Unit ABO O Unit RH POS Status of unit ISSUED Expiration Date [id number] BB Type Barcode 5100 Crossmatch RBC: Collection Time: 06/29/24 1:30 AM Result Value Ref Range Blood component type Y8026R44 Unit number [id number] Unit ABO O Unit RH POS Status of unit ISSUED Expiration Date [id number] BB Type Barcode 5100 Crossmatch RBC: Collection Time: 06/29/24 1:30 AM Result Value Ref Range Blood component type K2729E61 Unit number [id number] Unit ABO O Unit RH POS Status of unit ISSUED Expiration Date [id number] BB Type Barcode 5100 Crossmatch RBC: Collection Time: 06/29/24 1:30 AM Result Value Ref Range Blood component type X8037Z00 Unit number [id number] Unit ABO O Unit RH POS Status of unit /RELEASED Expiration Date BB Type Barcode 5100 Crossmatch RBC: Collection Time: 06/29/24 1:30 AM Result Value Ref Range Blood component type M5862Z26 Unit number [id number] Unit ABO O Unit RH POS Status of unit /RELEASED Expiration Date BB Type Barcode 5100 Crossmatch RBC: Collection Time: 06/29/24 1:30 AM Result Value Ref Range Blood component type B7018R49 Unit number [id number] Unit ABO O Unit RH POS Status of unit /RELEASED Expiration Date [id number] BB Type Barcode 5100 Protime & INR [...] Procedure Component Value - Date/Time Urine culture [[id number]] Resulted: 06/29/24 0320 Lab Status: In process Specimen: Urine Updated: 06/29/24 0331 Urine culture [[id number]] Collected: 06/28/24 2100 Lab Status: No result Specimen: Urine Blood culture, peripheral #2 [[id number]] Collected: 06/28/24 1907 Lab Status: In process Specimen: Blood, Peripheral Draw Updated: 06/28/24 191 Blood culture, peripheral #1 [[id number]] Collected: 06/28/24 1859 Lab Status: In process Specimen: Blood, Peripheral Draw Updated: 06/28/241913 SARS/FLU A+B/RSV by NAAT/Molecular (M4RT Collection Tube) [[id number]] Collected: 06/28/24 181 Lab Status: Final result [...] operators who are performing tests using either [employer] or [employer] systems and is limited to laboratories that [...] specimen repeat. Fact Sheet for Healthcare Providers: https://www.fda.gov/media/512579/do wnload Fact Sheet for Patients: https://www.fda.gov/media/075386/do wnload Independently reviewed trauma specific results. Radiology [...] is 56.5 and plateaued after trending upward. 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 Patient was transferred to [facility] as a level 2 trauma activation. Due to hypotension he was upgraded to a level 1 activation. Patient evaluated by ATLS protocol. Initial GCS of 15. To crystalloid infusion and then 1 PRBC. No additional testing was done. Patient to be admitted to the surgical intensive care unit with consultation to urology [facility] [email or web address] Work Phone: 06-29-2024 History and physical note Images from the original note were not included. Trauma Surgery History & Physical Examination /Consultation Note Patient: Neptali Loyola Date of : 1945 Estimated time of injury: 06/28/24 afternoon LOC: Unknown Transport: EMS from [place] Trauma level: Level 1 Work related: No History of Present Illness Neptali Loyola is an 78 y.o. White or male presented to [facility] ED via EMS as a level 2 [...] History: Diagnosis Date Coronary artery disease Dementia ([facility]) Hemorrhoids Memory loss Myocardial infarction ([facility]) Urinary tract infection Fall: Fall occurred: standing [...] Resource Strain: Patient Declined (04/24/2024) Received from [facility] Overall Financial Resource Strain (CARDIA) Difficulty of Paying Living Expenses: Patient declined Food Insecurity: No Food Insecurity (06/29/2024) Hunger Screening Food Insecurity - Worry: Never True Food Insecurity - Inability: Never True Transportation Needs: Patient Declined (04/24/2024) Received from [facility] TA - Transportation Lack of Transportation (Medical): Patient declined Lack of Transportation (Non-Medical): Patient declined Physical Activity: Patient Declined (04/24/2024) Received from [facility] Exercise Vital Sign Days of Exercise per Week: Patient declined Minutes of Exercise per Session: Patient declined Stress: Patient Declined (04/24/2024) Received from [facility] [place] [employer] [employer] - Occupational Stress Questionnaire Feeling of Stress : Patient declined Social Connections: Patient Declined (04/24/2024) Received from [facility] Social Connection and Isolation Panel [NHANES] Frequency of Communication with Friends and Family: Patient declined Frequency of Social Gatherings with Friends and Family: Patient declined Attends Roman Catholic Services: Patient declined Active Member of Clubs or Organizations: Patient declined Attends Club or Organization Meetings: Patient declined Marital Status: Patient declined Interpersonal Safety: Unknown (04/24/2024) Received from [facility] Humiliation, Afraid, Rape, and Kick questionnaire Fear of Current or Ex-Partner: Patient declined Emotionally Abused: Patient declined Physically Abused: Not on file Sexually Abused: Patient declined Housing Instability: Patient Declined (04/24/2024) Received from [facility] Housing Stability Vital Sign Unable to [...] Result Value Ref Range Blood component type [id number] Unit number [id number] Unit ABO O Unit RH POS Crossmatch Compatible Status of unit ISSUED Expiration Date [id number] BB Type Barcode 5100 ABO Rh Repeat Collection Time: 06/29/24 1:30 AM Result Value Ref Range ABO A RH Positive Crossmatch RBC: Collection Time: 06/29/24 1:30 AM Result Value Ref Range Blood component type Z8634C51 Unit number [id number] Unit ABO O Unit RH POS Crossmatch Compatible Status of unit SELECTED Expiration Date [id number] BB Type Barcode 5100 Crossmatch RBC: Collection Time: 06/29/24 1:30 AM Result Value Ref Range Blood component type W1873S95 Unit number [id number] Unit ABO O Unit RH POS Crossmatch Compatible Status of unit SELECTED Expiration Date [id number] BB Type Barcode 5100 Crossmatch RBC: Collection Time: 06/29/24 1:30 AM Result Value Ref Range Blood component type Z6925D06 Unit number [id number] Unit ABO O Unit RH POS Crossmatch Compatible Status of unit SELECTED Expiration Date [id number] BB Type Barcode 5100 Crossmatch RBC: Collection Time: 06/29/24 1:30 AM Result Value Ref Range Blood component type S1696K67 Unit number [id number] Unit ABO O Unit RH POS Status of unit ISSUED Expiration Date [id number] BB Type Barcode 5100 Crossmatch RBC: Collection Time: 06/29/24 1:30 AM Result Value Ref Range Blood component type H6907M63 Unit number [id number] Unit ABO O Unit RH POS Status of unit ISSUED Expiration Date [id number] BB Type Barcode 5100 Crossmatch RBC: Collection Time: 06/29/24 1:30 AM Result Value Ref Range Blood component type [id number] Unit number [id number] Unit ABO O Unit RH POS Status of unit ISSUED Expiration Date [id number] BB Type Barcode 5100 Crossmatch RBC: Collection Time: 06/29/24 1:30 AM Result Value Ref Range Blood component type A8519L46 Unit number [id number] Unit ABO O Unit RH POS Status of unit /RELEASED Expiration Date BB Type Barcode 5100 Crossmatch RBC: Collection Time: 06/29/24 1:30 AM Result Value Ref Range Blood component type X1179Q21 Unit number [id number] Unit ABO O Unit RH POS Status of unit /RELEASED Expiration Date [id number] BB Type Barcode 5100 Crossmatch RBC: Collection Time: 06/29/24 1:30 AM Result Value Ref Range Blood component type G8197A44 Unit number [id number] Unit ABO O Unit RH POS Status of unit /RELEASED Expiration Date [id number] BB Type Barcode 5100 Protime & INR [...] Procedure Component Value - Date/Time Urine culture [[id number]] Resulted: 06/29/24 0320 Lab Status: In process Specimen: Urine Updated: 06/29/24 0331 Urine culture [[id number]] Collected: 06/28/24 2100 Lab Status: No result Specimen: Urine Blood culture, peripheral #2 [[id number]] Collected: 06/28/24 1907 Lab Status: In process Specimen: Blood, Peripheral Draw Updated: 06/28/241913 Blood culture, peripheral #1 [[id number]] Collected: 06/28/24 1859 Lab Status: In process Specimen: Blood, Peripheral Draw Updated: 06/28/241913 SARS/FLU A+B/RSV by NAAT/Molecular (M4RT Collection Tube) [[id number]] Collected: 06/28/24 181 Lab Status: Final result [...] operators who are performing tests using either [employer] DX or [employer] Infinity systems and is limited to laboratories [...] specimen repeat. Fact Sheet for Healthcare Providers: https://www.fda.gov/media/927882/do wnload Fact Sheet for Patients: https://www.fda.gov/media/623184/do wnload Independently reviewed trauma specific results. Radiology [...] is 56.5 and plateaued after trending upward. DISPERSION MIXER RVP 85.0% Independently reviewed radiographic studies to [...] PRN Comorbidities/Medical issues: Neuro- Pulm- Cardio- CAD, IN, HTN GI- - CKD, nephrolithiasis Heme- ID- [...] can be reached via Patient Touch Pager: [phone] Cosigned by Ru Schwarz MD at 06/29/2024 [...] left perinephric hematoma. Patient was transferred to [facility] as a level 2 trauma activation. Due to hypotension he was upgraded to a level 1 activation. Patient evaluated by ATLS protocol. Initial GCS of 15. To crystalloid infusion and then 1 PRBC. No additional testing was done. Patient to be admitted to the surgical intensive care unit with consultation to urology documented in this encounter [facility] 06-29-2024 Consult note Associated Order (s): IP CONSULT TO [facility] S[facility] Academic Critical Care CONSULTATION Name: Neptali Loyola Date: 06/29/2024 Length of Stay: 0 day(s) Chief Concern: Chief Complaint Patient presents with Trauma History of Present Illness Neptali Loyola is an 78 y.o. White or male presented to [facility] ED via EMS as a level 2 [...] History: Diagnosis Date Coronary artery disease Dementia [place] Hemorrhoids Memory loss Myocardial infarction ([facility] Urinary tract infection History reviewed. No pertinent [...] Resource Strain: Patient Declined (04/24/2024) Received from [facility] Overall Financial Resource Strain (CARDIA) Difficulty of Paying Living Expenses: Patient declined Food Insecurity: No Food Insecurity (06/29/2024) Hunger Screening Food Insecurity - Worry: Never True Food Insecurity - Inability: Never True Transportation Needs: Patient Declined (04/24/2024) Received from [facility] TA - Transportation Lack of Transportation (Medical): Patient declined Lack of Transportation (Non-Medical): Patient declined Physical Activity: Patient Declined (04/24/2024) Received from [facility] Exercise Vital Sign Days of Exercise per Week: Patient declined Minutes of Exercise per Session: Patient declined Stress: Patient Declined (04/24/2024) Received from [facility] [employer] [facility] [employer] [facility] - Occupational Stress Questionnaire Feeling of Stress : Patient declined Social Connections: Patient Declined (04/24/2024) Received from [facility] Social Connection and Isolation Panel [NHANES] Frequency of Communication with Friends and Family: Patient declined Frequency of Social Gatherings with Friends and Family: Patient declined Attends Roman Catholic Services: Patient declined Active Member of Clubs or Organizations: Patient declined Attends Club or Organization Meetings: Patient declined Marital Status: Patient declined Interpersonal Safety: Unknown (04/24/2024) Received from [facility] Humiliation, Afraid, Rape, and Kick questionnaire Fear of Current or Ex-Partner: Patient declined Emotionally Abused: Patient declined Sexually Abused: Patient declined Housing Instability: Patient Declined (04/24/2024) Received from [facility] Housing Stability Vital Sign Unable to [...] Procedure Component Value Units Date/Time Urine culture [[id number]] Resulted: 06/29/24 0320 Specimen: Urine Updated: 06/29/24 033 Blood culture, peripheral #2 [[id number]] Collected: 06/28/241906 Specimen: Blood, Peripheral Draw Updated: 06/28/241913 Blood culture, peripheral #1 [[id number]] Collected: 06/28/241858 Specimen: Blood, Peripheral Draw Updated: 06/28/241913 SARS/FLU A+B/RSV by NAAT/Molecular (M4RT Collection Tube) [[id number]] Collected: 06/28/241809 Specimen: Nasopharynx Updated: 06/28/241946 FLU [...] Procedure Component Value Units Date/Time Urine culture [[id number]] Resulted: 06/29/24319 Specimen: Urine Updated: 06/29/24330 Blood culture, peripheral #2 [[id number]] Collected: 06/28/241906 Specimen: Blood, Peripheral Draw Updated: 06/28/241913 Blood culture, peripheral #1 [[id number]] Collected: 06/28/241858 Specimen: Blood, Peripheral Draw Updated: 06/28/241913 SARS/FLU A+B/RSV by NAAT/Molecular (M4RT Collection Tube) [[id number]] Collected: 06/28/241809 Specimen: Nasopharynx Updated: 06/28/241946 FLU [...] Meds: None PMH: CAD, hypertension, hyperlipidemia, previous IN, AFib Home meds: Eliquis, Plavix 3. Resp: [...] and titration of care by critical care blank driller. Failure to do so may result in [...] MD Trauma/Surgical Critical Care 06/29/2024 10:06 AM [facility] Work Phone: 06-29-2024 Emergency department Note Pt Blood infusion rate changed to 200 ml/hr by Roxane MCGINNIS, no adverse reactions noted from pt [facility] 06-29-2024 Emergency department Note Pt Blood infusion rate changed to 200 ml/hr by Roxane MCGINNIS, no adverse reactions noted from pt Bed: 18 Expected date: Expected time: Means of arrival: Comments: T1 Pt arrives to the ED as [facility] Adult level two Trauma transfer. Pt is [...] from the original note were not included. [facility] - EMERGENCY DEPARTMENT Pt Name: Neptali Loyola Birthdate: 1945 Chief Complaint: No chief complaint on file. History of Present Illness: Initial evaluation by Dr. Jaimes (attending) and Dr. Chiang (resident) at 1:30 AM 78 y.o. male patient presents to the ED via EMS as a level 2 trauma alert for evaluation of fall. Patient [facility] after his legs gave out and [...] much information himself. 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) Hemorrhoids Memory loss [place] Urinary tract infection Past Surgical History: No [...] Resource Strain: Patient Declined (04/24/2024) Received from [facility] Overall Financial Resource Strain (CARDIA) Difficulty of Paying Living Expenses: Patient declined Food Insecurity: No Food Insecurity (06/28/2024) Hunger Screening Food Insecurity - Worry: Never True Food Insecurity - Inability: Never True Transportation Needs: Patient Declined (04/24/2024) Received from [facility] TA - Transportation Lack of Transportation (Medical): Patient declined Lack of Transportation (Non-Medical): Patient declined Physical Activity: Patient Declined (04/24/2024) Received from [facility] Exercise Vital Sign Days of Exercise per Week: Patient declined Minutes of Exercise per Session: Patient declined Stress: Patient Declined (04/24/2024) Received from [facility] [employer] [employer] [place] [facility] - Occupational Stress Questionnaire Feeling of Stress : Patient declined Social Connections: Patient Declined (04/24/2024) Received from [facility] Social Connection and Isolation Panel [NHANES] Frequency of Communication with Friends and Family: Patient declined Frequency of Social Gatherings with Friends and Family: Patient declined Attends Roman Catholic Services: Patient declined Active Member of Clubs or Organizations: Patient declined Attends Club or Organization Meetings: Patient declined Marital Status: Patient declined Interpersonal Safety: Unknown (04/24/2024) Received from [facility] Humiliation, Afraid, Rape, and Kick questionnaire Fear of Current or Ex-Partner: Patient declined Emotionally Abused: Patient declined Sexually Abused: Patient declined Housing Instability: Patient Declined (04/24/2024) Received from [facility] Stability Vital Sign Unable to Pay for [...] with stent placed earlier this month at [facility]. CT at original facility demonstrated postop changes [...] team was at bedside in the [facility] at time of patient's arrival. Additional labs [...] Attestation: Dr. Fiona Herrera personally performed a nyeg-ri-hkph diagnostic evaluation on this patient. I have [...] lithotripsy with stent earlier this month (at [facility]). CT showing post-op changes left kidney, active extravasation. Dr. Schwarz reviewed CT. It was a ground level fall onto his left side, also striking his face. Talbot to reverse his Eliquis before sending patient. Vitals: 108/44, HR 78, RR 22, 98% on RA. 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 Pt is alert, and oriented and able to answer questions appropriately. Pt arrive with bilateral IVS, and a jorgensen catheter in place. Pt was upgraded to adult level 1 trauma by Trauma Team on arrival. Pt hypotensive on arrival. [facility] 06-29-2024 Emergency department Note Chest xray obtained at this time [facility] 06-29-2024 Emergency department Note EMS stretcher to bed [facility] 06-29-2024 Emergency department Note Pt arrived to ED T1 [facility] 06-29-2024 Physician Emergency department Note Images from the original note were not included. [facility] - EMERGENCY DEPARTMENT Pt Name: Neptali Loyola Birthdate: 1945 Chief Complaint: No chief complaint on file. History of Present Illness: Initial evaluation by Dr. Jaimes (attending) and Dr. Chiang (resident) at 1:30 AM 78 y.o. male patient presents to the ED via EMS as a level 2 trauma alert for evaluation of fall. [facility] after his legs gave out and [...] much information himself. 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) Hemorrhoids Memory loss Myocardial infarction ([facility]) Urinary tract infection Past Surgical History: No [...] Resource Strain: Patient Declined (04/24/2024) Received from [facility] Overall Financial Resource Strain (CARDIA) Difficulty of Paying Living Expenses: Patient declined Food Insecurity: No Food Insecurity (06/28/2024) Hunger Screening Food Insecurity - Worry: Never True Food Insecurity - Inability: Never True Transportation Needs: Patient Declined (04/24/2024) Received from [facility] PRAPARE - Transportation Lack of Transportation (Medical): Patient declined Lack of Transportation (Non-Medical): Patient declined Physical Activity: Patient Declined (04/24/2024) Received from [facility] Exercise Vital Sign Days of Exercise per Week: Patient declined Minutes of Exercise per Session: Patient declined Stress: Patient Declined (04/24/2024) Received from [facility] [place] [facility] [employer] [facility] - Occupational Stress Questionnaire Feeling of Stress : Patient declined Social Connections: Patient Declined (04/24/2024) Received from [facility] Social Connection and Isolation Panel [NHANES] Frequency of Communication with Friends and Family: Patient declined Frequency of Social Gatherings with Friends and Family: Patient declined Attends Roman Catholic Services: Patient declined Active Member of Clubs or Organizations: Patient declined Attends Club or Organization Meetings: Patient declined Marital Status: Patient declined Interpersonal Safety: Unknown (04/24/2024) Received from [facility] Humiliation, Afraid, Rape, and Kick questionnaire Fear of Current or Ex-Partner: Patient declined Emotionally Abused: Patient declined Sexually Abused: Patient declined Housing Instability: Patient Declined (04/24/2024) Received from [facility] Housing Stability Vital Sign Unable to [...] with stent placed earlier this month at [facility]. CT at original facility demonstrated postop changes [...] team was at bedside in the [facility] at time of patient's arrival. Additional labs [...] Attestation: Dr. Fiona Herrera personally performed a [id number] diagnostic evaluation on this patient. I have [...] Do, MD at 06/30/2024 6:33 AM EST [facility] 06-29-2024 Emergency department Note Neptali Loyola (: 45) - Level [address] Schwarz, Fall / Renal Lac 78M, Hx: Afib on Eliquis. Patient had recent lithotripsy with stent earlier this month (at [facility]). CT showing post-op changes left kidney, active extravasation. Dr. Schwarz reviewed CT. It was a ground level fall onto his left side, also striking his face. Talbot to reverse his Eliquis before sending patient. Vitals: 108/44, HR 78, RR 22, 98% on RA. 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 06-29-2024 Emergency department Note Bed: T1 Expected date: Expected time: [facility] Comments: 78 y/o male A&Ox4 [facility] Level 2 trauma transfer HR 65 97% RA RR 16 95/49 500mL bolus initiated by EMS ETA 10 min [facility] 06-19-2024 Note [facility] 06-19-2024 Note [facility] 05-21-2024 Note [facility] 05-21-2024 Note [facility] 04-24-2024 Note [facility] 04-24-2024 Note [facility] 04-19-2024 Note [facility] 04-02-2024 Note [facility] 04-02-2024 Note [facility] 03-13-2024 Note [facility] 03-06-2024 Note [facility] 03-06-2024 Note [facility] 03-06-2024 Note [facility] 03-06-2024 Note [facility] 03-05-2024 Note [facility] 03-05-2024 Note [facility] 03-05-2024 Note [facility] 03-05-2024 Note [facility] 03-05-2024 Note [facility] 03-04-2024 Note [facility] 03-04-2024 Note [facility] 03-04-2024 Note Physical Therapy PM Cancellation note Monday03/04/2024 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 Attempted time : 14:08-14:10 [facility] 03-04-2024 Note [facility] 03-04-2024 Note [facility] 03-04-2024 Note [facility] 03-03-2024 Note [facility] 03-03-2024 Note Sent updates to Lino conn at the [place]. [facility] 03-02-2024 Note [facility] 03-02-2024 Note [facility] 03-02-2024 Note [facility] 03-02-2024 Note [facility] 03-01-2024 Note [facility] 03-01-2024 Note [facility] 03-01-2024 Note [facility] 03-01-2024 Note [facility] 02-29-2024 Note [facility] 02-29-2024 Note [facility] 02-29-2024 Note [facility] 02-29-2024 Note [facility] 02-29-2024 Note [facility] 02-29-2024 Note [facility] 02-29-2024 Note [facility] 02-28-2024 Note [facility] 02-28-2024 Note [facility] 02-28-2024 Note Physical Therapy Patient medically unstable, not appropriate for PT evaluation. Will follow up and evaluate as appropriate. Kuldeep Garces PT, DPT [facility] 02-28-2024 Note Occupational Therapy Name: Neptali Loyola Date of : 1945 Today's Date: 02/28/24 Pt is unable to be seen for therapy at this time secondary to Medically unstable per nsg . Check No Charge Time attempted: 908 [facility] 02-28-2024 Note Discharge Planning U pdate: 0906 Attempted to see patient but was unsuccessful as patient is currently having severe difficulty breathing & talking so they may possible be intubated soon if needed. OTM to follow. [facility] 02-28-2024 Note [facility] 02-28-2024 Note [facility] 02-27-2024 Note [facility] 02-27-2024 Note [facility] 02-27-2024 Note [facility] 02-27-2024 Note [facility] 02-26-2024 Note [facility] 02-26-2024 Note [facility] 02-09-2024 Note [facility] 01-10-2024 Note [facility] 01-10-2024 Note [facility] Evaluation + Plan note No data available for this section [facility] Evaluation note No assessment information [facility] Work Phone: Evaluation note Diagnosis Fall in home, initial encounter- Primary Fall in home, initial encounter Acute blood loss anemia Acute posthemorrhagic anemia documented [facility] No data available for this section [facility] InstructionsNot on filedocumented in this encounter [facility] No data available for this section [facility] Summary Purpose Family History No Family History [...] May 15, 2024 End: May 15, 2024 Category Specialist Relationship Specialty Start Date End Date Miguel Garcia APRN-CHIEF CREW SCHEDULER [address] [place] [phone] PCP - [facility] 02/22/24 Category Specialist Relationship Specialty Start Date End Date Miguel Garcia APRN-CHIEF CREW SCHEDULER [address] [place] [address] PCP - [facility] 02/22/24 Team Status: Inactive Member Role Status Dates Kelvin Langston MD Attending Provider Active Start: August 29, 2024 End: August 29, 2024 (unrecognized sect ion and content) No Status Records FoundNo Status Records FoundNo Status Records FoundNo Status Records FoundNo Status Records Found INFORMATION SOURCE (unrecogn ized section and content) DATE CREATED AUTHOR 01/03/2024 [facility] DATE CREATED AUTHOR AUTHOR'S ORGANIZ ATION 07/17/2024 [facility] DATE CREATED AUTHOR AUTHOR'S ORGANIZ ATION 08/10/2024 [facility] DATE CREATED AUTHOR AUTHOR'S ORGANIZ ATION 09/01/2024 [facility] DATE CREATED AUTHOR AUTHOR'S ORGANIZ ATION 01/07/2025 [facility] Goals (unrecognized section and content) Goals may be documented in a n alternate section Reason for Visit (unrecogniz ed section and content) Reason Comments Trauma Specialty Diagnoses / Procedures Referred By Shasha t Referred To Contact Diagnoses Fall in home, initial encounter Ru Schwarz MD [id number] [place] [address] Phone: tel: fax: Referral ID Status Reason Start Date Expiration Date Visits Re quested Visits Authorized [id number] 1 Reason Onset Date Comments Blood [...] coffee or tea. 2057 (Given - Provider: eZlda Vasquez, RAS) 1002 (Given - Provider: Arjun [...] Hansen RN) 0904 (Given - Provider: Randolph Laguerre, RN)2057 (Given - Provider: Zelda Vasquez, RN) 0900 (Given - Provider: Arjun Buchanan RN) spironolactone (ALDACTONE) tablet 12.5 mg 12.5 mg, oral, Nightly, First dose on Mon07/02/24 at 2200 2122 (Given - Provider: Jazímn Hansen RN) 2100 (Given - Provider: Zelda [...] VESICANT (RED) Warning: HYPERTONIC solution. flu vacc [id number] 6mos up(PF) (FLULAVAL/FLUZONE/FLUARIX TRIV) injection syringe 0.5 [...] BE BASED ON THE PRIMARY CLINICAL RECORDS. [employer] provides no warranty or guarantee of the accuracy or completeness of information in this document.
== END 2025-01-08 09:59 | disposition home or self-care (01) ==
LOC: US 09:58
PROVIDERS: PCP Family Medicine; Visit Provider Family Medicine
DX: R60.0 Localized edema (principal); I70.219 Atherosclerosis of native arteries of extremities with intermittent claudication, unspecified extremity
CPT/HCPCS: 93970

== ENCOUNTER 2025-01-08 09:59 | Outpatient (OUT) | payer MEDICARE, SELFPAY ==
--- OUTSIDE RECORDS SUMMARY | 2025-01-08 10:01 | XMS_ITS | Clinical Summary ---
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 Name Role Phone Mere Gerber COMMUNITY RELATIONS DIRECTOR-SALES ENGINEER [employer] Primary Care Provider Allergies No known active [...] drink = 0.6 oz pur e alcohol) [facility] Utilities Answer Date Recorded In the past 12 months has e [employer], gas, oil, or water [employer] threatened to shut off services in your [...] law Medical Devices Not on file Insurance [facility] Advance Directives * Full Code (Latest Code Status on File) Date Activated Date Inactivated Comments 06/29/2024 2:29 AM 07/04/2024 7:36 PM Care Teams Dairy Store Manager Relationship Specialty Start Date End Date Mere Gerber, COMMUNITY RELATIONS DIRECTOR-SALES ENGINEER [employer] [address] [facility], [place] [address] PCP - General Family Medicine 02/22/24
--- NOTE | 2025-01-08 10:03 | US_ITS ---
The [address] [address] Patient Name: JUSTUS LOYOLA MRN: [id number] date: 1945 Sex: M Assigned Patient Location: [place] Current Patient Location: [place] Accession/Order Number: [id number] Exam Date: 01/08/2025 10:04 Report Date: 01/08/2025 11:59 At the request of: IGNACIA DELAROSA MD Procedure: US renal BI BILATERAL RENAL AND BLADDER ULTRASOUND CLINICAL HISTORY: Kidney Stones COMPARISON: 12/13/[address] 12/11/2023 Estimation of renal size is approximately 9.9 cm on the right and 8.7 cm on the left. There are multiple echogenic shadowing stones within the left kidney measuring up to 2.4 cm in size in the area of the renal pelvis. There is another dominant stone at the inferior pole measuring 14 mm. No hydronephrosis is seen. There is an exophytic cyst at the lower pole on the right measuring 3.1 x 2.6 x 2.4 cm. There is no perinephric fluid. The urinary bladder is partially distended with a volume of 418 mL. No contour or intraluminal abnormalities are seen. US/US renal BI IMPRESSION: RIGHT RENAL CYST. LEFT NEPHROLITHIASIS. NO OBSTRUCTIVE UROPATHY. Impression dictated by: Katy Galeana M.D. 01/08/2025 11:59 AM Dictation Location: [place] [address] Electronically authenticated by: [id number] Y Date: 01/08/2025 11:59
--- OUTSIDE RECORDS SUMMARY | 2025-01-08 10:21 | XMS_ITS | CCD ---
Author Organization [facility] Care Team Providers Care Air Launch Weapons Technician Name Role Phone JAD MITCHELL Primary Care Physician [phone] Nova Wang Attending Unavailable TABITHA LEUNG Attending Unavailable Nova Wang Referring Unavailable Nova Wang Attending Unavailable Nova Wang Attending Unavailable Nova Wang Referring Unavailable Nova Wang Attending Unavailable Kelvin Langston MD Attending Provider Radha QUALITY IMPROVEMENT CONSULTANT-ELECTRIC 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, Miguel S Primary Care Provider RADHA, MIGUEL S Primary Care Unavailable ALFRED VALENZUELA Consulting Unavailable RU SCHWARZ Admitting Unavailable RU SCHWARZ Attending Unavailable WILBERTO LOOMIS Consulting Unavailable RADHA, MIGUEL S Referring Unavailable RADHA, MIGUEL S Primary Care Unavailable RADHA, MIGULE S Referring Unavailable RADHA, MIGUEL S Primary [...] Admitting Unavailable Kelvin Langston MD Attending Provider PRADEEP, ABE Referring Unavailable EKWENNA, OBI Attending [...] hydrochloride 10 mg oral tablet (4 sources) I-lncmas-K-asp artate Receptor Antagonist Start: 06-29-2024 End: 07-04-2024 take 10 mg by mouth twice daily 10 mg, oral, 2 times daily, First dose on Mon06/29/24 at 2100 Start: 06-18-2024 take 1 capsule by [facility] every twenty-four hours in the morning memantine [...] Administer over 2-5 minutes. polyethylene glycol 3350 55867 mg powder for oral solution (2 sources) [...] disease (7 sources) Atherosclerotic heart disease of [place] coronary artery without angina pectoris; Translations: [Old [...] Interpretation Reference Range Facility Follow-Upon 01-06-2025 Follow-Up [facility] Orders Onlyon 12-29-2024 Orders Only Normal [facility] ANESon 12-19-2024 ANES Normal [facility] HPon 12-19-2024 HP Normal [facility] NURSNOTEon 12-19-2024 NURSNOTE Normal [facility] HPon 12-09-2024 HP Normal [facility] Orders Onlyon 11-26-2024 Orders Only Normal [facility] Orders Onlyon 11-25-2024 Orders Only Normal [facility] 37on 11-12-2024 37 [facility] Orders Onlyon 11-12-2024 Orders Only [facility] 37on 10-30-2024 37 Normal [facility] Orders Onlyon 10-19-2024 Orders Only [facility] Follow-Upon 10-17-2024 Follow-Up [facility] Orders Onlyon 09-27-2024 Orders Only [facility] ANESon 09-04-2024 ANES Normal [facility] ANES Normal [facility] HISTOLOGY - TISSUE EXAMon LAB AP ADDENDUM 1 09-17-24: Normal [facility] Comment on above: Order Comment: Pre-o p diagnosis:Kidney stone [N20.0] Result Comment: This case was sent to the Urolithiasis Laboratory in [place], [place] for chemical analysis (please see accompanying report). Please see results below:Urolithiasis Results:No nidus observed in the specimenThe stone is composed of: Calcium oxalate monohydrate: 90% Calcium phosphate (Apatite): 10%Addendum electronically signed by Jaxon Acosta MD on 09/18/2024 at 4:41 PM Performed By: #### L [id number] ####[facility] (BEAKER)[address] [place] [address] LAB AP CASE REPORT Normal [facility] Comment on above: Order Comment: Pre-o p diagnosis:Kidney stone [N20.0] Result Comment: Surg ical Pathology Case: [id number] Provider: Tino Langston MD Collected: 09/04/2024 1108Ordering Location: [facility] Main Operating Room Received: 09/04/2024 1305Pathologist: JERONIMO Morenopecimen: Kidney, KIDNEY STONE FOR ANALYSIS Performed By: #### L [id number] ####[facility] (BEAKER)[address] [place] [address] LAB AP CLINICAL INFORMATION [facility] Comment on above: Order Comment: Pre-o p diagnosis:Kidney stone [N20.0] Result Comment: Pre- op diagnosis:Kidney stone [N20.0] Performed By: #### L [id number] ####[facility] (BEAKER)[address] [place] [place] [address] LAB AP GROSS DESCRIPTION A. Kidney. [facility] Comment on above: Order Comment: Pre-o p diagnosis:Kidney stone [N20.0] Result Comment: The specimen is received fresh labeled Edward Shiets and kidney stone for analysis. It consists of a 0.3 x 0.2 x 0.1 cm yellow-brown, firm, roughened stone. The specimen is for gross examination only and is to be sent to the Urolithiasis lab in [place], [place] for chemical analysis.Rhiannon Mercado, Pathologists' Filter Tip Inspector studentTabitha Aggarwal Pathologists' Filter Tip Inspector Student Performed By: #### L [id number] ####[facility] (BEAKER)[address] [place] [address] LAB AP MICROSCOPIC DESCRIPTION Gross examination only. [facility] Comment on above: Order Comment: Pre-o p diagnosis:Kidney stone [N20.0] Performed By: #### L [id number] ####[facility] (BEAKER)[address] [place] [address] LAB AP REPORT FINAL DIAGNOSIS NARRATIVE [facility] Comment on above: Order Comment: Pre-o p diagnosis:Kidney stone [N20.0] Result Comment: cherri Forman for analysis: - Gross examination consistent with renal calculus. - Specimen forwarded to reference laboratory for chemical analysis. Performed By: #### L [id number] ####[facility] ([facility])[address] [place] [address] HPon 09-04-2024 HP Normal [facility] OPNOTEon 09-04-2024 OPNOTE Normal [facility] POCT GLUCOSE METER UNSOLICIT ED RESULTSon 09-04-2024 Glucose [Mass/Vol] 80 mg/dL Normal 70-105 [facility] Comment on above: Order Comment: Waive d Testing in the ED is performed under the ED CLIA certificate #[id number]. Result Comment: jhag eman Performed By: #### L [id number] ####[facility] ([facility])[address] [place] [address] APTTon 08-30-2024 ACTIVATED PARTIAL THROMBOPLASTIN TIME IN PPP BY COAGULATION ASSAY 30.3 Seconds Normal 25.0-35.0 [facility] Comment on above: Result Comment: Clin ical significance of the APTT is questionable in the presence of heparin. Performed By: #### L [id number] ####[facility] ([facility])[address] [place] [address] CBC WITH AUTO DIFFERENTIALon 08-30-2024 Basophils (Bld) [#/Vol] 0.06 10*3/uL Normal 0.00-0.20 [facility] Comment on above: Performed By: #### L [id number] ####[facility] ([facility])[address] [place] [address] Basophils/100 WBC (Bld) 1.0 % Normal 0.0-1.0 [facility] Comment on above: Performed By: #### L [id number] ####[facility] ([facility])[address] [place] [address] Eosinophils (Bld) [#/Vol] 0.24 10*3/uL Normal 0.00-0.5 0 [facility] Comment on above: Performed By: #### L [id number] ####[facility] (BEAKER)[address] [place] [address] Eosinophils/100 WBC (Bld) 3.8 % Normal 0.0-6.0 [facility] Comment on above: Performed By: #### L [id number] ####[facility] (BEAKER)[address] [place] [address] Erythrocyte distribution width (RBC) [Ratio] 17.0 % High 11.5-15.[address] [facility] Comment on above: Performed By: #### L [id number] ####[facility] [place] [address] ERYTHROCYTE MEAN CORPUSCULAR HEMOGLOBIN CONCENTRATION (G/DL) BY AUTOMATED 31.2 g/dL Low 32.0-35.0 [facility] Comment on above: Performed By: #### L [id number] ####[facility] [place] [address] Hematocrit (Bld) [Volume fraction] 42.6 % Normal 39.0-50.0 [facility] Comment on above: Performed By: #### L [id number] ####[facility] (BEAKER)[address] [place] [address] Hemoglobin (Bld) [Mass/Vol] 13.3 g/dL Normal 13.0-17.0 [facility] Comment on above: Performed By: #### L [id number] ####[facility] (BEAKER)[address] [place] [address] Immature granulocytes (Bld) [#/Vol] 0.02 10*3/uL Normal 0.00-0.20 [facility] Comment on above: Performed By: #### L [id number] ####[facility] (BEAKER)[address] [place] [address] Immature granulocytes/100 WBC (Bld) 0.3 % Normal 0.0-1.0 [facility] Comment on above: Performed By: #### L [id number] ####[facility] (BEAKER)[address] [place] [address] Lymphocytes (Bld) [#/Vol] 1.29 10*3/uL Normal 1.20-4.0 0 [facility] Comment on above: Performed By: #### L [id number] ####[facility] (BEAKER)[address] [place] [address] Lymphocytes/100 WBC (Bld) 20.6 % Normal 20.0-45.0 [facility] Comment on above: Performed By: #### L [id number] ####[facility] (BEAKER)[address] [place] [address] MCH (RBC) [Entitic mass] 30.5 pg Normal 27.0-33.0 [facility] Comment on above: Performed By: #### L [id number] ####[facility] (BEAKER)[address] [place] [address] MCV (RBC) [Entitic vol] 97.7 fL Normal 82.0-98.0 [facility] Comment on above: Performed By: #### L [id number] ####[facility] (BEAKER)[address] [place] [address] Monocytes (Bld) [#/Vol] 0.53 10*3/uL Normal 0.10-1.00 [facility] Comment on above: Performed By: #### L [id number] ####[facility] (BEAKER)[address] [place] [address] Monocytes/100 WBC (Bld) 8.5 % Normal 5.0-12.0 [facility] Comment on above: Performed By: #### L [id number] ####[facility] (BEAKER)[address] [place] [address] Neutrophils (Bld) [#/Vol] 4.12 10*3/uL Normal 1.60-7.6 0 [facility] Comment on above: Performed By: #### L [id number] ####[facility] (BEAKER)[address] [place] [address] Neutrophils/100 WBC (Bld) 65.8 % Normal 40.0-72.0 [facility] Comment on above: Performed By: #### L [id number] ####[facility] ([facility])[address] [place] [address] NRBC (PER 100 WBCS) BY AUTOMATED COUNT 0.0 % Normal 0 [facility] Comment on above: Performed By: #### L [id number] ####[facility] ([facility])[address] [place] [address] PLATELETS (10*3/UL) IN BLOOD AUTOMATED COUNT 189 10*3/uL Normal 150-400 [facility] Comment on above: Performed By: #### L [id number] ####[facility] ([facility])[address] [place] [address] RBC (Bld) [#/Vol] 4.36 10*6/uL Normal 4.20-5.70 [facility] Comment on above: Performed By: #### L [id number] ####[facility] ([facility])[address] [place] [address] WBC (Bld) [#/Vol] 6.26 10*3/uL Normal 4.00-10.60 [facility] Comment on above: Performed By: #### L [id number] ####[facility] ([facility])[address] [place] [address] HPon 08-30-2024 HP Normal [facility] Labon 08-30-2024 Lab Normal [facility] PROTIME-INRon 08-30-2024 INR IN PPP BY COAGULATION ASSAY 1.15 High 0.90-1.10 [facility] Comment on above: Result [...] CHEST 1995;108:231S-246S. Performed By: #### L [id number] ####[facility] ([facility])[address] [place] [address] PROTHROMBIN TIME (PT) IN PPP BY COAGULATION ASSAY 14.7 Seconds Normal 12.3-14.8 [facility] Comment on above: Performed By: #### L [id number] ####[facility] ([facility])[address] [place] [address] Pre-Admission Testingon 08-13 Pre-Admission Testing Normal [facility] T4, FREEon 08-30-2024 THYROXINE (T4) FREE (NG/DL) IN SER/PLAS 1.24 ng/dL Normal 0.71-1.[address] [facility] Comment on above: Performed By: #### L [id number] ####[facility] ([facility])[address] [place] [address] TSHon 08-30-2024 THYROTROPIN (MIU/L) IN SER/PLAS BY DETECTION LIMIT <= 0.05 MIU/L 2.01 mIU/L Normal 0.34-5.[address] [facility] Comment on above: Performed By: #### L [id number] ####[facility] ([facility])[address] [place] [address] Urine Cultureon 08-29-2024 Bacteria identified Cx Nom (U) <9,000 colonies/ml mixed bacterial skin contaminants 2 Days PERFORMED BY: [facility] [place] [address] PATHOLOGIST MANAGER COLLEGE MARTINE BAIN M.D. Normal [facility] Comment on above: Performed By: #### C UU #### [facility] [address] [id number] [facility] 36on 08-02-2024 36 Called POA ( son ) Patrice to reschedule sx from 08/13 - no answer , lvm for him to call back in office. Normal [facility] 36on 08-01-2024 36 Pt is scheduled surgery for 08/13/24 and needs to change the date. Please advise and call patient's son with new date. Normal [facility] Follow-Upon 07-19-2024 Follow-Up [facility] CBC AND AUTO DIFFon 07-09-19 ABSOLUTE BASOPHIL 0.1 X10E9/L Normal 0.0-0.2 [facility] Comment on above: Performed By: #### P INR, 49445-7 #### [facility] ([id number]) [address] [place] [address] #### CBCA, CMP #### [facility] ([id number]) [facility] [facility], [address] [place] [address] ABSOLUTE NEUTROPHIL 5.3 X10E9/L Normal 1.5-6.6 [facility] Comment on above: Performed By: #### P INR, 82897-5 #### [facility] ([id number]) [address] [place] [address] #### CBCA, CMP #### [facility] ([id number]) [address] [place] [address] Basophils/100 WBC (Bld) 0.7 % Normal P [facility] Comment on above: Performed By: #### P INR, 65053-9 #### [facility] ([id number]) [address] [place] [address] 95090 #### CBCA, CMP #### [facility] ([id number]) [address] [place] [address] Eosinophils (Bld) [#/Vol] 0.1 10*3/uL Normal 0.0-0.4 [facility] Comment on above: Performed By: #### P INR, 52460-3 #### [facility] ([id number]) [address] [place] [address] 61295 #### CBCA, CMP #### [facility] ([id number]) [address] [place] [address], [facility] [address] [place] [address] Eosinophils/100 WBC (Bld) 1.8 % Normal [facility] Comment on above: Performed By: #### P INR, 17434-8 #### [facility] ([id number]) [address] [place] [address] 29663 #### CBCA, CMP #### [facility] ([id number]) [address] [facility], [address] [place] [address] Erythrocyte distribution width (RBC) [Ratio] 15.3 % High 11.5-15.0 [facility] Comment on above: Performed By: #### P INR, 08559-7 #### [facility] ([id number]) [address] [place] [address] 55382 #### CBCA, CMP #### [facility] ([id number]) [address] [facility], [address] [place] [address] Hematocrit (Bld) [Volume fraction] 23.8 % Low 39-49 [facility] Comment on above: Performed By: #### P INR, 27692-5 #### [facility] ([id number]) [address] [place] [address] 21065 #### CBCA, CMP #### [facility] ([id number]) [address], [address] [place] [address] Hemoglobin (Bld) [Mass/Vol] 8.1 g/dL Low 13.0-17.0 [facility] Comment on above: Performed By: #### P INR, 71453-4 #### [facility] ([id number]) [address] [place] [address] 66193 #### CBCA, CMP #### [facility] ([id number]) [address], [address] [place] [address] Lymphocytes (Bld) [#/Vol] 1.2 10*3/uL Normal 1.0-3.5 [facility] Comment on above: Performed By: #### P INR, 56007-1 #### [facility] ([id number]) [address] [place] [address] 90873 #### CBCA, CMP #### [facility] ([id number]) [address] [place] [address] Lymphocytes/100 WBC (Bld) 16.3 % Normal [facility] Comment on above: Performed By: #### P INR, 23285-7 #### [facility] ([id number]) [address] [place] [address] 76469 #### CBCA, CMP #### [facility] ([id number]) [address], [address] [place] [address] MCH (RBC) [Entitic mass] 31.8 pg Normal 27-34 [facility] Comment on above: Performed By: #### P INR, 34913-5 #### [facility] ([id number]) [address] [place] [address] 60479 #### CBCA, CMP #### [facility] ([id number]) [address] [place] [address] MCHC (RBC) [Mass/Vol] 34.1 g/dL Normal 32-36 [facility] Comment on above: Performed By: #### P INR, 96371-0 #### [facility] ([id number]) [address] [place] [address] 22828 #### CBCA, CMP #### [facility] ([id number]) [address], [address] [place] [address] MCV (RBC) [Entitic vol] 93 fL Normal 80-100 P [facility] Comment on above: Performed By: #### P INR, 60190-5 #### [facility] ([id number]) [address] [place] [address] 41707 #### CBCA, CMP #### [facility] ([id number]) [address] [place] [address] Monocytes (Bld) [#/Vol] 0.5 10*3/uL Normal 0-0.9 [facility] Comment on above: Performed By: #### P INR, 55882-1 #### [facility] ([id number]) [address] [place] [address] 97423 #### CBCA, CMP #### [facility] ([id number]) [address], [address] [place] [address] Monocytes/100 WBC (Bld) 7.0 % Normal P [facility] Comment on above: Performed By: #### P INR, 58435-0 #### [facility] ([id number]) [address] [place] [address] 30863 #### CBCA, CMP #### [facility] ([id number]) [address], [address] [place] [address] Neutrophils/100 WBC (Bld) 74.2 % Normal [facility] Comment on above: Performed By: #### P INR, 23154-1 #### [facility] ([id number]) [address] [place] [address] 34514 #### CBCA, CMP #### [facility] ([id number]) [address] [place] [address] Platelet mean volume (Bld) [Entitic vol] 8.7 fL Normal 7-12 [facility] Comment on above: Performed By: #### P INR, 79343-1 #### [facility] ([id number]) [address] [place] [address] 86096 #### CBCA, CMP #### [facility] ([id number]) [address] [place] [address] Platelets (Bld) [#/Vol] 284 10*3/uL Normal 150-450 [facility] Comment on above: Performed By: #### P INR, 32957-3 #### [facility] ([id number]) [address] [place] [address] 51453 #### CBCA, CMP #### [facility] ([id number]) [address] [place] [address] RBC COUNT 2.55 X10E12/L Low 4.10-5.70 [facility] Comment on above: Performed By: #### P INR, 24451-2 #### [facility] ([id number]) [address] [place] [address] 30841 #### CBCA, CMP #### [facility] ([id number]) [address] [place] [address] WBC (Bld) [#/Vol] 7.2 10*3/uL Normal 4.0-11.0 [facility] Comment on above: Performed By: #### P INR, 64465-7 #### [facility] ([id number]) [address] [place] [address] 50571 #### CBCA, CMP #### [facility] ([id number]) [address], [address] [place] [address] COMPREHENSIVE METABOLIC PANE Larry 07-09-2024 Albumin [Mass/Vol] 2.6 g/dL Low 3.2-5.3 [facility] Comment on above: Performed By: #### P INR, 69462-1 #### [facility] ([id number]) [address] [place] [address] 40215 #### CBCA, CMP #### [facility] ([id number]) [address] [place] [address] ALP [Catalytic activity/Vol] 73 U/L Normal 39-130 [facility] Comment on above: Performed By: #### P INR, 00607-7 #### [facility] ([id number]) [address] [place] [address] 13694 #### CBCA, CMP #### [facility] ([id number]) [address] [place] [address] ALT [Catalytic activity/Vol] 37 U/L Normal 0-40 [facility] Comment on above: Performed By: #### P INR, 33289-3 #### [facility] ([id number]) [address] [place] [address] 28222 #### CBCA, CMP #### [facility] ([id number]) [address] [place] [address] Anion gap [Moles/Vol] 6 mmol/L Normal 5-15 [facility] Comment on above: Performed By: #### P INR, 33630-4 #### [facility] ([id number]) [address] [place] [address] #### CBCA, CMP #### [facility] ([id number]) [address] [place] [address] AST [Catalytic activity/Vol] 58 U/L High 0-41 [facility] Comment on above: Performed By: #### P INR, 89896-7 #### [facility] ([id number]) [address] [place] [address] 27011 #### CBCA, CMP #### [facility] ([id number]) [address] [facility], [address] [place] [address] Bilirubin [Mass/Vol] 1.0 mg/dL Normal 0.3-1.2 [facility] Comment on above: Performed By: #### P INR, 99333-6 #### [facility] ([id number]) [address] [place] [address] 43477 #### CBCA, CMP #### [facility] ([id number]) [address] [facility], [address] [place] [address] Calcium [Mass/Vol] 8.5 mg/dL Normal 8.5-10.5 [facility] Comment on above: Performed By: #### P INR, 97389-8 #### [facility] ([id number]) [address] [place] [address] 33829 #### CBCA, CMP #### [facility] ([id number]) [address] [place] [address] Chloride [Moles/Vol] 106 mmol/L Normal 98-109 [facility] Comment on above: Performed By: #### P INR, 70025-1 #### [facility] ([id number]) [address] [place] [address] 35128 #### CBCA, CMP #### [facility] ([id number]) [address] [place] [address] CO2 [Moles/Vol] 26 mmol/L Normal 22-32 [facility] Comment on above: Performed By: #### P INR, 51395-2 #### [facility] ([id number]) [address] [place] [address] 99412 #### CBCA, CMP #### [facility] ([id number]) [address], [address] [place] [address] Creatinine [Mass/Vol] 1.72 mg/dL High 0.70-1.20 [facility] Comment on above: Result Comment: METH OD TRACEABLE TO IDMS STANDARD Performed By: #### P INR, 72595-4 #### [facility] ([id number]) [address] [place] [id number] #### CBCA, CMP #### [facility] ([id number]) [address] [place] [address] GFR/1.73 sq M.predicted among non-blacks MDRD (S/P/Bld) [Vol rate/Area] 40 mL/min/{1.73_m2} Low >59 [facility] Comment on above: Result Comment: Reported eGFR is based on the CKD-EPI 2020 equation that does not use a race coefficient. Performed By: #### P INR, 75564-7 #### [facility] ([id number]) [address] [place] [id number] #### CBCA, CMP #### [facility] ([id number]) [address], [address] [place] [address] Glucose [Mass/Vol] 97 mg/dL Normal 65-99 [facility] [facility] Comment on above: Performed By: #### P INR, 23497-2 #### [facility] ([id number]) [address] [place] [address] [place] [address] #### CBCA, CMP #### [facility] ([id number]) [address], [address] [place] [address] Potassium [Moles/Vol] 4.0 mmol/L Normal 3.5-5.0 [facility] Comment on above: Performed By: #### P INR, 87419-8 #### [facility] ([id number]) [address] [place] [address] 11889 #### CBCA, CMP #### [facility] ([id number]) [facility] [place] [address] Protein [Mass/Vol] 6.4 g/dL Normal 6.0-8.0 [facility] Comment on above: Performed By: #### P INR, 87411-8 #### [facility] ([id number]) [address] [place] [address] 02233 #### CBCA, CMP #### [facility] ([id number]) [address], [address] [place] [address] Sodium [Moles/Vol] 138 mmol/L Normal 134-146 [facility] Comment on above: Performed By: #### P INR, 26634-7 #### [facility] ([id number]) [address] [place] [address] 78088 #### CBCA, CMP #### [facility] ([id number]) [address], [address] [place] [address] Urea nitrogen [Mass/Vol] 30 mg/dL High 5-27 [facility] Comment on above: Performed By: #### P INR, 87707-9 #### [facility] ([id number]) [address] [place] [address] 77686 #### CBCA, CMP #### [facility] ([id number]) [address] [place] [address] CT ABDOMEN AND PELVIS W CONT on [...] Cobb MD on 07/09/2024 6:35 PM Normal [facility] LIPASEon 07-09-2024 Lipase [Catalytic activity/Vol] 32 U/L Normal 17-40 [facility] Comment on above: Performed By: #### P INR, 74499-3 #### [facility] ([id number]) [address] [place] [address] 16634 #### CBCA, CMP #### [facility] ([id number]) [address], [address] [place] [address] Lactate (P rosanne) [Moles/Vol]o n 07-09-2024 LACTATE W/REFLEX 1.2 mmol/L Normal 0.4-2.0 [facility] Comment on above: Result Comment: Result did not trigger repeat Lactate, re-order if needed. Performed By: #### P INR, 08957-7 #### [facility] ([id number]) [address] [place] [address] 07635 #### CBCA, CMP #### [facility] ([id number]) [address] [place] [address] MAGNESIUMon 07-09-2024 Magnesium [Mass/Vol] 2.2 mg/dL Normal 1.8-2.6 [facility] Comment on above: Performed By: #### P INR, 14886-7 #### [facility] ([id number]) [address] [place] [address] 15989 #### CBCA, CMP #### [facility] ([id number]) [address] [place] [address] URINE CULTUREon 07-09-2024 Bacteria identified Cx Nom (U) CULTURE RESULTS NO GROWTH AT <1000 CFU/mL Normal [facility] Comment on above: Performed By: #### P INR, 85853-0 #### [facility] ([id number]) [address] [place] [address] 45223 #### CBCA, CMP #### [facility] ([id number]) [address] [place] [address] URN MACROSCOPIC NURon 2024 BILIRUBIN DIANE Small Abnormal NEG [facility] Comment on above: Performed By: #### P INR, 12221-8 #### [facility] ([id number]) [address] [place] [address] 41395 #### CBCA, CMP #### [facility] ([id number]) [address] [place] [address] BLOOD/HGB DIANE Large Abnormal NEG [facility] Comment on above: Performed By: #### P INR, 34818-8 #### [facility] ([id number]) [address] [place] [address] 01336 #### CBCA, CMP #### [facility] ([id number]) [address] [place] [address] GLUCOSE DIANE >=1000 Abnormal NEG [facility] Comment on above: Performed By: #### P INR, 61844-4 #### [facility] ([id number]) [address] [place] [address] 91583 #### CBCA, CMP #### [facility] ([id number]) [address] [place] [address] KETONES DIANE Negative Normal NEG [facility] Comment on above: Performed By: #### P INR, 96010-9 #### [facility] ([id number]) [address] [place] [address] 82470 #### CBCA, CMP #### [facility] ([id number]) [address] [place] [address] LEUKOCYTE ESTERASE DIANE Large Abnormal NEG [facility] Comment on above: Performed By: #### P INR, 34524-4 #### [facility] ([id number]) [address] [place] [address] 93644 #### CBCA, CMP #### [facility] ([id number]) [address] [place] [address] NITRITE DIANE Negative Normal NEG [facility] Comment on above: Performed By: #### P INR, 86427-1 #### [facility] ([id number]) [address] [place] [address] 77081 #### CBCA, CMP #### [facility] ([id number]) [address] [place] [address] PH DIANE 7.0 Normal 5.0-8.5 [facility] Comment on above: Performed By: #### P INR, 10392-9 #### [facility] ([id number]) [address] [place] [address] 93232 #### CBCA, CMP #### [facility] ([id number]) [address] [place] [address] PROTEIN DIANE >=300 Abnormal NEG [facility] Comment on above: Performed By: #### P INR, 75318-2 #### [facility] ([id number]) [address] [place] [address] 30057 #### CBCA, CMP #### [facility] ([id number]) [address], [address] [place] [address] SPECIFIC GRAVITY DIANE 1.015 Normal 1.003-1 .03 5 [facility] Comment on above: Performed By: #### P INR, 21996-1 #### [facility] ([id number]) [address] [place] [address] 92452 #### CBCA, CMP #### [facility] ([id number]) [address], [address] [place] [address] UROBILINOGEN DIANE >=8.0 Normal <1.1 [facility] Comment on above: Performed By: #### P INR, 26307-8 #### [facility] ([id number]) [address] [place] [address] 80345 #### CBCA, CMP #### [facility] ([id number]) [address] [place] [address] CBC AND AUTO DIFFon 07-05-19 25 ABSOLUTE BASOPHIL 0.1 X10E9/L Normal 0.0-0.2 [facility] Comment on above: Performed By: #### P INR, 86412-9 #### [facility] ([id number]) [address] [place] [address] 05870 #### CBCA, CMP #### [facility] ([id number]) [address] [place] [address] ABSOLUTE NEUTROPHIL 8.8 X10E9/L High 1.5-6.6 [facility] Comment on above: Performed By: #### P INR, 51451-4 #### [facility] ([id number]) [address] [place] [address] 53532 #### CBCA, CMP #### [facility] ([id number]) [address] [address] [place] [address] Basophils/100 WBC (Bld) 0.5 % Normal P [facility] Comment on above: Performed By: #### P INR, 38060-4 #### [facility] ([id number]) [address] [place] [address] 21095 #### CBCA, CMP #### [facility] ([id number]) [address] [place] [address] Eosinophils (Bld) [#/Vol] 0.1 10*3/uL Normal 0.0-0.4 [facility] Comment on above: Performed By: #### P INR, 58866-0 #### [facility] ([id number]) [address] [place] [address] 68811 #### CBCA, CMP #### [facility] ([id number]) [address] [place] [address] Eosinophils/100 WBC (Bld) 1.1 % Normal [facility] Comment on above: Performed By: #### P INR, 14596-6 #### [facility] ([id number]) [address] [place] [address] 49785 #### CBCA, CMP #### [facility] ([id number]) [address] [place] [address] Erythrocyte distribution width (RBC) [Ratio] 15.2 % High 11.5-15.0 [facility] Comment on above: Performed By: #### P INR, 05328-5 #### [facility] ([id number]) [address] [place] [address] 93587 #### CBCA, CMP #### [facility] ([id number]) [address] [place] [address] Hematocrit (Bld) [Volume fraction] 32.7 % Low 39-49 [facility] Comment on above: Performed By: #### P INR, 39525-4 #### [facility] ([id number]) [address] [place] [address] 68391 #### CBCA, CMP #### [facility] ([id number]) [address] [place] [address] Hemoglobin (Bld) [Mass/Vol] 10.9 g/dL Low 13.0-17.0 [facility] Comment on above: Performed By: #### P INR, 72355-3 #### [facility] ([id number]) [address] [place] [address] 27371 #### CBCA, CMP #### [facility] ([id number]) [address], [address] [place] [address] Lymphocytes (Bld) [#/Vol] 1.0 10*3/uL Normal 1.0-3.5 [facility] Comment on above: Performed By: #### P INR, 64460-0 #### [facility] ([id number]) [address] [place] [address] 14784 #### CBCA, CMP #### [facility] ([id number]) [address] [place] [address] Lymphocytes/100 WBC (Bld) 9.0 % Normal [facility] Comment on above: Performed By: #### P INR, 07988-8 #### [facility] ([id number]) [address] [place] [address] 58564 #### CBCA, CMP #### [facility] ([id number]) [address] [place] [address] MCH (RBC) [Entitic mass] 31.0 pg Normal 27-34 [facility] Comment on above: Performed By: #### P INR, 39898-2 #### [facility] ([id number]) [address] [place] [address] 96324 #### CBCA, CMP #### [facility] ([id number]) [address] [place] [address] MCHC (RBC) [Mass/Vol] 33.2 g/dL Normal 32-36 [facility] Comment on above: Performed By: #### P INR, 18852-2 #### [facility] ([id number]) [address] [place] [address] 63075 #### CBCA, CMP #### [facility] ([id number]) [address] [place] [address] MCV (RBC) [Entitic vol] 93 fL Normal 80-100 P [facility] Comment on above: Performed By: #### P INR, 68844-9 #### [facility] ([id number]) [address] [place] [address] 82681 #### CBCA, CMP #### [facility] ([id number]) [address] [place] [address] Monocytes (Bld) [#/Vol] 1.0 10*3/uL High 0-0.9 [facility] Comment on above: Performed By: #### P INR, 51605-4 #### [facility] ([id number]) [address] [place] [address] 98213 #### CBCA, CMP #### [facility] ([id number]) [address] [place] [address] Monocytes/100 WBC (Bld) 8.9 % Normal P [facility] Comment on above: Performed By: #### P INR, 51217-1 #### [facility] ([id number]) [address] [place] [address] 52053 #### CBCA, CMP #### [facility] ([id number]) [address] [place] [address] Neutrophils/100 WBC (Bld) 80.5 % Normal [facility] Comment on above: Performed By: #### P INR, 20870-7 #### [facility] ([id number]) [address] [place] [address] 80543 #### CBCA, CMP #### [facility] ([id number]) [address] [place] [address] Platelet mean volume (Bld) [Entitic vol] 8.6 fL Normal 7-12 [facility] Comment on above: Performed By: #### P INR, 27961-7 #### [facility] ([id number]) [address] [place] [address] 41586 #### CBCA, CMP #### [facility] ([id number]) [address] [place] [address] Platelets (Bld) [#/Vol] 275 10*3/uL Normal 150-450 [facility] Comment on above: Performed By: #### P INR, 69027-8 #### [facility] ([id number]) [address] [place] [address] 09208 #### CBCA, CMP #### [facility] ([id number]) [address] [place] [address] RBC COUNT 3.50 X10E12/L Low 4.10-5.70 [facility] Comment on above: Performed By: #### P INR, 04565-1 #### [facility] ([id number]) [address] [place] [address] 45648 #### CBCA, CMP #### [facility] ([id number]) [address] [place] [address] WBC (Bld) [#/Vol] 10.9 10*3/uL Normal 4.0-11.0 [facility] Comment on above: Performed By: #### P INR, 65149-2 #### [facility] ([id number]) [address] [place] [address] 81667 #### CBCA, CMP #### [facility] ([id number]) [address] [place] [address] COMPREHENSIVE METABOLIC PANE Larry 07-05-2024 Albumin [Mass/Vol] 2.6 g/dL Low 3.2-5.3 [facility] Comment on above: Performed By: #### P INR, 05738-4 #### [facility] ([id number]) [address] [place] [address] 40641 #### CBCA, CMP #### [facility] ([id number]) [address] [place] [address] ALP [Catalytic activity/Vol] 71 U/L Normal 39-130 [facility] Comment on above: Performed By: #### P INR, 84972-6 #### [facility] ([id number]) [address] [place] [address] 24994 #### CBCA, CMP #### [facility] ([id number]) [address] [place] [address] ALT [Catalytic activity/Vol] 14 U/L Normal 0-40 [facility] Comment on above: Performed By: #### P INR, 20956-8 #### [facility] ([id number]) [address] [place] [address] 68045 #### CBCA, CMP #### [facility] ([id number]) [address] [place] [address] Anion gap [Moles/Vol] 5 mmol/L Normal 5-15 [facility] Comment on above: Performed By: #### P INR, 47955-6 #### [facility] ([id number]) [address] [place] [address] 57204 #### CBCA, CMP #### [facility] ([id number]) [address] [place] [address] AST [Catalytic activity/Vol] 29 U/L Normal 0-41 [facility] Comment on above: Performed By: #### P INR, 67934-5 #### [facility] ([id number]) [address] [place] [address] 40054 #### CBCA, CMP #### [facility] ([id number]) [address] [place] [address] Bilirubin [Mass/Vol] 1.3 mg/dL High 0.3-1.2 [facility] Comment on above: Performed By: #### P INR, 15923-1 #### [facility] ([id number]) [address] [place] [address] 14649 #### CBCA, CMP #### [facility] ([id number]) [address] [place] [address] Calcium [Mass/Vol] 8.6 mg/dL Normal 8.5-10.5 [facility] Comment on above: Performed By: #### P INR, 01035-8 #### [facility] ([id number]) [address] [place] [address] 14128 #### CBCA, CMP #### [facility] ([id number]) [address] [place] [address] Chloride [Moles/Vol] 105 mmol/L Normal 98-109 [facility] Comment on above: Performed By: #### P INR, 07682-1 #### [facility] ([id number]) [address] [place] [address] 96054 #### CBCA, CMP #### [facility] ([id number]) [address] [place] [address] CO2 [Moles/Vol] 28 mmol/L Normal 22-32 [facility] Comment on above: Performed By: #### P INR, 87058-5 #### [facility] ([id number]) [address] [place] [address] 31341 #### CBCA, CMP #### [facility] ([id number]) [address] [place] [address] Creatinine [Mass/Vol] 1.24 mg/dL High 0.70-1.20 [facility] Comment on above: Result Comment: METH OD TRACEABLE TO IDMS STANDARD Performed By: #### P INR, 26684-7 #### [facility] ([id number]) [address] [place] [address] 92024 #### CBCA, CMP #### [facility] ([id number]) [address] [place] [address] GFR/1.73 sq M.predicted among non-blacks MDRD (S/P/Bld) [Vol rate/Area] 60 mL/min/{1.73_m2} Normal >59 [facility] Comment on above: Result Comment: Reported eGFR is based on the CKD-EPI 2020 equation that does not use a race coefficient. Performed By: #### P INR, 50167-1 #### [facility] ([id number]) [address] [place] [address] 23674 #### CBCA, CMP #### [facility] ([id number]) [address] [place] [address] Glucose [Mass/Vol] 115 mg/dL High 65-99 [facility] Comment on above: Performed By: #### P INR, 84060-5 #### [facility] ([id number]) [address] [place] [address] 88875 #### CBCA, CMP #### [facility] ([id number]) [address] [place] [address] Potassium [Moles/Vol] 4.0 mmol/L Normal 3.5-5.0 [facility] Comment on above: Performed By: #### P INR, 65520-9 #### [facility] ([id number]) [address] [place] [address] 82606 #### CBCA, CMP #### [facility] ([id number]) [address] [place] [address] Protein [Mass/Vol] 6.5 g/dL Normal 6.0-8.0 [facility] Comment on above: Performed By: #### P INR, 22302-4 #### [facility] ([id number]) [address] [place] [address] 67989 #### CBCA, CMP #### [facility] ([id number]) [address] [place] [address] Sodium [Moles/Vol] 138 mmol/L Normal 134-146 [facility] Comment on above: Performed By: #### P INR, 48422-9 #### [facility] ([id number]) [address] [place] [address] 90467 #### CBCA, CMP #### [facility] ([id number]) [address] [place] [address] Urea nitrogen [Mass/Vol] 19 mg/dL Normal 5-27 [facility] Comment on above: Performed By: #### P INR, 23664-0 #### [facility] ([id number]) [address] [place] [address] 08695 #### CBCA, CMP #### [facility] ([id number]) [address] [place] [address] CT ABDOMEN AND PELVIS W CONT on [...] THE CLINICAL SERVICE ON 07/05/2024 6:59 PM Workstation:Respi Finalized by Ashley Joyce on 07/05/2024 7:01 PM Normal [facility] Lactate (P rosanne) [Moles/Vol]o n 07-05-2024 LACTATE W/REFLEX 1.5 mmol/L Normal 0.4-2.0 [facility] Comment on above: Result Comment: Result did not trigger repeat Lactate, re-order if needed. Performed By: #### P INR, 93750-9 #### [facility] ([id number]) [address] [place] [address] 78719 #### CBCA, CMP #### [facility] ([id number]) [address] [place] [address] PROTIME AND INRon 07-05-2024 INR Coag (PPP) [Relative time] 1.9 {INR} High 0.8-1.1 [facility] Comment on above: Performed By: #### P INR, 74017-6 #### [facility] ([id number]) [address] [place] [address], [place] [address] #### CBCA, CMP #### [facility] ([id number]) [address] [place] [address] PT Coag (PPP) [Time] 21.4 s High 9.8-13.2 [facility] Comment on above: Result Comment: NEW REFERENCE RANGE Performed By: #### P INR, 58198-3 #### [facility] ([id number]) [address] [place] [address] 96519 #### CBCA, CMP #### [facility] ([id number]) [address] [place] [address] UA (MICROSCOPIC)on 5 R.B.CELLS >100 High 0-5 [facility] Comment on above: Performed By: #### P INR, 53741-3 #### [facility] ([id number]) [address] [place] [address] 69224 #### CBCA, CMP #### [facility] ([id number]) [address] [place] [address] SQUAMOUS EPITHELIUM 2 /hpf Normal 0-5 [facility] Comment on above: Performed By: #### P INR, 01168-3 #### [facility] ([id number]) [address] [place] [address] 70004 #### CBCA, CMP #### [facility] ([id number]) [address] [place] [address] Urinalysis dipstick W Reflex Microscopic panel (U) Results maybe affected due to High RBC count, interpretwith caution. Normal [facility] Comment on above: Performed By: #### P INR, 01554-4 #### [facility] ([id number]) [address] [place] [address] 52287 #### CBCA, CMP #### [facility] ([id number]) [address] [place] [address] W.B.CELLS 3 /hpf Normal 0-5 [facility] Comment on above: Performed By: #### P INR, 59969-9 #### [facility] ([id number]) [address] [facility] [place] [address] #### CBCA, CMP #### [facility] ([id number]) [address] [place] [address] BASIC METABOLIC PANLon 07-04 Anion gap [Moles/Vol] 6 mmol/L Normal 5-15 [facility] Comment on above: Performed By: #### C BCA, 5643-2, 1797-8, CMP, 3040-3, 01976-3, PINR, [id number] #### [facility] ([id number]) [address], [address] [place] [address] Calcium [Mass/Vol] 8.4 mg/dL Low 8.5-10.5 [facility] Comment on above: Performed By: #### C BCA, 5643-2, 1797-8, CMP, 3040-3, 92615-3, PINR, [id number] #### [facility] ([id number]) [address], [address] [place] [address] Chloride [Moles/Vol] 107 mmol/L Normal 98-109 [facility] Comment on above: Performed By: #### C BCA, 5643-2, 1797-8, CMP, 3040-3, 86737-7, PINR, [id number] #### [facility] ([id number]) [address], [address] [place] [address] CO2 [Moles/Vol] 29 mmol/L Normal 22-32 [facility] Comment on above: Performed By: #### C BCA, 5643-2, 8-8, CMP, 3040-3, 72261-6, PINR, [id number] #### [facility] ([id number]) [address], [address] [place] [address] Creatinine [Mass/Vol] 1.06 mg/dL Normal 0.60-1.30 [facility] Comment on above: Result Comment: METH OD TRACEABLE TO IDMS STANDARD Performed By: #### C BCA, 5643-2, 1797-8, CMP, 3040-3, 24091-3, PINR, [id number] #### [facility] ([id number]) [address], [address] [place] [address] GFR/1.73 sq M.predicted among non-blacks MDRD (S/P/Bld) [Vol rate/Area] 72 mL/min/{1.73_m2} Normal >59 [facility] Comment on above: Result Comment: Reported eGFR is based on the CKD-EPI 2020 equation that does not use a race coefficient. Performed By: #### C BCA, 5643-2, 1797-8, CMP, 3040-3, 63930-1, PINR, [id number] #### [facility] ([id number]) [address], [address] [place] [address] Glucose [Mass/Vol] 93 mg/dL Normal 65-99 [facility] Comment on above: Performed By: #### C BCA, 5643-2, 1797-8, CMP, 3040-3, 25211-5, PINR, 70403-5 #### [facility] ([id number]) [address], [address] [place] [address] Potassium [Moles/Vol] 4.0 mmol/L Normal 3.5-5.0 [facility] Comment on above: Performed By: #### C BCA, 5643-2, 1797-8, CMP, 3040-3, 12428-0, PINR, 98192-1 #### [facility] ([id number]) [address], [address] [place] [address] Sodium [Moles/Vol] 142 mmol/L Normal 134-146 [facility] Comment on above: Performed By: #### C BCA, 5643-2, 1798-8, CMP, 3040-3, 72485-2, PINR, 63869-5 #### [facility] ([id number]) [address], [address] [place] [address] Urea nitrogen [Mass/Vol] 17 mg/dL Normal 5-27 [facility] Comment on above: Performed By: #### C BCA, 5643-2, 1798-8, CMP, 3040-3, 48107-5, PINR, 49704-6 #### [facility] ([id number]) [address] [address] [place] [address] Basic Metabolic Panelon - Anion gap [Moles/Vol] 6 mmol/L 5 - 15 mmol/L [facility] Calcium [Mass/Vol] 8.4 mg/dL Low 8.5 - 10. 5 mg/dL [facility] Chloride [Moles/Vol] 107 mmol/L 98 - 10 9 mmol/L [facility] CO2 [Moles/Vol] 29 mmol/L 22 - 32 mmol/L [facility] Creatinine [Mass/Vol] 1.06 mg/dL 0.60 - 1.30 mg/dL [facility] Comment on above: METHOD TRACEABLE TO IDMS STANDARD eGFR (CKD-EPI)non-race dependent 72 - PINF [facility] Comment on above: Reported eGFR is based on the CKD-EPI 2020 equation that does not use a race coefficient. Glucose [Mass/Vol] 93 mg/dL 65 - 99 mg/dL [facility] Interpretation and review of laboratory results Abnormal [facility] Potassium [Moles/Vol] 4 mmol/L 3.5 - 5.0 mmol/L [facility] Sodium [Moles/Vol] 142 mmol/L 134 - 146 mmol/L [facility] Urea nitrogen [Mass/Vol] 17 mg/dL 5 - 27 mg/dL [facility] CBC AND AUTO DIFFon 07-04- 25 ABSOLUTE BASOPHIL 0.1 X10E9/L Normal 0.0-0.2 [facility] Comment on above: Performed By: #### C BCA, 5643-2, 1797-8, CMP, 3040-3, 72787-0, PINR, 64534-5 #### [facility] ([id number]) [address], [address] [place] [address] ABSOLUTE NEUTROPHIL 4.7 X10E9/L Normal 1.5-6.6 [facility] Comment on above: Performed By: #### C BCA, 5643-2, 1797-8, CMP, 3040-3, 35856-1, PINR, 98173-4 #### [facility] ([id number]) [address], [address] [place] [address] Basophils/100 WBC (Bld) 0.8 % Normal [facility] Comment on above: Performed By: #### C BCA, 5643-2, 1797-8, CMP, 3040-3, 94695-3, PINR, 63913-9 #### [facility] ([id number]) [address], [address] [place] [address] Eosinophils (Bld) [#/Vol] 0.1 10*3/uL Normal 0.0-0.4 [facility] Comment on above: Performed By: #### C BCA, 5643-2, 1797-8, CMP, 3040-3, 32907-0, PINR, 96625-7 #### [facility] ([id number]) [address], [address] [place] [address] Eosinophils/100 WBC (Bld) 2.0 % Normal [facility] Comment on above: Performed By: #### C BCA, 5643-2, 1797-8, CMP, 3040-3, 34917-4, PINR, 10231-5 #### [facility] ([id number]) [address], [address] [place] [address] Erythrocyte distribution width (RBC) [Ratio] 15.0 % Normal 11.5-15.0 [facility] Comment on above: Performed By: #### C BCA, 5643-2, 1797-8, CMP, 3040-3, 43172-9, PINR, 59586-6 #### [facility] ([id number]) [address], [address] [place] [address] Hematocrit (Bld) [Volume fraction] 30.5 % Low 39-49 [facility] Comment on above: Performed By: #### C BCA, 5643-2, 1797-12, CMP, 3040-3, 83145-3, PINR, 80879-9 #### [facility] ([id number]) [address] [address] [place] [address] Hemoglobin (Bld) [Mass/Vol] 10.1 g/dL Low 13.0-17.0 [facility] Comment on above: Performed By: #### C BCA, 5643-2, 1797-12, CMP, 3040-3, 91763-1, PINR, 60010-8 #### [facility] ([id number]) [address] [address] [place] [address] Lymphocytes (Bld) [#/Vol] 0.9 10*3/uL Low 1.0-3.5 [facility] Comment on above: Performed By: #### C BCA, 5643-2, 8, CMP, 3040-3, 99272-7, PINR, 64860-7 #### [facility] ([id number]) [address] [address] [place] [address] Lymphocytes/100 WBC (Bld) 14.6 % Normal [facility] Comment on above: Performed By: #### C BCA, 5643-2, 1798-8, CMP, 3040-3, 19536-8, PINR, 80783-9 #### [facility] ([id number]) [address], [address] [place] [address] MCH (RBC) [Entitic mass] 30.8 pg Normal 27-34 [facility] Comment on above: Performed By: #### C BCA, 5643-2, 8, CMP, 3040-3, 38339-7, PINR, 43322-7 #### [facility] ([id number]) [address], [facility] [address] [place] [address] MCHC (RBC) [Mass/Vol] 33.0 g/dL Normal 32-36 [facility] Comment on above: Performed By: #### C BCA, 5643-2, 1797-12, CMP, 3040-3, 62920-6, PINR, 82140-3 #### [facility] ([id number]) [address], [address] [place] [address] MCV (RBC) [Entitic vol] 94 fL Normal 80-100 [facility] Comment on above: Performed By: #### C BCA, 5643-2, 1797-12, CMP, 3040-3, 72252-6, PINR, 45306-0 #### [facility] ([id number]) [address], [address] [place] [address] Monocytes (Bld) [#/Vol] 0.6 10*3/uL Normal 0-0.9 [facility] Comment on above: Performed By: #### C BCA, 5643-2, 8, CMP, 3040-3, 89580-3, PINR, 22869-1 #### [facility] ([id number]) [address] [address] [place] [address] Monocytes/100 WBC (Bld) 9.1 % Normal [facility] Comment on above: Performed By: #### Kacey BCA, 5643-2, 8-8, CMP, 3040-3, 49288-2, PINR, 57040-2 #### [facility] ([id number]) [address], [address] [place] [address] Neutrophils/100 WBC (Bld) 73.5 % Normal [facility] Comment on above: Performed By: #### C BCA, 5643-2, 8-8, CMP, 3040-3, 05789-3, PINR, 02735-4 #### [facility] ([id number]) [address], [facility] [address] [place] [address] Platelet mean volume (Bld) [Entitic vol] 8.3 fL Normal 7-12 [facility] Comment on above: Performed By: #### C BCA, 5643-2, 1797-8, CMP, 3040-3, 56827-3, PINR, 17311-0 #### [facility] ([id number]) [address] [address] [place] [address] Platelets (Bld) [#/Vol] 228 10*3/uL Normal 150-450 [facility] Comment on above: Performed By: #### C BCA, 5643-2, 1797-8, CMP, 3040-3, 82963-9, PINR, 49359-8 #### [facility] ([id number]) [address], [address] [place] [address] RBC COUNT 3.26 X10E12/L Low 4.10-5.70 [facility] Comment on above: Performed By: #### C BCA, 5643-2, 1797-8, CMP, 3040-3, 08136-9, PINR, 56991-3 #### [facility] ([id number]) [address], [address] [place] [address] WBC (Bld) [#/Vol] 6.4 10*3/uL Normal 4.0-11.0 [facility] Comment on above: Performed By: #### C BCA, 5643-2, 1798-8, CMP, 3040-3, 79440-6, PINR, 41007-5 #### [facility] ([id number]) [address] [facility] [place] [address] CBC auto differentialon 06-16 Basophils (Bld) [#/Vol] 0.1 10*3/uL [facility] Basophils/100 WBC (Bld) 0.8 % P [facility] Eosinophils (Bld) [#/Vol] 0.1 10*3/uL [facility] Eosinophils/100 WBC (Bld) 2 % [facility] Erythrocyte distribution width (RBC) [Ratio] 15 % 11.5 - 15.0 % [facility] Hematocrit (Bld) [Volume fraction] 30.5 % Low 39 - 49 % [facility] Hemoglobin (Bld) [Mass/Vol] 10.1 g/dL Low 13.0 - 17.0 g/dL [facility] Interpretation and review of laboratory results Abnormal [facility] Lymphocytes (Bld) [#/Vol] 0.9 10*3/uL Low [facility] Lymphocytes/100 WBC (Bld) 14.6 % [facility] MCH (RBC) [Entitic mass] 30.8 pg 27 - 34 pg [facility] MCHC (RBC) [Mass/Vol] 33 g/dL 32 - 3 6 g/dL [facility] MCV (RBC) [Entitic vol] 94 fL 80 - 100 fL [facility] Monocytes (Bld) [#/Vol] 0.6 10*3/uL [facility] Monocytes/100 WBC (Bld) 9.1 % [facility] Neutrophils (Bld) [#/Vol] 4.7 10*3/uL [facility] Neutrophils/100 WBC (Bld) 73.5 % [facility] Platelet mean volume (Bld) [Entitic vol] 8.3 fL 7 - 12 fL [facility] Platelets (Bld) [#/Vol] 228 10*3/uL [facility] RBC (Bld) [#/Vol] 3.26 10*6/uL Low [facility] WBC corrected for nucl RBC Auto (Bld) [#/Vol] 6.4 [facility] Glucose Glucometer (BldC) [M ass/Vol]on 07-04-2024 Glucose [Mass/Vol] 100 mg/dL High 65 - 99 mg/dL [facility] Interpretation and review of laboratory results Abnormal [facility] Glucose [Mass/Vol] 100 mg/dL High 65-99 [facility] Glucose [Mass/Vol] 109 mg/dL High 65 - 99 mg/dL [facility] Interpretation and review of laboratory results Abnormal [facility] Glucose [Mass/Vol] 109 mg/dL High 65-99 [facility] BASIC METABOLIC PANLon 07-03 Anion gap [Moles/Vol] 4 mmol/L Low 5-15 [facility] Comment on above: Performed By: #### C BCA, 5643-2, 1797-8, CMP, 3040-3, 39365-5, PINR, 11883-6 #### [facility] ([id number]) [address], [address] [place] [address] Calcium [Mass/Vol] 8.3 mg/dL Low 8.5-10.5 [facility] Comment on above: Performed By: #### C BCA, 5643-2, 1797-8, CMP, 3040-3, 78645-5, PINR, 47388-1 #### [facility] ([id number]) [address] [place] [address] Chloride [Moles/Vol] 109 mmol/L Normal 98-109 [facility] Comment on above: Performed By: #### C BCA, 5643-2, 8-8, CMP, 3040-3, 04444-8, PINR, 06254-8 #### [facility] ([id number]) [address], [address] [place] [address] CO2 [Moles/Vol] 30 mmol/L Normal 22-32 [facility] Comment on above: Performed By: #### C BCA, 5643-2, 1797-8, CMP, 3040-3, 59920-6, PINR, 11074-9 #### [facility] ([id number]) [address], [address] [place] [address] Creatinine [Mass/Vol] 1.05 mg/dL Normal 0.60-1.30 [facility] Comment on above: Result Comment: METH OD TRACEABLE TO IDMS STANDARD Performed By: #### C BCA, 5643-2, 1797-8, CMP, 3040-3, 69236-1, PINR, 42858-4 #### [facility] ([id number]) [address], [address] [address] GFR/1.73 sq M.predicted among non-blacks MDRD (S/P/Bld) [Vol rate/Area] 73 mL/min/{1.73_m2} Normal >59 [facility] Comment on above: Result Comment: Reported eGFR is based on the CKD-EPI 2020 equation that does not use a race coefficient. Performed By: #### C BCA, 5643-2, 1797-8, CMP, 3040-3, 66209-8, PINR, 59923-4 #### [facility] ([id number]) [address], [address] [place] [address] Glucose [Mass/Vol] 116 mg/dL High 65-99 [facility] Comment on above: Performed By: #### C BCA, 5643-2, 1797-8, CMP, 3040-3, 41588-4, PINR, 83998-1 #### [facility] ([id number]) [address], [address] [place] [address] Potassium [Moles/Vol] 4.2 mmol/L Normal 3.5-5.0 [facility] Comment on above: Performed By: #### C BCA, 5643-2, 1798-8, CMP, 3040-3, 18229-5, PINR, 36557-7 #### [facility] ([id number]) [address], [address] [place] [address] Sodium [Moles/Vol] 143 mmol/L Normal 134-146 [facility] Comment on above: Performed By: #### C BCA, 5643-2, 1798-8, CMP, 3040-3, 07416-3, PINR, 13831-0 #### [facility] ([id number]) [address], [address] [place] [address] Urea nitrogen [Mass/Vol] 14 mg/dL Normal 5-27 [facility] Comment on above: Performed By: #### C BCA, 5643-2, 1798-8, CMP, 3040-3, 73008-8, PINR, 83908-1 #### [facility] ([id number]) [address], [address] [place] [address] Basic Metabolic Panelon - Anion gap [Moles/Vol] 4 mmol/L Low 5 - 15 mmol/L [facility] Calcium [Mass/Vol] 8.3 mg/dL Low 8.5 - 10. 5 mg/dL [facility] Chloride [Moles/Vol] 109 mmol/L 98 - 10 9 mmol/L [facility] CO2 [Moles/Vol] 30 mmol/L 22 - 32 mmol/L [facility] Creatinine [Mass/Vol] 1.05 mg/dL 0.60 - 1.30 mg/dL [facility] Comment on above: METHOD TRACEABLE TO IDMS STANDARD eGFR (CKD-EPI)non-race dependent 73 - PINF [facility] Comment on above: Reported eGFR is based on the CKD-EPI 2020 equation that does not use a race coefficient. Glucose [Mass/Vol] 116 mg/dL High 65 - 99 mg/dL [facility] Interpretation and review of laboratory results Abnormal [facility] Potassium [Moles/Vol] 4.2 mmol/L 3.5 - 5.0 mmol/L [facility] Sodium [Moles/Vol] 143 mmol/L 134 - 146 mmol/L [facility] Urea nitrogen [Mass/Vol] 14 mg/dL 5 - 27 mg/dL [facility] CBC AND AUTO DIFFon 07-03-19 25 ABSOLUTE BASOPHIL 0.0 X10E9/L Normal 0.0-0.2 [facility] Comment on above: Performed By: #### C BCA, 5643-2, 1797-8, CMP, 3040-3, 90724-4, PINR, 77170-1 #### [facility] ([id number]) [address], [address] [place] [address] ABSOLUTE NEUTROPHIL 5.7 X10E9/L Normal 1.5-6.6 [facility] Comment on above: Performed By: #### C BCA, 5643-2, 8, CMP, 3040-3, 01435-0, PINR, 42000-9 #### [facility] ([id number]) [address], [address] [place] [address] Basophils/100 WBC (Bld) 0.4 % Normal [facility] Comment on above: Performed By: #### C BCA, 5643-2, 8, CMP, 3040-3, 42717-7, PINR, 79281-6 #### [facility] ([id number]) [address], [address] [place] [address] Eosinophils (Bld) [#/Vol] 0.1 10*3/uL Normal 0.0-0.4 [facility] Comment on above: Performed By: #### C BCA, 5643-2, 1797-8, CMP, 3040-3, 04091-8, PINR, 86565-2 #### [facility] ([id number]) [address], [address] [place] [address] Eosinophils/100 WBC (Bld) 1.8 % Normal [facility] Comment on above: Performed By: #### C BCA, 5643-2, 1797-8, CMP, 3040-3, 12856-7, PINR, 29515-3 #### [facility] ([id number]) [address], [address] [place] [address] Erythrocyte distribution width (RBC) [Ratio] 15.0 % Normal 11.5-15.0 [facility] Comment on above: Performed By: #### C BCA, 5643-2, 1797-8, CMP, 3040-3, 36419-7, PINR, 90811-9 #### [facility] ([id number]) [address], [address] [place] [address] Hematocrit (Bld) [Volume fraction] 31.9 % Low 39-49 [facility] Comment on above: Performed By: #### C BCA, 5643-2, 8, CMP, 3040-3, 83527-2, PINR, 83788-8 #### [facility] ([id number]) [address], [address] [place] [address] Hemoglobin (Bld) [Mass/Vol] 10.6 g/dL Low 13.0-17.0 [facility] Comment on above: Performed By: #### C BCA, 5643-2, 8, CMP, 3040-3, 93849-2, PINR, 97228-9 #### [facility] ([id number]) [address] [address] [place] [address] Lymphocytes (Bld) [#/Vol] 0.6 10*3/uL Low 1.0-3.5 [facility] Comment on above: Performed By: #### C BCA, 5643-2, 1797-8, CMP, 3040-3, 34682-7, PINR, 02092-0 #### [facility] ([id number]) [address] [address] [place] [address] Lymphocytes/100 WBC (Bld) 8.5 % Normal [facility] Comment on above: Performed By: #### C BCA, 5643-2, 1797-8, CMP, 3040-3, 83738-1, PINR, 62443-8 #### [facility] ([id number]) [address] [address] [place] [address] MCH (RBC) [Entitic mass] 31.1 pg Normal 27-34 [facility] Comment on above: Performed By: #### C BCA, 5643-2, 1797-, CMP, 3040-3, 14752-0, PINR, 19718-7 #### [facility] ([id number]) [address] [address] [place] [address] MCHC (RBC) [Mass/Vol] 33.2 g/dL Normal 32-36 [facility] Comment on above: Performed By: #### C BCA, 5643-2, 8, CMP, 3040-3, 02997-3, PINR, 08179-3 #### [facility] ([id number]) [address] [address] [place] [address] MCV (RBC) [Entitic vol] 94 fL Normal 80-100 [facility] Comment on above: Performed By: #### C BCA, 5643-2, 8, CMP, 3040-3, 47088-6, PINR, 97424-4 #### [facility] ([id number]) [address] [address] [place] [address] Monocytes (Bld) [#/Vol] 0.6 10*3/uL Normal 0-0.9 [facility] Comment on above: Performed By: #### C BCA, 5643-2, 1797-8, CMP, 3040-3, 20230-4, PINR, 36550-3 #### [facility] ([id number]) [address], [address] [place] [address] Monocytes/100 WBC (Bld) 8.1 % Normal [facility] Comment on above: Performed By: #### C BCA, 5643-2, 8-8, CMP, 3040-3, 95787-4, PINR, 68158-3 #### [facility] ([id number]) [address], [address] [place] [address] Neutrophils/100 WBC (Bld) 81.2 % Normal [facility] Comment on above: Performed By: #### C BCA, 5643-2, 1797-8, CMP, 3040-3, 94516-1, PINR, 93615-4 #### [facility] ([id number]) [address], [facility] [address] [place] [address] Platelet mean volume (Bld) [Entitic vol] 8.4 fL Normal 7-12 [facility] Comment on above: Performed By: #### C BCA, 5643-2, 1797-8, CMP, 3040-3, 47067-6, PINR, 69909-1 #### [facility] ([id number]) [address], [facility] [address] [place] [address] Platelets (Bld) [#/Vol] 216 10*3/uL Normal 150-450 [facility] Comment on above: Performed By: #### C BCA, 5643-2, 1797-8, CMP, 3040-3, 24904-9, PINR, 01347-0 #### [facility] ([id number]) [address], [address] [place] [address] RBC COUNT 3.40 X10E12/L Low 4.10-5.70 [facility] Comment on above: Performed By: #### C BCA, 5643-2, 1797-8, CMP, 3040-3, 93122-4, PINR, 63352-8 #### [facility] ([id number]) [address] [place] [address] WBC (Bld) [#/Vol] 7.0 10*3/uL Normal 4.0-11.0 [facility] Comment on above: Performed By: #### C BCA, 5643-2, 1798-8, CMP, 3040-3, 28075-4, PINR, 29138-2 #### [facility] ([id number]) [address], [address] [place] [address] CBC auto differentialon 06-15 Basophils (Bld) [#/Vol] 0 10*3/uL [facility] Basophils/100 WBC (Bld) 0.4 % [facility] Eosinophils (Bld) [#/Vol] 0.1 10*3/uL [facility] Eosinophils/100 WBC (Bld) 1.8 % [facility] Erythrocyte distribution width (RBC) [Ratio] 15 % 11.5 - 15.0 % [facility] Hematocrit (Bld) [Volume fraction] 31.9 % Low 39 - 49 % [facility] Hemoglobin (Bld) [Mass/Vol] 10.6 g/dL Low 13.0 - 17.0 g/dL [facility] Interpretation and review of laboratory results Abnormal [facility] Lymphocytes (Bld) [#/Vol] 0.6 10*3/uL Low [facility] Lymphocytes/100 WBC (Bld) 8.5 % [facility] MCH (RBC) [Entitic mass] 31.1 pg 27 - 34 pg [facility] MCHC (RBC) [Mass/Vol] 33.2 g/dL 32 - 3 6 g/dL [facility] MCV (RBC) [Entitic vol] 94 fL 80 - 100 fL [facility] Monocytes (Bld) [#/Vol] 0.6 10*3/uL [facility] Monocytes/100 WBC (Bld) 8.1 % [facility] Neutrophils (Bld) [#/Vol] 5.7 10*3/uL [facility] Neutrophils/100 WBC (Bld) 81.2 % [facility] Platelet mean volume (Bld) [Entitic vol] 8.4 fL 7 - 12 fL [facility] Platelets (Bld) [#/Vol] 216 10*3/uL [facility] RBC (Bld) [#/Vol] 3.4 10*6/uL Low [facility] WBC corrected for nucl RBC Auto (Bld) [#/Vol] 7 [facility] Glucose Glucometer (BldC) [M ass/Vol]on 07-03-2024 Glucose [Mass/Vol] 90 mg/dL 65 - 99 mg/dL [facility] Glucose [Mass/Vol] 90 mg/dL Normal 65-99 [facility] Glucose [Mass/Vol] 101 mg/dL High 65 - 99 mg/dL [facility] Interpretation and review of laboratory results Abnormal [facility] Glucose [Mass/Vol] 101 mg/dL High 65-99 [facility] Glucose [Mass/Vol] 129 mg/dL High 65 - 99 mg/dL [facility] Interpretation and review of laboratory results Abnormal [facility] Glucose [Mass/Vol] 129 mg/dL High 65-99 [facility] Glucose [Mass/Vol] 129 mg/dL High 65 - 99 mg/dL [facility] Interpretation and review of laboratory results Abnormal [facility] Glucose [Mass/Vol] 129 mg/dL High 65-99 [facility] Glucose [Mass/Vol] 116 mg/dL High 65 - 99 mg/dL [facility] Interpretation and review of laboratory results Abnormal [facility] Glucose [Mass/Vol] 116 mg/dL High 65-99 [facility] Glucose [Mass/Vol] 125 mg/dL High 65 - 99 mg/dL [facility] Interpretation and review of laboratory results Abnormal [facility] Glucose [Mass/Vol] 125 mg/dL High 65-99 [facility] HGBon 07-03-2024 Hematocrit (Bld) [Volume fraction] 33.4 % Low 39-49 [facility] Comment on above: Performed By: #### C BCA, 5643-2, 1798-8, CMP, 3040-3, 48746-9, PINR, 35690-4 #### [facility] ([id number]) [address] [place] [address] Hemoglobin (Bld) [Mass/Vol] 11.0 g/dL Low 13.0-17.0 [facility] Comment on above: Performed By: #### C BCA, 5643-2, 1798-8, CMP, 3040-3, 82286-3, PINR, 27535-3 #### [facility] ([id number]) [address] [place] [address] Hemoglobin and hematocrit, b loodon 07-03-2024 Hemoglobin (Bld) [Mass/Vol] 11 g/dL Low 13.0 - 17.0 g/dL [facility] Interpretation and review of laboratory results [...] - bilateralOrdered By: Brian Valverde on 07-03-2024 [facility] Work Phone: BASIC METABOLIC PANLon 07-02 Anion gap [Moles/Vol] 8 mmol/L Normal 5-15 [facility] Comment on above: Performed By: #### C BCA, 5643-2, 1797-8, CMP, 3040-3, 73945-7, PINR, [id number] #### [facility] ([id number]) [address], [address] [place] [address] Calcium [Mass/Vol] 8.2 mg/dL Low 8.5-10.5 [facility] Comment on above: Performed By: #### C BCA, 5643-2, 1797-8, CMP, 3040-3, 48308-6, PINR, [id number] #### [facility] ([id number]) [address], [address] [place] [address] Chloride [Moles/Vol] 108 mmol/L Normal 98-109 [facility] Comment on above: Performed By: #### C BCA, 5643-2, 1797-8, CMP, 3040-3, 00922-7, PINR, [id number] #### [facility] ([id number]) [address], [address] [place] [address] CO2 [Moles/Vol] 26 mmol/L Normal 22-32 [facility] Comment on above: Performed By: #### C BCA, 5643-2, 1797-8, CMP, 3040-3, 84059-6, PINR, [id number] #### [facility] ([id number]) [address], [address] [place] [address] Creatinine [Mass/Vol] 1.15 mg/dL Normal 0.60-1.30 [facility] Comment on above: Result Comment: METH OD TRACEABLE TO IDMS STANDARD Performed By: #### C BCA, 5643-2, 1797-8, CMP, 3040-3, 37095-2, PINR, [id number] #### [facility] ([id number]) [address], [address] [address] GFR/1.73 sq M.predicted among non-blacks MDRD (S/P/Bld) [Vol rate/Area] 65 mL/min/{1.73_m2} Normal >59 [facility] Comment on above: Result Comment: Reported eGFR is based on the CKD-EPI 2020 equation that does not use a race coefficient. Performed By: #### C BCA, 5643-2, 1797-8, CMP, 3040-3, 12670-5, PINR, 24255-6 #### [facility] ([id number]) [address], [facility] [address] [place] [address] Glucose [Mass/Vol] 93 mg/dL Normal 65-99 [facility] Comment on above: Performed By: #### C BCA, 5643-2, 1797-8, CMP, 3040-3, 19092-6, PINR, 36781-3 #### [facility] ([id number]) [address], [address] [address] Potassium [Moles/Vol] 4.1 mmol/L Normal 3.5-5.0 [facility] Comment on above: Performed By: #### C BCA, 5643-2, 1797-8, CMP, 3040-3, 49291-1, PINR, 73464-5 #### [facility] ([id number]) [address], [address] [place] [address] Sodium [Moles/Vol] 142 mmol/L Normal 134-146 [facility] Comment on above: Performed By: #### C BCA, 5643-2, 1797-8, CMP, 3040-3, 59353-5, PINR, 58457-7 #### [facility] ([id number]) [address], [address] [place] [address] Urea nitrogen [Mass/Vol] 13 mg/dL Normal 5-27 [facility] Comment on above: Performed By: #### C BCA, 5643-2, 8-8, CMP, 3040-3, 58442-0, PINR, 32329-7 #### [facility] ([id number]) [address] [facility] [place] [address] Basic Metabolic Panelon 06-15 Anion gap [Moles/Vol] 8 mmol/L 5 - 15 mmol/L [facility] Calcium [Mass/Vol] 8.2 mg/dL Low 8.5 - 10. 5 mg/dL [facility] Chloride [Moles/Vol] 108 mmol/L 98 - 10 9 mmol/L [facility] CO2 [Moles/Vol] 26 mmol/L 22 - 32 mmol/L [facility] Creatinine [Mass/Vol] 1.15 mg/dL 0.60 - 1.30 mg/dL [facility] Comment on above: METHOD TRACEABLE TO IDWA STANDARD eGFR (CKD-EPI)non-race dependent 65 - PINF [facility] Comment on above: Reported eGFR is based on the CKD-EPI 2020 equation that does not use a race coefficient. Glucose [Mass/Vol] 93 mg/dL 65 - 99 mg/dL [facility] Interpretation and review of laboratory results Abnormal [facility] Potassium [Moles/Vol] 4.1 mmol/L 3.5 - 5.0 mmol/L [facility] Sodium [Moles/Vol] 142 mmol/L 134 - 146 mmol/L [facility] Urea nitrogen [Mass/Vol] 13 mg/dL 5 - 27 mg/dL [facility] CBC AND AUTO DIFFon 07-02-19 25 ABSOLUTE BASOPHIL 0.0 X10E9/L Normal 0.0-0.2 [facility] Comment on above: Performed By: #### C BCA, 5643-2, 1798-8, CMP, 3040-3, 34741-0, PINR, 20845-9 #### [facility] ([id number]) [address], [address] [place] [address] ABSOLUTE NEUTROPHIL 6.1 X10E9/L Normal 1.5-6.6 [facility] Comment on above: Performed By: #### C BCA, 5643-2, 8, CMP, 3040-3, 97878-5, PINR, 74746-5 #### [facility] ([id number]) [address], [address] [place] [address] Basophils/100 WBC (Bld) 0.3 % Normal [facility] Comment on above: Performed By: #### C BCA, 5643-2, 1797-12, CMP, 3040-3, 08059-6, PINR, 90393-3 #### [facility] ([id number]) [address], [address] [address] Eosinophils (Bld) [#/Vol] 0.1 10*3/uL Normal 0.0-0.4 [facility] Comment on above: Performed By: #### C BCA, 5643-2, 1797-12, CMP, 3040-3, 94423-0, PINR, 15184-2 #### [facility] ([id number]) [address] [address] Eosinophils/100 WBC (Bld) 1.5 % Normal [facility] Comment on above: Performed By: #### C BCA, 5643-2, 8, CMP, 3040-3, 03621-8, PINR, 85592-2 #### [facility] ([id number]) [address] [address] [place] [address] Erythrocyte distribution width (RBC) [Ratio] 15.5 % High 11.5-15.0 [facility] Comment on above: Performed By: #### C BCA, 5643-2, 8, CMP, 3040-3, 83908-3, PINR, 39159-2 #### [facility] ([id number]) [address], [address] [place] [address] Hematocrit (Bld) [Volume fraction] 31.2 % Low 39-49 [facility] Comment on above: Performed By: #### C BCA, 5643-2, 1797-8, CMP, 3040-3, 66487-4, PINR, 82925-0 #### [facility] ([id number]) [address], [address] [place] [address] Hemoglobin (Bld) [Mass/Vol] 10.7 g/dL Low 13.0-17.0 [facility] Comment on above: Performed By: #### C BCA, 5643-2, 1797-12, CMP, 3040-3, 32591-1, PINR, 06028-9 #### [facility] ([id number]) [address], [address] [place] [address] Lymphocytes (Bld) [#/Vol] 0.6 10*3/uL Low 1.0-3.5 [facility] Comment on above: Performed By: #### C BCA, 5643-2, 1797-12, CMP, 3040-3, 79248-4, PINR, 50547-0 #### [facility] ([id number]) [address], [address] [place] [address] Lymphocytes/100 WBC (Bld) 8.9 % Normal [facility] Comment on above: Performed By: #### C BCA, 5643-2, 8, CMP, 3040-3, 08586-2, PINR, 68192-9 #### [facility] ([id number]) [address], [address] [place] [address] MCH (RBC) [Entitic mass] 31.8 pg Normal 27-34 [facility] Comment on above: Performed By: #### C BCA, 5643-2, 1797-8, CMP, 3040-3, 62559-9, PINR, 56137-4 #### [facility] ([id number]) [address], [address] [place] [address] MCHC (RBC) [Mass/Vol] 34.3 g/dL Normal 32-36 [facility] Comment on above: Performed By: #### C BCA, 5643-2, 1797-8, CMP, 3040-3, 49062-2, PINR, 26986-3 #### [facility] ([id number]) [address], [address] [place] [address] MCV (RBC) [Entitic vol] 93 fL Normal 80-100 [facility] Comment on above: Performed By: #### C BCA, 5643-2, 1797-8, CMP, 3040-3, 27793-4, PINR, 70292-6 #### [facility] ([id number]) [address], [address] [place] [address] Monocytes (Bld) [#/Vol] 0.4 10*3/uL Normal 0-0.9 [facility] Comment on above: Performed By: #### C BCA, 5643-2, 1797-8, CMP, 3040-3, 85629-6, PINR, 05772-7 #### [facility] ([id number]) [address], [address] [place] [address] Monocytes/100 WBC (Bld) 5.9 % Normal [facility] Comment on above: Performed By: #### C BCA, 5643-2, 1797-8, CMP, 3040-3, 14599-0, PINR, 10674-8 #### [facility] ([id number]) [address], [address] [place] [address] Neutrophils/100 WBC (Bld) 83.4 % Normal [facility] Comment on above: Performed By: #### C BCA, 5643-2, 1797-8, CMP, 3040-3, 79786-4, PINR, 83952-3 #### [facility] ([id number]) [address] [address] Platelet mean volume (Bld) [Entitic vol] 8.5 fL Normal 7-12 [facility] Comment on above: Performed By: #### C BCA, 5643-2, 1797-8, CMP, 3040-3, 16105-5, PINR, 40846-3 #### [facility] ([id number]) [address] [address] Platelets (Bld) [#/Vol] 228 10*3/uL Normal 150-450 [facility] Comment on above: Performed By: #### C BCA, 5643-2, 1797-8, CMP, 3040-3, 81529-5, PINR, 24718-3 #### [facility] ([id number]) [address] [address] RBC COUNT 3.36 X10E12/L Low 4.10-5.70 [facility] Comment on above: Performed By: #### C BCA, 5643-2, 1797-8, CMP, 3040-3, 24269-9, PINR, 08957-2 #### [facility] ([id number]) [address] [address] WBC (Bld) [#/Vol] 7.3 10*3/uL Normal 4.0-11.0 [facility] Comment on above: Performed By: #### C BCA, 5643-2, 1797-8, CMP, 3040-3, 83011-1, PINR, 65044-7 #### [facility] ([id number]) [address] [address] CBC auto differentialon 06-15 Basophils (Bld) [#/Vol] 0 10*3/uL [facility] Basophils/100 WBC (Bld) 0.3 % [facility] Eosinophils (Bld) [#/Vol] 0.1 10*3/uL [facility] Eosinophils/100 WBC (Bld) 1.5 % [facility] Erythrocyte distribution width (RBC) [Ratio] 15.5 % High 11.5 - 15.0 % [facility] Hematocrit (Bld) [Volume fraction] 31.2 % Low 39 - 49 % [facility] Hemoglobin (Bld) [Mass/Vol] 10.7 g/dL Low 13.0 - 17.0 g/dL [facility] Interpretation and review of laboratory results Abnormal [facility] Lymphocytes (Bld) [#/Vol] 0.6 10*3/uL Low [facility] Lymphocytes/100 WBC (Bld) 8.9 % [facility] MCH (RBC) [Entitic mass] 31.8 pg 27 - 34 pg [facility] MCHC (RBC) [Mass/Vol] 34.3 g/dL 32 - 3 6 g/dL [facility] MCV (RBC) [Entitic vol] 93 fL 80 - 100 fL [facility] Monocytes (Bld) [#/Vol] 0.4 10*3/uL [facility] Monocytes/100 WBC (Bld) 5.9 % [facility] Neutrophils (Bld) [#/Vol] 6.1 10*3/uL [facility] Neutrophils/100 WBC (Bld) 83.4 % [facility] Platelet mean volume (Bld) [Entitic vol] 8.5 fL 7 - 12 fL [facility] Platelets (Bld) [#/Vol] 228 10*3/uL [facility] RBC (Bld) [#/Vol] 3.36 10*6/uL Low [facility] WBC corrected for nucl RBC Auto (Bld) [#/Vol] 7.3 [facility] Glucose Glucometer (BldC) [M ass/Vol]on 07-02-2024 Glucose [Mass/Vol] 103 mg/dL High 65 - 99 mg/dL [facility] Interpretation and review of laboratory results Abnormal [facility] Glucose [Mass/Vol] 103 mg/dL High 65-99 [facility] Glucose [Mass/Vol] 144 mg/dL High 65 - 99 mg/dL [facility] Interpretation and review of laboratory results Abnormal [facility] Glucose [Mass/Vol] 144 mg/dL High 65-99 [facility] Glucose [Mass/Vol] 158 mg/dL High 65 - 99 mg/dL [facility] Interpretation and review of laboratory results Abnormal [facility] Glucose [Mass/Vol] 158 mg/dL High 65-99 [facility] Glucose [Mass/Vol] 87 mg/dL 65 - 99 mg/dL [facility] Glucose [Mass/Vol] 87 mg/dL Normal 65-99 [facility] Glucose [Mass/Vol] 90 mg/dL 65 - 99 mg/dL [facility] Glucose [Mass/Vol] 90 mg/dL Normal 65-99 [facility] Hematocrit (Bld) [Volume fraction] 34.3 % Low 39-49 [facility] Comment on above: Performed By: #### C HERNANDEZ, 5643-2, 1798-8, CMP, 3040-3, 92465-0, PINR, 60203-5 #### [facility] ([id number]) [address], [address] [place] [address] Hemoglobin (Bld) [Mass/Vol] 11.4 g/dL Low 13.0-17.0 [facility] Comment on above: Performed By: #### C HERNANDEZ, 5643-2, 1798-8, CMP, 3040-3, 64217-5, PINR, 36891-5 #### [facility] ([id number]) [address] [place] [address] Hemoglobin and hematocrit, b loodon 07-02-2024 Hematocrit (Bld) [Volume fraction] 34.3 % Low 39 - 49 % [facility] Hemoglobin (Bld) [Mass/Vol] 11.4 g/dL Low 13.0 - 17.0 g/dL [facility] Interpretation and review of laboratory results Abnormal [facility] US.doppler Lower extremity v ein - bilateralon 07-02-2024 Radiology Study observation (narrative) [facility] BASIC METABOLIC PANLon 07-01 Anion gap [Moles/Vol] 5 mmol/L Normal 5-15 [facility] Comment on above: Performed By: #### C BCA, 5643-2, 1798-8, CMP, 3040-3, 28000-1, PINR, 17653-2 #### [facility] ([id number]) [address], [address] [place] [address] Calcium [Mass/Vol] 7.9 mg/dL Low 8.5-10.5 [facility] Comment on above: Performed By: #### C BCA, 5643-2, 8-8, CMP, 3040-3, 76634-7, PINR, 36442-2 #### [facility] ([id number]) [address], [address] [place] [address] Chloride [Moles/Vol] 111 mmol/L High 98-109 [facility] Comment on above: Performed By: #### C BCA, 5643-2, 8-8, CMP, 3040-3, 42143-0, PINR, 13828-6 #### [facility] ([id number]) [address] [place] [address] CO2 [Moles/Vol] 25 mmol/L Normal 22-32 [facility] Comment on above: Performed By: #### C BCA, 5643-2, 1798-8, CMP, 3040-3, 67866-5, PINR, 05262-5 #### [facility] ([id number]) [address] [place] [address] Creatinine [Mass/Vol] 1.24 mg/dL Normal 0.60-1.30 [facility] Comment on above: Result Comment: METH OD TRACEABLE TO IDMS STANDARD Performed By: #### C BCA, 5643-2, 1797-8, CMP, 3040-3, 17571-7, PINR, 19180-8 #### [facility] ([id number]) [address], [address] [place] [address] GFR/1.73 sq M.predicted among non-blacks MDRD (S/P/Bld) [Vol rate/Area] 60 mL/min/{1.73_m2} Normal >59 [facility] Comment on above: Result Comment: Reported eGFR is based on the CKD-EPI 2020 equation that does not use a race coefficient. Performed By: #### C BCA, 5643-2, 1797-8, CMP, 3040-3, 74976-8, PINR, 96605-5 #### [facility] ([id number]) [address], [address] [place] [address] Glucose [Mass/Vol] 103 mg/dL High 65-99 [facility] Comment on above: Performed By: #### C BCA, 5643-2, 1797-8, CMP, 3040-3, 91268-9, PINR, 86151-1 #### [facility] ([id number]) [address], [address] [place] [address] Potassium [Moles/Vol] 3.7 mmol/L Normal 3.5-5.0 [facility] Comment on above: Performed By: #### C BCA, 5643-2, 1797-8, CMP, 3040-3, 37144-0, PINR, 63988-6 #### [facility] ([id number]) [address], [address] [place] [address] Sodium [Moles/Vol] 141 mmol/L Normal 134-146 [facility] Comment on above: Performed By: #### C BCA, 5643-2, 1798-8, CMP, 3040-3, 74754-0, PINR, 28950-8 #### [facility] ([id number]) [address], [address] [place] [address] Urea nitrogen [Mass/Vol] 16 mg/dL Normal 5-27 [facility] Comment on above: Performed By: #### C BCA, 5643-2, 1798-8, CMP, 3040-3, 47310-7, PINR, 34520-1 #### [facility] ([id number]) [address] [place] [address] Basic Metabolic Panelon 06-15 Anion gap [Moles/Vol] 5 mmol/L 5 - 15 mmol/L [facility] Calcium [Mass/Vol] 7.9 mg/dL Low 8.5 - 10. 5 mg/dL [facility] Chloride [Moles/Vol] 111 mmol/L High 98 - 10 9 mmol/L [facility] CO2 [Moles/Vol] 25 mmol/L 22 - 32 mmol/L [facility] Creatinine [Mass/Vol] 1.24 mg/dL 0.60 - 1.30 mg/dL [facility] Comment on above: METHOD TRACEABLE TO IDWA STANDARD eGFR (CKD-EPI)non-race dependent 60 - PINF [facility] Comment on above: Reported eGFR is based on the CKD-EPI 2020 equation that does not use a race coefficient. Glucose [Mass/Vol] 103 mg/dL High 65 - 99 mg/dL [facility] Interpretation and review of laboratory results Abnormal [facility] Potassium [Moles/Vol] 3.7 mmol/L 3.5 - 5.0 mmol/L [facility] Sodium [Moles/Vol] 141 mmol/L 134 - 146 mmol/L [facility] Urea nitrogen [Mass/Vol] 16 mg/dL 5 - 27 mg/dL [facility] CBC AND AUTO DIFFon 07-01-19 25 ABSOLUTE BASOPHIL 0.0 X10E9/L Normal 0.0-0.2 [facility] Comment on above: Performed By: #### C BCA, 5643-2, 1797-8, CMP, 3040-3, 34854-2, PINR, 27076-9 #### [facility] ([id number]) [address], [address] [place] [address] ABSOLUTE NEUTROPHIL 8.1 X10E9/L High 1.5-6.6 [facility] Comment on above: Performed By: #### C BCA, 5643-2, 1797-8, CMP, 3040-3, 01997-3, PINR, 06424-7 #### [facility] ([id number]) [address], [address] [place] [address] Basophils/100 WBC (Bld) 0.4 % Normal [facility] Comment on above: Performed By: #### C BCA, 5643-2, 1797-8, CMP, 3040-3, 13341-2, PINR, 24035-0 #### [facility] ([id number]) [address], [address] [place] [address] Eosinophils (Bld) [#/Vol] 0.1 10*3/uL Normal 0.0-0.4 [facility] Comment on above: Performed By: #### C BCA, 5643-2, 1797-8, CMP, 3040-3, 57454-2, PINR, 72253-4 #### [facility] ([id number]) [address], [address] [place] [address] Eosinophils/100 WBC (Bld) 1.5 % Normal [facility] Comment on above: Performed By: #### C BCA, 5643-2, 1797-8, CMP, 3040-3, 31505-1, PINR, 23670-5 #### [facility] ([id number]) [address], [address] [place] [address] Erythrocyte distribution width (RBC) [Ratio] 15.7 % High 11.5-15.0 [facility] Comment on above: Performed By: #### C BCA, 5643-2, 1797-8, CMP, 3040-3, 11811-1, PINR, 60536-1 #### [facility] ([id number]) [address], [address] [place] [address] Hematocrit (Bld) [Volume fraction] 29.9 % Low 39-49 [facility] Comment on above: Performed By: #### C BCA, 5643-2, 1797-8, CMP, 3040-3, 76315-5, PINR, 69412-4 #### [facility] ([id number]) [address], [address] [place] [address] Hemoglobin (Bld) [Mass/Vol] 10.2 g/dL Low 13.0-17.0 [facility] Comment on above: Performed By: #### C BCA, 5643-2, 8, CMP, 3040-3, 99925-7, PINR, 12357-6 #### [facility] ([id number]) [address] [address] [place] [address] Lymphocytes (Bld) [#/Vol] 0.7 10*3/uL Low 1.0-3.5 [facility] Comment on above: Performed By: #### C BCA, 5643-2, 8, CMP, 3040-3, 71596-8, PINR, 92517-6 #### [facility] ([id number]) [address] [address] [place] [address] Lymphocytes/100 WBC (Bld) 6.8 % Normal [facility] Comment on above: Performed By: #### C BCA, 5643-2, 1797-8, CMP, 3040-3, 38793-1, PINR, 36285-4 #### [facility] ([id number]) [address], [address] [place] [address] MCH (RBC) [Entitic mass] 31.3 pg Normal 27-34 [facility] Comment on above: Performed By: #### C BCA, 5643-2, 1797-8, CMP, 3040-3, 83715-2, PINR, 76114-6 #### [facility] ([id number]) [address], [address] [place] [address] MCHC (RBC) [Mass/Vol] 34.2 g/dL Normal 32-36 [facility] Comment on above: Performed By: #### C BCA, 5643-2, 8, CMP, 3040-3, 39367-6, PINR, 51338-7 #### [facility] ([id number]) [address], [facility] [address] [place] [address] MCV (RBC) [Entitic vol] 92 fL Normal 80-100 [facility] Comment on above: Performed By: #### C BCA, 5643-2, 1797-8, CMP, 3040-3, 32558-9, PINR, 04616-5 #### [facility] ([id number]) [address], [address] [address] Monocytes (Bld) [#/Vol] 0.6 10*3/uL Normal 0-0.9 [facility] Comment on above: Performed By: #### C BCA, 5643-2, 8, CMP, 3040-3, 20779-6, PINR, 67616-4 #### [facility] ([id number]) [address] [address] [place] [address] Monocytes/100 WBC (Bld) 6.3 % Normal [facility] Comment on above: Performed By: #### C BCA, 5643-2, 1797-8, CMP, 3040-3, 77222-4, PINR, 70199-7 #### [facility] ([id number]) [address] [address] [place] [address] Neutrophils/100 WBC (Bld) 85.0 % Normal [facility] Comment on above: Performed By: #### C BCA, 5643-2, 1797-8, CMP, 3040-3, 54621-5, PINR, 44138-2 #### [facility] ([id number]) [address], [facility] [address] [place] [address] Platelet mean volume (Bld) [Entitic vol] 8.6 fL Normal 7-12 [facility] Comment on above: Performed By: #### C BCA, 5643-2, 1797-8, CMP, 3040-3, 13058-0, PINR, 24417-9 #### [facility] ([id number]) [address] [address] Platelets (Bld) [#/Vol] 235 10*3/uL Normal 150-450 [facility] Comment on above: Performed By: #### C BCA, 5643-2, 1797-8, CMP, 3040-3, 95983-6, PINR, 46351-8 #### [facility] ([id number]) [address] [address] RBC COUNT 3.27 X10E12/L Low 4.10-5.70 [facility] Comment on above: Performed By: #### C BCA, 5643-2, 1797-8, CMP, 3040-3, 67758-7, PINR, 36586-7 #### [facility] ([id number]) [address] [address] [place] [address] WBC (Bld) [#/Vol] 9.5 10*3/uL Normal 4.0-11.0 [facility] Comment on above: Performed By: #### C BCA, 5643-2, 1797-8, CMP, 3040-3, 48006-8, PINR, 90949-4 #### [facility] ([id number]) [address] [facility] [facility] [place] [address] CBC auto differentialon 06-15 Basophils (Bld) [#/Vol] [...] 07-01-2024 IONIZED CALCIUM 4.8 mg/dL Normal 4.5-5.3 [facility] Comment on above: Performed By: #### C BCA, 5643-2, 1798-8, CMP, 3040-3, 40012-7, PINR, 88089-6 #### [facility] ([id number]) [address] [place] [address], [address] [place] [address] Glucose Glucometer (BldC) [M ass/Vol]on 07-01-2024 Glucose [Mass/Vol] 106 mg/dL High 65 - 99 mg/dL [facility] Interpretation and review of laboratory results Abnormal [facility] Glucose [Mass/Vol] 106 mg/dL High 65-99 [facility] Glucose [Mass/Vol] 133 mg/dL High 65 - 99 mg/dL [facility] Interpretation and review of laboratory results Abnormal [facility] Glucose [Mass/Vol] 133 mg/dL High 65-99 [facility] Glucose [Mass/Vol] 96 mg/dL 65 - 99 mg/dL [facility] Glucose [Mass/Vol] 96 mg/dL Normal 65-99 [facility] Glucose [Mass/Vol] 118 mg/dL High 65 - 99 mg/dL [facility] Interpretation and review of laboratory results Abnormal [facility] Glucose [Mass/Vol] 118 mg/dL High 65-99 [facility] Glucose [Mass/Vol] 92 mg/dL 65 - 99 mg/dL [facility] Glucose [Mass/Vol] 92 mg/dL Normal 65-99 [facility] Glucose [Mass/Vol] 90 mg/dL 65 - 99 mg/dL [facility] Glucose [Mass/Vol] 90 mg/dL Normal 65-99 [facility] HGBon 07-01-2024 Hematocrit (Bld) [Volume fraction] 31.8 % Low 39-49 [facility] Comment on above: Performed By: #### C BCA, 5643-2, 1798-8, CMP, 3040-3, 74919-1, PINR, 53567-8 #### [facility] ([id number]) [address], [address] [place] [address] Hemoglobin (Bld) [Mass/Vol] 10.6 g/dL Low 13.0-17.0 [facility] Comment on above: Performed By: #### C BCA, 5643-2, 1797-8, CMP, 3040-3, 75695-9, PINR, 91784-4 #### [facility] ([id number]) [address], [address] [place] [address] Hemoglobin and hematocrit, b loodon 07-01-2024 Hematocrit (Bld) [Volume fraction] 31.8 % Low 39 - 49 % [facility] Hemoglobin (Bld) [Mass/Vol] 10.6 g/dL Low 13.0 - 17.0 g/dL [facility] Interpretation and review of laboratory results Abnormal [facility] Ionized calciumon 07-01-2024 Calcium.ionized (Bld) [Mass/Vol] 4.8 mg/dL 4.5 - 5.3 mg/dL [facility] Ionized magnesiumon 07-01-19 Magnesium Ionized ISE (Bld) [Moles/Vol] 0.55 mmol/L 0.45 - 0.74 mmol/L [facility] Comment on above: NEW REFERENCE RANGE Magnesium Ionized ISE (Bld) [Moles/Vol]on 07-01-2024 Magnesium [Moles/Vol] 0.55 mmol/L Normal 0.45-0.74 [facility] Comment on above: Result Comment: NEW REFERENCE RANGE Performed By: #### C BCA, 5643-2, 8-8, CMP, 3040-3, 80388-1, PINR, [id number] #### [facility] ([id number]) [address], [address] [place] [address] No Panel Informationon 07-01 [facility] PHOSPHORUSon 07-01-2024 Phosphate [Mass/Vol] 2.4 mg/dL Normal 2.4-4.9 [facility] Comment on above: Performed By: #### C BCA, 5643-2, 1798-8, CMP, 3040-3, 08238-8, PINR, 12798-2 #### [facility] ([id number]) [address], [address] [place] [address] POTASSIUMon 07-01-2024 Potassium [Moles/Vol] 4.2 mmol/L Normal 3.5-5.0 [facility] Comment on above: Performed By: #### C BCA, 5643-2, 8-8, CMP, 3040-3, 38834-5, PINR, 89596-5 #### [facility] ([id number]) [address], [address] [place] [address] Potassium [Moles/Vol] 3.8 mmol/L Normal 3.5-5.0 [facility] Comment on above: Performed By: #### C BCA, 5643-2, 8-8, CMP, 3040-3, 46582-8, PINR, 47604-9 #### [facility] ([id number]) [address], [address] [place] [address] Phosphoruson 07-01-2024 Phosphate [Mass/Vol] 2.4 mg/dL 2.4 - 4 .9 mg/dL [facility] Potassiumon 07-01-2024 Potassium [Moles/Vol] 4.2 mmol/L 3.5 - 5.0 mmol/L [facility] Potassium [Moles/Vol] 3.8 mmol/L 3.5 - 5.0 mmol/L [facility] Potassium [Moles/Vol]on 06-15 [facility] BASIC METABOLIC PANLon 06-30 Anion gap [Moles/Vol] 8 mmol/L Normal 5-15 [facility] Comment on above: Performed By: #### C BCA, 5643-2, 1797-8, CMP, 3040-3, 81649-5, PINR, 88236-4 #### [facility] ([id number]) [address], [address] [place] [address] Calcium [Mass/Vol] 7.4 mg/dL Low 8.5-10.5 [facility] Comment on above: Performed By: #### C BCA, 5643-2, 1797-8, CMP, 3040-3, 42962-7, PINR, 60222-0 #### [facility] ([id number]) [address], [address] [place] [address] Chloride [Moles/Vol] 112 mmol/L High 98-109 [facility] Comment on above: Performed By: #### C BCA, 5643-2, 1797-8, CMP, 3040-3, 69350-3, PINR, 64282-0 #### [facility] ([id number]) [address], [address] [place] [address] CO2 [Moles/Vol] 22 mmol/L Normal 22-32 [facility] Comment on above: Performed By: #### C BCA, 5643-2, 1797-8, CMP, 3040-3, 73629-9, PINR, 20997-3 #### [facility] ([id number]) [address], [address] [place] [address] Creatinine [Mass/Vol] 1.39 mg/dL High 0.60-1.30 [facility] Comment on above: Result Comment: METH OD TRACEABLE TO IDMS STANDARD Performed By: #### C BCA, 5643-2, 1797-8, CMP, 3040-3, 12809-0, PINR, 63160-4 #### [facility] ([id number]) [address], [address] [address] GFR/1.73 sq M.predicted among non-blacks MDRD (S/P/Bld) [Vol rate/Area] 52 mL/min/{1.73_m2} Low >59 [facility] Comment on above: Result Comment: Reported eGFR is based on the CKD-EPI 2020 equation that does not use a race coefficient. Performed By: #### C BCA, 5643-2, 8, CMP, 3040-3, 62389-1, PINR, 15832-5 #### [facility] ([id number]) [address] [address] Glucose [Mass/Vol] 69 mg/dL Normal 65-99 [facility] Comment on above: Performed By: #### C BCA, 5643-2, 1797-12, CMP, 3040-3, 43141-0, PINR, 10988-2 #### [facility] ([id number]) [address] [address] Potassium [Moles/Vol] 4.2 mmol/L Normal 3.5-5.0 [facility] Comment on above: Performed By: #### C BCA, 5643-2, 1797-12, CMP, 3040-3, 71579-8, PINR, 43289-6 #### [facility] ([id number]) [address] [address] Sodium [Moles/Vol] 142 mmol/L Normal 134-146 [facility] Comment on above: Performed By: #### C BCA, 5643-2, 8, CMP, 3040-3, 41950-8, PINR, 36201-6 #### [facility] ([id number]) [address] [address] Urea nitrogen [Mass/Vol] 20 mg/dL Normal 5-27 [facility] Comment on above: Performed By: #### C BCA, 5643-2, 1798-8, CMP, 3040-3, 09896-5, PINR, 24842-7 #### [facility] ([id number]) [address] [place] [address] Bacteria identified Cx Nom ( U)on 06-30-2024 Service comment (Unsp spec) [Interp] URINE RECEIVED WITHOUT PRESERVATIVE [facility] Service comment (Unsp spec) [Interp] NO GROWTH AT <1000 CFU/mL [facility] Basic Metabolic Panelon 06-15 Anion gap [Moles/Vol] 8 mmol/L 5 - 15 mmol/L [facility] Calcium [Mass/Vol] 7.4 mg/dL Low 8.5 - 10. 5 mg/dL [facility] Chloride [Moles/Vol] 112 mmol/L High 98 - 10 9 mmol/L [facility] CO2 [Moles/Vol] 22 mmol/L 22 - 32 mmol/L [facility] Creatinine [Mass/Vol] 1.39 mg/dL High 0.60 - 1.30 mg/dL [facility] Comment on above: METHOD TRACEABLE TO IDWA STANDARD eGFR (CKD-EPI)non-race dependent 52 Low - PINF [facility] Comment on above: Reported eGFR is based on the CKD-EPI 2020 equation that does not use a race coefficient. Glucose [Mass/Vol] 69 mg/dL 65 - 99 mg/dL [facility] Interpretation and review of laboratory results Abnormal [facility] Potassium [Moles/Vol] 4.2 mmol/L 3.5 - 5.0 mmol/L [facility] Sodium [Moles/Vol] 142 mmol/L 134 - 146 mmol/L [facility] Urea nitrogen [Mass/Vol] 20 mg/dL 5 - 27 mg/dL [facility] CBC AND AUTO DIFFon 06-30-19 25 ABSOLUTE BASOPHIL 0.1 X10E9/L Normal 0.0-0.2 [facility] Comment on above: Performed By: #### C BCA, 5643-2, 8-8, CMP, 3040-3, 72097-6, PINR, 00162-1 #### [facility] ([id number]) [address], [address] [place] [address] ABSOLUTE NEUTROPHIL 8.7 X10E9/L High 1.5-6.6 [facility] Comment on above: Performed By: #### C BCA, 5643-2, 8, CMP, 3040-3, 85043-0, PINR, 33949-5 #### [facility] ([id number]) [address], [address] [place] [address] Basophils/100 WBC (Bld) 1.4 % Normal [facility] Comment on above: Performed By: #### C BCA, 5643-2, 1797-12, CMP, 3040-3, 86218-3, PINR, 44761-8 #### [facility] ([id number]) [address], [address] [place] [address] Eosinophils (Bld) [#/Vol] 0.1 10*3/uL Normal 0.0-0.4 [facility] Comment on above: Performed By: #### C BCA, 5643-2, 1797-12, CMP, 3040-3, 40219-2, PINR, 08194-7 #### [facility] ([id number]) [address], [address] [place] [address] Eosinophils/100 WBC (Bld) 0.6 % Normal [facility] Comment on above: Performed By: #### C BCA, 5643-2, 8, CMP, 3040-3, 26526-8, PINR, 89366-0 #### [facility] ([id number]) [address], [address] [place] [address] Erythrocyte distribution width (RBC) [Ratio] 15.6 % High 11.5-15.0 [facility] Comment on above: Performed By: #### C BCA, 5643-2, 1797-8, CMP, 3040-3, 33877-7, PINR, 62009-4 #### [facility] ([id number]) [address], [address] [place] [address] Hematocrit (Bld) [Volume fraction] 30.3 % Low 39-49 [facility] Comment on above: Performed By: #### C BCA, 5643-2, 1797-8, CMP, 3040-3, 17116-4, PINR, 99930-5 #### [facility] ([id number]) [address], [address] [place] [address] Hemoglobin (Bld) [Mass/Vol] 10.4 g/dL Low 13.0-17.0 [facility] Comment on above: Performed By: #### C BCA, 5643-2, 1797-12, CMP, 3040-3, 57194-1, PINR, 19863-8 #### [facility] ([id number]) [address], [address] [place] [address] Lymphocytes (Bld) [#/Vol] 0.6 10*3/uL Low 1.0-3.5 [facility] Comment on above: Performed By: #### C BCA, 5643-2, 1797-12, CMP, 3040-3, 25489-1, PINR, 29750-9 #### [facility] ([id number]) [address], [address] [place] [address] Lymphocytes/100 WBC (Bld) 5.6 % Normal [facility] Comment on above: Performed By: #### C BCA, 5643-2, 8, CMP, 3040-3, 04128-2, PINR, 63349-9 #### [facility] ([id number]) [address], [address] [place] [address] MCH (RBC) [Entitic mass] 31.5 pg Normal 27-34 [facility] Comment on above: Performed By: #### C BCA, 5643-2, 1797-8, CMP, 3040-3, 49124-1, PINR, 86156-2 #### [facility] ([id number]) [address], [address] [place] [address] MCHC (RBC) [Mass/Vol] 34.3 g/dL Normal 32-36 [facility] Comment on above: Performed By: #### C BCA, 5643-2, 1797-8, CMP, 3040-3, 95862-5, PINR, 18806-9 #### [facility] ([id number]) [address], [address] [place] [address] MCV (RBC) [Entitic vol] 92 fL Normal 80-100 [facility] Comment on above: Performed By: #### C BCA, 5643-2, 1797-8, CMP, 3040-3, 81336-0, PINR, 08491-7 #### [facility] ([id number]) [address], [address] [place] [address] Monocytes (Bld) [#/Vol] 0.6 10*3/uL Normal 0-0.9 [facility] Comment on above: Performed By: #### C BCA, 5643-2, 1797-8, CMP, 3040-3, 33756-0, PINR, 09121-0 #### [facility] ([id number]) [address], [address] [place] [address] Monocytes/100 WBC (Bld) 6.4 % Normal [facility] Comment on above: Performed By: #### C BCA, 5643-2, 1797-8, CMP, 3040-3, 86316-3, PINR, 51741-4 #### [facility] ([id number]) [address], [address] [place] [address] Neutrophils/100 WBC (Bld) 86.0 % Normal [facility] Comment on above: Performed By: #### C BCA, 5643-2, 8-8, CMP, 3040-3, 54086-2, PINR, 23560-4 #### [facility] ([id number]) [address] [address] Platelet mean volume (Bld) [Entitic vol] 8.8 fL Normal 7-12 [facility] Comment on above: Performed By: #### C BCA, 5643-2, 1797-8, CMP, 3040-3, 61965-2, PINR, 94236-6 #### [facility] ([id number]) [address] [address] Platelets (Bld) [#/Vol] 197 10*3/uL Normal 150-450 [facility] Comment on above: Performed By: #### Kacey BCA, 5643-2, 1797-8, CMP, 3040-3, 10313-2, PINR, 57025-5 #### [facility] ([id number]) [address] [address] RBC COUNT 3.30 X10E12/L Low 4.10-5.70 [facility] Comment on above: Performed By: #### C BCA, 5643-2, 1797-8, CMP, 3040-3, 88987-5, PINR, 09153-1 #### [facility] ([id number]) [address] [address] WBC (Bld) [#/Vol] 10.1 10*3/uL Normal 4.0-11.0 [facility] Comment on above: Performed By: #### C BCA, 5643-2, 1797-8, CMP, 3040-3, 30360-9, PINR, 18141-3 #### [facility] ([id number]) [address] [address] CBC auto differentialon 06-15 Basophils (Bld) [#/Vol] 0.1 10*3/uL [facility] Basophils/100 WBC (Bld) 1.4 % P [facility] Eosinophils (Bld) [#/Vol] 0.1 10*3/uL [facility] Eosinophils/100 WBC (Bld) 0.6 % [facility] Erythrocyte distribution width (RBC) [Ratio] 15.6 % High 11.5 - 15.0 % [facility] Hematocrit (Bld) [Volume fraction] 30.3 % Low 39 - 49 % [facility] Hemoglobin (Bld) [Mass/Vol] 10.4 g/dL Low 13.0 - 17.0 g/dL [facility] Interpretation and review of laboratory results Abnormal [facility] Lymphocytes (Bld) [#/Vol] 0.6 10*3/uL Low [facility] Lymphocytes/100 WBC (Bld) 5.6 % [facility] MCH (RBC) [Entitic mass] 31.5 pg 27 - 34 pg [facility] MCHC (RBC) [Mass/Vol] 34.3 g/dL 32 - 3 6 g/dL [facility] MCV (RBC) [Entitic vol] 92 fL 80 - 100 fL [facility] Monocytes (Bld) [#/Vol] 0.6 10*3/uL [facility] Monocytes/100 WBC (Bld) 6.4 % P [facility] Neutrophils (Bld) [#/Vol] 8.7 10*3/uL High [facility] Neutrophils/100 WBC (Bld) 86 % [facility] Platelet mean volume (Bld) [Entitic vol] 8.8 fL 7 - 12 fL [facility] Platelets (Bld) [#/Vol] 197 10*3/uL [facility] RBC (Bld) [#/Vol] 3.3 10*6/uL Low [facility] WBC corrected for nucl RBC Auto (Bld) [#/Vol] 10.1 [facility] Calcium.ionized (Bld) [Mass/ Vol]on 06-30-2024 [facility] IONIZED CALCIUM 4.7 mg/dL Normal 4.5-5.3 [facility] Comment on above: Performed By: #### C HERNANDEZ, 5643-2, 1798-8, CMP, 3040-3, 76971-4, PINR, 39661-2 #### [facility] ([id number]) [address], [address] [place] [address] Crossmatch RBC:Number of Uni ts: 1on 06-30-2024 BB Type Barcode 6200 [facility] Blood component type [id number] [facility] Crossmatch Compatible [facility] Expiration Date [id number] [facility] Status of unit TRANSFUSED [facility] Unit ABO A [facility] Unit number [id number] [facility] Unit RH Positive [facility] Glucose Glucometer (BldC) [M ass/Vol]on 06-30-2024 Glucose [Mass/Vol] 88 mg/dL 65 - 99 mg/dL [facility] Glucose [Mass/Vol] 88 mg/dL Normal 65-99 [facility] Glucose [Mass/Vol] 78 mg/dL 65 - 99 mg/dL [facility] Glucose [Mass/Vol] 78 mg/dL Normal 65-99 [facility] Glucose [Mass/Vol] 67 mg/dL 65 - 99 mg/dL [facility] Glucose [Mass/Vol] 67 mg/dL Normal 65-99 [facility] Glucose [Mass/Vol] 90 mg/dL Normal 65-99 [facility] Glucose [Mass/Vol] 71 mg/dL 65 - 99 mg/dL [facility] Glucose [Mass/Vol] 71 mg/dL Normal 65-99 [facility] HGBon 06-30-2024 Hematocrit (Bld) [Volume fraction] 29.7 % Low 39-49 [facility] Comment on above: Performed By: #### C HERNANDEZ, 5643-2, 1798-8, CMP, 3040-3, 77339-1, PINR, 59012-5 #### [facility] ([id number]) [address] [place] [address] Hemoglobin (Bld) [Mass/Vol] 10.1 g/dL Low 13.0-17.0 [facility] Comment on above: Performed By: #### C BCA, 5643-2, 8, CMP, 3040-3, 34046-3, PINR, 88070-1 #### [facility] ([id number]) [address], [address] [place] [address] Hematocrit (Bld) [Volume fraction] 29.1 % Low 39-49 [facility] Comment on above: Performed By: #### C BCA, 5643-2, 8, CMP, 3040-3, 80369-2, PINR, 31676-3 #### [facility] ([id number]) [address], [address] [place] [address] Hemoglobin (Bld) [Mass/Vol] 10.0 g/dL Low 13.0-17.0 [facility] Comment on above: Performed By: #### C BCA, 5643-2, 1797-12, CMP, 3040-3, 33610-1, PINR, 25773-2 #### [facility] ([id number]) [address] [place] [address] Hematocrit (Bld) [Volume fraction] 29.9 % Low 39-49 [facility] Comment on above: Performed By: #### C BCA, 5643-2, 8, CMP, 3040-3, 82828-4, PINR, 10802-8 #### [facility] ([id number]) [address] [place] [address] Hemoglobin (Bld) [Mass/Vol] 10.1 g/dL Low 13.0-17.0 [facility] Comment on above: Performed By: #### C BCA, 5643-2, 1798-8, CMP, 3040-3, 65180-9, PINR, 13099-9 #### [facility] ([id number]) [address], [address] [place] [address] Hemoglobin and hematocrit, b loodon 06-30-2024 Hematocrit (Bld) [Volume fraction] 29.7 % Low 39 - 49 % [facility] Hemoglobin (Bld) [Mass/Vol] 10.1 g/dL Low 13.0 - 17.0 g/dL [facility] Interpretation and review of laboratory results Abnormal [facility] Hematocrit (Bld) [Volume fraction] 29.1 % Low 39 - 49 % [facility] Hemoglobin (Bld) [Mass/Vol] 10 g/dL Low 13.0 - 17.0 g/dL [facility] Interpretation and review of laboratory results Abnormal [facility] Hematocrit (Bld) [Volume fraction] 29.9 % Low 39 - 49 % [facility] Hemoglobin (Bld) [Mass/Vol] 10.1 g/dL Low 13.0 - 17.0 g/dL [facility] Interpretation and review of laboratory results Abnormal [facility] Ionized calciumon 06-30-2024 Calcium.ionized (Bld) [Mass/Vol] 4.7 mg/dL 4.5 - 5.3 mg/dL [facility] Ionized magnesiumon 06-30-19 Magnesium Ionized ISE (Bld) [Moles/Vol] 0.53 mmol/L 0.45 - 0.74 mmol/L [facility] Comment on above: NEW REFERENCE RANGE Magnesium Ionized ISE (Bld) [Moles/Vol]on 06-30-2024 [facility] Magnesium [Moles/Vol] 0.53 mmol/L Normal 0.45-0.74 [facility] Comment on above: Result Comment: NEW REFERENCE RANGE Performed By: #### C BCA, 5643-2, 1798-8, CMP, 3040-3, 63196-1, PINR, 96812-8 #### [facility] ([id number]) [address], [address] [place] [address] No Panel Informationon 06-30 [facility] PHOSPHORUSon 06-30-2024 Phosphate [Mass/Vol] 3.5 mg/dL Normal 2.4-4.9 [facility] Comment on above: Performed By: #### C BCA, 5643-2, 1798-8, CMP, 3040-3, 53433-3, PINR, 76547-2 #### [facility] ([id number]) [address], [address] [place] [address] Phosphoruson 06-30-2024 Phosphate [Mass/Vol] 3.5 mg/dL 2.4 - 4 .9 mg/dL [facility] XR CHEST 1 VWon 06-30-2024 XR [...] Shell MD on 06/30/2024 8:17 PM Normal [facility] XR Chest Single viewon 06-30 CLINICAL INFORMATION: [...] Frieda Shell MD on 06/30/2024 8:17 PM [facility] Radiology Study observation (narrative) [facility] XR Chest Single viewOrdered By: Frieda Shell on 06-30-2024 [facility] Work Phone: ABO Rh Repeaton 06-29-2024 ABO A [facility] Rh Nom (Bld) Positive [facility] ABO A [facility] Rh Nom (Bld) Positive [facility] AMYLASEon 06-29-2024 Amylase [Catalytic activity/Vol] 14 U/L Low 28-100 [facility] Comment on above: Performed By: #### C BCA, 5643-2, 1798-8, CMP, 3040-3, 07203-1, PINR, 37275-7 #### [facility] ([id number]) [address] [place] [address] APTTon 06-29-2024 aPTT Coag (PPP) [Time] 33 s [facility] Amylaseon 06-29-2024 Amylase [Catalytic activity/Vol] 14 U/L Low 28 - 100 U/L [facility] BASIC METABOLIC PANLon 06-29 Anion gap [Moles/Vol] 8 mmol/L Normal 5-15 [facility] Comment on above: Performed By: #### I 8XCA #### [facility] ([id number]) [address] [place] [address] Calcium [Mass/Vol] 7.6 mg/dL Low 8.5-10.5 [facility] Comment on above: Performed By: #### I 8XCA #### [facility] ([id number]) [address] [place] [address] Chloride [Moles/Vol] 108 mmol/L Normal 98-109 [facility] Comment on above: Performed By: #### I 8XCA #### [facility] ([id number]) [address] [place] [address] CO2 [Moles/Vol] 23 mmol/L Normal 22-32 [facility] Comment on above: Performed By: #### I 8XCA #### [facility] ([id number]) [address] [place] [address] Creatinine [Mass/Vol] 1.57 mg/dL High 0.60-1.30 [facility] Comment on above: Result Comment: METH OD TRACEABLE TO IDMS STANDARD Performed By: #### I 8XCA #### [facility] ([id number]) [address] [place] [address] GFR/1.73 sq M.predicted among non-blacks MDRD (S/P/Bld) [Vol rate/Area] 45 mL/min/{1.73_m2} Low >59 [facility] Comment on above: Result Comment: Reported eGFR is based on the CKD-EPI 2020 equation that does not use a race coefficient. Performed By: #### I 8XCA #### [facility] ([id number]) [address] [place] [address] Glucose [Mass/Vol] 111 mg/dL High 65-99 [facility] Comment on above: Performed By: #### I 8XCA #### [facility] ([id number]) [address] [place] [address] Potassium [Moles/Vol] 3.7 mmol/L Normal 3.5-5.0 [facility] Comment on above: Performed By: #### I 8XCA #### [facility] ([id number]) [address] [place] [address] Sodium [Moles/Vol] 139 mmol/L Normal 134-146 [facility] Comment on above: Performed By: #### I 8XCA #### [facility] ([id number]) [address] [place] [address] Urea nitrogen [Mass/Vol] 17 mg/dL Normal 5-27 [facility] Comment on above: Performed By: #### I 8XCA #### [facility] ([id number]) [address] [place] [address] Basic Metabolic Panelon 06-15 Anion gap [Moles/Vol] 8 mmol/L 5 - 15 mmol/L [facility] Calcium [Mass/Vol] 7.6 mg/dL Low 8.5 - 10. 5 mg/dL [facility] Chloride [Moles/Vol] 108 mmol/L 98 - 10 9 mmol/L [facility] CO2 [Moles/Vol] 23 mmol/L 22 - 32 mmol/L [facility] Creatinine [Mass/Vol] 1.57 mg/dL High 0.60 - 1.30 mg/dL [facility] Comment on above: METHOD TRACEABLE TO IDWA STANDARD eGFR (CKD-EPI)non-race dependent 45 Low - PINF [facility] Comment on above: Reported eGFR is based on the CKD-EPI 2020 equation that does not use a race coefficient. Glucose [Mass/Vol] 111 mg/dL High 65 - 99 mg/dL [facility] Interpretation and review of laboratory results Abnormal [facility] Potassium [Moles/Vol] 3.7 mmol/L 3.5 - 5.0 mmol/L [facility] Sodium [Moles/Vol] 139 mmol/L 134 - 146 mmol/L [facility] Urea nitrogen [Mass/Vol] 17 mg/dL 5 - 27 mg/dL [facility] CBC AND AUTO DIFFon 06-29-19 ABSOLUTE BASOPHIL 0.1 X10E9/L Normal 0.0-0.2 [facility] Comment on above: Performed By: #### I 8XCA #### [facility] ([id number]) [address] [place] [address] ABSOLUTE NEUTROPHIL 10.1 X10E9/L High 1.5-6.6 [facility] Comment on above: Performed By: #### I 8XCA #### [facility] ([id number]) [address] [place] [address] Basophils/100 WBC (Bld) 0.4 % Normal [facility] Comment on above: Performed By: #### I 8XCA #### [facility] ([id number]) [address] [place] [address] Eosinophils (Bld) [#/Vol] 0.0 10*3/uL Normal 0.0-0.4 [facility] Comment on above: Performed By: #### I 8XCA #### [facility] ([id number]) [address] [place] [address] Eosinophils/100 WBC (Bld) 0.1 % Normal [facility] Comment on above: Performed By: #### I 8XCA #### [facility] ([id number]) [address] [place] [address] Erythrocyte distribution width (RBC) [Ratio] 14.7 % Normal 11.5-15.0 [facility] Comment on above: Performed By: #### I 8XCA #### [facility] ([id number]) [address] [place] [address] Hematocrit (Bld) [Volume fraction] 23.6 % Low 39-49 [facility] Comment on above: Performed By: #### I 8XCA #### [facility] ([id number]) [address] [place] [address] Hemoglobin (Bld) [Mass/Vol] 8.1 g/dL Low 13.0-17.0 [facility] Comment on above: Performed By: #### I 8XCA #### [facility] ([id number]) [address] [place] [address] Lymphocytes (Bld) [#/Vol] 0.6 10*3/uL Low 1.0-3.5 [facility] Comment on above: Performed By: #### I 8XCA #### [facility] ([id number]) [address] [place] [address] Lymphocytes/100 WBC (Bld) 4.8 % Normal [facility] Comment on above: Performed By: #### I 8XCA #### [facility] ([id number]) [address] [place] [address] MCH (RBC) [Entitic mass] 31.7 pg Normal 27-34 [facility] Comment on above: Performed By: #### I 8XCA #### [facility] ([id number]) [address] [place] [address] MCHC (RBC) [Mass/Vol] 34.1 g/dL Normal 32-36 [facility] Comment on above: Performed By: #### I 8XCA #### [facility] ([id number]) [address] [place] [address] MCV (RBC) [Entitic vol] 93 fL Normal 80-100 [facility] Comment on above: Performed By: #### I 8XCA #### [facility] ([id number]) [address] [place] [address] Monocytes (Bld) [#/Vol] 1.0 10*3/uL High 0-0.9 [facility] Comment on above: Performed By: #### I 8XCA #### [facility] ([id number]) [address] [place] [address] Monocytes/100 WBC (Bld) 8.2 % Normal [facility] Comment on above: Performed By: #### I 8XCA #### [facility] ([id number]) [address] [place] [address] Neutrophils/100 WBC (Bld) 86.5 % Normal [facility] Comment on above: Performed By: #### I 8XCA #### [facility] ([id number]) [address] [place] [address] Platelet mean volume (Bld) [Entitic vol] 9.0 fL Normal 7-12 [facility] Comment on above: Performed By: #### I 8XCA #### [facility] ([id number]) [address] [place] [address] Platelets (Bld) [#/Vol] 193 10*3/uL Normal 150-450 [facility] Comment on above: Performed By: #### I 8XCA #### [facility] ([id number]) [address] [place] [address] RBC COUNT 2.54 X10E12/L Low 4.10-5.70 [facility] Comment on above: Performed By: #### I 8XCA #### [facility] ([id number]) [address] [place] [address] WBC (Bld) [#/Vol] 11.7 10*3/uL High 4.0-11.0 [facility] Comment on above: Performed By: #### I 8XCA #### [facility] ([id number]) [address] [place] [address] ABSOLUTE BASOPHIL 0.0 X10E9/L Normal 0.0-0.2 [facility] Comment on above: Performed By: #### C BCA, 5643-2, 1798-8, CMP, 3040-3, 17210-6, PINR, [id number] #### [facility] ([id number]) [address] [place] [address] ABSOLUTE NEUTROPHIL 9.1 X10E9/L High 1.5-6.6 [facility] Comment on above: Performed By: #### C BCA, 5643-2, 1797-8, CMP, 3040-3, 75563-0, PINR, [id number] #### [facility] ([id number]) [address], [address] [place] [address] Basophils/100 WBC (Bld) 0.1 % Normal [facility] Comment on above: Performed By: #### C BCA, 5643-2, 1797-8, CMP, 3040-3, 48410-2, PINR, 87289-1 #### [facility] ([id number]) [address], [address] [place] [address] Eosinophils (Bld) [#/Vol] 0.0 10*3/uL Normal 0.0-0.4 [facility] Comment on above: Performed By: #### C BCA, 5643-2, 1797-8, CMP, 3040-3, 24825-7, PINR, 97325-9 #### [facility] ([id number]) [address], [address] [place] [address] Eosinophils/100 WBC (Bld) 0.0 % Normal [facility] Comment on above: Performed By: #### C BCA, 5643-2, 1797-8, CMP, 3040-3, 34258-0, PINR, 13967-0 #### [facility] ([id number]) [address], [address] [place] [address] Erythrocyte distribution width (RBC) [Ratio] 14.5 % Normal 11.5-15.0 [facility] Comment on above: Performed By: #### C BCA, 5643-2, 1797-8, CMP, 3040-3, 49302-0, PINR, 16364-3 #### [facility] ([id number]) [address], [address] [place] [address] Hematocrit (Bld) [Volume fraction] 20.6 % Low 39-49 [facility] Comment on above: Performed By: #### C BCA, 5643-2, 1797-8, CMP, 3040-3, 96218-3, PINR, 20788-7 #### [facility] ([id number]) [address], [address] [place] [address] Hemoglobin (Bld) [Mass/Vol] 6.9 g/dL Critically low 13.0-17.0 [facility] Comment on above: Performed By: #### C BCA, 5643-2, 1797-8, CMP, 3040-3, 01173-3, PINR, 47472-2 #### [facility] ([id number]) [address], [facility] [address] [place] [address] Lymphocytes (Bld) [#/Vol] 0.6 10*3/uL Low 1.0-3.5 [facility] Comment on above: Performed By: #### C BCA, 5643-2, 1797-8, CMP, 3040-3, 06162-4, PINR, 38492-7 #### [facility] ([id number]) [address], [address] [place] [address] Lymphocytes/100 WBC (Bld) 5.3 % Normal [facility] Comment on above: Performed By: #### C BCA, 5643-2, 1797-8, CMP, 3040-3, 65171-6, PINR, 84110-2 #### [facility] ([id number]) [address], [address] [place] [address] MCH (RBC) [Entitic mass] 31.4 pg Normal 27-34 [facility] Comment on above: Performed By: #### C BCA, 5643-2, 1797-8, CMP, 3040-3, 97093-0, PINR, 65455-1 #### [facility] ([id number]) [address], [address] [place] [address] MCHC (RBC) [Mass/Vol] 33.4 g/dL Normal 32-36 [facility] Comment on above: Performed By: #### C BCA, 5643-2, 8-8, CMP, 3040-3, 78082-7, PINR, 83176-4 #### [facility] ([id number]) [address], [address] [place] [address] MCV (RBC) [Entitic vol] 94 fL Normal 80-100 [facility] Comment on above: Performed By: #### C BCA, 5643-2, 1797-8, CMP, 3040-3, 01285-8, PINR, 20599-7 #### [facility] ([id number]) [address], [facility] [address] [place] [address] Monocytes (Bld) [#/Vol] 0.9 10*3/uL Normal 0-0.9 [facility] Comment on above: Performed By: #### C BCA, 5643-2, 1797-8, CMP, 3040-3, 73989-8, PINR, 80622-3 #### [facility] ([id number]) [address], [facility] [address] [place] [address] Monocytes/100 WBC (Bld) 8.6 % Normal [facility] Comment on above: Performed By: #### C BCA, 5643-2, 1797-8, CMP, 3040-3, 92604-3, PINR, 11924-7 #### [facility] ([id number]) [address], [address] [place] [address] Neutrophils/100 WBC (Bld) 86.0 % Normal [facility] Comment on above: Performed By: #### C BCA, 5643-2, 1797-8, CMP, 3040-3, 11123-4, PINR, 94970-0 #### [facility] ([id number]) [address], [address] [address] Platelet mean volume (Bld) [Entitic vol] 9.3 fL Normal 7-12 [facility] Comment on above: Performed By: #### C BCA, 5643-2, 1797-8, CMP, 3040-3, 19375-7, PINR, 52504-9 #### [facility] ([id number]) [address] [address] Platelets (Bld) [#/Vol] 186 10*3/uL Normal 150-450 [facility] Comment on above: Performed By: #### C BCA, 5643-2, 1797-8, CMP, 3040-3, 62072-1, PINR, 76662-3 #### [facility] ([id number]) [address] [address] RBC COUNT 2.19 X10E12/L Low 4.10-5.70 [facility] Comment on above: Performed By: #### C BCA, 5643-2, 8, CMP, 3040-3, 07957-1, PINR, 18404-3 #### [facility] ([id number]) [address] [address] WBC (Bld) [#/Vol] 10.6 10*3/uL Normal 4.0-11.0 [facility] Comment on above: Performed By: #### Kacey BCA, 5643-2, 8, CMP, 3040-3, 68382-0, PINR, 90508-4 #### [facility] ([id number]) [address] [address] CBC auto differentialon 06-15 Basophils (Bld) [#/Vol] 0.1 10*3/uL [facility] Basophils/100 WBC (Bld) 0.4 % P [facility] Eosinophils (Bld) [#/Vol] 0 10*3/uL [facility] Eosinophils/100 WBC (Bld) 0.1 % [facility] Erythrocyte distribution width (RBC) [Ratio] 14.7 % 11.5 - 15.0 % [facility] Hematocrit (Bld) [Volume fraction] 23.6 % Low 39 - 49 % [facility] Hemoglobin (Bld) [Mass/Vol] 8.1 g/dL Low 13.0 - 17.0 g/dL [facility] Interpretation and review of laboratory results Abnormal [facility] Lymphocytes (Bld) [#/Vol] 0.6 10*3/uL Low [facility] Lymphocytes/100 WBC (Bld) 4.8 % [facility] MCH (RBC) [Entitic mass] 31.7 pg 27 - 34 pg [facility] MCHC (RBC) [Mass/Vol] 34.1 g/dL 32 - 3 6 g/dL [facility] MCV (RBC) [Entitic vol] 93 fL 80 - 100 fL [facility] Monocytes (Bld) [#/Vol] 1 10*3/uL High [facility] Monocytes/100 WBC (Bld) 8.2 % [facility] Neutrophils (Bld) [#/Vol] 10.1 10*3/uL High [facility] Neutrophils/100 WBC (Bld) 86.5 % [facility] Platelet mean volume (Bld) [Entitic vol] 9 fL 7 - 12 fL [facility] Platelets (Bld) [#/Vol] 193 10*3/uL [facility] RBC (Bld) [#/Vol] 2.54 10*6/uL Low [facility] WBC corrected for nucl RBC Auto (Bld) [#/Vol] 11.7 High [facility] Basophils (Bld) [#/Vol] 0 10*3/uL [facility] Basophils/100 WBC (Bld) 0.1 % [facility] Eosinophils (Bld) [#/Vol] 0 10*3/uL [facility] Eosinophils/100 WBC (Bld) 0 % [facility] Erythrocyte distribution width (RBC) [Ratio] 14.5 % 11.5 - 15.0 % [facility] Hematocrit (Bld) [Volume fraction] 20.6 % Low 39 - 49 % [facility] Hemoglobin (Bld) [Mass/Vol] 6.9 g/dL Critically low 13.0 - 17.0 g/dL [facility] Interpretation and review of laboratory results Abnormal [facility] Lymphocytes (Bld) [#/Vol] 0.6 10*3/uL Low [facility] Lymphocytes/100 WBC (Bld) 5.3 % [facility] MCH (RBC) [Entitic mass] 31.4 pg 27 - 34 pg [facility] MCHC (RBC) [Mass/Vol] 33.4 g/dL 32 - 3 6 g/dL [facility] MCV (RBC) [Entitic vol] 94 fL 80 - 100 fL [facility] Monocytes (Bld) [#/Vol] 0.9 10*3/uL [facility] Monocytes/100 WBC (Bld) 8.6 % [facility] Neutrophils (Bld) [#/Vol] 9.1 10*3/uL High [facility] Neutrophils/100 WBC (Bld) 86 % [facility] Platelet mean volume (Bld) [Entitic vol] 9.3 fL 7 - 12 fL [facility] Platelets (Bld) [#/Vol] 186 10*3/uL [facility] RBC (Bld) [#/Vol] 2.19 10*6/uL Low [facility] WBC corrected for nucl RBC Auto (Bld) [#/Vol] 10.6 [facility] COMPREHENSIVE METABOLIC PANE Larry 06-29-2024 Albumin [Mass/Vol] 2.4 g/dL Low 3.2-5.3 [facility] Comment on above: Performed By: #### C BCA, 5643-2, 1798-8, CMP, 3040-3, 50115-7, PINR, 58456-9 #### [facility] ([id number]) [address], [address] [place] [address] ALP [Catalytic activity/Vol] 63 U/L Normal 39-130 [facility] Comment on above: Performed By: #### C BCA, 5643-2, 1797-8, CMP, 3040-3, 76541-6, PINR, 14185-9 #### [facility] ([id number]) [address], [address] [place] [address] ALT [Catalytic activity/Vol] 9 U/L Normal 0-40 [facility] Comment on above: Performed By: #### C BCA, 5643-2, 1797-8, CMP, 3040-3, 20277-6, PINR, 91798-4 #### [facility] ([id number]) [address], [address] [place] [address] Anion gap [Moles/Vol] 8 mmol/L Normal 5-15 [facility] Comment on above: Performed By: #### C BCA, 5643-2, 1797-8, CMP, 3040-3, 87840-1, PINR, 41160-8 #### [facility] ([id number]) [address], [address] [place] [address] AST [Catalytic activity/Vol] 15 U/L Normal 0-41 [facility] Comment on above: Performed By: #### C BCA, 5643-2, 1797-8, CMP, 3040-3, 15206-0, PINR, 35921-4 #### [facility] ([id number]) [address], [address] [place] [address] Bilirubin [Mass/Vol] 0.8 mg/dL Normal 0.3-1.2 [facility] Comment on above: Performed By: #### C BCA, 5643-2, 1797-8, CMP, 3040-3, 13767-0, PINR, 32643-1 #### [facility] ([id number]) [address], [address] [place] [address] Calcium [Mass/Vol] 6.9 mg/dL Critically low 8.5-10.5 [facility] Comment on above: Performed By: #### C BCA, 5643-2, 1797-8, CMP, 3040-3, 43639-8, PINR, 50319-7 #### [facility] ([id number]) [address], [address] [place] [address] Chloride [Moles/Vol] 111 mmol/L High 98-109 [facility] Comment on above: Performed By: #### C BCA, 5643-2, 1797-8, CMP, 3040-3, 74195-9, PINR, 25900-6 #### [facility] ([id number]) [address], [address] [place] [address] CO2 [Moles/Vol] 21 mmol/L Low 22-32 [facility] Comment on above: Performed By: #### C BCA, 5643-2, 1797-8, CMP, 3040-3, 61574-4, PINR, 60179-8 #### [facility] ([id number]) [address], [address] [place] [address] Creatinine [Mass/Vol] 1.46 mg/dL High 0.60-1.30 [facility] Comment on above: Result Comment: METH OD TRACEABLE TO IDMS STANDARD Performed By: #### C BCA, 5643-2, 8, CMP, 3040-3, 63806-8, PINR, 36893-8 #### [facility] ([id number]) [address], [address] [place] [address] GFR/1.73 sq M.predicted among non-blacks MDRD (S/P/Bld) [Vol rate/Area] 49 mL/min/{1.73_m2} Low >59 [facility] Comment on above: Result Comment: Reported eGFR is based on the CKD-EPI 2020 equation that does not use a race coefficient. Performed By: #### C BCA, 5643-2, 1797-8, CMP, 3040-3, 42811-2, PINR, 67592-4 #### [facility] ([id number]) [address], [address] [place] [address] Glucose [Mass/Vol] 105 mg/dL High 65-99 [facility] Comment on above: Performed By: #### C BCA, 5643-2, 1797-8, CMP, 3040-3, 88602-5, PINR, 68884-0 #### [facility] ([id number]) [address], [address] [place] [address] Potassium [Moles/Vol] 3.6 mmol/L Normal 3.5-5.0 [facility] Comment on above: Performed By: #### C BCA, 5643-2, 8, CMP, 3040-3, 99379-8, PINR, 99054-7 #### [facility] ([id number]) [address], [address] [place] [address] Protein [Mass/Vol] 4.5 g/dL Low 6.0-8.0 [facility] Comment on above: Performed By: #### C BCA, 5643-2, 8, CMP, 3040-3, 84523-5, PINR, 23003-0 #### [facility] ([id number]) [address], [address] [place] [address] Sodium [Moles/Vol] 140 mmol/L Normal 134-146 [facility] Comment on above: Performed By: #### C BCA, 5643-2, 1797-8, CMP, 3040-3, 97307-0, PINR, 99367-0 #### [facility] ([id number]) [address], [address] [place] [address] Urea nitrogen [Mass/Vol] 16 mg/dL Normal 5-27 [facility] Comment on above: Performed By: #### C BCA, 5643-2, 1797-8, CMP, 3040-3, 91518-9, PINR, 84379-9 #### [facility] ([id number]) [address] [place] [address] Calcium.ionized (Bld) [Mass/ Vol]on 06-29-2024 IONIZED CALCIUM 4.5 mg/dL Normal 4.5-5.3 [facility] Comment on above: Performed By: #### I 8XCA #### [facility] ([id number]) [address] [facility] [place] [address] Comprehensive metabolic pane larry 06-29-2024 Albumin [Mass/Vol] 2.4 g/dL Low 3.2 - 5.3 g/dL [facility] ALP [Catalytic activity/Vol] 63 U/L 39 - 130 U/L [facility] ALT No additional P-5'-P [Catalytic activity/Vol] 9 U/L 0 - 40 U/L [facility] Anion gap [Moles/Vol] 8 mmol/L 5 - 15 mmol/L [facility] AST [Catalytic activity/Vol] 15 U/L 0 - 41 U/L [facility] Bilirubin [Mass/Vol] 0.8 mg/dL 0.3 - 1 .2 mg/dL [facility] Calcium [Mass/Vol] 6.9 mg/dL Critically low 8.5 - 1 0.5 mg/dL [facility] Chloride [Moles/Vol] 111 mmol/L High 98 - 10 9 mmol/L [facility] CO2 [Moles/Vol] 21 mmol/L Low 22 - 32 mmol/L [facility] Creatinine [Mass/Vol] 1.46 mg/dL High 0.60 - 1.30 mg/dL [facility] Comment on above: METHOD TRACEABLE TO IDWA STANDARD eGFR (CKD-EPI)non-race dependent 49 Low - PINF [facility] Comment on above: Reported eGFR is based on the CKD-EPI 2020 equation that does not use a race coefficient. Glucose [Mass/Vol] 105 mg/dL High 65 - 99 mg/dL [facility] Interpretation and review of laboratory results Abnormal [facility] Potassium [Moles/Vol] 3.6 mmol/L 3.5 - 5.0 mmol/L [facility] Protein [Mass/Vol] 4.5 g/dL Low 6.0 - 8.0 g/dL [facility] Sodium [Moles/Vol] 140 mmol/L 134 - 146 mmol/L [facility] Urea nitrogen [Mass/Vol] 16 mg/dL 5 - 27 mg/dL [facility] Crossmatch RBC:on 06-29-2024 BB Type Barcode 6200 [facility] Blood component type [id number] [facility] Expiration Date [facility] Status of unit TRANSFUSED [facility] Unit ABO A [facility] Unit number [id number] [facility] Unit RH Positive [facility] BB Type Barcode 6200 [facility] Blood component type [id number] [facility] Expiration Date [facility] Status of unit ISSUED [facility] Unit ABO A [facility] Unit number [id number] [facility] Unit RH Positive [facility] BB Type Barcode 6200 [facility] Blood component type [id number] [facility] Crossmatch Compatible [facility] Expiration Date [facility] Status of unit SELECTED [facility] Unit ABO A [facility] Unit number [id number] [facility] Unit RH Positive [facility] Expiration Date [id number] [facility] Unit number [id number] [facility] Unit number [id number] [facility] Unit number [id number] [facility] BB Type Barcode 5100 [facility] Blood component type [id number] [facility] Expiration Date [id number] [facility] Status of unit ISSUED [facility] Unit [facility]BO [facility] Unit number [id number] [facility] Unit RH Positive [facility] Unit number [id number] [facility] Unit number [id number] [facility] BB Type Barcode 5100 [facility] Blood component type [id number] [facility] Crossmatch Compatible [facility] Expiration Date [id number] [facility] Status of unit SELECTED [facility] Unit ABO O [facility] Unit number [id number] [facility] Unit RH Positive [facility] BB Type Barcode 5100 [facility] Blood component type [id number] [facility] Crossmatch Compatible [facility] Expiration Date [id number] [facility] Status of unit SELECTED [facility] Unit ABO O [facility] Unit [facility] [id number] [facility] Unit RH Positive [facility] BB Type Barcode 5100 [facility] Blood component type [id number] [facility] Crossmatch Compatible [facility] Expiration Date [id number] [facility] Status of unit SELECTED [facility] Unit ABO O [facility] Unit number [id number] [facility] Unit RH Positive [facility] Crossmatch RBC:Number of Uni ts: 1on 06-29-2024 BB Type Barcode 6200 [facility] Blood component type [id number] [facility] Crossmatch Compatible [facility] Expiration Date [id number] [facility] Status of unit TRANSFUSED [facility] Unit ABO A [facility] Unit number [id number] [facility] Unit RH Positive [facility] BB Type Barcode 5100 [facility] Blood component type [id number] [facility] Crossmatch Compatible [facility] Expiration Date [id number] [facility] Status of unit TRANSFUSED [facility] Unit ABO O [facility] Unit number [id number] [facility] Unit RH Positive [facility] DRUG SCREEN, URINEon 025 AMPHETAMINE/METHAMP Negative Normal NEG [facility] Comment on above: Result Comment: AMPH /METH screening cut off = 1000 ng/mL Performed By: #### I 8XCA #### [facility] ([address] [place] [address]) [address] [place] [address] BARBITURATES Negative Normal NEG [facility] Comment on above: Result Comment: Lilia iturates screening cut off value = 200 ng/mL Performed By: #### I 8XCA #### [facility] ([address] [place] [address]) [address] [place] [address] BENZODIAZEPINES Negative Normal NEG [facility] Comment on above: Result Comment: Danish odiazepines screening cut off value = 200 ng/mL Performed By: #### I 8XCA #### [facility] ([address] [place] [address]) [address] [place] [address] CANNABINOIDS Negative Normal NEG [facility] Comment on above: Result Comment: Dora abinoids/THC screening cut off value = 50 ng/mL Performed By: #### I 8XCA #### [facility] ([address] [place] [address]) [address] [place] [address] COCAINE METABOLITE Negative Normal NEG [facility] Comment on above: Result Comment: Coca ine screening cut off value = 300 ng/mL Performed By: #### I 8XCA #### [facility] ([address] [place] [address]) [address] [place] [address] ECSTASY Negative Normal NEG [facility] Comment on above: Result Comment: Ecst asy screening cut off value = 500 ng/mL This report is intended for use in clinical monitoring or management of patients. Performed By: #### I 8XCA #### [facility] ([id number]) [address] [place] [address] METHADONE Negative Normal NEG [facility] Comment on above: Result Comment: Meth adone screening cut off value = 300 ng/mL. Performed By: #### I 8XCA #### [facility] ([id number]) [address] [place] [address] OPIATES Negative Normal NEG [facility] Comment on above: Result Comment: Opia vasiliy screening cut off value = 300 ng/mL NOTE: This test is used for the detection of codeine, hydrocodone (>1000 ng/mL), morphine and hydromorphone (>900 ng/mL) in urine. Performed By: #### I 8XCA #### [facility] ([id number]) [address] [place] [address] OXYCODONE Negative Normal [facility] Comment on above: Result Comment: Oxyc odone screening cut off value = 300 ng/mL NOTE: This test is used for the detection of oxycodone and oxymorphone in urine. Performed By: #### I 8XCA #### [facility] ([id number]) [address] [place] [address] PHENCYCLIDINE Negative Normal [facility] Comment on above: Result Comment: Phen cyclidine screening cut off value = 25 ng/mL Performed By: #### I 8XCA #### [facility] ([id number]) [address] [place] [address] Drug Screen, Urineon 025 Amphetamines Screen method >1000 ng/mL Ql (U) Negative Negative^N [facility] Comment on above: AMPH/METH screening cut off = 1000 ng/mL Barbiturates Screen Ql (U) Negative N egative^N [facility] Comment on above: Barbiturates screeni ng cut off value = 200 ng/mL Benzodiazepines Ql (U) Negative Negat gabriela^N [facility] Comment on above: Benzodiazepines scre ening cut off value = 200 ng/mL Cocaine Ql (U) Negative Negative^N egative [facility] Comment on above: Cocaine screening cu t off value = 300 ng/mL Methadone Screen Ql (U) Negative Nega tive^N [facility] Comment on above: Methadone screening cut off value = 300 ng/mL. Methylenedioxymethamphetam ine Screen Ql (U) Negative Negative^N [facility] Comment on above: Ecstasy screening cu t off value = 500 ng/mL This report is intended for use in clinical monitoring or management of patients. Opiates Screen Ql (U) Negative Negati ve^N [facility] Comment on above: Opiates screening cu t off value = 300 ng/mL NOTE: This test is used for the detection of codeine, hydrocodone (>1000 ng/mL), morphine and hydromorphone (>900 ng/mL) in urine. oxyCODONE Ql (U) Negative Negative^N [facility] Comment on above: Oxycodone screening cut off value = 300 ng/mL NOTE: This test is used for the detection of oxycodone and oxymorphone in urine. Phencyclidine Screen method >25 ng/mL Ql (U) Negative Negative^N [facility] Comment on above: Phencyclidine screen ing cut off value = 25 ng/mL Tetrahydrocannabinol Screen method >50 ng/mL Ql (U) Negative Negative^N [facility] Comment on above: Cannabinoids/THC scr eening cut off value = 50 ng/mL [facility] ETHANOLon 06-29-2024 Ethanol [Mass/Vol] mg/dL Normal 0.00-0.08 [facility] Comment on above: Result Comment: This report is intended for use in clinical monitoring or management of patients. Performed By: #### C BCA, 5643-2, 1798-8, CMP, 3040-3, 90091-1, PINR, [id number] #### [facility] ([id number]) [address] [place] [address], [address] [place] [address] Ethanolon 06-29-2024 Ethanol [Mass/Vol] g/dL 0.00 - 0.08 g/dL [facility] Comment on above: This report is intended for use in clinical monitoring or management of patients. Fibrinogenon 06-29-2024 Fibrinogen Coagulation.derived (PPP) [Mass/Vol] 501 mg/dL High 190 - 480 mg/dL [facility] Fibrinogen Coagulation.deriv ed (PPP) [Mass/Vol]on 06-29-2024 FIBRINOGEN 501 mg/dL High 190-480 [facility] Comment on above: Performed By: #### C HERNANDEZ, 5643-2, 1797-8, CMP, 3040-3, 88004-0, PINR, [id number] #### [facility] ([id number]) [address], [address] [place] [address] Glucose Glucometer (BldC) [M ass/Vol]on 06-29-2024 Glucose [Mass/Vol] 75 mg/dL 65 - 99 mg/dL [facility] Glucose [Mass/Vol] 75 mg/dL Normal 65-99 [facility] Glucose [Mass/Vol] 78 mg/dL 65 - 99 mg/dL [facility] Glucose [Mass/Vol] 78 mg/dL Normal 65-99 [facility] Glucose [Mass/Vol] 108 mg/dL High 65 - 99 mg/dL [facility] Interpretation and review of laboratory results Abnormal [facility] Glucose [Mass/Vol] 108 mg/dL High 65-99 [facility] HGBon 06-29-2024 Hematocrit (Bld) [Volume fraction] 26.1 % Low 39-49 [facility] Comment on above: Performed By: #### C HERNANDEZ, 5643-2, 1797-8, CMP, 3040-3, 51334-8, PINR, 98473-3 #### [facility] ([id number]) [address], [address] [place] [address] Hemoglobin (Bld) [Mass/Vol] 8.8 g/dL Low 13.0-17.0 [facility] Comment on above: Performed By: #### Kacey GN, 5643-2, 1797-8, CMP, 3040-3, 15985-2, PINR, 48928-2 #### [facility] ([id number]) [address], [address] [place] [address] Hematocrit (Bld) [Volume fraction] 26.8 % Low 39-49 [facility] Comment on above: Performed By: #### C BCA, 5643-2, 8-8, CMP, 3040-3, 39803-8, PINR, [id number] #### [facility] ([id number]) [address], [address] [place] [address] Hemoglobin (Bld) [Mass/Vol] 9.4 g/dL Low 13.0-17.0 [facility] Comment on above: Performed By: #### C BCA, 5643-2, 1797-8, CMP, 3040-3, 97065-0, PINR, 86447-0 #### [facility] ([id number]) [address], [address] [place] [address] Hematocrit (Bld) [Volume fraction] 24.1 % Low 39-49 [facility] Comment on above: Performed By: #### C BCA, 5643-2, 1797-8, CMP, 3040-3, 26891-5, PINR, 00401-7 #### [facility] ([id number]) [address], [address] [place] [address] Hemoglobin (Bld) [Mass/Vol] 7.9 g/dL Low 13.0-17.0 [facility] Comment on above: Performed By: #### C BCA, 5643-2, 8-8, CMP, 3040-3, 32978-0, PINR, [id number] #### [facility] ([id number]) [address], [address] [place] [address] HGB A1C (GLYCO-HGB)on 2024 Glucose [Mass/Vol] 114 mg/dL Normal [facility] Comment on above: Performed By: #### C BCA, 5643-2, 1798-8, [facility], 3040-3, 31297-8, PINR, 61775-4 #### [facility] ([id number]) [address], [address] [place] [address] HbA1c (Bld) [Mass fraction] 5.6 % Normal 4.4-5.6 [facility] Comment on above: Result Comment: NOTE ADA Guidelines Result HgbA1c Normal : less than 5.7 % Prediabetes : 5.7 % to 6.4 % Diabetes : > 6.4 % Use with caution in patients with abnormal hemoglobin variants as the half-life of red blood cells and in vivo glycation rates are affected. Performed By: #### C BCA, 5643-2, 1798-8, [facility], 3040-3, 22211-4, PINR, [id number] #### [facility] ([id number]) [address], [address] [place] [address] Hemoglobin A1con 06-29-2024 Average glucose Estimated from glycated hemoglobin (Bld) [Mass/Vol] 114 mg/dL [facility] HbA1c (Bld) [Mass fraction] 5.6 % 4.4 - 5.6 % [facility] Comment on above: NOTE ADA Guidelines Result HgbA1c Normal : less than 5.7 % Prediabetes : 5.7 % to 6.4 % Diabetes : > 6.4 % Use with caution in patients with abnormal hemoglobin variants as the half-life of red blood cells and in vivo glycation rates are affected. [facility] Hemoglobin and hematocrit, b loodon 06-29-2024 Hematocrit (Bld) [Volume fraction] 26.1 % Low 39 - 49 % [facility] Hemoglobin (Bld) [Mass/Vol] 8.8 g/dL Low 13.0 - 17.0 g/dL [facility] Interpretation and review of laboratory results Abnormal [facility] Hematocrit (Bld) [Volume fraction] 26.8 % Low 39 - 49 % [facility] Hemoglobin (Bld) [Mass/Vol] 9.4 g/dL Low 13.0 - 17.0 g/dL [facility] Interpretation and review of laboratory results Abnormal [facility] Hematocrit (Bld) [Volume fraction] 24.1 % Low 39 - 49 % [facility] Hemoglobin (Bld) [Mass/Vol] 7.9 g/dL Low 13.0 - 17.0 g/dL [facility] Interpretation and review of laboratory results Abnormal [facility] Ionized calciumon 06-29-2024 Calcium.ionized (Bld) [Mass/Vol] 4.5 mg/dL 4.5 - 5.3 mg/dL [facility] Ionized magnesiumon 06-29-19 25 Magnesium Ionized ISE (Bld) [Moles/Vol] 0.52 mmol/L 0.45 - 0.74 mmol/L [facility] Comment on above: NEW REFERENCE RANGE LIPASEon 06-29-2024 Lipase [Catalytic activity/Vol] 8 U/L Low 11-82 [facility] Comment on above: Performed By: #### C BCA, 5643-2, 1798-8, CMP, 3040-3, 52954-2, PINR, 18148-0 #### [facility] ([id number]) [address] [place] [address] Lactate (P rosanne) [Moles/Vol]o n 06-29-2024 [facility] LACTATE W/REFLEX 0.7 mmol/L Normal 0.4-2.0 [facility] Comment on above: Result Comment: Result did not trigger repeat Lactate, re-order if needed. Performed By: #### I 8XCA #### [facility] ([id number]) [address] [place] [address] Lactate w/ Reflexon 06-29-19 25 Lactate (P rosanne) [Moles/Vol] 0.7 mmol/L 0.4 - 2.0 mmol/L [facility] Comment on above: Result did not trigger repeat Lactate, re-order if needed. Lipaseon 06-29-2024 Lipase [Catalytic activity/Vol] 8 U/L Low 11 - 82 U/L [facility] Magnesium Ionized ISE (Bld) [Moles/Vol]on 06-29-2024 Magnesium [Moles/Vol] 0.52 mmol/L Normal 0.45-0.74 [facility] Comment on above: Result Comment: NEW REFERENCE RANGE Performed By: #### I 8XCA #### [facility] ([id number]) [address] [place] [address] Natriuretic peptide B [Mass/ Vol]on 06-29-2024 Interpretation and review of laboratory results Abnormal [facility] Natriuretic peptide B (Bld) [Mass/Vol] 224 pg/mL High NINF - 100.0 pg/mL [facility] Natriuretic peptide B (Bld) [Mass/Vol] 224 pg/mL High <100.0 [facility] Comment on above: Performed By: #### I 8XCA #### [facility] ([id number]) [address] [place] [address] No Panel Informationon 06-29 [facility] BB Type Barcode 5100 [facility] Blood component type [id number] [facility] Expiration Date [facility] [place] Status of unit /RELEASED [facility] Unit ABO O [facility] Unit RH Positive [facility] BB Type Barcode 5100 [facility] Blood component type [id number] [facility] Expiration Date [facility] [place] Status of unit ISSUED [facility] Unit ABO O [facility] Unit RH Positive [facility] Interpretation and review of laboratory results Abnormal [facility] Interpretation and review of laboratory results Abnormal [facility] PHOSPHORUSon 06-29-2024 Phosphate [Mass/Vol] 3.3 mg/dL Normal 2.4-4.9 [facility] Comment on above: Performed By: #### I 8XCA #### [facility] ([id number]) [address] [place] [address] PLATELET FUNCTIONon 06-29-19 25 COLLAGEN/ADP 162 sec High 0-114 [facility] Comment on above: Performed By: #### C BCA, 5643-2, 1798-8, CMP, 3040-3, 82533-9, PINR, 46374-4 #### [facility] ([id number]) [address], [address] [place] [address] COLLAGEN/EPINEPHRINE 116 sec Normal 0-179 [facility] Comment on above: Performed By: #### C BCA, 5643-2, 1798-8, CMP, 3040-3, 04137-2, PINR, 56483-3 #### [facility] ([id number]) [address], [address] [place] [address] PFA INTERP This pattern is most commonly seen in patients Normal [facility] Comment on above: Result Comment: with von Willebrand disease or congenital platelet defects. However, thrombocytopenia (platelet count <100,000), anemia(HCT<30%), cardiovascular or renal disease may give abnormal results not related to an inherent platelet function abnormality. Futher platelet function studies may be indicated. Performed By: #### C BCA, 5643-2, 1798-8, CMP, 3040-3, 39836-5, PINR, 84883-9 #### [facility] ([id number]) [address], [address] [place] [address] POC CHEM7 W/ HCTon 5 Chloride [Moles/Vol] 107 mmol/L Normal 98-109 [facility] Comment on above: Performed By: #### I 8XCA #### [facility] ([id number]) [address] [place] [address] CO2 [Moles/Vol] 21 mmol/L Low 22-32 [facility] Comment on above: Performed By: #### I 8XCA #### [facility] ([id number]) [address] [place] [address] Creatinine [Mass/Vol] 1.7 mg/dL High 0.7-1.2 [facility] Comment on above: Result Comment: METH OD TRACEABLE TO IDMS STANDARD Performed By: #### I 8XCA #### [facility] ([id number]) [address] [place] [address] GFR/1.73 sq M.predicted among non-blacks MDRD (S/P/Bld) [Vol rate/Area] 41 mL/min/{1.73_m2} Low >59 [facility] Comment on above: Result Comment: Reported eGFR is based on the CKD-EPI 2020 equation that does not use a race coefficient. Performed By: #### I 8XCA #### [facility] ([id number]) [address] [place] [address] Glucose [Mass/Vol] 103 mg/dL High 65-99 [facility] Comment on above: Performed By: #### I 8XCA #### [facility] ([id number]) [address] [place] [address] Hematocrit (Bld) [Volume fraction] 20 % Low 39-49 [facility] Comment on above: Performed By: #### I 8XCA #### [facility] ([id number]) [address] [place] [address] Potassium [Moles/Vol] 3.5 mmol/L Normal 3.5-5.0 [facility] Comment on above: Performed By: #### I 8XCA #### [facility] ([id number]) [address] [place] [address] Sodium [Moles/Vol] 143 mmol/L Normal 134-146 [facility] Comment on above: Performed By: #### I 8XCA #### [facility] ([id number]) [address] [place] [address] Urea nitrogen [Mass/Vol] 14 mg/dL Normal 6-27 [facility] Comment on above: Performed By: #### I 8XCA #### [facility] ([id number]) [address] [place] [address] POCT Electrolytes w/ BUN, Cr eat, Gluc, Hematocriton 06-29-2024 Chloride [Moles/Vol] 107 mmol/L 98 - 10 9 mmol/L [facility] CO2 [Moles/Vol] 21 mmol/L Low 22 - 32 mmol/L [facility] Creatinine [Mass/Vol] 1.7 mg/dL High 0.7 - 1.2 mg/dL [facility] Comment on above: METHOD TRACEABLE TO [facility] STANDARD eGFR (CKD-EPI)non-race dependent 41 Low - PINF [facility] Comment on above: Reported eGFR is based on the CKD-EPI 2020 equation that does not use a race coefficient. Glucose [Mass/Vol] 103 mg/dL High 65 - 99 mg/dL [facility] Hematocrit (Bld) [Volume fraction] 20 % Low 39 - 49 % [facility] Interpretation and review of laboratory results Abnormal [facility] Potassium [Moles/Vol] 3.5 mmol/L 3.5 - 5.0 mmol/L [facility] Sodium [Moles/Vol] 143 mmol/L 134 - 146 mmol/L [facility] Urea nitrogen [Mass/Vol] 14 mg/dL 6 - 27 mg/dL [facility] PROTIME AND INRon 06-29-2024 INR Coag (PPP) [Relative time] 1.6 {INR} High 0.8-1.1 [facility] Comment on above: Performed By: #### C BCA, 5643-2, 1798-8, CMP, 3040-3, 60412-3, PINR, 73591-1 #### [facility] ([id number]) [address] [place] [address] PT Coag (PPP) [Time] 18.1 s High 9.8-13.2 [facility] Comment on above: Performed By: #### C BCA, 5643-2, 1798-8, CMP, 3040-3, 56818-9, PINR, 75664-0 #### [facility] ([id number]) [address] [place] [address] Phosphoruson 06-29-2024 Phosphate [Mass/Vol] 3.3 mg/dL 2.4 - 4 .9 mg/dL [facility] Platelet function teston Interpretation and review of laboratory results Abnormal [facility] Platelet function (closure time) collagen+ADP induced (Bld) [Time] 162 High [facility] Platelet function (closure time) collagen+EPINEPHrine induced (Bld) [Time] 116 [facility] Platelet function (closure time) Renaldo (Bld) [Interp] This pattern is most commonly seen in patients [facility] Comment on above: with von Willebrand disease or congenital platelet defects. However, thrombocytopenia (platelet count <100,000), anemia(HCT<30%), cardiovascular or renal disease may give abnormal results not related to an inherent platelet function abnormality. Futher platelet function studies may be indicated. [facility] Protime & INRon 06-29-2024 INR Coag (PPP) [Relative time] 1.6 {INR} High [facility] PT Coag (PPP) [Time] 18.1 s High [facility] Type and screen(includes ind irect zoie)on 06-29-2024 ABO A [facility] Rh Nom (Bld) Positive [facility] URINALYSISon 06-29-2024 Bilirubin Ql (U) Negative Normal NEG [facility] Comment on above: Performed By: #### I 8XCA #### [facility] ([id number]) [address] [place] [address] BLOOD/HGB Large Abnormal NEG [facility] Comment on above: Performed By: #### I 8XCA #### [facility] ([id number]) [address] [place] [address] Color (U) ALISSA Abnormal YELLOW [facility] Comment on above: Performed By: #### I 8XCA #### [facility] ([id number]) [address] [place] [address] Glucose Ql (U) >1000 Abnormal NEG [facility] Comment on above: Performed By: #### I 8XCA #### [facility] ([id number]) [address] [place] [address] Ketones Ql (U) Negative Normal NEG [facility] Comment on above: Performed By: #### I 8XCA #### [facility] ([id number]) [address] [place] [address] Leukocyte esterase Test strip Ql (U) Negative Normal NEG [facility] Comment on above: Result Comment: HIGH CONCENTRATIONS OF GLUCOSE MAY DECREASE THE REACTIVITY OF THE DIPSTICK LEUKOCYTE TEST PAD. Performed By: #### I 8XCA #### [facility] ([id number]) [address] [place] [address] MUCOUS PRESENT Abnormal NONE [facility] Comment on above: Performed By: #### I 8XCA #### [facility] ([id number]) [address] [place] [address] Nitrite Ql (U) Negative Normal NEG [facility] Comment on above: Performed By: #### I 8XCA #### [facility] ([id number]) [address] [place] [address] pH (U) 5.5 [pH] Normal 5.0-8.5 [facility] Comment on above: Performed By: #### I 8XCA #### [facility] ([id number]) [address] [place] [address] Protein Ql (U) 50 mg/dL Abnormal NEG [facility] Comment on above: Performed By: #### I 8XCA #### [facility] ([id number]) [address] [place] [address] R.B.CELLS >720 High 0-5 [facility] Comment on above: Performed By: #### I 8XCA #### [facility] ([id number]) [address] [place] [address] Specific gravity (U) [Rel density] 1.015 Normal 1.003-1.03 5 [facility] Comment on above: Performed By: #### I 8XCA #### [facility] ([id number]) [address] [place] [address] SQUAMOUS EPITHELIUM 1 /hpf Normal 0-5 [facility] Comment on above: Performed By: #### I 8XCA #### [facility] ([id number]) [address] [place] [address] TURBIDITY CLEAR Normal CLEAR [facility] Comment on above: Performed By: #### I 8XCA #### [facility] ([id number]) [address] [place] [address] Urinalysis dipstick W Reflex Microscopic panel (U) URINE RECEIVED WITHOUT PRESERVATIVE-DELAYS IN TRANSPORT MAY AFFECT RESULTS.INTERPRET WITH CAUTION AND CLINICAL CORRELATION IS RECOMMENDED. Normal [facility] Comment on above: Performed By: #### I 8XCA #### [facility] ([id number]) [address] [place] [address] Urobilinogen (U) [Mass/Vol] mg/dL Normal <1.1 [facility] Comment on above: Performed By: #### I 8XCA #### [facility] ([id number]) [address] [place] [address] W.B.CELLS 2 /hpf Normal 0-5 [facility] Comment on above: Performed By: #### I 8XCA #### [facility] ([id number]) [address] [place] [address] URINE CULTUREon 06-29-2024 Bacteria identified Cx Nom (U) SPECIMEN NOTES URINE RECEIVED WITHOUT PRESERVATIVE CULTURE RESULTS NO GROWTH AT <1000 CFU/mL Normal [facility] Comment on above: Performed By: #### C BCA, 5643-2, 1798-8, CMP, 3040-3, 86197-3, PINR, 07506-1 #### [facility] ([id number]) [address], [address] [place] [address] Urinalysison 06-29-2024 Bilirubin Ql (U) Negative Negative^N egative [facility] Color (U) ALISSA Abnormal YELLOW^YEL LOW [facility] Epithelial cells Auto (Urine sed) [#/Area] 1 [facility] Glucose (U) [Mass/Vol] mg/dL Abnormal Negat gabriela^N egative mg/dL [facility] Hemoglobin Auto test strip Ql (U) Large Abnormal Negative^N egative [facility] Interpretation and review of laboratory results Abnormal [facility] Ketones (U) [Mass/Vol] Negative Negat gabriela^N egative mg/dL [facility] Leukocyte esterase Auto test strip Ql (U) Negative Negative^N egative [facility] Comment on above: HIGH CONCENTRATIONS OF GLUCOSE MAY DECREASE THE REACTIVITY OF THE DIPSTICK LEUKOCYTE TEST PAD. Mucus Ql (Urine sed) PRESENT Abnormal NONE^NONE [facility] Nitrite Auto test strip Ql (U) Negative Negative^N egative [facility] pH (U) 5.5 [pH] 5.0 - 8.5 [facility] Protein (U) [Mass/Vol] 50 mg/dL Abnormal Negat gabriela^N egative [facility] RBC Auto (Urine sed) [#/Area] High [facility] Specific gravity Refractometry automated (U) [Rel density] 1.015 1.003 - 1.035 [facility] Turbidity Ql (U) CLEAR CLEAR^OMI R [facility] Urinalysis microscopic panel Auto (Urine sed) [#/Area] URINE RECEIVED WITHOUT PRESERVATIVE-DELAYS IN TRANSPORT MAY AFFECT RESULTS.INTERPRET WITH CAUTION AND CLINICAL CORRELATION IS RECOMMENDED. [facility] Urobilinogen Qn (U) NINF [facility] WBC Auto (Urine sed) [#/Area] 2 [facility] XR CHEST 1 VWon 06-29-2024 XR [...] Ricardo Cueto MD on 06/29/2024 1:47 AM [facility] XR Chest Single viewon 06-29 HISTORY: Pain, [...] No acute abnormality. 7 Finalized by Ricardo Cuteo MD on 06/29/2024 1:47 AM [facility] Radiology Study observation (narrative) [facility] XR Chest Single viewOrdered By: Ricardo Cueto on 06-29-2024 [facility] Work Phone: aPTT Coag (PPP) [Time]on aPTT Coag (Bld) [Time] 33 s Normal 26-37 [facility] Comment on above: Performed By: #### C BCA, 5643-2, 1798-8, CMP, 3040-3, 27582-1, PINR, 78814-3 #### [facility] ([id number]) [address], [address] [place] [address] BLOOD CULTUREon 06-28-2024 Bacteria identified Aer cx Nom (Bld) CULTURE RESULTS NO GROWTH 5 DAYS Normal [facility] Bacteria identified Aer cx Nom (Bld) CULTURE RESULTS NO GROWTH 5 DAYS Normal [facility] CBC AND AUTO DIFFon 06-28-19 25 ABSOLUTE BASOPHIL 0.0 X10E9/L Normal 0.0-0.2 [facility] Comment on above: Performed By: #### C BCA, PINR, 84587-3, CMP, 34362-6, 20373-1 #### [facility] ([id number]) [address] [place] [address] 31254 #### 24603-0 #### [facility] ([id number]) [address] [place] [address] ABSOLUTE NEUTROPHIL 12.3 X10E9/L High 1.5-6.6 [facility] Comment on above: Performed By: #### C BCA, PINR, 07911-2, CMP, 45749-4, 04018-7 #### [facility] ([id number]) [address] [place] [address] 69794 #### 78903-8 #### [facility] ([id number]) [address] [place] [address] Basophils/100 WBC (Bld) 0.3 % Normal P [facility] Comment on above: Performed By: #### C BCA, PINR, 17346-8, CMP, 84555-9, 87729-2 #### [facility] ([id number]) [address] [place] [address] 35001 #### 06044-2 #### [facility] ([id number]) [address], [address] [place] [address] Eosinophils (Bld) [#/Vol] 0.0 10*3/uL Normal 0.0-0.4 [facility] Comment on above: Performed By: #### C BCA, PINR, 90620-4, CMP, 57418-7, 53603-0 #### [facility] ([id number]) [address] [place] [address] 06710 #### 22176-6 #### [facility] ([id number]) [address] [place] [address] Eosinophils/100 WBC (Bld) 0.1 % Normal [facility] Comment on above: Performed By: #### C BCA, PINR, 64944-8, CMP, 13839-4, 44324-1 #### [facility] ([id number]) [address] [place] [address] 24136 #### 58014-3 #### [facility] ([id number]) [address], [address] [place] [address] Erythrocyte distribution width (RBC) [Ratio] 15.0 % Normal 11.5-15.0 [facility] Comment on above: Performed By: #### C BCA, PINR, 94394-5, CMP, 70514-7, 05891-5 #### [facility] ([id number]) [address] [place] [address] 63676 #### 34813-9 #### [facility] ([id number]) [address], [address] [place] [address] Hematocrit (Bld) [Volume fraction] 25.7 % Low 39-49 [facility] Comment on above: Performed By: #### C BCA, PINR, 43259-3, CMP, 34434-3, 11796-5 #### [facility] ([id number]) [address] [place] [address] 79921 #### 68776-4 #### [facility] ([id number]) [address], [address] [place] [address] Hemoglobin (Bld) [Mass/Vol] 8.6 g/dL Low 13.0-17.0 [facility] Comment on above: Performed By: #### C BCA, PINR, 45740-5, CMP, 48725-7, 88382-0 #### [facility] ([id number]) [address] [place] [address] 60153 #### 49546-1 #### [facility] ([id number]) [address], [address] [place] [address] Lymphocytes (Bld) [#/Vol] 0.5 10*3/uL Low 1.0-3.5 [facility] Comment on above: Performed By: #### C BCA, PINR, 49433-4, CMP, 16804-1, 72878-4 #### [facility] ([id number]) [address] [place] [address] 25758 #### 41257-4 #### [facility] ([id number]) [address], [address] [place] [address] Lymphocytes/100 WBC (Bld) 3.3 % Normal [facility] Comment on above: Performed By: #### C BCA, PINR, 60243-5, CMP, 00214-0, 93500-8 #### [facility] ([id number]) [address] [place] [address] 73615 #### 58707-1 #### [facility] ([id number]) [address], [address] [place] [address] MCH (RBC) [Entitic mass] 31.4 pg Normal 27-34 [facility] Comment on above: Performed By: #### C BCA, PINR, 55309-0, CMP, 52481-1, 68386-9 #### [facility] ([id number]) [address] [place] [address] 23927 #### 59094-1 #### [facility] ([id number]) [address], [address] [place] [address] MCHC (RBC) [Mass/Vol] 33.6 g/dL Normal 32-36 [facility] Comment on above: Performed By: #### C BCA, PINR, 77612-2, CMP, 88879-6, 87609-8 #### [facility] ([id number]) [address] [place] [address] 73634 #### 04413-8 #### [facility] ([id number]) [address], [address] [place] [address] MCV (RBC) [Entitic vol] 94 fL Normal 80-100 P [facility] Comment on above: Performed By: #### C BCA, PINR, 05794-0, CMP, 74147-4, 73217-8 #### [facility] ([id number]) [address] [place] [address] 73254 #### 90067-4 #### [facility] ([id number]) [address], [address] [place] [address] Monocytes (Bld) [#/Vol] 1.0 10*3/uL High 0-0.9 [facility] Comment on above: Performed By: #### C BCA, PINR, 42396-2, CMP, 83667-2, 46400-0 #### [facility] ([id number]) [address] [place] [address] 07526 #### 26369-8 #### [facility] ([id number]) [address], [address] [place] [address] Monocytes/100 WBC (Bld) 7.4 % Normal [facility] Comment on above: Performed By: #### C BCA, PINR, 70572-9, CMP, 58283-0, 35323-6 #### [facility] ([id number]) [address] [place] [address] 00371 #### 13665-9 #### [facility] ([id number]) [address], [address] [place] [address] Neutrophils/100 WBC (Bld) 88.9 % Normal [facility] Comment on above: Performed By: #### C BCA, PINR, 85400-0, CMP, 29394-5, 46092-2 #### [facility] ([id number]) [address] [place] [address] 82244 #### 21958-4 #### [facility] ([id number]) [address], [address] [place] [address] Platelet mean volume (Bld) [Entitic vol] 9.3 fL Normal 7-12 [facility] Comment on above: Performed By: #### C BCA, PINR, 48718-7, CMP, 13332-1, 27950-8 #### [facility] ([id number]) [address] [place] [address] 09140 #### 32924-0 #### [facility] ([id number]) [address], [address] [place] [address] Platelets (Bld) [#/Vol] 252 10*3/uL Normal 150-450 [facility] Comment on above: Performed By: #### C BCA, PINR, 13807-6, CMP, 32508-4, 68911-4 #### [facility] ([id number]) [address] [place] [address] 40299 #### 23080-7 #### [facility] ([id number]) [address], [address] [place] [address] RBC COUNT 2.74 X10E12/L Low 4.10-5.70 [facility] Comment on above: Performed By: #### C BCA, PINR, 75679-2, CMP, 24472-2, 77295-3 #### [facility] ([id number]) [address] [place] [address] 32034 #### 01688-5 #### [facility] ([id number]) [address], [address] [place] [address] WBC (Bld) [#/Vol] 13.8 10*3/uL High 4.0-11.0 [facility] Comment on above: Performed By: #### C BCA, PINR, 53727-0, CMP, 84005-4, 45467-9 #### [facility] ([id number]) [address] [place] [address] 45342 #### 71642-9 #### [facility] ([id number]) [address], [address] [place] [address] COMPREHENSIVE METABOLIC PANE Larry 06-28-2024 Albumin [Mass/Vol] 2.6 g/dL Low 3.2-5.3 [facility] Comment on above: Performed By: #### C BCA, PINR, 66633-7, CMP, 65750-9, 08854-8 #### [facility] ([id number]) [address] [place] [address] 22550 #### 92907-5 #### [facility] ([id number]) [address], [address] [place] [address] ALP [Catalytic activity/Vol] 70 U/L Normal 39-130 [facility] Comment on above: Performed By: #### C BCA, PINR, 77315-2, CMP, 03389-6, 47921-9 #### [facility] ([id number]) [address] [place] [address] 44844 #### 88942-9 #### [facility] ([id number]) [address] [place] [address] ALT [Catalytic activity/Vol] 16 U/L Normal 0-40 [facility] Comment on above: Performed By: #### C BCA, PINR, 95409-8, CMP, 81405-6, 49543-6 #### [facility] ([id number]) [address] [place] [address] 48674 #### 24911-1 #### [facility] ([id number]) [address], [address] [place] [address] Anion gap [Moles/Vol] 6 mmol/L Normal 5-15 [facility] Comment on above: Performed By: #### C BCA, PINR, 85605-7, CMP, 63010-6, 72803-6 #### [facility] ([id number]) [address] [place] [address] 73567 #### 00730-4 #### [facility] ([id number]) [address], [address] [place] [address] AST [Catalytic activity/Vol] 25 U/L Normal 0-41 [facility] Comment on above: Performed By: #### C BCA, PINR, 87185-4, CMP, 88673-2, 06226-0 #### [facility] ([id number]) [address] [place] [address] 18818 #### 32929-6 #### [facility] ([id number]) [address], [address] [place] [address] Bilirubin [Mass/Vol] 1.7 mg/dL High 0.3-1.2 [facility] Comment on above: Performed By: #### C BCA, PINR, 65981-9, CMP, 55305-6, 27347-8 #### [facility] ([id number]) [address] [place] [address] 35336 #### 34446-9 #### [facility] ([id number]) [address], [address] [place] [address] Calcium [Mass/Vol] 8.1 mg/dL Low 8.5-10.5 [facility] Comment on above: Performed By: #### C BCA, PINR, 39280-6, CMP, 61799-6, 02265-2 #### [facility] ([id number]) [address] [place] [address] 06738 #### 25053-8 #### [facility] ([id number]) [address], [address] [place] [address] Chloride [Moles/Vol] 108 mmol/L Normal 98-109 [facility] Comment on above: Performed By: #### C BCA, PINR, 62569-2, CMP, 25986-7, 94803-1 #### [facility] ([id number]) [address] [place] [address] 22636 #### 12260-0 #### [facility] ([id number]) [address], [address] [place] [address] CO2 [Moles/Vol] 23 mmol/L Normal 22-32 [facility] Comment on above: Performed By: #### C BCA, PINR, 03023-7, CMP, 42186-7, 11346-1 #### [facility] ([id number]) [address] [place] [address] 26402 #### 25510-3 #### [facility] ([id number]) [address], [address] [place] [address] Creatinine [Mass/Vol] 1.90 mg/dL High 0.70-1.20 [facility] Comment on above: Result Comment: METH OD TRACEABLE TO IDMS STANDARD Performed By: #### C BCA, PINR, 75869-6, CMP, 44801-2, 80476-9 #### [facility] ([id number]) [address] [place] [address] 65493 #### 25338-8 #### [facility] ([id number]) [address], [address] [place] [address] GFR/1.73 sq M.predicted among non-blacks MDRD (S/P/Bld) [Vol rate/Area] 36 mL/min/{1.73_m2} Low >59 [facility] Comment on above: Result Comment: Reported eGFR is based on the CKD-EPI 2020 equation that does not use a race coefficient. Performed By: #### C BCA, PINR, 24990-7, CMP, 37392-5, 84898-6 #### [facility] ([id number]) [address] [place] [address] 69779 #### 13733-7 #### [facility] ([id number]) [address], [address] [place] [address] Glucose [Mass/Vol] 137 mg/dL High 65-99 [facility] Comment on above: Performed By: #### C BCA, PINR, 54750-1, CMP, 44046-1, 02952-6 #### [facility] ([id number]) [address] [place] [address] 24576 #### 14410-2 #### [facility] ([id number]) [address], [address] [place] [address] Potassium [Moles/Vol] 3.8 mmol/L Normal 3.5-5.0 [facility] Comment on above: Performed By: #### C BCA, PINR, 86594-2, CMP, 48987-8, 03139-5 #### [facility] ([id number]) [address] [place] [address] 01509 #### 05917-3 #### [facility] ([id number]) [address] [place] [address] Protein [Mass/Vol] 6.1 g/dL Normal 6.0-8.0 [facility] Comment on above: Performed By: #### C BCA, PINR, 43132-8, CMP, 19705-2, 96081-1 #### [facility] ([id number]) [address] [place] [address] 78197 #### 47718-5 #### [facility] ([id number]) [address] [place] [address] Sodium [Moles/Vol] 137 mmol/L Normal 134-146 [facility] Comment on above: Performed By: #### C BCA, PINR, 49929-5, CMP, 32933-2, 09991-8 #### [facility] ([id number]) [address] [place] [address] 06808 #### 49717-4 #### [facility] ([id number]) [address], [address] [place] [address] Urea nitrogen [Mass/Vol] 20 mg/dL Normal 5-27 [facility] Comment on above: Performed By: #### C BCA, PINR, 03999-7, CMP, 37081-9, 41207-9 #### [facility] ([id number]) [address] [place] [address] #### 66333-8 #### [facility] ([id number]) [address] [place] [address] CT ABDOMEN AND PELVIS W CONT on [...] Alexander MD on 06/28/2024 8:54 PM Normal [facility] CT BRAIN WO CONTon CT BRAIN [...] Alexander MD on 06/28/2024 8:37 PM Normal [facility] CT CERVICAL SPINE WO CONTon 06-28-2024 [...] Alexander MD on 06/28/2024 8:39 PM Normal [facility] CT FACIAL BONES WO CONTon CT [...] Alexander MD on 06/28/2024 8:41 PM Normal [facility] Fibrinogen Coagulation.deriv ed (PPP) [Mass/Vol]on 06-28-2024 FIBRINOGEN 644 mg/dL High 190-480 [facility] Comment on above: Performed By: #### P INR, 34594-0 #### [facility] ([id number]) [address] [place] [address] 44150 #### CBCA, CMP #### [facility] ([id number]) [address], [address] [place] [address] HEMOGLOBINon 06-28-2024 Hemoglobin (Bld) [Mass/Vol] 7.9 g/dL Low 13.0-17.0 [facility] Comment on above: Performed By: #### P INR, 14565-5 #### [facility] ([id number]) [address] [place] [address] 06062 #### CBCA, CMP #### [facility] ([id number]) [address] [place] [address] Hematocrit Auto (Bld) [Volum e fraction]on 06-28-2024 Hematocrit (Bld) [Volume fraction] 23.3 % Low 39-49 [facility] Comment on above: Performed By: #### P INR, 59627-3 #### [facility] ([id number]) [address] [place] [address] 51003 #### CBCA, CMP #### [facility] ([id number]) [address] [place] [address] Lactate (P rosanne) [Moles/Vol]o n 06-28-2024 LACTATE W/REFLEX 1.6 mmol/L Normal 0.4-2.0 [facility] Comment on above: Result Comment: Result did not trigger repeat Lactate, re-order if needed. Performed By: #### P INR, 61498-6 #### [facility] ([id number]) [address] [place] [address] 78266 #### CBCA, CMP #### [facility] ([id number]) [address] [place] [address] MAGNESIUMon 06-28-2024 Magnesium [Mass/Vol] 1.9 mg/dL Normal 1.8-2.6 [facility] Comment on above: Performed By: #### C BCA, PINR, 67326-5, CMP, 46574-6, 03996-1 #### [facility] ([id number]) [address] [place] [address] 39437 #### 30499-0 #### [facility] ([id number]) [address], [address] [place] [address] PROTIME AND INRon 06-28-2024 INR Coag (PPP) [Relative time] 1.7 {INR} High 0.8-1.1 [facility] Comment on above: Performed By: #### P INR, 85014-2 #### [facility] ([id number]) [address] [place] [address] 62758 #### CBCA, CMP #### [facility] ([id number]) [address], [address] [place] [address] PT Coag (PPP) [Time] 18.9 s High 9.8-13.2 [facility] Comment on above: Result Comment: NEW REFERENCE RANGE Performed By: #### P INR, 96342-3 #### [facility] ([id number]) [address] [place] [address] 19012 #### CBCA, CMP #### [facility] ([id number]) [address], [address] [place] [address] INR Coag (PPP) [Relative time] 3.1 {INR} High 0.8-1.1 [facility] Comment on above: Performed By: #### C BCA, PINR, 92760-9, CMP, 86444-3, 97607-2 #### [facility] ([id number]) [address] [place] [address] 55143 #### 73640-6 #### [facility] ([id number]) [address], [address] [place] [address] PT Coag (PPP) [Time] 34.3 s High 9.8-13.2 [facility] Comment on above: Result Comment: NEW REFERENCE RANGE Performed By: #### C BCA, PINR, 19061-8, CMP, 73789-5, 16018-1 #### [facility] ([id number]) [address] [place] [address] 05749 #### 90873-3 #### [facility] ([id number]) [address] [place] [address] Procalcitonin IA [Mass/Vol]o n 06-28-2024 PROCALCITONIN 0.33 ng/mL High <0.05 [facility] Comment on above: Result Comment: NOTE <0.50 ng/mL - Low risk of severe sepsis and/or septic shock. <2.00 ng/mL - Recommend retesting within 6-24 hours. >2.00 ng/mL - High risk of sepsis and/or septic shock. Performed By: #### C BCA, PINR, 07839-0, CMP, 79067-3, 01239-0 #### [facility] ([id number]) [address] [place] [address] #### 48645-6 #### [facility] ([id number]) [address] [place] [address], [address] [place] [address] SARS/FLU A+B/RSV by NAAT/Mol ecularon 06-28-2024 SARS/FLU [...] operators who are performing tests using either GeneFlypeeps DX or ShelfX systems and is limited to laboratories that [...] repeat. Fact Sheet for Healthcare Providers: https://www.fda.gov /media/920645/downl oad Fact Sheet for Patients: https://www.fda.gov /media/354839/downl oad Normal [facility] Comment on above: Performed By: #### P INR, 84983-4 #### [facility] ([id number]) [address] [place] [address] 68306 #### CBCA, CMP #### [facility] ([id number]) [address], [address] [place] [address] URINALYSISon 06-28-2024 Bilirubin Ql (U) Negative Normal NEG [facility] Comment on above: Performed By: #### P INR, 25224-5 #### [facility] ([id number]) [address] [place] [address] 44949 #### CBCA, CMP #### [facility] ([id number]) [address], [address] [place] [address] BLOOD/HGB Large Abnormal NEG [facility] Comment on above: Performed By: #### P INR, 13934-7 #### [facility] ([id number]) [address] [place] [address] 99638 #### CBCA, CMP #### [facility] ([id number]) [address] [place] [address] Color (U) ALISSA Abnormal YELLOW [facility] Comment on above: Performed By: #### P INR, 31146-8 #### [facility] ([id number]) [address] [place] [address] 60613 #### CBCA, CMP #### [facility] ([id number]) [address] [place] [address] Glucose Ql (U) >1000 Abnormal NEG [facility] Comment on above: Performed By: #### P INR, 26427-0 #### [facility] ([id number]) [address] [place] [address] 37840 #### CBCA, CMP #### [facility] ([id number]) [address] [place] [address] Ketones Ql (U) Negative Normal NEG [facility] Comment on above: Performed By: #### P INR, 27820-4 #### [facility] ([id number]) [address] [place] [address] 67752 #### CBCA, CMP #### [facility] ([id number]) [address] [place] [address] Leukocyte esterase Test strip Ql (U) Negative Normal NEG [facility] Comment on above: Result Comment: HIGH CONCENTRATIONS OF GLUCOSE MAY DECREASE THE REACTIVITY OF THE DIPSTICK LEUKOCYTE TEST PAD. Performed By: #### P INR, 22067-6 #### [facility] ([id number]) [address] [place] [address]689 #### CBCA, CMP #### [facility] ([id number]) [address], [address] [place] [address] Nitrite Ql (U) Negative Normal [facility] Comment on above: Performed By: #### P INR, 73790-8 #### [facility] ([id number]) [address] [place] [address]129 #### CBCA, CMP #### [facility] ([id number]) [address] [place] [address] pH (U) 6.0 [pH] Normal 5.0-8.5 [facility] Comment on above: Performed By: #### P INR, 20262-9 #### [facility] ([id number]) [address] [place] [address] 14797 #### CBCA, CMP #### [facility] ([id number]) [address], [address] [place] [address] Protein Ql (U) 100 mg/dL Abnormal NEG [facility] Comment on above: Performed By: #### P INR, 79974-8 #### [facility] ([id number]) [address] [place] [address]476 #### CBCA, CMP #### [facility] ([id number]) [address], [address] [place] [address] R.B.CELLS 10 /hpf High 0-5 [facility] Comment on above: Performed By: #### P INR, 71340-4 #### [facility] ([id number]) [address] [place] [address] 328[address] #### CBCA, CMP #### [facility] ([id number]) [address] [place] [address] Specific gravity (U) [Rel density] 1.015 Normal 1.003-1.03 5 [facility] Comment on above: Performed By: #### P INR, 57347-3 #### [facility] ([id number]) [address] [place] [address]206 #### CBCA, CMP #### [facility] ([id number]) [address], [address] [place] [address] TURBIDITY HAZY Abnormal CLEAR [facility] Comment on above: Performed By: #### P INR, 76520-6 #### [facility] ([id number]) [address] [place] [address]65 #### CBCA, CMP #### [facility] ([id number]) [address] [place] [address] Urobilinogen Qn (U) 0.2 {Liana'U}/dL Normal <1.1 [facility] Comment on above: Performed By: #### P INR, 25370-7 #### [facility] ([id number]) [address] [place] [address]20 #### CBCA, CMP #### [facility] ([id number]) [address] [place] [address] W.B.CELLS 0 /hpf Normal 0-5 [facility] Comment on above: Performed By: #### P INR, 68105-2 #### [facility] ([id number]) [address] [place] [address] #### CBCA, CMP #### [facility] ([id number]) [address], [address] [place] [address] URINE CULTUREon 06-28-2024 Bacteria identified Cx Nom (U) CULTURE RESULTS NO GROWTH AT <1000 CFU/mL Normal [facility] Comment on above: Performed By: #### P INR, 94786-3 #### [facility] ([id number]) [address] [place] [id number] #### CBCA, CMP #### [facility] ([id number]) [address], [address] [place] [address] aPTT Coag (PPP) [Time]on aPTT Coag (Bld) [Time] 40 s High 26-37 [facility] Comment on above: Result Comment: NEW REFERENCE RANGE Performed By: #### C BCA, PINR, 34572-9, CMP, 98443-7, 53625-5 #### [facility] ([id number]) [address], [place] [address] #### [id number] #### [facility] ([id number]) [address] [place] [address], [address] [place] [address] APTTon 06-26-2024 ACTIVATED PARTIAL THROMBOPLASTIN TIME IN PPP BY COAGULATION ASSAY 35.6 Seconds High 25.0-35.0 [facility] Comment on above: Result Comment: Clin ical significance of the APTT is questionable in the presence of heparin. Performed By: #### L [id number] ####[facility] ([facility])[address] [place] [address] B-TYPE NATRIURETIC PEPTIDEon 06-26-2024 Natriuretic peptide B (Bld) [Mass/Vol] 441 pg/mL High 0-100 [facility] Comment on above: Performed By: #### L [id number] ####[facility] ([facility])[address] [place] [address] CBC WITH AUTO DIFFERENTIALon 06-26-2024 Basophils (Bld) [#/Vol] 0.03 10*3/uL Normal 0.00-0.20 [facility] Comment on above: Performed By: #### L [id number] ####[facility] ([facility])[address] [place] [address] Basophils/100 WBC (Bld) 0.3 % Normal 0.0-1.0 [facility] Comment on above: Performed By: #### L [id number] ####[facility] [place] [address] Eosinophils (Bld) [#/Vol] 0.06 10*3/uL Normal 0.00-0.5 0 [facility] Comment on above: Performed By: #### L [id number] ####[facility] ([facility])[address] [place] [address] Eosinophils/100 WBC (Bld) 0.6 % Normal 0.0-6.0 [facility] Comment on above: Performed By: #### L [id number] ####[facility] [place] [address] Erythrocyte distribution width (RBC) [Ratio] 14.2 % Normal 11.5-15.[address] [facility] Comment on above: Performed By: #### L [id number] ####[facility] ([facility] [place] [address] ERYTHROCYTE MEAN CORPUSCULAR HEMOGLOBIN CONCENTRATION (G/DL) BY AUTOMATED 31.8 g/dL Low 32.0-35.0 [facility] Comment on above: Performed By: #### L [id number] ####[facility] [place] [address] Hematocrit (Bld) [Volume fraction] 34.3 % Low 39.0-55.0 [facility] Comment on above: Performed By: #### L [id number] ####[facility] ([facility])[address] [place] [address] Hemoglobin (Bld) [Mass/Vol] 10.9 g/dL Low 13.0-17.0 [facility] Comment on above: Performed By: #### L [id number] ####[facility] ([facility])[address] [place] [address] Immature granulocytes (Bld) [#/Vol] 0.08 10*3/uL Normal 0.00-0.20 [facility] Comment on above: Performed By: #### L [id number] ####[facility] ([facility])[address] [place] [address] Immature granulocytes/100 WBC (Bld) 0.8 % Normal 0.0-1.0 [facility] Comment on above: Performed By: #### L [id number] ####[facility] ([facility])[address] [place] [address] Lymphocytes (Bld) [#/Vol] 0.58 10*3/uL Low 1.20-4.0 0 [facility] Comment on above: Performed By: #### L [id number] ####[facility] ([facility])[address] [place] [address] Lymphocytes/100 WBC (Bld) 5.7 % Low 20.0-45.0 [facility] Comment on above: Performed By: #### L [id number] ####[facility] ([facility])[address] [place] [address] MCH (RBC) [Entitic mass] 30.9 pg Normal 27.0-33.0 [facility] Comment on above: Performed By: #### L [id number] ####[facility] ([facility])[address] [place] [address] MCV (RBC) [Entitic vol] 97.2 fL Normal 82.0-98.0 [facility] Comment on above: Performed By: #### L [id number] ####[facility] ([facility])[address] [place] [address] Monocytes (Bld) [#/Vol] 0.79 10*3/uL Normal 0.10-1.00 [facility] Comment on above: Performed By: #### L [id number] ####[facility] ([facility])[address] [place] [address] Monocytes/100 WBC (Bld) 7.8 % Normal 5.0-12.0 [facility] Comment on above: Performed By: #### L [id number] ####[facility] ([facility])[address] [place] [address] Neutrophils (Bld) [#/Vol] 8.64 10*3/uL High 1.60-7.6 0 [facility] Comment on above: Performed By: #### L [id number] ####[facility] [place] [address] Neutrophils/100 WBC (Bld) 84.8 % High 40.0-72.0 [facility] Comment on above: Performed By: #### L [id number] ####[facility] [place] [address] NRBC (PER 100 WBCS) BY AUTOMATED COUNT 0.0 % Normal 0 [facility] Comment on above: Performed By: #### L [id number] ####[facility] ([facility])[address] [place] [address] PLATELETS (10*3/UL) IN BLOOD AUTOMATED COUNT 191 10*3/uL Normal 150-400 [facility] Comment on above: Performed By: #### L [id number] ####[facility] ([facility])[address] [place] [address] RBC (Bld) [#/Vol] 3.53 10*6/uL Low 4.20-5.70 [facility] Comment on above: Performed By: #### L [id number] ####[facility] ([facility])[address] [place] [address] WBC (Bld) [#/Vol] 10.18 10*3/uL Normal 4.00-10.60 [facility] Comment on above: Performed By: #### L [id number] ####[facility] [place] [address] COMPREHENSIVE METABOLIC PANE Larry 06-26-2024 Albumin [Mass/Vol] 3.1 g/dL Low 3.5-5.7 [facility] Comment on above: Performed By: #### L [id number] ####[facility] [place] [address] ALP [Catalytic activity/Vol] 71 U/L Normal 34-104 [facility] Comment on above: Performed By: #### L [id number] ####[facility] ([facility] [place] [address] ALT [Catalytic activity/Vol] 16 U/L Normal 7-52 [facility] Comment on above: Performed By: #### L [id number] ####[facility] ([facility] [place] [address] Anion gap [Moles/Vol] 10 mmol/L Normal 7-20 [facility] Comment on above: Performed By: #### L [id number] ####[facility] ([facility])[address] [place] [address] AST [Catalytic activity/Vol] 23 U/L Normal 13-39 [facility] Comment on above: Performed By: #### L [id number] ####[facility] ([facility])[address] [place] [address] Bilirubin [Mass/Vol] 0.9 mg/dL Normal 0.3-1.0 [facility] Comment on above: Performed By: #### L [id number] ####[facility] ([facility])[address] [place] [address] Calcium [Mass/Vol] 8.1 mg/dL Low 8.6-10.3 [facility] Comment on above: Performed By: #### L [id number] ####[facility] ([facility])[address] [place] [address] Chloride [Moles/Vol] 108 mmol/L High 98-107 [facility] Comment on above: Performed By: #### L [id number] ####[facility] [place] [address] CO2 [Moles/Vol] 24 mmol/L Normal 21-31 [facility] Comment on above: Performed By: #### L [id number] ####[facility] [place] [address] Creatinine [Mass/Vol] 1.28 mg/dL Normal 0.70-1.30 [facility] Comment on above: Performed By: #### L [id number] ####[facility] [place] [address] GLOMERULAR FILTRATION RATE ML/MIN/1.73 SQ M.PREDICTED 57.3 mL/min/1.73m*2 Low >60.0 [facility] Comment on above: Result Comment: [facility]???s estimated glomerular filtration rate (eGFR) [...] of individuals. Performed By: #### L [id number] ####[facility] ([facility])[address] [place] [address] Glucose [Mass/Vol] 117 mg/dL High 70-100 [facility] Comment on above: Performed By: #### L [id number] ####[facility] ([facility])[address] [place] [address] Potassium [Moles/Vol] 3.6 mmol/L Normal 3.5-5.1 [facility] Comment on above: Performed By: #### L [id number] ####[facility] ([facility])[address] [place] [address] Protein [Mass/Vol] 5.6 g/dL Low 6.0-8.3 [facility] Comment on above: Performed By: #### L [id number] ####[facility] [place] [address] Sodium [Moles/Vol] 138 mmol/L Normal 136-145 [facility] Comment on above: Performed By: #### L [id number] ####[facility] ([facility] [place] [address] Urea nitrogen [Mass/Vol] 13 mg/dL Normal 7-25 [facility] Comment on above: Performed By: #### L [id number] ####[facility] [place] [address] UREA NITROGEN/CREATININE (MASS RATIO) IN SER/PLAS 10.2 Normal [facility] Comment on above: Performed By: #### L [id number] ####[facility] ([facility])[address] [place] [address] CONSULTon 06-26-2024 CONSULT Normal [facility] CT ABDOMEN PELVIS WO IV CONT RASTon 06-26-2024 CT ABDOMEN PELVIS WO IV CONTRAST Normal [facility] EDNURSon 06-26-2024 EDNURS Gown ,call light, warm blanket, urinal, labeled speci cup provided. Son with pt. Pt transfer self to stretcher from personal w/c with some difficulty Normal [facility] EDNURS Normal [facility] EDPROVon 06-26-2024 EDPROV Normal [facility] MAGNESIUMon 06-26-2024 Magnesium [Mass/Vol] 1.7 mg/dL Low 1.9-2.7 [facility] Comment on above: Performed By: #### L [id number] ####[facility] ([facility])[address] [place] [address] PROTIME-INRon 06-26-2024 INR IN PPP BY COAGULATION ASSAY 2.07 High 0.90-1.10 [facility] Comment on above: Result [...] CHEST 1995;108:231S-246S. Performed By: #### L [id number] ####[facility] ([facility])[address] [place] [address] PROTHROMBIN TIME (PT) IN PPP BY COAGULATION ASSAY 22.9 Seconds High 12.3-14.8 [facility] Comment on above: Performed By: #### L [id number] ####[facility] ([facility])[address] [place] [address] TROPONIN Ion 06-26-2024 Troponin I.cardiac [Mass/Vol] 0.01 ng/mL Normal 0.00-0.04 [facility] Comment on above: Performed By: #### L [id number] ####[facility] ([facility])[address] [place] [address] TYPE AND SCREENon 06-26-2024 AB SCREEN Negative Normal [facility] Comment on above: Performed By: #### L [id number] ####[facility] BLOOD [facility], ABO group Nom (Bld) A Normal [facility] Comment on above: Performed By: #### L [id number] ####[facility], RH TYPE IN BLOOD Positive Normal [facility] Comment on above: Performed By: #### L [id number] ####[facility], URINALYSIS MICROSCOPIC WITH REFLEX CULTUREon 06-26-2024 MUCUS (#/LPF) IN URINE SEDIMENT Occasional Normal None Seen, Occasional , Few [facility] Comment on above: Performed By: #### L [id number] ####[facility] [place] [address] RBC (#/HPF) IN URINE SEDIMENT >20 Abnormal None Seen, 0-2 [facility] Comment on above: Performed By: #### L [id number] ####[facility] ([facility])[address] [place] [address] SQUAMOUS EPITHELIAL CELLS (#/LPF) IN URINE SEDIMENT None Seen Normal None Seen, Occasional , Few [facility] Comment on above: Performed By: #### L [id number] ####[facility] ([facility])[address] [place] [address] WBC (LEUKOCYTE) (#/HPF) IN URINE SEDIMENT >50 Abnormal None Seen, 0-2 [facility] Comment on above: Performed By: #### L [id number] ####[facility] ([facility])[address] [place] [address] URINALYSIS WITH REFLEX CULTU REon 06-26-2024 BILIRUBIN, TOTAL PRESENCE IN URINE Negative Normal Negative [facility] Comment on above: Performed By: #### L [id number] ####[facility] ([facility])[address] [place] [address] Clarity (U) Cloudy Abnormal Clear [facility] Comment on above: Performed By: #### L [id number] ####[facility] ([facility])[address] [place] [address] Color (U) Dark-Yellow Abnormal Colorless, Yellow, Light-Placer ow [facility] Comment on above: Performed By: #### L [id number] ####[facility] ([facility])[address] [place] [address] Glucose (U) [Mass/Vol] mg/dL Abnormal Normal [facility] on above: Performed By: #### L [id number] ####[facility] ([facility])[address] [place] [address] HEMOGLOBIN PRESENCE IN URINE Large Abnormal Negative [facility] Comment on above: Performed By: #### L [id number] ####[facility] ([facility])[address] [place] [address] Ketones Ql (U) Negative Normal Negative [facility] Comment on above: Performed By: #### L [id number] ####[facility] ([facility])[address] [place] [address] LEUKOCYTE ESTERASE PRESENCE IN URINE BY TEST STRIP Large Abnormal Negative [facility] Comment on above: Performed By: #### L [id number] ####[facility] ([facility])[address] [place] [address] NITRITE PRESENCE IN URINE Negative Normal Negative [facility] Comment on above: Performed By: #### L [id number] ####[facility] ([facility])[address] [place] [address] pH (U) 6.5 [pH] Normal 5.0-8.0 [facility] Comment on above: Performed By: #### L [id number] ####[facility] ([facility])[address] [place] [address] Protein (U) [Mass/Vol] 30 mg/dL Abnormal Negative [facility] Comment on above: Performed By: #### L [id number] ####[facility] ([facility])[address] [place] [address] Specific gravity (U) [Rel density] 1.023 Normal 1.010-1.03 0 [facility] Comment on above: Performed By: #### L [id number] ####[facility] ([facility])[address] [place] [address] UROBILINOGEN (MG/DL) IN URINE 4.0 mg/dL Abnormal Normal [facility] Comment on above: Performed By: #### L [id number] ####[facility] ([facility])[address] [place] [address] URINE CULTURE, ROUTINEon Bacteria identified Cx Nom (U) No growth at 48 hours Normal [facility] Comment on above: Performed By: #### L [id number] ####[facility] ([facility])[address] [place] [address] ANESon 06-19-2024 ANES Normal [facility] ANES Normal [facility] DEVICE CULTUREon 06-19-2024 Bacteria identified Cx Nom (Unsp spec) No growth at [address] [facility] Comment on above: Order Comment: Pre-o p diagnosis:Kidney stones [N20.0] Performed By: #### D EVICE CULTURE ####[facility] ([facility])[address] [place] [address] HISTOLOGY - TISSUE EXAMon LAB AP ADDENDUM 1 Normal [facility] Comment on above: Order Comment: Pre-o p diagnosis:Kidney stones [N20.0] Result Comment: 06-16: This case was sent to the Urolithiasis Laboratory in [place], [place] for chemical analysis (please see accompanying report). ? Please see results below:Urolithiasis Results:No nidus observed in the specimenThe stone is composed of:?? Calcium oxalate monohydrate:? 100%Addendum electronically signed by Katy Pierre MD on 07/04/2024 at 11:38 AM Performed By: #### L [id number] ####[facility] ([facility])[address] [place] [address] LAB AP CASE REPORT Normal [facility] Comment on above: Order Comment: Pre-o p diagnosis:Kidney stones [N20.0] Result Comment: Surg ical Pathology Case: [id number] Provider: Tino Langston MD Collected: 06/19/2024 1004Ordering Location: [facility] Main Operating Room Received: 06/19/2024 1259Pathologist: JERONIMO Boydpecimen: Kidney, KIDNEY STONE FOR ANALYSIS Performed By: #### L [id number] ####[facility] ([facility])[address] [place] [address] LAB AP CLINICAL INFORMATION Normal [facility] Comment on above: Order Comment: Pre-o p diagnosis:Kidney stones [N20.0] Result Comment: Pre- op diagnosis:Kidney stones [N20.0] Performed By: #### L [id number] ####[facility] ([facility])[address] [place] [address] LAB AP GROSS DESCRIPTION A. Kidney. [facility] Comment on above: Order Comment: Pre-o p diagnosis:Kidney stones [N20.0] Result Comment: Part A is received fresh labeled Neptali Shiets and kidney stone for analysis . It consists of 2 irregular, wiggins-brown, firm calculi measuring 0.2 x 0.2 x 0.1 cm and 0.2 x 0.1 x 0.1 cm. The specimen is submitted to the Urolithiasis Lab in [place], [place] for chemical analysis.Carolina Adams, Pathologists' Filter Tip Inspector studentAyden Lawson, Pathologists' Filter Tip Inspector student Performed By: #### L [id number] ####[facility] ([facility])[address] [place] [address] LAB AP REPORT FINAL DIAGNOSIS NARRATIVE [facility] Comment on above: Order Comment: Pre-o p diagnosis:Kidney stones [N20.0] Result Comment: Shakeel montemayor, stone , removal: - Stone fragments for chemical analysis. Performed By: #### L [id number] ####[facility] ([facility])[address] [place] [address] HPon 06-19-2024 HP [facility] OPNOTEon 06-19-2024 OPNOTE [facility] POCT GLUCOSE METER UNSOLICIT ED RESULTSon 06-19-2024 Glucose [Mass/Vol] 84 mg/dL Normal 70-105 [facility] Comment on above: Order Comment: Waive d Testing in the ED is performed under the ED CLIA certificate #[id number]. Result Comment: jenc [email or web address] Performed By: #### L [id number] ####[facility] ([facility])[address] [place] [address] Orders Onlyon 06-18-2024 Orders Only [facility] Orders Onlyon 06-17-2024 Orders Only [facility] Orders Onlyon 05-29-2024 Orders Only [facility] ANESon 05-21-2024 ANES [facility] ANES [facility] HPon 05-21-2024 HP [facility] NURSNOTEon 05-21-2024 DC Spoke with Mehdi from [employer], he stated it is not necessary to interrogate patients pacemaker. Pt is 100% paced and capture AV paced with no issues noted. Dr Ashley notified. 1245 cont with no problems. Stable for DC home. Normal [facility] OPNOTEon 05-21-2024 OPNOTE [facility] Orders Onlyon 05-21-2024 Orders Only [facility] POCT GLUCOSE METER UNSOLICIT ED RESULTSon 05-21-2024 Glucose [Mass/Vol] 90 mg/dL Normal 70-105 [facility] Comment on above: Order Comment: Waive d Testing in the ED is performed under the ED CLIA certificate #[id number]. Result Comment: ngro phong Performed By: #### L [id number] ####[facility] ([facility])[address] [address] POCT PERFUSION PANEL UNSOLIC ITED RESULTSon 05-21-2024 CO2 [Moles/Vol] 27.0 mmol/L Normal 21.0-29.0 [facility] Comment on above: Performed By: #### L [id number] ####[facility] ([facility])[address] [address] Glucose [Mass/Vol] 96 mg/dL Normal 70-105 [facility] Comment on above: Performed By: #### L [id number] ####[facility] ([facility])[address] [place] [address] HCO3 (Bld) [Moles/Vol] 25.5 mmol/L Normal 23.0-28.0 [facility] Comment on above: Performed By: #### L [id number] ####[facility] ([facility])[address] [address] Hematocrit (Bld) [Volume fraction] 42 % Normal 38-51 [facility] Comment on above: Performed By: #### L [id number] ####[facility] ([facility])[address] [place] [address] Hemoglobin (Bld) [Mass/Vol] 14.3 g/dL Normal 12.0-17.0 [facility] Comment on above: Performed By: #### L [id number] ####[facility] ([facility])[address] [place] [place] [address] POCT BASE EXCESS -1.0 mmol/L Normal -2.0-3.0 [facility] Comment on above: Performed By: #### L [id number] ####[facility] ([facility])[address] [place] [address] POCT IONIZED CALCIUM 1.51 mmol/L High 1.12-1.32 [facility] Comment on above: Performed By: #### L [id number] ####[facility] ([facility])[address] [place] [place] [address] POCT PCO2 47.1 mmHg Normal 41.0-51.0 [facility] Comment on above: Performed By: #### L [id number] ####[facility] ([facility])[address] [place] [place] [address] POCT PH 7.34 Normal 7.31-7.41 [facility] Comment on above: Performed By: #### L [id number] ####[facility] ([facility])[address] [address] POCT PO2 141 mmHg High 80-105 [facility] Comment on above: Performed By: #### L [id number] ####[facility] ([facility])[address] [address] POCT SO2 99 % High 95-98 [facility] Comment on above: Performed By: #### L [id number] ####[facility] [address] Potassium [Moles/Vol] 3.0 mmol/L Low 3.5-4.9 [facility] Comment on above: Performed By: #### L [id number] ####[facility] ([facility])[address] [place] [address] Sodium [Moles/Vol] 142 mmol/L Normal 138.0-146 . 0 [facility] Comment on above: Performed By: #### L [id number] ####[facility] ([facility] [place] [address] URINE CULTURE, STERILE COLLE CTIONon 05-21-2024 Bacteria identified Cx Nom (U) No growth at 48 hours Normal [facility] Comment on above: Order Comment: Pre-o p diagnosis:Staghorn calculus [N20.0] Performed By: #### L [id number] ####[facility] ([facility])[address] [place] [address] GRAM STAIN RESULT Normal [facility] Comment on above: Order Comment: Pre-o p diagnosis:Staghorn calculus [N20.0] Result Comment: No p olymorphonuclear leukocytes seenNo organisms seen Performed By: #### L [id number] ####[facility] ([facility])[address] [place] [address] Orders Onlyon 05-20-2024 Orders Only Normal [facility] Urine Cultureon 05-15-2024 Bacteria identified Cx Nom (U) No Growth 2 Days PERFORMED BY: [facility] [address] [place] [address] PATHOLOGIST MANAGER COLLEGE MARTINE BAIN M.D. Normal [facility] Comment on above: Performed By: #### C UU #### [facility] [address] [place] [address] [place] Orders Onlyon 05-10-2024 Orders Only Normal [facility] 37on 04-24-2024 37 Normal [facility] Orders Onlyon 04-24-2024 Orders Only Normal [facility] Follow-Upon 04-19-2024 Follow-Up Normal [facility] 36on 04-18-2024 36 Patrice, patient's son called back and said his BP now was 131/79. I advised him to continue to keep track of his father's BP trends, taking it 1-2 hours after medications. Asked him to make our office aware of any concerns. He verbalized understanding. [facility] 36 [facility] 36on 04-04-2024 36 Please let him know, labs look good. Okay to resume Farxiga and spironolactone half tablet daily. Thanks! [facility] 36on 04-03-2024 36 Okay to resume Metoprolol. Will await his lab results to see if okay to resume the rest. Please follow-up tomorrow to make sure labs were done today. Thank you! [facility] Telephoneon 04-03-2024 Telephone [facility] 37on 04-02-2024 37 *Replacing carvedilol with metoprolol succinate, 25mg, 1 tablet daily. *Prescription sent for an antibiotic, doxycycline 100mg. Take twice daily for 10 days. [facility] 30on 03-06-2024 30 [facility] 30 [facility] 30 [facility] BASIC METABOLIC PANELon 02-13 Anion gap [Moles/Vol] 7 mmol/L Normal 7-20 [facility] Comment on above: Performed By: #### L [id number] ####[facility] ([facility])[address] [place] [address] Calcium [Mass/Vol] 8.4 mg/dL Low 8.6-10.3 [facility] Comment on above: Performed By: #### L [id number] ####[facility] ([facility])[address] [place] [address] Chloride [Moles/Vol] 105 mmol/L Normal 98-107 [facility] Comment on above: Performed By: #### L [id number] ####[facility] ([facility])[address] [place] [address] CO2 [Moles/Vol] 32 mmol/L High 21-31 [facility] Comment on above: Performed By: #### L [id number] ####[facility] ([facility])[address] [place] [address] Creatinine [Mass/Vol] 0.95 mg/dL Normal 0.70-1.30 [facility] Comment on above: Performed By: #### L [id number] ####[facility] ([facility])[address] [place] [address] GLOMERULAR FILTRATION RATE ML/MIN/1.73 SQ M.PREDICTED 81.9 mL/min/1.73m*2 Normal >60.0 [facility] Comment on above: Result Comment: [facility]???s estimated glomerular filtration rate (eGFR) [...] of individuals. Performed By: #### L [id number] ####[facility] ([facility])[address] [place] [address] Glucose [Mass/Vol] 90 mg/dL Normal 70-100 [facility] Comment on above: Performed By: #### L [id number] ####[facility] ([facility])[address] [place] [address] Potassium [Moles/Vol] 3.8 mmol/L Normal 3.5-5.1 [facility] Comment on above: Performed By: #### L [id number] ####[facility] ([facility])[address] [place] [address] Sodium [Moles/Vol] 140 mmol/L Normal 136-145 [facility] Comment on above: Performed By: #### L [id number] ####[facility] ([facility])[address] [place] [address] Urea nitrogen [Mass/Vol] 21 mg/dL Normal 7-25 [facility] Comment on above: Performed By: #### L [id number] ####[facility] [place] [address] UREA NITROGEN/CREATININE (MASS RATIO) IN SER/PLAS 22.1 Normal [facility] Comment on above: Performed By: #### L [id number] ####[facility] [place] [address] CBCon 03-06-2024 Erythrocyte distribution width (RBC) [Ratio] 13.3 % Normal 11.5-15.[address] [facility] Comment on above: Performed By: #### L [id number] ####[facility] ([facility])[address] [place] [address] ERYTHROCYTE MEAN CORPUSCULAR HEMOGLOBIN CONCENTRATION (G/DL) BY AUTOMATED 31.9 g/dL Low 32.0-35.0 [facility] Comment on above: Performed By: #### L [id number] ####[facility] ([facility])[address] [place] [address] Hematocrit (Bld) [Volume fraction] 38.3 % Low 39.0-55.0 [facility] Comment on above: Performed By: #### L [id number] ####[facility] [place] [address] Hemoglobin (Bld) [Mass/Vol] 12.2 g/dL Low 13.0-17.0 [facility] Comment on above: Performed By: #### L [id number] ####[facility] [place] [address] MCH (RBC) [Entitic mass] 31.9 pg Normal 27.0-33.0 [facility] Comment on above: Performed By: #### L [id number] ####[facility] [place] [address] MCV (RBC) [Entitic vol] 100.3 fL High 82.0-98.0 [facility] Comment on above: Performed By: #### L [id number] ####[facility] ([facility])[address] [place] [address] PLATELETS (10*3/UL) IN BLOOD AUTOMATED COUNT 196 10*3/uL Normal 150-400 [facility] Comment on above: Performed By: #### L [id number] ####[facility] ([facility])[address] [place] [address] RBC (Bld) [#/Vol] 3.82 10*6/uL Low 4.20-5.70 [facility] Comment on above: Performed By: #### L [id number] ####[facility] ([facility])[address] [place] [address] WBC (Bld) [#/Vol] 7.67 10*3/uL Normal 4.00-10.60 [facility] Comment on above: Performed By: #### L [id number] ####[facility] ([facility])[address] [place] [address] CONSULTon 03-06-2024 CONSULT Normal [facility] DSon 03-06-2024 DS Normal [facility] NURSNOTEon 03-06-2024 NURSNOTE This RN called and gave report to Receiving nurse at [place]. Nurse denied further questions. Report given to Transport bedside. Transport has discharge packet. Normal [facility] PRO-BNPon 03-06-2024 Natriuretic peptide B (Bld) [Mass/Vol] 800 pg/mL High 0-300 [facility] Comment on above: Result Comment: An a ge-independent cutoff point of 300 pg/ml has a 98% negative predictive value excluding acute heart failure.Test Performed by [facility] [address] [place] [address] - Released 03/06/2024 15:37 Performed By: #### L [id number] ####[employer] [id number] [place] [address] 30on 03-05-2024 30 Normal [facility] 30 Normal [facility] 30 Normal [facility] BASIC METABOLIC PANELon 02-13 Anion gap [Moles/Vol] 9 mmol/L Normal 7-20 [facility] Comment on above: Performed By: #### L [id number] ####[facility] ([facility])[address] [place] [address] Calcium [Mass/Vol] 8.4 mg/dL Low 8.6-10.3 [facility] Comment on above: Performed By: #### L [id number] ####[facility] ([facility])[address] [place] [address] Chloride [Moles/Vol] 104 mmol/L Normal 98-107 [facility] Comment on above: Performed By: #### L [id number] ####[facility] ([facility])[address] [place] [address] CO2 [Moles/Vol] 33 mmol/L High 21-31 [facility] Comment on above: Performed By: #### L [id number] ####[facility] ([facility])[address] [place] [address] Creatinine [Mass/Vol] 1.02 mg/dL Normal 0.70-1.30 [facility] Comment on above: Performed By: #### L [id number] ####[facility] ([facility])[address] [place] [address] GLOMERULAR FILTRATION RATE ML/MIN/1.73 SQ M.PREDICTED 75.2 mL/min/1.73m*2 Normal >60.0 [facility] Comment on above: Result Comment: [facility]???s estimated glomerular filtration rate (eGFR) [...] of individuals. Performed By: #### L [id number] ####[facility] ([facility])[address] [place] [address] Glucose [Mass/Vol] 88 mg/dL Normal 70-100 [facility] Comment on above: Performed By: #### L [id number] ####[facility] ([facility])[address] [place] [address] Potassium [Moles/Vol] 3.8 mmol/L Normal 3.5-5.1 [facility] Comment on above: Performed By: #### L [id number] ####[facility] ([facility])[address] [place] [address] Sodium [Moles/Vol] 142 mmol/L Normal 136-145 [facility] Comment on above: Performed By: #### L [id number] ####[facility] ([facility])[address] [place] [address] Urea nitrogen [Mass/Vol] 25 mg/dL Normal 7-25 [facility] Comment on above: Performed By: #### L [id number] ####[facility] ([facility])[address] [place] [address] UREA NITROGEN/CREATININE (MASS RATIO) IN SER/PLAS 24.5 Normal [facility] Comment on above: Performed By: #### L [id number] ####[facility] ([facility])[address] [place] [address] CBC WITH AUTO DIFFERENTIALon 03-05-2024 Basophils (Bld) [#/Vol] 0.01 10*3/uL Normal 0.00-0.20 [facility] Comment on above: Performed By: #### L [id number] ####[facility] ([facility])[address] [place] [address] Basophils/100 WBC (Bld) 0.1 % Normal 0.0-1.0 [facility] Comment on above: Performed By: #### L [id number] ####[facility] ([facility])[address] [place] [address] Eosinophils (Bld) [#/Vol] 0.08 10*3/uL Normal 0.00-0.5 0 [facility] Comment on above: Performed By: #### L [id number] ####[facility] ([facility])[address] [place] [address] Eosinophils/100 WBC (Bld) 1.0 % Normal 0.0-6.0 [facility] Comment on above: Performed By: #### L [id number] ####[facility] [place] [address] Erythrocyte distribution width (RBC) [Ratio] 13.2 % Normal 11.5-15.[address] [facility] Comment on above: Performed By: #### L [id number] ####[facility] [place] [address] ERYTHROCYTE MEAN CORPUSCULAR HEMOGLOBIN CONCENTRATION (G/DL) BY AUTOMATED 32.3 g/dL Normal 32.0-35.0 [facility] Comment on above: Performed By: #### L [id number] ####[facility] ([facility])[address] [place] [address] Hematocrit (Bld) [Volume fraction] 37.5 % Low 39.0-55.0 [facility] Comment on above: Performed By: #### L [id number] ####[facility] ([facility])[address] [place] [address] Hemoglobin (Bld) [Mass/Vol] 12.1 g/dL Low 13.0-17.0 [facility] Comment on above: Performed By: #### L [id number] ####[facility] ([facility])[address] [place] [address] Immature granulocytes (Bld) [#/Vol] 0.09 10*3/uL Normal 0.00-0.20 [facility] Comment on above: Performed By: #### L [id number] ####[facility] ([facility])[address] [place] [address] Immature granulocytes/100 WBC (Bld) 1.1 % High 0.0-1.0 [facility] Comment on above: Performed By: #### L [id number] ####[facility] ([facility])[address] [place] [address] Lymphocytes (Bld) [#/Vol] 1.27 10*3/uL Normal 1.20-4.0 0 [facility] Comment on above: Performed By: #### L [id number] ####[facility] ([facility])[address] [place] [address] Lymphocytes/100 WBC (Bld) 15.4 % Low 20.0-45.0 [facility] Comment on above: Performed By: #### L [id number] ####[facility] ([facility])[address] [place] [address] MCH (RBC) [Entitic mass] 31.6 pg Normal 27.0-33.0 [facility] Comment on above: Performed By: #### L [id number] ####[facility] ([facility])[address] [place] [address] MCV (RBC) [Entitic vol] 97.9 fL Normal 82.0-98.0 [facility] Comment on above: Performed By: #### L [id number] ####[facility] ([facility])[address] [place] [address] Monocytes (Bld) [#/Vol] 0.65 10*3/uL Normal 0.10-1.00 [facility] Comment on above: Performed By: #### L [id number] ####[facility] [place] [address] Monocytes/100 WBC (Bld) 7.9 % Normal 5.0-12.0 [facility] Comment on above: Performed By: #### L [id number] ####[facility] [place] [address] Neutrophils (Bld) [#/Vol] 6.14 10*3/uL Normal 1.60-7.6 0 [facility] Comment on above: Performed By: #### L [id number] ####[facility] [place] [address] Neutrophils/100 WBC (Bld) 74.5 % High 40.0-72.0 [facility] Comment on above: Performed By: #### L [id number] ####[facility] ([facility])[address] [place] [address] NRBC (PER 100 WBCS) BY AUTOMATED COUNT 0.0 % Normal 0 [facility] Comment on above: Performed By: #### L [id number] ####[facility] ([facility])[address] [place] [address] PLATELETS (10*3/UL) IN BLOOD AUTOMATED COUNT 190 10*3/uL Normal 150-400 [facility] Comment on above: Performed By: #### L [id number] ####[facility] ([facility])[address] [place] [address] RBC (Bld) [#/Vol] 3.83 10*6/uL Low 4.20-5.70 [facility] Comment on above: Performed By: #### L [id number] ####[facility] ([facility])[address] [place] [address] WBC (Bld) [#/Vol] 8.24 10*3/uL Normal 4.00-10.60 [facility] Comment on above: Performed By: #### L [id number] ####[facility] ([facility])[address] [place] [address] MAGNESIUMon 03-05-2024 Magnesium [Mass/Vol] 1.8 mg/dL Low 1.9-2.7 [facility] Comment on above: Performed By: #### L [id number] ####[facility] ([facility])[address] [place] [address] PHOSPHORUSon 03-05-2024 Magnesium [Mass/Vol] 3.8 mg/dL Normal 2.5-5.0 [facility] Comment on above: Performed By: #### L [id number] ####[facility] ([facility])[address] [place] [address] 30on 03-04-2024 30 Normal [facility] 30 The patient is Moderately Stable - Low risk of patient condition declining or worsening The patient's goals for the shift include Rest The clinical goals for the shift include VSS, safety, rest Normal [facility] ANESon 03-04-2024 ANES Normal [facility] APTTon 03-04-2024 ACTIVATED PARTIAL THROMBOPLASTIN TIME IN PPP BY COAGULATION ASSAY 110.7 Seconds High 25.0-35.0 [facility] Comment on above: Result Comment: Clin ical significance of the APTT is questionable in the presence of heparin. Performed By: #### L [id number] ####[facility] ([facility])[address] [place] [address] ACTIVATED PARTIAL THROMBOPLASTIN TIME IN PPP BY COAGULATION ASSAY 135.9 Seconds Critically high 25.0-35.0 [facility] Comment on above: Result Comment: Clin ical significance of the APTT is questionable in the presence of heparin. Performed By: #### L [id number] ####[facility] ([facility])[address] [place] [address] B-TYPE NATRIURETIC PEPTIDEon 03-04-2024 Natriuretic peptide B (Bld) [Mass/Vol] 178 pg/mL High 0-100 [facility] Comment on above: Performed By: #### L [id number] ####[facility] ([facility])[address] [place] [address] BASIC METABOLIC PANELon 02-13 Anion gap [Moles/Vol] 11 mmol/L Normal 7-20 [facility] Comment on above: Performed By: #### L [id number] ####[facility] ([facility] [place] [address] Calcium [Mass/Vol] 8.5 mg/dL Low 8.6-10.3 [facility] Comment on above: Performed By: #### L [id number] ####[facility] ([facility])[address] [place] [address] Chloride [Moles/Vol] 104 mmol/L Normal 98-107 [facility] Comment on above: Performed By: #### L [id number] ####[facility] ([facility] [place] [address] CO2 [Moles/Vol] 29 mmol/L Normal 21-31 [facility] Comment on above: Performed By: #### L [id number] ####[facility] ([facility])[address] [place] [address] Creatinine [Mass/Vol] 0.94 mg/dL Normal 0.70-1.30 [facility] Comment on above: Performed By: #### L [id number] ####[facility] ([facility])[address] [place] [address] GLOMERULAR FILTRATION RATE ML/MIN/1.73 SQ M.PREDICTED 83.0 mL/min/1.73m*2 Normal >60.0 [facility] Comment on above: Result Comment: [facility]???s estimated glomerular filtration rate (eGFR) [...] of individuals. Performed By: #### L [id number] ####[facility] ([facility] [place] [address] Glucose [Mass/Vol] 108 mg/dL High 70-100 [facility] Comment on above: Performed By: #### L [id number] ####[facility] [place] [address] Potassium [Moles/Vol] 3.8 mmol/L Normal 3.5-5.1 [facility] Comment on above: Performed By: #### L [id number] ####[facility] [place] [address] Sodium [Moles/Vol] 140 mmol/L Normal 136-145 [facility] Comment on above: Performed By: #### L [id number] ####[facility] [place] [address] Urea nitrogen [Mass/Vol] 29 mg/dL High 7-25 [facility] Comment on above: Performed By: #### L [id number] ####[facility] ([facility])[address] [place] [address] UREA NITROGEN/CREATININE (MASS RATIO) IN SER/PLAS 30.9 Normal [facility] Comment on above: Performed By: #### L [id number] ####[facility] [place] [address] CBC WITH AUTO DIFFERENTIALon 03-04-2024 Basophils (Bld) [#/Vol] 0.02 10*3/uL Normal 0.00-0.20 [facility] Comment on above: Performed By: #### L [id number] ####[facility] [place] [address] Basophils/100 WBC (Bld) 0.2 % Normal 0.0-1.0 [facility] Comment on above: Performed By: #### L [id number] ####[facility] [place] [address] Eosinophils (Bld) [#/Vol] 0.00 10*3/uL Normal 0.00-0.5 0 [facility] Comment on above: Performed By: #### L [id number] ####[facility] [place] [address] Eosinophils/100 WBC (Bld) 0.0 % Normal 0.0-6.0 [facility] Comment on above: Performed By: #### L [id number] ####[facility] [place] [address] Erythrocyte distribution width (RBC) [Ratio] 13.2 % Normal 11.5-15.[address] [facility] Comment on above: Performed By: #### L [id number] ####[facility] ([facility])[address] [place] [address] ERYTHROCYTE MEAN CORPUSCULAR HEMOGLOBIN CONCENTRATION (G/DL) BY AUTOMATED 31.5 g/dL Low 32.0-35.0 [facility] Comment on above: Performed By: #### L [id number] ####[facility] ([facility])[address] [place] [address] Hematocrit (Bld) [Volume fraction] 38.7 % Low 39.0-55.0 [facility] Comment on above: Performed By: #### L [id number] ####[facility] ([facility])[address] [place] [address] Hemoglobin (Bld) [Mass/Vol] 12.2 g/dL Low 13.0-17.0 [facility] Comment on above: Performed By: #### L [id number] ####[facility] ([facility] [place] [address] Immature granulocytes (Bld) [#/Vol] 0.12 10*3/uL Normal 0.00-0.20 [facility] Comment on above: Performed By: #### L [id number] ####[facility] [place] [address] Immature granulocytes/100 WBC (Bld) 1.2 % High 0.0-1.0 [facility] Comment on above: Performed By: #### L [id number] ####[facility] [place] [address] Lymphocytes (Bld) [#/Vol] 1.13 10*3/uL Low 1.20-4.0 0 [facility] Comment on above: Performed By: #### L [id number] ####[facility] ([facility])[address] [place] [address] Lymphocytes/100 WBC (Bld) 11.3 % Low 20.0-45.0 [facility] Comment on above: Performed By: #### L [id number] ####[facility] ([facility])[address] [place] [address] MCH (RBC) [Entitic mass] 31.7 pg Normal 27.0-33.0 [facility] Comment on above: Performed By: #### L [id number] ####[facility] ([facility])[address] [place] [address] MCV (RBC) [Entitic vol] 100.5 fL High 82.0-98.0 [facility] Comment on above: Performed By: #### L [id number] ####[facility] ([facility])[address] [place] [address] Monocytes (Bld) [#/Vol] 0.87 10*3/uL Normal 0.10-1.00 [facility] Comment on above: Performed By: #### L [id number] ####[facility] ([facility])[address] [place] [address] Monocytes/100 WBC (Bld) 8.7 % Normal 5.0-12.0 [facility] Comment on above: Performed By: #### L [id number] ####[facility] ([facility])[address] [place] [address] Neutrophils (Bld) [#/Vol] 7.88 10*3/uL High 1.60-7.6 0 [facility] Comment on above: Performed By: #### L [id number] ####[facility] ([facility])[address] [place] [address] Neutrophils/100 WBC (Bld) 78.6 % High 40.0-72.0 [facility] Comment on above: Performed By: #### L [id number] ####[facility] ([facility])[address] [place] [address] NRBC (PER 100 WBCS) BY AUTOMATED COUNT 0.0 % Normal 0 [facility] Comment on above: Performed By: #### L [id number] ####[facility] ([facility])[address] [address] PLATELETS (10*3/UL) IN BLOOD AUTOMATED COUNT 182 10*3/uL Normal 150-400 [facility] Comment on above: Performed By: #### L [id number] ####[facility] ([facility])[address] [address] RBC (Bld) [#/Vol] 3.85 10*6/uL Low 4.20-5.70 [facility] Comment on above: Performed By: #### L [id number] ####[facility] ([facility])[address] [address] WBC (Bld) [#/Vol] 10.02 10*3/uL Normal 4.00-10.60 [facility] Comment on above: Performed By: #### L [id number] ####[facility] ([facility])[address] [address] CONSULTon 03-04-2024 CONSULT Normal [facility] HPon 03-04-2024 HP Normal [facility] MAGNESIUMon 03-04-2024 Magnesium [Mass/Vol] 1.8 mg/dL Low 1.9-2.7 [facility] Comment on above: Performed By: #### L [id number] ####[facility] ([facility])[address] [address] PHOSPHORUSon 03-04-2024 Magnesium [Mass/Vol] 3.1 mg/dL Normal 2.5-5.0 [facility] Comment on above: Performed By: #### L [id number] ####[facility] ([facility])[address] [place] [address] 30on 03-03-2024 30 Normal [facility] 30 Normal [facility] 30 Normal [facility] 30 Normal [facility] APTTon 03-03-2024 ACTIVATED PARTIAL THROMBOPLASTIN TIME IN PPP BY COAGULATION ASSAY 147.8 Seconds Critically high 25.0-35.0 [facility] Comment on above: Result Comment: Clin ical significance of the APTT is questionable in the presence of heparin. Performed By: #### L [id number] ####[facility] ([facility])[address] [place] [address] ACTIVATED PARTIAL THROMBOPLASTIN TIME IN PPP BY COAGULATION ASSAY 124.5 Seconds High 25.0-35.0 [facility] Comment on above: Result Comment: Clin ical significance of the APTT is questionable in the presence of heparin. Performed By: #### L [id number] ####[facility] ([facility])[address] [place] [address] ACTIVATED PARTIAL THROMBOPLASTIN TIME IN PPP BY COAGULATION ASSAY 169.5 Seconds Critically high 25.0-35.0 [facility] Comment on above: Order Comment: Check aPTT every 6 hours while on heparin infusion, or per protocol. Result Comment: Clin ical significance of the APTT is questionable in the presence of heparin. Performed By: #### L [id number] ####[facility] ([facility])[address] [place] [address] BASIC METABOLIC PANELon 02-13 Anion gap [Moles/Vol] 9 mmol/L Normal 7-20 [facility] Comment on above: Performed By: #### L [id number] ####[facility] ([facility])[address] [place] [address] Calcium [Mass/Vol] 8.2 mg/dL Low 8.6-10.3 [facility] Comment on above: Performed By: #### L [id number] ####[facility] ([facility])[address] [place] [address] Chloride [Moles/Vol] 103 mmol/L Normal 98-107 [facility] Comment on above: Performed By: #### L [id number] ####[facility] ([facility])[address] [place] [address] CO2 [Moles/Vol] 32 mmol/L High 21-31 [facility] Comment on above: Performed By: #### L [id number] ####[facility] ([facility])[address] [place] [address] Creatinine [Mass/Vol] 0.93 mg/dL Normal 0.70-1.30 [facility] Comment on above: Performed By: #### L [id number] ####[facility] ([facility])[address] [place] [address] GLOMERULAR FILTRATION RATE ML/MIN/1.73 SQ M.PREDICTED 84.0 mL/min/1.73m*2 Normal >60.0 [facility] Comment on above: Result Comment: [facility]???s estimated glomerular filtration rate (eGFR) [...] of individuals. Performed By: #### L [id number] ####[facility] ([facility])[address] [place] [address] Glucose [Mass/Vol] 110 mg/dL High 70-100 [facility] Comment on above: Performed By: #### L [id number] ####[facility] ([facility])[address] [place] [address] Potassium [Moles/Vol] 3.3 mmol/L Low 3.5-5.1 [facility] Comment on above: Performed By: #### L [id number] ####[facility] [place] [address] Sodium [Moles/Vol] 141 mmol/L Normal 136-145 [facility] Comment on above: Performed By: #### L [id number] ####[facility] [place] [address] Urea nitrogen [Mass/Vol] 27 mg/dL High 7-25 [facility] Comment on above: Performed By: #### L [id number] ####[facility] [place] [address] UREA NITROGEN/CREATININE (MASS RATIO) IN SER/PLAS 29.0 Normal [facility] Comment on above: Performed By: #### L [id number] ####[facility] ([facility])[address] [address] CBC WITH AUTO DIFFERENTIALon 03-03-2024 Basophils (Bld) [#/Vol] 0.01 10*3/uL Normal 0.00-0.20 [facility] Comment on above: Performed By: #### L [id number] ####[facility] [place] [address] Basophils/100 WBC (Bld) 0.1 % Normal 0.0-1.0 [facility] Comment on above: Performed By: #### L [id number] ####[facility] [place], [place] [address] Eosinophils (Bld) [#/Vol] 0.00 10*3/uL Normal 0.00-0.5 0 [facility] Comment on above: Performed By: #### L [id number] ####[facility] [place], [place] [address] Eosinophils/100 WBC (Bld) 0.0 % Normal 0.0-6.0 [facility] Comment on above: Performed By: #### L [id number] ####[facility] [place] [address] Erythrocyte distribution width (RBC) [Ratio] 13.2 % Normal 11.5-15.[address] [facility] Comment on above: Performed By: #### L [id number] ####[facility] ([facility])[address] [address] ERYTHROCYTE MEAN CORPUSCULAR HEMOGLOBIN CONCENTRATION (G/DL) BY AUTOMATED 32.1 g/dL Normal 32.0-35.0 [facility] Comment on above: Performed By: #### L [id number] ####[facility] ([facility])[address] [place] [address] Hematocrit (Bld) [Volume fraction] 38.0 % Low 39.0-55.0 [facility] Comment on above: Performed By: #### L [id number] ####[facility] ([facility])[address] [place] [address] Hemoglobin (Bld) [Mass/Vol] 12.2 g/dL Low 13.0-17.0 [facility] Comment on above: Performed By: #### L [id number] ####[facility] ([facility])[address] [place] [address] Immature granulocytes (Bld) [#/Vol] 0.07 10*3/uL Normal 0.00-0.20 [facility] Comment on above: Performed By: #### L [id number] ####[facility] ([facility])[address] [place] [address] Immature granulocytes/100 WBC (Bld) 0.7 % Normal 0.0-1.0 [facility] Comment on above: Performed By: #### L [id number] ####[facility] ([facility])[address] [place], [place] [address] Lymphocytes (Bld) [#/Vol] 1.03 10*3/uL Low 1.20-4.0 0 [facility] Comment on above: Performed By: #### L [id number] ####[facility] ([facility])[address] [place] [address] Lymphocytes/100 WBC (Bld) 10.2 % Low 20.0-45.0 [facility] Comment on above: Performed By: #### L [id number] ####[facility] [place] [address] MCH (RBC) [Entitic mass] 31.4 pg Normal 27.0-33.0 [facility] Comment on above: Performed By: #### L [id number] ####[facility] [place] [address] MCV (RBC) [Entitic vol] 97.7 fL Normal 82.0-98.0 [facility] Comment on above: Performed By: #### L [id number] ####[facility] ([facility])[address] [place], [place] [address] Monocytes (Bld) [#/Vol] 1.01 10*3/uL High 0.10-1.00 [facility] Comment on above: Performed By: #### L [id number] ####[facility] [place] [address] Monocytes/100 WBC (Bld) 10.0 % Normal 5.0-12.0 [facility] Comment on above: Performed By: #### L [id number] ####[facility] ([facility])[address] [place] [address] Neutrophils (Bld) [#/Vol] 8.01 10*3/uL High 1.60-7.6 0 [facility] Comment on above: Performed By: #### L [id number] ####[facility] ([facility])[address] [place] [address] Neutrophils/100 WBC (Bld) 79.0 % High 40.0-72.0 [facility] Comment on above: Performed By: #### L [id number] ####[facility] ([facility])[address] [place] [address] NRBC (PER 100 WBCS) BY AUTOMATED COUNT 0.0 % Normal 0 [facility] Comment on above: Performed By: #### L [id number] ####[facility] ([facility])[address] [place] [address] PLATELETS (10*3/UL) IN BLOOD AUTOMATED COUNT 164 10*3/uL Normal 150-400 [facility] Comment on above: Performed By: #### L [id number] ####[facility] ([facility])[address] [place] [address] RBC (Bld) [#/Vol] 3.89 10*6/uL Low 4.20-5.70 [facility] Comment on above: Performed By: #### L [id number] ####[facility] ([facility])[address] [place] [address] WBC (Bld) [#/Vol] 10.13 10*3/uL Normal 4.00-10.60 [facility] Comment on above: Performed By: #### L [id number] ####[facility] ([facility])[address] [place] [address] CLOSTRIDIOIDES DIFFICILE DNA AMPLIFICATIONon 03-03-2024 CLOSTRIDIOIDES DIFFICILE (TOXIN A/B) Negative Normal Negative [facility] Comment on above: Order [...] suspected of having Clostridioides difficile-infection (CDI). The Hydro C. difficile Assay is intended for use as an aid in diagnosis of CDI. The assay utilizes helicase-dependent amplification (HDA) for the amplification of a highly conserved fragment of the Toxin A gene sequence. Performed By: #### L [id number] ####[facility] ([facility])[address] [place] [address] MAGNESIUMon 03-03-2024 Magnesium [Mass/Vol] 1.9 mg/dL Normal 1.9-2.7 [facility] Comment on above: Performed By: #### L [id number] ####[facility] ([facility])[address] [place] [address] NURSNOTEon 03-03-2024 NURSNOTE Normal [facility] NURSNOTE Normal [facility] PHOSPHORUSon 03-03-2024 Magnesium [Mass/Vol] 2.7 mg/dL Normal 2.5-5.0 [facility] Comment on above: Performed By: #### L [id number] ####[facility] ([facility])[address] [place] [address] 30on 03-02-2024 30 The patient is Moderately Stable - Low risk of patient condition declining or worsening The patient's goals for the shift include Comfort The clinical goals for the shift include VSS, safety Normal [facility] APTTon 03-02-2024 ACTIVATED PARTIAL THROMBOPLASTIN TIME IN PPP BY COAGULATION ASSAY 127.4 Seconds High 25.0-35.0 [facility] Comment on above: Order Comment: Check aPTT every 6 hours while on heparin infusion, or per protocol. Result Comment: Clin ical significance of the APTT is questionable in the presence of heparin. Performed By: #### L [id number] ####[facility] ([facility])[address] [place] [address] ACTIVATED PARTIAL THROMBOPLASTIN TIME IN PPP BY COAGULATION ASSAY 106.1 Seconds High 25.0-35.0 [facility] Comment on above: Order Comment: Check aPTT every 6 hours while on heparin infusion, or per protocol. Result Comment: Clin ical significance of the APTT is questionable in the presence of heparin. Performed By: #### L [id number] ####[facility] ([facility])[address] [place] [address] BASIC METABOLIC PANELon 02-12 Anion gap [Moles/Vol] 10 mmol/L Normal 7-20 [facility] Comment on above: Performed By: #### L [id number] ####[facility] ([facility])[address] [place] [address] Calcium [Mass/Vol] 8.1 mg/dL Low 8.6-10.3 [facility] Comment on above: Performed By: #### L [id number] ####[facility] ([facility])[address] [place] [address] Chloride [Moles/Vol] 104 mmol/L Normal 98-107 [facility] Comment on above: Performed By: #### L [id number] ####[facility] ([facility])[address] [place] [address] CO2 [Moles/Vol] 30 mmol/L Normal 21-31 [facility] Comment on above: Performed By: #### L [id number] ####[facility] ([facility])[address] [place] [address] Creatinine [Mass/Vol] 0.97 mg/dL Normal 0.70-1.30 [facility] Comment on above: Performed By: #### L [id number] ####[facility] ([facility])[address] [place] [address] GLOMERULAR FILTRATION RATE ML/MIN/1.73 SQ M.PREDICTED 79.9 mL/min/1.73m*2 Normal >60.0 [facility] Comment on above: Result Comment: [facility]???s estimated glomerular filtration rate (eGFR) [...] of individuals. Performed By: #### L [id number] ####[facility] ([facility])[address] [place] [address] Glucose [Mass/Vol] 136 mg/dL High 70-100 [facility] Comment on above: Performed By: #### L [id number] ####[facility] ([facility])[address] [place] [address] Potassium [Moles/Vol] 3.0 mmol/L Low 3.5-5.1 [facility] Comment on above: Performed By: #### L [id number] ####[facility] ([facility])[address] [place] [address] Sodium [Moles/Vol] 141 mmol/L Normal 136-145 [facility] Comment on above: Performed By: #### L [id number] ####[facility] ([facility])[address] [place] [address] Urea nitrogen [Mass/Vol] 37 mg/dL High 7-25 [facility] Comment on above: Performed By: #### L [id number] ####[facility] ([facility])[address] [place] [address] UREA NITROGEN/CREATININE (MASS RATIO) IN SER/PLAS 38.1 Normal [facility] Comment on above: Performed By: #### L [id number] ####[facility] ([facility])[address] [place] [address] CBC WITH AUTO DIFFERENTIALon 03-02-2024 Basophils (Bld) [#/Vol] 0.01 10*3/uL Normal 0.00-0.20 [facility] Comment on above: Performed By: #### L [id number] ####[facility] ([facility])[address] [place] [address] Basophils/100 WBC (Bld) 0.1 % Normal 0.0-1.0 [facility] Comment on above: Performed By: #### L [id number] ####[facility] ([facility])[address] [place] [address] Eosinophils (Bld) [#/Vol] 0.00 10*3/uL Normal 0.00-0.5 0 [facility] Comment on above: Performed By: #### L [id number] ####[facility] ([facility])[address] [place] [address] Eosinophils/100 WBC (Bld) 0.0 % Normal 0.0-6.0 [facility] Comment on above: Performed By: #### L [id number] ####[facility] [place] [address] Erythrocyte distribution width (RBC) [Ratio] 12.9 % Normal 11.5-15.[address] [facility] Comment on above: Performed By: #### L [id number] ####[facility] ([facility])[address] [place] [address] ERYTHROCYTE MEAN CORPUSCULAR HEMOGLOBIN CONCENTRATION (G/DL) BY AUTOMATED 32.3 g/dL Normal 32.0-35.0 [facility] Comment on above: Performed By: #### L [id number] ####[facility] [place] [address] Hematocrit (Bld) [Volume fraction] 36.8 % Low 39.0-55.0 [facility] Comment on above: Performed By: #### L [id number] ####[facility] ([facility])[address] [place] [address] Hemoglobin (Bld) [Mass/Vol] 11.9 g/dL Low 13.0-17.0 [facility] Comment on above: Performed By: #### L [id number] ####[facility] ([facility])[address] [place] [address] Immature granulocytes (Bld) [#/Vol] 0.05 10*3/uL Normal 0.00-0.20 [facility] Comment on above: Performed By: #### L [id number] ####[facility] ([facility])[address] [place] [address] Immature granulocytes/100 WBC (Bld) 0.7 % Normal 0.0-1.0 [facility] Comment on above: Performed By: #### L [id number] ####[facility] [place] [address] Lymphocytes (Bld) [#/Vol] 0.58 10*3/uL Low 1.20-4.0 0 [facility] Comment on above: Performed By: #### L [id number] ####[facility] ([facility] [place] [address] Lymphocytes/100 WBC (Bld) 7.8 % Low 20.0-45.0 [facility] Comment on above: Performed By: #### L [id number] ####[facility] ([facility] [place] [address] MCH (RBC) [Entitic mass] 32.1 pg Normal 27.0-33.0 [facility] Comment on above: Performed By: #### L [id number] ####[facility] [place] [address] MCV (RBC) [Entitic vol] 99.2 fL High 82.0-98.0 [facility] Comment on above: Performed By: #### L [id number] ####[facility] [place] [address] Monocytes (Bld) [#/Vol] 0.56 10*3/uL Normal 0.10-1.00 [facility] Comment on above: Performed By: #### L [id number] ####[facility] [place] [address] Monocytes/100 WBC (Bld) 7.5 % Normal 5.0-12.0 [facility] Comment on above: Performed By: #### L [id number] ####[facility] [place] [address] Neutrophils (Bld) [#/Vol] 6.28 10*3/uL Normal 1.60-7.6 0 [facility] Comment on above: Performed By: #### L [id number] ####[facility] [place] [address] Neutrophils/100 WBC (Bld) 83.9 % High 40.0-72.0 [facility] Comment on above: Performed By: #### L [id number] ####[facility] ([facility] [place] [address] NRBC (PER 100 WBCS) BY AUTOMATED COUNT 0.0 % Normal 0 [facility] Comment on above: Performed By: #### L [id number] ####[facility] ([facility] [place] [address] PLATELETS (10*3/UL) IN BLOOD AUTOMATED COUNT 159 10*3/uL Normal 150-400 [facility] Comment on above: Performed By: #### L [id number] ####[facility] [place] [address] RBC (Bld) [#/Vol] 3.71 10*6/uL Low 4.20-5.70 [facility] Comment on above: Performed By: #### L [id number] ####[facility] [place] [address] WBC (Bld) [#/Vol] 7.48 10*3/uL Normal 4.00-10.60 [facility] Comment on above: Performed By: #### L [id number] ####[facility] ([facility] [place] [address] MAGNESIUMon 03-02-2024 Magnesium [Mass/Vol] 1.9 mg/dL Normal 1.9-2.7 [facility] Comment on above: Performed By: #### L [id number] ####[facility] [place] [address] NURSNOTEon 03-02-2024 NURSNOTE Normal [facility] PHOSPHORUSon 03-02-2024 Magnesium [Mass/Vol] 3.4 mg/dL Normal 2.5-5.0 [facility] Comment on above: Performed By: #### L [id number] ####[facility] ([facility])[address] [place] [address] VENOUS BLOOD GAS WITH IONIZE D CALCIUMon 03-02-2024 Base excess Calc (BldV) [Moles/Vol] 4.3 mmol/L Normal [facility] Comment on above: Performed By: #### L [id number] ####[facility] [id number] [place] [address] [facility] CALCIUM IONIZED (MMOL/L) IN BLOOD 1.19 mmol/L Normal 1.15-1.33 [facility] Comment on above: Performed By: #### L [id number] ####[facility] [id number] [place] [address] [facility] CO2 (BldV) [Partial pressure] 47 mm[Hg] Normal 40-50 [facility] Comment on above: Performed By: #### L [id number] ####[facility] [id number] [place] [address] [facility] HCO3 (Bld) [Moles/Vol] 29.8 mmol/L Normal [facility] Comment on above: Performed By: #### L [id number] ####[facility] RESPIRATORY [id number] [place] [address] [facility] Oxygen (BldV) [Partial pressure] 46 mm[Hg] High 35-45 [facility] Comment on above: Performed By: #### L [id number] ####[facility] RESPIRAT[facility] [id number] [place] [address] [facility] OXYGEN SATURATION (%) IN VENOUS BLOOD 76.1 % High 65.0-75.0 [facility] Comment on above: Performed By: #### L [id number] ####[facility] RESPIRATORY [id number] [place] [address] [facility] PH OF VENOUS BLOOD 7.41 Normal 7.31-7.41 [facility] Comment on above: Performed By: #### L [id number] ####[facility] RESPIRAT[facility] [id number] [place] [address] [place] 30on 03-01-2024 30 Normal [facility] BASIC METABOLIC PANELon 02-12 Anion gap [Moles/Vol] 10 mmol/L Normal 7-20 [facility] Comment on above: Performed By: #### L [id number] ####[facility] (BEAKER)[address] [place] [address] Calcium [Mass/Vol] 8.3 mg/dL Low 8.6-10.3 [facility] Comment on above: Performed By: #### L [id number] ####[facility] (BEAKER)[address] [place] [address] Chloride [Moles/Vol] 104 mmol/L Normal 98-107 [facility] Comment on above: Performed By: #### L [id number] ####[facility] [place] [address] CO2 [Moles/Vol] 29 mmol/L Normal 21-31 [facility] Comment on above: Performed By: #### L [id number] ####[facility] (BEAKER)[address] [place] [address] Creatinine [Mass/Vol] 0.99 mg/dL Normal 0.70-1.30 [facility] Comment on above: Performed By: #### L [id number] ####[facility] ([facility])[address] [place] [address] GLOMERULAR FILTRATION RATE ML/MIN/1.73 SQ M.PREDICTED 78.0 mL/min/1.73m*2 Normal >60.0 [facility] Comment on above: Result Comment: [facility]???s estimated glomerular filtration rate (eGFR) [...] of individuals. Performed By: #### L [id number] ####[facility] ([facility])[address] [place] [address] Glucose [Mass/Vol] 156 mg/dL High 70-100 [facility] Comment on above: Performed By: #### L [id number] ####[facility] ([facility])[address] [place] [address] Potassium [Moles/Vol] 3.4 mmol/L Low 3.5-5.1 [facility] Comment on above: Performed By: #### L [id number] ####[facility] ([facility])[address] [place] [address] Sodium [Moles/Vol] 140 mmol/L Normal 136-145 [facility] Comment on above: Performed By: #### L [id number] ####[facility] ([facility])[address] [place] [address] Urea nitrogen [Mass/Vol] 35 mg/dL High 7-25 [facility] Comment on above: Performed By: #### L [id number] ####[facility] ([facility])[address] [place] [address] UREA NITROGEN/CREATININE (MASS RATIO) IN SER/PLAS 35.4 Normal [facility] Comment on above: Performed By: #### L [id number] ####[facility] ([facility])[address] [place] [address] BLOOD CULTUREon 03-01-2024 Bacteria identified Cx Nom (Bld) No growth at [address] [facility] Comment on above: Performed By: #### L [id number] ####[facility] ([facility])[address] [place] [address] CBC WITH AUTO DIFFERENTIALon 03-01-2024 Basophils (Bld) [#/Vol] 0.01 10*3/uL Normal 0.00-0.20 [facility] Comment on above: Performed By: #### L [id number] ####[facility] ([facility])[address] [place] [address] Basophils/100 WBC (Bld) 0.1 % Normal 0.0-1.0 [facility] Comment on above: Performed By: #### L [id number] ####[facility] ([facility])[address] [place] [address] Eosinophils (Bld) [#/Vol] 0.00 10*3/uL Normal 0.00-0.5 0 [facility] Comment on above: Performed By: #### L [id number] ####[facility] ([facility])[address] [place] [address] Eosinophils/100 WBC (Bld) 0.0 % Normal 0.0-6.0 [facility] Comment on above: Performed By: #### L [id number] ####[facility] ([facility])[address] [place] [address] Erythrocyte distribution width (RBC) [Ratio] 12.9 % Normal 11.5-15.[address] [facility] Comment on above: Performed By: #### L [id number] ####[facility] ([facility])[address] [place] [address] ERYTHROCYTE MEAN CORPUSCULAR HEMOGLOBIN CONCENTRATION (G/DL) BY AUTOMATED 32.1 g/dL Normal 32.0-35.0 [facility] Comment on above: Performed By: #### L [id number] ####[facility] ([facility])[address] [place] [address] Hematocrit (Bld) [Volume fraction] 38.9 % Low 39.0-55.0 [facility] Comment on above: Performed By: #### L [id number] ####[facility] ([facility])[address] [place] [address] Hemoglobin (Bld) [Mass/Vol] 12.5 g/dL Low 13.0-17.0 [facility] Comment on above: Performed By: #### L [id number] ####[facility] ([facility])[address] [place] [address] Immature granulocytes (Bld) [#/Vol] 0.05 10*3/uL Normal 0.00-0.20 [facility] Comment on above: Performed By: #### L [id number] ####[facility] ([facility])[address] [place] [address] Immature granulocytes/100 WBC (Bld) 0.5 % Normal 0.0-1.0 [facility] Comment on above: Performed By: #### L [id number] ####[facility] ([facility])[address] [place] [address] Lymphocytes (Bld) [#/Vol] 0.42 10*3/uL Low 1.20-4.0 0 [facility] Comment on above: Performed By: #### L [id number] ####[facility] ([facility])[address] [place] [address] Lymphocytes/100 WBC (Bld) 4.2 % Low 20.0-45.0 [facility] Comment on above: Performed By: #### L [id number] ####[facility] ([facility])[address] [place] [address] MCH (RBC) [Entitic mass] 31.9 pg Normal 27.0-33.0 [facility] Comment on above: Performed By: #### L [id number] ####[facility] ([facility])[address] [place] [address] MCV (RBC) [Entitic vol] 99.2 fL High 82.0-98.0 [facility] Comment on above: Performed By: #### L [id number] ####[facility] ([facility])[address] [place] [address] Monocytes (Bld) [#/Vol] 0.45 10*3/uL Normal 0.10-1.00 [facility] Comment on above: Performed By: #### L [id number] ####[facility] ([facility])[address] [place] [address] Monocytes/100 WBC (Bld) 4.5 % Low 5.0-12.0 [facility] Comment on above: Performed By: #### L [id number] ####[facility] ([facility])[address] [place] [address] Neutrophils (Bld) [#/Vol] 9.11 10*3/uL High 1.60-7.6 0 [facility] Comment on above: Performed By: #### L [id number] ####[facility] ([facility])[address] [place] [address] Neutrophils/100 WBC (Bld) 90.7 % High 40.0-72.0 [facility] Comment on above: Performed By: #### L [id number] ####[facility] ([facility])[address] [place] [address] NRBC (PER 100 WBCS) BY AUTOMATED COUNT 0.0 % Normal 0 [facility] Comment on above: Performed By: #### L [id number] ####[facility] ([facility])[address] [place] [address] PLATELETS (10*3/UL) IN BLOOD AUTOMATED COUNT 165 10*3/uL Normal 150-400 [facility] Comment on above: Performed By: #### L [id number] ####[facility] ([facility])[address] [place] [address] RBC (Bld) [#/Vol] 3.92 10*6/uL Low 4.20-5.70 [facility] Comment on above: Performed By: #### L [id number] ####[facility] ([facility])[address] [place] [address] WBC (Bld) [#/Vol] 10.04 10*3/uL Normal 4.00-10.60 [facility] Comment on above: Performed By: #### L [id number] ####[facility] ([facility])[address] [place] [address] Basophils (Bld) [#/Vol] 0.01 10*3/uL Normal 0.00-0.20 [facility] Comment on above: Performed By: #### L [id number] ####[facility] ([facility])[address] [place] [address] Basophils/100 WBC (Bld) 0.1 % Normal 0.0-1.0 [facility] Comment on above: Performed By: #### L [id number] ####[facility] ([facility])[address] [place] [address] Eosinophils (Bld) [#/Vol] 0.00 10*3/uL Normal 0.00-0.5 0 [facility] Comment on above: Performed By: #### L [id number] ####[facility] ([facility])[address] [place] [address] Eosinophils/100 WBC (Bld) 0.0 % Normal 0.0-6.0 [facility] Comment on above: Performed By: #### L [id number] ####[facility] ([facility])[address] [place] [address] Erythrocyte distribution width (RBC) [Ratio] 12.8 % Normal 11.5-15.[address] [facility] Comment on above: Performed By: #### L [id number] ####[facility] ([facility])[address] [place] [address] ERYTHROCYTE MEAN CORPUSCULAR HEMOGLOBIN CONCENTRATION (G/DL) BY AUTOMATED 31.9 g/dL Low 32.0-35.0 [facility] Comment on above: Performed By: #### L [id number] ####[facility] ([facility])[address] [place] [address] Hematocrit (Bld) [Volume fraction] 37.9 % Low 39.0-55.0 [facility] Comment on above: Performed By: #### L [id number] ####[facility] ([facility])[address] [place] [address] Hemoglobin (Bld) [Mass/Vol] 12.1 g/dL Low 13.0-17.0 [facility] Comment on above: Performed By: #### L [id number] ####[facility] [place] [address] Immature granulocytes (Bld) [#/Vol] 0.05 10*3/uL Normal 0.00-0.20 [facility] Comment on above: Performed By: #### L [id number] ####[facility] [place] [address] Immature granulocytes/100 WBC (Bld) 0.7 % Normal 0.0-1.0 [facility] Comment on above: Performed By: #### L [id number] ####[facility] ([facility])[address] [place] [address] Lymphocytes (Bld) [#/Vol] 0.43 10*3/uL Low 1.20-4.0 0 [facility] Comment on above: Performed By: #### L [id number] ####[facility] [place] [address] Lymphocytes/100 WBC (Bld) 6.0 % Low 20.0-45.0 [facility] Comment on above: Performed By: #### L [id number] ####[facility] [place] [address] MCH (RBC) [Entitic mass] 32.1 pg Normal 27.0-33.0 [facility] Comment on above: Performed By: #### L [id number] ####[facility] ([facility])[address] [place] [address] MCV (RBC) [Entitic vol] 100.5 fL High 82.0-98.0 [facility] Comment on above: Performed By: #### L [id number] ####[facility] ([facility])[address] [place] [address] Monocytes (Bld) [#/Vol] 0.26 10*3/uL Normal 0.10-1.00 [facility] Comment on above: Performed By: #### L [id number] ####[facility] ([facility])[address] [place] [address] Monocytes/100 WBC (Bld) 3.6 % Low 5.0-12.0 [facility] Comment on above: Performed By: #### L [id number] ####[facility] ([facility])[address] [place] [address] Neutrophils (Bld) [#/Vol] 6.39 10*3/uL Normal 1.60-7.6 0 [facility] Comment on above: Performed By: #### L [id number] ####[facility] ([facility])[address] [place] [address] Neutrophils/100 WBC (Bld) 89.6 % High 40.0-72.0 [facility] Comment on above: Performed By: #### L [id number] ####[facility] ([facility])[address] [place] [address] NRBC (PER 100 WBCS) BY AUTOMATED COUNT 0.0 % Normal 0 [facility] Comment on above: Performed By: #### L [id number] ####[facility] ([facility])[address] [place] [address] PLATELETS (10*3/UL) IN BLOOD AUTOMATED COUNT 161 10*3/uL Normal 150-400 [facility] Comment on above: Performed By: #### L [id number] ####[facility] ([facility])[address] [place] [address] RBC (Bld) [#/Vol] 3.77 10*6/uL Low 4.20-5.70 [facility] Comment on above: Performed By: #### L [id number] ####[facility] ([facility])[address] [place] [address] WBC (Bld) [#/Vol] 7.14 10*3/uL Normal 4.00-10.60 [facility] Comment on above: Performed By: #### L [id number] ####[facility] ([facility])[address] [place] [address] CONSULTon 03-01-2024 CONSULT Normal [facility] MAGNESIUMon 03-01-2024 Magnesium [Mass/Vol] 2.1 mg/dL Normal 1.9-2.7 [facility] Comment on above: Performed By: #### L [id number] ####[facility] ([facility])[address] [place] [address] PHOSPHORUSon 03-01-2024 Magnesium [Mass/Vol] 2.3 mg/dL Low 2.5-5.0 [facility] Comment on above: Performed By: #### L [id number] ####[facility] ([facility])[address] [place] [address] PLATELET COUNTon 03-01-2024 PLATELETS (10*3/UL) IN BLOOD AUTOMATED COUNT 157 10*3/uL Normal 150-400 [facility] Comment on above: Performed By: #### L [id number] ####[facility] ([facility])[address] [place] [address] URINALYSIS WITH MICROSCOPICo n 03-01-2024 BILIRUBIN, TOTAL PRESENCE IN URINE Negative Normal Negative [facility] Comment on above: Performed By: #### L [id number] ####[facility] ([facility])[address] [place] [address] Clarity (U) Turbid Abnormal Clear [facility] Comment on above: Performed By: #### L [id number] ####[facility] ([facility])[address] [place] [address] Color (U) Yellow Normal Colorless, Yellow, Light-Placer ow [facility] Comment on above: Performed By: #### L [id number] ####[facility])[address] [place] [address] GLUCOSE (MG/DL) IN URINE Normal Normal Normal [facility] Comment on above: Performed By: #### L [id number] ####[facility] ([facility])[address] [place] [address] HEMOGLOBIN PRESENCE IN URINE Moderate Abnormal Negative [facility] Comment on above: Performed By: #### L [id number] ####[facility] ([facility])[address] [place] [address] Ketones Ql (U) Negative Normal Negative [facility] Comment on above: Performed By: #### L [id number] ####[facility] ([facility])[address] [place] [address] LEUKOCYTE ESTERASE PRESENCE IN URINE BY TEST STRIP Large Abnormal Negative [facility] Comment on above: Performed By: #### L [id number] ####[facility] ([facility])[address] [place], [place] [address] MUCUS (#/LPF) IN URINE SEDIMENT Few Normal None Seen, Occasional , Few [facility] Comment on above: Performed By: #### L [id number] ####[facility] ([facility])[address] [place] [address] NITRITE PRESENCE IN URINE Negative Normal Negative [facility] Comment on above: Performed By: #### L [id number] ####[facility] ([facility])[address] [place], [place] [address] pH (U) 5.5 [pH] Normal 5.0-8.0 [facility] Comment on above: Performed By: #### L [id number] ####[facility] ([facility])[address] [place], [place] [address] Protein (U) [Mass/Vol] Negative Normal Negative [facility] on above: Performed By: #### L [id number] ####[facility])[address] [place], [place] [address] RBC (#/HPF) IN URINE SEDIMENT >20 Abnormal None Seen, 0-2 [facility] Comment on above: Performed By: #### L [id number] ####[facility])[address] [place] [address] Specific gravity (U) [Rel density] 1.012 Normal 1.010-1.03 0 [facility] Comment on above: Performed By: #### L [id number] ####[facility] ([facility])[address] [place] [address] SQUAMOUS EPITHELIAL CELLS (#/LPF) IN URINE SEDIMENT Many Abnormal None Seen, Occasional , Few [facility] Comment on above: Performed By: #### L [id number] ####[facility] ([facility])[address] [place] [address] UROBILINOGEN (MG/DL) IN URINE Normal Normal Normal [facility] Comment on above: Performed By: #### L [id number] ####[facility] ([facility])[address] [place] [address] WBC (LEUKOCYTE) (#/HPF) IN URINE SEDIMENT >50 Abnormal None Seen, 0-2 [facility] Comment on above: Performed By: #### L [id number] ####[facility] ([facility])[address] [place] [address] WBC (LEUKOCYTE) CLUMPS (#/HPF) IN URINE SEDIMENT Present Abnormal None Seen [facility] Comment on above: Performed By: #### L [id number] ####[facility] ([facility])[address] [place] [address] URINE CULTURE, ROUTINEon Ampicillin [Susc] 2 ug/ml Susceptible [facility] Comment on above: Performed By: #### L [id number] ####[facility] ([facility])[address] [place] [address] Nitrofurantoin [Susc] <=16 Susceptible [facility] Comment on above: Performed By: #### L [id number] ####[facility] ([facility])[address] [place] [address] Vancomycin [Susc] 1 ug/ml Susceptible [facility] Comment on above: Performed By: #### L [id number] ####[facility] ([facility])[address] [place] [address] B-TYPE NATRIURETIC PEPTIDEon 02-29-2024 Natriuretic peptide B (Bld) [Mass/Vol] 524 pg/mL High 0-100 [facility] Comment on above: Performed By: #### L [id number] ####[facility] ([facility])[address] [place] [address] BASIC METABOLIC PANELon 02-12 Anion gap [Moles/Vol] 10 mmol/L Normal 7-20 [facility] Comment on above: Performed By: #### L [id number] ####[facility] [place] [address] Calcium [Mass/Vol] 8.6 mg/dL Normal 8.6-10.3 [facility] Comment on above: Performed By: #### L [id number] ####[facility] [place] [address] Chloride [Moles/Vol] 104 mmol/L Normal 98-107 [facility] Comment on above: Performed By: #### L [id number] ####[facility] ([facility])[address] [place] [address] CO2 [Moles/Vol] 30 mmol/L Normal 21-31 [facility] Comment on above: Performed By: #### L [id number] ####[facility] [place] [address] Creatinine [Mass/Vol] 0.99 mg/dL Normal 0.70-1.30 [facility] Comment on above: Performed By: #### L [id number] ####[facility] [place] [address] GLOMERULAR FILTRATION RATE ML/MIN/1.73 SQ M.PREDICTED 78.0 mL/min/1.73m*2 Normal >60.0 [facility] Comment on above: Result Comment: [facility]???s estimated glomerular filtration rate (eGFR) [...] of individuals. Performed By: #### L [id number] ####[facility] ([facility] [place] [address] Glucose [Mass/Vol] 134 mg/dL High 70-100 [facility] Comment on above: Performed By: #### L [id number] ####[facility] ([facility] [place] [address] Potassium [Moles/Vol] 3.4 mmol/L Low 3.5-5.1 [facility] Comment on above: Performed By: #### L [id number] ####[facility] [place] [address] Sodium [Moles/Vol] 141 mmol/L Normal 136-145 [facility] Comment on above: Performed By: #### L [id number] ####[facility] ([facility] [place] [address] Urea nitrogen [Mass/Vol] 24 mg/dL Normal 7-25 [facility] Comment on above: Performed By: #### L [id number] ####[facility] [place] [address] UREA NITROGEN/CREATININE (MASS RATIO) IN SER/PLAS 24.2 Normal [facility] Comment on above: Performed By: #### L [id number] ####[facility] ([facility] [place] [address] Anion gap [Moles/Vol] 10 mmol/L Normal 7-20 [facility] Comment on above: Performed By: #### L [id number] ####[facility] ([facility])[address] [place] [address] Calcium [Mass/Vol] 8.4 mg/dL Low 8.6-10.3 [facility] Comment on above: Performed By: #### L [id number] ####[facility] ([facility])[address] [place] [address] Chloride [Moles/Vol] 105 mmol/L Normal 98-107 [facility] Comment on above: Performed By: #### L [id number] ####[facility] ([facility])[address] [place] [address] CO2 [Moles/Vol] 28 mmol/L Normal 21-31 [facility] Comment on above: Performed By: #### L [id number] ####[facility] ([facility])[address] [place] [address] Creatinine [Mass/Vol] 1.06 mg/dL Normal 0.70-1.30 [facility] Comment on above: Performed By: #### L [id number] ####[facility])[address] [place] [address] GLOMERULAR FILTRATION RATE ML/MIN/1.73 SQ M.PREDICTED 71.8 mL/min/1.73m*2 Normal >60.0 [facility] Comment on above: Result Comment: [facility]???s estimated glomerular filtration rate (eGFR) [...] of individuals. Performed By: #### L [id number] ####[facility] [place] [address] Glucose [Mass/Vol] 141 mg/dL High 70-100 [facility] Comment on above: Performed By: #### L [id number] ####[facility] [place] [address] Potassium [Moles/Vol] 3.5 mmol/L Normal 3.5-5.1 [facility] Comment on above: Performed By: #### L [id number] ####[facility] [place] [address] Sodium [Moles/Vol] 139 mmol/L Normal 136-145 [facility] Comment on above: Performed By: #### L [id number] ####[facility] ([facility] [place] [address] Urea nitrogen [Mass/Vol] 23 mg/dL Normal 7-25 [facility] Comment on above: Performed By: #### L [id number] ####[facility] ([facility])[address] [place] [address] UREA NITROGEN/CREATININE (MASS RATIO) IN SER/PLAS 21.7 Normal [facility] Comment on above: Performed By: #### L [id number] ####[facility] ([facility])[address] [place] [address] CBC WITH AUTO DIFFERENTIALon 02-29-2024 Basophils (Bld) [#/Vol] 0.01 10*3/uL Normal 0.00-0.20 [facility] Comment on above: Performed By: #### L [id number] ####[facility] ([facility])[address] [place] [address] Basophils/100 WBC (Bld) 0.2 % Normal 0.0-1.0 [facility] Comment on above: Performed By: #### L [id number] ####[facility] ([facility] [place] [address] Eosinophils (Bld) [#/Vol] 0.00 10*3/uL Normal 0.00-0.5 0 [facility] Comment on above: Performed By: #### L [id number] ####[facility] ([facility] [place] [address] Eosinophils/100 WBC (Bld) 0.0 % Normal 0.0-6.0 [facility] Comment on above: Performed By: #### L [id number] ####[facility] ([facility])[address] [place] [address] Erythrocyte distribution width (RBC) [Ratio] 12.8 % Normal 11.5-15.[address] [facility] Comment on above: Performed By: #### L [id number] ####[facility] ([facility] [place] [address] ERYTHROCYTE MEAN CORPUSCULAR HEMOGLOBIN CONCENTRATION (G/DL) BY AUTOMATED 32.0 g/dL Normal 32.0-35.0 [facility] Comment on above: Performed By: #### L [id number] ####[facility] ([facility])[address] [place] [address] Hematocrit (Bld) [Volume fraction] 38.7 % Low 39.0-55.0 [facility] Comment on above: Performed By: #### L [id number] ####[facility] ([facility])[address] [place] [address] Hemoglobin (Bld) [Mass/Vol] 12.4 g/dL Low 13.0-17.0 [facility] Comment on above: Performed By: #### L [id number] ####[facility] ([facility])[address] [place] [address] Immature granulocytes (Bld) [#/Vol] 0.04 10*3/uL Normal 0.00-0.20 [facility] Comment on above: Performed By: #### L [id number] ####[facility] ([facility])[address] [place] [address] Immature granulocytes/100 WBC (Bld) 0.7 % Normal 0.0-1.0 [facility] Comment on above: Performed By: #### L [id number] ####[facility] ([facility])[address] [place] [address] IMMATURE PLATELET FRACTION % 4.9 % Normal 0.8-6.3 [facility] Comment on above: Performed By: #### L [id number] ####[facility] ([facility])[address] [place] [address] Lymphocytes (Bld) [#/Vol] 0.38 10*3/uL Low 1.20-4.0 0 [facility] Comment on above: Performed By: #### L [id number] ####[facility] ([facility])[address] [place] [address] Lymphocytes/100 WBC (Bld) 6.2 % Low 20.0-45.0 [facility] Comment on above: Performed By: #### L [id number] ####[facility] ([facility])[address] [place] [address] MCH (RBC) [Entitic mass] 32.0 pg Normal 27.0-33.0 [facility] Comment on above: Performed By: #### L [id number] ####[facility] ([facility])[address] [place] [address] MCV (RBC) [Entitic vol] 100.0 fL High 82.0-98.0 [facility] Comment on above: Performed By: #### L [id number] ####[facility] ([facility])[address] [place] [address] Monocytes (Bld) [#/Vol] 0.35 10*3/uL Normal 0.10-1.00 [facility] Comment on above: Performed By: #### L [id number] ####[facility] ([facility])[address] [place] [address] Monocytes/100 WBC (Bld) 5.7 % Normal 5.0-12.0 [facility] Comment on above: Performed By: #### L [id number] ####[facility] [place] [address] Neutrophils (Bld) [#/Vol] 5.36 10*3/uL Normal 1.60-7.6 0 [facility] Comment on above: Performed By: #### L [id number] ####[facility] ([facility])[address] [place] [address] Neutrophils/100 WBC (Bld) 87.2 % High 40.0-72.0 [facility] Comment on above: Performed By: #### L [id number] ####[facility] ([facility])[address] [place] [address] NRBC (PER 100 WBCS) BY AUTOMATED COUNT 0.0 % Normal 0 [facility] Comment on above: Performed By: #### L [id number] ####[facility] ([facility])[address] [place] [address] PLATELETS (10*3/UL) IN BLOOD AUTOMATED COUNT 122 10*3/uL Low 150-400 [facility] Comment on above: Performed By: #### L [id number] ####[facility] ([facility])[address] [place] [address] RBC (Bld) [#/Vol] 3.87 10*6/uL Low 4.20-5.70 [facility] Comment on above: Performed By: #### L [id number] ####[facility] ([facility])[address] [place] [address] WBC (Bld) [#/Vol] 6.14 10*3/uL Normal 4.00-10.60 [facility] Comment on above: Performed By: #### L [id number] ####[facility] ([facility])[address] [place] [address] CONSULTon 02-29-2024 CONSULT Normal [facility] LEGIONELLA ANTIGEN, URINEon 02-29-2024 LEGIONELLA AG, UR Negative Normal NEG [facility] Comment on above: Result Comment: L. p neumophila serogroup 1 antigen not detected.A negative result does not exclude infection with Leginella pnemophila serogroup 1 nor does it rule out other microbial-caused respiratory infections of disease caused by other serogroups of Legionella pneumophila.Test Performed by [facility] [address] [place] [id number] - Released 03/01/2024 15:07 Performed By: #### L [id number] ####[facility] [id number] [place] [address] MAGNESIUMon 02-29-2024 Magnesium [Mass/Vol] 2.0 mg/dL Normal 1.9-2.7 [facility] Comment on above: Performed By: #### L [id number] ####[facility] ([facility])[address] [place] [address] Magnesium [Mass/Vol] 1.9 mg/dL Normal 1.9-2.7 [facility] Comment on above: Performed By: #### L [id number] ####[facility] ([facility])[address] [place] [address] PHOSPHORUSon 02-29-2024 Magnesium [Mass/Vol] 2.4 mg/dL Low 2.5-5.0 [facility] Comment on above: Performed By: #### L [id number] ####[facility] ([facility])[address] [place] [address] RESPIRATORY VIRUS PCR PANELo n 02-29-2024 ADENOVIRUS DETECTION BY PCR Not detected Normal Not Detected [facility] Comment on above: Order Comment: Testi ng methodology is a multiplexed nucleic acid test intended for the simultaneous qualitative detection and differentiation of nucleic acids from multiple viral and bacterial respiratory organisms in nasopharyngeal swabs (RENEWABLE ENERGY TRADER). Performed By: #### L [id number] ####[facility] ([facility])[address] [place] [address] B. PARAPERTUSSIS DNA Not detected Normal Not Detected [facility] Comment on above: Order Comment: Testi ng methodology is a multiplexed nucleic acid test intended for the simultaneous qualitative detection and differentiation of nucleic acids from multiple viral and bacterial respiratory organisms in nasopharyngeal swabs (RENEWABLE ENERGY TRADER). Performed By: #### L [id number] ####[facility] ([facility])[address] [place] [address] BORDETELLA PERTUSSIS DNA PRESENCE IN UNSPECIFIED SPECIMEN BY CA* Not detected Normal Not Detected [facility] Comment on above: Order Comment: Testi ng methodology is a multiplexed nucleic acid test intended for the simultaneous qualitative detection and differentiation of nucleic acids from multiple viral and bacterial respiratory organisms in nasopharyngeal swabs (RENEWABLE ENERGY TRADER). Performed By: #### L [id number] ####[facility] ([facility])[address] [place] [address] CHLAMYDOPHILA PNEUMONIAE Not detected Normal Not Detected [facility] Comment on above: Order Comment: Testi ng methodology is a multiplexed nucleic acid test intended for the simultaneous qualitative detection and differentiation of nucleic acids from multiple viral and bacterial respiratory organisms in nasopharyngeal swabs (RENEWABLE ENERGY TRADER). Performed By: #### L [id number] ####[facility] ([facility])[address] [place] [address] CORONAVIRUS 229E Not detected Normal Not Detected [facility] Comment on above: Order Comment: Testi ng methodology is a multiplexed nucleic acid test intended for the simultaneous qualitative detection and differentiation of nucleic acids from multiple viral and bacterial respiratory organisms in nasopharyngeal swabs (RENEWABLE ENERGY TRADER). Performed By: #### L [id number] ####[facility] ([facility])[address] [place] [address] CORONAVIRUS HKU1 Not detected Normal Not Detected [facility] Comment on above: Order Comment: Testi ng methodology is a multiplexed nucleic acid test intended for the simultaneous qualitative detection and differentiation of nucleic acids from multiple viral and bacterial respiratory organisms in nasopharyngeal swabs (RENEWABLE ENERGY TRADER). Performed By: #### L [id number] ####[facility] ([facility])[address] [place] [address] CORONAVIRUS NL63 Not detected Normal Not Detected [facility] Comment on above: Order Comment: Testi ng methodology is a multiplexed nucleic acid test intended for the simultaneous qualitative detection and differentiation of nucleic acids from multiple viral and bacterial respiratory organisms in nasopharyngeal swabs (RENEWABLE ENERGY TRADER). Performed By: #### L [id number] ####[facility] ([facility])[address] [place] [address] CORONAVIRUS OC43 Not detected Normal Not Detected [facility] Comment on above: Order Comment: Testi ng methodology is a multiplexed nucleic acid test intended for the simultaneous qualitative detection and differentiation of nucleic acids from multiple viral and bacterial respiratory organisms in nasopharyngeal swabs (RENEWABLE ENERGY TRADER). Performed By: #### L [id number] ####[facility] ([facility])[address] [place] [address] HUMAN METAPNEUMOVIRUS Not detected Normal Not Detected [facility] Comment on above: Order Comment: Testi ng methodology is a multiplexed nucleic acid test intended for the simultaneous qualitative detection and differentiation of nucleic acids from multiple viral and bacterial respiratory organisms in nasopharyngeal swabs (RENEWABLE ENERGY TRADER). Performed By: #### L [id number] ####[facility] ([facility])[address] [place] [address] HUMAN RHINOVIRUS+ENTEROVIRUS Not detected Normal Not Detected [facility] Comment on above: Order Comment: Testi ng methodology is a multiplexed nucleic acid test intended for the simultaneous qualitative detection and differentiation of nucleic acids from multiple viral and bacterial respiratory organisms in nasopharyngeal swabs (RENEWABLE ENERGY TRADER). Performed By: #### L [id number] ####[facility] ([facility])[address] [address] INFLUENZA A Not detected Normal Not Detected [facility] Comment on above: Order Comment: Testi ng methodology is a multiplexed nucleic acid test intended for the simultaneous qualitative detection and differentiation of nucleic acids from multiple viral and bacterial respiratory organisms in nasopharyngeal swabs (RENEWABLE ENERGY TRADER). Performed By: #### L [id number] ####[facility] ([facility])[address] [address] INFLUENZA B Not detected Normal Not Detected [facility] Comment on above: Order Comment: Testi ng methodology is a multiplexed nucleic acid test intended for the simultaneous qualitative detection and differentiation of nucleic acids from multiple viral and bacterial respiratory organisms in nasopharyngeal swabs (RENEWABLE ENERGY TRADER). Performed By: #### L [id number] ####[facility] ([facility])[address] [place] [address] MYCOPLASMA PNEUMONIAE Not detected Normal Not Detected [facility] Comment on above: Order Comment: Testi ng methodology is a multiplexed nucleic acid test intended for the simultaneous qualitative detection and differentiation of nucleic acids from multiple viral and bacterial respiratory organisms in nasopharyngeal swabs (RENEWABLE ENERGY TRADER). Performed By: #### L [id number] ####[facility] ([facility])[address] [place] [address] PARAINFLUENZA 1 Not detected Normal Not Detected [facility] Comment on above: Order Comment: Testi ng methodology is a multiplexed nucleic acid test intended for the simultaneous qualitative detection and differentiation of nucleic acids from multiple viral and bacterial respiratory organisms in nasopharyngeal swabs (RENEWABLE ENERGY TRADER). Performed By: #### L [id number] ####[facility] ([facility])[address] [place] [address] PARAINFLUENZA 2 Not detected Normal Not Detected [facility] Comment on above: Order Comment: Testi ng methodology is a multiplexed nucleic acid test intended for the simultaneous qualitative detection and differentiation of nucleic acids from multiple viral and bacterial respiratory organisms in nasopharyngeal swabs (RENEWABLE ENERGY TRADER). Performed By: #### L [id number] ####[facility] ([facility])[address] [place] [address] PARAINFLUENZA 3 Not detected Normal Not Detected [facility] Comment on above: Order Comment: Testi ng methodology is a multiplexed nucleic acid test intended for the simultaneous qualitative detection and differentiation of nucleic acids from multiple viral and bacterial respiratory organisms in nasopharyngeal swabs (RENEWABLE ENERGY TRADER). Performed By: #### L [id number] ####[facility] ([facility])[address] [address] PARAINFLUENZA 4 Not detected Normal Not Detected [facility] Comment on above: Order Comment: Testi ng methodology is a multiplexed nucleic acid test intended for the simultaneous qualitative detection and differentiation of nucleic acids from multiple viral and bacterial respiratory organisms in nasopharyngeal swabs (RENEWABLE ENERGY TRADER). Performed By: #### L [id number] ####[facility] ([facility])[address] [place] [address] RESP SYNCYTIAL VIRUS Not detected Normal Not Detected [facility] Comment on above: Order Comment: Testi ng methodology is a multiplexed nucleic acid test intended for the simultaneous qualitative detection and differentiation of nucleic acids from multiple viral and bacterial respiratory organisms in nasopharyngeal swabs (RENEWABLE ENERGY TRADER). Performed By: #### L [id number] ####[facility] ([facility])[address] [place] [address] SARS-CoV-2 (COVID-19) RNA TAI+probe Ql (Unsp spec) Not detected Normal Not Detected [facility] Comment on above: Order Comment: Testi ng methodology is a multiplexed nucleic acid test intended for the simultaneous qualitative detection and differentiation of nucleic acids from multiple viral and bacterial respiratory organisms in nasopharyngeal swabs (RENEWABLE ENERGY TRADER). Performed By: #### L [id number] ####[facility] ([facility])[address] [place] [address] ANTI-XA (HEPARIN LEVEL)on HEPARIN UNFRACTIONATED (U/ML) IN PPP BY CHROMOGENIC METHOD <0.10 Invalid Interpretation Code 0.3-0.7 [facility] Comment on above: Order Comment: Check anti-Xa level every 6 hours while on heparin infusion, or per protocol. Result Comment: Ricarda roxaban and Apixaban will interfere with the anti Xa assay used to monitor UFH and LMWH. Performed By: #### L [id number] ####[facility] ([facility])[address] [place] [address] BASIC METABOLIC PANELon 02-12 Anion gap [Moles/Vol] 10 mmol/L Normal 7-20 [facility] Comment on above: Performed By: #### L [id number] ####[facility] ([facility])[address] [place] [address] Calcium [Mass/Vol] 8.0 mg/dL Low 8.6-10.3 [facility] Comment on above: Performed By: #### L [id number] ####[facility] ([facility])[address] [place] [address] Chloride [Moles/Vol] 102 mmol/L Normal 98-107 [facility] Comment on above: Performed By: #### L [id number] ####[facility] [place] [address] CO2 [Moles/Vol] 30 mmol/L Normal 21-31 [facility] Comment on above: Performed By: #### L [id number] ####[facility] [place] [address] Creatinine [Mass/Vol] 1.22 mg/dL Normal 0.70-1.30 [facility] Comment on above: Performed By: #### L [id number] ####[facility] ([facility])[address] [place] [address] GLOMERULAR FILTRATION RATE ML/MIN/1.73 SQ M.PREDICTED 60.7 mL/min/1.73m*2 Normal >60.0 [facility] Comment on above: Result Comment: [facility]???s estimated glomerular filtration rate (eGFR) [...] of individuals. Performed By: #### L [id number] ####[facility] ([facility])[address] [place] [address] Glucose [Mass/Vol] 94 mg/dL Normal 70-100 [facility] Comment on above: Performed By: #### L [id number] ####[facility] ([facility])[address] [place] [address] Potassium [Moles/Vol] 3.0 mmol/L Low 3.5-5.1 [facility] Comment on above: Performed By: #### L [id number] ####[facility] ([facility])[address] [place] [address] Sodium [Moles/Vol] 139 mmol/L Normal 136-145 [facility] Comment on above: Performed By: #### L [id number] ####[facility] ([facility])[address] [place] [address] Urea nitrogen [Mass/Vol] 16 mg/dL Normal 7-25 [facility] Comment on above: Performed By: #### L [id number] ####[facility] ([facility])[address] [place] [address] UREA NITROGEN/CREATININE (MASS RATIO) IN SER/PLAS 13.1 Normal [facility] Comment on above: Performed By: #### L [id number] ####[facility] [place] [address] CBC WITH AUTO DIFFERENTIALon 02-28-2024 Basophils (Bld) [#/Vol] 0.03 10*3/uL Normal 0.00-0.20 [facility] Comment on above: Performed By: #### L [id number] ####[facility] ([facility])[address] [place] [address] Basophils/100 WBC (Bld) 0.3 % Normal 0.0-1.0 [facility] Comment on above: Performed By: #### L [id number] ####[facility] ([facility])[address] [place] [address] Eosinophils (Bld) [#/Vol] 0.00 10*3/uL Normal 0.00-0.5 0 [facility] Comment on above: Performed By: #### L [id number] ####[facility] ([facility])[address] [place] [address] Eosinophils/100 WBC (Bld) 0.0 % Normal 0.0-6.0 [facility] Comment on above: Performed By: #### L [id number] ####[facility] [place] [address] Erythrocyte distribution width (RBC) [Ratio] 13.0 % Normal 11.5-15.[address] [facility] Comment on above: Performed By: #### L [id number] ####[facility] ([facility])[address] [place] [address] ERYTHROCYTE MEAN CORPUSCULAR HEMOGLOBIN CONCENTRATION (G/DL) BY AUTOMATED 32.3 g/dL Normal 32.0-35.0 [facility] Comment on above: Performed By: #### L [id number] ####[facility] ([facility])[address] [place] [address] Hematocrit (Bld) [Volume fraction] 37.5 % Low 39.0-55.0 [facility] Comment on above: Performed By: #### L [id number] ####[facility] ([facility])[address] [place] [address] Hemoglobin (Bld) [Mass/Vol] 12.1 g/dL Low 13.0-17.0 [facility] Comment on above: Performed By: #### L [id number] ####[facility] ([facility])[address] [place] [address] Immature granulocytes (Bld) [#/Vol] 0.06 10*3/uL Normal 0.00-0.20 [facility] Comment on above: Performed By: #### L [id number] ####[facility] ([facility])[address] [place] [address] Immature granulocytes/100 WBC (Bld) 0.6 % Normal 0.0-1.0 [facility] Comment on above: Performed By: #### L [id number] ####[facility] ([facility])[address] [place] [address] Lymphocytes (Bld) [#/Vol] 0.56 10*3/uL Low 1.20-4.0 0 [facility] Comment on above: Performed By: #### L [id number] ####[facility] ([facility])[address] [place] [address] Lymphocytes/100 WBC (Bld) 6.1 % Low 20.0-45.0 [facility] Comment on above: Performed By: #### L [id number] ####[facility] ([facility])[address] [place] [address] MCH (RBC) [Entitic mass] 32.3 pg Normal 27.0-33.0 [facility] Comment on above: Performed By: #### L [id number] ####[facility] ([facility])[address] [place] [address] MCV (RBC) [Entitic vol] 100.0 fL High 82.0-98.0 [facility] Comment on above: Performed By: #### L [id number] ####[facility] ([facility])[address] [place] [address] Monocytes (Bld) [#/Vol] 1.19 10*3/uL High 0.10-1.00 [facility] Comment on above: Performed By: #### L [id number] ####[facility] ([facility])[address] [place] [address] Monocytes/100 WBC (Bld) 12.9 % High 5.0-12.0 [facility] Comment on above: Performed By: #### L [id number] ####[facility] ([facility])[address] [place] [address] Neutrophils (Bld) [#/Vol] 7.41 10*3/uL Normal 1.60-7.6 0 [facility] Comment on above: Performed By: #### L [id number] ####[facility] ([facility])[address] [place] [address] Neutrophils/100 WBC (Bld) 80.1 % High 40.0-72.0 [facility] Comment on above: Performed By: #### L [id number] ####[facility] [place] [address] NRBC (PER 100 WBCS) BY AUTOMATED COUNT 0.0 % Normal 0 [facility] Comment on above: Performed By: #### L [id number] ####[facility] [place] [address] PLATELETS (10*3/UL) IN BLOOD AUTOMATED COUNT 146 10*3/uL Low 150-400 [facility] Comment on above: Performed By: #### L [id number] ####[facility] ([facility])[address] [place] [address] RBC (Bld) [#/Vol] 3.75 10*6/uL Low 4.20-5.70 [facility] Comment on above: Performed By: #### L [id number] ####[facility] ([facility] [place] [address] WBC (Bld) [#/Vol] 9.25 10*3/uL Normal 4.00-10.60 [facility] Comment on above: Performed By: #### L [id number] ####[facility] ([facility])[address] [place] [address] MAGNESIUMon 02-28-2024 Magnesium [Mass/Vol] 1.5 mg/dL Low 1.9-2.7 [facility] Comment on above: Performed By: #### L [id number] ####[facility] ([facility] [place] [address] PHOSPHORUSon 02-28-2024 Magnesium [Mass/Vol] 2.7 mg/dL Normal 2.5-5.0 [facility] Comment on above: Performed By: #### L [id number] ####[facility] [place] [address] PROCALCITONIN TESTon 024 PROCALCITONIN IN BLOOD 3.55 ng/mL Critically high 0.00-0.1 0 [facility] Comment on above: Result [...] and initial PCT<0.5ng/mL Performed By: #### L [id number] ####[facility] [place] [address] URINALYSIS WITH MICROSCOPICo n 02-28-2024 BILIRUBIN, TOTAL PRESENCE IN URINE Negative Normal Negative [facility] Comment on above: Performed By: #### L [id number] ####[facility] ([facility])[address] [place] [address] Clarity (U) Cloudy Abnormal Clear [facility] Comment on above: Performed By: #### L [id number] ####[facility] ([facility])[address] [place] [address] Color (U) Yellow Normal Colorless, Yellow, Light-Placer ow [facility] Comment on above: Performed By: #### L [id number] ####[facility] ([facility])[address] [place] [address] GLUCOSE (MG/DL) IN URINE Normal Normal Normal [facility] Comment on above: Performed By: #### L [id number] ####[facility] ([facility])[address] [place] [address] HEMOGLOBIN PRESENCE IN URINE Moderate Abnormal Negative [facility] Comment on above: Performed By: #### L [id number] ####[facility] ([facility])[address] [place] [address] Ketones Ql (U) Negative Normal Negative [facility] Comment on above: Performed By: #### L [id number] ####[facility] ([facility])[address] [place] [address] LEUKOCYTE ESTERASE PRESENCE IN URINE BY TEST STRIP Large Abnormal Negative [facility] Comment on above: Performed By: #### L [id number] ####[facility] ([facility])[address] [place] [address] MUCUS (#/LPF) IN URINE SEDIMENT Occasional Normal None Seen, Occasional , Few [facility] Comment on above: Performed By: #### L [id number] ####[facility] ([facility])[address] [place] [address] NITRITE PRESENCE IN URINE Negative Normal Negative [facility] Comment on above: Performed By: #### L [id number] ####[facility] ([facility])[address] [place] [address] pH (U) 6.0 [pH] Normal 5.0-8.0 [facility] Comment on above: Performed By: #### L [id number] ####[facility] ([facility])[address] [place] [address] Protein (U) [Mass/Vol] 30 mg/dL Abnormal Negative [facility] Comment on above: Performed By: #### L [id number] ####[facility] ([facility])[address] [place] [address] RBC (#/HPF) IN URINE SEDIMENT 11-20 Abnormal None Seen, 0-2 [facility] Comment on above: Performed By: #### L [id number] ####[facility] ([facility])[address] [place] [address] Specific gravity (U) [Rel density] 1.018 Normal 1.010-1.03 0 [facility] Comment on above: Performed By: #### L [id number] ####[facility] ([facility])[address] [place] [address] SQUAMOUS EPITHELIAL CELLS (#/LPF) IN URINE SEDIMENT Few Normal None Seen, Occasional , Few [facility] Comment on above: Performed By: #### L [id number] ####[facility] ([facility])[address] [place] [address] UROBILINOGEN (MG/DL) IN URINE Normal Normal Normal [facility] Comment on above: Performed By: #### L [id number] ####[facility] ([facility])[address] [place] [address] WBC (LEUKOCYTE) (#/HPF) IN URINE SEDIMENT >50 Abnormal None Seen, 0-2 [facility] Comment on above: Performed By: #### L [id number] ####[facility] ([facility])[address] [place] [address] WBC (LEUKOCYTE) CLUMPS (#/HPF) IN URINE SEDIMENT Present Abnormal None Seen [facility] Comment on above: Performed By: #### L [id number] ####[facility] ([facility])[address] [place] [address] YEAST, BUDDING (#/HPF) IN URINE Occasional Abnormal None Seen [facility] Comment on above: Performed By: #### L [id number] ####[facility] ([facility])[address] [place] [address] VENOUS BLOOD GAS WITH IONIZE D CALCIUMon 02-28-2024 Base excess Calc (BldV) [Moles/Vol] 3.8 mmol/L Normal [facility] Comment on above: Order Comment: Bipap 16/8 RR 14 FiO2 75% Performed By: #### L [id number] ####[facility] [id number] [place] [address] [place] CALCIUM IONIZED (MMOL/L) IN BLOOD 1.06 mmol/L Low 1.15-1.33 [facility] Comment on above: Order Comment: Bipap 16/8 RR 14 FiO2 75% Performed By: #### L [id number] ####[facility] [id number] [place] [address] [place] CO2 (BldV) [Partial pressure] 46 mm[Hg] Normal 40-50 [facility] Comment on above: Order Comment: Bipap 16/8 RR 14 FiO2 75% Performed By: #### L [id number] ####[facility] [id number] [place] [address] [place] HCO3 (Bld) [Moles/Vol] 29.2 mmol/L Normal [facility] Comment on above: Order Comment: Bipap 16/8 RR 14 FiO2 75% Performed By: #### L [id number] ####[facility] [id number] [place] [address] [place] Oxygen (BldV) [Partial pressure] 47 mm[Hg] High 35-45 [facility] Comment on above: Order Comment: Bipap 16/8 RR 14 FiO2 75% Performed By: #### L [id number] ####[facility] [id number] [place] [address] [facility] OXYGEN SATURATION (%) IN VENOUS BLOOD 78.8 % High 65.0-75.0 [facility] Comment on above: Order Comment: Bipap 16/8 RR 14 FiO2 75% Performed By: #### L [id number] ####[facility] [id number] [place] [address] [facility] PH OF VENOUS BLOOD 7.41 Normal 7.31-7.41 [facility] Comment on above: Order Comment: Bipap 16/8 RR 14 FiO2 75% Performed By: #### L [id number] ####[facility] [id number] [place] [address] [facility] 30on 02-27-2024 30 Normal [facility] 30 Normal [facility] ANESon 02-27-2024 ANES Normal [facility] ANTI-XA (HEPARIN LEVEL)on HEPARIN UNFRACTIONATED (U/ML) IN PPP BY CHROMOGENIC METHOD 0.51 IU/mL Normal 0.3-0.7 [facility] Comment on above: Result Comment: Ricarda roxaban and Apixaban will interfere with the anti Xa assay used to monitor UFH and LMWH. Performed By: #### L [id number] ####[facility] ([facility])[address] [place] [address] HEPARIN UNFRACTIONATED (U/ML) IN PPP BY CHROMOGENIC METHOD 0.28 IU/mL Low 0.3-0.7 [facility] Comment on above: Order Comment: Check anti-Xa level every 6 hours while on heparin infusion, or per protocol. Result Comment: Ricarda roxaban and Apixaban will interfere with the anti Xa assay used to monitor UFH and LMWH. Performed By: #### L [id number] ####[facility] ([facility])[address] [place] [address] HEPARIN UNFRACTIONATED (U/ML) IN PPP BY CHROMOGENIC METHOD 0.21 IU/mL Low 0.3-0.7 [facility] Comment on above: Result Comment: Basom roxaban and Apixaban will interfere with the anti Xa assay used to monitor UFH and LMWH. Performed By: #### L [id number] ####[facility] ([facility])[address] [place] [address] BASIC METABOLIC PANELon 02-12 Anion gap [Moles/Vol] 9 mmol/L Normal 7-20 [facility] Comment on above: Performed By: #### L [id number] ####[facility] ([facility])[address] [place] [address] Calcium [Mass/Vol] 8.4 mg/dL Low 8.6-10.3 [facility] Comment on above: Performed By: #### L [id number] ####[facility] ([facility])[address] [place] [address] Chloride [Moles/Vol] 105 mmol/L Normal 98-107 [facility] Comment on above: Performed By: #### L [id number] ####[facility] ([facility])[address] [place] [address] CO2 [Moles/Vol] 27 mmol/L Normal 21-31 [facility] Comment on above: Performed By: #### L [id number] ####[facility] ([facility])[address] [place] [address] Creatinine [Mass/Vol] 0.88 mg/dL Normal 0.70-1.30 [facility] Comment on above: Performed By: #### L [id number] ####[facility] ([facility])[address] [place] [address] GLOMERULAR FILTRATION RATE ML/MIN/1.73 SQ M.PREDICTED 88.0 mL/min/1.73m*2 Normal >60.0 [facility] Comment on above: Result Comment: [facility]???s estimated glomerular filtration rate (eGFR) [...] of individuals. Performed By: #### L [id number] ####[facility] ([facility])[address] [place] [address] Glucose [Mass/Vol] 116 mg/dL High 70-100 [facility] Comment on above: Performed By: #### L [id number] ####[facility] ([facility])[address] [place] [address] Potassium [Moles/Vol] 3.8 mmol/L Normal 3.5-5.1 [facility] Comment on above: Performed By: #### L [id number] ####[facility] ([facility])[address] [place] [address] Sodium [Moles/Vol] 137 mmol/L Normal 136-145 [facility] Comment on above: Performed By: #### L [id number] ####[facility] ([facility])[address] [place] [address] Urea nitrogen [Mass/Vol] 11 mg/dL Normal 7-25 [facility] Comment on above: Performed By: #### L [id number] ####[facility] ([facility])[address] [place] [address] UREA NITROGEN/CREATININE (MASS RATIO) IN SER/PLAS 12.5 Normal [facility] Comment on above: Performed By: #### L [id number] ####[facility] ([facility])[address] [place] [address] BLOOD CULTUREon 02-27-2024 Bacteria identified Cx Nom (Bld) No growth at [address] [facility] Comment on above: Performed By: #### L [id number] ####[facility] ([facility])[address] [place] [address] CALCIUM, IONIZEDon CALCIUM IONIZED (MMOL/L) IN BLOOD 1.20 mmol/L Normal 1.15-1.33 [facility] Comment on above: Performed By: #### C ALCIUM, IONIZED ####[facility] [id number] [place] [address] [place] CBC WITH AUTO DIFFERENTIALon 02-27-2024 Basophils (Bld) [#/Vol] 0.02 10*3/uL Normal 0.00-0.20 [facility] Comment on above: Performed By: #### L [id number] ####[facility] ([facility])[address] [place] [address] Basophils/100 WBC (Bld) 0.4 % Normal 0.0-1.0 [facility] Comment on above: Performed By: #### L [id number] ####[facility] ([facility])[address] [place] [address] Eosinophils (Bld) [#/Vol] 0.03 10*3/uL Normal 0.00-0.5 0 [facility] Comment on above: Performed By: #### L [id number] ####[facility] [place] [address] Eosinophils/100 WBC (Bld) 0.7 % Normal 0.0-6.0 [facility] Comment on above: Performed By: #### L [id number] ####[facility] [place] [address] Erythrocyte distribution width (RBC) [Ratio] 13.1 % Normal 11.5-15.[address] [facility] Comment on above: Performed By: #### L [id number] ####[facility] [place] [address] ERYTHROCYTE MEAN CORPUSCULAR HEMOGLOBIN CONCENTRATION (G/DL) BY AUTOMATED 31.8 g/dL Low 32.0-35.0 [facility] Comment on above: Performed By: #### L [id number] ####[facility] [place] [address] Hematocrit (Bld) [Volume fraction] 37.7 % Low 39.0-55.0 [facility] Comment on above: Performed By: #### L [id number] ####[facility] ([facility])[address] [place] [address] Hemoglobin (Bld) [Mass/Vol] 12.0 g/dL Low 13.0-17.0 [facility] Comment on above: Performed By: #### L [id number] ####[facility] ([facility])[address] [place] [address] Immature granulocytes (Bld) [#/Vol] 0.02 10*3/uL Normal 0.00-0.20 [facility] Comment on above: Performed By: #### L [id number] ####[facility] ([facility])[address] [place] [address] Immature granulocytes/100 WBC (Bld) 0.4 % Normal 0.0-1.0 [facility] Comment on above: Performed By: #### L [id number] ####[facility] ([facility])[address] [place] [address] IMMATURE PLATELET FRACTION % 3.0 % Normal 0.8-6.3 [facility] Comment on above: Performed By: #### L [id number] ####[facility] ([facility])[address] [place] [address] Lymphocytes (Bld) [#/Vol] 0.73 10*3/uL Low 1.20-4.0 0 [facility] Comment on above: Performed By: #### L [id number] ####[facility] ([facility])[address] [place] [address] Lymphocytes/100 WBC (Bld) 16.0 % Low 20.0-45.0 [facility] Comment on above: Performed By: #### L [id number] ####[facility] ([facility])[address] [place] [address] MCH (RBC) [Entitic mass] 32.1 pg Normal 27.0-33.0 [facility] Comment on above: Performed By: #### L [id number] ####[facility] ([facility])[address] [place], [place] [address] MCV (RBC) [Entitic vol] 100.8 fL High 82.0-98.0 [facility] Comment on above: Performed By: #### L [id number] ####[facility] [place], [place] [address] Monocytes (Bld) [#/Vol] 0.85 10*3/uL Normal 0.10-1.00 [facility] Comment on above: Performed By: #### L [id number] ####[facility] ([facility])[address] [place], [place] [address] Monocytes/100 WBC (Bld) 18.7 % High 5.0-12.0 [facility] Comment on above: Performed By: #### L [id number] ####[facility] ([facility])[address] [place] [address] Neutrophils (Bld) [#/Vol] 2.90 10*3/uL Normal 1.60-7.6 0 [facility] Comment on above: Performed By: #### L [id number] ####[facility] ([facility])[address] [place], [place] [address] Neutrophils/100 WBC (Bld) 63.8 % Normal 40.0-72.0 [facility] Comment on above: Performed By: #### L [id number] ####[facility] ([facility])[address] [place] [address] NRBC (PER 100 WBCS) BY AUTOMATED COUNT 0.0 % Normal 0 [facility] Comment on above: Performed By: #### L [id number] ####[facility] ([facility])[address] [place] [address] PLATELETS (10*3/UL) IN BLOOD AUTOMATED COUNT 134 10*3/uL Low 150-400 [facility] Comment on above: Performed By: #### L [id number] ####[facility] ([facility])[address] [place] [address] RBC (Bld) [#/Vol] 3.74 10*6/uL Low 4.20-5.70 [facility] Comment on above: Performed By: #### L [id number] ####[facility] ([facility])[address] [place] [address] WBC (Bld) [#/Vol] 4.55 10*3/uL Normal 4.00-10.60 [facility] Comment on above: Performed By: #### L [id number] ####[facility])[address] [place] [address] HPon 02-27-2024 HP Normal [facility] POTASSIUM, WHOLE BLOODon Potassium [Moles/Vol] 3.4 mmol/L Low 3.5-5.1 [facility] Comment on above: Performed By: #### P OTASSIUM, WHOLE BLOOD ####[facility] [id number] [place] [address] [place] SODIUM, WHOLE BLOODon 2023 SODIUM, WHOLE BLOOD 135 Low 136-145 [facility] Comment on above: Performed By: #### S ODIUM, WHOLE BLOOD ####[facility] [id number] [place] [address] [place] TROPONIN Ion 02-27-2024 Troponin I.cardiac [Mass/Vol] 0.04 ng/mL Normal 0.00-0.04 [facility] Comment on above: Performed By: #### L [id number] ####[facility] ([facility])[address] [place] [address] Troponin I.cardiac [Mass/Vol] 0.02 ng/mL Normal 0.00-0.04 [facility] Comment on above: Performed By: #### L [id number] ####[facility] ([facility])[address] [place] [address] Troponin I.cardiac [Mass/Vol] 0.01 ng/mL Normal 0.00-0.04 [facility] Comment on above: Performed By: #### L [id number] ####[facility] ([facility])[address] [place] [address] Troponin I.cardiac [Mass/Vol] 0.01 ng/mL Normal 0.00-0.04 [facility] Comment on above: Performed By: #### L [id number] ####[facility] ([facility])[address] [place] [address] Troponin I.cardiac [Mass/Vol] 0.02 ng/mL Normal 0.00-0.04 [facility] Comment on above: Performed By: #### L [id number] ####[facility] ([facility])[address] [place] [address] Troponin I.cardiac [Mass/Vol] 0.01 ng/mL Normal 0.00-0.04 [facility] Comment on above: Performed By: #### L [id number] ####[facility] ([facility] [place] [address] 30on 02-26-2024 30 The patient is Moderately Stable - Low risk of patient condition declining or worsening The patient's goals for the shift include The clinical goals for the shift include Over the shift, the patient did not make progress toward the following goals. Normal [facility] ANTI-XA (HEPARIN LEVEL)on HEPARIN UNFRACTIONATED (U/ML) IN PPP BY CHROMOGENIC METHOD 0.14 IU/mL Invalid Interpretation Code 0.3-0.7 [facility] Comment on above: Result Comment: Basom roxaban and Apixaban will interfere with the anti Xa assay used to monitor UFH and LMWH. Performed By: #### L [id number] ####[facility])[address] [place] [address] HEPARIN UNFRACTIONATED (U/ML) IN PPP BY CHROMOGENIC METHOD <0.10 Invalid Interpretation Code 0.3-0.7 [facility] Comment on above: Result Comment: Basom roxaban and Apixaban will interfere with the anti Xa assay used to monitor UFH and LMWH. Performed By: #### L [id number] ####[facility] ([facility])[address] [place] [address] APOLIPOPROTEIN B-100on 02-25 Magnesium [Mass/Vol] 50 mg/dL Low 66-133 [facility] Comment on above: Result Comment: REFE RENCE INTERVAL: Apolipoprotein BA desirable fasting serum Apo B concentration for the preventionof atherosclerotic cardiovascular disease in adults is less than90 mg/dL. A fasting serum Apo B concentration of 130 mg/dL orgreater corresponds to a LDL cholesterol concentration greaterthan 160 mg/dL and constitutes a risk enhancing factor foratherosclerotic cardiovascular disease in adults.Performed By: [employer] [place], [place] [id number] Director: Josh Olvera MD, PhDCLIA Number: [id number] Performed By: #### L [id number] ####[facility] [place] [address] APTTon 02-26-2024 ACTIVATED PARTIAL THROMBOPLASTIN TIME IN PPP BY COAGULATION ASSAY 32.6 Seconds Normal 25.0-35.0 [facility] Comment on above: Result Comment: Clin ical significance of the APTT is questionable in the presence of heparin. Performed By: #### L [id number] ####[facility])[address] [place] [address] B-TYPE NATRIURETIC PEPTIDEon 02-26-2024 Natriuretic peptide B (Bld) [Mass/Vol] 321 pg/mL High 0-100 [facility] Comment on above: Performed By: #### L [id number] ####[facility] [place] [address] CBC WITH AUTO DIFFERENTIALon 02-26-2024 Basophils (Bld) [#/Vol] 0.03 10*3/uL Normal 0.00-0.20 [facility] Comment on above: Performed By: #### L [id number] ####[facility] [place] [address] Basophils/100 WBC (Bld) 0.5 % Normal 0.0-1.0 [facility] Comment on above: Performed By: #### L [id number] ####[facility] [place] [address] Eosinophils (Bld) [#/Vol] 0.04 10*3/uL Normal 0.00-0.5 0 [facility] Comment on above: Performed By: #### L [id number] ####[facility] [place] [address] Eosinophils/100 WBC (Bld) 0.6 % Normal 0.0-6.0 [facility] Comment on above: Performed By: #### L [id number] ####[facility] [place] [address] Erythrocyte distribution width (RBC) [Ratio] 12.9 % Normal 11.5-15.[address] [facility] Comment on above: Performed By: #### L [id number] ####[facility] [place] [address] ERYTHROCYTE MEAN CORPUSCULAR HEMOGLOBIN CONCENTRATION (G/DL) BY AUTOMATED 31.2 g/dL Low 32.0-35.0 [facility] Comment on above: Performed By: #### L [id number] ####[facility] [place] [address] Hematocrit (Bld) [Volume fraction] 43.6 % Normal 39.0-55.0 [facility] Comment on above: Performed By: #### L [id number] ####[facility] [place] [address] Hemoglobin (Bld) [Mass/Vol] 13.6 g/dL Normal 13.0-17.0 [facility] Comment on above: Performed By: #### L [id number] ####[facility] [place] [address] Immature granulocytes (Bld) [#/Vol] 0.03 10*3/uL Normal 0.00-0.20 [facility] Comment on above: Performed By: #### L [id number] ####[facility] ([facility] [place] [address] Immature granulocytes/100 WBC (Bld) 0.5 % Normal 0.0-1.0 [facility] Comment on above: Performed By: #### L [id number] ####[facility] [place] [address] Lymphocytes (Bld) [#/Vol] 0.52 10*3/uL Low 1.20-4.0 0 [facility] Comment on above: Performed By: #### L [id number] ####[facility] ([facility] [place] [address] Lymphocytes/100 WBC (Bld) 8.4 % Low 20.0-45.0 [facility] Comment on above: Performed By: #### L [id number] ####[facility] ([facility])[address] [place] [address] MCH (RBC) [Entitic mass] 32.3 pg Normal 27.0-33.0 [facility] Comment on above: Performed By: #### L [id number] ####[facility] [place] [address] MCV (RBC) [Entitic vol] 103.6 fL High 82.0-98.0 [facility] Comment on above: Performed By: #### L [id number] ####[facility] [place] [address] Monocytes (Bld) [#/Vol] 0.71 10*3/uL Normal 0.10-1.00 [facility] Comment on above: Performed By: #### L [id number] ####[facility] ([facility])[address] [place] [address] Monocytes/100 WBC (Bld) 11.5 % Normal 5.0-12.0 [facility] Comment on above: Performed By: #### L [id number] ####[facility] ([facility])[address] [place] [address] Neutrophils (Bld) [#/Vol] 4.86 10*3/uL Normal 1.60-7.6 0 [facility] Comment on above: Performed By: #### L [id number] ####[facility] ([facility])[address] [place] [address] Neutrophils/100 WBC (Bld) 78.5 % High 40.0-72.0 [facility] Comment on above: Performed By: #### L [id number] ####[facility] ([facility])[address] [place] [address] NRBC (PER 100 WBCS) BY AUTOMATED COUNT 0.0 % Normal 0 [facility] Comment on above: Performed By: #### L [id number] ####[facility] ([facility]AKER)[address] [place] [address] PLATELETS (10*3/UL) IN BLOOD AUTOMATED COUNT 153 10*3/uL Normal 150-400 [facility] Comment on above: Performed By: #### L [id number] ####[facility] ([facility]AKER)[address] [place] [address] RBC (Bld) [#/Vol] 4.21 10*6/uL Normal 4.20-5.70 [facility] Comment on above: Performed By: #### L [id number] ####[facility] ([facility])[address] [place] [address] WBC (Bld) [#/Vol] 6.19 10*3/uL Normal 4.00-10.60 [facility] Comment on above: Performed By: #### L [id number] ####[facility] [place] [address] CKon 02-26-2024 CREATINE KINASE (U/L) IN SER/PLAS 94.0 U/L Normal 30.0-223.0 [facility] Comment on above: Performed By: #### L [id number] ####[facility] [place] [address] COMPREHENSIVE METABOLIC PANE Larry 02-26-2024 Albumin [Mass/Vol] 3.4 g/dL Low 3.5-5.7 [facility] Comment on above: Performed By: #### L [id number] ####[facility] [place] [address] ALP [Catalytic activity/Vol] 89 U/L Normal 34-104 [facility] Comment on above: Performed By: #### L [id number] ####[facility] [place] [address] ALT [Catalytic activity/Vol] 16 U/L Normal 7-52 [facility] Comment on above: Performed By: #### L [id number] ####[facility] [place] [address] Anion gap [Moles/Vol] 9 mmol/L Normal 7-20 [facility] Comment on above: Performed By: #### L [id number] ####[facility] ([facility] [place] [address] AST [Catalytic activity/Vol] 20 U/L Normal 13-39 [facility] Comment on above: Performed By: #### L [id number] ####[facility] [place] [address] Bilirubin [Mass/Vol] 1.0 mg/dL Normal 0.3-1.0 [facility] Comment on above: Performed By: #### L [id number] ####[facility] ([facility])[address] [place] [address] Calcium [Mass/Vol] 8.6 mg/dL Normal 8.6-10.3 [facility] Comment on above: Performed By: #### L [id number] ####[facility] ([facility]ER)[address] [place] [address] Chloride [Moles/Vol] 105 mmol/L Normal 98-107 [facility] Comment on above: Performed By: #### L [id number] ####[facility] ([facility]AKER)[address] [place] [address] CO2 [Moles/Vol] 30 mmol/L Normal 21-31 [facility] Comment on above: Performed By: #### L [id number] ####[facility] ([facility]AKER)[address] [place] [address] Creatinine [Mass/Vol] 0.90 mg/dL Normal 0.70-1.30 [facility] Comment on above: Performed By: #### L [id number] ####[facility] ([facility])[address] [place] [address] GLOMERULAR FILTRATION RATE ML/MIN/1.73 SQ M.PREDICTED 87.4 mL/min/1.73m*2 Normal >60.0 [facility] Comment on above: Result Comment: [facility]???s estimated glomerular filtration rate (eGFR) [...] of individuals. Performed By: #### L [id number] ####[facility] ([facility]ER)[address] [place] [address] Glucose [Mass/Vol] 127 mg/dL High 70-100 [facility] Comment on above: Performed By: #### L [id number] ####[facility] ([facility])[address] [place] [address] Potassium [Moles/Vol] 3.4 mmol/L Low 3.5-5.1 [facility] Comment on above: Performed By: #### L [id number] ####[facility] ([facility])[address] [place] [address] Protein [Mass/Vol] 6.9 g/dL Normal 6.0-8.3 [facility] Comment on above: Performed By: #### L [id number] ####[facility] ([facility])[address] [place] [address] Sodium [Moles/Vol] 141 mmol/L Normal 136-145 [facility] Comment on above: Performed By: #### L [id number] ####[facility] ([facility])[address] [place] [address] Urea nitrogen [Mass/Vol] 14 mg/dL Normal 7-25 [facility] Comment on above: Performed By: #### L [id number] ####[facility] ([facility])[address] [place] [address] UREA NITROGEN/CREATININE (MASS RATIO) IN SER/PLAS 15.6 Normal [facility] Comment on above: Performed By: #### L [id number] ####[facility] ([facility])[address] [place] [address] CONSULTon 02-26-2024 CONSULT Normal [facility] CTA CHEST W IV CONTRASTon CTA CHEST W IV CONTRAST [facility] 02-26-2024 ETHANOL (MG/DL) IN SER/PLAS <10 Normal [facility] Comment on above: Performed By: #### L [id number] ####[facility] ([facility])[address] [place] [address] ETHANOL CALCULATED (%) Normal Un [facility] Comment on above: Performed By: #### L [id number] ####[facility] ([facility]ER)[address] [place] [address] HEMOGLOBIN A1Con 02-26-2024 Glucose [Mass/Vol] 88 mg/dL Normal [facility] Comment on above: Performed By: #### L [id number] ####[facility] [place] [address] HbA1c (Bld) [Mass fraction] 4.7 % Normal 4.0-6.0 [facility] Comment on above: Performed By: #### L [id number] ####[facility] ([facility])[address] [place] [address] HPon 02-26-2024 HP Normal [facility] LIPID PANELon 02-26-2024 CHOL/HDL 2.5 mg/dL Normal [facility] Comment on above: Performed By: #### L [id number] ####[facility] ([facility])[address] [place] [address] Cholesterol [Mass/Vol] 93 mg/dL Low 120-200 [facility] Comment on above: Performed By: #### L [id number] ####[facility] ([facility])[address] [place] [address] Magnesium [Mass/Vol] 59 mg/dL Normal 40-149 [facility] Comment on above: Result Comment: TRIG LYCERIDE REFERENCE RANGE:20 YEARS AND OLDER CARDIOVASCULAR RISKLESS THAN 150 mg/dL LOW [id number] TO 199 mg/dL BORDERLINE [id number] mg/dL AND GREATER HIGH RISK Performed By: #### L [id number] ####[facility] ([facility]AKER)[address] [place] [address] Magnesium [Mass/Vol] 44 mg/dL Normal 0-160 [facility] Comment on above: Performed By: #### L [id number] ####[facility] ([facility]ER)[address] [place] [address] Magnesium [Mass/Vol] 37 mg/dL Normal 23-92 [facility] Comment on above: Performed By: #### L [id number] ####[facility] ([facility]AKER)[address] [place] [address] NON HDL CHOL. (LDL+VLDL) 56 Normal [facility] Comment on above: Performed By: #### L [id number] ####[facility] (BEAKER)[address] [place] [address] TOTAL VLDL-C 12 mg/dL Normal 0-[address] [facility] Comment on above: Performed By: #### L [id number] ####[facility] [place] [address] LIPOPROTEIN A (LPA)on 2023 Magnesium [Mass/Vol] 10 mg/dL Normal <=29 [facility] Comment on above: Result Comment: Perf ormed By: [employer] [place], [place] [id number] Director: Josh Olvera MD, PhDCLIA Number: [id number] Performed By: #### L [id number] ####[facility] ([facility])[address] [place] [address] MAGNESIUMon 02-26-2024 Magnesium [Mass/Vol] 1.7 mg/dL Low 1.9-2.7 [facility] Comment on above: Performed By: #### L [id number] ####[facility] ([facility] [place] [address] PHOSPHORUSon 02-26-2024 Magnesium [Mass/Vol] 3.7 mg/dL Normal 2.5-5.0 [facility] Comment on above: Performed By: #### L [id number] ####[facility] (BEAKER)[address] [place] [address] TOXICOLOGY PANEL URINEon AMPHETAMINE+METHAMPHETAMIN E SCREEN (PRESENCE) IN URINE Negative Normal Negative [facility] Comment on above: Performed By: #### L [id number] ####[facility] (BEAKER)[address] [place] [address] BARBITURATES PRESENCE IN URINE BY SCREEN METHOD Negative Normal Negative [facility] Comment on above: Performed By: #### L [id number] ####[facility] (BEAKER)[address] [place] [address] Benzodiazepines Ql (U) Negative Normal Negative Un [facility] Comment on above: Performed By: #### L [id number] ####[facility] (BEAKER)[address] [place] [address] CANNABINOID (PRESENCE) IN URINE BY SCREEN METHOD Negative Normal Negative [facility] Comment on above: Performed By: #### L [id number] ####[facility] ([facility]AKER)[address] [place] [address] Cocaine Ql (U) Negative Normal Negative [facility] Comment on above: Performed By: #### L [id number] ####[facility] (BEAKER)[address] [place] [address] METHADONE (PRESENCE) IN URINE BY SCREEN METHOD Negative Normal Negative [facility] Comment on above: Performed By: #### L [id number] ####[facility] (BEAKER)[address] [place] [address] OPIATES (PRESENCE) IN URINE BY SCREEN METHOD Negative Normal Negative [facility] Comment on above: Performed By: #### L [id number] ####[facility] (BEAKER)[address] [place] [address] PHENCYCLIDINE PRESENCE IN URINE BY SCREEN METHOD Negative Normal Negative [facility] Comment on above: Performed By: #### L [id number] ####[facility] ([facility]ER)[address] [place] [address] Propoxyphene Screen Ql (U) Negative Normal Negative [facility] Comment on above: Performed By: #### L [id number] ####[facility] (BEAKER)[address] [place] [address] TRICYCLIC ANTIDEPRESSANTS (PRESENCE) IN URINE Negative Normal Negative [facility] Comment on above: Performed By: #### L [id number] ####[facility] ([facility])[address] [place] [address] TROPONIN Ion 02-26-2024 Troponin I.cardiac [Mass/Vol] 0.02 ng/mL Normal 0.00-0.04 [facility] Comment on above: Performed By: #### L [id number] ####[facility] ([facility])[address] [place] [address] Troponin I.cardiac [Mass/Vol] 0.02 ng/mL Normal 0.00-0.04 [facility] Comment on above: Performed By: #### L [id number] ####[facility] ([facility])[address] [place] [address] Troponin I.cardiac [Mass/Vol] 0.01 ng/mL Normal 0.00-0.04 [facility] Comment on above: Performed By: #### L [id number] ####[facility] ([facility])[address] [place] [address] TSHon 02-26-2024 THYROTROPIN (MIU/L) IN SER/PLAS BY DETECTION LIMIT <= 0.05 MIU/L 1.59 mIU/L Normal 0.34-5.[address] [facility] Comment on above: Performed By: #### L [id number] ####[facility] ([facility])[address] [place] [address] CBC AND AUTO DIFFon 02-22-20 24 ABSOLUTE BASOPHIL 0.0 X10E9/L Normal 0.0-0.2 [facility] Comment on above: Performed By: #### P INR, 99897-3 #### [facility] ([id number]) [address] [place] [address], [place] [address] #### CBCA, CMP #### [facility] ([id number]) [address], [address] [place] [address] ABSOLUTE NEUTROPHIL 2.3 X10E9/L Normal 1.5-6.6 [facility] Comment on above: Performed By: #### P INR, 04814-8 #### [facility] ([id number]) [address] [place] [address] #### CBCA, CMP #### [facility] ([id number]) [address], [address] [place] [address] Basophils/100 WBC (Bld) 0.7 % Normal P [facility] Comment on above: Performed By: #### P INR, 49415-2 #### [facility] ([id number]) [address] [place] [address] #### CBCA, CMP #### [facility] ([id number]) [address] [place] [address] Eosinophils (Bld) [#/Vol] 0.2 10*3/uL Normal 0.0-0.4 [facility] Comment on above: Performed By: #### P INR, 48916-5 #### [facility] ([id number]) [address] [place] [address] #### CBCA, CMP #### [facility] ([id number]) [address] [place] [address] Eosinophils/100 WBC (Bld) 3.8 % Normal [facility] Comment on above: Performed By: #### P INR, 01128-2 #### [facility] ([id number]) [address] [place] [address] #### CBCA, CMP #### [facility] ([id number]) [address], [address] [place] [address] Erythrocyte distribution width (RBC) [Ratio] 14.3 % Normal 11.5-15.0 [facility] Comment on above: Performed By: #### P INR, 73271-5 #### [facility] ([id number]) [address] [place] [address] #### CBCA, CMP #### [facility] ([id number]) [address] [place] [address], [address] [place] [address] Hematocrit (Bld) [Volume fraction] 42.1 % Normal 39-49 [facility] Comment on above: Performed By: #### P INR, 01539-9 #### [facility] ([id number]) [address] [place] [address] #### CBCA, CMP #### [facility] ([id number]) [address] [place] [address], [address] [place] [address] Hemoglobin (Bld) [Mass/Vol] 13.9 g/dL Normal 13.0-17.0 [facility] Comment on above: Performed By: #### P INR, 28193-2 #### [facility] ([id number]) [address] [place] [address] #### CBCA, CMP #### [facility] ([id number]) [address] [place] [address], [address] [address] Lymphocytes (Bld) [#/Vol] 1.4 10*3/uL Normal 1.0-3.5 [facility] Comment on above: Performed By: #### P INR, 02105-8 #### [facility] ([id number]) [address] [place] [address] #### CBCA, CMP #### [facility] ([id number]) [address] [place] [address], [address] [place] [address] Lymphocytes/100 WBC (Bld) 31.5 % Normal [facility] Comment on above: Performed By: #### P INR, 91997-3 #### [facility] ([id number]) [address] [place] [address] #### CBCA, CMP #### [facility] ([id number]) [address], [address] [place] [address] MCH (RBC) [Entitic mass] 32.8 pg Normal 27-34 [facility] Comment on above: Performed By: #### P INR, 10231-4 #### [facility] ([id number]) [address] [place] [address] #### CBCA, CMP #### [facility] ([id number]) [address] [place] [address] MCHC (RBC) [Mass/Vol] 32.9 g/dL Normal 32-36 [facility] Comment on above: Performed By: #### P INR, 34202-0 #### [facility] ([id number]) [address] [place] [address] #### CBCA, CMP #### [facility] ([id number]) [address] [place] [address] MCV (RBC) [Entitic vol] 100 fL Normal 80-100 P [facility] Comment on above: Performed By: #### P INR, 51247-6 #### [facility] ([id number]) [address] [place] [address] #### CBCA, CMP #### [facility] ([id number]) [address], [address] [place] [address] Monocytes (Bld) [#/Vol] 0.5 10*3/uL Normal 0-0.9 [facility] Comment on above: Performed By: #### P INR, 47705-7 #### [facility] ([id number]) [address] [place] [address] #### CBCA, CMP #### [facility] ([id number]) [address], [address] [place] [address] Monocytes/100 WBC (Bld) 10.8 % Normal P [facility] Comment on above: Performed By: #### P INR, 29885-7 #### [facility] ([id number]) [address] [place] [address] #### CBCA, CMP #### [facility] ([id number]) [address], [address] [place] [address] Neutrophils/100 WBC (Bld) 53.2 % Normal [facility] Comment on above: Performed By: #### P INR, 17837-6 #### [facility] ([id number]) [address] [place] [address] #### CBCA, CMP #### [facility] ([id number]) [address], [address] [place] [address] Platelet mean volume (Bld) [Entitic vol] 9.8 fL Normal 7-12 [facility] Comment on above: Performed By: #### P INR, 66473-7 #### [facility] ([id number]) [address] [place] [address] #### CBCA, CMP #### [facility] ([id number]) [address], [address] [place] [address] Platelets (Bld) [#/Vol] 164 10*3/uL Normal 150-450 [facility] Comment on above: Performed By: #### P INR, 17554-4 #### [facility] ([id number]) [address] [place] [address] #### CBCA, CMP #### [facility] ([id number]) [address], [address] [place] [address] RBC COUNT 4.22 X10E12/L Normal 4.10-5.70 [facility] Comment on above: Performed By: #### P INR, 20351-7 #### [facility] ([id number]) [address] [place] [address] #### CBCA, CMP #### [facility] ([id number]) [address], [address] [place] [address] WBC (Bld) [#/Vol] 4.3 10*3/uL Normal 4.0-11.0 [facility] Comment on above: Performed By: #### P INR, 91600-8 #### [facility] ([id number]) [address] [place] [address] #### CBCA, CMP #### [facility] ([id number]) [address], [address] [place] [address] COMPREHENSIVE METABOLIC [facility] 02-22-2024 Albumin [Mass/Vol] 3.4 g/dL Normal 3.2-5.3 [facility] Comment on above: Performed By: #### P INR, 42092-8 #### [facility] ([id number]) [address] [place] [address] #### CBCA, CMP #### [facility] ([id number]) [address], [address] [place] [address] ALP [Catalytic activity/Vol] 88 U/L Normal 39-130 [facility] Comment on above: Performed By: #### P INR, 70200-5 #### [facility] ([id number]) [address] [place] [address]68 #### CBCA, CMP #### [facility] ([id number]) [address], [address] [place] [address] ALT [Catalytic activity/Vol] 15 U/L Normal 0-40 [facility] Comment on above: Performed By: #### P INR, 12294-7 #### [facility] ([id number]) [address] [place] [address] #### CBCA, CMP #### [facility] ([id number]) [address] [place] [address] Anion gap [Moles/Vol] 8 mmol/L Normal 5-15 [facility] Comment on above: Performed By: #### P INR, 44697-7 #### [facility] ([id number]) [address] [place] [address] #### CBCA, CMP #### [facility] ([id number]) [address], [address] [place] [address] AST [Catalytic activity/Vol] 21 U/L Normal 0-41 [facility] Comment on above: Performed By: #### P INR, 70302-2 #### [facility] ([id number]) [address] [place] [address] #### CBCA, CMP #### [facility] ([id number]) [address] [place] [address] Bilirubin [Mass/Vol] 0.5 mg/dL Normal 0.3-1.2 [facility] Comment on above: Performed By: #### P INR, 25223-7 #### [facility] ([id number]) [address] [place] [address] #### CBCA, CMP #### [facility] ([id number]) [address] [place] [address] Calcium [Mass/Vol] 8.9 mg/dL Normal 8.5-10.5 [facility] Comment on above: Performed By: #### P INR, 79857-8 #### [facility] ([id number]) [address] [place] [address] #### CBCA, CMP #### [facility] ([id number]) [address] [place] [address] Chloride [Moles/Vol] 109 mmol/L Normal 98-109 [facility] Comment on above: Performed By: #### P INR, 91670-0 #### [facility] ([id number]) [address] [place] [address] #### CBCA, CMP #### [facility] ([id number]) [address] [place] [address] CO2 [Moles/Vol] 26 mmol/L Normal 22-32 [facility] Comment on above: Performed By: #### P INR, 52226-6 #### [facility] ([id number]) [address] [place] [address] #### CBCA, CMP #### [facility] ([id number]) [address] [place] [address] Creatinine [Mass/Vol] 0.80 mg/dL Normal 0.60-1.30 [facility] Comment on above: Result Comment: METH OD TRACEABLE TO IDMS STANDARD Performed By: #### P INR, 31179-4 #### [facility] ([id number]) [address] [place] [id number] #### CBCA, CMP #### [facility] ([id number]) [address], [address] [place] [address] eGFR (CKD-EPI) NON-RACE DEPENDENT >90 Normal >59 [facility] Comment on above: Result Comment: Reported eGFR is based on the CKD-EPI 1 equation that does not use a race coefficient. Performed By: #### P INR, 70109-4 #### [facility] ([id number]) [address] [place] [id number] #### CBCA, CMP #### [facility] ([id number]) [address], [address] [place] [address] Glucose [Mass/Vol] 106 mg/dL High 65-99 [facility] Comment on above: Performed By: #### P INR, 83974-1 #### [facility] ([id number]) [address] [place] [id number] #### CBCA, CMP #### [facility] ([id number]) [address] [place] [address] Potassium [Moles/Vol] 3.4 mmol/L Low 3.5-5.0 [facility] Comment on above: Performed By: #### P INR, 13549-0 #### [facility] ([id number]) [address] [place] [address] #### CBCA, CMP #### [facility] ([id number]) [address] [place] [address] Protein [Mass/Vol] 6.8 g/dL Normal 6.0-8.0 [facility] Comment on above: Performed By: #### P INR, 74098-1 #### [facility] ([id number]) [address] [place] [address] 18450 #### CBCA, CMP #### [facility] ([id number]) [address], [address] [place] [address] Sodium [Moles/Vol] 143 mmol/L Normal 134-146 [facility] Comment on above: Performed By: #### P INR, 79672-1 #### [facility] ([id number]) [address] [place] [address] 89884 #### CBCA, CMP #### [facility] ([id number]) [address] [place] [address] Urea nitrogen [Mass/Vol] 15 mg/dL Normal 5-27 [facility] Comment on above: Performed By: #### P INR, 74195-4 #### [facility] ([id number]) [address] [place] [address] #### CBCA, CMP #### [facility] ([id number]) [address], [address] [place] [id number] PROTIME AND INRon 02-22-2024 INR Coag (PPP) [Relative time] 1.2 {INR} High 0.8-1.1 [facility] Comment on above: Performed By: #### P INR, 57985-9 #### [facility] ([id number]) [address] [place] [id number] #### CBCA, CMP #### [facility] ([id number]) [address], [address] [place] [address] PT Coag (PPP) [Time] 14.1 s High 9.8-13.2 [facility] Comment on above: Result Comment: NEW REFERENCE RANGE Performed By: #### P INR, 94030-8 #### [facility] ([id number]) [address] [place] [id number] #### CBCA, CMP #### [facility] ([id number]) [address] [place] [address] aPTT Coag (PPP) [Time]on aPTT Coag (Bld) [Time] 39 s High 26-37 [facility] Comment on above: Result Comment: NEW REFERENCE RANGE Performed By: #### P INR, 86662-7 #### [facility] ([id number]) [address] [place] [id number] #### CBCA, CMP #### [facility] ([id number]) [address], [address] [place] [address] NURSNOTEon 02-19-2024 NURSNOTE Normal [facility] HPon 02-09-2024 HP Normal [facility] 36on 02-08-2024 36 Normal [facility] Vital Signs Date Time Vital Sign Value Performing Clinician Facility 07-04-2024 15:51-0500 Body temperature 97.81 [degF] Ru Schwarz MD Work Phone: [facility] 07-04-2024 15:51-0500 Diastolic blood pressure 59 mm[Hg] Ru Schwarz MD Work Phone: [facility] 07-04-2024 15:51-0500 Heart rate 62 /min Ru Schwarz MD Work Phone: [facility] 07-04-2024 15:51-0500 Respiratory rate 19 /min Ru Schwarz MD Work Phone: [facility] 07-04-2024 15:51-0500 SaO2% (BldA) [Mass fraction] 94 % Ru Schwarz MD Work Phone: [facility] 07-04-2024 15:51-0500 Systolic blood pressure 122 mm[Hg] Ru Schwarz MD Work Phone: [facility] 07-04-2024 04:36-0500 Body mass index (BMI) [Ratio] 30.08 kg/m2 Ru Schwarz MD Work Phone: [facility] 07-04-2024 04:36-0500 Body weight 100.6 kg Ru Schwarz MD Work Phone: [facility] 06-29-2024 12:17-0500 Body height 182.9 cm Ru Schwarz MD Work Phone: [facility] Encounters Encounter Date Encounter Type Care Provider Facility Start: 01-06-2025 End: 01-06-2025 ambulatory [facility] Start: 01-01-2025 ambulatory FRANCISCO RUBIN [facility] Start: 12-19-2024 End: 12-19-2024 ambulatory [facility] Start: 12-09-2024 End: 12-09-2024 [facility] Start: 11-29-2024 End: 11-29-2024 ambulatory [facility] Start: 11-25-2024 ambulatory [facility] Start: 11-25-2024 Encounter for preprocedural cardiovascular examination [facility] Start: 11-18-2024 End: 11-18-2024 ambulatory [facility] Start: 11-12-2024 End: 11-13-2024 ambulatory [facility] Start: 10-30-2024 End: 11-01-2024 ambulatory [facility] Start: 10-17-2024 ambulatory [facility] Start: 10-08-2024 ambulatory [facility] Start: 09-04-2024 End: 09-04-2024 ambulatory [facility] Start: 08-30-2024 End: 08-30-2024 ambulatory ABE FERNÁNDEZ [facility] Start: 08-29-2024 End: 08-29-2024 ambulatory Kelvin Langston Facility:[facility] Start: 08-29-2024 End: 08-29-2024 Departed Referred Kelvin Langston MD Work Phone: [facility] Start: 08-28-2024 ambulatory [facility] Start: 08-27-2024 ambulatory [facility] Start: 08-09-2024 End: 08-09-2024 [facility] Start: 08-01-2024 ambulatory [facility] Start: 08-01-2024 ambulatory [facility] Start: 07-19-2024 End: 07-19-2024 ambulatory [facility] Start: 07-16-2024 End: 07-16-2024 ambulatory [facility] Start: 07-09-2024 End: 07-10-2024 Emergency department patient visit [facility] Start: 07-08-2024 End: 07-08-2024 ambulatory [facility] Start: 07-05-2024 End: 07-06-2024 Emergency department patient visit [facility] Start: 07-05-2024 End: 07-05-2024 Telephone encounter Angela Owusu [facility] Amparo silva Comment on above: Blood in Urine Start: 07-02-2024 End: 07-02-2024 ambulatory [facility] Start: 06-29-2024 End: 07-04-2024 Evaluation and management of inpatient Antoine Burleson Do, MD Work Phone: [facility] 2 Acute Comment on above: Fall in home, initia l encounter (Primary Dx); Acute blood loss anemia Start: 06-28-2024 End: 06-29-2024 Emergency department patient visit [facility] Start: 06-26-2024 Emergency department patient visit [facility] Start: 06-26-2024 End: 06-26-2024 Emergency department patient visit [facility] Start: 06-19-2024 End: 06-19-2024 ambulatory [facility] Start: 05-30-2024 ambulatory [facility] Start: 05-21-2024 End: 05-21-2024 ambulatory [facility] Start: 05-21-2024 End: 05-21-2024 ambulatory [facility] Start: 05-15-2024 End: 05-15-2024 ambulatory Kelvin Langston [facility] Work Phone: Start: 05-15-2024 End: 05-15-2024 Departed Referred Kelvin Langston MD Work Phone: [facility] Start: 05-06-2024 ambulatory [facility] Start: 05-06-2024 ambulatory [facility] Start: 04-30-2024 End: 04-30-2024 ambulatory [facility] Start: 04-24-2024 End: 04-24-2024 ambulatory [facility] Start: 04-19-2024 End: 04-19-2024 ambulatory [facility] Start: 04-02-2024 End: 04-03-2024 ambulatory [facility] Start: 03-13-2024 End: 03-14-[address] [facility] Start: 03-05-2024 Evaluation and manag ement of inpatient [facility] Start: 03-01-2024 Evaluation and manag ement of inpatient [facility] Start: 02-28-2024 Evaluation and manag ement of inpatient [facility] Start: 02-28-2024 Evaluation and manag ement of inpatient [facility] Start: 02-27-2024 Evaluation and manag ement of inpatient [facility] Start: 02-27-2024 Evaluation and manag ement of inpatient [facility] Start: 02-26-2024 Evaluation and manag ement of inpatient [facility] Start: 02-26-2024 Evaluation and manag ement of inpatient [facility] Start: 02-26-2024 Evaluation and manag ement of inpatient [facility] Start: 02-26-2024 End: 02-26-2024 ambulatory [facility] Start: 02-26-2024 End: 03-06-2024 Evaluation and management of inpatient SAILAJA YOUNGBLOOD [facility] Start: 02-22-2024 End: 02-22-2024 ambulatory [facility] Start: 02-09-2024 End: 02-09-2024 ambulatory [facility] Start: 02-09-2024 End: 02-09-2024 ambulatory [facility] Start: 02-09-2024 End: 02-09-2024 ambulatory [facility] Start: 01-10-2024 End: 01-10-2024 ambulatory RANDOLPH [facility] Start: 12-29-2023 ambulatory [facility] Lue Facility:[facility] Start: 12-26-2023 End: 12-26-2023 ambulatory TABITHA LEUNG Facility:[facility] Start: 12-26-2023 End: 12-26-2023 Patient encounter procedure TABITHA LEUNG [facility] Start: 12-19-2023 ambulatory Nova M[facility] Lue Facility:[facility] Start: 12-12-2023 End: 12-13-2023 ambulatory Nova M[facility] Lue Facility:[id number] Start: 12-12-2023 End: 12-12-2023 ambulatory [facility] L[facility] Facility:CD:[id number] Procedures Date Procedure Procedure Detail [...] MD Work Phone: Start: 06-29-2024 REPEATED ABORH Ignrid Orlando Ticchi-Junkins PA Work Phone: Start: 06-29-2024 [...] Author Start: 06-29-2025 Depression Screening Depression Screening [facility] Start: 06-29-2025 Tobacco Screening Tobacco Screening [facility] Start: 08-29-2024 Bacteria identified in Urine by Culture Urine Culture [facility] Start: 08-29-2024 Urine culture [facility] Start: 05-15-2024 Bacteria identified in Urine by Culture Urine Culture [facility] Start: 05-15-2024 Urine culture [facility] Start: 01-14-2024 Influenza vaccination Influenza Vaccine [facility] Start: 2010 Fall Risk Screening Fall Risk Screening [facility] Start: 08-19-1995 Administration of varicella zoster vaccine Zoster (Shingles) Vaccine (1 of 2) [facility] Start: 1964 DTaP,Tdap and Td Vaccines (1 - Tdap) DTaP,Tdap and Td Vaccines (1 - Tdap) [facility] Immunizations Immunization Date Immunization Notes Care Provider Landon kirkpatrick 06-29-2024 pneumococcal conj. 20-valent (PREVNAR-20) vaccine 0.5 mL Ru Schwarz MD Work Phone: [facility] 06-29-2024 flu vacc [id number] 6 mos up(PF) (FLULAVAL/FLUZONE/FLUAR IX TRIV) injection syringe 0.5 mL Ru Schwarz MD Work Phone: [facility] Payers Date Payer Category Payer Self-pay 2023 Medicare HMO [employer] [id number] 2021 Unknown [id number] 1945 Unknown [id number] 1945 Unknown [id number] [id number] 1945 Unknown [id number] [id number] 1945 Unknown [id number] 1945 Unknown [id number] [id number] 1945 Unknown [id number] 2.16.840.1.500246.3.579.2.128 6 1945 Unknown [id number] 2.16.840.1.780920.3.579.2.128 6 1945 Unknown [id number] [id number] 6 1945 Unknown [id number] [id number] 6 1945 Unknown [id number] [id number] 6 1945 Unknown [id number] 2.16.840.1.825621.3.579.2.128 6 1945 Unknown [id number] 2.16.840.1.862516.3.579.2.128 6 1945 Unknown [id number] 2.16.840.1.082847.3.579.2.128 6 1945 Unknown [id number] [id number]8 6 Unknown [id number] [id number] Unknown [id number] [id number] Social History Date Type Detail Facility Tobacco smoking status [facility] Start: 06-29-2024 End: 07-05-2024 Sex Assigned At Male [facility] Tobacco smoking stat [facility] Unknown if ever smoked [facility] Work Phone: Start: 05-16-2024 End: 08-31-2024 Sex Male (finding) [facility] Start: 1945 Sex Assigned At Male [facility] Start: 06-28-2024 [facility] End: 05-15-2008 History of tobacco use Current smoker [facility] End: 05-15-2008 History of tobacco use Cigarette Smoker [facility] Start: 06-28-2024 Tobacco use and exposure Smokeless tobacco non-user [facility] Start: 06-29-2024 Alcoholic beverage intake Ex-drinker (finding) [facility] Start: 06-29-2024 End: 07-05-2024 History of Social function [facility] Has the [employer], or [employer] threatened to shut off services in your home in past 12Mo No [facility] Adolescent depressio n screening assessment 2 [facility] Start: 1945 Sex assigned at Not on file P [facility] Goals Date Patient Goal Desired Activity /State Personal health goal Comment on above: Formatting of this n ote might be different from the original. Evaluation of progress towards goal: home with son and daughter in law Functional Status Date Assessment Result Facility [facility] Mental Status Date Assessment [facility] Clinical Notes 01-10-2024 to 01-06-2025 Telephone Encounter - Angela Owusu - 07/05/2024 7:30 PM ESTTelephone Encounter - Angela Owusu - 07/05/2024 7:30 PM ESTTelephone Encounter - Angela Owusu - 07/05/2024 7:30 PM ESTAppointments Note Date & Type Note Facility 01-06-2025 Note [facility] 12-09-2024 Note [facility] 11-29-2024 Note [facility] 11-18-2024 Note [facility] 11-12-2024 Note [facility] 11-12-2024 Note [facility] 10-30-2024 Note [facility] 10-30-2024 Note [facility] 10-17-2024 Note [facility] 10-17-2024 Note Renal us [facility] 09-04-2024 Note Renal condition is i mproving with treatment. Regular aerobic exercise. Renal condition will be reassessed in 1 month. No associated orders from this encounter found during lookback period of 72 hours. [facility] 09-04-2024 Note [facility] 09-04-2024 Note H&P reviewed. The maria a garcia was examined and there are no changes to the H&P. [facility] 08-29-2024 Note [facility] asking for revised order as diagnosis code did not pass medical necessity. [facility] 08-28-2024 Note [facility] 07-19-2024 Note [facility] 07-05-2024 Miscellaneous Notes Contract: 195 re [employer] for Patient Call was connected to Dr Santa griffin documented in this encounter [facility] 07-05-2024 Telephone encounter Note Contract: 195 re [employer]atur[employer] for Patient [facility] 07-05-2024 Telephone encounter Note Call was connected to Dr Santa griffin [facility] 07-04-2024 Nurse Note 1545 Report [facility] to [facility] at [facility] Confirmed pickle pumper time from PTN, ontime. Pt updated. IV removed. 1715: Report given to transport team. Pt discharged in stable condition. [facility] 07-04-2024 Nurse Note 1545 Report called to RAS Martinez at [facility]. Confirmed pickle pumper time from PTN, ontime. Pt updated. IV removed. 1715: Report given to transport team. Pt discharged in stable condition. Pt pulse ox at 84%, pt placed on 2 liters of oxygen, notified patients nurse Ligia Soliz Rn of 02 placement. Pt resting quietly. documented in this encounter [facility] 07-04-2024 Plan of care note Problem: Pain Goal: Patient goal is pain score less than 4, able to rest, and participant in treatment plan as appropriate Description: INTERVENTIONS: 1. Encourage patient or legal medical representative to report early pain and ask [...] per policy 9. Teach patient or legal medical representative interventions for comforting Outcome: Adequate for [...] at the bedside 7. Instruct patient/ patient medical representative about use of safety devices 8. Include patient/ patient medical representative in decisions related to safety Outcome: Adequate for Discharge Note: Evaluation of progress towards goal: Pt will remain free from injury Problem: Moderate - High Risk Fall Score Description: [place] Fall Score of =/> 25 or indicated by [facility] Assessment Goal: Patient should be free from fall Description: Interventions: 1. [place] to environment 2. Hourly rounds addressing the [...] non-skid footwear 11. Teach patient and patient medical representative to maintain environment for safety and [...] (cane, walker) within reach 19. Request patient medical representative bring adaptive equipment/mobility aids from home or obtain and provide as needed 20. Consult pharmacy regarding effects of med's affecting mobility, cognition, and alternatives 21. Obtain physician order for PT if risk factors associated with mobility are present 22. Obtain physician order for OT as appropriate 23. Utilize diversional activities 24. Educate patient and patient medical representative how to maintain a safe environment during visitation times (notify nurse prior to leaving bedside) 25. Consider appropriateness of medical or non-general medical practitioner 26. Set up voiding schedule as appropriate (every 2 hours) Outcome: Adequate for Discharge Note: Evaluation of progress towards goal: Remain free from falls [facility] 07-04-2024 Miscellaneous Notes Problem: Pain Goal: Patient goal is pain score less than 4, able to rest, and participant in treatment plan as appropriate Description: INTERVENTIONS: 1. Encourage patient or legal medical representative to report early pain and ask [...] per policy 9. Teach patient or legal medical representative interventions for comforting Outcome: Adequate for [...] at the bedside 7. Instruct patient/ patient medical representative about use of safety devices 8. Include patient/ patient medical representative in decisions related to safety Outcome: Adequate for Discharge Note: Evaluation of progress towards goal: Pt will remain free from injury Problem: Moderate - High Risk Fall Score Description: [place] Fall Score of =/> 25 or indicated by [facility] Assessment Goal: Patient should be free from fall Description: Interventions: 1. [place] to environment 2. Hourly rounds addressing the [...] non-skid footwear 11. Teach patient and patient medical representative to maintain environment for safety and [...] (cane, walker) within reach 19. Request patient medical representative bring adaptive equipment/mobility aids from home or obtain and provide as needed 20. Consult pharmacy regarding effects of med's affecting mobility, cognition, and alternatives 21. Obtain physician order for PT if risk factors associated with mobility are present 22. Obtain physician order for OT as appropriate 23. Utilize diversional activities 24. Educate patient and patient medical representative how to maintain a safe environment during visitation times (notify nurse prior to leaving bedside) 25. Consider appropriateness of medical or non-general medical practitioner 26. Set up voiding schedule as appropriate (every 2 hours) Outcome: Adequate for Discharge Note: Evaluation of progress towards goal: Remain free from falls DISCHARGE PLANNING NOTE Case discussed in daily transition rounds and chart reviewed by CN. Barriers to discharge include no medical barriers Discharge Plan remains: [facility] aware of dc order today-transport ambulette pickle pumper time is 4pm. HENS complete. CRF in dc packet and sent to [facility]. Patient aware of dc at 4p as well. CN will continue to follow and is available should any further needs arise. - Julisa Del Toro RN 07/04/24 11:25 AM Problem: Pain Goal: Patient goal is pain score less than 4, able to rest, and participant in treatment plan as appropriate Description: INTERVENTIONS: 1. Encourage patient or legal medical representative to report early pain and ask [...] per policy 9. Teach patient or legal medical representative interventions for comforting Outcome: Progressing Note: [...] at the bedside 7. Instruct patient/ patient medical representative about use of safety devices 8. Include patient/ patient medical representative in decisions related to safety Outcome: [...] hygiene technique. 7. Identify and instruct patient/patient medical representative in use of appropriate isolation precautions for identified infection/symptoms. 8. Provide and discuss with patient/patient medical representative on educational MDRO sheet. 9. Encourage and monitor nutritional status daily and consult mold filler if indicated. 10. Implement neutropenic guidelines as needed. Outcome: Progressing Note: Evaluation of progress towards goal: Pt is afebrile and will remain free from signs of infection during shift. Labs and PIV insertion site being monitored Problem: Knowledge Deficit Goal: Patient/patient medical representative demonstrates understanding of disease process, treatment [...] goal: Discharge planning in process. Plan is [facility] Problem: Potential for Compromised Skin Integrity Goal: [...] supplement as ordered 13. Collaborate with clinical mold filler 14. Include patient/ patient's medical representative in decisions related to nutrition Outcome: Progressing Note: Evaluation of progress towards goal: pt is consuming an adequate amt of meals Problem: Moderate - High Risk Fall Score Description: Issa Fall Score of =/> 25 or indicated by [facility] Assessment Goal: Patient should be free from fall Description: Interventions: 1. [place] to environment 2. Hourly rounds addressing the [...] non-skid footwear 11. Teach patient and patient medical representative to maintain environment for safety and [...] (cane, walker) within reach 19. Request patient medical representative bring adaptive equipment/mobility aids from home or obtain and provide as needed 20. Consult pharmacy regarding effects of med's affecting mobility, cognition, and alternatives 21. Obtain physician order for PT if risk factors associated with mobility are present 22. Obtain physician order for OT as appropriate 23. Utilize diversional activities 24. Educate patient and patient medical representative how to maintain a safe environment during visitation times (notify nurse prior to leaving bedside) 25. Consider appropriateness of medical or non-general medical practitioner 26. Set up voiding schedule as appropriate [...] transport via PTN confirmed in [facility] to [facility] 07.04.24 at 12:00pm DISCHARGE PLANNING NOTE Prior Auth approved for admission to : [facility]/ [facility], [place], [place] (P# ; F# ) Approval # [id number] Valid for Dates: 07/03/2024-07/09/2024 Problem: Pain Goal: Patient goal is pain score less than 4, able to rest, and participant in treatment plan as appropriate Description: INTERVENTIONS: 1. Encourage patient or legal medical representative to report early pain and ask [...] per policy 9. Teach patient or legal medical representative interventions for comforting Outcome: Adequate for [...] at the bedside 7. Instruct patient/ patient medical representative about use of safety devices 8. Include patient/ patient medical representative in decisions related to safety Outcome: Adequate for Discharge Note: Evaluation of progress towards goal: Patient safety maintained during shift with use of 5 rights, patient and staff using hygiene, patient environment free of harm and debrie. Will continue to monitor during shift. Problem: Knowledge Deficit Goal: Patient/patient medical representative demonstrates understanding of disease process, treatment [...] Score of =/> 25 or indicated by [facility] Assessment Goal: Patient should be free from fall Description: Interventions: 1. [place] to environment 2. Hourly rounds addressing the [...] non-skid footwear 11. Teach patient and patient medical representative to maintain environment for safety and [...] (cane, walker) within reach 19. Request patient medical representative bring adaptive equipment/mobility aids from home or obtain and provide as needed 20. Consult pharmacy regarding effects of med's affecting mobility, cognition, and alternatives 21. Obtain physician order for PT if risk factors associated with mobility are present 22. Obtain physician order for OT as appropriate 23. Utilize diversional activities 24. Educate patient and patient medical representative how to maintain a safe environment during visitation times (notify nurse prior to leaving bedside) 25. Consider appropriateness of medical or non-general medical practitioner 26. Set up voiding schedule as appropriate [...] be started with [facility]. SW tasked [facility] to start auth. - FALLON ASHFORD 07/03/24 3:03 PM SW informed patient of DC tomorrow. SW also called patient son of discharge tomorrow at 4pm. SW tasked [facility] to set up transport. - FALLON ASHFORD 07/03/24 3:53 PM Problem: Pain Goal: Patient goal is pain score less than 4, able to rest, and participant in treatment plan as appropriate Description: INTERVENTIONS: 1. Encourage patient or legal medical representative to report early pain and ask [...] per policy 9. Teach patient or legal medical representative interventions for comforting Outcome: Progressing Note: [...] at the bedside 7. Instruct patient/ patient medical representative about use of safety devices 8. Include patient/ patient medical representative in decisions related to safety Outcome: [...] hygiene technique. 7. Identify and instruct patient/patient medical representative in use of appropriate isolation precautions for identified infection/symptoms. 8. Provide and discuss with patient/patient medical representative on educational MDRO sheet. 9. Encourage and monitor nutritional status daily and consult mold filler if indicated. 10. Implement neutropenic guidelines as needed. Outcome: Progressing Note: Evaluation of progress towards goal: patient remains afebrile, will continue to monitor labs Problem: Knowledge Deficit Goal: Patient/patient medical representative demonstrates understanding of disease process, treatment [...] supplement as ordered 13. Collaborate with clinical mold filler 14. Include patient/ patient's medical representative in decisions related to nutrition Outcome: [...] be free from fall Description: Interventions: 1. [place] to environment 2. Hourly rounds addressing the [...] non-skid footwear 11. Teach patient and patient medical representative to maintain environment for safety and [...] (cane, walker) within reach 19. Request patient medical representative bring adaptive equipment/mobility aids from home or obtain and provide as needed 20. Consult pharmacy regarding effects of med's affecting mobility, cognition, and alternatives 21. Obtain physician order for PT if risk factors associated with mobility are present 22. Obtain physician order for OT as appropriate 23. Utilize diversional activities 24. Educate patient and patient medical representative how to maintain a safe environment during visitation times (notify nurse prior to leaving bedside) 25. Consider appropriateness of medical or non-general medical practitioner 26. Set up voiding schedule as appropriate (every 2 hours) Outcome: Progressing Note: Evaluation of progress towards goal: patient remains free from falls Physical Therapy Evaluation Discharge Recommendations PT Recommendations: Alf Facility SNF/ECF Comments: Recommend SNF as pt [...] 6 Clicks: Basic Mobility Raw Score: 13 [facility] G Code Modifier: CK Therapy Plan [...] lithotripsy and stent placed on 06/19/24 at [facility]. Past Medical History: Diagnosis [place] [place] Coronary artery disease D[place] [place], initial encounter 06/29/2024 Hemorrhoids Hyperlipidemia Hypertension Kidney stone Memory loss Myocardial infarction [place] [place] Urinary tract infection History reviewed. No pertinent [...] ok for PT/OT--OOB. Equipment: gait belt, RW Telemetry/Neck Skewer: Yes Oxygen Order : SpO2 90% or [...] Goal: Patient will perform transfers with Modified Declo Dates: Start: 07/02/24 Expected End: 07/25/24 Description: Goal Description: Disciplines: PT Physical Therapy Care Plan (Resolved) There are no resolved problems. Principal Problem: Fall in home, initial encounter Occupational Therapy Evaluation Discharge Recommendations OT Recommendations : Alf Facility SNF/ECF Comments: recommend SNF at discharge [...] little Scoring Daily Activity Raw Score: 13 [facility] G Code Modifier: CL Pt admit 06/29/24 after fall from standing. Pt hypotensive on arrival s/p 3 units of PRBC. Dx: L renal hematoma, hypotension, acute blood loss anemia Urology consulted. Pt with hematuria, maintain jorgensen catheter. Pt with h/o lithotripsy with stent placement at [facility] on 06/19/24 Past Medical History: Diagnosis Date [place] [place]24 Coronary artery disease D[place] [place] home, initial encounter 06/29/2024 Hemorrhoids Hyperlipidemia Hypertension Kidney stone Memory loss Myocardial infarction [place] [place] Urinary tract infection History reviewed. No pertinent [...] mobility guideline:yes, pass Equipment: gait belt, RW Telemetry/Neck Skewer: Yes Oxygen Order : spo2 90% or [...] Description: INTERVENTIONS: 1. Encourage patient or legal medical representative to report early pain and ask [...] per policy 9. Teach patient or legal medical representative interventions for comforting Outcome: Progressing Note: [...] at the bedside 7. Instruct patient/ patient medical representative about use of safety devices 8. Include patient/ patient medical representative in decisions related to safety Outcome: [...] hygiene technique. 7. Identify and instruct patient/patient medical representative in use of appropriate isolation precautions for identified infection/symptoms. 8. Provide and discuss with patient/patient medical representative on educational MDRO sheet. 9. Encourage and monitor nutritional status daily and consult mold filler if indicated. 10. Implement neutropenic guidelines as needed. Outcome: Progressing Note: Evaluation of progress towards goal: pt is afebrile and free from s/s of infection. Will continue to monitor Problem: Knowledge Deficit Goal: Patient/patient medical representative demonstrates understanding of disease process, treatment [...] supplement as ordered 13. Collaborate with clinical mold filler 14. Include patient/ patient's medical representative in decisions related to nutrition Outcome: [...] be free from fall Description: Interventions: 1. [place] to environment 2. Hourly rounds addressing the [...] non-skid footwear 11. Teach patient and patient medical representative to maintain environment for safety and [...] (cane, walker) within reach 19. Request patient medical representative bring adaptive equipment/mobility aids from home or obtain and provide as needed 20. Consult pharmacy regarding effects of med's affecting mobility, cognition, and alternatives 21. Obtain physician order for PT if risk factors associated with mobility are present 22. Obtain physician order for OT as appropriate 23. Utilize diversional activities 24. Educate patient and patient medical representative how to maintain a safe environment during visitation times (notify nurse prior to leaving bedside) 25. Consider appropriateness of medical or non-general medical practitioner 26. Set up voiding schedule as appropriate [...] decisions. Called son Ashok. Ashok would like [facility] [place]-he has been there before. Referral sent. - [...] Description: INTERVENTIONS: 1. Encourage patient or legal medical representative to report early pain and ask [...] per policy 9. Teach patient or legal medical representative interventions for comforting Outcome: Progressing Note: [...] at the bedside 7. Instruct patient/ patient medical representative about use of safety devices 8. Include patient/ patient medical representative in decisions related to safety Outcome: [...] hygiene technique. 7. Identify and instruct patient/patient medical representative in use of appropriate isolation precautions for identified infection/symptoms. 8. Provide and discuss with patient/patient medical representative on educational MDRO sheet. 9. Encourage and monitor nutritional status daily and consult mold filler if indicated. 10. Implement neutropenic guidelines as needed. Outcome: Progressing Note: Evaluation of progress towards goal: patient remains afebrile, will continue to monitor labs Problem: Knowledge Deficit Goal: Patient/patient medical representative demonstrates understanding of disease process, treatment [...] Score of =/> 25 or indicated by [facility] Assessment Goal: Patient should be free from fall Description: Interventions: 1. [place] to environment 2. Hourly rounds addressing the [...] non-skid footwear 11. Teach patient and patient medical representative to maintain environment for safety and [...] (cane, walker) within reach 19. Request patient medical representative bring adaptive equipment/mobility aids from home or obtain and provide as needed 20. Consult pharmacy regarding effects of med's affecting mobility, cognition, and alternatives 21. Obtain physician order for PT if risk factors associated with mobility are present 22. Obtain physician order for OT as appropriate 23. Utilize diversional activities 24. Educate patient and patient medical representative how to maintain a safe environment during visitation times (notify nurse prior to leaving bedside) 25. Consider appropriateness of medical or non-general medical practitioner 26. Set up voiding schedule as appropriate (every 2 hours) Outcome: Progressing Note: Evaluation of progress towards goal: patient remains free from falls Images from the original note were not included. DISCHARGE PLANNING NOTE Hospital Chief Financial Officer met with patient, introduced self, and explained role. Patient educated on safe discharge plan. Pt admitted 06/29/2024 with Acute blood loss anemia [D62] Fall in home, initial encounter [W19.XXXA, Y92.009] per chart review. Consults: Trauma and Urology Discharge Barriers per Daily Transition Rounds and chart review: PT/OT eval, bilat duplex, oxygen, H&H q12 Past Medical History: Diagnosis Date [place] [place] Coronary artery disease D[place] [place], initial encounter 06/29/2024 Hemorrhoids Hyperlipidemia Hypertension Kidney stone Memory loss Myocardial infarction [place] [place] Urinary tract infection Prior to admission patient [...] steps into home. PCP: REINALDO CHAKRABORTY Pharmacy: [facility] PCP and pharmacy confirmed with patient. CN [...] in laws house Sons address is [address] [place] [address] Services Requested: Services Requested Patient expects to [...] Description: INTERVENTIONS: 1. Encourage patient or legal medical representative to report early pain and ask [...] per policy 9. Teach patient or legal medical representative interventions for comforting Outcome: Progressing Note: [...] at the bedside 7. Instruct patient/ patient medical representative about use of safety devices 8. Include patient/ patient medical representative in decisions related to safety Outcome: [...] hygiene technique. 7. Identify and instruct patient/patient medical representative in use of appropriate isolation precautions for identified infection/symptoms. 8. Provide and discuss with patient/patient medical representative on educational MDRO sheet. 9. Encourage and monitor nutritional status daily and consult mold filler if indicated. 10. Implement neutropenic guidelines as needed. Outcome: Progressing Note: Evaluation of progress towards goal: Problem: Knowledge Deficit Goal: Patient/patient medical representative demonstrates understanding of disease process, treatment [...] supplement as ordered 13. Collaborate with clinical mold filler 14. Include patient/ patient's medical representative in decisions related to nutrition Outcome: [...] Score of =/> 25 or indicated by [facility] Assessment Goal: Patient should be free from fall Description: Interventions: 1. [place] to environment 2. Hourly rounds addressing the [...] non-skid footwear 11. Teach patient and patient medical representative to maintain environment for safety and [...] (cane, walker) within reach 19. Request patient medical representative bring adaptive equipment/mobility aids from home or obtain and provide as needed 20. Consult pharmacy regarding effects of med's affecting mobility, cognition, and alternatives 21. Obtain physician order for PT if risk factors associated with mobility are present 22. Obtain physician order for OT as appropriate 23. Utilize diversional activities 24. Educate patient and patient medical representative how to maintain a safe environment during visitation times (notify nurse prior to leaving bedside) 25. Consider appropriateness of medical or non-general medical practitioner 26. Set up voiding schedule as appropriate [...] Description: INTERVENTIONS: 1. Encourage patient or legal medical representative to report early pain and ask [...] per policy 9. Teach patient or legal medical representative interventions for comforting Outcome: Progressing Note: [...] at the bedside 7. Instruct patient/ patient medical representative about use of safety devices 8. Include patient/ patient medical representative in decisions related to safety Outcome: [...] Description: INTERVENTIONS: 1. Encourage patient or legal medical representative to report early pain and ask [...] per policy 9. Teach patient or legal medical representative interventions for comforting Outcome: Progressing Note: [...] at the bedside 7. Instruct patient/ patient medical representative about use of safety devices 8. Include patient/ patient medical representative in decisions related to safety Outcome: [...] Limitations: Strict bedrest documented in this encounter [facility] 07-04-2024 History of Present illness Narrative [facility] Department of Pharmacy Pharmacy-Physician Communication Pt name: Neptali Loyola Room: [place] [address] Ru Schwarz MD, Neptali Loyola [...] at the same dose and frequency per [facility] approved policy. Thank you. If we can offer more assistance, please feel free to call us at [phone]. Ismael Flores RPH Images from the original note were not included. Sonido Trinidad Jr., M.D., Caden Friedman M.D., Mookie Frey M.D., Debra eKrr M.D., Susana Almeida M.D, Alfred Valenzuela M.D., [...] Procedure Component Value Units Date/Time Urine culture [[id number]] Collected: 06/29/24 0206 Specimen: Urine from Jorgensen Catheter Specimen Updated: 06/30/24721 Specimen Notes URINE RECEIVED WITHOUT PRESERVATIVE Culture NO GROWTH AT <1000 CFU/mL Urine culture [[id number]] Collected: 06/28/24 210 Specimen: Urine from Jorgensen Catheter Specimen Updated: 06/30/24 0908 Culture NO GROWTH AT <1000 CFU/mL Blood culture, peripheral #1 [[id number]] Collected: 06/28/241909 Specimen: Blood Updated: 07/02/242229 Specimen Notes PENDING Culture NO GROWTH 4 DAYS Blood culture, peripheral #2 [[id number]] Collected: 06/28/24 190 Specimen: Blood Updated: 07/02/242230 Specimen Notes PENDING Culture NO GROWTH 4 DAYS SARS/FLU A+B/RSV by NAAT/Molecular (M4RT Collection Tube) [[id number]] Collected: 06/28/241809 Specimen: Nasopharynx Updated: 06/28/241946 FLU [...] non-distended, no signs of peritonitis Lines/drains: 16 [place] Jorgensen catheter in place with light brown [...] - recent lithotripsy and stent placement at [facility] -Consult to Urology - serial hgb, trend [...] 07/03 Comorbidities/Medical issues: Neuro- Pulm- Cardio- CAD, SD, HTN, Afib on Eliquis GI- -CKD, nephrolithiasis [...] 50 % in water (D50W) flu vacc [id number] 6mos up(PF) glucagon (human recombinant) ipratropium-albuteroL magnesium [...] mL/hr Soraida Mcgovern PA-C Trauma Services Pager: [phone] 11:16 AM 07/03/24 Soraida Mcgovern PA-C 07/03/24 4701 Images from the original note were not [...] Thank you, Bernarda Dennis RN Rapid Response: [facility] TRAUMA SURGERY - PROGRESS NOTE Patient: Neptali Loyola Date of : 1945 AGE 78 y.o. SEX male Assessment / Plan Neptali Loyola 78 y.o. male Mechanism: Fall Injuries/Traumatic issues: Left Renal Hematoma - recent lithotripsy and stent placement at [facility] -Consult to Urology - serial hgb, trend [...] closely Comorbidities/Medical issues: Neuro- Pulm- Cardio- CAD, SD, HTN, Afib on Eliquis GI- -CKD, nephrolithiasis [...] % in water (D50W) fentaNYL flu vacc [id number] 6mos up(PF) glucagon (human recombinant) ipratropium-albuteroL magnesium [...] can be reached via Patient Touch Pager: [phone] MARIA A Klein 07/02/24 1013 Images from [...] Thank you, AYSE RAYO RN Rapid Response: [facility] Images from the original note were not [...] Procedure Component Value Units Date/Time Urine culture [[id number]] Collected: 06/29/24 0206 Specimen: Urine from Jorgensen Catheter Specimen Updated: 06/30/24 0722 Specimen Notes URINE RECEIVED WITHOUT PRESERVATIVE Culture NO GROWTH AT <1000 CFU/mL Urine culture [[id number]] Collected: 06/28/24 2101 Specimen: Urine from Jorgensen Catheter Specimen Updated: 06/30/24 0908 Culture NO GROWTH AT <1000 CFU/mL Blood culture, peripheral #1 [[id number]] Collected: 06/28/24 191 Specimen: Blood Updated: 07/01/242229 Specimen Notes PENDING Culture NO GROWTH 3 DAYS Blood culture, peripheral #2 [[id number]] Collected: 06/28/241900 Specimen: Blood Updated: 07/01/242230 Specimen Notes PENDING Culture NO GROWTH 3 DAYS SARS/FLU A+B/RSV by NAAT/Molecular (M4RT Collection Tube) [[id number]] Collected: 06/28/241809 Specimen: Nasopharynx Updated: 06/28/241946 FLU [...] non-distended, no signs of peritonitis Lines/drains: 16 Azerbaij[place] Jorgensen catheter in place with light brown [...] Thank you, Bernarda Dennis RN Rapid Response: [facility] Images from the original note were not [...] Procedure Component Value Units Date/Time Urine culture [[id number]] Collected: 06/29/24 0206 Specimen: Urine from Jorgensen Catheter Specimen Updated: 06/30/24 0722 Specimen Notes URINE RECEIVED WITHOUT PRESERVATIVE Culture NO GROWTH AT <1000 CFU/mL Urine culture [[id number]] Collected: 06/28/24 210 Specimen: Urine from Jorgensen Catheter Specimen Updated: 06/30/24 0908 Culture NO GROWTH AT <1000 CFU/mL Blood culture, peripheral #1 [[id number]] Collected: 06/28/241909 Specimen: Blood Updated: 06/30/242229 Specimen Notes PENDING Culture NO GROWTH 2 DAYS Blood culture, peripheral #2 [[id number]] Collected: 06/28/24 190 Specimen: Blood Updated: 06/30/242230 Specimen Notes PENDING Culture NO GROWTH 2 DAYS SARS/FLU A+B/RSV by NAAT/Molecular (M4RT Collection Tube) [[id number]] Collected: 06/28/241809 Specimen: Nasopharynx Updated: 06/28/241946 FLU [...] non-distended, no signs of peritonitis Lines/drains: 16 Azerbaij[place] J[address] catheter in place with a violeta [...] % in water (D50W) fentaNYL flu vacc [id number] 6mos up(PF) glucagon (human recombinant) ipratropium-albuteroL magnesium [...] Date of 1945 Hospital Day: 2 day(s) eNptali Loyola is a 78 y.o. male who presented to [facility] ED via EMS as a Level 2 [...] Procedure Component Value Units Date/Time Urine culture [[id number]] Collected: 06/29/24 0206 Specimen: Urine from Jorgensen Catheter Specimen Updated: 06/30/24 0722 Specimen Notes URINE RECEIVED WITHOUT PRESERVATIVE Culture NO GROWTH AT <1000 CFU/mL Urine culture [[id number]] Collected: 06/28/24 2101 Specimen: Urine from Jorgensen Catheter Specimen Updated: 06/30/24 0908 Culture NO GROWTH AT <1000 CFU/mL Blood culture, peripheral #1 [[id number]] Collected: 06/28/24 191 Specimen: Blood Updated: 06/30/242229 Specimen Notes PENDING Culture NO GROWTH 2 DAYS Blood culture, peripheral #2 [[id number]] Collected: 06/28/24 190 Specimen: Blood Updated: 06/30/242230 Specimen Notes PENDING Culture NO GROWTH 2 DAYS SARS/FLU A+B/RSV by NAAT/Molecular (M4RT Collection Tube) [[id number]] Collected: 06/28/24 181 Specimen: Nasopharynx Updated: 06/28/241946 [...] BID, Lipitor PMH: CAD, hypertension, hyperlipidemia, previous SD, Afib, pacemaker ECHO in 2023 demonstrating EF [...] PIVs Arterial line Disposition: Guarded, SICU Julia oCnroy DO OBDEBI Resident, PGY-1 SICU Cosigned by [...] failure with hypoxia Wilberto Loomis MD, FACS [facility] General Surgeons Minimally Invasive Robotic Surgery Surgical Critical Care Trauma Office: [phone] Please feel free to call with questions [...] % in water (D50W) fentaNYL flu vacc [id number] 6mos up(PF) glucagon (human recombinant) ipratropium-albuteroL magnesium [...] non-distended, no signs of peritonitis Lines/drains: 16 Azerbaij[place] Jorg[address] catheter in place with a violeta [...] a 78 y.o. male who presented to [facility] ED via EMS as a Level 2 [...] Procedure Component Value Units Date/Time Urine culture [[id number]] Resulted: 06/29/24 0320 Specimen: Urine Updated: 06/29/24 0331 Urine culture [[id number]] Collected: 06/28/24 2100 Specimen: Urine Updated: 06/29/24 1454 Blood culture, peripheral #1 [[id number]] Collected: 06/28/24 1910 Specimen: Blood Updated: 06/29/242229 Specimen Notes PENDING Culture NO GROWTH 1 DAY Blood culture, peripheral #2 [[id number]] Collected: 06/28/24 190 Specimen: Blood Updated: 06/29/242230 Specimen Notes PENDING Culture NO GROWTH 1 DAY SARS/FLU A+B/RSV by NAAT/Molecular (M4RT Collection Tube) [[id number]] Collected: 06/28/24 181 Specimen: Nasopharynx Updated: 06/28/241946 [...] BID, Lipitor PMH: CAD, hypertension, hyperlipidemia, previous SD, Afib, pacemaker ECHO in 2023 demonstrating EF [...] today = 34 minutes. 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 SICU Academic Critical Care PROGRESS NOTE Admission Date: 06/29/2024 1:19 AM Attending Physician: Ru Schwarz MD Date of 1945 Hospital Day: 0 day(s) Neptali Loyola is a 78 y.o. male who presented to [facility] ED via EMS as a Level 2 [...] Procedure Component Value Units Date/Time Urine culture [[id number]] Resulted: 06/29/24319 Specimen: Urine Updated: 06/29/24330 Blood culture, peripheral #2 [[id number]] Collected: 06/28/241906 Specimen: Blood, Peripheral Draw Updated: 06/28/241913 Blood culture, peripheral #1 [[id number]] Collected: 06/28/241858 Specimen: Blood, Peripheral Draw Updated: 06/28/241913 SARS/FLU A+B/RSV by NAAT/Molecular (M4RT Collection Tube) [[id number]] Collected: 06/28/241809 Specimen: Nasopharynx Updated: 06/28/241946 FLU [...] Meds: None PMH: CAD, hypertension, hyperlipidemia, previous SD, AFib Home meds: Eliquis, Plavix 4. GI [...] today = 34 minutes. 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 Admit Date: 06/29/2024 Discharge Date: 07/04/2024 Admitting Physician: Ru Schwarz MD Consults: Urology and SICU Discharge Diagnoses/Chief Complaint: fall Primary Problem Fall in home, initial encounter Patient Active Problem List Diagnosis Date Noted Fall in home, initial encounter 06/29/2024 Past Medical History: Diagnosis Date [place] [place] Coronary artery disease Dementia [place] [place] home, initial encounter 06/29/2024 Hemorrhoids Hyperlipidemia Hypertension Kidney stone Memory loss Myocardial infarction [place] [place] Urinary tract infection HOSPITAL COURSE SUMMARY: Neptali Loyola is an 78 y.o. White or male presented to [facility] ED via EMS as a level 2 [...] - recent lithotripsy and stent placement at [facility] -Consult to Urology - serial hgb, trend [...] Family Medicine Why: 3:00 pm Contact information: [facility] [id number] Kelvin Langston MD Follow up. Specialty: Urology Why: Follow up for management of kidney stones Contact information: [address] Dept of Urology [facility] [address] Scheduled Appointments YOUR SCHEDULED APPOINTMENTS Please make note of this in your schedule as to not miss or call to reschedule. Thank you! REINALDO CHAKRABORTY PCP - General Family Medicine phone [phone] fax [phone] [place] [id number] Next Steps: Go on 07/08/2024 Instructions: 3:00 [...] For NEW patients, MD will not prescribe intermodal dispatcher pain medication. Time spent: 45 minutes SORAIDA MCGOVERN PA-C 07/04/24 12:17 PM Soraida Mcgovern PA-C 07/04/24 1217 documented in this encounter [facility] 07-04-2024 Progress note Formatting of t his note might be different from the original. DISCHARGE PLANNING NOTE Case discussed in daily transition rounds and chart reviewed by CN. Barriers to discharge include no medical barriers Discharge Plan remains: [facility] aware of dc order today-transport ambulette pickle pumper time is 4pm. HENS complete. CRF in dc packet and sent to [facility]. Patient aware of dc at 4p as well. CN will continue to follow and is available should any further needs arise. - Julisa Del Toro RN 07/04/24 11:25 AM [facility] 07-04-2024 Plan of care note Problem: Pain Goal: Patient goal is pain score less than 4, able to rest, and participant in treatment plan as appropriate Description: INTERVENTIONS: 1. Encourage patient or legal medical representative to report early pain and ask [...] per policy 9. Teach patient or legal medical representative interventions for comforting Outcome: Progressing Note: [...] at the bedside 7. Instruct patient/ patient medical representative about use of safety devices 8. Include patient/ patient medical representative in decisions related to safety Outcome: [...] hygiene technique. 7. Identify and instruct patient/patient medical representative in use of appropriate isolation precautions for identified infection/symptoms. 8. Provide and discuss with patient/patient medical representative on educational MDRO sheet. 9. Encourage and monitor nutritional status daily and consult mold filler if indicated. 10. Implement neutropenic guidelines as needed. Outcome: Progressing Note: Evaluation of progress towards goal: Pt is afebrile and will remain free from signs of infection during shift. Labs and PIV insertion site being monitored Problem: Knowledge Deficit Goal: Patient/patient medical representative demonstrates understanding of disease process, treatment [...] goal: Discharge planning in process. Plan is [facility] Problem: Potential for Compromised Skin Integrity Goal: [...] supplement as ordered 13. Collaborate with clinical mold filler 14. Include patient/ patient's medical representative in decisions related to nutrition Outcome: Progressing Note: Evaluation of progress towards goal: pt is consuming an adequate amt of meals Problem: Moderate - High Risk Fall Score Description: Issa Fall Score of =/> 25 or indicated by [facility] Assessment Goal: Patient should be free from fall Description: Interventions: 1. [place] to environment 2. Hourly rounds addressing the [...] non-skid footwear 11. Teach patient and patient medical representative to maintain environment for safety and [...] (cane, walker) within reach 19. Request patient medical representative bring adaptive equipment/mobility aids from home or obtain and provide as needed 20. Consult pharmacy regarding effects of med's affecting mobility, cognition, and alternatives 21. Obtain physician order for PT if risk factors associated with mobility are present 22. Obtain physician order for OT as appropriate 23. Utilize diversional activities 24. Educate patient and patient medical representative how to maintain a safe environment during visitation times (notify nurse prior to leaving bedside) 25. Consider appropriateness of medical or non-general medical practitioner 26. Set up voiding schedule as appropriate (every 2 hours) Outcome: Progressing Note: Evaluation of progress towards goal: Pt will remain free from falls during shift. Call light in reach, bed in lowest position, bed and chair wheels locked, 2/4 side rails up, nonslip socks on, overbed table and personal belongings within reach, hourly rounding being completed, RN [facility] to [facility]'s [facility] 07-03-2024 Progress note Formatting of t his note might be different from the original. DISCHARGE PLANNING NOTE 4:30pm Rescheduled to 4pm 2.20.25 per SW request. Ambulette transport via PTN confirmed in [facility] to [facility] 07.04.24 at 12:00pm [employer] 07-03-2024 Progress note Formatting of t his note might be different from the original. DISCHARGE PLANNING NOTE Prior Auth approved for admission to : [facility]/ [place], [place] (P# ; F# ) Approval # [id number] Valid for Dates: 07/03/2024-07/09/2024 [employer] 07-03-2024 Plan of care note Problem: Pain Goal: Patient goal is pain score less than 4, able to rest, and participant in treatment plan as appropriate Description: INTERVENTIONS: 1. Encourage patient or legal medical representative to report early pain and ask [...] per policy 9. Teach patient or legal medical representative interventions for comforting Outcome: Adequate for [...] at the bedside 7. Instruct patient/ patient medical representative about use of safety devices 8. Include patient/ patient medical representative in decisions related to safety Outcome: Adequate for Discharge Note: Evaluation of progress towards goal: Patient safety maintained during shift with use of 5 rights, patient and staff using hygiene, patient environment free of harm and debrie. Will continue to monitor during shift. Problem: Knowledge Deficit Goal: Patient/patient medical representative demonstrates understanding of disease process, treatment [...] Score of =/> 25 or indicated by [facility] Assessment Goal: Patient should be free from fall Description: Interventions: 1. [place] to environment 2. Hourly rounds addressing the [...] non-skid footwear 11. Teach patient and patient medical representative to maintain environment for safety and [...] (cane, walker) within reach 19. Request patient medical representative bring adaptive equipment/mobility aids from home or obtain and provide as needed 20. Consult pharmacy regarding effects of med's affecting mobility, cognition, and alternatives 21. Obtain physician order for PT if risk factors associated with mobility are present 22. Obtain physician order for OT as appropriate 23. Utilize diversional activities 24. Educate patient and patient medical representative how to maintain a safe environment during visitation times (notify nurse prior to leaving bedside) 25. Consider appropriateness of medical or non-general medical practitioner 26. Set up voiding schedule as appropriate [...] shift. Will continue to monitor during shift. [facility] 07-03-2024 Progress note Formatting of t his note might be different from the original. DISCHARGE PLANNING NOTE Referral sent to multiple facilities or agencies due to patient is without preference. I [facility] 07-03-2024 Progress note Formatting of t his note might be different from the original. DISCHARGE PLANNING NOTE ADILENE called patient Ashok barroso and left a voicemail asking for a return call. SW informed son in voicemail that [facility] is unable to accept due to no [...] be started with [facility]. ADILENE tasked [facility] to start auth. - FALLON ASHFORD 07/03/24 3:03 PM SW informed patient of DC tomorrow. ADILENE also called patient son of discharge tomorrow at 4pm. ADILENE tasked [facility] to set up transport. - FALLON ASHFORD 07/03/24 3:53 PM [facility] 07-02-2024 Plan of care note Problem: Pain Goal: Patient goal is pain score less than 4, able to rest, and participant in treatment plan as appropriate Description: INTERVENTIONS: 1. Encourage patient or legal medical representative to report early pain and ask [...] per policy 9. Teach patient or legal medical representative interventions for comforting Outcome: Progressing Note: [...] at the bedside 7. Instruct patient/ patient medical representative about use of safety devices 8. Include patient/ patient medical representative in decisions related to safety Outcome: [...] hygiene technique. 7. Identify and instruct patient/patient medical representative in use of appropriate isolation precautions for identified infection/symptoms. 8. Provide and discuss with patient/patient medical representative on educational MDRO sheet. 9. Encourage and monitor nutritional status daily and consult mold filler if indicated. 10. Implement neutropenic guidelines as needed. Outcome: Progressing Note: Evaluation of progress towards goal: patient remains afebrile, will continue to monitor labs Problem: Knowledge Deficit Goal: Patient/patient medical representative demonstrates understanding of disease process, treatment [...] supplement as ordered 13. Collaborate with clinical mold filler 14. Include patient/ patient's medical representative in decisions related to nutrition Outcome: [...] be free from fall Description: Interventions: 1. [place] to environment 2. Hourly rounds addressing the [...] non-skid footwear 11. Teach patient and patient medical representative to maintain environment for safety and [...] (cane, walker) within reach 19. Request patient medical representative bring adaptive equipment/mobility aids from home or obtain and provide as needed 20. Consult pharmacy regarding effects of med's affecting mobility, cognition, and alternatives 21. Obtain physician order for PT if risk factors associated with mobility are present 22. Obtain physician order for OT as appropriate 23. Utilize diversional activities 24. Educate patient and patient medical representative how to maintain a safe environment during visitation times (notify nurse prior to leaving bedside) 25. Consider appropriateness of medical or non-general medical practitioner 26. Set up voiding schedule as appropriate (every 2 hours) Outcome: Progressing Note: Evaluation of progress towards goal: patient remains free from falls [facility] [employer] [facility] 07-02-2024 Progress note Formatting of t his note is different from the original. Physical Therapy Evaluation Discharge Recommendations PT Recommendations: Alf Facility SNF/ECF Comments: Recommend SNF as pt [...] 6 Clicks: Basic Mobility Raw Score: 13 [facility] G Code Modifier: CK Therapy Plan [...] lithotripsy and stent placed on 06/19/24 at [facility]. Past Medical History: Diagnosis Date [place] [place]24 Coronary artery disease Dementia [place] [place] home, initial encounter 06/29/2024 Hemorrhoids Hyperlipidemia Hypertension Kidney stone Memory loss Myocardial infarction [place] [place] Urinary tract infection History reviewed. No pertinent [...] ok for PT/OT--OOB. Equipment: gait belt, RW Telemetry/Neck Skewer: Yes Oxygen Order : SpO2 90% or [...] Goal: Patient will perform transfers with Modified Declo Dates: Start: 07/02/24 Expected End: 07/25/24 Description: Goal Description: Disciplines: PT Physical Therapy Care Plan (Resolved) There are no resolved problems. Principal Problem: Fall in home, initial encounter [facility] [employer] 07-02-2024 Progress note Formatting of t his note is different from the original. Occupational Therapy Evaluation Discharge Recommendations OT Recommendations : Alf Facility SNF/ECF Comments: recommend SNF at discharge [...] little Scoring Daily Activity Raw Score: 13 [facility] G Code Modifier: CL Pt admit 06/29/24 after fall from standing. Pt hypotensive on arrival s/p 3 units of PRBC. Dx: L renal hematoma, hypotension, acute blood loss anemia Urology consulted. Pt with hematuria, maintain jorgensen catheter. Pt with h/o lithotripsy with stent placement at [facility] on 06/19/24 Past Medical History: Diagnosis Date Cardiac [place] [place]/2024 Coronary artery disease Dementia [place] [place] home, initial encounter 06/29/2024 Hemorrhoids Hyperlipidemia Hypertension Kidney stone Memory loss Myocardial infarction [place] [place] Urinary tract infection History reviewed. No pertinent [...] mobility guideline:yes, pass Equipment: gait belt, RW Telemetry/Neck Skewer: Yes Oxygen Order : spo2 90% or [...] Principal Problem: Fall in home, initial encounter [facility] 07-02-2024 Plan of care note Problem: Pain Goal: Patient goal is pain score less than 4, able to rest, and participant in treatment plan as appropriate Description: INTERVENTIONS: 1. Encourage patient or legal medical representative to report early pain and ask [...] per policy 9. Teach patient or legal medical representative interventions for comforting Outcome: Progressing Note: [...] at the bedside 7. Instruct patient/ patient medical representative about use of safety devices 8. Include patient/ patient medical representative in decisions related to safety Outcome: [...] hygiene technique. 7. Identify and instruct patient/patient medical representative in use of appropriate isolation precautions for identified infection/symptoms. 8. Provide and discuss with patient/patient medical representative on educational MDRO sheet. 9. Encourage and monitor nutritional status daily and consult mold filler if indicated. 10. Implement neutropenic guidelines as needed. Outcome: Progressing Note: Evaluation of progress towards goal: pt is afebrile and free from s/s of infection. Will continue to monitor Problem: Knowledge Deficit Goal: Patient/patient medical representative demonstrates understanding of disease process, treatment [...] supplement as ordered 13. Collaborate with clinical mold filler 14. Include patient/ patient's medical representative in decisions related to nutrition Outcome: [...] be free from fall Description: Interventions: 1. [place] to environment 2. Hourly rounds addressing the [...] non-skid footwear 11. Teach patient and patient medical representative to maintain environment for safety and [...] (cane, walker) within reach 19. Request patient medical representative bring adaptive equipment/mobility aids from home or obtain and provide as needed 20. Consult pharmacy regarding effects of med's affecting mobility, cognition, and alternatives 21. Obtain physician order for PT if risk factors associated with mobility are present 22. Obtain physician order for OT as appropriate 23. Utilize diversional activities 24. Educate patient and patient medical representative how to maintain a safe environment during visitation times (notify nurse prior to leaving bedside) 25. Consider appropriateness of medical or non-general medical practitioner 26. Set up voiding schedule as appropriate (every 2 hours) Outcome: Progressing Note: Evaluation of progress towards goal: bed is locked and in lowest position. Call light within reach and hourly rounding maintained [employer] 07-02-2024 Nurse Note Pt pulse ox at 84%, pt placed on 2 liters of oxygen, notified patients nurse Ligia Soliz Rn of 02 placement. Pt resting quietly. [employer] 07-02-2024 Progress note Formatting of t his [...] decisions. Called son Ashok. Ashok would like [facility]-he has been there before. Referral sent. - Julisa Del Toro RN 07/02/24 3:38 PM [employer] [facility] 07-02-2024 Progress note Formatting of t his note is different from the original. Physical Therapy PT Type of Visit: Medical deferral Reason For Medical Deferral: Off unit Off Unit: Testing [facility] 07-02-2024 Progress note Formatting of t his note is different from the original. Occupational Therapy OT Type of Visit: Medical deferral Reason For Medical Deferral: Off unit Off Unit: Testing Activity Limitations: Strict bedrest [facility] 07-02-2024 Consult note Formatting of th is note is different from the original. NUTRITION ADULT INITIAL EVALUATION NUTRITION ASSESSMENT: Reason to be seen: screen: PO/wt loss Patient History: Admit Diagnosis: Patient Active Problem List Diagnosis Fall in home, initial encounter Past Medical History: Past Medical History: Diagnosis Date Cardiac [place] [place]2024 Coronary artery disease Dementia [place] [place] Fall [place] home, initial encounter 06/29/2024 Hemorrhoids Hyperlipidemia Hypertension Kidney stone Memory loss Myocardial infarction [place] [place] Urinary tract infection Past Surgical History:History reviewed. No pertinent surgical history. Social/ Cognitive/ Economic: A/Ox4; dementia but per RN, pt answers questions appropriately. Per son, PMH includes alcoholism, but pt no longer drinks EtOH. Brief Clinical Summary: 78 y.o. White or male. Presented to [facility] ED via EMS as a level 2 trauma after sustaining a fall from standing height; upgraded to level 1 given hypotension. PMH: Afib, CAD, dementia, SD. 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 Skin (per nursing flow sheets): Skin Color: [place] (07/02/24521) Skin Temp: Warm; Dry (07/02/24521) Wound [...] the procedure and not feeling well. 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 [place] Body Weight: 80.9 kg Percent [place] Body Weight: >100% Weight Changes: up this admit Body Mass Index: Body mass index is 29.51 kg/m . BMI Category: Pre-obese (25.00- 29.99) Comparative Standards: Estimated Energy Needs: 7313-1488 kcals daily. Method and weight used: 25-30 kcal/kg Estimated Protein Needs: 97-161 grams daily. Method and weight used: 1.2-2g protein/kg Estimated Fluid Needs: 5361-9809 ml daily. Method weight used: 1 ml/kcal [...] MS, RD, LD Clinical Dietitian Direct Line [facility] 07-02-2024 Consult note Formatting of th is note is different from the original. NUTRITION ADULT INITIAL EVALUATION NUTRITION ASSESSMENT: Reason to be seen: screen: PO/wt loss Patient History: Admit Diagnosis: Patient Active Problem List Diagnosis Fall in home, initial encounter Past Medical History: Past Medical History: Diagnosis Date Cardiac arrest [facility] 02/2024 Coronary artery disease Dementia [facility] Fall in home, initial encounter 06/29/2024 Hemorrhoids Hyperlipidemia Hypertension Kidney stone Memory loss Myocardial infarction ([facility] Urinary tract infection Past Surgical History:History reviewed. No pertinent surgical history. Social/ Cognitive/ Economic: A/Ox4; dementia but per RN, pt answers questions appropriately. Per son, PMH includes alcoholism, but pt no longer drinks EtOH. Brief Clinical Summary: 78 y.o. White or male. Presented to [facility] ED via EMS as a level 2 trauma after sustaining a fall from standing height; upgraded to level 1 given hypotension. PMH: Afib, CAD, dementia, SD. 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 Skin (per nursing flow sheets): Skin Color: [place] (07/02/24521) Skin Temp: Warm; Dry (07/02/24521) Wound [...] the procedure and not feeling well. 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 [place] Body Weight: 80.9 kg Percent [place] Body Weight: >100% Weight Changes: up this admit Body Mass Index: Body mass index is 29.51 kg/m . BMI Category: Pre-obese (25.00- 29.99) Comparative Standards: Estimated Energy Needs: 8626-0632 kcals daily. Method and weight used: 25-30 kcal/kg Estimated Protein Needs: 97-161 grams daily. Method and weight used: 1.2-2g protein/kg Estimated Fluid Needs: 8835-3148 ml daily. Method weight used: 1 ml/kcal [...] at home per son. He presented to [facility]. We will CT scan showed large perinephric [...] History: Diagnosis Date Coronary artery disease Dementia ([facility] Hemorrhoids Memory loss [place]ocardial [place] [place] Urinary tract infection Past Surgical History: History [...] Resource Strain: Patient Declined (04/24/2024) Received from [facility] Overall Financial Resource Strain (CARDIA) Difficulty of Paying Living Expenses: Patient declined Food Insecurity: No Food Insecurity (06/29/2024) Hunger Screening Food Insecurity - Worry: Never True Food Insecurity - Inability: Never True Transportation Needs: Patient Declined (04/24/2024) Received from [facility] TA - Transportation Lack of Transportation (Medical): Patient declined Lack of Transportation (Non-Medical): Patient declined Physical Activity: Patient Declined (04/24/2024) Received from [facility] Exercise Vital Sign Days of Exercise per Week: Patient declined Minutes of Exercise per Session: Patient declined Stress: Patient Declined (04/24/2024) Received from [facility] - Occupational Stress Questionnaire Feeling of Stress : Patient declined Social Connections: Patient Declined (04/24/2024) Received from [facility] Social Connection and Isolation Panel [NHANES] Frequency of Communication with Friends and Family: Patient declined Frequency of Social Gatherings with Friends and Family: Patient declined Attends Shinto Services: Patient declined Active Member of Clubs or Organizations: Patient declined Attends Club or Organization Meetings: Patient declined Marital Status: Patient declined Interpersonal Safety: Unknown (04/24/2024) Received from [facility] Humiliation, Afraid, Rape, and Kick questionnaire Fear of Current or Ex-Partner: Patient declined Emotionally Abused: Patient declined Physically Abused: Not on file Sexually Abused: Patient declined Housing Instability: Patient Declined (04/24/2024) Received from [facility] Housing Stability Vital Sign Unable to [...] CT abdomen and pelvis with contrast Order: [id number] Status: Final result Visible to patient: No (scheduled for 07/02/2024 8:00 PM) Next appt: None 0 Result Notes Details Reading Physician Reading Date Result Priority Fito Alexander MD [phone] 06/28/2024 STAT Narrative & Impression CT ABDOMEN [...] as necessary. Associated Order(s): IP CONSULT TO HAND PATCHER SICU Academic Critical Care CONSULTATION Name: Neptali Loyola Date: 06/29/2024 Length of Stay: 0 day(s) Chief Concern: Chief Complaint Patient presents with Trauma History of Present Illness Neptali Loyola is an 78 y.o. White or male presented to [facility] ED via EMS as a level 2 [...] History: Diagnosis Date Coronary [place] [place] Hem[place]oids Memory loss Myocardial [place] [place] Urinary tract infection History reviewed. No pertinent [...] Q6H famotidine, 20 mg, intravenous, Q24H [facility] insulin lispro, 2-10 Units, subcutaneous, Q6H lidocaine, 1 patch, transdermal, Daily polyethylene glycol, 17 g, oral, Daily sennosides-docusate sodium, 2 tablet, oral, BID sodium chloride, 3 mL, intravenous, Q12H [facility] dextrose 5 % in water, 100 mL/hr dextrose 5 % in water, 100 mL/hr lactated ringer's, 100 mL/hr, Last Rate: 100 mL/hr (06/29/24 8056) sodium chloride 0.9 %, 10 mL/hr sodium [...] Resource Strain: Patient Declined (04/24/2024) Received from [facility] Overall Financial Resource Strain (CARDIA) Difficulty of Paying Living Expenses: Patient declined Food Insecurity: No Food Insecurity (06/29/2024) Hunger Screening Food Insecurity - Worry: Never True Food Insecurity - Inability: Never True Transportation Needs: Patient Declined (04/24/2024) Received from [facility] PRAPARE - Transportation Lack of Transportation (Medical): Patient declined Lack of Transportation (Non-Medical): Patient declined Physical Activity: Patient Declined (04/24/2024) Received from [facility] Exercise Vital Sign Days of Exercise per Week: Patient declined Minutes of Exercise per Session: Patient declined Stress: Patient Declined (04/24/2024) Received from [facility] [employer] - Occupational Stress Questionnaire Feeling of Stress : Patient declined Social Connections: Patient Declined (04/24/2024) Received from [facility] Social Connection and Isolation Panel [NHANES] Frequency of Communication with Friends and Family: Patient declined Frequency of Social Gatherings with Friends and Family: Patient declined Attends Shinto Services: Patient declined Active Member of Clubs or Organizations: Patient declined Attends Club or Organization Meetings: Patient declined Marital Status: Patient declined Interpersonal Safety: Unknown (04/24/2024) Received from [facility] Humiliation, Afraid, Rape, and Kick questionnaire Fear of Current or Ex-Partner: Patient declined Emotionally Abused: Patient declined Sexually Abused: Patient declined Housing Instability: Patient Declined (04/24/2024) Received from [facility] Housing Stability Vital Sign Unable to [...] Procedure Component Value Units Date/Time Urine culture [[id number]] Resulted: 06/29/24319 Specimen: Urine Updated: 06/29/24330 Blood culture, peripheral #2 [[id number]] Collected: 06/28/241906 Specimen: Blood, Peripheral Draw Updated: 06/28/241913 Blood culture, peripheral #1 [[id number]] Collected: 06/28/241858 Specimen: Blood, Peripheral Draw Updated: 06/28/241913 SARS/FLU A+B/RSV by NAAT/Molecular (M4RT Collection Tube) [[id number]] Collected: 06/28/241809 Specimen: Nasopharynx Updated: 06/28/241946 FLU [...] Procedure Component Value Units Date/Time Urine culture [[id number]] Resulted: 06/29/24319 Specimen: Urine Updated: 06/29/24330 Blood culture, peripheral #2 [[id number]] Collected: 06/28/241906 Specimen: Blood, Peripheral Draw Updated: 06/28/241913 Blood culture, peripheral #1 [[id number]] Collected: 06/28/24 185 Specimen: Blood, Peripheral Draw Updated: 06/28/241913 SARS/FLU A+B/RSV by NAAT/Molecular (M4RT Collection Tube) [[id number]] Collected: 06/28/241809 Specimen: Nasopharynx Updated: 06/28/241946 FLU [...] Meds: None PMH: CAD, hypertension, hyperlipidemia, previous SD, AFib Home meds: Eliquis, Plavix 3. Resp: [...] and titration of care by critical care inking machine tender. Failure to do so may result in [...] 06/29/2024 10:06 AM documented in this encounter [facility] Progress note Formatting of t his note is different from the original. Occupational Therapy OT Type of Visit: Medical deferral Reason For Medical Deferral: Activity limitations Activity Limitations: Strict bedrest cont as time allows once pt has increased activity orders [facility] 07-01-2024 Plan of care note Problem: Pain Goal: Patient goal is pain score less than 4, able to rest, and participant in treatment plan as appropriate Description: INTERVENTIONS: 1. Encourage patient or legal medical representative to report early pain and ask [...] per policy 9. Teach patient or legal medical representative interventions for comforting Outcome: Progressing Note: [...] at the bedside 7. Instruct patient/ patient medical representative about use of safety devices 8. Include patient/ patient medical representative in decisions related to safety Outcome: [...] hygiene technique. 7. Identify and instruct patient/patient medical representative in use of appropriate isolation precautions for identified infection/symptoms. 8. Provide and discuss with patient/patient medical representative on educational MDRO sheet. 9. Encourage and monitor nutritional status daily and consult mold filler if indicated. 10. Implement neutropenic guidelines as needed. Outcome: Progressing Note: Evaluation of progress towards goal: patient remains afebrile, will continue to monitor labs Problem: Knowledge Deficit Goal: Patient/patient medical representative demonstrates understanding of disease process, treatment [...] Score of =/> 25 or indicated by [facility] Assessment Goal: Patient should be free from fall Description: Interventions: 1. [place] to environment 2. Hourly rounds addressing the [...] non-skid footwear 11. Teach patient and patient medical representative to maintain environment for safety and [...] (cane, walker) within reach 19. Request patient medical representative bring adaptive equipment/mobility aids from home or obtain and provide as needed 20. Consult pharmacy regarding effects of med's affecting mobility, cognition, and alternatives 21. Obtain physician order for PT if risk factors associated with mobility are present 22. Obtain physician order for OT as appropriate 23. Utilize diversional activities 24. Educate patient and patient medical representative how to maintain a safe environment during visitation times (notify nurse prior to leaving bedside) 25. Consider appropriateness of medical or non-general medical practitioner 26. Set up voiding schedule as appropriate (every 2 hours) Outcome: Progressing Note: Evaluation of progress towards goal: patient remains free from falls [facility] Hospital Discharge instructions Denisha Thurston - 07/01/2024 4:48 PM EST YOUR SCHEDULED APPOINTMENTS Please make note of this in your schedule as to not miss or call to reschedule. Thank you! MIGUEL GARCIA APRN-ELECTRIC 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 PCP - General Family Medicine phone [phone] fax [phone] [facility] [id number] Next Steps: Go on 07/08/2024 Instructions: 3:00 [...] For NEW patients, MD will not prescribe intermodal dispatcher pain medication. documented in this encounter [facility] Progress note Formatting of t his note is different from the original. Images from the original note were not included. DISCHARGE PLANNING NOTE Hospital Chief Financial Officer met with patient, introduced self, and explained role. Patient educated on safe discharge plan. Pt admitted 06/29/2024 with Acute blood loss anemia [D62] Fall in home, initial encounter [W19.XXXA, Y92.009] per chart review. Consults: Trauma and Urology Discharge Barriers per Daily Transition Rounds and chart review: PT/OT eval, bilat duplex, oxygen, H&H q12 Past Medical History: Diagnosis Date [place] [place] Coronary artery disease D[place] [place] home, initial encounter 06/29/2024 Hemorrhoids Hyperlipidemia Hypertension Kidney stone Memory loss Myocardial infarction [place] [place] Urinary tract infection Prior to admission patient [...] steps into home. PCP: REINALDO CHAKRABORTY Pharmacy: [facility] PCP and pharmacy confirmed with patient. CN [...] in laws house Sons address is [address] [place] [address] Services Requested: Services Requested Patient expects to [...] Julisa Del Toro RN 07/01/24 2:01 PM [facility] Plan of care note Problem: Pain Goal: Patient goal is pain score less than 4, able to rest, and participant in treatment plan as appropriate Description: INTERVENTIONS: 1. Encourage patient or legal medical representative to report early pain and ask [...] per policy 9. Teach patient or legal medical representative interventions for comforting Outcome: Progressing Note: [...] at the bedside 7. Instruct patient/ patient medical representative about use of safety devices 8. Include patient/ patient medical representative in decisions related to safety Outcome: [...] hygiene technique. 7. Identify and instruct patient/patient medical representative in use of appropriate isolation precautions for identified infection/symptoms. 8. Provide and discuss with patient/patient medical representative on educational MDRO sheet. 9. Encourage and monitor nutritional status daily and consult mold filler if indicated. 10. Implement neutropenic guidelines as needed. Outcome: Progressing Note: Evaluation of progress towards goal: Problem: Knowledge Deficit Goal: Patient/patient medical representative demonstrates understanding of disease process, treatment [...] supplement as ordered 13. Collaborate with clinical mold filler 14. Include patient/ patient's medical representative in decisions related to nutrition Outcome: [...] Score of =/> 25 or indicated by [facility] Assessment Goal: Patient should be free from fall Description: Interventions: 1. [place] to environment 2. Hourly rounds addressing the [...] non-skid footwear 11. Teach patient and patient medical representative to maintain environment for safety and [...] (cane, walker) within reach 19. Request patient medical representative bring adaptive equipment/mobility aids from home or obtain and provide as needed 20. Consult pharmacy regarding effects of med's affecting mobility, cognition, and alternatives 21. Obtain physician order for PT if risk factors associated with mobility are present 22. Obtain physician order for OT as appropriate 23. Utilize diversional activities 24. Educate patient and patient medical representative how to maintain a safe environment during visitation times (notify nurse prior to leaving bedside) 25. Consider appropriateness of medical or non-general medical practitioner 26. Set up voiding schedule as appropriate (every 2 hours) Outcome: Progressing Note: Evaluation of progress towards goal: Patient remains free from falls and injury, fall risk ID band on, fall prevention education and precautions provided and in place. Hourly rounds maintained, call light in reach, and safety measures in place. Additional Comments: [facility] 07-01-2024 Progress note Formatting of t his note is different from the original. Physical Therapy PT Type of Visit: Medical deferral Reason For Medical Deferral: RN deems inappropriate, Activity limitations RN Deems Inappropriate: Failed MOVES safety screen Activity Limitations: Strict bedrest [facility] 07-01-2024 Progress note Formatting of t his note is different from the original. Occupational Therapy OT Type of Visit: Medical deferral Reason For Medical Deferral: Activity limitations Activity Limitations: Strict bedrest [facility] 06-30-2024 Plan of care note Problem: Pain Goal: Patient goal is pain score less than 4, able to rest, and participant in treatment plan as appropriate Description: INTERVENTIONS: 1. Encourage patient or legal medical representative to report early pain and ask [...] per policy 9. Teach patient or legal medical representative interventions for comforting Outcome: Progressing Note: [...] at the bedside 7. Instruct patient/ patient medical representative about use of safety devices 8. Include patient/ patient medical representative in decisions related to safety Outcome: [...] every shift provided with CHG impregnated wipes [facility] [employer] 06-30-2024 Progress note Formatting of t his note is different from the original. Occupational Therapy OT Type of Visit: Medical deferral Reason For Medical Deferral: Activity limitations RN Deems Inappropriate: Failed MOVES safety screen Activity Limitations: Strict bedrest [facility] 06-30-2024 Progress note Formatting of [...] strict bedrest orders; attempt PT as appropriate) [facility] 06-30-2024 Plan of care note Problem: Pain Goal: Patient goal is pain score less than 4, able to rest, and participant in treatment plan as appropriate Description: INTERVENTIONS: 1. Encourage patient or legal medical representative to report early pain and ask [...] per policy 9. Teach patient or legal medical representative interventions for comforting Outcome: Progressing Note: [...] at the bedside 7. Instruct patient/ patient medical representative about use of safety devices 8. Include patient/ patient medical representative in decisions related to safety Outcome: [...] every shift provided with CHG impregnated wipes [employer] 06-29-2024 Progress note Formatting of t his [...] by: Shar Schaffer MD 06/29/2024 12:43 [employer] 06-29-2024 Progress note Formatting of t his note is different from the original. Occupational Therapy OT Type of Visit: Medical deferral Reason For Medical Deferral: Activity limitations RN Deems Inappropriate: Failed MOVES safety screen Activity Limitations: Strict bedrest [facility] 06-29-2024 Progress note Formatting of t his note is different from the original. Physical Therapy PT Type of Visit: Medical deferral Reason For Medical Deferral: RN deems inappropriate, Activity limitations RN Deems Inappropriate: Failed MOVES safety screen Activity Limitations: Strict bedrest [facility] 06-29-2024 Procedure note Procedure(s): INSERT ARTERIAL [...] for the archer components of the procedure. [employer] Work Phone: 06-29-2024 Procedure note Procedure(s): INSERT [...] of the procedure. documented in this encounter [facility] [employer] 06-29-2024 Consult note Associated Order (s): IP [...] at home per son. He presented to [facility]. We will CT scan showed large perinephric [...] History: Diagnosis Date Coronary artery disease Dementia ([facility] Hemorrhoids Memory loss Myocardial infarction ([facility]) Urinary tract infection Past Surgical [...] Resource Strain: Patient Declined (04/24/2024) Received from [facility] Overall Financial Resource Strain (CARDIA) Difficulty of Paying Living Expenses: Patient declined Food Insecurity: No Food Insecurity (06/29/2024) Hunger Screening Food Insecurity - Worry: Never True Food Insecurity - Inability: Never True Transportation Needs: Patient Declined (04/24/2024) Received from [facility] PRAPARE - Transportation Lack of Transportation (Medical): Patient declined Lack of Transportation (Non-Medical): Patient declined Physical Activity: Patient Declined (04/24/2024) Received from [facility] Exercise Vital Sign Days of Exercise per Week: Patient declined Minutes of Exercise per Session: Patient declined Stress: Patient Declined (04/24/2024) Received from [facility] [employer] - Occupational Stress Questionnaire Feeling of Stress : Patient declined Social Connections: Patient Declined (04/24/2024) Received from [facility] Social Connection and Isolation Panel [NHANES] Frequency of Communication with Friends and Family: Patient declined Frequency of Social Gatherings with Friends and Family: Patient declined Attends Shinto Services: Patient declined Active Member of Clubs or Organizations: Patient declined Attends Club or Organization Meetings: Patient declined Marital Status: Patient declined Interpersonal Safety: Unknown (04/24/2024) Received from [facility] Humiliation, Afraid, Rape, and Kick questionnaire Fear of Current or Ex-Partner: Patient declined Emotionally Abused: Patient declined Physically Abused: Not on file Sexually Abused: Patient declined Housing Instability: Patient Declined (04/24/2024) Received from [facility] Housing Stability Vital Sign Unable to [...] Urinalysis: Lab Results Component Value Date COLOR ALISAS (A) 06/29/2024 TURBIDITY CLEAR 06/29/2024 SPECIFICGRA 1.015 06/29/2024 NITRITE Negative 06/29/2024 PHURINE 5.5 06/29/2024 LEUKOCYTE Negative 06/29/2024 PROTEIN 50 (A) 06/29/2024 KETONES Negative 06/29/2024 UROBILINOGEN <1.1 06/29/2024 BLOODHGB Large (A) 06/29/2024 Imaging Results: CT abdomen and pelvis with contrast Order: [id number] Status: Final result Visible to patient: No (scheduled for 07/02/2024 8:00 PM) Next appt: None 0 Result Notes Details Reading Physician Reading Date Result Priority Fito Alexander MD [phone] 06/28/2024 STAT Narrative & Impression CT ABDOMEN [...] unless Cr worsens significantly. Transfuse as necessary. [employer] 06-29-2024 History and physical note Images from the original note were not included. Trauma Surgery History & Physical Examination /Consultation Note Patient: Neptali Loyola Date of : 1945 Estimated time of injury: 06/28/24 afternoon LOC: Unknown Transport: EMS from [place] Trauma level: Level 1 Work related: No History of Present Illness Neptali Loyola is an 78 y.o. White or male presented to [facility] ED via EMS as a level 2 [...] History: Diagnosis Date Coronary [place] [place] Hem[place]oids Memory loss [place] [place] Urinary tract infection Fall: Fall occurred: standing [...] Resource Strain: Patient Declined (04/24/2024) Received from [facility] Overall Financial Resource Strain (CARDIA) Difficulty of Paying Living Expenses: Patient declined Food Insecurity: No Food Insecurity (06/29/2024) Hunger Screening Food Insecurity - Worry: Never True Food Insecurity - Inability: Never True Transportation Needs: Patient Declined (04/24/2024) Received from [facility] OMARE - Transportation Lack of Transportation (Medical): Patient declined Lack of Transportation (Non-Medical): Patient declined Physical Activity: Patient Declined (04/24/2024) Received from [facility] Exercise Vital Sign Days of Exercise per Week: Patient declined Minutes of Exercise per Session: Patient declined Stress: Patient Declined (04/24/2024) Received from [facility] [employer] - Occupational Stress Questionnaire Feeling of Stress : Patient declined Social Connections: Patient Declined (04/24/2024) Received from [facility] Social Connection and Isolation Panel [NHANES] Frequency of Communication with Friends and Family: Patient declined Frequency of Social Gatherings with Friends and Family: Patient declined Attends Shinto Services: Patient declined Active Member of Clubs or Organizations: Patient declined Attends Club or Organization Meetings: Patient declined Marital Status: Patient declined Interpersonal Safety: Unknown (04/24/2024) Received from [facility] Humiliation, Afraid, Rape, and Kick questionnaire Fear of Current or Ex-Partner: Patient declined Emotionally Abused: Patient declined Physically Abused: Not on file Sexually Abused: Patient declined Housing Instability: Patient Declined (04/24/2024) Received from [facility] Housing Stability Vital Sign Unable to [...] Result Value Ref Range Blood component type [id number] Unit number [id number] Unit ABO O Unit RH POS Crossmatch Compatible Status of unit ISSUED Expiration Date [id number] BB Type Barcode 5100 ABO Rh Repeat Collection Time: 06/29/24 1:30 AM Result Value Ref Range ABO A RH Positive Crossmatch RBC: Collection Time: 06/29/24 1:30 AM Result Value Ref Range Blood component type [id number] Unit number [id number] Unit ABO O Unit RH POS Crossmatch Compatible Status of unit SELECTED Expiration Date [id number] BB Type Barcode 5100 Crossmatch RBC: Collection Time: 06/29/24 1:30 AM Result Value Ref Range Blood component type [id number] Unit number [id number] Unit ABO O Unit RH POS Crossmatch Compatible Status of unit SELECTED Expiration Date [id number] BB Type Barcode 5100 Crossmatch RBC: Collection Time: 06/29/24 1:30 AM Result Value Ref Range Blood component type [id number] Unit number [id number] Unit ABO O Unit RH POS Crossmatch Compatible Status of unit SELECTED Expiration Date [id number] BB Type Barcode 5100 Crossmatch RBC: Collection Time: 06/29/24 1:30 AM Result Value Ref Range Blood component type [id number] Unit number [id number] Unit ABO O Unit RH POS Status of unit ISSUED Expiration Date [id number] BB Type Barcode 5100 Crossmatch RBC: Collection Time: 06/29/24 1:30 AM Result Value Ref Range Blood component type [id number] Unit number [id number] Unit ABO O Unit RH POS Status of unit ISSUED Expiration Date [id number] BB Type Barcode 5100 Crossmatch RBC: Collection Time: 06/29/24 1:30 AM Result Value Ref Range Blood component type [id number] Unit number [id number] Unit ABO O Unit RH POS Status of unit ISSUED Expiration Date [id number] BB Type Barcode 5100 Crossmatch RBC: Collection Time: 06/29/24 1:30 AM Result Value Ref Range Blood component type [id number] Unit number [id number] Unit ABO O Unit RH POS Status of unit /RELEASED Expiration Date BB Type Barcode 5100 Crossmatch RBC: Collection Time: 06/29/24 1:30 AM Result Value Ref Range Blood component type [id number] Unit number [id number] Unit ABO O Unit RH POS Status of unit /RELEASED Expiration Date BB Type Barcode 5100 Crossmatch RBC: Collection Time: 06/29/24 1:30 AM Result Value Ref Range Blood component type [id number] Unit number [id number] Unit ABO O Unit RH POS Status of unit /RELEASED Expiration Date [id number] BB Type Barcode 5100 Protime & INR [...] Procedure Component Value - Date/Time Urine culture [[id number]] Resulted: 06/29/24 0320 Lab Status: In process Specimen: Urine Updated: 06/29/24 0331 Urine culture [[id number]] Collected: 06/28/24 2100 Lab Status: No result Specimen: Urine Blood culture, peripheral #2 [[id number]] Collected: 06/28/24 1907 Lab Status: In process Specimen: Blood, Peripheral Draw Updated: 06/28/24 191 Blood culture, peripheral #1 [[id number]] Collected: 06/28/24 1859 Lab Status: In process Specimen: Blood, Peripheral Draw Updated: 06/28/241913 SARS/FLU A+B/RSV by NAAT/Molecular (M4RT Collection Tube) [[id number]] Collected: 06/28/24 181 Lab Status: Final result [...] operators who are performing tests using either [employer] or [employer] systems and is limited to laboratories that [...] specimen repeat. Fact Sheet for Healthcare Providers: https://www.fda.gov/media/939869/do wnload Fact Sheet for Patients: https://www.fda.gov/media/110859/do wnload Independently reviewed trauma specific results. Radiology [...] is 56.5 and plateaued after trending upward. 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 Patient was transferred to [facility] as a level 2 trauma activation. Due to hypotension he was upgraded to a level 1 activation. Patient evaluated by ATLS protocol. Initial GCS of 15. To crystalloid infusion and then 1 PRBC. No additional testing was done. Patient to be admitted to the surgical intensive care unit with consultation to urology [facility] [employer] Work Phone: 06-29-2024 History and physical note Images from the original note were not included. Trauma Surgery History & Physical Examination /Consultation Note Patient: Neptali Loyola Date of : 1945 Estimated time of injury: 06/28/24 afternoon LOC: Unknown Transport: EMS from [place] Trauma level: Level 1 Work related: No History of Present Illness Neptali Loyola is an 78 y.o. White or male presented to [facility] ED via EMS as a level 2 [...] History: Diagnosis Date Coronary artery disease Dementia ([facility]) Hemorrhoids Memory loss Myocardial infarction ([facility]) Urinary tract infection Fall: Fall occurred: standing [...] Resource Strain: Patient Declined (04/24/2024) Received from [facility] Overall Financial Resource Strain (CARDIA) Difficulty of Paying Living Expenses: Patient declined Food Insecurity: No Food Insecurity (06/29/2024) Hunger Screening Food Insecurity - Worry: Never True Food Insecurity - Inability: Never True Transportation Needs: Patient Declined (04/24/2024) Received from [facility] TA - Transportation Lack of Transportation (Medical): Patient declined Lack of Transportation (Non-Medical): Patient declined Physical Activity: Patient Declined (04/24/2024) Received from [facility] Exercise Vital Sign Days of Exercise per Week: Patient declined Minutes of Exercise per Session: Patient declined Stress: Patient Declined (04/24/2024) Received from [facility] [employer] - Occupational Stress Questionnaire Feeling of Stress : Patient declined Social Connections: Patient Declined (04/24/2024) Received from [facility] Social Connection and Isolation Panel [NHANES] Frequency of Communication with Friends and Family: Patient declined Frequency of Social Gatherings with Friends and Family: Patient declined Attends Shinto Services: Patient declined Active Member of Clubs or Organizations: Patient declined Attends Club or Organization Meetings: Patient declined Marital Status: Patient declined Interpersonal Safety: Unknown (04/24/2024) Received from [facility] Humiliation, Afraid, Rape, and Kick questionnaire Fear of Current or Ex-Partner: Patient declined Emotionally Abused: Patient declined Physically Abused: Not on file Sexually Abused: Patient declined Housing Instability: Patient Declined (04/24/2024) Received from [facility] Housing Stability Vital Sign Unable to [...] Result Value Ref Range Blood component type [id number] Unit number [id number] Unit ABO O Unit RH POS Crossmatch Compatible Status of unit ISSUED Expiration Date [id number] BB Type Barcode 5100 ABO Rh Repeat Collection Time: 06/29/24 1:30 AM Result Value Ref Range ABO A RH Positive Crossmatch RBC: Collection Time: 06/29/24 1:30 AM Result Value Ref Range Blood component type [id number] Unit number [id number] Unit ABO O Unit RH POS Crossmatch Compatible Status of unit SELECTED Expiration Date [id number] BB Type Barcode 5100 Crossmatch RBC: Collection Time: 06/29/24 1:30 AM Result Value Ref Range Blood component type [id number] Unit number [id number] Unit ABO O Unit RH POS Crossmatch Compatible Status of unit SELECTED Expiration Date [id number] BB Type Barcode 5100 Crossmatch RBC: Collection Time: 06/29/24 1:30 AM Result Value Ref Range Blood component type K5994K42 Unit number [id number] Unit ABO O Unit RH POS Crossmatch Compatible Status of unit SELECTED Expiration Date [id number] BB Type Barcode 5100 Crossmatch RBC: Collection Time: 06/29/24 1:30 AM Result Value Ref Range Blood component type [id number] Unit number [id number] Unit ABO O Unit RH POS Status of unit ISSUED Expiration Date [id number] BB Type Barcode 5100 Crossmatch RBC: Collection Time: 06/29/24 1:30 AM Result Value Ref Range Blood component type M5630D25 Unit number [id number] Unit ABO O Unit RH POS Status of unit ISSUED Expiration Date [id number] BB Type Barcode 5100 Crossmatch RBC: Collection Time: 06/29/24 1:30 AM Result Value Ref Range Blood component type [id number] Unit number [id number] Unit ABO O Unit RH POS Status of unit ISSUED Expiration Date [id number] BB Type Barcode 5100 Crossmatch RBC: Collection Time: 06/29/24 1:30 AM Result Value Ref Range Blood component type M9716J93 Unit number [id number] Unit ABO O Unit RH POS Status of unit /RELEASED Expiration Date BB Type Barcode 5100 Crossmatch RBC: Collection Time: 06/29/24 1:30 AM Result Value Ref Range Blood component type [id number] Unit number [id number] Unit ABO O Unit RH POS Status of unit /RELEASED Expiration Date [id number] BB Type Barcode 5100 Crossmatch RBC: Collection Time: 06/29/24 1:30 AM Result Value Ref Range Blood component type G7833P18 Unit number [id number] Unit ABO O Unit RH POS Status of unit /RELEASED Expiration Date [id number] BB Type Barcode 5100 Protime & INR [...] Procedure Component Value - Date/Time Urine culture [[id number]] Resulted: 06/29/24 0320 Lab Status: In process Specimen: Urine Updated: 06/29/24 0331 Urine culture [[id number]] Collected: 06/28/24 2100 Lab Status: No result Specimen: Urine Blood culture, peripheral #2 [[id number]] Collected: 06/28/24 1907 Lab Status: In process Specimen: Blood, Peripheral Draw Updated: 06/28/241913 Blood culture, peripheral #1 [[id number]] Collected: 06/28/24 1859 Lab Status: In process Specimen: Blood, Peripheral Draw Updated: 06/28/241913 SARS/FLU A+B/RSV by NAAT/Molecular (M4RT Collection Tube) [[id number]] Collected: 06/28/24 181 Lab Status: Final result [...] operators who are performing tests using either [employer] or [employer] systems and is limited to laboratories [...] specimen repeat. Fact Sheet for Healthcare Providers: https://www.fda.gov/media/603816/do wnload Fact Sheet for Patients: https://www.fda.gov/media/618953/do wnload Independently reviewed trauma specific results. Radiology [...] is 56.5 and plateaued after trending upward. 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 Patient was transferred to [facility] as a level 2 trauma activation. Due to hypotension he was upgraded to a level 1 activation. Patient evaluated by ATLS protocol. Initial GCS of 15. To crystalloid infusion and then 1 PRBC. No additional testing was done. Patient to be admitted to the surgical intensive care unit with consultation to urology documented in this encounter [facility] 06-29-2024 Consult note Associated Order (s): IP CONSULT TO HAND PATCHER SICU Academic Critical Care CONSULTATION Name: Neptali Loyola Date: 06/29/2024 Length of Stay: 0 day(s) Chief Concern: Chief Complaint Patient presents with Trauma History of Present Illness Neptali Loyola is an 78 y.o. White or male presented to [facility] ED via EMS as a level 2 [...] History: Diagnosis Date Coronary artery disease [place] Hemorrhoids Memory loss Myocardial infarction [place] Urinary tract infection History reviewed. No pertinent [...] Resource Strain: Patient Declined (04/24/2024) Received from [facility] Overall Financial Resource Strain (CARDIA) Difficulty of Paying Living Expenses: Patient declined Food Insecurity: No Food Insecurity (06/29/2024) Hunger Screening Food Insecurity - Worry: Never True Food Insecurity - Inability: Never True Transportation Needs: Patient Declined (04/24/2024) Received from [facility] TA - Transportation Lack of Transportation (Medical): Patient declined Lack of Transportation (Non-Medical): Patient declined Physical Activity: Patient Declined (04/24/2024) Received from [facility] Exercise Vital Sign Days of Exercise per Week: Patient declined Minutes of Exercise per Session: Patient declined Stress: Patient Declined (04/24/2024) Received from [facility] [employer]ational Health - Occupational Stress Questionnaire Feeling of Stress : Patient declined Social Connections: Patient Declined (04/24/2024) Received from [facility] Social Connection and Isolation Panel [NHANES] Frequency of Communication with Friends and Family: Patient declined Frequency of Social Gatherings with Friends and Family: Patient declined Attends Shinto Services: Patient declined Active Member of Clubs or Organizations: Patient declined Attends Club or Organization Meetings: Patient declined Marital Status: Patient declined Interpersonal Safety: Unknown (04/24/2024) Received from [facility] Humiliation, Afraid, Rape, and Kick questionnaire Fear of Current or Ex-Partner: Patient declined Emotionally Abused: Patient declined Sexually Abused: Patient declined Housing Instability: Patient Declined (04/24/2024) Received from [facility] Housing Stability Vital Sign Unable to [...] Procedure Component Value Units Date/Time Urine culture [[id number]] Resulted: 06/29/24 0320 Specimen: Urine Updated: 06/29/24 033 Blood culture, peripheral #2 [[id number]] Collected: 06/28/241906 Specimen: Blood, Peripheral Draw Updated: 06/28/241913 Blood culture, peripheral #1 [[id number]] Collected: 06/28/241858 Specimen: Blood, Peripheral Draw Updated: 06/28/241913 SARS/FLU A+B/RSV by NAAT/Molecular (M4RT Collection Tube) [[id number]] Collected: 06/28/241809 Specimen: Nasopharynx Updated: 06/28/241946 FLU [...] Procedure Component Value Units Date/Time Urine culture [[id number]] Resulted: 06/29/24319 Specimen: Urine Updated: 06/29/24330 Blood culture, peripheral #2 [[id number]] Collected: 06/28/241906 Specimen: Blood, Peripheral Draw Updated: 06/28/241913 Blood culture, peripheral #1 [[id number]] Collected: 06/28/241858 Specimen: Blood, Peripheral Draw Updated: 06/28/241913 SARS/FLU A+B/RSV by NAAT/Molecular (M4RT Collection Tube) [[id number]] Collected: 06/28/241809 Specimen: Nasopharynx Updated: 06/28/241946 FLU [...] Meds: None PMH: CAD, hypertension, hyperlipidemia, previous SD, AFib Home meds: Eliquis, Plavix 3. Resp: [...] and titration of care by critical care inking machine tender. Failure to do so may result in [...] MD Trauma/Surgical Critical Care 06/29/2024 10:06 AM [employer] Work Phone: 06-29-2024 Emergency department Note Pt Blood infusion rate changed to 200 ml/hr by Roxane MCGINNIS, no adverse reactions noted from pt [employer] 06-29-2024 Emergency department Note Pt Blood infusion rate changed to 200 ml/hr by Roxane MCGINNIS, no adverse reactions noted from pt Bed: 18 Expected date: Expected time: Means of arrival: Comments: T1 Pt arrives to the ED as [place] Adult level two Trauma transfer. Pt is [...] from the original note were not included. [facility] - EMERGENCY DEPARTMENT Pt Name: Neptali Loyola Birthdate: 1945 Chief Complaint: No chief complaint on file. History of Present Illness: Initial evaluation by Dr. Jaimes (attending) and Dr. Chiang (resident) at 1:30 AM 78 y.o. male patient presents to the ED via EMS as a level 2 trauma alert for evaluation of fall. Patient presented to an [facility] ER after his legs gave out [...] much information himself. Son gave history to airconditioning engineer. 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 Overall Financial Resource Strain (CARDIA) Difficulty of Paying Living Expenses: Patient declined Food Insecurity: No Food Insecurity (06/28/2024) Hunger Screening Food Insecurity - Worry: Never True Food Insecurity - Inability: Never True Transportation Needs: Patient Declined (04/24/2024) Received from [facility] TA - Transportation Lack of Transportation (Medical): Patient declined Lack of Transportation (Non-Medical): Patient declined Physical Activity: Patient Declined (04/24/2024) Received from [facility] Exercise Vital Sign Days of Exercise per Week: Patient declined Minutes of Exercise per Session: Patient declined Stress: Patient Declined (04/24/2024) Received from [facility] [employer] - Occupational Stress Questionnaire Feeling of Stress : Patient declined Social Connections: Patient Declined (04/24/2024) Received from [facility] Social Connection and Isolation Panel [NHANES] Frequency of Communication with Friends and Family: Patient declined Frequency of Social Gatherings with Friends and Family: Patient declined Attends Shinto Services: Patient declined Active Member of Clubs or Organizations: Patient declined Attends Club or Organization Meetings: Patient declined Marital Status: Patient declined Interpersonal Safety: Unknown (04/24/2024) Received from [facility] Humiliation, Afraid, Rape, and Kick questionnaire Fear of Current or Ex-Partner: Patient declined Emotionally Abused: Patient declined Sexually Abused: Patient declined Housing Instability: Patient Declined (04/24/2024) Received from [facility] Stability Vital Sign Unable to Pay for [...] with stent placed earlier this month at [facility]. CT at original facility demonstrated postop changes [...] team was at bedside in the [facility] [place] at time of patient's arrival. Additional labs [...] Attestation: Dr. Fiona Herrera personally performed a ethd-jw-tcch diagnostic evaluation on this patient. I have [...] lithotripsy with stent earlier this month (at [facility]). CT showing post-op changes left kidney, active extravasation. Dr. Schwarz reviewed CT. It was a ground level fall onto his left side, also striking his face. [place] to reverse his Eliquis before sending patient. Vitals: 108/44, HR 78, RR 22, 98% on RA. 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 Pt is alert, and oriented and able to answer questions appropriately. Pt arrive with bilateral IVS, and a jorgensen catheter in place. Pt was upgraded to adult level 1 trauma by Trauma Team on arrival. Pt hypotensive on arrival. [facility] 06-29-2024 Emergency department Note Chest xray obtained at this time [facility] 06-29-2024 Emergency department Note EMS stretcher to bed [facility] 06-29-2024 Emergency department Note Pt arrived to ED T1 [facility] 06-29-2024 Physician Emergency department Note Images from the original note were not included. [facility] - EMERGENCY DEPARTMENT Pt Name: Neptali Loyola Birthdate: 1945 Chief Complaint: No chief complaint on file. History of Present Illness: Initial evaluation by Dr. Jaimes (attending) and Dr. Chiang (resident) at 1:30 AM 78 y.o. male patient presents to the ED via EMS as a level 2 trauma alert for evaluation of fall. Patient presented to an [facility] ER after his legs gave out [...] much information himself. Son gave history to airconditioning engineer. 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 Overall Financial Resource Strain (CARDIA) Difficulty of Paying Living Expenses: Patient declined Food Insecurity: No Food Insecurity (06/28/2024) Hunger Screening Food Insecurity - Worry: Never True Food Insecurity - Inability: Never True Transportation Needs: Patient Declined (04/24/2024) Received from [facility] PRAPARE - Transportation Lack of Transportation (Medical): Patient declined Lack of Transportation (Non-Medical): Patient declined Physical Activity: Patient Declined (04/24/2024) Received from [facility] Exercise Vital Sign Days of Exercise per Week: Patient declined Minutes of Exercise per Session: Patient declined Stress: Patient Declined (04/24/2024) Received from [facility] [employer] - Occupational Stress Questionnaire Feeling of Stress : Patient declined Social Connections: Patient Declined (04/24/2024) Received from [facility] Social Connection and Isolation Panel [NHANES] Frequency of Communication with Friends and Family: Patient declined Frequency of Social Gatherings with Friends and Family: Patient declined Attends Shinto Services: Patient declined Active Member of Clubs or Organizations: Patient declined Attends Club or Organization Meetings: Patient declined Marital Status: Patient declined Interpersonal Safety: Unknown (04/24/2024) Received from [facility] Humiliation, Afraid, Rape, and Kick questionnaire Fear of Current or Ex-Partner: Patient declined Emotionally Abused: Patient declined Sexually Abused: Patient declined Housing Instability: Patient Declined (04/24/2024) Received from [facility] Housing Stability Vital Sign Unable to [...] with stent placed earlier this month at [facility]. CT at original facility demonstrated postop changes [...] team was at bedside in the [facility] [place] at time of patient's arrival. Additional labs [...] Attestation: Dr. Fiona Herrera personally performed a [id number]-[id number] diagnostic evaluation on this patient. I have [...] Do, MD at 06/30/2024 6:33 AM EST [facility] 06-29-2024 Emergency department Note Neptali Loyola (: 45) - Level [address] Schwarz, Fall / Renal Lac 78M, Hx: Afib on Eliquis. Patient had recent lithotripsy with stent earlier this month (at [facility]). CT showing post-op changes left kidney, active extravasation. Dr. Schwarz reviewed CT. It was a ground level fall onto his left side, also striking his face. [place] to reverse his Eliquis before sending patient. Vitals: 108/44, HR 78, RR 22, 98% on RA. RN Report from [facility] @ 0041 Arrived for dizziness Lithotripsy recently Hypotensive on arrival 68/48 Son reported pt fell face first MANUFACTURING INTERN 1L saline, 1700mL LR IV in R [...] oriented but occasionally forgetful Left @ [facility]-29-2024 Emergency department Note Bed: T1 Expected date: Expected time: Means of arrival: [facility] Comments: 78 y/o male A&Ox4 [place] Level 2 trauma transfer HR 65 97% RA RR 16 95/49 500mL bolus initiated by EMS ETA 10 min [facility] 06-19-2024 Note [facility] 06-19-2024 Note [facility] 05-21-2024 Note [facility] 05-21-2024 Note [facility] 04-24-2024 Note [facility] 04-24-2024 Note [facility] 04-19-2024 Note [facility] 04-02-2024 Note [facility] 04-02-2024 Note [facility] 03-13-2024 Note [facility] 03-06-2024 Note [facility] 03-06-2024 Note [facility] 03-06-2024 [place] [facility] [facility]24 Note [facility] 03-05-2024 Note [facility] 03-05-2024 Note [facility] 03-05-2024 Note [facility] 03-05-2024 Note [facility] 03-05-2024 Note [facility] 03-04-2024 Note [facility] 03-04-2024 Note [facility] 03-04-2024 Note Physical Therapy PM Cancellation note Monday03/04/2024 Pt per nursing is currently off the floor and 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 Attempted time : 14:08-14:10 [facility] 03-04-2024 Note [facility] 03-04-2024 Note [facility] 03-04-2024 Note [facility] 03-03-2024 Note [facility] 03-03-2024 Note Sent updates to Lino conn at the [place]. [facility] 03-02-2024 Note [facility] 03-02-2024 Note [facility] 03-02-2024 Note [facility] 03-02-2024 Note [facility] 03-01-2024 Note [facility] 03-01-2024 Note [facility] 03-01-2024 Note [facility] 03-01-2024 Note [facility] 02-29-2024 Note [facility] 02-29-2024 Note [facility] 02-29-2024 Note [facility] 02-29-2024 Note [facility] 02-29-2024 Note [facility] 02-29-2024 Note [facility] 02-29-2024 Note [facility] 02-28-2024 Note [facility] 02-28-2024 Note [facility] 02-28-2024 Note Physical Therapy Patient medically unstable, not appropriate for PT evaluation. Will follow up and evaluate as appropriate. Kuldeep Garces PT, DPT [facility] 02-28-2024 Note Occupational Therapy Name: Neptali Loyola Date of : 1945 Today's Date: 02/28/24 Pt is unable to be seen for therapy at this time secondary to Medically unstable per nsg . Check No Charge Time attempted: 908 [facility] 02-28-2024 Note Discharge Planning U pdate: 0906 Attempted to see patient but was unsuccessful as patient is currently having severe difficulty breathing & talking so they may possible be intubated soon if needed. OTM to follow. [facility] 02-28-2024 Note [facility] 02-28-2024 Note [facility] 02-27-2024 Note [facility] 02-27-2024 Note [facility] 02-27-2024 Note [facility] 02-27-2024 Note [facility] 02-26-2024 Note [facility] 02-26-2024 Note [facility] 02-09-2024 Note [facility] 01-10-2024 Note [facility] 01-10-2024 Note [facility] Evaluation + Plan note No data available for this section [facility] Evaluation note No assessment information [facility] Work Phone: Evaluation note Diagnosis Fall in home, initial encounter- Primary Fall in home, initial encounter Acute blood loss anemia Acute posthemorrhagic anemia [facility] No data available for this section [facility] InstructionsNot on filedocumented in this encounter [facility] No data available for this section [facility] Summary Purpose Family History No Family [...] May 15, 2024 End: May 15, 2024 [employer] We[employer] Technician Relationship Specialty Start Date End Date Miguel Garcia APRN-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 [address] [place] [id number] [phone] PCP - [facility] 02/22/24 [employer] We[employer] Technician Relationship Specialty Start Date End Date Miguel Garcia APRN-ELECTRIC 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 [address] [place] [id number] PCP - [facility] 02/22/24 Team Status: Inactive Member Role Status Dates Kelvin Langston MD Attending Provider Active Start: August 29, 2024 End: August 29, 2024 (unrecognized sect ion and content) No Status Records FoundNo Status Records FoundNo Status Records FoundNo Status Records FoundNo Status Records Found INFORMATION SOURCE (unrecogn ized section and content) DATE CREATED AUTHOR 01/03/2024 [facility] DATE CREATED AUTHOR AUTHOR'S ORGANIZ ATION 07/17/2024 [facility] DATE CREATED AUTHOR AUTHOR'S ORGANIZ ATION 08/10/2024 [facility] DATE CREATED AUTHOR AUTHOR'S ORGANIZ ATION 09/01/2024 [facility] DATE CREATED AUTHOR AUTHOR'S ORGANIZ ATION 01/07/2025 [facility] Goals (unrecognized section and content) Goals may be documented in a n alternate section Reason for Visit (unrecogniz ed section and content) Reason Comments Trauma Specialty Diagnoses / Procedures Referred By Shasha t Referred To Contact Diagnoses Fall in home, initial encounter Ru Schwarz MD [address] [place] [address] Phone: tel: fax: Referral ID Status Reason Start Date Expiration Date Visits Re quested Visits Authorized [id number] 1 1 Reason Onset Date Comments Blood [...] RN) 902 (Given - Provider: Randolph Laguerre, ARS)2058 (Given - Provider: Zelda Vasquez RN) 100 [...] RN) 2100 (Given - Provider: Zelda Vasquez, ARS) carvediloL (COREG) tablet 3.125 mg 3.125 mg, [...] 06/29/24 at 2100 08 (Given - Provider: Kyalah Maxwell RN)2122 (Given - Provider: Jazmín Hansen [...] VESICANT (RED) Warning: HYPERTONIC solution. flu vacc [id number] 6mos up(PF) (FLULAVAL/FLUZONE/FLUARIX TRIV) injection syringe 0.5 [...] BE BASED ON THE PRIMARY CLINICAL RECORDS. [employer] provides no warranty or guarantee of the accuracy or completeness of information in this document.
== END 2025-01-08 10:00 | disposition home or self-care (01) ==
LOC: US 09:59
PROVIDERS: PCP Family Medicine; Visit Provider Urology
DX: N20.0 Calculus of kidney (principal); N28.1 Cyst of kidney, acquired
CPT/HCPCS: 76775